=== PATIENT | female | born 1990 | race African-American/Black ===

== ENCOUNTER 2023-02-28 15:03 | Outpatient (OUT) | payer OTHER, SELFPAY ==
--- NOTE | 2023-02-28 15:19 | US_ITS ---
[address] [address] Patient Name: LISHA FONSECA MRN: [id number] date: 1990 Sex: F Assigned Patient Location: [place] Current Patient Location: [place] Accession/Order Number: [id number] Exam Date: 02/28/2023 15:30 Report Date: 02/28/2023 16:47 At the request of: MARIA HARTLEY Procedure: US pelvis w/ transvaginal EXAMINATION: US pelvis w/ transvaginal HISTORY: Menorrhagia w/cycle N92.0, Endometriosis N80.9, D21.9 ; follow-up right ovarian cyst COMPARISON: Ultrasound pelvis 11/29/2022 TECHNIQUE: Transabdominal and/or transvaginal sonographic examination was performed as indicated by examination type. FINDINGS: UTERUS: Normal size and appearance. Uterus size: 9.6 x 4.1 x 5.0 cm ENDOMETRIUM: Normal homogeneous appearance. IUD within endometrial cavity. Endometrial thickness: 2 mm RIGHT OVARY: Contains a 6.5 x 5.7 x 3.9 cm simple appearing cyst. Duplex Doppler demonstrates normal waveform and flow; resistive index 0.5. Ovary size: 7.1 x 4.3 x 6.0 cm LEFT OVARY: Contains a 2.5 x 1.4 x 1.9 cm simple appearing cyst. Duplex Doppler demonstrates normal waveform and flow; resistive index 0.5. Ovary size: 4.4 x 2.3 x 3.0 cm CUL-DE-SAC: Unremarkable. No significant free fluid. BLADDER: Unremarkable. OTHER: None. IMPRESSION: 1. Stable, large, but benign-appearing simple cyst within right ovary. 2. New, 2.5 cm benign-appearing cyst within left ovary. Electronically authenticated by: KALPESH FOWLER Date: 02/28/2023 16:47
== END 2023-02-28 15:04 ==
LOC: US 15:07
PROVIDERS: Visit Provider Obstetrics & Gynecology
DX: N92.0 Excessive and frequent menstruation with regular cycle (principal); N80.9 Endometriosis, unspecified; D21.9 Benign neoplasm of connective and other soft tissue, unspecified; N83.202 Unspecified ovarian cyst, left side
CPT/HCPCS: 76830; 76856

== ENCOUNTER 2023-07-09 20:23 | Outpatient (REF) | payer OTHER, SELFPAY ==
[2023-07-16 11:08] LABS: Age Gdln ACOG Testing Note (.); HPV Aptima Negative (Negative); IGP, Aptima HPV, rfx 16/18,45 Note (.)
== END 2023-07-09 20:24 | disposition home or self-care (01) ==
LOC: LAB 20:23
PROVIDERS: Visit Provider Obstetrics & Gynecology
DX: Z01.419 Encounter for gynecological examination (general) (routine) without abnormal findings (principal)
CPT/HCPCS: 87624; G0145

== ENCOUNTER 2024-02-19 11:12 | Outpatient (OUT) | payer OTHER, SELFPAY ==
--- NOTE | 2024-02-19 11:18 | US_ITS ---
The [address] [address] Patient Name: LISHA FONSECA MRN: [id number] date: 1990 Sex: F Assigned Patient Location: [facility] Current Patient Location: [facility] Accession/Order Number: [id number] Exam Date: 02/19/2024 11:18 Report Date: 02/19/2024 12:27 At the request of: MARIA HARTLEY Procedure: US pelvis transvaginal Ultrasound pelvis, non-obstetric CLINICAL: UNABLE TO LOCATE IUD STRINGS FOR REMOVAL TECHNIQUE: Transvaginal pelvic ultrasound was performed. FINDINGS: Comparison: None. The uterus is anteverted and anteflexed in position. It measures 9.2 x 4.2 x 6.7 cm. There is no discrete myometrial mass. The endometrial complex measures 5 mm in thickness. There is a linear echogenic structure with shadowing seen within the endometrium compatible with intrauterine device. The stem is oriented longitudinally into the lower uterine segment, and the arms of the IUD are seen at the fundus. The right ovary measures 4.4 x 4.1 x 3.1 cm, with a dominant unilocular cyst measuring 3.7 x 3.6 x 2.2 cm. The left ovary measures 3.4 x 2.5 x 2.1 cm. There is normal vascular flow to both ovaries, with resistive index of 0.6 on right and 0.6 on the left. There is no free pelvic fluid or mass seen on either side. US/US pelvis transvaginal IMPRESSION: 1. Intrauterine device located in expected position within the uterus. The stem is oriented longitudinally into the lower uterine segment and the arms of the IUD are at the fundus. Otherwise, normal appearance of the uterus. 2. Dominant 3.4 cm unilocular cyst in right ovary. Otherwise, normal appearance of both ovaries were normal vascular flow. 3. No free pelvic fluid. Electronically authenticated by: JC BOWEN Date: 02/19/2024 12:27
== END 2024-02-19 11:13 | disposition home or self-care (01) ==
LOC: NOMS 11:16
PROVIDERS: Visit Provider Obstetrics & Gynecology
DX: N83.291 Other ovarian cyst, right side (principal); Z30.432 Encounter for removal of intrauterine contraceptive device
CPT/HCPCS: 76830

== ENCOUNTER 2024-02-19 11:59 | Outpatient (OUT) | payer OTHER, SELFPAY | END 2024-02-19 12:00 | disposition home or self-care (01) | LOC: PST 12:00 | PROVIDERS: Visit Provider Obstetrics & Gynecology | DX: Z01.818 Encounter for other preprocedural examination (principal); T83.39XA Other mechanical complication of intrauterine contraceptive device, initial encounter ==

== ENCOUNTER 2024-02-22 07:55 | Day surgery (SDC) | payer OTHER, SELFPAY ==
[2024-02-19 12:34] VITALS: BP 129/72; PULSE 60; TEMP 36.2; O2SAT 100; BMI 28.9
[2024-02-22 08:04] LABS: Basophils Percent Auto 0.3 % (0.2-2.0); Eosinophils Absolute Auto 0.1 10^3/uL (0.0-0.7); Eosinophils Percent Auto 0.7 % (0.9-7.0); Hematocrit 33.5 % (36.0-48.0); Hemoglobin 10.4 g/dL (12.0-16.0); Immature Granulocytes Abs Auto 0.03 10^3/uL (0.00-0.03); Immature Granulocytes Pct Auto 0.3 % (0.0-0.5); Lymphocytes Percent Auto 20.7 % (20.5-60.0); Mean Corpuscular Hemoglobin 23.6 pg (26.7-34.0); Mean Platelet Volume 10.2 fL (9.5-13.5); Monocytes Absolute Auto 0.5 10^3/uL (0.3-0.8); Monocytes Percent Auto 4.8 % (1.7-12.0); Neutrophils Percent Auto 73.2 % (43.0-75.0); Platelet Count 198 10^3/uL (150-450); Red Blood Count 4.41 10^6/uL (4.20-5.40); Red Cell Distribution Width 13.9 % (11.0-15.0); White Blood Count 9.6 10^3/uL (4.0-11.0)
--- OUTSIDE RECORDS SUMMARY | 2024-02-22 08:06 | XMS_ITS | CCD ---
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 Anemia, unspecified; Translations: [Anemia, unspecified] Onset: 12-25-2022 Episodic Immunizations and screening for infectious disease (1 source) Encounter for screening for human papillomavirus (HPV); Translations: [ENC SCREENING HUMAN PAPILLOMAVIRUS] Onset: 07-05-2022 Episodic Other female genital disorders (4 sources) Other specified noninflammatory disorders of vagina; Translations: [OTH SPEC NONINFLAMMATORY D/O VAGINA] Onset: 07-03-2022 Episodic Other gastrointestinal disorders (6 sources) Constipation, unspecified; Translations: [CONSTIPATION UNSPECIFIED] Onset: 04-11-2022 Episodic Other gastrointestinal disorders (4 sources) Intra-abdominal and pelvic swelling, mass and lump, unspecified site; Translations: [INTRA-ABD PELV SWELL MASS LUMP] Onset: 02-20-2022 Episodic Other gastrointestinal disorders (2 sources) Personal history of other diseases of the digestive system; Translations: [Personal history of other diseases of the digestive system] Onset: 12-25-2022 Episodic Other gastrointestinal disorders (3 sources) Abdominal distension (gaseous); Translations: [Abdominal distension (gaseous)] Onset: 01-29-2023 Episodic Other nervous system disorders (4 sources) Other acute postprocedural pain; Translations: [OTHER ACUTE POSTPROCEDURAL PAIN] Onset: 04-18-2022 Episodic Other screening for suspected conditions (not mental disorders or infectious disease) (1 source) Encounter for screening for malignant neoplasm of cervix; Translations: [ENC SCREENING MALIG NEOPLASM CERV] Onset: 07-05-2022 Episodic Spondylosis; intervertebral disc disorders; other back problems (1 source) Cervicalgia; Translations: [Cervicalgia] Onset: 03-14-2023 Episodic Unclassified (4 sources) Onset: 06-03-2015 Resolved: 08-17-2020 08-27-2020 Results Test Name Value Interpretation Reference Range Facility B-Type Natriuretic Peptideon 11-24-2023 Natriuretic peptide B (Bld) [Mass/Vol] 13.0 pg/mL Normal 5-100 [facility] Comment on above: Result Comment: PERF ORMED BY: [place] [address] PATHOLOGIST [employer] CLAU ZAVALA M.D. Performed By: #### E SR, TSH3, CRP #### [place] [address] [place] #### CALPROTECT, CELIAC #### [facility] , Basic Metabolic Panelon 03-0 Anion gap [Moles/Vol] 8.4 mmol/L Normal 6.0-15.0 [facility] Comment on above: Performed By: #### E SR, TSH3, CRP #### [facility] [address] [place] [address] #### CALPROTECT, CELIAC #### [facility] , Calcium [Mass/Vol] 8.8 mg/dL Normal 8.6-10.3 [facility] Comment on above: Performed By: #### E SR, TSH3, CRP #### [facility] [address] [place] [address] [place] #### CALPROTECT, CELIAC #### [facility] , Chloride [Moles/Vol] 104 mmol/L Normal 98-107 [facility] Comment on above: Performed By: #### E SR, TSH3, CRP #### [facility] [address] [place] [address] #### CALPROTECT, CELIAC #### [facility] , CO2 [Moles/Vol] 27.5 mmol/L Normal 21.0-31.0 [facility] Comment on above: Performed By: #### E SR, TSH3, CRP #### [facility] [address] [place] [address] #### CALPROTECT, CELIAC #### [facility] , Creatinine [Mass/Vol] 0.77 mg/dL Normal 0.60-1.20 [facility] Comment on above: Performed By: #### E SR, TSH3, CRP #### [facility] [address] [place] [address] [place] #### CALPROTECT, CELIAC #### [facility] , Creatinine Clr Calc Pharmacy 103.65 Normal [facility] Comment on above: Result Comment: PERF ORMED BY: [place] [address] PATHOLOGIST [employer] CLAU ZAVALA M.D. Performed By: #### E SR, TSH3, CRP #### [place] [address] [place] #### CALPROTECT, CELIAC #### [facility] , GFR/1.73 sq M.predicted MDRD (S/P/Bld) [Vol rate/Area] mL/min/{1.73_m2} Normal [facility] Comment on above: Performed By: #### E SR, TSH3, CRP #### [facility] [address] [place] [address] [place] #### CALPROTECT, CELIAC #### [facility] , Glucose [Mass/Vol] 103 mg/dL High 70-100 [facility] Comment on above: Result Comment: [facility] Glucose Reference Range is dependent on time and content of last meal. Glucose of more than 200 mg/dL in a nonstressed, ambulatory subject supports the diagnosis of Diabetes Mellitus. ADA recommended reference range Performed By: #### E SR, TSH3, CRP #### [place] [address] [place] #### CALPROTECT, CELIAC #### [facility] , Potassium [Moles/Vol] 3.9 mmol/L Normal 3.5-5.1 [facility] Comment on above: Performed By: #### E SR, TSH3, CRP #### [place] [address] [place] #### CALPROTECT, CELIAC #### [facility] , Sodium [Moles/Vol] 136 mmol/L Normal 136-145 [facility] Comment on above: Performed By: #### E SR, TSH3, CRP #### [facility] [address] [place] [address] [place] #### CALPROTECT, CELIAC #### [facility] , Urea nitrogen [Mass/Vol] 16 mg/dL Normal 7-25 [facility] Comment on above: Performed By: #### E SR, TSH3, CRP #### [facility] [address] [place] [address] [place] #### CALPROTECT, CELIAC #### [facility] , Complete Blood Count Auto Di ffon 11-24-2023 Basophils (Bld) [#/Vol] 0.0 10*3/uL Normal 0.0-0.2 [facility] Comment on above: Result Comment: PERF ORMED BY: [place] [address] PATHOLOGIST [employer] CLAU ZAVALA M.D. Performed By: #### E SR, TSH3, CRP #### [address] #### CALPROTECT, CELIAC #### [facility] , Basophils/100 WBC (Bld) 0.6 % Normal . [facility] Comment on above: Performed By: #### E SR, TSH3, CRP #### [address] #### CALPROTECT, CELIAC #### [facility] , Eosinophils (Bld) [#/Vol] 0.1 10*3/uL Normal 0.0-0.45 [facility] Comment on above: Performed By: #### E SR, TSH3, CRP #### [facility] [address] [place] [address] #### CALPROTECT, CELIAC #### [facility] , Eosinophils/100 WBC (Bld) 1.8 % Normal . [facility] Comment on above: Performed By: #### E SR, TSH3, CRP #### [place] [address] [place] #### CALPROTECT, CELIAC #### [facility] , Erythrocyte distribution width (RBC) [Ratio] 14.3 % Normal 11.9-15.3 [facility] Comment on above: Performed By: #### E SR, TSH3, CRP #### [place] [address] [place] #### CALPROTECT, CELIAC #### [facility] , Hematocrit (Bld) [Volume fraction] 34.8 % Normal 34.0-46.4 [facility] Comment on above: Performed By: #### E SR, TSH3, CRP #### [facility] [address] [place] [address] #### CALPROTECT, CELIAC #### [facility] , Hemoglobin (Bld) [Mass/Vol] 10.9 g/dL Low 11.8-15.4 [facility] Comment on above: Performed By: #### E SR, TSH3, CRP #### [place] [address] [place] #### CALPROTECT, CELIAC #### [facility] , Lymphocytes (Bld) [#/Vol] 1.9 10*3/uL Normal 1.00-4.8 [facility] Comment on above: Performed By: #### E SR, TSH3, CRP #### [facility] [address] [place] [address] #### CALPROTECT, CELIAC #### [facility] , Lymphocytes/100 WBC (Bld) 22.7 % Normal . [facility] Comment on above: Performed By: #### E SR, TSH3, CRP #### [address] #### CALPROTECT, CELIAC #### [facility] , MCH (RBC) [Entitic mass] 23.1 pg Low 24.7-34.3 [facility] Comment on above: Performed By: #### E SR, TSH3, CRP #### [facility] [address] [place] [address] [place] #### CALPROTECT, CELIAC #### [facility] , MCV (RBC) [Entitic vol] 74.1 fL Low 80-100 [facility] Comment on above: Performed By: #### E SR, TSH3, CRP #### [address] [place] [address] [place] #### CALPROTECT, CELIAC #### [facility] , Mean Corpuscular HGB Conc 31.3 g/dL Low 32.0-35.0 [facility] Comment on above: Performed By: #### E SR, TSH3, CRP #### [facility] [address] [place] [address] [place] #### CALPROTECT, CELIAC #### [facility] , Monocytes (Bld) [#/Vol] 0.5 10*3/uL Normal 0.0-0.8 [facility] Comment on above: Performed By: #### E SR, TSH3, CRP #### [address] #### CALPROTECT, CELIAC #### [facility] , Monocytes/100 WBC (Bld) 18.34 % Normal 0.00-20.00 [facility] Comment on above: Performed By: #### E SR, TSH3, CRP #### [facility] [address] [place] [address] [place] #### CALPROTECT, CELIAC #### [facility] , Monocytes/100 WBC (Bld) 6.4 % Normal . [facility] Comment on above: Performed By: #### E SR, TSH3, CRP #### [facility] [address] [place] [address] [place] #### CALPROTECT, CELIAC #### [facility] , Neutrophils (Bld) [#/Vol] 5.7 10*3/uL Normal 1.8-7.7 [facility] Comment on above: Performed By: #### E SR, TSH3, CRP #### [facility] [address] [place] [address] [place] #### CALPROTECT, CELIAC #### [facility] , Neutrophils/100 WBC (Bld) 68.5 % Normal . [facility] Comment on above: Performed By: #### E SR, TSH3, CRP #### [facility] [address] [place] [address] [place] #### CALPROTECT, CELIAC #### [facility] , NRBC% 0.1 /100{WBC} Normal 0-0.5 [facility] Comment on above: Performed By: #### E SR, TSH3, CRP #### [facility] [address] [place] [address] [place] #### CALPROTECT, CELIAC #### [facility] , Platelet mean volume (Bld) [Entitic vol] 9.1 fL Normal 6.3-10.7 [facility] Comment on above: Performed By: #### E SR, TSH3, CRP #### [facility] [address] [place] [address] #### CALPROTECT, CELIAC #### [facility] , Platelets (Bld) [#/Vol] 191 10*3/uL Normal 150-450 [facility] Comment on above: Performed By: #### E SR, TSH3, CRP #### [facility] [address] [place] [address] [place] #### CALPROTECT, CELIAC #### [facility] , RBC (Bld) [#/Vol] 4.70 10*6/uL Normal 3.60-5.00 [facility] Comment on above: Performed By: #### E SR, TSH3, CRP #### [facility] [address] [place] [address] [place] #### CALPROTECT, CELIAC #### [facility] , WBC (Bld) [#/Vol] 8.3 10*3/uL Normal 3.8-11.6 [facility] Comment on above: Performed By: #### E SR, TSH3, CRP #### [facility] [address] [place] [address] [place] #### CALPROTECT, CELIAC #### [facility] , Creatine Kinaseon 11-24-2023 CK [Catalytic activity/Vol] 97 U/L Normal 30-223 [facility] Comment on above: Performed By: #### E SR, TSH3, CRP #### [facility] [address] [place] [address] [place] #### CALPROTECT, CELIAC #### [facility] , Dipstick and Microscopicon 0 11-24-2023 Appearance (U) Clear Normal Clear [facility] Comment on above: Order Comment: Reaso n for Exam History of IBS;Constipation PT IS NON FASTING Performed By: #### E SR, TSH3, CRP #### [facility] [address] [place] [address] [place] #### CALPROTECT, CELIAC #### [facility] , Bacteria,Urine None Seen Normal None Seen [facility] Comment on above: Order Comment: Reaso n for Exam History of IBS;Constipation PT IS NON FASTING Performed By: #### E SR, TSH3, CRP #### [facility] [address] [place] [address] [place] #### CALPROTECT, CELIAC #### [facility] , Bilirubin,Urine Negative Normal Negative [facility] Comment on above: Order Comment: Reaso n for Exam History of IBS;Constipation PT IS NON FASTING Performed By: #### E SR, TSH3, CRP #### [facility] [address] [place] [address] [place] #### CALPROTECT, CELIAC #### [facility] , Color (U) Yellow Normal Yellow [facility] Comment on above: Order Comment: Reaso n for Exam History of IBS;Constipation PT IS NON FASTING Performed By: #### E SR, TSH3, CRP #### [facility] [address] [place] [address] [place] #### CALPROTECT, CELIAC #### [facility] , Glucose Ql (U) Normal Normal Normal [facility] Comment on above: Order Comment: Reaso n for Exam History of IBS;Constipation PT IS NON FASTING Performed By: #### E SR, TSH3, CRP #### [facility] [address] [place] [address] [place] #### CALPROTECT, CELIAC #### [facility] , Hyaline Casts,Urine 0-8 Normal 0-8 [facility] Comment on above: Order Comment: Reaso n for Exam History of IBS;Constipation PT IS NON FASTING Performed By: #### E SR, TSH3, CRP #### [facility] [address] [place] [address] [place] #### CALPROTECT, CELIAC #### [facility] , Ketones Ql (U) Negative Normal Negative [facility] Comment on above: Order Comment: Reaso n for Exam History of IBS;Constipation PT IS NON FASTING Performed By: #### E SR, TSH3, CRP #### [facility] [address] [place] [address] [place] #### CALPROTECT, CELIAC #### [facility] , Leukocyte esterase Test strip Ql (U) Negative Normal Negative [facility] Comment on above: Order Comment: Reaso n for Exam History of IBS;Constipation PT IS NON FASTING Performed By: #### E SR, TSH3, CRP #### [facility] [address] [place] [address] [place] #### CALPROTECT, CELIAC #### [facility] , Nitrite,Urine Negative Normal Negative [facility] Comment on above: Order Comment: Reaso n for Exam History of IBS;Constipation PT IS NON FASTING Performed By: #### E SR, TSH3, CRP #### [facility] [address] [place] [address] [place] #### CALPROTECT, CELIAC #### [facility] , Occult Blood,Urine 1+ High Negative [facility] Comment on above: Order Comment: Reaso n for Exam History of IBS;Constipation PT IS NON FASTING Performed By: #### E SR, TSH3, CRP #### [facility] [address] [place] [address] [place] #### CALPROTECT, CELIAC #### [facility] , pH (U) 7.0 [pH] Normal 5.0-9.0 [facility] Comment on above: Order Comment: Reaso n for Exam History of IBS;Constipation PT IS NON FASTING Performed By: #### E SR, TSH3, CRP #### [facility] [address] [place] [address] [place] #### CALPROTECT, CELIAC #### [facility] , Protein,Urine Negative Normal Negative [facility] Comment on above: Order Comment: Reaso n for Exam History of IBS;Constipation PT IS NON FASTING Performed By: #### E SR, TSH3, CRP #### [facility] [address] [place] [address] #### CALPROTECT, CELIAC #### [facility] , RBC,Urine 10-19 High 0-4 [facility] Comment on above: Order Comment: Reaso n for Exam History of IBS;Constipation PT IS NON FASTING Performed By: #### E SR, TSH3, CRP #### [facility] [address] [place] [address] [place] #### CALPROTECT, CELIAC #### [facility] , Specificy [place],Urine 1.022 Normal 1.001-1.03 0 [facility] Comment on above: Order Comment: Reaso n for Exam History of IBS;Constipation PT IS NON FASTING Performed By: #### E SR, TSH3, CRP #### [facility] [address] [place] [address] [place] #### CALPROTECT, CELIAC #### [facility] , Squamous Epithelial Cell,Urine 3-4 High 0-2 [facility] Comment on above: Order Comment: Reaso n for Exam History of IBS;Constipation PT IS NON FASTING Performed By: #### E SR, TSH3, CRP #### [facility] [address] [place] [address] [place] #### CALPROTECT, CELIAC #### [facility] , Urobilinogen,Urine Normal Normal Normal [facility] Comment on above: Order Comment: Reaso n for Exam History of IBS;Constipation PT IS NON FASTING Performed By: #### E SR, TSH3, CRP #### [facility] [address] [place] [address] [place] #### CALPROTECT, CELIAC #### [facility] , WBC,Urine 1-2 Normal 0-4 [facility] Comment on above: Order Comment: Reaso n for Exam History of IBS;Constipation PT IS NON FASTING Performed By: #### E SR, TSH3, CRP #### [facility] [address] [place] [address] [place] #### CALPROTECT, CELIAC #### [facility] , ECG 12 lead ECGon 11-24-2023 ECG 12 lead ECG [facility] [place] [address] [place] [address] Electrocardiograph Report Signed Patient: Leandra Fonseca MR#: [id number] : 1990 Acct:[id number] Age/Sex: 33 / F ADM Date: 11/24/23 Loc: ER Room: Type: [facility] ER Attending Dr: Ordering Provider: Jim Vega DO Date of Service: 11/24/2306/10/731 ECG/ECG 12 lead ECG: Chest Pain Copies to: Test Reason : Blood Pressure : 116/071 mmHG Vent. Rate : 074 BPM Atrial Rate : 074 BPM P-R Int : 158 ms QRS Dur : 082 ms QT Int : 372 ms P-R-T Axes : 068 077 033 degrees QTc Int : 412 ms Normal sinus rhythm Normal ECG When compared with ECG of 21-SEP-2022 12:07, No significant change was found Confirmed by Jim Vega DO ([id number]) on 11/24/2023 9:23:04 AM Referred By: Electronically Signed By:Jim Vega DO Transcribed By: MUS Signed By Jim Vega DO 0923 [facility] HCG,Urineon 11-24-2023 Beta HCG ( test) Ql (U) Negative [facility] Comment on above: Order Comment: Reaso n for Exam History of IBS;Constipation PT IS NON FASTING Result Comment: PERF ORMED BY: [place] [address] PATHOLOGIST [employer] CLAU ZAVALA M.D. Performed By: #### E SR, TSH3, CRP #### [facility] [address] [place] [address] #### CALPROTECT, CELIAC #### [facility] , Hepatic Panelon 11-24-2023 Albumin [Mass/Vol] 4.0 g/dL Normal 3.5-5.7 [facility] Comment on above: Performed By: #### E SR, TSH3, CRP #### [facility] [address] [place] [address] [place] #### CALPROTECT, CELIAC #### [facility] , Albumin/Globulin [Mass ratio] 1.4 {ratio} [facility] Comment on above: Performed By: #### E SR, TSH3, CRP #### [facility] [address] [place] [address] [place] #### CALPROTECT, CELIAC #### [facility] , ALP [Catalytic activity/Vol] 42 U/L Normal 34-104 [facility] Comment on above: Performed By: #### E SR, TSH3, CRP #### [facility] [address] [place] [address] [place] #### CALPROTECT, CELIAC #### [facility] , ALT [Catalytic activity/Vol] 11 U/L Normal 7-52 [facility] Comment on above: Performed By: #### E SR, TSH3, CRP #### [facility] [address] [place] [address] [place] #### CALPROTECT, CELIAC #### [facility] , AST [Catalytic activity/Vol] 12 U/L Low 13-39 [facility] Comment on above: Performed By: #### E SR, TSH3, CRP #### [facility] [address] [place] [address] [place] #### CALPROTECT, CELIAC #### [facility] , Bilirubin [Mass/Vol] 0.4 mg/dL Normal 0.3-1.0 [facility] Comment on above: Performed By: #### E SR, TSH3, CRP #### [facility] [address] [place] [address] [place] #### CALPROTECT, CELIAC #### [facility] , Bilirubin,Indirect 0.3 mg/dL Normal [facility] Comment on above: Performed By: #### E SR, TSH3, CRP #### [facility] [address] [place] [address] [place] #### CALPROTECT, CELIAC #### [facility] , Bilirubin.indirect [Mass/Vol] 0.10 mg/dL Normal 0.03-0.18 [facility] Comment on above: Performed By: #### E SR, TSH3, CRP #### [facility] [address] [place] [address] [place] #### CALPROTECT, CELIAC #### [facility] , Globulin (S) [Mass/Vol] 2.9 g/dL Normal [facility] Comment on above: Performed By: #### E SR, TSH3, CRP #### [facility] [address] [place] [address] [place] #### CALPROTECT, CELIAC #### [facility] , Protein [Mass/Vol] 6.9 g/dL Normal 6.4-8.9 [facility] Comment on above: Performed By: #### E SR, TSH3, CRP #### [facility] [address] [place] [address] [place] #### CALPROTECT, CELIAC #### [facility] , Partial Thromboplastin Timeo n 11-24-2023 aPTT Coag (Bld) [Time] 30.8 s Normal 25.1-36.5 [facility] Comment on above: Result Comment: A he matocrit value greater than 55% may lead to inaccurate results in coagulation testing. Patients having hematocrit values >55% require a special collection tube for coagulation studies. Please contact the laboratory at [phone] for redraw instructions. PERFORMED BY: [place] [address] PATHOLOGIST [employer]NA[employer] CLAU ZAVALA M.D. Performed By: #### E SR, TSH3, CRP #### [address] #### CALPROTECT, CELIAC #### [facility] , Prothrombin Time INRon 11-23 INR Coag (PPP) [Relative time] 1.1 {INR} Normal [facility] Comment on above: Result Comment: INR Therapeutic Range A) Pre- and Peroperative OAT started two weeks before surgery. NOT HIP SURGERY: 1.5 - 2.5 HIP SURGERY: 2 - 3 B) Primary and secondary prevention of venous THROMBOSIS: 2 - 3 C) Active venous thrombosis, pulmonary embolism and prevention of recurrent venous thrombosis: 2 - 3 D) Prevention of arterial thromboembolism including patients with mechanical heart valves: 3 - 4.5 Performed By: #### E SR, TSH3, CRP #### [facility] [address] [place] [address] [place] #### CALPROTECT, CELIAC #### [facility] , PT Coag (PPP) [Time] 12.9 s Normal 9.0-12.9 [facility] Comment on above: Result Comment: A he matocrit value greater than 55% may lead to inaccurate results in coagulation testing. Patients having hematocrit values >55% require a special collection tube for coagulation studies. Please contact the laboratory at [phone] for redraw instructions. Performed By: #### E SR, TSH3, CRP #### [place] [address] [place] #### CALPROTECT, CELIAC #### [facility] , Troponin I High Sensitivityo n 11-24-2023 Troponin I High Sensitivity < 2.3 Normal 0.0-15.0 [facility] Comment on above: Result Comment: PERF ORMED BY: [place] [address] PATHOLOGIST [employer]NAGER CLAU ZAVALA M.D. Performed By: #### E SR, TSH3, CRP #### [facility] [address] [place] [address] #### CALPROTECT, CELIAC #### [facility] , XR chest 1V portableon 11-23 XR chest 1V portable [facility] [place] [address] [place] [address] XRay Report Signed Patient: Leandra Fonseca MR#: [id number] : 1990 Acct:[id number] Age/Sex: 33 / F ADM Date: 11/24/23 Loc: ER Room: Type: [facility] ER Attending Dr: Copies to: Jim Vega DO Ordering Provider: Jim Vega DO Date of Service: 11/24/23 XR/XR chest 1V portable: Chest Pain PORTABLE AP ERECT CHEST 0844 hours CLINICAL HISTORY: Left-sided chest pressure radiating to the arm. Blurred vision. COMPARISON: 09/21/2022 The heart is within normal limits. There is no vascular congestion. The lungs, as visualized, are clear. There is no effusion or pneumothorax. The osseous structures are intact. XR/XR chest 1V portable IMPRESSION: NO ACUTE FINDINGS Impression dictated by: Michell Miller M.D.11/24/2023 11:32 AM Dictation Location: [place] [address] Transcribed By: [facility] 11/24/23 1132 Dictated By: Michell Miller MD 11/24/23 1131 Signed By: 11/24/23 1132 Normal [facility] Basic Metabolic Panelon 10-19 Anion gap [Moles/Vol] 11.0 mmol/L Normal 6.0-15.0 [facility] Comment on above: Performed By: #### L IPASE, HEPATIC, CBC, PT, BMP, PTT #### [facility] [address] Calcium [Mass/Vol] 8.6 mg/dL Normal 8.6-10.3 [facility] Comment on above: Performed By: #### L IPASE, HEPATIC, CBC, PT, BMP, PTT #### [facility] [address] Chloride [Moles/Vol] 107 mmol/L Normal 98-107 [facility] Comment on above: Performed By: #### L IPASE, HEPATIC, CBC, PT, BMP, PTT #### [facility] [address] CO2 [Moles/Vol] 22.9 mmol/L Normal 21.0-31.0 [facility] Comment on above: Performed By: #### L IPASE, HEPATIC, CBC, PT, BMP, PTT #### [facility] [address] Creatinine [Mass/Vol] 0.64 mg/dL Normal 0.60-1.20 [facility] Comment on above: Performed By: #### L IPASE, HEPATIC, CBC, PT, BMP, PTT #### [facility] [address] [place] [address] [place] [facility] 124.50 [facility] Comment on above: Performed By: #### L IPASE, HEPATIC, CBC, PT, BMP, PTT #### [facility] [address] [place] [address] [place] GFR/1.73 sq M.predicted MDRD (S/P/Bld) [Vol rate/Area] mL/min/{1.73_m2} [facility] Comment on above: Performed By: #### L IPASE, HEPATIC, CBC, PT, BMP, PTT #### [facility] [address] [place] [address] [place] Glucose [Mass/Vol] 94 mg/dL Normal 70-100 [facility] Comment on above: Result Comment: [place] Glucose Reference Range is dependent on time and content of last meal. Glucose of more than 200 mg/dL in a nonstressed, ambulatory subject supports the diagnosis of Diabetes Mellitus. ADA recommended reference range Performed By: #### L IPASE, HEPATIC, CBC, PT, BMP, PTT #### [facility] [address] Potassium [Moles/Vol] 3.9 mmol/L Normal 3.5-5.1 [facility] Comment on above: Performed By: #### L IPASE, HEPATIC, CBC, PT, BMP, PTT #### [facility] [address] Sodium [Moles/Vol] 137 mmol/L Normal 136-145 [facility] Comment on above: Performed By: #### L IPASE, HEPATIC, CBC, PT, BMP, PTT #### [facility] [address] Urea nitrogen [Mass/Vol] 12 mg/dL Normal 7-25 [facility] Comment on above: Performed By: #### L IPASE, HEPATIC, CBC, PT, BMP, PTT #### [facility] [address] abdomen pelvis w conon CT abdomen pelvis w con [facility] [place] [address] [place] [address] CT Scan Report Signed Patient: Leandra Fonseca MR#: [id number] : 1990 Acct:[id number] Age/Sex: 33 / F ADM Date: 11/13/23 Loc: ER Room: Type: [facility] ER Attending Dr: Copies to: Frank Silva DO Ordering Provider: Frank Silva DO Date of Service: 11/13/23 CT/CT abdomen pelvis w con: Abdominal Pain CT abdomen pelvis w con 11/13/2023 10:28 AM SIGNS AND SYMPTOMS: Abdominal pain, nausea, burning with urination TECHNIQUE: Multidetector ct axial images of the abdomen and pelvis were obtained with IV contrast. Multiplanar reformats were performed and reviewed to further define anatomy and possible pathology. CT was performed with one or more of the following dose reduction techniques: Automated exposure control, adjustment of the mA and/or kV according to patient size, or use of iterative reconstruction technique. COMPARISON: 07/04/2022 FINDINGS: Lower Chest: Within normal limits. ABDOMEN: Liver: Within normal limits. Bile Ducts: Normal caliber. Gallbladder: No calcified gallstones. Normal caliber wall. Pancreas: Within normal limits. Spleen: Within normal limits. Adrenals: Within normal limits. Kidneys: Within normal limits. Pelvis: Reproductive Organs: There is an intrauterine device which is in satisfactory position. The adnexa are heterogeneous bilaterally with multiple septations, right greater than left. Ureters: Within normal limits. Bladder: There is dependent gas within the bladder which may represent sequelae of cystitis secondary to a gas-forming organism. Bowel: Normal caliber. Mesenteric Lymph Nodes: No enlarged mesenteric lymph nodes. Peritoneum: There is intra-abdominal ascites. Vessels: within normal limits Retroperitoneum: Within normal limits. Abdominal Wall: There is a soft tissue attenuating structure along the right lower anterior abdominal wall measuring 2.1 cm in greatest dimension. An ectopic focus of endometriosis is not exc luded. Correlation with history of laparoscopic surgical intervention in this site is recommended. Bones: Within normal limits. CT/CT abdomen pelvis w con IMPRESSION: There is dependent gas within the bladder which may represent sequelae of cystitis secondary to a gas-forming organism. There is intra-abdominal ascites. The adnexa are heterogeneous bilaterally with multiple septations, right greater than left. There is a soft tissue attenuating structure along the right lower anterior abdominal wall measuring 2.1 cm in greatest dimension. An ectopic focus of endometriosis is not excluded. Correlation with history of laparoscopic surgical intervention in this site is recommended. Impression dictated by: Rebecca Ybarra M.D.11/13/2023 10:47 AM Dictation Location: [place] [address] Transcribed By: [facility] 11/13/23 1047 Dictated By: Rebecca Ybarra II, MD 11/13/23 1036 Signed By: 11/13/23 1047 [facility] Complete Blood Count Auto Di ffon 11-13-2023 Basophils (Bld) [#/Vol] 0.1 10*3/uL Normal 0.0-0.2 [facility] Comment on above: Result Comment: PERF ORMED BY: [place] [address] PATHOLOGIST [employer] CLAU ZAVALA M.D. Performed By: #### L IPASE, HEPATIC, CBC, PT, BMP, PTT #### [address] Basophils/100 WBC (Bld) 0.7 % Normal . [facility] Comment on above: Performed By: #### L IPASE, HEPATIC, CBC, PT, BMP, PTT #### [address] Eosinophils (Bld) [#/Vol] 0.1 10*3/uL Normal 0.0-0.45 [facility] Comment on above: Performed By: #### L IPASE, HEPATIC, CBC, PT, BMP, PTT #### [address] Eosinophils/100 WBC (Bld) 1.5 % Normal . [facility] Comment on above: Performed By: #### L IPASE, HEPATIC, CBC, PT, BMP, PTT #### [address] Erythrocyte distribution width (RBC) [Ratio] 14.6 % Normal 11.9-15.3 [facility] Comment on above: Performed By: #### L IPASE, HEPATIC, CBC, PT, BMP, PTT #### [address] Hematocrit (Bld) [Volume fraction] 34.1 % Normal 34.0-46.4 [facility] Comment on above: Performed By: #### L IPASE, HEPATIC, CBC, PT, BMP, PTT #### [address] Hemoglobin (Bld) [Mass/Vol] 10.9 g/dL Low 11.8-15.4 [facility] Comment on above: Performed By: #### L IPASE, HEPATIC, CBC, PT, BMP, PTT #### [address] Lymphocytes (Bld) [#/Vol] 1.9 10*3/uL Normal 1.00-4.8 [facility] Comment on above: Performed By: #### L IPASE, HEPATIC, CBC, PT, BMP, PTT #### [address] Lymphocytes/100 WBC (Bld) 23.7 % Normal . [facility] Comment on above: Performed By: #### L IPASE, HEPATIC, CBC, PT, BMP, PTT #### [address] MCH (RBC) [Entitic mass] 23.7 pg Low 24.7-34.3 [facility] Comment on above: Performed By: #### L IPASE, HEPATIC, CBC, PT, BMP, PTT #### [address] MCV (RBC) [Entitic vol] 74.1 fL Low 80-100 [facility] Comment on above: Performed By: #### L IPASE, HEPATIC, CBC, PT, BMP, PTT #### [address] Mean Corpuscular HGB Conc 31.9 g/dL Low 32.0-35.0 [facility] Comment on above: Performed By: #### L IPASE, HEPATIC, CBC, PT, BMP, PTT #### [address] Monocytes (Bld) [#/Vol] 0.5 10*3/uL Normal 0.0-0.8 [facility] Comment on above: Performed By: #### L IPASE, HEPATIC, CBC, PT, BMP, PTT #### [address] Monocytes/100 WBC (Bld) 18.59 % Normal 0.00-20.00 [facility] Comment on above: Performed By: #### L IPASE, HEPATIC, CBC, PT, BMP, PTT #### [address] Monocytes/100 WBC (Bld) 6.9 % Normal . [facility] Comment on above: Performed By: #### L IPASE, HEPATIC, CBC, PT, BMP, PTT #### [address] Neutrophils (Bld) [#/Vol] 5.3 10*3/uL Normal 1.8-7.7 [facility] Comment on above: Performed By: #### L IPASE, HEPATIC, CBC, PT, BMP, PTT #### [address] Neutrophils/100 WBC (Bld) 67.2 % Normal . [facility] Comment on above: Performed By: #### L IPASE, HEPATIC, CBC, PT, BMP, PTT #### [address] NRBC% 0.1 /100{WBC} Normal 0-0.5 [facility] Comment on above: Performed By: #### L IPASE, HEPATIC, CBC, PT, BMP, PTT #### [address] Platelet mean volume (Bld) [Entitic vol] 9.2 fL Normal 6.3-10.7 [facility] Comment on above: Performed By: #### L IPASE, HEPATIC, CBC, PT, BMP, PTT #### [place] [address] [place] Platelets (Bld) [#/Vol] 199 10*3/uL Normal 150-450 [facility] Comment on above: Performed By: #### L IPASE, HEPATIC, CBC, PT, BMP, PTT #### [place] [address] [place] RBC (Bld) [#/Vol] 4.60 10*6/uL Normal 3.60-5.00 [facility] Comment on above: Performed By: #### L IPASE, HEPATIC, CBC, PT, BMP, PTT #### [address] [place] [address] [place] WBC (Bld) [#/Vol] 7.9 10*3/uL Normal 3.8-11.6 [facility] Comment on above: Performed By: #### L IPASE, HEPATIC, CBC, PT, BMP, PTT #### [address] Dipstick and Microscopicon 0 11-13-2023 Appearance (U) Clear Normal Clear [facility] Comment on above: Order Comment: Reaso n for Exam History of IBS;Constipation Performed By: #### E SR, TSH3, CRP #### [address] #### CALPROTECT, CELIAC #### [facility] , Bacteria,Urine None Seen Normal None Seen [facility] Comment on above: Order Comment: Reaso n for Exam History of IBS;Constipation Performed By: #### E SR, TSH3, CRP #### [address] #### CALPROTECT, CELIAC #### [facility] , Bilirubin,Urine Negative Normal Negative [facility] Comment on above: Order Comment: Reaso n for Exam History of IBS;Constipation Performed By: #### E SR, TSH3, CRP #### [address] #### CALPROTECT, CELIAC #### [facility] , Color (U) Yellow Normal Yellow [facility] Comment on above: Order Comment: Reaso n for Exam History of IBS;Constipation Performed By: #### E SR, TSH3, CRP #### [facility] [address] [place] [address] [place] #### CALPROTECT, CELIAC #### [facility] , Glucose Ql (U) Normal Normal Normal [facility] Comment on above: Order Comment: Reaso n for Exam History of IBS;Constipation Performed By: #### E SR, TSH3, CRP #### [facility] [address] [place] [address] [place] #### CALPROTECT, CELIAC #### [facility] , Hyaline Casts,Urine None Seen Normal 0-8 [facility] Comment on above: Order Comment: Reaso n for Exam History of IBS;Constipation Performed By: #### E SR, TSH3, CRP #### [facility] [address] [place] [address] [place] #### CALPROTECT, CELIAC #### [facility] , Ketones Ql (U) Negative Normal Negative [facility] Comment on above: Order Comment: Reaso n for Exam History of IBS;Constipation Performed By: #### E SR, TSH3, CRP #### [facility] [address] [place] [address] #### CALPROTECT, CELIAC #### [facility] , Leukocyte esterase Test strip Ql (U) Negative Normal Negative [facility] Comment on above: Order Comment: Reaso n for Exam History of IBS;Constipation Performed By: #### E SR, TSH3, CRP #### [facility] [address] [place] [address] #### CALPROTECT, CELIAC #### [facility] , Nitrite,Urine Negative Normal Negative [facility] Comment on above: Order Comment: Reaso n for Exam History of IBS;Constipation Performed By: #### E SR, TSH3, CRP #### [facility] [address] [place] [address] [place] #### CALPROTECT, CELIAC #### [facility] , Occult Blood,Urine 1+ High Negative [facility] Comment on above: Order Comment: Reaso n for Exam History of IBS;Constipation Performed By: #### E SR, TSH3, CRP #### [facility] [address] [place] [address] [place] #### CALPROTECT, CELIAC #### [facility] , pH (U) 6.5 [pH] Normal 5.0-9.0 [facility] Comment on above: Order Comment: Reaso n for Exam History of IBS;Constipation Performed By: #### E SR, TSH3, CRP #### [facility] [address] [place] [address] [place] #### CALPROTECT, CELIAC #### [facility] , Protein,Urine Negative Normal Negative [facility] Comment on above: Order Comment: Reaso n for Exam History of IBS;Constipation Performed By: #### E SR, TSH3, CRP #### [facility] [address] [place] [address] #### CALPROTECT, CELIAC #### [facility] , RBC,Urine 5-9 High 0-4 [facility] Comment on above: Order Comment: Reaso n for Exam History of IBS;Constipation Performed By: #### E SR, TSH3, CRP #### [facility] [address] [place] [address] [place] #### CALPROTECT, CELIAC #### [facility] , Specificy [place],Urine 1.011 Normal 1.001-1.03 0 [facility] Comment on above: Order Comment: Reaso n for Exam History of IBS;Constipation Performed By: #### E SR, TSH3, CRP #### [facility] [address] [place] [address] [place] #### CALPROTECT, CELIAC #### [facility] , Squamous Epithelial Cell,Urine None Seen Normal 0-2 [facility] Comment on above: Order Comment: Reaso n for Exam History of IBS;Constipation Performed By: #### E SR, TSH3, CRP #### [facility] [address] [place] [address] [place] #### CALPROTECT, CELIAC #### [facility] , Urobilinogen,Urine Normal Normal Normal [facility] Comment on above: Order Comment: Reaso n for Exam History of IBS;Constipation Performed By: #### E SR, TSH3, CRP #### [facility] [address] [place] [address] #### CALPROTECT, CELIAC #### [facility] , WBC LM.HPF (Urine sed) [#/Area] 0 /[HPF] Normal 0-4 [facility] Comment on above: Order Comment: Reaso n for Exam History of IBS;Constipation Performed By: #### E SR, TSH3, CRP #### [facility] [address] [place] [address] #### CALPROTECT, CELIAC #### [facility] , HCG,Urineon 11-13-2023 Beta HCG ( test) Ql (U) Negative Normal [facility] Comment on above: Order Comment: Reaso n for Exam History of IBS;Constipation Result Comment: PERF ORMED BY: [place] [address] PATHOLOGIST [employer] CLAU ZAVALA M.D. Performed By: #### E SR, TSH3, CRP #### [address] #### CALPROTECT, CELIAC #### [facility] , Hepatic Panelon 11-13-2023 Albumin [Mass/Vol] 4.1 g/dL Normal 3.5-5.7 [facility] Comment on above: Performed By: #### L IPASE, HEPATIC, CBC, PT, BMP, PTT #### [address] Albumin/Globulin [Mass ratio] 1.5 {ratio} Normal [facility] Comment on above: Performed By: #### L IPASE, HEPATIC, CBC, PT, BMP, PTT #### [facility] [address] [place] [address] ALP [Catalytic activity/Vol] 39 U/L Normal 34-104 [facility] Comment on above: Performed By: #### L IPASE, HEPATIC, CBC, PT, BMP, PTT #### [address] ALT [Catalytic activity/Vol] 10 U/L Normal 7-52 [facility] Comment on above: Performed By: #### L IPASE, HEPATIC, CBC, PT, BMP, PTT #### [address] AST [Catalytic activity/Vol] 12 U/L Low 13-39 [facility] Comment on above: Performed By: #### L IPASE, HEPATIC, CBC, PT, BMP, PTT #### [address] Bilirubin [Mass/Vol] 0.4 mg/dL Normal 0.3-1.0 [facility] Comment on above: Performed By: #### L IPASE, HEPATIC, CBC, PT, BMP, PTT #### [address] Bilirubin,Indirect 0.3 mg/dL Normal [facility] Comment on above: Performed By: #### L IPASE, HEPATIC, CBC, PT, BMP, PTT #### [address] Bilirubin.indirect [Mass/Vol] 0.10 mg/dL Normal 0.03-0.18 [facility] Comment on above: Performed By: #### L IPASE, HEPATIC, CBC, PT, BMP, PTT #### [address] Globulin (S) [Mass/Vol] 2.8 g/dL Normal [facility] Comment on above: Performed By: #### L IPASE, HEPATIC, CBC, PT, BMP, PTT #### [address] Protein [Mass/Vol] 6.9 g/dL Normal 6.4-8.9 [facility] Comment on above: Performed By: #### L IPASE, HEPATIC, CBC, PT, BMP, PTT #### [address] Lipaseon 11-13-2023 Lipase [Catalytic activity/Vol] 39.0 U/L Normal 11.0-82.0 [facility] Comment on above: Result Comment: PERF ORMED BY: [place] [address] PATHOLOGIST [employer] CLAU ZAVALA M.D. Performed By: #### L IPASE, HEPATIC, CBC, PT, BMP, PTT #### [address] Partial Thromboplastin Timeo n 11-13-2023 aPTT Coag (Bld) [Time] 29.8 s Normal 25.1-36.5 [facility] Comment on above: Result Comment: A he matocrit value greater than 55% may lead to inaccurate results in coagulation testing. Patients having hematocrit values >55% require a special collection tube for coagulation studies. Please contact the laboratory at [phone] for redraw instructions. PERFORMED BY: [place] [address] PATHOLOGIST [employer] CLAU ZAVALA M.D. Performed By: #### E SR, TSH3, CRP #### [place] [address] [place] #### CALPROTECT, CELIAC #### [facility] , Prothrombin Time INRon 11-13 INR Coag (PPP) [Relative time] 1.0 {INR} Normal [facility] Comment on above: Result Comment: INR Therapeutic Range A) Pre- and Peroperative OAT started two weeks before surgery. NOT HIP SURGERY: 1.5 - 2.5 HIP SURGERY: 2 - 3 B) Primary and secondary prevention of venous THROMBOSIS: 2 - 3 C) Active venous thrombosis, pulmonary embolism and prevention of recurrent venous thrombosis: 2 - 3 D) Prevention of arterial thromboembolism including patients with mechanical heart valves: 3 - 4.5 Performed By: #### L IPASE, HEPATIC, CBC, PT, BMP, PTT #### [address] PT Coag (PPP) [Time] 12.0 s Normal 9.0-12.9 [facility] Comment on above: Result Comment: A he matocrit value greater than 55% may lead to inaccurate results in coagulation testing. Patients having hematocrit values >55% require a special collection tube for coagulation studies. Please contact the laboratory at [phone] for redraw instructions. Performed By: #### L IPASE, HEPATIC, CBC, PT, BMP, PTT #### [facility] [address] [place] [id number] [facility] Physician Referralon 024 Physician Referral [id number] Normal [facility] Alanine aminotransferase [En zymatic activity/volume] in Serum or PlasmaOrdered By: Kelly Hough on 09-27-2023 ALT [Catalytic activity/Vol] 9 U/L 7-52 [facility] Albumin [Mass/volume] in Ser um or Plasma by Bromocresol green (BCG) dye binding methoOrdered By: Kelly Hough on 09-27-2023 Albumin BCG dye [Mass/Vol] 4.3 g/dL 3.5-5.7 [facility] Alkaline phosphatase [Enzyma tic activity/volume] in Serum or PlasmaOrdered By: Kelly Hough on 09-27-2023 ALP [Catalytic activity/Vol] 41 U/L 34-104 [facility] Aspartate aminotransferase [ Enzymatic activity/volume] in Serum or PlasmaOrdered By: Kelly Hough on 09-27-2023 AST [Catalytic activity/Vol] 10 U/L 13-39 [facility] Basophils Auto (Bld) [#/Vol] Ordered By: Kelly Hough on 09-27-2023 Basophils (Bld) [#/Vol] 0.0 10*3/uL 0.0-0.2 [facility] Basophils/100 WBC Auto (Bld) [facility] Basophils/100 WBC (Bld) 0.3 % . [facility] Bilirubin.total [Mass/volume ] in Serum or PlasmaOrdered By: Kelly Hough on 09-27-2023 Bilirubin [Mass/Vol] 0.7 mg/dL 0.3-1.0 [facility] Calcium [Mass/volume] in Ser um or PlasmaOrdered By: Kelly Hough on 09-27-2023 Calcium [Mass/Vol] 9.0 mg/dL 8.6-10.3 [facility] Carbon dioxide, total [Moles /volume] in Serum or PlasmaOrdered By: Kelly Hough on 09-27-2023 CO2 [Moles/Vol] 29.3 mmol/L 21.0-31.0 [facility] Chloride [Moles/volume] in S salas or PlasmaOrdered By: Kelly Hough on 09-27-2023 Chloride [Moles/Vol] 107 mmol/L 98-107 [facility] Complete Blood Count Auto Di ffon 09-27-2023 Basophils (Bld) [#/Vol] 0.0 10*3/uL Normal 0.0-0.2 [facility] Comment on above: Result Comment: PERF ORMED BY: [place] [address] PATHOLOGIST [employer] CLAU ZAVALA M.D. Performed By: #### E SR, TSH3, CRP #### [address] #### CALPROTECT, CELIAC #### [facility] , Basophils/100 WBC (Bld) 0.3 % Normal . [facility] Comment on above: Performed By: #### E SR, TSH3, CRP #### [address] #### CALPROTECT, CELIAC #### [facility] , Eosinophils (Bld) [#/Vol] 0.1 10*3/uL Normal 0.0-0.45 [facility] Comment on above: Performed By: #### E SR, TSH3, CRP #### [facility] [address] [place] [address] [place] #### CALPROTECT, CELIAC #### [facility] , Eosinophils/100 WBC (Bld) 0.8 % Normal . [facility] Comment on above: Performed By: #### E SR, TSH3, CRP #### [facility] [address] [place] [address] #### CALPROTECT, CELIAC #### [facility] , Erythrocyte distribution width (RBC) [Ratio] 13.7 % Normal 11.9-15.3 [facility] Comment on above: Performed By: #### E SR, TSH3, CRP #### [facility] [address] [place] [address] [place] #### CALPROTECT, CELIAC #### [facility] , Hematocrit (Bld) [Volume fraction] 34.8 % Normal 34.0-46.4 [facility] Comment on above: Performed By: #### E SR, TSH3, CRP #### [facility] [address] [place] [address] [place] #### CALPROTECT, CELIAC #### [facility] , Hemoglobin (Bld) [Mass/Vol] 11.0 g/dL Low 11.8-15.4 [facility] Comment on above: Performed By: #### E SR, TSH3, CRP #### [facility] [address] [place] [address] #### CALPROTECT, CELIAC #### [facility] , Lymphocytes (Bld) [#/Vol] 2.1 10*3/uL Normal 1.00-4.8 [facility] Comment on above: Performed By: #### E SR, TSH3, CRP #### [facility] [address] [place] [address] [place] #### CALPROTECT, CELIAC #### [facility] , Lymphocytes/100 WBC (Bld) 24.7 % Normal . [facility] Comment on above: Performed By: #### E SR, TSH3, CRP #### [facility] [address] [place] [address] [place] #### CALPROTECT, CELIAC #### [facility] , MCH (RBC) [Entitic mass] 23.5 pg Low 24.7-34.3 [facility] Comment on above: Performed By: #### E SR, TSH3, CRP #### [facility] [address] [place] [address] [place] #### CALPROTECT, CELIAC #### [facility] , MCV (RBC) [Entitic vol] 74.4 fL Low 80-100 [facility] Comment on above: Performed By: #### E SR, TSH3, CRP #### [facility] [address] [place] [address] [place] #### CALPROTECT, CELIAC #### [facility] , Mean Corpuscular HGB Conc 31.6 g/dL Low 32.0-35.0 [facility] Comment on above: Performed By: #### E SR, TSH3, CRP #### [facility] [address] [place] [address] #### CALPROTECT, CELIAC #### [facility] , Monocytes (Bld) [#/Vol] 0.4 10*3/uL Normal 0.0-0.8 [facility] Comment on above: Performed By: #### E SR, TSH3, CRP #### [facility] [address] [place] [address] #### CALPROTECT, CELIAC #### [facility] , Monocytes/100 WBC (Bld) 5.3 % Normal . [facility] Comment on above: Performed By: #### E SR, TSH3, CRP #### [facility] [address] [place] [address] [place] #### CALPROTECT, CELIAC #### [facility] , Neutrophils (Bld) [#/Vol] 5.8 10*3/uL Normal 1.8-7.7 [facility] Comment on above: Performed By: #### E SR, TSH3, CRP #### [facility] [address] [place] [address] [place] #### CALPROTECT, CELIAC #### [facility] , Neutrophils/100 WBC (Bld) 68.9 % Normal . [facility] Comment on above: Performed By: #### E SR, TSH3, CRP #### [facility] [address] [place] [address] #### CALPROTECT, CELIAC #### [facility] , NRBC% 0.1 /100{WBC} Normal 0-0.5 [facility] Comment on above: Performed By: #### E SR, TSH3, CRP #### [facility] [address] [place] [address] #### CALPROTECT, CELIAC #### [facility] , Platelet mean volume (Bld) [Entitic vol] 9.3 fL Normal 6.3-10.7 [facility] Comment on above: Performed By: #### E SR, TSH3, CRP #### [facility] [address] [place] [address] #### CALPROTECT, CELIAC #### [facility] , Platelets (Bld) [#/Vol] 197 10*3/uL Normal 150-450 [facility] Comment on above: Performed By: #### E SR, TSH3, CRP #### [facility] [address] [place] [address] #### CALPROTECT, CELIAC #### [facility] , RBC (Bld) [#/Vol] 4.68 10*6/uL Normal 3.60-5.00 [facility] Comment on above: Performed By: #### E SR, TSH3, CRP #### [facility] [address] [place] [address] [place] #### CALPROTECT, CELIAC #### [facility] , WBC (Bld) [#/Vol] 8.3 10*3/uL Normal 3.8-11.6 [facility] Comment on above: Performed By: #### E SR, TSH3, CRP #### [facility] [address] [place] [address] [place] #### CALPROTECT, CELIAC #### [facility] , Comprehensive Metabolic Pane tnoe 09-27-2023 Albumin [Mass/Vol] 4.3 g/dL Normal 3.5-5.7 [facility] Comment on above: Performed By: #### E SR, TSH3, CRP #### [facility] [address] [place] [address] [place] #### CALPROTECT, CELIAC #### [facility] , Albumin/Globulin [Mass ratio] 1.7 {ratio} Normal [facility] Comment on above: Performed By: #### E SR, TSH3, CRP #### [facility] [address] [place] [address] #### CALPROTECT, CELIAC #### [facility] , ALP [Catalytic activity/Vol] 41 U/L Normal 34-104 [facility] Comment on above: Performed By: #### E SR, TSH3, CRP #### [facility] [address] [place] [address] [place] #### CALPROTECT, CELIAC #### [facility] , ALT [Catalytic activity/Vol] 9 U/L Normal 7-52 [facility] Comment on above: Performed By: #### E SR, TSH3, CRP #### [facility] [address] [place] [address] [place] #### CALPROTECT, CELIAC #### [facility] , Anion gap [Moles/Vol] 7.1 mmol/L Normal 6.0-15.0 [facility] Comment on above: Performed By: #### E SR, TSH3, CRP #### [facility] [address] [place] [address] [place] #### CALPROTECT, CELIAC #### [facility] , AST [Catalytic activity/Vol] 10 U/L Low 13-39 [facility] Comment on above: Performed By: #### E SR, TSH3, CRP #### [facility] [address] [place] [address] #### CALPROTECT, CELIAC #### [facility] , Bilirubin [Mass/Vol] 0.7 mg/dL Normal 0.3-1.0 [facility] Comment on above: Performed By: #### E SR, TSH3, CRP #### [facility] [address] [place] [address] [place] #### CALPROTECT, CELIAC #### [facility] , Calcium [Mass/Vol] 9.0 mg/dL Normal 8.6-10.3 [facility] Comment on above: Performed By: #### E SR, TSH3, CRP #### [facility] [address] [place] [address] #### CALPROTECT, CELIAC #### [facility] , Chloride [Moles/Vol] 107 mmol/L Normal 98-107 [facility] Comment on above: Performed By: #### E SR, TSH3, CRP #### [facility] [address] [place] [address] [place] #### CALPROTECT, CELIAC #### [facility] , CO2 [Moles/Vol] 29.3 mmol/L Normal 21.0-31.0 [facility] Comment on above: Performed By: #### E SR, TSH3, CRP #### [facility] [address] [place] [address] [place] #### CALPROTECT, CELIAC #### [facility] , Creatinine [Mass/Vol] 0.72 mg/dL Normal 0.60-1.20 [facility] Comment on above: Performed By: #### E SR, TSH3, CRP #### [facility] [address] [place] [address] [place] #### CALPROTECT, CELIAC #### [facility] , Creatinine Clr Calc Pharmacy 105.57 [facility] Comment on above: Performed By: #### E SR, TSH3, CRP #### [facility] [address] [place] [address] [place] #### CALPROTECT, CELIAC #### [facility] , GFR/1.73 sq M.predicted MDRD (S/P/Bld) [Vol rate/Area] mL/min/{1.73_m2} [facility] Comment on above: Performed By: #### E SR, TSH3, CRP #### [place] [address] [place] #### CALPROTECT, CELIAC #### [facility] , Globulin (S) [Mass/Vol] 2.5 g/dL [facility] Comment on above: Performed By: #### E SR, TSH3, CRP #### [facility] [address] [place] [address] [place] #### CALPROTECT, CELIAC #### [facility] , Glucose [Mass/Vol] 113 mg/dL High 70-100 [facility] Comment on above: Result Comment: [place] Glucose Reference Range is dependent on time and content of last meal. Glucose of more than 200 mg/dL in a nonstressed, ambulatory subject supports the diagnosis of Diabetes Mellitus. ADA recommended reference range Performed By: #### E SR, TSH3, CRP #### [facility] [address] [place] [address] [place] #### CALPROTECT, CELIAC #### [facility] , Potassium [Moles/Vol] 3.4 mmol/L Low 3.5-5.1 [facility] Comment on above: Performed By: #### E SR, TSH3, CRP #### [facility] [address] [place] [address] [place] #### CALPROTECT, CELIAC #### [facility] , Protein [Mass/Vol] 6.8 g/dL Normal 6.4-8.9 [facility] Comment on above: Performed By: #### E SR, TSH3, CRP #### [facility] [address] [place] [address] [place] #### CALPROTECT, CELIAC #### [facility] , Sodium [Moles/Vol] 140 mmol/L Normal 136-145 [facility] Comment on above: Performed By: #### E SR, TSH3, CRP #### [facility] [address] [place] [address] [place] #### CALPROTECT, CELIAC #### [facility] , Urea nitrogen [Mass/Vol] 10 mg/dL Normal 7-25 [facility] Comment on above: Performed By: #### E SR, TSH3, CRP #### [facility] [address] [place] [address] [place] #### CALPROTECT, CELIAC #### [facility] , Creatinine [Mass/volume] in Serum or PlasmaOrdered By: Kelly Hough on 09-27-2023 Creatinine [Mass/Vol] 0.72 mg/dL 0.60-1.20 [facility] Eosinophils Auto (Bld) [#/Vo l]Ordered By: Kelly Hough on 09-27-2023 Eosinophils (Bld) [#/Vol] 0.1 10*3/uL 0.0-0.45 [facility] Eosinophils/100 WBC Auto (Bl d)Ordered By: Kelly Hough on 09-27-2023 Eosinophils/100 WBC (Bld) 0.8 % . [facility] Erythrocyte distribution wid th Auto (RBC) [Ratio]Ordered By: Kelly Hough on 09-27-2023 Erythrocyte distribution width (RBC) [Ratio] 13.7 % 11.9-15.3 [facility] Ferritinon 09-27-2023 Ferritin [Mass/Vol] 171.3 ng/mL Normal 11.0-306.8 [facility] Comment on above: Performed By: #### E SR, TSH3, CRP #### [facility] [address] [place] [address] [place] #### CALPROTECT, CELIAC #### [facility] , Ferritin [Mass/volume] in Se rum or PlasmaOrdered By: Kelly France on 09-27-2023 Ferritin [Mass/Vol] 171.3 ng/mL 11.0-306.8 [facility] Folate [Mass/volume] in Seru m or PlasmaOrdered By: Kelly Hough on 09-27-2023 Folate [Mass/Vol] 5.5 ng/mL >5.9 [facility] Comment on above: Folate reference ran ge: >5.9 ng/mlThe WHO technical consultation on folate and vitamin [id number] has determined that folate concentrations lessthan 4 ng/ml are considered deficient. Globulin Calc (S) [Mass/Vol] Ordered By: Kelly Hough on 09-27-2023 Globulin (S) [Mass/Vol] 2.5 g/dL [facility] Glucose [Mass/volume] in Ser um or PlasmaOrdered By: Kelly Hough on 09-27-2023 Glucose [Mass/Vol] 113 mg/dL 70-100 [facility] Comment on above: ADA recommended refe rence rangeRandom Glucose Reference Range is dependent on time and content of last meal. Glucose of more than 200 mg/dL in a nonstressed, ambulatory subject supports the diagnosis of Diabetes Mellitus. HIV 1/O/2 Antigen/Antibodyon 09-27-2023 HIV Screen 4th Generation Non-Reactive Normal Non Reactive [facility] Comment on above: Order Comment: Reaso n for Exam History of IBS;Constipation Result Comment: HIV Negative HIV-1/HIV-2 antibodies and HIV-1 p24 antigen were NOT detected. There is no laboratory evidence of HIV infection. Performed at: - [facility] [id number] Information Security Officer: Alan Macias PhD, Phone: [phone] Performed By: #### E SR, TSH3, CRP #### [facility] [address] [place] [address] [place] #### CALPROTECT, CELIAC #### [facility] , HIV 1 and HIV-2 antibody ass ay with HIV-1 p24 antigen detectionOrdered By: uYdelka Lopez on 09-27-2023 HIV 1+2 Ab+HIV1 p24 Ag IA Ql Non-Reactive Non Reactive [facility] Comment on above: HIV NegativeHIV-1/HI V-2 antibodies and HIV-1 p24 antigen were NOTdetected. There is no laboratory evidence of HIV infection.Performed at: [address] [id number] Director: Alan Macias PhD, Phone: [phone] Hematocrit Auto (Bld) [Volum e fraction]Ordered By: Kelly Hough on 09-27-2023 Hematocrit (Bld) [Volume fraction] 34.8 % 34.0-46.4 [facility] Hemoglobin [Mass/volume] in BloodOrdered By: Kelly Hough on 09-27-2023 Hemoglobin (Bld) [Mass/Vol] 11.0 g/dL 11.8-15.4 [facility] Iron [Mass/volume] in Serum or PlasmaOrdered By: Kelly Hough on 09-27-2023 Iron [Mass/Vol] 59 ug/dL 50-212 [facility] Iron and TIBC Profileon 09-17 % Iron Saturation 25.5 % Normal 20-50 [facility] Comment on above: Performed By: #### E SR, TSH3, CRP #### [facility] [address] [place] [address] [place] #### CALPROTECT, CELIAC #### [facility] , Iron [Mass/Vol] 59 ug/dL Normal 50-212 [facility] Comment on above: Performed By: #### E SR, TSH3, CRP #### [facility] [address] [place] [address] [place] #### CALPROTECT, CELIAC #### [facility] , Total Iron Binding Capacity 231 ug/dL Low 255-450 [facility] Comment on above: Performed By: #### E SR, TSH3, CRP #### [facility] [address] [place] [address] [place] #### CALPROTECT, CELIAC #### [facility] , Transferrin [Mass/Vol] 165 mg/dL Low 203-362 [facility] Comment on above: Performed By: #### E SR, TSH3, CRP #### [facility] [address] #### CALPROTECT, CELIAC #### [facility] , Iron binding capacity [Mass/ volume] in Serum or PlasmaOrdered By: Kelly Hough on 09-27-2023 Iron binding capacity [Mass/Vol] 231 ug/dL 255-450 [facility] Iron saturation [Mass Fracti on] in Serum or PlasmaOrdered By: Kelly Hough on 09-27-2023 Iron saturation [Mass fraction] 25.5 % 20-50 [facility] Leukocytes [#/volume] correc delmer for nucleated erythrocytes in Blood by Automated counOrdered By: Kelly Hough on 09-27-2023 WBC corrected for nucl RBC Auto (Bld) [#/Vol] 8.3 10*3/uL 3.8-11.6 [facility] Lymphocytes Auto (Bld) [#/Vo l]Ordered By: Kelly Hough on 09-27-2023 Lymphocytes (Bld) [#/Vol] 2.1 10*3/uL 1.00-4.8 [facility] Lymphocytes/100 WBC Auto (Bl d)Ordered By: Kelly Hough on 09-27-2023 Lymphocytes/100 WBC (Bld) 24.7 % . [facility] MCH Auto (RBC) [Entitic mass ]Ordered By: Kelly Hough on 09-27-2023 MCH (RBC) [Entitic mass] 23.5 pg 24.7-34.3 [facility] MCHC Auto (RBC) [Mass/Vol]Or dered By: Kelly Hough on 09-27-2023 MCHC (RBC) [Mass/Vol] 31.6 g/dL 32.0-35.0 [facility] MCV Auto (RBC) [Entitic vol] Ordered By: Kelly Hough on 09-27-2023 MCV (RBC) [Entitic vol] 74.4 fL 80-100 [facility] Monocytes Auto (Bld) [#/Vol] Ordered By: Kelly Hough on 09-27-2023 Monocytes (Bld) [#/Vol] 0.4 10*3/uL 0.0-0.8 [facility] Monocytes/100 WBC Auto (Bld) Ordered By: Kelly Hough on 09-27-2023 Monocytes/100 WBC (Bld) 5.3 % . [facility] Neutrophils Auto (Bld) [#/Vo l]Ordered By: Kelly Hough on 09-27-2023 Neutrophils (Bld) [#/Vol] 5.8 10*3/uL 1.8-7.7 [facility] Neutrophils/100 WBC Auto (Bl d)Ordered By: Kelly Hough on 09-27-2023 Neutrophils/100 WBC (Bld) 68.9 % . [facility] No Panel InformationOrdered By: Kelly Hough on 09-27-2023 Estimated GFR (CKD-EPI) > 60.0 mL/Min [facility] Creatinine Clearance (Chem 105.57 [facility] Nucleated erythrocytes [Pres ence] in Blood by Automated countOrdered By: Kelly Hough on 09-27-2023 Nucleated RBC Auto Ql (Bld) 0.1 /100{WBC} 0-0.5 [facility] Platelet mean volume Auto (B ld) [Entitic vol]Ordered By: Kelly Hough on 09-27-2023 Platelet mean volume (Bld) [Entitic vol] 9.3 fL 6.3-10.7 [facility] Platelets Auto (Bld) [#/Vol] Ordered By: Kelly Hough on 09-27-2023 Platelets (Bld) [#/Vol] 197 10*3/uL 150-450 [facility] Potassium [Moles/volume] in Serum or PlasmaOrdered By: Kelly Hough on 09-27-2023 Potassium [Moles/Vol] 3.4 mmol/L 3.5-5.1 [facility] Protein [Mass/volume] in Ser um or PlasmaOrdered By: Kelly Hough on 09-27-2023 Protein [Mass/Vol] 6.8 g/dL 6.4-8.9 [facility] RBC Auto (Bld) [#/Vol]Ordere d By: Kelly Hough on 09-27-2023 RBC (Bld) [#/Vol] 4.68 10*6/uL 3.60-5.00 [facility] RPR w/rfx to Quant TP Abson 09-27-2023 RPR, Rfx Quant RPR Non-Reactive Normal Non Reactive [facility] Comment on above: Order Comment: Reaso n for Exam History of IBS;Constipation Result Comment: Perf ormed at: CB - [facility] [place] [id number] [place] [id number] Information Security Officer: Alan Macias PhD, Phone: [phone] PERFORMED BY: [place] [address] PATHOLOGIST [employer] PROJECT MANAGER CLAU ZAVALA M.D. Performed By: #### E SR, TSH3, CRP #### [address] #### CALPROTECT, CELIAC #### [facility] , Reagin Ab [Presence] in Seru m by RPROrdered By: Yudelka Lopez on 09-27-2023 Reagin Ab RPR Ql (S) Non-Reactive Non Reactive [facility] Comment on above: Performed at: - [facility] [place] [id number] Director: Alan Macias PhD, Phone: [phone] Serum or plasma albumin/glob ulin mass ratioOrdered By: Kelly Hough on 09-27-2023 Albumin/Globulin [Mass ratio] 1.7 {ratio} [facility] Serum or plasma anion gap de terminationOrdered By: Kelly Hough on 09-27-2023 Anion gap [Moles/Vol] 7.1 mmol/L 6.0-15.0 [facility] Sodium [Moles/volume] in Ser um or PlasmaOrdered By: Kelly Hough on 09-27-2023 Sodium [Moles/Vol] 140 mmol/L 136-145 [facility] Transferrin [Mass/volume] in Serum or PlasmaOrdered By: Kelly Hough on 09-27-2023 Transferrin [Mass/Vol] 165 mg/dL 203-362 [facility] Urea nitrogen [Mass/volume] in Serum or PlasmaOrdered By: Kelly France on 09-27-2023 Urea nitrogen [Mass/Vol] 10 mg/dL 7-25 [facility] Vit. B12/Folate Profileon Cobalamin (Vitamin B12) [Mass/Vol] 446 pg/mL Normal 180-914 [facility] Comment on above: Performed By: #### E SR, TSH3, CRP #### [facility] [address] [place] [address] #### CALPROTECT, CELIAC #### [facility] , Folate 5.5 ng/mL Low >5.9 [facility] Comment on above: Result Comment: Breana te reference range: >5.9 ng/ml The WHO technical consultation on folate and vitamin b12 deficiencies has determined that folate concentrations less than 4 ng/ml are considered deficient. PERFORMED BY: [place] [address] PATHOLOGIST [employer] PROJECT MANAGER CLAU ZAVALA M.D. Performed By: #### E SR, TSH3, CRP #### [facility] [address] [place] [address] #### CALPROTECT, CELIAC #### [facility] , Vitamin B12 ser/plasOrdered By: Kelly Hough on 09-27-2023 Cobalamin (Vitamin B12) [Mass/Vol] 446 pg/mL 180-914 [facility] WBC Auto (Bld) [#/Vol]Ordere d By: Kelly Hough on 09-27-2023 WBC (Bld) [#/Vol] 8.3 10*3/uL 3.8-11.6 [facility] Absolute reticulocyte countO rdered By: Kelly Hough on 06-27-2023 Reticulocytes (Bld) [#/Vol] 0.066 10*6/uL 0.024-0.08 4 [facility] Copperon 06-27-2023 Copper 145 ug/dL Normal 80-158 [facility] Comment on above: Result Comment: This test was developed and its performance characteristics determined by [facility]. It has not been cleared or approved by the Food and Drug Administration. Detection Limit = 5 Performed at: [facility] [address] [id number] Information Security Officer: Artemio Guillen MD, Phone: [phone] PERFORMED BY: [place] [address] PATHOLOGIST [employer] PROJECT MANAGER CLAU ZAVALA M.D. Performed By: #### L IPASE, HEPATIC, CBC, PT, BMP, PTT #### [facility] [address] [place] [id number] [facility] Direct [place] 06-27-2023 Polyspecific AHG Negative Normal [facility] Comment on above: Result Comment: PERF ORMED BY: [address] [id number] PATHOLOGIST [employer] PROJECT MANAGER CLAU ZAVALA M.D. Haptoglobinon 06-27-2023 Haptoglobin 184 mg/dL Normal 44-215 [facility] Comment on above: Result Comment: PERF ORMED BY: [place] [address] PATHOLOGIST [employer] PROJECT MANAGER CLAU ZAVALA M.D. Performed By: #### L IPASE, HEPATIC, CBC, PT, BMP, PTT #### [facility] [address] [place] [address] [place] Haptoglobin [Mass/volume] in Serum or PlasmaOrdered By: Kelly Hough on 06-27-2023 Haptoglobin [Mass/Vol] 184 mg/dL 44-215 [facility] LDH Lactate Dehydrogenaseon 06-27-2023 LDH Lactate Dehydrogenase 137 U/L Low 140-271 [facility] Comment on above: Performed By: #### L IPASE, HEPATIC, CBC, PT, BMP, PTT #### [facility] [address] [place] [address] [place] Lactate dehydrogenase [Enzym atic activity/volume] in Serum or Plasma by Lactate to pyOrdered By: Kelly Hough on 06-27-2023 LDH Lactate to pyruvate reaction [Catalytic activity/Vol] 137 U/L 140-271 [facility] Monocyte %Ordered By: Kelly amaya on 06-27-2023 Monocyte % 145 ug/dL 80-158 [facility] Comment on above: This test was develo ped and its performance characteristicsdetermined by [facility]. It has not been cleared orapproved by the Food and Drug Administration. Detection Limit = 5Performed at: [address] [id number] Director: Artemio Guillen MD, Phone: [phone] Reticulocyte Counton 023 Reticulocyte Number 0.066 10*6/uL Normal 0.024-0 .08 4 [facility] Comment on above: Result Comment: PERF ORMED BY: [address] [address] PATHOLOGIST [employer] PROJECT MANAGER CLAU ZAVALA M.D. Performed By: #### L IPASE, HEPATIC, CBC, PT, BMP, PTT #### [facility] [address] [place], [place] [id number] [place] Reticulocyte Percent 1.4 % Normal 0.5-1.5 [facility] Comment on above: Performed By: #### L IPASE, HEPATIC, CBC, PT, BMP, PTT #### [facility] [address] [place], [place] [address] [place] Reticulocytes/100 RBC Auto ( Bld)Ordered By: Kelly Hough on 06-27-2023 Reticulocytes/100 RBC (Bld) 1.4 % 0.5-1.5 [facility] Vitamin B12on 06-27-2023 Cobalamin (Vitamin B12) [Mass/Vol] 197 pg/mL Normal 180-914 [facility] Comment on above: Result Comment: PERF ORMED BY: [facility] [address] [place] [id number] PATHOLOGIST [employer] PROJECT MANAGER CLAU ZAVALA M.D. Performed By: #### L IPASE, HEPATIC, CBC, PT, BMP, PTT #### [facility] [address] [place] [id number] [facility] Alanine aminotransferase [En zymatic activity/volume] in Serum or PlasmaOrdered By: Kelly Hough on 06-14-2023 ALT [Catalytic activity/Vol] 13 U/L 7-52 [facility] Albumin [Mass/volume] in Ser um or Plasma by Bromocresol green (BCG) dye binding methoOrdered By: Kelly Hough on 06-14-2023 Albumin BCG dye [Mass/Vol] 3.8 g/dL 3.5-5.7 [facility] Alkaline phosphatase [Enzyma tic activity/volume] in Serum or PlasmaOrdered By: Kelly Hough on 06-14-2023 ALP [Catalytic activity/Vol] 33 U/L 34-104 [facility] Aspartate aminotransferase [ Enzymatic activity/volume] in Serum or PlasmaOrdered By: Kelly Hough on 06-14-2023 AST [Catalytic activity/Vol] 10 U/L 13-39 [facility] Basophils Auto (Bld) [#/Vol] Ordered By: Kelly Hough on 06-14-2023 Basophils (Bld) [#/Vol] 0.0 10*3/uL 0.0-0.2 [facility] Basophils/100 WBC Auto (Bld) Ordered By: Kelly Hough on 06-14-2023 Basophils/100 WBC (Bld) 0.4 % . [facility] Bilirubin.total [Mass/volume ] in Serum or PlasmaOrdered By: Kelly Hough on 06-14-2023 Bilirubin [Mass/Vol] 0.4 mg/dL 0.3-1.0 [facility] Calcium [Mass/volume] in Ser um or PlasmaOrdered By: Kelly Hough on 06-14-2023 Calcium [Mass/Vol] 8.8 mg/dL 8.6-10.3 [facility] Carbon dioxide, total [Moles /volume] in Serum or PlasmaOrdered By: Kelly Hough on 06-14-2023 CO2 [Moles/Vol] 28.5 mmol/L 21.0-31.0 [facility] Chloride [Moles/volume] in S salas or PlasmaOrdered By: Kelly Hough on 09-28-2023 Chloride [Moles/Vol] 104 mmol/L 98-107 [facility] Complete Blood Count Auto Di ffon 06-14-2023 Basophils (Bld) [#/Vol] 0.0 10*3/uL Normal 0.0-0.2 [facility] Comment on above: Result Comment: PERF ORMED BY: [place] [address] PATHOLOGIST [employer] PROJECT MANAGER CLAU ZAVALA M.D. Performed By: #### L IPASE, HEPATIC, CBC, PT, BMP, PTT #### [facility] [address] Basophils/100 WBC (Bld) 0.4 % Normal . [facility] Comment on above: Performed By: #### L IPASE, HEPATIC, CBC, PT, BMP, PTT #### [address] Eosinophils (Bld) [#/Vol] 0.2 10*3/uL Normal 0.0-0.45 [facility] Comment on above: Performed By: #### L IPASE, HEPATIC, CBC, PT, BMP, PTT #### [address] Eosinophils/100 WBC (Bld) 1.9 % Normal . [facility] Comment on above: Performed By: #### L IPASE, HEPATIC, CBC, PT, BMP, PTT #### [facility] [address] [place] [address] Erythrocyte distribution width (RBC) [Ratio] 13.9 % Normal 11.9-15.3 [facility] Comment on above: Performed By: #### L IPASE, HEPATIC, CBC, PT, BMP, PTT #### [facility] [address] [place] [address] Hematocrit (Bld) [Volume fraction] 32.4 % Low 34.0-46.4 [facility] Comment on above: Performed By: #### L IPASE, HEPATIC, CBC, PT, BMP, PTT #### [facility] [address] [place] [address] [place] Hemoglobin (Bld) [Mass/Vol] 10.3 g/dL Low 11.8-15.4 [facility] Comment on above: Performed By: #### L IPASE, HEPATIC, CBC, PT, BMP, PTT #### [address] Lymphocytes (Bld) [#/Vol] 2.6 10*3/uL Normal 1.00-4.8 [facility] Comment on above: Performed By: #### L IPASE, HEPATIC, CBC, PT, BMP, PTT #### [address] Lymphocytes/100 WBC (Bld) 31.3 % Normal . [facility] Comment on above: Performed By: #### L IPASE, HEPATIC, CBC, PT, BMP, PTT #### [address] MCH (RBC) [Entitic mass] 23.8 pg Low 24.7-34.3 [facility] Comment on above: Performed By: #### L IPASE, HEPATIC, CBC, PT, BMP, PTT #### [address] MCV (RBC) [Entitic vol] 75.2 fL Low 80-100 [facility] Comment on above: Performed By: #### L IPASE, HEPATIC, CBC, PT, BMP, PTT #### [address] Mean Corpuscular HGB Conc 31.7 g/dL Low 32.0-35.0 [facility] Comment on above: Performed By: #### L IPASE, HEPATIC, CBC, PT, BMP, PTT #### [place] [address] [place] Monocytes (Bld) [#/Vol] 0.5 10*3/uL Normal 0.0-0.8 [facility] Comment on above: Performed By: #### L IPASE, HEPATIC, CBC, PT, BMP, PTT #### [place] [address] [place] Monocytes/100 WBC (Bld) 5.9 % Normal . [facility] Comment on above: Performed By: #### L IPASE, HEPATIC, CBC, PT, BMP, PTT #### [address] Neutrophils (Bld) [#/Vol] 5.1 10*3/uL Normal 1.8-7.7 [facility] Comment on above: Performed By: #### L IPASE, HEPATIC, CBC, PT, BMP, PTT #### [address] Neutrophils/100 WBC (Bld) 60.5 % Normal . [facility] Comment on above: Performed By: #### L IPASE, HEPATIC, CBC, PT, BMP, PTT #### [address] NRBC% 0.1 /100{WBC} Normal 0-0.5 [facility] Comment on above: Performed By: #### L IPASE, HEPATIC, CBC, PT, BMP, PTT #### [address] Platelet mean volume (Bld) [Entitic vol] 9.6 fL Normal 6.3-10.7 [facility] Comment on above: Performed By: #### L IPASE, HEPATIC, CBC, PT, BMP, PTT #### [place] [address] [place] Platelets (Bld) [#/Vol] 189 10*3/uL Normal 150-450 [facility] Comment on above: Performed By: #### L IPASE, HEPATIC, CBC, PT, BMP, PTT #### [place] [address] [place] RBC (Bld) [#/Vol] 4.31 10*6/uL Normal 3.60-5.00 [facility] Comment on above: Performed By: #### L IPASE, HEPATIC, CBC, PT, BMP, PTT #### [place] [address] [place] WBC (Bld) [#/Vol] 8.4 10*3/uL Normal 3.8-11.6 [facility] Comment on above: Performed By: #### L IPASE, HEPATIC, CBC, PT, BMP, PTT #### [facility] [address] [place] [address] Comprehensive Metabolic Pane tone 06-14-2023 Albumin [Mass/Vol] 3.8 g/dL Normal 3.5-5.7 [facility] Comment on above: Performed By: #### L IPASE, HEPATIC, CBC, PT, BMP, PTT #### [address] Albumin/Globulin [Mass ratio] 1.9 {ratio} Normal [facility] Comment on above: Performed By: #### L IPASE, HEPATIC, CBC, PT, BMP, PTT #### [address] ALP [Catalytic activity/Vol] 33 U/L Low 34-104 [facility] Comment on above: Performed By: #### L IPASE, HEPATIC, CBC, PT, BMP, PTT #### [address] ALT [Catalytic activity/Vol] 13 U/L Normal 7-52 [facility] Comment on above: Performed By: #### L IPASE, HEPATIC, CBC, PT, BMP, PTT #### [address] Anion gap [Moles/Vol] 10.6 mmol/L Normal 6.0-15.0 [facility] Comment on above: Performed By: #### L IPASE, HEPATIC, CBC, PT, BMP, PTT #### [address] AST [Catalytic activity/Vol] 10 U/L Low 13-39 [facility] Comment on above: Performed By: #### L IPASE, HEPATIC, CBC, PT, BMP, PTT #### [address] Bilirubin [Mass/Vol] 0.4 mg/dL Normal 0.3-1.0 [facility] Comment on above: Performed By: #### L IPASE, HEPATIC, CBC, PT, BMP, PTT #### [facility] [address] Calcium [Mass/Vol] 8.8 mg/dL Normal 8.6-10.3 [facility] Comment on above: Performed By: #### L IPASE, HEPATIC, CBC, PT, BMP, PTT #### [facility] [address] Chloride [Moles/Vol] 104 mmol/L Normal 98-107 [facility] Comment on above: Performed By: #### L IPASE, HEPATIC, CBC, PT, BMP, PTT #### [facility] [address] CO2 [Moles/Vol] 28.5 mmol/L Normal 21.0-31.0 [facility] Comment on above: Performed By: #### L IPASE, HEPATIC, CBC, PT, BMP, PTT #### [address] Creatinine [Mass/Vol] 0.82 mg/dL Normal 0.60-1.20 [facility] Comment on above: Performed By: #### L IPASE, HEPATIC, CBC, PT, BMP, PTT #### [address] Creatinine Clr Calc Pharmacy 93.10 [facility] Comment on above: Performed By: #### L IPASE, HEPATIC, CBC, PT, BMP, PTT #### [place] [address] [place] GFR/1.73 sq M.predicted MDRD (S/P/Bld) [Vol rate/Area] mL/min/{1.73_m2} [facility] Comment on above: Performed By: #### L IPASE, HEPATIC, CBC, PT, BMP, PTT #### [address] Globulin (S) [Mass/Vol] 2.0 g/dL [facility] Comment on above: Performed By: #### L IPASE, HEPATIC, CBC, PT, BMP, PTT #### [facility] [address] Glucose [Mass/Vol] 86 mg/dL Normal 70-100 [facility] Comment on above: Result Comment: [facility] Glucose Reference Range is dependent on time and content of last meal. Glucose of more than 200 mg/dL in a nonstressed, ambulatory subject supports the diagnosis of Diabetes Mellitus. ADA recommended reference range Performed By: #### L IPASE, HEPATIC, CBC, PT, BMP, PTT #### [facility] [address] Potassium [Moles/Vol] 4.1 mmol/L Normal 3.5-5.1 [facility] Comment on above: Performed By: #### L IPASE, HEPATIC, CBC, PT, BMP, PTT #### [facility] [address] Protein [Mass/Vol] 5.8 g/dL Low 6.4-8.9 [facility] Comment on above: Performed By: #### L IPASE, HEPATIC, CBC, PT, BMP, PTT #### [facility] [address] Sodium [Moles/Vol] 139 mmol/L Normal 136-145 [facility] Comment on above: Performed By: #### L IPASE, HEPATIC, CBC, PT, BMP, PTT #### [place] [address] [place] Urea nitrogen [Mass/Vol] 11 mg/dL Normal 7-25 [facility] Comment on above: Performed By: #### L IPASE, HEPATIC, CBC, PT, BMP, PTT #### [place] [address] [place] Creatinine [Mass/volume] in Serum or PlasmaOrdered By: Kelly Hough on 06-14-2023 Creatinine [Mass/Vol] 0.82 mg/dL 0.60-1.20 [facility] Eosinophils Auto (Bld) [#/Vo l]Ordered By: Kelly Hough on 06-14-2023 Eosinophils (Bld) [#/Vol] 0.2 10*3/uL 0.0-0.45 [facility] Eosinophils/100 WBC Auto (Bl d)Ordered By: Kelly Hough on 06-14-2023 Eosinophils/100 WBC (Bld) 1.9 % . [facility] Erythrocyte distribution wid th Auto (RBC) [Ratio]Ordered By: Kelly Hough on 06-14-2023 Erythrocyte distribution width (RBC) [Ratio] 13.9 % 11.9-15.3 [facility] Ferritinon 06-14-2023 Ferritin [Mass/Vol] 146.0 ng/mL Normal 11.0-306.8 [facility] Comment on above: Result Comment: PERF ORMED BY: [place] [address] PATHOLOGIST [employer] CLAU ZAVALA M.D. Performed By: #### L IPASE, HEPATIC, CBC, PT, BMP, PTT #### [facility] [address] [place] [address] Ferritin [Mass/volume] in Se rum or PlasmaOrdered By: Kelly Hough on 06-14-2023 Ferritin [Mass/Vol] 146.0 ng/mL 11.0-306.8 [facility] Free T4 (Free Thyroxine)on 0 06-14-2023 Free T4 [Mass/Vol] 1.22 ng/dL High 0.61-1.12 [facility] Comment on above: Performed By: #### E SR, TSH3, CRP #### [facility] [address] [place] [address] #### CALPROTECT, CELIAC #### [facility] , Globulin Calc (S) [Mass/Vol] Ordered By: Kelly Hough on 06-14-2023 Globulin (S) [Mass/Vol] 2.0 g/dL [facility] Glucose [Mass/volume] in Ser um or PlasmaOrdered By: Kelly Ricocristel on 06-14-2023 Glucose [Mass/Vol] 86 mg/dL 70-100 [facility] Comment on above: ADA recommended refe rence rangeRandom Glucose Reference Range is dependent on time and content of last meal. Glucose of more than 200 mg/dL in a nonstressed, ambulatory subject supports the diagnosis of Diabetes Mellitus. Hematocrit Auto (Bld) [Volum e fraction]Ordered By: Kelly Hough on 06-14-2023 Hematocrit (Bld) [Volume fraction] 32.4 % 34.0-46.4 [facility] Hemoglobin [Mass/volume] in BloodOrdered By: Kelly Hough on 06-14-2023 Hemoglobin (Bld) [Mass/Vol] 10.3 g/dL 11.8-15.4 [facility] Iron [Mass/volume] in Serum or PlasmaOrdered By: Kelly Hough on 06-14-2023 Iron [Mass/Vol] 62 ug/dL 50-212 [facility] Iron and TIBC Profileon 05-19 % Iron Saturation 32.6 % Normal 20-50 [facility] Comment on above: Performed By: #### L IPASE, HEPATIC, CBC, PT, BMP, PTT #### [facility] [address] [place] [id number] [place] Iron [Mass/Vol] 62 ug/dL Normal 50-212 [facility] Comment on above: Performed By: #### L IPASE, HEPATIC, CBC, PT, BMP, PTT #### [facility] [address] [place] [address] [place] Total Iron Binding Capacity 190 ug/dL Low 255-450 [facility] Comment on above: Performed By: #### L IPASE, HEPATIC, CBC, PT, BMP, PTT #### [facility] [address] [place] [address] [place] Transferrin [Mass/Vol] 136 mg/dL Low 203-362 [facility] Comment on above: Performed By: #### L IPASE, HEPATIC, CBC, PT, BMP, PTT #### [facility] [address] [place] [address] [place] Iron binding capacity [Mass/ volume] in Serum or PlasmaOrdered By: Kelly Hough on 06-14-2023 Iron binding capacity [Mass/Vol] 190 ug/dL 255-450 [facility] Iron saturation [Mass Fracti on] in Serum or PlasmaOrdered By: Kelly Hough on 06-14-2023 Iron saturation [Mass fraction] 32.6 % 20-50 [facility] Leukocytes [#/volume] correc delmer for nucleated erythrocytes in Blood by Automated counOrdered By: Kelly Hough on 06-14-2023 WBC corrected for nucl RBC Auto (Bld) [#/Vol] 8.4 10*3/uL 3.8-11.6 [facility] Lymphocytes Auto (Bld) [#/Vo l]Ordered By: Kelly Hough on 06-14-2023 Lymphocytes (Bld) [#/Vol] 2.6 10*3/uL 1.00-4.8 [facility] Lymphocytes/100 WBC Auto (Bl d)Ordered By: Kelly Hough on 06-14-2023 Lymphocytes/100 WBC (Bld) 31.3 % . [facility] MCH Auto (RBC) [Entitic mass ]Ordered By: Kelly Hough on 06-14-2023 MCH (RBC) [Entitic mass] 23.8 pg 24.7-34.3 [facility] MCHC Auto (RBC) [Mass/Vol]Or dered By: Kelly Hough on 06-14-2023 MCHC (RBC) [Mass/Vol] 31.7 g/dL 32.0-35.0 [facility] MCV Auto (RBC) [Entitic vol] Ordered By: Kelly Hough on 06-14-2023 MCV (RBC) [Entitic vol] 75.2 fL 80-100 [facility] Monocytes Auto (Bld) [#/Vol] Ordered By: Kelly Hough on 06-14-2023 Monocytes (Bld) [#/Vol] 0.5 10*3/uL 0.0-0.8 [facility] Monocytes/100 WBC Auto (Bld) Ordered By: Kelly Hough on 06-14-2023 Monocytes/100 WBC (Bld) 5.9 % . [facility] Neutrophils Auto (Bld) [#/Vo l]Ordered By: Kelly Hough on 06-14-2023 Neutrophils (Bld) [#/Vol] 5.1 10*3/uL 1.8-7.7 [facility] Neutrophils/100 WBC Auto (Bl d)Ordered By: Kelly Hough on 06-14-2023 Neutrophils/100 WBC (Bld) 60.5 % . [facility] No Panel InformationOrdered By: Kelly Hough on 06-14-2023 Estimated GFR (CKD-EPI) > 60.0 mL/Min [facility] Creatinine Clearance (Chem 93.10 [facility] Nucleated erythrocytes [Pres ence] in Blood by Automated countOrdered By: Kelly Hough on 06-14-2023 Nucleated RBC Auto Ql (Bld) 0.1 /100{WBC} 0-0.5 [facility] Platelet mean volume Auto (B ld) [Entitic vol]Ordered By: Kelly Hough on 06-14-2023 Platelet mean volume (Bld) [Entitic vol] 9.6 fL 6.3-10.7 [facility] Platelets Auto (Bld) [#/Vol] Ordered By: Kelly Hough on 06-14-2023 Platelets (Bld) [#/Vol] 189 10*3/uL 150-450 [facility] Potassium [Moles/volume] in Serum or PlasmaOrdered By: Kelly Hough on 06-14-2023 Potassium [Moles/Vol] 4.1 mmol/L 3.5-5.1 [facility] Protein [Mass/volume] in Ser um or PlasmaOrdered By: Kelly Hough on 06-14-2023 Protein [Mass/Vol] 5.8 g/dL 6.4-8.9 [facility] RBC Auto (Bld) [#/Vol]Ordere d By: Kelly Hough on 06-14-2023 RBC (Bld) [#/Vol] 4.31 10*6/uL 3.60-5.00 [facility] Serum or plasma albumin/glob ulin mass ratioOrdered By: Kelly Hough on 06-14-2023 Albumin/Globulin [Mass ratio] 1.9 {ratio} [facility] Serum or plasma anion gap de terminationOrdered By: Kelly Hough on 06-14-2023 Anion gap [Moles/Vol] 10.6 mmol/L 6.0-15.0 [facility] Sodium [Moles/volume] in Ser um or PlasmaOrdered By: Kelly Ryannemesio on 06-14-2023 Sodium [Moles/Vol] 139 mmol/L 136-145 [facility] Thyroid Stimulating Hormoneo n 06-14-2023 TSH Qn 1.43 m[IU]/L Normal 0.45-5.33 [facility] Comment on above: Result Comment: PERF ORMED BY: [place] [address] PATHOLOGIST [employer]NAGER CLAU ZAVALA M.D. Performed By: #### E SR, TSH3, CRP #### [facility] [address] [place] [address] #### CALPROTECT, CELIAC #### [facility] , Thyrotropin [Units/volume] i n Serum or PlasmaOrdered By: Dayne Horton on 06-14-2023 TSH Qn 1.43 m[IU]/L 0.45-5.33 [facility] Thyroxine (T4) free [Mass/vo lume] in Serum or PlasmaOrdered By: Dayne Horton on 06-14-2023 Free T4 [Mass/Vol] 1.22 ng/dL 0.61-1.12 [facility] Transferrin [Mass/volume] in Serum or PlasmaOrdered By: Kelly France on 06-14-2023 Transferrin [Mass/Vol] 136 mg/dL 203-362 [facility] Triiodothyronine (T3) Freeon 06-14-2023 Triiodothyronine (T3) Free 3.99 pg/mL High 2.50-3.90 [facility] Comment on above: Result Comment: PERF ORMED BY: [place] [address] PATHOLOGIST [employer] MANAGER CLAU ZAVALA M.D. Performed By: #### E SR, TSH3, CRP #### [facility] [address] [place] [address] [place] #### CALPROTECT, CELIAC #### [facility] , Triiodothyronine (T3) Free [ Mass/volume] in Serum or PlasmaOrdered By: Dayne Hotron on 06-14-2023 Free T3 [Mass/Vol] 3.99 pg/mL 2.50-3.90 [facility] Urea nitrogen [Mass/volume] in Serum or PlasmaOrdered By: Kelly Hough on 06-14-2023 Urea nitrogen [Mass/Vol] 11 mg/dL 7 [facility] WBC Auto (Bld) [#/Vol]Ordere d By: Kelly Hough on 06-14-2023 WBC (Bld) [#/Vol] 8.4 10*3/uL 3.8-11.6 [facility] Provider Letteron 04-09-2023 Provider Letter (Inserted Image. Radha ble to display) April 09, 2023 LEANDRA FONSECA [address] [place] [phone] : 1990 Dear Leandra , We have been trying to reach you with no success. It is important that you return our call regarding your referral from Kelvin Hough_ upon receiving this letter. Also, at the time of your call, please provide us with your current information. Thank you for your prompt attention to this matter. Sincerely, General [facility] [phone] Normal [facility] Lab Reportson 04-04-2023 Lab Reports [id number]#[id number]:127 Normal [facility] Physician Referralon 023 Physician Referral [id number]:127 Normal [facility] Albumin [Mass/volume] in Ser um or PlasmaOrdered By: Kelly Hough on 03-21-2023 Albumin [Mass/Vol] 3.6 g/dL 2.9-4.4 [facility] Complete Blood Count Auto Di ffon 03-21-2023 Basophils (Bld) [#/Vol] 0.0 10*3/uL Normal 0.0-0.2 [facility] Comment on above: Result Comment: PERF ORMED BY: [place] [address] PATHOLOGIST [employer] MANAGER CLAU ZAVALA M.D. Performed By: #### L IPASE, HEPATIC, CBC, PT, BMP, PTT #### [address] Basophils/100 WBC (Bld) 0.5 % Normal . [facility] Comment on above: Performed By: #### L IPASE, HEPATIC, CBC, PT, BMP, PTT #### [address] Eosinophils (Bld) [#/Vol] 0.1 10*3/uL Normal 0.0-0.45 [facility] Comment on above: Performed By: #### L IPASE, HEPATIC, CBC, PT, BMP, PTT #### [address] Eosinophils/100 WBC (Bld) 0.9 % Normal . [facility] Comment on above: Performed By: #### L IPASE, HEPATIC, CBC, PT, BMP, PTT #### [address] Erythrocyte distribution width (RBC) [Ratio] 14.5 % Normal 11.9-15.3 [facility] Comment on above: Performed By: #### L IPASE, HEPATIC, CBC, PT, BMP, PTT #### [address] Hematocrit (Bld) [Volume fraction] 34.6 % Normal 34.0-46.4 [facility] Comment on above: Performed By: #### L IPASE, HEPATIC, CBC, PT, BMP, PTT #### [address] Hemoglobin (Bld) [Mass/Vol] 10.8 g/dL Low 11.8-15.4 [facility] Comment on above: Performed By: #### L IPASE, HEPATIC, CBC, PT, BMP, PTT #### [address] Lymphocytes (Bld) [#/Vol] 1.9 10*3/uL Normal 1.00-4.8 [facility] Comment on above: Performed By: #### L IPASE, HEPATIC, CBC, PT, BMP, PTT #### [address] Lymphocytes/100 WBC (Bld) 25.5 % Normal . [facility] Comment on above: Performed By: #### L IPASE, HEPATIC, CBC, PT, BMP, PTT #### [address] MCH (RBC) [Entitic mass] 22.9 pg Low 24.7-34.3 [facility] Comment on above: Performed By: #### L IPASE, HEPATIC, CBC, PT, BMP, PTT #### [address] MCV (RBC) [Entitic vol] 73.1 fL Low 80-100 [facility] Comment on above: Performed By: #### L IPASE, HEPATIC, CBC, PT, BMP, PTT #### [address] Mean Corpuscular HGB Conc 31.3 g/dL Low 32.0-35.0 [facility] Comment on above: Performed By: #### L IPASE, HEPATIC, CBC, PT, BMP, PTT #### [address] Monocytes (Bld) [#/Vol] 0.4 10*3/uL Normal 0.0-0.8 [facility] Comment on above: Performed By: #### L IPASE, HEPATIC, CBC, PT, BMP, PTT #### [address] Monocytes/100 WBC (Bld) 5.2 % Normal . [facility] Comment on above: Performed By: #### L IPASE, HEPATIC, CBC, PT, BMP, PTT #### [place] [address] [place] Neutrophils (Bld) [#/Vol] 5.1 10*3/uL Normal 1.8-7.7 [facility] Comment on above: Performed By: #### L IPASE, HEPATIC, CBC, PT, BMP, PTT #### [facility] [address] Neutrophils/100 WBC (Bld) 67.9 % Normal . [facility] Comment on above: Performed By: #### L IPASE, HEPATIC, CBC, PT, BMP, PTT #### [address] NRBC% 0.1 /100{WBC} Normal 0-0.5 [facility] Comment on above: Performed By: #### L IPASE, HEPATIC, CBC, PT, BMP, PTT #### [address] Platelet mean volume (Bld) [Entitic vol] 8.8 fL Normal 6.3-10.7 [facility] Comment on above: Performed By: #### L IPASE, HEPATIC, CBC, PT, BMP, PTT #### [address] Platelets (Bld) [#/Vol] 283 10*3/uL Normal 150-450 [facility] Comment on above: Performed By: #### L IPASE, HEPATIC, CBC, PT, BMP, PTT #### [address] RBC (Bld) [#/Vol] 4.73 10*6/uL Normal 3.60-5.00 [facility] Comment on above: Performed By: #### L IPASE, HEPATIC, CBC, PT, BMP, PTT #### [address] WBC (Bld) [#/Vol] 7.5 10*3/uL Normal 3.8-11.6 [facility] Comment on above: Performed By: #### L IPASE, HEPATIC, CBC, PT, BMP, PTT #### [address] [place] [address] [place] Comprehensive Metabolic Pane tone 03-21-2023 Albumin [Mass/Vol] 4.2 g/dL Normal 3.5-5.7 [facility] Comment on above: Performed By: #### L IPASE, HEPATIC, CBC, PT, BMP, PTT #### [facility] [address] Albumin/Globulin [Mass ratio] 1.7 {ratio} Normal [facility] Comment on above: Performed By: #### L IPASE, HEPATIC, CBC, PT, BMP, PTT #### [address] ALP [Catalytic activity/Vol] 38 U/L Normal 34-104 [facility] Comment on above: Performed By: #### L IPASE, HEPATIC, CBC, PT, BMP, PTT #### [address] ALT [Catalytic activity/Vol] 9 U/L Normal 7-52 [facility] Comment on above: Performed By: #### L IPASE, HEPATIC, CBC, PT, BMP, PTT #### [address] Anion gap [Moles/Vol] 10.0 mmol/L Normal 6.0-15.0 [facility] Comment on above: Performed By: #### L IPASE, HEPATIC, CBC, PT, BMP, PTT #### [address] AST [Catalytic activity/Vol] 11 U/L Low 13-39 [facility] Comment on above: Performed By: #### L IPASE, HEPATIC, CBC, PT, BMP, PTT #### [place] [address] [place] Bilirubin [Mass/Vol] 0.4 mg/dL Normal 0.3-1.0 [facility] Comment on above: Performed By: #### L IPASE, HEPATIC, CBC, PT, BMP, PTT #### [place] [address] [place] Calcium [Mass/Vol] 9.1 mg/dL Normal 8.6-10.3 [facility] Comment on above: Performed By: #### L IPASE, HEPATIC, CBC, PT, BMP, PTT #### [facility] [address] Chloride [Moles/Vol] 104 mmol/L Normal 98-107 [facility] Comment on above: Performed By: #### L IPASE, HEPATIC, CBC, PT, BMP, PTT #### [facility] [address] CO2 [Moles/Vol] 26.6 mmol/L Normal 21.0-31.0 [facility] Comment on above: Performed By: #### L IPASE, HEPATIC, CBC, PT, BMP, PTT #### [facility] [address] Creatinine [Mass/Vol] 0.74 mg/dL Normal 0.60-1.20 [facility] Comment on above: Performed By: #### L IPASE, HEPATIC, CBC, PT, BMP, PTT #### [facility] [address] [place] [address] [place] Creatinine Clr Calc Pharmacy 104.11 [facility] Comment on above: Performed By: #### L IPASE, HEPATIC, CBC, PT, BMP, PTT #### [place] [address] [place] GFR/1.73 sq M.predicted MDRD (S/P/Bld) [Vol rate/Area] mL/min/{1.73_m2} [facility] Comment on above: Performed By: #### L IPASE, HEPATIC, CBC, PT, BMP, PTT #### [facility] [address] [place] [address] [place] Globulin (S) [Mass/Vol] 2.5 g/dL [facility] Comment on above: Performed By: #### L IPASE, HEPATIC, CBC, PT, BMP, PTT #### [facility] [address] [place] [address] [place] Glucose [Mass/Vol] 84 mg/dL Normal 70-100 [facility] Comment on above: Result Comment: [place] Glucose Reference Range is dependent on time and content of last meal. Glucose of more than 200 mg/dL in a nonstressed, ambulatory subject supports the diagnosis of Diabetes Mellitus. ADA recommended reference range Performed By: #### L IPASE, HEPATIC, CBC, PT, BMP, PTT #### [address] Potassium [Moles/Vol] 3.6 mmol/L Normal 3.5-5.1 [facility] Comment on above: Performed By: #### L IPASE, HEPATIC, CBC, PT, BMP, PTT #### [address] Protein [Mass/Vol] 6.7 g/dL Normal 6.4-8.9 [facility] Comment on above: Performed By: #### L IPASE, HEPATIC, CBC, PT, BMP, PTT #### [address] Sodium [Moles/Vol] 137 mmol/L Normal 136-145 [facility] Comment on above: Performed By: #### L IPASE, HEPATIC, CBC, PT, BMP, PTT #### [address] Urea nitrogen [Mass/Vol] 8 mg/dL Normal 7-25 [facility] Comment on above: Performed By: #### L IPASE, HEPATIC, CBC, PT, BMP, PTT #### [address] Ferritinon 03-21-2023 Ferritin [Mass/Vol] 316.0 ng/mL High 11.0-306.8 [facility] Comment on above: Result Comment: PERF ORMED BY: [place] [address] PATHOLOGIST [employer] MANAGER CLAU ZAVALA M.D. Performed By: #### L IPASE, HEPATIC, CBC, PT, BMP, PTT #### [address] Free K+L LT Chains, Qn, Son 03-21-2023 Free [place] Light Chains, S 19.2 mg/L Normal 3.3-19.4 [facility] Comment on above: Performed By: #### L IPASE, HEPATIC, CBC, PT, BMP, PTT #### [facility] [address] Free Lambda Light Chains, S 14.7 mg/L Normal 5.7-26.3 [facility] Comment on above: Performed By: #### L IPASE, HEPATIC, CBC, PT, BMP, PTT #### [facility] [address] [place] [address] [place]/Lambda Ratio, S 1.31 Normal 0.26-1.65 [facility] Comment on above: Result Comment: Perf ormed at: - [facility] [address] [place], [place] [id number] Information Security Officer: Alan Macias PhD, Phone: [phone] PERFORMED BY: [place] [address] PATHOLOGIST [employer] MANAGER CLAU ZAVALA M.D. Performed By: #### L IPASE, HEPATIC, CBC, PT, BMP, PTT #### [facility] [address] IgA [Mass/volume] in Serum o r PlasmaOrdered By: Kelly Hough on 03-21-2023 IgA [Mass/Vol] 158 mg/dL 87-352 [facility] IgG [Mass/volume] in Serum o r PlasmaOrdered By: Kelly Hough on 03-21-2023 IgG [Mass/Vol] 1046 mg/dL [phone] [facility] IgM [Mass/volume] in Serum o r PlasmaOrdered By: Kelly Hough on 03-21-2023 IgM [Mass/Vol] 302 mg/dL 26-217 [facility] Comment on above: Performed at: [facility] - [facility] [id number] [place], [place] [id number] Director: Alan Macias PhD, Phone: [phone] Immunofixation,Serumon 03-21 Immunofixation, Serum Normal . [facility] Comment on above: Result Comment: No m onoclonality detected. Performed By: #### L IPASE, HEPATIC, CBC, PT, BMP, PTT #### [facility] [address] [place] [id number] [facility] Immunoglobulin A, Serum 158 mg/dL Normal 87-352 [facility] Comment on above: Performed By: #### L IPASE, HEPATIC, CBC, PT, BMP, PTT #### [facility] [address] [place] [id number] [facility] Immunoglobulin G 1046 mg/dL Normal 586-1602 [facility] Comment on above: Performed By: #### L IPASE, HEPATIC, CBC, PT, BMP, PTT #### [facility] [address] [place] [id number] [facility] Immunoglobulin M, Serum 302 mg/dL High 26-217 [facility] Comment on above: Result Comment: Perf ormed at: [facility] [address] [id number] Information Security Officer: Alan Macias PhD, Phone: [phone] Performed By: #### L IPASE, HEPATIC, CBC, PT, BMP, PTT #### [facility] [address] [place] [id number] [facility] Immunoglobulin light chains. kappa.free [Mass/volume] in SerumOrdered By: Kelly Hough on 03-21-2023 Immunoglobulin light chains.kappa.free (S) [Mass/Vol] 19.2 mg/L 3.3-19.4 [facility] Immunoglobulin light chains. kappa.free/Immunoglobulin light chains.lambda.free [MassOrdered By: Kelly Hough on 03-21-2023 Immunoglobulin light chains.kappa.free/Immu noglobulin light chains.lambda.free (S) [Mass ratio] 1.31 0.26-1.65 [facility] Comment on above: Performed at: [facility] [id number] [place] [address] [id number] Director: Alan Macias PhD, Phone: [phone] Immunoglobulin light chains. lambda.free [Mass/volume] in Serum or PlasmaOrdered By: Kelly Hough on 03-21-2023 Immunoglobulin light chains.lambda.free [Mass/Vol] 14.7 mg/L 5.7-26.3 [facility] Iron and TIBC Profileon % Iron Saturation 38.9 % Normal 20-50 [facility] Comment on above: Performed By: #### L IPASE, HEPATIC, CBC, PT, BMP, PTT #### [facility] [address] Iron [Mass/Vol] 82 ug/dL Normal 50-212 [facility] Comment on above: Performed By: #### L IPASE, HEPATIC, CBC, PT, BMP, PTT #### [facility] [address] Total Iron Binding Capacity 211 ug/dL Low 255-450 [facility] Comment on above: Performed By: #### L IPASE, HEPATIC, CBC, PT, BMP, PTT #### [facility] [address] Transferrin [Mass/Vol] 151 mg/dL Low 203-362 [facility] Comment on above: Performed By: #### L IPASE, HEPATIC, CBC, PT, BMP, PTT #### [facility] [address] Tone 03-21-2023 L ------- Specimen: [id number] Received: 03/21/23 Status: RONAK Nath Num: [id number] Spec Type: Impression Subm Dr: Kelly Hough APRN Tissues: Procedures: PATHREVIEW Comments: Provider's order Age/ Patient Sex Location Account Attending Physician Leandra Fonseca 32/F XT [id number] Kelly Hough APRN SPEC NUM: [id number] RECD: 03/21/23 STATUS: RONAK JAN NUM: [id number] JERROD: 03/21/[address] [facility] [address]: Kelly Hough APRN ENTERED: 03/21/[address] [facility] [address]: Yudelka Lopez APRN, COFFEE SOMMELIER-C SPEC TYPE: Impression DEPT: ME ENTERED BY: [id number] RECV BY: [id number] ORDERED: PATHREVIEW COMMENTS: Provider's order ORDERED: PATHREVIEW COMMENTS: Provider's order Pathologist Review Hypochromic microcytic anemia with anisocytosis. The neutrophils exhibit no significant morphologic abnormality. The lymphocytes consist of heterogeneous population, occasional smudge cells. Platelets are adequate in numbers (283K) and morphology. Note: Anemia can be seen in a variety of reactive processes, including nutritional deficiency, iron deficiency, hemoglobinopathy, anemia associated with chronic disease, blood loss, infections, medications, and inflammatory or neoplastic process. Persistent, unexplained or worsening cytopenias should be followed-up to rule out a primary bone marrow disorder. [address] CBC Date Time Test Result Flag (u) Normal Range 03/21/23 1556 WBC 7.5 3.8-11.6 X10E3/uL RBC 4.73 3.60-5.00 X10E6/uL HGB 10.8 L 11.8-15.4 g/dL HCT 34.6 34.0-46.4 % MCV 73.1 L 80-100 fl MCH 22.9 L 24.7-34.3 pg Specimen: [id number] Received: 03/21/23 Status: RONAK Nath Num: [id number] Spec Type: Impression Subm Dr: Kelly Hough APRN Tissues: Procedures: PATHREVIEW Comments: Provider's order Patient: Leandra Fonseca [id number] (Continued) Specimen: [id number] Received: 03/21/23 (Continued) CBC (Continued) Signed (signature on file) Nabila Smith MD 03/22/23 1221 Specimen: [id number] Received: 03/21/23 Status: RONAK Nath Num: [id number] Spec Type: Impression Subm Dr: Kelly Hough APRN Tissues: Procedures: PATHREVIEW Comments: Provider's order Patient: Leandra Fonseca [id number] (Continued) Specimen: [id number] Received: 03/21/23 (Continued) CBC (Continued) MCHC 31.3 L 32.0-35.0 g/dL RDW 14.5 11.9-15.3 % Plt 283 150-450 x10E3/uL MPV 8.8 6.3-10.7 fl Neut % (Auto) 67.9 . % Lymp % (Auto) 25.5 . % Carolina % (Auto) 5.2 . % Eos % (Auto) 0.9 . % Baso % (Auto) 0.5 . % NRBC% 0.1 0-0.5 /100 WBC Neut # (Auto) 5.1 1.8-7.7 x10E3/uL Lymph # (Auto) 1.9 1.00-4.8 x10E3/uL Carolina # (Auto) 0.4 0.0-0.8 x10E3/uL Eos # (Auto) 0.1 0.0-0.45 x10E3/uL Baso# (Auto) 0.0 0.0-0.2 x10E3/uL Specimen: [id number] Received: 03/21/23 Status: RONAK Nath Num: [id number] Spec Type: Impression Subm Dr: Kelly Hough APRN Tissues: Procedures: PATHREVIEW Comments: Provider's order Patient: Leandra Fonseca [id number] (Continued) Signed (signature on file) Nabila Smith MD 03/22/23 1221 [facility] No Panel InformationOrdered By: Kelly Hough on 03-21-2023 Protein Electrophoresis M-Emanuel Not observed g/dL Not Observed [facility] Protein Electrophoresis Note See comment . [facility] Comment on above: Protein electrophore sis scan will follow via computer,mail, or senior information security engineer delivery. Serum Immunofixation See comment . [facility] Comment on above: No monoclonality det ected. Slides for Pathologist Review Ordered path review [facility] Pathologist Slide Reviewon 0 03-21-2023 Pathologist Slide Review Ordered Path Review [facility] Comment on above: Result Comment: PERF ORMED BY: [place] [address] PATHOLOGIST [employer] PROJECT MANAGER CLAU ZAVALA M.D. Performed By: #### L IPASE, HEPATIC, CBC, PT, BMP, PTT #### [facility] [address] [place] [address] Protein Electrophoresis, Ser umon 03-21-2023 Albumin [Mass/Vol] 3.6 g/dL Normal 2.9-4.4 [facility] Comment on above: Performed By: #### L IPASE, HEPATIC, CBC, PT, BMP, PTT #### [facility] [address] Albumin/Globulin [Mass ratio] 1.2 {ratio} Normal 0.7-1.7 [facility] Comment on above: Performed By: #### L IPASE, HEPATIC, CBC, PT, BMP, PTT #### [facility] [address] Fxfws-4-[id number] 0.3 g/dL Normal 0.0-0.4 [facility] Comment on above: Performed By: #### L IPASE, HEPATIC, CBC, PT, BMP, PTT #### [address] Bdyfp-5-Bmimgqqr 0.8 g/dL Normal 0.4-1.0 [facility] Comment on above: Performed By: #### L IPASE, HEPATIC, CBC, PT, BMP, PTT #### [address] Beta Globulin 0.7 g/dL Normal 0.7-1.3 [facility] Comment on above: Performed By: #### L IPASE, HEPATIC, CBC, PT, BMP, PTT #### [address] Gamma Globulin 1.1 g/dL Normal 0.4-1.8 [facility] Comment on above: Performed By: #### L IPASE, HEPATIC, CBC, PT, BMP, PTT #### [address] Globulin (S) [Mass/Vol] 2.9 g/dL Normal 2.2-3.9 [facility] Comment on above: Performed By: #### L IPASE, HEPATIC, CBC, PT, BMP, PTT #### [address] M-Emanuel Not Observed Normal Not Observed [facility] Comment on above: Performed By: #### L IPASE, HEPATIC, CBC, PT, BMP, PTT #### [address] Protein [Mass/Vol] 6.5 g/dL Normal 6.0-8.5 [facility] Comment on above: Performed By: #### L IPASE, HEPATIC, CBC, PT, BMP, PTT #### [address] SPE-Note Normal . [facility] Comment on above: Result Comment: Prot ein electrophoresis scan will follow via computer, mail, or senior information security engineer delivery. Performed By: #### L IPASE, HEPATIC, CBC, PT, BMP, PTT #### [facility] [address] Protein [Mass/volume] in Ser um or PlasmaOrdered By: Kelly France on 03-21-2023 Protein [Mass/Vol] 6.5 g/dL 6.0-8.5 [facility] Serum globulin measurement ( mass/volume)Ordered By: Kelly France on 03-21-2023 Globulin (S) [Mass/Vol] 2.9 g/dL 2.2-3.9 [facility] Serum or plasma albumin/glob ulin mass ratioOrdered By: Kelly France on 03-21-2023 Albumin/Globulin [Mass ratio] 1.2 {ratio} 0.7-1.7 [facility] Serum or plasma alpha 1 glob ulin measurement by electrophoresis (mass/volume)Ordered By: Kelly France on 03-21-2023 Alpha 1 globulin Elph [Mass/Vol] 0.3 g/dL 0.0-0.4 [facility] Serum or plasma alpha 2 glob ulin measurement by electrophoresis (mass/volume)Ordered By: Kelly France on 03-21-2023 Alpha 2 globulin Elph [Mass/Vol] 0.8 g/dL 0.4-1.0 [facility] Serum or plasma beta globuli n measurement by electrophoresis (mass/volume)Ordered By: Kelly France on 03-21-2023 Beta globulin Elph [Mass/Vol] 0.7 g/dL 0.7-1.3 [facility] Serum or plasma gamma globul in measurement by electrophoresis (mass/volume)Ordered By: Kelly France on 03-21-2023 Gamma globulin Elph [Mass/Vol] 1.1 g/dL 0.4-1.8 [facility] MR cervical spine wo conon 0 03-14-2023 MR cervical spine wo con [facility] [place] [address] MRI Report Signed Patient: Leandra Fonseca MR#: [id number] : 1990 Acct:[id number] Age/Sex: 32 / F ADM Date: 03/14/23 Loc: MR [facility]: [facility]: Yudelka Lopez APRN, COFFEE SOMMELIER-C Copies to: Yudelka Lopez APRN, KLEBERC Ordering Provider: Yudelka Lopez APRN, NADYA Date of Service: 03/14/23 MR/MR cervical spine wo con: Neck pain MR cervical spine wo con 03/14/2023 3:50 PM SIGNS AND SYMPTOMS: Neck pain and left shoulder pain with numbness and tingling extending into left arm PROTOCOL: Multiplanar multisequence MR images of the cervical spine were obtained without IV contrast COMPARISON: 10/02/2022 FINDINGS: The bones of the cervical spine are in anatomic alignment. There is preservation of vertebral body heights and intervertebral disc spaces. Bone marrow is hypointense on T1 in respect to intervertebral disc throughout the cervical and upper thoracic spine. This may represent red marrow conversion which may be physiologic or secondary to anemia. However, a marrow replacing process is not excluded. The cord is normal in signal. No epidural or paraspinous fluid collection is appreciated. The visualized paraspinous soft tissues are within normal limits. The prevertebral soft tissues are within normal limits. At C2-C3: There is a normal disc, central canal, and neural foramen. At C3-C4: There is a normal disc, central canal, and neural foramen. At C4-C5: There is a normal disc, central canal, and neural foramen. At C5-C6: There is a broad-based disc bulge with minimal spinal canal stenosis. No neural foraminal narrowing. At C6-C7: There is a normal disc, central canal, and neural foramen. At C7-T1: There is a normal disc, central canal, and neural foramen. MR/MR cervical spine wo con IMPRESSION: No significant spinal canal or neural foraminal narrowing. No cord compression or cord signal abnormality. Bone marrow is hypointense on T1 in respect to intervertebral disc throughout the cervical and upper thoracic spine. This may represent red marrow conversion which may be physiologic or secondary to anemia. However, a marrow replacing process is not excluded. Impression dictated by: Rebecca Ybarra M.D.03/14/2023 5:26 PM Dictation Location: [place] [address] Transcribed By: [facility] 03/14/23 1726 Dictated By: Rebecca Ybarra II, MD 03/14/23 1721 Signed By: 03/14/23 1726 Normal [facility] Alanine aminotransferase [En zymatic activity/volume] in Serum or PlasmaOrdered By: Jim Vega on 02-06-2023 ALT [Catalytic activity/Vol] 10 U/L 7-52 [facility] Albumin [Mass/volume] in Ser um or Plasma by Bromocresol green (BCG) dye binding methoOrdered By: Jim Vega on 02-06-2023 Albumin BCG dye [Mass/Vol] 4.2 g/dL 3.5-5.7 [facility] Alkaline phosphatase [Enzyma tic activity/volume] in Serum or PlasmaOrdered By: Jim Vega on 02-06-2023 ALP [Catalytic activity/Vol] 45 U/L 34-104 [facility] Aspartate aminotransferase [ Enzymatic activity/volume] in Serum or PlasmaOrdered By: Jim Vega on 02-06-2023 AST [Catalytic activity/Vol] 12 U/L 13-39 [facility] Automated erythrocytes count in urine sediment (number/area)Ordered By: Jim Vega on 02-06-2023 RBC Auto (Urine sed) [#/Area] 5-9 [HPF] 0-4 [facility] Automated leukocytes count i n urine sediment (number/area)Ordered By: Jim Vega on 02-06-2023 WBC Auto (Urine sed) [#/Area] 3-4 [HPF] 0-4 [facility] Basophils Auto (Bld) [#/Vol] Ordered By: Jim Vega on 02-06-2023 Basophils (Bld) [#/Vol] 0.0 10*3/uL 0.0-0.2 [facility] Basophils/100 WBC Auto (Bld) Ordered By: Jim Vega on 02-06-2023 Basophils/100 WBC (Bld) 0.7 % . [facility] Bilirubin Test strip Ql (U)O rdered By: Jim Vega on 02-06-2023 Bilirubin Ql (U) Negative Negative [facility] Bilirubin.total [Mass/volume ] in Serum or PlasmaOrdered By: Jim Vega on 02-06-2023 Bilirubin [Mass/Vol] 0.5 mg/dL 0.3-1.0 [facility] Calcium [Mass/volume] in Ser um or PlasmaOrdered By: Jim Vega on 02-06-2023 Calcium [Mass/Vol] 8.5 mg/dL 8.6-10.3 [facility] Carbon dioxide, total [Moles /volume] in Serum or PlasmaOrdered By: Jim Vega on 02-06-2023 CO2 [Moles/Vol] 26.0 mmol/L 21.0-31.0 [facility] Chloride [Moles/volume] in S salas or PlasmaOrdered By: Jim Vega on 02-06-2023 Chloride [Moles/Vol] 105 mmol/L 98-107 [facility] Color Auto (U)Ordered By: Narinder red Silvia on 02-06-2023 Color (U) Yellow Yellow [facility] Complete Blood Count Auto Di ffon 02-06-2023 Basophils (Bld) [#/Vol] 0.0 10*3/uL Normal 0.0-0.2 [facility] Comment on above: Result Comment: PERF ORMED BY: [place] [address] PATHOLOGIST [employer] PROJECT MANAGER CLAU ZAVALA M.D. Performed By: #### E SR, TSH3, CRP #### [facility] [address] [place] [address] #### CALPROTECT, CELIAC #### [facility] , Basophils/100 WBC (Bld) 0.7 % Normal . [facility] Comment on above: Performed By: #### E SR, TSH3, CRP #### [facility] [address] [place] [address] [place] #### CALPROTECT, CELIAC #### [facility] , Eosinophils (Bld) [#/Vol] 0.1 10*3/uL Normal 0.0-0.45 [facility] Comment on above: Performed By: #### E SR, TSH3, CRP #### [facility] [address] [place] [address] [place] #### CALPROTECT, CELIAC #### [facility] , Eosinophils/100 WBC (Bld) 2.2 % Normal . [facility] Comment on above: Performed By: #### E SR, TSH3, CRP #### [facility] [address] [place] [address] #### CALPROTECT, CELIAC #### [facility] , Erythrocyte distribution width (RBC) [Ratio] 14.3 % Normal 11.9-15.3 [facility] Comment on above: Performed By: #### E SR, TSH3, CRP #### [facility] [address] [place] [address] [place] #### CALPROTECT, CELIAC #### [facility] , Hematocrit (Bld) [Volume fraction] 35.2 % Normal 34.0-46.4 [facility] Comment on above: Performed By: #### E SR, TSH3, CRP #### [facility] [address] [place] [address] [place] #### CALPROTECT, CELIAC #### [facility] , Hemoglobin (Bld) [Mass/Vol] 11.0 g/dL Low 11.8-15.4 [facility] Comment on above: Performed By: #### E SR, TSH3, CRP #### [address] #### CALPROTECT, CELIAC #### [facility] , Lymphocytes (Bld) [#/Vol] 1.4 10*3/uL Normal 1.00-4.8 [facility] Comment on above: Performed By: #### E SR, TSH3, CRP #### [facility] [address] [place] [address] [place] #### CALPROTECT, CELIAC #### [facility] , Lymphocytes/100 WBC (Bld) 25.8 % Normal . [facility] Comment on above: Performed By: #### E SR, TSH3, CRP #### [facility] [address] [place] [address] #### CALPROTECT, CELIAC #### [facility] , MCH (RBC) [Entitic mass] 22.8 pg Low 24.7-34.3 [facility] Comment on above: Performed By: #### E SR, TSH3, CRP #### [facility] [address] [place] [address] [place] #### CALPROTECT, CELIAC #### [facility] , MCV (RBC) [Entitic vol] 73.2 fL Low 80-100 [facility] Comment on above: Performed By: #### E SR, TSH3, CRP #### [facility] [address] [place] [address] #### CALPROTECT, CELIAC #### [facility] , Mean Corpuscular HGB Conc 31.1 g/dL Low 32.0-35.0 [facility] Comment on above: Performed By: #### E SR, TSH3, CRP #### [facility] [address] [place] [address] #### CALPROTECT, CELIAC #### [facility] , Monocytes (Bld) [#/Vol] 0.4 10*3/uL Normal 0.0-0.8 [facility] Comment on above: Performed By: #### E SR, TSH3, CRP #### [facility] [address] [place] [address] [place] #### CALPROTECT, CELIAC #### [facility] , Monocytes/100 WBC (Bld) 18.18 % Normal 0.00-20.00 [facility] Comment on above: Performed By: #### E SR, TSH3, CRP #### [facility] [address] [place] [address] [place] #### CALPROTECT, CELIAC #### [facility] , Monocytes/100 WBC (Bld) 7.1 % Normal . [facility] Comment on above: Performed By: #### E SR, TSH3, CRP #### [facility] [address] [place] [address] [place] #### CALPROTECT, CELIAC #### [facility] , Neutrophils (Bld) [#/Vol] 3.4 10*3/uL Normal 1.8-7.7 [facility] Comment on above: Performed By: #### E SR, TSH3, CRP #### [facility] [address] [place] [address] [place] #### CALPROTECT, CELIAC #### [facility] , Neutrophils/100 WBC (Bld) 64.2 % Normal . [facility] Comment on above: Performed By: #### E SR, TSH3, CRP #### [facility] [address] [place] [address] #### CALPROTECT, CELIAC #### [facility] , NRBC% 0.1 /100{WBC} Normal 0-0.5 [facility] Comment on above: Performed By: #### E SR, TSH3, CRP #### [facility] [address] [place] [address] [place] #### CALPROTECT, CELIAC #### [facility] , Platelet mean volume (Bld) [Entitic vol] 9.4 fL Normal 6.3-10.7 [facility] Comment on above: Performed By: #### E SR, TSH3, CRP #### [facility] [address] [place] [address] [place] #### CALPROTECT, CELIAC #### [facility] , Platelets (Bld) [#/Vol] 175 10*3/uL Normal 150-450 [facility] Comment on above: Performed By: #### E SR, TSH3, CRP #### [facility] [address] [place] [address] [place] #### CALPROTECT, CELIAC #### [facility] , RBC (Bld) [#/Vol] 4.81 10*6/uL Normal 3.60-5.00 [facility] Comment on above: Performed By: #### E SR, TSH3, CRP #### [facility] [address] [place] [address] [place] #### CALPROTECT, CELIAC #### [facility] , WBC (Bld) [#/Vol] 5.3 10*3/uL Normal 3.8-11.6 [facility] Comment on above: Performed By: #### E SR, TSH3, CRP #### [facility] [address] [place] [address] [place] #### CALPROTECT, CELIAC #### [facility] , Comprehensive Metabolic Pane tone 02-06-2023 Albumin [Mass/Vol] 4.2 g/dL Normal 3.5-5.7 [facility] Comment on above: Performed By: #### E SR, TSH3, CRP #### [facility] [address] [place] [address] [place] #### CALPROTECT, CELIAC #### [facility] , Albumin/Globulin [Mass ratio] 1.4 {ratio} Normal [facility] Comment on above: Performed By: #### E SR, TSH3, CRP #### [facility] [address] [place] [address] [place] #### CALPROTECT, CELIAC #### [facility] , ALP [Catalytic activity/Vol] 45 U/L Normal 34-104 [facility] Comment on above: Performed By: #### E SR, TSH3, CRP #### [facility] [address] [place] [address] [place] #### CALPROTECT, CELIAC #### [facility] , ALT [Catalytic activity/Vol] 10 U/L Normal 7-52 [facility] Comment on above: Performed By: #### E SR, TSH3, CRP #### [facility] [address] [place] [address] #### CALPROTECT, CELIAC #### [facility] , Anion gap [Moles/Vol] 9.5 mmol/L Normal 6.0-15.0 [facility] Comment on above: Performed By: #### E SR, TSH3, CRP #### [facility] [address] [place] [address] #### CALPROTECT, CELIAC #### [facility] , AST [Catalytic activity/Vol] 12 U/L Low 13-39 [facility] Comment on above: Performed By: #### E SR, TSH3, CRP #### [facility] [address] [place] [address] #### CALPROTECT, CELIAC #### [facility] , Bilirubin [Mass/Vol] 0.5 mg/dL Normal 0.3-1.0 [facility] Comment on above: Performed By: #### E SR, TSH3, CRP #### [facility] [address] [place] [address] #### CALPROTECT, CELIAC #### [facility] , Calcium [Mass/Vol] 8.5 mg/dL Low 8.6-10.3 [facility] Comment on above: Performed By: #### E SR, TSH3, CRP #### [facility] [address] [place] [address] [place] #### CALPROTECT, CELIAC #### [facility] , Chloride [Moles/Vol] 105 mmol/L Normal 98-107 [facility] Comment on above: Performed By: #### E SR, TSH3, CRP #### [facility] [address] [place] [address] [place] #### CALPROTECT, CELIAC #### [facility] , CO2 [Moles/Vol] 26.0 mmol/L Normal 21.0-31.0 [facility] Comment on above: Performed By: #### E SR, TSH3, CRP #### [facility] [address] [place] [address] #### CALPROTECT, CELIAC #### [facility] , Creatinine [Mass/Vol] 0.78 mg/dL Normal 0.60-1.20 [facility] Comment on above: Performed By: #### E SR, TSH3, CRP #### [facility] [address] [place] [address] #### CALPROTECT, CELIAC #### [facility] , Creatinine Clr Calc Pharmacy 100.96 [facility] Comment on above: Result Comment: PERF ORMED BY: [place] [address] PATHOLOGIST [employer] PROJECT MANAGER CLAU ZAVALA M.D. Performed By: #### E SR, TSH3, CRP #### [address] #### CALPROTECT, CELIAC #### [facility] , GFR/1.73 sq M.predicted MDRD (S/P/Bld) [Vol rate/Area] mL/min/{1.73_m2} [facility] Comment on above: Performed By: #### E SR, TSH3, CRP #### [address] #### CALPROTECT, CELIAC #### [facility] , Globulin (S) [Mass/Vol] 3.0 g/dL [facility] Comment on above: Performed By: #### E SR, TSH3, CRP #### [facility] [address] [place] [address] [place] #### CALPROTECT, CELIAC #### [facility] , Glucose [Mass/Vol] 92 mg/dL Normal 70-100 [facility] Comment on above: Result Comment: [place] Glucose Reference Range is dependent on time and content of last meal. Glucose of more than 200 mg/dL in a nonstressed, ambulatory subject supports the diagnosis of Diabetes Mellitus. ADA recommended reference range Performed By: #### E SR, TSH3, CRP #### [facility] [address] [place] [address] [place] #### CALPROTECT, CELIAC #### [facility] , Potassium [Moles/Vol] 3.5 mmol/L Normal 3.5-5.1 [facility] Comment on above: Performed By: #### E SR, TSH3, CRP #### [facility] [address] [place] [address] [place] #### CALPROTECT, CELIAC #### [facility] , Protein [Mass/Vol] 7.2 g/dL Normal 6.4-8.9 [facility] Comment on above: Performed By: #### E SR, TSH3, CRP #### [facility] [address] [place] [address] [place] #### CALPROTECT, CELIAC #### [facility] , Sodium [Moles/Vol] 137 mmol/L Normal 136-145 [facility] Comment on above: Performed By: #### E SR, TSH3, CRP #### [facility] [address] [place] [address] [place] #### CALPROTECT, CELIAC #### [facility] , Urea nitrogen [Mass/Vol] 11 mg/dL Normal 7-25 [facility] Comment on above: Performed By: #### E SR, TSH3, CRP #### [facility] [address] [place] [address] [place] #### CALPROTECT, CELIAC #### [facility] , Creatinine [Mass/volume] in Serum or PlasmaOrdered By: Jim Vega on 02-06-2023 Creatinine [Mass/Vol] 0.78 mg/dL 0.60-1.20 [facility] Dipstick and Microscopicon 0 02-06-2023 Appearance (U) Clear Normal Clear [facility] Comment on above: Order Comment: Reaso n for Exam History of IBS;Constipation PT IS NON FASTING Performed By: #### E SR, TSH3, CRP #### [facility] [address] [place] [address] [place] #### CALPROTECT, CELIAC #### [facility] , Bacteria,Urine None Seen Normal None Seen [facility] Comment on above: Order Comment: Reaso n for Exam History of IBS;Constipation PT IS NON FASTING Performed By: #### E SR, TSH3, CRP #### [facility] [address] [place] [address] [place] #### CALPROTECT, CELIAC #### [facility] , Bilirubin,Urine Negative Normal Negative [facility] [facility] Comment on above: Order Comment: Reaso n for Exam History of IBS;Constipation PT IS NON FASTING Performed By: #### E SR, TSH3, CRP #### [facility] [address] [place] [address] [place] #### CALPROTECT, CELIAC #### [facility] , Color (U) Yellow Normal Yellow [facility] Comment on above: Order Comment: Reaso n for Exam History of IBS;Constipation PT IS NON FASTING Performed By: #### E SR, TSH3, CRP #### [facility] [address] [place] [address] [place] #### CALPROTECT, CELIAC #### [facility] , Glucose Ql (U) Normal Normal Normal [facility] Comment on above: Order Comment: Reaso n for Exam History of IBS;Constipation PT IS NON FASTING Performed By: #### E SR, TSH3, CRP #### [facility] [address] [place] [address] [place] #### CALPROTECT, CELIAC #### [facility] , Hyaline Casts,Urine 0-8 Normal 0-8 [facility] Comment on above: Order Comment: Reaso n for Exam History of IBS;Constipation PT IS NON FASTING Performed By: #### E SR, TSH3, CRP #### [facility] [address] [place] [address] [place] #### CALPROTECT, CELIAC #### [facility] , Ketones Ql (U) Negative Normal Negative [facility] Comment on above: Order Comment: Reaso n for Exam History of IBS;Constipation PT IS NON FASTING Performed By: #### E SR, TSH3, CRP #### [facility] [address] [place] [address] [place] #### CALPROTECT, CELIAC #### [facility] , Leukocyte esterase Test strip Ql (U) Negative Normal Negative [facility] Comment on above: Order Comment: Reaso n for Exam History of IBS;Constipation PT IS NON FASTING Performed By: #### E SR, TSH3, CRP #### [address] #### CALPROTECT, CELIAC #### [facility] , Nitrite,Urine Negative Normal Negative [facility] Comment on above: Order Comment: Reaso n for Exam History of IBS;Constipation PT IS NON FASTING Performed By: #### E SR, TSH3, CRP #### [facility] [address] [place] [address] [place] #### CALPROTECT, CELIAC #### [facility] , Occult Blood,Urine Trace High Negative [facility] Comment on above: Order Comment: Reaso n for Exam History of IBS;Constipation PT IS NON FASTING Performed By: #### E SR, TSH3, CRP #### [facility] [address] [place] [address] [place] #### CALPROTECT, CELIAC #### [facility] , pH (U) 8.0 [pH] Normal 5.0-9.0 [facility] Comment on above: Order Comment: Reaso n for Exam History of IBS;Constipation PT IS NON FASTING Performed By: #### E SR, TSH3, CRP #### [facility] [address] [place] [address] [place] #### CALPROTECT, CELIAC #### [facility] , Protein,Urine Negative Normal Negative [facility] Comment on above: Order Comment: Reaso n for Exam History of IBS;Constipation PT IS NON FASTING Performed By: #### E SR, TSH3, CRP #### [facility] [address] [place] [address] #### CALPROTECT, CELIAC #### [facility] , RBC,Urine 5-9 High 0-4 [facility] Comment on above: Order Comment: Reaso n for Exam History of IBS;Constipation PT IS NON FASTING Performed By: #### E SR, TSH3, CRP #### [facility] [address] [place] [address] [place] #### CALPROTECT, CELIAC #### [facility] , Specificy [place],Urine 1.010 Normal 1.001-1.03 0 [facility] Comment on above: Order Comment: Reaso n for Exam History of IBS;Constipation PT IS NON FASTING Performed By: #### E SR, TSH3, CRP #### [facility] [address] [place] [address] #### CALPROTECT, CELIAC #### [facility] , Squamous Epithelial Cell,Urine 5-9 High 0-2 [facility] Comment on above: Order Comment: Reaso n for Exam History of IBS;Constipation PT IS NON FASTING Performed By: #### E SR, TSH3, CRP #### [facility] [address] [place] [address] [place] #### CALPROTECT, CELIAC #### [facility] , Urobilinogen,Urine Normal Normal Normal [facility] Comment on above: Order Comment: Reaso n for Exam History of IBS;Constipation PT IS NON FASTING Performed By: #### E SR, TSH3, CRP #### [facility] [address] [place] [address] [place] #### CALPROTECT, CELIAC #### [facility] , WBC,Urine 3-4 Normal 0-4 [facility] Comment on above: Order Comment: Reaso n for Exam History of IBS;Constipation PT IS NON FASTING Performed By: #### E SR, TSH3, CRP #### [facility] [address] #### CALPROTECT, CELIAC #### [facility] , Eosinophils Auto (Bld) [#/Vo l]Ordered By: Jim Vega on 02-06-2023 Eosinophils (Bld) [#/Vol] 0.1 10*3/uL 0.0-0.45 [facility] Eosinophils/100 WBC Auto (Bl d)Ordered By: Jim Vega on 02-06-2023 Eosinophils/100 WBC (Bld) 2.2 % . [facility] Erythrocyte distribution wid th Auto (RBC) [Ratio]Ordered By: Jim Vega on 02-06-2023 Erythrocyte distribution width (RBC) [Ratio] 14.3 % 11.9-15.3 [facility] Globulin Calc (S) [Mass/Vol] Ordered By: Jim Vega on 02-06-2023 Globulin (S) [Mass/Vol] 3.0 g/dL [facility] Glucose [Mass/volume] in Ser um or PlasmaOrdered By: Jim Vega on 02-06-2023 Glucose [Mass/Vol] 92 mg/dL 70-100 [facility] Comment on above: ADA recommended refe rence rangeRandom Glucose Reference Range is dependent on time and content of last meal. Glucose of more than 200 mg/dL in a nonstressed, ambulatory subject supports the diagnosis of Diabetes Mellitus. HCG ( test) IA.rapi d Ql (U)Ordered By: Jim Vega on 02-06-2023 HCG ( test) Ql (U) Negative [facility] HCG,Urineon 02-06-2023 Beta HCG ( test) Ql (U) Negative Normal [facility] Comment on above: Order Comment: Reaso n for Exam History of IBS;Constipation PT IS NON FASTING Result Comment: PERF ORMED BY: [facility] [address] [place] [address] PATHOLOGIST [employer] CLAU ZAVALA M.D. Performed By: #### E SR, TSH3, CRP #### [facility] [address] #### CALPROTECT, CELIAC #### [facility] , Hematocrit Auto (Bld) [Volum e fraction]Ordered By: Jim Vega on 02-06-2023 Hematocrit (Bld) [Volume fraction] 35.2 % 34.0-46.4 [facility] Hemoglobin [Mass/volume] in BloodOrdered By: Jim Vega on 02-06-2023 Hemoglobin (Bld) [Mass/Vol] 11.0 g/dL 11.8-15.4 [facility] Ketones Auto test strip (U) [Mass/Vol]Ordered By: Jim Vega on 02-06-2023 Ketones (U) [Mass/Vol] Negative Negative Fi [facility] Laboratory - UrinalysisOrder ed By: Jim Vega on 02-06-2023 Hyaline casts LM Ql (Urine sed) 0-8 [LPF] 0-8 [facility] Leukocytes [#/volume] correc delmer for nucleated erythrocytes in Blood by Automated counOrdered By: Jim Vega on 02-06-2023 WBC corrected for nucl RBC Auto (Bld) [#/Vol] 5.3 10*3/uL 3.8-11.6 [facility] Lymphocytes Auto (Bld) [#/Vo l]Ordered By: Jim Vega on 02-06-2023 Lymphocytes (Bld) [#/Vol] 1.4 10*3/uL 1.00-4.8 [facility] Lymphocytes/100 WBC Auto (Bl d)Ordered By: Jim Vega on 02-06-2023 Lymphocytes/100 WBC (Bld) 25.8 % . [facility] MCH Auto (RBC) [Entitic mass ]Ordered By: Jim Vega on 02-06-2023 MCH (RBC) [Entitic mass] 22.8 pg 24.7-34.3 [facility] MCHC Auto (RBC) [Mass/Vol]Or dered By: Jim Vega on 02-06-2023 MCHC (RBC) [Mass/Vol] 31.1 g/dL 32.0-35.0 [facility] MCV Auto (RBC) [Entitic vol] Ordered By: Jim Vega on 02-06-2023 MCV (RBC) [Entitic vol] 73.2 fL 80-100 [facility] Monocyte distribution width [Entitic volume] in Blood by AutomatedOrdered By: Jim Vega on 02-06-2023 Monocyte distribution width Auto (Bld) [Entitic vol] 18.18 % 0.00-20.00 [facility] Monocytes Auto (Bld) [#/Vol] Ordered By: Jim Vega on 02-06-2023 Monocytes (Bld) [#/Vol] 0.4 10*3/uL 0.0-0.8 [facility] Monocytes/100 WBC Auto (Bld) Ordered By: Jim Vega on 02-06-2023 Monocytes/100 WBC (Bld) 7.1 % . [facility] Neutrophils Auto (Bld) [#/Vo l]Ordered By: Jim Vega on 02-06-2023 Neutrophils (Bld) [#/Vol] 3.4 10*3/uL 1.8-7.7 [facility] Neutrophils/100 WBC Auto (Bl d)Ordered By: Jim Vega on 02-06-2023 Neutrophils/100 WBC (Bld) 64.2 % . [facility] Nitrite Test strip Ql (U)Ord ered By: Jim Vega on 02-06-2023 Nitrite Ql (U) Negative Negative [facility] No Panel InformationOrdered By: Jim Vega on 02-06-2023 Estimated GFR (CKD-EPI) > 60.0 mL/Min [facility] Creatinine Clearance (Chem 100.96 [facility] Nucleated erythrocytes [Pres ence] in Blood by Automated countOrdered By: Jim Vega on 02-06-2023 Nucleated RBC Auto Ql (Bld) 0.1 /100{WBC} 0-0.5 [facility] Platelet mean volume Auto (B ld) [Entitic vol]Ordered By: Jim Vega on 02-06-2023 Platelet mean volume (Bld) [Entitic vol] 9.4 fL 6.3-10.7 [facility] Platelets Auto (Bld) [#/Vol] Ordered By: Jim Vega on 02-06-2023 Platelets (Bld) [#/Vol] 175 10*3/uL 150-450 [facility] Potassium [Moles/volume] in Serum or PlasmaOrdered By: Jim Vega on 02-06-2023 Potassium [Moles/Vol] 3.5 mmol/L 3.5-5.1 [facility] Protein Auto test strip (U) [Mass/Vol]Ordered By: Jim Vega on 02-06-2023 Protein (U) [Mass/Vol] Negative Negative Fi [facility] Protein [Mass/volume] in Ser um or PlasmaOrdered By: Jim Vega on 02-06-2023 Protein [Mass/Vol] 7.2 g/dL 6.4-8.9 [facility] RBC Auto (Bld) [#/Vol]Ordere d By: Jim Vega on 02-06-2023 RBC (Bld) [#/Vol] 4.81 10*6/uL 3.60-5.00 [facility] Serum or plasma albumin/glob ulin mass ratioOrdered By: Jim Vega on 02-06-2023 Albumin/Globulin [Mass ratio] 1.4 {ratio} [facility] Serum or plasma anion gap de terminationOrdered By: Jim Vega on 02-06-2023 Anion gap [Moles/Vol] 9.5 mmol/L 6.0-15.0 [facility] Sodium [Moles/volume] in Ser um or PlasmaOrdered By: Jim Vega on 02-06-2023 Sodium [Moles/Vol] 137 mmol/L 136-145 [facility] Specific gravity Auto test s trip (U) [Rel density]Ordered By: Jim Vega on 02-06-2023 Specific gravity (U) [Rel density] 1.010 1.001-1.03 0 [facility] Squamous epithelial cells de tection in urine sediment by light microscopyOrdered By: Jim Vega on 02-06-2023 Epithelial cells.squamous LM Ql (Urine sed) 5-9 [HPF] 0-2 [facility] Urea nitrogen [Mass/volume] in Serum or PlasmaOrdered By: Jim Vega on 02-06-2023 Urea nitrogen [Mass/Vol] 11 mg/dL 7-25 [facility] Urine bacteria detection by automated methodOrdered By: Jim Vega on 02-06-2023 Bacteria Auto Ql (U) None seen None Seen [facility] Urine clarity by refractomet ry automatedOrdered By: Jim Vega on 02-06-2023 Clarity Refractometry automated (U) Clear Clear [facility] Urine glucose measurement by automated test strip (mass/volume)Ordered By: Jim Vega on 02-06-2023 Glucose Auto test strip (U) [Mass/Vol] Normal mg/dL Normal [facility] Urine hemoglobin detection b y automated test stripOrdered By: Jim Vega on 02-06-2023 Hemoglobin Auto test strip Ql (U) Trace Negative [facility] Urine leukocyte esterase det ection by automated test stripOrdered By: Jim Vega on 02-06-2023 Leukocyte esterase Auto test strip Ql (U) Negative Negative [facility] Urobilinogen Auto test strip (U) [Mass/Vol]Ordered By: Jim Vega on 02-06-2023 Urobilinogen (U) [Mass/Vol] Normal mg/dL Normal [facility] WBC Auto (Bld) [#/Vol]Ordere d By: Jim Vega on 02-06-2023 WBC (Bld) [#/Vol] 5.3 10*3/uL 3.8-11.6 [facility] pH Auto test strip (U)Ordere d By: Jim Vega on 02-06-2023 pH (U) 8.0 [pH] 5.0-9.0 [facility] NM gastric emptying studyon 01-29-2023 NM gastric emptying study [place] [id number] Nuclear Medicine Report Signed Patient: Leandra Fonseca MR#: [id number] : 1990 Acct:[id number] Age/Sex: 32 / F ADM Date: 01/29/23 Loc: [place] Room: Type: REG CLI Attending Dr: Jose Shanks MD Copies to: MD Leroy Jones Jr, DO Ordering Provider: Jose Shanks MD Date of Service: 01/29/23 NM/NM gastric emptying study: Abdominal pain;Bloating GASTRIC EMPTYING STUDY: CLINICAL HISTORY: Abdominal pain, bloating for 5 years FINDINGS: Following the oral ingestion of 1 mCi Tc 99m labeled sulfur colloid mixed with oatmeal, anterior imaging of the abdomen was performed out to 90 minutes. There is appropriate emptying of the stomach on the static and dynamic images. A time/activity curve was generated. The T 1/2 for gastric emptying is 54 minutes. Normal for semisolids is between 45 and 60 minutes. NM/NM gastric emptying study IMPRESSION: NO SCINTIGRAPHIC EVIDENCE OF GASTROPARESIS Impression dictated by: Leroy Mancera Jr., D.O.01/29/2023 9:29 AM Dictation Location: [place] [address] Transcribed By: [facility] 01/29/23 09 Dictated By: Leroy Mancera Jr, DO 01/29/23 0928 Signed By: 01/29/2329 Normal [facility] Ferritinon 01-24-2023 Ferritin [Mass/Vol] 64.3 ng/mL Normal 11.0-306.8 [facility] Comment on above: Result Comment: PERF ORMED BY: [place] [address] PATHOLOGIST [employer] CLAU ZAVALA M.D. Performed By: #### E SR, TSH3, CRP #### [facility] [address] [place] [address] #### CALPROTECT, CELIAC #### [facility] , Ferritin [Mass/volume] in Se rum or PlasmaOrdered By: Kelly Hough on 01-24-2023 Ferritin [Mass/Vol] 64.3 ng/mL 11.0-306.8 [facility] Iron [Mass/volume] in Serum or PlasmaOrdered By: Kelly Hough on 01-24-2023 Iron [Mass/Vol] 85 ug/dL 50-212 [facility] Iron and TIBC Profileon 01-15 0 % Iron Saturation 37.4 % Normal 20-50 [facility] Comment on above: Performed By: #### E SR, TSH3, CRP #### [facility] [address] [place] [address] [place] #### CALPROTECT, CELIAC #### [facility] , Iron [Mass/Vol] 85 ug/dL Normal 50-212 [facility] Comment on above: Performed By: #### E SR, TSH3, CRP #### [facility] [address] [place] [address] [place] #### CALPROTECT, CELIAC #### [facility] , Total Iron Binding Capacity 227 ug/dL Low 255-450 [facility] Comment on above: Performed By: #### E SR, TSH3, CRP #### [facility] [address] [place] [address] [place] #### CALPROTECT, CELIAC #### [facility] , Transferrin [Mass/Vol] 162 mg/dL Low 203-362 [facility] Comment on above: Performed By: #### E SR, TSH3, CRP #### [facility] [address] [place] [address] [place] #### CALPROTECT, CELIAC #### [facility] , Iron binding capacity [Mass/ volume] in Serum or PlasmaOrdered By: Kelly Hough on 01-24-2023 Iron binding capacity [Mass/Vol] 227 ug/dL 255-450 [facility] Iron saturation [Mass Fracti on] in Serum or PlasmaOrdered By: Kelly Hough on 01-24-2023 Iron saturation [Mass fraction] 37.4 % 20-50 [facility] Transferrin [Mass/volume] in Serum or PlasmaOrdered By: Kelly Hough on 01-24-2023 Transferrin [Mass/Vol] 162 mg/dL 203-362 [facility] Basophils Auto (Bld) [#/Vol] Ordered By: Kelly Hough on 12-25-2022 Basophils (Bld) [#/Vol] 0.0 10*3/uL 0.0-0.2 [facility] Basophils/100 WBC Auto (Bld) Ordered By: Kelly Hough on 12-25-2022 Basophils/100 WBC (Bld) 0.3 % . [facility] C reactive protein [Mass/vol ume] in Serum or PlasmaOrdered By: Jose Shanks on 12-25-2022 CRP [Mass/Vol] < 0.5 mg/dL 0.0-0.5 [facility] C-Reactive Proteinon 023 CRP [Mass/Vol] mg/L Normal 0.0-0.5 [facility] Comment on above: Order Comment: Reaso n for Exam History of IBS;Constipation PT IS NON FASTING Result Comment: PERF ORMED BY: [place] [address] PATHOLOGIST [employer] CLAU ZAVALA M.D. Performed By: #### E SR, TSH3, CRP #### [address] #### CALPROTECT, CELIAC #### [facility] , Calprotectin [Mass/mass] in StoolOrdered By: Jose Shanks on 12-25-2022 Calprotectin (Stl) [Mass/Mass] 32 ug/g 0-120 [facility] Comment on above: Concentration Interp retation Follow-Up<16 - 50 ug/g Normal None>50 -120 ug/g Borderline Re-evaluate in 4-6 weeks >120 ug/g Abnormal Repeat as clinically indicatedPerformed at: BN - [facility] [address] [id number] Director: Artemio Guillen MD, Phone: [phone] Calprotectin, Fecalon 2022 Calprotectin, Fecal 32 Normal 0-120 [facility] Comment on above: Order Comment: Reaso n for Exam History of IBS;Constipation Result Comment: Conc entration Interpretation Follow-Up <16 - 50 ug/g Normal None >50 -120 ug/g Borderline Re-evaluate in 4-6 weeks >120 ug/g Abnormal Repeat as clinically indicated Performed at: - [facility] [address] [id number] Information Security Officer: Artemio Guillen MD, Phone: [phone] PERFORMED BY: [place] [address] PATHOLOGIST [employer] CLAU ZAVALA M.D. Performed By: #### E SR, TSH3, CRP #### [place] [address] [place] #### CALPROTECT, CELIAC #### [facility] , Celiacon 12-25-2022 Deamidated Gliadin Abs, IgA 7 Normal 0-19 [facility] Comment on above: Order Comment: Reaso n for Exam History of IBS;Constipation Result Comment: Nega tive 0 - 19 Weak Positive 20 - 30 Moderate to Strong Positive >30 Performed By: #### E SR, TSH3, CRP #### [place] [address] [place] #### CALPROTECT, CELIAC #### [facility] , Deamidated Gliadin Abs, IgG 3 Normal 0-19 [facility] Comment on above: Order Comment: Reaso n for Exam History of IBS;Constipation Result Comment: Nega tive 0 - 19 Weak Positive 20 - 30 Moderate to Strong Positive >30 Performed By: #### E SR, TSH3, CRP #### [facility] [address] [place] [address] [place] #### CALPROTECT, CELIAC #### [facility] , Endomysial Antibody IgA Negative Normal Negative [facility] Comment on above: Order Comment: Reaso n for Exam History of IBS;Constipation Performed By: #### E SR, TSH3, CRP #### [facility] [address] [place] [address] [place] #### CALPROTECT, CELIAC #### [facility] , Immunoglobulin A, Qn, Serum 164 mg/dL Normal 87-352 [facility] Comment on above: Order Comment: Reaso n for Exam History of IBS;Constipation Result Comment: Perf ormed at: - [facility] [address] [id number] Information Security Officer: Alan Macias PhD, Phone: [phone] PERFORMED BY: [place] [address] PATHOLOGIST [employer]NA[employer] CLAU ZAVALA M.D. Performed By: #### E SR, TSH3, CRP #### [place] [address] [place] #### CALPROTECT, CELIAC #### [facility] , T-Transglutaminase (tTG) IgA <2 Normal 0-3 [facility] Comment on above: Order Comment: Reaso n for Exam History of IBS;Constipation Result Comment: Nega tive 0 - 3 Weak Positive 4 - 10 Positive >10 Tissue Transglutaminase (tTG) has been identified as the endomysial antigen. Studies have demonstr- ated that endomysial IgA antibodies have over 99% specificity for gluten sensitive enteropathy. Performed By: #### E SR, TSH3, CRP #### [facility] [address] [place] [address] [place] #### CALPROTECT, CELIAC #### [facility] , T-Transglutaminase (tTG) IgG <2 Normal 0-5 [facility] Comment on above: Order Comment: Reaso n for Exam History of IBS;Constipation Result Comment: Nega tive 0 - 5 Weak Positive 6 - 9 Positive >9 Performed By: #### E SR, TSH3, CRP #### [facility] [address] [place] [address] [place] #### CALPROTECT, CELIAC #### [facility] , Complete Blood Count Auto Di ffon 12-25-2022 Basophils (Bld) [#/Vol] 0.0 10*3/uL Normal 0.0-0.2 [facility] Comment on above: Result Comment: PERF ORMED BY: [place] [address] PATHOLOGIST [employer] CLAU ZAVALA M.D. Performed By: #### L IPASE, HEPATIC, CBC, PT, BMP, PTT #### [address] Basophils/100 WBC (Bld) 0.3 % Normal . [facility] Comment on above: Performed By: #### L IPASE, HEPATIC, CBC, PT, BMP, PTT #### [address] Eosinophils (Bld) [#/Vol] 0.1 10*3/uL Normal 0.0-0.45 [facility] Comment on above: Performed By: #### L IPASE, HEPATIC, CBC, PT, BMP, PTT #### [address] Eosinophils/100 WBC (Bld) 1.1 % Normal . [facility] Comment on above: Performed By: #### L IPASE, HEPATIC, CBC, PT, BMP, PTT #### [address] Erythrocyte distribution width (RBC) [Ratio] 15.5 % High 11.9-15.3 [facility] Comment on above: Performed By: #### L IPASE, HEPATIC, CBC, PT, BMP, PTT #### [address] Hematocrit (Bld) [Volume fraction] 35.3 % Normal 34.0-46.4 [facility] Comment on above: Performed By: #### L IPASE, HEPATIC, CBC, PT, BMP, PTT #### [address] Hemoglobin (Bld) [Mass/Vol] 11.0 g/dL Low 11.8-15.4 [facility] Comment on above: Performed By: #### L IPASE, HEPATIC, CBC, PT, BMP, PTT #### [address] Lymphocytes (Bld) [#/Vol] 1.7 10*3/uL Normal 1.00-4.8 [facility] Comment on above: Performed By: #### L IPASE, HEPATIC, CBC, PT, BMP, PTT #### [address] Lymphocytes/100 WBC (Bld) 25.5 % Normal . [facility] Comment on above: Performed By: #### L IPASE, HEPATIC, CBC, PT, BMP, PTT #### [address] MCH (RBC) [Entitic mass] 22.3 pg Low 24.7-34.3 [facility] Comment on above: Performed By: #### L IPASE, HEPATIC, CBC, PT, BMP, PTT #### [address] MCV (RBC) [Entitic vol] 71.8 fL Low 80-100 [facility] Comment on above: Performed By: #### L IPASE, HEPATIC, CBC, PT, BMP, PTT #### [address] Mean Corpuscular HGB Conc 31.1 g/dL Low 32.0-35.0 [facility] Comment on above: Performed By: #### L IPASE, HEPATIC, CBC, PT, BMP, PTT #### [address] Monocytes (Bld) [#/Vol] 0.4 10*3/uL Normal 0.0-0.8 [facility] Comment on above: Performed By: #### L IPASE, HEPATIC, CBC, PT, BMP, PTT #### [address] Monocytes/100 WBC (Bld) 6.3 % Normal . [facility] Comment on above: Performed By: #### L IPASE, HEPATIC, CBC, PT, BMP, PTT #### [address] Neutrophils (Bld) [#/Vol] 4.5 10*3/uL Normal 1.8-7.7 [facility] Comment on above: Performed By: #### L IPASE, HEPATIC, CBC, PT, BMP, PTT #### [facility] [address] Neutrophils/100 WBC (Bld) 66.8 % Normal . [facility] Comment on above: Performed By: #### L IPASE, HEPATIC, CBC, PT, BMP, PTT #### [facility] [address] NRBC% 0.2 /100{WBC} Normal 0-0.5 [facility] Comment on above: Performed By: #### L IPASE, HEPATIC, CBC, PT, BMP, PTT #### [address] Platelet mean volume (Bld) [Entitic vol] 9.5 fL Normal 6.3-10.7 [facility] Comment on above: Performed By: #### L IPASE, HEPATIC, CBC, PT, BMP, PTT #### [address] Platelets (Bld) [#/Vol] 191 10*3/uL Normal 150-450 [facility] Comment on above: Performed By: #### L IPASE, HEPATIC, CBC, PT, BMP, PTT #### [address] RBC (Bld) [#/Vol] 4.92 10*6/uL Normal 3.60-5.00 [facility] Comment on above: Performed By: #### L IPASE, HEPATIC, CBC, PT, BMP, PTT #### [address] WBC (Bld) [#/Vol] 6.8 10*3/uL Normal 3.8-11.6 [facility] Comment on above: Performed By: #### L IPASE, HEPATIC, CBC, PT, BMP, PTT #### [address] Eosinophils Auto (Bld) [#/Vo l]Ordered By: Kelly Hough on 12-25-2022 Eosinophils (Bld) [#/Vol] 0.1 10*3/uL 0.0-0.45 [facility] Eosinophils/100 WBC Auto (Bl d)Ordered By: Kelly France on 12-25-2022 Eosinophils/100 WBC (Bld) 1.1 % . [facility] Erythrocyte Sedimentation Ra rosendo 12-25-2022 ESR (Bld) [Velocity] 32 mm/h High 0-19 [facility] Comment on above: Order Comment: Reaso n for Exam History of IBS;Constipation Result Comment: PERF ORMED BY: [place] [address] PATHOLOGIST [employer] CLAU ZAVALA M.D. Performed By: #### E SR, TSH3, CRP #### [facility] [address] [place] [address] #### CALPROTECT, CELIAC #### [facility] , Erythrocyte distribution wid th Auto (RBC) [Ratio]Ordered By: Kelly France on 12-25-2022 Erythrocyte distribution width (RBC) [Ratio] 15.5 % 11.9-15.3 [facility] Erythrocyte sedimentation ra te by Photometric methodOrdered By: Imad Asaad on 12-25-2022 ESR Photometric method (Bld) [Velocity] 32 mm/hr 0- [facility] Ferritinon 12-25-2022 Ferritin [Mass/Vol] 58.3 ng/mL Normal 11.0-306.8 [facility] Comment on above: Result Comment: PERF ORMED BY: [place] [address] PATHOLOGIST [employer] CLAU ZAVALA M.D. Performed By: #### L IPASE, HEPATIC, CBC, PT, BMP, PTT #### [facility] [address] [place] [address] Ferritin [Mass/volume] in Se rum or PlasmaOrdered By: Kelly Hough on 12-25-2022 Ferritin [Mass/Vol] 58.3 ng/mL 11.0-306.8 [facility] Free T4 (Free Thyroxine)on 0 12-25-2022 Free T4 [Mass/Vol] 0.93 ng/dL Normal 0.61-1.12 [facility] Comment on above: Performed By: #### E SR, TSH3, CRP #### [facility] [address] #### CALPROTECT, CELIAC #### [facility] , Hematocrit Auto (Bld) [Volum e fraction]Ordered By: Kelly Hough on 12-25-2022 Hematocrit (Bld) [Volume fraction] 35.3 % 34.0-46.4 [facility] Hemoglobin [Mass/volume] in BloodOrdered By: Kelly Hough on 12-25-2022 Hemoglobin (Bld) [Mass/Vol] 11.0 g/dL 11.8-15.4 [facility] IgA [Mass/volume] in Serum o r PlasmaOrdered By: Jose Shanks on 12-25-2022 IgA [Mass/Vol] 164 mg/dL 87-352 [facility] Comment on above: Performed at: - [place] [id number] Director: Alan Macias PhD, Phone: [phone] Iron [Mass/volume] in Serum or PlasmaOrdered By: Kelly Hough on 12-25-2022 Iron [Mass/Vol] 112 ug/dL 50-212 [facility] Iron and TIBC Profileon 12-16 0 % Iron Saturation 46.5 % Normal 20-50 [facility] Comment on above: Performed By: #### L IPASE, HEPATIC, CBC, PT, BMP, PTT #### [facility] [address] [place] [address] Iron [Mass/Vol] 112 ug/dL Normal 50-212 [facility] Comment on above: Performed By: #### L IPASE, HEPATIC, CBC, PT, BMP, PTT #### [facility] [address] Total Iron Binding Capacity 241 ug/dL Low 255-450 [facility] Comment on above: Performed By: #### L IPASE, HEPATIC, CBC, PT, BMP, PTT #### [facility] [address] [place] [id number] [place] Transferrin [Mass/Vol] 172 mg/dL Low 203-362 [facility] Comment on above: Performed By: #### L IPASE, HEPATIC, CBC, PT, BMP, PTT #### [facility] [address] [place] [id number] [place] Iron binding capacity [Mass/ volume] in Serum or PlasmaOrdered By: Kelly Hough on 12-25-2022 Iron binding capacity [Mass/Vol] 241 ug/dL 255-450 [facility] Iron saturation [Mass Fracti on] in Serum or PlasmaOrdered By: Kelly Hough on 12-25-2022 Iron saturation [Mass fraction] 46.5 % 20-50 [facility] Leukocytes [#/volume] correc delmer for nucleated erythrocytes in Blood by Automated counOrdered By: Kelly Hough on 12-25-2022 WBC corrected for nucl RBC Auto (Bld) [#/Vol] 6.8 10*3/uL 3.8-11.6 [facility] Lymphocytes Auto (Bld) [#/Vo l]Ordered By: Kelly Hough on 12-25-2022 Lymphocytes (Bld) [#/Vol] 1.7 10*3/uL 1.00-4.8 [facility] Lymphocytes/100 WBC Auto (Bl d)Ordered By: Kelly Hough on 12-25-2022 Lymphocytes/100 WBC (Bld) 25.5 % . [facility] MCH Auto (RBC) [Entitic mass ]Ordered By: Kelly Hough on 12-25-2022 MCH (RBC) [Entitic mass] 22.3 pg 24.7-34.3 [facility] MCHC Auto (RBC) [Mass/Vol]Or dered By: Kelly Hough on 12-25-2022 MCHC (RBC) [Mass/Vol] 31.1 g/dL 32.0-35.0 [facility] MCV Auto (RBC) [Entitic vol] Ordered By: Kelly Hough on 12-25-2022 MCV (RBC) [Entitic vol] 71.8 fL 80-100 [facility] Monocytes Auto (Bld) [#/Vol] Ordered By: Kelly Hough on 12-25-2022 Monocytes (Bld) [#/Vol] 0.4 10*3/uL 0.0-0.8 [facility] Monocytes/100 WBC Auto (Bld) Ordered By: Kelly Hough on 12-25-2022 Monocytes/100 WBC (Bld) 6.3 % . [facility] Neutrophils Auto (Bld) [#/Vo l]Ordered By: Kelly Hough on 12-25-2022 Neutrophils (Bld) [#/Vol] 4.5 10*3/uL 1.8-7.7 [facility] Neutrophils/100 WBC Auto (Bl d)Ordered By: Kelly Hough on 12-25-2022 Neutrophils/100 WBC (Bld) 66.8 % . [facility] No Panel InformationOrdered By: Jose Shanks on 12-25-2022 Endomysial IgA Antibody Negative Negative [facility] Nucleated erythrocytes [Pres ence] in Blood by Automated countOrdered By: Kelly Hough on 12-25-2022 Nucleated RBC Auto Ql (Bld) 0.2 /100{WBC} 0-0.5 [facility] Platelet mean volume Auto (B ld) [Entitic vol]Ordered By: Kelly Hough on 12-25-2022 Platelet mean volume (Bld) [Entitic vol] 9.5 fL 6.3-10.7 [facility] Platelets Auto (Bld) [#/Vol] Ordered By: Kelly Hough on 12-25-2022 Platelets (Bld) [#/Vol] 191 10*3/uL 150-450 [facility] RBC Auto (Bld) [#/Vol]Ordere d By: Kelly Hough on 12-25-2022 RBC (Bld) [#/Vol] 4.92 10*6/uL 3.60-5.00 [facility] Serum gliadin peptide IgA an tibody assay (units/volume)Ordered By: Jose Shanks on 12-25-2022 Gliadin peptide IgA Qn (S) 7 units 0-19 [facility] Comment on above: Negative 0 - 19 Weak Positive 20 - 30 Moderate to Strong Positive >30 Serum gliadin peptide IgG an tibody assay (units/volume)Ordered By: Jose Shanks on 12-25-2022 Gliadin peptide IgG Qn (S) 3 units 0-19 [facility] Comment on above: Negative 0 - 19 Weak Positive 20 - 30 Moderate to Strong Positive >30 Serum tissue transglutaminas e (tTG) IgA antibody assay (units/volume)Ordered By: Jose Shanks on 12-25-2022 tTG IgA Qn (S) <2 U/mL 0-3 [facility] Comment on above: Negative 0 - 3 Weak Positive 4 - 10 Positive >10 Tissue Transglutaminase (tTG) has been identified as the endomysial antigen. Studies have demonstr- ated that endomysial IgA antibodies have over 99% specificity for gluten sensitive enteropathy. Serum tissue transglutaminas e (tTG) IgG antibody assay (units/volume)Ordered By: Jose Shanks on 12-25-2022 tTG IgG Qn (S) <2 U/mL 0-5 [facility] Comment on above: Negative 0 - 5 Weak Positive 6 - 9 Positive >9 Thyroid Stimulating Hormoneo n 12-25-2022 TSH Qn 0.78 m[IU]/L Normal 0.45-5.33 [facility] Comment on above: Order Comment: Reaso n for Exam History of IBS;Constipation Result Comment: PERF ORMED BY: [place] [address] PATHOLOGIST [employer] CLAU ZAVALA M.D. Performed By: #### E SR, TSH3, CRP #### [address] #### CALPROTECT, CELIAC #### [facility] , Thyrotropin [Units/volume] i n Serum or PlasmaOrdered By: Jose Shanks on 12-25-2022 TSH Qn 0.78 m[IU]/L 0.45-5.33 [facility] Thyroxine (T4) free [Mass/vo lume] in Serum or PlasmaOrdered By: Dayne Horton on 12-25-2022 Free T4 [Mass/Vol] 0.93 ng/dL 0.61-1.12 [facility] Transferrin [Mass/volume] in Serum or PlasmaOrdered By: Kelly Jackycristel on 12-25-2022 Transferrin [Mass/Vol] 172 mg/dL 203-362 [facility] Triiodothyronine (T3) Freeon 12-25-2022 Triiodothyronine (T3) Free 3.54 pg/mL Normal 2.50-3.90 [facility] Comment on above: Order Comment: Reaso n for Exam History of IBS;Constipation Result Comment: PERF ORMED BY: [place] [address] PATHOLOGIST [employer] CLAU ZAVALA M.D. Performed By: #### E SR, TSH3, CRP #### [facility] [address] [place] [address] #### CALPROTECT, CELIAC #### [facility] , Triiodothyronine (T3) Free [ Mass/volume] in Serum or PlasmaOrdered By: Dayne Horton on 12-25-2022 Free T3 [Mass/Vol] 3.54 pg/mL 2.50-3.90 [facility] Vitamin D 25 Hydroxy Totalon 12-25-2022 Vitamin D 25 Hydroxy Total 27.0 ng/mL Low 30-100 [facility] Comment on above: Result Comment: ALEXIA MIN D STATUS 25(OH)VITAMIN D RANGE (ng/mL) Deficient <20 Insufficient 20 to <30 Sufficient 30 to 100 Reference: Pam MF,Abelardo NC, Cj GARZA, et al. Evaluation,treatment, and prevention of vitamin D deficiency; an Endocrine Society clinical practice guideline. JCEM. 2010; 96(7):1911-30. PERFORMED BY: [place] [address] PATHOLOGIST [employer] CLAU ZAVALA M.D. Performed By: #### E SR, TSH3, CRP #### [facility] [address] [place] [address] [place] #### CALPROTECT, CELIAC #### [facility] , Vitamin D+Metabolites [Mass/ volume] in Serum or PlasmaOrdered By: Dayne Horton on 12-25-2022 Vitamin D+Metabolites [Mass/Vol] 27.0 ng/mL 30-100 [facility] Comment on above: VITAMIN D STATUS 25( OH)VITAMIN D RANGE (ng/mL) Deficient <20 Insufficient 20 to <30Sufficient 30 to 100Reference: Pam MF,Abelardo MUÑOZ, Cj GARZA, et al. Evaluation,treatment, and prevention of vitamin D deficiency; an Endocrine Society clinical practice guideline. JCEM. 2010; 96(7):1911-30. WBC Auto (Bld) [#/Vol]Ordere d By: Kelly Hough on 12-25-2022 WBC (Bld) [#/Vol] 6.8 10*3/uL 3.8-11.6 [facility] AMYLASEon 12-07-2022 Amylase [Catalytic activity/Vol] 82 U/L Normal 25-115 [facility] Comment on above: Performed By: #### U MICRO, PREGU, ERUR #### [facility] [address] [place] [address] [address] Adam Mejía CARDIAC REBECCA 3-6on 3 CK [Catalytic activity/Vol] 50 U/L Normal 26-192 [facility] Comment on above: Performed By: #### U MICRO, PREGU, ERUR #### [facility] [address] [place] [address] [address] Adam Mejía CK.MB [Mass/Vol] ng/mL Normal <=3.60 [facility] Comment on above: Performed By: #### U MICRO, PREGU, ERUR #### [facility] [address] [place] [address] [address] Adam Mejía HSTROP <4.0 Normal 4.0-51.3 [facility] Comment on above: Result Comment: CUT- OFF POINTS HAVE BEEN ESTABLISHED BASED ON THE FOURTH UNIVERSAL DEFINITIONS OF MYOCARDIAL INFARCTION. THE UPPER REFERENCE LIMIT (URL) OF TROPONIN, DEFINED THE 99TH PERCENTILE OF cTnI DISTRIBUTION IN A REFERENCE POPULATION, HAS BEEN CONFIRMED THE DECISION THRESHOLD FOR HI DIAGNOSIS. Performed By: #### U MICRO, PREGU, ERUR #### [facility] [address] [place] [address] [address] Adam Mejía CARDIAC REBECCA ADMITon 023 CK [Catalytic activity/Vol] 60 U/L Normal 26-192 [facility] Comment on above: Performed By: #### U MICRO, PREGU, ERUR #### [facility] [address] [place] [address] [address] Adam Mejía CK.MB [Mass/Vol] ng/mL Normal <=3.60 [facility] Comment on above: Performed By: #### U MICRO, PREGU, ERUR #### [facility] [address] [place] [address] Dr. Adam Mejía HSTROP <4.0 Normal 4.0-51.3 [facility] Comment on above: Result Comment: CUT- OFF POINTS HAVE BEEN ESTABLISHED BASED ON THE FOURTH UNIVERSAL DEFINITIONS OF MYOCARDIAL INFARCTION. THE UPPER REFERENCE LIMIT (URL) OF TROPONIN, DEFINED THE 99TH PERCENTILE OF cTnI DISTRIBUTION IN A REFERENCE POPULATION, HAS BEEN CONFIRMED THE DECISION THRESHOLD FOR HI DIAGNOSIS. Performed By: #### U MICRO, PREGU, ERUR #### [facility] [address] [place] [address] Dr. Adam Mejía OSMIN 17 ng/mL Normal 9-82 [facility] Comment on above: Performed By: #### U MICRO, PREGU, ERUR #### [facility] [address] [place] [address] [address] Adam Mejía CBC AUTO DIFFon 12-07-2022 BASO # 0.0 103/ul Normal 0.0-0.1 [facility] Comment on above: Performed By: #### U MICRO, PREGU, ERUR #### [facility] [address] [place] [address] Dr. Adam Mejía Basophils/100 WBC (Bld) 0.3 % Normal 0.2-2.0 [facility] Comment on above: Performed By: #### U MICRO, PREGU, ERUR #### [facility] [address] [place] [address] Dr. Adam Mejía EO # 0.2 103/ul Normal 0.0-0.7 [facility] Comment on above: Performed By: #### U MICRO, PREGU, ERUR #### [facility] [address] [place] [address] [address] Adam Mejía Eosinophils/100 WBC (Bld) 2.5 % Normal 0.9-7.0 [facility] Comment on above: Performed By: #### U MICRO, PREGU, ERUR #### [facility] [address] [place] [address] [address] Adam Mejía Erythrocyte distribution width (RBC) [Ratio] 15.2 % Critically high 11.0-15.0 [facility] Comment on above: Performed By: #### U MICRO, PREGU, ERUR #### [facility] [address] [place] [address] Dr. Adam Mejía Hematocrit (Bld) [Volume fraction] 34.8 % Critically low 36.0-48.0 [facility] Comment on above: Performed By: #### U MICRO, PREGU, ERUR #### [facility] [address] [place] [address] [address] Adam Mejía Hemoglobin (Bld) [Mass/Vol] 10.6 g/dL Critically low 12.0-16.0 [facility] Comment on above: Performed By: #### U MICRO, PREGU, ERUR #### [facility] [address] [place] [address] [address] Adam Mejía IG # 0.02 10e3/ul Normal 0.00-0.03 [facility] Comment on above: Performed By: #### U MICRO, PREGU, ERUR #### [facility] [address] [place] [address] [address] Adam Mejía IG % 0.2 % Normal 0.0-0.5 [facility] Comment on above: Performed By: #### U MICRO, PREGU, ERUR #### [facility] [address] [place] [address] [address] Adam Mejía LYMPH # 2.1 103/ul Normal 1.2-3.8 [facility] Comment on above: Performed By: #### U MICRO, PREGU, ERUR #### [facility] [address] [place] [address] Dr. Adam Mejía Lymphocytes/100 WBC (Bld) 23.0 % Normal 20.5-60.0 [facility] Comment on above: Performed By: #### U MICRO, PREGU, ERUR #### [facility] [address] [place] [address] Dr. Adam Mejía MANUAL DIFF REQ NO Normal [facility] Comment on above: Performed By: #### U MICRO, PREGU, ERUR #### [facility] [address] [place] [address] Dr. Adam Mejía MCH (RBC) [Entitic mass] 22.5 pg Critically low 26.7-34.0 [facility] Comment on above: Performed By: #### U MICRO, PREGU, ERUR #### [facility] [address] [place] [address] Dr. Adam Mejía MCHC (RBC) [Mass/Vol] 30.5 g/dL Normal 29.9-35.2 [facility] Comment on above: Performed By: #### U MICRO, PREGU, ERUR #### [facility] [address] [place] [address] Dr. Adam Mejía MCV (RBC) [Entitic vol] 73.9 fL Critically low 81.0-99.0 [facility] Comment on above: Performed By: #### U MICRO, PREGU, ERUR #### [facility] [address] [place] [address] Dr. Adam Mejía MONO # 0.5 103/ul Normal 0.3-0.8 [facility] Comment on above: Performed By: #### U MICRO, PREGU, ERUR #### [facility] [address] [place] [address] Dr. Adam Mejía Monocytes/100 WBC (Bld) 5.8 % Normal 1.7-12.0 [facility] Comment on above: Performed By: #### U MICRO, PREGU, ERUR #### [facility] [address] [place] [address] [address] Adma Mejía NEUT # 6.3 103/ul Normal 1.4-6.5 [facility] Comment on above: Performed By: #### U MICRO, PREGU, ERUR #### [facility] [address] [place] [address] [address] Adam Mejía Neutrophils/100 WBC (Bld) 68.2 % Normal 43.0-75.0 [facility] Comment on above: Performed By: #### U MICRO, PREGU, ERUR #### [facility] [address] [place] [address] [address] Adam Mejía Platelet mean volume (Bld) [Entitic vol] 11.8 fL Normal 9.5-13.5 [facility] Comment on above: Performed By: #### U MICRO, PREGU, ERUR #### [facility] [address] [place] [address] [address] Adam Mejía PLT 250 103/ul Normal 150-450 [facility] Comment on above: Performed By: #### U MICRO, PREGU, ERUR #### [facility] [address] [place] [address] [address] Adam Mejía RBC 4.71 106/ul Normal 4.20-5.40 [facility] Comment on above: Performed By: #### U MICRO, PREGU, ERUR #### [facility] [address] [place] [address] [address] Adam Mejía WBC 9.2 103/ul Normal 4.0-11.0 [facility] Comment on above: Performed By: #### U MICRO, PREGU, ERUR #### [facility] [address] [place] [address] [address] Adam Mejía ER URINE PROFILEon 3 Bilirubin Ql (U) Negative Normal NEGATIVE [facility] Comment on above: Performed By: #### U MICRO, PREGU, ERUR #### [facility] [address] [place] [address] [address] Adam Mejía Clarity (U) CLEAR Normal CLEAR [facility] Comment on above: Performed By: #### U MICRO, PREGU, ERUR #### [facility] [address] [address] [address] Adam Mejía Color (U) LT. YELLOW Normal YELLOW [facility] Comment on above: Performed By: #### U MICRO, PREGU, ERUR #### [facility] [address] [address] [address] Adam Mejía ERUAHD A micrscopic examina tion will be performed if indicated. Normal [facility] Comment on above: Performed By: #### U MICRO, PREGU, ERUR #### [facility] [address] [address] [address] Adam Mejía Glucose Ql (U) Negative Normal NEGATIVE [facility] Comment on above: Performed By: #### U MICRO, PREGU, ERUR #### [facility] [address] [place] [address] [address] Adam Mejía Hemoglobin Ql (U) SMALL Abnormal NEGATIVE [facility] Comment on above: Performed By: #### U MICRO, PREGU, ERUR #### [facility] [address] [place] [address] [address] Adam Mejía Ketones Ql (U) Negative Normal NEGATIVE [facility] Comment on above: Performed By: #### U MICRO, PREGU, ERUR #### [facility] [address] [address] [address] Adam Mejía LEUKOCYTES Negative Normal NEGATIVE [facility] Comment on above: Performed By: #### U MICRO, PREGU, ERUR #### [facility] [address] [address] [address] Adam Mejía Nitrite Ql (U) Negative Normal NEGATIVE [facility] Comment on above: Performed By: #### U MICRO, PREGU, ERUR #### [facility] [address] [address] [address] Adam Mejía pH (U) 8.0 [pH] Normal 5-9 [facility] Comment on above: Performed By: #### U MICRO, PREGU, ERUR #### [facility] [address] [address] [address] Adam Mejía SPEC GRAVITY 1.010 Normal 1.005-<=1. 025 [facility] Comment on above: Performed By: #### U MICRO, PREGU, ERUR #### [facility] [address] [place] [address] Dr. Adam Mejía UA PROTEIN Negative Normal NEGATIVE/ TRACE [facility] Comment on above: Performed By: #### U MICRO, PREGU, ERUR #### [facility] [address] [place] [address] Dr. Adam Mejía UR MICRO IND INDICATED Normal [facility] Comment on above: Performed By: #### U MICRO, PREGU, ERUR #### [facility] [address] [place] [address] Dr. Adam Mejía Urobilinogen Qn (U) 1.0 {Brinda'U}/dL Normal 0.2 - 1. 0 [facility] Comment on above: Performed By: #### U MICRO, PREGU, ERUR #### [facility] [address] [place] [address] Dr. Adam Mejía LACTATE/LACTIC ACIDon 2022 Lactate [Moles/Vol] 0.5 mmol/L Normal 0.4-2.0 [facility] Comment on above: Performed By: #### U MICRO, PREGU, ERUR #### [facility] [address] [place] [address] Dr. Adam Mejía LIPASEon 12-07-2022 Lipase [Catalytic activity/Vol] 219.0 U/L Normal 73.0-393.0 [facility] Comment on above: Performed By: #### U MICRO, PREGU, ERUR #### [facility] [address] [place] [address] Dr. Adam Mejía LIVER PROFILEon 12-07-2022 Albumin [Mass/Vol] 3.7 g/dL Normal 3.4-5.0 [facility] Comment on above: Performed By: #### U MICRO, PREGU, ERUR #### [facility] [address] [place] [address] Dr. Adam Mejía Albumin/Globulin [Mass ratio] 1.1 {ratio} Normal [facility] Comment on above: Performed By: #### U MICRO, PREGU, ERUR #### [facility] [address] [place] [address] Dr. Adam Mejía ALP [Catalytic activity/Vol] 57 U/L Normal 46-116 [facility] Comment on above: Performed By: #### U MICRO, PREGU, ERUR #### [facility] [address] [place] [address] Dr. Adam Mejía ALT [Catalytic activity/Vol] 15 U/L Normal 14-59 [facility] Comment on above: Performed By: #### U MICRO, PREGU, ERUR #### [facility] [address] [place] [address] Dr. Adam Mejía AST [Catalytic activity/Vol] 13 U/L Critically low 15-37 [facility] Comment on above: Performed By: #### U MICRO, PREGU, ERUR #### [facility] [address] [place] [address] Dr. Adam Mejía BILI, CONJUGATED 0.2 mg/dL Normal 0.0-0.2 [facility] Comment on above: Performed By: #### U MICRO, PREGU, ERUR #### [facility] [address] [place] [address] Dr. Adam Mejía Bilirubin [Mass/Vol] 0.2 mg/dL Normal 0.2-1.0 [facility] Comment on above: Performed By: #### U MICRO, PREGU, ERUR #### [facility] [address] [place] [address] Dr. Adam Mejía Globulin (S) [Mass/Vol] 3.4 g/dL Normal [facility] Comment on above: Performed By: #### U MICRO, PREGU, ERUR #### [facility] [address] [place] [address] Dr. Adam Mejía Protein [Mass/Vol] 7.1 g/dL Normal 6.4-8.2 [facility] Comment on above: Performed By: #### U MICRO, PREGU, ERUR #### [facility] [address] [address] [address] Adam Mejía PROF CHEM 8 (BAS METB)on Anion gap [Moles/Vol] 12.0 mmol/L Normal [facility] Comment on above: Performed By: #### U MICRO, PREGU, ERUR #### [facility] [address] [address] [address] Adam Mejía Calcium [Mass/Vol] 8.8 mg/dL Normal 8.5-10.1 [facility] Comment on above: Performed By: #### U MICRO, PREGU, ERUR #### [facility] [address] [address] [address] Adam Mejía Chloride [Moles/Vol] 102 mmol/L Normal 98-107 [facility] Comment on above: Performed By: #### U MICRO, PREGU, ERUR #### [facility] [address] [address] [address] Adam Mejía CO2 [Moles/Vol] 26.9 mmol/L Normal 21.0-32.0 [facility] Comment on above: Performed By: #### U MICRO, PREGU, ERUR #### [facility] [address] [address] [address] Adam Mejía Creatinine [Mass/Vol] 0.75 mg/dL Normal 0.55-1.02 [facility] Comment on above: Performed By: #### U MICRO, PREGU, ERUR #### [facility] [address] [address] [address] Adam Mejía EGFR-AF LEBANESE >60 Normal >=60 [facility] Comment on above: Performed By: #### U MICRO, PREGU, ERUR #### [facility] [address] [place] [address] Dr. Adam Mejía EGFR-NON AF LEBANESE >60 Normal >=60 [facility] Comment on above: Performed By: #### U MICRO, PREGU, ERUR #### [facility] [address] [address] [address] Adam Mejía Glucose [Mass/Vol] 97 mg/dL Normal 74-106 [facility] Comment on above: Performed By: #### U MICRO, PREGU, ERUR #### [facility] [address] [address] [address] Adam Mejía Potassium [Moles/Vol] 3.9 mmol/L Normal 3.5-5.1 [facility] Comment on above: Performed By: #### U MICRO, PREGU, ERUR #### [facility] [address] [address] [address] Adam Mejía Sodium [Moles/Vol] 137 mmol/L Normal 136-145 [facility] Comment on above: Performed By: #### U MICRO, PREGU, ERUR #### [facility] [address] [place] [address] Dr. Adam Mejía Urea nitrogen [Mass/Vol] 13.0 mg/dL Normal 7.0-18.0 [facility] Comment on above: Performed By: #### U MICRO, PREGU, ERUR #### [facility] [address] [place] [address] Dr. Adam Mejía Urea nitrogen/Creatinine [Mass ratio] 17.3 mg/mg Normal [facility] Comment on above: Performed By: #### U MICRO, PREGU, ERUR #### [facility] [address] [place] [address] Dr. Adam Mejía URINE MICROSCOPIC ONLYon BACTERIA NONE SEEN Normal NONE SEEN [facility] Comment on above: Performed By: #### U MICRO, PREGU, ERUR #### [facility] [address] [place] [address] Dr. Adam Meíja Bacteria identified Cx Nom (U) NOT INDICATED Normal [facility] Comment on above: Performed By: #### U MICRO, PREGU, ERUR #### [facility] [address] [place] [address] Dr. Adam Mejía CAST NONE SEEN Normal NONE SEEN [facility] Comment on above: Performed By: #### U MICRO, PREGU, ERUR #### [facility] [address] [place] [address] Dr. Adam Mejía Crystals LM Nom (Urine sed) NONE SEEN Normal NONE SEEN [facility] Comment on above: Performed By: #### U MICRO, PREGU, ERUR #### [facility] [address] [address] [address] Adam Mejía Epithelial cells LM Ql (Urine sed) RARE Normal NONE SEEN /RARE [facility] Comment on above: Performed By: #### U MICRO, PREGU, ERUR #### [facility] [address] [address] [address] Adam Mejía MUCOUS NONE SEEN Normal NONE SEEN [facility] Comment on above: Performed By: #### U MICRO, PREGU, ERUR #### [facility] [address] [place] [address] Dr. Adam Mejía RBC 2-5 Abnormal 0-2 [facility] Comment on above: Performed By: #### U MICRO, PREGU, ERUR #### [facility] [address] [place] [address] Dr. Adam Mejía WBC NONE SEEN Normal NONE SEEN [facility] Comment on above: Performed By: #### U MICRO, PREGU, ERUR #### [facility] [address] [place] [address] Dr. Adam Mejía XR ABD FLAT UP_PA Baudilio 12-07 XR ABD FLAT UP_PA CH ACUTE ABDOMINAL SER IES HISTORY: Abdominal pain TECHNIQUE: A single view of the chest and 2 views of the abdomen and pelvis are submitted for review. COMPARISON: None. FINDINGS: Chest x-ray: The lungs are adequately expanded. There is no acute infiltrate. There is no evidence for effusion. The cardiomediastinal silhouette measures within normal limits. Pulmonary vascularity is unremarkable. Osseous structures are within normal limits for age.. Abdomen: There is no evidence of free air.. The bowel gas pattern is nonobstructive. There are no abnormal calcifications. Osseous structures are within normal limits. IUD is present overlying the pelvis. IMPRESSION: Chest x-ray: No plain film evidence for acute cardiopulmonary disease. Abdomen: 1. Nonobstructive bowel gas pattern. 2. Moderate retention of stool. Electronically authenticated by: LENI ANGEL Date: 2022-12-07 00:23 Normal [facility] US PELVIS TRANSVAGon 023 US PELVIS TRANSVAG EXAMINATION: US PELV IS TRANSVAG HISTORY: Cyst of right ovary , follow-up COMPARISON: Ultrasound pelvis 07/28/2022 TECHNIQUE: Transabdominal and transvaginal sonographic examination. FINDINGS: UTERUS: 2.4 cm mass within anterior fundal myometrium favoring a leiomyoma. This appears to contact the endometrial margin. Uterus size: 9.2 x 5.7 x 4.6 cm ENDOMETRIUM: IUD within endometrial cavity. Normal thickness and echogenicity. Endometrial thickness: 8 mm RIGHT OVARY: Large 5.4 cm anechoic benign-appearing cyst arising from right ovary. Duplex Doppler demonstrates normal waveform and flow; resistive index 0.5. Ovary size: 6.0 x 5.3 x 4.1 cm LEFT OVARY: Normal size and appearance. Duplex Doppler demonstrates normal waveform and flow; resistive index 0.5. Ovary size: 2.7 x 1.9 x 1.9 cm CUL-DE-SAC: Unremarkable. No significant free fluid. BLADDER: Unremarkable. OTHER: None. IMPRESSION: 1. Stable uterine fundus leiomyoma. 2. Large 5.4 cm benign-appearing cyst arising from right ovary. Consider follow-up imaging in 6 weeks to document resolution. Electronically authenticated by: KALPESH FOWLER Date: 2022-11-29 11:27 Normal [facility] XR foot LT min 3V*on 023 XR foot LT min 3V* [facility] [place] [address] XRay Report Signed Patient: Leandra Fonseca MR#: [id number] : 1990 Acct:[id number] Age/Sex: 32 / F ADM Date: 11/28/22 Loc: ER Room: Type: [facility] ER Attending Dr: Copies to: Allegra Vega PA-C Ordering Provider: Allegra Vega PA-C Date of Service: 11/28/22 XR/XR foot LT min 3V*: Extremity Injury, Lower 3 views of the LEFT foot COMPARISON:None HISTORY:Plantar LEFT foot pain Acute findings:None Degenerative change:Unremarkable Soft tissue findings:Unremarkable Joint effusion:None Postop changes:None XR/XR foot LT min 3V* IMPRESSION:No acute findings Impression dictated by: Pablo Valero M.D.11/29/2022 7:55 AM Dictation Location: [place] [address] Transcribed By: [facility] 11/29/22 0755 Dictated By: Pablo Valero DO 11/29/22 0754 Signed By: 11/29/22 0755 Normal [facility] No Panel InformationOrdered By: Dayne Horton on 10-12-2022 25-Hydroxy Vitamin D Total 10.4 ng/mL 30-100 [facility] Comment on above: VITAMIN D STATUS 25( OH)VITAMIN D RANGE (ng/mL) Deficient <20 Insufficient 20 to <30Sufficient 30 to 100Reference: Pam MF,Abelardo MUÑOZ, Cj GARZA, et al. Evaluation,treatment, and prevention of vitamin D deficiency; an Endocrine Society clinical practice guideline. JCEM. 2010; 96(7):1911-30. Serum or plasma thyroglobuli n antibody assay (units/volume)Ordered By: Dayne Horton on 10-12-2022 Thyroglobulin Ab Qn [IU]/mL 0.0-0.9 [facility] Comment on above: Thyroglobulin Antibo dy measured by [employer] Key[employer] Communications HoldingsMethodologyPerformed at: CB - [facility] [address] [id number] Director: Alan Macias PhD, Phone: [phone] Serum or plasma thyroperoxid ase antibody assay (units/volume)Ordered By: Dayne Horton on 10-12-2022 TPO Ab Qn 11 [IU]/mL 0-34 [facility] Serum thyrotropin receptor a ntibody assay (units/volume)Ordered By: Dayne Horton on 10-12-2022 TSH receptor Ab Qn (S) <1.10 IU/L 0.00-1.75 [facility] Comment on above: Performed at: - [facility] [id number] Director: Artemio Guillen MD, Phone: [phone] TSH DL <= 0.005 mIU/L QnOrde red By: Dayne Horton on 10-12-2022 TSH Qn 0.06 m[IU]/L 0.45-5.33 [facility] Thyroxine (T4) free [Mass/vo lume] in Serum or PlasmaOrdered By: Dayne Horton on 10-12-2022 Free T4 [Mass/Vol] 1.02 ng/dL 0.61-1.12 [facility] Triiodothyronine (T3) Free [ Mass/volume] in Serum or PlasmaOrdered By: Dayne Horton on 10-12-2022 Free T3 [Mass/Vol] 3.90 pg/mL 2.50-3.90 [facility] Basophils Auto (Bld) [#/Vol] Ordered By: Kelly Hough on 10-03-2022 Basophils (Bld) [#/Vol] 0.0 10*3/uL 0.0-0.2 [facility] Basophils/100 WBC Auto (Bld) Ordered By: Kelly Hough on 10-03-2022 Basophils/100 WBC (Bld) 0.7 % . [facility] CT biopsyOrdered By: Kelly Ramos on 10-03-2022 Transferrin [Mass/Vol] 230 mg/dL 180-380 [facility] Eosinophils Auto (Bld) [#/Vo l]Ordered By: Kelly Hough on 10-03-2022 Eosinophils (Bld) [#/Vol] 0.1 10*3/uL 0.0-0.45 [facility] Eosinophils/100 WBC Auto (Bl d)Ordered By: Kelly Hough on 10-03-2022 Eosinophils/100 WBC (Bld) 2.4 % . [facility] Erythrocyte distribution wid th Auto (RBC) [Ratio]Ordered By: Kelly Hough on 10-03-2022 Erythrocyte distribution width (RBC) [Ratio] 15.2 % 11.9-15.3 [facility] Ferritin [Mass/volume] in Se rum or PlasmaOrdered By: Kelly Hough on 10-03-2022 Ferritin [Mass/Vol] 7.7 ng/mL 11-306.8 [facility] Hematocrit Auto (Bld) [Volum e fraction]Ordered By: Kelly Hough on 10-03-2022 Hematocrit (Bld) [Volume fraction] 31.2 % 34.0-46.4 [facility] Hemoglobin [Mass/volume] in BloodOrdered By: Kelly Hough on 10-03-2022 Hemoglobin (Bld) [Mass/Vol] 9.7 g/dL 11.8-15.4 [facility] Iron [Mass/volume] in Serum or PlasmaOrdered By: Kelly Hough on 10-03-2022 Iron [Mass/Vol] 96 ug/dL 40-150 [facility] Iron binding capacity [Mass/ volume] in Serum or PlasmaOrdered By: Kelly Hough on 10-03-2022 Iron binding capacity [Mass/Vol] 322 ug/dL 255-450 [facility] Iron saturation [Mass Fracti on] in Serum or PlasmaOrdered By: Kelly Hough on 10-03-2022 Iron saturation [Mass fraction] 29.8 % 20-50 [facility] Leukocytes [#/volume] correc delmer for nucleated erythrocytes in Blood by Automated counOrdered By: Kelly Hough on 10-03-2022 WBC corrected for nucl RBC Auto (Bld) [#/Vol] 5.6 10*3/uL 3.8-11.6 [facility] Lymphocytes Auto (Bld) [#/Vo l]Ordered By: Kelly Hough on 10-03-2022 Lymphocytes (Bld) [#/Vol] 1.7 10*3/uL 1.00-4.8 [facility] Lymphocytes/100 WBC Auto (Bl d)Ordered By: Kelly Hough on 10-03-2022 Lymphocytes/100 WBC (Bld) 30.9 % . [facility] MCH Auto (RBC) [Entitic mass ]Ordered By: Kelly Hough on 10-03-2022 MCH (RBC) [Entitic mass] 21.8 pg 24.7-34.3 [facility] MCHC Auto (RBC) [Mass/Vol]Or dered By: Kelly Hough on 10-03-2022 MCHC (RBC) [Mass/Vol] 31.2 g/dL 32.0-35.0 [facility] MCV Auto (RBC) [Entitic vol] Ordered By: Kelly Hough on 10-03-2022 MCV (RBC) [Entitic vol] 70.0 fL 80-100 [facility] Monocytes Auto (Bld) [#/Vol] Ordered By: Kelly Hough on 10-03-2022 Monocytes (Bld) [#/Vol] 0.4 10*3/uL 0.0-0.8 [facility] Monocytes/100 WBC Auto (Bld) Ordered By: Kelly Hough on 10-03-2022 Monocytes/100 WBC (Bld) 6.3 % . [facility] Neutrophils Auto (Bld) [#/Vo l]Ordered By: Kelly Hough on 10-03-2022 Neutrophils (Bld) [#/Vol] 3.4 10*3/uL 1.8-7.7 [facility] Neutrophils/100 WBC Auto (Bl d)Ordered By: Kelly Hough on 10-03-2022 Neutrophils/100 WBC (Bld) 59.7 % . [facility] Nucleated erythrocytes [Pres ence] in Blood by Automated countOrdered By: Kelly Hough on 10-03-2022 Nucleated RBC Auto Ql (Bld) 0.1 /100{WBC} 0-0.5 [facility] Platelet mean volume Auto (B ld) [Entitic vol]Ordered By: Kelly Hough on 10-03-2022 Platelet mean volume (Bld) [Entitic vol] 9.4 fL 6.3-10.7 [facility] Platelets Auto (Bld) [#/Vol] Ordered By: Kelly Hough on 10-03-2022 Platelets (Bld) [#/Vol] 226 10*3/uL 150-450 [facility] RBC Auto (Bld) [#/Vol]Ordere d By: Kelly Hough on 10-03-2022 RBC (Bld) [#/Vol] 4.46 10*6/uL 3.60-5.00 [facility] WBC Auto (Bld) [#/Vol]Ordere d By: Kelly Hough on 10-03-2022 WBC (Bld) [#/Vol] 5.6 10*3/uL 3.8-11.6 [facility] Free thyroxine indexOrdered By: Yudelka Lopez on 10-02-2022 Free T4 index Calc [Mass/Vol] 2.8 1.2-4.9 [facility] No Panel InformationOrdered By: Yudelka Lopez on 10-02-2022 Free Thyroxine (T4) Direct 8.6 ug/dL 4.5-12.0 [facility] TSH DL <= 0.005 mIU/L QnOrde red By: Yudelka Lopez on 10-02-2022 TSH Qn 0.037 m[IU]/L 0.450-4.50 0 [facility] Triiodothyronine (T3) [Mass/ volume] in Serum or PlasmaOrdered By: Yudelka Lopez on 10-02-2022 T3 [Mass/Vol] 135 ng/dL 71-180 [facility] Comment on above: Performed at: [address] [place] [id number] Director: Alan Macias PhD, Phone: [phone] Triiodothyronine (T3) resin uptake testOrdered By: Yudelka Lopez on 10-02-2022 T3RU 33 % 24-39 [facility] Activated partial thrombopla stin time (aPTT) in platelet poor plasma by coagulation aOrdered By: Jim Vega on 09-21-2022 aPTT Coag (PPP) [Time] 30.8 s 25.1-36.5 [facility] Albumin [Mass/volume] in Ser um or PlasmaOrdered By: Jim Vega on 09-21-2022 Albumin [Mass/Vol] 3.7 g/dL 3.2-5.5 [facility] Automated erythrocytes count in urine sediment (number/area)Ordered By: Jim Vega on 09-21-2022 RBC Auto (Urine sed) [#/Area] 1-2 [HPF] 0-4 [facility] Automated leukocytes count i n urine sediment (number/area)Ordered By: Jim Vega on 09-21-2022 WBC Auto (Urine sed) [#/Area] 0-1 [HPF] 0-4 [facility] Basophils Auto (Bld) [#/Vol] Ordered By: Jim Vega on 09-21-2022 Basophils (Bld) [#/Vol] 0.0 10*3/uL 0.0-0.2 [facility] Basophils/100 WBC Auto (Bld) Ordered By: Jim Vega on 09-21-2022 Basophils/100 WBC (Bld) 0.5 % . [facility] Bilirubin Test strip Ql (U)O rdered By: Jim Vega on 09-21-2022 Bilirubin Ql (U) Negative Negative [facility] COVID CepheidOrdered By: Rahat Vega on 09-21-2022 SARS-CoV-2 (COVID-19) Ab IA Ql Negative Negative [facility] Comment on above: This is a duplicate [employer] Xpert Xpress CoV-2/Flu/RSV Plus RNA by RT-PCR result to be used for statistical tracking purpose only. SARS-CoV-2 (COVID-19) RNA HIRAM+probe Ql (Unsp spec) [facility] SARS-CoV-2 (COVID-19) RNA HIRAM+probe Ql (Unsp spec) [facility] Color Auto (U)Ordered By: Narinder Vega on 09-21-2022 Color (U) Yellow Yellow [facility] Creatinine and Glomerular fi ltration rate.predicted panel (S/P/Bld)Ordered By: Jim Vega on 09-21-2022 Creatinine [Mass/Vol] 0.79 mg/dL 0.44-1.03 [facility] Eosinophils Auto (Bld) [#/Vo l]Ordered By: Jim Vega on 09-21-2022 Eosinophils (Bld) [#/Vol] 0.1 10*3/uL 0.0-0.45 [facility] Eosinophils/100 WBC Auto (Bl d)Ordered By: Jim Vega on 09-21-2022 Eosinophils/100 WBC (Bld) 2.7 % . [facility] Erythrocyte distribution wid th Auto (RBC) [Ratio]Ordered By: Jim Vega on 09-21-2022 Erythrocyte distribution width (RBC) [Ratio] 15.6 % 11.9-15.3 [facility] Estimated glomerular filtrat ion rate (GFR) non- AmericanOrdered By: Jim Vega on 09-21-2022 GFR/1.73 sq M.predicted among non-blacks MDRD (S/P/Bld) [Vol rate/Area] > 60 mL/Min [facility] Globulin Calc (S) [Mass/Vol] Ordered By: Jim Vega on 09-21-2022 Globulin (S) [Mass/Vol] 3.3 g/dL [facility] HCG ( test) IA.rapi d Ql (U)Ordered By: Jim Vega on 09-21-2022 HCG ( test) Ql (U) Negative [facility] Hematocrit Auto (Bld) [Volum e fraction]Ordered By: Jim Vega on 09-21-2022 Hematocrit (Bld) [Volume fraction] 31.9 % 34.0-46.4 [facility] Hemoglobin [Mass/volume] in BloodOrdered By: Jim Vega on 09-21-2022 Hemoglobin (Bld) [Mass/Vol] 9.9 g/dL 11.8-15.4 [facility] Ketones Auto test strip (U) [Mass/Vol]Ordered By: Jim Vgea on 09-21-2022 Ketones (U) [Mass/Vol] Negative Negative [facility] - CoagulationOrde red By: Jim Vega on 09-21-2022 PT Coag (PPP) [Time] 13.3 s 9.0-12.9 [facility] - UrinalysisOrder ed By: Jim Vega on 09-21-2022 Hyaline casts LM Ql (Urine sed) None seen [LPF] 0-8 [facility] Leukocytes [#/volume] correc delmer for nucleated erythrocytes in Blood by Automated counOrdered By: Jim Vega on 09-21-2022 WBC corrected for nucl RBC Auto (Bld) [#/Vol] 5.4 10*3/uL 3.8-11.6 [facility] Lymphocytes Auto (Bld) [#/Vo l]Ordered By: Jim Vega on 09-21-2022 Lymphocytes (Bld) [#/Vol] 1.4 10*3/uL 1.00-4.8 [facility] Lymphocytes/100 WBC Auto (Bl d)Ordered By: Jim Vega on 09-21-2022 Lymphocytes/100 WBC (Bld) 26.1 % . [facility] MCH Auto (RBC) [Entitic mass ]Ordered By: Jim Vega on 09-21-2022 MCH (RBC) [Entitic mass] 21.7 pg 24.7-34.3 [facility] MCHC Auto (RBC) [Mass/Vol]Or dered By: Jim Vega on 09-21-2022 MCHC (RBC) [Mass/Vol] 31.0 g/dL 32.0-35.0 [facility] MCV Auto (RBC) [Entitic vol] Ordered By: Jim Vega on 09-21-2022 MCV (RBC) [Entitic vol] 70.1 fL 80-100 [facility] Monocyte distribution width [Entitic volume] in Blood by AutomatedOrdered By: Jim Vega on 09-21-2022 Monocyte distribution width Auto (Bld) [Entitic vol] 15.00 % 0.00-20.00 [facility] Monocytes Auto (Bld) [#/Vol] Ordered By: Jim Vega on 09-21-2022 Monocytes (Bld) [#/Vol] 0.4 10*3/uL 0.0-0.8 [facility] Monocytes/100 WBC Auto (Bld) Ordered By: Jim Vega on 09-21-2022 Monocytes/100 WBC (Bld) 6.9 % . [facility] Neutrophils Auto (Bld) [#/Vo l]Ordered By: Jim Vega on 09-21-2022 Neutrophils (Bld) [#/Vol] 3.4 10*3/uL 1.8-7.7 [facility] Neutrophils/100 WBC Auto (Bl d)Ordered By: Jim Vega on 09-21-2022 Neutrophils/100 WBC (Bld) 63.8 % . [facility] Nitrite Test strip Ql (U)Ord ered By: Jim Vega on 09-21-2022 Nitrite Ql (U) Negative Negative [facility] No Panel InformationOrdered By: Jim Vega on 09-21-2022 D-Dimer Quantitative (PE/DVT) 205 ng/mL 0-243 [facility] Comment on above: The reference range for D-dimer is <243 ng/mL D-dimer units.D-dimer results must be used in conjunction with a clinicalpretest probability (PTP) assessment model for deep veinthrombosis (DVT) and pulmonary embolism (PE). Results <230ng/mL d-dimer units can be used as a negative predictor inpatients with low or moderate probability for DVT/PE.Results above the exclusion threshold of 230 ng/ml D-dimerunits for DVT/PE may indicate the need for furtherdiagnostic testing.D-Dimer can be increased in hospitalized patients due toco-morbid conditions. Estimated GFR () > 60 mL/Min [facility] Comment on above: GFR estimated refere nce range: According to KDOQI guidelines, <60 ml/min/1.73m2 is sufficient to diagnose a patient with chronic kidney disease. Pharmacy Creatinine Clearance (Chem 96.49 [facility] Nucleated erythrocytes [Pres ence] in Blood by Automated countOrdered By: Jim Vega on 09-21-2022 Nucleated RBC Auto Ql (Bld) 0.4 /100{WBC} 0-0.5 [facility] Platelet mean volume Auto (B ld) [Entitic vol]Ordered By: Jim Vega on 09-21-2022 Platelet mean volume (Bld) [Entitic vol] 10.0 fL 6.3-10.7 [facility] Platelet poor plasma interna tional normalized ratio (INR) by coagulation assay (relatOrdered By: Jim Vega on 09-21-2022 INR Coag (PPP) [Relative time] 1.2 {INR} [facility] Comment on above: INR Therapeutic Rang e A) Pre- and Peroperative OAT started two weeks before surgery. NOT HIP SURGERY: 1.5 - 2.5 HIP SURGERY: 2 - 3B) Primary and secondary prevention of venous THROMBOSIS: 2 - 3C) Active venous thrombosis, pulmonary embolismand prevention of recurrent venous thrombosis: 2 - 3D) Prevention of arterial thromboembolismincluding patients with mechanical heart valves: 3 - 4.5 Platelets Auto (Bld) [#/Vol] Ordered By: Jim Vega on 01-05-2023 Platelets (Bld) [#/Vol] 215 10*3/uL 150-450 [facility] Protein Auto test strip (U) [Mass/Vol]Ordered By: Jim Vega on 09-21-2022 Protein (U) [Mass/Vol] Negative Negative [facility] Protein [Mass/volume] in Ser um or PlasmaOrdered By: Jim Vega on 09-21-2022 Protein [Mass/Vol] 7.0 g/dL 6.1-7.9 [facility] RBC Auto (Bld) [#/Vol]Ordere d By: Jim Vega on 09-21-2022 RBC (Bld) [#/Vol] 4.54 10*6/uL 3.60-5.00 [facility] Serum or plasma alanine keene otransferase measurement without P-5'-P (enzymatic activiOrdered By: Jim Vega on 09-21-2022 ALT No additional P-5'-P [Catalytic activity/Vol] 11 U/L 10-60 [facility] Serum or plasma albumin/glob ulin mass ratioOrdered By: Jim Vega on 09-21-2022 Albumin/Globulin [Mass ratio] 1.1 {ratio} [facility] Serum or plasma alkaline jared sphatase measurement (enzymatic activity/volume)Ordered By: Jim Vega on 09-21-2022 ALP [Catalytic activity/Vol] 47 U/L 32-92 [facility] Serum or plasma anion gap de terminationOrdered By: Jim Vega on 09-21-2022 Anion gap [Moles/Vol] 10.0 mmol/L 6.0-15.0 [facility] Serum or plasma aspartate am inotransferase measurement (enzymatic activity/volume)Ordered By: Jim Vega on 09-21-2022 AST [Catalytic activity/Vol] 13 U/L 10-42 [facility] Serum or plasma calcium marychuy urement (mass/volume)Ordered By: Jim Vega on 09-21-2022 Calcium [Mass/Vol] 8.9 mg/dL 8.2-10.2 [facility] Serum or plasma chloride nemo surement (moles/volume)Ordered By: Jim Vega on 09-21-2022 Chloride [Moles/Vol] 105 mmol/L 95-114 [facility] Serum or plasma glucose marychuy urement (mass/volume)Ordered By: Jim Vega on 09-21-2022 Glucose [Mass/Vol] 114 mg/dL 70-100 [facility] Comment on above: ADA recommended refe rence rangeRandom Glucose Reference Range is dependent on time and content of last meal. Glucose of more than 200 mg/dL in a nonstressed, ambulatory subject supports the diagnosis of Diabetes Mellitus. Serum or plasma potassium me asurement (moles/volume)Ordered By: Jim Vega on 09-21-2022 Potassium [Moles/Vol] 3.5 mmol/L 3.5-5.1 [facility] Serum or plasma sodium measu rement (moles/volume)Ordered By: Jim Vega on 09-21-2022 Sodium [Moles/Vol] 134 mmol/L 136-146 [facility] Serum or plasma total biliru bin measurement (mass/volume)Ordered By: Jim Vega on 09-21-2022 Bilirubin [Mass/Vol] 0.5 mg/dL 0.3-1.2 [facility] Serum or plasma total carbon dioxide measurement (moles/volume)Ordered By: Jim Vega on 09-21-2022 CO2 [Moles/Vol] 22.5 mmol/L 22.0-30.0 [facility] Serum or plasma urea nitroge n measurement (mass/volume)Ordered By: Jim Vega on 09-21-2022 Urea nitrogen [Mass/Vol] 5 mg/dL 9-23 [facility] Specific gravity Auto test s trip (U) [Rel density]Ordered By: Jim Vega on 09-21-2022 Specific gravity (U) [Rel density] 1.004 1.001-1.03 0 [facility] Squamous epithelial cells de tection in urine sediment by light microscopyOrdered By: Jim Vega on 09-21-2022 Epithelial cells.squamous LM Ql (Urine sed) 0-1 [HPF] 0-2 [facility] TSH DL <= 0.005 mIU/L QnOrde red By: Jim Vega on 09-21-2022 TSH Qn 0.14 m[IU]/L 0.45-5.33 [facility] Thyroxine (T4) free [Mass/vo lume] in Serum or PlasmaOrdered By: Jmi Vega on 09-21-2022 Free T4 [Mass/Vol] 1.30 ng/dL 0.61-1.12 [facility] Troponin I.cardiac [Mass/vol ume] in Serum or Plasma by High sensitivity methodOrdered By: Jim Vega on 09-21-2022 Troponin I.cardiac High sensitivity method [Mass/Vol] < 3 pg/mL 0-15 [facility] Urine bacteria detection by automated methodOrdered By: Jim Vega on 09-21-2022 Bacteria Auto Ql (U) None seen None Seen [facility] Urine clarity by refractomet ry automatedOrdered By: Jim Vega on 09-21-2022 Clarity Refractometry automated (U) Clear Clear [facility] Urine glucose measurement by automated test strip (mass/volume)Ordered By: Jim Vega on 09-21-2022 Glucose Auto test strip (U) [Mass/Vol] Normal mg/dL Normal [facility] Urine hemoglobin detection b y automated test stripOrdered By: Jim Vega on 09-21-2022 Hemoglobin Auto test strip Ql (U) Trace Negative [facility] Urine leukocyte esterase det ection by automated test stripOrdered By: Jim Vega on 09-21-2022 Leukocyte esterase Auto test strip Ql (U) Negative Negative [facility] Urobilinogen Auto test strip (U) [Mass/Vol]Ordered By: Jim Vega on 09-21-2022 Urobilinogen (U) [Mass/Vol] Normal mg/dL Normal [facility] WBC Auto (Bld) [#/Vol]Ordere d By: Jim Vega on 09-21-2022 WBC (Bld) [#/Vol] 5.4 10*3/uL 3.8-11.6 [facility] pH Auto test strip (U)Ordere d By: Jim Vega on 09-21-2022 pH (U) 7.0 [pH] 5.0-9.0 [facility] Anisocytosis LM Ql (Bld)Orde red By: Tejinder Peraza on 09-15-2022 Anisocytosis Ql (Bld) Slight [facility] Basophils Auto (Bld) [#/Vol] Ordered By: Tejinder Peraza on 09-15-2022 Basophils (Bld) [#/Vol] 0.0 10*3/uL 0.0-0.2 [facility] Basophils/100 WBC Auto (Bld) Ordered By: Tejinder Peraza on 09-15-2022 Basophils/100 WBC (Bld) 0.3 % . [facility] Eosinophils Auto (Bld) [#/Vo l]Ordered By: Tejinder Peraza on 09-15-2022 Eosinophils (Bld) [#/Vol] 0.1 10*3/uL 0.0-0.45 [facility] Eosinophils/100 WBC Auto (Bl d)Ordered By: Tejinder Peraza on 09-15-2022 Eosinophils/100 WBC (Bld) 1.2 % . [facility] Erythrocyte distribution wid th Auto (RBC) [Ratio]Ordered By: Tejinder Peraza on 09-15-2022 Erythrocyte distribution width (RBC) [Ratio] 15.2 % 11.9-15.3 [facility] Hematocrit Auto (Bld) [Volum e fraction]Ordered By: Tejinder Peraza on 09-15-2022 Hematocrit (Bld) [Volume fraction] 30.9 % 34.0-46.4 [facility] Hemoglobin [Mass/volume] in BloodOrdered By: Tejinder Peraza on 09-15-2022 Hemoglobin (Bld) [Mass/Vol] 9.6 g/dL 11.8-15.4 [facility] Hypochromia LM Ql (Bld)Order ed By: Tejinder Peraza on 09-15-2022 Hypochromia Ql (Bld) Slight [facility] Leukocytes [#/volume] correc delmer for nucleated erythrocytes in Blood by Automated counOrdered By: Tejinder Peraza on 09-15-2022 WBC corrected for nucl RBC Auto (Bld) [#/Vol] 7.5 10*3/uL 3.8-11.6 [facility] Lymphocytes Auto (Bld) [#/Vo l]Ordered By: Tejinder Peraza on 09-15-2022 Lymphocytes (Bld) [#/Vol] 1.7 10*3/uL 1.00-4.8 [facility] Lymphocytes/100 WBC Auto (Bl d)Ordered By: Tejinder Peraza on 09-15-2022 Lymphocytes/100 WBC (Bld) 22.2 % . [facility] MCH Auto (RBC) [Entitic mass ]Ordered By: Tejinder Peraza on 09-15-2022 MCH (RBC) [Entitic mass] 21.8 pg 24.7-34.3 [facility] MCHC Auto (RBC) [Mass/Vol]Or dered By: Tejinder Sovigeri on 09-15-2022 MCHC (RBC) [Mass/Vol] 31.1 g/dL 32.0-35.0 [facility] MCV Auto (RBC) [Entitic vol] Ordered By: Tejinder Peraza on 09-15-2022 MCV (RBC) [Entitic vol] 70.0 fL 80-100 [facility] Microcytes LM Ql (Bld)Ordere d By: Tejinder Peraza on 09-15-2022 Microcytes Ql (Bld) Slight [facility] Monocytes Auto (Bld) [#/Vol] Ordered By: Tejinder Peraza on 09-15-2022 Monocytes (Bld) [#/Vol] 0.4 10*3/uL 0.0-0.8 [facility] Monocytes/100 WBC Auto (Bld) Ordered By: Tejinder Peraza on 09-15-2022 Monocytes/100 WBC (Bld) 5.3 % . [facility] Neutrophils Auto (Bld) [#/Vo l]Ordered By: Tejinder Somarii on 09-15-2022 Neutrophils (Bld) [#/Vol] 5.3 10*3/uL 1.8-7.7 [facility] Neutrophils/100 WBC Auto (Bl d)Ordered By: Tejinder Peraza on 09-15-2022 Neutrophils/100 WBC (Bld) 71.0 % . [facility] No Panel InformationOrdered By: Tejinder Peraza on 09-15-2022 D-Dimer Quantitative (PE/DVT) 245 ng/mL 0-243 [facility] Comment on above: The reference range for D-dimer is <243 ng/mL D-dimer units.D-dimer results must be used in conjunction with a clinicalpretest probability (PTP) assessment model for deep veinthrombosis (DVT) and pulmonary embolism (PE). Results <230ng/mL d-dimer units can be used as a negative predictor inpatients with low or moderate probability for DVT/PE.Results above the exclusion threshold of 230 ng/ml D-dimerunits for DVT/PE may indicate the need for furtherdiagnostic testing.D-Dimer can be increased in hospitalized patients due toco-morbid conditions. Nucleated erythrocytes [Pres ence] in Blood by Automated countOrdered By: Tejidner Peraza on 09-15-2022 Nucleated RBC Auto Ql (Bld) 0.1 /100{WBC} 0-0.5 [facility] Ovalocyte detectionOrdered B y: Tejinder Peraza on 09-15-2022 Ovalocytes LM Ql (Bld) Slight Fi [facility] Platelet adequacy [Presence] in Blood by Light microscopyOrdered By: Tejinder Peraza on 09-15-2022 Platelets LM Ql (Bld) Normal Normal Fir [facility] Platelet mean volume Auto (B ld) [Entitic vol]Ordered By: Tejinder Peraza on 09-15-2022 Platelet mean volume (Bld) [Entitic vol] 9.8 fL 6.3-10.7 [facility] Platelet morphology finding [Identifier] in BloodOrdered By: Tejinder Peraza on 09-15-2022 Platelet morphology finding Nom (Bld) Normal Normal [facility] Platelets Auto (Bld) [#/Vol] Ordered By: Tejinder Peraza on 09-15-2022 Platelets (Bld) [#/Vol] 212 10*3/uL 150-450 [facility] Poikilocytosis [Presence] in Blood by Light microscopyOrdered By: Tejinder Peraza on 09-15-2022 Poikilocytosis LM Ql (Bld) Slight [facility] Polychromasia [Presence] in Blood by Light microscopyOrdered By: Tejinder Peraza on 09-15-2022 Polychromasia LM Ql (Bld) Slight [facility] RBC Auto (Bld) [#/Vol]Ordere d By: Tejinder Peraza on 09-15-2022 RBC (Bld) [#/Vol] 4.42 10*6/uL 3.60-5.00 [facility] RBC morphologyOrdered By: Dhaval Peraza on 09-15-2022 RBC morphology finding Nom (Bld) N/A [facility] WBC Auto (Bld) [#/Vol]Ordere d By: Tejinder Peraza on 09-15-2022 WBC (Bld) [#/Vol] 7.5 10*3/uL 3.8-11.6 [facility] AFP (TUMOR MARKER)on 022 AFP, Serum, Tumor Marker <1.8 Normal 0.0-4.7 [facility] Comment on above: Result Comment: Soma Electrochemiluminescence Immunoassay (ECLIA) . Values obtained with different assay methods or kits cannot be used interchangeably. Results cannot be interpreted as absolute evidence of the presence or absence of malignant disease. . This test is not interpretable in females. Performed By: #### U MICRO, PREGU, ERUR #### [facility] [address] [place] [address] Dr. Adam Mejía CA 125on 08-06-2022 Cancer Antigen (CA) 125 29.7 U/mL Normal 0.0-38.1 [facility] Comment on above: Result Comment: Soma Electrochemiluminescence Immunoassay (ECLIA) . Values obtained with different assay methods or kits cannot be used interchangeably. Results cannot be interpreted as absolute evidence of the presence or absence of malignant disease. Performed By: #### U MICRO, PREGU, ERUR #### [facility] [address] [address] [address] Adam Mejía CEAon 08-06-2022 CEA 0.9 ng/mL Normal 0.0-4.7 [facility] Comment on above: Result Comment: Nons mokers <3.9 Smokers <5.6 . [employer] [employer] Electrochemiluminescence Immunoassay (ECLIA) . Values obtained with different assay methods or kits cannot be used interchangeably. Results cannot be interpreted as absolute evidence of the presence or absence of malignant disease. Performed By: #### U MICRO PREGU, ERUR #### [facility] [address] [place] [address] Dr. Adam Mejía HCG QUANT TUMOR MARKERon HCG QNT TUMOR MARKER <1 Normal [facility] Comment on above: Result Comment: Fema le (Non-) 0 - 5 (Postmenopausal) 0 - 8 . [employer] Electrochemiluminescence Immunoassay (ECLIA) . The [employer] HCG + beta assay recognizes the holo-hormone, human chorionic gonadotropin (hCG), nicked forms of hCG, the beta-core fragment and the free beta-subunit in human serum and plasma. . Results obtained with different test methods or kits cannot used interchangeably. This assay is intended for the early detection of . The result should not be used for treatment or for diagnostic purposes without confirmation of the diagnosis by another medically established diagnostic product or procedure. . This test was developed and its performance characteristics determined by [employer] It has not been cleared or approved by the Food and Drug Administration for use as a tumor marker. . This test is not interpretable as a tumor marker in females. Performed By: #### H CGTMOR #### [facility] [address] [place] [address] Dr. Adam Mejía LDHon 08-05-2022 LDH 164 U/L Normal 81-234 [facility] Comment on above: Performed By: #### U VERA PREGU, ERUR #### [facility] [address] [id number] Adam Mejía US PELVIS TRANSVAGon 022 US PELVIS TRANSVAG EXAMINATION: US PELV IS TRANSVAG HISTORY: Pelvic and perineal pain COMPARISON: CT abdomen pelvis 04/18/2022, ultrasound pelvis 06/30/2021 TECHNIQUE: Transabdominal and transvaginal sonographic examination. FINDINGS: UTERUS: Slightly heterogeneous and lobular anterior uterine wall suspected secondary to leiomyomas, largest is 2.6 cm. Uterus size: 9.9 x 5.3 x 4.6 cm. ENDOMETRIUM: Normal homogeneous appearance. Endometrial thickness: 11 mm RIGHT OVARY: Normal size and appearance. Duplex Doppler demonstrates normal waveform and flow; resistive index 0.5. Ovary size: 2.9 x 2.2 x 1.5 cm LEFT OVARY: Contains a thick-walled complex 2.0 cm cyst. Duplex Doppler demonstrates normal waveform and flow; resistive index 0.5. Ovary size: 3.9 x 3.3 x 2.4 cm CUL-DE-SAC: Unremarkable. No significant free fluid. BLADDER: Unremarkable. OTHER: None. IMPRESSION: 1. Stable appearance of uterus with several small leiomyomas suspected within anterior uterine wall. 2. Right ovary contains a complex 2.0 cm cyst. Consider follow-up ultrasound in 6 weeks to document regression. Electronically authenticated by: KALPESH FOWLER Date: 2022-07-29 06:26 Normal [facility] PAP ACOG PANEL 2: 30 to 65on 07-10-2022 . . Normal [facility] Comment on above: Result Comment: Perf ormed at: WB Performed By: #### [id number] #### [facility] [address] [address] [address] Adam Mejía Age Gdln ACOG Testing 30-65 Normal [facility] Comment on above: Performed By: #### [id number] #### [facility] [address] [address] [address] Adam Mejía DIAGNOSIS: Comment Normal [facility] Comment on above: Result Comment: NEGA TIVE FOR INTRAEPITHELIAL LESION OR MALIGNANCY. Performed at: WB Performed By: #### [id number] #### [facility] [address] [address] [address] Adam Mejía HPV Aptima Negative Normal Negative [facility] Comment on above: Result Comment: This nucleic acid amplification test detects fourteen high-risk HPV types (16,18,31,33,35,39,45,51,52,56,58,59,66,68) without differentiation. Performed at: =G Performed By: #### [id number] #### [facility] [address] [address] [address] Adam Mejía Methodology: Comment Normal [facility] Comment on above: Result Comment: This liquid based ThinPrep(R) pap test was screened with the use of an image guided system. Performed at: WB Performed By: #### [id number] #### [facility] [address] [place] [address] Dr. Adam Mejía Note: Comment Normal [facility] Comment on above: Result Comment: The Pap smear is a screening test designed to aid in the detection of premalignant and malignant conditions of the uterine cervix. It is not a diagnostic procedure and should not be used as the sole means of detecting cervical cancer. Both false-positive and false-negative reports do occur. . Performed at: WB Performed By: #### [id number] #### [facility] [address] [place] [address] Dr. Adam Mejía Performed by: Comment Normal [facility] Comment on above: Result Comment: Dat [employer] (ASCP) Performed at: WB Performed By: #### [id number] #### [facility] [address] [place] [address] Dr. Adam Mejía Specimen adequacy: Comment Normal [facility] Comment on above: Result Comment: Sati sfactory for evaluation. No endocervical component is identified. Performed at: WB Performed By: #### [id number] #### [facility] [address] [place] [address] Dr. Adam Mejía CHLAMYDIA/GONOCOCCUS HIRAM (SW AB/URINE/PAPon 07-05-2022 Chlamydia trachomatis, HIRAM Negative Normal Negative [facility] Comment on above: Performed By: #### C T/NGNA #### [facility] [address] [place] [address] Dr. Adam Mejía Neisseria gonorrhoeae, HIRAM Negative Normal Negative [facility] Comment on above: Performed By: #### C T/NGNA #### [facility] [address] [place] [address] Dr. Adam Mejía VAGINITIS/VAGINOSIS DNA PROB [place] 07-05-2022 Arti species Positive Abnormal Negative [facility] Comment on above: Performed By: #### V AGINT #### [facility] [address] [place] [address] Dr. Adam Mejía Gardnerella vaginalis Positive Abnormal Negative [facility] Comment on above: Performed By: #### V AGINT #### [facility] [address] [address] [address] Adam Mejía Trichomonas vaginalis Negative Normal Negative [facility] Comment on above: Performed By: #### V AGINT #### [facility] [address] [address] [address] Adam Mejía Activated partial thrombopla stin time (aPTT) in platelet poor plasma by coagulation aOrdered By: Frank Silva on 07-04-2022 aPTT Coag (PPP) [Time] 30.9 s 25.1-36.5 [facility] Albumin [Mass/volume] in Ser um or PlasmaOrdered By: Frank Silva on 07-04-2022 Albumin [Mass/Vol] 3.6 g/dL 3.2-5.5 [facility] Automated erythrocytes count in urine sediment (number/area)Ordered By: Frank Silva on 07-04-2022 RBC Auto (Urine sed) [#/Area] 3-4 [HPF] 0-4 [facility] Automated leukocytes count i n urine sediment (number/area)Ordered By: Frank Silva on 07-04-2022 WBC Auto (Urine sed) [#/Area] 0-1 [HPF] 0-4 [facility] Basophils Auto (Bld) [#/Vol] Ordered By: Frank Silva on 07-04-2022 Basophils (Bld) [#/Vol] 0.0 10*3/uL 0.0-0.2 [facility] Basophils/100 WBC Auto (Bld) Ordered By: Frank Silva on 07-04-2022 Basophils/100 WBC (Bld) 0.4 % . [facility] Bilirubin Test strip Ql (U)O rdered By: Frank Silva on 07-04-2022 Bilirubin Ql (U) Negative Negative [facility] Color Auto (U)Ordered By: Godfrey Silva on 07-04-2022 Color (U) Yellow Yellow [facility] Creatinine and Glomerular fi ltration rate.predicted panel (S/P/Bld)Ordered By: Frank Silva on 07-04-2022 Creatinine [Mass/Vol] 0.80 mg/dL 0.44-1.03 [facility] Direct bilirubin measurement Ordered By: Frank Silva on 07-04-2022 Bilirubin.direct [Mass/Vol] mg/dL 0.0-0.4 [facility] Eosinophils Auto (Bld) [#/Vo l]Ordered By: Frank Silva on 07-04-2022 Eosinophils (Bld) [#/Vol] 0.1 10*3/uL 0.0-0.45 [facility] Eosinophils/100 WBC Auto (Bl d)Ordered By: Frank Silva on 07-04-2022 Eosinophils/100 WBC (Bld) 1.2 % . [facility] Erythrocyte distribution wid th Auto (RBC) [Ratio]Ordered By: Frank Silva on 07-04-2022 Erythrocyte distribution width (RBC) [Ratio] 14.9 % 11.9-15.3 [facility] Estimated glomerular filtrat ion rate (GFR) non- AmericanOrdered By: Frank Silva on 07-04-2022 GFR/1.73 sq M.predicted among non-blacks MDRD (S/P/Bld) [Vol rate/Area] > 60 mL/Min [facility] Globulin Calc (S) [Mass/Vol] Ordered By: Frank Silva on 07-04-2022 Globulin (S) [Mass/Vol] 3.3 g/dL [facility] HCG ( test) IA.rapi d Ql (U)Ordered By: Frank Silva on 07-04-2022 HCG ( test) Ql (U) Negative [facility] Hematocrit Auto (Bld) [Volum e fraction]Ordered By: Frank Silva on 07-04-2022 Hematocrit (Bld) [Volume fraction] 32.0 % 34.0-46.4 [facility] Hemoglobin [Mass/volume] in BloodOrdered By: Frank Silva on 07-04-2022 Hemoglobin (Bld) [Mass/Vol] 9.7 g/dL 11.8-15.4 [facility] Ketones Auto test strip (U) [Mass/Vol]Ordered By: Frank Silva on 07-04-2022 Ketones (U) [Mass/Vol] Trace Negative [facility] - Chemistry and C hemistry - challengeOrdered By: Frank Silva on 07-04-2022 Lipase [Catalytic activity/Vol] 43.0 U/L 22-51 [facility] - CoagulationOrde red By: Frank Silva on 07-04-2022 PT Coag (PPP) [Time] 13.3 s 9.0-12.9 [facility] - Hematology and Cell countsOrdered By: Frank Silva on 07-04-2022 Nucleated RBC/100 WBC (Bld) [Ratio] 0.1 % 0-0.5 [facility] - UrinalysisOrder ed By: Frank Silva on 07-04-2022 Hyaline casts LM Ql (Urine sed) 0-8 [LPF] 0-8 [facility] Leukocytes [#/volume] in Blo od by Automated countOrdered By: Frank Silva on 07-04-2022 WBC (Bld) [#/Vol] 8.7 10*3/uL 4.5-11.0 [facility] Lymphocytes Auto (Bld) [#/Vo l]Ordered By: Frank Silva on 07-04-2022 Lymphocytes (Bld) [#/Vol] 1.2 10*3/uL 1.00-4.8 [facility] Lymphocytes/100 WBC Auto (Bl d)Ordered By: Frank Silva on 07-04-2022 Lymphocytes/100 WBC (Bld) 14.2 % . [facility] MCH Auto (RBC) [Entitic mass ]Ordered By: Frank Silva on 07-04-2022 MCH (RBC) [Entitic mass] 21.4 pg 24.7-34.3 [facility] MCHC Auto (RBC) [Mass/Vol]Or dered By: Frank Silva on 07-04-2022 MCHC (RBC) [Mass/Vol] 30.4 g/dL 32.0-35.0 [facility] MCV Auto (RBC) [Entitic vol] Ordered By: Frank Silva on 07-04-2022 MCV (RBC) [Entitic vol] 70.4 fL 80-100 [facility] Monocytes Auto (Bld) [#/Vol] Ordered By: Frank Silva on 07-04-2022 Monocytes (Bld) [#/Vol] 0.4 10*3/uL 0.0-0.8 [facility] Monocytes/100 WBC Auto (Bld) Ordered By: Frank Silva on 07-04-2022 Monocytes/100 WBC (Bld) 5.0 % . [facility] Neutrophils Auto (Bld) [#/Vo l]Ordered By: Frank Silva on 07-04-2022 Neutrophils (Bld) [#/Vol] 6.9 10*3/uL 1.8-7.7 [facility] Neutrophils/100 WBC Auto (Bl d)Ordered By: Frank Silva on 07-04-2022 Neutrophils/100 WBC (Bld) 79.2 % . [facility] Nitrite Test strip Ql (U)Ord ered By: Frank Silva on 07-04-2022 Nitrite Ql (U) Negative Negative [facility] No Panel InformationOrdered By: Frank Silva on 07-04-2022 Estimated GFR () > 60 mL/Min [facility] Comment on above: GFR estimated refere nce range: According to KDOQI guidelines, <60 ml/min/1.73m2 is sufficient to diagnose a patient with chronic kidney disease. Pharmacy Creatinine Clearance (Chem 98.82 [facility] Platelet mean volume Auto (B ld) [Entitic vol]Ordered By: Frank Silva on 07-04-2022 Platelet mean volume (Bld) [Entitic vol] 9.5 fL 6.3-10.7 [facility] Platelet poor plasma interna tional normalized ratio (INR) by coagulation assay (relatOrdered By: Frank Silva on 07-04-2022 INR Coag (PPP) [Relative time] 1.2 {INR} [facility] Comment on above: INR Therapeutic Rang e A) Pre- and Peroperative OAT started two weeks before surgery. NOT HIP SURGERY: 1.5 - 2.5 HIP SURGERY: 2 - 3B) Primary and secondary prevention of venous THROMBOSIS: 2 - 3C) Active venous thrombosis, pulmonary embolismand prevention of recurrent venous thrombosis: 2 - 3D) Prevention of arterial thromboembolismincluding patients with mechanical heart valves: 3 - 4.5 Platelets Auto (Bld) [#/Vol] Ordered By: Frank Silva on 07-04-2022 Platelets (Bld) [#/Vol] 258 10*3/uL 150-450 [facility] Protein Auto test strip (U) [Mass/Vol]Ordered By: Frank Silva on 07-04-2022 Protein (U) [Mass/Vol] Negative Negative [facility] Protein [Mass/volume] in Ser um or PlasmaOrdered By: Frank Sivla on 07-04-2022 Protein [Mass/Vol] 6.9 g/dL 6.1-7.9 [facility] RBC Auto (Bld) [#/Vol]Ordere d By: Frank Silva on 07-04-2022 RBC (Bld) [#/Vol] 4.54 10*6/uL 3.60-5.00 [facility] Serum or plasma alanine keene otransferase measurement without P-5'-P (enzymatic activiOrdered By: Frank Silva on 07-04-2022 ALT No additional P-5'-P [Catalytic activity/Vol] 15 U/L [facility] Serum or plasma albumin/glob ulin mass ratioOrdered By: Frank Silva on 07-04-2022 Albumin/Globulin [Mass ratio] 1.1 {ratio} [facility] Serum or plasma alkaline jared sphatase measurement (enzymatic activity/volume)Ordered By: Frank Silva on 07-04-2022 ALP [Catalytic activity/Vol] 50 U/L 32-92 [facility] Serum or plasma anion gap de terminationOrdered By: Frank Silva on 07-04-2022 Anion gap [Moles/Vol] 11.7 mmol/L 6.0-15.0 [facility] Serum or plasma aspartate am inotransferase measurement (enzymatic activity/volume)Ordered By: Frank Silva on 07-04-2022 AST [Catalytic activity/Vol] 14 U/L [facility] Serum or plasma calcium marychuy urement (mass/volume)Ordered By: Frank Silva on 07-04-2022 Calcium [Mass/Vol] 8.9 mg/dL 8.2-10.2 [facility] Serum or plasma chloride nemo surement (moles/volume)Ordered By: Frank Silva on 07-04-2022 Chloride [Moles/Vol] 105 mmol/L 95-114 [facility] Serum or plasma glucose marychuy urement (mass/volume)Ordered By: Frank Silva on 07-04-2022 Glucose [Mass/Vol] 97 mg/dL 70-100 [facility] Comment on above: ADA recommended refe rence rangeRandom Glucose Reference Range is dependent on time and content of last meal. Glucose of more than 200 mg/dL in a nonstressed, ambulatory subject supports the diagnosis of Diabetes Mellitus. Serum or plasma non-glucuron idated bilirubin measurement (mass/volume)Ordered By: Frank Silva on 07-04-2022 Bilirubin.indirect [Mass/Vol] TNP [facility] Comment on above: Test not performed Serum or plasma potassium me asurement (moles/volume)Ordered By: Frank Silva on 07-04-2022 Potassium [Moles/Vol] 3.7 mmol/L 3.5-5.1 [facility] Serum or plasma sodium measu rement (moles/volume)Ordered By: Frank Silva on 07-04-2022 Sodium [Moles/Vol] 136 mmol/L 136-146 [facility] Serum or plasma total biliru bin measurement (mass/volume)Ordered By: Frank Silva on 07-04-2022 Bilirubin [Mass/Vol] 0.5 mg/dL 0.3-1.2 [facility] Serum or plasma total carbon dioxide measurement (moles/volume)Ordered By: Frank Silva on 07-04-2022 CO2 [Moles/Vol] 23.0 mmol/L 22.0-30.0 [facility] Serum or plasma urea nitroge n measurement (mass/volume)Ordered By: Frank Silva on 07-04-2022 Urea nitrogen [Mass/Vol] 6 mg/dL 9-23 [facility] Specific gravity Auto test s trip (U) [Rel density]Ordered By: Frank Silva on 07-04-2022 Specific gravity (U) [Rel density] 1.010 1.001-1.03 0 [facility] Squamous epithelial cells de tection in urine sediment by light microscopyOrdered By: Frank Silva on 07-04-2022 Epithelial cells.squamous LM Ql (Urine sed) 0-1 [HPF] 0-2 [facility] Urine bacteria detection by automated methodOrdered By: Frank Silva on 07-04-2022 Bacteria Auto Ql (U) None seen None Seen [facility] Urine clarity by refractomet ry automatedOrdered By: Frank Silva on 07-04-2022 Clarity Refractometry automated (U) Clear Clear [facility] Urine glucose measurement by automated test strip (mass/volume)Ordered By: Frank Silva on 07-04-2022 Glucose Auto test strip (U) [Mass/Vol] Normal mg/dL Normal [facility] Urine hemoglobin detection b y automated test stripOrdered By: Frank Silva on 07-04-2022 Hemoglobin Auto test strip Ql (U) Trace Negative [facility] Urine leukocyte esterase det ection by automated test stripOrdered By: Frank Silva on 07-04-2022 Leukocyte esterase Auto test strip Ql (U) 1+ Negative [facility] Urobilinogen Auto test strip (U) [Mass/Vol]Ordered By: Frank Silva on 07-04-2022 Urobilinogen (U) [Mass/Vol] Normal mg/dL Normal [facility] pH Auto test strip (U)Ordere d By: Frank Silva on 07-04-2022 pH (U) 6.5 [pH] 5.0-9.0 [facility] Activated partial thrombopla stin time (aPTT) in platelet poor plasma by coagulation aOrdered By: Marvin Serrano on 06-01-2022 aPTT Coag (PPP) [Time] 30.4 s 25.1-36.5 [facility] Basophils Auto (Bld) [#/Vol] Ordered By: Marvin Serrano on 06-01-2022 Basophils (Bld) [#/Vol] 0.1 10*3/uL 0.0-0.2 [facility] Basophils/100 WBC Auto (Bld) Ordered By: Marvin Serrano on 06-01-2022 Basophils/100 WBC (Bld) 1.1 % . [facility] Bilirubin Test strip Ql (U)O rdered By: Marvin Serrano on 06-01-2022 Bilirubin Ql (U) Negative Negative [facility] Blood hemoglobin measurement (mass/volume)Ordered By: Marvin Serrano on 06-01-2022 Hemoglobin (Bld) [Mass/Vol] 10.1 g/dL 11.8-15.4 [facility] Blood leukocytes automated c ount (number/volume)Ordered By: Marvin Serrano on 06-01-2022 WBC (Bld) [#/Vol] 7.6 10*3/uL 4.5-11.0 [facility] Body fluid albumin measureme nt (mass/volume)Ordered By: Marvin Serrano on 06-01-2022 Albumin (Body fld) [Mass/Vol] 3.7 g/dL 3.2-5.5 [facility] Color Auto (U)Ordered By: Dane Serrano on 06-01-2022 Color (U) Yellow Yellow [facility] Creatinine and Glomerular fi ltration rate.predicted panel (S/P/Bld)Ordered By: Marvin Serrano on 06-01-2022 Creatinine [Mass/Vol] 0.82 mg/dL 0.44-1.03 [facility] Eosinophils Auto (Bld) [#/Vo l]Ordered By: Marvin Serrano on 06-01-2022 Eosinophils (Bld) [#/Vol] 0.2 10*3/uL 0.0-0.45 [facility] Eosinophils/100 WBC Auto (Bl d)Ordered By: Marvin Serrano on 06-01-2022 Eosinophils/100 WBC (Bld) 2.4 % . [facility] Erythrocyte distribution wid th Auto (RBC) [Ratio]Ordered By: Marvin Serrano on 06-01-2022 Erythrocyte distribution width (RBC) [Ratio] 14.3 % 11.9-15.3 [facility] Estimated glomerular filtrat ion rate (GFR) non- AmericanOrdered By: Marvin Serrano on 06-01-2022 GFR/1.73 sq M.predicted among non-blacks MDRD (S/P/Bld) [Vol rate/Area] > 60 mL/Min [facility] Globulin Calc (S) [Mass/Vol] Ordered By: Marvin Serrano on 06-01-2022 Globulin (S) [Mass/Vol] 3.4 g/dL [facility] HCG ( test) IA.rapi d Ql (U)Ordered By: Marvin Serrano on 06-01-2022 HCG ( test) Ql (U) Negative [facility] Hematocrit Auto (Bld) [Volum e fraction]Ordered By: Marvin Serrano on 06-01-2022 Hematocrit (Bld) [Volume fraction] 32.2 % 34.0-46.4 [facility] Ketones Auto test strip (U) [Mass/Vol]Ordered By: Marvin Serrano on 06-01-2022 Ketones (U) [Mass/Vol] Negative Negative Fi [facility] - CoagulationOrde red By: Marvin Serrano on 06-01-2022 PT Coag (PPP) [Time] 12.4 s 9.0-12.9 [facility] Laboratory - Hematology and Cell countsOrdered By: Marvin Serrano on 06-01-2022 Nucleated RBC/100 WBC (Bld) [Ratio] 0.1 % 0-0.5 [facility] Lymphocytes Auto (Bld) [#/Vo l]Ordered By: Marvin Serrano on 06-01-2022 Lymphocytes (Bld) [#/Vol] 2.7 10*3/uL 1.00-4.8 [facility] Lymphocytes/100 WBC Auto (Bl d)Ordered By: Marvin Serrano on 06-01-2022 Lymphocytes/100 WBC (Bld) 35.8 % . [facility] MCH Auto (RBC) [Entitic mass ]Ordered By: Marvin Serrano on 06-01-2022 MCH (RBC) [Entitic mass] 22.0 pg 24.7-34.3 [facility] MCHC Auto (RBC) [Mass/Vol]Or dered By: Marvin Serrano on 06-01-2022 MCHC (RBC) [Mass/Vol] 31.3 g/dL 32.0-35.0 [facility] MCV Auto (RBC) [Entitic vol] Ordered By: Marvin Serrano on 06-01-2022 MCV (RBC) [Entitic vol] 70.4 fL 80-100 [facility] Monocytes Auto (Bld) [#/Vol] Ordered By: Marvin Serrano on 06-01-2022 Monocytes (Bld) [#/Vol] 0.5 10*3/uL 0.0-0.8 [facility] Monocytes/100 WBC Auto (Bld) Ordered By: Marvin Serrano on 06-01-2022 Monocytes/100 WBC (Bld) 7.1 % . [facility] Neutrophils Auto (Bld) [#/Vo l]Ordered By: Marvin Serrano on 06-01-2022 Neutrophils (Bld) [#/Vol] 4.1 10*3/uL 1.8-7.7 [facility] Neutrophils/100 WBC Auto (Bl d)Ordered By: Marvin Serrano on 06-01-2022 Neutrophils/100 WBC (Bld) 53.6 % . [facility] Nitrite Test strip Ql (U)Ord ered By: Marvin Serrano on 06-01-2022 Nitrite Ql (U) Negative Negative [facility] No Panel InformationOrdered By: Marvin Serrano on 06-01-2022 Estimated GFR () > 60 mL/Min [facility] Comment on above: GFR estimated refere nce range: According to KDOQI guidelines, <60 ml/min/1.73m2 is sufficient to diagnose a patient with chronic kidney disease. Pharmacy Creatinine Clearance (Chem 97.22 [facility] Platelet mean volume Auto (B ld) [Entitic vol]Ordered By: Marvin Serrano on 06-01-2022 Platelet mean volume (Bld) [Entitic vol] 9.9 fL 6.3-10.7 [facility] Platelet poor plasma interna tional normalized ratio (INR) by coagulation assay (relatOrdered By: Marvin Serrano on 06-01-2022 INR Coag (PPP) [Relative time] 1.1 {INR} [facility] Comment on above: INR Therapeutic Rang e A) Pre- and Peroperative OAT started two weeks before surgery. NOT HIP SURGERY: 1.5 - 2.5 HIP SURGERY: 2 - 3 B) Primary and secondary prevention of venous THROMBOSIS: 2 - 3 C) Active venous thrombosis, pulmonary embolism and prevention of recurrent venous thrombosis: 2 - 3 D) Prevention of arterial thromboembolism including patients with mechanical heart valves: 3 - 4.5 INR Therapeutic Rang e A) Pre- and Peroperative OAT started two weeks before surgery. NOT HIP SURGERY: 1.5 - 2.5 HIP SURGERY: 2 - 3B) Primary and secondary prevention of venous THROMBOSIS: 2 - 3C) Active venous thrombosis, pulmonary embolismand prevention of recurrent venous thrombosis: 2 - 3D) Prevention of arterial thromboembolismincluding patients with mechanical heart valves: 3 - 4.5 Platelets Auto (Bld) [#/Vol] Ordered By: Marvin Serrano on 06-01-2022 Platelets (Bld) [#/Vol] 218 10*3/uL 150-450 [facility] Protein Auto test strip (U) [Mass/Vol]Ordered By: Marvin Serrano on 06-01-2022 Protein (U) [Mass/Vol] Negative Negative Fi [facility] Protein [Mass/volume] in Ser um or PlasmaOrdered By: Marvin Serrano on 06-01-2022 Protein [Mass/Vol] 7.1 g/dL 6.1-7.9 [facility] RBC Auto (Bld) [#/Vol]Ordere d By: Marvin Serrano on 06-01-2022 RBC (Bld) [#/Vol] 4.57 10*6/uL 3.60-5.00 [facility] Serum or plasma alanine keene otransferase measurement without P-5'-P (enzymatic activiOrdered By: Marvin Serrano on 06-01-2022 ALT No additional P-5'-P [Catalytic activity/Vol] 12 U/L 10-60 [facility] Serum or plasma albumin/glob ulin mass ratioOrdered By: Marvin Serrano on 06-01-2022 Albumin/Globulin [Mass ratio] 1.1 {ratio} [facility] Serum or plasma alkaline jared sphatase measurement (enzymatic activity/volume)Ordered By: Marvin Serrano on 06-01-2022 ALP [Catalytic activity/Vol] 46 U/L 32-92 [facility] Serum or plasma anion gap de terminationOrdered By: Marvin Serrano on 06-01-2022 Anion gap [Moles/Vol] 15.3 mmol/L 6.0-15.[address] [facility] Serum or plasma aspartate am inotransferase measurement (enzymatic activity/volume)Ordered By: Marvin Serrano on 06-01-2022 AST [Catalytic activity/Vol] 13 U/L 10-42 [facility] Serum or plasma calcium marychuy urement (mass/volume)Ordered By: Marvin Serrano on 06-01-2022 Calcium [Mass/Vol] 9.1 mg/dL 8.2-10.2 [facility] Serum or plasma chloride nemo surement (moles/volume)Ordered By: Marvin Serrano on 06-01-2022 Chloride [Moles/Vol] 103 mmol/L 95-114 [facility] Serum or plasma glucose marychuy urement (mass/volume)Ordered By: Marvin Serrano on 06-01-2022 Glucose [Mass/Vol] 113 mg/dL 70-100 [facility] Comment on above: ADA recommended refe rence range Random Glucose Reference Range is dependent on time and content of last meal. Glucose of more than 200 mg/dL in a nonstressed, ambulatory subject supports the diagnosis of Diabetes Mellitus. ADA recommended refe rence rangeRandom Glucose Reference Range is dependent on time and content of last meal. Glucose of more than 200 mg/dL in a nonstressed, ambulatory subject supports the diagnosis of Diabetes Mellitus. Serum or plasma potassium me asurement (moles/volume)Ordered By: Marvin Serrano on 06-01-2022 Potassium [Moles/Vol] 3.0 mmol/L 3.5-5.1 [facility] Serum or plasma sodium measu rement (moles/volume)Ordered By: Marvin Serrano on 06-01-2022 Sodium [Moles/Vol] 137 mmol/L 136-146 [facility] Serum or plasma total biliru bin measurement (mass/volume)Ordered By: Marvin Serrano on 06-01-2022 Bilirubin [Mass/Vol] 0.4 mg/dL 0.3-1.2 [facility] Serum or plasma total carbon dioxide measurement (moles/volume)Ordered By: Marvin Serrano on 06-01-2022 CO2 [Moles/Vol] 21.7 mmol/L 22.0-30.0 [facility] Serum or plasma urea nitroge n measurement (mass/volume)Ordered By: Marvin Serrano on 06-01-2022 Urea nitrogen [Mass/Vol] 11 mg/dL 9-23 [facility] Specific gravity Auto test s trip (U) [Rel density]Ordered By: Marvin Serrano on 06-01-2022 Specific gravity (U) [Rel density] 1.003 1.001-1.03 0 [facility] Urine clarity by refractomet ry automatedOrdered By: Marvin Serrano on 06-01-2022 Clarity Refractometry automated (U) Clear Clear [facility] Urine glucose measurement by automated test strip (mass/volume)Ordered By: Marvin Serrano on 06-01-2022 Glucose Auto test strip (U) [Mass/Vol] Normal mg/dL Normal [facility] Urine hemoglobin detection b y automated test stripOrdered By: Marvin Serrano on 06-01-2022 Hemoglobin Auto test strip Ql (U) Negative Negative [facility] Urine leukocyte esterase det ection by automated test stripOrdered By: Marvin Serrano on 06-01-2022 Leukocyte esterase Auto test strip Ql (U) Negative Negative [facility] Urobilinogen Auto test strip (U) [Mass/Vol]Ordered By: Marvin Serrano on 06-01-2022 Urobilinogen (U) [Mass/Vol] Normal mg/dL Normal [facility] pH Auto test strip (U)Ordere d By: Marvin Serrano on 06-01-2022 pH (U) 7.0 [pH] 5.0-9.0 [facility] Office Visit (Oncology Surge ry)on 04-21-2022 Follow-up visit Diagnoses/Problems Assessed Endometrioma (617.9) (N80.9) Abdominal wall mass (789.30) (R22.2) Patient Discussion/Summary Mrs. Fonseca is a 31-year-old female presenting with an endometrioma of the left lower abdominal wall. This is about 3 and half centimeters in greatest dimension at this time and tender. She is limited in her activities as a result of this and is desiring to have this treated. The patient understands that this tumor may be 1 deposit of many that could be intra-abdominal although we do not see any other intra-abdominal tumors on imaging. Nonetheless, resection of this mass may not resolve her abdominal discomfort and dyspareunia. Additionally, due to extension of this mass into the rectus muscle there may be a abdominal wall reconstruction that would be needed. Mesh would often be required for this although this would be determined at the time of the operation. Surgery 04/03/2022 - Radical resection left abdominal wall mass and associated rectus fascia Pathology -endometrioma [ ] I discussed the pathology result with the patient. She understands the there is no need for further surgical management. I did not have the imaging available at the time of our visit however it has since been reviewed and there are no surgical concerns. I also counseled her that any abdominal discomfort issues should be relayed to me by phone prior to any emergency department visits. [ ] I reiterated the need for her to return to her [facility] [employer] [facility] Dr. Pendleton for discussion of ongoing treatment. She brought up the option for Hysterectomy and Oophorectomy to prevent endometriosis related pains. Mrs. Fonseac was told clearly to call Dr. Pendleton's office for an appointment The patient asked very appropriate questions that were answered to the best of my ability with the current information at hand. She knows to call with any questions or concerns that arise in the interim A total of 25 minutes was spent reviewing the patient's outside imaging and talking with the patient. About 12 minutes of time was spent in direct communication on the phone. Chief Complaint Endometrioma of prior scar History of Present IllnessMs. Fonseca is a 31-year-old female presenting with a painful and growing left lower abdominal wall mass. She was referred by Dr. Malcolm Pendleton for evaluation and management of this tumor. The patient reports that the mass has been noted for some time however it seems to have grown in size. It is now significantly painful and seems to become more painful during menstruation. She also feels like she has a decreased energy level. She takes ibuprofen for the pain but only gets some relief with this. She reports abdominal discomfort since 2017. Her last was about 2 years ago at which time she had her second . She also reports dyspareunia. She does report that she may consider having more kids although due to the difficulty of her prior pregnancies this has not been determined. She has had imaging including a CT scan and ultrasounds that have demonstrated a 3.5 x 1.7 x 3.3 cm soft tissue density in the left paracentral ventral abdominal fat abutting the underlying fascia and abdominal rectus muscle. Notably the patient also has a 2 cm umbilical hernia. Biopsy of this mass demonstrating findings consistent with an endometrioma. Surgery 04/03/2022 - Radical resection left abdominal wall mass and associated rectus fascia Pathology -endometrioma 04/21/2022?virtual postoperative visit. The patient reports that she is doing better however she has presented to the emergency room twice since her last visit with me. I was unaware of these presentations. She has received Imaging at both events. Review of her imaging occurred after the appointment once the images were made available. This did not show any evidence of hernia or fluid collection in the surgical site. Patient does have some indurated tissues in the site of scar formation. Nonetheless there was no clear evidence for acute intra-abdominal concern either. ROS: The patient has good performance status and is active daily. Cardiac: No chest pain, palpitations or heart attacks Pulmonary: No asthma, bronchitis, or COPD HEENT: No sinus or dental issues. GI: Abdominal discomfort seems to be cyclical. Pain after surgery : Dysmenorrhea. Dyspareunia. no urinary complaints Musculoskeletal: No limitations to ROM or strength Skin: No prior skin lesions or concerns Heme: No bleeding or thrombosis issues Lymph: No swollen lymph glands Psych: No reported anxiety or depression All other systems reviewed and negative Physical exam: Unable to perform a physical exam due to the telephone nature of this visit. Active Problems Problems Abdominal wall mass (679.30) (R22.2) Allergies Medication albuterol Recorded By: Kim Isaac; 03/24/2022 11:45:28 AM Current Meds Medication NameInstructionReason Ondansetron 8 MG Oral Tablet DisintegratingTAKE 1 TABLET Every 8 hoursAbdominal wall (more content not included)... Normal [facility] CT ABD/PELV W CONon 04-19-20 CT ABD/PELV W CON EXAMINATION: CT ABD/ PELV W CON HISTORY: Pain. COMPARISON: CT abdomen and pelvis examination dated 04/11/2022. TECHNIQUE: Axial CT images through the abdomen and pelvis were obtained after the intravenous administration of 100 mL Omnipaque 300 contrast. Coronal and sagittal reformats were obtained. Dose reduction techniques were achieved by using automated exposure control and/or adjustment of mA and/or kV according to patient size and/or use of iterative reconstruction technique. FINDINGS: The visualized portions of the lung bases are clear. Abdomen: There are a few subcentimeter hypodensities in the liver which are too small to characterize by CT size criteria. Otherwise, the liver and spleen enhance homogeneously without focal lesion. There is no intra or extrahepatic biliary duct dilatation. The gallbladder is unremarkable. The pancreas, adrenal glands, kidneys, and bowel loops, including the appendix, are unremarkable. There is no mesenteric or retroperitoneal lymphadenopathy. There is a small fat-containing umbilical hernia. There is skin thickening with underlying edema involving the lower ventral abdominal/pelvic subcutaneous tissues, not significantly changed compared to prior examination. Pelvis: The bladder and rectum are unremarkable. There is no iliac or inguinal lymphadenopathy. The uterus is present. There is a collapsing right ovarian hemorrhagic cyst with a small amount of free fluid in the pelvis. The left ovary appears within normal limits by CT. Bone windows show no aggressive osseous lesions. IMPRESSION: 1. Mild skin thickening with underlying subcutaneous edema involving the ventral lower abdominal/pelvic soft tissues which appears similar compared to prior examination. No evidence of an abscess or soft tissue air is seen. 2. Collapsing right ovarian hemorrhagic cyst with a small amount of free fluid in pelvis. 3. Normal appendix. Electronically authenticated by: Lenny TANNER Date: 2022-04-18 23:01 Normal [facility] ER URINE PROFILEon 2 Bilirubin Ql (U) Negative Normal NEGATIVE [facility] Comment on above: Performed By: #### U MICRO, PREGU, ERUR #### [facility] [address] [place] [address] Dr. Adam Mejía Clarity (U) CLEAR Normal CLEAR [facility] Comment on above: Performed By: #### U MICRO, PREGU, ERUR #### [facility] [address] [address] [address] Adam Mejía Color (U) YELLOW Normal YELLOW [facility] Comment on above: Performed By: #### U MICRO, PREGU, ERUR #### [facility] [address] [place] [address] Dr. Adam Mejía ERUAHD A micrscopic examina tion will be performed if indicated. Normal [facility] Comment on above: Performed By: #### U MICRO, PREGU, ERUR #### [facility] [address] [address] [address] Adam Mejía Glucose Ql (U) Negative Normal NEGATIVE [facility] Comment on above: Performed By: #### U MICRO, PREGU, ERUR #### [facility] [address] [place] [address] Dr. Adam Mejía Hemoglobin Ql (U) SMALL Abnormal NEGATIVE [facility] Comment on above: Performed By: #### U MICRO, PREGU, ERUR #### [facility] [address] [address] [address] Adam Mejía Ketones Ql (U) >=80 Abnormal NEGATIVE [facility] Comment on above: Performed By: #### U MICRO, PREGU, ERUR #### [facility] [address] [place] [address] Dr. Adam Mejía LEUKOCYTES Negative Normal NEGATIVE [facility] Comment on above: Performed By: #### U MICRO, PREGU, ERUR #### [facility] [address] [address] [address] Adam Mejía Nitrite Ql (U) Negative Normal NEGATIVE [facility] Comment on above: Performed By: #### U MICRO, PREGU, ERUR #### [facility] [address] [place] [address] Dr. Adam Mejía pH (U) 6.5 [pH] Normal 5-9 [facility] Comment on above: Performed By: #### U MICRO, PREGU, ERUR #### [facility] [address] [address] [address] Adam Mejía SPEC GRAVITY 1.015 Normal 1.005-<=1. 025 [facility] Comment on above: Performed By: #### U MICRO, PREGU, ERUR #### [facility] [address] [address] [address] Adam Mejía UA PROTEIN Negative Normal NEGATIVE/ TRACE [facility] Comment on above: Performed By: #### U MICRO, PREGU, ERUR #### [facility] [address] [address] [address] Adam Mejía UR MICRO IND INDICATED Normal [facility] Comment on above: Performed By: #### U MICRO, PREGU, ERUR #### [facility] [address] [address] [address] Adam Mejía Urobilinogen Qn (U) 0.2 {Brinda'U}/dL Normal 0.2 - 1. 0 [facility] Comment on above: Performed By: #### U MICRO, PREGU, ERUR #### [facility] [address] [place] [address] Dr. Adam Mjeía URon 04-18-2022 , QUAL Negative Normal NEGATIVE [facility] Comment on above: Performed By: #### U MICRO, PREGU, ERUR #### [facility] [address] [address] [address] Adam Mejía URINE MICROSCOPIC ONLYon BACTERIA TRACE Abnormal NONE SEEN [facility] Comment on above: Performed By: #### U MICRO, PREGU, ERUR #### [facility] [address] [address] [address] Adam Mejía Bacteria identified Cx Nom (U) NOT INDICATED Normal [facility] Comment on above: Performed By: #### U MICRO, PREGU, ERUR #### [facility] [address] [place] [address] Dr. Adam eMjía CAST NONE SEEN Normal NONE SEEN [facility] Comment on above: Performed By: #### U MICRO, PREGU, ERUR #### [facility] [address] [place] [address] Dr. Adam Mejía Crystals LM Nom (Urine sed) NONE SEEN Normal NONE SEEN [facility] Comment on above: Performed By: #### U MICRO, PREGU, ERUR #### [facility] [address] [place] [address] Dr. Adam Mejía Epithelial cells LM Ql (Urine sed) FEW Abnormal NONE SEEN /RARE [facility] Comment on above: Performed By: #### U MICRO, PREGU, ERUR #### [facility] [address] [place] [address] Dr. Adam Mejía MUCOUS NONE SEEN Normal NONE SEEN [facility] Comment on above: Performed By: #### U MICRO, PREGU, ERUR #### [facility] [address] [address] [address] Adam Mejía RBC 0-2 Normal 0-2 [facility] Comment on above: Performed By: #### U MICRO, PREGU, ERUR #### [facility] [address] [place] [address] Dr. Adam Mejía WBC 0-2 Abnormal NONE SEEN [facility] Comment on above: Performed By: #### U MICRO, PREGU, ERUR #### [facility] [address] [address] [address] Adam Mejía Body fluid albumin measureme nt (mass/volume)Ordered By: Yudelka Lopez on 04-14-2022 Albumin (Body fld) [Mass/Vol] 3.9 g/dL 3.2-5.5 [facility] Creatinine and Glomerular fi ltration rate.predicted panel (S/P/Bld)Ordered By: Yudelka Lopez on 04-14-2022 Creatinine [Mass/Vol] 0.77 mg/dL 0.44-1.03 [facility] Estimated glomerular filtrat ion rate (GFR) non- AmericanOrdered By: Yudelka Lopze on 04-14-2022 GFR/1.73 sq M.predicted among non-blacks MDRD (S/P/Bld) [Vol rate/Area] > 60 mL/Min [facility] Globulin Calc (S) [Mass/Vol] Ordered By: Yudelka Lopez on 04-14-2022 Globulin (S) [Mass/Vol] 3.0 g/dL [facility] No Panel InformationOrdered By: Yudelka Lopez on 04-14-2022 Estimated GFR () > 60 mL/Min [facility] Comment on above: GFR estimated refere nce range: According to KDOQI guidelines, <60 ml/min/1.73m2 is sufficient to diagnose a patient with chronic kidney disease. Pharmacy Creatinine Clearance (Chem N/A [facility] Protein [Mass/volume] in Ser um or PlasmaOrdered By: Yudelka Lopez on 04-14-2022 Protein [Mass/Vol] 6.9 g/dL 6.1-7.9 [facility] Serum or plasma alanine keene otransferase measurement without P-5'-P (enzymatic activiOrdered By: Yudelka Lopez on 04-14-2022 ALT No additional P-5'-P [Catalytic activity/Vol] 13 U/L 10-60 [facility] Serum or plasma albumin/glob ulin mass ratioOrdered By: Yudelka Lopez on 04-14-2022 Albumin/Globulin [Mass ratio] 1.3 {ratio} [facility] Serum or plasma alkaline jared sphatase measurement (enzymatic activity/volume)Ordered By: Yudelka Lopez on 04-14-2022 ALP [Catalytic activity/Vol] 44 U/L 32-92 [facility] Serum or plasma aspartate am inotransferase measurement (enzymatic activity/volume)Ordered By: Yudelka Lopez on 04-14-2022 AST [Catalytic activity/Vol] 14 U/L 10-42 [facility] Serum or plasma calcium marychuy urement (mass/volume)Ordered By: Yudelka Lopez on 04-14-2022 Calcium [Mass/Vol] 9.5 mg/dL 8.2-10.2 [facility] Serum or plasma chloride nemo surement (moles/volume)Ordered By: uYdelka Lopez on 04-14-2022 Chloride [Moles/Vol] 104 mmol/L 95-114 [facility] Serum or plasma glucose marychuy urement (mass/volume)Ordered By: Yudelka Lopez on 04-14-2022 Glucose [Mass/Vol] 85 mg/dL 70-100 [facility] Comment on above: ADA recommended refe rence range Random Glucose Reference Range is dependent on time and content of last meal. Glucose of more than 200 mg/dL in a nonstressed, ambulatory subject supports the diagnosis of Diabetes Mellitus. ADA recommended refe rence rangeRandom Glucose Reference Range is dependent on time and content of last meal. Glucose of more than 200 mg/dL in a nonstressed, ambulatory subject supports the diagnosis of Diabetes Mellitus. Serum or plasma potassium me asurement (moles/volume)Ordered By: Yudelka Lopez on 04-14-2022 Potassium [Moles/Vol] 4.2 mmol/L 3.5-5.1 [facility] Serum or plasma sodium measu rement (moles/volume)Ordered By: Yudelka Loepz on 04-14-2022 Sodium [Moles/Vol] 136 mmol/L 136-146 [facility] Serum or plasma total biliru bin measurement (mass/volume)Ordered By: Yudelka Lopez on 04-14-2022 Bilirubin [Mass/Vol] 0.2 mg/dL 0.3-1.2 [facility] Serum or plasma total carbon dioxide measurement (moles/volume)Ordered By: Yudelka Lopez on 04-14-2022 CO2 [Moles/Vol] 24.5 mmol/L 22.0-30.0 [facility] Serum or plasma urea nitroge n measurement (mass/volume)Ordered By: Yudelka Lopez on 04-14-2022 Urea nitrogen [Mass/Vol] 6 mg/dL 9-23 [facility] AMYLASEon 04-11-2022 Amylase [Catalytic activity/Vol] 54 U/L Normal 25-115 [facility] Comment on above: Performed By: #### A MY, CMP, LIPA #### [facility] [address] [address] [address] Aadm Mejía CBC AUTO DIFFon 04-11-2022 BASO # 0.0 103/ul Normal 0.0-0.1 [facility] Comment on above: Performed By: #### C BC #### [facility] [address] [place] [address] Dr. Adam Mejía Basophils/100 WBC (Bld) 0.2 % Normal 0.2-2.0 [facility] Comment on above: Performed By: #### C BC #### [facility] [address] [place] [address] Dr. Adam Mejía EO # 0.1 103/ul Normal 0.0-0.7 [facility] Comment on above: Performed By: #### C BC #### [facility] [address] [address] [address] Adam Mejía Eosinophils/100 WBC (Bld) 0.6 % Critically low 0.9-7.0 [facility] Comment on above: Performed By: #### C BC #### [facility] [address] [place] [address] Dr. Adam Mejía Erythrocyte distribution width (RBC) [Ratio] 13.9 % Normal 11.0-15.0 [facility] Comment on above: Performed By: #### C BC #### [facility] [address] [place] [address] Dr. Adam Mejía Hematocrit (Bld) [Volume fraction] 31.4 % Critically low 36.0-48.0 [facility] Comment on above: Performed By: #### C BC #### [facility] [address] [place] [address] Dr. Adam Mejía Hemoglobin (Bld) [Mass/Vol] 9.8 g/dL Critically low 12.0-16.0 [facility] Comment on above: Performed By: #### C BC #### [facility] [address] [place] [address] Dr. Adam Mejía IG # 0.03 10e3/ul Normal 0.00-0.03 [facility] Comment on above: Performed By: #### C BC #### [facility] [address] [place] [address] Dr. Adam Mejía IG % 0.3 % Normal 0.0-0.5 [facility] Comment on above: Performed By: #### C BC #### [facility] [address] [place] [address] Dr. Adam Mejía LYMPH # 1.1 103/ul Critically low 1.2-3.8 [facility] Comment on above: Performed By: #### C BC #### [facility] [address] [place] [address] Dr. Adam Mejía Lymphocytes/100 WBC (Bld) 9.3 % Critically low 20.5-60.0 [facility] Comment on above: Performed By: #### C BC #### [facility] [address] [place] [address] Dr. Adam Mejía MANUAL DIFF REQ NO Normal [facility] Comment on above: Performed By: #### C BC #### [facility] [address] [place] [address] Dr. Adam Mejía MCH (RBC) [Entitic mass] 22.5 pg Critically low 26.7-34.0 [facility] Comment on above: Performed By: #### C BC #### [facility] [address] [place] [address] Dr. Adam Mejía MCHC (RBC) [Mass/Vol] 31.2 g/dL Normal 29.9-35.2 [facility] Comment on above: Performed By: #### C BC #### [facility] [address] [place] [address] Dr. Adam Mejía MCV (RBC) [Entitic vol] 72.0 fL Critically low 81.0-99.0 [facility] Comment on above: Performed By: #### C BC #### [facility] [address] [place] [address] Dr. Adam Mejía MONO # 0.6 103/ul Normal 0.3-0.8 [facility] Comment on above: Performed By: #### C BC #### [facility] [address] [place] [address] Dr. Adam Mejía Monocytes/100 WBC (Bld) 4.6 % Normal 1.7-12.0 [facility] Comment on above: Performed By: #### C BC #### [facility] [address] [place] [address] Dr. Adam Mejía NEUT # 10.2 103/ul Critically high 1.4-6.5 [facility] Comment on above: Performed By: #### C BC #### [facility] [address] [place] [address] Dr. Adam Mejía Neutrophils/100 WBC (Bld) 85.0 % Critically high 43.0-75.0 [facility] Comment on above: Performed By: #### C BC #### [facility] [address] [place] [address] Dr. Adam Mejía Platelet mean volume (Bld) [Entitic vol] 12.1 fL Normal 9.5-13.5 [facility] Comment on above: Performed By: #### C BC #### [facility] [address] [place] [address] Dr. Adam Mejía PLT 270 103/ul Normal 150-450 [facility] Comment on above: Performed By: #### C BC #### [facility] [address] [place] [address] Dr. Adam Mejía RBC 4.36 106/ul Normal 4.20-5.40 [facility] Comment on above: Performed By: #### C BC #### [facility] [address] [place] [address] Dr. Adam Mejía WBC 12.0 103/ul Critically high 4.0-11.0 [facility] Comment on above: Performed By: #### C BC #### [facility] [address] [place], [place] [address] ABD/PELV W CONon 04-11-20 CT ABD/PELV W CON EXAMINATION: CT ABD/ PELV W CON HISTORY: CONSTIPATION, UNSPECIFIED COMPARISON: CT abdomen and pelvis 01/11/2022. TECHNIQUE: Dose reduction techniques were achieved by using automated exposure control and/or adjustment of mA and/or kV according to patient size and/or use of iterative reconstruction technique. FINDINGS: Lung bases are clear. No adrenal mass or adenopathy. No obstructive uropathy. Patent portal vein. No biliary obstruction. Aorta is normal caliber. There is no evidence of bowel obstruction. No pneumatosis or pneumoperitoneum. Moderate formed stool throughout the colon. Normal appendix. No pelvic adenopathy. There is skin thickening of the lower anterior abdominal wall as well as infiltration of the subcutaneous fat. No organized fluid collection. There is trace pelvic ascites in the cul-de-sac, rectal vault is distended with stool measuring up to 7.6 cm. Bladder is normal. No acute bony abnormality. IMPRESSION: 1. Patient appears to be constipated with rectal fecal impaction. No evidence of bowel obstruction. 2. Skin thickening and subcutaneous edema over the lower abdominal wall. The mass documented in this region on prior imaging in December appears to have been resected. The edema in the abdominal wall may be related to previous interval surgery, active inflammatory process such as cellulitis is not ruled out. There is no organized fluid collection. 3. Trace pelvic ascites likely physiologic in a patient of this age. Electronically authenticated by: NADIA MORROW Date: 2022-04-11 07:25 Normal [facility] LIPASEon 04-11-2022 Lipase [Catalytic activity/Vol] 152.0 U/L Normal 73.0-393.0 [facility] Comment on above: Performed By: #### A MY, CMP, LIPA #### [facility] [address] [place], [place] [address] Dr. Adam Mejía PREG HCG QUALon 04-11-2022 , QUAL Negative Normal NEGATIVE [facility] Comment on above: Performed By: #### U MICRO, PREGU, ERUR #### [facility] [address] [place] [address] Dr. Adam Mejía PROF 14(COMP METB)on 022 Albumin [Mass/Vol] 3.8 g/dL Normal 3.4-5.0 [facility] Comment on above: Performed By: #### U MICRO, PREGU, ERUR #### [facility] [address] [address] [address] Adam Mejía Albumin/Globulin [Mass ratio] 0.9 {ratio} Normal [facility] Comment on above: Performed By: #### U MICRO, PREGU, ERUR #### [facility] [address] [place] [address] Dr. Adam Mejía ALP [Catalytic activity/Vol] 51 U/L Normal 46-116 [facility] Comment on above: Performed By: #### U MICRO, PREGU, ERUR #### [facility] [address] [place] [address] Dr. Adam Mjeía ALT [Catalytic activity/Vol] 11 U/L Critically low 14-59 [facility] Comment on above: Performed By: #### U MICRO, PREGU, ERUR #### [facility] [address] [place] [address] Dr. Adam Mejía Anion gap [Moles/Vol] 11.9 mmol/L Normal [facility] Comment on above: Performed By: #### U MICRO, PREGU, ERUR #### [facility] [address] [place] [address] Dr. Adam Mejía AST [Catalytic activity/Vol] 14 U/L Critically low 15-37 [facility] Comment on above: Performed By: #### U MICRO, PREGU, ERUR #### [facility] [address] [place] [address] Dr. Adam Mejía Bilirubin [Mass/Vol] 0.4 mg/dL Normal 0.2-1.0 [facility] Comment on above: Performed By: #### U MICRO, PREGU, ERUR #### [facility] [address] [place] [address] Dr. Adam Mejía Calcium [Mass/Vol] 9.4 mg/dL Normal 8.5-10.1 [facility] Comment on above: Performed By: #### U MICRO, PREGU, ERUR #### [facility] [address] [address] [address] Adam Mejía Chloride [Moles/Vol] 104 mmol/L Normal 98-107 [facility] Comment on above: Performed By: #### U MICRO, PREGU, ERUR #### [facility] [address] [address] [address] Adam Mejía CO2 [Moles/Vol] 26.1 mmol/L Normal 21.0-32.0 [facility] Comment on above: Performed By: #### U MICRO, PREGU, ERUR #### [facility] [address] [address] [address] Adam Mejía Creatinine [Mass/Vol] 0.78 mg/dL Normal 0.55-1.02 [facility] Comment on above: Performed By: #### U MICRO, PREGU, ERUR #### [facility] [address] [address] [address] Adam Mejía EGFR-AF LEBANESE >60 Normal >=60 [facility] Comment on above: Performed By: #### U MICRO, PREGU, ERUR #### [facility] [address] [place] [address] Dr. Adam Mejía EGFR-NON AF LEBANESE >60 Normal >=60 [facility] Comment on above: Performed By: #### U MICRO, PREGU, ERUR #### [facility] [address] [address] [address] Adam Mejía Globulin (S) [Mass/Vol] 4.1 g/dL Normal [facility] Comment on above: Performed By: #### U MICRO, PREGU, ERUR #### [facility] [address] [place] [address] Dr. Adam Mejía Glucose [Mass/Vol] 111 mg/dL Critically high 74-106 [facility] Comment on above: Performed By: #### U MICRO, PREGU, ERUR #### [facility] [address] [address] [address] Adam Mejía Potassium [Moles/Vol] 4.0 mmol/L Normal 3.5-5.1 [facility] Comment on above: Performed By: #### U MICRO, PREGU, ERUR #### [facility] [address] [address] [address] Adam Mejía Protein [Mass/Vol] 7.9 g/dL Normal 6.4-8.2 [facility] Comment on above: Performed By: #### U MICRO, PREGU, ERUR #### [facility] [address] [address] [address] Adam Mejía Sodium [Moles/Vol] 138 mmol/L Normal 136-145 [facility] Comment on above: Performed By: #### U MICRO, PREGU, ERUR #### [facility] [address] [address] [address] Adam Mejía Urea nitrogen [Mass/Vol] 10.0 mg/dL Normal 7.0-18.0 [facility] Comment on above: Performed By: #### U MICRO, PREGU, ERUR #### [facility] [address] [address] [address] Adam Mejía Urea nitrogen/Creatinine [Mass ratio] 12.8 mg/mg Normal [facility] Comment on above: Performed By: #### U MICRO, PREGU, ERUR #### [facility] [address] [address] [address] Adam Mejía XR ABD FLAT UP_PA Baudilio 04-11 XR ABD FLAT UP_PA COMPARISON: Abdomin al CT, today at 5:44 AM. CLINICAL HISTORY: Constipation. FINDINGS: Single frontal view of the chest demonstrates a normal cardiac silhouette. Lungs are clear. No infiltrate. No pleural fluid. No free air under the hemidiaphragms. Upright and supine abdominal films demonstrate a nonobstructive bowel gas pattern. Moderate to large form stool in the ascending colon and rectal vault. No pathologic calcifications. No evidence of free air. No acute bony abnormality. IMPRESSION: Constipation suspected. No evidence of bowel obstruction. Electronically authenticated by: NADIA Busby: 2022-04-11 06:26 Normal [facility] Blood Pressure Cuff Sizeon 0 04-07-2022 Tobacco use status CPHS b) No [facility] Work Phone: Blood Pressure Cuff Size Adult [facility] Work Phone: Office Visit (Oncology Surge ry)on 04-07-2022 Follow-up visit Diagnoses/Problems Assessed Abdominal wall mass (429.30) (R22.2) Orders Abdominal wall mass Continue: Ondansetron 8 MG Oral Tablet Disintegrating; TAKE 1 TABLET Every 8 hours Unlinked Continue: FeroSul 325 (65 Fe) MG Oral Tablet Patient Discussion/Summary Mrs. Fonseca is a 31-year-old female presenting with an endometrioma of the left lower abdominal wall. This is about 3 and half centimeters in greatest dimension at this time and tender. She is limited in her activities as a result of this and is desiring to have this treated. The patient understands that this tumor may be 1 deposit of many that could be intra-abdominal although we do not see any other intra-abdominal tumors on imaging. Nonetheless, resection of this mass may not resolve her abdominal discomfort and dyspareunia. Additionally, due to extension of this mass into the rectus muscle there may be a abdominal wall reconstruction that would be needed. Mesh would often be required for this although this would be determined at the time of the operation. Surgery 04/03/2022 - Radical resection left abdominal wall mass and associated rectus fascia Pathology - PENDING Drain removed today. Pathology is pending. I will call her with the results when they return. The patient will return to her [employer] Dr. Pendleton for discussion of ongoing treatment. She brought up the option for Hysterectomy and Oophorectomy to prevent endometriosis related pains. She understands that he will be the person to talk to regarding this possibility. The patient asked very appropriate questions that were answered to the best of my ability with the current information at hand. She knows to call with any questions or concerns that arise in the interim Chief Complaint Endometrioma of prior scar History of Present IllnessMs. Fonseca is a 31-year-old female presenting with a painful and growing left lower abdominal wall mass. She was referred by Dr. Malcolm Pendleton for evaluation and management of this tumor. The patient reports that the mass has been noted for some time however it seems to have grown in size. It is now significantly painful and seems to become more painful during menstruation. She also feels like she has a decreased energy level. She takes ibuprofen for the pain but only gets some relief with this. She reports abdominal discomfort since 2017. Her last was about 2 years ago at which time she had her second . She also reports dyspareunia. She does report that she may consider having more kids although due to the difficulty of her prior pregnancies this has not been determined. She has had imaging including a CT scan and ultrasounds that have demonstrated a 3.5 x 1.7 x 3.3 cm soft tissue density in the left paracentral ventral abdominal fat abutting the underlying fascia and abdominal rectus muscle. Notably the patient also has a 2 cm umbilical hernia. Biopsy of this mass demonstrating findings consistent with an endometrioma. Surgery 04/03/2022 - Radical resection left abdominal wall mass and associated rectus fascia Pathology - PENDING 04/07/2022 - POV - Drain output is <10ml/day for 3 days. Presenting for removal. The patient had a ace few days after surgery where an she remained nauseous postoperatively and required prescription of Zofran which she continues to take occasionally. She also had shortness of breath and this was concerning enough to have her evaluated in the emergency department near home where an a pulmonary embolism was ruled out. She is doing better overall. She still reports significant pain in this area. She is doing well to not exert excessively ROS: The patient has very good performance status and is active daily. Cardiac: No chest pain, palpitations or heart attacks Pulmonary: No asthma, bronchitis, or COPD HEENT: No sinus or dental issues. GI: Abdominal discomfort seems to be cyclical. Pain after surgery : Dysmenorrhea. Dyspareunia. no urinary complaints Musculoskeletal: No limitations to ROM or strength Skin: No prior skin lesions or concerns Heme: No bleeding or thrombosis issues Lymph: No swollen lymph glands Psych: No reported anxiety or depression All other systems reviewed and negative Physical exam: General: No acute distress. Healthy appearing HEENT: Moist oral mucosa, normocephalic CV: RRR, Vitals reviewed Pulmonary: No respiratory distress. No use of accessory muscles. No audible wheeze GI: Soft, non-distended. Incision intact. Drain output minimal. Serosanguinous. No additional ouptut upon stripping the drain. Tender Skin: Incision intact Neuro: No gross sensorimotor deficits Extremities: No leg swelling Active Problems Problems Abdominal wall mass (789.30) (R22.2) Allergies Medication albuterol Recorded By: Kim Isaac; 03/24/2022 11:45:28 AM Current Meds Medication NameInstructionReason Ondansetron 8 MG Oral Tablet DisintegratingTAKE 1 TABLET Every 8 hoursAbdominal wall mass FeroSul 325 (65 (more content not included)... Normal [facility] Activated partial thrombopla stin time (aPTT) in platelet poor plasma by coagulation aOrdered By: Frank Silva on 04-04-2022 aPTT Coag (PPP) [Time] 29.4 s 25.1-36.5 [facility] Albumin [Mass/volume] in Ser um or PlasmaOrdered By: Frank Silva on 04-04-2022 Albumin [Mass/Vol] 3.6 g/dL 3.2-5.5 [facility] Automated erythrocytes count in urine sediment (number/area)Ordered By: Judsno Dior on 04-04-2022 RBC Auto (Urine sed) [#/Area] 20-49 [HPF] 0-4 [facility] Automated leukocytes count i n urine sediment (number/area)Ordered By: Judson Dior on 04-04-2022 WBC Auto (Urine sed) [#/Area] 10-19 [HPF] 0-4 [facility] Basophils Auto (Bld) [#/Vol] Ordered By: Frank Silva on 04-04-2022 Basophils (Bld) [#/Vol] 0.0 10*3/uL 0.0-0.2 [facility] Basophils/100 WBC Auto (Bld) Ordered By: Farnk Silva on 04-04-2022 Basophils/100 WBC (Bld) 0.4 % . [facility] Bilirubin Test strip Ql (U)O rdered By: Judson Dior on 04-04-2022 Bilirubin Ql (U) Negative Negative [facility] Blood hemoglobin measurement (mass/volume)Ordered By: Frank Silva on 04-04-2022 Hemoglobin (Bld) [Mass/Vol] 10.0 g/dL 11.8-15.4 [facility] Blood leukocytes automated c ount (number/volume)Ordered By: Frank Silva on 04-04-2022 WBC (Bld) [#/Vol] 9.8 10*3/uL 4.5-11.0 [facility] Color Auto (U)Ordered By: Anatoliy Dior on 04-04-2022 Color (U) Yellow Yellow [facility] Creatinine and Glomerular fi ltration rate.predicted panel (S/P/Bld)Ordered By: Frank Silva on 04-04-2022 Creatinine [Mass/Vol] 0.93 mg/dL 0.44-1.03 [facility] Eosinophils Auto (Bld) [#/Vo l]Ordered By: Frank Silva on 04-04-2022 Eosinophils (Bld) [#/Vol] 0.0 10*3/uL 0.0-0.45 [facility] Eosinophils/100 WBC Auto (Bl d)Ordered By: rFank Silva on 04-04-2022 Eosinophils/100 WBC (Bld) 0.3 % . [facility] Erythrocyte distribution wid th Auto (RBC) [Ratio]Ordered By: Frank Silva on 04-04-2022 Erythrocyte distribution width (RBC) [Ratio] 14.1 % 11.9-15.3 [facility] Estimated glomerular filtrat ion rate (GFR) non- AmericanOrdered By: Frank Silva on 04-04-2022 GFR/1.73 sq M.predicted among non-blacks MDRD (S/P/Bld) [Vol rate/Area] > 60 mL/Min [facility] Globulin Calc (S) [Mass/Vol] Ordered By: Frank Silva on 04-04-2022 Globulin (S) [Mass/Vol] 3.1 g/dL [facility] HCG ( test) IA.rapi d Ql (U)Ordered By: Judson Dior on 04-04-2022 HCG ( test) Ql (U) Negative [facility] HCG ( test) IA.rapi d Ql (U)Ordered By: Frank Silva on 04-04-2022 HCG ( test) Ql (U) Negative [facility] Hematocrit Auto (Bld) [Volum e fraction]Ordered By: Frank Silva on 04-04-2022 Hematocrit (Bld) [Volume fraction] 31.9 % 34.0-46.4 [facility] Ketones Auto test strip (U) [Mass/Vol]Ordered By: Judson Dior on 04-04-2022 Ketones (U) [Mass/Vol] 4+ Negative Fi [facility] - Chemistry and C hemistry - challengeOrdered By: Frank Silva on 04-04-2022 Natriuretic peptide B (Bld) [Mass/Vol] 44.0 pg/mL 5-100 [facility] - CoagulationOrde red By: Frank Silva on 04-04-2022 PT Coag (PPP) [Time] 14.0 s 9.0-12.9 [facility] - Hematology and Cell countsOrdered By: Frank Silva on 04-04-2022 Nucleated RBC/100 WBC (Bld) [Ratio] 0.0 % 0-0.5 [facility] - UrinalysisOrder ed By: Judson Dior on 04-04-2022 Hyaline casts LM Ql (Urine sed) 0-8 [LPF] 0-8 [facility] Lymphocytes Auto (Bld) [#/Vo l]Ordered By: Frank Silva on 04-04-2022 Lymphocytes (Bld) [#/Vol] 2.1 10*3/uL 1.00-4.8 [facility] Lymphocytes/100 WBC Auto (Bl d)Ordered By: Frank Silva on 04-04-2022 Lymphocytes/100 WBC (Bld) 21.5 % . [facility] MCH Auto (RBC) [Entitic mass ]Ordered By: Frank Silva on 04-04-2022 MCH (RBC) [Entitic mass] 22.2 pg 24.7-34.3 [facility] MCHC Auto (RBC) [Mass/Vol]Or dered By: Frank Silva on 04-04-2022 MCHC (RBC) [Mass/Vol] 31.2 g/dL 32.0-35.0 [facility] MCV Auto (RBC) [Entitic vol] Ordered By: Frank Silva on 04-04-2022 MCV (RBC) [Entitic vol] 71.2 fL 80-100 [facility] Monocytes Auto (Bld) [#/Vol] Ordered By: Frank Silva on 04-04-2022 Monocytes (Bld) [#/Vol] 0.7 10*3/uL 0.0-0.8 [facility] Monocytes/100 WBC Auto (Bld) Ordered By: Frank Silva on 04-04-2022 Monocytes/100 WBC (Bld) 6.9 % . [facility] Neutrophils Auto (Bld) [#/Vo l]Ordered By: Frank Silva on 04-04-2022 Neutrophils (Bld) [#/Vol] 7.0 10*3/uL 1.8-7.7 [facility] Neutrophils/100 WBC Auto (Bl d)Ordered By: Frank Silva on 04-04-2022 Neutrophils/100 WBC (Bld) 70.9 % . [facility] Nitrite Test strip Ql (U)Ord ered By: Judson Dior on 04-04-2022 Nitrite Ql (U) Negative Negative [facility] No Panel InformationOrdered By: Frank Silva on 04-04-2022 Estimated GFR () > 60 mL/Min [facility] Comment on above: GFR estimated refere nce range: According to KDOQI guidelines, <60 ml/min/1.73m2 is sufficient to diagnose a patient with chronic kidney disease. Pharmacy Creatinine Clearance (Chem 84.97 [facility] Platelet mean volume Auto (B ld) [Entitic vol]Ordered By: Frank Silva on 04-04-2022 Platelet mean volume (Bld) [Entitic vol] 9.6 fL 6.3-10.7 [facility] Platelet poor plasma interna tional normalized ratio (INR) by coagulation assay (relatOrdered By: Frank Silva on 04-04-2022 INR Coag (PPP) [Relative time] 1.2 {INR} [facility] Comment on above: INR Therapeutic Rang e A) Pre- and Peroperative OAT started two weeks before surgery. NOT HIP SURGERY: 1.5 - 2.5 HIP SURGERY: 2 - 3 B) Primary and secondary prevention of venous THROMBOSIS: 2 - 3 C) Active venous thrombosis, pulmonary embolism and prevention of recurrent venous thrombosis: 2 - 3 D) Prevention of arterial thromboembolism including patients with mechanical heart valves: 3 - 4.5 Platelets Auto (Bld) [#/Vol] Ordered By: Frank Silva on 04-04-2022 Platelets (Bld) [#/Vol] 224 10*3/uL 150-450 [facility] Protein Auto test strip (U) [Mass/Vol]Ordered By: Judson Dior on 04-04-2022 Protein (U) [Mass/Vol] Trace mg/dL Negative [facility] Protein [Mass/volume] in Ser um or PlasmaOrdered By: Frank Silva on 04-04-2022 Protein [Mass/Vol] 6.7 g/dL 6.1-7.9 [facility] RBC Auto (Bld) [#/Vol]Ordere d By: Frank Silva on 04-04-2022 RBC (Bld) [#/Vol] 4.49 10*6/uL 3.60-5.00 [facility] Serum or plasma alanine keene otransferase measurement without P-5'-P (enzymatic activiOrdered By: Frank Silva on 04-04-2022 ALT No additional P-5'-P [Catalytic activity/Vol] 15 U/L 10-60 [facility] Serum or plasma albumin/glob ulin mass ratioOrdered By: Frank Silva on 04-04-2022 Albumin/Globulin [Mass ratio] 1.2 {ratio} [facility] Serum or plasma alkaline jared sphatase measurement (enzymatic activity/volume)Ordered By: Frank Silva on 04-04-2022 ALP [Catalytic activity/Vol] 48 U/L 32-92 [facility] Serum or plasma aspartate am inotransferase measurement (enzymatic activity/volume)Ordered By: Frank Silva on 04-04-2022 AST [Catalytic activity/Vol] 15 U/L 10-42 [facility] Serum or plasma calcium marychuy urement (mass/volume)Ordered By: Frank Silva on 04-04-2022 Calcium [Mass/Vol] 9.0 mg/dL 8.2-10.2 [facility] Serum or plasma chloride nemo surement (moles/volume)Ordered By: Frank Silva on 04-04-2022 Chloride [Moles/Vol] 102 mmol/L 95-114 [facility] Serum or plasma glucose marychuy urement (mass/volume)Ordered By: Frank Silva on 04-04-2022 Glucose [Mass/Vol] 92 mg/dL 70-100 [facility] Comment on above: ADA recommended refe rence range Random Glucose Reference Range is dependent on time and content of last meal. Glucose of more than 200 mg/dL in a nonstressed, ambulatory subject supports the diagnosis of Diabetes Mellitus. Serum or plasma potassium me asurement (moles/volume)Ordered By: Frank Silva on 04-04-2022 Potassium [Moles/Vol] 3.1 mmol/L 3.5-5.1 [facility] Serum or plasma sodium measu rement (moles/volume)Ordered By: Frank Silva on 04-04-2022 Sodium [Moles/Vol] 137 mmol/L 136-146 [facility] Serum or plasma total biliru bin measurement (mass/volume)Ordered By: Frank Silva on 04-04-2022 Bilirubin [Mass/Vol] 0.7 mg/dL 0.3-1.2 [facility] Serum or plasma total carbon dioxide measurement (moles/volume)Ordered By: Frank Silva on 04-04-2022 CO2 [Moles/Vol] 23.6 mmol/L 22.0-30.0 [facility] Serum or plasma urea nitroge n measurement (mass/volume)Ordered By: Frank Silva on 04-04-2022 Urea nitrogen [Mass/Vol] 8 mg/dL 9-23 [facility] Specific gravity Auto test s trip (U) [Rel density]Ordered By: Judson Dior on 04-04-2022 Specific gravity (U) [Rel density] 1.027 1.001-1.03 0 [facility] Squamous epithelial cells de tection in urine sediment by light microscopyOrdered By: Judson Dior on 04-04-2022 Epithelial cells.squamous LM Ql (Urine sed) 10-19 [HPF] 0-2 [facility] Troponin I.cardiac [Mass/vol ume] in Serum or Plasma by High sensitivity methodOrdered By: Frank Silva on 04-04-2022 Troponin I.cardiac High sensitivity method [Mass/Vol] 3 pg/mL 0-15 [facility] Urine bacteria detection by automated methodOrdered By: Judson Dior on 04-04-2022 Bacteria Auto Ql (U) None seen None Seen [facility] Urine clarity by refractomet ry automatedOrdered By: Judson Dior on 04-04-2022 Clarity Refractometry automated (U) Cloudy Clear [facility] Urine glucose measurement by automated test strip (mass/volume)Ordered By: Judson Dior on 04-04-2022 Glucose Auto test strip (U) [Mass/Vol] Normal mg/dL Normal [facility] Urine hemoglobin detection b y automated test stripOrdered By: Judson Dior on 04-04-2022 Hemoglobin Auto test strip Ql (U) 2+ Negative [facility] Urine leukocyte esterase det ection by automated test stripOrdered By: Judson Dior on 04-04-2022 Leukocyte esterase Auto test strip Ql (U) Negative Negative [facility] Urine sediment renal epithel ial cell count by microscopy (number/high power field)Ordered By: Judson Dior on 04-04-2022 Epithelial cells.renal LM.HPF (Urine sed) [#/Area] None seen [HPF] 0-1 [facility] Urobilinogen Auto test strip (U) [Mass/Vol]Ordered By: Judson Dior on 04-04-2022 Urobilinogen (U) [Mass/Vol] Normal mg/dL Normal [facility] pH Auto test strip (U)Ordere d By: Judson Dior on 04-04-2022 pH (U) 6.0 [pH] 5.0-9.0 [facility] HCG,URINEon 04-03-2022 Beta HCG ( test) Ql (U) Negative Normal Negative [facility] Comment on above: Order Comment: poct Performed By: #### H CGU #### [facility] [address] [place] [address] No Panel Informationon 04-03 [facility] Work Phone: Order Reconciliationon 04-03 Order Reconciliation Page 1 Discharge Reconciliation Document Reconciliation Type: Discharge requested on behalf of Miguel Crawford (Resident) done by Miguel Crawford ( (Resident)) Discharge - Reconciliation: 03-Apr-2022 17:02 by: Miguel Crawford ( (Resident)) Home Medications EnteredHOME MEDICATIONS AT DISCHARGE DateReconciliation Comment/ Additional Information celecoxib 100 mg oral capsule 1 cap(s) orally 2 times a day 31-Mar-2022 13:07 celecoxib 100 mg oral capsule 1 cap(s) orally 2 times a day 31-Mar-2022 13:07 celecoxib 100 mg oral capsule is continued as celecoxib 100 mg oral capsule FeroSul 325 mg (65 mg elemental iron) oral tablet orally once a day 31-Mar-2022 13:06 FeroSul 325 mg (65 mg elemental iron) oral tablet orally once a day 31-Mar-2022 13:06 FeroSul 325 mg (65 mg elemental iron) oral tablet is continued as FeroSul 325 mg (65 mg elemental iron) oral tablet ibuprofen 800 mg oral tablet 31-Mar-2022 13:04 ibuprofen 800 mg oral tablet 31-Mar-2022 13:04 ibuprofen 800 mg oral tablet is continued as ibuprofen 800 mg oral tablet Current OrdersDateHOME MEDICATIONS AT DISCHARGE DateReconciliation Comment/ Additional Information ceFAZolin 1 gram IVPB/ Premixed Soln 50 mL (ANCEF)OnceRecommended Infusion Time: 30 minute(s)Clinician Notes: preop 04/03/2231-Mar-2022 11:24 ceFAZolin 1 gram IVPB/ Premixed Soln 50 mL is not required HYDROmorphone Injectable (DILAUDID)DOSE = 0.25 mg IntraVenous Push Every 5 Minutes, PRN Pain - Mod (4-6) (PACU)Clinician Notes: Lucía-operative order ONLYMax total of 4 mg regardless of dose. 03-Apr-2022 12:27 HYDROmorphone Injectable is not required HYDROmorphone Injectable (DILAUDID)DOSE = 0.5 mg IntraVenous Push Every 5 Minutes, PRN Pain - Severe (7-10) (PACU)Clinician Notes: Lucía-operative order ONLYMax total of 4 mg regardless of dose. 03-Apr-2022 12:27 HYDROmorphone Injectable is not required Lactated Ringers Infusion IV Bag Volume = 1,000 mL Run at: 100 mL/hr IntraVenous Clinician Notes: Lucía-operative order ONLY 03-Apr-2022 12:27 Lactated Ringers Infusion is not required Lactated Ringers Infusion IV Bag Volume = 1,000 mL Run at: 100 mL/hr IntraVenous 31-Mar-2022 09:01 Lactated Ringers Infusion is not required Ondansetron Injectable (ZOFRAN)DOSE = 4 mg IntraVenous Push Once, PRN PONV, first lineClinician Notes: Lucía-operative order ONLY 03-Apr-2022 12:27 Ondansetron Injectable is not required Promethazine IV Piggy Back in Sodium Chloride 0.9% 50 mL (PHENERGAN)DOSE = 6.25 mg Once, PRN persistent PONV if first line ineffectiveRecommended Infusion Time: 15 minute(s)Clinician Notes: Lucía-operative order ONLY 03-Apr-2022 12:27 Promethazine IV Piggy Back is not required Home Medications Added During Discharge Reconciliation Activity as Tolerated 03-Apr-2022, Routine, Assistance Level: None, Restrictions: None, Limit your activities and rest today. Additional Patient Instructions Apply Ice pack to surgical area. Additional Patient Instructions Do not make important decisions or sign any important documents for the next 24 hours. Additional Patient Instructions Keep Surgical incision dry and clean. Additional Patient Instructions Remove Dressing by drain 4 days or if it becomes saturated. Additional Patient Instructions Strip drain, empty bulb (record volume). Then squeeze to empty air and replace cap to hold suction. Call Physician For: excessive bleeding (slow general oozing that completely soaks dressing or fresh bright red bleeding) or bleeding that will not stop. Apply pressure to the area and elevate. Call Physician For: persistant nausea and/or vomiting Over 24 hours Call Physician For: signs and sypmtoms of infection Increased redness or swelling at incision site, increased pain/tenderness at surgical site, increased temperature greater than 100 degress, increasing and/or progressive drainage from surgical site, and/or unusual odor from surgical site. Diet Regular Discharge Discharge Diagnosis< N80.9 Endometrioma Discharge Provider, Sly Crocker Discharge Disposition : .Home Condition at Discharge: Satisfactory Discharge Communication Instructions for Nursing Only: Remove IV prior to discharge from hospital. Do not remove any midline, if present, without an order from the provider. Discharge Instructions - PHR After your discharge from the hospital, two Summary of Care Documents will be available online in your Personal Health Record (PHR). 1.Consolidated-Clinical Document Architecture (C-CDA) Patient Discharge Summary This document is a summary of your hospital stay to be kept for your reference.2.C-CDA Visit Summary This document is a summary of your hospital stay to be shared with your follow-up providers (doctor, community mental health social worker, physical therapist, etc.). Follow Up with Dr. Crocker in [address] or operate motor vehicles for 24 hours and while taking narcotic pain me (more content not included)... [facility] Surgical Pathology Depar tmenton 04-03-2022 [facility] Surgical Pathology Department Name LEANDRA FONSECA Pathologist: REBECCA LAN MD Date of Procedure: 04/03/2022 Date Received: 04/04/2022 Date Reported 04/17/2022 Submitting Physician: SLY CROCKER MD Location: [facility] Surg Other External # FINAL DIAGNOSIS A. LEFT ABDOMINAL WALL ENDOMETRIOMA: --ENDOMETRIOSIS INVOLVING SUBCUTANEOUS FIBROVASCULAR AND ADIPOSE TISSUES. Electronically Signed Out By REBECCA LAN MD/MRG1 By the signature on this report, the individual or group listed as making the Final Interpretation/Diagnosis certifies that they have reviewed this case. Diagnostic [place] [address] Clinical History: Physician Contact Number: [phone] Fixative (A): Formalin Clinical Diagnosis History LEFT ABDOMINAL WALL TUMOR Specimens Submitted As: A: LEFT ABDOMINAL WALL ENDOMETRIOMA Gross Description: Received in formalin, labeled with the patient's name and hospital number and A , is an oriented, yellow lobulated segment of adipose tissue measuring 7.0 x 5.0 and excised to a depth of 5.2 cm. The specimen is surfaced by an elliptical segment of skin 6.2 x 0.9 cm. A short stitch is present as designated as the superior margin and is inked blue. A long stitch is present as designated as the lateral tip. The inferior margin is inked yellow. The deep margin is inked black. The skin surface is darkly pigmented, wrinkled and grossly unremarkable. The specimen is serially sectioned from medial to lateral to reveal firm purple-villavicencio, fibrous cut surfaces admixed with yellow adipose. Butter Grader sections are submitted in 10 cassettes. Summary of Cassettes: Specimen Label Site A 1-2 medial tip, full-thickness, bisected 3-4 lateral, full-thickness, bisected 5-7 underwriting sales representative sections of fibrous tissue to closest superior margin 8-10 underwriting sales representative sections of fibrous tissue to closest inferior margin mjr/04/06/2022 [facility] Department of Pathology [address] [place] [address] Normal [facility] Comment on above: Performed By: #### U HCS #### [facility] Surgical Pathology Department [address] [facility] [address] Urine Teston 04-03 HCG ( test) Ql (U) Negative Negative [facility] [address] Work Phone: COVID-19 Positive/NegativeOr dered By: Sly Crocker on 03-31-2022 SARS-CoV-2 (COVID-19) N gene HIRAM+probe Ql (Resp) Negative Negative [facility] Comment on above: Testing for SARS-CoV -2 by RT-PCR This test was developed and its performance characteristics determined by [employer] ([employer]) and validated at the [facility]. This test has not been FDA cleared or approved. This test has been authorized by FDA under an Emergency Use Authorization (EUA). This test has been validated in accordance with the FDA's Guidance Document (Policy for Diagnostics Testing in Laboratories Certified to Perform High Complexity Testing under CLIA prior to Emergency Use Authorization for Coronavirus Disease-2019 during the Public Health Emergency) issued on December 18, 2019. This test is only authorized for the duration of time the declaration that circumstances exist justifying the authorization of the emergency use of in vitro diagnostic tests for detection of SARS-CoV-2 virus and/or diagnosis of COVID-19 infection under section 564(b)(1) of the Act, 21 U.S.C. 360bbb-3(b)(1), unless the authorization is terminated or revoked sooner. 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 truck driver), insurance information, remove jewerly/piercings How to be AddressedAshley Spoken Language PreferredEnglish Source of Informationpatient Stated Reason for AdmissionLeft abdominal wall tumor resection Primary Contact Name and NumberBoyfriend- Deantrae [phone] Medications Brought to Hospitalno General Health: Weight in kg75.4 kilogram(s) Weight in fot032.2 pound(s) Weight Methodactual (measured) Scale Typestanding Height in feet5 feet Height in inches2.95 inch(es) Height in cm159.8 centimeter(s) Height Methodstated BMI (kg/m2)29.526 square meter Patient or Family Member Reaction to Anesthesiano previous reaction Blood Avoidance/Restrictionsnone Previous Transfusion Reactionnot applicable Health Mgmt: Symptoms/Conditions Managed at HomeHEENT (head, eyes, ears, nose, throat) Are You no Are You Currently Breastfeedingno Barriers to Managing Healthnone Relationship/Environ: Lives Withsignificant other; dependent child(uriah) Living Arrangementshouse Resource/Environmental Concernsnone Anticipated Transition Tobirds landing Services Anticipated at Transitionnone Tobacco Use: Tobacco Useno Pre-op Checklist: Arrival [id number] Arrival Time11:16 Procedure Typeabdominal wall tumor resection NPOyes Last Food [id number] 21:00 Last Clear Fluid [id number] 21:00 ID Band On Patientpatient ID (name), allergy, falls risk Consent Signedyes H&P Completepending Anesthesia Assessment Completedyes EKG Performednot ordered Chest X-Ray Performednot ordered Preop Antibioticssent to OR COVID 19 Results in Last 7 daysnegative Type and Screen Resultedn/a HCG Urine TestComplete Chlorhexadine Bath Givennot applicable Nasal Antiseptic Appliednot applicable Soap and Water Bath the Night Before Surgeryyes Hair Washed with Shampooyes Bowel Prepno Surgical Site Infection Preventionyes Pain Scales and Managementyes Additional Information: Information Review: Allergies, Home Meds and Significant Events have been Reviewed and Verified with Patient/Familyyes Allergy, Intolerance, Adverse Event: Allergies: albuterol: Drug, Unknown, Active Significant Events: 03-Apr-2022 colonoscopy and endoscopy: Past Surgical History, Active 31-Mar-2022 c section x 2: Past Surgical History, Active 31-Mar-2022 anemia: Past Medical History, Active 31-Mar-2022 anxiety: Past Medical History, Active 31-Mar-2022 Abdominal wall mass: Past Medical History, Active Electronic Signatures: Anna Worthington (ROMEO) (Signed 31-Mar-2022 13:12) Authored: Initial Info, General Health, Health Mgmt, Relationship/Environ, Tobacco Use, Additional Information Aviva Galvez) (Signed 03-Apr-2022 11:57) Authored: General Health, Pre-op Checklist, Additional Information Last Updated: 03-Apr-2022 11:57 by Aviva Galvez) [facility] Office Visit (Oncology Surge ry)on 03-24-2022 Follow-up visit Diagnoses/Problems Assessed Abdominal wall mass (789.30) (R22.2) *Orders Abdominal wall mass CORONAVIRUS 2019 RNA BY PCR, SCREEN ASYMPTOMATIC AMBULATORY; Status:Hold For - Specimen/Data Collection,Retrospective By Protocol Authorization; Requested for:[id number]; Abdominal wall mass (789.30) (R22.2) Patient Discussion/Summary Mrs. Fonseca is a 31-year-old female presenting with an endometrioma of the left lower abdominal wall. This is about 3 and half centimeters in greatest dimension at this time and tender. She is limited in her activities as a result of this and is desiring to have this treated. The patient understands that this tumor may be 1 deposit of many that could be intra-abdominal although we do not see any other intra-abdominal tumors on imaging. Nonetheless, resection of this mass may not resolve her abdominal discomfort and dyspareunia. Additionally, due to extension of this mass into the rectus muscle there may be a abdominal wall reconstruction that would be needed. Mesh would often be required for this although this would be determined at the time of the operation. The patient understands the risks, benefits, and alternatives to abdominal wall mass resection and possible abdominal wall reconstruction with mesh. At this time, to ensure the diagnosis I will have a pathology review performed and reviewed the imaging and tumor board. The patient will be ordered for celecoxib for symptomatic relief. We will plan for surgery at the earliest appropriate time. The patient and her boyfriend asked very appropriate questions that were answered to the best of my ability with the current information at hand. She knows to call with any questions or concerns that arise in the interim A total of 45 minutes was spent evaluating the patient's case including review of her outside imaging and pathology results. About 50% of this time was spent in direct counseling of the patient and her boyfriend. Chief Complaint Mass of prior scar History of Present IllnessMsJorge Fonseca is a 31-year-old female presenting with a painful and growing left lower abdominal wall mass. She was referred by Dr. Malcolm Pendleton for evaluation and management of this tumor. The patient reports that the mass has been noted for some time however it seems to have grown in size. It is now significantly painful and seems to become more painful during menstruation. She also feels like she has a decreased energy level. She takes ibuprofen for the pain but only gets some relief with this. She reports abdominal discomfort since 2017. Her last was about 2 years ago at which time she had her second . She also reports dyspareunia. She does report that she may consider having more kids although due to the difficulty of her prior pregnancies this has not been determined. She has had imaging including a CT scan and ultrasounds that have demonstrated a 3.5 x 1.7 x 3.3 cm soft tissue density in the left paracentral ventral abdominal fat abutting the underlying fascia and abdominal rectus muscle. Notably the patient also has a 2 cm umbilical hernia. Biopsy of this mass demonstrating findings consistent with an endometrioma. Past medical history: Anxiety Hypertension Anemia iron supplementation Past surgical history: x2, 2016, 2019 Family History: Family history of diabetes, end-stage renal disease, coronary artery disease, and stroke in her father Sister with thyroid problems Social history: Lives in [place] with her boyfriend. She has 2 children the youngest of whom is 2 years old. Denies tobacco use. Rare alcohol and marijuana use Allergies: Albuterol ROS: The patient has very good performance status and is active daily. Cardiac: No chest pain, palpitations or heart attacks Pulmonary: No asthma, bronchitis, or COPD HEENT: No sinus or dental issues. GI: Abdominal discomfort seems to be cyclical. Abdominal wall mass : Dysmenorrhea. Dyspareunia. no urinary complaints Musculoskeletal: No limitations to ROM or strength Skin: No prior skin lesions or concerns Heme: No bleeding or thrombosis issues Lymph: No swollen lymph glands Psych: No reported anxiety or depression All other systems reviewed and negative Physical exam: General: No acute distress. Healthy appearing HEENT: Moist oral mucosa, normocephalic CV: RRR, Vitals reviewed Pulmonary: No respiratory distress. No use of accessory muscles. No audible wheeze GI: Soft, non-distended. 3 to 4 cm abdominal wall mass palpable. This is mild to moderately tender to palpation. This appears to be at the superior aspect of her prior left-sided Pfannenstiel incision. This is subcutaneous and fixed to the underlying fascia. Lymphatics: No palpable lymph nodes in bilateral inguinal basins Skin: scar without evidence of skin erosion Neuro: No gross sensorimotor deficits Extremities: No leg swelling Allergies Medication albuterol Recorded By: Kim Isaac; (more content not included)... Normal [facility] Tobacco Screening.on 022 Fall risk assessment a) No falls within the last year [facility] Work Phone: Tobacco use status [facility] b) No [facility] Work Phone: Automated erythrocytes count in urine sediment (number/area)Ordered By: Jim Vega on 03-15-2022 RBC Auto (Urine sed) [#/Area] 5-9 [HPF] 0-4 [facility] Automated leukocytes count i n urine sediment (number/area)Ordered By: Jim Vega on 03-15-2022 WBC Auto (Urine sed) [#/Area] None seen [HPF] 0-4 [facility] Basophils Auto (Bld) [#/Vol] Ordered By: Jim Vega on 03-15-2022 Basophils (Bld) [#/Vol] 0.1 10*3/uL 0.0-0.2 [facility] Basophils/100 WBC Auto (Bld) Ordered By: Jim Vega on 03-15-2022 Basophils/100 WBC (Bld) 0.7 % . [facility] Bilirubin Test strip Ql (U)O rdered By: Jim Vega on 03-15-2022 Bilirubin Ql (U) Negative Negative [facility] Blood hemoglobin measurement (mass/volume)Ordered By: Jim Vega on 03-15-2022 Hemoglobin (Bld) [Mass/Vol] 9.9 g/dL 11.8-15.4 [facility] Blood leukocytes automated c ount (number/volume)Ordered By: Jim Vega on 03-15-2022 WBC (Bld) [#/Vol] 8.3 10*3/uL 4.5-11.0 [facility] Body fluid albumin measureme nt (mass/volume)Ordered By: Jim Vega on 03-15-2022 Albumin (Body fld) [Mass/Vol] 3.7 g/dL 3.2-5.5 [facility] Color Auto (U)Ordered By: Narinder Vega on 03-15-2022 Color (U) Yellow Yellow [facility] Creatinine and Glomerular fi ltration rate.predicted panel (S/P/Bld)Ordered By: Jim Vega on 03-15-2022 Creatinine [Mass/Vol] 0.85 mg/dL 0.44-1.03 [facility] Eosinophils Auto (Bld) [#/Vo l]Ordered By: Jim Vega on 03-15-2022 Eosinophils (Bld) [#/Vol] 0.2 10*3/uL 0.0-0.45 [facility] Eosinophils/100 WBC Auto (Bl d)Ordered By: Jim Vega on 03-15-2022 Eosinophils/100 WBC (Bld) 2.0 % . [facility] Erythrocyte distribution wid th Auto (RBC) [Ratio]Ordered By: Jim Vega on 03-15-2022 Erythrocyte distribution width (RBC) [Ratio] 14.4 % 11.9-15.3 [facility] Estimated glomerular filtrat ion rate (GFR) non- AmericanOrdered By: Jim Vega on 03-15-2022 GFR/1.73 sq M.predicted among non-blacks MDRD (S/P/Bld) [Vol rate/Area] > 60 mL/Min [facility] Globulin Calc (S) [Mass/Vol] Ordered By: Jim Vega on 03-15-2022 Globulin (S) [Mass/Vol] 3.6 g/dL [facility] HCG ( test) IA.rapi d Ql (U)Ordered By: Jim Vega on 03-15-2022 HCG ( test) Ql (U) Negative [facility] Hematocrit Auto (Bld) [Volum e fraction]Ordered By: Jim Vega on 03-15-2022 Hematocrit (Bld) [Volume fraction] 31.8 % 34.0-46.4 [facility] Ketones Auto test strip (U) [Mass/Vol]Ordered By: Jim Vega on 03-15-2022 Ketones (U) [Mass/Vol] Negative Negative [facility] - Chemistry and C hemistry - challengeOrdered By: Jim Vega on 03-15-2022 Lipase [Catalytic activity/Vol] 53.0 U/L 22-51 [facility] Natriuretic peptide B (Bld) [Mass/Vol] 13.0 pg/mL 5-100 [facility] [facility] - Hematology and Cell countsOrdered By: Jim Vega on 03-15-2022 Nucleated RBC/100 WBC (Bld) [Ratio] 0.0 % 0-0.5 [facility] - UrinalysisOrder ed By: Jim Vega on 03-15-2022 Hyaline casts LM Ql (Urine sed) None seen [LPF] 0-8 [facility] Lymphocytes Auto (Bld) [#/Vo l]Ordered By: Jim Vega on 03-15-2022 Lymphocytes (Bld) [#/Vol] 1.9 10*3/uL 1.00-4.8 [facility] Lymphocytes/100 WBC Auto (Bl d)Ordered By: Jim Vega on 03-15-2022 Lymphocytes/100 WBC (Bld) 22.9 % . [facility] MCH Auto (RBC) [Entitic mass ]Ordered By: Jim Vega on 03-15-2022 MCH (RBC) [Entitic mass] 22.2 pg 24.7-34.3 [facility] MCHC Auto (RBC) [Mass/Vol]Or dered By: Jim Vega on 03-15-2022 MCHC (RBC) [Mass/Vol] 31.2 g/dL 32.0-35.0 [facility] MCV Auto (RBC) [Entitic vol] Ordered By: Jim Vega on 03-15-2022 MCV (RBC) [Entitic vol] 71.1 fL 80-100 [facility] Monocytes Auto (Bld) [#/Vol] Ordered By: Jim Vega on 03-15-2022 Monocytes (Bld) [#/Vol] 0.6 10*3/uL 0.0-0.8 [facility] Monocytes/100 WBC Auto (Bld) Ordered By: Jim Vega on 03-15-2022 Monocytes/100 WBC (Bld) 6.9 % . [facility] Neutrophils Auto (Bld) [#/Vo l]Ordered By: Jim Vega on 03-15-2022 Neutrophils (Bld) [#/Vol] 5.6 10*3/uL 1.8-7.7 [facility] Neutrophils/100 WBC Auto (Bl d)Ordered By: Jim Vega on 03-15-2022 Neutrophils/100 WBC (Bld) 67.5 % . [facility] Nitrite Test strip Ql (U)Ord ered By: Jim Vega on 03-15-2022 Nitrite Ql (U) Negative Negative [facility] No Panel InformationOrdered By: Jim Vega on 03-15-2022 Estimated GFR () > 60 mL/Min [facility] Comment on above: GFR estimated refere nce range: According to KDOQI guidelines, <60 ml/min/1.73m2 is sufficient to diagnose a patient with chronic kidney disease. Pharmacy Creatinine Clearance (Chem 93.64 [facility] Platelet mean volume Auto (B ld) [Entitic vol]Ordered By: Jim Vega on 03-15-2022 Platelet mean volume (Bld) [Entitic vol] 9.4 fL 6.3-10.7 [facility] Platelets Auto (Bld) [#/Vol] Ordered By: Jim Vega on 03-15-2022 Platelets (Bld) [#/Vol] 254 10*3/uL 150-450 [facility] Protein Auto test strip (U) [Mass/Vol]Ordered By: Jim Vega on 03-15-2022 Protein (U) [Mass/Vol] Negative Negative Fi [facility] Protein [Mass/volume] in Ser um or PlasmaOrdered By: Jim Vega on 03-15-2022 Protein [Mass/Vol] 7.3 g/dL 6.1-7.9 [facility] RBC Auto (Bld) [#/Vol]Ordere d By: Jim Vega on 03-15-2022 RBC (Bld) [#/Vol] 4.47 10*6/uL 3.60-5.00 [facility] Serum or plasma alanine keene otransferase measurement without P-5'-P (enzymatic activiOrdered By: Jim Vega on 03-15-2022 ALT No additional P-5'-P [Catalytic activity/Vol] 14 U/L 10-60 [facility] Serum or plasma albumin/glob ulin mass ratioOrdered By: Jim Vega on 03-15-2022 Albumin/Globulin [Mass ratio] 1.0 {ratio} [facility] Serum or plasma alkaline jared sphatase measurement (enzymatic activity/volume)Ordered By: Jim Vega on 03-15-2022 ALP [Catalytic activity/Vol] 45 U/L 32-92 [facility] Serum or plasma aspartate am inotransferase measurement (enzymatic activity/volume)Ordered By: Jim Vega on 03-15-2022 AST [Catalytic activity/Vol] 17 U/L 10-42 [facility] Serum or plasma calcium marychuy urement (mass/volume)Ordered By: Jim Vega on 03-15-2022 Calcium [Mass/Vol] 9.4 mg/dL 8.2-10.2 [facility] Serum or plasma chloride nemo surement (moles/volume)Ordered By: Jim Vega on 03-15-2022 Chloride [Moles/Vol] 102 mmol/L 95-114 [facility] Serum or plasma glucose marychuy urement (mass/volume)Ordered By: Jim Vega on 03-15-2022 Glucose [Mass/Vol] 85 mg/dL 70-100 [facility] Comment on above: ADA recommended refe rence range Random Glucose Reference Range is dependent on time and content of last meal. Glucose of more than 200 mg/dL in a nonstressed, ambulatory subject supports the diagnosis of Diabetes Mellitus. Serum or plasma potassium me asurement (moles/volume)Ordered By: Jim Vega on 03-15-2022 Potassium [Moles/Vol] 4.2 mmol/L 3.5-5.1 [facility] Serum or plasma sodium measu rement (moles/volume)Ordered By: Jim Vega on 03-15-2022 Sodium [Moles/Vol] 136 mmol/L 136-146 [facility] Serum or plasma total biliru bin measurement (mass/volume)Ordered By: Jim Vega on 03-15-2022 Bilirubin [Mass/Vol] 0.1 mg/dL 0.3-1.2 [facility] Serum or plasma total carbon dioxide measurement (moles/volume)Ordered By: Jim Vega on 03-15-2022 CO2 [Moles/Vol] 26.3 mmol/L 22.0-30.0 [facility] Serum or plasma urea nitroge n measurement (mass/volume)Ordered By: Jim Vega on 03-15-2022 Urea nitrogen [Mass/Vol] 9 mg/dL 9-23 [facility] Specific gravity Auto test s trip (U) [Rel density]Ordered By: Jim Vega on 03-15-2022 Specific gravity (U) [Rel density] 1.010 1.001-1.03 0 [facility] Squamous epithelial cells de tection in urine sediment by light microscopyOrdered By: Jim Vega on 03-15-2022 Epithelial cells.squamous LM Ql (Urine sed) 0-1 [HPF] 0-2 [facility] Troponin I.cardiac [Mass/vol ume] in Serum or Plasma by High sensitivity methodOrdered By: iJm Vega on 03-15-2022 Troponin I.cardiac High sensitivity method [Mass/Vol] 3 pg/mL 0-15 [facility] Urine bacteria detection by automated methodOrdered By: Jim Vega on 03-15-2022 Bacteria Auto Ql (U) None seen None Seen [facility] Urine clarity by refractomet ry automatedOrdered By: Jim Vega on 03-15-2022 Clarity Refractometry automated (U) Clear Clear [facility] Urine glucose measurement by automated test strip (mass/volume)Ordered By: Jim Vega on 03-15-2022 Glucose Auto test strip (U) [Mass/Vol] Normal mg/dL Normal [facility] Urine hemoglobin detection b y automated test stripOrdered By: Jim Vega on 03-15-2022 Hemoglobin Auto test strip Ql (U) Trace Negative [facility] Urine leukocyte esterase det ection by automated test stripOrdered By: Jim Vega on 03-15-2022 Leukocyte esterase Auto test strip Ql (U) Negative Negative [facility] Urobilinogen Auto test strip (U) [Mass/Vol]Ordered By: Jim Vega on 03-15-2022 Urobilinogen (U) [Mass/Vol] Normal mg/dL Normal [facility] pH Auto test strip (U)Ordere d By: Jim Vega on 03-15-2022 pH (U) 7.5 [pH] 5.0-9.0 [facility] US FINE NEEDLE ASP EXPon US FINE NEEDLE ASP EXP Begin Addendu m #1 COLLECTED DATE/TIME: 02/20/2022 13:18 EST Final Diagnosis Report for [place], [place] (A/B) MASS NEAR SCAR; FINE NEEDLE ASPIRATION: -BLAND APPEARING SHEETS OF EPITHELIAL CELLS AND BLAND APPEARING SPINDLE CELLS, SEE NOTE. NOTE: The findings are nonspecific. The differential diagnosis includes endometriosis among others. Clinical correlation is suggested. 02/27/[address] Pendleton. Verified with Maggy that report was present in office. Original Report EXAMINATION: US FINE NEEDLE ASP EXP HISTORY: Intra-abdominal and pelvic swelling, mass and lump COMPARISON: No relevant comparison available. TECHNIQUE: After obtaining informed consent, ultrasound-guided fine needle aspiration was performed in the usual sterile manner. FINDINGS: IMAGING: Ultrasound. BIOPSY NEEDLE: 25-gauge and 19-gauge 1.5 inch LOCATION: 4.1 x 3.6 x 1.8 cm complex vascular palpable mass deep to the scar SPECIMEN TYPE: 4 fine-needle aspirates, one with a 25-gauge, 3 with a 19-gauge needle. LOCAL ANESTHETIC: 3 mL 1% buffered lidocaine. COMPLICATIONS: None. LABORATORY: Prepared slide smears and washings for cell block evaluation. OTHER: The patient did have pain and the procedure was prematurely terminated. PATHOLOGY: Pending. An addendum will be added when results are available. IMPRESSION: 1. Uneventful ultrasound guided fine needle aspiration (FNA). 2. Pathology results are pending. Normal [facility] US SINGLE QUAD LT LOWERon US SINGLE QUAD LT LOWER EXAMINATION: US SINGLE QUAD LT LOWER HISTORY: Abdominal mass ; palpable lump in area of scar with occasional tenderness COMPARISON: CT abdomen pelvis 01/11/2022 TECHNIQUE: Transabdominal evaluation. FINDINGS: Poorly defined heterogeneous mass within the subcutaneous fat of the lower midline anterior abdominal wall corresponds to patient's palpable lump, 4.1 x 3.4 x 1.7 cm. Color Doppler demonstrates a small amount of internal blood flow. IMPRESSION: 1. Nonspecific vascular mass within subcutaneous fat corresponding to patient's lump. Ultrasound-guided tissue sampling is recommended. Electronically authenticated by: KALPESH FOWLER Date: 2022-02-02 09:33 Normal [facility] CT ABD/PELVIS WO CONon 01-11 CT ABD/PELVIS WO CON EXAMINATION: CT ABD /PELVIS WO CON, 01/11/2022 10:06 AM EDT HISTORY: Pelvic and perineal pain , chronic pain on the left lower quadrant pain COMPARISON: None. TECHNIQUE: CT scan of the abdomen and pelvis was performed without IV contrast. CT dose reduction technique was used, including Automated Exposure Control. The patient drank 8 ounces of oral contrast and refused additional contrast FINDINGS: LUNG BASES: No visible pulmonary or pleural disease. LIVER: No enlargement, atrophy, abnormal density, or significant focal lesion. BILIARY: No dilatation or calcification. PANCREAS: No lesion, fluid collection, ductal dilatation, or atrophy. SPLEEN: No enlargement or focal lesion. ADRENALS: No mass or enlargement. KIDNEYS: No mass, obstruction, or calcification. BOWEL/MESENTERY: No visible mass, obstruction, or bowel wall thickening. AORTA/VASCULAR: No aneurysm or dissection. RETROPERITONEUM: No mass or adenopathy. LYMPH NODES: No adenopathy. URINARY BLADDER: No visible focal wall thickening, lesion, or calculus. PELVIC ORGANS: The uterus and cervix are prominent in size. Pelvic calcifications likely vascular phleboliths ABDOMINAL WALL: 2 cm umbilical hernia containing fat without strangulation. 3.5 x 1.7 x 3.3 cm soft tissue density mass, measuring 64 Hounsfield units, in the left paracentral ventral abdominal fat inseparable from the underlying fascia and abdominal rectus muscle. This lesion is 6 mm below the skin surface. BONES: No bony lesion or fracture. OTHER: Negative. IMPRESSION: 3.5 x 1.7 x 3.3 cm soft tissue density mass ventral abdominal fat inseparable from the left rectus muscle. This is of unknown etiology. Consider ultrasound follow-up for further evaluation 2 cm umbilical hernia without strangulation Electronically authenticated by: JENN GREWAL Date: 2022-01-11 11:40 Normal [facility] Vital Signs Date Time Vital Sign Value Performing Clinician Facility 09-28-2023 14:34-0500 Body weight 73.93 kg BETTY Lopez Work Phone: [facility] 09-28-2023 14:34-0500 Diastolic blood pressure 79 mm[Hg] BETTY Lopez Work Phone: [facility] 09-28-2023 14:34-0500 Heart rate 66 /min CLERICAL ADJUSTER Yudelka Lopez Work Phone: [facility] 09-28-2023 14:34-0500 Respiratory rate 20 /min BETTY Lopez Work Phone: [facility] 09-28-2023 14:34-0500 SaO2% (BldA) [Mass fraction] 100 % BETTY Lopez Work Phone: [facility] 09-28-2023 14:34-0500 Systolic blood pressure 119 mm[Hg] BETTY Lopez Work Phone: [facility] 06-27-2023 10:33-0400 Body height 157.48 cm BETTY Lopez Work Phone: [facility] 06-27-2023 10:33-0400 Body temperature 97.7 [degF] BETTY Lopez Work Phone: [facility] 06-27-2023 10:33-0400 Body weight 72.52 kg BETTY Lopez Work Phone: [facility] 06-27-2023 10:33-0400 Diastolic blood pressure 80 mm[Hg] CLERICAL ADJUSTERFamilia Lopez Work Phone: [facility] 06-27-2023 10:33-0400 Heart rate 80 /min BETTY Lopez Work Phone: [facility] 06-27-2023 10:33-0400 Respiratory rate 20 /min BETTY Lopez Work Phone: [facility] 06-27-2023 10:33-0400 SaO2% (BldA) [Mass fraction] 100 % BETTY Lopez Work Phone: [facility] 06-27-2023 10:33-0400 Systolic blood pressure 120 mm[Hg] BETTY Lopez Work Phone: [facility] 06-04-2023 18:15-0400 Body height 157.48 cm Marvin Fontenot Other [employer] Other 06-04-2023 18:15-0400 Body mass index (BMI) [Ratio] 30.36 kg/m2 Marvin Fontenot Other [employer] Other 06-04-2023 18:15-0400 Body temperature 98.5 [degF] Marvin Fontenot Other [employer] Other 06-04-2023 18:15-0400 Body weight 75.3 kg Marvin Fontenot Other [employer] Other 06-04-2023 18:15-0400 Respiratory rate 20 /min Marvin Fontenot Other [employer] Other 06-04-2023 18:15-0400 SaO2% (BldA) [Mass fraction] 98 % Marvin Fontenot Other [employer] Other 03-21-2023 15:04-0400 Body weight 73.16 kg CLERICAL ADJUSTER Yudelka Lopez Work Phone: [facility] 03-21-2023 15:04-0400 Diastolic blood pressure 74 mm[Hg] CLERICAL ADJUSTER Yudelka Lopez Work Phone: [facility] 03-21-2023 15:04-0400 Heart rate 109 /min CLERICAL ADJUSTER Yudelka Lopez Work Phone: [facility] 03-21-2023 15:04-0400 Respiratory rate 20 /min CLERICAL ADJUSTER Yudelka Lopez Work Phone: [facility] 03-21-2023 15:04-0400 SaO2% (BldA) [Mass fraction] 99 % CLERICAL ADJUSTER Yudelka Lopez Work Phone: [facility] 03-21-2023 15:04-0400 Systolic blood pressure 134 mm[Hg] CLERICAL ADJUSTER Yudelka Lopez Work Phone: [facility] 02-07-2023 10:42-0400 Diastolic blood pressure 70 mm[Hg] CLERICAL ADJUSTER Yudelka Lopez Work Phone: [facility] 02-07-2023 10:42-0400 Heart rate 82 /min CLERICAL ADJUSTER Yudelka Lopez Work Phone: [facility] 02-07-2023 10:42-0400 Respiratory rate 18 /min CLERICAL ADJUSTER Yudelka oLpez Work Phone: [facility] 02-07-2023 10:42-0400 SaO2% (BldA) [Mass fraction] 97 % CLERICAL ADJUSTER Yudelka Lopez Work Phone: [facility] 02-07-2023 10:42-0400 Systolic blood pressure 118 mm[Hg] CLERICAL ADJUSTER Yudelka Lopez Work Phone: [facility] 02-07-2023 08:15-0400 Body temperature 98 [degF] CLERICAL ADJUSTER Yudelka Lopez Work Phone: [facility] 02-06-2023 10:57-0400 Diastolic blood pressure 54 mm[Hg] CLERICAL ADJUSTER Yudelka Lopez Work Phone: [facility] 02-06-2023 10:57-0400 Heart rate 66 /min CLERICAL ADJUSTER Yudelka Lopez Work Phone: [facility] 02-06-2023 10:57-0400 Respiratory rate 18 /min CLERICAL ADJUSTER Yudelka Lopez Work Phone: [facility] 02-06-2023 10:57-0400 SaO2% (BldA) [Mass fraction] 99 % CLERICAL ADJUSTER Yudelka Lopez Work Phone: [facility] 02-06-2023 10:57-0400 Systolic blood pressure 113 mm[Hg] CLERICAL ADJUSTER Yudelka Lopez Work Phone: [facility] 02-06-2023 09:14-0400 Body height 160.02 cm CLERICAL ADJUSTER Yudelka Lopez Work Phone: [facility] 02-06-2023 09:14-0400 Body temperature 98.1 [degF] CLERICAL ADJUSTER Yudelka Lopez Work Phone: [facility] 02-06-2023 09:14-0400 Body weight 73 kg CLERICAL ADJUSTER Yudelka Lopez Work Phone: [facility] 01-25-2023 12:38-0400 Diastolic blood pressure 74 mm[Hg] CLERICAL ADJUSTER Yudelka Lopez Work Phone: [facility] 01-25-2023 12:38-0400 Heart rate 72 /min CLERICAL ADJUSTER Yudelka Lopez Work Phone: [facility] 01-25-2023 12:38-0400 Respiratory rate 18 /min CLERICAL ADJUSTER Yudelka Lopez Work Phone: [facility] 01-25-2023 12:38-0400 SaO2% (BldA) [Mass fraction] 100 % BETTY Lopez Work Phone: [facility] 01-25-2023 12:38-0400 Systolic blood pressure 101 mm[Hg] BETTY Lopez Work Phone: [facility] 01-25-2023 08:19-0400 Body temperature 98.3 [degF] BETTY Lopez Work Phone: [facility] 01-02-2023 10:31-0400 Body weight 75.2 kg BETTY Lopez Work Phone: [facility] 12-21-2022 10:00-0400 Body height 157.48 cm Imad Asaad Other [employer] [facility] [employer] Other 12-21-2022 10:00-0400 Body mass index (BMI) [Ratio] 30.36 kg/m2 Imad Asaad Other [employer] Other 12-21-2022 10:00-0400 Body weight 75.3 kg Imad Asaad Other [employer] Other 12-21-2022 10:00-0400 Diastolic blood pressure 68 mm[Hg] Imad Asaad Other [employer] Other 12-21-2022 10:00-0400 Systolic blood pressure 115 mm[Hg] Imad Asaad Other [employer] Other 11-28-2022 20:38-0400 Body height 157.48 cm BETTY Lopez Work Phone: [facility] 11-28-2022 20:38-0400 Body temperature 97.9 [degF] BETTY Lopez Work Phone: [facility] 11-28-2022 20:38-0400 Body weight 75.2 kg CLERICAL ADJUSTER Yudelka Lopez Work Phone: [facility] 11-28-2022 20:38-0400 Diastolic blood pressure 72 mm[Hg] CLERICAL ADJUSTER Yudelka Lopez Work Phone: [facility] 11-28-2022 20:38-0400 Heart rate 78 /min CLERICAL ADJUSTER Yudelka Lopez Work Phone: [facility] 11-28-2022 20:38-0400 Respiratory rate 18 /min CLERICAL ADJUSTER Yudelka John Work Phone: [facility] 11-28-2022 20:38-0400 SaO2% (BldA) [Mass fraction] 100 % CLERICAL ADJUSTER Yudelka John Work Phone: [facility] 11-28-2022 20:38-0400 Systolic blood pressure 140 mm[Hg] CLERICAL ADJUSTER Yudelka John Work Phone: [facility] 11-01-2022 12:30-0500 Diastolic blood pressure 66 mm[Hg] CLERICAL ADJUSTER Yudelka John Work Phone: [facility] 11-01-2022 12:30-0500 Heart rate 60 /min CLERICAL ADJUSTER Yudelka John Work Phone: [facility] 11-01-2022 12:30-0500 Respiratory rate 18 /min CLERICAL ADJUSTER Yudelka John Work Phone: [facility] 11-01-2022 12:30-0500 SaO2% (BldA) [Mass fraction] 100 % CLERICAL ADJUSTER Yudelka John Work Phone: [facility] 11-01-2022 12:30-0500 Systolic blood pressure 108 mm[Hg] CLERICAL ADJUSTER Yudelka Lopez Work Phone: [facility] 11-01-2022 10:17-0500 Body temperature 98.9 [degF] CLERICAL ADJUSTER Yudelka Lopez Work Phone: [facility] 10-10-2022 15:05-0500 Diastolic blood pressure 62 mm[Hg] CLERICAL ADJUSTER Yudelka Lopez Work Phone: [facility] 10-10-2022 15:05-0500 Heart rate 68 /min CLERICAL ADJUSTER Yudelka Lopez Work Phone: [facility] 10-10-2022 15:05-0500 Respiratory rate 16 /min CLERICAL ADJUSTER Yudelka Lopez Work Phone: [facility] 10-10-2022 15:05-0500 Systolic blood pressure 111 mm[Hg] CLERICAL ADJUSTER Yudelka Lopez Work Phone: [facility] 10-10-2022 13:05-0500 Body temperature 98.3 [degF] CLERICAL ADJUSTER Yudelka Lopez Work Phone: [facility] 10-10-2022 13:05-0500 SaO2% (BldA) [Mass fraction] 100 % CLERICAL ADJUSTER Yudelka Lopez Work Phone: [facility] 10-03-2022 10:46-0500 Body weight 72.41 kg CLERICAL ADJUSTER Yudelka Lopez Work Phone: [facility] 10-03-2022 10:33-0500 Body height 157.48 cm CLERICAL ADJUSTER Yudelka Lopez Work Phone: [facility] 09-21-2022 14:02-0500 Diastolic blood pressure 54 mm[Hg] CLERICAL ADJUSTER Yudelka Lopez Work Phone: [facility] 09-21-2022 14:02-0500 Heart rate 72 /min CLERICAL ADJUSTER Yudelka Lopez Work Phone: [facility] 09-21-2022 14:02-0500 Respiratory rate 18 /min CLERICAL ADJUSTER Yudelka Lopez Work Phone: [facility] 09-21-2022 14:02-0500 SaO2% (BldA) [Mass fraction] 100 % CLERICAL ADJUSTER Yudelka Lopez Work Phone: [facility] 09-21-2022 14:02-0500 Systolic blood pressure 105 mm[Hg] CLERICAL ADJUSTER Yudelka Lopez Work Phone: [facility] 09-21-2022 12:05-0500 Body height 157.48 cm CLERICAL ADJUSTER Yudelka Lopez Work Phone: [facility] 09-21-2022 12:05-0500 Body temperature 98.2 [degF] CLERICAL ADJUSTER Yudelka Lopez Work Phone: [facility] 09-21-2022 12:05-0500 Body weight 71.6 kg CLERICAL ADJUSTER Yudelka Lopez Work Phone: [facility] 07-04-2022 20:47-0400 Body temperature 98.2 [degF] CLERICAL ADJUSTER Yudelka Lopez Work Phone: [facility] 07-04-2022 20:47-0400 Diastolic blood pressure 72 mm[Hg] CLERICAL ADJUSTER Yudelka Lopez Work Phone: [facility] 07-04-2022 20:47-0400 Heart rate 83 /min CLERICAL ADJUSTER Yudelka Lopez Work Phone: [facility] 07-04-2022 20:47-0400 Respiratory rate 18 /min CLERICAL ADJUSTER Yudelka Lopez Work Phone: [facility] 07-04-2022 20:47-0400 SaO2% (BldA) [Mass fraction] 99 % CLERICAL ADJUSTER Yudelka Lopez Work Phone: [facility] 07-04-2022 20:47-0400 Systolic blood pressure 119 mm[Hg] CLERICAL ADJUSTER Yudelka Lopez Work Phone: [facility] 07-04-2022 18:45-0400 Body height 160.02 cm CLERICAL ADJUSTER Yudelka Lopez Work Phone: [facility] 07-04-2022 18:45-0400 Body weight 73.6 kg CLERICAL ADJUSTER Yudelka Lopez Work Phone: [facility] 06-01-2022 02:30-0400 Diastolic blood pressure 85 mm[Hg] CLERICAL ADJUSTER Yudelka Lopez Work Phone: [facility] 06-01-2022 02:30-0400 Heart rate 71 /min CLERICAL ADJUSTER Yudelka Lopez Work Phone: [facility] 06-01-2022 02:30-0400 Respiratory rate 16 /min CLERICAL ADJUSTERFamilia Lopez Work Phone: [facility] 06-01-2022 02:30-0400 SaO2% (BldA) [Mass fraction] 100 % CLERICAL ADJUSTERFamilia Lopez Work Phone: [facility] 06-01-2022 02:30-0400 Systolic blood pressure 111 mm[Hg] CLERICAL ADJUSTERFamilia Lopez Work Phone: [facility] 06-01-2022 01:29-0400 Body height 160.02 cm BETTY Lopez Work Phone: [facility] 06-01-2022 01:29-0400 Body temperature 98 [degF] BETTY Lopez Work Phone: [facility] 06-01-2022 01:29-0400 Body weight 73.48 kg BETTY Lopez Work Phone: [facility] 04-07-2022 12:02-0400 Body height 157.81 cm Yudelka Scott Lopez Work Phone: [facility] Work Phone: 04-07-2022 12:02-0400 Body mass index (BMI) [Ratio] 30.42 kg/m2 Yudelka Lopez Work Phone: [facility] Work Phone: 04-07-2022 12:02-0400 Body surface area Derived from formula 1.77 m2 Yudelka Scott Lopez Work Phone: [facility] Work Phone: 04-07-2022 12:02-0400 Body temperature 97.7 [degF] Yudelka Scott Lopez Work Phone: [facility] Work Phone: 04-07-2022 12:02-0400 Body weight 75.75 kg Yudelka Lopez Work Phone: [facility] Work Phone: 04-07-2022 12:02-0400 Diastolic blood pressure 66 mm[Hg] Yudelka Lopez Work Phone: [facility] Work Phone: 04-07-2022 12:02-0400 Heart rate 73 /min Yudelka Sonia Lopez Work Phone: [facility] Work Phone: 04-07-2022 12:02-0400 Respiratory rate 16 /min Yudelka Sonia Lopez Work Phone: [facility] Work Phone: 04-07-2022 12:02-0400 SaO2% (BldA) [Mass fraction] 100 % Yudelka Sonia Lopez Work Phone: [facility] Work Phone: 04-07-2022 12:02-0400 Systolic blood pressure 137 mm[Hg] Yudelka Lopez Work Phone: [facility] Work Phone: 04-07-2022 12:02-0400 0 1 Yudelka Lopez Work Phone: [facility] Work Phone: Comment on above: [employer] 04-05-2022 00:01-0400 Diastolic blood pressure 63 mm[Hg] CLERICAL ADJUSTERFamilia Jha Lopez Work Phone: [facility] 04-05-2022 00:01-0400 Heart rate 59 /min CLERICAL ADJUSTER Yudelka Lopez Work Phone: [facility] 04-05-2022 00:01-0400 Respiratory rate 20 /min CLERICAL ADJUSTER Yudelka Lopez Work Phone: [facility] 04-05-2022 00:01-0400 SaO2% (BldA) [Mass fraction] 100 % CLERICAL ADJUSTER Yudelka Lopez Work Phone: [facility] 04-05-2022 00:01-0400 Systolic blood pressure 117 mm[Hg] BETTY Lopez Work Phone: [facility] 04-04-2022 17:01-0400 Body height 157.48 cm BETTY Lopez Work Phone: [facility] [facility] 04-04-2022 17:01-0400 Body mass index (BMI) [Ratio] 30.4 kg/m2 BETTY Lopez Work Phone: [facility] 04-04-2022 17:01-0400 Body temperature 98.7 [degF] BETTY Lopez Work Phone: [facility] 04-04-2022 17:01-0400 Body weight 75.6 kg BETTY Lopez Work Phone: [facility] 03-24-2022 11:38-0400 Body height 157.81 cm Unknown Unknown KY-Vcjyvhvji-Clu dman Work Phone: 03-24-2022 11:38-0400 Body mass index (BMI) [Ratio] 30.08 kg/m2 Unknown Unknown YP-Qadvikmzq-Gpvxwjt Work Phone: 03-24-2022 11:38-0400 Body surface area Derived from formula 1.76 m2 Unknown Unknown OV-Wpljqngjw-Ttfxbxe Work Phone: 03-24-2022 11:38-0400 Body temperature 98.24 [degF] Unknown Unknown PY-Kzochburf-Mh idman Work Phone: 03-24-2022 11:38-0400 Body weight 74.9 kg Unknown Unknown XA-Dlhixynrk-Rvq dman Work Phone: 03-24-2022 11:38-0400 Diastolic blood pressure 78 mm[Hg] Unknown Unknown BI-Xucjhqxru-Dfgdzms Work Phone: 03-24-2022 11:38-0400 Heart rate 82 /min Unknown Unknown SY-Omlkvjotk-Zhi dman Work Phone: 03-24-2022 11:38-0400 Respiratory rate 16 /min Unknown Unknown RV-Otknvdogq-Do idman Work Phone: 03-24-2022 11:38-0400 SaO2% (BldA) [Mass fraction] 100 % Unknown Unknown DM-Nhryrlamq-Nmbosul Work Phone: 03-24-2022 11:38-0400 Systolic blood pressure 130 mm[Hg] Unknown Unknown VX-Jfibydbhd-Nniglxz Work Phone: 03-24-2022 11:38-0400 6 1 Unknown Unknown WY-Jbiloyqen-Ori dman Work Phone: Comment on above: [employer] 03-15-2022 21:05-0400 Diastolic blood pressure 67 mm[Hg] CLERICAL ADJUSTER Yudelka Lopez Work Phone: [facility] 03-15-2022 21:05-0400 Heart rate 72 /min CLERICAL ADJUSTER Yudelka Lopez Work Phone: [facility] 03-15-2022 21:05-0400 Respiratory rate 18 /min CLERICAL ADJUSTER Yudelka Lopez Work Phone: [facility] 03-15-2022 21:05-0400 SaO2% (BldA) [Mass fraction] 100 % CLERICAL ADJUSTER Yudelka Lopez Work Phone: [facility] 03-15-2022 21:05-0400 Systolic blood pressure 127 mm[Hg] CLERICAL ADJUSTERFamilia Jha Lopez Work Phone: [facility] 03-15-2022 19:22-0400 Body height 157.48 cm CLERICAL ADJUSTER Yudelka Lopez Work Phone: [facility] 03-15-2022 19:22-0400 Body mass index (BMI) [Ratio] 30.9 kg/m2 CLERICAL ADJUSTER Yudelka Lopez Work Phone: [facility] 03-15-2022 19:22-0400 Body temperature 98.6 [degF] BETTY Yudelka Lopez Work Phone: [facility] 03-15-2022 19:22-0400 Body weight 76.7 kg CLERICAL ADJUSTERFamilia Lopez Work Phone: [facility] 03-04-2022 01:04-0400 Body height 157.48 cm CLERICAL ADJUSTERFamilia Lopez Work Phone: [facility] 03-04-2022 01:04-0400 Body mass index (BMI) [Ratio] 30.4 kg/m2 CLERICAL ADJUSTERFamilia Lopez Work Phone: [facility] 03-04-2022 01:04-0400 Body weight 75.55 kg CLERICAL ADJUSTERFamilia Lopez Work Phone: [facility] 03-04-2022 01:01-0400 Body temperature 98.1 [degF] BETTY Lopez Work Phone: [facility] 03-04-2022 01:01-0400 Diastolic blood pressure 80 mm[Hg] CLERICAL ADJUSTER Yudelka Lopez Work Phone: [facility] 03-04-2022 01:01-0400 Heart rate 81 /min CLERICAL ADJUSTERFamilia Lopez Work Phone: [facility] 03-04-2022 01:01-0400 Respiratory rate 18 /min BETTY Lopez Work Phone: [facility] 03-04-2022 01:01-0400 SaO2% (BldA) [Mass fraction] 97 % BETTY Lopez Work Phone: [facility] 03-04-2022 01:01-0400 Systolic blood pressure 129 mm[Hg] BETTY Lopez Work Phone: [facility] Encounters Encounter Date Encounter Type Care Provider Facility Start: 02-19-2024 End: 02-19-2024 ambulatory MALCOLM ODILIA Not Available Start: 01-10-2024 End: 01-10-2024 ambulatory MALCOLM ODILIA Not Available Start: 12-10-2023 End: 12-11-2023 ambulatory Malagon July Simental Facility:[facility] Start: 12-10-2023 End: 12-10-2023 Patient encounter procedure Manas Simental [facility] Start: 11-27-2023 End: 11-27-2023 ambulatory MALCOLM PENDLETON Not Available Start: 11-24-2023 End: 11-24-2023 Emergency department patient visit Jim Rincon Silvia Facility:[facility] Start: 11-13-2023 End: 11-13-2023 Emergency department patient visit Frank Silva Facility:[facility] Start: 09-28-2023 End: 09-28-2023 ambulatory CLERICAL ADJUSTERFamilia Lopez Work Phone: [facility] Work Phone: Start: 09-28-2023 End: 09-28-2023 Registered Recurring BETTY Lopez Work Phone: [facility]Cancer Center Work Phone: Start: 09-27-2023 End: 09-27-2023 ambulatory Yudelka Lopez Facility:[facility] Start: 09-27-2023 End: 09-27-2023 ambulatory CLERICAL ADJUSTER Yudelka Lopez Work Phone: [facility] Work Phone: Start: 09-27-2023 End: 09-27-2023 Departed Referred [facility] Start: 09-27-2023 Registered Recurring BETTY Lopez Work Phone: [facility] Work Phone: Start: 06-27-2023 End: 06-27-2023 ambulatory CLERICAL ADJUSTER Yudelka Lopez Work Phone: [facility] Work Phone: Start: 06-27-2023 End: 06-27-2023 Registered Recurring BETTY Lopez Work Phone: [facility] Work Phone: Start: 06-14-2023 End: 06-14-2023 ambulatory Dayne Horton Facility:[facility] Start: 06-14-2023 Registered Recurring CLERICAL ADJUSTER Howard Lopez [facility] [place] Work Phone: Start: 06-14-2023 End: 06-14-2023 ambulatory CLERICAL ADJUSTER Yudelka Lopez Work Phone: [facility] Work Phone: Start: 06-14-2023 End: 06-14-2023 Patient encounter procedure BETTY Lopez Work Phone: [facility] [place] Work Phone: Start: 06-04-2023 End: 06-04-2023 ambulatory Marvin Po Other [employer] Other Start: 06-04-2023 Office outpatient visit 15 minutes Marvin Captree [facility] Start: 04-24-2023 End: 04-25-2023 ambulatory Kelly Ryanmagnoliacristel Facility:[facility] Start: 04-24-2023 End: 04-24-2023 Patient encounter procedure Lex Elizabeth [facility] General [facility] [place] Start: 04-03-2023 ambulatory Lex Elizabeth Facilit y:[facility] Start: 03-21-2023 End: 03-21-2023 ambulatory BETTY Lopez Work Phone: [facility] Work Phone: Start: 03-21-2023 End: 03-21-2023 Registered Recurring BETTY Lopez Work Phone: [facility] Work Phone: Start: 03-14-2023 End: 03-14-2023 ambulatory Yudelka Lopez Facility:[facility] Start: 03-14-2023 End: 03-14-2023 ambulatory CLERICAL ADJUSTER Yudelka Paulino Lopez Work Phone: [facility] Work Phone: Start: 03-14-2023 End: 03-14-2023 Patient encounter procedure CLERICAL ADJUSTER Yudelka Lopez Work Phone: [facility] [place] Work Phone: Start: 02-07-2023 Registered Recurring CLERICAL ADJUSTER Howard kita John Work Phone: [facility] Work Phone: Start: 02-06-2023 End: 02-06-2023 Emergency department patient visit Jim Rincon Silvia Facility:[facility] Start: 02-06-2023 End: 02-06-2023 Emergency department patient visit CLERICAL ADJUSTERFamilia Lopez Work Phone: [facility]-Emergency Room Work Phone: Start: 01-29-2023 End: 01-29-2023 ambulatory Imad Asaad Facility:[facility] Start: 01-29-2023 End: 01-29-2023 ambulatory CLERICAL ADJUSTER Yudelka Paulino Lopez Work Phone: [facility] Work Phone: Start: 01-29-2023 End: 01-29-2023 Patient encounter procedure CLERICAL ADJUSTERFamilia Jha Lopez Work Phone: [facility]Nuc [facility] [place] Work Phone: Start: 01-25-2023 Registered Recurring CLERICAL ADJUSTER Howard kita John Work Phone: [facility] Work Phone: Start: 01-24-2023 End: 01-25-2023 ambulatory Yudelka Lorakavita Lopez Facility:[facility] Start: 01-24-2023 End: 01-24-2023 ambulatory CLERICAL ADJUSTER Yudelka Lopez Work Phone: [facility] Work Phone: Start: 01-24-2023 End: 01-24-2023 Discharged Recurring CLERICAL ADJUSTERFamilia Jha Lopez Work Phone: [facility]-Physical Therapy [address] Start: 12-25-2022 End: 12-25-2022 ambulatory Imad Asaad Facility:[facility] Start: 12-25-2022 End: 12-25-2022 ambulatory BETTY Lopez Work Phone: [facility] Work Phone: Start: 12-25-2022 End: 12-25-2022 Patient encounter procedure BETTY Yudelka Lopez Work Phone: [facility] [place] Work Phone: Start: 12-25-2022 Registered Recurring BETTY Lopez Work Phone: [facility]-Physical Therapy [address] Start: 12-22-2022 End: 12-22-2022 ambulatory Imad Asaad Other [employer] Other Start: 12-22-2022 Telephone encounter Imad Asaad [facility] Start: 12-21-2022 End: 12-21-2022 ambulatory Imad Asaad Other [employer] Other Start: 12-21-2022 [facility] visit new patient Imad Asaad [facility] Start: 12-07-2022 End: 12-07-[address] DOCTOR MARI Facility:[facility] Start: 11-29-2022 End: 11-30-[address] MALCOLM PENDLETON . Facility:[facility] Start: 11-28-2022 End: 11-28-2022 Emergency department patient visit Allegra Vega Facility:[facility] Start: 11-28-2022 End: 11-28-2022 Emergency department patient visit BETTY Lopez Work Phone: [facility]-Emergency Room Work Phone: Start: 11-01-2022 Registered Recurring BETTY Lopez Work Phone: [facility] Work Phone: Start: 10-12-2022 End: 10-12-2022 ambulatory CLERICAL ADJUSTERFamilia Lopez Work Phone: [facility] Work Phone: Start: 10-12-2022 End: 10-12-2022 Patient encounter procedure BETTY Lopez Work Phone: [facility] [place] Work Phone: Start: 10-10-2022 Registered Recurring BETTY Lopez Work Phone: [facility] Work Phone: Start: 10-02-2022 End: 10-02-2022 ambulatory CLERICAL ADJUSTERFamilia Lopez Work Phone: [facility] Work Phone: Start: 10-02-2022 End: 10-02-2022 Patient encounter procedure BETTY Lopez Work Phone: [facility] [place] Work Phone: Start: 09-21-2022 End: 09-21-2022 Emergency department patient visit BETTY Lopez Work Phone: [facility]Emergency [facility] Work Phone: Start: 09-15-2022 End: 09-15-2022 ambulatory BETTY Lopez Work Phone: [facility] Work Phone: Start: 09-15-2022 End: 09-15-2022 Patient encounter procedure BETTY Lopez Work Phone: [facility] [place] Work Phone: Start: 08-05-2022 End: 08-06-[address] MALCOLM PENDLETON . Facility: Start: 07-28-2022 End: 07-29-[address] MALCOLM PENDLEOTN . Facility:[facility] Start: 07-04-2022 End: 07-04-2022 Emergency department patient visit CLERICAL ADJUSTER Yudelka Lopez Work Phone: [facility]Emergency [facility] Start: 07-03-2022 End: 07-03-[address] MALCOLM PENDLETON . Facility:[facility] Start: 06-01-2022 End: 06-01-2022 Emergency department patient visit CLERICAL ADJUSTER Yudelka Lopez Work Phone: [facility]Emergency Room Start: 04-21-2022 Patient encounter procedure Yudelka Scott John Work Phone: [facility] Work Phone: Start: 04-21-2022 Postop follow up visit related to original px Yudelka Sonia Lopez Work Phone: [facility] Work Phone: Start: 04-18-2022 End: 04-19-[address] DOCTOR MARI Facility:[facility] Start: 04-17-2022 Chart Update Yudelka Scott Lopez Work Phone: [facility] Work Phone: Start: 04-14-2022 End: 04-14-2022 Departed Referred BETTY Lopez Work Phone: [facility] Start: 04-11-2022 End: 04-11-[address] REBECCA GALVEZ Facility:[facility] Start: 04-07-2022 Postop follow up visit related to original px Yudelka Scott John Work Phone: [facility] Work Phone: Start: 04-04-2022 End: 04-05-2022 Emergency department patient visit CLERICAL ADJUSTER Yudelka Lopez Work Phone: [facility]-Emergency Room Start: 04-04-2022 AUDIT Yudelka Lopez Work Phone: [facility] Work Phone: Start: 03-31-2022 End: 03-31-2022 Patient encounter procedure BETTY Lopez Work Phone: [facility] [facility] Start: 03-24-2022 Patient encounter procedure Unknown Unknown XV-Liqrwjsvz-Naqhmsl Work Phone: Start: 03-15-2022 End: 03-15-2022 Emergency department patient visit BETTY Lopez Work Phone: [facility]Emergency [facility] Start: 03-04-2022 End: 03-04-2022 Emergency department patient visit BETTY Lopez Work Phone: [facility]Emergency [facility] Start: 02-20-2022 End: 02-20-[address] ALFIE MATTHEWS Facility:[facility] Start: 02-02-2022 End: 02-03-[address] ALFIE MATTHEWS Facility:[facility] Start: 01-11-2022 End: 01-12-[address] ALFIE MATTHEWS Facility:[facility] Procedures Date Procedure Procedure Detail Performing Clinician Start: 03-14-2023 MRI of cervical spine without contrast BETTY Lopez Work Phone: Start: 01-29-2023 Radionuclide gastric emptying study BETTY Lopez Work Phone: Start: 11-28-2022 X-ray of left foot BETTY Lopez Work Phone: Start: 10-02-2022 US scan of thyroid BETTY Lopez Work Phone: Start: 10-02-2022 X-ray of cervical spine BETTY christina Work Phone: Start: 09-21-2022 SARS-CoV-2, Influenza & RSV (PCR) BETTY Lopez Work Phone: Start: 09-21-2022 Plain chest X-ray BETTY Lopez Work Phone: Start: 09-15-2022 Plain chest X-ray BETTY Lopez Work Phone: Start: 07-04-2022 Computed tomography of abdomen and pelvis with contrast BETTY Lopez Work Phone: Start: 04-04-2022 CT angiography of thorax BETTY begum Work Phone: Start: 04-04-2022 Plain chest X-ray BETTY Lopez Work Phone: Start: 03-15-2022 Plain chest X-ray BETTY Lopez Work Phone: Start: 02-12-2020 Colonoscopy Lex Glenn Comment on above: Poor prep Start: 02-12-2020 Esophagogastroduodenoscopy Lex Glenn Start: 09-03-2019 section Lex Elizabeth section Lex christina None (qualifier value) Lex Elizabeth Plan of Treatment Date Care Activity Detail Author Start: 08-07-2023 [facility] Start: 07-24-2023 [facility] Start: 02-07-2023 [facility] Start: 01-31-2023 [facility] Start: 01-26-2023 End: 01-26-2023 [facility] Start: 01-24-2023 End: 01-25-2023 [facility] Start: 11-28-2022 X-ray of left foot XR foot LT min 3V * [facility] Start: 11-28-2022 XR Foot - left GE 3 Views [facility] Start: 11-01-2022 [facility] Start: 10-24-2022 End: 10-25-2022 [facility] Start: 10-17-2022 [facility] Start: 10-13-2022 [facility] Start: 10-12-2022 End: 10-13-2022 [facility] Start: 10-10-2022 [facility] Start: 04-21-2022 POV, Provider: Sly Crocker, Status: Pen, Time: 10:30 AM POV, Provider: Sly Crocker, Status: Pen, Time: 10:30 AM [facility] Work Phone: Albumin [Mass/volume ] in Serum or Plasma [facility] Albumin/Globulin ratio [facility] Calprotectin [Mass/m ass] in Stool [facility] Comprehensive metabo lic 1999 panel - Serum or Plasma [facility] Comprehensive metabo lic 1999 panel - Serum or Plasma [facility] Comprehensive metabo lic 1999 panel - Serum or Plasma [facility] Comprehensive metabo lic 1999 panel - Serum or Plasma [facility] Copper measurement [facility] Electrophoresis: [id number] [facility] Electrophoresis: [id number] [facility] Electrophoresis: beta-globulin [facility] Electrophoresis: manohar ma globulin [facility] Endomysial antibody IgA level [facility] Erythrocyte sediment ation rate by Photometric method [facility] Erythropoietin (EPO) [Units/volume] in Serum or Plasma [facility] Ferritin [Mass/volum e] in Serum or Plasma [facility] Gliadin peptide IgA Ab [Units/volume] in Serum [facility] Gliadin peptide IgG Ab [Units/volume] in Serum [facility] Globulin [Mass/volum e] in Serum [facility] HIV 1+2 Ab+HIV1 p24 Ag [Presence] in Serum or Plasma by Immunoassay [facility] IgA [Mass/volume] in Serum or Plasma [facility] IgA [Mass/volume] in Serum or Plasma [facility] IgG [Mass/volume] in Serum or Plasma [facility] IgM [Mass/volume] in Serum or Plasma [facility] [place] light chains.f ree [Mass/volume] in Serum [facility] [place] light chains.free/Lambda light chains.free [Mass Ratio] in Serum [facility] Lactate dehydrogenas e [Enzymatic activity/volume] in Unspecified specimen [facility] Lambda light chains. free [Mass/volume] in Serum or Plasma [facility] Patient Education [facility] Work Phone: Patient referral [facility] Work Phone: Protein [Mass/volume ] in Serum or Plasma [facility] Reagin Ab [Presence] in Serum by RPR [facility] Serum immunofixation [facility] Thyroglobulin Ab [Units/volume] in Serum or Plasma [facility] Thyroperoxidase Ab [Units/volume] in Serum or Plasma [facility] Thyrotropin receptor Ab [Units/volume] in Serum [facility] Tissue transglutamin ase IgA Ab [Units/volume] in Serum [facility] Tissue transglutamin ase IgG Ab [Units/volume] in Serum [facility] Immunizations Immunization Date Immunization Notes Care Provider [facility] 09-01-2021 influenza virus vaccine, unspecified formulation Malagon Sarmini [facility] 01-10-2016 tetanus toxoid, reduced diphtheria toxoid, and acellular pertussis vaccine, adsorbed Malagon Sarmini [facility] 09-30-2009 hepatitis A vaccine, unspecified formulation Malagon Sarmini [facility] 09-30-2009 hepatitis B vaccine, pediatric or pediatric/adolescent dosage Malagon Sarmini [facility] 05-27-2009 hepatitis B vaccine, pediatric or pediatric/adolescent dosage Malagon Sarmini [facility] 03-22-2009 hepatitis A vaccine, unspecified formulation Malagon Sarmini [facility] 03-22-2009 hepatitis B vaccine, pediatric or pediatric/adolescent dosage Malagon Sarmini [facility] 03-22-2009 measles, mumps and rubella virus vaccine Malagon Sarmini [facility] 03-22-2009 meningococcal ACWY vaccine, unspecified formulation Malagon Chuchomini [facility] 03-22-2009 tetanus toxoid, reduced diphtheria toxoid, and acellular pertussis vaccine, adsorbed Malagon Sarmini [facility] NEGATED: Highlighted row has not occurred!12-07-2023 influenza virus vaccine, unspecified formulation Malagon Chuchomini [facility] Payers Date Payer Category Payer Self-pay [id number] 1990 Unknown [id number] 2.16.84 [id number] 1990 Unknown [id number] 2.16.84 [id number] 1992 Unknown [id number] 2.16.84 [id number] 1992 Unknown [id number] 2.16.84 0.1.926888.3.579.2.593 1992 Unknown [id number] 2.16.84 0.1.498267.3.579.2.593 1992 Unknown [id number] 2.16.84 0.1.938800.3.579.2.593 1992 Unknown [id number] 2.16.84 0.1.916873.3.579.2.593 1992 Unknown [id number] 2.16.84 0.1.443794.3.579.2.593 1992 Unknown [id number] 2.16.84 0.1.635680.3.579.2.593 1992 Unknown [id number] 2.16.84 0.1.283647.3.579.2.593 1992 Unknown [id number] 2.16.8 40.1.911297.3.579.2.727 1992 Unknown [id number] 2.16.8 40.1.376120.3.579.2.727 1992 Unknown [id number] 2.16.84 0.1.252518.3.579.2.1259 1992 Unknown [id number] 2.16.84 0.1.525023.3.579.2.1259 1992 Unknown [id number] 2.16.84 0.1.555803.3.579.2.1259 1959 Private Health Insurance [id number] Private Health Insurance [id number] Private Health Insurance [id number] Worker's Compensation [id number] Social History Date Type Detail Facility Start: 11-19-2020 End: 04-04-2022 Tobacco smoking status NHIS Never smoked tobacco (finding) [facility] Start: 1990 Sex Assigned At Female F [facility] Sex Assigned At [facility] Tobacco smoking status Never [facility] Goals Date Patient Goal Desired Activity /State Clinical Notes 04-03-2022 to 07-04-2023 Note Date & Type Note Facility 07-04-2023 Progress note Note Date/Time June 27, 2023 10:[address] [place] [address] [facility] at [address] [address] Hem/Onc Follow Up Note - OP Signed Patient: Leandra Fonseca MR#: [id number] : 1990 Acct:[id number] Age/Sex: 33 / F Type: REG RCR Copies to: Yudelka Lopez APRN, COFFEE SOMMELIER-C~ Date of Service: 06/27/2023 Time of Service: 10:36 - Assessment & Plan (1) Iron deficiency anemia due to chronic blood loss Plan: Iron deficiency anemia d/t chronic blood loss from heavy menses She has irregular periods that can occur 1-2 times per month, and last 7-10 dayseach time. She follows with gynecology for endometriosis and is considering an IUD to help control her bleeding She has been on oral iron supplementation for a few months without improvement in symptoms. We will repeat iron studies at consult Sep 2022 and if she remains low, will plan to replete with IV Venofer IV iron given September repeat labs with improved counts, but not yet normal. She remains symptomatic as well, so will replete with additional IV iron March 2023 labs with normal iron saturation and elevated ferritin. Asymptomatic. Additional labs checked for MRI abnormality and essentially negative. Peripheralsmear and MRI images reviewed with Dr. Cobos, who confirms this does not need further work-up at this time Jun 2023 iron studies ok but remains anemic. Paraproteins ok. We discussed previous testing for anemia, thalassemia. She believes she had this done at [facility] in [place] in 2019. We will request these records, and if they are not available, will plan repeat testing including [facility] folate, copper, epo, reticulocytes, haptoglobin, LDH, and christiano testing. B12 deficiency Will initiate weekly B12 injections x 4, then switch to monthly Follow Up Instructions: b12 weekly x 4 then monthly get [facility] records from 2019- hgb electrophoresis, thalassemia testing cbc, cmp, b12, folate, copper, epo, retic, haptoglobin, cooms, ldh cbc, cmp, iron studies, b12, folate, epo in 3mo follow-up in 3mo - History of Present Illness Chief Complaint: Patient is here for a 3 month follow up with labs for review. No concerns voiced at this time. HPI: Leandra is a 32 year old female with a history of costochondritis, anemia, lymphedema, atypical chest pain, nausea, asthma, endometriosis and cervical adenopathy. Surgical history includes . She has no personal history of cancer. Family history of cancer includes her paternal grandfather, she is unclear which type of cancer he had. Medications include albuterol sulfate, amitriptyline, ferrous sulfate, fluticasone propionate, and ondansetron. She is referred by Yudelka Lopez NP for her iron deficiency anemia. Most recent cbc with hgb 9.9 and low MCV, MCH. Wbc count and platelets WNL. Chemistries reveal normal creatinine, calcium, protein, albumin, LFTs. Iron studies have notbeen repeated since January 2022, will repeat these. In review of her menstrual history, she notes her first cycle was at age 14. They are irregular and can occur 1-2 times per month, lasting 7-10 days each time. Of those days, about 3 of them are heavy. She goes thru on average 3 pads/day. She has known endometriosis and is following with gynecology to try an IUD for better control of her bleeding. On exam she is having fatigue, shortness of breath, ice cravings and dizziness. She also notes some nausea with her iron supplement as well as chronic constipation. She denies vomiting, constipation, chest pain, new bone pain, fevers, chills, sweats, weight loss. Recently she has noted some tingling in herneck and left arm as well as the left side of her face. She denies any drooping,slurred speech, vision changes, weakness or other related complaints. We discussed following up with Yudelka regarding these symptoms and going to the ER with worsening symptoms. She notes feeling better since she received her initial iron infusions, but energy is still not great She continues with some dyspnea and mild ice cravings denies new complaints. Her periods are [employer] now on control. Her heavy days she will only go thru maybe 2 pads/day. labs with hgb 11, iron sat 46.5% and ferritin 58.3 03/21/23 she is doing well overall, energy is good she denies new complaints she had an MRI done by pcp that noted Bone marrow is hypointense on T1 in respect to intervertebral disc throughout the cervical and upper thoracic spine.This may represent red marrow conversion which may be physiologic or secondary to anemia. However, a marrow replacing process is not excluded. will get labs today after visit and call with concerning results 06/27/23 she is doing well overall she denies any new complaints iron studies good- saturation 32.6%, ferritin 146. Hgb remains low at 10.6 - Physical Exam Constitutional: No acute distress, well-nourished, alert/oriented x3, cooperative HEENT: Head: Normocephalic Eyes: EOMI, PERRL, clear conjunctiva ENT: Moist mucous membrane, oropharynx clear, nares patent Neck: Supple, full range of motion, no lymphadenopathy, no tenderness Respiratory: No accessory muscle use, anterior and posterior chest clear, no rales, no respiratory distress no rhonchi, no wheeze, room air Cardiovascular: S1-S2 no murmur, no rubs, no gallop, no peripheral edema Gastrointestinal: Normal active bowel sounds, mild abdominal tenderness, no distention, no mass, no organomegaly noted Skin: Intact, dry, warm, normal turgor Neurologic: Alert, oriented x3, cranial nerves II-XII intact, reflexes, moving all extremities, vision grossly intact, hearing grossly intact, normal speech, normal gait, no tremors Psychiatric: Normal affect, normal thought process, cooperative - Time with Patient Coordination of Care & Counseling Time: Greater than 50% of time spent with patient was for coordination of care (as documented) and [id number] counseling of patient and/or family. [facility] - Medical History Medical History: Medical History (Last Reviewed 02/06/23 @ 09:40 by Marguerite Peraza RN) Anemia Asthma Endometriosis Hypertension affecting Pre-eclampsia - Surgical History Surgical History: Surgical History (Last Reviewed 02/06/23 @ 09:40 by Marguerite Peraza RN) History of section - Family History Family History: Family History (Last Updated 10/03/22 @ 10:41 by Mya Mckeon) Father Myocardial infarction Mother Hypertension Mother Diabetes Grandparent Cancer bone - Social History Smoking Status: Never smoker Substance Use Type: None Substance Abuse Comment: occ. alcohol Additional Data - Additional Objective Data Height/Weight: Height 5 ft 2 in Weight 72.529 kg Vital Signs: 06/27/23 10:33 Temperature 97.7 F Pulse Rate [Left Brachial] 80 Pulse Rate [Right Brachial] 80 Respiratory Rate 20 Blood Pressure [Right Arm] 120/80 02 Sat by Pulse Oximetry 100 Oxygen Delivery Method Room Air - Lab Results Diagram of Most Recent CBC and CMP 06/14/23 08:36 06/14/23 08:36 - Home Medications and Allergies Allergies/Adverse Reactions: Allergies labetalol Allergy (Verified 02/07/23 08:23) Difficulty Breathing THYROID MEDICATION Allergy (Uncoded 01/02/23 10:30) Rash Home Medications: Home Medications No known home meds 06/27/23 [History Confirmed 06/27/23] Dictated By: Kelly Hough APRN DD/ 1036 Signed By: <Electronically signed by BETTY Hough> 07/03/23 6651 [facility] Work Phone: 1([phone]) 157-793909-18-2023 Evaluation note* Encounter Date Diagnosis Assessment Notes Treatment Notes Treatment Clinical Notes May, Rash and nonspecific skin eruption (ICD-10 - R21) 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 Given return precautions. [employer] Other 07-18-2023 Progress note Author Kelly Hough [facility] April 03, 2023 9:16am Note Date/Time March 21, 2023 3:35p [facility] [place] [address] Hem/Onc Follow Up Note - OP Signed Patient: Leandra Fonseca MR#: [id number] : 1990 Acct:[id number] Age/Sex: 32 / F Type: REG RCR Copies to: Yudelka Lopez APRN, NP-C~ Subjective Date/Time of Service: Date of Service: 03/21/2023 Time of Service: 15:35 Chief Complaint: Patient is here for a 2 month follow up with labs for review. NO concerns voiced at this time. HPI: Leandra is a 32 year old female with a history of costochondritis, anemia, lymphedema, atypical chest pain, nausea, asthma, endometriosis and cervical adenopathy. Surgical history includes . She has no personal history of cancer. Family history of cancer includes her paternal grandfather, she is unclear which type of cancer he had. Medications include albuterol sulfate, amitriptyline, ferrous sulfate, fluticasone propionate, and ondansetron. She is referred by Yudelka Lopez NP for her iron deficiency anemia. Most recent cbc with hgb 9.9 and low MCV, MCH. Wbc count and platelets WNL. Chemistries reveal normal creatinine, calcium, protein, albumin, LFTs. Iron studies have notbeen repeated since January 2022, will repeat these. In review of her menstrual history, she notes her first cycle was at age 14. They are irregular and can occur 1-2 times per month, lasting 7-10 days each time. Of those days, about 3 of them are heavy. She goes thru on average 3 pads/day. She has known endometriosis and is following with gynecology to try an IUD for better control of her bleeding. On exam she is having fatigue, shortness of breath, ice cravings and dizziness. She also notes some nausea with her iron supplement as well as chronic constipation. She denies vomiting, constipation, chest pain, new bone pain, fevers, chills, sweats, weight loss. Recently she has noted some tingling in herneck and left arm as well as the left side of her face. She denies any drooping,slurred speech, vision changes, weakness or other related complaints. We discussed following up with Yudelka regarding these symptoms and going to the ER with worsening symptoms. She notes feeling better since she received her initial iron infusions, but energy is still not great She continues with some dyspnea and mild ice cravings denies new complaints. Her periods are [employer] now on control. Her heavy days she will only go thru maybe 2 pads/day. labs with hgb 11, iron sat 46.5% and ferritin 58.3 03/21/23 she is doing well overall, energy is good she denies new complaints she had an MRI done by pcp that noted Bone marrow is hypointense on T1 in respect to intervertebral disc throughout the cervical and upper thoracic spine.This may represent red marrow conversion which may be physiologic or secondary to anemia. However, a marrow replacing process is not excluded. will get labs today after visit and call with concerning results [facility] - Medical History Medical History: Medical History (Last Reviewed 02/06/23 @ 09:40 by Marguerite Peraza RN) Anemia Asthma Endometriosis Hypertension affecting Pre-eclampsia - Surgical History Surgical History: Surgical History (Last Reviewed 02/06/23 @ 09:40 by Marguerite Peraza RN) History of section - Family History Family History: Family History (Last Updated 10/03/22 @ 10:41 by Mya Mckeon) Father Myocardial infarction Mother Hypertension Mother Diabetes Grandparent Cancer bone - Social History Smoking Status: Never smoker Substance Use Type: None Substance Abuse Comment: occ. alcohol Home Medications & Allergies Allergies labetalol Allergy (Verified 02/07/23 08:23) Difficulty Breathing THYROID MEDICATION Allergy (Uncoded 01/02/23 10:30) Rash Home Medications hydrocortisone acetate 25 mg rectal suppository (Anusol-HC) 25 mg ME DAILY 2 weeks #12 ea 02/06/23 [Rx Confirmed 03/21/23] propylthiouracil 50 mg tablet 50 mg PO DAILY 02/06/23 [History Confirmed 03/21/23] Objective - Height/Weight Height/Weight: Height 5 ft 2 in Weight 73.164 kg - Vital Signs Vital Signs: 03/21/23 15:04 Pulse Rate [Right Brachial] 109 H Respiratory Rate 20 Blood Pressure [Right Arm] 134/74 02 Sat by Pulse Oximetry 99 Oxygen Delivery Method Room Air Physical Exam Narrative: Constitutional: No acute distress, well-nourished, alert/oriented x3, cooperative HEENT: Head: Normocephalic Eyes: EOMI, PERRL, clear conjunctiva ENT: Moist mucous membrane, oropharynx clear, nares patent Neck: Supple, full range of motion, no lymphadenopathy, no tenderness Respiratory: No accessory muscle use, anterior and posterior chest clear, no rales, no respiratory distress no rhonchi, no wheeze, room air Cardiovascular: S1-S2 no murmur, no rubs, no gallop, no peripheral edema Gastrointestinal: Normal active bowel sounds, mild abdominal tenderness, no distention, no mass, no organomegaly noted Skin: Intact, dry, warm, normal turgor Neurologic: Alert, oriented x3, cranial nerves II-XII intact, reflexes, moving all extremities, vision grossly intact, hearing grossly intact, normal speech, normal gait, no tremors Psychiatric: Normal affect, normal thought process, cooperative Results - Labs Labs: Diagram of Most Recent CBC and CMP 10/03/22 11:38 Assessment and Plan (1) Iron deficiency anemia due to chronic blood loss Iron deficiency anemia d/t chronic blood loss from heavy menses She has irregular periods that can occur 1-2 times per month, and last 7-10 dayseach time. She follows with gynecology for endometriosis and is considering an IUD to help control her bleeding She has been on oral iron supplementation for a few months without improvement in symptoms. We will repeat iron studies at consult Sep 2022 and if she remains low, will plan to replete with IV Venofer IV iron given September repeat labs with improved counts, but not yet normal. She remains symptomatic as well, so will replete with additional IV iron March 2023 labs with normal iron saturation and elevated ferritin. Asymptomatic. Additional labs checked for MRI abnormality and essentially negative. Peripheralsmear and MRI images reviewed with Dr. Cobos, who confirms this does not need further work-up at this time - Time with Patient Coordination of Care & Counseling Time: Greater than 50% of time spent with patient was for coordination of care (as documented) and [id number] counseling of patient and/or family. Dictated By: Kelly Hough APRN DD/ 1535 Signed By: <Electronically signed by BETTY Hough> 04/03/23 0916 [facility] Work Phone: 1(762) 340-420504-19-2023 Progress note Author Kelly Hough [facility] January 03, 2023 2:03pm Note Date/Time January 02, 2023 10: 47am [facility] [place] [address] Hem/Onc Follow Up Note - OP Signed Patient: Leandra Fonseca MR#: [id number] : 1990 Acct:[id number] Age/Sex: 32 / F Type: REG RCR Copies to: Yudelka Lopez APRN, COFFEE SOMMELIER-C~ Subjective Date/Time of Service: Date of Service: 01/02/2023 Time of Service: 10:46 Chief Complaint: Patient is here today for a a 3 month follow up visit for iron deficiency anemia and go over labs HPI: Leandra is a 32 year old female with a history of costochondritis, anemia, lymphedema, atypical chest pain, nausea, asthma, endometriosis and cervical adenopathy. Surgical history includes . She has no personal history of cancer. Family history of cancer includes her paternal grandfather, she is unclear which type of cancer he had. Medications include albuterol sulfate, amitriptyline, ferrous sulfate, fluticasone propionate, and ondansetron. She is referred by Yudelka Lopez NP for her iron deficiency anemia. Most recent cbc with hgb 9.9 and low MCV, MCH. Wbc count and platelets WNL. Chemistries reveal normal creatinine, calcium, protein, albumin, LFTs. Iron studies have notbeen repeated since January 2022, will repeat these. In review of her menstrual history, she notes her first cycle was at age 14. They are irregular and can occur 1-2 times per month, lasting 7-10 days each time. Of those days, about 3 of them are heavy. She goes thru on average 3 pads/day. She has known endometriosis and is following with gynecology to try an IUD for better control of her bleeding. On exam she is having fatigue, shortness of breath, ice cravings and dizziness. She also notes some nausea with her iron supplement as well as chronic constipation. She denies vomiting, constipation, chest pain, new bone pain, fevers, chills, sweats, weight loss. Recently she has noted some tingling in herneck and left arm as well as the left side of her face. She denies any drooping,slurred speech, vision changes, weakness or other related complaints. We discussed following up with Yudelka regarding these symptoms and going to the ER with worsening symptoms. She notes feeling better since she received her initial iron infusions, but energy is still not great She continues with some dyspnea and mild ice cravings denies new complaints. Her periods are [employer] now on control. Her heavy days she will only go thru maybe 2 pads/day. labs with hgb 11, iron sat 46.5% and ferritin 58.3 [facility] - Medical History Medical History: Medical History (Last Reviewed 11/28/22 @ 20:41 by Elizabeth Jones RN) Anemia Asthma Endometriosis Hypertension affecting Pre-eclampsia - Surgical History Surgical History: Surgical History (Last Reviewed 11/28/22 @ 20:41 by Elizabeth Jones RN) History of section - Family History Family History: Family History (Last Updated 10/03/22 @ 10:41 by Mya Mckeon) Father Heart attack Mother HTN (hypertension) Mother Diabetes Grandparent Cancer bone - Social History Smoking Status: Never smoker Substance Use Type: None Substance Abuse Comment: occ. alcohol Home Medications & Allergies Allergies labetalol Allergy (Verified 01/02/23 10:30) Difficulty Breathing THYROID MEDICATION Allergy (Uncoded 01/02/23 10:30) Rash Home Medications ferrous sulfate 325 mg (65 mg iron) tablet (FeroSul) 325 mg PO DAILY 06/01/22 [History Confirmed 01/02/23] albuterol sulfate 90 mcg/actuation aerosol inhaler 2 puff inhalation Q4-6H PRN Shortness Of Breath 10/02/22 [History Confirmed 01/02/23] fluticasone propionate 50 mcg/actuation blister powder for inhalation 2 inh inhalation BID 10/02/22 [History Confirmed 01/02/23] Objective - Height/Weight Height/Weight: Height 5 ft 2 in Weight 75.206 kg - Vital Signs Vital Signs: 01/02/23 10:31 Temperature 97.0 F L Pulse Rate [Right Brachial] 75 Respiratory Rate 16 Blood Pressure [Right Arm] 126/79 02 Sat by Pulse Oximetry 100 Oxygen Delivery Method Room Air Physical Exam Narrative: Constitutional: No acute distress, well-nourished, alert/oriented x3, cooperative HEENT: Head: Normocephalic Eyes: EOMI, PERRL, clear conjunctiva ENT: Moist mucous membrane, oropharynx clear, nares patent Neck: Supple, full range of motion, no lymphadenopathy, no tenderness Respiratory: No accessory muscle use, anterior and posterior chest clear, no rales, no respiratory distress no rhonchi, no wheeze, room air Cardiovascular: S1-S2 no murmur, no rubs, no gallop, no peripheral edema Gastrointestinal: Normal active bowel sounds, mild abdominal tenderness, no distention, no mass, no organomegaly noted Skin: Intact, dry, warm, normal turgor Neurologic: Alert, oriented x3, cranial nerves II-XII intact, reflexes, moving all extremities, vision grossly intact, hearing grossly intact, normal speech, normal gait, no tremors Psychiatric: Normal affect, normal thought process, cooperative Results - Labs Labs: Diagram of Most Recent CBC and CMP 10/03/22 11:38 Assessment and Plan (1) Iron deficiency anemia due to chronic blood loss Iron deficiency anemia d/t chronic blood loss from heavy menses She has irregular periods that can occur 1-2 times per month, and last 7-10 dayseach time. She follows with gynecology for endometriosis and is considering an IUD to help control her bleeding She has been on oral iron supplementation for a few months without improvement in symptoms. We will repeat iron studies at consult Sep 2022 and if she remains low, will plan to replete with IV Venofer IV iron given September repeat labs with improved counts, but not yet normal. She remains symptomatic as well, so will replete with additional IV iron - Time with Patient Coordination of Care & Counseling Time: Greater than 50% of time spent with patient was for coordination of care (as documented) and [id number] counseling of patient and/or family. Dictated By: Kelly Hough APRN DD/ 1046 Signed By: <Electronically signed by BETTY Hough> 01/03/23 1403 [facility] Work Phone: 1(243) 481-509104-07-2023 Evaluation note* Encounter Date Diagnosis Assessment Notes Treatment Notes Treatment Clinical Notes Dec, Abdominal pain (ICD-10 - R10.9) Dec, Bloating (ICD-10 - R14.0) Dec, Nausea (ICD-10 - R11.0) [employer] Other 04-06-2023 Evaluation note* Encounter Date Diagnosis Assessment Notes Treatment Notes Treatment Clinical Notes Dec, Abdominal pain (ICD-10 - R10.9) Dec, Nausea (ICD-10 - R11.0) Dec, History of IBS (ICD-10 - Z87.19) Patient to start Low-Fod Map diet. Handout given to patient. Dec, Constipation (ICD-10 - K59.00) Patient having around 2 bowel movements a week. Patient to use Miralax for constipation, titrate the dosage. Dec, Bloating (ICD-10 - R14.0) Dec, Blood in stool (ICD-10 - K92.1) Dec, Other Obtain records from [facility] in 2019 for EGD/Colonoscopy [employer] Other 01-17-2023 Consult note Author Kelly Hough [facility] October 03, 2022 1:04pm Note Date/Time October 03, 2022 1 1:23[facility] [place] [address] Hem/Onc Consult Note - OP Signed with Gena Patient: Leandra Fonseca MR#: [id number] : 1990 Acct:[id number] Age/Sex: 32 / F Type: REG RCR Copies to: Yudelka Lopez APRN, NP-C~ ADDENDUM1 Patient had labs after her visit that show persistent iron deficiency with ferritin low at 7.7 and hgb 9.7. Iron saturation ok, will still plan to replete with IV Venofer and follow-up as scheduled. Addendum Dictated By: BETTY Kelly Galvez Shelbymagnoliacristel Addendum Signed By: 10/03/221303 Addendum Cosigned By: DD/ TD/TT: 10/03/22 HPI Date/Time of Service: Date of Service: 10/03/2022 Time of Service: 11:23 Referring Provider/PCP: Referring Provider: Yudelka Lopez APRN, NP-C PCP: Yudelka Lopez APRN, NP-C - History of Present Illness Reason for Consultation: iron deficiency anemia Chief Complaint: Patient is here today for a referral for iron deficiency anemia HPI: Leandra is a 32 year old female with a history of costochondritis, anemia, lymphedema, atypical chest pain, nausea, asthma, endometriosis and cervical adenopathy. Surgical history includes . She has no personal history of cancer. Family history of cancer includes her paternal grandfather, she is unclear which type of cancer he had. Medications include albuterol sulfate, amitriptyline, ferrous sulfate, fluticasone propionate, and ondansetron. She is referred by Yudelka Lopez NP for her iron deficiency anemia. Most recent cbc with hgb 9.9 and low MCV, MCH. Wbc count and platelets WNL. Chemistries reveal normal creatinine, calcium, protein, albumin, LFTs. Iron studies have notbeen repeated since January 2022, will repeat these. In review of her menstrual history, she notes her first cycle was at age 14. They are irregular and can occur 1-2 times per month, lasting 7-10 days each time. Of those days, about 3 of them are heavy. She goes thru on average 3 pads/day. She has known endometriosis and is following with gynecology to try an IUD for better control of her bleeding. On exam she is having fatigue, shortness of breath, ice cravings and dizziness. She also notes some nausea with her iron supplement as well as chronic constipation. She denies vomiting, constipation, chest pain, new bone pain, fevers, chills, sweats, weight loss. Recently she has noted some tingling in herneck and left arm as well as the left side of her face. She denies any drooping,slurred speech, vision changes, weakness or other related complaints. We discussed following up with Yudelka regarding these symptoms and going to the ER with worsening symptoms. [facility] - Medical History Medical History: Medical History (Last Updated 10/03/22 @ 10:48 by Mya Mckeon) Anemia Asthma Endometriosis Hypertension affecting Pre-eclampsia - Surgical History Surgical History: Surgical History (Last Reviewed 10/03/22 @ 10:42 by Mya Mckeon) History of section - Family History Family History: Family History (Last Updated 10/03/22 @ 10:41 by Mya Mckeon) Father Heart attack Mother HTN (hypertension) Mother Diabetes Grandparent Cancer bone - Social History Smoking Status: Never smoker Substance Use Type: Alcohol Substance Abuse Comment: occ. alcohol Home Medications & Allergies Allergies labetalol Allergy (Verified 10/03/22 10:39) Difficulty Breathing Home Medications ferrous sulfate 325 mg (65 mg iron) tablet (FeroSul) 325 mg PO DAILY 06/01/22 [History Confirmed 10/03/22] albuterol sulfate 90 mcg/actuation aerosol inhaler 2 puff inhalation Q4-6H PRN Shortness Of Breath 10/02/22 [History Confirmed 10/03/22] amitriptyline 25 mg tablet 25 mg PO QHS 10/02/22 [History Confirmed 10/03/22] fluticasone propionate 50 mcg/actuation blister powder for inhalation 2 inh inhalation BID 10/02/22 [History Confirmed 10/03/22] ondansetron HCl 4 mg tablet 4 mg PO DAILY 10/02/22 [History Confirmed 10/03/22] Objective - Height/Weight Height/Weight: Height 5 ft 2 in Weight 72.41 kg - Vital Signs Vital Signs: 10/03/22 10:46 Temperature 97.8 F Pulse Rate [Left Brachial] 73 Respiratory Rate 16 Blood Pressure [Left Arm] 113/67 02 Sat by Pulse Oximetry 99 Oxygen Delivery Method Room Air Physical Exam Narrative: Constitutional: No acute distress, well-nourished, alert/oriented x3, cooperative HEENT: Head: Normocephalic Eyes: EOMI, PERRL, clear conjunctiva ENT: Moist mucous membrane, oropharynx clear, nares patent Neck: Supple, full range of motion, no lymphadenopathy, no tenderness Respiratory: No accessory muscle use, anterior and posterior chest clear, no rales, no respiratory distress no rhonchi, no wheeze, room air Cardiovascular: S1-S2 no murmur, no rubs, no gallop, no peripheral edema Gastrointestinal: Normal active bowel sounds, mild abdominal tenderness, no distention, no mass, no organomegaly noted Skin: Intact, dry, warm, normal turgor Neurologic: Alert, oriented x3, cranial nerves II-XII intact, reflexes, moving all extremities, vision grossly intact, hearing grossly intact, normal speech, normal gait, no tremors Psychiatric: Normal affect, normal thought process, cooperative Assessment and Plan (1) Iron deficiency anemia due to chronic blood loss Iron deficiency anemia d/t chronic blood loss from heavy menses She has irregular periods that can occur 1-2 times per month, and last 7-10 dayseach time. She follows with gynecology for endometriosis and is considering an IUD to help control her bleeding She has been on oral iron supplementation for a few months without improvement in symptoms. We will repeat iron studies at consult Sep 2022 and if she remains low, will plan to replete with IV Venofer If her counts return normal, we will follow-up with additional anemia labs for further evaluation. - Time with Patient Coordination of Care & Counseling Time: Greater than 50% of time spent with patient was for coordination of care (as documented) and [id number] counseling of patient and/or family. Dictated By: Kelly Hough APRN DD/ 1123 Signed By: <Electronically signed by BETTY Hough> 10/03/22 1259 [facility] Work Phone: 1(944) 787-303107-18-2022 NotePROCEDURE DETAILS Preoperative Diagnosis: Left abdominal wall endometrioma Postoperative Diagnosis: Same Surgeon: Sly Crocker Resident/Fellow/Other Deputy General Counsel: Ariel Thompson Procedure: 1. LEFT ABDOMINAL WALL TUMOR RESECTION 8X5.5X4CM 2. MESH RECONSTRUCTION ANTERIOR RECTUS FASCIA 7X5CM DEFECT (Bard Soft Mesh) 3. COMPLEX CLOSURE OF A 8CM WOUND Anesthesia: Alan Pardo Estimated Blood Loss: 10ml Findings: 8X5.5X4CM SOFT TISSUE MASS WITH EN BLOC FASCIA AND OVERLYING SKIN PADDLE Specimens(s) Collected: yes, Left anterior wall soft tissue mass -short ycychnnh31:00, long lateral 300 Complications: None Drains and/or Catheters: 10Fr round drain - Patient Returned To/Condition: PACU Operative Report: Indications: Ms. Fonseca is a 31 year old female with a left anterior lower abdominal wall mass along the prior pfannensteil incision. The mass was cyclically painful causing significant discomfort. Biopsy suggested endometrioma. Due to the size of the mass and the symptoms, resection was offered. Other options including hormonal therapies or ablations were discussed. Risks, benefits, and alternatives reviewed in detail. The patient understands that resection of the mass would likely require drain placement and possible mesh reconstruction of the rectus fascia. Informed consent was obtained. Description of the procedure: The patient was brought to the operating room and placed supine on the table. Sequential compression devices were applied. General anesthesia was smoothly induced. The operative sites were prepped and draped in the usual fashion. Timeout was performed and preoperative antibiotics given. A skin ellipse was marked to resect the prior left sided surgical pfannensteil scar. Lidocaine was injected for anesthesia. The skin was incised sharply and dissection entered the subcutaneous tissues. Flaps were raised superiorly and inferiorly to ensure resection of the mass without gross violation. At the level of the rectus fascia the mass was intimately adhered to the fascia. As such, a 7x5cm defect was created in the fascia allowing extirpation of the mass off the underlying muscle. The mass was then marked and sent off the field. The defect was copiously irrigated and hemostasis was obtained. At this point, the midline rectus muscles were reapproximated at the midline below the fascial defect using a 2-0 PDS suture to minimize the defect. The Bard Soft Mesh was then cut to size and sutured to the edges of the fascial defect using 2-0 prolene in running fashion as an interposition mesh. The mesh was secured without tension or wrinkles. A 10 Fr ESTEBAN drain was then placed over this mesh. The subcutaneous flaps were then raised superiorly and inferiorly to allow for closure of the potential space using a running 2-0 PDS suture. Additional scarpas closure was performed with 3-0 vicyl sutures. This was also used for the deep dermal layer and then 4-0 monocryl for the skin. Skin glue was applied as a dressing. The patient tolerated the procedure well without any apparent intraoperative complications. All sponge, needle, and instrument counts were correct. As the attending surgeon I was scrubbed for all saravia portions of the procedure. Note Recipients: Yudelka Lopez APRN-CATALINA BOSWELLZIOMALCOLM R - [id number] [] Attestation: Note Completion: Attending AttestationI was present for the entire procedure Electronic Signatures: Sly Crocker) (Signed 03-Apr-2022 17:55) Authored: Post-Operative Note, Chart Review, Note Completion Last Updated: 03-Apr-2022 17:55 by Sly Crocker)[facility]07-18-2022 NoteHistory & Physical Reviewed: /Lactating: Are You no Are You Currently Breastfeedingno I have reviewed the History and Physical dated: 24-Mar-2022 History and Physical reviewed and relevant findings noted. Patient examined to review pertinent physical findings.: No significant changes Home Medications Reviewed: no changes noted Allergies Reviewed: no changes noted ERAS (Enhanced Recovery After Surgery): ERAS Patient: no Consent: COVID-19 Consent: COVID-19 Risk ConsentSurgeon has reviewed saravia risks related to the risk of kriss COVID-19 and if they contract COVID-19 what the risks are. Attestation: Note Completion: I am a: Resident/Fellow Attending AttestationI saw and evaluated the patient. I personally obtained the saravia and critical portions of the history and physical exam or was physically present for saravia and critical portions performed by the resident/fellow. I reviewed the resident/fellows documentation and discussed the patient with the resident/fellow. I agree with the resident/fellows medical decision making as documented in the note. I personally evaluated the patient [id number] Electronic Signatures: Miguel Crawford (Resident)) (Signed 03-Apr-2022 12:08) Authored: History & Physical Reviewed, ERAS, Consent, Note Completion Sly Crocker) (Signed 03-Apr-2022 14:42) Authored: Note Completion Co-Signer: History & Physical Reviewed, ERAS, Consent, Note Completion Last Updated: 03-Apr-2022 14:42 by Sly Crocker)[facility] No data available for this section [facility] [place] Evaluation noteNo assessment information available [facility] Work Phone: Evaluation note* Diagnosis Onset Date Resolution Status Iron deficiency anemia due to chronic blood loss acute [facility] Work Phone: History general Narrative - Reported* Type Description Date Medical History concussion Medical History IBS-C Surgical History C SECTION Hospitalization History see above [employer] Other History of Present illness Narrative* Ms. Fonseca is a 31-year-old female presenting with a painful and growing left lower abdominal wallmass. She was referred by Dr. Malcolm Pendleton for evaluation and management of this tumor. The patient reports that the mass has been noted for some time however it seems to have grown in size. It is nowsignificantly painful and seems to become more painful during menstruation. She also feels like shehas a decreased energy level. She takes ibuprofen for the pain but only gets some relief with this.She reports abdominal discomfort since 2017. Her last was about 2 years ago at which timeshe had her second . She also reports dyspareunia. She does report that she may consider having more kids although due to the difficulty of her prior pregnancies this has not been determined. * She has had imaging including a CT scan and ultrasounds that have demonstrated a 3.5 x 1.7 x 3.3 cmsoft tissue density in the left paracentral ventral abdominal fat abutting the underlying fascia and abdominal rectus muscle. Notably the patient also has a 2 cm umbilical hernia. Biopsy of this mass demonstrating findings consistent with an endometrioma. * Surgery 04/03/2022 - Radical resection left abdominal wall mass and associated rectus fascia * Pathology - PENDING * 04/07/2022 - POV - Drain output is <10ml/day for 3 days. Presenting for removal. The patient had a ace few days after surgery where an she remained nauseous postoperatively and required prescription of Zofran which she continues to take occasionally. She also had shortness of breath and this was concerning enough to have her evaluated in the emergency department near home where an a pulmonaryembolism was ruled out. She is doing better overall. She still reports significant pain in this area. She is doing well to not exert excessively * ROS: * The patient has very good performance status and is active daily. * Cardiac: No chest pain, palpitations or heart attacks * Pulmonary: No asthma, bronchitis, or COPD * HEENT: No sinus or dental issues. * GI: Abdominal discomfort seems to be cyclical. Pain after surgery * : Dysmenorrhea. Dyspareunia. no urinary complaints * Musculoskeletal: No limitations to ROM or strength * Skin: No prior skin lesions or concerns * Heme: No bleeding or thrombosis issues * Lymph: No swollen lymph glands * Psych: No reported anxiety or depression * All other systems reviewed and negative * Physical exam: * General: No acute distress. Healthy appearing * HEENT: Moist oral mucosa, normocephalic * CV: RRR, Vitals reviewed * Pulmonary: No respiratory distress. No use of accessory muscles. No audible wheeze * GI: Soft, non-distended. Incision intact. Drain output minimal. Serosanguinous. No additional ouptut upon stripping the drain. Tender * Skin: Incision intact * Neuro: No gross sensorimotor deficits * Extremities: No leg swelling [facility] Work Phone: History of Present illness Narrative* Ms. Fonseca is a 31-year-old female presenting with a painful and growing left lower abdominal wallmass. She was referred by Dr. Malcolm Pendleton for evaluation and management of this tumor. The patient reports that the mass has been noted for some time however it seems to have grown in size. It is nowsignificantly painful and seems to become more painful during menstruation. She also feels like shehas a decreased energy level. She takes ibuprofen for the pain but only gets some relief with this.She reports abdominal discomfort since 2017. Her last was about 2 years ago at which timeshe had her second . She also reports dyspareunia. She does report that she may consider having more kids although due to the difficulty of her prior pregnancies this has not been determined. * She has had imaging including a CT scan and ultrasounds that have demonstrated a 3.5 x 1.7 x 3.3 cmsoft tissue density in the left paracentral ventral abdominal fat abutting the underlying fascia and abdominal rectus muscle. Notably the patient also has a 2 cm umbilical hernia. Biopsy of this mass demonstrating findings consistent with an endometrioma. * Surgery 04/03/2022 - Radical resection left abdominal wall mass and associated rectus fascia * Pathology -endometrioma * 04/21/2022 virtual postoperative visit. The patient reports that she is doing better however she has presented to the emergency room twice since her last visit with me. I was unaware of these presentations. She has received Imaging at both events. Review of her imaging occurred after the appointment once the images were made available. This did not show any evidence of hernia or fluid collection inthe surgical site. Patient does have some indurated tissues in the site of scar formation. Nonetheless there was no clear evidence for acute intra-abdominal concern either. * ROS: * The patient has good performance status and is active daily. * Cardiac: No chest pain, palpitations or heart attacks * Pulmonary: No asthma, bronchitis, or COPD * HEENT: No sinus or dental issues. * GI: Abdominal discomfort seems to be cyclical. Pain after surgery * : Dysmenorrhea. Dyspareunia. no urinary complaints * Musculoskeletal: No limitations to ROM or strength * Skin: No prior skin lesions or concerns * Heme: No bleeding or thrombosis issues * Lymph: No swollen lymph glands * Psych: No reported anxiety or depression * All other systems reviewed and negative * Physical exam: * Unable to perform a physical exam due to the telephone nature of this visit. [facility] Work Phone: Hospital Discharge instructions Additional Instructions If your symptoms return/worsen or you develop any further concerns or symptoms please see your doctor or return to the emergency department immediately.[facility] Work Phone: Hospital Discharge instructions Additional Instructions Follow-up with your primary care doctor Return to ED if you develop worsening symptoms [facility] Work Phone: Hospital Discharge instructions Additional Instructions Return for worsening symptoms [facility] Work Phone: Hospital Discharge instructions No data available for this section [facility] [place] Progress note No data available for this section [facility] [place] Summary Purpose Family History No Family History Records Found Relationship Condition Age at Onset Recorded Date/T charis father Myocardial infarction Unknown Not Specified Hypertension Unknown Not Specified Diabetes mellitus Unknown grandparent Malignant neoplasm Unknown Advance Directives No Advanced Directives Records Found Advance Directive Response Recorded Date/ Time Advance Directives No October 1:17pm Advance Directive Response Recorded Date/ Time Advance Directives No October 12:17pm Chief Complaint Endometrioma of prior scarEndometrioma of prior scar Chief Complaint and Reason for Visit Chief Complaint left side numb, abdo lucie pain chest and abdominal pain r22.2 SOB,Surgery yesterday,site not draining E87.6 Chief Complaint left side numb, abdo lucie pain chest and abdominal pain r22.2 SOB,Surgery yesterday,site not draining E87.6 blood in stool Chief Complaint E87.6 blood in stool Abd Pain/Chills Chief Complaint Abd Pain/Chills R06.02 Chief Complaint Abd Pain/Chills R06.02 SOB, Palpitations Chief Complaint R06.02 SOB, Palpitations E05.90 Chief Complaint R06.02 SOB, Palpitations E05.90 Iron Deficiency Anemia E04.1 R94.6 E55.9 Reason for Visit Iron deficiency anem ia due to chronic blood loss Chief Complaint R06.02 SOB, Palpitations E05.90 E04.1 R94.6 E55.9 Iron Deficiency Anemia left foot injury Reason for Visit Iron deficiency anem ia due to chronic blood loss Chief Complaint E05.90 E04.1 R94.6 E55.9 Iron Deficiency Anemia left foot injury V neck pain labs Reason for Visit Iron deficiency anem ia due to chronic blood loss Chief Complaint left foot injury labs V neck pain Iron Deficiency Anemia Reason for Visit Iron deficiency anem ia due to chronic blood loss Chief Complaint left foot injury labs V neck pain Iron Deficiency Anemia R10.9 R14.0 Reason for Visit Iron deficiency anem ia due to chronic blood loss Chief Complaint labs V neck pain R10.9 R14.0 vaginal bleeding Iron Deficiency Anemia M54.2 Reason for Visit Iron deficiency anem ia due to chronic blood loss Chief Complaint labs V neck pain R10.9 R14.0 vaginal bleeding M54.2 Iron Deficiency Anemia Reason for Visit Iron deficiency anem ia due to chronic blood loss Chief Complaint r94.6 e04.1 Iron Deficiency Anemia Reason for Visit Iron deficiency anem ia due to chronic blood loss Chief Complaint r94.6 e04.1 . Iron Deficiency Anemia Reason for Visit Iron deficiency anem ia due to chronic blood loss Chief Complaint Iron Deficiency Anem ia Screening for STD (sexually transmitted disease) Reason for Visit Iron deficiency anem ia due to chronic blood loss Chief Complaint Screening for STD (s exually transmitted disease) Iron Deficiency Anemia Reason for Visit Iron deficiency anem ia due to chronic blood loss Additional Source Comments INFORMATION SOURCE (unrecogn ized section and content) DATE CREATED AUTHOR 04/07/2022 [facility] DATE CREATED AUTHOR AUTHOR'S ORGANIZ ATION 04/23/2022 [employer] DATE CREATED AUTHOR AUTHOR'S ORGANIZ ATION 04/28/2022 [facility] DATE CREATED AUTHOR AUTHOR'S ORGANIZ ATION 05/16/2022 [facility] DATE CREATED AUTHOR AUTHOR'S ORGANIZ ATION 12/21/2022 [facility] DATE CREATED AUTHOR AUTHOR'S ORGANIZ ATION 11/25/2023 [facility] DATE CREATED AUTHOR AUTHOR'S ORGANIZ ATION 12/11/2023 [facility] DATE CREATED AUTHOR AUTHOR'S ORGANIZ ATION 02/20/2024 [facility] EPIC Care Teams (unrecognized sec tion and content) Team Status: Active Member Role Status Dates Yudelka Lopez APRN COFFEE SOMMELIER-C Primary Care Provider Act klever Team Status: Active Member Role Status Dates Yudelka Lopez APRN [employer] SOMM[employer]-C Primary Care Provider, Re edita Provider Active Ariana Demboske , CLERICAL ADJUSTER Attending Provider Acti ve Team Status: Inactive Member Role Status Dates Yudelka Lopez , CLERICAL ADJUSTER [employer] SOMMELIER-C Primary Care Provider Act kleverkavita Horton MD Attending Provider Active Team Status: Inactive Member Role Status Dates Yudelka Lopez , CLERICAL ADJUSTER [employer]OMM[employer]IER-C Primary Care Provider Act klever Allegra Vega , PA-C Emergency Provider Active Team Status: Active Member Role Status Dates Yudelka Lopez , CLERICAL ADJUSTER [employer] SOMM[employer]-C Primary Care Provider, At tending Provider Active Team Status: Inactive Member Role Status Dates Yudelka Lopez , CLERICAL ADJUSTER [employer]-C Primary Care Provider Act klever Jose Shanks MD Attending Provider Active Dayne Horton MD Referring Provider Active Team Status: Inactive Member Role Status Dates Yudelka Lopez , CLERICAL ADJUSTER [employer] SOMM[employer]-C Primary Care Provider, At tending Provider Active Team Status: Inactive Member Role Status Dates Yudelka Lopez , CLERICAL ADJUSTER [employer]OM[employer]-C Primary Care Provider Act klever Frank Silva , DO Emergency Provider Active Team Status: Inactive Member Role Status Dates Yudelka Lopez , CLERICAL ADJUSTER [employer]OMM[employer]-C Primary Care Provider Act klever Sly Crocker MD Attending Provider Active Team Status: Inactive Member Role Status Dates Yudelka Lopez , CLERICAL ADJUSTER [employer]OMM[employer]-C Primary Care Provider Act klever Jim Vega , DO Emergency Provider Active Team Status: Inactive Member Role Status Dates Yudelka Lopez , CLERICAL ADJUSTER [employer] SOMMELIER-C Primary Care Provider Act klever Chris Greenwood , DO Emergency Provider Active Team Status: Inactive Member Role Status Dates Yudelka Lopez , CLERICAL ADJUSTER [employer]EE SOMMELIER-C Primary Care Provider Act kleverkavita Serrano Jr, MD Emergency Provider Active Team Status: Inactive Member Role Status Dates Yudelka Lopez , CLERICAL ADJUSTER [employer]OMM[employer]-C Primary Care Provider Act klever Frank Silva , DO Emergency Provider Active Vicky Fuentes DO RES Active Team Status: Inactive Member Role Status Dates Yudelka Lopez , CLERICAL ADJUSTER [employer] SOMM[employer]-C Primary Care Provider Act klever Tejinder Peraza [employer]EE SOMMELIER-C Attending Provider Active Team Status: Inactive Member Role Status Dates Jim Vega , DO Emergency Provider Active Yudelka Lopez , CLERICAL ADJUSTER [employer] SOMMELIER-C Primary Care Provider Act klever Team Status: Inactive Member Role Status Dates Yudelka Lopez , CLERICAL ADJUSTER [employer] SOMMELIER-C Primary Care Provider Act kleverkavita Shanks MD Attending Provider Active Team Status: Inactive Member Role Status Dates Yudelka Lopez , CLERICAL ADJUSTER [employer] SOMMELIER-C Attending Provider Active Goals (unrecognized section and content) Goals may be documented in a n alternate sectionGoals may be documented in an alternate sectionGoals may be documented in an alternate sectionGoals may be documented in an alternate sectionGoals may be documented in an alternate sectionGoals may be documented in an alternate sectionGoals may be documented in an alternate sectionGoals may be documented in an alternate sectionNo InformationNo InformationGoals may be documented in an alternate section No data available for this sectionNo Information No data available for this section REASON FOR VISIT (unrecogniz ed section and content) PT IS HERE AT THE REQUEST OF DR. LOPEZ/HX OF IBS/FM HX OF CROHN'S/SEEN IN [place] ER-RECORDS REQUESTEDGastric emptying studyRASH ON BACK FOR RECORDS PERTAINING TO PATIENTS WHO ARE OR HAVE BEEN ENROLLED IN A CHEMICAL DEPENDENCY/SUBSTANCEABUSE PROGRAM, SOME INFORMATION MAY BE OMITTED. This clinical summary was aggregated from multiple sources. Caution should be exercised in using it in the provision of clinical care. This summary normalizes information from multiple sources, and as a consequence, information in this document may materially change the coding, format and clinical context of patient data. In addition, data may be omitted in some cases. CLINICAL DECISIONS SHOULD BE BASED ON THE PRIMARY CLINICAL RECORDS. [employer] provides no warranty or guarantee of the accuracy or completeness of information in this document.
[2024-02-22 08:17] VITALS: BP 129/71; PULSE 70; TEMP 35.6; O2SAT 100; BMI 28.9
[2024-02-22] MEDS: LACTATED RINGER'S SOLUTION 1,000 ML 50 ML IV (08:25)
[2024-02-22 08:26] LABS: HCG Quantitative <1 mIU/mL
--- NOTE | 2024-02-22 09:49 | PM.ONB ---
Brief Operative Note Date of procedure: 02/22/24 Pre-op diagnosis general: retained iud Post-op diagnosis: same as pre-op Procedure: NAME OF PROCEDURE: [ removal of retained iud ] PROCEDURE: The patient was taken back to the Operating Room where she was prepped and draped in normal sterile fashion after being placed under general anesthesia without difficulty. She was also placed in the dorsal lithotomy position. A weighted speculum was placed in the patient?s vagina. The anterior lip of the cervix was identified and grasped with a single tooth tenaculum. The patient?s uterus was then sounded roughly to [? 8] cm. The patient was then gently dilated using Hegar dilators. the polyp forceps was used remove the iud without difficulty. The single tooth tenaculum was then removed from the patient's anterior lip of the cervix where excellent hemostasis was noted. All instruments were removed from the patient?s vagina. The patient tolerated the procedure well. Sponge, lap and needle counts were correct times two. The patient was taken to the Recovery Room in stable condition.Room in stable condition. Anesthesia: MELISAA Surgeon: Malcolm Pendleton Estimated blood loss (mL): 5 Pathology: other (retained iud) Condition: stable Disposition: PACU Urinary Catheter Management Urinary Catheter Management Straight: Cath placed during this visit: no
[2024-02-22 09:51] VITALS: BP 122/65; PULSE 74; O2SAT 99
[2024-02-22 10:06] VITALS: BP 121/64; PULSE 60; O2SAT 100
[2024-02-22] MEDS: KETOROLAC TROMETHAMINE 30 MG/ML VIAL IVP (10:37)
[2024-02-22 10:38] VITALS: BP 118/69; PULSE 62; O2SAT 100
--- NOTE | 2024-02-22 10:50 | PC.NURSE ---
Medicated with Toradol IV as ordered for cramping; peripad dry; denies urge to void
[2024-02-22 11:07] VITALS: BP 123/61; PULSE 57; O2SAT 100
--- NOTE | 2024-02-22 11:15 | PC.NURSE ---
Up to bathroom and voids clear yellow without difficulty
== END 2024-02-22 11:16 | disposition home or self-care (01) ==
PROVIDERS: Visit Provider Obstetrics & Gynecology
PROC: (CPT 940; principal; 2024-02-22 09:10)
DX: T83.39XA Other mechanical complication of intrauterine contraceptive device, initial encounter (principal)
CPT/HCPCS: 58301; 36415; 84702; 85025; J2704

== ENCOUNTER 2024-08-02 06:50 | Outpatient (OUT) | payer OTHER, SELFPAY ==
--- OUTSIDE RECORDS SUMMARY | 2024-08-02 06:56 | XMS_ITS | CCD ---
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 activity/Vol] 14 U/L Normal 13-39 [facility] Comment on above: Performed By: #### U HCG, ADDONUAPLUS #### [address] Automated basophil %Ordered By: Sarah Dodd on 07-14-2024 Basophils/100 WBC (Bld) 0.4 % Normal . [facility] Comment on above: Performed By: #### U HCG, ADDONUAPLUS #### [address] Automated basophil countOrde red By: Sarah Dodd on 07-14-2024 Basophils (Bld) [#/Vol] 0.0 10*3/uL Normal 0.0-0.2 [facility] Comment on above: Result Comment: PERF ORMED BY: [place] [address] PATHOLOGIST API DEVELOPER CLAU ZAVALA M.D. Performed By: #### U HCG, ADDONUAPLUS #### [address] Automated blood monocyte cou ntOrdered By: Sarah Dodd on 07-14-2024 Monocytes (Bld) [#/Vol] 0.5 10*3/uL Normal 0.0-0.8 [facility] Comment on above: Performed By: #### U HCG, ADDONUAPLUS #### [facility] [address] [place] [address] Automated eosinophil %Ordere d By: Sarah Dodd on 07-14-2024 Eosinophils/100 WBC (Bld) 0.6 % Normal . [facility] Comment on above: Performed By: #### U HCG, ADDONUAPLUS #### [address] Automated eosinophil countOr dered By: Sarah Dodd on 07-14-2024 Eosinophils (Bld) [#/Vol] 0.0 10*3/uL Normal 0.0-0.45 [facility] Comment on above: Performed By: #### U HCG, ADDONUAPLUS #### [address] Automated monocyte %Ordered By: Sarah Dodd on 07-14-2024 Monocytes/100 WBC (Bld) 12.3 % Normal . [facility] Comment on above: Performed By: #### U HCG, ADDONUAPLUS #### [address] Automated neutrophil %Ordere d By: Sarah Dodd on 07-14-2024 Neutrophils/100 WBC (Bld) 63.5 % Normal . [facility] Comment on above: Performed By: #### U HCG, ADDONUAPLUS #### [facility] [address] [place] [address] Bacteria [Presence] in Urine by AutomatedOrdered By: Sarah Dodd on 07-14-2024 Bacteria Auto Ql (U) Rare [HPF] None Seen [facility] Basic Metabolic Panelon 06-18 Creatinine Clr Calc Pharmacy 107.14 Normal [facility] Comment on above: Performed By: #### U HCG, ADDONUAPLUS #### [address] [place] [address] [place] GFR/1.73 sq M.predicted MDRD (S/P/Bld) [Vol rate/Area] mL/min/{1.73_m2} Normal [facility] Comment on above: Performed By: #### U HCG, ADDONUAPLUS #### [facility] [address] Bilirubin Test strip Ql (U)O rdered By: Sarah Dodd on 07-14-2024 Bilirubin Ql (U) Negative Negative [facility] Bilirubin.direct [Mass/volum e] in Serum or PlasmaOrdered By: Sarah Dodd on 07-14-2024 Bilirubin.direct [Mass/Vol] 0.10 mg/dL 0.03-0.18 [facility] Bilirubin.total [Mass/volume ] in Serum or PlasmaOrdered By: Sarah Dodd on 07-14-2024 Bilirubin [Mass/Vol] 0.4 mg/dL Normal 0.3-1.0 [facility] Comment on above: Performed By: #### U HCG, ADDONUAPLUS #### [facility] [address] [place] [address] COVID CepheidOrdered By: Macarena Dodd on 07-14-2024 SARS-CoV-2 (COVID-19) Ab IA Ql Negative Negative [facility] Comment on above: This is a duplicate Cepheid Xpert Xpress CoV-2/Flu/RSV Plus RNA by RT-PCR result to be used for statistical tracking purpose only. SARS-CoV-2 (COVID-19) RNA HIRAM+probe Ql (Unsp spec) [facility] COVID-19 / Flu A/B / RSV PCR on 07-14-2024 SARS-CoV-2 (COVID-19) RNA HIRAM+probe Ql (Unsp spec) COVID-19 Cepheid Result Negative for SARS-CoV-2 RNA by RT-PCR Flu A Cepheid Result Negative for Flu A RNA by RT-PCR Flu B Cepheid Result Negative for Flu B RNA by RT-PCR RSV Cepheid Result Negative for RSV RNA by RT-PCR COVID19 Blank Space Reference: Negative COVID19 Blank Space Cepheid Disclaimer The Cepheid Xpert Xpress CoV-2/Flu/RSV Plus has Cepheid Disclaimer not been FDA cleared or approved; this test has Cepheid Disclaimer been authorized by FDA under an EUA for use by Cepheid Disclaimer authorized laboratories; this test has been Cepheid Disclaimer authorized only for the simultaneous qualitative Cepheid Disclaimer detection and differentiation of nucleic acids from Cepheid Disclaimer SARS-CoV-2, influenza A, influenza B, and Cepheid Disclaimer respiratory syncytial virus (RSV), and not for any Cepheid Disclaimer other viruses or pathogens; and this test is only Cepheid Disclaimer authorized for the duration of the declaration that Cepheid Disclaimer circumstances exist justifying the authorization of Cepheid Disclaimer emergency use of in vitro diagnostic tests for Cepheid Disclaimer detection and/or diagnosis of COVID-19 under Cepheid Disclaimer Section 564(b)(1) of the Act, 21 U.S.C. 360bbb- Cepheid Disclaimer 3(b)(1), unless the authorization is terminated or Cepheid Disclaimer revoked sooner. PERFORMED BY: [place] [address] PATHOLOGIST API DEVELOPER CLAU ZAVALA M.D. Normal [facility] Comment on above: Performed By: #### C OVID19 FLU RSV, CEPHEID NEG ####[facility] [address] [place] [id number] [facility] CT abdomen pelvis w compa CT abdomen pelvis w [facility] [place] [address] [place] [address] CT Scan Report Signed Patient: Leandra Fonseca MR#: [id number] : 1990 Acct:[id number] Age/Sex: 34 / F ADM Date: 07/14/24 Loc: ER Room: Type: [facility] ER Attending Dr: Copies to: DO Lety Fuller DO, JOSE Ordering Provider: Lety Dougherty DO, RES Date of Service: 07/14/24 CT/CT abdomen pelvis w con: Abdominal pain CT ABDOMEN AND PELVIS WITH INTRAVENOUS CONTRAST: CLINICAL HISTORY: Right lower quadrant pain fever shortness of breath since Sunday COMPARISON: CT abdomen and pelvis 11/13/2023 TECHNIQUE: Spiral images were obtained through the abdomen and pelvis following the administration of intravenous contrast. This CT exam was performed using one or more following dose reduction techniques: Automated exposure control, adjustment of the mA and/or kV according to patient size, or use of iterative reconstruction technique. FINDINGS: Lung Bases: [No acute findings.] Organs:Subcentimeter low attenuating lesions are seen within the liver, too small for accurate characterization. Gallbladder portal vein spleen pancreas adrenal glands aorta and kidneys all appear unremarkable.[ GI: Stomach is grossly unremarkable. Small bowel appears nondilated. Visualized portions of the appendix appear normal. No acute colonic abnormality is seen.[ Pelvis:[Urinary bladder is grossly normal. Uterus is grossly unremarkable. No adnexal mass.] Peritoneum/Retroperitoneum: Small amount of free fluid seen within the pelvis. No free air or lymphadenopathy.[ Abd wall/Bones:Presumed scar endometrioma is seen along the right aspect of the lower anterior abdominal wall similar to the prior study. No fluid collection is seen. 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 No acute intra-abdominal process is seen. Impression dictated by: Leroy Mancera Jr., D.OJorge07/14/2024 2:43 PM Dictation Location: [place] [address] Transcribed By: [facility] 07/14/24 1443 Dictated By: Leroy Mancera Jr, DO 07/14/24 1438 Signed By: 07/14/24 1443 Normal [facility] Calcium [Mass/volume] in Ser um or PlasmaOrdered By: Sarah Dodd on 07-14-2024 Calcium [Mass/Vol] 8.9 mg/dL Normal 8.6-10.3 [facility] Comment on above: Performed By: #### U HCG, ADDONUAPLUS #### [address] Carbon dioxide, total [Moles /volume] in Serum or PlasmaOrdered By: Sarah Dodd on 07-14-2024 CO2 [Moles/Vol] 25.2 mmol/L Normal 21.0-31.0 [facility] Comment on above: Performed By: #### U HCG, ADDONUAPLUS #### [address] Cepheid COVID PCR Negativeon 07-14-2024 SARS-CoV-2 (COVID-19) RNA HIRAM+probe Ql (Unsp spec) Negative Normal Negative [facility] Comment on above: Result Comment: This is a duplicate Cepheid Xpert Xpress CoV-2/Flu/RSV Plus RNA by RT-PCR result to be used for statistical tracking purpose only. PERFORMED BY: [place] [address] PATHOLOGIST API DEVELOPER CLAU ZAVALA M.D. Performed By: #### C OVID19 FLU RSV, CEPHEID NEG ####[facility] [place] [address] [place] Chloride [Moles/volume] in S salas or PlasmaOrdered By: Sarah Dodd on 07-14-2024 Chloride [Moles/Vol] 105 mmol/L Normal 98-107 [facility] Comment on above: Performed By: #### U HCG, ADDONUAPLUS #### [place] [address] [place] Color of Urine by AutoOrdere d By: Sarah Dodd on 07-14-2024 Color (U) Yellow Normal Yellow [facility] Comment on above: Order Comment: Name Collection Type:: Clean-Voided Midstream Performed By: #### U HCG, ADDONUAPLUS #### [address] [address] [place] Complete Blood Count Auto Di ffon 07-14-2024 Mean Corpuscular HGB Conc 32.2 g/dL Normal 32.0-35.0 [facility] Comment on above: Performed By: #### U HCG, ADDONUAPLUS #### [facility] [address] [place] [address] Monocytes/100 WBC (Bld) 20.43 % High 0.00-20.00 [facility] Comment on above: Result Comment: For adults in ED, MDW > 20.0 may be associated with a higher risk of sepsis during the first 12 hrs of hospital admission Performed By: #### U HCG, ADDONUAPLUS #### [facility] [address] [place] [address] NRBC% 0.1 /100{WBC} Normal 0-0.5 [facility] Comment on above: Performed By: #### U HCG, ADDONUAPLUS #### [facility] [address] [place] [address] Creatinine [Mass/volume] in Serum or PlasmaOrdered By: Sarah Dodd on 07-14-2024 Creatinine [Mass/Vol] 0.71 mg/dL Normal 0.60-1.20 [facility] Comment on above: Performed By: #### U HCG, ADDONUAPLUS #### [facility] [address] [place] [address] [place] Dipstick and Microscopicon 1 Bacteria,Urine Rare Normal None Seen [facility] Comment on above: Order Comment: Name Collection Type:: Clean-Voided Midstream Performed By: #### U HCG, ADDONUAPLUS #### [facility] [address] [place] [address] [place] Bilirubin,Urine Negative Normal Negative [facility] Comment on above: Order Comment: Name Collection Type:: Clean-Voided Midstream Performed By: #### U HCG, ADDONUAPLUS #### [facility] [address] [place] [address] Glucose Ql (U) Normal Normal Normal [facility] Comment on above: Order Comment: Name Collection Type:: Clean-Voided Midstream Performed By: #### U HCG, ADDONUAPLUS #### [facility] [address] [place] [address] Hyaline Casts,Urine None Normal 0-8 [facility] Comment on above: Order Comment: Name Collection Type:: Clean-Voided Midstream Performed By: #### U HCG, ADDONUAPLUS #### [facility] [address] [place] [address] Mucus,Urine 2+ Critically abnormal [facility] Comment on above: Order Comment: Name Collection Type:: Clean-Voided Midstream Performed By: #### U HCG, ADDONUAPLUS #### [address] Nitrite,Urine Negative Normal Negative [facility] Comment on above: Order Comment: Name Collection Type:: Clean-Voided Midstream Performed By: #### U HCG, ADDONUAPLUS #### [address] Occult Blood,Urine 1+ High Negative [facility] Comment on above: Order Comment: Name Collection Type:: Clean-Voided Midstream Performed By: #### U HCG, ADDONUAPLUS #### [address] RBC,Urine 20-49 High 0-4 [facility] Comment on above: Order Comment: Name Collection Type:: Clean-Voided Midstream Performed By: #### U HCG, ADDONUAPLUS #### [facility] [address] [place] [address] Specificy [place],Urine 1.030 Normal 1.001-1.03 0 [facility] Comment on above: Order Comment: Name Collection Type:: Clean-Voided Midstream Performed By: #### U HCG, ADDONUAPLUS #### [address] Squamous Epithelial Cell,Urine 5-9 High 0-2 [facility] Comment on above: Order Comment: Name Collection Type:: Clean-Voided Midstream Performed By: #### U HCG, ADDONUAPLUS #### [facility] [address] Urobilinogen,Urine 3 mg/dL High Normal [facility] Comment on above: Order Comment: Name Collection Type:: Clean-Voided Midstream Performed By: #### U HCG, ADDONUAPLUS #### [facility] [address] WBC,Urine 5-9 High 0-4 [facility] Comment on above: Order Comment: Name Collection Type:: Clean-Voided Midstream Performed By: #### U HCG, ADDONUAPLUS #### [facility] [address] ECG 12 lead ECGon 07-14-2024 ECG 12 lead ECG [facility] [place] [address] [place] [address] Electrocardiograph Report Signed Patient: Leandra Fonseca MR#: [id number] : 1990 Acct:[id number] Age/Sex: 34 / F ADM Date: 07/14/24 Loc: ER Room: Type: [facility] ER Attending Dr: Ordering Provider: Sarah Dodd DO Date of Service: 07/14/24 ECG/ECG 12 lead ECG: Abdominal Pain Copies to: Test Reason : Blood Pressure : 124/63 mmHG Vent. Rate : 91 BPM Atrial Rate : 91 BPM P-R Int : 156 ms QRS Dur : 76 ms QT Int : 344 ms P-R-T Axes : 66 70 37 degrees QTcB Int : 423 ms Normal sinus rhythm Confirmed by Glenroy Weldon DO ([id number]) on 07/14/2024 8:07:49 PM Referred By: Electronically Signed By: Glenroy Weldon DO Transcribed By: MUS Signed By Glenroy Weldon DO 2006 Normal [facility] Epithelial cells.squamous [# /area] in Urine sediment by Automated countOrdered By: Sarah Dodd on 07-14-2024 Epithelial cells.squamous Auto (Urine sed) [#/Area] 5-9 [HPF] High 0-2 [facility] Erythrocyte distribution wid th [Ratio] by Automated countOrdered By: Sarah Dodd on 07-14-2024 Erythrocyte distribution width (RBC) [Ratio] 13.7 % Normal 11.9-15.3 [facility] Comment on above: Performed By: #### U HCG, ADDONUAPLUS #### [facility] [address] [place] [address] [place] Erythrocytes [#/area] in Uri ne sediment by Automated countOrdered By: Sarah Dodd on 07-14-2024 RBC Auto (Urine sed) [#/Area] 20-49 [HPF] High 0-4 [facility] Erythrocytes [#/volume] in B lood by Automated countOrdered By: Sarah Dodd on 07-14-2024 RBC (Bld) [#/Vol] 4.57 10*6/uL Normal 3.60-5.[address] [facility] Comment on above: Performed By: #### U HCG, ADDONUAPLUS #### [facility] [address] [place] [address] [place] Glucose [Mass/volume] in Ser um or PlasmaOrdered By: Sarah Dodd on 07-14-2024 Glucose [Mass/Vol] 88 mg/dL Normal 70-100 [facility] Comment on above: ADA recommended refe rence rangeRandom Glucose Reference Range is dependent on time and content of last meal. Glucose of more than 200 mg/dL in a nonstressed, ambulatory subject supports the diagnosis of Diabetes Mellitus. Result Comment: [place] om Glucose Reference Range is dependent on time and content of last meal. Glucose of more than 200 mg/dL in a nonstressed, ambulatory subject supports the diagnosis of Diabetes Mellitus. ADA recommended reference range Performed By: #### U HCG, ADDONUAPLUS #### [facility] [address] [place] [address] [place] Glucose [Mass/volume] in Uri ne by Test stripOrdered By: Sarah Dodd on 07-14-2024 Glucose Test strip (U) [Mass/Vol] Normal mg/dL Normal [facility] HCG ( test) IA.rapi d Ql (U)Ordered By: PROVIDER TEMP on 07-14-2024 HCG ( test) Ql (U) Negative [facility] HCG,Urineon 07-14-2024 Beta HCG ( test) Ql (U) Negative Normal [facility] Comment on above: Order Comment: Name Collection Type:: Clean-Voided Midstream Result Comment: PERF ORMED BY: [place] [address] PATHOLOGIST API DEVELOPER CLAU ZAVALA M.D. Performed By: #### U HCG, ADDONUAPLUS #### [address] Hematocrit [Volume Fraction] of Blood by Automated countOrdered By: Sarah Dodd on 07-14-2024 Hematocrit (Bld) [Volume fraction] 33.4 % Low 34.0-46.4 [facility] Comment on above: Performed By: #### U HCG, ADDONUAPLUS #### [address] Hemoglobin Test strip Ql (U) Ordered By: Sarah Dodd on 07-14-2024 Hemoglobin Ql (U) 1+ High Negative [facility] Hemoglobin [Mass/volume] in BloodOrdered By: Sarah Dodd on 07-14-2024 Hemoglobin (Bld) [Mass/Vol] 10.8 g/dL Low 11.8-15.4 [facility] Comment on above: Performed By: #### U HCG, ADDONUAPLUS #### [address] Hepatic Panelon 07-14-2024 Albumin [Mass/Vol] 4.1 g/dL Normal 3.5-5.7 [facility] Comment on above: Performed By: #### U HCG, ADDONUAPLUS #### [address] Bilirubin,Indirect 0.3 mg/dL Normal [facility] Comment on above: Performed By: #### U HCG, ADDONUAPLUS #### [address] Bilirubin.indirect [Mass/Vol] 0.10 mg/dL Normal 0.03-0.18 [facility] Comment on above: Performed By: #### U HCG, ADDONUAPLUS #### [facility] [address] [place] [address] [place] Hyaline casts [#/area] in Ur ine sediment by Automated countOrdered By: Sarah Dodd on 07-14-2024 Hyaline casts Auto (Urine sed) [#/Area] None [LPF] 0-8 [facility] Ketones [Presence] in Urine by Test stripOrdered By: Sarah Dodd on 07-14-2024 Ketones Ql (U) 2+ High Negative [facility] Comment on above: Order Comment: Name Collection Type:: Clean-Voided Midstream Performed By: #### U HCG, ADDONUAPLUS #### [facility] [address] [place] [address] [place] Leukocyte esterase [Presence ] in Urine by Test stripOrdered By: Sarah Dodd on 07-14-2024 Leukocyte esterase Test strip Ql (U) Negative Normal Negative [facility] Comment on above: Order Comment: Name Collection Type:: Clean-Voided Midstream Performed By: #### U HCG, ADDONUAPLUS #### [facility] [address] [place] [address] [place] Leukocytes [#/area] in Urine sediment by Automated countOrdered By: Sarah Dodd on 07-14-2024 WBC Auto (Urine sed) [#/Area] 5-9 [HPF] High 0-4 [facility] Leukocytes [#/volume] correc delmer for nucleated erythrocytes in Blood by Automated counOrdered By: Sarah Dodd on 07-14-2024 WBC corrected for nucl RBC Auto (Bld) [#/Vol] 4.3 10*3/uL 3.8-11.6 [facility] Leukocytes [#/volume] in Blo od by Automated countOrdered By: Sarah Dodd on 07-14-2024 WBC (Bld) [#/Vol] 4.3 10*3/uL Normal 3.8-11.6 [facility] Comment on above: Performed By: #### U HCG, ADDONUAPLUS #### [facility] [address] [place] [address] [place] Lipase [Enzymatic activity/v olume] in Serum or PlasmaOrdered By: Sarah Dodd on 07-14-2024 Lipase [Catalytic activity/Vol] 45.0 U/L Normal 11.0-82.0 [facility] Comment on above: Result Comment: PERF ORMED BY: [place] [address] PATHOLOGIST API DEVELOPER CLAU ZAVALA M.D. Performed By: #### U HCG, ADDONUAPLUS #### [facility] [address] [place] [address] Lymphocytes [#/volume] in Bl ood by Automated countOrdered By: Sarah Dodd on 07-14-2024 Lymphocytes (Bld) [#/Vol] 1.0 10*3/uL Normal 1.00-4.8 [facility] Comment on above: Performed By: #### U HCG, ADDONUAPLUS #### [facility] [address] [place] [address] Lymphocytes/100 leukocytes i n Blood by Automated countOrdered By: Sarah Dodd on 07-14-2024 Lymphocytes/100 WBC (Bld) 23.2 % Normal . [facility] Comment on above: Performed By: #### U HCG, ADDONUAPLUS #### [facility] [address] [place] [address] MCH [Entitic mass] by Automa delmer countOrdered By: Sarah Dodd on 07-14-2024 MCH (RBC) [Entitic mass] 23.5 pg Low 24.7-34.3 [facility] Comment on above: Performed By: #### U HCG, ADDONUAPLUS #### [facility] [address] [place] [address] MCHC Auto (RBC) [Mass/Vol]Or dered By: Sarah Dodd on 07-14-2024 MCHC (RBC) [Mass/Vol] 32.2 g/dL 32.0-35.0 [facility] MCV [Entitic volume] by Auto mated countOrdered By: Sarah Dodd on 07-14-2024 MCV (RBC) [Entitic vol] 73.1 fL Low 80-100 [facility] Comment on above: Performed By: #### U HCG, ADDONUAPLUS #### [facility] [address] [place] [address] Monocyte distribution width [Entitic volume] in Blood by AutomatedOrdered By: Sarah Dodd on 07-14-2024 Monocyte distribution width Auto (Bld) [Entitic vol] 20.43 % High 0.00-20.00 [facility] Comment on above: For adults in ED, MD W > 20.0 may be associated with a higher risk of sepsis during the first 12 hrs of hospital admission Mucus [Presence] in Urine by AutomatedOrdered By: Sarah Dodd on 07-14-2024 Mucus Auto Ql (U) 2+ [LPF] Abnormal [facility] Neutrophils [#/volume] in Bl ood by Automated countOrdered By: Sarah Dodd on 07-14-2024 Neutrophils (Bld) [#/Vol] 2.7 10*3/uL Normal 1.8-7.7 [facility] Comment on above: Performed By: #### U HCG, ADDONUAPLUS #### [facility] [address] [place] [address] Nitrite Test strip Ql (U)Ord ered By: Sarah Dodd on 07-14-2024 Nitrite Ql (U) Negative Negative [facility] No Panel InformationOrdered By: Sarah Dodd on 07-14-2024 Estimated GFR (CKD-EPI) > 60.0 mL/Min [facility] Creatinine Clearance (Chem 107.14 [facility] Nucleated erythrocytes [Pres ence] in Blood by Automated countOrdered By: Sarah Dodd on 07-14-2024 Nucleated RBC Auto Ql (Bld) 0.1 /100{WBC} 0-0.5 [facility] Platelet mean volume [Entiti c volume] in Blood by Automated countOrdered By: Sarah Dodd on 07-14-2024 Platelet mean volume (Bld) [Entitic vol] 9.1 fL Normal 6.3-10.7 [facility] Comment on above: Performed By: #### U HCG, ADDONUAPLUS #### [facility] [address] [place], [place] [id number] [place] Platelets [#/volume] in Bloo d by Automated countOrdered By: Sarah Dodd on 07-14-2024 Platelets (Bld) [#/Vol] 168 10*3/uL Normal 150-450 [facility] Comment on above: Performed By: #### U HCG, ADDONUAPLUS #### [facility] [address] [place] [address] [place] Potassium [Moles/volume] in Serum or PlasmaOrdered By: Sarah Dodd on 07-14-2024 Potassium [Moles/Vol] 3.3 mmol/L Low 3.5-5.1 [facility] Comment on above: Performed By: #### U HCG, ADDONUAPLUS #### [address] Protein [Mass/volume] in Ser um or PlasmaOrdered By: Sarah Dodd on 07-14-2024 Protein [Mass/Vol] 7.2 g/dL Normal 6.4-8.9 [facility] Comment on above: Performed By: #### U HCG, ADDONUAPLUS #### [place] [address] [place] Protein [Mass/volume] in Uri ne by Test stripOrdered By: Sarah Dodd on 07-14-2024 Protein (U) [Mass/Vol] 20 mg/dL High Negative [facility] [place] [facility] Comment on above: Order Comment: Name Collection Type:: Clean-Voided Midstream Performed By: #### U HCG, ADDONUAPLUS #### [place] [address] [place] Serum globulin measurement b y calculation (mass/volume)Ordered By: Sarah Dodd on 07-14-2024 Globulin (S) [Mass/Vol] 3.1 g/dL Normal [facility] Comment on above: Performed By: #### U HCG, ADDONUAPLUS #### [place] [address] [place] Serum or plasma albumin/glob ulin mass ratioOrdered By: Sarah Dodd on 07-14-2024 Albumin/Globulin [Mass ratio] 1.3 {ratio} Normal [facility] Comment on above: Performed By: #### U HCG, ADDONUAPLUS #### [address] Serum or plasma anion gap de terminationOrdered By: Sarah Dodd on 07-14-2024 Anion gap [Moles/Vol] 11.1 mmol/L Normal 6.0-15.0 [facility] Comment on above: Performed By: #### U HCG, ADDONUAPLUS #### [address] Serum or plasma non-glucuron idated bilirubin measurement (mass/volume)Ordered By: Sarah Dodd on 07-14-2024 Bilirubin.indirect [Mass/Vol] 0.3 mg/dL [facility] Sodium [Moles/volume] in Ser um or PlasmaOrdered By: Sarah Dodd on 07-14-2024 Sodium [Moles/Vol] 138 mmol/L Normal 136-145 [facility] Comment on above: Performed By: #### U HCG, ADDONUAPLUS #### [address] Specific gravity Test strip (U) [Rel density]Ordered By: Sarah Dodd on 07-14-2024 Specific gravity (U) [Rel density] 1.030 1.001-1.[address] [facility] Urea nitrogen [Mass/volume] in Serum or PlasmaOrdered By: Sarah Dodd on 07-14-2024 Urea nitrogen [Mass/Vol] 9 mg/dL Normal 7-25 [facility] Comment on above: Performed By: #### U HCG, ADDONUAPLUS #### [address] Urine appearanceOrdered By: Sarah Dodd on 07-14-2024 Appearance (U) Clear Normal Clear [facility] Comment on above: Order Comment: Name Collection Type:: Clean-Voided Midstream Performed By: #### U HCG, ADDONUAPLUS #### [address] Urobilinogen Test strip (U) [Mass/Vol]Ordered By: Sarah Dodd on 07-14-2024 Urobilinogen (U) [Mass/Vol] 3 mg/dL High Normal [facility] pH of Urine by Test stripOrd ered By: Sarah Dodd on 07-14-2024 pH (U) 6.0 [pH] Normal 5.0-9.0 [facility] Comment on above: Order Comment: Name Collection Type:: Clean-Voided Midstream Performed By: #### U HCG, ADDONUAPLUS #### [facility] [address] [place] [id number] [facility] CHLAMYDIA/GC BY PCRon 2023 CHLAMYDIA/GC BY PCR SPECIMEN SOURCE VAGINAL Corrected on 02/20 AT 1315: Previously reported as VAGINAL CHLAMYDIA DNA(PCR) Negative (qualifier value) Chlamydia trachomatis not detected by nucleic acid amplification. This does not exclude the possibility of infection because results are dependent on adequate specimen collection. GONORRHOEAE DNA(PCR) Negative (qualifier value) Neisseria gonorrhoeae not detected by nucleic acid amplification. This does not exclude the possibility of infection because results are dependent on adequate specimen collection. Normal [facility] Comment on above: Performed By: #### C GS #### [facility] ([id number]) [address] [place] [address], [address] [place] [address] VAGINITIS PANEL PCRon 2023 VAGINITIS PANEL PCR BACT. VAGINOSIS DNA Not detected (qualifier value) Qualitative results are reported based on detection and quantitation of targeted organism markers which include: Lactobacillus spp. (L. crispatus and L. jensenii), Gardnerella vaginalis, Atopobium vaginae, Bacterial Vaginosis Associated Bacteria-2 (BVAB-2) and Megasphaera-1 MARION SPECIES DNA Not detected (qualifier value) Marion species not detected include: C. albicans, C. tropicalis, C. parapsilosis or C. dubliniensis MARION KRUSEI DNA Not detected (qualifier value) No Marion krusei detected MARION GLABRATA DNA Not detected (qualifier value) No Marion glabrata detected TRICHOMONAS VAG DNA Not detected (qualifier value) No Trichomonas vaginalis detected NOTE BD MAX Vaginal Panel has not been evaluated for patients under 18 years old. Results for these patients should be reviewed and assessed in accordance with clinical presentation to determine patient diagnosis. Normal [facility] Comment on above: Performed By: #### V PPCR #### [facility] ([id number]) [address], [address] [place] [address] B-Type Natriuretic Peptideon 11-24-2023 Natriuretic peptide B (Bld) [Mass/Vol] 13.0 pg/mL Normal 5-100 [facility] Comment on above: Result Comment: PERF ORMED BY: [place] [address] PATHOLOGIST API DEVELOPER CLAU ZAVALA M.D. Performed By: #### U HCG, ADDONUAPLUS #### [address] Basic Metabolic Panelon Anion gap [Moles/Vol] 8.4 mmol/L Normal 6.0-15.0 [facility] Comment on above: Performed By: #### U HCG, ADDONUAPLUS #### [address] Calcium [Mass/Vol] 8.8 mg/dL Normal 8.6-10.3 [facility] Comment on above: Performed By: #### U HCG, ADDONUAPLUS #### [place] [address] [place] Chloride [Moles/Vol] 104 mmol/L Normal 98-107 [facility] Comment on above: Performed By: #### U HCG, ADDONUAPLUS #### [place] [address] [place] CO2 [Moles/Vol] 27.5 mmol/L Normal 21.0-31.0 [facility] Comment on above: Performed By: #### U HCG, ADDONUAPLUS #### [address] Creatinine [Mass/Vol] 0.77 mg/dL Normal 0.60-1.20 [facility] Comment on above: Performed By: #### U HCG, ADDONUAPLUS #### [place] [address] [place] Creatinine Clr Calc Pharmacy 103.65 Normal [facility] Comment on above: Result Comment: PERF ORMED BY: [place] [address] PATHOLOGIST API DEVELOPER CLAU ZAVALA M.D. Performed By: #### U HCG, ADDONUAPLUS #### [place] [address] [place] GFR/1.73 sq M.predicted MDRD (S/P/Bld) [Vol rate/Area] mL/min/{1.73_m2} Normal [facility] Comment on above: Performed By: #### U HCG, ADDONUAPLUS #### [address] Glucose [Mass/Vol] 103 mg/dL High 70-100 [facility] Comment on above: Result Comment: [facility] Glucose Reference Range is dependent on time and content of last meal. Glucose of more than 200 mg/dL in a nonstressed, ambulatory subject supports the diagnosis of Diabetes Mellitus. ADA recommended reference range Performed By: #### U HCG, ADDONUAPLUS #### [address] Potassium [Moles/Vol] 3.9 mmol/L Normal 3.5-5.1 [facility] Comment on above: Performed By: #### U HCG, ADDONUAPLUS #### [place] [address] [place] Sodium [Moles/Vol] 136 mmol/L Normal 136-145 [facility] Comment on above: Performed By: #### U HCG, ADDONUAPLUS #### [address] Urea nitrogen [Mass/Vol] 16 mg/dL Normal 7-25 [facility] Comment on above: Performed By: #### U HCG, ADDONUAPLUS #### [place] [address] [place] Complete Blood Count Auto Di ffon 11-24-2023 Basophils (Bld) [#/Vol] 0.0 10*3/uL Normal 0.0-0.2 [facility] Comment on above: Result Comment: PERF ORMED BY: [place] [address] PATHOLOGIST API DEVELOPER CLAU ZAVALA M.D. Performed By: #### U HCG, ADDONUAPLUS #### [address] Basophils/100 WBC (Bld) 0.6 % Normal . [facility] Comment on above: Performed By: #### U HCG, ADDONUAPLUS #### [address] Eosinophils (Bld) [#/Vol] 0.1 10*3/uL Normal 0.0-0.45 [facility] Comment on above: Performed By: #### U HCG, ADDONUAPLUS #### [address] Eosinophils/100 WBC (Bld) 1.8 % Normal . [facility] Comment on above: Performed By: #### U HCG, ADDONUAPLUS #### [address] Erythrocyte distribution width (RBC) [Ratio] 14.3 % Normal 11.9-15.3 [facility] Comment on above: Performed By: #### U HCG, ADDONUAPLUS #### [address] Hematocrit (Bld) [Volume fraction] 34.8 % Normal 34.0-46.4 [facility] Comment on above: Performed By: #### U HCG, ADDONUAPLUS #### [address] Hemoglobin (Bld) [Mass/Vol] 10.9 g/dL Low 11.8-15.4 [facility] Comment on above: Performed By: #### U HCG, ADDONUAPLUS #### [address] Lymphocytes (Bld) [#/Vol] 1.9 10*3/uL Normal 1.00-4.8 [facility] Comment on above: Performed By: #### U HCG, ADDONUAPLUS #### [address] Lymphocytes/100 WBC (Bld) 22.7 % Normal . [facility] Comment on above: Performed By: #### U HCG, ADDONUAPLUS #### [address] MCH (RBC) [Entitic mass] 23.1 pg Low 24.7-34.3 [facility] Comment on above: Performed By: #### U HCG, ADDONUAPLUS #### [address] MCV (RBC) [Entitic vol] 74.1 fL Low 80-100 [facility] Comment on above: Performed By: #### U HCG, ADDONUAPLUS #### [address] Mean Corpuscular HGB Conc 31.3 g/dL Low 32.0-35.0 [facility] Comment on above: Performed By: #### U HCG, ADDONUAPLUS #### [address] Monocytes (Bld) [#/Vol] 0.5 10*3/uL Normal 0.0-0.8 [facility] Comment on above: Performed By: #### U HCG, ADDONUAPLUS #### [place] [address] [place] Monocytes/100 WBC (Bld) 18.34 % Normal 0.00-20.00 [facility] Comment on above: Performed By: #### U HCG, ADDONUAPLUS #### [address] Monocytes/100 WBC (Bld) 6.4 % Normal . [facility] Comment on above: Performed By: #### U HCG, ADDONUAPLUS #### [place] [address] [place] Neutrophils (Bld) [#/Vol] 5.7 10*3/uL Normal 1.8-7.7 [facility] Comment on above: Performed By: #### U HCG, ADDONUAPLUS #### [place] [address] [place] Neutrophils/100 WBC (Bld) 68.5 % Normal . [facility] Comment on above: Performed By: #### U HCG, ADDONUAPLUS #### [address] NRBC% 0.1 /100{WBC} Normal 0-0.5 [facility] Comment on above: Performed By: #### U HCG, ADDONUAPLUS #### [address] Platelet mean volume (Bld) [Entitic vol] 9.1 fL Normal 6.3-10.7 [facility] Comment on above: Performed By: #### U HCG, ADDONUAPLUS #### [place] [address] [place] Platelets (Bld) [#/Vol] 191 10*3/uL Normal 150-450 [facility] Comment on above: Performed By: #### U HCG, ADDONUAPLUS #### [place] [address] [place] RBC (Bld) [#/Vol] 4.70 10*6/uL Normal 3.60-5.00 [facility] Comment on above: Performed By: #### U HCG, ADDONUAPLUS #### [place] [address] [place] WBC (Bld) [#/Vol] 8.3 10*3/uL Normal 3.8-11.6 [facility] Comment on above: Performed By: #### U HCG, ADDONUAPLUS #### [place] [address] [place] Creatine Kinaseon 11-24-2023 CK [Catalytic activity/Vol] 97 U/L Normal 30-223 [facility] Comment on above: Performed By: #### U HCG, ADDONUAPLUS #### [facility] [address] [place] [address] [place] Dipstick and Microscopicon 0 11-24-2023 Appearance (U) Clear Normal Clear [facility] Comment on above: Order Comment: Name Collection Type:: Clean-Voided Midstream Performed By: #### U HCG, ADDONUAPLUS #### [facility] [address] [place] [address] [place] Bacteria,Urine None Seen Normal None Seen [facility] Comment on above: Order Comment: Name Collection Type:: Clean-Voided Midstream Performed By: #### U HCG, ADDONUAPLUS #### [place] [address] [place] Bilirubin,Urine Negative Normal Negative [facility] Comment on above: Order Comment: Name Collection Type:: Clean-Voided Midstream Performed By: #### U HCG, ADDONUAPLUS #### [place] [address] [place] Color (U) Yellow Normal Yellow [facility] Comment on above: Order Comment: Name Collection Type:: Clean-Voided Midstream Performed By: #### U HCG, ADDONUAPLUS #### [place] [address] [place] Glucose Ql (U) Normal Normal Normal [facility] Comment on above: Order Comment: Name Collection Type:: Clean-Voided Midstream Performed By: #### U HCG, ADDONUAPLUS #### [place] [address] [place] Hyaline Casts,Urine 0-8 Normal 0-8 [facility] Comment on above: Order Comment: Name Collection Type:: Clean-Voided Midstream Performed By: #### U HCG, ADDONUAPLUS #### [place] [address] [place] Ketones Ql (U) Negative Normal Negative [facility] Comment on above: Order Comment: Name Collection Type:: Clean-Voided Midstream Performed By: #### U HCG, ADDONUAPLUS #### [address] Leukocyte esterase Test strip Ql (U) Negative Normal Negative [facility] Comment on above: Order Comment: Name Collection Type:: Clean-Voided Midstream Performed By: #### U HCG, ADDONUAPLUS #### [address] Nitrite,Urine Negative Normal Negative [facility] Comment on above: Order Comment: Name Collection Type:: Clean-Voided Midstream Performed By: #### U HCG, ADDONUAPLUS #### [address] Occult Blood,Urine 1+ High Negative [facility] Comment on above: Order Comment: Name Collection Type:: Clean-Voided Midstream Performed By: #### U HCG, ADDONUAPLUS #### [address] pH (U) 7.0 [pH] Normal 5.0-9.0 [facility] Comment on above: Order Comment: Name Collection Type:: Clean-Voided Midstream Performed By: #### U HCG, ADDONUAPLUS #### [address] Protein,Urine Negative Normal Negative [facility] Comment on above: Order Comment: Name Collection Type:: Clean-Voided Midstream Performed By: #### U HCG, ADDONUAPLUS #### [place] [address] [place] RBC,Urine 10-19 High 0-4 [facility] Comment on above: Order Comment: Name Collection Type:: Clean-Voided Midstream Performed By: #### U HCG, ADDONUAPLUS #### [place] [address] [place] Specificy [place],Urine 1.022 Normal 1.001-1.03 0 [facility] Comment on above: Order Comment: Name Collection Type:: Clean-Voided Midstream Performed By: #### U HCG, ADDONUAPLUS #### [address] Squamous Epithelial Cell,Urine 3-4 High 0-2 [facility] Comment on above: Order Comment: Name Collection Type:: Clean-Voided Midstream Performed By: #### U HCG, ADDONUAPLUS #### [address] Urobilinogen,Urine Normal Normal Normal [facility] Comment on above: Order Comment: Name Collection Type:: Clean-Voided Midstream Performed By: #### U HCG, ADDONUAPLUS #### [address] WBC,Urine 1-2 Normal 0-4 [facility] Comment on above: Order Comment: Name Collection Type:: Clean-Voided Midstream Performed By: #### U HCG, ADDONUAPLUS #### [address] ECG 12 lead ECGon 11-24-2023 ECG 12 lead ECG [facility] [place] [address] Electrocardiograph Report Signed Patient: Leandra Fonseca MR#: [id number] 1238 : 1990 Acct:[id number] Age/Sex: 33 / F ADM Date: 11/24/23 Loc: ER Room: Type: [facility] ER Attending Dr: Ordering Provider: Jim Vega [...] was found Confirmed by Jim Vega DO ([id number]) on 11/24/2023 9:23:04 AM Referred By: Electronically Signed By:Jim Vega DO Transcribed By: MUS Signed By Jim Vega DO 03/09/2 4 0923 Normal [facility] HCG,Urineon 11-24-2023 Beta HCG ( test) Ql (U) Negative Normal [facility] Comment on above: Order Comment: Name Collection Type:: Clean-Voided Midstream Result Comment: PERF ORMED BY: [place] [address] PATHOLOGIST API DEVELOPER CLAU ZAVALA M.D. Performed By: #### U HCG, ADDONUAPLUS #### [address] Hepatic Panelon 11-24-2023 Albumin [Mass/Vol] 4.0 g/dL Normal 3.5-5.7 [facility] Comment on above: Performed By: #### U HCG, ADDONUAPLUS #### [address] Albumin/Globulin [Mass ratio] 1.4 {ratio} Normal [facility] Comment on above: Performed By: #### U HCG, ADDONUAPLUS #### [address] ALP [Catalytic activity/Vol] 42 U/L Normal 34-104 [facility] Comment on above: Performed By: #### U HCG, ADDONUAPLUS #### [address] ALT [Catalytic activity/Vol] 11 U/L Normal 7-52 [facility] Comment on above: Performed By: #### U HCG, ADDONUAPLUS #### [address] AST [Catalytic activity/Vol] 12 U/L Low 13-39 [facility] Comment on above: Performed By: #### U HCG, ADDONUAPLUS #### [address] Bilirubin [Mass/Vol] 0.4 mg/dL Normal 0.3-1.0 [facility] Comment on above: Performed By: #### U HCG, ADDONUAPLUS #### [address] Bilirubin,Indirect 0.3 mg/dL Normal [facility] Comment on above: Performed By: #### U HCG, ADDONUAPLUS #### [address] Bilirubin.indirect [Mass/Vol] 0.10 mg/dL Normal 0.03-0.18 [facility] Comment on above: Performed By: #### U HCG, ADDONUAPLUS #### [address] Globulin (S) [Mass/Vol] 2.9 g/dL Normal [facility] Comment on above: Performed By: #### U HCG, ADDONUAPLUS #### [address] Protein [Mass/Vol] 6.9 g/dL Normal 6.4-8.9 [facility] Comment on above: Performed By: #### U HCG, ADDONUAPLUS #### [address] Partial Thromboplastin Timeo n 11-24-2023 aPTT Coag (Bld) [Time] 30.8 s Normal 25.1-36.5 Th e [facility] Comment on above: Result Comment: A he matocrit value greater than 55% may lead to inaccurate results in coagulation testing. Patients having hematocrit values >55% require a special collection tube for coagulation studies. Please contact the laboratory at [phone] for redraw instructions. PERFORMED BY: [place] [address] PATHOLOGIST API DEVELOPER CLAU ZAVALA M.D. Performed By: #### U HCG, ADDONUAPLUS #### [address] Prothrombin Time INRon 11-23 INR Coag (PPP) [Relative time] 1.1 {INR} Normal [facility] Comment on above: Result Comment: INR Therapeutic [...] valves: 3 - 4.5 Performed By: #### U HCG, ADDONUAPLUS #### [address] PT Coag (PPP) [Time] 12.9 s Normal 9.0-12.9 [facility] Comment on above: Result Comment: A he matocrit value greater than 55% may lead to inaccurate results in coagulation testing. Patients having hematocrit values >55% require a special collection tube for coagulation studies. Please contact the laboratory at [phone] for redraw instructions. Performed By: #### U HCG, ADDONUAPLUS #### [address] Troponin I High Sensitivityo n 11-24-2023 Troponin I High Sensitivity < 2.3 Normal 0.0-15.0 [facility] Comment on above: Result Comment: PERF ORMED BY: [place] [address] PATHOLOGIST API DEVELOPER CLAU ZAVALA M.D. Performed By: #### U HCG, ADDONUAPLUS #### [place] [id number] [facility] XR chest 1V portableon 11-23 XR chest 1V portable [facility] [place] [address] [place] [address] XRay Report Signed Patient: Leandra Fonseca MR#: [id number] 1238 : 1990 Acct:[id number] Age/Sex: 33 / F ADM Date: 11/24/23 Loc: ER Room: Type: [facility] ER Attending Dr: Copies to: Jim Vega [...] Michell Miller M.D.11/24/2023 11:32 AM Dictation Location: [place] [address] Transcribed By: [facility] 11/24/23 1132 Dictated By: Michell Miller MD 11/24/23 1131 Signed By: 11/24/23 1132 Normal [facility] Basic Metabolic Panelon 10-19 Anion gap [Moles/Vol] 11.0 mmol/L Normal 6.0-15.0 Th e [facility] Comment on above: Performed By: #### H EPATIC, PTT, BMP, LIPASE, PT, CBC #### [address] Calcium [Mass/Vol] 8.6 mg/dL Normal 8.6-10.3 [facility] Comment on above: Performed By: #### H EPATIC, PTT, BMP, LIPASE, PT, CBC #### [facility] [address] [place] [address] [place] Chloride [Moles/Vol] 107 mmol/L Normal 98-107 [facility] Comment on above: Performed By: #### H EPATIC, PTT, BMP, LIPASE, PT, CBC #### [facility] [address] CO2 [Moles/Vol] 22.9 mmol/L Normal 21.0-31.0 [facility] Comment on above: Performed By: #### H EPATIC, PTT, BMP, LIPASE, PT, CBC #### [facility] [address] [id number] [place] Creatinine [Mass/Vol] 0.64 mg/dL Normal 0.60-1.20 [facility] Comment on above: Performed By: #### H EPATIC, PTT, BMP, LIPASE, PT, CBC #### [facility] [address] [id number] [place] Creatinine Clr Calc Pharmacy 124.50 Normal [facility] Comment on above: Performed By: #### H EPATIC, PTT, BMP, LIPASE, PT, CBC #### [address] GFR/1.73 sq M.predicted MDRD (S/P/Bld) [Vol rate/Area] mL/min/{1.73_m2} Normal [facility] Comment on above: Performed By: #### H EPATIC, PTT, BMP, LIPASE, PT, CBC #### [address] Glucose [Mass/Vol] 94 mg/dL Normal 70-100 [facility] Comment on above: Result Comment: [facility] Glucose Reference Range is dependent on time and content of last meal. Glucose of more than 200 mg/dL in a nonstressed, ambulatory subject supports the diagnosis of Diabetes Mellitus. ADA recommended reference range Performed By: #### H EPATIC, PTT, BMP, LIPASE, PT, CBC #### [address] Potassium [Moles/Vol] 3.9 mmol/L Normal 3.5-5.1 [facility] Comment on above: Performed By: #### H EPATIC, PTT, BMP, LIPASE, PT, CBC #### [address] Sodium [Moles/Vol] 137 mmol/L Normal 136-145 [facility] Comment on above: Performed By: #### H EPATIC, PTT, BMP, LIPASE, PT, CBC #### [address] Urea nitrogen [Mass/Vol] 12 mg/dL Normal 7-25 [facility] Comment on above: Performed By: #### H EPATIC, PTT, BMP, LIPASE, PT, CBC #### [address] abdomen pelvis w compa CT abdomen pelvis w [facility] [place] [address] [place] [address] CT Scan Report Signed Patient: Leandra Fonseca MR#: [id number] 1238 : 1990 Acct:[id number] Age/Sex: 33 / F ADM Date: 11/13/23 Loc: ER Room: Type: [facility] ER Attending Dr: Copies to: Frank Silva [...] Rebecca Ybarra M.D.11/13/2023 10:47 AM Dictation Location: [place] [address] Transcribed By: [facility] 11/13/23 1047 Dictated By: Rebecca Ybarra II, MD 11/13/23 1036 Signed By: 11/13/23 1047 Normal [facility] [facility] Complete Blood Count Auto Di ffon 11-13-2023 Basophils (Bld) [#/Vol] 0.1 10*3/uL Normal 0.0-0.2 [facility] Comment on above: Result Comment: PERF ORMED BY: [place] [address] PATHOLOGIST API DEVELOPER CLAU ZAVALA M.D. Performed By: #### H EPATIC, PTT, BMP, LIPASE, PT, CBC #### [address] Basophils/100 WBC (Bld) 0.7 % Normal . [facility] Comment on above: Performed By: #### H EPATIC, PTT, BMP, LIPASE, PT, CBC #### [address] Eosinophils (Bld) [#/Vol] 0.1 10*3/uL Normal 0.0-0.45 [facility] Comment on above: Performed By: #### H EPATIC, PTT, BMP, LIPASE, PT, CBC #### [address] Eosinophils/100 WBC (Bld) 1.5 % Normal . [facility] Comment on above: Performed By: #### H EPATIC, PTT, BMP, LIPASE, PT, CBC #### [address] Erythrocyte distribution width (RBC) [Ratio] 14.6 % Normal 11.9-15.3 [facility] Comment on above: Performed By: #### H EPATIC, PTT, BMP, LIPASE, PT, CBC #### [address] Hematocrit (Bld) [Volume fraction] 34.1 % Normal 34.0-46.4 [facility] Comment on above: Performed By: #### H EPATIC, PTT, BMP, LIPASE, PT, CBC #### [address] Hemoglobin (Bld) [Mass/Vol] 10.9 g/dL Low 11.8-15.4 [facility] Comment on above: Performed By: #### H EPATIC, PTT, BMP, LIPASE, PT, CBC #### [address] Lymphocytes (Bld) [#/Vol] 1.9 10*3/uL Normal 1.00-4.8 [facility] Comment on above: Performed By: #### H EPATIC, PTT, BMP, LIPASE, PT, CBC #### [address] Lymphocytes/100 WBC (Bld) 23.7 % Normal . [facility] Comment on above: Performed By: #### H EPATIC, PTT, BMP, LIPASE, PT, CBC #### [address] MCH (RBC) [Entitic mass] 23.7 pg Low 24.7-34.3 [facility] Comment on above: Performed By: #### H EPATIC, PTT, BMP, LIPASE, PT, CBC #### [address] MCV (RBC) [Entitic vol] 74.1 fL Low 80-100 [facility] Comment on above: Performed By: #### H EPATIC, PTT, BMP, LIPASE, PT, CBC #### [address] Mean Corpuscular HGB Conc 31.9 g/dL Low 32.0-35.0 [facility] Comment on above: Performed By: #### H EPATIC, PTT, BMP, LIPASE, PT, CBC #### [address] Monocytes (Bld) [#/Vol] 0.5 10*3/uL Normal 0.0-0.8 [facility] Comment on above: Performed By: #### H EPATIC, PTT, BMP, LIPASE, PT, CBC #### [address] Monocytes/100 WBC (Bld) 18.59 % Normal 0.00-20.00 [facility] Comment on above: Performed By: #### H EPATIC, PTT, BMP, LIPASE, PT, CBC #### [address] Monocytes/100 WBC (Bld) 6.9 % Normal . [facility] Comment on above: Performed By: #### H EPATIC, PTT, BMP, LIPASE, PT, CBC #### [address] Neutrophils (Bld) [#/Vol] 5.3 10*3/uL Normal 1.8-7.7 [facility] Comment on above: Performed By: #### H EPATIC, PTT, BMP, LIPASE, PT, CBC #### [address] Neutrophils/100 WBC (Bld) 67.2 % Normal . [facility] Comment on above: Performed By: #### H EPATIC, PTT, BMP, LIPASE, PT, CBC #### [address] NRBC% 0.1 /100{WBC} Normal 0-0.5 [facility] Comment on above: Performed By: #### H EPATIC, PTT, BMP, LIPASE, PT, CBC #### [address] Platelet mean volume (Bld) [Entitic vol] 9.2 fL Normal 6.3-10.7 [facility] Comment on above: Performed By: #### H EPATIC, PTT, BMP, LIPASE, PT, CBC #### [place] [address] [place] Platelets (Bld) [#/Vol] 199 10*3/uL Normal 150-450 [facility] Comment on above: Performed By: #### H EPATIC, PTT, BMP, LIPASE, PT, CBC #### [facility] [address] RBC (Bld) [#/Vol] 4.60 10*6/uL Normal 3.60-5.00 [facility] Comment on above: Performed By: #### H EPATIC, PTT, BMP, LIPASE, PT, CBC #### [facility] [address] WBC (Bld) [#/Vol] 7.9 10*3/uL Normal 3.8-11.6 [facility] Comment on above: Performed By: #### H EPATIC, PTT, BMP, LIPASE, PT, CBC #### [address] Dipstick and Microscopicon 0 11-13-2023 Appearance (U) Clear Normal Clear [facility] Comment on above: Order Comment: Name Collection Type:: Clean-Voided Midstream Performed By: #### A DDONUAPLUS UHCG ####[address] Bacteria,Urine None Seen Normal None Seen [facility] Comment on above: Order Comment: Name Collection Type:: Clean-Voided Midstream Performed By: #### A DDONUAPLUS UHCG ####[address] Bilirubin,Urine Negative Normal Negative [facility] Comment on above: Order Comment: Name Collection Type:: Clean-Voided Midstream Performed By: #### A DDONUAPLUS UHCG ####[address] Color (U) Yellow Normal Yellow [facility] Comment on above: Order Comment: Name Collection Type:: Clean-Voided Midstream Performed By: #### A DDONUAPLUS UHCG ####[address] [place] [address] [facility] Glucose Ql (U) Normal Normal Normal [facility] Comment on above: Order Comment: Name Collection Type:: Clean-Voided Midstream Performed By: #### A DDONUAPLUS, UHCG ####[address] [address] [facility] Hyaline Casts,Urine None Seen Normal 0-8 [facility] Comment on above: Order Comment: Name Collection Type:: Clean-Voided Midstream Performed By: #### A DDONUAPLUS, UHCG ####[address] [address] [facility] Ketones Ql (U) Negative Normal Negative [facility] Comment on above: Order Comment: Name Collection Type:: Clean-Voided Midstream Performed By: #### A DDONUAPLUS, UHCG ####[address] [address] [facility] Leukocyte esterase Test strip Ql (U) Negative Normal Negative [facility] Comment on above: Order Comment: Name Collection Type:: Clean-Voided Midstream Performed By: #### A DDONUAPLUS, UHCG ####[place] [id number] [facility] Nitrite,Urine Negative Normal Negative [facility] Comment on above: Order Comment: Name Collection Type:: Clean-Voided Midstream Performed By: #### A DDONUAPLUS, UHCG ####[address] [address] [facility] Occult Blood,Urine 1+ High Negative [facility] Comment on above: Order Comment: Name Collection Type:: Clean-Voided Midstream Performed By: #### A DDONUAPLUS, UHCG ####[address] [address] [facility] pH (U) 6.5 [pH] Normal 5.0-9.0 [facility] Comment on above: Order Comment: Name Collection Type:: Clean-Voided Midstream Performed By: #### A DDONUAPLUS, UHCG ####[place] [id number] [place] Protein,Urine Negative Normal Negative [facility] Comment on above: Order Comment: Name Collection Type:: Clean-Voided Midstream Performed By: #### A DDONUAPLUS, UHCG ####[address] RBC,Urine 5-9 High 0-4 [facility] Comment on above: Order Comment: Name Collection Type:: Clean-Voided Midstream Performed By: #### A DDONUAPLUS, CG ####[address] Specificy [place],Urine 1.011 Normal 1.001-1.03 0 [facility] Comment on above: Order Comment: Name Collection Type:: Clean-Voided Midstream Performed By: #### A DDONUAPLUS, UHCG ####[address] Squamous Epithelial Cell,Urine None Seen Normal 0-2 [facility] Comment on above: Order Comment: Name Collection Type:: Clean-Voided Midstream Performed By: #### A DDONUAPLUS, CG ####[address] Urobilinogen,Urine Normal Normal Normal [facility] Comment on above: Order Comment: Name Collection Type:: Clean-Voided Midstream Performed By: #### A DDONUAPLUS, CG ####[address] WBC LM.HPF (Urine sed) [#/Area] 0 /[HPF] Normal 0-4 [facility] Comment on above: Order Comment: Name Collection Type:: Clean-Voided Midstream Performed By: #### A DDONUAPLUS, UHCG ####[address] HCG,Urineon 11-13-2023 Beta HCG ( test) Ql (U) Negative Normal [facility] Comment on above: Order Comment: Name Collection Type:: Clean-Voided Midstream Result Comment: PERF ORMED BY: [place] [address] PATHOLOGIST API DEVELOPER CLAU ZAVALA M.D. Performed By: #### U HCG, ADDONUAPLUS #### [address] Hepatic Panelon 11-13-2023 Albumin [Mass/Vol] 4.1 g/dL Normal 3.5-5.7 [facility] Comment on above: Performed By: #### H EPATIC, PTT, BMP, LIPASE, PT, CBC #### [address] Albumin/Globulin [Mass ratio] 1.5 {ratio} Normal [facility] Comment on above: Performed By: #### H EPATIC, PTT, BMP, LIPASE, PT, CBC #### [address] ALP [Catalytic activity/Vol] 39 U/L Normal 34-104 [facility] Comment on above: Performed By: #### H EPATIC, PTT, BMP, LIPASE, PT, CBC #### [address] ALT [Catalytic activity/Vol] 10 U/L Normal 7-52 [facility] Comment on above: Performed By: #### H EPATIC, PTT, BMP, LIPASE, PT, CBC #### [address] AST [Catalytic activity/Vol] 12 U/L Low 13-39 [facility] Comment on above: Performed By: #### H EPATIC, PTT, BMP, LIPASE, PT, CBC #### [address] Bilirubin [Mass/Vol] 0.4 mg/dL Normal 0.3-1.0 [facility] Comment on above: Performed By: #### H EPATIC, PTT, BMP, LIPASE, PT, CBC #### [address] Bilirubin,Indirect 0.3 mg/dL Normal [facility] Comment on above: Performed By: #### H EPATIC, PTT, BMP, LIPASE, PT, CBC #### [address] Bilirubin.indirect [Mass/Vol] 0.10 mg/dL Normal 0.03-0.18 [facility] Comment on above: Performed By: #### H EPATIC, PTT, BMP, LIPASE, PT, CBC #### [address] Globulin (S) [Mass/Vol] 2.8 g/dL Normal [facility] Comment on above: Performed By: #### H EPATIC, PTT, BMP, LIPASE, PT, CBC #### [address] Protein [Mass/Vol] 6.9 g/dL Normal 6.4-8.9 [facility] Comment on above: Performed By: #### H EPATIC, PTT, BMP, LIPASE, PT, CBC #### [address] Lipaseon 11-13-2023 Lipase [Catalytic activity/Vol] 39.0 U/L Normal 11.0-82.0 [facility] Comment on above: Result Comment: PERF ORMED BY: [place] [address] PATHOLOGIST API DEVELOPER CLAU ZAVALA M.D. Performed By: #### H EPATIC, PTT, BMP, LIPASE, PT, CBC #### [address] Partial Thromboplastin Timeo n 11-13-2023 aPTT Coag (Bld) [Time] 29.8 s Normal 25.1-36.5 Th e [facility] Comment on above: Result Comment: A he matocrit value greater than 55% may lead to inaccurate results in coagulation testing. Patients having hematocrit values >55% require a special collection tube for coagulation studies. Please contact the laboratory at [phone] for redraw instructions. PERFORMED BY: [place] [address] PATHOLOGIST API DEVELOPER CLAU ZAVALA M.D. Performed By: #### H EPATIC, PTT, BMP, LIPASE, PT, CBC #### [facility] [address] [place] [id number] [facility] Prothrombin Time INRon 11-13 INR Coag (PPP) [Relative time] 1.0 {INR} Normal [facility] Comment on above: Result Comment: INR Therapeutic [...] valves: 3 - 4.5 Performed By: #### H EPATIC, PTT, BMP, LIPASE, PT, CBC #### [facility] [address] [place] [id number] [facility] PT Coag (PPP) [Time] 12.0 s Normal 9.0-12.9 [facility] Comment on above: Result Comment: A he matocrit value greater than 55% may lead to inaccurate results in coagulation testing. Patients having hematocrit values >55% require a special collection tube for coagulation studies. Please contact the laboratory at [phone] for redraw instructions. Performed By: #### H EPATIC, PTT, BMP, LIPASE, PT, CBC #### [facility] [address] [place] [id number] [facility] Physician Referralon [facility] Physician Referral [phone] [id number] Normal [facility] Alanine aminotransferase [En zymatic activity/volume] in Serum or PlasmaOrdered By: Kelly Hough on 09-27-2023 ALT [Catalytic activity/Vol] 9 U/L Normal - [facility] Comment on above: Performed By: #### C MP, FE and TIBC, CONSTANTINO, CBC, [id number] ####[facility] [place] [id number] [facility] Albumin [Mass/volume] in Ser um or Plasma by Bromocresol green (BCG) dye binding methoOrdered By: Kelly Ryannemesio on 09-27-2023 Albumin BCG dye [Mass/Vol] 4.3 g/dL 3.5-5.7 [facility] Alkaline phosphatase [Enzyma tic activity/volume] in Serum or PlasmaOrdered By: Kelly Ryannemesio on 09-27-2023 ALP [Catalytic activity/Vol] 41 U/L Normal 34-104 [facility] Comment on above: Performed By: #### C MP, FE and TIBC, CONSTANTINO, CBC, [id number] ####[address] Aspartate aminotransferase [ Enzymatic activity/volume] in Serum or PlasmaOrdered By: Kelly Ryannemesio on 09-27-2023 AST [Catalytic activity/Vol] 10 U/L Low 13-39 [facility] Comment on above: Performed By: #### C MP, FE and TIBC, CONSTANTINO, CBC, [id number] ####[address] Automated basophil %Ordered By: Kelly Ryannemesio on 09-27-2023 Basophils/100 WBC (Bld) 0.3 % Normal . [facility] Comment on above: Performed By: #### C MP, FE and TIBC, CONSTANTINO, CBC, [id number] ####[address] Automated basophil countOrde red By: Kelly Ryannemesio on 09-27-2023 Basophils (Bld) [#/Vol] 0.0 10*3/uL Normal 0.0-0.2 [facility] Comment on above: Result Comment: PERF ORMED BY: [facility] [address] [place] [address] PATHOLOGIST API DEVELOPER CLAU ZAVALA M.D. Performed By: #### C MP, FE and TIBC, CONSTANTINO, CBC, [id number] ####[address] Automated blood monocyte cou ntOrdered By: Kelly Ryannemesio on 09-27-2023 Monocytes (Bld) [#/Vol] 0.4 10*3/uL Normal 0.0-0.8 [facility] Comment on above: Performed By: #### C MP, FE and TIBC, CONSTANTINO, CBC, [id number] ####[address] Automated eosinophil %Ordere d By: Kelly France on 09-27-2023 Eosinophils/100 WBC (Bld) 0.8 % Normal . [facility] Comment on above: Performed By: #### C MP, FE and TIBC, CONSTANTINO, CBC, [id number] ####[address] Automated eosinophil countOr dered By: Kelly Ryannemesio on 09-27-2023 Eosinophils (Bld) [#/Vol] 0.1 10*3/uL Normal 0.0-0.45 [facility] Comment on above: Performed By: #### C MP, FE and TIBC, CONSTANTINO, CBC, [id number] ####[address] Automated monocyte %Ordered By: Kelly France on 09-27-2023 Monocytes/100 WBC (Bld) 5.3 % Normal . [facility] Comment on above: Performed By: #### C MP, FE and TIBC, CONSTANTINO, CBC, [id number] ####[address] Automated neutrophil %Ordere d By: Kelly France on 09-27-2023 Neutrophils/100 WBC (Bld) 68.9 % Normal . [facility] Comment on above: Performed By: #### C MP, FE and TIBC, CONSTANTINO, CBC, [id number] ####[address] Bilirubin.total [Mass/volume ] in Serum or PlasmaOrdered By: Kelly France on 09-27-2023 Bilirubin [Mass/Vol] 0.7 mg/dL Normal 0.3-1.0 [facility] Comment on above: Performed By: #### C MP, FE and TIBC, CONSTANTINO, CBC, [id number] ####[address] Calcium [Mass/volume] in Ser um or PlasmaOrdered By: Kelly Hough on 09-27-2023 Calcium [Mass/Vol] 9.0 mg/dL Normal 8.6-10.3 [facility] Comment on above: Performed By: #### C MP, FE and TIBC, CONSTANTINO, CBC, [id number] ####[address] Carbon dioxide, total [Moles /volume] in Serum or PlasmaOrdered By: Kelly Ryanmagnoliacristel on 09-27-2023 CO2 [Moles/Vol] 29.3 mmol/L Normal 21.0-31.0 [facility] Comment on above: Performed By: #### C MP, FE and TIBC, CONSTANTINO, CBC, [id number] ####[address] Chloride [Moles/volume] in S salas or PlasmaOrdered By: Kelly Ryannemesio on 09-27-2023 Chloride [Moles/Vol] 107 mmol/L Normal 98-107 [facility] Comment on above: Performed By: #### C MP, FE and TIBC, CONSTANTINO, CBC, [id number] ####[address] Complete Blood Count Auto Di ffon 09-27-2023 Mean Corpuscular HGB Conc 31.6 g/dL Low 32.0-35.0 [facility] Comment on above: Performed By: #### C MP, FE and TIBC, CONSTANTINO, CBC, [id number] ####[address] NRBC% 0.1 /100{WBC} Normal 0-0.5 [facility] Comment on above: Performed By: #### C MP, FE and TIBC, CONSTANTINO, CBC, [id number] ####[address] [address] [place] Comprehensive Metabolic Pane tommie 09-27-2023 Albumin [Mass/Vol] 4.3 g/dL Normal 3.5-5.7 [facility] Comment on above: Performed By: #### C MP, FE and TIBC, CONSTANTINO, CBC, [id number] ####[address] Creatinine Clr Calc Pharmacy 105.57 Normal [facility] Comment on above: Performed By: #### C MP, FE and TIBC, CONSTANTINO, CBC, [id number] ####[address] GFR/1.73 sq M.predicted MDRD (S/P/Bld) [Vol rate/Area] mL/min/{1.73_m2} Normal [facility] Comment on above: Performed By: #### C MP, FE and TIBC, CONSTANTINO, CBC, [id number] ####[address] Creatinine [Mass/volume] in Serum or PlasmaOrdered By: Kelly Hough on 09-27-2023 Creatinine [Mass/Vol] 0.72 mg/dL Normal 0.60-1.20 [facility] Comment on above: Performed By: #### C MP, FE and TIBC, CONSTANTINO, CBC, [id number] ####[address] Erythrocyte distribution wid th [Ratio] by Automated countOrdered By: Kelly Hough on 09-27-2023 Erythrocyte distribution width (RBC) [Ratio] 13.7 % Normal 11.9-15.3 [facility] Comment on above: Performed By: #### C MP, FE and TIBC, CONSTANTINO, CBC, [id number] ####[address] Erythrocytes [#/volume] in B lood by Automated countOrdered By: Kelly Hough on 09-27-2023 RBC (Bld) [#/Vol] 4.68 10*6/uL Normal 3.60-5.[address] [facility] Comment on above: Performed By: #### C MP, FE and TIBC, CONSTANTINO, CBC, [id number] ####[facility] [id number] [place] [address] [facility] Ferritin [Mass/volume] in Se rum or PlasmaOrdered By: Kelly Hough on 09-27-2023 Ferritin [Mass/Vol] 171.3 ng/mL Normal 11.0-306.8 [facility] Comment on above: Performed By: #### C MP, FE and TIBC, CONSTANTINO, CBC, [id number] ####[facility] [id number] [place] [address] [facility] Folate [Mass/volume] in Seru m or PlasmaOrdered By: Kelly Hough on 09-27-2023 Folate [Mass/Vol] 5.5 ng/mL >5.9 [facility] Comment on above: Folate reference ran ge: >5.9 ng/mlThe WHO technical consultation on folate and vitamin [id number] has determined that folate concentrations lessthan 4 ng/ml are considered deficient. Glucose [Mass/volume] in Ser um or PlasmaOrdered By: Kelly Hough on 09-27-2023 Glucose [Mass/Vol] 113 mg/dL High 70-100 [facility] Comment on above: ADA recommended refe rence rangeRandom Glucose Reference Range is dependent on time and content of last meal. Glucose of more than 200 mg/dL in a nonstressed, ambulatory subject supports the diagnosis of Diabetes Mellitus. Result Comment: [place] Glucose Reference Range is dependent on time and content of last meal. Glucose of more than 200 mg/dL in a nonstressed, ambulatory subject supports the diagnosis of Diabetes Mellitus. ADA recommended reference range Performed By: #### C MP, FE and TIBC, CONSTANTINO, CBC, [id number] ####[facility] [id number] [place] [id number] [facility] HIV 1/O/2 Antigen/Antibodyon 09-27-2023 HIV Screen 4th Generation Non-Reactive Normal Non Reactive [facility] Comment on above: Order Comment: Reaso n for Exam Screening for STD (sexually transmitted disease) Result Comment: HIV Negative HIV-1/HIV-2 antibodies and HIV-1 p24 antigen were NOT detected. There is no laboratory evidence of HIV infection. Performed at: [facility] [employer] [id number] Flat Cutter: Alan Macias PhD, Phone: [phone] Performed By: #### H IV SCREEN, RPR W RFX ####[facility] , HIV 1 and HIV-2 antibody ass ay with HIV-1 p24 antigen detectionOrdered By: Yudelka Lopez on 09-27-2023 HIV 1+2 Ab+HIV1 p24 Ag IA Ql Non-Reactive Non Reactive [facility] Comment on above: HIV NegativeHIV-1/HI V-2 antibodies and HIV-1 p24 antigen were NOTdetected. There is no laboratory evidence of HIV infection.Performed at: [facility] [id number] Director: Alan Macias PhD, Phone: [phone] Hematocrit [Volume Fraction] of Blood by Automated countOrdered By: Kelly Hough on 09-27-2023 Hematocrit (Bld) [Volume fraction] 34.8 % Normal 34.0-46.4 [facility] Comment on above: Performed By: #### C MP, FE and TIBC, CONSTANTINO, CBC, [id number] ####[place] [address] [address] Hemoglobin [Mass/volume] in BloodOrdered By: Kelly Hough on 09-27-2023 Hemoglobin (Bld) [Mass/Vol] 11.0 g/dL Low 11.8-15.4 [facility] Comment on above: Performed By: #### C MP, FE and TIBC, CONSTANTINO, CBC, [id number] ####[place] [id number] [facility] Iron [Mass/volume] in Serum or PlasmaOrdered By: Kelly Hough on 09-27-2023 Iron [Mass/Vol] 59 ug/dL Normal 50-212 [facility] Comment on above: Performed By: #### C MP, FE and TIBC, CONSTANTINO, CBC, [id number] ####[facility] [address] Iron and TIBC Profileon 09-17 % Iron Saturation 25.5 % Normal 20-50 [facility] Comment on above: Performed By: #### C MP, FE and TIBC, CONSTANTINO, CBC, [id number] ####[place] [address] [address] Total Iron Binding Capacity 231 ug/dL Low 255-450 [facility] Comment on above: Performed By: #### C MP, FE and TIBC, CONSTANTINO, CBC, [id number] ####[place] [address] [address] Iron binding capacity [Mass/ volume] in Serum or PlasmaOrdered By: Kelly Hough on 09-27-2023 Iron binding capacity [Mass/Vol] 231 ug/dL 255-450 [facility] Iron saturation [Mass Fracti on] in Serum or PlasmaOrdered By: Kelly Hough on 09-27-2023 Iron saturation [Mass fraction] 25.5 % 20-50 [facility] Leukocytes [#/volume] correc delmer for nucleated erythrocytes in Blood by Automated counOrdered By: Kelly Hough on 09-27-2023 WBC corrected for nucl RBC Auto (Bld) [#/Vol] 8.3 10*3/uL 3.8-11.6 [facility] Leukocytes [#/volume] in Blo od by Automated countOrdered By: Kelly Hough on 09-27-2023 WBC (Bld) [#/Vol] 8.3 10*3/uL Normal 3.8-11.6 [facility] Comment on above: Performed By: #### C MP, FE and TIBC, CONSTANTINO, CBC, [id number] ####[place] [address] [address] Lymphocytes [#/volume] in Bl ood by Automated countOrdered By: Kelly Hough on 09-27-2023 Lymphocytes (Bld) [#/Vol] 2.1 10*3/uL Normal 1.00-4.8 [facility] Comment on above: Performed By: #### C MP, FE and TIBC, CONSTANTINO, CBC, [id number] ####[address] Lymphocytes/100 leukocytes i n Blood by Automated countOrdered By: Kelly France on 09-27-2023 Lymphocytes/100 WBC (Bld) 24.7 % Normal . [facility] Comment on above: Performed By: #### C MP, FE and TIBC, CONSTANTINO, CBC, [id number] ####[address] MCH [Entitic mass] by Automa delmer countOrdered By: Kelly France on 09-27-2023 MCH (RBC) [Entitic mass] 23.5 pg Low 24.7-34.3 [facility] Comment on above: Performed By: #### C MP, FE and TIBC, CONSTANTINO, CBC, [id number] ####[address] MCHC Auto (RBC) [Mass/Vol]Or dered By: Kelly France on 09-27-2023 MCHC (RBC) [Mass/Vol] 31.6 g/dL 32.0-35.0 [facility] MCV [Entitic volume] by Auto mated countOrdered By: Kelly France on 09-27-2023 MCV (RBC) [Entitic vol] 74.4 fL Low 80-100 [facility] Comment on above: Performed By: #### C MP, FE and TIBC, CONSTANTINO, CBC, [id number] ####[address] Neutrophils [#/volume] in Bl ood by Automated countOrdered By: Kelly France on 09-27-2023 Neutrophils (Bld) [#/Vol] 5.8 10*3/uL Normal 1.8-7.7 [facility] Comment on above: Performed By: #### C MP, FE and TIBC, CONSTANTINO, CBC, [id number] ####[address] [place] [address] [place] No Panel InformationOrdered By: Kelly Ryanmagnoliacristel on 09-27-2023 Estimated GFR (CKD-EPI) > 60.0 mL/Min [facility] Creatinine Clearance (Chem 105.57 [facility] Nucleated erythrocytes [Pres ence] in Blood by Automated countOrdered By: Kelly Ryannemesio on 09-27-2023 Nucleated RBC Auto Ql (Bld) 0.1 /100{WBC} 0-0.5 [facility] Platelet mean volume [Entiti c volume] in Blood by Automated countOrdered By: Kelly Ryannemesio on 09-27-2023 Platelet mean volume (Bld) [Entitic vol] 9.3 fL Normal 6.3-10.7 [facility] Comment on above: Performed By: #### C MP, FE and TIBC, CONSTANTINO, CBC, [id number] ####[address] Platelets [#/volume] in Bloo d by Automated countOrdered By: Kelly Ryannemesio on 09-27-2023 Platelets (Bld) [#/Vol] 197 10*3/uL Normal 150-450 [facility] Comment on above: Performed By: #### C MP, FE and TIBC, CONSTANTINO, CBC, [id number] ####[place] [id number] [facility] Potassium [Moles/volume] in Serum or PlasmaOrdered By: Kelly France on 09-27-2023 Potassium [Moles/Vol] 3.4 mmol/L Low 3.5-5.1 [facility] Comment on above: Performed By: #### C MP, FE and TIBC, CONSTANTINO, CBC, [id number] ####[address] Protein [Mass/volume] in Ser um or PlasmaOrdered By: Kelly Ryannemesio on 09-27-2023 Protein [Mass/Vol] 6.8 g/dL Normal 6.4-8.9 [facility] Comment on above: Performed By: #### C MP, FE and TIBC, CONSTANTINO, CBC, [id number] ####[facility] [id number] RPR w/rfx to Quant TP Abson 09-27-2023 RPR, Rfx Quant RPR Non-Reactive Normal Non Reactive [facility] Comment on above: Order Comment: Reaso n for Exam Screening for STD (sexually transmitted disease) Result Comment: Perf ormed at: CB - [facility] [address] [id number] Flat Cutter: Alan Macias PhD, Phone: [phone] PERFORMED BY: [facility] [address] [place] [address] PATHOLOGIST API DEVELOPER CLAU ZAVALA M.D. Performed By: #### H IV SCREEN, RPR W RFX ####[facility] , [facility] [Presence] in Seru m by RPROrdered By: Yudelka Lopez on 09-27-2023 [facility] RPR Ql (S) Non-Reactive Non Reactive [facility] Comment on above: Performed at: CB - [facility] [address] [id number] Director: Alan Macias PhD, Phone: [phone] Serum globulin measurement b y calculation (mass/volume)Ordered By: Kelly Hough on 09-27-2023 Globulin (S) [Mass/Vol] 2.5 g/dL [facility] Comment on above: Performed By: #### C MP, FE and TIBC, CONSTANTINO, CBC, [id number] ####[place] [address] [address] Serum or plasma albumin/glob ulin mass ratioOrdered By: Kelly Hough on 09-27-2023 Albumin/Globulin [Mass ratio] 1.7 {ratio} [facility] Comment on above: Performed By: #### C MP, FE and TIBC, CONSTANTINO, CBC, [id number] ####[address] Serum or plasma anion gap de terminationOrdered By: Kelly Hough on 09-27-2023 Anion gap [Moles/Vol] 7.1 mmol/L Normal 6.0-15.0 [facility] Comment on above: Performed By: #### C MP, FE and TIBC, CONSTANTINO, CBC, [id number] ####[place] [address] [place] [address] [facility] Sodium [Moles/volume] in Ser um or PlasmaOrdered By: Kelly Hough on 09-27-2023 Sodium [Moles/Vol] 140 mmol/L Normal 136-145 [facility] Comment on above: Performed By: #### C MP, FE and TIBC, CONSTANTINO, CBC, [id number] ####[place] [address] [place] [address] [facility] Transferrin [Mass/volume] in Serum or PlasmaOrdered By: Kelly Hough on 09-27-2023 Transferrin [Mass/Vol] 165 mg/dL Low 203-362 [facility] Comment on above: Performed By: #### C MP, FE and TIBC, CONSTANTINO, CBC, [id number] ####[address] [address] [facility] Urea nitrogen [Mass/volume] in Serum or PlasmaOrdered By: Kelly Hough on 09-27-2023 Urea nitrogen [Mass/Vol] 10 mg/dL Normal 7-25 [facility] Comment on above: Performed By: #### C MP, FE and TIBC, CONSTANTINO, CBC, [id number] ####[address] [address] [facility] Vit. B12/Folate Profileon Folate 5.5 ng/mL Low >5.9 [facility] Comment on above: Result Comment: Breana te reference range: >5.9 ng/ml The WHO technical consultation on folate and vitamin b12 deficiencies has determined that folate concentrations less than 4 ng/ml are considered deficient. PERFORMED BY: [facility] [address] [place] [id number] PATHOLOGIST API DEVELOPER CLAU ZAVALA M.D. Performed By: #### C MP, FE and TIBC, CONSTANTINO, CBC, [id number] ####[facility] [id number] Vitamin B12 ser/plasOrdered By: Kelly France on 09-27-2023 Cobalamin (Vitamin B12) [Mass/Vol] 446 pg/mL Normal 180-914 [facility] Comment on above: Performed By: #### C MP, FE and TIBC, CONSTANTINO, CBC, [id number] ####[facility] [id number] [address] Absolute reticulocyte countO rdered By: Kelly Hough on 06-27-2023 Reticulocytes (Bld) [#/Vol] 0.066 10*6/uL 0.024-0.[address] [facility] Haptoglobin [Mass/volume] in Serum or PlasmaOrdered By: Kelly Houhg on 06-27-2023 Haptoglobin [Mass/Vol] 184 mg/dL 44-215 [facility] Lactate dehydrogenase [Enzym atic activity/volume] in Serum or Plasma by Lactate to pyOrdered By: Kelly Hough on 06-27-2023 LDH Lactate to pyruvate reaction [Catalytic activity/Vol] 137 U/L 140-271 [facility] Monocyte %Ordered By: Kelly amaya on 06-27-2023 Monocyte % 145 ug/dL 80-158 [facility] Comment on above: This test was develo ped and its performance characteristicsdetermined by [facility]. It has not been cleared orapproved by the Food and Drug Administration. Detection Limit = 5Performed at: [facility] [address] [id number] Director: Artemio Guillen MD, Phone: [phone] Reticulocytes/100 RBC Auto ( Bld)Ordered By: Kelly Hough on 06-27-2023 Reticulocytes/100 RBC (Bld) 1.4 % 0.5-1.5 [facility] Alanine aminotransferase [En zymatic activity/volume] in Serum or PlasmaOrdered By: Kelly Hough on 06-14-2023 ALT [Catalytic activity/Vol] 13 U/L 7-52 [facility] Albumin [Mass/volume] in Ser um or Plasma by Bromocresol green (BCG) dye binding methoOrdered By: Kelly Hough on 06-14-2023 Albumin BCG dye [Mass/Vol] 3.8 g/dL 3.5-5.7 [facility] Alkaline phosphatase [Enzyma tic activity/volume] in Serum or PlasmaOrdered By: Kelly Hough on 06-14-2023 ALP [Catalytic activity/Vol] 33 U/L 34-104 [facility] Aspartate aminotransferase [ Enzymatic activity/volume] in Serum or PlasmaOrdered By: Kelly Hough on 06-14-2023 AST [Catalytic activity/Vol] 10 U/L 13-39 [facility] Basophils Auto (Bld) [#/Vol] Ordered By: Kelly Hough on 06-14-2023 Basophils (Bld) [#/Vol] 0.0 10*3/uL 0.0-0.2 [facility] Basophils/100 WBC Auto (Bld) Ordered By: Kelly Hough on 06-14-2023 Basophils/100 WBC (Bld) 0.4 % . [facility] Bilirubin.total [Mass/volume ] in Serum or PlasmaOrdered By: Kelly Hough on 06-14-2023 Bilirubin [Mass/Vol] 0.4 mg/dL 0.3-1.0 [facility] Calcium [Mass/volume] in Ser um or PlasmaOrdered By: Kelly Hough on 06-14-2023 Calcium [Mass/Vol] 8.8 mg/dL 8.6-10.3 [facility] Carbon dioxide, total [Moles /volume] in Serum or PlasmaOrdered By: Kelly Hough on 06-14-2023 CO2 [Moles/Vol] 28.5 mmol/L 21.0-31.0 [facility] Chloride [Moles/volume] in S salas or PlasmaOrdered By: Kelly Hough on 06-14-2023 Chloride [Moles/Vol] 104 mmol/L 98-107 [facility] Creatinine [Mass/volume] in Serum or PlasmaOrdered By: Kelly Hough on 06-14-2023 Creatinine [Mass/Vol] 0.82 mg/dL 0.60-1.20 [facility] Eosinophils Auto (Bld) [#/Vo l]Ordered By: Kelly Hough on 06-14-2023 Eosinophils (Bld) [#/Vol] 0.2 10*3/uL 0.0-0.45 [facility] Eosinophils/100 WBC Auto (Bl d)Ordered By: Kelly Hough on 06-14-2023 Eosinophils/100 WBC (Bld) 1.9 % . [facility] Erythrocyte distribution wid th Auto (RBC) [Ratio]Ordered By: Kelly Hough on 06-14-2023 Erythrocyte distribution width (RBC) [Ratio] 13.9 % 11.9-15.3 [facility] Ferritin [Mass/volume] in Se rum or PlasmaOrdered By: Kelly Hough on 06-14-2023 Ferritin [Mass/Vol] 146.0 ng/mL 11.0-306.8 [facility] Globulin Calc (S) [Mass/Vol] Ordered By: Kelly Hough on 06-14-2023 Globulin (S) [Mass/Vol] 2.0 g/dL [facility] Glucose [Mass/volume] in Ser um or PlasmaOrdered By: Kelly Hough on 06-14-2023 Glucose [Mass/Vol] 86 mg/dL 70-100 [facility] Comment on above: ADA recommended refe rence rangeRandom Glucose Reference Range is dependent on time and content of last meal. Glucose of more than 200 mg/dL in a nonstressed, ambulatory subject supports the diagnosis of Diabetes Mellitus. Hematocrit Auto (Bld) [Volum e fraction]Ordered By: Kelly Hough on 06-14-2023 Hematocrit (Bld) [Volume fraction] 32.4 % 34.0-46.4 [facility] Hemoglobin [Mass/volume] in BloodOrdered By: Kelly Hough on 06-14-2023 Hemoglobin (Bld) [Mass/Vol] 10.3 g/dL 11.8-15.4 [facility] Iron [Mass/volume] in Serum or PlasmaOrdered By: Kelly Hough on 06-14-2023 Iron [Mass/Vol] 62 ug/dL 50-212 [facility] Iron binding capacity [Mass/ volume] in Serum or PlasmaOrdered By: Kelly Hough on 06-14-2023 Iron binding capacity [Mass/Vol] 190 ug/dL 255-450 [facility] Iron saturation [Mass Fracti on] in Serum or PlasmaOrdered By: Kelly Hough on 06-14-2023 Iron saturation [Mass fraction] 32.6 % 20-50 [facility] Leukocytes [#/volume] correc delmer for nucleated erythrocytes in Blood by Automated counOrdered By: Kelly Hough on 06-14-2023 WBC corrected for nucl RBC Auto (Bld) [#/Vol] 8.4 10*3/uL 3.8-11.6 [facility] Lymphocytes Auto (Bld) [#/Vo l]Ordered By: Kelly Hough on 06-14-2023 Lymphocytes (Bld) [#/Vol] 2.6 10*3/uL 1.00-4.8 [facility] Lymphocytes/100 WBC Auto (Bl d)Ordered By: Kelly Hough on 06-14-2023 Lymphocytes/100 WBC (Bld) 31.3 % . [facility] MCH Auto (RBC) [Entitic mass ]Ordered By: Kelly Hough on 06-14-2023 MCH (RBC) [Entitic mass] 23.8 pg 24.7-34.3 [facility] MCHC Auto (RBC) [Mass/Vol]Or dered By: Kelly Hough on 06-14-2023 MCHC (RBC) [Mass/Vol] 31.7 g/dL 32.0-35.0 [facility] MCV Auto (RBC) [Entitic vol] Ordered By: Kelly Hough on 06-14-2023 MCV (RBC) [Entitic vol] 75.2 fL 80-100 [facility] Monocytes Auto (Bld) [#/Vol] Ordered By: Kelly Hough on 06-14-2023 Monocytes (Bld) [#/Vol] 0.5 10*3/uL 0.0-0.8 [facility] Monocytes/100 WBC Auto (Bld) Ordered By: Kelly Hough on 06-14-2023 Monocytes/100 WBC (Bld) 5.9 % . [facility] Neutrophils Auto (Bld) [#/Vo l]Ordered By: Kelly Hough on 06-14-2023 Neutrophils (Bld) [#/Vol] 5.1 10*3/uL 1.8-7.7 [facility] Neutrophils/100 WBC Auto (Bl d)Ordered By: Kelly Hough on 06-14-2023 Neutrophils/100 WBC (Bld) 60.5 % . [facility] No Panel InformationOrdered By: Kelly Hough on 06-14-2023 Estimated GFR (CKD-EPI) > 60.0 mL/Min [facility] Creatinine Clearance (Chem 93.10 [facility] Nucleated erythrocytes [Pres ence] in Blood by Automated countOrdered By: Kelly Hough on 06-14-2023 Nucleated RBC Auto Ql (Bld) 0.1 /100{WBC} 0-0.5 [facility] Platelet mean volume Auto (B ld) [Entitic vol]Ordered By: Kelly Hough on 06-14-2023 Platelet mean volume (Bld) [Entitic vol] 9.6 fL 6.3-10.7 [facility] Platelets Auto (Bld) [#/Vol] Ordered By: Kelly Hough on 06-14-2023 Platelets (Bld) [#/Vol] 189 10*3/uL 150-450 [facility] Potassium [Moles/volume] in Serum or PlasmaOrdered By: Kelly Hough on 06-14-2023 Potassium [Moles/Vol] 4.1 mmol/L 3.5-5.1 [facility] Protein [Mass/volume] in Ser um or PlasmaOrdered By: Kelly Hough on 06-14-2023 Protein [Mass/Vol] 5.8 g/dL 6.4-8.9 [facility] RBC Auto (Bld) [#/Vol]Ordere d By: Kelly Hough on 06-14-2023 RBC (Bld) [#/Vol] 4.31 10*6/uL 3.60-5.[address] [facility] Serum or plasma albumin/glob ulin mass ratioOrdered By: Kelly Hough on 06-14-2023 Albumin/Globulin [Mass ratio] 1.9 {ratio} [facility] Serum or plasma anion gap de terminationOrdered By: Kelly Hough on 06-14-2023 Anion gap [Moles/Vol] 10.6 mmol/L 6.0-15.0 [facility] Sodium [Moles/volume] in Ser um or PlasmaOrdered By: Kelly Hough on 06-14-2023 Sodium [Moles/Vol] 139 mmol/L 136-145 [facility] Thyrotropin [Units/volume] i n Serum or PlasmaOrdered By: Dayne Horton on 06-14-2023 TSH Qn 1.43 m[IU]/L 0.45-5.33 [facility] Thyroxine (T4) free [Mass/vo lume] in Serum or PlasmaOrdered By: Dayne Horton on 06-14-2023 Free T4 [Mass/Vol] 1.22 ng/dL 0.61-1.12 [facility] Transferrin [Mass/volume] in Serum or PlasmaOrdered By: Kelly Hough on 06-14-2023 Transferrin [Mass/Vol] 136 mg/dL 203-362 [facility] Triiodothyronine (T3) Free [ Mass/volume] in Serum or PlasmaOrdered By: Dayne Horton on 06-14-2023 Free T3 [Mass/Vol] 3.99 pg/mL 2.50-3.90 [facility] Urea nitrogen [Mass/volume] in Serum or PlasmaOrdered By: Kelly Hough on 06-14-2023 Urea nitrogen [Mass/Vol] 11 mg/dL 7-25 [facility] WBC Auto (Bld) [#/Vol]Ordere d By: Kelly Hough on 06-14-2023 WBC (Bld) [#/Vol] 8.4 10*3/uL 3.8-11.6 [facility] Provider Letteron 04-09-2023 Provider Letter (Inserted Image. Radha ble to display) April 09, 2023 LEANDRA FONSECA [address] [place] [address] : 1990 Dear Leandra , We have been trying to reach you with no success. It is important that you return our call regarding your referral from Kelvin Draper upon receiving this letter. Also, at the time of your call, please provide us with your current information. Thank you for your prompt attention to this matter. Sincerely, General Surgery [facility] [phone] Normal [facility] Lab Reportson 04-04-2023 Lab Reports [id number]:127 Normal [facility] Physician Referralon 023 Physician Referral [id number]:127 Normal [facility] Albumin [Mass/volume] in Ser um or PlasmaOrdered By: Kelly Hough on 03-21-2023 Albumin [Mass/Vol] 3.6 g/dL 2.9-4.4 [facility] IgA [Mass/volume] in Serum o r PlasmaOrdered By: Kelly Hough on 03-21-2023 IgA [Mass/Vol] 158 mg/dL 87-352 [facility] IgG [Mass/volume] in Serum o r PlasmaOrdered By: Kelly Hough on 03-21-2023 IgG [Mass/Vol] 1046 mg/dL 586-1602 [facility] IgM [Mass/volume] in Serum o r PlasmaOrdered By: Kelly Hough on 03-21-2023 IgM [Mass/Vol] 302 mg/dL 26-217 [facility] Comment on above: Performed at: [place] [id number] Director: Alan Macias PhD, Phone: [phone] Immunoglobulin light chains. kappa.free [Mass/volume] in SerumOrdered By: Kelly Hough on 03-21-2023 Immunoglobulin light chains.kappa.free (S) [Mass/Vol] 19.2 mg/L 3.3-19.4 [facility] Immunoglobulin light chains. kappa.free/Immunoglobulin light chains.lambda.free [MassOrdered By: Kelly Hough on 03-21-2023 Immunoglobulin light chains.kappa.free/Immu noglobulin light chains.lambda.free (S) [Mass ratio] 1.31 0.26-1.65 [facility] Comment on above: Performed at: - [employer] [address] [id number] Director: Alan Macias PhD, Phone: [phone] Immunoglobulin light chains. lambda.free [Mass/volume] in Serum or PlasmaOrdered By: Kelly Hough on 03-21-2023 Immunoglobulin light chains.lambda.free [Mass/Vol] 14.7 mg/L 5.7-26.3 [facility] No Panel InformationOrdered By: Kelly Hough on 03-21-2023 Protein Electrophoresis M-Emanuel Not observed g/dL Not Observed [facility] Protein Electrophoresis Note See comment . [facility] Comment on above: Protein electrophore sis scan will follow via computer,mail, or event sales manager delivery. Serum Immunofixation See comment . [facility] Comment on above: No monoclonality det ected. Slides for Pathologist Review Ordered path review [facility] Protein [Mass/volume] in Ser um or PlasmaOrdered By: Kelly Hough on 03-21-2023 Protein [Mass/Vol] 6.5 g/dL 6.0-8.5 [facility] Serum globulin measurement ( mass/volume)Ordered By: Kelly Hough on 03-21-2023 Globulin (S) [Mass/Vol] 2.9 g/dL 2.2-3.9 [facility] Serum or plasma albumin/glob ulin mass ratioOrdered By: Kelly Hough on 03-21-2023 Albumin/Globulin [Mass ratio] 1.2 {ratio} 0.7-1.7 [facility] Serum or plasma alpha 1 glob ulin measurement by electrophoresis (mass/volume)Ordered By: Kelly Hough on 03-21-2023 Alpha 1 globulin Elph [Mass/Vol] 0.3 g/dL 0.0-0.4 [facility] Serum or plasma alpha 2 glob ulin measurement by electrophoresis (mass/volume)Ordered By: Kelly Hough on 03-21-2023 Alpha 2 globulin Elph [Mass/Vol] 0.8 g/dL 0.4-1.0 [facility] Serum or plasma beta globuli n measurement by electrophoresis (mass/volume)Ordered By: Kelly France on 03-21-2023 Beta globulin Elph [Mass/Vol] 0.7 g/dL 0.7-1.3 [facility] Serum or plasma gamma globul in measurement by electrophoresis (mass/volume)Ordered By: Kelly Hough on 03-21-2023 Gamma globulin Elph [Mass/Vol] 1.1 g/dL 0.4-1.8 [facility] Alanine aminotransferase [En zymatic activity/volume] in Serum or PlasmaOrdered By: Jim Vega on 02-06-2023 ALT [Catalytic activity/Vol] 10 U/L 7-52 [facility] Albumin [Mass/volume] in Ser um or Plasma by Bromocresol green (BCG) dye binding methoOrdered By: Jim Vega on 02-06-2023 Albumin BCG dye [Mass/Vol] 4.2 g/dL 3.5-5.7 [facility] Alkaline phosphatase [Enzyma tic activity/volume] in Serum or PlasmaOrdered By: Jim Vega on 02-06-2023 ALP [Catalytic activity/Vol] 45 U/L 34-104 [facility] Aspartate aminotransferase [ Enzymatic activity/volume] in Serum or PlasmaOrdered By: Jim Vega on 02-06-2023 AST [Catalytic activity/Vol] 12 U/L 13-39 [facility] Automated erythrocytes count in urine sediment (number/area)Ordered By: Jim Vega on 02-06-2023 RBC Auto (Urine sed) [#/Area] 5-9 [HPF] 0-4 [facility] Automated leukocytes count i n urine sediment (number/area)Ordered By: Jim Vega on 02-06-2023 WBC Auto (Urine sed) [#/Area] 3-4 [HPF] 0-4 [facility] Basophils Auto (Bld) [#/Vol] Ordered By: Jim Vega on 02-06-2023 Basophils (Bld) [#/Vol] 0.0 10*3/uL 0.0-0.2 [facility] Basophils/100 WBC Auto (Bld) Ordered By: Jim Vega on 02-06-2023 Basophils/100 WBC (Bld) 0.7 % . [facility] Bilirubin Test strip Ql (U)O rdered By: Jim Vega on 02-06-2023 Bilirubin Ql (U) Negative Negative [facility] Bilirubin.total [Mass/volume ] in Serum or PlasmaOrdered By: Jim Vega on 02-06-2023 Bilirubin [Mass/Vol] 0.5 mg/dL 0.3-1.0 [facility] Calcium [Mass/volume] in Ser um or PlasmaOrdered By: Jim Vega on 02-06-2023 Calcium [Mass/Vol] 8.5 mg/dL 8.6-10.3 [facility] Carbon dioxide, total [Moles /volume] in Serum or PlasmaOrdered By: Jim Vega on 02-06-2023 CO2 [Moles/Vol] 26.0 mmol/L 21.0-31.0 [facility] Chloride [Moles/volume] in S salas or PlasmaOrdered By: Jim Vega on 02-06-2023 Chloride [Moles/Vol] 105 mmol/L 98-107 [facility] Color Auto (U)Ordered By: Narinder red Silvia on 02-06-2023 Color (U) Yellow Yellow [facility] Creatinine [Mass/volume] in Serum or PlasmaOrdered By: Jim Vega on 02-06-2023 Creatinine [Mass/Vol] 0.78 mg/dL 0.60-1.20 [facility] Eosinophils Auto (Bld) [#/Vo l]Ordered By: Jim Vega on 02-06-2023 Eosinophils (Bld) [#/Vol] 0.1 10*3/uL 0.0-0.45 [facility] Eosinophils/100 WBC Auto (Bl d)Ordered By: iJm Vega on 02-06-2023 Eosinophils/100 WBC (Bld) 2.2 % . [facility] Erythrocyte distribution wid th Auto (RBC) [Ratio]Ordered By: Jim Vega on 02-06-2023 Erythrocyte distribution width (RBC) [Ratio] 14.3 % 11.9-15.3 [facility] Globulin Calc (S) [Mass/Vol] Ordered By: Jim Vega on 02-06-2023 Globulin (S) [Mass/Vol] 3.0 g/dL [facility] Glucose [Mass/volume] in Ser um or PlasmaOrdered By: Jim Vega on 02-06-2023 Glucose [Mass/Vol] 92 mg/dL 70-100 [facility] Comment on above: ADA recommended refe rence rangeRandom Glucose Reference Range is dependent on time and content of last meal. Glucose of more than 200 mg/dL in a nonstressed, ambulatory subject supports the diagnosis of Diabetes Mellitus. HCG ( test) IA.rapi d Ql (U)Ordered By: Jim Vega on 02-06-2023 HCG ( test) Ql (U) Negative [facility] Hematocrit Auto (Bld) [Volum e fraction]Ordered By: Jim Vega on 02-06-2023 Hematocrit (Bld) [Volume fraction] 35.2 % 34.0-46.4 [facility] Hemoglobin [Mass/volume] in BloodOrdered By: Jim Vega on 02-06-2023 Hemoglobin (Bld) [Mass/Vol] 11.0 g/dL 11.8-15.4 [facility] Ketones Auto test strip (U) [Mass/Vol]Ordered By: Jim Vega on 02-06-2023 Ketones (U) [Mass/Vol] Negative Negative [facility] - UrinalysisOrder ed By: Jim Vega on 02-06-2023 Hyaline casts LM Ql (Urine sed) 0-8 [LPF] 0-8 [facility] Leukocytes [#/volume] correc delmer for nucleated erythrocytes in Blood by Automated counOrdered By: Jim Vega on 02-06-2023 WBC corrected for nucl RBC Auto (Bld) [#/Vol] 5.3 10*3/uL 3.8-11.6 [facility] Lymphocytes Auto (Bld) [#/Vo l]Ordered By: Jim Vega on 02-06-2023 Lymphocytes (Bld) [#/Vol] 1.4 10*3/uL 1.00-4.8 [facility] Lymphocytes/100 WBC Auto (Bl d)Ordered By: Jim Vega on 02-06-2023 Lymphocytes/100 WBC (Bld) 25.8 % . [facility] MCH Auto (RBC) [Entitic mass ]Ordered By: Jim Vega on 02-06-2023 MCH (RBC) [Entitic mass] 22.8 pg 24.7-34.3 [facility] MCHC Auto (RBC) [Mass/Vol]Or dered By: Jim Vega on 02-06-2023 MCHC (RBC) [Mass/Vol] 31.1 g/dL 32.0-35.0 [facility] MCV Auto (RBC) [Entitic vol] Ordered By: Jim Vega on 02-06-2023 MCV (RBC) [Entitic vol] 73.2 fL 80-100 [facility] Monocyte distribution width [Entitic volume] in Blood by AutomatedOrdered By: Jim Vega on 02-06-2023 Monocyte distribution width Auto (Bld) [Entitic vol] 18.18 % 0.00-20.00 [facility] Monocytes Auto (Bld) [#/Vol] Ordered By: Jim Vega on 02-06-2023 Monocytes (Bld) [#/Vol] 0.4 10*3/uL 0.0-0.8 [facility] Monocytes/100 WBC Auto (Bld) Ordered By: Jim Vega on 02-06-2023 Monocytes/100 WBC (Bld) 7.1 % . [facility] Neutrophils Auto (Bld) [#/Vo l]Ordered By: Jim Vega on 02-06-2023 Neutrophils (Bld) [#/Vol] 3.4 10*3/uL 1.8-7.7 [facility] Neutrophils/100 WBC Auto (Bl d)Ordered By: Jim Vega on 02-06-2023 Neutrophils/100 WBC (Bld) 64.2 % . [facility] Nitrite Test strip Ql (U)Ord ered By: Jim Vega on 02-06-2023 Nitrite Ql (U) Negative Negative [facility] No Panel InformationOrdered By: Jim Vega on 02-06-2023 Estimated GFR (CKD-EPI) > 60.0 mL/Min [facility] Creatinine Clearance (Chem 100.96 [facility] Nucleated erythrocytes [Pres ence] in Blood by Automated countOrdered By: Jim Vega on 02-06-2023 Nucleated RBC Auto Ql (Bld) 0.1 /100{WBC} 0-0.5 [facility] Platelet mean volume Auto (B ld) [Entitic vol]Ordered By: Jim Vega on 02-06-2023 Platelet mean volume (Bld) [Entitic vol] 9.4 fL 6.3-10.7 [facility] Platelets Auto (Bld) [#/Vol] Ordered By: Jim Vega on 02-06-2023 Platelets (Bld) [#/Vol] 175 10*3/uL 150-450 [facility] Potassium [Moles/volume] in Serum or PlasmaOrdered By: Jim Vega on 02-06-2023 Potassium [Moles/Vol] 3.5 mmol/L 3.5-5.1 [facility] Protein Auto test strip (U) [Mass/Vol]Ordered By: Jim Vega on 02-06-2023 Protein (U) [Mass/Vol] Negative Negative [facility] Protein [Mass/volume] in Ser um or PlasmaOrdered By: Jim Vega on 02-06-2023 Protein [Mass/Vol] 7.2 g/dL 6.4-8.9 [facility] RBC Auto (Bld) [#/Vol]Ordere d By: Jim Vega on 02-06-2023 RBC (Bld) [#/Vol] 4.81 10*6/uL 3.60-5.[address] [facility] Serum or plasma albumin/glob ulin mass ratioOrdered By: Jim Vega on 02-06-2023 Albumin/Globulin [Mass ratio] 1.4 {ratio} [facility] Serum or plasma anion gap de terminationOrdered By: Jim Vega on 02-06-2023 Anion gap [Moles/Vol] 9.5 mmol/L 6.0-15.0 [facility] Sodium [Moles/volume] in Ser um or PlasmaOrdered By: Jim Vega on 02-06-2023 Sodium [Moles/Vol] 137 mmol/L 136-145 [facility] Specific gravity Auto test s trip (U) [Rel density]Ordered By: Jim Vega on 02-06-2023 Specific gravity (U) [Rel density] 1.010 1.001-1.[address] [facility] Squamous epithelial cells de tection in urine sediment by light microscopyOrdered By: Jim Vega on 02-06-2023 Epithelial cells.squamous LM Ql (Urine sed) 5-9 [HPF] 0-2 [facility] Urea nitrogen [Mass/volume] in Serum or PlasmaOrdered By: Jim Vega on 02-06-2023 Urea nitrogen [Mass/Vol] 11 mg/dL 7-25 [facility] Urine bacteria detection by automated methodOrdered By: Jim Vega on 02-06-2023 Bacteria Auto Ql (U) None seen None Seen [facility] Urine clarity by refractomet ry automatedOrdered By: Jim Vega on 02-06-2023 Clarity Refractometry automated (U) Clear Clear [facility] Urine glucose measurement by automated test strip (mass/volume)Ordered By: Jim Vega on 02-06-2023 Glucose Auto test strip (U) [Mass/Vol] Normal mg/dL Normal [facility] Urine hemoglobin detection b y automated test stripOrdered By: Jim Vega on 02-06-2023 Hemoglobin Auto test strip Ql (U) Trace Negative [facility] Urine leukocyte esterase det ection by automated test stripOrdered By: Jim Vega on 02-06-2023 Leukocyte esterase Auto test strip Ql (U) Negative Negative [facility] Urobilinogen Auto test strip (U) [Mass/Vol]Ordered By: Jim Vega on 02-06-2023 Urobilinogen (U) [Mass/Vol] Normal mg/dL Normal [facility] WBC Auto (Bld) [#/Vol]Ordere d By: Jim Vega on 02-06-2023 WBC (Bld) [#/Vol] 5.3 10*3/uL 3.8-11.6 [facility] pH Auto test strip (U)Ordere d By: Jim Vega on 02-06-2023 pH (U) 8.0 [pH] 5.0-9.0 [facility] Ferritin [Mass/volume] in Se rum or PlasmaOrdered By: Kelly Hough on 01-24-2023 Ferritin [Mass/Vol] 64.3 ng/mL 11.0-306.[address] [facility] Iron [Mass/volume] in Serum or PlasmaOrdered By: Kelly Hough on 01-24-2023 Iron [Mass/Vol] 85 ug/dL 50-212 [facility] Iron binding capacity [Mass/ volume] in Serum or PlasmaOrdered By: Kelly Hough on 01-24-2023 Iron binding capacity [Mass/Vol] 227 ug/dL 255-450 [facility] Iron saturation [Mass Fracti on] in Serum or PlasmaOrdered By: Kelly Hough on 01-24-2023 Iron saturation [Mass fraction] 37.4 % 20-50 [facility] Transferrin [Mass/volume] in Serum or PlasmaOrdered By: Kelly Hough on 01-24-2023 Transferrin [Mass/Vol] 162 mg/dL 203-362 [facility] Basophils Auto (Bld) [#/Vol] Ordered By: Kelly Hough on 12-25-2022 Basophils (Bld) [#/Vol] 0.0 10*3/uL 0.0-0.2 [facility] Basophils/100 WBC Auto (Bld) Ordered By: Kelly Hough on 12-25-2022 Basophils/100 WBC (Bld) 0.3 % . [facility] C reactive protein [Mass/vol ume] in Serum or PlasmaOrdered By: Imcatina Shanks on 12-25-2022 CRP [Mass/Vol] < 0.5 mg/dL 0.0-0.5 [facility] Calprotectin [Mass/mass] in StoolOrdered By: Imad Asaad on 12-25-2022 Calprotectin (Stl) [Mass/Mass] 32 ug/g 0-120 [facility] Comment on above: Concentration Interp retation Follow-Up<16 - 50 ug/g Normal None>50 -120 ug/g Borderline Re-evaluate in 4-6 weeks >120 ug/g Abnormal Repeat as clinically indicatedPerformed at: - [facility] [address], [place] [id number] Director: Artemio Guillen MD, Phone: [phone] Eosinophils Auto (Bld) [#/Vo l]Ordered By: Kelly Hough on 12-25-2022 Eosinophils (Bld) [#/Vol] 0.1 10*3/uL 0.0-0.45 [facility] Eosinophils/100 WBC Auto (Bl d)Ordered By: Kelly Houhg on 12-25-2022 Eosinophils/100 WBC (Bld) 1.1 % . [facility] Erythrocyte distribution wid th Auto (RBC) [Ratio]Ordered By: Kelly Hough on 12-25-2022 Erythrocyte distribution width (RBC) [Ratio] 15.5 % 11.9-15.3 [facility] Erythrocyte sedimentation ra te by Photometric methodOrdered By: Jose Shanks on 12-25-2022 ESR Photometric method (Bld) [Velocity] 32 mm/hr 0-19 [facility] Ferritin [Mass/volume] in Se rum or PlasmaOrdered By: Kelly Hough on 12-25-2022 Ferritin [Mass/Vol] 58.3 ng/mL 11.0-306.[address] [facility] Hematocrit Auto (Bld) [Volum e fraction]Ordered By: Kelly Hough on 12-25-2022 Hematocrit (Bld) [Volume fraction] 35.3 % 34.0-46.4 [facility] Hemoglobin [Mass/volume] in BloodOrdered By: Kelly Hough on 12-25-2022 Hemoglobin (Bld) [Mass/Vol] 11.0 g/dL 11.8-15.4 [facility] IgA [Mass/volume] in Serum o r PlasmaOrdered By: Jose Shanks on 12-25-2022 IgA [Mass/Vol] 164 mg/dL 87-352 [facility] Comment on above: Performed at: [address] [id number] Director: Alan Macias PhD, Phone: [phone] Iron [Mass/volume] in Serum or PlasmaOrdered By: Kelly Hough on 12-25-2022 Iron [Mass/Vol] 112 ug/dL 50-212 [facility] Iron binding capacity [Mass/ volume] in Serum or PlasmaOrdered By: Kelly Hough on 12-25-2022 Iron binding capacity [Mass/Vol] 241 ug/dL 255-450 [facility] Iron saturation [Mass Fracti on] in Serum or PlasmaOrdered By: Kelly Hough on 12-25-2022 Iron saturation [Mass fraction] 46.5 % 20-50 [facility] Leukocytes [#/volume] correc delmer for nucleated erythrocytes in Blood by Automated counOrdered By: Kelly Hough on 12-25-2022 WBC corrected for nucl RBC Auto (Bld) [#/Vol] 6.8 10*3/uL 3.8-11.6 [facility] Lymphocytes Auto (Bld) [#/Vo l]Ordered By: Kelly Hough on 12-25-2022 Lymphocytes (Bld) [#/Vol] 1.7 10*3/uL 1.00-4.8 [facility] Lymphocytes/100 WBC Auto (Bl d)Ordered By: Kelly Hough on 12-25-2022 Lymphocytes/100 WBC (Bld) 25.5 % . [facility] MCH Auto (RBC) [Entitic mass ]Ordered By: Kelly Hough on 12-25-2022 MCH (RBC) [Entitic mass] 22.3 pg 24.7-34.3 [facility] MCHC Auto (RBC) [Mass/Vol]Or dered By: Kelly Hough on 12-25-2022 MCHC (RBC) [Mass/Vol] 31.1 g/dL 32.0-35.0 [facility] MCV Auto (RBC) [Entitic vol] Ordered By: Kelly Hough on 12-25-2022 MCV (RBC) [Entitic vol] 71.8 fL 80-100 [facility] Monocytes Auto (Bld) [#/Vol] Ordered By: Kelly Hough on 12-25-2022 Monocytes (Bld) [#/Vol] 0.4 10*3/uL 0.0-0.8 [facility] Monocytes/100 WBC Auto (Bld) Ordered By: Kelly Hough on 12-25-2022 Monocytes/100 WBC (Bld) 6.3 % . [facility] Neutrophils Auto (Bld) [#/Vo l]Ordered By: Kelly Hough on 12-25-2022 Neutrophils (Bld) [#/Vol] 4.5 10*3/uL 1.8-7.7 [facility] Neutrophils/100 WBC Auto (Bl d)Ordered By: Kelly Hough on 12-25-2022 Neutrophils/100 WBC (Bld) 66.8 % . [facility] No Panel InformationOrdered By: Jose Shanks on 12-25-2022 Endomysial IgA Antibody Negative Negative [facility] Nucleated erythrocytes [Pres ence] in Blood by Automated countOrdered By: Kelly Hough on 12-25-2022 Nucleated RBC Auto Ql (Bld) 0.2 /100{WBC} 0-0.5 [facility] Platelet mean volume Auto (B ld) [Entitic vol]Ordered By: Kelly Hough on 12-25-2022 Platelet mean volume (Bld) [Entitic vol] 9.5 fL 6.3-10.7 [facility] Platelets Auto (Bld) [#/Vol] Ordered By: Kelly Hough on 12-25-2022 Platelets (Bld) [#/Vol] 191 10*3/uL 150-450 [facility] RBC Auto (Bld) [#/Vol]Ordere d By: Kelly Hough on 12-25-2022 RBC (Bld) [#/Vol] 4.92 10*6/uL 3.60-5.[address] [facility] Serum gliadin peptide IgA an tibody assay (units/volume)Ordered By: Jose Shanks on 12-25-2022 Gliadin peptide IgA Qn (S) 7 units 0-19 [facility] Comment on above: Negative 0 - 19 Weak Positive 20 - 30 Moderate to Strong Positive >30 Serum gliadin peptide IgG an tibody assay (units/volume)Ordered By: Jose Shanks on 12-25-2022 Gliadin peptide IgG Qn (S) 3 units 0-19 [facility] Comment on above: Negative 0 - 19 Weak Positive 20 - 30 Moderate to Strong Positive >30 Serum tissue transglutaminas e (tTG) IgA antibody assay (units/volume)Ordered By: Jose Shanks on 12-25-2022 tTG IgA Qn (S) <2 U/mL 0-3 [facility] Comment on above: Negative 0 - 3 Weak Positive 4 - 10 Positive >10 Tissue Transglutaminase (tTG) has been identified as the endomysial antigen. Studies have demonstr- ated that endomysial IgA antibodies have over 99% specificity for gluten sensitive enteropathy. Serum tissue transglutaminas e (tTG) IgG antibody assay (units/volume)Ordered By: Jose Shanks on 12-25-2022 tTG IgG Qn (S) <2 U/mL 0-5 [facility] Comment on above: Negative 0 - 5 Weak Positive 6 - 9 Positive >9 Thyrotropin [Units/volume] i n Serum or PlasmaOrdered By: Jose Shanks on 12-25-2022 TSH Qn 0.78 m[IU]/L 0.45-5.33 [facility] Thyroxine (T4) free [Mass/vo lume] in Serum or PlasmaOrdered By: Dayne Horton on 12-25-2022 Free T4 [Mass/Vol] 0.93 ng/dL 0.61-1.12 [facility] Transferrin [Mass/volume] in Serum or PlasmaOrdered By: Kelly Hough on 12-25-2022 Transferrin [Mass/Vol] 172 mg/dL 203-362 [facility] Triiodothyronine (T3) Free [ Mass/volume] in Serum or PlasmaOrdered By: Dayne Horton on 12-25-2022 Free T3 [Mass/Vol] 3.54 pg/mL 2.50-3.90 [facility] Vitamin D+Metabolites [Mass/ volume] in Serum or PlasmaOrdered By: Dayne Horton on 12-25-2022 Vitamin D+Metabolites [Mass/Vol] 27.0 ng/mL 30-100 [facility] Comment on above: VITAMIN D STATUS 25( OH)VITAMIN D RANGE (ng/mL) Deficient <20 Insufficient 20 to <30Sufficient 30 to 100Reference: Pam MF,Abelardo NC, Cj GARZA, et al. Evaluation,treatment, and prevention of vitamin D deficiency; an Endocrine Society clinical practice guideline. JCEM. 2010; 96(7):1911-30. WBC Auto (Bld) [#/Vol]Ordere d By: Kelly Hough on 12-25-2022 WBC (Bld) [#/Vol] 6.8 10*3/uL 3.8-11.6 [facility] AMYLASEon 12-07-2022 Amylase [Catalytic activity/Vol] 82 U/L Normal 25-115 Comment on above: Performed By: #### U MICRO, PREGU, ERUR #### [facility] [address] [address] [address] Adam Mejía CARDIAC REBECCA 3-6on 3 CK [Catalytic activity/Vol] 50 U/L Normal 26-192 Comment on above: Performed By: #### U MICRO, PREGU, ERUR #### [facility] [address] [address] [address] Adam Mejía CK.MB [Mass/Vol] ng/mL Normal <=3.60 Comment on above: Performed By: #### U MICRO, PREGU, ERUR #### [facility] [address] [address] [address] Adam Mejía HSTROP <4.0 Normal 4.0-51.3 Comment on above: Result Comment: CUT- OFF POINTS HAVE BEEN ESTABLISHED BASED ON THE FOURTH UNIVERSAL DEFINITIONS OF MYOCARDIAL INFARCTION. THE UPPER REFERENCE LIMIT (URL) OF TROPONIN, DEFINED THE 99TH PERCENTILE OF cTnI DISTRIBUTION IN A REFERENCE POPULATION, HAS BEEN CONFIRMED THE DECISION THRESHOLD FOR MA DIAGNOSIS. Performed By: #### U MICRO, PREGU, ERUR #### [facility] [address] [address] [address] Adam Mejía CARDIAC REBECCA ADMITon 023 CK [Catalytic activity/Vol] 60 U/L Normal 26-192 Comment on above: Performed By: #### U MICRO, PREGU, ERUR #### [facility] [address] [address] [address] Adam Mejía CK.MB [Mass/Vol] ng/mL Normal <=3.60 [facility] Comment on above: Performed By: #### U MICRO, PREGU, ERUR #### [facility] [address] [place] [address] Dr. Adam Mejía HSTROP <4.0 Normal 4.0-51.3 [facility] Comment on above: Result Comment: CUT- OFF POINTS HAVE BEEN ESTABLISHED BASED ON THE FOURTH UNIVERSAL DEFINITIONS OF MYOCARDIAL INFARCTION. THE UPPER REFERENCE LIMIT (URL) OF TROPONIN, DEFINED THE 99TH PERCENTILE OF cTnI DISTRIBUTION IN A REFERENCE POPULATION, HAS BEEN CONFIRMED THE DECISION THRESHOLD FOR MA DIAGNOSIS. Performed By: #### U MICRO, PREGU, ERUR #### [facility] [address] [place] [address] Dr. Adam Mejía OSMIN 17 ng/mL Normal 9-82 Comment on above: Performed By: #### U MICRO, PREGU, ERUR #### [facility] [address] [place] [address] Dr. Adam Mejía CBC AUTO DIFFon 12-07-2022 BASO # 0.0 103/ul Normal 0.0-0.1 Comment on above: Performed By: #### U MICRO PREGU, ERUR #### [facility] [address] [place] [address] Dr. Adam Mejía Basophils/100 WBC (Bld) 0.3 % Normal 0.2-2.0 Comment on above: Performed By: #### U MICRO, PREGU, ERUR #### [facility] [address] [place] [address] Dr. Adam Mejía EO # 0.2 103/ul Normal 0.0-0.7 [facility] Comment on above: Performed By: #### U MICRO, PREGU, ERUR #### [facility] [address] [place] [address] Dr. Adam Mejía Eosinophils/100 WBC (Bld) 2.5 % Normal 0.9-7.0 [facility] Comment on above: Performed By: #### U MICRO, PREGU, ERUR #### [facility] [address] [place] [address] Dr. Adam Mejía Erythrocyte distribution width (RBC) [Ratio] 15.2 % Critically high 11.0-15.0 Comment on above: Performed By: #### U MICRO, PREGU, ERUR #### [facility] [address] [place] [address] Dr. Adam Mejía Hematocrit (Bld) [Volume fraction] 34.8 % Critically low 36.0-48.0 Comment on above: Performed By: #### U MICRO, PREGU, ERUR #### [facility] [address] [place] [address] Dr. Adam Mejía Hemoglobin (Bld) [Mass/Vol] 10.6 g/dL Critically low 12.0-16.0 Comment on above: Performed By: #### U MICRO, PREGU, ERUR #### [facility] [address] [place] [address] Dr. Adam Mejía IG # 0.02 10e3/ul Normal 0.00-0.03 Comment on above: Performed By: #### U MICRO, PREGU, ERUR #### [facility] [address] [place] [address] Dr. Adam Mejía IG % 0.2 % Normal 0.0-0.5 Comment on above: Performed By: #### U MICRO, PREGU, ERUR #### [facility] [address] [place] [address] Dr. Adam Mejía LYMPH # 2.1 103/ul Normal 1.2-3.8 [facility] Comment on above: Performed By: #### U MICRO, PREGU, ERUR #### [facility] [address] [place] [address] Dr. Adam Mejía Lymphocytes/100 WBC (Bld) 23.0 % Normal 20.5-60.0 Comment on above: Performed By: #### U MICRO, PREGU, ERUR #### [facility] [address] [place] [address] Dr. Adam Mejía MANUAL DIFF REQ NO Normal [facility] Comment on above: Performed By: #### U MICRO, PREGU, ERUR #### [facility] [address] [place] [address] Dr. Adam Mejía MCH (RBC) [Entitic mass] 22.5 pg Critically low 26.7-34.0 Comment on above: Performed By: #### U MICRO, PREGU, ERUR #### [facility] [address] [place] [address] Dr. Adam Mejía MCHC (RBC) [Mass/Vol] 30.5 g/dL Normal 29.9-35.2 [facility] Comment on above: Performed By: #### U MICRO, PREGU, ERUR #### [facility] [address] [place] [address] Dr. Adam Mejía MCV (RBC) [Entitic vol] 73.9 fL Critically low 81.0-99.0 [facility] Comment on above: Performed By: #### U MICRO, PREGU, ERUR #### [facility] [address] [place] [address] Dr. Aadm Mejía MONO # 0.5 103/ul Normal 0.3-0.8 [facility] Comment on above: Performed By: #### U MICRO, PREGU, ERUR #### [facility] [address] [place] [address] Dr. Adam Mejía Monocytes/100 WBC (Bld) 5.8 % Normal 1.7-12.0 [facility] Comment on above: Performed By: #### U MICRO, PREGU, ERUR #### [facility] [address] [place] [address] Dr. Adam Mejía NEUT # 6.3 103/ul Normal 1.4-6.5 [facility] Comment on above: Performed By: #### U MICRO, PREGU, ERUR #### [facility] [address] [place] [address] Dr. Adam Mejía Neutrophils/100 WBC (Bld) 68.2 % Normal 43.0-75.0 [facility] Comment on above: Performed By: #### U MICRO, PREGU, ERUR #### [facility] [address] [address] [address] Adam Mejía Platelet mean volume (Bld) [Entitic vol] 11.8 fL Normal 9.5-13.5 Comment on above: Performed By: #### U MICRO, PREGU, ERUR #### [facility] [address] [address] [address] Adam Mejía PLT 250 103/ul Normal 150-450 [facility] Comment on above: Performed By: #### U MICRO, PREGU, ERUR #### [facility] [address] [place] [address] Dr. Adam Mejía RBC 4.71 106/ul Normal 4.20-5.40 Comment on above: Performed By: #### U MICRO, PREGU, ERUR #### [facility] [address] [place] [address] Dr. Adam Mejía WBC 9.2 103/ul Normal 4.0-11.0 Comment on above: Performed By: #### U MICRO, PREGU, ERUR #### [facility] [address] [place] [address] Dr. Adam Mejía ER URINE PROFILEon 3 Bilirubin Ql (U) Negative Normal NEGATIVE Comment on above: Performed By: #### U MICRO, PREGU, ERUR #### [facility] [address] [place] [address] Dr. Adam Mejía Clarity (U) CLEAR Normal CLEAR [facility] Comment on above: Performed By: #### U MICRO, PREGU, ERUR #### [facility] [address] [place] [address] Dr. Adam Mejía Color (U) LT. YELLOW Normal YELLOW [facility] Comment on above: Performed By: #### U MICRO, PREGU, ERUR #### [facility] [address] [place] [address] Dr. Adam Mejía ERUAHD A micrscopic examina tion will be performed if indicated. Normal [facility] Comment on above: Performed By: #### U MICRO, PREGU, ERUR #### [facility] [address] [address] [address] Adam Mejía Glucose Ql (U) Negative Normal NEGATIVE [facility] Comment on above: Performed By: #### U MICRO, PREGU, ERUR #### [facility] [address] [address] [address] Adam Mejía Hemoglobin Ql (U) SMALL Abnormal NEGATIVE [facility] Comment on above: Performed By: #### U MICRO, PREGU, ERUR #### [facility] [address] [address] [address] Adam Mejía Ketones Ql (U) Negative Normal NEGATIVE [facility] Comment on above: Performed By: #### U MICRO, PREGU, ERUR #### [facility] [address] [place] [address] Dr. Adam Mejía LEUKOCYTES Negative Normal NEGATIVE Comment on above: Performed By: #### U MICRO, PREGU, ERUR #### [facility] [address] [place] [address] Dr. Adam Mejía Nitrite Ql (U) Negative Normal NEGATIVE Comment on above: Performed By: #### U MICRO, PREGU, ERUR #### [facility] [address] [place] [address] Dr. Adam Mejía pH (U) 8.0 [pH] Normal 5-9 [facility] Comment on above: Performed By: #### U MICRO, PREGU, ERUR #### [facility] [address] [address] [address] Adam Mejía SPEC GRAVITY 1.010 Normal 1.005-<=1. 025 [facility] Comment on above: Performed By: #### U MICRO, PREGU, ERUR #### [facility] [address] [place] [address] Dr. Adam Mejía UA PROTEIN Negative Normal NEGATIVE/ TRACE [facility] Comment on above: Performed By: #### U MICRO, PREGU, ERUR #### [facility] [address] [place] [address] Dr. Adam Mejía UR MICRO IND INDICATED Normal [facility] Comment on above: Performed By: #### U MICRO, PREGU, ERUR #### [facility] [address] [place] [address] Dr. Adam Mejía Urobilinogen Qn (U) 1.0 {Brinda'U}/dL Normal 0.2 - 1. 0 [facility] Comment on above: Performed By: #### U MICRO, PREGU, ERUR #### [facility] [address] [place] [address] Dr. Adam Mejía LACTATE/LACTIC ACIDon 2022 Lactate [Moles/Vol] 0.5 mmol/L Normal 0.4-2.0 [facility] Comment on above: Performed By: #### U MICRO, PREGU, ERUR #### [facility] [address] [place] [address] Dr. Adam Mejía LIPASEon 12-07-2022 Lipase [Catalytic activity/Vol] 219.0 U/L Normal 73.0-393.0 Comment on above: Performed By: #### U MICRO, PREGU, ERUR #### [facility] [address] [place] [address] Dr. Adam Mejía LIVER PROFILEon 12-07-2022 Albumin [Mass/Vol] 3.7 g/dL Normal 3.4-5.0 Comment on above: Performed By: #### U MICRO, PREGU, ERUR #### [facility] [address] [place] [address] Dr. Adam Mejía Albumin/Globulin [Mass ratio] 1.1 {ratio} Normal [facility] Comment on above: Performed By: #### U MICRO, PREGU, ERUR #### [facility] [address] [place] [address] Dr. Adam Mejía ALP [Catalytic activity/Vol] 57 U/L Normal 46-116 [facility] Comment on above: Performed By: #### U MICRO, PREGU, ERUR #### [facility] [address] [place] [address] Dr. Adam Mejía ALT [Catalytic activity/Vol] 15 U/L Normal 14-59 Comment on above: Performed By: #### U MICRO, PREGU, ERUR #### [facility] [address] [address] [address] Adam Mejía AST [Catalytic activity/Vol] 13 U/L Critically low 15-37 Comment on above: Performed By: #### U MICRO, PREGU, ERUR #### [facility] [address] [address] [address] Adam Mejía BILI, CONJUGATED 0.2 mg/dL Normal 0.0-0.2 Comment on above: Performed By: #### U MICRO, PREGU, ERUR #### [facility] [address] [place] [address] Dr. Adam Mejía Bilirubin [Mass/Vol] 0.2 mg/dL Normal 0.2-1.0 Comment on above: Performed By: #### U MICRO, PREGU, ERUR #### [facility] [address] [place] [address] Dr. Adam Mejía Globulin (S) [Mass/Vol] 3.4 g/dL Normal Comment on above: Performed By: #### U MICRO, PREGU, ERUR #### [facility] [address] [place] [address] Dr. Adam Mejía Protein [Mass/Vol] 7.1 g/dL Normal 6.4-8.2 Comment on above: Performed By: #### U MICRO, PREGU, ERUR #### [facility] [address] [place] [address] Dr. Adam Mejía PROF CHEM 8 (BAS METB)on Anion gap [Moles/Vol] 12.0 mmol/L Normal [facility] Comment on above: Performed By: #### U MICRO, PREGU, ERUR #### [facility] [address] [place] [address] Dr. Adam Mejía Calcium [Mass/Vol] 8.8 mg/dL Normal 8.5-10.1 [facility] Comment on above: Performed By: #### U MICRO, PREGU, ERUR #### [facility] [address] [address] [address] Adam Mejía Chloride [Moles/Vol] 102 mmol/L Normal 98-107 [facility] Comment on above: Performed By: #### U MICRO, PREGU, ERUR #### [facility] [address] [address] [address] Adam Mejía CO2 [Moles/Vol] 26.9 mmol/L Normal 21.0-32.0 [facility] Comment on above: Performed By: #### U MICRO, PREGU, ERUR #### [facility] [address] [address] [address] Adam Mejía Creatinine [Mass/Vol] 0.75 mg/dL Normal 0.55-1.02 [facility] Comment on above: Performed By: #### U MICRO, PREGU, ERUR #### [facility] [address] [address] [address] Adam Mejía EGFR-AF SAMMARINESE >60 Normal >=60 [facility] Comment on above: Performed By: #### U MICRO, PREGU, ERUR #### [facility] [address] [address] [address] Adam Mejía EGFR-NON AF SAMMARINESE >60 Normal >=60 [facility] Comment on above: Performed By: #### U MICRO, PREGU, ERUR #### [facility] [address] [address] [address] Adam Mejía Glucose [Mass/Vol] 97 mg/dL Normal 74-106 [facility] Comment on above: Performed By: #### U MICRO, PREGU, ERUR #### [facility] [address] [place] [address] Dr. Adam Mejía Potassium [Moles/Vol] 3.9 mmol/L Normal 3.5-5.1 [facility] Comment on above: Performed By: #### U MICRO, PREGU, ERUR #### [facility] [address] [address] [address] Adam Mejía Sodium [Moles/Vol] 137 mmol/L Normal 136-145 [facility] Comment on above: Performed By: #### U MICRO, PREGU, ERUR #### [facility] [address] [place] [address] Dr. Adam Mejía Urea nitrogen [Mass/Vol] 13.0 mg/dL Normal 7.0-18.0 Comment on above: Performed By: #### U MICRO, PREGU, ERUR #### [facility] [address] [place] [address] Dr. Adam Mejía Urea nitrogen/Creatinine [Mass ratio] 17.3 mg/mg Normal [facility] Comment on above: Performed By: #### U MICRO, PREGU, ERUR #### [facility] [address] [place] [address] Dr. Adam Mejía URINE MICROSCOPIC ONLYon BACTERIA NONE SEEN Normal NONE SEEN Comment on above: Performed By: #### U MICRO, PREGU, ERUR #### [facility] [address] [place] [address] Dr. Adam Mejía Bacteria identified Cx Nom (U) NOT INDICATED Normal [facility] Comment on above: Performed By: #### U MICRO, PREGU, ERUR #### [facility] [address] [place] [address] Dr. Adam Mejía CAST NONE SEEN Normal NONE SEEN [facility] Comment on above: Performed By: #### U MICRO, PREGU, ERUR #### [facility] [address] [place] [address] Dr. Adam Mejía Crystals LM Nom (Urine sed) NONE SEEN Normal NONE SEEN [facility] Comment on above: Performed By: #### U MICRO, PREGU, ERUR #### [facility] [address] [place] [address] Dr. Adam Mejía Epithelial cells LM Ql (Urine sed) RARE Normal NONE SEEN /RARE [facility] Comment on above: Performed By: #### U MICRO, PREGU, ERUR #### [facility] [address] [place] [address] Dr. Adam Mejía MUCOUS NONE SEEN Normal NONE SEEN Comment on above: Performed By: #### U MICRO, PREGU, ERUR #### [facility] [address] [address] [address] Adam Mejía RBC 2-5 Abnormal 0-2 Comment on above: Performed By: #### U MICRO, PREGU, ERUR #### [facility] [address] [address] [address] Adam Mejía WBC NONE SEEN Normal NONE SEEN Comment on above: Performed By: #### U MICRO, PREGU, ERUR #### [facility] [address] [address] [address] Adam Mejía XR ABD FLAT UP_PA [...] by: LENI ANGEL Date: 2022-12-07 00:23 Normal [facility] US PELVIS TRANSVAGon 023 US PELVIS TRANSVAG [...] by: KALPESH FOWLER Date: 2022-11-29 11:27 Normal No Panel InformationOrdered By: Dayne Horton on 10-12-2022 25-Hydroxy Vitamin D Total 10.4 ng/mL 30-100 [facility] Comment on above: VITAMIN D STATUS 25( OH)VITAMIN D RANGE (ng/mL) Deficient <20 Insufficient 20 to <30Sufficient 30 to 100Reference: Pam MF,Abelardo NC, Cj GARZA, et al. Evaluation,treatment, and prevention of vitamin D deficiency; an Endocrine Society clinical practice guideline. JCEM. 2010; 96(7):1911-30. Serum or plasma thyroglobuli n antibody assay (units/volume)Ordered By: Dayne Horton on 10-12-2022 Thyroglobulin Ab Qn [IU]/mL 0.0-0.[address] [facility] Comment on above: Thyroglobulin Antibo dy measured by LightTableMethodologyPerformed at: CB - [facility] [address] [id number] Director: Alan Macias PhD, Phone: [phone] Serum or plasma thyroperoxid ase antibody assay (units/volume)Ordered By: Dayne Horton on 10-12-2022 TPO Ab Qn 11 [IU]/mL 0-34 [facility] Serum thyrotropin receptor a ntibody assay (units/volume)Ordered By: Dayne Horton on 10-12-2022 TSH receptor Ab Qn (S) <1.10 IU/L 0.00-1.75 [facility] Comment on above: Performed at: [address] [id number] Director: Artemio Guillen MD, Phone: [phone] TSH DL <= 0.005 mIU/L QnOrde red By: Dayne Horton on 10-12-2022 TSH Qn 0.06 m[IU]/L 0.45-5.33 [facility] Thyroxine (T4) free [Mass/vo lume] in Serum or PlasmaOrdered By: Dayne Horton on 10-12-2022 Free T4 [Mass/Vol] 1.02 ng/dL 0.61-1.12 [facility] Triiodothyronine (T3) Free [ Mass/volume] in Serum or PlasmaOrdered By: Dayne Horton on 10-12-2022 Free T3 [Mass/Vol] 3.90 pg/mL 2.50-3.90 [facility] Basophils Auto (Bld) [#/Vol] Ordered By: Kelly Hough on 10-03-2022 Basophils (Bld) [#/Vol] 0.0 10*3/uL 0.0-0.2 [facility] Basophils/100 WBC Auto (Bld) Ordered By: Kelly Hough on 10-03-2022 Basophils/100 WBC (Bld) 0.7 % . [facility] CT biopsyOrdered By: Kelly Ramos on 10-03-2022 Transferrin [Mass/Vol] 230 mg/dL 180-380 [facility] Eosinophils Auto (Bld) [#/Vo l]Ordered By: Kelly Hough on 10-03-2022 Eosinophils (Bld) [#/Vol] 0.1 10*3/uL 0.0-0.45 [facility] Eosinophils/100 WBC Auto (Bl d)Ordered By: Kelly Hough on 10-03-2022 Eosinophils/100 WBC (Bld) 2.4 % . [facility] Erythrocyte distribution wid th Auto (RBC) [Ratio]Ordered By: Kelly Hough on 10-03-2022 Erythrocyte distribution width (RBC) [Ratio] 15.2 % 11.9-15.3 [facility] Ferritin [Mass/volume] in Se rum or PlasmaOrdered By: Kelly Hough on 10-03-2022 Ferritin [Mass/Vol] 7.7 ng/mL 11-306.[address] [facility] Hematocrit Auto (Bld) [Volum e fraction]Ordered By: Kelly Hough on 10-03-2022 Hematocrit (Bld) [Volume fraction] 31.2 % 34.0-46.4 [facility] Hemoglobin [Mass/volume] in BloodOrdered By: Kelly Hough on 10-03-2022 Hemoglobin (Bld) [Mass/Vol] 9.7 g/dL 11.8-15.4 [facility] Iron [Mass/volume] in Serum or PlasmaOrdered By: Kelly Hough on 10-03-2022 Iron [Mass/Vol] 96 ug/dL 40-150 [facility] Iron binding capacity [Mass/ volume] in Serum or PlasmaOrdered By: Kelly Hough on 10-03-2022 Iron binding capacity [Mass/Vol] 322 ug/dL 255-450 [facility] Iron saturation [Mass Fracti on] in Serum or PlasmaOrdered By: Kelly Hough on 10-03-2022 Iron saturation [Mass fraction] 29.8 % 20-50 [facility] Leukocytes [#/volume] correc delmer for nucleated erythrocytes in Blood by Automated counOrdered By: Kelly Hough on 10-03-2022 WBC corrected for nucl RBC Auto (Bld) [#/Vol] 5.6 10*3/uL 3.8-11.6 [facility] Lymphocytes Auto (Bld) [#/Vo l]Ordered By: Kelly Hough on 10-03-2022 Lymphocytes (Bld) [#/Vol] 1.7 10*3/uL 1.00-4.8 [facility] Lymphocytes/100 WBC Auto (Bl d)Ordered By: Kelly Hough on 10-03-2022 Lymphocytes/100 WBC (Bld) 30.9 % . [facility] MCH Auto (RBC) [Entitic mass ]Ordered By: Kelly Hough on 10-03-2022 MCH (RBC) [Entitic mass] 21.8 pg 24.7-34.3 [facility] MCHC Auto (RBC) [Mass/Vol]Or dered By: Kelly Hough on 10-03-2022 MCHC (RBC) [Mass/Vol] 31.2 g/dL 32.0-35.0 [facility] MCV Auto (RBC) [Entitic vol] Ordered By: Kelly Hough on 10-03-2022 MCV (RBC) [Entitic vol] 70.0 fL 80-100 [facility] Monocytes Auto (Bld) [#/Vol] Ordered By: Kelly Hough on 10-03-2022 Monocytes (Bld) [#/Vol] 0.4 10*3/uL 0.0-0.8 [facility] Monocytes/100 WBC Auto (Bld) Ordered By: Kelly Hough on 10-03-2022 Monocytes/100 WBC (Bld) 6.3 % . [facility] Neutrophils Auto (Bld) [#/Vo l]Ordered By: Kelly Hough on 10-03-2022 Neutrophils (Bld) [#/Vol] 3.4 10*3/uL 1.8-7.7 [facility] Neutrophils/100 WBC Auto (Bl d)Ordered By: Kelly Hough on 10-03-2022 Neutrophils/100 WBC (Bld) 59.7 % . [facility] Nucleated erythrocytes [Pres ence] in Blood by Automated countOrdered By: Kelly Hough on 10-03-2022 Nucleated RBC Auto Ql (Bld) 0.1 /100{WBC} 0-0.5 [facility] Platelet mean volume Auto (B ld) [Entitic vol]Ordered By: Kelly Hough on 10-03-2022 Platelet mean volume (Bld) [Entitic vol] 9.4 fL 6.3-10.7 [facility] Platelets Auto (Bld) [#/Vol] Ordered By: Kelly Hough on 10-03-2022 Platelets (Bld) [#/Vol] 226 10*3/uL 150-450 [facility] RBC Auto (Bld) [#/Vol]Ordere d By: Kelly Ryanboske on 10-03-2022 RBC (Bld) [#/Vol] 4.46 10*6/uL 3.60-5.[address] [facility] WBC Auto (Bld) [#/Vol]Ordere d By: Kelly France on 10-03-2022 WBC (Bld) [#/Vol] 5.6 10*3/uL 3.8-11.6 [facility] Free thyroxine indexOrdered By: Yudelka Lopez on 10-02-2022 Free T4 index Calc [Mass/Vol] 2.8 1.2-4.9 [facility] No Panel InformationOrdered By: Yudelka Lopez on 10-02-2022 Free Thyroxine (T4) Direct 8.6 ug/dL 4.5-12.0 [facility] TSH DL <= 0.005 mIU/L QnOrde red By: Yudelka Lopez on 10-02-2022 TSH Qn 0.037 m[IU]/L 0.450-4.[address] [facility] Triiodothyronine (T3) [Mass/ volume] in Serum or PlasmaOrdered By: Yudelka Lopez on 10-02-2022 T3 [Mass/Vol] 135 ng/dL 71-180 [facility] Comment on above: Performed at: [place] [id number] Director: Alan Macias PhD, Phone: [phone] Triiodothyronine (T3) resin uptake testOrdered By: Yudelka Lopez on 10-02-2022 T3RU 33 % 24-39 [facility] Activated partial thrombopla stin time (aPTT) in platelet poor plasma by coagulation aOrdered By: Jim Vega on 09-21-2022 aPTT Coag (PPP) [Time] 30.8 s 25.1-36.5 [facility] Albumin [Mass/volume] in Ser um or PlasmaOrdered By: Jim Vega on 09-21-2022 Albumin [Mass/Vol] 3.7 g/dL 3.2-5.5 [facility] Automated erythrocytes count in urine sediment (number/area)Ordered By: Jim Vega on 09-21-2022 RBC Auto (Urine sed) [#/Area] 1-2 [HPF] 0-4 [facility] Automated leukocytes count i n urine sediment (number/area)Ordered By: Jim Vega on 09-21-2022 WBC Auto (Urine sed) [#/Area] 0-1 [HPF] 0-4 [facility] Basophils Auto (Bld) [#/Vol] Ordered By: Jim Vega on 09-21-2022 Basophils (Bld) [#/Vol] 0.0 10*3/uL 0.0-0.2 [facility] Basophils/100 WBC Auto (Bld) Ordered By: Jim Vega on 09-21-2022 Basophils/100 WBC (Bld) 0.5 % . [facility] Bilirubin Test strip Ql (U)O rdered By: Jim Vega on 09-21-2022 Bilirubin Ql (U) Negative Negative [facility] COVID CepheidOrdered By: Rahat Vega on 09-21-2022 SARS-CoV-2 (COVID-19) Ab IA Ql Negative Negative [facility] Comment on above: This is a duplicate [employer] Xpert Xpress CoV-2/Flu/RSV Plus RNA by RT-PCR result to be used for statistical tracking purpose only. SARS-CoV-2 (COVID-19) RNA HIRAM+probe Ql (Unsp spec) [facility] SARS-CoV-2 (COVID-19) RNA HIRAM+probe Ql (Unsp spec) [facility] Color Auto (U)Ordered By: Narinder Vega on 09-21-2022 Color (U) Yellow Yellow [facility] Creatinine and Glomerular fi ltration rate.predicted panel (S/P/Bld)Ordered By: Jim Vega on 09-21-2022 Creatinine [Mass/Vol] 0.79 mg/dL 0.44-1.03 [facility] Eosinophils Auto (Bld) [#/Vo l]Ordered By: Jim Vega on 09-21-2022 Eosinophils (Bld) [#/Vol] 0.1 10*3/uL 0.0-0.45 [facility] Eosinophils/100 WBC Auto (Bl d)Ordered By: Jim Vega on 09-21-2022 Eosinophils/100 WBC (Bld) 2.7 % . [facility] Erythrocyte distribution wid th Auto (RBC) [Ratio]Ordered By: Jim Vega on 09-21-2022 Erythrocyte distribution width (RBC) [Ratio] 15.6 % 11.9-15.3 [facility] Estimated glomerular filtrat ion rate (GFR) non- AmericanOrdered By: Jim Vega on 09-21-2022 GFR/1.73 sq M.predicted among non-blacks MDRD (S/P/Bld) [Vol rate/Area] > 60 mL/Min [facility] Globulin Calc (S) [Mass/Vol] Ordered By: Jim Vega on 09-21-2022 Globulin (S) [Mass/Vol] 3.3 g/dL [facility] HCG ( test) IA.rapi d Ql (U)Ordered By: Jim Vega on 09-21-2022 HCG ( test) Ql (U) Negative [facility] Hematocrit Auto (Bld) [Volum e fraction]Ordered By: Jim Vega on 09-21-2022 Hematocrit (Bld) [Volume fraction] 31.9 % 34.0-46.4 [facility] Hemoglobin [Mass/volume] in BloodOrdered By: Jim Vega on 09-21-2022 Hemoglobin (Bld) [Mass/Vol] 9.9 g/dL 11.8-15.4 [facility] Ketones Auto test strip (U) [Mass/Vol]Ordered By: Jim Vega on 09-21-2022 Ketones (U) [Mass/Vol] Negative [facility] - CoagulationOrde red By: Jim Vega on 09-21-2022 PT Coag (PPP) [Time] 13.3 s 9.0-12.9 [facility] - UrinalysisOrder ed By: Jim Vega on 09-21-2022 Hyaline casts LM Ql (Urine sed) None seen [LPF] 0-8 [facility] Leukocytes [#/volume] correc delmer for nucleated erythrocytes in Blood by Automated counOrdered By: Jim Vega on 09-21-2022 WBC corrected for nucl RBC Auto (Bld) [#/Vol] 5.4 10*3/uL 3.8-11.6 [facility] Lymphocytes Auto (Bld) [#/Vo l]Ordered By: Jim Vega on 09-21-2022 Lymphocytes (Bld) [#/Vol] 1.4 10*3/uL 1.00-4.8 [facility] Lymphocytes/100 WBC Auto (Bl d)Ordered By: Jim Vega on 09-21-2022 Lymphocytes/100 WBC (Bld) 26.1 % . [facility] MCH Auto (RBC) [Entitic mass ]Ordered By: Jim Vega on 09-21-2022 MCH (RBC) [Entitic mass] 21.7 pg 24.7-34.3 [facility] MCHC Auto (RBC) [Mass/Vol]Or dered By: Jim Vega on 09-21-2022 MCHC (RBC) [Mass/Vol] 31.0 g/dL 32.0-35.0 [facility] MCV Auto (RBC) [Entitic vol] Ordered By: Jim Vega on 09-21-2022 MCV (RBC) [Entitic vol] 70.1 fL 80-100 [facility] Monocyte distribution width [Entitic volume] in Blood by AutomatedOrdered By: Jim Vega on 09-21-2022 Monocyte distribution width Auto (Bld) [Entitic vol] 15.00 % 0.00-20.00 [facility] Monocytes Auto (Bld) [#/Vol] Ordered By: Jim Vega on 09-21-2022 Monocytes (Bld) [#/Vol] 0.4 10*3/uL 0.0-0.8 [facility] Monocytes/100 WBC Auto (Bld) Ordered By: Jim Vega on 09-21-2022 Monocytes/100 WBC (Bld) 6.9 % . [facility] Neutrophils Auto (Bld) [#/Vo l]Ordered By: Jim Vega on 09-21-2022 Neutrophils (Bld) [#/Vol] 3.4 10*3/uL 1.8-7.7 [facility] Neutrophils/100 WBC Auto (Bl d)Ordered By: Jim Vega on 09-21-2022 Neutrophils/100 WBC (Bld) 63.8 % . [facility] Nitrite Test strip Ql (U)Ord ered By: Jim Vega on 09-21-2022 Nitrite Ql (U) Negative Negative [facility] No Panel InformationOrdered By: Jim Vega on 09-21-2022 D-Dimer Quantitative (PE/DVT) 205 ng/mL 0-243 [facility] Comment on above: The reference range [...] conditions. Estimated GFR () > 60 mL/Min [facility] Comment on above: GFR estimated refere nce range: According to KDOQI guidelines, <60 ml/min/1.73m2 is sufficient to diagnose a patient with chronic kidney disease. Pharmacy Creatinine Clearance (Chem 96.49 [facility] Nucleated erythrocytes [Pres ence] in Blood by Automated countOrdered By: Jim Vega on 09-21-2022 Nucleated RBC Auto Ql (Bld) 0.4 /100{WBC} 0-0.5 [facility] Platelet mean volume Auto (B ld) [Entitic vol]Ordered By: Jim Vega on 09-21-2022 Platelet mean volume (Bld) [Entitic vol] 10.0 fL 6.3-10.7 [facility] Platelet poor plasma interna tional normalized ratio (INR) by coagulation assay (relatOrdered By: Jim Vega on 09-21-2022 INR Coag (PPP) [Relative time] 1.2 {INR} [facility] Comment on above: INR Therapeutic Rang [...] [#/Vol] Ordered By: Jim Vega on 09-21-2022 Platelets (Bld) [#/Vol] 215 10*3/uL 150-450 [facility] Protein Auto test strip (U) [Mass/Vol]Ordered By: Jim Vega on 09-21-2022 Protein (U) [Mass/Vol] Negative Negative [facility] Protein [Mass/volume] in Ser um or PlasmaOrdered By: Jim Vega on 09-21-2022 Protein [Mass/Vol] 7.0 g/dL 6.1-7.9 [facility] RBC Auto (Bld) [#/Vol]Ordere d By: Jim Vega on 09-21-2022 RBC (Bld) [#/Vol] 4.54 10*6/uL 3.60-5.[address] [facility] Serum or plasma alanine keene otransferase measurement without P-5'-P (enzymatic activiOrdered By: Jim Vega on 09-21-2022 ALT No additional P-5'-P [Catalytic activity/Vol] 11 U/L 10-60 [facility] Serum or plasma albumin/glob ulin mass ratioOrdered By: Jim Vega on 09-21-2022 Albumin/Globulin [Mass ratio] 1.1 {ratio} [facility] Serum or plasma alkaline jared sphatase measurement (enzymatic activity/volume)Ordered By: Jim Vega on 09-21-2022 ALP [Catalytic activity/Vol] 47 U/L 32-92 [facility] Serum or plasma anion gap de terminationOrdered By: Jim Vega on 09-21-2022 Anion gap [Moles/Vol] 10.0 mmol/L 6.0-15.0 [facility] Serum or plasma aspartate am inotransferase measurement (enzymatic activity/volume)Ordered By: Jim Vega on 09-21-2022 AST [Catalytic activity/Vol] 13 U/L 10-42 [facility] Serum or plasma calcium marychuy urement (mass/volume)Ordered By: Jim Vega on 09-21-2022 Calcium [Mass/Vol] 8.9 mg/dL 8.2-10.2 [facility] Serum or plasma chloride nemo surement (moles/volume)Ordered By: Jim Vega on 09-21-2022 Chloride [Moles/Vol] 105 mmol/L 95-114 [facility] Serum or plasma glucose marychuy urement (mass/volume)Ordered By: Jim Vega on 09-21-2022 Glucose [Mass/Vol] 114 mg/dL 70-100 [facility] Comment on above: ADA recommended refe rence rangeRandom Glucose Reference Range is dependent on time and content of last meal. Glucose of more than 200 mg/dL in a nonstressed, ambulatory subject supports the diagnosis of Diabetes Mellitus. Serum or plasma potassium me asurement (moles/volume)Ordered By: Jim Vega on 09-21-2022 Potassium [Moles/Vol] 3.5 mmol/L 3.5-5.1 [facility] Serum or plasma sodium measu rement (moles/volume)Ordered By: Jim Vega on 09-21-2022 Sodium [Moles/Vol] 134 mmol/L 136-146 [facility] Serum or plasma total biliru bin measurement (mass/volume)Ordered By: Jim Vega on 09-21-2022 Bilirubin [Mass/Vol] 0.5 mg/dL 0.3-1.2 [facility] Serum or plasma total carbon dioxide measurement (moles/volume)Ordered By: Jim Vega on 09-21-2022 CO2 [Moles/Vol] 22.5 mmol/L 22.0-30.0 [facility] Serum or plasma urea nitroge n measurement (mass/volume)Ordered By: Jim Vega on 09-21-2022 Urea nitrogen [Mass/Vol] 5 mg/dL - [facility] Specific gravity Auto test s trip (U) [Rel density]Ordered By: Jim Vega on 09-21-2022 Specific gravity (U) [Rel density] 1.004 1.001-1.[address] [facility] Squamous epithelial cells de tection in urine sediment by light microscopyOrdered By: Jim Vega on 09-21-2022 Epithelial cells.squamous LM Ql (Urine sed) 0-1 [HPF] 0-2 [facility] TSH DL <= 0.005 mIU/L QnOrde red By: Jim Vega on 09-21-2022 TSH Qn 0.14 m[IU]/L 0.45-5.33 [facility] Thyroxine (T4) free [Mass/vo lume] in Serum or PlasmaOrdered By: Jim Vega on 09-21-2022 Free T4 [Mass/Vol] 1.30 ng/dL 0.61-1.12 [facility] Troponin I.cardiac [Mass/vol ume] in Serum or Plasma by High sensitivity methodOrdered By: Jim Vega on 09-21-2022 Troponin I.cardiac High sensitivity method [Mass/Vol] < 3 pg/mL 0-15 [facility] Urine bacteria detection by automated methodOrdered By: Jim Vega on 09-21-2022 Bacteria Auto Ql (U) None seen None Seen [facility] Urine clarity by refractomet ry automatedOrdered By: Jim Vega on 09-21-2022 Clarity Refractometry automated (U) Clear Clear [facility] Urine glucose measurement by automated test strip (mass/volume)Ordered By: Jim Vega on 09-21-2022 Glucose Auto test strip (U) [Mass/Vol] Normal mg/dL Normal [facility] Urine hemoglobin detection b y automated test stripOrdered By: Jim Vega on 09-21-2022 Hemoglobin Auto test strip Ql (U) Trace Negative [facility] Urine leukocyte esterase det ection by automated test stripOrdered By: Jim Vega on 09-21-2022 Leukocyte esterase Auto test strip Ql (U) Negative Negative [facility] Urobilinogen Auto test strip (U) [Mass/Vol]Ordered By: Jim Vega on 09-21-2022 Urobilinogen (U) [Mass/Vol] Normal mg/dL Normal [facility] WBC Auto (Bld) [#/Vol]Ordere d By: Jim Vega on 09-21-2022 WBC (Bld) [#/Vol] 5.4 10*3/uL 3.8-11.6 [facility] pH Auto test strip (U)Ordere d By: Jim Silvia on 09-21-2022 pH (U) 7.0 [pH] 5.0-9.0 [facility] Anisocytosis LM Ql (Bld)Orde red By: Tejinder Pearza on 09-15-2022 Anisocytosis Ql (Bld) Slight [facility] Basophils Auto (Bld) [#/Vol] Ordered By: Tejinder Peraza on 09-15-2022 Basophils (Bld) [#/Vol] 0.0 10*3/uL 0.0-0.2 [facility] Basophils/100 WBC Auto (Bld) Ordered By: Tejinder Peraza on 09-15-2022 Basophils/100 WBC (Bld) 0.3 % . [facility] Eosinophils Auto (Bld) [#/Vo l]Ordered By: Tejinder Peraza on 09-15-2022 Eosinophils (Bld) [#/Vol] 0.1 10*3/uL 0.0-0.45 [facility] Eosinophils/100 WBC Auto (Bl d)Ordered By: Tejinder Peraza on 09-15-2022 Eosinophils/100 WBC (Bld) 1.2 % . [facility] Erythrocyte distribution wid th Auto (RBC) [Ratio]Ordered By: Tejinder Peraza on 09-15-2022 Erythrocyte distribution width (RBC) [Ratio] 15.2 % 11.9-15.3 [facility] Hematocrit Auto (Bld) [Volum e fraction]Ordered By: Tejinder Peraza on 09-15-2022 Hematocrit (Bld) [Volume fraction] 30.9 % 34.0-46.4 [facility] Hemoglobin [Mass/volume] in BloodOrdered By: Tejinder Peraza on 09-15-2022 Hemoglobin (Bld) [Mass/Vol] 9.6 g/dL 11.8-15.4 [facility] Hypochromia LM Ql (Bld)Order ed By: Tejinder Peraza on 09-15-2022 Hypochromia Ql (Bld) Slight [facility] Leukocytes [#/volume] correc delmer for nucleated erythrocytes in Blood by Automated counOrdered By: Tejinder Peraza on 09-15-2022 WBC corrected for nucl RBC Auto (Bld) [#/Vol] 7.5 10*3/uL 3.8-11.6 [facility] Lymphocytes Auto (Bld) [#/Vo l]Ordered By: Tejinder Peraza on 09-15-2022 Lymphocytes (Bld) [#/Vol] 1.7 10*3/uL 1.00-4.8 [facility] Lymphocytes/100 WBC Auto (Bl d)Ordered By: Tejinder Peraza on 09-15-2022 Lymphocytes/100 WBC (Bld) 22.2 % . [facility] MCH Auto (RBC) [Entitic mass ]Ordered By: Tejinder Peraza on 09-15-2022 MCH (RBC) [Entitic mass] 21.8 pg 24.7-34.3 [facility] MCHC Auto (RBC) [Mass/Vol]Or dered By: Tejinder Peraza on 09-15-2022 MCHC (RBC) [Mass/Vol] 31.1 g/dL 32.0-35.0 [facility] MCV Auto (RBC) [Entitic vol] Ordered By: Tejinder Peraza on 09-15-2022 MCV (RBC) [Entitic vol] 70.0 fL 80-100 [facility] Microcytes LM Ql (Bld)Ordere d By: Tejinder Peraza on 09-15-2022 Microcytes Ql (Bld) Slight [facility] Monocytes Auto (Bld) [#/Vol] Ordered By: Tejinder Peraza on 09-15-2022 Monocytes (Bld) [#/Vol] 0.4 10*3/uL 0.0-0.8 [facility] Monocytes/100 WBC Auto (Bld) Ordered By: Tejinder Peraza on 09-15-2022 Monocytes/100 WBC (Bld) 5.3 % . [facility] Neutrophils Auto (Bld) [#/Vo l]Ordered By: Tejinder Peraza on 09-15-2022 Neutrophils (Bld) [#/Vol] 5.3 10*3/uL 1.8-7.7 [facility] Neutrophils/100 WBC Auto (Bl d)Ordered By: Tejinder Peraza on 09-15-2022 Neutrophils/100 WBC (Bld) 71.0 % . [facility] No Panel InformationOrdered By: Tejinder Peraza on 09-15-2022 D-Dimer Quantitative (PE/DVT) 245 ng/mL 0-243 [facility] Comment on above: The reference range [...] ence] in Blood by Automated countOrdered By: Tejinder Peraza on 09-15-2022 Nucleated RBC Auto Ql (Bld) 0.1 /100{WBC} 0-0.5 [facility] Ovalocyte detectionOrdered B y: Tejinder Peraza on 09-15-2022 Ovalocytes LM Ql (Bld) [facility] Platelet adequacy [Presence] in Blood by Light microscopyOrdered By: Tejinder Peraza on 09-15-2022 Platelets LM Ql (Bld) Normal Normal Fir [facility] Platelet mean volume Auto (B ld) [Entitic vol]Ordered By: Tejinder Peraza on 09-15-2022 Platelet mean volume (Bld) [Entitic vol] 9.8 fL 6.3-10.7 [facility] Platelet morphology finding [Identifier] in BloodOrdered By: Tejinder Peraza on 09-15-2022 Platelet morphology finding Nom (Bld) Normal Normal [facility] Platelets Auto (Bld) [#/Vol] Ordered By: Tejinder Peraza on 09-15-2022 Platelets (Bld) [#/Vol] 212 10*3/uL 150-450 [facility] Poikilocytosis [Presence] in Blood by Light microscopyOrdered By: Kip Soviak on 09-15-2022 Poikilocytosis LM Ql (Bld) Slight [facility] Polychromasia [Presence] in Blood by Light microscopyOrdered By: Kip Soviak on 09-15-2022 Polychromasia LM Ql (Bld) Slight [facility] RBC Auto (Bld) [#/Vol]Ordere d By: Kip Soviak on 09-15-2022 RBC (Bld) [#/Vol] 4.42 10*6/uL 3.60-5.[address] [facility] RBC morphologyOrdered By: Ki p Soviak on 09-15-2022 RBC morphology finding Nom (Bld) N/A [facility] WBC Auto (Bld) [#/Vol]Ordere d By: Kip Soviak on 09-15-2022 WBC (Bld) [#/Vol] 7.5 10*3/uL 3.8-11.6 [facility] AFP (TUMOR MARKER)on 022 AFP, Serum, Tumor Marker <1.8 Normal 0.0-4.7 Comment on above: Result Comment: [employer] Electrochemiluminescence Immunoassay (ECLIA) . Values obtained with different assay methods or kits cannot be used interchangeably. Results cannot be interpreted as absolute evidence of the presence or absence of malignant disease. . This test is not interpretable in females. Performed By: #### U MICRO, PREGU, ERUR #### [facility] [address] [place], [place] [address] Dr. Adam Mejía CA 125on 08-06-2022 Cancer Antigen (CA) 125 29.7 U/mL Normal 0.0-38.1 Comment on above: Result Comment: [employer] Electrochemiluminescence Immunoassay (ECLIA) . Values obtained with different assay methods or kits cannot be used interchangeably. Results cannot be interpreted as absolute evidence of the presence or absence of malignant disease. Performed By: #### U MICRO, PREGU, ERUR #### [facility] [address] [address] [address] Adam Mejía CEAon 08-06-2022 CEA 0.9 ng/mL Normal 0.0-4.7 Comment on above: Result Comment: Nons mokers <3.9 Smokers <5.6 . [employer] Electrochemiluminescence Immunoassay (ECLIA) . Values obtained with different assay methods or kits cannot be used interchangeably. Results cannot be interpreted as absolute evidence of the presence or absence of malignant disease. Performed By: #### U VEAR PREGU, ERUR #### [facility] [address] [place] [address] Dr. Adam Mejía HCG QUANT TUMOR MARKERon HCG QNT TUMOR MARKER <1 Normal Comment on above: Result Comment: Fema le [...] developed and its performance characteristics determined by [employer] [facility]. It has not been cleared or approved by the Food and Drug Administration for use as a tumor marker. . This test is not interpretable as a tumor marker in females. Performed By: #### H CGTMOR #### [facility] [address] [place] [address] Dr. Adam Mejía LDHon 08-05-2022 LDH 164 U/L Normal 81-234 [facility] Comment on above: Performed By: #### U PARI GAMEZU, ERUR #### [facility] [address] [place] [address] Dr. Adam Mejía US PELVIS TRANSVAGon 022 [...] by: KALPESH FOWLER Date: 2022-07-29 06:26 Normal PAP ACOG PANEL 2: 30 to 65on 07-10-2022 . . Normal Comment on above: Result Comment: Perf ormed at: WB Performed By: #### [id number] #### [facility] [address] [place] [address] Dr. Adam Mejía Age Gdln ACOG Testing 30-65 Normal Comment on above: Performed By: #### [id number] #### [facility] [address] [address] [address] Adam Mejía DIAGNOSIS: Comment Normal Comment on above: Result Comment: NEGA TIVE FOR INTRAEPITHELIAL LESION OR MALIGNANCY. Performed at: WB Performed By: #### [id number] #### [facility] [address] [address] [address] Adma Mejía HPV Aptima Negative Normal Negative Comment on above: Result Comment: This nucleic acid amplification test detects fourteen high-risk HPV types (16,18,31,33,35,39,45,51,52,56,58,59,66,68) without differentiation. Performed at: =G Performed By: #### [id number] #### [facility] [address] [place] [address] Dr. Adam Mejía Methodology: Comment Normal Comment on above: Result Comment: This liquid based ThinPrep(R) pap test was screened with the use of an image guided system. Performed at: WB Performed By: #### [id number] #### [facility] [address] [place] [address] Dr. Adam Mejía Note: Comment Normal Comment on above: Result Comment: The Pap smear is a screening test designed to aid in the detection of premalignant and malignant conditions of the uterine cervix. It is not a diagnostic procedure and should not be used as the sole means of detecting cervical cancer. Both false-positive and false-negative reports do occur. . Performed at: WB Performed By: #### [id number] #### [facility] [address] [place] [address] Dr. Adam Mejía Performed by: Comment Normal Comment on above: Result Comment: [employer] (ASCP) Performed at: WB Performed By: #### [id number] #### [facility] [address] [place] [address] Dr. Adam Mejía Specimen adequacy: Comment Normal Comment on above: Result Comment: Sati sfactory for evaluation. No endocervical component is identified. Performed at: WB Performed By: #### [id number] #### [facility] [address] [place] [address] Dr. Adam Mejía CHLAMYDIA/GONOCOCCUS HIRAM (SW AB/URINE/PAPon 07-05-2022 Chlamydia trachomatis, HIRAM Negative Normal Negative Comment on above: Performed By: #### C T/NGNA #### [facility] [address] [place] [address] Dr. Adam Mejía Neisseria gonorrhoeae, HIRAM Negative Normal Negative Comment on above: Performed By: #### C T/NGNA #### [facility] [address] [place] [address] Dr. Adam Mejía VAGINITIS/VAGINOSIS DNA PROB [place] 07-05-2022 Marion species Positive Abnormal Negative [facility] Comment on above: Performed By: #### V AGINT #### [facility] [address] [address] [address] Adam Mejía Gardnerella vaginalis Positive Abnormal Negative [facility] Comment on above: Performed By: #### V AGINT #### [facility] [address] [address] [address] Adam Mejía Trichomonas vaginalis Negative Normal Negative [facility] Comment on above: Performed By: #### V AGINT #### [facility] [address] [address] [address] Adam Mejía Activated partial thrombopla stin time (aPTT) in platelet poor plasma by coagulation aOrdered By: Frank Silva on 07-04-2022 aPTT Coag (PPP) [Time] 30.9 s 25.1-36.5 [facility] Albumin [Mass/volume] in Ser um or PlasmaOrdered By: Frank Silva on 07-04-2022 Albumin [Mass/Vol] 3.6 g/dL 3.2-5.5 [facility] Automated erythrocytes count in urine sediment (number/area)Ordered By: Frank Silva on 07-04-2022 RBC Auto (Urine sed) [#/Area] 3-4 [HPF] 0-4 [facility] Automated leukocytes count i n urine sediment (number/area)Ordered By: Frank Silva on 07-04-2022 WBC Auto (Urine sed) [#/Area] 0-1 [HPF] 0-4 [facility] Basophils Auto (Bld) [#/Vol] Ordered By: Frank Silva on 07-04-2022 Basophils (Bld) [#/Vol] 0.0 10*3/uL 0.0-0.2 [facility] Basophils/100 WBC Auto (Bld) Ordered By: Frank Silva on 07-04-2022 Basophils/100 WBC (Bld) 0.4 % . [facility] Bilirubin Test strip Ql (U)O rdered By: Frank Silva on 07-04-2022 Bilirubin Ql (U) Negative Negative [facility] Color Auto (U)Ordered By: Godfrey Silva on 07-04-2022 Color (U) Yellow Yellow [facility] Creatinine and Glomerular fi ltration rate.predicted panel (S/P/Bld)Ordered By: Frank Silva on 07-04-2022 Creatinine [Mass/Vol] 0.80 mg/dL 0.44-1.03 [facility] Direct bilirubin measurement Ordered By: Frank Silva on 07-04-2022 Bilirubin.direct [Mass/Vol] mg/dL 0.0-0.4 [facility] Eosinophils Auto (Bld) [#/Vo l]Ordered By: Frank Silva on 07-04-2022 Eosinophils (Bld) [#/Vol] 0.1 10*3/uL 0.0-0.45 [facility] Eosinophils/100 WBC Auto (Bl d)Ordered By: Frank Silva on 07-04-2022 Eosinophils/100 WBC (Bld) 1.2 % . [facility] Erythrocyte distribution wid th Auto (RBC) [Ratio]Ordered By: Frank Silva on 07-04-2022 Erythrocyte distribution width (RBC) [Ratio] 14.9 % 11.9-15.3 [facility] Estimated glomerular filtrat ion rate (GFR) non- AmericanOrdered By: Frank Silva on 07-04-2022 GFR/1.73 sq M.predicted among non-blacks MDRD (S/P/Bld) [Vol rate/Area] > 60 mL/Min [facility] Globulin Calc (S) [Mass/Vol] Ordered By: Frank Silva on 07-04-2022 Globulin (S) [Mass/Vol] 3.3 g/dL [facility] HCG ( test) IA.rapi d Ql (U)Ordered By: Frank Silva on 07-04-2022 HCG ( test) Ql (U) Negative [facility] Hematocrit Auto (Bld) [Volum e fraction]Ordered By: Frank Silva on 07-04-2022 Hematocrit (Bld) [Volume fraction] 32.0 % 34.0-46.4 [facility] Hemoglobin [Mass/volume] in BloodOrdered By: Frank Silva on 07-04-2022 Hemoglobin (Bld) [Mass/Vol] 9.7 g/dL 11.8-15.4 [facility] Ketones Auto test strip (U) [Mass/Vol]Ordered By: Frank Silva on 07-04-2022 Ketones (U) [Mass/Vol] Trace Negative [facility] - Chemistry and C hemistry - challengeOrdered By: Frank Silva on 07-04-2022 Lipase [Catalytic activity/Vol] 43.0 U/L 22-51 [facility] - CoagulationOrde red By: Frank Silva on 07-04-2022 PT Coag (PPP) [Time] 13.3 s 9.0-12.9 [facility] - Hematology and Cell countsOrdered By: Frank Silva on 07-04-2022 Nucleated RBC/100 WBC (Bld) [Ratio] 0.1 % 0-0.5 [facility] - UrinalysisOrder ed By: Frank Silva on 07-04-2022 Hyaline casts LM Ql (Urine sed) 0-8 [LPF] 0-8 [facility] Leukocytes [#/volume] in Blo od by Automated countOrdered By: Frank Silva on 07-04-2022 WBC (Bld) [#/Vol] 8.7 10*3/uL 4.5-11.0 [facility] Lymphocytes Auto (Bld) [#/Vo l]Ordered By: Frank Silva on 07-04-2022 Lymphocytes (Bld) [#/Vol] 1.2 10*3/uL 1.00-4.8 [facility] Lymphocytes/100 WBC Auto (Bl d)Ordered By: Frank Silva on 07-04-2022 Lymphocytes/100 WBC (Bld) 14.2 % . [facility] MCH Auto (RBC) [Entitic mass ]Ordered By: Frank Silva on 07-04-2022 MCH (RBC) [Entitic mass] 21.4 pg 24.7-34.3 [facility] MCHC Auto (RBC) [Mass/Vol]Or dered By: Frank Silva on 07-04-2022 MCHC (RBC) [Mass/Vol] 30.4 g/dL 32.0-35.0 [facility] MCV Auto (RBC) [Entitic vol] Ordered By: Frank Silva on 07-04-2022 MCV (RBC) [Entitic vol] 70.4 fL 80-100 [facility] Monocytes Auto (Bld) [#/Vol] Ordered By: Frank Silva on 07-04-2022 Monocytes (Bld) [#/Vol] 0.4 10*3/uL 0.0-0.8 [facility] Monocytes/100 WBC Auto (Bld) Ordered By: Frank Silva on 07-04-2022 Monocytes/100 WBC (Bld) 5.0 % . [facility] Neutrophils Auto (Bld) [#/Vo l]Ordered By: Frank Silva on 07-04-2022 Neutrophils (Bld) [#/Vol] 6.9 10*3/uL 1.8-7.7 [facility] Neutrophils/100 WBC Auto (Bl d)Ordered By: Frank Silva on 07-04-2022 Neutrophils/100 WBC (Bld) 79.2 % . [facility] Nitrite Test strip Ql (U)Ord ered By: Frank Silva on 07-04-2022 Nitrite Ql (U) Negative Negative [facility] No Panel InformationOrdered By: Frank Silva on 07-04-2022 Estimated GFR () > 60 mL/Min [facility] Comment on above: GFR estimated refere nce range: According to KDOQI guidelines, <60 ml/min/1.73m2 is sufficient to diagnose a patient with chronic kidney disease. Pharmacy Creatinine Clearance (Chem 98.82 [facility] Platelet mean volume Auto (B ld) [Entitic vol]Ordered By: Frank Silva on 07-04-2022 Platelet mean volume (Bld) [Entitic vol] 9.5 fL 6.3-10.7 [facility] Platelet poor plasma interna tional normalized ratio (INR) by coagulation assay (relatOrdered By: Frank Silva on 07-04-2022 INR Coag (PPP) [Relative time] 1.2 {INR} [facility] Comment on above: INR Therapeutic Rang [...] 07-04-2022 Platelets (Bld) [#/Vol] 258 10*3/uL 150-450 [facility] Protein Auto test strip (U) [Mass/Vol]Ordered By: Frank Silva on 07-04-2022 Protein (U) [Mass/Vol] Negative Negative [facility] Protein [Mass/volume] in Ser um or PlasmaOrdered By: Frank Silva on 07-04-2022 Protein [Mass/Vol] 6.9 g/dL 6.1-7.9 [facility] RBC Auto (Bld) [#/Vol]Ordere d By: Frank Silva on 07-04-2022 RBC (Bld) [#/Vol] 4.54 10*6/uL 3.60-5.[address] [facility] Serum or plasma alanine keene otransferase measurement without P-5'-P (enzymatic activiOrdered By: Frank Silva on 07-04-2022 ALT No additional P-5'-P [Catalytic activity/Vol] 15 U/L 10-60 [facility] Serum or plasma albumin/glob ulin mass ratioOrdered By: Frank Silva on 07-04-2022 Albumin/Globulin [Mass ratio] 1.1 {ratio} [facility] Serum or plasma alkaline jared sphatase measurement (enzymatic activity/volume)Ordered By: Frank Silva on 07-04-2022 ALP [Catalytic activity/Vol] 50 U/L 32-92 [facility] Serum or plasma anion gap de terminationOrdered By: Frank Silva on 07-04-2022 Anion gap [Moles/Vol] 11.7 mmol/L 6.0-15.0 [facility] Serum or plasma aspartate am inotransferase measurement (enzymatic activity/volume)Ordered By: Frank Silva on 07-04-2022 AST [Catalytic activity/Vol] 14 U/L [facility] Serum or plasma calcium marychuy urement (mass/volume)Ordered By: Frank Silva on 07-04-2022 Calcium [Mass/Vol] 8.9 mg/dL 8.2-10.2 [facility] Serum or plasma chloride nemo surement (moles/volume)Ordered By: Frank Silva on 07-04-2022 Chloride [Moles/Vol] 105 mmol/L 95-114 [facility] Serum or plasma glucose marychuy urement (mass/volume)Ordered By: Frank Silva on 07-04-2022 Glucose [Mass/Vol] 97 mg/dL 70-100 [facility] Comment on above: ADA recommended refe rence rangeRandom Glucose Reference Range is dependent on time and content of last meal. Glucose of more than 200 mg/dL in a nonstressed, ambulatory subject supports the diagnosis of Diabetes Mellitus. Serum or plasma non-glucuron idated bilirubin measurement (mass/volume)Ordered By: Frank Silva on 07-04-2022 Bilirubin.indirect [Mass/Vol] TNP [facility] Comment on above: Test not performed Serum or plasma potassium me asurement (moles/volume)Ordered By: Frank Silva on 07-04-2022 Potassium [Moles/Vol] 3.7 mmol/L 3.5-5.1 [facility] Serum or plasma sodium measu rement (moles/volume)Ordered By: Frank Silva on 07-04-2022 Sodium [Moles/Vol] 136 mmol/L 136-146 [facility] Serum or plasma total biliru bin measurement (mass/volume)Ordered By: Frank Silva on 07-04-2022 Bilirubin [Mass/Vol] 0.5 mg/dL 0.3-1.2 [facility] Serum or plasma total carbon dioxide measurement (moles/volume)Ordered By: Frank Silva on 07-04-2022 CO2 [Moles/Vol] 23.0 mmol/L 22.0-30.0 [facility] Serum or plasma urea nitroge n measurement (mass/volume)Ordered By: Frank Silva on 07-04-2022 Urea nitrogen [Mass/Vol] 6 mg/dL 06-09 [facility] Specific gravity Auto test s trip (U) [Rel density]Ordered By: Frank Silva on 07-04-2022 Specific gravity (U) [Rel density] 1.010 1.001-1.[address] [facility] Squamous epithelial cells de tection in urine sediment by light microscopyOrdered By: Frank Silva on 07-04-2022 Epithelial cells.squamous LM Ql (Urine sed) 0-1 [HPF] 0-2 [facility] Urine bacteria detection by automated methodOrdered By: Frank Silva on 07-04-2022 Bacteria Auto Ql (U) None seen None Seen [facility] Urine clarity by refractomet ry automatedOrdered By: Frank Silva on 07-04-2022 Clarity Refractometry automated (U) Clear Clear [facility] Urine glucose measurement by automated test strip (mass/volume)Ordered By: Frank Silva on 07-04-2022 Glucose Auto test strip (U) [Mass/Vol] Normal mg/dL Normal [facility] Urine hemoglobin detection b y automated test stripOrdered By: Frank Silva on 07-04-2022 Hemoglobin Auto test strip Ql (U) Trace Negative [facility] Urine leukocyte esterase det ection by automated test stripOrdered By: Frank Silva on 07-04-2022 Leukocyte esterase Auto test strip Ql (U) 1+ Negative [facility] Urobilinogen Auto test strip (U) [Mass/Vol]Ordered By: Frank Silva on 07-04-2022 Urobilinogen (U) [Mass/Vol] Normal mg/dL Normal [facility] pH Auto test strip (U)Ordere d By: Frank Silva on 07-04-2022 pH (U) 6.5 [pH] 5.0-9.0 [facility] Activated partial thrombopla stin time (aPTT) in platelet poor plasma by coagulation aOrdered By: Marvin Serrano on 06-01-2022 aPTT Coag (PPP) [Time] 30.4 s 25.1-36.5 [facility] Basophils Auto (Bld) [#/Vol] Ordered By: Marvin Serrano on 06-01-2022 Basophils (Bld) [#/Vol] 0.1 10*3/uL 0.0-0.2 [facility] Basophils/100 WBC Auto (Bld) Ordered By: Marvin Serrano on 06-01-2022 Basophils/100 WBC (Bld) 1.1 % . [facility] Bilirubin Test strip Ql (U)O rdered By: Marvin Serrano on 06-01-2022 Bilirubin Ql (U) Negative Negative [facility] Blood hemoglobin measurement (mass/volume)Ordered By: Marvin Serrano on 06-01-2022 Hemoglobin (Bld) [Mass/Vol] 10.1 g/dL 11.8-15.4 [facility] Blood leukocytes automated c ount (number/volume)Ordered By: Marvin eSrrano on 06-01-2022 WBC (Bld) [#/Vol] 7.6 10*3/uL 4.5-11.0 [facility] Body fluid albumin measureme nt (mass/volume)Ordered By: Marvin Serrano on 06-01-2022 Albumin (Body fld) [Mass/Vol] 3.7 g/dL 3.2-5.5 [facility] Color Auto (U)Ordered By: Dane Serrano on 06-01-2022 Color (U) Yellow Yellow [facility] Creatinine and Glomerular fi ltration rate.predicted panel (S/P/Bld)Ordered By: Marvin Serrano on 06-01-2022 Creatinine [Mass/Vol] 0.82 mg/dL 0.44-1.03 [facility] Eosinophils Auto (Bld) [#/Vo l]Ordered By: Marvin Serrano on 06-01-2022 Eosinophils (Bld) [#/Vol] 0.2 10*3/uL 0.0-0.45 [facility] Eosinophils/100 WBC Auto (Bl d)Ordered By: Marvin Serrano on 06-01-2022 Eosinophils/100 WBC (Bld) 2.4 % . [facility] Erythrocyte distribution wid th Auto (RBC) [Ratio]Ordered By: Marvin Serrano on 06-01-2022 Erythrocyte distribution width (RBC) [Ratio] 14.3 % 11.9-15.3 [facility] Estimated glomerular filtrat ion rate (GFR) non- AmericanOrdered By: Marvin Serrano on 06-01-2022 GFR/1.73 sq M.predicted among non-blacks MDRD (S/P/Bld) [Vol rate/Area] > 60 mL/Min [facility] Globulin Calc (S) [Mass/Vol] Ordered By: Marvin Serrano on 06-01-2022 Globulin (S) [Mass/Vol] 3.4 g/dL [facility] HCG ( test) IA.rapi d Ql (U)Ordered By: Marvin Serrano on 06-01-2022 HCG ( test) Ql (U) Negative [facility] Hematocrit Auto (Bld) [Volum e fraction]Ordered By: Marvin Serrano on 06-01-2022 Hematocrit (Bld) [Volume fraction] 32.2 % 34.0-46.4 [facility] Ketones Auto test strip (U) [Mass/Vol]Ordered By: Marvin Serrano on 06-01-2022 Ketones (U) [Mass/Vol] Negative Negative [facility] - CoagulationOrde red By: Marvin Serrano on 06-01-2022 PT Coag (PPP) [Time] 12.4 s 9.0-12.9 [facility] Laboratory - Hematology and Cell countsOrdered By: Marvin Serrano on 06-01-2022 Nucleated RBC/100 WBC (Bld) [Ratio] 0.1 % 0-0.5 [facility] Lymphocytes Auto (Bld) [#/Vo l]Ordered By: Marvin Serrano on 06-01-2022 Lymphocytes (Bld) [#/Vol] 2.7 10*3/uL 1.00-4.8 [facility] Lymphocytes/100 WBC Auto (Bl d)Ordered By: Marvin Serrano on 06-01-2022 Lymphocytes/100 WBC (Bld) 35.8 % . [facility] MCH Auto (RBC) [Entitic mass ]Ordered By: Marvin Serrano on 06-01-2022 MCH (RBC) [Entitic mass] 22.0 pg 24.7-34.3 [facility] MCHC Auto (RBC) [Mass/Vol]Or dered By: Marvin Serrano on 06-01-2022 MCHC (RBC) [Mass/Vol] 31.3 g/dL 32.0-35.0 [facility] MCV Auto (RBC) [Entitic vol] Ordered By: Marvin Serrano on 06-01-2022 MCV (RBC) [Entitic vol] 70.4 fL 80-100 [facility] Monocytes Auto (Bld) [#/Vol] Ordered By: Marvin Serrano on 06-01-2022 Monocytes (Bld) [#/Vol] 0.5 10*3/uL 0.0-0.8 [facility] Monocytes/100 WBC Auto (Bld) Ordered By: Marvin Serrano on 06-01-2022 Monocytes/100 WBC (Bld) 7.1 % . [facility] Neutrophils Auto (Bld) [#/Vo l]Ordered By: Marvin Serrano on 06-01-2022 Neutrophils (Bld) [#/Vol] 4.1 10*3/uL 1.8-7.7 [facility] Neutrophils/100 WBC Auto (Bl d)Ordered By: Marvin Serrano on 06-01-2022 Neutrophils/100 WBC (Bld) 53.6 % . [facility] Nitrite Test strip Ql (U)Ord ered By: Marvin Serrano on 06-01-2022 Nitrite Ql (U) Negative Negative [facility] No Panel InformationOrdered By: Marvin Serrano on 06-01-2022 Estimated GFR () > 60 mL/Min [facility] Comment on above: GFR estimated refere nce range: According to KDOQI guidelines, <60 ml/min/1.73m2 is sufficient to diagnose a patient with chronic kidney disease. Pharmacy Creatinine Clearance (Chem 97.22 [facility] Platelet mean volume Auto (B ld) [Entitic vol]Ordered By: Marvin Serrano on 06-01-2022 Platelet mean volume (Bld) [Entitic vol] 9.9 fL 6.3-10.7 [facility] Platelet poor plasma interna tional normalized ratio (INR) by coagulation assay (relatOrdered By: Marvin Serrano on 06-01-2022 INR Coag (PPP) [Relative time] 1.1 {INR} [facility] Comment on above: INR Therapeutic Rang [...] 06-01-2022 Platelets (Bld) [#/Vol] 218 10*3/uL 150-450 [facility] Protein Auto test strip (U) [Mass/Vol]Ordered By: Marvin Serrano on 06-01-2022 Protein (U) [Mass/Vol] Negative Negative [facility] Protein [Mass/volume] in Ser um or PlasmaOrdered By: Marvin Serrano on 06-01-2022 Protein [Mass/Vol] 7.1 g/dL 6.1-7.9 [facility] RBC Auto (Bld) [#/Vol]Ordere d By: Marvin Serrano on 06-01-2022 RBC (Bld) [#/Vol] 4.57 10*6/uL 3.60-5.[address] [facility] Serum or plasma alanine keene otransferase measurement without P-5'-P (enzymatic activiOrdered By: Marvin Serrano on 06-01-2022 ALT No additional P-5'-P [Catalytic activity/Vol] 12 U/L 10-60 [facility] Serum or plasma albumin/glob ulin mass ratioOrdered By: Marvin Serrano on 06-01-2022 Albumin/Globulin [Mass ratio] 1.1 {ratio} [facility] Serum or plasma alkaline jared sphatase measurement (enzymatic activity/volume)Ordered By: Marvin Serrano on 06-01-2022 ALP [Catalytic activity/Vol] 46 U/L 32-92 [facility] Serum or plasma anion gap de terminationOrdered By: Marvin Serrano on 06-01-2022 Anion gap [Moles/Vol] 15.3 mmol/L 6.0-15.0 [facility] Serum or plasma aspartate am inotransferase measurement (enzymatic activity/volume)Ordered By: Marvin Serrano on 06-01-2022 AST [Catalytic activity/Vol] 13 U/L 10-42 [facility] Serum or plasma calcium marychuy urement (mass/volume)Ordered By: Marvin Serrano on 06-01-2022 Calcium [Mass/Vol] 9.1 mg/dL 8.2-10.2 [facility] Serum or plasma chloride nemo surement (moles/volume)Ordered By: Marvin Serrano on 06-01-2022 Chloride [Moles/Vol] 103 mmol/L 95-114 [facility] Serum or plasma glucose marychuy urement (mass/volume)Ordered By: Marvin Serrano on 06-01-2022 Glucose [Mass/Vol] 113 mg/dL 70-100 [facility] Comment on above: ADA recommended refe rence [...] on 06-01-2022 Potassium [Moles/Vol] 3.0 mmol/L 3.5-5.1 [facility] Serum or plasma sodium measu rement (moles/volume)Ordered By: Marvin Serrano on 06-01-2022 Sodium [Moles/Vol] 137 mmol/L 136-146 [facility] Serum or plasma total biliru bin measurement (mass/volume)Ordered By: Marvin Serrano on 06-01-2022 Bilirubin [Mass/Vol] 0.4 mg/dL 0.3-1.2 [facility] Serum or plasma total carbon dioxide measurement (moles/volume)Ordered By: Marvin Serrano on 06-01-2022 CO2 [Moles/Vol] 21.7 mmol/L 22.0-30.0 [facility] Serum or plasma urea nitroge n measurement (mass/volume)Ordered By: Marvin Serrano on 06-01-2022 Urea nitrogen [Mass/Vol] 11 mg/dL 9-23 [facility] Specific gravity Auto test s trip (U) [Rel density]Ordered By: Marvin Serrano on 06-01-2022 Specific gravity (U) [Rel density] 1.003 1.001-1.[address] [facility] Urine clarity by refractomet ry automatedOrdered By: Marvin Serrano on 06-01-2022 Clarity Refractometry automated (U) Clear Clear [facility] Urine glucose measurement by automated test strip (mass/volume)Ordered By: Marvin Serrano on 06-01-2022 Glucose Auto test strip (U) [Mass/Vol] Normal mg/dL Normal [facility] Urine hemoglobin detection b y automated test stripOrdered By: Marvin Serrano on 06-01-2022 Hemoglobin Auto test strip Ql (U) Negative Negative [facility] Urine leukocyte esterase det ection by automated test stripOrdered By: Marvin Serrano on 06-01-2022 Leukocyte esterase Auto test strip Ql (U) Negative Negative [facility] Urobilinogen Auto test strip (U) [Mass/Vol]Ordered By: Marvin Serrano on 06-01-2022 Urobilinogen (U) [Mass/Vol] Normal mg/dL Normal [facility] pH Auto test strip (U)Ordere d By: Marvin Serrano on 06-01-2022 pH (U) 7.0 [pH] 5.0-9.0 [facility] Office Visit (Oncology Surge ry)on 04-21-2022 [...] need for her to return to her INSTRUMENT[employer] [facility] Dr. Pendleton for discussion of ongoing treatment. She brought up the option for Hysterectomy and Oophorectomy to prevent endometriosis related pains. Mrs. Fonseca was told clearly to call Dr. Pendleton's [...] visit. Active Problems Problems Abdominal wall mass (789.30) (R22.2) Allergies Medication albuterol Recorded By: Kim Isaac; 03/24/2022 11:45:28 AM Current Meds Medication NameInstructionReason Ondansetron 8 MG Oral Tablet DisintegratingTAKE 1 TABLET Every 8 hoursAbdominal wall (more content not included)... Normal [facility] ABD/PELV W CONon 04-19-20 CT ABD/PELV [...] by: Lenny TANNER Date: 2022-04-18 23:01 Normal ER URINE PROFILEon 2 Bilirubin Ql (U) Negative Normal NEGATIVE Comment on above: Performed By: #### U MICRO, PREGU, ERUR #### [facility] [address] [place] [address] Dr. Adam Mejía Clarity (U) CLEAR Normal CLEAR Comment on above: Performed By: #### U MICRO, PREGU, ERUR #### [facility] [address] [address] [address] Adam Mejía Color (U) YELLOW Normal YELLOW [facility] Comment on above: Performed By: #### U MICRO, PREGU, ERUR #### [facility] [address] [address] [address] Adam Mejía ERUSAGRARIO A micrscopic examina tion will be performed if indicated. Normal [facility] Comment on above: Performed By: #### U MICRO, PREGU, ERUR #### [facility] [address] [address] [address] Adam Mejía Glucose Ql (U) Negative Normal NEGATIVE Comment on above: Performed By: #### U MICRO, PREGU, ERUR #### [facility] [address] [address] [address] Adam Mejía Hemoglobin Ql (U) SMALL Abnormal NEGATIVE Comment on above: Performed By: #### U MICRO, PREGU, ERUR #### [facility] [address] [place] [address] Dr. Adam Mejía Ketones Ql (U) >=80 Abnormal NEGATIVE [facility] Comment on above: Performed By: #### U MICRO, PREGU, ERUR #### [facility] [address] [place] [address] Dr. Adam Mejía LEUKOCYTES Negative Normal NEGATIVE Comment on above: Performed By: #### U MICRO, PREGU, ERUR #### [facility] [address] [place] [address] Dr. Adam Mejía Nitrite Ql (U) Negative Normal NEGATIVE Comment on above: Performed By: #### U MICRO, PREGU, ERUR #### [facility] [address] [place] [address] Dr. Adam Mejía pH (U) 6.5 [pH] Normal 5-9 [facility] Comment on above: Performed By: #### U MICRO, PREGU, ERUR #### [facility] [address] [place] [address] Dr. Adam Mejía SPEC GRAVITY 1.015 Normal 1.005-<=1. 025 [facility] Comment on above: Performed By: #### U MICRO, PREGU, ERUR #### [facility] [address] [place] [address] Dr. Adam Mejía UA PROTEIN Negative Normal NEGATIVE/ TRACE [facility] Comment on above: Performed By: #### U MICRO, PREGU, ERUR #### [facility] [address] [place] [address] Dr. Adam Mejía UR MICRO IND INDICATED Normal [facility] Comment on above: Performed By: #### U MICRO, PREGU, ERUR #### [facility] [address] [place] [address] Dr. Adam Mejía Urobilinogen Qn (U) 0.2 {Brinda'U}/dL Normal 0.2 - 1. 0 [facility] Comment on above: Performed By: #### U MICRO, PREGU, ERUR #### [facility] [address] [address] [address] Adam Mejía URon 04-18-2022 , QUAL Negative Normal NEGATIVE [facility] Comment on above: Performed By: #### U MICRO, PREGU, ERUR #### [facility] [address] [address] [address] Adam Mejía URINE MICROSCOPIC ONLYon BACTERIA TRACE Abnormal NONE SEEN [facility] Comment on above: Performed By: #### U MICRO, PREGU, ERUR #### [facility] [address] [place] [address] Dr. Adam Mejía Bacteria identified Cx Nom (U) NOT INDICATED Normal [facility] Comment on above: Performed By: #### U MICRO, PREGU, ERUR #### [facility] [address] [place] [address] Dr. Adam Mejía CAST NONE SEEN Normal NONE SEEN [facility] Comment on above: Performed By: #### U MICRO, PREGU, ERUR #### [facility] [address] [place] [address] Dr. Adam Mejía Crystals LM Nom (Urine sed) NONE SEEN Normal NONE SEEN [facility] Comment on above: Performed By: #### U MICRO, PREGU, ERUR #### [facility] [address] [place] [address] Dr. Adam Mejía Epithelial cells LM Ql (Urine sed) FEW Abnormal NONE SEEN /RARE [facility] Comment on above: Performed By: #### U MICRO, PREGU, ERUR #### [facility] [address] [place] [address] Dr. Adam Mejía MUCOUS NONE SEEN Normal NONE SEEN [facility] Comment on above: Performed By: #### U MICRO, PREGU, ERUR #### [facility] [address] [place] [address] Dr. Adam Mejía RBC 0-2 Normal 0-2 [facility] Comment on above: Performed By: #### U MICRO, PREGU, ERUR #### [facility] [address] [address] [address] Adam Mejía WBC 0-2 Abnormal NONE SEEN [facility] Comment on above: Performed By: #### U MICRO, PREGU, ERUR #### [facility] [address] [address] [address] Adam Mejía Body fluid albumin measureme nt (mass/volume)Ordered By: Yudelka Lopez on 04-14-2022 Albumin (Body fld) [Mass/Vol] 3.9 g/dL 3.2-5.5 [facility] Creatinine and Glomerular fi ltration rate.predicted panel (S/P/Bld)Ordered By: Yudelka Lopez on 04-14-2022 Creatinine [Mass/Vol] 0.77 mg/dL 0.44-1.03 [facility] Estimated glomerular filtrat ion rate (GFR) non- AmericanOrdered By: Yudelka Lopez on 04-14-2022 GFR/1.73 sq M.predicted among non-blacks MDRD (S/P/Bld) [Vol rate/Area] > 60 mL/Min [facility] Globulin Calc (S) [Mass/Vol] Ordered By: Yudelka Lopez on 04-14-2022 Globulin (S) [Mass/Vol] 3.0 g/dL [facility] No Panel InformationOrdered By: Yudelka Lopez on 04-14-2022 Estimated GFR () > 60 mL/Min [facility] Comment on above: GFR estimated refere nce range: According to KDOQI guidelines, <60 ml/min/1.73m2 is sufficient to diagnose a patient with chronic kidney disease. Pharmacy Creatinine Clearance (Chem N/A [facility] Protein [Mass/volume] in Ser um or PlasmaOrdered By: Yudelka Lopez on 04-14-2022 Protein [Mass/Vol] 6.9 g/dL 6.1-7.9 [facility] Serum or plasma alanine keene otransferase measurement without P-5'-P (enzymatic activiOrdered By: Yudelka Lopez on 04-14-2022 ALT No additional P-5'-P [Catalytic activity/Vol] 13 U/L 10-60 [facility] Serum or plasma albumin/glob ulin mass ratioOrdered By: Yudelka Lopez on 04-14-2022 Albumin/Globulin [Mass ratio] 1.3 {ratio} [facility] Serum or plasma alkaline jared sphatase measurement (enzymatic activity/volume)Ordered By: Yudelka Lopez on 04-14-2022 ALP [Catalytic activity/Vol] 44 U/L 32-92 [facility] Serum or plasma aspartate am inotransferase measurement (enzymatic activity/volume)Ordered By: Yudelka Lopez on 04-14-2022 AST [Catalytic activity/Vol] 14 U/L 10-42 [facility] Serum or plasma calcium marychuy urement (mass/volume)Ordered By: Yudelka Lopez on 04-14-2022 Calcium [Mass/Vol] 9.5 mg/dL 8.2-10.2 [facility] Serum or plasma chloride nemo surement (moles/volume)Ordered By: Yudelka Lopez on 04-14-2022 Chloride [Moles/Vol] 104 mmol/L 95-114 [facility] Serum or plasma glucose marychuy urement (mass/volume)Ordered By: Yudelka Lopez on 04-14-2022 Glucose [Mass/Vol] 85 mg/dL 70-100 [facility] Comment on above: ADA recommended refe rence [...] on 04-14-2022 Potassium [Moles/Vol] 4.2 mmol/L 3.5-5.1 [facility] Serum or plasma sodium measu rement (moles/volume)Ordered By: Yudelka Lopez on 04-14-2022 Sodium [Moles/Vol] 136 mmol/L 136-146 [facility] Serum or plasma total biliru bin measurement (mass/volume)Ordered By: Yudelka Lopez on 04-14-2022 Bilirubin [Mass/Vol] 0.2 mg/dL 0.3-1.2 [facility] Serum or plasma total carbon dioxide measurement (moles/volume)Ordered By: Yudelka Lopez on 04-14-2022 CO2 [Moles/Vol] 24.5 mmol/L 22.0-30.0 [facility] Serum or plasma urea nitroge n measurement (mass/volume)Ordered By: Yudelka Lopez on 04-14-2022 Urea nitrogen [Mass/Vol] 6 mg/dL 9- [facility] AMYLASEon 04-11-2022 Amylase [Catalytic activity/Vol] 54 U/L Normal 25-115 [facility] Comment on above: Performed By: #### A MY, CMP, LIPA #### [facility] [address] [place] [address] Dr. Adam Mejía CBC AUTO DIFFon 04-11-2022 BASO # 0.0 103/ul Normal 0.0-0.1 Comment on above: Performed By: #### C BC #### [facility] [address] [address] [address] Adam Mejía Basophils/100 WBC (Bld) 0.2 % Normal 0.2-2.0 Comment on above: Performed By: #### C BC #### [facility] [address] [place] [address] Dr. Adam Mejía EO # 0.1 103/ul Normal 0.0-0.7 [facility] Comment on above: Performed By: #### C BC #### [facility] [address] [address] [address] Adam Mejía Eosinophils/100 WBC (Bld) 0.6 % Critically low 0.9-7.0 [facility] Comment on above: Performed By: #### C BC #### [facility] [address] [place] [address] Dr. Adam Mejía Erythrocyte distribution width (RBC) [Ratio] 13.9 % Normal 11.0-15.0 Comment on above: Performed By: #### C BC #### [facility] [address] [place] [address] Dr. Adam Mejía Hematocrit (Bld) [Volume fraction] 31.4 % Critically low 36.0-48.0 Comment on above: Performed By: #### C BC #### [facility] [address] [place] [address] Dr. Adam Mejía Hemoglobin (Bld) [Mass/Vol] 9.8 g/dL Critically low 12.0-16.0 [facility] Comment on above: Performed By: #### C BC #### [facility] [address] [place] [address] Dr. Adam Mejía IG # 0.03 10e3/ul Normal 0.00-0.03 Comment on above: Performed By: #### C BC #### [facility] [address] [place] [address] Dr. Adam Mejía IG % 0.3 % Normal 0.0-0.5 Comment on above: Performed By: #### C BC #### [facility] [address] [place] [address] Dr. Adam Mejía LYMPH # 1.1 103/ul Critically low 1.2-3.8 Comment on above: Performed By: #### C BC #### [facility] [address] [place] [address] Dr. Adam Mejía Lymphocytes/100 WBC (Bld) 9.3 % Critically low 20.5-60.0 Comment on above: Performed By: #### C BC #### [facility] [address] [place] [address] Dr. Adam Mejía MANUAL DIFF REQ NO Normal [facility] Comment on above: Performed By: #### C BC #### [facility] [address] [place] [address] Dr. Adam Mejía MCH (RBC) [Entitic mass] 22.5 pg Critically low 26.7-34.0 Comment on above: Performed By: #### C BC #### [facility] [address] [address] [address] Adam Mejía MCHC (RBC) [Mass/Vol] 31.2 g/dL Normal 29.9-35.2 Comment on above: Performed By: #### C BC #### [facility] [address] [address] [address] Adam Mejía MCV (RBC) [Entitic vol] 72.0 fL Critically low 81.0-99.0 Comment on above: Performed By: #### C BC #### [facility] [address] [address] [address] Adam Mejía MONO # 0.6 103/ul Normal 0.3-0.8 Comment on above: Performed By: #### C BC #### [facility] [address] [place] [address] Dr. Adam Mejía Monocytes/100 WBC (Bld) 4.6 % Normal 1.7-12.0 Comment on above: Performed By: #### C BC #### [facility] [address] [place] [address] Dr. Adam Mejía NEUT # 10.2 103/ul Critically high 1.4-6.5 Comment on above: Performed By: #### C BC #### [facility] [address] [place] [address] Dr. Adam Mejía Neutrophils/100 WBC (Bld) 85.0 % Critically high 43.0-75.0 [facility] Comment on above: Performed By: #### C BC #### [facility] [address] [place] [address] Dr. Adam Mejía Platelet mean volume (Bld) [Entitic vol] 12.1 fL Normal 9.5-13.5 [facility] Comment on above: Performed By: #### C BC #### [facility] [address] [place] [address] Dr. Adam Mejía PLT 270 103/ul Normal 150-450 [facility] Comment on above: Performed By: #### C BC #### [facility] [address] [address] [address] Adam Mejía RBC 4.36 106/ul Normal 4.20-5.40 [facility] Comment on above: Performed By: #### C BC #### [facility] [address] [address] [address] Adam Mejía WBC 12.0 103/ul Critically high 4.0-11.0 [facility] Comment on above: Performed By: #### C BC #### [facility] [address] [id number] Adam Mejía CT ABD/PELV W CONon [...] NADIA MORROW Date: 2022-04-11 07:25 Normal [facility] LIPASEon 04-11-2022 Lipase [Catalytic activity/Vol] 152.0 U/L Normal 73.0-393.0 [facility] Comment on above: Performed By: #### A MY, CMP, LIPA #### [facility] [address] [address] [address] Adam Mejía PREG HCG QUALon 04-11-2022 , QUAL Negative Normal NEGATIVE Comment on above: Performed By: #### U MICRO, PREGU, ERUR #### [facility] [address] [address] [address] Adam Mejía PROF 14(COMP METB)on 022 Albumin [Mass/Vol] 3.8 g/dL Normal 3.4-5.0 Comment on above: Performed By: #### U MICRO, PREGU, ERUR #### [facility] [address] [address] [address] Adam Mejía Albumin/Globulin [Mass ratio] 0.9 {ratio} Normal Comment on above: Performed By: #### U MICRO, PREGU, ERUR #### [facility] [address] [address] [address] Adam Mejía ALP [Catalytic activity/Vol] 51 U/L Normal 46-116 Comment on above: Performed By: #### U MICRO, PREGU, ERUR #### [facility] [address] [address] [address] Adam Mejía ALT [Catalytic activity/Vol] 11 U/L Critically low 14-59 Comment on above: Performed By: #### U MICRO, PREGU, ERUR #### [facility] [address] [address] [address] Adam Mejía Anion gap [Moles/Vol] 11.9 mmol/L Normal [facility] Comment on above: Performed By: #### U MICRO, PREGU, ERUR #### [facility] [facility] [address] [address] [address] Adam Mejía AST [Catalytic activity/Vol] 14 U/L Critically low 15-37 Comment on above: Performed By: #### U MICRO, PREGU, ERUR #### [facility] [address] [address] [address] Adam Mejía Bilirubin [Mass/Vol] 0.4 mg/dL Normal 0.2-1.0 Comment on above: Performed By: #### U MICRO, PREGU, ERUR #### [facility] [address] [address] [address] Adam Mejía Calcium [Mass/Vol] 9.4 mg/dL Normal 8.5-10.1 [facility] Comment on above: Performed By: #### U MICRO, PREGU, ERUR #### [facility] [address] [address] [address] Adam Mejía Chloride [Moles/Vol] 104 mmol/L Normal 98-107 [facility] Comment on above: Performed By: #### U MICRO, PREGU, ERUR #### [facility] [address] [place] [address] Dr. Adam Mejía CO2 [Moles/Vol] 26.1 mmol/L Normal 21.0-32.0 Comment on above: Performed By: #### U MICRO, PREGU, ERUR #### [facility] [address] [address] [address] Adam Mejía Creatinine [Mass/Vol] 0.78 mg/dL Normal 0.55-1.02 Comment on above: Performed By: #### U MICRO, PREGU, ERUR #### [facility] [address] [address] [address] Adam Mejía EGFR-AF SAMMARINESE >60 Normal >=60 [facility] Comment on above: Performed By: #### U MICRO, PREGU, ERUR #### [facility] [address] [address] [address] Adam Mejía EGFR-NON AF SAMMARINESE >60 Normal >=60 [facility] Comment on above: Performed By: #### U MICRO, PREGU, ERUR #### [facility] [address] [place] [address] Dr. Adam Mejía Globulin (S) [Mass/Vol] 4.1 g/dL Normal [facility] Comment on above: Performed By: #### U MICRO, PREGU, ERUR #### [facility] [address] [address] [address] Adam Mejía Glucose [Mass/Vol] 111 mg/dL Critically high 74-106 T [facility] Comment on above: Performed By: #### U MICRO, PREGU, ERUR #### [facility] [address] [address] [address] Adam Mejía Potassium [Moles/Vol] 4.0 mmol/L Normal 3.5-5.1 Comment on above: Performed By: #### U MICRO, PREGU, ERUR #### [facility] [address] [address] [address] Adam Mejía Protein [Mass/Vol] 7.9 g/dL Normal 6.4-8.2 Comment on above: Performed By: #### U MICRO, PREGU, ERUR #### [facility] [address] [address] [address] Adam Mejía Sodium [Moles/Vol] 138 mmol/L Normal 136-145 Comment on above: Performed By: #### U MICRO, PREGU, ERUR #### [facility] [address] [address] [address] Adam Mejía Urea nitrogen [Mass/Vol] 10.0 mg/dL Normal 7.0-18.0 Comment on above: Performed By: #### U MICRO, PREGU, ERUR #### [facility] [address] [address] [address] Adam Mejía Urea nitrogen/Creatinine [Mass ratio] 12.8 mg/mg Normal Comment on above: Performed By: #### U MICRO, PREGU, ERUR #### [facility] [address] [address] [address] Adam Mejía XR ABD FLAT UP_PA Baudilio 04-11 XR ABD FLAT UP_PA CH COMPARISON: Abdomin al CT, today at 5:44 [...] of bowel obstruction. Electronically authenticated by: NADIA MORROW Date: 2022-04-11 06:26 Normal [facility] Blood Pressure Cuff Sizeon 0 04-07-2022 Tobacco use status CPHS b) [facility]: Blood Pressure Cuff Size [facility] Work Phone: Office Visit (Oncology Surge ry)on 04-07-2022 Follow-up visit Diagnoses/Problems Assessed Abdominal wall mass (482.30) (R22.2) Orders Abdominal wall mass Continue: Ondansetron [...] return. 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 Pendleton for discussion of ongoing treatment. [...] Endometrioma of prior scar History of Present IllnessMsJorge [...] 325 (65 (more content not included)... Normal [employer] Act[employer] partial thrombopla stin time (aPTT) in platelet poor plasma by coagulation aOrdered By: Frank Silva on 04-04-2022 aPTT Coag (PPP) [Time] 29.4 s 25.1-36.5 [facility] Albumin [Mass/volume] in Ser um or PlasmaOrdered By: Frank Silva on 04-04-2022 Albumin [Mass/Vol] 3.6 g/dL 3.2-5.5 [facility] Automated erythrocytes count in urine sediment (number/area)Ordered By: Janette Dior on 04-04-2022 RBC Auto (Urine sed) [#/Area] 20-49 [HPF] 0-4 [facility] Automated leukocytes count i n urine sediment (number/area)Ordered By: Janette Dior on 04-04-2022 WBC Auto (Urine sed) [#/Area] 10-19 [HPF] 0-4 [facility] Basophils Auto (Bld) [#/Vol] Ordered By: Frank Silva on 04-04-2022 Basophils (Bld) [#/Vol] 0.0 10*3/uL 0.0-0.2 [facility] Basophils/100 WBC Auto (Bld) Ordered By: Frank Silva on 04-04-2022 Basophils/100 WBC (Bld) 0.4 % . [facility] Bilirubin Test strip Ql (U)O rdered By: Janette Dior on 04-04-2022 Bilirubin Ql (U) Negative Negative [facility] Blood hemoglobin measurement (mass/volume)Ordered By: Frank Silva on 04-04-2022 Hemoglobin (Bld) [Mass/Vol] 10.0 g/dL 11.8-15.4 [facility] Blood leukocytes automated c ount (number/volume)Ordered By: Frank Silva on 04-04-2022 WBC (Bld) [#/Vol] 9.8 10*3/uL 4.5-11.0 [facility] Color Auto (U)Ordered By: Anatoliy Dior on 04-04-2022 Color (U) Yellow Yellow [facility] Creatinine and Glomerular fi ltration rate.predicted panel (S/P/Bld)Ordered By: Frank Silva on 04-04-2022 Creatinine [Mass/Vol] 0.93 mg/dL 0.44-1.03 [facility] Eosinophils Auto (Bld) [#/Vo l]Ordered By: Frank Silva on 04-04-2022 Eosinophils (Bld) [#/Vol] 0.0 10*3/uL 0.0-0.45 [facility] Eosinophils/100 WBC Auto (Bl d)Ordered By: Frank Silva on 04-04-2022 Eosinophils/100 WBC (Bld) 0.3 % . [facility] Erythrocyte distribution wid th Auto (RBC) [Ratio]Ordered By: Frank Silva on 04-04-2022 Erythrocyte distribution width (RBC) [Ratio] 14.1 % 11.9-15.3 [facility] Estimated glomerular filtrat ion rate (GFR) non- AmericanOrdered By: Frank Silva on 04-04-2022 GFR/1.73 sq M.predicted among non-blacks MDRD (S/P/Bld) [Vol rate/Area] > 60 mL/Min [facility] Globulin Calc (S) [Mass/Vol] Ordered By: Frank Silva on 04-04-2022 Globulin (S) [Mass/Vol] 3.1 g/dL [facility] HCG ( test) IA.rapi d Ql (U)Ordered By: Janette Dior on 04-04-2022 HCG ( test) Ql (U) Negative [facility] HCG ( test) IA.rapi d Ql (U)Ordered By: Frank Silva on 04-04-2022 HCG ( test) Ql (U) Negative [facility] Hematocrit Auto (Bld) [Volum e fraction]Ordered By: Frank Silva on 04-04-2022 Hematocrit (Bld) [Volume fraction] 31.9 % 34.0-46.4 [facility] Ketones Auto test strip (U) [Mass/Vol]Ordered By: Janette Dior on 04-04-2022 Ketones (U) [Mass/Vol] 4+ Negative [facility] - Chemistry and C hemistry - challengeOrdered By: Frank Silva on 04-04-2022 Natriuretic peptide B (Bld) [Mass/Vol] 44.0 pg/mL 5-100 [facility] - CoagulationOrde red By: Frank Silva on 04-04-2022 PT Coag (PPP) [Time] 14.0 s 9.0-12.9 [facility] - Hematology and Cell countsOrdered By: Frank Silva on 04-04-2022 Nucleated RBC/100 WBC (Bld) [Ratio] 0.0 % 0-0.5 [facility] - UrinalysisOrder ed By: Janette Dior on 04-04-2022 Hyaline casts LM Ql (Urine sed) 0-8 [LPF] 0-8 [facility] Lymphocytes Auto (Bld) [#/Vo l]Ordered By: Frank Silva on 04-04-2022 Lymphocytes (Bld) [#/Vol] 2.1 10*3/uL 1.00-4.8 [facility] Lymphocytes/100 WBC Auto (Bl d)Ordered By: Frank Silva on 04-04-2022 Lymphocytes/100 WBC (Bld) 21.5 % . [facility] MCH Auto (RBC) [Entitic mass ]Ordered By: Frank Silva on 04-04-2022 MCH (RBC) [Entitic mass] 22.2 pg 24.7-34.3 [facility] MCHC Auto (RBC) [Mass/Vol]Or dered By: Frank Silva on 04-04-2022 MCHC (RBC) [Mass/Vol] 31.2 g/dL 32.0-35.0 [facility] MCV Auto (RBC) [Entitic vol] Ordered By: Frank Silva on 04-04-2022 MCV (RBC) [Entitic vol] 71.2 fL 80-100 [facility] Monocytes Auto (Bld) [#/Vol] Ordered By: Frank Silva on 04-04-2022 Monocytes (Bld) [#/Vol] 0.7 10*3/uL 0.0-0.8 [facility] Monocytes/100 WBC Auto (Bld) Ordered By: Frank Silva on 04-04-2022 Monocytes/100 WBC (Bld) 6.9 % . [facility] Neutrophils Auto (Bld) [#/Vo l]Ordered By: Frank Silva on 04-04-2022 Neutrophils (Bld) [#/Vol] 7.0 10*3/uL 1.8-7.7 [facility] Neutrophils/100 WBC Auto (Bl d)Ordered By: Frank Silva on 04-04-2022 Neutrophils/100 WBC (Bld) 70.9 % . [facility] Nitrite Test strip Ql (U)Ord ered By: Janette Dior on 04-04-2022 Nitrite Ql (U) Negative Negative [facility] No Panel InformationOrdered By: Frank Silva on 04-04-2022 Estimated GFR () > 60 mL/Min [facility] Comment on above: GFR estimated refere nce range: According to KDOQI guidelines, <60 ml/min/1.73m2 is sufficient to diagnose a patient with chronic kidney disease. Pharmacy Creatinine Clearance (Chem 84.97 [facility] Platelet mean volume Auto (B ld) [Entitic vol]Ordered By: Frank Silva on 04-04-2022 Platelet mean volume (Bld) [Entitic vol] 9.6 fL 6.3-10.7 [facility] Platelet poor plasma interna tional normalized ratio (INR) by coagulation assay (relatOrdered By: Frank Silva on 04-04-2022 INR Coag (PPP) [Relative time] 1.2 {INR} [facility] Comment on above: INR Therapeutic Rang [...] 04-04-2022 Platelets (Bld) [#/Vol] 224 10*3/uL 150-450 [facility] Protein Auto test strip (U) [Mass/Vol]Ordered By: Janette Dior on 04-04-2022 Protein (U) [Mass/Vol] Trace mg/dL Negative [facility] Protein [Mass/volume] in Ser um or PlasmaOrdered By: Frank Silva on 04-04-2022 Protein [Mass/Vol] 6.7 g/dL 6.1-7.9 [facility] RBC Auto (Bld) [#/Vol]Ordere d By: Frank Silva on 04-04-2022 RBC (Bld) [#/Vol] 4.49 10*6/uL 3.60-5.[address] [facility] Serum or plasma alanine keene otransferase measurement without P-5'-P (enzymatic activiOrdered By: Frank Silva on 04-04-2022 ALT No additional P-5'-P [Catalytic activity/Vol] 15 U/L 10-60 [facility] Serum or plasma albumin/glob ulin mass ratioOrdered By: Frank Silva on 04-04-2022 Albumin/Globulin [Mass ratio] 1.2 {ratio} [facility] Serum or plasma alkaline jared sphatase measurement (enzymatic activity/volume)Ordered By: Frank Silva on 04-04-2022 ALP [Catalytic activity/Vol] 48 U/L 32-92 [facility] Serum or plasma aspartate am inotransferase measurement (enzymatic activity/volume)Ordered By: Frank Silva on 04-04-2022 AST [Catalytic activity/Vol] 15 U/L 10-42 [facility] Serum or plasma calcium marychuy urement (mass/volume)Ordered By: Frank Silva on 04-04-2022 Calcium [Mass/Vol] 9.0 mg/dL 8.2-10.2 [facility] Serum or plasma chloride nemo surement (moles/volume)Ordered By: Frank Silva on 04-04-2022 Chloride [Moles/Vol] 102 mmol/L 95-114 [facility] Serum or plasma glucose marychuy urement (mass/volume)Ordered By: Frank Silva on 04-04-2022 Glucose [Mass/Vol] 92 mg/dL 70-100 [facility] Comment on above: ADA recommended refe rence range Random Glucose Reference Range is dependent on time and content of last meal. Glucose of more than 200 mg/dL in a nonstressed, ambulatory subject supports the diagnosis of Diabetes Mellitus. Serum or plasma potassium me asurement (moles/volume)Ordered By: Frank Silva on 04-04-2022 Potassium [Moles/Vol] 3.1 mmol/L 3.5-5.1 [facility] Serum or plasma sodium measu rement (moles/volume)Ordered By: Frank Silva on 04-04-2022 Sodium [Moles/Vol] 137 mmol/L 136-146 [facility] Serum or plasma total biliru bin measurement (mass/volume)Ordered By: Frank Silva on 04-04-2022 Bilirubin [Mass/Vol] 0.7 mg/dL 0.3-1.2 [facility] Serum or plasma total carbon dioxide measurement (moles/volume)Ordered By: Frank Silva on 04-04-2022 CO2 [Moles/Vol] 23.6 mmol/L 22.0-30.0 [facility] Serum or plasma urea nitroge n measurement (mass/volume)Ordered By: Frank Silva on 04-04-2022 Urea nitrogen [Mass/Vol] 8 mg/dL 06-09 [facility] Specific gravity Auto test s trip (U) [Rel density]Ordered By: Janette Dior on 04-04-2022 Specific gravity (U) [Rel density] 1.027 1.001-1.[address] [facility] Squamous epithelial cells de tection in urine sediment by light microscopyOrdered By: Janette Dior on 04-04-2022 Epithelial cells.squamous LM Ql (Urine sed) 10-19 [HPF] 0-2 [facility] Troponin I.cardiac [Mass/vol ume] in Serum or Plasma by High sensitivity methodOrdered By: Frank Silva on 04-04-2022 Troponin I.cardiac High sensitivity method [Mass/Vol] 3 pg/mL 0-15 [facility] Urine bacteria detection by automated methodOrdered By: Janette Dior on 04-04-2022 Bacteria Auto Ql (U) None seen None Seen [facility] Urine clarity by refractomet ry automatedOrdered By: Janette Dior on 04-04-2022 Clarity Refractometry automated (U) Cloudy Clear [facility] Urine glucose measurement by automated test strip (mass/volume)Ordered By: Janette Dior on 04-04-2022 Glucose Auto test strip (U) [Mass/Vol] Normal mg/dL Normal [facility] Urine hemoglobin detection b y automated test stripOrdered By: Janette Dior on 04-04-2022 Hemoglobin Auto test strip Ql (U) 2+ Negative [facility] Urine leukocyte esterase det ection by automated test stripOrdered By: Janette Dior on 04-04-2022 Leukocyte esterase Auto test strip Ql (U) Negative Negative [facility] Urine sediment renal epithel ial cell count by microscopy (number/high power field)Ordered By: Janette Dior on 04-04-2022 Epithelial cells.renal LM.HPF (Urine sed) [#/Area] None seen [HPF] 0-1 [facility] Urobilinogen Auto test strip (U) [Mass/Vol]Ordered By: Janette Dior on 04-04-2022 Urobilinogen (U) [Mass/Vol] Normal mg/dL Normal [facility] pH Auto test strip (U)Ordere d By: Janetet Dior on 04-04-2022 pH (U) 6.0 [pH] 5.0-9.0 [facility] HCG,URINEon 04-03-2022 Beta HCG ( test) Ql (U) Negative Normal Negative [facility] Comment on above: Order Comment: poct Performed By: #### H CGU #### [facility] [address] [address] [address] No Panel Informationon 04-03 -[facility] Work Phone: Order Reconciliationon 04-03 Order Reconciliation [...] be shared with your follow-up providers (doctor, fashion journalist, physical therapist, etc.). Follow Up with Dr. Crocker in [address] or operate motor vehicles for 24 hours and while taking narcotic pain me (more content not included)... Normal [facility] Surgical Pathology Depar tmenton 04-03-2022 [facility] Surgical Pathology Department Name LEANDRA FONSECA Pathologist: REBECCA LAN MD Date of Procedure: 04/03/2022 Date Received: 04/04/2022 Date Reported 04/17/2022 Submitting Physician: SLY CROCKER MD Location: [facility] Other External # FINAL DIAGNOSIS A. LEFT ABDOMINAL WALL ENDOMETRIOMA: --ENDOMETRIOSIS INVOLVING SUBCUTANEOUS FIBROVASCULAR AND ADIPOSE TISSUES. Electronically Signed Out By REBECCA LAN MD/MRG1 By the signature on this report, the individual or group listed as making the Final Interpretation/Diagnosis certifies that they have reviewed this case. Diagnostic interpretation performed at [address] [address] Clinical History: Physician Contact Number: [phone] Fixative (A): Formalin Clinical Diagnosis History LEFT [...] fibrous cut surfaces admixed with yellow adipose. House Rn sections are submitted in 10 cassettes. Summary of Cassettes: Specimen Label Site A 1-2 medial tip, full-thickness, bisected 3-4 lateral, full-thickness, bisected 5-7 admissions representative sections of fibrous tissue to closest superior margin 8-10 admissions representative sections of fibrous tissue to closest inferior margin mjr/04/06/2022 [facility] Department of Pathology [id number] [place] [address] Normal [facility] Comment on above: Performed By: #### U [facility] #### [facility] Surgical Pathology Department [address] [place] [address] Urine Teston 04-03 HCG ( test) Ql (U) Negative Negative [facility] Work Phone: COVID-19 Positive/NegativeOr dered By: Sly Crocker on 03-31-2022 SARS-CoV-2 (COVID-19) N gene HIRAM+probe Ql (Resp) Negative Negative [facility] Comment on above: Testing for SARS-CoV -2 by RT-PCR This test was developed and its performance characteristics determined by [employer] (BD) and validated at the [facility]. This test has not been FDA [...] (COVID-19) RNA HIRAM+probe Ql (Unsp spec) N/A [facility] Patient Profile - Preop v3on 03-31-2022 Patient Profile - Preop v3 Patient Profile - Preop: Initial Info: Patient DemographicsName: LEANDRA FONSECA Date: 1990 Address: [address] [place] [address] Primary Phone [phone] Instructions Givenappropriate clothing, bring list of medications, bring responsible adult as the line driver (procedure may be cancelled if no line driver), insurance information, remove jewerly/piercings How to be AddressedAshley Spoken Language PreferredEnglish Source of Informationpatient Stated Reason for AdmissionLeft abdominal wall tumor resection Primary Contact Name and NumberBoyfriend- Deantrae [phone] Medications Brought to Hospitalno General Health: Weight in kg75.4 kilogram(s) Weight in ovh080.2 pound(s) Weight Methodactual (measured) Scale Typestanding Height [...] child(uriah) Living Arrangementshouse Resource/Environmental Concernsnone [facility]ated [facility] Anticipated at Transitionnone Tobacco Use: Tobacco Useno Pre-op Checklist: Arrival [id number] Arrival Time11:16 Procedure Typeabdominal wall tumor resection NPOyes Last Food [id number] 21:00 Last Clear Fluid [id number] 21:00 ID Band On Patientpatient ID (name), [...] Past Medical History, Active Electronic Signatures: Anna Worthington) (Signed 31-Mar-2022 13:12) Authored: Initial Info, General Health, Health Mgmt, Relationship/Environ, Tobacco Use, Additional Information Aviva Galvez) (Signed 03-Apr-2022 11:57) Authored: General Health, Pre-op Checklist, Additional Information Last Updated: 03-Apr-2022 11:57 by Aviva Galvez) Normal [facility] Office Visit (Oncology Surge ry)on 03-24-2022 Follow-up visit Diagnoses/Problems Assessed Abdominal wall mass (589.30) (R22.2) *Orders Abdominal wall mass CORONAVIRUS 2019 RNA BY PCR, SCREEN ASYMPTOMATIC AMBULATORY; Status:Hold For - Specimen/Data Collection,Retrospective By Protocol Authorization; Requested for:[id number]; Abdominal wall mass (619.30) (R22.2) Patient Discussion/Summary Mrs. Fonseca is a [...] with thyroid problems Social history: Lives in [place] with her boyfriend. She has 2 children [...] Kim Isaac; (more content not included)... Normal [employer] Tobacco Screening.on 022 Fall risk assessment a) No falls within the last year [facility] Work Phone: Tobacco use status CPHS b) No [facility] Work Phone: Automated erythrocytes count in urine sediment (number/area)Ordered By: Jim Vega on 03-15-2022 RBC Auto (Urine sed) [#/Area] 5-9 [HPF] 0-4 [facility] Automated leukocytes count i n urine sediment (number/area)Ordered By: Jim Vega on 03-15-2022 WBC Auto (Urine sed) [#/Area] None seen [HPF] 0-4 [facility] Basophils Auto (Bld) [#/Vol] Ordered By: Jim Vega on 03-15-2022 Basophils (Bld) [#/Vol] 0.1 10*3/uL 0.0-0.2 [facility] Basophils/100 WBC Auto (Bld) Ordered By: Jim Vega on 03-15-2022 Basophils/100 WBC (Bld) 0.7 % . [facility] Bilirubin Test strip Ql (U)O rdered By: Jim Vega on 03-15-2022 Bilirubin Ql (U) Negative Negative [facility] Blood hemoglobin measurement (mass/volume)Ordered By: Jim Vega on 03-15-2022 Hemoglobin (Bld) [Mass/Vol] 9.9 g/dL 11.8-15.4 [facility] Blood leukocytes automated c ount (number/volume)Ordered By: Jim eVga on 03-15-2022 WBC (Bld) [#/Vol] 8.3 10*3/uL 4.5-11.0 [facility] Body fluid albumin measureme nt (mass/volume)Ordered By: Jim Vega on 03-15-2022 Albumin (Body fld) [Mass/Vol] 3.7 g/dL 3.2-5.5 [facility] Color Auto (U)Ordered By: Narinder Vega on 03-15-2022 Color (U) Yellow Yellow [facility] Creatinine and Glomerular fi ltration rate.predicted panel (S/P/Bld)Ordered By: Jim Vega on 03-15-2022 Creatinine [Mass/Vol] 0.85 mg/dL 0.44-1.03 [facility] Eosinophils Auto (Bld) [#/Vo l]Ordered By: Jim Vega on 03-15-2022 Eosinophils (Bld) [#/Vol] 0.2 10*3/uL 0.0-0.45 [facility] Eosinophils/100 WBC Auto (Bl d)Ordered By: Jim Vega on 03-15-2022 Eosinophils/100 WBC (Bld) 2.0 % . [facility] Erythrocyte distribution wid th Auto (RBC) [Ratio]Ordered By: Jim Vega on 03-15-2022 Erythrocyte distribution width (RBC) [Ratio] 14.4 % 11.9-15.3 [facility] Estimated glomerular filtrat ion rate (GFR) non- AmericanOrdered By: Jim Vega on 03-15-2022 GFR/1.73 sq M.predicted among non-blacks MDRD (S/P/Bld) [Vol rate/Area] > 60 mL/Min [facility] Globulin Calc (S) [Mass/Vol] Ordered By: Jim Vega on 03-15-2022 Globulin (S) [Mass/Vol] 3.6 g/dL [facility] HCG ( test) IA.rapi d Ql (U)Ordered By: Jim Vega on 03-15-2022 HCG ( test) Ql (U) Negative [facility] Hematocrit Auto (Bld) [Volum e fraction]Ordered By: Jim Vega on 03-15-2022 Hematocrit (Bld) [Volume fraction] 31.8 % 34.0-46.4 [facility] Ketones Auto test strip (U) [Mass/Vol]Ordered By: Jim Vega on 03-15-2022 Ketones (U) [Mass/Vol] Negative Negative [facility] Laboratory - Chemistry and C hemistry - challengeOrdered By: Jim Vega on 03-15-2022 Lipase [Catalytic activity/Vol] 53.0 U/L 22-51 [facility] Natriuretic peptide B (Bld) [Mass/Vol] 13.0 pg/mL 5-100 [facility] Laboratory - Hematology and Cell countsOrdered By: Jim Vega on 03-15-2022 Nucleated RBC/100 WBC (Bld) [Ratio] 0.0 % 0-0.5 [facility] Laboratory - UrinalysisOrder ed By: Jim Vega on 03-15-2022 Hyaline casts LM Ql (Urine sed) None seen [LPF] 0-8 [facility] Lymphocytes Auto (Bld) [#/Vo l]Ordered By: Jim Vega on 03-15-2022 Lymphocytes (Bld) [#/Vol] 1.9 10*3/uL 1.00-4.8 [facility] Lymphocytes/100 WBC Auto (Bl d)Ordered By: Jim Vega on 03-15-2022 Lymphocytes/100 WBC (Bld) 22.9 % . [facility] MCH Auto (RBC) [Entitic mass ]Ordered By: Jim Vega on 03-15-2022 MCH (RBC) [Entitic mass] 22.2 pg 24.7-34.3 [facility] MCHC Auto (RBC) [Mass/Vol]Or dered By: Jim Vega on 03-15-2022 MCHC (RBC) [Mass/Vol] 31.2 g/dL 32.0-35.0 [facility] MCV Auto (RBC) [Entitic vol] Ordered By: Jim Vega on 03-15-2022 MCV (RBC) [Entitic vol] 71.1 fL 80-100 [facility] Monocytes Auto (Bld) [#/Vol] Ordered By: Jim Vega on 03-15-2022 Monocytes (Bld) [#/Vol] 0.6 10*3/uL 0.0-0.8 [facility] Monocytes/100 WBC Auto (Bld) Ordered By: Jim Vega on 03-15-2022 Monocytes/100 WBC (Bld) 6.9 % . [facility] Neutrophils Auto (Bld) [#/Vo l]Ordered By: Jim Vega on 03-15-2022 Neutrophils (Bld) [#/Vol] 5.6 10*3/uL 1.8-7.7 [facility] Neutrophils/100 WBC Auto (Bl d)Ordered By: Jim Vega on 03-15-2022 Neutrophils/100 WBC (Bld) 67.5 % . [facility] Nitrite Test strip Ql (U)Ord ered By: Jim Vega on 03-15-2022 Nitrite Ql (U) Negative Negative [facility] No Panel InformationOrdered By: Jim Vega on 03-15-2022 Estimated GFR () > 60 mL/Min [facility] Comment on above: GFR estimated refere nce range: According to KDOQI guidelines, <60 ml/min/1.73m2 is sufficient to diagnose a patient with chronic kidney disease. Pharmacy Creatinine Clearance (Chem 93.64 [facility] Platelet mean volume Auto (B ld) [Entitic vol]Ordered By: Jim Vega on 03-15-2022 Platelet mean volume (Bld) [Entitic vol] 9.4 fL 6.3-10.7 [facility] Platelets Auto (Bld) [#/Vol] Ordered By: Jim Vega on 03-15-2022 Platelets (Bld) [#/Vol] 254 10*3/uL 150-450 [facility] Protein Auto test strip (U) [Mass/Vol]Ordered By: Jim Vega on 03-15-2022 Protein (U) [Mass/Vol] Negative Negative [facility] Protein [Mass/volume] in Ser um or PlasmaOrdered By: Jim Vega on 03-15-2022 Protein [Mass/Vol] 7.3 g/dL 6.1-7.9 [facility] RBC Auto (Bld) [#/Vol]Ordere d By: Jim Vega on 03-15-2022 RBC (Bld) [#/Vol] 4.47 10*6/uL 3.60-5.[address] [facility] Serum or plasma alanine ekene otransferase measurement without P-5'-P (enzymatic activiOrdered By: Jim Vega on 03-15-2022 ALT No additional P-5'-P [Catalytic activity/Vol] 14 U/L 10-60 [facility] Serum or plasma albumin/glob ulin mass ratioOrdered By: Jim Vega on 03-15-2022 Albumin/Globulin [Mass ratio] 1.0 {ratio} [facility] Serum or plasma alkaline jared sphatase measurement (enzymatic activity/volume)Ordered By: Jim Vega on 03-15-2022 ALP [Catalytic activity/Vol] 45 U/L 32-92 [facility] Serum or plasma aspartate am inotransferase measurement (enzymatic activity/volume)Ordered By: Jim Vega on 03-15-2022 AST [Catalytic activity/Vol] 17 U/L 10-42 [facility] Serum or plasma calcium marychuy urement (mass/volume)Ordered By: Jim Vega on 03-15-2022 Calcium [Mass/Vol] 9.4 mg/dL 8.2-10.2 [facility] Serum or plasma chloride nemo surement (moles/volume)Ordered By: Jim Vega on 03-15-2022 Chloride [Moles/Vol] 102 mmol/L 95-114 [facility] Serum or plasma glucose marychuy urement (mass/volume)Ordered By: Jim Vega on 03-15-2022 Glucose [Mass/Vol] 85 mg/dL 70-100 [facility] Comment on above: ADA recommended refe rence range Random Glucose Reference Range is dependent on time and content of last meal. Glucose of more than 200 mg/dL in a nonstressed, ambulatory subject supports the diagnosis of Diabetes Mellitus. Serum or plasma potassium me asurement (moles/volume)Ordered By: Jim Vega on 03-15-2022 Potassium [Moles/Vol] 4.2 mmol/L 3.5-5.1 [facility] Serum or plasma sodium measu rement (moles/volume)Ordered By: Jim Vega on 03-15-2022 Sodium [Moles/Vol] 136 mmol/L 136-146 [facility] Serum or plasma total biliru bin measurement (mass/volume)Ordered By: Jim Vega on 03-15-2022 Bilirubin [Mass/Vol] 0.1 mg/dL 0.3-1.2 [facility] Serum or plasma total carbon dioxide measurement (moles/volume)Ordered By: Jim Vega on 03-15-2022 CO2 [Moles/Vol] 26.3 mmol/L 22.0-30.0 [facility] Serum or plasma urea nitroge n measurement (mass/volume)Ordered By: Jim Vega on 03-15-2022 Urea nitrogen [Mass/Vol] 9 mg/dL - [facility] Specific gravity Auto test s trip (U) [Rel density]Ordered By: Jim Vega on 03-15-2022 Specific gravity (U) [Rel density] 1.010 1.001-1.[address] [facility] Squamous epithelial cells de tection in urine sediment by light microscopyOrdered By: Jim Vega on 03-15-2022 Epithelial cells.squamous LM Ql (Urine sed) 0-1 [HPF] 0-2 [facility] Troponin I.cardiac [Mass/vol ume] in Serum or Plasma by High sensitivity methodOrdered By: Jim Vega on 03-15-2022 Troponin I.cardiac High sensitivity method [Mass/Vol] 3 pg/mL 0-15 [facility] Urine bacteria detection by automated methodOrdered By: Jim Vega on 03-15-2022 Bacteria Auto Ql (U) None seen None Seen [facility] Urine clarity by refractomet ry automatedOrdered By: Jim Vega on 03-15-2022 Clarity Refractometry automated (U) Clear Clear [facility] Urine glucose measurement by automated test strip (mass/volume)Ordered By: Jim Vega on 03-15-2022 Glucose Auto test strip (U) [Mass/Vol] Normal mg/dL Normal [facility] Urine hemoglobin detection b y automated test stripOrdered By: Jim Vega on 03-15-2022 Hemoglobin Auto test strip Ql (U) Trace Negative [facility] Urine leukocyte esterase det ection by automated test stripOrdered By: Jim Vega on 03-15-2022 Leukocyte esterase Auto test strip Ql (U) Negative Negative [facility] Urobilinogen Auto test strip (U) [Mass/Vol]Ordered By: Jim Vega on 03-15-2022 Urobilinogen (U) [Mass/Vol] Normal mg/dL Normal [facility] pH Auto test strip (U)Ordere d By: Jim Vega on 03-15-2022 pH (U) 7.5 [pH] 5.0-9.0 [facility] US FINE NEEDLE ASP EXPon US FINE NEEDLE ASP EXP Begin Addendu m #1 COLLECTED DATE/TIME: 02/20/2022 13:18 EST Final Diagnosis Report for THE LINGLE, [place] (A/B) MASS NEAR SCAR; FINE NEEDLE [...] (FNA). 2. Pathology results are pending. Normal US SINGLE QUAD LT LOWERon US SINGLE [...] by: KALPESH FOWLER Date: 2022-02-02 09:[address] ABD/PELVIS WO CONon 01-11 CT ABD/PELVIS [...] by: JENN GREWAL Date: 2022-01-11 11:40 Normal [facility] Vital Signs Date Time Vital Sign Value Performing Clinician Facility 07-14-2024 15:03-0400 Diastolic blood pressure 75 mm[Hg] BETTY Lopez Work Phone: [facility] 07-14-2024 15:03-0400 Heart rate 71 /min BETTY Lopez Work Phone: [facility] 07-14-2024 15:03-0400 Respiratory rate 18 /min BETTY Lopez Work Phone: [facility] 07-14-2024 15:03-0400 SaO2% (BldA) [Mass fraction] 99 % BETTY Lopez Work Phone: [facility] 07-14-2024 15:03-0400 Systolic blood pressure 114 mm[Hg] INSTRUMENT ROOM TECHNICIAN Yudelka Lopez Work Phone: [facility] 07-14-2024 12:23-0400 Body height 157.48 cm BETTY Lopez Work Phone: [facility] 07-14-2024 12:17-0400 Body height 157.48 cm INSTRUMENT ROOM TECHNICIAN Yudelka Lopez Work Phone: [facility] 07-14-2024 12:17-0400 Body temperature 98.4 [degF] INSTRUMENT ROOM TECHNICIAN Yudelka Lopez Work Phone: [facility] 07-14-2024 12:17-0400 Body weight 74 kg BETTY Lopez Work Phone: [facility] 07-14-2024 11:43-0400 Body height 157.48 cm [facility] 07-14-2024 11:43-0400 Body mass index (BMI) [Ratio] 29 kg/m2 [facility] 07-14-2024 11:43-0400 Body temperature 98.2 [degF] [facility] 07-14-2024 11:43-0400 Body weight 72.12 kg [facility] 07-14-2024 11:43-0400 Diastolic blood pressure 76 mm[Hg] [facility] 07-14-2024 11:43-0400 Heart rate 97 /min [facility] 07-14-2024 11:43-0400 SaO2% (BldA) [Mass fraction] 99 % [facility] 07-14-2024 11:43-0400 Systolic blood pressure 114 mm[Hg] [facility] 09-28-2023 14:34-0500 Body weight 73.93 kg INSTRUMENT ROOM TECHNICIAN Yudelka Lopez Work Phone: [facility] 09-28-2023 14:34-0500 Diastolic blood pressure 79 mm[Hg] INSTRUMENT ROOM TECHNICIAN Yudelka Lopez Work Phone: [facility] 09-28-2023 14:34-0500 Heart rate 66 /min BETTY Lopez Work Phone: [facility] 09-28-2023 14:34-0500 Respiratory rate 20 /min BETTY Lopez Work Phone: [facility] 09-28-2023 14:34-0500 SaO2% (BldA) [Mass fraction] 100 % BETTY Lopez Work Phone: [facility] 09-28-2023 14:34-0500 Systolic blood pressure 119 mm[Hg] BETTY Lopez Work Phone: [facility] 06-27-2023 10:33-0400 Body height 157.48 cm BETTY Lopez Work Phone: [facility] 06-27-2023 10:33-0400 Body temperature 97.7 [degF] BETTY Lopez Work Phone: [facility] 06-27-2023 10:33-0400 Body weight 72.52 kg BETTY Lopez Work Phone: [facility] 06-27-2023 10:33-0400 Diastolic blood pressure 80 mm[Hg] BETTY Lopez Work Phone: [facility] 06-27-2023 10:33-0400 Heart rate 80 /min BETTY Lopez Work Phone: [facility] 06-27-2023 10:33-0400 Respiratory rate 20 /min BETTY Lopez Work Phone: [facility] 06-27-2023 10:33-0400 SaO2% (BldA) [Mass fraction] 100 % BETTY Lopez Work Phone: [facility] 06-27-2023 10:33-0400 Systolic blood pressure 120 mm[Hg] BETTY Lopez Work Phone: [facility] 06-04-2023 18:15-0400 Body height 157.48 cm Marvin Fontenot Other [employer] Other 06-04-2023 18:15-0400 Body mass index (BMI) [Ratio] 30.36 kg/m2 Marvin Fontenot Other [employer] Other 06-04-2023 18:15-0400 Body temperature 98.5 [degF] Marvin Fontenot Other [employer] Other 06-04-2023 18:15-0400 Body weight 75.3 kg Marvin Fontenot Other [employer] Other 06-04-2023 18:15-0400 Respiratory rate 20 /min Marvin Fontenot Other [employer] Other 06-04-2023 18:15-0400 SaO2% (BldA) [Mass fraction] 98 % Marvin Fontenot Other [employer] Other 03-21-2023 15:04-0400 Body weight 73.16 kg INSTRUMENT ROOM TECHNICIAN Yudelka Lopez Work Phone: [facility] 03-21-2023 15:04-0400 Diastolic blood pressure 74 mm[Hg] INSTRUMENT ROOM TECHNICIAN Yudelka Lopez Work Phone: [facility] 03-21-2023 15:04-0400 Heart rate 109 /min INSTRUMENT ROOM TECHNICIANFamilia Lopez Work Phone: [facility] 03-21-2023 15:04-0400 Respiratory rate 20 /min INSTRUMENT ROOM TECHNICIAN Yudelka Lopez Work Phone: [facility] 03-21-2023 15:04-0400 SaO2% (BldA) [Mass fraction] 99 % INSTRUMENT ROOM TECHNICIAN Yudelka Lopez Work Phone: [facility] 03-21-2023 15:04-0400 Systolic blood pressure 134 mm[Hg] BETTY Lopez Work Phone: [facility] 02-07-2023 10:42-0400 Diastolic blood pressure 70 mm[Hg] INSTRUMENT ROOM TECHNICIAN Yudelka Lopez Work Phone: [facility] 02-07-2023 10:42-0400 Heart rate 82 /min INSTRUMENT ROOM TECHNICIAN Yudelka Lopez Work Phone: [facility] 02-07-2023 10:42-0400 Respiratory rate 18 /min INSTRUMENT ROOM TECHNICIAN Yudelka Lopez Work Phone: [facility] 02-07-2023 10:42-0400 SaO2% (BldA) [Mass fraction] 97 % INSTRUMENT ROOM TECHNICIAN Yudelka Lopez Work Phone: [facility] 02-07-2023 10:42-0400 Systolic blood pressure 118 mm[Hg] INSTRUMENT ROOM TECHNICIAN Yudelka Lopez Work Phone: [facility] 02-07-2023 08:15-0400 Body temperature 98 [degF] INSTRUMENT ROOM TECHNICIAN Yudelka Lopez Work Phone: [facility] 02-06-2023 10:57-0400 Diastolic blood pressure 54 mm[Hg] INSTRUMENT ROOM TECHNICIAN Yudelka Lopez Work Phone: [facility] 02-06-2023 10:57-0400 Heart rate 66 /min INSTRUMENT ROOM TECHNICIAN Yudelka John Work Phone: [facility] 02-06-2023 10:57-0400 Respiratory rate 18 /min INSTRUMENT ROOM TECHNICIAN Yudelka Lopez Work Phone: [facility] 02-06-2023 10:57-0400 SaO2% (BldA) [Mass fraction] 99 % INSTRUMENT ROOM TECHNICIAN Yudelka Lopez Work Phone: [facility] 02-06-2023 10:57-0400 Systolic blood pressure 113 mm[Hg] INSTRUMENT ROOM TECHNICIAN Yudelka Lopez Work Phone: [facility] 02-06-2023 09:14-0400 Body height 160.02 cm INSTRUMENT ROOM TECHNICIAN Yudelka Lopez Work Phone: [facility] 02-06-2023 09:14-0400 Body temperature 98.1 [degF] INSTRUMENT ROOM TECHNICIAN Yudelka John Work Phone: [facility] 02-06-2023 09:14-0400 Body weight 73 kg BETTY Lopez Work Phone: [facility] 01-25-2023 12:38-0400 Diastolic blood pressure 74 mm[Hg] BETTY Lopez Work Phone: [facility] 01-25-2023 12:38-0400 Heart rate 72 /min BETTY Lopez Work Phone: [facility] 01-25-2023 12:38-0400 Respiratory rate 18 /min BETTY Lopez Work Phone: [facility] 01-25-2023 12:38-0400 SaO2% (BldA) [Mass fraction] 100 % BETTY Lopez Work Phone: [facility] 01-25-2023 12:38-0400 Systolic blood pressure 101 mm[Hg] BETTY Lopez Work Phone: [facility] 01-25-2023 08:19-0400 Body temperature 98.3 [degF] BETTY Lopez Work Phone: [facility] 01-02-2023 10:31-0400 Body weight 75.2 kg BETTY Lopez Work Phone: [facility] 12-21-2022 10:00-0400 Body height 157.48 cm Imad Asaad Other [facility] [employer] Other 12-21-2022 10:00-0400 Body mass index (BMI) [Ratio] 30.36 kg/m2 Imad Asaad Other [employer] Other 12-21-2022 10:00-0400 Body weight 75.3 kg Imad Asaad Other [place] [employer] Other 12-21-2022 10:00-0400 Diastolic blood pressure 68 mm[Hg] Imad Asaad Other [facility] [employer] Other 12-21-2022 10:00-0400 Systolic blood pressure 115 mm[Hg] Imad Asaad Other [facility] [employer] Other 11-28-2022 20:38-0400 Body height 157.48 cm INSTRUMENT ROOM TECHNICIAN Yudelka Lopez Work Phone: [facility] 11-28-2022 20:38-0400 Body temperature 97.9 [degF] INSTRUMENT ROOM TECHNICIAN Yudelka Lopez Work Phone: [facility] 11-28-2022 20:38-0400 Body weight 75.2 kg INSTRUMENT ROOM TECHNICIAN Yudelka Lopez Work Phone: [facility] 11-28-2022 20:38-0400 Diastolic blood pressure 72 mm[Hg] INSTRUMENT ROOM TECHNICIAN Yudelka Lopez Work Phone: [facility] 11-28-2022 20:38-0400 Heart rate 78 /min INSTRUMENT ROOM TECHNICIAN Yudelka Lopez Work Phone: [facility] 11-28-2022 20:38-0400 Respiratory rate 18 /min INSTRUMENT ROOM TECHNICIAN Yudelka Lopez Work Phone: [facility] 11-28-2022 20:38-0400 SaO2% (BldA) [Mass fraction] 100 % INSTRUMENT ROOM TECHNICIAN Yudelka Lopez Work Phone: [facility] 11-28-2022 20:38-0400 Systolic blood pressure 140 mm[Hg] INSTRUMENT ROOM TECHNICIAN Yudelka Lopez Work Phone: [facility] 11-01-2022 12:30-0500 Diastolic blood pressure 66 mm[Hg] INSTRUMENT ROOM TECHNICIAN Yudelka Lopez Work Phone: [facility] 11-01-2022 12:30-0500 Heart rate 60 /min INSTRUMENT ROOM TECHNICIAN uYdelka Lopez Work Phone: [facility] 11-01-2022 12:30-0500 Respiratory rate 18 /min INSTRUMENT ROOM TECHNICIAN Yudelka Lopez Work Phone: [facility] 11-01-2022 12:30-0500 SaO2% (BldA) [Mass fraction] 100 % INSTRUMENT ROOM TECHNICIAN Yudelka Lopez Work Phone: [facility] 11-01-2022 12:30-0500 Systolic blood pressure 108 mm[Hg] INSTRUMENT ROOM TECHNICIAN Yudelka Lopez Work Phone: [facility] 11-01-2022 10:17-0500 Body temperature 98.9 [degF] INSTRUMENT ROOM TECHNICIAN Yudelka Lopez Work Phone: [facility] 10-10-2022 15:05-0500 Diastolic blood pressure 62 mm[Hg] INSTRUMENT ROOM TECHNICIAN Yudelka Lopez Work Phone: [facility] 10-10-2022 15:05-0500 Heart rate 68 /min INSTRUMENT ROOM TECHNICIAN Yudelka Lopez Work Phone: [facility] 10-10-2022 15:05-0500 Respiratory rate 16 /min INSTRUMENT ROOM TECHNICIAN Yudelka Lopez Work Phone: [facility] 10-10-2022 15:05-0500 Systolic blood pressure 111 mm[Hg] INSTRUMENT ROOM TECHNICIAN Yudelka Lopez Work Phone: [facility] 10-10-2022 13:05-0500 Body temperature 98.3 [degF] INSTRUMENT ROOM TECHNICIAN Yudelka Lopez Work Phone: [facility] 10-10-2022 13:05-0500 SaO2% (BldA) [Mass fraction] 100 % INSTRUMENT ROOM TECHNICIAN Yudelka Lopez Work Phone: [facility] 10-03-2022 10:46-0500 Body weight 72.41 kg INSTRUMENT ROOM TECHNICIAN Yudelka Lopez Work Phone: [facility] 10-03-2022 10:33-0500 Body height 157.48 cm INSTRUMENT ROOM TECHNICIAN Yudelka Lopez Work Phone: [facility] 09-21-2022 14:02-0500 Diastolic blood pressure 54 mm[Hg] INSTRUMENT ROOM TECHNICIAN Yudelka Lopez Work Phone: [facility] 01-05-2023 14:02-0500 Heart rate 72 /min INSTRUMENT ROOM TECHNICIAN Yudelka Lopez Work Phone: [facility] 09-21-2022 14:02-0500 Respiratory rate 18 /min INSTRUMENT ROOM TECHNICIAN Yudelka Lopez Work Phone: [facility] 09-21-2022 14:02-0500 SaO2% (BldA) [Mass fraction] 100 % INSTRUMENT ROOM TECHNICIAN Yudelka Lopez Work Phone: [facility] 09-21-2022 14:02-0500 Systolic blood pressure 105 mm[Hg] INSTRUMENT ROOM TECHNICIAN Yudelka Lopez Work Phone: [facility] 09-21-2022 12:05-0500 Body height 157.48 cm INSTRUMENT ROOM TECHNICIAN Yudelka Lopez Work Phone: [facility] 09-21-2022 12:05-0500 Body temperature 98.2 [degF] INSTRUMENT ROOM TECHNICIAN Yudelka Lopez Work Phone: [facility] 09-21-2022 12:05-0500 Body weight 71.6 kg INSTRUMENT ROOM TECHNICIAN Yudelka Lopez Work Phone: [facility] 07-04-2022 20:47-0400 Body temperature 98.2 [degF] INSTRUMENT ROOM TECHNICIAN Yudelka Lopez Work Phone: [facility] 07-04-2022 20:47-0400 Diastolic blood pressure 72 mm[Hg] INSTRUMENT ROOM TECHNICIAN Yudelka Lopez Work Phone: [facility] 07-04-2022 20:47-0400 Heart rate 83 /min INSTRUMENT ROOM TECHNICIAN Yudelka Lopez Work Phone: [facility] 07-04-2022 20:47-0400 Respiratory rate 18 /min INSTRUMENT ROOM TECHNICIAN Yudelka Lopez Work Phone: [facility] 07-04-2022 20:47-0400 SaO2% (BldA) [Mass fraction] 99 % INSTRUMENT ROOM TECHNICIAN Yudelka Lopez Work Phone: [facility] 07-04-2022 20:47-0400 Systolic blood pressure 119 mm[Hg] INSTRUMENT ROOM TECHNICIAN Yudelka Lopez Work Phone: [facility] 07-04-2022 18:45-0400 Body height 160.02 cm INSTRUMENT ROOM TECHNICIANFamilia Lopez Work Phone: [facility] 07-04-2022 18:45-0400 Body weight 73.6 kg INSTRUMENT ROOM TECHNICIANFamilia Lopez Work Phone: [facility] 06-01-2022 02:30-0400 Diastolic blood pressure 85 mm[Hg] INSTRUMENT ROOM TECHNICIANFamilia Jha John Work Phone: [facility] 06-01-2022 02:30-0400 Heart rate 71 /min INSTRUMENT ROOM TECHNICIAN Yudelka Lopez Work Phone: [facility] 06-01-2022 02:30-0400 Respiratory rate 16 /min INSTRUMENT ROOM TECHNICIAN Yudelka Lopez Work Phone: [facility] 06-01-2022 02:30-0400 SaO2% (BldA) [Mass fraction] 100 % INSTRUMENT ROOM TECHNICIAN Yudelka Lopez Work Phone: [facility] 06-01-2022 02:30-0400 Systolic blood pressure 111 mm[Hg] INSTRUMENT ROOM TECHNICIANFamilia Lopez Work Phone: [facility] 06-01-2022 01:29-0400 Body height 160.02 cm INSTRUMENT ROOM TECHNICIAN Yudelka Lopez Work Phone: [facility] 06-01-2022 01:29-0400 Body temperature 98 [degF] INSTRUMENT ROOM TECHNICIANFamilia Jha John Work Phone: [facility] 06-01-2022 01:29-0400 Body weight 73.48 kg INSTRUMENT ROOM TECHNICIAN Yudelka Lopez Work Phone: [facility] 04-07-2022 12:02-0400 Body height 157.81 cm Yudelka Lopez Work Phone: [facility] Work Phone: 04-07-2022 12:02-0400 Body mass index (BMI) [Ratio] 30.42 kg/m2 Yudekla Lopez Work Phone: [facility] Work Phone: 04-07-2022 12:02-0400 Body surface area Derived from formula 1.77 m2 Yudelka Lopez Work Phone: [facility] Work Phone: 04-07-2022 12:02-0400 Body temperature 97.7 [degF] Yudelka Sonia Lopez Work Phone: [facility] Work Phone: 04-07-2022 12:02-0400 Body weight 75.75 kg Yudelka Sonia Lopez Work Phone: [facility] Work Phone: 04-07-2022 12:02-0400 Diastolic blood pressure 66 mm[Hg] Yudelka Sonia Lopez Work Phone: [facility] Work Phone: 04-07-2022 12:02-0400 Heart rate 73 /min Yudelka Sonia Lopez Work Phone: [facility] Work Phone: 04-07-2022 12:02-0400 Respiratory rate 16 /min Yudelka Lopez Work Phone: [facility] Work Phone: 04-07-2022 12:02-0400 SaO2% (BldA) [Mass fraction] 100 % Yudelka Sonia Lopez Work Phone: [facility] Work Phone: 04-07-2022 12:02-0400 Systolic blood pressure 137 mm[Hg] Yudelka Scott John Work Phone: [facility] Work Phone: 04-07-2022 12:02-0400 0 1 Yudelka Scott John Work Phone: [facility] Work Phone: Comment on above: [employer] 04-05-2022 00:01-0400 Diastolic blood pressure 63 mm[Hg] BETTY Lopez Work Phone: [facility] 04-05-2022 00:01-0400 Heart rate 59 /min BETTY Lopez Work Phone: [facility] 04-05-2022 00:01-0400 Respiratory rate 20 /min BETTY Lopez Work Phone: [facility] 04-05-2022 00:01-0400 SaO2% (BldA) [Mass fraction] 100 % INSTRUMENT ROOM TECHNICIANFamilia Lopez Work Phone: [facility] 04-05-2022 00:01-0400 Systolic blood pressure 117 mm[Hg] BETTY Lopez Work Phone: [facility] 04-04-2022 17:01-0400 Body height 157.48 cm BETTY Lopez Work Phone: [facility] 04-04-2022 17:01-0400 Body mass index (BMI) [Ratio] 30.4 kg/m2 BETTY Lopez Work Phone: [facility] 04-04-2022 17:01-0400 Body temperature 98.7 [degF] BETTY Lopez Work Phone: [facility] 04-04-2022 17:01-0400 Body weight 75.6 kg BETTY Lopez Work Phone: [facility] 03-24-2022 11:38-0400 Body height 157.81 cm Unknown Unknown MS-Wqcvzfnoy-Vuy dman Work Phone: 03-24-2022 11:38-0400 Body mass index (BMI) [Ratio] 30.08 kg/m2 Unknown Unknown XJ-Dwmzfotoa-Zotvmrm Work Phone: 03-24-2022 11:38-0400 Body surface area Derived from formula 1.76 m2 Unknown Unknown AA-Ijsljafnm-Vvpddla Work Phone: 03-24-2022 11:38-0400 Body temperature 98.24 [degF] Unknown Unknown JS-Iyjgbpsfc-Ch idman Work Phone: 03-24-2022 11:38-0400 Body weight 74.9 kg Unknown Unknown MR-Tzdudamgy-Grd dman Work Phone: 03-24-2022 11:38-0400 Diastolic blood pressure 78 mm[Hg] Unknown Unknown WA-Kxqrqqzkr-Begjnpz Work Phone: 03-24-2022 11:38-0400 Heart rate 82 /min Unknown Unknown NZ-Juykmbwps-Vlw dman Work Phone: 03-24-2022 11:38-0400 Respiratory rate 16 /min Unknown Unknown EJ-Rhcbpgbhs-Hq idman Work Phone: 03-24-2022 11:38-0400 SaO2% (BldA) [Mass fraction] 100 % Unknown Unknown LK-Spgabdnam-Dpcahej Work Phone: 03-24-2022 11:38-0400 Systolic blood pressure 130 mm[Hg] Unknown Unknown EQ-Txgwqvjhb-Zorsobb Work Phone: 03-24-2022 11:38-0400 6 1 Unknown Unknown EJ-Bptdzutmd-Sor dman Work Phone: Comment on above: [employer] 03-15-2022 21:05-0400 Diastolic blood pressure 67 mm[Hg] BETTY Lopez Work Phone: [facility] 03-15-2022 21:05-0400 Heart rate 72 /min BETTY Lopez Work Phone: [facility] 03-15-2022 21:05-0400 Respiratory rate 18 /min BETTY Lopez Work Phone: [facility] 03-15-2022 21:05-0400 SaO2% (BldA) [Mass fraction] 100 % BETTY Lopez Work Phone: [facility] 03-15-2022 21:05-0400 Systolic blood pressure 127 mm[Hg] BETTY Lopez Work Phone: [facility] 03-15-2022 19:22-0400 Body height 157.48 cm INSTRUMENT ROOM TECHNICIANFamilia Lopez Work Phone: [facility] 03-15-2022 19:22-0400 Body mass index (BMI) [Ratio] 30.9 kg/m2 INSTRUMENT ROOM TECHNICIANFamilia Lopez Work Phone: [facility] 03-15-2022 19:22-0400 Body temperature 98.6 [degF] INSTRUMENT ROOM TECHNICIANFamilia Lopez Work Phone: [facility] 03-15-2022 19:22-0400 Body weight 76.7 kg INSTRUMENT ROOM TECHNICIANFamilia Lopez Work Phone: [facility] 03-04-2022 01:04-0400 Body height 157.48 cm BETTY Lopez Work Phone: [facility] 03-04-2022 01:04-0400 Body mass index (BMI) [Ratio] 30.4 kg/m2 INSTRUMENT ROOM TECHNICIANFamilia Lopez Work Phone: [facility] 03-04-2022 01:04-0400 Body weight 75.55 kg BETTY Lopez Work Phone: [facility] 03-04-2022 01:01-0400 Body temperature 98.1 [degF] BETTY Lopez Work Phone: [facility] 03-04-2022 01:01-0400 Diastolic blood pressure 80 mm[Hg] INSTRUMENT ROOM TECHNICIAN Yudelka Lopez Work Phone: [facility] 03-04-2022 01:01-0400 Heart rate 81 /min INSTRUMENT ROOM TECHNICIAN Yudelka Lopez Work Phone: [facility] 03-04-2022 01:01-0400 Respiratory rate 18 /min BETTY Lopez Work Phone: [facility] 03-04-2022 01:01-0400 SaO2% (BldA) [Mass fraction] 97 % INSTRUMENT ROOM TECHNICIAN Yudelka Lopez Work Phone: [facility] 03-04-2022 01: Systolic blood pressure 129 mm[Hg] BETTY Lopez Work Phone: [facility] Encounters Encounter Date Encounter Type Care Provider Facility Start: 07-14-2024 End: 07-14-2024 Emergency department patient visit BETTY Lopez Work Phone: [facility] Work Phone: Start: 07-14-2024 End: 07-14-2024 ambulatory [facility] Work Phone: Start: 07-14-2024 End: 07-14-2024 Patient encounter procedure [facility] [place] Work Phone: Start: 02-21-2024 End: 02-21-2024 Emergency department patient visit [facility] Start: 02-21-2024 Encounter for gynecological examination (general) (routine) without abnormal findings [facility] Start: 02-19-2024 End: 02-19-2024 ambulatory MALCOLM ODILIA Not Available Start: 01-10-2024 End: 01-10-2024 ambulatory MALCOLM ODILIA Not Available Start: 12-10-2023 End: 12-11-2023 ambulatory Malagon Talal Sarmini Facility:[facility] Start: 12-10-2023 End: 12-10-2023 Patient encounter procedure Malagon Talal Sarmini [facility] Start: 11-27-2023 End: 11-27-2023 ambulatory MALCOLM ODILIA Not Available Start: 11-24-2023 End: 11-24-2023 Emergency department patient visit Yudelka Lopez Facility:[facility] Start: 11-13-2023 End: 11-13-2023 Emergency department patient visit Yudelka Lopez Facility:[facility] Start: 09-28-2023 End: 09-28-2023 ambulatory INSTRUMENT ROOM TECHNICIAN Yudelka Lopez Work Phone: [facility] Work Phone: Start: 09-28-2023 End: 09-28-2023 Registered Recurring BETTY Lopez Work Phone: [facility] Work Phone: Start: 09-27-2023 End: 09-27-2023 ambulatory BETTY Lopez Work Phone: [facility] Work Phone: Start: 09-27-2023 End: 09-27-2023 Departed Referred BETTY Lopez [facility] Start: 09-27-2023 Registered Recurring BETTY east Lopez Work Phone: [facility] Work Phone: Start: 06-27-2023 End: 06-27-2023 ambulatory BETTY Lopez Work Phone: [facility] Work Phone: Start: 06-27-2023 End: 06-27-2023 Registered Recurring BETTY Lopez Work Phone: [facility] Work Phone: Start: 06-14-2023 Registered Recurring BETTY Lopez Work Phone: [facility] Work Phone: Start: 06-14-2023 End: 06-14-2023 ambulatory BETTY Lopez Work Phone: [facility] Work Phone: Start: 06-14-2023 End: 06-14-2023 Patient encounter procedure BETTY Lopez Work Phone: [facility] [place] Work Phone: Start: 06-04-2023 End: 06-04-2023 ambulatory Marvin Po Other [place] [employer] Other Start: 06-04-2023 Office outpatient vi sit 15 minutes Marvin Fontenot [facility] [address] Start: 04-24-2023 End: 04-25-2023 ambulatory Kelly Hough Facility:[facility] Start: 04-24-2023 End: 04-24-2023 Patient encounter procedure Lex Elizabeth [facility] [place] Start: 04-03-2023 ambulatory Lex Elizabeth Facilit y:[facility] Start: 03-21-2023 End: 03-21-2023 ambulatory INSTRUMENT ROOM TECHNICIANFamilia Lopez Work Phone: [facility] Work Phone: Start: 03-21-2023 End: 03-21-2023 Registered Recurring BETTY Lopez Work Phone: [facility] Work Phone: Start: 03-14-2023 End: 03-14-2023 ambulatory INSTRUMENT ROOM TECHNICIANFamilia Lopez Work Phone: [facility] Work Phone: Start: 03-14-2023 End: 03-14-2023 Patient encounter procedure BETTY Lopez Work Phone: [facility] [place] Work Phone: Start: 02-07-2023 Registered Recurring BETTY Lopez Work Phone: [facility] Work Phone: Start: 02-06-2023 End: 02-06-2023 Emergency department patient visit BETTY Lopez Work Phone: [facility] Work Phone: Start: 01-29-2023 End: 01-29-2023 ambulatory INSTRUMENT ROOM TECHNICIANFamilia Lopez Work Phone: [facility] Work Phone: Start: 01-29-2023 End: 01-29-2023 Patient encounter procedure BETTY Lopez Work Phone: [facility] [place] Work Phone: Start: 01-25-2023 Registered Recurring BETTY east John Work Phone: [facility] Work Phone: Start: 01-24-2023 End: 01-24-2023 ambulatory INSTRUMENT ROOM TECHNICIAN Yudelka aPulino Lopez Work Phone: [facility] Work Phone: Start: 01-24-2023 End: 01-24-2023 Discharged Recurring BETTY Lopez Work Phone: [facility] [address] Start: 12-25-2022 End: 12-25-2022 ambulatory BETTY Lopez Work Phone: [facility] Work Phone: Start: 12-25-2022 End: 12-25-2022 Patient encounter procedure BETTY Lopez Work Phone: [facility] [place] Work Phone: Start: 12-25-2022 Registered Recurring BETTY east Lopez Work Phone: [facility] [address] Start: 12-22-2022 End: 12-22-2022 ambulatory Imad Asaad Other [employer] Other Start: 12-22-2022 Telephone encounter Imad Asaad [facility] Start: 12-21-2022 End: 12-21-2022 ambulatory Imad Asaad Other [employer] Other Start: 12-21-2022 [facility] visit new patient Imad Asaad [facility] Start: 12-07-2022 End: 12-07-[address] DOCTOR MARI Facility:[facility] Start: 11-29-2022 End: 11-30-[address] MALCOLM PENDLETON . Facility:[facility] Start: 11-28-2022 End: 11-28-2022 Emergency department patient visit INSTRUMENT ROOM TECHNICIANFamilia Lopez Work Phone: [facility] Work Phone: Start: 11-01-2022 Registered Recurring INSTRUMENT ROOM TECHNICIAN Howard Lopez Work Phone: [facility] Work Phone: Start: 10-12-2022 End: 10-12-2022 ambulatory INSTRUMENT ROOM TECHNICIAN Yudelka Lopez Work Phone: [facility] Work Phone: Start: 10-12-2022 End: 10-12-2022 Patient encounter procedure BETTY Lopez Work Phone: [facility] [place] Work Phone: Start: 10-10-2022 Registered Recurring BETTY Lopez Work Phone: [facility] Work Phone: Start: 10-02-2022 End: 10-02-2022 ambulatory BETTY Lopez Work Phone: [facility] Work Phone: Start: 10-02-2022 End: 10-02-2022 Patient encounter procedure BETTY Lopez Work Phone: [facility] [place] Work Phone: Start: 09-21-2022 End: 09-21-2022 Emergency department patient visit BETTY Lopez Work Phone: [facility] Work Phone: Start: 09-15-2022 End: 09-15-2022 ambulatory INSTRUMENT ROOM TECHNICIAN Yudelka Lopez Work Phone: [facility] Work Phone: Start: 09-15-2022 End: 09-15-2022 Patient encounter procedure BETTY Yudelka Lopez Work Phone: [facility] [place] Work Phone: Start: 08-05-2022 End: 08-06-[address] MALCOLM PENDLETON . Facility:[facility] Start: 07-28-2022 End: 07-29-[address] MALCOLM PENDLETON . Facility:[facility] Start: 07-04-2022 End: 07-04-2022 Emergency department patient visit BETTY Yudelka Lopez Work Phone: [facility] Start: 07-03-2022 End: 07-03-[address] MALCOLM PENDLETON . Facility:[facility] Start: 06-01-2022 End: 06-01-2022 Emergency department patient visit BETTY Yudelka Lopez Work Phone: [facility] Start: 04-21-2022 Patient encounter procedure Yudelka Lopez Work Phone: [facility] Work Phone: Start: 04-21-2022 Postop follow up vis it related to original px Yudelka Lopez Work Phone: [facility] Work Phone: Start: 04-18-2022 End: 04-19-[address] DOCTOR MARI Facility:[facility] Start: 04-17-2022 Chart Update Yudelka Lopez Work Phone: [facility] Work Phone: Start: 04-14-2022 End: 04-14-2022 Departed Referred BETTY Yudelka Lopez Work Phone: [facility] Start: 04-11-2022 End: 04-11-[address] REBECCA GALVEZ Facility:[facility] Start: 04-07-2022 Postop follow up vis it related to original px Yudelka Lopez Work Phone: [facility] Work Phone: Start: 04-04-2022 End: 04-05-2022 Emergency department patient visit BETTY Lopez Work Phone: [facility] Start: 04-04-2022 AUDIT Yudelka Lopez Work Phone: [facility] Work Phone: Start: 03-31-2022 End: 03-31-2022 Patient encounter procedure BETTY Lopez Work Phone: [facility] Start: 03-24-2022 Patient encounter procedure Unknown Unknown [facility] Work Phone: Start: 03-15-2022 End: 03-15-2022 Emergency department patient visit BETTY Lopez Work Phone: [facility] Start: 03-04-2022 End: 03-04-2022 Emergency department patient visit BETTY Lopez Work Phone: [facility] Start: 02-20-2022 End: 02-20-[address] ALFIE MATTHEWS Facility:[facility] Start: 02-02-2022 End: 02-03-[address] ALFIE MATTHEWS Facility:[facility] Start: 01-11-2022 End: 01-12-[address] ALFIE MATTHEWS Facility:[facility] Procedures Date Procedure Procedure Detail Performing Clinician Start: 07-14-2024 SARS-CoV-2, Influenza & RSV (PCR) BETTY Lopez Work Phone: Start: 07-14-2024 Computed tomography of abdomen and pelvis with contrast BETTY Yudelka Lopez Work Phone: Start: 03-14-2023 MRI of cervical spine without contrast BETTY Yudelka John Work Phone: Start: 01-29-2023 Radionuclide gastric emptying study BETTY Lopez Work Phone: Start: 11-28-2022 X-ray of left foot BETTY Lopez Work Phone: Start: 10-02-2022 US scan of thyroid INSTRUMENT ROOM TECHNICIANFamilia Lopez Work Phone: Start: 10-02-2022 X-ray of cervical spine INSTRUMENT ROOM TECHNICIANFamilia christina Work Phone: Start: 09-21-2022 SARS-CoV-2, Influenza & RSV (PCR) INSTRUMENT ROOM TECHNICIANFamilia Lopez Work Phone: Start: 09-21-2022 Plain chest [...] Lopez Work Phone: Start: 02-12-2020 Colonoscopy Lex Elizabeth Comment on above: Poor prep Start: 02-12-2020 Esophagogastroduodenoscopy Lex Elizabeth Start: 09-03-2019 section Lex Elizabeth section Lex christina None (qualifier value) Lex Elizabeth Plan of Treatment Date Care Activity Detail Author Start: 08-07-2023 [facility] Start: 07-24-2023 [facility] Start: 02-07-2023 [facility] Start: 01-31-2023 [facility] Start: 01-26-2023 End: 01-26-2023 [facility] Start: 01-24-2023 End: 01-25-2023 [facility] Start: 11-28-2022 X-ray of left foot XR foot LT min 3V * [facility] Start: 11-28-2022 XR Foot - left GE [address] [facility] Start: 11-01-2022 [facility] Start: 10-24-2022 End: 10-25-2022 [facility] Start: 10-17-2022 [facility] Start: 10-13-2022 [facility] Start: 10-12-2022 End: 10-13-2022 [facility] Start: 10-10-2022 [facility] Start: 04-21-2022 POV, Provider: Sly Crocker, Status: Pen, Time: 10:30 AM POV, Provider: Sly Crocker, Status: Pen, Time: 10:30 AM [facility] Work Phone: Albumin [Mass/volume ] in Serum or Plasma [facility] Albumin/Globulin ratio [facility] Calprotectin [Mass/m ass] in Stool [facility] Comprehensive metabo lic 1999 panel - Serum or Plasma [facility] Comprehensive metabo lic 1999 panel - Serum or Plasma [facility] Comprehensive metabo lic 1999 panel - Serum or Plasma [facility] Comprehensive metabo lic 1999 panel - Serum or Plasma [facility] Copper measurement [facility] Electrophoresis: jlble-0-sbsilyac [facility] Electrophoresis: cnerc-0-wxlzuoce [facility] Electrophoresis: beta-globulin [facility] Electrophoresis: manohar ma globulin [facility] Endomysial antibody IgA level [facility] Erythrocyte sediment ation rate by Photometric method [facility] Erythropoietin (EPO) [Units/volume] in Serum or Plasma [facility] Ferritin [Mass/volum e] in Serum or Plasma [facility] Gliadin peptide IgA Ab [Units/volume] in Serum [facility] Gliadin peptide IgG Ab [Units/volume] in Serum [facility] Globulin [Mass/volum e] in Serum [facility] HIV 1+2 Ab+HIV1 p24 Ag [Presence] in Serum or Plasma by Immunoassay [facility] IgA [Mass/volume] in Serum or Plasma [facility] IgA [Mass/volume] in Serum or Plasma [facility] IgG [Mass/volume] in Serum or Plasma [facility] IgM [Mass/volume] in Serum or Plasma [facility] Fowler light chains.f ree [Mass/volume] in Serum [facility] Fowler light chains.free/Lambda light chains.free [Mass Ratio] in Serum [facility] Lactate dehydrogenas e [Enzymatic activity/volume] in Unspecified specimen [facility] Lambda light chains. free [Mass/volume] in Serum or Plasma [facility] Patient Education [facility] Work Phone: Patient referral [facility] Work Phone: Protein [Mass/volume ] in Serum or Plasma [facility] Reagin Ab [Presence] in Serum by RPR [facility] Serum immunofixation [facility] Thyroglobulin Ab [Units/volume] in Serum or Plasma [facility] Thyroperoxidase Ab [Units/volume] in Serum or Plasma [facility] Thyrotropin receptor Ab [Units/volume] in Serum [facility] Tissue transglutamin ase IgA Ab [Units/volume] in Serum [facility] Tissue transglutamin ase IgG Ab [Units/volume] in Serum [facility] Immunizations Immunization Date Immunization Notes Care Provider Iker castro 09-01-2021 influenza virus vaccine, unspecified formulation Malagon Sarmini [facility] 01-10-2016 tetanus toxoid, reduced diphtheria toxoid, and acellular pertussis vaccine, adsorbed Malagon Sarmini [facility] 09-30-2009 hepatitis A vaccine, unspecified formulation Malagon Sarmini [facility] 09-30-2009 hepatitis B vaccine, pediatric or pediatric/adolescent dosage Malagon Sarmini [facility] 05-27-2009 hepatitis B vaccine, pediatric or pediatric/adolescent dosage Malagon Sarmini [facility] 03-22-2009 hepatitis A vaccine, unspecified formulation Malagon Sarmini [facility] 03-22-2009 hepatitis B vaccine, pediatric or pediatric/adolescent dosage Malagon Sarmini [facility] 03-22-2009 measles, mumps and rubella virus vaccine Malagon Sarmini [facility] 03-22-2009 meningococcal ACWY vaccine, unspecified formulation Malagon Sarmini [facility] 03-22-2009 tetanus toxoid, reduced diphtheria toxoid, and acellular pertussis vaccine, adsorbed Malagon Chuchomini [facility] NEGATED: Highlighted row has not occurred!12-07-2023 influenza virus vaccine, unspecified formulation Malagon Sarmini [facility] Payers Date Payer Category Payer Self-pay [id number] 1990 Unknown [id number] 2.16.84 0.1.766847.3.579.2.593 1992 Unknown [id number] .16.84 0.1.448976.3.579.2.59 1992 Unknown [id number] .16.84 0.1.376563.3.579.2.593 1992 Unknown [id number] .16.84 0.1.698111.3.579.2.593 1992 Unknown [id number] 2.16.84 0.1.668456.3.579.2.593 1992 Unknown [id number] 2.16.84 0.1.611769.3.579.2.593 1992 Unknown [id number] 2.16.84 0.1.070611.3.579.2.593 1992 Unknown [id number] 2.16.84 0.1.751605.3.579.2.593 1992 Unknown [id number] 2.16.84 0.1.843461.3.579.2.593 1992 Unknown [id number] 2.16.84 0.1.025768.3.579.2.593 1992 Unknown [id number] 2.16.8 40.1.099843.3.579.2.727 1992 Unknown [id number] 2.16.8 40.1.992901.3.579.2.727 1992 Unknown [id number] 2.16.84 0.1.891897.3.579.2.1259 1992 Unknown [id number] 2.16.84 0.1.139804.3.579.2.1259 1992 Unknown [id number] 2.16.84 0.1.110632.3.579.2.1259 1992 Unknown [id number] 2.16.8 40.1.361424.3.579.2.1286 1959 Private Health Insurance [id number] Private Health Insurance [id number] Private Health Insurance [id number] Unknown Unknown [id number] 2.16.8 40.1.982358.3.579.2.531 Worker's Compensation [id number] Social History Date Type Detail Facility Start: 04-04-2022 End: 07-14-2024 Tobacco smoking status NHIS Never smoked tobacco (finding) [facility] Start: 1990 Sex Assigned At Female [facility] Assigned At [facility] Tobacco smoking status Never [facility] NEGATED: Highlighted row Fir [facility] Goals Date Patient Goal Desired Activity /State Clinical Notes 04-03-2022 to 07-04-2023 Note Date & Type Note Facility 07-04-2023 Progress note Note Date/Time June 27, 2023 10:36[facility] [place] [id number] Hem/Onc Follow Up Note - OP Signed Patient: Leandra Fonseca MR#: [id number] : 1990 Acct:[id number] Age/Sex: 33 / F Type: REG RCR Copies to: Yudelka Lopez APRN, [employer] SALES ASSOCIATE-C~ Date of Service: 06/27/2023 Time of Service: [...] She believes she had this done at [facility] in [place] in 2019. We will request these records, and if they are not available, will plan repeat testing including hemoglobin electrophoresis. In themeantime check b12, folate, copper, epo, reticulocytes, haptoglobin, LDH, and christiano testing. B12 deficiency Will initiate weekly B12 injections x 4, then switch to monthly Follow Up Instructions: b12 weekly x 4 then monthly get [facility] records from 2019- hgb electrophoresis, thalassemia [...] cravings denies new complaints. 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 Her heavy days she [...] for coordination of care (as documented) and qvxb-il-szvl counseling of patient and/or family. [facility] - Medical History Medical History: Medical History [...] 1036 Signed By: <Electronically signed by BETTY Huogh> 07/03/23 [facility] Work Phone: 1([phone]) 849-183809-18-2023 Evaluation note* Encounter Date Diagnosis Assessment Notes Treatment Notes Treatment Clinical Notes May, Rash and nonspecific skin eruption (ICD-10 - R21) 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 Given return precautions. [employer] Other 07-18-2023 Progress note Author Kelly Hough [facility] April 03, 2023 9:16am Note Date/Time March 21, 2023 3:35p [facility] at [address] [address] Hem/Onc Follow Up Note - OP Signed Patient: Leandra Fonseca MR#: [id number] : 1990 Acct:[id number] Age/Sex: 32 / F Type: REG RCR [...] cravings denies new complaints. 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 Her heavy days she [...] after visit and call with concerning results PMF - Medical History Medical History: Medical History [...] 25 mg rectal suppository (Anusol-HC) 25 mg OH DAILY 2 weeks #12 ea 02/06/23 [Rx [...] for coordination of care (as documented) and vvoh-bf-ipmx counseling of patient and/or family. Dictated By: Kelly Hough APRN DD/ 1535 Signed By: <Electronically signed by BETTY Hough> 04/03/23 [facility] Work Phone: 1(385) 910-670604-19-2023 Progress note Author Kelly Hough [facility] January 03, 2023 2:03pm Note Date/Time January 02, 2023 10: 47am [facility] [place] [id number] Hem/Onc Follow Up Note - OP Signed Patient: Leandra Fonseca MR#: [id number] : 1990 Acct:[id number] Age/Sex: 32 / F Type: REG RCR [...] cravings denies new complaints. 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 Her heavy days she will only go thru maybe 2 pads/day. labs with hgb 11, iron sat 46.5% and ferritin 58.3 PMFSH - Medical History Medical History: Medical History (Last Reviewed 11/28/22 @ 20:41 by Elizabeth Jones, RN) Anemia Asthma Endometriosis Hypertension affecting Pre-eclampsia - Surgical History Surgical History: Surgical History (Last Reviewed 11/28/22 @ 20:41 by Elizabeth Jones, RN) History of section - Family History [...] for coordination of care (as documented) and mwrn-dc-yqxn counseling of patient and/or family. Dictated By: Kelly Hough APRN DD/ 1046 Signed By: <Electronically signed by BETTY Hough> 01/03/23 [facility] Work Phone: [phone]) 841-360904-07-2023 Evaluation note* Encounter Date Diagnosis Assessment Notes Treatment Notes Treatment Clinical Notes Dec, Abdominal pain (ICD-10 - R10.9) Dec, Bloating (ICD-10 - R14.0) Dec, Nausea (ICD-10 - R11.0) [employer] Other 04-06-2023 Evaluation note* Encounter Date Diagnosis [...] - K92.1) Dec, Other Obtain records from [facility] in 2019 for EGD/Colonoscopy [facility] [employer] Other 01-17-2023 Consult note Author Kelly Hough [facility] October 03, 2022 1:04pm Note Date/Time October 03, 2022 1 1:23[facility] [place] [address] Hem/Onc Consult Note - OP Signed with Gena Patient: Leandra Fonseca MR#: [id number] : 1990 Acct:[id number] Age/Sex: 32 / F Type: REG RCR Copies to: Yudelka Lopez APRN, [employer] SAL[employer] ASSOCIATE-C~ ADDENDUM1 Patient had labs after her visit that show persistent iron deficiency with ferritin low at 7.7 and hgb 9.7. Iron saturation ok, will still plan to replete with IV Venofer and follow-up as scheduled. Addendum Dictated By: BETTY Hough Addendum Signed By: 10/03/221303 Addendum Cosigned By: [...] going to the ER with worsening symptoms. [facility] - Medical History Medical History: Medical History [...] for coordination of care (as documented) and sqop-ej-hvzq counseling of patient and/or family. Dictated By: Kelly Hough APRN DD/ 1123 Signed By: <Electronically signed by BETTY Hough> 10/03/22 1252 [facility] Work Phone: 1(406) 329-626607-18-2022 NotePROCEDURE DETAILS Preoperative Diagnosis: Left abdominal wall endometrioma Postoperative Diagnosis: Same Surgeon: Sly Crocker Resident/Fellow/Other Life Coach: Ariel Thompson Procedure: 1. LEFT ABDOMINAL WALL TUMOR RESECTION 8X5.5X4CM 2. MESH RECONSTRUCTION ANTERIOR RECTUS FASCIA 7X5CM DEFECT (Bard Soft Mesh) 3. COMPLEX CLOSURE OF A 8CM WOUND Anesthesia: Alan Pardo Estimated Blood Loss: 10ml Findings: 8X5.5X4CM SOFT TISSUE MASS WITH EN BLOC FASCIA AND OVERLYING SKIN PADDLE Specimens(s) Collected: yes, Left anterior wall soft tissue mass -short uzzjzoew02:00, long lateral 300 Complications: None Drains and/or [...] portions of the procedure. Note Recipients: Yudelka Lopez, INSTRUMENT ROOM TECHNICIAN-CATALINA BOSWELLRAFAELA MALCOLM R - [phone] [] Attestation: Note Completion: Attending AttestationI was present for the entire procedure Electronic Signatures: Sly Crocker) (Signed 03-Apr-2022 17:55) Authored: Post-Operative Note, Chart Review, Note Completion Last Updated: 03-Apr-2022 17:55 by Sly Crocker)[facility]07-18-2022 NoteHistory & Physical Reviewed: /Lactating: Are You [...] the note. I personally evaluated the patient [id number] Electronic Signatures: Miguel Crawford (Resident)) (Signed 03-Apr-2022 12:08) Authored: History & Physical Reviewed, ERAS, Consent, Note Completion Sly Crocker) (Signed 03-Apr-2022 14:42) Authored: Note Completion Co-Signer: History & Physical Reviewed, ERAS, Consent, Note Completion Last Updated: 03-Apr-2022 14:42 by Sly Crocker)[facility] No data available for this section [facility] [place] Evaluation noteNo assessment information available [facility] Work Phone: Evaluation note* Diagnosis Onset Date Resolution Status Iron deficiency anemia due to chronic blood loss acute [facility] Work Phone: Evaluation note* Diagnosis Onset Date Resolution Status Abdominal pain acute [facility] Work Phone: History general Narrative - Reported* Type Description Date Medical History concussion Medical History IBS-C Surgical History C SECTION Hospitalization History see above [employer] Other History of Present illness Narrative* Ms. [...] sensorimotor deficits * Extremities: No leg swelling [id number]: [facility] of Present illness [...] to the telephone nature of this visit. [facility] Work Phone: Hospital Discharge instructions Additional Instructions If your symptoms return/worsen or you develop any further concerns or symptoms please see your doctor or return to the emergency department immediately.[facility] Work Phone: Hospital Discharge instructions Additional Instructions Follow-up with your primary care doctor Return to ED if you develop worsening symptoms or concerns[facility] Work Phone: Hospital Discharge instructions Additional Instructions Return for worsening symptoms [facility] Hospital Discharge instructions No data available for this section [facility] Hospital Discharge instructions Additional Instructions We evaluated you for your symptoms. Your workup here was unremarkable. Please use the nausea medicine as prescribed. Please follow closely with your primary doctor. Please return to the emergency department if you develop any worsening or concerning symptoms. [facility] Work Phone: Progress note No data available for this section [facility] Summary Purpose Family History No Family History Records Found Relationship Condition Age at Onset Recorded Date/T charis father Myocardial infarction Unknown Not Specified Hypertension Unknown Not Specified Diabetes mellitus Unknown grandparent Malignant neoplasm Unknown Relationship Condition Age at Onset Recorded Date/T charis father Myocardial infarction Unknown mother Hypertension Unknown mother Diabetes mellitus Unknown grandparent Malignant neoplasm Unknown [...] due to chronic blood loss Chief Complaint cough, vomiting Chief Complaint cough, vomiting fever, abd pain Reason for Visit Abdominal pain Additional Source Comments INFORMATION SOURCE (unrecogn ized section and content) DATE CREATED AUTHOR 04/07/2022 [facility] DATE CREATED AUTHOR AUTHOR'S ORGANIZ ATION 04/23/2022 [employer] DATE CREATED AUTHOR AUTHOR'S ORGANIZ ATION 04/28/2022 [facility] DATE CREATED AUTHOR AUTHOR'S ORGANIZ ATION 05/16/2022 [facility] DATE CREATED AUTHOR AUTHOR'S ORGANIZ ATION 12/21/2022 [facility] DATE CREATED AUTHOR AUTHOR'S ORGANIZ ATION 12/11/2023 [facility] DATE CREATED AUTHOR AUTHOR'S ORGANIZ ATION 02/20/2024 [facility] DATE CREATED AUTHOR AUTHOR'S ORGANIZ ATION 02/22/2024 [facility] DATE CREATED AUTHOR AUTHOR'S ORGANIZ ATION 07/25/2024 [facility] Care Teams (unrecognized sec tion and content) Team Status: Active Member Role Status Dates Yudelka Lopez APRN [employer]C Primary Care Provider Act klever Team Status: Inactive Member Role Status Dates Yudelka Lopez APRN [employer]-C Primary Care Provider Act klever Start: July 14, 2024 End: July 14, 2024 Larry Underwood PA-C Attending Provider Active St art: July 14, 2024 End: July 14, 2024 Team Status: Active Member Role Status Dates Yudelka Lopez APRN [employer]-C Primary Care Provider, Re edita Provider Active Kelly Hough APRN Attending Provider Acti ve Team Status: Inactive Member Role Status Dates Yudelka Lora Lopez , INSTRUMENT ROOM TECHNICIAN [employer]C Primary Care Provider Act klever Dayne Horton MD Attending Provider Active Team Status: Inactive Member Role Status Dates Yudelka Lopez , INSTRUMENT ROOM TECHNICIAN [employer]-C Primary Care Provider Act kleveralbino Vega PA-C Emergency Provider Active Team Status: Active Member Role Status Dates Yudelka Lopez , INSTRUMENT ROOM TECHNICIAN [employer]-C Primary Care Provider, At tending Provider Active Team Status: Inactive Member Role Status Dates Yudelka Lopez , INSTRUMENT ROOM TECHNICIAN [employer]ATE-C Primary Care Provider Act kleveralbino Shanks MD Attending Provider Active Dayne Horton MD Referring Provider Active Team Status: Inactive Member Role Status Dates Yudelka Lopez , INSTRUMENT ROOM TECHNICIAN [employer]-C Primary Care Provider, At tending Provider Active Team Status: Inactive Member Role Status Dates Yudelka Lopez , INSTRUMENT ROOM TECHNICIAN [employer]-C Primary Care Provider Act klever Frank Silva , DO Emergency Provider Active Team Status: Inactive Member Role Status Dates Yudelka Lopez , INSTRUMENT ROOM TECHNICIAN [employer]-C Primary Care Provider Act klever Sly Crocker MD Attending Provider Active Team Status: Inactive Member Role Status Dates Yudelka Lopez , INSTRUMENT ROOM TECHNICIAN [employer]-C Primary Care Provider Act klever Jim Vega , DO Emergency Provider Active Team Status: Inactive Member Role Status Dates Yudelka Lopez , INSTRUMENT ROOM TECHNICIAN [employer]-C Primary Care Provider Act klever Chris Greenwood , DO Emergency Provider Active Team Status: Inactive Member Role Status Dates Yudelka Lopez , INSTRUMENT ROOM TECHNICIAN [employer]-C Primary Care Provider Act klever Marvin Serrano Jr, MD Emergency Provider Active Team Status: Inactive Member Role Status Dates Yudelka Lopez , INSTRUMENT ROOM TECHNICIAN [employer]-C Primary Care Provider Act klever Frank Silva , DO Emergency Provider Active Vicky Fuentes DO RES Active Team Status: Inactive Member Role Status Dates Yudelka Lopez , INSTRUMENT ROOM TECHNICIAN [employer]ATE-C Primary Care Provider Act klever Tejinder Peraza [employer]OC[employer]ATE-C Attending Provider Active Team Status: Inactive Member Role Status Dates Jim Vega , DO Emergency Provider Active Yudelka Lopez , INSTRUMENT ROOM TECHNICIAN [employer]ATE-C Primary Care Provider Act klever Team Status: Inactive Member Role Status Dates Yudelka Lopez , INSTRUMENT ROOM TECHNICIAN [employer]OC[employer]ATE-C Primary Care Provider Act kleveralbino Shanks MD Attending Provider Active Team Status: Inactive Member Role Status Dates Yudelka Lopez , INSTRUMENT ROOM TECHNICIAN [employer]ATE-C Attending Provider Active Team Status: Inactive Member Role Status Dates Yudelka Lopez APRN [employer]-C Primary Care Provider Act klever Start: July 14, 2024 End: July 14, 2024 Sarah Dodd DO Emergency Provider Active Start: July 14, 2024 End: July 14, 2024 Lety Dougherty DO RES Active Sta rt: July 14, 2024 End: July 14, 2024 Goals (unrecognized section and content) Goals may [...] sectionNo Information No data available for this sectionGoals may be documented in an alternate sectionGoals may be documented in an alternate section REASON FOR VISIT (unrecogniz ed section and content) PT IS HERE AT THE REQUEST OF DR. LOPEZ/HX OF IBS/FM HX OF CROHN'S/[place] ER-RECORDS REQUESTEDGastric emptying studyRASH ON BACK FOR [...] BE BASED ON THE PRIMARY CLINICAL RECORDS. [employer] provides no warranty or guarantee of the accuracy or completeness of information in this document.
[2024-08-02 07:58] LABS: HCG Quantitative 2355 mIU/mL
== END 2024-08-02 06:51 | disposition home or self-care (01) ==
LOC: LAB 06:52
PROVIDERS: Visit Provider Obstetrics & Gynecology
DX: O02.81 Inappropriate change in quantitative human chorionic gonadotropin (hCG) in early pregnancy (principal)
CPT/HCPCS: 36415; 84702

== ENCOUNTER 2024-08-04 06:32 | Outpatient (OUT) | payer OTHER, SELFPAY ==
--- OUTSIDE RECORDS SUMMARY | 2024-08-04 06:36 | XMS_ITS | CCD ---
Author Organization [facility] Care Team Providers Care Sales Professional Bilingual Name Role Phone Unknown, Unknown Unavailable Unavailable Yudelka Lopez Unavailable Unavailable Unavailable BETTY Lopez Primary Care Provider DO Chris Greenwood Emergency Provider DO Jim Vega Emergency Provider MD Sly Crocker Attending Provider DO Frank Silva Emergency Provider BETTY Lopez Attending Provider MD Marvin Serrano Jr Emergency Provider BETTY Lopez Primary Care Provider [phone] DO Frank Silva Emergency Provider [phone] BETTY Lopez Primary Care Provider DO Frank Silva A Emergency Provider NADYA Peraza W Attending Provider [phone] DO Jim Vega Emergency Provider BETTY Lopez Primary Care Provider BETTY Lopez Attending Provider BETTY Lopez Referring Provider BETTY Hough Attending Provider MD Dayne Horton Attending Provider BETTY Lopez Primary Care Provider [phone] NADYA Peraza W Attending Provider [phone] DO Jim Vega Emergency Provider [phone] Lopez, CHARGE ACCOUNT CLERK Yudelka Lora Attending Provider MD Dayne Horton Attending Provider John, BETTY Paulino Referring Provider BETTY Hough [...] Primary Care Unavailable Jose Shanks Unavailable John CHARGE ACCOUNT CLERK Yudelka Lora Primary Care Provider [phone] MD Jose Shanks Attending Provider [phone] MD Dayne Horton Referring Provider John CHARGE ACCOUNT CLERK Yudelka Lora Primary Care Provider WALDO LopezN Yudelka Lora Attending Provider John CHARGE ACCOUNT CLERK Yudelka Lora Referring Provider BETTY Hough Attending Provider John CHARGE ACCOUNT CLERK Yudelka Lora Primary Care Provider [phone] DO Jim Vega Emergency Provider John CHARGE ACCOUNT CLERK Yudelka Lora Referring Provider BETTY Hough Attending Provider John CHARGE ACCOUNT CLERK Yudelka Lora Referring Provider BETTY Hough Attending Provider Alfie Matthews Primary Care Physician WALDO LopezN Yudelka Lora Primary Care Provider MD Dayne Horton Attending Provider WALDO LopezN Yudelka Lora Referring Provider BETTY Hough Attending Provider Marvin Fontenot Unavailable John CHARGE ACCOUNT CLERK Yudelka Lora Referring Provider BETTY Hough Attending Provider John CHARGE ACCOUNT CLERK Yudelka Lora Primary Care Provider [phone] WALDO LopezN Yudelka Lora Referring Provider BETTY Hough Attending Provider BETTY Lopez Attending Provider BETTY Lopez Primary Care Provider BETTY Lopez Referring Provider BETTY Hough [...] (6 sources) Albuterol; Translations: [albuterol] Drug Allergy RY-Eskhupzej-Pn idman Work Phone: (20 sources) Labetalol; Translations: [Labetalol] Drug Allergy 2 Difficulty Breathing [facility] (10 sources) THYROID MEDICATION Allergy to substance 3 Rash [facility] (3 sources) methIMAzole Drug Allergy 4 anaphylaxis [facility] (3 sources) methIMAzole Drug Allergy anaphylaxis [employer] Other (3 sources) cefdinir Drug Allergy 4 Unknown, Unknown Reaction [facility] (1 source) cefdinir Drug Allergy 4 [facility] (1 source) methIMAzole Drug Allergy 4 [facility] Medications Current Medications Medication Drug Class(es) Dates Sig (Normalized) Sig (Original) All Day Allergy 10 mg oral tablet (2 sources) Start: 11-19-2020 take 1 tablet by mouth once daily All Day Allergy 10 mg oral tablet 10 mg = 1 tab(s), Oral, Daily, # 30 tab(s), Refills(s) 0, Pharmacy: [email or web address], 158, cm, 11/19/20 19:36:00 EST, Height/Length Dosing, 77, kg, 11/19/20 19:36:00 EST, Weight Dosing Start Date: 11/19/20 Status: Ordered ergocalciferol 1.25 mg oral capsule (2 sources) Provitamin D2 Compound Vitamin D (Ergocalciferol) 1.25 MG (47360 UT) Oral for 28 Days Active fluticasone 0.05 mg/inh Nasal [place] (2 sources) Start: 11-19-2020 take 2 spray(s) nasal route once daily fluticasone 0.05 mg/inh Nasal [place] 2 spray(s), Nasal, Daily, 16 gram, Refill(s) 0, each nostril, [id number], 158, cm, 11/19/20 19:36:00 EST, Height/Length Dosing, 77, kg, 11/19/20 19:36:00 EST, Weight Dosing Start Date: 11/19/20 Status: Ordered metoclopramide 5 mg oral tablet (2 sources) Dopamine-2 Receptor Antagonist Metoclopramide HCl 5 MG Oral for 5 Days Active [place] (No Known Home Meds) (2 sources) Start: 11-24-2023 [place] (No Known Home Meds) Active November 24, 2023 1:00am Start: 06-27-2023 [place] (No Kn own Home Meds) Active June [...] Drug Class(es) Dates Sig (Normalized) Sig (Original) [id number] 200 actuat albuterol 0.09 mg/actuat metered dose [...] (Anusol-Hc) 25 mg suppository Discontinued 25 MG [place] Daily 08 30February 06, 2023 12:00am June 27, 2023 10:32am hydrocortisone acetate 10 mg/ml / pramoxine hydrochloride 10 mg/ml rectal foam (18 sources) Corticosteroid Start: 06-01-2022 End: 09-21-2022 Hydrocortisone-Pram oxine (Proctofoam Hc) 1-1 % foam Discontinued 1 APPLIC [place] Three times daily 06 23June 01, 2022 [...] Start: 03-02-2020 take 1 capsule by mo [facility] once daily linaclotide 145 mcg oral capsule 145 microgram = 1 cap(s), Oral, Daily, # 30 cap(s), Refills(s) 0, Pharmacy: [facility] [address], [address], cm, 03/02/20 [...] 2018 12:00am November 26, 2018 10:27pm Pnv,Calcium 17-Ywfm-Lboqe Acid ( Vitamin Plus Low Iron) 27 mg iron- 1 mg tablet (19 sources) Start: 03-01-2019 End: 12-11-2019 Pnv,Calcium 96-Spjg-Ygowi Acid ( Vitamin Plus Low Iron) 27 mg iron- 1 mg tablet Discontinued 27 MG PO Daily February 28, 2019 11:00pm December 11, 2019 8:47pm Start: 03-01-2019 End: 12-11-2019 Pnv,Calcium 90-Mikt-Mzwqh Ac id ( Vitamin Plus Low Iron) [...] ALT [Catalytic activity/Vol] 9 U/L Normal 7-52 [facility] Comment on above: Performed By: #### U HCG, ADDONUAPLUS #### [address] Albumin [Mass/volume] in Ser um or Plasma by Bromocresol green (BCG) dye binding methoOrdered By: Sarah Dodd on 07-14-2024 Albumin BCG dye [Mass/Vol] 4.1 g/dL 3.5-5.7 [facility] Alkaline phosphatase [Enzyma tic activity/volume] in Serum or PlasmaOrdered By: Sarah Dodd on 07-14-2024 ALP [Catalytic activity/Vol] 48 U/L Normal 34-104 [facility] Comment on above: Performed By: #### U HCG, ADDONUAPLUS #### [address] Aspartate aminotransferase [ Enzymatic activity/volume] in Serum or PlasmaOrdered By: Sarah Dodd on 07-14-2024 AST [Catalytic activity/Vol] 14 U/L Normal 13-39 [facility] Comment on above: Performed By: #### U HCG, ADDONUAPLUS #### [address] Automated basophil %Ordered By: Sarah Dodd on 07-14-2024 Basophils/100 WBC (Bld) 0.4 % Normal . [facility] Comment on above: Performed By: #### U HCG, ADDONUAPLUS #### [address] Automated basophil countOrde red By: Sarah Dodd on 07-14-2024 Basophils (Bld) [#/Vol] 0.0 10*3/uL Normal 0.0-0.2 [facility] Comment on above: Result Comment: PERF ORMED BY: [place] [address] PATHOLOGIST AGRICULTURAL LOAN OFFICER CLAU ZAVALA M.D. Performed By: #### U HCG, ADDONUAPLUS #### [address] Automated blood monocyte cou ntOrdered By: Sarah Dodd on 07-14-2024 Monocytes (Bld) [#/Vol] 0.5 10*3/uL Normal 0.0-0.8 [facility] Comment on above: Performed By: #### U HCG, ADDONUAPLUS #### [facility] [address] [place] [address] Automated eosinophil %Ordere d By: Sarah Dodd on 07-14-2024 Eosinophils/100 WBC (Bld) 0.6 % Normal . [facility] Comment on above: Performed By: #### U HCG, ADDONUAPLUS #### [address] Automated eosinophil countOr dered By: Sarah Dodd on 07-14-2024 Eosinophils (Bld) [#/Vol] 0.0 10*3/uL Normal 0.0-0.45 [facility] Comment on above: Performed By: #### U HCG, ADDONUAPLUS #### [address] Automated monocyte %Ordered By: Sarah Dodd on 07-14-2024 Monocytes/100 WBC (Bld) 12.3 % Normal . [facility] Comment on above: Performed By: #### U HCG, ADDONUAPLUS #### [address] Automated neutrophil %Ordere d By: Sarah Dodd on 07-14-2024 Neutrophils/100 WBC (Bld) 63.5 % Normal . [facility] Comment on above: Performed By: #### U HCG, ADDONUAPLUS #### [facility] [address] [place] [address] Bacteria [Presence] in Urine by AutomatedOrdered By: Sarah Dodd on 07-14-2024 Bacteria Auto Ql (U) Rare [HPF] None Seen [facility] Basic Metabolic Panelon 06-18 Creatinine Clr Calc Pharmacy 107.14 Normal [facility] Comment on above: Performed By: #### U HCG, ADDONUAPLUS #### [address] [place] [address] [place] GFR/1.73 sq M.predicted MDRD (S/P/Bld) [Vol rate/Area] mL/min/{1.73_m2} Normal [facility] Comment on above: Performed By: #### U HCG, ADDONUAPLUS #### [facility] [address] Bilirubin Test strip Ql (U)O rdered By: Sarah Dodd on 07-14-2024 Bilirubin Ql (U) Negative Negative [facility] Bilirubin.direct [Mass/volum e] in Serum or PlasmaOrdered By: Sarah Dodd on 07-14-2024 Bilirubin.direct [Mass/Vol] 0.10 mg/dL 0.03-0.18 [facility] Bilirubin.total [Mass/volume ] in Serum or PlasmaOrdered By: Sarah Dodd on 07-14-2024 Bilirubin [Mass/Vol] 0.4 mg/dL Normal 0.3-1.0 [facility] Comment on above: Performed By: #### U HCG, ADDONUAPLUS #### [facility] [address] [place] [address] COVID CepheidOrdered By: Macarena Dodd on 07-14-2024 SARS-CoV-2 (COVID-19) Ab IA Ql Negative Negative [facility] Comment on above: This is a duplicate Cepheid Xpert Xpress CoV-2/Flu/RSV Plus RNA by RT-PCR result to be used for statistical tracking purpose only. SARS-CoV-2 (COVID-19) RNA HIRAM+probe Ql (Unsp spec) [facility] COVID-19 / Flu A/B / RSV [...] or Cepheid Disclaimer revoked sooner. PERFORMED BY: [place] [address] PATHOLOGIST AGRICULTURAL LOAN OFFICER CLAU ZAVALA M.D. Normal [facility] Comment on above: Performed By: #### C OVID19 FLU RSV, CEPHEID NEG ####[facility] [id number] [place] [id number] [facility] CT abdomen pelvis w compa CT abdomen pelvis w [facility] [address] [place] [address] CT Scan Report Signed Patient: Leandra Fonseca MR#: [id number] : 1990 Acct:[id number] Age/Sex: 34 / F ADM Date: 07/14/24 Loc: ER Room: Type: [facility] ER Attending Dr: Copies to: DO Lety [...] Mancera Jr., D.OJorge07/14/2024 2:43 PM Dictation Location: [place] [address] Transcribed By: [facility] 07/14/24 1443 Dictated By: Leroy Mancera Jr, DO 07/14/24 1438 Signed By: 07/14/24 1443 Normal [facility] Calcium [Mass/volume] in Ser um or PlasmaOrdered By: Sarah Dodd on 07-14-2024 Calcium [Mass/Vol] 8.9 mg/dL Normal 8.6-10.3 [facility] Comment on above: Performed By: #### U HCG, ADDONUAPLUS #### [address] Carbon dioxide, total [Moles /volume] in Serum or PlasmaOrdered By: Sarah Dodd on 07-14-2024 CO2 [Moles/Vol] 25.2 mmol/L Normal 21.0-31.0 [facility] Comment on above: Performed By: #### U HCG, ADDONUAPLUS #### [address] Cepheid COVID PCR Negativeon 07-14-2024 SARS-CoV-2 (COVID-19) RNA HIRAM+probe Ql (Unsp spec) Negative Normal Negative [facility] Comment on above: Result Comment: This is a duplicate Cepheid Xpert Xpress CoV-2/Flu/RSV Plus RNA by RT-PCR result to be used for statistical tracking purpose only. PERFORMED BY: [place] [address] PATHOLOGIST AGRICULTURAL LOAN OFFICER CLAU ZAVALA M.D. Performed By: #### C OVID19 FLU RSV, CEPHEID NEG ####[facility] [place] [address] [place] Chloride [Moles/volume] in S salas or PlasmaOrdered By: Sarah Dodd on 07-14-2024 Chloride [Moles/Vol] 105 mmol/L Normal 98-107 [facility] Comment on above: Performed By: #### U HCG, ADDONUAPLUS #### [place] [address] [place] Color of Urine by AutoOrdere d By: Sarah Dodd on 07-14-2024 Color (U) Yellow Normal Yellow [facility] Comment on above: Order Comment: Name Collection Type:: Clean-Voided Midstream Performed By: #### U HCG, ADDONUAPLUS #### [address] [address] [place] Complete Blood Count Auto Di ffon 07-14-2024 Mean Corpuscular HGB Conc 32.2 g/dL Normal 32.0-35.0 [facility] Comment on above: Performed By: #### U HCG, ADDONUAPLUS #### [facility] [address] [place] [address] Monocytes/100 WBC (Bld) 20.43 % High 0.00-20.00 [facility] Comment on above: Result Comment: For adults in ED, MDW > 20.0 may be associated with a higher risk of sepsis during the first 12 hrs of hospital admission Performed By: #### U HCG, ADDONUAPLUS #### [facility] [address] [place] [address] NRBC% 0.1 /100{WBC} Normal 0-0.5 [facility] Comment on above: Performed By: #### U HCG, ADDONUAPLUS #### [facility] [address] [place] [address] Creatinine [Mass/volume] in Serum or PlasmaOrdered By: Sarah Dodd on 07-14-2024 Creatinine [Mass/Vol] 0.71 mg/dL Normal 0.60-1.20 [facility] Comment on above: Performed By: #### U HCG, ADDONUAPLUS #### [facility] [address] [place] [address] [place] Dipstick and Microscopicon 1 Bacteria,Urine Rare Normal None Seen [facility] Comment on above: Order Comment: Name Collection Type:: Clean-Voided Midstream Performed By: #### U HCG, ADDONUAPLUS #### [facility] [address] [place] [address] [place] Bilirubin,Urine Negative Normal Negative [facility] Comment on above: Order Comment: Name Collection Type:: Clean-Voided Midstream Performed By: #### U HCG, ADDONUAPLUS #### [facility] [address] [place] [address] Glucose Ql (U) Normal Normal Normal [facility] Comment on above: Order Comment: Name Collection Type:: Clean-Voided Midstream Performed By: #### U HCG, ADDONUAPLUS #### [facility] [address] [place] [address] Hyaline Casts,Urine None Normal 0-8 [facility] Comment on above: Order Comment: Name Collection Type:: Clean-Voided Midstream Performed By: #### U HCG, ADDONUAPLUS #### [facility] [address] [place] [address] Mucus,Urine 2+ Critically abnormal [facility] Comment on above: Order Comment: Name Collection Type:: Clean-Voided Midstream Performed By: #### U HCG, ADDONUAPLUS #### [address] Nitrite,Urine Negative Normal Negative [facility] Comment on above: Order Comment: Name Collection Type:: Clean-Voided Midstream Performed By: #### U HCG, ADDONUAPLUS #### [address] Occult Blood,Urine 1+ High Negative [facility] Comment on above: Order Comment: Name Collection Type:: Clean-Voided Midstream Performed By: #### U HCG, ADDONUAPLUS #### [address] RBC,Urine 20-49 High 0-4 [facility] Comment on above: Order Comment: Name Collection Type:: Clean-Voided Midstream Performed By: #### U HCG, ADDONUAPLUS #### [facility] [address] [place] [address] Specificy [place],Urine 1.030 Normal 1.001-1.03 0 [facility] Comment on above: Order Comment: Name Collection Type:: Clean-Voided Midstream Performed By: #### U HCG, ADDONUAPLUS #### [address] Squamous Epithelial Cell,Urine 5-9 High 0-2 [facility] Comment on above: Order Comment: Name Collection Type:: Clean-Voided Midstream Performed By: #### U HCG, ADDONUAPLUS #### [facility] [address] Urobilinogen,Urine 3 mg/dL High Normal [facility] Comment on above: Order Comment: Name Collection Type:: Clean-Voided Midstream Performed By: #### U HCG, ADDONUAPLUS #### [facility] [address] WBC,Urine 5-9 High 0-4 [facility] Comment on above: Order Comment: Name Collection Type:: Clean-Voided Midstream Performed By: #### U HCG, ADDONUAPLUS #### [facility] [address] ECG 12 lead ECGon 07-14-2024 ECG 12 lead ECG [facility] [address] [place] [address] Electrocardiograph Report Signed Patient: Leandra Fonseca MR#: [id number] : 1990 Acct:[id number] Age/Sex: 34 / F ADM Date: 07/14/24 Loc: ER Room: Type: [facility] ER Attending Dr: Ordering Provider: Sarah [...] sinus rhythm Confirmed by Glenroy Weldon DO ([id number]) on 07/14/2024 8:07:49 PM Referred By: Electronically Signed By: Glenroy Weldon DO Transcribed By: MUS Signed By Glenroy Weldon DO 2006 Normal [facility] Epithelial cells.squamous [# /area] in Urine sediment by Automated countOrdered By: Sarah Dodd on 07-14-2024 Epithelial cells.squamous Auto (Urine sed) [#/Area] 5-9 [HPF] High 0-2 [facility] Erythrocyte distribution wid th [Ratio] by Automated countOrdered By: Sarah Dodd on 07-14-2024 Erythrocyte distribution width (RBC) [Ratio] 13.7 % Normal 11.9-15.3 [facility] Comment on above: Performed By: #### U HCG, ADDONUAPLUS #### [facility] [address] [place] [address] [place] Erythrocytes [#/area] in Uri ne sediment by Automated countOrdered By: Sarah Dodd on 07-14-2024 RBC Auto (Urine sed) [#/Area] 20-49 [HPF] High 0-4 [facility] Erythrocytes [#/volume] in B lood by Automated countOrdered By: Sarah Dodd on 07-14-2024 RBC (Bld) [#/Vol] 4.57 10*6/uL Normal 3.60-5.00 [facility] Comment on above: Performed By: #### U HCG, ADDONUAPLUS #### [facility] [address] [place] [address] [place] Glucose [Mass/volume] in Ser um or PlasmaOrdered By: Sarah Dodd on 07-14-2024 Glucose [Mass/Vol] 88 mg/dL Normal 70-100 [facility] Comment on above: ADA recommended refe rence rangeRandom Glucose Reference Range is dependent on time and content of last meal. Glucose of more than 200 mg/dL in a nonstressed, ambulatory subject supports the diagnosis of Diabetes Mellitus. Result Comment: [place] om Glucose Reference Range is dependent on time and content of last meal. Glucose of more than 200 mg/dL in a nonstressed, ambulatory subject supports the diagnosis of Diabetes Mellitus. ADA recommended reference range Performed By: #### U HCG, ADDONUAPLUS #### [facility] [address] [place] [address] [place] Glucose [Mass/volume] in Uri ne by Test stripOrdered By: Sarah Dodd on 07-14-2024 Glucose Test strip (U) [Mass/Vol] Normal mg/dL Normal [facility] HCG ( test) IA.rapi d Ql (U)Ordered By: PROVIDER TEMP on 07-14-2024 HCG ( test) Ql (U) Negative [facility] HCG,Urineon 07-14-2024 Beta HCG ( test) Ql (U) Negative Normal [facility] Comment on above: Order Comment: Name Collection Type:: Clean-Voided Midstream Result Comment: PERF ORMED BY: [place] [address] PATHOLOGIST AGRICULTURAL LOAN OFFICER CLAU ZAVALA M.D. Performed By: #### U HCG, ADDONUAPLUS #### [address] Hematocrit [Volume Fraction] of Blood by Automated countOrdered By: Sarah Dodd on 07-14-2024 Hematocrit (Bld) [Volume fraction] 33.4 % Low 34.0-46.4 [facility] Comment on above: Performed By: #### U HCG, ADDONUAPLUS #### [address] Hemoglobin Test strip Ql (U) Ordered By: Sarah Dodd on 07-14-2024 Hemoglobin Ql (U) 1+ High Negative [facility] Hemoglobin [Mass/volume] in BloodOrdered By: Sarah Dodd on 07-14-2024 Hemoglobin (Bld) [Mass/Vol] 10.8 g/dL Low 11.8-15.4 [facility] Comment on above: Performed By: #### U HCG, ADDONUAPLUS #### [address] Hepatic Panelon 07-14-2024 Albumin [Mass/Vol] 4.1 g/dL Normal 3.5-5.7 [facility] Comment on above: Performed By: #### U HCG, ADDONUAPLUS #### [address] Bilirubin,Indirect 0.3 mg/dL Normal [facility] Comment on above: Performed By: #### U HCG, ADDONUAPLUS #### [address] Bilirubin.indirect [Mass/Vol] 0.10 mg/dL Normal 0.03-0.18 [facility] Comment on above: Performed By: #### U HCG, ADDONUAPLUS #### [facility] [address] [place] [address] [place] Hyaline casts [#/area] in Ur ine sediment by Automated countOrdered By: Sarah Dodd on 07-14-2024 Hyaline casts Auto (Urine sed) [#/Area] None [LPF] 0-8 [facility] Ketones [Presence] in Urine by Test stripOrdered By: Sarah Dodd on 07-14-2024 Ketones Ql (U) 2+ High Negative [facility] Comment on above: Order Comment: Name Collection Type:: Clean-Voided Midstream Performed By: #### U HCG, ADDONUAPLUS #### [facility] [address] [place] [address] [place] Leukocyte esterase [Presence ] in Urine by Test stripOrdered By: Sarah Dodd on 07-14-2024 Leukocyte esterase Test strip Ql (U) Negative Normal Negative [facility] Comment on above: Order Comment: Name Collection Type:: Clean-Voided Midstream Performed By: #### U HCG, ADDONUAPLUS #### [facility] [address] [place] [address] [place] Leukocytes [#/area] in Urine sediment by Automated countOrdered By: Sarah Dodd on 07-14-2024 WBC Auto (Urine sed) [#/Area] 5-9 [HPF] High 0-4 [facility] Leukocytes [#/volume] correc delmer for nucleated erythrocytes in Blood by Automated counOrdered By: Sarah Dodd on 07-14-2024 WBC corrected for nucl RBC Auto (Bld) [#/Vol] 4.3 10*3/uL 3.8-11.6 [facility] Leukocytes [#/volume] in Blo od by Automated countOrdered By: Sarah Dodd on 07-14-2024 WBC (Bld) [#/Vol] 4.3 10*3/uL Normal 3.8-11.6 [facility] Comment on above: Performed By: #### U HCG, ADDONUAPLUS #### [facility] [address] [place] [address] [place] Lipase [Enzymatic activity/v olume] in Serum or PlasmaOrdered By: Sarah Dodd on 07-14-2024 Lipase [Catalytic activity/Vol] 45.0 U/L Normal 11.0-82.0 [facility] Comment on above: Result Comment: PERF ORMED BY: [place] [address] PATHOLOGIST AGRICULTURAL LOAN OFFICER CLAU ZAVALA M.D. Performed By: #### U HCG, ADDONUAPLUS #### [facility] [address] [place] [address] Lymphocytes [#/volume] in Bl ood by Automated countOrdered By: Sarah Dodd on 07-14-2024 Lymphocytes (Bld) [#/Vol] 1.0 10*3/uL Normal 1.00-4.8 [facility] Comment on above: Performed By: #### U HCG, ADDONUAPLUS #### [facility] [address] [place] [address] Lymphocytes/100 leukocytes i n Blood by Automated countOrdered By: Sarah Dodd on 07-14-2024 Lymphocytes/100 WBC (Bld) 23.2 % Normal . [facility] Comment on above: Performed By: #### U HCG, ADDONUAPLUS #### [facility] [address] [place] [address] MCH [Entitic mass] by Automa delmer countOrdered By: Sarah Dodd on 07-14-2024 MCH (RBC) [Entitic mass] 23.5 pg Low 24.7-34.3 [facility] Comment on above: Performed By: #### U HCG, ADDONUAPLUS #### [facility] [address] [place] [address] MCHC Auto (RBC) [Mass/Vol]Or dered By: Sarah Dodd on 07-14-2024 MCHC (RBC) [Mass/Vol] 32.2 g/dL 32.0-35.0 [facility] MCV [Entitic volume] by Auto mated countOrdered By: Sarah Dodd on 07-14-2024 MCV (RBC) [Entitic vol] 73.1 fL Low 80-100 [facility] Comment on above: Performed By: #### U HCG, ADDONUAPLUS #### [facility] [address] [place] [address] Monocyte distribution width [Entitic volume] in Blood by AutomatedOrdered By: Sarah Dodd on 07-14-2024 Monocyte distribution width Auto (Bld) [Entitic vol] 20.43 % High 0.00-20.00 [facility] Comment on above: For adults in ED, MD W > 20.0 may be associated with a higher risk of sepsis during the first 12 hrs of hospital admission Mucus [Presence] in Urine by AutomatedOrdered By: Sarah Dodd on 07-14-2024 Mucus Auto Ql (U) 2+ [LPF] Abnormal [facility] Neutrophils [#/volume] in Bl ood by Automated countOrdered By: Sarah Dodd on 07-14-2024 Neutrophils (Bld) [#/Vol] 2.7 10*3/uL Normal 1.8-7.7 [facility] Comment on above: Performed By: #### U HCG, ADDONUAPLUS #### [facility] [address] [place] [address] Nitrite Test strip Ql (U)Ord ered By: Sarah Dodd on 07-14-2024 Nitrite Ql (U) Negative Negative [facility] No Panel InformationOrdered By: Sarah Dodd on 07-14-2024 Estimated GFR (CKD-EPI) > 60.0 mL/Min [facility] Creatinine Clearance (Chem 107.14 [facility] Nucleated erythrocytes [Pres ence] in Blood by Automated countOrdered By: Sarah Dodd on 07-14-2024 Nucleated RBC Auto Ql (Bld) 0.1 /100{WBC} 0-0.5 [facility] Platelet mean volume [Entiti c volume] in Blood by Automated countOrdered By: Sarah Dodd on 07-14-2024 Platelet mean volume (Bld) [Entitic vol] 9.1 fL Normal 6.3-10.7 [facility] Comment on above: Performed By: #### U HCG, ADDONUAPLUS #### [facility] [address] [place], [place] [id number] [place] Platelets [#/volume] in Bloo d by Automated countOrdered By: Sarah Dodd on 07-14-2024 Platelets (Bld) [#/Vol] 168 10*3/uL Normal 150-450 [facility] Comment on above: Performed By: #### U HCG, ADDONUAPLUS #### [facility] [address] [place] [address] [place] Potassium [Moles/volume] in Serum or PlasmaOrdered By: Sarah Dodd on 07-14-2024 Potassium [Moles/Vol] 3.3 mmol/L Low 3.5-5.1 [facility] Comment on above: Performed By: #### U HCG, ADDONUAPLUS #### [address] Protein [Mass/volume] in Ser um or PlasmaOrdered By: Sarah Dodd on 07-14-2024 Protein [Mass/Vol] 7.2 g/dL Normal 6.4-8.9 [facility] Comment on above: Performed By: #### U HCG, ADDONUAPLUS #### [place] [address] [place] Protein [Mass/volume] in Uri ne by Test stripOrdered By: Sarah Dodd on 07-14-2024 Protein (U) [Mass/Vol] 20 mg/dL High Negative [facility] Comment on above: Order Comment: Name Collection Type:: Clean-Voided Midstream Performed By: #### U HCG, ADDONUAPLUS #### [place] [address] [place] Serum globulin measurement b y calculation (mass/volume)Ordered By: Sarah Dodd on 07-14-2024 Globulin (S) [Mass/Vol] 3.1 g/dL Normal [facility] Comment on above: Performed By: #### U HCG, ADDONUAPLUS #### [place] [address] [place] Serum or plasma albumin/glob ulin mass ratioOrdered By: Sarah Dodd on 07-14-2024 Albumin/Globulin [Mass ratio] 1.3 {ratio} Normal [facility] Comment on above: Performed By: #### U HCG, ADDONUAPLUS #### [address] Serum or plasma anion gap de terminationOrdered By: Sarah Dodd on 07-14-2024 Anion gap [Moles/Vol] 11.1 mmol/L Normal 6.0-15.0 [facility] Comment on above: Performed By: #### U HCG, ADDONUAPLUS #### [address] Serum or plasma non-glucuron idated bilirubin measurement (mass/volume)Ordered By: Sarah Dodd on 07-14-2024 Bilirubin.indirect [Mass/Vol] 0.3 mg/dL [facility] Sodium [Moles/volume] in Ser um or PlasmaOrdered By: Sarah Dodd on 07-14-2024 Sodium [Moles/Vol] 138 mmol/L Normal 136-145 [facility] Comment on above: Performed By: #### U HCG, ADDONUAPLUS #### [address] Specific gravity Test strip (U) [Rel density]Ordered By: Sarah Dodd on 07-14-2024 Specific gravity (U) [Rel density] 1.030 1.001-1.03 0 [facility] Urea nitrogen [Mass/volume] in Serum or PlasmaOrdered By: Sarah Dodd on 07-14-2024 Urea nitrogen [Mass/Vol] 9 mg/dL Normal 7-25 [facility] Comment on above: Performed By: #### U HCG, ADDONUAPLUS #### [address] Urine appearanceOrdered By: Sarah Dodd on 07-14-2024 Appearance (U) Clear Normal Clear [facility] Comment on above: Order Comment: Name Collection Type:: Clean-Voided Midstream Performed By: #### U HCG, ADDONUAPLUS #### [address] Urobilinogen Test strip (U) [Mass/Vol]Ordered By: Sarah Dodd on 07-14-2024 Urobilinogen (U) [Mass/Vol] 3 mg/dL High Normal [facility] pH of Urine by Test stripOrd ered By: Sarah Dodd on 07-14-2024 pH (U) 6.0 [pH] Normal 5.0-9.0 [facility] Comment on above: Order Comment: Name Collection Type:: Clean-Voided Midstream Performed By: #### U HCG, ADDONUAPLUS #### [facility] [address] [place] [id number] [facility] CHLAMYDIA/GC BY PCRon 2023 CHLAMYDIA/GC BY PCR [...] are dependent on adequate specimen collection. Normal [facility] Comment on above: Performed By: #### C GS #### [facility] ([id number]) [address] [place] [address], [address] [place] [address] VAGINITIS PANEL PCRon 2023 VAGINITIS PANEL PCR [...] clinical presentation to determine patient diagnosis. Normal [facility] Comment on above: Performed By: #### V PPCR #### [facility] ([id number]) [address] [facility], [address] [place] [address] B-Type Natriuretic Peptideon 11-24-2023 Natriuretic peptide B (Bld) [Mass/Vol] 13.0 pg/mL Normal 5-100 [facility] Comment on above: Result Comment: PERF ORMED BY: [place] [address] PATHOLOGIST AGRICULTURAL LOAN OFFICER CLAU ZAVALA M.D. Performed By: #### U HCG, ADDONUAPLUS #### [address] Basic Metabolic Panelon Anion gap [Moles/Vol] 8.4 mmol/L Normal 6.0-15.0 [facility] Comment on above: Performed By: #### U HCG, ADDONUAPLUS #### [address] Calcium [Mass/Vol] 8.8 mg/dL Normal 8.6-10.3 [facility] Comment on above: Performed By: #### U HCG, ADDONUAPLUS #### [place] [address] [place] Chloride [Moles/Vol] 104 mmol/L Normal 98-107 [facility] Comment on above: Performed By: #### U HCG, ADDONUAPLUS #### [place] [address] [place] CO2 [Moles/Vol] 27.5 mmol/L Normal 21.0-31.0 [facility] Comment on above: Performed By: #### U HCG, ADDONUAPLUS #### [address] Creatinine [Mass/Vol] 0.77 mg/dL Normal 0.60-1.20 [facility] Comment on above: Performed By: #### U HCG, ADDONUAPLUS #### [place] [address] [place] Creatinine Clr Calc Pharmacy 103.65 Normal [facility] Comment on above: Result Comment: PERF ORMED BY: [place] [address] PATHOLOGIST AGRICULTURAL LOAN OFFICER CLAU ZAVALA M.D. Performed By: #### U HCG, ADDONUAPLUS #### [place] [address] [place] GFR/1.73 sq M.predicted MDRD (S/P/Bld) [Vol rate/Area] mL/min/{1.73_m2} Normal [facility] Comment on above: Performed By: #### U HCG, ADDONUAPLUS #### [address] Glucose [Mass/Vol] 103 mg/dL High 70-100 [facility] Comment on above: Result Comment: [facility] Glucose Reference Range is dependent on time and content of last meal. Glucose of more than 200 mg/dL in a nonstressed, ambulatory subject supports the diagnosis of Diabetes Mellitus. ADA recommended reference range Performed By: #### U HCG, ADDONUAPLUS #### [address] Potassium [Moles/Vol] 3.9 mmol/L Normal 3.5-5.1 [facility] Comment on above: Performed By: #### U HCG, ADDONUAPLUS #### [place] [address] [place] Sodium [Moles/Vol] 136 mmol/L Normal 136-145 [facility] Comment on above: Performed By: #### U HCG, ADDONUAPLUS #### [address] Urea nitrogen [Mass/Vol] 16 mg/dL Normal 7-25 [facility] Comment on above: Performed By: #### U HCG, ADDONUAPLUS #### [place] [address] [place] Complete Blood Count Auto Di ffon 11-24-2023 Basophils (Bld) [#/Vol] 0.0 10*3/uL Normal 0.0-0.2 [facility] Comment on above: Result Comment: PERF ORMED BY: [place] [address] PATHOLOGIST AGRICULTURAL LOAN OFFICER CLAU ZAVALA M.D. Performed By: #### U HCG, ADDONUAPLUS #### [address] Basophils/100 WBC (Bld) 0.6 % Normal . [facility] Comment on above: Performed By: #### U HCG, ADDONUAPLUS #### [address] Eosinophils (Bld) [#/Vol] 0.1 10*3/uL Normal 0.0-0.45 [facility] Comment on above: Performed By: #### U HCG, ADDONUAPLUS #### [address] Eosinophils/100 WBC (Bld) 1.8 % Normal . [facility] Comment on above: Performed By: #### U HCG, ADDONUAPLUS #### [address] Erythrocyte distribution width (RBC) [Ratio] 14.3 % Normal 11.9-15.3 [facility] Comment on above: Performed By: #### U HCG, ADDONUAPLUS #### [address] Hematocrit (Bld) [Volume fraction] 34.8 % Normal 34.0-46.4 [facility] Comment on above: Performed By: #### U HCG, ADDONUAPLUS #### [address] Hemoglobin (Bld) [Mass/Vol] 10.9 g/dL Low 11.8-15.4 [facility] Comment on above: Performed By: #### U HCG, ADDONUAPLUS #### [address] Lymphocytes (Bld) [#/Vol] 1.9 10*3/uL Normal 1.00-4.8 [facility] Comment on above: Performed By: #### U HCG, ADDONUAPLUS #### [address] Lymphocytes/100 WBC (Bld) 22.7 % Normal . [facility] Comment on above: Performed By: #### U HCG, ADDONUAPLUS #### [address] MCH (RBC) [Entitic mass] 23.1 pg Low 24.7-34.3 [facility] Comment on above: Performed By: #### U HCG, ADDONUAPLUS #### [address] MCV (RBC) [Entitic vol] 74.1 fL Low 80-100 [facility] Comment on above: Performed By: #### U HCG, ADDONUAPLUS #### [address] Mean Corpuscular HGB Conc 31.3 g/dL Low 32.0-35.0 [facility] Comment on above: Performed By: #### U HCG, ADDONUAPLUS #### [address] Monocytes (Bld) [#/Vol] 0.5 10*3/uL Normal 0.0-0.8 [facility] Comment on above: Performed By: #### U HCG, ADDONUAPLUS #### [place] [address] [place] Monocytes/100 WBC (Bld) 18.34 % Normal 0.00-20.00 [facility] Comment on above: Performed By: #### U HCG, ADDONUAPLUS #### [address] Monocytes/100 WBC (Bld) 6.4 % Normal . [facility] Comment on above: Performed By: #### U HCG, ADDONUAPLUS #### [place] [address] [place] Neutrophils (Bld) [#/Vol] 5.7 10*3/uL Normal 1.8-7.7 [facility] Comment on above: Performed By: #### U HCG, ADDONUAPLUS #### [place] [address] [place] Neutrophils/100 WBC (Bld) 68.5 % Normal . [facility] Comment on above: Performed By: #### U HCG, ADDONUAPLUS #### [address] NRBC% 0.1 /100{WBC} Normal 0-0.5 [facility] Comment on above: Performed By: #### U HCG, ADDONUAPLUS #### [address] Platelet mean volume (Bld) [Entitic vol] 9.1 fL Normal 6.3-10.7 [facility] Comment on above: Performed By: #### U HCG, ADDONUAPLUS #### [place] [address] [place] Platelets (Bld) [#/Vol] 191 10*3/uL Normal 150-450 [facility] Comment on above: Performed By: #### U HCG, ADDONUAPLUS #### [place] [address] [place] RBC (Bld) [#/Vol] 4.70 10*6/uL Normal 3.60-5.00 [facility] Comment on above: Performed By: #### U HCG, ADDONUAPLUS #### [place] [address] [place] WBC (Bld) [#/Vol] 8.3 10*3/uL Normal 3.8-11.6 [facility] Comment on above: Performed By: #### U HCG, ADDONUAPLUS #### [place] [address] [place] Creatine Kinaseon 11-24-2023 CK [Catalytic activity/Vol] 97 U/L Normal 30-223 [facility] Comment on above: Performed By: #### U HCG, ADDONUAPLUS #### [facility] [address] [place] [address] [place] Dipstick and Microscopicon 0 11-24-2023 Appearance (U) Clear Normal Clear [facility] Comment on above: Order Comment: Name Collection Type:: Clean-Voided Midstream Performed By: #### U HCG, ADDONUAPLUS #### [facility] [address] [place] [address] [place] Bacteria,Urine None Seen Normal None Seen [facility] Comment on above: Order Comment: Name Collection Type:: Clean-Voided Midstream Performed By: #### U HCG, ADDONUAPLUS #### [place] [address] [place] Bilirubin,Urine Negative Normal Negative [facility] Comment on above: Order Comment: Name Collection Type:: Clean-Voided Midstream Performed By: #### U HCG, ADDONUAPLUS #### [place] [address] [place] Color (U) Yellow Normal Yellow [facility] Comment on above: Order Comment: Name Collection Type:: Clean-Voided Midstream Performed By: #### U HCG, ADDONUAPLUS #### [place] [address] [place] Glucose Ql (U) Normal Normal Normal [facility] Comment on above: Order Comment: Name Collection Type:: Clean-Voided Midstream Performed By: #### U HCG, ADDONUAPLUS #### [place] [address] [place] Hyaline Casts,Urine 0-8 Normal 0-8 [facility] Comment on above: Order Comment: Name Collection Type:: Clean-Voided Midstream Performed By: #### U HCG, ADDONUAPLUS #### [place] [address] [place] Ketones Ql (U) Negative Normal Negative [facility] Comment on above: Order Comment: Name Collection Type:: Clean-Voided Midstream Performed By: #### U HCG, ADDONUAPLUS #### [address] Leukocyte esterase Test strip Ql (U) Negative Normal Negative [facility] Comment on above: Order Comment: Name Collection Type:: Clean-Voided Midstream Performed By: #### U HCG, ADDONUAPLUS #### [address] Nitrite,Urine Negative Normal Negative [facility] Comment on above: Order Comment: Name Collection Type:: Clean-Voided Midstream Performed By: #### U HCG, ADDONUAPLUS #### [address] Occult Blood,Urine 1+ High Negative [facility] Comment on above: Order Comment: Name Collection Type:: Clean-Voided Midstream Performed By: #### U HCG, ADDONUAPLUS #### [address] pH (U) 7.0 [pH] Normal 5.0-9.0 [facility] Comment on above: Order Comment: Name Collection Type:: Clean-Voided Midstream Performed By: #### U HCG, ADDONUAPLUS #### [address] Protein,Urine Negative Normal Negative [facility] Comment on above: Order Comment: Name Collection Type:: Clean-Voided Midstream Performed By: #### U HCG, ADDONUAPLUS #### [place] [address] [place] RBC,Urine 10-19 High 0-4 [facility] Comment on above: Order Comment: Name Collection Type:: Clean-Voided Midstream Performed By: #### U HCG, ADDONUAPLUS #### [place] [address] [place] Specificy [place],Urine 1.022 Normal 1.001-1.03 0 [facility] Comment on above: Order Comment: Name Collection Type:: Clean-Voided Midstream Performed By: #### U HCG, ADDONUAPLUS #### [address] Squamous Epithelial Cell,Urine 3-4 High 0-2 [facility] Comment on above: Order Comment: Name Collection Type:: Clean-Voided Midstream Performed By: #### U HCG, ADDONUAPLUS #### [address] Urobilinogen,Urine Normal Normal Normal [facility] Comment on above: Order Comment: Name Collection Type:: Clean-Voided Midstream Performed By: #### U HCG, ADDONUAPLUS #### [address] WBC,Urine 1-2 Normal 0-4 [facility] Comment on above: Order Comment: Name Collection Type:: Clean-Voided Midstream Performed By: #### U HCG, ADDONUAPLUS #### [address] ECG 12 lead ECGon 11-24-2023 ECG 12 lead ECG [facility] [place] [address] Electrocardiograph Report Signed Patient: Leandra Fonseca MR#: [id number] : 1990 Acct:[id number] Age/Sex: 33 / F ADM Date: 11/24/23 Loc: ER Room: Type: [facility] ER Attending Dr: Ordering Provider: Jim [...] was found Confirmed by Jim Vega DO ([id number]) on 11/24/2023 9:23:04 AM Referred By: Electronically Signed By:Jim Vega DO Transcribed By: MUS Signed By Jim Vega DO 03/09/2 4 0923 Normal [facility] HCG,Urineon 11-24-2023 Beta HCG ( test) Ql (U) Negative Normal [facility] Comment on above: Order Comment: Name Collection Type:: Clean-Voided Midstream Result Comment: PERF ORMED BY: [place] [address] PATHOLOGIST AGRICULTURAL LOAN OFFICER CLAU ZAVALA M.D. Performed By: #### U HCG, ADDONUAPLUS #### [address] Hepatic Panelon 11-24-2023 Albumin [Mass/Vol] 4.0 g/dL Normal 3.5-5.7 [facility] Comment on above: Performed By: #### U HCG, ADDONUAPLUS #### [address] Albumin/Globulin [Mass ratio] 1.4 {ratio} Normal [facility] Comment on above: Performed By: #### U HCG, ADDONUAPLUS #### [address] ALP [Catalytic activity/Vol] 42 U/L Normal 34-104 [facility] Comment on above: Performed By: #### U HCG, ADDONUAPLUS #### [address] ALT [Catalytic activity/Vol] 11 U/L Normal 7-52 [facility] Comment on above: Performed By: #### U HCG, ADDONUAPLUS #### [address] AST [Catalytic activity/Vol] 12 U/L Low 13-39 [facility] Comment on above: Performed By: #### U HCG, ADDONUAPLUS #### [address] Bilirubin [Mass/Vol] 0.4 mg/dL Normal 0.3-1.0 [facility] Comment on above: Performed By: #### U HCG, ADDONUAPLUS #### [address] Bilirubin,Indirect 0.3 mg/dL Normal [facility] Comment on above: Performed By: #### U HCG, ADDONUAPLUS #### [address] Bilirubin.indirect [Mass/Vol] 0.10 mg/dL Normal 0.03-0.18 [facility] Comment on above: Performed By: #### U HCG, ADDONUAPLUS #### [address] Globulin (S) [Mass/Vol] 2.9 g/dL Normal [facility] Comment on above: Performed By: #### U HCG, ADDONUAPLUS #### [address] Protein [Mass/Vol] 6.9 g/dL Normal 6.4-8.9 [facility] Comment on above: Performed By: #### U HCG, ADDONUAPLUS #### [address] Partial Thromboplastin Timeo n 11-24-2023 aPTT Coag (Bld) [Time] 30.8 s Normal 25.1-36.5 [facility] Comment on above: Result Comment: A he matocrit value greater than 55% may lead to inaccurate results in coagulation testing. Patients having hematocrit values >55% require a special collection tube for coagulation studies. Please contact the laboratory at [phone] for redraw instructions. PERFORMED BY: [place] [address] PATHOLOGIST AGRICULTURAL LOAN OFFICER CLAU ZAVALA M.D. Performed By: #### U HCG, ADDONUAPLUS #### [address] Prothrombin Time INRon 11-23 INR Coag (PPP) [Relative time] 1.1 {INR} Normal [facility] Comment on above: Result Comment: [...] Performed By: #### U HCG, ADDONUAPLUS #### [address] PT Coag (PPP) [Time] 12.9 s Normal 9.0-12.9 [facility] Comment on above: Result Comment: A he matocrit value greater than 55% may lead to inaccurate results in coagulation testing. Patients having hematocrit values >55% require a special collection tube for coagulation studies. Please contact the laboratory at [phone] for redraw instructions. Performed By: #### U HCG, ADDONUAPLUS #### [address] Troponin I High Sensitivityo n 11-24-2023 Troponin I High Sensitivity < 2.3 Normal 0.0-15.0 [facility] Comment on above: Result Comment: PERF ORMED BY: [place] [address] PATHOLOGIST AGRICULTURAL LOAN OFFICER CLAU ZAVALA M.D. Performed By: #### U HCG, ADDONUAPLUS #### [place] [id number] [facility] XR chest 1V portableon 11-23 XR chest 1V portable [facility] [place] [address] [place] [address] XRay Report Signed Patient: Leandra Fonseca MR#: [id number] [id number] : 1990 Acct:[id number] Age/Sex: 33 / F ADM Date: 11/24/23 Loc: ER Room: Type: [facility] ER Attending Dr: Copies to: Jim [...] Michell Miller M.D.11/24/2023 11:32 AM Dictation Location: [place] [address] Transcribed By: [facility] 11/24/23 1132 Dictated By: Michell Miller MD 11/24/23 1131 Signed By: 11/24/23 1132 Normal [facility] Basic Metabolic Panelon 10-19 Anion gap [Moles/Vol] 11.0 mmol/L Normal 6.0-15.0 [facility] Comment on above: Performed By: #### H EPATIC, PTT, BMP, LIPASE, PT, CBC #### [address] Calcium [Mass/Vol] 8.6 mg/dL Normal 8.6-10.3 [facility] Comment on above: Performed By: #### H EPATIC, PTT, BMP, LIPASE, PT, CBC #### [facility] [address] [place] [address] [place] Chloride [Moles/Vol] 107 mmol/L Normal 98-107 [facility] Comment on above: Performed By: #### H EPATIC, PTT, BMP, LIPASE, PT, CBC #### [facility] [address] CO2 [Moles/Vol] 22.9 mmol/L Normal 21.0-31.0 [facility] Comment on above: Performed By: #### H EPATIC, PTT, BMP, LIPASE, PT, CBC #### [facility] [address] [id number] [place] Creatinine [Mass/Vol] 0.64 mg/dL Normal 0.60-1.20 [facility] [facility] Comment on above: Performed By: #### H EPATIC, PTT, BMP, LIPASE, PT, CBC #### [facility] [address] [id number] [place] [facility]inine [facility] 124.50 Normal [facility] Comment on above: Performed By: #### H EPATIC, PTT, BMP, LIPASE, PT, CBC #### [address] GFR/1.73 sq M.predicted MDRD (S/P/Bld) [Vol rate/Area] mL/min/{1.73_m2} Normal [facility] Comment on above: Performed By: #### H EPATIC, PTT, BMP, LIPASE, PT, CBC #### [address] Glucose [Mass/Vol] 94 mg/dL Normal 70-100 [facility] Comment on above: Result Comment: [facility] Glucose Reference Range is dependent on time and content of last meal. Glucose of more than 200 mg/dL in a nonstressed, ambulatory subject supports the diagnosis of Diabetes Mellitus. ADA recommended reference range Performed By: #### H EPATIC, PTT, BMP, LIPASE, PT, CBC #### [address] Potassium [Moles/Vol] 3.9 mmol/L Normal 3.5-5.1 [facility] Comment on above: Performed By: #### H EPATIC, PTT, BMP, LIPASE, PT, CBC #### [address] Sodium [Moles/Vol] 137 mmol/L Normal 136-145 [facility] Comment on above: Performed By: #### H EPATIC, PTT, BMP, LIPASE, PT, CBC #### [address] Urea nitrogen [Mass/Vol] 12 mg/dL Normal 7-25 [facility] Comment on above: Performed By: #### H EPATIC, PTT, BMP, LIPASE, PT, CBC #### [address] abdomen pelvis w compa CT abdomen pelvis w [facility] [address] [place] [address] CT Scan Report Signed Patient: Leandra Fonseca MR#: [id number] : 1990 Acct:[id number] Age/Sex: 33 / F ADM Date: 11/13/23 Loc: ER Room: Type: [facility] ER Attending Dr: Copies to: Frank Silva [...] Rebecca Ybarra M.D.11/13/2023 10:47 AM Dictation Location: [place] [address] Transcribed By: [facility] 11/13/23 1047 Dictated By: Rebecca Ybarra II, MD 11/13/23 1036 Signed By: 11/13/23 1047 Normal [facility] Complete Blood Count Auto Di ffon 11-13-2023 Basophils (Bld) [#/Vol] 0.1 10*3/uL Normal 0.0-0.2 [facility] Comment on above: Result Comment: PERF ORMED BY: [place] [address] PATHOLOGIST AGRICULTURAL LOAN OFFICER CLAU ZAVALA M.D. Performed By: #### H EPATIC, PTT, BMP, LIPASE, PT, CBC #### [address] Basophils/100 WBC (Bld) 0.7 % Normal . [facility] Comment on above: Performed By: #### H EPATIC, PTT, BMP, LIPASE, PT, CBC #### [address] Eosinophils (Bld) [#/Vol] 0.1 10*3/uL Normal 0.0-0.45 [facility] Comment on above: Performed By: #### H EPATIC, PTT, BMP, LIPASE, PT, CBC #### [address] Eosinophils/100 WBC (Bld) 1.5 % Normal . [facility] Comment on above: Performed By: #### H EPATIC, PTT, BMP, LIPASE, PT, CBC #### [address] Erythrocyte distribution width (RBC) [Ratio] 14.6 % Normal 11.9-15.3 [facility] Comment on above: Performed By: #### H EPATIC, PTT, BMP, LIPASE, PT, CBC #### [address] Hematocrit (Bld) [Volume fraction] 34.1 % Normal 34.0-46.4 [facility] Comment on above: Performed By: #### H EPATIC, PTT, BMP, LIPASE, PT, CBC #### [address] Hemoglobin (Bld) [Mass/Vol] 10.9 g/dL Low 11.8-15.4 [facility] Comment on above: Performed By: #### H EPATIC, PTT, BMP, LIPASE, PT, CBC #### [address] Lymphocytes (Bld) [#/Vol] 1.9 10*3/uL Normal 1.00-4.8 [facility] Comment on above: Performed By: #### H EPATIC, PTT, BMP, LIPASE, PT, CBC #### [address] Lymphocytes/100 WBC (Bld) 23.7 % Normal . [facility] Comment on above: Performed By: #### H EPATIC, PTT, BMP, LIPASE, PT, CBC #### [address] MCH (RBC) [Entitic mass] 23.7 pg Low 24.7-34.3 [facility] Comment on above: Performed By: #### H EPATIC, PTT, BMP, LIPASE, PT, CBC #### [address] MCV (RBC) [Entitic vol] 74.1 fL Low 80-100 [facility] Comment on above: Performed By: #### H EPATIC, PTT, BMP, LIPASE, PT, CBC #### [address] Mean Corpuscular HGB Conc 31.9 g/dL Low 32.0-35.0 [facility] Comment on above: Performed By: #### H EPATIC, PTT, BMP, LIPASE, PT, CBC #### [address] Monocytes (Bld) [#/Vol] 0.5 10*3/uL Normal 0.0-0.8 [facility] Comment on above: Performed By: #### H EPATIC, PTT, BMP, LIPASE, PT, CBC #### [address] Monocytes/100 WBC (Bld) 18.59 % Normal 0.00-20.00 [facility] Comment on above: Performed By: #### H EPATIC, PTT, BMP, LIPASE, PT, CBC #### [address] Monocytes/100 WBC (Bld) 6.9 % Normal . [facility] Comment on above: Performed By: #### H EPATIC, PTT, BMP, LIPASE, PT, CBC #### [address] Neutrophils (Bld) [#/Vol] 5.3 10*3/uL Normal 1.8-7.7 [facility] Comment on above: Performed By: #### H EPATIC, PTT, BMP, LIPASE, PT, CBC #### [address] Neutrophils/100 WBC (Bld) 67.2 % Normal . [facility] Comment on above: Performed By: #### H EPATIC, PTT, BMP, LIPASE, PT, CBC #### [address] NRBC% 0.1 /100{WBC} Normal 0-0.5 [facility] Comment on above: Performed By: #### H EPATIC, PTT, BMP, LIPASE, PT, CBC #### [address] Platelet mean volume (Bld) [Entitic vol] 9.2 fL Normal 6.3-10.7 [facility] Comment on above: Performed By: #### H EPATIC, PTT, BMP, LIPASE, PT, CBC #### [place] [address] [place] Platelets (Bld) [#/Vol] 199 10*3/uL Normal 150-450 [facility] Comment on above: Performed By: #### H EPATIC, PTT, BMP, LIPASE, PT, CBC #### [facility] [address] RBC (Bld) [#/Vol] 4.60 10*6/uL Normal 3.60-5.00 [facility] Comment on above: Performed By: #### H EPATIC, PTT, BMP, LIPASE, PT, CBC #### [facility] [address] WBC (Bld) [#/Vol] 7.9 10*3/uL Normal 3.8-11.6 [facility] Comment on above: Performed By: #### H EPATIC, PTT, BMP, LIPASE, PT, CBC #### [address] Dipstick and Microscopicon 0 11-13-2023 Appearance (U) Clear Normal Clear [facility] Comment on above: Order Comment: Name Collection Type:: Clean-Voided Midstream Performed By: #### A DDONUAPLUS UHCG ####[address] Bacteria,Urine None Seen Normal None Seen [facility] Comment on above: Order Comment: Name Collection Type:: Clean-Voided Midstream Performed By: #### A DDONUAPLUS UHCG ####[address] Bilirubin,Urine Negative Normal Negative [facility] Comment on above: Order Comment: Name Collection Type:: Clean-Voided Midstream Performed By: #### A DDONUAPLUS UHCG ####[address] Color (U) Yellow Normal Yellow [facility] Comment on above: Order Comment: Name Collection Type:: Clean-Voided Midstream Performed By: #### A DDONUAPLUS UHCG ####[address] [place] [address] [facility] Glucose Ql (U) Normal Normal Normal [facility] Comment on above: Order Comment: Name Collection Type:: Clean-Voided Midstream Performed By: #### A DDONUAPLUS, UHCG ####[address] [facility] Hyaline Casts,Urine None Seen Normal 0-8 [facility] Comment on above: Order Comment: Name Collection Type:: Clean-Voided Midstream Performed By: #### A DDONUAPLUS, UHCG ####[address] [facility] Ketones Ql (U) Negative Normal Negative [facility] Comment on above: Order Comment: Name Collection Type:: Clean-Voided Midstream Performed By: #### A DDONUAPLUS, UHCG ####[address] [facility] Leukocyte esterase Test strip Ql (U) Negative Normal Negative [facility] Comment on above: Order Comment: Name Collection Type:: Clean-Voided Midstream Performed By: #### A DDONUAPLUS, UHCG ####[place] [id number] [facility] Nitrite,Urine Negative Normal Negative [facility] Comment on above: Order Comment: Name Collection Type:: Clean-Voided Midstream Performed By: #### A DDONUAPLUS, UHCG ####[address] [facility] Occult Blood,Urine 1+ High Negative [facility] Comment on above: Order Comment: Name Collection Type:: Clean-Voided Midstream Performed By: #### A DDONUAPLUS, UHCG ####[address] [facility] pH (U) 6.5 [pH] Normal 5.0-9.0 [facility] Comment on above: Order Comment: Name Collection Type:: Clean-Voided Midstream Performed By: #### A DDONUAPLUS, UHCG ####[place] [id number] [place] Protein,Urine Negative Normal Negative [facility] Comment on above: Order Comment: Name Collection Type:: Clean-Voided Midstream Performed By: #### A DDONUAPLUS, UHCG ####[address] RBC,Urine 5-9 High 0-4 [facility] Comment on above: Order Comment: Name Collection Type:: Clean-Voided Midstream Performed By: #### A DDONUAPLUS, CG ####[address] Specificy [place],Urine 1.011 Normal 1.001-1.03 0 [facility] Comment on above: Order Comment: Name Collection Type:: Clean-Voided Midstream Performed By: #### A DDONUAPLUS, UHCG ####[address] Squamous Epithelial Cell,Urine None Seen Normal 0-2 [facility] Comment on above: Order Comment: Name Collection Type:: Clean-Voided Midstream Performed By: #### A DDONUAPLUS, CG ####[address] Urobilinogen,Urine Normal Normal Normal [facility] Comment on above: Order Comment: Name Collection Type:: Clean-Voided Midstream Performed By: #### A DDONUAPLUS, CG ####[address] WBC LM.HPF (Urine sed) [#/Area] 0 /[HPF] Normal 0-4 [facility] Comment on above: Order Comment: Name Collection Type:: Clean-Voided Midstream Performed By: #### A DDONUAPLUS, UHCG ####[address] HCG,Urineon 11-13-2023 Beta HCG ( test) Ql (U) Negative Normal [facility] Comment on above: Order Comment: Name Collection Type:: Clean-Voided Midstream Result Comment: PERF ORMED BY: [place] [address] PATHOLOGIST AGRICULTURAL LOAN OFFICER CLAU ZAVALA M.D. Performed By: #### U HCG, ADDONUAPLUS #### [address] Hepatic Panelon 11-13-2023 Albumin [Mass/Vol] 4.1 g/dL Normal 3.5-5.7 [facility] Comment on above: Performed By: #### H EPATIC, PTT, BMP, LIPASE, PT, CBC #### [address] Albumin/Globulin [Mass ratio] 1.5 {ratio} Normal [facility] Comment on above: Performed By: #### H EPATIC, PTT, BMP, LIPASE, PT, CBC #### [address] ALP [Catalytic activity/Vol] 39 U/L Normal 34-104 [facility] Comment on above: Performed By: #### H EPATIC, PTT, BMP, LIPASE, PT, CBC #### [address] ALT [Catalytic activity/Vol] 10 U/L Normal 7-52 [facility] Comment on above: Performed By: #### H EPATIC, PTT, BMP, LIPASE, PT, CBC #### [address] AST [Catalytic activity/Vol] 12 U/L Low 13-39 [facility] Comment on above: Performed By: #### H EPATIC, PTT, BMP, LIPASE, PT, CBC #### [address] Bilirubin [Mass/Vol] 0.4 mg/dL Normal 0.3-1.0 [facility] Comment on above: Performed By: #### H EPATIC, PTT, BMP, LIPASE, PT, CBC #### [address] Bilirubin,Indirect 0.3 mg/dL Normal [facility] Comment on above: Performed By: #### H EPATIC, PTT, BMP, LIPASE, PT, CBC #### [address] Bilirubin.indirect [Mass/Vol] 0.10 mg/dL Normal 0.03-0.18 [facility] Comment on above: Performed By: #### H EPATIC, PTT, BMP, LIPASE, PT, CBC #### [address] Globulin (S) [Mass/Vol] 2.8 g/dL Normal [facility] Comment on above: Performed By: #### H EPATIC, PTT, BMP, LIPASE, PT, CBC #### [address] Protein [Mass/Vol] 6.9 g/dL Normal 6.4-8.9 [facility] Comment on above: Performed By: #### H EPATIC, PTT, BMP, LIPASE, PT, CBC #### [address] Lipaseon 11-13-2023 Lipase [Catalytic activity/Vol] 39.0 U/L Normal 11.0-82.0 [facility] Comment on above: Result Comment: PERF ORMED BY: [place] [address] PATHOLOGIST AGRICULTURAL LOAN OFFICER CLAU ZAVALA M.D. Performed By: #### H EPATIC, PTT, BMP, LIPASE, PT, CBC #### [address] Partial Thromboplastin Timeo n 11-13-2023 aPTT Coag (Bld) [Time] 29.8 s Normal 25.1-36.5 [facility] Comment on above: Result Comment: A he matocrit value greater than 55% may lead to inaccurate results in coagulation testing. Patients having hematocrit values >55% require a special collection tube for coagulation studies. Please contact the laboratory at [phone] for redraw instructions. PERFORMED BY: [place] [address] PATHOLOGIST AGRICULTURAL LOAN OFFICER CLAU ZAVALA M.D. Performed By: #### H EPATIC, PTT, BMP, LIPASE, PT, CBC #### [facility] [id number] [facility] Prothrombin Time INRon 11-13 INR Coag (PPP) [Relative time] 1.0 {INR} Normal [facility] Comment on above: Result Comment: [...] EPATIC, PTT, BMP, LIPASE, PT, CBC #### [facility] [id number] [facility] PT Coag (PPP) [Time] 12.0 s Normal 9.0-12.9 [facility] Comment on above: Result Comment: A he matocrit value greater than 55% may lead to inaccurate results in coagulation testing. Patients having hematocrit values >55% require a special collection tube for coagulation studies. Please contact the laboratory at [phone] for redraw instructions. Performed By: #### H EPATIC, PTT, BMP, LIPASE, PT, CBC #### [facility] [id number] [facility] Physician Referralon [facility] Physician Referral [id number] Normal [facility] Alanine aminotransferase [En zymatic activity/volume] in Serum or PlasmaOrdered By: Kelly Hough on 09-27-2023 ALT [Catalytic activity/Vol] 9 U/L Normal - [facility] Comment on above: Performed By: #### C MP, FE and TIBC, CONSTANTINO, CBC, [id number] ####[facility] [place] [id number] [facility] Albumin [Mass/volume] in Ser um or Plasma by Bromocresol green (BCG) dye binding methoOrdered By: Kelly Ryannemesio on 09-27-2023 Albumin BCG dye [Mass/Vol] 4.3 g/dL 3.5-5.7 [facility] Alkaline phosphatase [Enzyma tic activity/volume] in Serum or PlasmaOrdered By: Kelly Ryannemesio on 09-27-2023 ALP [Catalytic activity/Vol] 41 U/L Normal 34-104 [facility] Comment on above: Performed By: #### C MP, FE and TIBC, CONSTANTINO, CBC, [id number] ####[address] Aspartate aminotransferase [ Enzymatic activity/volume] in Serum or PlasmaOrdered By: Kelly Ryannemesio on 09-27-2023 AST [Catalytic activity/Vol] 10 U/L Low 13-39 [facility] Comment on above: Performed By: #### C MP, FE and TIBC, CONSTANTINO, CBC, [id number] ####[address] Automated basophil %Ordered By: Kelly Ryannemesio on 09-27-2023 Basophils/100 WBC (Bld) 0.3 % Normal . [facility] Comment on above: Performed By: #### C MP, FE and TIBC, CONSTANTINO, CBC, [id number] ####[address] Automated basophil countOrde red By: Kelly Ryannemesio on 09-27-2023 Basophils (Bld) [#/Vol] 0.0 10*3/uL Normal 0.0-0.2 [facility] Comment on above: Result Comment: PERF ORMED BY: [facility] [address] [place] [address] PATHOLOGIST AGRICULTURAL LOAN OFFICER CLAU ZAVALA M.D. Performed By: #### C MP, FE and TIBC, CONSTANTINO, CBC, [id number] ####[address] Automated blood monocyte cou ntOrdered By: Kelly Ryannemesio on 09-27-2023 Monocytes (Bld) [#/Vol] 0.4 10*3/uL Normal 0.0-0.8 [facility] Comment on above: Performed By: #### C MP, FE and TIBC, CONSTANTINO, CBC, [id number] ####[address] Automated eosinophil %Ordere d By: Kelly France on 09-27-2023 Eosinophils/100 WBC (Bld) 0.8 % Normal . [facility] Comment on above: Performed By: #### C MP, FE and TIBC, CONSTANTINO, CBC, [id number] ####[address] Automated eosinophil countOr dered By: Kelly Ryannemesio on 09-27-2023 Eosinophils (Bld) [#/Vol] 0.1 10*3/uL Normal 0.0-0.45 [facility] Comment on above: Performed By: #### C MP, FE and TIBC, CONSTANTINO, CBC, [id number] ####[address] Automated monocyte %Ordered By: Kelly France on 09-27-2023 Monocytes/100 WBC (Bld) 5.3 % Normal . [facility] Comment on above: Performed By: #### C MP, FE and TIBC, CONSTANTINO, CBC, [id number] ####[address] Automated neutrophil %Ordere d By: Kelly France on 09-27-2023 Neutrophils/100 WBC (Bld) 68.9 % Normal . [facility] Comment on above: Performed By: #### C MP, FE and TIBC, CONSTANTINO, CBC, [id number] ####[address] Bilirubin.total [Mass/volume ] in Serum or PlasmaOrdered By: Kelly France on 09-27-2023 Bilirubin [Mass/Vol] 0.7 mg/dL Normal 0.3-1.0 [facility] Comment on above: Performed By: #### C MP, FE and TIBC, CONSTANTINO, CBC, [id number] ####[address] Calcium [Mass/volume] in Ser um or PlasmaOrdered By: Kelly Hough on 09-27-2023 Calcium [Mass/Vol] 9.0 mg/dL Normal 8.6-10.3 [facility] Comment on above: Performed By: #### C MP, FE and TIBC, CONSTANTINO, CBC, [id number] ####[address] Carbon dioxide, total [Moles /volume] in Serum or PlasmaOrdered By: Kelly Ryanmagnoliacristel on 09-27-2023 CO2 [Moles/Vol] 29.3 mmol/L Normal 21.0-31.0 [facility] Comment on above: Performed By: #### C MP, FE and TIBC, CONSTANTINO, CBC, [id number] ####[address] Chloride [Moles/volume] in S salas or PlasmaOrdered By: Kelly Ryannemesio on 09-27-2023 Chloride [Moles/Vol] 107 mmol/L Normal 98-107 [facility] Comment on above: Performed By: #### C MP, FE and TIBC, CONSTANTINO, CBC, [id number] ####[address] Complete Blood Count Auto Di ffon 09-27-2023 Mean Corpuscular HGB Conc 31.6 g/dL Low 32.0-35.0 [facility] Comment on above: Performed By: #### C MP, FE and TIBC, CONSTANTINO, CBC, [id number] ####[address] NRBC% 0.1 /100{WBC} Normal 0-0.5 [facility] Comment on above: Performed By: #### C MP, FE and TIBC, CONSTANTINO, CBC, [id number] ####[address] [address] [place] Comprehensive Metabolic Pane tommie 09-27-2023 Albumin [Mass/Vol] 4.3 g/dL Normal 3.5-5.7 [facility] Comment on above: Performed By: #### C MP, FE and TIBC, CONSTANTINO, CBC, [id number] ####[address] Creatinine Clr Calc Pharmacy 105.57 Normal [facility] Comment on above: Performed By: #### C MP, FE and TIBC, CONSTANTINO, CBC, [id number] ####[address] GFR/1.73 sq M.predicted MDRD (S/P/Bld) [Vol rate/Area] mL/min/{1.73_m2} Normal [facility] Comment on above: Performed By: #### C MP, FE and TIBC, CONSTANTINO, CBC, [id number] ####[address] Creatinine [Mass/volume] in Serum or PlasmaOrdered By: Kelly Hough on 09-27-2023 Creatinine [Mass/Vol] 0.72 mg/dL Normal 0.60-1.20 [facility] Comment on above: Performed By: #### C MP, FE and TIBC, CONSTANTINO, CBC, [id number] ####[address] Erythrocyte distribution wid th [Ratio] by Automated countOrdered By: Kelly Hough on 09-27-2023 Erythrocyte distribution width (RBC) [Ratio] 13.7 % Normal 11.9-15.3 [facility] Comment on above: Performed By: #### C MP, FE and TIBC, CONSTANTINO, CBC, [id number] ####[address] Erythrocytes [#/volume] in B lood by Automated countOrdered By: Kelly Hough on 09-27-2023 RBC (Bld) [#/Vol] 4.68 10*6/uL Normal 3.60-5.00 [facility] Comment on above: Performed By: #### C MP, FE and TIBC, CONSTANTINO, CBC, [id number] ####[facility] [id number] [place] [address] [facility] Ferritin [Mass/volume] in Se rum or PlasmaOrdered By: Kelly Hough on 09-27-2023 Ferritin [Mass/Vol] 171.3 ng/mL Normal 11.0-306.8 [facility] Comment on above: Performed By: #### C MP, FE and TIBC, CONSTANTINO, CBC, [id number] ####[facility] [id number] [place] [address] [facility] Folate [Mass/volume] in Seru m or PlasmaOrdered By: Kelly Hough on 09-27-2023 Folate [Mass/Vol] 5.5 ng/mL >5.9 [facility] Comment on above: Folate reference ran ge: >5.9 ng/mlThe WHO technical consultation on folate and vitamin [id number] has determined that folate concentrations lessthan 4 ng/ml are considered deficient. Glucose [Mass/volume] in Ser um or PlasmaOrdered By: Kelly Hough on 09-27-2023 Glucose [Mass/Vol] 113 mg/dL High 70-100 [facility] Comment on above: ADA recommended refe rence rangeRandom Glucose Reference Range is dependent on time and content of last meal. Glucose of more than 200 mg/dL in a nonstressed, ambulatory subject supports the diagnosis of Diabetes Mellitus. Result Comment: [place] Glucose Reference Range is dependent on time and content of last meal. Glucose of more than 200 mg/dL in a nonstressed, ambulatory subject supports the diagnosis of Diabetes Mellitus. ADA recommended reference range Performed By: #### C MP, FE and TIBC, CONSTANTINO, CBC, [id number] ####[facility] [id number] [place] [id number] [facility] HIV 1/O/2 Antigen/Antibodyon 09-27-2023 HIV Screen 4th Generation Non-Reactive Normal Non Reactive [facility] Comment on above: Order Comment: Reaso n for Exam Screening for STD (sexually transmitted disease) Result Comment: HIV Negative HIV-1/HIV-2 antibodies and HIV-1 p24 antigen were NOT detected. There is no laboratory evidence of HIV infection. Performed at: [facility] [id number] [employer] Cr[employer] Tester: Alan Macias PhD, Phone: [phone] Performed By: #### H IV SCREEN, RPR W RFX ####[facility] , HIV 1 and HIV-2 antibody ass ay with HIV-1 p24 antigen detectionOrdered By: Yudelka Lopez on 09-27-2023 HIV 1+2 Ab+HIV1 p24 Ag IA Ql Non-Reactive Non Reactive [facility] Comment on above: HIV NegativeHIV-1/HI V-2 antibodies and HIV-1 p24 antigen were NOTdetected. There is no laboratory evidence of HIV infection.Performed at: [facility] [id number] Director: Alan Macias PhD, Phone: [phone] Hematocrit [Volume Fraction] of Blood by Automated countOrdered By: Kelly Hough on 09-27-2023 Hematocrit (Bld) [Volume fraction] 34.8 % Normal 34.0-46.4 [facility] Comment on above: Performed By: #### C MP, FE and TIBC, CONSTANTINO, CBC, [id number] ####[place] [id number] [address] Hemoglobin [Mass/volume] in BloodOrdered By: Kelly Hough on 09-27-2023 Hemoglobin (Bld) [Mass/Vol] 11.0 g/dL Low 11.8-15.4 [facility] Comment on above: Performed By: #### C MP, FE and TIBC, CONSTANTINO, CBC, [id number] ####[place] [id number] [facility] Iron [Mass/volume] in Serum or PlasmaOrdered By: Kelly Hough on 09-27-2023 Iron [Mass/Vol] 59 ug/dL Normal 50-212 [facility] Comment on above: Performed By: #### C MP, FE and TIBC, CONSTANTINO, CBC, [id number] ####[facility] Iron and TIBC Profileon 09-17 % Iron Saturation 25.5 % Normal 20-50 [facility] Comment on above: Performed By: #### C MP, FE and TIBC, CONSTANTINO, CBC, [id number] ####[place] [id number] [address] Total Iron Binding Capacity 231 ug/dL Low 255-450 [facility] Comment on above: Performed By: #### C MP, FE and TIBC, CONSTANTINO, CBC, [id number] ####[place] [id number] [address] Iron binding capacity [Mass/ volume] in Serum or PlasmaOrdered By: Kelly Hough on 09-27-2023 Iron binding capacity [Mass/Vol] 231 ug/dL 255-450 [facility] Iron saturation [Mass Fracti on] in Serum or PlasmaOrdered By: Kelly Hough on 09-27-2023 Iron saturation [Mass fraction] 25.5 % 20-50 [facility] Leukocytes [#/volume] correc delmer for nucleated erythrocytes in Blood by Automated counOrdered By: Kelly Hough on 09-27-2023 WBC corrected for nucl RBC Auto (Bld) [#/Vol] 8.3 10*3/uL 3.8-11.6 [facility] Leukocytes [#/volume] in Blo od by Automated countOrdered By: Kelly Hough on 09-27-2023 WBC (Bld) [#/Vol] 8.3 10*3/uL Normal 3.8-11.6 [facility] Comment on above: Performed By: #### C MP, FE and TIBC, CONSTANTINO, CBC, [id number] ####[place] [address] [address] Lymphocytes [#/volume] in Bl ood by Automated countOrdered By: Kelly Hough on 09-27-2023 Lymphocytes (Bld) [#/Vol] 2.1 10*3/uL Normal 1.00-4.8 [facility] Comment on above: Performed By: #### C MP, FE and TIBC, CONSTANTINO, CBC, [id number] ####[address] Lymphocytes/100 leukocytes i n Blood by Automated countOrdered By: Kelly France on 09-27-2023 Lymphocytes/100 WBC (Bld) 24.7 % Normal . [facility] Comment on above: Performed By: #### C MP, FE and TIBC, CONSTANTINO, CBC, [id number] ####[address] MCH [Entitic mass] by Automa delmer countOrdered By: Kelly France on 09-27-2023 MCH (RBC) [Entitic mass] 23.5 pg Low 24.7-34.3 [facility] Comment on above: Performed By: #### C MP, FE and TIBC, CONSTANTINO, CBC, [id number] ####[address] MCHC Auto (RBC) [Mass/Vol]Or dered By: Kelly France on 09-27-2023 MCHC (RBC) [Mass/Vol] 31.6 g/dL 32.0-35.0 [facility] MCV [Entitic volume] by Auto mated countOrdered By: Kelly France on 09-27-2023 MCV (RBC) [Entitic vol] 74.4 fL Low 80-100 [facility] Comment on above: Performed By: #### C MP, FE and TIBC, CONSTANTINO, CBC, [id number] ####[address] Neutrophils [#/volume] in Bl ood by Automated countOrdered By: Kelly France on 09-27-2023 Neutrophils (Bld) [#/Vol] 5.8 10*3/uL Normal 1.8-7.7 [facility] Comment on above: Performed By: #### C MP, FE and TIBC, CONSTANTINO, CBC, [id number] ####[address] [place] [address] [place] No Panel InformationOrdered By: Kelly Ryanmagnoliacristel on 09-27-2023 Estimated GFR (CKD-EPI) > 60.0 mL/Min [facility] Creatinine Clearance (Chem 105.57 [facility] Nucleated erythrocytes [Pres ence] in Blood by Automated countOrdered By: Kelly Ryannemesio on 09-27-2023 Nucleated RBC Auto Ql (Bld) 0.1 /100{WBC} 0-0.5 [facility] Platelet mean volume [Entiti c volume] in Blood by Automated countOrdered By: Kelly Ryannemesio on 09-27-2023 Platelet mean volume (Bld) [Entitic vol] 9.3 fL Normal 6.3-10.7 [facility] Comment on above: Performed By: #### C MP, FE and TIBC, CONSTANTINO, CBC, [id number] ####[address] Platelets [#/volume] in Bloo d by Automated countOrdered By: Kelly Ryannemesio on 09-27-2023 Platelets (Bld) [#/Vol] 197 10*3/uL Normal 150-450 [facility] Comment on above: Performed By: #### C MP, FE and TIBC, CONSTANTINO, CBC, [id number] ####[place] [id number] [facility] Potassium [Moles/volume] in Serum or PlasmaOrdered By: Kelly France on 09-27-2023 Potassium [Moles/Vol] 3.4 mmol/L Low 3.5-5.1 [facility] Comment on above: Performed By: #### C MP, FE and TIBC, CONSTANTINO, CBC, [id number] ####[address] Protein [Mass/volume] in Ser um or PlasmaOrdered By: Kelly Ryannemesio on 09-27-2023 Protein [Mass/Vol] 6.8 g/dL Normal 6.4-8.9 [facility] Comment on above: Performed By: #### C MP, FE and TIBC, CONSTANTINO, CBC, [id number] ####[facility] [id number] RPR w/rfx to Quant TP Abson 09-27-2023 RPR, Rfx Quant RPR Non-Reactive Normal Non Reactive [facility] Comment on above: Order Comment: Reaso n for Exam Screening for STD (sexually transmitted disease) Result Comment: Perf ormed at: CB - [facility] [address] [id number] [employer] Tester: Alan Macias PhD, Phone: [phone] PERFORMED BY: [facility] [address] [place] [address] PATHOLOGIST AGRICULTURAL LOAN OFFICER CLAU ZAVALA M.D. Performed By: #### H IV SCREEN, RPR W RFX ####[facility] , Reagin Ab [Presence] in Seru m by RPROrdered By: Yudelka Lopez on 09-27-2023 Reagin Ab RPR Ql (S) Non-Reactive Non Reactive [facility] Comment on above: Performed at: CB - [facility] [address] [id number] Director: Alan Macias PhD, Phone: [phone] Serum globulin measurement b y calculation (mass/volume)Ordered By: Kelly Hough on 09-27-2023 Globulin (S) [Mass/Vol] 2.5 g/dL [facility] Comment on above: Performed By: #### C MP, FE and TIBC, CONSTANTINO, CBC, [id number] ####[place] [address] [address] Serum or plasma albumin/glob ulin mass ratioOrdered By: Kelly Hough on 09-27-2023 Albumin/Globulin [Mass ratio] 1.7 {ratio} [facility] Comment on above: Performed By: #### C MP, FE and TIBC, CONSTANTINO, CBC, [id number] ####[address] Serum or plasma anion gap de terminationOrdered By: Kelly Hough on 09-27-2023 Anion gap [Moles/Vol] 7.1 mmol/L Normal 6.0-15.0 [facility] Comment on above: Performed By: #### C MP, FE and TIBC, CONSTANTINO, CBC, [id number] ####[place] [address] [place] [address] [facility] Sodium [Moles/volume] in Ser um or PlasmaOrdered By: Kelly Hough on 09-27-2023 Sodium [Moles/Vol] 140 mmol/L Normal 136-145 [facility] Comment on above: Performed By: #### C MP, FE and TIBC, CONSTANTINO, CBC, [id number] ####[place] [address] [place] [address] [facility] Transferrin [Mass/volume] in Serum or PlasmaOrdered By: Kelly Hough on 09-27-2023 Transferrin [Mass/Vol] 165 mg/dL Low 203-362 [facility] Comment on above: Performed By: #### C MP, FE and TIBC, CONSTANTINO, CBC, [id number] ####[address] [facility] Urea nitrogen [Mass/volume] in Serum or PlasmaOrdered By: Kelly Hough on 09-27-2023 Urea nitrogen [Mass/Vol] 10 mg/dL Normal 7-25 [facility] Comment on above: Performed By: #### C MP, FE and TIBC, CONSTANTINO, CBC, [id number] ####[address] [facility] Vit. B12/Folate Profileon Folate 5.5 ng/mL Low >5.9 [facility] Comment on above: Result Comment: Breana te reference range: >5.9 ng/ml The WHO technical consultation on folate and vitamin b12 deficiencies has determined that folate concentrations less than 4 ng/ml are considered deficient. PERFORMED BY: [facility] [address] [place] [id number] PATHOLOGIST AGRICULTURAL LOAN OFFICER CLAU ZAVALA M.D. Performed By: #### C MP, FE and TIBC, CONSTANTINO, CBC, [id number] ####[facility] [id number] Vitamin B12 ser/plasOrdered By: Kelly France on 09-27-2023 Cobalamin (Vitamin B12) [Mass/Vol] 446 pg/mL Normal 180-914 [facility] Comment on above: Performed By: #### C MP, FE and TIBC, CONSTANTINO, CBC, [id number] ####[facility] [id number] Absolute reticulocyte countO rdered By: Kelly Hough on 06-27-2023 Reticulocytes (Bld) [#/Vol] 0.066 10*6/uL 0.024-0.08 4 [facility] Haptoglobin [Mass/volume] in Serum or PlasmaOrdered By: Kelly Hough on 06-27-2023 Haptoglobin [Mass/Vol] 184 mg/dL 44-215 [facility] Lactate dehydrogenase [Enzym atic activity/volume] in Serum or Plasma by Lactate to pyOrdered By: Kelly Hough on 06-27-2023 LDH Lactate to pyruvate reaction [Catalytic activity/Vol] 137 U/L 140-271 [facility] Monocyte %Ordered By: Kelly amaya on 06-27-2023 Monocyte % 145 ug/dL 80-158 [facility] Comment on above: This test was develo ped and its performance characteristicsdetermined by [facility]. It has not been cleared orapproved by the Food and Drug Administration. Detection Limit = 5Performed at: [facility] [id number] Director: Artemio Guillen MD, Phone: [phone] Reticulocytes/100 RBC Auto ( Bld)Ordered By: Kelly Hough on 06-27-2023 Reticulocytes/100 RBC (Bld) 1.4 % 0.5-1.5 [facility] Alanine aminotransferase [En zymatic activity/volume] in Serum or PlasmaOrdered By: Kelly Hough on 06-14-2023 ALT [Catalytic activity/Vol] 13 U/L 7-52 [facility] Albumin [Mass/volume] in Ser um or Plasma by Bromocresol green (BCG) dye binding methoOrdered By: Kelly Hough on 06-14-2023 Albumin BCG dye [Mass/Vol] 3.8 g/dL 3.5-5.7 [facility] Alkaline phosphatase [Enzyma tic activity/volume] in Serum or PlasmaOrdered By: Kelly Hough on 06-14-2023 ALP [Catalytic activity/Vol] 33 U/L 34-104 [facility] Aspartate aminotransferase [ Enzymatic activity/volume] in Serum or PlasmaOrdered By: Kelly Hough on 06-14-2023 AST [Catalytic activity/Vol] 10 U/L 13-39 [facility] Basophils Auto (Bld) [#/Vol] Ordered By: Kelly Hough on 06-14-2023 Basophils (Bld) [#/Vol] 0.0 10*3/uL 0.0-0.2 [facility] Basophils/100 WBC Auto (Bld) Ordered By: Kelly Hough on 06-14-2023 Basophils/100 WBC (Bld) 0.4 % . [facility] Bilirubin.total [Mass/volume ] in Serum or PlasmaOrdered By: Kelly Hough on 06-14-2023 Bilirubin [Mass/Vol] 0.4 mg/dL 0.3-1.0 [facility] Calcium [Mass/volume] in Ser um or PlasmaOrdered By: Kelly Huogh on 06-14-2023 Calcium [Mass/Vol] 8.8 mg/dL 8.6-10.3 [facility] Carbon dioxide, total [Moles /volume] in Serum or PlasmaOrdered By: Kelly Hough on 06-14-2023 CO2 [Moles/Vol] 28.5 mmol/L 21.0-31.0 [facility] Chloride [Moles/volume] in S salas or PlasmaOrdered By: Kelly Hough on 06-14-2023 Chloride [Moles/Vol] 104 mmol/L 98-107 [facility] Creatinine [Mass/volume] in Serum or PlasmaOrdered By: Kelly Hough on 06-14-2023 Creatinine [Mass/Vol] 0.82 mg/dL 0.60-1.20 [facility] Eosinophils Auto (Bld) [#/Vo l]Ordered By: Kelly Hough on 06-14-2023 Eosinophils (Bld) [#/Vol] 0.2 10*3/uL 0.0-0.45 [facility] Eosinophils/100 WBC Auto (Bl d)Ordered By: Kelly Hough on 06-14-2023 Eosinophils/100 WBC (Bld) 1.9 % . [facility] Erythrocyte distribution wid th Auto (RBC) [Ratio]Ordered By: Kelly Hough on 06-14-2023 Erythrocyte distribution width (RBC) [Ratio] 13.9 % 11.9-15.3 [facility] Ferritin [Mass/volume] in Se rum or PlasmaOrdered By: Kelly Hough on 06-14-2023 Ferritin [Mass/Vol] 146.0 ng/mL 11.0-306.8 [facility] Globulin Calc (S) [Mass/Vol] Ordered By: Kelly Hough on 06-14-2023 Globulin (S) [Mass/Vol] 2.0 g/dL [facility] Glucose [Mass/volume] in Ser um or PlasmaOrdered By: Kelly Hough on 06-14-2023 Glucose [Mass/Vol] 86 mg/dL 70-100 [facility] Comment on above: ADA recommended refe rence rangeRandom Glucose Reference Range is dependent on time and content of last meal. Glucose of more than 200 mg/dL in a nonstressed, ambulatory subject supports the diagnosis of Diabetes Mellitus. Hematocrit Auto (Bld) [Volum e fraction]Ordered By: Kelly Hough on 06-14-2023 Hematocrit (Bld) [Volume fraction] 32.4 % 34.0-46.4 [facility] Hemoglobin [Mass/volume] in BloodOrdered By: Klely Hough on 06-14-2023 Hemoglobin (Bld) [Mass/Vol] 10.3 g/dL 11.8-15.4 [facility] Iron [Mass/volume] in Serum or PlasmaOrdered By: Kelly Hough on 06-14-2023 Iron [Mass/Vol] 62 ug/dL 50-212 [facility] Iron binding capacity [Mass/ volume] in Serum or PlasmaOrdered By: Kelly Hough on 06-14-2023 Iron binding capacity [Mass/Vol] 190 ug/dL 255-450 [facility] Iron saturation [Mass Fracti on] in Serum or PlasmaOrdered By: Kelly Hough on 06-14-2023 Iron saturation [Mass fraction] 32.6 % 20-50 [facility] Leukocytes [#/volume] correc delmer for nucleated erythrocytes in Blood by Automated counOrdered By: Kelly Hough on 06-14-2023 WBC corrected for nucl RBC Auto (Bld) [#/Vol] 8.4 10*3/uL 3.8-11.6 [facility] Lymphocytes Auto (Bld) [#/Vo l]Ordered By: Kelly Hough on 06-14-2023 Lymphocytes (Bld) [#/Vol] 2.6 10*3/uL 1.00-4.8 [facility] Lymphocytes/100 WBC Auto (Bl d)Ordered By: Kelly Hough on 06-14-2023 Lymphocytes/100 WBC (Bld) 31.3 % . [facility] MCH Auto (RBC) [Entitic mass ]Ordered By: Kelly Hough on 06-14-2023 MCH (RBC) [Entitic mass] 23.8 pg 24.7-34.3 [facility] MCHC Auto (RBC) [Mass/Vol]Or dered By: Kelly Hough on 06-14-2023 MCHC (RBC) [Mass/Vol] 31.7 g/dL 32.0-35.0 [facility] MCV Auto (RBC) [Entitic vol] Ordered By: Kelly Hough on 06-14-2023 MCV (RBC) [Entitic vol] 75.2 fL 80-100 [facility] Monocytes Auto (Bld) [#/Vol] Ordered By: Kelly Hough on 06-14-2023 Monocytes (Bld) [#/Vol] 0.5 10*3/uL 0.0-0.8 [facility] Monocytes/100 WBC Auto (Bld) Ordered By: Kelly Hough on 06-14-2023 Monocytes/100 WBC (Bld) 5.9 % . [facility] Neutrophils Auto (Bld) [#/Vo l]Ordered By: Kelly Hough on 06-14-2023 Neutrophils (Bld) [#/Vol] 5.1 10*3/uL 1.8-7.7 [facility] Neutrophils/100 WBC Auto (Bl d)Ordered By: Kelly Hough on 06-14-2023 Neutrophils/100 WBC (Bld) 60.5 % . [facility] No Panel InformationOrdered By: Kelly Hough on 06-14-2023 Estimated GFR (CKD-EPI) > 60.0 mL/Min [facility] Creatinine Clearance (Chem 93.10 [facility] Nucleated erythrocytes [Pres ence] in Blood by Automated countOrdered By: Kelly Hough on 06-14-2023 Nucleated RBC Auto Ql (Bld) 0.1 /100{WBC} 0-0.5 [facility] Platelet mean volume Auto (B ld) [Entitic vol]Ordered By: Kelly Hough on 06-14-2023 Platelet mean volume (Bld) [Entitic vol] 9.6 fL 6.3-10.7 [facility] Platelets Auto (Bld) [#/Vol] Ordered By: Kelly Hough on 06-14-2023 Platelets (Bld) [#/Vol] 189 10*3/uL 150-450 [facility] Potassium [Moles/volume] in Serum or PlasmaOrdered By: Kelly Hough on 06-14-2023 Potassium [Moles/Vol] 4.1 mmol/L 3.5-5.1 [facility] Protein [Mass/volume] in Ser um or PlasmaOrdered By: Kelly Hough on 06-14-2023 Protein [Mass/Vol] 5.8 g/dL 6.4-8.9 [facility] RBC Auto (Bld) [#/Vol]Ordere d By: Kelly Hough on 06-14-2023 RBC (Bld) [#/Vol] 4.31 10*6/uL 3.60-5.00 [facility] Serum or plasma albumin/glob ulin mass ratioOrdered By: Kelly Hough on 06-14-2023 Albumin/Globulin [Mass ratio] 1.9 {ratio} [facility] Serum or plasma anion gap de terminationOrdered By: Kelly Hough on 06-14-2023 Anion gap [Moles/Vol] 10.6 mmol/L 6.0-15.0 [facility] Sodium [Moles/volume] in Ser um or PlasmaOrdered By: Kelly Hough on 06-14-2023 Sodium [Moles/Vol] 139 mmol/L 136-145 [facility] Thyrotropin [Units/volume] i n Serum or PlasmaOrdered By: Dayne Horton on 06-14-2023 TSH Qn 1.43 m[IU]/L 0.45-5.33 [facility] Thyroxine (T4) free [Mass/vo lume] in Serum or PlasmaOrdered By: Dayne Horton on 06-14-2023 Free T4 [Mass/Vol] 1.22 ng/dL 0.61-1.12 [facility] Transferrin [Mass/volume] in Serum or PlasmaOrdered By: Kelly Hough on 06-14-2023 Transferrin [Mass/Vol] 136 mg/dL 203-362 [facility] Triiodothyronine (T3) Free [ Mass/volume] in Serum or PlasmaOrdered By: Dayne Horton on 06-14-2023 Free T3 [Mass/Vol] 3.99 pg/mL 2.50-3.90 [facility] Urea nitrogen [Mass/volume] in Serum or PlasmaOrdered By: Kelly Hough on 06-14-2023 Urea nitrogen [Mass/Vol] 11 mg/dL 7-25 [facility] WBC Auto (Bld) [#/Vol]Ordere d By: Kelly Hough on 06-14-2023 WBC (Bld) [#/Vol] 8.4 10*3/uL 3.8-11.6 [facility] Provider Letteron 04-09-2023 Provider Letter (Inserted Image. Radha ble to display) April 09, 2023 LEANDRA FONSECA [address] [place] [address] : 1990 Dear Leandra , We have been trying to reach you with no success. It is important that you return our call regarding your referral from Kelvin Draper upon receiving this letter. Also, at the time of your call, please provide us with your current information. Thank you for your prompt attention to this matter. Sincerely, General Surgery [facility] [phone] Normal [facility] Lab Reportson 04-04-2023 Lab Reports [id number]:127 Normal [facility] Physician Referralon 023 Physician Referral [id number]:127 Normal [facility] Albumin [Mass/volume] in Ser um or PlasmaOrdered By: Kelly Hough on 03-21-2023 Albumin [Mass/Vol] 3.6 g/dL 2.9-4.4 [facility] IgA [Mass/volume] in Serum o r PlasmaOrdered By: Kelly Hough on 03-21-2023 IgA [Mass/Vol] 158 mg/dL 87-352 [facility] IgG [Mass/volume] in Serum o r PlasmaOrdered By: Kelly Hough on 03-21-2023 IgG [Mass/Vol] 1046 mg/dL 586-1602 [facility] IgM [Mass/volume] in Serum o r PlasmaOrdered By: Kelly Hough on 03-21-2023 IgM [Mass/Vol] 302 mg/dL 26-217 [facility] Comment on above: Performed at: [place] [id number] Director: Alan Macias PhD, Phone: [phone] Immunoglobulin light chains. kappa.free [Mass/volume] in SerumOrdered By: Kelly Hough on 03-21-2023 Immunoglobulin light chains.kappa.free (S) [Mass/Vol] 19.2 mg/L 3.3-19.4 [facility] Immunoglobulin light chains. kappa.free/Immunoglobulin light chains.lambda.free [MassOrdered By: Kelly Hough on 03-21-2023 Immunoglobulin light chains.kappa.free/Immu noglobulin light chains.lambda.free (S) [Mass ratio] 1.31 0.26-1.65 [facility] Comment on above: Performed at: - [facility] [address] [id number] Director: Alan Macias PhD, Phone: [phone] Immunoglobulin light chains. lambda.free [Mass/volume] in Serum or PlasmaOrdered By: Kelly Hough on 03-21-2023 Immunoglobulin light chains.lambda.free [Mass/Vol] 14.7 mg/L 5.7-26.3 [facility] No Panel InformationOrdered By: Kelly Hough on 03-21-2023 Protein Electrophoresis M-Emanuel Not observed g/dL Not Observed [facility] Protein Electrophoresis Note See comment . [facility] Comment on above: Protein electrophore sis scan will follow via computer,mail, or work station support specialist delivery. Serum Immunofixation See comment . [facility] Comment on above: No monoclonality det ected. Slides for Pathologist Review Ordered path review [facility] Protein [Mass/volume] in Ser um or PlasmaOrdered By: Kelly Hough on 03-21-2023 Protein [Mass/Vol] 6.5 g/dL 6.0-8.5 [facility] Serum globulin measurement ( mass/volume)Ordered By: Kelly Hough on 03-21-2023 Globulin (S) [Mass/Vol] 2.9 g/dL 2.2-3.9 [facility] Serum or plasma albumin/glob ulin mass ratioOrdered By: Kelly Hough on 03-21-2023 Albumin/Globulin [Mass ratio] 1.2 {ratio} 0.7-1.7 [facility] Serum or plasma alpha 1 glob ulin measurement by electrophoresis (mass/volume)Ordered By: Kelly Hough on 03-21-2023 Alpha 1 globulin Elph [Mass/Vol] 0.3 g/dL 0.0-0.4 [facility] Serum or plasma alpha 2 glob ulin measurement by electrophoresis (mass/volume)Ordered By: Kelly Hough on 03-21-2023 Alpha 2 globulin Elph [Mass/Vol] 0.8 g/dL 0.4-1.0 [facility] Serum or plasma beta globuli n measurement by electrophoresis (mass/volume)Ordered By: Kelly France on 03-21-2023 Beta globulin Elph [Mass/Vol] 0.7 g/dL 0.7-1.3 [facility] Serum or plasma gamma globul in measurement by electrophoresis (mass/volume)Ordered By: Kelly Hough on 03-21-2023 Gamma globulin Elph [Mass/Vol] 1.1 g/dL 0.4-1.8 [facility] Alanine aminotransferase [En zymatic activity/volume] in Serum or PlasmaOrdered By: Jim Vega on 02-06-2023 ALT [Catalytic activity/Vol] 10 U/L 7-52 [facility] Albumin [Mass/volume] in Ser um or Plasma by Bromocresol green (BCG) dye binding methoOrdered By: Jim Vega on 02-06-2023 Albumin BCG dye [Mass/Vol] 4.2 g/dL 3.5-5.7 [facility] Alkaline phosphatase [Enzyma tic activity/volume] in Serum or PlasmaOrdered By: Jim Vega on 02-06-2023 ALP [Catalytic activity/Vol] 45 U/L 34-104 [facility] Aspartate aminotransferase [ Enzymatic activity/volume] in Serum or PlasmaOrdered By: Jim Vega on 02-06-2023 AST [Catalytic activity/Vol] 12 U/L 13-39 [facility] Automated erythrocytes count in urine sediment (number/area)Ordered By: Jim Vega on 02-06-2023 RBC Auto (Urine sed) [#/Area] 5-9 [HPF] 0-4 [facility] Automated leukocytes count i n urine sediment (number/area)Ordered By: Jim Vega on 02-06-2023 WBC Auto (Urine sed) [#/Area] 3-4 [HPF] 0-4 [facility] Basophils Auto (Bld) [#/Vol] Ordered By: Jim Vega on 02-06-2023 Basophils (Bld) [#/Vol] 0.0 10*3/uL 0.0-0.2 [facility] Basophils/100 WBC Auto (Bld) Ordered By: Jim Vega on 02-06-2023 Basophils/100 WBC (Bld) 0.7 % . [facility] Bilirubin Test strip Ql (U)O rdered By: Jim Vega on 02-06-2023 Bilirubin Ql (U) Negative Negative [facility] Bilirubin.total [Mass/volume ] in Serum or PlasmaOrdered By: Jim Vega on 02-06-2023 Bilirubin [Mass/Vol] 0.5 mg/dL 0.3-1.0 [facility] Calcium [Mass/volume] in Ser um or PlasmaOrdered By: Jim Vega on 02-06-2023 Calcium [Mass/Vol] 8.5 mg/dL 8.6-10.3 [facility] Carbon dioxide, total [Moles /volume] in Serum or PlasmaOrdered By: Jim Vega on 02-06-2023 CO2 [Moles/Vol] 26.0 mmol/L 21.0-31.0 [facility] System Chloride [Moles/volume] in S salas or PlasmaOrdered By: Jim Vega on 02-06-2023 Chloride [Moles/Vol] 105 mmol/L 98-107 [facility] Color Auto (U)Ordered By: Narinder red Silvia on 02-06-2023 Color (U) Yellow Yellow [facility] Creatinine [Mass/volume] in Serum or PlasmaOrdered By: Jim Vega on 02-06-2023 Creatinine [Mass/Vol] 0.78 mg/dL 0.60-1.20 [facility] Eosinophils Auto (Bld) [#/Vo l]Ordered By: Jim Vega on 02-06-2023 Eosinophils (Bld) [#/Vol] 0.1 10*3/uL 0.0-0.45 [facility] Eosinophils/100 WBC Auto (Bl d)Ordered By: Jim Vega on 02-06-2023 Eosinophils/100 WBC (Bld) 2.2 % . [facility] Erythrocyte distribution wid th Auto (RBC) [Ratio]Ordered By: Jim Vega on 02-06-2023 Erythrocyte distribution width (RBC) [Ratio] 14.3 % 11.9-15.3 [facility] Globulin Calc (S) [Mass/Vol] Ordered By: Jim Vega on 02-06-2023 Globulin (S) [Mass/Vol] 3.0 g/dL [facility] Glucose [Mass/volume] in Ser um or PlasmaOrdered By: Jim Vega on 02-06-2023 Glucose [Mass/Vol] 92 mg/dL 70-100 [facility] Comment on above: ADA recommended refe rence rangeRandom Glucose Reference Range is dependent on time and content of last meal. Glucose of more than 200 mg/dL in a nonstressed, ambulatory subject supports the diagnosis of Diabetes Mellitus. HCG ( test) IA.rapi d Ql (U)Ordered By: Jim Vega on 02-06-2023 HCG ( test) Ql (U) Negative [facility] Hematocrit Auto (Bld) [Volum e fraction]Ordered By: Jim Vega on 02-06-2023 Hematocrit (Bld) [Volume fraction] 35.2 % 34.0-46.4 [facility] Hemoglobin [Mass/volume] in BloodOrdered By: Jim Vega on 02-06-2023 Hemoglobin (Bld) [Mass/Vol] 11.0 g/dL 11.8-15.4 [facility] Ketones Auto test strip (U) [Mass/Vol]Ordered By: Jim Vega on 02-06-2023 Ketones (U) [Mass/Vol] Negative Negative [facility] - UrinalysisOrder ed By: Jim Vega on 02-06-2023 Hyaline casts LM Ql (Urine sed) 0-8 [LPF] 0-8 [facility] Leukocytes [#/volume] correc delmer for nucleated erythrocytes in Blood by Automated counOrdered By: Jim Vega on 02-06-2023 WBC corrected for nucl RBC Auto (Bld) [#/Vol] 5.3 10*3/uL 3.8-11.6 [facility] Lymphocytes Auto (Bld) [#/Vo l]Ordered By: Jim Vega on 02-06-2023 Lymphocytes (Bld) [#/Vol] 1.4 10*3/uL 1.00-4.8 [facility] Lymphocytes/100 WBC Auto (Bl d)Ordered By: Jim Vega on 02-06-2023 Lymphocytes/100 WBC (Bld) 25.8 % . [facility] MCH Auto (RBC) [Entitic mass ]Ordered By: Jim Vega on 02-06-2023 MCH (RBC) [Entitic mass] 22.8 pg 24.7-34.3 [facility] MCHC Auto (RBC) [Mass/Vol]Or dered By: Jim Vega on 02-06-2023 MCHC (RBC) [Mass/Vol] 31.1 g/dL 32.0-35.0 [facility] MCV Auto (RBC) [Entitic vol] Ordered By: Jim Vega on 02-06-2023 MCV (RBC) [Entitic vol] 73.2 fL 80-100 [facility] Monocyte distribution width [Entitic volume] in Blood by AutomatedOrdered By: Jim Vega on 02-06-2023 Monocyte distribution width Auto (Bld) [Entitic vol] 18.18 % 0.00-20.00 [facility] Monocytes Auto (Bld) [#/Vol] Ordered By: Jim Vega on 02-06-2023 Monocytes (Bld) [#/Vol] 0.4 10*3/uL 0.0-0.8 [facility] Monocytes/100 WBC Auto (Bld) Ordered By: Jim Vega on 02-06-2023 Monocytes/100 WBC (Bld) 7.1 % . [facility] Neutrophils Auto (Bld) [#/Vo l]Ordered By: Jim Vega on 02-06-2023 Neutrophils (Bld) [#/Vol] 3.4 10*3/uL 1.8-7.7 [facility] Neutrophils/100 WBC Auto (Bl d)Ordered By: Jim Vega on 02-06-2023 Neutrophils/100 WBC (Bld) 64.2 % . [facility] Nitrite Test strip Ql (U)Ord ered By: Jim Vega on 02-06-2023 Nitrite Ql (U) Negative Negative [facility] No Panel InformationOrdered By: Jim Vega on 02-06-2023 Estimated GFR (CKD-EPI) > 60.0 mL/Min [facility] Creatinine Clearance (Chem 100.96 [facility] Nucleated erythrocytes [Pres ence] in Blood by Automated countOrdered By: Jim Vega on 02-06-2023 Nucleated RBC Auto Ql (Bld) 0.1 /100{WBC} 0-0.5 [facility] Platelet mean volume Auto (B ld) [Entitic vol]Ordered By: Jim Vega on 02-06-2023 Platelet mean volume (Bld) [Entitic vol] 9.4 fL 6.3-10.7 [facility] Platelets Auto (Bld) [#/Vol] Ordered By: Jim Vega on 02-06-2023 Platelets (Bld) [#/Vol] 175 10*3/uL 150-450 [facility] Potassium [Moles/volume] in Serum or PlasmaOrdered By: Jim Vega on 02-06-2023 Potassium [Moles/Vol] 3.5 mmol/L 3.5-5.1 [facility] Protein Auto test strip (U) [Mass/Vol]Ordered By: Jim Vega on 02-06-2023 Protein (U) [Mass/Vol] Negative Negative [facility] Protein [Mass/volume] in Ser um or PlasmaOrdered By: Jim Vega on 02-06-2023 Protein [Mass/Vol] 7.2 g/dL 6.4-8.9 [facility] RBC Auto (Bld) [#/Vol]Ordere d By: Jim Vega on 02-06-2023 RBC (Bld) [#/Vol] 4.81 10*6/uL 3.60-5.00 [facility] Serum or plasma albumin/glob ulin mass ratioOrdered By: Jim Vega on 02-06-2023 Albumin/Globulin [Mass ratio] 1.4 {ratio} [facility] Serum or plasma anion gap de terminationOrdered By: Jim Vega on 02-06-2023 Anion gap [Moles/Vol] 9.5 mmol/L 6.0-15.0 [facility] Sodium [Moles/volume] in Ser um or PlasmaOrdered By: Jim Vega on 02-06-2023 Sodium [Moles/Vol] 137 mmol/L 136-145 [facility] Specific gravity Auto test s trip (U) [Rel density]Ordered By: Jim Vega on 02-06-2023 Specific gravity (U) [Rel density] 1.010 1.001-1.03 0 [facility] Squamous epithelial cells de tection in urine sediment by light microscopyOrdered By: Jim Vega on 02-06-2023 Epithelial cells.squamous LM Ql (Urine sed) 5-9 [HPF] 0-2 [facility] Urea nitrogen [Mass/volume] in Serum or PlasmaOrdered By: Jim Vega on 02-06-2023 Urea nitrogen [Mass/Vol] 11 mg/dL 7-25 [facility] Urine bacteria detection by automated methodOrdered By: Jim Vega on 02-06-2023 Bacteria Auto Ql (U) None seen None Seen [facility] Urine clarity by refractomet ry automatedOrdered By: Jim Vega on 02-06-2023 Clarity Refractometry automated (U) Clear Clear [facility] Urine glucose measurement by automated test strip (mass/volume)Ordered By: Jim Vega on 02-06-2023 Glucose Auto test strip (U) [Mass/Vol] Normal mg/dL Normal [facility] Urine hemoglobin detection b y automated test stripOrdered By: Jim Vega on 02-06-2023 Hemoglobin Auto test strip Ql (U) Trace Negative [facility] Urine leukocyte esterase det ection by automated test stripOrdered By: Jim Vega on 02-06-2023 Leukocyte esterase Auto test strip Ql (U) Negative Negative [facility] Urobilinogen Auto test strip (U) [Mass/Vol]Ordered By: Jim Vega on 02-06-2023 Urobilinogen (U) [Mass/Vol] Normal mg/dL Normal [facility] WBC Auto (Bld) [#/Vol]Ordere d By: Jim Vega on 02-06-2023 WBC (Bld) [#/Vol] 5.3 10*3/uL 3.8-11.6 [facility] pH Auto test strip (U)Ordere d By: Jim Vega on 02-06-2023 pH (U) 8.0 [pH] 5.0-9.0 [facility] Ferritin [Mass/volume] in Se rum or PlasmaOrdered By: Kelly Hough on 01-24-2023 Ferritin [Mass/Vol] 64.3 ng/mL 11.0-306.8 [facility] Iron [Mass/volume] in Serum or PlasmaOrdered By: Kelly Hough on 01-24-2023 Iron [Mass/Vol] 85 ug/dL 50-212 [facility] Iron binding capacity [Mass/ volume] in Serum or PlasmaOrdered By: Kelly Hough on 01-24-2023 Iron binding capacity [Mass/Vol] 227 ug/dL 255-450 [facility] Iron saturation [Mass Fracti on] in Serum or PlasmaOrdered By: Kelly Hough on 01-24-2023 Iron saturation [Mass fraction] 37.4 % 20-50 [facility] Transferrin [Mass/volume] in Serum or PlasmaOrdered By: Kelly Hough on 01-24-2023 Transferrin [Mass/Vol] 162 mg/dL 203-362 [facility] Basophils Auto (Bld) [#/Vol] Ordered By: Kelly Hough on 12-25-2022 Basophils (Bld) [#/Vol] 0.0 10*3/uL 0.0-0.2 [facility] Basophils/100 WBC Auto (Bld) Ordered By: Kelly Hough on 12-25-2022 Basophils/100 WBC (Bld) 0.3 % . [facility] C reactive protein [Mass/vol ume] in Serum or PlasmaOrdered By: Imcatina Shanks on 12-25-2022 CRP [Mass/Vol] < 0.5 mg/dL 0.0-0.5 [facility] Calprotectin [Mass/mass] in StoolOrdered By: Imad Asaad on 12-25-2022 Calprotectin (Stl) [Mass/Mass] 32 ug/g 0-120 [facility] Comment on above: Concentration Interp retation Follow-Up<16 - 50 ug/g Normal None>50 -120 ug/g Borderline Re-evaluate in 4-6 weeks >120 ug/g Abnormal Repeat as clinically indicatedPerformed at: - [facility] [address], [place] [id number] Director: Artemio Guillen MD, Phone: [phone] Eosinophils Auto (Bld) [#/Vo l]Ordered By: Kelly Hough on 12-25-2022 Eosinophils (Bld) [#/Vol] 0.1 10*3/uL 0.0-0.45 [facility] Eosinophils/100 WBC Auto (Bl d)Ordered By: Kelly Hough on 12-25-2022 Eosinophils/100 WBC (Bld) 1.1 % . [facility] Erythrocyte distribution wid th Auto (RBC) [Ratio]Ordered By: Kelly Hough on 12-25-2022 Erythrocyte distribution width (RBC) [Ratio] 15.5 % 11.9-15.3 [facility] Erythrocyte sedimentation ra te by Photometric methodOrdered By: Jose Shanks on 12-25-2022 ESR Photometric method (Bld) [Velocity] 32 mm/hr 0-19 [facility] Ferritin [Mass/volume] in Se rum or PlasmaOrdered By: Kelly Hough on 12-25-2022 Ferritin [Mass/Vol] 58.3 ng/mL 11.0-306.8 [facility] Hematocrit Auto (Bld) [Volum e fraction]Ordered By: Kelly Hough on 12-25-2022 Hematocrit (Bld) [Volume fraction] 35.3 % 34.0-46.4 [facility] Hemoglobin [Mass/volume] in BloodOrdered By: Kelly Hough on 12-25-2022 Hemoglobin (Bld) [Mass/Vol] 11.0 g/dL 11.8-15.4 [facility] IgA [Mass/volume] in Serum o r PlasmaOrdered By: Jose Shanks on 12-25-2022 IgA [Mass/Vol] 164 mg/dL 87-352 [facility] Comment on above: Performed at: [address] [id number] Director: Alan Macias PhD, Phone: [phone] Iron [Mass/volume] in Serum or PlasmaOrdered By: Kelly Hough on 12-25-2022 Iron [Mass/Vol] 112 ug/dL 50-212 [facility] Iron binding capacity [Mass/ volume] in Serum or PlasmaOrdered By: Kelly Hough on 12-25-2022 Iron binding capacity [Mass/Vol] 241 ug/dL 255-450 [facility] Iron saturation [Mass Fracti on] in Serum or PlasmaOrdered By: Kelly Hough on 12-25-2022 Iron saturation [Mass fraction] 46.5 % 20-50 [facility] Leukocytes [#/volume] correc delmer for nucleated erythrocytes in Blood by Automated counOrdered By: Kelly Hough on 12-25-2022 WBC corrected for nucl RBC Auto (Bld) [#/Vol] 6.8 10*3/uL 3.8-11.6 [facility] Lymphocytes Auto (Bld) [#/Vo l]Ordered By: Kelly Hough on 12-25-2022 Lymphocytes (Bld) [#/Vol] 1.7 10*3/uL 1.00-4.8 [facility] Lymphocytes/100 WBC Auto (Bl d)Ordered By: Kelly Hough on 12-25-2022 Lymphocytes/100 WBC (Bld) 25.5 % . [facility] MCH Auto (RBC) [Entitic mass ]Ordered By: Kelly Hough on 12-25-2022 MCH (RBC) [Entitic mass] 22.3 pg 24.7-34.3 [facility] MCHC Auto (RBC) [Mass/Vol]Or dered By: Kelly Hough on 12-25-2022 MCHC (RBC) [Mass/Vol] 31.1 g/dL 32.0-35.0 [facility] MCV Auto (RBC) [Entitic vol] Ordered By: Kelly Hough on 12-25-2022 MCV (RBC) [Entitic vol] 71.8 fL 80-100 [facility] Monocytes Auto (Bld) [#/Vol] Ordered By: Kelly Hough on 12-25-2022 Monocytes (Bld) [#/Vol] 0.4 10*3/uL 0.0-0.8 [facility] Monocytes/100 WBC Auto (Bld) Ordered By: Kelly Hough on 12-25-2022 Monocytes/100 WBC (Bld) 6.3 % . [facility] Neutrophils Auto (Bld) [#/Vo l]Ordered By: Kelly Hough on 12-25-2022 Neutrophils (Bld) [#/Vol] 4.5 10*3/uL 1.8-7.7 [facility] Neutrophils/100 WBC Auto (Bl d)Ordered By: Kelly Hough on 12-25-2022 Neutrophils/100 WBC (Bld) 66.8 % . [facility] No Panel InformationOrdered By: Jose Shanks on 12-25-2022 Endomysial IgA Antibody Negative Negative [facility] Nucleated erythrocytes [Pres ence] in Blood by Automated countOrdered By: Kelly Hough on 12-25-2022 Nucleated RBC Auto Ql (Bld) 0.2 /100{WBC} 0-0.5 [facility] Platelet mean volume Auto (B ld) [Entitic vol]Ordered By: Kelly Hough on 12-25-2022 Platelet mean volume (Bld) [Entitic vol] 9.5 fL 6.3-10.7 [facility] Platelets Auto (Bld) [#/Vol] Ordered By: Kelly Hough on 12-25-2022 Platelets (Bld) [#/Vol] 191 10*3/uL 150-450 [facility] RBC Auto (Bld) [#/Vol]Ordere d By: Kelly Hough on 12-25-2022 RBC (Bld) [#/Vol] 4.92 10*6/uL 3.60-5.00 [facility] Serum gliadin peptide IgA an tibody assay (units/volume)Ordered By: Jose Shanks on 12-25-2022 Gliadin peptide IgA Qn (S) 7 units 0-19 [facility] Comment on above: Negative 0 - 19 Weak Positive 20 - 30 Moderate to Strong Positive >30 Serum gliadin peptide IgG an tibody assay (units/volume)Ordered By: Jose Shanks on 12-25-2022 Gliadin peptide IgG Qn (S) 3 units 0-19 [facility] Comment on above: Negative 0 - 19 Weak Positive 20 - 30 Moderate to Strong Positive >30 Serum tissue transglutaminas e (tTG) IgA antibody assay (units/volume)Ordered By: Jose Shanks on 12-25-2022 tTG IgA Qn (S) <2 U/mL 0-3 [facility] Comment on above: Negative 0 - 3 Weak Positive 4 - 10 Positive >10 Tissue Transglutaminase (tTG) has been identified as the endomysial antigen. Studies have demonstr- ated that endomysial IgA antibodies have over 99% specificity for gluten sensitive enteropathy. Serum tissue transglutaminas e (tTG) IgG antibody assay (units/volume)Ordered By: Jose Shanks on 12-25-2022 tTG IgG Qn (S) <2 U/mL 0-5 [facility] Comment on above: Negative 0 - 5 Weak Positive 6 - 9 Positive >9 Thyrotropin [Units/volume] i n Serum or PlasmaOrdered By: Jose Shanks on 12-25-2022 TSH Qn 0.78 m[IU]/L 0.45-5.33 [facility] Thyroxine (T4) free [Mass/vo lume] in Serum or PlasmaOrdered By: Dayne Horton on 12-25-2022 Free T4 [Mass/Vol] 0.93 ng/dL 0.61-1.12 [facility] Transferrin [Mass/volume] in Serum or PlasmaOrdered By: Kelly Hough on 12-25-2022 Transferrin [Mass/Vol] 172 mg/dL 203-362 [facility] Triiodothyronine (T3) Free [ Mass/volume] in Serum or PlasmaOrdered By: Dayne Horton on 12-25-2022 Free T3 [Mass/Vol] 3.54 pg/mL 2.50-3.90 [facility] Vitamin D+Metabolites [Mass/ volume] in Serum or PlasmaOrdered By: Dayne Horton on 12-25-2022 Vitamin D+Metabolites [Mass/Vol] 27.0 ng/mL 30-100 [facility] Comment on above: VITAMIN D STATUS 25( [place])VITAMIN D RANGE (ng/mL) Deficient <20 Insufficient 20 to <30Sufficient 30 to 100Reference: Pam MF,Abelardo NC, Cj GARZA, et al. Evaluation,treatment, and prevention of vitamin D deficiency; an Endocrine Society clinical practice guideline. JCEM. 2010; 96(7):1911-30. WBC Auto (Bld) [#/Vol]Ordere d By: Kelly Hough on 12-25-2022 WBC (Bld) [#/Vol] 6.8 10*3/uL 3.8-11.6 [facility] AMYLASEon 12-07-2022 Amylase [Catalytic activity/Vol] 82 U/L Normal 25-115 [facility] Comment on above: Performed By: #### U MICRO, PREGU, ERUR #### [facility] [address] [address] [address] Adam Mejía CARDIAC REBECCA 3-6on 3 CK [Catalytic activity/Vol] 50 U/L Normal 26-192 [facility] Comment on above: Performed By: #### U MICRO, PREGU, ERUR #### [facility] [address] [address] [address] Adam Mejía CK.MB [Mass/Vol] ng/mL Normal <=3.60 [facility] Comment on above: Performed By: #### U MICRO, PREGU, ERUR #### [facility] [address] [address] [address] Adam Mejía HSTROP <4.0 Normal 4.0-51.3 [facility] Comment on above: Result Comment: CUT- OFF POINTS HAVE BEEN ESTABLISHED BASED ON THE FOURTH UNIVERSAL DEFINITIONS OF MYOCARDIAL INFARCTION. THE UPPER REFERENCE LIMIT (URL) OF TROPONIN, DEFINED THE 99TH PERCENTILE OF cTnI DISTRIBUTION IN A REFERENCE POPULATION, HAS BEEN CONFIRMED THE DECISION THRESHOLD FOR [place] DIAGNOSIS. Performed By: #### U MICRO, PREGU, ERUR #### [facility] [address] [address] [address] Adam Mejía CARDIAC REBECCA ADMITon 023 CK [Catalytic activity/Vol] 60 U/L Normal 26-192 [facility] Comment on above: Performed By: #### U MICRO, PREGU, ERUR #### [facility] [address] [address] [address] Adam Mejía CK.MB [Mass/Vol] ng/mL Normal <=3.60 [facility] Comment on above: Performed By: #### U MICRO, PREGU, ERUR #### [facility] [address] [place] [address] Dr. Adam Mejía HSTROP <4.0 Normal 4.0-51.3 [facility] Comment on above: Result Comment: CUT- OFF POINTS HAVE BEEN ESTABLISHED BASED ON THE FOURTH UNIVERSAL DEFINITIONS OF MYOCARDIAL INFARCTION. THE UPPER REFERENCE LIMIT (URL) OF TROPONIN, DEFINED THE 99TH PERCENTILE OF cTnI DISTRIBUTION IN A REFERENCE POPULATION, HAS BEEN CONFIRMED THE DECISION THRESHOLD FOR [place] DIAGNOSIS. Performed By: #### U MICRO, PREGU, ERUR #### [facility] [address] [place] [address] Dr. Adam Mejía OSMIN 17 ng/mL Normal 9-82 [facility] Comment on above: Performed By: #### U MICRO, PREGU, ERUR #### [facility] [address] [place] [address] Dr. Adam Mejía CBC AUTO DIFFon 12-07-2022 BASO # 0.0 103/ul Normal 0.0-0.1 [facility] Comment on above: Performed By: #### U MICRO PREGU, ERUR #### [facility] [address] [place] [address] Dr. Adam Mejía Basophils/100 WBC (Bld) 0.3 % Normal 0.2-2.0 [facility] Comment on above: Performed By: #### U MICRO, PREGU, ERUR #### [facility] [address] [place] [address] Dr. Adam Mejía EO # 0.2 103/ul Normal 0.0-0.7 [facility] Comment on above: Performed By: #### U MICRO, PREGU, ERUR #### [facility] [address] [place] [address] Dr. Adam Mejía Eosinophils/100 WBC (Bld) 2.5 % Normal 0.9-7.0 [facility] Comment on above: Performed By: #### U MICRO, PREGU, ERUR #### [facility] [address] [place] [address] Dr. Adam Mejía Erythrocyte distribution width (RBC) [Ratio] 15.2 % Critically high 11.0-15.0 [facility] Comment on above: Performed By: #### U MICRO, PREGU, ERUR #### [facility] [address] [place] [address] Dr. Adam Mejía Hematocrit (Bld) [Volume fraction] 34.8 % Critically low 36.0-48.0 [facility] Comment on above: Performed By: #### U MICRO, PREGU, ERUR #### [facility] [address] [place] [address] Dr. Adam Mejía Hemoglobin (Bld) [Mass/Vol] 10.6 g/dL Critically low 12.0-16.0 [facility] Comment on above: Performed By: #### U MICRO, PREGU, ERUR #### [facility] [address] [place] [address] Dr. Adam Mejía IG # 0.02 10e3/ul Normal 0.00-0.03 [facility] Comment on above: Performed By: #### U MICRO, PREGU, ERUR #### [facility] [address] [place] [address] Dr. Adam Mejía IG % 0.2 % Normal 0.0-0.5 [facility] Comment on above: Performed By: #### U MICRO, PREGU, ERUR #### [facility] [address] [place] [address] Dr. Adam Mejía LYMPH # 2.1 103/ul Normal 1.2-3.8 [facility] Comment on above: Performed By: #### U MICRO, PREGU, ERUR #### [facility] [address] [place] [address] Dr. Adam Mejía Lymphocytes/100 WBC (Bld) 23.0 % Normal 20.5-60.0 [facility] Comment on above: Performed By: #### U MICRO, PREGU, ERUR #### [facility] [address] [place] [address] Dr. Adam Mejía MANUAL DIFF REQ NO Normal [facility] Comment on above: Performed By: #### U MICRO, PREGU, ERUR #### [facility] [address] [place] [address] Dr. Adam Mejía MCH (RBC) [Entitic mass] 22.5 pg Critically low 26.7-34.0 [facility] Comment on above: Performed By: #### U MICRO, PREGU, ERUR #### [facility] [address] [place] [address] Dr. Adam Mejía MCHC (RBC) [Mass/Vol] 30.5 g/dL Normal 29.9-35.2 [facility] Comment on above: Performed By: #### U MICRO, PREGU, ERUR #### [facility] [address] [place] [address] Dr. Adam Mejía MCV (RBC) [Entitic vol] 73.9 fL Critically low 81.0-99.0 [facility] Comment on above: Performed By: #### U MICRO, PREGU, ERUR #### [facility] [address] [place] [address] Dr. Adam Mejía MONO # 0.5 103/ul Normal 0.3-0.8 [facility] Comment on above: Performed By: #### U MICRO, PREGU, ERUR #### [facility] [address] [place] [address] Dr. Adam Mejía Monocytes/100 WBC (Bld) 5.8 % Normal 1.7-12.0 [facility] Comment on above: Performed By: #### U MICRO, PREGU, ERUR #### [facility] [address] [place] [address] Dr. Adam Mejía NEUT # 6.3 103/ul Normal 1.4-6.5 [facility] Comment on above: Performed By: #### U MICRO, PREGU, ERUR #### [facility] [address] [place] [address] Dr. Adam Mejía Neutrophils/100 WBC (Bld) 68.2 % Normal 43.0-75.0 [facility] Comment on above: Performed By: #### U MICRO, PREGU, ERUR #### [facility] [address] [address] [address] Adam Mejía Platelet mean volume (Bld) [Entitic vol] 11.8 fL Normal 9.5-13.5 [facility] Comment on above: Performed By: #### U MICRO, PREGU, ERUR #### [facility] [address] [address] [address] Adam Mejía PLT 250 103/ul Normal 150-450 [facility] Comment on above: Performed By: #### U MICRO, PREGU, ERUR #### [facility] [address] [place] [address] Dr. Adam Mejía RBC 4.71 106/ul Normal 4.20-5.40 [facility] Comment on above: Performed By: #### U MICRO, PREGU, ERUR #### [facility] [address] [place] [address] Dr. Adam Mejía WBC 9.2 103/ul Normal 4.0-11.0 [facility] Comment on above: Performed By: #### U MICRO, PREGU, ERUR #### [facility] [address] [place] [address] Dr. Adam Mejía ER URINE PROFILEon 3 Bilirubin Ql (U) Negative Normal NEGATIVE [facility] Comment on above: Performed By: #### U MICRO, PREGU, ERUR #### [facility] [address] [place] [address] Dr. Adam Mejía Clarity (U) CLEAR Normal CLEAR [facility] Comment on above: Performed By: #### U MICRO, PREGU, ERUR #### [facility] [address] [place] [address] Dr. Adam Mejía Color (U) LT. YELLOW Normal YELLOW [facility] Comment on above: Performed By: #### U MICRO, PREGU, ERUR #### [facility] [address] [place] [address] Dr. Adam Mejía ERUAHD A micrscopic examina tion will be performed if indicated. Normal [facility] Comment on above: Performed By: #### U MICRO, PREGU, ERUR #### [facility] [address] [address] [address] Adam Mejía Glucose Ql (U) Negative Normal NEGATIVE [facility] Comment on above: Performed By: #### U MICRO, PREGU, ERUR #### [facility] [address] [address] [address] Adam Mejía Hemoglobin Ql (U) SMALL Abnormal NEGATIVE [facility] Comment on above: Performed By: #### U MICRO, PREGU, ERUR #### [facility] [address] [address] [address] Adam Mejía Ketones Ql (U) Negative Normal NEGATIVE [facility] Comment on above: Performed By: #### U MICRO, PREGU, ERUR #### [facility] [address] [place] [address] Dr. Adam Mejía LEUKOCYTES Negative Normal NEGATIVE [facility] Comment on above: Performed By: #### U MICRO, PREGU, ERUR #### [facility] [address] [place] [address] Dr. Adam Mejía Nitrite Ql (U) Negative Normal NEGATIVE [facility] Comment on above: Performed By: #### U MICRO, PREGU, ERUR #### [facility] [address] [place] [address] Dr. Adam Mejía pH (U) 8.0 [pH] Normal 5-9 [facility] Comment on above: Performed By: #### U MICRO, PREGU, ERUR #### [facility] [address] [address] [address] Adam Mejía SPEC GRAVITY 1.010 Normal 1.005-<=1. 025 [facility] Comment on above: Performed By: #### U MICRO, PREGU, ERUR #### [facility] [address] [place] [address] Dr. Adam Mejía UA PROTEIN Negative Normal NEGATIVE/ TRACE [facility] Comment on above: Performed By: #### U MICRO, PREGU, ERUR #### [facility] [address] [place] [address] Dr. Adam Mejía UR MICRO IND INDICATED Normal [facility] Comment on above: Performed By: #### U MICRO, PREGU, ERUR #### [facility] [address] [place] [address] Dr. Adam Mejía Urobilinogen Qn (U) 1.0 {Brinda'U}/dL Normal 0.2 - 1. 0 [facility] Comment on above: Performed By: #### U MICRO, PREGU, ERUR #### [facility] [address] [place] [address] Dr. Adam Mejía LACTATE/LACTIC ACIDon 2022 Lactate [Moles/Vol] 0.5 mmol/L Normal 0.4-2.0 [facility] Comment on above: Performed By: #### U MICRO, PREGU, ERUR #### [facility] [address] [place] [address] Dr. Adam Mejía LIPASEon 12-07-2022 Lipase [Catalytic activity/Vol] 219.0 U/L Normal 73.0-393.0 [facility] Comment on above: Performed By: #### U MICRO, PREGU, ERUR #### [facility] [address] [place] [address] Dr. Adam Mejía LIVER PROFILEon 12-07-2022 Albumin [Mass/Vol] 3.7 g/dL Normal 3.4-5.0 [facility] Comment on above: Performed By: #### U MICRO, PREGU, ERUR #### [facility] [address] [place] [address] Dr. Adam Mejía Albumin/Globulin [Mass ratio] 1.1 {ratio} Normal [facility] Comment on above: Performed By: #### U MICRO, PREGU, ERUR #### [facility] [address] [place] [address] Dr. Adam Mejía ALP [Catalytic activity/Vol] 57 U/L Normal 46-116 [facility] Comment on above: Performed By: #### U MICRO, PREGU, ERUR #### [facility] [address] [place] [address] Dr. Adam Mejía ALT [Catalytic activity/Vol] 15 U/L Normal 14-59 [facility] Comment on above: Performed By: #### U MICRO, PREGU, ERUR #### [facility] [address] [address] [address] Adam Mejía AST [Catalytic activity/Vol] 13 U/L Critically low 15-37 [facility] Comment on above: Performed By: #### U MICRO, PREGU, ERUR #### [facility] [address] [address] [address] Adam Mejía BILI, CONJUGATED 0.2 mg/dL Normal 0.0-0.2 [facility] Comment on above: Performed By: #### U MICRO, PREGU, ERUR #### [facility] [address] [place] [address] Dr. Adam Mejía Bilirubin [Mass/Vol] 0.2 mg/dL Normal 0.2-1.0 [facility] Comment on above: Performed By: #### U MICRO, PREGU, ERUR #### [facility] [address] [place] [address] Dr. Adam Mejía Globulin (S) [Mass/Vol] 3.4 g/dL Normal [facility] Comment on above: Performed By: #### U MICRO, PREGU, ERUR #### [facility] [address] [place] [address] Dr. Adam Mejía Protein [Mass/Vol] 7.1 g/dL Normal 6.4-8.2 [facility] Comment on above: Performed By: #### U MICRO, PREGU, ERUR #### [facility] [address] [place] [address] Dr. Adam Mejía PROF CHEM 8 (BAS METB)on Anion gap [Moles/Vol] 12.0 mmol/L Normal [facility] Comment on above: Performed By: #### U MICRO, PREGU, ERUR #### [facility] [address] [place] [address] Dr. Adam Mejía Calcium [Mass/Vol] 8.8 mg/dL Normal 8.5-10.1 [facility] Comment on above: Performed By: #### U MICRO, PREGU, ERUR #### [facility] [address] [address] [address] Adam Mejía Chloride [Moles/Vol] 102 mmol/L Normal 98-107 [facility] Comment on above: Performed By: #### U MICRO, PREGU, ERUR #### [facility] [address] [address] [address] Adam Mejía CO2 [Moles/Vol] 26.9 mmol/L Normal 21.0-32.0 [facility] Comment on above: Performed By: #### U MICRO, PREGU, ERUR #### [facility] [address] [address] [address] Adam Mejía Creatinine [Mass/Vol] 0.75 mg/dL Normal 0.55-1.02 [facility] Comment on above: Performed By: #### U MICRO, PREGU, ERUR #### [facility] [address] [address] [address] Adam Mejía EGFR-AF NIUEAN >60 Normal >=60 [facility] Comment on above: Performed By: #### U MICRO, PREGU, ERUR #### [facility] [address] [address] [address] Adam Mejía EGFR-NON AF NIUEAN >60 Normal >=60 [facility] Comment on above: Performed By: #### U MICRO, PREGU, ERUR #### [facility] [address] [address] [address] Adam Mejía Glucose [Mass/Vol] 97 mg/dL Normal 74-106 [facility] Comment on above: Performed By: #### U MICRO, PREGU, ERUR #### [facility] [address] [place] [address] Dr. Adam Mejía Potassium [Moles/Vol] 3.9 mmol/L Normal 3.5-5.1 [facility] Comment on above: Performed By: #### U MICRO, PREGU, ERUR #### [facility] [address] [address] [address] Adam Mejía Sodium [Moles/Vol] 137 mmol/L Normal 136-145 [facility] Comment on above: Performed By: #### U MICRO, PREGU, ERUR #### [facility] [address] [place] [address] Dr. Adam Mejía Urea nitrogen [Mass/Vol] 13.0 mg/dL Normal 7.0-18.0 [facility] Comment on above: Performed By: #### U MICRO, PREGU, ERUR #### [facility] [address] [place] [address] Dr. Adam Mejía Urea nitrogen/Creatinine [Mass ratio] 17.3 mg/mg Normal [facility] Comment on above: Performed By: #### U MICRO, PREGU, ERUR #### [facility] [address] [place] [address] Dr. Adam Mejía URINE MICROSCOPIC ONLYon BACTERIA NONE SEEN Normal NONE SEEN [facility] Comment on above: Performed By: #### U MICRO, PREGU, ERUR #### [facility] [address] [place] [address] Dr. Adam Mejía Bacteria identified Cx Nom (U) NOT INDICATED Normal [facility] Comment on above: Performed By: #### U MICRO, PREGU, ERUR #### [facility] [address] [place] [address] Dr. Adam Mejía CAST NONE SEEN Normal NONE SEEN [facility] Comment on above: Performed By: #### U MICRO, PREGU, ERUR #### [facility] [address] [place] [address] Dr. Adam Mejía Crystals LM Nom (Urine sed) NONE SEEN Normal NONE SEEN [facility] Comment on above: Performed By: #### U MICRO, PREGU, ERUR #### [facility] [address] [place] [address] Dr. Adam Mejía Epithelial cells LM Ql (Urine sed) RARE Normal NONE SEEN /RARE [facility] Comment on above: Performed By: #### U MICRO, PREGU, ERUR #### [facility] [address] [place] [address] Dr. Adam Mejía MUCOUS NONE SEEN Normal NONE SEEN [facility] Comment on above: Performed By: #### U MICRO, PREGU, ERUR #### [facility] [address] [address] [address] Adam Mejía RBC 2-5 Abnormal 0-2 [facility] Comment on above: Performed By: #### U MICRO, PREGU, ERUR #### [facility] [address] [address] [address] Adam Mejía WBC NONE SEEN Normal NONE SEEN [facility] Comment on above: Performed By: #### U MICRO, PREGU, ERUR #### [facility] [address] [address] [address] Adam Mejía XR ABD FLAT UP_PA [...] LENI ANGEL Date: 2022-12-07 00:23 Normal [facility] US PELVIS TRANSVAGon 023 US PELVIS [...] by: KALPESH FOWLER Date: 2022-11-29 11:27 Normal [facility] No Panel InformationOrdered By: Dayne Horton on 10-12-2022 25-Hydroxy Vitamin D Total 10.4 ng/mL 30-100 [facility] Comment on above: VITAMIN D STATUS 25( OH)VITAMIN D RANGE (ng/mL) Deficient <20 Insufficient 20 to <30Sufficient 30 to 100Reference: Pam MF,Abelardo NC, Cj GARZA, et al. Evaluation,treatment, and prevention of vitamin D deficiency; an Endocrine Society clinical practice guideline. JCEM. 2010; 96(7):1911-30. Serum or plasma thyroglobuli n antibody assay (units/volume)Ordered By: Dayne Horton on 10-12-2022 Thyroglobulin Ab Qn [IU]/mL 0.0-0.9 [facility] Comment on above: Thyroglobulin Antibo dy measured by [employer]GR BioSciencesMethodologyPerformed at: CB - [facility] [address] [id number] Director: Alan Macias PhD, Phone: [phone] Serum or plasma thyroperoxid ase antibody assay (units/volume)Ordered By: Dayne Horton on 10-12-2022 TPO Ab Qn 11 [IU]/mL 0-34 [facility] Serum thyrotropin receptor a ntibody assay (units/volume)Ordered By: Dayne Horton on 10-12-2022 TSH receptor Ab Qn (S) <1.10 IU/L 0.00-1.75 [facility] Comment on above: Performed at: [address] [id number] Director: Artemio Guillen MD, Phone: [phone] TSH DL <= 0.005 mIU/L QnOrde red By: Dayne Horton on 10-12-2022 TSH Qn 0.06 m[IU]/L 0.45-5.33 [facility] Thyroxine (T4) free [Mass/vo lume] in Serum or PlasmaOrdered By: Dayne Horton on 10-12-2022 Free T4 [Mass/Vol] 1.02 ng/dL 0.61-1.12 [facility] Triiodothyronine (T3) Free [ Mass/volume] in Serum or PlasmaOrdered By: Dayne Horton on 10-12-2022 Free T3 [Mass/Vol] 3.90 pg/mL 2.50-3.90 [facility] Basophils Auto (Bld) [#/Vol] Ordered By: Kelly Hough on 10-03-2022 Basophils (Bld) [#/Vol] 0.0 10*3/uL 0.0-0.2 [facility] Basophils/100 WBC Auto (Bld) Ordered By: Kelly Hough on 10-03-2022 Basophils/100 WBC (Bld) 0.7 % . [facility] CT biopsyOrdered By: Kelly Ramos on 10-03-2022 Transferrin [Mass/Vol] 230 mg/dL 180-380 [facility] Eosinophils Auto (Bld) [#/Vo l]Ordered By: Kelly Hough on 10-03-2022 Eosinophils (Bld) [#/Vol] 0.1 10*3/uL 0.0-0.45 [facility] Eosinophils/100 WBC Auto (Bl d)Ordered By: Kelly Hough on 10-03-2022 Eosinophils/100 WBC (Bld) 2.4 % . [facility] Erythrocyte distribution wid th Auto (RBC) [Ratio]Ordered By: Kelly Hough on 10-03-2022 Erythrocyte distribution width (RBC) [Ratio] 15.2 % 11.9-15.3 [facility] Ferritin [Mass/volume] in Se rum or PlasmaOrdered By: Kelly Hough on 10-03-2022 Ferritin [Mass/Vol] 7.7 ng/mL 11-306.8 [facility] Hematocrit Auto (Bld) [Volum e fraction]Ordered By: Kelly Hough on 10-03-2022 Hematocrit (Bld) [Volume fraction] 31.2 % 34.0-46.4 [facility] Hemoglobin [Mass/volume] in BloodOrdered By: Kelly Hough on 10-03-2022 Hemoglobin (Bld) [Mass/Vol] 9.7 g/dL 11.8-15.4 [facility] Iron [Mass/volume] in Serum or PlasmaOrdered By: Kelly Hough on 10-03-2022 Iron [Mass/Vol] 96 ug/dL 40-150 [facility] Iron binding capacity [Mass/ volume] in Serum or PlasmaOrdered By: Kelly Hough on 10-03-2022 Iron binding capacity [Mass/Vol] 322 ug/dL 255-450 [facility] Iron saturation [Mass Fracti on] in Serum or PlasmaOrdered By: Kelly Hough on 10-03-2022 Iron saturation [Mass fraction] 29.8 % 20-50 [facility] Leukocytes [#/volume] correc delmer for nucleated erythrocytes in Blood by Automated counOrdered By: Kelly Hough on 10-03-2022 WBC corrected for nucl RBC Auto (Bld) [#/Vol] 5.6 10*3/uL 3.8-11.6 [facility] Lymphocytes Auto (Bld) [#/Vo l]Ordered By: Kelly Hough on 10-03-2022 Lymphocytes (Bld) [#/Vol] 1.7 10*3/uL 1.00-4.8 [facility] Lymphocytes/100 WBC Auto (Bl d)Ordered By: Kelly Hough on 10-03-2022 Lymphocytes/100 WBC (Bld) 30.9 % . [facility] MCH Auto (RBC) [Entitic mass ]Ordered By: Kelly Hough on 10-03-2022 MCH (RBC) [Entitic mass] 21.8 pg 24.7-34.3 [facility] MCHC Auto (RBC) [Mass/Vol]Or dered By: Kelly Hough on 10-03-2022 MCHC (RBC) [Mass/Vol] 31.2 g/dL 32.0-35.0 [facility] MCV Auto (RBC) [Entitic vol] Ordered By: Kelly Hough on 10-03-2022 MCV (RBC) [Entitic vol] 70.0 fL 80-100 [facility] Monocytes Auto (Bld) [#/Vol] Ordered By: Kelly Hough on 10-03-2022 Monocytes (Bld) [#/Vol] 0.4 10*3/uL 0.0-0.8 [facility] Monocytes/100 WBC Auto (Bld) Ordered By: Kelly Hough on 10-03-2022 Monocytes/100 WBC (Bld) 6.3 % . [facility] Neutrophils Auto (Bld) [#/Vo l]Ordered By: Kelly Hough on 10-03-2022 Neutrophils (Bld) [#/Vol] 3.4 10*3/uL 1.8-7.7 [facility] Neutrophils/100 WBC Auto (Bl d)Ordered By: Kelly Hough on 10-03-2022 Neutrophils/100 WBC (Bld) 59.7 % . [facility] Nucleated erythrocytes [Pres ence] in Blood by Automated countOrdered By: Kelly Hough on 10-03-2022 Nucleated RBC Auto Ql (Bld) 0.1 /100{WBC} 0-0.5 [facility] Platelet mean volume Auto (B ld) [Entitic vol]Ordered By: Kelly Hough on 10-03-2022 Platelet mean volume (Bld) [Entitic vol] 9.4 fL 6.3-10.7 [facility] Platelets Auto (Bld) [#/Vol] Ordered By: Kelly Hough on 10-03-2022 Platelets (Bld) [#/Vol] 226 10*3/uL 150-450 [facility] RBC Auto (Bld) [#/Vol]Ordere d By: Kelly Ryanboske on 10-03-2022 RBC (Bld) [#/Vol] 4.46 10*6/uL 3.60-5.00 [facility] WBC Auto (Bld) [#/Vol]Ordere d By: Kelly France on 10-03-2022 WBC (Bld) [#/Vol] 5.6 10*3/uL 3.8-11.6 [facility] Free thyroxine indexOrdered By: Yudelka Lopez on 10-02-2022 Free T4 index Calc [Mass/Vol] 2.8 1.2-4.9 [facility] No Panel InformationOrdered By: Yudelka Lopez on 10-02-2022 Free Thyroxine (T4) Direct 8.6 ug/dL 4.5-12.0 [facility] TSH DL <= 0.005 mIU/L QnOrde red By: Yudelka Lopez on 10-02-2022 TSH Qn 0.037 m[IU]/L 0.450-4.50 0 [facility] Triiodothyronine (T3) [Mass/ volume] in Serum or PlasmaOrdered By: Yudelka Lopez on 10-02-2022 T3 [Mass/Vol] 135 ng/dL 71-180 [facility] Comment on above: Performed at: [address] [id number] Director: Alan Macias PhD, Phone: [phone] Triiodothyronine (T3) resin uptake testOrdered By: Yudelka Lopez on 10-02-2022 T3RU 33 % 24-39 [facility] Activated partial thrombopla stin time (aPTT) in platelet poor plasma by coagulation aOrdered By: Jim Vega on 09-21-2022 aPTT Coag (PPP) [Time] 30.8 s 25.1-36.5 [facility] Albumin [Mass/volume] in Ser um or PlasmaOrdered By: Jim Vega on 09-21-2022 Albumin [Mass/Vol] 3.7 g/dL 3.2-5.5 [facility] Automated erythrocytes count in urine sediment (number/area)Ordered By: Jim Vega on 09-21-2022 RBC Auto (Urine sed) [#/Area] 1-2 [HPF] 0-4 [facility] Automated leukocytes count i n urine sediment (number/area)Ordered By: Jim Vega on 09-21-2022 WBC Auto (Urine sed) [#/Area] 0-1 [HPF] 0-4 [facility] Basophils Auto (Bld) [#/Vol] Ordered By: Jim Vega on 09-21-2022 Basophils (Bld) [#/Vol] 0.0 10*3/uL 0.0-0.2 [facility] Basophils/100 WBC Auto (Bld) Ordered By: Jim Vega on 09-21-2022 Basophils/100 WBC (Bld) 0.5 % . [facility] Bilirubin Test strip Ql (U)O rdered By: Jim Vega on 09-21-2022 Bilirubin Ql (U) Negative Negative [facility] COVID CepheidOrdered By: Rahat Vega on 09-21-2022 SARS-CoV-2 (COVID-19) Ab IA Ql Negative Negative [facility] Comment on above: This is a duplicate [employer] Xpert Xpress CoV-2/Flu/RSV Plus RNA by RT-PCR result to be used for statistical tracking purpose only. SARS-CoV-2 (COVID-19) RNA HIRAM+probe Ql (Unsp spec) [facility] SARS-CoV-2 (COVID-19) RNA HIRAM+probe Ql (Unsp spec) [facility] Color Auto (U)Ordered By: Narinder Vega on 09-21-2022 Color (U) Yellow Yellow [facility] Creatinine and Glomerular fi ltration rate.predicted panel (S/P/Bld)Ordered By: Jim Vega on 09-21-2022 Creatinine [Mass/Vol] 0.79 mg/dL 0.44-1.03 [facility] Eosinophils Auto (Bld) [#/Vo l]Ordered By: Jim Vega on 09-21-2022 Eosinophils (Bld) [#/Vol] 0.1 10*3/uL 0.0-0.45 [facility] Eosinophils/100 WBC Auto (Bl d)Ordered By: Jim Vega on 09-21-2022 Eosinophils/100 WBC (Bld) 2.7 % . [facility] Erythrocyte distribution wid th Auto (RBC) [Ratio]Ordered By: Jim Vega on 09-21-2022 Erythrocyte distribution width (RBC) [Ratio] 15.6 % 11.9-15.3 [facility] Estimated glomerular filtrat ion rate (GFR) non- AmericanOrdered By: Jim Vega on 09-21-2022 GFR/1.73 sq M.predicted among non-blacks MDRD (S/P/Bld) [Vol rate/Area] > 60 mL/Min [facility] Globulin Calc (S) [Mass/Vol] Ordered By: Jim Vega on 09-21-2022 Globulin (S) [Mass/Vol] 3.3 g/dL [facility] HCG ( test) IA.rapi d Ql (U)Ordered By: Jim Vega on 09-21-2022 HCG ( test) Ql (U) Negative [facility] Hematocrit Auto (Bld) [Volum e fraction]Ordered By: Jim Vega on 09-21-2022 Hematocrit (Bld) [Volume fraction] 31.9 % 34.0-46.4 [facility] Hemoglobin [Mass/volume] in BloodOrdered By: Jim Vega on 09-21-2022 Hemoglobin (Bld) [Mass/Vol] 9.9 g/dL 11.8-15.4 [facility] Ketones Auto test strip (U) [Mass/Vol]Ordered By: Jim Vega on 09-21-2022 Ketones (U) [Mass/Vol] Negative [facility] - CoagulationOrde red By: Jim Vega on 09-21-2022 PT Coag (PPP) [Time] 13.3 s 9.0-12.9 [facility] - UrinalysisOrder ed By: Jim Vega on 09-21-2022 Hyaline casts LM Ql (Urine sed) None seen [LPF] 0-8 [facility] Leukocytes [#/volume] correc delmer for nucleated erythrocytes in Blood by Automated counOrdered By: Jim Vega on 09-21-2022 WBC corrected for nucl RBC Auto (Bld) [#/Vol] 5.4 10*3/uL 3.8-11.6 [facility] Lymphocytes Auto (Bld) [#/Vo l]Ordered By: Jim Vega on 09-21-2022 Lymphocytes (Bld) [#/Vol] 1.4 10*3/uL 1.00-4.8 [facility] Lymphocytes/100 WBC Auto (Bl d)Ordered By: Jim Vega on 09-21-2022 Lymphocytes/100 WBC (Bld) 26.1 % . [facility] MCH Auto (RBC) [Entitic mass ]Ordered By: Jim Vega on 09-21-2022 MCH (RBC) [Entitic mass] 21.7 pg 24.7-34.3 [facility] MCHC Auto (RBC) [Mass/Vol]Or dered By: Jim Vega on 09-21-2022 MCHC (RBC) [Mass/Vol] 31.0 g/dL 32.0-35.0 [facility] MCV Auto (RBC) [Entitic vol] Ordered By: Jim Vega on 09-21-2022 MCV (RBC) [Entitic vol] 70.1 fL 80-100 [facility] Monocyte distribution width [Entitic volume] in Blood by AutomatedOrdered By: Jim Vega on 09-21-2022 Monocyte distribution width Auto (Bld) [Entitic vol] 15.00 % 0.00-20.00 [facility] Monocytes Auto (Bld) [#/Vol] Ordered By: Jim Vega on 09-21-2022 Monocytes (Bld) [#/Vol] 0.4 10*3/uL 0.0-0.8 [facility] Monocytes/100 WBC Auto (Bld) Ordered By: Jim Vega on 09-21-2022 Monocytes/100 WBC (Bld) 6.9 % . [facility] Neutrophils Auto (Bld) [#/Vo l]Ordered By: Jim Vega on 09-21-2022 Neutrophils (Bld) [#/Vol] 3.4 10*3/uL 1.8-7.7 [facility] Neutrophils/100 WBC Auto (Bl d)Ordered By: Jim Vega on 09-21-2022 Neutrophils/100 WBC (Bld) 63.8 % . [facility] Nitrite Test strip Ql (U)Ord ered By: Jim Vega on 09-21-2022 Nitrite Ql (U) Negative Negative [facility] No Panel InformationOrdered By: Jim Vega on 09-21-2022 D-Dimer Quantitative (PE/DVT) 205 ng/mL 0-243 [facility] Comment on above: The reference range [...] conditions. Estimated GFR () > 60 mL/Min [facility] Comment on above: GFR estimated refere nce range: According to KDOQI guidelines, <60 ml/min/1.73m2 is sufficient to diagnose a patient with chronic kidney disease. Pharmacy Creatinine Clearance (Chem 96.49 [facility] Nucleated erythrocytes [Pres ence] in Blood by Automated countOrdered By: Jim Vega on 09-21-2022 Nucleated RBC Auto Ql (Bld) 0.4 /100{WBC} 0-0.5 [facility] Platelet mean volume Auto (B ld) [Entitic vol]Ordered By: Jim Vega on 09-21-2022 Platelet mean volume (Bld) [Entitic vol] 10.0 fL 6.3-10.7 [facility] Platelet poor plasma interna tional normalized ratio (INR) by coagulation assay (relatOrdered By: Jim Vega on 09-21-2022 INR Coag (PPP) [Relative time] 1.2 {INR} [facility] Comment on above: INR Therapeutic Rang [...] 09-21-2022 Platelets (Bld) [#/Vol] 215 10*3/uL 150-450 [facility] Protein Auto test strip (U) [Mass/Vol]Ordered By: Jim Vega on 09-21-2022 Protein (U) [Mass/Vol] Negative Negative [facility] Protein [Mass/volume] in Ser um or PlasmaOrdered By: Jim Vega on 09-21-2022 Protein [Mass/Vol] 7.0 g/dL 6.1-7.9 [facility] RBC Auto (Bld) [#/Vol]Ordere d By: Jim Vega on 09-21-2022 RBC (Bld) [#/Vol] 4.54 10*6/uL 3.60-5.00 [facility] Serum or plasma alanine keene otransferase measurement without P-5'-P (enzymatic activiOrdered By: Jim Vega on 09-21-2022 ALT No additional P-5'-P [Catalytic activity/Vol] 11 U/L 10-60 [facility] Serum or plasma albumin/glob ulin mass ratioOrdered By: Jim Vega on 09-21-2022 Albumin/Globulin [Mass ratio] 1.1 {ratio} [facility] Serum or plasma alkaline jared sphatase measurement (enzymatic activity/volume)Ordered By: Jim Vega on 09-21-2022 ALP [Catalytic activity/Vol] 47 U/L 32-92 [facility] Serum or plasma anion gap de terminationOrdered By: Jim Vega on 09-21-2022 Anion gap [Moles/Vol] 10.0 mmol/L 6.0-15.0 [facility] Serum or plasma aspartate am inotransferase measurement (enzymatic activity/volume)Ordered By: Jim Vega on 09-21-2022 AST [Catalytic activity/Vol] 13 U/L 10-42 [facility] Serum or plasma calcium marychuy urement (mass/volume)Ordered By: Jim Vega on 09-21-2022 Calcium [Mass/Vol] 8.9 mg/dL 8.2-10.2 [facility] Serum or plasma chloride nemo surement (moles/volume)Ordered By: Jim Vega on 09-21-2022 Chloride [Moles/Vol] 105 mmol/L 95-114 [facility] Serum or plasma glucose marychuy urement (mass/volume)Ordered By: Jim Vega on 09-21-2022 Glucose [Mass/Vol] 114 mg/dL 70-100 [facility] Comment on above: ADA recommended refe rence rangeRandom Glucose Reference Range is dependent on time and content of last meal. Glucose of more than 200 mg/dL in a nonstressed, ambulatory subject supports the diagnosis of Diabetes Mellitus. Serum or plasma potassium me asurement (moles/volume)Ordered By: Jim Vega on 09-21-2022 Potassium [Moles/Vol] 3.5 mmol/L 3.5-5.1 [facility] Serum or plasma sodium measu rement (moles/volume)Ordered By: Jim Vega on 09-21-2022 Sodium [Moles/Vol] 134 mmol/L 136-146 [facility] Serum or plasma total biliru bin measurement (mass/volume)Ordered By: Jim Vega on 09-21-2022 Bilirubin [Mass/Vol] 0.5 mg/dL 0.3-1.2 [facility] Serum or plasma total carbon dioxide measurement (moles/volume)Ordered By: Jim Vega on 09-21-2022 CO2 [Moles/Vol] 22.5 mmol/L 22.0-30.0 [facility] Serum or plasma urea nitroge n measurement (mass/volume)Ordered By: Jim Vega on 09-21-2022 Urea nitrogen [Mass/Vol] 5 mg/dL - [facility] Specific gravity Auto test s trip (U) [Rel density]Ordered By: Jim Vega on 09-21-2022 Specific gravity (U) [Rel density] 1.004 1.001-1.03 0 [facility] Squamous epithelial cells de tection in urine sediment by light microscopyOrdered By: Jim Vega on 09-21-2022 Epithelial cells.squamous LM Ql (Urine sed) 0-1 [HPF] 0-2 [facility] TSH DL <= 0.005 mIU/L QnOrde red By: Jim Vega on 09-21-2022 TSH Qn 0.14 m[IU]/L 0.45-5.33 [facility] Thyroxine (T4) free [Mass/vo lume] in Serum or PlasmaOrdered By: Jim Vega on 09-21-2022 Free T4 [Mass/Vol] 1.30 ng/dL 0.61-1.12 [facility] Troponin I.cardiac [Mass/vol ume] in Serum or Plasma by High sensitivity methodOrdered By: Jim Vega on 09-21-2022 Troponin I.cardiac High sensitivity method [Mass/Vol] < 3 pg/mL 0-15 [facility] Urine bacteria detection by automated methodOrdered By: Jim Vega on 09-21-2022 Bacteria Auto Ql (U) None seen None Seen [facility] Urine clarity by refractomet ry automatedOrdered By: Jim Vega on 09-21-2022 Clarity Refractometry automated (U) Clear Clear [facility] Urine glucose measurement by automated test strip (mass/volume)Ordered By: Jim Vega on 09-21-2022 Glucose Auto test strip (U) [Mass/Vol] Normal mg/dL Normal [facility] Urine hemoglobin detection b y automated test stripOrdered By: Jim Vega on 09-21-2022 Hemoglobin Auto test strip Ql (U) Trace Negative [facility] Urine leukocyte esterase det ection by automated test stripOrdered By: Jim Vega on 09-21-2022 Leukocyte esterase Auto test strip Ql (U) Negative Negative [facility] Urobilinogen Auto test strip (U) [Mass/Vol]Ordered By: Jim Vega on 09-21-2022 Urobilinogen (U) [Mass/Vol] Normal mg/dL Normal [facility] WBC Auto (Bld) [#/Vol]Ordere d By: Jim Vega on 09-21-2022 WBC (Bld) [#/Vol] 5.4 10*3/uL 3.8-11.6 [facility] pH Auto test strip (U)Ordere d By: Jim Silvia on 09-21-2022 pH (U) 7.0 [pH] 5.0-9.0 [facility] Anisocytosis LM Ql (Bld)Orde red By: Tejinder Peraza on 09-15-2022 Anisocytosis Ql (Bld) Slight [facility] Basophils Auto (Bld) [#/Vol] Ordered By: Tejinder Peraza on 09-15-2022 Basophils (Bld) [#/Vol] 0.0 10*3/uL 0.0-0.2 [facility] Basophils/100 WBC Auto (Bld) Ordered By: Tejinder Peraza on 09-15-2022 Basophils/100 WBC (Bld) 0.3 % . [facility] Eosinophils Auto (Bld) [#/Vo l]Ordered By: Tejinder Peraza on 09-15-2022 Eosinophils (Bld) [#/Vol] 0.1 10*3/uL 0.0-0.45 [facility] Eosinophils/100 WBC Auto (Bl d)Ordered By: Tejinder Peraza on 09-15-2022 Eosinophils/100 WBC (Bld) 1.2 % . [facility] Erythrocyte distribution wid th Auto (RBC) [Ratio]Ordered By: Tejinder Peraza on 09-15-2022 Erythrocyte distribution width (RBC) [Ratio] 15.2 % 11.9-15.3 [facility] Hematocrit Auto (Bld) [Volum e fraction]Ordered By: Tejinder Peraza on 09-15-2022 Hematocrit (Bld) [Volume fraction] 30.9 % 34.0-46.4 [facility] Hemoglobin [Mass/volume] in BloodOrdered By: Tejinder Peraza on 09-15-2022 Hemoglobin (Bld) [Mass/Vol] 9.6 g/dL 11.8-15.4 [facility] Hypochromia LM Ql (Bld)Order ed By: Tejinder Peraza on 09-15-2022 Hypochromia Ql (Bld) Slight [facility] Leukocytes [#/volume] correc delmer for nucleated erythrocytes in Blood by Automated counOrdered By: Tejinder Peraza on 09-15-2022 WBC corrected for nucl RBC Auto (Bld) [#/Vol] 7.5 10*3/uL 3.8-11.6 [facility] Lymphocytes Auto (Bld) [#/Vo l]Ordered By: Tejinder Peraza on 09-15-2022 Lymphocytes (Bld) [#/Vol] 1.7 10*3/uL 1.00-4.8 [facility] Lymphocytes/100 WBC Auto (Bl d)Ordered By: Tejinder Peraza on 09-15-2022 Lymphocytes/100 WBC (Bld) 22.2 % . [facility] MCH Auto (RBC) [Entitic mass ]Ordered By: Tejinder Peraza on 09-15-2022 MCH (RBC) [Entitic mass] 21.8 pg 24.7-34.3 [facility] MCHC Auto (RBC) [Mass/Vol]Or dered By: Tejinder Peraza on 09-15-2022 MCHC (RBC) [Mass/Vol] 31.1 g/dL 32.0-35.0 [facility] MCV Auto (RBC) [Entitic vol] Ordered By: Tejinder Peraza on 09-15-2022 MCV (RBC) [Entitic vol] 70.0 fL 80-100 [facility] Microcytes LM Ql (Bld)Ordere d By: Tejinder Peraza on 09-15-2022 Microcytes Ql (Bld) Slight [facility] Monocytes Auto (Bld) [#/Vol] Ordered By: Tejinder Peraza on 09-15-2022 Monocytes (Bld) [#/Vol] 0.4 10*3/uL 0.0-0.8 [facility] Monocytes/100 WBC Auto (Bld) Ordered By: Tejinder Peraza on 09-15-2022 Monocytes/100 WBC (Bld) 5.3 % . [facility] Neutrophils Auto (Bld) [#/Vo l]Ordered By: Tejinder Peraza on 09-15-2022 Neutrophils (Bld) [#/Vol] 5.3 10*3/uL 1.8-7.7 [facility] Neutrophils/100 WBC Auto (Bl d)Ordered By: Tejinder Peraza on 09-15-2022 Neutrophils/100 WBC (Bld) 71.0 % . [facility] No Panel InformationOrdered By: Tejinder Peraza on 09-15-2022 D-Dimer Quantitative (PE/DVT) 245 ng/mL 0-243 [facility] Comment on above: The reference range [...] RBC Auto Ql (Bld) 0.1 /100{WBC} 0-0.5 [facility] Ovalocyte detectionOrdered B y: Tejinder Peraza on 09-15-2022 Ovalocytes LM Ql (Bld) [facility] Platelet adequacy [Presence] in Blood by Light microscopyOrdered By: Tejinder Peraza on 09-15-2022 Platelets LM Ql (Bld) Normal Normal Fir [facility] Platelet mean volume Auto (B ld) [Entitic vol]Ordered By: Tejinder Peraza on 09-15-2022 Platelet mean volume (Bld) [Entitic vol] 9.8 fL 6.3-10.7 [facility] Platelet morphology finding [Identifier] in BloodOrdered By: Tejinder Peraza on 09-15-2022 Platelet morphology finding Nom (Bld) Normal Normal [facility] Platelets Auto (Bld) [#/Vol] Ordered By: Tejinder Peraza on 09-15-2022 Platelets (Bld) [#/Vol] 212 10*3/uL 150-450 [facility] Poikilocytosis [Presence] in Blood by Light microscopyOrdered By: Kip Soviak on 09-15-2022 Poikilocytosis LM Ql (Bld) Slight [facility] Polychromasia [Presence] in Blood by Light microscopyOrdered By: Kip Soviak on 09-15-2022 Polychromasia LM Ql (Bld) Slight [facility] RBC Auto (Bld) [#/Vol]Ordere d By: Kip Soviak on 09-15-2022 RBC (Bld) [#/Vol] 4.42 10*6/uL 3.60-5.00 [facility] RBC morphologyOrdered By: Ki p Soviak on 09-15-2022 RBC morphology finding Nom (Bld) N/A [facility] WBC Auto (Bld) [#/Vol]Ordere d By: Kip Soviak on 09-15-2022 WBC (Bld) [#/Vol] 7.5 10*3/uL 3.8-11.6 [facility] AFP (TUMOR MARKER)on 022 AFP, Serum, Tumor Marker <1.8 Normal 0.0-4.7 [facility] Comment on above: Result Comment: [employer] Electrochemiluminescence Immunoassay (ECLIA) . Values obtained with different assay methods or kits cannot be used interchangeably. Results cannot be interpreted as absolute evidence of the presence or absence of malignant disease. . This test is not interpretable in females. Performed By: #### U MICRO, PREGU, ERUR #### [facility] [address], [place] [address] Dr. Adam Mejía CA 125on 08-06-2022 Cancer Antigen (CA) 125 29.7 U/mL Normal 0.0-38.1 [facility] Comment on above: Result Comment: [employer] Electrochemiluminescence Immunoassay (ECLIA) . Values obtained with different assay methods or kits cannot be used interchangeably. Results cannot be interpreted as absolute evidence of the presence or absence of malignant disease. Performed By: #### U MICRO, PREGU, ERUR #### [facility] [address] [address] [address] Adam Mejía CEAon 08-06-2022 CEA 0.9 ng/mL Normal 0.0-4.7 [facility] Comment on above: Result Comment: Nons mokers <3.9 Smokers <5.6 . [employer] Electrochemiluminescence Immunoassay (ECLIA) . Values obtained with different assay methods or kits cannot be used interchangeably. Results cannot be interpreted as absolute evidence of the presence or absence of malignant disease. Performed By: #### U VERA PREGU, ERUR #### [facility] [address] [place] [address] Dr. Adam Mejía HCG QUANT TUMOR MARKERon HCG QNT TUMOR MARKER <1 Normal [facility] Comment on above: Result Comment: Fema [...] developed and its performance characteristics determined by [employer]. It has not been cleared or approved by the Food and Drug Administration for use as a tumor marker. . This test is not interpretable as a tumor marker in females. Performed By: #### H CGTMOR #### [facility] [address] [place] [address] Dr. Adam Mejía LDHon 08-05-2022 LDH 164 U/L Normal 81-234 [facility] Comment on above: Performed By: #### U PARI GAMEZU, ERUR #### [facility] [address] [place] [address] Dr. Adam Mejía US PELVIS TRANSVAGon 022 [...] by: KALPESH FOWLER Date: 2022-07-29 06:26 Normal [facility] PAP ACOG PANEL 2: 30 to 65on 07-10-2022 . . Normal [facility] Comment on above: Result Comment: Perf ormed at: WB Performed By: #### [id number] #### [facility] [address] [place] [address] Dr. Adam Mejía Age Gdln ACOG Testing 30-65 Normal [facility] Comment on above: Performed By: #### [id number] #### [facility] [address] [address] [address] Adam Mejía DIAGNOSIS: Comment Normal [facility] Comment on above: Result Comment: NEGA TIVE FOR INTRAEPITHELIAL LESION OR MALIGNANCY. Performed at: WB Performed By: #### [id number] #### [facility] [address] [address] [address] Adam Mejía HPV Aptima Negative Normal Negative [facility] Comment on above: Result Comment: This nucleic acid amplification test detects fourteen high-risk HPV types (16,18,31,33,35,39,45,51,52,56,58,59,66,68) without differentiation. Performed at: =G Performed By: #### [id number] #### [facility] [address] [place] [address] Dr. Adam Mejía Methodology: Comment Normal [facility] Comment on above: Result Comment: This liquid based ThinPrep(R) pap test was screened with the use of an image guided system. Performed at: WB Performed By: #### [id number] #### [facility] [address] [place] [address] Dr. Adam Mejía Note: Comment Normal [facility] Comment on above: Result Comment: The Pap smear is a screening test designed to aid in the detection of premalignant and malignant conditions of the uterine cervix. It is not a diagnostic procedure and should not be used as the sole means of detecting cervical cancer. Both false-positive and false-negative reports do occur. . Performed at: WB Performed By: #### [id number] #### [facility] [address] [place] [address] Dr. Adam Mejía Performed by: Comment Normal [facility] Comment on above: Result Comment: [employer] Manager (ASCP) Performed at: WB Performed By: #### [id number] #### [facility] [address] [place] [address] Dr. Adam Mejía Specimen adequacy: Comment Normal [facility] Comment on above: Result Comment: Sati sfactory for evaluation. No endocervical component is identified. Performed at: WB Performed By: #### [id number] #### [facility] [address] [place] [address] Dr. Adam Mejía CHLAMYDIA/GONOCOCCUS HIRAM (SW AB/URINE/PAPon 07-05-2022 Chlamydia trachomatis, HIRAM Negative Normal Negative [facility] Comment on above: Performed By: #### C T/NGNA #### [facility] [address] [place] [address] Dr. Adam Mejía Neisseria gonorrhoeae, HIRAM Negative Normal Negative [facility] Comment on above: Performed By: #### C T/NGNA #### [facility] [address] [place] [address] Dr. Adam Mejía VAGINITIS/VAGINOSIS DNA PROB [place] 07-05-2022 Marion species Positive Abnormal Negative [facility] Comment on above: Performed By: #### V AGINT #### [facility] [address] [address] [address] Adam Mejía Gardnerella vaginalis Positive Abnormal Negative [facility] Comment on above: Performed By: #### V AGINT #### [facility] [address] [address] [address] Adam Mejía Trichomonas vaginalis Negative Normal Negative [facility] Comment on above: Performed By: #### V AGINT #### [facility] [address] [address] [address] Adam Mejía Activated partial thrombopla stin time (aPTT) in platelet poor plasma by coagulation aOrdered By: Frank Silva on 07-04-2022 aPTT Coag (PPP) [Time] 30.9 s 25.1-36.5 [facility] Albumin [Mass/volume] in Ser um or PlasmaOrdered By: Frank Silva on 07-04-2022 Albumin [Mass/Vol] 3.6 g/dL 3.2-5.5 [facility] Automated erythrocytes count in urine sediment (number/area)Ordered By: Frank Silva on 07-04-2022 RBC Auto (Urine sed) [#/Area] 3-4 [HPF] 0-4 [facility] Automated leukocytes count i n urine sediment (number/area)Ordered By: Frank Silva on 07-04-2022 WBC Auto (Urine sed) [#/Area] 0-1 [HPF] 0-4 [facility] Basophils Auto (Bld) [#/Vol] Ordered By: Frank Silva on 07-04-2022 Basophils (Bld) [#/Vol] 0.0 10*3/uL 0.0-0.2 [facility] Basophils/100 WBC Auto (Bld) Ordered By: Frank Silva on 07-04-2022 Basophils/100 WBC (Bld) 0.4 % . [facility] Bilirubin Test strip Ql (U)O rdered By: Frank Silva on 07-04-2022 Bilirubin Ql (U) Negative Negative [facility] Color Auto (U)Ordered By: Godfrey Silva on 07-04-2022 Color (U) Yellow Yellow [facility] Creatinine and Glomerular fi ltration rate.predicted panel (S/P/Bld)Ordered By: Frank Silva on 07-04-2022 Creatinine [Mass/Vol] 0.80 mg/dL 0.44-1.03 [facility] Direct bilirubin measurement Ordered By: Frank Silva on 07-04-2022 Bilirubin.direct [Mass/Vol] mg/dL 0.0-0.4 [facility] Eosinophils Auto (Bld) [#/Vo l]Ordered By: Frank Silva on 07-04-2022 Eosinophils (Bld) [#/Vol] 0.1 10*3/uL 0.0-0.45 [facility] Eosinophils/100 WBC Auto (Bl d)Ordered By: Frank Silva on 07-04-2022 Eosinophils/100 WBC (Bld) 1.2 % . [facility] Erythrocyte distribution wid th Auto (RBC) [Ratio]Ordered By: Frank Silva on 07-04-2022 Erythrocyte distribution width (RBC) [Ratio] 14.9 % 11.9-15.3 [facility] Estimated glomerular filtrat ion rate (GFR) non- AmericanOrdered By: Frank Silva on 07-04-2022 GFR/1.73 sq M.predicted among non-blacks MDRD (S/P/Bld) [Vol rate/Area] > 60 mL/Min [facility] Globulin Calc (S) [Mass/Vol] Ordered By: Frank Silva on 07-04-2022 Globulin (S) [Mass/Vol] 3.3 g/dL [facility] HCG ( test) IA.rapi d Ql (U)Ordered By: Frank Silva on 07-04-2022 HCG ( test) Ql (U) Negative [facility] Hematocrit Auto (Bld) [Volum e fraction]Ordered By: Frank Silva on 07-04-2022 Hematocrit (Bld) [Volume fraction] 32.0 % 34.0-46.4 [facility] Hemoglobin [Mass/volume] in BloodOrdered By: Frank Silva on 07-04-2022 Hemoglobin (Bld) [Mass/Vol] 9.7 g/dL 11.8-15.4 [facility] Ketones Auto test strip (U) [Mass/Vol]Ordered By: Frank Silva on 07-04-2022 Ketones (U) [Mass/Vol] Trace Negative [facility] - Chemistry and C hemistry - challengeOrdered By: Frank Silva on 07-04-2022 Lipase [Catalytic activity/Vol] 43.0 U/L 22-51 [facility] - CoagulationOrde red By: Frank Silva on 07-04-2022 PT Coag (PPP) [Time] 13.3 s 9.0-12.9 [facility] - Hematology and Cell countsOrdered By: Frank Silva on 07-04-2022 Nucleated RBC/100 WBC (Bld) [Ratio] 0.1 % 0-0.5 [facility] - UrinalysisOrder ed By: Frnak Silva on 07-04-2022 Hyaline casts LM Ql (Urine sed) 0-8 [LPF] 0-8 [facility] Leukocytes [#/volume] in Blo od by Automated countOrdered By: Frank Silva on 07-04-2022 WBC (Bld) [#/Vol] 8.7 10*3/uL 4.5-11.0 [facility] Lymphocytes Auto (Bld) [#/Vo l]Ordered By: Frank Silva on 07-04-2022 Lymphocytes (Bld) [#/Vol] 1.2 10*3/uL 1.00-4.8 [facility] Lymphocytes/100 WBC Auto (Bl d)Ordered By: Frank Silva on 07-04-2022 Lymphocytes/100 WBC (Bld) 14.2 % . [facility] MCH Auto (RBC) [Entitic mass ]Ordered By: Frank Silva on 07-04-2022 MCH (RBC) [Entitic mass] 21.4 pg 24.7-34.3 [facility] MCHC Auto (RBC) [Mass/Vol]Or dered By: Frank Silva on 07-04-2022 MCHC (RBC) [Mass/Vol] 30.4 g/dL 32.0-35.0 [facility] MCV Auto (RBC) [Entitic vol] Ordered By: Frank Silva on 07-04-2022 MCV (RBC) [Entitic vol] 70.4 fL 80-100 [facility] Monocytes Auto (Bld) [#/Vol] Ordered By: Frank Silva on 07-04-2022 Monocytes (Bld) [#/Vol] 0.4 10*3/uL 0.0-0.8 [facility] Monocytes/100 WBC Auto (Bld) Ordered By: Frank Silva on 07-04-2022 Monocytes/100 WBC (Bld) 5.0 % . [facility] Neutrophils Auto (Bld) [#/Vo l]Ordered By: Frank Silva on 07-04-2022 Neutrophils (Bld) [#/Vol] 6.9 10*3/uL 1.8-7.7 [facility] Neutrophils/100 WBC Auto (Bl d)Ordered By: Frank Silva on 07-04-2022 Neutrophils/100 WBC (Bld) 79.2 % . [facility] Nitrite Test strip Ql (U)Ord ered By: Frank Silva on 07-04-2022 Nitrite Ql (U) Negative Negative [facility] No Panel InformationOrdered By: Frank Silva on 07-04-2022 Estimated GFR () > 60 mL/Min [facility] Comment on above: GFR estimated refere nce range: According to KDOQI guidelines, <60 ml/min/1.73m2 is sufficient to diagnose a patient with chronic kidney disease. Pharmacy Creatinine Clearance (Chem 98.82 [facility] Platelet mean volume Auto (B ld) [Entitic vol]Ordered By: Frank Silva on 07-04-2022 Platelet mean volume (Bld) [Entitic vol] 9.5 fL 6.3-10.7 [facility] Platelet poor plasma interna tional normalized ratio (INR) by coagulation assay (relatOrdered By: Frank Silva on 07-04-2022 INR Coag (PPP) [Relative time] 1.2 {INR} [facility] Comment on above: INR Therapeutic Rang [...] 07-04-2022 Platelets (Bld) [#/Vol] 258 10*3/uL 150-450 [facility] Protein Auto test strip (U) [Mass/Vol]Ordered By: Frank Silva on 07-04-2022 Protein (U) [Mass/Vol] Negative Negative [facility] Protein [Mass/volume] in Ser um or PlasmaOrdered By: Frank Silva on 07-04-2022 Protein [Mass/Vol] 6.9 g/dL 6.1-7.9 [facility] RBC Auto (Bld) [#/Vol]Ordere d By: Frank Silva on 07-04-2022 RBC (Bld) [#/Vol] 4.54 10*6/uL 3.60-5.00 [facility] Serum or plasma alanine keene otransferase measurement without P-5'-P (enzymatic activiOrdered By: Frank Silva on 07-04-2022 ALT No additional P-5'-P [Catalytic activity/Vol] 15 U/L 10-60 [facility] Serum or plasma albumin/glob ulin mass ratioOrdered By: Frank Silva on 07-04-2022 Albumin/Globulin [Mass ratio] 1.1 {ratio} [facility] Serum or plasma alkaline jared sphatase measurement (enzymatic activity/volume)Ordered By: Frank Silva on 07-04-2022 ALP [Catalytic activity/Vol] 50 U/L 32-92 [facility] Serum or plasma anion gap de terminationOrdered By: Frank Silva on 07-04-2022 Anion gap [Moles/Vol] 11.7 mmol/L 6.0-15.0 [facility] Serum or plasma aspartate am inotransferase measurement (enzymatic activity/volume)Ordered By: Frank Silva on 07-04-2022 AST [Catalytic activity/Vol] 14 U/L [facility] Serum or plasma calcium marychuy urement (mass/volume)Ordered By: Frank Silva on 07-04-2022 Calcium [Mass/Vol] 8.9 mg/dL 8.2-10.2 [facility] Serum or plasma chloride nemo surement (moles/volume)Ordered By: Frank Silva on 07-04-2022 Chloride [Moles/Vol] 105 mmol/L 95-114 [facility] Serum or plasma glucose marychuy urement (mass/volume)Ordered By: Frank Silva on 07-04-2022 Glucose [Mass/Vol] 97 mg/dL 70-100 [facility] Comment on above: ADA recommended refe rence rangeRandom Glucose Reference Range is dependent on time and content of last meal. Glucose of more than 200 mg/dL in a nonstressed, ambulatory subject supports the diagnosis of Diabetes Mellitus. Serum or plasma non-glucuron idated bilirubin measurement (mass/volume)Ordered By: Frank Silva on 07-04-2022 Bilirubin.indirect [Mass/Vol] TNP [facility] Comment on above: Test not performed Serum or plasma potassium me asurement (moles/volume)Ordered By: Frank iSlva on 07-04-2022 Potassium [Moles/Vol] 3.7 mmol/L 3.5-5.1 [facility] Serum or plasma sodium measu rement (moles/volume)Ordered By: Frank Silva on 07-04-2022 Sodium [Moles/Vol] 136 mmol/L 136-146 [facility] Serum or plasma total biliru bin measurement (mass/volume)Ordered By: Frank Silva on 07-04-2022 Bilirubin [Mass/Vol] 0.5 mg/dL 0.3-1.2 [facility] Serum or plasma total carbon dioxide measurement (moles/volume)Ordered By: Frank Silva on 07-04-2022 CO2 [Moles/Vol] 23.0 mmol/L 22.0-30.0 [facility] Serum or plasma urea nitroge n measurement (mass/volume)Ordered By: Frank Silva on 07-04-2022 Urea nitrogen [Mass/Vol] 6 mg/dL 06-09 [facility] Specific gravity Auto test s trip (U) [Rel density]Ordered By: Frank Silva on 07-04-2022 Specific gravity (U) [Rel density] 1.010 1.001-1.03 0 [facility] Squamous epithelial cells de tection in urine sediment by light microscopyOrdered By: Frank Silva on 07-04-2022 Epithelial cells.squamous LM Ql (Urine sed) 0-1 [HPF] 0-2 [facility] Urine bacteria detection by automated methodOrdered By: Frank Silva on 07-04-2022 Bacteria Auto Ql (U) None seen None Seen [facility] Urine clarity by refractomet ry automatedOrdered By: Frank Silva on 07-04-2022 Clarity Refractometry automated (U) Clear Clear [facility] Urine glucose measurement by automated test strip (mass/volume)Ordered By: Frank Silva on 07-04-2022 Glucose Auto test strip (U) [Mass/Vol] Normal mg/dL Normal [facility] Urine hemoglobin detection b y automated test stripOrdered By: Frank Silva on 07-04-2022 Hemoglobin Auto test strip Ql (U) Trace Negative [facility] Urine leukocyte esterase det ection by automated test stripOrdered By: Frank Silva on 07-04-2022 Leukocyte esterase Auto test strip Ql (U) 1+ Negative [facility] Urobilinogen Auto test strip (U) [Mass/Vol]Ordered By: Frank Silva on 07-04-2022 Urobilinogen (U) [Mass/Vol] Normal mg/dL Normal [facility] pH Auto test strip (U)Ordere d By: Frank Silva on 07-04-2022 pH (U) 6.5 [pH] 5.0-9.0 [facility] Activated partial thrombopla stin time (aPTT) in platelet poor plasma by coagulation aOrdered By: Marvin Serrano on 06-01-2022 aPTT Coag (PPP) [Time] 30.4 s 25.1-36.5 [facility] Basophils Auto (Bld) [#/Vol] Ordered By: Marvin Serrano on 06-01-2022 Basophils (Bld) [#/Vol] 0.1 10*3/uL 0.0-0.2 [facility] Basophils/100 WBC Auto (Bld) Ordered By: Marvin Serrano on 06-01-2022 Basophils/100 WBC (Bld) 1.1 % . [facility] Bilirubin Test strip Ql (U)O rdered By: Marvin Serrano on 06-01-2022 Bilirubin Ql (U) Negative Negative [facility] Blood hemoglobin measurement (mass/volume)Ordered By: Marvin Serrano on 06-01-2022 Hemoglobin (Bld) [Mass/Vol] 10.1 g/dL 11.8-15.4 [facility] Blood leukocytes automated c ount (number/volume)Ordered By: Marvin Serrano on 06-01-2022 WBC (Bld) [#/Vol] 7.6 10*3/uL 4.5-11.0 [facility] Body fluid albumin measureme nt (mass/volume)Ordered By: Marvin Serrano on 06-01-2022 Albumin (Body fld) [Mass/Vol] 3.7 g/dL 3.2-5.5 [facility] Color Auto (U)Ordered By: Dane Serrano on 06-01-2022 Color (U) Yellow Yellow [facility] Creatinine and Glomerular fi ltration rate.predicted panel (S/P/Bld)Ordered By: Marvin Serrano on 06-01-2022 Creatinine [Mass/Vol] 0.82 mg/dL 0.44-1.03 [facility] Eosinophils Auto (Bld) [#/Vo l]Ordered By: Marvin Serrano on 06-01-2022 Eosinophils (Bld) [#/Vol] 0.2 10*3/uL 0.0-0.45 [facility] Eosinophils/100 WBC Auto (Bl d)Ordered By: Marvin Serrano on 06-01-2022 Eosinophils/100 WBC (Bld) 2.4 % . [facility] Erythrocyte distribution wid th Auto (RBC) [Ratio]Ordered By: Marvin Serrano on 06-01-2022 Erythrocyte distribution width (RBC) [Ratio] 14.3 % 11.9-15.3 [facility] Estimated glomerular filtrat ion rate (GFR) non- AmericanOrdered By: Marvin Serrano on 06-01-2022 GFR/1.73 sq M.predicted among non-blacks MDRD (S/P/Bld) [Vol rate/Area] > 60 mL/Min [facility] Globulin Calc (S) [Mass/Vol] Ordered By: Marvin Serrano on 06-01-2022 Globulin (S) [Mass/Vol] 3.4 g/dL [facility] HCG ( test) IA.rapi d Ql (U)Ordered By: Marvin Serrano on 06-01-2022 HCG ( test) Ql (U) Negative [facility] Hematocrit Auto (Bld) [Volum e fraction]Ordered By: Marvin Serrano on 06-01-2022 Hematocrit (Bld) [Volume fraction] 32.2 % 34.0-46.4 [facility] Ketones Auto test strip (U) [Mass/Vol]Ordered By: Marvin Serrano on 06-01-2022 Ketones (U) [Mass/Vol] Negative Negative Fi [facility] Laboratory - CoagulationOrde red By: Marvin Serrano on 06-01-2022 PT Coag (PPP) [Time] 12.4 s 9.0-12.9 [facility] Laboratory - Hematology and Cell countsOrdered By: Marvin Serrano on 06-01-2022 Nucleated RBC/100 WBC (Bld) [Ratio] 0.1 % 0-0.5 [facility] Lymphocytes Auto (Bld) [#/Vo l]Ordered By: Marvin Serrano on 06-01-2022 Lymphocytes (Bld) [#/Vol] 2.7 10*3/uL 1.00-4.8 [facility] Lymphocytes/100 WBC Auto (Bl d)Ordered By: Marvin Serrano on 06-01-2022 Lymphocytes/100 WBC (Bld) 35.8 % . [facility] MCH Auto (RBC) [Entitic mass ]Ordered By: Marvin Serrano on 06-01-2022 MCH (RBC) [Entitic mass] 22.0 pg 24.7-34.3 [facility] MCHC Auto (RBC) [Mass/Vol]Or dered By: Marvin Serrano on 06-01-2022 MCHC (RBC) [Mass/Vol] 31.3 g/dL 32.0-35.0 [facility] MCV Auto (RBC) [Entitic vol] Ordered By: Marvin Serrano on 06-01-2022 MCV (RBC) [Entitic vol] 70.4 fL 80-100 [facility] Monocytes Auto (Bld) [#/Vol] Ordered By: Marvin Serrano on 06-01-2022 Monocytes (Bld) [#/Vol] 0.5 10*3/uL 0.0-0.8 [facility] Monocytes/100 WBC Auto (Bld) Ordered By: Marvin Serrano on 06-01-2022 Monocytes/100 WBC (Bld) 7.1 % . [facility] Neutrophils Auto (Bld) [#/Vo l]Ordered By: Marvin Serrano on 06-01-2022 Neutrophils (Bld) [#/Vol] 4.1 10*3/uL 1.8-7.7 [facility] Neutrophils/100 WBC Auto (Bl d)Ordered By: Marvin Serrano on 06-01-2022 Neutrophils/100 WBC (Bld) 53.6 % . [facility] Nitrite Test strip Ql (U)Ord ered By: Marvin Serrano on 06-01-2022 Nitrite Ql (U) Negative Negative [facility] No Panel InformationOrdered By: Marvin Serrano on 06-01-2022 Estimated GFR () > 60 mL/Min [facility] Comment on above: GFR estimated refere nce range: According to KDOQI guidelines, <60 ml/min/1.73m2 is sufficient to diagnose a patient with chronic kidney disease. Pharmacy Creatinine Clearance (Chem 97.22 [facility] Platelet mean volume Auto (B ld) [Entitic vol]Ordered By: Marvin Serrano on 06-01-2022 Platelet mean volume (Bld) [Entitic vol] 9.9 fL 6.3-10.7 [facility] Platelet poor plasma interna tional normalized ratio (INR) by coagulation assay (relatOrdered By: Marvin Serrano on 06-01-2022 INR Coag (PPP) [Relative time] 1.1 {INR} [facility] Comment on above: INR Therapeutic Rang [...] 06-01-2022 Platelets (Bld) [#/Vol] 218 10*3/uL 150-450 [facility] Protein Auto test strip (U) [Mass/Vol]Ordered By: Marvin Serrano on 06-01-2022 Protein (U) [Mass/Vol] Negative Negative [facility] Protein [Mass/volume] in Ser um or PlasmaOrdered By: Marvin Serrano on 06-01-2022 Protein [Mass/Vol] 7.1 g/dL 6.1-7.9 [facility] RBC Auto (Bld) [#/Vol]Ordere d By: Marvin Serrano on 06-01-2022 RBC (Bld) [#/Vol] 4.57 10*6/uL 3.60-5.00 [facility] Serum or plasma alanine keene otransferase measurement without P-5'-P (enzymatic activiOrdered By: Marvin Serrano on 06-01-2022 ALT No additional P-5'-P [Catalytic activity/Vol] 12 U/L 10-60 [facility] Serum or plasma albumin/glob ulin mass ratioOrdered By: Marvin Serrano on 06-01-2022 Albumin/Globulin [Mass ratio] 1.1 {ratio} [facility] Serum or plasma alkaline jared sphatase measurement (enzymatic activity/volume)Ordered By: Marvin Serrano on 06-01-2022 ALP [Catalytic activity/Vol] 46 U/L 32-92 [facility] Serum or plasma anion gap de terminationOrdered By: Marvin Serrano on 06-01-2022 Anion gap [Moles/Vol] 15.3 mmol/L 6.0-15.0 [facility] Serum or plasma aspartate am inotransferase measurement (enzymatic activity/volume)Ordered By: Marvin Serrano on 06-01-2022 AST [Catalytic activity/Vol] 13 U/L 10-42 [facility] Serum or plasma calcium marychuy urement (mass/volume)Ordered By: Marvin Serrano on 06-01-2022 Calcium [Mass/Vol] 9.1 mg/dL 8.2-10.2 [facility] Serum or plasma chloride nemo surement (moles/volume)Ordered By: Marvin Serrano on 06-01-2022 Chloride [Moles/Vol] 103 mmol/L 95-114 [facility] Serum or plasma glucose marychuy urement (mass/volume)Ordered By: Marvin Serrano on 06-01-2022 Glucose [Mass/Vol] 113 mg/dL 70-100 [facility] Comment on above: ADA recommended refe rence [...] on 06-01-2022 Potassium [Moles/Vol] 3.0 mmol/L 3.5-5.1 [facility] Serum or plasma sodium measu rement (moles/volume)Ordered By: Marvin Serrano on 06-01-2022 Sodium [Moles/Vol] 137 mmol/L 136-146 [facility] Serum or plasma total biliru bin measurement (mass/volume)Ordered By: Marvin Serrano on 06-01-2022 Bilirubin [Mass/Vol] 0.4 mg/dL 0.3-1.2 [facility] Serum or plasma total carbon dioxide measurement (moles/volume)Ordered By: Marvin Serrano on 06-01-2022 CO2 [Moles/Vol] 21.7 mmol/L 22.0-30.0 [facility] Serum or plasma urea nitroge n measurement (mass/volume)Ordered By: Marvin Serrano on 06-01-2022 Urea nitrogen [Mass/Vol] 11 mg/dL 9-23 [facility] Specific gravity Auto test s trip (U) [Rel density]Ordered By: Marvin Serrano on 06-01-2022 Specific gravity (U) [Rel density] 1.003 1.001-1.03 0 [facility] Urine clarity by refractomet ry automatedOrdered By: Marvin Serrano on 06-01-2022 Clarity Refractometry automated (U) Clear Clear [facility] Urine glucose measurement by automated test strip (mass/volume)Ordered By: Marvin Serrano on 06-01-2022 Glucose Auto test strip (U) [Mass/Vol] Normal mg/dL Normal [facility] Urine hemoglobin detection b y automated test stripOrdered By: Marvin Serrano on 06-01-2022 Hemoglobin Auto test strip Ql (U) Negative Negative [facility] Urine leukocyte esterase det ection by automated test stripOrdered By: Marvin Serrano on 06-01-2022 Leukocyte esterase Auto test strip Ql (U) Negative Negative [facility] Urobilinogen Auto test strip (U) [Mass/Vol]Ordered By: Marvin Serrano on 06-01-2022 Urobilinogen (U) [Mass/Vol] Normal mg/dL Normal [facility] pH Auto test strip (U)Ordere d By: Marvin Serrano on 06-01-2022 pH (U) 7.0 [pH] 5.0-9.0 [facility] Office Visit (Oncology Surge ry)on 04-21-2022 [...] need for her to return to her [employer] Dr. Pendleton for discussion of ongoing treatment. [...] hoursAbdominal wall (more content not included)... Normal [facility] ABD/PELV W CONon 04-19-20 CT [...] by: Lenny TANNER Date: 2022-04-18 23:01 Normal [facility] ER URINE PROFILEon 2 Bilirubin Ql (U) Negative Normal NEGATIVE [facility] Comment on above: Performed By: #### U MICRO, PREGU, ERUR #### [facility] [address] [place] [address] Dr. Adam Mejía Clarity (U) CLEAR Normal CLEAR [facility] Comment on above: Performed By: #### U MICRO, PREGU, ERUR #### [facility] [address] [address] [address] Adam Mejía Color (U) YELLOW Normal YELLOW [facility] Comment on above: Performed By: #### U MICRO, PREGU, ERUR #### [facility] [address] [address] [address] Adam Mejía ERUSAGRARIO A micrscopic examina tion will be performed if indicated. Normal [facility] Comment on above: Performed By: #### U MICRO, PREGU, ERUR #### [facility] [address] [address] [address] Adam Mejía Glucose Ql (U) Negative Normal NEGATIVE [facility] Comment on above: Performed By: #### U MICRO, PREGU, ERUR #### [facility] [address] [address] [address] Adam Mejía Hemoglobin Ql (U) SMALL Abnormal NEGATIVE [facility] Comment on above: Performed By: #### U MICRO, PREGU, ERUR #### [facility] [address] [place] [address] Dr. Adam Mejía Ketones Ql (U) >=80 Abnormal NEGATIVE [facility] Comment on above: Performed By: #### U MICRO, PREGU, ERUR #### [facility] [address] [place] [address] Dr. Adam Mejía LEUKOCYTES Negative Normal NEGATIVE [facility] Comment on above: Performed By: #### U MICRO, PREGU, ERUR #### [facility] [address] [place] [address] Dr. Adam Mejía Nitrite Ql (U) Negative Normal NEGATIVE [facility] Comment on above: Performed By: #### U MICRO, PREGU, ERUR #### [facility] [address] [place] [address] Dr. Adam Mejía pH (U) 6.5 [pH] Normal 5-9 [facility] Comment on above: Performed By: #### U MICRO, PREGU, ERUR #### [facility] [address] [place] [address] Dr. Adam Mejía SPEC GRAVITY 1.015 Normal 1.005-<=1. 025 [facility] Comment on above: Performed By: #### U MICRO, PREGU, ERUR #### [facility] [address] [place] [address] Dr. Adam Mejía UA PROTEIN Negative Normal NEGATIVE/ TRACE [facility] Comment on above: Performed By: #### U MICRO, PREGU, ERUR #### [facility] [address] [place] [address] Dr. Adam Mejía UR MICRO IND INDICATED Normal [facility] Comment on above: Performed By: #### U MICRO, PREGU, ERUR #### [facility] [address] [place] [address] Dr. Adam Mejía Urobilinogen Qn (U) 0.2 {Brinda'U}/dL Normal 0.2 - 1. 0 [facility] Comment on above: Performed By: #### U MICRO, PREGU, ERUR #### [facility] [address] [address] [address] Adam Mejía URon 04-18-2022 , QUAL Negative Normal NEGATIVE [facility] Comment on above: Performed By: #### U MICRO, PREGU, ERUR #### [facility] [address] [address] [address] Adam Mejía URINE MICROSCOPIC ONLYon BACTERIA TRACE Abnormal NONE SEEN [facility] Comment on above: Performed By: #### U MICRO, PREGU, ERUR #### [facility] [address] [place] [address] Dr. Adam Mejía Bacteria identified Cx Nom (U) NOT INDICATED Normal [facility] Comment on above: Performed By: #### U MICRO, PREGU, ERUR #### [facility] [address] [place] [address] Dr. Adam Mejía CAST NONE SEEN Normal NONE SEEN [facility] Comment on above: Performed By: #### U MICRO, PREGU, ERUR #### [facility] [address] [place] [address] Dr. Adam Mejía Crystals LM Nom (Urine sed) NONE SEEN Normal NONE SEEN [facility] Comment on above: Performed By: #### U MICRO, PREGU, ERUR #### [facility] [address] [place] [address] Dr. Adam Mejía Epithelial cells LM Ql (Urine sed) FEW Abnormal NONE SEEN /RARE [facility] Comment on above: Performed By: #### U MICRO, PREGU, ERUR #### [facility] [address] [place] [address] Dr. Adam Mejía MUCOUS NONE SEEN Normal NONE SEEN [facility] Comment on above: Performed By: #### U MICRO, PREGU, ERUR #### [facility] [address] [place] [address] Dr. Adam Mejía RBC 0-2 Normal 0-2 [facility] Comment on above: Performed By: #### U MICRO, PREGU, ERUR #### [facility] [address] [address] [address] Adam Mejía WBC 0-2 Abnormal NONE SEEN [facility] Comment on above: Performed By: #### U MICRO, PREGU, ERUR #### [facility] [address] [address] [address] Adam Mejía Body fluid albumin measureme nt (mass/volume)Ordered By: Yudelka Lopez on 04-14-2022 Albumin (Body fld) [Mass/Vol] 3.9 g/dL 3.2-5.5 [facility] Creatinine and Glomerular fi ltration rate.predicted panel (S/P/Bld)Ordered By: Yudelka Lopez on 04-14-2022 Creatinine [Mass/Vol] 0.77 mg/dL 0.44-1.03 [facility] Estimated glomerular filtrat ion rate (GFR) non- AmericanOrdered By: Yudelka Lopez on 04-14-2022 GFR/1.73 sq M.predicted among non-blacks MDRD (S/P/Bld) [Vol rate/Area] > 60 mL/Min [facility] Globulin Calc (S) [Mass/Vol] Ordered By: Yudelka Lopez on 04-14-2022 Globulin (S) [Mass/Vol] 3.0 g/dL [facility] No Panel InformationOrdered By: Yudelka Lopez on 04-14-2022 Estimated GFR () > 60 mL/Min [facility] Comment on above: GFR estimated refere nce range: According to KDOQI guidelines, <60 ml/min/1.73m2 is sufficient to diagnose a patient with chronic kidney disease. Pharmacy Creatinine Clearance (Chem N/A [facility] Protein [Mass/volume] in Ser um or PlasmaOrdered By: Yudelka Lopez on 04-14-2022 Protein [Mass/Vol] 6.9 g/dL 6.1-7.9 [facility] Serum or plasma alanine keene otransferase measurement without P-5'-P (enzymatic activiOrdered By: Yudelka Lopez on 04-14-2022 ALT No additional P-5'-P [Catalytic activity/Vol] 13 U/L 10-60 [facility] Serum or plasma albumin/glob ulin mass ratioOrdered By: Yudelka Lopez on 04-14-2022 Albumin/Globulin [Mass ratio] 1.3 {ratio} [facility] Serum or plasma alkaline jared sphatase measurement (enzymatic activity/volume)Ordered By: Yudelka Lopez on 04-14-2022 ALP [Catalytic activity/Vol] 44 U/L 32-92 [facility] Serum or plasma aspartate am inotransferase measurement (enzymatic activity/volume)Ordered By: Yudelka Lopez on 04-14-2022 AST [Catalytic activity/Vol] 14 U/L 10-42 [facility] Serum or plasma calcium marychuy urement (mass/volume)Ordered By: Yudelka Lopez on 04-14-2022 Calcium [Mass/Vol] 9.5 mg/dL 8.2-10.2 [facility] Serum or plasma chloride nemo surement (moles/volume)Ordered By: Yudelka Lopez on 04-14-2022 Chloride [Moles/Vol] 104 mmol/L 95-114 [facility] Serum or plasma glucose marychuy urement (mass/volume)Ordered By: Yudelka Lopez on 04-14-2022 Glucose [Mass/Vol] 85 mg/dL 70-100 [facility] Comment on above: ADA recommended refe rence [...] on 04-14-2022 Potassium [Moles/Vol] 4.2 mmol/L 3.5-5.1 [facility] Serum or plasma sodium measu rement (moles/volume)Ordered By: Yudelka Lopez on 04-14-2022 Sodium [Moles/Vol] 136 mmol/L 136-146 [facility] Serum or plasma total biliru bin measurement (mass/volume)Ordered By: Yudelka Lopez on 04-14-2022 Bilirubin [Mass/Vol] 0.2 mg/dL 0.3-1.2 [facility] Serum or plasma total carbon dioxide measurement (moles/volume)Ordered By: Yudelka Lopez on 04-14-2022 CO2 [Moles/Vol] 24.5 mmol/L 22.0-30.0 [facility] Serum or plasma urea nitroge n measurement (mass/volume)Ordered By: Yudelka Lopez on 04-14-2022 Urea nitrogen [Mass/Vol] 6 mg/dL 9- [facility] AMYLASEon 04-11-2022 Amylase [Catalytic activity/Vol] 54 U/L Normal 25-115 [facility] Comment on above: Performed By: #### A MY, CMP, LIPA #### [facility] [address] [place] [address] Dr. Adam Mejía CBC AUTO DIFFon 04-11-2022 BASO # 0.0 103/ul Normal 0.0-0.1 [facility] Comment on above: Performed By: #### C BC #### [facility] [address] [address] [address] Adam Mejía Basophils/100 WBC (Bld) 0.2 % Normal 0.2-2.0 [facility] Comment on above: Performed By: #### C BC #### [facility] [address] [place] [address] Dr. Adam Mejía EO # 0.1 103/ul Normal 0.0-0.7 [facility] Comment on above: Performed By: #### C BC #### [facility] [address] [address] [address] Adam Mejía Eosinophils/100 WBC (Bld) 0.6 % Critically low 0.9-7.0 [facility] Comment on above: Performed By: #### C BC #### [facility] [address] [place] [address] Dr. Adam Mejía Erythrocyte distribution width (RBC) [Ratio] 13.9 % Normal 11.0-15.0 [facility] Comment on above: Performed By: #### C BC #### [facility] [address] [place] [address] Dr. Adam Mejía Hematocrit (Bld) [Volume fraction] 31.4 % Critically low 36.0-48.0 [facility] Comment on above: Performed By: #### C BC #### [facility] [address] [place] [address] Dr. Adam Mejía Hemoglobin (Bld) [Mass/Vol] 9.8 g/dL Critically low 12.0-16.0 [facility] Comment on above: Performed By: #### C BC #### [facility] [address] [place] [address] Dr. Adam Mejía IG # 0.03 10e3/ul Normal 0.00-0.03 [facility] Comment on above: Performed By: #### C BC #### [facility] [address] [place] [address] Dr. Adam Mejía IG % 0.3 % Normal 0.0-0.5 [facility] Comment on above: Performed By: #### C BC #### [facility] [address] [place] [address] Dr. Adam Mejía LYMPH # 1.1 103/ul Critically low 1.2-3.8 [facility] Comment on above: Performed By: #### C BC #### [facility] [address] [place] [address] Dr. Adam Mejía Lymphocytes/100 WBC (Bld) 9.3 % Critically low 20.5-60.0 [facility] Comment on above: Performed By: #### C BC #### [facility] [address] [place] [address] Dr. Adam Mejía MANUAL DIFF REQ NO Normal [facility] Comment on above: Performed By: #### C BC #### [facility] [address] [place] [address] Dr. Adam Mejía MCH (RBC) [Entitic mass] 22.5 pg Critically low 26.7-34.0 [facility] Comment on above: Performed By: #### C BC #### [facility] [address] [address] [address] Adam Mejía MCHC (RBC) [Mass/Vol] 31.2 g/dL Normal 29.9-35.2 [facility] Comment on above: Performed By: #### C BC #### [facility] [address] [address] [address] Adam Mejía MCV (RBC) [Entitic vol] 72.0 fL Critically low 81.0-99.0 [facility] Comment on above: Performed By: #### C BC #### [facility] [address] [address] [address] Adam Mejía MONO # 0.6 103/ul Normal 0.3-0.8 [facility] Comment on above: Performed By: #### C BC #### [facility] [address] [place] [address] Dr. Adam Mejía Monocytes/100 WBC (Bld) 4.6 % Normal 1.7-12.0 [facility] Comment on above: Performed By: #### C BC #### [facility] [address] [place] [address] Dr. Adam Mejía NEUT # 10.2 103/ul Critically high 1.4-6.5 [facility] Comment on above: Performed By: #### C BC #### [facility] [address] [place] [address] Dr. Adam Mejía Neutrophils/100 WBC (Bld) 85.0 % Critically high 43.0-75.0 [facility] Comment on above: Performed By: #### C BC #### [facility] [address] [place] [address] Dr. Adam Mejía Platelet mean volume (Bld) [Entitic vol] 12.1 fL Normal 9.5-13.5 [facility] Comment on above: Performed By: #### C BC #### [facility] [address] [place] [address] Dr. Adam Mejía PLT 270 103/ul Normal 150-450 [facility] Comment on above: Performed By: #### C BC #### [facility] [address] [address] [address] Adam Mejía RBC 4.36 106/ul Normal 4.20-5.40 [facility] Comment on above: Performed By: #### C BC #### [facility] [address] [address] [address] Adam Mejía WBC 12.0 103/ul Critically high 4.0-11.0 [facility] Comment on above: Performed By: #### C BC #### [facility] [id number] Adam Mejía CT ABD/PELV W CONon [...] NADIA MORROW Date: 2022-04-11 07:25 Normal [facility] LIPASEon 04-11-2022 Lipase [Catalytic activity/Vol] 152.0 U/L Normal 73.0-393.0 [facility] Comment on above: Performed By: #### A MY, CMP, LIPA #### [facility] [address] [address] [address] Adam Mejía PREG HCG QUALon 04-11-2022 , QUAL Negative Normal NEGATIVE [facility] Comment on above: Performed By: #### U MICRO, PREGU, ERUR #### [facility] [address] [address] [address] Adam Mejía PROF 14(COMP METB)on 022 Albumin [Mass/Vol] 3.8 g/dL Normal 3.4-5.0 [facility] Comment on above: Performed By: #### U MICRO, PREGU, ERUR #### [facility] [address] [address] [address] Adam Mejía Albumin/Globulin [Mass ratio] 0.9 {ratio} Normal [facility] Comment on above: Performed By: #### U MICRO, PREGU, ERUR #### [facility] [address] [address] [address] Adam Mejía ALP [Catalytic activity/Vol] 51 U/L Normal 46-116 [facility] Comment on above: Performed By: #### U MICRO, PREGU, ERUR #### [facility] [address] [address] [address] Adam Mejía ALT [Catalytic activity/Vol] 11 U/L Critically low 14-59 [facility] Comment on above: Performed By: #### U MICRO, PREGU, ERUR #### [facility] [address] [address] [address] Adam Mejía Anion gap [Moles/Vol] 11.9 mmol/L Normal [facility] Comment on above: Performed By: #### U MICRO, PREGU, ERUR #### [facility] [address] [address] [address] Adam Mejía AST [Catalytic activity/Vol] 14 U/L Critically low 15-37 [facility] Comment on above: Performed By: #### U MICRO, PREGU, ERUR #### [facility] [address] [address] [address] Adam Mejía Bilirubin [Mass/Vol] 0.4 mg/dL Normal 0.2-1.0 [facility] Comment on above: Performed By: #### U MICRO, PREGU, ERUR #### [facility] [address] [address] [address] Adam Mejía Calcium [Mass/Vol] 9.4 mg/dL Normal 8.5-10.1 [facility] Comment on above: Performed By: #### U MICRO, PREGU, ERUR #### [facility] [address] [address] [address] Adam Mejía Chloride [Moles/Vol] 104 mmol/L Normal 98-107 [facility] Comment on above: Performed By: #### U MICRO, PREGU, ERUR #### [facility] [address] [place] [address] Dr. Adam Mejía CO2 [Moles/Vol] 26.1 mmol/L Normal 21.0-32.0 [facility] Comment on above: Performed By: #### U MICRO, PREGU, ERUR #### [facility] [address] [address] [address] Adam Mejía Creatinine [Mass/Vol] 0.78 mg/dL Normal 0.55-1.02 [facility] Comment on above: Performed By: #### U MICRO, PREGU, ERUR #### [facility] [address] [address] [address] Adam Mejía EGFR-AF NIUEAN >60 Normal >=60 [facility] Comment on above: Performed By: #### U MICRO, PREGU, ERUR #### [facility] [address] [address] [address] Adam Mejía EGFR-NON AF NIUEAN >60 Normal >=60 [facility] Comment on above: Performed By: #### U MICRO, PREGU, ERUR #### [facility] [address] [place] [address] Dr. Adam Mejía Globulin (S) [Mass/Vol] 4.1 g/dL Normal [facility] Comment on above: Performed By: #### U MICRO, PREGU, ERUR #### [facility] [address] [address] [address] Adam Mejía Glucose [Mass/Vol] 111 mg/dL Critically high 74-106 [facility] Comment on above: Performed By: #### U MICRO, PREGU, ERUR #### [facility] [address] [address] [address] Adam Mejía Potassium [Moles/Vol] 4.0 mmol/L Normal 3.5-5.1 [facility] Comment on above: Performed By: #### U MICRO, PREGU, ERUR #### [facility] [address] [address] [address] Adam Mejía Protein [Mass/Vol] 7.9 g/dL Normal 6.4-8.2 [facility] Comment on above: Performed By: #### U MICRO, PREGU, ERUR #### [facility] [address] [address] [address] Adam Mejía Sodium [Moles/Vol] 138 mmol/L Normal 136-145 [facility] Comment on above: Performed By: #### U MICRO, PREGU, ERUR #### [facility] [address] [address] [address] Adam Mejía Urea nitrogen [Mass/Vol] 10.0 mg/dL Normal 7.0-18.0 [facility] Comment on above: Performed By: #### U MICRO, PREGU, ERUR #### [facility] [address] [address] [address] Adam Mejía Urea nitrogen/Creatinine [Mass ratio] 12.8 mg/mg Normal [facility] Comment on above: Performed By: #### U MICRO, PREGU, ERUR #### [facility] [address] [address] [address] Adam Mejía XR ABD FLAT UP_PA [...] NADIA MORROW Date: 2022-04-11 06:26 Normal [facility] Blood Pressure Cuff Sizeon 0 04-07-2022 Tobacco use status CPHS b[facility] Cuff [facility] Work Phone: Office Visit (Oncology Surge ry)on 04-07-2022 Follow-up visit Diagnoses/Problems Assessed Abdominal wall mass (716.30) (R22.2) Orders Abdominal wall mass Continue: Ondansetron [...] return. The patient will return to her [employer] Dr. Pendleton for discussion of ongoing treatment. [...] aPTT Coag (PPP) [Time] 29.4 s 25.1-36.5 [facility] Albumin [Mass/volume] in Ser um or PlasmaOrdered By: Frank Silva on 04-04-2022 Albumin [Mass/Vol] 3.6 g/dL 3.2-5.5 [facility] Automated erythrocytes count in urine sediment (number/area)Ordered By: Janette Dior on 04-04-2022 RBC Auto (Urine sed) [#/Area] 20-49 [HPF] 0-4 [facility] Automated leukocytes count i n urine sediment (number/area)Ordered By: Janette Dior on 04-04-2022 WBC Auto (Urine sed) [#/Area] 10-19 [HPF] 0-4 [facility] Basophils Auto (Bld) [#/Vol] Ordered By: Frank Silva on 04-04-2022 Basophils (Bld) [#/Vol] 0.0 10*3/uL 0.0-0.2 [facility] Basophils/100 WBC Auto (Bld) Ordered By: Frank Silva on 04-04-2022 Basophils/100 WBC (Bld) 0.4 % . [facility] Bilirubin Test strip Ql (U)O rdered By: Janette Dior on 04-04-2022 Bilirubin Ql (U) Negative Negative [facility] Blood hemoglobin measurement (mass/volume)Ordered By: Frank Silva on 04-04-2022 Hemoglobin (Bld) [Mass/Vol] 10.0 g/dL 11.8-15.4 [facility] Blood leukocytes automated c ount (number/volume)Ordered By: Frank Silva on 04-04-2022 WBC (Bld) [#/Vol] 9.8 10*3/uL 4.5-11.0 [facility] Color Auto (U)Ordered By: Anatoliy Dior on 04-04-2022 Color (U) Yellow Yellow [facility] Creatinine and Glomerular fi ltration rate.predicted panel (S/P/Bld)Ordered By: Frank Silva on 04-04-2022 Creatinine [Mass/Vol] 0.93 mg/dL 0.44-1.03 [facility] Eosinophils Auto (Bld) [#/Vo l]Ordered By: Frank Silva on 04-04-2022 Eosinophils (Bld) [#/Vol] 0.0 10*3/uL 0.0-0.45 [facility] Eosinophils/100 WBC Auto (Bl d)Ordered By: Frank Silva on 04-04-2022 Eosinophils/100 WBC (Bld) 0.3 % . [facility] Erythrocyte distribution wid th Auto (RBC) [Ratio]Ordered By: Frank Silva on 04-04-2022 Erythrocyte distribution width (RBC) [Ratio] 14.1 % 11.9-15.3 [facility] Estimated glomerular filtrat ion rate (GFR) non- AmericanOrdered By: Frank Silva on 04-04-2022 GFR/1.73 sq M.predicted among non-blacks MDRD (S/P/Bld) [Vol rate/Area] > 60 mL/Min [facility] Globulin Calc (S) [Mass/Vol] Ordered By: Frank Silva on 04-04-2022 Globulin (S) [Mass/Vol] 3.1 g/dL [facility] HCG ( test) IA.rapi d Ql (U)Ordered By: Janette Dior on 04-04-2022 HCG ( test) Ql (U) Negative [facility] HCG ( test) IA.rapi d Ql (U)Ordered By: Frank Silva on 04-04-2022 HCG ( test) Ql (U) Negative [facility] Hematocrit Auto (Bld) [Volum e fraction]Ordered By: Frank Silva on 04-04-2022 Hematocrit (Bld) [Volume fraction] 31.9 % 34.0-46.4 [facility] Ketones Auto test strip (U) [Mass/Vol]Ordered By: Janette Dior on 04-04-2022 Ketones (U) [Mass/Vol] 4+ Negative [facility] - Chemistry and C hemistry - challengeOrdered By: Frank Silva on 04-04-2022 Natriuretic peptide B (Bld) [Mass/Vol] 44.0 pg/mL 5-100 [facility] - CoagulationOrde red By: Frank Silva on 04-04-2022 PT Coag (PPP) [Time] 14.0 s 9.0-12.9 [facility] - Hematology and Cell countsOrdered By: Frank Silva on 04-04-2022 Nucleated RBC/100 WBC (Bld) [Ratio] 0.0 % 0-0.5 [facility] - UrinalysisOrder ed By: Janette Dior on 04-04-2022 Hyaline casts LM Ql (Urine sed) 0-8 [LPF] 0-8 [facility] Lymphocytes Auto (Bld) [#/Vo l]Ordered By: Frank Silva on 04-04-2022 Lymphocytes (Bld) [#/Vol] 2.1 10*3/uL 1.00-4.8 [facility] Lymphocytes/100 WBC Auto (Bl d)Ordered By: Frank Silva on 04-04-2022 Lymphocytes/100 WBC (Bld) 21.5 % . [facility] MCH Auto (RBC) [Entitic mass ]Ordered By: Frank Silva on 04-04-2022 MCH (RBC) [Entitic mass] 22.2 pg 24.7-34.3 [facility] MCHC Auto (RBC) [Mass/Vol]Or dered By: Frank Silva on 04-04-2022 MCHC (RBC) [Mass/Vol] 31.2 g/dL 32.0-35.0 [facility] MCV Auto (RBC) [Entitic vol] Ordered By: Frank Silva on 04-04-2022 MCV (RBC) [Entitic vol] 71.2 fL 80-100 [facility] Monocytes Auto (Bld) [#/Vol] Ordered By: Frank Silva on 04-04-2022 Monocytes (Bld) [#/Vol] 0.7 10*3/uL 0.0-0.8 [facility] Monocytes/100 WBC Auto (Bld) Ordered By: Frank Silva on 04-04-2022 Monocytes/100 WBC (Bld) 6.9 % . [facility] Neutrophils Auto (Bld) [#/Vo l]Ordered By: Frank Silva on 04-04-2022 Neutrophils (Bld) [#/Vol] 7.0 10*3/uL 1.8-7.7 [facility] Neutrophils/100 WBC Auto (Bl d)Ordered By: Frank Silva on 04-04-2022 Neutrophils/100 WBC (Bld) 70.9 % . [facility] Nitrite Test strip Ql (U)Ord ered By: Janette Dior on 04-04-2022 Nitrite Ql (U) Negative Negative [facility] No Panel InformationOrdered By: Frank Silva on 04-04-2022 Estimated GFR () > 60 mL/Min [facility] Comment on above: GFR estimated refere nce range: According to KDOQI guidelines, <60 ml/min/1.73m2 is sufficient to diagnose a patient with chronic kidney disease. Pharmacy Creatinine Clearance (Chem 84.97 [facility] Platelet mean volume Auto (B ld) [Entitic vol]Ordered By: Frank Silva on 04-04-2022 Platelet mean volume (Bld) [Entitic vol] 9.6 fL 6.3-10.7 [facility] Platelet poor plasma interna tional normalized ratio (INR) by coagulation assay (relatOrdered By: Frank Silva on 04-04-2022 INR Coag (PPP) [Relative time] 1.2 {INR} [facility] Comment on above: INR Therapeutic Rang [...] 04-04-2022 Platelets (Bld) [#/Vol] 224 10*3/uL 150-450 [facility] Protein Auto test strip (U) [Mass/Vol]Ordered By: Janette Dior on 04-04-2022 Protein (U) [Mass/Vol] Trace mg/dL Negative [facility] Protein [Mass/volume] in Ser um or PlasmaOrdered By: Frank Silva on 04-04-2022 Protein [Mass/Vol] 6.7 g/dL 6.1-7.9 [facility] RBC Auto (Bld) [#/Vol]Ordere d By: Frank Silva on 04-04-2022 RBC (Bld) [#/Vol] 4.49 10*6/uL 3.60-5.00 [facility] Serum or plasma alanine keene otransferase measurement without P-5'-P (enzymatic activiOrdered By: Frank Silva on 04-04-2022 ALT No additional P-5'-P [Catalytic activity/Vol] 15 U/L 10-60 [facility] Serum or plasma albumin/glob ulin mass ratioOrdered By: Frank Silva on 04-04-2022 Albumin/Globulin [Mass ratio] 1.2 {ratio} [facility] Serum or plasma alkaline jared sphatase measurement (enzymatic activity/volume)Ordered By: Frank Silva on 04-04-2022 ALP [Catalytic activity/Vol] 48 U/L 32-92 [facility] Serum or plasma aspartate am inotransferase measurement (enzymatic activity/volume)Ordered By: Frank Silva on 04-04-2022 AST [Catalytic activity/Vol] 15 U/L 10-42 [facility] Serum or plasma calcium marychuy urement (mass/volume)Ordered By: Frank Silva on 04-04-2022 Calcium [Mass/Vol] 9.0 mg/dL 8.2-10.2 [facility] Serum or plasma chloride nemo surement (moles/volume)Ordered By: Frank Silva on 04-04-2022 Chloride [Moles/Vol] 102 mmol/L 95-114 [facility] Serum or plasma glucose marychuy urement (mass/volume)Ordered By: Frank Silva on 04-04-2022 Glucose [Mass/Vol] 92 mg/dL 70-100 [facility] Comment on above: ADA recommended refe rence range Random Glucose Reference Range is dependent on time and content of last meal. Glucose of more than 200 mg/dL in a nonstressed, ambulatory subject supports the diagnosis of Diabetes Mellitus. Serum or plasma potassium me asurement (moles/volume)Ordered By: Frank Silva on 04-04-2022 Potassium [Moles/Vol] 3.1 mmol/L 3.5-5.1 [facility] Serum or plasma sodium measu rement (moles/volume)Ordered By: Frank Silva on 04-04-2022 Sodium [Moles/Vol] 137 mmol/L 136-146 [facility] Serum or plasma total biliru bin measurement (mass/volume)Ordered By: Frank Silva on 04-04-2022 Bilirubin [Mass/Vol] 0.7 mg/dL 0.3-1.2 [facility] Serum or plasma total carbon dioxide measurement (moles/volume)Ordered By: Frank Silva on 04-04-2022 CO2 [Moles/Vol] 23.6 mmol/L 22.0-30.0 [facility] Serum or plasma urea nitroge n measurement (mass/volume)Ordered By: Frank Silva on 04-04-2022 Urea nitrogen [Mass/Vol] 8 mg/dL 06-09 [facility] Specific gravity Auto test s trip (U) [Rel density]Ordered By: Janette Dior on 04-04-2022 Specific gravity (U) [Rel density] 1.027 1.001-1.03 0 [facility] Squamous epithelial cells de tection in urine sediment by light microscopyOrdered By: Janette Dior on 04-04-2022 Epithelial cells.squamous LM Ql (Urine sed) 10-19 [HPF] 0-2 [facility] Troponin I.cardiac [Mass/vol ume] in Serum or Plasma by High sensitivity methodOrdered By: Frank Silva on 04-04-2022 Troponin I.cardiac High sensitivity method [Mass/Vol] 3 pg/mL 0-15 [facility] Urine bacteria detection by automated methodOrdered By: Janette Dior on 04-04-2022 Bacteria Auto Ql (U) None seen None Seen [facility] Urine clarity by refractomet ry automatedOrdered By: Janette Dior on 04-04-2022 Clarity Refractometry automated (U) Cloudy Clear [facility] Urine glucose measurement by automated test strip (mass/volume)Ordered By: Janette Dior on 04-04-2022 Glucose Auto test strip (U) [Mass/Vol] Normal mg/dL Normal [facility] Urine hemoglobin detection b y automated test stripOrdered By: Janette Dior on 04-04-2022 Hemoglobin Auto test strip Ql (U) 2+ Negative [facility] Urine leukocyte esterase det ection by automated test stripOrdered By: Janette Dior on 04-04-2022 Leukocyte esterase Auto test strip Ql (U) Negative Negative [facility] Urine sediment renal epithel ial cell count by microscopy (number/high power field)Ordered By: Janette Dior on 04-04-2022 Epithelial cells.renal LM.HPF (Urine sed) [#/Area] None seen [HPF] 0-1 [facility] Urobilinogen Auto test strip (U) [Mass/Vol]Ordered By: Janette Dior on 04-04-2022 Urobilinogen (U) [Mass/Vol] Normal mg/dL Normal [facility] pH Auto test strip (U)Ordere d By: Janette Dior on 04-04-2022 pH (U) 6.0 [pH] 5.0-9.0 [facility] HCG,URINEon 04-03-2022 Beta HCG ( test) Ql (U) Negative Normal Negative [facility] Comment on above: Order Comment: poct Performed By: #### H CGU #### [facility] [address] [place] [address] No Panel Informationon 04-03 -[facility] Work Phone: Order Reconciliationon 04-03 Order Reconciliation [...] be shared with your follow-up providers (doctor, certified medication aide, physical therapist, etc.). Follow Up with Dr. Crockre in [address] or operate motor vehicles for 24 hours and while taking narcotic pain me (more content not included)... Normal [facility] Surgical Pathology Depar tmenton 04-03-2022 [facility] Surgical Pathology Department Name LEANDRA FONSECA Pathologist: REBECCA LAN MD Date of Procedure: 04/03/2022 Date Received: 04/04/2022 Date Reported 04/17/2022 Submitting Physician: SLY CROCKER MD Location: [facility] Other External # FINAL DIAGNOSIS A. LEFT ABDOMINAL WALL ENDOMETRIOMA: --ENDOMETRIOSIS INVOLVING SUBCUTANEOUS FIBROVASCULAR AND ADIPOSE TISSUES. Electronically Signed Out By REBECCA LAN MD/MRG1 By the signature on this report, the individual or group listed as making the Final Interpretation/Diagnosis certifies that they have reviewed this case. Diagnostic interpretation performed at [address] [address] Clinical History: Physician Contact Number: [phone] Fixative (A): Formalin Clinical Diagnosis History LEFT [...] fibrous cut surfaces admixed with yellow adipose. Supervisor Furnace Room sections are submitted in 10 cassettes. Summary of Cassettes: Specimen Label Site A 1-2 medial tip, full-thickness, bisected 3-4 lateral, full-thickness, bisected 5-7 technical services representative sections of fibrous tissue to closest superior margin 8-10 technical services representative sections of fibrous tissue to closest inferior margin mjr/04/06/2022 [facility] Department of Pathology [id number] [place] [address] Normal [facility] Comment on above: Performed By: #### U [facility] #### [facility] Surgical Pathology Department [address] [place] [address] Urine Teston 04-03 HCG ( test) Ql (U) Negative [facility] Work Phone: COVID-19 Positive/NegativeOr dered By: Sly Crocker on 03-31-2022 SARS-CoV-2 (COVID-19) N gene HIRAM+probe Ql (Resp) Negative Negative [facility] Comment on above: Testing for SARS-CoV -2 by RT-PCR This test was developed and its performance characteristics determined by [employer] ([employer]) and validated at the [facility]. 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 (procedure may be cancelled if no regional company truck driver), insurance information, remove jewerly/piercings How to be AddressedAshley Spoken Language PreferredEnglish Source of Informationpatient Stated Reason for AdmissionLeft abdominal wall tumor resection Primary Contact Name and NumberBoyfriend- Deantrae [phone] Medications Brought to [facility]: Weight in kg75.4 kilogram(s) Weight in tya101.2 pound(s) Weight Methodactual (measured) Scale Typestanding Height [...] child(uriah) Living Arrangementshouse Resource/Environmental Concernsnone [facility]tic[facility]ated at Transition[facility] Tobacco Use: Tobacco Useno Pre-op Checklist: Arrival [id number] Arrival Time11:16 Procedure Typeabdominal wall tumor resection NPOyes Last Food [id number] 21:00 Last Clear Fluid [id number] 21:00 ID Band On Patientpatient ID (name), [...] Updated: 03-Apr-2022 11:57 by Aviva Galvez) Normal [facility] Office Visit (Oncology Surge ry)on 03-24-2022 Follow-up visit Diagnoses/Problems Assessed Abdominal wall mass (379.30) (R22.2) *Orders Abdominal wall mass CORONAVIRUS 2019 RNA BY PCR, SCREEN ASYMPTOMATIC AMBULATORY; Status:Hold For - Specimen/Data Collection,Retrospective By Protocol Authorization; Requested for:[id number]; Abdominal wall mass (9.30) (R22.2) Patient Discussion/Summary Mrs. Fonseca is a [...] with thyroid problems Social history: Lives in [place] with her boyfriend. She has 2 children [...] Kim Isaac; (more content not included)... Normal [facility] Tobacco Screening.on 022 Fall risk assessment a) No falls within the last year [facility] Work Phone: Tobacco use status CPHS b) No [facility] Work Phone: Automated erythrocytes count in urine sediment (number/area)Ordered By: Jim Vega on 03-15-2022 RBC Auto (Urine sed) [#/Area] 5-9 [HPF] 0-4 [facility] Automated leukocytes count i n urine sediment (number/area)Ordered By: Jim Vega on 03-15-2022 WBC Auto (Urine sed) [#/Area] None seen [HPF] 0-4 [facility] Basophils Auto (Bld) [#/Vol] Ordered By: Jim Vega on 03-15-2022 Basophils (Bld) [#/Vol] 0.1 10*3/uL 0.0-0.2 [facility] Basophils/100 WBC Auto (Bld) Ordered By: Jim Vega on 03-15-2022 Basophils/100 WBC (Bld) 0.7 % . [facility] Bilirubin Test strip Ql (U)O rdered By: Jim Vega on 03-15-2022 Bilirubin Ql (U) Negative Negative [facility] Blood hemoglobin measurement (mass/volume)Ordered By: Jim Vega on 03-15-2022 Hemoglobin (Bld) [Mass/Vol] 9.9 g/dL 11.8-15.4 [facility] Blood leukocytes automated c ount (number/volume)Ordered By: Jim Vega on 03-15-2022 WBC (Bld) [#/Vol] 8.3 10*3/uL 4.5-11.0 [facility] Body fluid albumin measureme nt (mass/volume)Ordered By: Jim Vega on 03-15-2022 Albumin (Body fld) [Mass/Vol] 3.7 g/dL 3.2-5.5 [facility] Color Auto (U)Ordered By: Narinder Vega on 03-15-2022 Color (U) Yellow Yellow [facility] Creatinine and Glomerular fi ltration rate.predicted panel (S/P/Bld)Ordered By: Jim Vega on 03-15-2022 Creatinine [Mass/Vol] 0.85 mg/dL 0.44-1.03 [facility] Eosinophils Auto (Bld) [#/Vo l]Ordered By: Jim Vega on 03-15-2022 Eosinophils (Bld) [#/Vol] 0.2 10*3/uL 0.0-0.45 [facility] Eosinophils/100 WBC Auto (Bl d)Ordered By: Jim Vega on 03-15-2022 Eosinophils/100 WBC (Bld) 2.0 % . [facility] Erythrocyte distribution wid th Auto (RBC) [Ratio]Ordered By: Jim Vega on 03-15-2022 Erythrocyte distribution width (RBC) [Ratio] 14.4 % 11.9-15.3 [facility] Estimated glomerular filtrat ion rate (GFR) non- AmericanOrdered By: Jim Vega on 03-15-2022 GFR/1.73 sq M.predicted among non-blacks MDRD (S/P/Bld) [Vol rate/Area] > 60 mL/Min [facility] Globulin Calc (S) [Mass/Vol] Ordered By: Jim Veag on 03-15-2022 Globulin (S) [Mass/Vol] 3.6 g/dL [facility] HCG ( test) IA.rapi d Ql (U)Ordered By: Jim Vega on 03-15-2022 HCG ( test) Ql (U) Negative [facility] Hematocrit Auto (Bld) [Volum e fraction]Ordered By: Jim Vega on 03-15-2022 Hematocrit (Bld) [Volume fraction] 31.8 % 34.0-46.4 [facility] Ketones Auto test strip (U) [Mass/Vol]Ordered By: Jim Vega on 03-15-2022 Ketones (U) [Mass/Vol] Negative Negative [facility] - Chemistry and C hemistry - challengeOrdered By: Jim Vega on 03-15-2022 Lipase [Catalytic activity/Vol] 53.0 U/L 22-51 [facility] Natriuretic peptide B (Bld) [Mass/Vol] 13.0 pg/mL 5-100 [facility] - Hematology and Cell countsOrdered By: Jim Vega on 03-15-2022 Nucleated RBC/100 WBC (Bld) [Ratio] 0.0 % 0-0.5 [facility] - UrinalysisOrder ed By: Jim Vega on 03-15-2022 Hyaline casts LM Ql (Urine sed) None seen [LPF] 0-8 [facility] Lymphocytes Auto (Bld) [#/Vo l]Ordered By: Jim Vega on 03-15-2022 Lymphocytes (Bld) [#/Vol] 1.9 10*3/uL 1.00-4.8 [facility] Lymphocytes/100 WBC Auto (Bl d)Ordered By: Jim Vega on 03-15-2022 Lymphocytes/100 WBC (Bld) 22.9 % . [facility] MCH Auto (RBC) [Entitic mass ]Ordered By: Jim Vega on 03-15-2022 MCH (RBC) [Entitic mass] 22.2 pg 24.7-34.3 [facility] MCHC Auto (RBC) [Mass/Vol]Or dered By: Jim Vega on 03-15-2022 MCHC (RBC) [Mass/Vol] 31.2 g/dL 32.0-35.0 [facility] MCV Auto (RBC) [Entitic vol] Ordered By: Jim Vega on 03-15-2022 MCV (RBC) [Entitic vol] 71.1 fL 80-100 [facility] Monocytes Auto (Bld) [#/Vol] Ordered By: Jim Vega on 03-15-2022 Monocytes (Bld) [#/Vol] 0.6 10*3/uL 0.0-0.8 [facility] Monocytes/100 WBC Auto (Bld) Ordered By: Jim Vega on 03-15-2022 Monocytes/100 WBC (Bld) 6.9 % . [facility] Neutrophils Auto (Bld) [#/Vo l]Ordered By: Jim Vega on 03-15-2022 Neutrophils (Bld) [#/Vol] 5.6 10*3/uL 1.8-7.7 [facility] Neutrophils/100 WBC Auto (Bl d)Ordered By: Jim Vega on 03-15-2022 Neutrophils/100 WBC (Bld) 67.5 % . [facility] Nitrite Test strip Ql (U)Ord ered By: Jim Vega on 03-15-2022 Nitrite Ql (U) Negative Negative [facility] No Panel InformationOrdered By: Jim Vega on 03-15-2022 Estimated GFR () > 60 mL/Min [facility] Comment on above: GFR estimated refere nce range: According to KDOQI guidelines, <60 ml/min/1.73m2 is sufficient to diagnose a patient with chronic kidney disease. Pharmacy Creatinine Clearance (Chem 93.64 [facility] Platelet mean volume Auto (B ld) [Entitic vol]Ordered By: Jim Vega on 03-15-2022 Platelet mean volume (Bld) [Entitic vol] 9.4 fL 6.3-10.7 [facility] Platelets Auto (Bld) [#/Vol] Ordered By: Jim Vega on 03-15-2022 Platelets (Bld) [#/Vol] 254 10*3/uL 150-450 [facility] Protein Auto test strip (U) [Mass/Vol]Ordered By: Jim Vega on 03-15-2022 Protein (U) [Mass/Vol] Negative Negative Fi [facility] Protein [Mass/volume] in Ser um or PlasmaOrdered By: Jim Vega on 03-15-2022 Protein [Mass/Vol] 7.3 g/dL 6.1-7.9 [facility] RBC Auto (Bld) [#/Vol]Ordere d By: Jim Vega on 03-15-2022 RBC (Bld) [#/Vol] 4.47 10*6/uL 3.60-5.00 [facility] Serum or plasma alanine keene otransferase measurement without P-5'-P (enzymatic activiOrdered By: Jim Vega on 03-15-2022 ALT No additional P-5'-P [Catalytic activity/Vol] 14 U/L 10-60 [facility] Serum or plasma albumin/glob ulin mass ratioOrdered By: Jim Vega on 03-15-2022 Albumin/Globulin [Mass ratio] 1.0 {ratio} [facility] Serum or plasma alkaline jared sphatase measurement (enzymatic activity/volume)Ordered By: Jim Vega on 03-15-2022 ALP [Catalytic activity/Vol] 45 U/L 32-92 [facility] Serum or plasma aspartate am inotransferase measurement (enzymatic activity/volume)Ordered By: Jim Vega on 03-15-2022 AST [Catalytic activity/Vol] 17 U/L 10-42 [facility] Serum or plasma calcium marychuy urement (mass/volume)Ordered By: Jim Vega on 03-15-2022 Calcium [Mass/Vol] 9.4 mg/dL 8.2-10.2 [facility] Serum or plasma chloride nemo surement (moles/volume)Ordered By: Jim Vega on 03-15-2022 Chloride [Moles/Vol] 102 mmol/L 95-114 [facility] Serum or plasma glucose marychuy urement (mass/volume)Ordered By: Jim Vega on 03-15-2022 Glucose [Mass/Vol] 85 mg/dL 70-100 [facility] Comment on above: ADA recommended refe rence range Random Glucose Reference Range is dependent on time and content of last meal. Glucose of more than 200 mg/dL in a nonstressed, ambulatory subject supports the diagnosis of Diabetes Mellitus. Serum or plasma potassium me asurement (moles/volume)Ordered By: Jim Vega on 03-15-2022 Potassium [Moles/Vol] 4.2 mmol/L 3.5-5.1 [facility] Serum or plasma sodium measu rement (moles/volume)Ordered By: Jim Vega on 03-15-2022 Sodium [Moles/Vol] 136 mmol/L 136-146 [facility] Serum or plasma total biliru bin measurement (mass/volume)Ordered By: Jim Vega on 03-15-2022 Bilirubin [Mass/Vol] 0.1 mg/dL 0.3-1.2 [facility] Serum or plasma total carbon dioxide measurement (moles/volume)Ordered By: Jim Vega on 03-15-2022 CO2 [Moles/Vol] 26.3 mmol/L 22.0-30.0 [facility] Serum or plasma urea nitroge n measurement (mass/volume)Ordered By: Jim Vega on 03-15-2022 Urea nitrogen [Mass/Vol] 9 mg/dL - [facility] Specific gravity Auto test s trip (U) [Rel density]Ordered By: Jim Vega on 03-15-2022 Specific gravity (U) [Rel density] 1.010 1.001-1.03 0 [facility] Squamous epithelial cells de tection in urine sediment by light microscopyOrdered By: Jim Vega on 03-15-2022 Epithelial cells.squamous LM Ql (Urine sed) 0-1 [HPF] 0-2 [facility] Troponin I.cardiac [Mass/vol ume] in Serum or Plasma by High sensitivity methodOrdered By: Jim Vega on 03-15-2022 Troponin I.cardiac High sensitivity method [Mass/Vol] 3 pg/mL 0-15 [facility] Urine bacteria detection by automated methodOrdered By: Jim Vega on 03-15-2022 Bacteria Auto Ql (U) None seen None Seen [facility] Urine clarity by refractomet ry automatedOrdered By: Jim Vega on 03-15-2022 Clarity Refractometry automated (U) Clear Clear [facility] Urine glucose measurement by automated test strip (mass/volume)Ordered By: Jim Vega on 03-15-2022 Glucose Auto test strip (U) [Mass/Vol] Normal mg/dL Normal [facility] Urine hemoglobin detection b y automated test stripOrdered By: Jim Vega on 03-15-2022 Hemoglobin Auto test strip Ql (U) Trace Negative [facility] Urine leukocyte esterase det ection by automated test stripOrdered By: Jim Vega on 03-15-2022 Leukocyte esterase Auto test strip Ql (U) Negative Negative [facility] Urobilinogen Auto test strip (U) [Mass/Vol]Ordered By: Jim Vega on 03-15-2022 Urobilinogen (U) [Mass/Vol] Normal mg/dL Normal [facility] pH Auto test strip (U)Ordere d By: Jim Vega on 03-15-2022 pH (U) 7.5 [pH] 5.0-9.0 [facility] US FINE NEEDLE ASP EXPon US FINE NEEDLE ASP EXP Begin Addendu m #1 COLLECTED DATE/TIME: 02/20/2022 13:18 EST Final Diagnosis Report for [place], [place] (A/B) MASS NEAR SCAR; FINE NEEDLE [...] (FNA). 2. Pathology results are pending. Normal [facility] US SINGLE QUAD LT LOWERon US [...] sampling is recommended. Electronically authenticated by: KALPESH FWOLER Date: 2022-02-02 09:33 Normal [facility] CT ABD/PELVIS WO CONon 01-11 CT [...] JENN GREWAL Date: 2022-01-11 11:40 Normal [facility] Vital Signs Date Time Vital Sign Value Performing Clinician Facility 07-14-2024 15:03-0400 Diastolic blood pressure 75 mm[Hg] BETTY Lopez Work Phone: [facility] 07-14-2024 15:03-0400 Heart rate 71 /min BETTY Lopez Work Phone: [facility] 07-14-2024 15:03-0400 Respiratory rate 18 /min BETTY Lopez Work Phone: [facility] 07-14-2024 15:03-0400 SaO2% (BldA) [Mass fraction] 99 % BETTY Lopez Work Phone: [facility] 07-14-2024 15:03-0400 Systolic blood pressure 114 mm[Hg] CHARGE ACCOUNT CLERK Yudelka Lopez Work Phone: [facility] 07-14-2024 12:23-0400 Body height 157.48 cm BETTY Lopez Work Phone: [facility] 07-14-2024 12:17-0400 Body height 157.48 cm CHARGE ACCOUNT CLERK Yudelka Lopez Work Phone: [facility] 07-14-2024 12:17-0400 Body temperature 98.4 [degF] CHARGE ACCOUNT CLERK Yudelka Lopez Work Phone: [facility] 07-14-2024 12:17-0400 Body weight 74 kg BETTY Lopez Work Phone: [facility] 07-14-2024 11:43-0400 Body height 157.[address] [facility] 07-14-2024 11:43-0400 Body mass index (BMI) [Ratio] 29 kg/m2 [facility] 07-14-2024 11:43-0400 Body temperature 98.2 [degF] [facility] 07-14-2024 11:43-0400 Body weight 72.[address] [facility] 07-14-2024 11:43-0400 Diastolic blood pressure 76 mm[Hg] [facility] 07-14-2024 11:43-0400 Heart rate 97 /min [facility] 07-14-2024 11:43-0400 SaO2% (BldA) [Mass fraction] 99 % [facility] 07-14-2024 11:43-0400 Systolic blood pressure 114 mm[Hg] [facility] 09-28-2023 14:34-0500 Body weight 73.93 kg CHARGE ACCOUNT CLERK Yudelka Lopez Work Phone: [facility] 09-28-2023 14:34-0500 Diastolic blood pressure 79 mm[Hg] CHARGE ACCOUNT CLERK Yudelka Lopez Work Phone: [facility] 09-28-2023 14:34-0500 Heart rate 66 /min BETTY Lopez Work Phone: [facility] 09-28-2023 14:34-0500 Respiratory rate 20 /min BETTY Lopez Work Phone: [facility] 09-28-2023 14:34-0500 SaO2% (BldA) [Mass fraction] 100 % BETTY Lopez Work Phone: [facility] 09-28-2023 14:34-0500 Systolic blood pressure 119 mm[Hg] BETTY Lopez Work Phone: [facility] 06-27-2023 10:33-0400 Body height 157.48 cm BETTY Lopez Work Phone: [facility] 06-27-2023 10:33-0400 Body temperature 97.7 [degF] BETTY Lopez Work Phone: [facility] 06-27-2023 10:33-0400 Body weight 72.52 kg BETTY Lopez Work Phone: [facility] 06-27-2023 10:33-0400 Diastolic blood pressure 80 mm[Hg] BETTY Lopez Work Phone: [facility] 06-27-2023 10:33-0400 Heart rate 80 /min BETTY Lopez Work Phone: [facility] 06-27-2023 10:33-0400 Respiratory rate 20 /min BETTY Lopez Work Phone: [facility] 06-27-2023 10:33-0400 SaO2% (BldA) [Mass fraction] 100 % BETTY Lopez Work Phone: [facility] 06-27-2023 10:33-0400 Systolic blood pressure 120 mm[Hg] BETTY Lopez Work Phone: [facility] 06-04-2023 18:15-0400 Body height 157.48 cm Marvin Fontenot Other [employer] Other 06-04-2023 18:15-0400 Body mass index (BMI) [Ratio] 30.36 kg/m2 Marvin Fontenot Other [employer] Other 06-04-2023 18:15-0400 Body temperature 98.5 [degF] Marvin Fontenot Other [employer] Other 06-04-2023 18:15-0400 Body weight 75.3 kg Marvin Fontenot Other [employer] Other 06-04-2023 18:15-0400 Respiratory rate 20 /min Marvin Fontenot Other [employer] Other 06-04-2023 18:15-0400 SaO2% (BldA) [Mass fraction] 98 % Marvin Fontenot Other [employer] Other 03-21-2023 15:04-0400 Body weight 73.16 kg CHARGE ACCOUNT CLERK Yudelka Lopez Work Phone: [facility] 03-21-2023 15:04-0400 Diastolic blood pressure 74 mm[Hg] CHARGE ACCOUNT CLERK Yudelka Lopez Work Phone: [facility] 03-21-2023 15:04-0400 Heart rate 109 /min CHARGE ACCOUNT CLERKFamilia Lopez Work Phone: [facility] 03-21-2023 15:04-0400 Respiratory rate 20 /min CHARGE ACCOUNT CLERK Yudelka Lopez Work Phone: [facility] 03-21-2023 15:04-0400 SaO2% (BldA) [Mass fraction] 99 % CHARGE ACCOUNT CLERK Yudelka Lopez Work Phone: [facility] 03-21-2023 15:04-0400 Systolic blood pressure 134 mm[Hg] BETTY Lopez Work Phone: [facility] 02-07-2023 10:42-0400 Diastolic blood pressure 70 mm[Hg] CHARGE ACCOUNT CLERK Yudelka Lopez Work Phone: [facility] 02-07-2023 10:42-0400 Heart rate 82 /min CHARGE ACCOUNT CLERK Yudelka Lopez Work Phone: [facility] 02-07-2023 10:42-0400 Respiratory rate 18 /min CHARGE ACCOUNT CLERK Yudelka Lopez Work Phone: [facility] 02-07-2023 10:42-0400 SaO2% (BldA) [Mass fraction] 97 % CHARGE ACCOUNT CLERK Yudelka Lopez Work Phone: [facility] 02-07-2023 10:42-0400 Systolic blood pressure 118 mm[Hg] CHARGE ACCOUNT CLERK Yudelka Lopez Work Phone: [facility] 02-07-2023 08:15-0400 Body temperature 98 [degF] CHARGE ACCOUNT CLERK Yudelka Lopez Work Phone: [facility] 02-06-2023 10:57-0400 Diastolic blood pressure 54 mm[Hg] CHARGE ACCOUNT CLERK Yudelka Lopez Work Phone: [facility] 02-06-2023 10:57-0400 Heart rate 66 /min CHARGE ACCOUNT CLERK Yudelka John Work Phone: [facility] 02-06-2023 10:57-0400 Respiratory rate 18 /min CHARGE ACCOUNT CLERK Yudelka Lopez Work Phone: [facility] 02-06-2023 10:57-0400 SaO2% (BldA) [Mass fraction] 99 % CHARGE ACCOUNT CLERK Yudelka Lopez Work Phone: [facility] 02-06-2023 10:57-0400 Systolic blood pressure 113 mm[Hg] CHARGE ACCOUNT CLERK Yudelka Lopez Work Phone: [facility] 02-06-2023 09:14-0400 Body height 160.02 cm CHARGE ACCOUNT CLERK Yudelka Lopez Work Phone: [facility] 02-06-2023 09:14-0400 Body temperature 98.1 [degF] CHARGE ACCOUNT CLERK Yudelka John Work Phone: [facility] 02-06-2023 09:14-0400 Body weight 73 kg BETTY Lopez Work Phone: [facility] 01-25-2023 12:38-0400 Diastolic blood pressure 74 mm[Hg] BETTY Lopez Work Phone: [facility] 01-25-2023 12:38-0400 Heart rate 72 /min BETTY Lopez Work Phone: [facility] 01-25-2023 12:38-0400 Respiratory rate 18 /min BETTY Lopez Work Phone: [facility] 01-25-2023 12:38-0400 SaO2% (BldA) [Mass fraction] 100 % BETTY Lopez Work Phone: [facility] 01-25-2023 12:38-0400 Systolic blood pressure 101 mm[Hg] BETTY Lopez Work Phone: [facility] 01-25-2023 08:19-0400 Body temperature 98.3 [degF] BETTY Lopez Work Phone: [facility] 01-02-2023 10:31-0400 Body weight 75.2 kg BETTY Lopez Work Phone: [facility] 12-21-2022 10:00-0400 Body height 157.48 cm Imad Asaad Other [facility] [employer] Other 12-21-2022 10:00-0400 Body mass index (BMI) [Ratio] 30.36 kg/m2 Imad Asaad Other [employer] Other 12-21-2022 10:00-0400 Body weight 75.3 kg Imad Asaad Other [place] [employer] Other 12-21-2022 10:00-0400 Diastolic blood pressure 68 mm[Hg] Imad Asaad Other [facility] [employer] Other 12-21-2022 10:00-0400 Systolic blood pressure 115 mm[Hg] Imad Asaad Other [facility] [employer] Other 11-28-2022 20:38-0400 Body height 157.48 cm CHARGE ACCOUNT CLERK Yudelka Lopez Work Phone: [facility] 11-28-2022 20:38-0400 Body temperature 97.9 [degF] CHARGE ACCOUNT CLERK Yudelka Lopez Work Phone: [facility] 11-28-2022 20:38-0400 Body weight 75.2 kg CHARGE ACCOUNT CLERK Yudelka Lopez Work Phone: [facility] 11-28-2022 20:38-0400 Diastolic blood pressure 72 mm[Hg] CHARGE ACCOUNT CLERK Yudelka Lopez Work Phone: [facility] 11-28-2022 20:38-0400 Heart rate 78 /min CHARGE ACCOUNT CLERK Yudelka Lopez Work Phone: [facility] 11-28-2022 20:38-0400 Respiratory rate 18 /min CHARGE ACCOUNT CLERK Yudelka Lopez Work Phone: [facility] 11-28-2022 20:38-0400 SaO2% (BldA) [Mass fraction] 100 % CHARGE ACCOUNT CLERK Yudelka Lopez Work Phone: [facility] 11-28-2022 20:38-0400 Systolic blood pressure 140 mm[Hg] CHARGE ACCOUNT CLERK Yudelka Lopez Work Phone: [facility] 11-01-2022 12:30-0500 Diastolic blood pressure 66 mm[Hg] CHARGE ACCOUNT CLERK Yudelka Lopez Work Phone: [facility] 11-01-2022 12:30-0500 Heart rate 60 /min CHARGE ACCOUNT CLERK Yudelka Lopez Work Phone: [facility] 11-01-2022 12:30-0500 Respiratory rate 18 /min CHARGE ACCOUNT CLERK Yudelka Lopez Work Phone: [facility] 11-01-2022 12:30-0500 SaO2% (BldA) [Mass fraction] 100 % CHARGE ACCOUNT CLERK Yudelka Lopez Work Phone: [facility] 11-01-2022 12:30-0500 Systolic blood pressure 108 mm[Hg] CHARGE ACCOUNT CLERK Yudelka Lopez Work Phone: [facility] 11-01-2022 10:17-0500 Body temperature 98.9 [degF] CHARGE ACCOUNT CLERK Yudelka Lopez Work Phone: [facility] 10-10-2022 15:05-0500 Diastolic blood pressure 62 mm[Hg] CHARGE ACCOUNT CLERK Yudelka Lopez Work Phone: [facility] 10-10-2022 15:05-0500 Heart rate 68 /min CHARGE ACCOUNT CLERK Yudelka Lopez Work Phone: [facility] 10-10-2022 15:05-0500 Respiratory rate 16 /min CHARGE ACCOUNT CLERK Yudelka Lopez Work Phone: [facility] 10-10-2022 15:05-0500 Systolic blood pressure 111 mm[Hg] CHARGE ACCOUNT CLERK Yudelka Lopez Work Phone: [facility] 10-10-2022 13:05-0500 Body temperature 98.3 [degF] CHARGE ACCOUNT CLERK Yudelka Lopez Work Phone: [facility] 10-10-2022 13:05-0500 SaO2% (BldA) [Mass fraction] 100 % CHARGE ACCOUNT CLERK Yudelka Lopez Work Phone: [facility] 10-03-2022 10:46-0500 Body weight 72.41 kg CHARGE ACCOUNT CLERK Yudelka Lopez Work Phone: [facility] 10-03-2022 10:33-0500 Body height 157.48 cm CHARGE ACCOUNT CLERK Yudelka Lopez Work Phone: [facility] 09-21-2022 14:02-0500 Diastolic blood pressure 54 mm[Hg] CHARGE ACCOUNT CLERK Yudelka Lopez Work Phone: [facility] 01-05-2023 14:02-0500 Heart rate 72 /min CHARGE ACCOUNT CLERK Yudelka Lopez Work Phone: [facility] 09-21-2022 14:02-0500 Respiratory rate 18 /min CHARGE ACCOUNT CLERK Yudelka Lopez Work Phone: [facility] 09-21-2022 14:02-0500 SaO2% (BldA) [Mass fraction] 100 % CHARGE ACCOUNT CLERK Yudelka Lopez Work Phone: [facility] 09-21-2022 14:02-0500 Systolic blood pressure 105 mm[Hg] CHARGE ACCOUNT CLERK Yudelka oLpez Work Phone: [facility] 09-21-2022 12:05-0500 Body height 157.48 cm CHARGE ACCOUNT CLERK Yudelka Lopez Work Phone: [facility] 09-21-2022 12:05-0500 Body temperature 98.2 [degF] CHARGE ACCOUNT CLERK Yudelka Lopez Work Phone: [facility] 09-21-2022 12:05-0500 Body weight 71.6 kg CHARGE ACCOUNT CLERK Yudelka Lopez Work Phone: [facility] 07-04-2022 20:47-0400 Body temperature 98.2 [degF] CHARGE ACCOUNT CLERK Yudelka Lopez Work Phone: [facility] 07-04-2022 20:47-0400 Diastolic blood pressure 72 mm[Hg] CHARGE ACCOUNT CLERK Yudelka Lopez Work Phone: [facility] 07-04-2022 20:47-0400 Heart rate 83 /min CHARGE ACCOUNT CLERK Yudelka Lopez Work Phone: [facility] 07-04-2022 20:47-0400 Respiratory rate 18 /min CHARGE ACCOUNT CLERK Yudelka Lopez Work Phone: [facility] 07-04-2022 20:47-0400 SaO2% (BldA) [Mass fraction] 99 % CHARGE ACCOUNT CLERK Yudelka Lopez Work Phone: [facility] 07-04-2022 20:47-0400 Systolic blood pressure 119 mm[Hg] CHARGE ACCOUNT CLERK Yudelka Lopez Work Phone: [facility] 07-04-2022 18:45-0400 Body height 160.02 cm CHARGE ACCOUNT CLERKFamilia Lopez Work Phone: [facility] 07-04-2022 18:45-0400 Body weight 73.6 kg CHARGE ACCOUNT CLERKFamilia Lopez Work Phone: [facility] 06-01-2022 02:30-0400 Diastolic blood pressure 85 mm[Hg] CHARGE ACCOUNT CLERKFamilia Jha John Work Phone: [facility] 06-01-2022 02:30-0400 Heart rate 71 /min CHARGE ACCOUNT CLERK Yudelka Lopez Work Phone: [facility] 06-01-2022 02:30-0400 Respiratory rate 16 /min CHARGE ACCOUNT CLERK Yudelka Lopez Work Phone: [facility] 06-01-2022 02:30-0400 SaO2% (BldA) [Mass fraction] 100 % CHARGE ACCOUNT CLERK Yudelka Lopez Work Phone: [facility] 06-01-2022 02:30-0400 Systolic blood pressure 111 mm[Hg] CHARGE ACCOUNT CLERKFamilia Lopez Work Phone: [facility] 06-01-2022 01:29-0400 Body height 160.02 cm CHARGE ACCOUNT CLERK Yudelka Lopez Work Phone: [facility] 06-01-2022 01:29-0400 Body temperature 98 [degF] CHARGE ACCOUNT CLERKFamilia Jha John Work Phone: [facility] 06-01-2022 01:29-0400 Body weight 73.48 kg CHARGE ACCOUNT CLERK Yudelka Lopez Work Phone: [facility] 04-07-2022 12:02-0400 Body height 157.81 cm Yudelka Lopez Work Phone: [facility] Work Phone: 04-07-2022 12:02-0400 Body mass index (BMI) [Ratio] 30.42 kg/m2 Yudelka Lopez Work Phone: [facility] Work Phone: 04-07-2022 12:02-0400 Body surface area Derived from formula 1.77 m2 Yudelka Lopez Work Phone: [facility] Work Phone: 04-07-2022 12:02-0400 Body temperature 97.7 [degF] Yudelka Sonia Lopez Work Phone: [facility] Work Phone: 04-07-2022 12:02-0400 Body weight 75.75 kg Yudelka Sonia Lopez Work Phone: [facility] Work Phone: 04-07-2022 12:02-0400 Diastolic blood pressure 66 mm[Hg] Yudelka Sonia Lopez Work Phone: [facility] Work Phone: 04-07-2022 12:02-0400 Heart rate 73 /min Yudelka Sonia Lopez Work Phone: [facility] Work Phone: 04-07-2022 12:02-0400 Respiratory rate 16 /min Yudelka Lopez Work Phone: [facility] Work Phone: 04-07-2022 12:02-0400 SaO2% (BldA) [Mass fraction] 100 % Yudelka Sonia Lopez Work Phone: [facility] Work Phone: 04-07-2022 12:02-0400 Systolic blood pressure 137 mm[Hg] Yudelka Scott John Work Phone: [facility] Work Phone: 04-07-2022 12:02-0400 0 1 Yudelka Scott John Work Phone: [facility] Work Phone: Comment on above: [employer] 04-05-2022 00:01-0400 Diastolic blood pressure 63 mm[Hg] BETTY Lopez Work Phone: [facility] 04-05-2022 00:01-0400 Heart rate 59 /min BETTY Lopez Work Phone: [facility] 04-05-2022 00:01-0400 Respiratory rate 20 /min BETTY Lopez Work Phone: [facility] 04-05-2022 00:01-0400 SaO2% (BldA) [Mass fraction] 100 % CHARGE ACCOUNT CLERKFamilia Lopez Work Phone: [facility] 04-05-2022 00:01-0400 Systolic blood pressure 117 mm[Hg] BETTY Lopez Work Phone: [facility] 04-04-2022 17:01-0400 Body height 157.48 cm BETTY Lopez Work Phone: [facility] 04-04-2022 17:01-0400 Body mass index (BMI) [Ratio] 30.4 kg/m2 BETTY Lopez Work Phone: [facility] 04-04-2022 17:01-0400 Body temperature 98.7 [degF] BETTY Lopez Work Phone: [facility] 04-04-2022 17:01-0400 Body weight 75.6 kg BETTY Lopez Work Phone: [facility] 03-24-2022 11:38-0400 Body height 157.81 cm Unknown Unknown BD-Fiysotkqs-Lpp dman Work Phone: 03-24-2022 11:38-0400 Body mass index (BMI) [Ratio] 30.08 kg/m2 Unknown Unknown WB-Zbcceypwp-Fkyqidk Work Phone: 03-24-2022 11:38-0400 Body surface area Derived from formula 1.76 m2 Unknown Unknown PX-Jkdyqfkrm-Igsfoyu Work Phone: 03-24-2022 11:38-0400 Body temperature 98.24 [degF] Unknown Unknown GM-Pkhpbzrkd-Hg idman Work Phone: 03-24-2022 11:38-0400 Body weight 74.9 kg Unknown Unknown IE-Uvrgrqzcq-Met dman Work Phone: 03-24-2022 11:38-0400 Diastolic blood pressure 78 mm[Hg] Unknown Unknown QG-Axwgfmxac-Jtaunmx Work Phone: 03-24-2022 11:38-0400 Heart rate 82 /min Unknown Unknown LS-Sbmzungqi-Kwv dman Work Phone: 03-24-2022 11:38-0400 Respiratory rate 16 /min Unknown Unknown TM-Etwmkpijt-Ak idman Work Phone: 03-24-2022 11:38-0400 SaO2% (BldA) [Mass fraction] 100 % Unknown Unknown LB-Otbwirmct-Akzfhst Work Phone: 03-24-2022 11:38-0400 Systolic blood pressure 130 mm[Hg] Unknown Unknown FJ-Fvxxpztwf-Yytmvrk Work Phone: 03-24-2022 11:38-0400 6 1 Unknown Unknown KZ-Ahxqnylzd-Oww dman Work Phone: Comment on above: [employer] 03-15-2022 21:05-0400 Diastolic blood pressure 67 mm[Hg] BETTY Lopez Work Phone: [facility] 03-15-2022 21:05-0400 Heart rate 72 /min BETTY Lopez Work Phone: [facility] 03-15-2022 21:05-0400 Respiratory rate 18 /min BETTY Lopez Work Phone: [facility] 03-15-2022 21:05-0400 SaO2% (BldA) [Mass fraction] 100 % BETTY Lopez Work Phone: [facility] 03-15-2022 21:05-0400 Systolic blood pressure 127 mm[Hg] BETTY Lopez Work Phone: [facility] 03-15-2022 19:22-0400 Body height 157.48 cm CHARGE ACCOUNT CLERKFamilia Lopez Work Phone: [facility] 03-15-2022 19:22-0400 Body mass index (BMI) [Ratio] 30.9 kg/m2 CHARGE ACCOUNT CLERKFamilia Lopez Work Phone: [facility] 03-15-2022 19:22-0400 Body temperature 98.6 [degF] CHARGE ACCOUNT CLERKFamilia Lopez Work Phone: [facility] 03-15-2022 19:22-0400 Body weight 76.7 kg CHARGE ACCOUNT CLERKFamilia Lopez Work Phone: [facility] 03-04-2022 01:04-0400 Body height 157.48 cm BETTY Lopez Work Phone: [facility] 03-04-2022 01:04-0400 Body mass index (BMI) [Ratio] 30.4 kg/m2 CHARGE ACCOUNT CLERKFamilia Lopez Work Phone: [facility] 03-04-2022 01:04-0400 Body weight 75.55 kg BETTY Lopez Work Phone: [facility] 03-04-2022 01:01-0400 Body temperature 98.1 [degF] BETTY Lopez Work Phone: [facility] 03-04-2022 01:01-0400 Diastolic blood pressure 80 mm[Hg] CHARGE ACCOUNT CLERK Yudelka Lopez Work Phone: [facility] 03-04-2022 01:01-0400 Heart rate 81 /min CHARGE ACCOUNT CLERK Yudelka Lopez Work Phone: [facility] 03-04-2022 01:01-0400 Respiratory rate 18 /min BETTY Lopez Work Phone: [facility] 03-04-2022 01:01-0400 SaO2% (BldA) [Mass fraction] 97 % CHARGE ACCOUNT CLERK Yudelka Lopez Work Phone: [facility] 03-04-2022 01: Systolic blood pressure 129 mm[Hg] BETTY Lopez Work Phone: [facility] Encounters Encounter Date Encounter Type Care Provider Facility Start: 07-14-2024 End: 07-14-2024 Emergency department patient visit BETTY Lopez Work Phone: [facility] Work Phone: Start: 07-14-2024 End: 07-14-2024 ambulatory [facility] Work Phone: Start: 07-14-2024 End: 07-14-2024 Patient encounter procedure [facility] [place] Work Phone: Start: 02-21-2024 End: 02-21-2024 Emergency department patient visit [facility] Start: 02-21-2024 Encounter for gynecological examination (general) (routine) without abnormal findings [facility] Start: 02-19-2024 End: 02-19-2024 ambulatory MALCOLM ODILIA Not Available Start: 01-10-2024 End: 01-10-2024 ambulatory MALCOLM ODILIA Not Available Start: 12-10-2023 End: 12-11-2023 ambulatory Malagon Talal Sarmini Facility:[facility] Start: 12-10-2023 End: 12-10-2023 Patient encounter procedure Malagon Talal Sarmini [facility] Start: 11-27-2023 End: 11-27-2023 ambulatory MALCOLM ODILIA Not Available Start: 11-24-2023 End: 11-24-2023 Emergency department patient visit Yudelka Lopez Facility:[facility] Start: 11-13-2023 End: 11-13-2023 Emergency department patient visit Yudelka Lopez Facility:[facility] Start: 09-28-2023 End: 09-28-2023 ambulatory CHARGE ACCOUNT CLERK Yudelka Lopez Work Phone: [facility] Work Phone: Start: 09-28-2023 End: 09-28-2023 Registered Recurring BETTY Lopez Work Phone: [facility] Work Phone: Start: 09-27-2023 End: 09-27-2023 ambulatory BETTY Lopez Work Phone: [facility] Work Phone: Start: 09-27-2023 End: 09-27-2023 Departed Referred BETTY Lopez [facility] Start: 09-27-2023 Registered Recurring BETTY east Lopez Work Phone: [facility] Work Phone: Start: 06-27-2023 End: 06-27-2023 ambulatory BETTY Lopez Work Phone: [facility] Work Phone: Start: 06-27-2023 End: 06-27-2023 Registered Recurring BETTY Lopez Work Phone: [facility] Work Phone: Start: 06-14-2023 Registered Recurring BETTY Lopez Work Phone: [facility] Work Phone: Start: 06-14-2023 End: 06-14-2023 ambulatory BETTY Lopez Work Phone: [facility] Work Phone: Start: 06-14-2023 End: 06-14-2023 Patient encounter procedure BETTY Lopez Work Phone: [facility] [place] Work Phone: Start: 06-04-2023 End: 06-04-2023 ambulatory Marvin Po Other [place] [employer] Other Start: 06-04-2023 Office outpatient vi sit 15 minutes Marvin Fontenot [facility] [address] Start: 04-24-2023 End: 04-25-2023 ambulatory Kelly Hough Facility:[facility] Start: 04-24-2023 End: 04-24-2023 Patient encounter procedure Lex Elizabeth [facility] [place] Start: 04-03-2023 ambulatory Lex Elizabeth Facilit y:[facility] Start: 03-21-2023 End: 03-21-2023 ambulatory CHARGE ACCOUNT CLERKFamilia Lopez Work Phone: [facility] Work Phone: Start: 03-21-2023 End: 03-21-2023 Registered Recurring BETTY Lopez Work Phone: [facility] Work Phone: Start: 03-14-2023 End: 03-14-2023 ambulatory CHARGE ACCOUNT CLERKFamilia Lopez Work Phone: [facility] Work Phone: Start: 03-14-2023 End: 03-14-2023 Patient encounter procedure BETTY Lopez Work Phone: [facility] [place] Work Phone: Start: 02-07-2023 Registered Recurring BETTY Lopez Work Phone: [facility] Work Phone: Start: 02-06-2023 End: 02-06-2023 Emergency department patient visit BETTY Lopez Work Phone: [facility] Work Phone: Start: 01-29-2023 End: 01-29-2023 ambulatory CHARGE ACCOUNT CLERKFamilia Lopez Work Phone: [facility] Work Phone: Start: 01-29-2023 End: 01-29-2023 Patient encounter procedure BETTY Lopez Work Phone: [facility]Nuc Med [place] Work Phone: Start: 01-25-2023 Registered Recurring BETTY east John Work Phone: [facility] Work Phone: Start: 01-24-2023 End: 01-24-2023 ambulatory CHARGE ACCOUNT CLERK Yudelka Paulino Lopez Work Phone: [facility] Work Phone: Start: 01-24-2023 End: 01-24-2023 Discharged Recurring BETTY Lopez Work Phone: [facility]-Physical Therapy [address] Start: 12-25-2022 End: 12-25-2022 ambulatory BETTY Lopez Work Phone: [facility] Work Phone: Start: 12-25-2022 End: 12-25-2022 Patient encounter procedure BETTY Lopez Work Phone: [facility] [place] Work Phone: Start: 12-25-2022 Registered Recurring BETTY east Lopez Work Phone: [facility]Physical Therapy [address] Start: 12-22-2022 End: 12-22-2022 ambulatory Imad Asaad Other [employer] Other Start: 12-22-2022 Telephone encounter Imad Asaad [facility] Start: 12-21-2022 End: 12-21-2022 ambulatory Imad Asaad Other [employer] Other Start: 12-21-2022 [facility] visit new patient Imad Asaad [facility] Start: 12-07-2022 End: 12-07-[address] DOCTOR MARI Facility:[facility] Start: 11-29-2022 End: 11-30-[address] MALCOLM PENDLETON . Facility:[facility] Start: 11-28-2022 End: 11-28-2022 Emergency department patient visit CHARGE ACCOUNT CLERKFamilia Lopez Work Phone: [facility] Work Phone: Start: 11-01-2022 Registered Recurring CHARGE ACCOUNT CLERK Howard Lopez Work Phone: [facility] Work Phone: Start: 10-12-2022 End: 10-12-2022 ambulatory CHARGE ACCOUNT CLERK Yudelka Lopez Work Phone: [facility] Work Phone: Start: 10-12-2022 End: 10-12-2022 Patient encounter procedure BETTY Lopez Work Phone: [facility] [place] Work Phone: Start: 10-10-2022 Registered Recurring BETTY Lopez Work Phone: [facility] Work Phone: Start: 10-02-2022 End: 10-02-2022 ambulatory BETTY Lopez Work Phone: [facility] Work Phone: Start: 10-02-2022 End: 10-02-2022 Patient encounter procedure BETTY Lopez Work Phone: [facility]Ultrasound [place] Work Phone: Start: 09-21-2022 End: 09-21-2022 Emergency department patient visit BETTY Lopez Work Phone: [facility] Work Phone: Start: 09-15-2022 End: 09-15-2022 ambulatory CHARGE ACCOUNT CLERK Yudelka Lopez Work Phone: [facility] Work Phone: Start: 09-15-2022 End: 09-15-2022 Patient encounter procedure BETTY Yudelka Lopez Work Phone: [facility] [place] Work Phone: Start: 08-05-2022 End: 08-06-[address] MALCOLM PENDLETON . Facility:[facility] Start: 07-28-2022 End: 07-29-[address] MALCOLM PENDLETON . Facility:[facility] Start: 07-04-2022 End: 07-04-2022 Emergency department patient visit BETTY Yudelka Lopez Work Phone: [facility] Start: 07-03-2022 End: 07-03-[address] MALCOLM PENDLETON . Facility:[facility] Start: 06-01-2022 End: 06-01-2022 Emergency department patient visit BETTY Yudelka Lopez Work Phone: [facility] Start: 04-21-2022 Patient encounter procedure Yudelka Lopez Work Phone: [facility] Work Phone: Start: 04-21-2022 Postop follow up vis it related to original px Yudelka Lopez Work Phone: [facility] Work Phone: Start: 04-18-2022 End: 04-19-[address] DOCTOR MARI Facility:[facility] Start: 04-17-2022 Chart Update Yudelka Lopez Work Phone: [facility] Work Phone: Start: 04-14-2022 End: 04-14-2022 Departed Referred BETTY Yudelka Lopez Work Phone: [facility] Start: 04-11-2022 End: 04-11-[address] REBECCA GALVEZ Facility:[facility] Start: 04-07-2022 Postop follow up vis it related to original px Yudelka Lopez Work Phone: [facility] Work Phone: Start: 04-04-2022 End: 04-05-2022 Emergency department patient visit BETTY Lopez Work Phone: [facility] Start: 04-04-2022 AUDIT Yudelka Lopez Work Phone: [facility] Work Phone: Start: 03-31-2022 End: 03-31-2022 Patient encounter procedure BETTY Lopez Work Phone: [facility] Start: 03-24-2022 Patient encounter procedure Unknown Unknown [facility] Work Phone: Start: 03-15-2022 End: 03-15-2022 Emergency department patient visit BETTY Lopez Work Phone: [facility] Start: 03-04-2022 End: 03-04-2022 Emergency department patient visit BETTY Lopez Work Phone: [facility] Start: 02-20-2022 End: 02-20-2022 ambulatory [...] Phone: Start: 10-02-2022 US scan of thyroid CHARGE ACCOUNT CLERKFamilia Lopez Work Phone: Start: 10-02-2022 X-ray of cervical spine CHARGE ACCOUNT CLERKFamilia christina Work Phone: Start: 09-21-2022 SARS-CoV-2, Influenza & RSV (PCR) CHARGE ACCOUNT CLERKFamilia Lopez Work Phone: Start: 09-21-2022 Plain chest [...] 02-12-2020 Esophagogastroduodenoscopy Lex Elizabeth Start: 09-03-2019 section eLx Elizabeth section Lex christina None (qualifier value) Lex Elizabeth Plan of Treatment Date Care Activity Detail Author Start: 08-07-2023 [facility] Start: 07-24-2023 [facility] Start: 02-07-2023 [facility] Start: 01-31-2023 [facility] Start: 01-26-2023 End: 01-26-2023 [facility] Start: 01-24-2023 End: 01-25-2023 [facility] Start: 11-28-2022 X-ray of left foot XR foot LT min 3V * [facility] Start: 11-28-2022 XR Foot - left GE 3 Views [facility] Start: 11-01-2022 [facility] Start: 10-24-2022 End: 10-25-2022 [facility] Start: 10-17-2022 [facility] Start: 10-13-2022 [facility] Start: 10-12-2022 End: 10-13-2022 [facility] Start: 10-10-2022 [facility] Start: 04-21-2022 POV, Provider: Sly Crocker, Status: Pen, Time: 10:30 AM POV, Provider: Sly Crocker, Status: Pen, Time: 10:30 AM [facility] Work Phone: Albumin [Mass/volume ] in Serum or Plasma [facility] Albumin/Globulin ratio [facility] Calprotectin [Mass/m ass] in Stool [facility] Comprehensive metabo lic 1999 panel - Serum or Plasma [facility] Comprehensive metabo lic 1999 panel - Serum or Plasma [facility] Comprehensive metabo lic 1999 panel - Serum or Plasma [facility] Comprehensive metabo lic 1999 panel - Serum or Plasma [facility] Copper measurement [facility] Electrophoresis: [id number] [facility] Electrophoresis: [id number] [facility] Electrophoresis: beta-globulin [facility] Electrophoresis: manohar ma globulin [facility] Endomysial antibody IgA level [facility] Erythrocyte sediment ation rate by Photometric method [facility] Erythropoietin (EPO) [Units/volume] in Serum or Plasma [facility] Ferritin [Mass/volum e] in Serum or Plasma [facility] Gliadin peptide IgA Ab [Units/volume] in Serum [facility] Gliadin peptide IgG Ab [Units/volume] in Serum [facility] Globulin [Mass/volum e] in Serum [facility] HIV 1+2 Ab+HIV1 p24 Ag [Presence] in Serum or Plasma by Immunoassay [facility] IgA [Mass/volume] in Serum or Plasma [facility] IgA [Mass/volume] in Serum or Plasma [facility] IgG [Mass/volume] in Serum or Plasma [facility] IgM [Mass/volume] in Serum or Plasma [facility] [place] light chains.f ree [Mass/volume] in Serum [facility] [place] light chains.free/Lambda light chains.free [Mass Ratio] in Serum [facility] Lactate dehydrogenas e [Enzymatic activity/volume] in Unspecified specimen [facility] Lambda light chains. free [Mass/volume] in Serum or Plasma [facility] Patient Education [facility] Work Phone: Patient referral [facility] Work Phone: Protein [Mass/volume ] in Serum or Plasma [facility] Reagin Ab [Presence] in Serum by RPR [facility] Serum immunofixation [facility] Thyroglobulin Ab [Units/volume] in Serum or Plasma [facility] Thyroperoxidase Ab [Units/volume] in Serum or Plasma [facility] Thyrotropin receptor Ab [Units/volume] in Serum [facility] Tissue transglutamin ase IgA Ab [Units/volume] in Serum [facility] Tissue transglutamin ase IgG Ab [Units/volume] in Serum [facility] Immunizations Immunization Date Immunization Notes Care Provider Iker castro 09-01-2021 influenza virus vaccine, unspecified formulation Malagon Sarmini [facility] 01-10-2016 tetanus toxoid, reduced diphtheria toxoid, and acellular pertussis vaccine, adsorbed Malagon Sarmini [facility] 09-30-2009 hepatitis A vaccine, unspecified formulation Malagon Sarmini [facility] 09-30-2009 hepatitis B vaccine, pediatric or pediatric/adolescent dosage Malagon Sarmini [facility] 05-27-2009 hepatitis B vaccine, pediatric or pediatric/adolescent dosage Malagon Sarmini [facility] 03-22-2009 hepatitis A vaccine, unspecified formulation Malagon Sarmini [facility] 03-22-2009 hepatitis B vaccine, pediatric or pediatric/adolescent dosage Malagon Sarmini [facility] 03-22-2009 measles, mumps and rubella virus vaccine Malagon Sarmini [facility] 03-22-2009 meningococcal ACWY vaccine, unspecified formulation Malagon Sarmini [facility] 03-22-2009 tetanus toxoid, reduced diphtheria toxoid, and acellular pertussis vaccine, adsorbed Malagon Chuchomini [facility] NEGATED: Highlighted row has not occurred!12-07-2023 influenza virus vaccine, unspecified formulation Malagon Sarmini [facility] Payers Date Payer Category Payer Self-pay [id number] 1990 Unknown [id number] 2.16.84 [id number] 1992 Unknown [id number] .16.84 0.1.003420.3.579.2.59 1992 Unknown [id number] .16.84 0.1.305876.3.579.2.593 1992 Unknown [id number] .16.84 0.1.409284.3.579.2.593 1992 Unknown [id number] 2.16.84 0.1.823607.3.579.2.593 1992 Unknown [id number] 2.16.84 0.1.046067.3.579.2.593 1992 Unknown [id number] 2.16.84 0.1.938607.3.579.2.593 1992 Unknown [id number] 2.16.84 0.1.886029.3.579.2.593 1992 Unknown [id number] 2.16.84 0.1.743048.3.579.2.593 1992 Unknown [id number] 2.16.84 0.1.413446.3.579.2.593 1992 Unknown [id number] 2.16.8 40.1.962331.3.579.2.727 1992 Unknown [id number] 2.16.8 40.1.375995.3.579.2.727 1992 Unknown [id number] 2.16.84 0.1.487871.3.579.2.1259 1992 Unknown [id number] 2.16.84 0.1.559325.3.579.2.1259 1992 Unknown [id number] 2.16.84 0.1.569801.3.579.2.1259 1992 Unknown [id number] 2.16.8 40.1.395618.3.579.2.1286 1959 Private Health Insurance [id number] Private Health Insurance [id number] Private Health Insurance [id number] Unknown Unknown [id number] 2.16.8 40.1.693340.3.579.2.531 Worker's Compensation [id number] Social History Date Type Detail Facility Start: 04-04-2022 End: 07-14-2024 Tobacco smoking status NHIS Never smoked tobacco (finding) [facility] Start: 1990 Sex Assigned At Female [facility] Sex Assigned At [facility] Tobacco smoking status Never [facility] NEGATED: Highlighted row Fir [facility] Goals Date Patient Goal Desired Activity /State Clinical Notes 04-03-2022 to 07-04-2023 Note Date & Type Note Facility 07-04-2023 Progress note Note Date/Time June 27, 2023 10:36[facility] [place] [id number] Hem/Onc Follow Up Note - OP Signed Patient: Leandra Fonseca MR#: [id number] : 1990 Acct:[id number] Age/Sex: 33 / F Type: REG RCR Copies to: Yudelka Lopez APRN, TOP EDGE BEVELER-C~ Date of Service: 06/27/2023 Time of Service: [...] She believes she had this done at [facility] in [place] in 2019. We will request these records, and if they are not available, will plan repeat testing including hemoglobin electrophoresis. In themeantime check b12, folate, copper, epo, reticulocytes, haptoglobin, LDH, and christiano testing. B12 deficiency Will initiate weekly B12 injections x 4, then switch to monthly Follow Up Instructions: b12 weekly x 4 then monthly get [facility] records from 2019- hgb electrophoresis, thalassemia testing [...] cravings denies new complaints. 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 Her heavy days she [...] for coordination of care (as documented) and gckr-xs-qwdy counseling of patient and/or family. [facility] - Medical History Medical History: Medical History [...] By: <Electronically signed by BETTY Hough> 07/03/23 4950 [facility] Work Phone: 1(209) 591-375909-18-2023 Evaluation note* Encounter Date Diagnosis Assessment Notes Treatment Notes Treatment Clinical Notes May, Rash and nonspecific skin eruption (ICD-10 - R21) 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 Given return precautions. [employer] Other 07-18-2023 Progress note Author Kelly Hough [facility] April 03, 2023 9:16am Note Date/Time March 21, 2023 3:35p [facility] at [address] [address] Hem/Onc Follow Up Note - OP Signed Patient: Leandra Fonseca MR#: [id number] : 1990 Acct:[id number] Age/Sex: 32 / F Type: REG RCR [...] cravings denies new complaints. 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 Her heavy days she [...] 25 mg rectal suppository (Anusol-HC) 25 mg W[place] DAILY 2 weeks #12 ea 02/06/23 [Rx [...] for coordination of care (as documented) and eknv-xj-grop counseling of patient and/or family. Dictated By: Kelly Hough APRN DD/ [id number] Signed By: <Electronically signed by BETTY Hough> 04/03/23 4801 [facility] Work Phone: 1(430) 214-161604-19-2023 Progress note Author Kelly Hough [facility] January 03, 2023 2:03pm Note Date/Time January 02, 2023 10: 47am [facility] [place] [id number] Hem/Onc Follow Up Note - OP Signed Patient: Leandra Fonseca MR#: [id number] : 1990 Acct:[id number] Age/Sex: 32 / F Type: REG RCR [...] cravings denies new complaints. 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 Her heavy days she [...] for coordination of care (as documented) and gtmh-ry-shzo counseling of patient and/or family. Dictated By: Kelly Hough APRN DD/ [id number] Signed By: <Electronically signed by BETTY Hough> 01/03/23 1404 [facility] Work Phone: 1(281) 307-243304-07-2023 Evaluation note* Encounter Date Diagnosis Assessment Notes Treatment Notes Treatment Clinical Notes Dec, Abdominal pain (ICD-10 - R10.9) Dec, Bloating (ICD-10 - R14.0) Dec, Nausea (ICD-10 - R11.0) [employer] Other 04-06-2023 Evaluation note* Encounter Date Diagnosis [...] - K92.1) Dec, Other Obtain records from [employer] in 2019 for EGD/Colonoscopy [employer] [facility] [employer] Other 01-17-2023 Consult note Author Kelly Hough [facility] October 03, 2022 1:04pm Note Date/Time October 03, 2022 1 1:23[facility] [place] [address] Hem/Onc Consult Note - OP Signed with Gena Patient: Leandra Fonseca MR#: [id number] : 1990 Acct:[id number] Age/Sex: 32 / F Type: REG RCR Copies to: Yudelka Lopez APRN, TOP EDGE BEVELER-C~ ADDENDUM1 Patient had labs after her visit [...] going to the ER with worsening symptoms. [facility] - Medical History Medical History: Medical History [...] for coordination of care (as documented) and beaz-qy-cdzw counseling of patient and/or family. Dictated By: Kelly Hough APRN DD/ [id number] Signed By: <Electronically signed by BETTY Hough> 10/03/22 1252 [facility] Work Phone: 1(437) 364-315107-18-2022 NotePROCEDURE DETAILS Preoperative Diagnosis: Left abdominal wall endometrioma Postoperative Diagnosis: Same Surgeon: Sly Crocker Resident/Fellow/Other Flight Attendant Ramp: Ariel Thompson Procedure: 1. LEFT ABDOMINAL WALL TUMOR RESECTION 8X5.5X4CM 2. MESH RECONSTRUCTION ANTERIOR RECTUS FASCIA 7X5CM DEFECT (Bard Soft Mesh) 3. COMPLEX CLOSURE OF A 8CM WOUND Anesthesia: Alan Pardo Estimated Blood Loss: 10ml Findings: 8X5.5X4CM SOFT TISSUE MASS WITH EN BLOC FASCIA AND OVERLYING SKIN PADDLE Specimens(s) Collected: yes, Left anterior wall soft tissue mass -short [id number]:00, long lateral 300 Complications: None Drains and/or [...] of the procedure. Note Recipients: Yudelka Lopez, CHARGE ACCOUNT CLERK-CATALINA BOSWELLRAFAELA MALCOLM R - [id number] [] Attestation: Note Completion: Attending AttestationI was present for the entire procedure Electronic Signatures: Sly Crocker) (Signed 03-Apr-2022 17:55) Authored: Post-Operative Note, Chart Review, Note Completion Last Updated: 03-Apr-2022 17:55 by Sly Crocker)[facility]07-18-2022 NoteHistory & Physical Reviewed: /Lactating: Are You [...] the note. I personally evaluated the patient [id number] Electronic Signatures: Miguel Crawford (Resident)) (Signed 03-Apr-2022 12:08) Authored: History & Physical Reviewed, ERAS, Consent, Note Completion Sly Crocker) (Signed 03-Apr-2022 14:42) Authored: Note Completion Co-Signer: History & Physical Reviewed, ERAS, Consent, Note Completion Last Updated: 03-Apr-2022 14:42 by Sly Crocker)[facility] No data available for this section [facility] [place] Evaluation noteNo assessment information available [facility] Work Phone: Evaluation note* Diagnosis Onset Date Resolution Status Iron deficiency anemia due to chronic blood loss acute [facility] Work Phone: Evaluation note* Diagnosis Onset Date Resolution Status Abdominal pain acute [facility] Work Phone: History general Narrative - Reported* Type Description Date Medical History concussion Medical History IBS-C Surgical History C SECTION Hospitalization History see above [employer] Other History of Present illness Narrative* Ms. [...] sensorimotor deficits * Extremities: No leg swelling [facility] Work Phone: History of Present illness Narrative* [...] to the telephone nature of this visit. [facility] Work Phone: Hospital Discharge instructions Additional Instructions If your symptoms return/worsen or you develop any further concerns or symptoms please see your doctor or return to the emergency department immediately.[facility] Work Phone: Hospital Discharge instructions Additional Instructions Follow-up with your primary care doctor Return to ED if you develop worsening symptoms or [facility] Work Phone: Hospital Discharge instructions Additional Instructions Return for worsening symptoms [facility] Work Phone: Hospital Discharge instructions No data available for this section [facility] Hospital Discharge instructions Additional Instructions We evaluated you for your symptoms. Your workup here was unremarkable. Please use the nausea medicine as prescribed. Please follow closely with your primary doctor. Please return to the emergency department if you develop any worsening or concerning symptoms. [facility] Work Phone: Progress note No data available for this section [facility] Summary Purpose Family History No Family [...] section and content) DATE CREATED AUTHOR 04/07/2022 [facility] DATE CREATED AUTHOR AUTHOR'S ORGANIZ ATION 04/23/2022 [employer] DATE CREATED AUTHOR AUTHOR'S ORGANIZ ATION 04/28/2022 [facility] DATE CREATED AUTHOR AUTHOR'S ORGANIZ ATION 05/16/2022 [facility] DATE CREATED AUTHOR AUTHOR'S ORGANIZ ATION 12/21/2022 [facility] DATE CREATED AUTHOR AUTHOR'S ORGANIZ ATION 12/11/2023 [facility] DATE CREATED AUTHOR AUTHOR'S ORGANIZ ATION 02/20/2024 [facility] DATE CREATED AUTHOR AUTHOR'S ORGANIZ ATION 02/22/2024 [facility] DATE CREATED AUTHOR AUTHOR'S ORGANIZ ATION 07/25/2024 [facility] Care Teams (unrecognized sec tion and content) Team Status: Active Member Role Status Dates Yudelka Lopez APRN [employer] BEVELER-C Primary Care Provider Act klever Team Status: Inactive Member Role Status Dates Yudelka Lopez APRN [employer] BEVELER-C Primary Care Provider Act klever Start: July 14, 2024 End: July 14, 2024 Larry Underwood PA-C Attending Provider Active St art: July 14, 2024 End: July 14, 2024 Team Status: Active Member Role Status Dates Yudelka Lopez APRN [employer]EVELER-C Primary Care Provider, Re edita Provider Active Kelly Hough APRN Attending Provider Acti ve Team Status: Inactive Member Role Status Dates Yudelka Lora Lopez , CHARGE ACCOUNT CLERK [employer]EVELER-C Primary Care Provider Act klever Dayne Horton MD Attending Provider Active Team Status: Inactive Member Role Status Dates Yudelka Lopez , CHARGE ACCOUNT CLERK [employer] BEVELER-C Primary Care Provider Act kleveralbino Vega PA-C Emergency Provider Active Team Status: Active Member Role Status Dates Yudelka Lopez , CHARGE ACCOUNT CLERK [employer] BEVELER-C Primary Care Provider, At tending Provider Active Team Status: Inactive Member Role Status Dates Yudelka Lopez , CHARGE ACCOUNT CLERK [employer] BEVELER-C Primary Care Provider Act kleveralbino Shanks MD Attending Provider Active Dayne Horton MD Referring Provider Active Team Status: Inactive Member Role Status Dates Yudelka Lopez , CHARGE ACCOUNT CLERK [employer]GE BEVELER-C Primary Care Provider, At tending Provider Active Team Status: Inactive Member Role Status Dates Yudelka Lopez , CHARGE ACCOUNT CLERK [employer]GE BEVELER-C Primary Care Provider Act klever Frank Silva , DO Emergency Provider Active Team Status: Inactive Member Role Status Dates Yudelka Lopez , CHARGE ACCOUNT CLERK [employer]GE BEVELER-C Primary Care Provider Act klever Sly Crocker MD Attending Provider Active Team Status: Inactive Member Role Status Dates Yudelka Lopez , CHARGE ACCOUNT CLERK [employer]GE BEVELER-C Primary Care Provider Act klever Jim Vega , DO Emergency Provider Active Team Status: Inactive Member Role Status Dates Yudelka Lopez , CHARGE ACCOUNT CLERK [employer]GE BEVELER-C Primary Care Provider Act klever Chris Greenwood , DO Emergency Provider Active Team Status: Inactive Member Role Status Dates Yudelka Lopez , CHARGE ACCOUNT CLERK [employer] BEVELER-C Primary Care Provider Act klever Marvin Serrano Jr, MD Emergency Provider Active Team Status: Inactive Member Role Status Dates Yudelka Lopez , CHARGE ACCOUNT CLERK [employer] BEVELER-C Primary Care Provider Act klever Frank Silva , DO Emergency Provider Active Vicky Fuentes DO RES Active Team Status: Inactive Member Role Status Dates Yudelka Lopez , CHARGE ACCOUNT CLERK [employer]GE BEVELER-C Primary Care Provider Act klever Tejinder Peraza TOP EDGE BEVELER-C Attending Provider Active Team Status: Inactive Member Role Status Dates Jim Vega , DO Emergency Provider Active Yudelka Lopez , CHARGE ACCOUNT CLERK [employer]GE BEVELER-C Primary Care Provider Act klever Team Status: Inactive Member Role Status Dates Yudelka Lopez , CHARGE ACCOUNT CLERK [employer]GE BEVELER-C Primary Care Provider Act kleveralbino Shanks MD Attending Provider Active Team Status: Inactive Member Role Status Dates Yudelka Lopez , CHARGE ACCOUNT CLERK [employer]GE BEVELER-C Attending Provider Active Team Status: Inactive Member Role Status Dates Yudelka Lopez APRN [employer]GE BEVELER-C Primary Care Provider Act klever Start: July [...] LOPEZ/HX OF IBS/FM HX OF CROHN'S/SEEN IN [place] ER-RECORDS REQUESTEDGastric emptying studyRASH ON BACK FOR [...] BE BASED ON THE PRIMARY CLINICAL RECORDS. [employer] provides no warranty or guarantee of the accuracy or completeness of information in this document.
[2024-08-04 08:14] LABS: HCG Quantitative 4763 mIU/mL
== END 2024-08-04 06:33 | disposition home or self-care (01) ==
LOC: LAB 06:32
PROVIDERS: Visit Provider Obstetrics & Gynecology
DX: O02.81 Inappropriate change in quantitative human chorionic gonadotropin (hCG) in early pregnancy (principal)
CPT/HCPCS: 36415; 84702

== ENCOUNTER 2024-08-26 08:56 | Outpatient (OUT) | payer OTHER, SELFPAY ==
--- NOTE | 2024-08-26 08:59 | US_ITS ---
The [address] [address] Patient Name: LISHA FONSECA MRN: [id number] date: 1990 Sex: F Assigned Patient Location: [facility] Current Patient Location: Accession/Order Number: [id number] Exam Date: 08/26/2024 08:59 Report Date: 08/27/2024 04:27 At the request of: MARIA HARTLEY Procedure: US OB transvaginal EXAMINATION: US OB transvaginal HISTORY: MISSED MENSES COMPARISON: No relevant comparison available. FINDINGS: GESTATIONAL SAC: Present and normal appearing. YOLK SAC: Present and normal appearing. POLE: Present and normal appearing. CARDIAC: Present. UTERUS: Normal size and appearance. OVARIES: Right: Normal. Left: Corpus lutein cyst. CERVIX: 4.4 cm in length and closed. CUL-DE-SAC: Normal. OTHER: None. AGE BY LMP: 9 weeks 1 day MORALES BY LMP: 03/30/2025 AGE BY US CRL: 8 weeks 2 days MORALES BY US CRL: 04/05/2025 US/US OB transvaginal IMPRESSION: 1. Single live intrauterine . Electronically authenticated by: KALPEHS FOWLER Date: 08/27/2024 04:27
== END 2024-08-26 08:57 | disposition home or self-care (01) ==
LOC: NOMS 08:56
PROVIDERS: Visit Provider Obstetrics & Gynecology
DX: Z34.91 Encounter for supervision of normal pregnancy, unspecified, first trimester (principal); Z3A.09 9 weeks gestation of pregnancy
CPT/HCPCS: 76817

== ENCOUNTER 2024-09-11 11:26 | Outpatient (OUT) | payer OTHER, SELFPAY ==
--- OUTSIDE RECORDS SUMMARY | 2024-09-11 11:36 | XMS_ITS | CCD ---
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 [Acute upper respiratory infection, unspecified] 12-11-2019 Episodic Ovarian cyst (9 sources) Other ovarian cyst, right side; Translations: [Other ovarian cyst, unspecified side] Onset: 08-01-2022 Episodic Superficial injury; contusion (20 sources) Contusion of lower limb; Translations: [Contusion of left lower leg, initial encounter] 08-17-2020 Episodic Syncope (20 sources) Syncope; Translations: [Syncope and collapse] 03-08-2021 Episodic Unclassified (1 source) Object in vaginal Onset: 02-21-2024 Unclassified (1 source) Encounter for screening for infections with a predominantly sexual mode of transmission; Translations: [Encounter for screening for infections with a predominantly sexual mode of transmission] Onset: 09-27-2023 Urinary tract infections (20 sources) Urinary tract infectious disease; Translations: [Urinary [...] (4 sources) Onset: 06-03-2015 Resolved: 08-17-2020 08-27-2020 NEGATED: Highlighted row has been ruled out!Unclassified (2 sources) No known active problems 05-15-2023 Results Test Name Value Interpretation Reference Range Facility HCG ( test) Ql (U)o n 08-26-2024 Interpretation and review of laboratory results Abnormal [facility] Preg Test, Ur Positive Negative [facility] Urinalysis macro (dipstick) panel (U)on 08-26-2024 Bilirubin, UA Negative Negative - 4(70) +++ mg/dL [facility] Blood, UA Negative Negative - 50 Hong/mcL [facility] Clarity, UA Clear [facility] Color, UA Yellow [facility] Glucose, UA Negative Negative - 1999(110) ++++ mg/dL [facility] Interpretation and review of laboratory results Abnormal [facility] Ketones, UA Positive Negative - 160(16) ++++ mg/dL [facility] Leukocytes, UA Negative Negative - 500+++ Iqra/mcL [facility] Nitrite, UA Negative Negative - Positive [facility] pH, UA 7 5 - 9 [facility] Protein, UA Negative Negative - 1999(20) ++++ mg/dL [facility] Spec Grav, UA 1.015 1 - 1.03 [facility] Urobilinogen, UA 1.0 0.2 - 12 mg/dL [facility] ECG 12 lead ECGon 08-07-2024 ECG 12 lead ECG [facility] [place] [address] Electrocardiograph Report Signed Patient: Leandra Fonseca MR#: [id number] : 1990 Acct:[id number] Age/Sex: 34 / F ADM Date: 08/06/24 Loc: Room: [address] [place] [address] Type: ADM IN Attending Dr: Julián Naqvi MD Ordering Provider: Julián Naqvi MD Date of Service: 08/07/24 ECG/ECG 12 lead ECG: baseline for psych meds Copies to: Test Reason : Blood Pressure : */* mmHG Vent. Rate : 61 BPM Atrial Rate : 61 BPM P-R Int : 162 ms QRS Dur : 76 ms QT Int : 414 ms P-R-T Axes : 73 66 46 degrees QTcB Int : 416 ms Normal sinus rhythm Normal ECG When compared with ECG of 14-Jul-2024 12:20, Vent. rate has decreased by 30 bpm Confirmed by Brock Rowe ([id number]) on 08/07/2024 5:03:20 PM Referred By: Electronically Signed By: Brock Rowe Transcribed By: MUS Signed By Brock Rowe MD 08/07/24 1703 Normal [facility] US OB transvaginalon 024 US OB transvaginal [facility] [place] [address] Ultrasound Report Signed Patient: Leandra Fonseca MR#: [id number] : 1990 Acct:[id number] Age/Sex: 34 / F ADM Date: 08/06/24 Loc: Room: [address] [place] [address] Type: ADM IN Attending Dr: Julián Naqvi MD Ordering Provider: Julián Naqvi MD; TAM TRACY MD Date of Service: 08/07/24 US/US OB <= 14 weeks fetus: dating and anatomy ([id number]) US/US OB transvaginal: . Copies to: MD TAM Palomo MD FIRST TRIMESTER OB ULTRASOUND (transabdominal and transvaginal) CLINICAL DATA: Size and dates. Abdominal cramping. Beta hCG 11,991 COMPARISON: None Real-time ultrasound evaluation of the pelvis was performed utilizing both a transabdominal and transvaginal approach. TRANSABDOMINAL: The urinary bladder is poorly distended and the uterus is anteverted. There is suggestion of an eccentric gestational sac toward the right. There are some intraluminal low level echoes however no convincing yolk sac or pole are demonstrated. A heterogeneous area is present along the left aspect of the suspected gestational sac with could be an implantation hemorrhage. The ovaries were not identified. TRANSVAGINAL: Transvaginal imaging was performed to better evaluate the . By this approach, the myometrium is heterogeneous. There is a more nodular hypoechoic area anteriorly measuring 2.9 x 2.0 x 3.2 cm. A fibroid is not excluded. A suspected gestational sac is again seen. A yolk sac is identified. No definite pole is seen. Based on the mean gestational sac size of 9.3 mm, this would correlate with an ultrasound age of 5 weeks 4 days. The estimated date of delivery would be April 05, 2025. Once again there is potential implantation hemorrhage. The right ovary was not identified. The left ovary measures 4.5 x 2.3 x 2.7 cm. There is a irregular cystic area with thickened wall measuring 2.2 x 2.1 x 2.0 cm. This may be a corpus luteum. There is a trace amount of free fluid near the left ovary. US/US OB <= 14 weeks fetus IMPRESSION: PROBABLE EARLY INTRAUTERINE AT 5 WEEKS 4 DAYS. FOLLOW-UP SERIAL BETA-HCG AND ULTRASOUND ARE SUGGESTED. POSSIBLE CORPUS LUTEUM AT THE LEFT OVARY. TRACE AMOUNT OF LEFT FREE PELVIC FLUID. POTENTIAL UTERINE FIBROID. Impression dictated by: Michell Miller M.D.08/07/2024 6:32 PM Dictation Location: [place] [address] Tech: Tena Romero Transcribed By: CHRISTINE 08/07/241831 Dictated By: Michell Miller MD 08/07/241824 Signed By: 08/07/241831 Normal [facility] Alanine aminotransferase [En zymatic activity/volume] in Serum or PlasmaOrdered By: Marvin Serrano on 08-06-2024 ALT [Catalytic activity/Vol] Alanine aminotransferase [Enzymatic activity/volume] in Serum or Plasma 7-52 [facility] Albumin [Mass/volume] in Ser um or Plasma by Bromocresol green (BCG) dye binding methoOrdered By: Marvin Serrano on 08-06-2024 Albumin BCG dye [Mass/Vol] Albumin [Mass/volume] in Serum or Plasma by Bromocresol green (BCG) dye binding metho 3.5-5.7 [facility] Alkaline phosphatase [Enzyma tic activity/volume] in Serum or PlasmaOrdered By: Marvin Serrano on 08-06-2024 ALP [Catalytic activity/Vol] Alkaline phosphatase [Enzymatic activity/volume] in Serum or Plasma 34-104 [facility] Amphetamine Screen Ql (U)Ord ered By: Marvin Serrano on 08-06-2024 Amphetamines Ql (U) Amphetamines screen Negativ e [facility] Appearance of UrineOrdered B y: Marvin Serrano on 08-06-2024 Appearance (U) Urine appearance Clear [facility] Aspartate aminotransferase [ Enzymatic activity/volume] in Serum or PlasmaOrdered By: Marvin Serrano on 08-06-2024 AST [Catalytic activity/Vol] Aspartate aminotransferase [Enzymatic activity/volume] in Serum or Plasma Low 13-39 [facility] Bacteria [Presence] in Urine by AutomatedOrdered By: Marvin Serrano on 08-06-2024 Bacteria Auto Ql (U) Bacteria [Presence] in Urine by Automated None Seen [facility] Barbiturates [Presence] in U rine by Screen methodOrdered By: Marvin Serrano on 08-06-2024 Barbiturates Screen Ql (U) Barbiturates [Presence] in Urine by Screen method Negative [facility] Basophils Auto (Bld) [#/Vol] Ordered By: Marvin Serrano on 08-06-2024 Basophils (Bld) [#/Vol] Automated basophil count 0.0-0.2 [facility] Basophils/100 WBC Auto (Bld) Ordered By: Marvin Serrano on 08-06-2024 Basophils/100 WBC (Bld) Automated basophil % . [facility] Benzodiazepines Screen Ql (U )Ordered By: Marvin Serrano on 08-06-2024 Benzodiazepines Ql (U) Benzodiazepines [ Presence] in Urine by Screen method Negative [facility] Benzoylecgonine [Presence] i n Urine by Screen methodOrdered By: Marvin Serrano on 08-06-2024 Benzoylecgonine Screen Ql (U) Benzoylecgonine [Presence] in Urine by Screen method Negative [facility] Bilirubin Test strip Ql (U)O rdered By: Marvin Serrano on 08-06-2024 Bilirubin Ql (U) Bilirubin.total [Pre sence] in Urine by Test strip Negative [facility] Bilirubin.total [Mass/volume ] in Serum or PlasmaOrdered By: Marvin Serrano on 08-06-2024 Bilirubin [Mass/Vol] Bilirubin.total [Mass/volume] in Serum or Plasma 0.3-1.0 [facility] Calcium [Mass/volume] in Ser um or PlasmaOrdered By: Marvin Serrano on 08-06-2024 Calcium [Mass/Vol] Calcium [Mass/volume ] in Serum or Plasma 8.6-10.3 [facility] Cannabinoids [Presence] in U rine by Screen methodOrdered By: Marvin Serrano on 08-06-2024 Cannabinoids Screen Ql (U) Cannabinoids [Presence] in Urine by Screen method Negative [facility] Comment on above: These are unconfirme d results and should not be used for legal purposes. Drug Cut-Off Concentration: AMPH 1000 ng/mL BEKA 200 ng/mL CALDERON 200 ng/mL COCM 300 ng/mL OP 300 ng/mL PCP 25 ng/mL THC 20 ng/mL Carbon dioxide, total [Moles /volume] in Serum or PlasmaOrdered By: Marvin Serrano on 08-06-2024 CO2 [Moles/Vol] Carbon dioxide, tota l [Moles/volume] in Serum or Plasma 21.0-31.0 [facility] Chloride [Moles/volume] in S salas or PlasmaOrdered By: Marvin Serrano on 08-06-2024 Chloride [Moles/Vol] Chloride [Moles/vol ume] in Serum or Plasma 98-107 [facility] Choriogonadotropin.beta subu nit [Units/volume] in Serum or PlasmaOrdered By: Marvin Serrano on 08-06-2024 HCG.beta subunit Qn Choriogonadotropin.b eta subunit [Units/volume] in Serum or Plasma [facility] Comment on above: Approximate Approxim ate hCG Gestational Age Range (mIU/ml) (weeks)0.2-1 5-50 1-2 50-500 2-3 100-5,000 3-4 500-10,000 4-5 1,000-50,000 5-6 10,000-100,000 6-8 15,000-200,000 8-12 10,000-100,000 Color Auto (U)Ordered By: Dane Serrano on 08-06-2024 Color (U) Color of Urine by Auto Yellow Fi [facility] Complete Blood Count Auto Di ffon 08-06-2024 Basophils (Bld) [#/Vol] 0.1 10*3/uL Normal 0.0-0.2 [facility] Comment on above: Result Comment: PERF ORMED BY: [facility] [address] [place] [address] PATHOLOGIST BOTTLE FILLER TRISTEN MOSELEY M.D. Performed By: #### E NATALIE, CBC, CMP #### [address] Basophils/100 WBC (Bld) 0.7 % Normal . [facility] Comment on above: Performed By: #### E NATALIE, CBC, CMP #### [address] Eosinophils (Bld) [#/Vol] 0.1 10*3/uL Normal 0.0-0.45 [facility] Comment on above: Performed By: #### E NATALIE, CBC, CMP #### [address] Eosinophils/100 WBC (Bld) 0.8 % Normal . [facility] Comment on above: Performed By: #### E NATALIE, CBC, CMP #### [address] Erythrocyte distribution width (RBC) [Ratio] 14.0 % Normal 11.9-15.3 [facility] Comment on above: Performed By: #### E NATALIE, CBC, CMP #### [address] Hematocrit (Bld) [Volume fraction] 33.2 % Low 34.0-46.4 [facility] Comment on above: Performed By: #### E NATALIE, CBC, CMP #### [address] Hemoglobin (Bld) [Mass/Vol] 10.5 g/dL Low 11.8-15.4 [facility] Comment on above: Performed By: #### E NATALIE, CBC, CMP #### [address] Lymphocytes (Bld) [#/Vol] 1.0 10*3/uL Normal 1.00-4.8 [facility] Comment on above: Performed By: #### E NATALIE, CBC, CMP #### [address] Lymphocytes/100 WBC (Bld) 12.7 % Normal . [facility] Comment on above: Performed By: #### E NATALIE, CBC, CMP #### [address] MCH (RBC) [Entitic mass] 23.0 pg Low 24.7-34.3 [facility] Comment on above: Performed By: #### E NATALIE, CBC, CMP #### [address] MCV (RBC) [Entitic vol] 73.0 fL Low 80-100 [facility] Comment on above: Performed By: #### E NATALIE, CBC, CMP #### [address] Mean Corpuscular HGB Conc 31.5 g/dL Low 32.0-35.0 [facility] Comment on above: Performed By: #### E NATALIE, CBC, CMP #### [address] Monocytes (Bld) [#/Vol] 0.5 10*3/uL Normal 0.0-0.8 [facility] Comment on above: Performed By: #### E NATALIE, CBC, CMP #### [address] Monocytes/100 WBC (Bld) 17.93 % Normal 0.00-20.00 [facility] Comment on above: Performed By: #### E NATALIE, CBC, CMP #### [address] Monocytes/100 WBC (Bld) 6.8 % Normal . [facility] Comment on above: Performed By: #### E NATALIE, CBC, CMP #### [address] Neutrophils (Bld) [#/Vol] 6.2 10*3/uL Normal 1.8-7.7 [facility] Comment on above: Performed By: #### E NATALIE, CBC, CMP #### [address] Neutrophils/100 WBC (Bld) 79.0 % Normal . [facility] Comment on above: Performed By: #### E NATALIE, CBC, CMP #### [address] NRBC% 0.0 /100{WBC} Normal 0-0.5 [facility] Comment on above: Performed By: #### E NATALIE, CBC, CMP #### [address] Platelet mean volume (Bld) [Entitic vol] 9.3 fL Normal 6.3-10.7 [facility] Comment on above: Performed By: #### E NATALIE, CBC, CMP #### [address] Platelets (Bld) [#/Vol] 220 10*3/uL Normal 150-450 [facility] Comment on above: Performed By: #### E NATALIE, CBC, CMP #### [address] RBC (Bld) [#/Vol] 4.55 10*6/uL Normal 3.60-5.00 [facility] Comment on above: Performed By: #### E NATALIE, CBC, CMP #### [address] WBC (Bld) [#/Vol] 7.9 10*3/uL Normal 3.8-11.6 [facility] Comment on above: Performed By: #### E NATALIE, CBC, CMP #### [address] Comprehensive Metabolic Pane tommie 08-06-2024 Albumin [Mass/Vol] 4.0 g/dL Normal 3.5-5.7 [facility] Comment on above: Performed By: #### E NATALIE, CBC, CMP #### [address] Albumin/Globulin [Mass ratio] 1.3 {ratio} Normal [facility] Comment on above: Performed By: #### E NATALIE, CBC, CMP #### [facility] [address] ALP [Catalytic activity/Vol] 44 U/L Normal 34-104 [facility] Comment on above: Performed By: #### E NATALIE, CBC, CMP #### [facility] [address] ALT [Catalytic activity/Vol] 7 U/L Normal 7-52 [facility] Comment on above: Performed By: #### E NATALIE, CBC, CMP #### [facility] [address] Anion gap [Moles/Vol] 11.0 mmol/L Normal 6.0-15.[address] [facility] Comment on above: Performed By: #### E NATALIE, CBC, CMP #### [address] AST [Catalytic activity/Vol] 11 U/L Low 13-39 [facility] Comment on above: Performed By: #### E NATALIE, CBC, CMP #### [place] [address] [place] Bilirubin [Mass/Vol] 0.6 mg/dL Normal 0.3-1.0 [facility] Comment on above: Performed By: #### E NATALIE, CBC, CMP #### [facility] [address] [place] [address] [place] Calcium [Mass/Vol] 9.0 mg/dL Normal 8.6-10.3 [facility] Comment on above: Performed By: #### E NATALIE, CBC, CMP #### [facility] [address] [place] [address] [place] Chloride [Moles/Vol] 107 mmol/L Normal 98-107 [facility] Comment on above: Performed By: #### E NATALIE, CBC, CMP #### [place] [address] [place] CO2 [Moles/Vol] 22.7 mmol/L Normal 21.0-31.0 [facility] Comment on above: Performed By: #### E NATALIE, CBC, CMP #### [facility] [address] Creatinine [Mass/Vol] 0.64 mg/dL Normal 0.60-1.20 [facility] Comment on above: Performed By: #### E NATALIE, CBC, CMP #### [facility] [address] [place] [address] [place] Creatinine Clr Calc Pharmacy 119.09 Normal [facility] Comment on above: Result Comment: PERF ORMED BY: [place] [address] PATHOLOGIST BOTTLE FILLER TRISTEN MOSELEY M.D. Performed By: #### E NATALIE CBC, CMP #### [facility] [address] GFR/1.73 sq M.predicted MDRD (S/P/Bld) [Vol rate/Area] mL/min/{1.73_m2} Normal [facility] Comment on above: Performed By: #### E NATALIE CBC, CMP #### [facility] [address] Globulin (S) [Mass/Vol] 3.0 g/dL Normal [facility] Comment on above: Performed By: #### E NATALIE, CBC, CMP #### [facility] [address] Glucose [Mass/Vol] 98 mg/dL Normal 70-100 [facility] Comment on above: Result Comment: [place] Glucose Reference Range is dependent on time and content of last meal. Glucose of more than 200 mg/dL in a nonstressed, ambulatory subject supports the diagnosis of Diabetes Mellitus. ADA recommended reference range Performed By: #### E NATALIE, CBC, CMP #### [facility] [address] Potassium [Moles/Vol] 3.7 mmol/L Normal 3.5-5.1 [facility] Comment on above: Performed By: #### E NATALIE, CBC, CMP #### [facility] [address] [place] [id number] [place] Protein [Mass/Vol] 7.0 g/dL Normal 6.4-8.9 [facility] Comment on above: Performed By: #### E NATALIE, CBC, CMP #### [facility] [address] Sodium [Moles/Vol] 137 mmol/L Normal 136-145 [facility] Comment on above: Performed By: #### E NATALIE, CBC, CMP #### [facility] [address] [place] [address] [place] Urea nitrogen [Mass/Vol] 7 mg/dL Normal 7-25 [facility] Comment on above: Performed By: #### E NATALIE CBC, CMP #### [place] [address] [place] Creatinine [Mass/volume] in Serum or PlasmaOrdered By: Marvin Serrano on 08-06-2024 Creatinine [Mass/Vol] Creatinine [Mass/v olume] in Serum or Plasma 0.60-1.20 [facility] Dipstick and Microscopicon 1 10-06-2023 Appearance (U) Clear Normal Clear [facility] Comment on above: Order Comment: Name Collection Type:: Clean-Voided Midstream Performed By: #### A DDONUAPLUS, UHCG, URDS #### [place] [address] [place] Bacteria,Urine Rare Normal None Seen [facility] Comment on above: Order Comment: Name Collection Type:: Clean-Voided Midstream Performed By: #### A DDONUAPLUS, UHCG, URDS #### [facility] [address] [place] [phone] [place] Bilirubin,Urine Negative Normal Negative [facility] Comment on above: Order Comment: Name Collection Type:: Clean-Voided Midstream Performed By: #### A DDONUAPLUS, UHCG, URDS #### [facility] [address] [place] [phone] [place] Color (U) Light-Yellow Normal Yellow [facility] Comment on above: Order Comment: Name Collection Type:: Clean-Voided Midstream Performed By: #### A DDONUAPLUS, UHCG, URDS #### [address] Glucose Ql (U) Normal Normal Normal [facility] Comment on above: Order Comment: Name Collection Type:: Clean-Voided Midstream Performed By: #### A DDONUAPLUS, UHCG, URDS #### [place] [address] [place] Hyaline Casts,Urine None Normal 0-8 [facility] Comment on above: Order Comment: Name Collection Type:: Clean-Voided Midstream Performed By: #### A DDONUAPLUS, UHCG, URDS #### [address] Ketones Ql (U) 3+ High Negative [facility] Comment on above: Order Comment: Name Collection Type:: Clean-Voided Midstream Performed By: #### A DDONUAPLUS, UHCG, URDS #### [address] Leukocyte esterase Test strip Ql (U) Negative Normal Negative [facility] Comment on above: Order Comment: Name Collection Type:: Clean-Voided Midstream Performed By: #### A DDONUAPLUS, UHCG, URDS #### [address] Mucus,Urine Rare Normal [facility] Comment on above: Order Comment: Name Collection Type:: Clean-Voided Midstream Performed By: #### A DDONUAPLUS, UHCG, URDS #### [place] [address] [place] Nitrite,Urine Negative Normal Negative [facility] Comment on above: Order Comment: Name Collection Type:: Clean-Voided Midstream Performed By: #### A DDONUAPLUS, UHCG, URDS #### [address] Occult Blood,Urine Trace High Negative [facility] Comment on above: Order Comment: Name Collection Type:: Clean-Voided Midstream Performed By: #### A DDONUAPLUS, UHCG, URDS #### [address] pH (U) 7.0 [pH] Normal 5.0-9.0 [facility] Comment on above: Order Comment: Name Collection Type:: Clean-Voided Midstream Performed By: #### A DDONUAPLUS, UHCG, URDS #### [address] Protein,Urine Negative Normal Negative [facility] Comment on above: Order Comment: Name Collection Type:: Clean-Voided Midstream Performed By: #### A DDONUAPLUS, UHCG, URDS #### [address] RBC,Urine 1 [HPF] Normal 0-4 [facility] Comment on above: Order Comment: Name Collection Type:: Clean-Voided Midstream Performed By: #### A DDONUAPLUS, UHCG, URDS #### [address] Specificy [place],Urine 1.016 Normal 1.001-1.03 0 [facility] Comment on above: Order Comment: Name Collection Type:: Clean-Voided Midstream Performed By: #### A DDONUAPLUS, UHCG, URDS #### [address] Squamous Epithelial Cell,Urine 5 [HPF] High 0-2 [facility] Comment on above: Order Comment: Name Collection Type:: Clean-Voided Midstream Performed By: #### A DDONUAPLUS, UHCG, URDS #### [address] Urobilinogen,Urine Normal Normal Normal [facility] Comment on above: Order Comment: Name Collection Type:: Clean-Voided Midstream Performed By: #### A DDONUAPLUS, UHCG, URDS #### [address] WBC,Urine 1 [HPF] Normal 0-4 [facility] Comment on above: Order Comment: Name Collection Type:: Clean-Voided Midstream Performed By: #### A DDONUAPLUS, UHCG, URDS #### [place] [address] [place] Drug Screen,Urineon 08-06-20 24 Amphetamine Screen,Urine Negative Normal Negative [facility] Comment on above: Performed By: #### A DDONUAPLUS, UHCG, URDS #### [address] Barbiturate Screen,Urine Negative Normal Negative [facility] Comment on above: Performed By: #### A DDONUAPLUS, UHCG, URDS #### [address] Benzodiazepines Screen,Urine Negative Normal Negative [facility] Comment on above: Performed By: #### A DDONUAPLUS, UHCG, URDS #### [address] Cannabinoid Screen,Urine Negative Normal Negative [facility] Comment on above: Result Comment: Thes e are unconfirmed results and should not be used for legal purposes. Drug Cut-Off Concentration: AMPH 1000 ng/mL BEKA 200 ng/mL CALDERON 200 ng/mL COCM 300 ng/mL OP 300 ng/mL PCP 25 ng/mL THC 20 ng/mL PERFORMED BY: [place] [address] PATHOLOGIST BOTTLE FILLER TRISTEN MOSELEY M.D. Performed By: #### A DDONUAPLUS, UHCG, URDS #### [place] [address] [place] Cocaine Screen,Urine Negative Normal Negative [facility] Comment on above: Performed By: #### A DDONUAPLUS, UHCG, URDS #### [address] Opiate Screen,Urine Negative Normal Negative [facility] Comment on above: Performed By: #### A DDONUAPLUS, UHCG, URDS #### [facility] [address] Phencyclidine Screen,Urine Negative Normal Negative [facility] Comment on above: Performed By: #### A DDONUAPLUS, UHCG, URDS #### [facility] [address] Eosinophils Auto (Bld) [#/Vo l]Ordered By: Marvin Serrano on 08-06-2024 Eosinophils (Bld) [#/Vol] Automated eosinophil count 0.0-0.45 [facility] Eosinophils/100 WBC Auto (Bl d)Ordered By: Marvin Serrano on 08-06-2024 Eosinophils/100 WBC (Bld) Automated eosinophil % . [facility] Epithelial cells.squamous [# /area] in Urine sediment by Automated countOrdered By: Marvin Serrano on 08-06-2024 Epithelial cells.squamous Auto (Urine sed) [#/Area] Epithelial cells.squamous [#/area] in Urine sediment by Automated count High 0-2 [facility] Erythrocyte distribution wid th Auto (RBC) [Ratio]Ordered By: Marvin Serrano on 08-06-2024 Erythrocyte distribution width (RBC) [Ratio] Erythrocyte distribution width [Ratio] by Automated count 11.9-15.3 [facility] Erythrocytes [#/area] in Uri ne sediment by Automated countOrdered By: Marvin Serrano on 08-06-2024 RBC Auto (Urine sed) [#/Area] Erythrocytes [#/area] in Urine sediment by Automated count 0-4 [facility] Ethanol [Mass/volume] in Ser um or PlasmaOrdered By: Marvin Serrano on 08-06-2024 Ethanol [Mass/Vol] Ethanol [Mass/volume ] in Serum or Plasma [facility] Comment on above: Test not performed Ethyl Alcohol Profileon 07-19 Ethanol [Mass/Vol] mg/dL Normal [facility] Comment on above: Performed By: #### E NATALIE, CBC, CMP #### [facility] [address] Percent Ethanol Not performed Normal [facility] Comment on above: Result Comment: PERF ORMED BY: [facility] [address] [place] [address] PATHOLOGIST BOTTLE FILLER TRISTEN MOSELEY M.D. Performed By: #### E NATALIE, CBC, CMP #### [facility] [address] [place] [id number] [facility] Globulin Calc (S) [Mass/Vol] Ordered By: Marvni Serrano on 08-06-2024 Globulin (S) [Mass/Vol] Serum globulin measurement by calculation (mass/volume) [facility] Glucose [Mass/volume] in Ser um or PlasmaOrdered By: Marvin Serrano on 08-06-2024 Glucose [Mass/Vol] Glucose [Mass/volume ] in Serum or Plasma 70-100 [facility] Comment on above: ADA recommended refe rence rangeRandom Glucose Reference Range is dependent on time and content of last meal. Glucose of more than 200 mg/dL in a nonstressed, ambulatory subject supports the diagnosis of Diabetes Mellitus. Glucose [Mass/volume] in Uri ne by Test stripOrdered By: Marvin Serrano on 08-06-2024 Glucose Test strip (U) [Mass/Vol] Glucose [Mass/volume] in Urine by Test strip Normal [facility] HCG ( test) IA.rapi d Ql (U)Ordered By: Marvin Serrano on 08-06-2024 HCG ( test) Ql (U) Urine human chorionic gonadotropin (hCG) detection by immunoassay High [facility] HCG,Quantitativeon HCG,Quantitative 91474.00 m[iU]/mL Normal [facility] Comment on above: Result Comment: Appr oximate Approximate hCG Gestational Age Range (mIU/ml) (weeks) 0.2-1 5-50 1-2 50-500 2-3 100-5,000 3-4 500-10,000 4-5 1,000-50,000 5-6 10,000-100,000 6-8 15,000-200,000 8-12 10,000-100,000 PERFORMED BY: [place] [id number] PATHOLOGIST BOTTLE FILLER TRISTEN MOSELEY M.D. Performed By: #### E NATALIE, CBC, CMP #### [facility] [address] [place] [address] [place] HCG,Urineon 08-06-2024 Beta HCG ( test) Ql (U) Positive High [facility] Comment on above: Order Comment: Name Collection Type:: Clean-Voided Midstream Result Comment: PERF ORMED BY: [address] [place] [address] PATHOLOGIST BOTTLE FILLER TRISTEN MOSELEY M.D. Performed By: #### A DDONUAPLUS, UHCG, URDS #### [facility] [address] Hematocrit Auto (Bld) [Volum e fraction]Ordered By: Marvin Serrano on 08-06-2024 Hematocrit (Bld) [Volume fraction] Hematocrit [Volume Fraction] of Blood by Automated count Low 34.0-46.4 [facility] Hemoglobin Test strip Ql (U) Ordered By: Marvin Serrano on 08-06-2024 Hemoglobin Ql (U) Hemoglobin [Presence ] in Urine by Test strip High Negative [facility] Hemoglobin [Mass/volume] in BloodOrdered By: Marvin Serrano on 08-06-2024 Hemoglobin (Bld) [Mass/Vol] Hemoglobin [Mass/volume] in Blood Low 11.8-15.4 [facility] Hyaline casts [#/area] in Ur ine sediment by Automated countOrdered By: Marvin Serrano on 08-06-2024 Hyaline casts Auto (Urine sed) [#/Area] Hyaline casts [#/area] in Urine sediment by Automated count 0-8 [facility] Ketones Test strip Ql (U)Ord ered By: Marvin Serrano on 08-06-2024 Ketones Ql (U) Ketones [Presence] i n Urine by Test strip High Negative [facility] Leukocyte esterase [Presence ] in Urine by Test stripOrdered By: Marvin Serrano on 08-06-2024 Leukocyte esterase Test strip Ql (U) Leukocyte esterase [Presence] in Urine by Test strip Negative [facility] Leukocytes [#/area] in Urine sediment by Automated countOrdered By: Marvin Serrano on 08-06-2024 WBC Auto (Urine sed) [#/Area] Leukocytes [#/area] in Urine sediment by Automated count 0-4 [facility] Leukocytes [#/volume] correc delmer for nucleated erythrocytes in Blood by Automated counOrdered By: Marvin Serrano on 08-06-2024 WBC corrected for nucl RBC Auto (Bld) [#/Vol] Leukocytes [#/volume] corrected for nucleated erythrocytes in Blood by Automated coun 3.8-11.6 [facility] Lipid Panelon 08-06-2024 Cholesterol [Mass/Vol] 128 mg/dL Low 140-200 [facility] Comment on above: Order Comment: Comme nt use ER blood Result Comment: Chol less than 200 mg/dl low risk Chol 201-239 mg/dl borderline risk Chol 240 mg/dl and greater high risk Performed By: #### E NATALIE, CBC, CMP #### [facility] [address] [place] [id number] [facility] Cholesterol in HDL [Mass/Vol] 59 mg/dL Normal 23-92 [facility] Comment on above: Order Comment: Comme nt use ER blood Result Comment: HDL CHOL ATP-III CLASSIFICATION Cardiovascular Risk HDL > or equal to 60 mg/dL LOW HDL < 40 mg/dL HIGH Performed By: #### E NATALIE, CBC, CMP #### [facility] [address] [place] [address] [place] Cholesterol.total/Chol esterol in HDL [Mass ratio] 2.2 {ratio} Normal <5.0 [facility] Comment on above: Order Comment: Comme nt use ER blood Performed By: #### E NATALIE, CBC, CMP #### [facility] [address] [place] [address] [place] LDL Cholesterol,Calculated 63 mg/dL Normal 0-100 [facility] Comment on above: Order Comment: Comme nt use ER blood Result Comment: LDL ATP III CLASSIFICATION LDL less than 100 mg/dL Optimal LDL 100-129 mg/dL Near or above optimal LDL 130-159 mg/dL Borderline high LDL 160-189 mg/dL High LDL greater than 189 mg/dL Very high Performed By: #### E NATALIE, CBC, CMP #### [facility] [address] [place] [address] [place] Triglyceride w/Reflex 29 mg/dL Normal 0-149 [facility] Comment on above: Order Comment: Comme nt use ER blood Result Comment: TRIG ATP III CLASSIFICATION TRIG less than 150 mg/dL Normal TRIG 150-199 mg/dL Borderline high TRIG 200-500 mg/dL High TRIG greater than 500 mg/dL Very high Standard traceable to the Center for Disease Conrtrol and Prevention (CDC) test method. Performed By: #### E NATALIE, CBC, CMP #### [facility] [address] VLDL CHOLESTEROL 5 mg/dL Normal [facility] Comment on above: Order Comment: Comme nt use ER blood Performed By: #### E NATALEI, CBC, CMP #### [facility] [address] [place] [address] [place] Lymphocytes Auto (Bld) [#/Vo l]Ordered By: Marvin Serrano on 08-06-2024 Lymphocytes (Bld) [#/Vol] Lymphocytes [#/volume] in Blood by Automated count 1.00-4.8 [facility] Lymphocytes/100 WBC Auto (Bl d)Ordered By: Marvin Serrano on 08-06-2024 Lymphocytes/100 WBC (Bld) Lymphocytes/100 leukocytes in Blood by Automated count . [facility] MCH Auto (RBC) [Entitic mass ]Ordered By: Marvin Serrano on 08-06-2024 MCH (RBC) [Entitic mass] MCH [Entitic mass] by Automated count Low 24.7-34.3 [facility] MCHC Auto (RBC) [Mass/Vol]Or dered By: Marvin Serrano on 08-06-2024 MCHC (RBC) [Mass/Vol] MCHC [Mass/volume] by Automated count Low 32.0-35.0 [facility] MCV Auto (RBC) [Entitic vol] Ordered By: Marvin Serrano on 08-06-2024 MCV (RBC) [Entitic vol] MCV [Entitic volume] by Automated count Low 80-100 [facility] Monocyte distribution width [Entitic volume] in Blood by AutomatedOrdered By: Marvin Serrano on 08-06-2024 Monocyte distribution width Auto (Bld) [Entitic vol] Monocyte distribution width [Entitic volume] in Blood by Automated 0.00-20.00 [facility] Monocytes Auto (Bld) [#/Vol] Ordered By: Marvin Serrano on 08-06-2024 Monocytes (Bld) [#/Vol] Automated blood monocyte count 0.0-0.8 [facility] Monocytes/100 WBC Auto (Bld) Ordered By: Marvin Serrano on 08-06-2024 Monocytes/100 WBC (Bld) Automated monocyte % . [facility] Mucus [Presence] in Urine by AutomatedOrdered By: Marvin Serrano on 08-06-2024 Mucus Auto Ql (U) Mucus [Presence] in Urine by Automated [facility] Neutrophils Auto (Bld) [#/Vo l]Ordered By: Marvin Serrano on 08-06-2024 Neutrophils (Bld) [#/Vol] Neutrophils [#/volume] in Blood by Automated count 1.8-7.7 [facility] Neutrophils/100 WBC Auto (Bl d)Ordered By: Marvin Serrano on 08-06-2024 Neutrophils/100 WBC (Bld) Automated neutrophil % . [facility] Nitrite Test strip Ql (U)Ord ered By: Marvin Serrano on 08-06-2024 Nitrite Ql (U) Nitrite [Presence] i n Urine by Test strip Negative [facility] No Panel InformationOrdered By: Marvin Serrano on 08-06-2024 Estimated GFR (CKD-EPI) > 60.0 mL/Min [facility] Creatinine Clearance (Chem 119.09 [facility] Nucleated erythrocytes [Pres ence] in Blood by Automated countOrdered By: Marvin Serrano on 08-06-2024 Nucleated RBC Auto Ql (Bld) Nucleated erythrocytes [Presence] in Blood by Automated count 0-0.5 [facility] Opiates [Presence] in Urine by Screen methodOrdered By: Marvin Serrano on 08-06-2024 Opiates Screen Ql (U) Opiates [Presence] in Urine by Screen method Negative [facility] Phencyclidine Screen Ql (U)O rdered By: Marvin Serrano on 08-06-2024 Phencyclidine Ql (U) Phencyclidine [Pres ence] in Urine by Screen method Negative [facility] Platelet mean volume Auto (B ld) [Entitic vol]Ordered By: Marvin Serrano on 08-06-2024 Platelet mean volume (Bld) [Entitic vol] Platelet mean volume [Entitic volume] in Blood by Automated count 6.3-10.7 [facility] Platelets Auto (Bld) [#/Vol] Ordered By: Marvin Serrano on 08-06-2024 Platelets (Bld) [#/Vol] Platelets [#/volume] in Blood by Automated count 150-450 [facility] Potassium [Moles/volume] in Serum or PlasmaOrdered By: Marvin Serrano on 08-06-2024 Potassium [Moles/Vol] Potassium [Moles/v olume] in Serum or Plasma 3.5-5.1 [facility] Protein Test strip (U) [Mass /Vol]Ordered By: Marvin Serrano on 08-06-2024 Protein (U) [Mass/Vol] Protein [Mass/vol ume] in Urine by Test strip Negative [facility] Protein [Mass/volume] in Ser um or PlasmaOrdered By: Marvin Serrano on 08-06-2024 Protein [Mass/Vol] Protein [Mass/volume ] in Serum or Plasma 6.4-8.9 [facility] RBC Auto (Bld) [#/Vol]Ordere d By: Marvin Serrano on 08-06-2024 RBC (Bld) [#/Vol] Erythrocytes [#/volu me] in Blood by Automated count 3.60-5.00 [facility] Serum or plasma albumin/glob ulin mass ratioOrdered By: Marvin Serrano on 08-06-2024 Albumin/Globulin [Mass ratio] Serum or plasma albumin/globulin mass ratio [facility] Serum or plasma anion gap de terminationOrdered By: Marvin Serrano on 08-06-2024 Anion gap [Moles/Vol] Serum or plasma an ion gap determination 6.0-15.0 [facility] Sodium [Moles/volume] in Ser um or PlasmaOrdered By: Marvin Serrano on 08-06-2024 Sodium [Moles/Vol] Sodium [Moles/volume ] in Serum or Plasma 136-145 [facility] Specific gravity Test strip (U) [Rel density]Ordered By: Marvin Serrano on 08-06-2024 Specific gravity (U) [Rel density] Specific gravity of Urine by Test strip 1.001-1.03 0 [facility] Thyroid Stim Hormone w/Rflxo n 08-06-2024 Thyroid Stim Hormone w/Rflx 1.33 u[iU]/mL Normal 0.45-5.33 [facility] Comment on above: Order Comment: Comme nt use ER blood Performed By: #### E NATALIE, CBC, CMP #### [facility] [address] [place] [id number] [facility] Urea nitrogen [Mass/volume] in Serum or PlasmaOrdered By: Marvin Serrano on 08-06-2024 Urea nitrogen [Mass/Vol] Urea nitrogen [Mass/volume] in Serum or Plasma 7- [facility] Urobilinogen Test strip (U) [Mass/Vol]Ordered By: Marvin Serrnao on 08-06-2024 Urobilinogen (U) [Mass/Vol] Urobilinogen [Mass/volume] in Urine by Test strip Normal [facility] Vitamin D 25 Hydroxy Totalon 08-06-2024 Vitamin D 25 Hydroxy Total 9.7 ng/mL Low 30-100 [facility] Comment on above: Order Comment: Comme nt use ER blood Result Comment: ALEXIA MIN D STATUS 25(OH)VITAMIN D RANGE (ng/mL) Deficient <20 Insufficient 20 to <30 Sufficient 30 to 100 Reference: Pam MF,Abelardo NC, Cj GARZA, et al. Evaluation,treatment, and prevention of vitamin D deficiency; an Endocrine Society clinical practice guideline. JCEM. 2010; 96(7):1911-30. PERFORMED BY: [place] [address] PATHOLOGIST BOTTLE FILLER TRISTEN MOSELEY M.D. Performed By: #### E NATALIE, CBC, CMP #### [facility] [address] [place] [id number] [facility] WBC Auto (Bld) [#/Vol]Ordere d By: Marvin Serrano on 08-06-2024 WBC (Bld) [#/Vol] Leukocytes [#/volume ] in Blood by Automated count 3.8-11.6 [facility] pH Test strip (U)Ordered By: Marvin Serrano on 08-06-2024 pH (U) pH of Urine by Test strip 5.0-9.0 [facility] PREG QUANT HCGon 024 HCG QUANTITATIVE 4763 mIU/mL [facility] Comment on above: 5-50 0.2-1 WEEK 50-500 1-2 WEEKS 100-5,000 2-3 WEEKS 500-10,000 3-4 WEEKS 1,000-50,000 4-5 WEEKS 10,000-100,000 5-6 WEEKS 15,000-200,000 6-8 WEEKS 10,000-100,000 [facility] HCGon 11-16-2 024 HCG QUANTITATIVE 2355 mIU/mL [facility] Comment on above: 5-50 0.2-1 WEEK 50-500 1-2 WEEKS 100-5,000 2-3 WEEKS 500-10,000 3-4 WEEKS 1,000-50,000 4-5 WEEKS 10,000-100,000 5-6 WEEKS 15,000-200,000 6-8 WEEKS 10,000-100,000 2-[facility] Alanine aminotransferase [En zymatic activity/volume] in Serum or PlasmaOrdered By: Sarah Dodd on 07-14-2024 ALT [Catalytic activity/Vol] 9 U/L Normal [facility] Comment on above: Performed By: #### A JAROCHO, [facility], URDS #### [address] ALT [Catalytic activity/Vol] Alanine aminotransferase [Enzymatic activity/volume] in Serum or Plasma [facility] Albumin [Mass/volume] in Ser um or Plasma by Bromocresol green (BCG) dye binding methoOrdered By: Sarah Dodd on 07-14-2024 Albumin BCG dye [Mass/Vol] 4.1 g/dL 3.5-5.7 [facility] Albumin BCG dye [Mass/Vol] Albumin [Mass/volume] in Serum or Plasma by Bromocresol green (BCG) dye binding metho 3.5-5.7 [facility] Alkaline phosphatase [Enzyma tic activity/volume] in Serum or PlasmaOrdered By: Sarah Dodd on 07-14-2024 ALP [Catalytic activity/Vol] 48 U/L Normal 34-104 [facility] Comment on above: Performed By: #### A JAROCHO [facility], URDS #### [facility] [address] [place] [address] ALP [Catalytic activity/Vol] Alkaline phosphatase [Enzymatic activity/volume] in Serum or Plasma 34-104 [facility] Appearance of UrineOrdered B y: Sarah Brown on 07-14-2024 Appearance (U) Urine appearance Clear [facility] Aspartate aminotransferase [ Enzymatic activity/volume] in Serum or PlasmaOrdered By: Sarah Dodd on 07-14-2024 AST [Catalytic activity/Vol] 14 U/L Normal 13-39 [facility] Comment on above: Performed By: #### A JAROCHO KATHERYN, URDS #### [address] AST [Catalytic activity/Vol] Aspartate aminotransferase [Enzymatic activity/volume] in Serum or Plasma 1339 [facility] Automated basophil %Ordered By: Sarah Dodd on 07-14-2024 Basophils/100 WBC (Bld) 0.4 % Normal . [facility] Comment on above: Performed By: #### A MYLES AVENDAÑO, URDS #### [address] Automated basophil countOrde red By: Sarah Dodd on 07-14-2024 Basophils (Bld) [#/Vol] 0.0 10*3/uL Normal 0.0-0.2 [facility] Comment on above: Result Comment: PERF ORMED BY: [place] [address] PATHOLOGIST BOTTLE FILLER CLAU ZAVALA M.D. Performed By: #### A MYLES AVENDAÑO, URDS #### [address] Automated blood monocyte cou ntOrdered By: Sarha Dodd on 07-14-2024 Monocytes (Bld) [#/Vol] 0.5 10*3/uL Normal 0.0-0.8 [facility] Comment on above: Performed By: #### A JAROCHO KATHERYN, URDS #### [address] [place] [address] [place] Automated eosinophil %Ordere d By: Sarah Dodd on 07-14-2024 Eosinophils/100 WBC (Bld) 0.6 % Normal . [facility] Comment on above: Performed By: #### A DDONUAJORGE LOAIZACG, URDS #### [address] Automated eosinophil countOr dered By: Sarah Dodd on 07-14-2024 Eosinophils (Bld) [#/Vol] 0.0 10*3/uL Normal 0.0-0.45 [facility] Comment on above: Performed By: #### A MYLES AVENDAÑO, URDS #### [address] Automated monocyte %Ordered By: Sarah Dodd on 07-14-2024 Monocytes/100 WBC (Bld) 12.3 % Normal . [facility] Comment on above: Performed By: #### A DDONMYLES JIMÉNEZ, URDS #### [address] Automated neutrophil %Ordere d By: Sarah Dodd on 07-14-2024 Neutrophils/100 WBC (Bld) 63.5 % Normal . [facility] Comment on above: Performed By: #### A DDONJORGE JIMÉNEZCG, URDS #### [address] Bacteria [Presence] in Urine by AutomatedOrdered By: Sarah Dodd on 07-14-2024 Bacteria Auto Ql (U) Rare [HPF] None Seen [facility] Bacteria Auto Ql (U) Bacteria [Presence] in Urine by Automated None Seen [facility] Basic Metabolic Panelon 06-18 Creatinine Clr Calc Pharmacy 107.14 Normal [facility] Comment on above: Performed By: #### A DDONUAPLUS, UHCG, URDS #### [address] GFR/1.73 sq M.predicted MDRD (S/P/Bld) [Vol rate/Area] mL/min/{1.73_m2} Normal [facility] Comment on above: Performed By: #### A JAROCHO [facility], URDS #### [facility] [address] Basophils Auto (Bld) [#/Vol] Ordered By: Sarah Dodd on 07-14-2024 Basophils (Bld) [#/Vol] Automated basophil count 0.0-0.2 [facility] Basophils/100 WBC Auto (Bld) Ordered By: Sarah Dodd on 07-14-2024 Basophils/100 WBC (Bld) Automated basophil % . [facility] Bilirubin Test strip Ql (U)O rdered By: Sarah Dodd on 07-14-2024 Bilirubin Ql (U) Negative Negative [facility] Bilirubin Ql (U) Bilirubin.total [Pre sence] in Urine by Test strip Negative [facility] Bilirubin.direct [Mass/volum e] in Serum or PlasmaOrdered By: Sarah Dodd on 07-14-2024 Bilirubin.direct [Mass/Vol] 0.10 mg/dL 0.03-0.18 [facility] Bilirubin.direct [Mass/Vol] Bilirubin.direct [Mass/volume] in Serum or Plasma 0.03-0.18 [facility] Bilirubin.total [Mass/volume ] in Serum or PlasmaOrdered By: Sarah Dodd on 07-14-2024 Bilirubin [Mass/Vol] 0.4 mg/dL Normal 0.3-1.0 [facility] Comment on above: Performed By: #### A JAROCHO [facility], URDS #### [facility] [address] Bilirubin [Mass/Vol] Bilirubin.total [Mass/volume] in Serum or Plasma 0.3-1.0 [facility] COVID CepheidOrdered By: Macarena Dodd on 07-14-2024 SARS-CoV-2 (COVID-19) Ab IA Ql Negative Negative [facility] Comment on above: This is a duplicate [employer] Xpert Xpress CoV-2/Flu/RSV Plus RNA by RT-PCR result to be used for statistical tracking purpose only. SARS-CoV-2 (COVID-19) RNA HIRAM+probe Ql (Unsp spec) [facility] COVID Cepheid NegativeOrdere d By: Sarah Yousif on 07-14-2024 SARS-CoV-2 (COVID-19) Ab IA Ql COVID Cepheid Negative [facility] Comment on above: This is a duplicate Cep[employer] Xpert Xpress CoV-2/Flu/RSV Plus RNA by RT-PCR result to be used for statistical tracking purpose only. COVID-19 / Flu A/B / RSV PCR [...] or Cepheid Disclaimer revoked sooner. PERFORMED BY: [place] [address] PATHOLOGIST BOTTLE FILLER CLAU ZAVALA M.D. Normal [facility] Comment on above: Performed By: #### C EPHEID NEG, COVID19 FLU RSV #### [address] abdomen pelvis w conon CT abdomen pelvis w con [facility] [place] [address] [place] [address] CT Scan Report Signed Patient: Leandra Fonseca MR#: [id number] : 1990 Acct:[id number] Age/Sex: 34 / F ADM Date: 07/14/24 Loc: ER Room: Type: [facility] ER Attending Dr: Copies to: DO Lety [...] seen. Impression dictated by: Leroy Mancera Jr., D.O.07/14/2024 2:43 PM Dictation Location: [place] [address] Transcribed By: [facility] 07/14/24 1443 Dictated By: Leroy Mancera Jr, DO 07/14/24 1438 Signed By: 07/14/24 1443 Normal [facility] Calcium [Mass/volume] in Ser um or PlasmaOrdered By: Sarah Dodd on 07-14-2024 Calcium [Mass/Vol] 8.9 mg/dL Normal 8.6-10.3 [facility] Comment on above: Performed By: #### A JAROCHO KATHERYN, URJOHN #### [facility] [address] [place] [address] Calcium [Mass/Vol] Calcium [Mass/volume ] in Serum or Plasma 8.6-10.3 [facility] Carbon dioxide, total [Moles /volume] in Serum or PlasmaOrdered By: Sarah Dodd on 07-14-2024 CO2 [Moles/Vol] 25.2 mmol/L Normal 21.0-31.0 [facility] Comment on above: Performed By: #### A MYLES AVENDAÑO, URDS #### [facility] [address] [place] [address] CO2 [Moles/Vol] Carbon dioxide, tota l [Moles/volume] in Serum or Plasma 21.0-31.0 [facility] Cepheid COVID PCR Negativeon 07-14-2024 SARS-CoV-2 (COVID-19) RNA HIRAM+probe Ql (Unsp spec) Negative Normal Negative [facility] Comment on above: Result Comment: This is a duplicate [employer] Xpert Xpress CoV-2/Flu/RSV Plus RNA by RT-PCR result to be used for statistical tracking purpose only. PERFORMED BY: [place] [address] PATHOLOGIST BOTTLE FILLER CLAU ZAVALA M.D. Performed By: #### C EPHEID NEG, COVID19 FLU RSV #### [place] [address] [place] Chloride [Moles/volume] in S salas or PlasmaOrdered By: Sarah Dodd on 07-14-2024 Chloride [Moles/Vol] 105 mmol/L Normal 98-107 [facility] Comment on above: Performed By: #### A DDONUAPLUS, ESDRASG, URDS #### [place] [address] [place] Chloride [Moles/Vol] Chloride [Moles/vol ume] in Serum or Plasma 98-107 [facility] Color Auto (U)Ordered By: Gopal Dodd on 07-14-2024 Color (U) Color of Urine by Auto Yellow Fi [facility] Color of Urine by AutoOrdere d By: Sarah Dodd on 07-14-2024 Color (U) Yellow Normal Yellow [facility] Comment on above: Order Comment: Name Collection Type:: Clean-Voided Midstream Performed By: #### A DDONUAPLUS, JORGECG, URDS #### [address] Complete Blood Count Auto Di ffon 07-14-2024 Mean Corpuscular HGB Conc 32.2 g/dL Normal 32.0-35.0 [facility] Comment on above: Performed By: #### A DDONUAPLUS, UHCG, URDS #### [place] [id number] [place] Monocytes/100 WBC (Bld) 20.43 % High 0.00-20.00 [facility] Comment on above: Result Comment: For adults in ED, MDW > 20.0 may be associated with a higher risk of sepsis during the first 12 hrs of hospital admission Performed By: #### A DDONUAPLUS, UHCG, URDS #### [facility] [address] NRBC% 0.1 /100{WBC} Normal 0-0.5 [facility] Comment on above: Performed By: #### A DDONUAPLUS, UHCG, URDS #### [address] Creatinine [Mass/volume] in Serum or PlasmaOrdered By: Sarah Dodd on 07-14-2024 Creatinine [Mass/Vol] 0.71 mg/dL Normal 0.60-1.20 [facility] Comment on above: Performed By: #### A DDONUAPLUS, UHCG, URDS #### [address] Creatinine [Mass/Vol] Creatinine [Mass/v olume] in Serum or Plasma 0.60-1.20 [facility] Dipstick and Microscopicon 1 Bacteria,Urine Rare Normal None Seen [facility] Comment on above: Order Comment: Name Collection Type:: Clean-Voided Midstream Performed By: #### A DDONUAPLUS, UHCG, URDS #### [address] Bilirubin,Urine Negative Normal Negative [facility] Comment on above: Order Comment: Name Collection Type:: Clean-Voided Midstream Performed By: #### A DDONUAPLUS, UHCG, URDS #### [place] [address] [place] Glucose Ql (U) Normal Normal Normal [facility] Comment on above: Order Comment: Name Collection Type:: Clean-Voided Midstream Performed By: #### A DDONUAPLUS, UHCG, URDS #### [place] [address] [place] Hyaline Casts,Urine None Normal 0-8 [facility] Comment on above: Order Comment: Name Collection Type:: Clean-Voided Midstream Performed By: #### A DDONUAPLUS, UHCG, URDS #### [address] Mucus,Urine 2+ Critically abnormal [facility] Comment on above: Order Comment: Name Collection Type:: Clean-Voided Midstream Performed By: #### A DDONUAPLUS, UHCG, URDS #### [address] Nitrite,Urine Negative Normal Negative [facility] Comment on above: Order Comment: Name Collection Type:: Clean-Voided Midstream Performed By: #### A DDONUAPLUS, UHCG, URDS #### [address] Occult Blood,Urine 1+ High Negative [facility] Comment on above: Order Comment: Name Collection Type:: Clean-Voided Midstream Performed By: #### A DDONUAPLUS, UHCG, URDS #### [address] RBC,Urine 20-49 High 0-4 [facility] Comment on above: Order Comment: Name Collection Type:: Clean-Voided Midstream Performed By: #### A DDONUAPLUS, UHCG, URDS #### [address] Specificy [place],Urine 1.030 Normal 1.001-1.03 0 [facility] Comment on above: Order Comment: Name Collection Type:: Clean-Voided Midstream Performed By: #### A DDONUAPLUS, UHCG, URDS #### [place] [address] [place] Squamous Epithelial Cell,Urine 5-9 High 0-2 [facility] Comment on above: Order Comment: Name Collection Type:: Clean-Voided Midstream Performed By: #### A DDONUAPLUS, UHCG, URDS #### [address] Urobilinogen,Urine 3 mg/dL High Normal [facility] Comment on above: Order Comment: Name Collection Type:: Clean-Voided Midstream Performed By: #### A DDONUAPLUS, UHCG, URDS #### [facility] [address] [place] [address] [place] WBC,Urine 5-9 High 0-4 [facility] Comment on above: Order Comment: Name Collection Type:: Clean-Voided Midstream Performed By: #### A DDONUAPLUS, UHCG, URDS #### [facility] [address] ECG 12 lead ECGon 07-14-2024 ECG 12 lead ECG [facility] [address] [place] [address] [place] [address] Electrocardiograph Report Signed Patient: Leandra Fonseca MR#: [id number] : [id number] Acct:[id number] Age/Sex: 34 / F ADM Date: 07/14/24 Loc: ER Room: Type: [facility] ER Attending Dr: Ordering Provider: Sarah Dodd [...] sinus rhythm Confirmed by Glenroy Weldon DO ([id number]) on 07/14/2024 8:07:49 PM Referred By: Electronically Signed By: Glenroy Weldon DO Transcribed By: MUS Signed By Glenroy Weldon DO 2006 Normal [facility] Eosinophils Auto (Bld) [#/Vo l]Ordered By: Sarah Dodd on 07-14-2024 Eosinophils (Bld) [#/Vol] Automated eosinophil count 0.0-0.45 [facility] Eosinophils/100 WBC Auto (Bl d)Ordered By: Sarah Dodd on 07-14-2024 Eosinophils/100 WBC (Bld) Automated eosinophil % . [facility] Epithelial cells.squamous [# /area] in Urine sediment by Automated countOrdered By: Sarah Dodd on 07-14-2024 Epithelial cells.squamous Auto (Urine sed) [#/Area] 5-9 [HPF] High 0-2 [facility] Epithelial cells.squamous Auto (Urine sed) [#/Area] Epithelial cells.squamous [#/area] in Urine sediment by Automated count High 0-2 [facility] Erythrocyte distribution wid th Auto (RBC) [Ratio]Ordered By: Sarah Dodd on 07-14-2024 Erythrocyte distribution width (RBC) [Ratio] Erythrocyte distribution width [Ratio] by Automated count 11.9-15.3 [facility] Erythrocyte distribution wid th [Ratio] by Automated countOrdered By: Sarah Dodd on 07-14-2024 Erythrocyte distribution width (RBC) [Ratio] 13.7 % Normal 11.9-15.3 [facility] Comment on above: Performed By: #### A JAROCHO, [facility], URDS #### [facility] [address] Erythrocytes [#/area] in Uri ne sediment by Automated countOrdered By: Sarah Dodd on 07-14-2024 RBC Auto (Urine sed) [#/Area] 20-49 [HPF] High 0-4 [facility] RBC Auto (Urine sed) [#/Area] Erythrocytes [#/area] in Urine sediment by Automated count High 0-4 [facility] Erythrocytes [#/volume] in B lood by Automated countOrdered By: Sarah Dodd on 07-14-2024 RBC (Bld) [#/Vol] 4.57 10*6/uL Normal 3.60-5.00 [facility] Comment on above: Performed By: #### A JAROCHO, [facility], URDS #### [facility] [address] [place] [address] Globulin Calc (S) [Mass/Vol] Ordered By: Sarah Dodd on 07-14-2024 Globulin (S) [Mass/Vol] Serum globulin measurement by calculation (mass/volume) [facility] Glucose [Mass/volume] in Ser um or PlasmaOrdered By: Sarah Dodd on 07-14-2024 Glucose [Mass/Vol] 88 mg/dL Normal 70-100 [facility] Comment on above: ADA recommended refe rence rangeRandom Glucose Reference Range is dependent on time and content of last meal. Glucose of more than 200 mg/dL in a nonstressed, ambulatory subject supports the diagnosis of Diabetes Mellitus. Result Comment: [place] Glucose Reference Range is dependent on time and content of last meal. Glucose of more than 200 mg/dL in a nonstressed, ambulatory subject supports the diagnosis of Diabetes Mellitus. ADA recommended reference range Performed By: #### A DDDOMINGOUAJOSSE, MYLES, URDS #### [address] Glucose [Mass/Vol] Glucose [Mass/volume ] in Serum or Plasma 70-100 [facility] Comment on above: ADA recommended refe rence rangeRandom Glucose Reference Range is dependent on time and content of last meal. Glucose of more than 200 mg/dL in a nonstressed, ambulatory subject supports the diagnosis of Diabetes Mellitus. Glucose [Mass/volume] in Uri ne by Test stripOrdered By: Sarah Dodd on 07-14-2024 Glucose Test strip (U) [Mass/Vol] Normal mg/dL Normal [facility] Glucose Test strip (U) [Mass/Vol] Glucose [Mass/volume] in Urine by Test strip Normal [facility] HCG ( test) IA.rapi d Ql (U)Ordered By: ROMMEL BRIGGS on 07-14-2024 HCG ( test) Ql (U) Negative [facility] HCG ( test) Ql (U) Urine human chorionic gonadotropin (hCG) detection by immunoassay [facility] HCG,Urineon 07-14-2024 Beta HCG ( test) Ql (U) Negative Normal [facility] Comment on above: Order Comment: Name Collection Type:: Clean-Voided Midstream Result Comment: PERF ORMED BY: [facility] [address] [place] [address] PATHOLOGIST BOTTLE FILLER CLAU ZAVALA M.D. Performed By: #### A DDONUAPLUS, UHCG, URDS #### [address] Hematocrit Auto (Bld) [Volum e fraction]Ordered By: Sarah Dodd on 07-14-2024 Hematocrit (Bld) [Volume fraction] Hematocrit [Volume Fraction] of Blood by Automated count Low 34.0-46.4 [facility] Hematocrit [Volume Fraction] of Blood by Automated countOrdered By: Sraah Dodd on 07-14-2024 Hematocrit (Bld) [Volume fraction] 33.4 % Low 34.0-46.4 [facility] Comment on above: Performed By: #### A MYLES AVENDAÑO, URDS #### [address] Hemoglobin Test strip Ql (U) Ordered By: Sarah Dodd on 07-14-2024 Hemoglobin Ql (U) 1+ High Negative [facility] Hemoglobin Ql (U) Hemoglobin [Presence ] in Urine by Test strip High Negative [facility] Hemoglobin [Mass/volume] in BloodOrdered By: Sarah Dodd on 07-14-2024 Hemoglobin (Bld) [Mass/Vol] 10.8 g/dL Low 11.8-15.4 [facility] Comment on above: Performed By: #### A MYLES AVENDAÑO, URDS #### [address] Hemoglobin (Bld) [Mass/Vol] Hemoglobin [Mass/volume] in Blood Low 11.8-15.4 [facility] Hepatic Panelon 07-14-2024 Albumin [Mass/Vol] 4.1 g/dL Normal 3.5-5.7 [facility] Comment on above: Performed By: #### A MYLES AVENDAÑO, URDS #### [address] Bilirubin,Indirect 0.3 mg/dL Normal [facility] Comment on above: Performed By: #### A MYLES AVENDAÑO, URDS #### [address] Bilirubin.indirect [Mass/Vol] 0.10 mg/dL Normal 0.03-0.18 [facility] Comment on above: Performed By: #### A MYLES AVENDAÑO, URDS #### [facility] [address] [place] [address] Hyaline casts [#/area] in Ur ine sediment by Automated countOrdered By: Sarah Dodd on 07-14-2024 Hyaline casts Auto (Urine sed) [#/Area] None [LPF] 0-8 [facility] Hyaline casts Auto (Urine sed) [#/Area] Hyaline casts [#/area] in Urine sediment by Automated count 0-8 [facility] Ketones Test strip Ql (U)Ord ered By: Sarah Dodd on 07-14-2024 Ketones Ql (U) Ketones [Presence] i n Urine by Test strip High Negative [facility] Ketones [Presence] in Urine by Test stripOrdered By: Sarah Dodd on 07-14-2024 Ketones Ql (U) 2+ High Negative [facility] Comment on above: Order Comment: Name Collection Type:: Clean-Voided Midstream Performed By: #### A MYLES AVENDAÑO, URDS #### [facility] [address] [place] [address] Leukocyte esterase [Presence ] in Urine by Test stripOrdered By: Sarah Dodd on 07-14-2024 Leukocyte esterase Test strip Ql (U) Negative Normal Negative [facility] Comment on above: Order Comment: Name Collection Type:: Clean-Voided Midstream Performed By: #### A MYLES AVENDAÑO, URDS #### [facility] [address] [place] [address] Leukocyte esterase Test strip Ql (U) Leukocyte esterase [Presence] in Urine by Test strip Negative [facility] Leukocytes [#/area] in Urine sediment by Automated countOrdered By: Sarah Dodd on 07-14-2024 WBC Auto (Urine sed) [#/Area] 5-9 [HPF] High 0-4 [facility] WBC Auto (Urine sed) [#/Area] Leukocytes [#/area] in Urine sediment by Automated count High 0-4 [facility] Leukocytes [#/volume] correc delmer for nucleated erythrocytes in Blood by Automated counOrdered By: Sarah Dodd on 07-14-2024 WBC corrected for nucl RBC Auto (Bld) [#/Vol] 4.3 10*3/uL 3.8-11.6 [facility] WBC corrected for nucl RBC Auto (Bld) [#/Vol] Leukocytes [#/volume] corrected for nucleated erythrocytes in Blood by Automated coun 3.8-11.6 [facility] Leukocytes [#/volume] in Blo od by Automated countOrdered By: Sarah Dodd on 07-14-2024 WBC (Bld) [#/Vol] 4.3 10*3/uL Normal 3.8-11.6 [facility] Comment on above: Performed By: #### A JAROCHO, [facility], URDS #### [facility] [address] [place] [address] [place] Lipase [Enzymatic activity/v olume] in Serum or PlasmaOrdered By: Sarah Dodd on 07-14-2024 Lipase [Catalytic activity/Vol] 45.0 U/L Normal 11.0-82.0 [facility] Comment on above: Result Comment: PERF ORMED BY: [place] [address] PATHOLOGIST BOTTLE FILLER CLAU ZAVALA M.D. Performed By: #### A JAROCHO, [facility], URDS #### [facility] [address] Lipase [Catalytic activity/Vol] Lipase [Enzymatic activity/volume] in Serum or Plasma 11.0-82.0 [facility] Lymphocytes Auto (Bld) [#/Vo l]Ordered By: Sarah Dodd on 07-14-2024 Lymphocytes (Bld) [#/Vol] Lymphocytes [#/volume] in Blood by Automated count 1.00-4.8 [facility] Lymphocytes [#/volume] in Bl ood by Automated countOrdered By: Sarah Dodd on 07-14-2024 Lymphocytes (Bld) [#/Vol] 1.0 10*3/uL Normal 1.00-4.8 [facility] Comment on above: Performed By: #### A JAROCHO KATHERYN, URDS #### [facility] [address] [place] [address] Lymphocytes/100 WBC Auto (Bl d)Ordered By: Sarah Dodd on 07-14-2024 Lymphocytes/100 WBC (Bld) Lymphocytes/100 leukocytes in Blood by Automated count . [facility] Lymphocytes/100 leukocytes i n Blood by Automated countOrdered By: Sarah Dodd on 07-14-2024 Lymphocytes/100 WBC (Bld) 23.2 % Normal . [facility] Comment on above: Performed By: #### A JAROCHO KATHERYN, URDS #### [address] MCH Auto (RBC) [Entitic mass ]Ordered By: Sarah Dodd on 07-14-2024 MCH (RBC) [Entitic mass] MCH [Entitic mass] by Automated count Low 24.7-34.3 [facility] MCH [Entitic mass] by Automa delmer countOrdered By: Sarah Dodd on 07-14-2024 MCH (RBC) [Entitic mass] 23.5 pg Low 24.7-34.3 [facility] Comment on above: Performed By: #### A JAROCHO KATHERYN, URDS #### [facility] [address] [place] [address] MCHC Auto (RBC) [Mass/Vol]Or dered By: Sarah Dodd on 07-14-2024 MCHC (RBC) [Mass/Vol] 32.2 g/dL 32.0-35.0 [facility] MCHC (RBC) [Mass/Vol] MCHC [Mass/volume] by Automated count 32.0-35.0 [facility] MCV Auto (RBC) [Entitic vol] Ordered By: Sarah Dodd on 07-14-2024 MCV (RBC) [Entitic vol] MCV [Entitic volume] by Automated count Low 80-100 [facility] MCV [Entitic volume] by Auto mated countOrdered By: Sarah Dodd on 07-14-2024 MCV (RBC) [Entitic vol] 73.1 fL Low 80-100 [facility] Comment on above: Performed By: #### A DDONUAJOSSE, UHCG, URDS #### [facility] [address] Monocyte distribution width [Entitic volume] in Blood by AutomatedOrdered By: Sarah Dodd on 07-14-2024 Monocyte distribution width Auto (Bld) [Entitic vol] 20.43 % High 0.00-20.00 [facility] Comment on above: For adults in ED, MD W > 20.0 may be associated with a higher risk of sepsis during the first 12 hrs of hospital admission Monocyte distribution width Auto (Bld) [Entitic vol] Monocyte distribution width [Entitic volume] in Blood by Automated High 0.00-20.00 [facility] Comment on above: For adults in ED, MD W > 20.0 may be associated with a higher risk of sepsis during the first 12 hrs of hospital admission Monocytes Auto (Bld) [#/Vol] Ordered By: Sarah Dodd on 07-14-2024 Monocytes (Bld) [#/Vol] Automated blood monocyte count 0.0-0.8 [facility] Monocytes/100 WBC Auto (Bld) Ordered By: Sarah Dodd on 07-14-2024 Monocytes/100 WBC (Bld) Automated monocyte % . [facility] Mucus [Presence] in Urine by AutomatedOrdered By: Sarah Dodd on 07-14-2024 Mucus Auto Ql (U) 2+ [LPF] Abnormal [facility] Mucus Auto Ql (U) Mucus [Presence] in Urine by Automated Abnormal [facility] Neutrophils Auto (Bld) [#/Vo l]Ordered By: Sarah Dodd on 07-14-2024 Neutrophils (Bld) [#/Vol] Neutrophils [#/volume] in Blood by Automated count 1.8-7.7 [facility] Neutrophils [#/volume] in Bl ood by Automated countOrdered By: Sarah Dodd on 07-14-2024 Neutrophils (Bld) [#/Vol] 2.7 10*3/uL Normal 1.8-7.7 [facility] Comment on above: Performed By: #### A JAROCHO [facility], URDS #### [facility] [address] [place] [address] [place] Neutrophils/100 WBC Auto (Bl d)Ordered By: Sarah Dodd on 07-14-2024 Neutrophils/100 WBC (Bld) Automated neutrophil % . [facility] Nitrite Test strip Ql (U)Ord ered By: Sarah Dodd on 07-14-2024 Nitrite Ql (U) Negative Negative [facility] Nitrite Ql (U) Nitrite [Presence] i n Urine by Test strip Negative [facility] No Panel InformationOrdered By: Sarah Dodd on 07-14-2024 Estimated GFR (CKD-EPI) > 60.0 mL/Min [facility] Creatinine Clearance (Chem 107.14 [facility] Nucleated erythrocytes [Pres ence] in Blood by Automated countOrdered By: Sarah Dodd on 07-14-2024 Nucleated RBC Auto Ql (Bld) 0.1 /100{WBC} 0-0.5 [facility] Nucleated RBC Auto Ql (Bld) Nucleated erythrocytes [Presence] in Blood by Automated count 0-0.5 [facility] Platelet mean volume Auto (B ld) [Entitic vol]Ordered By: Sarah Dodd on 07-14-2024 Platelet mean volume (Bld) [Entitic vol] Platelet mean volume [Entitic volume] in Blood by Automated count 6.3-10.7 [facility] Platelet mean volume [Entiti c volume] in Blood by Automated countOrdered By: Sarah Dodd on 07-14-2024 Platelet mean volume (Bld) [Entitic vol] 9.1 fL Normal 6.3-10.7 [facility] Comment on above: Performed By: #### [facility] #### [facility] [address] Platelets Auto (Bld) [#/Vol] Ordered By: Sarah Dodd on 07-14-2024 Platelets (Bld) [#/Vol] Platelets [#/volume] in Blood by Automated count 150-450 [facility] Platelets [#/volume] in Bloo d by Automated countOrdered By: Sarah Dodd on 07-14-2024 Platelets (Bld) [#/Vol] 168 10*3/uL Normal 150-450 [facility] Comment on above: Performed By: #### A MYLES AVENDAÑO, URDS #### [facility] [address] [place] [address] [place] Potassium [Moles/volume] in Serum or PlasmaOrdered By: Sarah Dodd on 07-14-2024 Potassium [Moles/Vol] 3.3 mmol/L Low 3.5-5.1 [facility] Comment on above: Performed By: #### A MYLES AVENDAÑO, URDS #### [facility] [address] [place] [address] [place] Potassium [Moles/Vol] Potassium [Moles/v olume] in Serum or Plasma Low 3.5-5.1 [facility] Protein Test strip (U) [Mass /Vol]Ordered By: Sarah Dodd on 07-14-2024 Protein (U) [Mass/Vol] Protein [Mass/vol ume] in Urine by Test strip High Negative [facility] Protein [Mass/volume] in Ser um or PlasmaOrdered By: Sarah Dodd on 07-14-2024 Protein [Mass/Vol] 7.2 g/dL Normal 6.4-8.9 [facility] Comment on above: Performed By: #### A MYLES AVENDAÑO, URDS #### [facility] [address] [place] [address] [place] Protein [Mass/Vol] Protein [Mass/volume ] in Serum or Plasma 6.4-8.9 [facility] Protein [Mass/volume] in Uri ne by Test stripOrdered By: Sarah Dodd on 07-14-2024 Protein (U) [Mass/Vol] 20 mg/dL High Negative [facility] Comment on above: Order Comment: Name Collection Type:: Clean-Voided Midstream Performed By: #### A MYLES AVENDAÑO, URDS #### [facility] [address] [place] [address] RBC Auto (Bld) [#/Vol]Ordere d By: Sarah Dodd on 07-14-2024 RBC (Bld) [#/Vol] Erythrocytes [#/volu me] in Blood by Automated count 3.60-5.00 [facility] Respiratory specimen influen za A virus, influenza B virus, respiratory syncytical virOrdered By: Sarah Dodd on 07-14-2024 SARS-CoV-2 (COVID-19) RNA HIRAM+probe Ql (Unsp spec) Respiratory specimen influenza A virus, influenza B virus, respiratory syncytical vir [facility] Serum globulin measurement b y calculation (mass/volume)Ordered By: Sarah Dodd on 07-14-2024 Globulin (S) [Mass/Vol] 3.1 g/dL Normal [facility] Comment on above: Performed By: #### A JAROCHO KATHERYN, URDS #### [facility] [address] [place] [address] Serum or plasma albumin/glob ulin mass ratioOrdered By: Sarah Dodd on 07-14-2024 Albumin/Globulin [Mass ratio] 1.3 {ratio} [facility] Comment on above: Performed By: #### A J[facility]OCHO [facility] URDS #### [address] Albumin/Globulin [Mass ratio] Serum or plasma albumin/globulin mass ratio [facility] Serum or plasma anion gap de terminationOrdered By: Sarah Dodd on 07-14-2024 Anion gap [Moles/Vol] 11.1 mmol/L Normal 6.0-15.0 [facility] Comment on above: Performed By: #### A JAROCHO KATHERYN, URDS #### [address] Anion gap [Moles/Vol] Serum or plasma an ion gap determination 6.0-15.0 [facility] Serum or plasma non-glucuron idated bilirubin measurement (mass/volume)Ordered By: Sarah Dodd on 07-14-2024 Bilirubin.indirect [Mass/Vol] 0.3 mg/dL [facility] Bilirubin.indirect [Mass/Vol] Serum or plasma non-glucuronidated bilirubin measurement (mass/volume) [facility] Sodium [Moles/volume] in Ser um or PlasmaOrdered By: Sarah Dodd on 07-14-2024 Sodium [Moles/Vol] 138 mmol/L Normal 136-145 [facility] Comment on above: Performed By: #### A MYLES AVENDAÑO, URJOHN #### [address] Sodium [Moles/Vol] Sodium [Moles/volume ] in Serum or Plasma 136-145 [facility] Specific gravity Test strip (U) [Rel density]Ordered By: Sarah Dodd on 07-14-2024 Specific gravity (U) [Rel density] 1.030 1.001-1.03 0 [facility] Specific gravity (U) [Rel density] Specific gravity of Urine by Test strip 1.001-1.03 0 [facility] Urea nitrogen [Mass/volume] in Serum or PlasmaOrdered By: Sarah Dodd on 07-14-2024 Urea nitrogen [Mass/Vol] 9 mg/dL Normal 04-10 [facility] Comment on above: Performed By: #### A MYLES AVENDAÑO, URJOHN #### [address] Urea nitrogen [Mass/Vol] Urea nitrogen [Mass/volume] in Serum or Plasma 04-10 [facility] Urine appearanceOrdered By: Sarah Dodd on 07-14-2024 Appearance (U) Clear Normal Clear [facility] Comment on above: Order Comment: Name Collection Type:: Clean-Voided Midstream Performed By: #### A MYLSE AVENDAÑO, URJOHN #### [address] Urobilinogen Test strip (U) [Mass/Vol]Ordered By: Sarah Dodd on 07-14-2024 Urobilinogen (U) [Mass/Vol] 3 mg/dL High Normal [facility] Urobilinogen (U) [Mass/Vol] Urobilinogen [Mass/volume] in Urine by Test strip High Normal [facility] WBC Auto (Bld) [#/Vol]Ordere d By: Sarah Dodd on 07-14-2024 WBC (Bld) [#/Vol] Leukocytes [#/volume ] in Blood by Automated count 3.8-11.6 [facility] [facility] pH Test strip (U)Ordered By: Sarah Dodd on 07-14-2024 pH (U) pH of Urine by Test strip 5.0-9.0 [facility] pH of Urine by Test stripOrd ered By: Sarah Dodd on 07-14-2024 pH (U) 6.0 [pH] Normal 5.0-9.0 [facility] Comment on above: Order Comment: Name Collection Type:: Clean-Voided Midstream Performed By: #### A DDONUAPLUS, UHCG, URDS #### [address] CHLAMYDIA/GC BY PCRon 2023 CHLAMYDIA/GC BY PCR [...] are dependent on adequate specimen collection. Normal [facility] Comment on above: Performed By: #### C #### [facility] ([id number]) [address] [place] [address], [address] [place] [address] VAGINITIS PANEL PCRon 2023 VAGINITIS PANEL PCR [...] clinical presentation to determine patient diagnosis. Normal [facility] Comment on above: Performed By: #### V PPCR #### [facility] ([id number]) [address] [place] [address], [address] [place] [address] B-Type Natriuretic Peptideon 11-24-2023 Natriuretic peptide B (Bld) [Mass/Vol] 13.0 pg/mL Normal 5-100 [facility] Comment on above: Result Comment: PERF ORMED BY: [place] [address] PATHOLOGIST BOTTLE FILLER CLAU ZAVALA M.D. Performed By: #### A JAROCHO KATHERYN, URDS #### [address] Basic Metabolic Panelon Anion gap [Moles/Vol] 8.4 mmol/L Normal 6.0-15.0 [facility] Comment on above: Performed By: #### A JAROCHO KATHERYN, URDS #### [address] Calcium [Mass/Vol] 8.8 mg/dL Normal 8.6-10.3 [facility] Comment on above: Performed By: #### A JAROCHO KATHERYN, URDS #### [address] Chloride [Moles/Vol] 104 mmol/L Normal 98-107 [facility] Comment on above: Performed By: #### A JAROCHO KATHERYN, URDS #### [address] CO2 [Moles/Vol] 27.5 mmol/L Normal 21.0-31.0 [facility] Comment on above: Performed By: #### A ÓSCARUAESDRAS LOAIZAG, URDS #### [address] Creatinine [Mass/Vol] 0.77 mg/dL Normal 0.60-1.20 [facility] Comment on above: Performed By: #### A DDONUAPLUS UHCG, URDS #### [place] [address] [place] Creatinine Clr Calc Pharmacy 103.65 Normal [facility] Comment on above: Result Comment: PERF ORMED BY: [place] [address] PATHOLOGIST BOTTLE FILLER CLAU ZAVALA M.D. Performed By: #### A ÓSCARUAJORGE LOAIZACG, URDS #### [address] GFR/1.73 sq M.predicted MDRD (S/P/Bld) [Vol rate/Area] mL/min/{1.73_m2} Normal [facility] Comment on above: Performed By: #### A DDDOMINGOUAESDRAS LOAIZAG, URDS #### [address] Glucose [Mass/Vol] 103 mg/dL High 70-100 [facility] Comment on above: Result Comment: [place] Glucose Reference Range is dependent on time and content of last meal. Glucose of more than 200 mg/dL in a nonstressed, ambulatory subject supports the diagnosis of Diabetes Mellitus. ADA recommended reference range Performed By: #### A DDONUAPLUS UHCG, URDS #### [address] Potassium [Moles/Vol] 3.9 mmol/L Normal 3.5-5.1 [facility] Comment on above: Performed By: #### A DDONUAJORGE LOAIZACG, URDS #### [address] Sodium [Moles/Vol] 136 mmol/L Normal 136-145 [facility] Comment on above: Performed By: #### A JORGE AVENDAÑOCG, URDS #### [address] Urea nitrogen [Mass/Vol] 16 mg/dL Normal 7-25 [facility] Comment on above: Performed By: #### A JORGE AVENDAÑOCG, URDS #### [address] Complete Blood Count Auto Di ffon 11-24-2023 Basophils (Bld) [#/Vol] 0.0 10*3/uL Normal 0.0-0.2 [facility] Comment on above: Result Comment: PERF ORMED BY: [place] [address] PATHOLOGIST BOTTLE FILLER CLAU ZAVALA M.D. Performed By: #### A DDDOMINGOUAJORGE LOAIZACG, URDS #### [address] Basophils/100 WBC (Bld) 0.6 % Normal . [facility] Comment on above: Performed By: #### A DDDOMINGOUAJORGE LOAIZACG, URDS #### [address] Eosinophils (Bld) [#/Vol] 0.1 10*3/uL Normal 0.0-0.45 [facility] Comment on above: Performed By: #### A DDONUAPLUSJORGECG, URDS #### [address] Eosinophils/100 WBC (Bld) 1.8 % Normal . [facility] Comment on above: Performed By: #### A DDONUAPLUS, UHCG, URDS #### [address] Erythrocyte distribution width (RBC) [Ratio] 14.3 % Normal 11.9-15.3 [facility] Comment on above: Performed By: #### A ESDRAS AVENDAÑOG, URDS #### [address] Hematocrit (Bld) [Volume fraction] 34.8 % Normal 34.0-46.4 [facility] Comment on above: Performed By: #### A MYLES AVENDAÑO, URDS #### [address] Hemoglobin (Bld) [Mass/Vol] 10.9 g/dL Low 11.8-15.4 [facility] Comment on above: Performed By: #### A ESDRAS AVENDAÑOG, URDS #### [address] Lymphocytes (Bld) [#/Vol] 1.9 10*3/uL Normal 1.00-4.8 [facility] Comment on above: Performed By: #### A MYLES AVENDAÑO, URDS #### [address] Lymphocytes/100 WBC (Bld) 22.7 % Normal . [facility] Comment on above: Performed By: #### A ESDRAS AVENDAÑOG, URDS #### [address] MCH (RBC) [Entitic mass] 23.1 pg Low 24.7-34.3 [facility] Comment on above: Performed By: #### A JORGE AVENDAÑOCG, URDS #### [address] MCV (RBC) [Entitic vol] 74.1 fL Low 80-100 [facility] Comment on above: Performed By: #### A JORGE AVENDAÑOCG, URDS #### [address] Mean Corpuscular HGB Conc 31.3 g/dL Low 32.0-35.0 [facility] Comment on above: Performed By: #### A DDMYLES DE ANDA, URDS #### [address] Monocytes (Bld) [#/Vol] 0.5 10*3/uL Normal 0.0-0.8 [facility] Comment on above: Performed By: #### A JORGE AVENDAÑOCG, URDS #### [address] Monocytes/100 WBC (Bld) 18.34 % Normal 0.00-20.00 [facility] Comment on above: Performed By: #### A DDDOMINGOUAMYLES LOAIZA, URDS #### [address] Monocytes/100 WBC (Bld) 6.4 % Normal . [facility] Comment on above: Performed By: #### A MYLES AVENDAÑO, URDS #### [address] Neutrophils (Bld) [#/Vol] 5.7 10*3/uL Normal 1.8-7.7 [facility] Comment on above: Performed By: #### A MYLES AVENDAÑO, URDS #### [address] Neutrophils/100 WBC (Bld) 68.5 % Normal . [facility] Comment on above: Performed By: #### A MYLES AVENDAÑO, URDS #### [address] NRBC% 0.1 /100{WBC} Normal 0-0.5 [facility] Comment on above: Performed By: #### A ESDRAS AVENDAÑOG, URDS #### [address] Platelet mean volume (Bld) [Entitic vol] 9.1 fL Normal 6.3-10.7 [facility] Comment on above: Performed By: #### A DDONUAPLUS, UHCG, URDS #### [facility] [address] [place] [address] [place] Platelets (Bld) [#/Vol] 191 10*3/uL Normal 150-450 [facility] Comment on above: Performed By: #### A DDONUAPLUS, UHCG, URDS #### [address] RBC (Bld) [#/Vol] 4.70 10*6/uL Normal 3.60-5.00 [facility] Comment on above: Performed By: #### A DDONUAPLUS, UHCG, URDS #### [place] [address] [place] WBC (Bld) [#/Vol] 8.3 10*3/uL Normal 3.8-11.6 [facility] Comment on above: Performed By: #### A DDONUAPLUS, JORGECG, URDS #### [place] [address] [place] Creatine Kinaseon 11-24-2023 CK [Catalytic activity/Vol] 97 U/L Normal 30-223 [facility] Comment on above: Performed By: #### A DDONUAPLUS, UHCG, URDS #### [place] [address] [place] Dipstick and Microscopicon 0 11-24-2023 Appearance (U) Clear Normal Clear [facility] Comment on above: Order Comment: Name Collection Type:: Clean-Voided Midstream Performed By: #### A DDONUAPLUS, UHCG, URDS #### [place] [address] [place] Bacteria,Urine None Seen Normal None Seen [facility] Comment on above: Order Comment: Name Collection Type:: Clean-Voided Midstream Performed By: #### A DDONUAPLUS, UHCG, URDS #### [address] Bilirubin,Urine Negative Normal Negative [facility] Comment on above: Order Comment: Name Collection Type:: Clean-Voided Midstream Performed By: #### A DDONUAPLUS, UHCG, URDS #### [place] [address] [place] Color (U) Yellow Normal Yellow [facility] Comment on above: Order Comment: Name Collection Type:: Clean-Voided Midstream Performed By: #### A DDONUAPLUS, UHCG, URDS #### [place] [address] [place] Glucose Ql (U) Normal Normal Normal [facility] Comment on above: Order Comment: Name Collection Type:: Clean-Voided Midstream Performed By: #### A DDONUAPLUS, UHCG, URDS #### [place] [address] [place] Hyaline Casts,Urine 0-8 Normal 0-8 [facility] Comment on above: Order Comment: Name Collection Type:: Clean-Voided Midstream Performed By: #### A DDONUAPLUS, UHCG, URDS #### [address] Ketones Ql (U) Negative Normal Negative [facility] Comment on above: Order Comment: Name Collection Type:: Clean-Voided Midstream Performed By: #### A DDONUAPLUS, UHCG, URDS #### [place] [address] [place] Leukocyte esterase Test strip Ql (U) Negative Normal Negative [facility] Comment on above: Order Comment: Name Collection Type:: Clean-Voided Midstream Performed By: #### A DDONUAPLUS, UHCG, URDS #### [place] [address] [place] Nitrite,Urine Negative Normal Negative [facility] Comment on above: Order Comment: Name Collection Type:: Clean-Voided Midstream Performed By: #### A DDONUAPLUS, UHCG, URDS #### [place] [address] [place] Occult Blood,Urine 1+ High Negative [facility] Comment on above: Order Comment: Name Collection Type:: Clean-Voided Midstream Performed By: #### A DDONUAPLUS, UHCG, URDS #### [address] pH (U) 7.0 [pH] Normal 5.0-9.0 [facility] Comment on above: Order Comment: Name Collection Type:: Clean-Voided Midstream Performed By: #### A DDONUAPLUS, UHCG, URDS #### [address] Protein,Urine Negative Normal Negative [facility] Comment on above: Order Comment: Name Collection Type:: Clean-Voided Midstream Performed By: #### A DDONUAPLUS, UHCG, URDS #### [address] RBC,Urine 10-19 High 0-4 [facility] Comment on above: Order Comment: Name Collection Type:: Clean-Voided Midstream Performed By: #### A DDONUAPLUS, UHCG, URDS #### [address] Specificy [place],Urine 1.022 Normal 1.001-1.03 0 [facility] Comment on above: Order Comment: Name Collection Type:: Clean-Voided Midstream Performed By: #### A DDONUAPLUS, UHCG, URDS #### [address] Squamous Epithelial Cell,Urine 3-4 High 0-2 [facility] Comment on above: Order Comment: Name Collection Type:: Clean-Voided Midstream Performed By: #### A DDONUAPLUS, UHCG, URDS #### [address] Urobilinogen,Urine Normal Normal Normal [facility] Comment on above: Order Comment: Name Collection Type:: Clean-Voided Midstream Performed By: #### A DDONUAPLUS, UHCG, URDS #### [address] WBC,Urine 1-2 Normal 0-4 [facility] Comment on above: Order Comment: Name Collection Type:: Clean-Voided Midstream Performed By: #### A MYLES AVENDAÑO, URDS #### [facility] [address] [place] [address] ECG 12 lead ECGon 11-24-2023 ECG 12 lead ECG [facility] [place] [address] Electrocardiograph Report Signed Patient: Leandra Fonseca MR#: [id number] : 1990 Acct:[id number] Age/Sex: 33 / F ADM Date: 11/24/23 Loc: ER Room: Type: [facility] ER Attending Dr: Ordering Provider: [...] was found Confirmed by Jim Vega DO ([id number]) on 11/24/2023 9:23:04 AM Referred By: Electronically Signed By:Jim Vega DO Transcribed By: MUS Signed By Jim Vega DO 4 0923 Normal [facility] HCG,Urineon 11-24-2023 Beta HCG ( test) Ql (U) Negative Normal [facility] Comment on above: Order Comment: Name Collection Type:: Clean-Voided Midstream Result Comment: PERF ORMED BY: [place] [address] PATHOLOGIST BOTTLE FILLER CLAU ZAVALA M.D. Performed By: #### A MYLES AVENDAÑO, URDS #### [address] Hepatic Panelon 11-24-2023 Albumin [Mass/Vol] 4.0 g/dL Normal 3.5-5.7 [facility] Comment on above: Performed By: #### A MYLES AVENDAÑO, URJOHN #### [address] Albumin/Globulin [Mass ratio] 1.4 {ratio} Normal [facility] Comment on above: Performed By: #### A MYLES AVENDAÑO, URJOHN #### [address] ALP [Catalytic activity/Vol] 42 U/L Normal 34-104 [facility] Comment on above: Performed By: #### A MYLES AVENDAÑO, URJOHN #### [address] ALT [Catalytic activity/Vol] 11 U/L Normal 7-52 [facility] Comment on above: Performed By: #### A MYLES AVENDAÑO, URJOHN #### [address] AST [Catalytic activity/Vol] 12 U/L Low 13-39 [facility] Comment on above: Performed By: #### A MYLES AVENDAÑO, URJOHN #### [address] Bilirubin [Mass/Vol] 0.4 mg/dL Normal 0.3-1.0 [facility] Comment on above: Performed By: #### A MYLES AVENDAÑO, URJOHN #### [address] Bilirubin,Indirect 0.3 mg/dL Normal [facility] Comment on above: Performed By: #### A MYLES AVENDAÑO, URJOHN #### [address] Bilirubin.indirect [Mass/Vol] 0.10 mg/dL Normal 0.03-0.18 [facility] Comment on above: Performed By: #### A MYLES AVENDAÑO, URDS #### [address] Globulin (S) [Mass/Vol] 2.9 g/dL Normal [facility] Comment on above: Performed By: #### A JAROCHO IvelisseG, URDS #### [address] Protein [Mass/Vol] 6.9 g/dL Normal 6.4-8.9 [facility] Comment on above: Performed By: #### A DDONUAPLUS, CG, URDS #### [address] Partial Thromboplastin Timeo n 11-24-2023 aPTT Coag (Bld) [Time] 30.8 s Normal 25.1-36.5 [facility] Comment on above: Result Comment: A he matocrit value greater than 55% may lead to inaccurate results in coagulation testing. Patients having hematocrit values >55% require a special collection tube for coagulation studies. Please contact the laboratory at [phone] for redraw instructions. PERFORMED BY: [place] [address] PATHOLOGIST BOTTLE FILLER CLAU ZAVALA M.D. Performed By: #### A JAROCHO [facility], URDS #### [address] Prothrombin Time INRon 11-23 INR Coag (PPP) [Relative time] 1.1 {INR} Normal [facility] Comment on above: Result Comment: [...] valves: 3 - 4.5 Performed By: #### A DDONUAPLUS, CG, URDS #### [address] PT Coag (PPP) [Time] 12.9 s Normal 9.0-12.9 [facility] Comment on above: Result Comment: A he matocrit value greater than 55% may lead to inaccurate results in coagulation testing. Patients having hematocrit values >55% require a special collection tube for coagulation studies. Please contact the laboratory at [phone] for redraw instructions. Performed By: #### A JAROCHO, IvelisseG, URDS #### [address] Troponin I High Sensitivityo n 11-24-2023 Troponin I High Sensitivity < 2.3 Normal 0.0-15.0 [facility] Comment on above: Result Comment: PERF ORMED BY: [place] [address] PATHOLOGIST BOTTLE FILLER CLAU ZAVALA M.D. Performed By: #### A JAROCHO, [facility], URDS #### [address] XR chest 1V portableon 11-23 XR chest 1V portable [facility] [place] [address] [place] [address] XRay Report Signed Patient: Leandra Fonseca MR#: [id number] : 1990 Acct:[id number] Age/Sex: 33 / F ADM Date: 11/24/23 Loc: ER Room: Type: [facility] ER Attending Dr: Copies to: [...] M.D.11/24/2023 11:32 AM Dictation Location: [place] [address] Transcribed By: [facility] 11/24/23 1132 Dictated By: Michell Miller MD 11/24/23 1131 Signed By: 11/24/23 1132 Normal [facility] Basic Metabolic Panelon 10-19 Anion gap [Moles/Vol] 11.0 mmol/L Normal 6.0-15.0 [facility] Comment on above: Performed By: #### A JORGE AVENDAÑOCG, URDS #### [facility] [address] Calcium [Mass/Vol] 8.6 mg/dL Normal 8.6-10.3 [facility] Comment on above: Performed By: #### A DDJORGE DE ANDACG, URDS #### [facility] [address] Chloride [Moles/Vol] 107 mmol/L Normal 98-107 [facility] Comment on above: Performed By: #### A DDDOMINGOUAJORGE LOAIZACG, URDS #### [facility] [address] CO2 [Moles/Vol] 22.9 mmol/L Normal 21.0-31.0 [facility] Comment on above: Performed By: #### A DDDOMINGOUAJOSSE UHCG, URDS #### [facility] [address] [place] [id number] [place] Creatinine [Mass/Vol] 0.64 mg/dL Normal 0.60-1.20 [facility] Comment on above: Performed By: #### A DDONUAPLUSJORGECG, URDS #### [facility] [address] [place] [address] [place] Creatinine Clr Calc Pharmacy 124.50 Normal [facility] Comment on above: Performed By: #### A DDDOMINGOUAJOSSE UHCG, URDS #### [facility] [address] [place] [phone] [place] GFR/1.73 sq M.predicted MDRD (S/P/Bld) [Vol rate/Area] mL/min/{1.73_m2} Normal [facility] Comment on above: Performed By: #### A DDONUAPLUS, UHCG, URDS #### [facility] [address] Glucose [Mass/Vol] 94 mg/dL Normal 70-100 [facility] Comment on above: Result Comment: [place] Glucose Reference Range is dependent on time and content of last meal. Glucose of more than 200 mg/dL in a nonstressed, ambulatory subject supports the diagnosis of Diabetes Mellitus. ADA recommended reference range Performed By: #### A DDONUAPLUS, UHCG, URDS #### [facility] [address] Potassium [Moles/Vol] 3.9 mmol/L Normal 3.5-5.1 [facility] Comment on above: Performed By: #### A DDONUAPLUS, UHCG, URDS #### [address] Sodium [Moles/Vol] 137 mmol/L Normal 136-145 [facility] Comment on above: Performed By: #### A DDONUAPLUS, UHCG, URDS #### [facility] [address] Urea nitrogen [Mass/Vol] 12 mg/dL Normal 7-25 [facility] Comment on above: Performed By: #### A DDONUAPLUS, UHCG, URDS #### [address] abdomen pelvis w conon CT abdomen pelvis w con [facility] [place] [address] CT Scan Report Signed Patient: Leandra Fonseca MR#: [id number] : 1990 Acct:[id number] Age/Sex: 33 / F ADM Date: 11/13/23 Loc: ER Room: Type: [facility] ER Attending Dr: Copies to: Frank Silva [...] Rebecca Ybarra M.D.11/13/2023 10:47 AM Dictation Location: [place] [address] Transcribed By: CHRISTINE 11/13/23 1047 Dictated By: Rebecca Ybarra II, MD 11/13/23 1036 Signed By: 11/13/23 1047 Normal [facility] Complete Blood Count Auto Di ffon 11-13-2023 Basophils (Bld) [#/Vol] 0.1 10*3/uL Normal 0.0-0.2 [facility] Comment on above: Result Comment: PERF ORMED BY: [place] [address] PATHOLOGIST BOTTLE FILLER CLAU ZAVALA M.D. Performed By: #### C BC, HEPATIC, PTT, BMP, LIPASE, PT #### [address] Basophils/100 WBC (Bld) 0.7 % Normal . [facility] Comment on above: Performed By: #### C BC, HEPATIC, PTT, BMP, LIPASE, PT #### [address] Eosinophils (Bld) [#/Vol] 0.1 10*3/uL Normal 0.0-0.45 [facility] Comment on above: Performed By: #### C BC, HEPATIC, PTT, BMP, LIPASE, PT #### [address] Eosinophils/100 WBC (Bld) 1.5 % Normal . [facility] Comment on above: Performed By: #### C BC, HEPATIC, PTT, BMP, LIPASE, PT #### [address] Erythrocyte distribution width (RBC) [Ratio] 14.6 % Normal 11.9-15.3 [facility] Comment on above: Performed By: #### C BC, HEPATIC, PTT, BMP, LIPASE, PT #### [address] Hematocrit (Bld) [Volume fraction] 34.1 % Normal 34.0-46.4 [facility] Comment on above: Performed By: #### C BC, HEPATIC, PTT, BMP, LIPASE, PT #### [address] Hemoglobin (Bld) [Mass/Vol] 10.9 g/dL Low 11.8-15.4 [facility] Comment on above: Performed By: #### C BC, HEPATIC, PTT, BMP, LIPASE, PT #### [address] Lymphocytes (Bld) [#/Vol] 1.9 10*3/uL Normal 1.00-4.8 [facility] Comment on above: Performed By: #### C BC, HEPATIC, PTT, BMP, LIPASE, PT #### [address] Lymphocytes/100 WBC (Bld) 23.7 % Normal . [facility] Comment on above: Performed By: #### C BC, HEPATIC, PTT, BMP, LIPASE, PT #### [address] MCH (RBC) [Entitic mass] 23.7 pg Low 24.7-34.3 [facility] Comment on above: Performed By: #### C BC, HEPATIC, PTT, BMP, LIPASE, PT #### [address] MCV (RBC) [Entitic vol] 74.1 fL Low 80-100 [facility] Comment on above: Performed By: #### C BC, HEPATIC, PTT, BMP, LIPASE, PT #### [address] Mean Corpuscular HGB Conc 31.9 g/dL Low 32.0-35.0 [facility] Comment on above: Performed By: #### C BC, HEPATIC, PTT, BMP, LIPASE, PT #### [address] Monocytes (Bld) [#/Vol] 0.5 10*3/uL Normal 0.0-0.8 [facility] Comment on above: Performed By: #### C BC, HEPATIC, PTT, BMP, LIPASE, PT #### [address] Monocytes/100 WBC (Bld) 18.59 % Normal 0.00-20.00 [facility] Comment on above: Performed By: #### C BC, HEPATIC, PTT, BMP, LIPASE, PT #### [address] Monocytes/100 WBC (Bld) 6.9 % Normal . [facility] Comment on above: Performed By: #### C BC, HEPATIC, PTT, BMP, LIPASE, PT #### [address] Neutrophils (Bld) [#/Vol] 5.3 10*3/uL Normal 1.8-7.7 [facility] Comment on above: Performed By: #### C BC, HEPATIC, PTT, BMP, LIPASE, PT #### [address] Neutrophils/100 WBC (Bld) 67.2 % Normal . [facility] Comment on above: Performed By: #### C BC, HEPATIC, PTT, BMP, LIPASE, PT #### [address] NRBC% 0.1 /100{WBC} Normal 0-0.5 [facility] Comment on above: Performed By: #### C BC, HEPATIC, PTT, BMP, LIPASE, PT #### [address] Platelet mean volume (Bld) [Entitic vol] 9.2 fL Normal 6.3-10.7 [facility] Comment on above: Performed By: #### C BC, HEPATIC, PTT, BMP, LIPASE, PT #### [address] Platelets (Bld) [#/Vol] 199 10*3/uL Normal 150-450 [facility] Comment on above: Performed By: #### C BC, HEPATIC, PTT, BMP, LIPASE, PT #### [address] RBC (Bld) [#/Vol] 4.60 10*6/uL Normal 3.60-5.00 [facility] Comment on above: Performed By: #### C BC, HEPATIC, PTT, BMP, LIPASE, PT #### [address] WBC (Bld) [#/Vol] 7.9 10*3/uL Normal 3.8-11.6 [facility] Comment on above: Performed By: #### C BC, HEPATIC, PTT, BMP, LIPASE, PT #### [place] [address] [place] Dipstick and Microscopicon 0 11-13-2023 Appearance (U) Clear Normal Clear [facility] Comment on above: Order Comment: Name Collection Type:: Clean-Voided Midstream Performed By: #### E NATALIE, CBC, CMP #### [address] Bacteria,Urine None Seen Normal None Seen [facility] Comment on above: Order Comment: Name Collection Type:: Clean-Voided Midstream Performed By: #### E NATALIE, CBC, CMP #### [address] Bilirubin,Urine Negative Normal Negative [facility] Comment on above: Order Comment: Name Collection Type:: Clean-Voided Midstream Performed By: #### E NATALIE, CBC, CMP #### [address] Color (U) Yellow Normal Yellow [facility] Comment on above: Order Comment: Name Collection Type:: Clean-Voided Midstream Performed By: #### E NATALIE, CBC, CMP #### [address] Glucose Ql (U) Normal Normal Normal [facility] Comment on above: Order Comment: Name Collection Type:: Clean-Voided Midstream Performed By: #### E NATALIE, CBC, CMP #### [address] Hyaline Casts,Urine None Seen Normal 0-8 [facility] Comment on above: Order Comment: Name Collection Type:: Clean-Voided Midstream Performed By: #### E NATALIE, CBC, CMP #### [address] Ketones Ql (U) Negative Normal Negative [facility] Comment on above: Order Comment: Name Collection Type:: Clean-Voided Midstream Performed By: #### E NATALIE, CBC, CMP #### [address] Leukocyte esterase Test strip Ql (U) Negative Normal Negative [facility] Comment on above: Order Comment: Name Collection Type:: Clean-Voided Midstream Performed By: #### E NATALIE, CBC, CMP #### [place] [address] [place] Nitrite,Urine Negative Normal Negative [facility] Comment on above: Order Comment: Name Collection Type:: Clean-Voided Midstream Performed By: #### E NATALIE, CBC, CMP #### [address] Occult Blood,Urine 1+ High Negative [facility] Comment on above: Order Comment: Name Collection Type:: Clean-Voided Midstream Performed By: #### E NATALIE, CBC, CMP #### [address] pH (U) 6.5 [pH] Normal 5.0-9.0 [facility] Comment on above: Order Comment: Name Collection Type:: Clean-Voided Midstream Performed By: #### E NATALIE, CBC, CMP #### [place] [address] [place] Protein,Urine Negative Normal Negative [facility] Comment on above: Order Comment: Name Collection Type:: Clean-Voided Midstream Performed By: #### E NATALIE, CBC, CMP #### [place] [address] [place] RBC,Urine 5-9 High 0-4 [facility] Comment on above: Order Comment: Name Collection Type:: Clean-Voided Midstream Performed By: #### E NATALIE, CBC, CMP #### [place] [address] [place] Specificy [place],Urine 1.011 Normal 1.001-1.03 0 [facility] Comment on above: Order Comment: Name Collection Type:: Clean-Voided Midstream Performed By: #### E NATALIE, CBC, CMP #### [address] Squamous Epithelial Cell,Urine None Seen Normal 0-2 [facility] Comment on above: Order Comment: Name Collection Type:: Clean-Voided Midstream Performed By: #### E NATALIE, CBC, CMP #### [address] Urobilinogen,Urine Normal Normal Normal [facility] Comment on above: Order Comment: Name Collection Type:: Clean-Voided Midstream Performed By: #### E NATALIE, CBC, CMP #### [address] WBC LM.HPF (Urine sed) [#/Area] 0 /[HPF] Normal 0-4 [facility] Comment on above: Order Comment: Name Collection Type:: Clean-Voided Midstream Performed By: #### E NATALIE, CBC, CMP #### [address] HCG,Urineon 11-13-2023 Beta HCG ( test) Ql (U) Negative Normal [facility] Comment on above: Order Comment: Name Collection Type:: Clean-Voided Midstream Result Comment: PERF ORMED BY: [place] [address] PATHOLOGIST BOTTLE FILLER CLAU ZAVALA M.D. Performed By: #### E NATALIE, CBC, CMP #### [address] Hepatic Panelon 11-13-2023 Albumin [Mass/Vol] 4.1 g/dL Normal 3.5-5.7 [facility] Comment on above: Performed By: #### C BC, HEPATIC, PTT, BMP, LIPASE, PT #### [address] Albumin/Globulin [Mass ratio] 1.5 {ratio} Normal [facility] Comment on above: Performed By: #### C BC, HEPATIC, PTT, BMP, LIPASE, PT #### [address] ALP [Catalytic activity/Vol] 39 U/L Normal 34-104 [facility] Comment on above: Performed By: #### C BC, HEPATIC, PTT, BMP, LIPASE, PT #### [address] ALT [Catalytic activity/Vol] 10 U/L Normal 7-52 [facility] Comment on above: Performed By: #### C BC, HEPATIC, PTT, BMP, LIPASE, PT #### [address] AST [Catalytic activity/Vol] 12 U/L Low 13-39 [facility] Comment on above: Performed By: #### C BC, HEPATIC, PTT, BMP, LIPASE, PT #### [address] Bilirubin [Mass/Vol] 0.4 mg/dL Normal 0.3-1.0 [facility] Comment on above: Performed By: #### C BC, HEPATIC, PTT, BMP, LIPASE, PT #### [address] Bilirubin,Indirect 0.3 mg/dL Normal [facility] Comment on above: Performed By: #### C BC, HEPATIC, PTT, BMP, LIPASE, PT #### [address] Bilirubin.indirect [Mass/Vol] 0.10 mg/dL Normal 0.03-0.18 [facility] Comment on above: Performed By: #### C BC, HEPATIC, PTT, BMP, LIPASE, PT #### [address] Globulin (S) [Mass/Vol] 2.8 g/dL Normal [facility] Comment on above: Performed By: #### C BC, HEPATIC, PTT, BMP, LIPASE, PT #### [address] [place] [address] [facility] Protein [Mass/Vol] 6.9 g/dL Normal 6.4-8.9 [facility] Comment on above: Performed By: #### C BC, HEPATIC, PTT, BMP, LIPASE, PT #### [place] [id number] [facility] Lipaseon 11-13-2023 Lipase [Catalytic activity/Vol] 39.0 U/L Normal 11.0-82.0 [facility] Comment on above: Result Comment: PERF ORMED BY: [place] [address] PATHOLOGIST BOTTLE FILLER CLAU ZAVALA M.D. Performed By: #### [facility], URDS #### [place] [id number] [facility] Partial Thromboplastin Timeo n 11-13-2023 aPTT Coag (Bld) [Time] 29.8 s Normal 25.1-36.5 [facility] Comment on above: Result Comment: A he matocrit value greater than 55% may lead to inaccurate results in coagulation testing. Patients having hematocrit values >55% require a special collection tube for coagulation studies. Please contact the laboratory at [phone] for redraw instructions. PERFORMED BY: [place] [address] PATHOLOGIST BOTTLE FILLER CLAU ZAVALA M.D. Performed By: #### [facility], URDS #### [place] [id number] [facility] Prothrombin Time INRon 11-13 INR Coag (PPP) [Relative time] 1.0 {INR} Normal [facility] Comment on above: Result Comment: [...] valves: 3 - 4.5 Performed By: #### A DDONUAPLUS, UHCG, URDS #### [facility] [address] PT Coag (PPP) [Time] 12.0 s Normal 9.0-12.9 [facility] Comment on above: Result Comment: A he matocrit value greater than 55% may lead to inaccurate results in coagulation testing. Patients having hematocrit values >55% require a special collection tube for coagulation studies. Please contact the laboratory at [phone] for redraw instructions. Performed By: #### A DDONUAPLUS, UHCG, URDS #### [facility] [address] Physician Referralon [facility] Physician Referral [phone] [id number] Normal [facility] Alanine aminotransferase [En zymatic activity/volume] in Serum or PlasmaOrdered By: Kelly Hough on 09-27-2023 ALT [Catalytic activity/Vol] 9 U/L Normal 7-52 [facility] Comment on above: Performed By: #### E NATALIE, CBC, CMP #### [facility] [address] Albumin [Mass/volume] in Ser um or Plasma by Bromocresol green (BCG) dye binding methoOrdered By: Kelly Hough on 09-27-2023 Albumin BCG dye [Mass/Vol] 4.3 g/dL 3.5-5.7 [facility] Alkaline phosphatase [Enzyma tic activity/volume] in Serum or PlasmaOrdered By: Kelly Hough on 09-27-2023 ALP [Catalytic activity/Vol] 41 U/L Normal 34-104 [facility] Comment on above: Performed By: #### E NATALIE, CBC, CMP #### [facility] [address] [place] [address] Aspartate aminotransferase [ Enzymatic activity/volume] in Serum or PlasmaOrdered By: Kelly Hough on 09-27-2023 AST [Catalytic activity/Vol] 10 U/L Low 13-39 [facility] Comment on above: Performed By: #### E NATALIE, CBC, CMP #### [address] Automated basophil %Ordered By: Kelly Ryannemesio on 09-27-2023 Basophils/100 WBC (Bld) 0.3 % Normal . [facility] Comment on above: Performed By: #### E NATALIE, CBC, CMP #### [address] Automated basophil countOrde red By: Kelly Ryannemesio on 09-27-2023 Basophils (Bld) [#/Vol] 0.0 10*3/uL Normal 0.0-0.2 [facility] Comment on above: Result Comment: PERF ORMED BY: [place] [address] PATHOLOGIST BOTTLE FILLER CLAU ZAVALA M.D. Performed By: #### E NATALIE, CBC, CMP #### [address] Automated blood monocyte cou ntOrdered By: Kelly France on 09-27-2023 Monocytes (Bld) [#/Vol] 0.4 10*3/uL Normal 0.0-0.8 [facility] Comment on above: Performed By: #### E NATALIE, CBC, CMP #### [address] Automated eosinophil %Ordere d By: Kelly France on 09-27-2023 Eosinophils/100 WBC (Bld) 0.8 % Normal . [facility] Comment on above: Performed By: #### E NATALIE, CBC, CMP #### [address] Automated eosinophil countOr dered By: Kelly Ryannemesio on 09-27-2023 Eosinophils (Bld) [#/Vol] 0.1 10*3/uL Normal 0.0-0.45 [facility] Comment on above: Performed By: #### E NATALIE, CBC, CMP #### [address] Automated monocyte %Ordered By: Kelly Ryannemesio on 09-27-2023 Monocytes/100 WBC (Bld) 5.3 % Normal . [facility] Comment on above: Performed By: #### E NATALIE, CBC, CMP #### [facility] [address] Automated neutrophil %Ordere d By: Kelly Ryannemesio on 09-27-2023 Neutrophils/100 WBC (Bld) 68.9 % Normal . [facility] Comment on above: Performed By: #### E NATALIE, CBC, CMP #### [address] Bilirubin.total [Mass/volume ] in Serum or PlasmaOrdered By: Kelly France on 09-27-2023 Bilirubin [Mass/Vol] 0.7 mg/dL Normal 0.3-1.0 [facility] Comment on above: Performed By: #### E NATALIE CBC, CMP #### [address] Calcium [Mass/volume] in Ser um or PlasmaOrdered By: Kelly France on 09-27-2023 Calcium [Mass/Vol] 9.0 mg/dL Normal 8.6-10.3 [facility] Comment on above: Performed By: #### E NATALIE, CBC, CMP #### [address] Carbon dioxide, total [Moles /volume] in Serum or PlasmaOrdered By: Kelly France on 09-27-2023 CO2 [Moles/Vol] 29.3 mmol/L Normal 21.0-31.0 [facility] Comment on above: Performed By: #### E NATALIE, CBC, CMP #### [facility] [address] [place] [address] [place] Chloride [Moles/volume] in S salas or PlasmaOrdered By: Kelly France on 09-27-2023 Chloride [Moles/Vol] 107 mmol/L Normal 98-107 [facility] Comment on above: Performed By: #### E NATALIE, CBC, CMP #### [address] Complete Blood Count Auto Di ffon 09-27-2023 Mean Corpuscular HGB Conc 31.6 g/dL Low 32.0-35.0 [facility] Comment on above: Performed By: #### E NATALIE CBC, CMP #### [address] NRBC% 0.1 /100{WBC} Normal 0-0.5 [facility] Comment on above: Performed By: #### E NATALIE CBC, CMP #### [address] Comprehensive Metabolic Pane tommie 09-27-2023 Albumin [Mass/Vol] 4.3 g/dL Normal 3.5-5.7 [facility] Comment on above: Performed By: #### E NATALIE CBC, CMP #### [address] Creatinine Clr Calc Pharmacy 105.57 Normal [facility] Comment on above: Performed By: #### E NATALIE CBC, CMP #### [address] GFR/1.73 sq M.predicted MDRD (S/P/Bld) [Vol rate/Area] mL/min/{1.73_m2} Normal [facility] Comment on above: Performed By: #### E NATALIE CBC, CMP #### [address] Creatinine [Mass/volume] in Serum or PlasmaOrdered By: Kelly Hough on 09-27-2023 Creatinine [Mass/Vol] 0.72 mg/dL Normal 0.60-1.20 [facility] Comment on above: Performed By: #### E NATALIE CBC, CMP #### [address] Erythrocyte distribution wid th [Ratio] by Automated countOrdered By: Kelly Hough on 09-27-2023 Erythrocyte distribution width (RBC) [Ratio] 13.7 % Normal 11.9-15.3 [facility] Comment on above: Performed By: #### E NATALIE, CBC, CMP #### [facility] [address] [place] [address] [place] Erythrocytes [#/volume] in B lood by Automated countOrdered By: Kelly Ryannemesio on 09-27-2023 RBC (Bld) [#/Vol] 4.68 10*6/uL Normal 3.60-5.00 [facility] Comment on above: Performed By: #### E NATALIE, CBC, CMP #### [facility] [address] Ferritin [Mass/volume] in Se rum or PlasmaOrdered By: Kelly France on 09-27-2023 Ferritin [Mass/Vol] 171.3 ng/mL Normal 11.0-306.8 [facility] Comment on above: Performed By: #### E NATALIE, CBC, CMP #### [facility] [address] Folate [Mass/volume] in Seru m or PlasmaOrdered By: Kelly France on 09-27-2023 Folate [Mass/Vol] 5.5 ng/mL >5.9 [facility] Comment on above: Folate reference ran ge: >5.9 ng/mlThe WHO technical consultation on folate and vitamin [id number] has determined that folate concentrations lessthan 4 ng/ml are considered deficient. Glucose [Mass/volume] in Ser um or PlasmaOrdered By: Kelly Ryannemesio on 09-27-2023 Glucose [Mass/Vol] 113 mg/dL High 70-100 [facility] Comment on above: ADA recommended refe rence rangeRandom Glucose Reference Range is dependent on time and content of last meal. Glucose of more than 200 mg/dL in a nonstressed, ambulatory subject supports the diagnosis of Diabetes Mellitus. Result Comment: [place] om Glucose Reference Range is dependent on time and content of last meal. Glucose of more than 200 mg/dL in a nonstressed, ambulatory subject supports the diagnosis of Diabetes Mellitus. ADA recommended reference range Performed By: #### E NATALIE, CBC, CMP #### [facility] [address] [place] [address] HIV 1/O/2 Antigen/Antibodyon 09-27-2023 HIV Screen 4th Generation Non-Reactive Normal Non Reactive [facility] Comment on above: Order Comment: Adelina n for Exam Screening for STD (sexually transmitted disease) Result Comment: HIV Negative HIV-1/HIV-2 antibodies and HIV-1 p24 antigen were NOT detected. There is no laboratory evidence of HIV infection. Performed at: [email or web address] [employer] [id number] Academic Adviser: Alan Macias PhD, Phone: [phone] Performed By: #### E NATALIE, CBC, CMP #### [facility] [address] [place] [address] HIV 1 and HIV-2 antibody ass ay with HIV-1 p24 antigen detectionOrdered By: Yudelka Lopez on 09-27-2023 HIV 1+2 Ab+HIV1 p24 Ag IA Ql Non-Reactive Non Reactive [facility] Comment on above: HIV NegativeHIV-1/HI V-2 antibodies and HIV-1 p24 antigen were NOTdetected. There is no laboratory evidence of HIV infection.Performed at: [email or web address] [employer] [id number] Director: Alan Macias PhD, Phone: [phone] Hematocrit [Volume Fraction] of Blood by Automated countOrdered By: Kelly Hough on 09-27-2023 Hematocrit (Bld) [Volume fraction] 34.8 % Normal 34.0-46.4 [facility] Comment on above: Performed By: #### E NATALIE, CBC, CMP #### [facility] [address] [place] [address] Hemoglobin [Mass/volume] in BloodOrdered By: Kelly Hough on 09-27-2023 Hemoglobin (Bld) [Mass/Vol] 11.0 g/dL Low 11.8-15.4 [facility] Comment on above: Performed By: #### E NATALIE, CBC, CMP #### [facility] [address] [place] [address] Iron [Mass/volume] in Serum or PlasmaOrdered By: Kelly Hough on 09-27-2023 Iron [Mass/Vol] 59 ug/dL Normal 50-212 [facility] Comment on above: Performed By: #### E NATALIE, CBC, CMP #### [facility] [address] Iron and TIBC Profileon 09-17 % Iron Saturation 25.5 % Normal 20-50 [facility] Comment on above: Performed By: #### E NATALIE, CBC, CMP #### [facility] [address] Total Iron Binding Capacity 231 ug/dL Low 255-450 [facility] Comment on above: Performed By: #### E NATALIE, CBC, CMP #### [facility] [address] Iron binding capacity [Mass/ volume] in Serum or PlasmaOrdered By: Kelly Hough on 09-27-2023 Iron binding capacity [Mass/Vol] 231 ug/dL 255-450 [facility] Iron saturation [Mass Fracti on] in Serum or PlasmaOrdered By: Kelly Hough on 09-27-2023 Iron saturation [Mass fraction] 25.5 % 20-50 [facility] Leukocytes [#/volume] correc delmer for nucleated erythrocytes in Blood by Automated counOrdered By: Kelly Hough on 09-27-2023 WBC corrected for nucl RBC Auto (Bld) [#/Vol] 8.3 10*3/uL 3.8-11.6 [facility] Leukocytes [#/volume] in Blo od by Automated countOrdered By: Kelly Hough on 09-27-2023 WBC (Bld) [#/Vol] 8.3 10*3/uL Normal 3.8-11.6 [facility] Comment on above: Performed By: #### E NATALIE, CBC, CMP #### [facility] [address] Lymphocytes [#/volume] in Bl ood by Automated countOrdered By: Kelly Hough on 09-27-2023 Lymphocytes (Bld) [#/Vol] 2.1 10*3/uL Normal 1.00-4.8 [facility] Comment on above: Performed By: #### E NATALIE, CBC, CMP #### [address] Lymphocytes/100 leukocytes i n Blood by Automated countOrdered By: Kelly France on 09-27-2023 Lymphocytes/100 WBC (Bld) 24.7 % Normal . [facility] Comment on above: Performed By: #### E NATALIE, CBC, CMP #### [address] MCH [Entitic mass] by Automa delmer countOrdered By: Kelly France on 09-27-2023 MCH (RBC) [Entitic mass] 23.5 pg Low 24.7-34.3 [facility] Comment on above: Performed By: #### E NATALIE, CBC, CMP #### [address] MCHC Auto (RBC) [Mass/Vol]Or dered By: Kelly France on 09-27-2023 MCHC (RBC) [Mass/Vol] 31.6 g/dL 32.0-35.0 [facility] MCV [Entitic volume] by Auto mated countOrdered By: Kelly France on 09-27-2023 MCV (RBC) [Entitic vol] 74.4 fL Low 80-100 [facility] Comment on above: Performed By: #### E NATALIE, CBC, CMP #### [address] Neutrophils [#/volume] in Bl ood by Automated countOrdered By: Kelly France on 09-27-2023 Neutrophils (Bld) [#/Vol] 5.8 10*3/uL Normal 1.8-7.7 [facility] Comment on above: Performed By: #### E NATALIE, CBC, CMP #### [address] No Panel InformationOrdered By: Kelly Hough on 09-27-2023 Estimated GFR (CKD-EPI) > 60.0 mL/Min [facility] Creatinine Clearance (Chem 105.57 [facility] Nucleated erythrocytes [Pres ence] in Blood by Automated countOrdered By: Kelly Ryannemesio on 09-27-2023 Nucleated RBC Auto Ql (Bld) 0.1 /100{WBC} 0-0.5 [facility] Platelet mean volume [Entiti c volume] in Blood by Automated countOrdered By: Kelly Ryannemesio on 09-27-2023 Platelet mean volume (Bld) [Entitic vol] 9.3 fL Normal 6.3-10.7 [facility] Comment on above: Performed By: #### E NATALIE, CBC, CMP #### [facility] [address] [place] [address] [place] Platelets [#/volume] in Bloo d by Automated countOrdered By: Kelly France on 09-27-2023 Platelets (Bld) [#/Vol] 197 10*3/uL Normal 150-450 [facility] Comment on above: Performed By: #### E NATALIE, CBC, CMP #### [facility] [address] [place] [address] [place] Potassium [Moles/volume] in Serum or PlasmaOrdered By: Kelly France on 09-27-2023 Potassium [Moles/Vol] 3.4 mmol/L Low 3.5-5.1 [facility] Comment on above: Performed By: #### E NATALIE, CBC, CMP #### [facility] [address] [place] [address] [place] Protein [Mass/volume] in Ser um or PlasmaOrdered By: Kelly France on 09-27-2023 Protein [Mass/Vol] 6.8 g/dL Normal 6.4-8.9 [facility] Comment on above: Performed By: #### E NATALIE, CBC, CMP #### [facility] [address] [place] [address] [place] RPR w/rfx to Quant TP Abson 09-27-2023 RPR, Rfx Quant RPR Non-Reactive Normal Non Reactive [facility] Comment on above: Order Comment: Reaso n for Exam Screening for STD (sexually transmitted disease) Result Comment: Perf ormed at: CB - [facility] [address] [place], [place] [id number] Academic Adviser: Alan Macias PhD, Phone: [phone] PERFORMED BY: [place] [address] PATHOLOGIST BOTTLE FILLER CLAU ZAVALA M.D. Performed By: #### E NATALIE CBC, CMP #### [place] [address] [place] Reagin Ab [Presence] in Seru m by RPROrdered By: Yudelka Lopez on 09-27-2023 Reagin Ab RPR Ql (S) Non-Reactive Non Reactive [facility] Comment on above: Performed at: [facility] - [facility] [address] [id number] Director: Alan Macias PhD, Phone: [phone] Serum globulin measurement b y calculation (mass/volume)Ordered By: Kelly Hough on 09-27-2023 Globulin (S) [Mass/Vol] 2.5 g/dL [facility] Comment on above: Performed By: #### E WANDA ESTRADA, CMP #### [address] Serum or plasma albumin/glob ulin mass ratioOrdered By: eKlly Hough on 09-27-2023 Albumin/Globulin [Mass ratio] 1.7 {ratio} [facility] Comment on above: Performed By: #### E WANDA ESTRADA, CMP #### [facility] [address] [place] [address] Serum or plasma anion gap de terminationOrdered By: Kelly Hough on 09-27-2023 Anion gap [Moles/Vol] 7.1 mmol/L Normal 6.0-15.0 [facility] Comment on above: Performed By: #### E WANDA ESTRADA, CMP #### [address] Sodium [Moles/volume] in Ser um or PlasmaOrdered By: Kelly Hough on 09-27-2023 Sodium [Moles/Vol] 140 mmol/L Normal 136-145 [facility] Comment on above: Performed By: #### E NATALIE, CBC, CMP #### [address] Transferrin [Mass/volume] in Serum or PlasmaOrdered By: Kelly Hough on 09-27-2023 Transferrin [Mass/Vol] 165 mg/dL Low 203-362 [facility] Comment on above: Performed By: #### E NATALIE, CBC, CMP #### [address] Urea nitrogen [Mass/volume] in Serum or PlasmaOrdered By: Kelly Hough on 09-27-2023 Urea nitrogen [Mass/Vol] 10 mg/dL Normal 7-25 [facility] Comment on above: Performed By: #### E NATALIE, CBC, CMP #### [address] Vit. B12/Folate Profileon Folate 5.5 ng/mL Low >5.9 [facility] Comment on above: Result Comment: Breana te reference range: >5.9 ng/ml The WHO technical consultation on folate and vitamin b12 deficiencies has determined that folate concentrations less than 4 ng/ml are considered deficient. PERFORMED BY: [place] [address] PATHOLOGIST BOTTLE FILLER CLAU ZAVALA M.D. Performed By: #### E NATALIE, CBC, CMP #### [address] Vitamin B12 ser/plasOrdered By: Kelly Hough on 09-27-2023 Cobalamin (Vitamin B12) [Mass/Vol] 446 pg/mL Normal 180-914 [facility] Comment on above: Performed By: #### E NATALIE, CBC, CMP #### [address] Absolute reticulocyte countO rdered By: Kelly Hough on 06-27-2023 Reticulocytes (Bld) [#/Vol] 0.066 10*6/uL 0.024-0.08 4 [facility] Haptoglobin [Mass/volume] in Serum or PlasmaOrdered By: Kelly Hough on 06-27-2023 Haptoglobin [Mass/Vol] 184 mg/dL 44-215 [facility] Lactate dehydrogenase [Enzym atic activity/volume] in Serum or Plasma by Lactate to pyOrdered By: Kelly Hough on 06-27-2023 LDH Lactate to pyruvate reaction [Catalytic activity/Vol] 137 U/L 140-271 [facility] Monocyte %Ordered By: Kelly amaya on 06-27-2023 Monocyte % 145 ug/dL 80-158 [facility] Comment on above: This test was develo ped and its performance characteristicsdetermined by [employer]. It has not been cleared orapproved by the Food and Drug Administration. Detection Limit = 5Performed at: [facility] [employer] [id number] Director: Artemio Guillen MD, Phone: [phone] Reticulocytes/100 RBC Auto ( Bld)Ordered By: Kelly Hough on 06-27-2023 Reticulocytes/100 RBC (Bld) 1.4 % 0.5-1.5 [facility] Alanine aminotransferase [En zymatic activity/volume] in Serum or PlasmaOrdered By: Kelly Hough on 06-14-2023 ALT [Catalytic activity/Vol] 13 U/L 7-52 [facility] Albumin [Mass/volume] in Ser um or Plasma by Bromocresol green (BCG) dye binding methoOrdered By: Kelly Hough on 06-14-2023 Albumin BCG dye [Mass/Vol] 3.8 g/dL 3.5-5.7 [facility] Alkaline phosphatase [Enzyma tic activity/volume] in Serum or PlasmaOrdered By: Kelly Hough on 06-14-2023 ALP [Catalytic activity/Vol] 33 U/L 34-104 [facility] Aspartate aminotransferase [ Enzymatic activity/volume] in Serum or PlasmaOrdered By: Kelly Hough on 06-14-2023 AST [Catalytic activity/Vol] 10 U/L 13-39 [facility] Basophils Auto (Bld) [#/Vol] Ordered By: Kelly Hough on 06-14-2023 Basophils (Bld) [#/Vol] 0.0 10*3/uL 0.0-0.2 [facility] Basophils/100 WBC Auto (Bld) Ordered By: Kelly Hough on 06-14-2023 Basophils/100 WBC (Bld) 0.4 % . [facility] Bilirubin.total [Mass/volume ] in Serum or PlasmaOrdered By: Kelly Hough on 06-14-2023 Bilirubin [Mass/Vol] 0.4 mg/dL 0.3-1.0 [facility] Calcium [Mass/volume] in Ser um or PlasmaOrdered By: Kelly Hough on 06-14-2023 Calcium [Mass/Vol] 8.8 mg/dL 8.6-10.3 [facility] Carbon dioxide, total [Moles /volume] in Serum or PlasmaOrdered By: Kelly Hough on 06-14-2023 CO2 [Moles/Vol] 28.5 mmol/L 21.0-31.0 [facility] Chloride [Moles/volume] in S salas or PlasmaOrdered By: Kelly Hough on 06-14-2023 Chloride [Moles/Vol] 104 mmol/L 98-107 [facility] Creatinine [Mass/volume] in Serum or PlasmaOrdered By: Kelly Hough on 06-14-2023 Creatinine [Mass/Vol] 0.82 mg/dL 0.60-1.20 [facility] Eosinophils Auto (Bld) [#/Vo l]Ordered By: Kelly Hough on 06-14-2023 Eosinophils (Bld) [#/Vol] 0.2 10*3/uL 0.0-0.45 [facility] Eosinophils/100 WBC Auto (Bl d)Ordered By: Kelly Hough on 06-14-2023 Eosinophils/100 WBC (Bld) 1.9 % . [facility] Erythrocyte distribution wid th Auto (RBC) [Ratio]Ordered By: Kelly Hough on 06-14-2023 Erythrocyte distribution width (RBC) [Ratio] 13.9 % 11.9-15.3 [facility] Ferritin [Mass/volume] in Se rum or PlasmaOrdered By: Kelly Hough on 06-14-2023 Ferritin [Mass/Vol] 146.0 ng/mL 11.0-306.8 [facility] Globulin Calc (S) [Mass/Vol] Ordered By: Kelly Hough on 06-14-2023 Globulin (S) [Mass/Vol] 2.0 g/dL [facility] Glucose [Mass/volume] in Ser um or PlasmaOrdered By: Kelly Hough on 06-14-2023 Glucose [Mass/Vol] 86 mg/dL 70-100 [facility] Comment on above: ADA recommended refe rence rangeRandom Glucose Reference Range is dependent on time and content of last meal. Glucose of more than 200 mg/dL in a nonstressed, ambulatory subject supports the diagnosis of Diabetes Mellitus. Hematocrit Auto (Bld) [Volum e fraction]Ordered By: Kelly Hough on 06-14-2023 Hematocrit (Bld) [Volume fraction] 32.4 % 34.0-46.4 [facility] Hemoglobin [Mass/volume] in BloodOrdered By: Kelly Hough on 06-14-2023 Hemoglobin (Bld) [Mass/Vol] 10.3 g/dL 11.8-15.4 [facility] Iron [Mass/volume] in Serum or PlasmaOrdered By: Kelly Hough on 06-14-2023 Iron [Mass/Vol] 62 ug/dL 50-212 [facility] Iron binding capacity [Mass/ volume] in Serum or PlasmaOrdered By: Kelly Hough on 06-14-2023 Iron binding capacity [Mass/Vol] 190 ug/dL 255-450 [facility] Iron saturation [Mass Fracti on] in Serum or PlasmaOrdered By: Kelly Hough on 06-14-2023 Iron saturation [Mass fraction] 32.6 % 20-50 [facility] Leukocytes [#/volume] correc delmer for nucleated erythrocytes in Blood by Automated counOrdered By: Kelly Hough on 06-14-2023 WBC corrected for nucl RBC Auto (Bld) [#/Vol] 8.4 10*3/uL 3.8-11.6 [facility] Lymphocytes Auto (Bld) [#/Vo l]Ordered By: Kelly Hough on 06-14-2023 Lymphocytes (Bld) [#/Vol] 2.6 10*3/uL 1.00-4.8 [facility] Lymphocytes/100 WBC Auto (Bl d)Ordered By: Kelly Hough on 06-14-2023 Lymphocytes/100 WBC (Bld) 31.3 % . [facility] MCH Auto (RBC) [Entitic mass ]Ordered By: Kelly Hough on 06-14-2023 MCH (RBC) [Entitic mass] 23.8 pg 24.7-34.3 [facility] MCHC Auto (RBC) [Mass/Vol]Or dered By: Kelly Hough on 06-14-2023 MCHC (RBC) [Mass/Vol] 31.7 g/dL 32.0-35.0 [facility] MCV Auto (RBC) [Entitic vol] Ordered By: Kelly Hough on 06-14-2023 MCV (RBC) [Entitic vol] 75.2 fL 80-100 [facility] Monocytes Auto (Bld) [#/Vol] Ordered By: Kelly Hough on 06-14-2023 Monocytes (Bld) [#/Vol] 0.5 10*3/uL 0.0-0.8 [facility] Monocytes/100 WBC Auto (Bld) Ordered By: Kelly Hough on 06-14-2023 Monocytes/100 WBC (Bld) 5.9 % . [facility] Neutrophils Auto (Bld) [#/Vo l]Ordered By: Kelly Hough on 06-14-2023 Neutrophils (Bld) [#/Vol] 5.1 10*3/uL 1.8-7.7 [facility] Neutrophils/100 WBC Auto (Bl d)Ordered By: Kelly Hough on 06-14-2023 Neutrophils/100 WBC (Bld) 60.5 % . [facility] No Panel InformationOrdered By: Kelly Hough on 06-14-2023 Estimated GFR (CKD-EPI) > 60.0 mL/Min [facility] Creatinine Clearance (Chem 93.10 [facility] Nucleated erythrocytes [Pres ence] in Blood by Automated countOrdered By: Kelly Hough on 06-14-2023 Nucleated RBC Auto Ql (Bld) 0.1 /100{WBC} 0-0.5 [facility] Platelet mean volume Auto (B ld) [Entitic vol]Ordered By: Kelly Hough on 06-14-2023 Platelet mean volume (Bld) [Entitic vol] 9.6 fL 6.3-10.7 [facility] Platelets Auto (Bld) [#/Vol] Ordered By: Kelly Hough on 06-14-2023 Platelets (Bld) [#/Vol] 189 10*3/uL 150-450 [facility] Potassium [Moles/volume] in Serum or PlasmaOrdered By: Kelly Hough on 06-14-2023 Potassium [Moles/Vol] 4.1 mmol/L 3.5-5.1 [facility] Protein [Mass/volume] in Ser um or PlasmaOrdered By: Kelly Hough on 06-14-2023 Protein [Mass/Vol] 5.8 g/dL 6.4-8.9 [facility] RBC Auto (Bld) [#/Vol]Ordere d By: Kelly Hough on 06-14-2023 RBC (Bld) [#/Vol] 4.31 10*6/uL 3.60-5.00 [facility] Serum or plasma albumin/glob ulin mass ratioOrdered By: Kelly Hough on 06-14-2023 Albumin/Globulin [Mass ratio] 1.9 {ratio} [facility] Serum or plasma anion gap de terminationOrdered By: Kelly Hough on 06-14-2023 Anion gap [Moles/Vol] 10.6 mmol/L 6.0-15.0 [facility] Sodium [Moles/volume] in Ser um or PlasmaOrdered By: Kelly Hough on 06-14-2023 Sodium [Moles/Vol] 139 mmol/L 136-145 [facility] Thyrotropin [Units/volume] i n Serum or PlasmaOrdered By: Dayne Horton on 06-14-2023 TSH Qn 1.43 m[IU]/L 0.45-5.33 [facility] Thyroxine (T4) free [Mass/vo lume] in Serum or PlasmaOrdered By: Dayne Horton on 06-14-2023 Free T4 [Mass/Vol] 1.22 ng/dL 0.61-1.12 [facility] Transferrin [Mass/volume] in Serum or PlasmaOrdered By: Kelly Hough on 06-14-2023 Transferrin [Mass/Vol] 136 mg/dL 203-362 [facility] Triiodothyronine (T3) Free [ Mass/volume] in Serum or PlasmaOrdered By: Dayne Horton on 06-14-2023 Free T3 [Mass/Vol] 3.99 pg/mL 2.50-3.90 [facility] Urea nitrogen [Mass/volume] in Serum or PlasmaOrdered By: Kelly Hough on 06-14-2023 Urea nitrogen [Mass/Vol] 11 mg/dL 7- [facility] WBC Auto (Bld) [#/Vol]Ordere d By: Kelly Hough on 06-14-2023 WBC (Bld) [#/Vol] 8.4 10*3/uL 3.8-11.6 [facility] Provider Letteron 04-09-2023 Provider Letter (Inserted Image. Radha ble to display) April 09, 2023 LEANDRA FONSECA [address] [place] [id number] : 1990 Dear Leandra , We have been trying to reach you with no success. It is important that you return our call regarding your referral from Kelvin Hough_ upon receiving this letter. Also, at the time of your call, please provide us with your current information. Thank you for your prompt attention to this matter. Sincerely, General Surgery [facility] [phone] [facility] Lab Reportson 04-04-2023 Lab Reports [id number]:127 [facility] Physician Referralon 023 Physician Referral [id number]:127 [facility] Albumin [Mass/volume] in Ser um or PlasmaOrdered By: Kelly Hough on 03-21-2023 Albumin [Mass/Vol] 3.6 g/dL 2.9-4.4 [facility] IgA [Mass/volume] in Serum o r PlasmaOrdered By: Kelly France on 03-21-2023 IgA [Mass/Vol] 158 mg/dL 87-352 [facility] IgG [Mass/volume] in Serum o r PlasmaOrdered By: Kelly Hough on 03-21-2023 IgG [Mass/Vol] 1046 mg/dL [phone] [facility] IgM [Mass/volume] in Serum o r PlasmaOrdered By: Kelly Hough on 03-21-2023 IgM [Mass/Vol] 302 mg/dL 26-217 [facility] Comment on above: Performed at: [facility] [address] [id number] Director: Alan Macias PhD, Phone: [phone] Immunoglobulin light chains. kappa.free [Mass/volume] in SerumOrdered By: Kelly Hough on 03-21-2023 Immunoglobulin light chains.kappa.free (S) [Mass/Vol] 19.2 mg/L 3.3-19.4 [facility] Immunoglobulin light chains. kappa.free/Immunoglobulin light chains.lambda.free [MassOrdered By: Kelly Hough on 03-21-2023 Immunoglobulin light chains.kappa.free/Immu noglobulin light chains.lambda.free (S) [Mass ratio] 1.31 0.26-1.65 [facility] Comment on above: Performed at: [facility] [place] [id number] Director: Alan Macias PhD, Phone: [phone] Immunoglobulin light chains. lambda.free [Mass/volume] in Serum or PlasmaOrdered By: Kelly Hough on 03-21-2023 Immunoglobulin light chains.lambda.free [Mass/Vol] 14.7 mg/L 5.7-26.3 [facility] No Panel InformationOrdered By: Kelly Hough on 03-21-2023 Protein Electrophoresis M-Emanuel Not observed g/dL Not Observed [facility] Protein Electrophoresis Note See comment . [facility] Comment on above: Protein electrophore sis scan will follow via computer,mail, or materials mgmt tech delivery. Serum Immunofixation See comment . [facility] Comment on above: No monoclonality det ected. Slides for Pathologist Review Ordered path review [facility] Protein [Mass/volume] in Ser um or PlasmaOrdered By: Kelly Hough on 03-21-2023 Protein [Mass/Vol] 6.5 g/dL 6.0-8.5 [facility] Serum globulin measurement ( mass/volume)Ordered By: Kelly Hough on 03-21-2023 Globulin (S) [Mass/Vol] 2.9 g/dL 2.2-3.9 [facility] Serum or plasma albumin/glob ulin mass ratioOrdered By: Kelly Hough on 03-21-2023 Albumin/Globulin [Mass ratio] 1.2 {ratio} 0.7-1.7 [facility] Serum or plasma alpha 1 glob ulin measurement by electrophoresis (mass/volume)Ordered By: Klely Hough on 03-21-2023 Alpha 1 globulin Elph [Mass/Vol] 0.3 g/dL 0.0-0.4 [facility] Serum or plasma alpha 2 glob ulin measurement by electrophoresis (mass/volume)Ordered By: Kelly Hough on 03-21-2023 Alpha 2 globulin Elph [Mass/Vol] 0.8 g/dL 0.4-1.0 [facility] Serum or plasma beta globuli n measurement by electrophoresis (mass/volume)Ordered By: Kelly Hough on 03-21-2023 Beta globulin Elph [Mass/Vol] 0.7 g/dL 0.7-1.3 [facility] Serum or plasma gamma globul in measurement by electrophoresis (mass/volume)Ordered By: Kelly Hough on 03-21-2023 Gamma globulin Elph [Mass/Vol] 1.1 g/dL 0.4-1.8 [facility] Alanine aminotransferase [En zymatic activity/volume] in Serum or PlasmaOrdered By: Jim Vega on 02-06-2023 ALT [Catalytic activity/Vol] 10 U/L 7-52 [facility] Albumin [Mass/volume] in Ser um or Plasma by Bromocresol green (BCG) dye binding methoOrdered By: Jim Vega on 02-06-2023 Albumin BCG dye [Mass/Vol] 4.2 g/dL 3.5-5.7 [facility] Alkaline phosphatase [Enzyma tic activity/volume] in Serum or PlasmaOrdered By: Jim Vega on 02-06-2023 ALP [Catalytic activity/Vol] 45 U/L 34-104 [facility] Aspartate aminotransferase [ Enzymatic activity/volume] in Serum or PlasmaOrdered By: Jim Vega on 02-06-2023 AST [Catalytic activity/Vol] 12 U/L 13-39 [facility] Automated erythrocytes count in urine sediment (number/area)Ordered By: Jim Vega on 02-06-2023 RBC Auto (Urine sed) [#/Area] 5-9 [HPF] 0-4 [facility] Automated leukocytes count i n urine sediment (number/area)Ordered By: Jim Vega on 02-06-2023 WBC Auto (Urine sed) [#/Area] 3-4 [HPF] 0-4 [facility] Basophils Auto (Bld) [#/Vol] Ordered By: Jim Vega on 02-06-2023 Basophils (Bld) [#/Vol] 0.0 10*3/uL 0.0-0.2 [facility] Basophils/100 WBC Auto (Bld) Ordered By: Jim Vega on 02-06-2023 Basophils/100 WBC (Bld) 0.7 % . [facility] Bilirubin Test strip Ql (U)O rdered By: Jim Vega on 02-06-2023 Bilirubin Ql (U) Negative Negative [facility] Bilirubin.total [Mass/volume ] in Serum or PlasmaOrdered By: Jim Vega on 02-06-2023 Bilirubin [Mass/Vol] 0.5 mg/dL 0.3-1.0 [facility] Calcium [Mass/volume] in Ser um or PlasmaOrdered By: Jim Vega on 02-06-2023 Calcium [Mass/Vol] 8.5 mg/dL 8.6-10.3 [facility] Carbon dioxide, total [Moles /volume] in Serum or PlasmaOrdered By: Jim Vega on 02-06-2023 CO2 [Moles/Vol] 26.0 mmol/L 21.0-31.0 [facility] Chloride [Moles/volume] in S salas or PlasmaOrdered By: Jim Vega on 02-06-2023 Chloride [Moles/Vol] 105 mmol/L 98-107 [facility] Color Auto (U)Ordered By: Narinder red Silvia on 02-06-2023 Color (U) Yellow Yellow [facility] Creatinine [Mass/volume] in Serum or PlasmaOrdered By: Jim Vega on 02-06-2023 Creatinine [Mass/Vol] 0.78 mg/dL 0.60-1.20 [facility] Eosinophils Auto (Bld) [#/Vo l]Ordered By: Jim Vega on 02-06-2023 Eosinophils (Bld) [#/Vol] 0.1 10*3/uL 0.0-0.45 [facility] Eosinophils/100 WBC Auto (Bl d)Ordered By: Jim Vega on 02-06-2023 Eosinophils/100 WBC (Bld) 2.2 % . [facility] Erythrocyte distribution wid th Auto (RBC) [Ratio]Ordered By: Jim Vega on 02-06-2023 Erythrocyte distribution width (RBC) [Ratio] 14.3 % 11.9-15.3 [facility] Globulin Calc (S) [Mass/Vol] Ordered By: Jim Vega on 02-06-2023 Globulin (S) [Mass/Vol] 3.0 g/dL [facility] Glucose [Mass/volume] in Ser um or PlasmaOrdered By: Jim Vega on 02-06-2023 Glucose [Mass/Vol] 92 mg/dL 70-100 [facility] Comment on above: ADA recommended refe rence rangeRandom Glucose Reference Range is dependent on time and content of last meal. Glucose of more than 200 mg/dL in a nonstressed, ambulatory subject supports the diagnosis of Diabetes Mellitus. HCG ( test) IAJorgerapi d Ql (U)Ordered By: Jim Vega on 02-06-2023 HCG ( test) Ql (U) Negative [facility] Hematocrit Auto (Bld) [Volum e fraction]Ordered By: Jim Vega on 02-06-2023 Hematocrit (Bld) [Volume fraction] 35.2 % 34.0-46.4 [facility] Hemoglobin [Mass/volume] in BloodOrdered By: Jim Vega on 02-06-2023 Hemoglobin (Bld) [Mass/Vol] 11.0 g/dL 11.8-15.4 [facility] Ketones Auto test strip (U) [Mass/Vol]Ordered By: Jim Vega on 02-06-2023 Ketones (U) [Mass/Vol] Negative Negative Fi [facility] - UrinalysisOrder ed By: Jim Vega on 02-06-2023 Hyaline casts LM Ql (Urine sed) 0-8 [LPF] 0-8 [facility] Leukocytes [#/volume] correc delmer for nucleated erythrocytes in Blood by Automated counOrdered By: Jim Vega on 02-06-2023 WBC corrected for nucl RBC Auto (Bld) [#/Vol] 5.3 10*3/uL 3.8-11.6 [facility] Lymphocytes Auto (Bld) [#/Vo l]Ordered By: Jim Vega on 02-06-2023 Lymphocytes (Bld) [#/Vol] 1.4 10*3/uL 1.00-4.8 [facility] Lymphocytes/100 WBC Auto (Bl d)Ordered By: Jim Vega on 02-06-2023 Lymphocytes/100 WBC (Bld) 25.8 % . [facility] MCH Auto (RBC) [Entitic mass ]Ordered By: Jim Vega on 02-06-2023 MCH (RBC) [Entitic mass] 22.8 pg 24.7-34.3 [facility] MCHC Auto (RBC) [Mass/Vol]Or dered By: Jim Vega on 02-06-2023 MCHC (RBC) [Mass/Vol] 31.1 g/dL 32.0-35.0 [facility] MCV Auto (RBC) [Entitic vol] Ordered By: Jim Vega on 02-06-2023 MCV (RBC) [Entitic vol] 73.2 fL 80-100 [facility] Monocyte distribution width [Entitic volume] in Blood by AutomatedOrdered By: Jim Vega on 02-06-2023 Monocyte distribution width Auto (Bld) [Entitic vol] 18.18 % 0.00-20.00 [facility] Monocytes Auto (Bld) [#/Vol] Ordered By: Jim Vega on 02-06-2023 Monocytes (Bld) [#/Vol] 0.4 10*3/uL 0.0-0.8 [facility] Monocytes/100 WBC Auto (Bld) Ordered By: Jim Vega on 02-06-2023 Monocytes/100 WBC (Bld) 7.1 % . [facility] Neutrophils Auto (Bld) [#/Vo l]Ordered By: Jmi Vega on 02-06-2023 Neutrophils (Bld) [#/Vol] 3.4 10*3/uL 1.8-7.7 [facility] Neutrophils/100 WBC Auto (Bl d)Ordered By: Jim Vega on 02-06-2023 Neutrophils/100 WBC (Bld) 64.2 % . [facility] Nitrite Test strip Ql (U)Ord ered By: Jim Vega on 02-06-2023 Nitrite Ql (U) Negative Negative [facility] No Panel InformationOrdered By: Jim Vega on 02-06-2023 Estimated GFR (CKD-EPI) > 60.0 mL/Min [facility] Creatinine Clearance (Chem 100.96 [facility] Nucleated erythrocytes [Pres ence] in Blood by Automated countOrdered By: Jim Vega on 02-06-2023 Nucleated RBC Auto Ql (Bld) 0.1 /100{WBC} 0-0.5 [facility] Platelet mean volume Auto (B ld) [Entitic vol]Ordered By: Jim Vega on 02-06-2023 Platelet mean volume (Bld) [Entitic vol] 9.4 fL 6.3-10.7 [facility] Platelets Auto (Bld) [#/Vol] Ordered By: Jim Vega on 02-06-2023 Platelets (Bld) [#/Vol] 175 10*3/uL 150-450 [facility] Potassium [Moles/volume] in Serum or PlasmaOrdered By: Jim Vega on 02-06-2023 Potassium [Moles/Vol] 3.5 mmol/L 3.5-5.1 [facility] Protein Auto test strip (U) [Mass/Vol]Ordered By: Jim Vega on 02-06-2023 Protein (U) [Mass/Vol] Negative Negative [facility] Protein [Mass/volume] in Ser um or PlasmaOrdered By: Jim Vega on 02-06-2023 Protein [Mass/Vol] 7.2 g/dL 6.4-8.9 [facility] RBC Auto (Bld) [#/Vol]Ordere d By: Jim Vega on 02-06-2023 RBC (Bld) [#/Vol] 4.81 10*6/uL 3.60-5.00 [facility] Serum or plasma albumin/glob ulin mass ratioOrdered By: Jim Vega on 02-06-2023 Albumin/Globulin [Mass ratio] 1.4 {ratio} [facility] Serum or plasma anion gap de terminationOrdered By: Jim Vega on 02-06-2023 Anion gap [Moles/Vol] 9.5 mmol/L 6.0-15.0 [facility] Sodium [Moles/volume] in Ser um or PlasmaOrdered By: Jim Vega on 02-06-2023 Sodium [Moles/Vol] 137 mmol/L 136-145 [facility] Specific gravity Auto test s trip (U) [Rel density]Ordered By: Jim Vega on 02-06-2023 Specific gravity (U) [Rel density] 1.010 1.001-1.03 0 [facility] Squamous epithelial cells de tection in urine sediment by light microscopyOrdered By: Jim Vega on 02-06-2023 Epithelial cells.squamous LM Ql (Urine sed) 5-9 [HPF] 0-2 [facility] Urea nitrogen [Mass/volume] in Serum or PlasmaOrdered By: Jim Vega on 02-06-2023 Urea nitrogen [Mass/Vol] 11 mg/dL 7-25 [facility] Urine bacteria detection by automated methodOrdered By: Jim Vega on 02-06-2023 Bacteria Auto Ql (U) None seen None Seen [facility] Urine clarity by refractomet ry automatedOrdered By: Jim Vega on 02-06-2023 Clarity Refractometry automated (U) Clear Clear [facility] Urine glucose measurement by automated test strip (mass/volume)Ordered By: Jim Vega on 02-06-2023 Glucose Auto test strip (U) [Mass/Vol] Normal mg/dL Normal [facility] Urine hemoglobin detection b y automated test stripOrdered By: Jim Vega on 02-06-2023 Hemoglobin Auto test strip Ql (U) Trace Negative [facility] Urine leukocyte esterase det ection by automated test stripOrdered By: Jim Vega on 02-06-2023 Leukocyte esterase Auto test strip Ql (U) Negative Negative [facility] Urobilinogen Auto test strip (U) [Mass/Vol]Ordered By: Jim Vega on 02-06-2023 Urobilinogen (U) [Mass/Vol] Normal mg/dL Normal [facility] WBC Auto (Bld) [#/Vol]Ordere d By: Jim Vega on 02-06-2023 WBC (Bld) [#/Vol] 5.3 10*3/uL 3.8-11.6 [facility] pH Auto test strip (U)Ordere d By: Jim Vega on 02-06-2023 pH (U) 8.0 [pH] 5.0-9.0 [facility] Ferritin [Mass/volume] in Se rum or PlasmaOrdered By: Kelly Hough on 01-24-2023 Ferritin [Mass/Vol] 64.3 ng/mL 11.0-306.8 [facility] Iron [Mass/volume] in Serum or PlasmaOrdered By: Kelly Hough on 01-24-2023 Iron [Mass/Vol] 85 ug/dL 50-212 [facility] Iron binding capacity [Mass/ volume] in Serum or PlasmaOrdered By: Kelly Hough on 01-24-2023 Iron binding capacity [Mass/Vol] 227 ug/dL 255-450 [facility] Iron saturation [Mass Fracti on] in Serum or PlasmaOrdered By: Kelly Hough on 01-24-2023 Iron saturation [Mass fraction] 37.4 % 20-50 [facility] Transferrin [Mass/volume] in Serum or PlasmaOrdered By: Kelly Hough on 01-24-2023 Transferrin [Mass/Vol] 162 mg/dL 203-362 [facility] Basophils Auto (Bld) [#/Vol] Ordered By: Kelly Hough on 12-25-2022 Basophils (Bld) [#/Vol] 0.0 10*3/uL 0.0-0.2 [facility] Basophils/100 WBC Auto (Bld) Ordered By: Kelly Hough on 12-25-2022 Basophils/100 WBC (Bld) 0.3 % . [facility] C reactive protein [Mass/vol ume] in Serum or PlasmaOrdered By: Jose Shanks on 12-25-2022 CRP [Mass/Vol] < 0.5 mg/dL 0.0-0.5 [facility] Calprotectin [Mass/mass] in StoolOrdered By: Jose Shanks on 12-25-2022 Calprotectin (Stl) [Mass/Mass] 32 ug/g 0-120 [facility] Comment on above: Concentration Interp retation Follow-Up<16 - 50 ug/g Normal None>50 -120 ug/g Borderline Re-evaluate in 4-6 weeks >120 ug/g Abnormal Repeat as clinically indicatedPerformed at: - [facility] [address] [id number] Director: Artemio Guillen MD, Phone: [phone] Eosinophils Auto (Bld) [#/Vo l]Ordered By: Kelly Hough on 12-25-2022 Eosinophils (Bld) [#/Vol] 0.1 10*3/uL 0.0-0.45 [facility] Eosinophils/100 WBC Auto (Bl d)Ordered By: Kelly Hough on 12-25-2022 Eosinophils/100 WBC (Bld) 1.1 % . [facility] Erythrocyte distribution wid th Auto (RBC) [Ratio]Ordered By: Kelly Hough on 12-25-2022 Erythrocyte distribution width (RBC) [Ratio] 15.5 % 11.9-15.3 [facility] Erythrocyte sedimentation ra te by Photometric methodOrdered By: Jose Shanks on 12-25-2022 ESR Photometric method (Bld) [Velocity] 32 mm/hr 0-19 [facility] Ferritin [Mass/volume] in Se rum or PlasmaOrdered By: Kelly Hough on 12-25-2022 Ferritin [Mass/Vol] 58.3 ng/mL 11.0-306.8 [facility] Hematocrit Auto (Bld) [Volum e fraction]Ordered By: Kelly Hough on 12-25-2022 Hematocrit (Bld) [Volume fraction] 35.3 % 34.0-46.4 [facility] Hemoglobin [Mass/volume] in BloodOrdered By: Kelly Hough on 12-25-2022 Hemoglobin (Bld) [Mass/Vol] 11.0 g/dL 11.8-15.4 [facility] IgA [Mass/volume] in Serum o r PlasmaOrdered By: Jose Shanks on 12-25-2022 IgA [Mass/Vol] 164 mg/dL 87-352 [facility] Comment on above: Performed at: [address] [id number] Director: Alan Macias PhD, Phone: [phone] Iron [Mass/volume] in Serum or PlasmaOrdered By: Kelly Hough on 12-25-2022 Iron [Mass/Vol] 112 ug/dL 50-212 [facility] Iron binding capacity [Mass/ volume] in Serum or PlasmaOrdered By: Kelly Hough on 12-25-2022 Iron binding capacity [Mass/Vol] 241 ug/dL 255-450 [facility] Iron saturation [Mass Fracti on] in Serum or PlasmaOrdered By: Kelly Hough on 12-25-2022 Iron saturation [Mass fraction] 46.5 % 20-50 [facility] Leukocytes [#/volume] correc delmer for nucleated erythrocytes in Blood by Automated counOrdered By: Kelly Hough on 12-25-2022 WBC corrected for nucl RBC Auto (Bld) [#/Vol] 6.8 10*3/uL 3.8-11.6 [facility] Lymphocytes Auto (Bld) [#/Vo l]Ordered By: Kelly Hough on 12-25-2022 Lymphocytes (Bld) [#/Vol] 1.7 10*3/uL 1.00-4.8 [facility] Lymphocytes/100 WBC Auto (Bl d)Ordered By: Kelly Hough on 12-25-2022 Lymphocytes/100 WBC (Bld) 25.5 % . [facility] MCH Auto (RBC) [Entitic mass ]Ordered By: Kelly Hough on 12-25-2022 MCH (RBC) [Entitic mass] 22.3 pg 24.7-34.3 [facility] MCHC Auto (RBC) [Mass/Vol]Or dered By: Kelly Hough on 12-25-2022 MCHC (RBC) [Mass/Vol] 31.1 g/dL 32.0-35.0 [facility] MCV Auto (RBC) [Entitic vol] Ordered By: Kelly Hough on 12-25-2022 MCV (RBC) [Entitic vol] 71.8 fL 80-100 [facility] Monocytes Auto (Bld) [#/Vol] Ordered By: Kelly Hough on 12-25-2022 Monocytes (Bld) [#/Vol] 0.4 10*3/uL 0.0-0.8 [facility] Monocytes/100 WBC Auto (Bld) Ordered By: Kelly Hough on 12-25-2022 Monocytes/100 WBC (Bld) 6.3 % . [facility] Neutrophils Auto (Bld) [#/Vo l]Ordered By: Kelly Hough on 12-25-2022 Neutrophils (Bld) [#/Vol] 4.5 10*3/uL 1.8-7.7 [facility] Neutrophils/100 WBC Auto (Bl d)Ordered By: Kelly Hough on 12-25-2022 Neutrophils/100 WBC (Bld) 66.8 % . [facility] No Panel InformationOrdered By: Jose Shanks on 12-25-2022 Endomysial IgA Antibody Negative Negative [facility] Nucleated erythrocytes [Pres ence] in Blood by Automated countOrdered By: Kelly Hough on 12-25-2022 Nucleated RBC Auto Ql (Bld) 0.2 /100{WBC} 0-0.5 [facility] Platelet mean volume Auto (B ld) [Entitic vol]Ordered By: Kelly France on 12-25-2022 Platelet mean volume (Bld) [Entitic vol] 9.5 fL 6.3-10.7 [facility] Platelets Auto (Bld) [#/Vol] Ordered By: Kelly France on 12-25-2022 Platelets (Bld) [#/Vol] 191 10*3/uL 150-450 [facility] RBC Auto (Bld) [#/Vol]Ordere d By: Kelly France on 12-25-2022 RBC (Bld) [#/Vol] 4.92 10*6/uL 3.60-5.00 [facility] Serum gliadin peptide IgA an tibody assay (units/volume)Ordered By: Jose Shanks on 12-25-2022 Gliadin peptide IgA Qn (S) 7 units 0-19 [facility] Comment on above: Negative 0 - 19 Weak Positive 20 - 30 Moderate to Strong Positive >30 Serum gliadin peptide IgG an tibody assay (units/volume)Ordered By: Jose Shanks on 12-25-2022 Gliadin peptide IgG Qn (S) 3 units 0-19 [facility] Comment on above: Negative 0 - 19 Weak Positive 20 - 30 Moderate to Strong Positive >30 Serum tissue transglutaminas e (tTG) IgA antibody assay (units/volume)Ordered By: Jose Shanks on 12-25-2022 tTG IgA Qn (S) <2 U/mL 0-3 [facility] Comment on above: Negative 0 - 3 Weak Positive 4 - 10 Positive >10 Tissue Transglutaminase (tTG) has been identified as the endomysial antigen. Studies have demonstr- ated that endomysial IgA antibodies have over 99% specificity for gluten sensitive enteropathy. Serum tissue transglutaminas e (tTG) IgG antibody assay (units/volume)Ordered By: Jose Shanks on 12-25-2022 tTG IgG Qn (S) <2 U/mL 0-5 [facility] Comment on above: Negative 0 - 5 Weak Positive 6 - 9 Positive >9 Thyrotropin [Units/volume] i n Serum or PlasmaOrdered By: Jose Shanks on 12-25-2022 TSH Qn 0.78 m[IU]/L 0.45-5.33 [facility] Thyroxine (T4) free [Mass/vo lume] in Serum or PlasmaOrdered By: Dayne Horton on 12-25-2022 Free T4 [Mass/Vol] 0.93 ng/dL 0.61-1.12 [facility] Transferrin [Mass/volume] in Serum or PlasmaOrdered By: Kelly Hough on 12-25-2022 Transferrin [Mass/Vol] 172 mg/dL 203-362 [facility] Triiodothyronine (T3) Free [ Mass/volume] in Serum or PlasmaOrdered By: Dayne Horton on 12-25-2022 Free T3 [Mass/Vol] 3.54 pg/mL 2.50-3.90 [facility] Vitamin D+Metabolites [Mass/ volume] in Serum or PlasmaOrdered By: Dayne Horton on 12-25-2022 Vitamin D+Metabolites [Mass/Vol] 27.0 ng/mL 30-100 [facility] Comment on above: VITAMIN D STATUS 25( [place])VITAMIN D RANGE (ng/mL) Deficient <20 Insufficient 20 to <30Sufficient 30 to 100Reference: Pam MF,Abelardo NC, Cj GARZA, et al. Evaluation,treatment, and prevention of vitamin D deficiency; an Endocrine Society clinical practice guideline. JCEM. 2010; 96(7):1911-30. WBC Auto (Bld) [#/Vol]Ordere d By: Kelyl Hough on 12-25-2022 WBC (Bld) [#/Vol] 6.8 10*3/uL 3.8-11.6 [facility] AMYLASEon 12-07-2022 Amylase [Catalytic activity/Vol] 82 U/L Normal 25-115 [facility] Comment on above: Performed By: #### U MICRO, PREGU, ERUR #### [facility] [address] [address] [address] Adam Mejía CARDIAC REBECCA 3-6on 3 CK [Catalytic activity/Vol] 50 U/L Normal 26-192 [facility] Comment on above: Performed By: #### U MICRO, PREGU, ERUR #### [facility] [address] [place] [address] Dr. Adam Mejía CK.MB [Mass/Vol] ng/mL Normal <=3.60 [facility] Comment on above: Performed By: #### U MICRO, PREGU, ERUR #### [facility] [address] [place] [address] Dr. Adam Mejía HSTROP <4.0 Normal 4.0-51.3 [facility] Comment on above: Result Comment: CUT- OFF POINTS HAVE BEEN ESTABLISHED BASED ON THE FOURTH UNIVERSAL DEFINITIONS OF MYOCARDIAL INFARCTION. THE UPPER REFERENCE LIMIT (URL) OF TROPONIN, DEFINED THE 99TH PERCENTILE OF cTnI DISTRIBUTION IN A REFERENCE POPULATION, HAS BEEN CONFIRMED THE DECISION THRESHOLD FOR MN DIAGNOSIS. Performed By: #### U MICRO, PREGU, ERUR #### [facility] [address] [place] [address] Dr. Adam Mejía CARDIAC REBECCA ADMITon 023 CK [Catalytic activity/Vol] 60 U/L Normal 26-192 [facility] Comment on above: Performed By: #### U MICRO, PREGU, ERUR #### [facility] [address] [place] [address] Dr. Adam Mejía CK.MB [Mass/Vol] ng/mL Normal <=3.60 [facility] Comment on above: Performed By: #### U MICRO, PREGU, ERUR #### [facility] [address] [place] [address] Dr. Adam Mejía HSTROP <4.0 Normal 4.0-51.3 [facility] Comment on above: Result Comment: CUT- OFF POINTS HAVE BEEN ESTABLISHED BASED ON THE FOURTH UNIVERSAL DEFINITIONS OF MYOCARDIAL INFARCTION. THE UPPER REFERENCE LIMIT (URL) OF TROPONIN, DEFINED THE 99TH PERCENTILE OF cTnI DISTRIBUTION IN A REFERENCE POPULATION, HAS BEEN CONFIRMED THE DECISION THRESHOLD FOR MN DIAGNOSIS. Performed By: #### U MICRO, PREGU, ERUR #### [facility] [address] [place] [address] Dr. Adam Mejía OSMIN 17 ng/mL Normal 9-82 [facility] Comment on above: Performed By: #### U MICRO, PREGU, ERUR #### [facility] [address] [place] [address] Dr. Adam Mejía CBC AUTO DIFFon 12-07-2022 BASO # 0.0 103/ul Normal 0.0-0.1 [facility] Comment on above: Performed By: #### U MICRO, PREGU, ERUR #### [facility] [address] [address] [address] Adam Mejía Basophils/100 WBC (Bld) 0.3 % Normal 0.2-2.0 [facility] Comment on above: Performed By: #### U MICRO, PREGU, ERUR #### [facility] [address] [place] [address] Dr. Adam Mejía EO # 0.2 103/ul Normal 0.0-0.7 [facility] Comment on above: Performed By: #### U MICRO, PREGU, ERUR #### [facility] [address] [place] [address] Dr. Adam Mjeía Eosinophils/100 WBC (Bld) 2.5 % Normal 0.9-7.0 [facility] Comment on above: Performed By: #### U MICRO, PREGU, ERUR #### [facility] [address] [place] [address] Dr. Adam Mejía Erythrocyte distribution width (RBC) [Ratio] 15.2 % Critically high 11.0-15.0 [facility] Comment on above: Performed By: #### U MICRO, PREGU, ERUR #### [facility] [address] [place] [address] Dr. Adam Mejía Hematocrit (Bld) [Volume fraction] 34.8 % Critically low 36.0-48.0 [facility] Comment on above: Performed By: #### U MICRO, PREGU, ERUR #### [facility] [address] [place] [address] Dr. Adam Mejía Hemoglobin (Bld) [Mass/Vol] 10.6 g/dL Critically low 12.0-16.0 [facility] Comment on above: Performed By: #### U MICRO, PREGU, ERUR #### [facility] [address] [place] [address] Dr. Adam Mejía IG # 0.02 10e3/ul Normal 0.00-0.03 [facility] Comment on above: Performed By: #### U MICRO, PREGU, ERUR #### [facility] [address] [place] [address] Dr. Adam Mejía IG % 0.2 % Normal 0.0-0.5 [facility] Comment on above: Performed By: #### U MICRO, PREGU, ERUR #### [facility] [address] [place] [address] Dr. Adam Mejía LYMPH # 2.1 103/ul Normal 1.2-3.8 [facility] Comment on above: Performed By: #### U MICRO, PREGU, ERUR #### [facility] [address] [place] [address] Dr. Adam Mejía Lymphocytes/100 WBC (Bld) 23.0 % Normal 20.5-60.0 [facility] Comment on above: Performed By: #### U MICRO, PREGU, ERUR #### [facility] [address] [place] [address] Dr. Adam Mejía MANUAL DIFF REQ NO Normal [facility] Comment on above: Performed By: #### U MICRO, PREGU, ERUR #### [facility] [address] [place] [address] Dr. Adam Mejía MCH (RBC) [Entitic mass] 22.5 pg Critically low 26.7-34.0 [facility] Comment on above: Performed By: #### U MICRO, PREGU, ERUR #### [facility] [address] [place] [address] Dr. Adam Mejía MCHC (RBC) [Mass/Vol] 30.5 g/dL Normal 29.9-35.2 [facility] Comment on above: Performed By: #### U MICRO, PREGU, ERUR #### [facility] [address] [address] [address] Adam Mejía MCV (RBC) [Entitic vol] 73.9 fL Critically low 81.0-99.0 [facility] Comment on above: Performed By: #### U MICRO, PREGU, ERUR #### [facility] [address] [address] [address] Adam Mejía MONO # 0.5 103/ul Normal 0.3-0.8 [facility] Comment on above: Performed By: #### U MICRO, PREGU, ERUR #### [facility] [address] [place] [address] Dr. Adam Mejía Monocytes/100 WBC (Bld) 5.8 % Normal 1.7-12.0 [facility] Comment on above: Performed By: #### U MICRO, PREGU, ERUR #### [facility] [address] [place] [address] Dr. Adam Mejía NEUT # 6.3 103/ul Normal 1.4-6.5 [facility] Comment on above: Performed By: #### U MICRO, PREGU, ERUR #### [facility] [address] [place] [address] Dr. Adam Mejía Neutrophils/100 WBC (Bld) 68.2 % Normal 43.0-75.0 [facility] Comment on above: Performed By: #### U MICRO, PREGU, ERUR #### [facility] [address] [place] [address] Dr. Adam Mejía Platelet mean volume (Bld) [Entitic vol] 11.8 fL Normal 9.5-13.5 [facility] Comment on above: Performed By: #### U MICRO, PREGU, ERUR #### [facility] [address] [place] [address] Dr. Adam Mejía PLT 250 103/ul Normal 150-450 [facility] Comment on above: Performed By: #### U MICRO, PREGU, ERUR #### [facility] [address] [place] [address] Dr. Adam Mejía RBC 4.71 106/ul Normal 4.20-5.40 [facility] Comment on above: Performed By: #### U MICRO, PREGU, ERUR #### [facility] [address] [address] [address] Adam Mejía WBC 9.2 103/ul Normal 4.0-11.0 [facility] Comment on above: Performed By: #### U MICRO, PREGU, ERUR #### [facility] [address] [address] [address] Adam Mejía ER URINE PROFILEon 3 Bilirubin Ql (U) Negative Normal NEGATIVE [facility] Comment on above: Performed By: #### U MICRO, PREGU, ERUR #### [facility] [address] [address] [address] Adam Mejía Clarity (U) CLEAR Normal CLEAR [facility] Comment on above: Performed By: #### U MICRO, PREGU, ERUR #### [facility] [address] [address] [address] Adam Mejía Color (U) LT. YELLOW Normal YELLOW [facility] Comment on above: Performed By: #### U MICRO, PREGU, ERUR #### [facility] [address] [address] [address] Adam CLEMENTS A micrscopic examina tion will be performed if indicated. Normal [facility] Comment on above: Performed By: #### U MICRO, PREGU, ERUR #### [facility] [address] [address] [address] Adam Mejía Glucose Ql (U) Negative Normal NEGATIVE [facility] Comment on above: Performed By: #### U MICRO, PREGU, ERUR #### [facility] [address] [address] [address] Adam Mejía Hemoglobin Ql (U) SMALL Abnormal NEGATIVE [facility] Comment on above: Performed By: #### U MICRO, PREGU, ERUR #### [facility] [address] [address] [address] Adam Mejía Ketones Ql (U) Negative Normal NEGATIVE [facility] Comment on above: Performed By: #### U MICRO, PREGU, ERUR #### [facility] [address] [address] [address] Adam Mejía LEUKOCYTES Negative Normal NEGATIVE [facility] Comment on above: Performed By: #### U MICRO, PREGU, ERUR #### [facility] [address] [address] [address] Adam Mjeía Nitrite Ql (U) Negative Normal NEGATIVE [facility] Comment on above: Performed By: #### U MICRO, PREGU, ERUR #### [facility] [address] [address] [address] Adam Mejía pH (U) 8.0 [pH] Normal 5-9 [facility] Comment on above: Performed By: #### U MICRO, PREGU, ERUR #### [facility] [address] [place] [address] Dr. Adam Mejía SPEC GRAVITY 1.010 Normal 1.005-<=1. 025 [facility] Comment on above: Performed By: #### U MICRO, PREGU, ERUR #### [facility] [address] [address] [address] Adam Mejía UA PROTEIN Negative Normal NEGATIVE/ TRACE [facility] Comment on above: Performed By: #### U MICRO, PREGU, ERUR #### [facility] [address] [place] [address] Dr. Adam Mejía UR MICRO IND INDICATED Normal [facility] Comment on above: Performed By: #### U MICRO, PREGU, ERUR #### [facility] [address] [address] [address] Adam Mejía Urobilinogen Qn (U) 1.0 {Brinda'U}/dL Normal 0.2 - 1. 0 [facility] Comment on above: Performed By: #### U MICRO, PREGU, ERUR #### [facility] [address] [place] [address] Dr. Adam Mejía LACTATE/LACTIC ACIDon 2022 Lactate [Moles/Vol] 0.5 mmol/L Normal 0.4-2.0 [facility] Comment on above: Performed By: #### U MICRO, PREGU, ERUR #### [facility] [address] [place] [address] Dr. Adam Mejía LIPASEon 12-07-2022 Lipase [Catalytic activity/Vol] 219.0 U/L Normal 73.0-393.0 [facility] Comment on above: Performed By: #### U MICRO, PREGU, ERUR #### [facility] [address] [place] [address] Dr. Adma Mejía LIVER PROFILEon 12-07-2022 Albumin [Mass/Vol] 3.7 g/dL Normal 3.4-5.0 [facility] Comment on above: Performed By: #### U MICRO, PREGU, ERUR #### [facility] [address] [place] [address] Dr. Adam Mejía Albumin/Globulin [Mass ratio] 1.1 {ratio} Normal [facility] Comment on above: Performed By: #### U MICRO, PREGU, ERUR #### [facility] [address] [place] [address] Dr. Adam Mejía ALP [Catalytic activity/Vol] 57 U/L Normal 46-116 [facility] Comment on above: Performed By: #### U MICRO, PREGU, ERUR #### [facility] [address] [place] [address] Dr. Adam Mejía ALT [Catalytic activity/Vol] 15 U/L Normal 14-59 [facility] Comment on above: Performed By: #### U MICRO, PREGU, ERUR #### [facility] [address] [place] [address] Dr. Adam Mejía AST [Catalytic activity/Vol] 13 U/L Critically low 15-37 [facility] Comment on above: Performed By: #### U MICRO, PREGU, ERUR #### [facility] [address] [place] [address] Dr. Adam Mejía BILI, CONJUGATED 0.2 mg/dL Normal 0.0-0.2 [facility] Comment on above: Performed By: #### U MICRO, PREGU, ERUR #### [facility] [address] [place] [address] Dr. Adam Mejía Bilirubin [Mass/Vol] 0.2 mg/dL Normal 0.2-1.0 [facility] Comment on above: Performed By: #### U MICRO, PREGU, ERUR #### [facility] [address] [place] [address] Dr. Adam Mejía Globulin (S) [Mass/Vol] 3.4 g/dL Normal [facility] Comment on above: Performed By: #### U MICRO, PREGU, ERUR #### [facility] [address] [place] [address] Dr. Adam Mejía Protein [Mass/Vol] 7.1 g/dL Normal 6.4-8.2 [facility] Comment on above: Performed By: #### U MICRO, PREGU, ERUR #### [facility] [address] [place] [address] Dr. Adam Mejía PROF CHEM 8 (BAS METB)on Anion gap [Moles/Vol] 12.0 mmol/L Normal [facility] Comment on above: Performed By: #### U MICRO, PREGU, ERUR #### [facility] [address] [place] [address] Dr. Adam Mejía Calcium [Mass/Vol] 8.8 mg/dL Normal 8.5-10.1 [facility] Comment on above: Performed By: #### U MICRO, PREGU, ERUR #### [facility] [address] [place] [address] Dr. Adam Mejía Chloride [Moles/Vol] 102 mmol/L Normal 98-107 [facility] Comment on above: Performed By: #### U MICRO, PREGU, ERUR #### [facility] [address] [place] [address] Dr. Adam Mejía CO2 [Moles/Vol] 26.9 mmol/L Normal 21.0-32.0 [facility] Comment on above: Performed By: #### U MICRO, PREGU, ERUR #### [facility] [address] [place] [address] Dr. Adam Mejía Creatinine [Mass/Vol] 0.75 mg/dL Normal 0.55-1.02 [facility] Comment on above: Performed By: #### U MICRO, PREGU, ERUR #### [facility] [address] [address] [address] Adam Mejía EGFR-AF TONGAN >60 Normal >=60 [facility] Comment on above: Performed By: #### U MICRO, PREGU, ERUR #### [facility] [address] [address] [address] Adam Mejía EGFR-NON AF TONGAN >60 Normal >=60 [facility] Comment on above: Performed By: #### U MICRO, PREGU, ERUR #### [facility] [address] [address] [address] Adam Mejía Glucose [Mass/Vol] 97 mg/dL Normal 74-106 [facility] Comment on above: Performed By: #### U MICRO, PREGU, ERUR #### [facility] [address] [address] [address] Adam Mejía Potassium [Moles/Vol] 3.9 mmol/L Normal 3.5-5.1 [facility] Comment on above: Performed By: #### U MICRO, PREGU, ERUR #### [facility] [address] [place] [address] Dr. Adam Mejía Sodium [Moles/Vol] 137 mmol/L Normal 136-145 [facility] Comment on above: Performed By: #### U MICRO, PREGU, ERUR #### [facility] [address] [address] [address] Adam Mejía Urea nitrogen [Mass/Vol] 13.0 mg/dL Normal 7.0-18.0 [facility] Comment on above: Performed By: #### U MICRO, PREGU, ERUR #### [facility] [address] [address] [address] Adam Mejía Urea nitrogen/Creatinine [Mass ratio] 17.3 mg/mg Normal [facility] Comment on above: Performed By: #### U MICRO, PREGU, ERUR #### [facility] [address] [address] [address] Adam Mejía URINE MICROSCOPIC ONLYon BACTERIA NONE SEEN Normal NONE SEEN [facility] Comment on above: Performed By: #### U MICRO, PREGU, ERUR #### [facility] [address] [place] [address] Dr. Adam Mejía Bacteria identified Cx Nom (U) NOT INDICATED Normal [facility] Comment on above: Performed By: #### U MICRO, PREGU, ERUR #### [facility] [address] [place] [address] Dr. Adam Mejía CAST NONE SEEN Normal NONE SEEN [facility] Comment on above: Performed By: #### U MICRO, PREGU, ERUR #### [facility] [address] [place] [address] Dr. Adam Mejía Crystals LM Nom (Urine sed) NONE SEEN Normal NONE SEEN [facility] Comment on above: Performed By: #### U MICRO, PREGU, ERUR #### [facility] [address] [place] [address] Dr. Adam Mejía Epithelial cells LM Ql (Urine sed) RARE Normal NONE SEEN /RARE [facility] Comment on above: Performed By: #### U MICRO, PREGU, ERUR #### [facility] [address] [place] [address] Dr. Adam Mejía MUCOUS NONE SEEN Normal NONE SEEN [facility] Comment on above: Performed By: #### U MICRO, PREGU, ERUR #### [facility] [address] [address] [address] Adam Mejía RBC 2-5 Abnormal 0-2 [facility] Comment on above: Performed By: #### U MICRO, PREGU, ERUR #### [facility] [address] [place] [address] Dr. Adam Mejía WBC NONE SEEN Normal NONE SEEN [facility] Comment on above: Performed By: #### U MICRO, PREGU, ERUR #### [facility] [address] [place] [address] Dr. Adam Mejía XR ABD FLAT UP_PA [...] by: LENI ANGEL Date: 2022-12-07 00:23 Normal [facility] US PELVIS TRANSVAGon 023 US [...] by: KALPESH FOWLER Date: 2022-11-29 11:27 Normal [facility] No Panel InformationOrdered By: Dayne Horton on 10-12-2022 25-Hydroxy Vitamin D Total 10.4 ng/mL 30-100 [facility] Comment on above: VITAMIN D STATUS 25( [place])VITAMIN D RANGE (ng/mL) Deficient <20 Insufficient 20 to <30Sufficient 30 to 100Reference: Pam MF,Abelardo NC, Cj GARZA, et al. Evaluation,treatment, and prevention of vitamin D deficiency; an Endocrine Society clinical practice guideline. JCEM. 2010; 96(7):1911-30. Serum or plasma thyroglobuli n antibody assay (units/volume)Ordered By: Dayne Horton on 10-12-2022 Thyroglobulin Ab Qn [IU]/mL 0.0-0.9 [facility] Comment on above: Thyroglobulin Antibo dy measured by O2 MedtechMethodologyPerformed at: CB - [facility] [address] [id number] Director: Alan Macias PhD, Phone: [phone] Serum or plasma thyroperoxid ase antibody assay (units/volume)Ordered By: Dayne Horton on 10-12-2022 TPO Ab Qn 11 [IU]/mL 0-34 [facility] Serum thyrotropin receptor a ntibody assay (units/volume)Ordered By: Dayne Horton on 10-12-2022 TSH receptor Ab Qn (S) <1.10 IU/L 0.00-1.75 [facility] Comment on above: Performed at: [facility] [address] [id number] Director: Artemio Guillen MD, Phone: [phone] TSH DL <= 0.005 mIU/L QnOrde red By: Dayne Horton on 10-12-2022 TSH Qn 0.06 m[IU]/L 0.45-5.33 [facility] Thyroxine (T4) free [Mass/vo lume] in Serum or PlasmaOrdered By: Dayne Horton on 10-12-2022 Free T4 [Mass/Vol] 1.02 ng/dL 0.61-1.12 [facility] Triiodothyronine (T3) Free [ Mass/volume] in Serum or PlasmaOrdered By: Dayne Horton on 10-12-2022 Free T3 [Mass/Vol] 3.90 pg/mL 2.50-3.90 [facility] Basophils Auto (Bld) [#/Vol] Ordered By: Kelly Hough on 10-03-2022 Basophils (Bld) [#/Vol] 0.0 10*3/uL 0.0-0.2 [facility] Basophils/100 WBC Auto (Bld) Ordered By: Kelly Hough on 10-03-2022 Basophils/100 WBC (Bld) 0.7 % . [facility] CT biopsyOrdered By: Kelly Ramos on 10-03-2022 Transferrin [Mass/Vol] 230 mg/dL 180-380 [facility] Eosinophils Auto (Bld) [#/Vo l]Ordered By: Kelly Hough on 10-03-2022 Eosinophils (Bld) [#/Vol] 0.1 10*3/uL 0.0-0.45 [facility] Eosinophils/100 WBC Auto (Bl d)Ordered By: Kelly Hough on 10-03-2022 Eosinophils/100 WBC (Bld) 2.4 % . [facility] Erythrocyte distribution wid th Auto (RBC) [Ratio]Ordered By: Kelly Hough on 10-03-2022 Erythrocyte distribution width (RBC) [Ratio] 15.2 % 11.9-15.3 [facility] Ferritin [Mass/volume] in Se rum or PlasmaOrdered By: Kelly Hough on 10-03-2022 Ferritin [Mass/Vol] 7.7 ng/mL 11-306.8 [facility] Hematocrit Auto (Bld) [Volum e fraction]Ordered By: Kelly Hough on 10-03-2022 Hematocrit (Bld) [Volume fraction] 31.2 % 34.0-46.4 [facility] Hemoglobin [Mass/volume] in BloodOrdered By: Kelly Hough on 10-03-2022 Hemoglobin (Bld) [Mass/Vol] 9.7 g/dL 11.8-15.4 [facility] Iron [Mass/volume] in Serum or PlasmaOrdered By: Kelly Hough on 10-03-2022 Iron [Mass/Vol] 96 ug/dL 40-150 [facility] Iron binding capacity [Mass/ volume] in Serum or PlasmaOrdered By: Kelly Hough on 10-03-2022 Iron binding capacity [Mass/Vol] 322 ug/dL 255-450 [facility] Iron saturation [Mass Fracti on] in Serum or PlasmaOrdered By: Kelly Hough on 10-03-2022 Iron saturation [Mass fraction] 29.8 % 20-50 [facility] Leukocytes [#/volume] correc delmer for nucleated erythrocytes in Blood by Automated counOrdered By: Kelly Hough on 10-03-2022 WBC corrected for nucl RBC Auto (Bld) [#/Vol] 5.6 10*3/uL 3.8-11.6 [facility] Lymphocytes Auto (Bld) [#/Vo l]Ordered By: Kelly Hough on 10-03-2022 Lymphocytes (Bld) [#/Vol] 1.7 10*3/uL 1.00-4.8 [facility] Lymphocytes/100 WBC Auto (Bl d)Ordered By: Kelly Hough on 10-03-2022 Lymphocytes/100 WBC (Bld) 30.9 % . [facility] MCH Auto (RBC) [Entitic mass ]Ordered By: Kelly Hough on 10-03-2022 MCH (RBC) [Entitic mass] 21.8 pg 24.7-34.3 [facility] MCHC Auto (RBC) [Mass/Vol]Or dered By: Kelly Hough on 10-03-2022 MCHC (RBC) [Mass/Vol] 31.2 g/dL 32.0-35.0 [facility] MCV Auto (RBC) [Entitic vol] Ordered By: Kelly Hough on 10-03-2022 MCV (RBC) [Entitic vol] 70.0 fL 80-100 [facility] Monocytes Auto (Bld) [#/Vol] Ordered By: Kelly Hough on 10-03-2022 Monocytes (Bld) [#/Vol] 0.4 10*3/uL 0.0-0.8 [facility] Monocytes/100 WBC Auto (Bld) Ordered By: Kelly Hough on 10-03-2022 Monocytes/100 WBC (Bld) 6.3 % . [facility] Neutrophils Auto (Bld) [#/Vo l]Ordered By: Kelly Hough on 10-03-2022 Neutrophils (Bld) [#/Vol] 3.4 10*3/uL 1.8-7.7 [facility] Neutrophils/100 WBC Auto (Bl d)Ordered By: Kelly Hough on 10-03-2022 Neutrophils/100 WBC (Bld) 59.7 % . [facility] Nucleated erythrocytes [Pres ence] in Blood by Automated countOrdered By: Kelly Hough on 10-03-2022 Nucleated RBC Auto Ql (Bld) 0.1 /100{WBC} 0-0.5 [facility] Platelet mean volume Auto (B ld) [Entitic vol]Ordered By: Kelly Hough on 10-03-2022 Platelet mean volume (Bld) [Entitic vol] 9.4 fL 6.3-10.7 [facility] Platelets Auto (Bld) [#/Vol] Ordered By: Kelly Hough on 10-03-2022 Platelets (Bld) [#/Vol] 226 10*3/uL 150-450 [facility] RBC Auto (Bld) [#/Vol]Ordere d By: Kelly Hough on 10-03-2022 RBC (Bld) [#/Vol] 4.46 10*6/uL 3.60-5.00 [facility] WBC Auto (Bld) [#/Vol]Ordere d By: Kelly Hough on 10-03-2022 WBC (Bld) [#/Vol] 5.6 10*3/uL 3.8-11.6 [facility] Free thyroxine indexOrdered By: Yudelka Lopez on 10-02-2022 Free T4 index Calc [Mass/Vol] 2.8 1.2-4.9 [facility] No Panel InformationOrdered By: Yudelka Lopez on 10-02-2022 Free Thyroxine (T4) Direct 8.6 ug/dL 4.5-12.0 [facility] TSH DL <= 0.005 mIU/L QnOrde red By: Yudelka Lopez on 10-02-2022 TSH Qn 0.037 m[IU]/L 0.450-4.50 0 [facility] Triiodothyronine (T3) [Mass/ volume] in Serum or PlasmaOrdered By: Yudelka Lopez on 10-02-2022 T3 [Mass/Vol] 135 ng/dL 71-180 [facility] Comment on above: Performed at: [address] [id number] Director: Alan Macias PhD, Phone: [phone] Triiodothyronine (T3) resin uptake testOrdered By: Yudelka Lopez on 10-02-2022 T3RU 33 % 24-39 [facility] Activated partial thrombopla stin time (aPTT) in platelet poor plasma by coagulation aOrdered By: Jim Vega on 09-21-2022 aPTT Coag (PPP) [Time] 30.8 s 25.1-36.5 [facility] Albumin [Mass/volume] in Ser um or PlasmaOrdered By: Jim Vega on 09-21-2022 Albumin [Mass/Vol] 3.7 g/dL 3.2-5.5 [facility] Automated erythrocytes count in urine sediment (number/area)Ordered By: Jim Vega on 09-21-2022 RBC Auto (Urine sed) [#/Area] 1-2 [HPF] 0-4 [facility] Automated leukocytes count i n urine sediment (number/area)Ordered By: Jim eVga on 09-21-2022 WBC Auto (Urine sed) [#/Area] 0-1 [HPF] 0-4 [facility] Basophils Auto (Bld) [#/Vol] Ordered By: Jim Vega on 09-21-2022 Basophils (Bld) [#/Vol] 0.0 10*3/uL 0.0-0.2 [facility] Basophils/100 WBC Auto (Bld) Ordered By: Jim Vega on 09-21-2022 Basophils/100 WBC (Bld) 0.5 % . [facility] Bilirubin Test strip Ql (U)O rdered By: Jim Vega on 09-21-2022 Bilirubin Ql (U) Negative Negative [facility] COVID CepheidOrdered By: Rahat Vega on 09-21-2022 SARS-CoV-2 (COVID-19) Ab IA Ql Negative Negative [facility] Comment on above: This is a duplicate [employer] Xpert Xpress CoV-2/Flu/RSV Plus RNA by RT-PCR result to be used for statistical tracking purpose only. SARS-CoV-2 (COVID-19) RNA HIRAM+probe Ql (Unsp spec) [facility] SARS-CoV-2 (COVID-19) RNA HIRAM+probe Ql (Unsp spec) [facility] Color Auto (U)Ordered By: Narinder Vega on 09-21-2022 Color (U) Yellow Yellow [facility] Creatinine and Glomerular fi ltration rate.predicted panel (S/P/Bld)Ordered By: Jim Vega on 09-21-2022 Creatinine [Mass/Vol] 0.79 mg/dL 0.44-1.03 [facility] Eosinophils Auto (Bld) [#/Vo l]Ordered By: Jim Vega on 09-21-2022 Eosinophils (Bld) [#/Vol] 0.1 10*3/uL 0.0-0.45 [facility] Eosinophils/100 WBC Auto (Bl d)Ordered By: Jim Vega on 09-21-2022 Eosinophils/100 WBC (Bld) 2.7 % . [facility] Erythrocyte distribution wid th Auto (RBC) [Ratio]Ordered By: Jim Vega on 09-21-2022 Erythrocyte distribution width (RBC) [Ratio] 15.6 % 11.9-15.3 [facility] Estimated glomerular filtrat ion rate (GFR) non- AmericanOrdered By: Jim Vega on 09-21-2022 GFR/1.73 sq M.predicted among non-blacks MDRD (S/P/Bld) [Vol rate/Area] > 60 mL/Min [facility] Globulin Calc (S) [Mass/Vol] Ordered By: Jim Vega on 09-21-2022 Globulin (S) [Mass/Vol] 3.3 g/dL [facility] HCG ( test) IA.rapi d Ql (U)Ordered By: Jim Vega on 09-21-2022 HCG ( test) Ql (U) Negative [facility] Hematocrit Auto (Bld) [Volum e fraction]Ordered By: Jim Vega on 09-21-2022 Hematocrit (Bld) [Volume fraction] 31.9 % 34.0-46.4 [facility] Hemoglobin [Mass/volume] in BloodOrdered By: Jim Vega on 09-21-2022 Hemoglobin (Bld) [Mass/Vol] 9.9 g/dL 11.8-15.4 [facility] Ketones Auto test strip (U) [Mass/Vol]Ordered By: Jim Vega on 09-21-2022 Ketones (U) [Mass/Vol] Negative [facility] - CoagulationOrde red By: Jim Vega on 09-21-2022 PT Coag (PPP) [Time] 13.3 s 9.0-12.9 [facility] - UrinalysisOrder ed By: Jim Vega on 09-21-2022 Hyaline casts LM Ql (Urine sed) None seen [LPF] 0-8 [facility] Leukocytes [#/volume] correc delmer for nucleated erythrocytes in Blood by Automated counOrdered By: Jim Vega on 09-21-2022 WBC corrected for nucl RBC Auto (Bld) [#/Vol] 5.4 10*3/uL 3.8-11.6 [facility] Lymphocytes Auto (Bld) [#/Vo l]Ordered By: Jim Vega on 09-21-2022 Lymphocytes (Bld) [#/Vol] 1.4 10*3/uL 1.00-4.8 [facility] Lymphocytes/100 WBC Auto (Bl d)Ordered By: Jim Vega on 09-21-2022 Lymphocytes/100 WBC (Bld) 26.1 % . [facility] MCH Auto (RBC) [Entitic mass ]Ordered By: Jim Vega on 09-21-2022 MCH (RBC) [Entitic mass] 21.7 pg 24.7-34.3 [facility] MCHC Auto (RBC) [Mass/Vol]Or dered By: Jim Vega on 09-21-2022 MCHC (RBC) [Mass/Vol] 31.0 g/dL 32.0-35.0 [facility] MCV Auto (RBC) [Entitic vol] Ordered By: Jim Vega on 09-21-2022 MCV (RBC) [Entitic vol] 70.1 fL 80-100 [facility] Monocyte distribution width [Entitic volume] in Blood by AutomatedOrdered By: Jim Vega on 09-21-2022 Monocyte distribution width Auto (Bld) [Entitic vol] 15.00 % 0.00-20.00 [facility] Monocytes Auto (Bld) [#/Vol] Ordered By: Jim Vega on 09-21-2022 Monocytes (Bld) [#/Vol] 0.4 10*3/uL 0.0-0.8 [facility] Monocytes/100 WBC Auto (Bld) Ordered By: Jim Vega on 09-21-2022 Monocytes/100 WBC (Bld) 6.9 % . [facility] Neutrophils Auto (Bld) [#/Vo l]Ordered By: Jim Vega on 09-21-2022 Neutrophils (Bld) [#/Vol] 3.4 10*3/uL 1.8-7.7 [facility] Neutrophils/100 WBC Auto (Bl d)Ordered By: Jim Vega on 09-21-2022 Neutrophils/100 WBC (Bld) 63.8 % . [facility] Nitrite Test strip Ql (U)Ord ered By: Jim Vega on 09-21-2022 Nitrite Ql (U) Negative Negative [facility] No Panel InformationOrdered By: Jim Vega on 09-21-2022 D-Dimer Quantitative (PE/DVT) 205 ng/mL 0-243 [facility] Comment on above: The reference range [...] conditions. Estimated GFR () > 60 mL/Min [facility] Comment on above: GFR estimated refere nce range: According to KDOQI guidelines, <60 ml/min/1.73m2 is sufficient to diagnose a patient with chronic kidney disease. Pharmacy Creatinine Clearance (Chem 96.49 [facility] Nucleated erythrocytes [Pres ence] in Blood by Automated countOrdered By: Jim Vega on 09-21-2022 Nucleated RBC Auto Ql (Bld) 0.4 /100{WBC} 0-0.5 [facility] Platelet mean volume Auto (B ld) [Entitic vol]Ordered By: Jim Vega on 09-21-2022 Platelet mean volume (Bld) [Entitic vol] 10.0 fL 6.3-10.7 [facility] Platelet poor plasma interna tional normalized ratio (INR) by coagulation assay (relatOrdered By: Jim Vega on 09-21-2022 INR Coag (PPP) [Relative time] 1.2 {INR} [facility] Comment on above: INR Therapeutic Rang [...] 09-21-2022 Platelets (Bld) [#/Vol] 215 10*3/uL 150-450 [facility] Protein Auto test strip (U) [Mass/Vol]Ordered By: Jim Vega on 09-21-2022 Protein (U) [Mass/Vol] Negative [facility] [Mass/volume] in Ser um or PlasmaOrdered By: Jim Vega on 09-21-2022 Protein [Mass/Vol] 7.0 g/dL 6.1-7.9 [facility] RBC Auto (Bld) [#/Vol]Ordere d By: Jim Vega on 09-21-2022 RBC (Bld) [#/Vol] 4.54 10*6/uL 3.60-5.00 [facility] Serum or plasma alanine keene otransferase measurement without P-5'-P (enzymatic activiOrdered By: Jim Vega on 09-21-2022 ALT No additional P-5'-P [Catalytic activity/Vol] 11 U/L 10-60 [facility] Serum or plasma albumin/glob ulin mass ratioOrdered By: Jim Vega on 09-21-2022 Albumin/Globulin [Mass ratio] 1.1 {ratio} [facility] Serum or plasma alkaline jared sphatase measurement (enzymatic activity/volume)Ordered By: Jim Vega on 09-21-2022 ALP [Catalytic activity/Vol] 47 U/L 32-92 [facility] Serum or plasma anion gap de terminationOrdered By: Jim Vega on 09-21-2022 Anion gap [Moles/Vol] 10.0 mmol/L 6.0-15.0 [facility] Serum or plasma aspartate am inotransferase measurement (enzymatic activity/volume)Ordered By: Jim Vega on 09-21-2022 AST [Catalytic activity/Vol] 13 U/L 10-42 [facility] Serum or plasma calcium marychuy urement (mass/volume)Ordered By: Jim Vega on 09-21-2022 Calcium [Mass/Vol] 8.9 mg/dL 8.2-10.2 [facility] Serum or plasma chloride nemo surement (moles/volume)Ordered By: Jim Vega on 09-21-2022 Chloride [Moles/Vol] 105 mmol/L 95-114 [facility] Serum or plasma glucose marychuy urement (mass/volume)Ordered By: Jim Vega on 09-21-2022 Glucose [Mass/Vol] 114 mg/dL 70-100 [facility] Comment on above: ADA recommended refe rence rangeRandom Glucose Reference Range is dependent on time and content of last meal. Glucose of more than 200 mg/dL in a nonstressed, ambulatory subject supports the diagnosis of Diabetes Mellitus. Serum or plasma potassium me asurement (moles/volume)Ordered By: Jim Vega on 09-21-2022 Potassium [Moles/Vol] 3.5 mmol/L 3.5-5.1 [facility] Serum or plasma sodium measu rement (moles/volume)Ordered By: Jim Vega on 09-21-2022 Sodium [Moles/Vol] 134 mmol/L 136-146 [facility] Serum or plasma total biliru bin measurement (mass/volume)Ordered By: Jim Vega on 09-21-2022 Bilirubin [Mass/Vol] 0.5 mg/dL 0.3-1.2 [facility] Serum or plasma total carbon dioxide measurement (moles/volume)Ordered By: Jim Vega on 09-21-2022 CO2 [Moles/Vol] 22.5 mmol/L 22.0-30.0 [facility] Serum or plasma urea nitroge n measurement (mass/volume)Ordered By: Jim Vega on 09-21-2022 Urea nitrogen [Mass/Vol] 5 mg/dL 9-23 [facility] Specific gravity Auto test s trip (U) [Rel density]Ordered By: Jim Vega on 09-21-2022 Specific gravity (U) [Rel density] 1.004 1.001-1.03 0 [facility] Squamous epithelial cells de tection in urine sediment by light microscopyOrdered By: Jim Vega on 09-21-2022 Epithelial cells.squamous LM Ql (Urine sed) 0-1 [HPF] 0-2 [facility] TSH DL <= 0.005 mIU/L QnOrde red By: Jim Vega on 09-21-2022 TSH Qn 0.14 m[IU]/L 0.45-5.33 [facility] Thyroxine (T4) free [Mass/vo lume] in Serum or PlasmaOrdered By: Jim Vega on 09-21-2022 Free T4 [Mass/Vol] 1.30 ng/dL 0.61-1.12 [facility] Troponin I.cardiac [Mass/vol ume] in Serum or Plasma by High sensitivity methodOrdered By: Jim Vega on 09-21-2022 Troponin I.cardiac High sensitivity method [Mass/Vol] < 3 pg/mL 0-15 [facility] Urine bacteria detection by automated methodOrdered By: Jim Vega on 09-21-2022 Bacteria Auto Ql (U) None seen None Seen [facility] Urine clarity by refractomet ry automatedOrdered By: Jim Vega on 09-21-2022 Clarity Refractometry automated (U) Clear Clear [facility] Urine glucose measurement by automated test strip (mass/volume)Ordered By: Jim Vega on 09-21-2022 Glucose Auto test strip (U) [Mass/Vol] Normal mg/dL Normal [facility] Urine hemoglobin detection b y automated test stripOrdered By: Jim Vega on 09-21-2022 Hemoglobin Auto test strip Ql (U) Trace Negative [facility] Urine leukocyte esterase det ection by automated test stripOrdered By: Jim Vega on 09-21-2022 Leukocyte esterase Auto test strip Ql (U) Negative Negative [facility] Urobilinogen Auto test strip (U) [Mass/Vol]Ordered By: Jim Vega on 09-21-2022 Urobilinogen (U) [Mass/Vol] Normal mg/dL Normal [facility] WBC Auto (Bld) [#/Vol]Ordere d By: Jim Vega on 09-21-2022 WBC (Bld) [#/Vol] 5.4 10*3/uL 3.8-11.6 [facility] pH Auto test strip (U)Ordere d By: Jim Vega on 09-21-2022 pH (U) 7.0 [pH] 5.0-9.0 [facility] Anisocytosis LM Ql (Bld)Orde red By: Tejinder Peraza on 09-15-2022 Anisocytosis Ql (Bld) Slight [facility] Basophils Auto (Bld) [#/Vol] Ordered By: Tejinder Peraza on 09-15-2022 Basophils (Bld) [#/Vol] 0.0 10*3/uL 0.0-0.2 [facility] Basophils/100 WBC Auto (Bld) Ordered By: Tejinder Peraza on 09-15-2022 Basophils/100 WBC (Bld) 0.3 % . [facility] Eosinophils Auto (Bld) [#/Vo l]Ordered By: Tejinder Peraza on 09-15-2022 Eosinophils (Bld) [#/Vol] 0.1 10*3/uL 0.0-0.45 [facility] Eosinophils/100 WBC Auto (Bl d)Ordered By: Tejinder Peraza on 09-15-2022 Eosinophils/100 WBC (Bld) 1.2 % . [facility] Erythrocyte distribution wid th Auto (RBC) [Ratio]Ordered By: joellen Peraza on 09-15-2022 Erythrocyte distribution width (RBC) [Ratio] 15.2 % 11.9-15.3 [facility] Hematocrit Auto (Bld) [Volum e fraction]Ordered By: Tejinder Peraza on 09-15-2022 Hematocrit (Bld) [Volume fraction] 30.9 % 34.0-46.4 [facility] Hemoglobin [Mass/volume] in BloodOrdered By: Tejinder Peraza on 09-15-2022 Hemoglobin (Bld) [Mass/Vol] 9.6 g/dL 11.8-15.4 [facility] Hypochromia LM Ql (Bld)Order ed By: Tejinder Peraza on 09-15-2022 Hypochromia Ql (Bld) Slight [facility] Leukocytes [#/volume] correc delmer for nucleated erythrocytes in Blood by Automated counOrdered By: Tejinder Peraza on 09-15-2022 WBC corrected for nucl RBC Auto (Bld) [#/Vol] 7.5 10*3/uL 3.8-11.6 [facility] Lymphocytes Auto (Bld) [#/Vo l]Ordered By: Tejinder Peraza on 09-15-2022 Lymphocytes (Bld) [#/Vol] 1.7 10*3/uL 1.00-4.8 [facility] Lymphocytes/100 WBC Auto (Bl d)Ordered By: Tejinder Peraza on 09-15-2022 Lymphocytes/100 WBC (Bld) 22.2 % . [facility] MCH Auto (RBC) [Entitic mass ]Ordered By: Tejinder Peraza on 09-15-2022 MCH (RBC) [Entitic mass] 21.8 pg 24.7-34.3 [facility] MCHC Auto (RBC) [Mass/Vol]Or dered By: Tejinder Peraza on 09-15-2022 MCHC (RBC) [Mass/Vol] 31.1 g/dL 32.0-35.0 [facility] MCV Auto (RBC) [Entitic vol] Ordered By: Tejinder Peraza on 09-15-2022 MCV (RBC) [Entitic vol] 70.0 fL 80-100 [facility] Microcytes LM Ql (Bld)Ordere d By: Tejinder Peraza on 09-15-2022 Microcytes Ql (Bld) Slight [facility] Monocytes Auto (Bld) [#/Vol] Ordered By: Tejinder Peraza on 09-15-2022 Monocytes (Bld) [#/Vol] 0.4 10*3/uL 0.0-0.8 [facility] Monocytes/100 WBC Auto (Bld) Ordered By: Tejinder Peraza on 09-15-2022 Monocytes/100 WBC (Bld) 5.3 % . [facility] Neutrophils Auto (Bld) [#/Vo l]Ordered By: Tejinder Peraza on 09-15-2022 Neutrophils (Bld) [#/Vol] 5.3 10*3/uL 1.8-7.7 [facility] Neutrophils/100 WBC Auto (Bl d)Ordered By: Tejinder Peraza on 09-15-2022 Neutrophils/100 WBC (Bld) 71.0 % . [facility] No Panel InformationOrdered By: joellen Peraza on 09-15-2022 D-Dimer Quantitative (PE/DVT) 245 ng/mL 0-243 [facility] Comment on above: The reference range [...] RBC Auto Ql (Bld) 0.1 /100{WBC} 0-0.5 [facility] Ovalocyte detectionOrdered B y: Tejinder Somarii on 09-15-2022 Ovalocytes LM Ql (Bld) Slight Fi [facility] Platelet adequacy [Presence] in Blood by Light microscopyOrdered By: Tejinder Sovigeri on 09-15-2022 Platelets LM Ql (Bld) Normal Normal [facility] Platelet mean volume Auto (B ld) [Entitic vol]Ordered By: Tejinder Somarii on 09-15-2022 Platelet mean volume (Bld) [Entitic vol] 9.8 fL 6.3-10.7 [facility] Platelet morphology finding [Identifier] in BloodOrdered By: Tejinder Somarii on 09-15-2022 Platelet morphology finding Nom (Bld) Normal Normal [facility] Platelets Auto (Bld) [#/Vol] Ordered By: Tejinder Sovigeri on 09-15-2022 Platelets (Bld) [#/Vol] 212 10*3/uL 150-450 [facility] Poikilocytosis [Presence] in Blood by Light microscopyOrdered By: Tejinder Somarii on 09-15-2022 Poikilocytosis LM Ql (Bld) Slight [facility] Polychromasia [Presence] in Blood by Light microscopyOrdered By: Tejinder Soviak on 09-15-2022 Polychromasia LM Ql (Bld) [facility] RBC Auto (Bld) [#/Vol]Ordere d By: Dhavalp Soviak on 09-15-2022 RBC (Bld) [#/Vol] 4.42 10*6/uL 3.60-5.00 [facility] RBC morphologyOrdered By: Dhaval Peraza on 09-15-2022 RBC morphology finding Nom (Bld) N/A [facility] WBC Auto (Bld) [#/Vol]Ordere d By: Tejinder Peraza on 09-15-2022 WBC (Bld) [#/Vol] 7.5 10*3/uL 3.8-11.6 [facility] AFP (TUMOR MARKER)on 022 AFP, Serum, Tumor Marker <1.8 Normal 0.0-4.7 [facility] Comment on above: Result Comment: [employer] Electrochemiluminescence Immunoassay (ECLIA) . Values obtained with different assay methods or kits cannot be used interchangeably. Results cannot be interpreted as absolute evidence of the presence or absence of malignant disease. . This test is not interpretable in females. Performed By: #### U MICRO, PREGU, ERUR #### [facility] [address] [address] [address] Adam Mejía CA 125on 08-06-2022 Cancer Antigen (CA) 125 29.7 U/mL Normal 0.0-38.1 [facility] Comment on above: Result Comment: [employer] Electrochemiluminescence Immunoassay (ECLIA) . Values obtained with different assay methods or kits cannot be used interchangeably. Results cannot be interpreted as absolute evidence of the presence or absence of malignant disease. Performed By: #### U MICRO, PREGU, ERUR #### [facility] [address] [address] [address] Adam Mejía CEAon 08-06-2022 CEA 0.9 ng/mL Normal 0.0-4.7 [facility] Comment on above: Result Comment: Nons mokers <3.9 Smokers <5.6 . [employer] Electrochemiluminescence Immunoassay (ECLIA) . Values obtained with different assay methods or kits cannot be used interchangeably. Results cannot be interpreted as absolute evidence of the presence or absence of malignant disease. Performed By: #### U MICRO, PREGU, ERUR #### [facility] [address] [address] [address] Adam Mejía HCG QUANT TUMOR MARKERon HCG QNT TUMOR MARKER <1 Normal [facility] Comment on above: Result Comment: Fema le [...] developed and its performance characteristics determined by [employer]. It has not been cleared or approved by the Food and Drug Administration for use as a tumor marker. . This test is not interpretable as a tumor marker in females. Performed By: #### H CGTMOR #### [facility] [address] [place], [place] [address] Dr. Adam Mejía LDHon 08-05-2022 LDH 164 U/L Normal 81-234 [facility] Comment on above: Performed By: #### U MICRO, PREGU, ERUR #### [facility] [address] [place], [place] [address] Dr. Adam Mejía US PELVIS TRANSVAGon 022 [...] by: KALPESH FOWLER Date: 2022-07-29 06:26 Normal [facility] PAP ACOG PANEL 2: 30 to 65on 07-10-2022 . . Normal [facility] Comment on above: Result Comment: Perf ormed at: WB Performed By: #### [id number] #### [facility] [address] [address] [address] Adam Mejía Age Gdln ACOG Testing 30-65 Normal [facility] Comment on above: Performed By: #### [id number] #### [facility] [address] [place] [address] Dr. Adam Mejía DIAGNOSIS: Comment Normal [facility] Comment on above: Result Comment: NEGA TIVE FOR INTRAEPITHELIAL LESION OR MALIGNANCY. Performed at: WB Performed By: #### [id number] #### [facility] [address] [address] [address] Adam Mejía HPV Aptima Negative Normal Negative [facility] Comment on above: Result Comment: This nucleic acid amplification test detects fourteen high-risk HPV types (16,18,31,33,35,39,45,51,52,56,58,59,66,68) without differentiation. Performed at: =G Performed By: #### [id number] #### [facility] [address] [address] [address] Adam Mejía Methodology: Comment Normal [facility] Comment on above: Result Comment: This liquid based ThinPrep(R) pap test was screened with the use of an image guided system. Performed at: WB Performed By: #### [id number] #### [facility] [address] [place] [address] Dr. Adam Mejía Note: Comment Normal [facility] Comment on above: Result Comment: The Pap smear is a screening test designed to aid in the detection of premalignant and malignant conditions of the uterine cervix. It is not a diagnostic procedure and should not be used as the sole means of detecting cervical cancer. Both false-positive and false-negative reports do occur. . Performed at: WB Performed By: #### [id number] #### [facility] [address] [place] [address] Dr. Adam Mejía Performed by: Comment Normal [facility] Comment on above: Result Comment: Dat Choi, Catering Sales Manager (ASCP) Performed at: WB Performed By: #### [id number] #### [facility] [address] [place] [address] Dr. Adam Mejía Specimen adequacy: Comment Normal [facility] Comment on above: Result Comment: Sati sfactory for evaluation. No endocervical component is identified. Performed at: WB Performed By: #### [id number] #### [facility] [address] [place] [address] Dr. Adam Mejía CHLAMYDIA/GONOCOCCUS HIRAM (SW AB/URINE/PAPon 07-05-2022 Chlamydia trachomatis, HIRAM Negative Normal Negative [facility] Comment on above: Performed By: #### C T/NGNA #### [facility] [address] [place] [address] Dr. Adam Mejía Neisseria gonorrhoeae, HIRAM Negative Normal Negative [facility] Comment on above: Performed By: #### C T/NGNA #### [facility] [address] [place] [address] Dr. Adam Mejía VAGINITIS/VAGINOSIS DNA PROB [place] 07-05-2022 Marion species Positive Abnormal Negative [facility] Comment on above: Performed By: #### V AGINT #### [facility] [address] [place] [address] Dr. Adam Mejía Gardnerella vaginalis Positive Abnormal Negative [facility] Comment on above: Performed By: #### V AGINT #### [facility] [address] [place] [address] Dr. Adam Mejía Trichomonas vaginalis Negative Normal Negative [facility] Comment on above: Performed By: #### V AGINT #### [facility] [address] [place] [address] Dr. Adam Mejía Activated partial thrombopla stin time (aPTT) in platelet poor plasma by coagulation aOrdered By: Frank Silva on 07-04-2022 aPTT Coag (PPP) [Time] 30.9 s 25.1-36.5 [facility] Albumin [Mass/volume] in Ser um or PlasmaOrdered By: Frank Silva on 07-04-2022 Albumin [Mass/Vol] 3.6 g/dL 3.2-5.5 [facility] Automated erythrocytes count in urine sediment (number/area)Ordered By: Frank Silva on 07-04-2022 RBC Auto (Urine sed) [#/Area] 3-4 [HPF] 0-4 [facility] Automated leukocytes count i n urine sediment (number/area)Ordered By: Frank Silva on 07-04-2022 WBC Auto (Urine sed) [#/Area] 0-1 [HPF] 0-4 [facility] Basophils Auto (Bld) [#/Vol] Ordered By: Frank Silva on 07-04-2022 Basophils (Bld) [#/Vol] 0.0 10*3/uL 0.0-0.2 [facility] Basophils/100 WBC Auto (Bld) Ordered By: Frank Silva on 07-04-2022 Basophils/100 WBC (Bld) 0.4 % . [facility] Bilirubin Test strip Ql (U)O rdered By: Frank Silva on 07-04-2022 Bilirubin Ql (U) Negative Negative [facility] Color Auto (U)Ordered By: Gopal Silva on 07-04-2022 Color (U) Yellow Yellow [facility] Creatinine and Glomerular fi ltration rate.predicted panel (S/P/Bld)Ordered By: Frank Silva on 07-04-2022 Creatinine [Mass/Vol] 0.80 mg/dL 0.44-1.03 [facility] Direct bilirubin measurement Ordered By: Frank Silva on 07-04-2022 Bilirubin.direct [Mass/Vol] mg/dL 0.0-0.4 [facility] Eosinophils Auto (Bld) [#/Vo l]Ordered By: Frank Silva on 07-04-2022 Eosinophils (Bld) [#/Vol] 0.1 10*3/uL 0.0-0.45 [facility] Eosinophils/100 WBC Auto (Bl d)Ordered By: Frank Silva on 07-04-2022 Eosinophils/100 WBC (Bld) 1.2 % . [facility] Erythrocyte distribution wid th Auto (RBC) [Ratio]Ordered By: Frank Silva on 07-04-2022 Erythrocyte distribution width (RBC) [Ratio] 14.9 % 11.9-15.3 [facility] Estimated glomerular filtrat ion rate (GFR) non- AmericanOrdered By: Frank Silva on 07-04-2022 GFR/1.73 sq M.predicted among non-blacks MDRD (S/P/Bld) [Vol rate/Area] > 60 mL/Min [facility] Globulin Calc (S) [Mass/Vol] Ordered By: Frank Silva on 07-04-2022 Globulin (S) [Mass/Vol] 3.3 g/dL [facility] HCG ( test) IA.rapi d Ql (U)Ordered By: Frank Silva on 07-04-2022 HCG ( test) Ql (U) Negative [facility] Hematocrit Auto (Bld) [Volum e fraction]Ordered By: Frank Silva on 07-04-2022 Hematocrit (Bld) [Volume fraction] 32.0 % 34.0-46.4 [facility] Hemoglobin [Mass/volume] in BloodOrdered By: Frank Silva on 07-04-2022 Hemoglobin (Bld) [Mass/Vol] 9.7 g/dL 11.8-15.4 [facility] Ketones Auto test strip (U) [Mass/Vol]Ordered By: Frank Silva on 07-04-2022 Ketones (U) [Mass/Vol] Trace Negative [facility] and C hemistry - challengeOrdered By: Frank Silva on 07-04-2022 Lipase [Catalytic activity/Vol] 43.0 U/L 22-51 [facility] - CoagulationOrde red By: Frank Silva on 07-04-2022 PT Coag (PPP) [Time] 13.3 s 9.0-12.9 [facility] - Hematology and Cell countsOrdered By: Frank Silva on 07-04-2022 Nucleated RBC/100 WBC (Bld) [Ratio] 0.1 % 0-0.5 [facility] - UrinalysisOrder ed By: Frank Silva on 07-04-2022 Hyaline casts LM Ql (Urine sed) 0-8 [LPF] 0-8 [facility] Leukocytes [#/volume] in Blo od by Automated countOrdered By: Frank Silva on 07-04-2022 WBC (Bld) [#/Vol] 8.7 10*3/uL 4.5-11.0 [facility] Lymphocytes Auto (Bld) [#/Vo l]Ordered By: Frank Silva on 07-04-2022 Lymphocytes (Bld) [#/Vol] 1.2 10*3/uL 1.00-4.8 [facility] Lymphocytes/100 WBC Auto (Bl d)Ordered By: Frank Silva on 07-04-2022 Lymphocytes/100 WBC (Bld) 14.2 % . [facility] MCH Auto (RBC) [Entitic mass ]Ordered By: Frank Silva on 07-04-2022 MCH (RBC) [Entitic mass] 21.4 pg 24.7-34.3 [facility] MCHC Auto (RBC) [Mass/Vol]Or dered By: Frank Silva on 07-04-2022 MCHC (RBC) [Mass/Vol] 30.4 g/dL 32.0-35.0 [facility] MCV Auto (RBC) [Entitic vol] Ordered By: Frank Silva on 07-04-2022 MCV (RBC) [Entitic vol] 70.4 fL 80-100 [facility] Monocytes Auto (Bld) [#/Vol] Ordered By: Frank Silva on 07-04-2022 Monocytes (Bld) [#/Vol] 0.4 10*3/uL 0.0-0.8 [facility] Monocytes/100 WBC Auto (Bld) Ordered By: Frank Silva on 07-04-2022 Monocytes/100 WBC (Bld) 5.0 % . [facility] Neutrophils Auto (Bld) [#/Vo l]Ordered By: Frank Silva on 07-04-2022 Neutrophils (Bld) [#/Vol] 6.9 10*3/uL 1.8-7.7 [facility] Neutrophils/100 WBC Auto (Bl d)Ordered By: Frnak Silva on 07-04-2022 Neutrophils/100 WBC (Bld) 79.2 % . [facility] Nitrite Test strip Ql (U)Ord ered By: Frank Silva on 07-04-2022 Nitrite Ql (U) Negative Negative [facility] No Panel InformationOrdered By: Frank Silva on 07-04-2022 Estimated GFR () > 60 mL/Min [facility] Comment on above: GFR estimated refere nce range: According to KDOQI guidelines, <60 ml/min/1.73m2 is sufficient to diagnose a patient with chronic kidney disease. Pharmacy Creatinine Clearance (Chem 98.82 [facility] Platelet mean volume Auto (B ld) [Entitic vol]Ordered By: Frank Silva on 07-04-2022 Platelet mean volume (Bld) [Entitic vol] 9.5 fL 6.3-10.7 [facility] Platelet poor plasma interna tional normalized ratio (INR) by coagulation assay (relatOrdered By: Frank Silva on 07-04-2022 INR Coag (PPP) [Relative time] 1.2 {INR} [facility] Comment on above: INR Therapeutic Rang [...] 07-04-2022 Platelets (Bld) [#/Vol] 258 10*3/uL 150-450 [facility] Protein Auto test strip (U) [Mass/Vol]Ordered By: Frank Silva on 07-04-2022 Protein (U) [Mass/Vol] Negative Negative Fi [facility] Protein [Mass/volume] in Ser um or PlasmaOrdered By: Frank Silva on 07-04-2022 Protein [Mass/Vol] 6.9 g/dL 6.1-7.9 [facility] RBC Auto (Bld) [#/Vol]Ordere d By: Frank Silva on 07-04-2022 RBC (Bld) [#/Vol] 4.54 10*6/uL 3.60-5.00 [facility] Serum or plasma alanine keene otransferase measurement without P-5'-P (enzymatic activiOrdered By: Frank Silva on 07-04-2022 ALT No additional P-5'-P [Catalytic activity/Vol] 15 U/L 1060 [facility] Serum or plasma albumin/glob ulin mass ratioOrdered By: Frank Silva on 07-04-2022 Albumin/Globulin [Mass ratio] 1.1 {ratio} [facility] Serum or plasma alkaline jared sphatase measurement (enzymatic activity/volume)Ordered By: Frank Silva on 07-04-2022 ALP [Catalytic activity/Vol] 50 U/L 32-92 [facility] Serum or plasma anion gap de terminationOrdered By: Frank Silva on 07-04-2022 Anion gap [Moles/Vol] 11.7 mmol/L 6.0-15.0 [facility] Serum or plasma aspartate am inotransferase measurement (enzymatic activity/volume)Ordered By: Frank Silva on 07-04-2022 AST [Catalytic activity/Vol] 14 U/L 10-42 [facility] Serum or plasma calcium maryhcuy urement (mass/volume)Ordered By: Frank Silva on 07-04-2022 Calcium [Mass/Vol] 8.9 mg/dL 8.2-10.2 [facility] Serum or plasma chloride nemo surement (moles/volume)Ordered By: Frank Silva on 07-04-2022 Chloride [Moles/Vol] 105 mmol/L 95-114 [facility] Serum or plasma glucose marychuy urement (mass/volume)Ordered By: Frank Silva on 07-04-2022 Glucose [Mass/Vol] 97 mg/dL 70-100 [facility] Comment on above: ADA recommended refe rence rangeRandom Glucose Reference Range is dependent on time and content of last meal. Glucose of more than 200 mg/dL in a nonstressed, ambulatory subject supports the diagnosis of Diabetes Mellitus. Serum or plasma non-glucuron idated bilirubin measurement (mass/volume)Ordered By: Frank Silva on 07-04-2022 Bilirubin.indirect [Mass/Vol] TNP [facility] Comment on above: Test not performed Serum or plasma potassium me asurement (moles/volume)Ordered By: Frank Silva on 07-04-2022 Potassium [Moles/Vol] 3.7 mmol/L 3.5-5.1 [facility] Serum or plasma sodium measu rement (moles/volume)Ordered By: Frank Silva on 07-04-2022 Sodium [Moles/Vol] 136 mmol/L 136-146 [facility] Serum or plasma total biliru bin measurement (mass/volume)Ordered By: Frank Silva on 07-04-2022 Bilirubin [Mass/Vol] 0.5 mg/dL 0.3-1.2 [facility] Serum or plasma total carbon dioxide measurement (moles/volume)Ordered By: Frank Silva on 07-04-2022 CO2 [Moles/Vol] 23.0 mmol/L 22.0-30.0 [facility] Serum or plasma urea nitroge n measurement (mass/volume)Ordered By: Frank Silva on 07-04-2022 Urea nitrogen [Mass/Vol] 6 mg/dL 9-23 [facility] Specific gravity Auto test s trip (U) [Rel density]Ordered By: Frank Silva on 07-04-2022 Specific gravity (U) [Rel density] 1.010 1.001-1.03 0 [facility] Squamous epithelial cells de tection in urine sediment by light microscopyOrdered By: Frank Silva on 07-04-2022 Epithelial cells.squamous LM Ql (Urine sed) 0-1 [HPF] 0-2 [facility] Urine bacteria detection by automated methodOrdered By: Frank Silva on 07-04-2022 Bacteria Auto Ql (U) None seen None Seen [facility] Urine clarity by refractomet ry automatedOrdered By: Frank Silva on 07-04-2022 Clarity Refractometry automated (U) Clear Clear [facility] Urine glucose measurement by automated test strip (mass/volume)Ordered By: Frank Silva on 07-04-2022 Glucose Auto test strip (U) [Mass/Vol] Normal mg/dL Normal [facility] Urine hemoglobin detection b y automated test stripOrdered By: Frank Silva on 07-04-2022 Hemoglobin Auto test strip Ql (U) Trace Negative [facility] Urine leukocyte esterase det ection by automated test stripOrdered By: Frank Silva on 07-04-2022 Leukocyte esterase Auto test strip Ql (U) 1+ Negative [facility] Urobilinogen Auto test strip (U) [Mass/Vol]Ordered By: Frank Silva on 07-04-2022 Urobilinogen (U) [Mass/Vol] Normal mg/dL Normal [facility] pH Auto test strip (U)Ordere d By: Frank Silva on 07-04-2022 pH (U) 6.5 [pH] 5.0-9.0 [facility] Activated partial thrombopla stin time (aPTT) in platelet poor plasma by coagulation aOrdered By: Marvin Serrano on 06-01-2022 aPTT Coag (PPP) [Time] 30.4 s 25.1-36.5 [facility] Basophils Auto (Bld) [#/Vol] Ordered By: Marvin Serrano on 06-01-2022 Basophils (Bld) [#/Vol] 0.1 10*3/uL 0.0-0.2 [facility] Basophils/100 WBC Auto (Bld) Ordered By: Marvin Serrano on 06-01-2022 Basophils/100 WBC (Bld) 1.1 % . [facility] Bilirubin Test strip Ql (U)O rdered By: Marvin Serrano on 06-01-2022 Bilirubin Ql (U) Negative Negative [facility] Blood hemoglobin measurement (mass/volume)Ordered By: Marvin Serrano on 06-01-2022 Hemoglobin (Bld) [Mass/Vol] 10.1 g/dL 11.8-15.4 [facility] Blood leukocytes automated c ount (number/volume)Ordered By: Marvin Serrano on 06-01-2022 WBC (Bld) [#/Vol] 7.6 10*3/uL 4.5-11.0 [facility] Body fluid albumin measureme nt (mass/volume)Ordered By: Marvin Serrano on 06-01-2022 Albumin (Body fld) [Mass/Vol] 3.7 g/dL 3.2-5.5 [facility] Color Auto (U)Ordered By: Dane Serrano on 06-01-2022 Color (U) Yellow Yellow [facility] Creatinine and Glomerular fi ltration rate.predicted panel (S/P/Bld)Ordered By: Marvin Serrano on 06-01-2022 Creatinine [Mass/Vol] 0.82 mg/dL 0.44-1.03 [facility] Eosinophils Auto (Bld) [#/Vo l]Ordered By: Marvin Serrano on 06-01-2022 Eosinophils (Bld) [#/Vol] 0.2 10*3/uL 0.0-0.45 [facility] Eosinophils/100 WBC Auto (Bl d)Ordered By: Marvin Serrano on 06-01-2022 Eosinophils/100 WBC (Bld) 2.4 % . [facility] Erythrocyte distribution wid th Auto (RBC) [Ratio]Ordered By: Marvin Serrano on 06-01-2022 Erythrocyte distribution width (RBC) [Ratio] 14.3 % 11.9-15.3 [facility] Estimated glomerular filtrat ion rate (GFR) non- AmericanOrdered By: Marvin Serrano on 06-01-2022 GFR/1.73 sq M.predicted among non-blacks MDRD (S/P/Bld) [Vol rate/Area] > 60 mL/Min [facility] Globulin Calc (S) [Mass/Vol] Ordered By: Marvin Serrano on 06-01-2022 Globulin (S) [Mass/Vol] 3.4 g/dL [facility] HCG ( test) IA.rapi d Ql (U)Ordered By: Marvin Serrano on 06-01-2022 HCG ( test) Ql (U) Negative [facility] Hematocrit Auto (Bld) [Volum e fraction]Ordered By: Marvin Serrano on 06-01-2022 Hematocrit (Bld) [Volume fraction] 32.2 % 34.0-46.4 [facility] Ketones Auto test strip (U) [Mass/Vol]Ordered By: Marvin Serrano on 06-01-2022 Ketones (U) [Mass/Vol] Negative Negative Fi [facility] - CoagulationOrde red By: Marvin Serrano on 06-01-2022 PT Coag (PPP) [Time] 12.4 s 9.0-12.9 [facility] - Hematology and Cell countsOrdered By: Marvin Serrano on 06-01-2022 Nucleated RBC/100 WBC (Bld) [Ratio] 0.1 % 0-0.5 [facility] Lymphocytes Auto (Bld) [#/Vo l]Ordered By: Marvin Serrano on 06-01-2022 Lymphocytes (Bld) [#/Vol] 2.7 10*3/uL 1.00-4.8 [facility] Lymphocytes/100 WBC Auto (Bl d)Ordered By: Marvin Serrano on 06-01-2022 Lymphocytes/100 WBC (Bld) 35.8 % . [facility] MCH Auto (RBC) [Entitic mass ]Ordered By: Marvin Serrano on 06-01-2022 MCH (RBC) [Entitic mass] 22.0 pg 24.7-34.3 [facility] MCHC Auto (RBC) [Mass/Vol]Or dered By: Marvin Serrano on 06-01-2022 MCHC (RBC) [Mass/Vol] 31.3 g/dL 32.0-35.0 [facility] MCV Auto (RBC) [Entitic vol] Ordered By: Marvin Serrano on 06-01-2022 MCV (RBC) [Entitic vol] 70.4 fL 80-100 [facility] Monocytes Auto (Bld) [#/Vol] Ordered By: Marvin Serrano on 06-01-2022 Monocytes (Bld) [#/Vol] 0.5 10*3/uL 0.0-0.8 [facility] Monocytes/100 WBC Auto (Bld) Ordered By: Marvin Serrano on 06-01-2022 Monocytes/100 WBC (Bld) 7.1 % . [facility] Neutrophils Auto (Bld) [#/Vo l]Ordered By: Marvin Serrano on 06-01-2022 Neutrophils (Bld) [#/Vol] 4.1 10*3/uL 1.8-7.7 [facility] Neutrophils/100 WBC Auto (Bl d)Ordered By: Marvin Serrano on 06-01-2022 Neutrophils/100 WBC (Bld) 53.6 % . [facility] Nitrite Test strip Ql (U)Ord ered By: Marvin Serrano on 06-01-2022 Nitrite Ql (U) Negative Negative [facility] No Panel InformationOrdered By: Marvin Serrano on 06-01-2022 Estimated GFR () > 60 mL/Min [facility] Comment on above: GFR estimated refere nce range: According to KDOQI guidelines, <60 ml/min/1.73m2 is sufficient to diagnose a patient with chronic kidney disease. Pharmacy Creatinine Clearance (Chem 97.22 [facility] Platelet mean volume Auto (B ld) [Entitic vol]Ordered By: Marvin Serrano on 06-01-2022 Platelet mean volume (Bld) [Entitic vol] 9.9 fL 6.3-10.7 [facility] Platelet poor plasma interna tional normalized ratio (INR) by coagulation assay (relatOrdered By: Marvin Serrano on 06-01-2022 INR Coag (PPP) [Relative time] 1.1 {INR} [facility] Comment on above: INR Therapeutic Rang [...] 06-01-2022 Platelets (Bld) [#/Vol] 218 10*3/uL 150-450 [facility] Protein Auto test strip (U) [Mass/Vol]Ordered By: Marvin Serrano on 06-01-2022 Protein (U) [Mass/Vol] Negative [facility] Protein [Mass/volume] in Ser um or PlasmaOrdered By: Marvin Serrano on 06-01-2022 Protein [Mass/Vol] 7.1 g/dL 6.1-7.9 [facility] RBC Auto (Bld) [#/Vol]Ordere d By: Marivn Serrano on 06-01-2022 RBC (Bld) [#/Vol] 4.57 10*6/uL 3.60-5.00 [facility] Serum or plasma alanine keene otransferase measurement without P-5'-P (enzymatic activiOrdered By: Marvin Serrano on 06-01-2022 ALT No additional P-5'-P [Catalytic activity/Vol] 12 U/L 10-60 [facility] Serum or plasma albumin/glob ulin mass ratioOrdered By: Marvin Serrano on 06-01-2022 Albumin/Globulin [Mass ratio] 1.1 {ratio} [facility] Serum or plasma alkaline jared sphatase measurement (enzymatic activity/volume)Ordered By: Marvin Serrano on 06-01-2022 ALP [Catalytic activity/Vol] 46 U/L 32-92 [facility] Serum or plasma anion gap de terminationOrdered By: Marvin Serrano on 06-01-2022 Anion gap [Moles/Vol] 15.3 mmol/L 6.0-15.0 [facility] Serum or plasma aspartate am inotransferase measurement (enzymatic activity/volume)Ordered By: Marvin Serrano on 06-01-2022 AST [Catalytic activity/Vol] 13 U/L 10-42 [facility] Serum or plasma calcium marychuy urement (mass/volume)Ordered By: Marvin Serrano on 06-01-2022 Calcium [Mass/Vol] 9.1 mg/dL 8.2-10.2 [facility] Serum or plasma chloride nemo surement (moles/volume)Ordered By: Marvin Serrano on 06-01-2022 Chloride [Moles/Vol] 103 mmol/L 95-114 [facility] Serum or plasma glucose marychuy urement (mass/volume)Ordered By: Marvin Serrano on 06-01-2022 Glucose [Mass/Vol] 113 mg/dL 70-100 [facility] Comment on above: ADA recommended refe [...] on 06-01-2022 Potassium [Moles/Vol] 3.0 mmol/L 3.5-5.1 [facility] Serum or plasma sodium measu rement (moles/volume)Ordered By: Marvin Serrano on 06-01-2022 Sodium [Moles/Vol] 137 mmol/L 136-146 [facility] Serum or plasma total biliru bin measurement (mass/volume)Ordered By: Marvin Serrano on 06-01-2022 Bilirubin [Mass/Vol] 0.4 mg/dL 0.3-1.2 [facility] Serum or plasma total carbon dioxide measurement (moles/volume)Ordered By: Marvin Serrano on 06-01-2022 CO2 [Moles/Vol] 21.7 mmol/L 22.0-30.0 [facility] Serum or plasma urea nitroge n measurement (mass/volume)Ordered By: Marvin Serrano on 06-01-2022 Urea nitrogen [Mass/Vol] 11 mg/dL 9-23 [facility] Specific gravity Auto test s trip (U) [Rel density]Ordered By: Marvin Serrano on 06-01-2022 Specific gravity (U) [Rel density] 1.003 1.001-1.03 0 [facility] Urine clarity by refractomet ry automatedOrdered By: Marvin Serrano on 06-01-2022 Clarity Refractometry automated (U) Clear Clear [facility] Urine glucose measurement by automated test strip (mass/volume)Ordered By: Marvin Serrano on 06-01-2022 Glucose Auto test strip (U) [Mass/Vol] Normal mg/dL Normal [facility] Urine hemoglobin detection b y automated test stripOrdered By: Marvin Serrano on 06-01-2022 Hemoglobin Auto test strip Ql (U) Negative Negative [facility] Urine leukocyte esterase det ection by automated test stripOrdered By: Marvin Zach on 06-01-2022 Leukocyte esterase Auto test strip Ql (U) Negative Negative [facility] Urobilinogen Auto test strip (U) [Mass/Vol]Ordered By: Marvin Zach on 06-01-2022 Urobilinogen (U) [Mass/Vol] Normal mg/dL Normal [facility] pH Auto test strip (U)Ordere d By: Marvin Serrano on 06-01-2022 pH (U) 7.0 [pH] 5.0-9.0 [facility] Office Visit (Oncology Surge ry)on 04-21-2022 [...] need for her to return to her BACTERIOLOGY RESEARCH ASSISTANT Dr. Pendleton for discussion of ongoing treatment. [...] hoursAbdominal wall (more content not included)... Normal [facility] CT ABD/PELV W CONon 04-19-20 CT ABD/PELV [...] Lenny TANNER Date: 2022-04-18 23:01 Normal [facility] ER URINE PROFILEon 2 Bilirubin Ql (U) Negative Normal NEGATIVE [facility] Comment on above: Performed By: #### U MICRO, PREGU, ERUR #### [facility] [address] [address] [address] Adam Mejía Clarity (U) CLEAR Normal CLEAR [facility] Comment on above: Performed By: #### U MICRO, PREGU, ERUR #### [facility] [address] [address] [address] Adam Mejía Color (U) YELLOW Normal YELLOW [facility] Comment on above: Performed By: #### U MICRO, PREGU, ERUR #### [facility] [address] [place] [address] Dr. Adam Mejía ERUAHD A micrscopic examina tion will be performed if indicated. Normal [facility] Comment on above: Performed By: #### U MICRO, PREGU, ERUR #### [facility] [address] [address] [address] Adam Mejía Glucose Ql (U) Negative Normal NEGATIVE [facility] Comment on above: Performed By: #### U MICRO, PREGU, ERUR #### [facility] [address] [address] [address] Adam Mejía Hemoglobin Ql (U) SMALL Abnormal NEGATIVE [facility] Comment on above: Performed By: #### U MICRO, PREGU, ERUR #### [facility] [address] [address] [address] Adam Mejía Ketones Ql (U) >=80 Abnormal NEGATIVE [facility] Comment on above: Performed By: #### U MICRO, PREGU, ERUR #### [facility] [address] [address] [address] Adam Mejía LEUKOCYTES Negative Normal NEGATIVE [facility] Comment on above: Performed By: #### U MICRO, PREGU, ERUR #### [facility] [address] [place] [address] Dr. Adam Mejía Nitrite Ql (U) Negative Normal NEGATIVE [facility] Comment on above: Performed By: #### U MICRO, PREGU, ERUR #### [facility] [address] [address] [address] Adam Mejía pH (U) 6.5 [pH] Normal 5-9 [facility] Comment on above: Performed By: #### U MICRO, PREGU, ERUR #### [facility] [address] [address] [address] Adam Mejía SPEC GRAVITY 1.015 Normal 1.005-<=1. 025 [facility] Comment on above: Performed By: #### U MICRO, PREGU, ERUR #### [facility] [address] [place] [address] Dr. Adam Mejía UA PROTEIN Negative Normal NEGATIVE/ TRACE [facility] Comment on above: Performed By: #### U MICRO, PREGU, ERUR #### [facility] [address] [place] [address] Dr. Adam Mejía UR MICRO IND INDICATED Normal [facility] Comment on above: Performed By: #### U MICRO, PREGU, ERUR #### [facility] [address] [place] [address] Dr. Adam Mejía Urobilinogen Qn (U) 0.2 {Brinda'U}/dL Normal 0.2 - 1. 0 [facility] Comment on above: Performed By: #### U MICRO, PREGU, ERUR #### [facility] [address] [place] [address] Dr. Adam Mejía URon 04-18-2022 , QUAL Negative Normal NEGATIVE [facility] Comment on above: Performed By: #### U MICRO, PREGU, ERUR #### [facility] [address] [place] [address] Dr. Adam Mejía URINE MICROSCOPIC ONLYon BACTERIA TRACE Abnormal NONE SEEN [facility] Comment on above: Performed By: #### U MICRO, PREGU, ERUR #### [facility] [address] [address] [address] Adam Mejía Bacteria identified Cx Nom (U) NOT INDICATED Normal [facility] Comment on above: Performed By: #### U MICRO, PREGU, ERUR #### [facility] [address] [address] [address] Adam Mejía CAST NONE SEEN Normal NONE SEEN [facility] Comment on above: Performed By: #### U MICRO, PREGU, ERUR #### [facility] [address] [address] [address] Adam Mejía Crystals LM Nom (Urine sed) NONE SEEN Normal NONE SEEN [facility] Comment on above: Performed By: #### U MICRO, PREGU, ERUR #### [facility] [address] [place] [address] Dr. Adam Mejía Epithelial cells LM Ql (Urine sed) FEW Abnormal NONE SEEN /RARE [facility] Comment on above: Performed By: #### U MICRO, PREGU, ERUR #### [facility] [address] [address] [address] Adam Mejía MUCOUS NONE SEEN Normal NONE SEEN [facility] Comment on above: Performed By: #### U MICRO, PREGU, ERUR #### [facility] [address] [place] [address] Dr. Adam Mejía RBC 0-2 Normal 0-2 [facility] Comment on above: Performed By: #### U MICRO, PREGU, ERUR #### [facility] [address] [address] [address] Adam Mejía WBC 0-2 Abnormal NONE SEEN [facility] Comment on above: Performed By: #### U MICRO, PREGU, ERUR #### [facility] [address] [place] [address] Dr. Adam Mejía Body fluid albumin measureme nt (mass/volume)Ordered By: Yudelka Lopez on 04-14-2022 Albumin (Body fld) [Mass/Vol] 3.9 g/dL 3.2-5.5 [facility] Creatinine and Glomerular fi ltration rate.predicted panel (S/P/Bld)Ordered By: Yudelka Lopez on 04-14-2022 Creatinine [Mass/Vol] 0.77 mg/dL 0.44-1.03 [facility] Estimated glomerular filtrat ion rate (GFR) non- AmericanOrdered By: Yudelka Lopez on 04-14-2022 GFR/1.73 sq M.predicted among non-blacks MDRD (S/P/Bld) [Vol rate/Area] > 60 mL/Min [facility] Globulin Calc (S) [Mass/Vol] Ordered By: Yudelka Lopez on 04-14-2022 Globulin (S) [Mass/Vol] 3.0 g/dL [facility] No Panel InformationOrdered By: Yudelka Lopez on 04-14-2022 Estimated GFR () > 60 mL/Min [facility] Comment on above: GFR estimated refere nce range: According to KDOQI guidelines, <60 ml/min/1.73m2 is sufficient to diagnose a patient with chronic kidney disease. Pharmacy Creatinine Clearance (Chem N/A [facility] Protein [Mass/volume] in Ser um or PlasmaOrdered By: Yudelka Lopez on 04-14-2022 Protein [Mass/Vol] 6.9 g/dL 6.1-7.9 [facility] Serum or plasma alanine keene otransferase measurement without P-5'-P (enzymatic activiOrdered By: Yudelka Lopze on 04-14-2022 ALT No additional P-5'-P [Catalytic activity/Vol] 13 U/L 10-60 [facility] Serum or plasma albumin/glob ulin mass ratioOrdered By: Yudelka Lopez on 04-14-2022 Albumin/Globulin [Mass ratio] 1.3 {ratio} [facility] Serum or plasma alkaline jared sphatase measurement (enzymatic activity/volume)Ordered By: Yudelka Lopez on 04-14-2022 ALP [Catalytic activity/Vol] 44 U/L 32-92 [facility] Serum or plasma aspartate am inotransferase measurement (enzymatic activity/volume)Ordered By: Yudelka Lopez on 04-14-2022 AST [Catalytic activity/Vol] 14 U/L 10-42 [facility] Serum or plasma calcium marychuy urement (mass/volume)Ordered By: Yudelka Lopez on 04-14-2022 Calcium [Mass/Vol] 9.5 mg/dL 8.2-10.2 [facility] Serum or plasma chloride nemo surement (moles/volume)Ordered By: Yudelka Lopez on 04-14-2022 Chloride [Moles/Vol] 104 mmol/L 95-114 [facility] Serum or plasma glucose marychuy urement (mass/volume)Ordered By: Yudelka Lopez on 04-14-2022 Glucose [Mass/Vol] 85 mg/dL 70-100 [facility] Comment on above: ADA recommended refe [...] on 04-14-2022 Potassium [Moles/Vol] 4.2 mmol/L 3.5-5.1 [facility] Serum or plasma sodium measu rement (moles/volume)Ordered By: Yudelka Lopez on 04-14-2022 Sodium [Moles/Vol] 136 mmol/L 136-146 [facility] Serum or plasma total biliru bin measurement (mass/volume)Ordered By: Yudelka Lopez on 04-14-2022 Bilirubin [Mass/Vol] 0.2 mg/dL 0.3-1.2 [facility] Serum or plasma total carbon dioxide measurement (moles/volume)Ordered By: Yudelka Lopez on 04-14-2022 CO2 [Moles/Vol] 24.5 mmol/L 22.0-30.0 [facility] Serum or plasma urea nitroge n measurement (mass/volume)Ordered By: Yudelka Lopez on 04-14-2022 Urea nitrogen [Mass/Vol] 6 mg/dL 9-23 [facility] AMYLASEon 04-11-2022 Amylase [Catalytic activity/Vol] 54 U/L Normal 25-115 [facility] Comment on above: Performed By: #### A MY, CMP, LIPA #### [facility] [address] [address] [address] Adam Mejía CBC AUTO DIFFon 04-11-2022 BASO # 0.0 103/ul Normal 0.0-0.1 [facility] Comment on above: Performed By: #### C BC #### [facility] [address] [place] [address] Dr. Adam Mejía Basophils/100 WBC (Bld) 0.2 % Normal 0.2-2.0 [facility] Comment on above: Performed By: #### C BC #### [facility] [address] [place] [address] Dr. Aadm Mejía EO # 0.1 103/ul Normal 0.0-0.7 [facility] Comment on above: Performed By: #### C BC #### [facility] [address] [place] [address] Dr. Adam Mejía Eosinophils/100 WBC (Bld) 0.6 % Critically low 0.9-7.0 [facility] Comment on above: Performed By: #### C BC #### [facility] [address] [place] [address] Dr. Adam Mejía Erythrocyte distribution width (RBC) [Ratio] 13.9 % Normal 11.0-15.0 [facility] Comment on above: Performed By: #### C BC #### [facility] [address] [place] [address] Dr. Adam Mejía Hematocrit (Bld) [Volume fraction] 31.4 % Critically low 36.0-48.0 [facility] Comment on above: Performed By: #### C BC #### [facility] [address] [place] [address] Dr. Adam Mejía Hemoglobin (Bld) [Mass/Vol] 9.8 g/dL Critically low 12.0-16.0 [facility] Comment on above: Performed By: #### C BC #### [facility] [address] [place] [address] Dr. Adam Mejía IG # 0.03 10e3/ul Normal 0.00-0.03 [facility] Comment on above: Performed By: #### C BC #### [facility] [address] [place] [address] Dr. Adam Mejía IG % 0.3 % Normal 0.0-0.5 [facility] Comment on above: Performed By: #### C BC #### [facility] [address] [place] [address] Dr. Adam Mejía LYMPH # 1.1 103/ul Critically low 1.2-3.8 [facility] Comment on above: Performed By: #### C BC #### [facility] [address] [place] [address] Dr. Adam Mejía Lymphocytes/100 WBC (Bld) 9.3 % Critically low 20.5-60.0 [facility] Comment on above: Performed By: #### C BC #### [facility] [address] [place] [address] Dr. Adam Mejía MANUAL DIFF REQ NO Normal [facility] Comment on above: Performed By: #### C BC #### [facility] [address] [place] [address] Dr. Adam Mejía MCH (RBC) [Entitic mass] 22.5 pg Critically low 26.7-34.0 [facility] Comment on above: Performed By: #### C BC #### [facility] [address] [place] [address] Dr. Adam Mejía MCHC (RBC) [Mass/Vol] 31.2 g/dL Normal 29.9-35.2 [facility] Comment on above: Performed By: #### C BC #### [facility] [address] [place] [address] Dr. Adam Mejía MCV (RBC) [Entitic vol] 72.0 fL Critically low 81.0-99.0 [facility] Comment on above: Performed By: #### C BC #### [facility] [address] [place] [address] Dr. Adam Mejía MONO # 0.6 103/ul Normal 0.3-0.8 [facility] Comment on above: Performed By: #### C BC #### [facility] [address] [place] [address] Dr. Adam Mejía Monocytes/100 WBC (Bld) 4.6 % Normal 1.7-12.0 [facility] Comment on above: Performed By: #### C BC #### [facility] [address] [place] [address] Dr. Adam Mejía NEUT # 10.2 103/ul Critically high 1.4-6.5 [facility] Comment on above: Performed By: #### C BC #### [facility] [address] [place] [address] Dr. Adam Mejía Neutrophils/100 WBC (Bld) 85.0 % Critically high 43.0-75.0 [facility] Comment on above: Performed By: #### C BC #### [facility] [address] [place] [address] Dr. Adam Mejía Platelet mean volume (Bld) [Entitic vol] 12.1 fL Normal 9.5-13.5 [facility] Comment on above: Performed By: #### C BC #### [facility] [address] [place] [address] Dr. Adam Mejía PLT 270 103/ul Normal 150-450 [facility] Comment on above: Performed By: #### C BC #### [facility] [address] [place] [address] Dr. Adam Mejía RBC 4.36 106/ul Normal 4.20-5.40 [facility] Comment on above: Performed By: #### C BC #### [facility] [address] [place] [address] Dr. Adam Mejía WBC 12.0 103/ul Critically high 4.0-11.0 [facility] Comment on above: Performed By: #### C BC #### [facility] [address] [place] [address] Dr[address] Me[address]ía [address] ABD/PELV W CONon [...] NADIA MORROW Date: 2022-04-11 07:25 Normal [facility] LIPASEon 04-11-2022 Lipase [Catalytic activity/Vol] 152.0 U/L Normal 73.0-393.0 [facility] Comment on above: Performed By: #### A MY, CMP, LIPA #### [facility] [address] [place] [address] Dr. Adam Mejía PREG HCG QUALon 04-11-2022 , QUAL Negative Normal NEGATIVE [facility] Comment on above: Performed By: #### U MICRO, PREGU, ERUR #### [facility] [address] [address] [address] Adam Mejía PROF 14(COMP METB)on 022 Albumin [Mass/Vol] 3.8 g/dL Normal 3.4-5.0 [facility] Comment on above: Performed By: #### U MICRO, PREGU, ERUR #### [facility] [address] [address] [address] Adam Mejía Albumin/Globulin [Mass ratio] 0.9 {ratio} Normal [facility] Comment on above: Performed By: #### U MICRO, PREGU, ERUR #### [facility] [address] [place] [address] Dr. Adam Mejía ALP [Catalytic activity/Vol] 51 U/L Normal 46-116 [facility] Comment on above: Performed By: #### U MICRO, PREGU, ERUR #### [facility] [address] [place] [address] Dr. Adam Mejía ALT [Catalytic activity/Vol] 11 U/L Critically low 14-59 [facility] Comment on above: Performed By: #### U MICRO, PREGU, ERUR #### [facility] [address] [place] [address] Dr. Adam Mejía Anion gap [Moles/Vol] 11.9 mmol/L Normal [facility] Comment on above: Performed By: #### U MICRO, PREGU, ERUR #### [facility] [address] [place] [address] Dr. Adam Mejía AST [Catalytic activity/Vol] 14 U/L Critically low 15-37 [facility] Comment on above: Performed By: #### U MICRO, PREGU, ERUR #### [facility] [address] [place] [address] Dr. Adam Mejía Bilirubin [Mass/Vol] 0.4 mg/dL Normal 0.2-1.0 [facility] Comment on above: Performed By: #### U MICRO, PREGU, ERUR #### [facility] [address] [place] [address] Dr. Adam Mejía Calcium [Mass/Vol] 9.4 mg/dL Normal 8.5-10.1 [facility] Comment on above: Performed By: #### U MICRO, PREGU, ERUR #### [facility] [address] [place] [address] Dr. Adam Mejía Chloride [Moles/Vol] 104 mmol/L Normal 98-107 [facility] Comment on above: Performed By: #### U MICRO, PREGU, ERUR #### [facility] [address] [address] [address] Adam Mejía CO2 [Moles/Vol] 26.1 mmol/L Normal 21.0-32.0 [facility] Comment on above: Performed By: #### U MICRO, PREGU, ERUR #### [facility] [address] [address] [address] Adam Mejía Creatinine [Mass/Vol] 0.78 mg/dL Normal 0.55-1.02 [facility] Comment on above: Performed By: #### U MICRO, PREGU, ERUR #### [facility] [address] [address] [address] Adam Mejía EGFR-AF TONGAN >60 Normal >=60 [facility] Comment on above: Performed By: #### U MICRO, PREGU, ERUR #### [facility] [address] [address] [address] Adam Mejía EGFR-NON AF TONGAN >60 Normal >=60 [facility] Comment on above: Performed By: #### U MICRO, PREGU, ERUR #### [facility] [address] [address] [address] Adam Mejía Globulin (S) [Mass/Vol] 4.1 g/dL Normal [facility] Comment on above: Performed By: #### U MICRO, PREGU, ERUR #### [facility] [address] [address] [address] Adam Mejía Glucose [Mass/Vol] 111 mg/dL Critically high 74-106 [facility] Comment on above: Performed By: #### U MICRO, PREGU, ERUR #### [facility] [address] [address] [address] Adam Mejía Potassium [Moles/Vol] 4.0 mmol/L Normal 3.5-5.1 [facility] Comment on above: Performed By: #### U MICRO, PREGU, ERUR #### [facility] [address] [address] [address] Adam Mejía Protein [Mass/Vol] 7.9 g/dL Normal 6.4-8.2 [facility] Comment on above: Performed By: #### U MICRO PREGU, ERUR #### [facility] [address] [address] [address] Adam Mejía Sodium [Moles/Vol] 138 mmol/L Normal 136-145 [facility] Comment on above: Performed By: #### U MICRO PREGU, ERUR #### [facility] [address] [address] [address] Adam Mejía Urea nitrogen [Mass/Vol] 10.0 mg/dL Normal 7.0-18.0 [facility] Comment on above: Performed By: #### U VERA PREGU, ERUR #### [facility] [address] [address] [address] Adam Mejía Urea nitrogen/Creatinine [Mass ratio] 12.8 mg/mg Normal [facility] Comment on above: Performed By: #### U VERA PREGU, ERUR #### [facility] [address] [address] [address] Adam Mejía XR ABD FLAT UP_PA [...] by: NADIA MORROW Date: 2022-04-11 06:26 Normal [facility] Blood Pressure Cuff Sizeon 0 04-07-2022 Tobacco use status CPHS b) No [facility] Work Phone: Blood Pressure Cuff Size Adult [facility] Work Phone: Office Visit (Oncology Surge ry)on 04-07-2022 Follow-up visit Diagnoses/Problems Assessed Abdominal wall mass (519.30) (R22.2) Orders Abdominal wall mass Continue: Ondansetron [...] return. The patient will return to her BACTERIOLOGY RESEARCH ASSISTANT Dr. Pendleton for discussion of ongoing treatment. [...] aPTT Coag (PPP) [Time] 29.4 s 25.1-36.5 [facility] Albumin [Mass/volume] in Ser um or PlasmaOrdered By: Frank Silva on 04-04-2022 Albumin [Mass/Vol] 3.6 g/dL 3.2-5.5 [facility] Automated erythrocytes count in urine sediment (number/area)Ordered By: Janette Dior on 04-04-2022 RBC Auto (Urine sed) [#/Area] 20-49 [HPF] 0-4 [facility] Automated leukocytes count i n urine sediment (number/area)Ordered By: Janette Dior on 04-04-2022 WBC Auto (Urine sed) [#/Area] 10-19 [HPF] 0-4 [facility] Basophils Auto (Bld) [#/Vol] Ordered By: Frank Silva on 04-04-2022 Basophils (Bld) [#/Vol] 0.0 10*3/uL 0.0-0.2 [facility] Basophils/100 WBC Auto (Bld) Ordered By: Frank Silva on 04-04-2022 Basophils/100 WBC (Bld) 0.4 % . [facility] Bilirubin Test strip Ql (U)O rdered By: Janette Dior on 04-04-2022 Bilirubin Ql (U) Negative Negative [facility] Blood hemoglobin measurement (mass/volume)Ordered By: Frank Silva on 04-04-2022 Hemoglobin (Bld) [Mass/Vol] 10.0 g/dL 11.8-15.4 [facility] Blood leukocytes automated c ount (number/volume)Ordered By: Frank Silva on 04-04-2022 WBC (Bld) [#/Vol] 9.8 10*3/uL 4.5-11.0 [facility] Color Auto (U)Ordered By: Anatoliy Dior on 04-04-2022 Color (U) Yellow Yellow [facility] Creatinine and Glomerular fi ltration rate.predicted panel (S/P/Bld)Ordered By: Frank Silva on 04-04-2022 Creatinine [Mass/Vol] 0.93 mg/dL 0.44-1.03 [facility] Eosinophils Auto (Bld) [#/Vo l]Ordered By: Frank Silva on 04-04-2022 Eosinophils (Bld) [#/Vol] 0.0 10*3/uL 0.0-0.45 [facility] Eosinophils/100 WBC Auto (Bl d)Ordered By: Frank Silva on 04-04-2022 Eosinophils/100 WBC (Bld) 0.3 % . [facility] Erythrocyte distribution wid th Auto (RBC) [Ratio]Ordered By: Frank Silva on 04-04-2022 Erythrocyte distribution width (RBC) [Ratio] 14.1 % 11.9-15.3 [facility] Estimated glomerular filtrat ion rate (GFR) non- AmericanOrdered By: Frank Silva on 04-04-2022 GFR/1.73 sq M.predicted among non-blacks MDRD (S/P/Bld) [Vol rate/Area] > 60 mL/Min [facility] Globulin Calc (S) [Mass/Vol] Ordered By: Frank Silva on 04-04-2022 Globulin (S) [Mass/Vol] 3.1 g/dL [facility] HCG ( test) IA.rapi d Ql (U)Ordered By: Janette Dior on 04-04-2022 HCG ( test) Ql (U) Negative [facility] HCG ( test) IA.rapi d Ql (U)Ordered By: Frank Silva on 04-04-2022 HCG ( test) Ql (U) Negative [facility] Hematocrit Auto (Bld) [Volum e fraction]Ordered By: Frank Silva on 04-04-2022 Hematocrit (Bld) [Volume fraction] 31.9 % 34.0-46.4 [facility] Ketones Auto test strip (U) [Mass/Vol]Ordered By: Janette Dior on 04-04-2022 Ketones (U) [Mass/Vol] 4+ Negative [facility] Laboratory - Chemistry and C hemistry - challengeOrdered By: Frank Silva on 04-04-2022 Natriuretic peptide B (Bld) [Mass/Vol] 44.0 pg/mL 5-100 [facility] Laboratory - CoagulationOrde red By: Frank Silva on 04-04-2022 PT Coag (PPP) [Time] 14.0 s 9.0-12.9 [facility] Laboratory - Hematology and Cell countsOrdered By: Frank Silva on 04-04-2022 Nucleated RBC/100 WBC (Bld) [Ratio] 0.0 % 0-0.5 [facility] Laboratory - UrinalysisOrder ed By: Janette Dior on 04-04-2022 Hyaline casts LM Ql (Urine sed) 0-8 [LPF] 0-8 [facility] Lymphocytes Auto (Bld) [#/Vo l]Ordered By: Frank Silva on 04-04-2022 Lymphocytes (Bld) [#/Vol] 2.1 10*3/uL 1.00-4.8 [facility] Lymphocytes/100 WBC Auto (Bl d)Ordered By: Frank Silva on 04-04-2022 Lymphocytes/100 WBC (Bld) 21.5 % . [facility] MCH Auto (RBC) [Entitic mass ]Ordered By: Frank Silva on 04-04-2022 MCH (RBC) [Entitic mass] 22.2 pg 24.7-34.3 [facility] MCHC Auto (RBC) [Mass/Vol]Or dered By: Frank Silva on 04-04-2022 MCHC (RBC) [Mass/Vol] 31.2 g/dL 32.0-35.0 [facility] MCV Auto (RBC) [Entitic vol] Ordered By: Frank Silva on 04-04-2022 MCV (RBC) [Entitic vol] 71.2 fL 80-100 [facility] Monocytes Auto (Bld) [#/Vol] Ordered By: Frank Silva on 04-04-2022 Monocytes (Bld) [#/Vol] 0.7 10*3/uL 0.0-0.8 [facility] Monocytes/100 WBC Auto (Bld) Ordered By: Frank Silva on 04-04-2022 Monocytes/100 WBC (Bld) 6.9 % . [facility] Neutrophils Auto (Bld) [#/Vo l]Ordered By: Frank Silva on 04-04-2022 Neutrophils (Bld) [#/Vol] 7.0 10*3/uL 1.8-7.7 [facility] Neutrophils/100 WBC Auto (Bl d)Ordered By: Frank Silva on 04-04-2022 Neutrophils/100 WBC (Bld) 70.9 % . [facility] Nitrite Test strip Ql (U)Ord ered By: Janette Dior on 04-04-2022 Nitrite Ql (U) Negative Negative [facility] No Panel InformationOrdered By: Frank Silva on 04-04-2022 Estimated GFR () > 60 mL/Min [facility] Comment on above: GFR estimated refere nce range: According to KDOQI guidelines, <60 ml/min/1.73m2 is sufficient to diagnose a patient with chronic kidney disease. Pharmacy Creatinine Clearance (Chem 84.97 [facility] Platelet mean volume Auto (B ld) [Entitic vol]Ordered By: Frank Silva on 04-04-2022 Platelet mean volume (Bld) [Entitic vol] 9.6 fL 6.3-10.7 [facility] Platelet poor plasma interna tional normalized ratio (INR) by coagulation assay (relatOrdered By: Frank Silva on 04-04-2022 INR Coag (PPP) [Relative time] 1.2 {INR} [facility] Comment on above: INR Therapeutic Rang [...] 04-04-2022 Platelets (Bld) [#/Vol] 224 10*3/uL 150-450 [facility] Protein Auto test strip (U) [Mass/Vol]Ordered By: Janette Dior on 04-04-2022 Protein (U) [Mass/Vol] Trace mg/dL Negative [facility] Protein [Mass/volume] in Ser um or PlasmaOrdered By: Frank Silva on 04-04-2022 Protein [Mass/Vol] 6.7 g/dL 6.1-7.9 [facility] RBC Auto (Bld) [#/Vol]Ordere d By: Frank Silva on 04-04-2022 RBC (Bld) [#/Vol] 4.49 10*6/uL 3.60-5.00 [facility] Serum or plasma alanine keene otransferase measurement without P-5'-P (enzymatic activiOrdered By: Frank Silva on 04-04-2022 ALT No additional P-5'-P [Catalytic activity/Vol] 15 U/L 10-60 [facility] Serum or plasma albumin/glob ulin mass ratioOrdered By: Frank Silva on 04-04-2022 Albumin/Globulin [Mass ratio] 1.2 {ratio} [facility] Serum or plasma alkaline jared sphatase measurement (enzymatic activity/volume)Ordered By: Frank Silva on 04-04-2022 ALP [Catalytic activity/Vol] 48 U/L 32-92 [facility] Serum or plasma aspartate am inotransferase measurement (enzymatic activity/volume)Ordered By: Frank Silva on 04-04-2022 AST [Catalytic activity/Vol] 15 U/L 10-42 [facility] Serum or plasma calcium marychuy urement (mass/volume)Ordered By: Frank Silva on 04-04-2022 Calcium [Mass/Vol] 9.0 mg/dL 8.2-10.2 [facility] Serum or plasma chloride nemo surement (moles/volume)Ordered By: Frank Silva on 04-04-2022 Chloride [Moles/Vol] 102 mmol/L 95-114 [facility] Serum or plasma glucose marychuy urement (mass/volume)Ordered By: Frank Silva on 04-04-2022 Glucose [Mass/Vol] 92 mg/dL 70-100 [facility] Comment on above: ADA recommended refe rence range Random Glucose Reference Range is dependent on time and content of last meal. Glucose of more than 200 mg/dL in a nonstressed, ambulatory subject supports the diagnosis of Diabetes Mellitus. Serum or plasma potassium me asurement (moles/volume)Ordered By: Frank Silva on 04-04-2022 Potassium [Moles/Vol] 3.1 mmol/L 3.5-5.1 [facility] Serum or plasma sodium measu rement (moles/volume)Ordered By: Frank Silva on 04-04-2022 Sodium [Moles/Vol] 137 mmol/L 136-146 [facility] Serum or plasma total biliru bin measurement (mass/volume)Ordered By: Frank Silva on 04-04-2022 Bilirubin [Mass/Vol] 0.7 mg/dL 0.3-1.2 [facility] Serum or plasma total carbon dioxide measurement (moles/volume)Ordered By: Frank Silva on 04-04-2022 CO2 [Moles/Vol] 23.6 mmol/L 22.0-30.0 [facility] Serum or plasma urea nitroge n measurement (mass/volume)Ordered By: Frank Silva on 04-04-2022 Urea nitrogen [Mass/Vol] 8 mg/dL 9- [facility] Specific gravity Auto test s trip (U) [Rel density]Ordered By: Janette Dior on 04-04-2022 Specific gravity (U) [Rel density] 1.027 1.001-1.03 0 [facility] Squamous epithelial cells de tection in urine sediment by light microscopyOrdered By: Janette Dior on 04-04-2022 Epithelial cells.squamous LM Ql (Urine sed) 10-19 [HPF] 0-2 [facility] Troponin I.cardiac [Mass/vol ume] in Serum or Plasma by High sensitivity methodOrdered By: Frank Silva on 04-04-2022 Troponin I.cardiac High sensitivity method [Mass/Vol] 3 pg/mL 0-15 [facility] Urine bacteria detection by automated methodOrdered By: Janette Dior on 04-04-2022 Bacteria Auto Ql (U) None seen None Seen [facility] Urine clarity by refractomet ry automatedOrdered By: Janette Dior on 04-04-2022 Clarity Refractometry automated (U) Cloudy Clear [facility] Urine glucose measurement by automated test strip (mass/volume)Ordered By: Janette Dior on 04-04-2022 Glucose Auto test strip (U) [Mass/Vol] Normal mg/dL Normal [facility] Urine hemoglobin detection b y automated test stripOrdered By: Janette Dior on 04-04-2022 Hemoglobin Auto test strip Ql (U) 2+ Negative [facility] Urine leukocyte esterase det ection by automated test stripOrdered By: Janette Dior on 04-04-2022 Leukocyte esterase Auto test strip Ql (U) Negative Negative [facility] Urine sediment renal epithel ial cell count by microscopy (number/high power field)Ordered By: Janette Dior on 04-04-2022 Epithelial cells.renal LM.HPF (Urine sed) [#/Area] None seen [HPF] 0-1 [facility] Urobilinogen Auto test strip (U) [Mass/Vol]Ordered By: Janette Dior on 04-04-2022 Urobilinogen (U) [Mass/Vol] Normal mg/dL Normal [facility] pH Auto test strip (U)Ordere d By: Janette Dior on 04-04-2022 pH (U) 6.0 [pH] 5.0-9.0 [facility] HCG,URINEon 04-03-2022 Beta HCG ( test) Ql (U) Negative Normal Negative [facility] Comment on above: Order Comment: poct Performed By: #### H CGU #### [facility] [address] [place] [address] No Panel Informationon 04-03 [facility] Work Phone: Order Reconciliationon 04-03 Order [...] be shared with your follow-up providers (doctor, public health assistant, physical therapist, etc.). Follow Up with Dr. Crocker in [address] or operate motor vehicles for 24 hours and while taking narcotic pain me (more content not included)... Normal [facility] Surgical Pathology Depar tmenton 04-03-2022 [facility] Surgical Pathology Department Name LEANDRA FONSECA Pathologist: REBECCA LAN MD Date of Procedure: 04/03/2022 Date Received: 04/04/2022 Date Reported 04/17/2022 Submitting Physician: SLY CROCKER MD Location: [facility] Surg Other External # FINAL DIAGNOSIS A. LEFT ABDOMINAL WALL ENDOMETRIOMA: --ENDOMETRIOSIS INVOLVING SUBCUTANEOUS FIBROVASCULAR AND ADIPOSE TISSUES. Electronically Signed Out By REBECCA LAN MD/MRG1 By the signature on this report, the individual or group listed as making the Final Interpretation/Diagnosis certifies that they have reviewed this case. [place] [address] Clinical History: Physician Contact Number: [phone] Fixative (A): Formalin Clinical Diagnosis History LEFT [...] fibrous cut surfaces admixed with yellow adipose. Machine Striper sections are submitted in 10 cassettes. Summary of Cassettes: Specimen Label Site A 1-2 medial tip, full-thickness, bisected 3-4 lateral, full-thickness, bisected 5-7 construction sales representative sections of fibrous tissue to closest superior margin 8-10 construction sales representative sections of fibrous tissue to closest inferior margin mjr/04/06/2022 [facility] Department of Pathology [address] [place] [address] Normal [facility] Comment on above: Performed By: #### [facility] #### [facility] Surgical Pathology Department [id number] [facility] [address] Urine Teston 04-03 HCG ( test) Ql (U) Negative Negative [facility] [address] Work Phone: COVID-19 Positive/NegativeOr dered By: Sly Crocker on 03-31-2022 SARS-CoV-2 (COVID-19) N gene HIRAM+probe Ql (Resp) Negative Negative [facility] Comment on above: Testing for SARS-CoV -2 by RT-PCR This test was developed and its performance characteristics determined by [employer] & [employer] and validated at the [facility]. This test has not been FDA [...] (COVID-19) RNA HIRAM+probe Ql (Unsp spec) N/A [facility] Patient Profile - Preop v3on 03-31-2022 Patient Profile - Preop v3 Patient Profile - Preop: Initial Info: Patient DemographicsName: LEANDRA FONSECA Date: 1990 Address: [address] [place] [address] Primary Phone [phone] Instructions Givenappropriate clothing, bring list of medications, bring responsible adult as the local flatbed driver (procedure may be cancelled if no local flatbed driver), insurance information, remove jewerly/piercings How to be AddressedAshley Spoken Language PreferredEnglish Source of Informationpatient Stated Reason for AdmissionLeft abdominal wall tumor resection Primary Contact Name and NumberRena Escalante [phone] Medications Brought to Hospitalno General Health: Weight in kg75.4 kilogram(s) Weight in bhd238.2 pound(s) Weight Methodactual (measured) Scale Typestanding Height [...] child(uriah) Living Arrangementshouse Resource/Environmental Concernsnone [place]ated [facility] [place] [facility] Anticipated at Transitionnone Tobacco Use: Tobacco Useno Pre-op Checklist: Arrival [id number] Arrival Time11:16 Procedure Typeabdominal wall tumor resection NPOyes Last Food [id number] 21:00 Last Clear Fluid [id number] 21:00 ID Band On Patientpatient ID (name), [...] mass: Past Medical History, Active Electronic Signatures: Anan Worthington) (Signed 31-Mar-2022 13:12) Authored: Initial Info, General Health, Health Mgmt, Relationship/Environ, Tobacco Use, Additional Information Aviva Galvez) (Signed 03-Apr-2022 11:57) Authored: General Health, Pre-op Checklist, Additional Information Last Updated: 03-Apr-2022 11:57 by Aviva Galvez) [facility] Office Visit (Oncology Surge ry)on 03-24-2022 Follow-up visit Diagnoses/Problems Assessed Abdominal wall mass (479.30) (R22.2) *Orders Abdominal wall mass CORONAVIRUS 2019 RNA BY PCR, SCREEN ASYMPTOMATIC AMBULATORY; Status:Hold For - Specimen/Data Collection,Retrospective By Protocol Authorization; Requested for:[id number]; Abdominal wall mass (259.30) (R22.2) Patient Discussion/Summary Mrs. Fonseca is a [...] with thyroid problems Social history: Lives in [place] with her boyfriend. She has 2 children [...] Kim Isaac; (more content not included)... Normal [employer] Tobacco Screening.on 022 Fall risk assessment a) No falls within the last year [facility] Work Phone: Tobacco use status CPHS b) No [facility] Work Phone: Automated erythrocytes count in urine sediment (number/area)Ordered By: Jim Vega on 03-15-2022 RBC Auto (Urine sed) [#/Area] 5-9 [HPF] 0-4 [facility] Automated leukocytes count i n urine sediment (number/area)Ordered By: Jim Vega on 03-15-2022 WBC Auto (Urine sed) [#/Area] None seen [HPF] 0-4 [facility] Basophils Auto (Bld) [#/Vol] Ordered By: Jim Vega on 03-15-2022 Basophils (Bld) [#/Vol] 0.1 10*3/uL 0.0-0.2 [facility] Basophils/100 WBC Auto (Bld) Ordered By: Jim Vega on 03-15-2022 Basophils/100 WBC (Bld) 0.7 % . [facility] Bilirubin Test strip Ql (U)O rdered By: Jim Vega on 03-15-2022 Bilirubin Ql (U) Negative Negative [facility] Blood hemoglobin measurement (mass/volume)Ordered By: Jim Vega on 03-15-2022 Hemoglobin (Bld) [Mass/Vol] 9.9 g/dL 11.8-15.4 [facility] Blood leukocytes automated c ount (number/volume)Ordered By: Jim Vega on 03-15-2022 WBC (Bld) [#/Vol] 8.3 10*3/uL 4.5-11.0 [facility] Body fluid albumin measureme nt (mass/volume)Ordered By: Jim Vega on 03-15-2022 Albumin (Body fld) [Mass/Vol] 3.7 g/dL 3.2-5.5 [facility] Color Auto (U)Ordered By: Narinder red Silvia on 03-15-2022 Color (U) Yellow Yellow [facility] Creatinine and Glomerular fi ltration rate.predicted panel (S/P/Bld)Ordered By: Jim Vega on 03-15-2022 Creatinine [Mass/Vol] 0.85 mg/dL 0.44-1.03 [facility] Eosinophils Auto (Bld) [#/Vo l]Ordered By: Jim Vega on 03-15-2022 Eosinophils (Bld) [#/Vol] 0.2 10*3/uL 0.0-0.45 [facility] Eosinophils/100 WBC Auto (Bl d)Ordered By: Jim Vega on 03-15-2022 Eosinophils/100 WBC (Bld) 2.0 % . [facility] Erythrocyte distribution wid th Auto (RBC) [Ratio]Ordered By: Jim Vega on 03-15-2022 Erythrocyte distribution width (RBC) [Ratio] 14.4 % 11.9-15.3 [facility] Estimated glomerular filtrat ion rate (GFR) non- AmericanOrdered By: Jim Vega on 03-15-2022 GFR/1.73 sq M.predicted among non-blacks MDRD (S/P/Bld) [Vol rate/Area] > 60 mL/Min [facility] Globulin Calc (S) [Mass/Vol] Ordered By: Jim Vega on 03-15-2022 Globulin (S) [Mass/Vol] 3.6 g/dL [facility] HCG ( test) IA.rapi d Ql (U)Ordered By: Jim Vega on 03-15-2022 HCG ( test) Ql (U) Negative [facility] Hematocrit Auto (Bld) [Volum e fraction]Ordered By: Jim Vega on 03-15-2022 Hematocrit (Bld) [Volume fraction] 31.8 % 34.0-46.4 [facility] Ketones Auto test strip (U) [Mass/Vol]Ordered By: Jim Vega on 03-15-2022 Ketones (U) [Mass/Vol] Negative Negative [facility] Laboratory - Chemistry and C hemistry - challengeOrdered By: Jim Vega on 03-15-2022 Lipase [Catalytic activity/Vol] 53.0 U/L 22-51 [facility] Natriuretic peptide B (Bld) [Mass/Vol] 13.0 pg/mL 5-100 [facility] Laboratory - Hematology and Cell countsOrdered By: Jim Vega on 03-15-2022 Nucleated RBC/100 WBC (Bld) [Ratio] 0.0 % 0-0.5 [facility] Laboratory - UrinalysisOrder ed By: Jim Vega on 03-15-2022 Hyaline casts LM Ql (Urine sed) None seen [LPF] 0-8 [facility] Lymphocytes Auto (Bld) [#/Vo l]Ordered By: Jim Vega on 03-15-2022 Lymphocytes (Bld) [#/Vol] 1.9 10*3/uL 1.00-4.8 [facility] Lymphocytes/100 WBC Auto (Bl d)Ordered By: Jim Vega on 03-15-2022 Lymphocytes/100 WBC (Bld) 22.9 % . [facility] MCH Auto (RBC) [Entitic mass ]Ordered By: Jim Vega on 03-15-2022 MCH (RBC) [Entitic mass] 22.2 pg 24.7-34.3 [facility] MCHC Auto (RBC) [Mass/Vol]Or dered By: Jim Vega on 03-15-2022 MCHC (RBC) [Mass/Vol] 31.2 g/dL 32.0-35.0 [facility] MCV Auto (RBC) [Entitic vol] Ordered By: Jim Vega on 03-15-2022 MCV (RBC) [Entitic vol] 71.1 fL 80-100 [facility] Monocytes Auto (Bld) [#/Vol] Ordered By: Jim Vega on 03-15-2022 Monocytes (Bld) [#/Vol] 0.6 10*3/uL 0.0-0.8 [facility] Monocytes/100 WBC Auto (Bld) Ordered By: Jim Vega on 03-15-2022 Monocytes/100 WBC (Bld) 6.9 % . [facility] Neutrophils Auto (Bld) [#/Vo l]Ordered By: Jim Vega on 03-15-2022 Neutrophils (Bld) [#/Vol] 5.6 10*3/uL 1.8-7.7 [facility] Neutrophils/100 WBC Auto (Bl d)Ordered By: Jim Vega on 03-15-2022 Neutrophils/100 WBC (Bld) 67.5 % . [facility] Nitrite Test strip Ql (U)Ord ered By: Jim Vega on 03-15-2022 Nitrite Ql (U) Negative Negative [facility] No Panel InformationOrdered By: Jim Vega on 03-15-2022 Estimated GFR () > 60 mL/Min [facility] Comment on above: GFR estimated refere nce range: According to KDOQI guidelines, <60 ml/min/1.73m2 is sufficient to diagnose a patient with chronic kidney disease. Pharmacy Creatinine Clearance (Chem 93.64 [facility] Platelet mean volume Auto (B ld) [Entitic vol]Ordered By: Jim Vega on 03-15-2022 Platelet mean volume (Bld) [Entitic vol] 9.4 fL 6.3-10.7 [facility] Platelets Auto (Bld) [#/Vol] Ordered By: Jim Vega on 03-15-2022 Platelets (Bld) [#/Vol] 254 10*3/uL 150-450 [facility] Protein Auto test strip (U) [Mass/Vol]Ordered By: Jim Vega on 03-15-2022 Protein (U) [Mass/Vol] Negative Negative [facility] Protein [Mass/volume] in Ser um or PlasmaOrdered By: Jim Vega on 03-15-2022 Protein [Mass/Vol] 7.3 g/dL 6.1-7.9 [facility] RBC Auto (Bld) [#/Vol]Ordere d By: Jim Vega on 03-15-2022 RBC (Bld) [#/Vol] 4.47 10*6/uL 3.60-5.00 [facility] Serum or plasma alanine keene otransferase measurement without P-5'-P (enzymatic activiOrdered By: Jim Vega on 03-15-2022 ALT No additional P-5'-P [Catalytic activity/Vol] 14 U/L 10-60 [facility] Serum or plasma albumin/glob ulin mass ratioOrdered By: Jim Vega on 03-15-2022 Albumin/Globulin [Mass ratio] 1.0 {ratio} [facility] Serum or plasma alkaline jared sphatase measurement (enzymatic activity/volume)Ordered By: Jim Vega on 03-15-2022 ALP [Catalytic activity/Vol] 45 U/L 32-92 [facility] Serum or plasma aspartate am inotransferase measurement (enzymatic activity/volume)Ordered By: Jim Vega on 03-15-2022 AST [Catalytic activity/Vol] 17 U/L 10-42 [facility] Serum or plasma calcium marychuy urement (mass/volume)Ordered By: Jim Vega on 03-15-2022 Calcium [Mass/Vol] 9.4 mg/dL 8.2-10.2 [facility] Serum or plasma chloride nemo surement (moles/volume)Ordered By: Jim Vega on 03-15-2022 Chloride [Moles/Vol] 102 mmol/L 95-114 [facility] Serum or plasma glucose marychuy urement (mass/volume)Ordered By: Jim Vega on 03-15-2022 Glucose [Mass/Vol] 85 mg/dL 70-100 [facility] Comment on above: ADA recommended refe rence range Random Glucose Reference Range is dependent on time and content of last meal. Glucose of more than 200 mg/dL in a nonstressed, ambulatory subject supports the diagnosis of Diabetes Mellitus. Serum or plasma potassium me asurement (moles/volume)Ordered By: Jim Vega on 03-15-2022 Potassium [Moles/Vol] 4.2 mmol/L 3.5-5.1 [facility] Serum or plasma sodium measu rement (moles/volume)Ordered By: Jim Vega on 03-15-2022 Sodium [Moles/Vol] 136 mmol/L 136-146 [facility] Serum or plasma total biliru bin measurement (mass/volume)Ordered By: Jim Vega on 03-15-2022 Bilirubin [Mass/Vol] 0.1 mg/dL 0.3-1.2 [facility] Serum or plasma total carbon dioxide measurement (moles/volume)Ordered By: Jim Vega on 03-15-2022 CO2 [Moles/Vol] 26.3 mmol/L 22.0-30.0 [facility] Serum or plasma urea nitroge n measurement (mass/volume)Ordered By: Jim Vega on 03-15-2022 Urea nitrogen [Mass/Vol] 9 mg/dL 9-23 [facility] Specific gravity Auto test s trip (U) [Rel density]Ordered By: Jim Vega on 03-15-2022 Specific gravity (U) [Rel density] 1.010 1.001-1.03 0 [facility] Squamous epithelial cells de tection in urine sediment by light microscopyOrdered By: Jim Vega on 03-15-2022 Epithelial cells.squamous LM Ql (Urine sed) 0-1 [HPF] 0-2 [facility] Troponin I.cardiac [Mass/vol ume] in Serum or Plasma by High sensitivity methodOrdered By: Jim Vega on 03-15-2022 Troponin I.cardiac High sensitivity method [Mass/Vol] 3 pg/mL 0-15 [facility] Urine bacteria detection by automated methodOrdered By: Jim Vega on 03-15-2022 Bacteria Auto Ql (U) None seen None Seen [facility] Urine clarity by refractomet ry automatedOrdered By: Jim Vega on 03-15-2022 Clarity Refractometry automated (U) Clear Clear [facility] Urine glucose measurement by automated test strip (mass/volume)Ordered By: Jim Vega on 03-15-2022 Glucose Auto test strip (U) [Mass/Vol] Normal mg/dL Normal [facility] Urine hemoglobin detection b y automated test stripOrdered By: Jim Vega on 03-15-2022 Hemoglobin Auto test strip Ql (U) Trace Negative [facility] Urine leukocyte esterase det ection by automated test stripOrdered By: Jim Vega on 03-15-2022 Leukocyte esterase Auto test strip Ql (U) Negative Negative [facility] Urobilinogen Auto test strip (U) [Mass/Vol]Ordered By: Jim Vega on 03-15-2022 Urobilinogen (U) [Mass/Vol] Normal mg/dL Normal [facility] pH Auto test strip (U)Ordere d By: Jim Vega on 03-15-2022 pH (U) 7.5 [pH] 5.0-9.0 [facility] US FINE NEEDLE ASP EXPon US FINE NEEDLE ASP EXP Begin Addendu m #1 COLLECTED DATE/TIME: 02/20/2022 13:18 EST Final Diagnosis Report for [facility] [place], [place] (A/B) MASS NEAR SCAR; FINE NEEDLE [...] 2. Pathology results are pending. Normal [facility] US SINGLE QUAD LT LOWERon US [...] KALPESH FOWLER Date: 2022-02-02 09:33 Normal [facility] CT ABD/PELVIS WO CONon 01-11 CT [...] by: JENN GREWAL Date: 2022-01-11 11:40 Normal [facility] [facility] Vital Signs Date Time Vital Sign Value Performing Clinician Facility 08-06-2024 23:53-0500 Diastolic blood pressure 68 mm[Hg] Yudelka Lopez APRN Work Phone: [facility] 08-06-2024 23:53-0500 Heart rate 75 /min Yudelka Lopez APRN Work Phone: [facility] 08-06-2024 23:53-0500 Respiratory rate 22 /min Yudelka Lopez APRN Work Phone: [facility] 08-06-2024 23:53-0500 SaO2% (BldA) [Mass fraction] 100 % Yudelka Lopez APRN Work Phone: [facility] 08-06-2024 23:53-0500 Systolic blood pressure 128 mm[Hg] Yudelka Lopez APRN Work Phone: [facility] 08-06-2024 21:25-0500 Body height 157.48 cm Yudelka Lopez APRN Work Phone: [facility] 08-06-2024 21:25-0500 Body weight 74.3 kg Yudelka Lopez APRN Work Phone: [facility] 07-14-2024 15:03-0400 Diastolic blood pressure 75 mm[Hg] BETTY Lopez Work Phone: [facility] 07-14-2024 15:03-0400 Heart rate 71 /min BETTY Lopez Work Phone: [facility] 07-14-2024 15:03-0400 Respiratory rate 18 /min BETTY Lopez Work Phone: [facility] 07-14-2024 15:03-0400 SaO2% (BldA) [Mass fraction] 99 % BETTY Lopez Work Phone: [facility] 07-14-2024 15:03-0400 Systolic blood pressure 114 mm[Hg] BETTY Lopez Work Phone: [facility] 07-14-2024 12:23-0400 Body height 157.48 cm BETTY Lopez Work Phone: [facility] 07-14-2024 12:17-0400 Body height 157.48 cm BETTY Lopez Work Phone: [facility] 07-14-2024 12:17-0400 Body temperature 98.4 [degF] BETTY Lopez Work Phone: [facility] 07-14-2024 12:17-0400 Body weight 74 kg BETTY Lopez Work Phone: [facility] 07-14-2024 11:43-0400 Body height 157.48 cm [facility] 07-14-2024 11:43-0400 Body mass index (BMI) [Ratio] 29 kg/m2 [facility] 07-14-2024 11:43-0400 Body temperature 98.2 [degF] [facility] 07-14-2024 11:43-0400 Body weight 72.12 kg [facility] 07-14-2024 11:43-0400 Diastolic blood pressure 76 mm[Hg] [facility] 07-14-2024 11:43-0400 Heart rate 97 /min [facility] 07-14-2024 11:43-0400 SaO2% (BldA) [Mass fraction] 99 % [facility] 07-14-2024 11:43-0400 Systolic blood pressure 114 mm[Hg] [facility] 09-28-2023 14:34-0500 Body weight 73.93 kg BELT WORKER Yudelka Lopez Work Phone: [facility] 09-28-2023 14:34-0500 Diastolic blood pressure 79 mm[Hg] BELT WORKER Yudelka Lopez Work Phone: [facility] 09-28-2023 14:34-0500 Heart rate 66 /min BELT WORKER Yudelka Lopez Work Phone: [facility] 09-28-2023 14:34-0500 Respiratory rate 20 /min BELT WORKER Yudelka Lopez Work Phone: [facility] 09-28-2023 14:34-0500 SaO2% (BldA) [Mass fraction] 100 % BELT WORKER Yudelka John Work Phone: [facility] 09-28-2023 14:34-0500 Systolic blood pressure 119 mm[Hg] BELT WORKER Yudelka John Work Phone: [facility] 06-27-2023 10:33-0400 Body height 157.48 cm BELT WORKER Yudelka Lopez Work Phone: [facility] 06-27-2023 10:33-0400 Body temperature 97.7 [degF] BELT WORKER Yudelka John Work Phone: [facility] 06-27-2023 10:33-0400 Body weight 72.52 kg BELT WORKER Yudelka Lopez Work Phone: [facility] 06-27-2023 10:33-0400 Diastolic blood pressure 80 mm[Hg] BELT WORKER Yudelka John Work Phone: [facility] 06-27-2023 10:33-0400 Heart rate 80 /min BELT WORKER Yudelka Lopez Work Phone: [facility] 06-27-2023 10:33-0400 Respiratory rate 20 /min BELT WORKER Yudelka Lopez Work Phone: [facility] 06-27-2023 10:33-0400 SaO2% (BldA) [Mass fraction] 100 % BELT WORKER Yudelka Lopez Work Phone: [facility] 06-27-2023 10:33-0400 Systolic blood pressure 120 mm[Hg] BETTY Lopez Work Phone: [facility] 06-04-2023 18:15-0400 Body height 157.48 cm Marvin Fontenot Other [employer] Other 06-04-2023 18:15-0400 Body mass index (BMI) [Ratio] 30.36 kg/m2 Marvin Fontenot Other [employer] Other 06-04-2023 18:15-0400 Body temperature 98.5 [degF] Marvin Fontenot Other [employer] Other 06-04-2023 18:15-0400 Body weight 75.3 kg Marvin Fontenot Other [employer] Other 06-04-2023 18:15-0400 Respiratory rate 20 /min Marvin Fontenot Other [employer] Other 06-04-2023 18:15-0400 SaO2% (BldA) [Mass fraction] 98 % Marvin Fontenot Other [employer] Other 03-21-2023 15:04-0400 Body weight 73.16 kg BETTY Lopez Work Phone: [facility] 03-21-2023 15:04-0400 Diastolic blood pressure 74 mm[Hg] BELT WORKERFamilia Lopez Work Phone: [facility] 03-21-2023 15:04-0400 Heart rate 109 /min BELT WORKERFamilia Lopez Work Phone: [facility] 03-21-2023 15:04-0400 Respiratory rate 20 /min BETTY Lopez Work Phone: [facility] 03-21-2023 15:04-0400 SaO2% (BldA) [Mass fraction] 99 % BELT WORKER Yudelka Lopez Work Phone: [facility] 03-21-2023 15:04-0400 Systolic blood pressure 134 mm[Hg] BELT WORKER Yudelka Lopez Work Phone: [facility] 02-07-2023 10:42-0400 Diastolic blood pressure 70 mm[Hg] BELT WORKER Yudelka Lopez Work Phone: [facility] 02-07-2023 10:42-0400 Heart rate 82 /min BELT WORKER Yudelka John Work Phone: [facility] 02-07-2023 10:42-0400 Respiratory rate 18 /min BELT WORKER Yudelka John Work Phone: [facility] 02-07-2023 10:42-0400 SaO2% (BldA) [Mass fraction] 97 % BELT WORKER Yudelka Lopez Work Phone: [facility] 02-07-2023 10:42-0400 Systolic blood pressure 118 mm[Hg] BELT WORKER Yudelka Lopez Work Phone: [facility] 02-07-2023 08:15-0400 Body temperature 98 [degF] BELT WORKER Yudelka Lopez Work Phone: [facility] 02-06-2023 10:57-0400 Diastolic blood pressure 54 mm[Hg] BELT WORKER Yudelka Lopez Work Phone: [facility] 02-06-2023 10:57-0400 Heart rate 66 /min BELT WORKER Yudelka John Work Phone: [facility] 02-06-2023 10:57-0400 Respiratory rate 18 /min BELT WORKER Yudelka John Work Phone: [facility] 02-06-2023 10:57-0400 SaO2% (BldA) [Mass fraction] 99 % BELT WORKER Yudelka Lopez Work Phone: [facility] 02-06-2023 10:57-0400 Systolic blood pressure 113 mm[Hg] BETTY Lopez Work Phone: [facility] 02-06-2023 09:14-0400 Body height 160.02 cm BETTY Lopez Work Phone: [facility] 02-06-2023 09:14-0400 Body temperature 98.1 [degF] BETTY Lopez Work Phone: [facility] 02-06-2023 09:14-0400 Body weight 73 kg BETTY Lopez Work Phone: [facility] 01-25-2023 12:38-0400 Diastolic blood pressure 74 mm[Hg] BETTY Lopez Work Phone: [facility] 01-25-2023 12:38-0400 Heart rate 72 /min BETTY Lopez Work Phone: [facility] 01-25-2023 12:38-0400 Respiratory rate 18 /min BETTY Lopez Work Phone: [facility] 01-25-2023 12:38-0400 SaO2% (BldA) [Mass fraction] 100 % BETTY Lopez Work Phone: [facility] 01-25-2023 12:38-0400 Systolic blood pressure 101 mm[Hg] BETTY Lopez Work Phone: [facility] 01-25-2023 08:19-0400 Body temperature 98.3 [degF] BETTY Lopez Work Phone: [facility] 01-02-2023 10:31-0400 Body weight 75.2 kg BETTY Lopez Work Phone: [facility] 12-21-2022 10:00-0400 Body height 157.48 cm Imad Asacatina Other [facility] [employer] Other 12-21-2022 10:00-0400 Body mass index (BMI) [Ratio] 30.36 kg/m2 Imad Asaad Other [facility] [employer] Other 12-21-2022 10:00-0400 Body weight 75.3 kg Imad Asaad Other [facility] [employer] Other 12-21-2022 10:00-0400 Diastolic blood pressure 68 mm[Hg] Imad Asaad Other [facility] [employer] Other 12-21-2022 10:00-0400 Systolic blood pressure 115 mm[Hg] Imad Asaad Other [facility] [employer] Other 11-28-2022 20:38-0400 Body height 157.48 cm BELT WORKERFamilia Lopez Work Phone: [facility] 11-28-2022 20:38-0400 Body temperature 97.9 [degF] BELT WORKER Yudelka Lopez Work Phone: [facility] 11-28-2022 20:38-0400 Body weight 75.2 kg BELT WORKER Yudelka Lopez Work Phone: [facility] 11-28-2022 20:38-0400 Diastolic blood pressure 72 mm[Hg] BELT WORKER Yudelka Lopez Work Phone: [facility] 11-28-2022 20:38-0400 Heart rate 78 /min BELT WORKER Yudelka Lopez Work Phone: [facility] 11-28-2022 20:38-0400 Respiratory rate 18 /min BELT WORKER Yudelka Lopez Work Phone: [facility] 11-28-2022 20:38-0400 SaO2% (BldA) [Mass fraction] 100 % BELT WORKER Yudelka Lopez Work Phone: [facility] 11-28-2022 20:38-0400 Systolic blood pressure 140 mm[Hg] BELT WORKER Yudelka Lopez Work Phone: [facility] 11-01-2022 12:30-0500 Diastolic blood pressure 66 mm[Hg] BELT WORKER Yudelka Lopez Work Phone: [facility] 11-01-2022 12:30-0500 Heart rate 60 /min BELT WORKER Yudelka Lopez Work Phone: [facility] 11-01-2022 12:30-0500 Respiratory rate 18 /min BELT WORKER Yudelka Lopez Work Phone: [facility] 11-01-2022 12:30-0500 SaO2% (BldA) [Mass fraction] 100 % BELT WORKER Yudelka Lopez Work Phone: [facility] 11-01-2022 12:30-0500 Systolic blood pressure 108 mm[Hg] BELT WORKER Yudelka Lopez Work Phone: [facility] 11-01-2022 10:17-0500 Body temperature 98.9 [degF] BELT WORKER Yudelka Lopez Work Phone: [facility] 10-10-2022 15:05-0500 Diastolic blood pressure 62 mm[Hg] BELT WORKER Yudelka Lopez Work Phone: [facility] 10-10-2022 15:05-0500 Heart rate 68 /min BELT WORKER Yudelka Lopez Work Phone: [facility] 10-10-2022 15:05-0500 Respiratory rate 16 /min BELT WORKER Yudelka Lopez Work Phone: [facility] 10-10-2022 15:05-0500 Systolic blood pressure 111 mm[Hg] BELT WORKER Yudelka Lopez Work Phone: [facility] 10-10-2022 13:05-0500 Body temperature 98.3 [degF] BELT WORKER Yudelka Lopez Work Phone: [facility] 10-10-2022 13:05-0500 SaO2% (BldA) [Mass fraction] 100 % BELT WORKER Yudelka Lopez Work Phone: [facility] 10-03-2022 10:46-0500 Body weight 72.41 kg BELT WORKER Yudelka Lopez Work Phone: [facility] 10-03-2022 10:33-0500 Body height 157.48 cm BELT WORKER Yudelka Lopez Work Phone: [facility] 09-21-2022 14:02-0500 Diastolic blood pressure 54 mm[Hg] BELT WORKER Yudelka Lopez Work Phone: [facility] 09-21-2022 14:02-0500 Heart rate 72 /min BELT WORKER Yudelka Lopez Work Phone: [facility] 09-21-2022 14:02-0500 Respiratory rate 18 /min BELT WORKER Yudelka Lopez Work Phone: [facility] 09-21-2022 14:02-0500 SaO2% (BldA) [Mass fraction] 100 % BELT WORKER Yudelka Lopez Work Phone: [facility] 09-21-2022 14:02-0500 Systolic blood pressure 105 mm[Hg] BELT WORKER Yudelka Lopez Work Phone: [facility] 09-21-2022 12:05-0500 Body height 157.48 cm BELT WORKER Yudelka Lopez Work Phone: [facility] 09-21-2022 12:05-0500 Body temperature 98.2 [degF] BELT WORKER Yudelka Lopez Work Phone: [facility] 09-21-2022 12:05-0500 Body weight 71.6 kg BELT WORKER Yudelka Lopez Work Phone: [facility] 07-04-2022 20:47-0400 Body temperature 98.2 [degF] BELT WORKER Yudelka Lopez Work Phone: [facility] 07-04-2022 20:47-0400 Diastolic blood pressure 72 mm[Hg] BELT WORKER Yudelka Lopez Work Phone: [facility] 07-04-2022 20:47-0400 Heart rate 83 /min BELT WORKER Yudelka Lopez Work Phone: [facility] 07-04-2022 20:47-0400 Respiratory rate 18 /min BELT WORKER Yudelka Lopez Work Phone: [facility] 07-04-2022 20:47-0400 SaO2% (BldA) [Mass fraction] 99 % BELT WORKER Yudelka Lopez Work Phone: [facility] 07-04-2022 20:47-0400 Systolic blood pressure 119 mm[Hg] BELT WORKER Yudelka Lopez Work Phone: [facility] 07-04-2022 18:45-0400 Body height 160.02 cm BELT WORKER Yudelka Lopez Work Phone: [facility] 07-04-2022 18:45-0400 Body weight 73.6 kg BELT WORKER Yudelka Lopez Work Phone: [facility] 06-01-2022 02:30-0400 Diastolic blood pressure 85 mm[Hg] BELT WORKER Yudelka Lopez Work Phone: [facility] 06-01-2022 02:30-0400 Heart rate 71 /min BELT WORKER Yudelka Lopez Work Phone: [facility] 06-01-2022 02:30-0400 Respiratory rate 16 /min BELT WORKER Yudelka Lopez Work Phone: [facility] 06-01-2022 02:30-0400 SaO2% (BldA) [Mass fraction] 100 % BELT WORKER Yudelka Lopez Work Phone: [facility] 06-01-2022 02:30-0400 Systolic blood pressure 111 mm[Hg] BELT WORKER Yudelka Lopez Work Phone: [facility] 06-01-2022 01:29-0400 Body height 160.02 cm BELT WORKER Yudelka Lopez Work Phone: [facility] 06-01-2022 01:29-0400 Body temperature 98 [degF] BELT WORKER Yudelka Lopez Work Phone: [facility] 06-01-2022 01:29-0400 Body weight 73.48 kg BELT WORKER Yudelka Lopez Work Phone: [facility] 04-07-2022 12:02-0400 Body height 157.81 cm Yudelka Lopez Work Phone: [facility] Work Phone: 04-07-2022 12:02-0400 Body mass index (BMI) [Ratio] 30.42 kg/m2 Yudelka Sonia Lopez Work Phone: [facility] Work Phone: 04-07-2022 12:02-0400 Body surface area Derived from formula 1.77 m2 Yudelka Sonia Lopez Work Phone: [facility] Work Phone: 04-07-2022 12:02-0400 Body temperature 97.7 [degF] Yudelka Sonia Lopez Work Phone: [facility] Work Phone: 04-07-2022 12:02-0400 Body weight 75.75 kg Yudelka Scott John Work Phone: [facility] Work Phone: 04-07-2022 12:02-0400 Diastolic blood pressure 66 mm[Hg] Yudelka Scott Lopez Work Phone: [facility] Work Phone: 04-07-2022 12:02-0400 Heart rate 73 /min Yudelka cSott Lopez Work Phone: [facility] Work Phone: 04-07-2022 12:02-0400 Respiratory rate 16 /min Yudelka Scott Lopez Work Phone: [facility] Work Phone: 04-07-2022 12:02-0400 SaO2% (BldA) [Mass fraction] 100 % Yudelka Scott Lopez Work Phone: [facility] Work Phone: 04-07-2022 12:02-0400 Systolic blood pressure 137 mm[Hg] Yudelka Lopez Work Phone: [facility] Work Phone: 04-07-2022 12:02-0400 0 1 Yudelka Lopez Work Phone: [facility] Work Phone: Comment on above: [employer] 04-05-2022 00:01-0400 Diastolic blood pressure 63 mm[Hg] BELT WORKERFamilia Lopez Work Phone: [facility] 04-05-2022 00:01-0400 Heart rate 59 /min BELT WORKERFamilai Lopez Work Phone: [facility] 04-05-2022 00:01-0400 Respiratory rate 20 /min BELT WORKERFamilia Lopez Work Phone: [facility] 04-05-2022 00:01-0400 SaO2% (BldA) [Mass fraction] 100 % BELT WORKERFamilia Lopez Work Phone: [facility] 04-05-2022 00:01-0400 Systolic blood pressure 117 mm[Hg] BETTY Lopez Work Phone: [facility] 04-04-2022 17:01-0400 Body height 157.48 cm BETTY Lopez Work Phone: [facility] 04-04-2022 17:01-0400 Body mass index (BMI) [Ratio] 30.4 kg/m2 BELT WORKERFamilia Lopez Work Phone: [facility] 04-04-2022 17:01-0400 Body temperature 98.7 [degF] BELT WORKERFamilia Lopez Work Phone: [facility] 04-04-2022 17:01-0400 Body weight 75.6 kg BETTY Lopez Work Phone: [facility] 03-24-2022 11:38-0400 Body height 157.81 cm Unknown Unknown VD-Nmthublsw-Eto dman Work Phone: 03-24-2022 11:38-0400 Body mass index (BMI) [Ratio] 30.08 kg/m2 Unknown Unknown KQ-Ibxzcynvz-Pkeqsix Work Phone: 03-24-2022 11:38-0400 Body surface area Derived from formula 1.76 m2 Unknown Unknown TF-Lnlhdotsw-Wldppxt Work Phone: 03-24-2022 11:38-0400 Body temperature 98.24 [degF] Unknown Unknown FD-Rtenmpcbj-Up idman Work Phone: 03-24-2022 11:38-0400 Body weight 74.9 kg Unknown Unknown WF-Olztadxxr-Fba dman Work Phone: 03-24-2022 11:38-0400 Diastolic blood pressure 78 mm[Hg] Unknown Unknown YX-Kusovasmf-Bmwlvjw Work Phone: 03-24-2022 11:38-0400 Heart rate 82 /min Unknown Unknown HO-Mpyfbzpwb-Kgh dman Work Phone: 03-24-2022 11:38-0400 Respiratory rate 16 /min Unknown Unknown XB-Hnzcdxexl-Kj idman Work Phone: 03-24-2022 11:38-0400 SaO2% (BldA) [Mass fraction] 100 % Unknown Unknown DD-Yxwemzwgh-Fhizbiw Work Phone: 03-24-2022 11:38-0400 Systolic blood pressure 130 mm[Hg] Unknown Unknown RG-Nphqmsqkr-Kapyrik Work Phone: 03-24-2022 11:38-0400 6 1 Unknown Unknown QY-Jxaehouhk-Xov dman Work Phone: Comment on above: [employer] 03-15-2022 21:05-0400 Diastolic blood pressure 67 mm[Hg] BETTY Lopez Work Phone: [facility] 03-15-2022 21:05-0400 Heart rate 72 /min BETTY Lopez Work Phone: [facility] 03-15-2022 21:05-0400 Respiratory rate 18 /min BELT WORKERFamilia Lopez Work Phone: [facility] 03-15-2022 21:05-0400 SaO2% (BldA) [Mass fraction] 100 % BELT WORKERFamilia Lopez Work Phone: [facility] 03-15-2022 21:05-0400 Systolic blood pressure 127 mm[Hg] BELT WORKER Yudelka Lopez Work Phone: [facility] 03-15-2022 19:22-0400 Body height 157.48 cm BELT WORKERFamilia Lopez Work Phone: [facility] 03-15-2022 19:22-0400 Body mass index (BMI) [Ratio] 30.9 kg/m2 BELT WORKERFamilia Lopez Work Phone: [facility] 03-15-2022 19:22-0400 Body temperature 98.6 [degF] BELT WORKERFamilia Lopez Work Phone: [facility] 03-15-2022 19:22-0400 Body weight 76.7 kg BELT WORKERFamilia Lopez Work Phone: [facility] 03-04-2022 01:04-0400 Body height 157.48 cm BETTY Lopez Work Phone: [facility] 03-04-2022 01:04-0400 Body mass index (BMI) [Ratio] 30.4 kg/m2 BELT WORKERFamilia Lopez Work Phone: [facility] 03-04-2022 01:04-0400 Body weight 75.55 kg BETTY Lopez Work Phone: [facility] 03-04-2022 01:01-0400 Body temperature 98.1 [degF] BELT WORKER Yudelka Lopez Work Phone: [facility] 03-04-2022 01:01-0400 Diastolic blood pressure 80 mm[Hg] BELT WORKER Yudelka Lopez Work Phone: [facility] 03-04-2022 01:01-0400 Heart rate 81 /min BELT WORKER Yudelka Lopez Work Phone: [facility] 03-04-2022 01:01-0400 Respiratory rate 18 /min BETTY Lopez Work Phone: [facility] 03-04-2022 01:01-0400 SaO2% (BldA) [Mass fraction] 97 % BETTY Lopez Work Phone: [facility] 03-04-2022 01:01-0400 Systolic blood pressure 129 mm[Hg] BETTY Lopez Work Phone: [facility] Encounters Encounter Date Encounter Type Care Provider Facility Start: 09-11-2024 End: 09-11-2024 Bamboo flowsheet Malcolm Helder DO Work Phone: [facility] Start: 09-11-2024 End: 09-11-2024 Bamboo flowsheet Malcolm Helder DO Work Phone: [facility] Start: 08-26-2024 End: 08-26-2024 Office outpatient visit 5 minutes [facility] Helder Nurse [facility] Comment on above: GA: 8w2d Start: 08-26-2024 End: 08-26-2024 ambulatory MALCOLM HELDER Not Available Start: 08-06-2024 End: 08-08-2024 Evaluation and management of inpatient Yudelka Lopez APRN Work Phone: [address] Work Phone: Start: 08-06-2024 ambulatory Julián Driss Facility:[facility] Start: 08-04-2024 End: 08-04-2024 Clinisync Result Encounter Malcolm Helder DO Work Phone: [facility] Unsolicited Start: 08-04-2024 End: 08-04-2024 Clinisync Result Encounter Malcolm Helder DO Work Phone: [facility] Unsolicited Start: 08-02-2024 End: 08-02-2024 Clinisync Result Encounter Malcolm Helder DO Work Phone: [facility] Unsolicited Start: 08-02-2024 End: 08-02-2024 Clinisync Result Encounter Malcolm Koenigo DO Work Phone: [facility] Unsolicited Start: 07-14-2024 End: 07-14-2024 Emergency department patient visit BETTY Lopez Work Phone: [facility] Work Phone: Start: 07-14-2024 End: 07-14-2024 ambulatory [facility] Work Phone: Start: 07-14-2024 End: 07-14-2024 Patient encounter procedure [facility] Work Phone: Start: 02-21-2024 End: 02-21-2024 Emergency department patient visit [facility] Start: 02-21-2024 Encounter for gynecological examination (general) (routine) without abnormal findings [facility] Start: 02-19-2024 End: 02-19-2024 ambulatory MALCOLM HELDER Not Available Start: 01-10-2024 End: 01-10-2024 ambulatory MALCOLM HELDER Not Available Start: 12-10-2023 End: 12-11-2023 ambulatory Malagon Talgopal Natarajani Facility:[facility] Start: 12-10-2023 End: 12-10-2023 Patient encounter procedure Manas Rankinminruchi [facility] Start: 11-27-2023 End: 11-27-2023 ambulatory MALCOLM HELDER Not Available Start: 11-24-2023 End: 11-24-2023 Emergency department patient visit Jim Vega Facility:[facility] Start: 11-13-2023 End: 11-13-2023 Emergency department patient visit Frank Silva Facility:[facility] Start: 09-28-2023 End: 09-28-2023 ambulatory BETTY Lopez Work Phone: [facility] Work Phone: Start: 09-28-2023 End: 09-28-2023 Registered Recurring BETTY Lopez Work Phone: [facility] Work Phone: Start: 09-27-2023 End: 09-27-2023 ambulatory BETTY Lopez Work Phone: [facility] Work Phone: Start: 09-27-2023 End: 09-27-2023 Departed Referred BETTY Lopez [facility] Start: 09-27-2023 Registered Recurring BETTY east John Work Phone: [facility] Work Phone: Start: 06-27-2023 End: 06-27-2023 ambulatory BETTY Lopez Work Phone: [facility] Work Phone: Start: 06-27-2023 End: 06-27-2023 Registered Recurring BETTY Lopez Work Phone: [facility] Work Phone: Start: 06-14-2023 Registered Recurring BETTY east Lopez Work Phone: [facility] Work Phone: Start: 06-14-2023 End: 06-14-2023 ambulatory BETTY Lopez Work Phone: [facility] Work Phone: Start: 06-14-2023 End: 06-14-2023 Patient encounter procedure BETTY Lopez Work Phone: [facility] [place] Work Phone: Start: 06-04-2023 End: 06-04-2023 ambulatory Marvin Fontenot Other [facility] [employer] Other Start: 06-04-2023 Office outpatient visit 15 minutes Marvin Fontenot [facility] [address] Start: 04-24-2023 End: 04-25-2023 ambulatory Kelly Hough Facility:[facility] Start: 04-24-2023 End: 04-24-2023 Patient encounter procedure Lex Elizabeth [facility] [place] Start: 04-03-2023 ambulatory Lex Elizabeth Facilit y:[facility] Start: 03-21-2023 End: 03-21-2023 ambulatory BELT WORKERFamilia Lopez Work Phone: [facility] Work Phone: Start: 03-21-2023 End: 03-21-2023 Registered Recurring BETTY Lopez Work Phone: [facility] Work Phone: Start: 03-14-2023 End: 03-14-2023 ambulatory BETTY Lopez Work Phone: [facility] Work Phone: Start: 03-14-2023 End: 03-14-2023 Patient encounter procedure BETTY Lopez Work Phone: [facility] [place] Work Phone: Start: 02-07-2023 Registered Recurring BETTY Lopez Work Phone: [facility] Work Phone: Start: 02-06-2023 End: 02-06-2023 Emergency department patient visit BETTY Lopez Work Phone: [facility] Work Phone: Start: 01-29-2023 End: 01-29-2023 ambulatory BELT WORKER Yudelka Lopez Work Phone: [facility] Work Phone: Start: 01-29-2023 End: 01-29-2023 Patient encounter procedure BELT WORKER Yudelka Lopez Work Phone: [facility]-Nuc Med [address] [place] Work Phone: Start: 01-25-2023 Registered Recurring BELT WORKER Howard rowan John Work Phone: [facility]-Cancer Center Work Phone: Start: 01-24-2023 End: 01-24-2023 ambulatory BELT WORKER Yudelka Paulino John Work Phone: [facility] Work Phone: Start: 01-24-2023 End: 01-24-2023 Discharged Recurring BETTY Lopez Work Phone: [facility]-Physical Therapy [address] Start: 12-25-2022 End: 12-25-2022 ambulatory BELT WORKER Yudelka Lopez Work Phone: [facility] Work Phone: Start: 12-25-2022 End: 12-25-2022 Patient encounter procedure BETTY Lopez Work Phone: [facility]-Lab [address] [place] Work Phone: Start: 12-25-2022 Registered Recurring BELT WORKERFamilia Lawrence rowan John Work Phone: [facility]-Physical Therapy [address] Start: 12-22-2022 End: 12-22-2022 ambulatory Imad Asaad Other [employer] Other Start: 12-22-2022 Telephone encounter Imad Asaad [facility] Start: 12-21-2022 End: 12-21-2022 ambulatory Imad Asaad Other [employer] Other Start: 12-21-2022 FQHC visit new patient Imad Asaad [facility] Start: 12-07-2022 End: 12-07-[address] DOCTOR MARI Facility:[facility]1 Start: 11-29-2022 End: 11-30-[address] MALCOLM PENDLETON . Facility:[facility]1 Start: 11-28-2022 End: 11-28-2022 Emergency department patient visit BELT WORKERFamilia Lopez Work Phone: [facility]-Emergency Room Work Phone: Start: 11-01-2022 Registered Recurring BELT WORKER Howard east Lopez Work Phone: [facility] Work Phone: Start: 10-12-2022 End: 10-12-2022 ambulatory BELT WORKER Yudelka Lopez Work Phone: [facility] Work Phone: Start: 10-12-2022 End: 10-12-2022 Patient encounter procedure BELT WORKERFamilia Lopez Work Phone: [facility] [address] [place] Work Phone: Start: 10-10-2022 Registered Recurring BELT WORKER Howard Lopez Work Phone: [facility]Cancer Center Work Phone: Start: 10-02-2022 End: 10-02-2022 ambulatory BELT WORKERFamilia Lopez Work Phone: [facility] Work Phone: Start: 10-02-2022 End: 10-02-2022 Patient encounter procedure BETTY Lopez Work Phone: [facility]-Ultrasound [address] [place] Work Phone: Start: 09-21-2022 End: 09-21-2022 Emergency department patient visit BELT WORKERFamilia Lopez Work Phone: [facility]-Emergency Room Work Phone: Start: 09-15-2022 End: 09-15-2022 ambulatory BELT WORKER Yudelka Lopez Work Phone: [facility] Work Phone: Start: 09-15-2022 End: 09-15-2022 Patient encounter procedure BELT WORKER Yudelka Lopez Work Phone: [facility] [address] [place] Work Phone: Start: 08-05-2022 End: 08-06-[address] MALCOLM PENDLETON . Facility:[facility]1 Start: 07-28-2022 End: 07-29-[address] MALCOLM PENDLETON . Facility:[facility]1 Start: 07-04-2022 End: 07-04-2022 Emergency department patient visit BELT WORKER Yudelka Lopez Work Phone: [facility]-Emergency Room Start: 07-03-2022 End: 07-03-[address] MALCOLM PENDLETON . Facility:[facility]1 Start: 06-01-2022 End: 06-01-2022 Emergency department patient visit BELT WORKER Yudelka Lopez Work Phone: [facility]-Emergency Room Start: 04-21-2022 Patient encounter procedure Yudelka Scott Lopez Work Phone: [facility] Work Phone: Start: 04-21-2022 Postop follow up vis it related to original px Yudelka Lopez Work Phone: [facility] Work Phone: Start: 04-18-2022 End: 04-19-[address] DOCTOR MARI Facility:[facility]1 Start: 04-17-2022 Chart Update Yudelka Lopez Work Phone: [facility] Work Phone: Start: 04-14-2022 End: 04-14-2022 Departed Referred BETTY Yudelka Lopez Work Phone: [facility] Start: 04-11-2022 End: 04-11-[address] REBECCA GALVEZ Facility:[facility]1 Start: 04-07-2022 Postop follow up vis it related to original px Yudelka Lopez Work Phone: [facility] Work Phone: Start: 04-04-2022 End: 04-05-2022 Emergency department patient visit BETTY Lopez Work Phone: [facility]-Emergency Room Start: 04-04-2022 AUDIT Yudelka Lopez Work Phone: [facility] Work Phone: Start: 03-31-2022 End: 03-31-2022 Patient encounter procedure BETTY Lopez Work Phone: [facility] COVID Testing Start: 03-24-2022 Patient encounter procedure Unknown Unknown [facility]-Qyuisvsrl-Jurkz[facility] Work Phone: Start: 03-15-2022 End: 03-15-2022 Emergency department patient visit BETTY Lopez Work Phone: [facility]-Emergency Room Start: 03-04-2022 End: 03-04-2022 Emergency department patient visit BETTY Lopez Work Phone: [facility]-Emergency Room Start: 02-20-2022 End: 02-20-[address] ALFIE MATTHEWS Facility:[facility]1 Start: 02-02-2022 End: 02-03-[address] ALFIE MATTHEWS Facility:[facility]1 Start: 01-11-2022 End: 01-12-[address] ALFIE MATTHEWS Facility:[facility]1 Procedures Date Procedure Procedure Detail Performing Clinician Start: 08-26-2024 End: 08-26-2024 Urnls dip stick/tablet rgnt non-auto w/o micrscp Malcolm Helder DO Work Phone: Start: 08-04-2024 [facility] PREG QUANT HCG Malcolm Helder DO Work Phone: Start: 08-02-2024 [facility] PREG QUANT HCG Malcolm Helder DO Work Phone: Start: 07-14-2024 SARS-CoV-2, Influenza & RSV (PCR) BETTY Lopez Work Phone: Start: 07-14-2024 Viral nucleic acid assay Yudelka Lopez AP RN Work Phone: Start: 07-14-2024 Computed tomography of abdomen and pelvis with contrast BELT WORKERFamilia Lopez Work Phone: Start: 03-14-2023 MRI of cervical spine without contrast BETTY Lopez Work Phone: Start: 01-29-2023 Radionuclide gastric emptying study BELT WORKERFamilia Lopez Work Phone: Start: 11-28-2022 X-ray of left foot BELT WORKERFamilia Lopez Work Phone: Start: 10-02-2022 US scan of thyroid BELT WORKERFamilia Lopez Work Phone: Start: 10-02-2022 X-ray of cervical spine BETTY christina Work Phone: Start: 09-21-2022 SARS-CoV-2, Influenza & RSV (PCR) BELT WORKER Rowan Lopez Work Phone: Start: 09-21-2022 Plain chest X-ray BETTY Lopez Work Phone: Start: 09-15-2022 Plain chest X-ray BETTY Lopez Work Phone: Start: 07-04-2022 Computed tomography of abdomen and pelvis with contrast BETTY Lopez Work Phone: Start: 04-04-2022 CT angiography of thorax BETTY begum Work Phone: Start: 04-04-2022 Plain chest X-ray BETTY Lopez Work Phone: Start: 03-15-2022 Plain chest X-ray BELT WORKERFamilia Lopez Work Phone: Start: 02-12-2020 Colonoscopy Lex Elizabeth Comment on above: Poor prep Start: 02-12-2020 Esophagogastroduodenoscopy Lex Elizabeth Start: 09-03-2019 section Lex Elizabeth section Lex christina None (qualifier value) Lex Elizabeth Plan of Treatment Date Care Activity Detail Author Start: 09-11-2024 End: 09-11-2024 Patient encounter procedure [facility] Comment on above: Arrived Start: 08-26-2024 End: 08-26-2025 ABO/Rh ABO/Rh Lab Routine Missed menses , unspecified gestational age Expected: 08/26/2024 (Approximate), Expires: 08/26/2025 [facility] Comment on above: Expected: 08/26/2024 (Approximate), Expires: 08/26/2025 Start: 08-26-2024 End: 08-26-2025 Blood type and Indirect antibody screen panel - Blood Type and screen Lab Routine Missed menses , unspecified gestational age Expected: 08/26/2024 (Approximate), Expires: 08/26/2025 [facility] Work Phone: Comment on above: Expected: 08/26/2024 (Approximate), Expires: 08/26/2025 Start: 08-26-2024 End: 08-26-2025 Drugs of abuse panel - Urine by Screen method Rapid drug screen, urine Lab Routine , unspecified gestational age Encounter for supervision of normal first in first trimester Expected: 08/26/2024 (Approximate), Expires: 08/26/2025 [facility] Comment on above: Expected: 08/26/2024 (Approximate), Expires: 08/26/2025 Start: 08-26-2024 End: 08-26-2025 US Pelvis transvaginal US OB transvaginal Imaging Routine Missed menses Expected: 08/26/2024 (Approximate), Expires: 08/26/2025 [facility] Comment on above: Expected: 08/26/2024 (Approximate), Expires: 08/26/2025 Start: 08-26-2024 End: 08-26-2024 ambulatory 08/26/2024 9:30 AM EST Initial [facility] [address] [place] [address] [facility] Start: 08-26-2024 End: 08-26-2024 Professional / ancillary services management 08/26/2024 9:00 AM EST Ancillary Procedure [facility] [address] [place] [address] [facility] Start: 08-07-2024 Hospital admission [facility] Start: 08-07-2024 [facility] Start: 08-07-2023 [facility] Start: 07-24-2023 [facility] Start: 02-07-2023 [facility] Start: 01-31-2023 [facility] Start: 01-26-2023 End: 01-26-2023 [facility] Start: 01-24-2023 End: 01-25-2023 [facility] Start: 11-28-2022 X-ray of left foot XR foot LT min 3V * [facility] Start: 11-28-2022 XR Foot - left GE 3 Views [facility] Start: 11-01-2022 [facility] Start: 10-24-2022 End: 10-25-2022 [facility] Start: 10-17-2022 [facility] Start: 10-13-2022 [facility] Start: 10-12-2022 End: 10-13-2022 [facility] Start: 10-10-2022 [facility] Start: 04-21-2022 POV, Provider: Sly Crocker, Status: Pen, Time: 10:30 AM POV, Provider: Sly Crocker, Status: Pen, Time: 10:30 AM [facility] Work Phone: Albumin [Mass/volume ] in Serum or Plasma [facility] Albumin/Globulin ratio [facility] Bacteria identified in Urine by Culture Urine culture Microbiology Routine Missed menses Ordered: 08/26/2024 [facility] Comment on above: Ordered: 08/26/2024 Calprotectin [Mass/m ass] in Stool [facility] CBC W Auto Different ial panel - Blood CBC and differential Lab Routine Missed menses , unspecified gestational age Ordered: 08/26/2024 [facility] Comment on above: Ordered: 08/26/2024 Comprehensive metabo lic 1999 panel - Serum or Plasma [facility] Comprehensive metabo lic 1999 panel - Serum or Plasma [facility] Comprehensive metabo lic 1999 panel - Serum or Plasma [facility] Comprehensive metabo lic 1999 panel - Serum or Plasma [facility] Copper measurement [facility] Electrophoresis: [id number] [facility] Electrophoresis: [id number] [facility] Electrophoresis: beta-globulin [facility] Electrophoresis: manohar ma globulin [facility] Endomysial antibody IgA level [facility] Erythrocyte sediment ation rate by Photometric method [facility] Erythropoietin (EPO) [Units/volume] in Serum or Plasma [facility] Ferritin [Mass/volum e] in Serum or Plasma [facility] Gliadin peptide IgA Ab [Units/volume] in Serum [facility] Gliadin peptide IgG Ab [Units/volume] in Serum [facility] Globulin [Mass/volum e] in Serum [facility] Hemoglobin A1c/Hemoglobin.total in Blood Hemoglobin A1c Lab Routine Missed menses , unspecified gestational age Ordered: 08/26/2024 [facility] Comment on above: Ordered: 08/26/2024 Hepatitis B virus gallagher rface Ag [Presence] in Serum or Plasma by Immunoassay Hepatitis B surface antigen Lab Routine Missed menses , unspecified gestational age Ordered: 08/26/2024 [facility] Comment on above: Ordered: 08/26/2024 Hepatitis C virus Ab [Presence] in Serum or Plasma by Immunoassay Hepatitis C antibody Lab Routine Missed menses , unspecified gestational age Ordered: 08/26/2024 [facility] Comment on above: Ordered: 08/26/2024 HIV 1+2 Ab+HIV1 p24 Ag [Presence] in Serum or Plasma by Immunoassay [facility] HIV-1/HIV-2 antigen/antibody combination immunoassay HIV-1 and HIV-2 antibodies Lab Routine Missed menses , unspecified gestational age Ordered: 08/26/2024 [facility] Comment on above: Ordered: 08/26/2024 IgA [Mass/volume] in Serum or Plasma [facility] IgA [Mass/volume] in Serum or Plasma [facility] IgG [Mass/volume] in Serum or Plasma [facility] IgM [Mass/volume] in Serum or Plasma [facility] Rocheport light chains.f ree [Mass/volume] in Serum [facility] Rocheport light chains.free/Lambda light chains.free [Mass Ratio] in Serum [facility] Lactate dehydrogenas e [Enzymatic activity/volume] in Unspecified specimen [facility] Lambda light chains. free [Mass/volume] in Serum or Plasma [facility] Patient Education [facility] Work Phone: Patient referral [facility] Work Phone: Protein [Mass/volume ] in Serum or Plasma [facility] Reagin Ab [Presence] in Serum by RPR [facility] Reagin Ab [Presence] in Serum by RPR RPR Lab Routine Missed menses , unspecified gestational age Ordered: 08/26/2024 [facility] Comment on above: Ordered: 08/26/2024 Rubella antibody, IgG Rubella an tibody, IgG Lab Routine Missed menses , unspecified gestational age Ordered: 08/26/2024 [facility] Comment on above: Ordered: 08/26/2024 Serum immunofixation [facility] Thyroglobulin Ab [Units/volume] in Serum or Plasma [facility] Thyroperoxidase Ab [Units/volume] in Serum or Plasma [facility] Thyrotropin receptor Ab [Units/volume] in Serum [facility] Tissue transglutamin ase IgA Ab [Units/volume] in Serum [facility] Tissue transglutamin ase IgG Ab [Units/volume] in Serum [facility] Immunizations Immunization Date Immunization Notes Care Provider Iker castro 09-01-2021 influenza virus vaccine, unspecified formulation Malagon Sarmini [facility] 01-10-2016 tetanus toxoid, reduced diphtheria toxoid, and acellular pertussis vaccine, adsorbed Malagon Sarmini [facility] 09-30-2009 hepatitis A vaccine, unspecified formulation Malagon Sarmini [facility] 09-30-2009 hepatitis B vaccine, pediatric or pediatric/adolescent dosage Malagon Sarmini [facility] 05-27-2009 hepatitis B vaccine, pediatric or pediatric/adolescent dosage Malagon Sarmini [facility] 03-22-2009 hepatitis A vaccine, unspecified formulation Malagon Sarmini [facility] 03-22-2009 hepatitis B vaccine, pediatric or pediatric/adolescent dosage Malagon Sarmini [facility] 03-22-2009 measles, mumps and rubella virus vaccine Malagon Sarmini [facility] 03-22-2009 meningococcal ACWY vaccine, unspecified formulation Malagon Sarmini [facility] 03-22-2009 tetanus toxoid, reduced diphtheria toxoid, and acellular pertussis vaccine, adsorbed Malagon Sarmini [facility] NEGATED: Highlighted row has not occurred!12-07-2023 influenza virus vaccine, unspecified formulation Malagon Sarmini [facility] Payers Date Payer Category Payer Self-pay [id number] 2022 Private Health Insurance [facility] [id number] 1992 Unknown [id number] 2.16.840.1.000534.3.579.2 .593 1992 Unknown [id number] 2.16.840.1.394724.3.579.2 .593 1992 Unknown [id number] 2.16.840.1.486420.3.579.2 .593 1992 Unknown [id number] 2.16.840.1.995250.3.579.2 .593 1992 Unknown [id number] 2.16.840.1.682719.3.579.2 .593 1992 Unknown [id number] 2.16.840.1.688681.3.579.2 .593 1992 Unknown [id number] 2.16.840.1.469418.3.579.2 .593 1992 Unknown [id number] 2.16.840.1.326557.3.579.2 .593 1992 Unknown [id number] 2.16.840.1.242147.3.579.2 .593 1992 Unknown [id number] 2.16.840.1.012421.3.579.2 .593 1992 Unknown [id number] 2.16.840.1.362902.3.579.2 .727 1992 Unknown [id number] 2.16.840.1.448505.3.579.2 .727 1992 Unknown [id number] 2.16.840.1.964078.3.579.2 .1286 1992 Unknown [id number] 2.16.840.1.146878.3.579.2 .1259 1992 Unknown [id number] 2.16.840.1.800081.3.579.2 .1259 1992 Unknown [id number] 2.16.840.1.640164.3.579.2 .9 1992 Unknown [id number] 2.16.840.1.170010.3.579.2 .1259 1959 Private Health Insurance [id number] 1959 Private Health Insurance [id number] 1959 Private Health Insurance [id number] Unknown Unknown [id number] 2.16.840.1.556759.3.579.2 .531 Unknown [id number] 2.16.840.1.967891.3.579.2 .531 Unknown [id number] 2.16.840.1.556932.3.579.2 .531 Worker's Compensation [id number] Social History Date Type Detail Facility Start: 04-04-2022 End: 02-18-2023 Tobacco smoking status NHIS Never smoked tobacco (finding) [facility] Start: 1990 Sex Assigned At Female F [facility] Start: 07-09-2023 End: 01-10-2024 Sex Assigned At [facility] Tobacco smoking status Never [facility] Start: 07-13-2024 [facility] Start: 08-07-2024 Sex Female (finding) [facility] Start: 02-18-2023 Tobacco use and exposure Smokeless tobacco non-user [facility] Start: 02-19-2024 End: 08-26-2024 Alcoholic beverage intake Current drinker of alcohol (finding) [facility] Start: 01-10-2024 End: 02-19-2024 Alcoholic beverage intake [facility] How many standard drinks containing alcohol do you have on a typical day? 1 or 2 [facility] How often do you hav e 6 or more drinks on 1 occasion? Monthly [facility] Start: 1990 Sex assigned at Not on file [facility] NEGATED: Highlighted row [facility] Goals Date Patient Goal Desired Activity /State Clinical Notes 04-03-2022 to 08-26-2024 Suze Lopez, MANAGER CARE - 08/26/2024 9:30 AM EST Note Date & Type Note Facility 08-26-2024 History of Presen t illness Narrative Reason for Appointment: Patient ID: Leandra Fonseca is a 34 y.o. female who presents for Amenorrhea Patient presents today for a Nurse OB Intake appointment. Patient is 8w2d with a Estimated Date of Delivery: 04/05/25 OB History Para Term AB Living 3 2 1 1 1 SAB IAB Ectopic Multiple Live Births 1 # Outcome Date GA Lbr Heriberto/2nd Weight Sex Type Anes PTL Lv 3 Current 2 Term 09/03/19 39w0d 6 lb 1 oz M CS-LTranv 1 01/06/16 31w3d 2 lb 15.6 oz M CS-LTranv WYATT Comments: Born at 31 weeks, delivered early due to preeclampsia. Complications: Mild pre-eclampsia, Severe pre-eclampsia Current Medications: has a current medication list which includes the following prescription(s): ondansetron odt and metoclopramide. Medical History: Active Ambulatory Problems Diagnosis Date Noted No Active Ambulatory Problems Resolved Ambulatory Problems Diagnosis Date Noted No Resolved Ambulatory Problems Past Medical History: Diagnosis Date Acid reflux 02/2017 Alpha thalassemia silent carrier Anemia Endometriosis Fibroid, uterine History of anemia History of hyperthyroidism Hypothyroidism (CMS/HCC) Irregular menses Menometrorrhagia Overweight (BMI 25.0-29.9) Syncope 06/2016 Varicella zoster Family History Problem Relation Name Age of Onset Diabetes Mother Makenna Hypertension Mother Makenna Deep vein thrombosis Father Tucker Diabetes Father Tucker Heart disease Father Tucker Arthritis Father Tucker Crohn's disease Sister Thyroid disease Sister Jailyn Leukemia Paternal Grandfather Melanoma Neg Hx Social History Tobacco Use Smoking status: Never Smokeless tobacco: Never Vaping Use Vaping status: Never Used Substance Use Topics Alcohol use: Yes Alcohol/week: 1.0 standard drink of alcohol Types: 1 Glasses of wine per week Drug use: Never Past Surgical History: Procedure Laterality Date SECTION, LOW TRANSVERSE 2015 31 weeks/PIH [facility] SECTION, LOW TRANSVERSE 09/03/[address] ANGIOGRAM CHEST 06/28/2018 CT ANGIOGRAM CHEST [facility] ANGIOGRAM CHEST 06/28/2018 CT ANGIOGRAM CHEST [facility] PAP SMEAR 07/03/2022 negative Allergies Allergen Reactions Labetalol Other, Shortness of breath and Unknown Other Reaction(s): Dizziness, loopiness, burning sensation in chest Other Reaction(s): Difficulty Breathing Cefdinir Other Reaction(s): Unknown Reaction Methimazole Other Reaction(s): throat closing Other Reaction(s): anaphylaxis Labetalol Hcl Hives Vitals: Estimated body mass index is 28.87 kg/m as calculated from the following: Height as of 02/19/24: 5' 3 . Weight as of 02/19/24: 163 lb. BP: Patient's last menstrual period was 06/23/2024. Assessment/Plan Diagnoses and all orders for this visit: Missed menses - Type and screen; Future - ABO/Rh; Future - CBC and differential - Hemoglobin A1c - RPR - Rubella antibody, IgG - Hepatitis B surface antigen - Hepatitis C antibody - HIV-1 and HIV-2 antibodies - Urine culture - US OB transvaginal; Future - POCT , urine manually resulted - POCT urinalysis dipstick manually resulted , unspecified gestational age - Type and screen; Future - ABO/Rh; Future - CBC and differential - Hemoglobin A1c - RPR - Rubella antibody, IgG - Hepatitis B surface antigen - Hepatitis C antibody - HIV-1 and HIV-2 antibodies - Rapid drug screen, urine; Future Encounter for supervision of normal first in first trimester - Rapid drug screen, urine; Future Nausea and vomiting in - metoclopramide (Reglan) 10 MG tablet; Take 1 tablet (10 mg) by mouth in the morning and 1 tablet (10 mg) at noon and 1 tablet (10 mg) in the evening. Take before meals. Take 1 tablet by mouth 30 minutes prior to meals 3 times daily as needed for nausea.. Nurse Note: OB Intake: Patient presents today for first OB visit. Patients history has been reviewed in great detail including any potential risks. Patient signed consent forms and patient desires testing in both trimesters. Patient currently has no complaints and has been advised to drink 6-8 glasses of water a day, eat no raw or undercooked meat, and stay away from [facility]. Patient has also been advised to not change litter boxes and eat 6 small meals a day. Patient has been consulted regarding the do's and don'ts of . Patient was given labs and all questions and concerns were answered. Follow Up: Patient is to return in 4 weeks for routine OB appointment. Follow Up: Patient is to have labs drawn at directed and return to office for initial OB appointment with provider. Patient may call office as needed with any concerns or questions. Nurse Visit Completed by: Suze Lopez LPN documented in this encounter [facility] 07-14-2024 Evaluation note Diagnosis Onset Date Resolution Abdominal pain acute July 142023 11:39am [facility] Work Phone: 1(433) 305-256910-18-2023 Progress note Author Kelly [facility] July 03, 2023 10:09pm Note Date/Time June 27, 2023 1 0:36am [facility] [place] [address] Hem/Onc Follow Up Note - OP Signed Patient: Leandra Fonseca MR#: [id number] : 1990 Acct:[id number] Age/Sex: 33 / F Type: REG RCR Copies to: Yudelka Lopez APRN, TOBACCO SHAKER-C~ Date of Service: 06/27/2023 Time of Service: [...] She believes she had this done at [facility] in [place] in 2019. We will request these records, and if they are not available, will plan repeat testing including hemoglobin electrophoresis. In themeantime check b12, folate, copper, epo, reticulocytes, haptoglobin, LDH, and christiano testing. B12 deficiency Will initiate weekly B12 injections x 4, then switch to monthly Follow Up Instructions: b12 weekly x 4 then monthly get [facility] records from 2019- hgb electrophoresis, thalassemia testing [...] cravings denies new complaints. Her periods are lap polisher now on control. Her heavy days she [...] for coordination of care (as documented) and hwfh-js-swsy counseling of patient and/or family. 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 Given return precautions. [employer] Other 07-18-2023 Progress note Author [facility] April 03, 2023 9:16am Note Date/Time March 21, 2023 3:35p m [facility] [place] [address] Hem/Onc Follow Up Note - OP Signed Patient: Leandra Fonseca MR#: [id number] : 1990 Acct:[id number] Age/Sex: 32 / F Type: REG RCR [...] cravings denies new complaints. Her periods are lap polisher now on control. Her heavy days she [...] after visit and call with concerning results [facility] - Medical History Medical History: Medical History [...] 25 mg rectal suppository (Anusol-HC) 25 mg RI DAILY 2 weeks #12 ea 05/23/23 [Rx Confirmed 03/21/23] propylthiouracil 50 mg tablet [...] for coordination of care (as documented) and ynqi-kl-gelz counseling of patient and/or family. Dictated By: Kelly Hough APRN DD/ 1535 Signed By: <Electronically signed by BETTY Hough> 04/03/23 0916 [facility] Work Phone: 1(880) 904-882304-19-2023 Progress note Author [facility] January 03, 2023 2:03pm Note Date/Time January 02, 2023 10: 47am [facility] [place] [id number] Hem/Onc Follow Up Note - OP Signed Patient: Leandra Fonseca MR#: [id number] : 1990 Acct:[id number] Age/Sex: 32 / F Type: REG RCR Copies to: Yudelka Lopez APRN, TOBACCO SHAKER-C~ Subjective Date/Time of Service: Date of Service: [...] cravings denies new complaints. Her periods are lap polisher now on control. Her heavy days she [...] for coordination of care (as documented) and gbda-mu-lfjf counseling of patient and/or family. Dictated By: Kelly Hough APRN DD/ 1046 Signed By: <Electronically signed by BETTY Hough> 01/03/23 1403 [facility] Work Phone: [phone]) 330-492904-07-2023 Evaluation note* Encounter Date Diagnosis Assessment Notes Treatment Notes Treatment Clinical Notes Dec, Abdominal pain (ICD-10 - R10.9) Dec, Bloating (ICD-10 - R14.0) Dec, Nausea (ICD-10 - R11.0) [employer] Other 04-06-2023 Evaluation note* Encounter Date Diagnosis [...] from [facility] in 2019 for EGD/Colonoscopy [facility] [employer] Other 01-17-2023 Consult note Author [facility] October 03, 2022 1:04pm Note Date/Time October 03, 2022 1 1:23am [facility] [place] [id number] Hem/Onc Consult Note - OP Signed with Gena Patient: Leandra Fonseca MR#: [id number] : 1990 Acct:[id number] Age/Sex: 32 / F Type: REG RCR Copies to: Yudelka Lopez APRN, TOBACCO SHAKER-C~ ADDENDUM1 Patient had labs after her visit that show persistent iron deficiency with ferritin low at 7.7 and hgb 9.7. Iron saturation ok, will still plan to replete with IV Venofer and follow-up as scheduled. Addendum Dictated By: BETTY Kelly Hough Addendum Signed By: 10/03/221303 Addendum Cosigned By: DD/ TD/TT: 10/03/22 HPI Date/Time of Service: Date of Service: 10/03/2022 Time of Service: : Referring Provider/PCP: Referring Provider: Yudelka Lopez APRN, [...] going to the ER with worsening symptoms. PMF - Medical History Medical History: Medical [...] for coordination of care (as documented) and fadg-ea-gjxd counseling of patient and/or family. Dictated By: Kelly Hough APRN DD/ 1123 Signed By: <Electronically signed by BETTY Hough> 10/03/22 1252 [facility] Work Phone: 1(331) 698-198607-18-2022 NotePROCEDURE DETAILS Preoperative Diagnosis: Left abdominal wall endometrioma Postoperative Diagnosis: Same Surgeon: Sly Crocker Resident/Fellow/Other Seasonal Tax Preparer: Ariel Thompson Procedure: 1. LEFT ABDOMINAL WALL TUMOR RESECTION 8X5.5X4CM 2. MESH RECONSTRUCTION ANTERIOR RECTUS FASCIA 7X5CM DEFECT (Bard Soft Mesh) 3. COMPLEX CLOSURE OF A 8CM WOUND Anesthesia: Alan Pardo Estimated Blood Loss: 10ml Findings: 8X5.5X4CM SOFT TISSUE MASS WITH EN BLOC FASCIA AND OVERLYING SKIN PADDLE Specimens(s) Collected: yes, Left anterior wall soft tissue mass -short tobdlkki81:00, long lateral 300 Complications: None Drains and/or [...] of the procedure. Note Recipients: Yudelka Lopez, BELT WORKER-CREDIT ADVISOR MALCOLM PENDLETON R - [id number] [] Attestation: Note Completion: Attending AttestationI was present for the entire procedure Electronic Signatures: Sly Crocker) (Signed 03-Apr-2022 17:55) Authored: Post-Operative Note, Chart Review, Note Completion Last Updated: 03-Apr-2022 17:55 by Sly Crocker)[facility]07-18-2022 NoteHistory & Physical Reviewed: /Lactating: Are [...] the note. I personally evaluated the patient [id number] Electronic Signatures: Miguel Crawford (Resident)) (Signed 03-Apr-2022 12:08) Authored: History & Physical Reviewed, ERAS, Consent, Note Completion Sly Crocker) (Signed 03-Apr-2022 14:42) Authored: Note Completion Co-Signer: History & Physical Reviewed, ERAS, Consent, Note Completion Last Updated: 03-Apr-2022 14:42 by Sly Crocker)[facility] No data available for this section [facility] Evaluation noteNo assessment information available [facility] Work Phone: Evaluation note* Diagnosis Onset Date Resolution Status Iron deficiency anemia due to chronic blood loss acute [facility] Work Phone: Evaluation note* Diagnosis Onset Date Resolution Status Abdominal pain acute [facility] Work Phone: Evaluation note* Diagnosis Missed menses , unspecified gestational age Encounter for supervision of normal first in first trimester Nausea and vomiting in Unspecified vomiting of , unspecified as to episode of care documented in this encounter [facility] - Reported* Type Description Date Medical History concussion Medical History IBS-C Surgical History C SECTION Hospitalization History see above [employer] Other History of Present illness Narrative* Ms. [...] sensorimotor deficits * Extremities: No leg swelling [facility] Work Phone: History of Present illness [...] to the telephone nature of this visit. [facility] Work Phone: Hospital Discharge instructions Additional Instructions If your symptoms return/worsen or you develop any further concerns or symptoms please see your doctor or return to the emergency department immediately.[facility] Work Phone: Hospital Discharge instructions Additional Instructions Follow-up with your primary care doctor Return to ED if you develop worsening symptoms or [facility] Work Phone: Hospital Discharge instructions Additional Instructions Return for worsening symptoms [facility] Work Phone: Hospital Discharge instructions No data available for this section [facility] Discharge instructions Additional Instructions We evaluated you for your symptoms. Your workup here was unremarkable. Please use the nausea medicine as prescribed. Please follow closely with your primary doctor. Please return to the emergency department if you develop any worsening or concerning symptoms. [facility] Work Phone: Progress note No data available for this section [facility] Summary Purpose Family History Relationship Condition Age at Onset Recorded Date/T charis father Myocardial infarction Unknown Not Specified Hypertension Unknown Not Specified Diabetes mellitus Unknown grandparent Malignant neoplasm Unknown Relationship Condition Age at Onset Recorded Date/T charis father Myocardial infarction Unknown mother Hypertension Unknown mother Diabetes mellitus Unknown grandparent Malignant neoplasm Unknown Advance Directives Advance Directive Response Recorded Date/ Time Advance [...] abd pain Reason for Visit Abdominal pain Chief Complaint Admit Date cough, vomiting July 14, 2024 1 1:39am fever, abd pain July 14, 2024 1 2:13pm SI August 06, 2024 11:39pm Reason for Visit Admit Date Abdominal pain July 14, 2024 1 1:39am Additional Source Comments INFORMATION SOURCE (unrecogn ized section and content) DATE CREATED AUTHOR 04/07/2022 [facility] DATE CREATED AUTHOR AUTHOR'S ORGANIZ ATION 04/23/2022 [employer] DATE CREATED AUTHOR AUTHOR'S ORGANIZ ATION 04/28/2022 [facility] DATE CREATED AUTHOR AUTHOR'S ORGANIZ ATION [facility]/16/2022 [facility] DATE CREATED AUTHOR AUTHOR'S ORGANIZ ATION 12/21/2022 [facility] DATE CREATED AUTHOR AUTHOR'S ORGANIZ ATION 12/11/2023 [facility] DATE CREATED AUTHOR AUTHOR'S ORGANIZ ATION 02/22/2024 [facility] DATE CREATED AUTHOR AUTHOR'S ORGANIZ ATION 08/29/2024 [facility] EPIC DATE CREATED AUTHOR AUTHOR'S ORGANIZ ATION 08/31/2024 [facility] Care Teams (unrecognized sec tion and content) Team Status: Active Member Role Status Dates Yudelka Lopez APRN TOBACCO SHAKER-C Primary Care Provider Act klever Team Status: Inactive Member Role Status Dates Yudelka Lopez APRN TOBACCO SHAKER-C Primary Care Provider Act klever Start: July 14, 2024 End: July 14, 2024 Larry Underwood PA-C Attending Provider Active St art: July 14, 2024 End: July 14, 2024 Team Status: Active Member Role Status Dates Yudelka Lopez APRN TOBACCO SHAKER-C Primary Care Provider, Re ferring Provider Active Kelly Hough APRN Attending Provider Acti ve Team Status: Inactive Member Role Status Dates Yudelka Lopez APRN TOBACCO SHAKER-C Primary Care Provider Act klever Horton MD Attending Provider Active Team Status: Inactive Member Role Status Dates Yudelka Lopez APRN TOBACCO SHAKER-C Primary Care Provider Act klever Vega PA-C Emergency Provider Active Team Status: Active Member Role Status Dates Yudelka Lopez APRN TOBACCO SHAKER-C Primary Care Provider, At tending Provider Active Team Status: Inactive Member Role Status Dates Yudelka Lopez APRN TOBACCO SHAKER-C Primary Care Provider Act klever Shanks MD Attending Provider Active Dayne Horton MD Referring Provider Active Team Status: Inactive Member Role Status Dates Yudelka Lopez APRN TOBACCO SHAKER-C Primary Care Provider, At tending Provider Active Team Status: Inactive Member Role Status Dates Yudelka Lopez APRN TOBACCO SHAKER-C Primary Care Provider Act klever Silva DO Emergency Provider Active Team Status: Inactive Member Role Status Dates Yudelka Lopez APRN TOBACCO SHAKER-C Primary Care Provider Act kleverCruz Crocker MD Attending Provider Active Team Status: Inactive Member Role Status Dates Yudelka Lopez APRN TOBACCO SHAKER-C Primary Care Provider Act klever Jim M Silvia , DO Emergency Provider Active Team Status: Inactive Member Role Status Dates Yudelka Lopez , BELT WORKER TOBACCO SHAKER-C Primary Care Provider Act klever Chris Greenwood , DO Emergency Provider Active Team Status: Inactive Member Role Status Dates Yudelka Lopez , BELT WORKER TOBACCO SHAKER-C Primary Care Provider Act klever Marvin Serrano Jr, MD Emergency Provider Active Team Status: Inactive Member Role Status Dates Yudelka Lopez , BELT WORKER TOBACCO SHAKER-C Primary Care Provider Act klever Frank Silva , DO Emergency Provider Active Vicky Fuentes DO RES Active Team Status: Inactive Member Role Status Dates Yudelka Lopez , BELT WORKER TOBACCO SHAKER-C Primary Care Provider Act klever Dhavalp Susan Peraaz , TOBACCO SHAKER-C Attending Provider Active Team Status: Inactive Member Role Status Dates Jim Vgea , DO Emergency Provider Active Yudelka Lopez , BELT WORKER TOBACCO SHAKER-C Primary Care Provider Act klever Team Status: Inactive Member Role Status Dates Yudelka Lopez , BELT WORKER TOBACCO SHAKER-C Primary Care Provider Act klever Jose Shanks MD Attending Provider Active Team Status: Inactive Member Role Status Dates Yudelka Lopez , BELT WORKER TOBACCO SHAKER-C Attending Provider Active Team Status: Inactive Member Role Status Dates uYdelka Lopez , BELT WORKER TOBACCO SHAKER-C Primary Care Provider Act klever Start: July 14, 2024 End: July 14, 2024 Sarah Dodd DO Emergency Provider Active Start: July 14, 2024 End: July 14, 2024 Lety Dougherty DO RES Active Sta rt: July 14, 2024 End: July 14, 2024 Team Status: Active Member Role Status Dates Yudelka Lopez , BELT WORKER TOBACCO SHAKER-C Primary Care Provider Act klever Start: August 06, 2024 Marvin Serrano Jr, MD Emergency Provider Active Start: August 06, 2024 Julián Naqvi MD Admit Provide r, Attending Provider Active Start: August 06, 2024 Fourth Officer Relationship Specialty Start Date End Date Sarah Lopez DO [facility] [place] [address] Referring Physician Emergency Medicine 02/18/23 Fourth Officer Relationship Specialty Start Date End Date Sarah Lopez DO [address] [place] [address] Referring Physician Emergency Medicine 02/18/23 Fourth Officer Relationship Specialty Start Date End Date Sarah Lopez DO [address] [place] [address] Referring Physician Emergency Medicine 02/18/23 Goals (unrecognized section and content) Goals may [...] FOR VISIT (unrecogniz ed section and content) Reason Comments Amenorrhea FOR RECORDS PERTAINING TO PATIENTS WHO ARE [...] BE BASED ON THE PRIMARY CLINICAL RECORDS. [employer] provides no warranty or guarantee of the accuracy or completeness of information in this document.
[2024-09-11 11:55] LABS: Basophils Percent Auto 0.1 % (0.2-2.0); Eosinophils Absolute Auto 0.1 10^3/uL (0.0-0.7); Eosinophils Percent Auto 1.4 % (0.9-7.0); Hematocrit 34.1 % (36.0-48.0); Hemoglobin 10.5 g/dL (12.0-16.0); Immature Granulocytes Abs Auto 0.03 10^3/uL (0.00-0.03); Immature Granulocytes Pct Auto 0.4 % (0.0-0.5); Lymphocytes Absolute Auto 1.3 10^3/uL (1.2-3.8); Lymphocytes Percent Auto 18.3 % (20.5-60.0); Mean Corpuscular HGB Conc 30.8 g/dL (29.9-35.2); Mean Corpuscular Volume 74.8 fL (81.0-99.0); Mean Platelet Volume 11.1 fL (9.5-13.5); Monocytes Absolute Auto 0.5 10^3/uL (0.3-0.8); Monocytes Percent Auto 6.3 % (1.7-12.0); Neutrophils Absolute Auto 5.3 10^3/uL (1.4-6.5); Neutrophils Percent Auto 73.5 % (43.0-75.0); Platelet Count 230 10^3/uL (150-450); Red Blood Count 4.56 10^6/uL (4.20-5.40); Red Cell Distribution Width 13.6 % (11.0-15.0); White Blood Count 7.2 10^3/uL (4.0-11.0)
[2024-09-11 11:59] LABS: Estimated Average Glucose 111 mg/dL; Glycohemoglobin A1C 5.5 % (4.5-6.2)
[2024-09-11 12:14] LABS: Thyroid Stimulating Hormone 0.138 uIU/mL (0.358-3.740)
[2024-09-11 12:25] LABS: Free T4 1.26 ng/dL (0.76-1.46)
[2024-09-11 12:54] LABS: Amphetamine Screen Urine NEGATIVE (NEGATIVE); Barbiturates Screen Urine NEGATIVE (NEGATIVE); Benzodiazepines Screen Urine NEGATIVE (NEGATIVE); Buprenorphine Screen Urine NEGATIVE (NEGATIVE); Cannabinoid Screen Urine NEGATIVE (NEGATIVE); Cocaine Screen Urine NEGATIVE (NEGATIVE); Methadone Screen Urine NEGATIVE (NEGATIVE); Methamphetamines Screen Urine NEGATIVE (NEGATIVE); Opiate Screen Urine NEGATIVE (NEGATIVE); Oxycodone Screen Urine NEGATIVE (NEGATIVE); Phencyclidine Screen Urine NEGATIVE (NEGATIVE); Tricyclic Antidepressant Urine NEGATIVE (NEGATIVE)
[2024-09-12 06:07] LABS: HBsAg Screen Negative (Negative); HCV Ab Non Reactive (Non Reactive); HIV Ab/p24 Ag Screen Non Reactive (Non Reactive)
[2024-09-12 09:07] LABS: Rapid Plasma Reagin, Quant Non Reactive titer (NonRea<1:1)
[2024-09-12 10:07] LABS: Rubella Antibodies, IgG 0.96 index (Immune >0.99)
[2024-09-12 14:45] LABS: BOX Test Reference Lab FIRELANDS; BOX Test Sent Out URINE
== END 2024-09-11 11:27 | disposition home or self-care (01) ==
LOC: LAB 11:27
PROVIDERS: Visit Provider Obstetrics & Gynecology
DX: O99.281 Endocrine, nutritional and metabolic diseases complicating pregnancy, first trimester (principal); E07.9 Disorder of thyroid, unspecified; N92.6 Irregular menstruation, unspecified
CPT/HCPCS: 36415; 80307; 83036; 84439; 84443; 85025; 86592; 86762; 86803; 86850; 86900; 86901; 87086; 87340; 87389

== ENCOUNTER 2024-10-14 20:19 | Outpatient (REF) | payer OTHER, SELFPAY ==
--- OUTSIDE RECORDS SUMMARY | 2024-10-14 20:23 | XMS_ITS | CCD ---
Author Organization [facility] Inform ion Partnership [employer] [facility] [facility] Care Team Providers Care Silk Examiner Name Role Phone Unknown, Unknown Unavailable Unavailable Yudelka Lopez Unavailable Unavailable Unavailable BETTY Lopez Primary Care Provider [phone] DO Chris Greenwood Emergency Provider DO Jim Vega Emergency Provider MD Sly Crocker Attending Provider [phone] DO Frank Silva Emergency Provider BETTY Lopez Attending Provider MD Marvin Serrano Jr Emergency Provider BETTY Lopez Primary Care Provider [phone] DO Frank Silva Emergency Provider BETTY Lopez Primary Care Provider DO Frank Silva Emergency Provider NADYA Peraza Attending Provider DO Jim Vega Emergency Provider BETTY Lopez Primary Care Provider BETTY Lopez Attending Provider BETTY Lopez Referring Provider BETTY Hough Attending Provider MD Dayne Horton Attending Provider BETTY Lopez Primary Care Provider NADYA Peraza Attending Provider DO Jim Vega Emergency Provider [phone] BETTY Lopez Attending Provider MD Dayne Horton [...] Primary Care Unavailable Dimitris, Jose Unavailable John SERVICE ORDER DISPATCHER Yudelka Lora Primary Care Provider MD Jose Shanks Attending Provider [phone] MD Dayne Horton Referring Provider John SERVICE ORDER DISPATCHER Yudelka Lora Primary Care Provider John SERVICE ORDER DISPATCHER Yudelka Lora Attending Provider John SERVICE ORDER DISPATCHER Yudelka Lora Referring Provider BETTY Hough Attending Provider John SERVICE ORDER DISPATCHER Yudelka Lora Primary Care Provider DO Jim Vega Emergency Provider John SERVICE ORDER DISPATCHER Yudelka Lora Referring Provider BETTY Hough Attending Provider John SERVICE ORDER DISPATCHER Yudelka Lora Referring Provider BETTY Hough Attending Provider Alfie Matthews Primary Care Physician John SERVICE ORDER DISPATCHER Yudelka Lora Primary Care Provider [phone] MD Dayne Horton Attending Provider [phone] John SERVICE ORDER DISPATCHER Yudelka Lora Referring Provider BETTY Hough Attending Provider Marvin Fontenot Unavailable John SERVICE ORDER DISPATCHER Yudelka Lora Referring Provider BETTY Hough Attending Provider John SERVICE ORDER DISPATCHER Yudelka Lora Primary Care Provider [phone] John SERVICE ORDER DISPATCHER Yudelka Lora Referring Provider BETTY Hough Attending Provider BETTY Lopez Attending Provider BETTY Lopez Rae Primary Care Provider Lopez, BETTY Paulino Referring Provider [place], SERVICE ORDER DISPATCHER Kelly Lugo Attending Provider Lex Elizabeth Attending Unavailable Kelly Hough Referring Unavailable Kelly Hough Referring Unavailable Lex Elizabeth Attending Unavailable Manas Simental Attending Unavaila JANETTE Martinez Attending Unavailable NO PCP, NO PCP Primary Care Unavailable BETTY Lopez Primary Care Provider DO Sarah Dodd Emergency Provider [phone] John SERVICE ORDER DISPATCHER, Yudelka Paulino Primary Care Provider Sarah Dodd DO Emergency Provider [phone] Marvin Serrano MD Emergency Provider Driss ANTOINE, Julián Admit Provider Driss ANTOINE, Julián Attending Provider [phone] Lopez Sarah Unavailable LOU PENDLETONY Attending Unavailable HELDER, MALCOLM Attending Unavailable HELDERLOUY Attending Unavailable HELDER, MALCOLM Attending Unavailable Julián Naqvi Attending Unavailab le Lopez, Yudelka Lora Primary Care Unavailable Driss, Julián Admitting Unavailab le Lopez, Yudelka Lora Primary Care Unavailable Keister, Frank A Attending Unavailable Keister Frank A Admitting Unavailable Helder, Malcolm Attending Unavailable Helder, Malcolm Admitting Unavailable Loepz, Yudelka Lora Admitting Unavailable Lopez, Yudelka Lora Attending Unavailable Driss, Julián Admitting Unavailab le Lopez, Yudelka Lora Primary Care Unavailable Tam Tracy Unavailable Nirmala Naqvirahman Attending Unavailab le Lopez, Yudelka Lora Primary Care Unavailable Sarah Dodd Attending Unavailable BrownSarah Admitting Unavailable Lopez, Yudelka Lora Primary Care Unavailable Jim Vega Attending Unavailable Jim Vega Admitting Unavailable Allergies Allergy Classification Reported Allergen(s) Allergy Type Date of Onset Reaction(s) Facility (6 sources) Albuterol; Translations: [albuterol] Drug Allergy [facility] Work Phone: (20 sources) Labetalol; Translations: [Labetalol] Drug Allergy 2 Shortness of breath, Unknown, Other [facility] (10 sources) THYROID MEDICATION Allergy to substance 3 Rash [facility] (4 sources) methIMAzole Drug Allergy 4 anaphylaxis [facility] (3 sources) methIMAzole Drug Allergy anaphylaxis [facility] Other (4 sources) cefdinir Drug Allergy 4 Unknown, Unknown Reaction [facility] (7 sources) Labetalol Drug Allergy 3 Hives [facility] (7 sources) methIMAzole Drug Allergy 3 [facility] (5 sources) cefdinir Drug Allergy 4 [facility] (1 source) cefdinir Drug Allergy 4 [facility] (1 source) methIMAzole Drug Allergy 4 [facility] Medications Current Medications Medication Drug Class(es) Dates Sig (Normalized) Sig (Original) All Day Allergy 10 mg oral tablet (2 sources) Start: 11-19-2020 take 1 tablet by mouth once daily All Day Allergy 10 mg oral tablet 10 mg = 1 tab(s), Oral, Daily, # 30 tab(s), Refills(s) 0, [facility] [address], [address], cm, 11/19/20 19:36:00 EST, Height/Length Dosing, 77, kg, 11/19/20 19:36:00 EST, Weight Dosing Start Date: 11/19/20 Status: Ordered ergocalciferol 1.25 mg oral capsule (2 sources) Provitamin D2 Compound Vitamin D (Ergocalciferol) 1.25 MG (67635 UT) Oral for 28 Days Active fluticasone 0.05 mg/inh Nasal [place] (2 sources) Start: 11-19-2020 take 2 spray(s) nasal route once daily fluticasone 0.05 mg/inh Nasal [place] 2 spray(s), Nasal, Daily, 16 gram, Refill(s) 0, each nostril, [facility], 158, cm, 11/19/20 19:36:00 EST, Height/Length Dosing, 77, kg, 11/19/20 19:36:00 EST, Weight Dosing Start Date: 11/19/20 Status: Ordered levonorgestrel 0.935362 mg/hr intrauterine system (3 sources) Progestin, Progestin-containi ng Intrauterine Device End: 08-26-2024 Levonorgestrel (Mirena, 52 MG,) 20 MCG/DAY intrauterine device by Intrauterine route 08/26/2024 Discontinued (Other) magnesium oxide 400 mg oral tablet (3 sources) Start: 09-11-2024 End: 04-09-2025 take 1 tablet by mouth once daily magnesium oxide (Mag-Ox) 400 MG tablet Indications: Other headache syndrome Take 1 tablet (400 mg) by mouth Daily 30 tablet 6 09/11/2024 04/09/2025 Active metoclopramide 10 mg oral tablet (7 sources) Dopamine-2 Receptor Antagonist Start: 08-26-2024 End: [...] 5 MG Oral for 5 Days Active [place] (No Known Home Meds) (2 sources) Start: 11-24-2023 [place] (No Kn own Home Meds) Active November 24, 2023 1:00am Start: 06-27-2023 [place] (No Kn own Home Meds) Active June 27, 2023 12:00am ondansetron 4 mg disintegrating oral tablet (20 sources) Serotonin-3 Receptor Antagonist Start: 08-08-2024 take 1 tablet by mouth every eight hours as needed ondansetron ODT (Zofran-ODT) 4 MG disintegrating tablet Take 4 mg by mouth every 8 (eight) hours if needed 08/08/2024 Active Start: 07-14-2024 take 1 tablet by shantel th every eight hours Ondansetron Hcl 4 mg tablet Active 4 MG PO Q8H 29 01July 13, 2024 11:00pm Start: 09-24-2023 End: 11-24-2023 [...] Start: 04-04-2022 take 1 tablet by shantel every eight hours Ondansetron 8 MG Oral [...] oral tablet (2 sources) Proton Pump Inhibitor Pantoprazo le Sodium 40 MG Oral for 30 Days Active permethrin 50 mg/ml topical cream (1 source) Pyrethroid Start: 06-04-20 Permethrin 5 % 1 application from head to toe Externally apply tonight, then apply again in 14 days for 2 days May, Active predniSONE 20 mg oral tablet (1 source) Start: 06-04-20 take 1 tablet by mouth every eight hours predniSONE 20 MG 1 tablet Orally 3 times a day for 5 days May, Active Multivitamins with Folic Acid 1 mg and Docusate oral kit (2 sources) Start: 05-28-20 Multivitamins with Folic Acid 1 mg and Docusate oral kit Oral, Daily, Refill(s) 0, Prophylaxis Start Date: 05/28/19 Status: Ordered promethazine hydrochloride 12.5 mg oral tablet (20 sources) Phenothiazine Start: 09-11-20 take 1 tablet by mouth every six hours as needed for nausea and nausea, then take 1 tablet by mouth every six hours as needed for nausea and nausea promethazine (Phenergan) 12.5 MG tablet Indications: Nausea and vomiting during Take 1 tablet (12.5 mg) by mouth every 6 (six) hours if needed for nausea or vomiting for up to 30 doses Take 1 tablet by mouth every 6 hours as needed for nausea. 30 tablet 2 09/11/2024 Active Start: 09-11-2024 take 1 tablet by shantel th every six hours as needed for nausea and nausea, then take 1 tablet by mouth every six hours as needed for nausea and nausea promethazine (Phenergan) 12.5 MG tablet Indications: Nausea and vomiting during Take 1 tablet (12.5 mg) by mouth every 6 (six) hours if needed for nausea or vomiting for up to 30 doses Take 1 tablet by mouth every 6 hours as needed for nausea. 30 tablet 2 09/11/2024 Active Start: 09-11-2024 take 1 tablet by shantel th every six hours as needed for nausea and nausea, then take 1 tablet by mouth every six hours as needed for nausea and nausea promethazine (Phenergan) 12.5 MG tablet Indications: Nausea and vomiting during Take 1 tablet (12.5 mg) by mouth every 6 (six) hours if needed for nausea or vomiting for up to 30 doses Take 1 tablet by mouth every 6 hours as needed for nausea. 30 tablet 2 09/11/2024 Active Start: 01-26-2019 End: 03-01-2019 take 1 tablet [...] meal or within 4 hours of bedtime Completed/Discontinued Medications Medication Drug Class(es) Dates Sig (Normalized) Sig (Original) [id number] 200 actuat albuterol 0.09 mg/actuat metered dose [...] times daily as needed for muscle spasm 06 04November 16, 2023 12:00am November 24, 2023 7:54am [...] (Anusol-Hc) 25 mg suppository Discontinued 25 MG OK Daily 08 30February 05, 2023 11:00pm June 27, 2023 9:32am hydrocortisone acetate 10 mg/ml / pramoxine hydrochloride 10 mg/ml rectal foam (19 sources) Corticosteroid Start: 06-01-2022 End: 09-21-2022 Hydrocortisone-Pram oxine (Proctofoam Hc) 1-1 % foam Discontinued 1 APPLIC OK Three times daily 10 May 31, 2022 11:00pm September 21, 2022 [...] Start: 03-02-2020 take 1 capsule by mo [facility] once daily linaclotide 145 mcg oral capsule 145 microgram = 1 cap(s), Oral, Daily, # 30 cap(s), Refills(s) 0, Pharmacy: [facility], 158, cm, 03/02/20 13:33:00 EDT, Height/Length Measured, [...] 2018 12:00am November 26, 2018 10:27pm Pnv,Calcium 49-Noez-Slbdf Ac id ( Vitamin Plus Low Iron) 27 mg iron- 1 mg tablet (20 sources) Start: 03-01-2019 End: 12-11-2019 Pnv,Calcium 86-Stgh-Bcqik Ac id ( Vitamin Plus Low Iron) 27 mg iron- 1 mg tablet Discontinued 27 MG PO Daily February 28, 2019 11:00pm December 11, 2019 8:47pm Start: 03-01-2019 End: 12-11-2019 Pnv,Calcium 62-Kekg-Rzwub Ac id ( Vitamin Plus Low Iron) 27 mg iron- 1 mg tablet Discontinued 27 MG PO Daily March 01, 2019 12:00am December 11, 2019 9:47pm propylthiouracil 50 mg oral tablet (11 sources) [...] administering Start: 06-01-2022 take 8 [oz_av] by [facility] twice daily Psyllium Seed (Sugar) (Metamucil (Sugar) Oral Powder) powder Active 1 TBSP PO Twice daily May 31, 2022 11:00pm mix into at least 8 oz of water or juice before administering Start: 06-01-2022 take 8 [oz_av] by [facility] twice daily Psyllium Seed (Sugar) (Metamucil (Sugar) [...] [Hemorrhage of anus and rectum] 06-01-2022 Episodic Headache; including migraine (2 sources) Headache disorder; Translations: [Other headache syndrome] 09-11-2024 Episodic Heart valve disorders (2 sources) Heart [...] Costal chondritis 01-08-2018 Episodic Other complications of (3 sources) Vomiting of , unspecified; Translations: [Unspecified vomiting of , unspecified as to episode of care or not applicable] 08-26-2024 Episodic Other complications of (2 sources) Thyroid disease in mother complicating , childbirth AND/OR puerperium; Translations: [Endocrine, nutritional and metabolic diseases complicating , unspecified trimester] 09-11-2024 Episodic Other connective tissue disease (13 sources) [...] supervision of normal , unspecified, unspecified trimester] Onset: 09-11-2024 01-26-2019 Episodic Other skin disorders (6 sources) [...] ovarian cyst, unspecified side] Onset: 08-01-2022 Episodic Residual codes; unclassified (5 sources) Gestation period, 10 weeks; Translations: [10 weeks gestation of ] Onset: 09-11-2024 09-11-2024 Episodic Superficial injury; contusion (20 sources) Contusion [...] Test Name Value Interpretation Reference Range Facility ALL CBC WITH AUTO DIFFon BASOPHILS ABSOLUTE AUTO 0 [facility] Basophils/100 WBC (Bld) 0.1 % Low 0.2 - 2.0 % [facility] Eosinophils/100 WBC (Bld) 1.4 % 0.9 - 7.0 % [facility] Erythrocyte distribution width (RBC) [Ratio] 13.6 % 11.0 - 15.0 % [facility] Hematocrit (Bld) [Volume fraction] 34.1 % Low 36.0 - 48.0 % [facility] Hemoglobin (Bld) [Mass/Vol] 10.5 g/dL Low 12.0 - 16.0 g/dL [facility] IMMATURE GRANULOCYTES ABS AUTO 0.03 [facility] Immature granulocytes/100 WBC (Bld) 0.4 % 0.0 - 0.5 % [facility] Interpretation and review of laboratory results Abnormal [facility] LYMPHOCYTES ABSOLUTE AUTO 1.3 [facility] Lymphocytes/100 WBC (Bld) 18.3 % Low 20.5 - 60.0 % [facility] MCH (RBC) [Entitic mass] 23 pg Low 26.7 - 34.0 pg [facility] MCHC (RBC) [Mass/Vol] 30.8 g/dL 29.9 - 35.2 g/dL [facility] MCV (RBC) [Entitic vol] 74.8 fL Low 81.0 - 99.0 fL [facility] MONOCYTES ABSOLUTE AUTO 0.5 [facility] Monocytes/100 WBC (Bld) 6.3 % 1.7 - 12.0 % [facility] NEUTROPHILS ABSOLUTE AUTO 5.3 [facility] Neutrophils/100 WBC (Bld) 73.5 % 43.0 - 75.0 % [facility] Platelet mean volume (Bld) [Entitic vol] 11.1 fL 9.5 - 13.5 fL [facility] TBH EO # 0.1 [facility] PLT 230 [facility] RBC 4.56 [facility] WBC 7.2 [facility] Urinalysis macro (dipstick) panel (U)on 09-11-2024 Bilirubin, UA Negative Negative - 4(70) +++ mg/dL [facility] Blood, UA Positive Negative - 50 Hong/mcL [facility] Comment on above: trace Clarity, UA Clear [facility] Color, UA Yellow [facility] Glucose, UA Negative Negative - 1999(110) ++++ mg/dL [facility] Interpretation and review of laboratory results Abnormal [facility] Ketones, UA Negative Negative - 160(16) ++++ mg/dL [facility] Leukocytes, UA Trace Negative - 500+++ Iqra/mcL [facility] Nitrite, UA Negative Negative - Positive [facility] pH, UA 7 5 - 9 [facility] Protein, UA Negative Negative - 1999(20) ++++ mg/dL [facility] Spec Grav, UA 1.01 1 - 1.03 [facility] Urobilinogen, UA 0.2 0.2 - 12 mg/dL [facility] Urine Cultureon 09-11-2024 Bacteria identified Cx Nom (U) >100,000 colonies/ml mixed bacterial skin contaminants 2 Days PERFORMED BY: [place] [address] PATHOLOGIST [employer] SUPER[employer] TRISTEN MOSELEY M.D. Normal [facility] Comment on above: Performed By: #### C BC, CMP, FE and TIBC, CONSTANTINO, [id number] #### [facility] [address] HCG ( test) Ql (U)o n 08-26-2024 Interpretation and review of laboratory results Abnormal [facility] Preg Test, Ur Positive Negative [facility] Urinalysis macro (dipstick) panel (U)on 08-26-2024 Bilirubin, UA Negative Negative - 4(70) +++ mg/dL [facility] Blood, UA Negative Negative - 50 Hong/mcL [facility] Clarity, UA Clear [facility] Color, UA Yellow [facility] Glucose, UA Negative Negative - 1999(110) ++++ mg/dL [facility] Interpretation and review of laboratory results Abnormal [facility] Ketones, UA Positive Negative - 160(16) ++++ mg/dL [facility] Leukocytes, UA Negative Negative - 500+++ Iqra/mcL [facility] Nitrite, UA Negative Negative - Positive [facility] pH, UA 7 5 - 9 [facility] Protein, UA Negative Negative - 2000(20) ++++ mg/dL [facility] Spec Grav, UA 1.015 1 - 1.03 [facility] Urobilinogen, UA 1.0 0.2 - 12 mg/dL [facility] ECG 12 lead ECGon 08-07-2024 ECG 12 lead ECG [facility] Main [place] [id number] Electrocardiograph Report Signed Patient: Leandra Fonseca MR#: [id number] : 1990 Acct:[id number] Age/Sex: 34 / F ADM Date: 08/06/24 Loc: Room: [address] [place] [address] Type: ADM IN Attending Dr: Julián Naqvi MD Ordering Provider: Julián Naqvi MD Date of Service: 08/07/24 ECG/ECG 12 lead ECG: baseline for psych [employer] Copies to: Test Reason : Blood Pressure [...] by 30 bpm Confirmed by Brock Rowe ([id number]) on 08/07/2024 5:03:20 PM Referred By: Electronically Signed By: Brock Rowe Transcribed By: MUS Signed By Brock Rowe MD 08/07/24 1703 Normal [facility] US OB transvaginalon 024 US OB transvaginal [facility] Main [address] [address] Ultrasound Report Signed Patient: Leandra Fonseca MR#: [id number] : 1990 Acct:[id number] Age/Sex: 34 / F ADM Date: 08/06/24 Loc: Room: 9U2397-8 Type: ADM IN Attending Dr: Julián Naqvi MD Ordering Provider: Julián Naqvi MD; TAM TRACY MD Date of Service: 08/07/24 US/US OB <= 14 weeks fetus: dating and anatomy ([id number]) US/US OB transvaginal: . Copies to: MD [...] Michell Miller M.D.08/07/2024 6:32 PM Dictation Location: [place] [address] Tech: Tena Romero Transcribed By: CHRISTINE 08/07/241831 Dictated By: Michell Miller MD 08/07/241824 Signed By: 08/07/241831 Normal [facility] Alanine aminotransferase [En zymatic activity/volume] in Serum or PlasmaOrdered By: Marvin Serrano on 08-06-2024 ALT [Catalytic activity/Vol] Alanine aminotransferase [Enzymatic activity/volume] in Serum or Plasma 7-52 [facility] Albumin [Mass/volume] in Ser um or Plasma by Bromocresol green (BCG) dye binding methoOrdered By: Marvin Serrano on 08-06-2024 Albumin BCG dye [Mass/Vol] Albumin [Mass/volume] in Serum or Plasma by Bromocresol green (BCG) dye binding metho 3.5-5.7 [facility] Alkaline phosphatase [Enzyma tic activity/volume] in Serum or PlasmaOrdered By: Marvin Serrano on 08-06-2024 ALP [Catalytic activity/Vol] Alkaline phosphatase [Enzymatic activity/volume] in Serum or Plasma 34-104 [facility] Amphetamine Screen Ql (U)Ord ered By: Marvin Serrano on 08-06-2024 Amphetamines Ql (U) Amphetamines screen Negativ e [facility] Appearance of UrineOrdered B y: Marvin Serrano on 08-06-2024 Appearance (U) Urine appearance [facility] Aspartate aminotransferase [ Enzymatic activity/volume] in Serum or PlasmaOrdered By: Marvin Serrano on 08-06-2024 AST [Catalytic activity/Vol] Aspartate aminotransferase [Enzymatic activity/volume] in Serum or Plasma Low 13-39 [facility] Bacteria [Presence] in Urine by AutomatedOrdered By: Marvin Serrano on 08-06-2024 Bacteria Auto Ql (U) Bacteria [Presence] in Urine by Automated None Seen [facility] Barbiturates [Presence] in U rine by Screen methodOrdered By: Mavrin Serrano on 08-06-2024 Barbiturates Screen Ql (U) Barbiturates [Presence] in Urine by Screen method Negative [facility] Basophils Auto (Bld) [#/Vol] Ordered By: Marvin Serrano on 08-06-2024 Basophils (Bld) [#/Vol] Automated basophil count 0.0-0.2 [facility] Basophils/100 WBC Auto (Bld) Ordered By: Marvin Serrano on 08-06-2024 Basophils/100 WBC (Bld) Automated basophil % . [facility] Benzodiazepines Screen Ql (U )Ordered By: Marvin Serrano on 08-06-2024 Benzodiazepines Ql (U) Benzodiazepines [ Presence] in Urine by Screen method Negative [facility] Benzoylecgonine [Presence] i n Urine by Screen methodOrdered By: Marvin Serrano on 08-06-2024 Benzoylecgonine Screen Ql (U) Benzoylecgonine [Presence] in Urine by Screen method Negative [facility] Bilirubin Test strip Ql (U)O rdered By: Marvin Serrano on 08-06-2024 Bilirubin Ql (U) Bilirubin.total [Pre sence] in Urine by Test strip Negative [facility] Bilirubin.total [Mass/volume ] in Serum or PlasmaOrdered By: Marvin Serrano on 08-06-2024 Bilirubin [Mass/Vol] Bilirubin.total [Mass/volume] in Serum or Plasma 0.3-1.0 [facility] Calcium [Mass/volume] in Ser um or PlasmaOrdered By: Marvin Serrano on 08-06-2024 Calcium [Mass/Vol] Calcium [Mass/volume ] in Serum or Plasma 8.6-10.3 [facility] Cannabinoids [Presence] in U rine by Screen methodOrdered By: Marvin Serrano on 08-06-2024 Cannabinoids Screen Ql (U) Cannabinoids [Presence] in Urine by Screen method Negative [facility] Comment on above: These are [...] l [Moles/volume] in Serum or Plasma 21.0-31.0 [facility] Chloride [Moles/volume] in S salas or PlasmaOrdered By: Marvin Serrano on 08-06-2024 Chloride [Moles/Vol] Chloride [Moles/vol ume] in Serum or Plasma 98-107 [facility] Choriogonadotropin.beta subu nit [Units/volume] in Serum or PlasmaOrdered By: Marvin Serrano on 08-06-2024 HCG.beta subunit Qn Choriogonadotropin.b eta subunit [Units/volume] in Serum or Plasma [facility] Comment on above: Approximate Approxim ate hCG Gestational Age Range (mIU/ml) (weeks)0.2-1 5-50 1-2 50-500 2-3 100-5,000 3-4 500-10,000 4-5 1,000-50,000 5-6 10,000-100,000 6-8 15,000-200,000 8-12 10,000-100,000 Color Auto (U)Ordered By: Dane Serrano on 08-06-2024 Color (U) Color of Urine by Auto Yellow Fi [facility] Complete Blood Count Auto Di ffon 08-06-2024 Basophils (Bld) [#/Vol] 0.1 10*3/uL Normal 0.0-0.2 [facility] Comment on above: Result Comment: PERF ORMED BY: [place] [address] PATHOLOGIST [employer] SU[employer] TRISTEN MOSELEY M.D. Performed By: #### E NATALIE, CBC, CMP #### [facility] [address] [place] [address] Basophils/100 WBC (Bld) 0.7 % Normal . [facility] Comment on above: Performed By: #### E NATALIE, CBC, CMP #### [facility] [address] [place] [address] Eosinophils (Bld) [#/Vol] 0.1 10*3/uL Normal 0.0-0.45 [facility] Comment on above: Performed By: #### E NATALIE, CBC, CMP #### [address] Eosinophils/100 WBC (Bld) 0.8 % Normal . [facility] Comment on above: Performed By: #### E NATALIE, CBC, CMP #### [address] Erythrocyte distribution width (RBC) [Ratio] 14.0 % Normal 11.9-15.3 [facility] Comment on above: Performed By: #### E NATALIE, CBC, CMP #### [address] Hematocrit (Bld) [Volume fraction] 33.2 % Low 34.0-46.4 [facility] Comment on above: Performed By: #### E NATALIE CBC, CMP #### [address] Hemoglobin (Bld) [Mass/Vol] 10.5 g/dL Low 11.8-15.4 [facility] Comment on above: Performed By: #### E NATALIE CBC, CMP #### [address] Lymphocytes (Bld) [#/Vol] 1.0 10*3/uL Normal 1.00-4.8 [facility] Comment on above: Performed By: #### E NATALIE CBC, CMP #### [address] Lymphocytes/100 WBC (Bld) 12.7 % Normal . [facility] Comment on above: Performed By: #### E NATALIE, CBC, CMP #### [address] MCH (RBC) [Entitic mass] 23.0 pg Low 24.7-34.3 [facility] Comment on above: Performed By: #### E NATALIE, CBC, CMP #### [address] MCV (RBC) [Entitic vol] 73.0 fL Low 80-100 [facility] Comment on above: Performed By: #### E NATALIE, CBC, CMP #### [address] Mean Corpuscular HGB Conc 31.5 g/dL Low 32.0-35.0 [facility] Comment on above: Performed By: #### E NATALIE, CBC, CMP #### [address] Monocytes (Bld) [#/Vol] 0.5 10*3/uL Normal 0.0-0.8 [facility] Comment on above: Performed By: #### E NATALIE, CBC, CMP #### [place] [address] [place] Monocytes/100 WBC (Bld) 17.93 % Normal 0.00-20.00 [facility] Comment on above: Performed By: #### E NATALIE, CBC, CMP #### [address] Monocytes/100 WBC (Bld) 6.8 % Normal . [facility] Comment on above: Performed By: #### E NATALIE, CBC, CMP #### [address] Neutrophils (Bld) [#/Vol] 6.2 10*3/uL Normal 1.8-7.7 [facility] Comment on above: Performed By: #### E NATALIE, CBC, CMP #### [place] [address] [place] Neutrophils/100 WBC (Bld) 79.0 % Normal . [facility] Comment on above: Performed By: #### E NATALIE, CBC, CMP #### [place] [address] [place] NRBC% 0.0 /100{WBC} Normal 0-0.5 [facility] Comment on above: Performed By: #### E NATALIE, CBC, CMP #### [address] Platelet mean volume (Bld) [Entitic vol] 9.3 fL Normal 6.3-10.7 [facility] Comment on above: Performed By: #### E NATALIE CBC, CMP #### [address] Platelets (Bld) [#/Vol] 220 10*3/uL Normal 150-450 [facility] Comment on above: Performed By: #### E NATALIE CBC, CMP #### [address] RBC (Bld) [#/Vol] 4.55 10*6/uL Normal 3.60-5.00 [facility] Comment on above: Performed By: #### E NATALIE CBC, CMP #### [address] WBC (Bld) [#/Vol] 7.9 10*3/uL Normal 3.8-11.6 [facility] Comment on above: Performed By: #### E NATALIE CBC, CMP #### [address] Comprehensive Metabolic Pane tommie 08-06-2024 Albumin [Mass/Vol] 4.0 g/dL Normal 3.5-5.7 [facility] Comment on above: Performed By: #### E WANDA ESTRADA, CMP #### [address] Albumin/Globulin [Mass ratio] 1.3 {ratio} Normal [facility] Comment on above: Performed By: #### E NATALIE CBC, CMP #### [address] ALP [Catalytic activity/Vol] 44 U/L Normal 34-104 [facility] Comment on above: Performed By: #### E NATALIE CBC, CMP #### [address] ALT [Catalytic activity/Vol] 7 U/L Normal 7-52 [facility] Comment on above: Performed By: #### E NATALIE CBC, CMP #### [address] Anion gap [Moles/Vol] 11.0 mmol/L Normal 6.0-15.0 [facility] Comment on above: Performed By: #### E NATALIE CBC, CMP #### [address] AST [Catalytic activity/Vol] 11 U/L Low 13-39 [facility] Comment on above: Performed By: #### E NATALIE CBC, CMP #### [address] Bilirubin [Mass/Vol] 0.6 mg/dL Normal 0.3-1.0 [facility] Comment on above: Performed By: #### E WANDA ESTRADA, CMP #### [address] Calcium [Mass/Vol] 9.0 mg/dL Normal 8.6-10.3 [facility] Comment on above: Performed By: #### Albino ESTRADA CBC, CMP #### [address] Chloride [Moles/Vol] 107 mmol/L Normal 98-107 [facility] Comment on above: Performed By: #### WANDA RIVERA, CMP #### [address] CO2 [Moles/Vol] 22.7 mmol/L Normal 21.0-31.0 [facility] Comment on above: Performed By: #### E NATALIE CBC, CMP #### [address] Creatinine [Mass/Vol] 0.64 mg/dL Normal 0.60-1.20 [facility] Comment on above: Performed By: #### E NATALIE CBC, CMP #### [address] Creatinine Clr Calc Pharmacy 119.09 Normal [facility] Comment on above: Result Comment: PERF ORMED BY: [place] [address] PATHOLOGIST [employer] TRISTEN MOSELEY M.D. Performed By: #### E NATALIE CBC, CMP #### [address] GFR/1.73 sq M.predicted MDRD (S/P/Bld) [Vol rate/Area] mL/min/{1.73_m2} Normal [facility] Comment on above: Performed By: #### E NATALIE CBC, CMP #### [facility] [address] Globulin (S) [Mass/Vol] 3.0 g/dL Normal [facility] Comment on above: Performed By: #### E NATALIE CBC, CMP #### [address] Glucose [Mass/Vol] 98 mg/dL Normal 70-100 [facility] Comment on above: Result Comment: [place] Glucose Reference Range is dependent on time and content of last meal. Glucose of more than 200 mg/dL in a nonstressed, ambulatory subject supports the diagnosis of Diabetes Mellitus. ADA recommended reference range Performed By: #### E NATALIE CBC, CMP #### [address] Potassium [Moles/Vol] 3.7 mmol/L Normal 3.5-5.1 [facility] Comment on above: Performed By: #### E NATALIE CBC, CMP #### [place] [address] [place] Protein [Mass/Vol] 7.0 g/dL Normal 6.4-8.9 [facility] Comment on above: Performed By: #### E NATALIE CBC, CMP #### [place] [address] [place] Sodium [Moles/Vol] 137 mmol/L Normal 136-145 [facility] Comment on above: Performed By: #### E NATALIE, CBC, CMP #### [address] Urea nitrogen [Mass/Vol] 7 mg/dL Normal 7-25 [facility] Comment on above: Performed By: #### E NATALIE, CBC, CMP #### [facility] [address] [place] [address] Creatinine [Mass/volume] in Serum or PlasmaOrdered By: Marvin Serrano on 08-06-2024 Creatinine [Mass/Vol] Creatinine [Mass/v olume] in Serum or Plasma 0.60-1.20 [facility] Dipstick and Microscopicon 1 10-06-2023 Appearance (U) Clear Normal Clear [facility] Comment on above: Order Comment: Name Collection Type:: Clean-Voided Midstream Performed By: #### A DDONUAPLUS, UHCG, URDS #### [address] Bacteria,Urine Rare Normal None Seen [facility] Comment on above: Order Comment: Name Collection Type:: Clean-Voided Midstream Performed By: #### A DDONUAPLUS, UHCG, URDS #### [address] Bilirubin,Urine Negative Normal Negative [facility] Comment on above: Order Comment: Name Collection Type:: Clean-Voided Midstream Performed By: #### A DDONUAPLUS, UHCG, URDS #### [address] Color (U) Light-Yellow Normal Yellow [facility] Comment on above: Order Comment: Name Collection Type:: Clean-Voided Midstream Performed By: #### A DDONUAPLUS, UHCG, URDS #### [address] Glucose Ql (U) Normal Normal Normal [facility] Comment on above: Order Comment: Name Collection Type:: Clean-Voided Midstream Performed By: #### A DDONUAPLUS, UHCG, URDS #### [address] Hyaline Casts,Urine None Normal 0-8 [facility] Comment on above: Order Comment: Name Collection Type:: Clean-Voided Midstream Performed By: #### A DDONUAPLUS, UHCG, URDS #### [address] Ketones Ql (U) 3+ High Negative [facility] Comment on above: Order Comment: Name Collection Type:: Clean-Voided Midstream Performed By: #### A DDONUAPLUS, UHCG, URDS #### [address] Leukocyte esterase Test strip Ql (U) Negative Normal Negative [facility] Comment on above: Order Comment: Name Collection Type:: Clean-Voided Midstream Performed By: #### A DDONUAPLUS, UHCG, URDS #### [address] Mucus,Urine Rare Normal [facility] Comment on above: Order Comment: Name Collection Type:: Clean-Voided Midstream Performed By: #### A DDONUAPLUS, UHCG, URDS #### [place] [address] [place] Nitrite,Urine Negative Normal Negative [facility] Comment on above: Order Comment: Name Collection Type:: Clean-Voided Midstream Performed By: #### A DDONUAPLUS, UHCG, URDS #### [address] Occult Blood,Urine Trace High Negative [facility] Comment on above: Order Comment: Name Collection Type:: Clean-Voided Midstream Performed By: #### A DDONUAPLUS, UHCG, URDS #### [address] pH (U) 7.0 [pH] Normal 5.0-9.0 [facility] Comment on above: Order Comment: Name Collection Type:: Clean-Voided Midstream Performed By: #### A DDONUAPLUS, UHCG, URDS #### [address] Protein,Urine Negative Normal Negative [facility] Comment on above: Order Comment: Name Collection Type:: Clean-Voided Midstream Performed By: #### A DDONUAPLUS, UHCG, URDS #### [address] RBC,Urine 1 [HPF] Normal 0-4 [facility] Comment on above: Order Comment: Name Collection Type:: Clean-Voided Midstream Performed By: #### A DDONUAPLUS, UHCG, URDS #### [address] Specificy [place],Urine 1.016 Normal 1.001-1.03 0 [facility] Comment on above: Order Comment: Name Collection Type:: Clean-Voided Midstream Performed By: #### A DDONUAPLUS, UHCG, URDS #### [address] Squamous Epithelial Cell,Urine 5 [HPF] High 0-2 [facility] Comment on above: Order Comment: Name Collection Type:: Clean-Voided Midstream Performed By: #### A DDONUAPLUS, UHCG, URDS #### [address] Urobilinogen,Urine Normal Normal Normal [facility] Comment on above: Order Comment: Name Collection Type:: Clean-Voided Midstream Performed By: #### A DDONUAPLUS, UHCG, URDS #### [address] WBC,Urine 1 [HPF] Normal 0-4 [facility] Comment on above: Order Comment: Name Collection Type:: Clean-Voided Midstream Performed By: #### A DDONUAPLUS, UHCG, URDS #### [address] Drug Screen,Urineon 08-06-20 24 Amphetamine Screen,Urine Negative Normal Negative [facility] Comment on above: Performed By: #### A DDONUAPLUS, UHCG, URDS #### [address] Barbiturate Screen,Urine Negative Normal Negative [facility] Comment on above: Performed By: #### A DDONUAPLUS, UHCG, URDS #### [address] Benzodiazepines Screen,Urine Negative Normal Negative [facility] Comment on above: Performed By: #### A DDONUAPLUS, UHCG, URDS #### [address] Cannabinoid Screen,Urine Negative Normal Negative [facility] Comment on above: Result Comment: Thes e are unconfirmed results and should not be used for legal purposes. Drug Cut-Off Concentration: AMPH 1000 ng/mL BEKA 200 ng/mL CALDERON 200 ng/mL COCM 300 ng/mL OP 300 ng/mL PCP 25 ng/mL THC 20 ng/mL PERFORMED BY: [place] [address] PATHOLOGIST [employer] TRISTEN MOSELEY M.D. Performed By: #### A DDONUAPLUS, UHCG, URDS #### [address] Cocaine Screen,Urine Negative Normal Negative [facility] Comment on above: Performed By: #### A DDONUAPLUS, UHCG, URDS #### [address] Opiate Screen,Urine Negative Normal Negative [facility] Comment on above: Performed By: #### A DDONUAPLUS, UHCG, URDS #### [address] Phencyclidine Screen,Urine Negative Normal Negative [facility] Comment on above: Performed By: #### A DDONUAPLUS, UHCG, URDS #### [place] [address] [place] Eosinophils Auto (Bld) [#/Vo l]Ordered By: Marvin Serrano on 08-06-2024 Eosinophils (Bld) [#/Vol] Automated eosinophil count 0.0-0.45 [facility] Eosinophils/100 WBC Auto (Bl d)Ordered By: Marvin Serrano on 08-06-2024 Eosinophils/100 WBC (Bld) Automated eosinophil % . [facility] Epithelial cells.squamous [# /area] in Urine sediment by Automated countOrdered By: Marvin Serrano on 08-06-2024 Epithelial cells.squamous Auto (Urine sed) [#/Area] Epithelial cells.squamous [#/area] in Urine sediment by Automated count High 0-2 [facility] Erythrocyte distribution wid th Auto (RBC) [Ratio]Ordered By: Marvin Serrano on 08-06-2024 Erythrocyte distribution width (RBC) [Ratio] Erythrocyte distribution width [Ratio] by Automated count 11.9-15.3 [facility] Erythrocytes [#/area] in Uri ne sediment by Automated countOrdered By: Marvin Serrano on 08-06-2024 RBC Auto (Urine sed) [#/Area] Erythrocytes [#/area] in Urine sediment by Automated count 0-4 [facility] Ethanol [Mass/volume] in Ser um or PlasmaOrdered By: Marvin Serrano on 08-06-2024 Ethanol [Mass/Vol] Ethanol [Mass/volume ] in Serum or Plasma [facility] Comment on above: Test not performed Ethyl Alcohol Profileon 07-19 Ethanol [Mass/Vol] mg/dL Normal [facility] Comment on above: Performed By: #### C BC, CMP, FE and TIBC, CONSTANTINO, [id number] #### [facility] [address] [place] [address] Percent Ethanol Not performed Normal [facility] Comment on above: Result Comment: PERF ORMED BY: [place] [address] PATHOLOGIST [employer] TRISTEN MOSELEY M.D. Performed By: #### C BC, CMP, FE and TIBC, CONSTANTINO, [id number] #### [facility] [address] [place] [address] Globulin Calc (S) [Mass/Vol] Ordered By: Marvin Serrano on 08-06-2024 Globulin (S) [Mass/Vol] Serum globulin measurement by calculation (mass/volume) [facility] Glucose [Mass/volume] in Ser um or PlasmaOrdered By: Marvin Serrano on 08-06-2024 Glucose [Mass/Vol] Glucose [Mass/volume ] in Serum or Plasma 70-100 [facility] Comment on above: ADA recommended [...] [Mass/volume] in Urine by Test strip Normal [facility] HCG ( test) IA.rapi d Ql (U)Ordered By: Marvin Serrano on 08-06-2024 HCG ( test) Ql (U) Urine human chorionic gonadotropin (hCG) detection by immunoassay [facility] HCG,Quantitativeon HCG,Quantitative 64745.00 m[iU]/mL Normal T [facility] Comment on above: Result Comment: Appr oximate Approximate hCG Gestational Age Range (mIU/ml) (weeks) 0.2-1 5-50 1-2 50-500 2-3 100-5,000 3-4 500-10,000 4-5 1,000-50,000 5-6 10,000-100,000 6-8 15,000-200,000 8-12 10,000-100,000 PERFORMED BY: [place] [address] PATHOLOGIST [employer] TRISTEN MOSELEY M.D. Performed By: #### C BC, CMP, FE and TIBC, CONSTANTINO, [id number] #### [facility] [address] [place] [address] HCG,Urineon 08-06-2024 Beta HCG ( test) Ql (U) Positive [facility] Comment on above: Order Comment: Name Collection Type:: Clean-Voided Midstream Result Comment: PERF ORMED BY: [place] [address] PATHOLOGIST [employer] TRISTEN MOSELEY M.D. Performed By: #### A DDONUAPLUS, UHCG, URDS #### [facility] [address] [id number] [facility] Hematocrit Auto (Bld) [Volum e fraction]Ordered By: Marvin Serrano on 08-06-2024 Hematocrit (Bld) [Volume fraction] Hematocrit [Volume Fraction] of Blood by Automated count Low 34.0-46.4 [facility] Hemoglobin Test strip Ql (U) Ordered By: Marvin Serrano on 08-06-2024 Hemoglobin Ql (U) Hemoglobin [Presence ] in Urine by Test strip High Negative [facility] Hemoglobin [Mass/volume] in BloodOrdered By: Marvin Serrano on 08-06-2024 Hemoglobin (Bld) [Mass/Vol] Hemoglobin [Mass/volume] in Blood Low 11.8-15.4 [facility] Hyaline casts [#/area] in Ur ine sediment by Automated countOrdered By: Marvin Serrano on 08-06-2024 Hyaline casts Auto (Urine sed) [#/Area] Hyaline casts [#/area] in Urine sediment by Automated count 0-8 [facility] Ketones Test strip Ql (U)Ord ered By: Marvin Serrano on 08-06-2024 Ketones Ql (U) Ketones [Presence] i n Urine by Test strip High Negative [facility] Leukocyte esterase [Presence ] in Urine by Test stripOrdered By: Marvin Serrano on 08-06-2024 Leukocyte esterase Test strip Ql (U) Leukocyte esterase [Presence] in Urine by Test strip Negative [facility] Leukocytes [#/area] in Urine sediment by Automated countOrdered By: Marvin Serrano on 08-06-2024 WBC Auto (Urine sed) [#/Area] Leukocytes [#/area] in Urine sediment by Automated count 0-4 [facility] Leukocytes [#/volume] correc delmer for nucleated erythrocytes in Blood by Automated counOrdered By: Marvin Serrano on 08-06-2024 WBC corrected for nucl RBC Auto (Bld) [#/Vol] Leukocytes [#/volume] corrected for nucleated erythrocytes in Blood by Automated coun 3.8-11.6 [facility] Lipid Panelon 08-06-2024 Cholesterol [Mass/Vol] 128 mg/dL Low 140-200 [facility] Comment on above: Order Comment: Comme nt use ER blood Result Comment: Chol less than 200 mg/dl low risk Chol 201-239 mg/dl borderline risk Chol 240 mg/dl and greater high risk Performed By: #### C BC, CMP, FE and TIBC, CONSTANTINO, [id number] #### [facility] [address] Cholesterol in HDL [Mass/Vol] 59 mg/dL Normal 23-92 [facility] Comment on above: Order Comment: Comme nt use ER blood Result Comment: HDL CHOL ATP-III CLASSIFICATION Cardiovascular Risk HDL > or equal to 60 mg/dL LOW HDL < 40 mg/dL HIGH Performed By: #### C BC, CMP, FE and TIBC, CONSTANTINO, [id number] #### [facility] [address] Cholesterol.total/Chol esterol in HDL [Mass ratio] 2.2 {ratio} Normal <5.0 [facility] Comment on above: Order Comment: Comme nt use ER blood Performed By: #### C BC, CMP, FE and TIBC, CONSTANTINO, [id number] #### [facility] [address] LDL Cholesterol,Calculated 63 mg/dL Normal 0-100 [facility] Comment on above: Order Comment: Comme nt use ER blood Result Comment: LDL ATP III CLASSIFICATION LDL less than 100 mg/dL Optimal LDL 100-129 mg/dL Near or above optimal LDL 130-159 mg/dL Borderline high LDL 160-189 mg/dL High LDL greater than 189 mg/dL Very high Performed By: #### C BC, CMP, FE and TIBC, CONSTANTINO, [id number] #### [facility] [address] Triglyceride w/Reflex 29 mg/dL Normal 0-149 [facility] Comment on above: Order Comment: Comme nt use ER blood Result Comment: TRIG ATP III CLASSIFICATION TRIG less than 150 mg/dL Normal TRIG 150-199 mg/dL Borderline high TRIG 200-500 mg/dL High TRIG greater than 500 mg/dL Very high Standard traceable to the Center for Disease Conrtrol and Prevention (CDC) test method. Performed By: #### C BC, CMP, FE and TIBC, CONSTANTINO, [id number] #### [facility] [address] VLDL CHOLESTEROL 5 mg/dL Normal [facility] Comment on above: Order Comment: Comme nt use ER blood Performed By: #### C BC, CMP, FE and TIBC, CONSTANTINO, [id number] #### [facility] [address] Lymphocytes Auto (Bld) [#/Vo l]Ordered By: Marvin Serrano on 08-06-2024 Lymphocytes (Bld) [#/Vol] Lymphocytes [#/volume] in Blood by Automated count 1.00-4.8 [facility] Lymphocytes/100 WBC Auto (Bl d)Ordered By: Marvin Serrano on 08-06-2024 Lymphocytes/100 WBC (Bld) Lymphocytes/100 leukocytes in Blood by Automated count . [facility] MCH Auto (RBC) [Entitic mass ]Ordered By: Marvin Serrano on 08-06-2024 MCH (RBC) [Entitic mass] MCH [Entitic mass] by Automated count Low 24.7-34.3 [facility] MCHC Auto (RBC) [Mass/Vol]Or dered By: Marvin Serrano on 08-06-2024 MCHC (RBC) [Mass/Vol] MCHC [Mass/volume] by Automated count Low 32.0-35.0 [facility] MCV Auto (RBC) [Entitic vol] Ordered By: Marvin Serrano on 08-06-2024 MCV (RBC) [Entitic vol] MCV [Entitic volume] by Automated count Low 80-100 [facility] Monocyte distribution width [Entitic volume] in Blood by AutomatedOrdered By: Marvin Serrano on 08-06-2024 Monocyte distribution width Auto (Bld) [Entitic vol] Monocyte distribution width [Entitic volume] in Blood by Automated 0.00-20.00 [facility] Monocytes Auto (Bld) [#/Vol] Ordered By: Marvin Serrano on 08-06-2024 Monocytes (Bld) [#/Vol] Automated blood monocyte count 0.0-0.8 [facility] Monocytes/100 WBC Auto (Bld) Ordered By: Marvin Serrano on 08-06-2024 Monocytes/100 WBC (Bld) Automated monocyte % . [facility] Mucus [Presence] in Urine by AutomatedOrdered By: Marvin Serrano on 08-06-2024 Mucus Auto Ql (U) Mucus [Presence] in Urine by Automated [facility] Neutrophils Auto (Bld) [#/Vo l]Ordered By: Marvin Serrano on 08-06-2024 Neutrophils (Bld) [#/Vol] Neutrophils [#/volume] in Blood by Automated count 1.8-7.7 [facility] Neutrophils/100 WBC Auto (Bl d)Ordered By: Marvin Serrano on 08-06-2024 Neutrophils/100 WBC (Bld) Automated neutrophil % . [facility] Nitrite Test strip Ql (U)Ord ered By: Marvin Serrano on 08-06-2024 Nitrite Ql (U) Nitrite [Presence] i n Urine by Test strip Negative [facility] No Panel InformationOrdered By: Marvin Serrano on 08-06-2024 Estimated GFR (CKD-EPI) > 60.0 mL/Min [facility] Creatinine Clearance (Chem 119.09 [facility] Nucleated erythrocytes [Pres ence] in Blood by Automated countOrdered By: Marvin Serrano on 08-06-2024 Nucleated RBC Auto Ql (Bld) Nucleated erythrocytes [Presence] in Blood by Automated count 0-0.5 [facility] Opiates [Presence] in Urine by Screen methodOrdered By: Marvin Serrano on 08-06-2024 Opiates Screen Ql (U) Opiates [Presence] in Urine by Screen method Negative [facility] Phencyclidine Screen Ql (U)O rdered By: Marvin Serrano on 08-06-2024 Phencyclidine Ql (U) Phencyclidine [Pres ence] in Urine by Screen method Negative [facility] Platelet mean volume Auto (B ld) [Entitic vol]Ordered By: Marvin Serrano on 08-06-2024 Platelet mean volume (Bld) [Entitic vol] Platelet mean volume [Entitic volume] in Blood by Automated count 6.3-10.7 [facility] Platelets Auto (Bld) [#/Vol] Ordered By: Marvin Serrano on 08-06-2024 Platelets (Bld) [#/Vol] Platelets [#/volume] in Blood by Automated count 150-450 [facility] Potassium [Moles/volume] in Serum or PlasmaOrdered By: Marvin Serrano on 08-06-2024 Potassium [Moles/Vol] Potassium [Moles/v olume] in Serum or Plasma 3.5-5.1 [facility] Protein Test strip (U) [Mass /Vol]Ordered By: Marvin Serrano on 08-06-2024 Protein (U) [Mass/Vol] Protein [Mass/vol ume] in Urine by Test strip Negative [facility] Protein [Mass/volume] in Ser um or PlasmaOrdered By: Marvin Serrano on 08-06-2024 Protein [Mass/Vol] Protein [Mass/volume ] in Serum or Plasma 6.4-8.9 [facility] RBC Auto (Bld) [#/Vol]Ordere d By: Marvin Serrano on 08-06-2024 RBC (Bld) [#/Vol] Erythrocytes [#/volu me] in Blood by Automated count 3.60-5.00 [facility] Serum or plasma albumin/glob ulin mass ratioOrdered By: Marvin Serrano on 08-06-2024 Albumin/Globulin [Mass ratio] Serum or plasma albumin/globulin mass ratio [facility] Serum or plasma anion gap de terminationOrdered By: Marvin Serrano on 08-06-2024 Anion gap [Moles/Vol] Serum or plasma an ion gap determination 6.0-15.0 [facility] Sodium [Moles/volume] in Ser um or PlasmaOrdered By: Marvin Serrano on 08-06-2024 Sodium [Moles/Vol] Sodium [Moles/volume ] in Serum or Plasma 136-145 [facility] Specific gravity Test strip (U) [Rel density]Ordered By: Marvin Serrano on 08-06-2024 Specific gravity (U) [Rel density] Specific gravity of Urine by Test strip 1.001-1.03 0 [facility] Thyroid Stim Hormone w/Rflxo n 08-06-2024 Thyroid Stim Hormone w/Rflx 1.33 u[iU]/mL Normal 0.45-5.33 [facility] Comment on above: Order Comment: Comme nt use ER blood Performed By: #### C BC, CMP, FE and TIBC, CONSTANTINO, [id number] #### [address] Urea nitrogen [Mass/volume] in Serum or PlasmaOrdered By: Marvin Serrano on 08-06-2024 Urea nitrogen [Mass/Vol] Urea nitrogen [Mass/volume] in Serum or Plasma 7-25 [facility] Urobilinogen Test strip (U) [Mass/Vol]Ordered By: Marvin Serrano on 08-06-2024 Urobilinogen (U) [Mass/Vol] Urobilinogen [Mass/volume] in Urine by Test strip Normal [facility] Vitamin D 25 Hydroxy Totalon 08-06-2024 Vitamin D 25 Hydroxy Total 9.7 ng/mL Low 30-100 [facility] Comment on above: Order Comment: Comme nt use ER blood Result Comment: ALEXIA MIN D STATUS 25(OH)VITAMIN D RANGE (ng/mL) Deficient <20 Insufficient 20 to <30 Sufficient 30 to 100 Reference: Pam MF,Abelardo NC, Cj GARZA, et al. Evaluation,treatment, and prevention of vitamin D deficiency; an Endocrine Society clinical practice guideline. JCEM. 2010; 96(7):1911-30. PERFORMED BY: [place] [address] PATHOLOGIST [employer] TRISTEN MOSELEY M.D. Performed By: #### C BC, CMP, FE and TIBC, CONSTANTINO, [id number] #### [place] [id number] [facility] WBC Auto (Bld) [#/Vol]Ordere d By: Marvin Serrano on 08-06-2024 WBC (Bld) [#/Vol] Leukocytes [#/volume ] in Blood by Automated count 3.8-11.6 [facility] pH Test strip (U)Ordered By: Marvin Serrano on 08-06-2024 pH (U) pH of Urine by Test strip 5.0-9.0 [facility] TBH PREG QUANT HCGon 024 HCG QUANTITATIVE 4763 mIU/mL [facility] Comment on above: 5-50 0.2-1 WEEK 50-500 1-2 WEEKS 100-5,000 2-3 WEEKS 500-10,000 3-4 WEEKS 1,000-50,000 4-5 WEEKS 10,000-100,000 5-6 WEEKS 15,000-200,000 6-8 WEEKS 10,000-100,000 [facility]CGon 16-2 024 HCG QUANTITATIVE 2355 mIU/mL [facility] Comment on above: 5-50 0.2-1 WEEK 50-500 1-2 WEEKS 100-5,000 2-3 WEEKS 500-10,000 3-4 WEEKS 1,000-50,000 4-5 WEEKS 10,000-100,000 5-6 WEEKS 15,000-200,000 6-8 WEEKS 10,000-100,000 2[facility] Alanine aminotransferase [En zymatic activity/volume] in Serum or PlasmaOrdered By: Sarah Dodd on 07-14-2024 ALT [Catalytic activity/Vol] 9 U/L Normal [facility] Comment on above: Performed By: #### C BC, CMP, FE and TIBC, CONSTANTINO, [id number] #### [facility] [address] [place] [address] ALT [Catalytic activity/Vol] Alanine aminotransferase [Enzymatic activity/volume] in Serum or Plasma [facility] Albumin [Mass/volume] in Ser um or Plasma by Bromocresol green (BCG) dye binding methoOrdered By: Sarah Dodd on 07-14-2024 Albumin BCG dye [Mass/Vol] 4.1 g/dL 3.5-5.7 [facility] Albumin BCG dye [Mass/Vol] Albumin [Mass/volume] in Serum or Plasma by Bromocresol green (BCG) dye binding metho 3.5-5.7 [facility] Alkaline phosphatase [Enzyma tic activity/volume] in Serum or PlasmaOrdered By: Sarah Dodd on 07-14-2024 ALP [Catalytic activity/Vol] 48 U/L Normal [facility] Comment on above: Performed By: #### C BC, CMP, FE and TIBC, CONSTANTINO, [id number] #### [facility] [address] ALP [Catalytic activity/Vol] Alkaline phosphatase [Enzymatic activity/volume] in Serum or Plasma [facility] Appearance of UrineOrdered B y: Sarah Yousif on 07-14-2024 Appearance (U) Urine appearance [facility] Aspartate aminotransferase [ Enzymatic activity/volume] in Serum or PlasmaOrdered By: Sarah Yousif on 07-14-2024 AST [Catalytic activity/Vol] 14 U/L Normal 13-39 [facility] Comment on above: Performed By: #### C BC, CMP, FE and TIBC, CONSTANTINO, [id number] #### [address] AST [Catalytic activity/Vol] Aspartate aminotransferase [Enzymatic activity/volume] in Serum or Plasma 13- [facility] Automated basophil %Ordered By: Sarah Dodd on 07-14-2024 Basophils/100 WBC (Bld) 0.4 % Normal . [facility] Comment on above: Performed By: #### C BC, CMP, FE and TIBC, CONSTANTINO, [id number] #### [address] Automated basophil countOrde red By: Sarah Dodd on 07-14-2024 Basophils (Bld) [#/Vol] 0.0 10*3/uL Normal 0.0-0.2 [facility] Comment on above: Result Comment: PERF ORMED BY: [place] [address] PATHOLOGIST [employer] CLAU ZAVALA M.D. Performed By: #### C BC, CMP, FE and TIBC, CONSTANTINO, [id number] #### [address] Automated blood monocyte cou ntOrdered By: Sarah Dodd on 07-14-2024 Monocytes (Bld) [#/Vol] 0.5 10*3/uL Normal 0.0-0.8 [facility] Comment on above: Performed By: #### C BC, CMP, FE and TIBC, CONSTANTINO, [id number] #### [address] Automated eosinophil %Ordere d By: Sarah Dodd on 07-14-2024 Eosinophils/100 WBC (Bld) 0.6 % Normal . [facility] Comment on above: Performed By: #### C BC, CMP, FE and TIBC, CONSTANTINO, [id number] #### [facility] [address] Automated eosinophil countOr dered By: Sarah Dodd on 07-14-2024 Eosinophils (Bld) [#/Vol] 0.0 10*3/uL Normal 0.0-0.45 [facility] Comment on above: Performed By: #### C BC, CMP, FE and TIBC, CONSTANTINO, [id number] #### [address] Automated monocyte %Ordered By: Sarah Dodd on 07-14-2024 Monocytes/100 WBC (Bld) 12.3 % Normal . [facility] Comment on above: Performed By: #### C BC, CMP, FE and TIBC, CONSTANTINO, [id number] #### [address] Automated neutrophil %Ordere d By: Sarah Dodd on 07-14-2024 Neutrophils/100 WBC (Bld) 63.5 % Normal . [facility] Comment on above: Performed By: #### C BC, CMP, FE and TIBC, CONSTANTINO, [id number] #### [address] Bacteria [Presence] in Urine by AutomatedOrdered By: Sarah Dodd on 07-14-2024 Bacteria Auto Ql (U) Rare [HPF] None Seen [facility] Bacteria Auto Ql (U) Bacteria [Presence] in Urine by Automated None Seen [facility] Basic Metabolic Panelon 06-18 Creatinine Clr Calc Pharmacy 107.14 Normal [facility] Comment on above: Performed By: #### C BC, CMP, FE and TIBC, CONSTANTINO, [id number] #### [address] GFR/1.73 sq M.predicted MDRD (S/P/Bld) [Vol rate/Area] mL/min/{1.73_m2} Normal [facility] Comment on above: Performed By: #### C BC, CMP, FE and TIBC, CONSTANTINO, [id number] #### [facility] [address] [place] [address] [place] Basophils Auto (Bld) [#/Vol] Ordered By: Sarah Dodd on 07-14-2024 Basophils (Bld) [#/Vol] Automated basophil count 0.0-0.2 [facility] Basophils/100 WBC Auto (Bld) Ordered By: Sarah Dodd on 07-14-2024 Basophils/100 WBC (Bld) Automated basophil % . [facility] Bilirubin Test strip Ql (U)O rdered By: Sarah Dodd on 07-14-2024 Bilirubin Ql (U) Negative Negative [facility] Bilirubin Ql (U) Bilirubin.total [Pre sence] in Urine by Test strip Negative [facility] Bilirubin.direct [Mass/volum e] in Serum or PlasmaOrdered By: Sarah Dodd on 07-14-2024 Bilirubin.direct [Mass/Vol] 0.10 mg/dL 0.03-0.18 [facility] Bilirubin.direct [Mass/Vol] Bilirubin.direct [Mass/volume] in Serum or Plasma 0.03-0.18 [facility] Bilirubin.total [Mass/volume ] in Serum or PlasmaOrdered By: Sarah Dodd on 07-14-2024 Bilirubin [Mass/Vol] 0.4 mg/dL Normal 0.3-1.0 [facility] Comment on above: Performed By: #### C BC, CMP, FE and TIBC, CONSTANTINO, [id number] #### [facility] [address] Bilirubin [Mass/Vol] Bilirubin.total [Mass/volume] in Serum or Plasma 0.3-1.0 [facility] COVID CepheidOrdered By: Macarena Dodd on 07-14-2024 SARS-CoV-2 (COVID-19) Ab IA Ql Negative Negative [facility] Comment on above: This is a duplicate Cepheid Xpert Xpress CoV-2/Flu/RSV Plus RNA by RT-PCR result to be used for statistical tracking purpose only. SARS-CoV-2 (COVID-19) RNA HIRAM+probe Ql (Unsp spec) [facility] COVID Cepheid NegativeOrdere d By: Sarah Dodd on 07-14-2024 SARS-CoV-2 (COVID-19) Ab IA Ql COVID Cepheid Negative [facility] Comment on above: This is [...] or Cepheid Disclaimer revoked sooner. PERFORMED BY: [place] [address] PATHOLOGIST [employer] CLAU ZAVALA M.D. Normal [facility] Comment on above: Performed By: #### C BC, CMP, FE and TIBC, CONSTANTINO, [id number] #### [address] abdomen pelvis w conon CT abdomen pelvis w con [facility] Main [place] [address] [place] [address] CT Scan Report Signed Patient: Leandra Fonseca MR#: [id number] 1238 : 1990 Acct:[id number] Age/Sex: 34 / F ADM Date: 07/14/24 Loc: ER Room: Type: [facility] ER Attending Dr: Copies to: DO Lety Fuller DO, RES Ordering Provider: Lety Dougherty DO, RES Date [...] Mancera Jr., D.OJorge07/14/2024 2:43 PM Dictation Location: [place] [address] Transcribed By: [facility] 07/14/24 1443 Dictated By: Leroy Mancera Jr, DO 07/14/24 1438 Signed By: 07/14/24 1443 Normal [facility] Calcium [Mass/volume] in Ser um or PlasmaOrdered By: Sarah Dodd on 07-14-2024 Calcium [Mass/Vol] 8.9 mg/dL Normal 8.6-10.3 [facility] Comment on above: Performed By: #### C BC, CMP, FE and TIBC, CONSTANTINO, [id number] #### [address] Calcium [Mass/Vol] Calcium [Mass/volume ] in Serum or Plasma 8.6-10.3 [facility] Carbon dioxide, total [Moles /volume] in Serum or PlasmaOrdered By: Sarah Dodd on 07-14-2024 CO2 [Moles/Vol] 25.2 mmol/L Normal 21.0-31.0 [facility] Comment on above: Performed By: #### C BC, CMP, FE and TIBC, CONSTANTINO, [id number] #### [facility] [address] [place] [id number] [facility] CO2 [Moles/Vol] Carbon dioxide, tota l [Moles/volume] in Serum or Plasma 21.0-31.0 [facility] Cepheid COVID PCR Negativeon 07-14-2024 SARS-CoV-2 (COVID-19) RNA HIRAM+probe Ql (Unsp spec) Negative Normal Negative [facility] Comment on above: Result Comment: This is a duplicate Cepheid Xpert Xpress CoV-2/Flu/RSV Plus RNA by RT-PCR result to be used for statistical tracking purpose only. PERFORMED BY: [place] [address] PATHOLOGIST [employer] CLAU ZAVALA M.D. Performed By: #### C BC, CMP, FE and TIBC, CONSTANTINO, [id number] #### [place] [address] [place] Chloride [Moles/volume] in S salas or PlasmaOrdered By: Sarah Dodd on 07-14-2024 Chloride [Moles/Vol] 105 mmol/L Normal -[address] [place] [address] Comment on above: Performed By: #### C BC, CMP, FE and TIBC, CONSTANTINO, [id number] #### [place] [address] [place] Chloride [Moles/Vol] Chloride [Moles/vol ume] in Serum or Plasma -[address] [place] [address] Color Auto (U)Ordered By: Godfrey Dodd on 07-14-2024 Color (U) Color of Urine by Auto Yellow Fi [facility] Color of Urine by AutoOrdere d By: Sarah Dodd on 07-14-2024 Color (U) Yellow Normal Yellow [facility] Comment on above: Order Comment: Name Collection Type:: Clean-Voided Midstream Performed By: #### C BC, CMP, FE and TIBC, CONSTANTINO, [id number] #### [address] Complete Blood Count Auto Di ffon 07-14-2024 Mean Corpuscular HGB Conc 32.2 g/dL Normal 32.0-35.0 [facility] Comment on above: Performed By: #### C BC, CMP, FE and TIBC, CONSTANTINO, [id number] #### [facility] [address] Monocytes/100 WBC (Bld) 20.43 % High 0.00-20.00 [facility] Comment on above: Result Comment: For adults in ED, MDW > 20.0 may be associated with a higher risk of sepsis during the first 12 hrs of hospital admission Performed By: #### C BC, CMP, FE and TIBC, CONSTANTINO, [id number] #### [address] NRBC% 0.1 /100{WBC} Normal 0-0.5 [facility] Comment on above: Performed By: #### C BC, CMP, FE and TIBC, CONSTANTINO, [id number] #### [address] Creatinine [Mass/volume] in Serum or PlasmaOrdered By: Sarah Dodd on 07-14-2024 Creatinine [Mass/Vol] 0.71 mg/dL Normal 0.60-1.20 [facility] Comment on above: Performed By: #### C BC, CMP, FE and TIBC, CONSTANTINO, [id number] #### [address] Creatinine [Mass/Vol] Creatinine [Mass/v olume] in Serum or Plasma 0.60-1.20 [facility] Dipstick and Microscopicon 1 Bacteria,Urine Rare Normal None Seen [facility] Comment on above: Order Comment: Name Collection Type:: Clean-Voided Midstream Performed By: #### C BC, CMP, FE and TIBC, CONSTANTINO, [id number] #### [address] Bilirubin,Urine Negative Normal Negative [facility] Comment on above: Order Comment: Name Collection Type:: Clean-Voided Midstream Performed By: #### C BC, CMP, FE and TIBC, CONSTANTINO, [id number] #### [place] [address] [place] Glucose Ql (U) Normal Normal Normal [facility] Comment on above: Order Comment: Name Collection Type:: Clean-Voided Midstream Performed By: #### C BC, CMP, FE and TIBC, CONSTANTINO, [id number] #### [address] Hyaline Casts,Urine None Normal 0-8 [facility] Comment on above: Order Comment: Name Collection Type:: Clean-Voided Midstream Performed By: #### C BC, CMP, FE and TIBC, CONSTANTINO, [id number] #### [address] Mucus,Urine 2+ Critically abnormal [facility] Comment on above: Order Comment: Name Collection Type:: Clean-Voided Midstream Performed By: #### C BC, CMP, FE and TIBC, CONSTANTINO, [id number] #### [address] Nitrite,Urine Negative Normal Negative [facility] Comment on above: Order Comment: Name Collection Type:: Clean-Voided Midstream Performed By: #### C BC, CMP, FE and TIBC, CONSTANTINO, [id number] #### [address] Occult Blood,Urine 1+ High Negative [facility] Comment on above: Order Comment: Name Collection Type:: Clean-Voided Midstream Performed By: #### C BC, CMP, FE and TIBC, CONSTANTINO, [id number] #### [facility] [address] [place] [address] RBC,Urine 20-49 High 0-4 [facility] Comment on above: Order Comment: Name Collection Type:: Clean-Voided Midstream Performed By: #### C BC, CMP, FE and TIBC, CONSTANTINO, [id number] #### [address] Specificy [place],Urine 1.030 Normal 1.001-1.03 0 [facility] Comment on above: Order Comment: Name Collection Type:: Clean-Voided Midstream Performed By: #### C BC, CMP, FE and TIBC, CONSTANTINO, [id number] #### [address] Squamous Epithelial Cell,Urine 5-9 High 0-2 [facility] Comment on above: Order Comment: Name Collection Type:: Clean-Voided Midstream Performed By: #### C BC, CMP, FE and TIBC, CONSTANTINO, [id number] #### [facility] [address] [place] [address] Urobilinogen,Urine 3 mg/dL High Normal [facility] Comment on above: Order Comment: Name Collection Type:: Clean-Voided Midstream Performed By: #### C BC, CMP, FE and TIBC, CONSTANTINO, [id number] #### [address] WBC,Urine 5-9 High 0-4 [facility] Comment on above: Order Comment: Name Collection Type:: Clean-Voided Midstream Performed By: #### C BC, CMP, FE and TIBC, CONSTANTINO, [id number] #### [address] ECG 12 lead ECGon 07-14-2024 ECG 12 lead ECG [facility] [place] [address] Electrocardiograph Report Signed Patient: Leandra Fonseca MR#: [id number] : 1990 Acct:[id number] Age/Sex: 34 / F ADM Date: 07/14/24 Loc: ER Room: Type: [facility] ER Attending Dr: Ordering Provider: Sarah [...] sinus rhythm Confirmed by Glenroy Weldon DO ([id number]) on 07/14/2024 8:07:49 PM Referred By: Electronically Signed By: Glenroy Weldon DO Transcribed By: MUS Signed By Glenroy Weldon DO 2006 Normal [facility] Eosinophils Auto (Bld) [#/Vo l]Ordered By: Sarah Dodd on 07-14-2024 Eosinophils (Bld) [#/Vol] Automated eosinophil count 0.0-0.45 [facility] Eosinophils/100 WBC Auto (Bl d)Ordered By: Sarah Dodd on 07-14-2024 Eosinophils/100 WBC (Bld) Automated eosinophil % . [facility] Epithelial cells.squamous [# /area] in Urine sediment by Automated countOrdered By: Sarah Dodd on 07-14-2024 Epithelial cells.squamous Auto (Urine sed) [#/Area] 5-9 [HPF] High 0-2 [facility] Epithelial cells.squamous Auto (Urine sed) [#/Area] Epithelial cells.squamous [#/area] in Urine sediment by Automated count High 0-2 [facility] Erythrocyte distribution wid th Auto (RBC) [Ratio]Ordered By: Sarah Dodd on 07-14-2024 Erythrocyte distribution width (RBC) [Ratio] Erythrocyte distribution width [Ratio] by Automated count 11.9-15.3 [facility] Erythrocyte distribution wid th [Ratio] by Automated countOrdered By: Sarah Dodd on 07-14-2024 Erythrocyte distribution width (RBC) [Ratio] 13.7 % Normal 11.9-15.3 [facility] Comment on above: Performed By: #### C BC, CMP, FE and TIBC, CONSTANTINO, [id number] #### [facility] [address] Erythrocytes [#/area] in Uri ne sediment by Automated countOrdered By: Sarah Dodd on 07-14-2024 RBC Auto (Urine sed) [#/Area] 20-49 [HPF] High 0-4 [facility] RBC Auto (Urine sed) [#/Area] Erythrocytes [#/area] in Urine sediment by Automated count High 0-4 [facility] Erythrocytes [#/volume] in B lood by Automated countOrdered By: Sarah Dodd on 07-14-2024 RBC (Bld) [#/Vol] 4.57 10*6/uL Normal 3.60-5.00 [facility] Comment on above: Performed By: #### C BC, CMP, FE and TIBC, CONSTANTINO, [id number] #### [facility] [address] Globulin Calc (S) [Mass/Vol] Ordered By: Sarah Dodd on 07-14-2024 Globulin (S) [Mass/Vol] Serum globulin measurement by calculation (mass/volume) [facility] Glucose [Mass/volume] in Ser um or PlasmaOrdered By: Sarah Dodd on 07-14-2024 Glucose [Mass/Vol] 88 mg/dL Normal 70-100 [facility] Comment on above: ADA recommended refe rence rangeRandom Glucose Reference Range is dependent on time and content of last meal. Glucose of more than 200 mg/dL in a nonstressed, ambulatory subject supports the diagnosis of Diabetes Mellitus. Result Comment: [place] Glucose Reference Range is dependent on time and content of last meal. Glucose of more than 200 mg/dL in a nonstressed, ambulatory subject supports the diagnosis of Diabetes Mellitus. ADA recommended reference range Performed By: #### C BC, CMP, FE and TIBC, CONSTANTINO, [id number] #### [facility] [address] [place] [id number] [facility] Glucose [Mass/Vol] Glucose [Mass/volume ] in Serum or Plasma 70-100 [facility] Comment on above: ADA recommended refe rence rangeRandom Glucose Reference Range is dependent on time and content of last meal. Glucose of more than 200 mg/dL in a nonstressed, ambulatory subject supports the diagnosis of Diabetes Mellitus. Glucose [Mass/volume] in Uri ne by Test stripOrdered By: Sarah Dodd on 07-14-2024 Glucose Test strip (U) [Mass/Vol] Normal mg/dL Normal [facility] Glucose Test strip (U) [Mass/Vol] Glucose [Mass/volume] in Urine by Test strip [facility] HCG ( test) IA.rapi d Ql (U)Ordered By: ROMMEL BRIGGS on 10-28-2024 HCG ( test) Ql (U) Negative [facility] HCG ( test) Ql (U) Urine human chorionic gonadotropin (hCG) detection by immunoassay [facility] HCG,Urineon 07-14-2024 Beta HCG ( test) Ql (U) Negative Normal [facility] Comment on above: Order Comment: Name Collection Type:: Clean-Voided Midstream Result Comment: PERF ORMED BY: [place] [address] PATHOLOGIST [employer] CLAU ZAVALA M.D. Performed By: #### C BC, CMP, FE and TIBC, CONSTANTINO, [id number] #### [address] Hematocrit Auto (Bld) [Volum e fraction]Ordered By: Sarah Dodd on 07-14-2024 Hematocrit (Bld) [Volume fraction] Hematocrit [Volume Fraction] of Blood by Automated count Low 34.0-46.4 [facility] Hematocrit [Volume Fraction] of Blood by Automated countOrdered By: Sarah Dodd on 07-14-2024 Hematocrit (Bld) [Volume fraction] 33.4 % Low 34.0-46.4 [facility] Comment on above: Performed By: #### C BC, CMP, FE and TIBC, CONSTANTINO, [id number] #### [address] Hemoglobin Test strip Ql (U) Ordered By: Sarah Dodd on 07-14-2024 Hemoglobin Ql (U) 1+ High Negative [facility] Hemoglobin Ql (U) Hemoglobin [Presence ] in Urine by Test strip High Negative [facility] Hemoglobin [Mass/volume] in BloodOrdered By: Sarah Dodd on 07-14-2024 Hemoglobin (Bld) [Mass/Vol] 10.8 g/dL Low 11.8-15.4 [facility] Comment on above: Performed By: #### C BC, CMP, FE and TIBC, CONSTANTINO, [id number] #### [address] Hemoglobin (Bld) [Mass/Vol] Hemoglobin [Mass/volume] in Blood Low 11.8-15.4 [facility] Hepatic Panelon 07-14-2024 Albumin [Mass/Vol] 4.1 g/dL Normal 3.5-5.7 [facility] Comment on above: Performed By: #### C BC, CMP, FE and TIBC, CONSTANTINO, [id number] #### [facility] [address] Bilirubin,Indirect 0.3 mg/dL Normal [facility] Comment on above: Performed By: #### C BC, CMP, FE and TIBC, CONSTANTINO, [id number] #### [facility] [address] Bilirubin.indirect [Mass/Vol] 0.10 mg/dL Normal 0.03-0.18 [facility] Comment on above: Performed By: #### C BC, CMP, FE and TIBC, CONSTANTINO, [id number] #### [facility] [address] [place] [address] [place] Hyaline casts [#/area] in Ur ine sediment by Automated countOrdered By: Sarah Dodd on 07-14-2024 Hyaline casts Auto (Urine sed) [#/Area] None [LPF] 0-8 [facility] Hyaline casts Auto (Urine sed) [#/Area] Hyaline casts [#/area] in Urine sediment by Automated count 0-8 [facility] [facility] Ketones Test strip Ql (U)Ord ered By: Sarah Dodd on 07-14-2024 Ketones Ql (U) Ketones [Presence] i n Urine by Test strip High Negative [facility] Ketones [Presence] in Urine by Test stripOrdered By: Sarah Dodd on 07-14-2024 Ketones Ql (U) 2+ High Negative [facility] Comment on above: Order Comment: Name Collection Type:: Clean-Voided Midstream Performed By: #### C BC, CMP, FE and TIBC, CONSTANTINO, [id number] #### [facility] [address] Leukocyte esterase [Presence ] in Urine by Test stripOrdered By: Sarah Dodd on 07-14-2024 Leukocyte esterase Test strip Ql (U) Negative Normal Negative [facility] Comment on above: Order Comment: Name Collection Type:: Clean-Voided Midstream Performed By: #### C BC, CMP, FE and TIBC, CONSTANTINO, [id number] #### [facility] [address] [place] [address] [place] Leukocyte esterase Test strip Ql (U) Leukocyte esterase [Presence] in Urine by Test strip Negative [facility] Leukocytes [#/area] in Urine sediment by Automated countOrdered By: Sarah Dodd on 07-14-2024 WBC Auto (Urine sed) [#/Area] 5-9 [HPF] High 0-4 [facility] WBC Auto (Urine sed) [#/Area] Leukocytes [#/area] in Urine sediment by Automated count High 0-4 [facility] Leukocytes [#/volume] correc delmer for nucleated erythrocytes in Blood by Automated counOrdered By: Sarah Dodd on 07-14-2024 WBC corrected for nucl RBC Auto (Bld) [#/Vol] 4.3 10*3/uL 3.8-11.6 [facility] WBC corrected for nucl RBC Auto (Bld) [#/Vol] Leukocytes [#/volume] corrected for nucleated erythrocytes in Blood by Automated coun 3.8-11.6 [facility] Leukocytes [#/volume] in Blo od by Automated countOrdered By: Sarah Dodd on 07-14-2024 WBC (Bld) [#/Vol] 4.3 10*3/uL Normal 3.8-11.6 [facility] Comment on above: Performed By: #### C BC, CMP, FE and TIBC, CONSTANTINO, [id number] #### [facility] [address] [place] [address] [place] Lipase [Enzymatic activity/v olume] in Serum or PlasmaOrdered By: Sarah Dodd on 07-14-2024 Lipase [Catalytic activity/Vol] 45.0 U/L Normal 11.0-82.0 [facility] Comment on above: Result Comment: PERF ORMED BY: [place] [address] PATHOLOGIST [employer] CLAU ZAVALA M.D. Performed By: #### C BC, CMP, FE and TIBC, CONSTANTINO, [id number] #### [address] Lipase [Catalytic activity/Vol] Lipase [Enzymatic activity/volume] in Serum or Plasma 11.0-82.0 [facility] Lymphocytes Auto (Bld) [#/Vo l]Ordered By: Sarah Dodd on 07-14-2024 Lymphocytes (Bld) [#/Vol] Lymphocytes [#/volume] in Blood by Automated count 1.00-4.8 [facility] Lymphocytes [#/volume] in Bl ood by Automated countOrdered By: Sarah Dodd on 07-14-2024 Lymphocytes (Bld) [#/Vol] 1.0 10*3/uL Normal 1.00-4.8 [facility] Comment on above: Performed By: #### C BC, CMP, FE and TIBC, CONSTANTINO, [id number] #### [address] Lymphocytes/100 WBC Auto (Bl d)Ordered By: Sarah Dodd on 07-14-2024 Lymphocytes/100 WBC (Bld) Lymphocytes/100 leukocytes in Blood by Automated count . [facility] Lymphocytes/100 leukocytes i n Blood by Automated countOrdered By: Sarah Dodd on 07-14-2024 Lymphocytes/100 WBC (Bld) 23.2 % Normal . [facility] Comment on above: Performed By: #### C BC, CMP, FE and TIBC, CONSTANTINO, [id number] #### [address] MCH Auto (RBC) [Entitic mass ]Ordered By: Sarah Dodd on 07-14-2024 MCH (RBC) [Entitic mass] MCH [Entitic mass] by Automated count Low 24.7-34.3 [facility] MCH [Entitic mass] by Automa delmer countOrdered By: Sarah Dodd on 07-14-2024 MCH (RBC) [Entitic mass] 23.5 pg Low 24.7-34.3 [facility] Comment on above: Performed By: #### C BC, CMP, FE and TIBC, CONSTANTINO, [id number] #### [facility] [address] MCHC Auto (RBC) [Mass/Vol]Or dered By: Sarah Dodd on 07-14-2024 MCHC (RBC) [Mass/Vol] 32.2 g/dL 32.0-35.0 [facility] MCHC (RBC) [Mass/Vol] MCHC [Mass/volume] by Automated count 32.0-35.0 [facility] MCV Auto (RBC) [Entitic vol] Ordered By: Sarah Dodd on 07-14-2024 MCV (RBC) [Entitic vol] MCV [Entitic volume] by Automated count Low 80-100 [facility] MCV [Entitic volume] by Auto mated countOrdered By: Sarah Dodd on 07-14-2024 MCV (RBC) [Entitic vol] 73.1 fL Low 80-100 [facility] Comment on above: Performed By: #### C BC, CMP, FE and TIBC, CONSTANTINO, [id number] #### [facility] [address] Monocyte distribution width [Entitic volume] in Blood by AutomatedOrdered By: Sarah Dodd on 07-14-2024 Monocyte distribution width Auto (Bld) [Entitic vol] 20.43 % High 0.00-20.00 [facility] Comment on above: For adults in ED, MD W > 20.0 may be associated with a higher risk of sepsis during the first 12 hrs of hospital admission Monocyte distribution width Auto (Bld) [Entitic vol] Monocyte distribution width [Entitic volume] in Blood by Automated High 0.00-20.00 [facility] Comment on above: For adults in ED, MD W > 20.0 may be associated with a higher risk of sepsis during the first 12 hrs of hospital admission Monocytes Auto (Bld) [#/Vol] Ordered By: Sarah Dodd on 07-14-2024 Monocytes (Bld) [#/Vol] Automated blood monocyte count 0.0-0.8 [facility] Monocytes/100 WBC Auto (Bld) Ordered By: Sarah Dodd on 07-14-2024 Monocytes/100 WBC (Bld) Automated monocyte % . [facility] Mucus [Presence] in Urine by AutomatedOrdered By: Sarah Dodd on 07-14-2024 Mucus Auto Ql (U) 2+ [LPF] Abnormal [facility] Mucus Auto Ql (U) Mucus [Presence] in Urine by Automated Abnormal [facility] Neutrophils Auto (Bld) [#/Vo l]Ordered By: Sarah Dodd on 07-14-2024 Neutrophils (Bld) [#/Vol] Neutrophils [#/volume] in Blood by Automated count 1.8-7.7 [facility] Neutrophils [#/volume] in Bl ood by Automated countOrdered By: Sarah Dodd on 07-14-2024 Neutrophils (Bld) [#/Vol] 2.7 10*3/uL Normal 1.8-7.7 [facility] Comment on above: Performed By: #### C BC, CMP, FE and TIBC, CONSTANTINO, [id number] #### [facility] [address] Neutrophils/100 WBC Auto (Bl d)Ordered By: Sarah Dodd on 07-14-2024 Neutrophils/100 WBC (Bld) Automated neutrophil % . [facility] Nitrite Test strip Ql (U)Ord ered By: Sarah Dodd on 07-14-2024 Nitrite Ql (U) Negative Negative [facility] Nitrite Ql (U) Nitrite [Presence] i n Urine by Test strip Negative [facility] No Panel InformationOrdered By: Sarah Dodd on 07-14-2024 Estimated GFR (CKD-EPI) > 60.0 mL/Min [facility] Creatinine Clearance (Chem 107.14 [facility] Nucleated erythrocytes [Pres ence] in Blood by Automated countOrdered By: Sarah Dodd on 07-14-2024 Nucleated RBC Auto Ql (Bld) 0.1 /100{WBC} 0-0.5 [facility] Nucleated RBC Auto Ql (Bld) Nucleated erythrocytes [Presence] in Blood by Automated count 0-0.5 [facility] Platelet mean volume Auto (B ld) [Entitic vol]Ordered By: Sarah Dodd on 07-14-2024 Platelet mean volume (Bld) [Entitic vol] Platelet mean volume [Entitic volume] in Blood by Automated count 6.3-10.7 [facility] Platelet mean volume [Entiti c volume] in Blood by Automated countOrdered By: Sarah Dodd on 07-14-2024 Platelet mean volume (Bld) [Entitic vol] 9.1 fL Normal 6.3-10.7 [facility] Comment on above: Performed By: #### C BC, CMP, FE and TIBC, CONSTANTINO, [id number] #### [facility] [address] [place] [address] [place] Platelets Auto (Bld) [#/Vol] Ordered By: Sarah Dodd on 07-14-2024 Platelets (Bld) [#/Vol] Platelets [#/volume] in Blood by Automated count 150-450 [facility] Platelets [#/volume] in Bloo d by Automated countOrdered By: Sarah Dodd on 07-14-2024 Platelets (Bld) [#/Vol] 168 10*3/uL Normal 150-450 [facility] Comment on above: Performed By: #### C BC, CMP, FE and TIBC, CONSTANTINO, [id number] #### [facility] [address] [place] [address] [place] Potassium [Moles/volume] in Serum or PlasmaOrdered By: Sarah Dodd on 07-14-2024 Potassium [Moles/Vol] 3.3 mmol/L Low 3.5-5.1 [facility] Comment on above: Performed By: #### C BC, CMP, FE and TIBC, CONSTANTINO, [id number] #### [facility] [address] [place] [address] [place] Potassium [Moles/Vol] Potassium [Moles/v olume] in Serum or Plasma Low 3.5-5.1 [facility] Protein Test strip (U) [Mass /Vol]Ordered By: Sarah Dodd on 07-14-2024 Protein (U) [Mass/Vol] Protein [Mass/vol ume] in Urine by Test strip High Negative [facility] Protein [Mass/volume] in Ser um or PlasmaOrdered By: aSrah Dodd on 07-14-2024 Protein [Mass/Vol] 7.2 g/dL Normal 6.4-8.9 [facility] Comment on above: Performed By: #### C BC, CMP, FE and TIBC, CONSTANTINO, [id number] #### [facility] [address] [place] [address] Protein [Mass/Vol] Protein [Mass/volume ] in Serum or Plasma 6.4-8.9 [facility] Protein [Mass/volume] in Uri ne by Test stripOrdered By: Sarah Dodd on 07-14-2024 Protein (U) [Mass/Vol] 20 mg/dL High Negative [facility] Comment on above: Order Comment: Name Collection Type:: Clean-Voided Midstream Performed By: #### C BC, CMP, FE and TIBC, CONSTANTINO, [id number] #### [facility] [address] [place] [address] RBC Auto (Bld) [#/Vol]Ordere d By: Sarah Dodd on 07-14-2024 RBC (Bld) [#/Vol] Erythrocytes [#/volu me] in Blood by Automated count 3.60-5.00 [facility] Respiratory specimen influen za A virus, influenza B virus, respiratory syncytical virOrdered By: Sarah Dodd on 07-14-2024 SARS-CoV-2 (COVID-19) RNA HIRAM+probe Ql (Unsp spec) Respiratory specimen influenza A virus, influenza B virus, respiratory syncytical vir [facility] Serum globulin measurement b y calculation (mass/volume)Ordered By: Sarah Dodd on 07-14-2024 Globulin (S) [Mass/Vol] 3.1 g/dL Normal [facility] Comment on above: Performed By: #### C BC, CMP, FE and TIBC, CONSTANTINO, [id number] #### [facility] [address] [place] [address] Serum or plasma albumin/glob ulin mass ratioOrdered By: Sarah Dodd on 07-14-2024 Albumin/Globulin [Mass ratio] 1.3 {ratio} Normal [facility] Comment on above: Performed By: #### C FREDO RACHEL FE and TIBC, CONSTANTINO, [id number] #### [facility] [address] [place] [address] Albumin/Globulin [Mass ratio] Serum or plasma albumin/globulin mass ratio [facility] Serum or plasma anion gap de terminationOrdered By: Sarah Dodd on 07-14-2024 Anion gap [Moles/Vol] 11.1 mmol/L Normal 6.0-15.0 [facility] Comment on above: Performed By: #### C FREDO RACHEL FE and TIBC, CONSTANTINO, [id number] #### [address] Anion gap [Moles/Vol] Serum or plasma an ion gap determination 6.0-15.0 [facility] Serum or plasma non-glucuron idated bilirubin measurement (mass/volume)Ordered By: Sarah Dodd on 07-14-2024 Bilirubin.indirect [Mass/Vol] 0.3 mg/dL [facility] Bilirubin.indirect [Mass/Vol] Serum or plasma non-glucuronidated bilirubin measurement (mass/volume) [facility] Sodium [Moles/volume] in Ser um or PlasmaOrdered By: Sarah Dodd on 07-14-2024 Sodium [Moles/Vol] 138 mmol/L Normal 136-145 [facility] Comment on above: Performed By: #### C FREDO RACHEL FE and TIBC, CONSTANTINO, [id number] #### [facility] [address] [place] [address] Sodium [Moles/Vol] Sodium [Moles/volume ] in Serum or Plasma 136-145 [facility] Specific gravity Test strip (U) [Rel density]Ordered By: Sarah Dodd on 07-14-2024 Specific gravity (U) [Rel density] 1.030 1.001-1.03 0 [facility] Specific gravity (U) [Rel density] Specific gravity of Urine by Test strip 1.001-1.03 0 [facility] Urea nitrogen [Mass/volume] in Serum or PlasmaOrdered By: Sarah Dodd on 07-14-2024 Urea nitrogen [Mass/Vol] 9 mg/dL Normal 04-10 [facility] Comment on above: Performed By: #### C BC, CMP, FE and TIBC, CONSTANTINO, [id number] #### [facility] [address] [place] [address] Urea nitrogen [Mass/Vol] Urea nitrogen [Mass/volume] in Serum or Plasma 04-10 [facility] Urine appearanceOrdered By: Sarah Dodd on 07-14-2024 Appearance (U) Clear Normal Clear [facility] Comment on above: Order Comment: Name Collection Type:: Clean-Voided Midstream Performed By: #### C BC, CMP, FE and TIBC, CONSTANTINO, [id number] #### [facility] [address] [place] [address] Urobilinogen Test strip (U) [Mass/Vol]Ordered By: Sarah Dodd on 07-14-2024 Urobilinogen (U) [Mass/Vol] 3 mg/dL High Normal [facility] Urobilinogen (U) [Mass/Vol] Urobilinogen [Mass/volume] in Urine by Test strip [facility] Normal [facility] WBC Auto (Bld) [#/Vol]Ordere d By: Sarah Dodd on 07-14-2024 WBC (Bld) [#/Vol] Leukocytes [#/volume ] in Blood by Automated count 3.8-11.6 [facility] pH Test strip (U)Ordered By: Sarah Dodd on 07-14-2024 pH (U) pH of Urine by Test strip 5.0-9.0 [facility] pH of Urine by Test stripOrd ered By: Sarah Dodd on 07-14-2024 pH (U) 6.0 [pH] Normal 5.0-9.0 [facility] Comment on above: Order Comment: Name Collection Type:: Clean-Voided Midstream Performed By: #### C BC, CMP, FE and TIBC, CONSTANTINO, [id number] #### [facility] [address] [place] [address] [facility] CHLAMYDIA/GC BY PCRon 2023 CHLAMYDIA/GC [...] collection. Normal [facility] Comment on above: Performed By: #### C GS #### [facility] ([id number]) [address] [place] [address], [address] [place] [address] VAGINITIS PANEL PCRon 2023 VAGINITIS PANEL PCR [...] diagnosis. Normal [facility] Comment on above: Performed By: #### V PPCR #### [facility] ([id number]) [address] [place] [address], [address] [place] [address] B-Type Natriuretic Peptideon 11-24-2023 Natriuretic peptide B (Bld) [Mass/Vol] 13.0 pg/mL Normal 5-100 [facility] Comment on above: Result Comment: PERF ORMED BY: [place] [address] PATHOLOGIST [employer] CLAU ZAVALA M.D. Performed By: #### C BC, CMP, FE and TIBC, CONSTANTINO, [id number] #### [address] Basic Metabolic Panelon 03-0 Anion gap [Moles/Vol] 8.4 mmol/L Normal 6.0-15.0 [facility] Comment on above: Performed By: #### C BC, CMP, FE and TIBC, CONSTANTINO, [id number] #### [address] Calcium [Mass/Vol] 8.8 mg/dL Normal 8.6-10.3 [facility] Comment on above: Performed By: #### C BC, CMP, FE and TIBC, CONSTANTINO, [id number] #### [address] Chloride [Moles/Vol] 104 mmol/L Normal 98-107 [facility] Comment on above: Performed By: #### C BC, CMP, FE and TIBC, CONSTANTINO, [id number] #### [address] CO2 [Moles/Vol] 27.5 mmol/L Normal 21.0-31.0 [facility] Comment on above: Performed By: #### C BC, CMP, FE and TIBC, CONSTANTINO, [id number] #### [address] Creatinine [Mass/Vol] 0.77 mg/dL Normal 0.60-1.20 [facility] Comment on above: Performed By: #### C BC, CMP, FE and TIBC, CONSTANTINO, [id number] #### [address] Creatinine Clr Calc Pharmacy 103.65 Normal [facility] Comment on above: Result Comment: PERF ORMED BY: [place] [address] PATHOLOGIST [employer] CLAU ZAVALA M.D. Performed By: #### C BC, CMP, FE and TIBC, CONSTANTINO, [id number] #### [facility] [address] GFR/1.73 sq M.predicted MDRD (S/P/Bld) [Vol rate/Area] mL/min/{1.73_m2} Normal [facility] Comment on above: Performed By: #### C BC, CMP, FE and TIBC, CONSTANTINO, [id number] #### [address] Glucose [Mass/Vol] 103 mg/dL High 70-100 [facility] Comment on above: Result Comment: [place] Glucose Reference Range is dependent on time and content of last meal. Glucose of more than 200 mg/dL in a nonstressed, ambulatory subject supports the diagnosis of Diabetes Mellitus. ADA recommended reference range Performed By: #### C BC, CMP, FE and TIBC, CONSTANTINO, [id number] #### [address] Potassium [Moles/Vol] 3.9 mmol/L Normal 3.5-5.1 [facility] Comment on above: Performed By: #### C BC, CMP, FE and TIBC, CONSTANTINO, [id number] #### [address] Sodium [Moles/Vol] 136 mmol/L Normal 136-145 [facility] Comment on above: Performed By: #### C BC, CMP, FE and TIBC, CONSTANTINO, [id number] #### [facility] [address] [place] [address] [place] Urea nitrogen [Mass/Vol] 16 mg/dL Normal 7-25 [facility] Comment on above: Performed By: #### C BC, CMP, FE and TIBC, CONSTANTINO, [id number] #### [address] Complete Blood Count Auto Di ffon 11-24-2023 Basophils (Bld) [#/Vol] 0.0 10*3/uL Normal 0.0-0.2 [facility] Comment on above: Result Comment: PERF ORMED BY: [place] [address] PATHOLOGIST [employer] CLAU ZAVALA M.D. Performed By: #### C BC, CMP, FE and TIBC, CONSTANTINO, [id number] #### [address] Basophils/100 WBC (Bld) 0.6 % Normal . [facility] Comment on above: Performed By: #### C BC, CMP, FE and TIBC, CONSTANTINO, [id number] #### [address] Eosinophils (Bld) [#/Vol] 0.1 10*3/uL Normal 0.0-0.45 [facility] Comment on above: Performed By: #### C BC, CMP, FE and TIBC, CONSTANTINO, [id number] #### [address] Eosinophils/100 WBC (Bld) 1.8 % Normal . [facility] Comment on above: Performed By: #### C BC, CMP, FE and TIBC, CONSTANTINO, [id number] #### [address] Erythrocyte distribution width (RBC) [Ratio] 14.3 % Normal 11.9-15.3 [facility] Comment on above: Performed By: #### C BC, CMP, FE and TIBC, CONSTANTINO, [id number] #### [address] Hematocrit (Bld) [Volume fraction] 34.8 % Normal 34.0-46.4 [facility] Comment on above: Performed By: #### C BC, CMP, FE and TIBC, CONSTANTINO, [id number] #### [address] Hemoglobin (Bld) [Mass/Vol] 10.9 g/dL Low 11.8-15.4 [facility] Comment on above: Performed By: #### C BC, CMP, FE and TIBC, CONSTANTINO, [id number] #### [address] Lymphocytes (Bld) [#/Vol] 1.9 10*3/uL Normal 1.00-4.8 [facility] Comment on above: Performed By: #### C BC, CMP, FE and TIBC, CONSTANTINO, [id number] #### [address] Lymphocytes/100 WBC (Bld) 22.7 % Normal . [facility] Comment on above: Performed By: #### C BC, CMP, FE and TIBC, CONSTANTINO, [id number] #### [address] MCH (RBC) [Entitic mass] 23.1 pg Low 24.7-34.3 [facility] Comment on above: Performed By: #### C BC, CMP, FE and TIBC, CONSTANTINO, [id number] #### [address] MCV (RBC) [Entitic vol] 74.1 fL Low 80-100 [facility] Comment on above: Performed By: #### C BC, CMP, FE and TIBC, CONSTANTINO, [id number] #### [address] Mean Corpuscular HGB Conc 31.3 g/dL Low 32.0-35.0 [facility] Comment on above: Performed By: #### C BC, CMP, FE and TIBC, CONSTANTINO, [id number] #### [address] Monocytes (Bld) [#/Vol] 0.5 10*3/uL Normal 0.0-0.8 [facility] Comment on above: Performed By: #### C BC, CMP, FE and TIBC, CONSTANTINO, [id number] #### [address] Monocytes/100 WBC (Bld) 18.34 % Normal 0.00-20.00 [facility] Comment on above: Performed By: #### C BC, CMP, FE and TIBC, CONSTANTINO, [id number] #### [address] Monocytes/100 WBC (Bld) 6.4 % Normal . [facility] Comment on above: Performed By: #### C BC, CMP, FE and TIBC, CONSTANTINO, [id number] #### [address] Neutrophils (Bld) [#/Vol] 5.7 10*3/uL Normal 1.8-7.7 [facility] Comment on above: Performed By: #### C BC, CMP, FE and TIBC, CONSTANTINO, [id number] #### [address] Neutrophils/100 WBC (Bld) 68.5 % Normal . [facility] Comment on above: Performed By: #### C BC, CMP, FE and TIBC, CONSTANTINO, [id number] #### [address] NRBC% 0.1 /100{WBC} Normal 0-0.5 [facility] Comment on above: Performed By: #### C BC, CMP, FE and TIBC, CONSTANTINO, [id number] #### [address] Platelet mean volume (Bld) [Entitic vol] 9.1 fL Normal 6.3-10.7 [facility] Comment on above: Performed By: #### C BC, CMP, FE and TIBC, CONSTANTINO, [id number] #### [address] Platelets (Bld) [#/Vol] 191 10*3/uL Normal 150-450 [facility] Comment on above: Performed By: #### C BC, CMP, FE and TIBC, CONSTANTINO, [id number] #### [address] RBC (Bld) [#/Vol] 4.70 10*6/uL Normal 3.60-5.00 [facility] Comment on above: Performed By: #### C BC, CMP, FE and TIBC, CONSTANTINO, [id number] #### [address] WBC (Bld) [#/Vol] 8.3 10*3/uL Normal 3.8-11.6 [facility] Comment on above: Performed By: #### C BC, CMP, FE and TIBC, CONSTANTINO, [id number] #### [address] Creatine Kinaseon 11-24-2023 CK [Catalytic activity/Vol] 97 U/L Normal 30-223 [facility] Comment on above: Performed By: #### C BC, CMP, FE and TIBC, CONSTANTINO, [id number] #### [address] Dipstick and Microscopicon 0 11-24-2023 Appearance (U) Clear Normal Clear [facility] Comment on above: Order Comment: Name Collection Type:: Clean-Voided Midstream Performed By: #### C BC, CMP, FE and TIBC, CONSTANTINO, [id number] #### [address] Bacteria,Urine None Seen Normal None Seen [facility] Comment on above: Order Comment: Name Collection Type:: Clean-Voided Midstream Performed By: #### C BC, CMP, FE and TIBC, CONSTANTINO, [id number] #### [address] Bilirubin,Urine Negative Normal Negative [facility] Comment on above: Order Comment: Name Collection Type:: Clean-Voided Midstream Performed By: #### C BC, CMP, FE and TIBC, CONSTANTINO, [id number] #### [address] Color (U) Yellow Normal Yellow [facility] Comment on above: Order Comment: Name Collection Type:: Clean-Voided Midstream Performed By: #### C BC, CMP, FE and TIBC, CONSTANTINO, [id number] #### [address] Glucose Ql (U) Normal Normal Normal [facility] Comment on above: Order Comment: Name Collection Type:: Clean-Voided Midstream Performed By: #### C BC, CMP, FE and TIBC, CONSTANTINO, [id number] #### [place] [address] [place] Hyaline Casts,Urine 0-8 Normal 0-8 [facility] Comment on above: Order Comment: Name Collection Type:: Clean-Voided Midstream Performed By: #### C BC, CMP, FE and TIBC, CONSTANTINO, [id number] #### [address] Ketones Ql (U) Negative Normal Negative [facility] Comment on above: Order Comment: Name Collection Type:: Clean-Voided Midstream Performed By: #### C BC, CMP, FE and TIBC, CONSTANTINO, [id number] #### [address] Leukocyte esterase Test strip Ql (U) Negative Normal Negative [facility] Comment on above: Order Comment: Name Collection Type:: Clean-Voided Midstream Performed By: #### C BC, CMP, FE and TIBC, CONSTANTINO, [id number] #### [place] [address] [place] Nitrite,Urine Negative Normal Negative [facility] Comment on above: Order Comment: Name Collection Type:: Clean-Voided Midstream Performed By: #### C BC, CMP, FE and TIBC, CONSTANTINO, [id number] #### [place] [address] [place] Occult Blood,Urine 1+ High Negative [facility] Comment on above: Order Comment: Name Collection Type:: Clean-Voided Midstream Performed By: #### C BC, CMP, FE and TIBC, CONSTANTINO, [id number] #### [address] pH (U) 7.0 [pH] Normal 5.0-9.0 [facility] Comment on above: Order Comment: Name Collection Type:: Clean-Voided Midstream Performed By: #### C BC, CMP, FE and TIBC, CONSTANTINO, [id number] #### [address] Protein,Urine Negative Normal Negative [facility] Comment on above: Order Comment: Name Collection Type:: Clean-Voided Midstream Performed By: #### C BC, CMP, FE and TIBC, CONSTANTINO, [id number] #### [address] RBC,Urine 10-19 High 0-4 [facility] Comment on above: Order Comment: Name Collection Type:: Clean-Voided Midstream Performed By: #### C BC, CMP, FE and TIBC, CONSTANTINO, [id number] #### [address] Specificy [place],Urine 1.022 Normal 1.001-1.03 0 [facility] Comment on above: Order Comment: Name Collection Type:: Clean-Voided Midstream Performed By: #### C BC, CMP, FE and TIBC, CONSTANTINO, [id number] #### [address] Squamous Epithelial Cell,Urine 3-4 High 0-2 [facility] Comment on above: Order Comment: Name Collection Type:: Clean-Voided Midstream Performed By: #### C BC, CMP, FE and TIBC, CONSTANTINO, [id number] #### [address] Urobilinogen,Urine Normal Normal Normal [facility] Comment on above: Order Comment: Name Collection Type:: Clean-Voided Midstream Performed By: #### C BC, CMP, FE and TIBC, CONSTANTINO, [id number] #### [address] WBC,Urine 1-2 Normal 0-4 [facility] Comment on above: Order Comment: Name Collection Type:: Clean-Voided Midstream Performed By: #### C BC, CMP, FE and TIBC, CONSTANTINO, [id number] #### [address] ECG 12 lead ECGon 11-24-2023 ECG 12 lead ECG [facility] Main [place] [address] [place] [address] Electrocardiograph Report Signed Patient: Leandra Fonseca MR#: [id number] 1238 : 1990 Acct:[id number] Age/Sex: 33 / F ADM Date: 11/24/23 Loc: ER Room: Type: [facility] ER Attending Dr: Ordering Provider: Jim [...] was found Confirmed by Jim Vega DO ([id number]) on 11/24/2023 9:23:04 AM Referred By: Electronically Signed By:Jim Vega DO Transcribed By: MUS Signed By Jim Vega DO 4 0923 Normal [facility] HCG,Urineon 11-24-2023 Beta HCG ( test) Ql (U) Negative Normal [facility] Comment on above: Order Comment: Name Collection Type:: Clean-Voided Midstream Result Comment: PERF ORMED BY: [place] [address] PATHOLOGIST [employer] CLAU ZAVALA M.D. Performed By: #### C BC, CMP, FE and TIBC, CONSTANTINO, [id number] #### [address] Hepatic Panelon 11-24-2023 Albumin [Mass/Vol] 4.0 g/dL Normal 3.5-5.7 [facility] Comment on above: Performed By: #### C BC, CMP, FE and TIBC, CONSTANTINO, [id number] #### [address] Albumin/Globulin [Mass ratio] 1.4 {ratio} Normal [facility] Comment on above: Performed By: #### C BC, CMP, FE and TIBC, CONSTANTINO, [id number] #### [address] ALP [Catalytic activity/Vol] 42 U/L Normal 34-104 [facility] Comment on above: Performed By: #### C BC, CMP, FE and TIBC, CONSTANTINO, [id number] #### [address] ALT [Catalytic activity/Vol] 11 U/L Normal 7-52 [facility] Comment on above: Performed By: #### C BC, CMP, FE and TIBC, CONSTANTINO, [id number] #### [address] AST [Catalytic activity/Vol] 12 U/L Low 13-39 [facility] Comment on above: Performed By: #### C BC, CMP, FE and TIBC, CONSTANTINO, [id number] #### [address] Bilirubin [Mass/Vol] 0.4 mg/dL Normal 0.3-1.0 [facility] Comment on above: Performed By: #### C BC, CMP, FE and TIBC, CONSTANTINO, [id number] #### [address] Bilirubin,Indirect 0.3 mg/dL Normal [facility] Comment on above: Performed By: #### C BC, CMP, FE and TIBC, CONSTANTINO, [id number] #### [address] Bilirubin.indirect [Mass/Vol] 0.10 mg/dL Normal 0.03-0.18 [facility] Comment on above: Performed By: #### C BC, CMP, FE and TIBC, CONSTANTINO, [id number] #### [address] Globulin (S) [Mass/Vol] 2.9 g/dL Normal [facility] Comment on above: Performed By: #### C BC, CMP, FE and TIBC, CONSTANTINO, [id number] #### [address] Protein [Mass/Vol] 6.9 g/dL Normal 6.4-8.9 [facility] Comment on above: Performed By: #### C BC, CMP, FE and TIBC, CONSTANTINO, [id number] #### [address] Partial Thromboplastin Timeo n 11-24-2023 aPTT Coag (Bld) [Time] 30.8 s Normal 25.1-36.5 [facility] Comment on above: Result Comment: A he matocrit value greater than 55% may lead to inaccurate results in coagulation testing. Patients having hematocrit values >55% require a special collection tube for coagulation studies. Please contact the laboratory at [phone] for redraw instructions. PERFORMED BY: [place] [address] PATHOLOGIST [employer] CLAU ZAVALA M.D. Performed By: #### C BC, CMP, FE and TIBC, CONSTANTINO, [id number] #### [address] Prothrombin Time INRon 11-23 INR Coag (PPP) [Relative time] 1.1 {INR} Normal [facility] Comment on above: [...] valves: 3 - 4.5 Performed By: #### C BC, CMP, FE and TIBC, CONSTANTINO, [id number] #### [address] PT Coag (PPP) [Time] 12.9 s Normal 9.0-12.9 [facility] Comment on above: Result Comment: A he matocrit value greater than 55% may lead to inaccurate results in coagulation testing. Patients having hematocrit values >55% require a special collection tube for coagulation studies. Please contact the laboratory at [phone] for redraw instructions. Performed By: #### C BC, CMP, FE and TIBC, CONSTANTINO, [id number] #### [address] Troponin I High Sensitivityo n 11-24-2023 Troponin I High Sensitivity < 2.3 Normal 0.0-15.0 [facility] Comment on above: Result Comment: PERF ORMED BY: [place] [address] PATHOLOGIST [employer] CLAU ZAVALA M.D. Performed By: #### C BC, CMP, FE and TIBC, CONSTANTINO, [id number] #### [address] XR chest 1V portableon 11-23 XR chest 1V portable [facility] [address] XRay Report Signed Patient: Leandra Fonseca MR#: [id number] 1238 : 1990 Acct:[id number] Age/Sex: 33 / F ADM Date: 11/24/23 Loc: ER Room: Type: [facility] ER Attending Dr: Copies to: Jim [...] Michell Miller M.D.11/24/2023 11:32 AM Dictation Location: [place] [address] Transcribed By: CHRISTINE 11/24/23 1132 Dictated By: Michell Miller MD 11/24/23 1131 Signed By: 11/24/23 1132 Normal [facility] Basic Metabolic Panel 10-19 Anion gap [Moles/Vol] 11.0 mmol/L Normal 6.0-15.0 [facility] Comment on above: Performed By: #### C BC, CMP, FE and TIBC, CONSTANTINO, [id number] #### [address] Calcium [Mass/Vol] 8.6 mg/dL Normal 8.6-10.3 [facility] Comment on above: Performed By: #### C BC, CMP, FE and TIBC, CONSTANTINO, [id number] #### [place] [address] [place] Chloride [Moles/Vol] 107 mmol/L Normal 98-107 [facility] Comment on above: Performed By: #### C BC, CMP, FE and TIBC, CONSTANTINO, [id number] #### [place] [address] [place] CO2 [Moles/Vol] 22.9 mmol/L Normal 21.0-31.0 [facility] Comment on above: Performed By: #### C BC, CMP, FE and TIBC, CONSTANTINO, [id number] #### [address] Creatinine [Mass/Vol] 0.64 mg/dL Normal 0.60-1.20 [facility] Comment on above: Performed By: #### C BC, CMP, FE and TIBC, CONSTANTINO, [id number] #### [address] Creatinine Clr Calc Pharmacy 124.50 Normal [facility] Comment on above: Performed By: #### C BC, CMP, FE and TIBC, CONSTANTINO, [id number] #### [address] GFR/1.73 sq M.predicted MDRD (S/P/Bld) [Vol rate/Area] mL/min/{1.73_m2} Normal [facility] Comment on above: Performed By: #### C BC, CMP, FE and TIBC, CONSTANTINO, [id number] #### [address] Glucose [Mass/Vol] 94 mg/dL Normal 70-100 [facility] Comment on above: Result Comment: [facility] Glucose Reference Range is dependent on time and content of last meal. Glucose of more than 200 mg/dL in a nonstressed, ambulatory subject supports the diagnosis of Diabetes Mellitus. ADA recommended reference range Performed By: #### C BC, CMP, FE and TIBC, CONSTANTINO, [id number] #### [address] Potassium [Moles/Vol] 3.9 mmol/L Normal 3.5-5.1 [facility] Comment on above: Performed By: #### C BC, CMP, FE and TIBC, CONSTANTINO, [id number] #### [address] Sodium [Moles/Vol] 137 mmol/L Normal 136-145 [facility] Comment on above: Performed By: #### C BC, CMP, FE and TIBC, CONSTANTINO, [id number] #### [address] Urea nitrogen [Mass/Vol] 12 mg/dL Normal 7-25 [facility] Comment on above: Performed By: #### C BC, CMP, FE and TIBC, CONSTANTINO, [id number] #### [facility] [address] [place] [address] [facility] CT abdomen pelvis w conon CT abdomen pelvis w con [facility] Main [place] [address] [place] [id number] Scan Report Signed Patient: Leandra Fonseca MR#: [id number] 1238 : 1990 Acct:[id number] Age/Sex: 33 / F ADM Date: 11/13/23 Loc: ER Room: Type: [facility] ER Attending Dr: Copies to: Frank [...] Rebecca Ybarra M.D.11/13/2023 10:47 AM Dictation Location: [place] [address] Transcribed By: [facility] 11/13/23 1047 Dictated By: Rebecca Ybarra II, MD 11/13/23 1036 Signed By: 11/13/23 1047 Normal [facility] Complete Blood Count Auto Di ffon 11-13-2023 Basophils (Bld) [#/Vol] 0.1 10*3/uL Normal 0.0-0.2 [facility] Comment on above: Result Comment: PERF ORMED BY: [place] [address] PATHOLOGIST [employer] CLAU ZAVALA M.D. Performed By: #### C BC, CMP, FE and TIBC, CONSTANTINO, [id number] #### [address] Basophils/100 WBC (Bld) 0.7 % Normal . [facility] Comment on above: Performed By: #### C BC, CMP, FE and TIBC, CONSTANTINO, [id number] #### [address] Eosinophils (Bld) [#/Vol] 0.1 10*3/uL Normal 0.0-0.45 [facility] Comment on above: Performed By: #### C BC, CMP, FE and TIBC, CONSTANTINO, [id number] #### [address] Eosinophils/100 WBC (Bld) 1.5 % Normal . [facility] Comment on above: Performed By: #### C BC, CMP, FE and TIBC, CONSTANTINO, [id number] #### [address] Erythrocyte distribution width (RBC) [Ratio] 14.6 % Normal 11.9-15.3 [facility] Comment on above: Performed By: #### C BC, CMP, FE and TIBC, CONSTANTINO, [id number] #### [address] Hematocrit (Bld) [Volume fraction] 34.1 % Normal 34.0-46.4 [facility] Comment on above: Performed By: #### C BC, CMP, FE and TIBC, CONSTANTINO, [id number] #### [address] Hemoglobin (Bld) [Mass/Vol] 10.9 g/dL Low 11.8-15.4 [facility] Comment on above: Performed By: #### C BC, CMP, FE and TIBC, CONSTANTINO, [id number] #### [address] Lymphocytes (Bld) [#/Vol] 1.9 10*3/uL Normal 1.00-4.8 [facility] Comment on above: Performed By: #### C BC, CMP, FE and TIBC, CONSTANTINO, [id number] #### [address] Lymphocytes/100 WBC (Bld) 23.7 % Normal . [facility] Comment on above: Performed By: #### C BC, CMP, FE and TIBC, CONSTANTINO, [id number] #### [address] MCH (RBC) [Entitic mass] 23.7 pg Low 24.7-34.3 [facility] Comment on above: Performed By: #### C BC, CMP, FE and TIBC, CONSTANTINO, [id number] #### [address] MCV (RBC) [Entitic vol] 74.1 fL Low 80-100 [facility] Comment on above: Performed By: #### C BC, CMP, FE and TIBC, CONSTANTINO, [id number] #### [address] Mean Corpuscular HGB Conc 31.9 g/dL Low 32.0-35.0 [facility] Comment on above: Performed By: #### C BC, CMP, FE and TIBC, CONSTANTINO, [id number] #### [address] Monocytes (Bld) [#/Vol] 0.5 10*3/uL Normal 0.0-0.8 [facility] Comment on above: Performed By: #### C BC, CMP, FE and TIBC, CONSTANTINO, [id number] #### [address] Monocytes/100 WBC (Bld) 18.59 % Normal 0.00-20.00 [facility] Comment on above: Performed By: #### C BC, CMP, FE and TIBC, CONSTANTINO, [id number] #### [address] Monocytes/100 WBC (Bld) 6.9 % Normal . [facility] Comment on above: Performed By: #### C BC, CMP, FE and TIBC, CONSTANTINO, [id number] #### [address] Neutrophils (Bld) [#/Vol] 5.3 10*3/uL Normal 1.8-7.7 [facility] Comment on above: Performed By: #### C BC, CMP, FE and TIBC, CONSTANTINO, [id number] #### [address] Neutrophils/100 WBC (Bld) 67.2 % Normal . [facility] Comment on above: Performed By: #### C BC, CMP, FE and TIBC, CONSTANTINO, [id number] #### [address] NRBC% 0.1 /100{WBC} Normal 0-0.5 [facility] Comment on above: Performed By: #### C BC, CMP, FE and TIBC, CONSTANTINO, [id number] #### [address] Platelet mean volume (Bld) [Entitic vol] 9.2 fL Normal 6.3-10.7 [facility] Comment on above: Performed By: #### C BC, CMP, FE and TIBC, CONSTANTINO, [id number] #### [address] Platelets (Bld) [#/Vol] 199 10*3/uL Normal 150-450 [facility] Comment on above: Performed By: #### C BC, CMP, FE and TIBC, CONSTANTINO, [id number] #### [address] RBC (Bld) [#/Vol] 4.60 10*6/uL Normal 3.60-5.00 [facility] Comment on above: Performed By: #### C BC, CMP, FE and TIBC, CONSTANTINO, [id number] #### [address] WBC (Bld) [#/Vol] 7.9 10*3/uL Normal 3.8-11.6 [facility] Comment on above: Performed By: #### C BC, CMP, FE and TIBC, CONSTANTINO, [id number] #### [address] Dipstick and Microscopicon 0 11-13-2023 Appearance (U) Clear Normal Clear [facility] Comment on above: Order Comment: Name Collection Type:: Clean-Voided Midstream Performed By: #### C BC, CMP, FE and TIBC, CONSTANTINO, [id number] #### [address] Bacteria,Urine None Seen Normal None Seen [facility] Comment on above: Order Comment: Name Collection Type:: Clean-Voided Midstream Performed By: #### C BC, CMP, FE and TIBC, CONSTANTINO, [id number] #### [address] Bilirubin,Urine Negative Normal Negative [facility] Comment on above: Order Comment: Name Collection Type:: Clean-Voided Midstream Performed By: #### C BC, CMP, FE and TIBC, CONSTANTINO, [id number] #### [address] Color (U) Yellow Normal Yellow [facility] Comment on above: Order Comment: Name Collection Type:: Clean-Voided Midstream Performed By: #### C BC, CMP, FE and TIBC, CONSTANTINO, [id number] #### [address] Glucose Ql (U) Normal Normal Normal [facility] Comment on above: Order Comment: Name Collection Type:: Clean-Voided Midstream Performed By: #### C BC, CMP, FE and TIBC, CONSTANTINO, [id number] #### [address] Hyaline Casts,Urine None Seen Normal 0-8 [facility] Comment on above: Order Comment: Name Collection Type:: Clean-Voided Midstream Performed By: #### C BC, CMP, FE and TIBC, CONSTANTINO, [id number] #### [address] Ketones Ql (U) Negative Normal Negative [facility] Comment on above: Order Comment: Name Collection Type:: Clean-Voided Midstream Performed By: #### C BC, CMP, FE and TIBC, CONSTANTINO, [id number] #### [place] [address] [place] Leukocyte esterase Test strip Ql (U) Negative Normal Negative [facility] Comment on above: Order Comment: Name Collection Type:: Clean-Voided Midstream Performed By: #### C BC, CMP, FE and TIBC, CONSTANTINO, [id number] #### [place] [address] Nitrite,Urine Negative Normal Negative [facility] Comment on above: Order Comment: Name Collection Type:: Clean-Voided Midstream Performed By: #### C BC, CMP, FE and TIBC, CONSTANTINO, [id number] #### [address] Occult Blood,Urine 1+ High Negative [facility] Comment on above: Order Comment: Name Collection Type:: Clean-Voided Midstream Performed By: #### C BC, CMP, FE and TIBC, CONSTANTINO, [id number] #### [address] pH (U) 6.5 [pH] Normal 5.0-9.0 [facility] Comment on above: Order Comment: Name Collection Type:: Clean-Voided Midstream Performed By: #### C BC, CMP, FE and TIBC, CONSTANTINO, [id number] #### [address] Protein,Urine Negative Normal Negative [facility] Comment on above: Order Comment: Name Collection Type:: Clean-Voided Midstream Performed By: #### C BC, CMP, FE and TIBC, CONSTANTINO, [id number] #### [address] RBC,Urine 5-9 High 0-4 [facility] Comment on above: Order Comment: Name Collection Type:: Clean-Voided Midstream Performed By: #### C BC, CMP, FE and TIBC, CONSTANTINO, [id number] #### [address] Specificy [place],Urine 1.011 Normal 1.001-1.03 0 [facility] Comment on above: Order Comment: Name Collection Type:: Clean-Voided Midstream Performed By: #### C BC, CMP, FE and TIBC, CONSTANTINO, [id number] #### [address] Squamous Epithelial Cell,Urine None Seen Normal 0-2 [facility] Comment on above: Order Comment: Name Collection Type:: Clean-Voided Midstream Performed By: #### C BC, CMP, FE and TIBC, CONSTANTINO, [id number] #### [address] Urobilinogen,Urine Normal Normal Normal [facility] Comment on above: Order Comment: Name Collection Type:: Clean-Voided Midstream Performed By: #### C BC, CMP, FE and TIBC, CONSTANTINO, [id number] #### [address] WBC LM.HPF (Urine sed) [#/Area] 0 /[HPF] Normal 0-4 [facility] Comment on above: Order Comment: Name Collection Type:: Clean-Voided Midstream Performed By: #### C BC, CMP, FE and TIBC, CONSTANTINO, [id number] #### [address] HCG,Urineon 11-13-2023 Beta HCG ( test) Ql (U) Negative Normal [facility] Comment on above: Order Comment: Name Collection Type:: Clean-Voided Midstream Result Comment: PERF ORMED BY: [place] [address] PATHOLOGIST [employer] CLAU ZAVALA M.D. Performed By: #### C BC, CMP, FE and TIBC, CONSTANTINO, [id number] #### [address] Hepatic Panelon 11-13-2023 Albumin [Mass/Vol] 4.1 g/dL Normal 3.5-5.7 [facility] Comment on above: Performed By: #### C BC, CMP, FE and TIBC, CONSTANTINO, [id number] #### [address] Albumin/Globulin [Mass ratio] 1.5 {ratio} Normal [facility] Comment on above: Performed By: #### C BC, CMP, FE and TIBC, CONSTANTINO, [id number] #### [address] ALP [Catalytic activity/Vol] 39 U/L Normal 34-104 [facility] Comment on above: Performed By: #### C BC, CMP, FE and TIBC, CONSTANTINO, [id number] #### [address] ALT [Catalytic activity/Vol] 10 U/L Normal 7-52 [facility] Comment on above: Performed By: #### C BC, CMP, FE and TIBC, CONSTANTINO, [id number] #### [address] AST [Catalytic activity/Vol] 12 U/L Low 13-39 [facility] Comment on above: Performed By: #### C BC, CMP, FE and TIBC, CONSTANTINO, [id number] #### [address] Bilirubin [Mass/Vol] 0.4 mg/dL Normal 0.3-1.0 [facility] Comment on above: Performed By: #### C BC, CMP, FE and TIBC, CONSTANTINO, [id number] #### [address] Bilirubin,Indirect 0.3 mg/dL Normal [facility] Comment on above: Performed By: #### C BC, CMP, FE and TIBC, CONSTANTINO, [id number] #### [address] Bilirubin.indirect [Mass/Vol] 0.10 mg/dL Normal 0.03-0.18 [facility] Comment on above: Performed By: #### C BC, CMP, FE and TIBC, CONSTANTINO, [id number] #### [address] Globulin (S) [Mass/Vol] 2.8 g/dL Normal [facility] Comment on above: Performed By: #### C BC, CMP, FE and TIBC, CONSTANTINO, [id number] #### [address] Protein [Mass/Vol] 6.9 g/dL Normal 6.4-8.9 [facility] Comment on above: Performed By: #### C BC, CMP, FE and TIBC, CONSTANTINO, [id number] #### [place] [id number] [facility] Lipaseon 11-13-2023 Lipase [Catalytic activity/Vol] 39.0 U/L Normal 11.0-82.0 [facility] Comment on above: Result Comment: PERF ORMED BY: [place] [address] PATHOLOGIST [employer] SUPERVISOR CLAU ZAVALA M.D. Performed By: #### C BC, CMP, FE and TIBC, CONSTANTINO, [id number] #### [place] [id number] [facility] Partial Thromboplastin Timeo n 11-13-2023 aPTT Coag (Bld) [Time] 29.8 s Normal 25.1-36.5 Th e [facility] Comment on above: Result Comment: A he matocrit value greater than 55% may lead to inaccurate results in coagulation testing. Patients having hematocrit values >55% require a special collection tube for coagulation studies. Please contact the laboratory at [phone] for redraw instructions. PERFORMED BY: [place] [address] PATHOLOGIST [employer] SUPER[employer]OR CLAU ZAVALA M.D. Performed By: #### C BC, CMP, FE and TIBC, CONSTANTINO, [id number] #### [place] [id number] [facility] Prothrombin Time INRon 11-13 INR Coag (PPP) [Relative time] 1.0 {INR} Normal [facility] Comment on above: [...] valves: 3 - 4.5 Performed By: #### C BC, CMP, FE and TIBC, OCNSTANTINO, [id number] #### [address] PT Coag (PPP) [Time] 12.0 s Normal 9.0-12.9 [facility] Comment on above: Result Comment: A he matocrit value greater than 55% may lead to inaccurate results in coagulation testing. Patients having hematocrit values >55% require a special collection tube for coagulation studies. Please contact the laboratory at [phone] for redraw instructions. Performed By: #### C BC, CMP, FE and TIBC, CONSTANTINO, [id number] #### [address] Physician Referral[facility] Physician Referral [phone] [id number] Normal [facility] Alanine aminotransferase [En zymatic activity/volume] in Serum or PlasmaOrdered By: Kelly Hough on 09-27-2023 ALT [Catalytic activity/Vol] 9 U/L Normal 7-52 [facility] Comment on above: Performed By: #### C BC, CMP, FE and TIBC, CONSTANTINO, [id number] #### [address] Albumin [Mass/volume] in Ser um or Plasma by Bromocresol green (BCG) dye binding methoOrdered By: Kelly Hough on 09-27-2023 Albumin BCG dye [Mass/Vol] 4.3 g/dL 3.5-5.7 [facility] Alkaline phosphatase [Enzyma tic activity/volume] in Serum or PlasmaOrdered By: Kelly Hough on 09-27-2023 ALP [Catalytic activity/Vol] 41 U/L Normal 34-104 [facility] Comment on above: Performed By: #### C BC, CMP, FE and TIBC, CONSTANTINO, [id number] #### [address] Aspartate aminotransferase [ Enzymatic activity/volume] in Serum or PlasmaOrdered By: Kelly Hough on 09-27-2023 AST [Catalytic activity/Vol] 10 U/L Low 13-39 [facility] Comment on above: Performed By: #### C BC, CMP, FE and TIBC, CONSTANTINO, [id number] #### [address] Automated basophil %Ordered By: Kelly Ryannemesio on 09-27-2023 Basophils/100 WBC (Bld) 0.3 % Normal . [facility] Comment on above: Performed By: #### C BC, CMP, FE and TIBC, CONSTANTINO, [id number] #### [address] Automated basophil countOrde red By: Kelly Ryannemesio on 09-27-2023 Basophils (Bld) [#/Vol] 0.0 10*3/uL Normal 0.0-0.2 [facility] Comment on above: Result Comment: PERF ORMED BY: [place] [address] PATHOLOGIST [employer]PER[employer] CLAU ZAVLAA M.D. Performed By: #### C BC, CMP, FE and TIBC, CONSTANTINO, [id number] #### [address] Automated blood monocyte cou ntOrdered By: Kelly Ryannemesio on 09-27-2023 Monocytes (Bld) [#/Vol] 0.4 10*3/uL Normal 0.0-0.8 [facility] Comment on above: Performed By: #### C BC, CMP, FE and TIBC, CONSTANTINO, [id number] #### [address] Automated eosinophil %Ordere d By: Kelly Ryannemesio on 09-27-2023 Eosinophils/100 WBC (Bld) 0.8 % Normal . [facility] Comment on above: Performed By: #### C BC, CMP, FE and TIBC, CONSTANTINO, [id number] #### [address] Automated eosinophil countOr dered By: Kelly Hough on 09-27-2023 Eosinophils (Bld) [#/Vol] 0.1 10*3/uL Normal 0.0-0.45 [facility] Comment on above: Performed By: #### C BC, CMP, FE and TIBC, CONSTANTINO, [id number] #### [facility] [address] Automated monocyte %Ordered By: Kelly Ryanmagnoliacristel on 09-27-2023 Monocytes/100 WBC (Bld) 5.3 % Normal . [facility] Comment on above: Performed By: #### C BC, CMP, FE and TIBC, CONSTANTINO, [id number] #### [facility] [address] Automated neutrophil %Ordere d By: Kelly Ryannemesio on 09-27-2023 Neutrophils/100 WBC (Bld) 68.9 % Normal . [facility] Comment on above: Performed By: #### C BC, CMP, FE and TIBC, CONSTANTINO, [id number] #### [address] Bilirubin.total [Mass/volume ] in Serum or PlasmaOrdered By: Kelly Ryannemesio on 09-27-2023 Bilirubin [Mass/Vol] 0.7 mg/dL Normal 0.3-1.0 [facility] Comment on above: Performed By: #### C BC, CMP, FE and TIBC, CONSTANTINO, [id number] #### [address] Calcium [Mass/volume] in Ser um or PlasmaOrdered By: Kelly Ryannemesio on 09-27-2023 Calcium [Mass/Vol] 9.0 mg/dL Normal 8.6-10.3 [facility] Comment on above: Performed By: #### C BC, CMP, FE and TIBC, CONSTANTINO, [id number] #### [address] Carbon dioxide, total [Moles /volume] in Serum or PlasmaOrdered By: Kelly Hough on 09-27-2023 CO2 [Moles/Vol] 29.3 mmol/L Normal 21.0-31.0 [facility] Comment on above: Performed By: #### C BC, CMP, FE and TIBC, CONSTANTINO, [id number] #### [address] Chloride [Moles/volume] in S salas or PlasmaOrdered By: Kelly Hough on 09-27-2023 Chloride [Moles/Vol] 107 mmol/L Normal 98-107 [facility] Comment on above: Performed By: #### C BC, CMP, FE and TIBC, CONSTANTINO, [id number] #### [address] Complete Blood Count Auto Di ffon 09-27-2023 Mean Corpuscular HGB Conc 31.6 g/dL Low 32.0-35.0 [facility] Comment on above: Performed By: #### C BC, CMP, FE and TIBC, CONSTANTINO, [id number] #### [address] NRBC% 0.1 /100{WBC} Normal 0-0.5 [facility] Comment on above: Performed By: #### C BC, CMP, FE and TIBC, CONSTANTINO, [id number] #### [address] Comprehensive Metabolic Pane tommie 09-27-2023 Albumin [Mass/Vol] 4.3 g/dL Normal 3.5-5.7 [facility] Comment on above: Performed By: #### C BC, CMP, FE and TIBC, CONSTANTINO, [id number] #### [address] Creatinine Clr Calc Pharmacy 105.57 Normal [facility] Comment on above: Performed By: #### C BC, CMP, FE and TIBC, CONSTANTINO, [id number] #### [address] GFR/1.73 sq M.predicted MDRD (S/P/Bld) [Vol rate/Area] mL/min/{1.73_m2} Normal [facility] Comment on above: Performed By: #### C BC, CMP, FE and TIBC, CONSTANTINO, [id number] #### [facility] [address] Creatinine [Mass/volume] in Serum or PlasmaOrdered By: Kelly France on 09-27-2023 Creatinine [Mass/Vol] 0.72 mg/dL Normal 0.60-1.20 [facility] Comment on above: Performed By: #### C BC, CMP, FE and TIBC, CONSTANTINO, [id number] #### [address] Erythrocyte distribution wid th [Ratio] by Automated countOrdered By: Kelly France on 09-27-2023 Erythrocyte distribution width (RBC) [Ratio] 13.7 % Normal 11.9-15.3 [facility] Comment on above: Performed By: #### C BC, CMP, FE and TIBC, CONSTANTINO, [id number] #### [place] [address] [place] Erythrocytes [#/volume] in B lood by Automated countOrdered By: Kelly France on 09-27-2023 RBC (Bld) [#/Vol] 4.68 10*6/uL Normal 3.60-5.00 [facility] Comment on above: Performed By: #### C BC, CMP, FE and TIBC, CONSTANTINO, [id number] #### [place] [address] [place] Ferritin [Mass/volume] in Se rum or PlasmaOrdered By: Kelly France on 09-27-2023 Ferritin [Mass/Vol] 171.3 ng/mL Normal 11.0-306.8 [facility] Comment on above: Performed By: #### C BC, CMP, FE and TIBC, CONSTANTINO, [id number] #### [address] Folate [Mass/volume] in Seru m or PlasmaOrdered By: Kelly Ryannemesio on 09-27-2023 Folate [Mass/Vol] 5.5 ng/mL >5.9 [facility] Comment on above: Folate reference ran ge: >5.9 ng/mlThe WHO technical consultation on folate and vitamin [id number] has determined that folate concentrations lessthan 4 ng/ml are considered deficient. Glucose [Mass/volume] in Ser um or PlasmaOrdered By: Kelly France on 09-27-2023 Glucose [Mass/Vol] 113 mg/dL High 70-100 [facility] Comment on above: ADA recommended refe rence rangeRandom Glucose Reference Range is dependent on time and content of last meal. Glucose of more than 200 mg/dL in a nonstressed, ambulatory subject supports the diagnosis of Diabetes Mellitus. Result Comment: [place] om Glucose Reference Range is dependent on time and content of last meal. Glucose of more than 200 mg/dL in a nonstressed, ambulatory subject supports the diagnosis of Diabetes Mellitus. ADA recommended reference range Performed By: #### C BC, CMP, FE and TIBC, CONSTANTINO, [id number] #### [facility] [address] HIV 1/O/2 Antigen/Antibodyon 09-27-2023 HIV Screen 4th Generation Non-Reactive Normal Non Reactive [facility] Comment on above: Order Comment: Reaso n for Exam Screening for STD (sexually transmitted disease) Result Comment: HIV Negative HIV-1/HIV-2 antibodies and HIV-1 p24 antigen were NOT detected. There is no laboratory evidence of HIV infection. Performed at: - [address] [id number] Analysis Or Research Safety Inspector: Alan Macias PhD, Phone: [phone] Performed By: #### C BC, CMP, FE and TIBC, CONSTANTINO, [id number] #### [facility] [address] HIV 1 and HIV-2 antibody ass ay with HIV-1 p24 antigen detectionOrdered By: Yudelka Lopez on 09-27-2023 HIV 1+2 Ab+HIV1 p24 Ag IA Ql Non-Reactive Non Reactive [facility] Comment on above: HIV NegativeHIV-1/HI V-2 antibodies and HIV-1 p24 antigen were NOTdetected. There is no laboratory evidence of HIV infection.Performed at: - [address] [id number] Director: Alan Macias PhD, Phone: [phone] Hematocrit [Volume Fraction] of Blood by Automated countOrdered By: Kelly Hough on 09-27-2023 Hematocrit (Bld) [Volume fraction] 34.8 % Normal 34.0-46.4 [facility] Comment on above: Performed By: #### C BC, CMP, FE and TIBC, CONSTANTINO, [id number] #### [address] Hemoglobin [Mass/volume] in BloodOrdered By: Kelly Ryannemesio on 09-27-2023 Hemoglobin (Bld) [Mass/Vol] 11.0 g/dL Low 11.8-15.4 [facility] Comment on above: Performed By: #### C BC, CMP, FE and TIBC, CONSTANTINO, [id number] #### [facility] [address] [place] [address] Iron [Mass/volume] in Serum or PlasmaOrdered By: Kelly Ryannemesio on 09-27-2023 Iron [Mass/Vol] 59 ug/dL Normal 50-212 [facility] Comment on above: Performed By: #### C BC, CMP, FE and TIBC, CONSTANTINO, [id number] #### [facility] [address] [place] [address] Iron and TIBC Profileon 09-17 % Iron Saturation 25.5 % Normal 20-50 [facility] Comment on above: Performed By: #### C BC, CMP, FE and TIBC, CONSTANTINO, [id number] #### [address] Total Iron Binding Capacity 231 ug/dL Low 255-450 [facility] Comment on above: Performed By: #### C BC, CMP, FE and TIBC, CONSTANTINO, [id number] #### [address] Iron binding capacity [Mass/ volume] in Serum or PlasmaOrdered By: Kelly France on 09-27-2023 Iron binding capacity [Mass/Vol] 231 ug/dL 255-450 [facility] Iron saturation [Mass Fracti on] in Serum or PlasmaOrdered By: Kelly France on 09-27-2023 Iron saturation [Mass fraction] 25.5 % 20-50 [facility] Leukocytes [#/volume] correc delmer for nucleated erythrocytes in Blood by Automated counOrdered By: Kelly France on 09-27-2023 WBC corrected for nucl RBC Auto (Bld) [#/Vol] 8.3 10*3/uL 3.8-11.6 [facility] Leukocytes [#/volume] in Blo od by Automated countOrdered By: Kelly France on 09-27-2023 WBC (Bld) [#/Vol] 8.3 10*3/uL Normal 3.8-11.6 [facility] Comment on above: Performed By: #### C BC, CMP, FE and TIBC, CONSTANTINO, [id number] #### [facility] [address] [place] [address] [place] Lymphocytes [#/volume] in Bl ood by Automated countOrdered By: Kelly France on 09-27-2023 Lymphocytes (Bld) [#/Vol] 2.1 10*3/uL Normal 1.00-4.8 [facility] Comment on above: Performed By: #### C BC, CMP, FE and TIBC, CONSTANTINO, [id number] #### [facility] [address] [place] [address] [place] Lymphocytes/100 leukocytes i n Blood by Automated countOrdered By: Kelly France on 09-27-2023 Lymphocytes/100 WBC (Bld) 24.7 % Normal . [facility] Comment on above: Performed By: #### C BC, CMP, FE and TIBC, CONSTANTINO, [id number] #### [facility] [address] [place] [address] [place] MCH [Entitic mass] by Automa delmer countOrdered By: Kelly France on 09-27-2023 MCH (RBC) [Entitic mass] 23.5 pg Low 24.7-34.3 [facility] Comment on above: Performed By: #### C BC, CMP, FE and TIBC, CONSTANTINO, [id number] #### [address] MCHC Auto (RBC) [Mass/Vol]Or dered By: Kelly Hough on 09-27-2023 MCHC (RBC) [Mass/Vol] 31.6 g/dL 32.0-35.0 [facility] MCV [Entitic volume] by Auto mated countOrdered By: Kelly Hough on 09-27-2023 MCV (RBC) [Entitic vol] 74.4 fL Low 80-100 [facility] Comment on above: Performed By: #### C BC, CMP, FE and TIBC, CONSTANTINO, [id number] #### [facility] [address] [place] [address] Neutrophils [#/volume] in Bl ood by Automated countOrdered By: Kelly Hough on 09-27-2023 Neutrophils (Bld) [#/Vol] 5.8 10*3/uL Normal 1.8-7.7 [facility] Comment on above: Performed By: #### C BC, CMP, FE and TIBC, CONSTANTINO, [id number] #### [address] No Panel InformationOrdered By: Kelly Hough on 09-27-2023 Estimated GFR (CKD-EPI) > 60.0 mL/Min [facility] Creatinine Clearance (Chem 105.57 [facility] Nucleated erythrocytes [Pres ence] in Blood by Automated countOrdered By: Kelly Hough on 09-27-2023 Nucleated RBC Auto Ql (Bld) 0.1 /100{WBC} 0-0.5 [facility] Platelet mean volume [Entiti c volume] in Blood by Automated countOrdered By: Kelly Hough on 09-27-2023 Platelet mean volume (Bld) [Entitic vol] 9.3 fL Normal 6.3-10.7 [facility] Comment on above: Performed By: #### C BC, CMP, FE and TIBC, CONSTANTINO, [id number] #### [facility] [address] [place] [address] [place] Platelets [#/volume] in Bloo d by Automated countOrdered By: Kelly Hough on 09-27-2023 Platelets (Bld) [#/Vol] 197 10*3/uL Normal 150-450 [facility] Comment on above: Performed By: #### C BC, CMP, FE and TIBC, CONSTANTINO, [id number] #### [address] Potassium [Moles/volume] in Serum or PlasmaOrdered By: Kelly Ryannemesio on 09-27-2023 Potassium [Moles/Vol] 3.4 mmol/L Low 3.5-5.1 [facility] Comment on above: Performed By: #### C BC, CMP, FE and TIBC, CONSTANTINO, [id number] #### [place] [address] [place] Protein [Mass/volume] in Ser um or PlasmaOrdered By: Kelly Ryannemesio on 09-27-2023 Protein [Mass/Vol] 6.8 g/dL Normal 6.4-8.9 [facility] Comment on above: Performed By: #### C BC, CMP, FE and TIBC, CONSTANTINO, [id number] #### [facility] [address] [place] [address] [place] RPR w/rfx to Quant TP Abson 09-27-2023 RPR, Rfx Quant RPR Non-Reactive Normal Non Reactive [facility] Comment on above: Order Comment: Name Collection Type:: Clean-Voided Midstream Result Comment: Perf ormed at: CB - [facility] [address] [id number] Analysis Or Research Safety Inspector: Alan Macias PhD, Phone: [phone] PERFORMED BY: [place] [address] PATHOLOGIST [employer] SUPER[employer]OR CLAU ZAVALA M.D. Performed By: #### A JORGE AVENDAÑOCG, URDS #### [facility] [address] [place] [address] [place] Reagin Ab [Presence] in Seru m by RPROrdered By: Yudelka Lopez on 09-27-2023 Reagin Ab RPR Ql (S) Non-Reactive Non Reactive [facility] Comment on above: Performed at: [address] [id number] Director: Aaln Macias PhD, Phone: [phone] Serum globulin measurement b y calculation (mass/volume)Ordered By: Kelly Hough on 09-27-2023 Globulin (S) [Mass/Vol] 2.5 g/dL [facility] Comment on above: Performed By: #### C BC, CMP, FE and TIBC, CONSTANTINO, [id number] #### [address] Serum or plasma albumin/glob ulin mass ratioOrdered By: Kelly Houhg on 09-27-2023 Albumin/Globulin [Mass ratio] 1.7 {ratio} [facility] Comment on above: Performed By: #### C BC, CMP, FE and TIBC, CONSTANTINO, [id number] #### [address] Serum or plasma anion gap de terminationOrdered By: Kelly Hough on 09-27-2023 Anion gap [Moles/Vol] 7.1 mmol/L Normal 6.0-15.0 [facility] Comment on above: Performed By: #### C BC, CMP, FE and TIBC, CONSTANTINO, [id number] #### [facility] [address] [place] [address] [place] Sodium [Moles/volume] in Ser um or PlasmaOrdered By: Kelly Hough on 09-27-2023 Sodium [Moles/Vol] 140 mmol/L Normal 136-145 [facility] Comment on above: Performed By: #### C BC, CMP, FE and TIBC, CONSTANTINO, [id number] #### [place] [address] [place] Transferrin [Mass/volume] in Serum or PlasmaOrdered By: Kelly France on 09-27-2023 Transferrin [Mass/Vol] 165 mg/dL Low 203-362 [facility] Comment on above: Performed By: #### C BC, CMP, FE and TIBC, CONSTANTINO, [id number] #### [address] Urea nitrogen [Mass/volume] in Serum or PlasmaOrdered By: Kelly France on 09-27-2023 Urea nitrogen [Mass/Vol] 10 mg/dL Normal 7-25 [facility] Comment on above: Performed By: #### C BC, CMP, FE and TIBC, CONSTANTINO, [id number] #### [address] Vit. B12/Folate Profileon Folate 5.5 ng/mL Low >5.9 [facility] Comment on above: Result Comment: [place] te reference range: >5.9 ng/ml The WHO technical consultation on folate and vitamin b12 deficiencies has determined that folate concentrations less than 4 ng/ml are considered deficient. PERFORMED BY: [place] [address] PATHOLOGIST [employer] SUPER[employer] CLAU ZAVALA M.D. Performed By: #### C BC, CMP, FE and TIBC, CONSTANTINO, [id number] #### [address] Vitamin B12 ser/plasOrdered By: Kelly France on 09-27-2023 Cobalamin (Vitamin B12) [Mass/Vol] 446 pg/mL Normal 180-914 [facility] Comment on above: Performed By: #### C BC, CMP, FE and TIBC, CONSTANTINO, [id number] #### [address] Absolute reticulocyte countO rdered By: Kelly France on 06-27-2023 Reticulocytes (Bld) [#/Vol] 0.066 10*6/uL 0.024-0.08 4 [facility] Haptoglobin [Mass/volume] in Serum or PlasmaOrdered By: Kelly Hough on 06-27-2023 Haptoglobin [Mass/Vol] 184 mg/dL 44-215 [facility] Lactate dehydrogenase [Enzym atic activity/volume] in Serum or Plasma by Lactate to pyOrdered By: Kelly Hough on 06-27-2023 LDH Lactate to pyruvate reaction [Catalytic activity/Vol] 137 U/L 140-271 [facility] Monocyte %Ordered By: Kelly amaya on 06-27-2023 Monocyte % 145 ug/dL 80-158 [facility] Comment on above: This test was develo ped and its performance characteristicsdetermined by [employer]. It has not been cleared orapproved by the Food and Drug Administration. Detection Limit = 5Performed at: [facility] [address] [id number] Director: Artemio Guillen MD, Phone: [phone] Reticulocytes/100 RBC Auto ( Bld)Ordered By: Kelly Hough on 06-27-2023 Reticulocytes/100 RBC (Bld) 1.4 % 0.5-1.5 [facility] Alanine aminotransferase [En zymatic activity/volume] in Serum or PlasmaOrdered By: Kelly Hough on 06-14-2023 ALT [Catalytic activity/Vol] 13 U/L 7-52 [facility] Albumin [Mass/volume] in Ser um or Plasma by Bromocresol green (BCG) dye binding methoOrdered By: Kelly Hough on 06-14-2023 Albumin BCG dye [Mass/Vol] 3.8 g/dL 3.5-5.7 [facility] Alkaline phosphatase [Enzyma tic activity/volume] in Serum or PlasmaOrdered By: Kelly Hough on 06-14-2023 ALP [Catalytic activity/Vol] 33 U/L 34-104 [facility] Aspartate aminotransferase [ Enzymatic activity/volume] in Serum or PlasmaOrdered By: Kelly Hough on 06-14-2023 AST [Catalytic activity/Vol] 10 U/L 13-39 [facility] Basophils Auto (Bld) [#/Vol] Ordered By: Kelly Hough on 06-14-2023 Basophils (Bld) [#/Vol] 0.0 10*3/uL 0.0-0.2 [facility] Basophils/100 WBC Auto (Bld) Ordered By: Kelly Hough on 06-14-2023 Basophils/100 WBC (Bld) 0.4 % . [facility] Bilirubin.total [Mass/volume ] in Serum or PlasmaOrdered By: Kelly Hough on 06-14-2023 Bilirubin [Mass/Vol] 0.4 mg/dL 0.3-1.0 [facility] Calcium [Mass/volume] in Ser um or PlasmaOrdered By: Kelly Hough on 06-14-2023 Calcium [Mass/Vol] 8.8 mg/dL 8.6-10.3 [facility] Carbon dioxide, total [Moles /volume] in Serum or PlasmaOrdered By: Kelly Hough on 06-14-2023 CO2 [Moles/Vol] 28.5 mmol/L 21.0-31.0 [facility] Chloride [Moles/volume] in S salas or PlasmaOrdered By: Kelly Hough on 06-14-2023 Chloride [Moles/Vol] 104 mmol/L 98-107 [facility] Creatinine [Mass/volume] in Serum or PlasmaOrdered By: Kelly Hough on 06-14-2023 Creatinine [Mass/Vol] 0.82 mg/dL 0.60-1.20 [facility] Eosinophils Auto (Bld) [#/Vo l]Ordered By: Kelly Hough on 06-14-2023 Eosinophils (Bld) [#/Vol] 0.2 10*3/uL 0.0-0.45 [facility] Eosinophils/100 WBC Auto (Bl d)Ordered By: Kelly Hough on 06-14-2023 Eosinophils/100 WBC (Bld) 1.9 % . [facility] Erythrocyte distribution wid th Auto (RBC) [Ratio]Ordered By: Kelly Hough on 06-14-2023 Erythrocyte distribution width (RBC) [Ratio] 13.9 % 11.9-15.3 [facility] Ferritin [Mass/volume] in Se rum or PlasmaOrdered By: Kelly Hough on 06-14-2023 Ferritin [Mass/Vol] 146.0 ng/mL 11.0-306.8 [facility] Globulin Calc (S) [Mass/Vol] Ordered By: Kelly Hough on 06-14-2023 Globulin (S) [Mass/Vol] 2.0 g/dL [facility] Glucose [Mass/volume] in Ser um or PlasmaOrdered By: Kelly Hough on 06-14-2023 Glucose [Mass/Vol] 86 mg/dL 70-100 [facility] Comment on above: ADA recommended refe rence rangeRandom Glucose Reference Range is dependent on time and content of last meal. Glucose of more than 200 mg/dL in a nonstressed, ambulatory subject supports the diagnosis of Diabetes Mellitus. Hematocrit Auto (Bld) [Volum e fraction]Ordered By: Kelly Hough on 06-14-2023 Hematocrit (Bld) [Volume fraction] 32.4 % 34.0-46.4 [facility] Hemoglobin [Mass/volume] in BloodOrdered By: Kelly Hough on 06-14-2023 Hemoglobin (Bld) [Mass/Vol] 10.3 g/dL 11.8-15.4 [facility] Iron [Mass/volume] in Serum or PlasmaOrdered By: Kelly Hough on 06-14-2023 Iron [Mass/Vol] 62 ug/dL 50-212 [facility] Iron binding capacity [Mass/ volume] in Serum or PlasmaOrdered By: Kelly Hough on 06-14-2023 Iron binding capacity [Mass/Vol] 190 ug/dL 255-450 [facility] Iron saturation [Mass Fracti on] in Serum or PlasmaOrdered By: Kelly Hough on 06-14-2023 Iron saturation [Mass fraction] 32.6 % 20-50 [facility] Leukocytes [#/volume] correc delmer for nucleated erythrocytes in Blood by Automated counOrdered By: Kelly Hough on 06-14-2023 WBC corrected for nucl RBC Auto (Bld) [#/Vol] 8.4 10*3/uL 3.8-11.6 [facility] Lymphocytes Auto (Bld) [#/Vo l]Ordered By: Kelly Hough on 06-14-2023 Lymphocytes (Bld) [#/Vol] 2.6 10*3/uL 1.00-4.8 [facility] Lymphocytes/100 WBC Auto (Bl d)Ordered By: Kelly Hough on 06-14-2023 Lymphocytes/100 WBC (Bld) 31.3 % . [facility] MCH Auto (RBC) [Entitic mass ]Ordered By: Kelly Hough on 06-14-2023 MCH (RBC) [Entitic mass] 23.8 pg 24.7-34.3 [facility] MCHC Auto (RBC) [Mass/Vol]Or dered By: Kelly Hough on 06-14-2023 MCHC (RBC) [Mass/Vol] 31.7 g/dL 32.0-35.0 [facility] MCV Auto (RBC) [Entitic vol] Ordered By: Kelly Hough on 06-14-2023 MCV (RBC) [Entitic vol] 75.2 fL 80-100 [facility] Monocytes Auto (Bld) [#/Vol] Ordered By: Kelly Hough on 06-14-2023 Monocytes (Bld) [#/Vol] 0.5 10*3/uL 0.0-0.8 [facility] Monocytes/100 WBC Auto (Bld) Ordered By: Kelly Hough on 06-14-2023 Monocytes/100 WBC (Bld) 5.9 % . [facility] Neutrophils Auto (Bld) [#/Vo l]Ordered By: Kelly Hough on 06-14-2023 Neutrophils (Bld) [#/Vol] 5.1 10*3/uL 1.8-7.7 [facility] Neutrophils/100 WBC Auto (Bl d)Ordered By: Kelly Hough on 06-14-2023 Neutrophils/100 WBC (Bld) 60.5 % . [facility] No Panel InformationOrdered By: Kelly Hough on 06-14-2023 Estimated GFR (CKD-EPI) > 60.0 mL/Min [facility] Creatinine Clearance (Chem 93.10 [facility] Nucleated erythrocytes [Pres ence] in Blood by Automated countOrdered By: Kelly Hough on 06-14-2023 Nucleated RBC Auto Ql (Bld) 0.1 /100{WBC} 0-0.5 [facility] Platelet mean volume Auto (B ld) [Entitic vol]Ordered By: Kelly Hough on 06-14-2023 Platelet mean volume (Bld) [Entitic vol] 9.6 fL 6.3-10.7 [facility] Platelets Auto (Bld) [#/Vol] Ordered By: Kelly Hough on 06-14-2023 Platelets (Bld) [#/Vol] 189 10*3/uL 150-450 [facility] Potassium [Moles/volume] in Serum or PlasmaOrdered By: Kelly Hough on 06-14-2023 Potassium [Moles/Vol] 4.1 mmol/L 3.5-5.1 [facility] Protein [Mass/volume] in Ser um or PlasmaOrdered By: Kelly Hough on 06-14-2023 Protein [Mass/Vol] 5.8 g/dL 6.4-8.9 [facility] RBC Auto (Bld) [#/Vol]Ordere d By: Kelly Hough on 06-14-2023 RBC (Bld) [#/Vol] 4.31 10*6/uL 3.60-5.00 [facility] Serum or plasma albumin/glob ulin mass ratioOrdered By: Kelly Hough on 06-14-2023 Albumin/Globulin [Mass ratio] 1.9 {ratio} [facility] Serum or plasma anion gap de terminationOrdered By: Kelly Hough on 06-14-2023 Anion gap [Moles/Vol] 10.6 mmol/L 6.0-15.0 [facility] Sodium [Moles/volume] in Ser um or PlasmaOrdered By: Kelly Hough on 06-14-2023 Sodium [Moles/Vol] 139 mmol/L 136-145 [facility] Thyrotropin [Units/volume] i n Serum or PlasmaOrdered By: Dayne Horton on 06-14-2023 TSH Qn 1.43 m[IU]/L 0.45-5.33 [facility] Thyroxine (T4) free [Mass/vo lume] in Serum or PlasmaOrdered By: Dayne Horton on 06-14-2023 Free T4 [Mass/Vol] 1.22 ng/dL 0.61-1.12 [facility] Transferrin [Mass/volume] in Serum or PlasmaOrdered By: Kelly Hough on 06-14-2023 Transferrin [Mass/Vol] 136 mg/dL 203-362 [facility] Triiodothyronine (T3) Free [ Mass/volume] in Serum or PlasmaOrdered By: Dayne Horton on 06-14-2023 Free T3 [Mass/Vol] 3.99 pg/mL 2.50-3.90 [facility] Urea nitrogen [Mass/volume] in Serum or PlasmaOrdered By: Kelly Hough on 06-14-2023 Urea nitrogen [Mass/Vol] 11 mg/dL 7- [facility] WBC Auto (Bld) [#/Vol]Ordere d By: Kelly Hough on 06-14-2023 WBC (Bld) [#/Vol] 8.4 10*3/uL 3.8-11.6 [facility] Provider Letteron 04-09-2023 Provider Letter (Inserted Image. Radha ble to display) April 09, 2023 LEANDRA FONSCEA [address] [place] [id number] : 1990 Dear Leandra , We have been trying to reach you with no success. It is important that you return our call regarding your referral from Kelvin Hough_ upon receiving this letter. Also, at the time of your call, please provide us with your current information. Thank you for your prompt attention to this matter. Sincerely, General Surgery [facility] [phone] [facility] Lab Reportson 04-04-2023 Lab Reports [id number]:127 Normal [facility] Physician Referralon 023 Physician Referral [id number]:127 [facility] Albumin [Mass/volume] in Ser um or PlasmaOrdered By: Kelly Hough on 03-21-2023 Albumin [Mass/Vol] 3.6 g/dL 2.9-4.4 [facility] IgA [Mass/volume] in Serum o r PlasmaOrdered By: Kelly France on 03-21-2023 IgA [Mass/Vol] 158 mg/dL 87-352 [facility] IgG [Mass/volume] in Serum o r PlasmaOrdered By: Kelly France on 03-21-2023 IgG [Mass/Vol] 1046 mg/dL [phone] [facility] IgM [Mass/volume] in Serum o r PlasmaOrdered By: Kelly Hough on 03-21-2023 IgM [Mass/Vol] 302 mg/dL 26-217 [facility] Comment on above: Performed at: [facility] [address] [id number] Director: Alan Macias PhD, Phone: [phone] Immunoglobulin light chains. kappa.free [Mass/volume] in SerumOrdered By: Kelly Hough on 03-21-2023 Immunoglobulin light chains.kappa.free (S) [Mass/Vol] 19.2 mg/L 3.3-19.4 [facility] Immunoglobulin light chains. kappa.free/Immunoglobulin light chains.lambda.free [MassOrdered By: Kelly Hough on 03-21-2023 Immunoglobulin light chains.kappa.free/Immu noglobulin light chains.lambda.free (S) [Mass ratio] 1.31 0.26-1.65 [facility] Comment on above: Performed at: [facility] [place] [id number] Director: Alan Macias PhD, Phone: [phone] Immunoglobulin light chains. lambda.free [Mass/volume] in Serum or PlasmaOrdered By: Kelly Hough on 03-21-2023 Immunoglobulin light chains.lambda.free [Mass/Vol] 14.7 mg/L 5.7-26.3 [facility] No Panel InformationOrdered By: Kelly Hough on 03-21-2023 Protein Electrophoresis M-Emanuel Not observed g/dL Not Observed [facility] Protein Electrophoresis Note See comment . [facility] Comment on above: Protein electrophore sis scan will follow via computer,mail, or kiln mechanic delivery. Serum Immunofixation See comment . [facility] Comment on above: No monoclonality det ected. Slides for Pathologist Review Ordered path review [facility] Protein [Mass/volume] in Ser um or PlasmaOrdered By: Kelly Hough on 03-21-2023 Protein [Mass/Vol] 6.5 g/dL 6.0-8.5 [facility] Serum globulin measurement ( mass/volume)Ordered By: Kelly Hough on 03-21-2023 Globulin (S) [Mass/Vol] 2.9 g/dL 2.2-3.9 [facility] Serum or plasma albumin/glob ulin mass ratioOrdered By: Kelly Hough on 03-21-2023 Albumin/Globulin [Mass ratio] 1.2 {ratio} 0.7-1.7 [facility] Serum or plasma alpha 1 glob ulin measurement by electrophoresis (mass/volume)Ordered By: Kelly Hough on 03-21-2023 Alpha 1 globulin Elph [Mass/Vol] 0.3 g/dL 0.0-0.4 [facility] Serum or plasma alpha 2 glob ulin measurement by electrophoresis (mass/volume)Ordered By: Kelly Hough on 03-21-2023 Alpha 2 globulin Elph [Mass/Vol] 0.8 g/dL 0.4-1.0 [facility] Serum or plasma beta globuli n measurement by electrophoresis (mass/volume)Ordered By: Kelly Hough on 03-21-2023 Beta globulin Elph [Mass/Vol] 0.7 g/dL 0.7-1.3 [facility] Serum or plasma gamma globul in measurement by electrophoresis (mass/volume)Ordered By: Kelly Hough on 03-21-2023 Gamma globulin Elph [Mass/Vol] 1.1 g/dL 0.4-1.8 [facility] Alanine aminotransferase [En zymatic activity/volume] in Serum or PlasmaOrdered By: Jim Vega on 02-06-2023 ALT [Catalytic activity/Vol] 10 U/L 7-52 [facility] Albumin [Mass/volume] in Ser um or Plasma by Bromocresol green (BCG) dye binding methoOrdered By: Jim Vega on 02-06-2023 Albumin BCG dye [Mass/Vol] 4.2 g/dL 3.5-5.7 [facility] Alkaline phosphatase [Enzyma tic activity/volume] in Serum or PlasmaOrdered By: Jim Vega on 02-06-2023 ALP [Catalytic activity/Vol] 45 U/L 34-104 [facility] Aspartate aminotransferase [ Enzymatic activity/volume] in Serum or PlasmaOrdered By: Jim Vega on 02-06-2023 AST [Catalytic activity/Vol] 12 U/L 13-39 [facility] Automated erythrocytes count in urine sediment (number/area)Ordered By: Jim Vega on 02-06-2023 RBC Auto (Urine sed) [#/Area] 5-9 [HPF] 0-4 [facility] Automated leukocytes count i n urine sediment (number/area)Ordered By: Jim Vega on 02-06-2023 WBC Auto (Urine sed) [#/Area] 3-4 [HPF] 0-4 [facility] Basophils Auto (Bld) [#/Vol] Ordered By: Jim Vega on 02-06-2023 Basophils (Bld) [#/Vol] 0.0 10*3/uL 0.0-0.2 [facility] Basophils/100 WBC Auto (Bld) Ordered By: Jim Vega on 02-06-2023 Basophils/100 WBC (Bld) 0.7 % . [facility] Bilirubin Test strip Ql (U)O rdered By: Jim Vega on 02-06-2023 Bilirubin Ql (U) Negative Negative [facility] Bilirubin.total [Mass/volume ] in Serum or PlasmaOrdered By: Jim Vega on 02-06-2023 Bilirubin [Mass/Vol] 0.5 mg/dL 0.3-1.0 [facility] Calcium [Mass/volume] in Ser um or PlasmaOrdered By: Jim Vega on 02-06-2023 Calcium [Mass/Vol] 8.5 mg/dL 8.6-10.3 [facility] Carbon dioxide, total [Moles /volume] in Serum or PlasmaOrdered By: Jim Vega on 02-06-2023 CO2 [Moles/Vol] 26.0 mmol/L 21.0-31.0 [facility] Chloride [Moles/volume] in S salas or PlasmaOrdered By: Jim Vega on 02-06-2023 Chloride [Moles/Vol] 105 mmol/L 98-107 [facility] Color Auto (U)Ordered By: Narinder red Silvia on 02-06-2023 Color (U) Yellow Yellow [facility] Creatinine [Mass/volume] in Serum or PlasmaOrdered By: Jim Vega on 02-06-2023 Creatinine [Mass/Vol] 0.78 mg/dL 0.60-1.20 [facility] Eosinophils Auto (Bld) [#/Vo l]Ordered By: Jim Vega on 02-06-2023 Eosinophils (Bld) [#/Vol] 0.1 10*3/uL 0.0-0.45 [facility] Eosinophils/100 WBC Auto (Bl d)Ordered By: Jim Vega on 02-06-2023 Eosinophils/100 WBC (Bld) 2.2 % . [facility] Erythrocyte distribution wid th Auto (RBC) [Ratio]Ordered By: Jim Vega on 02-06-2023 Erythrocyte distribution width (RBC) [Ratio] 14.3 % 11.9-15.3 [facility] Globulin Calc (S) [Mass/Vol] Ordered By: Jim Vega on 02-06-2023 Globulin (S) [Mass/Vol] 3.0 g/dL [facility] Glucose [Mass/volume] in Ser um or PlasmaOrdered By: Jim Vega on 02-06-2023 Glucose [Mass/Vol] 92 mg/dL 70-100 [facility] Comment on above: ADA recommended refe rence rangeRandom Glucose Reference Range is dependent on time and content of last meal. Glucose of more than 200 mg/dL in a nonstressed, ambulatory subject supports the diagnosis of Diabetes Mellitus. HCG ( test) IA.rapi d Ql (U)Ordered By: Jim Vega on 02-06-2023 HCG ( test) Ql (U) Negative [facility] Hematocrit Auto (Bld) [Volum e fraction]Ordered By: Jim Vega on 02-06-2023 Hematocrit (Bld) [Volume fraction] 35.2 % 34.0-46.4 [facility] Hemoglobin [Mass/volume] in BloodOrdered By: Jim Vega on 02-06-2023 Hemoglobin (Bld) [Mass/Vol] 11.0 g/dL 11.8-15.4 [facility] Ketones Auto test strip (U) [Mass/Vol]Ordered By: Jim Vega on 02-06-2023 Ketones (U) [Mass/Vol] Negative Negative Fi [facility] - UrinalysisOrder ed By: Jim Vega on 02-06-2023 Hyaline casts LM Ql (Urine sed) 0-8 [LPF] 0-8 [facility] Leukocytes [#/volume] correc delmer for nucleated erythrocytes in Blood by Automated counOrdered By: Jim Vega on 02-06-2023 WBC corrected for nucl RBC Auto (Bld) [#/Vol] 5.3 10*3/uL 3.8-11.6 [facility] Lymphocytes Auto (Bld) [#/Vo l]Ordered By: Jim Vega on 02-06-2023 Lymphocytes (Bld) [#/Vol] 1.4 10*3/uL 1.00-4.8 [facility] Lymphocytes/100 WBC Auto (Bl d)Ordered By: Jim Vega on 02-06-2023 Lymphocytes/100 WBC (Bld) 25.8 % . [facility] MCH Auto (RBC) [Entitic mass ]Ordered By: Jim Vega on 02-06-2023 MCH (RBC) [Entitic mass] 22.8 pg 24.7-34.3 [facility] MCHC Auto (RBC) [Mass/Vol]Or dered By: Jim Vega on 02-06-2023 MCHC (RBC) [Mass/Vol] 31.1 g/dL 32.0-35.0 [facility] MCV Auto (RBC) [Entitic vol] Ordered By: Jim Vega on 02-06-2023 MCV (RBC) [Entitic vol] 73.2 fL 80-100 [facility] Monocyte distribution width [Entitic volume] in Blood by AutomatedOrdered By: Jim Vega on 02-06-2023 Monocyte distribution width Auto (Bld) [Entitic vol] 18.18 % 0.00-20.00 [facility] Monocytes Auto (Bld) [#/Vol] Ordered By: Jim Vega on 02-06-2023 Monocytes (Bld) [#/Vol] 0.4 10*3/uL 0.0-0.8 [facility] Monocytes/100 WBC Auto (Bld) Ordered By: Jim Vega on 02-06-2023 Monocytes/100 WBC (Bld) 7.1 % . [facility] Neutrophils Auto (Bld) [#/Vo l]Ordered By: Jim Vega on 02-06-2023 Neutrophils (Bld) [#/Vol] 3.4 10*3/uL 1.8-7.7 [facility] Neutrophils/100 WBC Auto (Bl d)Ordered By: Jim Vega on 02-06-2023 Neutrophils/100 WBC (Bld) 64.2 % . [facility] Nitrite Test strip Ql (U)Ord ered By: Jim Vega on 02-06-2023 Nitrite Ql (U) Negative Negative [facility] No Panel InformationOrdered By: Jim Vega on 02-06-2023 Estimated GFR (CKD-EPI) > 60.0 mL/Min [facility] Creatinine Clearance (Chem 100.96 [facility] Nucleated erythrocytes [Pres ence] in Blood by Automated countOrdered By: Jim Vega on 02-06-2023 Nucleated RBC Auto Ql (Bld) 0.1 /100{WBC} 0-0.5 [facility] Platelet mean volume Auto (B ld) [Entitic vol]Ordered By: Jim Vega on 02-06-2023 Platelet mean volume (Bld) [Entitic vol] 9.4 fL 6.3-10.7 [facility] Platelets Auto (Bld) [#/Vol] Ordered By: Jim Vega on 02-06-2023 Platelets (Bld) [#/Vol] 175 10*3/uL 150-450 [facility] Potassium [Moles/volume] in Serum or PlasmaOrdered By: Jim Vega on 02-06-2023 Potassium [Moles/Vol] 3.5 mmol/L 3.5-5.1 [facility] Protein Auto test strip (U) [Mass/Vol]Ordered By: Jim Vega on 02-06-2023 Protein (U) [Mass/Vol] Negative Negative [facility] Protein [Mass/volume] in Ser um or PlasmaOrdered By: Jim Vega on 02-06-2023 Protein [Mass/Vol] 7.2 g/dL 6.4-8.9 [facility] RBC Auto (Bld) [#/Vol]Ordere d By: Jim Vega on 02-06-2023 RBC (Bld) [#/Vol] 4.81 10*6/uL 3.60-5.00 [facility] Serum or plasma albumin/glob ulin mass ratioOrdered By: Jim Vega on 02-06-2023 Albumin/Globulin [Mass ratio] 1.4 {ratio} [facility] Serum or plasma anion gap de terminationOrdered By: Jim Vega on 02-06-2023 Anion gap [Moles/Vol] 9.5 mmol/L 6.0-15.0 [facility] Sodium [Moles/volume] in Ser um or PlasmaOrdered By: Jim Vega on 02-06-2023 Sodium [Moles/Vol] 137 mmol/L 136-145 [facility] Specific gravity Auto test s trip (U) [Rel density]Ordered By: Jim Vega on 02-06-2023 Specific gravity (U) [Rel density] 1.010 1.001-1.03 0 [facility] Squamous epithelial cells de tection in urine sediment by light microscopyOrdered By: Jim Vega on 02-06-2023 Epithelial cells.squamous LM Ql (Urine sed) 5-9 [HPF] 0-2 [facility] Urea nitrogen [Mass/volume] in Serum or PlasmaOrdered By: Jim Vega on 02-06-2023 Urea nitrogen [Mass/Vol] 11 mg/dL 7-25 [facility] Urine bacteria detection by automated methodOrdered By: Jim Vega on 02-06-2023 Bacteria Auto Ql (U) None seen None Seen [facility] Urine clarity by refractomet ry automatedOrdered By: Jim Vega on 02-06-2023 Clarity Refractometry automated (U) Clear Clear [facility] Urine glucose measurement by automated test strip (mass/volume)Ordered By: Jim Vega on 02-06-2023 Glucose Auto test strip (U) [Mass/Vol] Normal mg/dL Normal [facility] Urine hemoglobin detection b y automated test stripOrdered By: Jim Vega on 02-06-2023 Hemoglobin Auto test strip Ql (U) Trace Negative [facility] Urine leukocyte esterase det ection by automated test stripOrdered By: Jim Vega on 02-06-2023 Leukocyte esterase Auto test strip Ql (U) Negative Negative [facility] Urobilinogen Auto test strip (U) [Mass/Vol]Ordered By: Jim Vega on 02-06-2023 Urobilinogen (U) [Mass/Vol] Normal mg/dL Normal [facility] WBC Auto (Bld) [#/Vol]Ordere d By: Jim Vega on 02-06-2023 WBC (Bld) [#/Vol] 5.3 10*3/uL 3.8-11.6 [facility] pH Auto test strip (U)Ordere d By: Jim Vega on 02-06-2023 pH (U) 8.0 [pH] 5.0-9.0 [facility] Ferritin [Mass/volume] in Se rum or PlasmaOrdered By: Kelly Hough on 01-24-2023 Ferritin [Mass/Vol] 64.3 ng/mL 11.0-306.8 [facility] Iron [Mass/volume] in Serum or PlasmaOrdered By: Kelly Hough on 01-24-2023 Iron [Mass/Vol] 85 ug/dL 50-212 [facility] Iron binding capacity [Mass/ volume] in Serum or PlasmaOrdered By: Kelly Hough on 01-24-2023 Iron binding capacity [Mass/Vol] 227 ug/dL 255-450 [facility] Iron saturation [Mass Fracti on] in Serum or PlasmaOrdered By: Kelly Hough on 01-24-2023 Iron saturation [Mass fraction] 37.4 % 20-50 [facility] Transferrin [Mass/volume] in Serum or PlasmaOrdered By: Kelly Hough on 01-24-2023 Transferrin [Mass/Vol] 162 mg/dL 203-362 [facility] Basophils Auto (Bld) [#/Vol] Ordered By: Kelly Hough on 12-25-2022 Basophils (Bld) [#/Vol] 0.0 10*3/uL 0.0-0.2 [facility] Basophils/100 WBC Auto (Bld) Ordered By: Kelly Hough on 12-25-2022 Basophils/100 WBC (Bld) 0.3 % . [facility] C reactive protein [Mass/vol ume] in Serum or PlasmaOrdered By: Jose Shanks on 12-25-2022 CRP [Mass/Vol] < 0.5 mg/dL 0.0-0.5 [facility] Calprotectin [Mass/mass] in StoolOrdered By: Jose Shanks on 12-25-2022 Calprotectin (Stl) [Mass/Mass] 32 ug/g 0-120 [facility] Comment on above: Concentration Interp retation Follow-Up<16 - 50 ug/g Normal None>50 -120 ug/g Borderline Re-evaluate in 4-6 weeks >120 ug/g Abnormal Repeat as clinically indicatedPerformed at: [facility] [address] [id number] Director: Artemio Guillen MD, Phone: [phone] Eosinophils Auto (Bld) [#/Vo l]Ordered By: Kelly Hough on 12-25-2022 Eosinophils (Bld) [#/Vol] 0.1 10*3/uL 0.0-0.45 [facility] Eosinophils/100 WBC Auto (Bl d)Ordered By: Kelly Hough on 12-25-2022 Eosinophils/100 WBC (Bld) 1.1 % . [facility] Erythrocyte distribution wid th Auto (RBC) [Ratio]Ordered By: Kelly Hough on 12-25-2022 Erythrocyte distribution width (RBC) [Ratio] 15.5 % 11.9-15.3 [facility] Erythrocyte sedimentation ra te by Photometric methodOrdered By: Jose Shanks on 12-25-2022 ESR Photometric method (Bld) [Velocity] 32 mm/hr 0-19 [facility] Ferritin [Mass/volume] in Se rum or PlasmaOrdered By: Kelly Hough on 12-25-2022 Ferritin [Mass/Vol] 58.3 ng/mL 11.0-306.8 [facility] Hematocrit Auto (Bld) [Volum e fraction]Ordered By: Kelly Hough on 12-25-2022 Hematocrit (Bld) [Volume fraction] 35.3 % 34.0-46.4 [facility] Hemoglobin [Mass/volume] in BloodOrdered By: Kelly Hough on 12-25-2022 Hemoglobin (Bld) [Mass/Vol] 11.0 g/dL 11.8-15.4 [facility] IgA [Mass/volume] in Serum o r PlasmaOrdered By: Jose Shanks on 12-25-2022 IgA [Mass/Vol] 164 mg/dL 87-352 [facility] Comment on above: Performed at: [address] [id number] Director: Alan Macias PhD, Phone: [phone] Iron [Mass/volume] in Serum or PlasmaOrdered By: Kelly Hough on 12-25-2022 Iron [Mass/Vol] 112 ug/dL 50-212 [facility] Iron binding capacity [Mass/ volume] in Serum or PlasmaOrdered By: Kelly Hough on 12-25-2022 Iron binding capacity [Mass/Vol] 241 ug/dL 255-450 [facility] Iron saturation [Mass Fracti on] in Serum or PlasmaOrdered By: Kelly Hough on 12-25-2022 Iron saturation [Mass fraction] 46.5 % 20-50 [facility] Leukocytes [#/volume] correc delmer for nucleated erythrocytes in Blood by Automated counOrdered By: Kelly Hough on 12-25-2022 WBC corrected for nucl RBC Auto (Bld) [#/Vol] 6.8 10*3/uL 3.8-11.6 [facility] Lymphocytes Auto (Bld) [#/Vo l]Ordered By: Kelly Hough on 12-25-2022 Lymphocytes (Bld) [#/Vol] 1.7 10*3/uL 1.00-4.8 [facility] Lymphocytes/100 WBC Auto (Bl d)Ordered By: Kelly Hough on 12-25-2022 Lymphocytes/100 WBC (Bld) 25.5 % . [facility] MCH Auto (RBC) [Entitic mass ]Ordered By: Kelly Hough on 12-25-2022 MCH (RBC) [Entitic mass] 22.3 pg 24.7-34.3 [facility] MCHC Auto (RBC) [Mass/Vol]Or dered By: Kelly Hough on 12-25-2022 MCHC (RBC) [Mass/Vol] 31.1 g/dL 32.0-35.0 [facility] MCV Auto (RBC) [Entitic vol] Ordered By: Kelly Hough on 12-25-2022 MCV (RBC) [Entitic vol] 71.8 fL 80-100 [facility] Monocytes Auto (Bld) [#/Vol] Ordered By: Kelly Hough on 12-25-2022 Monocytes (Bld) [#/Vol] 0.4 10*3/uL 0.0-0.8 [facility] Monocytes/100 WBC Auto (Bld) Ordered By: Kelly Hough on 12-25-2022 Monocytes/100 WBC (Bld) 6.3 % . [facility] Neutrophils Auto (Bld) [#/Vo l]Ordered By: Kelly Hough on 12-25-2022 Neutrophils (Bld) [#/Vol] 4.5 10*3/uL 1.8-7.7 [facility] Neutrophils/100 WBC Auto (Bl d)Ordered By: Kelly Hough on 12-25-2022 Neutrophils/100 WBC (Bld) 66.8 % . [facility] No Panel InformationOrdered By: Jose Shanks on 12-25-2022 Endomysial IgA Antibody Negative Negative [facility] Nucleated erythrocytes [Pres ence] in Blood by Automated countOrdered By: Kelly Hough on 12-25-2022 Nucleated RBC Auto Ql (Bld) 0.2 /100{WBC} 0-0.5 [facility] Platelet mean volume Auto (B ld) [Entitic vol]Ordered By: Kelly France on 12-25-2022 Platelet mean volume (Bld) [Entitic vol] 9.5 fL 6.3-10.7 [facility] Platelets Auto (Bld) [#/Vol] Ordered By: Kelly France on 12-25-2022 Platelets (Bld) [#/Vol] 191 10*3/uL 150-450 [facility] RBC Auto (Bld) [#/Vol]Ordere d By: Kelly France on 12-25-2022 RBC (Bld) [#/Vol] 4.92 10*6/uL 3.60-5.00 [facility] Serum gliadin peptide IgA an tibody assay (units/volume)Ordered By: Jose Shanks on 12-25-2022 Gliadin peptide IgA Qn (S) 7 units 0-19 [facility] Comment on above: Negative 0 - 19 Weak Positive 20 - 30 Moderate to Strong Positive >30 Serum gliadin peptide IgG an tibody assay (units/volume)Ordered By: Jose Shanks on 12-25-2022 Gliadin peptide IgG Qn (S) 3 units 0-19 [facility] Comment on above: Negative 0 - 19 Weak Positive 20 - 30 Moderate to Strong Positive >30 Serum tissue transglutaminas e (tTG) IgA antibody assay (units/volume)Ordered By: Jose Shanks on 12-25-2022 tTG IgA Qn (S) <2 U/mL 0-3 [facility] Comment on above: Negative 0 - 3 Weak Positive 4 - 10 Positive >10 Tissue Transglutaminase (tTG) has been identified as the endomysial antigen. Studies have demonstr- ated that endomysial IgA antibodies have over 99% specificity for gluten sensitive enteropathy. Serum tissue transglutaminas e (tTG) IgG antibody assay (units/volume)Ordered By: Jose Shanks on 12-25-2022 tTG IgG Qn (S) <2 U/mL 0-5 [facility] Comment on above: Negative 0 - 5 Weak Positive 6 - 9 Positive >9 Thyrotropin [Units/volume] i n Serum or PlasmaOrdered By: Jose Shanks on 12-25-2022 TSH Qn 0.78 m[IU]/L 0.45-5.33 [facility] Thyroxine (T4) free [Mass/vo lume] in Serum or PlasmaOrdered By: Dayne Horton on 12-25-2022 Free T4 [Mass/Vol] 0.93 ng/dL 0.61-1.12 [facility] Transferrin [Mass/volume] in Serum or PlasmaOrdered By: Kelly Hough on 12-25-2022 Transferrin [Mass/Vol] 172 mg/dL 203-362 [facility] Triiodothyronine (T3) Free [ Mass/volume] in Serum or PlasmaOrdered By: Dayne Horton on 12-25-2022 Free T3 [Mass/Vol] 3.54 pg/mL 2.50-3.90 [facility] Vitamin D+Metabolites [Mass/ volume] in Serum or PlasmaOrdered By: Dayne Horton on 12-25-2022 Vitamin D+Metabolites [Mass/Vol] 27.0 ng/mL 30-100 [facility] Comment on above: VITAMIN D STATUS 25( [place])VITAMIN D RANGE (ng/mL) Deficient <20 Insufficient 20 to <30Sufficient 30 to 100Reference: Pam MF,Abelardo NC, Cj GARZA, et al. Evaluation,treatment, and prevention of vitamin D deficiency; an Endocrine Society clinical practice guideline. JCEM. 2010; 96(7):1911-30. WBC Auto (Bld) [#/Vol]Ordere d By: Kelly Hough on 12-25-2022 WBC (Bld) [#/Vol] 6.8 10*3/uL 3.8-11.6 [facility] AMYLASEon 12-07-2022 Amylase [Catalytic activity/Vol] 82 U/L Normal 25-115 [facility] Comment on above: Performed By: #### U MICRO, PREGU, ERUR #### [facility] [address] [address] [address] Adam Mejía CARDIAC REBECCA 3-6on 3 CK [Catalytic activity/Vol] 50 U/L Normal 26-192 [facility] Comment on above: Performed By: #### U MICRO, PREGU, ERUR #### [facility] [address] [place] [address] Dr. Adam Mejía CK.MB [Mass/Vol] ng/mL Normal <=3.60 [facility] Comment on above: Performed By: #### U MICRO, PREGU, ERUR #### [facility] [address] [place] [address] Dr. Adam Mejía HSTROP <4.0 Normal 4.0-51.3 [facility] Comment on above: Result Comment: CUT- OFF POINTS HAVE BEEN ESTABLISHED BASED ON THE FOURTH UNIVERSAL DEFINITIONS OF MYOCARDIAL INFARCTION. THE UPPER REFERENCE LIMIT (URL) OF TROPONIN, DEFINED THE 99TH PERCENTILE OF cTnI DISTRIBUTION IN A REFERENCE POPULATION, HAS BEEN CONFIRMED THE DECISION THRESHOLD FOR VA DIAGNOSIS. Performed By: #### U MICRO, PREGU, ERUR #### [facility] [address] [place] [address] Dr. Adam Mejía CARDIAC REBECCA ADMITon 023 CK [Catalytic activity/Vol] 60 U/L Normal 26-192 [facility] Comment on above: Performed By: #### U MICRO, PREGU, ERUR #### [facility] [address] [place] [address] Dr. Adam Mejía CK.MB [Mass/Vol] ng/mL Normal <=3.60 [facility] Comment on above: Performed By: #### U MICRO, PREGU, ERUR #### [facility] [address] [place] [address] Dr. Adam Mejía HSTROP <4.0 Normal 4.0-51.3 [facility] Comment on above: Result Comment: CUT- OFF POINTS HAVE BEEN ESTABLISHED BASED ON THE FOURTH UNIVERSAL DEFINITIONS OF MYOCARDIAL INFARCTION. THE UPPER REFERENCE LIMIT (URL) OF TROPONIN, DEFINED THE 99TH PERCENTILE OF cTnI DISTRIBUTION IN A REFERENCE POPULATION, HAS BEEN CONFIRMED THE DECISION THRESHOLD FOR VA DIAGNOSIS. Performed By: #### U MICRO, PREGU, ERUR #### [facility] [address] [place] [address] Dr. Adam Mejía OSMIN 17 ng/mL Normal 9-82 [facility] Comment on above: Performed By: #### U MICRO, PREGU, ERUR #### [facility] [address] [place] [address] Dr. Adam Mejía CBC AUTO DIFFon 12-07-2022 BASO # 0.0 103/ul Normal 0.0-0.1 [facility] Comment on above: Performed By: #### U MICRO, PREGU, ERUR #### [facility] [address] [place] [address] Dr. Adam Mejía Basophils/100 WBC (Bld) 0.3 % Normal 0.2-2.0 [facility] Comment on above: Performed By: #### U MICRO, PREGU, ERUR #### [facility] [address] [place] [address] Dr. Adam Mejía EO # 0.2 103/ul Normal 0.0-0.7 [facility] Comment on above: Performed By: #### U MICRO, PREGU, ERUR #### [facility] [address] [place] [address] Dr. Adam Mejía Eosinophils/100 WBC (Bld) 2.5 % Normal 0.9-7.0 [facility] Comment on above: Performed By: #### U MICRO, PREGU, ERUR #### [facility] [address] [place] [address] Dr. Adam Mejía Erythrocyte distribution width (RBC) [Ratio] 15.2 % Critically high 11.0-15.0 [facility] Comment on above: Performed By: #### U MICRO, PREGU, ERUR #### [facility] [address] [place] [address] Dr. Adam Mejía Hematocrit (Bld) [Volume fraction] 34.8 % Critically low 36.0-48.0 [facility] Comment on above: Performed By: #### U MICRO, PREGU, ERUR #### [facility] [address] [place] [address] Dr. Adam Mejía Hemoglobin (Bld) [Mass/Vol] 10.6 g/dL Critically low 12.0-16.0 [facility] Comment on above: Performed By: #### U MICRO, PREGU, ERUR #### [facility] [address] [place] [address] Dr. Adam Mejía IG # 0.02 10e3/ul Normal 0.00-0.03 [facility] Comment on above: Performed By: #### U MICRO, PREGU, ERUR #### [facility] [address] [place] [address] Dr. Adam Mejía IG % 0.2 % Normal 0.0-0.5 [facility] Comment on above: Performed By: #### U MICRO, PREGU, ERUR #### [facility] [address] [place] [address] Dr. Adam Mejía LYMPH # 2.1 103/ul Normal 1.2-3.8 [facility] Comment on above: Performed By: #### U MICRO, PREGU, ERUR #### [facility] [address] [place] [address] Dr. Adam Mejía Lymphocytes/100 WBC (Bld) 23.0 % Normal 20.5-60.0 [facility] Comment on above: Performed By: #### U MICRO, PREGU, ERUR #### [facility] [address] [place] [address] Dr. Adam Mejía MANUAL DIFF REQ NO Normal [facility] Comment on above: Performed By: #### U MICRO, PREGU, ERUR #### [facility] [address] [place] [address] Dr. Adam Mejía MCH (RBC) [Entitic mass] 22.5 pg Critically low 26.7-34.0 [facility] Comment on above: Performed By: #### U MICRO, PREGU, ERUR #### [facility] [address] [place] [address] Dr. Adam Mejía MCHC (RBC) [Mass/Vol] 30.5 g/dL Normal 29.9-35.2 [facility] Comment on above: Performed By: #### U MICRO, PREGU, ERUR #### [facility] [address] [address] [address] Adam Mejía MCV (RBC) [Entitic vol] 73.9 fL Critically low 81.0-99.0 [facility] Comment on above: Performed By: #### U MICRO, PREGU, ERUR #### [facility] [address] [address] [address] Adam Mejía MONO # 0.5 103/ul Normal 0.3-0.8 [facility] Comment on above: Performed By: #### U MICRO, PREGU, ERUR #### [facility] [address] [place] [address] Dr. Adam Mejía Monocytes/100 WBC (Bld) 5.8 % Normal 1.7-12.0 [facility] Comment on above: Performed By: #### U MICRO, PREGU, ERUR #### [facility] [address] [place] [address] Dr. Adam Mejía NEUT # 6.3 103/ul Normal 1.4-6.5 [facility] Comment on above: Performed By: #### U MICRO, PREGU, ERUR #### [facility] [address] [place] [address] Dr. Adam Mejía Neutrophils/100 WBC (Bld) 68.2 % Normal 43.0-75.0 [facility] Comment on above: Performed By: #### U MICRO, PREGU, ERUR #### [facility] [address] [place] [address] Dr. Adam Mejaí Platelet mean volume (Bld) [Entitic vol] 11.8 fL Normal 9.5-13.5 [facility] Comment on above: Performed By: #### U MICRO, PREGU, ERUR #### [facility] [address] [place] [address] Dr. Adam Mejía PLT 250 103/ul Normal 150-450 [facility] Comment on above: Performed By: #### U MICRO, PREGU, ERUR #### [facility] [address] [place] [address] Dr. Adam Mejía RBC 4.71 106/ul Normal 4.20-5.40 [facility] Comment on above: Performed By: #### U MICRO, PREGU, ERUR #### [facility] [address] [address] [address] Adam Mejía WBC 9.2 103/ul Normal 4.0-11.0 [facility] Comment on above: Performed By: #### U MICRO, PREGU, ERUR #### [facility] [address] [address] [address] Adam Mejía ER URINE PROFILEon 3 Bilirubin Ql (U) Negative Normal NEGATIVE [facility] Comment on above: Performed By: #### U MICRO, PREGU, ERUR #### [facility] [address] [place] [address] Dr. Adam Meíja Clarity (U) CLEAR Normal CLEAR [facility] Comment on above: Performed By: #### U MICRO, PREGU, ERUR #### [facility] [address] [place] [address] Dr. Adam Mejía Color (U) LT. YELLOW Normal YELLOW [facility] Comment on above: Performed By: #### U MICRO, PREGU, ERUR #### [facility] [address] [place] [address] Dr. Adam CLEMENTS A micrscopic examina tion will be performed if indicated. Normal [facility] Comment on above: Performed By: #### U MICRO, PREGU, ERUR #### [facility] [address] [address] [address] Adam Mejía Glucose Ql (U) Negative Normal NEGATIVE [facility] Comment on above: Performed By: #### U MICRO, PREGU, ERUR #### [facility] [address] [address] [address] Adam Mejía Hemoglobin Ql (U) SMALL Abnormal NEGATIVE [facility] Comment on above: Performed By: #### U MICRO, PREGU, ERUR #### [facility] [address] [place] [address] Dr. Adam Mejía Ketones Ql (U) Negative Normal NEGATIVE [facility] Comment on above: Performed By: #### U MICRO, PREGU, ERUR #### [facility] [address] [address] [address] Adam Mejía LEUKOCYTES Negative Normal NEGATIVE [facility] Comment on above: Performed By: #### U MICRO, PREGU, ERUR #### [facility] [address] [address] [address] Adam Mejía Nitrite Ql (U) Negative Normal NEGATIVE [facility] Comment on above: Performed By: #### U MICRO, PREGU, ERUR #### [facility] [address] [address] [address] Adam Mejía pH (U) 8.0 [pH] Normal 5-9 [facility] Comment on above: Performed By: #### U MICRO, PREGU, ERUR #### [facility] [address] [place] [address] Dr. Adam Mejía SPEC GRAVITY 1.010 Normal 1.005-<=1. 025 [facility] Comment on above: Performed By: #### U MICRO, PREGU, ERUR #### [facility] [address] [place] [address] Dr. Adam Mejía UA PROTEIN Negative Normal NEGATIVE/ TRACE [facility] Comment on above: Performed By: #### U MICRO, PREGU, ERUR #### [facility] [address] [place] [address] Dr. Adam Mejía UR MICRO IND INDICATED Normal [facility] Comment on above: Performed By: #### U MICRO, PREGU, ERUR #### [facility] [address] [place] [address] Dr. Adam eMjía Urobilinogen Qn (U) 1.0 {Brinda'U}/dL Normal 0.2 - 1. 0 [facility] Comment on above: Performed By: #### U MICRO, PREGU, ERUR #### [facility] [address] [place] [address] Dr. Adam Mejía LACTATE/LACTIC ACIDon 2022 Lactate [Moles/Vol] 0.5 mmol/L Normal 0.4-2.0 [facility] Comment on above: Performed By: #### U MICRO, PREGU, ERUR #### [facility] [address] [address] [address] Adam Mejía LIPASEon 12-07-2022 Lipase [Catalytic activity/Vol] 219.0 U/L Normal 73.0-393.0 [facility] Comment on above: Performed By: #### U MICRO, PREGU, ERUR #### [facility] [address] [address] [address] Adam Mejía LIVER PROFILEon 12-07-2022 Albumin [Mass/Vol] 3.7 g/dL Normal 3.4-5.0 [facility] Comment on above: Performed By: #### U MICRO, PREGU, ERUR #### [facility] [address] [place] [address] Dr. Adam Mejía Albumin/Globulin [Mass ratio] 1.1 {ratio} Normal [facility] Comment on above: Performed By: #### U MICRO, PREGU, ERUR #### [facility] [address] [address] [address] Adam Mejía ALP [Catalytic activity/Vol] 57 U/L Normal 46-116 [facility] Comment on above: Performed By: #### U MICRO, PREGU, ERUR #### [facility] [address] [address] [address] Adam Mejía ALT [Catalytic activity/Vol] 15 U/L Normal 14-59 [facility] Comment on above: Performed By: #### U MICRO, PREGU, ERUR #### [facility] [address] [address] [address] Adam Mejía AST [Catalytic activity/Vol] 13 U/L Critically low 15-37 [facility] Comment on above: Performed By: #### U MICRO, PREGU, ERUR #### [facility] [address] [place] [address] Dr. Adam Mejía BILI, CONJUGATED 0.2 mg/dL Normal 0.0-0.2 [facility] Comment on above: Performed By: #### U MICRO, PREGU, ERUR #### [facility] [address] [place] [address] Dr. Adam Mejía Bilirubin [Mass/Vol] 0.2 mg/dL Normal 0.2-1.0 [facility] Comment on above: Performed By: #### U MICRO, PREGU, ERUR #### [facility] [address] [place] [address] Dr. Adam Mejía Globulin (S) [Mass/Vol] 3.4 g/dL Normal [facility] Comment on above: Performed By: #### U MICRO, PREGU, ERUR #### [facility] [address] [place] [address] Dr. Adam Mejía Protein [Mass/Vol] 7.1 g/dL Normal 6.4-8.2 [facility] Comment on above: Performed By: #### U MICRO, PREGU, ERUR #### [facility] [address] [place] [address] Dr. Adam Mejía PROF CHEM 8 (BAS METB)on Anion gap [Moles/Vol] 12.0 mmol/L Normal [facility] Comment on above: Performed By: #### U MICRO, PREGU, ERUR #### [facility] [address] [place] [address] Dr. Adam Mejía Calcium [Mass/Vol] 8.8 mg/dL Normal 8.5-10.1 [facility] Comment on above: Performed By: #### U MICRO, PREGU, ERUR #### [facility] [address] [place] [address] Dr. Adam Mejía Chloride [Moles/Vol] 102 mmol/L Normal 98-107 [facility] Comment on above: Performed By: #### U MICRO, PREGU, ERUR #### [facility] [address] [place] [address] Dr. Adam Mejía CO2 [Moles/Vol] 26.9 mmol/L Normal 21.0-32.0 [facility] Comment on above: Performed By: #### U MICRO, PREGU, ERUR #### [facility] [address] [place] [address] Dr. Adam Mejía Creatinine [Mass/Vol] 0.75 mg/dL Normal 0.55-1.02 [facility] Comment on above: Performed By: #### U MICRO, PREGU, ERUR #### [facility] [address] [address] [address] Adam Mejía EGFR-AF LEBANESE >60 Normal >=60 [facility] Comment on above: Performed By: #### U MICRO, PREGU, ERUR #### [facility] [address] [address] [address] Adam Mejía EGFR-NON AF LEBANESE >60 Normal >=60 [facility] Comment on above: Performed By: #### U MICRO, PREGU, ERUR #### [facility] [address] [address] [address] Adam Mejía Glucose [Mass/Vol] 97 mg/dL Normal 74-106 [facility] Comment on above: Performed By: #### U MICRO, PREGU, ERUR #### [facility] [address] [address] [address] Adam Mejía Potassium [Moles/Vol] 3.9 mmol/L Normal 3.5-5.1 [facility] Comment on above: Performed By: #### U MICRO, PREGU, ERUR #### [facility] [address] [address] [address] Adam Mejía Sodium [Moles/Vol] 137 mmol/L Normal 136-145 [facility] Comment on above: Performed By: #### U MICRO, PREGU, ERUR #### [facility] [address] [address] [address] Adam Mejía Urea nitrogen [Mass/Vol] 13.0 mg/dL Normal 7.0-18.0 [facility] Comment on above: Performed By: #### U MICRO, PREGU, ERUR #### [facility] [address] [address] [address] Adam Mejía Urea nitrogen/Creatinine [Mass ratio] 17.3 mg/mg Normal [facility] Comment on above: Performed By: #### U MICRO, PREGU, ERUR #### [facility] [address] [address] [address] Adam Mejía URINE MICROSCOPIC ONLYon BACTERIA NONE SEEN Normal NONE SEEN [facility] Comment on above: Performed By: #### U MICRO, PREGU, ERUR #### [facility] [address] [address] [address] Adam Mejía Bacteria identified Cx Nom (U) NOT INDICATED Normal [facility] Comment on above: Performed By: #### U MICRO, PREGU, ERUR #### [facility] [address] [address] [address] Adam Mejía CAST NONE SEEN Normal NONE SEEN [facility] Comment on above: Performed By: #### U MICRO, PREGU, ERUR #### [facility] [address] [place] [address] Dr. Adam Mejía Crystals LM Nom (Urine sed) NONE SEEN Normal NONE SEEN [facility] Comment on above: Performed By: #### U MICRO, PREGU, ERUR #### [facility] [address] [place] [address] Dr. Adam Mejía Epithelial cells LM Ql (Urine sed) RARE Normal NONE SEEN /RARE [facility] Comment on above: Performed By: #### U MICRO, PREGU, ERUR #### [facility] [address] [place] [address] Dr. Adam Mejía MUCOUS NONE SEEN Normal NONE SEEN [facility] Comment on above: Performed By: #### U MICRO, PREGU, ERUR #### [facility] [address] [place] [address] Dr. Adam Mejía RBC 2-5 Abnormal 0-2 [facility] Comment on above: Performed By: #### U MICRO, PREGU, ERUR #### [facility] [address] [place] [address] Dr. Adam Mejía WBC NONE SEEN Normal NONE SEEN [facility] Comment on above: Performed By: #### U MICRO, PREGU, ERUR #### [facility] [address] [place] [address] Dr. Adam Mejía XR ABD FLAT UP_PA [...] by: LENI ANGEL Date: 2022-12-07 00:23 Normal [facility] US PELVIS TRANSVAGon 2 023 US PELVIS TRANSVAG EXAMINATION: US PELV [...] by: KALPESH FOWLER Date: 2022-11-29 11:27 Normal [facility] No Panel InformationOrdered By: Dayne Horton on 10-12-2022 25-Hydroxy Vitamin D Total 10.4 ng/mL 30-100 [facility] Comment on above: VITAMIN D STATUS 25( [place])VITAMIN D RANGE (ng/mL) Deficient <20 Insufficient 20 to <30Sufficient 30 to 100Reference: Pam MF,Abelardo NC, Cj GARZA, et al. Evaluation,treatment, and prevention of vitamin D deficiency; an Endocrine Society clinical practice guideline. JCEM. 2010; 96(7):1911-30. Serum or plasma thyroglobuli n antibody assay (units/volume)Ordered By: Dayne Horton on 10-12-2022 Thyroglobulin Ab Qn [IU]/mL 0.0-0.9 [facility] Comment on above: Thyroglobulin Antibo dy measured by SureGeneMethodologyPerformed at: CB - [facility] [address] [id number] Director: Alan Macias PhD, Phone: [phone] Serum or plasma thyroperoxid ase antibody assay (units/volume)Ordered By: Dayne Horton on 10-12-2022 TPO Ab Qn 11 [IU]/mL 0-34 [facility] Serum thyrotropin receptor a ntibody assay (units/volume)Ordered By: Dayne Horton on 10-12-2022 TSH receptor Ab Qn (S) <1.10 IU/L 0.00-1.75 [facility] Comment on above: Performed at: - [facility] [id number] Director: Artemio Guillen MD, Phone: [phone] TSH DL <= 0.005 mIU/L QnOrde red By: Dayne Horton on 10-12-2022 TSH Qn 0.06 m[IU]/L 0.45-5.33 [facility] Thyroxine (T4) free [Mass/vo lume] in Serum or PlasmaOrdered By: Dayne Horton on 10-12-2022 Free T4 [Mass/Vol] 1.02 ng/dL 0.61-1.12 [facility] Triiodothyronine (T3) Free [ Mass/volume] in Serum or PlasmaOrdered By: Dayne Horton on 10-12-2022 Free T3 [Mass/Vol] 3.90 pg/mL 2.50-3.90 [facility] Basophils Auto (Bld) [#/Vol] Ordered By: Kelly Hough on 10-03-2022 Basophils (Bld) [#/Vol] 0.0 10*3/uL 0.0-0.2 [facility] Basophils/100 WBC Auto (Bld) Ordered By: Kelly Hough on 10-03-2022 Basophils/100 WBC (Bld) 0.7 % . [facility] CT biopsyOrdered By: Kelly Ramos on 10-03-2022 Transferrin [Mass/Vol] 230 mg/dL 180-380 [facility] Eosinophils Auto (Bld) [#/Vo l]Ordered By: Kelly Hough on 10-03-2022 Eosinophils (Bld) [#/Vol] 0.1 10*3/uL 0.0-0.45 [facility] Eosinophils/100 WBC Auto (Bl d)Ordered By: Kelly Hough on 10-03-2022 Eosinophils/100 WBC (Bld) 2.4 % . [facility] Erythrocyte distribution wid th Auto (RBC) [Ratio]Ordered By: Kelly Hough on 10-03-2022 Erythrocyte distribution width (RBC) [Ratio] 15.2 % 11.9-15.3 [facility] Ferritin [Mass/volume] in Se rum or PlasmaOrdered By: Kelly Hough on 10-03-2022 Ferritin [Mass/Vol] 7.7 ng/mL 11-306.8 [facility] Hematocrit Auto (Bld) [Volum e fraction]Ordered By: Kelly Hough on 10-03-2022 Hematocrit (Bld) [Volume fraction] 31.2 % 34.0-46.4 [facility] Hemoglobin [Mass/volume] in BloodOrdered By: Kelly Hough on 10-03-2022 Hemoglobin (Bld) [Mass/Vol] 9.7 g/dL 11.8-15.4 [facility] Iron [Mass/volume] in Serum or PlasmaOrdered By: Kelly Hough on 10-03-2022 Iron [Mass/Vol] 96 ug/dL 40-150 [facility] Iron binding capacity [Mass/ volume] in Serum or PlasmaOrdered By: Kelly Hough on 10-03-2022 Iron binding capacity [Mass/Vol] 322 ug/dL 255-450 [facility] Iron saturation [Mass Fracti on] in Serum or PlasmaOrdered By: Kelly Hough on 10-03-2022 Iron saturation [Mass fraction] 29.8 % 20-50 [facility] Leukocytes [#/volume] correc delmer for nucleated erythrocytes in Blood by Automated counOrdered By: Kelly Hough on 10-03-2022 WBC corrected for nucl RBC Auto (Bld) [#/Vol] 5.6 10*3/uL 3.8-11.6 [facility] Lymphocytes Auto (Bld) [#/Vo l]Ordered By: Kelly Hough on 10-03-2022 Lymphocytes (Bld) [#/Vol] 1.7 10*3/uL 1.00-4.8 [facility] Lymphocytes/100 WBC Auto (Bl d)Ordered By: Kelly Hough on 10-03-2022 Lymphocytes/100 WBC (Bld) 30.9 % . [facility] MCH Auto (RBC) [Entitic mass ]Ordered By: Kelly Hough on 10-03-2022 MCH (RBC) [Entitic mass] 21.8 pg 24.7-34.3 [facility] MCHC Auto (RBC) [Mass/Vol]Or dered By: Kelly Hough on 10-03-2022 MCHC (RBC) [Mass/Vol] 31.2 g/dL 32.0-35.0 [facility] MCV Auto (RBC) [Entitic vol] Ordered By: Kelly Hough on 10-03-2022 MCV (RBC) [Entitic vol] 70.0 fL 80-100 [facility] Monocytes Auto (Bld) [#/Vol] Ordered By: Kelly Hough on 10-03-2022 Monocytes (Bld) [#/Vol] 0.4 10*3/uL 0.0-0.8 [facility] Monocytes/100 WBC Auto (Bld) Ordered By: Kelly Hough on 10-03-2022 Monocytes/100 WBC (Bld) 6.3 % . [facility] Neutrophils Auto (Bld) [#/Vo l]Ordered By: Kelly Hough on 10-03-2022 Neutrophils (Bld) [#/Vol] 3.4 10*3/uL 1.8-7.7 [facility] Neutrophils/100 WBC Auto (Bl d)Ordered By: Kelly Hough on 10-03-2022 Neutrophils/100 WBC (Bld) 59.7 % . [facility] Nucleated erythrocytes [Pres ence] in Blood by Automated countOrdered By: Kelly Hough on 10-03-2022 Nucleated RBC Auto Ql (Bld) 0.1 /100{WBC} 0-0.5 [facility] Platelet mean volume Auto (B ld) [Entitic vol]Ordered By: Kelly Hough on 10-03-2022 Platelet mean volume (Bld) [Entitic vol] 9.4 fL 6.3-10.7 [facility] Platelets Auto (Bld) [#/Vol] Ordered By: Kelly Hough on 10-03-2022 Platelets (Bld) [#/Vol] 226 10*3/uL 150-450 [facility] RBC Auto (Bld) [#/Vol]Ordere d By: Kelly Hough on 10-03-2022 RBC (Bld) [#/Vol] 4.46 10*6/uL 3.60-5.00 [facility] WBC Auto (Bld) [#/Vol]Ordere d By: Kelly Hough on 10-03-2022 WBC (Bld) [#/Vol] 5.6 10*3/uL 3.8-11.6 [facility] Free thyroxine indexOrdered By: Yudelka Lopez on 10-02-2022 Free T4 index Calc [Mass/Vol] 2.8 1.2-4.9 [facility] No Panel InformationOrdered By: Yudelka Lopez on 10-02-2022 Free Thyroxine (T4) Direct 8.6 ug/dL 4.5-12.0 [facility] TSH DL <= 0.005 mIU/L QnOrde red By: Yudelka Lopez on 10-02-2022 TSH Qn 0.037 m[IU]/L 0.450-4.50 0 [facility] Triiodothyronine (T3) [Mass/ volume] in Serum or PlasmaOrdered By: Yudelka Lopez on 10-02-2022 T3 [Mass/Vol] 135 ng/dL 71-180 [facility] Comment on above: Performed at: [address] [id number] Director: Alan Macias PhD, Phone: [phone] Triiodothyronine (T3) resin uptake testOrdered By: Yudelka Lopez on 10-02-2022 T3RU 33 % 24-39 [facility] Activated partial thrombopla stin time (aPTT) in platelet poor plasma by coagulation aOrdered By: Jim Vega on 09-21-2022 aPTT Coag (PPP) [Time] 30.8 s 25.1-36.5 [facility] Albumin [Mass/volume] in Ser um or PlasmaOrdered By: Jim Vega on 09-21-2022 Albumin [Mass/Vol] 3.7 g/dL 3.2-5.5 [facility] Automated erythrocytes count in urine sediment (number/area)Ordered By: Jim Vega on 09-21-2022 RBC Auto (Urine sed) [#/Area] 1-2 [HPF] 0-4 [facility] Automated leukocytes count i n urine sediment (number/area)Ordered By: Jim Vega on 09-21-2022 WBC Auto (Urine sed) [#/Area] 0-1 [HPF] 0-4 [facility] Basophils Auto (Bld) [#/Vol] Ordered By: Jim Vega on 09-21-2022 Basophils (Bld) [#/Vol] 0.0 10*3/uL 0.0-0.2 [facility] Basophils/100 WBC Auto (Bld) Ordered By: Jim Vega on 09-21-2022 Basophils/100 WBC (Bld) 0.5 % . [facility] Bilirubin Test strip Ql (U)O rdered By: Jim Vega on 09-21-2022 Bilirubin Ql (U) Negative Negative [facility] COVID CepheidOrdered By: Rahat Vega on 09-21-2022 SARS-CoV-2 (COVID-19) Ab IA Ql Negative Negative [facility] Comment on above: This is a duplicate ASSURED INFORMATION SECURITY Xpert Xpress CoV-2/Flu/RSV Plus RNA by RT-PCR result to be used for statistical tracking purpose only. SARS-CoV-2 (COVID-19) RNA HIRAM+probe Ql (Unsp spec) [facility] SARS-CoV-2 (COVID-19) RNA HIRAM+probe Ql (Unsp spec) [facility] Color Auto (U)Ordered By: Narinder Vega on 09-21-2022 Color (U) Yellow Yellow [facility] Creatinine and Glomerular fi ltration rate.predicted panel (S/P/Bld)Ordered By: Jim Vega on 09-21-2022 Creatinine [Mass/Vol] 0.79 mg/dL 0.44-1.03 [facility] Eosinophils Auto (Bld) [#/Vo l]Ordered By: Jim Vega on 09-21-2022 Eosinophils (Bld) [#/Vol] 0.1 10*3/uL 0.0-0.45 [facility] Eosinophils/100 WBC Auto (Bl d)Ordered By: Jim Vega on 09-21-2022 Eosinophils/100 WBC (Bld) 2.7 % . [facility] Erythrocyte distribution wid th Auto (RBC) [Ratio]Ordered By: Jim Vega on 09-21-2022 Erythrocyte distribution width (RBC) [Ratio] 15.6 % 11.9-15.3 [facility] Estimated glomerular filtrat ion rate (GFR) non- AmericanOrdered By: Jim Vega on 09-21-2022 GFR/1.73 sq M.predicted among non-blacks MDRD (S/P/Bld) [Vol rate/Area] > 60 mL/Min [facility] Globulin Calc (S) [Mass/Vol] Ordered By: Jim Vega on 09-21-2022 Globulin (S) [Mass/Vol] 3.3 g/dL [facility] HCG ( test) IA.rapi d Ql (U)Ordered By: Jim Vega on 09-21-2022 HCG ( test) Ql (U) Negative [facility] Hematocrit Auto (Bld) [Volum e fraction]Ordered By: Jim Vega on 09-21-2022 Hematocrit (Bld) [Volume fraction] 31.9 % 34.0-46.4 [facility] Hemoglobin [Mass/volume] in BloodOrdered By: Jmi Vega on 09-21-2022 Hemoglobin (Bld) [Mass/Vol] 9.9 g/dL 11.8-15.4 [facility] Ketones Auto test strip (U) [Mass/Vol]Ordered By: Jim Vega on 09-21-2022 Ketones (U) [Mass/Vol] Negative Negative [facility] - CoagulationOrde red By: Jim Vega on 09-21-2022 PT Coag (PPP) [Time] 13.3 s 9.0-12.9 [facility] - UrinalysisOrder ed By: Jim Vega on 09-21-2022 Hyaline casts LM Ql (Urine sed) None seen [LPF] 0-8 [facility] Leukocytes [#/volume] correc delmer for nucleated erythrocytes in Blood by Automated counOrdered By: Jim Vega on 09-21-2022 WBC corrected for nucl RBC Auto (Bld) [#/Vol] 5.4 10*3/uL 3.8-11.6 [facility] Lymphocytes Auto (Bld) [#/Vo l]Ordered By: Jim Vega on 09-21-2022 Lymphocytes (Bld) [#/Vol] 1.4 10*3/uL 1.00-4.8 [facility] Lymphocytes/100 WBC Auto (Bl d)Ordered By: Jim Vega on 09-21-2022 Lymphocytes/100 WBC (Bld) 26.1 % . [facility] MCH Auto (RBC) [Entitic mass ]Ordered By: Jim Vega on 09-21-2022 MCH (RBC) [Entitic mass] 21.7 pg 24.7-34.3 [facility] MCHC Auto (RBC) [Mass/Vol]Or dered By: Jim Vega on 09-21-2022 MCHC (RBC) [Mass/Vol] 31.0 g/dL 32.0-35.0 [facility] MCV Auto (RBC) [Entitic vol] Ordered By: Jim Vega on 09-21-2022 MCV (RBC) [Entitic vol] 70.1 fL 80-100 [facility] Monocyte distribution width [Entitic volume] in Blood by AutomatedOrdered By: Jim Vega on 09-21-2022 Monocyte distribution width Auto (Bld) [Entitic vol] 15.00 % 0.00-20.00 [facility] Monocytes Auto (Bld) [#/Vol] Ordered By: Jim Vega on 09-21-2022 Monocytes (Bld) [#/Vol] 0.4 10*3/uL 0.0-0.8 [facility] Monocytes/100 WBC Auto (Bld) Ordered By: Jim Vega on 09-21-2022 Monocytes/100 WBC (Bld) 6.9 % . [facility] Neutrophils Auto (Bld) [#/Vo l]Ordered By: Jim Vega on 09-21-2022 Neutrophils (Bld) [#/Vol] 3.4 10*3/uL 1.8-7.7 [facility] Neutrophils/100 WBC Auto (Bl d)Ordered By: Jim Vega on 09-21-2022 Neutrophils/100 WBC (Bld) 63.8 % . [facility] Nitrite Test strip Ql (U)Ord ered By: Jim Vega on 09-21-2022 Nitrite Ql (U) Negative Negative [facility] No Panel InformationOrdered By: Jim Vega on 09-21-2022 D-Dimer Quantitative (PE/DVT) 205 ng/mL 0-243 [facility] Comment on above: The reference [...] conditions. Estimated GFR () > 60 mL/Min [facility] Comment on above: GFR estimated refere nce range: According to KDOQI guidelines, <60 ml/min/1.73m2 is sufficient to diagnose a patient with chronic kidney disease. Pharmacy Creatinine Clearance (Chem 96.49 [facility] Nucleated erythrocytes [Pres ence] in Blood by Automated countOrdered By: Jim Vega on 09-21-2022 Nucleated RBC Auto Ql (Bld) 0.4 /100{WBC} 0-0.5 [facility] Platelet mean volume Auto (B ld) [Entitic vol]Ordered By: Jim Vega on 09-21-2022 Platelet mean volume (Bld) [Entitic vol] 10.0 fL 6.3-10.7 [facility] Platelet poor plasma interna tional normalized ratio (INR) by coagulation assay (relatOrdered By: Jim Vega on 09-21-2022 INR Coag (PPP) [Relative time] 1.2 {INR} [facility] Comment on above: INR Therapeutic [...] 09-21-2022 Platelets (Bld) [#/Vol] 215 10*3/uL 150-450 [facility] Protein Auto test strip (U) [Mass/Vol]Ordered By: Jim Vega on 09-21-2022 Protein (U) [Mass/Vol] Negative Negative [facility] Protein [Mass/volume] in Ser um or PlasmaOrdered By: Jim Vega on 09-21-2022 Protein [Mass/Vol] 7.0 g/dL 6.1-7.9 [facility] RBC Auto (Bld) [#/Vol]Ordere d By: Jim Vega on 09-21-2022 RBC (Bld) [#/Vol] 4.54 10*6/uL 3.60-5.00 [facility] Serum or plasma alanine keene otransferase measurement without P-5'-P (enzymatic activiOrdered By: Jim Vega on 09-21-2022 ALT No additional P-5'-P [Catalytic activity/Vol] 11 U/L 10-60 [facility] Serum or plasma albumin/glob ulin mass ratioOrdered By: Jim Vega on 09-21-2022 Albumin/Globulin [Mass ratio] 1.1 {ratio} [facility] Serum or plasma alkaline jared sphatase measurement (enzymatic activity/volume)Ordered By: Jim Vega on 09-21-2022 ALP [Catalytic activity/Vol] 47 U/L 32-92 [facility] Serum or plasma anion gap de terminationOrdered By: Jim Vega on 09-21-2022 Anion gap [Moles/Vol] 10.0 mmol/L 6.0-15.0 [facility] Serum or plasma aspartate am inotransferase measurement (enzymatic activity/volume)Ordered By: Jim Vega on 09-21-2022 AST [Catalytic activity/Vol] 13 U/L 10-42 [facility] Serum or plasma calcium marychuy urement (mass/volume)Ordered By: Jim Vega on 09-21-2022 Calcium [Mass/Vol] 8.9 mg/dL 8.2-10.2 [facility] Serum or plasma chloride nemo surement (moles/volume)Ordered By: Jim Vega on 09-21-2022 Chloride [Moles/Vol] 105 mmol/L 95-114 [facility] Serum or plasma glucose marychuy urement (mass/volume)Ordered By: Jim Vega on 09-21-2022 Glucose [Mass/Vol] 114 mg/dL 70-100 [facility] Comment on above: ADA recommended refe rence rangeRandom Glucose Reference Range is dependent on time and content of last meal. Glucose of more than 200 mg/dL in a nonstressed, ambulatory subject supports the diagnosis of Diabetes Mellitus. Serum or plasma potassium me asurement (moles/volume)Ordered By: Jim Vega on 09-21-2022 Potassium [Moles/Vol] 3.5 mmol/L 3.5-5.1 [facility] Serum or plasma sodium measu rement (moles/volume)Ordered By: Jim Vega on 09-21-2022 Sodium [Moles/Vol] 134 mmol/L 136-146 [facility] Serum or plasma total biliru bin measurement (mass/volume)Ordered By: Jim Vega on 09-21-2022 Bilirubin [Mass/Vol] 0.5 mg/dL 0.3-1.2 [facility] Serum or plasma total carbon dioxide measurement (moles/volume)Ordered By: Jim Vega on 09-21-2022 CO2 [Moles/Vol] 22.5 mmol/L 22.0-30.0 [facility] Serum or plasma urea nitroge n measurement (mass/volume)Ordered By: Jim Vega on 09-21-2022 Urea nitrogen [Mass/Vol] 5 mg/dL 9-23 [facility] Specific gravity Auto test s trip (U) [Rel density]Ordered By: Jim Vega on 09-21-2022 Specific gravity (U) [Rel density] 1.004 1.001-1.03 0 [facility] Squamous epithelial cells de tection in urine sediment by light microscopyOrdered By: Jim Vega on 09-21-2022 Epithelial cells.squamous LM Ql (Urine sed) 0-1 [HPF] 0-2 [facility] TSH DL <= 0.005 mIU/L QnOrde red By: Jim Vega on 09-21-2022 TSH Qn 0.14 m[IU]/L 0.45-5.33 [facility] Thyroxine (T4) free [Mass/vo lume] in Serum or PlasmaOrdered By: Jim Vega on 09-21-2022 Free T4 [Mass/Vol] 1.30 ng/dL 0.61-1.12 [facility] Troponin I.cardiac [Mass/vol ume] in Serum or Plasma by High sensitivity methodOrdered By: Jim Vega on 09-21-2022 Troponin I.cardiac High sensitivity method [Mass/Vol] < 3 pg/mL 0-15 [facility] Urine bacteria detection by automated methodOrdered By: Jim Vega on 09-21-2022 Bacteria Auto Ql (U) None seen None Seen [facility] Urine clarity by refractomet ry automatedOrdered By: Jim Vega on 09-21-2022 Clarity Refractometry automated (U) Clear Clear [facility] Urine glucose measurement by automated test strip (mass/volume)Ordered By: Jim Vega on 09-21-2022 Glucose Auto test strip (U) [Mass/Vol] Normal mg/dL Normal [facility] Urine hemoglobin detection b y automated test stripOrdered By: iJm Vega on 09-21-2022 Hemoglobin Auto test strip Ql (U) Trace Negative [facility] Urine leukocyte esterase det ection by automated test stripOrdered By: Jim Vega on 09-21-2022 Leukocyte esterase Auto test strip Ql (U) Negative Negative [facility] Urobilinogen Auto test strip (U) [Mass/Vol]Ordered By: Jim Vega on 09-21-2022 Urobilinogen (U) [Mass/Vol] Normal mg/dL Normal [facility] WBC Auto (Bld) [#/Vol]Ordere d By: Jim Vega on 09-21-2022 WBC (Bld) [#/Vol] 5.4 10*3/uL 3.8-11.6 [facility] pH Auto test strip (U)Ordere d By: Jim Vega on 09-21-2022 pH (U) 7.0 [pH] 5.0-9.0 [facility] Anisocytosis LM Ql (Bld)Orde red By: Tejinder Peraza on 09-15-2022 Anisocytosis Ql (Bld) Slight [facility] Basophils Auto (Bld) [#/Vol] Ordered By: Tejinder Peraza on 09-15-2022 Basophils (Bld) [#/Vol] 0.0 10*3/uL 0.0-0.2 [facility] Basophils/100 WBC Auto (Bld) Ordered By: Tejinder Peraza on 09-15-2022 Basophils/100 WBC (Bld) 0.3 % . [facility] Eosinophils Auto (Bld) [#/Vo l]Ordered By: Tejinder Peraza on 09-15-2022 Eosinophils (Bld) [#/Vol] 0.1 10*3/uL 0.0-0.45 [facility] Eosinophils/100 WBC Auto (Bl d)Ordered By: Tejinder Peraza on 09-15-2022 Eosinophils/100 WBC (Bld) 1.2 % . [facility] Erythrocyte distribution wid th Auto (RBC) [Ratio]Ordered By: joellen Peraza on 09-15-2022 Erythrocyte distribution width (RBC) [Ratio] 15.2 % 11.9-15.3 [facility] Hematocrit Auto (Bld) [Volum e fraction]Ordered By: joellen Peraza on 09-15-2022 Hematocrit (Bld) [Volume fraction] 30.9 % 34.0-46.4 [facility] Hemoglobin [Mass/volume] in BloodOrdered By: Tejinder Peraza on 09-15-2022 Hemoglobin (Bld) [Mass/Vol] 9.6 g/dL 11.8-15.4 [facility] Hypochromia LM Ql (Bld)Order ed By: Tejinder Peraza on 09-15-2022 Hypochromia Ql (Bld) Slight [facility] Leukocytes [#/volume] correc delmer for nucleated erythrocytes in Blood by Automated counOrdered By: Tejinder Peraza on 09-15-2022 WBC corrected for nucl RBC Auto (Bld) [#/Vol] 7.5 10*3/uL 3.8-11.6 [facility] Lymphocytes Auto (Bld) [#/Vo l]Ordered By: Tejinder Peraza on 09-15-2022 Lymphocytes (Bld) [#/Vol] 1.7 10*3/uL 1.00-4.8 [facility] Lymphocytes/100 WBC Auto (Bl d)Ordered By: Tejinder Peraza on 09-15-2022 Lymphocytes/100 WBC (Bld) 22.2 % . [facility] MCH Auto (RBC) [Entitic mass ]Ordered By: Tejinder Peraza on 09-15-2022 MCH (RBC) [Entitic mass] 21.8 pg 24.7-34.3 [facility] MCHC Auto (RBC) [Mass/Vol]Or dered By: Tejinder Peraza on 09-15-2022 MCHC (RBC) [Mass/Vol] 31.1 g/dL 32.0-35.0 [facility] MCV Auto (RBC) [Entitic vol] Ordered By: Tejinder Peraza on 09-15-2022 MCV (RBC) [Entitic vol] 70.0 fL 80-100 [facility] Microcytes LM Ql (Bld)Ordere d By: Tejinder Peraza on 09-15-2022 Microcytes Ql (Bld) Slight [facility] Monocytes Auto (Bld) [#/Vol] Ordered By: Tejinder Peraza on 09-15-2022 Monocytes (Bld) [#/Vol] 0.4 10*3/uL 0.0-0.8 [facility] Monocytes/100 WBC Auto (Bld) Ordered By: Tejinder Peraza on 09-15-2022 Monocytes/100 WBC (Bld) 5.3 % . [facility] Neutrophils Auto (Bld) [#/Vo l]Ordered By: Tejinder Peraza on 09-15-2022 Neutrophils (Bld) [#/Vol] 5.3 10*3/uL 1.8-7.7 [facility] Neutrophils/100 WBC Auto (Bl d)Ordered By: Tejinder Peraza on 09-15-2022 Neutrophils/100 WBC (Bld) 71.0 % . [facility] No Panel InformationOrdered By: Tejinder Peraza on 09-15-2022 D-Dimer Quantitative (PE/DVT) 245 ng/mL 0-243 [facility] Comment on above: The reference [...] in Blood by Automated countOrdered By: Tejinder Somarii on 09-15-2022 Nucleated RBC Auto Ql (Bld) 0.1 /100{WBC} 0-0.5 [facility] Ovalocyte detectionOrdered B y: Tejinder Soviak on 09-15-2022 Ovalocytes LM Ql (Bld) Slight [facility] Platelet adequacy [Presence] in Blood by Light microscopyOrdered By: Tejinder Soviak on 09-15-2022 Platelets LM Ql (Bld) Normal Normal [facility] Platelet mean volume Auto (B ld) [Entitic vol]Ordered By: Tejinder Soviak on 09-15-2022 Platelet mean volume (Bld) [Entitic vol] 9.8 fL 6.3-10.7 [facility] Platelet morphology finding [Identifier] in BloodOrdered By: Tejinder Soviak on 09-15-2022 Platelet morphology finding Nom (Bld) Normal Normal [facility] Platelets Auto (Bld) [#/Vol] Ordered By: Tejinder Soviak on 09-15-2022 Platelets (Bld) [#/Vol] 212 10*3/uL 150-450 [facility] Poikilocytosis [Presence] in Blood by Light microscopyOrdered By: Tejinder Sovigeri on 09-15-2022 Poikilocytosis LM Ql (Bld) Slight [facility] Polychromasia [Presence] in Blood by Light microscopyOrdered By: Tejinder Soviak on 09-15-2022 Polychromasia LM Ql (Bld) [facility] RBC Auto (Bld) [#/Vol]Ordere d By: Kip Soviak on 09-15-2022 RBC (Bld) [#/Vol] 4.42 10*6/uL 3.60-5.00 [facility] RBC morphologyOrdered By: Dhaval p Stu on 09-15-2022 RBC morphology finding Nom (Bld) N/A [facility] WBC Auto (Bld) [#/Vol]Ordere d By: Tejinder Peraza on 09-15-2022 WBC (Bld) [#/Vol] 7.5 10*3/uL 3.8-11.6 [facility] AFP (TUMOR MARKER)on 022 AFP, Serum, Tumor Marker <1.8 Normal 0.0-4.7 [facility] Comment on above: Result Comment: [employer] Electrochemiluminescence Immunoassay (ECLIA) . Values obtained with different assay methods or kits cannot be used interchangeably. Results cannot be interpreted as absolute evidence of the presence or absence of malignant disease. . This test is not interpretable in females. Performed By: #### U MICRO, PREGU, ERUR #### [facility] [address] [address] [address] Adam Mejía CA 125on 08-06-2022 Cancer Antigen (CA) 125 29.7 U/mL Normal 0.0-38.1 [facility] Comment on above: Result Comment: [employer] Electrochemiluminescence Immunoassay (ECLIA) . Values obtained with different assay methods or kits cannot be used interchangeably. Results cannot be interpreted as absolute evidence of the presence or absence of malignant disease. Performed By: #### U MICRO, PREGU, ERUR #### [facility] [address] [address] [address] Adam Mejía CEAon 08-06-2022 CEA 0.9 ng/mL Normal 0.0-4.7 [facility] Comment on above: Result Comment: Nons mokers <3.9 Smokers <5.6 . [employer] Electrochemiluminescence Immunoassay (ECLIA) . Values obtained with different assay methods or kits cannot be used interchangeably. Results cannot be interpreted as absolute evidence of the presence or absence of malignant disease. Performed By: #### U MICRO, PREGU, ERUR #### [facility] [address] [address] [address] Adam Mejía HCG QUANT TUMOR MARKERon HCG QNT TUMOR MARKER <1 Normal [facility] Comment on above: Result Comment: Fema le [...] developed and its performance characteristics determined by [facility]. It has not been cleared or approved by the Food and Drug Administration for use as a tumor marker. . This test is not interpretable as a tumor marker in females. Performed By: #### H CGTMOR #### [facility] [address] [place], [place] [address] Dr. Adam Mejía LDHon 08-05-2022 LDH 164 U/L Normal 81-234 [facility] Comment on above: Performed By: #### U MICRO, PREGU, ERUR #### [facility] [address] [place], [place] [address] Dr. Adam Mejía US PELVIS TRANSVAGon 022 [...] by: KALPESH FOWLER Date: 2022-07-29 06:26 Normal [facility] PAP ACOG PANEL 2: 30 to 65on 07-10-2022 . . Normal [facility] Comment on above: Result Comment: Perf ormed at: WB Performed By: #### [id number] #### [facility] [address] [address] [address] Adam Mejía Age Gdln ACOG Testing 30-65 Normal [facility] Comment on above: Performed By: #### [id number] #### [facility] [address] [address] [address] Adam Mejía DIAGNOSIS: Comment Normal [facility] Comment on above: Result Comment: NEGA TIVE FOR INTRAEPITHELIAL LESION OR MALIGNANCY. Performed at: WB Performed By: #### [id number] #### [facility] [address] [address] [address] Adam Mejía HPV Aptima Negative Normal Negative [facility] Comment on above: Result Comment: This nucleic acid amplification test detects fourteen high-risk HPV types (16,18,31,33,35,39,45,51,52,56,58,59,66,68) without differentiation. Performed at: =G Performed By: #### [id number] #### [facility] [address] [address] [address] Adam Mejía Methodology: Comment Normal [facility] Comment on above: Result Comment: This liquid based ThinPrep(R) pap test was screened with the use of an image guided system. Performed at: WB Performed By: #### [id number] #### [facility] [address] [address] [address] Adam Mejía Note: Comment Normal [facility] Comment on above: Result Comment: The Pap smear is a screening test designed to aid in the detection of premalignant and malignant conditions of the uterine cervix. It is not a diagnostic procedure and should not be used as the sole means of detecting cervical cancer. Both false-positive and false-negative reports do occur. . Performed at: WB Performed By: #### [id number] #### [facility] [address] [place] [address] Dr. Adam Mejía Performed by: Comment Normal [facility] Comment on above: Result Comment: Dat Choi, Junior Marketing Associate (ASCP) Performed at: WB Performed By: #### [id number] #### [facility] [address] [place] [address] Dr. Adam Mejía Specimen adequacy: Comment Normal [facility] Comment on above: Result Comment: Sati sfactory for evaluation. No endocervical component is identified. Performed at: WB Performed By: #### [id number] #### [facility] [address] [place] [address] Dr. Adam Mejía CHLAMYDIA/GONOCOCCUS HIRAM (SW AB/URINE/PAPon 07-05-2022 Chlamydia trachomatis, HIRAM Negative Normal Negative [facility] Comment on above: Performed By: #### C T/NGNA #### [facility] [address] [place] [address] Dr. Adam Mejía Neisseria gonorrhoeae, HIRAM Negative Normal Negative [facility] Comment on above: Performed By: #### C T/NGNA #### [facility] [address] [place] [address] Dr. Adam Mejía VAGINITIS/VAGINOSIS DNA PROB [place] 07-05-2022 Marion species Positive Abnormal Negative [facility] Comment on above: Performed By: #### V AGINT #### [facility] [address] [place] [address] Dr. Adam Mejía Gardnerella vaginalis Positive Abnormal Negative [facility] Comment on above: Performed By: #### V AGINT #### [facility] [address] [place] [address] Dr. Adam Mejía Trichomonas vaginalis Negative Normal Negative [facility] Comment on above: Performed By: #### V AGINT #### [facility] [address] [place] [address] Dr. Adam Mejía Activated partial thrombopla stin time (aPTT) in platelet poor plasma by coagulation aOrdered By: Frank Silva on 07-04-2022 aPTT Coag (PPP) [Time] 30.9 s 25.1-36.5 [facility] Albumin [Mass/volume] in Ser um or PlasmaOrdered By: Frank Silva on 07-04-2022 Albumin [Mass/Vol] 3.6 g/dL 3.2-5.5 [facility] Automated erythrocytes count in urine sediment (number/area)Ordered By: Frank Silva on 07-04-2022 RBC Auto (Urine sed) [#/Area] 3-4 [HPF] 0-4 [facility] Automated leukocytes count i n urine sediment (number/area)Ordered By: Frank Silva on 07-04-2022 WBC Auto (Urine sed) [#/Area] 0-1 [HPF] 0-4 [facility] Basophils Auto (Bld) [#/Vol] Ordered By: Frank Silva on 07-04-2022 Basophils (Bld) [#/Vol] 0.0 10*3/uL 0.0-0.2 [facility] Basophils/100 WBC Auto (Bld) Ordered By: Frank Silva on 07-04-2022 Basophils/100 WBC (Bld) 0.4 % . [facility] Bilirubin Test strip Ql (U)O rdered By: Frank Silva on 07-04-2022 Bilirubin Ql (U) Negative Negative [facility] Color Auto (U)Ordered By: Godfrey Silva on 07-04-2022 Color (U) Yellow Yellow [facility] Creatinine and Glomerular fi ltration rate.predicted panel (S/P/Bld)Ordered By: Frank Silva on 07-04-2022 Creatinine [Mass/Vol] 0.80 mg/dL 0.44-1.03 [facility] Direct bilirubin measurement Ordered By: Frank Silva on 07-04-2022 Bilirubin.direct [Mass/Vol] mg/dL 0.0-0.4 [facility] Eosinophils Auto (Bld) [#/Vo l]Ordered By: Frank Silva on 07-04-2022 Eosinophils (Bld) [#/Vol] 0.1 10*3/uL 0.0-0.45 [facility] Eosinophils/100 WBC Auto (Bl d)Ordered By: Frank Silva on 07-04-2022 Eosinophils/100 WBC (Bld) 1.2 % . [facility] Erythrocyte distribution wid th Auto (RBC) [Ratio]Ordered By: Frank Silva on 07-04-2022 Erythrocyte distribution width (RBC) [Ratio] 14.9 % 11.9-15.3 [facility] Estimated glomerular filtrat ion rate (GFR) non- AmericanOrdered By: Frank Silva on 07-04-2022 GFR/1.73 sq M.predicted among non-blacks MDRD (S/P/Bld) [Vol rate/Area] > 60 mL/Min [facility] Globulin Calc (S) [Mass/Vol] Ordered By: Frank Silva on 07-04-2022 Globulin (S) [Mass/Vol] 3.3 g/dL [facility] HCG ( test) IA.rapi d Ql (U)Ordered By: Frank Silva on 07-04-2022 HCG ( test) Ql (U) Negative [facility] Hematocrit Auto (Bld) [Volum e fraction]Ordered By: Frank Silva on 07-04-2022 Hematocrit (Bld) [Volume fraction] 32.0 % 34.0-46.4 [facility] Hemoglobin [Mass/volume] in BloodOrdered By: Frank Silva on 07-04-2022 Hemoglobin (Bld) [Mass/Vol] 9.7 g/dL 11.8-15.4 [facility] Ketones Auto test strip (U) [Mass/Vol]Ordered By: Frank Silva on 07-04-2022 Ketones (U) [Mass/Vol] Trace Negative [facility] - Chemistry and C hemistry - challengeOrdered By: Frank Silva on 07-04-2022 Lipase [Catalytic activity/Vol] 43.0 U/L 22-51 [facility] - CoagulationOrde red By: rFank Silva on 07-04-2022 PT Coag (PPP) [Time] 13.3 s 9.0-12.9 [facility] - Hematology and Cell countsOrdered By: Frank Silva on 07-04-2022 Nucleated RBC/100 WBC (Bld) [Ratio] 0.1 % 0-0.5 [facility] - UrinalysisOrder ed By: Frank Silva on 07-04-2022 Hyaline casts LM Ql (Urine sed) 0-8 [LPF] 0-8 [facility] Leukocytes [#/volume] in Blo od by Automated countOrdered By: Frank Silva on 07-04-2022 WBC (Bld) [#/Vol] 8.7 10*3/uL 4.5-11.0 [facility] Lymphocytes Auto (Bld) [#/Vo l]Ordered By: Frank Silva on 07-04-2022 Lymphocytes (Bld) [#/Vol] 1.2 10*3/uL 1.00-4.8 [facility] Lymphocytes/100 WBC Auto (Bl d)Ordered By: Frank Silva on 07-04-2022 Lymphocytes/100 WBC (Bld) 14.2 % . [facility] MCH Auto (RBC) [Entitic mass ]Ordered By: Frank Silva on 07-04-2022 MCH (RBC) [Entitic mass] 21.4 pg 24.7-34.3 [facility] MCHC Auto (RBC) [Mass/Vol]Or dered By: Frank Silva on 07-04-2022 MCHC (RBC) [Mass/Vol] 30.4 g/dL 32.0-35.0 [facility] MCV Auto (RBC) [Entitic vol] Ordered By: Frank Silva on 07-04-2022 MCV (RBC) [Entitic vol] 70.4 fL 80-100 [facility] Monocytes Auto (Bld) [#/Vol] Ordered By: Frank Silva on 07-04-2022 Monocytes (Bld) [#/Vol] 0.4 10*3/uL 0.0-0.8 [facility] Monocytes/100 WBC Auto (Bld) Ordered By: Frank Silva on 07-04-2022 Monocytes/100 WBC (Bld) 5.0 % . [facility] Neutrophils Auto (Bld) [#/Vo l]Ordered By: Frank Silva on 07-04-2022 Neutrophils (Bld) [#/Vol] 6.9 10*3/uL 1.8-7.7 [facility] Neutrophils/100 WBC Auto (Bl d)Ordered By: Frank Silva on 07-04-2022 Neutrophils/100 WBC (Bld) 79.2 % . [facility] Nitrite Test strip Ql (U)Ord ered By: Frank Silva on 07-04-2022 Nitrite Ql (U) Negative Negative [facility] No Panel InformationOrdered By: Frank Silva on 07-04-2022 Estimated GFR () > 60 mL/Min [facility] Comment on above: GFR estimated refere nce range: According to KDOQI guidelines, <60 ml/min/1.73m2 is sufficient to diagnose a patient with chronic kidney disease. Pharmacy Creatinine Clearance (Chem 98.82 [facility] Platelet mean volume Auto (B ld) [Entitic vol]Ordered By: Frank Silva on 07-04-2022 Platelet mean volume (Bld) [Entitic vol] 9.5 fL 6.3-10.7 [facility] Platelet poor plasma interna tional normalized ratio (INR) by coagulation assay (relatOrdered By: Frank Silva on 07-04-2022 INR Coag (PPP) [Relative time] 1.2 {INR} [facility] Comment on above: INR Therapeutic [...] 07-04-2022 Platelets (Bld) [#/Vol] 258 10*3/uL 150-450 [facility] Protein Auto test strip (U) [Mass/Vol]Ordered By: Frank Silva on 07-04-2022 Protein (U) [Mass/Vol] Negative [facility] Protein [Mass/volume] in Ser um or PlasmaOrdered By: Frank Silva on 07-04-2022 Protein [Mass/Vol] 6.9 g/dL 6.1-7.9 [facility] RBC Auto (Bld) [#/Vol]Ordere d By: Frank Silva on 07-04-2022 RBC (Bld) [#/Vol] 4.54 10*6/uL 3.60-5.00 [facility] Serum or plasma alanine keene otransferase measurement without P-5'-P (enzymatic activiOrdered By: Frank Silva on 07-04-2022 ALT No additional P-5'-P [Catalytic activity/Vol] 15 U/L 10-60 [facility] Serum or plasma albumin/glob ulin mass ratioOrdered By: Frank Silva on 07-04-2022 Albumin/Globulin [Mass ratio] 1.1 {ratio} [facility] Serum or plasma alkaline jared sphatase measurement (enzymatic activity/volume)Ordered By: Frank Silva on 07-04-2022 ALP [Catalytic activity/Vol] 50 U/L 32-92 [facility] Serum or plasma anion gap de terminationOrdered By: Frank Silva on 07-04-2022 Anion gap [Moles/Vol] 11.7 mmol/L 6.0-15.0 [facility] Serum or plasma aspartate am inotransferase measurement (enzymatic activity/volume)Ordered By: Frank Silva on 07-04-2022 AST [Catalytic activity/Vol] 14 U/L 10-42 [facility] Serum or plasma calcium marychuy urement (mass/volume)Ordered By: Frank Silva on 07-04-2022 Calcium [Mass/Vol] 8.9 mg/dL 8.2-10.2 [facility] Serum or plasma chloride nemo surement (moles/volume)Ordered By: Frank Silva on 07-04-2022 Chloride [Moles/Vol] 105 mmol/L 95-114 [facility] Serum or plasma glucose marychuy urement (mass/volume)Ordered By: Frank Silva on 07-04-2022 Glucose [Mass/Vol] 97 mg/dL 70-100 [facility] Comment on above: ADA recommended refe rence rangeRandom Glucose Reference Range is dependent on time and content of last meal. Glucose of more than 200 mg/dL in a nonstressed, ambulatory subject supports the diagnosis of Diabetes Mellitus. Serum or plasma non-glucuron idated bilirubin measurement (mass/volume)Ordered By: Frank Silva on 07-04-2022 Bilirubin.indirect [Mass/Vol] TNP [facility] Comment on above: Test not performed Serum or plasma potassium me asurement (moles/volume)Ordered By: Frank Silva on 07-04-2022 Potassium [Moles/Vol] 3.7 mmol/L 3.5-5.1 [facility] Serum or plasma sodium measu rement (moles/volume)Ordered By: Frank Silva on 07-04-2022 Sodium [Moles/Vol] 136 mmol/L 136-146 [facility] Serum or plasma total biliru bin measurement (mass/volume)Ordered By: Frank Silva on 07-04-2022 Bilirubin [Mass/Vol] 0.5 mg/dL 0.3-1.2 [facility] Serum or plasma total carbon dioxide measurement (moles/volume)Ordered By: Frank Silva on 07-04-2022 CO2 [Moles/Vol] 23.0 mmol/L 22.0-30.0 [facility] Serum or plasma urea nitroge n measurement (mass/volume)Ordered By: Frank Silva on 07-04-2022 Urea nitrogen [Mass/Vol] 6 mg/dL 9-23 [facility] Specific gravity Auto test s trip (U) [Rel density]Ordered By: Frank Silva on 07-04-2022 Specific gravity (U) [Rel density] 1.010 1.001-1.03 0 [facility] Squamous epithelial cells de tection in urine sediment by light microscopyOrdered By: Frank Silva on 07-04-2022 Epithelial cells.squamous LM Ql (Urine sed) 0-1 [HPF] 0-2 [facility] Urine bacteria detection by automated methodOrdered By: Frank Silva on 07-04-2022 Bacteria Auto Ql (U) None seen None Seen [facility] Urine clarity by refractomet ry automatedOrdered By: Frank Silva on 07-04-2022 Clarity Refractometry automated (U) Clear Clear [facility] Urine glucose measurement by automated test strip (mass/volume)Ordered By: Frank Silva on 07-04-2022 Glucose Auto test strip (U) [Mass/Vol] Normal mg/dL Normal [facility] Urine hemoglobin detection b y automated test stripOrdered By: Frank Silva on 07-04-2022 Hemoglobin Auto test strip Ql (U) Trace Negative [facility] Urine leukocyte esterase det ection by automated test stripOrdered By: Frank Silva on 07-04-2022 Leukocyte esterase Auto test strip Ql (U) 1+ Negative [facility] Urobilinogen Auto test strip (U) [Mass/Vol]Ordered By: Frank Silva on 07-04-2022 Urobilinogen (U) [Mass/Vol] Normal mg/dL Normal [facility] pH Auto test strip (U)Ordere d By: Frank Silva on 07-04-2022 pH (U) 6.5 [pH] 5.0-9.0 [facility] Activated partial thrombopla stin time (aPTT) in platelet poor plasma by coagulation aOrdered By: Marvin Serrano on 06-01-2022 aPTT Coag (PPP) [Time] 30.4 s 25.1-36.5 [facility] Basophils Auto (Bld) [#/Vol] Ordered By: Marvin Serrano on 06-01-2022 Basophils (Bld) [#/Vol] 0.1 10*3/uL 0.0-0.2 [facility] Basophils/100 WBC Auto (Bld) Ordered By: Marvin Serrano on 06-01-2022 Basophils/100 WBC (Bld) 1.1 % . [facility] Bilirubin Test strip Ql (U)O rdered By: Marvin Serrano on 06-01-2022 Bilirubin Ql (U) Negative Negative [facility] Blood hemoglobin measurement (mass/volume)Ordered By: Marvin Serrano on 06-01-2022 Hemoglobin (Bld) [Mass/Vol] 10.1 g/dL 11.8-15.4 [facility] Blood leukocytes automated c ount (number/volume)Ordered By: Marvin Serrano on 06-01-2022 WBC (Bld) [#/Vol] 7.6 10*3/uL 4.5-11.0 [facility] Body fluid albumin measureme nt (mass/volume)Ordered By: Marvin Serrano on 06-01-2022 Albumin (Body fld) [Mass/Vol] 3.7 g/dL 3.2-5.5 [facility] Color Auto (U)Ordered By: Dane Serrano on 06-01-2022 Color (U) Yellow Yellow [facility] Creatinine and Glomerular fi ltration rate.predicted panel (S/P/Bld)Ordered By: Marvin Serrano on 06-01-2022 Creatinine [Mass/Vol] 0.82 mg/dL 0.44-1.03 [facility] Eosinophils Auto (Bld) [#/Vo l]Ordered By: Marvin Serrano on 06-01-2022 Eosinophils (Bld) [#/Vol] 0.2 10*3/uL 0.0-0.45 [facility] Eosinophils/100 WBC Auto (Bl d)Ordered By: Marvin Serrano on 06-01-2022 Eosinophils/100 WBC (Bld) 2.4 % . [facility] Erythrocyte distribution wid th Auto (RBC) [Ratio]Ordered By: Marvin Serrano on 06-01-2022 Erythrocyte distribution width (RBC) [Ratio] 14.3 % 11.9-15.3 [facility] Estimated glomerular filtrat ion rate (GFR) non- AmericanOrdered By: Marvin Serrano on 06-01-2022 GFR/1.73 sq M.predicted among non-blacks MDRD (S/P/Bld) [Vol rate/Area] > 60 mL/Min [facility] Globulin Calc (S) [Mass/Vol] Ordered By: Marvin Serrano on 06-01-2022 Globulin (S) [Mass/Vol] 3.4 g/dL [facility] HCG ( test) IA.rapi d Ql (U)Ordered By: Marvin Serrano on 06-01-2022 HCG ( test) Ql (U) Negative [facility] Hematocrit Auto (Bld) [Volum e fraction]Ordered By: Marvin Serrano on 06-01-2022 Hematocrit (Bld) [Volume fraction] 32.2 % 34.0-46.4 [facility] Ketones Auto test strip (U) [Mass/Vol]Ordered By: Marvin Serrano on 06-01-2022 Ketones (U) [Mass/Vol] Negative Negative [facility] - CoagulationOrde red By: Marvin Serrano on 06-01-2022 PT Coag (PPP) [Time] 12.4 s 9.0-12.9 [facility] - Hematology and Cell countsOrdered By: Marvin Serrano on 06-01-2022 Nucleated RBC/100 WBC (Bld) [Ratio] 0.1 % 0-0.5 [facility] Lymphocytes Auto (Bld) [#/Vo l]Ordered By: Marvin Serrano on 06-01-2022 Lymphocytes (Bld) [#/Vol] 2.7 10*3/uL 1.00-4.8 [facility] Lymphocytes/100 WBC Auto (Bl d)Ordered By: Marvin Serrano on 06-01-2022 Lymphocytes/100 WBC (Bld) 35.8 % . [facility] MCH Auto (RBC) [Entitic mass ]Ordered By: Marvin Serrnao on 06-01-2022 MCH (RBC) [Entitic mass] 22.0 pg 24.7-34.3 [facility] MCHC Auto (RBC) [Mass/Vol]Or dered By: Marvin Serrano on 06-01-2022 MCHC (RBC) [Mass/Vol] 31.3 g/dL 32.0-35.0 [facility] MCV Auto (RBC) [Entitic vol] Ordered By: Marvin Serrano on 06-01-2022 MCV (RBC) [Entitic vol] 70.4 fL 80-100 [facility] Monocytes Auto (Bld) [#/Vol] Ordered By: Marvin Serrano on 06-01-2022 Monocytes (Bld) [#/Vol] 0.5 10*3/uL 0.0-0.8 [facility] Monocytes/100 WBC Auto (Bld) Ordered By: Marvin Serrano on 06-01-2022 Monocytes/100 WBC (Bld) 7.1 % . [facility] Neutrophils Auto (Bld) [#/Vo l]Ordered By: Marvin Serrano on 06-01-2022 Neutrophils (Bld) [#/Vol] 4.1 10*3/uL 1.8-7.7 [facility] Neutrophils/100 WBC Auto (Bl d)Ordered By: Marvin Serrano on 06-01-2022 Neutrophils/100 WBC (Bld) 53.6 % . [facility] Nitrite Test strip Ql (U)Ord ered By: Marvin Serrano on 06-01-2022 Nitrite Ql (U) Negative Negative [facility] No Panel InformationOrdered By: Marvin Serrano on 06-01-2022 Estimated GFR () > 60 mL/Min [facility] Comment on above: GFR estimated refere nce range: According to KDOQI guidelines, <60 ml/min/1.73m2 is sufficient to diagnose a patient with chronic kidney disease. Pharmacy Creatinine Clearance (Chem 97.22 [facility] Platelet mean volume Auto (B ld) [Entitic vol]Ordered By: Marvin Serrano on 06-01-2022 Platelet mean volume (Bld) [Entitic vol] 9.9 fL 6.3-10.7 [facility] Platelet poor plasma interna tional normalized ratio (INR) by coagulation assay (relatOrdered By: Marvin Serrano on 06-01-2022 INR Coag (PPP) [Relative time] 1.1 {INR} [facility] Comment on above: INR Therapeutic [...] 06-01-2022 Platelets (Bld) [#/Vol] 218 10*3/uL 150-450 [facility] Protein Auto test strip (U) [Mass/Vol]Ordered By: Marvin Serrano on 06-01-2022 Protein (U) [Mass/Vol] Negative Negative [facility] Protein [Mass/volume] in Ser um or PlasmaOrdered By: Marvin Serrano on 06-01-2022 Protein [Mass/Vol] 7.1 g/dL 6.1-7.9 [facility] RBC Auto (Bld) [#/Vol]Ordere d By: Marvin Serrano on 06-01-2022 RBC (Bld) [#/Vol] 4.57 10*6/uL 3.60-5.00 [facility] Serum or plasma alanine keene otransferase measurement without P-5'-P (enzymatic activiOrdered By: Marvin Serrano on 06-01-2022 ALT No additional P-5'-P [Catalytic activity/Vol] 12 U/L 10-60 [facility] Serum or plasma albumin/glob ulin mass ratioOrdered By: Marvin Serrano on 06-01-2022 Albumin/Globulin [Mass ratio] 1.1 {ratio} [facility] Serum or plasma alkaline jared sphatase measurement (enzymatic activity/volume)Ordered By: Marvin Serrano on 06-01-2022 ALP [Catalytic activity/Vol] 46 U/L 32-92 [facility] Serum or plasma anion gap de terminationOrdered By: Marvin Serrano on 06-01-2022 Anion gap [Moles/Vol] 15.3 mmol/L 6.0-15.0 [facility] Serum or plasma aspartate am inotransferase measurement (enzymatic activity/volume)Ordered By: Marvin Serrano on 06-01-2022 AST [Catalytic activity/Vol] 13 U/L 10-42 [facility] Serum or plasma calcium marychuy urement (mass/volume)Ordered By: Marvin Serrano on 06-01-2022 Calcium [Mass/Vol] 9.1 mg/dL 8.2-10.2 [facility] Serum or plasma chloride nemo surement (moles/volume)Ordered By: Marvin Serrano on 06-01-2022 Chloride [Moles/Vol] 103 mmol/L 95-114 [facility] Serum or plasma glucose marychuy urement (mass/volume)Ordered By: Marvin Serrano on 06-01-2022 Glucose [Mass/Vol] 113 mg/dL 70-100 [facility] Comment on above: ADA recommended [...] on 06-01-2022 Potassium [Moles/Vol] 3.0 mmol/L 3.5-5.1 [facility] Serum or plasma sodium measu rement (moles/volume)Ordered By: Marvin Serrano on 06-01-2022 Sodium [Moles/Vol] 137 mmol/L 136-146 [facility] Serum or plasma total biliru bin measurement (mass/volume)Ordered By: Marvin Serrano on 06-01-2022 Bilirubin [Mass/Vol] 0.4 mg/dL 0.3-1.2 [facility] Serum or plasma total carbon dioxide measurement (moles/volume)Ordered By: Marvin Serrano on 06-01-2022 CO2 [Moles/Vol] 21.7 mmol/L 22.0-30.0 [facility] Serum or plasma urea nitroge n measurement (mass/volume)Ordered By: Marvin Serrano on 06-01-2022 Urea nitrogen [Mass/Vol] 11 mg/dL 9-23 [facility] Specific gravity Auto test s trip (U) [Rel density]Ordered By: Marvin Serrano on 06-01-2022 Specific gravity (U) [Rel density] 1.003 1.001-1.03 0 [facility] Urine clarity by refractomet ry automatedOrdered By: Marvin Serrano on 06-01-2022 Clarity Refractometry automated (U) Clear Clear [facility] Urine glucose measurement by automated test strip (mass/volume)Ordered By: Marvin Serrano on 06-01-2022 Glucose Auto test strip (U) [Mass/Vol] Normal mg/dL Normal [facility] Urine hemoglobin detection b y automated test stripOrdered By: Marvin Serrano on 06-01-2022 Hemoglobin Auto test strip Ql (U) Negative Negative [facility] Urine leukocyte esterase det ection by automated test stripOrdered By: Marvin Serrano on 06-01-2022 Leukocyte esterase Auto test strip Ql (U) Negative Negative [facility] Urobilinogen Auto test strip (U) [Mass/Vol]Ordered By: Marvin Zach on 06-01-2022 Urobilinogen (U) [Mass/Vol] Normal mg/dL Normal [facility] pH Auto test strip (U)Ordere d By: Marvin Serrano on 06-01-2022 pH (U) 7.0 [pH] 5.0-9.0 [facility] Office Visit (Oncology Surge ry)on [...] need for her to return to her [employer] Dr. Pendleton for discussion of ongoing treatment. [...] hoursAbdominal wall (more content not included)... Normal [facility] CT ABD/PELV W [...] Lenny TANNER Date: 2022-04-18 23:01 Normal [facility] ER URINE PROFILEon 2 Bilirubin Ql (U) Negative Normal NEGATIVE [facility] Comment on above: Performed By: #### U MICRO, PREGU, ERUR #### [facility] [address] [address] [address] Adam Mejía Clarity (U) CLEAR Normal CLEAR [facility] Comment on above: Performed By: #### U MICRO, PREGU, ERUR #### [facility] [address] [address] [address] Adam Mejía Color (U) YELLOW Normal YELLOW [facility] Comment on above: Performed By: #### U MICRO, PREGU, ERUR #### [facility] [address] [place] [address] Dr. Adam Mejía ERUAHD A micrscopic examina tion will be performed if indicated. Normal [facility] Comment on above: Performed By: #### U MICRO, PREGU, ERUR #### [facility] [address] [address] [address] Adam Mejía Glucose Ql (U) Negative Normal NEGATIVE [facility] Comment on above: Performed By: #### U MICRO, PREGU, ERUR #### [facility] [address] [address] [address] Adam Mejía Hemoglobin Ql (U) SMALL Abnormal NEGATIVE [facility] Comment on above: Performed By: #### U MICRO, PREGU, ERUR #### [facility] [address] [address] [address] Adam Mejía Ketones Ql (U) >=80 Abnormal NEGATIVE [facility] Comment on above: Performed By: #### U MICRO, PREGU, ERUR #### [facility] [address] [address] [address] Adam Mejía LEUKOCYTES Negative Normal NEGATIVE [facility] Comment on above: Performed By: #### U MICRO, PREGU, ERUR #### [facility] [address] [place] [address] Dr. Adam Mejía Nitrite Ql (U) Negative Normal NEGATIVE [facility] Comment on above: Performed By: #### U MICRO, PREGU, ERUR #### [facility] [address] [place] [address] Dr. Adam Mejía pH (U) 6.5 [pH] Normal 5-9 [facility] Comment on above: Performed By: #### U MICRO, PREGU, ERUR #### [facility] [address] [place] [address] Dr. Adam Mejía SPEC GRAVITY 1.015 Normal 1.005-<=1. 025 [facility] Comment on above: Performed By: #### U MICRO, PREGU, ERUR #### [facility] [address] [place] [address] Dr. Adam Mejía UA PROTEIN Negative Normal NEGATIVE/ TRACE [facility] Comment on above: Performed By: #### U MICRO, PREGU, ERUR #### [facility] [address] [place] [address] Dr. Adam Mejía UR MICRO IND INDICATED Normal [facility] Comment on above: Performed By: #### U MICRO, PREGU, ERUR #### [facility] [address] [place] [address] Dr. Adam Mejía Urobilinogen Qn (U) 0.2 {Brinda'U}/dL Normal 0.2 - 1. 0 [facility] Comment on above: Performed By: #### U MICRO, PREGU, ERUR #### [facility] [address] [place] [address] Dr. Adam Mejía URon 04-18-2022 , QUAL Negative Normal NEGATIVE [facility] Comment on above: Performed By: #### U MICRO, PREGU, ERUR #### [facility] [address] [place] [address] Dr. Adam Mejía URINE MICROSCOPIC ONLYon BACTERIA TRACE Abnormal NONE SEEN [facility] Comment on above: Performed By: #### U MICRO, PREGU, ERUR #### [facility] [address] [place] [address] Dr. Adam Mejía Bacteria identified Cx Nom (U) NOT INDICATED Normal [facility] Comment on above: Performed By: #### U MICRO, PREGU, ERUR #### [facility] [address] [place] [address] Dr. Adam Mejía CAST NONE SEEN Normal NONE SEEN [facility] Comment on above: Performed By: #### U MICRO, PREGU, ERUR #### [facility] [address] [address] [address] Adam Mejía Crystals LM Nom (Urine sed) NONE SEEN Normal NONE SEEN [facility] Comment on above: Performed By: #### U MICRO, PREGU, ERUR #### [facility] [address] [place] [address] Dr. Adam Mejía Epithelial cells LM Ql (Urine sed) FEW Abnormal NONE SEEN /RARE [facility] Comment on above: Performed By: #### U MICRO, PREGU, ERUR #### [facility] [address] [place] [address] Dr. Adam Mejía MUCOUS NONE SEEN Normal NONE SEEN [facility] Comment on above: Performed By: #### U MICRO, PREGU, ERUR #### [facility] [address] [place] [address] Dr. Adam Mejía RBC 0-2 Normal 0-2 [facility] Comment on above: Performed By: #### U MICRO, PREGU, ERUR #### [facility] [address] [place] [address] Dr. Adam Mejía WBC 0-2 Abnormal NONE SEEN [facility] Comment on above: Performed By: #### U MICRO, PREGU, ERUR #### [facility] [address] [place] [address] Dr. Adam Mejía Body fluid albumin measureme nt (mass/volume)Ordered By: Yudelka Lopez on 04-14-2022 Albumin (Body fld) [Mass/Vol] 3.9 g/dL 3.2-5.5 [facility] Creatinine and Glomerular fi ltration rate.predicted panel (S/P/Bld)Ordered By: Yudelka Lopez on 04-14-2022 Creatinine [Mass/Vol] 0.77 mg/dL 0.44-1.03 [facility] Estimated glomerular filtrat ion rate (GFR) non- AmericanOrdered By: Yudelka Lopez on 04-14-2022 GFR/1.73 sq M.predicted among non-blacks MDRD (S/P/Bld) [Vol rate/Area] > 60 mL/Min [facility] Globulin Calc (S) [Mass/Vol] Ordered By: Yudelka Lopez on 04-14-2022 Globulin (S) [Mass/Vol] 3.0 g/dL [facility] No Panel InformationOrdered By: Yudelka Lopez on 04-14-2022 Estimated GFR () > 60 mL/Min [facility] Comment on above: GFR estimated refere nce range: According to KDOQI guidelines, <60 ml/min/1.73m2 is sufficient to diagnose a patient with chronic kidney disease. Pharmacy Creatinine Clearance (Chem N/A [facility] Protein [Mass/volume] in Ser um or PlasmaOrdered By: Yudelka Lopez on 04-14-2022 Protein [Mass/Vol] 6.9 g/dL 6.1-7.9 [facility] Serum or plasma alanine keene otransferase measurement without P-5'-P (enzymatic activiOrdered By: Yudelka Lopez on 04-14-2022 ALT No additional P-5'-P [Catalytic activity/Vol] 13 U/L 10-60 [facility] Serum or plasma albumin/glob ulin mass ratioOrdered By: Yudelka Lopez on 04-14-2022 Albumin/Globulin [Mass ratio] 1.3 {ratio} [facility] Serum or plasma alkaline jared sphatase measurement (enzymatic activity/volume)Ordered By: Yudelka Lopez on 04-14-2022 ALP [Catalytic activity/Vol] 44 U/L 32-92 [facility] Serum or plasma aspartate am inotransferase measurement (enzymatic activity/volume)Ordered By: Yudelka Lopez on 04-14-2022 AST [Catalytic activity/Vol] 14 U/L 10-42 [facility] Serum or plasma calcium marychuy urement (mass/volume)Ordered By: Yudelka Lopez on 04-14-2022 Calcium [Mass/Vol] 9.5 mg/dL 8.2-10.2 [facility] Serum or plasma chloride nemo surement (moles/volume)Ordered By: Yudelka Lopez on 04-14-2022 Chloride [Moles/Vol] 104 mmol/L 95-114 [facility] Serum or plasma glucose marychuy urement (mass/volume)Ordered By: Yudelka Lopez on 04-14-2022 Glucose [Mass/Vol] 85 mg/dL 70-100 [facility] Comment on above: ADA recommended [...] on 04-14-2022 Potassium [Moles/Vol] 4.2 mmol/L 3.5-5.1 [facility] Serum or plasma sodium measu rement (moles/volume)Ordered By: Yudelka Lopez on 04-14-2022 Sodium [Moles/Vol] 136 mmol/L 136-146 [facility] Serum or plasma total biliru bin measurement (mass/volume)Ordered By: Yudelka Lopez on 04-14-2022 Bilirubin [Mass/Vol] 0.2 mg/dL 0.3-1.2 [facility] Serum or plasma total carbon dioxide measurement (moles/volume)Ordered By: Yudelka Lopez on 04-14-2022 CO2 [Moles/Vol] 24.5 mmol/L 22.0-30.0 [facility] Serum or plasma urea nitroge n measurement (mass/volume)Ordered By: Yuedlka Lopez on 04-14-2022 Urea nitrogen [Mass/Vol] 6 mg/dL 9-23 [facility] AMYLASEon 04-11-2022 Amylase [Catalytic activity/Vol] 54 U/L Normal 25-115 [facility] Comment on above: Performed By: #### A MY, CMP, LIPA #### [facility] [address] [address] [address] Adam Mejía CBC AUTO DIFFon 04-11-2022 BASO # 0.0 103/ul Normal 0.0-0.1 [facility] Comment on above: Performed By: #### C BC #### [facility] [address] [address] [address] Adam Mejía Basophils/100 WBC (Bld) 0.2 % Normal 0.2-2.0 [facility] Comment on above: Performed By: #### C BC #### [facility] [address] [address] [address] Adam Mejía EO # 0.1 103/ul Normal 0.0-0.7 [facility] Comment on above: Performed By: #### C BC #### [facility] [address] [address] [address] Adam Mejía Eosinophils/100 WBC (Bld) 0.6 % Critically low 0.9-7.0 [facility] Comment on above: Performed By: #### C BC #### [facility] [address] [address] [address] Adam Mejía Erythrocyte distribution width (RBC) [Ratio] 13.9 % Normal 11.0-15.0 [facility] Comment on above: Performed By: #### C BC #### [facility] [address] [address] [address] Adam Mejía Hematocrit (Bld) [Volume fraction] 31.4 % Critically low 36.0-48.0 [facility] Comment on above: Performed By: #### C BC #### [facility] [address] [address] [address] Adam Mejía Hemoglobin (Bld) [Mass/Vol] 9.8 g/dL Critically low 12.0-16.0 [facility] Comment on above: Performed By: #### C BC #### [facility] [address] [address] [address] Adam Mejía IG # 0.03 10e3/ul Normal 0.00-0.03 [facility] Comment on above: Performed By: #### C BC #### [facility] [address] [place] [address] Dr. Adam Mejía IG % 0.3 % Normal 0.0-0.5 [facility] Comment on above: Performed By: #### C BC #### [facility] [address] [place] [address] Dr. Adam Mejía LYMPH # 1.1 103/ul Critically low 1.2-3.8 [facility] Comment on above: Performed By: #### C BC #### [facility] [address] [place] [address] Dr. Adam Mejía Lymphocytes/100 WBC (Bld) 9.3 % Critically low 20.5-60.0 [facility] Comment on above: Performed By: #### C BC #### [facility] [address] [place] [address] Dr. Adam Mejía MANUAL DIFF REQ NO Normal [facility] Comment on above: Performed By: #### C BC #### [facility] [address] [place] [address] Dr. Adam Mejía MCH (RBC) [Entitic mass] 22.5 pg Critically low 26.7-34.0 [facility] Comment on above: Performed By: #### C BC #### [facility] [address] [place] [address] Dr. Adam Mejía MCHC (RBC) [Mass/Vol] 31.2 g/dL Normal 29.9-35.2 [facility] Comment on above: Performed By: #### C BC #### [facility] [address] [place] [address] Dr. Adam Mejía MCV (RBC) [Entitic vol] 72.0 fL Critically low 81.0-99.0 [facility] Comment on above: Performed By: #### C BC #### [facility] [address] [place] [address] Dr. Adam Mejía MONO # 0.6 103/ul Normal 0.3-0.8 [facility] Comment on above: Performed By: #### C BC #### [facility] [address] [place] [address] Dr. Adam Mejía Monocytes/100 WBC (Bld) 4.6 % Normal 1.7-12.0 [facility] Comment on above: Performed By: #### C BC #### [facility] [address] [place] [address] Dr. Adam Mejía NEUT # 10.2 103/ul Critically high 1.4-6.5 [facility] Comment on above: Performed By: #### C BC #### [facility] [address] [place] [address] Dr. Adam Mejía Neutrophils/100 WBC (Bld) 85.0 % Critically high 43.0-75.0 [facility] Comment on above: Performed By: #### C BC #### [facility] [address] [place] [address] Dr. Adam Mejía Platelet mean volume (Bld) [Entitic vol] 12.1 fL Normal 9.5-13.5 [facility] Comment on above: Performed By: #### C BC #### [facility] [address] [place] [address] Dr. Adam Mejía PLT 270 103/ul Normal 150-450 [facility] Comment on above: Performed By: #### C BC #### [facility] [address] [place] [address] Dr. Adam Mejía RBC 4.36 106/ul Normal 4.20-5.40 [facility] Comment on above: Performed By: #### C BC #### [facility] [address] [place] [address] Dr. Adam Mejía WBC 12.0 103/ul Critically high 4.0-11.0 [facility] Comment on above: Performed By: #### C BC #### [facility] [address] [place] [address] ABD/PELV W CONon [...] NADIA MORROW Date: 2022-04-11 07:25 Normal [facility] LIPASEon 04-11-2022 Lipase [Catalytic activity/Vol] 152.0 U/L Normal 73.0-393.0 [facility] Comment on above: Performed By: #### A MY, CMP, LIPA #### [facility] [address] [place] [address] Dr. Adam Mejía PREG HCG QUALon 04-11-2022 , QUAL Negative Normal NEGATIVE [facility] Comment on above: Performed By: #### U MICRO, PREGU, ERUR #### [facility] [address] [place] [address] Dr. Adam Mejía PROF 14(COMP METB)on 022 Albumin [Mass/Vol] 3.8 g/dL Normal 3.4-5.0 [facility] Comment on above: Performed By: #### U MICRO, PREGU, ERUR #### [facility] [address] [address] [address] Adam Mejía Albumin/Globulin [Mass ratio] 0.9 {ratio} Normal [facility] Comment on above: Performed By: #### U MICRO, PREGU, ERUR #### [facility] [address] [address] [address] Adam Mejía ALP [Catalytic activity/Vol] 51 U/L Normal 46-116 [facility] Comment on above: Performed By: #### U MICRO, PREGU, ERUR #### [facility] [address] [place] [address] Dr. Adam Mejía ALT [Catalytic activity/Vol] 11 U/L Critically low 14-59 [facility] Comment on above: Performed By: #### U MICRO, PREGU, ERUR #### [facility] [address] [place] [address] Dr. Adam Mejía Anion gap [Moles/Vol] 11.9 mmol/L Normal [facility] Comment on above: Performed By: #### U MICRO, PREGU, ERUR #### [facility] [address] [address] [address] Adam Mejía AST [Catalytic activity/Vol] 14 U/L Critically low 15-37 [facility] Comment on above: Performed By: #### U MICRO, PREGU, ERUR #### [facility] [address] [address] [address] Adam Mejía Bilirubin [Mass/Vol] 0.4 mg/dL Normal 0.2-1.0 [facility] Comment on above: Performed By: #### U MICRO, PREGU, ERUR #### [facility] [address] [place] [address] Dr. Adam Mejía Calcium [Mass/Vol] 9.4 mg/dL Normal 8.5-10.1 [facility] Comment on above: Performed By: #### U MICRO, PREGU, ERUR #### [facility] [address] [place] [address] Dr. Adam Mejía Chloride [Moles/Vol] 104 mmol/L Normal 98-107 [facility] Comment on above: Performed By: #### U MICRO, PREGU, ERUR #### [facility] [address] [address] [address] Adam Mejía CO2 [Moles/Vol] 26.1 mmol/L Normal 21.0-32.0 [facility] Comment on above: Performed By: #### U MICRO, PREGU, ERUR #### [facility] [address] [address] [address] Adam Mejía Creatinine [Mass/Vol] 0.78 mg/dL Normal 0.55-1.02 [facility] Comment on above: Performed By: #### U MICRO, PREGU, ERUR #### [facility] [address] [place] [address] Dr. Adam Mejía EGFR-AF LEBANESE >60 Normal >=60 [facility] Comment on above: Performed By: #### U MICRO, PREGU, ERUR #### [facility] [address] [place] [address] Dr. Adam Mejía EGFR-NON AF LEBANESE >60 Normal >=60 [facility] Comment on above: Performed By: #### U MICRO, PREGU, ERUR #### [facility] [address] [place] [address] Dr. Adam Mejía Globulin (S) [Mass/Vol] 4.1 g/dL Normal [facility] Comment on above: Performed By: #### U MICRO, PREGU, ERUR #### [facility] [address] [address] [address] Adam Mejía Glucose [Mass/Vol] 111 mg/dL Critically high 74-106 T [facility] Comment on above: Performed By: #### U MICRO, PREGU, ERUR #### [facility] [address] [place] [address] Dr. Adam Mejía Potassium [Moles/Vol] 4.0 mmol/L Normal 3.5-5.1 [facility] Comment on above: Performed By: #### U MICRO, PREGU, ERUR #### [facility] [address] [place] [address] Dr. Adam Mejía Protein [Mass/Vol] 7.9 g/dL Normal 6.4-8.2 [facility] Comment on above: Performed By: #### U SETH GAMEZ, ERUR #### [facility] [address] [address] [address] Adam Mejía Sodium [Moles/Vol] 138 mmol/L Normal 136-145 [facility] Comment on above: Performed By: #### U PARI GAMEZU, ERUR #### [facility] [address] [address] [address] Adam Mejía Urea nitrogen [Mass/Vol] 10.0 mg/dL Normal 7.0-18.0 [facility] Comment on above: Performed By: #### SETH ELLINGTON, ERUR #### [facility] [address] [address] [address] Adam Mejía Urea nitrogen/Creatinine [Mass ratio] 12.8 mg/mg Normal [facility] Comment on above: Performed By: #### PARI ELLINGTONU, ERUR #### [facility] [address] [address] [address] Adam Mejía XR ABD FLAT UP_PA [...] by: NADIA MORROW Date: 2022-04-11 06:26 Normal [facility] Blood Pressure Cuff Sizeon 0 04-07-2022 Tobacco use status [facility] b[facility] Office Visit (Oncology Surge ry)on 04-07-2022 Follow-up visit Diagnoses/Problems Assessed Abdominal wall mass (788.30) (R22.2) Orders Abdominal wall mass Continue: Ondansetron [...] return. The patient will return to her [employer] Dr. Pendleton for discussion of ongoing treatment. [...] aPTT Coag (PPP) [Time] 29.4 s 25.1-36.5 [facility] Albumin [Mass/volume] in Ser um or PlasmaOrdered By: Frank Silva on 04-04-2022 Albumin [Mass/Vol] 3.6 g/dL 3.2-5.5 [facility] Automated erythrocytes count in urine sediment (number/area)Ordered By: Janette Dior on 04-04-2022 RBC Auto (Urine sed) [#/Area] 20-49 [HPF] 0-4 [facility] Automated leukocytes count i n urine sediment (number/area)Ordered By: Janette Dior on 04-04-2022 WBC Auto (Urine sed) [#/Area] 10-19 [HPF] 0-4 [facility] Basophils Auto (Bld) [#/Vol] Ordered By: Frank Silva on 04-04-2022 Basophils (Bld) [#/Vol] 0.0 10*3/uL 0.0-0.2 [facility] Basophils/100 WBC Auto (Bld) Ordered By: Frank Silva on 04-04-2022 Basophils/100 WBC (Bld) 0.4 % . [facility] Bilirubin Test strip Ql (U)O rdered By: Janette Dior on 04-04-2022 Bilirubin Ql (U) Negative Negative [facility] Blood hemoglobin measurement (mass/volume)Ordered By: Frank Silva on 04-04-2022 Hemoglobin (Bld) [Mass/Vol] 10.0 g/dL 11.8-15.4 [facility] Blood leukocytes automated c ount (number/volume)Ordered By: Frank Silva on 04-04-2022 WBC (Bld) [#/Vol] 9.8 10*3/uL 4.5-11.0 [facility] Color Auto (U)Ordered By: Anatoliy Dior on 04-04-2022 Color (U) Yellow Yellow [facility] Creatinine and Glomerular fi ltration rate.predicted panel (S/P/Bld)Ordered By: Frank Silva on 04-04-2022 Creatinine [Mass/Vol] 0.93 mg/dL 0.44-1.03 [facility] Eosinophils Auto (Bld) [#/Vo l]Ordered By: Frank Silva on 04-04-2022 Eosinophils (Bld) [#/Vol] 0.0 10*3/uL 0.0-0.45 [facility] Eosinophils/100 WBC Auto (Bl d)Ordered By: Frank Silva on 04-04-2022 Eosinophils/100 WBC (Bld) 0.3 % . [facility] Erythrocyte distribution wid th Auto (RBC) [Ratio]Ordered By: Frank Silva on 04-04-2022 Erythrocyte distribution width (RBC) [Ratio] 14.1 % 11.9-15.3 [facility] Estimated glomerular filtrat ion rate (GFR) non- AmericanOrdered By: Frank Silva on 04-04-2022 GFR/1.73 sq M.predicted among non-blacks MDRD (S/P/Bld) [Vol rate/Area] > 60 mL/Min [facility] Globulin Calc (S) [Mass/Vol] Ordered By: Frank Silva on 04-04-2022 Globulin (S) [Mass/Vol] 3.1 g/dL [facility] HCG ( test) IA.rapi d Ql (U)Ordered By: Janette Dior on 04-04-2022 HCG ( test) Ql (U) Negative [facility] HCG ( test) IA.rapi d Ql (U)Ordered By: Frank Silva on 04-04-2022 HCG ( test) Ql (U) Negative [facility] Hematocrit Auto (Bld) [Volum e fraction]Ordered By: Frank Silva on 04-04-2022 Hematocrit (Bld) [Volume fraction] 31.9 % 34.0-46.4 [facility] Ketones Auto test strip (U) [Mass/Vol]Ordered By: Janette Dior on 04-04-2022 Ketones (U) [Mass/Vol] 4+ Negative Fi [facility] - Chemistry and C hemistry - challengeOrdered By: Frank Silva on 04-04-2022 Natriuretic peptide B (Bld) [Mass/Vol] 44.0 pg/mL 5-100 [facility] - CoagulationOrde red By: Frank Silva on 04-04-2022 PT Coag (PPP) [Time] 14.0 s 9.0-12.9 [facility] - Hematology and Cell countsOrdered By: Frank Silva on 04-04-2022 Nucleated RBC/100 WBC (Bld) [Ratio] 0.0 % 0-0.5 [facility] - UrinalysisOrder ed By: Janette Dior on 04-04-2022 Hyaline casts LM Ql (Urine sed) 0-8 [LPF] 0-8 [facility] Lymphocytes Auto (Bld) [#/Vo l]Ordered By: Frank Silva on 04-04-2022 Lymphocytes (Bld) [#/Vol] 2.1 10*3/uL 1.00-4.8 [facility] Lymphocytes/100 WBC Auto (Bl d)Ordered By: Frank Silva on 04-04-2022 Lymphocytes/100 WBC (Bld) 21.5 % . [facility] MCH Auto (RBC) [Entitic mass ]Ordered By: Frank Silva on 04-04-2022 MCH (RBC) [Entitic mass] 22.2 pg 24.7-34.3 [facility] MCHC Auto (RBC) [Mass/Vol]Or dered By: Frank Silva on 04-04-2022 MCHC (RBC) [Mass/Vol] 31.2 g/dL 32.0-35.0 [facility] MCV Auto (RBC) [Entitic vol] Ordered By: Frank Silva on 04-04-2022 MCV (RBC) [Entitic vol] 71.2 fL 80-100 [facility] Monocytes Auto (Bld) [#/Vol] Ordered By: Frank Silva on 04-04-2022 Monocytes (Bld) [#/Vol] 0.7 10*3/uL 0.0-0.8 [facility] Monocytes/100 WBC Auto (Bld) Ordered By: Frank Silva on 04-04-2022 Monocytes/100 WBC (Bld) 6.9 % . [facility] Neutrophils Auto (Bld) [#/Vo l]Ordered By: Frank Silva on 04-04-2022 Neutrophils (Bld) [#/Vol] 7.0 10*3/uL 1.8-7.7 [facility] Neutrophils/100 WBC Auto (Bl d)Ordered By: Frank Silva on 04-04-2022 Neutrophils/100 WBC (Bld) 70.9 % . [facility] Nitrite Test strip Ql (U)Ord ered By: Janette Dior on 04-04-2022 Nitrite Ql (U) Negative Negative [facility] No Panel InformationOrdered By: Frank Silva on 04-04-2022 Estimated GFR () > 60 mL/Min [facility] Comment on above: GFR estimated refere nce range: According to KDOQI guidelines, <60 ml/min/1.73m2 is sufficient to diagnose a patient with chronic kidney disease. Pharmacy Creatinine Clearance (Chem 84.97 [facility] Platelet mean volume Auto (B ld) [Entitic vol]Ordered By: Frank Silva on 04-04-2022 Platelet mean volume (Bld) [Entitic vol] 9.6 fL 6.3-10.7 [facility] Platelet poor plasma interna tional normalized ratio (INR) by coagulation assay (relatOrdered By: Frank Silva on 04-04-2022 INR Coag (PPP) [Relative time] 1.2 {INR} [facility] Comment on above: INR Therapeutic [...] 04-04-2022 Platelets (Bld) [#/Vol] 224 10*3/uL 150-450 [facility] Protein Auto test strip (U) [Mass/Vol]Ordered By: Janette Dior on 04-04-2022 Protein (U) [Mass/Vol] Trace mg/dL Negative F [facility] Protein [Mass/volume] in Ser um or PlasmaOrdered By: Frank Silva on 04-04-2022 Protein [Mass/Vol] 6.7 g/dL 6.1-7.9 [facility] RBC Auto (Bld) [#/Vol]Ordere d By: Frank Silva on 04-04-2022 RBC (Bld) [#/Vol] 4.49 10*6/uL 3.60-5.00 [facility] Serum or plasma alanine keene otransferase measurement without P-5'-P (enzymatic activiOrdered By: Frank Silva on 04-04-2022 ALT No additional P-5'-P [Catalytic activity/Vol] 15 U/L 10-60 [facility] Serum or plasma albumin/glob ulin mass ratioOrdered By: Frank Silva on 04-04-2022 Albumin/Globulin [Mass ratio] 1.2 {ratio} [facility] Serum or plasma alkaline jared sphatase measurement (enzymatic activity/volume)Ordered By: Frank Silva on 04-04-2022 ALP [Catalytic activity/Vol] 48 U/L 32-92 [facility] Serum or plasma aspartate am inotransferase measurement (enzymatic activity/volume)Ordered By: Frank Silva on 04-04-2022 AST [Catalytic activity/Vol] 15 U/L 10-42 [facility] Serum or plasma calcium marychuy urement (mass/volume)Ordered By: Frank Silva on 04-04-2022 Calcium [Mass/Vol] 9.0 mg/dL 8.2-10.2 [facility] Serum or plasma chloride nemo surement (moles/volume)Ordered By: Frank Silva on 04-04-2022 Chloride [Moles/Vol] 102 mmol/L 95-114 [facility] Serum or plasma glucose marychuy urement (mass/volume)Ordered By: Frank Silva on 04-04-2022 Glucose [Mass/Vol] 92 mg/dL 70-100 [facility] Comment on above: ADA recommended refe rence range Random Glucose Reference Range is dependent on time and content of last meal. Glucose of more than 200 mg/dL in a nonstressed, ambulatory subject supports the diagnosis of Diabetes Mellitus. Serum or plasma potassium me asurement (moles/volume)Ordered By: Frank Silva on 04-04-2022 Potassium [Moles/Vol] 3.1 mmol/L 3.5-5.1 [facility] Serum or plasma sodium measu rement (moles/volume)Ordered By: Frank Silva on 04-04-2022 Sodium [Moles/Vol] 137 mmol/L 136-146 [facility] Serum or plasma total biliru bin measurement (mass/volume)Ordered By: Frank Silva on 04-04-2022 Bilirubin [Mass/Vol] 0.7 mg/dL 0.3-1.2 [facility] Serum or plasma total carbon dioxide measurement (moles/volume)Ordered By: Frank Silva on 04-04-2022 CO2 [Moles/Vol] 23.6 mmol/L 22.0-30.0 [facility] Serum or plasma urea nitroge n measurement (mass/volume)Ordered By: Frank Silva on 04-04-2022 Urea nitrogen [Mass/Vol] 8 mg/dL 9-23 [facility] Specific gravity Auto test s trip (U) [Rel density]Ordered By: Janette Dior on 04-04-2022 Specific gravity (U) [Rel density] 1.027 1.001-1.03 0 [facility] Squamous epithelial cells de tection in urine sediment by light microscopyOrdered By: Janette Dior on 04-04-2022 Epithelial cells.squamous LM Ql (Urine sed) 10-19 [HPF] 0-2 [facility] Troponin I.cardiac [Mass/vol ume] in Serum or Plasma by High sensitivity methodOrdered By: Frank Silva on 04-04-2022 Troponin I.cardiac High sensitivity method [Mass/Vol] 3 pg/mL 0-15 [facility] Urine bacteria detection by automated methodOrdered By: Janette Dior on 04-04-2022 Bacteria Auto Ql (U) None seen None Seen [facility] Urine clarity by refractomet ry automatedOrdered By: Janette Dior on 04-04-2022 Clarity Refractometry automated (U) Cloudy Clear [facility] Urine glucose measurement by automated test strip (mass/volume)Ordered By: Janette Dior on 04-04-2022 Glucose Auto test strip (U) [Mass/Vol] Normal mg/dL Normal [facility] Urine hemoglobin detection b y automated test stripOrdered By: Janette Dior on 04-04-2022 Hemoglobin Auto test strip Ql (U) 2+ Negative [facility] Urine leukocyte esterase det ection by automated test stripOrdered By: Janette Dior on 04-04-2022 Leukocyte esterase Auto test strip Ql (U) Negative Negative [facility] Urine sediment renal epithel ial cell count by microscopy (number/high power field)Ordered By: Janette Dior on 04-04-2022 Epithelial cells.renal LM.HPF (Urine sed) [#/Area] None seen [HPF] 0-1 [facility] Urobilinogen Auto test strip (U) [Mass/Vol]Ordered By: Janette Dior on 04-04-2022 Urobilinogen (U) [Mass/Vol] Normal mg/dL Normal [facility] pH Auto test strip (U)Ordere d By: Janette Dior on 04-04-2022 pH (U) 6.0 [pH] 5.0-9.0 [facility] HCG,URINEon 04-03-2022 Beta HCG ( test) Ql (U) Negative Normal Negative [facility] Comment on above: Order Comment: poct Performed By: #### H CGU #### [facility] [address] [place] [address] No Panel Informationon 04-03 [facility] Work Phone: Order Reconciliationon 04-03 [...] be shared with your follow-up providers (doctor, stapler hand, physical therapist, etc.). Follow Up with Dr. Crocker in [address] or operate motor vehicles for 24 hours and while taking narcotic pain me (more content not included)... Normal [facility] Surgical Pathology Depar tmenton 04-03-2022 [facility] Surgical Pathology Department Name LEANDRA FONSECA Pathologist: REBECCA LAN MD Date of Procedure: 04/03/2022 Date Received: 04/04/2022 Date Reported 04/17/2022 Submitting Physician: SLY CROCKER MD Location: [facility] Surg Other External # FINAL DIAGNOSIS A. LEFT ABDOMINAL WALL ENDOMETRIOMA: --ENDOMETRIOSIS INVOLVING SUBCUTANEOUS FIBROVASCULAR AND ADIPOSE TISSUES. Electronically Signed Out By REBECCA LAN MD/MRG1 By the signature on this report, the individual or group listed as making the Final Interpretation/Diagnosis certifies that they have reviewed this case. [place] [address] Clinical History: Physician Contact Number: [id number] Fixative (A): Formalin Clinical Diagnosis History LEFT [...] fibrous cut surfaces admixed with yellow adipose. Tower Equipment Installer sections are submitted in 10 cassettes. Summary of Cassettes: Specimen Label Site A 1-2 medial tip, full-thickness, bisected 3-4 lateral, full-thickness, bisected 5-7 sales representative livestock sections of fibrous tissue to closest superior margin 8-10 sales representative livestock sections of fibrous tissue to closest inferior margin mjr/04/06/2022 [facility] Department of Pathology [address] [place] [address] Normal [facility] Comment on above: Performed By: #### U [facility] #### [facility] Surgical Pathology Department [id number] [facility] [address] Urine Teston 04-03 HCG ( test) Ql (U) Negative Negative [facility] 7239 Work Phone: COVID-19 Positive/NegativeOr dered By: Sly Crocker on 03-31-2022 SARS-CoV-2 (COVID-19) N gene HIRAM+probe Ql (Resp) Negative Negative [facility] Comment on above: Testing for SARS-CoV -2 by RT-PCR This test was developed and its performance characteristics determined by [employer] ([employer]) and validated at the [facility]. This test has not been [...] (COVID-19) RNA HIRAM+probe Ql (Unsp spec) N/A [facility] Patient Profile - Preop v3on 03-31-2022 Patient Profile - Preop v3 Patient Profile - Preop: Initial Info: Patient DemographicsName: LEANDRA FONSECA Date: 1990 Address: [address] [place] [address] Primary Phone [phone] Instructions Givenappropriate clothing, bring list of medications, bring responsible adult as the driver guard (procedure may be cancelled if no driver guard), insurance information, remove jewerly/piercings How to be AddressedAshley Spoken Language PreferredEnglish Source of Informationpatient Stated Reason for AdmissionLeft abdominal wall tumor resection Primary Contact Name and NumberRena Escalante [phone] Medications Brought to Hospitalno General Health: Weight in kg75.4 kilogram(s) Weight in cyy017.2 pound(s) Weight Methodactual (measured) Scale Typestanding Height [...] child(uriah) Living Arrangementshouse Resource/Environmental Concernsnone Anticipated Transition Totaylor Services Anticipated at Transitionnone Tobacco Use: Tobacco Useno Pre-op Checklist: Arrival [id number] Arrival Time11:16 Procedure Typeabdominal wall tumor resection NPOyes Last Food [id number] 21:00 Last Clear Fluid [id number] 21:00 ID Band On Patientpatient ID (name), [...] Past Medical History, Active Electronic Signatures: Anna WorthingtonRN) (Signed 31-Mar-2022 13:12) Authored: Initial Info, General Health, Health Mgmt, Relationship/Environ, Tobacco Use, Additional Information Aviva Galvez) (Signed 03-Apr-2022 11:57) Authored: General Health, Pre-op Checklist, Additional Information Last Updated: 03-Apr-2022 11:57 by Aviva Galvez) [facility] Office Visit (Oncology Surge ry)on 03-24-2022 Follow-up visit Diagnoses/Problems Assessed Abdominal wall mass (789.30) (R22.2) *Orders Abdominal wall mass CORONAVIRUS 2019 RNA BY PCR, SCREEN ASYMPTOMATIC AMBULATORY; Status:Hold For - Specimen/Data Collection,Retrospective By Protocol Authorization; Requested for:[id number]; Abdominal wall mass (089.30) (R22.2) Patient Discussion/Summary Mrs. Fonseca is a [...] with thyroid problems Social history: Lives in [place] with her boyfriend. She has 2 children [...] Kim Isaac; (more content not included)... Normal [facility] Tobacco Screening.on 022 Fall risk assessment a) No falls within the last year [facility] Work Phone: Tobacco use status [facility]PH[facility] b) No [facility] Work Phone: Automated erythrocytes count in urine sediment (number/area)Ordered By: Jim Vega on 03-15-2022 RBC Auto (Urine sed) [#/Area] 5-9 [HPF] 0-4 [facility] Automated leukocytes count i n urine sediment (number/area)Ordered By: Jim Vega on 03-15-2022 WBC Auto (Urine sed) [#/Area] None seen [HPF] 0-4 [facility] Basophils Auto (Bld) [#/Vol] Ordered By: Jim Vega on 03-15-2022 Basophils (Bld) [#/Vol] 0.1 10*3/uL 0.0-0.2 [facility] Basophils/100 WBC Auto (Bld) Ordered By: Jim Vega on 03-15-2022 Basophils/100 WBC (Bld) 0.7 % . [facility] Bilirubin Test strip Ql (U)O rdered By: Jim Vega on 03-15-2022 Bilirubin Ql (U) Negative Negative [facility] Blood hemoglobin measurement (mass/volume)Ordered By: Jim Vega on 03-15-2022 Hemoglobin (Bld) [Mass/Vol] 9.9 g/dL 11.8-15.4 [facility] Blood leukocytes automated c ount (number/volume)Ordered By: Jim Vega on 03-15-2022 WBC (Bld) [#/Vol] 8.3 10*3/uL 4.5-11.0 [facility] Body fluid albumin measureme nt (mass/volume)Ordered By: Jim Vega on 03-15-2022 Albumin (Body fld) [Mass/Vol] 3.7 g/dL 3.2-5.5 [facility] Color Auto (U)Ordered By: Narinder red Silvia on 03-15-2022 Color (U) Yellow Yellow [facility] Creatinine and Glomerular fi ltration rate.predicted panel (S/P/Bld)Ordered By: Jim Vega on 03-15-2022 Creatinine [Mass/Vol] 0.85 mg/dL 0.44-1.03 [facility] Eosinophils Auto (Bld) [#/Vo l]Ordered By: Jim Vega on 03-15-2022 Eosinophils (Bld) [#/Vol] 0.2 10*3/uL 0.0-0.45 [facility] Eosinophils/100 WBC Auto (Bl d)Ordered By: Jim Vega on 03-15-2022 Eosinophils/100 WBC (Bld) 2.0 % . [facility] Erythrocyte distribution wid th Auto (RBC) [Ratio]Ordered By: Jim Vega on 03-15-2022 Erythrocyte distribution width (RBC) [Ratio] 14.4 % 11.9-15.3 [facility] Estimated glomerular filtrat ion rate (GFR) non- AmericanOrdered By: Jim Vega on 03-15-2022 GFR/1.73 sq M.predicted among non-blacks MDRD (S/P/Bld) [Vol rate/Area] > 60 mL/Min [facility] Globulin Calc (S) [Mass/Vol] Ordered By: Jim Vega on 03-15-2022 Globulin (S) [Mass/Vol] 3.6 g/dL [facility] HCG ( test) IA.rapi d Ql (U)Ordered By: Jim Vega on 03-15-2022 HCG ( test) Ql (U) Negative [facility] Hematocrit Auto (Bld) [Volum e fraction]Ordered By: Jim Vega on 03-15-2022 Hematocrit (Bld) [Volume fraction] 31.8 % 34.0-46.4 [facility] Ketones Auto test strip (U) [Mass/Vol]Ordered By: Jim Vega on 03-15-2022 Ketones (U) [Mass/Vol] Negative Negative [facility] - Chemistry and C hemistry - challengeOrdered By: Jim Vega on 03-15-2022 Lipase [Catalytic activity/Vol] 53.0 U/L 22-51 [facility] Natriuretic peptide B (Bld) [Mass/Vol] 13.0 pg/mL 5-100 [facility] - Hematology and Cell countsOrdered By: Jim Vega on 03-15-2022 Nucleated RBC/100 WBC (Bld) [Ratio] 0.0 % 0-0.5 [facility] - UrinalysisOrder ed By: Jim Vega on 03-15-2022 Hyaline casts LM Ql (Urine sed) None seen [LPF] 0-8 [facility] Lymphocytes Auto (Bld) [#/Vo l]Ordered By: Jim Vega on 03-15-2022 Lymphocytes (Bld) [#/Vol] 1.9 10*3/uL 1.00-4.8 [facility] Lymphocytes/100 WBC Auto (Bl d)Ordered By: Jim Vega on 03-15-2022 Lymphocytes/100 WBC (Bld) 22.9 % . [facility] MCH Auto (RBC) [Entitic mass ]Ordered By: Jim Vega on 03-15-2022 MCH (RBC) [Entitic mass] 22.2 pg 24.7-34.3 [facility] MCHC Auto (RBC) [Mass/Vol]Or dered By: Jim Vega on 03-15-2022 MCHC (RBC) [Mass/Vol] 31.2 g/dL 32.0-35.0 [facility] MCV Auto (RBC) [Entitic vol] Ordered By: Jim Vega on 03-15-2022 MCV (RBC) [Entitic vol] 71.1 fL 80-100 [facility] Monocytes Auto (Bld) [#/Vol] Ordered By: Jim Vega on 03-15-2022 Monocytes (Bld) [#/Vol] 0.6 10*3/uL 0.0-0.8 [facility] Monocytes/100 WBC Auto (Bld) Ordered By: Jim Vega on 03-15-2022 Monocytes/100 WBC (Bld) 6.9 % . [facility] Neutrophils Auto (Bld) [#/Vo l]Ordered By: Jim Vega on 03-15-2022 Neutrophils (Bld) [#/Vol] 5.6 10*3/uL 1.8-7.7 [facility] Neutrophils/100 WBC Auto (Bl d)Ordered By: Jim Vega on 03-15-2022 Neutrophils/100 WBC (Bld) 67.5 % . [facility] Nitrite Test strip Ql (U)Ord ered By: Jim Vega on 03-15-2022 Nitrite Ql (U) Negative Negative [facility] No Panel InformationOrdered By: Jim Vega on 03-15-2022 Estimated GFR () > 60 mL/Min [facility] Comment on above: GFR estimated refere nce range: According to KDOQI guidelines, <60 ml/min/1.73m2 is sufficient to diagnose a patient with chronic kidney disease. Pharmacy Creatinine Clearance (Chem 93.64 [facility] Platelet mean volume Auto (B ld) [Entitic vol]Ordered By: Jim Vega on 03-15-2022 Platelet mean volume (Bld) [Entitic vol] 9.4 fL 6.3-10.7 [facility] Platelets Auto (Bld) [#/Vol] Ordered By: Jim Vega on 03-15-2022 Platelets (Bld) [#/Vol] 254 10*3/uL 150-450 [facility] Protein Auto test strip (U) [Mass/Vol]Ordered By: Jim Vega on 03-15-2022 Protein (U) [Mass/Vol] Negative Negative [facility] Protein [Mass/volume] in Ser um or PlasmaOrdered By: Jim Vega on 03-15-2022 Protein [Mass/Vol] 7.3 g/dL 6.1-7.9 [facility] RBC Auto (Bld) [#/Vol]Ordere d By: Jmi Vega on 03-15-2022 RBC (Bld) [#/Vol] 4.47 10*6/uL 3.60-5.00 [facility] Serum or plasma alanine keene otransferase measurement without P-5'-P (enzymatic activiOrdered By: Jim Vega on 03-15-2022 ALT No additional P-5'-P [Catalytic activity/Vol] 14 U/L 10-60 [facility] Serum or plasma albumin/glob ulin mass ratioOrdered By: Jim Vega on 03-15-2022 Albumin/Globulin [Mass ratio] 1.0 {ratio} [facility] Serum or plasma alkaline jared sphatase measurement (enzymatic activity/volume)Ordered By: Jim Vega on 03-15-2022 ALP [Catalytic activity/Vol] 45 U/L 32-92 [facility] Serum or plasma aspartate am inotransferase measurement (enzymatic activity/volume)Ordered By: Jim Vega on 03-15-2022 AST [Catalytic activity/Vol] 17 U/L 10-42 [facility] Serum or plasma calcium marychuy urement (mass/volume)Ordered By: Jim Vega on 03-15-2022 Calcium [Mass/Vol] 9.4 mg/dL 8.2-10.2 [facility] Serum or plasma chloride nemo surement (moles/volume)Ordered By: Jim Vega on 03-15-2022 Chloride [Moles/Vol] 102 mmol/L 95-114 [facility] Serum or plasma glucose marychuy urement (mass/volume)Ordered By: Jim Vega on 03-15-2022 Glucose [Mass/Vol] 85 mg/dL 70-100 [facility] Comment on above: ADA recommended refe rence range Random Glucose Reference Range is dependent on time and content of last meal. Glucose of more than 200 mg/dL in a nonstressed, ambulatory subject supports the diagnosis of Diabetes Mellitus. Serum or plasma potassium me asurement (moles/volume)Ordered By: Jim Vega on 03-15-2022 Potassium [Moles/Vol] 4.2 mmol/L 3.5-5.1 [facility] Serum or plasma sodium measu rement (moles/volume)Ordered By: Jim Vega on 03-15-2022 Sodium [Moles/Vol] 136 mmol/L 136-146 [facility] Serum or plasma total biliru bin measurement (mass/volume)Ordered By: Jim Vega on 03-15-2022 Bilirubin [Mass/Vol] 0.1 mg/dL 0.3-1.2 [facility] Serum or plasma total carbon dioxide measurement (moles/volume)Ordered By: iJm Vega on 03-15-2022 CO2 [Moles/Vol] 26.3 mmol/L 22.0-30.0 [facility] Serum or plasma urea nitroge n measurement (mass/volume)Ordered By: Jim Vega on 03-15-2022 Urea nitrogen [Mass/Vol] 9 mg/dL 9-23 [facility] Specific gravity Auto test s trip (U) [Rel density]Ordered By: Jim Vega on 03-15-2022 Specific gravity (U) [Rel density] 1.010 1.001-1.03 0 [facility] Squamous epithelial cells de tection in urine sediment by light microscopyOrdered By: Jim Vega on 03-15-2022 Epithelial cells.squamous LM Ql (Urine sed) 0-1 [HPF] 0-2 [facility] Troponin I.cardiac [Mass/vol ume] in Serum or Plasma by High sensitivity methodOrdered By: Jim Vega on 03-15-2022 Troponin I.cardiac High sensitivity method [Mass/Vol] 3 pg/mL 0-15 [facility] Urine bacteria detection by automated methodOrdered By: Jim Vega on 03-15-2022 Bacteria Auto Ql (U) None seen None Seen [facility] Urine clarity by refractomet ry automatedOrdered By: Jim Vega on 03-15-2022 Clarity Refractometry automated (U) Clear Clear [facility] Urine glucose measurement by automated test strip (mass/volume)Ordered By: Jim Vega on 03-15-2022 Glucose Auto test strip (U) [Mass/Vol] Normal mg/dL Normal [facility] Urine hemoglobin detection b y automated test stripOrdered By: Jim Vega on 03-15-2022 Hemoglobin Auto test strip Ql (U) Trace Negative [facility] Urine leukocyte esterase det ection by automated test stripOrdered By: Jim Vega on 03-15-2022 Leukocyte esterase Auto test strip Ql (U) Negative Negative [facility] Urobilinogen Auto test strip (U) [Mass/Vol]Ordered By: Jim Vega on 03-15-2022 Urobilinogen (U) [Mass/Vol] Normal mg/dL Normal [facility] pH Auto test strip (U)Ordere d By: Jim Vega on 03-15-2022 pH (U) 7.5 [pH] 5.0-9.0 [facility] US FINE NEEDLE ASP EXPon US FINE NEEDLE ASP EXP Begin Addendu m #1 COLLECTED DATE/TIME: 02/20/2022 13:18 EST Final Diagnosis Report for [facility] [place], [place] (A/B) MASS NEAR SCAR; FINE NEEDLE [...] 2. Pathology results are pending. Normal [facility] US SINGLE QUAD LT LOWERon US SINGLE [...] KALPESH FOWLER Date: 2022-02-02 09:33 Normal [facility] CT ABD/PELVIS WO CONon 01-11 CT ABD/PELVIS [...] by: JENN GREWAL Date: 2022-01-11 11:40 Normal [facility] Vital Signs Date Time Vital Sign Value Performing Clinician Facility 09-11-2024 10:52-0500 Body mass index (BMI) [Ratio] 28.77 kg/m2 Yappe Work Phone: [facility] 09-11-2024 10:52-0500 Body weight 73.66 kg Yappe Work Phone: [facility] 09-11-2024 10:52-0500 Diastolic blood pressure 62 mm[Hg] [employer]appe Work Phone: [facility] 09-11-2024 10:52-0500 Systolic blood pressure 128 mm[Hg] Cardiosonico [employer] Work Phone: [facility] 08-06-2024 23:53-0500 Diastolic blood pressure 68 mm[Hg] Yudelka Lopez SERVICE ORDER DISPATCHER Work Phone: [facility] 08-06-2024 23:53-0500 Heart rate 75 /min Yudelka Lopez APRN Work Phone: [facility] 08-06-2024 23:53-0500 Respiratory rate 22 /min Yudelka Lopez APRN Work Phone: [facility] 08-06-2024 23:53-0500 SaO2% (BldA) [Mass fraction] 100 % Yudelka Lopez APRN Work Phone: [facility] 08-06-2024 23:53-0500 Systolic blood pressure 128 mm[Hg] Yudelka Lopez SERVICE ORDER DISPATCHER Work Phone: [facility] 08-06-2024 21:25-0500 Body height 157.48 cm Yudelka Lopez SERVICE ORDER DISPATCHER Work Phone: [facility] 08-06-2024 21:25-0500 Body weight 74.3 kg Yudelka Lopez SERVICE ORDER DISPATCHER Work Phone: [facility] 07-14-2024 15:03-0400 Diastolic blood pressure 75 mm[Hg] SERVICE ORDER DISPATCHER Yudelka Lopez Work Phone: [facility] 07-14-2024 15:03-0400 Heart rate 71 /min SERVICE ORDER DISPATCHER Yudelka Lopez Work Phone: [facility] 07-14-2024 15:03-0400 Respiratory rate 18 /min SERVICE ORDER DISPATCHERFamilia Lopez Work Phone: [facility] 07-14-2024 15:03-0400 SaO2% (BldA) [Mass fraction] 99 % SERVICE ORDER DISPATCHER Yudelka Lopez Work Phone: [facility] 07-14-2024 15:03-0400 Systolic blood pressure 114 mm[Hg] SERVICE ORDER DISPATCHER Yudelka Lopez Work Phone: [facility] 07-14-2024 12:23-0400 Body height 157.48 cm SERVICE ORDER DISPATCHER Yudelka Lopez Work Phone: [facility] 07-14-2024 12:17-0400 Body height 157.48 cm SERVICE ORDER DISPATCHER Yudelka Lopez Work Phone: [facility] 07-14-2024 12:17-0400 Body temperature 98.4 [degF] SERVICE ORDER DISPATCHER Yudelka Lopez Work Phone: [facility] 07-14-2024 12:17-0400 Body weight 74 kg SERVICE ORDER DISPATCHERFamilia Lopez Work Phone: [facility] 07-14-2024 11:43-0400 Body height 157.48 cm [facility] 07-14-2024 11:43-0400 Body mass index (BMI) [Ratio] 29 kg/m2 [facility] 07-14-2024 11:43-0400 Body temperature 98.2 [degF] [facility] 07-14-2024 11:43-0400 Body weight 72.12 kg [facility] 07-14-2024 11:43-0400 Diastolic blood pressure 76 mm[Hg] [facility] 07-14-2024 11:43-0400 Heart rate 97 /min [facility] 07-14-2024 11:43-0400 SaO2% (BldA) [Mass fraction] 99 % [facility] 07-14-2024 11:43-0400 Systolic blood pressure 114 mm[Hg] [facility] 09-28-2023 14:34-0500 Body weight 73.93 kg BETTY Lopez Work Phone: [facility] 09-28-2023 14:34-0500 Diastolic blood pressure 79 mm[Hg] BETTY Lopez Work Phone: [facility] 09-28-2023 14:34-0500 Heart rate 66 /min BETTY Lopez Work Phone: [facility] 09-28-2023 14:34-0500 Respiratory rate 20 /min BETTY Lopez Work Phone: [facility] 09-28-2023 14:34-0500 SaO2% (BldA) [Mass fraction] 100 % BETTY Lopez Work Phone: [facility] 09-28-2023 14:34-0500 Systolic blood pressure 119 mm[Hg] BETTY Lopez Work Phone: [facility] 06-27-2023 10:33-0400 Body height 157.48 cm BETTY Lopez Work Phone: [facility] 06-27-2023 10:33-0400 Body temperature 97.7 [degF] BETTY Lopez Work Phone: [facility] 06-27-2023 10:33-0400 Body weight 72.52 kg BETTY Lopez Work Phone: [facility] 06-27-2023 10:33-0400 Diastolic blood pressure 80 mm[Hg] BETTY Lopez Work Phone: [facility] 06-27-2023 10:33-0400 Heart rate 80 /min BETTY Lopez Work Phone: [facility] 06-27-2023 10:33-0400 Respiratory rate 20 /min BETTY Lopez Work Phone: [facility] 06-27-2023 10:33-0400 SaO2% (BldA) [Mass fraction] 100 % BETTY Lopez Work Phone: [facility] 06-27-2023 10:33-0400 Systolic blood pressure 120 mm[Hg] BETTY Lopez Work Phone: [facility] 06-04-2023 18:15-0400 Body height 157.48 cm Marvin Fontenot Other [facility] Other 06-04-2023 18:15-0400 Body mass index (BMI) [Ratio] 30.36 kg/m2 Marvin Fontenot Other [facility] Other 06-04-2023 18:15-0400 Body temperature 98.5 [degF] Marvin Fontenot Other [facility] Other 06-04-2023 18:15-0400 Body weight 75.3 kg Marvin Fontenot Other [facility] Other 06-04-2023 18:15-0400 Respiratory rate 20 /min Marvin Fontenot Other [facility] Other 06-04-2023 18:15-0400 SaO2% (BldA) [Mass fraction] 98 % Marvni Fontenot Other [facility] Other 03-21-2023 15:04-0400 Body weight 73.16 kg SERVICE ORDER DISPATCHER Yudelka Lopez Work Phone: [facility] 03-21-2023 15:04-0400 Diastolic blood pressure 74 mm[Hg] SERVICE ORDER DISPATCHER Yudelka Lopez Work Phone: [facility] 03-21-2023 15:04-0400 Heart rate 109 /min SERVICE ORDER DISPATCHER Yudelka Lopez Work Phone: [facility] 03-21-2023 15:04-0400 Respiratory rate 20 /min SERVICE ORDER DISPATCHER Yudelka John Work Phone: [facility] 03-21-2023 15:04-0400 SaO2% (BldA) [Mass fraction] 99 % SERVICE ORDER DISPATCHER Yudelka Lopez Work Phone: [facility] 03-21-2023 15:04-0400 Systolic blood pressure 134 mm[Hg] SERVICE ORDER DISPATCHER Yudelka Lopez Work Phone: [facility] 02-07-2023 10:42-0400 Diastolic blood pressure 70 mm[Hg] SERVICE ORDER DISPATCHER Yudelka John Work Phone: [facility] 02-07-2023 10:42-0400 Heart rate 82 /min SERVICE ORDER DISPATCHER Yudelka Lopez Work Phone: [facility] 02-07-2023 10:42-0400 Respiratory rate 18 /min SERVICE ORDER DISPATCHER Yudelka Lopez Work Phone: [facility] 02-07-2023 10:42-0400 SaO2% (BldA) [Mass fraction] 97 % SERVICE ORDER DISPATCHER Yudelka Lopez Work Phone: [facility] 02-07-2023 10:42-0400 Systolic blood pressure 118 mm[Hg] SERVICE ORDER DISPATCHER Yudelka Lopez Work Phone: [facility] 02-07-2023 08:15-0400 Body temperature 98 [degF] SERVICE ORDER DISPATCHER Yudelka Lopez Work Phone: [facility] 02-06-2023 10:57-0400 Diastolic blood pressure 54 mm[Hg] SERVICE ORDER DISPATCHER Yudelka Lopez Work Phone: [facility] 02-06-2023 10:57-0400 Heart rate 66 /min SERVICE ORDER DISPATCHER Yudelka Lopez Work Phone: [facility] 02-06-2023 10:57-0400 Respiratory rate 18 /min SERVICE ORDER DISPATCHER Yudelka Lopez Work Phone: [facility] 02-06-2023 10:57-0400 SaO2% (BldA) [Mass fraction] 99 % SERVICE ORDER DISPATCHER Yudelka Lopez Work Phone: [facility] 02-06-2023 10:57-0400 Systolic blood pressure 113 mm[Hg] SERVICE ORDER DISPATCHER Yudelka Lopez Work Phone: [facility] 02-06-2023 09:14-0400 Body height 160.02 cm SERVICE ORDER DISPATCHER Yudelka Lopez Work Phone: [facility] 02-06-2023 09:14-0400 Body temperature 98.1 [degF] SERVICE ORDER DISPATCHER Yudelka Lopez Work Phone: [facility] 02-06-2023 09:14-0400 Body weight 73 kg SERVICE ORDER DISPATCHER Yudelka Lopez Work Phone: [facility] 01-25-2023 12:38-0400 Diastolic blood pressure 74 mm[Hg] SERVICE ORDER DISPATCHER Yudelka Lopez Work Phone: [facility] 01-25-2023 12:38-0400 Heart rate 72 /min SERVICE ORDER DISPATCHER Yudelka Lopez Work Phone: [facility] 01-25-2023 12:38-0400 Respiratory rate 18 /min SERVICE ORDER DISPATCHER Yudelka Lopez Work Phone: [facility] 01-25-2023 12:38-0400 SaO2% (BldA) [Mass fraction] 100 % SERVICE ORDER DISPATCHER Yudelka Lopez Work Phone: [facility] 01-25-2023 12:38-0400 Systolic blood pressure 101 mm[Hg] SERVICE ORDER DISPATCHER Yudelka Lopez Work Phone: [facility] 01-25-2023 08:19-0400 Body temperature 98.3 [degF] SERVICE ORDER DISPATCHER Yudelka Lopez Work Phone: [facility] 01-02-2023 10:31-0400 Body weight 75.2 kg SERVICE ORDER DISPATCHER Yudelka Lopez Work Phone: [facility] 12-21-2022 10:00-0400 Body height 157.48 cm Imad Asaad Other [facility] Other 12-21-2022 10:00-0400 Body mass index (BMI) [Ratio] 30.36 kg/m2 Imad Asaad Other [facility] Other 12-21-2022 10:00-0400 Body weight 75.3 kg Imad Asaad Other [facility] Other 12-21-2022 10:00-0400 Diastolic blood pressure 68 mm[Hg] Imad Asaad Other [facility] Other 12-21-2022 10:00-0400 Systolic blood pressure 115 mm[Hg] Imad Asaad Other [facility] Other 11-28-2022 20:38-0400 Body height 157.48 cm SERVICE ORDER DISPATCHERFamilia Lopez Work Phone: [facility] 11-28-2022 20:38-0400 Body temperature 97.9 [degF] SERVICE ORDER DISPATCHERFamilia Lopez Work Phone: [facility] 11-28-2022 20:38-0400 Body weight 75.2 kg SERVICE ORDER DISPATCHERFamilia Lopez Work Phone: [facility] 11-28-2022 20:38-0400 Diastolic blood pressure 72 mm[Hg] BETTY Lopez Work Phone: [facility] 11-28-2022 20:38-0400 Heart rate 78 /min SERVICE ORDER DISPATCHER Yudelka Lopez Work Phone: [facility] 11-28-2022 20:38-0400 Respiratory rate 18 /min SERVICE ORDER DISPATCHER Yudelka Lopez Work Phone: [facility] 11-28-2022 20:38-0400 SaO2% (BldA) [Mass fraction] 100 % SERVICE ORDER DISPATCHER Yudelka Lopez Work Phone: [facility] 11-28-2022 20:38-0400 Systolic blood pressure 140 mm[Hg] SERVICE ORDER DISPATCHER Yudelka Lopez Work Phone: [facility] 11-01-2022 12:30-0500 Diastolic blood pressure 66 mm[Hg] SERVICE ORDER DISPATCHER Yudelka Lopez Work Phone: [facility] 11-01-2022 12:30-0500 Heart rate 60 /min SERVICE ORDER DISPATCHER Yudelka Lopez Work Phone: [facility] 11-01-2022 12:30-0500 Respiratory rate 18 /min SERVICE ORDER DISPATCHER Yudelka Lopez Work Phone: [facility] 11-01-2022 12:30-0500 SaO2% (BldA) [Mass fraction] 100 % SERVICE ORDER DISPATCHER Yudelka Lopez Work Phone: [facility] 11-01-2022 12:30-0500 Systolic blood pressure 108 mm[Hg] SERVICE ORDER DISPATCHER Yudelka Lopez Work Phone: [facility] 11-01-2022 10:17-0500 Body temperature 98.9 [degF] SERVICE ORDER DISPATCHER Yudelka Lopez Work Phone: [facility] 10-10-2022 15:05-0500 Diastolic blood pressure 62 mm[Hg] SERVICE ORDER DISPATCHER Yudelka Lopez Work Phone: [facility] 10-10-2022 15:05-0500 Heart rate 68 /min SERVICE ORDER DISPATCHER Yudelka Lopez Work Phone: [facility] 10-10-2022 15:05-0500 Respiratory rate 16 /min SERVICE ORDER DISPATCHER Yudelka Lopez Work Phone: [facility] 10-10-2022 15:05-0500 Systolic blood pressure 111 mm[Hg] SERVICE ORDER DISPATCHER Yudelka Lopez Work Phone: [facility] 10-10-2022 13:05-0500 Body temperature 98.3 [degF] SERVICE ORDER DISPATCHER Yudelka Lopez Work Phone: [facility] 10-10-2022 13:05-0500 SaO2% (BldA) [Mass fraction] 100 % SERVICE ORDER DISPATCHER Yudelka Lopez Work Phone: [facility] 10-03-2022 10:46-0500 Body weight 72.41 kg SERVICE ORDER DISPATCHER Yudelka Lopez Work Phone: [facility] 10-03-2022 10:33-0500 Body height 157.48 cm SERVICE ORDER DISPATCHER Yudelka Lopez Work Phone: [facility] 09-21-2022 14:02-0500 Diastolic blood pressure 54 mm[Hg] SERVICE ORDER DISPATCHER Yudelka Lopez Work Phone: [facility] 09-21-2022 14:02-0500 Heart rate 72 /min SERVICE ORDER DISPATCHER Yudelka Lopez Work Phone: [facility] 09-21-2022 14:02-0500 Respiratory rate 18 /min SERVICE ORDER DISPATCHER Yudelka Lopez Work Phone: [facility] 09-21-2022 14:02-0500 SaO2% (BldA) [Mass fraction] 100 % SERVICE ORDER DISPATCHER Yudelka Lopez Work Phone: [facility] 09-21-2022 14:02-0500 Systolic blood pressure 105 mm[Hg] SERVICE ORDER DISPATCHER Yudelka Lopez Work Phone: [facility] 09-21-2022 12:05-0500 Body height 157.48 cm SERVICE ORDER DISPATCHER Yudelka Lopez Work Phone: [facility] 09-21-2022 12:05-0500 Body temperature 98.2 [degF] SERVICE ORDER DISPATCHER Yudelka Lopez Work Phone: [facility] 09-21-2022 12:05-0500 Body weight 71.6 kg SERVICE ORDER DISPATCHER Yudelka Lopez Work Phone: [facility] 07-04-2022 20:47-0400 Body temperature 98.2 [degF] SERVICE ORDER DISPATCHER Yudelka Lopez Work Phone: [facility] 07-04-2022 20:47-0400 Diastolic blood pressure 72 mm[Hg] SERVICE ORDER DISPATCHER Yudelka Lopez Work Phone: [facility] 07-04-2022 20:47-0400 Heart rate 83 /min SERVICE ORDER DISPATCHER Yudelka Lopez Work Phone: [facility] 07-04-2022 20:47-0400 Respiratory rate 18 /min SERVICE ORDER DISPATCHER Yudelka Lopez Work Phone: [facility] 07-04-2022 20:47-0400 SaO2% (BldA) [Mass fraction] 99 % SERVICE ORDER DISPATCHER Yudelka Lopez Work Phone: [facility] 07-04-2022 20:47-0400 Systolic blood pressure 119 mm[Hg] SERVICE ORDER DISPATCHER Yudelka Lopez Work Phone: [facility] 07-04-2022 18:45-0400 Body height 160.02 cm SERVICE ORDER DISPATCHER Yudelka Lopez Work Phone: [facility] 07-04-2022 18:45-0400 Body weight 73.6 kg BETTY Lopez Work Phone: [facility] 06-01-2022 02:30-0400 Diastolic blood pressure 85 mm[Hg] SERVICE ORDER DISPATCHER Yudelka Lopez Work Phone: [facility] 06-01-2022 02:30-0400 Heart rate 71 /min SERVICE ORDER DISPATCHER Yudelka Lopez Work Phone: [facility] 06-01-2022 02:30-0400 Respiratory rate 16 /min SERVICE ORDER DISPATCHER Yudelka Lopez Work Phone: [facility] 06-01-2022 02:30-0400 SaO2% (BldA) [Mass fraction] 100 % SERVICE ORDER DISPATCHER Yudelka Lopez Work Phone: [facility] 06-01-2022 02:30-0400 Systolic blood pressure 111 mm[Hg] SERVICE ORDER DISPATCHER Yudelka John Work Phone: [facility] 06-01-2022 01:29-0400 Body height 160.02 cm SERVICE ORDER DISPATCHER Yudelka John Work Phone: [facility] 06-01-2022 01:29-0400 Body temperature 98 [degF] SERVICE ORDER DISPATCHER Yudelka John Work Phone: [facility] 06-01-2022 01:29-0400 Body weight 73.48 kg SERVICE ORDER DISPATCHER Yudelka John Work Phone: [facility] 04-07-2022 12:02-0400 Body height 157.81 cm Yudelka Scott Lopez Work Phone: [facility] Work Phone: 04-07-2022 12:02-0400 Body mass index (BMI) [Ratio] 30.42 kg/m2 Yudelka Lopez Work Phone: [facility] Work Phone: 04-07-2022 12:02-0400 Body surface area Derived from formula 1.77 m2 Yudelka Lopez Work Phone: [facility] Work Phone: 04-07-2022 12:02-0400 Body temperature 97.7 [degF] Yudelka Lopez Work Phone: [facility] Work Phone: 04-07-2022 12:02-0400 Body weight 75.75 kg Yudelka Lopez Work Phone: [facility] Work Phone: 04-07-2022 12:02-0400 Diastolic blood pressure 66 mm[Hg] Yudelka Lopez Work Phone: [facility] Work Phone: 04-07-2022 12:02-0400 Heart rate 73 /min Yudelka Lopez Work Phone: [facility] Work Phone: 04-07-2022 12:02-0400 Respiratory rate 16 /min Yudelka Lopez Work Phone: [facility] Work Phone: 04-07-2022 12:02-0400 SaO2% (BldA) [Mass fraction] 100 % Yudelka Lopez Work Phone: [facility] Work Phone: 04-07-2022 12:02-0400 Systolic blood pressure 137 mm[Hg] Yudelka Lopez Work Phone: [facility] Work Phone: 04-07-2022 12:02-0400 0 1 Yudelka Lopez Work Phone: [facility] Work Phone: Comment on above: [employer] 04-05-2022 00:01-0400 Diastolic blood pressure 63 mm[Hg] SERVICE ORDER DISPATCHERFamilia Jha John Work Phone: [facility] 04-05-2022 00:01-0400 Heart rate 59 /min SERVICE ORDER DISPATCHERFamilia Jha Lopez Work Phone: [facility] 04-05-2022 00:01-0400 Respiratory rate 20 /min SERVICE ORDER DISPATCHERFamilia Jha John Work Phone: [facility] 04-05-2022 00:01-0400 SaO2% (BldA) [Mass fraction] 100 % SERVICE ORDER DISPATCHERFamilia Jha Lopez Work Phone: [facility] 04-05-2022 00:01-0400 Systolic blood pressure 117 mm[Hg] BETTY Jha Lopez Work Phone: [facility] 04-04-2022 17:01-0400 Body height 157.48 cm SERVICE ORDER DISPATCHERFamilia Jha Lopez Work Phone: [facility] 04-04-2022 17:01-0400 Body mass index (BMI) [Ratio] 30.4 kg/m2 BETTY Lopez Work Phone: [facility] 04-04-2022 17:01-0400 Body temperature 98.7 [degF] BETTY Lopez Work Phone: [facility] 04-04-2022 17:01-0400 Body weight 75.6 kg BETTY Lopez Work Phone: [facility] 03-24-2022 11:38-0400 Body height 157.81 cm Unknown Unknown NH-Wgznodhrm-Wxl dman Work Phone: 03-24-2022 11:38-0400 Body mass index (BMI) [Ratio] 30.08 kg/m2 Unknown Unknown WU-Gnnqtnuvr-Jyccuyp Work Phone: 03-24-2022 11:38-0400 Body surface area Derived from formula 1.76 m2 Unknown Unknown KP-Bjjduyytr-Mudqcqq Work Phone: 03-24-2022 11:38-0400 Body temperature 98.24 [degF] Unknown Unknown US-Sryssybgh-Iz idman Work Phone: 03-24-2022 11:38-0400 Body weight 74.9 kg Unknown Unknown KH-Uvreanqch-Cob dman Work Phone: 03-24-2022 11:38-0400 Diastolic blood pressure 78 mm[Hg] Unknown Unknown LU-Lzsojobha-Hpoefil Work Phone: 03-24-2022 11:38-0400 Heart rate 82 /min Unknown Unknown AA-Wilbwbdyl-Hih dman Work Phone: 03-24-2022 11:38-0400 Respiratory rate 16 /min Unknown Unknown FV-Ptgbgavwm-Zq idman Work Phone: 03-24-2022 11:38-0400 SaO2% (BldA) [Mass fraction] 100 % Unknown Unknown PQ-Ptjilxysv-Bdzpysy Work Phone: 03-24-2022 11:38-0400 Systolic blood pressure 130 mm[Hg] Unknown Unknown PG-Owlzujywq-Rxfvowa Work Phone: 03-24-2022 11:38-0400 6 1 Unknown Unknown EP-Wnlsjzpqq-Izg dman Work Phone: Comment on above: [employer] 03-15-2022 21:05-0400 Diastolic blood pressure 67 mm[Hg] SERVICE ORDER DISPATCHER Yudelka Lopez Work Phone: [facility] 03-15-2022 21:05-0400 Heart rate 72 /min SERVICE ORDER DISPATCHERFamilia Lopez Work Phone: [facility] 03-15-2022 21:05-0400 Respiratory rate 18 /min SERVICE ORDER DISPATCHERFamilia Lopez Work Phone: [facility] 03-15-2022 21:05-0400 SaO2% (BldA) [Mass fraction] 100 % SERVICE ORDER DISPATCHERFamilia Lopez Work Phone: [facility] 03-15-2022 21:05-0400 Systolic blood pressure 127 mm[Hg] SERVICE ORDER DISPATCHERFamilia Lopez Work Phone: [facility] 03-15-2022 19:22-0400 Body height 157.48 cm BETTY Lopez Work Phone: [facility] 03-15-2022 19:22-0400 Body mass index (BMI) [Ratio] 30.9 kg/m2 SERVICE ORDER DISPATCHER Yudelka Lopez Work Phone: [facility] 03-15-2022 19:22-0400 Body temperature 98.6 [degF] BETTY Lopez Work Phone: [facility] 03-15-2022 19:22-0400 Body weight 76.7 kg BETTY Lopez Work Phone: [facility] 03-04-2022 01:04-0400 Body height 157.48 cm SERVICE ORDER DISPATCHER Yudelka Lopez Work Phone: [facility] 03-04-2022 01:04-0400 Body mass index (BMI) [Ratio] 30.4 kg/m2 BETTY Lopez Work Phone: [facility] 03-04-2022 01:04-0400 Body weight 75.55 kg BETTY Lopez Work Phone: [facility] 03-04-2022 01:01-0400 Body temperature 98.1 [degF] BETTY Lopez Work Phone: [facility] 03-04-2022 01:01-0400 Diastolic blood pressure 80 mm[Hg] BETTY Lopez Work Phone: [facility] 03-04-2022 01:01-0400 Heart rate 81 /min BETTY Lopez Work Phone: [facility] 03-04-2022 01:01-0400 Respiratory rate 18 /min BETTY Lopez Work Phone: [facility] 03-04-2022 01:01-0400 SaO2% (BldA) [Mass fraction] 97 % BETTY Lopez Work Phone: [facility] 03-04-2022 01:01-0400 Systolic blood pressure 129 mm[Hg] BETTY Lopez Work Phone: [facility] Encounters Encounter Date Encounter Type Care Provider Facility Start: 09-11-2024 End: 09-11-2024 Bamboo flowsheet Malcolm Helder DO Work Phone: [facility] Start: 09-11-2024 End: 09-11-2024 Bamboo flowsheet Malcolm Helder DO Work Phone: [facility] Start: 09-11-2024 End: 09-11-2024 Clinisync Result Encounter Malcolm Helder DO Work Phone: [facility] Unsolicited Start: 09-11-2024 End: 09-11-2024 ambulatory Malcolm Helder Facility:[facility] Start: 09-11-2024 End: 09-11-2024 flow sheet Malcolm Helder DO Work Phone: [facility] Comment on above: 10 weeks gestation o f ; First trimester ; Other headache syndrome; Nausea and vomiting during ; Thyroid disease affecting ([facility] Start: 09-11-2024 End: 09-11-2024 ambulatory MALCOLM HELDER Not Available Start: 08-26-2024 End: 08-26-2024 Office outpatient visit 5 minutes [facility] Helder Nurse [facility] Comment on above: GA: 8w2d Start: 08-26-2024 End: 08-26-2024 ambulatory MALCOLM HELDER Not Available Start: 08-06-2024 End: 08-08-2024 Evaluation and management of inpatient Yudelka Lopez APRN Work Phone: [facility]-[address] [place] [address] Work Phone: Start: 08-06-2024 ambulatory Julián Naqvi Facility:[facility] Start: 08-04-2024 End: 08-04-2024 Clinisync [...] department patient visit BETTY Lopez Work Phone: [facility]-Emergency Room Work Phone: Start: 07-14-2024 End: 07-14-2024 ambulatory [facility] Work Phone: Start: 07-14-2024 End: 07-14-2024 Patient encounter procedure [facility] Work Phone: Start: 02-21-2024 End: 02-21-2024 Emergency department patient visit [facility] Start: 02-21-2024 Encounter for gynecological examination (general) (routine) without abnormal findings [facility] Start: 02-19-2024 End: 02-19-2024 ambulatory MALCOLM HELDER Not Available Start: 01-10-2024 End: 01-10-2024 ambulatory MALCOLM HELDER Not Available Start: 12-10-2023 End: 12-11-2023 [facility]ulatory [facility] Start: 12-10-2023 End: 12-10-2023 Patient encounter procedure Malagon [facility] Start: 11-27-2023 End: 11-27-2023 ambulatory MALCOLM HELDER Not Available Start: 11-24-2023 End: 11-24-2023 Emergency department patient visit Yudleka Lopez Facility:[facility] Start: 11-13-2023 End: 11-13-2023 Emergency department patient visit Yudelka Lopez Facility:[facility] Start: 09-28-2023 End: 09-28-2023 ambulatory SERVICE ORDER DISPATCHER Yudelka Lopez Work Phone: [facility] Work Phone: Start: 09-28-2023 End: 09-28-2023 Registered Recurring BETTY Lopez Work Phone: [facility]Cancer Center Work Phone: Start: 09-27-2023 End: 09-27-2023 ambulatory BETTY Lopez Work Phone: [facility] Work Phone: Start: 09-27-2023 End: 09-27-2023 Departed Referred BETTY Lopez Work Phone: [facility] Start: 09-27-2023 Registered Recurring BETTY Lopez Work Phone: [facility] Work Phone: Start: 06-27-2023 End: 06-27-2023 ambulatory BETTY Lopez Work Phone: [facility] Work Phone: Start: 06-27-2023 End: 06-27-2023 Registered Recurring BETTY Lopez Work Phone: [facility] Work Phone: Start: 06-14-2023 Registered Recurring BETTY Lopez Work Phone: [facility] Work Phone: Start: 06-14-2023 End: 06-14-2023 ambulatory BETTY Lopez Work Phone: [facility] Work Phone: Start: 06-14-2023 End: 06-14-2023 Patient encounter procedure BETTY Lopez Work Phone: [facility] [place] Work Phone: Start: 06-04-2023 End: 06-04-2023 ambulatory Marvin Fontenot Other [employer] Other Start: 06-04-2023 Office outpatient visit 15 minutes Marvin Fontenot [facility] [address] Start: 04-24-2023 End: 04-25-2023 ambulatory Kelly Hough Facility:[facility] Start: 04-24-2023 End: 04-24-2023 Patient encounter procedure Lex Elizabeth [facility] General Surgery [place] Start: 04-03-2023 ambulatory Lex Elizabeth Facilit y:[facility] Start: 03-21-2023 End: 03-21-2023 ambulatory SERVICE ORDER DISPATCHER Yudelka Lopez Work Phone: [facility] Work Phone: Start: 03-21-2023 End: 03-21-2023 Registered Recurring BETTY Lopez Work Phone: [facility] Work Phone: Start: 03-14-2023 End: 03-14-2023 ambulatory SERVICE ORDER DISPATCHER Yudelka Lopez Work Phone: [facility] Work Phone: Start: 03-14-2023 End: 03-14-2023 Patient encounter procedure SERVICE ORDER DISPATCHERFamilia Lopez Work Phone: [facility]MRI [facility] [place] Work Phone: Start: 02-07-2023 Registered Recurring SERVICE ORDER DISPATCHERFamilia Lawrence kita John Work Phone: [facility] Work Phone: Start: 02-06-2023 End: 02-06-2023 Emergency department patient visit BETTY Lopez Work Phone: [facility]-Emergency Room Work Phone: Start: 01-29-2023 End: 01-29-2023 ambulatory SERVICE ORDER DISPATCHER Yudelka Lopez Work Phone: [facility] Work Phone: Start: 01-29-2023 End: 01-29-2023 Patient encounter procedure SERVICE ORDER DISPATCHERFamilia Lopez Work Phone: [facility]-Nuc Med [facility] [place] Work Phone: Start: 01-25-2023 Registered Recurring SERVICE ORDER DISPATCHERFamilia Lopez Work Phone: [facility] Work Phone: Start: 01-24-2023 End: 01-24-2023 ambulatory SERVICE ORDER DISPATCHER Yudelka Lopez Work Phone: [facility] Work Phone: Start: 01-24-2023 End: 01-24-2023 Discharged Recurring BETTY Yudelka Lopez Work Phone: [facility]-Physical Therapy [address] Start: 12-25-2022 End: 12-25-2022 ambulatory BETTY Paulino John Work Phone: [facility] Work Phone: Start: 12-25-2022 End: 12-25-2022 Patient encounter procedure BETTY Jha Lopez Work Phone: [facility] [place] Work Phone: Start: 12-25-2022 Registered Recurring SERVICE ORDER DISPATCHERFamilia Lopez Work Phone: [facility]-Physical Therapy [facility] Start: 12-22-2022 End: 12-22-2022 ambulatory Imad Asaad Other [employer] Other Start: 12-22-2022 Telephone encounter Imad Asaad [facility] Start: 12-21-2022 End: 12-21-2022 ambulatory Imad Asaad Other [employer] Other Start: 12-21-2022 [facility] visit new patient Imad Asaad [facility] Start: 12-07-2022 End: 12-07-[address] DOCTOR MARI Facility:[facility] Start: 11-29-2022 End: 11-30-[address] MALCOLM PENDLETON . Facility:[facility] Start: 11-28-2022 End: 11-28-2022 Emergency department patient visit BETTY Yudelka Lopez Work Phone: [facility]-Emergency Room Work Phone: Start: 11-01-2022 Registered Recurring SERVICE ORDER DISPATCHERFamilia Lopez Work Phone: [facility] Work Phone: Start: 10-12-2022 End: 10-12-2022 ambulatory SERVICE ORDER DISPATCHER Yudelka Lopez Work Phone: [facility] Work Phone: Start: 10-12-2022 End: 10-12-2022 Patient encounter procedure BETTY Lopez Work Phone: [facility] [place] Work Phone: Start: 10-10-2022 Registered Recurring BETTY Lopez Work Phone: [facility] Work Phone: Start: 10-02-2022 End: 10-02-2022 ambulatory BETTY Lopez Work Phone: [facility] Work Phone: Start: 10-02-2022 End: 10-02-2022 Patient encounter procedure BETTY Lopez Work Phone: [facility]Ultrasound [facility] [place] Work Phone: Start: 09-21-2022 End: 09-21-2022 Emergency department patient visit BETTY Lopez Work Phone: [facility]Emergency [facility] Work Phone: Start: 09-15-2022 End: 09-15-2022 ambulatory BETTY Lopez Work Phone: [facility] Work Phone: Start: 09-15-2022 End: 09-15-2022 Patient encounter procedure BETTY Lopez Work Phone: [facility] [place] Work Phone: Start: 08-05-2022 End: 08-06-[address] MALCOLM PENDLETON . Facility:[facility] Start: 07-28-2022 End: 07-29-[address] MALCOLM PENDLETON . Facility:[facility] Start: 07-04-2022 End: 07-04-2022 Emergency department patient visit BETTY Lopez Work Phone: [facility]Emergency [facility] Start: 07-03-2022 End: 07-03-[address] MALCOLM PNEDLETON . Facility:[facility] Start: 06-01-2022 End: 06-01-2022 Emergency department patient visit SERVICE ORDER DISPATCHER Yudelka Lopez Work Phone: [facility]Emergency [facility] Start: 04-21-2022 Patient encounter procedure Yudelka Lopez Work Phone[facility] Work [facility]: Start: 04-21-2022 Postop follow up vis it related to original px Yudelka Lopez Work Phone: [facility] Work Phone: Start: 04-18-2022 End: 04-19-[address] DOCTOR MARI Facility:[facility] Start: 04-17-2022 Chart Update Yudelka Scott John Work Phone: [facility] Work Phone: Start: 04-14-2022 End: 04-14-2022 Departed Referred SERVICE ORDER DISPATCHERFamilia Lopez Work Phone: [facility] Start: 04-11-2022 End: 04-11-[address] REBECCA GALVEZ Facility:[facility] Start: 04-07-2022 Postop follow up vis it related to original px Yudelka Lopez Work Phone: [facility] Work Phone: Start: 04-04-2022 End: 04-05-2022 Emergency department patient visit SERVICE ORDER DISPATCHER Yudelka Lopez Work Phone: [facility]Emergency Room Start: 04-04-2022 AUDIT Yudelka Scott Lopez Work Phone: [facility] Work Phone: Start: 03-31-2022 End: 03-31-2022 Patient encounter procedure BETTY Yudelka John Work Phone: [facility] Start: 03-24-2022 Patient encounter procedure Unknown Unknown SN-Emqbbfsue-Yxaxkzk Work Phone: Start: 03-15-2022 End: 03-15-2022 Emergency department patient visit SERVICE ORDER DISPATCHERFamilia Lopez Work Phone: [facility] Start: 03-04-2022 End: 03-04-2022 Emergency department patient visit SERVICE ORDER DISPATCHERFamilia Lopez Work Phone: [facility]Emergency [facility] Start: 02-20-2022 End: 02-20-[address] ALFIE MATTHEWS Facility:[facility] Start: 02-02-2022 End: 02-03-[address] ALFIE MATTHEWS Facility:[facility] Start: 01-11-2022 End: 01-12-[address] ALFIE MATTHEWS Facility:[facility] Procedures Date Procedure Procedure Detail Performing Clinician Start: 09-11-2024 ALL CBC WITH AUTO DIFF Malcolm Helder DO Work Phone: Start: 09-11-2024 Urnls dip stick/tablet rgnt non-auto w/o micrscp Malcolm Helder DO Work Phone: Start: 08-26-2024 End: 08-26-2024 Urnls dip stick/tablet rgnt non-auto w/o micrscp Malcolm Helder DO Work Phone: Start: 08-04-2024 [facility] PREG QUANT HCG Malcolm Helder DO Work Phone: Start: 08-02-2024 [facility] PREG QUANT HCG Malcolm Helder DO Work Phone: Start: 07-14-2024 SARS-CoV-2, Influenza & RSV (PCR) BETTY Lopez Work Phone: Start: 07-14-2024 Viral nucleic acid assay Yudelka AMARAL RN Work Phone: Start: 07-14-2024 Computed tomography of abdomen and pelvis with contrast BETTY Lopez Work Phone: Start: 03-14-2023 MRI of [...] Treatment Date Care Activity Detail Author Start: 10-14-2024 End: 10-14-2024 Patient encounter procedure 10/14/2024 11:20 AM EST Routine [facility] [address] [place] [address] [place] [id number] Priscilla Warren PA [address] [place] [address] [facility] Start: 09-11-2024 End: 09-11-2024 Patient encounter procedure [facility] Comment on above: Arrived Start: 08-26-2024 End: 08-26-2025 ABO/Rh ABO/Rh Lab Routine Missed menses , unspecified gestational age Expected: 08/26/2024 (Approximate), Expires: 08/26/2025 [facility] Comment on above: Expected: 08/26/2024 (Approximate), Expires: 08/26/2025 Start: 08-26-2024 End: 08-26-2025 Blood type and Indirect antibody screen panel - Blood Type and screen Lab Routine Missed menses , unspecified gestational age Expected: 08/26/2024 (Approximate), Expires: 08/26/2025 [facility] Work Phone: Comment on above: Expected: 08/26/2024 (Approximate), Expires: 08/26/2025 Start: 08-26-2024 End: 08-26-2025 Drugs of abuse panel - Urine by Screen method Rapid drug screen, urine Lab Routine , unspecified gestational age Encounter for supervision of normal first in first trimester Expected: 08/26/2024 (Approximate), Expires: 08/26/2025 [facility] Comment on above: Expected: 08/26/2024 (Approximate), Expires: 08/26/2025 Start: 08-26-2024 End: 08-26-2025 US Pelvis transvaginal US OB transvaginal Imaging Routine Missed menses Expected: 08/26/2024 (Approximate), Expires: 08/26/2025 [facility] Comment on above: Expected: 08/26/2024 (Approximate), Expires: 08/26/2025 Start: 08-26-2024 End: 08-26-2024 ambulatory 08/26/2024 9:30 AM EST Initial [facility] [address] [facility] [place] [id number] [facility] Start: 08-26-2024 End: 08-26-2024 Professional / ancillary services management 08/26/2024 9:00 AM EST Ancillary Procedure [facility] [address] [place] [address] [facility] Start: 08-07-2024 Hospital admission [facility] Start: 08-07-2024 [facility] Start: 08-07-2023 [facility] Start: 07-24-2023 [facility] Start: 02-07-2023 [facility] Start: 01-31-2023 [facility] Start: 01-26-2023 End: 01-26-2023 [facility] Start: 01-24-2023 End: 01-25-2023 [facility] Start: 11-28-2022 X-ray of left foot XR foot LT min 3V * [facility] Start: 11-28-2022 XR Foot - left GE 3 Views [facility] Start: 11-01-2022 [facility] Start: 10-24-2022 End: 10-25-2022 [facility] Start: 10-17-2022 [facility] Start: 10-13-2022 [facility] Start: 10-12-2022 End: 10-13-2022 [facility] Start: 10-10-2022 [facility] Start: 04-21-2022 POV, Provider: Sly Crocker, Status: Pen, Time: 10:30 AM POV, Provider: Sly Crocker, Status: Pen, Time: 10:30 AM [id number] Work Phone: Albumin [Mass/volume ] in Serum or Plasma [facility] Albumin/Globulin ratio [facility] Bacteria identified in Urine by Culture Urine culture Microbiology Routine Missed menses Ordered: 08/26/2024 [facility] Comment on above: Ordered: 08/26/2024 Calprotectin [Mass/m ass] in Stool [facility] CBC W Auto Different ial panel - Blood CBC and differential Lab Routine Missed menses , unspecified gestational age Ordered: 08/26/2024 [facility] Comment on above: Ordered: 08/26/2024 Comprehensive metabo lic 1999 panel - Serum or Plasma [facility] Comprehensive metabo lic 1999 panel - Serum or Plasma [facility] Comprehensive metabo lic 1999 panel - Serum or Plasma [facility] Comprehensive metabo lic 1999 panel - Serum or Plasma [facility] Copper measurement [facility] Electrophoresis: [id number] [facility] Electrophoresis: ewpew-2-tnezjcis [facility] Electrophoresis: beta-globulin [facility] Electrophoresis: manohar ma globulin [facility] Endomysial antibody IgA level [facility] Erythrocyte sediment ation rate by Photometric method [facility] Erythropoietin (EPO) [Units/volume] in Serum or Plasma [facility] Ferritin [Mass/volum e] in Serum or Plasma [facility] Gliadin peptide IgA Ab [Units/volume] in Serum [facility] Gliadin peptide IgG Ab [Units/volume] in Serum [facility] Globulin [Mass/volum e] in Serum [facility] Hemoglobin A1c/Hemoglobin.total in Blood Hemoglobin A1c Lab Routine Missed menses , unspecified gestational age Ordered: 08/26/2024 [facility] Comment on above: Ordered: 08/26/2024 Hepatitis B virus gallagher rface Ag [Presence] in Serum or Plasma by Immunoassay Hepatitis B surface antigen Lab Routine Missed menses , unspecified gestational age Ordered: 08/26/2024 [facility] Comment on above: Ordered: 08/26/2024 Hepatitis C virus Ab [Presence] in Serum or Plasma by Immunoassay Hepatitis C antibody Lab Routine Missed menses , unspecified gestational age Ordered: 08/26/2024 [facility] Comment on above: Ordered: 08/26/2024 HIV 1+2 Ab+HIV1 p24 Ag [Presence] in Serum or Plasma by Immunoassay [facility] HIV-1/HIV-2 antigen/antibody combination immunoassay HIV-1 and HIV-2 antibodies Lab Routine Missed menses , unspecified gestational age Ordered: 08/26/2024 [facility] Comment on above: Ordered: 08/26/2024 IgA [Mass/volume] in Serum or Plasma [facility] IgA [Mass/volume] in Serum or Plasma [facility] IgG [Mass/volume] in Serum or Plasma [facility] IgM [Mass/volume] in Serum or Plasma [facility] [place]kworth light chains.f ree [Mass/volume] in Serum [facility] [place] light chains.free/Lambda light chains.free [Mass Ratio] in Serum [facility] Lactate dehydrogenas e [Enzymatic activity/volume] in Unspecified specimen [facility] Lambda light chains. free [Mass/volume] in Serum or Plasma [facility] Patient Education [facility] Work Phone: Patient referral [facility] Work Phone: Protein [Mass/volume ] in Serum or Plasma [facility] Reagin Ab [Presence] in Serum by RPR [facility] Reagin Ab [Presence] in Serum by RPR RPR Lab Routine Missed menses , unspecified gestational age Ordered: 08/26/2024 [facility] Comment on above: Ordered: 08/26/2024 Rubella antibody, IgG Rubella an tibody, IgG Lab Routine Missed menses , unspecified gestational age Ordered: 08/26/2024 [facility] Comment on above: Ordered: 08/26/2024 Serum immunofixation [facility] Thyroglobulin Ab [Units/volume] in Serum or Plasma [facility] Thyroperoxidase Ab [Units/volume] in Serum or Plasma [facility] Thyrotropin [Units/v olume] in Serum or Plasma TSH Lab Routine Thyroid disease affecting ([facility]/HCC) Ordered: 09/11/2024 [facility] Comment on above: Ordered: 09/11/2024 Thyrotropin receptor Ab [Units/volume] in Serum [facility] Thyroxine (T4) free [Mass/volume] in Serum or Plasma T4, free Lab Routine Thyroid disease affecting (CMS/HCC) Ordered: 09/11/2024 [facility] Work Phone: Comment on above: Ordered: 09/11/2024 Tissue transglutamin ase IgA Ab [Units/volume] in Serum [facility] Tissue transglutamin ase IgG Ab [Units/volume] in Serum [facility] Immunizations Immunization Date Immunization Notes Care Provider Iker castro 09-01-2021 influenza virus vaccine, unspecified formulation Malagon [facility] 01-10-2016 tetanus toxoid, reduced diphtheria toxoid, and acellular pertussis vaccine, adsorbed Malagon Sar[facility] 09-30-2009 hepatitis A vaccine, unspecified formulation Malagon [facility] 09-30-2009 hepatitis B vaccine, pediatric or pediatric/adolescent dosage Malagon Sar[facility] 05-27-2009 hepatitis B vaccine, pediatric or pediatric/adolescent dosage Malagon [facility] 03-22-2009 hepatitis A vaccine, unspecified formulation Malagon [facility] 03-22-2009 hepatitis B vaccine, pediatric or pediatric/adolescent dosage Malgaon Sar[facility] 03-22-2009 measles, mumps and rubella virus vaccine Malagon Sar[facility] 03-22-2009 meningococcal ACWY vaccine, unspecified formulation Malagon Sar[facility] 03-22-2009 tetanus toxoid, reduced diphtheria toxoid, and acellular pertussis vaccine, adsorbed Malagon Sar[facility] NEGATED: Highlighted row has not occurred!12-07-2023 influenza virus vaccine, unspecified formulation Malagon Sarmini [facility] Payers Date Payer Category Payer Self-pay [id number] 2022 Private Health Insurance [facility] [id number] 1992 Unknown [id number] 2.16.840.1.377645.3.579.2 .593 1992 Unknown [id number] 2.16.840.1.514458.3.579.2 .593 1992 Unknown [id number] 2.16.840.1.554892.3.579.2 .593 1992 Unknown [id number] 2.16.840.1.512973.3.579.2 .593 1992 Unknown [id number] 2.16.840.1.719981.3.579.2 .593 1992 Unknown [id number] 2.16.840.1.048811.3.579.2 .593 1992 Unknown [id number] 2.16.840.1.849368.3.579.2 .593 1992 Unknown [id number] 2.16.840.1.830640.3.579.2 .593 1992 Unknown [id number] 2.16.840.1.191974.3.579.2 .593 1992 Unknown [id number] 2.16.840.1.098727.3.579.2 .593 1992 Unknown [id number] 2.16.840.1.975870.3.579.2 .727 1992 Unknown [id number] 2.16.840.1.677875.3.579.2 .727 1992 Unknown [id number] 2.16.840.1.148994.3.579.2 .1286 1992 Unknown [id number] 2.16.840.1.511250.3.579.2 .1259 1992 Unknown [id number] 2.16.840.1.060608.3.579.2 .9 1992 Unknown [id number] 2.16.840.1.080706.3.579.2 .9 1992 Unknown [id number] 2.16.840.1.666486.3.579.2 .1259 1992 Unknown [id number] 2.16.840.1.211439.3.579.2 .1259 1959 Private Health Insurance [id number] 1959 Private Health Insurance [id number] 1959 Private Health Insurance [id number] Unknown Unknown [id number] 2.16.840.1.528682.3.579.2 .531 Unknown [id number] 2.16.840.1.541144.3.579.2 .531 Unknown [id number] 2.16.840.1.689010.3.579.2 .531 Unknown [id number] 2.16.840.1.002673.3.579.2 .531 Worker's Compensation [id number] Social History Date Type Detail Facility Start: 04-04-2022 End: 02-18-2023 Tobacco smoking status NHIS Never smoked tobacco (finding) [facility] Start: 1990 Sex Assigned At Female F [facility] Start: 07-09-2023 End: 01-10-2024 Sex Assigned At [facility] Tobacco smoking status Never [facility] Start: 07-13-2024 [facility] Start: 08-07-2024 [facility] ([facility] Start: 02-18-2023 Tobacco use and exposure Smokeless tobacco non-user [facility] Start: 02-19-2024 End: 08-26-2024 Alcoholic beverage [...] file [facility] NEGATED: Highlighted row [facility] Goals Date Patient Goal Desired Activity /State Clinical Notes 04-03-2022 to 09-11-2024 Michell Patten, [employer] - 09/11/2024 10:20 AM Michael Lopez, [facility] - 08/26/2024 9:30 AM EST Note Date & Type Note Facility 09-11-2024 History of Presen t illness Narrative Reason for Appointment: Patient ID: Leandra Fonseca is a 34 y.o. female who presents for Routine Visit Patient presents today for Return OB appointment. MEDICATIONS Current Outpatient Medications Medication Instructions metoclopramide (REGLAN) 10 mg, Oral, 3 times daily before meals, Take 1 tablet by mouth 30 minutes prior to meals 3 times daily as needed for nausea. ondansetron ODT (ZOFRAN-ODT) 4 mg, Every 8 hours PRN ALLERGIES Allergies Allergen Reactions Labetalol Other, Shortness of breath and Unknown Other Reaction(s): Dizziness, loopiness, burning sensation in chest Other Reaction(s): Difficulty Breathing Cefdinir Other Reaction(s): Unknown Reaction Methimazole Other Reaction(s): throat closing Other Reaction(s): anaphylaxis Labetalol Hcl Hives PROBLEMS Active Ambulatory Problems Diagnosis Date Noted 10 weeks gestation of 09/11/2024 First trimester 09/11/2024 Resolved Ambulatory Problems Diagnosis Date Noted No Resolved Ambulatory Problems Past Medical History: Diagnosis Date Acid reflux 02/2017 Alpha thalassemia silent carrier Anemia Endometriosis Fibroid, uterine History of anemia History of hyperthyroidism Hypothyroidism (CMS/HCC) Irregular menses Menometrorrhagia Overweight (BMI 25.0-29.9) Syncope 06/2016 Varicella zoster HISTORY PAST MEDICAL HISTORY SOCIAL HISTORY Past Medical History: Diagnosis Date Acid reflux 02/2017 [facility] Alpha thalassemia silent carrier Anemia Endometriosis Fibroid, uterine History of anemia History of hyperthyroidism Hypothyroidism (CMS/HCC) Irregular menses Menometrorrhagia Overweight (BMI 25.0-29.9) Syncope 06/2016 [facility] Varicella zoster Social History Tobacco Use Smoking status: Never Smokeless tobacco: Never Vaping Use Vaping status: Never Used Substance Use Topics Alcohol use: Yes Alcohol/week: 1.0 standard drink of alcohol Types: 1 Glasses of wine per week Drug use: Never FAMILY HISTORY Family History Problem Relation Name Age of Onset Diabetes Mother Makenna Hypertension Mother Makenna Deep vein thrombosis Father Tucker Diabetes Father Tucker Heart disease Father Tucker Arthritis Father Tucker Crohn's disease Sister Thyroid disease Sister Jailyn Leukemia Paternal Grandfather Melanoma Neg Hx SURGICAL HISTORY Past Surgical History: Procedure Laterality Date SECTION, LOW TRANSVERSE 2015 31 weeks/PIH Mccormick SECTION, LOW TRANSVERSE 09/03/[address] ANGIOGRAM CHEST 06/28/2018 CT ANGIOGRAM CHEST [facility] ANGIOGRAM CHEST 06/28/2018 CT ANGIOGRAM CHEST [facility] PAP SMEAR 07/03/2022 negative REVIEW OF SYSTEMS Review of Systems: Review of Systems Constitutional: Negative. HENT: Negative. Eyes: Negative. Respiratory: Negative. Cardiovascular: Negative. Gastrointestinal: Negative. Genitourinary: Negative. Musculoskeletal: Negative. Skin: Negative. Neurological: Negative. All other systems reviewed and are negative. Hematological: Negative. Endocrine: Negative. Allergic/Immunologic: Negative. OBJECTIVE Objective: Physical Exam Constitutional: Appearance: Normal appearance. She is well-developed. Cardiovascular: Rate and Rhythm: Normal rate and regular rhythm. Pulmonary: Effort: Pulmonary effort is normal. Breath sounds: Normal breath sounds. Abdominal: General: Bowel sounds are normal. There is no distension. Palpations: Abdomen is soft. Tenderness: There is no abdominal tenderness. There is no guarding or rebound. Musculoskeletal: General: No swelling. Normal range of motion. Right lower leg: No edema. Left lower leg: No edema. Neurological: Mental Status: She is alert and oriented to person, place, and time. Skin: General: Skin is warm and dry. Psychiatric: Mood and Affect: Mood normal. Behavior: Behavior normal. Vitals and nursing note reviewed. Exam conducted with a coyote hunter present. Vitals: Estimated body mass index is 28.77 kg/m as calculated from the following: Height as of 02/19/24: 5' 3 . Weight as of this encounter: 162 lb 6.4 oz. BP: 128/62 Patient's last menstrual period was 06/23/2024. ASSESSMENT & PLAN ICD-10-CM 1. 10 weeks gestation of Z3A.10 POCT urinalysis dipstick manually resulted 2. First trimester Z34.91 POCT urinalysis dipstick manually resulted New OB: Patient presents today for 1st time obstetrics appointment with provider. Patient is currently 10w4d . Patients history has been reviewed in great detail including any potential risks. Patient stated she currently has no complaints. Expectations throughout regarding labs, ultrasounds, and appointments have been discussed with the patient in detail. It was reiterated that the patient is to drink 6-8 glasses of water a day, eat 6 small meals a day, do not consume raw or undercooked meat, and stay away from [facility]. Patient has been consulted regarding any further do's and don'ts of . Patient voiced understanding and all questions and concerns were answered. Pt still extremely sick, rx for phenergan faxed to pharmacy. Pt given work note with ability to leave line if needs to get sick. Pt given tsh free t4 orders to have obtained. Pt having headaches- rx or mag oxide faxed to pharmacy. Orders Placed This Encounter Procedures POCT urinalysis dipstick manually resulted Follow Up: Patient is to return in 4 weeks for routine OB appointment. Documented by Michell Patten LPN on behalf of: Malcolm Pendleton DO documented in this encounter [facility] 08-26-2024 History of Presen t illness Narrative [...] or undercooked meat, and stay away from [facility]. Patient has also been advised to [...] Suze Lopez LPN documented in this encounter [facility] 07-14-2024 Evaluation note Diagnosis Onset Date Resolution Abdominal pain acute July 142023 11:39am [facility] Work Phone: 1(726) 329-770010-18-2023 Progress note Author Kelly Hough [facility] July 03, 2023 10:09pm Note Date/Time June 27, 2023 1 0:36am [facility] [place] [address] Hem/Onc Follow Up Note - OP Signed Patient: Leandra Fonseca MR#: [id number] : 1990 Acct:[id number] Age/Sex: 33 / F Type: REG RCR Copies to: Yudelka Lopez APRN, C SOFTWARE ENGINEER-C~ Date of Service: 06/27/2023 Time of Service: [...] She believes she had this done at [facility] in [place] in 2019. We will request these records, and if they are not available, will plan repeat testing including hemoglobin electrophoresis. In themeantime check b12, folate, copper, epo, reticulocytes, haptoglobin, LDH, and christiano testing. B12 deficiency Will initiate weekly B12 injections x 4, then switch to monthly Follow Up Instructions: b12 weekly x 4 then monthly get [facility] records from 2019- hgb electrophoresis, thalassemia [...] cravings denies new complaints. 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 Her heavy days she [...] for coordination of care (as documented) and [id number]-vv-[id number] counseling of patient and/or family. [facility] - Medical History Medical History: Medical History [...] By: <Electronically signed by BETTY Hough> 07/03/23 2[address] [facility] Work Phone: 1(698) 131-478009-18-2023 Evaluation note* Encounter Date Diagnosis Assessment Notes Treatment Notes Treatment Clinical Notes May, Rash and nonspecific skin eruption (ICD-10 - R21) 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 Given return precautions. [facility] Other 07-18-2023 Progress note Author Kelly Hough [facility] April 03, 2023 9:16am Note Date/Time March 21, 2023 3:35p m [facility] [place] [id number] Hem/Onc Follow Up Note - OP Signed Patient: Leandra Fonseca MR#: [id number] : 1990 Acct:[id number] Age/Sex: 32 / F Type: REG RCR [...] cravings denies new complaints. 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 Her heavy days she [...] after visit and call with concerning results [facility] - Medical History Medical History: Medical [...] 25 mg rectal suppository (Anusol-HC) 25 mg OK DAILY 2 weeks #12 ea 02/06/23 [Rx [...] for coordination of care (as documented) and oqhl-zc-reev counseling of patient and/or family. Dictated By: Kelly Hough APRN DD/ 1535 Signed By: <Electronically signed by BETTY Hough> 04/03/23 1364 [facility] Work Phone: 1([phone]) 446-273104-19-2023 Progress note Author Kelly Hough [facility] January 03, 2023 2:03pm Note Date/Time January 02, 2023 10: 47am [facility] [address] [address] Hem/Onc Follow Up Note - OP Signed Patient: Leandra Fonseca MR#: [id number] : 1990 Acct:[id number] Age/Sex: 32 / F Type: REG RCR [...] cravings denies new complaints. 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 Dictated By: Kelly Hough APRN DD/ 1046 Signed By: <Electronically signed by BETTY Hough> 01/03/23 1403 [facility] Work Phone: [phone]) 327-351804-07-2023 Evaluation note* Encounter Date Diagnosis Assessment Notes Treatment Notes Treatment Clinical Notes Dec, Abdominal pain (ICD-10 - R10.9) Dec, Bloating (ICD-10 - R14.0) Dec, Nausea (ICD-10 - R11.0) [facility] Other 04-06-2023 Evaluation note* Encounter Date Diagnosis [...] - K92.1) Dec, Other Obtain records from [facility] in 2019 for EGD/Colonoscopy [facility] [employer] Other 01-17-2023 Consult note Author Kelly Hough [facility] October 03, 2022 1:04pm Note Date/Time October 03, 2022 1 1:23am [facility] [place] [address] Hem/Onc Consult Note - OP Signed with Addenda Patient: Leandra Fonseca MR#: [id number] : 1990 Acct:[id number] Age/Sex: 32 / F Type: REG RCR Copies to: Yudelka Lopez APRN, C SOFTWARE ENGINEER-C~ ADDENDUM1 Patient had labs after her visit that show persistent iron deficiency with ferritin low at 7.7 and hgb 9.7. Iron saturation ok, will still plan to replete with IV Venofer and follow-up as scheduled. Addendum Dictated By: BETTY oHugh Addendum Signed By: 10/03/221303 Addendum Cosigned By: DD/ TD/TT: 10/03/22 HPI Date/Time of Service: Date of Service: 10/03/2022 Time of Service: 11:23 Referring Provider/PCP: Referring Provider: Yudelka Lopez APRN, NP-C PCP: Yudelka Lopze APRN, NP-C - History of Present Illness [...] going to the ER with worsening symptoms. [facility] - Medical History Medical History: Medical History [...] for coordination of care (as documented) and foqu-iq-kwnj counseling of patient and/or family. Dictated By: Kelly Hough APRN DD/ 1123 Signed By: <Electronically signed by BETTY Hough> 10/03/22 125[address] [facility] Work Phone: 1(509) 330-845407-18-2022 NotePROCEDURE DETAILS Preoperative Diagnosis: Left abdominal wall endometrioma Postoperative Diagnosis: Same Surgeon: Sly Crocker Resident/Fellow/Other Insurance Underwriter: Ariel Thompson Procedure: 1. LEFT ABDOMINAL WALL TUMOR RESECTION 8X5.5X4CM 2. MESH RECONSTRUCTION ANTERIOR RECTUS FASCIA 7X5CM DEFECT (Bard Soft Mesh) 3. COMPLEX CLOSURE OF A 8CM WOUND Anesthesia: Alan Pardo Estimated Blood Loss: 10ml Findings: 8X5.5X4CM SOFT TISSUE MASS WITH EN BLOC FASCIA AND OVERLYING SKIN PADDLE Specimens(s) Collected: yes, Left anterior wall soft tissue mass -short shxefcuw61:00, long lateral 300 Complications: None Drains and/or [...] of the procedure. Note Recipients: Yudelka Lopez, SERVICE ORDER DISPATCHER-SCREEN PRINTING SUPERVISOR MALCOLM PENDLETON R - [phone] [] Attestation: Note Completion: Attending AttestationI was present for the entire procedure Electronic Signatures: Sly Crocker) (Signed 03-Apr-2022 17:55) Authored: Post-Operative Note, Chart Review, Note Completion Last Updated: 03-Apr-2022 17:55 by Sly Crocker)[facility]07-18-2022 NoteHistory & Physical Reviewed: /Lactating: [...] the note. I personally evaluated the patient [id number] Electronic Signatures: Miguel Crawford (Resident)) (Signed 03-Apr-2022 12:08) Authored: History & Physical Reviewed, ERAS, Consent, Note Completion Sly Crocker) (Signed 03-Apr-2022 14:42) Authored: Note Completion Co-Signer: History & Physical Reviewed, ERAS, Consent, Note Completion Last Updated: 03-Apr-2022 14:42 by Sly Crocker)[facility] No data available for this section [facility] [place] Evaluation noteNo assessment information available [facility] Work Phone: Evaluation note* Diagnosis Onset Date Resolution Status Iron deficiency anemia due to chronic blood loss acute [facility] Work Phone: Evaluation note* Diagnosis Onset Date Resolution Status Abdominal pain acute [facility] Work Phone: Evaluation note* Diagnosis Missed menses , unspecified gestational age Encounter for supervision of normal first in first trimester Nausea and vomiting in Unspecified vomiting of , unspecified as to episode of care documented in this encounter [facility] HealthcareEvaluation note* Diagnosis 10 weeks gestation of First trimester state, incidental Other headache syndrome Nausea and vomiting during Thyroid disease affecting (CMS/HCC) documented in this encounter [facility] N[facility]ative - Reported* Type Description Date Medical History concussion Medical History IBS-C Surgical History C SECTION Hospitalization History see above [facility] Other History of Present illness Narrative* Ms. Fonseca is a 31-year-old female presenting with a painful and growing left lower abdominal wallmass. She was referred by Dr. aMlcolm Pendleton for evaluation and management of this [...] sensorimotor deficits * Extremities: No leg swelling [facility]: History of Present illness Narrative* [...] to the telephone nature of this visit. [facility] Work Phone: Hospital Discharge instructions Additional Instructions If your symptoms return/worsen or you develop any further concerns or symptoms please see your doctor or return to the emergency department immediately.[facility] Work Phone: Hospital Discharge instructions Additional Instructions Follow-up with your primary care doctor Return to ED if you develop worsening symptoms or concerns[facility] Work Phone: Hospital Discharge instructions Additional Instructions Return for worsening symptoms [facility] Work Phone: Hospital Discharge instructions No data available for this section [facility] Discharge instructions Additional Instructions We evaluated you for your symptoms. Your workup here was unremarkable. Please use the nausea medicine as prescribed. Please follow closely with your primary doctor. Please return to the emergency department if you develop any worsening or concerning symptoms. [facility] Work Phone: Progress note No data available for this section [facility] Summary Purpose Family History No Family History [...] section and content) DATE CREATED AUTHOR 04/07/2022 [facility] DATE CREATED AUTHOR AUTHOR'S ORGANIZ ATION 04/23/2022 [employer] DATE CREATED AUTHOR AUTHOR'S ORGANIZ ATION 04/28/2022 [facility] DATE CREATED AUTHOR AUTHOR'S ORGANIZ ATION 05/16/2022 [facility] DATE CREATED AUTHOR AUTHOR'S ORGANIZ ATION 12/21/2022 [facility] DATE CREATED AUTHOR AUTHOR'S ORGANIZ ATION 12/11/2023 [facility] DATE CREATED AUTHOR AUTHOR'S ORGANIZ ATION 02/22/2024 [facility] DATE CREATED AUTHOR AUTHOR'S ORGANIZ ATION 09/12/2024 [facility] EPIC DATE CREATED AUTHOR AUTHOR'S ORGANIZ ATION 09/14/2024 [facility] Care Teams (unrecognized sec tion and content) Team Status: Active Member Role Status Dates Yudelka Lopez APRN C SOFTWARE ENGINEER-C Primary Care Provider Act klever Team Status: Inactive Member Role Status Dates Yudelka Lopez APRN C SOFTWARE ENGINEER-C Primary Care Provider Act klever Start: July 14, 2024 End: July 14, 2024 Larry Underwood PA-C Attending Provider Active St art: July 14, 2024 End: July 14, 2024 Team Status: Active Member Role Status Dates Yudelka Lopez APRN C SOFTWARE ENGINEER-C Primary Care Provider, Re ferring Provider Active Kelly Hough APRN Attending Provider Acti pete Team Status: Inactive Member Role Status Dates Yudelka Lopez APRN C SOFTWARE ENGINEER-C Primary Care Provider Act kleveralbino Horton MD Attending Provider Active Team Status: Inactive Member Role Status Dates Yudelka Lopez APRN C SOFTWARE ENGINEER-C Primary Care Provider Act kleveralbino Vega PA-C Emergency Provider Active Team Status: Active Member Role Status Dates Yudelka Lopez APRN C SOFTWARE ENGINEER-C Primary Care Provider, At tending Provider Active Team Status: Inactive Member Role Status Dates Yudelka Lopez APRN C SOFTWARE ENGINEER-C Primary Care Provider Act klever Shanks MD Attending Provider Active Dayne Horton MD Referring Provider Active Team Status: Inactive Member Role Status Dates Yudelka Lopez APRN C SOFTWARE ENGINEER-C Primary Care Provider, At tending Provider Active Team Status: Inactive Member Role Status Dates Yudelka Lopez APRN C SOFTWARE ENGINEER-C Primary Care Provider Act kleveralbino Silva DO Emergency Provider Active Team Status: Inactive Member Role Status Dates Yudelka Lopez APRN C SOFTWARE ENGINEER-C Primary Care Provider Act klever Sly Crocker MD Attending Provider Active Team Status: Inactive Member Role Status Dates Yudelka Lopez APRN C SOFTWARE ENGINEER-C Primary Care Provider Act kleveralbino Vega DO Emergency Provider Active Team Status: Inactive Member Role Status Dates Yudelka Lopez APRN C SOFTWARE ENGINEER-C Primary Care Provider Act kleveralbino Greenwood DO Emergency Provider Active Team Status: Inactive Member Role Status Dates Yudelka Lopez APRN C SOFTWARE ENGINEER-C Primary Care Provider Act kleveralbino Serrano Jr, MD Emergency Provider Active Team Status: Inactive Member Role Status Dates Yudelka Lopez , SERVICE ORDER DISPATCHER C SOFTWARE ENGINEER-C Primary Care Provider Act klever Frank Silva , DO Emergency Provider Active Vicky Fuentes DO RES Active Team Status: Inactive Member Role Status Dates Yudelka Lopez , SERVICE ORDER DISPATCHER C SOFTWARE ENGINEER-C Primary Care Provider Act klever Tejinder Peraza , C SOFTWARE ENGINEER-C Attending Provider Active Team Status: Inactive Member Role Status Dates Jim Vega , DO Emergency Provider Active Yudelka Lopez , SERVICE ORDER DISPATCHER C SOFTWARE ENGINEER-C Primary Care Provider Act klever Team Status: Inactive Member Role Status Dates Yudelka Lopez , SERVICE ORDER DISPATCHER C SOFTWARE ENGINEER-C Primary Care Provider Act klever Jose Shanks MD Attending Provider Active Team Status: Inactive Member Role Status Dates Yudelka Lopez , SERVICE ORDER DISPATCHER C SOFTWARE ENGINEER-C Attending Provider Active Team Status: Inactive Member Role Status Dates Yudelka Lopez , SERVICE ORDER DISPATCHER C SOFTWARE ENGINEER-C Primary Care Provider Act klever Start: July 14, 2024 End: July 14, 2024 Sarah Dodd DO Emergency Provider Active Start: July 14, 2024 End: July 14, 2024 Lety Dougherty DO RES Active Sta rt: July 14, 2024 End: July 14, 2024 Team Status: Active Member Role Status Dates Yudelka Lopez , SERVICE ORDER DISPATCHER C SOFTWARE ENGINEER-C Primary Care Provider Act klever Start: August 06, 2024 Marvin Serrano Jr, MD Emergency Provider Active Start: August 06, 2024 Julián Naqvi MD Admit Provide r, Attending Provider Active Start: August 06, 2024 Silk Examiner Relationship Specialty Start Date End Date Sarah Lopez DO [address] [place] [address] Referring Physician Emergency Medicine 02/18/23 Silk Examiner Relationship Specialty Start Date End Date Sarah Lopez DO [address] [place] [address] Referring Physician Emergency Medicine 02/18/23 Silk Examiner Relationship Specialty Start Date End Date Sarah Lopez DO [address] [place] [address] Referring Physician Emergency Medicine 02/18/23 Silk Examiner Relationship Specialty Start Date End Date Sarah Lopez DO [address] [place] [address] Referring Physician Emergency Medicine 02/18/23 Silk Examiner Relationship Specialty Start Date End Date Sarah Lopez DO [address] [place] [address] Referring Physician Emergency Medicine 02/18/23 Goals (unrecognized [...] ed section and content) Reason Comments Amenorrhea Reason Comments Routine Visit FOR RECORDS PERTAINING TO PATIENTS WHO ARE [...] BE BASED ON THE PRIMARY CLINICAL RECORDS. [employer] provides no warranty or guarantee of the accuracy or completeness of information in this document.
[2024-10-20 18:08] LABS: Age Gdln ACOG Testing Note (.); HPV Aptima Positive (Negative); IGP, Aptima HPV, rfx 16/18,45 Note (.)
== END 2024-10-14 20:20 | disposition home or self-care (01) ==
LOC: LAB 20:19
PROVIDERS: Visit Provider Physician Assistant
DX: Z01.419 Encounter for gynecological examination (general) (routine) without abnormal findings (principal)
CPT/HCPCS: 87624; 88175

== ENCOUNTER 2024-12-29 03:21 | Emergency (ER) | payer MEDICAID, SELFPAY ==
[2024-12-29 03:27] VITALS: BP 124/88; PULSE 98; TEMP 37.1; O2SAT 99; BMI 32.9
--- OUTSIDE RECORDS SUMMARY | 2024-12-29 03:29 | XMS_ITS | CCD ---
Author Organization [facility] Care Team Providers Care Assistant Technician Name Role Phone Unknown, Unknown Unavailable Unavailable Yudelka Lopez Unavailable Unavailable Unavailable BETTY Lopez Primary Care Provider DO Chris Greenwood Emergency Provider [phone] DO Jim Vega Emergency Provider MD Sly Crocker Attending Provider DO Frank Silva Emergency Provider BETTY Lopez Attending Provider MD Marvin Serrano Jr Emergency Provider BETTY Lopez Primary Care Provider DO Frank Silva Emergency Provider BETTY Lopez Primary Care Provider DO Frank Silva Emergency Provider [phone] NADYA Peraza Attending Provider [phone] DO Jim Vega Emergency Provider [phone] BETTY Lopez Primary Care Provider BETTY Lopez Attending Provider BETTY Lopez Referring Provider BETTY Hough Attending Provider MD Dayne Horton Attending Provider [phone] BETTY Lopez Lora Primary Care Provider NADYA Peraza Attending Provider DO Jim Vega Emergency Provider BETTY Lopez Attending Provider MD Dayne Horton Attending Provider [phone] John, BETTY Jha Lora Referring Provider BETTY [...] Unavailable MICHEAL TANNER Consulting Unavailable MISC, DR CAMPUZANO Primary Care Unavailable STEFFEN, MELL Attending Unavailable STEFFEN, MELL Admitting Unavailable STEFFEN, MELL Consulting Unavailable LENI ANGEL Consulting Unavailable ALAN, DR JUDGE Primary Care Unavailable HELDER ., DR SIFUENTES Attending Unavailable URI, DR JENN Wang Consulting Unavailable HELDER ., DR SIFUENTES Admitting Unavailable HELDER ., DR SIFUENTES Consulting Unavailable HELDER ., DR SIFUENTES Attending Unavailable UDAYC, DR CAMPUZANO Primary Care Unavailable HELDER ., [...] Care Provider MD Jose Shanks Attending Provider MD Dayne Horton Referring Provider BETTY Lopez Primary Care Provider [phone] BETTY Lopez Attending Provider BETTY Lopez Lora Referring Provider BETTY Hough Attending Provider WALDO LopezN Yudelka Lora Primary Care Provider DO Jim Vega Emergency Provider [phone] WALDO LopezN Yudelka Lora Referring Provider BETTY Hough Attending Provider BETTY Lopez Lora Referring Provider BETTY Hough Attending Provider Alfie Matthews Primary Care Physician BETTY Lopez Primary Care Provider MD Dayne Horton Attending Provider BETTY Lopez Referring Provider BETTY Hough Attending Provider Marvin Fontenot Unavailable BETTY Lopez Lora Referring Provider BETTY Hough Attending Provider BETTY Lopez Lora Primary Care Provider WALDO LopezN Yudelka Lora Referring Provider [place], POTATO LOADERFamilia Lugo Attending Provider Lopez, POTATO LOADER Yudelka Lora Attending Provider Lopez, POTATO LOADER Yudelka Lora Primary Care Provider Lopez, POTATO LOADER Yudelka Lora Referring Provider [place], POTATO LOADER Kelly Lugo Attending Provider Lex Elizabeth Attending Unavailable Kelly Hough Referring Unavailable Kelly Hough Referring Unavailable Lex Elizabeth Attending Unavailable Manas Simental Attending Unavaila ble BETTY Lopez Yudelka Lora Primary Care Provider DO Sarah Dodd Emergency Provider John POTATO LOADER, Yudelka Lora Primary Care Provider Sarah Dodd DO Emergency Provider [phone] Marvin Serrano MD Emergency Provider [phone] Julián Naqvi MD Admit Provider Julián Naqvi MD Attending Provider John GOLDBERG Sarah Unavailable Malcolm Pendleton DO Attending Provider John POTATO LOADER, Yudelka Lora Referring Provider [place] POTATO LOADERKlely Barbosa Attending Provider Alfie Matthews MD Primary Care Provider Alfie Matthews Primary Care Unavailable Kelly Hough Admitting Unavail able Kelly Hough Attending Unavail able Lopez, Yudelka Lora Referring Unavailable Jim Vega Admitting Unavailable Jim Vega Attending Unavailable Lopez, Yudelka Lora Primary Care Unavailable Malcolm Pendleton Attending Unavailable Malcolm Pendleton Admitting Unavailable Julián Naqvi Attending Unavailab le John, Yudelka Lora Primary Care Unavailable Julián Naqvi Admitting Unavailab le Julián Naqvi Attending Unavailab Tam Carrera Unavailable Yudelka Lopez Primary Care Unavailable Julián Navqi Admitting Unavailab le KeFrank lerner A Admitting Unavailable Keister, Frank A Attending Unavailable Yudelka Lopez Primary Care Unavailable Yudelka Lopez Primary Care Unavailable Yousif, Sarah M Admitting Unavailable Yousif Sarah M Attending Unavailable No Pcp, No Pcp Primary Care Provider UnavailPRISCILLA Velasquez Attending Unavailable HELDER, MALCOLM Attending Unavailable NARESH CHUNG Attending Unavailable PRISCILLA WARREN Attending Unavailable HELDER, MALCOLM Attending Unavailable HELDER, MALCOLM Attending Unavailable HELDER, MALCOLM Attending Unavailable No Pcp, No Pcp Primary Care Provider Unavailabl e HELDER, MALCOLM R Referring Unavailable NO PCP, NO PCP Primary Care Unavailable HENNY MONTGOMERY Attending Unavailable HELDER, MALCOLM R Referring Unavailable NO PCP, NO PCP Primary Care Unavailable HELDER, MALCOLM R Referring Unavailable NO PCP, NO PCP Primary Care Unavailable JANETTE ACKERMAN Attending Unavailable NO PCP, NO PCP Primary Care Unavailable HELDER, MALCOLM R Referring Unavailable NO PCP, NO PCP Primary Care Unavailable Allergies Allergy Classification Reported Allergen(s) Allergy Type Date of Onset Reaction(s) Facility (6 sources) Albuterol; Translations: [albuterol] Drug Allergy [id number] Work Phone: (20 sources) Labetalol; Translations: [Labetalol] Drug Allergy 2 Shortness of breath, Unknown, Other [facility] (10 sources) THYROID MEDICATION Allergy to substance 3 Rash [facility] (7 sources) methIMAzole; Translations: [METHIMAZOLE] Drug Allergy 4 anaphylaxis [facility] (10 sources) methIMAzole Drug Allergy 5 anaphylaxis [employer] Other (14 sources) cefdinir; Translations: [CEFDINIR] Drug Allergy 4 Unknown, Unknown Reaction [facility] (20 sources) Labetalol; Translations: [LABETALOL HCL] Drug Allergy 3 Hives [facility] (17 sources) methIMAzole Drug Allergy 3 [facility] (15 sources) cefdinir Drug Allergy 4 [facility] (1 source) cefdinir Drug Allergy 4 [facility] (1 source) methIMAzole Drug Allergy 4 [facility] Medications Current Medications Medication Drug Class(es) Dates Sig (Normalized) Sig (Original) All Day Allergy 10 mg oral tablet (2 sources) Start: 11-19-2020 take 1 tablet by mouth once daily All Day Allergy 10 mg oral tablet 10 mg = 1 tab(s), Oral, Daily, # 30 tab(s), Refills(s) 0, [facility]acy: [facility] [address], [address], cm, 11/19/20 19:36:00 EST, Height/Length Dosing, 77, kg, 11/19/20 19:36:00 EST, Weight Dosing Start Date: 11/19/20 Status: Ordered benzoyl peroxide 0.05 mg/mg topical gel (2 sources) Start: 11-18-2024 benzoyl peroxide 5 % gel Indications: Acne vulgaris Apply to face once a day, in the morning, 30 day supply 60 g 11/18/2024 Active Start: 11-18-2024 benzoyl peroxi de 5 % gel Indications: Acne vulgaris Apply to face once a day, in the morning, 30 day supply 60 g 11/18/2024 Active clindamycin 0.01 mg/mg topical gel (2 sources) Lincosamide Antibacterial Start: 11-18-2024 clindamycin (Clindagel) 1 % gel Indications: Acne vulgaris Apply thin layer to face, once daily in the morning, 30 day supply 60 g 11 11/18/2024 Active Start: 11-18-2024 clindamycin (C lindagel) 1 % gel Indications: Acne vulgaris Apply thin layer to face, once daily in the morning, 30 day supply 60 g 11/18/2024 Active ergocalciferol 1.25 mg oral capsule (2 sources) Provitamin D2 Compound Vitamin D (Ergocalciferol) 1.25 MG (89044 UT) Oral for 28 Days Active fluticasone 0.05 mg/inh Nasal [place] (2 sources) Start: take 2 spray(s) nasal route once daily fluticasone 0.05 mg/inh Nasal [place] 2 spray(s), Nasal, Daily, 16 gram, Refill(s) 0, each nostril, [facility], 158, cm, 11/19/20 19:36:00 EST, Height/Length Dosing, 77, kg, 11/19/20 19:36:00 EST, Weight Dosing Start Date: 11/19/20 Status: Ordered labetalol hydrochloride 100 mg oral tablet (7 sources) beta-Adrenergic Marbin take 1 tablet by mouth twice daily labetalol (NORMODYNE) 100 mg tablet Take 100 mg by mouth 2 (two) times a day. Active levonorgestrel 0.955536 mg/hr intrauterine system (3 sources) Progestin, Progestin-containing Intrauterine Device End: Levonorgestrel (Mirena, 52 MG,) 20 MCG/DAY intrauterine device by Intrauterine route 08/26/2024 Discontinued (Other) magnesium oxide 400 mg oral tablet (20 sources) Start: End: 025 take 1 tablet by mouth once daily magnesium oxide (Mag-Ox) 400 MG tablet Indications: Other headache syndrome Take 1 tablet (400 mg) by mouth Daily 30 tablet 6 11/04/2024 12/04/2024 Active [place] (No Known Home Meds) (2 sources) Start: [place] (No Known Home Meds) Active November 24, 2023 1:00am Start: 06-27-2023 [place] (No Kn own Home Meds) Active June 27, 2023 12:00am pantoprazole 40 mg delayed release oral tablet (2 sources) Proton Pump Inhibitor Pantoprazo le Sodium 40 MG Oral for 30 Days Active permethrin 50 mg/ml topical cream (1 source) Pyrethroid Start: Permethrin 5 % 1 application from head to toe Externally apply tonight, then apply again in 14 days for 2 days May, Active polysaccharide iron complex 391 mg oral capsule (3 sources) Start: End: 025 take 1 capsule by mouth once daily iron polysaccharides (ProFe) 391.3 (180 Fe) MG capsule Indications: Low hemoglobin Take 1 capsule (391.3 mg) by mouth Daily 30 capsule 6 09/15/2024 10/15/2024 Active predniSONE 20 mg oral tablet (1 source) Start: 023 take 1 tablet by mouth every eight hours predniSONE 20 MG 1 tablet Orally 3 times a day for 5 days May, Active 25/iron fum/folic/dha (-1 ORAL) (7 sources) take 1 tablet by mouth once daily 25/iron fum/folic/dha (-1 ORAL) Take 1 tablet by mouth daily. Active Multivitamins with Folic Acid 1 mg and Docusate oral kit (2 sources) Start: 019 Multivitamins with Folic Acid 1 mg and Docusate oral kit Oral, Daily, Refill(s) 0, Prophylaxis Start Date: 05/28/19 Status: Ordered Vit No.[id number] ( Vitamin) 27 mg iron- 800 mcg Tablet (1 source) Start: 024 take 1 tablet by mouth once daily Vit No.[id number] ( Vitamin) 27 mg iron- 800 mcg Tablet Active 1 TAB PO Daily August 08, 2024 12:00am triamcinolone acetonide 1 mg/ml topical cream (2 sources) Corticosteroid Start: triamcinolone (Kenalog) 0.1 % cream Indications: Other atopic dermatitis Apply to affected areas, up to twice a day when flared, do not use one the face, groin, or underarms, 30 day supply 454 g 11/18/2024 Active Start: 11-18-2024 triamcinolone (Kenalog) 0.1 % cream Indications: Other atopic dermatitis Apply to affected areas, up to twice a day when flared, do not use one the face, groin, or underarms, 30 day supply 454 g 11/18/2024 Active 24 hr venlafaxine 37.5 mg extended release oral capsule (6 sources) Serotonin and Norepinephrine Reuptake Inhibitor Start: 11-04-2024 End: 11-04-2025 take 1 capsule by mouth once daily venlafaxine XR (Effexor XR) 37.5 MG 24 hr capsule Indications: Mood disorder (CMS/HCC) Take 1 capsule (37.5 mg) by mouth Daily Do not crush or chew. 30 capsule 11/04/2024 11/04/2025 Active Completed/Discontinued Medications Medication Drug Class(es) Dates Sig (Normalized) Sig (Original) [id number] 200 actuat albuterol 0.09 mg/actuat metered dose [...] 12:54pm docusate sodium 100 mg oral capsule (20 sources) Start: 06-01-2022 End: 09-21-2022 take 1 [...] 2018 11:00pm March 01, 2019 10:45am fluticasone (20 sources) Corticosteroid Start: 09-24-2023 End: 11-16-2023 Fluticasone [...] Fluticasone Propionate 50 mcg/actuation Blister With Device (2 sources) Start: 09-24-2023 End: 11-16-2023 Fluticasone Propionate 50 mcg/actuation Blister With Device Discontinued 1 INH INHALATION Daily September 24, 2023 12:00am November 16, 2023 5:40pm folic acid 1 mg oral tablet (10 sources) Start: 09-28-2023 End: 11-24-2023 take 1 tablet by mouth once daily Folic Acid 1 mg Tablet Discontinued 1 MG PO Daily September 28, 2023 2:52pm November 24, 2023 7:54am hydrocortisone acetate 25 mg rectal suppository (10 sources) Corticosteroid Start: 02-06-2023 End: 06-27-2023 Hydrocortisone Acetate (Anusol-Hc) 25 mg suppository Discontinued 25 MG MO Daily 08 30February 05, 2023 11:00pm June 27, 2023 9:32am hydrocortisone acetate 10 mg/ml / pramoxine hydrochloride 10 mg/ml rectal foam (20 sources) Corticosteroid Start: 06-01-2022 End: 09-21-2022 Hydrocortisone-Pram oxine (Proctofoam Hc) 1-1 % foam Discontinued 1 APPLIC MO Three times daily 06 23May 31, 2022 [...] Start: 03-02-2020 take 1 capsule by mo [facility] once daily linaclotide 145 mcg oral capsule 145 microgram = 1 cap(s), Oral, Daily, # 30 cap(s), Refills(s) 0, [facility]acy: [facility], [address], cm, 03/02/20 13:33:00 EDT, Height/Length Measured, 79.9, kg, 03/02/20 13:33:00 EDT, Weight Measured Start Date: 03/02/20 Status: Ordered methylPREDNISolone 4 mg oral tablet (4 sources) Corticosteroid Start: 11-16-2023 End: 11-24-2023 take 1 tablet by mouth once Methylprednisolone (Medrol (Sundar)) 4 mg tablets,dose pack Discontinued 0 PO per package directions November 16, 2023 12:00am November 24, 2023 7:54am orally per package directions; PO PER PKG DIR for 6 days metoclopramide 10 mg oral tablet (19 sources) Dopamine-2 Receptor Antagonist Start: 08-26-2024 End: [...] needed for nausea.. 90 tablet 2 08/26/2024 11/04/2024 Discontinued Metoclopramide H Cl 5 MG Oral for 5 Days Active ondansetron 4 mg disintegrating oral tablet (20 sources) Serotonin-3 Receptor Antagonist Start: 08-08-2024 End: 11-04-2024 take 1 tablet by mouth every eight hours as needed ondansetron ODT (Zofran-ODT) 4 MG disintegrating tablet Take 4 mg by mouth every 8 (eight) hours if needed 08/08/2024 11/04/2024 Discontinued Start: 08-08-2024 take 1 tablet by shantel th every six hours as needed for nausea and vomiting Ondansetron 4 mg Tablet,Disintegrating Active 4 MG PO Every 6 hours as needed for Nausea And Vomiting August 08, 2024 12:00am Start: 07-14-2024 End: 08-08-2024 take 1 tablet by mouth every eight hours as needed for nausea and vomiting Ondansetron Hcl 4 mg tablet Discontinued 4 MG PO Q8H as needed for nausea and vomiting August 07, 2024 12:00am August 08, 2024 2:14pm Start: 09-24-2023 End: 11-24-2023 take 1 tablet [...] 03, 2022 11:00pm June 01, 2022 12:31am ondansetron (ZOF RAN) 8 mg tablet Take by mouth every 8 (eight) hours as needed for nausea or vomiting. Active oxyCODONE hydrochloride 5 mg oral tablet (20 [...] 2018 12:00am November 26, 2018 10:27pm Pnv,Calcium 54-Caym-Unhly Ac id ( Vitamin Plus Low Iron) 27 mg iron- 1 mg tablet (20 sources) Start: 03-01-2019 End: 12-11-2019 Pnv,Calcium 77-Ysnt-Lxchr Ac id ( Vitamin Plus Low Iron) 27 mg iron- 1 mg tablet Discontinued 27 MG PO Daily February 28, 2019 11:00pm December 11, 2019 8:47pm Start: 03-01-2019 End: 12-11-2019 Pnv,Calcium 35-Afpz-Tjqcm Ac id ( Vitamin Plus Low Iron) 27 mg iron- 1 mg tablet Discontinued 27 MG PO Daily March 01, 2019 12:00am December 11, 2019 9:47pm promethazine hydrochloride 12.5 mg oral tablet (20 sources) Phenothiazine Start: 09-11-2024 End: 11-04-2024 take 1 tablet by mouth every six [...] needed for nausea. 30 tablet 2 09/11/2024 11/04/2024 Discontinued Start: 01-26-2019 End: 03-01-2019 take 1 tablet [...] of bedtime propylthiouracil 50 mg oral tablet (12 sources) Thyroid Hormone Synthesis Inhibitor Start: 02-06-2023 End: 06-27-2023 take 1 tablet by mouth once daily Propylthiouracil 50 mg tablet Discontinued 50 MG PO Daily February 05, 2023 11:00pm June 27, 2023 9:32am Propylthiouracil 50 MG Oral for 30 Days Active Psyllium Seed (Sugar) (Metamucil (Sugar) Oral Powder) powder (20 sources) Start: 06-01-2022 End: 09-21-2022 take 8 [...] Classification Problem Date Documented Da te Episodic/Chronic Adjustment disorders (2 sources) Grief finding; Translations: [Adjustment disorder with depressed mood] Onset: 08-06-2024 08-07-2024 Chronic Allergic reactions (2 sources) Atopic dermatitis; Translations: [Other atopic dermatitis] 11-18-2024 Chronic Cancer of cervix (1 source) Cervical intraepithelial neoplasia grade 1; Translations: [Low grade squamous intraepithelial lesion on cytologic smear of cervix (LGSIL)] 11-04-2024 Episodic Deficiency and other anemia (15 sources) Iron deficiency anemia due to blood loss; Translations: [Iron deficiency anemia secondary to blood loss (chronic)] 10-03-2022 Chronic Deficiency and other anemia (13 sources) Iron deficiency anemia secondary to blood loss (chronic); Translations: [Iron deficiency anemia secondary to blood loss (chronic)] Onset: 11-10-2024 10-10-2022 Chronic Deficiency and other anemia (3 sources) Alpha trait thalassemia; 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] 12-09-2024 Chronic Deficiency and other anemia (2 sources) Thalassemia minor; 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] Onset: 12-12-2024 Chronic Deficiency and other anemia (20 sources) Chronic anemia; Translations: [Anemia, unspecified] 03-15-2022 Episodic Deficiency and other anemia (17 sources) Anemia; Translations: [Anemia, unspecified] 09-21-2022 Episodic Deficiency and other anemia (6 sources) Nutritional anemia; Translations: [Vitamin B12 deficiency [...] and rectum] 06-01-2022 Episodic Headache; including migraine (3 sources) Headache disorder; Translations: [Other headache syndrome] 09-11-2024 Episodic Heart valve disorders (2 sources) Heart murmur 11-28-2013 Episodic Hemorrhage during ; abruptio placenta; placenta previa (20 sources) Threatened miscarriage; Translations: [Threatened ] 03-01-2019 Episodic Immunizations and screening for infectious disease (3 sources) Encounter for screening for human papillomavirus (HPV); Translations: [Exposure to sexually transmissible disorder] Onset: 07-05-2022 10-14-2024 Episodic Intestinal infection (1 source) Viral intestinal infection, unspecified; Translations: [VIRAL INTESTINAL INFECTION UNSPEC] Onset: 12-08-2022 Episodic Lymphadenitis (20 sources) Cervical lymphadenopathy; Translations: [Localized enlarged lymph nodes] 12-11-2019 Episodic Menstrual disorders (1 source) Missed period; Translations: [Irregular menstruation, unspecified] 08-26-2024 Chronic Mood disorders (4 sources) Mood disorder; Translations: [Unspecified mood [affective] disorder] Onset: 08-06-2024 11-04-2024 Chronic Nausea and vomiting (20 sources) Nausea and vomiting; Translations: [Nausea with vomiting, unspecified] Onset: 12-07-2022 01-26-2019 Episodic Nonspecific chest pain (20 sources) Atypical chest pain; Translations: [Other chest pain] Onset: 12-08-2022 03-15-2022 Episodic Other bone disease and musculoskeletal deformities (20 sources) Costal chondritis 01-08-2018 Episodic Other complications of ; puerperium affecting management of mother (8 sources) 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 affecting obstetrical care; Translations: [Choroid plexus cyst of fetus affecting care of mother, antepartum, fetus 1] Onset: 11-21-2024 11-21-2024 Episodic Other complications of (3 sources) Vomiting of , unspecified; Translations: [Unspecified vomiting of , unspecified as to episode of care or not applicable] 08-26-2024 Episodic Other complications of (2 sources) Thyroid disease in mother complicating , childbirth AND/OR puerperium; Translations: [Endocrine, nutritional and metabolic diseases complicating , unspecified trimester] 09-11-2024 Episodic Other complications of (1 source) Abnormal findings on screening of mother; Translations: [Abnormal chromosomal and genetic finding on screening of mother] 12-12-2024 Episodic Other connective tissue disease (14 sources) Foot pain; Translations: [Pain in left foot] 11-28-2022 Episodic Other diseases of veins and lymphatics (20 sources) Lymphedema; Translations: [Lymphedema, not elsewhere classified] 09-09-2019 Chronic Other ear and sense organ disorders (20 sources) Otitis externa; Translations: [Unspecified otitis externa, unspecified ear] 06-14-2020 Chronic Other female genital disorders (2 sources) Vaginal discharge; Translations: [Other specified noninflammatory disorders of vagina] 10-14-2024 Episodic Other gastrointestinal disorders (3 sources) Irritable bowel [...] (2 sources) Abdominal distension (gaseous) Episodic Other lower respiratory disease (20 sources) Dyspnea; Translations: [Dyspnea, unspecified] 04-05-2019 Episodic Other nutritional; endocrine; and metabolic disorders (3 sources) Body mass index 25-29 - overweight; Translations: [Body mass index (BMI) 29.0-29.9, adult] Episodic Other and delivery including normal (20 sources) ; Translations: [Encounter for supervision of normal , unspecified, unspecified trimester] Onset: 09-11-2024 01-26-2019 Episodic Other screening for suspected conditions (not mental disorders or infectious disease) (4 sources) Encounter for screening for malignant neoplasm of cervix; Translations: [Patient encounter status] Onset: 07-05-2022 10-14-2024 Episodic Other skin disorders (6 sources) Abdominal mass; Translations: [Abdominal or pelvic swelling, mass, or lump, unspecified site] Episodic Other skin disorders (1 source) Rash and other nonspecific skin eruption Episodic Other skin disorders (2 sources) Acne vulgaris; Translations: [Acne vulgaris] 11-18-2024 Episodic Other upper respiratory infections (20 sources) Upper respiratory infection; Translations: [Acute upper respiratory infection, unspecified] 12-11-2019 Episodic Ovarian cyst (9 sources) Other ovarian cyst, right side; Translations: [Other ovarian cyst, unspecified side] Onset: 08-01-2022 Episodic Residual codes; unclassified (15 sources) Gestation period, 10 weeks; Translations: [10 weeks gestation of ] Onset: 09-11-2024 09-11-2024 Episodic Residual codes; unclassified (2 sources) Gestation period, 15 weeks; Translations: [15 weeks gestation of ] 10-14-2024 Episodic Residual codes; unclassified (1 source) Gestation period, 18 weeks; Translations: [18 weeks gestation of ] 11-04-2024 Episodic Residual codes; unclassified (1 source) FH: Sickle cell trait; Translations: [Family history of diseases of the blood and blood-forming organs and certain disorders involving the immune mechanism] 12-12-2024 Episodic Residual codes; unclassified (1 source) FH: Thrombosis; Translations: [Family history of ischemic heart disease and other diseases of the circulatory system] 12-12-2024 Episodic Suicide and intentional self-inflicted injury (1 source) Suicidal thoughts; Translations: [Suicidal ideations] 08-16-2024 Episodic Superficial injury; contusion (20 sources) Contusion of lower limb; Translations: [Contusion of left lower leg, initial encounter] 08-17-2020 Episodic Syncope (20 sources) Syncope; Translations: [Syncope and collapse] 03-08-2021 Episodic Unclassified (1 source) Alpha Thal Carrier Onset: 12-12-2024 Unclassified (1 source) Maternal care for (suspected) central nervous system malformation or damage in fetus, choroid plexus cysts, fetus 1; Translations: [Maternal care for (suspected) central nervous system malformation or damage in fetus, choroid plexus cysts, fetus 1] Onset: 11-21-2024 Unclassified (1 source) Object in vaginal Onset: 02-21-2024 Urinary tract infections (20 sources) Urinary tract infectious disease; Translations: [Urinary tract infection, site not specified] 04-05-2019 Episodic Past or Other Problems Problem Classification Problem Date Documented Da te Episodic/Chronic Abdominal pain (20 sources) Abdominal pain; Translations: [Unspecified abdominal pain] Onset: 04-20-2022 12-06-2020 Episodic Other complications of (8 sources) History of pre-eclampsia; Translations: [Supervision of with other poor reproductive or obstetric history, first trimester] Onset: 03-17-2019 11-21-2024 Episodic Other complications of (1 source) Supervision of with other poor reproductive or obstetric history, first trimester; Translations: [Supervision of with other poor reproductive or obstetric history, first trimester] Onset: 03-17-2019 Episodic Other female genital disorders (4 sources) Other specified noninflammatory disorders of vagina; Translations: [OTH SPEC NONINFLAMMATORY D/O VAGINA] Onset: 07-03-2022 Episodic Other gastrointestinal disorders (4 sources) Intra-abdominal and pelvic swelling, mass and lump, unspecified site; Translations: [INTRA-ABD PELV SWELL MASS LUMP] Onset: 02-20-2022 Episodic Other hematologic conditions (11 sources) History of anemia; Translations: [Personal history of diseases of the blood and blood-forming organs and certain disorders involving the immune mechanism] Onset: 03-17-2019 11-21-2024 Episodic Other hematologic conditions (1 source) Personal history of diseases of the blood and blood-forming organs and certain disorders involving the immune mechanism; Translations: [Personal history of diseases of the blood and blood-forming organs and certain disorders involving the immune mechanism] Onset: 03-17-2019 Episodic Other injuries and conditions due to external causes (1 source) Foreign body in vagina Onset: 02-21-2024 Episodic Other nervous system disorders (4 sources) Other acute postprocedural pain; Translations: [OTHER ACUTE POSTPROCEDURAL PAIN] Onset: 04-18-2022 Episodic Previous (1 source) Maternal care for unspecified type scar from previous delivery; Translations: [Maternal care for unspecified type scar from previous delivery] Onset: 03-17-2019 Episodic Unclassified (4 sources) Onset: 06-03-2015 Resolved: 08-17-2020 08-27-2020 NEGATED: Highlighted row has been ruled out!Unclassified (2 sources) No known active problems 05-15-2023 Results Test Name Value Interpretation Reference Range Facility Alanine aminotransferase [En zymatic activity/volume] in Serum or PlasmaOrdered By: Kelly Hough on 11-07-2024 ALT [Catalytic activity/Vol] Alanine aminotransferase [Enzymatic activity/volume] in Serum or Plasma 7-52 [facility] Albumin [Mass/volume] in Ser um or Plasma by Bromocresol green (BCG) dye binding methoOrdered By: Kelly Hough on 11-07-2024 Albumin BCG dye [Mass/Vol] Albumin [Mass/volume] in Serum or Plasma by Bromocresol green (BCG) dye binding metho 3.5-5.7 [facility] Alkaline phosphatase [Enzyma tic activity/volume] in Serum or PlasmaOrdered By: Kelly Hough on 11-07-2024 ALP [Catalytic activity/Vol] Alkaline phosphatase [Enzymatic activity/volume] in Serum or Plasma 34-104 [facility] Aspartate aminotransferase [ Enzymatic activity/volume] in Serum or PlasmaOrdered By: Kelly Hough on 11-07-2024 AST [Catalytic activity/Vol] Aspartate aminotransferase [Enzymatic activity/volume] in Serum or Plasma Low 13-39 [facility] Basophils Auto (Bld) [#/Vol] Ordered By: Kelly France on 11-07-2024 Basophils (Bld) [#/Vol] Automated basophil count 0.0-0.2 [facility] Basophils/100 WBC Auto (Bld) Ordered By: Kelly Hough on 11-07-2024 Basophils/100 WBC (Bld) Automated basophil % . [facility] Bilirubin.total [Mass/volume ] in Serum or PlasmaOrdered By: Kelly Hough on 11-07-2024 Bilirubin [Mass/Vol] Bilirubin.total [Mass/volume] in Serum or Plasma 0.3-1.0 [facility] CBC W Auto Differential pane l (Bld)on 11-07-2024 Basophils (Bld) [#/Vol] 0 10*3/uL 0.0 - 0.2 10*3/uL [facility] Basophils/100 WBC Manual cnt (Syn fld) 0.3 % . [facility] Eosinophils (Bld) [#/Vol] 0.1 10*3/uL 0.0 - 0.45 10*3/uL [facility] Eosinophils/100 WBC Manual cnt (Syn fld) 1.1 % . [facility] Erythrocyte distribution width (RBC) [Ratio] 14.4 % 11.9 - 15.3 % [facility] Hematocrit (Bld) [Volume fraction] 30.7 % Low 34.0 - 46.4 % [facility] Hemoglobin (Bld) [Mass/Vol] 9.7 g/dL Low 11.8 - 15.4 g/dL [facility] Interpretation and review of laboratory results Abnormal [facility] Lymphocytes (Bld) [#/Vol] 1.7 10*3/uL 1.00 - 4.8 10*3/uL [facility] Lymphocytes/100 WBC Manual cnt (Syn fld) 16.9 % . [facility] MCH (RBC) [Entitic mass] 23.3 pg Low 24.7 - 34.3 pg [facility] MCHC (RBC) [Mass/Vol] 31.7 g/dL Low 32.0 - 35.0 g/dL [facility] MCV (RBC) [Entitic vol] 73.4 fL Low 80 - 100 fL [facility] Monocytes (Bld) [#/Vol] 0.7 10*3/uL 0.0 - 0.8 10*3/uL [facility] Monocytes+Macrophages/ 100 WBC Manual cnt (Syn fld) 6.7 % . [facility] Neutrophils (Bld) [#/Vol] 7.4 10*3/uL 1.8 - 7.7 10*3/uL [facility] Neutrophils/100 WBC Manual cnt (Syn fld) 75 % . [facility] 0.1 /100{WBC} 0 - 0.5 /100{WBC} [facility] Platelet mean volume (Bld) [Entitic vol] 9.5 fL 6.3 - 10.7 fL [facility] Platelets (Bld) [#/Vol] 182 10*3/uL 150 - 450 10*3/uL [facility] RBC LM.HPF (Urine sed) [#/Area] 4.18 10*6/uL 3.60 - 5.00 10*6/uL [facility] WBC (Bld) [#/Vol] 9.9 10*3/uL 3.8 - 11.6 10*3/uL [facility] WBC LM.HPF (Urine sed) [#/Area] 9.9 10*3/uL 3.8 - 11.6 10*3/uL [facility] Calcium [Mass/volume] in Ser um or PlasmaOrdered By: Kelly Hough on 11-07-2024 Calcium [Mass/Vol] Calcium [Mass/volume ] in Serum or Plasma Low 8.6-10.3 [facility] Carbon dioxide, total [Moles /volume] in Serum or PlasmaOrdered By: Kelly Hough on 11-07-2024 CO2 [Moles/Vol] Carbon dioxide, tota l [Moles/volume] in Serum or Plasma 21.0-31.0 [facility] Chloride [Moles/volume] in S salas or PlasmaOrdered By: Kelly Hough on 11-07-2024 Chloride [Moles/Vol] Chloride [Moles/vol ume] in Serum or Plasma 98-107 [facility] Complete Blood Count Auto Di ffon 11-07-2024 Basophils (Bld) [#/Vol] 0.0 10*3/uL Normal 0.0-0.2 [facility] Comment on above: Result Comment: PERF ORMED BY: [place] [address] PATHOLOGIST [employer] TRISTEN MOSELEY M.D. Performed By: #### E NATALIE, CBC, CMP #### [address] Basophils/100 WBC (Bld) 0.3 % Normal . [facility] Comment on above: Performed By: #### E NATALIE, CBC, CMP #### [address] Eosinophils (Bld) [#/Vol] 0.1 10*3/uL Normal 0.0-0.45 [facility] Comment on above: Performed By: #### E NATALIE, CBC, CMP #### [address] Eosinophils/100 WBC (Bld) 1.1 % Normal . [facility] Comment on above: Performed By: #### E NATALIE, CBC, CMP #### [address] Erythrocyte distribution width (RBC) [Ratio] 14.4 % Normal 11.9-15.3 [facility] Comment on above: Performed By: #### E NATALIE, CBC, CMP #### [address] Hematocrit (Bld) [Volume fraction] 30.7 % Low 34.0-46.4 [facility] Comment on above: Performed By: #### E NATALIE, CBC, CMP #### [address] Hemoglobin (Bld) [Mass/Vol] 9.7 g/dL Low 11.8-15.4 [facility] Comment on above: Performed By: #### E NATALIE, CBC, CMP #### [place] [address] [place] Lymphocytes (Bld) [#/Vol] 1.7 10*3/uL Normal 1.00-4.8 [facility] Comment on above: Performed By: #### E NATALIE, CBC, CMP #### [address] Lymphocytes/100 WBC (Bld) 16.9 % Normal . [facility] Comment on above: Performed By: #### E NATALIE, CBC, CMP #### [address] MCH (RBC) [Entitic mass] 23.3 pg Low 24.7-34.3 [facility] Comment on above: Performed By: #### E NATALIE, CBC, CMP #### [address] MCV (RBC) [Entitic vol] 73.4 fL Low 80-100 [facility] Comment on above: Performed By: #### E NATALIE, CBC, CMP #### [address] Mean Corpuscular HGB Conc 31.7 g/dL Low 32.0-35.0 [facility] Comment on above: Performed By: #### E NATALIE, CBC, CMP #### [address] Monocytes (Bld) [#/Vol] 0.7 10*3/uL Normal 0.0-0.8 [facility] Comment on above: Performed By: #### E NATALIE, CBC, CMP #### [address] Monocytes/100 WBC (Bld) 6.7 % Normal . [facility] Comment on above: Performed By: #### E NATALIE, CBC, CMP #### [address] Neutrophils (Bld) [#/Vol] 7.4 10*3/uL Normal 1.8-7.7 [facility] Comment on above: Performed By: #### E NATALIE, CBC, CMP #### [place] [address] Neutrophils/100 WBC (Bld) 75.0 % Normal . [facility] Comment on above: Performed By: #### E NATALIE CBC, CMP #### [address] NRBC% 0.1 /100{WBC} Normal 0-0.5 [facility] Comment on above: Performed By: #### E NATALIE, CBC, CMP #### [address] Platelet mean volume (Bld) [Entitic vol] 9.5 fL Normal 6.3-10.7 [facility] Comment on above: Performed By: #### E NATALIE CBC, CMP #### [address] Platelets (Bld) [#/Vol] 182 10*3/uL Normal 150-450 [facility] Comment on above: Performed By: #### E NATALEI CBC, CMP #### [address] RBC (Bld) [#/Vol] 4.18 10*6/uL Normal 3.60-5.00 [facility] Comment on above: Performed By: #### E NATALIE, CBC, CMP #### [address] WBC (Bld) [#/Vol] 9.9 10*3/uL Normal 3.8-11.6 [facility] Comment on above: Performed By: #### E NATALIE, CBC, CMP #### [address] Comprehensive Metabolic Pane tommie 11-07-2024 Albumin [Mass/Vol] 3.5 g/dL Normal 3.5-5.7 [facility] Comment on above: Performed By: #### E NATALIE, CBC, CMP #### [address] Albumin/Globulin [Mass ratio] 1.3 {ratio} Normal [facility] Comment on above: Performed By: #### E NATALIE CBC, CMP #### [address] ALP [Catalytic activity/Vol] 42 U/L Normal 34-104 [facility] Comment on above: Performed By: #### E NATALIE CBC, CMP #### [facility] [address] [place] [id number] [place] ALT [Catalytic activity/Vol] 12 U/L Normal 7-52 [facility] Comment on above: Performed By: #### E NATALIE CBC, CMP #### [address] Anion gap [Moles/Vol] 11.4 mmol/L Normal 6.0-15.0 [facility] Comment on above: Performed By: #### E NATALIE CBC, CMP #### [address] AST [Catalytic activity/Vol] 12 U/L Low 13-39 [facility] Comment on above: Performed By: #### E NATALIE CBC, CMP #### [place] [address] [place] Bilirubin [Mass/Vol] 0.3 mg/dL Normal 0.3-1.0 [facility] Comment on above: Performed By: #### E NATALIE CBC, CMP #### [place] [address] [place] Calcium [Mass/Vol] 8.5 mg/dL Low 8.6-10.3 [facility] Comment on above: Performed By: #### E NATALIE CBC, CMP #### [place] [address] [place] Chloride [Moles/Vol] 106 mmol/L Normal 98-107 [facility] Comment on above: Performed By: #### E NATALIE CBC, CMP #### [place] [address] [place] CO2 [Moles/Vol] 23.4 mmol/L Normal 21.0-31.0 [facility] Comment on above: Performed By: #### E WANDA ESTRADA, CMP #### [address] Creatinine [Mass/Vol] 0.53 mg/dL Low 0.60-1.20 [facility] Comment on above: Performed By: #### E WANDA ESTRADA, CMP #### [place] [address] [place] Creatinine Clr Calc Pharmacy 143.46 Normal [facility] Comment on above: Performed By: #### E WANDA ESTRADA, CMP #### [place] [address] [place] GFR/1.73 sq M.predicted MDRD (S/P/Bld) [Vol rate/Area] mL/min/{1.73_m2} Normal [facility] Comment on above: Performed By: #### E WANDA ESTRADA, CMP #### [address] Globulin (S) [Mass/Vol] 2.6 g/dL Normal [facility] Comment on above: Performed By: #### E WANDA ESTRADA, CMP #### [address] Glucose [Mass/Vol] 75 mg/dL Normal 70-100 [facility] Comment on above: Result Comment: [facility] Glucose Reference Range is dependent on time and content of last meal. Glucose of more than 200 mg/dL in a nonstressed, ambulatory subject supports the diagnosis of Diabetes Mellitus. ADA recommended reference range Performed By: #### E WANDA ESTRADA, CMP #### [address] Potassium [Moles/Vol] 3.8 mmol/L Normal 3.5-5.1 [facility] Comment on above: Performed By: #### E WANDA ESTRADA, CMP #### [address] Protein [Mass/Vol] 6.1 g/dL Low 6.4-8.9 [facility] Comment on above: Performed By: #### E NATALIE, CBC, CMP #### [facility] [address] [place] [address] [place] Sodium [Moles/Vol] 137 mmol/L Normal 136-145 [facility] Comment on above: Performed By: #### E NATALIE, CBC, CMP #### [facility] [address] [place] [address] [place] Urea nitrogen [Mass/Vol] 11 mg/dL Normal 7-25 [facility] Comment on above: Performed By: #### E NATALIE, CBC, CMP #### [facility] [address] [place] [id number] [place] Creatinine [Mass/volume] in Serum or PlasmaOrdered By: Kelly Hough on 11-07-2024 Creatinine [Mass/Vol] Creatinine [Mass/v olume] in Serum or Plasma Low 0.60-1.20 [facility] Eosinophils Auto (Bld) [#/Vo l]Ordered By: Kelly Hough on 11-07-2024 Eosinophils (Bld) [#/Vol] Automated eosinophil count 0.0-0.45 [facility] Eosinophils/100 WBC Auto (Bl d)Ordered By: Kelly Hough on 11-07-2024 Eosinophils/100 WBC (Bld) Automated eosinophil % . [facility] Erythrocyte distribution wid th Auto (RBC) [Ratio]Ordered By: Kelly Hough on 11-07-2024 Erythrocyte distribution width (RBC) [Ratio] Erythrocyte distribution width [Ratio] by Automated count 11.9-15.3 [facility] Ferritinon 11-07-2024 Ferritin [Mass/Vol] 93.7 ng/mL Normal 11.0-306.8 [facility] Comment on above: Performed By: #### E NATALIE, CBC, CMP #### [facility] [address] [place] [id number] [place] Ferritin [Mass/volume] in Se rum or PlasmaOrdered By: Kelly Hough on 11-07-2024 Ferritin [Mass/Vol] Ferritin [Mass/volum e] in Serum or Plasma 11.0-306.8 [facility] Folateon 11-07-2024 Folate 8.1 ng/mL Normal >5.9 [facility] Comment on above: Result Comment: Breana te reference range: >5.9 ng/ml The WHO technical consultation on folate and vitamin b12 deficiencies has determined that folate concentrations less than 4 ng/ml are considered deficient. PERFORMED BY: [facility] [address] [place] [address] PATHOLOGIST [employer] TRISTEN MOSELEY M.D. Performed By: #### E NATALIE, CBC, CMP #### [facility] [address] Folate [Mass/volume] in Seru m or PlasmaOrdered By: Kelly Hough on 11-07-2024 Folate [Mass/Vol] Folate [Mass/volume] in Serum or Plasma >5.9 [facility] Comment on above: Folate reference ran ge: >5.9 ng/mlThe WHO technical consultation on folate and vitamin [id number] has determined that folate concentrations lessthan 4 ng/ml are considered deficient. Globulin Calc (S) [Mass/Vol] Ordered By: Kelly Hough on 11-07-2024 Globulin (S) [Mass/Vol] Serum globulin measurement by calculation (mass/volume) [facility] Glucose [Mass/volume] in Ser um or PlasmaOrdered By: Kelly Hough on 11-07-2024 Glucose [Mass/Vol] Glucose [Mass/volume ] in Serum or Plasma 70-100 [facility] Comment on above: ADA recommended refe rence rangeRandom Glucose Reference Range is dependent on time and content of last meal. Glucose of more than 200 mg/dL in a nonstressed, ambulatory subject supports the diagnosis of Diabetes Mellitus. Hematocrit Auto (Bld) [Volum e fraction]Ordered By: Kelly Hough on 11-07-2024 Hematocrit (Bld) [Volume fraction] Hematocrit [Volume Fraction] of Blood by Automated count Low 34.0-46.4 [facility] Hemoglobin [Mass/volume] in BloodOrdered By: Kelly Hough on 11-07-2024 Hemoglobin (Bld) [Mass/Vol] Hemoglobin [Mass/volume] in Blood Low 11.8-15.4 [facility] Iron [Mass/volume] in Serum or PlasmaOrdered By: Kelly Hough on 11-07-2024 Iron [Mass/Vol] Iron [Mass/volume] i n Serum or Plasma 50-212 [facility] Iron and TIBC Profileon 10-19 % Iron Saturation 21.4 % Normal 20-50 [facility] Comment on above: Performed By: #### E NATALIE, CBC, CMP #### [facility] [address] [place] [address] [facility] Iron [Mass/Vol] 62 ug/dL Normal 50-212 [facility] Comment on above: Performed By: #### E NATALIE, CBC, CMP #### [facility] [address] Total Iron Binding Capacity 290 ug/dL Normal 255-450 [facility] Comment on above: Performed By: #### E NATALIE, CBC, CMP #### [facility] [address] Transferrin [Mass/Vol] 207 mg/dL Normal 203-362 [facility] Comment on above: Performed By: #### E NATALIE, CBC, CMP #### [facility] [address] Leukocytes [#/volume] correc delmer for nucleated erythrocytes in Blood by Automated counOrdered By: Kelly Hough on 11-07-2024 WBC corrected for nucl RBC Auto (Bld) [#/Vol] Leukocytes [#/volume] corrected for nucleated erythrocytes in Blood by Automated coun 3.8-11.6 [facility] Lymphocytes Auto (Bld) [#/Vo l]Ordered By: Kelly Hough on 11-07-2024 Lymphocytes (Bld) [#/Vol] Lymphocytes [#/volume] in Blood by Automated count 1.00-4.8 [facility] Lymphocytes/100 WBC Auto (Bl d)Ordered By: Kelly Hough on 11-07-2024 Lymphocytes/100 WBC (Bld) Lymphocytes/100 leukocytes in Blood by Automated count . [facility] MCH Auto (RBC) [Entitic mass ]Ordered By: Kelly Hough on 11-07-2024 MCH (RBC) [Entitic mass] MCH [Entitic mass] by Automated count Low 24.7-34.3 [facility] MCHC Auto (RBC) [Mass/Vol]Or dered By: Kelly Hough on 11-07-2024 MCHC (RBC) [Mass/Vol] MCHC [Mass/volume] by Automated count Low 32.0-35.0 [facility] MCV Auto (RBC) [Entitic vol] Ordered By: Kelyl Hough on 11-07-2024 MCV (RBC) [Entitic vol] MCV [Entitic volume] by Automated count Low 80-100 [facility] Monocytes Auto (Bld) [#/Vol] Ordered By: Kelly Hough on 11-07-2024 Monocytes (Bld) [#/Vol] Automated blood monocyte count 0.0-0.8 [facility] Monocytes/100 WBC Auto (Bld) Ordered By: Kelly Hough on 11-07-2024 Monocytes/100 WBC (Bld) Automated monocyte % . [facility] Neutrophils Auto (Bld) [#/Vo l]Ordered By: Kelly Hough on 11-07-2024 Neutrophils (Bld) [#/Vol] Neutrophils [#/volume] in Blood by Automated count 1.8-7.7 [facility] Neutrophils/100 WBC Auto (Bl d)Ordered By: Kelly Hough on 11-07-2024 Neutrophils/100 WBC (Bld) Automated neutrophil % . [facility] No Panel InformationOrdered By: Kelly Hough on 11-07-2024 Estimated GFR (CKD-EPI) > 60.0 mL/Min [facility] Creatinine Clearance (Chem 143.46 [facility] Nucleated erythrocytes [Pres ence] in Blood by Automated countOrdered By: Kelly Hough on 11-07-2024 Nucleated RBC Auto Ql (Bld) Nucleated erythrocytes [Presence] in Blood by Automated count 0-0.5 [facility] Platelet mean volume Auto (B ld) [Entitic vol]Ordered By: Kelly Hough on 11-07-2024 Platelet mean volume (Bld) [Entitic vol] Platelet mean volume [Entitic volume] in Blood by Automated count 6.3-10.7 [facility] Platelets Auto (Bld) [#/Vol] Ordered By: Kelly Hough on 11-07-2024 Platelets (Bld) [#/Vol] Platelets [#/volume] in Blood by Automated count 150-450 [facility] Potassium [Moles/volume] in Serum or PlasmaOrdered By: Kelly Hough on 11-07-2024 Potassium [Moles/Vol] Potassium [Moles/v olume] in Serum or Plasma 3.5-5.1 [facility] Protein [Mass/volume] in Ser um or PlasmaOrdered By: Kelly Hough on 11-07-2024 Protein [Mass/Vol] Protein [Mass/volume ] in Serum or Plasma Low 6.4-8.9 [facility] RBC Auto (Bld) [#/Vol]Ordere d By: Kelly Hough on 11-07-2024 RBC (Bld) [#/Vol] Erythrocytes [#/volu me] in Blood by Automated count 3.60-5.00 [facility] Serum or plasma albumin/glob ulin mass ratioOrdered By: Kelly Hough on 11-07-2024 Albumin/Globulin [Mass ratio] Serum or plasma albumin/globulin mass ratio [facility] Serum or plasma anion gap de terminationOrdered By: Kelly Hough on 11-07-2024 Anion gap [Moles/Vol] Serum or plasma an ion gap determination 6.0-15.0 [facility] Serum or plasma iron binding capacity measurement (mass/volume)Ordered By: Kelly Hough on 11-07-2024 Iron binding capacity [Mass/Vol] Iron binding capacity [Mass/volume] in Serum or Plasma 255-450 [facility] Serum or plasma iron saturat ion measurement (mass fraction)Ordered By: Kelly Hough on 11-07-2024 Iron saturation [Mass fraction] Iron saturation [Mass Fraction] in Serum or Plasma 20-50 [facility] Sodium [Moles/volume] in Ser um or PlasmaOrdered By: Kelly Hough on 11-07-2024 Sodium [Moles/Vol] Sodium [Moles/volume ] in Serum or Plasma 136-145 [facility] Transferrin [Mass/volume] in Serum or PlasmaOrdered By: Kelly Hough on 11-07-2024 Transferrin [Mass/Vol] Transferrin [Mass /volume] in Serum or Plasma 203-362 [facility] Urea nitrogen [Mass/volume] in Serum or PlasmaOrdered By: Kelly France on 11-07-2024 Urea nitrogen [Mass/Vol] Urea nitrogen [Mass/volume] in Serum or Plasma 04-10 [facility] WBC Auto (Bld) [#/Vol]Ordere d By: Kelly France on 11-07-2024 WBC (Bld) [#/Vol] Leukocytes [#/volume ] in Blood by Automated count 3.8-11.6 [facility] Urinalysis macro (dipstick) panel (U)on 11-04-2024 Bilirubin, UA Negative Negative - 4(70) +++ mg/dL [facility] Blood, UA Positive Negative - 50 Hong/mcL [facility] Comment on above: moderate Clarity, UA Clear [facility] Color, UA Marylu [facility] Glucose, UA Negative Negative - 1999(110) ++++ mg/dL [facility] Interpretation and review of laboratory results Abnormal [facility] Ketones, UA Negative Negative - 160(16) ++++ mg/dL [facility] Leukocytes, UA Negative Negative - 500+++ Iqra/mcL [facility] Nitrite, UA Negative Negative - Positive [facility] pH, UA 6 5 - 9 [facility] Protein, UA Negative Negative - 1999(20) ++++ mg/dL [facility] Spec Grav, UA 1.025 1 - 1.03 [facility] Urobilinogen, UA 1.0 0.2 - 12 mg/dL [facility] IGP,APTIMA HPV,AGE GDLNon AGE GDLN ACOG TESTING Note . [facility] Comment on above: TESTS RESULT FLAG UN ITS REF RANGE LAB Clinician Provided Cytology Information Source.............Cervix Other.............. No. of containers..01 ThinPrep Vial Age Algo ACOG Diana... 30-65 FLAG LEGEND: L-Low Normal,H-High Normal,LL-Alert Low,HH-Alert High <-Panic Low,>-Panic High,A-Abnormal,AA-Critical Abnormal Performed at: 01 = [facility] [address] [id number] Doreen Payne MD, HPV APTIMA Positive Abnormal Negative [facility] Comment on above: This nucleic acid am plification test detects fourteen high- risk HPV types (16,18,31,33,35,39,45,51,52,56,58,59,66,68) without differentiation. Performed at: =[employer] [id number] Preparation Room Manager: Doreen Payne MD, Phone: [phone] Performed at: [facility] [id number] [place] [id number] Preparation Room Manager: Marcin Alarcon MD, Phone: [phone] IGP, APTIMA HPV, RFX 16/18,45 Note Abnormal . [facility] Comment on above: TESTS RESULT FLAG UN ITS REF RANGE LAB DIAGNOSIS: [A] 02 EPITHELIAL CELL ABNORMALITY. LOW GRADE SQUAMOUS INTRAEPITHELIAL LESION (LSIL). Recommendation: [A] 02 Suggest follow up as clinically appropriate. Specimen adequacy: 02 Satisfactory for evaluation. No endocervical component is identified. Performed by: 02 Michael Streeter, [employer] [place] [employer] Worker (ASCP) Electronically si... 02 Winter Santo MD, Pathologist . 02 Pathologist ICD10: 02 R87.612 Note: Note 03 The Pap smear is a screening test designed to aid in the detection of premalignant and malignant conditions of the uterine cervix. It is not a diagnostic procedure and should not be used as the sole means of detecting cervical cancer. Both false-positive and false-negative reports do occur. Test Methodology: Note 03 This liquid based ThinPrep(R) pap test was screened with the use of an image guided system. HPV Genotype Reflex Note 02 Criteria not met, HPV Genotype not performed. FLAG LEGEND: L-Low Normal,H-High Normal,LL-Alert Low,HH-Alert High <-Panic Low,>-Panic High,A-Abnormal,AA-Critical Abnormal Performed at: 02 [facility] [id number] [place] [phone] Marcin Alarcon MD, 03 WB [facility] [address] [id number] Doreen Payne MD, Interpretation and review of laboratory results Abnormal [facility] Urinalysis macro (dipstick) panel (U)on 10-14-2024 Bilirubin, UA Negative Negative - 4(70) +++ mg/dL [facility] Blood, UA Positive Negative - 50 Hong/mcL [facility] Clarity, UA Clear [facility] Color, UA Yellow [facility] Glucose, UA Negative Negative - 2000(110) ++++ mg/dL [facility] Interpretation and review of laboratory results Abnormal [facility] Ketones, UA Negative Negative - 160(16) ++++ mg/dL [facility] Leukocytes, UA Negative Negative - 500+++ Iqra/mcL [facility] Nitrite, UA Negative Negative - Positive [facility] pH, UA 7 5 - 9 [facility] Protein, UA Negative Negative - 2000(20) ++++ mg/dL [facility] Spec Grav, UA 1.025 1 - 1.03 [facility] Urobilinogen, UA 1.0 0.2 - 12 mg/dL [facility] ALL CBC WITH AUTO DIFFon BASOPHILS ABSOLUTE AUTO 0 [facility] Basophils/100 WBC (Bld) 0.1 % Low 0.2 - 2.0 % [facility] Eosinophils/100 WBC (Bld) 1.4 % 0.9 - 7.0 % [facility] Erythrocyte distribution width (RBC) [Ratio] 13.6 % 11.0 - 15.0 % [facility] Hematocrit (Bld) [Volume fraction] 34.1 % Low 36.0 - 48.0 % [facility] Hemoglobin (Bld) [Mass/Vol] 10.5 g/dL Low 12.0 - 16.0 g/dL [facility] IMMATURE GRANULOCYTES ABS AUTO 0.03 [facility] Immature granulocytes/100 WBC (Bld) 0.4 % 0.0 - 0.5 % [facility] Interpretation and review of laboratory results Abnormal [facility] LYMPHOCYTES ABSOLUTE AUTO 1.3 [facility] Lymphocytes/100 WBC (Bld) 18.3 % Low 20.5 - 60.0 % [facility] MCH (RBC) [Entitic mass] 23 pg Low 26.7 - 34.0 pg [facility] MCHC (RBC) [Mass/Vol] 30.8 g/dL 29.9 - 35.2 g/dL [facility] MCV (RBC) [Entitic vol] 74.8 fL Low 81.0 - 99.0 fL [facility] MONOCYTES ABSOLUTE AUTO 0.5 [facility] Monocytes/100 WBC (Bld) 6.3 % 1.7 - 12.0 % [facility] NEUTROPHILS ABSOLUTE AUTO 5.3 [facility] Neutrophils/100 WBC (Bld) 73.5 % 43.0 - 75.0 % [facility] Platelet mean volume (Bld) [Entitic vol] 11.1 fL 9.5 - 13.5 fL [facility] TBH EO # 0.1 [facility] PLT 230 [facility] RBC 4.56 [facility] TB WBC 7.2 [facility] Urinalysis macro (dipstick) panel (U)on 09-11-2024 Bilirubin, UA Negative Negative - 4(70) +++ mg/dL [facility] Blood, UA Positive Negative - 50 Hong/mcL [facility] Comment on above: trace Clarity, UA Clear [facility] Color, UA Yellow [facility] Glucose, UA Negative Negative - 1999(110) ++++ mg/dL [facility] Interpretation and review of laboratory results Abnormal [facility] Ketones, UA Negative Negative - 160(16) ++++ mg/dL [facility] Leukocytes, UA Trace Negative - 500+++ Iqra/mcL [facility] Nitrite, UA Negative Negative - Positive [facility] pH, UA 7 5 - 9 [facility] Protein, UA Negative Negative - 1999(20) ++++ mg/dL [facility] Spec Grav, UA 1.01 1 - 1.03 [facility] Urobilinogen, UA 0.2 0.2 - 12 mg/dL [facility] Urine Cultureon 09-11-2024 Bacteria identified Cx Nom (U) >100,000 colonies/ml mixed bacterial skin contaminants 2 Days PERFORMED BY: [place] [address] PATHOLOGIST [employer] MANAGER TRISTEN MOSELEY M.D. Normal [facility] Comment on above: Performed By: #### E NATALIE, CBC, CMP #### [facility] [address] [place] [address] Urine cultureOrdered By: David Pendleton on 09-11-2024 Bacteria identified Cx Nom (U) Urine culture [facility] HCG ( test) Ql (U)o n 08-26-2024 Interpretation and review of laboratory results Abnormal [facility] Preg Test, Ur Positive Negative [facility] Urinalysis macro (dipstick) panel (U)on 08-26-2024 Bilirubin, UA Negative Negative - 4(70) +++ mg/dL [facility] Blood, UA Negative Negative - 50 Hong/mcL [facility] Clarity, UA Clear [facility] Color, UA Yellow [facility] Glucose, UA Negative Negative - 1999(110) ++++ mg/dL [facility] Interpretation and review of laboratory results Abnormal [facility] Ketones, UA Positive Negative - 160(16) ++++ mg/dL [facility] Leukocytes, UA Negative Negative - 500+++ Iqra/mcL [facility] Nitrite, UA Negative Negative - Positive [facility] pH, UA 7 5 - 9 [facility] Protein, UA Negative Negative - 1999(20) ++++ mg/dL [facility] Spec Grav, UA 1.015 1 - 1.03 [facility] Urobilinogen, UA 1.0 0.2 - 12 mg/dL [facility] ECG 12 lead ECGon 08-07-2024 ECG 12 lead ECG [place] [id number] Electrocardiograph Report Signed Patient: Leandra Fonseca MR#: [id number] : 1990 Acct:[id number] Age/Sex: 34 / F ADM Date: 08/06/24 Loc: Room: [address] [place] [address] Type: ADM IN Attending Dr: Julián Naqvi [...] by 30 bpm Confirmed by Brock Rowe ([id number]) on 08/07/2024 5:03:20 PM Referred By: Electronically Signed By: Brock Rowe Transcribed By: MUS Signed By Brock Rowe MD 08/07/24 1703 Normal [facility] US OB transvaginalon 024 US OB transvaginal [address] [address] Ultrasound Report Signed Patient: Leandra Fonseca MR#: [id number] : 1990 Acct:[id number] Age/Sex: 34 / F ADM Date: 08/06/24 Loc: Room: 3V9162-8 Type: ADM IN Attending Dr: Julián Naqvi MD Ordering Provider: Julián Naqvi MD; TAM TRACY MD Date of Service: 08/07/24 US/US OB <= 14 weeks fetus: dating and anatomy ([id number]) US/US OB transvaginal: . Copies to: MD [...] Michell Miller M.D.08/07/2024 6:32 PM Dictation Location: [place] [address] Tech: Tena Heather Transcribed By: CHRISTINE 08/07/241831 Dictated By: Michell Miller MD 08/07/241824 Signed By: 08/07/241831 Normal [facility] Alanine aminotransferase [En zymatic activity/volume] in Serum or PlasmaOrdered By: Marvin Serrano on 08-06-2024 ALT [Catalytic activity/Vol] Alanine aminotransferase [Enzymatic activity/volume] in Serum or Plasma 7-52 [facility] Albumin [Mass/volume] in Ser um or Plasma by Bromocresol green (BCG) dye binding methoOrdered By: Marvin Serrano on 08-06-2024 Albumin BCG dye [Mass/Vol] Albumin [Mass/volume] in Serum or Plasma by Bromocresol green (BCG) dye binding metho 3.5-5.7 [facility] Alkaline phosphatase [Enzyma tic activity/volume] in Serum or PlasmaOrdered By: Marvin Serrano on 08-06-2024 ALP [Catalytic activity/Vol] Alkaline phosphatase [Enzymatic activity/volume] in Serum or Plasma 34-104 [facility] Amphetamine Screen Ql (U)Ord ered By: Marvin Serrano on 08-06-2024 Amphetamines Ql (U) Amphetamines screen Negativ e [facility] Appearance of UrineOrdered B y: Marvin Serrano on 08-06-2024 Appearance (U) Urine appearance Clear [facility] Aspartate aminotransferase [ Enzymatic activity/volume] in Serum or PlasmaOrdered By: Marvin Serrano on 08-06-2024 AST [Catalytic activity/Vol] Aspartate aminotransferase [Enzymatic activity/volume] in Serum or Plasma Low 13-39 [facility] Bacteria [Presence] in Urine by AutomatedOrdered By: Marvin Serrano on 08-06-2024 Bacteria Auto Ql (U) Bacteria [Presence] in Urine by Automated None Seen [facility] Barbiturates [Presence] in U rine by Screen methodOrdered By: Marvin Serrano on 08-06-2024 Barbiturates Screen Ql (U) Barbiturates [Presence] in Urine by Screen method Negative [facility] Basophils Auto (Bld) [#/Vol] Ordered By: Marvin Serrano on 08-06-2024 Basophils (Bld) [#/Vol] Automated basophil count 0.0-0.2 [facility] Basophils/100 WBC Auto (Bld) Ordered By: Marvin Serrano on 08-06-2024 Basophils/100 WBC (Bld) Automated basophil % . [facility] Benzodiazepines Screen Ql (U )Ordered By: Marvin Serrano on 08-06-2024 Benzodiazepines Ql (U) Benzodiazepines [ Presence] in Urine by Screen method Negative [facility] Benzoylecgonine [Presence] i n Urine by Screen methodOrdered By: Marvin Serrano on 08-06-2024 Benzoylecgonine Screen Ql (U) Benzoylecgonine [Presence] in Urine by Screen method Negative [facility] Bilirubin Test strip Ql (U)O rdered By: Marvin Serrano on 08-06-2024 Bilirubin Ql (U) Bilirubin.total [Pre sence] in Urine by Test strip Negative [facility] Bilirubin.total [Mass/volume ] in Serum or PlasmaOrdered By: Marvin Serrano on 08-06-2024 Bilirubin [Mass/Vol] Bilirubin.total [Mass/volume] in Serum or Plasma 0.3-1.0 [facility] Calcium [Mass/volume] in Ser um or PlasmaOrdered By: Marvin Serrano on 08-06-2024 Calcium [Mass/Vol] Calcium [Mass/volume ] in Serum or Plasma 8.6-10.3 [facility] Cannabinoids [Presence] in U rine by Screen methodOrdered By: Marvin Serrano on 08-06-2024 Cannabinoids Screen Ql (U) Cannabinoids [Presence] in Urine by Screen method Negative [facility] Comment on above: These are unconfirme [...] l [Moles/volume] in Serum or Plasma 21.0-31.0 [facility] Chloride [Moles/volume] in S salas or PlasmaOrdered By: Marvin Serrano on 08-06-2024 Chloride [Moles/Vol] Chloride [Moles/vol ume] in Serum or Plasma 98-107 [facility] Choriogonadotropin.beta subu nit [Units/volume] in Serum or PlasmaOrdered By: Marvin Serrano on 08-06-2024 HCG.beta subunit Qn Choriogonadotropin.b eta subunit [Units/volume] in Serum or Plasma [facility] Comment on above: Approximate Approxim ate hCG Gestational Age Range (mIU/ml) (weeks)0.2-1 5-50 1-2 50-500 2-3 100-5,000 3-4 500-10,000 4-5 1,000-50,000 5-6 10,000-100,000 6-8 15,000-200,000 8-12 10,000-100,000 Color Auto (U)Ordered By: Dane Serrano on 08-06-2024 Color (U) Color of Urine by Auto Yellow Fi [facility] Complete Blood Count Auto Di ffon 08-06-2024 Basophils (Bld) [#/Vol] 0.1 10*3/uL Normal 0.0-0.2 [facility] Comment on above: Result Comment: PERF ORMED BY: [place] [address] PATHOLOGIST [employer] MANAGER TRISTEN MOSELEY M.D. Performed By: #### E NATALIE, CBC, CMP #### [facility] [address] [place] [address] [place] Basophils/100 WBC (Bld) 0.7 % Normal . [facility] Comment on above: Performed By: #### E NATALIE, CBC, CMP #### [facility] [address] [place] [id number] [place] Eosinophils (Bld) [#/Vol] 0.1 10*3/uL Normal 0.0-0.45 [facility] Comment on above: Performed By: #### E NATALIE, CBC, CMP #### [address] Eosinophils/100 WBC (Bld) 0.8 % Normal . [facility] Comment on above: Performed By: #### E NATALIE, CBC, CMP #### [address] Erythrocyte distribution width (RBC) [Ratio] 14.0 % Normal 11.9-15.3 [facility] Comment on above: Performed By: #### E NATALIE, CBC, CMP #### [address] Hematocrit (Bld) [Volume fraction] 33.2 % Low 34.0-46.4 [facility] Comment on above: Performed By: #### E NATALIE, CBC, CMP #### [address] Hemoglobin (Bld) [Mass/Vol] 10.5 g/dL Low 11.8-15.4 [facility] Comment on above: Performed By: #### E NATALIE, CBC, CMP #### [address] Lymphocytes (Bld) [#/Vol] 1.0 10*3/uL Normal 1.00-4.8 [facility] Comment on above: Performed By: #### E NATALIE, CBC, CMP #### [address] Lymphocytes/100 WBC (Bld) 12.7 % Normal . [facility] Comment on above: Performed By: #### E NATALIE, CBC, CMP #### [address] MCH (RBC) [Entitic mass] 23.0 pg Low 24.7-34.3 [facility] Comment on above: Performed By: #### E NATALIE, CBC, CMP #### [address] MCV (RBC) [Entitic vol] 73.0 fL Low 80-100 [facility] Comment on above: Performed By: #### E NATALIE, CBC, CMP #### [address] Mean Corpuscular HGB Conc 31.5 g/dL Low 32.0-35.0 [facility] Comment on above: Performed By: #### E NATALIE, CBC, CMP #### [address] Monocytes (Bld) [#/Vol] 0.5 10*3/uL Normal 0.0-0.8 [facility] Comment on above: Performed By: #### E NATALIE, CBC, CMP #### [address] Monocytes/100 WBC (Bld) 17.93 % Normal 0.00-20.00 [facility] Comment on above: Performed By: #### E NATALIE, CBC, CMP #### [address] Monocytes/100 WBC (Bld) 6.8 % Normal . [facility] Comment on above: Performed By: #### E NATALIE, CBC, CMP #### [address] Neutrophils (Bld) [#/Vol] 6.2 10*3/uL Normal 1.8-7.7 [facility] Comment on above: Performed By: #### E NATALIE, CBC, CMP #### [address] Neutrophils/100 WBC (Bld) 79.0 % Normal . [facility] Comment on above: Performed By: #### E NATALIE, CBC, CMP #### [address] NRBC% 0.0 /100{WBC} Normal 0-0.5 [facility] Comment on above: Performed By: #### E NATALIE, CBC, CMP #### [address] Platelet mean volume (Bld) [Entitic vol] 9.3 fL Normal 6.3-10.7 [facility] Comment on above: Performed By: #### E NATALIE CBC, CMP #### [address] Platelets (Bld) [#/Vol] 220 10*3/uL Normal 150-450 [facility] Comment on above: Performed By: #### E NATALIE CBC, CMP #### [address] RBC (Bld) [#/Vol] 4.55 10*6/uL Normal 3.60-5.00 [facility] Comment on above: Performed By: #### E NATALIE CBC, CMP #### [address] WBC (Bld) [#/Vol] 7.9 10*3/uL Normal 3.8-11.6 [facility] Comment on above: Performed By: #### E NATALIE CBC, CMP #### [address] Comprehensive Metabolic Pane tommie 08-06-2024 Albumin [Mass/Vol] 4.0 g/dL Normal 3.5-5.7 [facility] Comment on above: Performed By: #### E NATALIE CBC, CMP #### [address] Albumin/Globulin [Mass ratio] 1.3 {ratio} Normal [facility] Comment on above: Performed By: #### E NATALIE CBC, CMP #### [address] ALP [Catalytic activity/Vol] 44 U/L Normal 34-104 [facility] Comment on above: Performed By: #### E NATALIE, CBC, CMP #### [address] ALT [Catalytic activity/Vol] 7 U/L Normal 7-52 [facility] Comment on above: Performed By: #### E NATALIE, CBC, CMP #### [facility] [address] Anion gap [Moles/Vol] 11.0 mmol/L Normal 6.0-15.0 [facility] Comment on above: Performed By: #### E NATALIE, CBC, CMP #### [address] AST [Catalytic activity/Vol] 11 U/L Low 13-39 [facility] Comment on above: Performed By: #### E NATALIE, CBC, CMP #### [address] Bilirubin [Mass/Vol] 0.6 mg/dL Normal 0.3-1.0 [facility] Comment on above: Performed By: #### E NATALIE, CBC, CMP #### [address] Calcium [Mass/Vol] 9.0 mg/dL Normal 8.6-10.3 [facility] Comment on above: Performed By: #### E NATALIE CBC, CMP #### [place] [address] [place] Chloride [Moles/Vol] 107 mmol/L Normal 98-107 [facility] Comment on above: Performed By: #### E NATALIE, CBC, CMP #### [address] CO2 [Moles/Vol] 22.7 mmol/L Normal 21.0-31.0 [facility] Comment on above: Performed By: #### E NATALIE, CBC, CMP #### [place] [address] [place] Creatinine [Mass/Vol] 0.64 mg/dL Normal 0.60-1.20 [facility] Comment on above: Performed By: #### E NATALIE, CBC, CMP #### [place] [address] [place] Creatinine Clr Calc Pharmacy 119.09 Normal [facility] Comment on above: Result Comment: PERF ORMED BY: [place] [address] PATHOLOGIST [employer] MANAGER TRISTEN MOSELEY M.D. Performed By: #### E WANDA ESTRADA, CMP #### [address] GFR/1.73 sq M.predicted MDRD (S/P/Bld) [Vol rate/Area] mL/min/{1.73_m2} Normal [facility] Comment on above: Performed By: #### E WANDA ESTRADA, CMP #### [address] Globulin (S) [Mass/Vol] 3.0 g/dL Normal [facility] Comment on above: Performed By: #### E WANDA ESTRADA, CMP #### [address] Glucose [Mass/Vol] 98 mg/dL Normal 70-100 [facility] Comment on above: Result Comment: [facility] Glucose Reference Range is dependent on time and content of last meal. Glucose of more than 200 mg/dL in a nonstressed, ambulatory subject supports the diagnosis of Diabetes Mellitus. ADA recommended reference range Performed By: #### E WANDA ESTRADA, CMP #### [address] Potassium [Moles/Vol] 3.7 mmol/L Normal 3.5-5.1 [facility] Comment on above: Performed By: #### E WANDA ESTRADA, CMP #### [address] Protein [Mass/Vol] 7.0 g/dL Normal 6.4-8.9 [facility] Comment on above: Performed By: #### E WANDA ESTRADA, CMP #### [address] Sodium [Moles/Vol] 137 mmol/L Normal 136-145 [facility] Comment on above: Performed By: #### E WANDA ESTRADA, CMP #### [place] [address] [place] Urea nitrogen [Mass/Vol] 7 mg/dL Normal 7-25 [facility] Comment on above: Performed By: #### E NATALIE, CBC, CMP #### [facility] [address] Creatinine [Mass/volume] in Serum or PlasmaOrdered By: Marvin Serrano on 08-06-2024 Creatinine [Mass/Vol] Creatinine [Mass/v olume] in Serum or Plasma 0.60-1.20 [facility] Dipstick and Microscopicon 1 10-06-2023 Appearance (U) Clear Normal Clear [facility] Comment on above: Order Comment: Name Collection Type:: Clean-Voided Midstream Performed By: #### A DDONUAPLUS, UHCG, URDS #### [address] Bacteria,Urine Rare Normal None Seen [facility] Comment on above: Order Comment: Name Collection Type:: Clean-Voided Midstream Performed By: #### A DDONUAPLUS, UHCG, URDS #### [place] [address] [place] Bilirubin,Urine Negative Normal Negative [facility] Comment on above: Order Comment: Name Collection Type:: Clean-Voided Midstream Performed By: #### A DDONUAPLUS, UHCG, URDS #### [place] [id number] [facility] Color (U) Light-Yellow Normal Yellow [facility] Comment on above: Order Comment: Name Collection Type:: Clean-Voided Midstream Performed By: #### A DDONUAPLUS, UHCG, URDS #### [place] [address] [place] Glucose Ql (U) Normal Normal Normal [facility] Comment on above: Order Comment: Name Collection Type:: Clean-Voided Midstream Performed By: #### A DDONUAPLUS, UHCG, URDS #### [place] [id number] [place] Hyaline Casts,Urine None Normal 0-8 [facility] Comment on above: Order Comment: Name Collection Type:: Clean-Voided Midstream Performed By: #### A DDONUAPLUS, UHCG, URDS #### [address] Ketones Ql (U) 3+ High Negative [facility] Comment on above: Order Comment: Name Collection Type:: Clean-Voided Midstream Performed By: #### A DDONUAPLUS, UHCG, URDS #### [address] Leukocyte esterase Test strip Ql (U) Negative Normal Negative [facility] Comment on above: Order Comment: Name Collection Type:: Clean-Voided Midstream Performed By: #### A DDONUAPLUS, UHCG, URDS #### [address] Mucus,Urine Rare Normal [facility] Comment on above: Order Comment: Name Collection Type:: Clean-Voided Midstream Performed By: #### A DDONUAPLUS, UHCG, URDS #### [place] [address] [place] Nitrite,Urine Negative Normal Negative [facility] Comment on above: Order Comment: Name Collection Type:: Clean-Voided Midstream Performed By: #### A DDONUAPLUS, UHCG, URDS #### [place] [address] [place] Occult Blood,Urine Trace High Negative [facility] Comment on above: Order Comment: Name Collection Type:: Clean-Voided Midstream Performed By: #### A DDONUAPLUS, UHCG, URDS #### [place] [address] [place] pH (U) 7.0 [pH] Normal 5.0-9.0 [facility] Comment on above: Order Comment: Name Collection Type:: Clean-Voided Midstream Performed By: #### A DDONUAPLUS, UHCG, URDS #### [place], [place] [address] [place] Protein,Urine Negative Normal Negative [facility] Comment on above: Order Comment: Name Collection Type:: Clean-Voided Midstream Performed By: #### A DDONUAPLUS, UHCG, URDS #### [address] RBC,Urine 1 [HPF] Normal 0-4 [facility] Comment on above: Order Comment: Name Collection Type:: Clean-Voided Midstream Performed By: #### A DDONUAPLUS, UHCG, URDS #### [address] Specificy [place],Urine 1.016 Normal 1.001-1.03 0 [facility] Comment on above: Order Comment: Name Collection Type:: Clean-Voided Midstream Performed By: #### A DDONUAPLUS, UHCG, URDS #### [address] Squamous Epithelial Cell,Urine 5 [HPF] High 0-2 [facility] Comment on above: Order Comment: Name Collection Type:: Clean-Voided Midstream Performed By: #### A DDONUAPLUS, UHCG, URDS #### [address] Urobilinogen,Urine Normal Normal Normal [facility] Comment on above: Order Comment: Name Collection Type:: Clean-Voided Midstream Performed By: #### A DDONUAPLUS, UHCG, URDS #### [address] WBC,Urine 1 [HPF] Normal 0-4 [facility] Comment on above: Order Comment: Name Collection Type:: Clean-Voided Midstream Performed By: #### A DDONUAPLUS, UHCG, URDS #### [place] [address] [place] Drug Screen,Urineon 08-06-20 24 Amphetamine Screen,Urine Negative Normal Negative [facility] Comment on above: Performed By: #### A DDONUAPLUS, UHCG, URDS #### [address] Barbiturate Screen,Urine Negative Normal Negative [facility] Comment on above: Performed By: #### A DDONUAPLUS, UHCG, URDS #### [address] Benzodiazepines Screen,Urine Negative Normal Negative [facility] Comment on above: Performed By: #### A DDONUAPLUS, UHCG, URDS #### [address] Cannabinoid Screen,Urine Negative Normal Negative [facility] Comment on above: Result Comment: Thes e are unconfirmed results and should not be used for legal purposes. Drug Cut-Off Concentration: AMPH 1000 ng/mL BEKA 200 ng/mL CALDERON 200 ng/mL COCM 300 ng/mL OP 300 ng/mL PCP 25 ng/mL THC 20 ng/mL PERFORMED BY: [place] [address] PATHOLOGIST [employer] TRISTEN MOSELEY M.D. Performed By: #### A DDONUAPLUS, UHCG, URDS #### [address] Cocaine Screen,Urine Negative Normal Negative [facility] Comment on above: Performed By: #### A DDONUAPLUS, UHCG, URDS #### [address] Opiate Screen,Urine Negative Normal Negative [facility] Comment on above: Performed By: #### A DDONUAPLUS, UHCG, URDS #### [place] [address] [place] Phencyclidine Screen,Urine Negative Normal Negative [facility] Comment on above: Performed By: #### A DDONUAPLUS, UHCG, URDS #### [place] [address] [place] Eosinophils Auto (Bld) [#/Vo l]Ordered By: Marvin Serrano on 08-06-2024 Eosinophils (Bld) [#/Vol] Automated eosinophil count 0.0-0.45 [facility] Eosinophils/100 WBC Auto (Bl d)Ordered By: Marvin Serrano on 08-06-2024 Eosinophils/100 WBC (Bld) Automated eosinophil % . [facility] Epithelial cells.squamous [# /area] in Urine sediment by Automated countOrdered By: Marvin Serrano on 08-06-2024 Epithelial cells.squamous Auto (Urine sed) [#/Area] Epithelial cells.squamous [#/area] in Urine sediment by Automated count High 0-2 [facility] Erythrocyte distribution wid th Auto (RBC) [Ratio]Ordered By: Marvin Serrano on 08-06-2024 Erythrocyte distribution width (RBC) [Ratio] Erythrocyte distribution width [Ratio] by Automated count 11.9-15.3 [facility] Erythrocytes [#/area] in Uri ne sediment by Automated countOrdered By: Marvin Serrano on 08-06-2024 RBC Auto (Urine sed) [#/Area] Erythrocytes [#/area] in Urine sediment by Automated count 0-4 [facility] Ethanol [Mass/volume] in Ser um or PlasmaOrdered By: Marvin Serrano on 08-06-2024 Ethanol [Mass/Vol] Ethanol [Mass/volume ] in Serum or Plasma [facility] Comment on above: Test not performed Ethyl Alcohol Profileon 07-19 Ethanol [Mass/Vol] mg/dL Normal [facility] Comment on above: Performed By: #### E NATALIE, CBC, CMP #### [facility] [address] [place] [address] Percent Ethanol Not performed Normal [facility] Comment on above: Result Comment: PERF ORMED BY: [place] [address] PATHOLOGIST [employer] TRISTEN MOSELEY M.D. Performed By: #### E NATALIE, CBC, CMP #### [facility] [address] [place] [address] Globulin Calc (S) [Mass/Vol] Ordered By: Marvin Serrano on 08-06-2024 Globulin (S) [Mass/Vol] Serum globulin measurement by calculation (mass/volume) [facility] Glucose [Mass/volume] in Ser um or PlasmaOrdered By: Marvin Serrano on 08-06-2024 Glucose [Mass/Vol] Glucose [Mass/volume ] in Serum or Plasma 70-100 [facility] Comment on above: ADA recommended refe [...] [Mass/volume] in Urine by Test strip Normal [facility] HCG ( test) IA.rapi d Ql (U)Ordered By: Marvin Serrano on 08-06-2024 HCG ( test) Ql (U) Urine human chorionic gonadotropin (hCG) detection by immunoassay [facility] HCG,Quantitativeon HCG,Quantitative 25983.00 m[iU]/mL Normal [facility] Comment on above: Result Comment: Appr oximate Approximate hCG Gestational Age Range (mIU/ml) (weeks) 0.2-1 5-50 1-2 50-500 2-3 100-5,000 3-4 500-10,000 4-5 1,000-50,000 5-6 10,000-100,000 6-8 15,000-200,000 8-12 10,000-100,000 PERFORMED BY: [place] [address] PATHOLOGIST [employer] TRISTEN MOSELEY M.D. Performed By: #### E NATALIE, CBC, CMP #### [facility] [address] [place] [address] HCG,Urineon 08-06-2024 Beta HCG ( test) Ql (U) Positive [facility] Comment on above: Order Comment: Name Collection Type:: Clean-Voided Midstream Result Comment: PERF ORMED BY: [place] [address] PATHOLOGIST [employer] TRISTEN MOSELEY M.D. Performed By: #### A DDONUAPLUS, UHCG, URDS #### [facility] [address] [id number] [facility] Hematocrit Auto (Bld) [Volum e fraction]Ordered By: Marvin Serrano on 08-06-2024 Hematocrit (Bld) [Volume fraction] Hematocrit [Volume Fraction] of Blood by Automated count Low 34.0-46.4 [facility] Hemoglobin Test strip Ql (U) Ordered By: Marvin Serrano on 08-06-2024 Hemoglobin Ql (U) Hemoglobin [Presence ] in Urine by Test strip High Negative [facility] Hemoglobin [Mass/volume] in BloodOrdered By: Marvin Serrano on 08-06-2024 Hemoglobin (Bld) [Mass/Vol] Hemoglobin [Mass/volume] in Blood Low 11.8-15.4 [facility] Hyaline casts [#/area] in Ur ine sediment by Automated countOrdered By: Marvin Serrano on 08-06-2024 Hyaline casts Auto (Urine sed) [#/Area] Hyaline casts [#/area] in Urine sediment by Automated count 0-8 [facility] Ketones Test strip Ql (U)Ord ered By: Marvin Serrano on 08-06-2024 Ketones Ql (U) Ketones [Presence] i n Urine by Test strip High Negative [facility] Leukocyte esterase [Presence ] in Urine by Test stripOrdered By: Marvin Serrano on 08-06-2024 Leukocyte esterase Test strip Ql (U) Leukocyte esterase [Presence] in Urine by Test strip Negative [facility] Leukocytes [#/area] in Urine sediment by Automated countOrdered By: Marvin Serrano on 08-06-2024 WBC Auto (Urine sed) [#/Area] Leukocytes [#/area] in Urine sediment by Automated count 0-4 [facility] Leukocytes [#/volume] correc delmer for nucleated erythrocytes in Blood by Automated counOrdered By: Marvin Serrano on 08-06-2024 WBC corrected for nucl RBC Auto (Bld) [#/Vol] Leukocytes [#/volume] corrected for nucleated erythrocytes in Blood by Automated coun 3.8-11.6 [facility] Lipid Panelon 08-06-2024 Cholesterol [Mass/Vol] 128 mg/dL Low 140-200 [facility] Comment on above: Order Comment: Comme nt use ER blood Result Comment: Chol less than 200 mg/dl low risk Chol 201-239 mg/dl borderline risk Chol 240 mg/dl and greater high risk Performed By: #### E NATALIE CBC, CMP #### [facility] [address] [place] [address] [place] Cholesterol in HDL [Mass/Vol] 59 mg/dL Normal 23-92 [facility] Comment on above: Order Comment: Comme nt use ER blood Result Comment: HDL CHOL ATP-III CLASSIFICATION Cardiovascular Risk HDL > or equal to 60 mg/dL LOW HDL < 40 mg/dL HIGH Performed By: #### E NATALIE CBC, CMP #### [facility] [address] [place] [address] [place] Cholesterol.total/Chol esterol in HDL [Mass ratio] 2.2 {ratio} Normal <5.0 [facility] Comment on above: Order Comment: Comme nt use ER blood Performed By: #### E NATALIE CBC, CMP #### [facility] [address] LDL Cholesterol,Calculated 63 mg/dL Normal 0-100 [facility] Comment on above: Order Comment: Comme nt use ER blood Result Comment: LDL ATP III CLASSIFICATION LDL less than 100 mg/dL Optimal LDL 100-129 mg/dL Near or above optimal LDL 130-159 mg/dL Borderline high LDL 160-189 mg/dL High LDL greater than 189 mg/dL Very high Performed By: #### E NATALIE CBC, CMP #### [facility] [address] [id number] [place] Triglyceride w/Reflex 29 mg/dL Normal 0-149 [facility] Comment on above: Order Comment: Comme nt use ER blood Result Comment: TRIG ATP III CLASSIFICATION TRIG less than 150 mg/dL Normal TRIG 150-199 mg/dL Borderline high TRIG 200-500 mg/dL High TRIG greater than 500 mg/dL Very high Standard traceable to the Center for Disease Conrtrol and Prevention (CDC) test method. Performed By: #### E NATALIE, CBC, CMP #### [facility] [address] [id number] [facility] VLDL CHOLESTEROL 5 mg/dL Normal [facility] Comment on above: Order Comment: Comme nt use ER blood Performed By: #### E NATALIE CBC, CMP #### [facility] [address] Lymphocytes Auto (Bld) [#/Vo l]Ordered By: Marvin Serrano on 08-06-2024 Lymphocytes (Bld) [#/Vol] Lymphocytes [#/volume] in Blood by Automated count 1.00-4.8 [facility] Lymphocytes/100 WBC Auto (Bl d)Ordered By: Marvin Serrano on 08-06-2024 Lymphocytes/100 WBC (Bld) Lymphocytes/100 leukocytes in Blood by Automated count . [facility] MCH Auto (RBC) [Entitic mass ]Ordered By: Marvin Serrano on 08-06-2024 MCH (RBC) [Entitic mass] MCH [Entitic mass] by Automated count Low 24.7-34.3 [facility] MCHC Auto (RBC) [Mass/Vol]Or dered By: Marvin Serrano on 08-06-2024 MCHC (RBC) [Mass/Vol] MCHC [Mass/volume] by Automated count Low 32.0-35.0 [facility] MCV Auto (RBC) [Entitic vol] Ordered By: Marvin Serrano on 08-06-2024 MCV (RBC) [Entitic vol] MCV [Entitic volume] by Automated count Low 80-100 [facility] Monocyte distribution width [Entitic volume] in Blood by AutomatedOrdered By: Marvin Serrano on 08-06-2024 Monocyte distribution width Auto (Bld) [Entitic vol] Monocyte distribution width [Entitic volume] in Blood by Automated 0.00-20.00 [facility] Monocytes Auto (Bld) [#/Vol] Ordered By: Marvin Serrano on 08-06-2024 Monocytes (Bld) [#/Vol] Automated blood monocyte count 0.0-0.8 [facility] Monocytes/100 WBC Auto (Bld) Ordered By: Marvin Serrano on 08-06-2024 Monocytes/100 WBC (Bld) Automated monocyte % . [facility] Mucus [Presence] in Urine by AutomatedOrdered By: Marvin Serrano on 08-06-2024 Mucus Auto Ql (U) Mucus [Presence] in Urine by Automated [facility] Neutrophils Auto (Bld) [#/Vo l]Ordered By: Marvin Serrano on 08-06-2024 Neutrophils (Bld) [#/Vol] Neutrophils [#/volume] in Blood by Automated count 1.8-7.7 [facility] Neutrophils/100 WBC Auto (Bl d)Ordered By: Marvin Serrano on 08-06-2024 Neutrophils/100 WBC (Bld) Automated neutrophil % . [facility] Nitrite Test strip Ql (U)Ord ered By: Marvin Serrano on 08-06-2024 Nitrite Ql (U) Nitrite [Presence] i n Urine by Test strip Negative [facility] No Panel InformationOrdered By: Marvin Serrano on 08-06-2024 Estimated GFR (CKD-EPI) > 60.0 mL/Min [facility] Creatinine Clearance (Chem 119.09 [facility] Nucleated erythrocytes [Pres ence] in Blood by Automated countOrdered By: Marvin Serrano on 08-06-2024 Nucleated RBC Auto Ql (Bld) Nucleated erythrocytes [Presence] in Blood by Automated count 0-0.5 [facility] Opiates [Presence] in Urine by Screen methodOrdered By: Marvin Serrano on 08-06-2024 Opiates Screen Ql (U) Opiates [Presence] in Urine by Screen method Negative [facility] Phencyclidine Screen Ql (U)O rdered By: Marvin Serrano on 08-06-2024 Phencyclidine Ql (U) Phencyclidine [Pres ence] in Urine by Screen method Negative [facility] Platelet mean volume Auto (B ld) [Entitic vol]Ordered By: Marvin Serrano on 08-06-2024 Platelet mean volume (Bld) [Entitic vol] Platelet mean volume [Entitic volume] in Blood by Automated count 6.3-10.7 [facility] Platelets Auto (Bld) [#/Vol] Ordered By: Marvin Serrano on 08-06-2024 Platelets (Bld) [#/Vol] Platelets [#/volume] in Blood by Automated count 150-450 [facility] Potassium [Moles/volume] in Serum or PlasmaOrdered By: Marvin Serrano on 08-06-2024 Potassium [Moles/Vol] Potassium [Moles/v olume] in Serum or Plasma 3.5-5.1 [facility] Protein Test strip (U) [Mass /Vol]Ordered By: Marvin Serrano on 08-06-2024 Protein (U) [Mass/Vol] Protein [Mass/vol ume] in Urine by Test strip Negative [facility] Protein [Mass/volume] in Ser um or PlasmaOrdered By: Marvin Serrano on 08-06-2024 Protein [Mass/Vol] Protein [Mass/volume ] in Serum or Plasma 6.4-8.9 [facility] RBC Auto (Bld) [#/Vol]Ordere d By: Marvin Serrano on 08-06-2024 RBC (Bld) [#/Vol] Erythrocytes [#/volu me] in Blood by Automated count 3.60-5.00 [facility] Serum or plasma albumin/glob ulin mass ratioOrdered By: Marvin Serrano on 08-06-2024 Albumin/Globulin [Mass ratio] Serum or plasma albumin/globulin mass ratio [facility] Serum or plasma anion gap de terminationOrdered By: Marvin Serrano on 08-06-2024 Anion gap [Moles/Vol] Serum or plasma an ion gap determination 6.0-15.0 [facility] Sodium [Moles/volume] in Ser um or PlasmaOrdered By: Marvin Serrano on 08-06-2024 Sodium [Moles/Vol] Sodium [Moles/volume ] in Serum or Plasma 136-145 [facility] Specific gravity Test strip (U) [Rel density]Ordered By: Marvin Serrano on 08-06-2024 Specific gravity (U) [Rel density] Specific gravity of Urine by Test strip 1.001-1.03 0 [facility] Thyroid Stim Hormone w/Rflxo n 08-06-2024 Thyroid Stim Hormone w/Rflx 1.33 u[iU]/mL Normal 0.45-5.33 [facility] Comment on above: Order Comment: Comme nt use ER blood Performed By: #### E NATALIE, CBC, CMP #### [address] Urea nitrogen [Mass/volume] in Serum or PlasmaOrdered By: Marvin Serrano on 08-06-2024 Urea nitrogen [Mass/Vol] Urea nitrogen [Mass/volume] in Serum or Plasma 7-25 [facility] Urobilinogen Test strip (U) [Mass/Vol]Ordered By: Marvin Serrano on 08-06-2024 Urobilinogen (U) [Mass/Vol] Urobilinogen [Mass/volume] in Urine by Test strip Normal [facility] Vitamin D 25 Hydroxy Totalon 08-06-2024 Vitamin D 25 Hydroxy Total 9.7 ng/mL Low 30-100 [facility] Comment on above: Order Comment: Comme nt use ER blood Result Comment: ALEXIA MIN D STATUS 25(OH)VITAMIN D RANGE (ng/mL) Deficient <20 Insufficient 20 to <30 Sufficient 30 to 100 Reference: Pam MF,Abelardo MUÑOZ, Cj GARZA, et al. Evaluation,treatment, and prevention of vitamin D deficiency; an Endocrine Society clinical practice guideline. JCEM. 2010; 96(7):1911-30. PERFORMED BY: [place] [address] PATHOLOGIST [employer] TRISTEN MOSELEY M.D. Performed By: #### E NATALIE, CBC, CMP #### [address] WBC Auto (Bld) [#/Vol]Ordere d By: Marvin Serrano on 08-06-2024 WBC (Bld) [#/Vol] Leukocytes [#/volume ] in Blood by Automated count 3.8-11.6 [facility] pH Test strip (U)Ordered By: Marvin Serrano on 08-06-2024 pH (U) pH of Urine by Test strip 5.0-9.0 [facility] PREG QUANT HCGon 08-04- 024 HCG QUANTITATIVE 4763 mIU/mL [facility] Comment on above: 5-50 0.2-1 WEEK 50-500 1-2 WEEKS 100-5,000 2-3 WEEKS 500-10,000 3-4 WEEKS 1,000-50,000 4-5 WEEKS 10,000-100,000 5-6 WEEKS 15,000-200,000 6-8 WEEKS 10,000-100,000 2-[facility] PREG QUANT HCGon 16- 024 HCG QUANTITATIVE 2355 mIU/mL [facility] Comment on above: 5-50 0.2-1 WEEK 50-500 1-2 WEEKS 100-5,000 2-3 WEEKS 500-10,000 3-4 WEEKS 1,000-50,000 4-5 WEEKS 10,000-100,000 5-6 WEEKS 15,000-200,000 6-8 WEEKS 10,000-100,000 2[facility] Alanine aminotransferase [En zymatic activity/volume] in Serum or PlasmaOrdered By: Sarah Dodd on 07-14-2024 ALT [Catalytic activity/Vol] 9 U/L Normal [facility] Comment on above: Performed By: #### A JAROCHO [facility], URDS #### [facility] [address] [id number] [facility] ALT [Catalytic activity/Vol] Alanine aminotransferase [Enzymatic activity/volume] in Serum or Plasma [facility] Albumin [Mass/volume] in Ser um or Plasma by Bromocresol green (BCG) dye binding methoOrdered By: Sarah Dodd on 07-14-2024 Albumin BCG dye [Mass/Vol] 4.1 g/dL 3.5-5.7 [facility] Albumin BCG dye [Mass/Vol] Albumin [Mass/volume] in Serum or Plasma by Bromocresol green (BCG) dye binding metho 3.5-5.7 [facility] Alkaline phosphatase [Enzyma tic activity/volume] in Serum or PlasmaOrdered By: Sarah Dodd on 07-14-2024 ALP [Catalytic activity/Vol] 48 U/L Normal 34-104 [facility] Comment on above: Performed By: #### A JAROCHO [facility], URDS #### [facility] [address] [id number] [facility] ALP [Catalytic activity/Vol] Alkaline phosphatase [Enzymatic activity/volume] in Serum or Plasma 34-104 [facility] Appearance of UrineOrdered B y: Sarah Dodd on 07-14-2024 Appearance (U) Urine appearance Clear [facility] Aspartate aminotransferase [ Enzymatic activity/volume] in Serum or PlasmaOrdered By: Sarah Dodd on 07-14-2024 AST [Catalytic activity/Vol] 14 U/L Normal 13-39 [facility] Comment on above: Performed By: #### A JAROCHO [facility], URDS #### [address] AST [Catalytic activity/Vol] Aspartate aminotransferase [Enzymatic activity/volume] in Serum or Plasma 13-39 [facility] Automated basophil %Ordered By: Sarah Dodd on 07-14-2024 Basophils/100 WBC (Bld) 0.4 % Normal . [facility] Comment on above: Performed By: #### [facility] #### [address] Automated basophil countOrde red By: Sarah Dodd on 07-14-2024 Basophils (Bld) [#/Vol] 0.0 10*3/uL Normal 0.0-0.2 [facility] Comment on above: Result Comment: PERF ORMED BY: [place] [address] PATHOLOGIST [employer] CLAU ZAVALA M.D. Performed By: #### A JAROCHO [facility], URDS #### [address] Automated blood monocyte cou ntOrdered By: Sarah Dodd on 07-14-2024 Monocytes (Bld) [#/Vol] 0.5 10*3/uL Normal 0.0-0.8 [facility] Comment on above: Performed By: #### [facility], URDS #### [address] Automated eosinophil %Ordere d By: Sarah Dodd on 07-14-2024 Eosinophils/100 WBC (Bld) 0.6 % Normal . [facility] Comment on above: Performed By: #### A JAROCHO [facility], URDS #### [address] Automated eosinophil countOr dered By: Sarah Dodd on 07-14-2024 Eosinophils (Bld) [#/Vol] 0.0 10*3/uL Normal 0.0-0.45 [facility] Comment on above: Performed By: #### A MYLES AVENDAÑO, URDS #### [address] Automated monocyte %Ordered By: Sarah Dodd on 07-14-2024 Monocytes/100 WBC (Bld) 12.3 % Normal . [facility] Comment on above: Performed By: #### A MYLES AVENDAÑO, URDS #### [address] Automated neutrophil %Ordere d By: Sarah Dodd on 07-14-2024 Neutrophils/100 WBC (Bld) 63.5 % Normal . [facility] Comment on above: Performed By: #### A JAROCHO KATHERYN, URDS #### [address] Bacteria [Presence] in Urine by AutomatedOrdered By: Sarah Dodd on 07-14-2024 Bacteria Auto Ql (U) Rare [HPF] None Seen [facility] Bacteria Auto Ql (U) Bacteria [Presence] in Urine by Automated None Seen [facility] Basic Metabolic Panelon 06-18 Creatinine Clr Calc Pharmacy 107.14 Normal [facility] Comment on above: Performed By: #### A MYLES AVENDAÑO, URDS #### [address] GFR/1.73 sq M.predicted MDRD (S/P/Bld) [Vol rate/Area] mL/min/{1.73_m2} Normal [facility] Comment on above: Performed By: #### A MYLES AVENDAÑO, URDS #### [address] Basophils Auto (Bld) [#/Vol] Ordered By: Sarah Dodd on 07-14-2024 Basophils (Bld) [#/Vol] Automated basophil count 0.0-0.2 [facility] Basophils/100 WBC Auto (Bld) Ordered By: Sarah Dodd on 07-14-2024 Basophils/100 WBC (Bld) Automated basophil % . [facility] Bilirubin Test strip Ql (U)O rdered By: Sarah Dodd on 07-14-2024 Bilirubin Ql (U) Negative Negative [facility] Bilirubin Ql (U) Bilirubin.total [Pre sence] in Urine by Test strip Negative [facility] Bilirubin.direct [Mass/volum e] in Serum or PlasmaOrdered By: Sarah Dodd on 07-14-2024 Bilirubin.direct [Mass/Vol] 0.10 mg/dL 0.03-0.18 [facility] Bilirubin.direct [Mass/Vol] Bilirubin.direct [Mass/volume] in Serum or Plasma 0.03-0.18 [facility] Bilirubin.total [Mass/volume ] in Serum or PlasmaOrdered By: Sarah Dodd on 07-14-2024 Bilirubin [Mass/Vol] 0.4 mg/dL Normal 0.3-1.0 [facility] Comment on above: Performed By: #### A DDONUAPLUS, [facility], URDS #### [facility] [address] [place] [address] Bilirubin [Mass/Vol] Bilirubin.total [Mass/volume] in Serum or Plasma 0.3-1.0 [facility] COVID CepheidOrdered By: Macarena Dodd on 07-14-2024 SARS-CoV-2 (COVID-19) Ab IA Ql Negative Negative [facility] Comment on above: This is a duplicate Cepheid Xpert Xpress CoV-2/Flu/RSV Plus RNA by RT-PCR result to be used for statistical tracking purpose only. SARS-CoV-2 (COVID-19) RNA HIRAM+probe Ql (Unsp spec) [facility] COVID Cepheid NegativeOrdere d By: Sarah Dodd on 07-14-2024 SARS-CoV-2 (COVID-19) Ab IA Ql COVID Cepheid Negative [facility] Comment on above: This is a [...] or Cepheid Disclaimer revoked sooner. PERFORMED BY: [facility] Jcarlos [place] [address] PATHOLOGIST [employer]AT MARKET MANAGER CLAU ZAVALA M.D. Normal [facility] Comment on above: Performed By: #### C OVID19 FLU RSV, CEPHEID NEG #### [facility] [address] abdomen pelvis w conon CT abdomen pelvis w con [facility] Main [place] [address] [place] [id number] Scan Report Signed Patient: Leandra Fonseca MR#: [id number] 1238 : 1990 Acct:[id number] Age/Sex: 34 / F ADM Date: 07/14/24 Loc: ER Room: Type: [facility] ER Attending Dr: Copies to: DO Lety [...] seen. Impression dictated by: Leroy Mancera Jr., IzabelaOJorge07/14/2024 2:43 PM Dictation Location: [place] [address] Transcribed By: [facility] 07/14/24 1443 Dictated By: Leroy Mancera Jr, DO 07/14/24 1438 Signed By: 07/14/24 1443 Normal [facility] Calcium [Mass/volume] in Ser um or PlasmaOrdered By: Sarah Dodd on 07-14-2024 Calcium [Mass/Vol] 8.9 mg/dL Normal 8.6-10.3 [facility] Comment on above: Performed By: #### A JAROCHO Ivelisse, URDS #### [address] Calcium [Mass/Vol] Calcium [Mass/volume ] in Serum or Plasma 8.6-10.3 [facility] Carbon dioxide, total [Moles /volume] in Serum or PlasmaOrdered By: Sarah Dodd on 07-14-2024 CO2 [Moles/Vol] 25.2 mmol/L Normal 21.0-31.0 [facility] Comment on above: Performed By: #### A MYLES AVENDAÑO, URDS #### [address] CO2 [Moles/Vol] Carbon dioxide, tota l [Moles/volume] in Serum or Plasma 21.0-31.0 [facility] Cepheid COVID PCR Negativeon 07-14-2024 SARS-CoV-2 (COVID-19) RNA HIRAM+probe Ql (Unsp spec) Negative Normal Negative [facility] Comment on above: Result Comment: This is a duplicate Cepheid Xpert Xpress CoV-2/Flu/RSV Plus RNA by RT-PCR result to be used for statistical tracking purpose only. PERFORMED BY: [place] [address] PATHOLOGIST [employer] MARKET MANAGER CLAU ZAVALA M.D. Performed By: #### C OVID19 FLU RSV, CEPHEID NEG #### [address] Chloride [Moles/volume] in S salas or PlasmaOrdered By: Sarah Dodd on 07-14-2024 Chloride [Moles/Vol] 105 mmol/L Normal 98-107 [facility] Comment on above: Performed By: #### A DDONUAPLUS, UHCG, URDS #### [address] Chloride [Moles/Vol] Chloride [Moles/vol ume] in Serum or Plasma 98-107 [facility] Color Auto (U)Ordered By: Godfrey Dodd on 07-14-2024 Color (U) Color of Urine by Auto Yellow Fi [facility] Color of Urine by AutoOrdere d By: Sarah Dodd on 07-14-2024 Color (U) Yellow Normal Yellow [facility] Comment on above: Order Comment: Name Collection Type:: Clean-Voided Midstream Performed By: #### A DDONUAPLUS, UHCG, URDS #### [address] Complete Blood Count Auto Di ffon 07-14-2024 Mean Corpuscular HGB Conc 32.2 g/dL Normal 32.0-35.0 [facility] Comment on above: Performed By: #### A DDONUAPLUS, UHCG, URDS #### [address] Monocytes/100 WBC (Bld) 20.43 % High 0.00-20.00 [facility] Comment on above: Result Comment: For adults in ED, MDW > 20.0 may be associated with a higher risk of sepsis during the first 12 hrs of hospital admission Performed By: #### A DDONUAPLUS, UHCG, URDS #### [facility] [address] [place] [address] NRBC% 0.1 /100{WBC} Normal 0-0.5 [facility] Comment on above: Performed By: #### A DDONUAPLUS, UHCG, URDS #### [address] Creatinine [Mass/volume] in Serum or PlasmaOrdered By: Sarah Dodd on 07-14-2024 Creatinine [Mass/Vol] 0.71 mg/dL Normal 0.60-1.20 [facility] Comment on above: Performed By: #### A DDONUAPLUS, UHCG, URDS #### [facility] [address] Creatinine [Mass/Vol] Creatinine [Mass/v olume] in Serum or Plasma 0.60-1.20 [facility] Dipstick and Microscopicon 1 Bacteria,Urine Rare Normal None Seen [facility] Comment on above: Order Comment: Name Collection Type:: Clean-Voided Midstream Performed By: #### A DDONUAPLUS, UHCG, URDS #### [facility] [address] [place] [address] Bilirubin,Urine Negative Normal Negative [facility] Comment on above: Order Comment: Name Collection Type:: Clean-Voided Midstream Performed By: #### A DDONUAPLUS, UHCG, URDS #### [address] Glucose Ql (U) Normal Normal Normal [facility] Comment on above: Order Comment: Name Collection Type:: Clean-Voided Midstream Performed By: #### A DDONUAPLUS, UHCG, URDS #### [facility] [address] [place] [address] [place] Hyaline Casts,Urine None Normal 0-8 [facility] Comment on above: Order Comment: Name Collection Type:: Clean-Voided Midstream Performed By: #### A DDONUAPLUS, UHCG, URDS #### [facility] [address] [place] [address] [place] Mucus,Urine 2+ Critically abnormal [facility] Comment on above: Order Comment: Name Collection Type:: Clean-Voided Midstream Performed By: #### A DDONUAPLUS, UHCG, URDS #### [place] [address] [place] Nitrite,Urine Negative Normal Negative [facility] Comment on above: Order Comment: Name Collection Type:: Clean-Voided Midstream Performed By: #### A DDONUAPLUS, UHCG, URDS #### [address] Occult Blood,Urine 1+ High Negative [facility] Comment on above: Order Comment: Name Collection Type:: Clean-Voided Midstream Performed By: #### A DDONUAPLUS, UHCG, URDS #### [address] RBC,Urine 20-49 High 0-4 [facility] Comment on above: Order Comment: Name Collection Type:: Clean-Voided Midstream Performed By: #### A DDONUAPLUS, UHCG, URDS #### [address] Specificy [place],Urine 1.030 Normal 1.001-1.03 0 [facility] Comment on above: Order Comment: Name Collection Type:: Clean-Voided Midstream Performed By: #### A DDONUAPLUS, UHCG, URDS #### [address] Squamous Epithelial Cell,Urine 5-9 High 0-2 [facility] Comment on above: Order Comment: Name Collection Type:: Clean-Voided Midstream Performed By: #### A DDONUAPLUS, UHCG, URDS #### [address] Urobilinogen,Urine 3 mg/dL High Normal [facility] Comment on above: Order Comment: Name Collection Type:: Clean-Voided Midstream Performed By: #### A DDONUAPLUS, UHCG, URDS #### [place] [address] [place] WBC,Urine 5-9 High 0-4 [facility] Comment on above: Order Comment: Name Collection Type:: Clean-Voided Midstream Performed By: #### A DDONUAPLUS, UHCG, URDS #### [address] [place] [address] [facility] ECG 12 lead ECGon 07-14-2024 ECG 12 lead ECG [facility] Main [place] [address] [place], [place] [id number] Electrocardiograph Report Signed Patient: Leandra Fonseca MR#: [id number] 1238 : 1990 Acct:[id number] Age/Sex: 34 / F ADM Date: 07/14/24 Loc: ER Room: Type: [facility] ER Attending Dr: Ordering Provider: Sarah [...] sinus rhythm Confirmed by Glenroy Weldon DO ([id number]) on 07/14/2024 8:07:49 PM Referred By: Electronically Signed By: Glenroy Weldno DO Transcribed By: MUS Signed By Glenroy Weldon DO 2006 Normal [facility] Eosinophils Auto (Bld) [#/Vo l]Ordered By: Sarah Dodd on 07-14-2024 Eosinophils (Bld) [#/Vol] Automated eosinophil count 0.0-0.45 [facility] Eosinophils/100 WBC Auto (Bl d)Ordered By: Sarah Dodd on 07-14-2024 Eosinophils/100 WBC (Bld) Automated eosinophil % . [facility] Epithelial cells.squamous [# /area] in Urine sediment by Automated countOrdered By: Sarah Dodd on 07-14-2024 Epithelial cells.squamous Auto (Urine sed) [#/Area] 5-9 [HPF] High 0-2 [facility] Epithelial cells.squamous Auto (Urine sed) [#/Area] Epithelial cells.squamous [#/area] in Urine sediment by Automated count High 0-2 [facility] Erythrocyte distribution wid th Auto (RBC) [Ratio]Ordered By: Sarah Dodd on 07-14-2024 Erythrocyte distribution width (RBC) [Ratio] Erythrocyte distribution width [Ratio] by Automated count 11.9-15.3 [facility] Erythrocyte distribution wid th [Ratio] by Automated countOrdered By: Sarah Dodd on 07-14-2024 Erythrocyte distribution width (RBC) [Ratio] 13.7 % Normal 11.9-15.3 [facility] Comment on above: Performed By: #### A JAROCHO, ESDRASG, URDS #### [facility] [address] Erythrocytes [#/area] in Uri ne sediment by Automated countOrdered By: Sarah Dodd on 07-14-2024 RBC Auto (Urine sed) [#/Area] 20-49 [HPF] High 0-4 [facility] RBC Auto (Urine sed) [#/Area] Erythrocytes [#/area] in Urine sediment by Automated count High 0-4 [facility] Erythrocytes [#/volume] in B lood by Automated countOrdered By: Sarah Dodd on 07-14-2024 RBC (Bld) [#/Vol] 4.57 10*6/uL Normal 3.60-5.00 [facility] Comment on above: Performed By: #### A JAROCHO, [facility], URDS #### [address] Globulin Calc (S) [Mass/Vol] Ordered By: Sarah Dodd on 07-14-2024 Globulin (S) [Mass/Vol] Serum globulin measurement by calculation (mass/volume) [facility] Glucose [Mass/volume] in Ser um or PlasmaOrdered By: Sarah Dodd on 07-14-2024 Glucose [Mass/Vol] 88 mg/dL Normal 70-100 [facility] Comment on above: ADA recommended refe rence rangeRandom Glucose Reference Range is dependent on time and content of last meal. Glucose of more than 200 mg/dL in a nonstressed, ambulatory subject supports the diagnosis of Diabetes Mellitus. Result Comment: [place] Glucose Reference Range is dependent on time and content of last meal. Glucose of more than 200 mg/dL in a nonstressed, ambulatory subject supports the diagnosis of Diabetes Mellitus. ADA recommended reference range Performed By: #### A DDONUAPLUS, UHCG, URDS #### [facility] [address] Glucose [Mass/Vol] Glucose [Mass/volume ] in Serum or Plasma 70-100 [facility] Comment on above: ADA recommended refe rence rangeRandom Glucose Reference Range is dependent on time and content of last meal. Glucose of more than 200 mg/dL in a nonstressed, ambulatory subject supports the diagnosis of Diabetes Mellitus. Glucose [Mass/volume] in Uri ne by Test stripOrdered By: Sarah Dodd on 07-14-2024 Glucose Test strip (U) [Mass/Vol] Normal mg/dL Normal [facility] Glucose Test strip (U) [Mass/Vol] Glucose [Mass/volume] in Urine by Test strip Normal [facility] HCG ( test) IA.rapi d Ql (U)Ordered By: ROMMEL BRIGGS on 07-14-2024 HCG ( test) Ql (U) Negative [facility] HCG ( test) Ql (U) Urine human chorionic gonadotropin (hCG) detection by immunoassay [facility] HCG,Urineon 07-14-2024 Beta HCG ( test) Ql (U) Negative Normal [facility] Comment on above: Order Comment: Name Collection Type:: Clean-Voided Midstream Result Comment: PERF ORMED BY: [place] [address] PATHOLOGIST [employer] MANAGER CLAU ZAVALA M.D. Performed By: #### A DDONUAPLUS, [facility], URDS #### [facility] [address] [place] [address] Hematocrit Auto (Bld) [Volum e fraction]Ordered By: Sarah Dodd on 07-14-2024 Hematocrit (Bld) [Volume fraction] Hematocrit [Volume Fraction] of Blood by Automated count Low 34.0-46.4 [facility] Hematocrit [Volume Fraction] of Blood by Automated countOrdered By: Sarah Dodd on 07-14-2024 Hematocrit (Bld) [Volume fraction] 33.4 % Low 34.0-46.4 [facility] Comment on above: Performed By: #### A ESDRAS AVENDAÑOG, URDS #### [address] Hemoglobin Test strip Ql (U) Ordered By: Sarah Dodd on 07-14-2024 Hemoglobin Ql (U) 1+ High Negative [facility] Hemoglobin Ql (U) Hemoglobin [Presence ] in Urine by Test strip High Negative [facility] Hemoglobin [Mass/volume] in BloodOrdered By: Sarah Dodd on 07-14-2024 Hemoglobin (Bld) [Mass/Vol] 10.8 g/dL Low 11.8-15.4 [facility] Comment on above: Performed By: #### A MYLES AVENDAÑO, URDS #### [address] Hemoglobin (Bld) [Mass/Vol] Hemoglobin [Mass/volume] in Blood Low 11.8-15.4 [facility] Hepatic Panelon 07-14-2024 Albumin [Mass/Vol] 4.1 g/dL Normal 3.5-5.7 [facility] Comment on above: Performed By: #### A MYLES AVENDAÑO, URDS #### [address] Bilirubin,Indirect 0.3 mg/dL Normal [facility] Comment on above: Performed By: #### A MYLES AVENDAÑO, URDS #### [address] Bilirubin.indirect [Mass/Vol] 0.10 mg/dL Normal 0.03-0.18 [facility] Comment on above: Performed By: #### A MARIAJOSEONUAPLUSJORGECG, URDS #### [address] Hyaline casts [#/area] in Ur ine sediment by Automated countOrdered By: Sarah Dodd on 07-14-2024 Hyaline casts Auto (Urine sed) [#/Area] None [LPF] 0-8 [facility] Hyaline casts Auto (Urine sed) [#/Area] Hyaline casts [#/area] in Urine sediment by Automated count 0-8 [facility] Ketones Test strip Ql (U)Ord ered By: aSrah Dodd on 07-14-2024 Ketones Ql (U) Ketones [Presence] i n Urine by Test strip High Negative [facility] Ketones [Presence] in Urine by Test stripOrdered By: Sarah Dodd on 07-14-2024 Ketones Ql (U) 2+ High Negative [facility] Comment on above: Order Comment: Name Collection Type:: Clean-Voided Midstream Performed By: #### A DDONUAPLUS, UHCG, URDS #### [facility] [address] [place] [address] [place] Leukocyte esterase [Presence ] in Urine by Test stripOrdered By: Sarah Dodd on 07-14-2024 Leukocyte esterase Test strip Ql (U) Negative Normal Negative [facility] Comment on above: Order Comment: Name Collection Type:: Clean-Voided Midstream Performed By: #### A DDONUAPLUS, UHCG, URDS #### [facility] [address] [place] [address] [place] Leukocyte esterase Test strip Ql (U) Leukocyte esterase [Presence] in Urine by Test strip Negative [facility] Leukocytes [#/area] in Urine sediment by Automated countOrdered By: Sarah Dodd on 07-14-2024 WBC Auto (Urine sed) [#/Area] 5-9 [HPF] High 0-4 [facility] WBC Auto (Urine sed) [#/Area] Leukocytes [#/area] in Urine sediment by Automated count High 0-4 [facility] Leukocytes [#/volume] correc delmer for nucleated erythrocytes in Blood by Automated counOrdered By: Sarah Dodd on 07-14-2024 WBC corrected for nucl RBC Auto (Bld) [#/Vol] 4.3 10*3/uL 3.8-11.6 [facility] WBC corrected for nucl RBC Auto (Bld) [#/Vol] Leukocytes [#/volume] corrected for nucleated erythrocytes in Blood by Automated coun 3.8-11.6 [facility] Leukocytes [#/volume] in Blo od by Automated countOrdered By: Sarah Dodd on 07-14-2024 WBC (Bld) [#/Vol] 4.3 10*3/uL Normal 3.8-11.6 [facility] Comment on above: Performed By: #### A JAROCHO [facility], URDS #### [facility] [address] [place] [address] [place] Lipase [Enzymatic activity/v olume] in Serum or PlasmaOrdered By: Sarah Dodd on 07-14-2024 Lipase [Catalytic activity/Vol] 45.0 U/L Normal 11.0-82.0 [facility] Comment on above: Result Comment: PERF ORMED BY: [place] [address] PATHOLOGIST [employer] MANAGER CLAU ZAVALA M.D. Performed By: #### A JAROCHO [facility], URDS #### [facility] [address] [place] [id number] [place] Lipase [Catalytic activity/Vol] Lipase [Enzymatic activity/volume] in Serum or Plasma 11.0-82.0 [facility] Lymphocytes Auto (Bld) [#/Vo l]Ordered By: Sarah Dodd on 07-14-2024 Lymphocytes (Bld) [#/Vol] Lymphocytes [#/volume] in Blood by Automated count 1.00-4.8 [facility] Lymphocytes [#/volume] in Bl ood by Automated countOrdered By: Sarah Dodd on 07-14-2024 Lymphocytes (Bld) [#/Vol] 1.0 10*3/uL Normal 1.00-4.8 [facility] Comment on above: Performed By: #### A JAROCHO [facility], URDS #### [facility] [address] [place] [id number] [place] Lymphocytes/100 WBC Auto (Bl d)Ordered By: Sarah Dodd on 07-14-2024 Lymphocytes/100 WBC (Bld) Lymphocytes/100 leukocytes in Blood by Automated count . [facility] Lymphocytes/100 leukocytes i n Blood by Automated countOrdered By: Sarah Dodd on 07-14-2024 Lymphocytes/100 WBC (Bld) 23.2 % Normal . [facility] Comment on above: Performed By: #### A MYLES AVENDAÑO, URDS #### [facility] [address] MCH Auto (RBC) [Entitic mass ]Ordered By: Sarah Dodd on 07-14-2024 MCH (RBC) [Entitic mass] MCH [Entitic mass] by Automated count Low 24.7-34.3 [facility] MCH [Entitic mass] by Automa delmer countOrdered By: Sarah Dodd on 07-14-2024 MCH (RBC) [Entitic mass] 23.5 pg Low 24.7-34.3 [facility] Comment on above: Performed By: #### A MYLES AVENDAÑO, URDS #### [facility] [address] MCHC Auto (RBC) [Mass/Vol]Or dered By: Sarah Dodd on 07-14-2024 MCHC (RBC) [Mass/Vol] 32.2 g/dL 32.0-35.0 [facility] MCHC (RBC) [Mass/Vol] MCHC [Mass/volume] by Automated count 32.0-35.0 [facility] MCV Auto (RBC) [Entitic vol] Ordered By: Sarah Dodd on 07-14-2024 MCV (RBC) [Entitic vol] MCV [Entitic volume] by Automated count Low 80-100 [facility] MCV [Entitic volume] by Auto mated countOrdered By: Sarah Dodd on 07-14-2024 MCV (RBC) [Entitic vol] 73.1 fL Low 80-100 [facility] Comment on above: Performed By: #### A MYLES AVENDAÑO, URDS #### [facility] [address] Monocyte distribution width [Entitic volume] in Blood by AutomatedOrdered By: Sarah Dodd on 07-14-2024 Monocyte distribution width Auto (Bld) [Entitic vol] 20.43 % High 0.00-20.00 [facility] Comment on above: For adults in ED, MD W > 20.0 may be associated with a higher risk of sepsis during the first 12 hrs of hospital admission Monocyte distribution width Auto (Bld) [Entitic vol] Monocyte distribution width [Entitic volume] in Blood by Automated High 0.00-20.00 [facility] Comment on above: For adults in ED, MD W > 20.0 may be associated with a higher risk of sepsis during the first 12 hrs of hospital admission Monocytes Auto (Bld) [#/Vol] Ordered By: Sarah Dodd on 07-14-2024 Monocytes (Bld) [#/Vol] Automated blood monocyte count 0.0-0.8 [facility] Monocytes/100 WBC Auto (Bld) Ordered By: Sarah Dodd on 07-14-2024 Monocytes/100 WBC (Bld) Automated monocyte % . [facility] Mucus [Presence] in Urine by AutomatedOrdered By: Sarah Dodd on 07-14-2024 Mucus Auto Ql (U) 2+ [LPF] Abnormal [facility] Mucus Auto Ql (U) Mucus [Presence] in Urine by Automated Abnormal [facility] Neutrophils Auto (Bld) [#/Vo l]Ordered By: Sarah Dodd on 07-14-2024 Neutrophils (Bld) [#/Vol] Neutrophils [#/volume] in Blood by Automated count 1.8-7.7 [facility] Neutrophils [#/volume] in Bl ood by Automated countOrdered By: Sarah Dodd on 07-14-2024 Neutrophils (Bld) [#/Vol] 2.7 10*3/uL Normal 1.8-7.7 [facility] Comment on above: Performed By: #### A DDONUAPLUS, CG, URDS #### [facility] [address] Neutrophils/100 WBC Auto (Bl d)Ordered By: Sarah Dodd on 07-14-2024 Neutrophils/100 WBC (Bld) Automated neutrophil % . [facility] Nitrite Test strip Ql (U)Ord ered By: Sarah Dodd on 07-14-2024 Nitrite Ql (U) Negative Negative [facility] Nitrite Ql (U) Nitrite [Presence] i n Urine by Test strip Negative [facility] No Panel InformationOrdered By: Sarah Dodd on 07-14-2024 Estimated GFR (CKD-EPI) > 60.0 mL/Min [facility] Creatinine Clearance (Chem 107.14 [facility] Nucleated erythrocytes [Pres ence] in Blood by Automated countOrdered By: Sarah Dodd on 07-14-2024 Nucleated RBC Auto Ql (Bld) 0.1 /100{WBC} 0-0.5 [facility] Nucleated RBC Auto Ql (Bld) Nucleated erythrocytes [Presence] in Blood by Automated count 0-0.5 [facility] Platelet mean volume Auto (B ld) [Entitic vol]Ordered By: Sarah Dodd on 07-14-2024 Platelet mean volume (Bld) [Entitic vol] Platelet mean volume [Entitic volume] in Blood by Automated count 6.3-10.7 [facility] Platelet mean volume [Entiti c volume] in Blood by Automated countOrdered By: Sarah Dodd on 07-14-2024 Platelet mean volume (Bld) [Entitic vol] 9.1 fL Normal 6.3-10.7 [facility] Comment on above: Performed By: #### A JAROCHO [facility], URDS #### [facility] [address] [place] [address] [place] Platelets Auto (Bld) [#/Vol] Ordered By: Sarah Dodd on 07-14-2024 Platelets (Bld) [#/Vol] Platelets [#/volume] in Blood by Automated count 150-450 [facility] Platelets [#/volume] in Bloo d by Automated countOrdered By: Sarah Dodd on 07-14-2024 Platelets (Bld) [#/Vol] 168 10*3/uL Normal 150-450 [facility] Comment on above: Performed By: #### A JAROCHO, [facility], URDS #### [facility] [address] [place] [address] [place] Potassium [Moles/volume] in Serum or PlasmaOrdered By: Sarah Dodd on 07-14-2024 Potassium [Moles/Vol] 3.3 mmol/L Low 3.5-5.1 [facility] Comment on above: Performed By: #### A JAROCHO [facility], URDS #### [facility] [address] Potassium [Moles/Vol] Potassium [Moles/v olume] in Serum or Plasma Low 3.5-5.1 [facility] Protein Test strip (U) [Mass /Vol]Ordered By: Sarah Dodd on 07-14-2024 Protein (U) [Mass/Vol] Protein [Mass/vol ume] in Urine by Test strip High Negative [facility] Protein [Mass/volume] in Ser um or PlasmaOrdered By: Sarah Dodd on 07-14-2024 Protein [Mass/Vol] 7.2 g/dL Normal 6.4-8.9 [facility] Comment on above: Performed By: #### A JAROCHO KATHERYN, URDS #### [facility] [address] [place] [address] Protein [Mass/Vol] Protein [Mass/volume ] in Serum or Plasma 6.4-8.9 [facility] Protein [Mass/volume] in Uri ne by Test stripOrdered By: Sarah Dodd on 07-14-2024 Protein (U) [Mass/Vol] 20 mg/dL High Negative [facility] Comment on above: Order Comment: Name Collection Type:: Clean-Voided Midstream Performed By: #### A JAROCHO Ivelisse, URDS #### [address] RBC Auto (Bld) [#/Vol]Ordere d By: Sarah Dodd on 07-14-2024 RBC (Bld) [#/Vol] Erythrocytes [#/volu me] in Blood by Automated count 3.60-5.00 [facility] Respiratory specimen influen za A virus, influenza B virus, respiratory syncytical virOrdered By: Sarah Dodd on 07-14-2024 SARS-CoV-2 (COVID-19) RNA HIRAM+probe Ql (Unsp spec) Respiratory specimen influenza A virus, influenza B virus, respiratory syncytical vir [facility] Serum globulin measurement b y calculation (mass/volume)Ordered By: Sarah Dodd on 07-14-2024 Globulin (S) [Mass/Vol] 3.1 g/dL Normal [facility] Comment on above: Performed By: #### A MYLES AVENDAÑO, URDS #### [facility] [address] [place] [address] Serum or plasma albumin/glob ulin mass ratioOrdered By: Sarah Dodd on 07-14-2024 Albumin/Globulin [Mass ratio] 1.3 {ratio} Normal [facility] Comment on above: Performed By: #### A JAROCHO KATHERYN, URDS #### [address] Albumin/Globulin [Mass ratio] Serum or plasma albumin/globulin mass ratio [facility] Serum or plasma anion gap de terminationOrdered By: Sarah Dodd on 07-14-2024 Anion gap [Moles/Vol] 11.1 mmol/L Normal 6.0-15.0 [facility] Comment on above: Performed By: #### A JAROCHO KATHERYN, URDS #### [address] Anion gap [Moles/Vol] Serum or plasma an ion gap determination 6.0-15.0 [facility] Serum or plasma non-glucuron idated bilirubin measurement (mass/volume)Ordered By: Sarah Dodd on 07-14-2024 Bilirubin.indirect [Mass/Vol] 0.3 mg/dL [facility] Bilirubin.indirect [Mass/Vol] Serum or plasma non-glucuronidated bilirubin measurement (mass/volume) [facility] Sodium [Moles/volume] in Ser um or PlasmaOrdered By: Sarah Dodd on 07-14-2024 Sodium [Moles/Vol] 138 mmol/L Normal 136-145 [facility] Comment on above: Performed By: #### A MYLES AVENDAÑO, URDS #### [facility] [address] [place] [address] [place] Sodium [Moles/Vol] Sodium [Moles/volume ] in Serum or Plasma 136-145 [facility] Specific gravity Test strip (U) [Rel density]Ordered By: Sarah Dodd on 07-14-2024 Specific gravity (U) [Rel density] 1.030 1.001-1.03 0 [facility] Specific gravity (U) [Rel density] Specific gravity of Urine by Test strip 1.001-1.03 0 [facility] Urea nitrogen [Mass/volume] in Serum or PlasmaOrdered By: Sarah Dodd on 07-14-2024 Urea nitrogen [Mass/Vol] 9 mg/dL Normal 04-10 [facility] Comment on above: Performed By: #### A MYLES AVENDAÑO, URDS #### [facility] [address] Urea nitrogen [Mass/Vol] Urea nitrogen [Mass/volume] in Serum or Plasma 04-10 [facility] Urine appearanceOrdered By: Sarah Dodd on 07-14-2024 Appearance (U) Clear Normal Clear [facility] Comment on above: Order Comment: Name Collection Type:: Clean-Voided Midstream Performed By: #### A JAROCHO, ESDRASG, URDS #### [facility] [address] Urobilinogen Test strip (U) [Mass/Vol]Ordered By: Sarah Dodd on 07-14-2024 Urobilinogen (U) [Mass/Vol] 3 mg/dL [facility] Normal [facility] Urobilinogen (U) [Mass/Vol] Urobilinogen [Mass/volume] in Urine by Test strip [facility] WBC Auto (Bld) [#/Vol]Ordere d By: Sarah Dodd on 07-14-2024 WBC (Bld) [#/Vol] Leukocytes [#/volume ] in Blood by Automated count 3.8-11.6 [facility] pH Test strip (U)Ordered By: Sarah Dodd on 07-14-2024 pH (U) pH of Urine by Test strip 5.0-9.0 [facility] pH of Urine by Test stripOrd ered By: Sarah Dodd on 07-14-2024 pH (U) 6.0 [pH] Normal 5.0-9.0 [facility] Comment on above: Order Comment: Name Collection Type:: Clean-Voided Midstream Performed By: #### A DDONUAPLUS, UHCG, URDS #### [facility] [address] [place] [id number] [facility] CHLAMYDIA/GC BY PCRon 2023 CHLAMYDIA/GC BY PCR [...] are dependent on adequate specimen collection. Normal [facility] Comment on above: Performed By: #### C GS #### [facility] ([id number]) [address] [place] [address], [address] [place] [address] VAGINITIS PANEL PCRon 2023 VAGINITIS PANEL PCR [...] with clinical presentation to determine patient diagnosis. [facility] Comment on above: Performed By: #### V PPCR #### [facility] ([id number]) [address] [facility] [place] [address] B-Type Natriuretic Peptideon 11-24-2023 Natriuretic peptide B (Bld) [Mass/Vol] 13.0 pg/mL Normal 5-100 [facility] Comment on above: Result Comment: PERF ORMED BY: [place] [address] PATHOLOGIST [employer] CLAU ZAVALA M.D. Performed By: #### A DDDOMINGOUAPLUSJORGECG, URDS #### [address] Basic Metabolic Panelon Anion gap [Moles/Vol] 8.4 mmol/L Normal 6.0-15.0 [facility] Comment on above: Performed By: #### A DDDOMINGOUAJORGE LOAIZACG, URDS #### [address] Calcium [Mass/Vol] 8.8 mg/dL Normal 8.6-10.3 [facility] Comment on above: Performed By: #### A DDONUAPLUSJORGECG, URDS #### [address] Chloride [Moles/Vol] 104 mmol/L Normal 98-107 [facility] Comment on above: Performed By: #### A DDONUAPLUS UHCG, URDS #### [address] CO2 [Moles/Vol] 27.5 mmol/L Normal 21.0-31.0 [facility] Comment on above: Performed By: #### A DDONUAPLUS UHCG, URDS #### [address] Creatinine [Mass/Vol] 0.77 mg/dL Normal 0.60-1.20 [facility] Comment on above: Performed By: #### A DDONUAPLUS UHCG, URDS #### [place] [address] [place] Creatinine Clr Calc Pharmacy 103.65 Normal [facility] Comment on above: Result Comment: PERF ORMED BY: [place] [address] PATHOLOGIST [employer] MA[employer] CLAU ZAVALA M.D. Performed By: #### A DDONUAPLUS UHCG, URDS #### [place] [address] [place] GFR/1.73 sq M.predicted MDRD (S/P/Bld) [Vol rate/Area] mL/min/{1.73_m2} Normal [facility] Comment on above: Performed By: #### A DDONUAPLUSJORGECG, URDS #### [address] Glucose [Mass/Vol] 103 mg/dL High 70-100 [facility] Comment on above: Result Comment: [place] Glucose Reference Range is dependent on time and content of last meal. Glucose of more than 200 mg/dL in a nonstressed, ambulatory subject supports the diagnosis of Diabetes Mellitus. ADA recommended reference range Performed By: #### A DDONUAPLUSJORGECG, URDS #### [place] [address] [place] Potassium [Moles/Vol] 3.9 mmol/L Normal 3.5-5.1 [facility] Comment on above: Performed By: #### A DDONUAPLUS UHCG, URDS #### [place] [address] [place] Sodium [Moles/Vol] 136 mmol/L Normal 136-145 [facility] Comment on above: Performed By: #### A DDONUAPLUS UHCG, URDS #### [address] Urea nitrogen [Mass/Vol] 16 mg/dL Normal 7-25 [facility] Comment on above: Performed By: #### A DDONUAPLUS UHCG, URDS #### [address] [address] [place] Complete Blood Count Auto Di ffon 11-24-2023 Basophils (Bld) [#/Vol] 0.0 10*3/uL Normal 0.0-0.2 [facility] Comment on above: Result Comment: PERF ORMED BY: [place] [address] PATHOLOGIST [employer]NA[employer] CLAU ZAVALA M.D. Performed By: #### A DDONUAPLUSJORGECG, URDS #### [address] Basophils/100 WBC (Bld) 0.6 % Normal . [facility] Comment on above: Performed By: #### A DDDOMINGOUAJORGE LOAIZACG, URDS #### [address] Eosinophils (Bld) [#/Vol] 0.1 10*3/uL Normal 0.0-0.45 [facility] Comment on above: Performed By: #### A DDONUAPLUS, UHCG, URDS #### [address] Eosinophils/100 WBC (Bld) 1.8 % Normal . [facility] Comment on above: Performed By: #### A DDONUAPLUS, UHCG, URDS #### [address] Erythrocyte distribution width (RBC) [Ratio] 14.3 % Normal 11.9-15.3 [facility] Comment on above: Performed By: #### A DDONUAPLUS, UHCG, URDS #### [address] Hematocrit (Bld) [Volume fraction] 34.8 % Normal 34.0-46.4 [facility] Comment on above: Performed By: #### A DDONUAPLUS, UHCG, URDS #### [address] Hemoglobin (Bld) [Mass/Vol] 10.9 g/dL Low 11.8-15.4 [facility] Comment on above: Performed By: #### A MYLES AVENDAÑO, URDS #### [address] Lymphocytes (Bld) [#/Vol] 1.9 10*3/uL Normal 1.00-4.8 [facility] Comment on above: Performed By: #### A MYLES AVENDAÑO, URDS #### [address] Lymphocytes/100 WBC (Bld) 22.7 % Normal . [facility] Comment on above: Performed By: #### A MYLES AVENDAÑO, URDS #### [address] MCH (RBC) [Entitic mass] 23.1 pg Low 24.7-34.3 [facility] Comment on above: Performed By: #### A MYLES AVENDAÑO, URDS #### [address] MCV (RBC) [Entitic vol] 74.1 fL Low 80-100 [facility] Comment on above: Performed By: #### A MYLES AVENDAÑO, URDS #### [address] Mean Corpuscular HGB Conc 31.3 g/dL Low 32.0-35.0 [facility] Comment on above: Performed By: #### A MYLES AVENDAÑO, URDS #### [address] Monocytes (Bld) [#/Vol] 0.5 10*3/uL Normal 0.0-0.8 [facility] Comment on above: Performed By: #### A MYLES AVENDAÑO, URDS #### [address] Monocytes/100 WBC (Bld) 18.34 % Normal 0.00-20.00 [facility] Comment on above: Performed By: #### A DDONUAPLUS UHCG, URDS #### [address] Monocytes/100 WBC (Bld) 6.4 % Normal . [facility] Comment on above: Performed By: #### A DDONUAPLUS UHCG, URDS #### [address] Neutrophils (Bld) [#/Vol] 5.7 10*3/uL Normal 1.8-7.7 [facility] Comment on above: Performed By: #### A DDONUAPLUS UHCG, URDS #### [address] Neutrophils/100 WBC (Bld) 68.5 % Normal . [facility] Comment on above: Performed By: #### A DDONUAJORGE LOAIZACG, URDS #### [address] NRBC% 0.1 /100{WBC} Normal 0-0.5 [facility] Comment on above: Performed By: #### A DDONUAPLUSJORGECG, URDS #### [address] Platelet mean volume (Bld) [Entitic vol] 9.1 fL Normal 6.3-10.7 [facility] Comment on above: Performed By: #### A DDONUAPLUS UHCG, URDS #### [address] Platelets (Bld) [#/Vol] 191 10*3/uL Normal 150-450 [facility] Comment on above: Performed By: #### A DDONUAPLUS, UHCG, URDS #### [address] RBC (Bld) [#/Vol] 4.70 10*6/uL Normal 3.60-5.00 [facility] Comment on above: Performed By: #### A DDONUAPLUS UHCG, URDS #### [facility] [address] [place] [address] [place] WBC (Bld) [#/Vol] 8.3 10*3/uL Normal 3.8-11.6 [facility] Comment on above: Performed By: #### A DDONUAPLUS, UHCG, URDS #### [place] [address] [place] Creatine Kinaseon 11-24-2023 CK [Catalytic activity/Vol] 97 U/L Normal 30-223 [facility] Comment on above: Performed By: #### A DDONUAPLUS, UHCG, URDS #### [place] [address] [place] Dipstick and Microscopicon 0 11-24-2023 Appearance (U) Clear Normal Clear [facility] Comment on above: Order Comment: Name Collection Type:: Clean-Voided Midstream Performed By: #### A DDONUAPLUS, UHCG, URDS #### [place] [address] [place] Bacteria,Urine None Seen Normal None Seen [facility] Comment on above: Order Comment: Name Collection Type:: Clean-Voided Midstream Performed By: #### A DDONUAPLUS, UHCG, URDS #### [place] [address] [place] Bilirubin,Urine Negative Normal Negative [facility] Comment on above: Order Comment: Name Collection Type:: Clean-Voided Midstream Performed By: #### A DDONUAPLUS, UHCG, URDS #### [place] [address] [place] Color (U) Yellow Normal Yellow [facility] Comment on above: Order Comment: Name Collection Type:: Clean-Voided Midstream Performed By: #### A DDONUAPLUS, UHCG, URDS #### [place] [address] [place] Glucose Ql (U) Normal Normal Normal [facility] Comment on above: Order Comment: Name Collection Type:: Clean-Voided Midstream Performed By: #### A DDONUAPLUS, UHCG, URDS #### [place] [address] [place] Hyaline Casts,Urine 0-8 Normal 0-8 [facility] Comment on above: Order Comment: Name Collection Type:: Clean-Voided Midstream Performed By: #### A DDONUAPLUS, UHCG, URDS #### [address] Ketones Ql (U) Negative Normal Negative [facility] Comment on above: Order Comment: Name Collection Type:: Clean-Voided Midstream Performed By: #### A DDONUAPLUS, UHCG, URDS #### [address] Leukocyte esterase Test strip Ql (U) Negative Normal Negative [facility] Comment on above: Order Comment: Name Collection Type:: Clean-Voided Midstream Performed By: #### A DDONUAPLUS, UHCG, URDS #### [address] Nitrite,Urine Negative Normal Negative [facility] Comment on above: Order Comment: Name Collection Type:: Clean-Voided Midstream Performed By: #### A DDONUAPLUS, UHCG, URDS #### [address] Occult Blood,Urine 1+ High Negative [facility] Comment on above: Order Comment: Name Collection Type:: Clean-Voided Midstream Performed By: #### A DDONUAPLUS, UHCG, URDS #### [address] pH (U) 7.0 [pH] Normal 5.0-9.0 [facility] Comment on above: Order Comment: Name Collection Type:: Clean-Voided Midstream Performed By: #### A DDONUAPLUS, UHCG, URDS #### [address] Protein,Urine Negative Normal Negative [facility] Comment on above: Order Comment: Name Collection Type:: Clean-Voided Midstream Performed By: #### A DDONUAPLUS, UHCG, URDS #### [address] RBC,Urine 10-19 High 0-4 [facility] Comment on above: Order Comment: Name Collection Type:: Clean-Voided Midstream Performed By: #### A DDONUAPLUS, UHCG, URDS #### [address] Specificy [place],Urine 1.022 Normal 1.001-1.03 0 [facility] Comment on above: Order Comment: Name Collection Type:: Clean-Voided Midstream Performed By: #### A DDONUAPLUS, UHCG, URDS #### [address] Squamous Epithelial Cell,Urine 3-4 High 0-2 [facility] Comment on above: Order Comment: Name Collection Type:: Clean-Voided Midstream Performed By: #### A DDONUAPLUS, UHCG, URDS #### [address] Urobilinogen,Urine Normal Normal Normal [facility] Comment on above: Order Comment: Name Collection Type:: Clean-Voided Midstream Performed By: #### A DDONUAPLUS, UHCG, URDS #### [address] WBC,Urine 1-2 Normal 0-4 [facility] Comment on above: Order Comment: Name Collection Type:: Clean-Voided Midstream Performed By: #### A DDONUAPLUS, UHCG, URDS #### [address] ECG 12 lead ECGon 11-24-2023 ECG 12 lead ECG [facility] [address] Electrocardiograph Report Signed Patient: Leandra Fonseca MR#: [id number] 1238 : 1990 Acct:[id number] Age/Sex: 33 / F ADM Date: 11/24/23 Loc: ER Room: Type: [facility] ER Attending Dr: Ordering Provider: Jim [...] was found Confirmed by Jim Vega DO ([id number]) on 11/24/2023 9:23:04 AM Referred By: Electronically Signed By:Jim Vega DO Transcribed By: MUS Signed By Jim Vega DO 0923 Normal [facility] HCG,Urineon 11-24-2023 Beta HCG ( test) Ql (U) Negative Normal [facility] Comment on above: Order Comment: Name Collection Type:: Clean-Voided Midstream Result Comment: PERF ORMED BY: [place] [address] PATHOLOGIST [employer] MANAGER CLAU ZAVALA M.D. Performed By: #### A DDONUAPLUS, CG, URDS #### [facility] [address] [place], [place] [id number] [facility] Hepatic Panelon 11-24-2023 Albumin [Mass/Vol] 4.0 g/dL Normal 3.5-5.7 [facility] Comment on above: Performed By: #### A DDONUAPLUS, CG, URDS #### [facility] [address] [id number] [facility] Albumin/Globulin [Mass ratio] 1.4 {ratio} Normal [facility] Comment on above: Performed By: #### A DDONUAPLUS, CG, URDS #### [facility] [address] [id number] [facility] ALP [Catalytic activity/Vol] 42 U/L Normal 34-104 [facility] Comment on above: Performed By: #### A DDONUAPLUS, UHCG, URDS #### [address] ALT [Catalytic activity/Vol] 11 U/L Normal 7-52 [facility] Comment on above: Performed By: #### A DDONUAPLUS, UHCG, URDS #### [address] AST [Catalytic activity/Vol] 12 U/L Low 13-39 [facility] Comment on above: Performed By: #### A DDONUAPLUS, UHCG, URDS #### [address] Bilirubin [Mass/Vol] 0.4 mg/dL Normal 0.3-1.0 [facility] Comment on above: Performed By: #### A DDONUAPLUS, UHCG, URDS #### [address] Bilirubin,Indirect 0.3 mg/dL Normal [facility] Comment on above: Performed By: #### A DDONUAPLUS, UHCG, URDS #### [address] Bilirubin.indirect [Mass/Vol] 0.10 mg/dL Normal 0.03-0.18 [facility] Comment on above: Performed By: #### A DDONUAPLUS, UHCG, URDS #### [address] Globulin (S) [Mass/Vol] 2.9 g/dL Normal [facility] Comment on above: Performed By: #### A DDONUAPLUS, UHCG, URDS #### [address] Protein [Mass/Vol] 6.9 g/dL Normal 6.4-8.9 [facility] Comment on above: Performed By: #### A DDONUAPLUS, UHCG, URDS #### [address] [place] [address] [facility] Partial Thromboplastin Timeo n 11-24-2023 aPTT Coag (Bld) [Time] 30.8 s Normal 25.1-36.5 [facility] Comment on above: Result Comment: A he matocrit value greater than 55% may lead to inaccurate results in coagulation testing. Patients having hematocrit values >55% require a special collection tube for coagulation studies. Please contact the laboratory at [phone] for redraw instructions. PERFORMED BY: [place] [address] PATHOLOGIST [employer] MANAGER CLAU ZAVALA M.D. Performed By: #### A MYLES AVENDAÑO, URJOHN #### [address] Prothrombin Time INRon 11-23 INR Coag (PPP) [Relative time] 1.1 {INR} Normal [facility] Comment on above: [...] 3 - 4.5 Performed By: #### A DDONTINO, MYLES, URDS #### [address] PT Coag (PPP) [Time] 12.9 s Normal 9.0-12.9 [facility] Comment on above: Result Comment: A he matocrit value greater than 55% may lead to inaccurate results in coagulation testing. Patients having hematocrit values >55% require a special collection tube for coagulation studies. Please contact the laboratory at [phone] for redraw instructions. Performed By: #### A DDONUAJOSSE, JORGECG, URDS #### [place] [id number] [place] Troponin I High Sensitivityo n 11-24-2023 Troponin I High Sensitivity < 2.3 Normal 0.0-15.0 [facility] Comment on above: Result Comment: PERF ORMED BY: [place] [address] PATHOLOGIST [employer] MANAGER CLAU ZAVALA M.D. Performed By: #### A JAROCHO KATHERYN, URDS #### [place] [id number] [facility] XR chest 1V portableon 11-23 XR chest 1V portable [facility] Main [place] [address] [place] [address] XRay Report Signed Patient: Leandra Fonseca MR#: [id number] 1238 : 1990 Acct:[id number] Age/Sex: 33 / F ADM Date: 11/24/23 Loc: ER Room: Type: [facility] ER Attending Dr: Copies to: Jim [...] Michell Miller M.D.11/24/2023 11:32 AM Dictation Location: [place] [address] Transcribed By: [facility] 11/24/23 1132 Dictated By: Michell Miller MD 11/24/23 1131 Signed By: 11/24/23 1132 Normal [facility] Basic Metabolic Panelon 10-19 Anion gap [Moles/Vol] 11.0 mmol/L Normal 6.0-15.0 [facility] Comment on above: Performed By: #### A MYLES AVENDAÑO, URDS #### [address] Calcium [Mass/Vol] 8.6 mg/dL Normal 8.6-10.3 [facility] Comment on above: Performed By: #### A MYLES AVENDAÑO, URDS #### [facility] [address] Chloride [Moles/Vol] 107 mmol/L Normal 98-107 [facility] Comment on above: Performed By: #### A MYLES AVENDAÑO, URDS #### [address] CO2 [Moles/Vol] 22.9 mmol/L Normal 21.0-31.0 [facility] Comment on above: Performed By: #### A MYLES AVENDAÑO, URDS #### [address] Creatinine [Mass/Vol] 0.64 mg/dL Normal 0.60-1.20 [facility] Comment on above: Performed By: #### A MYLES AVENDAÑO, URDS #### [place] [address] [place] Creatinine Clr Calc Pharmacy 124.50 Normal [facility] Comment on above: Performed By: #### A MYLES AVENDAÑO, URDS #### [place] [address] [place] GFR/1.73 sq M.predicted MDRD (S/P/Bld) [Vol rate/Area] mL/min/{1.73_m2} Normal [facility] Comment on above: Performed By: #### A ÓSCARUAESDRAS LOAIZAG, URDS #### [address] Glucose [Mass/Vol] 94 mg/dL Normal 70-100 [facility] Comment on above: Result Comment: [place] Glucose Reference Range is dependent on time and content of last meal. Glucose of more than 200 mg/dL in a nonstressed, ambulatory subject supports the diagnosis of Diabetes Mellitus. ADA recommended reference range Performed By: #### A DDONUAJORGE LOAIZACG, URDS #### [facility] [address] [place] [address] Potassium [Moles/Vol] 3.9 mmol/L Normal 3.5-5.1 [facility] Comment on above: Performed By: #### A ÓSCARUAJOSSE, ESDRASG, URDS #### [address] Sodium [Moles/Vol] 137 mmol/L Normal 136-145 [facility] Comment on above: Performed By: #### A DDONUAPLUS, UHCG, URDS #### [address] Urea nitrogen [Mass/Vol] 12 mg/dL Normal 7-25 [facility] Comment on above: Performed By: #### A DDONUAPLUS, UHCG, URDS #### [address] abdomen pelvis w conon CT abdomen pelvis w [facility] Main [place] [address] [place] [address] CT Scan Report Signed Patient: Leandra Fonseca MR#: [id number] 1238 : 1990 Acct:[id number] Age/Sex: 33 / F ADM Date: 11/13/23 Loc: ER Room: Type: [facility] ER Attending Dr: Copies to: Frank Silva [...] Rebecca Ybarra M.D.11/13/2023 10:47 AM Dictation Location: [place] [address] Transcribed By: [facility] 11/13/23 1047 Dictated By: Rebecca Ybarra II, MD 11/13/23 1036 Signed By: 11/13/23 1047 Normal [facility] Complete Blood Count Auto Di ffon 11-13-2023 Basophils (Bld) [#/Vol] 0.1 10*3/uL Normal 0.0-0.2 The [facility] Comment on above: Result Comment: PERF ORMED BY: [address] [address] PATHOLOGIST [employer] MANA[employer] CLAU ZAVALA M.D. Performed By: #### P T, CBC, HEPATIC, PTT, BMP, LIPASE #### [address] Basophils/100 WBC (Bld) 0.7 % Normal . [facility] Comment on above: Performed By: #### P T, CBC, HEPATIC, PTT, BMP, LIPASE #### [address] Eosinophils (Bld) [#/Vol] 0.1 10*3/uL Normal 0.0-0.45 [facility] Comment on above: Performed By: #### P T, CBC, HEPATIC, PTT, BMP, LIPASE #### [address] Eosinophils/100 WBC (Bld) 1.5 % Normal . [facility] Comment on above: Performed By: #### P T, CBC, HEPATIC, PTT, BMP, LIPASE #### [address] Erythrocyte distribution width (RBC) [Ratio] 14.6 % Normal 11.9-15.3 [facility] Comment on above: Performed By: #### P T, CBC, HEPATIC, PTT, BMP, LIPASE #### [address] Hematocrit (Bld) [Volume fraction] 34.1 % Normal 34.0-46.4 [facility] Comment on above: Performed By: #### P T, CBC, HEPATIC, PTT, BMP, LIPASE #### [address] Hemoglobin (Bld) [Mass/Vol] 10.9 g/dL Low 11.8-15.4 [facility] Comment on above: Performed By: #### P T, CBC, HEPATIC, PTT, BMP, LIPASE #### [address] Lymphocytes (Bld) [#/Vol] 1.9 10*3/uL Normal 1.00-4.8 [facility] Comment on above: Performed By: #### P T, CBC, HEPATIC, PTT, BMP, LIPASE #### [address] Lymphocytes/100 WBC (Bld) 23.7 % Normal . [facility] Comment on above: Performed By: #### P T, CBC, HEPATIC, PTT, BMP, LIPASE #### [address] MCH (RBC) [Entitic mass] 23.7 pg Low 24.7-34.3 [facility] Comment on above: Performed By: #### P T, CBC, HEPATIC, PTT, BMP, LIPASE #### [address] MCV (RBC) [Entitic vol] 74.1 fL Low 80-100 [facility] Comment on above: Performed By: #### P T, CBC, HEPATIC, PTT, BMP, LIPASE #### [address] Mean Corpuscular HGB Conc 31.9 g/dL Low 32.0-35.0 [facility] Comment on above: Performed By: #### P T, CBC, HEPATIC, PTT, BMP, LIPASE #### [address] Monocytes (Bld) [#/Vol] 0.5 10*3/uL Normal 0.0-0.8 [facility] Comment on above: Performed By: #### P T, CBC, HEPATIC, PTT, BMP, LIPASE #### [address] Monocytes/100 WBC (Bld) 18.59 % Normal 0.00-20.00 [facility] Comment on above: Performed By: #### P T, CBC, HEPATIC, PTT, BMP, LIPASE #### [address] Monocytes/100 WBC (Bld) 6.9 % Normal . [facility] Comment on above: Performed By: #### P T, CBC, HEPATIC, PTT, BMP, LIPASE #### [address] Neutrophils (Bld) [#/Vol] 5.3 10*3/uL Normal 1.8-7.7 [facility] Comment on above: Performed By: #### P T, CBC, HEPATIC, PTT, BMP, LIPASE #### [address] Neutrophils/100 WBC (Bld) 67.2 % Normal . [facility] Comment on above: Performed By: #### P T, CBC, HEPATIC, PTT, BMP, LIPASE #### [address] NRBC% 0.1 /100{WBC} Normal 0-0.5 [facility] Comment on above: Performed By: #### P T, CBC, HEPATIC, PTT, BMP, LIPASE #### [address] Platelet mean volume (Bld) [Entitic vol] 9.2 fL Normal 6.3-10.7 [facility] Comment on above: Performed By: #### P T, CBC, HEPATIC, PTT, BMP, LIPASE #### [address] Platelets (Bld) [#/Vol] 199 10*3/uL Normal 150-450 [facility] Comment on above: Performed By: #### P T, CBC, HEPATIC, PTT, BMP, LIPASE #### [address] RBC (Bld) [#/Vol] 4.60 10*6/uL Normal 3.60-5.00 [facility] Comment on above: Performed By: #### P T, CBC, HEPATIC, PTT, BMP, LIPASE #### [address] WBC (Bld) [#/Vol] 7.9 10*3/uL Normal 3.8-11.6 [facility] Comment on above: Performed By: #### P T, CBC, HEPATIC, PTT, BMP, LIPASE #### [address] Dipstick and Microscopicon 0 11-13-2023 Appearance (U) Clear Normal Clear [facility] Comment on above: Order Comment: Name Collection Type:: Clean-Voided Midstream Performed By: #### E NATALIE, CBC, CMP #### [address] Bacteria,Urine None Seen Normal None Seen [facility] Comment on above: Order Comment: Name Collection Type:: Clean-Voided Midstream Performed By: #### E NATALIE, CBC, CMP #### [address] Bilirubin,Urine Negative Normal Negative [facility] Comment on above: Order Comment: Name Collection Type:: Clean-Voided Midstream Performed By: #### E NATALIE, CBC, CMP #### [address] Color (U) Yellow Normal Yellow [facility] Comment on above: Order Comment: Name Collection Type:: Clean-Voided Midstream Performed By: #### E NATALIE, CBC, CMP #### [address] Glucose Ql (U) Normal Normal Normal [facility] Comment on above: Order Comment: Name Collection Type:: Clean-Voided Midstream Performed By: #### E NATALIE, CBC, CMP #### [address] Hyaline Casts,Urine None Seen Normal 0-8 [facility] Comment on above: Order Comment: Name Collection Type:: Clean-Voided Midstream Performed By: #### E NATALIE, CBC, CMP #### [address] Ketones Ql (U) Negative Normal Negative [facility] Comment on above: Order Comment: Name Collection Type:: Clean-Voided Midstream Performed By: #### E NATALIE, CBC, CMP #### [address] Leukocyte esterase Test strip Ql (U) Negative Normal Negative [facility] Comment on above: Order Comment: Name Collection Type:: Clean-Voided Midstream Performed By: #### E NATALIE, CBC, CMP #### [place] [address] [place] Nitrite,Urine Negative Normal Negative [facility] Comment on above: Order Comment: Name Collection Type:: Clean-Voided Midstream Performed By: #### E NATALIE, CBC, CMP #### [address] Occult Blood,Urine 1+ High Negative [facility] Comment on above: Order Comment: Name Collection Type:: Clean-Voided Midstream Performed By: #### E NATALIE, CBC, CMP #### [address] pH (U) 6.5 [pH] Normal 5.0-9.0 [facility] Comment on above: Order Comment: Name Collection Type:: Clean-Voided Midstream Performed By: #### E NATALIE, CBC, CMP #### [address] Protein,Urine Negative Normal Negative [facility] Comment on above: Order Comment: Name Collection Type:: Clean-Voided Midstream Performed By: #### E NATALIE, CBC, CMP #### [address] RBC,Urine 5-9 High 0-4 [facility] Comment on above: Order Comment: Name Collection Type:: Clean-Voided Midstream Performed By: #### E NATALIE, CBC, CMP #### [address] Specificy [place],Urine 1.011 Normal 1.001-1.03 0 [facility] Comment on above: Order Comment: Name Collection Type:: Clean-Voided Midstream Performed By: #### E NATALIE, CBC, CMP #### [place] [address] [place] Squamous Epithelial Cell,Urine None Seen Normal 0-2 [facility] Comment on above: Order Comment: Name Collection Type:: Clean-Voided Midstream Performed By: #### E NATALIE, CBC, CMP #### [address] Urobilinogen,Urine Normal Normal Normal [facility] Comment on above: Order Comment: Name Collection Type:: Clean-Voided Midstream Performed By: #### E NATALIE, CBC, CMP #### [address] WBC LM.HPF (Urine sed) [#/Area] 0 /[HPF] Normal 0-4 [facility] Comment on above: Order Comment: Name Collection Type:: Clean-Voided Midstream Performed By: #### E NATALIE, CBC, CMP #### [address] HCG,Urineon 11-13-2023 Beta HCG ( test) Ql (U) Negative Normal [facility] Comment on above: Order Comment: Name Collection Type:: Clean-Voided Midstream Result Comment: PERF ORMED BY: [place] [address] PATHOLOGIST [employer] MANAGER CLAU ZAVALA M.D. Performed By: #### E NATALIE, CBC, CMP #### [address] Hepatic Panelon 11-13-2023 Albumin [Mass/Vol] 4.1 g/dL Normal 3.5-5.7 [facility] Comment on above: Performed By: #### P T, CBC, HEPATIC, PTT, BMP, LIPASE #### [address] Albumin/Globulin [Mass ratio] 1.5 {ratio} Normal [facility] Comment on above: Performed By: #### P T, CBC, HEPATIC, PTT, BMP, LIPASE #### [address] ALP [Catalytic activity/Vol] 39 U/L Normal 34-104 [facility] Comment on above: Performed By: #### P T, CBC, HEPATIC, PTT, BMP, LIPASE #### [address] ALT [Catalytic activity/Vol] 10 U/L Normal 7-52 [facility] Comment on above: Performed By: #### P T, CBC, HEPATIC, PTT, BMP, LIPASE #### [address] AST [Catalytic activity/Vol] 12 U/L Low 13-39 [facility] Comment on above: Performed By: #### P T, CBC, HEPATIC, PTT, BMP, LIPASE #### [address] Bilirubin [Mass/Vol] 0.4 mg/dL Normal 0.3-1.0 [facility] Comment on above: Performed By: #### P T, CBC, HEPATIC, PTT, BMP, LIPASE #### [address] Bilirubin,Indirect 0.3 mg/dL Normal [facility] Comment on above: Performed By: #### P T, CBC, HEPATIC, PTT, BMP, LIPASE #### [address] Bilirubin.indirect [Mass/Vol] 0.10 mg/dL Normal 0.03-0.18 [facility] Comment on above: Performed By: #### P T, CBC, HEPATIC, PTT, BMP, LIPASE #### [address] Globulin (S) [Mass/Vol] 2.8 g/dL Normal [facility] Comment on above: Performed By: #### P T, CBC, HEPATIC, PTT, BMP, LIPASE #### [address] Protein [Mass/Vol] 6.9 g/dL Normal 6.4-8.9 [facility] Comment on above: Performed By: #### P T, CBC, HEPATIC, PTT, BMP, LIPASE #### [address] Lipaseon 11-13-2023 Lipase [Catalytic activity/Vol] 39.0 U/L Normal 11.0-82.0 [facility] Comment on above: Result Comment: PERF ORMED BY: [place] [address] PATHOLOGIST [employer] MANAGER CLAU ZAVALA M.D. Performed By: #### A MYLES AVEDNAÑO, URDS #### [place] [id number] [facility] Partial Thromboplastin Timeo n 11-13-2023 aPTT Coag (Bld) [Time] 29.8 s Normal 25.1-36.5 Th e [facility] Comment on above: Result Comment: A he matocrit value greater than 55% may lead to inaccurate results in coagulation testing. Patients having hematocrit values >55% require a special collection tube for coagulation studies. Please contact the laboratory at [phone] for redraw instructions. PERFORMED BY: [address] [address] PATHOLOGIST [employer] MARKET MANAGER CLAU ZAVALA M.D. Performed By: #### A MYLES AVENDAÑO, URDS #### [place] [id number] [place] Prothrombin Time INRon 11-13 INR Coag (PPP) [Relative time] 1.0 {INR} Normal [facility] Comment on above: [...] 3 - 4.5 Performed By: #### A MYLES AVENDAÑO, URDS #### [place] [id number] [facility] PT Coag (PPP) [Time] 12.0 s Normal 9.0-12.9 [facility] Comment on above: Result Comment: A he matocrit value greater than 55% may lead to inaccurate results in coagulation testing. Patients having hematocrit values >55% require a special collection tube for coagulation studies. Please contact the laboratory at [phone] for redraw instructions. Performed By: #### A DDONUAMYLES LOAIZA, URDS #### [facility] [address] [place] [id number] [facility] Physician Referralon 024 Physician Referral [id number] Normal [facility] Alanine aminotransferase [En zymatic activity/volume] in Serum or PlasmaOrdered By: Kelly Hough on 09-27-2023 ALT [Catalytic activity/Vol] 9 U/L 7-52 [facility] Albumin [Mass/volume] in Ser um or Plasma by Bromocresol green (BCG) dye binding methoOrdered By: Kelly Hough on 09-27-2023 Albumin BCG dye [Mass/Vol] 4.3 g/dL 3.5-5.7 [facility] Alkaline phosphatase [Enzyma tic activity/volume] in Serum or PlasmaOrdered By: Kelly Hough on 09-27-2023 ALP [Catalytic activity/Vol] 41 U/L 34-104 [facility] Aspartate aminotransferase [ Enzymatic activity/volume] in Serum or PlasmaOrdered By: Kelly Hough on 09-27-2023 AST [Catalytic activity/Vol] 10 U/L 13-39 [facility] Basophils Auto (Bld) [#/Vol] Ordered By: Kelly Hough on 09-27-2023 Basophils (Bld) [#/Vol] 0.0 10*3/uL 0.0-0.2 [facility] Basophils/100 WBC Auto (Bld) Ordered By: Kelly Hough on 09-27-2023 Basophils/100 WBC (Bld) 0.3 % . [facility] Bilirubin.total [Mass/volume ] in Serum or PlasmaOrdered By: Kelly Hough on 09-27-2023 Bilirubin [Mass/Vol] 0.7 mg/dL 0.3-1.0 [facility] Calcium [Mass/volume] in Ser um or PlasmaOrdered By: Kelly Hough on 09-27-2023 Calcium [Mass/Vol] 9.0 mg/dL 8.6-10.3 [facility] Carbon dioxide, total [Moles /volume] in Serum or PlasmaOrdered By: Kelly Hough on 09-27-2023 CO2 [Moles/Vol] 29.3 mmol/L 21.0-31.0 [facility] Chloride [Moles/volume] in S salas or PlasmaOrdered By: Kelly Hough on 09-27-2023 Chloride [Moles/Vol] 107 mmol/L 98-107 [facility] Creatinine [Mass/volume] in Serum or PlasmaOrdered By: Kelly Hough on 09-27-2023 Creatinine [Mass/Vol] 0.72 mg/dL 0.60-1.20 [facility] Eosinophils Auto (Bld) [#/Vo l]Ordered By: Kelly Hough on 09-27-2023 Eosinophils (Bld) [#/Vol] 0.1 10*3/uL 0.0-0.45 [facility] Eosinophils/100 WBC Auto (Bl d)Ordered By: Kelly Hough on 09-27-2023 Eosinophils/100 WBC (Bld) 0.8 % . [facility] Erythrocyte distribution wid th Auto (RBC) [Ratio]Ordered By: Kelly Hough on 09-27-2023 Erythrocyte distribution width (RBC) [Ratio] 13.7 % 11.9-15.3 [facility] Ferritin [Mass/volume] in Se rum or PlasmaOrdered By: Kelly Hough on 09-27-2023 Ferritin [Mass/Vol] 171.3 ng/mL 11.0-306.8 [facility] Folate [Mass/volume] in Seru m or PlasmaOrdered By: Kelly Hough on 09-27-2023 Folate [Mass/Vol] 5.5 ng/mL >5.9 [facility] Comment on above: Folate reference ran ge: >5.9 ng/mlThe WHO technical consultation on folate and vitamin [id number] has determined that folate concentrations lessthan 4 ng/ml are considered deficient. Globulin Calc (S) [Mass/Vol] Ordered By: Kelly Hough on 09-27-2023 Globulin (S) [Mass/Vol] 2.5 g/dL [facility] Glucose [Mass/volume] in Ser um or PlasmaOrdered By: Kelly Hough on 09-27-2023 Glucose [Mass/Vol] 113 mg/dL 70-100 [facility] Comment on above: ADA recommended refe rence rangeRandom Glucose Reference Range is dependent on time and content of last meal. Glucose of more than 200 mg/dL in a nonstressed, ambulatory subject supports the diagnosis of Diabetes Mellitus. HIV 1 and HIV-2 antibody ass ay with HIV-1 p24 antigen detectionOrdered By: Yudelka Lopez on 09-27-2023 HIV 1+2 Ab+HIV1 p24 Ag IA Ql Non-Reactive Non Reactive [facility] Comment on above: HIV NegativeHIV-1/HI V-2 antibodies and HIV-1 p24 antigen were NOTdetected. There is no laboratory evidence of HIV infection.Performed at: [facility] [id number] Director: Alan Macias PhD, Phone: [phone] Hematocrit Auto (Bld) [Volum e fraction]Ordered By: Kelly Hough on 09-27-2023 Hematocrit (Bld) [Volume fraction] 34.8 % 34.0-46.4 [facility] Hemoglobin [Mass/volume] in BloodOrdered By: Kelly Hough on 09-27-2023 Hemoglobin (Bld) [Mass/Vol] 11.0 g/dL 11.8-15.4 [facility] Iron [Mass/volume] in Serum or PlasmaOrdered By: Kelly Hough on 09-27-2023 Iron [Mass/Vol] 59 ug/dL 50-212 [facility] Iron binding capacity [Mass/ volume] in Serum or PlasmaOrdered By: Kelly Hough on 09-27-2023 Iron binding capacity [Mass/Vol] 231 ug/dL 255-450 [facility] Iron saturation [Mass Fracti on] in Serum or PlasmaOrdered By: Kelly Hough on 09-27-2023 Iron saturation [Mass fraction] 25.5 % 20-50 [facility] Leukocytes [#/volume] correc delmer for nucleated erythrocytes in Blood by Automated counOrdered By: Kelly Hough on 09-27-2023 WBC corrected for nucl RBC Auto (Bld) [#/Vol] 8.3 10*3/uL 3.8-11.6 [facility] Lymphocytes Auto (Bld) [#/Vo l]Ordered By: Kelly Hough on 09-27-2023 Lymphocytes (Bld) [#/Vol] 2.1 10*3/uL 1.00-4.8 [facility] Lymphocytes/100 WBC Auto (Bl d)Ordered By: Kelly Hough on 09-27-2023 Lymphocytes/100 WBC (Bld) 24.7 % . [facility] MCH Auto (RBC) [Entitic mass ]Ordered By: Kelly Hough on 09-27-2023 MCH (RBC) [Entitic mass] 23.5 pg 24.7-34.3 [facility] MCHC Auto (RBC) [Mass/Vol]Or dered By: Kelly Hough on 09-27-2023 MCHC (RBC) [Mass/Vol] 31.6 g/dL 32.0-35.0 [facility] MCV Auto (RBC) [Entitic vol] Ordered By: Kelly Hough on 09-27-2023 MCV (RBC) [Entitic vol] 74.4 fL 80-100 [facility] Monocytes Auto (Bld) [#/Vol] Ordered By: Kelly Hough on 09-27-2023 Monocytes (Bld) [#/Vol] 0.4 10*3/uL 0.0-0.8 [facility] Monocytes/100 WBC Auto (Bld) Ordered By: Kelly Hough on 09-27-2023 Monocytes/100 WBC (Bld) 5.3 % . [facility] Neutrophils Auto (Bld) [#/Vo l]Ordered By: Kelly Hough on 09-27-2023 Neutrophils (Bld) [#/Vol] 5.8 10*3/uL 1.8-7.7 [facility] Neutrophils/100 WBC Auto (Bl d)Ordered By: Kelly Hough on 09-27-2023 Neutrophils/100 WBC (Bld) 68.9 % . [facility] No Panel InformationOrdered By: Kelly Hough on 09-27-2023 Estimated GFR (CKD-EPI) > 60.0 mL/Min [facility] Creatinine Clearance (Chem 105.57 [facility] Nucleated erythrocytes [Pres ence] in Blood by Automated countOrdered By: Kelly Hough on 09-27-2023 Nucleated RBC Auto Ql (Bld) 0.1 /100{WBC} 0-0.5 [facility] Platelet mean volume Auto (B ld) [Entitic vol]Ordered By: Kelly Hough on 09-27-2023 Platelet mean volume (Bld) [Entitic vol] 9.3 fL 6.3-10.7 [facility] Platelets Auto (Bld) [#/Vol] Ordered By: Kelly Hough on 09-27-2023 Platelets (Bld) [#/Vol] 197 10*3/uL 150-450 [facility] Potassium [Moles/volume] in Serum or PlasmaOrdered By: Kelly Hough on 09-27-2023 Potassium [Moles/Vol] 3.4 mmol/L 3.5-5.1 [facility] Protein [Mass/volume] in Ser um or PlasmaOrdered By: Klely Hough on 09-27-2023 Protein [Mass/Vol] 6.8 g/dL 6.4-8.9 [facility] RBC Auto (Bld) [#/Vol]Ordere d By: Kelly Hough on 09-27-2023 RBC (Bld) [#/Vol] 4.68 10*6/uL 3.60-5.00 [facility] Reagin Ab [Presence] in Seru m by RPROrdered By: Yudelka Lopez on 09-27-2023 Reagin Ab RPR Ql (S) Non-Reactive Non Reactive [facility] Comment on above: Performed at: [address] [id number] Director: Alan Macias PhD, Phone: [phone] Serum or plasma albumin/glob ulin mass ratioOrdered By: Kelly Hough on 09-27-2023 Albumin/Globulin [Mass ratio] 1.7 {ratio} [facility] Serum or plasma anion gap de terminationOrdered By: Kelly Hough on 09-27-2023 Anion gap [Moles/Vol] 7.1 mmol/L 6.0-15.0 [facility] Sodium [Moles/volume] in Ser um or PlasmaOrdered By: Kelly Hough on 09-27-2023 Sodium [Moles/Vol] 140 mmol/L 136-145 [facility] Transferrin [Mass/volume] in Serum or PlasmaOrdered By: Kelly Hough on 09-27-2023 Transferrin [Mass/Vol] 165 mg/dL 203-362 [facility] Urea nitrogen [Mass/volume] in Serum or PlasmaOrdered By: Kelly Hough on 09-27-2023 Urea nitrogen [Mass/Vol] 10 mg/dL 7-25 [facility] Vitamin B12 ser/plasOrdered By: Kelly Hough on 09-27-2023 Cobalamin (Vitamin B12) [Mass/Vol] 446 pg/mL 180-4 [facility] Cobalamin (Vitamin B12) [Mass/Vol] Vitamin B12 ser/plas 180-914 [facility] WBC Auto (Bld) [#/Vol]Ordere d By: Kelly Hough on 09-27-2023 WBC (Bld) [#/Vol] 8.3 10*3/uL 3.8-11.6 [facility] Absolute reticulocyte countO rdered By: Kelly Hough on 06-27-2023 Reticulocytes (Bld) [#/Vol] 0.066 10*6/uL 0.024-0.08 4 [facility] Reticulocytes (Bld) [#/Vol] Absolute reticulocyte count 0.024-0.08 4 [facility] Basophil percentageOrdered B y: Kelly Hough on 06-27-2023 Basophil percentage Basophil percentage 80-158 [facility] Comment on above: This test was develo ped and its performance characteristicsdetermined by [employer]. It has not been cleared orapproved by the Food and Drug Administration. Detection Limit = 5Performed at: [address] [id number] Director: Artemio Guillen MD, Phone: [phone] Haptoglobin [Mass/volume] in Serum or PlasmaOrdered By: Kelly Ryannemesio on 06-27-2023 Haptoglobin [Mass/Vol] 184 mg/dL 44-215 [facility] Haptoglobin [Mass/Vol] Haptoglobin [Mass /volume] in Serum or Plasma 44-215 [facility] Lactate dehydrogenase [Enzym atic activity/volume] in Serum or Plasma by Lactate to pyOrdered By: Kelly Hough on 06-27-2023 LDH Lactate to pyruvate reaction [Catalytic activity/Vol] 137 U/L 140-271 [facility] LDH Lactate to pyruvate reaction [Catalytic activity/Vol] Lactate dehydrogenase [Enzymatic activity/volume] in Serum or Plasma by Lactate to py Low 140-271 [facility] Monocyte %Ordered By: Kelly amaya on 06-27-2023 Monocyte % 145 ug/dL 80-158 [facility] Comment on above: This test was develo ped and its performance characteristicsdetermined by [employer]. It has not been cleared orapproved by the Food and Drug Administration. Detection Limit = 5Performed at: [facility] [employer] [id number] Director: Artemio Guillen MD, Phone: [phone] Reticulocytes/100 RBC Auto ( Bld)Ordered By: Kelly Hough on 06-27-2023 Reticulocytes/100 RBC (Bld) 1.4 % 0.5-1.5 [facility] Reticulocytes/100 RBC (Bld) Reticulocyte % auto 0.5-1.5 [facility] Alanine aminotransferase [En zymatic activity/volume] in Serum or PlasmaOrdered By: Kelly Hough on 06-14-2023 ALT [Catalytic activity/Vol] 13 U/L 7-52 [facility] Albumin [Mass/volume] in Ser um or Plasma by Bromocresol green (BCG) dye binding methoOrdered By: Kelly Hough on 06-14-2023 Albumin BCG dye [Mass/Vol] 3.8 g/dL 3.5-5.7 [facility] Alkaline phosphatase [Enzyma tic activity/volume] in Serum or PlasmaOrdered By: Kelly Hough on 06-14-2023 ALP [Catalytic activity/Vol] 33 U/L 34-104 [facility] Aspartate aminotransferase [ Enzymatic activity/volume] in Serum or PlasmaOrdered By: Kelly Hough on 06-14-2023 AST [Catalytic activity/Vol] 10 U/L 13-39 [facility] Basophils Auto (Bld) [#/Vol] Ordered By: Kelly Hough on 06-14-2023 Basophils (Bld) [#/Vol] 0.0 10*3/uL 0.0-0.2 [facility] Basophils/100 WBC Auto (Bld) Ordered By: Kelly Hough on 06-14-2023 Basophils/100 WBC (Bld) 0.4 % . [facility] Bilirubin.total [Mass/volume ] in Serum or PlasmaOrdered By: Kelly Hough on 06-14-2023 Bilirubin [Mass/Vol] 0.4 mg/dL 0.3-1.0 [facility] Calcium [Mass/volume] in Ser um or PlasmaOrdered By: Kelly Hough on 06-14-2023 Calcium [Mass/Vol] 8.8 mg/dL 8.6-10.3 [facility] Carbon dioxide, total [Moles /volume] in Serum or PlasmaOrdered By: Kelly Hough on 06-14-2023 CO2 [Moles/Vol] 28.5 mmol/L 21.0-31.0 [facility] Chloride [Moles/volume] in S salas or PlasmaOrdered By: Kelly Hough on 06-14-2023 Chloride [Moles/Vol] 104 mmol/L 98-107 [facility] Creatinine [Mass/volume] in Serum or PlasmaOrdered By: Kelly Hough on 06-14-2023 Creatinine [Mass/Vol] 0.82 mg/dL 0.60-1.20 [facility] Eosinophils Auto (Bld) [#/Vo l]Ordered By: Kelly Hough on 06-14-2023 Eosinophils (Bld) [#/Vol] 0.2 10*3/uL 0.0-0.45 [facility] Eosinophils/100 WBC Auto (Bl d)Ordered By: Kelly Hough on 06-14-2023 Eosinophils/100 WBC (Bld) 1.9 % . [facility] Erythrocyte distribution wid th Auto (RBC) [Ratio]Ordered By: Kelly Hough on 06-14-2023 Erythrocyte distribution width (RBC) [Ratio] 13.9 % 11.9-15.3 [facility] Ferritin [Mass/volume] in Se rum or PlasmaOrdered By: Kelly Hough on 06-14-2023 Ferritin [Mass/Vol] 146.0 ng/mL 11.0-306.8 [facility] Globulin Calc (S) [Mass/Vol] Ordered By: Kelly Hough on 06-14-2023 Globulin (S) [Mass/Vol] 2.0 g/dL [facility] Glucose [Mass/volume] in Ser um or PlasmaOrdered By: Kelly Hough on 06-14-2023 Glucose [Mass/Vol] 86 mg/dL 70-100 [facility] Comment on above: ADA recommended refe rence rangeRandom Glucose Reference Range is dependent on time and content of last meal. Glucose of more than 200 mg/dL in a nonstressed, ambulatory subject supports the diagnosis of Diabetes Mellitus. Hematocrit Auto (Bld) [Volum e fraction]Ordered By: Kelly Hough on 06-14-2023 Hematocrit (Bld) [Volume fraction] 32.4 % 34.0-46.4 [facility] Hemoglobin [Mass/volume] in BloodOrdered By: Kelly Hough on 06-14-2023 Hemoglobin (Bld) [Mass/Vol] 10.3 g/dL 11.8-15.4 [facility] Iron [Mass/volume] in Serum or PlasmaOrdered By: Kelly Hough on 06-14-2023 Iron [Mass/Vol] 62 ug/dL 50-212 [facility] Iron binding capacity [Mass/ volume] in Serum or PlasmaOrdered By: Kelly Hough on 06-14-2023 Iron binding capacity [Mass/Vol] 190 ug/dL 255-450 [facility] Iron saturation [Mass Fracti on] in Serum or PlasmaOrdered By: Kelly Hough on 06-14-2023 Iron saturation [Mass fraction] 32.6 % 20-50 [facility] Leukocytes [#/volume] correc delmer for nucleated erythrocytes in Blood by Automated counOrdered By: Kelly Hough on 06-14-2023 WBC corrected for nucl RBC Auto (Bld) [#/Vol] 8.4 10*3/uL 3.8-11.6 [facility] Lymphocytes Auto (Bld) [#/Vo l]Ordered By: Kelly Hough on 06-14-2023 Lymphocytes (Bld) [#/Vol] 2.6 10*3/uL 1.00-4.8 [facility] Lymphocytes/100 WBC Auto (Bl d)Ordered By: Kelly Hough on 06-14-2023 Lymphocytes/100 WBC (Bld) 31.3 % . [facility] MCH Auto (RBC) [Entitic mass ]Ordered By: Kelly Hough on 06-14-2023 MCH (RBC) [Entitic mass] 23.8 pg 24.7-34.3 [facility] MCHC Auto (RBC) [Mass/Vol]Or dered By: Kelly Hough on 06-14-2023 MCHC (RBC) [Mass/Vol] 31.7 g/dL 32.0-35.0 [facility] MCV Auto (RBC) [Entitic vol] Ordered By: Kelly Hough on 06-14-2023 MCV (RBC) [Entitic vol] 75.2 fL 80-100 [facility] Monocytes Auto (Bld) [#/Vol] Ordered By: Kelly Hough on 06-14-2023 Monocytes (Bld) [#/Vol] 0.5 10*3/uL 0.0-0.8 [facility] Monocytes/100 WBC Auto (Bld) Ordered By: Kelly Hough on 06-14-2023 Monocytes/100 WBC (Bld) 5.9 % . [facility] Neutrophils Auto (Bld) [#/Vo l]Ordered By: Kelly Hough on 06-14-2023 Neutrophils (Bld) [#/Vol] 5.1 10*3/uL 1.8-7.7 [facility] Neutrophils/100 WBC Auto (Bl d)Ordered By: Kelly Hough on 06-14-2023 Neutrophils/100 WBC (Bld) 60.5 % . [facility] No Panel InformationOrdered By: Kelly Hough on 06-14-2023 Estimated GFR (CKD-EPI) > 60.0 mL/Min [facility] Creatinine Clearance (Chem 93.10 [facility] Nucleated erythrocytes [Pres ence] in Blood by Automated countOrdered By: Kelly Hough on 06-14-2023 Nucleated RBC Auto Ql (Bld) 0.1 /100{WBC} 0-0.5 [facility] Platelet mean volume Auto (B ld) [Entitic vol]Ordered By: Kelly Hough on 06-14-2023 Platelet mean volume (Bld) [Entitic vol] 9.6 fL 6.3-10.7 [facility] Platelets Auto (Bld) [#/Vol] Ordered By: Kelly Hough on 06-14-2023 Platelets (Bld) [#/Vol] 189 10*3/uL 150-450 [facility] Potassium [Moles/volume] in Serum or PlasmaOrdered By: Kelly Hough on 06-14-2023 Potassium [Moles/Vol] 4.1 mmol/L 3.5-5.1 [facility] Protein [Mass/volume] in Ser um or PlasmaOrdered By: Kelly Hough on 06-14-2023 Protein [Mass/Vol] 5.8 g/dL 6.4-8.9 [facility] RBC Auto (Bld) [#/Vol]Ordere d By: Kelly Hough on 06-14-2023 RBC (Bld) [#/Vol] 4.31 10*6/uL 3.60-5.00 [facility] Serum or plasma albumin/glob ulin mass ratioOrdered By: Kelly Hough on 06-14-2023 Albumin/Globulin [Mass ratio] 1.9 {ratio} [facility] Serum or plasma anion gap de terminationOrdered By: Kelly Hough on 06-14-2023 Anion gap [Moles/Vol] 10.6 mmol/L 6.0-15.0 [facility] Sodium [Moles/volume] in Ser um or PlasmaOrdered By: Kelly Hough on 06-14-2023 Sodium [Moles/Vol] 139 mmol/L 136-145 [facility] Thyrotropin [Units/volume] i n Serum or PlasmaOrdered By: Dayne Horton on 06-14-2023 TSH Qn 1.43 m[IU]/L 0.45-5.33 [facility] Thyroxine (T4) free [Mass/vo lume] in Serum or PlasmaOrdered By: Dayne Horton on 06-14-2023 Free T4 [Mass/Vol] 1.22 ng/dL 0.61-1.12 [facility] Transferrin [Mass/volume] in Serum or PlasmaOrdered By: Kelly Hough on 06-14-2023 Transferrin [Mass/Vol] 136 mg/dL 203-362 [facility] Triiodothyronine (T3) Free [ Mass/volume] in Serum or PlasmaOrdered By: Dayne Horton on 06-14-2023 Free T3 [Mass/Vol] 3.99 pg/mL 2.50-3.90 [facility] Urea nitrogen [Mass/volume] in Serum or PlasmaOrdered By: Kelly Hough on 06-14-2023 Urea nitrogen [Mass/Vol] 11 mg/dL 7-25 [facility] WBC Auto (Bld) [#/Vol]Ordere d By: Kelly Hough on 06-14-2023 WBC (Bld) [#/Vol] 8.4 10*3/uL 3.8-11.6 [facility] Provider Letteron 04-09-2023 Provider Letter (Inserted Image. Radha ble to display) April 09, 2023 LEANDRA FONSECA [address] [place] [id number] : 1990 Dear Leandra , We have been trying to reach you with no success. It is important that you return our call regarding your referral from Kelvin Draper upon receiving this letter. Also, at the time of your call, please provide us with your current information. Thank you for your prompt attention to this matter. Sincerely, General Surgery [facility] [phone] [facility] Lab Reportson 04-04-2023 Lab Reports [id number]:127 [facility] Physician Referralon 023 Physician Referral [id number]:127 [facility] Albumin [Mass/volume] in Ser um or PlasmaOrdered By: Kelly Hough on 03-21-2023 Albumin [Mass/Vol] 3.6 g/dL 2.9-4.4 [facility] Albumin [Mass/Vol] Albumin [Mass/volume ] in Serum or Plasma 2.9-4.4 [facility] IgA [Mass/volume] in Serum o r PlasmaOrdered By: Kelly Hough on 03-21-2023 IgA [Mass/Vol] 158 mg/dL 87-352 [facility] IgA [Mass/Vol] IgA [Mass/volume] in Serum or Plasma 87-352 [facility] IgG [Mass/volume] in Serum o r PlasmaOrdered By: Kelly Hough on 03-21-2023 IgG [Mass/Vol] 1046 mg/dL [phone] [facility] IgG [Mass/Vol] IgG [Mass/volume] in Serum or Plasma [phone] [facility] IgM [Mass/volume] in Serum o r PlasmaOrdered By: Kelly Hough on 03-21-2023 IgM [Mass/Vol] 302 mg/dL [address] [place] [address] Comment on above: Performed at: [facility] [place] [id number] Director: Alan Macias PhD, Phone: [phone] IgM [Mass/Vol] IgM [Mass/volume] in Serum or Plasma [facility] [address] [place] [address] Comment on above: Performed at: [facility] [place] [id number] Director: Alan Macias PhD, Phone: [phone] Immunoglobulin light chains. kappa.free [Mass/volume] in SerumOrdered By: Kelly Hough on 03-21-2023 Immunoglobulin light chains.kappa.free (S) [Mass/Vol] 19.2 mg/L 3.3-19.4 [facility] Immunoglobulin light chains.kappa.free (S) [Mass/Vol] Immunoglobulin light chains.kappa.free [Mass/volume] in Serum 3.3-19.4 [facility] Immunoglobulin light chains. kappa.free/Immunoglobulin light chains.lambda.free [MassOrdered By: Kelly Hough on 03-21-2023 Immunoglobulin light chains.kappa.free/Immu noglobulin light chains.lambda.free (S) [Mass ratio] 1.31 0.26-1.65 [facility] Comment on above: Performed at: [facility] [address] [id number] Director: Alan Macias PhD, Phone: [phone] Immunoglobulin light chains.kappa.free/Immu noglobulin light chains.lambda.free (S) [Mass ratio] Immunoglobulin light chains.kappa.free/Immunoglo bulin light chains.lambda.free [Mass 0.26-1.65 [facility] Comment on above: Performed at: [facility] [address] [id number] Director: Alan Macias PhD, Phone: [phone] Immunoglobulin light chains. lambda.free [Mass/volume] in Serum or PlasmaOrdered By: Kelly Hough on 03-21-2023 Immunoglobulin light chains.lambda.free [Mass/Vol] 14.7 mg/L 5.7-26.3 [facility] Immunoglobulin light chains.lambda.free [Mass/Vol] Immunoglobulin light chains.lambda.free [Mass/volume] in Serum or Plasma 5.7-26.3 [facility] No Panel InformationOrdered By: Kelly Hough on 03-21-2023 Protein Electrophoresis M-Emanuel Not observed g/dL Not Observed [facility] Protein Electrophoresis Note See comment . [facility] Comment on above: Protein electrophore sis scan will follow via computer,mail, or weight shifter delivery. Serum Immunofixation See comment . [facility] Comment on above: No monoclonality det ected. Slides for Pathologist Review Ordered path review [facility] Protein [Mass/volume] in Ser um or PlasmaOrdered By: Kelly Hough on 03-21-2023 Protein [Mass/Vol] 6.5 g/dL 6.0-8.5 [facility] Protein [Mass/Vol] Protein [Mass/volume ] in Serum or Plasma 6.0-8.5 [facility] Serum globulin measurement ( mass/volume)Ordered By: Kelly Hough on 03-21-2023 Globulin (S) [Mass/Vol] 2.9 g/dL 2.2-3.9 [facility] Globulin (S) [Mass/Vol] Serum globulin measurement (mass/volume) 2.2-3.9 [facility] Serum or plasma albumin/glob ulin mass ratioOrdered By: Kelly Hough on 03-21-2023 Albumin/Globulin [Mass ratio] 1.2 {ratio} 0.7-1.7 [facility] Albumin/Globulin [Mass ratio] Serum or plasma albumin/globulin mass ratio 0.7-1.7 [facility] Serum or plasma alpha 1 glob ulin measurement by electrophoresis (mass/volume)Ordered By: Kelly Hough on 03-21-2023 Alpha 1 globulin Elph [Mass/Vol] 0.3 g/dL 0.0-0.4 [facility] Alpha 1 globulin Elph [Mass/Vol] Serum or plasma alpha 1 globulin measurement by electrophoresis (mass/volume) 0.0-0.4 [facility] Serum or plasma alpha 2 glob ulin measurement by electrophoresis (mass/volume)Ordered By: Kelly Hough on 03-21-2023 Alpha 2 globulin Elph [Mass/Vol] 0.8 g/dL 0.4-1.0 [facility] Alpha 2 globulin Elph [Mass/Vol] Serum or plasma alpha 2 globulin measurement by electrophoresis (mass/volume) 0.4-1.0 [facility] Serum or plasma beta globuli n measurement by electrophoresis (mass/volume)Ordered By: Kelly Hough on 03-21-2023 Beta globulin Elph [Mass/Vol] 0.7 g/dL 0.7-1.3 [facility] Beta globulin Elph [Mass/Vol] Serum or plasma beta globulin measurement by electrophoresis (mass/volume) 0.7-1.3 [facility] Serum or plasma gamma globul in measurement by electrophoresis (mass/volume)Ordered By: Kelly Hough on 03-21-2023 Gamma globulin Elph [Mass/Vol] 1.1 g/dL 0.4-1.8 [facility] Gamma globulin Elph [Mass/Vol] Serum or plasma gamma globulin measurement by electrophoresis (mass/volume) 0.4-1.8 [facility] Alanine aminotransferase [En zymatic activity/volume] in Serum or PlasmaOrdered By: Jim Vgea on 02-06-2023 ALT [Catalytic activity/Vol] 10 U/L 7-52 [facility] Albumin [Mass/volume] in Ser um or Plasma by Bromocresol green (BCG) dye binding methoOrdered By: Jim Vega on 02-06-2023 Albumin BCG dye [Mass/Vol] 4.2 g/dL 3.5-5.7 [facility] Alkaline phosphatase [Enzyma tic activity/volume] in Serum or PlasmaOrdered By: Jim Vega on 02-06-2023 ALP [Catalytic activity/Vol] 45 U/L 34-104 [facility] Aspartate aminotransferase [ Enzymatic activity/volume] in Serum or PlasmaOrdered By: Jim Vega on 02-06-2023 AST [Catalytic activity/Vol] 12 U/L 13-39 [facility] Automated erythrocytes count in urine sediment (number/area)Ordered By: Jim Vega on 02-06-2023 RBC Auto (Urine sed) [#/Area] 5-9 [HPF] 0-4 [facility] Automated leukocytes count i n urine sediment (number/area)Ordered By: Jim Vega on 02-06-2023 WBC Auto (Urine sed) [#/Area] 3-4 [HPF] 0-4 [facility] Basophils Auto (Bld) [#/Vol] Ordered By: Jim Vega on 02-06-2023 Basophils (Bld) [#/Vol] 0.0 10*3/uL 0.0-0.2 [facility] Basophils/100 WBC Auto (Bld) Ordered By: Jim Vega on 02-06-2023 Basophils/100 WBC (Bld) 0.7 % . [facility] Bilirubin Test strip Ql (U)O rdered By: Jim Vgea on 02-06-2023 Bilirubin Ql (U) Negative Negative [facility] Bilirubin.total [Mass/volume ] in Serum or PlasmaOrdered By: Jim Vega on 02-06-2023 Bilirubin [Mass/Vol] 0.5 mg/dL 0.3-1.0 [facility] Calcium [Mass/volume] in Ser um or PlasmaOrdered By: Jim Vega on 02-06-2023 Calcium [Mass/Vol] 8.5 mg/dL 8.6-10.3 [facility] Carbon dioxide, total [Moles /volume] in Serum or PlasmaOrdered By: Jim Vega on 02-06-2023 CO2 [Moles/Vol] 26.0 mmol/L 21.0-31.0 [facility] Chloride [Moles/volume] in S salas or PlasmaOrdered By: Jim Vega on 02-06-2023 Chloride [Moles/Vol] 105 mmol/L 98-107 [facility] Color Auto (U)Ordered By: Narinder red Silvia on 02-06-2023 Color (U) Yellow Yellow [facility] Creatinine [Mass/volume] in Serum or PlasmaOrdered By: Jim Vega on 02-06-2023 Creatinine [Mass/Vol] 0.78 mg/dL 0.60-1.20 [facility] Eosinophils Auto (Bld) [#/Vo l]Ordered By: Jim Vega on 02-06-2023 Eosinophils (Bld) [#/Vol] 0.1 10*3/uL 0.0-0.45 [facility] Eosinophils/100 WBC Auto (Bl d)Ordered By: Jim Vega on 02-06-2023 Eosinophils/100 WBC (Bld) 2.2 % . [facility] Erythrocyte distribution wid th Auto (RBC) [Ratio]Ordered By: Jim Vega on 02-06-2023 Erythrocyte distribution width (RBC) [Ratio] 14.3 % 11.9-15.3 [facility] Globulin Calc (S) [Mass/Vol] Ordered By: Jim Vega on 02-06-2023 Globulin (S) [Mass/Vol] 3.0 g/dL [facility] Glucose [Mass/volume] in Ser um or PlasmaOrdered By: Jim Vega on 02-06-2023 Glucose [Mass/Vol] 92 mg/dL 70-100 [facility] Comment on above: ADA recommended refe rence rangeRandom Glucose Reference Range is dependent on time and content of last meal. Glucose of more than 200 mg/dL in a nonstressed, ambulatory subject supports the diagnosis of Diabetes Mellitus. HCG ( test) IA.rapi d Ql (U)Ordered By: Jim Vega on 02-06-2023 HCG ( test) Ql (U) Negative [facility] Hematocrit Auto (Bld) [Volum e fraction]Ordered By: Jim Vgea on 02-06-2023 Hematocrit (Bld) [Volume fraction] 35.2 % 34.0-46.4 [facility] Hemoglobin [Mass/volume] in BloodOrdered By: Jim Vega on 02-06-2023 Hemoglobin (Bld) [Mass/Vol] 11.0 g/dL 11.8-15.4 [facility] Ketones Auto test strip (U) [Mass/Vol]Ordered By: Jim Vega on 02-06-2023 Ketones (U) [Mass/Vol] Negative Negative [facility] - UrinalysisOrder ed By: Jim Vega on 02-06-2023 Hyaline casts LM Ql (Urine sed) 0-8 [LPF] 0-8 [facility] Leukocytes [#/volume] correc delmer for nucleated erythrocytes in Blood by Automated counOrdered By: Jim Vega on 02-06-2023 WBC corrected for nucl RBC Auto (Bld) [#/Vol] 5.3 10*3/uL 3.8-11.6 [facility] Lymphocytes Auto (Bld) [#/Vo l]Ordered By: Jim Vega on 02-06-2023 Lymphocytes (Bld) [#/Vol] 1.4 10*3/uL 1.00-4.8 [facility] Lymphocytes/100 WBC Auto (Bl d)Ordered By: Jim Vega on 02-06-2023 Lymphocytes/100 WBC (Bld) 25.8 % . [facility] MCH Auto (RBC) [Entitic mass ]Ordered By: Jim Vega on 02-06-2023 MCH (RBC) [Entitic mass] 22.8 pg 24.7-34.3 [facility] MCHC Auto (RBC) [Mass/Vol]Or dered By: Jim Vega on 02-06-2023 MCHC (RBC) [Mass/Vol] 31.1 g/dL 32.0-35.0 [facility] MCV Auto (RBC) [Entitic vol] Ordered By: Jim Vega on 02-06-2023 MCV (RBC) [Entitic vol] 73.2 fL 80-100 [facility] Monocyte distribution width [Entitic volume] in Blood by AutomatedOrdered By: Jim Vega on 02-06-2023 Monocyte distribution width Auto (Bld) [Entitic vol] 18.18 % 0.00-20.00 [facility] Monocytes Auto (Bld) [#/Vol] Ordered By: Jim Vega on 02-06-2023 Monocytes (Bld) [#/Vol] 0.4 10*3/uL 0.0-0.8 [facility] Monocytes/100 WBC Auto (Bld) Ordered By: Jim Vega on 02-06-2023 Monocytes/100 WBC (Bld) 7.1 % . [facility] Neutrophils Auto (Bld) [#/Vo l]Ordered By: Jim Vega on 02-06-2023 Neutrophils (Bld) [#/Vol] 3.4 10*3/uL 1.8-7.7 [facility] Neutrophils/100 WBC Auto (Bl d)Ordered By: Jim Vega on 02-06-2023 Neutrophils/100 WBC (Bld) 64.2 % . [facility] Nitrite Test strip Ql (U)Ord ered By: Jim Vega on 02-06-2023 Nitrite Ql (U) Negative Negative [facility] No Panel InformationOrdered By: Jim Vega on 02-06-2023 Estimated GFR (CKD-EPI) > 60.0 mL/Min [facility] Creatinine Clearance (Chem 100.96 [facility] Nucleated erythrocytes [Pres ence] in Blood by Automated countOrdered By: Jim Vega on 02-06-2023 Nucleated RBC Auto Ql (Bld) 0.1 /100{WBC} 0-0.5 [facility] Platelet mean volume Auto (B ld) [Entitic vol]Ordered By: Jim Vega on 02-06-2023 Platelet mean volume (Bld) [Entitic vol] 9.4 fL 6.3-10.7 [facility] Platelets Auto (Bld) [#/Vol] Ordered By: Jim Vega on 02-06-2023 Platelets (Bld) [#/Vol] 175 10*3/uL 150-450 [facility] Potassium [Moles/volume] in Serum or PlasmaOrdered By: Jim Vega on 02-06-2023 Potassium [Moles/Vol] 3.5 mmol/L 3.5-5.1 [facility] Protein Auto test strip (U) [Mass/Vol]Ordered By: Jim Vega on 02-06-2023 Protein (U) [Mass/Vol] Negative Negative [facility] Protein [Mass/volume] in Ser um or PlasmaOrdered By: Jim Vega on 02-06-2023 Protein [Mass/Vol] 7.2 g/dL 6.4-8.9 [facility] RBC Auto (Bld) [#/Vol]Ordere d By: Jim Vega on 02-06-2023 RBC (Bld) [#/Vol] 4.81 10*6/uL 3.60-5.00 [facility] Serum or plasma albumin/glob ulin mass ratioOrdered By: Jim Vega on 02-06-2023 Albumin/Globulin [Mass ratio] 1.4 {ratio} [facility] Serum or plasma anion gap de terminationOrdered By: Jim Vega on 02-06-2023 Anion gap [Moles/Vol] 9.5 mmol/L 6.0-15.0 [facility] Sodium [Moles/volume] in Ser um or PlasmaOrdered By: Jim Vega on 02-06-2023 Sodium [Moles/Vol] 137 mmol/L 136-145 [facility] Specific gravity Auto test s trip (U) [Rel density]Ordered By: Jim Vega on 02-06-2023 Specific gravity (U) [Rel density] 1.010 1.001-1.03 0 [facility] Squamous epithelial cells de tection in urine sediment by light microscopyOrdered By: Jim Vega on 02-06-2023 Epithelial cells.squamous LM Ql (Urine sed) 5-9 [HPF] 0-2 [facility] Urea nitrogen [Mass/volume] in Serum or PlasmaOrdered By: Jim Vega on 02-06-2023 Urea nitrogen [Mass/Vol] 11 mg/dL 7-25 [facility] Urine bacteria detection by automated methodOrdered By: Jim Vega on 02-06-2023 Bacteria Auto Ql (U) None seen None Seen [facility] Urine clarity by refractomet ry automatedOrdered By: Jim Vega on 02-06-2023 Clarity Refractometry automated (U) Clear Clear [facility] Urine glucose measurement by automated test strip (mass/volume)Ordered By: Jim Vega on 02-06-2023 Glucose Auto test strip (U) [Mass/Vol] Normal mg/dL Normal [facility] Urine hemoglobin detection b y automated test stripOrdered By: Jim Vega on 02-06-2023 Hemoglobin Auto test strip Ql (U) Trace Negative [facility] Urine leukocyte esterase det ection by automated test stripOrdered By: Jim Vega on 02-06-2023 Leukocyte esterase Auto test strip Ql (U) Negative Negative [facility] Urobilinogen Auto test strip (U) [Mass/Vol]Ordered By: Jim Vega on 02-06-2023 Urobilinogen (U) [Mass/Vol] Normal mg/dL Normal [facility] WBC Auto (Bld) [#/Vol]Ordere d By: Jim Vega on 02-06-2023 WBC (Bld) [#/Vol] 5.3 10*3/uL 3.8-11.6 [facility] pH Auto test strip (U)Ordere d By: Jim Vega on 02-06-2023 pH (U) 8.0 [pH] 5.0-9.0 [facility] Ferritin [Mass/volume] in Se rum or PlasmaOrdered By: Kelly Hough on 01-24-2023 Ferritin [Mass/Vol] 64.3 ng/mL 11.0-306.8 [facility] Iron [Mass/volume] in Serum or PlasmaOrdered By: Kelly Hough on 01-24-2023 Iron [Mass/Vol] 85 ug/dL 50-212 [facility] Iron binding capacity [Mass/ volume] in Serum or PlasmaOrdered By: Kelly Hough on 01-24-2023 Iron binding capacity [Mass/Vol] 227 ug/dL 255-450 [facility] Iron saturation [Mass Fracti on] in Serum or PlasmaOrdered By: Kelly Hough on 01-24-2023 Iron saturation [Mass fraction] 37.4 % 20-50 [facility] Transferrin [Mass/volume] in Serum or PlasmaOrdered By: Kelly Hough on 01-24-2023 Transferrin [Mass/Vol] 162 mg/dL 203-362 [facility] Basophils Auto (Bld) [#/Vol] Ordered By: Kelly Hough on 12-25-2022 Basophils (Bld) [#/Vol] 0.0 10*3/uL 0.0-0.2 [facility] Basophils/100 WBC Auto (Bld) Ordered By: Kelly Hough on 12-25-2022 Basophils/100 WBC (Bld) 0.3 % . [facility] C reactive protein [Mass/vol ume] in Serum or PlasmaOrdered By: Jose Shanks on 12-25-2022 CRP [Mass/Vol] < 0.5 mg/dL 0.0-0.5 [facility] Calprotectin [Mass/mass] in StoolOrdered By: Jose Shanks on 12-25-2022 Calprotectin (Stl) [Mass/Mass] 32 ug/g 0-120 [facility] Comment on above: Concentration Interp retation Follow-Up<16 - 50 ug/g Normal None>50 -120 ug/g Borderline Re-evaluate in 4-6 weeks >120 ug/g Abnormal Repeat as clinically indicatedPerformed at: - [facility] [address] [id number] Director: Artemio Guillen MD, Phone: [phone] Eosinophils Auto (Bld) [#/Vo l]Ordered By: Kelly Hough on 12-25-2022 Eosinophils (Bld) [#/Vol] 0.1 10*3/uL 0.0-0.45 [facility] Eosinophils/100 WBC Auto (Bl d)Ordered By: Kelly Hough on 12-25-2022 Eosinophils/100 WBC (Bld) 1.1 % . [facility] Erythrocyte distribution wid th Auto (RBC) [Ratio]Ordered By: Kelly Hough on 12-25-2022 Erythrocyte distribution width (RBC) [Ratio] 15.5 % 11.9-15.3 [facility] Erythrocyte sedimentation ra te by Photometric methodOrdered By: Jose Shanks on 12-25-2022 ESR Photometric method (Bld) [Velocity] 32 mm/hr 0-19 [facility] Ferritin [Mass/volume] in Se rum or PlasmaOrdered By: Kelly Hough on 12-25-2022 Ferritin [Mass/Vol] 58.3 ng/mL 11.0-306.8 [facility] Hematocrit Auto (Bld) [Volum e fraction]Ordered By: Kelly Hough on 12-25-2022 Hematocrit (Bld) [Volume fraction] 35.3 % 34.0-46.4 [facility] Hemoglobin [Mass/volume] in BloodOrdered By: Kelly Hough on 12-25-2022 Hemoglobin (Bld) [Mass/Vol] 11.0 g/dL 11.8-15.4 [facility] IgA [Mass/volume] in Serum o r PlasmaOrdered By: Jose Shanks on 12-25-2022 IgA [Mass/Vol] 164 mg/dL 87-352 [facility] Comment on above: Performed at: [address] [id number] Director: Alan Macias PhD, Phone: [phone] Iron [Mass/volume] in Serum or PlasmaOrdered By: Kelly Hough on 12-25-2022 Iron [Mass/Vol] 112 ug/dL 50-212 [facility] Iron binding capacity [Mass/ volume] in Serum or PlasmaOrdered By: Kelly Hough on 12-25-2022 Iron binding capacity [Mass/Vol] 241 ug/dL 255-450 [facility] Iron saturation [Mass Fracti on] in Serum or PlasmaOrdered By: Kelly Hough on 12-25-2022 Iron saturation [Mass fraction] 46.5 % 20-50 [facility] Leukocytes [#/volume] correc delmer for nucleated erythrocytes in Blood by Automated counOrdered By: Kelly Hough on 12-25-2022 WBC corrected for nucl RBC Auto (Bld) [#/Vol] 6.8 10*3/uL 3.8-11.6 [facility] Lymphocytes Auto (Bld) [#/Vo l]Ordered By: Kelly Hough on 12-25-2022 Lymphocytes (Bld) [#/Vol] 1.7 10*3/uL 1.00-4.8 [facility] Lymphocytes/100 WBC Auto (Bl d)Ordered By: Kelly Hough on 12-25-2022 Lymphocytes/100 WBC (Bld) 25.5 % . [facility] MCH Auto (RBC) [Entitic mass ]Ordered By: Kelly oHugh on 12-25-2022 MCH (RBC) [Entitic mass] 22.3 pg 24.7-34.3 [facility] MCHC Auto (RBC) [Mass/Vol]Or dered By: Kelly Hough on 12-25-2022 MCHC (RBC) [Mass/Vol] 31.1 g/dL 32.0-35.0 [facility] MCV Auto (RBC) [Entitic vol] Ordered By: Kelly Hough on 12-25-2022 MCV (RBC) [Entitic vol] 71.8 fL 80-100 [facility] Monocytes Auto (Bld) [#/Vol] Ordered By: Kelly Hough on 12-25-2022 Monocytes (Bld) [#/Vol] 0.4 10*3/uL 0.0-0.8 [facility] Monocytes/100 WBC Auto (Bld) Ordered By: Kelly Hough on 12-25-2022 Monocytes/100 WBC (Bld) 6.3 % . [facility] Neutrophils Auto (Bld) [#/Vo l]Ordered By: Kelly Hough on 12-25-2022 Neutrophils (Bld) [#/Vol] 4.5 10*3/uL 1.8-7.7 [facility] Neutrophils/100 WBC Auto (Bl d)Ordered By: Kelly Hough on 12-25-2022 Neutrophils/100 WBC (Bld) 66.8 % . [facility] No Panel InformationOrdered By: Jose Shanks on 12-25-2022 Endomysial IgA Antibody Negative Negative [facility] Nucleated erythrocytes [Pres ence] in Blood by Automated countOrdered By: Kelly Hough on 12-25-2022 Nucleated RBC Auto Ql (Bld) 0.2 /100{WBC} 0-0.5 [facility] Platelet mean volume Auto (B ld) [Entitic vol]Ordered By: Kelly Hough on 12-25-2022 Platelet mean volume (Bld) [Entitic vol] 9.5 fL 6.3-10.7 [facility] Platelets Auto (Bld) [#/Vol] Ordered By: Kelly Hough on 12-25-2022 Platelets (Bld) [#/Vol] 191 10*3/uL 150-450 [facility] RBC Auto (Bld) [#/Vol]Ordere d By: Kelly Hough on 12-25-2022 RBC (Bld) [#/Vol] 4.92 10*6/uL 3.60-5.00 [facility] Serum gliadin peptide IgA an tibody assay (units/volume)Ordered By: Jose Shanks on 12-25-2022 Gliadin peptide IgA Qn (S) 7 units 0-19 [facility] Comment on above: Negative 0 - 19 Weak Positive 20 - 30 Moderate to Strong Positive >30 Serum gliadin peptide IgG an tibody assay (units/volume)Ordered By: Jose Shanks on 12-25-2022 Gliadin peptide IgG Qn (S) 3 units 0-19 [facility] Comment on above: Negative 0 - 19 Weak Positive 20 - 30 Moderate to Strong Positive >30 Serum tissue transglutaminas e (tTG) IgA antibody assay (units/volume)Ordered By: Jose Shanks on 12-25-2022 tTG IgA Qn (S) <2 U/mL 0-3 [facility] Comment on above: Negative 0 - 3 Weak Positive 4 - 10 Positive >10 Tissue Transglutaminase (tTG) has been identified as the endomysial antigen. Studies have demonstr- ated that endomysial IgA antibodies have over 99% specificity for gluten sensitive enteropathy. Serum tissue transglutaminas e (tTG) IgG antibody assay (units/volume)Ordered By: Jose Shanks on 12-25-2022 tTG IgG Qn (S) <2 U/mL 0-5 [facility] Comment on above: Negative 0 - 5 Weak Positive 6 - 9 Positive >9 Thyrotropin [Units/volume] i n Serum or PlasmaOrdered By: Jose Shanks on 12-25-2022 TSH Qn 0.78 m[IU]/L 0.45-5.33 [facility] Thyroxine (T4) free [Mass/vo lume] in Serum or PlasmaOrdered By: Dayne Horton on 12-25-2022 Free T4 [Mass/Vol] 0.93 ng/dL 0.61-1.12 [facility] Transferrin [Mass/volume] in Serum or PlasmaOrdered By: Kelly Hough on 12-25-2022 Transferrin [Mass/Vol] 172 mg/dL 203-362 [facility] Triiodothyronine (T3) Free [ Mass/volume] in Serum or PlasmaOrdered By: Dayne Horton on 12-25-2022 Free T3 [Mass/Vol] 3.54 pg/mL 2.50-3.90 [facility] Vitamin D+Metabolites [Mass/ volume] in Serum or PlasmaOrdered By: Dayne Horton on 12-25-2022 Vitamin D+Metabolites [Mass/Vol] 27.0 ng/mL 30-100 [facility] Comment on above: VITAMIN D STATUS 25( [place])VITAMIN D RANGE (ng/mL) Deficient <20 Insufficient 20 to <30Sufficient 30 to 100Reference: Pam MF,Abelardo NC, Cj GARZA, et al. Evaluation,treatment, and prevention of vitamin D deficiency; an Endocrine Society clinical practice guideline. JCEM. 2010; 96(7):1911-30. WBC Auto (Bld) [#/Vol]Ordere d By: Kelly Hough on 12-25-2022 WBC (Bld) [#/Vol] 6.8 10*3/uL 3.8-11.6 [facility] AMYLASEon 03-23-2023 Amylase [Catalytic activity/Vol] 82 U/L Normal 25-115 [facility] Comment on above: Performed By: #### U MICRO PREGU, ERUR #### [facility] [address] [address] [address] Adam Mejía CARDIAC REBECCA 3-6on 3 CK [Catalytic activity/Vol] 50 U/L Normal 26-192 [facility] Comment on above: Performed By: #### U MICRO PREGU, ERUR #### [facility] [address] [address] [address] Adam Mejía CK.MB [Mass/Vol] ng/mL Normal <=3.60 [facility] Comment on above: Performed By: #### U VERA PREGU, ERUR #### [facility] [address] [place] [address] Dr. Adam Mejía HSTROP <4.0 Normal 4.0-51.3 [facility] Comment on above: Result Comment: CUT- OFF POINTS HAVE BEEN ESTABLISHED BASED ON THE FOURTH UNIVERSAL DEFINITIONS OF MYOCARDIAL INFARCTION. THE UPPER REFERENCE LIMIT (URL) OF TROPONIN, DEFINED THE 99TH PERCENTILE OF cTnI DISTRIBUTION IN A REFERENCE POPULATION, HAS BEEN CONFIRMED THE DECISION THRESHOLD FOR RI DIAGNOSIS. Performed By: #### U VERA PREGU, ERUR #### [facility] [address] [place] [address] Dr. Adam Mejía CARDIAC REBECCA ADMITon 023 CK [Catalytic activity/Vol] 60 U/L Normal 26-192 [facility] Comment on above: Performed By: #### U MICRO, PREGU, ERUR #### [facility] [address] [address] [address] Adam Mejía CK.MB [Mass/Vol] ng/mL Normal <=3.60 [facility] Comment on above: Performed By: #### U MICRO, PREGU, ERUR #### [facility] [address] [place] [address] Dr. Adam Mejía HSTROP <4.0 Normal 4.0-51.3 [facility] Comment on above: Result Comment: CUT- OFF POINTS HAVE BEEN ESTABLISHED BASED ON THE FOURTH UNIVERSAL DEFINITIONS OF MYOCARDIAL INFARCTION. THE UPPER REFERENCE LIMIT (URL) OF TROPONIN, DEFINED THE 99TH PERCENTILE OF cTnI DISTRIBUTION IN A REFERENCE POPULATION, HAS BEEN CONFIRMED THE DECISION THRESHOLD FOR RI DIAGNOSIS. Performed By: #### U MICRO, PREGU, ERUR #### [facility] [address] [address] [address] Adam Mejía OSMIN 17 ng/mL Normal 9-82 [facility] Comment on above: Performed By: #### U MICRO, PREGU, ERUR #### [facility] [address] [address] [address] Adam Mejía CBC AUTO DIFFon 12-07-2022 BASO # 0.0 103/ul Normal 0.0-0.1 [facility] Comment on above: Performed By: #### U MICRO, PREGU, ERUR #### [facility] [address] [place] [address] Dr. Adam Mejía Basophils/100 WBC (Bld) 0.3 % Normal 0.2-2.0 [facility] Comment on above: Performed By: #### U MICRO, PREGU, ERUR #### [facility] [address] [place] [address] Dr. Adam Mejía EO # 0.2 103/ul Normal 0.0-0.7 [facility] Comment on above: Performed By: #### U MICRO, PREGU, ERUR #### [facility] [address] [place] [address] Dr. Adam Mejía Eosinophils/100 WBC (Bld) 2.5 % Normal 0.9-7.0 [facility] Comment on above: Performed By: #### U MICRO, PREGU, ERUR #### [facility] [address] [address] [address] Adam Mejía Erythrocyte distribution width (RBC) [Ratio] 15.2 % Critically high 11.0-15.0 [facility] Comment on above: Performed By: #### U MICRO, PREGU, ERUR #### [facility] [address] [place] [address] Dr. Adam Mejía Hematocrit (Bld) [Volume fraction] 34.8 % Critically low 36.0-48.0 [facility] Comment on above: Performed By: #### U MICRO, PREGU, ERUR #### [facility] [address] [place] [address] Dr. Adam Mejía Hemoglobin (Bld) [Mass/Vol] 10.6 g/dL Critically low 12.0-16.0 [facility] Comment on above: Performed By: #### U MICRO, PREGU, ERUR #### [facility] [address] [place] [address] Dr. Adam Mejía IG # 0.02 10e3/ul Normal 0.00-0.03 [facility] Comment on above: Performed By: #### U MICRO, PREGU, ERUR #### [facility] [address] [place] [address] Dr. Adam Mejía IG % 0.2 % Normal 0.0-0.5 [facility] Comment on above: Performed By: #### U MICRO, PREGU, ERUR #### [facility] [address] [place] [address] Dr. Adam Mejía LYMPH # 2.1 103/ul Normal 1.2-3.8 [facility] Comment on above: Performed By: #### U MICRO, PREGU, ERUR #### [facility] [address] [place] [address] Dr. Adam Mejía Lymphocytes/100 WBC (Bld) 23.0 % Normal 20.5-60.0 [facility] Comment on above: Performed By: #### U MICRO, PREGU, ERUR #### [facility] [address] [place] [address] Dr. Adam Mejía MANUAL DIFF REQ NO Normal [facility] Comment on above: Performed By: #### U MICRO, PREGU, ERUR #### [facility] [address] [place] [address] Dr. Adam Mejía MCH (RBC) [Entitic mass] 22.5 pg Critically low 26.7-34.0 [facility] Comment on above: Performed By: #### U MICRO, PREGU, ERUR #### [facility] [address] [place] [address] Dr. Adam Mejía MCHC (RBC) [Mass/Vol] 30.5 g/dL Normal 29.9-35.2 [facility] Comment on above: Performed By: #### U MICRO, PREGU, ERUR #### [facility] [address] [place] [address] Dr. Adam Mjeía MCV (RBC) [Entitic vol] 73.9 fL Critically low 81.0-99.0 [facility] Comment on above: Performed By: #### U MICRO, PREGU, ERUR #### [facility] [address] [place] [address] Dr. Adam Mejía MONO # 0.5 103/ul Normal 0.3-0.8 [facility] Comment on above: Performed By: #### U MICRO, PREGU, ERUR #### [facility] [address] [place] [address] Dr. Adam Mejía Monocytes/100 WBC (Bld) 5.8 % Normal 1.7-12.0 [facility] Comment on above: Performed By: #### U MICRO, PREGU, ERUR #### [facility] [address] [place] [address] Dr. Adam Mejía NEUT # 6.3 103/ul Normal 1.4-6.5 [facility] Comment on above: Performed By: #### U MICRO, PREGU, ERUR #### [facility] [address] [place] [address] Dr. Adam Mejía Neutrophils/100 WBC (Bld) 68.2 % Normal 43.0-75.0 [facility] Comment on above: Performed By: #### U MICRO, PREGU, ERUR #### [facility] [address] [place] [address] Dr. Adam Mejía Platelet mean volume (Bld) [Entitic vol] 11.8 fL Normal 9.5-13.5 [facility] Comment on above: Performed By: #### U MICRO, PREGU, ERUR #### [facility] [address] [address] [address] Adam Mejía PLT 250 103/ul Normal 150-450 [facility] Comment on above: Performed By: #### U MICRO, PREGU, ERUR #### [facility] [address] [address] [address] Adam Mejía RBC 4.71 106/ul Normal 4.20-5.40 [facility] Comment on above: Performed By: #### U MICRO, PREGU, ERUR #### [facility] [address] [place] [address] Dr. Adam Mejía WBC 9.2 103/ul Normal 4.0-11.0 [facility] Comment on above: Performed By: #### U MICRO, PREGU, ERUR #### [facility] [address] [place] [address] Dr. Adam Mejía ER URINE PROFILEon 3 Bilirubin Ql (U) Negative Normal NEGATIVE [facility] Comment on above: Performed By: #### U MICRO, PREGU, ERUR #### [facility] [address] [place] [address] Dr. Adam Mejía Clarity (U) CLEAR Normal CLEAR [facility] Comment on above: Performed By: #### U MICRO, PREGU, ERUR #### [facility] [address] [place] [address] Dr. Adam Mejía Color (U) LT. YELLOW Normal YELLOW [facility] Comment on above: Performed By: #### U MICRO, PREGU, ERUR #### [facility] [address] [place] [address] Dr. Adam Mejía ERUAHD A micrscopic examina tion will be performed if indicated. Normal [facility] Comment on above: Performed By: #### U MICRO, PREGU, ERUR #### [facility] [address] [place] [address] Dr. Adam Mejía Glucose Ql (U) Negative Normal NEGATIVE [facility] Comment on above: Performed By: #### U MICRO, PREGU, ERUR #### [facility] [address] [place] [address] Dr. Adam Mejía Hemoglobin Ql (U) SMALL Abnormal NEGATIVE [facility] Comment on above: Performed By: #### U MICRO, PREGU, ERUR #### [facility] [address] [place] [address] Dr. Adam Mejía Ketones Ql (U) Negative Normal NEGATIVE [facility] Comment on above: Performed By: #### U MICRO, PREGU, ERUR #### [facility] [address] [address] [address] Adam Mejía LEUKOCYTES Negative Normal NEGATIVE [facility] Comment on above: Performed By: #### U MICRO, PREGU, ERUR #### [facility] [address] [address] [address] Adam Mejía Nitrite Ql (U) Negative Normal NEGATIVE [facility] Comment on above: Performed By: #### U MICRO, PREGU, ERUR #### [facility] [address] [place] [address] Dr. Adam Mejía pH (U) 8.0 [pH] Normal 5-9 [facility] Comment on above: Performed By: #### U MICRO, PREGU, ERUR #### [facility] [address] [address] [address] Adam Mejía SPEC GRAVITY 1.010 Normal 1.005-<=1. 025 [facility] Comment on above: Performed By: #### U MICRO, PREGU, ERUR #### [facility] [address] [address] [address] Adam Mejía UA PROTEIN Negative Normal NEGATIVE/ TRACE [facility] Comment on above: Performed By: #### U MICRO, PREGU, ERUR #### [facility] [address] [address] [address] Adam Mejía UR MICRO IND INDICATED Normal [facility] Comment on above: Performed By: #### U MICRO, PREGU, ERUR #### [facility] [address] [place] [address] Dr. Adam Mejía Urobilinogen Qn (U) 1.0 {Brinda'U}/dL Normal 0.2 - 1. 0 [facility] Comment on above: Performed By: #### U MICRO, PREGU, ERUR #### [facility] [address] [place] [address] Dr. Adam Mejía LACTATE/LACTIC ACIDon 2022 Lactate [Moles/Vol] 0.5 mmol/L Normal 0.4-2.0 [facility] Comment on above: Performed By: #### U MICRO, PREGU, ERUR #### [facility] [address] [place] [address] Dr. Adam Mejía LIPASEon 12-07-2022 Lipase [Catalytic activity/Vol] 219.0 U/L Normal 73.0-393.0 [facility] Comment on above: Performed By: #### U MICRO, PREGU, ERUR #### [facility] [address] [place] [address] Dr. Adam Mejía LIVER PROFILEon 12-07-2022 Albumin [Mass/Vol] 3.7 g/dL Normal 3.4-5.0 [facility] Comment on above: Performed By: #### U MICRO, PREGU, ERUR #### [facility] [address] [place] [address] Dr. Adam Mejía Albumin/Globulin [Mass ratio] 1.1 {ratio} Normal [facility] Comment on above: Performed By: #### U MICRO, PREGU, ERUR #### [facility] [address] [place] [address] Dr. Adam Mejía ALP [Catalytic activity/Vol] 57 U/L Normal 46-116 [facility] Comment on above: Performed By: #### U MICRO, PREGU, ERUR #### [facility] [address] [place] [address] Dr. Adam Mejía ALT [Catalytic activity/Vol] 15 U/L Normal 14-59 [facility] Comment on above: Performed By: #### U MICRO, PREGU, ERUR #### [facility] [address] [place] [address] Dr. Adam Mejía AST [Catalytic activity/Vol] 13 U/L Critically low 15-37 [facility] Comment on above: Performed By: #### U MICRO, PREGU, ERUR #### [facility] [address] [place] [address] Dr. Adam Mejía BILI, CONJUGATED 0.2 mg/dL Normal 0.0-0.2 [facility] Comment on above: Performed By: #### U MICRO, PREGU, ERUR #### [facility] [address] [place] [address] Dr. Adam Mejía Bilirubin [Mass/Vol] 0.2 mg/dL Normal 0.2-1.0 [facility] Comment on above: Performed By: #### U MICRO, PREGU, ERUR #### [facility] [address] [place] [address] Dr. Adam Mejía Globulin (S) [Mass/Vol] 3.4 g/dL Normal [facility] Comment on above: Performed By: #### U MICRO, PREGU, ERUR #### [facility] [address] [place] [address] Dr. Adam Mejía Protein [Mass/Vol] 7.1 g/dL Normal 6.4-8.2 [facility] Comment on above: Performed By: #### U MICRO, PREGU, ERUR #### [facility] [address] [place] [address] Dr. Adam Mejía PROF CHEM 8 (BAS METB)on Anion gap [Moles/Vol] 12.0 mmol/L Normal [facility] Comment on above: Performed By: #### U MICRO, PREGU, ERUR #### [facility] [address] [place] [address] Dr. Adam Mejía Calcium [Mass/Vol] 8.8 mg/dL Normal 8.5-10.1 [facility] Comment on above: Performed By: #### U MICRO, PREGU, ERUR #### [facility] [address] [place] [address] Dr. Adam Mejía Chloride [Moles/Vol] 102 mmol/L Normal 98-107 [facility] Comment on above: Performed By: #### U MICRO, PREGU, ERUR #### [facility] [address] [address] [address] Adam Mejía CO2 [Moles/Vol] 26.9 mmol/L Normal 21.0-32.0 [facility] Comment on above: Performed By: #### U MICRO, PREGU, ERUR #### [facility] [address] [address] [address] Adam Mejía Creatinine [Mass/Vol] 0.75 mg/dL Normal 0.55-1.02 [facility] Comment on above: Performed By: #### U MICRO, PREGU, ERUR #### [facility] [address] [address] [address] Adam Mejía EGFR-AF MEXICAN >60 Normal >=60 [facility] Comment on above: Performed By: #### U MICRO, PREGU, ERUR #### [facility] [address] [place] [address] Dr. Adam Mejía EGFR-NON AF MEXICAN >60 Normal >=60 [facility] Comment on above: Performed By: #### U MICRO, PREGU, ERUR #### [facility] [address] [address] [address] Adam Mejía Glucose [Mass/Vol] 97 mg/dL Normal 74-106 [facility] Comment on above: Performed By: #### U MICRO, PREGU, ERUR #### [facility] [address] [address] [address] Adam Mejía Potassium [Moles/Vol] 3.9 mmol/L Normal 3.5-5.1 [facility] Comment on above: Performed By: #### U MICRO, PREGU, ERUR #### [facility] [address] [address] [address] Adam Mejía Sodium [Moles/Vol] 137 mmol/L Normal 136-145 [facility] Comment on above: Performed By: #### U MICRO, PREGU, ERUR #### [facility] [address] [address] [address] Adam Mejía Urea nitrogen [Mass/Vol] 13.0 mg/dL Normal 7.0-18.0 [facility] Comment on above: Performed By: #### U MICRO, PREGU, ERUR #### [facility] [address] [address] [address] Adam Mejía Urea nitrogen/Creatinine [Mass ratio] 17.3 mg/mg Normal [facility] Comment on above: Performed By: #### U MICRO, PREGU, ERUR #### [facility] [address] [address] [address] Adam Mejía URINE MICROSCOPIC ONLYon BACTERIA NONE SEEN Normal NONE SEEN [facility] Comment on above: Performed By: #### U MICRO, PREGU, ERUR #### [facility] [address] [address] [address] Adam Mejía Bacteria identified Cx Nom (U) NOT INDICATED Normal [facility] Comment on above: Performed By: #### U MICRO, PREGU, ERUR #### [facility] [address] [address] [address] Adam Mejía CAST NONE SEEN Normal NONE SEEN [facility] Comment on above: Performed By: #### U MICRO, PREGU, ERUR #### [facility] [address] [address] [address] Adam Mejía Crystals LM Nom (Urine sed) NONE SEEN Normal NONE SEEN [facility] Comment on above: Performed By: #### U MICRO, PREGU, ERUR #### [facility] [address] [address] [address] Adam Mejía Epithelial cells LM Ql (Urine sed) RARE Normal NONE SEEN /RARE [facility] Comment on above: Performed By: #### U MICRO, PREGU, ERUR #### [facility] [address] [address] [address] Adam Mejía MUCOUS NONE SEEN Normal NONE SEEN [facility] Comment on above: Performed By: #### U MICRO, PREGU, ERUR #### [facility] [address] [address] [address] Adam Mejía RBC 2-5 Abnormal 0-2 [facility] Comment on above: Performed By: #### U MICRO, PREGU, ERUR #### [facility] [address] [place], [place] [address] Dr. Adam Mejía WBC NONE SEEN Normal NONE SEEN [facility] Comment on above: Performed By: #### U SETH GAMEZ ERUR #### [facility] [address] [place], [place] [address] Dr. Adam Mejía XR ABD FLAT UP_PA [...] LENI ANGEL Date: 2022-12-07 00:23 Normal [facility] US PELVIS TRANSVAGon 023 US PELVIS [...] by: KALPESH FOWLER Date: 2022-11-29 11:27 Normal [facility] No Panel InformationOrdered By: Dayne Horton on 10-12-2022 25-Hydroxy Vitamin D Total 10.4 ng/mL 30-100 [facility] Comment on above: VITAMIN D STATUS 25( [place])VITAMIN D RANGE (ng/mL) Deficient <20 Insufficient 20 to <30Sufficient 30 to 100Reference: Pam MF,Abelardo MUÑOZ, Cj GARZA, et al. Evaluation,treatment, and prevention of vitamin D deficiency; an Endocrine Society clinical practice guideline. JCEM. 2010; 96(7):1911-30. Serum or plasma thyroglobuli n antibody assay (units/volume)Ordered By: Dayne Horton on 10-12-2022 Thyroglobulin Ab Qn [IU]/mL 0.0-0.9 [facility] Comment on above: Thyroglobulin Antibo dy measured by [facility] GirlMethodologyPerformed at: CB - [facility] [address] [id number] Director: Alan Macias PhD, Phone: [phone] Serum or plasma thyroperoxid ase antibody assay (units/volume)Ordered By: Dayne Horton on 10-12-2022 TPO Ab Qn 11 [IU]/mL 0-34 [facility] Serum thyrotropin receptor a ntibody assay (units/volume)Ordered By: Dayne Horton on 10-12-2022 TSH receptor Ab Qn (S) <1.10 IU/L 0.00-1.75 [facility] Comment on above: Performed at: - [facility] [address] [id number] Director: Artemio Guillen MD, Phone: [phone] TSH DL <= 0.005 mIU/L QnOrde red By: Dayne Horton on 10-12-2022 TSH Qn 0.06 m[IU]/L 0.45-5.33 [facility] Thyroxine (T4) free [Mass/vo lume] in Serum or PlasmaOrdered By: Dayne Horton on 10-12-2022 Free T4 [Mass/Vol] 1.02 ng/dL 0.61-1.12 [facility] Triiodothyronine (T3) Free [ Mass/volume] in Serum or PlasmaOrdered By: Dayne Horton on 10-12-2022 Free T3 [Mass/Vol] 3.90 pg/mL 2.50-3.90 [facility] Basophils Auto (Bld) [#/Vol] Ordered By: Kelly Hough on 10-03-2022 Basophils (Bld) [#/Vol] 0.0 10*3/uL 0.0-0.2 [facility] Basophils/100 WBC Auto (Bld) Ordered By: Kelly Hough on 10-03-2022 Basophils/100 WBC (Bld) 0.7 % . [facility] CT biopsyOrdered By: Kelly Ramos on 10-03-2022 Transferrin [Mass/Vol] 230 mg/dL 180-380 [facility] Eosinophils Auto (Bld) [#/Vo l]Ordered By: Kelly Hough on 10-03-2022 Eosinophils (Bld) [#/Vol] 0.1 10*3/uL 0.0-0.45 [facility] Eosinophils/100 WBC Auto (Bl d)Ordered By: Kelly Hough on 10-03-2022 Eosinophils/100 WBC (Bld) 2.4 % . [facility] Erythrocyte distribution wid th Auto (RBC) [Ratio]Ordered By: Kelly Hough on 10-03-2022 Erythrocyte distribution width (RBC) [Ratio] 15.2 % 11.9-15.3 [facility] Ferritin [Mass/volume] in Se rum or PlasmaOrdered By: Kelly Hough on 10-03-2022 Ferritin [Mass/Vol] 7.7 ng/mL 11-306.8 [facility] Hematocrit Auto (Bld) [Volum e fraction]Ordered By: Kelly Hough on 10-03-2022 Hematocrit (Bld) [Volume fraction] 31.2 % 34.0-46.4 [facility] Hemoglobin [Mass/volume] in BloodOrdered By: Kelly Hough on 10-03-2022 Hemoglobin (Bld) [Mass/Vol] 9.7 g/dL 11.8-15.4 [facility] Iron [Mass/volume] in Serum or PlasmaOrdered By: Kelly Hough on 10-03-2022 Iron [Mass/Vol] 96 ug/dL 40-150 [facility] Iron binding capacity [Mass/ volume] in Serum or PlasmaOrdered By: Kelly Hough on 10-03-2022 Iron binding capacity [Mass/Vol] 322 ug/dL 255-450 [facility] Iron saturation [Mass Fracti on] in Serum or PlasmaOrdered By: Kelly Hough on 10-03-2022 Iron saturation [Mass fraction] 29.8 % 20-50 [facility] Leukocytes [#/volume] correc delmer for nucleated erythrocytes in Blood by Automated counOrdered By: Kelly Hough on 10-03-2022 WBC corrected for nucl RBC Auto (Bld) [#/Vol] 5.6 10*3/uL 3.8-11.6 [facility] Lymphocytes Auto (Bld) [#/Vo l]Ordered By: Kelly Hough on 10-03-2022 Lymphocytes (Bld) [#/Vol] 1.7 10*3/uL 1.00-4.8 [facility] Lymphocytes/100 WBC Auto (Bl d)Ordered By: Kelly Hough on 10-03-2022 Lymphocytes/100 WBC (Bld) 30.9 % . [facility] MCH Auto (RBC) [Entitic mass ]Ordered By: Kelly Hough on 10-03-2022 MCH (RBC) [Entitic mass] 21.8 pg 24.7-34.3 [facility] MCHC Auto (RBC) [Mass/Vol]Or dered By: Kelly Hough on 10-03-2022 MCHC (RBC) [Mass/Vol] 31.2 g/dL 32.0-35.0 [facility] MCV Auto (RBC) [Entitic vol] Ordered By: Kelly Hough on 10-03-2022 MCV (RBC) [Entitic vol] 70.0 fL 80-100 [facility] Monocytes Auto (Bld) [#/Vol] Ordered By: Kelly Hough on 10-03-2022 Monocytes (Bld) [#/Vol] 0.4 10*3/uL 0.0-0.8 [facility] Monocytes/100 WBC Auto (Bld) Ordered By: Kelly Hough on 10-03-2022 Monocytes/100 WBC (Bld) 6.3 % . [facility] Neutrophils Auto (Bld) [#/Vo l]Ordered By: Kelly Hough on 10-03-2022 Neutrophils (Bld) [#/Vol] 3.4 10*3/uL 1.8-7.7 [facility] Neutrophils/100 WBC Auto (Bl d)Ordered By: Kelly Hough on 10-03-2022 Neutrophils/100 WBC (Bld) 59.7 % . [facility] Nucleated erythrocytes [Pres ence] in Blood by Automated countOrdered By: Kelly Hough on 10-03-2022 Nucleated RBC Auto Ql (Bld) 0.1 /100{WBC} 0-0.5 [facility] Platelet mean volume Auto (B ld) [Entitic vol]Ordered By: Kelly Hough on 10-03-2022 Platelet mean volume (Bld) [Entitic vol] 9.4 fL 6.3-10.7 [facility] Platelets Auto (Bld) [#/Vol] Ordered By: Kelly Hough on 10-03-2022 Platelets (Bld) [#/Vol] 226 10*3/uL 150-450 [facility] RBC Auto (Bld) [#/Vol]Ordere d By: Kelly Hough on 10-03-2022 RBC (Bld) [#/Vol] 4.46 10*6/uL 3.60-5.00 [facility] WBC Auto (Bld) [#/Vol]Ordere d By: Kelly Hough on 10-03-2022 WBC (Bld) [#/Vol] 5.6 10*3/uL 3.8-11.6 [facility] Free thyroxine indexOrdered By: Yudelka Lopez on 10-02-2022 Free T4 index Calc [Mass/Vol] 2.8 1.2-4.9 [facility] No Panel InformationOrdered By: Yudelka Lopez on 10-02-2022 Free Thyroxine (T4) Direct 8.6 ug/dL 4.5-12.0 [facility] TSH DL <= 0.005 mIU/L QnOrde red By: Yudelka Lopez on 10-02-2022 TSH Qn 0.037 m[IU]/L 0.450-4.50 0 [facility] Triiodothyronine (T3) [Mass/ volume] in Serum or PlasmaOrdered By: Yudelka Lopez on 10-02-2022 T3 [Mass/Vol] 135 ng/dL 71-180 [facility] Comment on above: Performed at: [address] Director: Alan Macias PhD, Phone: [phone] Triiodothyronine (T3) resin uptake testOrdered By: Yudelka Lopez on 10-02-2022 T3RU 33 % 24-39 [facility] Activated partial thrombopla stin time (aPTT) in platelet poor plasma by coagulation aOrdered By: Jim Vega on 09-21-2022 aPTT Coag (PPP) [Time] 30.8 s 25.1-36.5 [facility] Albumin [Mass/volume] in Ser um or PlasmaOrdered By: Jim Vega on 09-21-2022 Albumin [Mass/Vol] 3.7 g/dL 3.2-5.5 [facility] Automated erythrocytes count in urine sediment (number/area)Ordered By: Jim Vega on 09-21-2022 RBC Auto (Urine sed) [#/Area] 1-2 [HPF] 0-4 [facility] Automated leukocytes count i n urine sediment (number/area)Ordered By: Jim Vega on 09-21-2022 WBC Auto (Urine sed) [#/Area] 0-1 [HPF] 0-4 [facility] Basophils Auto (Bld) [#/Vol] Ordered By: Jim Vega on 09-21-2022 Basophils (Bld) [#/Vol] 0.0 10*3/uL 0.0-0.2 [facility] Basophils/100 WBC Auto (Bld) Ordered By: Jim Vega on 09-21-2022 Basophils/100 WBC (Bld) 0.5 % . [facility] Bilirubin Test strip Ql (U)O rdered By: Jim Vega on 09-21-2022 Bilirubin Ql (U) Negative Negative [facility] COVID CepheidOrdered By: Rahat Vega on 09-21-2022 SARS-CoV-2 (COVID-19) Ab IA Ql Negative Negative [facility] Comment on above: This is a duplicate [employer] Xpert Xpress CoV-2/Flu/RSV Plus RNA by RT-PCR result to be used for statistical tracking purpose only. SARS-CoV-2 (COVID-19) RNA HIRAM+probe Ql (Unsp spec) [facility] SARS-CoV-2 (COVID-19) RNA HIRAM+probe Ql (Unsp spec) [facility] Color Auto (U)Ordered By: Narinder Vega on 09-21-2022 Color (U) Yellow Yellow [facility] Creatinine and Glomerular fi ltration rate.predicted panel (S/P/Bld)Ordered By: Jim Vega on 09-21-2022 Creatinine [Mass/Vol] 0.79 mg/dL 0.44-1.03 [facility] Eosinophils Auto (Bld) [#/Vo l]Ordered By: Jim Vega on 09-21-2022 Eosinophils (Bld) [#/Vol] 0.1 10*3/uL 0.0-0.45 [facility] Eosinophils/100 WBC Auto (Bl d)Ordered By: Jim Vega on 09-21-2022 Eosinophils/100 WBC (Bld) 2.7 % . [facility] Erythrocyte distribution wid th Auto (RBC) [Ratio]Ordered By: Jim Vega on 09-21-2022 Erythrocyte distribution width (RBC) [Ratio] 15.6 % 11.9-15.3 [facility] Estimated glomerular filtrat ion rate (GFR) non- AmericanOrdered By: Jim Vega on 09-21-2022 GFR/1.73 sq M.predicted among non-blacks MDRD (S/P/Bld) [Vol rate/Area] > 60 mL/Min [facility] Globulin Calc (S) [Mass/Vol] Ordered By: Jim Vega on 09-21-2022 Globulin (S) [Mass/Vol] 3.3 g/dL [facility] HCG ( test) IA.rapi d Ql (U)Ordered By: Jim Vega on 09-21-2022 HCG ( test) Ql (U) Negative [facility] Hematocrit Auto (Bld) [Volum e fraction]Ordered By: Jim Vega on 09-21-2022 Hematocrit (Bld) [Volume fraction] 31.9 % 34.0-46.4 [facility] Hemoglobin [Mass/volume] in BloodOrdered By: Jim Vega on 09-21-2022 Hemoglobin (Bld) [Mass/Vol] 9.9 g/dL 11.8-15.4 [facility] Ketones Auto test strip (U) [Mass/Vol]Ordered By: Jim Vega on 09-21-2022 Ketones (U) [Mass/Vol] Negative [facility] Coagulation[facility] red By: Jim Vega on 09-21-2022 PT Coag (PPP) [Time] 13.3 s 9.0-12.9 [facility] - UrinalysisOrder ed By: Jim Vega on 09-21-2022 Hyaline casts LM Ql (Urine sed) None seen [LPF] 0-8 [facility] Leukocytes [#/volume] correc delmer for nucleated erythrocytes in Blood by Automated counOrdered By: Jim Vega on 09-21-2022 WBC corrected for nucl RBC Auto (Bld) [#/Vol] 5.4 10*3/uL 3.8-11.6 [facility] Lymphocytes Auto (Bld) [#/Vo l]Ordered By: Jim Vega on 09-21-2022 Lymphocytes (Bld) [#/Vol] 1.4 10*3/uL 1.00-4.8 [facility] Lymphocytes/100 WBC Auto (Bl d)Ordered By: Jim Vega on 09-21-2022 Lymphocytes/100 WBC (Bld) 26.1 % . [facility] MCH Auto (RBC) [Entitic mass ]Ordered By: Jim Vega on 09-21-2022 MCH (RBC) [Entitic mass] 21.7 pg 24.7-34.3 [facility] MCHC Auto (RBC) [Mass/Vol]Or dered By: Jim Vega on 09-21-2022 MCHC (RBC) [Mass/Vol] 31.0 g/dL 32.0-35.0 [facility] MCV Auto (RBC) [Entitic vol] Ordered By: Jim Vega on 09-21-2022 MCV (RBC) [Entitic vol] 70.1 fL 80-100 [facility] Monocyte distribution width [Entitic volume] in Blood by AutomatedOrdered By: Jim Vega on 09-21-2022 Monocyte distribution width Auto (Bld) [Entitic vol] 15.00 % 0.00-20.00 [facility] Monocytes Auto (Bld) [#/Vol] Ordered By: Jim Vega on 09-21-2022 Monocytes (Bld) [#/Vol] 0.4 10*3/uL 0.0-0.8 [facility] Monocytes/100 WBC Auto (Bld) Ordered By: Jim Vega on 09-21-2022 Monocytes/100 WBC (Bld) 6.9 % . [facility] Neutrophils Auto (Bld) [#/Vo l]Ordered By: Jim Vega on 09-21-2022 Neutrophils (Bld) [#/Vol] 3.4 10*3/uL 1.8-7.7 [facility] Neutrophils/100 WBC Auto (Bl d)Ordered By: Jim Vega on 09-21-2022 Neutrophils/100 WBC (Bld) 63.8 % . [facility] Nitrite Test strip Ql (U)Ord ered By: Jim Vega on 09-21-2022 Nitrite Ql (U) Negative Negative [facility] No Panel InformationOrdered By: Jim Vega on 09-21-2022 D-Dimer Quantitative (PE/DVT) 205 ng/mL 0-243 [facility] Comment on above: The reference range [...] conditions. Estimated GFR () > 60 mL/Min [facility] Comment on above: GFR estimated refere nce range: According to KDOQI guidelines, <60 ml/min/1.73m2 is sufficient to diagnose a patient with chronic kidney disease. Pharmacy Creatinine Clearance (Chem 96.49 [facility] Nucleated erythrocytes [Pres ence] in Blood by Automated countOrdered By: Jim Vega on 09-21-2022 Nucleated RBC Auto Ql (Bld) 0.4 /100{WBC} 0-0.5 [facility] Platelet mean volume Auto (B ld) [Entitic vol]Ordered By: Jim Vega on 09-21-2022 Platelet mean volume (Bld) [Entitic vol] 10.0 fL 6.3-10.7 [facility] Platelet poor plasma interna tional normalized ratio (INR) by coagulation assay (relatOrdered By: Jim Vega on 09-21-2022 INR Coag (PPP) [Relative time] 1.2 {INR} [facility] Comment on above: INR Therapeutic Rang [...] 09-21-2022 Platelets (Bld) [#/Vol] 215 10*3/uL 150-450 [facility] Protein Auto test strip (U) [Mass/Vol]Ordered By: Jim Vega on 09-21-2022 Protein (U) [Mass/Vol] Negative Negative [facility] Protein [Mass/volume] in Ser um or PlasmaOrdered By: Jim Vega on 09-21-2022 Protein [Mass/Vol] 7.0 g/dL 6.1-7.9 [facility] RBC Auto (Bld) [#/Vol]Ordere d By: Jim Vega on 09-21-2022 RBC (Bld) [#/Vol] 4.54 10*6/uL 3.60-5.00 [facility] Serum or plasma alanine keene otransferase measurement without P-5'-P (enzymatic activiOrdered By: Jim Vega on 09-21-2022 ALT No additional P-5'-P [Catalytic activity/Vol] 11 U/L 10-60 [facility] Serum or plasma albumin/glob ulin mass ratioOrdered By: Jim Vega on 09-21-2022 Albumin/Globulin [Mass ratio] 1.1 {ratio} [facility] Serum or plasma alkaline jared sphatase measurement (enzymatic activity/volume)Ordered By: Jim Vega on 09-21-2022 ALP [Catalytic activity/Vol] 47 U/L 32-92 [facility] Serum or plasma anion gap de terminationOrdered By: Jim Vega on 09-21-2022 Anion gap [Moles/Vol] 10.0 mmol/L 6.0-15.0 [facility] Serum or plasma aspartate am inotransferase measurement (enzymatic activity/volume)Ordered By: Jim Vega on 09-21-2022 AST [Catalytic activity/Vol] 13 U/L 10-42 [facility] Serum or plasma calcium marychuy urement (mass/volume)Ordered By: Jim Vega on 09-21-2022 Calcium [Mass/Vol] 8.9 mg/dL 8.2-10.2 [facility] Serum or plasma chloride nemo surement (moles/volume)Ordered By: Jim Vega on 09-21-2022 Chloride [Moles/Vol] 105 mmol/L 95-114 [facility] Serum or plasma glucose marychuy urement (mass/volume)Ordered By: Jim Vega on 09-21-2022 Glucose [Mass/Vol] 114 mg/dL 70-100 [facility] Comment on above: ADA recommended refe rence rangeRandom Glucose Reference Range is dependent on time and content of last meal. Glucose of more than 200 mg/dL in a nonstressed, ambulatory subject supports the diagnosis of Diabetes Mellitus. Serum or plasma potassium me asurement (moles/volume)Ordered By: Jim Vega on 09-21-2022 Potassium [Moles/Vol] 3.5 mmol/L 3.5-5.1 [facility] Serum or plasma sodium measu rement (moles/volume)Ordered By: Jim Vega on 09-21-2022 Sodium [Moles/Vol] 134 mmol/L 136-146 [facility] Serum or plasma total biliru bin measurement (mass/volume)Ordered By: Jim Vega on 09-21-2022 Bilirubin [Mass/Vol] 0.5 mg/dL 0.3-1.2 [facility] Serum or plasma total carbon dioxide measurement (moles/volume)Ordered By: Jim Vega on 09-21-2022 CO2 [Moles/Vol] 22.5 mmol/L 22.0-30.0 [facility] Serum or plasma urea nitroge n measurement (mass/volume)Ordered By: Jim Vega on 09-21-2022 Urea nitrogen [Mass/Vol] 5 mg/dL 9-23 [facility] Specific gravity Auto test s trip (U) [Rel density]Ordered By: Jim Vega on 09-21-2022 Specific gravity (U) [Rel density] 1.004 1.001-1.03 0 [facility] Squamous epithelial cells de tection in urine sediment by light microscopyOrdered By: Jim Vega on 09-21-2022 Epithelial cells.squamous LM Ql (Urine sed) 0-1 [HPF] 0-2 [facility] TSH DL <= 0.005 mIU/L QnOrde red By: Jim Vega on 09-21-2022 TSH Qn 0.14 m[IU]/L 0.45-5.33 [facility] Thyroxine (T4) free [Mass/vo lume] in Serum or PlasmaOrdered By: Jim Vega on 09-21-2022 Free T4 [Mass/Vol] 1.30 ng/dL 0.61-1.12 [facility] Troponin I.cardiac [Mass/vol ume] in Serum or Plasma by High sensitivity methodOrdered By: Jim Vega on 09-21-2022 Troponin I.cardiac High sensitivity method [Mass/Vol] < 3 pg/mL 0-15 [facility] Urine bacteria detection by automated methodOrdered By: Jim Vega on 09-21-2022 Bacteria Auto Ql (U) None seen None Seen [facility] Urine clarity by refractomet ry automatedOrdered By: Jim Vega on 09-21-2022 Clarity Refractometry automated (U) Clear Clear [facility] Urine glucose measurement by automated test strip (mass/volume)Ordered By: Jim Vega on 09-21-2022 Glucose Auto test strip (U) [Mass/Vol] Normal mg/dL Normal [facility] Urine hemoglobin detection b y automated test stripOrdered By: Jim Vega on 09-21-2022 Hemoglobin Auto test strip Ql (U) Trace Negative [facility] Urine leukocyte esterase det ection by automated test stripOrdered By: Jim Vega on 09-21-2022 Leukocyte esterase Auto test strip Ql (U) Negative Negative [facility] Urobilinogen Auto test strip (U) [Mass/Vol]Ordered By: Jim Vega on 09-21-2022 Urobilinogen (U) [Mass/Vol] Normal mg/dL Normal [facility] WBC Auto (Bld) [#/Vol]Ordere d By: Jim Vega on 09-21-2022 WBC (Bld) [#/Vol] 5.4 10*3/uL 3.8-11.6 [facility] pH Auto test strip (U)Ordere d By: Jim Vega on 09-21-2022 pH (U) 7.0 [pH] 5.0-9.0 [facility] Anisocytosis LM Ql (Bld)Orde red By: Tejinder Peraza on 09-15-2022 Anisocytosis Ql (Bld) Slight [facility] Basophils Auto (Bld) [#/Vol] Ordered By: Tejinder Peraza on 09-15-2022 Basophils (Bld) [#/Vol] 0.0 10*3/uL 0.0-0.2 [facility] Basophils/100 WBC Auto (Bld) Ordered By: Tejinder Peraza on 09-15-2022 Basophils/100 WBC (Bld) 0.3 % . [facility] Eosinophils Auto (Bld) [#/Vo l]Ordered By: Tejinder Peraza on 09-15-2022 Eosinophils (Bld) [#/Vol] 0.1 10*3/uL 0.0-0.45 [facility] Eosinophils/100 WBC Auto (Bl d)Ordered By: Tejinder Peraza on 09-15-2022 Eosinophils/100 WBC (Bld) 1.2 % . [facility] Erythrocyte distribution wid th Auto (RBC) [Ratio]Ordered By: Tejinder Peraza on 09-15-2022 Erythrocyte distribution width (RBC) [Ratio] 15.2 % 11.9-15.3 [facility] Hematocrit Auto (Bld) [Volum e fraction]Ordered By: Tejinder Peraza on 09-15-2022 Hematocrit (Bld) [Volume fraction] 30.9 % 34.0-46.4 [facility] Hemoglobin [Mass/volume] in BloodOrdered By: Tejinder Peraza on 09-15-2022 Hemoglobin (Bld) [Mass/Vol] 9.6 g/dL 11.8-15.4 [facility] Hypochromia LM Ql (Bld)Order ed By: Tejinder Peraza on 09-15-2022 Hypochromia Ql (Bld) Slight [facility] Leukocytes [#/volume] correc delmer for nucleated erythrocytes in Blood by Automated counOrdered By: Tejinder Peraza on 09-15-2022 WBC corrected for nucl RBC Auto (Bld) [#/Vol] 7.5 10*3/uL 3.8-11.6 [facility] Lymphocytes Auto (Bld) [#/Vo l]Ordered By: Tejinder Peraza on 09-15-2022 Lymphocytes (Bld) [#/Vol] 1.7 10*3/uL 1.00-4.8 [facility] Lymphocytes/100 WBC Auto (Bl d)Ordered By: Tejinder Peraza on 09-15-2022 Lymphocytes/100 WBC (Bld) 22.2 % . [facility] MCH Auto (RBC) [Entitic mass ]Ordered By: Tejinder Peraza on 09-15-2022 MCH (RBC) [Entitic mass] 21.8 pg 24.7-34.3 [facility] MCHC Auto (RBC) [Mass/Vol]Or dered By: Tejinder Peraza on 09-15-2022 MCHC (RBC) [Mass/Vol] 31.1 g/dL 32.0-35.0 [facility] MCV Auto (RBC) [Entitic vol] Ordered By: Tejinder Peraza on 09-15-2022 MCV (RBC) [Entitic vol] 70.0 fL 80-100 [facility] Microcytes LM Ql (Bld)Ordere d By: Tejinder Peraza on 09-15-2022 Microcytes Ql (Bld) Slight [facility] Monocytes Auto (Bld) [#/Vol] Ordered By: Tejinder Peraza on 09-15-2022 Monocytes (Bld) [#/Vol] 0.4 10*3/uL 0.0-0.8 [facility] Monocytes/100 WBC Auto (Bld) Ordered By: Tejinder Peraza on 09-15-2022 Monocytes/100 WBC (Bld) 5.3 % . [facility] Neutrophils Auto (Bld) [#/Vo l]Ordered By: Tejinder Peraza on 09-15-2022 Neutrophils (Bld) [#/Vol] 5.3 10*3/uL 1.8-7.7 [facility] Neutrophils/100 WBC Auto (Bl d)Ordered By: Tejinder Peraza on 09-15-2022 Neutrophils/100 WBC (Bld) 71.0 % . [facility] No Panel InformationOrdered By: Tejinder Peraza on 09-15-2022 D-Dimer Quantitative (PE/DVT) 245 ng/mL 0-243 [facility] Comment on above: The reference range [...] RBC Auto Ql (Bld) 0.1 /100{WBC} 0-0.5 [facility] Ovalocyte detectionOrdered B y: Tejinder Pearza on 09-15-2022 Ovalocytes LM Ql (Bld) Slight [facility] Platelet adequacy [Presence] in Blood by Light microscopyOrdered By: Tejinder Peraza on 09-15-2022 Platelets LM Ql (Bld) Normal Normal [facility] Platelet mean volume Auto (B ld) [Entitic vol]Ordered By: Tejinder Peraza on 09-15-2022 Platelet mean volume (Bld) [Entitic vol] 9.8 fL 6.3-10.7 [facility] Platelet morphology finding [Identifier] in BloodOrdered By: Tejinder Peraza on 09-15-2022 Platelet morphology finding Nom (Bld) Normal Normal [facility] Platelets Auto (Bld) [#/Vol] Ordered By: Tejinder Peraza on 09-15-2022 Platelets (Bld) [#/Vol] 212 10*3/uL 150-450 [facility] Poikilocytosis [Presence] in Blood by Light microscopyOrdered By: Tejinder Peraza on 09-15-2022 Poikilocytosis LM Ql (Bld) Slight [facility] Polychromasia [Presence] in Blood by Light microscopyOrdered By: Tejinder Peraza on 09-15-2022 Polychromasia LM Ql (Bld) Slight [facility] RBC Auto (Bld) [#/Vol]Ordere d By: Tejinder Guadalupemarii on 09-15-2022 RBC (Bld) [#/Vol] 4.42 10*6/uL 3.60-5.00 [facility] RBC morphologyOrdered By: Dhaval Guadalupemarii on 09-15-2022 RBC morphology finding Nom (Bld) N/A [facility] WBC Auto (Bld) [#/Vol]Ordere d By: Tejinder Guadalupemarii on 09-15-2022 WBC (Bld) [#/Vol] 7.5 10*3/uL 3.8-11.6 [facility] AFP (TUMOR MARKER)on 022 AFP, Serum, Tumor Marker <1.8 Normal 0.0-4.7 [facility] Comment on above: Result Comment: [employer] Electrochemiluminescence Immunoassay (ECLIA) . Values obtained with different assay methods or kits cannot be used interchangeably. Results cannot be interpreted as absolute evidence of the presence or absence of malignant disease. . This test is not interpretable in females. Performed By: #### U MICRO, PREGU, ERUR #### [facility] [address] [address] [address] Adam Mejía CA 125on 08-06-2022 Cancer Antigen (CA) 125 29.7 U/mL Normal 0.0-38.1 [facility] Comment on above: Result Comment: [employer] Electrochemiluminescence Immunoassay (ECLIA) . Values obtained with different assay methods or kits cannot be used interchangeably. Results cannot be interpreted as absolute evidence of the presence or absence of malignant disease. Performed By: #### U MICRO, PREGU, ERUR #### [facility] [address] [address] [address] Adam Mejía CEAon 08-06-2022 CEA 0.9 ng/mL Normal 0.0-4.7 [facility] Comment on above: Result Comment: Nons mokers <3.9 Smokers <5.6 . [employer] Electrochemiluminescence Immunoassay (ECLIA) . Values obtained with different assay methods or kits cannot be used interchangeably. Results cannot be interpreted as absolute evidence of the presence or absence of malignant disease. Performed By: #### U MICRO, PREGU, ERUR #### [facility] [id number] Adam Mejía HCG QUANT TUMOR MARKERon HCG QNT TUMOR MARKER <1 Normal [facility] Comment on above: Result Comment: [employer] [...] and its performance characteristics determined by [employer]. It has not been cleared or approved by the Food and Drug Administration for use as a tumor marker. . This test is not interpretable as a tumor marker in females. Performed By: #### H CGTMOR #### [facility] [facility] [address] [address] [address] Adam Mejía LDHon 08-05-2022 LDH 164 U/L Normal 81-234 [facility] Comment on above: Performed By: #### U MICRO, PREGU, ERUR #### [facility] [id number] Adam Mejía US PELVIS TRANSVAGon 022 [...] by: KALPESH FOWLER Date: 2022-07-29 06:26 Normal [facility] PAP ACOG PANEL 2: 30 to 67on 07-10-2022 . . Normal [facility] Comment on above: Result Comment: Perf ormed at: WB Performed By: #### [id number] #### [facility] [address] [address] [address] Adam Mejía Age Gdln ACOG Testing - Normal [facility] Comment on above: Performed By: #### [id number] #### [facility] [address] [address] [address] Adam Mejía DIAGNOSIS: Comment Normal [facility] Comment on above: Result Comment: NEGA TIVE FOR INTRAEPITHELIAL LESION OR MALIGNANCY. Performed at: WB Performed By: #### [id number] #### [facility] [address] [address] [address] Adam Mejía HPV Aptima Negative Normal Negative [facility] Comment on above: Result Comment: This nucleic acid amplification test detects fourteen high-risk HPV types (16,18,31,33,35,39,45,51,52,56,58,59,66,68) without differentiation. Performed at: =G Performed By: #### [id number] #### [facility] [address] [address] [address] Adam Mejía Methodology: Comment Normal [facility] Comment on above: Result Comment: This liquid based ThinPrep(R) pap test was screened with the use of an image guided system. Performed at: WB Performed By: #### [id number] #### [facility] [address] [place] [address] Dr. Adam Mejía Note: Comment Normal [facility] Comment on above: Result Comment: The Pap smear is a screening test designed to aid in the detection of premalignant and malignant conditions of the uterine cervix. It is not a diagnostic procedure and should not be used as the sole means of detecting cervical cancer. Both false-positive and false-negative reports do occur. . Performed at: WB Performed By: #### [id number] #### [facility] [address] [place] [address] Dr. Adam Mejía Performed by: Comment Normal [facility] Comment on above: Result Comment: [employer] (ASCP) Performed at: WB Performed By: #### [id number] #### [facility] [address] [place] [address] Dr. Adam Mejía Specimen adequacy: Comment Normal [facility] Comment on above: Result Comment: Sati sfactory for evaluation. No endocervical component is identified. Performed at: WB Performed By: #### [id number] #### [facility] [address] [place] [address] Dr. Adam Mejía CHLAMYDIA/GONOCOCCUS HIRAM (SW AB/URINE/PAPon 07-05-2022 Chlamydia trachomatis, HIRAM Negative Normal Negative [facility] Comment on above: Performed By: #### C T/NGNA #### [facility] [address] [place] [address] Dr. Adam Mejía Neisseria gonorrhoeae, HIRAM Negative Normal Negative [facility] Comment on above: Performed By: #### C T/NGNA #### [facility] [address] [place] [address] Dr. Adam Mejía VAGINITIS/VAGINOSIS DNA PROB [place] 07-05-2022 [place] species Positive Abnormal Negative [facility] Comment on above: Performed By: #### V AGINT #### [facility] [address] [place] [address] Dr. Adam Mejía Gardnerella vaginalis Positive Abnormal Negative [facility] Comment on above: Performed By: #### V AGINT #### [facility] [address] [place], [place] [address] Dr. Adam Mejía Trichomonas vaginalis Negative Normal Negative [facility] Comment on above: Performed By: #### V AGINT #### [facility] [address] [place], [place] [address] Dr. Adam Mejía Activated partial thrombopla stin time (aPTT) in platelet poor plasma by coagulation aOrdered By: Frank Silva on 07-04-2022 aPTT Coag (PPP) [Time] 30.9 s 25.1-36.5 [facility] Albumin [Mass/volume] in Ser um or PlasmaOrdered By: Frank Silva on 07-04-2022 Albumin [Mass/Vol] 3.6 g/dL 3.2-5.5 [facility] Automated erythrocytes count in urine sediment (number/area)Ordered By: Frank Silva on 07-04-2022 RBC Auto (Urine sed) [#/Area] 3-4 [HPF] 0-4 [facility] Automated leukocytes count i n urine sediment (number/area)Ordered By: Frank Silva on 07-04-2022 WBC Auto (Urine sed) [#/Area] 0-1 [HPF] 0-4 [facility] Basophils Auto (Bld) [#/Vol] Ordered By: Frank Silva on 07-04-2022 Basophils (Bld) [#/Vol] 0.0 10*3/uL 0.0-0.2 [facility] Basophils/100 WBC Auto (Bld) Ordered By: Frank Silva on 07-04-2022 Basophils/100 WBC (Bld) 0.4 % . [facility] Bilirubin Test strip Ql (U)O rdered By: Frank Silva on 07-04-2022 Bilirubin Ql (U) Negative Negative [facility] Color Auto (U)Ordered By: Godfrey Silva on 07-04-2022 Color (U) Yellow Yellow [facility] Creatinine and Glomerular fi ltration rate.predicted panel (S/P/Bld)Ordered By: Frank Silva on 07-04-2022 Creatinine [Mass/Vol] 0.80 mg/dL 0.44-1.03 [facility] Direct bilirubin measurement Ordered By: Frank Silva on 07-04-2022 Bilirubin.direct [Mass/Vol] mg/dL 0.0-0.4 [facility] Eosinophils Auto (Bld) [#/Vo l]Ordered By: Frank Silva on 07-04-2022 Eosinophils (Bld) [#/Vol] 0.1 10*3/uL 0.0-0.45 [facility] Eosinophils/100 WBC Auto (Bl d)Ordered By: Frank Silva on 07-04-2022 Eosinophils/100 WBC (Bld) 1.2 % . [facility] Erythrocyte distribution wid th Auto (RBC) [Ratio]Ordered By: Frank Silva on 07-04-2022 Erythrocyte distribution width (RBC) [Ratio] 14.9 % 11.9-15.3 [facility] Estimated glomerular filtrat ion rate (GFR) non- AmericanOrdered By: Frank Silva on 07-04-2022 GFR/1.73 sq M.predicted among non-blacks MDRD (S/P/Bld) [Vol rate/Area] > 60 mL/Min [facility] Globulin Calc (S) [Mass/Vol] Ordered By: Frank Silva on 07-04-2022 Globulin (S) [Mass/Vol] 3.3 g/dL [facility] HCG ( test) IA.rapi d Ql (U)Ordered By: Frank Silva on 07-04-2022 HCG ( test) Ql (U) Negative [facility] Hematocrit Auto (Bld) [Volum e fraction]Ordered By: Frank Silva on 07-04-2022 Hematocrit (Bld) [Volume fraction] 32.0 % 34.0-46.4 [facility] Hemoglobin [Mass/volume] in BloodOrdered By: Frank Silva on 07-04-2022 Hemoglobin (Bld) [Mass/Vol] 9.7 g/dL 11.8-15.4 [facility] Ketones Auto test strip (U) [Mass/Vol]Ordered By: Frank Silva on 07-04-2022 Ketones (U) [Mass/Vol] Trace Negative [facility] - Chemistry and C hemistry - challengeOrdered By: Frank Silva on 07-04-2022 Lipase [Catalytic activity/Vol] 43.0 U/L 22-51 [facility] - CoagulationOrde red By: Frank Silva on 07-04-2022 PT Coag (PPP) [Time] 13.3 s 9.0-12.9 [facility] - Hematology and Cell countsOrdered By: Frank Silva on 07-04-2022 Nucleated RBC/100 WBC (Bld) [Ratio] 0.1 % 0-0.5 [facility] - UrinalysisOrder ed By: Frank Silva on 07-04-2022 Hyaline casts LM Ql (Urine sed) 0-8 [LPF] 0-8 [facility] Leukocytes [#/volume] in Blo od by Automated countOrdered By: Frank Silva on 07-04-2022 WBC (Bld) [#/Vol] 8.7 10*3/uL 4.5-11.0 [facility] Lymphocytes Auto (Bld) [#/Vo l]Ordered By: Frank Silva on 07-04-2022 Lymphocytes (Bld) [#/Vol] 1.2 10*3/uL 1.00-4.8 [facility] Lymphocytes/100 WBC Auto (Bl d)Ordered By: Frank Silva on 07-04-2022 Lymphocytes/100 WBC (Bld) 14.2 % . [facility] MCH Auto (RBC) [Entitic mass ]Ordered By: Frank Silva on 07-04-2022 MCH (RBC) [Entitic mass] 21.4 pg 24.7-34.3 [facility] MCHC Auto (RBC) [Mass/Vol]Or dered By: Frank Silva on 07-04-2022 MCHC (RBC) [Mass/Vol] 30.4 g/dL 32.0-35.0 [facility] MCV Auto (RBC) [Entitic vol] Ordered By: Frank Silva on 07-04-2022 MCV (RBC) [Entitic vol] 70.4 fL 80-100 [facility] Monocytes Auto (Bld) [#/Vol] Ordered By: Frank Silva on 07-04-2022 Monocytes (Bld) [#/Vol] 0.4 10*3/uL 0.0-0.8 [facility] Monocytes/100 WBC Auto (Bld) Ordered By: Frank Silva on 07-04-2022 Monocytes/100 WBC (Bld) 5.0 % . [facility] Neutrophils Auto (Bld) [#/Vo l]Ordered By: Frank Silva on 07-04-2022 Neutrophils (Bld) [#/Vol] 6.9 10*3/uL 1.8-7.7 [facility] Neutrophils/100 WBC Auto (Bl d)Ordered By: Frank Silva on 07-04-2022 Neutrophils/100 WBC (Bld) 79.2 % . [facility] Nitrite Test strip Ql (U)Ord ered By: Frank Silva on 07-04-2022 Nitrite Ql (U) Negative Negative [facility] No Panel InformationOrdered By: Frank Silva on 07-04-2022 Estimated GFR () > 60 mL/Min [facility] Comment on above: GFR estimated refere nce range: According to KDOQI guidelines, <60 ml/min/1.73m2 is sufficient to diagnose a patient with chronic kidney disease. Pharmacy Creatinine Clearance (Chem 98.82 [facility] Platelet mean volume Auto (B ld) [Entitic vol]Ordered By: Frank Silva on 07-04-2022 Platelet mean volume (Bld) [Entitic vol] 9.5 fL 6.3-10.7 [facility] Platelet poor plasma interna tional normalized ratio (INR) by coagulation assay (relatOrdered By: Frank Silva on 07-04-2022 INR Coag (PPP) [Relative time] 1.2 {INR} [facility] Comment on above: INR Therapeutic Rang [...] 07-04-2022 Platelets (Bld) [#/Vol] 258 10*3/uL 150-450 [facility] Protein Auto test strip (U) [Mass/Vol]Ordered By: Frank Silva on 07-04-2022 Protein (U) [Mass/Vol] Negative Negative [facility] Protein [Mass/volume] in Ser um or PlasmaOrdered By: Frank Silva on 07-04-2022 Protein [Mass/Vol] 6.9 g/dL 6.1-7.9 [facility] RBC Auto (Bld) [#/Vol]Ordere d By: Frank Silva on 07-04-2022 RBC (Bld) [#/Vol] 4.54 10*6/uL 3.60-5.00 [facility] Serum or plasma alanine keene otransferase measurement without P-5'-P (enzymatic activiOrdered By: Frank Silva on 07-04-2022 ALT No additional P-5'-P [Catalytic activity/Vol] 15 U/L [facility] Serum or plasma albumin/glob ulin mass ratioOrdered By: Frank Silva on 07-04-2022 Albumin/Globulin [Mass ratio] 1.1 {ratio} [facility] Serum or plasma alkaline jared sphatase measurement (enzymatic activity/volume)Ordered By: Frank Silva on 07-04-2022 ALP [Catalytic activity/Vol] 50 U/L 32-92 [facility] Serum or plasma anion gap de terminationOrdered By: Frank Silva on 07-04-2022 Anion gap [Moles/Vol] 11.7 mmol/L 6.0-15.0 [facility] Serum or plasma aspartate am inotransferase measurement (enzymatic activity/volume)Ordered By: Frank Silva on 07-04-2022 AST [Catalytic activity/Vol] 14 U/L [facility] Serum or plasma calcium marychuy urement (mass/volume)Ordered By: Frank Silva on 07-04-2022 Calcium [Mass/Vol] 8.9 mg/dL 8.2-10.2 [facility] Serum or plasma chloride nemo surement (moles/volume)Ordered By: Frank Silva on 07-04-2022 Chloride [Moles/Vol] 105 mmol/L 95-114 [facility] Serum or plasma glucose marychuy urement (mass/volume)Ordered By: Frank Silva on 07-04-2022 Glucose [Mass/Vol] 97 mg/dL 70-100 [facility] Comment on above: ADA recommended refe rence rangeRandom Glucose Reference Range is dependent on time and content of last meal. Glucose of more than 200 mg/dL in a nonstressed, ambulatory subject supports the diagnosis of Diabetes Mellitus. Serum or plasma non-glucuron idated bilirubin measurement (mass/volume)Ordered By: Frank Silva on 07-04-2022 Bilirubin.indirect [Mass/Vol] TNP [facility] Comment on above: Test not performed Serum or plasma potassium me asurement (moles/volume)Ordered By: Frank Silva on 07-04-2022 Potassium [Moles/Vol] 3.7 mmol/L 3.5-5.1 [facility] Serum or plasma sodium measu rement (moles/volume)Ordered By: Frank Silva on 07-04-2022 Sodium [Moles/Vol] 136 mmol/L 136-146 [facility] Serum or plasma total biliru bin measurement (mass/volume)Ordered By: Frank Silva on 07-04-2022 Bilirubin [Mass/Vol] 0.5 mg/dL 0.3-1.2 [facility] Serum or plasma total carbon dioxide measurement (moles/volume)Ordered By: Frank Silva on 07-04-2022 CO2 [Moles/Vol] 23.0 mmol/L 22.0-30.0 [facility] Serum or plasma urea nitroge n measurement (mass/volume)Ordered By: Frank Silva on 07-04-2022 Urea nitrogen [Mass/Vol] 6 mg/dL 9-23 [facility] Specific gravity Auto test s trip (U) [Rel density]Ordered By: Frank Silva on 07-04-2022 Specific gravity (U) [Rel density] 1.010 1.001-1.03 0 [facility] Squamous epithelial cells de tection in urine sediment by light microscopyOrdered By: Frank Silva on 07-04-2022 Epithelial cells.squamous LM Ql (Urine sed) 0-1 [HPF] 0-2 [facility] Urine bacteria detection by automated methodOrdered By: Frank Silva on 07-04-2022 Bacteria Auto Ql (U) None seen None Seen [facility] Urine clarity by refractomet ry automatedOrdered By: Frank Silva on 07-04-2022 Clarity Refractometry automated (U) Clear Clear [facility] Urine glucose measurement by automated test strip (mass/volume)Ordered By: Frank Silva on 07-04-2022 Glucose Auto test strip (U) [Mass/Vol] Normal mg/dL Normal [facility] Urine hemoglobin detection b y automated test stripOrdered By: Frank Silva on 07-04-2022 Hemoglobin Auto test strip Ql (U) Trace Negative [facility] Urine leukocyte esterase det ection by automated test stripOrdered By: Frank Silva on 07-04-2022 Leukocyte esterase Auto test strip Ql (U) 1+ Negative [facility] Urobilinogen Auto test strip (U) [Mass/Vol]Ordered By: Frank Silva on 07-04-2022 Urobilinogen (U) [Mass/Vol] Normal mg/dL Normal [facility] pH Auto test strip (U)Ordere d By: Frank Silva on 07-04-2022 pH (U) 6.5 [pH] 5.0-9.0 [facility] Activated partial thrombopla stin time (aPTT) in platelet poor plasma by coagulation aOrdered By: Marvin Serrano on 06-01-2022 aPTT Coag (PPP) [Time] 30.4 s 25.1-36.5 [facility] Basophils Auto (Bld) [#/Vol] Ordered By: Marvin Serrano on 06-01-2022 Basophils (Bld) [#/Vol] 0.1 10*3/uL 0.0-0.2 [facility] Basophils/100 WBC Auto (Bld) Ordered By: Marvin Serrano on 06-01-2022 Basophils/100 WBC (Bld) 1.1 % . [facility] Bilirubin Test strip Ql (U)O rdered By: Marvin Serrano on 06-01-2022 Bilirubin Ql (U) Negative Negative [facility] Blood hemoglobin measurement (mass/volume)Ordered By: Marvin Serrano on 06-01-2022 Hemoglobin (Bld) [Mass/Vol] 10.1 g/dL 11.8-15.4 [facility] Blood leukocytes automated c ount (number/volume)Ordered By: Marvin Serrano on 06-01-2022 WBC (Bld) [#/Vol] 7.6 10*3/uL 4.5-11.0 [facility] Body fluid albumin measureme nt (mass/volume)Ordered By: Marvin Serrano on 06-01-2022 Albumin (Body fld) [Mass/Vol] 3.7 g/dL 3.2-5.5 [facility] Color Auto (U)Ordered By: Dane Serrano on 06-01-2022 Color (U) Yellow Yellow [facility] Creatinine and Glomerular fi ltration rate.predicted panel (S/P/Bld)Ordered By: Marvin Serrano on 06-01-2022 Creatinine [Mass/Vol] 0.82 mg/dL 0.44-1.03 [facility] Eosinophils Auto (Bld) [#/Vo l]Ordered By: Marvin Serrano on 06-01-2022 Eosinophils (Bld) [#/Vol] 0.2 10*3/uL 0.0-0.45 [facility] Eosinophils/100 WBC Auto (Bl d)Ordered By: Marvin Serrano on 06-01-2022 Eosinophils/100 WBC (Bld) 2.4 % . [facility] Erythrocyte distribution wid th Auto (RBC) [Ratio]Ordered By: Marvin Serrano on 06-01-2022 Erythrocyte distribution width (RBC) [Ratio] 14.3 % 11.9-15.3 [facility] Estimated glomerular filtrat ion rate (GFR) non- AmericanOrdered By: Marvin Serrano on 06-01-2022 GFR/1.73 sq M.predicted among non-blacks MDRD (S/P/Bld) [Vol rate/Area] > 60 mL/Min [facility] Globulin Calc (S) [Mass/Vol] Ordered By: Marvin Serrano on 06-01-2022 Globulin (S) [Mass/Vol] 3.4 g/dL [facility] HCG ( test) IA.rapi d Ql (U)Ordered By: Marvin Serrano on 06-01-2022 HCG ( test) Ql (U) Negative [facility] Hematocrit Auto (Bld) [Volum e fraction]Ordered By: Marvin Serrano on 06-01-2022 Hematocrit (Bld) [Volume fraction] 32.2 % 34.0-46.4 [facility] Ketones Auto test strip (U) [Mass/Vol]Ordered By: Marvin Serrano on 06-01-2022 Ketones (U) [Mass/Vol] Negative Negative [facility] - CoagulationOrde red By: Marvin Serrano on 06-01-2022 PT Coag (PPP) [Time] 12.4 s 9.0-12.9 [facility] - Hematology and Cell countsOrdered By: Marvin Serrano on 06-01-2022 Nucleated RBC/100 WBC (Bld) [Ratio] 0.1 % 0-0.5 [facility] Lymphocytes Auto (Bld) [#/Vo l]Ordered By: Marvin Serrano on 06-01-2022 Lymphocytes (Bld) [#/Vol] 2.7 10*3/uL 1.00-4.8 [facility] Lymphocytes/100 WBC Auto (Bl d)Ordered By: Marvin Serrano on 06-01-2022 Lymphocytes/100 WBC (Bld) 35.8 % . [facility] MCH Auto (RBC) [Entitic mass ]Ordered By: Marvin Serrano on 06-01-2022 MCH (RBC) [Entitic mass] 22.0 pg 24.7-34.3 [facility] MCHC Auto (RBC) [Mass/Vol]Or dered By: Marvin Serrano on 06-01-2022 MCHC (RBC) [Mass/Vol] 31.3 g/dL 32.0-35.0 [facility] MCV Auto (RBC) [Entitic vol] Ordered By: Marvin Serrano on 06-01-2022 MCV (RBC) [Entitic vol] 70.4 fL 80-100 [facility] Monocytes Auto (Bld) [#/Vol] Ordered By: Marvin Serrano on 06-01-2022 Monocytes (Bld) [#/Vol] 0.5 10*3/uL 0.0-0.8 [facility] Monocytes/100 WBC Auto (Bld) Ordered By: Marvin Serrano on 06-01-2022 Monocytes/100 WBC (Bld) 7.1 % . [facility] Neutrophils Auto (Bld) [#/Vo l]Ordered By: Marvin Serrano on 06-01-2022 Neutrophils (Bld) [#/Vol] 4.1 10*3/uL 1.8-7.7 [facility] Neutrophils/100 WBC Auto (Bl d)Ordered By: Marvin Serrano on 06-01-2022 Neutrophils/100 WBC (Bld) 53.6 % . [facility] Nitrite Test strip Ql (U)Ord ered By: Marvin Serrano on 06-01-2022 Nitrite Ql (U) Negative Negative [facility] No Panel InformationOrdered By: Marvin Serrano on 06-01-2022 Estimated GFR () > 60 mL/Min [facility] Comment on above: GFR estimated refere nce range: According to KDOQI guidelines, <60 ml/min/1.73m2 is sufficient to diagnose a patient with chronic kidney disease. Pharmacy Creatinine Clearance (Chem 97.22 [facility] Platelet mean volume Auto (B ld) [Entitic vol]Ordered By: Marvin Serrano on 06-01-2022 Platelet mean volume (Bld) [Entitic vol] 9.9 fL 6.3-10.7 [facility] Platelet poor plasma interna tional normalized ratio (INR) by coagulation assay (relatOrdered By: Marvin Serrano on 06-01-2022 INR Coag (PPP) [Relative time] 1.1 {INR} [facility] Comment on above: INR Therapeutic Rang [...] 06-01-2022 Platelets (Bld) [#/Vol] 218 10*3/uL 150-450 [facility] Protein Auto test strip (U) [Mass/Vol]Ordered By: Marvin Serrano on 06-01-2022 Protein (U) [Mass/Vol] Negative Negative [facility] Protein [Mass/volume] in Ser um or PlasmaOrdered By: Marvin Serrano on 06-01-2022 Protein [Mass/Vol] 7.1 g/dL 6.1-7.9 [facility] RBC Auto (Bld) [#/Vol]Ordere d By: Marvin Serrano on 06-01-2022 RBC (Bld) [#/Vol] 4.57 10*6/uL 3.60-5.00 [facility] Serum or plasma alanine keene otransferase measurement without P-5'-P (enzymatic activiOrdered By: Marvin Serrano on 06-01-2022 ALT No additional P-5'-P [Catalytic activity/Vol] 12 U/L 10-60 [facility] Serum or plasma albumin/glob ulin mass ratioOrdered By: Marvin Serrano on 06-01-2022 Albumin/Globulin [Mass ratio] 1.1 {ratio} [facility] Serum or plasma alkaline jared sphatase measurement (enzymatic activity/volume)Ordered By: Marvin Serrano on 06-01-2022 ALP [Catalytic activity/Vol] 46 U/L 32-92 [facility] Serum or plasma anion gap de terminationOrdered By: Marvin Serrano on 06-01-2022 Anion gap [Moles/Vol] 15.3 mmol/L 6.0-15.0 [facility] Serum or plasma aspartate am inotransferase measurement (enzymatic activity/volume)Ordered By: Marvin Serrano on 06-01-2022 AST [Catalytic activity/Vol] 13 U/L 10-42 [facility] Serum or plasma calcium marychuy urement (mass/volume)Ordered By: Marvin Serrano on 06-01-2022 Calcium [Mass/Vol] 9.1 mg/dL 8.2-10.2 [facility] Serum or plasma chloride nemo surement (moles/volume)Ordered By: Marvin Serrano on 06-01-2022 Chloride [Moles/Vol] 103 mmol/L 95-114 [facility] Serum or plasma glucose marychuy urement (mass/volume)Ordered By: Marvin Serrano on 06-01-2022 Glucose [Mass/Vol] 113 mg/dL 70-100 [facility] Comment on above: ADA recommended [...] on 06-01-2022 Potassium [Moles/Vol] 3.0 mmol/L 3.5-5.1 [facility] Serum or plasma sodium measu rement (moles/volume)Ordered By: Marvin Serrano on 06-01-2022 Sodium [Moles/Vol] 137 mmol/L 136-146 [facility] Serum or plasma total biliru bin measurement (mass/volume)Ordered By: Marvin Serrano on 06-01-2022 Bilirubin [Mass/Vol] 0.4 mg/dL 0.3-1.2 [facility] Serum or plasma total carbon dioxide measurement (moles/volume)Ordered By: Marvin Serrano on 06-01-2022 CO2 [Moles/Vol] 21.7 mmol/L 22.0-30.0 [facility] Serum or plasma urea nitroge n measurement (mass/volume)Ordered By: Marvin Serrano on 06-01-2022 Urea nitrogen [Mass/Vol] 11 mg/dL 9-23 [facility] Specific gravity Auto test s trip (U) [Rel density]Ordered By: Marvin Serrano on 06-01-2022 Specific gravity (U) [Rel density] 1.003 1.001-1.03 0 [facility] Urine clarity by refractomet ry automatedOrdered By: Marvin Serrano on 06-01-2022 Clarity Refractometry automated (U) Clear Clear [facility] Urine glucose measurement by automated test strip (mass/volume)Ordered By: Marvin Serrano on 06-01-2022 Glucose Auto test strip (U) [Mass/Vol] Normal mg/dL Normal [facility] Urine hemoglobin detection b y automated test stripOrdered By: Marvin Serrano on 06-01-2022 Hemoglobin Auto test strip Ql (U) Negative Negative [facility] Urine leukocyte esterase det ection by automated test stripOrdered By: Marvin Serrano on 06-01-2022 Leukocyte esterase Auto test strip Ql (U) Negative Negative [facility] Urobilinogen Auto test strip (U) [Mass/Vol]Ordered By: Marvin Serrano on 06-01-2022 Urobilinogen (U) [Mass/Vol] Normal mg/dL Normal [facility] pH Auto test strip (U)Ordere d By: Marvin Serrano on 06-01-2022 pH (U) 7.0 [pH] 5.0-9.0 [facility] Office Visit (Oncology Surge ry)on 04-21-2022 [...] need for her to return to her 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 Pendleton for discussion of ongoing treatment. [...] hoursAbdominal wall (more content not included)... Normal [employer] CT ABD/PELV W CONon 04-19-20 CT ABD/PELV [...] Lenny TANNER Date: 2022-04-18 23:01 Normal [facility] ER URINE PROFILEon 2 Bilirubin Ql (U) Negative Normal NEGATIVE [facility] Comment on above: Performed By: #### U MICRO, PREGU, ERUR #### [facility] [address] [place] [address] Dr. Adam Mejía Clarity (U) CLEAR Normal CLEAR [facility] [facility] Comment on above: Performed By: #### U MICRO, PREGU, ERUR #### [facility] [address] [place] [address] Dr. Adam Mejía Color (U) YELLOW Normal YELLOW [facility] Comment on above: Performed By: #### U MICRO, PREGU, ERUR #### [facility] [address] [place] [address] Dr. Adam Mejía ERUDYLLAND A micrscopic examina tion will be performed if indicated. Normal [facility] Comment on above: Performed By: #### U MICRO, PREGU, ERUR #### [facility] [address] [place] [address] Dr. Adam Mejía Glucose Ql (U) Negative Normal NEGATIVE [facility] Comment on above: Performed By: #### U MICRO, PREGU, ERUR #### [facility] [address] [place] [address] Dr. Adam Mejía Hemoglobin Ql (U) SMALL Abnormal NEGATIVE [facility] Comment on above: Performed By: #### U MICRO, PREGU, ERUR #### [facility] [address] [place] [address] Dr. Adam Mejía Ketones Ql (U) >=80 Abnormal NEGATIVE [facility] Comment on above: Performed By: #### U MICRO, PREGU, ERUR #### [facility] [address] [place] [address] Dr. Adam Mejía LEUKOCYTES Negative Normal NEGATIVE [facility] Comment on above: Performed By: #### U MICRO, PREGU, ERUR #### [facility] [address] [place] [address] Dr. Adam Mejía Nitrite Ql (U) Negative Normal NEGATIVE [facility] Comment on above: Performed By: #### U MICRO, PREGU, ERUR #### [facility] [address] [place] [address] Dr. Adam Mejía pH (U) 6.5 [pH] Normal 5-9 [facility] Comment on above: Performed By: #### U MICRO, PREGU, ERUR #### [facility] [address] [place] [address] Dr. Adam Mejía SPEC GRAVITY 1.015 Normal 1.005-<=1. 025 [facility] Comment on above: Performed By: #### U MICRO, PREGU, ERUR #### [facility] [address] [place] [address] Dr. Adam Mejía UA PROTEIN Negative Normal NEGATIVE/ TRACE [facility] Comment on above: Performed By: #### U MICRO, PREGU, ERUR #### [facility] [address] [place] [address] Dr. Adam Mejía UR MICRO IND INDICATED Normal [facility] Comment on above: Performed By: #### U MICRO, PREGU, ERUR #### [facility] [address] [place] [address] Dr. Adam Mejía Urobilinogen Qn (U) 0.2 {Brinda'U}/dL Normal 0.2 - 1. 0 [facility] Comment on above: Performed By: #### U MICRO, PREGU, ERUR #### [facility] [address] [place] [address] Dr. Adam Mejía URon 04-18-2022 , QUAL Negative Normal NEGATIVE [facility] Comment on above: Performed By: #### U MICRO, PREGU, ERUR #### [facility] [address] [place] [address] Dr. Adam Mejía URINE MICROSCOPIC ONLYon BACTERIA TRACE Abnormal NONE SEEN [facility] Comment on above: Performed By: #### U MICRO, PREGU, ERUR #### [facility] [address] [address] [address] Adam Mejía Bacteria identified Cx Nom (U) NOT INDICATED Normal [facility] Comment on above: Performed By: #### U MICRO, PREGU, ERUR #### [facility] [address] [place] [address] Dr. Adam Mejía CAST NONE SEEN Normal NONE SEEN [facility] Comment on above: Performed By: #### U MICRO, PREGU, ERUR #### [facility] [address] [place] [address] Dr. Adam Mejía Crystals LM Nom (Urine sed) NONE SEEN Normal NONE SEEN [facility] Comment on above: Performed By: #### U MICRO, PREGU, ERUR #### [facility] [address] [place] [address] Dr. Adam Mejía Epithelial cells LM Ql (Urine sed) FEW Abnormal NONE SEEN /RARE [facility] Comment on above: Performed By: #### U MICRO, PREGU, ERUR #### [facility] [address] [place] [address] Dr. Adam Mejía MUCOUS NONE SEEN Normal NONE SEEN [facility] Comment on above: Performed By: #### U MICRO, PREGU, ERUR #### [facility] [address] [address] [address] Adam Mejía RBC 0-2 Normal 0-2 [facility] Comment on above: Performed By: #### U MICRO, PREGU, ERUR #### [facility] [address] [address] [address] Adam Mejía WBC 0-2 Abnormal NONE SEEN [facility] Comment on above: Performed By: #### U MICRO, PREGU, ERUR #### [facility] [address] [address] [address] Adam Mejía Body fluid albumin measureme nt (mass/volume)Ordered By: Yudelka Lopez on 04-14-2022 Albumin (Body fld) [Mass/Vol] 3.9 g/dL 3.2-5.5 [facility] Creatinine and Glomerular fi ltration rate.predicted panel (S/P/Bld)Ordered By: Yudelka Lopez on 04-14-2022 Creatinine [Mass/Vol] 0.77 mg/dL 0.44-1.03 [facility] Estimated glomerular filtrat ion rate (GFR) non- AmericanOrdered By: Yudelka Lopez on 04-14-2022 GFR/1.73 sq M.predicted among non-blacks MDRD (S/P/Bld) [Vol rate/Area] > 60 mL/Min [facility] Globulin Calc (S) [Mass/Vol] Ordered By: Yudelka Lopez on 04-14-2022 Globulin (S) [Mass/Vol] 3.0 g/dL [facility] No Panel InformationOrdered By: Yudelka Lopez on 04-14-2022 Estimated GFR () > 60 mL/Min [facility] Comment on above: GFR estimated refere nce range: According to KDOQI guidelines, <60 ml/min/1.73m2 is sufficient to diagnose a patient with chronic kidney disease. Pharmacy Creatinine Clearance (Chem N/A [facility] Protein [Mass/volume] in Ser um or PlasmaOrdered By: Yudelka Lopez on 04-14-2022 Protein [Mass/Vol] 6.9 g/dL 6.1-7.9 [facility] Serum or plasma alanine keene otransferase measurement without P-5'-P (enzymatic activiOrdered By: Yudelka Lopez on 04-14-2022 ALT No additional P-5'-P [Catalytic activity/Vol] 13 U/L 10-60 [facility] Serum or plasma albumin/glob ulin mass ratioOrdered By: Yudelka Lopez on 04-14-2022 Albumin/Globulin [Mass ratio] 1.3 {ratio} [facility] Serum or plasma alkaline jared sphatase measurement (enzymatic activity/volume)Ordered By: Yudelka Lopez on 04-14-2022 ALP [Catalytic activity/Vol] 44 U/L 32-92 [facility] Serum or plasma aspartate am inotransferase measurement (enzymatic activity/volume)Ordered By: Yudelka Lopez on 04-14-2022 AST [Catalytic activity/Vol] 14 U/L 10-42 [facility] Serum or plasma calcium marychuy urement (mass/volume)Ordered By: Yudelka Lopez on 04-14-2022 Calcium [Mass/Vol] 9.5 mg/dL 8.2-10.2 [facility] Serum or plasma chloride nemo surement (moles/volume)Ordered By: Yudelka Lopez on 04-14-2022 Chloride [Moles/Vol] 104 mmol/L 95-114 [facility] Serum or plasma glucose marychuy urement (mass/volume)Ordered By: Yudelka Lopez on 04-14-2022 Glucose [Mass/Vol] 85 mg/dL 70-100 [facility] Comment on above: ADA recommended [...] on 04-14-2022 Potassium [Moles/Vol] 4.2 mmol/L 3.5-5.1 [facility] Serum or plasma sodium measu rement (moles/volume)Ordered By: Yudelka Lopez on 04-14-2022 Sodium [Moles/Vol] 136 mmol/L 136-146 [facility] Serum or plasma total biliru bin measurement (mass/volume)Ordered By: Yudelka Lopez on 04-14-2022 Bilirubin [Mass/Vol] 0.2 mg/dL 0.3-1.2 [facility] Serum or plasma total carbon dioxide measurement (moles/volume)Ordered By: Yudelka Lopez on 04-14-2022 CO2 [Moles/Vol] 24.5 mmol/L 22.0-30.0 [facility] Serum or plasma urea nitroge n measurement (mass/volume)Ordered By: Yudelka Lopez on 04-14-2022 Urea nitrogen [Mass/Vol] 6 mg/dL 9- [facility] AMYLASEon 04-11-2022 Amylase [Catalytic activity/Vol] 54 U/L Normal 25-115 [facility] Comment on above: Performed By: #### A MY, CMP, LIPA #### [facility] [address] [place] [address] Dr. Adam Mejía CBC AUTO DIFFon 04-11-2022 BASO # 0.0 103/ul Normal 0.0-0.1 [facility] Comment on above: Performed By: #### C BC #### [facility] [address] [place] [address] Dr. Adam Mejía Basophils/100 WBC (Bld) 0.2 % Normal 0.2-2.0 [facility] Comment on above: Performed By: #### C BC #### [facility] [address] [place] [address] Dr. Adam Mejía EO # 0.1 103/ul Normal 0.0-0.7 [facility] Comment on above: Performed By: #### C BC #### [facility] [address] [place] [address] Dr. Adam Mejía Eosinophils/100 WBC (Bld) 0.6 % Critically low 0.9-7.0 [facility] Comment on above: Performed By: #### C BC #### [facility] [address] [place] [address] Dr. Adam Mejía Erythrocyte distribution width (RBC) [Ratio] 13.9 % Normal 11.0-15.0 [facility] Comment on above: Performed By: #### C BC #### [facility] [address] [place] [address] Dr. Adam Mejía Hematocrit (Bld) [Volume fraction] 31.4 % Critically low 36.0-48.0 [facility] Comment on above: Performed By: #### C BC #### [facility] [address] [place] [address] Dr. Adam Mejía Hemoglobin (Bld) [Mass/Vol] 9.8 g/dL Critically low 12.0-16.0 [facility] Comment on above: Performed By: #### C BC #### [facility] [address] [place] [address] Dr. Adam Mejía IG # 0.03 10e3/ul Normal 0.00-0.03 [facility] Comment on above: Performed By: #### C BC #### [facility] [address] [place] [address] Dr. Adam Mejía IG % 0.3 % Normal 0.0-0.5 [facility] Comment on above: Performed By: #### C BC #### [facility] [address] [place] [address] Dr. Adam Mejía LYMPH # 1.1 103/ul Critically low 1.2-3.8 [facility] Comment on above: Performed By: #### C BC #### [facility] [address] [place] [address] Dr. Adam Mejía Lymphocytes/100 WBC (Bld) 9.3 % Critically low 20.5-60.0 [facility] Comment on above: Performed By: #### C BC #### [facility] [address] [place] [address] Dr. Adam Mejía MANUAL DIFF REQ NO Normal [facility] Comment on above: Performed By: #### C BC #### [facility] [address] [place] [address] Dr. Adam Mejía MCH (RBC) [Entitic mass] 22.5 pg Critically low 26.7-34.0 [facility] Comment on above: Performed By: #### C BC #### [facility] [address] [place] [address] Dr. Adam Mejía MCHC (RBC) [Mass/Vol] 31.2 g/dL Normal 29.9-35.2 [facility] Comment on above: Performed By: #### C BC #### [facility] [address] [place] [address] Dr. Adam Mejía MCV (RBC) [Entitic vol] 72.0 fL Critically low 81.0-99.0 [facility] Comment on above: Performed By: #### C BC #### [facility] [address] [place] [address] Dr. Adam Mejía MONO # 0.6 103/ul Normal 0.3-0.8 [facility] Comment on above: Performed By: #### C BC #### [facility] [address] [place] [address] Dr. Adam Mejía Monocytes/100 WBC (Bld) 4.6 % Normal 1.7-12.0 [facility] Comment on above: Performed By: #### C BC #### [facility] [address] [place] [address] Dr. Adam Mejía NEUT # 10.2 103/ul Critically high 1.4-6.5 [facility] Comment on above: Performed By: #### C BC #### [facility] [address] [place] [address] Dr. Adam Mejía Neutrophils/100 WBC (Bld) 85.0 % Critically high 43.0-75.0 [facility] Comment on above: Performed By: #### C BC #### [facility] [address] [place] [address] Dr. Adam Mejía Platelet mean volume (Bld) [Entitic vol] 12.1 fL Normal 9.5-13.5 [facility] Comment on above: Performed By: #### C BC #### [facility] [address] [place] [address] Dr. Adam Mejía PLT 270 103/ul Normal 150-450 [facility] Comment on above: Performed By: #### C BC #### [facility] [address] [place] [address] Dr. Adam Mejía RBC 4.36 106/ul Normal 4.20-5.40 [facility] Comment on above: Performed By: #### C BC #### [facility] [address] [place] [address] Dr. Adam Mejía WBC 12.0 103/ul Critically high 4.0-11.0 [facility] Comment on above: Performed By: #### C BC #### [facility] [address] [address] [address] Adam Mej[address] ABD/PELV W CONon [...] NADIA MORROW Date: 2022-04-11 07:25 Normal [facility] LIPASEon 04-11-2022 Lipase [Catalytic activity/Vol] 152.0 U/L Normal 73.0-393.0 [facility] Comment on above: Performed By: #### A MY, CMP, LIPA #### [facility] [address] [place], [place] [address] Dr. Adam Mejía PREG HCG QUALon 04-11-2022 , QUAL Negative Normal NEGATIVE [facility] Comment on above: Performed By: #### U MICRO, PREGU, ERUR #### [facility] [address] [address] [address] Adam Mejía PROF 14(COMP METB)on 022 Albumin [Mass/Vol] 3.8 g/dL Normal 3.4-5.0 [facility] Comment on above: Performed By: #### U MICRO, PREGU, ERUR #### [facility] [address] [address] [address] Adam Mejía Albumin/Globulin [Mass ratio] 0.9 {ratio} Normal [facility] Comment on above: Performed By: #### U MICRO, PREGU, ERUR #### [facility] [address] [address] [address] Adam Mejía ALP [Catalytic activity/Vol] 51 U/L Normal 46-116 [facility] Comment on above: Performed By: #### U MICRO, PREGU, ERUR #### [facility] [address] [address] [address] Adam Mejía ALT [Catalytic activity/Vol] 11 U/L Critically low 14-59 [facility] Comment on above: Performed By: #### U MICRO, PREGU, ERUR #### [facility] [address] [address] [address] Adam Mejía Anion gap [Moles/Vol] 11.9 mmol/L Normal [facility] Comment on above: Performed By: #### U MICRO, PREGU, ERUR #### [facility] [address] [address] [address] Adam Mejía AST [Catalytic activity/Vol] 14 U/L Critically low 15-37 [facility] Comment on above: Performed By: #### U MICRO, PREGU, ERUR #### [facility] [address] [address] [address] Adam Mejía Bilirubin [Mass/Vol] 0.4 mg/dL Normal 0.2-1.0 [facility] Comment on above: Performed By: #### U MICRO, PREGU, ERUR #### [facility] [address] [address] [address] Adam Mejía Calcium [Mass/Vol] 9.4 mg/dL Normal 8.5-10.1 [facility] Comment on above: Performed By: #### U MICRO, PREGU, ERUR #### [facility] [address] [address] [address] Adam Mejía Chloride [Moles/Vol] 104 mmol/L Normal 98-107 [facility] Comment on above: Performed By: #### U MICRO, PREGU, ERUR #### [facility] [address] [address] [address] Adam Mejía CO2 [Moles/Vol] 26.1 mmol/L Normal 21.0-32.0 [facility] Comment on above: Performed By: #### U MICRO, PREGU, ERUR #### [facility] [address] [place] [address] Dr. Adam Mejía Creatinine [Mass/Vol] 0.78 mg/dL Normal 0.55-1.02 [facility] Comment on above: Performed By: #### U MICRO, PREGU, ERUR #### [facility] [address] [place] [address] Dr. Adam Mejía EGFR-AF MEXICAN >60 Normal >=60 [facility] Comment on above: Performed By: #### U MICRO, PREGU, ERUR #### [facility] [address] [place] [address] Dr. Adam Mejía EGFR-NON AF MEXICAN >60 Normal >=60 [facility] Comment on above: Performed By: #### U MICRO, PREGU, ERUR #### [facility] [address] [place] [address] Dr. Adam Mejía Globulin (S) [Mass/Vol] 4.1 g/dL Normal [facility] Comment on above: Performed By: #### U MICRO, PREGU, ERUR #### [facility] [address] [place] [address] Dr. Adam Mejía Glucose [Mass/Vol] 111 mg/dL Critically high 74-106 [facility] Comment on above: Performed By: #### U MICRO, PREGU, ERUR #### [facility] [address] [address] [address] Adam Mejía Potassium [Moles/Vol] 4.0 mmol/L Normal 3.5-5.1 [facility] Comment on above: Performed By: #### U MICRO, PREGU, ERUR #### [facility] [address] [address] [address] Adam Mejía Protein [Mass/Vol] 7.9 g/dL Normal 6.4-8.2 [facility] Comment on above: Performed By: #### U MICRO, PREGU, ERUR #### [facility] [address] [address] [address] Adam Mejía Sodium [Moles/Vol] 138 mmol/L Normal 136-145 [facility] Comment on above: Performed By: #### U MICRO, PREGU, ERUR #### [facility] [address] [place] [address] Dr. Adam Mejía Urea nitrogen [Mass/Vol] 10.0 mg/dL Normal 7.0-18.0 [facility] Comment on above: Performed By: #### U MICRO, PREGU, ERUR #### [facility] [address] [address] [address] Adam Mejía Urea nitrogen/Creatinine [Mass ratio] 12.8 mg/mg Normal [facility] Comment on above: Performed By: #### U MICRO, PREGU, ERUR #### [facility] [address] [address] [address] Adam Mejía XR ABD FLAT UP_PA [...] by: NADIA MORROW Date: 2022-04-11 06:26 Normal [facility] Blood Pressure Cuff Sizeon 0 04-07-2022 Tobacco use status CPHS b) No [facility] Work Phone: Blood Pressure Cuff Size Adult [facility]- [facility] Work Phone: Office Visit (Oncology Surge ry)on 04-07-2022 Follow-up visit Diagnoses/Problems Assessed Abdominal wall mass (969.30) (R22.2) Orders Abdominal wall mass Continue: Ondansetron [...] return. The patient will return to her 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 Pendleton for discussion of ongoing treatment. [...] aPTT Coag (PPP) [Time] 29.4 s 25.1-36.5 [facility] Albumin [Mass/volume] in Ser um or PlasmaOrdered By: Frank Silva on 04-04-2022 Albumin [Mass/Vol] 3.6 g/dL 3.2-5.5 [facility] Automated erythrocytes count in urine sediment (number/area)Ordered By: Janette Dior on 04-04-2022 RBC Auto (Urine sed) [#/Area] 20-49 [HPF] 0-4 [facility] Automated leukocytes count i n urine sediment (number/area)Ordered By: Janette Dior on 04-04-2022 WBC Auto (Urine sed) [#/Area] 10-19 [HPF] 0-4 [facility] Basophils Auto (Bld) [#/Vol] Ordered By: Frank Silva on 04-04-2022 Basophils (Bld) [#/Vol] 0.0 10*3/uL 0.0-0.2 [facility] Basophils/100 WBC Auto (Bld) Ordered By: Frank Silva on 04-04-2022 Basophils/100 WBC (Bld) 0.4 % . [facility] Bilirubin Test strip Ql (U)O rdered By: Janette Dior on 04-04-2022 Bilirubin Ql (U) Negative Negative [facility] Blood hemoglobin measurement (mass/volume)Ordered By: Frank Silva on 04-04-2022 Hemoglobin (Bld) [Mass/Vol] 10.0 g/dL 11.8-15.4 [facility] Blood leukocytes automated c ount (number/volume)Ordered By: Frank Silva on 04-04-2022 WBC (Bld) [#/Vol] 9.8 10*3/uL 4.5-11.0 [facility] Color Auto (U)Ordered By: Anatoliy Dior on 04-04-2022 Color (U) Yellow Yellow [facility] Creatinine and Glomerular fi ltration rate.predicted panel (S/P/Bld)Ordered By: Frank Silva on 04-04-2022 Creatinine [Mass/Vol] 0.93 mg/dL 0.44-1.03 [facility] Eosinophils Auto (Bld) [#/Vo l]Ordered By: Frank Silva on 04-04-2022 Eosinophils (Bld) [#/Vol] 0.0 10*3/uL 0.0-0.45 [facility] Eosinophils/100 WBC Auto (Bl d)Ordered By: Frank Silva on 04-04-2022 Eosinophils/100 WBC (Bld) 0.3 % . [facility] Erythrocyte distribution wid th Auto (RBC) [Ratio]Ordered By: Frank Silva on 04-04-2022 Erythrocyte distribution width (RBC) [Ratio] 14.1 % 11.9-15.3 [facility] Estimated glomerular filtrat ion rate (GFR) non- AmericanOrdered By: Frank Silva on 04-04-2022 GFR/1.73 sq M.predicted among non-blacks MDRD (S/P/Bld) [Vol rate/Area] > 60 mL/Min [facility] Globulin Calc (S) [Mass/Vol] Ordered By: Frank Silva on 04-04-2022 Globulin (S) [Mass/Vol] 3.1 g/dL [facility] HCG ( test) IA.rapi d Ql (U)Ordered By: Janette Dior on 04-04-2022 HCG ( test) Ql (U) Negative [facility] HCG ( test) IA.rapi d Ql (U)Ordered By: Frank Silva on 04-04-2022 HCG ( test) Ql (U) Negative [facility] Hematocrit Auto (Bld) [Volum e fraction]Ordered By: Frank Silva on 04-04-2022 Hematocrit (Bld) [Volume fraction] 31.9 % 34.0-46.4 [facility] Ketones Auto test strip (U) [Mass/Vol]Ordered By: Janette Dior on 04-04-2022 Ketones (U) [Mass/Vol] 4+ Negative Fi [facility] - Chemistry and C hemistry - challengeOrdered By: Frank Silva on 04-04-2022 Natriuretic peptide B (Bld) [Mass/Vol] 44.0 pg/mL 5-100 [facility] - CoagulationOrde red By: Frank Silva on 04-04-2022 PT Coag (PPP) [Time] 14.0 s 9.0-12.9 [facility] - Hematology and Cell countsOrdered By: Frank Silva on 04-04-2022 Nucleated RBC/100 WBC (Bld) [Ratio] 0.0 % 0-0.5 [facility] - UrinalysisOrder ed By: Janette Dior on 04-04-2022 Hyaline casts LM Ql (Urine sed) 0-8 [LPF] 0-8 [facility] Lymphocytes Auto (Bld) [#/Vo l]Ordered By: Frank Silva on 04-04-2022 Lymphocytes (Bld) [#/Vol] 2.1 10*3/uL 1.00-4.8 [facility] Lymphocytes/100 WBC Auto (Bl d)Ordered By: Frank Silva on 04-04-2022 Lymphocytes/100 WBC (Bld) 21.5 % . [facility] MCH Auto (RBC) [Entitic mass ]Ordered By: Frank Silva on 04-04-2022 MCH (RBC) [Entitic mass] 22.2 pg 24.7-34.3 [facility] MCHC Auto (RBC) [Mass/Vol]Or dered By: Frank Silva on 04-04-2022 MCHC (RBC) [Mass/Vol] 31.2 g/dL 32.0-35.0 [facility] MCV Auto (RBC) [Entitic vol] Ordered By: Frank Silva on 04-04-2022 MCV (RBC) [Entitic vol] 71.2 fL 80-100 [facility] Monocytes Auto (Bld) [#/Vol] Ordered By: Frank Silva on 04-04-2022 Monocytes (Bld) [#/Vol] 0.7 10*3/uL 0.0-0.8 [facility] Monocytes/100 WBC Auto (Bld) Ordered By: Frank Silva on 04-04-2022 Monocytes/100 WBC (Bld) 6.9 % . [facility] Neutrophils Auto (Bld) [#/Vo l]Ordered By: Frank Silva on 04-04-2022 Neutrophils (Bld) [#/Vol] 7.0 10*3/uL 1.8-7.7 [facility] Neutrophils/100 WBC Auto (Bl d)Ordered By: Frank Silva on 04-04-2022 Neutrophils/100 WBC (Bld) 70.9 % . [facility] Nitrite Test strip Ql (U)Ord ered By: Janette Dior on 04-04-2022 Nitrite Ql (U) Negative Negative [facility] No Panel InformationOrdered By: Frank Silva on 04-04-2022 Estimated GFR () > 60 mL/Min [facility] Comment on above: GFR estimated refere nce range: According to KDOQI guidelines, <60 ml/min/1.73m2 is sufficient to diagnose a patient with chronic kidney disease. Pharmacy Creatinine Clearance (Chem 84.97 [facility] Platelet mean volume Auto (B ld) [Entitic vol]Ordered By: Frank Silva on 04-04-2022 Platelet mean volume (Bld) [Entitic vol] 9.6 fL 6.3-10.7 [facility] Platelet poor plasma interna tional normalized ratio (INR) by coagulation assay (relatOrdered By: Frank Silva on 04-04-2022 INR Coag (PPP) [Relative time] 1.2 {INR} [facility] Comment on above: INR Therapeutic Rang [...] 04-04-2022 Platelets (Bld) [#/Vol] 224 10*3/uL 150-450 [facility] Protein Auto test strip (U) [Mass/Vol]Ordered By: Janette Dior on 04-04-2022 Protein (U) [Mass/Vol] Trace mg/dL Negative [facility] Protein [Mass/volume] in Ser um or PlasmaOrdered By: Frank Silva on 04-04-2022 Protein [Mass/Vol] 6.7 g/dL 6.1-7.9 [facility] RBC Auto (Bld) [#/Vol]Ordere d By: Frank Silva on 04-04-2022 RBC (Bld) [#/Vol] 4.49 10*6/uL 3.60-5.00 [facility] Serum or plasma alanine keene otransferase measurement without P-5'-P (enzymatic activiOrdered By: Frank Silva on 04-04-2022 ALT No additional P-5'-P [Catalytic activity/Vol] 15 U/L 10-60 [facility] Serum or plasma albumin/glob ulin mass ratioOrdered By: Frank Silva on 04-04-2022 Albumin/Globulin [Mass ratio] 1.2 {ratio} [facility] Serum or plasma alkaline jared sphatase measurement (enzymatic activity/volume)Ordered By: Frank Silva on 04-04-2022 ALP [Catalytic activity/Vol] 48 U/L 32-92 [facility] Serum or plasma aspartate am inotransferase measurement (enzymatic activity/volume)Ordered By: Frank Silva on 04-04-2022 AST [Catalytic activity/Vol] 15 U/L 10-42 [facility] Serum or plasma calcium marychuy urement (mass/volume)Ordered By: Frank Silva on 04-04-2022 Calcium [Mass/Vol] 9.0 mg/dL 8.2-10.2 [facility] Serum or plasma chloride nemo surement (moles/volume)Ordered By: Frank Silva on 04-04-2022 Chloride [Moles/Vol] 102 mmol/L 95-114 [facility] Serum or plasma glucose marychuy urement (mass/volume)Ordered By: Frank Silva on 04-04-2022 Glucose [Mass/Vol] 92 mg/dL 70-100 [facility] Comment on above: ADA recommended refe rence range Random Glucose Reference Range is dependent on time and content of last meal. Glucose of more than 200 mg/dL in a nonstressed, ambulatory subject supports the diagnosis of Diabetes Mellitus. Serum or plasma potassium me asurement (moles/volume)Ordered By: Frank Silva on 04-04-2022 Potassium [Moles/Vol] 3.1 mmol/L 3.5-5.1 [facility] Serum or plasma sodium measu rement (moles/volume)Ordered By: Frank Silva on 04-04-2022 Sodium [Moles/Vol] 137 mmol/L 136-146 [facility] Serum or plasma total biliru bin measurement (mass/volume)Ordered By: Frank Silva on 04-04-2022 Bilirubin [Mass/Vol] 0.7 mg/dL 0.3-1.2 [facility] Serum or plasma total carbon dioxide measurement (moles/volume)Ordered By: Frank Silva on 04-04-2022 CO2 [Moles/Vol] 23.6 mmol/L 22.0-30.0 [facility] Serum or plasma urea nitroge n measurement (mass/volume)Ordered By: Frank Silva on 04-04-2022 Urea nitrogen [Mass/Vol] 8 mg/dL 9- [facility] Specific gravity Auto test s trip (U) [Rel density]Ordered By: Janette Dior on 04-04-2022 Specific gravity (U) [Rel density] 1.027 1.001-1.03 0 [facility] Squamous epithelial cells de tection in urine sediment by light microscopyOrdered By: Janette Dior on 04-04-2022 Epithelial cells.squamous LM Ql (Urine sed) 07-05 [HPF] 0-2 [facility] Troponin I.cardiac [Mass/vol ume] in Serum or Plasma by High sensitivity methodOrdered By: Frank Silva on 04-04-2022 Troponin I.cardiac High sensitivity method [Mass/Vol] 3 pg/mL 0-15 [facility] Urine bacteria detection by automated methodOrdered By: Janette Dior on 04-04-2022 Bacteria Auto Ql (U) None seen None Seen [facility] Urine clarity by refractomet ry automatedOrdered By: Janette Dior on 04-04-2022 Clarity Refractometry automated (U) Cloudy Clear [facility] Urine glucose measurement by automated test strip (mass/volume)Ordered By: Janette Dior on 04-04-2022 Glucose Auto test strip (U) [Mass/Vol] Normal mg/dL Normal [facility] Urine hemoglobin detection b y automated test stripOrdered By: Janette Dior on 04-04-2022 Hemoglobin Auto test strip Ql (U) 2+ Negative [facility] Urine leukocyte esterase det ection by automated test stripOrdered By: Janette Dior on 04-04-2022 Leukocyte esterase Auto test strip Ql (U) Negative Negative [facility] Urine sediment renal epithel ial cell count by microscopy (number/high power field)Ordered By: Janette Dior on 04-04-2022 Epithelial cells.renal LM.HPF (Urine sed) [#/Area] None seen [HPF] 0-1 [facility] Urobilinogen Auto test strip (U) [Mass/Vol]Ordered By: Janette Dior on 04-04-2022 Urobilinogen (U) [Mass/Vol] Normal mg/dL Normal [facility] pH Auto test strip (U)Ordere d By: Janette Dior on 04-04-2022 pH (U) 6.0 [pH] 5.0-9.0 [facility] HCG,URINEon 04-03-2022 Beta HCG ( test) Ql (U) Negative Normal Negative [facility] Comment on above: Order Comment: poct Performed By: #### H CGU #### [facility] [address] [place] [address] No Panel Informationon 04-03 -[facility] Work Phone: Order Reconciliationon 04-03 Order Reconciliation [...] be shared with your follow-up providers (doctor, research geneticist, physical therapist, etc.). Follow Up with Dr. Crocker in [address] or operate motor vehicles for 24 hours and while taking narcotic pain me (more content not included)... Normal [facility] Surgical Pathology Depar tmenton 04-03-2022 [facility] Surgical Pathology Department Name LEANDRA FONSECA Pathologist: REBECCA LAN MD Date of Procedure: 04/03/2022 Date Received: 04/04/2022 Date Reported 04/17/2022 Submitting Physician: SLY CROCKER MD Location: [facility] Other External # FINAL DIAGNOSIS A. LEFT ABDOMINAL WALL ENDOMETRIOMA: --ENDOMETRIOSIS INVOLVING SUBCUTANEOUS FIBROVASCULAR AND ADIPOSE TISSUES. Electronically Signed Out By REBECCA LAN MD/MRG1 By the signature on this report, the individual or group listed as making the Final Interpretation/Diagnosis certifies that they have reviewed this case. Diagnostic interpretation performed at [facility] [address] [place] [address] Clinical History: Physician Contact Number: [phone] Fixative (A): Formalin Clinical Diagnosis History LEFT [...] fibrous cut surfaces admixed with yellow adipose. 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 Summary of Cassettes: Specimen Label Site A 1-2 medial tip, full-thickness, bisected 3-4 lateral, full-thickness, bisected 5-7 public service representative sections of fibrous tissue to closest superior margin 8-10 public service representative sections of fibrous tissue to closest inferior margin mjr/04/06/2022 [facility] Department of Pathology [address] [place] [address] Normal [facility] Comment on above: Performed By: #### U HCS #### [facility] Surgical Pathology Department [address] [facility] [address] Urine Teston 04-03 HCG ( test) Ql (U) Negative Negative [facility] [address] Work Phone: COVID-19 Positive/NegativeOr dered By: Sly Crocker on 03-31-2022 SARS-CoV-2 (COVID-19) N gene HIRAM+probe Ql (Resp) Negative Negative [facility] Comment on above: Testing for SARS-CoV -2 by RT-PCR This test was developed and its performance characteristics determined by [employer] ([employer] and validated at the [facility]. This test has not been FDA [...] (COVID-19) RNA HIRAM+probe Ql (Unsp spec) N/A [facility] Patient Profile - Preop v3on 03-31-2022 Patient Profile - Preop v3 Patient Profile - Preop: Initial Info: Patient DemographicsName: LEANDRA FONSECA Date: 1990 Address: [address] [place] [address] Primary Phone [phone] Instructions Givenappropriate clothing, bring list of medications, bring responsible adult as the scoop driver (procedure may be cancelled if no scoop driver), insurance information, remove jewerly/piercings How to be AddressedAshley Spoken Language PreferredEnglish Source of Informationpatient Stated Reason for AdmissionLeft abdominal wall tumor resection Primary Contact Name and NumberBoyfriend- Deantrae [phone] Medications Brought to [facility] General Health: Weight in kg75.4 kilogram(s) Weight in tjy849.2 pound(s) Weight Methodactual (measured) Scale Typestanding Height [...] child(uriah) Living Arrangementshouse Resource/Environmental Concernsnone Anticipated Transition [facility] Anticipated at Transitionnone Tobacco Use: Tobacco Useno Pre-op Checklist: Arrival [id number] Arrival Time11:16 Procedure Typeabdominal wall tumor resection NPOyes Last Food [id number] 21:00 Last Clear Fluid [id number] 21:00 ID Band On Patientpatient ID (name), [...] Medical History, Active Electronic Signatures: Anna Worthington (RN) (Signed 31-Mar-2022 13:12) Authored: Initial Info, General Health, Health Mgmt, Relationship/Environ, Tobacco Use, Additional Information Aviva Galvez) (Signed 03-Apr-2022 11:57) Authored: General Health, Pre-op Checklist, Additional Information Last Updated: 03-Apr-2022 11:57 by Aviva Galvez (ROMEO) [facility] Office Visit (Oncology Surge ry)on 03-24-2022 Follow-up visit Diagnoses/Problems Assessed Abdominal wall mass (789.30) (R22.2) *Orders Abdominal wall mass CORONAVIRUS 2019 RNA BY PCR, SCREEN ASYMPTOMATIC AMBULATORY; Status:Hold For - Specimen/Data Collection,Retrospective By Protocol Authorization; Requested for:[id number]; Abdominal wall mass (789.30) (R22.2) Patient Discussion/Summary [...] with thyroid problems Social history: Lives in [place] with her boyfriend. She has 2 children [...] Kim Isaac; (more content not included)... Normal [employer] Tobacco Screening.on 022 Fall risk assessment a) No falls within the last year [facility] Work Phone: Tobacco use status CPHS b) No [facility] Work Phone: Automated erythrocytes count in urine sediment (number/area)Ordered By: Jim Vega on 03-15-2022 RBC Auto (Urine sed) [#/Area] 5-9 [HPF] 0-4 [facility] Automated leukocytes count i n urine sediment (number/area)Ordered By: Jim Vega on 03-15-2022 WBC Auto (Urine sed) [#/Area] None seen [HPF] 0-4 [facility] Basophils Auto (Bld) [#/Vol] Ordered By: Jim Vega on 03-15-2022 Basophils (Bld) [#/Vol] 0.1 10*3/uL 0.0-0.2 [facility] Basophils/100 WBC Auto (Bld) Ordered By: Jim Vega on 03-15-2022 Basophils/100 WBC (Bld) 0.7 % . [facility] Bilirubin Test strip Ql (U)O rdered By: Jim Vega on 03-15-2022 Bilirubin Ql (U) Negative Negative [facility] Blood hemoglobin measurement (mass/volume)Ordered By: Jim Vega on 03-15-2022 Hemoglobin (Bld) [Mass/Vol] 9.9 g/dL 11.8-15.4 [facility] Blood leukocytes automated c ount (number/volume)Ordered By: Jim Vega on 03-15-2022 WBC (Bld) [#/Vol] 8.3 10*3/uL 4.5-11.0 [facility] Body fluid albumin measureme nt (mass/volume)Ordered By: Jim Vega on 03-15-2022 Albumin (Body fld) [Mass/Vol] 3.7 g/dL 3.2-5.5 [facility] Color Auto (U)Ordered By: Narinder Vega on 03-15-2022 Color (U) Yellow Yellow [facility] Creatinine and Glomerular fi ltration rate.predicted panel (S/P/Bld)Ordered By: Jim Vega on 03-15-2022 Creatinine [Mass/Vol] 0.85 mg/dL 0.44-1.03 [facility] Eosinophils Auto (Bld) [#/Vo l]Ordered By: Jim Vega on 03-15-2022 Eosinophils (Bld) [#/Vol] 0.2 10*3/uL 0.0-0.45 [facility] Eosinophils/100 WBC Auto (Bl d)Ordered By: Jim Vega on 03-15-2022 Eosinophils/100 WBC (Bld) 2.0 % . [facility] Erythrocyte distribution wid th Auto (RBC) [Ratio]Ordered By: Jim Vega on 03-15-2022 Erythrocyte distribution width (RBC) [Ratio] 14.4 % 11.9-15.3 [facility] Estimated glomerular filtrat ion rate (GFR) non- AmericanOrdered By: Jim Vega on 03-15-2022 GFR/1.73 sq M.predicted among non-blacks MDRD (S/P/Bld) [Vol rate/Area] > 60 mL/Min [facility] Globulin Calc (S) [Mass/Vol] Ordered By: Jim Vega on 03-15-2022 Globulin (S) [Mass/Vol] 3.6 g/dL [facility] HCG ( test) IA.rapi d Ql (U)Ordered By: Jim Vega on 03-15-2022 HCG ( test) Ql (U) Negative [facility] Hematocrit Auto (Bld) [Volum e fraction]Ordered By: Jim Vega on 03-15-2022 Hematocrit (Bld) [Volume fraction] 31.8 % 34.0-46.4 [facility] Ketones Auto test strip (U) [Mass/Vol]Ordered By: Jim Vega on 03-15-2022 Ketones (U) [Mass/Vol] Negative Negative [facility] - Chemistry and C hemistry - challengeOrdered By: Jim Vega on 03-15-2022 Lipase [Catalytic activity/Vol] 53.0 U/L 22-51 [facility] Natriuretic peptide B (Bld) [Mass/Vol] 13.0 pg/mL 5-100 [facility] - Hematology and Cell countsOrdered By: Jim Vega on 03-15-2022 Nucleated RBC/100 WBC (Bld) [Ratio] 0.0 % 0-0.5 [facility] - UrinalysisOrder ed By: Jim Vega on 03-15-2022 Hyaline casts LM Ql (Urine sed) None seen [LPF] 0-8 [facility] Lymphocytes Auto (Bld) [#/Vo l]Ordered By: Jim Vega on 03-15-2022 Lymphocytes (Bld) [#/Vol] 1.9 10*3/uL 1.00-4.8 [facility] Lymphocytes/100 WBC Auto (Bl d)Ordered By: Jim Vega on 03-15-2022 Lymphocytes/100 WBC (Bld) 22.9 % . [facility] MCH Auto (RBC) [Entitic mass ]Ordered By: Jim Vega on 03-15-2022 MCH (RBC) [Entitic mass] 22.2 pg 24.7-34.3 [facility] MCHC Auto (RBC) [Mass/Vol]Or dered By: Jim Vega on 03-15-2022 MCHC (RBC) [Mass/Vol] 31.2 g/dL 32.0-35.0 [facility] MCV Auto (RBC) [Entitic vol] Ordered By: Jim Vega on 03-15-2022 MCV (RBC) [Entitic vol] 71.1 fL 80-100 [facility] Monocytes Auto (Bld) [#/Vol] Ordered By: Jim Vega on 03-15-2022 Monocytes (Bld) [#/Vol] 0.6 10*3/uL 0.0-0.8 [facility] Monocytes/100 WBC Auto (Bld) Ordered By: Jim Vega on 03-15-2022 Monocytes/100 WBC (Bld) 6.9 % . [facility] Neutrophils Auto (Bld) [#/Vo l]Ordered By: Jim Vega on 03-15-2022 Neutrophils (Bld) [#/Vol] 5.6 10*3/uL 1.8-7.7 [facility] Neutrophils/100 WBC Auto (Bl d)Ordered By: Jim Vega on 03-15-2022 Neutrophils/100 WBC (Bld) 67.5 % . [facility] Nitrite Test strip Ql (U)Ord ered By: Jim Vega on 03-15-2022 Nitrite Ql (U) Negative Negative [facility] No Panel InformationOrdered By: Jim Vega on 03-15-2022 Estimated GFR () > 60 mL/Min [facility] Comment on above: GFR estimated refere nce range: According to KDOQI guidelines, <60 ml/min/1.73m2 is sufficient to diagnose a patient with chronic kidney disease. Pharmacy Creatinine Clearance (Chem 93.64 [facility] Platelet mean volume Auto (B ld) [Entitic vol]Ordered By: Jim Vega on 03-15-2022 Platelet mean volume (Bld) [Entitic vol] 9.4 fL 6.3-10.7 [facility] Platelets Auto (Bld) [#/Vol] Ordered By: Jim Vega on 03-15-2022 Platelets (Bld) [#/Vol] 254 10*3/uL 150-450 [facility] Protein Auto test strip (U) [Mass/Vol]Ordered By: Jim Vega on 03-15-2022 Protein (U) [Mass/Vol] Negative Negative [facility] Protein [Mass/volume] in Ser um or PlasmaOrdered By: Jim Vega on 03-15-2022 Protein [Mass/Vol] 7.3 g/dL 6.1-7.9 [facility] RBC Auto (Bld) [#/Vol]Ordere d By: Jim Vega on 03-15-2022 RBC (Bld) [#/Vol] 4.47 10*6/uL 3.60-5.00 [facility] Serum or plasma alanine keene otransferase measurement without P-5'-P (enzymatic activiOrdered By: Jim Vega on 03-15-2022 ALT No additional P-5'-P [Catalytic activity/Vol] 14 U/L 10-60 [facility] Serum or plasma albumin/glob ulin mass ratioOrdered By: Jim Vega on 03-15-2022 Albumin/Globulin [Mass ratio] 1.0 {ratio} [facility] Serum or plasma alkaline jared sphatase measurement (enzymatic activity/volume)Ordered By: Jim Vega on 03-15-2022 ALP [Catalytic activity/Vol] 45 U/L 32-92 [facility] Serum or plasma aspartate am inotransferase measurement (enzymatic activity/volume)Ordered By: Jim Vega on 03-15-2022 AST [Catalytic activity/Vol] 17 U/L 10-42 [facility] Serum or plasma calcium marychuy urement (mass/volume)Ordered By: Jim Vega on 03-15-2022 Calcium [Mass/Vol] 9.4 mg/dL 8.2-10.2 [facility] Serum or plasma chloride nemo surement (moles/volume)Ordered By: Jim Vega on 03-15-2022 Chloride [Moles/Vol] 102 mmol/L 95-114 [facility] Serum or plasma glucose marychuy urement (mass/volume)Ordered By: Jim Vega on 03-15-2022 Glucose [Mass/Vol] 85 mg/dL 70-100 [facility] Comment on above: ADA recommended refe rence range Random Glucose Reference Range is dependent on time and content of last meal. Glucose of more than 200 mg/dL in a nonstressed, ambulatory subject supports the diagnosis of Diabetes Mellitus. Serum or plasma potassium me asurement (moles/volume)Ordered By: Jim Vega on 03-15-2022 Potassium [Moles/Vol] 4.2 mmol/L 3.5-5.1 [facility] Serum or plasma sodium measu rement (moles/volume)Ordered By: Jim Vega on 03-15-2022 Sodium [Moles/Vol] 136 mmol/L 136-146 [facility] Serum or plasma total biliru bin measurement (mass/volume)Ordered By: Jim Vega on 03-15-2022 Bilirubin [Mass/Vol] 0.1 mg/dL 0.3-1.2 [facility] Serum or plasma total carbon dioxide measurement (moles/volume)Ordered By: Jim Vega on 03-15-2022 CO2 [Moles/Vol] 26.3 mmol/L 22.0-30.0 [facility] Serum or plasma urea nitroge n measurement (mass/volume)Ordered By: Jim Vega on 03-15-2022 Urea nitrogen [Mass/Vol] 9 mg/dL 9-23 [facility] Specific gravity Auto test s trip (U) [Rel density]Ordered By: Jim Vega on 03-15-2022 Specific gravity (U) [Rel density] 1.010 1.001-1.03 0 [facility] Squamous epithelial cells de tection in urine sediment by light microscopyOrdered By: Jim Vega on 03-15-2022 Epithelial cells.squamous LM Ql (Urine sed) 0-1 [HPF] 0-2 [facility] Troponin I.cardiac [Mass/vol ume] in Serum or Plasma by High sensitivity methodOrdered By: Jim Vega on 06-29-2022 Troponin I.cardiac High sensitivity method [Mass/Vol] 3 pg/mL 0-15 [facility] Urine bacteria detection by automated methodOrdered By: Jim Vega on 03-15-2022 Bacteria Auto Ql (U) None seen None Seen [facility] Urine clarity by refractomet ry automatedOrdered By: Jim Vega on 03-15-2022 Clarity Refractometry automated (U) Clear Clear [facility] Urine glucose measurement by automated test strip (mass/volume)Ordered By: Jim Vega on 03-15-2022 Glucose Auto test strip (U) [Mass/Vol] Normal mg/dL Normal [facility] Urine hemoglobin detection b y automated test stripOrdered By: Jim Vega on 03-15-2022 Hemoglobin Auto test strip Ql (U) Trace Negative [facility] Urine leukocyte esterase det ection by automated test stripOrdered By: Jim Vega on 03-15-2022 Leukocyte esterase Auto test strip Ql (U) Negative Negative [facility] Urobilinogen Auto test strip (U) [Mass/Vol]Ordered By: Jim Vega on 03-15-2022 Urobilinogen (U) [Mass/Vol] Normal mg/dL Normal [facility] pH Auto test strip (U)Ordere d By: Jim Vega on 03-15-2022 pH (U) 7.5 [pH] 5.0-9.0 [facility] US FINE NEEDLE ASP EXPon US FINE NEEDLE ASP EXP Begin Addendu m #1 COLLECTED DATE/TIME: 02/20/2022 13:18 EST Final Diagnosis Report for [place] (A/B) MASS NEAR SCAR; FINE NEEDLE [...] 2. Pathology results are pending. Normal [facility] US SINGLE QUAD LT LOWERon US [...] KALPESH FOWLER Date: 2022-02-02 09:33 Normal [facility] CT ABD/PELVIS WO CONon 01-11 CT [...] by: JENN GREWAL Date: 2022-01-11 11:40 Normal [facility] Vital Signs Date Time Vital Sign Value Performing Clinician Facility 11-21-2024 09:53-0500 Body height 160 cm Henny Montgomery MD Work Phone: [facility] 11-21-2024 09:53-0500 Body mass index (BMI) [Ratio] 32.64 kg/m2 Henny Montgomery MD Work Phone: [facility] 11-21-2024 09:53-0500 Body weight 83.55 kg Henny Montgomery MD Work Phone: [facility] 11-21-2024 09:53-0500 Diastolic blood pressure 69 mm[Hg] Henny Montgomery MD Work Phone: [facility] 11-21-2024 09:53-0500 Heart rate 87 /min Henny Montgomery MD Work Phone: [facility] 11-21-2024 09:53-0500 Systolic blood pressure 113 mm[Hg] Henny Montgomery MD Work Phone: [facility] 11-10-2024 14:55-0500 Body height 157.48 cm Yudelka Lopez APRN Work Phone: [facility] 11-10-2024 14:55-0500 Body mass index (BMI) [Ratio] 33.6 kg/m2 Yudelka Lopez APRN Work Phone: [facility] 11-10-2024 14:55-0500 Body temperature 97.8 [degF] Yudelka Lopez APRN Work Phone: [facility] 11-10-2024 14:55-0500 Body weight 83.46 kg Yudelka Lopez APRN Work Phone: [facility] 11-10-2024 14:55-0500 Diastolic blood pressure 80 mm[Hg] Yudelka Lopez APRN Work Phone: [facility] 11-10-2024 14:55-0500 Heart rate 9 /min Yudelka Lopez APRN Work Phone: [facility] 11-10-2024 14:55-0500 Respiratory rate 16 /min Yudelka Lopez APRN Work Phone: [facility] 11-10-2024 14:55-0500 SaO2% (BldA) [Mass fraction] 99 % Yudelka Lopez APRN Work Phone: [facility] 11-10-2024 14:55-0500 Systolic blood pressure 121 mm[Hg] Yudelka Lopez APRN Work Phone: [facility] 11-04-2024 09:28-0500 Body mass index (BMI) [Ratio] 31.71 kg/m2 Malcolm Helder DO Work Phone: [facility] 11-04-2024 09:28-0500 Body weight 81.19 kg Malcolm Helder DO Work Phone: [facility] 11-04-2024 09:28-0500 Diastolic blood pressure 70 mm[Hg] Malcolm Helder DO Work Phone: [facility] 11-04-2024 09:28-0500 Systolic blood pressure 120 mm[Hg] Malcolm Helder DO Work Phone: [facility] 10-14-2024 11:37-0500 Body mass index (BMI) [Ratio] 30.08 kg/m2 Priscilla Kelvin PA Work Phone: [facility] 10-14-2024 11:37-0500 Body weight 77.02 kg Priscilla Kelvin PA Work Phone: [facility] 10-14-2024 11:37-0500 Diastolic blood pressure 66 mm[Hg] Priscilla Warren PA Work Phone: [facility] 10-14-2024 11:37-0500 Systolic blood pressure 124 mm[Hg] Priscilla Warren PA Work Phone: [facility] 09-11-2024 10:52-0500 Body mass index (BMI) [Ratio] 28.77 kg/m2 Malcolm Helder DO Work Phone: [facility] 09-11-2024 10:52-0500 Body weight 73.66 kg Malcolm Helder DO Work Phone: [facility] 09-11-2024 10:52-0500 Diastolic blood pressure 62 mm[Hg] Malcolm Helder DO Work Phone: [facility] 09-11-2024 10:52-0500 Systolic blood pressure 128 mm[Hg] Malcolm Helder DO Work Phone: [facility] 08-06-2024 23:53-0500 Diastolic blood pressure 68 mm[Hg] Yudelka Lopez APRN Work Phone: [facility] 08-06-2024 23:53-0500 Heart rate 75 /min Yudelka Lopez APRN Work Phone: [facility] 08-06-2024 23:53-0500 Respiratory rate 22 /min Yudelka Lopez APRN Work Phone: [facility] 08-06-2024 23:53-0500 SaO2% (BldA) [Mass fraction] 100 % Yudelka Lopez POTATO LOADER Work Phone: [facility] 08-06-2024 23:53-0500 Systolic blood pressure 128 mm[Hg] Yudelka Lopez POTATO LOADER Work Phone: [facility] 08-06-2024 21:25-0500 Body height 157.48 cm Yudelka Lopez POTATO LOADER Work Phone: [facility] 08-06-2024 21:25-0500 Body weight 74.3 kg Yudelka Lopez POTATO LOADER Work Phone: [facility] 07-14-2024 15:03-0400 Diastolic blood pressure 75 mm[Hg] POTATO LOADER Yudelka Lopez Work Phone: [facility] 07-14-2024 15:03-0400 Heart rate 71 /min POTATO LOADER Yudelka Lopez Work Phone: [facility] 07-14-2024 15:03-0400 Respiratory rate 18 /min POTATO LOADER Yudelka John Work Phone: [facility] 07-14-2024 15:03-0400 SaO2% (BldA) [Mass fraction] 99 % POTATO LOADER Yudelka Lopez Work Phone: [facility] 07-14-2024 15:03-0400 Systolic blood pressure 114 mm[Hg] POTATO LOADER Yudelka Lopez Work Phone: [facility] 07-14-2024 12:23-0400 Body height 157.48 cm POTATO LOADERFamilia Jha Lopez Work Phone: [facility] 07-14-2024 12:17-0400 Body height 157.48 cm POTATO LOADER Yudelka John Work Phone: [facility] 07-14-2024 12:17-0400 Body temperature 98.4 [degF] POTATO LOADERFamilia Jha Lopez Work Phone: [facility] 07-14-2024 12:17-0400 Body weight 74 kg POTATO LOADERFamilia Jha Lopez Work Phone: [facility] 07-14-2024 11:43-0400 Body height 157.48 cm [facility] 07-14-2024 11:43-0400 Body mass index (BMI) [Ratio] 29 kg/m2 [facility] 07-14-2024 11:43-0400 Body temperature 98.2 [degF] [facility] 07-14-2024 11:43-0400 Body weight 72.12 kg [facility] 07-14-2024 11:43-0400 Diastolic blood pressure 76 mm[Hg] [facility] 07-14-2024 11:43-0400 Heart rate 97 /min [facility] 07-14-2024 11:43-0400 SaO2% (BldA) [Mass fraction] 99 % [facility] 07-14-2024 11:43-0400 Systolic blood pressure 114 mm[Hg] [facility] 09-28-2023 14:34-0500 Body weight 73.93 kg BETTY Lopez Work Phone: [facility] 09-28-2023 14:34-0500 Diastolic blood pressure 79 mm[Hg] BETTY Lopez Work Phone: [facility] 09-28-2023 14:34-0500 Heart rate 66 /min BETTY Lopez Work Phone: [facility] 09-28-2023 14:34-0500 Respiratory rate 20 /min BETTY Lopez Work Phone: [facility] 09-28-2023 14:34-0500 SaO2% (BldA) [Mass fraction] 100 % BETTY Lopez Work Phone: [facility] 09-28-2023 14:34-0500 Systolic blood pressure 119 mm[Hg] BETTY Lopez Work Phone: [facility] 06-27-2023 10:33-0400 Body height 157.48 cm BETTY Lopez Work Phone: [facility] 06-27-2023 10:33-0400 Body temperature 97.7 [degF] BETTY Lopez Work Phone: [facility] 06-27-2023 10:33-0400 Body weight 72.52 kg BETTY Lopez Work Phone: [facility] 06-27-2023 10:33-0400 Diastolic blood pressure 80 mm[Hg] BETTY Lopez Work Phone: [facility] 06-27-2023 10:33-0400 Heart rate 80 /min BETTY Lopez Work Phone: [facility] 06-27-2023 10:33-0400 Respiratory rate 20 /min BETTY Lopez Work Phone: [facility] 06-27-2023 10:33-0400 SaO2% (BldA) [Mass fraction] 100 % BETTY Lopez Work Phone: [facility] 06-27-2023 10:33-0400 Systolic blood pressure 120 mm[Hg] BETTY Lopez Work Phone: [facility] 06-04-2023 18:15-0400 Body height 157.48 cm Marvin Fontenot Other [employer] Other 06-04-2023 18:15-0400 Body mass index (BMI) [Ratio] 30.36 kg/m2 Marvin Fontenot Other [employer] Other 06-04-2023 18:15-0400 Body temperature 98.5 [degF] Marvin Fontenot Other [employer] Other 06-04-2023 18:15-0400 Body weight 75.3 kg Marvin Fontenot Other [employer] Other 06-04-2023 18:15-0400 Respiratory rate 20 /min Marvin Fontenot Other [employer] Other 06-04-2023 18:15-0400 SaO2% (BldA) [Mass fraction] 98 % Marvin Fontenot Other [facility] [employer] Other 03-21-2023 15:04-0400 Body weight 73.16 kg POTATO LOADERFamilia Lopez Work Phone: [facility] 03-21-2023 15:04-0400 Diastolic blood pressure 74 mm[Hg] POTATO LOADER Yudelka Lopez Work Phone: [facility] 03-21-2023 15:04-0400 Heart rate 109 /min POTATO LOADER Yudelka Lopez Work Phone: [facility] 03-21-2023 15:04-0400 Respiratory rate 20 /min POTATO LOADER Yudelka Lopez Work Phone: [facility] 03-21-2023 15:04-0400 SaO2% (BldA) [Mass fraction] 99 % POTATO LOADERFamilia Lopez Work Phone: [facility] 03-21-2023 15:04-0400 Systolic blood pressure 134 mm[Hg] POTATO LOADER Yudelka Lopez Work Phone: [facility] 02-07-2023 10:42-0400 Diastolic blood pressure 70 mm[Hg] POTATO LOADER Yudelka Lopez Work Phone: [facility] 02-07-2023 10:42-0400 Heart rate 82 /min POTATO LOADER Yudelka Lopez Work Phone: [facility] 02-07-2023 10:42-0400 Respiratory rate 18 /min POTATO LOADER Yudelka Lopez Work Phone: [facility] 02-07-2023 10:42-0400 SaO2% (BldA) [Mass fraction] 97 % POTATO LOADER Yudelka Lopez Work Phone: [facility] 02-07-2023 10:42-0400 Systolic blood pressure 118 mm[Hg] POTATO LOADER Yudelka Lopez Work Phone: [facility] 02-07-2023 08:15-0400 Body temperature 98 [degF] POTATO LOADER Yudelka Lopez Work Phone: [facility] 02-06-2023 10:57-0400 Diastolic blood pressure 54 mm[Hg] POTATO LOADER Yudelka Lopez Work Phone: [facility] 02-06-2023 10:57-0400 Heart rate 66 /min POTATO LOADER Yudelka Lopez Work Phone: [facility] 02-06-2023 10:57-0400 Respiratory rate 18 /min POTATO LOADER Yudelka Lopez Work Phone: [facility] 02-06-2023 10:57-0400 SaO2% (BldA) [Mass fraction] 99 % POTATO LOADER Yudelka Lopez Work Phone: [facility] 02-06-2023 10:57-0400 Systolic blood pressure 113 mm[Hg] POTATO LOADER Yudelka Lopez Work Phone: [facility] 02-06-2023 09:14-0400 Body height 160.02 cm POTATO LOADER Yudelka Lopez Work Phone: [facility] 02-06-2023 09:14-0400 Body temperature 98.1 [degF] POTATO LOADER Yudelka Lopez Work Phone: [facility] 02-06-2023 09:14-0400 Body weight 73 kg BETTY Lopez Work Phone: [facility] 01-25-2023 12:38-0400 Diastolic blood pressure 74 mm[Hg] POTATO LOADER Yudelka Lopez Work Phone: [facility] 01-25-2023 12:38-0400 Heart rate 72 /min POTATO LOADER Yudelka Lopez Work Phone: [facility] 01-25-2023 12:38-0400 Respiratory rate 18 /min POTATO LOADER Yudelka Lopez Work Phone: [facility] 01-25-2023 12:38-0400 SaO2% (BldA) [Mass fraction] 100 % POTATO LOADER Yudelka Lopez Work Phone: [facility] 01-25-2023 12:38-0400 Systolic blood pressure 101 mm[Hg] POTATO LOADER Yudelka Lopez Work Phone: [facility] 01-25-2023 08:19-0400 Body temperature 98.3 [degF] POTATO LOADER Yudelka Lopez Work Phone: [facility] 01-02-2023 10:31-0400 Body weight 75.2 kg POTATO LOADER Yudelka Lopez Work Phone: [facility] 12-21-2022 10:00-0400 Body height 157.48 cm Imad Asaad Other [employer] [facility] [employer] Other 12-21-2022 10:00-0400 Body mass index (BMI) [Ratio] 30.36 kg/m2 Imad Asaad Other [employer] Other 12-21-2022 10:00-0400 Body weight 75.3 kg Imad Asaad Other [employer] Other 12-21-2022 10:00-0400 Diastolic blood pressure 68 mm[Hg] Imad Asaad Other [employer] Other 12-21-2022 10:00-0400 Systolic blood pressure 115 mm[Hg] Imad Asaad Other [employer] Other 11-28-2022 20:38-0400 Body height 157.48 cm POTATO LOADER Yudelka Lopez Work Phone: [facility] 11-28-2022 20:38-0400 Body temperature 97.9 [degF] POTATO LOADER Yudelka Lopez Work Phone: [facility] 11-28-2022 20:38-0400 Body weight 75.2 kg POTATO LOADER Yudelka Lopez Work Phone: [facility] 11-28-2022 20:38-0400 Diastolic blood pressure 72 mm[Hg] POTATO LOADER Yudelka Lopez Work Phone: [facility] 11-28-2022 20:38-0400 Heart rate 78 /min POTATO LOADER Yudelka Lopez Work Phone: [facility] 11-28-2022 20:38-0400 Respiratory rate 18 /min POTATO LOADER Yudelka Lopez Work Phone: [facility] 11-28-2022 20:38-0400 SaO2% (BldA) [Mass fraction] 100 % POTATO LOADER Yudelka Lopez Work Phone: [facility] 11-28-2022 20:38-0400 Systolic blood pressure 140 mm[Hg] POTATO LOADER Yudelka Lopez Work Phone: [facility] 11-01-2022 12:30-0500 Diastolic blood pressure 66 mm[Hg] POTATO LOADER Yudelka Lopez Work Phone: [facility] 11-01-2022 12:30-0500 Heart rate 60 /min POTATO LOADER Yudelka John Work Phone: [facility] 11-01-2022 12:30-0500 Respiratory rate 18 /min POTATO LOADER Yudelka John Work Phone: [facility] 11-01-2022 12:30-0500 SaO2% (BldA) [Mass fraction] 100 % POTATO LOADER Yudelka Lopez Work Phone: [facility] 11-01-2022 12:30-0500 Systolic blood pressure 108 mm[Hg] POTATO LOADER Yudelka Lopez Work Phone: [facility] 11-01-2022 10:17-0500 Body temperature 98.9 [degF] POTATO LOADER Yudelka Lopez Work Phone: [facility] 10-10-2022 15:05-0500 Diastolic blood pressure 62 mm[Hg] POTATO LOADER Yudelka Lopez Work Phone: [facility] 10-10-2022 15:05-0500 Heart rate 68 /min POTATO LOADER Yudelka Lopez Work Phone: [facility] 10-10-2022 15:05-0500 Respiratory rate 16 /min POTATO LOADER Yudelka Lopez Work Phone: [facility] 10-10-2022 15:05-0500 Systolic blood pressure 111 mm[Hg] POTATO LOADER Yudelka Lopez Work Phone: [facility] 10-10-2022 13:05-0500 Body temperature 98.3 [degF] POTATO LOADER Yudelka Lopez Work Phone: [facility] 10-10-2022 13:05-0500 SaO2% (BldA) [Mass fraction] 100 % POTATO LOADER Yudelka Lopez Work Phone: [facility] 10-03-2022 10:46-0500 Body weight 72.41 kg POTATO LOADER Yudelka Lopez Work Phone: [facility] 10-03-2022 10:33-0500 Body height 157.48 cm POTATO LOADER Yudelka Lopez Work Phone: [facility] 09-21-2022 14:02-0500 Diastolic blood pressure 54 mm[Hg] POTATO LOADER Yudelka Lopez Work Phone: [facility] 09-21-2022 14:02-0500 Heart rate 72 /min POTATO LOADER Yudelka Lopez Work Phone: [facility] 09-21-2022 14:02-0500 Respiratory rate 18 /min POTATO LOADER Yudelka Lopez Work Phone: [facility] 09-21-2022 14:02-0500 SaO2% (BldA) [Mass fraction] 100 % POTATO LOADER Yudelka Lopez Work Phone: [facility] 09-21-2022 14:02-0500 Systolic blood pressure 105 mm[Hg] POTATO LOADER Yudelka Lopez Work Phone: [facility] 09-21-2022 12:05-0500 Body height 157.48 cm POTATO LOADER Yudelka Lopez Work Phone: [facility] 09-21-2022 12:05-0500 Body temperature 98.2 [degF] POTATO LOADER Yudelka Lopez Work Phone: [facility] 09-21-2022 12:05-0500 Body weight 71.6 kg BETTY Lopez Work Phone: [facility] 07-04-2022 20:47-0400 Body temperature 98.2 [degF] BETTY Lopez Work Phone: [facility] 07-04-2022 20:47-0400 Diastolic blood pressure 72 mm[Hg] POTATO LOADER Yudelka Lopez Work Phone: [facility] 07-04-2022 20:47-0400 Heart rate 83 /min POTATO LOADER Yudelka Lopez Work Phone: [facility] 07-04-2022 20:47-0400 Respiratory rate 18 /min BETTY Lopez Work Phone: [facility] 07-04-2022 20:47-0400 SaO2% (BldA) [Mass fraction] 99 % BETTY Lopez Work Phone: [facility] 07-04-2022 20:47-0400 Systolic blood pressure 119 mm[Hg] BETTY Lopez Work Phone: [facility] 07-04-2022 18:45-0400 Body height 160.02 cm BETTY Lopez Work Phone: [facility] 07-04-2022 18:45-0400 Body weight 73.6 kg BETTY Lopez Work Phone: [facility] 06-01-2022 02:30-0400 Diastolic blood pressure 85 mm[Hg] BETTY Lopez Work Phone: [facility] 06-01-2022 02:30-0400 Heart rate 71 /min POTATO LOADER Yudelka Lopez Work Phone: [facility] 06-01-2022 02:30-0400 Respiratory rate 16 /min BETTY Lopez Work Phone: [facility] 06-01-2022 02:30-0400 SaO2% (BldA) [Mass fraction] 100 % POTATO LOADER Yudelka John Work Phone: [facility] 06-01-2022 02:30-0400 Systolic blood pressure 111 mm[Hg] POTATO LOADER Yudelka John Work Phone: [facility] 06-01-2022 01:29-0400 Body height 160.02 cm POTATO LOADERFamilia Jha John Work Phone: [facility] 06-01-2022 01:29-0400 Body temperature 98 [degF] POTATO LOADER Yudelka John Work Phone: [facility] 06-01-2022 01:29-0400 Body weight 73.48 kg POTATO LOADER Yudelka John Work Phone: [facility] 04-07-2022 12:02-0400 Body height 157.81 cm Yudelka Scott Lopez Work Phone: [facility] Work Phone: 04-07-2022 12:02-0400 Body mass index (BMI) [Ratio] 30.42 kg/m2 Yudelka Scott Lopez Work Phone: [facility] Work Phone: 04-07-2022 12:02-0400 Body surface area Derived from formula 1.77 m2 Yudelka Scott Lopez Work Phone: [facility] Work Phone: 04-07-2022 12:02-0400 Body temperature 97.7 [degF] Yudelka Scott John Work Phone: [facility] Work Phone: 04-07-2022 12:02-0400 Body weight 75.75 kg Yudelka Scott Olpez Work Phone: [facility] Work Phone: 04-07-2022 12:02-0400 Diastolic blood pressure 66 mm[Hg] Yudelka Lopez Work Phone: [facility] Work Phone: 04-07-2022 12:02-0400 Heart rate 73 /min Yudelka Scott John Work Phone: [facility] Work Phone: 04-07-2022 12:02-0400 Respiratory rate 16 /min Yudelka Scott John Work Phone: [facility] Work Phone: 04-07-2022 12:02-0400 SaO2% (BldA) [Mass fraction] 100 % Yudelka Scott Lopez Work Phone: [facility] Work Phone: 04-07-2022 12:02-0400 Systolic blood pressure 137 mm[Hg] Yudelka Scott John Work Phone: [facility] Work Phone: 04-07-2022 12:02-0400 0 1 Yudelka Sonia John Work Phone: [facility] Work Phone: Comment on above: [employer] 04-05-2022 00:01-0400 Diastolic blood pressure 63 mm[Hg] BETTY Lopez Work Phone: [facility] 04-05-2022 00:01-0400 Heart rate 59 /min POTATO LOADERFamilia Lopez Work Phone: [facility] 04-05-2022 00:01-0400 Respiratory rate 20 /min POTATO LOADER Yudelka Lopez Work Phone: [facility] 04-05-2022 00:01-0400 SaO2% (BldA) [Mass fraction] 100 % BETTY Jha Lopez Work Phone: [facility] 04-05-2022 00:01-0400 Systolic blood pressure 117 mm[Hg] POTATO LOADERFamilia Lopez Work Phone: [facility] 04-04-2022 17:01-0400 Body height 157.48 cm BETTY Lopez Work Phone: [facility] 04-04-2022 17:01-0400 Body mass index (BMI) [Ratio] 30.4 kg/m2 BETTY Lopez Work Phone: [facility] 04-04-2022 17:01-0400 Body temperature 98.7 [degF] BETTY Lopez Work Phone: [facility] 04-04-2022 17:01-0400 Body weight 75.6 kg BETTY Lopez Work Phone: [facility] 03-24-2022 11:38-0400 Body height 157.81 cm Unknown Unknown QU-Okhzudhod-Evw dman Work Phone: 03-24-2022 11:38-0400 Body mass index (BMI) [Ratio] 30.08 kg/m2 Unknown Unknown XU-Zdvgszakx-Mkuoemz Work Phone: 03-24-2022 11:38-0400 Body surface area Derived from formula 1.76 m2 Unknown Unknown UD-Oklersfjb-Dfgsxuc Work Phone: 03-24-2022 11:38-0400 Body temperature 98.24 [degF] Unknown Unknown KE-Degppqcno-Ln idman Work Phone: 03-24-2022 11:38-0400 Body weight 74.9 kg Unknown Unknown FM-Mibehfuvk-Blt dman Work Phone: 03-24-2022 11:38-0400 Diastolic blood pressure 78 mm[Hg] Unknown Unknown ZD-Qqzayqgeq-Jaiowyh Work Phone: 03-24-2022 11:38-0400 Heart rate 82 /min Unknown Unknown UE-Lzseomhve-Vjh dman Work Phone: 03-24-2022 11:38-0400 Respiratory rate 16 /min Unknown Unknown LQ-Lsppgrgzb-Ft idman Work Phone: 03-24-2022 11:38-0400 SaO2% (BldA) [Mass fraction] 100 % Unknown Unknown BN-Hyhirxjow-Icoimce Work Phone: 03-24-2022 11:38-0400 Systolic blood pressure 130 mm[Hg] Unknown Unknown FN-Vdqejuwqb-Zcrmywb Work Phone: 03-24-2022 11:38-0400 6 1 Unknown Unknown IM-Xnpnykxdj-Seg dman Work Phone: Comment on above: [employer] 03-15-2022 21:05-0400 Diastolic blood pressure 67 mm[Hg] POTATO LOADER Yudelka Lopez Work Phone: [facility] 03-15-2022 21:05-0400 Heart rate 72 /min POTATO LOADER Yudelka Lopez Work Phone: [facility] 03-15-2022 21:05-0400 Respiratory rate 18 /min POTATO LOADER Yudelka Lopez Work Phone: [facility] 03-15-2022 21:05-0400 SaO2% (BldA) [Mass fraction] 100 % POTATO LOADER Yudelka Lopez Work Phone: [facility] 03-15-2022 21:05-0400 Systolic blood pressure 127 mm[Hg] POTATO LOADER Yudelka Lopez Work Phone: [facility] 03-15-2022 19:22-0400 Body height 157.48 cm POTATO LOADER Yudelka Lopez Work Phone: [facility] 03-15-2022 19:22-0400 Body mass index (BMI) [Ratio] 30.9 kg/m2 POTATO LOADER Yudelka Lopez Work Phone: [facility] 03-15-2022 19:22-0400 Body temperature 98.6 [degF] POTATO LOADER Yudelka Lopez Work Phone: [facility] 03-15-2022 19:22-0400 Body weight 76.7 kg POTATO LOADER Yudelka Lopez Work Phone: [facility] 03-04-2022 01:04-0400 Body height 157.48 cm BETTY Yudelka Lopez Work Phone: [facility] 03-04-2022 01:04-0400 Body mass index (BMI) [Ratio] 30.4 kg/m2 BETTY Lopez Work Phone: [facility] 03-04-2022 01:04-0400 Body weight 75.55 kg BETTY Lopez Work Phone: [facility] 03-04-2022 01:01-0400 Body temperature 98.1 [degF] BETTY Lopez Work Phone: [facility] 03-04-2022 01:01-0400 Diastolic blood pressure 80 mm[Hg] BETTY Lopez Work Phone: [facility] 03-04-2022 01:01-0400 Heart rate 81 /min BETTY Lopez Work Phone: [facility] 03-04-2022 01:01-0400 Respiratory rate 18 /min BETTY Lopez Work Phone: [facility] 03-04-2022 01:01-0400 SaO2% (BldA) [Mass fraction] 97 % BETTY Lopez Work Phone: [facility] 03-04-2022 01:01-0400 Systolic blood pressure 129 mm[Hg] BETTY Lopez Work Phone: [facility] Encounters Encounter Date Encounter Type Care Provider Facility Start: 12-16-2024 End: 12-16-2024 ambulatory [facility] Start: 12-12-2024 End: 12-12-2024 Telemedicine consultation with patient Henny Montgomery MD Work Phone: [facility] Comment on above: Thalassemia alpha ca rrier (Primary Dx); Abnormal genetic test during ; Family history of sickle cell trait; Family history of DVT Start: 12-12-2024 End: 12-12-2024 ambulatory [facility] Start: 12-09-2024 End: 12-09-2024 Orders Only Natalie J Arjun RN [facility] Comment on above: Thalassemia alpha ca rrier (Primary Dx) Start: 12-08-2024 End: 12-08-2024 Documentation procedure Henny Montgomery MD Work Phone: [facility] Start: 12-08-2024 End: 12-08-2024 Telephone encounter Josey Barakatalbino [facility] Start: 12-02-2024 End: 12-02-2024 ambulatory PRISCILLA JORGENSENEY Not Available Start: 11-21-2024 End: 11-21-2024 Office consultation new/estab patient 60 min Henny Montgomery MD Work Phone: [facility] Comment on above: Previous de livery affecting , antepartum (Primary Dx); History of pre-eclampsia in prior , currently in first trimester; History of anemia; Choroid plexus cyst of fetus affecting care of mother, antepartum, fetus 1 Start: 11-21-2024 End: 11-21-2024 Orders Only Priscilla Haider CHIEF H[employer]AN RESOURCES OFFICER [facility] Comment on above: History of anemia (P rimary Dx) Start: 11-18-2024 End: 11-18-2024 Bamboo flowsheet Naresh A Felter POTATO LOADER-[employer] ADMINISTRATOR Work Phone: [facility] Start: 11-18-2024 End: 11-18-2024 Bamboo flowsheet Naresh A Felter POTATO LOADER-[employer] ADMINISTRATOR Work Phone: [facility] Start: 11-18-2024 End: 11-18-2024 Office outpatient visit 15 minutes Naresh A Felter POTATO LOADER-[employer] ADMINISTRATOR Work Phone: [facility] Comment on above: Acne vulgaris (Prima ry Dx); Other atopic dermatitis Start: 11-18-2024 End: 11-18-2024 ambulatory NARESH A FELTER Not Available Start: 11-10-2024 Registered Recurring Yudelka ware APRN [facility] Work Phone: Start: 11-10-2024 End: 11-10-2024 ambulatory Yudelka Lopez POTATO LOADER Work Phone: [facility] Work Phone: Start: 11-10-2024 End: 11-10-2024 Patient encounter procedure [facility]udelka Lopez APRN [facility] Work Phone: Start: 11-07-2024 End: 11-07-2024 External Result Encounter Kelly Hough TELEVISION SCRIPT WRITER Other Phone: [facility] Unsolicited Start: 11-07-2024 End: 11-07-2024 External Result Encounter Kelly Hough TELEVISION SCRIPT WRITER Other Phone: [facility] Unsolicited Start: 11-04-2024 End: 11-04-2024 Patient encounter procedure Malcolm Pendleton DO Work Phone: [facility] Comment on above: 18 weeks gestation o f ; LGSIL of cervix of undetermined significance; Other headache syndrome; Mood disorder (CMS/HCC) Start: 11-04-2024 End: 11-04-2024 ambulatory MALCOLM HELDER Not Available Start: 10-14-2024 End: 10-14-2024 Bamboo flowsheet Priscilla SRIVASTAVA Work Phone: [facility] Start: 10-14-2024 End: 10-20-2024 Bamboo flowsheet Priscilla SRIVASTAVA Work Phone: [facility] Start: 10-14-2024 End: 10-20-2024 Clinisync Result Encounter Priscilla SRIVASTAVA Work Phone: [facility] Unsolicited Start: 10-14-2024 End: 10-14-2024 Patient encounter procedure Priscilla SRIVASTAVA Work Phone: [facility] Start: 10-14-2024 End: 10-14-2024 Periodic preventive med est patient 18-39 yrs Priscilla SRIVASTAVA Work Phone: [facility] Comment on above: 15 weeks gestation o f ; Second trimester ; Well woman exam with routine gynecological exam; Screening, , for anatomic survey; STD exposure; Vaginal discharge Start: 10-14-2024 End: 10-14-2024 ambulatory PRISCILLA WARREN Not Available Start: 09-11-2024 End: 09-11-2024 Bamboo flowsheet Malcolm Helder DO Work Phone: [facility] Start: 09-11-2024 End: 09-11-2024 Bamboo flowsheet Malcolm Helder DO Work Phone: [facility] Start: 09-11-2024 End: 09-11-2024 Clinisync Result Encounter Malcolm Helder DO Work Phone: [facility] Unsolicited Start: 09-11-2024 End: 09-11-2024 ambulatory Malcolm Helder Facility:[facility] Start: 09-11-2024 End: 09-11-2024 Departed Referred Yudelka Lopez APRN Work Phone: [facility] Start: 09-11-2024 End: 09-11-2024 flow sheet Malcolm Helder DO Work Phone: [facility] Comment on above: 10 weeks gestation o f ; First trimester ; Other headache syndrome; Nausea and vomiting during ; Thyroid disease affecting ([facility] Start: 09-11-2024 End: 09-11-2024 ambulatory MALCOLM HELDER Not Available Start: 08-26-2024 End: 08-26-2024 Office outpatient visit 5 minutes [facility] Nurse [facility] Comment on above: GA: 8w2d Start: 08-26-2024 End: 08-26-2024 ambulatory PRISCILLA WARREN Not Available Start: 08-06-2024 End: 08-08-2024 Evaluation and management of inpatient Yudelka Lopez APRN Work Phone: [facility] Work Phone: Start: 08-06-2024 ambulatory Julián Naqvi Facility:[facility] Start: 08-04-2024 End: 08-04-2024 Clinisync Result [...] End: 07-14-2024 Emergency department patient visit BETTY Jha Lopez Work Phone: [facility]-Emergency Room Work Phone: Start: 07-14-2024 End: 07-14-2024 ambulatory [facility] Work Phone: Start: 07-14-2024 End: 07-14-2024 Patient encounter procedure [facility] [place] Work Phone: Start: 02-21-2024 End: 02-21-2024 [facility] Start: 02-21-2024 Encounter for gynecological examination (general) (routine) without abnormal findings [facility] Start: 02-19-2024 End: 02-19-2024 ambulatory MALCOLM HELDER Not Available Start: 01-10-2024 End: 01-10-2024 ambulatory MALCOLM HELDER Not Available Start: 12-10-2023 End: 12-11-2023 ambulatory [facility] Facility:[facility] Start: 12-10-2023 End: 12-10-2023 Patient encounter procedure Manas Simental [facility] Start: 11-24-2023 End: 11-24-2023 Emergency department patient visit Jim Vega Facility:[facility] Start: 11-13-2023 End: 11-13-2023 Emergency department patient visit Frank Silva Facility:[facility] Start: 09-28-2023 End: 09-28-2023 ambulatory POTATO LOADER Yudelka Lopez Work Phone: [facility] Work Phone: Start: 09-28-2023 End: 09-28-2023 Registered Recurring BETTY Lopez Work Phone: [facility]-Cancer Center Work Phone: Start: 09-27-2023 End: 09-27-2023 ambulatory BETTY Lopez Work Phone: [facility] Work Phone: Start: 09-27-2023 End: 09-27-2023 Departed Referred POTATO LOADERFamilia Lopez Work Phone: [facility] Start: 09-27-2023 Registered Recurring BETTY Lopez [facility] Work [facility]: Start: 06-27-2023 End: 06-27-2023 ambulatory POTATO LOADER Yudelka Lopez Work Phone: [facility] Work Phone: Start: 06-27-2023 End: 06-27-2023 Registered Recurring BETTY Lopez Work Phone: [facility] Work Phone: Start: 06-14-2023 Registered Recurring BETTY Lopez [facility]: Start: 06-14-2023 End: 06-14-2023 ambulatory POTATO LOADER Yudelka Lora Lopez Work Phone: [facility] Work Phone: Start: 06-14-2023 End: 06-14-2023 Patient encounter procedure POTATO LOADER Yudelka Lopez Work Phone: [facility]-Lab Main [place] Work Phone: Start: 06-04-2023 End: 06-04-2023 ambulatory Marvin Fontenot Other [place] [employer] Other Start: 06-04-2023 Office outpatient visit 15 minutes Marvin Fontenot [facility] Urgent [facility] Start: 04-24-2023 End: 04-25-2023 ambulatory Kelly Hough Facility:[facility] Start: 04-24-2023 End: 04-24-2023 Patient encounter procedure Lex Elizabeth [facility] General [facility] [place] Start: 04-03-2023 ambulatory Lex Elizabeth Facilit y:[facility] Start: 03-21-2023 End: 03-21-2023 ambulatory BETTY Lopez Work Phone: [facility] Work Phone: Start: 03-21-2023 End: 03-21-2023 Registered Recurring BETTY Lopez Work Phone: [facility]-Cancer Center Work Phone: Start: 03-14-2023 End: 03-14-2023 ambulatory BETTY Lopez Work Phone: [facility] Work Phone: Start: 03-14-2023 End: 03-14-2023 Patient encounter procedure BETTY Lopez Work Phone: [facility]-MRI [facility] [place] Work Phone: Start: 02-07-2023 Registered Recurring BETTY Lopez Work Phone: [facility]-Cancer Center Work Phone: Start: 02-06-2023 End: 02-06-2023 Emergency department patient visit BETTY Lopez Work Phone: [facility]-Emergency Room Work Phone: Start: 01-29-2023 End: 01-29-2023 ambulatory POTATO LOADER Yudelka Lopez Work Phone: [facility] Work Phone: Start: 01-29-2023 End: 01-29-2023 Patient encounter procedure BETTY Lopez Work Phone: [facility]-Nuc Med [facility] [place] Work Phone: Start: 01-25-2023 Registered Recurring POTATO LOADERFamilia Lopez Work Phone: [facility]Cancer [facility] Work Phone: Start: 01-24-2023 End: 01-24-2023 ambulatory POTATO LOADER Yudelka Lopez Work Phone: [facility] Work Phone: Start: 01-24-2023 End: 01-24-2023 Discharged Recurring BETTY Lopez Work Phone: [facility]-Physical Therapy [address] Start: 12-25-2022 End: 12-25-2022 ambulatory POTATO LOADER Yudelka Lopez Work Phone: [facility] Work Phone: Start: 12-25-2022 End: 12-25-2022 Patient encounter procedure BETTY Lopez Work Phone: [facility]-Lab Main [place] Work Phone: Start: 12-25-2022 Registered Recurring BETTY Lopez Work Phone: [facility]-Physical Therapy [address] Start: 12-22-2022 End: 12-22-2022 ambulatory Imad Asaad Other [employer] Other Start: 12-22-2022 Telephone encounter Imad Dimitris [facility] Start: 12-21-2022 End: 12-21-2022 ambulatory Imad Asaad Other [facility] [employer] Other Start: 12-21-2022 [facility] visit new patient Imad Dimitris [facility] Start: 12-07-2022 End: 12-07-[address] DOCTOR MARI Facility:[facility] Start: 11-29-2022 End: 11-30-[address] MALCOLM PENDLETON . Facility:[facility] Start: 11-28-2022 End: 11-28-2022 Emergency department patient visit BETTY Lopez Work Phone: [facility]-Emergency Room Work Phone: Start: 11-01-2022 Registered Recurring BETTY Lopez Work Phone: [facility] Work Phone: Start: 10-12-2022 End: 10-12-2022 ambulatory BETTY Lopez Work Phone: [facility] Work Phone: Start: 10-12-2022 End: 10-12-2022 Patient encounter procedure BETTY Lopez Work Phone: [facility]-Lab Main [place] Work Phone: Start: 10-10-2022 Registered Recurring BETTY Lopez Work Phone: [facility] Work Phone: Start: 10-02-2022 End: 10-02-2022 ambulatory BETTY Lopez Work Phone: [facility] Work Phone: Start: 10-02-2022 End: 10-02-2022 Patient encounter procedure BETTY Lopez Work Phone: [facility]-Ultrasound Main [place] Work Phone: Start: 09-21-2022 End: 09-21-2022 Emergency department patient visit POTATO LOADERFamilia Lopez Work Phone: [facility]-Emergency Room Work Phone: Start: 09-15-2022 End: 09-15-2022 ambulatory POTATO LOADER Yudelka Lopez Work Phone: [facility] Work Phone: Start: 09-15-2022 End: 09-15-2022 Patient encounter procedure BETTY Lopez Work Phone: [facility]-Lab [facility] Work Phone: Start: 08-05-2022 End: 08-06-[address] MALCOLM PENDLETON . Facility:[facility] Start: 07-28-2022 End: 07-29-[address] MALCOLM PENDLETON . Facility:[facility] Start: 07-04-2022 End: 07-04-2022 Emergency department patient visit POTATO LOADERFamilia Lopez Work Phone: [facility]-Emergency Room Start: 07-03-2022 End: 07-03-[address] MALCOLM PENDLETON . Facility:[facility] Start: 06-01-2022 End: 06-01-2022 Emergency department patient visit BETTY Lopez Work Phone: [facility]-Emergency Room Start: 04-21-2022 Patient encounter procedure Yudelka Lopez Work Phone: [facility] Work Phone: Start: 04-21-2022 Postop follow up vis it related to original px Yudelka Sonia Lopez Work Phone: [facility] Work Phone: Start: 04-18-2022 End: 04-19-[address] DOCTOR MARI Facility:[facility] Start: 04-17-2022 Chart Update Yudelka Sonia Lopez Work Phone: [facility] Work Phone: Start: 04-14-2022 End: 04-14-2022 Departed Referred BETTY Lopez Work Phone: [facility] Start: 04-11-2022 End: 04-11-[address] REBECCA GALVEZ Facility:[facility] Start: 04-07-2022 Postop follow up vis it related to original px Yudelka Lopez Work Phone: [facility] Work Phone: Start: 04-04-2022 End: 04-05-2022 Emergency department patient visit BETTY Lopez Work Phone: [facility]-Emergency Room Start: 04-04-2022 AUDIT Yudelka Lopez Work Phone: [facility] Work Phone: Start: 03-31-2022 End: 03-31-2022 Patient encounter procedure BETTY Lopez Work Phone: [facility] Testing Start: 03-24-2022 Patient encounter procedure Unknown Unknown [facility] Work Phone: Start: 03-15-2022 End: 03-15-2022 Emergency department patient visit BETTY Lopez Work Phone: [facility]-Emergency Room Start: 03-04-2022 End: 03-04-2022 Emergency department patient visit BETTY Lopez Work Phone: [facility]-Emergency Room Start: 02-20-2022 End: 02-20-[address] ALFIE MATTHEWS Facility:[facility] Start: 02-02-2022 End: 02-03-[address] ALFIE MATTHEWS Facility:[facility] Start: 01-11-2022 End: 01-12-[address] ALFIE MATTHEWS Facility:[facility] Procedures Date Procedure Procedure Detail Performing Clinician Start: 11-07-2024 Complete blood count with white cell differential, automated Kelly Hough NP Other Phone: Start: 11-04-2024 Urnls dip stick/tablet rgnt non-auto w/o micrscp Malcolm Helder DO Work Phone: Start: 10-14-2024 Urnls dip stick/tablet rgnt non-auto w/o micrscp Priscilla SRIVASTAVA Work Phone: Start: 10-14-2024 IGP,APTIMA HPV,AGE GDLN Priscilla SRIVASTAVA Work Phone: Start: 10-14-2024 Microscopic observation [Identifier] in Cervix by Cyto stain Henny Montgomery MD Work Phone: Start: 09-11-2024 Urine culture Yudelka Lopez APRN Work Phone: Start: 09-11-2024 ALL CBC WITH AUTO DIFF [...] Start: 07-14-2024 SARS-CoV-2, Influenza & RSV (PCR) POTATO LOADER Rowan Lopez Work Phone: Start: 07-14-2024 Viral nucleic [...] Lex Elizabeth Start: 09-03-2019 section Lex Elizabeth Start: 03-17-2019 H/O: section Previous delivery affecting , antepartum Henny Montgomery MD Work Phone: section Lex christina H/O: section Previous c esarean delivery affecting , antepartum Henny Montgomery MD Work Phone: None (qualifier value) Lex Elizabeth Plan of Treatment Date Care Activity Detail Author Start: 10-14-2027 Screening for malign ant neoplasm of cervix Pap Smear [facility] Start: 01-09-2026 DTaP,Tdap and Td Vac cines (3 - Td or Tdap) DTaP,Tdap and Td Vaccines (3 - Td or Tdap) [facility] Start: 11-21-2025 Adult BMI Screening Adult BMI Screen ing [facility] Start: 11-21-2025 Tobacco Screening Tobacco Screening [facility] Start: 11-19-2025 End: 11-19-2025 Patient encounter procedure 11/19/2025 10:50 AM EST Office Visit [facility] [address] [place] [id number] Naresh Chung APRN-[employer] [address] [place] [address] [facility] Start: 02-03-2025 End: 02-03-2025 Patient encounter procedure 02/03/2025 9:15 AM EDT Appointment [facility] - Ultrasound [address] [place] [id number] [facility] - Ultrasound Start: 01-27-2025 End: 01-27-2025 Patient encounter procedure 01/27/2025 2:15 PM EDT Appointment [facility] - Ultrasound [address] [place] [address] [facility] - Ultrasound Start: 01-13-2025 End: 01-13-2025 Patient encounter procedure 01/13/2025 9:15 AM EDT Appointment [facility] - Ultrasound [address] [place] [address] [facility] - Ultrasound Start: 12-30-2024 End: 12-30-2024 Patient encounter procedure 12/30/2024 10:00 AM EDT Appointment [facility] - Ultrasound [address] [place] [address] [facility] - Ultrasound Start: 12-16-2024 End: 12-16-2024 Patient encounter procedure 12/16/2024 9:15 AM EDT Appointment [facility] - Ultrasound [address] [place] [address] [facility] - Ultrasound Start: 12-12-2024 End: 12-12-2024 Telemedicine consultation with patient 12/12/2024 9:00 AM EDT Telemedicine Maternal- Medicine at [facility] [address] [facility] [facility] [place] [address] Henny Montgomery MD [address] [facility], [address] [place] [address] Jo Sue, [facility] [address] [place] [address] Maternal- Medicine at [facility] Start: 12-02-2024 End: 12-02-2024 Patient encounter procedure 12/02/2024 9:30 AM EDT Routine [facility] [address] [place] [phone] Priscilla Warren PA [address] [place] [address] [facility] Start: 11-21-2024 End: 11-21-2025 US MFM with or without consult US MFM with or without consult Imaging Routine History of anemia Expected: 11/21/2024, Expires: 11/21/2025 [facility] Work Phone: Comment on above: Expected: 11/21/2024 , Expires: 11/21/2025 Start: 11-18-2024 End: 11-18-2024 Patient encounter procedure [facility] Comment on above: Arrived Start: 11-11-2024 End: 11-11-2024 Patient encounter procedure 11/11/2024 11:20 AM EST Routine [facility] [address] [place] [phone] Malcolm Pendleton DO [address] [place] [address] [facility] Start: 11-06-2024 End: 11-06-2024 Patient encounter procedure 11/06/2024 10:55 AM EST Office Visit [facility] [address] [place] [address] Naresh Chung APRN-[employer] [address] [place] [address] [facility] Start: 10-14-2024 End: 12-12-2024 Alpha fetoprotein, maternal Alpha fetoprotein, maternal Lab Routine Screening, , for anatomic survey Expected: 10/14/2024 (Approximate), Expires: 12/12/2024 [facility] Comment on above: Expected: 10/14/2024 (Approximate), Expires: 12/12/2024 Start: 10-14-2024 End: 10-14-2025 US for US OB 14+ weeks anatomy scan Imaging Routine Screening, , for anatomic survey Expected: 10/14/2024, Expires: 10/14/2025 [facility] Comment on above: Expected: 10/14/2024 , Expires: 10/14/2025 Start: 10-14-2024 End: 10-14-2024 Patient encounter procedure [facility] Comment on above: Arrived Start: 09-11-2024 End: 09-11-2024 Patient encounter procedure [facility] Comment on above: Arrived Start: 08-26-2024 End: 08-26-2025 ABO/Rh ABO/Rh Lab Routine Missed menses , unspecified gestational age Expected: 08/26/2024 (Approximate), Expires: 08/26/2025 [facility] Comment on above: Expected: 08/26/2024 (Approximate), Expires: 08/26/2025 Start: 08-26-2024 End: 08-26-2025 Blood type and Indirect antibody screen panel - Blood Type and screen Lab Routine Missed menses , unspecified gestational age Expected: 08/26/2024 (Approximate), Expires: 08/26/2025 [facility] Work Phone: Comment on above: Expected: 08/26/2024 (Approximate), Expires: 08/26/2025 Start: 08-26-2024 End: 08-26-2025 Drugs of abuse panel - Urine by Screen method Rapid drug screen, urine Lab Routine , unspecified gestational age Encounter for supervision of normal first in first trimester Expected: 08/26/2024 (Approximate), Expires: 08/26/2025 [facility] Comment on above: Expected: 08/26/2024 (Approximate), Expires: 08/26/2025 Start: 08-26-2024 End: 08-26-2025 US Pelvis transvaginal US OB transvaginal Imaging Routine Missed menses Expected: 08/26/2024 (Approximate), Expires: 08/26/2025 [facility] Comment on above: Expected: 08/26/2024 (Approximate), Expires: 08/26/2025 Start: 08-26-2024 End: 08-26-2024 ambulatory 08/26/2024 9:30 AM EST Initial [facility] [address] [place] [phone] [facility] Start: 08-26-2024 End: 08-26-2024 Professional / ancillary services management 08/26/2024 9:00 AM EST Ancillary Procedure [facility] [address] [place] [address] [facility] Start: 08-07-2024 Hospital admission [facility] Start: 08-07-2024 [facility] Start: 05-18-2024 Influenza vaccination Influenza Vacc ine [facility] Start: 04-23-2024 [facility] Start: 04-04-2024 [facility] Start: 03-31-2024 [facility] Start: 02-22-2024 [facility] Start: 01-30-2024 [facility] Start: 11-05-2023 [facility] Start: 10-10-2023 [facility] Start: 08-07-2023 [facility] Start: 07-24-2023 [facility] Start: 02-07-2023 [facility] Start: 01-31-2023 [facility] Start: 01-26-2023 End: 01-26-2023 [facility] Start: 01-24-2023 End: 01-25-2023 [facility] Start: 11-28-2022 X-ray of left foot XR foot LT min 3V * [facility] Start: 11-28-2022 XR Foot - left GE 3 Views [facility] Start: 11-01-2022 [facility] Start: 10-24-2022 End: 10-25-2022 [facility] Start: 10-17-2022 [facility] Start: 10-13-2022 [facility] Start: 10-12-2022 End: 10-13-2022 [facility] Start: 10-10-2022 [facility] Start: 04-21-2022 POV, Provider: Sly Crocker, Status: Pen, Time: 10:30 AM POV, Provider: Sly Crocker, Status: Pen, Time: 10:30 AM [facility] Work Phone: Start: 2010 Adult BMI Follow Up Plan [facility] Start: 2004 Depression Screening Depression Scre [facility] Albumin [Mass/volume ] in Serum or Plasma [facility] Albumin/Globulin ratio [facility] Bacteria identified in Urine by Culture Urine culture Microbiology Routine Missed menses Ordered: 08/26/2024 [facility] Comment on above: Ordered: 08/26/2024 Calprotectin [Mass/m ass] in Stool [facility] CBC W Auto Different ial panel - Blood CBC and differential Lab Routine Missed menses , unspecified gestational age Ordered: 08/26/2024 [facility] Comment on above: Ordered: 08/26/2024 CHLAMYDIA TRACHOMATI S (GENITO/STI) CHLAMYDIA TRACHOMATIS (GENITO/STI) Lab Routine STD exposure Vaginal discharge Ordered: 10/14/2024 [facility] Comment on above: Ordered: 10/14/2024 Comprehensive metabo lic 1999 panel - Serum or Plasma [facility] Comprehensive metabo lic 1999 panel - Serum or Plasma [facility] Comprehensive metabo lic 1999 panel - Serum or Plasma [facility] Comprehensive metabo lic 1999 panel - Serum or Plasma [facility] Comprehensive metabo lic 1999 panel - Serum or Plasma Comprehensive metabolic panel Lab Routine 11/07/2024 9:38 AM EST [facility] Work Phone: Copper measurement [facility] Cytology Cervical or vaginal smear or scraping study Pap Smear Pathology and Cytology Routine Well woman exam with routine gynecological exam Ordered: 10/14/2024 [facility] Comment on above: Ordered: 10/14/2024 Electrophoresis: [id number] [facility] Electrophoresis: [id number] [facility] Electrophoresis: beta-globulin [facility] Electrophoresis: manohar ma globulin [facility] Endomysial antibody IgA level [facility] Erythrocyte sediment ation rate by Photometric method [facility] Erythropoietin (EPO) [Units/volume] in Serum or Plasma [facility] Ferritin [Mass/volum e] in Serum or Plasma [facility] Gliadin peptide IgA Ab [Units/volume] in Serum [facility] Gliadin peptide IgG Ab [Units/volume] in Serum [facility] Globulin [Mass/volum e] in Serum [facility] Hemoglobin A1c/Hemoglobin.total in Blood Hemoglobin A1c Lab Routine Missed menses , unspecified gestational age Ordered: 08/26/2024 [facility] Comment on above: Ordered: 08/26/2024 Hepatitis B virus gallagher rface Ag [Presence] in Serum or Plasma by Immunoassay Hepatitis B surface antigen Lab Routine Missed menses , unspecified gestational age Ordered: 08/26/2024 [facility] Comment on above: Ordered: 08/26/2024 Hepatitis C virus Ab [Presence] in Serum or Plasma by Immunoassay Hepatitis C antibody Lab Routine Missed menses , unspecified gestational age Ordered: 08/26/2024 [facility] Comment on above: Ordered: 08/26/2024 HIV 1+2 Ab+HIV1 p24 Ag [Presence] in Serum or Plasma by Immunoassay [facility] HIV-1/HIV-2 antigen/antibody combination immunoassay HIV-1 and HIV-2 antibodies Lab Routine Missed menses , unspecified gestational age Ordered: 08/26/2024 [facility] Comment on above: Ordered: 08/26/2024 Human papilloma viru s DNA [Presence] in Unspecified specimen by Probe with amplification HPV DNA probe, amplified Microbiology Routine Well woman exam with routine gynecological exam Ordered: 10/14/2024 [facility] Comment on above: Ordered: 10/14/2024 IgA [Mass/volume] in Serum or Plasma [facility] IgA [Mass/volume] in Serum or Plasma [facility] IgG [Mass/volume] in Serum or Plasma [facility] IgM [Mass/volume] in Serum or Plasma [facility] Iron and Iron bindin g capacity panel - Serum or Plasma Iron and TIBC Lab Routine 11/07/2024 9:38 AM EST [facility] [place] light chains.f ree [Mass/volume] in Serum [facility] [place] light chains.free/Lambda light chains.free [Mass Ratio] in Serum [facility] Lactate dehydrogenas e [Enzymatic activity/volume] in Unspecified specimen [facility] Lambda light chains. free [Mass/volume] in Serum or Plasma [facility] Neisseria gonorrhoea e DNA [Presence] in Unspecified specimen by HIRAM with probe detection Neisseria gonorrhea DNA probe, direct Lab Routine STD exposure Vaginal discharge Ordered: 10/14/2024 [facility] Comment on above: Ordered: 10/14/2024 Patient Education [facility] Work Phone: Patient referral [facility] Work Phone: Protein [Mass/volume ] in Serum or Plasma [facility] Reagin Ab [Presence] in Serum by RPR [facility] Reagin Ab [Presence] in Serum by RPR RPR Lab Routine Missed menses , unspecified gestational age Ordered: 08/26/2024 [facility] Comment on above: Ordered: 08/26/2024 Rubella antibody, IgG Rubella an tibody, IgG Lab Routine Missed menses , unspecified gestational age Ordered: 08/26/2024 [facility] Comment on above: Ordered: 08/26/2024 Serum immunofixation [facility] SURESWAB(R) ADVANCED VAGINITIS PLUS, TMA SURESWAB(R) ADVANCED VAGINITIS PLUS, TMA Pathology and Cytology Routine STD exposure Vaginal discharge Ordered: 10/14/2024 [facility] Work Phone: Comment on above: Ordered: 10/14/2024 Thyroglobulin Ab [Units/volume] in Serum or Plasma [facility] Thyroperoxidase Ab [Units/volume] in Serum or Plasma [facility] Thyrotropin [Units/v olume] in Serum or Plasma TSH Lab Routine Thyroid disease affecting ([facility]/HCC) Ordered: 09/11/2024 [facility] Comment on above: Ordered: 09/11/2024 Thyrotropin receptor Ab [Units/volume] in Serum [facility] Thyroxine (T4) free [Mass/volume] in Serum or Plasma T4, free Lab Routine Thyroid disease affecting ([facility]/HCC) Ordered: 09/11/2024 [facility] [employer] Work Phone: Comment on above: Ordered: 09/11/2024 Tissue transglutamin ase IgA Ab [Units/volume] in Serum [facility] Tissue transglutamin ase IgG Ab [Units/volume] in Serum [facility] Immunizations Immunization Date Immunization Notes Care Provider [facility] 09-01-2021 influenza virus vaccine, unspecified formulation Malagon Sarmini [facility] 01-10-2016 tetanus toxoid, reduced diphtheria toxoid, and acellular pertussis vaccine, adsorbed Malagon Sarmini [facility] 09-30-2009 hepatitis A vaccine, unspecified formulation Malagon Sarmini [facility] 09-30-2009 hepatitis B vaccine, pediatric or pediatric/adolescent dosage Malagon Sarmini [facility] 05-27-2009 hepatitis B vaccine, pediatric or pediatric/adolescent dosage Malagon Sarmini [facility] 03-22-2009 hepatitis A vaccine, unspecified formulation Malagon Sarmini [facility] 03-22-2009 hepatitis B vaccine, pediatric or pediatric/adolescent dosage Malagon Sarmini [facility] 03-22-2009 measles, mumps and rubella virus vaccine Malagon Sarmini [facility] 03-22-2009 meningococcal ACWY vaccine, unspecified formulation Malagon Sarmini [facility] 03-22-2009 tetanus toxoid, reduced diphtheria toxoid, and acellular pertussis vaccine, adsorbed Malagon Sarmini [facility] NEGATED: Highlighted row has not occurred!12-07-2023 influenza virus vaccine, unspecified formulation Malagon Sarmini [facility] Payers Date Payer Category Payer Medicaid [id number] 2024 Medicaid [id number] 2023 Self-pay [id number] 2022 Managed Care Other (unspecified) [employer] [id number] 2022 Private Health Insurance [id number] 2022 Unknown [id number] 1992 Unknown [id number] 2.16.840.1.560752.3.579.2 .593 1992 Unknown [id number] 2.16.840.1.367774.3.579.2 .593 1992 Unknown [id number] 2.16.840.1.826141.3.579.2 .593 1992 Unknown [id number] 2.16.840.1.440321.3.579.2 .593 1992 Unknown [id number] 2.16.840.1.692569.3.579.2 .593 1992 Unknown [id number] 2.16.840.1.127167.3.579.2 .593 1992 Unknown [id number] 2.16.840.1.481711.3.579.2 .593 1992 Unknown [id number] 2.16.840.1.313921.3.579.2 .593 1992 Unknown [id number] 2.16.840.1.105664.3.579.2 .593 1992 Unknown [id number] 2.16.840.1.595422.3.579.2 .593 1992 Unknown [id number] 2.16.840.1.857254.3.579.2 .727 1992 Unknown [id number] 2.16.840.1.313886.3.579.2 .727 1992 Unknown [id number] 2.16.840.1.517937.3.579.2 .9 1992 Unknown [id number] 2.16.840.1.955652.3.579.2 .1258 1992 Unknown [id number] 2.16.840.1.477921.3.579.2 .1258 1992 Unknown [id number] 2.16.840.1.557133.3.579.2 .1258 1992 Unknown [id number] 2.16.840.1.345467.3.579.2 .1258 1992 Unknown [id number] 2.16.840.1.783497.3.579.2 .1258 1992 Unknown [id number] 2.16.840.1.366384.3.579.2 .1258 1992 Unknown [id number] 2.16.840.1.307085.3.579.2 .1258 1992 Unknown [id number] 2.16.840.1.787957.3.579.2 .1285 1992 Unknown [id number] 2.16.840.1.385165.3.579.2 .1285 1992 Unknown [id number] 2.16.840.1.877101.3.579.2 .1285 1992 Unknown [id number] 2.16.840.1.442241.3.579.2 .1285 1992 Unknown [id number] 2.16.840.1.960406.3.579.2 .1285 1959 Private Health Insurance [id number] 1959 Private Health Insurance [id number] 1959 Private Health Insurance [id number] Unknown Unknown [id number] 2.16.840.1.394494.3.579.2 .531 Unknown [id number] 2.16.840.1.644390.3.579.2 .531 Unknown [id number] 2.16.840.1.597286.3.579.2 .531 Unknown [id number] 2.16.840.1.153148.3.579.2 .531 Unknown [id number] 2.16.840.1.962854.3.579.2 .531 Worker's Compensation [id number] Social History Date Type Detail Facility Start: 03-17-2019 End: 04-04-2022 Tobacco smoking status NHIS Never smoked tobacco (finding) [facility] Start: 1990 Sex Assigned At Female F [facility] Start: 10-28-2020 End: 07-09-2023 Sex Assigned At [facility] Tobacco smoking status Never [facility] Start: 07-13-2024 [facility] Start: 02-25-2019 End: 08-07-2024 Sex Female (finding) [facility] Start: 03-17-2019 End: 02-18-2023 Tobacco use and exposure Smokeless tobacco non-user [facility] Start: 02-19-2024 End: 11-18-2024 Alcoholic beverage intake Current drinker of alcohol (finding) [facility] Start: 10-28-2020 End: 02-19-2024 Alcoholic beverage intake [facility] How many standard drinks containing alcohol do you have on a typical day? 1 or 2 [facility] How often do you hav e 6 or more drinks on 1 occasion? Monthly [facility] Start: 1990 Sex assigned at Not on file [facility] Start: 08-07-2024 Tobacco smoking status NDIS Unknown if ever smoked [facility] Start: 11-21-2024 Alcoholic beverage intake Ex-drinker (finding) [facility] NEGATED: Highlighted row [facility] Goals Date Patient Goal Desired Activity /State Clinical Notes 04-03-2022 to 12-12-2024 Jo Sue, [facility] - 12/12/2024 9:00 AM EDTTelephone Encounter - Natalie Díaz RN - 12/09/2024 12:43 PM EDTTelephone Encounter - Natalie Díaz RN - 12/09/2024 12:43 PM EDT Note Date & Type Note Facility 12-12-2024 History of Presen t illness Narrative Summary: [facility] Genetic Counseling Note Images from the original note were not included. Provider at different site/location than patient. I confirmed the patient is located in the [facility]. Leandra Fonseca is currently at home and provider at remote site. The patient consented to be treated electronically via this form of telemedicine. This visit was not related to an office visit or procedure in the past 7 days, and in-office follow up is not recommended in the next 24 hours. Video Visit via Real-time Synchronous Audiovisual Provider Location: [facility] AT [address] [address] Patient Location: Patient's home Patient Location Director Federal: None Video Visit Consent Statement: I discussed risks, benefits, and alternatives of a real-time synchronous audiovisual consultation with the patient (and any accompanying persons) including the risks that the patient's personal health details and medical records will be discussed over real-time, synchronous, interactive video/audio/telecommunication technology, the visit will not be recorded without the express consent of both the provider and the patient, and that there are some limitations compared to [id number] evaluations. We elected to proceed. Name: Leandra Fonseca : 1990 Date of Visit: 12/12/2024 Email: [email or web address] Preferred contact method: mychart, mail, phone Requesting Physician: Malcolm Pendleton DO [address] [place] [address] [place] [address] Reason for Referral: Leandra Fonseca is a 34 y.o. female who presented to [facility] for a genetic counseling visit. Leandra is here at the request of Malcolm Pendleton DO due to abnormal carrier screening results (alpha thalassemia carrier (a-/a-) with increased risk) in . Obstetric and history: Estimated Date of Delivery: 04/05/25 based on 08/26/2024 ultrasound at 8w2d gestation. Gestational age: 23w5d OB History Para Term AB Living 3 2 1 1 0 1 SAB IAB Ectopic Multiple Live Births 0 0 0 0 1 # Outcome Date GA Lbr Heriberto/2nd Weight Sex Type Anes PTL Lv 3 Current 2 Term 09/03/19 39w0d 2.75 kg M 1 01/06/16 31w3d 1.349 kg M Complications: Pre-eclampsia, Severe pre-eclampsia Current history is significant for: right choroid plexus cyst, double renal artery Past /delivery complications: G1 severe preeclampsia Medical History: Past Medical History: Diagnosis Date Acid reflux Alpha thalassemia silent carrier Anemia Endometriosis Fibroid, uterine H/O pre-eclampsia in prior , currently , unspecified trimester H/O delivery, currently History of hyperthyroidism Hypertension Hypothyroidism Irregular menses Menometrorrhagia Overweight (BMI 25.0-29.9) Syncope 06/2016 Varicella Ms. Fonseca denied a personal history of diabetes, infertility and other chronic medical conditions. Medications: No current outpatient medications or facility-administered medications were updated during this visit. Please review referring office's note for the most up to date patient medication list. Exposures/Complications: Alcohol: NO Drugs: NO Cigarettes: NO X-Rays/CT/radiation: NO Illnesses: NO Infections: NO Rashes: NO Spotting/bleeding: NO Other exposures: NO Testing already completed during current : First Trimester Screen: NO Maternal Serum Screen: NO Non Invasive Screen: YES - low risk Performing lab: [facility] Conditions screened: Trisomy 13, Trisomy 18, Trisomy 21, sex chromosome aneuploidies sex predicted: male fraction: 11.8% Carrier Screening: YES - alpha thalassemia carrier (a-/a-), increased risk Performing lab: [facility] Test type: UNITY Screen Carrier Screen with Reflex sgNIPT NOTE: 05/2019 [facility] Comprehensive Carrier Screen (288 genes) - positive carrier for alpha thalassemia (a-/a-) and otherwise negative CVS: NO Amniocentesis: NO TORCH Screening: YES Rubella immune IgG: negative - considered not immune Syphilis Total: non-reactive Other screening/testing: YES Relevant CBC values: Hemoglobin 9.7 g/dL, Hematocrit 30.7%, MCV 73.4%, MCH 23.3 pg, MCHC 31.7 g/dL - low Ultrasounds: Dating ultrasound on 08/26/2024 at 8w2d gestation showed: 1) Single live intrauterine . Anatomy scan on 11/21/2024 at 20w5d gestation showed: 1) Single viable intrauterine consistent with 20w 5d with an MORALES of 04/05/2025. 2) Transvaginal cervical length measures 4.35 cm. 3) Right choroid plexus cyst is identified. 4) Per [facility] guidelines, isolated chorioid plexus cysts (CPCs) are a normal variant of no clinical importance with no indication for follow-up ultrasound imaging or evaluation in the setting of low risk cell free DNA screening. 5) Double right renal artery identified. Psychosocial History: Psychosocial assessment: Father of the baby (CHERYL) is . Patient is considering adoption. Family History / Pedigree: A three-generation family history was obtained for the patient, however, not for the father of the baby. History was provided by the patient report unless otherwise noted. Of significance, this is Leandra and CHERYL's first together. Leandra has a healthy 8 year old son and a 5 year old son with sickle cell trait with a different partner. We reviewed that both of her sons are obligate silent carriers for alpha thalassemia (aa/a-). Leandra reports a full sister that carries alpha thalassemia in trans (a-/a-), and has 2 sons, one of which had a speech delay. Her sons are both obligate silent carriers for alpha thalassemia (aa/a-) as well. Her father a history of deep vein thrombosis (DVT). Both of Leandra's parents are also obligate silent carriers for alpha thalassemia (aa/a-). Other maternal family history was noncontributory to the genetics evaluation. CHERYL due to suicide. The patient reports limited knowledge regarding his family structure and their health history. Other paternal family history was noncontributory to the genetics evaluation. Maternal ancestry: Black Paternal ancestry: Black Consanguinity: denied The history was otherwise unremarkable for alpha thalassemia carriers/affected individuals, sickle cell trait/disease, DVT or blood clots, developmental delays or intellectual disability, other defects, neural tube defects, multiple miscarriages, stillborns or deaths, and other known genetic conditions. Pedigree to be scanned and viewable under the media tab. Information Discussed: Genetic Assessment: We discussed that whenever a woman is there is a 3-5% chance of having a child with some type of defect and/or developmental delay. Maternal age, maternal health history and family history can increase this risk. Certain ultrasound markers or anomalies can also increase the risk of an underlying chromosome anomaly or genetic syndrome. There are different modalities to screen and diagnose these problems antenatally. Some parents may choose to know this information to make a decision regarding termination of , prepare themselves for a baby with special needs, or they may opt not to have this information available antenatally. We reviewed Leandra's carrier screening results in detail. Carrier screening is a type of genetic testing often utilized by those that are or desire that identifies individuals who are heterozygous (carry 1 mutation) in an autosomal recessive or X-linked condition. Carriers are typically asymptomatic and family history is not a good indicator of carrier status. UNITY carrier screen in particular is a screening test that uses cell-free DNA (cfDNA, maternal and placental DNA in circulation) and single gene non-invasive screening (sgNIPT) to screen for common autosomal recessive conditions. If the mother of the baby is a carrier for any of the genetic conditions, testing will reflex to provide risk assessment related to the condition. This testing is nondiagnostic and should be interpreted with caution. Sufficient placental DNA is needed to provide risk assessment. Leandra's results indicate she is a carrier for alpha thalassemia (a-/a-) with increased risk to the fetus and screened negative for the remaining conditions. The natural history of alpha thalassemia was reviewed. Alpha thalassemia is an autosomal recessive inherited blood disorder that affects hemoglobin. Hemoglobin is made up of alpha and beta globin chains. Alpha thalassemia is due to mutations involving the alpha globin genes HBA1 and HBA2. Individuals who are not carriers for alpha thalassemia have four functional alpha globin genes. Individuals who are silent alpha thalassemia carriers have three functional alpha globin genes, and one alpha globin gene that does not function properly. They typically do not have any symptoms or abnormalities on a complete blood count. Individuals can also be carriers for alpha thalassemia if they have two functional copies of the alpha globin gene and two non-functional copies. These carriers can have mild anemia and microcytic red blood cells on a complete blood count and also typically do not have symptoms (rare exceptions). These carriers can have two non-functional alpha globin genes on the same chromosome (in cis) or on opposite chromosomes (in trans), such as this patient. Alpha thalassemia disease is caused by only one functional copy of alpha globin (hemoglobin H disease - ranges from asymptomatic to symptoms of anemia, jaundice, splenomegaly, bone deformities, fatigue and other complications) to zero functional alpha globin genes (hemoglobin Pal disease - fatal and associated with hydrops fetalis prenatally, defects, and hepatosplenomegaly). If FOB is a carrier of alpha thalassemia in cis, the risk for the to be affected with Hemoglobin H disease is 1 in 2 (50%). Based on Leandra's carrier screening results alone, the risk for the to be affected with Hemoglobin H disease is 1 in 220 (per risk assessment). We reviewed all of her children will at least be obligate silent carries for alpha thalassemia (aa/a-). diagnosis via amniocentesis is available in due to the increased risk of Hemoglobin H disease in the if desired. The patient reports her son with a different partner has sickle cell trait. People with this disorder have atypical hemoglobin molecules called hemoglobin S, which can distort red blood cells into a sickle, or crescent, shape. Characteristic features of this disorder include anemia, repeated infections, and periodic episodes of pain. Carriers typically do not have symptoms, but occasionally have symptoms such as mild anemia. This condition is inherited in an autosomal recessive manner due to mutation in the HBB gene, therefore, each of a couple who have had a child with sickle cell anemia or are both carriers of sickle trait has approximately a 25% chance of producing an affected child. Based on Leandra's negative carrier screening result for sickle cell disease/HBB-related hemoglobinopathies, the risk for the to be affected is low. We reviewed all children born in [place] are screened for alpha thalassemia and sickle cell disease via screening (NBS) after . The process and limitations of screening were reviewed. We additionally reviewed Leandra's non-invasive screening (NIPT) results. This is a screening test that uses cell-free DNA (cfDNA, maternal and placental DNA in circulation) to screen for common aneuploidies. The fraction is calculated based on the cfDNA present in the sample, and sufficient placental DNA is needed to analyze the sample. This testing is nondiagnostic and should be interpreted with caution. Leandra's results indicate the is low risk for all chromosome conditions screened for. The patient reports her father has a personal history of DVT. Deep vein thrombosis (DVT) is usually sporadic and unrelated to an underlying genetic condition. However, there are numerous factors which may predispose a patient to a DVT including hereditary factors, environmental influences, inactivity, blood vessel abnormalities and medications. In addition, there are numerous metabolic and coagulation pathways involved in the complex mechanism of coagulation. Defects in these pathways can lead to increased coagulability (thrombophilia). A thrombophilia panel may be indicated in certain situations. Review of medical records and/or evaluation of the affected family member by a medical assistant or president educational institution may be helpful in defining the condition responsible for a DVT and determining which testing, if any, is indicated. Of note, Leandra had negative thrombophilia workup for factor V leiden, prothrombin, and antithrombin iii. Testing offered today included: Amniocentesis: This diagnostic testing is usually offered as an option for pregnancies after 16 weeks gestation after screening or ultrasound findings indicate an increased risk of aneuploidy, ONTDs, sex chromosome differences, or inheriting a genetic condition. This is invasive testing, meaning a needle guided by ultrasound is inserted into the maternal abdomen and amniotic fluid (the fluid surrounding the fetus), which includes DNA is collected and used for genetic testing. Amniocentesis can also measure the amount of AFP and other substances specific to open neural tube defects in the amniotic fluid.The risk of miscarriage, delivery, and infection is about 1 in 900. When a known variant or variants for a single gene disorder are identified in the family or there is high suspicion for a single gene disorder, diagnostic testing for those variants on the gene level is possible. Plan of Care: 1. Amniocentesis discussed and declined. 2. Continue to monitor the via ultrasound. 3. Patient diagnoses: alpha thalassemia carrier (a-/a-), abnormal genetic test in , family history of sickle cell trait and DVT 4. Online resources: [email or web address] ([email or web address]) TIF ([email or web address]) Total time spent was 78 minutes on date of encounter. I provided genetic counseling services, including obtaining a structured family history, analysis of genetic and other risks, counseling of the patient, review of medical information, review of previous test results and discussion of genetic testing options. I discussed the benefits and limitations of genetic testing. I discussed the limitations of insurance coverage. If prior authorization is needed this may extend the turnaround time. The family was provided the opportunity to ask questions and all questions were answered. The family was encouraged to call or email their genetic counselor at [phone] or [email or web address] if any additional questions or concerns should arise. HARPAL Kunz Licensed, Certified Genetic Counselor documented in this encounter [facility] 12-09-2024 Miscellaneous Notes Formattin g of this note might be different from the original. Attempted to contact patient to schedule Genetic counseling appointment. No answer. LVM requesting patient return call to schedule. documented in this encounter [facility] 12-09-2024 Telephone encount er Note Attempted to contact patient to schedule Genetic counseling appointment. No answer. LVM requesting patient return call to schedule. [facility] 12-08-2024 Miscellaneous Notes Formattin g of this note might be different from the original. I talked to pt and gave her the times and dates of the new apts Priscilla F made for her. She said they where all fine, thank you documented in this encounter [facility] 12-08-2024 Telephone encount er Note I talked to pt and gave her the times and dates of the new apts Priscilla F made for her. She said they where all fine, thank you [facility] 12-08-2024 History of Presen t illness Narrative [facility] staff note 1. Alpha-thalassemia carrier (a-/a-) with mild anemia. Father of the baby testing unavailable. Unfortunately the father of the baby has . carrier screening high risk for alpha-thalassemia anemia and therefore patient will require every 14 days MCA Doppler studies until 37 weeks gestation. HENNY MONTGOMERY MD documented in this encounter [facility] 11-21-2024 History of Presen t illness Narrative Headache/epigastric pain/blurry vision/swelling? Blurry vision, primary OB is aware Cramping/contractions? No Abnormal vaginal discharge? No Spotting/vaginal bleeding? No Loss or gush of fluid like your water may have broken? No Do you have cats at home? No Do you change the litter box (reason: risk of toxoplasmosis)? N/A Genetic testing done this here or other office? No Have you been seen here at [facility] in a previous ? Yes, with G2 Recent ER visits or hospitalizations? No Bring blood sugar log or meter with you today? (Please bring them with you for every visit at [facility]) N/A Flu vaccine (Jul-November)? No Any concerns that you would like me to mention to the provider today? No REASON FOR CONSULTATION: Thalassemia carrier (a-/a-) HISTORY OF PRESENT ILLNESS: Leandra Fonseca is a pleasant 34 y.o. G 3p1 101. at 20w5d due on Estimated Date of Delivery: 04/05/25 . Patient was seen today due to the following 1. Alpha-thalassemia carrier (a-/a-) with mild anemia. Father of the baby testing unavailable. Unfortunately the father of the baby has 2. Choroid plexus cyst. Patient has opted out of genetic screening. 3. History of 2 prior . Patient is scheduled for repeat . 4. History of severe preeclampsia leading to medically indicated delivery. Patient is on low-dose aspirin therapy. Currently the patient has no complaints. The patient denies nausea, vomiting, abdominal pain, vaginal bleeding, SOB or chest pain. Patient's PMH/PSH,SH,PSYCH Hx, MEDs, ALLERGIES, and ROS were all reviewed and updated in the appropriate sections. Patient Active Problem List Diagnosis History of pre-eclampsia in prior , currently in first trimester Previous delivery affecting , antepartum History of anemia Choroid plexus cyst of fetus affecting care of mother, antepartum, fetus 1 Past Medical History: Diagnosis Date Acid reflux Alpha thalassemia silent carrier Anemia Endometriosis Fibroid, uterine H/O pre-eclampsia in prior , currently , unspecified trimester H/O delivery, currently History of hyperthyroidism Hypertension Hypothyroidism Irregular menses Menometrorrhagia Overweight (BMI 25.0-29.9) Syncope 06/2016 Varicella PAST OBSTETRICAL HISTORY: OB History 3 Para 2 Term 1 1 AB 0 Living 1 SAB 0 IAB 0 Ectopic 0 Multiple 0 Live Births 1 SURGICAL HISTORY: Past Surgical History: Procedure Laterality Date SECTION 2015 TUMOR REMOVAL per patient, emdometrial tumor removed ALLERGIES: Allergies Allergen Reactions Cefdinir Labetalol Labetalol Hcl Methimazole CURRENT MEDICATIONS: Current Outpatient Medications: magnesium oxide (MAGOX) 400 mg tablet, Take 1 tablet (400 mg total) by mouth in the morning., Disp: , Rfl: metoclopramide (REGLAN) 10 mg tablet, Take 1 tablet (10 mg total) by mouth in the morning and 1 tablet (10 mg total) at noon and 1 tablet (10 mg total) in the evening and 1 tablet (10 mg total) before bedtime., Disp: , Rfl: ondansetron (ZOFRAN) 8 mg tablet, Take by mouth every 8 (eight) hours as needed for nausea or vomiting., Disp: , Rfl: 25/iron fum/folic/dha (-1 ORAL), Take 1 tablet by mouth daily., Disp: , Rfl: aspirin 81 mg, Take 81 mg by mouth daily. (Patient not taking: Reported on 11/21/2024), Disp: , Rfl: ferrous sulfate 325 (65 FE) mg tablet, Take 325 mg by mouth daily with breakfast. (Patient not taking: Reported on 11/21/2024), Disp: , Rfl: labetalol (NORMODYNE) 100 mg tablet, Take 100 mg by mouth 2 (two) times a day. (Patient not taking: Reported on 11/21/2024), Disp: , Rfl: FAMILY/GENETIC HISTORY: No family history of VTE, cardiac defects and mental retardation . SOCIAL HISTORY:Patient denies tobacco use, alcohol use, or drug use. RECENT HOSPITALIZATION: none I did review all the labs results available in addition to labs which were ordered by the primary care physician, and the other consultants, we search on [employer] and all the available care everywhere epic I did review all the imaging studies of the patient available on EMR, ordered by the primary care physician and the other architecture consultant HABITS: Patient activity no restrictions, diet no restrictions REVIEW OF SYSTEM: Head and Neck: Negative for any dizziness and headaches. Cardiovascular and Respiratory System: Denies any chest pain, shortness of breath, and coughing. Abdominal and System: Denies any abdominal pain, nausea, vomiting, vaginal bleeding, and vaginal discharge Social Determinants of Health Financial Resource Strain: n Food Insecurity: n Transportation Needs: n Physical Activity: y Social Connections: y Intimate Partner Violence: n Housing Stability: y PHYSICAL EXAMINATION: BP 113/69 (BP Site: Left Arm, BP Postition: Lying) Pulse 87 Ht 160 cm (5' 2.99 ) Wt 83.6 kg (184 lb 3.2 oz) LMP 06/23/2024 BMI 32.64 kg/m . Gravid abdomen, Respirations not labored. Well oriented time place person, normal gait MEDICAL DECISION MAKING DISCUSSION: We started our discussion that choroid plexus cysts are well demarcated and echoic fluid filled structures within the choroid plexus of the lateral ventricle of the brain. CPCs are often called soft markers for aneuploidy most commonly for Trisomy 18 because some studies have found an association between them. However, in the presence of normal quadruple screen or cell-free DNA and normal anatomy, CPCs are considered a normal variant. The incidence of choroid plexus cysts ranges from 0.18 to 3% on a scan in the second trimester. I informed the patient that these cysts are usually resolve by 32 weeks regardless of the chromosomal status. Genetic screenign testts such as cell free DNA are excellent screenign tool with amniocentesis reserved as a diagnostic test. Patient opted for cell free DNA testing. In the absence of any other anatomical marker for trisomy 18 such as clenched hands, rocker bottom foot, severe cardiac, or brain anomalies, the patient should be labeled as low risk and should be continued without any further surveillance. Should the patient show increased level of anxiety despite having normal target ultrasound and genetic test s such as cell-free DNA , amniocentesis can also be offered to the patient. In case the cell free DNA testing does come back as high risk for trisomy the patient needs to be sent to our unit for reconsultation along with genetic counseling. At that point, we may offer the patient amniocentesis. RECOMMENDATION: 1. Patient underwent cell free DNA testing today. 2. Carrier screening for alpha-thalassemia on the fetus done through [facility] cell free DNA testing 3. Patient is increased risk For anemia which most likely is not iron deficiency anemia. 4. Patient was started on folic acid today. 5. InCase of anemia with normal iron studies, patient will only benefit from blood transfusions as the patient has alpha-thalassemia carrier 6. Patient increased risk for blood loss anemia after surgery from . 7. Follow-up in 4 weeks for completion of targeted anatomy and again repeat growth ultrasound and MCA Dopplers at 30 weeks gestation at [facility] office at our [facility] site. DISPOSITION: At this point the patient is in complete care of her full time paramedic. Patient does have ultrasound scheduled with us. Thank you for allowing me to participate in Leandra Fonseca . If there any questions please do not hesitate to contact us. Sincerely, HENNY MONTGOMERY MD documented in this encounter [facility] [employer] 11-18-2024 History of Presen t illness Narrative Images from the original note were not included. Follow up Diagnosis: Acne Location: face Last visit: 04/2023 Symptoms: flared on the face today since being out of medications Status: stable with medication Treatments tried and failed: Differin gel Current treatment: Clindamycin gel mixed with BPO gel; Tretinoin 0.025% cream (need refills) Follow up Diagnosis: Atopic Dermatitis Location: right lower leg Last visit: 02/2023 Symptoms: flares from time to time Status: stable with treatment Current treatment: TAC 0.1% cream (needs refills) All pertinent medical history, medications, and allergies were reviewed. General Exam: alert, oriented to person, place, and time, normal affect, well appearing A focused exam completed based on patient reported problems, see below: 1. Acne vulgaris Head - Anterior (Face) Improved acneiform eruption on the face. Continue use of Clindamycin/BPO in the morning and discontinue Tretinoin before bed due to current . Appropriate use of medication discussed, she voiced understanding. Plan to follow up in one year. clindamycin (Clindagel) 1 % gel - Head - Anterior (Face) Apply thin layer to face, once daily in the morning, 30 day supply benzoyl peroxide 5 % gel - Head - Anterior (Face) Apply to face once a day, in the morning, 30 day supply 2. Other atopic dermatitis Right Lower Leg - Posterior Mild PIH present, otherwise clear today Continue gentle cleanser and TAC 0.1% cream bid when flared, hold when clear. triamcinolone (Kenalog) 0.1 % cream - Right Lower Leg - Posterior Apply to affected areas, up to twice a day when flared, do not use one the face, groin, or underarms, 30 day supply Next Visit: 1 year documented in this encounter [facility] 11-04-2024 History of Presen t illness Narrative Reason for Appointment: Patient ID: Leandra Fonseca is a 34 y.o. female who presents for Routine Visit Patient presents today for colposcopy and Return OB appointment. MEDICATIONS No current outpatient medications ALLERGIES Allergies Allergen Reactions Labetalol Other, Shortness [...] Medical History: Diagnosis Date Acid reflux 02/2017 [facility] Alpha thalassemia silent carrier Anemia Endometriosis Fibroid, uterine History of anemia History of hyperthyroidism Hypothyroidism (CMS/HCC) Irregular menses Menometrorrhagia Overweight (BMI 25.0-29.9) Syncope 06/2016 [facility] Varicella zoster Social History Tobacco Use [...] Constitutional: Appearance: Normal appearance. She is well-developed. Genitourinary: Vulva normal. Cardiovascular: Rate and Rhythm: Normal rate and [...] nursing note reviewed. Exam conducted with a department chairperson present. Vitals: Estimated body mass index is 31.71 kg/m as calculated from the following: Height as of 02/19/24: 5' 3 . Weight as of this encounter: 179 lb. BP: 120/70 Patient's last menstrual period was 06/23/2024. ASSESSMENT & PLAN ICD-10-CM 1. 18 weeks gestation of Z3A.18 POCT urinalysis dipstick manually resulted 2. LGSIL of cervix of undetermined significance R87.612 Colposcopy: Patient is doing well and has no complaints. Pap results have been reviewed with the patient in great detail and patient voiced understanding. Patient presents today for a Colposcopy. Patient was placed in dorsal lithotomy position with feet in stirrups, a sterile speculum was placed into the vagina and the cervix was visualized. Cervix was cleansed with vinegar. Postprocedural instructions given. All if patients questions answered and she expressed understanding. Advised to call in interim with questions or concerns. Pt to have repeat pap after at 12 weeks. Pt going through some things- rx for effexor faxed to pharmacy. Pt having headaches rx for effexor faxed to pharmacy. Pt to start baby aspirin. Pt to return in 4 weeks for scheduled OB appt. Follow Up: Patient is to return in 6 months for Repeat Pap. Documented by Michell Patten LPN on behalf of: Malcolm Pendleton DO documented in this encounter [facility] 10-14-2024 History of Presen t illness Narrative Reason for Appointment: Patient ID: Leandra Fonseca is a 34 y.o. female who presents for Routine Visit Patient presents today for Return OB appointment. MEDICATIONS Current Outpatient Medications Medication Instructions iron polysaccharides (PROFE) 391.3 mg, Oral, Daily magnesium oxide (MAG-OX) 400 mg, Oral, Daily metoclopramide (REGLAN) 10 mg, Oral, 3 times daily before meals, Take 1 tablet by mouth 30 minutes prior to meals 3 times daily as needed for nausea. ondansetron ODT (ZOFRAN-ODT) 4 mg, Every 8 hours PRN promethazine (PHENERGAN) 12.5 mg, Oral, Every 6 hours PRN, Take 1 tablet by mouth every 6 hours as needed for nausea. ALLERGIES Allergies Allergen Reactions Labetalol Other, Shortness [...] Medical History: Diagnosis Date Acid reflux 02/2017 [facility] Alpha thalassemia silent carrier Anemia Endometriosis Fibroid, uterine History of anemia History of hyperthyroidism Hypothyroidism (CMS/HCC) Irregular menses Menometrorrhagia Overweight (BMI 25.0-29.9) Syncope 06/2016 [facility] Varicella zoster Social History Tobacco Use [...] Exam Constitutional: Appearance: Normal appearance. She is normal weight. HENT: Head: Normocephalic. Cardiovascular: Rate and Rhythm: Normal rate. Pulses: Normal pulses. Pulmonary: Effort: Pulmonary effort is normal. Breath sounds: Normal breath sounds. Abdominal: Palpations: Abdomen is soft. Musculoskeletal: General: Normal range of motion. Neurological: General: No focal deficit present. Mental Status: She is alert and oriented to person, place, and time. Psychiatric: Mood and Affect: Mood normal. Behavior: Behavior normal. Thought Content: Thought content normal. Judgment: Judgment normal. Vitals and nursing note reviewed. Vitals: Estimated body mass index is 30.08 kg/m as calculated from the following: Height as of 02/19/24: 5' 3 . Weight as of this encounter: 169 lb 12.8 oz. BP: 124/66 Patient's last menstrual period was 06/23/2024. ASSESSMENT & PLAN ICD-10-CM 1. 15 weeks gestation of Z3A.15 POCT urinalysis dipstick manually resulted 2. Second trimester Z34.92 3. Well woman exam with routine gynecological exam Z01.419 Pap Smear HPV DNA probe, amplified 4. Screening, , for anatomic survey Z36.89 US OB 14+ weeks anatomy scan Alpha fetoprotein, maternal Alpha fetoprotein, maternal 5. STD exposure Z20.2 SURESWAB(R) ADVANCED VAGINITIS PLUS, TMA CHLAMYDIA TRACHOMATIS (GENITO/STI) Neisseria gonorrhea DNA probe, direct 6. Vaginal discharge N89.8 SURESWAB(R) ADVANCED VAGINITIS PLUS, TMA CHLAMYDIA TRACHOMATIS (GENITO/STI) Neisseria gonorrhea DNA probe, direct Return OB/Annual Exam: Patient presents today for a annual exam/routine obstetrics appointment. Patient is currently 15w2d . Patient states she is doing well but has complaints of nausea in the morning. Pap and cultures was obtained without difficulty and patient was given orders for anatomy scan and msAFP to be obtained. Orders Placed This Encounter Procedures HPV DNA probe, amplified US OB 14+ weeks anatomy scan CHLAMYDIA TRACHOMATIS (GENITO/STI) Neisseria gonorrhea DNA probe, direct Alpha fetoprotein, maternal POCT urinalysis dipstick manually resulted Follow Up: Patient is to schedule annual exam for next year and return to office in 4 weeks for OB appointment. Documented by CAROLA Patton on behalf of: CAROLA Patton documented in this encounter [facility] 09-11-2024 History of Presen t illness Narrative [...] Medical History: Diagnosis Date Acid reflux 02/2017 [facility] Alpha thalassemia silent carrier Anemia Endometriosis Fibroid, uterine History of anemia History of hyperthyroidism Hypothyroidism (CMS/HCC) Irregular menses Menometrorrhagia Overweight (BMI 25.0-29.9) Syncope 06/2016 [facility] Varicella zoster Social History Tobacco Use [...] nursing note reviewed. Exam conducted with a department chairperson present. Vitals: Estimated body mass index is 28.77 kg/m as calculated from the following: Height as of 24: 5' 3 . Weight as of this [...] or undercooked meat, and stay away from [facility]. Patient has been consulted regarding any [...] Malcolm Pendleton DO documented in this encounter [facility] 08-26-2024 History of Presen t illness Narrative [...] or undercooked meat, and stay away from [facility]. Patient has also been advised to [...] Suze Lopez LPN documented in this encounter [facility] 07-14-2024 Evaluation note Diagnosis Onset Date Resolution Abdominal pain acute July 142023 11:39am [facility] Work Phone: 1(687) 869-919710-18-2023 Progress note Author Kelly Hough [facility] July 03, 2023 10:09pm Note Date/Time June 27, 2023 1 0:36am [facility] at [address] [address] Hem/Onc Follow Up Note - OP Signed Patient: Leandra Fonseca MR#: [id number] : 1990 Acct:[id number] Age/Sex: 33 / F Type: REG RCR Copies to: Yudelka Paulino BETTY Lopez, TELEVISION SCRIPT WRITER-C~ Date of Service: 06/27/2023 Time of Service: [...] She believes she had this done at [facility] in [place] in 2019. We will request these records, and if they are not available, will plan repeat testing including hemoglobin electrophoresis. In themeantime check b12, folate, copper, epo, reticulocytes, haptoglobin, LDH, and christiano testing. B12 deficiency Will initiate weekly B12 injections x 4, then switch to monthly Follow Up Instructions: b12 weekly x 4 then monthly get [facility] records from 2019- hgb electrophoresis, thalassemia [...] cravings denies new complaints. Her periods are lead former now on control. Her heavy days she [...] for coordination of care (as documented) and [id number] counseling of patient and/or family. [facility] - Medical History Medical History: Medical History (Last Reviewed 02/06/23 @ 09:40 by Marguerite Peraza RN) Anemia Asthma Endometriosis Hypertension affecting Pre-eclampsia - Surgical History Surgical History: Surgical History (Last Reviewed 02/06/23 @ 09:40 by Marguertie Peraza RN) History of section - Family [...] By: <Electronically signed by BETTY Hough> 07/03/23 4519 [facility] Work Phone: 1(670) 169-643609-18-2023 Evaluation note* Encounter Date Diagnosis Assessment Notes Treatment Notes Treatment Clinical Notes May, Rash and nonspecific skin eruption (ICD-10 - R21) 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 Given return precautions. [employer] Other 07-18-2023 Progress note Author Kelly Hough [facility] April 03, 2023 9:16am Note Date/Time March 21, 2023 3:35p [facility] [place] [address] Hem/Onc Follow Up Note - OP Signed Patient: Leandra Fonseca MR#: [id number] : 1990 Acct:[id number] Age/Sex: 32 / F Type: REG RCR Copies to: Yudelka Lopez APRN, JEFFERSON-C~ Subjective Date/Time of Service: Date of Service: [...] cravings denies new complaints. Her periods are lead former now on control. Her heavy days she [...] after visit and call with concerning results [facility] - Medical History Medical History: Medical [...] 25 mg rectal suppository (Anusol-HC) 25 mg MO DAILY 2 weeks #12 ea 02/06/23 [Rx [...] for coordination of care (as documented) and [id number] counseling of patient and/or family. Dictated By: Kelly Hough APRN DD/ 1535 Signed By: <Electronically signed by BETTY Hough> 04/03/23 0916 [facility] Work Phone: 1(253) 649-456404-19-2023 Progress note Author Kelly Hough [facility] January 03, 2023 2:03pm Note Date/Time January 02, 2023 10: 47am [facility] [place] [address] Hem/Onc Follow Up Note - OP Signed Patient: Leandra Fonseca MR#: [id number] : 1990 Acct:[id number] Age/Sex: 32 / F Type: REG RCR Copies to: Yudelka Lopez APRN, TELEVISION SCRIPT WRITER-C~ Subjective Date/Time of Service: Date of Service: [...] cravings denies new complaints. Her periods are lead former now on control. Her heavy days she will only go thru maybe 2 pads/day. labs with hgb 11, iron sat 46.5% and ferritin 58.3 [facility] - Medical History Medical History: Medical [...] for coordination of care (as documented) and [id number] counseling of patient and/or family. Dictated By: Kelly Hough APRN DD/ 1046 Signed By: <Electronically signed by BETTY Hough> 01/03/23 1403 [facility] Work Phone: [phone]) [phone] Evaluation note* Encounter Date Diagnosis Assessment Notes Treatment Notes Treatment Clinical Notes Dec, Abdominal pain (ICD-10 - R10.9) Dec, Bloating (ICD-10 - R14.0) Dec, Nausea (ICD-10 - R11.0) [employer] Other 04-06-2023 Evaluation note* Encounter Date Diagnosis [...] from [facility] in 2019 for EGD/Colonoscopy [employer] Other 01-17-2023 Consult note Author Kelly Hough [facility] October 03, 2022 1:04pm Note Date/Time October 03, 2022 1 1:23am [facility] [place] [address] Hem/Onc Consult Note - OP Signed with Gena Patient: Leandra Fonseca MR#: [id number] : 1990 Acct:[id number] Age/Sex: 32 / F Type: REG RCR [...] going to the ER with worsening symptoms. [facility] - Medical History Medical History: Medical [...] for coordination of care (as documented) and [id number] counseling of patient and/or family. Dictated By: Kelly Hough APRN DD/ 1123 Signed By: <Electronically signed by BETTY Hough> 10/03/22 125 [facility] Work Phone: 1([phone]) 467-511907-18-2022 NotePROCEDURE DETAILS Preoperative Diagnosis: Left abdominal wall endometrioma Postoperative Diagnosis: Same Surgeon: Sly Crocker Resident/Fellow/Other Insulation Hoseman: Ariel Thompson Procedure: 1. LEFT ABDOMINAL WALL TUMOR RESECTION 8X5.5X4CM 2. MESH RECONSTRUCTION ANTERIOR RECTUS FASCIA 7X5CM DEFECT (Bard Soft Mesh) 3. COMPLEX CLOSURE OF A 8CM WOUND Anesthesia: Alan Pardo Estimated Blood Loss: 10ml Findings: 8X5.5X4CM SOFT TISSUE MASS WITH EN BLOC FASCIA AND OVERLYING SKIN PADDLE Specimens(s) Collected: yes, Left anterior wall soft tissue mass -short [id number], long lateral 300 Complications: None Drains and/or [...] of the procedure. Note Recipients: Yudelka Lopez APRN-[employer] ADMINISTRATOR MALCOLM PENDLETON R - [id number] [] Attestation: Note Completion: Attending AttestationI was present for the entire procedure Electronic Signatures: Sly Crocker) (Signed 03-Apr-2022 17:55) Authored: Post-Operative Note, Chart Review, Note Completion Last Updated: 03-Apr-2022 17:55 by Sly Crocker)[facility]07-18-2022 NoteHistory & Physical Reviewed: /Lactating: Are You [...] saravia risks related to the risk of rkiss COVID-19 and if they contract COVID-19 what [...] the note. I personally evaluated the patient [id number] Electronic Signatures: Miguel Crawford (Resident)) (Signed 03-Apr-2022 12:08) Authored: History & Physical Reviewed, ERAS, Consent, Note Completion Sly Crocker) (Signed 03-Apr-2022 14:42) Authored: Note Completion Co-Signer: History & Physical Reviewed, ERAS, Consent, Note Completion Last Updated: 03-Apr-2022 14:42 by Sly Crocker)[facility] No data available for this section [facility] [place] Evaluation noteNo assessment information available [facility] Work Phone: Evaluation note* Diagnosis Onset Date Resolution Status Iron deficiency anemia due to chronic blood loss acute [facility] Work Phone: Evaluation note* Diagnosis Onset Date Resolution Status Abdominal pain acute [facility] Work Phone: Evaluation note* Diagnosis Missed menses , unspecified gestational age Encounter for supervision of normal first in first trimester Nausea and vomiting in Unspecified vomiting of , unspecified as to episode of care documented in this encounter [facility] Healthcare[facility]* Diagnosis 10 weeks gestation of First trimester state, incidental Other headache syndrome Nausea and vomiting during Thyroid disease affecting (CMS/HCC) documented in this encounter [facility]* Diagnosis 15 weeks gestation of Second trimester state, incidental Well woman exam with routine gynecological exam Routine gynecological examination Screening, , for anatomic survey Encounter for anatomic survey STD exposure Vaginal discharge Leukorrhea, not specified as infective documented [facility] this encounter [facility]* Diagnosis 18 weeks gestation of LGSIL of cervix of undetermined significance Other headache syndrome Mood disorder (CMS/HCC) Unspecified episodic mood disorder documented [facility] this encounter [facility]* Diagnosis Onset Date Resolution Status Admit Date Iron deficiency anemia due t o chronic blood loss acute October 3:16pm [facility] Work Phone: Evaluation note* Diagnosis Acne vulgaris- Primary Other acne Other atopic dermatitis documented in this encounter [facility] HealthcareEvaluation note* Diagnosis Previous delivery affecting , antepartum- Primary Previous delivery, antepartum condition or complication History of pre-eclampsia in prior , currently in first trimester History of anemia Personal history of diseases of blood and blood-forming organs Choroid plexus cyst of fetus affecting care of mother, antepartum, fetus 1 documented in this encounter [facility]* Diagnosis History of anemia- Primary Personal history of diseases of blood and blood-forming organs documented in this [facility] Diagnosis Thalassemia alpha carrier- Primary documented in this encounter [facility]* Diagnosis Thalassemia alpha carrier- Primary Abnormal genetic test during Family history of sickle cell trait Family history of DVT documented in this encounter [facility] SystemHistory general Narrative - Reported* Type Description Date Medical History concussion Medical History IBS-C Surgical History C SECTION Hospitalization History see above [employer] Other History of Present illness Narrative* Ms. [...] sensorimotor deficits * Extremities: No leg swelling [facility]: History of Present illness Narrative* [...] to the telephone nature of this visit. [facility] Phone: Hospital Discharge instructions Additional Instructions If your symptoms return/worsen or you develop any further concerns or symptoms please see your doctor or return to the emergency department immediately.[facility] Work Phone: Hospital Discharge instructions Additional Instructions Follow-up with your primary care doctor Return to ED if you develop worsening symptoms or concerns[facility] Work Phone: Hospital Discharge instructions Additional Instructions Return for worsening symptoms [facility] Hospital Discharge instructions No data available for this section [facility] Discharge instructions Additional Instructions We evaluated you for your symptoms. Your workup here was unremarkable. Please use the nausea medicine as prescribed. Please follow closely with your primary doctor. Please return to the emergency department if you develop any worsening or concerning symptoms. [facility] Work Phone: InstructionsNot on filedocumented in this encounter [facility] filedocumented in this encounter [facility]Not on filedocumented in this encounter [facility]Not on filedocumented in this encounter [facility]ructionsNot on filedocumented in this encounter [facility] No data available for this section [facility] Summary Purpose Family History No Family History [...] Abdominal pain July 14, 2024 1 1:39am Chief Complaint Admit Date Unknown September 11, 2024 11:32am f/u, labs November 10, 2024 2:45pm Iron Deficiency Anemia November 10 3:16pm Reason for Visit Admit Date Iron deficiency anemia due to chronic bl ood loss November 10, 2024 3:16pm Additional Source Comments INFORMATION SOURCE (unrecogn ized section and content) DATE CREATED AUTHOR 04/07/2022 [facility] DATE CREATED AUTHOR AUTHOR'S ORGANIZ ATION 04/23/2022 [employer] DATE CREATED AUTHOR AUTHOR'S ORGANIZ ATION 04/28/2022 [facility] DATE CREATED AUTHOR AUTHOR'S ORGANIZ ATION 05/16/2022 [facility] DATE CREATED AUTHOR AUTHOR'S ORGANIZ ATION 12/21/2022 [facility] DATE CREATED AUTHOR AUTHOR'S ORGANIZ ATION 12/11/2023 Alva Micha [facility] DATE CREATED AUTHOR AUTHOR'S ORGANIZ ATION 11/12/2024 [facility] DATE CREATED AUTHOR AUTHOR'S ORGANIZ ATION 12/04/2024 [facility] DATE CREATED AUTHOR AUTHOR'S ORGANIZ ATION 12/13/2024 [facility] DATE CREATED AUTHOR AUTHOR'S ORGANIZ ATION 12/17/[address] [facility] Care Teams (unrecognized sec tion and content) Team Status: Active Member Role Status Dates Yudelka Lopez APRN TELEVISION SCRIPT WRITER-C Primary Care Provider Act klever Team Status: Inactive Member Role Status Dates Yudelka Lopez APRN TELEVISION SCRIPT WRITER-C Primary Care Provider Act klever Start: July 14, 2024 End: July 14, 2024 Larry Underwood PA-C Attending Provider Active St art: July 14, 2024 End: July 14, 2024 Team Status: Active Member Role Status Dates Yudelka Lopez APRN TELEVISION SCRIPT WRITER-C Primary Care Provider, Re bharating Provider Active Kelly Hough APRN Attending Provider Acti pete Team Status: Inactive Member Role Status Dates Yudelka Lopez APRN TELEVISION SCRIPT WRITER-C Primary Care Provider Act klever Dayne Horton MD Attending Provider Active Team Status: Inactive Member Role Status Dates Yudelka Lopez APRN TELEVISION SCRIPT WRITER-C Primary Care Provider Act klever Allegra Vega PA-C Emergency Provider Active Team Status: Active Member Role Status Dates Yudelka Lora Lopez , POTATO LOADER TELEVISION SCRIPT WRITER-C Primary Care Provider, At tending Provider Active Team Status: Inactive Member Role Status Dates Yudelka Lora Lopez , POTATO LOADER TELEVISION SCRIPT WRITER-C Primary Care Provider Act kleveralbino Shanks MD Attending Provider Active Dayne Horton MD Referring Provider Active Team Status: Inactive Member Role Status Dates Yudelka Lopez , POTATO LOADER TELEVISION SCRIPT WRITER-C Primary Care Provider, At tending Provider Active Team Status: Inactive Member Role Status Dates Yudelka Lopez , POTATO LOADER TELEVISION SCRIPT WRITER-C Primary Care Provider Act klever Frank Silva , DO Emergency Provider Active Team Status: Inactive Member Role Status Dates Yudelka Griffine John , POTATO LOADER TELEVISION SCRIPT WRITER-C Primary Care Provider Act klever Sly Crocker MD Attending Provider Active Team Status: Inactive Member Role Status Dates Yudelka Griffine John , POTATO LOADER TELEVISION SCRIPT WRITER-C Primary Care Provider Act klever Jim Vega , DO Emergency Provider Active Team Status: Inactive Member Role Status Dates Yudelka Griffine John , POTATO LOADER TELEVISION SCRIPT WRITER-C Primary Care Provider Act klever Chris Greenwood , DO Emergency Provider Active Team Status: Inactive Member Role Status Dates Yudelka Griffine Lopez , POTATO LOADER TELEVISION SCRIPT WRITER-C Primary Care Provider Act klever Marvin Serrano Jr, MD Emergency Provider Active Team Status: Inactive Member Role Status Dates Yudelka Griffine John , POTATO LOADER TELEVISION SCRIPT WRITER-C Primary Care Provider Act klever Frank Silva , DO Emergency Provider Active Vicky Fuentes DO RES Active Team Status: Inactive Member Role Status Dates Yudelka Lopez , POTATO LOADER TELEVISION SCRIPT WRITER-C Primary Care Provider Act klever Tejinder Peraza , TELEVISION SCRIPT WRITER-C Attending Provider Active Team Status: Inactive Member Role Status Dates Jim Vega , DO Emergency Provider Active Yudelka Lopez , POTATO LOADER TELEVISION SCRIPT WRITER-C Primary Care Provider Act klever Team Status: Inactive Member Role Status Dates Yudelka Griffine Lopez , POTATO LOADER TELEVISION SCRIPT WRITER-C Primary Care Provider Act kleveralbino Shanks MD Attending Provider Active Team Status: Inactive Member Role Status Dates Yudelka Griffinalbino Lopez , POTATO LOADER TELEVISION SCRIPT WRITER-C Attending Provider Active Team Status: Inactive Member Role Status Dates Yudelka Lopez , POTATO LOADER TELEVISION SCRIPT WRITER-C Primary Care Provider Act klever Start: July 14, 2024 End: July 14, 2024 Sarah Dodd , Emergency Provider Active Start: July 14, 2024 End: July 14, 2024 Lety Dougherty DO RES Active Sta rt: July 14, 2024 End: July 14, 2024 Team Status: Active Member Role Status Dates Yudelka Paulino BETTY Lopez TELEVISION SCRIPT WRITER-C Primary Care Provider Act klever Start: August 06, 2024 Marvin Serrano Jr, MD Emergency Provider Active Start: August 06, 2024 Julián Naqvi MD Admit Provide r, Attending Provider Active Start: August 06, 2024 Assistant Technician Relationship Specialty Start Date End Date Yudelka LopezndraDO [address] [place] [id number] Referring Physician Emergency Medicine 02/18/23 Assistant Technician Relationship Specialty Start Date End Date Sarah Lopez DO [address] [place] [address] [phone] Referring Physician Emergency Medicine 02/18/23 Assistant Technician Relationship Specialty Start Date End Date Sarah Lopez DO [address] [place] [address] [phone] Referring Physician Emergency Medicine 02/18/23 Assistant Technician Relationship Specialty Start Date End Date Sarah Lopez DO [address] [place] [address] [phone] Referring Physician Emergency Medicine 02/18/23 Assistant Technician Relationship Specialty Start Date End Date Sarah Lopez DO [address] [place] [address] [phone] Referring Physician Emergency Medicine 02/18/23 Assistant Technician Relationship Specialty Start Date End Date Sarah Lopez DO [address] [place] [address] [phone] Referring Physician Emergency Medicine 02/18/23 Assistant Technician Relationship Specialty Start Date End Date Sarah Lopez DO [address] [place] [address] [phone] Referring Physician Emergency Medicine 02/18/23 Assistant Technician Relationship Specialty Start Date End Date Sarah Lopez DO [facility] [place], [place] [phone] Referring Physician Emergency Medicine 02/18/23 Assistant Technician Relationship Specialty Start Date End Date Sarah Lopez DO [address] [place] [address] [phone] Referring Physician Emergency Medicine 02/18/23 Assistant Technician Relationship Specialty Start Date End Date Sarah Lopez DO [address] [place] [address] [phone] Referring Physician Emergency Medicine 02/18/23 Team Status: Inactive Member Role Status Dates Malcolm Pendleton DO Attending Provider Active Start : September 11, 2024 End: September 11, 2024 Team Status: Inactive Member Role Status Dates Ingrid Esquivel APRN Attending Provider Active Start: November 10, 2024 End: November 10, 2024 Yudelka Lopez APRN TELEVISION SCRIPT WRITER-C Primary Care Provider Act klever Start: November 10, 2024 End: November 10, 2024 Team Status: Active Member Role Status Dates Yudelka Lopez APRN TELEVISION SCRIPT WRITER-C Referring Provider Active Start: November 10, 2024 Kelly Hough APRN Attending Provider Active Start: October Alfie Matthews MD Primary Care Provider Active S tart: November 10, 2024 Assistant Technician Relationship Specialty Start Date End Date Sarah Lopez DO [address] [place] [address] [phone] Referring Physician Emergency Medicine 02/18/23 Assistant Technician Relationship Specialty Start Date End Date No Pcp, [place] [address] PCP - General Family Medicine 02/21/24 Assistant Technician Relationship Specialty Start Date End Date No Pcp, [place] [address] PCP - General Family Medicine 02/21/24 Assistant Technician Relationship Specialty Start Date End Date No Pcp, [place] [address] PCP - General Family Medicine 02/21/24 Assistant Technician Relationship Specialty Start Date End Date No Pcp, [place] [address] PCP - General Family Medicine 02/21/24 Assistant Technician Relationship Specialty Start Date End Date No Pcp, [place] [address] PCP - General Family Medicine 02/21/24 Goals (unrecognized section and content) Goals may [...] sectionGoals may be documented in an alternate sectionNot on filedocumented as of this encounterNot on filedocumented as of this encounterNot on filedocumented as of this encounterNot on filedocumented as of this encounterNot on filedocumented as of this encounterNot on filedocumented as of this encounterNot on filedocumented as of this encounter REASON FOR VISIT (unrecogniz ed section and content) Reason Comments Amenorrhea Reason Comments Routine Visit Reason Comments Follow-up Reason Comments Alpha Thal Carrier Specialty Diagnoses / Procedures Referred By Contchloe t Referred To Contact Maternal and Medicine Diagnoses Thalassemia alpha carrier Henny Montgomery MD [address], [address] [place] [address] Phone: tel: fax: [facility] at [facility] [address] [place] [address] Phone: tel: fax: Referral ID Status Reason Start Date Expiration Date Visits Requested Visits Authorized [id number] Pending Review Specialty Services Required 12/09/2024 12/09/2025 1 1 FOR RECORDS PERTAINING TO PATIENTS WHO ARE [...] BE BASED ON THE PRIMARY CLINICAL RECORDS. [facility]. provides no warranty or guarantee of the accuracy or completeness of information in this document.
--- NOTE | 2024-12-29 03:45 | ED.GENADUL1 ---
HPI HPI - General Adult General Stated complaint: SKIN IRRITATION, 27 WEEKS Time Seen by Provider: 12/29/24 03:37 Source: patient Mode of arrival: ambulance Limitations: no limitations History of Present Illness HPI narrative: 34-year-old female presented to the emergency department for painful genital rash. She has had it for a few days and it is continuously burning. She has had a recent new sexual partner. No vaginal discharge. She states she is 27 weeks , no vaginal discharge and no vaginal bleeding. She has no history of genital herpes but is afraid that it is genital herpes. The rash is continuous. Related Data Home Medications ?Medication ?Instructions ?Recorded ?Confirmed adapalene 0.1 % topical cream 1 applic topical DAILY 02/19/24 02/19/24 Previous Rx's ?Medication ?Instructions ?Recorded valacyclovir 1 gram tablet 1,000 mg PO BID 10 days #20 tabs 12/29/24 (Valtrex) Allergies Allergy/AdvReac Type Severity Reaction Status Date / Time labetalol Allergy Severe Hives Verified 12/29/24 03:32 methimazole Allergy Severe tongue Verified 12/29/24 03:32 swelling Opioid HPI Opioid Management Most Recent Opioid Data: Last Pain Scale 6 02/22/24 10:38 02/22/24 Ur Phencyclidine Scrn Negative (NEGATIVE) 09/11/24 11:30 09/11/24 Review of Systems ROS Narrative A ten point review of systems is negative except as noted above. PFSH [facility] Medical History (Updated 12/29/24 @ 03:43 by Corey Wall MD) Endometrial tumor ?D49.59 - Neoplasm of unspecified behavior of other genitourinary organ (ICD-10) Endometriosis ?N80.9 - Endometriosis, unspecified (ICD-10) Hyperthyroidism ?E05.90 - Thyrotoxicosis, unspecified without thyrotoxic crisis or storm (ICD-10) Depression ?F32.A - Depression, unspecified (ICD-10) Anxiety ?F41.9 - Anxiety disorder, unspecified (ICD-10) Constipation ?K59.00 - Constipation, unspecified (ICD-10) Anemia ?D64.9 - Anemia, unspecified (ICD-10) Surgical History (Updated 02/19/24 @ 12:30 by Kayleigh Orourke RN) H/O section ?Z98.891 - History of uterine scar from previous surgery (ICD-10) Family History (Updated 02/19/24 @ 12:13 by Kayleigh Orourke RN) Other Family history of COPD (chronic obstructive pulmonary disease) Family history of diabetes mellitus Family history of hypertension Family history of myocardial infarction Family history of stroke Hyperthyroidism Social History (Updated 02/19/24 @ 12:12 by Kayleigh Orourke RN) Within the past year, how often did you have a drink containing alcohol: 2-4 times a month Smoking status: Never smoker Second hand tobacco smoke exposure: No Non-prescribed substance use: cannabis (any form) Non-prescribed substance use details: on rare occasion Previous occupational history: [employer] Highest level of school completed/degree received: high school graduate Exam Narrative Exam Narrative: Nurses note and vital signs reviewed and patient is not hypoxic. General: The patient appears well and in no apparent distress. Patient is resting comfortably on cart. Skin: Warm, dry, no pallor noted. There is no rash noted. Head: Normocephalic, atraumatic Eye: Normal conjunctiva, no drainage Ears, Nose, Mouth, and Throat: oral mucosa is moist. Nares patent. Cardiovascular: Regular Rate and Rhythm Respiratory: Patient is in no distress, no accessory muscle use, lungs are clear to auscultation, no wheezing, rales or rhonchi Back: non-tender GI: Soft and nontender : She has multiple blisters on each labia majora. No purulent drainage. Musculoskeletal: The patient has no evidence of calf tenderness, no pitting edema, symmetrical pulses noted bilaterally Neurological: A&O, normal speech Psychiatric: Cooperative Constitutional Vital Signs, click to edit/add: Last Vital Signs Temp 98.7 F 12/29/24 03:27 Pulse 98 H 12/29/24 03:27 Resp 16 12/29/24 03:27 BP 124/88 12/29/24 03:27 Pulse Ox 99 12/29/24 03:27 O2 Del Method Room Air 12/29/24 03:27 Course Vital Signs Vital signs: Vital Signs Temperature 98.7 F 12/29/24 03:27 Pulse Rate 98 H 12/29/24 03:27 Respiratory Rate 16 12/29/24 03:27 Blood Pressure 124/88 12/29/24 03:27 Pulse Oximetry 99 12/29/24 03:27 Oxygen Delivery Method Room Air 12/29/24 03:27 Temperature 98.7 F 12/29/24 03:27 Pulse Rate 98 H 12/29/24 03:27 Respiratory Rate 16 12/29/24 03:27 Blood Pressure 124/88 12/29/24 03:27 Pulse Oximetry 99 12/29/24 03:27 Oxygen Delivery Method Room Air 12/29/24 03:27 Medical Decision Making MDM Narrative Medical decision making narrative: I have high clinical suspicion for genital herpes and she is prescribed Valtrex. Follow-up promptly with her agency director. Treatment diagnosis and follow-up were discussed with the patient. Differential Diagnosis Differential Diagnosis: Genital herpes, folliculitis Discharge Plan Discharge Clinical Impression: Genital herpes affecting Patient Disposition: Home, Self-Care Time of Disposition Decision: 03:43 Condition: Good Mode of Transportation: Private Vehicle Prescriptions / Home Meds: New valacyclovir [Valtrex] 1 gram tablet 1,000 mg PO BID 10 Days Qty: 20 0RF No Action adapalene 0.1 % cream 1 applic topical DAILY Print Language: Turkmen Instructions: Genital Herpes Infection (ED) Referrals: Physician,Non-Staff, MD [Primary Care Provider] - 1 week
[2024-12-29] MEDS: VALACYCLOVIR HCL 500 MG TABLET 1000 MG PO (04:06)
--- NOTE | 2024-12-29 05:11 | PC.NURSE ---
patient c/o vaginal blisters starting 3 days ago. states that she has had new sexual partners 2 weeks ago. symptoms started 1 week ago
[2024-12-31 15:09] LABS: HSV-1 DNA Negative (Negative); HSV-2 DNA Positive (Negative)
== END 2024-12-29 04:30 | disposition home or self-care (01) ==
PROVIDERS: Emergency Provider Emergency Medicine
DX: O98.312 Other infections with a predominantly sexual mode of transmission complicating pregnancy, second trimester (principal); A60.09 Herpesviral infection of other urogenital tract; Z3A.27 27 weeks gestation of pregnancy
CPT/HCPCS: 87491; 87529; 87591; 99283

== ENCOUNTER 2025-01-06 09:22 | Outpatient (OUT) | payer OTHER, MEDICAID, SELFPAY ==
[2025-01-06 10:55] LABS: Basophils Percent Auto 0.2 % (0.2-2.0); Eosinophils Absolute Auto 0.1 10^3/uL (0.0-0.7); Eosinophils Percent Auto 1.2 % (0.9-7.0); Hematocrit 29.8 % (36.0-48.0); Hemoglobin 9.3 g/dL (12.0-16.0); Immature Granulocytes Abs Auto 0.03 10^3/uL (0.00-0.03); Immature Granulocytes Pct Auto 0.4 % (0.0-0.5); Lymphocytes Absolute Auto 1.3 10^3/uL (1.2-3.8); Lymphocytes Percent Auto 15.8 % (20.5-60.0); Mean Corpuscular HGB Conc 31.2 g/dL (29.9-35.2); Mean Corpuscular Hemoglobin 24.2 pg (26.7-34.0); Mean Corpuscular Volume 77.4 fL (81.0-99.0); Mean Platelet Volume 11.7 fL (9.5-13.5); Monocytes Absolute Auto 0.5 10^3/uL (0.3-0.8); Monocytes Percent Auto 6.2 % (1.7-12.0); Neutrophils Absolute Auto 6.3 10^3/uL (1.4-6.5); Neutrophils Percent Auto 76.2 % (43.0-75.0); Platelet Count 184 10^3/uL (150-450); Red Blood Count 3.85 10^6/uL (4.20-5.40); Red Cell Distribution Width 13.5 % (11.0-15.0); White Blood Count 8.3 10^3/uL (4.0-11.0)
[2025-01-06 11:06] LABS: Glucose 1 Hour 124 mg/dL (<130)
== END 2025-01-06 09:23 | disposition home or self-care (01) ==
PROVIDERS: Visit Provider Physician Assistant
DX: Z13.1 Encounter for screening for diabetes mellitus (principal)
CPT/HCPCS: 36415; 82950; 85025

== ENCOUNTER 2025-01-08 07:56 | Observation (INO) | payer OTHER, MEDICAID, SELFPAY ==
[2025-01-08 08:14] VITALS: BP 121/64; PULSE 86
[2025-01-08 08:40] LABS: Basophils Percent Auto 0.2 % (0.2-2.0); Eosinophils Absolute Auto 0.1 10^3/uL (0.0-0.7); Hematocrit 30.3 % (36.0-48.0); Hemoglobin 9.4 g/dL (12.0-16.0); Immature Granulocytes Abs Auto 0.05 10^3/uL (0.00-0.03); Immature Granulocytes Pct Auto 0.6 % (0.0-0.5); Lymphocytes Absolute Auto 1.2 10^3/uL (1.2-3.8); Lymphocytes Percent Auto 13.6 % (20.5-60.0); Mean Corpuscular Hemoglobin 23.9 pg (26.7-34.0); Mean Corpuscular Volume 77.1 fL (81.0-99.0); Mean Platelet Volume 11.3 fL (9.5-13.5); Monocytes Absolute Auto 0.6 10^3/uL (0.3-0.8); Monocytes Percent Auto 6.7 % (1.7-12.0); Neutrophils Absolute Auto 6.9 10^3/uL (1.4-6.5); Neutrophils Percent Auto 77.9 % (43.0-75.0); Platelet Count 187 10^3/uL (150-450); Red Blood Count 3.93 10^6/uL (4.20-5.40); Red Cell Distribution Width 13.4 % (11.0-15.0); White Blood Count 8.9 10^3/uL (4.0-11.0)
[2025-01-08 08:49] LABS: Estimated GFR (African America >60 (>=60 mL/min/1.73m^2); Estimated GFR (Non-African Ame >60 (>=60 mL/min/1.73m^2)
[2025-01-08 08:52] LABS: Bilirubin Urine NEGATIVE (NEGATIVE); Blood Urine TRACE-I (NEGATIVE); Clarity Urine CLEAR (CLEAR); Color Urine LT. YELLOW (YELLOW); Glucose Urine UA NEGATIVE (NEGATIVE); Ketones Urine NEGATIVE (NEGATIVE); Leukocyte Esterase Urine TRACE (NEGATIVE); Nitrite Urine NEGATIVE (NEGATIVE); Protein Urine NEGATIVE (NEG/TRACE); Urobilinogen Urine 0.2 EU/dL (0.2-1.0); pH Urine 6.5 (5.0-9.0)
[2025-01-08 08:54] LABS: Urine Microscopic Indicated YES
[2025-01-08 09:04] LABS: Bacteria Urine MODERATE #/HPF (NONE SEEN); Mucus Urine NONE SEEN (NONE SEEN)
[2025-01-08 09:05] LABS: Cast Seen? NONE SEEN #/LPF (NONE SEEN); Crystals Seen? None Seen #/HPF (None Seen); Squamous Epithelial Cell Urine MODERATE #/LPF (NONE/RARE); Urine Culture Indicated YES-LC
== END 2025-01-08 09:20 | disposition home or self-care (01) ==
LOC: FBC 07:58
PROVIDERS: Admitting Provider Obstetrics & Gynecology; Visit Provider Obstetrics & Gynecology
DX: O99.891 Other specified diseases and conditions complicating pregnancy (principal); R33.9 Retention of urine, unspecified; Z3A.27 27 weeks gestation of pregnancy
CPT/HCPCS: 36415; 59025; 81001; 82565; 84520; 85025; 87086; G0378; G0379

== ENCOUNTER 2025-02-09 07:53 | Outpatient (OUT) | payer OTHER, MEDICAID, SELFPAY ==
--- OUTSIDE RECORDS SUMMARY | 2022-11-20 08:27 | XMS_ITS | Continuity of Care Document ---
Author Organization [facility] Address [address] [place] [address] Phone Care Team Providers Care Ct Scan Technologist Name Role Phone Dawson Hernandez Unavailable Unavailable [...] Diagnoses Date Provider Providers Copied on Encounter [facility], [address] [place], [place], [address], [place] tel:[phone] [facility] No Information Nov-0 3 Vida Conrad. [address] [place], [place], [address] , [place]. tel:[phone] [facility], [address] [place], [place], [address], [place] tel:[phone] [facility] No Information Elinaruchi Dawson. [address] [place], [place], [address] , [place]. tel: [phone] PREV VISIT, NEW, AGE 18-39 [facility], [address] [place], [place], [address], [place] tel:[phone] [facility] establish care (chief complaint)b irth control (chief complaint) Gynecological ExaminationOther specified contraceptive management 4 Prashanth [facility] Maggy. [address] [place], [place], [address] , [place]. tel: [phone] Family History Family Member Type Diagnosis Age [...] Insurance type Covered libertarian ID Authoriza tion(s) [facility] CI [id number] Medicaid Wrap - [facility] [place] [id number] [facility] [id number] Medicaid Wrap - [facility] [place] [id number] Social History Type Description Quantity Date Captured [...]
--- OUTSIDE RECORDS SUMMARY | 2024-07-23 09:30 | XMS_ITS ---
Author Organization [facility] Address [address] [place] [address] Care Team Providers Care Supervisor Dry Paste Name Role Phone Yudelka Lopez Primary Care Provider Dr. Leroy Salazar Unavailable [phone] REASON FOR VISIT cough, congestion Encounters Encounter Location Date Provider Diagnosis [facility] [address] [place] [address] 07/23/2024 Yudelka Lopez Plan Of Treatment No Information Progress Notes * LISHA FONSECA GDOB: [birth year] (34 yo F)Acc No.[id number]:07/23/2024 PROGRESS NOTES Patient: Deb SANCHEZ LISHA Moe Provider: Rowan Lopez :1990 A ge:34 Y S ex:Female Date:07/23/2024 Address:[address], [id number] Subjective: * Chief Complaints: * 1 . Cough, congestion. * Medical History: Objective: * Vitals: Assessment: Plan: * Treatment: * Images: * Electronic signature of Howard Lopez CNP on 02/09/2025 at 07:55 AM EDT Sign off status: Pending * Provider: Rowan Lopez Date: 09/22/2023 Generated for Damon dailey/Timothy/eTransmitting on: 0 02/09/2025 07:55 AM EDT
--- OUTSIDE RECORDS SUMMARY | 2024-11-28 05:20 | XMS_ITS ---
Author Organization [facility] Servic es Address [address] [facility] [place] [address] Care Team Providers Care Sample Clerk Name Role Phone Yudelka Lopez Primary Care Provider [phone] Leroy Salazar Unavailable [phone] REASON FOR VISIT new pt Encounters Encounter Location Date Provider Diagnosis [facility] Services [address] [place] [address] 11/28/2024 Leroy Salazar Plan Of Treatment No Information Progress Notes * LISHA FONSECA GDOB: [birth year] (34 yo F)Acc No.[id number]:11/28/2024 Patient: ISAAK MALCOLMLEY Moe Provider: Deb Salazar DDS :1990 A ge:34 Y S ex:Female Date:11/28/2024 Address:[address] [place] [address], [address], [id number] Pcp:Yudelka Lopez Subjective: * Chief Complaints: * 1 . New pt. * Medical History: Objective: * Vitals: Assessment: Plan: * Treatment: * Images: * Electronic signature of Dr. Leroy Salazar , DMD on 02/09/2025 at 07:56 AM EDT Sign off status: Pending * Provider: Deb Salazar DDS Date: 11/28/2024 Generated for Printi ng/Faxing/eTransmitting on: 02/09/2025 07:56 AM EDT
--- OUTSIDE RECORDS SUMMARY | 2025-01-27 08:30 | XMS_ITS | Encounter Summary ---
Author Organization [facility] Address [address] [place] [address] Care Team Providers Care Gas Plant Repairer Name Role Phone Sarah Lopez DO Unavailable [phone] Reason for Visit * Reason Comments Routine Visit Encounter Details Date Type Department Care Team (Latest Contact Info) Description 01/27/2025 8:30 AM EDT Routine [facility] [address] [place] [id number] Malcolm Pendleton [address] [facility] [address] [facility] [address] Mary Garcia, [facility] [address] Third trimester ; 30 weeks gestation of ; H/O pre-eclampsia in prior , currently ; H/O delivery, currently ; Request for sterilization Social History Tobacco Use Types Packs/Day Years Used Date Smoking Tobacco: Never Smokeless Tobacco: Never Alcohol Use Standard Drinks/Week Comments Yes 1 (1 standard drink = 0.6 oz pur e alcohol) AUDIT-C Answer Date Recorded Frequency of Alcohol Consumption Not on file 07/09/2023 Q2: How many drinks containi ng alcohol do you have on a typical day when you are drinking? 1 or 2 07/09/2023 Q3: How often do you have si x or more drinks on one occasion? Monthly 07/09/2023 Estimated Date of Delivery Comme nts Yes 04/05/2025 Based on Ultraso und Sex and Gender Information Value Date Recorded Sex Assigned at Not on file Legal Sex Female 7:06 PM EDT Gender Identity Not on file Sexual Orientation Not on file documented as of this encounter Last Filed Vital Signs Vital Sign Reading Time Taken Comments Blood Pressure 128/78 01/27/2025 8:57 AM EDT Pulse - - Temperature - - Respiratory Rate - - Oxygen Saturation - - Inhaled Oxygen Concentration - - Weight 90.3 kg (199 lb) 01/27/2025 8:57 AM EDT Height - - Body Mass Index 35.25 02/19/2024 10:46 AM EDT documented in this encounter Progress Notes * Michell Patten, BELT PRESS OPERATOR - 01/27/2025 8:30 AM EDT Reason for Appointment: Patient ID: Leandra Valentin is a 34 y.o. female who presents for Routine Visit Patient presents today for Return OB appointment. MEDICATIONS Current Outpatient Medications Medication Instructions triamcinolone (Kenalog) 0.1 % cream Apply to affected areas, up to twice a day when flared, do not use one the face, groin, or underarms, 30 day supply valACYclovir (VALTREX) 500 mg, Oral, Daily ALLERGIES Allergies Allergen Reactions Labetalol Other, Shortness [...] Ambulatory Problems Past Medical History: Diagnosis Date Abnormal results of thyroid function studies Acid reflux 02/2017 Alpha thalassemia silent carrier Anemia Endometriosis Fibroid, uterine History of anemia History of hyperthyroidism Hypothyroidism (CMS/HCC) Irregular menses Menometrorrhagia Nontoxic multinodular goiter (CMS/HCC) Overweight (BMI 25.0-29.9) Syncope 06/2016 Varicella zoster Vitamin D deficiency HISTORY PAST MEDICAL HISTORY SOCIAL HISTORY Past Medical History: Diagnosis Date Abnormal results of thyroid function studies Acid reflux 02/2017 [facility] Alpha thalassemia silent carrier Anemia Endometriosis Fibroid, uterine History of anemia History of hyperthyroidism Hypothyroidism (CMS/HCC) Irregular menses Menometrorrhagia Nontoxic multinodular goiter (CMS/HCC) Overweight (BMI 25.0-29.9) Syncope 06/2016 [facility] Er Varicella zoster Vitamin D deficiency Social History Tobacco Use Smoking status: Never Smokeless tobacco: Never Vaping Use Vaping status: Never Used Substance Use Topics Alcohol use: Yes Alcohol/week: 1.0 standard drink of alcohol Types: 1 Glasses of wine per week Drug use: Never FAMILY HISTORY Family History Problem Relation Name Age of Onset Diabetes Mother Makenna Hypertension Mother Makenna Hypertension Father Tucker Deep vein thrombosis Father Tucker Diabetes Father Tucker Heart disease Father Tucker Arthritis Father Tucker Heart attack Father Tucker Crohn's disease Sister Thyroid disease Sister Jailyn Leukemia Paternal Grandfather Melanoma Neg Hx SURGICAL HISTORY Past Surgical History: Procedure Laterality Date SECTION, LOW TRANSVERSE 2015 31 weeks/PIH Mccormick SECTION, LOW TRANSVERSE 09/03/[address] ANGIOGRAM CHEST 06/28/2018 CT ANGIOGRAM CHEST [facility] ANGIOGRAM CHEST 06/28/2018 CT ANGIOGRAM CHEST [facility] PAP SMEAR 07/03/2022 negative TUMOR REMOVAL REVIEW OF SYSTEMS Review of Systems: Review [...] nursing note reviewed. Exam conducted with a explosive operator bomb present. Vitals: Estimated body mass index is 35.25 kg/m?? as calculated from the following: Height as of 02/19/24: 5' 3 . Weight as of this encounter: 199 lb. BP: 128/78 Patient's last menstrual period was 06/23/2024. ASSESSMENT & PLAN ICD-10-CM 1. Third trimester Z34.93 CANCELED: POCT urinalysis dipstick manually resulted 2. 30 weeks gestation of Z3A.30 3. H/O pre-eclampsia in prior , currently O09.299 US biophysical profile w non stress test 4. H/O delivery, currently O09.899 US biophysical profile w non stress test 5. Request for sterilization Z30.2 Return OB: Patient presents today for a routine obstetrics appointment. Patient is currently 30w2d . Patient states she is doing well but has complaints of being tired due to current . Patient has verbalizes frequent movement. labor precautions was discussed/given and patient was instructed to perform kick counts three times a day. Pt to start NST/BPP at 32 weeks. Pt desires sterilization. Pt to come off work at this time d/t h/o delivery d/t preeclampsia. Pt has bilateral LE Orders Placed This Encounter Procedures US biophysical profile w non stress test Follow Up: Patient is to return to office in 2 week for routine OB appointment. Documented by Michell Patten LPN on behalf of: Malcolm Pendleton DO documented in this encounter Plan of Treatment Upcoming Encounters Date Type Department Care Team (Late st Contact Info) Description 02/11/2025 10:50 AM EDT Routine [facility] [address] [place] [phone] Priscilla Warren PA [address] [place] [address] 11/19/2025 10:50 AM EST Office Visit [facility] [address] [place] [address] Kayleigh Chung APRN-ACTIVITIES DIRECTOR [address] [place] [address] Scheduled Orders Name Type Priority Associated Diagnoses Orde r Schedule US biophysical profile w non stress test Imaging Routine H/O pre-eclampsia in prior , currently H/O delivery, currently Expected: 01/27/2025 (Approximate), Expires: 07/30/2025 documented as of this encounter Visit Diagnoses Diagnosis Third trimester state, incidental 30 weeks gestation of H/O pre-eclampsia in prior , currently H/O delivery, currently Request for sterilization documented in this encounter Care Teams Gas Plant Repairer Relationship Specialty Start Date End Date Sarah Lopez DO [address] [place] [address] Referring Physician Emergency Medicine 02/18/23 documented as of this encounter
--- OUTSIDE RECORDS SUMMARY | 2025-01-27 09:56 | XMS_ITS | Encounter Summary ---
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 Name Role Phone No Pcp, No Pcp Primary Care Provider Unavailabl e Reason for Referral * Diagnostic Imaging (Routine) - Pending Review Specialty Diagnoses / Procedures Referred By Contac t Referred To Contact Maternal and Medicine Diagnoses History of anemia Procedures US MF with or without consult Torey Montgomery MD [address], [address] [place] [address] Phone: tel: fax: Maternal- Medicine at [place] [id number] [place] [address] Phone: tel: fax: Referral ID Status Reason Start Date Expiration Date V isits Requested Visits Authorized [id number] Pending Review 11/21/2024 11/21/2025 1 1 Reason for Visit * Diagnostic Imaging (Routine) - Pending Review Specialty Diagnoses / Procedures Referred By Contac t Referred To Contact Maternal and Medicine Diagnoses History of anemia Procedures US MFM with or without consult Torey Montgomery MD [address], [address] [place] [address] Phone: tel: fax: Maternal- Medicine at [facility] [address] [place] [address] Phone: tel: fax: Referral ID Status Reason Start Date Expiration Date V isits Requested Visits Authorized [id number] Pending Review 11/21/2024 11/21/2025 1 1 Encounter Details Date Type Department Care Team (Latest Contact Info) Description 01/27/2025 9:56 AM EDT - 01/27/2025 11:59 PM EDT Hospital Encounter [facility] - Ultrasound [address] [place] [id number] History of anemia Discharge Disposition: Home Social History Tobacco Use Types Packs/Day Years Used Date Smoking Tobacco: Never Smokeless Tobacco: Never Alcohol Use Standard Drinks/Week Comments Not Currently 1 (1 standard drink = 0.6 oz pur e alcohol) Childcare Answer Date Recorded Childcare Unknown 02/25/2019 Employment Answer Date Recorded Employment Unknown 02/25/2019 Hunger Screening Answer Date Recorded Within the past 12 months we worried whether our food would run out before we got money to buy more. Never True 11/21/2024 Within the past 12 months th e food we bought just didn't last and we didn't have money to get more. Never True 11/21/2024 Purpose - Life Answer Date Recorded Purpose and direction in life Unknown Estimated Date of Delivery Comme nts Yes 04/05/2025 Based on Ultraso und Sex and Gender Information Value Date Recorded Sex Assigned at Not on file Legal Sex Female 4:03 PM EDT Gender Identity Not on file Sexual Orientation Not on file documented as of this encounter Medications at Time of Discharge aspirin 81 mg Take 81 mg by mouth daily. ferrous sulfate 325 (65 FE) mg tablet Take 325 mg by mouth daily with breakfast. labetalol (NORMODYNE) 100 mg tablet Take 100 mg by mouth 2 (two) times a day. magnesium oxide (MAGOX) 400 mg tablet Take 1 tablet (400 mg total) by mouth in the morning. metoclopramide (REGLAN) 10 mg tablet Take 1 tablet (10 mg total) by mouth in the morning and 1 tablet (10 mg total) at noon and 1 tablet (10 mg total) in the evening and 1 tablet (10 mg total) before bedtime. ondansetron (ZOFRAN) 8 mg tablet Take by mouth every 8 (eight) hours as needed for nausea or vomiting. 25/iron fum/folic/dha (-1 ORAL) Take 1 tablet by mouth daily. 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 Para 2 T1P1L1 Current ----- --------- Cell free DNA low risk analysis Maternal Assessment ----- --------- Physical Exam Height 160 cm, 5 ft 3 in. Initial weight 83 kg, 184 lb. Initial BMI 32.59 kg/m Method ----- --------- Transabdominal ultrasound examination. View: Suboptimal view: limited by position ----- --------- Krueger . Number of fetuses: 1 Dating ----- --------- LMP on: 06/23/2024 GA by LMP 31 w + 1 d MORALES by LMP: 03/30/2025 GA by prior assessment 30 w + 2 d MORALES by prior assessment: 04/05/2025 Ultrasound examination on: 01/27/2025 GA by U/S based upon: AC, BPD, Femur, HC GA by U/S 30 w + 3 d MORALES by U/S: 04/04/2025 Assigned: based on stated MORALES, selected on 11/21/2024 Assigned GA 30 w + 2 d Assigned MORALES: 04/05/2025 General Evaluation ----- --------- Cardiac activity Present. FHR 141 bpm. Presentation: cephalic Placenta: Placental site: posterior, away from cervical os Umbilical cord: Cord vessels: 3 vessel cord. Insertion site: normal insertion Amniotic fluid: Amount of AF: normal amount. MVP 5.9 cm Biometry ----- --------- Standard BPD 79.3 mm 31w 6d 83% Hadlock OFD 97.0 mm 31w 2d 77% Osiel HC 279.9 mm 30w 5d 24% Hadlock Cerebellum tr 36.6 mm 30w 1d 31% Hill AC 250.6 mm 29w 2d 18% Hadlock Femur 56.7 mm 29w 5d 22% Hadlock Humerus 50.1 mm 29w 2d 27% Osiel HC / AC 1.12 EFW 1,447 g 22% Hadlock EFW (lb) 3 lb EFW (oz) 3 oz EFW by: Hadlock ([id number]) Extended Tibia 48.0 mm 29w 0d 16% Osiel Enterprise Project Manager 3.6 mm CM 5.9 mm 19% Nicolaides Head / Face / Neck Cephalic index 0.82 76% Nicolaides Nasal bone: present Extremities / Bony Struc FL / BPD 0.72 FL / HC 0.20 FL / AC 0.23 Other Structures FHR 141 bpm Anatomy ----- --------- The following structures appear normal: Head/Neck: Cranium. Lateral ventricles. Choroid plexus. Cavum septi pellucidi. Cerebellum. Cisterna magna. Parenchyma. Face: Lips. Profile. Nose. Nasal bone. Heart/Thorax: 4-chamber view. RVOT view. LVOT view. 4-rrjqil-newynlb view. Situs. Aortic arch view. Bicaval view. Ductal arch view. Interventricular septum. Great vessels. Cardiac position. Cardiac axis. Cardiac size. Cardiac rhythm. Diaphragm. Abdomen: Stomach. Kidneys. Bladder. Small bowel. Large bowel. Spine: Cervical spine. Thoracic spine. Lumbar spine. Sacral spine. Extremities/Skeleton: Left hand. Skeleton The following structures were documented previously: Head / Neck Midline falx. Vermis. Neck. Face Maxilla. Mandible. Orbits. Heart / Thorax 3-vessel view. Right lung. Left lung. Abdomen Abdom. wall. Cord insertion. Right renal artery. Left renal artery. Genitals. Extremities / Right upper arm. Right forearm. Right hand. Left upper arm. Left forearm. Right upper leg. Right lower leg. Right foot. Left upper leg. Left lower leg. Left foot. Doppler ----- --------- Mid Cerebral Artery: normal PI 1.99 30% Ebbing RI 0.84 71% [facility] PS 50.72 cm/s PS 1.24 MoM ED 8.29 cm/s TAmax 22.44 cm/s 87% Ebbing Maternal Structures ----- --------- Uterus Visualized Cervix Visualized Right Ovary Not visualized Left Ovary Visualized Size 34 mm x 21 mm x 15 mm. Vol 5.3 cm Cul de Sac Suboptimal Impression ----- --------- Single viable intrauterine with appropriate interval growth. EFW measures at the 22%, AC measures at the 18%. anatomic survey did not reveal sonographic evidence of any gross structural abnormalities. Right choroid plexus cyst no longer appreciated. Double right renal artery not evaluated. MCA PSV is in the unremarkable range for the evaluation of anemia. Amniotic fluid MVP measures 5.9 cm. Recommendations ----- --------- The patient is scheduled in four weeks for follow up growth ultrasound and MCA every 2 weeks. Subsequent follow up or other follow up as clinically determined by primary OB provider unless otherwise specified by M. Results forwarded to ordering provider so they can follow up with the patient as necessary. Procedure Note Terence Escobedo MD - 01/27/2025 NAME: MARIAN HUSAIN : 1990 SEX: F Accession Number: [id number] ORDERING PHYSICIAN: TOREY MONTGOMERY REFERRING PHYSICIAN: MARIA HARTLEY Coding ----- --------- Procedures [id number]: Follow-up Ultrasound, per fetus [address]: Doppler velocimetry, ; middle cerebral artery Indication ----- --------- Previous x2 , History of prior with pre-eclampsia ,History of prior with delivery @ 31weeks , Supervision of high risk - Alpha thalassemia silentcarrier, Obesity in , Screening for follow-up survey History ----- --------- OB History 3. Para 2 T1P1L1 Current ----- --------- Cell free DNA low risk analysis Maternal Assessment ----- --------- Physical Exam Height 160 cm, 5 ft 3 in. Initial weight 83 kg, 184 lb.Initial BMI 32.59 kg/m Method ----- --------- Transabdominal ultrasound examination. View: Suboptimal view: limited byfetal position ----- --------- Krueger . Number of fetuses: 1 Dating ----- --------- LMP on: 06/23/2024 GA by LMP 31 w + 1 d MORALES by LMP: 03/30/2025 GA by prior assessment 30 w + 2 d MORALES by prior assessment: 04/05/2025 Ultrasound examination on: 01/27/2025 GA by U/S based upon: AC, BPD, Femur, HC GA by U/S 30 w + 3 d MORALES by U/S: 04/04/2025 Assigned: based on stated MORALES, selected on 11/21/2024 Assigned GA 30 w + 2 d Assigned MORALES: 04/05/2025 General Evaluation ----- --------- Cardiac activity Present. FHR 141 bpm. Presentation: cephalic Placenta: Placental site: posterior, away from cervical os Umbilical cord: Cord vessels: 3 vessel cord. Insertion site: normalinsertion Amniotic fluid: Amount of AF: normal amount. MVP 5.9 cm Biometry ----- --------- Standard BPD 79.3 mm 31w 6d 83% Hadlock OFD 97.0 mm 31w 2d 77% Osiel HC 279.9 mm 30w 5d 24% Hadlock Cerebellum tr 36.6 mm 30w 1d 31% Hill AC 250.6 mm 29w 2d 18% Hadlock Femur 56.7 mm 29w 5d 22% Hadlock Humerus 50.1 mm 29w 2d 27% Osiel HC / AC 1.12 EFW 1,447 g 22% Hadlock EFW (lb) 3 lb EFW (oz) 3 oz EFW by: Hadlock ([id number]) Extended Tibia 48.0 mm 29w 0d 16% Osiel Enterprise Project Manager 3.6 mm CM 5.9 mm 19% Nicolaides Head / Face / Neck Cephalic index 0.82 76% Nicolaides Nasal bone: present Extremities / Bony Struc FL / BPD 0.72 FL / HC 0.20 FL / AC 0.23 Other Structures FHR 141 bpm Anatomy ----- --------- The following structures appear normal: Head/Neck: Cranium. Lateral ventricles. Choroid plexus. Cavum septipellucidi. Cerebellum. Cisterna magna. Parenchyma. Face: Lips. Profile. Nose. Nasal bone. Heart/Thorax: 4-chamber view. RVOT view. LVOT view. 2-sgqwzl-dweptce view.Situs. Aortic arch view. Bicaval view. Ductal arch view. Interventricular septum. Great vessels. Cardiacposition. Cardiac axis. Cardiac size. Cardiac rhythm. Diaphragm. Abdomen: Stomach. Kidneys. Bladder. Small bowel. Large bowel. Spine: Cervical spine. Thoracic spine. Lumbar spine. Sacral spine. Extremities/Skeleton: Left hand. Skeleton The following structures were documented previously: Head / Neck Midline falx. Vermis. Neck. Face Maxilla. Mandible. Orbits. Heart / Thorax 3-vessel view. Right lung. Left lung. Abdomen Abdom. wall. Cord insertion. Right renal artery. Left renalartery. Genitals. Extremities / Right upper arm. Right forearm. Right hand. Left upper arm.Left forearm. Right upper leg. Right lower leg. Right foot. Left upper leg. Left lower leg. Left foot. Doppler ----- --------- Mid Cerebral Artery: normal PI 1.99 30% Ebbing RI 0.84 71% [facility] PS 50.72 cm/s PS 1.24 MoM ED 8.29 cm/s TAmax 22.44 cm/s 87% Ebbing Maternal Structures ----- --------- Uterus Visualized Cervix Visualized Right Ovary Not visualized Left Ovary Visualized Size 34 mm x 21 mm x 15 mm. Vol 5.3 cm Cul de Sac Suboptimal Impression ----- --------- Single viable intrauterine with appropriate interval growth. EFWmeasures at the 22%, AC measures at the 18%. anatomic survey did not reveal sonographic evidence of any grossstructural abnormalities. Right choroid plexus cyst no longer appreciated. Double right renal artery not evaluated. MCA PSV is in the unremarkable range for the evaluation of anemia. Amniotic fluid MVP measures 5.9 cm. Recommendations ----- --------- The patient is scheduled in four weeks for follow up growth ultrasound andMCA every 2 weeks. Subsequent follow up or other follow up as clinically determined byprimary OB provider unless otherwise specified by [facility]. Results forwarded to ordering provider so they can follow up with thepatient as necessary. us Torey Montgomery MD [facility] ORDERABLES Final Resul t documented in this encounter Visit Diagnoses Diagnosis History of anemia Personal history of diseases of blood and blood-forming organs documented in this encounter Care Teams Mastic Floor Layer Relationship Specialty Start Date End Date No Pcp, [place] [address] PCP - General Family Medicine 02/21/24 documented as of this encounter
--- OUTSIDE RECORDS SUMMARY | 2025-02-01 13:22 | XMS_ITS ---
Author Name Auto Generated Organization OHIP Care Team Providers Care Mechanist Name Role Phone PRISCILLA ALBARRAN Attending Unavailable HELDER, MARIA Attending Unavailable NARESH KLINE Attending Unavailable PRISCILLA ALBARRAN Attending Unavailable HELDER, MARIA Attending Unavailable REYNOLD AGUDELO Attending Unavailable HELDER, MARIA Attending Unavailable HELDER, MARIA Attending Unavailable HELDER, MARIA Attending Unavailable JANETTE ACKERMAN Attending Unavailable NO PCP, NO PCP Primary Care Unavailable HELDER, MARIA R Referring Unavailable NO PCP, NO PCP Primary Care Unavailable HENNY MONTGOMERY Attending Unavailable HELDER, MARIA R Referring Unavailable NO PCP, NO PCP Primary Care Unavailable HELDER, MARIA R Referring Unavailable NO PCP, NO PCP Primary Care Unavailable HELDER, MARIA R Referring Unavailable NO PCP, NO PCP Primary Care Unavailable HELDER, MARIA R Referring Unavailable NO PCP, NO PCP Primary Care Unavailable HELDER, MARIA R Referring Unavailable NO PCP, NO PCP Primary Care Unavailable Facundo Matthews Primary Care Unavailable Kelly Hough Admitting Unavail able Kelly Hough Attending Unavail able Yudelka Lopez Referring Unavailable Helder, Maria Attending Unavailable Helder, Maria Admitting Unavailable NO FAMILY, PHYSICIAN Primary Care Unavailable Priscilla Albarran Admitting Unavailable Priscilla Albarran Attending Unavailable Driss, Julián Admitting Unavailab le Julián Naqvi Attending Unavailab le John, Yudelka Lora Primary Care Unavailable Driss, Julián Admitting Unavailab le Driss, Julián Attending Unavailab Amisha Carrera Consulting Unavailable Lopez, Yudelka Lora Primary Care Unavailable Jim Vega Admitting Unavailable Jim Vega Attending Unavailable Lopez, Yudelka Lora Primary Care Unavailable Lopez, Yudelka Lora Primary Care Unavailable Sarah Dodd Admitting Unavailable Sarah Dodd Attending Unavailable PROBLEMS DATE TYPE CONDITION / CODE ATTENDING STATUS [facility] 01/28/2025 Unknown Iron deficiency / E61.1(ICD-10) Priscilla Albarran Active [facility] 12/12/2024 Unknown 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(ICD-10) NA Active [facility] 11/21/2024 Unknown Maternal care fo r (suspected) central nervous system malformation or damage in fetus, choroid plexus cysts, fetus 1 / O35.03X1(ICD-10) [facility] 03/17/2019 Unknown Personal history of diseases of the blood and blood-forming organs and certain disorders involving the immune mechanism / Z86.2(ICD-10) [facility] 03/17/2019 Unknown Maternal care fo r unspecified type scar from previous delivery / O34.219(ICD-10) [facility] 03/17/2019 Unknown Supervision of with other poor reproductive or obstetric history, first trimester / O09.291(ICD-10) [facility] 11/21/2024 Unknown Encounter for ot her specified screening / Z36.89(ICD-10) [facility] 11/10/2024 Unknown 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) Kelly Hough [facility] 08/06/2024 Unknown Major depressive disorder, recurrent, unspecified / F33.9(ICD-10) [facility] Adjustment disor jung with depressed mood / F43.21(ICD-10) Driss [facility] 08/06/2024 Unknown Major depressive disorder, recurrent, moderate / F33.1(ICD-10) [facility] Unknown Left lower quadr ant pain / R10.32(ICD-10) Sarah Dodd [facility] 02/21/2024 Unknown Encounter for gynecological examination (general) (routine) without abnormal findings / Z01.419(ICD-10) JANETTE ACKERMAN [facility] 02/21/2024 Unknown Foreign Body in Vagina / FREETEXT(AOF) MEKA JANETTE N [facility] 02/21/2024 Unknown Object in vagina l / UNK(Unknown) ACKERMANJANETTE Familia Active [facility] PROCEDURES No Procedure Records Found RESULTS COMPLETE BLOOD COUNT AUTO DIFF Collected: 02/01/2025 3:44 PM Status: F Source: [facility] TYPE CODE TESTS RESULT OUT OF RANGE REFERENCE UNITS LAB WBC White Blood Count 6.5 Normal 3.8-11.6 10*3/uL LAB UNWBC Uncorrected WBC 6.5 Normal 3.8-11.6 10*3/uL LAB RBC Red Blood Count 3.94 Normal 3.60-5.00 10*6/u L LAB HGB Hemoglobin 9.5 Low 11.8-15.4 g/dL LAB HCT Hematocrit 29.7 Low 34.0-46.4 % LAB MCV Mean Corpuscular Volume 75.3 Low 80-100 fL LAB MCH Mean Corpuscular Hemoglobin 24.1 Low 24.7-34.3 pg LAB MCHC Mean Corpuscular HGB Conc 32.1 Normal 32.0-35.0 g/dL LAB RDW Red Cell Distribution Width 14.2 Normal 11.9-15.3 % LAB PLT Platelet Count 143 Low 150-450 10*3/uL LAB MPV Mean Platelet Volume 9.3 Normal 6.3-10.7 fL LAB MDW Monocyte Distribution Width 20.57 High 0.00-20.00 % Result Comment: For adults i n ED, MDW > 20.0 may be associated with a higher risk of sepsis during the first 12 hrs of hospital admission LAB NE% Neutrophils % (Auto) 73.9 . % LAB LY% Lymphocytes % (Auto) 14.8 . % LAB MO% Monocytes % (Auto) 9.9 . % LAB EO% Eosinophils % (Auto) 1.1 . % LAB BA% Basophils % (Auto) 0.3 . % LAB NRBC% NRBC% 0.1 Normal 0-0.5 /100{WBC } LAB NE# Neutrophils # (Auto) 4.8 Normal 1.8-7.7 10*3/uL LAB LY# Lymphocytes # (Auto) 1.0 Normal 1.00-4.8 10*3/uL LAB MO# Monocytes # (Auto) 0.7 Normal 0.0-0.8 10*3/uL LAB EO# Eosinophils # (Auto) 0.1 Normal 0.0-0.45 10*3/uL LAB BA# Basophils # (Auto) 0.0 Normal 0.0-0.2 10*3/uL Result Comment: PERFORMED BY : [place] [address] PATHOLOGIST SUPERINTENDENT SERVICE TRISTEN MOSELEY M.D. Performed By: #### BMP, CBC #### [address] [address] [facility] BASIC METABOLIC PANEL Collected: 02/01/2025 3:44 PM Status: F Source: [facility] TYPE CODE TESTS RESULT OUT OF RANGE REFERENCE UNITS LAB GLU Glucose 73 Normal 70-100 mg/dL Result Comment: Random Gluco se Reference Range is dependent on time and content of last meal. Glucose of more than 200 mg/dL in a nonstressed, ambulatory subject supports the diagnosis of Diabetes Mellitus. ADA recommended reference range LAB BUN Blood Urea Nitrogen 4 Low 7-25 mg/dL LAB CREATT Creatinine 0.51 Low 0.60-1.20 mg/dL LAB GFReNR Estimated GFR >60.0 mL/Min LAB NA Sodium 136 Normal 136-145 mmol/L LAB K Potassium 3.2 Low 3.5-5.1 mmol/L LAB CL Chloride 107 Normal 98-107 mmol/L LAB CO2 Carbon Dioxide 21.3 Normal 21.0-31.0 mmol/L LAB GAP Anion Gap 10.9 Normal 6.0-15.0 meq/L LAB CA Calcium 7.9 Low 8.6-10.3 mg/dL LAB CRCLPHA Creatinine Clr Calc Pharmacy 164.96 Result Comment: PERFORMED BY : [place] [address] PATHOLOGIST SUPERINTENDENT SERVICE TRISTEN MOSELEY M.D. Performed By: #### BMP, CBC #### [address] [address] [facility] DIPSTICK AND MICROSCOPIC Collected: 3:05 PM Status: F Source: [facility] Order Comment: Name Collecti on Type:: Clean-Voided Midstream TYPE CODE TESTS RESULT OUT OF RANGE REFERENCE UNITS LAB UCOL Color,Urine Light-Yellow Yellow LAB UAPP Appearance,Uri ne Clear Clear LAB USG Specificy Springer,Urine 1.011 Normal 1.001-1.030 LAB UPH pH,Urine 6.5 Normal 5.0-9.0 LAB ULE Leukocyte Esterase,Urine 2+ High Negative LAB UNIT Nitrite,Urine Negative Negative LAB UPRO Protein,Urine Negative Negative LAB UGL Glucose,Urine (UA) Normal Normal LAB UKET Ketones,Urine 3+ High Negative LAB UURO Urobilinogen,U rine Normal Normal LAB UBIL Bilirubin,Urin e Negative Negative LAB UBLD Occult Blood,Urine Negative Negative Result Comment: PERFORMED BY : [place] [address] PATHOLOGIST SUPERINTENDENT SERVICE TRISTEN MOSELEY M.D. LAB URBC RBC,Urine 1-2 0-4 [HPF] LAB UWBC WBC,Urine 1-2 0-4 [HPF] LAB USQEPI Squamous Epithelial Cell,Urine 5-9 High 0-2 [HPF] LAB UBACT Bacteria,Urine 1+ High None Seen LAB UHYALC Hyaline Casts,Urine None 0-8 LAB MUCUS Mucus,Urine Rare Result Comment: PERFORMED BY : [place] [address] PATHOLOGIST SUPERINTENDENT SERVICE TRISTEN MOSELEY M.D. Performed By: #### ADDONUAPL #### [address] QUICK STREP Observed: 02/01/2025 1:47 PM Status: F Source: [facility] Streptococcus pyogenes Ag [P resence] in Throat by Rapid immunoassay Negative for Group A Strep Antigen Note 1 NOTE 2 Results are those of a screening test. NOTE 3 If clinically indicated please order a culture. NOTE 4 NOTE 5 Reference range = Negative PERFORMED BY: [place] [address] PATHOLOGIST SUPERINTENDENT SERVICE TRISTEN MOSELEY M.D. Performed By: #### QS #### [facility] [address] RESPIRATORY (UPPER) PANEL, PCR Observed: 02/01/2025 1:39 PM Status: F Source: [facility] Adenovirus Not detected Bordetella parapertussis Not detected Chlamydia pneumoniae Not detected Coronavirus 229E Not detected Coronavirus HKU1 Not detected Coronavirus NL63 Not detected Coronavirus OC43 Not detected Influenza A Not detected Influenza B Not detected Human Metapneumovirus Not detected Mycoplasma pneumoniae Not detected Parainfluenza Virus 1 Not detected Parainfluenza Virus 2 Not detected Parainfluenza Virus 3 Not detected Parainfluenza Virus 4 Not detected Bordetella pertussis-ptxP Not detected Human Rhino/Enterovirus Not detected Resp. Syncytial Virus Not detected COVID19 Blank Space COVID19 Det Results Detected results will only be called to COVID19 Det Results Providers for Inpatients. COVID19 Blank Space COVID-19 Detected/Not Detected Detected Blank Space FLUA TEST INCLUDES Influenza A tests for the following clinically FLUA TEST INCLUDES significant subtypes: FLUA TEST INCLUDES - Influenza A FLUA TEST INCLUDES - Influenza A H1 FLUA TEST INCLUDES - Influenza A H1 2009 FLUA TEST INCLUDES - Influenza A H3 Blank Space PERFORMED BY: [place] [address] PATHOLOGIST SUPERINTENDENT SERVICE TRISTEN MOSELEY M.D. Performed By: #### RESP PANE L UPP., BIOFIRECOVDET #### [address] BIOFIRE DETECTED Collected: 5 1:39 PM Status: F Source: [facility] TYPE CODE TESTS RESULT OUT OF RANGE REFERENCE UNITS LAB BIOFIRECOVDET BioFire Detected Detected Abnormal Alert Not Detecte Result Comment: This is a du plicate RP2.1 COVID (PCR) result to be used for statistical tracking purpose only. PERFORMED BY: [place] [address] PATHOLOGIST SUPERINTENDENT SERVICE TRISTEN MOSELEY M.D. Performed By: #### RESP PANE L UPP., BIOFIRECOVDET #### [address] TRANSFERRIN Collected: 5 8:32 AM Status: F Source: [facility] TYPE CODE TESTS RESULT OUT OF RANGE REFERENCE UNITS LAB TRANS Transferrin 226 Normal 203-362 mg/dL Performed By: #### TRANS, FE R #### [address] FERRITIN Collected: 5 8:32 AM Status: F Source: [facility] TYPE CODE TESTS RESULT OUT OF RANGE REFERENCE UNITS LAB CONSTANTINO Ferritin 43.0 Normal 11.0-306.8 ng/mL Result Comment: PERFORMED BY : [place] [address] PATHOLOGIST SUPERINTENDENT SERVICE TRISTEN MOSELEY M.D. Performed By: #### TRANS, FE R #### [place] [id number] [facility] COMPLETE BLOOD COUNT AUTO DIFF Collected: 11/07/2024 9:38 AM Status: F Source: F [facility] TYPE CODE TESTS RESULT OUT OF RANGE REFERENCE UNITS LAB WBC White Blood Count 9.9 Normal 3.8-11.6 10*3/uL LAB UNWBC Uncorrected WBC 9.9 Normal 3.8-11.6 10*3/uL LAB RBC Red Blood Count 4.18 Normal 3.60-5.00 10*6/u L LAB HGB Hemoglobin 9.7 Low 11.8-15.4 g/dL LAB HCT Hematocrit 30.7 Low 34.0-46.4 % LAB MCV Mean Corpuscular Volume 73.4 Low 80-100 fL LAB MCH Mean Corpuscular Hemoglobin 23.3 Low 24.7-34.3 pg LAB MCHC Mean Corpuscular HGB Conc 31.7 Low 32.0-35.0 g/dL LAB RDW Red Cell Distribution Width 14.4 Normal 11.9-15.3 % LAB PLT Platelet Count 182 Normal 150-450 10*3/uL LAB MPV Mean Platelet Volume 9.5 Normal 6.3-10.7 fL LAB NE% Neutrophils % (Auto) 75.0 . % LAB LY% Lymphocytes % (Auto) 16.9 . % LAB MO% Monocytes % (Auto) 6.7 . % LAB EO% Eosinophils % (Auto) 1.1 . % LAB BA% Basophils % (Auto) 0.3 . % LAB NRBC% NRBC% 0.1 Normal 0-0.5 /100{WBC} LAB NE# Neutrophils # (Auto) 7.4 Normal 1.8-7.7 10*3/uL LAB LY# Lymphocytes # (Auto) 1.7 Normal 1.00-4.8 10*3/uL LAB MO# Monocytes # (Auto) 0.7 Normal 0.0-0.8 10*3/uL LAB EO# Eosinophils # (Auto) 0.1 Normal 0.0-0.45 10*3/uL LAB BA# Basophils # (Auto) 0.0 Normal 0.0-0.2 10*3/uL Result Comment: PERFORMED BY : [facility] [address] [place] [address] PATHOLOGIST SUPERINTENDENT SERVICE TRISTEN MOSELEY M.D. Performed By: #### CMP, FE a nd TIBC, CBC, CONSTANTINO, FOL #### [facility] [address] [place] [id number] [facility] COMPREHENSIVE METABOLIC PANEL Collected: 11/07/2024 9 :38 AM Status: F Source: [facility] TYPE CODE TESTS RESULT OUT OF RANGE REFERENCE UNITS LAB GLU Glucose 75 Normal 70-100 mg/dL Result Comment: Random Gluco se Reference Range is dependent on time and content of last meal. Glucose of more than 200 mg/dL in a nonstressed, ambulatory subject supports the diagnosis of Diabetes Mellitus. ADA recommended reference range LAB BUN Blood Urea Nitrogen 11 Normal 7-25 mg/d L LAB CREATT Creatinine 0.53 Low 0.60-1.20 mg/dL LAB GFReNR Estimated GFR >60.0 mL/Min LAB NA Sodium 137 Normal 136-145 mmol/L LAB K Potassium 3.8 Normal 3.5-5.1 mmol/L LAB CL Chloride 106 Normal 98-107 mmol/L LAB CO2 Carbon Dioxide 23.4 Normal 21.0-31.0 mmol/L LAB GAP Anion Gap 11.4 Normal 6.0-15.0 meq/L LAB CA Calcium 8.5 Low 8.6-10.3 mg/dL LAB TP Total Protein 6.1 Low 6.4-8.9 g/dL LAB ALB Albumin Level 3.5 Normal 3.5-5.7 g/dL LAB GLOB Globulin 2.6 g/dL LAB AGRATIO Albumin/Globulin Ratio 1.3 LAB BILIT Bilirubin,Total 0.3 Normal 0.3-1.0 mg/dL LAB AST Aspartate Amino Transferase 12 Low 13-39 U/L LAB ALT Alanine Aminotransferase 12 Normal 7-52 U/L LAB ALP Alkaline Phosphatase 42 Normal 34-104 U/L LAB CRCLPHA Creatinine Clr C alc Pharmacy 143.46 Performed By: #### CMP, FE a nd TIBC, CBC, CONSTANTINO, FOL #### [facility] [address] [place] [id number] [facility] IRON AND TIBC PROFILE Collected: 11/07/2024 9:38 AM Status: F Source: [facility] TYPE CODE TESTS RESULT OUT OF RANGE REFERENCE UNITS LAB FE Iron 62 Normal 50-212 ug/dL LAB TIBCT Total Iron Binding Capacity 290 Normal 255-450 ug/dL LAB FESAT% % Iron Saturation 21.4 Normal 20-50 % LAB TRANS Transferrin 207 Normal 203-362 mg/dL Performed By: #### CMP, FE a nd TIBC, CBC, CONSTANTINO, FOL #### [place] [id number] [facility] FERRITIN Collected: 5 9:38 AM Status: F Source: [facility] TYPE CODE TESTS RESULT OUT OF RANGE REFERENCE UNITS LAB CONSTANTINO Ferritin 93.7 Normal 11.0-306.8 ng/mL Performed By: #### CMP, FE a nd TIBC, CBC, CONSTANTINO, FOL #### [facility] [address] [place], [place] [id number] [facility] FOLATE Collected: 5 9:38 AM Status: F Source: [facility] TYPE CODE TESTS RESULT OUT OF RANGE REFERENCE UNITS LAB FOL Folate 8.1 >5.9 ng/mL Result Comment: Folate refer ence range: >5.9 ng/ml The WHO technical consultation on folate and vitamin b12 deficiencies has determined that folate concentrations less than 4 ng/ml are considered deficient. PERFORMED BY: [place] [address] PATHOLOGIST SUPERINTENDENT SERVICE TRISTEN MOSELEY M.D. Performed By: #### CMP, FE a nd TIBC, CBC, CONSTANTINO, FOL #### [place] [id number] [facility] URINE CULTURE Observed: 09/11/2024 11:32 AM Status: F Source: [facility] >100,000 colonies/ml mixed bacterial skin contaminants 2 Days PERFORMED BY: [place] [address] PATHOLOGIST SUPERINTENDENT SERVICE TRISTEN MOSELEY M.D. Performed By: #### CUU #### [place] [id number] [facility] US OB TRANSVAGINAL Observed: 08/07/2024 6:25 PM Status: COMPLETED Source: [facility] [place] [address] Ultrasound Report Signed Patient: Lisha Valentin MR#: [id number] 1238 : 1990 Acct:[id number] Age/Sex: 34 / F ADM Date: 08/06/24 Loc: Room: 5W3024-3 Type: ADM IN Attending Dr: Julián Naqvi MD Ordering Provider: Julián Naqvi MD; AMISHA TRACY MD Date of Service: 08/07/24 US/US OB <= 14 weeks fetus: dating and anatomy ([id number]) US/US OB transvaginal: . Copies to: MD AMISHA Palomo MD FIRST TRIMESTER OB ULTRASOUND (transabdominal [...] AT 5 WEEKS 4 DAYS. FOLLOW-UP SERIAL BETA- HCG AND ULTRASOUND ARE SUGGESTED. POSSIBLE CORPUS LUTEUM AT THE LEFT OVARY. TRACE AMOUNT OF LEFT FREE PELVIC FLUID. POTENTIAL UTERINE FIBROID. Impression dictated by: Michell Miller M.D.08/07/2024 6:32 PM Dictation Location: [place] [address] Tech: Tena Romero Transcribed By: [facility] 08/07/241831 Dictated By: Michell Miller MD 08/07/241824 Signed By: <Electronically signed by MD Michell Miller in OV> 08/07/241831 ECG 12 LEAD ECG Observed: 08/07/2024 8:58 AM Status: COMPLETED Source: [facility] [place] [address] Electrocardiograph Report Signed Patient: Lisha Valentin MR#: [id number] : 1990 Acct:[id number] Age/Sex: 34 / F ADM Date: 08/06/24 Loc: Room: [address] [place] [address] Type: ADM IN Attending Dr: Julián Naqvi [...] by 30 bpm Confirmed by Brock Rowe ([id number]) on 08/07/2024 5:03:20 PM Referred By: Electronically Signed By: Brock Rowe Transcribed By: MUS Signed By Brock Rowe MD 08/07/24 170 DIPSTICK AND MICROSCOPIC Collected: 11:39 PM Status: F Source: [facility] Order Comment: Name Collecti on Type:: Clean-Voided Midstream TYPE CODE TESTS RESULT OUT OF RANGE REFERENCE UNITS LAB UCOL Color,Urine Light-Yellow Yellow LAB UAPP Appearance,Uri ne Clear Clear LAB USG Specificy Springer,Urine 1.016 Normal 1.001-1.030 LAB UPH pH,Urine 7.0 Normal 5.0-9.0 LAB ULE Leukocyte Esterase,Urine Negative Negative LAB UNIT Nitrite,Urine Negative Negative LAB UPRO Protein,Urine Negative Negative LAB UGL Glucose,Urine (UA) Normal Normal LAB UKET Ketones,Urine 3+ High Negative LAB UURO Urobilinogen,U rine Normal Normal LAB UBIL Bilirubin,Urin e Negative Negative LAB UBLD Occult Blood,Urine Trace High Negative LAB URBC RBC,Urine 1 0-4 [HPF] LAB UWBC WBC,Urine 1 0-4 [HPF] LAB USQEPI Squamous Epithelial Cell,Urine 5 High 0-2 [HPF] LAB UBACT Bacteria,Urine Rare None Seen LAB UHYALC Hyaline Casts,Urine None 0-8 LAB MUCUS Mucus,Urine Rare Performed By: #### JESUSONDEANNEPL US, CG, URDS #### [facility] [address] [place] [id number] [facility] HCG,URINE Collected: 11:39 PM Status: F Source: [facility] Order Comment: Name Collecti on Type:: Clean-Voided Midstream TYPE CODE TESTS RESULT OUT OF RANGE REFERENCE UNITS LAB UHCGQ HCG Qualitative,U rine Positive High Result Comment: PERFORMED BY : [place] [address] PATHOLOGIST SUPERINTENDENT SERVICE TRISTEN MOSELEY M.D. Performed By: #### JESUSONUAPL US, [facility] #### [place] [id number] [facility] DRUG SCREEN,URINE Collected: 08/06/2024 11:39 PM Sta tus: F Source: [facility] TYPE CODE TESTS RESULT OUT OF RANGE REFERENCE UNITS LAB URAMPS Amphetamine Screen,Urine Negative Negative LAB URBARBS Barbiturate Screen,Urine Negative Negative LAB URBENZS Benzodiazepines Screen,Urine Negative Negative LAB URCOCS Cocaine Screen,Urine Negative Negative LAB UROPIS Opiate Screen,Urine Negative Negative LAB URPCPS Phencyclidine Screen,Urine Negative Negative LAB URTHCS Cannabinoid Screen,Urine Negative Negative Result Comment: These are un confirmed results and should not be used for legal purposes. Drug Cut-Off Concentration: AMPH 1000 ng/mL BEKA 200 ng/mL CALDERON 200 ng/mL COCM 300 ng/mL OP 300 ng/mL PCP 25 ng/mL THC 20 ng/mL PERFORMED BY: [facility] [address] [place] [address] PATHOLOGIST SUPERINTENDENT SERVICE TRISTEN MOSELEY M.D. Performed By: #### ADDONUAPL US, [facility], URDS #### [facility] [address] [place] [id number] [facility] COMPLETE BLOOD COUNT AUTO DIFF Collected: 08/06/2024 9:53 PM Status: F Source: [facility] TYPE CODE TESTS RESULT OUT OF RANGE REFERENCE UNITS LAB WBC White Blood Count 7.9 Normal 3.8-11.6 10*3/uL LAB UNWBC Uncorrected WBC 7.9 Normal 3.8-11.6 10*3/uL LAB RBC Red Blood Count 4.55 Normal 3.60-5.00 10*6/u L LAB HGB Hemoglobin 10.5 Low 11.8-15.4 g/dL LAB HCT Hematocrit 33.2 Low 34.0-46.4 % LAB MCV Mean Corpuscular Volume 73.0 Low 80-100 fL LAB MCH Mean Corpuscular Hemoglobin 23.0 Low 24.7-34.3 pg LAB MCHC Mean Corpuscular HGB Conc 31.5 Low 32.0-35.0 g/dL LAB RDW Red Cell Distribution Width 14.0 Normal 11.9-15.3 % LAB PLT Platelet Count 220 Normal 150-450 10*3/uL LAB MPV Mean Platelet Volume 9.3 Normal 6.3-10.7 fL LAB MDW Monocyte Distribution Width 17.93 Normal 0.00-20.00 % LAB NE% Neutrophils % (Auto) 79.0 . % LAB LY% Lymphocytes % (Auto) 12.7 . % LAB MO% Monocytes % (Auto) 6.8 . % LAB EO% Eosinophils % (Auto) 0.8 . % LAB BA% Basophils % (Auto) 0.7 . % LAB NRBC% NRBC% 0.0 Normal 0-0.5 /100{WBC } LAB NE# Neutrophils # (Auto) 6.2 Normal 1.8-7.7 10*3/uL LAB LY# Lymphocytes # (Auto) 1.0 Normal 1.00-4.8 10*3/uL LAB MO# Monocytes # (Auto) 0.5 Normal 0.0-0.8 10*3/uL LAB EO# Eosinophils # (Auto) 0.1 Normal 0.0-0.45 10*3/uL LAB BA# Basophils # (Auto) 0.1 Normal 0.0-0.2 10*3/uL Result Comment: PERFORMED BY : [facility] [address] [place] [address] PATHOLOGIST SUPERINTENDENT SERVICE TRISTEN MOSELEY M.D. Performed By: #### ETOH, CBC , CMP #### [facility] [address] COMPREHENSIVE METABOLIC PANEL Collected: 08/06/2024 9 :53 PM Status: F Source: [facility] TYPE CODE TESTS RESULT OUT OF RANGE REFERENCE UNITS LAB GLU Glucose 98 Normal 70-100 mg/dL Result Comment: Random Gluco se Reference Range is dependent on time and content of last meal. Glucose of more than 200 mg/dL in a nonstressed, ambulatory subject supports the diagnosis of Diabetes Mellitus. ADA recommended reference range LAB BUN Blood Urea Nitrogen 7 Normal 7-25 mg/d L LAB CREATT Creatinine 0.64 Normal 0.60-1.20 mg/dL LAB GFReNR Estimated GFR >60.0 mL/Min LAB NA Sodium 137 Normal 136-145 mmol/L LAB K Potassium 3.7 Normal 3.5-5.1 mmol/L LAB CL Chloride 107 Normal 98-107 mmol/L LAB CO2 Carbon Dioxide 22.7 Normal 21.0-31.0 mmol/L LAB GAP Anion Gap 11.0 Normal 6.0-15.0 meq/L LAB CA Calcium 9.0 Normal 8.6-10.3 mg/dL LAB TP Total Protein 7.0 Normal 6.4-8.9 g/dL LAB ALB Albumin Level 4.0 Normal 3.5-5.7 g/dL LAB GLOB Globulin 3.0 g/dL LAB AGRATIO Albumin/Globulin Ratio 1.3 LAB BILIT Bilirubin,Total 0.6 Normal 0.3-1.0 mg/dL LAB AST Aspartate Amino Transferase 11 Low 13-39 U/L LAB ALT Alanine Aminotransferase 7 Normal 7-52 U/L LAB ALP Alkaline Phosphatase 44 Normal 34-104 U/L LAB CRCLPHA Creatinine Clr C alc Pharmacy 119.09 Result Comment: PERFORMED BY : [place] [address] PATHOLOGIST SUPERINTENDENT SERVICE TRISTEN MOSELEY M.D. Performed By: #### ETOH, CBC , CMP #### [place] [id number] [facility] ETHYL ALCOHOL PROFILE Collected: 08/06/2024 9:53 PM Status: F Source: [facility] TYPE CODE TESTS RESULT OUT OF RANGE REFERENCE UNITS LAB ETHYALC Ethanol <10 mg/dL LAB ETHYLALC% Percent Ethanol Test not performed Result Comment: PERFORMED BY : [place] [address] PATHOLOGIST SUPERINTENDENT SERVICE TRISTEN MOSELEY M.D. Performed By: #### ETOH, CBC , CMP #### [address] HCG,QUANTITATIVE Collected: 9:53 PM Status: F Source: [facility] TYPE CODE TESTS RESULT OUT OF RANGE REFERENCE UNITS LAB HCGQNT HCG,Quantit ative 46367.00 m[iU]/mL Result Comment: Approximate Approximate hCG Gestational Age Range (mIU/ml) (weeks) 0.2-1 5-50 1-2 50-500 2-3 100-5,000 3-4 500-10,000 4-5 1,000-50,000 5-6 10,000-100,000 6-8 15,000-200,000 8-12 10,000-100,000 PERFORMED BY: [place] [address] PATHOLOGIST SUPERINTENDENT SERVICE TRISTEN MOSELEY M.D. Performed By: #### HCGQNT ## ## [place] [id number] [facility] LIPID PANEL Collected: 08/06/2024 9:53 PM Status: F Source: [facility] Order Comment: Comment use E R blood TYPE CODE TESTS RESULT OUT OF RANGE REFERENCE UNITS LAB CHOL Cholesterol 128 Low 140-200 mg/dL Result Comment: Chol less th an 200 mg/dl low risk Chol 201-239 mg/dl borderline risk Chol 240 mg/dl and greater high risk LAB HDL HDL Cholesterol 59 Normal 23-92 mg/dL Result Comment: HDL CHOL ATP -III CLASSIFICATION Cardiovascular Risk HDL > or equal to 60 mg/dL LOW HDL < 40 mg/dL HIGH LAB TRIG W REF Triglyceride w/Reflex 29 Normal 0-149 mg/dL Result Comment: TRIG ATP II I CLASSIFICATION TRIG less than 150 mg/dL Normal TRIG 150-199 mg/dL Borderline high TRIG 200-500 mg/dL High TRIG greater than 500 mg/dL Very high Standard traceable to the Center for Disease Conrtrol and Prevention (CDC) test method. LAB LDLC LDL Cholesterol,Calc ulated 63 Normal 0-100 mg/dL Result Comment: LDL ATP III CLASSIFICATION LDL less than 100 mg/dL Optimal LDL 100-129 mg/dL Near or above optimal LDL 130-159 mg/dL Borderline high LDL 160-189 mg/dL High LDL greater than 189 mg/dL Very high LAB VLDL VLDL CHOLESTEROL 5 mg/dL LAB CHLHDL Chol/HDL Ratio 2.2 <5.0 Performed By: #### TSH3 wRFL X, LIPID, [id number] #### [facility] [address] [place] [id number] [facility] THYROID STIM HORMONE W/RFLX Collected: 08/06/2024 9:53 PM Status: F Source: [facility] Order Comment: Comment use E R blood TYPE CODE TESTS RESULT OUT OF RANGE REFERENCE UNITS LAB TSH3 wRFLX Thyroid Stim Hormone w/Rflx 1.33 Normal 0.45-5.33 u[iU]/mL Performed By: #### TSH3 wRFL X, LIPID, [id number] #### [facility] [address] [place] [address] [facility] VITAMIN D 25 HYDROXY TOTAL Collected: 08/06/2024 9:53 PM Status: F Source: [facility] Order Comment: Comment use E R blood TYPE CODE TESTS RESULT OUT OF RANGE REFERENCE UNITS LAB [id number] Vitamin D 25 Hydroxy Total 9.7 Low 30-100 ng/mL Result Comment: VITAMIN D ST ATUS 25(OH)VITAMIN D RANGE (ng/mL) Deficient <20 Insufficient 20 to <30 Sufficient 30 to 100 Reference: Pam MF,Abelardo MUÑOZ, Cj GARZA, et al. Evaluation,treatment, and prevention of vitamin D deficiency; an Endocrine Society clinical practice guideline. JCEM. 2010; 96(7):1911-30. PERFORMED BY: [place] [address] PATHOLOGIST SUPERINTENDENT SERVICE TRISTEN MOSELEY M.D. Performed By: #### TSH3 wRFL X, LIPID, [id number] #### [address] ABDOMEN PELVIS W CON Observed: 2023 2:38 PM Status: COMPLETED Source: [facility] Main [place] [address] [place] [address] CT Scan Report Signed Patient: Lisha Valentin MR#: [id number] 1238 : 1990 Acct:[id number] Age/Sex: 34 / F ADM Date: 07/14/24 Loc: ER Room: Type: [facility] ER Attending Dr: Copies to: DO [...] Uterus is grossly unremarkable. No adnexal mass.] Peritoneum/Retroperitoneum:Small amount of free fluid seen within the [...] seen. Impression dictated by: Leroy Mancera Jr., DJorgeOJorge07/14/2024 2:43 PM Dictation Location: [place] [address] Transcribed By: PWS 07/14/24 1443 Dictated By: Leroy Mancera Jr, DO 07/14/24 1438 Signed By: <Electronically signed by Leroy Mancera Jr, DO in OV> 07/14/24 1443 COVID-19 / FLU A/B / RSV PCR Observed: 1 1:25 PM Status: F Source: [facility] COVID-19 Cepheid Result Negative for SARS-CoV-2 RNA [...] or Cepheid Disclaimer revoked sooner. PERFORMED BY: [place] [address] PATHOLOGIST SUPERINTENDENT SERVICE CLAU ZAVALA M.D. Performed By: #### COVID19 F JESS RSV, CEPHEID NEG #### [place] [id number] [facility] CEPHEID COVID PCR NEGATIVE Collected: 1 1:25 PM Status: F Source: [facility] TYPE CODE TESTS RESULT OUT OF RANGE REFERENCE UNITS LAB CEPHEID NEG Cepheid COVID PCR Negative Negative Negative Result Comment: This is a du plicate Cepheid Xpert Xpress CoV-2/Flu/RSV Plus RNA by RT-PCR result to be used for statistical tracking purpose only. PERFORMED BY: [place] [id number] PATHOLOGIST SUPERINTENDENT SERVICE CLAU ZAVALA M.D. Performed By: #### COVID19 F JESS RSV, CEPHEID NEG #### [place] [id number] [facility] COMPLETE BLOOD COUNT AUTO DIFF Collected: 07/14/2024 1:21 PM Status: F Source: [facility] TYPE CODE TESTS RESULT OUT OF RANGE REFERENCE UNITS LAB WBC White Blood Count 4.3 Normal 3.8-11.6 10*3/uL LAB UNWBC Uncorrected WBC 4.3 Normal 3.8-11.6 10*3/uL LAB RBC Red Blood Count 4.57 Normal 3.60-5.00 LAB HGB Hemoglobin 10.8 Low 11.8-15.4 g/dL LAB HCT Hematocrit 33.4 Low 34.0-46.4 % LAB MCV Mean Corpuscular Volume 73.1 Low 80-100 fL LAB MCH Mean Corpuscular Hemoglobin 23.5 Low 24.7-34.3 pg LAB MCHC Mean Corpuscular HGB Conc 32.2 Normal 32.0-35.0 g/dL LAB RDW Red Cell Distribution Width 13.7 Normal 11.9-15.3 % LAB PLT Platelet Count 168 Normal 150-450 10*3/uL LAB MPV Mean Platelet Volume 9.1 Normal 6.3-10.7 fL LAB MDW Monocyte Distribution Width 20.43 High 0.00-20.00 % Result Comment: For adults i n ED, MDW > 20.0 may be associated with a higher risk of sepsis during the first 12 hrs of hospital admission LAB NE% Neutrophils % (Auto) 63.5 . % LAB LY% Lymphocytes % (Auto) 23.2 . % LAB MO% Monocytes % (Auto) 12.3 . % LAB EO% Eosinophils % (Auto) 0.6 . % LAB BA% Basophils % (Auto) 0.4 . % LAB NRBC% NRBC% 0.1 Normal 0-0.5 /100{WBC } LAB NE# Neutrophils # (Auto) 2.7 Normal 1.8-7.7 10*3/uL LAB LY# Lymphocytes # (Auto) 1.0 Normal 1.00-4.8 10*3/uL LAB MO# Monocytes # (Auto) 0.5 Normal 0.0-0.8 10*3/uL LAB EO# Eosinophils # (Auto) 0.0 Normal 0.0-0.45 10*3/uL LAB BA# Basophils # (Auto) 0.0 Normal 0.0-0.2 10*3/uL Result Comment: PERFORMED BY : [place] [address] PATHOLOGIST SUPERINTENDENT SERVICE CLAU ZAVALA M.D. Performed By: #### CBC, BMP, HEPATIC, LIPASE #### [address] HEPATIC PANEL Collected: 07/14/2024 1:21 PM Status: F Source: [facility] TYPE CODE TESTS RESULT OUT OF RANGE REFERENCE UNITS LAB TP Total Protein 7.2 Normal 6.4-8.9 g/dL LAB ALB Albumin Level 4.1 Normal 3.5-5.7 g/dL LAB GLOB Globulin 3.1 g/dL LAB AGRATIO Albumin/Globulin Ratio 1.3 LAB BILIT Bilirubin,Total 0.4 Normal 0.3-1.0 mg/dL LAB BILID Bilirubin,Direct 0.10 Normal 0.03-0.18 mg/dL LAB BILII Bilirubin,Indirect 0.3 mg/dL LAB AST Aspartate Amino Transferase 14 Normal 13-39 U/L LAB ALT Alanine Aminotransferase 9 Normal 7-52 U/L LAB ALP Alkaline Phosphatase 48 Normal 34-104 U/L Performed By: #### CBC, BMP, HEPATIC, LIPASE #### [facility] [address] [place] [id number] [facility] BASIC METABOLIC PANEL Collected: 07/14/2024 1:21 PM Status: F Source: [facility] TYPE CODE TESTS RESULT OUT OF RANGE REFERENCE UNITS LAB GLU Glucose 88 Normal 70-100 mg/dL Result Comment: Random Gluco se Reference Range is dependent on time and content of last meal. Glucose of more than 200 mg/dL in a nonstressed, ambulatory subject supports the diagnosis of Diabetes Mellitus. ADA recommended reference range LAB BUN Blood Urea Nitrogen 9 Normal 7-25 mg/dL LAB CREATT Creatinine 0.71 Normal 0.60-1.20 mg/dL LAB GFReNR Estimated GFR > 60.0 LAB NA Sodium 138 Normal 136-145 mmol/L LAB K Potassium 3.3 Low 3.5-5.1 mmol/L LAB CL Chloride 105 Normal 98-107 mmol/L LAB CO2 Carbon Dioxide 25.2 Normal 21.0-31.0 mmol/L LAB GAP Anion Gap 11.1 Normal 6.0-15.0 LAB CA Calcium 8.9 Normal 8.6-10.3 mg/dL LAB CRCLPHA Creatinine Clr Calc Pharmacy 107.14 Performed By: #### CBC, BMP, HEPATIC, LIPASE #### [facility] [address] [place] [id number] [facility] LIPASE Collected: 1:21 PM Status: F Source: [facility] TYPE CODE TESTS RESULT OUT OF RANGE REFERENCE UNITS LAB LIPASE Lipase 45.0 Normal 11.0-82.0 U/L Result Comment: PERFORMED BY : [place] [address] PATHOLOGIST SUPERINTENDENT SERVICE CLAU ZAVALA M.D. Performed By: #### CBC, BMP, HEPATIC, LIPASE #### [facility] [address] [place] [address] [facility] DIPSTICK AND MICROSCOPIC Collected: 12:22 PM Status: F Source: [facility] Order Comment: Name Collecti on Type:: Clean-Voided Midstream TYPE CODE TESTS RESULT OUT OF RANGE REFERENCE UNITS LAB UCOL Color,Urine Yellow Yellow LAB UAPP Appearance,Uri ne Clear Clear LAB USG Specificy Springer,Urine 1.030 Normal 1.001-1.030 LAB UPH pH,Urine 6.0 Normal 5.0-9.0 LAB ULE Leukocyte Esterase,Urine Negative Negative LAB UNIT Nitrite,Urine Negative Negative LAB UPRO Protein,Urine 20 High Negative mg/dL LAB UGL Glucose,Urine (UA) Normal Normal LAB UKET Ketones,Urine 2+ High Negative LAB UURO Urobilinogen,U rine 3 High Normal mg/dL LAB UBIL Bilirubin,Urin e Negative Negative LAB UBLD Occult Blood,Urine 1+ High Negative LAB URBC RBC,Urine 20-49 High 0-4 LAB UWBC WBC,Urine 5-9 High 0-4 LAB USQEPI Squamous Epithelial Cell,Urine 5-9 High 0-2 LAB UBACT Bacteria,Urine Rare None Seen LAB UHYALC Hyaline Casts,Urine None 0-8 LAB MUCUS Mucus,Urine 2+ Abnormal Alert Performed By: #### ADDONUAPL US, UHCG #### [facility] [address] [place] [address] [place] HCG,URINE Collected: 12:22 PM Status: F Source: [facility] Order Comment: Name Collecti on Type:: Clean-Voided Midstream TYPE CODE TESTS RESULT OUT OF RANGE REFERENCE UNITS LAB UHCGQ HCG Qualitative,U rine Negative Result Comment: PERFORMED BY : [address] [place] [address] PATHOLOGIST SUPERINTENDENT SERVICE CLAU ZAVALA M.D. Performed By: #### ADDONUAPL , [facility] #### [facility] [address] ECG 12 LEAD ECG Observed: 07/14/2024 12:20 PM Status: COMPLETED Source: [facility] Main [place] [address] [place] [address] Electrocardiograph Report Signed Patient: Lisha Valentin MR#: [id number] 1238 : 1990 Acct:[id number] Age/Sex: 34 / F ADM Date: 07/14/24 Loc: ER Room: Type: [facility] ER Attending Dr: Ordering Provider: [...] ms Normal sinus rhythm Confirmed by Glenroy Hyatt DO ([id number]) on 07/14/2024 8:07:49 PM Referred By: Electronically Signed By: Glenroy Hyatt DO Transcribed By: MUS Signed By Glenroy Hyatt DO 2007 VAGINITIS PANEL PCR Observed: 02/21/2024 10:30 AM Status: COMPLETED Source: [facility] BACT. VAGINOSIS DNA Not detected (qualifier value) Qualitative results are reported based on detection and quantitation of targeted organism markers which include: Lactobacillus spp. (L. crispatus and L. jensenii), Gardnerella vaginalis, Atopobium vaginae, Bacterial Vaginosis Associated Bacteria-2 (BVAB-2) and Megasphaera-1 ARTI SPECIES DNA Not detected (qualifier value) Arti species not detected include: C. albicans, C. tropicalis, C. parapsilosis or C. dubliniensis ARTI KRUSEI DNA Not detected (qualifier value) No Arti krusei detected ARTI GLABRATA DNA Not detected (qualifier value) No Arti glabrata detected TRICHOMONAS VAG DNA Not detected (qualifier value) No Trichomonas vaginalis detected NOTE BD MAX Vaginal Panel has not been evaluated for patients under 18 years old. Results for these patients should be reviewed and assessed in accordance with clinical presentation to determine patient diagnosis. Performed By: #### VPPCR ### # [facility] ([id number]) [address] [place] [address], [address] [place] [address] CHLAMYDIA/GC BY PCR Observed: 02/21/2024 10:30 AM Status: C Source: [facility] SPECIMEN SOURCE VAGINAL Corrected on 02/20 AT [...] results are dependent on adequate specimen collection. Performed By: #### CGS #### [facility] ([id number]) [address] [place] [address], [address] [place] [address] ALLERGIES DATE TYPE / CODE NAME / CODE REACTION SEVERITY SOURCE 02/01/2025 Drug Allergy/4160 69523(SNOMED CT) labetalol/[id number] 9(RXNORM) Difficulty Breathing Unknown [facility] 02/01/2025 Drug Allergy/4160 32785(SNOMED CT) methimazole/N526386 139(RXNORM) Anaphylaxis Unknown [facility] 02/01/2025 Drug Allergy/4160 70784(SNOMED CT) cefdinir/[id number] (RXNORM) Unknown Reaction Unknown [facility] 10/10/2024 DRUG INGREDI/4195 78654(SNOMED CT) CEFDINIR [facility] 10/10/2024 DRUG INGREDI/4195 65229(SNOMED CT) LABETALOL HCL [facility] 10/10/2024 DRUG INGREDI/4195 63682(SNOMED CT) METHIMAZOLE [facility] 02/21/2024 DRUG INGREDI/4195 63728(SNOMED CT) LABETALOL [facility] ENCOUNTERS ADMIT/DISCHARGE ACCOUNT NUMBER ADMITTING ENCOUNTER CLASS LOCATION SOURCE 02/01/2025/ 025 [id number] [facility] 01/28/2025/ 025 [id number] Priscilla Albarran [facility] 01/27/2025/ 025 [id number] Ambulatory Building:[facility] 01/27/2025/ 025 [id number] Ambulatory Building:NOM S [facility] 01/14/2025/ 025 [id number] Ambulatory Building:NOM S [facility] 01/13/2025/ 025 [id number] Ambulatory Building:[facility] 12/30/2024/ 025 [id number] Ambulatory Building:NOM S [facility] 12/16/2024/ 025 [id number] Ambulatory Building:[facility] 12/12/2024/ 025 [id number] Ambulatory Buildin 4 [facility] 12/02/2024/ 025 [id number] Ambulatory Building:NOM S [facility] 11/21/2024/ 025 [id number] Ambulatory Buildin 4 [facility] 11/21/2024/ 025 [id number] Ambulatory Building:PTH _MFMUS [facility] 11/18/2024/ 025 [id number] Ambulatory Building:NOM S [facility] 11/10/2024 [id number] Kelly Hough [facility] 11/04/2024/ 025 [id number] Ambulatory Building:NOM S [facility] 10/14/2024/ 025 [id number] Ambulatory Building:NOM S [facility] EP[facility] 09/11/2024/ 024 [id number] Maria Pendleton [facility] 09/11/2024/ 024 [id number] Ambulatory Building:NOM S [facility] EPIC 08/26/2024/ 024 [id number] Ambulatory Building:NOM S [facility] EPIC 08/06/2024/ 024 [id number] Julián Naqvi Inpatient Encounter [facility] nSRoom: [id number]: 1 [facility] 08/06/2024 [id number] Julián Naqvi Ambulatory [facility] ng:BHCREDIBL E [facility] 07/14/2024/ 024 [id number] Sarah Dodd Emergency [facility] ng:ER [facility] 02/21/2024/ 024 [id number] Emergency Building:PFM _EDRoom: 13Bed: 13 [facility] 02/19/2024/ 024 [id number] Ambulatory Building:NOM S [facility] OB [facility] EPIC PAYERS ENCOUNTER GUARANTOR PAYER SUBSCRIBER SOURCE 02/01/2025 Lisha Valent[address] [place] [address]Fql: (HP) Primary Insurance:UMRPolicy Number: [id number] Date:3197-73-32[address] [address]SP: Lisha GutierrezB: [id number] [place] [address]Cfn: (HP) [facility] 02/01/2025 Secondary Insurance:[facility] MedicaidPolicy Number: [id number] Date:5283-68-91CQ [address] [place] [address]OZ: Lisha Rosa BrendaB: [id number] [place] [address]Wpi: (HP) [facility] 02/01/2025 Tertiary Insuran ce:Self PayPolicy Number: Effective Date:2025-02-01 [facility]/28/2025 Lisha Rosa [id number], [place] [address]Suc: (HP) Primary Insurance:UMRPolicy Number: [id number] Date:1125-24-45IO [address] [address]iv[place] [address]PQ: Lisha Rosa BrendaB: [id number], [place] [address]Mjs: (HP) [facility] 01/28/2025 Secondary Insurance:[facility] MedicaidPolicy Number: [id number] Date:0814-05-48YV [address] [place] [address]BC: Lisha Rosa BrendaB: [id number] [address]Sut: (HP) [facility] 01/28/2025 Tertiary Insuran ce:Self PayPolicy Number: Effective Date:2025-01-09 [facility] 01/27/2025 LISHA Rosa BRENDAB: [address], [place] [address]Kdh: (HP) Primary Insurance:[employer] BENEFITS/WHIRLPOOLPolic y Number: [id number] Date:2022-09-17 LISHA Moe BRENDAB: [id number], [place] [address]Tpz: (HP) () [facility] 01/27/2025 Secondary Insurance:[employer] [place] MEDICAIDPolicy Number: [id number] Date:2024-09-17 LISHA Rosa BRENDAB: [id number] [place] [address]Rmu: (HP) () [facility] 01/27/2025 LISHA Moe BRENDAB: [address] [place] [address]Lse: (HP) Primary Insurance:[employer] MEDICAID [place] Number: [id number] Date:2024-09-17 LISHA Moe BRENDAB: [id number] [address] [place] [address] [facility] 01/27/2025 Secondary Insurance:HEALTHSCOPEPo licy Number: [id number] Date:2024-09-17 LISHA GUTIERREZB: [id number] [address] [place] [address] [facility] EPIC 01/14/2025 LISHA GUTIERREZB: [id number] [address], [place] [address]Gsi: (HP) Primary Insurance:[employer] MEDICAID [place] Number: [id number] Date:2024-09-17 LISHA GUTIERREZB: [id number] [address], [place] [address] [facility] EPIC 01/14/2025 Secondary Insurance:HEALTHSCOPEPo licy Number: [id number] Date:2024-09-17 LISHA GUTIERREZB: [id number] [address] [address] [facility] EPIC 01/13/2025 LISHA GUTIERREZB: [id number] [address], [place] [address]Cmy: (HP) Primary Insurance:[employer]ALTH[employer]OPE BENEFITS/WHIRLPOOLPolic y Number: [id number] Date:2022-09-17 LISHA Moe BRENDAB: [id number] [address] [address]Vmy: (HP) (WP) [facility] 01/13/2025 Secondary Insurance:[employer] [place] MEDICAIDPolicy Number: [id number] Date:2024-09-17 LISHA Moe BRENDAB: [id number] [place] [address]Cxj: (HP) () [facility] 12/30/2024 LISHA GUTIERREZB: [address] [place] [address]Ssc: (HP) Primary Insurance:[employer] MEDICAID [place] Number: [id number] Date:2024-09-17 LISHA Moe BRENDAB: [id number] [place] [address] [facility] 12/30/2024 Secondary Insurance:HEALTHSCOPEPo licy Number: [id number] Date:2024-09-17 LISHA Moe BRENDAB: [id number] [place] [address] [facility] EPIC 12/16/2024 LISHA Moe BRENDAB: [id number] [address] [address]Stp: (HP) Primary Insurance:HEALTH[employer]OPE BENEFITS/WHIRLPOOLPolic y Number: [id number] Date:2022-09-17 LISHA Moe BRENDAB: [id number] [address] [place] [address]Gul: (HP) (WP) [facility] 12/16/2024 [facility] MEDICAIDPolicy Number: [id number] Date:2024-09-17 LISHA GUTIERREZB: [id number] [address] [address]Sgd: (HP) (WP) [facility] 12/12/2024 LISHA GUTIERREZB: [address], [place] [address]Nth: (HP) Primary Insurance:HEALTH[employer]OPE BENEFITS/WHIRLPOOLPolic y Number: [id number] Date:2022-09-17 LISHA GUTIERREZB: [id number] [address], [place] [address]Nno: (HP) (WP) [facility] 12/12/2024 Secondary Insurance:[employer] [place] MEDICAIDPolicy Number: [id number] Date:2024-09-17 LISHA MEADOWS: [id number] [address], [place] [address]Byx: (HP) (WP) [facility] 12/02/2024 LISHA GUTIERREZB: [address], [place] [address]Wgx: (HP) Primary Insurance:[employer] MEDICAID [place] Number: [id number] Date:2024-10-29 LISHA GUTIERREZB: [id number] [address] [place] [address] [facility] 12/02/2024 Secondary Insurance:HEALTHSCOPEPo licy Number: [id number] Date:2024-09-17 LISHA MEADOWS: [id number] [address] [address] [facility] 11/21/2024 LISHA Rosa BRENDAB: [id number] [address] [address]Yjc: (HP) Primary Insurance:HEALTH[employer]OPE BENEFITS/WHIRLPOOLPolic y Number: [id number] Date:2022-09-17 LISHA Rosa BRENDAB: [id number] [address], [place] [address]Qae: (HP) (WP) [facility] 11/21/2024 Secondary Insurance:[employer] [place] MEDICAIDPolicy Number: [id number] Date:2024-09-17 LISHA Rosa BRENDAB: [id number] [place] [address]Tru: (HP) (WP) [facility] 11/21/2024 LISHA Rosa BRENDAB: [address], [place] [address]Sbl: (HP) Primary Insurance:HEALTH[employer]OPE BENEFITS/WHIRLPOOLPolic y Number: [id number] Date:2022-09-17 LISHA Rosa BRENDAB: [id number] [address], [place] [address]Tee: (HP) (WP) [facility] 11/21/2024 Secondary Insurance:[employer] [place] MEDICAIDPolicy Number: [id number] Date:2024-09-17 LISHA Rosa BRENDAB: [id number] [place] [place] [place] [address]Iwl: (HP) (WP) [facility] 11/18/2024 LISHA GUTIERREZB: [id number] [address] [address]Kva: (HP) Primary Insurance:[employer] MEDICAID [place] Number: [id number] Date:2024-10-29 LISHA GUTIERREZB: [id number] [address] [place] [address] [facility] EPIC 11/18/2024 Secondary Insurance:HEALTHSCOPEPo licy Number: [id number] Date:2024-09-17 LISHA GUTIERREZB: [id number] [address] [facility] [address] [facility] EPIC 11/10/2024 Lisha Valentin[address], [place] [address]Zen: (HP) [facility]: [id number] Date:2022-09-27 Tisha DunbarB: [id number] [place] [address]Tlk: (HP) [facility] 11/10/2024 Secondary Insurance:Self PayPolicy Number: Effective Date:2023-10-09 [facility] LISHA GUTIERREZB: [id number] [address], [place] [address]Vhm: (HP) Primary Insurance:[employer] [place] Number: [id number] Date:2024-10-29 LISHA GUTIERREZB: [id number] [address], [place] [address] [facility] EPIC 11/04/2024 Secondary Insurance:HEALTHSCOPEPo licy Number: [id number] Date:2024-09-17 LISHA GUTIERREZB: [id number] [address] [address] [facility] EPIC 10/14/2024 LISHA VALENTINB: [id number] [address], [place] [address]Nyt: (HP) Primary Insurance:UNITED HEALTHCAREPolicy Number: [id number] Date:2022-09-17 DEABEATRICE CHILDSDOB: [id number] [place] [address] [facility] EPIC 09/11/2024 Lisha Moe [id number], [place] [address]Wtu: (HP) Primary Insurance:Self PayPolicy Number: Effective Date:2024-09-11 [facility]2024 LISHA VALENTINDOB: [id number] [address] [address]Rfl: (HP) Primary Insurance:UNITED HEALTHCAREPolicy Number: [id number] Date:2022-09-17 DEABEATRICE CHILDSDOB: [id number] [place] [address] [facility] EPIC 08/26/2024 LIHSA Moe BRENDAB: [id number] [address], [place] [address]Axw: (HP) Primary Insurance:UNITED HEALTHCAREPolicy Number: [id number] Date:2022-09-17 TISHA DUNBARB: [id number] [place] [address] [facility] EPIC 08/06/2024 Lisha Moe [id number], [place] [address]Qvl: (HP) Primary Insurance:United HealthcarePolicy Number: [id number] Date:2024-08-06 Tisha ChildsDOB: [id number], [place] [address]Ynz: (HP) [facility] 08/06/2024 Secondary Insurance:Self PayPolicy Number: Effective Date:2024-08-06 NOT GIVENUNK [facility] 08/06/2024 Lisha Moe [id number], [place] [address]Grs: (HP) Primary Insurance:Self PayPolicy Number: Effective Date:2024-08-06 [facility] 07/14/2024 Lisha Moe [id number], [place] [address]Pfe: (HP) Primary Insurance:United HealthcarePolicy Number: [id number] Date:2024-07-14 Deabeatrice DunbarB: [id number], [place] [address]Xwz: (HP) [facility] 07/14/2024 Secondary Insurance:Self PayPolicy Number: Effective Date:2024-07-14 [facility] 02/21/2024 LISHA GUTIERREZB: [id number] [address], [place] [address]Pju: (HP) Primary Insurance:UNITED HEALTHCARE CHOICE PLUSPolicy Number: [id number] Date:2023-09-17 TISHA DUNBARB: [id number] [address], [place] [address]Qyd: (HP) [facility] 02/19/2024 LISHA GUTIERREZB: [id number] [address], [place] [address]Dbx: (HP) Primary Insurance:UNITED HEALTHCAREPolicy Number: [id number] Date:2022-09-17 TISHA DUNBARB: [id number] [place] [address] [facility] EPIC
--- OUTSIDE RECORDS SUMMARY | 2025-02-09 07:56 | XMS_ITS ---
Author Organization [facility] Source Produ ction (ClinicalSummary Clone) Address Unknown Care Team Providers Care Dumper Bailer Operator Name Role Phone Unavailable Primary Care Physician Unavailab le Results * [UNITY] ANEUPLOIDY NIPT Performed by: [employer] Component Value Range Date Fraction 11.8% 11/27/2024 09 :00 pm UTC Sex Chromosome Aneuploidy NOT DETECTED 09:00 pm UTC Monosomy X LOW RISK <1 in 10,000 2024 09:00 pm UTC Trisomy 13 LOW RISK <1 in 10,000 2024 09:00 pm UTC Trisomy 18 LOW RISK <1 in 10,000 2024 09:00 pm UTC Trisomy 21 LOW RISK <1 in 10,000 2024 09:00 pm UTC Sex MALE 11/27/2024 09:0 0 pm UTC Gestation CANADA 11/28/19 25 09:00 pm UTC For detailed report, see PDF See PDF 11/27/2024 09:00 pm UTC 11/27/2024 09:0 0 pm UTC Social History Observation Value Start Date End Date
--- OUTSIDE RECORDS SUMMARY | 2025-02-09 07:56 | XMS_ITS | Encounter Summary ---
Author Organization [facility] Address [id number] [address] [place] [address] Care Team Providers Care Carpet Installer Name Role Phone No Pcp, No Pcp Primary Care Provider Unavailabl e Encounter Details Date Type Department Care Team (Late Contact Info) Description 12/09/2024 Orders Only Maternal- Medicine at [facility] [address] [place] [phone] Natalie Díaz, RN Choroid plexus cyst of fetus affecting care of mother, antepartum, fetus 1 Social History Tobacco Use Types Packs/Day Years [...] on file documented as of this encounter Plan of Treatment Upcoming Encounters Date Type Department Care Team (Late Contact Info) Description 02/26/2025 2:15 PM EDT Appointment Maternal Medicine [place] [address] [place] [address] documented as of this encounter Procedures Procedure Name Priority Date/Time Associated Diagnosis Comments UNLISTED LAB TEST Routine 11/21/2024 Choroid plexus cyst of fetus affecting care of mother, antepartum, fetus 1 documented in this encounter Results * Unlisted Lab Test (11/21/2024) 11/21/2024 Torey Barnett MD LAB BLOOD ORDERABLES Final Re sult SUNQUEST documented in this encounter Visit Diagnoses Diagnosis Choroid plexus cyst of fetus affecting care of mother, antepartum, fetus 1 documented in this encounter Care Teams Carpet Installer Relationship Specialty Start Date End Date No Pcp, [place] [address] PCP - General Family Medicine 02/21/24 documented as of this encounter
--- OUTSIDE RECORDS SUMMARY | 2025-02-09 07:56 | XMS_ITS | Encounter Summary ---
Author Organization [facility] Address [id number] [address] [place] [address] Care Team Providers Care Rasper Machine Operator Name Role Phone No Pcp, No Pcp Primary Care Provider Unavailabl e Encounter Details Date Type Department Care Team (Late Contact Info) Description 10/10/2024 Abstract Maternal- Medicine at [facility] [address] [place] [address] Torey Barnett MD [address] [place] [address] Social History Tobacco Use Types Packs/Day Years [...] got money to buy more. Never True 02/21/2024 Within the past 12 months th e food we bought just didn't last and we didn't have money to get more. Never True 02/21/2024 Purpose - Life Answer Date Recorded Purpose [...] 02/26/2025 2:15 PM EDT Appointment Maternal Medicine [place] [address] [place] [address] documented as of this encounter Procedures Procedure Name Priority Date/Time Associated Diagnosis Comments RUBELLA IGG IMMUNE STATUS Routine 09/11/2024 SYPHILIS TOTAL(UNKNOWN SYPHILIS STATUS) Routine 09/11/2024 documented in this encounter Results * Rubella IGG immune status (09/11/2024) Rubella immune IgG 0.96 (immune) MANUALLY TRANSCRIBED RESULTS us Not In System Ref Prov LAB BLOOD ORDERABLES Larissa l Result Performing Organization Address City/[facility] Co de Phone Number MANUALLY TRANSCRIBED RESULTS * Syphilis Total(Unknown Syphilis Status) (09/11/2024) Syphilis Total non- reactive MANUALLY TRANSCRIBED RESULTS us Not In System Ref Prov LAB BLOOD ORDERABLES Larissa l Result Performing Organization Address City/[facility]/ZIP Co de Phone Number MANUALLY TRANSCRIBED RESULTS documented in this encounter Visit Diagnoses Not on filedocumented in this encounter Care Teams Rasper Machine Operator Relationship Specialty Start Date End Date No Pcp[place] [address] PCP - General Family Medicine 02/21/24 documented as of this encounter
--- OUTSIDE RECORDS SUMMARY | 2025-02-09 07:56 | XMS_ITS | Encounter Summary ---
Author Organization [facility] Address [id number] [address] [place] [address] Care Team Providers Care Dinner Cook Name Role Phone No Pcp, No Pcp Primary Care Provider Unavailabl e Encounter Details Date Type Department Care Team (Late Contact Info) Description 12/01/2024 Orders Only Maternal- Medicine at [facility] [address] [place] [phone] Natalie Díaz, RN Choroid plexus cyst of [...] Maternal Medicine [place] [address] [place] [address] documented as of this encounter Procedures Procedure Name Priority Date/Time Associated Diagnosis Comments UNLISTED LAB TEST Routine 11/21/2024 Choroid plexus cyst of fetus affecting care of mother, antepartum, fetus 1 documented in this encounter Results * Unlisted Lab Test (11/21/2024) 11/21/2024 Torey Barnett MD LAB BLOOD ORDERABLES Final Re sult MANUALLY TRANSCRIBED RESULTS documented in this encounter Visit Diagnoses Diagnosis Choroid plexus cyst of fetus affecting care of mother, antepartum, fetus 1 documented in this encounter Care Teams Dinner Cook Relationship Specialty Start Date End Date No Pcp, [place] [address] PCP - General Family Medicine 02/21/24 documented as of this encounter
--- OUTSIDE RECORDS SUMMARY | 2025-02-09 07:56 | XMS_ITS | Patient Health Record ---
Author Organization [facility] es Address [address] [place] [address] Care Team Providers Care Engine Cowling Installer Name Role Phone Yudelka Lopez Primary Care Provider Dr. Leroy Salazar Unavailable [phone] Allergies Allergen (clinical drug ingredient) Drug/Non Drug Allergy documented on EMR Reaction Allergy Type Onset Date Status labetalol Labetalol HCl shortness of breath Drug Allergy Active Results Component Value Reference Range Notes BioFire Detected (Not yet re viewed by provider) Interpretation: Performing Lab:, [facility], [address] [facility] Notes/Report: BioFire Detected Detected Not Detecte This is a duplicate RP2.1 COVID (PCR) result to be used for statistical tracking purpose only. Dipstick and Microscopic (No t yet reviewed by provider) Interpretation: Performing Lab:, [facility], [address] [facility] Notes/Report: Name Collection Type:: Clean-Voided Midstream Color,Urine Light-Yellow Yellow Appearance,Urine Clear Clear Specificy [place],Urine 1.011 1.001-1.030 pH,Urine 6.5 5.0-9.0 Leukocyte Esterase,Urine 2+ Negative Nitrite,Urine Negative Negative Protein,Urine Negative Negative Glucose,Urine (UA) Normal Normal Ketones,Urine 3+ Negative Urobilinogen,Urine Normal Normal Bilirubin,Urine Negative Negative Occult Blood,Urine Negative Negative RBC,Urine 1-2 0-4 [HPF] WBC,Urine 1-2 0-4 [HPF] Squamous Epithelial Cell,Urine 5-9 0-2 [HPF] Bacteria,Urine 1+ None Seen Hyaline Casts,Urine None 0-8 Mucus,Urine Rare Respiratory (Upper) Panel, P CR (Not yet reviewed by provider) Interpretation: Performing Lab:, [facility], [address] Notes/Report: Adenovirus Not detected Bordetella parapertussis Not detected [...] Not detected Resp. Syncytial Virus Not detected COVID-19 Detected/Not Detected Detected COVID19 Blank Space ---- ------ COVID19 Det Results Detected results josue l only be called to COVID19 Det Results Providers for Inpatients. COVID19 Blank Space ---- ------ Blank Space ---- ------ FLUA TEST INCLUDES Influenza A tests fo r the following clinically FLUA TEST INCLUDES significant subtypes: FLUA TEST INCLUDES - Influenza A FLUA TEST INCLUDES - Influenza A H1 FLUA TEST INCLUDES - Influenza A H1 2008 FLUA TEST INCLUDES - Influenza A H3 Blank Space ---- ------ Quick Strep (Not yet reviewe d by provider) Interpretation: Performing Lab:, [facility], [address] [place] Notes/Report: Streptococcus pyogenes Ag [Presence] in Throat by Rapid immunoassay Negative for Group A Strep Antigen Note 1 ---- NOTE 2 Results are those of a screening test. NOTE 3 If clinically indica delmer please order a culture. NOTE 4 ---- NOTE 5 Reference range = Negative Complete Blood Count Auto Di ff (Not yet reviewed by provider) Interpretation: Performing Lab:, [facility], [address] [place] Notes/Report: For adults in ED, MDW > 20.0 may be associated with a higher risk of sepsis during the first 12 hrs of hospital admission White Blood Count 6.5 3.8-11.6 10*3/uL Uncorrected WBC 6.5 3.8-11.6 10*3/uL Red Blood Count 3.94 3.60-5.00 10*6/uL Hemoglobin 9.5 11.8-15.4 g/dL Hematocrit 29.7 34.0-46.4 % Mean Corpuscular Volume 75.3 80-100 fL Mean Corpuscular Hemoglobin 24.1 24.7-34.3 pg Mean Corpuscular HGB Conc 32.1 32.0-35.0 g/dL Red Cell Distribution Width 14.2 11.9-15.3 % Platelet Count 143 150-450 10*3/uL Mean Platelet Volume 9.3 6.3-10.7 fL Neutrophils % (Auto) 73.9 . % Lymphocytes % (Auto) 14.8 . % Monocytes % (Auto) 9.9 . % Eosinophils % (Auto) 1.1 . % Basophils % (Auto) 0.3 . % NRBC% 0.1 0-0.5 /100{WBC} Neutrophils # (Auto) 4.8 1.8-7.7 10*3/uL Lymphocytes # (Auto) 1.0 1.00-4.8 10*3/uL Monocytes # (Auto) 0.7 0.0-0.8 10*3/uL Eosinophils # (Auto) 0.1 0.0-0.45 10*3/uL Basophils # (Auto) 0.0 0.0-0.2 10*3/uL Monocyte Distribution Width 20.57 0.00-20.00 % Basic Metabolic Panel (Not y et reviewed by provider) Interpretation: Performing Lab:, [facility], [address] Notes/Report: Glucose 73 70-100 mg/dL Random Glucose Reference Range is dependent on time and content of last meal. Glucose of more than 200 mg/dL in a nonstressed, ambulatory subject supports the diagnosis of Diabetes Mellitus. ADA recommended reference range Blood Urea Nitrogen 4 7-25 mg/dL Sodium 136 136-145 mmol/L Potassium 3.2 3.5-5.1 mmol/L Chloride 107 98-107 mmol/L Carbon Dioxide 21.3 21.0-31.0 mmol/L Calcium 7.9 8.6-10.3 mg/dL Creatinine 0.51 0.60-1.20 mg/dL Estimated GFR >60.0 Anion Gap 10.9 6.0-15.0 meq/L Creatinine Clr Calc Pharmacy 164.96 Ethyl Alcohol Profile Reviewed date:08/07/2024 07:53:16 AM Interpretation: Performing Lab:, [facility], [address] Notes/Report: Ethanol <10 Percent Ethanol TNP Complete Blood Count Auto Di ff Reviewed date:08/07/2024 07:53:16 AM Interpretation: Performing Lab:, [facility], [address] Notes/Report: White Blood Count 7.9 3.8-11.6 10*3/uL Uncorrected WBC 7.9 3.8-11.6 10*3/uL Red Blood Count 4.55 3.60-5.00 10*6/uL Hemoglobin 10.5 11.8-15.4 g/dL Hematocrit 33.2 34.0-46.4 % Mean Corpuscular Volume 73.0 80-100 fL Mean Corpuscular Hemoglobin 23.0 24.7-34.3 pg Mean Corpuscular HGB Conc 31.5 32.0-35.0 g/dL Red Cell Distribution Width 14.0 11.9-15.3 % Platelet Count 220 150-450 10*3/uL Mean Platelet Volume 9.3 6.3-10.7 fL Neutrophils % (Auto) 79.0 . % Lymphocytes % (Auto) 12.7 . % Monocytes % (Auto) 6.8 . % Eosinophils % (Auto) 0.8 . % Basophils % (Auto) 0.7 . % NRBC% 0.0 0-0.5 /100{WBC} Neutrophils # (Auto) 6.2 1.8-7.7 10*3/uL Lymphocytes # (Auto) 1.0 1.00-4.8 10*3/uL Monocytes # (Auto) 0.5 0.0-0.8 10*3/uL Eosinophils # (Auto) 0.1 0.0-0.45 10*3/uL Basophils # (Auto) 0.1 0.0-0.2 10*3/uL Monocyte Distribution Width 17.93 0.00-20.00 % HCG,Quantitative Reviewed date:08/07/2024 07:53:16 AM Interpretation: Performing Lab:, [facility], [address] [facility] Notes/Report: Approximate Approximate hCG Gestational Age Range (mIU/ml) (weeks) 0.2-1 5-50 1-2 50-500 2-3 100-5,000 3-4 500-10,000 4-5 1,000-50,000 5-6 10,000-100,000 6-8 15,000-200,000 8-12 10,000-100,000 HCG,Quantitative 75031.00 Comprehensive Metabolic Pane l Reviewed date:08/07/2024 07:53:16 AM Interpretation: Performing Lab:, [facility], [address] [place] Notes/Report: Glucose 98 70-100 mg/dL Random Glucose Reference Range is dependent on time and content of last meal. Glucose of more than 200 mg/dL in a nonstressed, ambulatory subject supports the diagnosis of Diabetes Mellitus. ADA recommended reference range Blood Urea Nitrogen 7 7-25 mg/dL Creatinine 0.64 0.60-1.20 mg/dL Sodium 137 136-145 mmol/L Potassium 3.7 3.5-5.1 mmol/L Chloride 107 98-107 mmol/L Carbon Dioxide 22.7 21.0-31.0 mmol/L Calcium 9.0 8.6-10.3 mg/dL Total Protein 7.0 6.4-8.9 g/dL Albumin Level 4.0 3.5-5.7 g/dL Globulin 3.0 Albumin/Globulin Ratio 1.3 Bilirubin,Total 0.6 0.3-1.0 mg/dL Aspartate Amino Transferase 11 13-39 U/L Alanine Aminotransferase 7 7-52 U/L Alkaline Phosphatase 44 34-104 U/L Estimated GFR >60.0 Anion Gap 11.0 6.0-15.0 meq/L Creatinine Clr Calc Pharmacy 119.09 CT abdomen pelvis w con Reviewed date:07/14/2024 04:15:57 PM Interpretation: Performing Lab: Notes/Report: [facility] Main [place] [address] [place] [address] CT Scan Report Signed Patient: Lisha Fonseca MR#: [id number] : 1990 Acct:[id number] Age/Sex: 34 / F ADM Date: 07/14/24 [...] Mancera Jr., D.OJorge07/14/2024 2:43 PM Dictation Location: [facility]--23 Transcribed By: PWS 07/14/24 1443 Dictated By: Leroy Mancera Jr, DO 07/14/24 1438 Signed By: <Electronically signed by Leroy Mancera Jr, DO in OV> 07/14/24 1443 COVID-19 / Flu A/B / RSV PCR Reviewed date:07/14/2024 05:15:14 PM Interpretation: Performing Lab:, [facility], [address], [place] Notes/Report: COVID-19 Cepheid Result Negative for KELLY S-CoV-2 RNA by RT-PCR Flu A Cepheid Result Negative for Flu A RNA by RT-PCR Flu B Cepheid Result Negative for Flu B RNA by RT-PCR RSV Cepheid Result Negative for RSV RNA by RT-PCR COVID19 Blank Space ---- ------ Reference: Negative COVID19 Blank Space ---- ------ Cepheid Disclaimer The CepAgilvaxid Xpert Xp ress CoV-2/Flu/RSV Plus has [employer] Disclaimer not been FDA cleared or approved; this test has [employer] Disclaimer been authorized by Bryce BRANCH under an EUA for use by Cepheid Disclaimer authorized laborator ies; this test has been Cepheid Disclaimer authorized only for the simultaneous qualitative Cepheid Disclaimer detection and differentiation of nucleic acids from Cepheid Disclaimer SARS-CoV-2, influenz a A, influenza B, and Cepheid Disclaimer respiratory syncytia l virus (RSV), and not for any Cepheid [...] is terminated or Cepheid Disclaimer revoked sooner. Dipstick and Microscopic Reviewed date:07/14/2024 05:15:14 PM Interpretation: Performing Lab:, [facility], [address], [place] Notes/Report: Name Collection Type:: Clean-Voided Midstream Color,Urine Yellow Yellow Appearance,Urine Clear Clear Specificy [place],Urine 1.030 1.001-1.030 pH,Urine 6.0 5.0-9.0 Leukocyte Esterase,Urine Negative Negative Nitrite,Urine Negative Negative Protein,Urine 20 Negative mg/dL Glucose,Urine (UA) Normal Normal Ketones,Urine 2+ Negative Urobilinogen,Urine 3 Normal mg/dL Bilirubin,Urine Negative Negative Occult Blood,Urine 1+ Negative RBC,Urine 20-49 0-4 WBC,Urine 5-9 0-4 Squamous Epithelial Cell,Urine 5-9 0-2 Bacteria,Urine Rare None Seen Hyaline Casts,Urine None 0-8 Mucus,Urine 2+ COVID-19 PCR Reviewed date:07/14/2024 05:15:14 PM Interpretation: Performing Lab:, [facility], [address], [place] Notes/Report: This is a duplicate Cepheid Xpert Xpress CoV-2/Flu/RSV Plus RNA by RT-PCR result to be used for statistical tracking purpose only. Cepheid COVID PCR Negative Negative Negative HCG,Urine Reviewed date:07/14/2024 05:15:14 PM Interpretation: Performing Lab: Notes/Report: Name Collection Type:: Clean-Voided Midstream HCG Qualitative,Urine Negative Complete Blood Count Auto Di ff Reviewed date:07/14/2024 05:15:14 PM Interpretation: Performing Lab:, [facility], [address] [place] Notes/Report: For adults in ED, MDW > 20.0 may be associated with a higher risk of sepsis during the first 12 hrs of hospital admission White Blood Count 4.3 3.8-11.6 10*3/uL Uncorrected WBC 4.3 3.8-11.6 10*3/uL Red Blood Count 4.57 3.60-5.00 Hemoglobin 10.8 11.8-15.4 g/dL Hematocrit 33.4 34.0-46.4 % Mean Corpuscular Volume 73.1 80-100 fL Mean Corpuscular Hemoglobin 23.5 24.7-34.3 pg Mean Corpuscular HGB Conc 32.2 32.0-35.0 g/dL Red Cell Distribution Width 13.7 11.9-15.3 % Platelet Count 168 150-450 10*3/uL Mean Platelet Volume 9.1 6.3-10.7 fL Neutrophils % (Auto) 63.5 . % Lymphocytes % (Auto) 23.2 . % Monocytes % (Auto) 12.3 . % Eosinophils % (Auto) 0.6 . % Basophils % (Auto) 0.4 . % NRBC% 0.1 0-0.5 /100{WBC} Neutrophils # (Auto) 2.7 1.8-7.7 10*3/uL Lymphocytes # (Auto) 1.0 1.00-4.8 10*3/uL Monocytes # (Auto) 0.5 0.0-0.8 10*3/uL Eosinophils # (Auto) 0.0 0.0-0.45 10*3/uL Basophils # (Auto) 0.0 0.0-0.2 10*3/uL Monocyte Distribution Width 20.43 0.00-20.00 % Lipase Reviewed date:07/14/2024 05:15:14 PM Interpretation: Performing Lab: Notes/Report: Lipase 45.0 11.0-82.0 U/L Hepatic Panel Reviewed date:07/14/2024 05:15:14 PM Interpretation: Performing Lab:, [facility], [address] Notes/Report: Total Protein 7.2 6.4-8.9 g/dL Albumin Level 4.1 3.5-5.7 g/dL Globulin 3.1 Albumin/Globulin Ratio 1.3 Bilirubin,Total 0.4 0.3-1.0 mg/dL Bilirubin,Direct 0.10 0.03-0.18 mg/dL Bilirubin,Indirect 0.3 Aspartate Amino Transferase 14 13-39 U/L Alanine Aminotransferase 9 7-52 U/L Alkaline Phosphatase 48 34-104 U/L Basic Metabolic Panel Reviewed date:07/14/2024 05:15:14 PM Interpretation: Performing Lab: Notes/Report: Glucose 88 70-100 mg/dL Random Glucose Reference Range is dependent on time and content of last meal. Glucose of more than 200 mg/dL in a nonstressed, ambulatory subject supports the diagnosis of Diabetes Mellitus. ADA recommended reference range Blood Urea Nitrogen 9 7-25 mg/dL Sodium 138 136-145 mmol/L Potassium 3.3 3.5-5.1 mmol/L Chloride 105 98-107 mmol/L Carbon Dioxide 25.2 21.0-31.0 mmol/L Calcium 8.9 8.6-10.3 mg/dL Creatinine 0.71 0.60-1.20 mg/dL Estimated GFR > 60.0 Anion Gap 11.1 6.0-15.0 Creatinine Clr Calc Pharmacy 107.14 Reason For Referral No Information Social History Tobacco Use: Social History Observation Description Date Details (start date - stop date) Never Smoker NA - NA Tobacco Screen: Question Answer Notes Are you a: never smoker Sexual Hx: Question Answer Notes Had sex in the last 12 months (vaginal, oral, or anal)? Yes with Men only Alcohol Screening: Question Answer Notes Did you have a drink contain ing alcohol in the past year? Yes How often did you have a dri nk containing alcohol in the past year? Monthly or less (1 point) How many drinks did you have on a typical day when you were drinking in the past year? 1 or 2 (0 points) Points 1 Interpretation Negative Depression Screening (PHQ-9): Question Answer Notes Little interest or pleasure in doing things Several days Feeling down, depressed, or hopeless More than h residential the days Trouble falling or staying a sleep, or sleeping too much Several days Feeling tired or having little energy Several da ys Poor appetite or overeating Several days Feeling bad about yourself-o r that you are a failure or have let yourself or your family down Several days Trouble concentrating on thi ngs, such as reading the newspaper or watching television Several days Moving or speaking so slowly that other people could have noticed. Or the opposite being so fidgety or restless that you have been moving around a lot more than usual Not at all Thoughts that you would be b gerardo off , or of hurting yourself in some way Several days(Consider Suicide Assessment Risk) Total Score 9 Intepretation Mild Depression PRAPARE Question Answer Notes Date Completed/Updated: 10/24/2021 What is your current housing situation? I have h ousing Are you worried about losing your housing? No What is the highest level of school that you have finished? 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 Check all that apply I do not have problems meeting my needs Has lack of transportation k ept you from medical appointments, meetings, work or from getting things needed for daily living? No How often do you see or talk to people that you care about and feel close to? (For example: talking to friends on the phone, visiting friends or family, going to worship or club meetings) 3 to 5 times a week How stressed are you? Stress is when someone feels tense, nervous, anxious, or cant sleep at night because their mind is troubled Not at all In the past year have you sp ent more than 2 nights in a row in a fci, intermediate, mcc center, or juvenile correctional facility? No Are you a refugee? No What country are you from? [place] Do you feel physically and e motionally safe where you currently live? Yes In the past year, have you b een afraid of your partner or ex-partner? No PRAPARE Score: 3 Problems Problem Type SNOMED Code ICD Code Onset Dates Problem Status W/U Status Risk Notes Problem 90271498 Hyperthyroidism (E05.90) Active confirmed Problem 602310144 Thyroid nodule (E04.1) Active confirmed Problem 74921863 Iron deficiency anemia, unspecified iron deficiency anemia type (D50.9) Active confirmed Problem 7780498 Migraine with au ra and without status migrainosus, not intractable (G43.109) Active confirmed Problem 854786549 Endometriosis (N80.9) Active confirmed Problem 632379356 Anxiety disorder , unspecified (F41.9) Active confirmed Encounters Encounter Location Date Provider Diagnosis [facility] [address] [facility] [place] [address] 12/19/2024 Leroy Salazar Encounter for dental examination and cleaning with abnormal findings Z01.21 ; Other dental procedure status Z98.818 ; Cracked tooth K03.81 ; Necrosis of pulp K04.1 and Dental caries on pit and fissure surface penetrating into dentin K02.52 [facility] [address] [place] [address] 07/18/2024 Yudelka [facility] [address] [place] [address] 08/13/2024 Yudelka Lopez Assessments Encounter Date Diagnosis (ICD Code) Assessment Notes Treatment Notes Treatment Clinical Notes Section Notes 12/19/2024 Encounter for dental examination and cleaning with abnormal findings (ICD-10 - Z01.21) 12/19/2024 Other dental procedure status (ICD-10 - Z98.818) 12/19/2024 Cracked tooth (ICD-10 - K03.81) 12/19/2024 Necrosis of pulp (ICD-10 - K04.1) 12/19/2024 Dental caries on pit and fissure surface penetrating into dentin (ICD-10 - K02.52) Plan Of Treatment Pending Test Test Name Order Date Basic Metabolic Panel 02/01/2025 Complete Blood Count Auto Diff 5 Quick Strep 02/01/2025 Respiratory (Upper) Panel, PCR 5 Dipstick and Microscopic 02/01/2025 BioFire Detected 02/01/2025 Insurance Providers Payer Name Payer Address Payer Phone Subscriber Number Group Number Insured Name Patient Relationship to Insured Coverage Start Date Coverage End Date [facility] [address] [place] [address] [id number] LISHA FONSECA Other 1 [employer] [place] [employer] [address] [place] [address] [id number] LISHA FONSECA Self - patient is the insured 3 3 Wrap [employer] [facility] [address] [place] [address] [id number] LISHA FONSECA Self - patient is the insured 3 3 Wrap [employer] [place] [address] [place] [address] [id number] LISHA FONSECA Self - patient is the insured 3 zDENTAL DQ [facility] [place]-ter[place] 22 [address] [place] [address] [id number] LISHA FONSECA Self - patient is the insured 2 zDental MEDICAID [facility] after [facility] CHP-terme d [address] [place] [phone] [id number] LISHA FONSECA Self - patient is the insured 2 DENTAL HUMANA [address] [address] [place] [address] [id number] LISHA FONSECA 5 Dental Wrap [facility] [employer] [address] [place] [address] [id number] LISHA FONSECA Self - patient is the insured 5 Dental [employer] DQ [address] [address] [place] [address] [id number] LISHA FONSECA Self - patient is the insured 5 Medical (General) History Medical History History ICD Code hypertension anemia Covid 19 Surgical History Surgery Date(Month/Year) section-x2 Endometrial Tumor Resection 04/03/22 Hospitalization History Reason Date(Month/Year) see surgical Child x2
--- OUTSIDE RECORDS SUMMARY | 2025-02-09 07:56 | XMS_ITS | Encounter Summary ---
Author Organization [facility] Address [address] [place] [address] Phone Care Team Providers Care Pipe Line Inspector Name Role Phone Yudelka Lopez Primary Care Provider + Encounter Details Date Type Department Care Team (Late st Contact Info) Description 03/31/2022 Orders Only [facility] [address] [place] [address] Conversion, Onbase Social History Tobacco Use Types Packs/Day Years Used Date Smoking Tobacco: Never Assessed Comments Unknown Sex and Gender Information Value Date Recorded Sex Assigned at Not on file Legal Sex Female 6:30 PM EST Gender Identity Not on file Sexual Orientation Not on file documented as of this encounter Plan of Treatment Scheduled Orders Name Type Priority Associated Diagnoses Orde r Schedule OUTSIDE LAB SCAN Lab Ordered: 03/31/2022 documented as of this encounter Visit Diagnoses Not on filedocumented in this encounter Care Teams Pipe Line Inspector Relationship Specialty Start Date End Date Yudelka Lopez APRN-CNP [address] [place] [address] PCP - General 01/20/23 documented as of this encounter
--- OUTSIDE RECORDS SUMMARY | 2025-02-09 07:56 | XMS_ITS | Encounter Summary ---
Author Organization [facility] Address [address] [place] [address] Care Team Providers Care Annealing Torch Operator Name Role Phone Sarah Lopez DO Unavailable [phone] Encounter Details Date Type Department Care Team (Late st Contact Info) Description 02/04/2025 Telephone [facility] [address] [place] [address] Suze Lopez LPN [address] [place] [phone] Social History Tobacco Use Types Packs/Day Years [...] on file documented as of this encounter Miscellaneous Notes * Telephone Encounter - Suez Lopez LPN - 02/04/2025 9:15 AM EDT Hi, this is Terri from [facility]. My number is [phone]. We have a mutual patient named Leandra Valentin. Her date of is 89. We had her scheduled for the 02/11 for a MCA Doppler for 30 min. And we have her scheduled in on february 26 for 45 min for a forDoppler in a growth anyways. Long story short, she called and says that she can't come on the ,I gave her 3 other options and she declined. She said she is not going to come to [place] for 30 minappointment and so that someone had to get her kids. So I wanted to document this. So you know thatshe has canceled and refused to make another appointment are declined again. My phone number is [phone], thank you. FYI for you documented in this encounter Plan of Treatment Upcoming Encounters Date Type Department Care Team (Late st Contact Info) Description 02/11/2025 10:50 AM EDT Routine [facility] [address] [facility] [place] [address] Priscilla Warren PA [address] [facility] [address] [place], [facility] 11/19/2025 10:50 AM EST Office Visit [facility] [address] [facility] [address] [place] [address] Kayleigh Chung, FREIGHT CAR BUILDER-SPACE OPERATIONS OFFICER [address] [place] [address] documented as of this encounter Visit Diagnoses Not on filedocumented in this encounter Care Teams Annealing Torch Operator Relationship Specialty Start Date End Date Sarah Lopez DO [address] [place] [address] Referring Physician Emergency Medicine 02/18/23 documented as of this encounter
--- OUTSIDE RECORDS SUMMARY | 2025-02-09 07:56 | XMS_ITS | Clinical Summary ---
Author Organization [facility] Address [address] [place] [address] Care Team Providers Care Freight Flagman Name Role Phone Unavailable Primary Care Provider Unavailabl e Allergies No known active allergies Medications NIFEdipine (ADALAT CC) 60 MG CR tablet Take 1 tablet by mouth daily 30 tablet 0 6 Active ferrous sulfate 325 (65 FE) MG tablet Take 1 tablet by mouth daily (with breakfast) 30 tablet 0 6 Active docusate sodium (COLACE, DULCOLAX) 100 MG CAPS Take 100 mg by mouth 2 times daily as needed for Constipation 60 capsule 0 6 Active sertraline (ZOLOFT) 25 MG tablet Take 1 tablet by mouth daily 30 tablet 3 6 Active Active Problems Patient Care Coordination No te Formatting of this note migh t be different from the original. Enrolled in pain medication research study - please remind patient to return surveys if seen for visits. Problem Noted Date Diagnosed Date Post depression 01/19/2016 Overview (01/19/2016): 01/19/16: EPDS 16, start 25mg ZolofRuchi teixeira to meet with patient and SW/Spiritual care to meet with patient while she is in NICU PLTCS 01/06/16, M apg 4/9, Wt 2#15 01/06/2016 High-risk in third trimester 6 PreE w/ severe features (BPs) 01/05/2016 Anemia 01/05/2016 Overview (01/05/2016): Iron supplementation s/p celestone 01/0401/05/2016 Abnml 1hr GTT, 3hr wnl 01/05/2016 CHERYL sickle cell trait (maternal neg) 01/05/2016 Fam h/o polydactyly 01/05/2016 Overview (01/05/2016): FOB and FOB's grandmother BMI 35.0 - 39.9 01/05/2016 31 weeks gestation of Anemia affecting in third trimester Obesity in , antepartum Immunizations Immunization Administration Dates Next Due TDaP, ADACEL (age 10y-64y), BOOSTRIX (age 10y+), IM, 0.5mL 01/10/2016 Social History Tobacco Use Types Packs/Day Years Used Date Smoking Tobacco: Never Alcohol Use Standard Drinks/Week Comments No 0 (1 standard drink = 0.6 oz pur e alcohol) Comments No Sex and Gender Information Value Date Recorded Sex Assigned at Not on file Legal Sex Female 7:19 PM EDT Gender Identity Not on file Sexual Orientation Not on file Last Filed Vital Signs Vital Sign Reading Time Taken Comments Blood Pressure 130/81 01/19/2016 3:46 PM EDT Pulse 87 01/19/2016 3:46 PM EDT Temperature 36.6 C (97.9 F) 01/19/2016 3:46 PM EDT Respiratory Rate 16 01/19/2016 3:46 PM EDT Oxygen Saturation 100% 01/10/2016 8:00 AM EDT Inhaled Oxygen Concentration - - Weight 79.1 kg (174 lb 4.8 oz) 01/19/2016 3:46 P M EDT Height 157 cm (5' 1.81 ) 01/19/2016 3:46 PM EDT Body Mass Index 32.08 01/19/2016 3:46 PM EDT Plan of Treatment Not on file Insurance [facility] [place] Advance Directives * Full Code (Latest Code Status on File) Date Activated Date Inactivated Comments 01/06/2016 3:26 PM 01/10/2016 9:07 PM * Full Code Date Activated Date Inactivated Comments 01/06/2016 12:49 PM 01/06/2016 3:26 PM * Full Code Date Activated Date Inactivated Comments 01/05/2016 8:33 PM 01/06/2016 12:49 PM
--- OUTSIDE RECORDS SUMMARY | 2025-02-09 07:56 | XMS_ITS | Clinical Summary ---
Author Organization [facility] Address [address] [place] [id number] Care Team Providers Care Agronomy Supervisor Name Role Phone Unavailable Primary Care Provider Unavailabl e Allergies No known active allergies Medications VIT/IRON FUMARATE/FA ( FORMULA ORAL) Take 1 tablet by mouth once daily. Active acetaminophen (TYLENOL) 325 mg tablet Take 650 mg by mouth every 6 hours as needed. Active Social History Tobacco Use Types Packs/Day Years Used Date Smoking Tobacco: Passive Smo ke Exposure - Never Smoker Alcohol Use Standard Drinks/Week Comments Not Asked 0 (1 standard drink = 0.6 oz pur e alcohol) Comments Unknown Sex and Gender Information Value Date Recorded Sex Assigned at Not on file Legal Sex Female 3:17 PM EST Gender Identity Not on file Sexual Orientation Not on file Last Filed Vital Signs Vital Sign Reading Time Taken Comments Blood Pressure 171/68 10/15/2015 8:33 AM EST Pulse 104 10/15/2015 8:33 AM EST Temperature - - Respiratory Rate - - Oxygen Saturation - - Inhaled Oxygen Concentration - - Weight 75 kg (165 lb 6.4 oz) 10/15/2015 8:33 AM EST Height 156.2 cm (5' 1.5 ) 10/15/2015 8:33 AM EST Body Mass Index 30.75 10/15/2015 8:33 AM EST Plan of Treatment Health Maintenance Due Date Last Done Comments Anxiety Screening 2010 Depression Screening 2010 HIV Screening 2010 Hepatitis C Screening 2010 Hepatitis B Vaccine (1 of 3 - 19+ 3-dose series) 06/13 Cervical Cancer Screening 2013 Covid-19 Vaccine () 05/18/2024 Influenza Vaccine (Season Ended) 2025 DTaP,Tdap,Td Vaccine (2 - Td or Tdap) 01/09/2026 Insurance [facility] [employer] [place]
--- OUTSIDE RECORDS SUMMARY | 2025-02-09 07:56 | XMS_ITS | Encounter Summary ---
Author Organization [facility] Address [address] [facility] [place] [address] Care Team Providers Care Bearingizer Name Role Phone Sarah Lopez DO Unavailable [phone] Encounter Details Date Type Department Care Team (Late st Contact Info) Description 01/06/2025 Results Follow-Up [facility] [address] [place] [address] Suze Lopez LPN [address] [place] [id number] Social History Tobacco Use Types Packs/Day Years [...] as of this encounter Miscellaneous Notes * Result Encounter Note - Suze Lopez LPN - 01/06/2025 11:56 AM EDT Pt notified and is going to wait until next OB appointment documented in this encounter Plan of Treatment Upcoming Encounters Date Type Department Care Team (Late st Contact Info) Description 02/11/2025 10:50 AM EDT Routine [facility] [address] [facility] [place] [phone] Priscilla Warren PA [address] [facility] [address] [place], [place] [id number] 11/19/2025 10:50 AM EST Office Visit [facility] [address] [place] [address] Kayleigh Chung, STONE CIRCULAR SAWYER-PRODUCT GRADER [address] [place] [address] documented as of this encounter Visit Diagnoses Not on filedocumented in this encounter Care Teams Bearingizer Relationship Specialty Start Date End Date Sarah Lopez DO [address] [place] [address] Referring Physician Emergency Medicine 02/18/23 documented as of this encounter
--- OUTSIDE RECORDS SUMMARY | 2025-02-09 07:56 | XMS_ITS | Clinical Summary ---
Author Organization [facility] Address [address] [place] [address] Phone Care Team Providers Care Silk Screen Printer Machine Name Role Phone Yudelka Lopez APRN-CAR SEALER Primary Care Provider + Social History Tobacco Use Types Packs/Day Years Used Date Smoking Tobacco: Never Assessed Comments Unknown Sex and Gender Information Value Date Recorded Sex Assigned at Not on file Legal Sex Female 6:30 PM EST Gender Identity Not on file Sexual Orientation Not on file Last Filed Vital Signs Vital Sign Reading Time Taken Comments Blood Pressure 137/66 04/07/2022 12:02 PM EDT Pulse 73 04/07/2022 12:02 PM EDT Temperature 36.5 C (97.7 F) 04/07/2022 12:02 PM EDT Respiratory Rate 16 04/07/2022 12:02 PM EDT Oxygen Saturation 100% 04/07/2022 12:02 PM EDT Inhaled Oxygen Concentration - - Weight 75.8 kg (167 lb) 04/07/2022 12:02 PM EDT Height 157.8 cm (5' 2.13 ) 04/07/2022 12:02 PM E DT Body Mass Index 30.42 04/07/2022 12:02 PM EDT Plan of Treatment Health Maintenance Due Date Last Done Comments HIV Screening 1992 Lipid Panel 1992 Yearly Adult Physical 1992 MMR Vaccines (1 of 1 - Stand kassi series) 1993 Varicella Vaccines (1 of 2 - 13+ 2-dose series) 2005 Hepatitis C Screening 2010 Hepatitis B Vaccines (1 of 3 - 19+ 3-dose series) 2011 Cervical Cancer Screening 2013 HPV/Cotest 2013 Pap Smear 2013 DTaP/Tdap/Td Vaccines (1 - Tdap) 2014 COVID-19 Vaccine (1 - 2023-2 5 season) 2024 Influenza Vaccine (Season Ended) 2025 Zoster Vaccines (1 of 2) 2042 HIB Vaccines Aged Out No longer eligi ble based on patient's age to complete this topic HPV Vaccines Aged Out No longer eligi ble based on patient's age to complete this topic Hepatitis A Vaccines Aged Out No long er eligible based on patient's age to complete this topic IPV Vaccines Aged Out No longer eligi ble based on patient's age to complete this topic Meningococcal Vaccine Aged Out No tommie fredo eligible based on patient's age to complete this topic Pneumococcal Vaccine: Pediat rics and At-Risk Adult Patients Aged Out No longer anamaria gible based on patient's age to complete this topic Rotavirus Vaccines Aged Out No longer eligible based on patient's age to complete this topic Medical Devices Implanted Type Area Charge Aide Device Identifier Shelf Expiration Date Model / Serial / Lot Mesh, Softmesh 3 X 6, Flat Case [id number] Implanted:Qty: 1 on 04/03/2022 by Sly Crocker MD MPH Mesh Abdomen DAVOL 05/14/2024 [id number] / / [id number] Description:Converted from [facility] Care Acute. Please see archived information for full log information. Care Teams Silk Screen Printer Machine Relationship Specialty Start Date End Date Yudelka Lopez, MACHINE OPERATOR ASSISTANT-CAR SEALER [address] [place] [address] PCP - General 01/20/23
--- OUTSIDE RECORDS SUMMARY | 2025-02-09 07:56 | XMS_ITS | Encounter Summary ---
Author Organization [facility] Address [id number] [address] [place] [address] Care Team Providers Care Road Maker Name Role Phone No Pcp, No Pcp Primary Care Provider Unavailabl e Encounter Details Date Type Department Care Team (Late st Contact Info) Description 01/28/2025 Telephone Maternal Medicine [place] [phone] [facility] [address] [place] [address] Josye Valentine Social History Tobacco Use Types Packs/Day Years [...] encounter Miscellaneous Notes * Telephone Encounter - Josey Valentine - 01/28/2025 9:43 AM EDT I called pt to talked about the apts I scheduled due to us already being booked in [place] I scheduled her in [place] instead documented in this encounter Plan of Treatment Upcoming Encounters Date Type Department Care Team (Late st Contact Info) Description 02/26/2025 2:15 PM EDT Appointment Maternal Medicine [place] [address] [facility] [facility] [address] [place] [address] documented as of this encounter Visit Diagnoses Not on filedocumented in this encounter Care Teams Road Maker Relationship Specialty Start Date End Date No Pcp, [place] [address] PCP - General Family Medicine 02/21/24 documented as of this encounter
--- OUTSIDE RECORDS SUMMARY | 2025-02-09 07:56 | XMS_ITS | Encounter Summary ---
Author Organization [facility] Address [address] [place] [address] Care Team Providers Care Door Clamper Name Role Phone Sarah Lopez DO Unavailable [phone] Encounter Details Date Type Department Care Team (Late st Contact Info) Description 01/30/2025 Abstract [facility] [address] [address] Mary Cruz MA Social History Tobacco Use Types Packs/Day Years [...] AM EDT Routine [facility] [address] [place] [address] Priscilla Warren PA [address] [place], [place] [id number] 11/19/2025 10:50 AM EST Office Visit [facility] [address] [place] [address] Kayleigh Chung, HEART SURGEON-EXPLOSIVES DETONATOR [address] [place] [address] documented as of this encounter Visit Diagnoses Not on filedocumented in this encounter Care Teams Door Clamper Relationship Specialty Start Date End Date Sarah Lopez DO [address] [place] [address] Referring Physician Emergency Medicine 02/18/23 documented as of this encounter
--- OUTSIDE RECORDS SUMMARY | 2025-02-09 07:56 | XMS_ITS | Encounter Summary ---
Author Organization [facility] Address [id number] [address] [place] [address] Care Team Providers Care Payment Processor Name Role Phone No Pcp, No Pcp Primary Care Provider Unavailabl e Encounter Details Date Type Department Care Team (Latest Contact Info) Description 01/27/2025 Travel Social History Tobacco Use Types Packs/Day Years [...] 2:15 PM EDT Appointment Maternal Medicine [place] [address] [place] [address] [place] [address] documented as of this encounter Visit Diagnoses Not on filedocumented in this encounter Care Teams Payment Processor Relationship Specialty Start Date End Date No Pcp, [place] [address] PCP - General Family Medicine 02/21/24 documented as of this encounter
--- OUTSIDE RECORDS SUMMARY | 2025-02-09 07:56 | XMS_ITS | Encounter Summary ---
Author Organization [facility] Address [address] [place] [address] Care Team Providers Care Veterinary Surgeon Name Role Phone Sarah Lopez DO Unavailable [phone] Encounter Details Date Type Department Care Team (Late st Contact Info) Description 01/09/2025 Results Follow-Up [facility] [address] [place] [address] Suze Lopez LPN [address] [employer] [place] [id number] Social History Tobacco Use Types Packs/Day Years [...] Encounter Note - Suze Lopez LPN - 01/09/2025 10:04 AM EDT Labs were sent over to the hospital to be done so we can do prior auth documented in this encounter Plan of Treatment Upcoming Encounters Date Type Department Care Team (Late st Contact Info) Description 02/11/2025 10:50 AM EDT Routine [facility] [address] [place] [address] Priscilla Warren PA [address] [place], [place] [id number] 11/19/2025 10:50 AM EST Office Visit [facility] [address] [place] [address] Kayleigh Chung APRN-ELECTRICAL INSTRUMENT MAKER [address] [place] [address] documented as of this encounter Visit Diagnoses Not on filedocumented in this encounter Care Teams Veterinary Surgeon Relationship Specialty Start Date End Date Sarah Lopez DO [address] [place] [address] Referring Physician Emergency Medicine 02/18/23 documented as of this encounter
--- OUTSIDE RECORDS SUMMARY | 2025-02-09 07:56 | XMS_ITS | Encounter Summary ---
Author Organization [facility] Address [address] [place] [address] [place] [address] Care Team Providers Care Electronic Scanner Operator Name Role Phone Sarah Lopez DO Unavailable [phone] Encounter Details Date Type Department Care Team (Late st Contact Info) Description 01/08/2025 Results Follow-Up [facility] [address] [place] [address] Suze Lopez LPN [address] [employer] [place] [phone] Social History Tobacco Use Types Packs/Day Years [...] Encounter Note - Suze Lopez LPN - 01/08/2025 4:45 PM EDT Pt notified and labs were ordered. documented in this encounter Plan of Treatment Upcoming Encounters Date Type Department Care Team (Late st Contact Info) Description 02/11/2025 10:50 AM EDT Routine [facility] [address] [place] [address] Priscilla Warren PA [address] [facility] [place] [address] 11/19/2025 10:50 AM EST Office Visit [facility] [address] [place] [address] Kayleigh Chung, HEEL PACKER-WAREHOUSE DISTRIBUTION ASSOCIATE [address] [place] [address] documented as of this encounter Visit Diagnoses Not on filedocumented in this encounter Care Teams Electronic Scanner Operator Relationship Specialty Start Date End Date Sarah Lopez DO [address] [place] [address] Referring Physician Emergency Medicine 02/18/23 documented as of this encounter
--- OUTSIDE RECORDS SUMMARY | 2025-02-09 07:57 | XMS_ITS | Clinical Summary ---
Author Organization [facility] Address [id number] [address] [place] [address] Care Team Providers Care Merchandise Marker Name Role Phone No Pcp, No Pcp Primary Care Provider Unavailabl e Allergies Active Allergy Reactions Criticality Noted Date Comments Cefdinir 10/10/2024 Labetalol 02/21/2024 Labetalol Hcl 10/10/2024 Methimazole 10/10/2024 Medications ondansetron (ZOFRAN) 8 mg tablet Take by mouth every 8 (eight) hours as needed for nausea or vomiting. Active 25/iron fum/folic/dha (-1 ORAL) Take 1 tablet by mouth daily. Active aspirin 81 mg Take 81 mg by mouth daily. Active ferrous sulfate 325 (65 FE) mg tablet Take 325 mg by mouth daily with breakfast. Active labetalol (NORMODYNE) 100 mg tablet Take 100 mg by mouth 2 (two) times a day. Active magnesium oxide (MAGOX) 400 mg tablet Take 1 tablet (400 mg total) by mouth in the morning. Active metoclopramide (REGLAN) 10 mg tablet Take 1 tablet (10 mg total) by mouth in the morning and 1 tablet (10 mg total) at noon and 1 tablet (10 mg total) in the evening and 1 tablet (10 mg total) before bedtime. Active Active Problems Problem Noted Date Diagnosed Date Choroid plexus cyst of fetus affecting care of mother, antepartum, fetus 1 11/21/2024 History of pre-eclampsia in prior , currently in first trimester 03/17/2019 Previous delivery affecting , antepartum 03/17/2019 History of anemia 03/17/2019 Estimated Date of Delivery Comme nts Yes 04/05/2025 Based on Ultraso und Encounters Date Type Department Care Team Description 02/04/2025 Telephone [facility] [address] [place] [address] Josey Valentine 01/28/2025 Orders Only [facility] at [facility] [address] [facility] [address] [place] [address] Marci Coppola, FER Thalassemia alpha carrier (Primary Dx); Family history of sickle cell trait; Family history of DVT; History of anemia; Choroid plexus cyst of fetus affecting care of mother, antepartum, fetus 1; Abnormal genetic test during ; Previous delivery affecting , antepartum; History of pre-eclampsia in prior , currently in first trimester 01/28/2025 Telephone [facility] [address] [place] [address] Josey Valentine 01/27/2025 9:56 AM EDT - 01/27/2025 11:59 PM EDT Hospital Encounter [facility] - Ultrasound [address] [place] [address] History of anemia Discharge Disposition: Home 01/27/2025 Travel 01/13/2025 9:00 AM EDT - 01/13/2025 11:59 PM EDT Hospital Encounter [facility] - Ultrasound [address] [place] [address] Alpha thalassemia silent carrier Discharge Disposition: Home 01/13/2025 Travel 12/16/2024 8:46 AM EDT - 12/16/2024 11:59 PM EDT Hospital Encounter [facility] - Ultrasound [address] [place] [address] Alpha thalassemia silent carrier Discharge Disposition: Home 12/16/2024 Travel 12/12/2024 9:00 AM EDT Telemedicine Maternal- Medicine at [facility] [address] [place] [phone] Torey Montgomery MD Allen, Madeline P, LG Thalassemia alpha carrier (Primary Dx); Abnormal genetic test during ; Family history of sickle cell trait; Family history of DVT 12/12/2024 Travel 12/09/2024 Telephone [facility]- [facility] at [facility] [address] [place] [address] Natalie Díaz RN 12/09/2024 Orders Only [facility]- [facility] at [facility] [address] [place] [address] Natalie Díaz RN Choroid plexus cyst of fetus affecting care of mother, antepartum, fetus 1 12/09/2024 Orders Only [facility]aternal- Medicine at [facility] [address] [place] [address] Natalie Díaz RN Thalassemia alpha carrier (Primary Dx) 12/08/2024 Telephone [facility]aternal- Medicine at [facility] [address] [place] [address] Josey Valentine 12/08/2024 Documentation [facility]- [facility] at [facility] [address] [place] [address] Torey Montgomery MD 12/01/2024 Orders Only [facility]- [facility] at [facility] [address] [place] [address] Natalie Díaz RN Choroid plexus cyst of fetus affecting care of mother, antepartum, fetus 1 11/21/2024 11:00 AM EST Office Visit [facility] at [facility] [address] [facility] [place] [address] Torey Montgomery MD Previous delivery affecting , antepartum (Primary Dx); History of pre-eclampsia in prior , currently in first trimester; History of anemia; Choroid plexus cyst of fetus affecting care of mother, antepartum, fetus 1 11/21/2024 9:35 AM EST - 11/21/2024 11:59 PM EST Hospital Encounter [facility] [address] [facility] [place] [address] Screening, , for anatomic survey Discharge Disposition: Home 11/21/2024 Orders Only [facility]- Medicine at [facility] [address] [place] [address] Priscilla Haider LPN History of anemia (Primary Dx) 11/21/2024 Travel from Last 3 Months Family History Medical History Relation Name Comments Arthritis Father Deep vein thrombosis Father Diabetes Father Heart disease Father Hypertension Father Stroke Maternal Grandfather Ovarian cancer Maternal Grandmother Diabetes Mother Hypertension Mother Cancer Paternal Grandfather Leukemia Paternal Grandfather Diabetes Paternal Grandmother Crohn's disease Sister Thyroid disease Sister Relation Name Status Comments Father Maternal Grandfather Maternal Grandmother Mother Paternal Grandfather Paternal Grandmother Sister Social History Tobacco Use Types Packs/Day Years [...] Sign Reading Time Taken Comments Blood Pressure 113/69 11/21/2024 9:53 AM EST Pulse 87 11/21/2024 9:53 AM EST Temperature 36.9 C (98.5 F) 02/21/2024 9:52 AM EDT Respiratory Rate 18 02/21/2024 9:52 AM EDT Oxygen Saturation 98% 02/21/2024 9:52 AM EDT Inhaled Oxygen Concentration - - Weight 83.6 kg (184 lb 3.2 oz) 11/21/2024 9:53 A M EST Height 160 cm (5' 2.99 ) 11/21/2024 9:53 AM EST Body Mass Index 32.64 11/21/2024 9:53 AM EST Plan of Treatment Upcoming Encounters Date Type Department Care Team (Late st Contact Info) Description 02/26/2025 2:15 PM EDT Appointment [facility] [address] [place] [address] [address] [place] [id number] Health Maintenance Due Date Last Done Comments Depression Screening 2004 Adult BMI Follow Up Plan 2010 Influenza Vaccine 05/18/2025 09/01/2021 Adult BMI Screening 11/21/2025 11/21/2024 Tobacco Screening 11/21/2025 11/21/2024 DTaP,Tdap and Td Vaccines (3 - Td or Tdap) 01/09/2026 01/10/2016, 03/22/2009 Pap Smear 10/14/2027 10/14/2024 Medical Devices Not on file Procedures Procedure Name Priority Date/Time Associated Diagnosis Comments [facility] OB FOLLOW-UP, 1 FETUS Routine 01/27/2025 10:46 AM EDT History of anemia [facility] LMTD OB, 1 OR MORE FETUS Routine 01/13/2025 9:29 AM EDT Alpha thalassemia silent carrier [facility] LMTD OB, 1 OR MORE FETUS Routine 12/16/2024 9:44 AM EDT Alpha thalassemia silent carrier [facility] COMPREHENSIVE ANATOMIC SURVEY Routine 11/21/2024 11:17 AM EST Screening, , for anatomic survey UNLISTED LAB TEST Routine 11/21/2024 Choroid plexus cyst of fetus affecting care of mother, antepartum, fetus 1 UNLISTED LAB TEST Routine 11/21/2024 Choroid plexus cyst of fetus affecting care of mother, antepartum, fetus 1 from Last 3 Months Results * [facility] OB FOLLOW-UP, 1 FETUS (01/27/2025 10:46 AM EDT) Only the most recent of4 resultswithin the time period is included. Anatomical Region Laterality Modality OB-EXTRUSION DIE CORRECTOR Ultrasound 01/27/2025 10:0 9 AM EDT Narrative 01/27/2025 11:10 AM EDT NAME: MARIAN HUSAIN : 1990 SEX: F Accession Number: [id number] ORDERING PHYSICIAN: TOREY MONTGOMERY REFERRING PHYSICIAN: MARIA HARTLEY Coding ----- --------- Procedures 08496: Follow-up Ultrasound, per fetus 533[address]: Doppler velocimetry, ; middle cerebral artery Indication [...] Cerebellum tr 36.6 mm 30w 1d 31% Ryde AC 250.6 mm 29w 2d 18% Hadlock Femur 56.7 mm 29w 5d 22% Hadlock Humerus 50.1 mm 29w 2d 27% Osiel HC / AC 1.12 EFW 1,447 g 22% Hadlock EFW (lb) 3 lb EFW (oz) 3 oz EFW by: Hadlock ([id number]) Extended Tibia 48.0 mm 29w 0d 16% Osiel Button Tufting Machine Operator 3.6 mm CM 5.9 mm 19% Nicolaides [...] Heart/Thorax: 4-chamber view. RVOT view. LVOT view. 6-niexpm-nenesuw view. Situs. Aortic arch view. Bicaval view. [...] PI 1.99 30% Ebbing RI 0.84 71% [facility] PS 50.72 cm/s PS 1.24 [...] primary OB provider unless otherwise specified by MFM. Results forwarded to ordering provider so they can follow up with the patient as necessary. Procedure Note Terence Escobedo MD - 01/27/2025 NAME: MARIAN HUSAIN : 1990 SEX: F Accession Number: [id number] ORDERING PHYSICIAN: TOREY MONTGOMERY REFERRING PHYSICIAN: MARIA HARTLEY Coding ----- --------- Procedures [id number]: Follow-up Ultrasound, per fetus 72164: Doppler velocimetry, ; middle cerebral artery Indication [...] EFW (oz) 3 oz EFW by: Hadlock ([id number]) Extended Tibia 48.0 mm 29w 0d 16% Osiel Button Tufting Machine Operator 3.6 mm CM 5.9 mm 19% Nicolaides [...] Heart/Thorax: 4-chamber view. RVOT view. LVOT view. 8-esjzoe-ngiwyrz view.Situs. Aortic arch view. Bicaval view. Ductal [...] PI 1.99 30% Ebbing RI 0.84 71% [facility] PS 50.72 cm/s PS 1.24 [...] byprimary OB provider unless otherwise specified by MFM. Results forwarded to ordering provider so they can follow up with thepatient as necessary. Torey Montgomery MD [facility] ORDERABLES Final Resul t * Unlisted Lab Test (11/21/2024) Only the most recent of2 resultswithin the time period is included. 11/21/2024 Torey Montgomery MD LAB BLOOD ORDERABLES Final Re sult [facility] from Last 3 Months Insurance [facility] MED[place] Care Teams Merchandise Marker Relationship Specialty Start Date End Date No Pcp, [place] [address] PCP - General Family Medicine 02/21/24
--- OUTSIDE RECORDS SUMMARY | 2025-02-09 07:57 | XMS_ITS | Encounter Summary ---
Author Organization [facility] Address [address] [place] [address] Care Team Providers Care Director Product Safety Name Role Phone Sarah Lopez DO Unavailable [phone] Encounter Details Date Type Department Care Team (Late st Contact Info) Description 01/14/2025 Abstract [facility] OB [address] [place] [address] Malcolm Pendleton [address] Mary [place], [place] [address] Social History Tobacco Use Types Packs/Day Years [...] AM EDT Routine [facility] [address] [place] [address] Priscilla Warren PA [address] [place], [facility] 11/19/2025 10:50 AM EST Office Visit [facility] [address] [facility] [address] [place] [address] Kayleigh Chung APRN-CONTACT LENS ASSISTANT [address] [address] documented as of this encounter Visit Diagnoses Not on filedocumented in this encounter Care Teams Director Product Safety Relationship Specialty Start Date End Date Sarah Lopez DO [address] [place] [address] Referring Physician Emergency Medicine 02/18/23 documented as of this encounter
--- OUTSIDE RECORDS SUMMARY | 2025-02-09 07:57 | XMS_ITS ---
Author Organization [facility] Source Produ ction (ClinicalSummary Clone) Address Unknown Care Team Providers Care Child Adolescent Care Name Role Phone Unavailable Primary Care Physician Unavailab le Results * [UNITY] CARRIER SCREEN Performed by: [employer] Component Value Range Date Fraction 8.4% 12/03/2024 09 :58 pm UT Alpha-Thalassemia NIPT result INCREASED RISK 1 in 36 ( paternal ethnicity); 1 in 220 (General population) for hemoglobin H disease. See PDF for details. 12/03/2024 09:58 pm UT Sickle Cell Disease/Beta-Thalassemia/Hem oglobinopathies carrier screen NEGATIVE 12/03/2024 09:58 pm UTC Alpha-Thalassemia carrier screen POSITIVE Carrier; a-/a- 12/03/2024 09:58 pm UTC Cystic Fibrosis carrier screen NEGATIVE 12/03/2024 09:58 pm UTC Spinal Muscular Atrophy carrier screen NEGATIVE 3 SMN1 copies, SNP not present 12/03/2024 09:58 pm UTC For detailed report, see PDF See PDF 12/03/2024 09:58 pm UTC 12/03/2024 09:5 8 pm UT Social History Observation Value Start Date End Date
--- OUTSIDE RECORDS SUMMARY | 2025-02-09 07:57 | XMS_ITS | Encounter Summary ---
Author Organization [facility] Address [address] [place] [address] Care Team Providers Care Forms Designer Name Role Phone Sarah Lopez DO Unavailable [phone] Encounter Details Date Type Department Care Team (Late st Contact Info) Description 11/24/2024 Abstract [facility] OB [address] [place] [address] Malcolm Pendleton [address] Mary Garcia, [place] [address] Social History Tobacco Use Types Packs/Day Years [...] Routine [facility] OB [address] [place] [address] Priscilla Warren PA [address] [place], [facility] 11/19/2025 10:50 AM EST Office Visit [facility] [address] [facility] [address] [place] [address] Kayleigh Chung APRN-APRN [address] [address] documented as of this encounter Visit Diagnoses Not on filedocumented in this encounter Care Teams Forms Designer Relationship Specialty Start Date End Date Sarah Lopez DO [address] [place] [address] Referring Physician Emergency Medicine 02/18/23 documented as of this encounter
--- OUTSIDE RECORDS SUMMARY | 2025-02-09 07:57 | XMS_ITS | Encounter Summary ---
Author Organization [facility] Address [address] [place] [address] Care Team Providers Care Hobbing Machine Operator Name Role Phone Sarah Lopez DO Unavailable [phone] Encounter Details Date Type Department Care Team (Late st Contact Info) Description 09/15/2024 Abstract [facility] OB [address] [place] [address] Malcolm Pendleton [address] Mary Garcia, [place] [address] Social History Tobacco Use Types Packs/Day Years [...] Routine [facility] B[facility] OB [address] [place] [address] Priscilla Warren PA [address] [place], [facility] 11/19/2025 10:50 AM EST Office Visit [facility] [address] [facility] [address] [place] [address] Kayleigh Chung APRN-CORE FEEDER [address] [address] documented as of this encounter Visit Diagnoses Not on filedocumented in this encounter Care Teams Hobbing Machine Operator Relationship Specialty Start Date End Date Sarah Lopez DO [address] [place] [address] Referring Physician Emergency Medicine 02/18/23 documented as of this encounter
--- OUTSIDE RECORDS SUMMARY | 2025-02-09 07:57 | XMS_ITS | Encounter Summary ---
Author Organization [facility] Address [address] [place] [address] Care Team Providers Care Ruling Technician Name Role Phone Sarah Lopez DO Unavailable [phone] Encounter Details Date Type Department Care Team (Late st Contact Info) Description 11/21/2024 External Result Encounter [facility] [address] [place] [address] Maria Pendleton DO [address], [facility] Social History Tobacco Use Types Packs/Day Years [...] EDT Routine [facility] [place] [address] [place] [address] Priscilla Warren PA [address] [place] [address] 11/19/2025 10:50 AM EST Office Visit [facility] [address] [place] [address] Kayleigh Chung, ASSAULT AMPHIBIOUS VEHICLE CREWMAN-INSURANCE HEALTHCARE REPRESENTATIVE [address] [place] [address] documented as of this encounter Procedures Procedure Name Priority Date/Time Associated Diagnosis Comments US OB 14+ WEEKS ANATOMY SCAN 11/21/2024 3:40 PM EST documented in this encounter Results * US OB 14+ weeks anatomy scan (11/21/2024 3:40 PM EST) Anatomical Region Laterality Modality Body Ultrasound 11/21/2024 3:40 PM EST Narrative 11/21/2024 3:40 PM EST THIS EXAM WAS PERFORMED AT [facility] NAME: MARIAN HUSAIN : 1990 SEX: F Accession Number: [id number] ORDERING PHYSICIAN: HENNY MONTGOMERY REFERRING PHYSICIAN: MARIA PENDLETON Coding ----- --------- Procedures 88213: Ultrasound, uterus, real time with image documentation, and maternal evaluation plus detailed anatomic examination, transabdominal approach;single or first gestation 31558: Transvaginal Ultrasound (OB) Indication ----- --------- Screening for Anatomic Survey , Screening for cervical length , Previous C- Section x2 , History of prior with pre-eclampsia , History of prior with delivery @ 31weeks , Supervision of high risk - Alpha thalassemia silent carrier, Obesity in History ----- --------- OB History 3. Para 2 T1P1L1 Maternal Assessment ----- --------- Physical Exam Height 160 cm, 5 ft 3 in. Weight 83 kg, 184 lb. BMI 32.59 kg/m??? Method ----- --------- Transabdominal and transvaginal ultrasound examination. View: Suboptimal view: limited by position ----- --------- Krueger . Number of fetuses: 1 Dating ----- --------- LMP on: 06/23/2024 GA by LMP 21 w + 4 d MORALES by LMP: 03/30/2025 GA by prior assessment 20 w + 5 d MORALES by prior assessment: 04/05/2025 Ultrasound examination on: 11/21/2024 GA by U/S based upon: AC, BPD, Femur, HC GA by U/S 20 w + 4 d MORALES by U/S: 04/06/2025 Assigned: based on stated MORALES, selected on 11/21/2024 Assigned GA 20 w + 5 d Assigned MORALES: 04/05/2025 General Evaluation ----- --------- Cardiac activity Present. FHR 150 bpm. Presentation: cephalic Placenta: Placental site: posterior, fundal Umbilical cord: Cord vessels: 3 vessel cord. Insertion site: normal insertion Amniotic fluid: Amount of AF: normal amount Biometry ----- --------- BPD 46.6 mm 20w 1d 24% Hadlock OFD 63.7 mm 21w 5d 82% Osiel HC 177.6 mm 20w 2d 21% Hadlock Cerebellum tr 22.3 mm 20w 6d 72% Hill Nuchal fold 4.7 mm AC 158.7 mm 21w 0d 53% Hadlock Femur 34.1 mm 20w 5d 41% Hadlock Humerus 31.9 mm 20w 5d 46% Osiel HC / AC 1.12 26% Hadlock Weight Calculation: EFW 376 g 47% Hadlock EFW (lb,oz) 0 lb 13 oz EFW by Hadlock ([id number]) Head / Face / Neck Biometry: Cephalic index 0.73 5% Nicolaides Cardroom Worker 4.4 mm CM 4.2 mm 20% Nicolaides Inner IOD 13.2 mm Outer IOD 32.9 mm Extremities / Bony Struc Biometry: FL / BPD 0.73 65% Hadlock FL / HC 0.19 48% Hadlock FL / AC 0.21 31% Hadlock Tibia 25.8 mm 19w 1d 8% Osiel Anatomy ----- --------- The following structures appear abnormal: Head/Neck: Right choroid plexus: cyst. Abdomen: Right renal artery: Double renal artery. The following structures appear normal: Head / Neck Cranium. Lateral ventricles. Left choroid plexus. Midline falx. Cavum septi pellucidi. Cerebellum. Cisterna magna. Parenchyma. Vermis. Neck. Nuchal fold. Face: Maxilla. Mandible. Orbits. Heart/Thorax: 4-chamber view. 3-vessel view. Situs. Cardiac position. Cardiac axis. Cardiac size. Cardiac rhythm. Right lung. Left lung. Abdomen Abdom. wall. Cord insertion. Stomach. Kidneys. Bladder. Small bowel. Large bowel. Left renal artery. Genitals. Extremities/Skeleton: Right upper arm. Right forearm. Right hand. Left upper arm. Left forearm. Right upper leg. Right lower leg. Right foot. Left upper leg. Left lower leg. Left foot. The following structures could not be adequately visualized: Face Profile. Nose. Heart / Thorax Aortic arch view. Ductal arch view. Interventricular septum. Great vessels. Diaphragm. Spine: Cervical spine. Thoracic spine. Lumbar spine. Sacral spine. The following structures could not be examined: Face Lips. Heart / Thorax RVOT view. LVOT view. 7-rckiyy-qvgzkyu view. Bicaval view. Extremities / Left hand. Skeleton Maternal Structures ----- --------- Uterus Visualized Cervix Visualized Approach - Transvaginal: Cervical length 4.35 cm Right Ovary Not visualized Left Ovary Not visualized Cul de Sac Visualized. No free fluid visualized Impression ----- --------- Single viable intrauterine consistent with 20w 5d with an MORALES of 04/05/2025. Transvaginal cervical length measures 4.35 cm. Right choroid plexus cyst is identified. Per [facility] guidelines, isolated chorioid plexus cysts (CPCs) are a normal variant of no clinical importance with no indication for follow-up ultrasound imaging or evaluation in the setting of low risk cell free DNA screening. Double right renal artery identified. Recommendations ----- --------- Please see [facility] documentation from today. The patient is scheduled in four to six week(s) to complete anatomic survey. Subsequent follow up or other follow up as clinically determined by primary OB provider unless otherwise specified by [facility]. Results forwarded to ordering provider so they can follow up with the patient as necessary. The copy-to physician of this order is MARIA Brito The ordering physician of this order is HENNY Pineda Procedure Note Radiology, Radiologist, MD - 11/21/2024 THIS EXAM WAS PERFORMED AT [facility] NAME: MARIAN HUSAIN : 1990 SEX: F Accession Number: [id number] ORDERING PHYSICIAN: HENNY MONTGOMERY REFERRING PHYSICIAN: MARIA PENDLETON Coding ----- --------- Procedures [id number]: Ultrasound, uterus, real time with imagedocumentation, and maternal evaluation plus detailed anatomic examination, transabdominalapproach;single or first gestation 38530: Transvaginal Ultrasound (OB) Indication ----- --------- Screening for Anatomic Survey , Screening for cervical length , PreviousC- Section x2 , History of prior with pre-eclampsia , History of prior with delivery @ 31weeks, Supervision of high risk - Alpha thalassemia silent carrier, Obesity in History ----- --------- OB History 3. Para 2 T1P1L1 Maternal Assessment ----- --------- Physical Exam Height 160 cm, 5 ft 3 in. Weight 83 kg, 184 lb. BMI 32.59kg/m??? Method ----- --------- Transabdominal and transvaginal ultrasound examination. View: Suboptimalview: limited by position ----- --------- Krueger . Number of fetuses: 1 Dating ----- --------- LMP on: 06/23/2024 GA by LMP 21 w + 4 d MORALES by LMP: 03/30/2025 GA by prior assessment 20 w + 5 d MORALES by prior assessment: 04/05/2025 Ultrasound examination on: 11/21/2024 GA by U/S based upon: AC, BPD, Femur, HC GA by U/S 20 w + 4 d MORALES by U/S: 04/06/2025 Assigned: based on stated MORALES, selected on 11/21/2024 Assigned GA 20 w + 5 d Assigned MORALES: 04/05/2025 General Evaluation ----- --------- Cardiac activity Present. FHR 150 bpm. Presentation: cephalic Placenta: Placental site: posterior, fundal Umbilical cord: Cord vessels: 3 vessel cord. Insertion site: normalinsertion Amniotic fluid: Amount of AF: normal amount Biometry ----- --------- BPD 46.6 mm 20w 1d 24% Hadlock OFD 63.7 mm 21w 5d 82% Osiel HC 177.6 mm 20w 2d 21% Hadlock Cerebellum tr 22.3 mm 20w 6d 72% Hill Nuchal fold 4.7 mm AC 158.7 mm 21w 0d 53% Hadlock Femur 34.1 mm 20w 5d 41% Hadlock Humerus 31.9 mm 20w 5d 46% Osiel HC / AC 1.12 26% Hadlock Weight Calculation: EFW 376 g 47% Hadlock EFW (lb,oz) 0 lb 13 oz EFW by Hadlock ([id number]) Head / Face / Neck Biometry: Cephalic index 0.73 5% Nicolaides Cardroom Worker 4.4 mm CM 4.2 mm 20% Nicolaides Inner IOD 13.2 mm Outer IOD 32.9 mm Extremities / Bony Struc Biometry: FL / BPD 0.73 65% Hadlock FL / HC 0.19 48% Hadlock FL / AC 0.21 31% Hadlock Tibia 25.8 mm 19w 1d 8% Osiel Anatomy ----- --------- The following structures appear abnormal: Head/Neck: Right choroid plexus: cyst. Abdomen: Right renal artery: Double renal artery. The following structures appear normal: Head / Neck Cranium. Lateral ventricles. Left choroid plexus. Midlinefalx. Cavum septi pellucidi. Cerebellum. Cisterna magna. Parenchyma. Vermis. Neck. Nuchal fold. Face: Maxilla. Mandible. Orbits. Heart/Thorax: 4-chamber view. 3-vessel view. Situs. Cardiac position.Cardiac axis. Cardiac size. Cardiac rhythm. Right lung. Left lung. Abdomen Abdom. wall. Cord insertion. Stomach. Kidneys. Bladder.Small bowel. Large bowel. Left renal artery. Genitals. Extremities/Skeleton: Right upper arm. Right forearm. Right hand. Leftupper arm. Left forearm. Right upper leg. Right lower leg. Right foot. Left upper leg. Left lower leg. Left foot. The following structures could not be adequately visualized: Face Profile. Nose. Heart / Thorax Aortic arch view. Ductal arch view. Interventricularseptum. Great vessels. Diaphragm. Spine: Cervical spine. Thoracic spine. Lumbar spine. Sacral spine. The following structures could not be examined: Face Lips. Heart / Thorax RVOT view. LVOT view. 5-lnxavt-axaegsj view. Bicavalview. Extremities / Left hand. Skeleton Maternal Structures ----- --------- Uterus Visualized Cervix Visualized Approach - Transvaginal: Cervical length 4.35 cm Right Ovary Not visualized Left Ovary Not visualized Cul de Sac Visualized. No free fluid visualized Impression ----- --------- Single viable intrauterine consistent with 20w 5d with an MORALES of04/05/2025. Transvaginal cervical length measures 4.35 cm. Right choroid plexus cyst is identified. Per [facility] guidelines, isolated chorioid plexus cysts (CPCs) are a normalvariant of no clinical importance with no indication for follow-up ultrasound imaging or evaluation in the setting of lowrisk cell free DNA screening. Double right renal artery identified. Recommendations ----- --------- Please see [facility] documentation from today. The patient is scheduled in four to six week(s) to complete anatomicsurvey. Subsequent follow up or other follow up as clinically determined byprimary OB provider unless otherwise specified by [facility]. Results forwarded to ordering provider so they can follow up with thepatient as necessary. The copy-to physician of this order is MARIA Brito The ordering physician of this order is HENNY Pineda us Maria Pendleton DO IMG OB US PROCEDURES Final Resul t documented in this encounter Visit Diagnoses Not on filedocumented in this encounter Care Teams Ruling Technician Relationship Specialty Start Date End Date Sarah Lopez DO [address] [place] [address] Referring Physician Emergency Medicine 02/18/23 documented as of this encounter
--- OUTSIDE RECORDS SUMMARY | 2025-02-09 07:57 | XMS_ITS | Encounter Summary ---
Author Organization [employer] s tem Address [id number] [address] [place] [address] Care Team Providers Care Rn Bone Marrow Transplant Name Role Phone No Pcp, No Pcp Primary Care Provider Unavailabl e Encounter Details Date Type Department Care Team (Late st Contact Info) Description 02/04/2025 Telephone Maternal Medicine [place] [id number] [facility] [address] [place] [address] Josey Valentine Social History Tobacco Use Types Packs/Day [...] * Telephone Encounter - Josey Valentine - 02/04/2025 9:11 AM EDT This pt called this morning to cancel her 02-11 [facility] doppler appt. I gave her three alt, apt dates and time, she also declined these as well,I called her dr, dr matos I left a message for the nurse. Thank you documented in this encounter Plan of Treatment Upcoming Encounters Date Type Department Care Team (Late st Contact Info) Description 02/26/2025 2:15 PM EDT Appointment Maternal Medicine [place] [id number] [facility] [address] [place] [address] documented as of this encounter Visit Diagnoses Not on filedocumented in this encounter Care Teams Rn Bone Marrow Transplant Relationship Specialty Start Date End Date No Pcp, [place] [address] PCP - General Family Medicine 02/21/24 documented as of this encounter
--- OUTSIDE RECORDS SUMMARY | 2025-02-09 07:57 | XMS_ITS | Encounter Summary ---
Author Organization [facility] Address [address] [place] [address] Care Team Providers Care Marketing Operations Assistant Name Role Phone Sarah Lopez DO Unavailable [phone] Encounter Details Date Type Department Care Team (Late st Contact Info) Description 12/17/2024 Abstract [facility] [address] [place] [address] Malcolm Pendleton [address] [place], [place] [address] Social History Tobacco Use Types Packs/Day Years [...] Routine [facility] [address] [place] [address] Priscilla Warren PA [address] [place], [facility] 11/19/2025 10:50 AM EST Office Visit [facility] [address] [facility] [address] [place] [address] Kayleigh Chung APRN-HEAD LIBRARIAN [address] [address] documented as of this encounter Visit Diagnoses Not on filedocumented in this encounter Care Teams Marketing Operations Assistant Relationship Specialty Start Date End Date Sarah Lopez DO [address] [place] [address] Referring Physician Emergency Medicine 02/18/23 documented as of this encounter
--- OUTSIDE RECORDS SUMMARY | 2025-02-09 07:57 | XMS_ITS | Encounter Summary ---
Author Organization [facility] Address [address] [place] [address] Care Team Providers Care Engineer Steam Name Role Phone Sarah Lopez DO Unavailable [phone] Encounter Details Date Type Department Care Team (Late st Contact Info) Description 01/20/2025 Abstract [facility] OB [address] [place] [address] Malcolm Pendleton [address] Mary [place], [place] [address] Social History Tobacco Use Types Packs/Day Years [...] Routine [facility] [address] [place] [address] Priscilla Warren PA [address] [place], [facility] 11/19/2025 10:50 AM EST Office Visit [facility] [address] [facility] [address] [place] [address] Kayleigh Chung APRN-SECURITY COMPLIANCE ENGINEER [address] [address] documented as of this encounter Visit Diagnoses Not on filedocumented in this encounter Care Teams Engineer Steam Relationship Specialty Start Date End Date Sarah Lopez DO [address] [place] [address] Referring Physician Emergency Medicine 02/18/23 documented as of this encounter
--- OUTSIDE RECORDS SUMMARY | 2025-02-09 07:57 | XMS_ITS | Encounter Summary ---
Author Organization [facility] [employer] [facility] [facility] Address [id number] [address] [place] [address] Care Team Providers Care Meeting Facilitator Name Role Phone No Pcp, No Pcp Primary Care Provider Unavailabl e Reason for Referral * Diagnostic Imaging (Routine) - Pending Review Specialty Diagnoses / Procedures Referred By Rustam teixeira Referred To Contact Maternal and Medicine Diagnoses Thalassemia alpha carrier Family history of sickle cell trait Family history of DVT History of anemia Choroid plexus cyst of fetus affecting care of mother, antepartum, fetus 1 Abnormal genetic test during Previous delivery affecting , antepartum History of pre-eclampsia in prior , currently in first trimester Procedures US MFM with or without consult Terence Escobedo MD [address] [facility], [address] [place] [id number] Phone: tel: fax: Maternal- Medicine at [facility] [address] [place] [address] Phone: tel: fax: Referral ID Status Reason Start Date Expiration Date V isits Requested Visits Authorized [id number] Pending Review 01/28/2025 01/28/2026 1 1 Encounter Details Date Type Department Care Team (Late st Contact Info) Description 01/28/2025 Orders Only Maternal- Medicine at [facility] [address] [place] [address] Marci Coppola CMA Thalassemia alpha carrier (Primary Dx); Family history of sickle cell trait; Family history of DVT; History of anemia; Choroid plexus cyst of fetus affecting care of mother, antepartum, fetus 1; Abnormal genetic test during ; Previous delivery affecting , antepartum; History of pre-eclampsia in prior , currently in first trimester Social History Tobacco Use Types Packs/Day Years [...] 02/26/2025 2:15 PM EDT Appointment Maternal Medicine [place] [address] [facility] [address] [facility] [address] [place] [address] Scheduled Orders Name Type Priority Associated Diagnoses Orde r Schedule US MFM with or without consult Imaging Routine Thalassemia alpha carrier Family history of sickle cell trait Family history of DVT History of anemia Choroid plexus cyst of fetus affecting care of mother, antepartum, fetus 1 Abnormal genetic test during Previous delivery affecting , antepartum History of pre-eclampsia in prior , currently in first trimester Expected: 01/28/2026 (Approximate), Expires: 01/28/2026 documented as of this encounter Visit Diagnoses Diagnosis Thalassemia alpha carrier- Primary Family history of sickle cell trait Family history of DVT History of anemia Personal history of diseases of blood and blood-forming organs Choroid plexus cyst of fetus affecting care of mother, antepartum, fetus 1 Abnormal genetic test during Previous delivery affecting , antepartum Previous delivery, antepartum condition or complication History of pre-eclampsia in prior , currently in first trimester documented in this encounter Care Teams Meeting Facilitator Relationship Specialty Start Date End Date No Pcp, No Pcp KRISTOPHER Mccormick [address] PCP - General Family Medicine 02/21/24 documented as of this encounter
--- OUTSIDE RECORDS SUMMARY | 2025-02-09 07:57 | XMS_ITS | Encounter Summary ---
Author Organization [facility] Address [address] [place] [address] Care Team Providers Care Electromedical Equipment Repairer Name Role Phone Sarah Lopez DO Unavailable [phone] Encounter Details Date Type Department Care Team (Late Contact Info) Description 11/10/2024 Abstract [facility] [address] [place] [address] Ingrid Esquivel NP Social History Tobacco Use Types Packs/Day Years [...] Routine [facility] OB [address] [place] [id number] Priscilla Warren PA [address] [place], [place] [address] 11/19/2025 10:50 AM EST Office Visit [facility] [address] [place] [address] Kayleigh Chung, INSIDE SALES PERSON-STATISTICAL CLERK ADVERTISING [address] [place] [address] documented as of this encounter Visit Diagnoses Not on filedocumented in this encounter Care Teams Electromedical Equipment Repairer Relationship Specialty Start Date End Date Sarah Lopez DO [address] [place] [address] Referring Physician Emergency Medicine 02/18/23 documented as of this encounter
--- OUTSIDE RECORDS SUMMARY | 2025-02-09 07:57 | XMS_ITS | Encounter Summary ---
Author Organization [facility] Address [address] [place] [address] Care Team Providers Care Contact Center Assistant Name Role Phone Sarah Lopez DO Unavailable [phone] Encounter Details Date Type Department Care Team (Late st Contact Info) Description 01/27/2025 Bamboo flowsheet [facility] [address] [facility] [place] [address] Malcolm Pendleton [address] Mary [place], [place] [address] Social History Tobacco Use Types Packs/Day Years [...] AM EDT Routine [facility] [address] [facility] [place] [place] [address] Priscilla Warren PA [address] [facility] [address] [place] [address] 11/19/2025 10:50 AM EST Office Visit [facility] [address] [facility] [address] [place] [address] Kayleigh Chung, LIME SLUDGE KILN OPERATOR-MASTER TECHNICIAN [address] [facility] [address] [place] [address] documented as of this encounter Visit Diagnoses Not on filedocumented in this encounter Care Teams Contact Center Assistant Relationship Specialty Start Date End Date Sarah Lopez DO [address] [place] [address] Referring Physician Emergency Medicine 02/18/23 documented as of this encounter
--- OUTSIDE RECORDS SUMMARY | 2025-02-09 07:57 | XMS_ITS | Encounter Summary ---
Author Organization [facility] Address [address] [facility] [address] Care Team Providers Care Apiculturist Name Role Phone Sarah Lopez DO Unavailable [phone] Encounter Details Date Type Department Care Team (Late st Contact Info) Description 02/19/2024 Clinisync Result Encounter [facility] External Department Unsolicited Maria Pendleton DO [address] [place] [address] Social History Tobacco Use Types Packs/Day Years [...] more drinks on one occasion? Monthly 07/09/2023 Comments No Sex and Gender Information Value Date Recorded Sex Assigned at Not on file Legal Sex Female 7:06 PM EDT Gender Identity Not on file Sexual Orientation Not on file documented as of this encounter Plan of Treatment Upcoming Encounters Date Type Department Care Team (Late st Contact Info) Description 02/11/2025 10:50 AM EDT Routine [facility] [address] [facility] [address] Priscilla Warren PA [address] [place] [address] 11/19/2025 10:50 AM EST Office Visit [facility] [address] [place] [address] Kayleigh Chung, SHEET METAL LAYOUT MECHANIC-CLINICAL RESEARCH MANAGEMENT ASSOCIATE [address] [place] [address] documented as of this encounter Procedures Procedure Name Priority Date/Time Associated Diagnosis Comments US PELVIS TRANSVAGINAL 02/19/2024 12:27 PM EDT documented in this encounter Results * US PELVIS TRANSVAGINAL (02/19/2024 12:27 PM EDT) Anatomical Region Laterality Modality Other 02/19/2024 12:2 7 PM EDT Narrative 02/19/2024 12:29 PM EDT [address] [address] Ultrasound Report Signed Patient: LEANDRA VALENTIN MR#: [id number] : 1990 Acct:[id number] Age/Sex: 33 / F ADM Date: 02/19/24 Loc: [facility] Attending Dr: Maria Pendleton D.O. Ordering Physician: Maria Pendleton D.O. Date of Service: 02/19/24 Procedure(s): US pelvis transvaginal Accession Number(s): [id number] cc: Maria Pendleton D.O.; Physician,Non-Staff M.D. [address] [address] Patient Name: LEANDRA VALENTIN MRN: [id number] date: 1990 Sex: F Assigned Patient Location: [facility] Current Patient Location: [facility] Accession/Order Number: [id number] Exam Date: 02/19/2024 11:18 Report Date: 02/19/2024 12:27 At the request of: MARIA PENDLETON Procedure: US pelvis transvaginal Ultrasound pelvis, non-obstetric CLINICAL: UNABLE TO LOCATE IUD STRINGS FOR REMOVAL TECHNIQUE: Transvaginal pelvic ultrasound was performed. FINDINGS: Comparison: None. The uterus is anteverted and anteflexed in position. It measures 9.2 x 4.2 x 6.7 cm. There is no discrete myometrial mass. The endometrial complex measures 5 mm in thickness. There is a linear echogenic structure with shadowing seen within the endometrium compatible with intrauterine device. The stem is oriented longitudinally into the lower uterine segment, and the arms of the IUD are seen at the fundus. The right ovary measures 4.4 x 4.1 x 3.1 cm, with a dominant unilocular cyst measuring 3.7 x 3.6 x 2.2 cm. The left ovary measures 3.4 x 2.5 x 2.1 cm. There is normal vascular flow to both ovaries, with resistive index of 0.6 on right and 0.6 on the left. There is no free pelvic fluid or mass seen on either side. US/US pelvis transvaginal IMPRESSION: 1. Intrauterine device located in expected position within the uterus. The stem is oriented longitudinally into the lower uterine segment and the arms of the IUD are at the fundus. Otherwise, normal appearance of the uterus. 2. Dominant 3.4 cm unilocular cyst in right ovary. Otherwise, normal appearance of both ovaries were normal vascular flow. 3. No free pelvic fluid. Electronically authenticated by: JC WOOD Date: 02/19/2024 12:27 Dictated By: Jc Wood M.D. Signed By: 02/19/24 1229 DD/ 1227 TD/TT: Putty Mixer And Applier: Procedure Note Radiology, Radiologist, MD - 02/19/2024 [place] [address] Ultrasound Report Signed Patient: LEANDRA VALENTIN GMR#: [id number] : 1990Acct:[id number] Age/Sex: Date: 02/19/24 Loc: [facility] Attending Dr: Maria Pendleton D.O. Ordering Physician: Maria Pendleton D.O. Date of Service: 02/19/24 Procedure(s): US pelvis transvaginal Accession Number(s): [id number] cc: Maria Pendleton D.O.; Physician,Non-Staff Kacey The [place] [id number] Patient Name: LEANDRA VALENTIN MRN: [id number] date: 1990 Sex: F Assigned Patient Location: [facility] Current Patient Location: [facility] Accession/Order Number: [id number] Exam Date: 02/19/2024 11:18 Report Date: 02/19/2024 12:27 At the request of: MARIA PENDLETON Procedure: US pelvis transvaginal Ultrasound pelvis, non-obstetric CLINICAL: UNABLE TO LOCATE IUD STRINGS FOR REMOVAL TECHNIQUE: Transvaginal pelvic ultrasound was performed. FINDINGS: Comparison: None. The uterus is anteverted and anteflexed in position. It measures 9.2 x 4.2x 6.7 cm. There is no discrete myometrial mass. The endometrial complexmeasures 5 mm in thickness. There is a linear echogenic structure with shadowingseen within the endometrium compatible with intrauterine device. The stem is oriented longitudinally into the lower uterine segment, and the arms ofthe IUD are seen at the fundus. The right ovary measures 4.4 x 4.1 x 3.1 cm, with a dominant unilocularcyst measuring 3.7 x 3.6 x 2.2 cm. The left ovary measures 3.4 x 2.5 x 2.1 cm. There is normal vascular flow to both ovaries, with resistive index of 0.6 onright and 0.6 on the left. There is no free pelvic fluid or mass seen on either side. US/US pelvis transvaginal IMPRESSION: 1. Intrauterine device located in expected position within the uterus. The stem is oriented longitudinally into the lower uterine segment and the arms ofthe IUD are at the fundus. Otherwise, normal appearance of the uterus. 2. Dominant 3.4 cm unilocular cyst in right ovary. Otherwise, normal appearance of both ovaries were normal vascular flow. 3. No free pelvic fluid. Electronically authenticated by: JC WOOD Date: 02/19/2024 12:27 Dictated By: Jc Wood M.D. Signed By:02/19/24 1229 DD/ 1227 TD/TT: Putty Mixer And Applier: us Maria Helder DO [facility] Final Result documented in this encounter Visit Diagnoses Not on filedocumented in this encounter Care Teams Apiculturist Relationship Specialty Start Date End Date Sarah Lopez DO [address] [place] [address] Referring Physician Emergency Medicine 02/18/23 documented as of this encounter
--- OUTSIDE RECORDS SUMMARY | 2025-02-09 07:57 | XMS_ITS | Encounter Summary ---
Author Organization [facility] Address [address] [place] [address] Care Team Providers Care Top Bottom Attaching Machine Operator Name Role Phone Sarah Lopez DO Unavailable [phone] Encounter Details Date Type Department Care Team (Late st Contact Info) Description 08/27/2024 Clinisync Result Encounter [facility] External Department Unsolicited Maria Pendleton DO [address], [facility] Social History Tobacco Use Types Packs/Day [...] AM EDT Routine [facility] BCP OB [address] [facility] [place] [phone] Priscilla Warren PA [address] [facility] [place] [address] 11/19/2025 10:50 AM EST Office Visit [facility] [address] [place] [address] SariahKayleigh mares, ASSISTANT CONSTRUCTION SUPERINTENDENT-GUIDE VISITOR [address] [place] [address] documented as of this encounter Procedures Procedure Name Priority Date/Time Associated Diagnosis Comments US OB TRANSVAGINAL 08/27/2024 4: 27 AM EST documented in this encounter Results * US OB TRANSVAGINAL (08/27/2024 4:27 AM EST) Anatomical Region Laterality Modality Other 08/27/2024 4:27 AM EST Narrative 08/27/2024 4:30 [place] [address] Ultrasound Report Signed Patient: LEANDRA VALENTIN MR#: [id number] : 1990 Acct:[id number] Age/Sex: 34 / F ADM Date: 08/26/24 Loc: [facility] Attending Dr: Maria Pendleton D.O. Ordering Physician: Maria Pendleton D.O. Date of Service: 08/26/24 Procedure(s): US OB transvaginal Accession Number(s): [id number] cc: Maria Pendleton D.O.; Physician,Non-Staff M.DJorge The [address] [address] Patient Name: LEANDRA VALENTIN MRN: [id number] date: 1990 Sex: F Assigned Patient Location: [facility] Current Patient Location: Accession/Order Number: [id number] Exam Date: 08/26/2024 08:59 Report Date: 08/27/2024 04:27 At the request of: MARIA PENDLETON Procedure: US OB transvaginal EXAMINATION: US OB transvaginal HISTORY: MISSED MENSES COMPARISON: No relevant comparison available. FINDINGS: GESTATIONAL SAC: Present and normal appearing. YOLK SAC: Present and normal appearing. POLE: Present and normal appearing. CARDIAC: Present. UTERUS: Normal size and appearance. OVARIES: Right: Normal. Left: Corpus lutein cyst. CERVIX: 4.4 cm in length and closed. CUL-DE-SAC: Normal. OTHER: None. AGE BY LMP: 9 weeks 1 day MORALES BY LMP: 03/30/2025 AGE BY US CRL: 8 weeks 2 days MORALES BY US CRL: 04/05/2025 US/US OB transvaginal IMPRESSION: 1. Single live intrauterine . Electronically authenticated by: PRANEETH MIGUEL Date: 08/27/2024 04:27 Dictated By: Praneeth Miguel M.D. Signed By: 08/27/24429 DD/ 6 TD/TT: Adult Day Care Worker: Procedure Note Radiology, Radiologist, MD - 08/27/2024 [place] [address] Ultrasound Report Signed Patient: LEANDRA VALENTIN GMR#: [id number] : 1990Acct:[id number] Age/Sex: 34 / FADM Date: 08/26/24 Loc: [facility] Attending Dr: Maria Pendleton D.O. Ordering Physician: Maria Pendleton D.O. Date of Service: 08/26/24 Procedure(s): US OB transvaginal Accession Number(s): [id number] cc: Maria Pendleton D.O.; Physician,Non-Staff M.DJorge The [place] [id number] Patient Name: LEANDRA VALENTIN MRN: [id number] date: 1990 Sex: F Assigned Patient Location: [facility] Current Patient Location: Accession/Order Number: [id number] Exam Date: 08/26/2024 08:59 Report Date: 08/27/2024 04:27 At the request of: MARIA PENDLETON Procedure: US OB transvaginal EXAMINATION: US OB transvaginal HISTORY: MISSED MENSES COMPARISON: No relevant comparison available. FINDINGS: GESTATIONAL SAC: Present and normal appearing. YOLK SAC: Present and normal appearing. POLE: Present and normal appearing. CARDIAC: Present. UTERUS: Normal size and appearance. OVARIES: Right: Normal. Left: Corpus lutein cyst. CERVIX: 4.4 cm in length and closed. CUL-DE-SAC: Normal. OTHER: None. AGE BY LMP: 9 weeks 1 day MORALES BY LMP: 03/30/2025 AGE BY US CRL: 8 weeks 2 days MORALES BY US CRL: 04/05/2025 US/US OB transvaginal IMPRESSION: 1. Single live intrauterine . Electronically authenticated by: PRANEETH MIGUEL Date: 08/27/2024 04:27 Dictated By: Praneeth Miguel M.D. Signed By:08/27/24429 DD/ 6 TD/TT: Adult Day Care Worker: us Maria Pendleton DO [facility] Final Result documented in this encounter Visit Diagnoses Not on filedocumented in this encounter Care Teams Top Bottom Attaching Machine Operator Relationship Specialty Start Date End Date Sarah Lopez DO [address] [place] [address] Referring Physician Emergency Medicine 02/18/23 documented as of this encounter
--- OUTSIDE RECORDS SUMMARY | 2025-02-09 07:57 | XMS_ITS | Encounter Summary ---
Author Organization [facility] Address [address] [place] [address] Care Team Providers Care Councilman Name Role Phone Sarah Lopez DO Unavailable [phone] Encounter Details Date Type Department Care Team (Late Contact Info) Description 01/28/2025 External Result Encounter [facility] External Department Unsolicited Priscilla Warren, [place] [address] [facility] [address] [place], [facility]11 Social History Tobacco Use Types Packs/Day [...] Department Care Team (Late Contact Info) Description 02/11/2025 10:50 AM EDT Routine [facility] BCP OB [address] [facility] [place] [phone] Priscilla Warren PA [address] [facility] [place] [address] 11/19/2025 10:50 AM EST Office Visit [facility] [address] [place] [address] Kayleigh Chung, FISH HATCHERY WORKER-SQL APPLICATION DEVELOPER [address] [place] [address] documented as of this encounter Procedures Procedure Name Priority Date/Time Associated Diagnosis Comments TRANSFERRIN Routine 01/28/2025 8:32 AM EDT FERRITIN Routine 01/28/2025 8:32 AM EDT documented in this encounter Results * Ferritin (01/28/2025 8:32 AM EDT) FERRITIN 43.0 11.0 - 306.8 ng/mL 01/28/2025 11:09 AM EDT [facility] Other Topography unknown / Unknown 01/28/2025 8:32 AM EDT 01/28/2025 8:32 AM EDT us Priscilla [facility] BLOOD ORDERABLES Final Resul t [address] [address], [facility] [address] [place] [address] * Transferrin (01/28/2025 8:32 AM EDT) TRANSFERRIN 226 203 - 362 mg/dL 01/28/2025 11:02 AM EDT [facility] Other Topography unknown / Unknown 01/28/2025 8:32 AM EDT 01/28/2025 8:32 AM EDT us Priscilla [facility] LAB BLOOD ORDERABLES Final Resul t Performing Organization Address City/[facility]/ZIP Co de Phone Number [address] [address], [facility] [address] [place] [address] documented in this encounter Visit Diagnoses Not on filedocumented in this encounter Care Teams Councilman Relationship Specialty Start Date End Date Sarah Lopez DO [address] [place] [address] Referring Physician Emergency Medicine 02/18/23 documented as of this encounter
--- OUTSIDE RECORDS SUMMARY | 2025-02-09 07:57 | XMS_ITS | Encounter Summary ---
Author Organization [facility] Address [address] [place] [address] Care Team Providers Care Rail Track Layer Name Role Phone Sarah Lopez DO Unavailable [phone] Encounter Details Date Type Department Care Team (Late st Contact Info) Description 08/26/2024 Abstract [facility] OB [address] [facility] [place] [address] Malcolm Pendleton [address] [place], [place] [address] Social History Tobacco Use Types Packs/Day Years [...] Routine [facility] BCP OB [address] [place] [address] Priscilla Warren PA [address] [place], [facility]11 11/19/2025 10:50 AM EST Office Visit [facility] [address] [facility] [address] [place] [address] Kayleigh Chung APRN-MILLER SUPERVISOR [address] [address] documented as of this encounter Visit Diagnoses Not on filedocumented in this encounter Care Teams Rail Track Layer Relationship Specialty Start Date End Date Sarah Lopez DO [address] [place] [address] Referring Physician Emergency Medicine 02/18/23 documented as of this encounter
--- OUTSIDE RECORDS SUMMARY | 2025-02-09 07:57 | XMS_ITS | Encounter Summary ---
Author Organization [facility] Address [address] [place] [address] [place] [address] Care Team Providers Care Business Management Specialist Name Role Phone Sarah Lopez DO Unavailable [phone] Encounter Details Date Type Department Care Team (Late st Contact Info) Description 12/29/2024 Abstract [facility] OB [address] [facility] [place] [address] Malcolm Pendleton [address] [facility] [address] [place], [place] [address] Social History Tobacco Use Types Packs/Day Years [...] Routine [facility] BCP OB [address] [place] [address] Priscilla Warren PA [address] [place], [facility] 11/19/2025 10:50 AM EST Office Visit [facility] [address] [facility] [address] [place] [address] Kayleigh Chung APRN-NATURAL DEVELOPER [address] [address] documented as of this encounter Visit Diagnoses Not on filedocumented in this encounter Care Teams Business Management Specialist Relationship Specialty Start Date End Date Sarah Lopez DO [address] [place] [address] Referring Physician Emergency Medicine 02/18/23 documented as of this encounter
--- OUTSIDE RECORDS SUMMARY | 2025-02-09 07:57 | XMS_ITS | Clinical Summary ---
Author Organization [facility] Address [address] [place] [address] Care Team Providers Care Ambulette Driver Name Role Phone Sarah Lopez DO Unavailable [phone] Allergies Active Allergy Reactions Criticality Noted Date Comments Cefdinir 08/06/2024 Other Reaction(s): Unknown Reaction Labetalol Other,Shortness of breath,Unknown High 02/07/2023 Other Reaction(s): Dizziness, loopiness, burning sensation in chest Other Reaction(s): Difficulty Breathing Labetalol Hcl Hives Low 02/18/2023 Methimazole 03/11/2023 Other Reaction(s): throat closing Other Reaction(s): anaphylaxis Medications triamcinolone (Kenalog) 0.1 % creamIndication s:Other atopic dermatitis Apply to affected areas, up to twice a day when flared, do not use one the face, groin, or underarms, 30 day supply 180 g 11 5 Active valACYclovir (Valtrex) 500 MG tabletIndicatio ns:HSV (herpes simplex virus) infection Take 1 tablet (500 mg) by mouth Daily 30 tablet 11 5 12/26/19 26 Active metroNIDAZOLE (Flagyl) 500 MG tabletIndicatio ns:BV (bacterial vaginosis) Take 1 tablet (500 mg) by mouth in the morning and 1 tablet (500 mg) before bedtime. Do all this for 7 days. Do not drink alcohol while taking this medication. 14 tablet 5 01/23/20 25 Active Problems Problem Noted Date Diagnosed Date 10 weeks gestation of 09/11/2024 First trimester 09/11/2024 Estimated Date of Delivery Comme nts Yes 04/05/2025 Based on Ultraso und Encounters Date Type Department Care Team Description 02/04/[address] [facility] [address] [place] [address] Suze Lopez LPN 01/30/2025 Abstract [facility] [address] [address] Mary Cruz MA 01/28/2025 External Result Encounter [facility] External Department Unsolicited Priscilla Warren PA 01/27/2025 8:30 AM EDT Routine [facility] [address] [address] Maria Pendleton, Third trimester ; 30 weeks gestation of ; H/O pre-eclampsia in prior , currently ; H/O delivery, currently ; Request for sterilization 01/27/2025 Bamboo flowsheet [facility] [address] [place] [address] [place] [address] Maria Pendleton, 01/20/2025 Abstract [facility] [address] [place] [address] Maria Pendleton, 01/15/[address] [facility] [address] [place] [address] Christy Cui MA 01/14/2025 11:20 AM EDT Routine [facility] [address] [place] [address] Reema Leslie NP Third trimester ; 28 weeks gestation of 01/14/2025 External Result Encounter [facility] External Department Unsolicited Maria Pendleton, 01/14/2025 Abstract [facility] [address] [place] [address] Maria Pendleton, 01/14/2025 Bamboo flowsheet [facility] [address] [place] [address] Reema Leslie NP 01/09/2025 Results Follow-Up [facility] [address] [place] [address] [place] [address] Suze Lopez, PAYROLL ASSISTANT 01/08/2025 Results Follow-Up [facility] [address] [place] [address] [place] [address] Suze Lopez, PAYROLL ASSISTANT 01/08/[address] [facility] OB [address] [place] [address] [place] [address] Suze Lopez, PAYROLL ASSISTANT 01/08/2025 Clinisync Result Encounter [facility]S External Department Unsolicited Maria Pendleton, DO 01/06/2025 Results Follow-Up [facility] [address] [place] [address] [place] [address] Suze Lopez, PAYROLL ASSISTANT 01/06/2025 Clinisync Result Encounter [facility] External Department Unsolicited Priscilla Warren PA 12/30/2024 11:10 AM EDT [facility]ine [facility] [address] [place] [address] [place] [address] Maria Pendleton, Second trimester ; 26 weeks gestation of ; Seen in emergency room; Exposure to STD; HSV (herpes simplex virus) infection 12/30/2024 External Result Encounter [facility] External Department Unsolicited Maria Pendleton, 12/30/[address] [facility] [address] [place] [address] [place] [address] Maria Pendleton, 12/29/[address] [facility] [address] [place] [address] [place] [address] Maria Pendleton, 12/23/[address] [facility] [address] [place] [address] [place] [address] Christy Cui MA 12/17/[address] [facility] OB [address] [place] [address] [place] [address] Maria Pendleton, 12/02/2024 9:30 AM EDT [facility] [address] [address] Priscilla Warren PA 22 weeks gestation of ; Second trimester ; Diabetes mellitus screening; Tooth pain; Nausea 12/02/[address] [facility] [address] [address] [phone] Priscilal Warren PA 11/24/[address] [facility] [facility] [address] [address] Maria Pendleton, 11/21/2024 External Result Encounter [facility] [address] [place] [address] Maria Pendleton, 11/20/2024 Telephone [facility] [address] [place] [address] Cristin Perry LPN Prior Authorization 11/19/[address] [facility] [address] [place] [phone] Maria Pendleton, 11/18/2024 10:55 AM EST Office Visit [facility] [address] [place] [address] Kayleigh Chung, REHABILITATION ATTENDANT-SENIOR FRONT END WEB DEVELOPER Acne vulgaris (Primary Dx); Other atopic dermatitis 11/18/2024 Bamboo flowsheet [facility] [address] [place] [address] Kayleigh Chung, REHABILITATION ATTENDANT-SENIOR FRONT END WEB DEVELOPER 11/18/2024 Travel from Last 3 Months Family History Medical History Relation Name Comments Arthritis Father Tucker Deep vein thrombosis Father Tucker Diabetes Father Tucker Heart attack Father Tucker Heart disease Father Tucker Hypertension Father Tucker Diabetes Mother Makenna Hypertension Mother Makenna Leukemia Paternal Grandfather Crohn's disease Sister 1 Thyroid disease Sister 2 Jailyn Melanoma Neg Hx Relation Name Status Comments Brother (3) Alive Father Tucker Alive Maternal Grandfather Maternal Grandmother Mother Makenna Alive Paternal Grandfather Paternal Grandmother Sister 1 Alive Sister 2 Jailyn Alive Sister 3 Alive Sister 4 Alive Son 1 Alive Son 2 Alive Social History Tobacco Use Types Packs/Day Years Used Date Smoking Tobacco: Never Smokeless Tobacco: Never Tobacco Cessation:Counseling Given: Not Answered Alcohol Use Standard Drinks/Week Comments Yes 1 [...] Pressure 128/78 01/27/2025 8:57 AM EDT Pulse 83 03/11/2023 9:58 AM EDT Temperature 36.6 C (97.8 F) 03/11/2023 9:58 AM EDT Respiratory Rate - - Oxygen Saturation 99% 03/11/2023 9:58 AM EDT Inhaled Oxygen Concentration - - Weight 90.3 kg (199 lb) 01/27/2025 8:57 AM EDT Height 160 cm (5' 3 ) 02/19/2024 10:46 AM EDT Body Mass Index 35.25 02/19/2024 10:46 AM EDT Plan of Treatment Upcoming Encounters Date Type Department Care Team (Late st Contact Info) Description 02/11/2025 10:50 AM EDT Routine [facility] [address] [place] [address] Priscilla Warren PA [address] [place], [place] [id number] 11/19/2025 10:50 AM EST Office Visit [facility] [address] [place] [address] Kayleigh Chung, REHABILITATION ATTENDANT-SENIOR FRONT END WEB DEVELOPER [address] [place] [id number] Procedures Procedure Name Priority Date/Time Associated Diagnosis Comments FERRITIN Routine 01/28/2025 8:32 AM EDT TRANSFERRIN Routine 01/28/2025 8:32 AM EDT RECURRENT VAGINITIS (HTRX) Routine 01/14/2025 11:52 AM EDT POCT URINALYSIS DIPSTICK Routine 01/14/2025 11:31 AM EDT Third trimester TBH CREATININE Routine 01/08/2025 8:35 AM EDT ALL BUN Routine 01/08/2025 8:35 AM EDT ALL CBC WITH AUTO DIFF Routine 01/08/2025 8:35 AM EDT TBH URINE MICROSCOPIC ONLY Routine 01/08/2025 8:05 AM EDT TBH UA (CLEAN/CATCH) EXTENSION AGENT/MICRO IF IND. Routine 01/08/2025 8:05 AM EDT GLUCOSE 1 HOUR Routine 01/06/2025 10:42 AM EDT ALL CBC WITH AUTO DIFF Routine 01/06/2025 10:42 AM EDT RECURRENT VAGINITIS (HTRX) Routine 12/30/2024 3:26 PM EDT POCT URINALYSIS DIPSTICK Routine 12/02/2024 9:32 AM EDT 22 weeks gestation of Second trimester US OB 14+ WEEKS ANATOMY SCAN 11/21/2024 3:40 PM EST from Last 3 Months Results * Transferrin (01/28/2025 8:32 AM EDT) TRANSFERRIN 226 203 - 362 mg/dL 01/28/2025 11:02 AM EDT [facility] Other Topography unknown / Unknown 01/28/2025 8:32 AM EDT 01/28/2025 8:32 AM EDT Priscilla SRIVASTAVA LAB BLOOD ORDERABLES Final Resul t Performing Organization Address City/[facility] [place] [address], [place] [phone] * Ferritin (01/28/2025 8:32 AM EDT) FERRITIN 43.0 11.0 - 306.8 ng/mL 01/28/2025 11:09 AM EDT [facility] Other Topography unknown / Unknown 01/28/2025 8:32 AM EDT 01/28/2025 8:32 AM EDT us Priscilla SRIVASTAVA LAB BLOOD ORDERABLES Final Resul t Performing Organization Address [facility] de Phone Number [place] [phone], [place] [phone] * (ABNORMAL) RECURRENT VAGINITIS (HTRX) (01/14/2025 11:52 AM EDT) Only the most recent of2 resultswithin the time period is included. ATOPOBIUM VAGINAE 25.517(A) 19.961 - 24.689 ppm 01/15/2025 7:26 AM EDT [facility] ATOPOBIUM VAGINAE Detected(A) 19.961 - 24.689 ppm 01/15/2025 7:26 AM EDT [facility] BVAB 2,3 (BACTERIAL VAGINOSIS ASSOCIATED BACTERIA 2, 3); MOBILUNCUS SPP 23.796(A) 19.961 - 24.689 ppm 01/15/2025 7:26 AM EDT [facility] BVAB 2,3 (BACTERIAL VAGINOSIS ASSOCIATED BACTERIA 2, 3); MOBILUNCUS SPP Detected(A) 19.961 - 24.689 ppm 01/15/2025 7:26 AM EDT [facility] MARION ALBICANS, PARAPSILOSIS, TROPICALIS 0.000 19.961 - 30.770 ppm 01/15/2025 7:26 AM EDT [facility] MARION ALBICANS, PARAPSILOSIS, TROPICALIS Not Detected 19.961 - 30.770 ppm 01/15/2025 7:26 AM EDT [facility] MARION GLABRATA 0.000 23.000 - 32.138 ppm 01/15/2025 7:26 AM EDT [facility] MARION GLABRATA Not Detected 23.000 - 32.138 ppm 01/15/2025 7:26 AM EDT [facility] MARION KRUSEI 0.000 23.000 - 32.271 ppm 01/15/2025 7:26 AM EDT [facility] MARION KRUSEI Not Detected 23.000 - 32.271 ppm 01/15/2025 7:26 AM EDT [facility] CHLAMYDIA TRACHOMATIS 0.000 23.000 - 31.467 ppm 01/15/2025 7:26 AM EDT [facility] CHLAMYDIA TRACHOMATIS Not Detected 23.000 - 31.467 ppm 01/15/2025 7:26 AM EDT [facility] GARDNERELLA VAGINALIS 0.000 19.961 - 24.689 ppm 01/15/2025 7:26 AM EDT [facility] GARDNERELLA VAGINALIS Not Detected 19.961 - 24.689 ppm 01/15/2025 7:26 AM EDT [facility] MEGASPHAERA (TYPES 1, 2) 0.000 19.961 - 24.689 ppm 01/15/2025 7:26 AM EDT [facility] MEGASPHAERA (TYPES 1, 2) Not Detected 19.961 - 24.689 ppm 01/15/2025 7:26 AM EDT [facility] NEISSERIA GONORRHOEAE 0.000 23.000 - 32.117 ppm 01/15/2025 7:26 AM EDT [facility] NEISSERIA GONORRHOEAE Not Detected 23.000 - 32.117 ppm 01/15/2025 7:26 AM EDT [facility] TRICHOMONAS VAGINALIS 0.000 23.000 - 32.119 ppm 01/15/2025 7:26 AM EDT [facility] TRICHOMONAS VAGINALIS Not Detected 23.000 - 32.119 ppm 01/15/2025 7:26 AM EDT [facility] MYCOPLASMA GENITALIUM 0.000 19.961 - 24.689 ppm 01/15/2025 7:26 AM EDT [facility] MYCOPLASMA GENITALIUM Not Detected 19.961 - 24.689 ppm 01/15/2025 7:26 AM EDT [facility] Tissue 01/14/2025 11:5 2 AM EDT 01/15/2025 2:13 AM EDT us Maria Pendleton DO LAB BLOOD ORDERABLES Final Resul t [facility] [address] [place] [address] * (ABNORMAL) POCT urinalysis dipstick manually resulted (01/14/2025 11:31 AM EDT) Only the most recent of2 resultswithin the time period is included. Color, UA Yellow Clarity, UA Clear Glucose, UA Negative Negative - 2000(110) ++++ mg/dL Bilirubin, UA Negative Negative - 4(70) +++ mg/dL Ketones, UA Positive Negative - 160(16) ++++ mg/dL Comment:Trace Spec Grav, UA 1.025 1 - 1.03 Blood, UA Positive Negative - 50 Hong/mcL Comment:Trace-lysed pH, UA 7.0 5 - 9 Protein, UA Trace Negative - 1999(20) ++++ mg/dL Urobilinogen, UA 1.0 0.2 - 12 mg/dL Leukocytes, UA Negative Negative - 500+++ Iqra/mcL Nitrite, UA Negative Negative - Positive Urine 01/14/2025 11:3 1 AM EDT Reema Leslie STRAIGHTEDGE WORKER POINT OF CARE TEST ENTER/EDIT ORDERABLES Final Result * TB CREATININE (01/08/2025 8:35 AM EDT) Pathologist [facility] CREATININE 0.63 0.55 - 1.02 mg/dL TBH TB EGFR-AF BRUNEIAN >60 >=60 mL/min/1.7 3m 2 TBH TB EGFR-NON AF BRUNEIAN >60 >=60 mL/min/1.7 3m 2 TBH 01/08/2025 8:35 AM EDT 01/08/2025 8:39 AM EDT Narrative CLINIS[facility]NC - 01/08/2025 8:49 AM EDT Maria Pendleton DO CLINISYNC Final Result [facility] * (ABNORMAL) ALL CBC WITH AUTO DIFF (01/08/2025 8:35 AM EDT) Only the most recent of2 resultswithin the time period is included. Pathologist [facility] TB WBC 8.9 4.0 - 11.0 10 3/uL TBH TB RBC 3.93(L) 4.20 - 5.40 10 6/uL TBH TBH HGB 9.4(L) 12.0 - 16.0 g/dL TB TB HCT 30.3(L) 36.0 - 48.0 % TBH TBH MCV 77.1(L) 81.0 - 99.0 fL TBH TBH MCH 23.9(L) 26.7 - 34.0 pg TBH TBH MCHC 31.0 29.9 - 35.2 g/dL TB TB RDW 13.4 11.0 - 15.0 % TBH TBH PLT 187 150 - 450 10 3/uL TBH TBH MPV 11.3 9.5 - 13.5 fL TBH NEUTROPHILS PERCENT AUTO 77.9(H) 43.0 - 75.0 % TBH LYMPHOCYTES PERCENT AUTO 13.6(L) 20.5 - 60.0 % TBH MONOCYTES PERCENT AUTO 6.7 1.7 - 12.0 % TBH TBH EO % 1.0 0.9 - 7.0 % TBH BASOPHILS PERCENT AUTO 0.2 0.2 - 2.0 % TBH IMMATURE GRANULOCYTES PCT AUTO 0.6(H) 0.0 - 0.5 % TBH NEUTROPHILS ABSOLUTE AUTO 6.9(H) 1.4 - 6.5 10 3/uL TBH LYMPHOCYTES ABSOLUTE AUTO 1.2 1.2 - 3.8 10 3/uL TBH MONOCYTES ABSOLUTE AUTO 0.6 0.3 - 0.8 10 3/uL TBH TBH EO # 0.1 0.0 - 0.7 10 3/uL TBH BASOPHILS ABSOLUTE AUTO 0.0 0.0 - 0.1 10 3/uL TBH IMMATURE GRANULOCYTES ABS AUTO 0.05(H) 0.00 - 0.03 10 3/uL TBH 01/08/2025 8:35 AM EDT 01/08/2025 8:39 AM EDT Narrative CLINISYNC - 01/08/2025 8:42 AM EDT us Maria Helder DO CLINISYNC Final Result CLINISYNC TB * ALL BUN (01/08/2025 8:35 AM EDT) [facility] BLOOD UREA NITROGEN 8.0 7.0 - 18.0 mg/dL TBH 01/08/2025 8:35 AM EDT 01/08/2025 8:39 AM EDT Narrative CLINISYNC - 01/08/2025 8:49 AM EDT us Maria Helder DO CLINISYNC Final Result CLINISYNC TBH * (ABNORMAL) TBH URINE MICROSCOPIC ONLY (01/08/2025 8:05 AM EDT) TBH WBC 5-10(A) NONE SEEN #/HPF TBH TBH RBC 2-5(A) 0 - 2 #/HPF TBH BACTERIA URINE MODERATE(A ) NONE SEEN #/HPF TBH MUCUS URINE NONE SEEN NONE SEEN TBH SQUAMOUS EPITHELIAL CELL URINE MODERATE(A ) NONE/RARE #/LPF TBH CRYSTALS SEEN? None Seen None Seen #/HPF TBH CAST SEEN? NONE SEEN NONE SEEN #/LPF TBH URINE CULTURE INDICATED YES-LC TBH 01/08/2025 8:05 AM EDT 01/08/2025 8:47 AM EDT Narrative CLINISYNC - 01/08/2025 9:05 AM EDT us Maria Helder DO CLINISYNC Final Result Performing Organization Address [facility] Co de Phone Number CLINISYNC TBH * (ABNORMAL) TBH UA (CLEAN/CATCH) EXTENSION AGENT/MICRO IF IND. (01/08/2025 8:05 AM EDT) COLOR URINE LT. YELLOW YELLOW TBH CLARITY URINE CLEAR CLEAR TBH SPECIFIC GRAVITY URINE 1.010 1.005 - 1.025 TBH PH URINE 6.5 5.0 - 9.0 TBH PROTEIN URINE NEGATIVE NEG/TRACE mg/dL TBH GLUCOSE URINE UA NEGATIVE NEGATIVE mg/dL TBH BILIRUBIN URINE NEGATIVE NEGATIVE TBH KETONES URINE NEGATIVE NEGATIVE mg/dL TBH BLOOD URINE TRACE-I NEGATIVE TBH NITRITE URINE NEGATIVE NEGATIVE TBH UROBILINOGEN URINE 0.2 0.2 - 1.0 EU/dL TBH LEUKOCYTE ESTERASE URINE TRACE(A) NEGATIVE TBH URINE MICROSCOPIC INDICATED YES TBH 01/08/2025 8:05 AM EDT 01/08/2025 8:47 AM EDT Narrative CLINISYNC - 01/08/2025 9:05 AM EDT us Maria Helder DO CLINISYNC Final Result Performing Organization Address City/[facility]/ZIP Co de Phone Number CLINISYNC TBH * GLUCOSE 1 HOUR (01/06/2025 10:42 AM EDT) GLUCOSE 1 HOUR 124 <130 mg/dL TBH 01/06/2025 10:4 2 AM EDT 01/06/2025 10:43 AM EDT Narrative [facility] - 01/06/2025 11:08 AM EDT us Priscilla SRIVASTAVA LAB BLOOD ORDERABLES Final Resul t [facility] * US OB 14+ weeks anatomy scan (11/21/2024 3:40 PM EST) Anatomical Region Laterality Modality Body Ultrasound 11/21/2024 3:40 PM EST Narrative 11/21/2024 3:40 PM EST THIS EXAM WAS PERFORMED AT [facility] NAME: MARIAN HUSAIN : 1990 SEX: F Accession Number: [id number] ORDERING PHYSICIAN: TOREY MONTGOMERY REFERRING PHYSICIAN: MARIA PENDLETON Coding ----- --------- Procedures [id number]: Ultrasound, uterus, real time with image documentation, and maternal evaluation plus detailed anatomic examination, transabdominal approach;single or first gestation [id number]: Transvaginal Ultrasound (OB) Indication ----- --------- Screening [...] 0 lb 13 oz EFW by Hadlock ([id number]) Head / Face / Neck Biometry: Cephalic index 0.73 5% Nicolaides Scraper Loader Operator 4.4 mm CM 4.2 mm 20% Nicolaides [...] Heart / Thorax RVOT view. LVOT view. [id number]-phprwds view. Bicaval view. Extremities / Left hand. [...] Right choroid plexus cyst is identified. Per [facility] guidelines, isolated chorioid plexus cysts (CPCs) are a normal variant of no clinical importance with no indication for follow-up ultrasound imaging or evaluation in the setting of low risk cell free DNA screening. Double right renal artery identified. Recommendations ----- --------- Please see [facility] documentation from today. The patient is scheduled in four to six week(s) to complete anatomic survey. Subsequent follow up or other follow up as clinically determined by primary OB provider unless otherwise specified by [facility]. Results forwarded to ordering provider so they can follow up with the patient as necessary. The copy-to physician of this order is MARIA Brito The ordering physician of this order is TOREY Pineda Procedure Note Radiology, Radiologist, MD - 11/21/2024 THIS EXAM WAS PERFORMED AT [facility] NAME: MARIAN HUSAIN : 1990 SEX: F Accession Number: [id number] ORDERING PHYSICIAN: TOREY MONTGOMERY REFERRING PHYSICIAN: MARIA PENDLETON Coding ----- --------- Procedures [id number]: Ultrasound, uterus, real time with imagedocumentation, and maternal evaluation plus detailed anatomic examination, transabdominalapproach;single or first gestation [id number]: Transvaginal Ultrasound (OB) Indication ----- --------- Screening [...] 0 lb 13 oz EFW by Hadlock ([id number]) Head / Face / Neck Biometry: Cephalic index 0.73 5% Nicolaides Scraper Loader Operator 4.4 mm CM 4.2 mm 20% Nicolaides [...] Heart / Thorax RVOT view. LVOT view. 8-qtsdlu-lransni view. Bicavalview. Extremities / Left hand. Skeleton [...] Right choroid plexus cyst is identified. Per [facility] guidelines, isolated chorioid plexus cysts (CPCs) are a normalvariant of no clinical importance with no indication for follow-up ultrasound imaging or evaluation in the setting of lowrisk cell free DNA screening. Double right renal artery identified. Recommendations ----- --------- Please see [facility] documentation from today. The patient is scheduled in four to six week(s) to complete anatomicsurvey. Subsequent follow up or other follow up as clinically determined byprimary OB provider unless otherwise specified by MFM. Results forwarded to ordering provider so they can follow up with thepatient as necessary. The copy-to physician of this order is MARIA Brito The ordering physician of this order is TOREY Pineda us Maria Pendleton DO IMG OB US PROCEDURES Final Resul t from Last 3 Months Insurance [employer] [facility] Care Teams Ambulette Driver Relationship Specialty Start Date End Date Sarah Lopez DO [address] [place] [address] Referring Physician Emergency Medicine 02/18/23
[2025-02-09 08:02] VITALS: TEMP 36.3
[2025-02-09 08:03] VITALS: BP 119/66; PULSE 83
== END 2025-02-09 08:55 | disposition home or self-care (01) ==
LOC: FBCO 07:54 → FBC 07:55
PROVIDERS: Visit Provider Obstetrics & Gynecology
DX: O26.893 Other specified pregnancy related conditions, third trimester (principal); Z3A.32 32 weeks gestation of pregnancy
CPT/HCPCS: 59025

== ENCOUNTER 2025-02-12 08:05 | Outpatient (OUT) | payer OTHER, MEDICAID, SELFPAY ==
--- OUTSIDE RECORDS SUMMARY | 2022-11-20 08:27 | XMS_ITS | Continuity of Care Document ---
Author Organization [facility] Address [address] [place] [address] Phone Care Team Providers Care Gas Maker Name Role Phone Dawson Hernandez Unavailable Unavailable Allergies, Adverse Reactions, Alerts Substance Reaction Status Criticality No Known allergies Medications Medication Instructions Dosage Effective Dates (start - stop) Status Comments 10/06 (28) 1 mg-20 mcg tablet take 1 tablet by oral route every day 1.00 tablet - Active Procedures Procedure Date IMMUNIZATION ADMIN FLU VAC NO PRSV 4 LUIS 3 YRS+ PREV VISIT, NEW, AGE 18-39 PREVENTIVE NEW AGE 40-64 [facility] SPECIMEN HANDLING (GC/CHLAMYDIA) 10/06 URINE TEST THIN PREP TIS LIQUID-BASED Thin Prep(R) Imaging System Pap W/Reflex To HR HPV DNA Advance Directives Directive Yes / No Effective Date File Name No Information Encounters Encounter Description Practice Location Reason(s) For Visit Diagnoses Date Provider Providers Copied on Encounter [facility], [address] [place], [place], [id number], [place] tel:[phone] [facility] No Information Nov-0 3 Vida Conrad. [address] [place] [place], [place], [id number] , [place]. tel:[phone] [facility], [address] [place], [place], [address], [place] tel:[phone] [facility] No Information Elinaruchi Dawson. [address] [place], [place], [address] , [place]. tel: [phone] PREV VISIT, NEW, AGE 18-39 [facility], [address] [place], [place], [address], [place] tel:[phone] [facility] establish care (chief complaint)b irth control (chief complaint) Gynecological ExaminationOther specified contraceptive management 4 Prashanth [facility] Maggy. [address] [place], [place], [address] , [place]. tel: [phone] Family History Family Member Type Diagnosis Age At Onset Father Problem (finding) History of Ulcers Father Problem (finding) Heart disease Sister Problem (finding) Alive and well Father Problem (finding) hypertension Father Problem (finding) Alive and well Sister Problem (finding) Alive and well Brother Problem (finding) Alive and well Father Problem (finding) diabetes melli tus in first degree relative Paternal grandfather Problem (finding) stroke Sister Problem (finding) Alive and well Brother Problem (finding) Alive and well Paternal grandfather Problem (finding) Leukemia Maternal grandfather Problem (finding) stroke Brother Problem (finding) Alive and well Mother Problem (finding) Alive and well Sister Problem (finding) Alive and well Immunizations Vaccine Date Status Comments Flulaval/ Fluarix administered Source: Ava nichols Immunization Record Tdap administered Source: Other R egistry Hep B, adolescent or pediatric administer ed Source: Other Registry Hep A, ped/adol, 2 dose administered Sour ce: Other Registry HPV, unspecified formulation administered Source: Other Registry Hep B, adolescent or pediatric administer ed Source: Other Registry HPV, bivalent administered Source: Other Registry meningococcal MCV4P administered Source: Other Registry Tdap administered Source: Other R egistry MMR administered Source: Other R egistry Hep B, adolescent or pediatric administer ed Source: Other Registry Hep A, ped/adol, 2 dose administered Sour ce: Other Registry HPV, bivalent administered Source: Other Registry Payers Payer name Insurance type Covered libertarian ID Authoriza tion(s) [facility] CI [id number] Medicaid Wrap - [facility] [place] [id number] [facility] [id number] Medicaid [place] - [facility] [place] [id number] Social History Type Description Quantity Date Captured Comments Sex Female Smoking Status No Information Sexual Orientation Straight or heterosexual Gender Identity Female Chief Complaint And Reason For Visit No Information Reason For Referral Reason For Referral No Information Plan Of Treatment Date Type Action Status Goal Tdap. Due on due Goal Influenza vaccine. Due on due Goal RLP. Due on due Goal Depression screening. Due on due Goal PAP. Due on due History Of Present Illness Encounter Date Complaint History Of Prese nt Illness No Information Functional Status Date Functional Assessmen t No Information Instructions Date Instruction Additional Infor mation No Information Assessments Type Assessment Date No Information Patient Care Teams Name Effective Dates (start - stop) Status Members No Information
--- OUTSIDE RECORDS SUMMARY | 2025-02-06 00:37 | XMS_ITS | Continuity of Care Document ---
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 Ferritin January 28, 2025 8:32am 43.0 ng/mL 11.0-306.[address] [facility] [id number] [address] [facility] [address] Vitamin B12 Level September 27, 2023 8:34am 446 pg/mL 180-[address] [facility] [id number] [address] [place] [address] Folate November 07, 2024 10:38am 8.1 ng/mL >5.9 Folate reference range: >5.9 ng/mlThe WHO technical consultation on folate and vitamin [id number] has determined that folate concentrations lessthan 4 ng/ml are considered deficient. [facility] [id number] [address] [place] [address] Haptoglobin June 27, 2023 11:32am 184 mg/dL 44-[address] [facility] [id number] [address] [place] [address] Pharmacy Creatinine Clearance (Chem November 07, 2024 10:38am 143.[address] [facility] [id number] [address] [place] [address]990 Pharmacy Creatinine Clearance (Chem February 01, 2025 3:44pm 164.[address] [facility] [id number] [address] [place] [address] 287[address] Serum Immunofixation March 21, 2023 3:56pm See comment . No monoclonality detected. [facility] 00 Copper Level June 27, 2023 11:32am 145 ug/dL 80-158 This test was developed and its performance characteristicsd etermined by [employer]. It has not been cleared orapproved by the Food and Drug Administration. Detection Limit = 5Performed at: [facility] [employer] [id number] Director: Artemio Guillen MD, Phone: [phone] [facility] 00 Immunoglobulin G March 21, 2023 3:56pm 1046 mg/dL [phone] [facility] 00 Immunoglobulin A March 21, 2023 3:56pm 158 mg/dL 87-352 [facility] 00 Immunoglobulin M March 21, 2023 3:56pm 302 mg/dL Above high normal 26-217 Performed at: [facility] [employer] [id number] Director: Alan Macias PhD, Phone: [phone] [facility] 00 Serum Total Protein March 21, 2023 3:56pm 6.5 g/dL 6.0-8.5 [facility] 00 Albumin (Send Out) March 21, 2023 3:56pm 3.6 g/dL 2.9-4.4 [facility] 00 Qxmev-7-Iubwor ins March 21, 2023 3:56pm 0.3 g/dL 0.0-0.4 [facility] 00 Mdlfg-4-Dubpmg ins March 21, 2023 3:56pm 0.8 g/dL 0.4-1.0 [facility] 00 Beta Globulins March 21, 2023 3:56pm 0.7 g/dL 0.7-1.3 [facility] 00 Gamma Globulins March 21, 2023 3:56pm 1.1 g/dL 0.4-1.8 [facility] 00 Protein Electrophoresi s M-Emanuel March 21, 2023 3:56pm Not observed g/dL Not Observed [facility] 00 Globulin (PEP) March 21, 2023 3:56pm 2.9 g/dL 2.2-3.9 [facility] 00 Albumin/Globul in (PEP) March 21, 2023 3:56pm 1.2 0.7-1.7 [facility] 00 Protein Electrophoresi s Note March 21, 2023 3:56pm See comment . Protein electrophoresis scan will follow via computer,mail, or mailing specialist delivery. [facility] 00 Free Normal Light Chains, Quant March 21, 2023 3:56pm 19.2 mg/L 3.3-19.4 [facility] 00 Free Lambda Light Chains, Quant March 21, 2023 3:56pm 14.7 mg/L 5.7-26.3 [facility] 00 Free Normal/Lambda Light Chain Ratio March 21, 2023 3:56pm 1.31 0.26-1.65 Performed at: [address] [id number] Director: Alan Macias PhD, Phone: [phone] [facility] 00 Coronavirus 2019 Clinical Comment 2 February 01, 2025 1:39pm Detected Abnormal (applies to non-numeric results) Not Detecte This is a duplicate RP2.1 COVID (PCR) result to be used for statistical tracking purpose only. [facility] [id number] [address] [place] [address] Microbiology Results Procedure Source Result Collection Date/Time Result Date/Time Result Comment Performing Site Quick Strep (POC) Throat February 01, 2025 11:51am February 01, 2025 11:59am Respiratory Panel (PCR) Nasopharyngeal February 01, 2025 1:39pm February 01, 2025 3:12pm [facility] [id number] [address] [place] [address]156 Group A Streptococcus Screen (CARROLL) Throat February 01, 2025 1:47pm February 01, 2025 2:24pm [facility] [id number] [address] [facility] [address] Vital Signs Vital Reading Result Reference Range Collection Date/Time Height 62 [in_i] November 10, 2024 3:55pm Weight 83.46 kg November 10, 2024 3:55pm Body Temperature 97.8 [degF] 97.6-99.0 November 102024 3:55pm Heart Rate 9 /min 60-100 November 10, 2024 3:55pm Respiratory rate 16 /min -November 102024 3:55pm Oxygen saturation by Pulse oximetry 99 % 95-100 November 10, 2024 3:55pm BP Systolic 121 mm[Hg] 100-140 November 10, 2024 3:55pm BP Diastolic 80 mm[Hg] 60-100 November 10, 2024 3:55pm BMI (Body Mass Index) 33.6 kg/m2 2024 3:55pm Height 62 [in_i] November 10, 2024 3:55pm Weight 83.46 kg November 10, 2024 3:55pm Body Temperature 97.7 [degF] 97.6-99.0 June 10:33am Heart Rate 66 /min 60-90 September 28, 3:34pm Respiratory rate 20 /min 12-September 3:34pm Oxygen saturation by Pulse oximetry 100 % 95-100 September 28, 2023 3 :34pm BP Systolic 119 mm[Hg] 100-140 September 28, 2 024 3:34pm BP Diastolic 79 mm[Hg] 60-100 September 28, 2 024 3:34pm Height 62 [in_i] February 01, 2025 11:47am Weight 89.81 kg February 01, 2025 11:47am Body Temperature 98.2 [degF] 97.6-99.0 February 01, 2 025 11:47am Heart Rate 92 /min 60-100 February 01, 2025 11:47am Respiratory rate 16 /min -February 01, 2 025 11:47am Oxygen saturation by Pulse oximetry 99 % 95-100 February 01, 2025 11:47 am BP Systolic 130 mm[Hg] 100-140 February 01, 2025 11:47am BP Diastolic 80 mm[Hg] 60-100 February 01, 2025 11:47am BMI (Body Mass Index) 36.2 kg/m2 February 012024 11:47am Height 62.5 [in_i] February 01, 2025 1:26pm Weight 89.81 kg February 01, 2025 1:26pm Body Temperature 98.3 [degF] 97.6-99.0 February 01, 2 025 1:26pm Heart Rate 97 /min 60-100 February 01, 2025 4:30pm Respiratory rate 20 /min -February 01, 2 025 4:30pm Oxygen saturation by Pulse oximetry 99 % 95-100 February 01, 2025 4:30p m BP Systolic 132 mm[Hg] 100-140 February 01, 2025 4:30pm BP Diastolic 82 mm[Hg] 60-100 February 01, 2025 4:30pm Advance Directives Advance Directive Response Recorded Date/ Time Advance Directives No October 1:17pm Insurance Providers Guarantor Leandra Valentin Address [address] [place] [id number] Contact Info. Home Phone: Payer Policy Id Coverage Id Subscriber's Name Subscriber Id Effective Date Expiration Date Medicaid [id number] Leandra G Homero [id number] [facility] Medicaid [id number] Leandra G Homero [id number] [facility] Medicaid [id number] Leandra Valentin [id number] Encounters Encounter Location(s) Arrival/Admit Date Discharge/Depart Date Provider(s) Departed Physician/Provi jung Office Visit [facility] Physician [facility] Ambulatory November 10, 2024 3:45pm November 10, 2024 4:39pm Ingrid Esquivel APRN Registered Recurring [facility] Acute November 10, 2024 4:16pm Kelly Hough APRN Departed Clinical [facility] January 28, 2025 8:26am January 28, 2025 8:27am NADYA Connors Departed Physician/Provi jung Office Visit [facility] Physician [facility] [place] February 01, 2025 11:21am February 01, 2025 12:43pm Sergey Sorto APRN Departed Emergency [facility] February 01, 2025 1:22pm February 01, 2025 5:09pm null Recent Diagnosis Onset Date Admit Date Anemia November 10, 2 025 2:45pm Folate deficiency November 10, 2024 2:45pm Iron deficiency anemia due t o chronic blood loss November 10, 2024 2:45pm Vitamin B12 deficiency anemia Fe bruary 2024 2:45pm Iron deficiency anemia due t o chronic blood loss November 10, 2024 3:16pm Headache in February 01, 2025 11:21am Assessments Diagnosis Onset Date Resolution Status Admit Date Anemia acute November 10, 2024 2:45pm Folate deficiency acute Februar 2024 2:45pm Iron deficiency anemia due to chronic blood loss acute October 192024 2:45pm Vitamin B12 deficiency anemia acute November 10, 2 025 2:45pm Iron deficiency anemia due to chronic blood loss acute October 192024 3:16pm Headache in noneactive February 01, 2025 11:21am Plan of Treatment Author Luisa Wick [facility] Authored February 01, 2025 3:04p m ER/OB referral for preeclamp aria work up due to intractable headache with hx of preeclampsia at 31 weeks Author Ingrid Esquivel [facility] Authored November 10, 2024 5:50pm 11/10/2024: Obtain records to assess if she has thalassemia, repeat hemoglobin electrophoresis if records cannot be obtained. Iron deficiency anemia d/t chronic blood loss from heavy menses She has irregular periods that can occur 1-2 times per month, and last 7-10 days each time. She follows with gynecology for endometriosis [...] checked for MRI abnormality and essentially negative. Peripheral smear and MRI images reviewed with Dr. Cobos, who confirms this does not need further work-up at this time Jun 2023 iron studies ok but remains anemic. Paraproteins ok. We discussed previous testing for anemia, thalassemia. She believes she had this done at [facility] in [place] in 2019. We will request these records, and if they are not available, will plan repeat testing including hemoglobin electrophoresis. In the meantime check b12, folate, copper, epo, reticulocytes, haptoglobin, LDH, and christiano testing. Sep 2023 iron studies remain stable/ok. 11/10/2024: Iron studies stable, remains anemic, currently has no menstrual cycles r/t pregancy. Informed to improve nutritional content in her diet. No current rectal bleeding. Obtain results of previous hemoglobin electrophoresis results from [facility] about 5 years ago . If records cant be obtained, repeat hemoglobin electrophoresis before her next visit. B12 deficiency Will initiate weekly B12 injections x 4, then switch to monthly Sep 2023 continue monthly 11/10/2024: She has not received B12 injections since December 2023. We will get a vit B12 level before her next visit Sep 2023 will initiate oral folic acid 1mg daily 11/10/2024: Folate level currently 8.1 currently on vitamin with folate. 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 Phone: 4 [facility] [address] Future Procedures Procedure Name Ordered Date Scheduled Date Oncology Outpatient Referral To: March 21, 2023 3:21pm Oncology Outpatient Referral To: September 28 3:49pm 1 Days Apply O2 via Nasal Cannula 4 L to Maintain SpO2 of >=90% January 03, 2023 2:03pm January 25, 2023 12:00am Apply O2 via Nasal Cannula 4 L to Maintain SpO2 of >=90% January 03, 2023 2:03pm January 31, 2023 12:00am Apply O2 via Nasal Cannula 4 L to Maintain SpO2 of >=90% October 04, 2022 12:23pm October 10, 2022 1:00am Apply O2 via Nasal Cannula 4 L to Maintain SpO2 of >=90% October 04, 2022 12:23pm October 25, 2022 1:00am Apply O2 via Nasal Cannula 4 L to Maintain SpO2 of >=90% October 04, 2022 12:23pm November 01, 2022 1:00am Apply O2 via Nasal Cannula 4 L to Maintain SpO2 of >=90% January 03, 2023 2:03pm February 07, 2023 12:00am Orders Panel Function Communication Order October 13, 2022 11:53am October 13, 2022 11:53am Orders Panel Function Communication Order October 24, 2022 10:20am October 24, 2022 10:20am Orders Panel Function Communication Order January 24, 2023 9:20am January 24, 2023 9:20am Orders Panel Function Communication Order January 26, 2023 2:10pm January 26, 2023 2:10pm Orders Panel Function Communication Order July 24, 2023 3:19pm July 24, 2023 3:19pm Orders Panel Function Communication Order November 05, 2023 10:33am November 05, 2023 10:33am Orders Panel Function Communication Order January 30, 2024 8:42am January 30, 2024 8:42am Orders Panel Function Communication Order April 04, 2024 9:17am April 04, 2024 9:17am Orders Panel Function Communication Order April 23, 2024 4:45pm April 23, 2024 4:45pm Orders Panel Function Communication Order October 17, 2022 12:22pm October 17, 2022 12:22pm Orders Panel Function Communication Order January 26, 2023 2:10pm January 26, 2023 2:10pm Orders Panel Function Communication Order August 07, 2023 5:22pm August 07, 2023 5:22pm Orders Panel Function Communication Order October 10, 2023 9:30am October 10, 2023 9:30am Orders Panel Function Communication Order February 22, 2024 11:48am February 22, 2024 11:48am Orders Panel Function Communication Order March 31, 2024 4:05pm March 31, 2024 4:05pm Complete Blood Count Auto Diff November 10 4:29pm 4 Months Iron and TIBC Profile November 10, 2024 4:29pm 4 Months Ferritin November 10, 2024 4:29pm 4 Mon ths HGB Frac Profile November 11, 2024 3:34pm 4 Mo nths Vit. B12/Folate Profile November 10, 2024 4:33 pm 4 Months Future Medications Future medication information is unavailable Patient Instructions Instruction Admit Date Sore throat in adults COVID-19 - ED discharge instructions February 01, 2025 1:22pm Goals Acute Goals Author Authored Date Maintain/increase activity l evels * Understands factors that may lead to activity intolerance * Helps perform self care activities * Maintains maximum range of motion * Increase/regain muscle mass and strength * Maintains VS WNL during activity * Maintain intact skin integrity Updated: 10/30/2022 [facility] January 25, 2023 8:21am Hospital Discharge Instructions Additional Instructions Follow-up with your primary care doctor or INFANT ROOM TEACHER Return to the ED if develop worsening symptoms or concerns
--- OUTSIDE RECORDS SUMMARY | 2025-02-11 10:50 | XMS_ITS | Encounter Summary ---
Author Organization [facility] Address [address] [place] [address] Care Team Providers Care Community Health Specialist Name Role Phone Sarah Lopez DO Unavailable [phone] Reason for Visit * Reason Comments Routine Visit Encounter Details Date Type Department Care Team (Late st Contact Info) Description 02/11/2025 10:50 AM EDT Routine [facility] OB [address] [facility] [place] [address] Priscilla Warren PA [address] [facility] [address] [place], [facility]11 Third trimester ; 32 weeks gestation of ; Nausea Social History Tobacco Use Types Packs/Day Years [...] Sign Reading Time Taken Comments Blood Pressure 122/78 02/11/2025 10:50 AM EDT Pulse - - Temperature - - Respiratory Rate - - Oxygen Saturation - - Inhaled Oxygen Concentration - - Weight 90.4 kg (199 lb 6.4 oz) 02/11/2025 10:50 AM EDT Height - - Body Mass Index 35.32 02/19/2024 10:46 AM EDT documented in this encounter Progress Notes * Reema Leslie NP - 02/11/2025 10:50 AM EDT Reason for Appointment: Patient ID: Leandra Valentin is a 34 y.o. female who presents for Routine Visit Patient presents today for Return OB appointment. MEDICATIONS Current Outpatient Medications Medication Instructions ondansetron ODT (ZOFRAN-ODT) 4 mg, Oral, Every 6 hours PRN triamcinolone (Kenalog) 0.1 % cream Apply to [...] of thyroid function studies Acid reflux 02/2017 [facility] Alpha thalassemia silent carrier Anemia Endometriosis Fibroid, uterine History of anemia History of hyperthyroidism Hypothyroidism (CMS/HCC) Irregular menses Menometrorrhagia Nontoxic multinodular goiter (CMS/HCC) Overweight (BMI 25.0-29.9) Syncope 06/2016 [facility] Varicella zoster Vitamin [...] Eyes: Negative. Respiratory: Negative. Cardiovascular: Negative. Gastrointestinal: Positive for nausea. Genitourinary: Negative. Musculoskeletal: Negative. Skin: Negative. Neurological: [...] nursing note reviewed. Exam conducted with a presentation specialist present. Vitals: Estimated body mass index is 35.32 kg/m?? as calculated from the following: Height as of 02/19/24: 5' 3 . Weight as of this encounter: 199 lb 6.4 oz. BP: 122/78 Patient's last menstrual period was 06/23/2024. ASSESSMENT & PLAN ICD-10-CM 1. Third trimester Z34.93 POCT urinalysis dipstick manually resulted 2. 32 weeks gestation of Z3A.32 POCT urinalysis dipstick manually resulted 3. Nausea R11.0 ondansetron ODT (Zofran-ODT) 4 MG disintegrating tablet Return OB: Patient presents today for a routine obstetrics appointment. Patient is currently 32w3d . Patient states she is doing well but has complaints of being tired due to current . Patient has verbalizes frequent movement. labor precautions was discussed/given and patient was instructed to perform kick counts three times a day. Orders Placed This Encounter Procedures POCT urinalysis dipstick manually resulted Follow Up: Patient is to return to office in 2 week for routine OB appointment. Patient to begin NST and BPP. Continues to follow up with MFM and has an appointment scheduled today. Reports COVID + last week and continued nausea and is currently out of Zofran. A new prescription for Zofran will be sent to pharmacy. She continues off of work the remainder of and reported noncompliance with MFM. Reviewed Hgb and Hematocrit / PLT results with noted anemia Ferritin and Transferrin results were normal and reviewed with patient today. Will obtain most recent notes from Internal Grinder with diagnosis ofAlpha Thalassemia silent carrier. Documented by Reema Leslie NP on behalf of: Reema Leslie NP documented in this encounter Miscellaneous Notes * Addendum Note - Reema Leslie NP - 02/11/2025 10:50 AM EDTAddended by: REEMA LESLIE on: 02/11/2025 11:14 AM Modules accepted: Orders documented in this encounter Plan of Treatment Upcoming Encounters Date Type Department Care Team (Late st Contact Info) Description 02/24/2025 11:40 AM EDT Routine [facility] OB [address] [facility] [place] [address] Malcolm Pendleton, DO [address] [facility] [place] [address] 11/19/2025 10:50 AM EST Office Visit [facility] [address] [place] [address] SariahKayleigh mares, EMERGENCY MEDICAL DISPATCHER-PLEXIGLAS FORMER [address] [place] [address] documented as of this encounter Procedures Procedure Name Priority Date/Time Associated Diagnosis Comments POCT URINALYSIS DIPSTICK Routine 02/11/2025 11:00 AM EDT Third trimester 32 weeks gestation of documented in this encounter Results * POCT urinalysis dipstick manually resulted (02/11/2025 11:00 AM EDT) Color, UA Yellow Clarity, UA Clear Glucose, UA Negative Negative - 2000(110) ++++ mg/dL Bilirubin, UA Negative Negative - 4(70) +++ mg/dL Ketones, UA Negative Negative - 160(16) ++++ mg/dL Spec Grav, UA 1.025 1 - 1.03 Blood, UA Negative Negative - 50 Hong/mcL pH, UA 7.0 5 - 9 Protein, UA Negative Negative - 2000(20) ++++ mg/dL Urobilinogen, UA 1.0 0.2 - 12 mg/dL Leukocytes, UA Negative Negative - 500+++ Iqra/mcL Nitrite, UA Negative Negative - Positive Urine 02/11/2025 11:0 0 AM EDT Priscilla SRIVASTAVA POINT OF CARE TEST ENTER/EDIT OR DERABLES Final Result documented in this encounter Visit Diagnoses Diagnosis Third trimester state, incidental 32 weeks gestation of Nausea Nausea alone documented in this encounter Care Teams Community Health Specialist Relationship Specialty [place] [address] [place] [address] Referring Physician Emergency Medicine 02/18/23 documented as of this encounter
--- NOTE | 2025-02-12 | US_ITS ---
[facility] [place] [address] Patient Name: LISHA FONSECA MRN: [id number] date: 1990 Sex: F Assigned Patient Location: [facility] Current Patient Location: [facility] Accession/Order Number: [id number] Exam Date: 02/12/2025 09:04 Report Date: 02/12/2025 09:06 At the request of: MARIA HARTLEY DO Procedure: US OB BPP w non-stress BIOPHYSICAL PROFILE: CLINICAL INFORMATION: HISTORY OF LABOR COMPARISON: None There is a single live intrauterine gestation in cephalic presentation. The reported gestational age is 32 weeks 4 days. The heart rate [id number] beats per minute. FINDINGS: TONE: 1 or more episodes of activity extension and flexion of extremity or opening and closing of the hand [Y] 2/2 GROSS BODY MOVEMENTS: 3 or more discrete body or limb movements [Y] 2/2 BREATHING MOVEMENTS: 1 or more episodes of breathing lasting at least 30 seconds [Y] 2/2 VIDA: A single deepest vertical pocket of amniotic fluid greater than 2 cm [Y] 2/2 VIDA: 14.7 cm. This is in normal range. Total score: 8/8 US/US OB BPP w non-stress IMPRESSION: NORMAL BIOPHYSICAL PROFILE. Impression dictated by: Michell Miller M.D. 02/12/2025 9:06 AM Dictation Location: [place] [address] Electronically authenticated by: [id number] Y Date: 02/12/2025 09:06
--- OUTSIDE RECORDS SUMMARY | 2025-02-12 08:07 | XMS_ITS | Encounter Summary ---
Author Organization [facility] Address [id number] [address] [place] [address] Care Team Providers Care Card Placer Name Role Phone No Pcp, No Pcp Primary Care Provider Unavailabl e Encounter Details Date Type Department Care Team (Late Contact Info) Description 12/09/2024 Orders Only Maternal- Medicine at [facility] [address] [place] [address] Natalie Díaz, RN Choroid plexus cyst of [...] Maternal Medicine [place] [address] [place] [address] documented as of this encounter [...] 1 documented in this encounter Care Teams Card Placer Relationship Specialty Start Date End Date No Pcp, [place] [address] PCP - General Family Medicine 02/21/24 documented as of this encounter
--- OUTSIDE RECORDS SUMMARY | 2025-02-12 08:07 | XMS_ITS | Encounter Summary ---
Author Organization [facility] Address [id number] [address] [place] [address] Care Team Providers Care Status Controller Name Role Phone No Pcp, No Pcp Primary Care Provider Unavailabl e Encounter Details Date Type Department Care Team (Late Contact Info) Description 10/10/2024 Abstract Maternal- Medicine at [facility] [address] [place] [address] Torey Barnett MD [address] [place] [address] Social History Tobacco Use Types Packs/Day Years [...] 02/26/2025 2:15 PM EDT Appointment Maternal Medicine [place] [address] [place] [address] documented as of this encounter Procedures Procedure Name Priority Date/Time Associated Diagnosis Comments RUBELLA IGG IMMUNE STATUS Routine 09/11/2024 SYPHILIS TOTAL(UNKNOWN SYPHILIS STATUS) Routine 09/11/2024 documented in this encounter Results * Rubella IGG immune status (09/11/2024) Rubella immune IgG 0.96 (immune) MANUALLY TRANSCRIBED RESULTS us Not In System Ref Prov LAB BLOOD ORDERABLES Larissa l Result Performing Organization Address City/[facility] Co de Phone Number MANUALLY TRANSCRIBED RESULTS * Syphilis Total(Unknown Syphilis Status) (09/11/2024) Syphilis Total non- reactive MANUALLY TRANSCRIBED RESULTS us Not In System Ref Prov LAB BLOOD ORDERABLES Larissa l Result Performing Organization Address City/[facility]/ZIP Co de Phone Number MANUALLY TRANSCRIBED RESULTS documented in this encounter Visit Diagnoses Not on filedocumented in this encounter Care Teams Status Controller Relationship Specialty Start Date End Date No Pcp, [place] [address] PCP - General Family Medicine 02/21/24 documented as of this encounter
--- OUTSIDE RECORDS SUMMARY | 2025-02-12 08:07 | XMS_ITS | Encounter Summary ---
Author Organization [facility] Address [address] [place] [address] Care Team Providers Care Junior Programmer Analyst Name Role Phone Sarah Lopez DO Unavailable [phone] Encounter Details Date Type Department Care Team (Late st Contact Info) Description 01/09/2025 Results Follow-Up [facility] OB [address] [place] [address] Suze Lopez LPN [address] [employer] [address] [place] [id number] Social History Tobacco Use Types Packs/Day Years [...] AM EDT Routine [facility] OB [address] [place] [address] Malcolm Pendleton, DO [address] [facility] [place] [address] 11/19/2025 10:50 AM EST Office Visit [facility] [address] [place] [address] Kayleigh Chung, WET COTTON FEEDER-SYNCHRONIZER [address] [place] [address] documented as of this encounter Visit Diagnoses Not on filedocumented in this encounter Care Teams Junior Programmer Analyst Relationship Specialty Start Date End Date Sarah Lopez DO [address] [place] [address] Referring Physician Emergency Medicine 02/18/23 documented as of this encounter
--- OUTSIDE RECORDS SUMMARY | 2025-02-12 08:07 | XMS_ITS | Clinical Summary ---
Author Organization [facility] Address [address] [place] [address] Care Team Providers Care Operator Name Role Phone Unavailable Primary Care Provider [...] Plan of Treatment Not on file Insurance [facility] [place] Advance Directives * Full Code (Latest Code Status on File) Date Activated Date Inactivated Comments 01/06/2016 3:26 PM 01/10/2016 9:07 PM * Full Code Date Activated Date Inactivated Comments 01/06/2016 12:49 PM 01/06/2016 3:26 PM * Full Code Date Activated Date Inactivated Comments 01/05/2016 8:33 PM 01/06/2016 12:49 PM
--- OUTSIDE RECORDS SUMMARY | 2025-02-12 08:07 | XMS_ITS | Clinical Summary ---
Author Organization [facility] Address [address] [place] [address] Phone Care Team Providers Care Television News Reporter Name Role Phone Yudelka Lopez APRN-CAR AUDIO INSTALLER Primary Care Provider + Social History Tobacco [...] this topic Medical Devices Implanted Type Area Clinical Application Consultant Device Identifier Shelf Expiration Date Model / Serial / Lot Mesh, Softmesh 3 X 6, Flat Case [id number] Implanted:Qty: 1 on 04/03/2022 by Sly Crocker MD MPH Mesh Abdomen DAVOL 05/14/2024 [id number] / / [id number] Description:Converted from [facility] Care Acute. Please see archived information for full log information. Care Teams Television News Reporter Relationship Specialty Start Date End Date Yudelka Lopez, ROOM SERVER-CAR AUDIO INSTALLER [address] [place] [address] PCP - General 01/20/23
--- OUTSIDE RECORDS SUMMARY | 2025-02-12 08:07 | XMS_ITS | Encounter Summary ---
Author Organization [facility] Address [address] [place] [address] Care Team Providers Care Digital Strategist Senior Manager Name Role Phone Sarah Lopez DO Unavailable [phone] Encounter Details Date Type Department Care Team (Late st Contact Info) Description 02/11/2025 Bamboo flowsheet [facility] OB [address] [place] [address] Priscilla Warren PA [address] [place] [address] Dr [place], [place] [address] Social History Tobacco Use Types Packs/Day Years [...] Description 02/24/2025 11:40 AM EDT Routine [facility] OB [address] [place] [address] Malcolm Pendleton [address] [place] [address] 11/19/2025 10:50 AM EST Office Visit [facility] [address] [place] [address] Kayleigh Chung, CABINETMAKER APPRENTICE-MANTEL CRAFTSMAN [address] [place] [address] documented as of this encounter Visit Diagnoses Not on filedocumented in this encounter Care Teams Digital Strategist Senior Manager Relationship Specialty Start Date End Date Sarah Lopez DO [address] [place] [address] Referring Physician Emergency Medicine 02/18/23 documented as of this encounter
--- OUTSIDE RECORDS SUMMARY | 2025-02-12 08:07 | XMS_ITS | Encounter Summary ---
Author Organization [facility] Address [address] [place] [address] Care Team Providers Care Yeast Fermentation Attendant Name Role Phone Sarah Lopez DO Unavailable [phone] Encounter Details Date Type Department Care Team (Late st Contact Info) Description 01/06/2025 Results Follow-Up [facility] OB [address] [place] [address] Suze Lopez LPN [address] [employer] [place] [id number] Social History Tobacco Use Types Packs/Day Years [...] AM EDT Routine [facility] B[facility] OB [address] [place] [address] Malcolm Pendleton DO [address] [facility] [place] [address] 11/19/2025 10:50 AM EST Office Visit [facility] [address] [place] [address] Kayleigh Chung, STRATEGIC PARTNERSHIP MANAGER-ICE CRUSHER [address] [place] [address] documented as of this encounter Visit Diagnoses Not on filedocumented in this encounter Care Teams Yeast Fermentation Attendant Relationship Specialty Start Date End Date Sarah Lopez DO [address] [place] [address] Referring Physician Emergency Medicine 02/18/23 documented as of this encounter
--- OUTSIDE RECORDS SUMMARY | 2025-02-12 08:07 | XMS_ITS | Encounter Summary ---
Author Organization [facility] Address [facility] [id number] [address] [place] [address] Care Team Providers Care Fashion Consultant Selling Name Role Phone No Pcp, No Pcp Primary Care Provider Unavailabl e Encounter Details Date Type Department Care Team (Late Contact Info) Description 12/01/2024 Orders Only Maternal- Medicine at [facility] [address] [place] [address] Natalie Díaz, RN Choroid plexus cyst of [...] Maternal Medicine [place] [address] [place] [address] documented as of this encounter [...] 1 documented in this encounter Care Teams Fashion Consultant Selling Relationship Specialty Start Date End Date No [place]cp[place] [address] PCP - General Family Medicine 02/21/24 documented as of this encounter
--- OUTSIDE RECORDS SUMMARY | 2025-02-12 08:07 | XMS_ITS | Clinical Summary ---
Author Organization [facility] Address [address] [place] [address] Care Team Providers Care Farmer Tree Fruit And Nut Crops Name Role Phone Unavailable Primary Care Provider [...] (2 - Td or Tdap) 01/09/2026 Insurance [facility] [place]
--- OUTSIDE RECORDS SUMMARY | 2025-02-12 08:07 | XMS_ITS | Encounter Summary ---
Author Organization [facility] Address [address] [place] [address] Phone Care Team Providers Care Director Of Photography Name Role Phone Yudelka Lopez Primary Care Provider + Encounter Details Date Type Department Care Team (Late st Contact Info) Description 03/31/2022 Orders Only [facility] [address] [place] [address] Conversion, Onbase Social History Tobacco Use Types [...] filedocumented in this encounter Care Teams Director Of Photography Relationship Specialty Start Date End Date Yudelka Lopez APRN-CNP [address] [place] [address] PCP - General 01/20/23 documented as of this encounter
--- OUTSIDE RECORDS SUMMARY | 2025-02-12 08:07 | XMS_ITS | Encounter Summary ---
Author Organization [facility] Address [address] [place] [address] Care Team Providers Care Slat Grader Name Role Phone Sarah Lopez DO Unavailable [phone] Encounter Details Date Type Department Care Team (Late st Contact Info) Description 01/08/2025 Results Follow-Up [facility] OB [address] [address] Suze Lopez LPN [address] [place] [id number] Social History Tobacco Use Types Packs/Day Years [...] AM EDT Routine [facility] B[facility] OB [address] [facility] [place] [address] Malcolm Pendleton DO [address] [facility] [place] [address] 11/19/2025 10:50 AM EST Office Visit [facility] [address] [place] [address] Kayleigh Chung, DIE FITTER-CONSTRUCTION GRIP [address] [facility] [address] [place] [address] documented as of this encounter Visit Diagnoses Not on filedocumented in this encounter Care Teams Slat Grader Relationship Specialty Start Date End Date Sarah Lopez DO [address] [place] [address] Referring Physician Emergency Medicine 02/18/23 documented as of this encounter
--- OUTSIDE RECORDS SUMMARY | 2025-02-12 08:08 | XMS_ITS | Encounter Summary ---
Author Organization [facility] Address [address] [place] [address] Care Team Providers Care Clip Baker Name Role Phone Sarah Lopez DO Unavailable [phone] Encounter Details Date Type Department Care Team (Late Contact Info) Description 11/10/2024 Abstract [facility] ONC [address] [place] [address] Ingrid Esquivel NP Social History Tobacco Use [...] Routine [facility] BCP OB [address] [place] [phone] Malcolm Pendleton DO [address] [place] [address] 11/19/2025 10:50 AM EST Office Visit [facility] [address] [place] [address] Kayleigh Chung, SALES REPRESENTATIVE DOOR TO DOOR-DRUG INSPECTOR [address] [place] [address] documented as of this encounter Visit Diagnoses Not on filedocumented in this encounter Care Teams Clip Baker Relationship Specialty Start Date End Date Sarah Lopez DO [address] [place] [address] Referring Physician Emergency Medicine 02/18/23 documented as of this encounter
--- OUTSIDE RECORDS SUMMARY | 2025-02-12 08:08 | XMS_ITS | Encounter Summary ---
Author Organization [facility] Address [address] [place] [address] Care Team Providers Care Xerox Machine Assembler Name Role Phone Sarah Lopez DO Unavailable [phone] Encounter Details Date Type Department Care Team (Late st Contact Info) Description 09/15/2024 Abstract [facility] B[facility] OB [address] [place] [address] Malcolm Pendleton DO [facility] [address] [place], [facility]11 Social History Tobacco Use Types Packs/Day Years [...] Routine [facility] BCP OB [address] [place] [address] Malcolm Pendleton DO [facility] [place] [address] 11/19/2025 10:50 AM EST Office Visit [facility] [address] [place] [address] Kayleigh Chung APRN-JEWEL INSPECTOR [address] [place] [address] documented as of this encounter Visit Diagnoses Not on filedocumented in this encounter Care Teams Xerox Machine Assembler Relationship Specialty Start Date End Date Sarah Lopez DO [address] [place] [address] Referring Physician Emergency Medicine 02/18/23 documented as of this encounter
--- OUTSIDE RECORDS SUMMARY | 2025-02-12 08:08 | XMS_ITS | Encounter Summary ---
Author Organization [facility] Address [id number] [address] [place] [address] Care Team Providers Care Pulpwood Contractor Name Role Phone No Pcp, No Pcp Primary Care Provider Unavailabl e Encounter Details Date Type Department Care Team (Late st Contact Info) Description 02/04/2025 Telephone Maternal Medicine [place] [phone] [facility] [address] [place] [address] Josey Valentine Social History Tobacco [...] Miscellaneous Notes * Telephone Encounter - Josey Valentnie - 02/04/2025 9:11 AM EDT This pt [...] 02/26/2025 2:15 PM EDT Appointment Maternal Medicine [place] [phone] [facility] [address] [place] [address] documented as of this encounter Visit Diagnoses Not on filedocumented in this encounter Care Teams Pulpwood Contractor Relationship Specialty Start Date End Date No Pcp, [place] [address] PCP - General Family Medicine 02/21/24 documented as of this encounter
--- OUTSIDE RECORDS SUMMARY | 2025-02-12 08:08 | XMS_ITS | Clinical Summary ---
Author Organization [facility] Healthcare Address [address] [place] [address] Care Team Providers Care Machine Operator Replanter Name Role Phone Sarah Lopez DO Unavailable [phone] Allergies Active Allergy Reactions Criticality Noted Date Comments Cefdinir 08/06/2024 Other Reaction(s): Unknown Reaction Labetalol Other,Shortness of breath,Unknown High 02/07/2023 Other Reaction(s): Dizziness, loopiness, burning sensation in chest Other Reaction(s): Difficulty Breathing Labetalol Hcl Hives Low 02/18/2023 Methimazole 03/11/2023 Other Reaction(s): throat closing Other Reaction(s): anaphylaxis Medications triamcinolone (Kenalog) 0.1 % creamIndications:O ther atopic dermatitis Apply to affected areas, up to twice a day when flared, do not use one the face, groin, or underarms, 30 day supply 180 g 11 11/21/19 25 Active valACYclovir (Valtrex) 500 MG tabletIndications: HSV (herpes simplex virus) infection Take 1 tablet (500 mg) by mouth Daily 30 tablet 12/31/19 25 026 Active ondansetron ODT (Zofran-ODT) 4 MG disintegrating tabletIndications: Nausea Take 1 tablet (4 mg) by mouth every 6 (six) hours if needed for nausea or vomiting 30 tablet 2 02/12/20 25 025 Active metroNIDAZOLE (Flagyl) 500 MG tabletIndications: BV (bacterial vaginosis) Take 1 tablet (500 mg) by mouth in the morning and 1 tablet (500 mg) before bedtime. Do all this for 7 days. Do not drink alcohol while taking this medication. 14 tablet 01/16/20 25 025 ondansetron ODT (Zofran-ODT) 4 MG disintegrating tabletIndications: Nausea Take 1 tablet (4 mg) by mouth every 6 (six) hours if needed for nausea or vomiting 30 tablet 2 02/12/20 25 025 Discontinu ed(Reorder ) Active Problems Problem Noted Date Diagnosed Date 10 weeks gestation of 09/11/2024 First trimester 09/11/2024 Estimated Date of Delivery Comme nts Yes 04/05/2025 Based on Ultraso und Encounters Date Type Department Care Team Description 02/11/2025 10:50 AM EDT Routine [facility] [address] [place] [address] Priscilla Warren PA Third trimester ; 32 weeks gestation of ; Nausea 02/11/2025 Bamboo flowsheet [facility] [address] [place] [address] Priscilla Warren PA 02/04/2025 Telephone [facility] [address] [place] [address] Suze Lopez LPN 01/30/2025 Abstract [facility] [address] [place] [address] Mary Cruz MA 01/28/2025 External Result Encounter [facility] External Department Unsolicited Priscilla Warren PA 01/27/2025 8:30 AM EDT Routine [facility] [address] [place] [address] Maria Pendleton DO Third trimester ; 30 weeks gestation of ; H/O pre-eclampsia in prior , currently ; H/O delivery, currently ; Request for sterilization 01/27/2025 Bamboo flowsheet [facility] [address] [place] [address] Maria Pendleton DO 01/20/2025 Abstract [facility] [address] [place] [address] Maria Pendleton, DO 01/15/2025 Telephone [facility] [address] [place] [address] Christy Cui MA 01/14/2025 11:20 AM EDT Routine [facility] [address] [place] [address] Reema Leslie, JEFFERSON Third trimester ; 28 weeks gestation of 01/14/2025 External Result Encounter [facility] External Department Unsolicited Maria Pendleton, DO 01/14/2025 Abstract [facility] [address] [facility] [place] [address] Maria Pendleton, DO 01/14/2025 Bamboo flowsheet [facility] [address] [place] [address] Reema Leslie, JEFFERSON 01/09/2025 Results Follow-Up [facility] [address] [facility] [place] [address] Suze Lopez, MARKETING TECHNOLOGIST 01/08/2025 Results Follow-Up [facility] [address] [facility] [place] [place] [address] Suze Lopez, MARKETING TECHNOLOGIST 01/08/2025 Telephone [facility] [address] [facility] [place] [place] [address] Suze Lopez, MARKETING TECHNOLOGIST 01/08/2025 Clinisync Result Encounter [facility] External Department Unsolicited Maria Pendleton, DO 01/06/2025 Results Follow-Up [facility] OB [address] [place] [address] Suze Lopez, MARKETING TECHNOLOGIST 01/06/2025 Clinisync Result Encounter [facility] External Department Unsolicited Priscilla Warren PA 12/30/2024 11:10 AM EDT Routine [facility] OB [address] [place] [address] Maria Pendleton, DO Second trimester ; 26 weeks gestation of ; Seen in emergency room; Exposure to STD; HSV (herpes simplex virus) infection 12/30/2024 External Result Encounter [facility] External Department Unsolicited Maria Pendleton, DO 12/30/2024 Bamboo flowsheet [facility] [address] [place] [address] Maria Pendleton, DO 12/29/2024 Abstract [facility] [address] [place] [address] Maria Pendleton, DO 12/23/2024 Telephone [facility] [address] [place] [address] Christy Cui MA 12/17/2024 Abstract [facility] [address] [place] [address] Maria Pendleton, DO 12/02/2024 9:30 AM EDT Routine [facility] [address] [place] [address] Priscilla Warren PA 22 weeks gestation of ; Second trimester ; Diabetes mellitus screening; Tooth pain; Nausea 12/02/2024 Bamboo flowsheet [facility] [address] [place] [address] Priscilla Warren PA 11/24/2024 Abstract [facility] [address] [place] [address] Maria Pendleton, DO 11/21/2024 External Result Encounter [facility] [address] [place] [address] Maria Pendleton, DO 11/20/2024 Telephone [facility] [address] [place] [address] Cristin Perry LPN Prior Authorization 11/19/2024 Telephone [facility] [address] [place] [address] Helder MariaDO 11/18/2024 10:55 AM EST Office Visit [facility] [address] [place] [address] Kayleigh Chung, TRAFFIC CONTROL SPECIALIST-SIGNAL INTEGRITY ENGINEER Acne vulgaris (Primary Dx); Other atopic dermatitis 11/18/2024 Bamboo flowsheet [facility] [address] [place] [address] Kayleigh Chung, TRAFFIC CONTROL SPECIALIST-SIGNAL INTEGRITY ENGINEER 11/18/2024 Travel from Last 3 Months Family [...] Pressure 122/78 02/11/2025 10:50 AM EDT Pulse 83 03/11/2023 9:58 AM EDT Temperature 36.6 C (97.8 F) 03/11/2023 9:58 AM EDT Respiratory Rate - - Oxygen Saturation 99% 03/11/2023 9:58 AM EDT Inhaled Oxygen Concentration - - Weight 90.4 kg (199 lb 6.4 oz) 02/11/2025 10:50 AM EDT Height 160 cm (5' 3 ) 02/19/2024 10:46 AM EDT Body Mass Index 35.32 02/19/2024 10:46 AM EDT Plan of Treatment Upcoming Encounters Date Type Department Care Team (Late st Contact Info) Description 02/24/2025 11:40 AM EDT Routine [facility] [address] [place] [address] Maria Pendleton, DO [address] [facility] [place] [address] 11/19/2025 10:50 AM EST Office Visit [facility] [address] [place] [address] Kayleigh Chung APRN-SIGNAL INTEGRITY ENGINEER [address] [place] [address] Procedures Procedure Name Priority Date/Time Associated Diagnosis Comments POCT URINALYSIS DIPSTICK Routine 02/11/2025 11:00 AM EDT Third trimester 32 weeks gestation of FERRITIN Routine 01/28/2025 8:32 AM EDT TRANSFERRIN [...] 01/08/2025 8:05 AM EDT TBH UA (CLEAN/CATCH) PBX WIRE CHIEF/MICRO IF IND. Routine 01/08/2025 8:05 AM EDT GLUCOSE 1 HOUR Routine 01/06/2025 10:42 AM EDT ALL CBC WITH AUTO DIFF Routine 01/06/2025 10:42 AM EDT RECURRENT VAGINITIS (HTRX) Routine 12/30/2024 3:26 PM EDT POCT URINALYSIS DIPSTICK Routine 12/02/2024 9:32 AM EDT 22 weeks gestation of Second trimester US OB 14+ WEEKS ANATOMY SCAN 11/21/2024 3:40 PM EST from Last 3 Months Results * POCT urinalysis dipstick manually resulted (02/11/2025 11:00 AM EDT) Only the most recent of3 resultswithin the time period is included. Color, UA Yellow Clarity, UA Clear Glucose, UA Negative Negative - 1999(110) ++++ mg/dL Bilirubin, UA Negative Negative - 4(70) +++ mg/dL Ketones, UA Negative Negative - 160(16) ++++ mg/dL Spec Grav, UA 1.025 1 - 1.03 Blood, UA Negative Negative - 50 Hong/mcL pH, UA 7.0 5 - 9 Protein, UA Negative Negative - 1999(20) ++++ mg/dL Urobilinogen, UA 1.0 0.2 - 12 mg/dL Leukocytes, UA Negative Negative - 500+++ Iqra/mcL Nitrite, UA Negative Negative - Positive Urine 02/11/2025 11:0 0 AM EDT us Priscilla SRIVASTAVA POINT OF CARE TEST ENTER/EDIT OR DERABLES Final Result * Transferrin (01/28/2025 8:32 AM EDT) TRANSFERRIN 226 203 - 362 mg/dL 01/28/2025 11:02 AM EDT [facility] Other Topography unknown / Unknown 01/28/2025 8:32 AM EDT 01/28/2025 8:32 AM EDT Priscilla SRIVASTAVA LAB BLOOD ORDERABLES Final Resul t Performing Organization Address [facility] Co de Phone Number [address] [address], [place] [phone] * Ferritin (01/28/2025 8:32 AM EDT) FERRITIN 43.0 11.0 - 306.8 ng/mL 01/28/2025 11:09 AM EDT [facility] Other Topography unknown / Unknown 01/28/2025 8:32 AM EDT 01/28/2025 8:32 AM EDT Priscilla SRIVASTAVA LAB BLOOD ORDERABLES Final Resul t Performing Organization Address [facility] Co de Phone Number [address] [address], [address] [address] * (ABNORMAL) RECURRENT VAGINITIS (HTRX) (01/14/2025 11:52 AM EDT) Only the most recent of2 resultswithin the time period is included. ATOPOBIUM VAGINAE 25.517(A) 19.961 - 24.689 ppm 01/15/2025 7:26 AM EDT [facility] ATOPOBIUM VAGINAE Detected(A) 19.961 - 24.689 ppm 01/15/2025 7:26 AM EDT [facility] BVAB 2,3 (BACTERIAL VAGINOSIS ASSOCIATED BACTERIA 2, 3); MOBILUNCUS SPP 23.796(A) 19.961 - 24.689 ppm 01/15/2025 7:26 AM EDT [facility] BVAB 2,3 (BACTERIAL VAGINOSIS ASSOCIATED BACTERIA 2, 3); MOBILUNCUS SPP Detected(A) 19.961 - 24.689 ppm 01/15/2025 7:26 AM EDT [facility] MARION ALBICANS, PARAPSILOSIS, TROPICALIS 0.000 19.961 - 30.770 ppm 01/15/2025 7:26 AM EDT [facility] MARION ALBICANS, PARAPSILOSIS, TROPICALIS Not Detected 19.961 - 30.770 ppm 01/15/2025 7:26 AM EDT [facility] MARION GLABRATA 0.000 23.000 - 32.138 ppm 01/15/2025 7:26 AM EDT [facility] MARION GLABRATA Not Detected 23.000 - 32.138 ppm 01/15/2025 7:26 AM EDT [facility] MARION KRUSEI 0.000 23.000 - 32.271 ppm 01/15/2025 7:26 AM EDT [facility] MARION KRUSEI Not Detected 23.000 - 32.271 ppm 01/15/2025 7:26 AM EDT [facility] CHLAMYDIA TRACHOMATIS 0.000 23.000 - 31.467 ppm 01/15/2025 7:26 AM EDT [facility] CHLAMYDIA TRACHOMATIS Not Detected 23.000 - 31.467 ppm 01/15/2025 7:26 AM EDT [facility] GARDNERELLA VAGINALIS 0.000 19.961 - 24.689 ppm 01/15/2025 7:26 AM EDT [facility] GARDNERELLA VAGINALIS Not Detected 19.961 - 24.689 ppm 01/15/2025 7:26 AM EDT [facility] MEGASPHAERA (TYPES 1, 2) 0.000 19.961 - 24.689 ppm 01/15/2025 7:26 AM EDT [facility] MEGASPHAERA (TYPES 1, 2) Not Detected 19.961 - 24.689 ppm 01/15/2025 7:26 AM EDT [facility] NEISSERIA GONORRHOEAE 0.000 23.000 - 32.117 ppm 01/15/2025 7:26 AM EDT [facility] NEISSERIA GONORRHOEAE Not Detected 23.000 - 32.117 ppm 01/15/2025 7:26 AM EDT [facility] TRICHOMONAS VAGINALIS 0.000 23.000 - 32.119 ppm 01/15/2025 7:26 AM EDT [facility] TRICHOMONAS VAGINALIS Not Detected 23.000 - 32.119 ppm 01/15/2025 7:26 AM EDT [facility] MYCOPLASMA GENITALIUM 0.000 19.961 - 24.689 ppm 01/15/2025 7:26 AM EDT [facility] MYCOPLASMA GENITALIUM Not Detected 19.961 - 24.689 ppm 01/15/2025 7:26 AM EDT [facility] Tissue 01/14/2025 11:5 2 AM EDT 01/15/2025 2:13 AM EDT us Maria Pendleton DO LAB BLOOD ORDERABLES Final Resul t [facility] [address] [place] [address] * TBH CREATININE (01/08/2025 8:35 AM EDT) Pathologist [facility] CREATININE 0.63 0.55 - 1.02 mg/dL TBH TBH EGFR-AF AFGHAN >60 >=60 mL/min/1.7 3m 2 TBH TBH EGFR-NON AF AFGHAN >60 >=60 mL/min/1.7 3m 2 TBH 01/08/2025 8:35 AM EDT 01/08/2025 8:39 AM EDT Narrative [facility]INIS[facility] - 01/08/2025 8:49 AM EDT us Maria Pendleton DO CL[facility]IS[facility]NC Final Result [facility] * (ABNORMAL) ALL CBC WITH AUTO DIFF (01/08/2025 8:35 AM EDT) Only the most recent of2 resultswithin the time period is included. TB WBC 8.9 4.0 - 11.0 10 3/uL TBH TBH RBC 3.93(L) 4.20 - 5.40 10 6/uL TBH TBH HGB 9.4(L) 12.0 - 16.0 g/dL TBH TBH HCT 30.3(L) 36.0 - 48.0 % TBH TBH MCV 77.1(L) 81.0 - 99.0 fL TBH TBH MCH 23.9(L) 26.7 - 34.0 pg TBH TBH MCHC 31.0 29.9 - 35.2 g/dL TBH TBH RDW 13.4 11.0 - 15.0 % TBH [...] Narrative CLINISYNC - 01/08/2025 8:42 AM EDT Maria Helder DO CLINISYNC Final Result Performing Organization Address [facility]/ZIP Co de Phone Number CL[facility]IS[facility]NC [facility] * ALL BUN (01/08/2025 8:35 AM EDT) BLOOD UREA NITROGEN 8.0 7.0 - 18.0 mg/dL TBH 01/08/2025 8:35 AM EDT 01/08/2025 8:39 AM EDT Narrative CLINISYNC - 01/08/2025 8:49 AM EDT Maria Helder DO CLINISYNC Final Result Performing Organization Address [facility] Co de Phone Number [facility] * (ABNORMAL) TBH URINE MICROSCOPIC [...] Narrative CLINISYNC - 01/08/2025 9:05 AM EDT Maria Helder DO CLINISYNC Final Result Performing Organization Address [facility]/ZIP Co de Phone Number [facility]NC [facility] * (ABNORMAL) TBH UA (CLEAN/CATCH) PBX WIRE CHIEF/MICRO IF IND. (01/08/2025 8:05 AM EDT) COLOR [...] AM EDT 01/08/2025 8:47 AM EDT Narrative CLINISYND - 01/08/2025 9:05 AM EDT us Maria Pendleton DO CLINISYNC Final Result Performing Organization Address [facility] Co de Phone Number CLINISYND TB * GLUCOSE 1 HOUR (01/06/2025 10:42 AM EDT) GLUCOSE 1 HOUR 124 <130 mg/dL TB 01/06/2025 10:4 2 AM EDT 01/06/2025 10:43 AM EDT Narrative CLINISYND - 01/06/2025 11:08 AM EDT Priscilla SRIVASTAVA LAB BLOOD ORDERABLES Final Resul t Performing Organization Address [facility] Co de Phone Number CLINISYND TB * US OB 14+ weeks anatomy scan (11/21/2024 3:40 PM EST) Anatomical Region Laterality Modality Body Ultrasound 11/21/2024 3:40 PM EST Narrative 11/21/2024 3:40 PM EST THIS EXAM WAS PERFORMED AT [facility] NAME: MARIAN HUSAIN : 1990 SEX: F Accession Number: [id number] ORDERING PHYSICIAN: TOREY MONTGOMERY REFERRING PHYSICIAN: MARIA PENDLETON Coding ----- --------- Procedures [id number]: Ultrasound, uterus, real time with image documentation, and maternal evaluation plus detailed anatomic examination, transabdominal approach;single or first gestation [id number]: Transvaginal Ultrasound (OB) Indication ----- --------- Screening [...] 0 lb 13 oz EFW by Hadlock ([id number]) Head / Face / Neck Biometry: Cephalic index 0.73 5% Nicolaides Community Development Coordinator 4.4 mm CM 4.2 mm 20% Nicolaides [...] Heart / Thorax RVOT view. LVOT view. 7-htyaew-fgrwjks view. Bicaval view. Extremities / Left hand. [...] Right choroid plexus cyst is identified. Per [facility] guidelines, isolated chorioid plexus cysts (CPCs) are a normal variant of no clinical importance with no indication for follow-up ultrasound imaging or evaluation in the setting of low risk cell free DNA screening. Double right renal artery identified. Recommendations ----- --------- Please see [facility] documentation from today. The patient is scheduled in four to six week(s) to complete anatomic survey. Subsequent follow up or other follow up as clinically determined by primary OB provider unless otherwise specified by [facility]. Results forwarded to ordering provider so they can follow up with the patient as necessary. The copy-to physician of this order is MARIA Brito The ordering physician of this order is TOREY Pineda Procedure Note Radiology, Radiologist, - 11/21/2024 THIS EXAM WAS PERFORMED AT [facility] NAME: MARIAN HUSAIN : 1990 SEX: F Accession Number: [id number] ORDERING PHYSICIAN: TOREY MONTGOMERY REFERRING PHYSICIAN: MARIA PENDLETON Coding ----- --------- Procedures [id number]: Ultrasound, uterus, real time with imagedocumentation, and maternal evaluation plus detailed anatomic examination, transabdominalapproach;single or first gestation [id number]: Transvaginal Ultrasound (OB) Indication ----- --------- Screening [...] 0 lb 13 oz EFW by Hadlock ([id number]) Head / Face / Neck Biometry: Cephalic index 0.73 5% Nicolaides Community Development Coordinator 4.4 mm CM 4.2 mm 20% Nicolaides [...] Heart / Thorax RVOT view. LVOT view. 5-izghzw-nmoqink view. Bicavalview. Extremities / Left hand. Skeleton [...] Right choroid plexus cyst is identified. Per [facility] guidelines, isolated chorioid plexus cysts (CPCs) [...] Months Insurance [employer] [facility] Care Teams Machine Operator Replanter Relationship Specialty Start Date End Date Sarah Lopez DO [address] [place] [address] Referring Physician Emergency Medicine 02/18/23
--- OUTSIDE RECORDS SUMMARY | 2025-02-12 08:08 | XMS_ITS | Encounter Summary ---
Author Organization [facility] Address [address] [place] [address] Care Team Providers Care Assistant Professor Of Religion Name Role Phone Sarah Lopez DO Unavailable [phone] Encounter Details Date Type Department Care Team (Late st Contact Info) Description 02/04/2025 Telephone [facility] OB [address] [place] [address] Suze Lopez LPN [address] [place] [id number] Social History Tobacco Use Types Packs/Day Years [...] encounter Miscellaneous Notes * Telephone Encounter - Suze Lopez LPN - 02/04/2025 9:15 AM EDT Hi, this is Terri from Maternal Medicine at [facility]. My number is [phone]. We have a mutual patient named Leandra [...] she is not going to come to [place] for 30 minappointment and so that someone had to get her kids. So I wanted to document this. So you know thatshe has canceled and refused to make another appointment are declined again. My phone number is [phone], thank you. FYI for you documented in this encounter Plan of Treatment Upcoming Encounters Date Type Department Care Team (Late st Contact Info) Description 02/24/2025 11:40 AM EDT Routine [facility] [address] [place] [address] Malcolm Pendleton, DO [address] [facility] [place] [address] 11/19/2025 10:50 AM EST Office Visit [facility] [address] [facility] [address] [place] [address] Kayleigh Chung, SHOT BLASTER-RETENTION SPECIALIST [address] [place] [address] documented as of this encounter Visit Diagnoses Not on filedocumented in this encounter Care Teams Assistant Professor Of Religion Relationship Specialty Start Date End Date Sarah Lopez DO [address] [place] [address] Referring Physician Emergency Medicine 02/18/23 documented as of this encounter
--- OUTSIDE RECORDS SUMMARY | 2025-02-12 08:08 | XMS_ITS | Encounter Summary ---
Author Organization [facility] Address [address] [place] [address] [place] [address] Care Team Providers Care Web Page Designer Name Role Phone Sarah Lopez DO Unavailable [phone] Encounter Details Date Type Department Care Team (Late st Contact Info) Description 12/17/2024 Abstract [facility] OB [address] [place] [address] Malcolm Pendleton DO [facility] [address] [place], [facility] Social History Tobacco Use Types Packs/Day Years [...] Routine [facility] OB [address] [place] [address] Malcolm Pendleton DO [facility] [place] [address] 11/19/2025 10:50 AM EST Office Visit [facility] [address] [place] [address] Kayleigh Chung APRN-METAL FILER [address] [place] [address] documented as of this encounter Visit Diagnoses Not on filedocumented in this encounter Care Teams Web Page Designer Relationship Specialty Start Date End Date Sarah Lopez DO [address] [place] [address] Referring Physician Emergency Medicine 02/18/23 documented as of this encounter
--- OUTSIDE RECORDS SUMMARY | 2025-02-12 08:08 | XMS_ITS | Encounter Summary ---
Author Organization [facility] Address [address] [place] [address] [place] [address] Care Team Providers Care Security Consultant Name Role Phone Sarah Lopez DO Unavailable [phone] Encounter Details Date Type Department Care Team (Late st Contact Info) Description 01/30/2025 Abstract [facility] OB [address] [place] [address] Mary Cruz MA Social History Tobacco [...] Routine [facility] B[facility] OB [address] [place] [address] Malcolm Pendleton DO [address] [place], [place] [id number] 11/19/2025 10:50 AM EST Office Visit [facility] [address] [place] [address] Kayleigh Chung APRN-WAREHOUSE RECEIVING SUPERVISOR [address] [place] [address] documented as of this encounter Visit Diagnoses Not on filedocumented in this encounter Care Teams Security Consultant Relationship Specialty Start Date End Date Sarah Lopez DO [address] [place] [address] Referring Physician Emergency Medicine 02/18/23 documented as of this encounter
--- OUTSIDE RECORDS SUMMARY | 2025-02-12 08:08 | XMS_ITS | Encounter Summary ---
Author Organization [facility] Address [address] [place] [address] Care Team Providers Care Geriatrician Name Role Phone Sarah Lopez DO Unavailable [phone] Encounter Details Date Type Department Care Team (Late st Contact Info) Description 11/21/2024 External Result Encounter [facility] OB [address] [place] [address] Maria Pendleton DO [facility] [address], [place] [address] Social History Tobacco Use Types Packs/Day Years [...] AM EDT Routine [facility] B[facility] OB [address] [place] [address] Maria Pendleton DO [facility] [place] [address] 11/19/2025 10:50 AM EST Office Visit [facility] [address] [place] [address] Kayleigh Chung, INDUSTRIAL TWISTING MACHINE OPERATOR-DOFFER [address] [place] [address] documented as of this encounter Procedures Procedure Name Priority Date/Time Associated Diagnosis Comments US OB 14+ WEEKS ANATOMY SCAN 11/21/2024 3:40 PM EST documented in this encounter Results * US OB 14+ weeks anatomy scan (11/21/2024 3:40 PM EST) Anatomical Region Laterality Modality Body Ultrasound 11/21/2024 3:40 PM EST Narrative 11/21/2024 3:40 PM EST THIS EXAM WAS PERFORMED AT [facility] NAME: MARIAN HUSAIN : 1990 SEX: F Accession Number: [id number] ORDERING PHYSICIAN: HENNY MONTGOMERY REFERRING PHYSICIAN: MARIA PENDLETON Coding ----- --------- Procedures 28154: Ultrasound, uterus, real time with image documentation, and maternal evaluation plus detailed anatomic examination, transabdominal approach;single or first gestation 97311: Transvaginal Ultrasound (OB) Indication ----- --------- Screening [...] 0 lb 13 oz EFW by Hadlock ([id number]) Head / Face / Neck Biometry: Cephalic index 0.73 5% Nicolaides Mortgage Broker 4.4 mm CM 4.2 mm 20% Nicolaides [...] Heart / Thorax RVOT view. LVOT view. 3-erwlay-sqethko view. Bicaval view. Extremities / Left hand. Skeleton Maternal Structures ----- --------- Uterus Visualized Cervix Visualized Approach - Transvaginal: Cervical length 4.35 cm Right Ovary Not visualized Left Ovary Not visualized Cul de Sac Visualized. No free fluid visualized Impression ----- --------- Single viable intrauterine consistent with 20w 5d with an MORALSE of 04/05/2025. Transvaginal cervical length measures 4.35 cm. Right choroid plexus cyst is identified. Per [facility] guidelines, isolated chorioid plexus cysts (CPCs) are a normal variant of no clinical importance with no indication for follow-up ultrasound imaging or evaluation in the setting of low risk cell free DNA screening. Double right renal artery identified. Recommendations ----- --------- Please see [facility] documentation from today. The patient is scheduled in four to six week(s) to complete anatomic survey. Subsequent follow up or other follow up as clinically determined by primary OB provider unless otherwise specified by [facility]. Results forwarded to ordering provider so they can follow up with the patient as necessary. The copy-to physician of this order is MARIA Brito The ordering physician of this order is HENNY Pineda Procedure Note Radiology, Radiologist, MD - 11/21/2024 THIS EXAM WAS PERFORMED AT [facility] NAME: MARIAN HUSAIN : 1990 SEX: F Accession Number: [id number] ORDERING PHYSICIAN: HENNY MONTGOMERY REFERRING PHYSICIAN: MARIA PENDLETON Coding ----- --------- Procedures 67878: Ultrasound, uterus, real time with imagedocumentation, and maternal evaluation plus detailed anatomic examination, transabdominalapproach;single or first gestation 61607: Transvaginal Ultrasound (OB) Indication ----- --------- Screening [...] 0 lb 13 oz EFW by Hadlock ([id number]) Head / Face / Neck Biometry: Cephalic index 0.73 5% Nicolaides Mortgage Broker 4.4 mm CM 4.2 mm 20% Nicolaides [...] Heart / Thorax RVOT view. LVOT view. 3-ndadwl-xwicvqm view. Bicavalview. Extremities / Left hand. Skeleton [...] Right choroid plexus cyst is identified. Per [facility] guidelines, isolated chorioid plexus cysts (CPCs) are a normalvariant of no clinical importance with no indication for follow-up ultrasound imaging or evaluation in the setting of lowrisk cell free DNA screening. Double right renal artery identified. Recommendations ----- --------- Please see [facility] documentation from today. The patient is scheduled in four to six week(s) to complete anatomicsurvey. Subsequent follow up or other follow up as clinically determined byprimary OB provider unless otherwise specified by [facility]. Results forwarded to ordering provider so they can follow up with thepatient as necessary. The copy-to physician of this order is MARIA Brito The ordering physician of this order is HENNY Pineda us Maria Pendleton DO IMG OB US PROCEDURES Final Resul t documented in this encounter Visit Diagnoses Not on filedocumented in this encounter Care Teams Geriatrician Relationship Specialty Start Date End Date Sarah Lopez DO [address] [place] [address] Referring Physician Emergency Medicine 02/18/23 documented as of this encounter
--- OUTSIDE RECORDS SUMMARY | 2025-02-12 08:08 | XMS_ITS | Encounter Summary ---
Author Organization [facility] Address [address] [address] Care Team Providers Care Driver License Agent Name Role Phone Sarah Lopez DO Unavailable [phone] Encounter Details Date Type Department Care Team (Late st Contact Info) Description 02/19/2024 Clinisync Result Encounter [facility] External Department Unsolicited Maria Pendleton, DO [address] [place] [address] Social History Tobacco Use Types Packs/Day Years [...] Routine [facility] BCP [place] [address] [place] [address] Maria Pendleton, DO [address] [place] [address] 11/19/2025 10:50 AM EST Office Visit [facility] [address] [place] [address] Kayleigh Chung, ACADEMIC PHYSICIAN-NEWSPAPER MANAGER [address] [place] [address] documented as of this encounter Procedures Procedure Name Priority Date/Time Associated Diagnosis Comments US PELVIS TRANSVAGINAL 02/19/2024 12:27 PM EDT documented in this encounter Results * US PELVIS TRANSVAGINAL (02/19/2024 12:27 PM EDT) Anatomical Region Laterality Modality Other 02/19/2024 12:2 7 PM EDT Narrative 02/19/2024 12:29 PM EDT [address] [address] Ultrasound Report Signed Patient: LISHA VALENTIN MR#: [id number] : 1990 Acct:[id number] Age/Sex: 33 / F ADM Date: 02/19/24 Loc: [facility] Attending Dr: Maria Pendleton D.O. Ordering Physician: Maria Pendleton D.O. Date of Service: 02/19/24 Procedure(s): US pelvis transvaginal Accession Number(s): [id number] cc: Maria Pendleton D.O.; Physician,Non-Staff M.D. The [address] [address] Patient Name: LISHA VALENTIN MRN: [id number] date: 1990 Sex: F Assigned Patient Location: [facility] Current Patient Location: [facility] Accession/Order Number: [id number] Exam Date: 02/19/2024 11:18 Report Date: 02/19/2024 [...] Signed By: 02/19/24 1229 DD/ 1227 TD/TT: Camouflage Specialist: Procedure Note Radiology, Radiologist, MD - 02/19/2024 [place] [address] Ultrasound Report Signed Patient: LISHA VALENTIN GMR#: [id number] : 1990Acct:[id number] Age/Sex: Date: 02/19/24 Loc: [facility] Attending Dr: Maria Pendleton D.O. Ordering Physician: Maria Pendleton D.O. Date of Service: 02/19/24 Procedure(s): US pelvis transvaginal Accession Number(s): [id number] cc: Maria Pendleton D.O.; Physician,Non-Staff MKarlee [address] [address] Patient Name: LISHA VALENTIN MRN: [id number] date: 1990 Sex: F Assigned Patient Location: [facility] Current Patient Location: [facility] Accession/Order Number: [id number] Exam Date: 02/19/2024 11:18 Report Date: 02/19/2024 [...] M.D. Signed By:02/19/24 1229 DD/ 1227 TD/TT: Camouflage Specialist: us Maria Pendleton DO [facility] Final Result documented in this encounter Visit Diagnoses Not on filedocumented in this encounter Care Teams Driver License Agent Relationship Specialty Start Date End Date Sarah Lopez DO [address] [place] [address] Referring Physician Emergency Medicine 02/18/23 documented as of this encounter
--- OUTSIDE RECORDS SUMMARY | 2025-02-12 08:08 | XMS_ITS | Encounter Summary ---
Author Organization [facility] Address [address] [place] [address] Care Team Providers Care Gas Mask Inspector Name Role Phone Sarah Lopez DO Unavailable [phone] Encounter Details Date Type Department Care Team (Late st Contact Info) Description 12/29/2024 Abstract [facility] B[facility] OB [address] [place] [address] Malcolm Pendleton DO [facility] [address], [facility]11 Social History Tobacco Use Types Packs/Day [...] [place] [address] Malcolm Pendleton DO [facility] [place] [address] 11/19/2025 10:50 AM EST Office Visit [facility] [address] [place] [address] Kayleigh Chung APRN-SCHEDULING SPECIALIST [address] [place] [address] documented as of this encounter Visit Diagnoses Not on filedocumented in this encounter Care Teams Gas Mask Inspector Relationship Specialty Start Date End Date Sarah Lopez DO [address] [place] [address] Referring Physician Emergency Medicine 02/18/23 documented as of this encounter
--- OUTSIDE RECORDS SUMMARY | 2025-02-12 08:08 | XMS_ITS | Encounter Summary ---
Author Organization [facility] Address [address] [place] [address] Care Team Providers Care Administrative Support Assoc Name Role Phone Sarah Lopez DO Unavailable [phone] Encounter Details Date Type Department Care Team (Late st Contact Info) Description 11/24/2024 Abstract [facility] BCP OB [address] [place] [address] Malcolm Pendleton DO [facility] [address], [facility]11 Social History Tobacco Use Types Packs/Day [...] Routine [facility] BCP OB [address] [place] [address] Malcolm Pendleton DO [facility] [place] [address] 11/19/2025 10:50 AM EST Office Visit [facility] [address] [place] [address] Kayleigh Chung APRN-CHOPPING MACHINE OPERATOR [address] [place] [address] documented as of this encounter Visit Diagnoses Not on filedocumented in this encounter Care Teams Administrative Support Assoc Relationship Specialty Start Date End Date Sarah Lopez DO [address] [place] [address] Referring Physician Emergency Medicine 02/18/23 documented as of this encounter
--- OUTSIDE RECORDS SUMMARY | 2025-02-12 08:08 | XMS_ITS | Encounter Summary ---
Author Organization [facility] Address [address] [place] [address] Care Team Providers Care Information Technology Program Manager Name Role Phone Sarah Lpoez DO Unavailable [phone] Encounter Details Date Type Department Care Team (Late st Contact Info) Description 01/20/2025 Abstract [facility] BCP OB [address] [place] [address] Malcolm Pendleton DO [facility] [address], [facility]11 Social History Tobacco Use Types Packs/Day Years [...] Routine [facility] BCP OB [address] [place] [address] Malcolm Pendleton DO [facility] [place] [address] 11/19/2025 10:50 AM EST Office Visit [facility] [address] [place] [address] Kayleigh Chung APRN-RECORDIST CHIEF [address] [place] [address] documented as of this encounter Visit Diagnoses Not on filedocumented in this encounter Care Teams Information Technology Program Manager Relationship Specialty Start Date End Date Sarah Lopez DO [address] [place] [address] Referring Physician Emergency Medicine 02/18/23 documented as of this encounter
--- OUTSIDE RECORDS SUMMARY | 2025-02-12 08:08 | XMS_ITS | Clinical Summary ---
Author Organization [facility] Address [id number] [address] [place] [address] Care Team Providers Care Strategic Marketing Manager Name Role Phone No Pcp, No Pcp [...] Care Team Description 02/04/2025 Telephone Maternal Medicine [facility] [address] [place] [address] Josey Valentine 01/28/2025 Orders Only Maternal- Medicine at [facility] [address] [facility] [address] [facility] [place] [address] Marci Coppola, FER Thalassemia alpha carrier (Primary Dx); Family history of sickle cell trait; Family history of DVT; History of anemia; Choroid plexus cyst of fetus affecting care of mother, antepartum, fetus 1; Abnormal genetic test during ; Previous delivery affecting , antepartum; History of pre-eclampsia in prior , currently in first trimester 01/28/2025 Telephone Maternal Medicine [place] [address] [place] [address] Josey Valentine 01/27/2025 9:56 AM EDT - 01/27/2025 11:59 PM EDT Hospital Encounter [facility] - Ultrasound [address] [place] [address] History of anemia Discharge Disposition: Home 01/27/2025 Travel 01/13/2025 9:00 AM EDT - 01/13/2025 11:59 PM EDT Hospital Encounter [facility] - Ultrasound [address] [place] [address] Alpha thalassemia silent carrier Discharge Disposition: Home 01/13/2025 Travel 12/16/2024 8:46 AM EDT - 12/16/2024 11:59 PM EDT Hospital Encounter [facility] - Ultrasound [address] [place] [address] Alpha thalassemia silent carrier Discharge Disposition: Home 12/16/2024 Travel 12/12/2024 9:00 AM EDT Telemedicine Maternal- Medicine at [facility] [address] [place] [address] Torey Montgomery MD Allen, Madeline P, LG Thalassemia alpha carrier (Primary Dx); Abnormal genetic test during ; Family history of sickle cell trait; Family history of DVT 12/12/2024 Travel 12/09/2024 Telephone Maternal- Medicine at [facility] [address] [place] [address] Natalie Daíz RN 12/09/2024 Orders Only Maternal- Medicine at [facility] [address] [place] [address] Natalie Díaz RN Choroid plexus cyst of fetus affecting care of mother, antepartum, fetus 1 12/09/2024 Orders Only Maternal- Medicine at [facility] [address] [place] [address] Natalie Díaz RN Thalassemia alpha carrier (Primary Dx) 12/08/2024 Telephone Maternal- Medicine at [facility] [address] [place] [address] Josey Valentine 12/08/2024 Documentation Maternal- Medicine at [facility] [address] [place] [address] Torey Montgomery MD 12/01/2024 Orders Only Maternal- Medicine at [facility] [address] [place] [address] Natalie Díaz RN Choroid plexus cyst of fetus affecting care of mother, antepartum, fetus 1 11/21/2024 11:00 AM EST Office Visit Maternal- Medicine at [facility] [address] [facility] [place] [address] Torey Montgomery MD Previous delivery affecting , antepartum (Primary Dx); History of pre-eclampsia in prior , currently in first trimester; History of anemia; Choroid plexus cyst of fetus affecting care of mother, antepartum, fetus 1 11/21/2024 9:35 AM EST - 11/21/2024 11:59 PM EST Hospital Encounter [facility] - [facility] [address] [facility] [place] [address] Screening, , for anatomic survey Discharge Disposition: Home 11/21/2024 Orders Only Maternal- Medicine at [facility] [address] [place] [address] Priscilla Haider LPN History of anemia (Primary [...] 02/26/2025 2:15 PM EDT Appointment Maternal Medicine [place] [address] [place] [address] [address] [place] [address] Health Maintenance Due Date Last Done Comments Depression Screening 2004 Adult BMI Follow Up Plan 2010 Influenza Vaccine 05/18/2025 09/01/2021 Adult BMI Screening 11/21/2025 11/21/2024 Tobacco Screening 11/21/2025 11/21/2024 DTaP,Tdap and Td Vaccines (3 - Td or Tdap) 01/09/2026 01/10/2016, 03/22/2009 Pap Smear 10/14/2027 10/14/2024 Medical Devices Not on file Procedures Procedure Name Priority Date/Time Associated Diagnosis Comments [facility] OB FOLLOW-UP, 1 FETUS Routine 01/27/2025 10:46 AM EDT History of anemia US [facility] LMTD OB, 1 OR MORE FETUS Routine 01/13/2025 9:29 AM EDT Alpha thalassemia silent carrier US [facility] LMTD OB, 1 OR MORE FETUS Routine 12/16/2024 9:44 AM EDT Alpha thalassemia silent carrier [facility] COMPREHENSIVE ANATOMIC SURVEY Routine 11/21/2024 11:17 AM EST Screening, , for anatomic survey UNLISTED LAB TEST Routine 11/21/2024 Choroid plexus cyst of fetus affecting care of mother, antepartum, fetus 1 UNLISTED LAB TEST Routine 11/21/2024 Choroid plexus cyst of fetus affecting care of mother, antepartum, fetus 1 from Last 3 Months Results * US [facility] OB FOLLOW-UP, 1 FETUS (01/27/2025 10:46 AM EDT) Only the most recent of4 resultswithin the time period is included. Anatomical Region Laterality Modality OB-TRANSPORTATION SECURITY OFFICER Ultrasound 01/27/2025 10:0 9 AM EDT Narrative 01/27/2025 11:10 AM EDT NAME: MARIAN HUSAIN : 1990 SEX: F Accession Number: [id number] ORDERING PHYSICIAN: TOREY MONTGOMERY REFERRING PHYSICIAN: MARIA HARTLEY Coding ----- --------- Procedures 18095: Follow-up Ultrasound, per fetus [address]: Doppler velocimetry, ; middle cerebral artery Indication [...] Cerebellum tr 36.6 mm 30w 1d 31% Sumner AC 250.6 mm 29w 2d 18% Hadlock Femur 56.7 mm 29w 5d 22% Hadlock Humerus 50.1 mm 29w 2d 27% Osiel HC / AC 1.12 EFW 1,447 g 22% Hadlock EFW (lb) 3 lb EFW (oz) 3 oz EFW by: Hadlock ([id number]) Extended Tibia 48.0 mm 29w 0d 16% Osiel Pig Lead Melter Helper 3.6 mm CM 5.9 mm 19% Nicolaides [...] Heart/Thorax: 4-chamber view. RVOT view. LVOT view. 9-toasib-czesndx view. Situs. Aortic arch view. Bicaval view. [...] PI 1.99 30% [place] RI 0.84 71% [facility] PS 50.72 cm/s PS 1.24 MoM ED [...] HUSAIN : 1990 SEX: F Accession Number: [id number] ORDERING PHYSICIAN: TOREY MONTGOMERY REFERRING PHYSICIAN: MARIA HARTLEY Coding ----- --------- Procedures 16841: Follow-up Ultrasound, per fetus 10159: Doppler velocimetry, ; middle cerebral artery Indication [...] EFW (oz) 3 oz EFW by: Hadlock ([id number]) Extended Tibia 48.0 mm 29w 0d 16% Osiel Pig Lead Melter Helper 3.6 mm CM 5.9 mm 19% Nicolaides [...] Heart/Thorax: 4-chamber view. RVOT view. LVOT view. 4-jqewdd-msxtkin view.Situs. Aortic arch view. Bicaval view. Ductal [...] PI 1.99 30% Ebbing RI 0.84 71% [facility] PS 50.72 cm/s PS 1.24 MoM ED [...] with thepatient as necessary. Torey Montgomery MD [facility] ORDERABLES Final Resul t * Unlisted Lab Test (11/21/2024) Only the most recent of2 resultswithin the time period is included. 11/21/2024 Torey Montgomery MD LAB BLOOD ORDERABLES Final Re sult [employer] from Last 3 Months Insurance [facility] MEDICAID [employer] Care Teams Strategic Marketing Manager Relationship Specialty Start Date End Date No Pcp, [place] [address] PCP - General Family Medicine 02/21/24
--- OUTSIDE RECORDS SUMMARY | 2025-02-12 08:08 | XMS_ITS | Encounter Summary ---
Author Organization [facility] Address [address] [place] [address] Care Team Providers Care Fleet Operations Manager Name Role Phone Sarah Lopez DO Unavailable [phone] Encounter Details Date Type Department Care Team (Late st Contact Info) Description 01/14/2025 Abstract [facility] BCP OB [address] [place] [address] Malcolm Pendleton DO [facility] [address], [facility]11 Social History Tobacco Use Types [...] Routine [facility] BCP OB [address] [place] [address] Malcolm Pendleton DO [facility] [place] [address] 11/19/2025 10:50 AM EST Office Visit [facility] [address] [place] [address] Kayleigh Chung APRN-POWER DRIVEN BRUSH MAKER [address] [place] [address] documented as of this encounter Visit Diagnoses Not on filedocumented in this encounter Care Teams Fleet Operations Manager Relationship Specialty Start Date End Date Sarah Lopez DO [address] [place] [address] Referring Physician Emergency Medicine 02/18/23 documented as of this encounter
--- OUTSIDE RECORDS SUMMARY | 2025-02-12 08:09 | XMS_ITS | Encounter Summary ---
Author Organization [facility] Address [address] [place] [address] Care Team Providers Care Photo Colorer Name Role Phone Sarah Lopez DO Unavailable [phone] Encounter Details Date Type Department Care Team (Late st Contact Info) Description 08/27/2024 Clinisync Result Encounter [facility] External Department Unsolicited Maria Pendleton, DO [address], [facility]11 Social History Tobacco Use Types Packs/Day [...] Routine [facility] BCP OB [address] [place] [address] Maria Pendleton, DO [address], [place] [address] 11/19/2025 10:50 AM EST Office Visit [facility] [address] [place] [address] Sariahvishnu Kayleigh Rowan, TRAFFIC COURT REFEREE-COMMITTEE MEMBER [address] [place] [address] documented as of this encounter Procedures Procedure Name Priority Date/Time Associated Diagnosis Comments US OB TRANSVAGINAL 08/27/2024 4: 27 AM EST documented in this encounter Results * US OB TRANSVAGINAL (08/27/2024 4:27 AM EST) Anatomical Region Laterality Modality Other 08/27/2024 4:27 AM EST Narrative 08/27/2024 4:30 [place] [address] Ultrasound Report Signed Patient: LISHA VALENTIN MR#: [id number] : 1990 Acct:[id number] Age/Sex: 34 / F ADM Date: 08/26/24 Loc: [facility] Attending Dr: Maria Pendleton D.O. Ordering Physician: Maria Pendleton D.O. Date of Service: 08/26/24 Procedure(s): US OB transvaginal Accession Number(s): [id number] cc: Maria Pendleton D.O.; Physician,Non-Staff M.DJorge The [address] [address] Patient Name: LISHA VALENTIN MRN: [id number] date: 1990 Sex: F Assigned Patient Location: [facility] Current Patient Location: Accession/Order Number: [id number] Exam Date: 08/26/2024 08:59 Report Date: 08/27/2024 [...] M.D. Signed By: 08/27/24429 DD/ 6 TD/TT: Geophysical Manager: Procedure Note Radiology, Radiologist, MD - 08/27/2024 [place] [address] Ultrasound Report Signed Patient: LISHA VALENTIN GMR#: [id number] : 1990Acct:[id number] Age/Sex: 34 / FADM Date: 08/26/24 Loc: [facility] Attending Dr: Maria Pendleton D.O. Ordering Physician: Maria Pendleton D.O. Date of Service: 08/26/24 Procedure(s): US OB transvaginal Accession Number(s): [id number] cc: Maria Pendleton D.O.; Physician,Non-Staff M.DJorge The [place] [address] Patient Name: LISHA VALENTIN MRN: [id number] date: 1990 Sex: F Assigned Patient Location: [facility] Current Patient Location: Accession/Order Number: [id number] Exam Date: 08/26/2024 08:59 Report Date: 08/27/2024 [...] Miguel M.D. Signed By:08/27/24429 DD/ 6 TD/TT: Geophysical Manager: us Maria Helder DO [facility] Final Result documented in this encounter Visit Diagnoses Not on filedocumented in this encounter Care Teams Photo Colorer Relationship Specialty Start Date End Date Sarah Lopez DO [address] [place] [address] Referring Physician Emergency Medicine 02/18/23 documented as of this encounter
--- OUTSIDE RECORDS SUMMARY | 2025-02-12 08:09 | XMS_ITS | Encounter Summary ---
Author Organization [facility] Address [address] [place] [address] Care Team Providers Care Bistro Attendant Name Role Phone Sarah Lopez DO Unavailable Encounter Details Date Type Department Care Team (Late st Contact Info) Description 08/26/2024 Abstract [facility] [address] [place] [address] Malcolm Pendleton DO [facility] [address], [facility] Social History Tobacco Use Types [...] Routine [facility] [address] [place] [address] Malcolm Pendleton DO [facility] [place] [address] 11/19/2025 10:50 AM EST Office Visit [facility] [address] [place] [address] Kayleigh Chung APRN-[employer] [address] [place] [address] documented as of this encounter Visit Diagnoses Not on filedocumented in this encounter Care Teams Bistro Attendant Relationship Specialty Start Date End Date Sarah Lopez DO [address] [place] [address] Referring Physician Emergency Medicine 02/18/23 documented as of this encounter
--- OUTSIDE RECORDS SUMMARY | 2025-02-12 08:24 | XMS_ITS | CCD ---
Author Organization [facility] Inform ion Partnership [facility] Care Team Providers Care Wind Development Director Name Role Phone Unknown, Unknown Unavailable Unavailable Yudelka Lopez Unavailable Unavailable Unavailable BETTY Lopez Primary Care Provider [phone] DO Chris Greenwood Emergency Provider [phone] DO Jim Vega Emergency Provider [phone] MD Sly Crocker Attending Provider [phone] DO Frank Silva Emergency Provider BETTY Lopez Attending Provider MD Marvin Serrano Jr Emergency Provider BETTY Lopez Primary Care Provider DO Frank Silva Emergency Provider BETTY Lopez Primary Care Provider [phone] DO Frank Silva Emergency Provider [phone] NADYA Peraza Attending Provider [phone] DO Jim Vega Emergency Provider [phone] BETTY Lopez Primary Care Provider BETTY Lopez Attending Provider BETTY Lopez Referring Provider BETTY Hough Attending Provider MD Dayne Horton Attending Provider BETTY Lopez Primary Care Provider [phone] NADYA Peraza Attending Provider [phone] DO Jim Vega Emergency Provider BETTY Lopez Attending Provider MD Dayne Horton Attending Provider [phone] John, BETTY Paulino Referring Provider BETTY [...] Unavailable ALAN, DR JUDGE Primary Care Unavailable HELEDR ., DR SIFUENTES Attending Unavailable HELDER ., DR SIFUENTES Admitting Unavailable HELDER ., DR SIFUENTES Consulting Unavailable ZIEBER, DR KALPESH Scott Consulting Unavailable HELDER ., DR SIFUENTES Consulting Unavailable HELDER ., DR SIFUENTES Attending Unavailable HELDER ., DR SIFUENTES Admitting Unavailable MISC, DR CAMPUZANO Primary Care Unavailable Dimitris, Jose Unavailable John COLLECTOR OF INTERNAL REVENUE Yudelka Lora Primary Care Provider MD Jose Shanks Attending Provider [phone] MD Dayne Horton Referring Provider John COL[employer]OR [employer] INTERNAL REVENUE Yudelka Lora Primary Care Provider John COL[employer]OR OF INTERNAL REVENUE Yudelka Lora Attending Provider John COL[employer]OR [employer] INTERNAL REVENUE Yudelka Lora Referring Provider BETTY Hough Attending Provider John COL[employer] INTERNAL REVENUE Yudelka Lora Primary Care Provider DO Jim Vega Emergency Provider John COL[employer] INTERNAL REVEN[employer] Yudelka Lora Referring Provider BETTY Hough Attending Provider John [employer]OR [employer] INTERNAL [employer]VEN[employer] Yudelka Lora Referring Provider BETTY Hough Attending Provider Alfie Matthews Primary Care Physician John [employer] Yudelka Lora Primary Care Provider [phone] MD Dayne Horton Attending Provider John [employer] Yudelka Lora Referring Provider BETTY Hough Attending Provider Marvin Fontenot Unavailable John COL[employer]OR [employer]NAL REVENUE Yudelka Lora Referring Provider BETTY Hough Attending Provider John [employer] Yudelka Lora Primary Care Provider [phone] John [employer]NAL REVENUE Yudelka Lora Referring Provider BETTY Hough Attending Provider BETTY Lopez Attending Provider BETTY Lopez Primary Care Provider LopezBETTY Referring Provider [place] COLLECTOR OF INTERNAL REVENUEFamilia Lugo Attending Provider Lex Elizabeth Attending Unavailable Kelly Hough Referring Unavailable Kelly Hough Referring Unavailable Lex Elizabeth Attending Unavailable Manas Simental Attending Unavaila ble BETTY Lopez Primary Care Provider DO Yudelka Doddndra Emergency Provider John HAASN, Yudelka Paulino Primary Care Provider Yousif GOLDBERG Sarah Emergency Provider Marvin Serrano MD Emergency Provider Julián Naqvi MD Admit Provider Julián Naqvi MD Attending Provider [phone] John GOLDBERG, Sarah Unavailable [phone] Malcolm Pendleton DO Attending Provider [phone] Yudelka Lopez APRN Referring Provider Kelly Hough APRN Attending Provider Alfie Matthews MD Primary Care Provider [phone] No Pcp, No Pcp Primary Care Provider Unavailabl e No Pcp, No Pcp Primary Care Provider Unavailabl e HELDER, MALCOLM R Referring Unavailable NO PCP, NO PCP Primary Care Unavailable HENNY MONTGOMERY Attending Unavailable HELDER, MALCOLM R Referring Unavailable NO PCP, NO PCP Primary Care Unavailable HELDER, MALCOLM R Referring Unavailable NO PCP, NO PCP Primary Care Unavailable PRISCILLA WARREN Attending Unavailable HELDER, MALCOLM Attending Unavailable NARESH CHUNG Attending Unavailable PRISCILLA WARREN Attending Unavailable HELDER, MALCOLM Attending Unavailable REYNOLD LESLIE Attending Unavailable HELDER, MALCOLM Attending Unavailable HELDER, MALCOLM Attending Unavailable HELDER, MALCOLM Attending Unavailable JANETTE ACKEMRAN Attending Unavailable NO PCP, NO PCP Primary Care Unavailable HELDER, MALCOLM R Referring Unavailable NO PCP, NO PCP Primary Care Unavailable HELDER, MALCOLM R Referring Unavailable NO PCP, NO PCP Primary Care Unavailable HELDER, MALCOLM R Referring Unavailable NO PCP, NO PCP Primary Care Unavailable John [employer]OR [employer], Yudelka Paulino Referring Provider Kelly Hough APRN Attending Provider Alfie Matthews MD Primary Care Provider Priscilla Warren PA-C Attending Provider NO FAMILY, PHYSICIAN Primary Care Provider Unava ilable Alfie Matthews Primary Care Unavailable Kelly Hough Admitting Unavail able Kelly Hough Attending Unavail able Yudelka Lopez Referring Unavailable Helder, Malcolm Attending Unavailable Helder, Malcolm Admitting Unavailable NO FAMILY, PHYSICIAN Primary Care Unavailable Priscilla Warren Admitting Unavailable Priscilla Warren Attending Unavailable Driss, Julián Admitting Unavailab le Julián Naqvi Attending Unavailab Yudelka Ledesma Primary Care Unavailable Driss, Julián Admitting Unavailab Julián Champagne Attending Unavailab Tam Carrera Unavailable John, Yudelka Lora Primary Care Unavailable Jim Vega Admitting Unavailable Jim Vega Attending Unavailable Yudelka Lopez Lora Primary Care Unavailable Yudelka Lopez Primary Care Unavailable Sarah Dodd Admitting Unavailable Sarah Dodd Attending Unavailable Allergies Allergy Classification Reported Allergen(s) Allergy Type Date of Onset Reaction(s) Facility (6 sources) Albuterol; Translations: [albuterol] Drug Allergy [facility] Work Phone: (20 sources) Labetalol; Translations: [Labetalol] Drug Allergy 2 Shortness of breath, Unknown, Other [facility] (10 sources) THYROID MEDICATION Allergy to substance 3 Rash [facility] (8 sources) methIMAzole; Translations: [METHIMAZOLE] Drug Allergy 4 anaphylaxis [facility] Repository (13 sources) methIMAzole Drug Allergy 5 anaphylaxis [employer] Other (18 sources) cefdinir; Translations: [CEFDINIR] Drug Allergy 4 Unknown, Unknown Reaction [facility] (20 sources) Labetalol; Translations: [LABETALOL HCL] Drug Allergy 3 Hives [facility] (20 sources) methIMAzole Drug Allergy 3 [facility] (20 sources) cefdinir Drug Allergy 4 [facility] (1 source) cefdinir Drug Allergy 5 [facility] Repository (1 source) methIMAzole Drug Allergy 5 [facility] Repository Medications Current Medications Medication Drug Class(es) Dates Sig (Normalized) Sig (Original) acetaminophen 325 mg / HYDROcodone bitartrate 5 mg oral tablet (3 sources) Opioid Agonist Start: 12-30-2024 End: 01-04-2025 take 1 tablet by mouth every six hours for pain HYDROcodone-acetam inophen ([place]) 5-325 MG tablet Indications: HSV (herpes simplex virus) infection Take 1 tablet by mouth every 6 (six) hours if needed for moderate pain or severe pain for up to 5 days 20 tablet 12/30/2024 01/04/2025 Active All Day Allergy 10 mg oral tablet (2 sources) Start: 11-19-2020 take 1 tablet by mouth once daily All Day Allergy 10 mg oral tablet 10 mg = 1 tab(s), Oral, Daily, # 30 tab(s), Refills(s) 0, [facility]acy: [facility] [address], [address], cm, 11/19/20 19:36:00 EST, Height/Length Dosing, 77, kg, 11/19/20 19:36:00 EST, Weight Dosing Start Date: 11/19/20 Status: Ordered azithromycin 500 mg oral tablet (2 sources) Macrolide Antimicrobial Start: 12-30-2024 End: 12-30-2024 take 2 tablets by mouth once azithromycin (Zithromax) 500 MG tablet Indications: Exposure to STD Take 2 tablets (1,000 mg) by mouth 1 time for 1 dose 2 tablet 12/30/2024 12/30/2024 Active benzoyl peroxide 0.05 mg/mg topical gel (2 [...] supply 60 g 11/18/2024 Active Start: 11-18-2024 clindamycin (C lindagel) 1 % gel Indications: Acne vulgaris Apply thin layer to face, once daily in the morning, 30 day supply 60 g 11/18/2024 Active ergocalciferol 1.25 mg oral capsule (2 sources) Provitamin D2 Compound Vitamin D (Ergocalciferol) 1.25 MG (14473 UT) Oral for 28 Days Active fluticasone 0.05 mg/inh Nasal [place] (2 sources) Start: 021 take 2 spray(s) nasal route once daily fluticasone 0.05 mg/inh Nasal [place] 2 spray(s), Nasal, Daily, 16 gram, Refill(s) 0, each nostril, [facility], 158, cm, 11/19/20 19:36:00 EST, Height/Length Dosing, 77, kg, 11/19/20 19:36:00 EST, Weight Dosing Start Date: 11/19/20 Status: Ordered labetalol hydrochloride 100 mg oral tablet (10 sources) beta-Adrenergic Marbin take 1 tablet by mouth twice daily labetalol (NORMODYNE) 100 mg tablet Take 100 mg by mouth 2 (two) times a day. Active levonorgestrel 0.984692 mg/hr intrauterine system (3 sources) Progestin, Progestin-containing Intrauterine Device End: 024 Levonorgestrel (Mirena, 52 MG,) 20 MCG/DAY intrauterine device by Intrauterine route 08/26/2024 Discontinued (Other) magnesium oxide 400 mg oral tablet (20 sources) Start: End: take 1 tablet by mouth once daily magnesium oxide (Mag-Ox) 400 MG tablet Indications: Other headache syndrome Take 1 tablet (400 mg) by mouth Daily 30 tablet 6 11/04/2024 12/04/2024 Active [place] (No Known Home Meds) (2 sources) Start: [place] (No Known Home Meds) Active November 24, 2023 1:00am Start: 06-27-2023 [place] (No Kn own Home Meds) Active June 27, 2023 12:00am ondansetron 4 mg disintegrating oral tablet (20 sources) Serotonin-3 Receptor Antagonist Start: 02-11-2025 End: 03-13-2025 take 1 tablet by mouth every six hours as needed for nausea and vomiting and nausea and nausea ondansetron ODT (Zofran-ODT) 4 MG disintegrating tablet Indications: Nausea Take 1 tablet (4 mg) by mouth every 6 (six) hours if needed for nausea or vomiting 30 tablet 2 02/11/2025 03/13/2025 Active Start: 08-08-2024 End: 11-04-2024 take 1 tablet by mouth every eight hours as needed ondansetron ODT (Zofran-ODT) 4 MG disintegrating tablet Take 4 mg by mouth every 8 (eight) hours if needed 08/08/2024 11/04/2024 Discontinued Start: 08-08-2024 End: 01-01-2025 take 1 tablet by mouth every six hours as needed for nausea and vomiting and nausea and nausea ondansetron ODT (Zofran-ODT) 4 MG disintegrating tablet Indications: Nausea Take 1 tablet (4 mg) by mouth every 6 (six) hours if needed for nausea or vomiting 30 tablet 2 12/02/2024 01/01/2025 Active Start: 07-14-2024 End: 08-08-2024 take 1 tablet by mouth every eight hours as needed for nausea and vomiting Ondansetron Hcl 4 mg tablet Discontinued 4 MG PO Q8H as needed for nausea and vomiting August 07, 2024 1:00am August 08, 2024 3:14pm Start: 09-24-2023 End: 11-24-2023 take 1 tablet by mouth once daily Ondansetron 4 mg Tablet,Disintegrating Discontinued 4 MG PO Daily September 28, 2023 3:54pm November 24, 2023 8:54am Start: 10-02-2022 End: 01-02-2023 take 1 tablet by mouth once daily Ondansetron Hcl 4 mg Tablet Discontinued 4 MG PO Daily October 02, 2022 1:00am January 02, 2023 10:30am Start: 07-04-2022 End: 09-21-2022 take 1 tablet by mouth every six hours as needed for nausea and vomiting Ondansetron 4 mg tablet,disintegrating Discontinued 4 MG PO Q6H as needed for nausea and vomiting July 04, 2022 12:00am September 21, 2022 [...] tablet,disintegrating Discontinued 8 MG PO Daily April 04, 2022 12:00am June 01, 2022 1:31am ondansetron (ZOF RAN) 8 mg tablet Take by mouth every 8 (eight) hours as needed for nausea or vomiting. Active pantoprazole 40 mg delayed release oral tablet (2 sources) Proton Pump Inhibitor Pantoprazole Sodium 40 MG Oral for 30 Days Active permethrin 50 mg/ml topical cream (1 source) Pyrethroid Start: 06-04-20 23 Permethrin 5 % 1 application from head to toe Externally apply tonight, then apply again in 14 days for 2 days May, Active polysaccharide iron complex 391 mg oral capsule (3 sources) Start: 09-15-20 24 End: 10-15-19 25 take 1 capsule by mouth once daily [...] days May, Active 25/iron fum/folic/dha (-1 ORAL) (10 sources) take 1 tablet by mouth once daily 25/iron fum/folic/dha (-1 ORAL) Take 1 tablet by mouth daily. Active Multivitamins with Folic Acid 1 mg and Docusate oral kit (2 sources) Start: 05-28-20 Multivitamins with Folic Acid 1 mg and Docusate oral kit Oral, Daily, Refill(s) 0, Prophylaxis Start Date: 05/28/19 Status: Ordered Vit No.108-Xgrl-Ovpax ( Vitamin) 27 mg iron- 800 mcg Tablet (2 sources) Start: 08-08-20 24 take 1 tablet by mouth once daily Vit No.673-Abgf-Kvkem ( Vitamin) 27 mg iron- 800 mcg Tablet Active 1 TAB PO Daily August 08, 2024 1:00am Start: 08-08-2024 take 1 tablet by shantel th once daily Vit No.305-Hwmh-Bdljd ( Vitamin) 27 mg iron- 800 mcg Tablet Active 1 TAB PO Daily August 08, 2024 12:00am terconazole 4 mg/ml vaginal cream (3 sources) Azole Antifungal Start: 12-23-2024 End: 12-30-2024 terconazole (Terazol 7) 0.4 % vaginal cream Indications: Yeast infection Insert 1 applicator into the vagina at bedtime for 7 days 45 g 12/23/2024 12/30/2024 Active triamcinolone acetonide 1 mg/ml topical cream (19 sources) Corticosteroid Start: 11-20-2024 triamcinolone (Kenalog) 0.1 % cream Indications: Other atopic dermatitis Apply to affected areas, up to twice a day when flared, do not use one the face, groin, or underarms, 30 day supply 180 g 11 11/20/2024 Active Start: 11-18-2024 triamcinolone (Kenalog) 0.1 % cream Indications: Other atopic dermatitis Apply to affected areas, up to twice a day when flared, do not use one the face, groin, or underarms, 30 day supply 454 g 11 11/18/2024 Active Start: 11-18-2024 triamcinolone (Kenalog) 0.1 % cream Indications: Other atopic dermatitis Apply to affected areas, up to twice a day when flared, do not use one the face, groin, or underarms, 30 day supply 454 g 11 11/18/2024 Active valACYclovir 500 mg oral tablet (16 sources) Herpesvirus Nucleoside Analog DNA Polymerase Inhibitor, Herpes Simplex Virus Nucleoside Analog DNA Polymerase Inhibitor, Herpes Zoster Virus Nucleoside Analog DNA Polymerase Inhibitor Start: 12-30-2024 End: 12-25-2025 take 1 tablet by mouth once daily valACYclovir (Valtrex) 500 MG tablet Indications: HSV (herpes simplex virus) infection Take 1 tablet (500 mg) by mouth Daily 30 tablet 11 12/30/2024 12/25/2025 Active 24 hr venlafaxine 37.5 mg extended [...] Drug Class(es) Dates Sig (Normalized) Sig (Original) [id number] 200 actuat albuterol 0.09 mg/actuat metered dose [...] for Shortness Of Breath October 02, 2022 1:00am February 06, 2023 9:17am amitriptyline hydrochloride 25 mg oral tablet (20 sources) Tricyclic Antidepressant Start: 09-24-2023 End: 11-16-2023 take 1 tablet by mouth once daily at bedtime Amitriptyline 25 mg Tablet Discontinued 25 MG PO Daily at bedtime September 24, 2023 1:00am November 16, 2023 6:40pm Start: 10-02-2022 End: 01-02-2023 take 1 tablet [...] 2020 10:36am Start: 12-15-2018 End: 01-26-2019 take 1 capsule [...] release (DR/EC) Discontinued 81 MG PO Daily March 01, 2019 12:00am December 11, 2019 9:47pm celecoxib 100 mg oral capsule (1 source) Nonsteroidal Anti-inflammatory Drug Start: 03-27-2022 take 1 capsule by mouth twice daily as needed Celecoxib 100 MG Oral Capsule TAKE 1 CAPSULE TWICE DAILY NEEDED. Quantity: 30 Refills: 0 Ordered: 27-Mar-2022 Obi LAWLER, Sly Start : 27-Mar-2022 Active cephalexin 500 mg oral capsule (20 sources) Cephalosporin Antibacterial Start: 04-05-2019 End: 06-08-2019 take 1 capsule by mouth every twelve hours Cephalexin (Keflex) 500 mg capsule Discontinued 500 MG PO Q12H April 05, 2019 12:00am June 08, 2019 9:05am ciprofloxacin 3 mg/ml ophthalmic solution (20 sources) Quinolone Antimicrobial Start: 06-14-2020 End: 08-17-2020 take 4 drop(s) into the eye(s) twice daily Ciprofloxacin Hcl 0.3 % drops Discontinued 0 EYE-BOTH .COMPLEX June 14, 2020 [...] for muscle spasm 21 November 16, 2023 1:00am November 24, 2023 8:54am Start: 12-15-2018 End: 01-26-2019 take 1 tablet by mouth three times daily as needed for muscle spasms Cyclobenzaprine 10 mg tablet Discontinued 10 MG PO Three times daily as needed for muscle spasm December 15, 2018 12:00am January 26, 2019 1:54pm docusate sodium 100 mg oral capsule (20 sources) Start: 06-01-2022 End: 09-21-2022 take 1 capsule by mouth twice daily Docusate Sodium (Colace) 100 mg capsule Discontinued 100 MG PO Twice daily June 01, 2022 12:00am September 21, 2022 1:06pm doxycycline hyclate 100 mg oral capsule (20 sources) Tetracycline-cla ss Drug Start: 01-26-2019 End: 03-01-2019 take 1 capsule by mouth twice daily Doxycycline Hyclate 100 mg capsule Discontinued 100 MG PO Twice daily January 26, 2019 12:00am March 01, 2019 11:43am Norgestimate-Ethiny l Estradiol (20 sources) Progestin, Estrogen [...] Tablet Discontinued 325 MG PO Daily December 15, 2018 12:00am March 01, 2019 11:45am fluticasone (20 sources) Corticosteroid Start: 09-24-2023 End: [...] 02, 2022 1:00am February 06, 2023 9:17am Fluticasone Propionate 50 mcg/actuation Blister With Device (3 sources) Start: 09-24-2023 End: 11-16-2023 Fluticasone Propionate 50 mcg/actuation Blister With Device Discontinued 1 INH INHALATION Daily September 24, 2023 1:00am November 16, 2023 6:40pm Start: 09-24-2023 End: 11-16-2023 Fluticasone Propionate 50 mc g/actuation Blister With Device Discontinued 1 INH INHALATION Daily September 24, 2023 12:00am November 16, 2023 5:40pm folic acid 1 mg oral tablet (12 sources) Start: 09-28-2023 End: 11-24-2023 take 1 tablet by mouth once daily Folic Acid 1 mg Tablet Discontinued 1 MG PO Daily September 28, 2023 3:52pm November 24, 2023 8:54am hydrocortisone acetate 25 mg rectal suppository (11 sources) Corticosteroid Start: 02-06-2023 End: 06-27-2023 Hydrocortisone Acetate (Anusol-Hc) 25 mg suppository Discontinued 25 MG KS Daily 08 30February 06, 2023 12:00am June 27, 2023 10:32am hydrocortisone acetate 10 mg/ml / pramoxine hydrochloride 10 mg/ml rectal foam (20 sources) Corticosteroid Start: 06-01-2022 End: 09-21-2022 Hydrocortisone-Pram oxine (Proctofoam Hc) 1-1 % foam Discontinued 1 APPLIC KS Three times daily 06 23June 01, 2022 12:00am September 21, 2022 1:06pm ibuprofen 600 mg oral tablet (20 sources) Nonsteroidal Anti-inflammatory Drug Start: 12-15-2018 End: 03-01-2019 take 1 tablet by mouth every six hours as needed for headache Ibuprofen 600 mg tablet Discontinued 600 MG PO Q6H as needed for Headache December 15, 2018 12:00am March 01, 2019 11:44am Start: 01-08-2018 End: 11-26-2018 take 1 tablet by mouth every eight hours Ibuprofen 600 mg tablet Discontinued 600 MG PO Q8H January 08, [...] Not-Taking Start: 03-02-2020 take 1 capsule by [facility] once daily linaclotide 145 mcg oral capsule 145 microgram = 1 cap(s), Oral, Daily, # 30 cap(s), Refills(s) 0, Pharmacy: [facility], 158, cm, 03/02/20 13:33:00 EDT, Height/Length Measured, 79.9, kg, 03/02/20 13:33:00 EDT, Weight Measured Start Date: 03/02/20 Status: Ordered methylPREDNISolone 4 mg oral tablet (5 sources) Corticosteroid Start: 11-16-2023 End: 11-24-2023 take 1 tablet by mouth once Methylprednisolone (Medrol (Sundar)) 4 mg tablets,dose pack Discontinued 0 PO per package directions November 16, 2023 1:00am November 24, 2023 8:54am orally per package directions; PO PER PKG DIR for 6 days metoclopramide 10 mg oral tablet (20 sources) Dopamine-2 Receptor Antagonist Start: 08-26-2024 End: [...] 5 MG Oral for 5 Days Active oxyCODONE hydrochloride 5 mg oral tablet (20 sources) Opioid Agonist Start: 04-04-2022 End: 06-01-2022 take 1 tablet by mouth every six hours Oxycodone 5 mg tablet Discontinued 5 MG PO Q6H April 04, 2022 12:00am June 01, 2022 1:31am PARoxetine hydrochloride 20 mg oral tablet (20 sources) Serotonin Reuptake Inhibitor Start: 01-08-2018 End: 11-26-2018 Paroxetine Hcl 20 mg tablet Discontinued TABLET January 08, 2018 12:00am November 26, 2018 10:27pm Start: 01-08-2018 End: 11-26-2018 Paroxetine Hcl Discontinued TABLET January 08, 2018 12:00am November 26, 2018 10:27pm Pnv,Calcium 94-Fplv-Dblxd Ac id ( Vitamin Plus Low Iron) 27 mg iron- 1 mg tablet (20 sources) Start: 03-01-2019 End: 12-11-2019 Pnv,Calcium 40-Iyju-Musfj Ac id ( Vitamin Plus Low Iron) 27 mg iron- 1 mg tablet Discontinued 27 MG PO Daily February 28, 2019 11:00pm December 11, 2019 8:47pm Start: 03-01-2019 End: 12-11-2019 Pnv,Calcium 81-Edup-Folya Ac id ( Vitamin Plus Low Iron) [...] as needed for Nausea January 26, 2019 12:00am March 01, 2019 11:43am Start: 11-02-2017 End: 01-08-2018 take 3 tablets by mouth once daily as needed for nausea and vomiting, then take 1 tablet by mouth every four hours at dinner as needed for nausea and vomiting Promethazine 12.5 mg tablet Discontinued 12.5 MG PO Q6H as needed for nausea and vomiting November 02, 2017 1:00am January 08, 2018 12:49am for 3 doses per day; do not administer 3 rd daily dose after evening meal or within 4 hours of bedtime propylthiouracil 50 mg oral tablet (13 sources) Thyroid Hormone Synthesis Inhibitor Start: 02-06-2023 End: 06-27-2023 take 1 tablet by mouth once daily Propylthiouracil 50 mg tablet Discontinued 50 MG PO Daily February 06, [...] Start: 06-01-2022 take 8 [oz_av] by [facility] twice daily Psyllium Seed (Sugar) (Metamucil (Sugar) Oral Powder) powder Active 1 TBSP PO Twice daily May 31, 2022 11:00pm mix into at least 8 oz of water or juice before administering Start: 06-01-2022 take 8 [oz_av] by [facility] twice daily Psyllium Seed (Sugar) (Metamucil (Sugar) Oral Powder) powder Active 1 TBSP PO Twice daily June 01, 2022 12:00am mix into at least 8 oz of water or juice before administering Problems Active Problems Problem Classification Problem Date Documented Da te Episodic/Chronic Adjustment disorders (3 sources) Grief finding; Translations: [Adjustment disorder with depressed mood] Onset: 08-06-2024 08-07-2024 Chronic Administrative/social admission (2 sources) Seen in department; Translations: [Persons encountering health services in other specified circumstances] 12-30-2024 Episodic Allergic reactions (2 sources) Atopic dermatitis; Translations: [Other atopic dermatitis] 11-18-2024 Chronic Cancer of cervix (1 source) Cervical intraepithelial neoplasia grade 1; Translations: [Low grade squamous intraepithelial lesion on cytologic smear of cervix (LGSIL)] 11-04-2024 Episodic Contraceptive and procreative management (2 sources) Sterilization requested; Translations: [Encounter for sterilization] 01-27-2025 Episodic Deficiency and other anemia (16 sources) Iron deficiency anemia due to blood loss; Translations: [Iron deficiency anemia secondary to blood loss (chronic)] 10-03-2022 Chronic Deficiency and other anemia (15 sources) Iron deficiency anemia secondary to blood loss (chronic); Translations: [Iron deficiency anemia secondary to blood loss (chronic)] Onset: 11-10-2024 10-10-2022 Chronic Deficiency and other anemia (5 sources) Alpha trait thalassemia; 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] 12-09-2024 Chronic Deficiency and other anemia (2 sources) Thalassemia minor; 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] Onset: 12-12-2024 Chronic Deficiency and other anemia (20 sources) Chronic anemia; Translations: [Anemia, unspecified] 03-15-2022 Episodic Deficiency and other anemia (18 sources) Anemia; Translations: [Anemia, unspecified] 09-21-2022 Episodic Deficiency and other anemia (7 sources) Nutritional anemia; Translations: [Vitamin B12 deficiency anemia, unspecified] 06-27-2023 Episodic Deficiency and other anemia (2 sources) Iron deficiency anemia; Translations: [Iron deficiency anemia, unspecified] Onset: 12-07-2023 Episodic Deficiency and other anemia (1 source) Anemia, unspecified; Translations: [Anemia, unspecified] 11-10-2024 Episodic Deficiency and other anemia (1 source) Vitamin B12 deficiency anemia, unspecified; Translations: [Other vitamin B12 deficiency anemia] 11-10-2024 Episodic Delirium, dementia, and amnestic and other [...] Episodic Immunizations and screening for infectious disease (5 sources) Encounter for screening for human papillomavirus (HPV); Translations: [Exposure to sexually transmissible disorder] Onset: 07-05-2022 10-14-2024 Episodic Intestinal infection (1 source) Viral intestinal infection, unspecified; Translations: [VIRAL INTESTINAL INFECTION UNSPEC] Onset: 12-08-2022 Episodic Lymphadenitis (20 sources) Cervical lymphadenopathy; Translations: [Localized enlarged lymph nodes] 12-11-2019 Episodic Menstrual disorders (1 source) Missed period; Translations: [Irregular menstruation, unspecified] 08-26-2024 Chronic Mood disorders (5 sources) Mood disorder; Translations: [Unspecified mood [affective] disorder] Onset: 08-06-2024 11-04-2024 Chronic Nausea and vomiting (20 sources) Nausea and vomiting; Translations: [Nausea with vomiting, unspecified] Onset: 12-07-2022 01-26-2019 Episodic Nonspecific chest pain (20 sources) Atypical chest pain; Translations: [Other chest pain] Onset: 12-08-2022 03-15-2022 Episodic Nutritional deficiencies (3 sources) Folic acid deficiency; Translations: [Deficiency of other specified B group vitamins] Onset: 01-28-2025 11-10-2024 Episodic Other bone disease and musculoskeletal deformities (20 sources) Costal chondritis 01-08-2018 Episodic Other complications of ; puerperium affecting management of mother (13 sources) 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 [...] unspecified trimester] 09-11-2024 Episodic Other complications of (3 sources) Abnormal findings on screening of mother; Translations: [Abnormal chromosomal and genetic finding on screening of mother] 12-12-2024 Episodic Other complications of (2 sources) H/O: premature delivery; Translations: [Supervision of other high risk pregnancies, unspecified trimester] 01-27-2025 Episodic Other connective tissue disease (15 sources) Foot pain; Translations: [Pain in left [...] side] Onset: 08-01-2022 Episodic Residual codes; unclassified (2 sources) Gestation period, 15 weeks; Translations: [15 weeks gestation of ] 10-14-2024 Episodic Residual codes; unclassified (1 source) Gestation period, 18 weeks; Translations: [18 weeks gestation of ] 11-04-2024 Episodic Residual codes; unclassified (3 sources) FH: Sickle cell trait; Translations: [Family history of diseases of the blood and blood-forming organs and certain disorders involving the immune mechanism] 12-12-2024 Episodic Residual codes; unclassified (3 sources) FH: Thrombosis; Translations: [Family history of ischemic heart disease and other diseases of the circulatory system] 12-12-2024 Episodic Residual codes; unclassified (2 sources) Gestation period, 26 weeks; Translations: [26 weeks gestation of ] 12-30-2024 Episodic Residual codes; unclassified (2 sources) Gestation period, 28 weeks; Translations: [28 weeks gestation of ] 01-14-2025 Episodic Residual codes; unclassified (2 sources) Gestation period, 30 weeks; Translations: [30 weeks gestation of ] 01-27-2025 Episodic Residual codes; unclassified (2 sources) Gestation period, 32 weeks; Translations: [32 weeks gestation of ] 02-11-2025 Episodic Suicide and intentional self-inflicted injury (2 sources) Suicidal thoughts; Translations: [Suicidal ideations] 08-16-2024 Episodic [...] tract infection, site not specified] 04-05-2019 Episodic Viral infection (2 sources) Herpes simplex; 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, unspecified] 12-30-2024 Episodic Past or Other Problems Problem Classification Problem Date Documented Da te Episodic/Chronic Abdominal pain (20 sources) Abdominal pain; Translations: [Unspecified abdominal pain] Onset: 04-20-2022 12-06-2020 Episodic Other complications of (15 sources) History of pre-eclampsia; Translations: [Supervision of [...] LUMP] Onset: 02-20-2022 Episodic Other hematologic conditions (16 sources) History of anemia; Translations: [Personal history of diseases of the blood and blood-forming organs and certain disorders involving the immune mechanism] Onset: 03-17-2019 11-21-2024 Episodic Other hematologic conditions (2 sources) Personal history of diseases of the blood [...] scar from previous delivery] Onset: 03-17-2019 Episodic Residual codes; unclassified (20 sources) Gestation period, 10 weeks; Translations: [10 weeks gestation of ] Onset: 09-11-2024 09-11-2024 Episodic Unclassified (4 sources) Onset: 06-03-2015 Resolved: 08-17-2020 08-27-2020 NEGATED: Highlighted row has been ruled out!Unclassified (2 sources) No known active problems 05-15-2023 Results Test Name Value Interpretation Reference Range Facility Urinalysis macro (dipstick) panel (U)on 02-11-2025 Bilirubin, UA Negative Negative - 4(70) +++ mg/dL [facility] Blood, UA Negative Negative - 50 Hong/mcL [facility] Clarity, UA Clear [facility] Color, UA Yellow [facility] Glucose, UA Negative Negative - 2000(110) ++++ mg/dL [facility] Interpretation and review of laboratory results Normal [facility] Ketones, UA Negative Negative - 160(16) ++++ mg/dL [facility] Leukocytes, UA Negative Negative - 500+++ Iqra/mcL [facility] Nitrite, UA Negative Negative - Positive [facility] pH, UA 7 5 - 9 [facility] Protein, UA Negative Negative - 2000(20) ++++ mg/dL [facility] Spec Grav, UA 1.025 1 - 1.03 [facility] Urobilinogen, UA 1.0 0.2 - 12 mg/dL [facility] Basic Metabolic Panelon 05- Anion gap [Moles/Vol] 10.9 mmol/L Normal 6.0-15.0 [facility] Comment on above: Performed By: #### E NATALIE CBC, CMP #### [address] Calcium [Mass/Vol] 7.9 mg/dL Low 8.6-10.3 [facility] Comment on above: Performed By: #### Albino ESTRADA CBC, CMP #### [address] Chloride [Moles/Vol] 107 mmol/L Normal 98-107 [facility] Comment on above: Performed By: #### Albino ESTRADA CBC, CMP #### [address] CO2 [Moles/Vol] 21.3 mmol/L Normal 21.0-31.0 [facility] Comment on above: Performed By: #### E NATALIE CBC, CMP #### [address] Creatinine [Mass/Vol] 0.51 mg/dL Low 0.60-1.20 [facility] Comment on above: Performed By: #### E NATALIE CBC, CMP #### [place] [address] [place] Creatinine Clr Calc Pharmacy 164.96 Normal [facility] Comment on above: Result Comment: PERF ORMED BY: [place] [address] PATHOLOGIST CAMPUS RECRUITING COORDINATOR TRISTEN MOSELEY M.D. Performed By: #### E WANDA ESTRADA, CMP #### [facility] [address] [place] [address] [place] GFR/1.73 sq M.predicted MDRD (S/P/Bld) [Vol rate/Area] mL/min/{1.73_m2} Normal [facility] Comment on above: Performed By: #### E WANDA ESTRADA, CMP #### [address] Glucose [Mass/Vol] 73 mg/dL Normal 70-100 [facility] Comment on above: Result Comment: [place] Glucose Reference Range is dependent on time and content of last meal. Glucose of more than 200 mg/dL in a nonstressed, ambulatory subject supports the diagnosis of Diabetes Mellitus. ADA recommended reference range Performed By: #### E WANDA ESTRADA, CMP #### [facility] [address] Potassium [Moles/Vol] 3.2 mmol/L Low 3.5-5.1 [facility] Comment on above: Performed By: #### E WANDA ESTRADA, CMP #### [address] Sodium [Moles/Vol] 136 mmol/L Normal 136-145 [facility] Comment on above: Performed By: #### E WANDA ESTRADA, CMP #### [facility] [address] Urea nitrogen [Mass/Vol] 4 mg/dL Low 7-25 [facility] Comment on above: Performed By: #### E WANDA ESTRADA, CMP #### [address] BioFire Detectedon 5 BioFire Detected Detected Critically abnormal Not Detecte [facility] Comment on above: Result Comment: This is a duplicate RP2.1 COVID (PCR) result to be used for statistical tracking purpose only. PERFORMED BY: [place] [address] PATHOLOGIST CAMPUS RECRUITING COORDINATOR TRISTEN MOSELEY M.D. Performed By: #### R ANGEL PANEL UPP., BIOFIRECOVDET #### [address] Complete Blood Count Auto Di ffon 02-01-2025 Basophils (Bld) [#/Vol] 0.0 10*3/uL Normal 0.0-0.2 [facility] Comment on above: Result Comment: PERF ORMED BY: [place] [address] PATHOLOGIST CAMPUS RECRUITING COORDINATOR TRISTEN MOSELEY M.D. Performed By: #### E NATALIE, CBC, CMP #### [address] Basophils/100 WBC (Bld) 0.3 % Normal . [facility] Comment on above: Performed By: #### E NATALIE, CBC, CMP #### [address] Eosinophils (Bld) [#/Vol] 0.1 10*3/uL Normal 0.0-0.45 [facility] Comment on above: Performed By: #### E NATALIE, CBC, CMP #### [address] Eosinophils/100 WBC (Bld) 1.1 % Normal . [facility] Comment on above: Performed By: #### E NATALIE, CBC, CMP #### [address] Erythrocyte distribution width (RBC) [Ratio] 14.2 % Normal 11.9-15.3 [facility] Comment on above: Performed By: #### E NATALIE, CBC, CMP #### [address] Hematocrit (Bld) [Volume fraction] 29.7 % Low 34.0-46.4 [facility] Comment on above: Performed By: #### E NATALIE, CBC, CMP #### [address] Hemoglobin (Bld) [Mass/Vol] 9.5 g/dL Low 11.8-15.4 [facility] Comment on above: Performed By: #### E NATALIE CBC, CMP #### [address] Lymphocytes (Bld) [#/Vol] 1.0 10*3/uL Normal 1.00-4.8 [facility] Comment on above: Performed By: #### E NATALIE CBC, CMP #### [address] Lymphocytes/100 WBC (Bld) 14.8 % Normal . [facility] Comment on above: Performed By: #### E NATALIE CBC, CMP #### [address] MCH (RBC) [Entitic mass] 24.1 pg Low 24.7-34.3 [facility] Comment on above: Performed By: #### E NATALIE CBC, CMP #### [address] MCV (RBC) [Entitic vol] 75.3 fL Low 80-100 [facility] Comment on above: Performed By: #### E NATALIE CBC, CMP #### [address] Mean Corpuscular HGB Conc 32.1 g/dL Normal 32.0-35.0 [facility] Comment on above: Performed By: #### E NATALIE CBC, CMP #### [address] Monocytes (Bld) [#/Vol] 0.7 10*3/uL Normal 0.0-0.8 [facility] Comment on above: Performed By: #### E NATALIE CBC, CMP #### [address] Monocytes/100 WBC (Bld) 20.57 % High 0.00-20.00 [facility] Comment on above: Result Comment: For adults in ED, MDW > 20.0 may be associated with a higher risk of sepsis during the first 12 hrs of hospital admission Performed By: #### E NATALIE, CBC, CMP #### [facility] [address] [place] [address] [place] Monocytes/100 WBC (Bld) 9.9 % Normal . [facility] Comment on above: Performed By: #### E NATALIE, CBC, CMP #### [address] Neutrophils (Bld) [#/Vol] 4.8 10*3/uL Normal 1.8-7.7 [facility] Comment on above: Performed By: #### E NATALIE, CBC, CMP #### [address] Neutrophils/100 WBC (Bld) 73.9 % Normal . [facility] Comment on above: Performed By: #### E NATALIE, CBC, CMP #### [address] NRBC% 0.1 /100{WBC} Normal 0-0.5 [facility] Comment on above: Performed By: #### E NATALIE, CBC, CMP #### [place] [address] [place] Platelet mean volume (Bld) [Entitic vol] 9.3 fL Normal 6.3-10.7 [facility] Comment on above: Performed By: #### E NATALIE, CBC, CMP #### [place] [address] [place] Platelets (Bld) [#/Vol] 143 10*3/uL Low 150-450 [facility] Comment on above: Performed By: #### E NATALIE, CBC, CMP #### [place] [address] [place] RBC (Bld) [#/Vol] 3.94 10*6/uL Normal 3.60-5.00 [facility] Comment on above: Performed By: #### E NATALIE, CBC, CMP #### [place] [address] [place] WBC (Bld) [#/Vol] 6.5 10*3/uL Normal 3.8-11.6 [facility] Comment on above: Performed By: #### E NATALIE, CBC, CMP #### [facility] [address] [place] [address] [place] Dipstick and Microscopicon 0 02-01-2025 Appearance (U) Clear Normal Clear [facility] Comment on above: Order Comment: Name Collection Type:: Clean-Voided Midstream Performed By: #### E NATALIE, CBC, CMP #### [place] [address] [place] Bacteria,Urine 1+ High None Seen [facility] Comment on above: Order Comment: Name Collection Type:: Clean-Voided Midstream Performed By: #### E NATALIE, CBC, CMP #### [place] [address] [place] Bilirubin,Urine Negative Normal Negative [facility] Comment on above: Order Comment: Name Collection Type:: Clean-Voided Midstream Performed By: #### E NATALIE, CBC, CMP #### [place] [address] [place] Color (U) Light-Yellow Normal Yellow [facility] Comment on above: Order Comment: Name Collection Type:: Clean-Voided Midstream Performed By: #### E NATALIE, CBC, CMP #### [facility] [address] [place] [address] [place] Glucose Ql (U) Normal Normal Normal [facility] Comment on above: Order Comment: Name Collection Type:: Clean-Voided Midstream Performed By: #### E NATALIE, CBC, CMP #### [place] [address] [place] Hyaline Casts,Urine None Normal 0-8 [facility] Comment on above: Order Comment: Name Collection Type:: Clean-Voided Midstream Performed By: #### E NATALIE, CBC, CMP #### [facility] [address] [place] [address] [place] Ketones Ql (U) 3+ High Negative [facility] Comment on above: Order Comment: Name Collection Type:: Clean-Voided Midstream Performed By: #### E NATALIE, CBC, CMP #### [address] Leukocyte esterase Test strip Ql (U) 2+ High Negative [facility] Comment on above: Order Comment: Name Collection Type:: Clean-Voided Midstream Performed By: #### E NATALIE, CBC, CMP #### [address] Mucus,Urine Rare Normal [facility] Comment on above: Order Comment: Name Collection Type:: Clean-Voided Midstream Result Comment: PERF ORMED BY: [place] [address] PATHOLOGIST CAMPUS RECRUITING COORDINATOR TRISTEN MOSELEY M.D. Performed By: #### E NATALIE, CBC, CMP #### [address] Nitrite,Urine Negative Normal Negative [facility] Comment on above: Order Comment: Name Collection Type:: Clean-Voided Midstream Performed By: #### E NATALIE, CBC, CMP #### [place] [address] [place] Occult Blood,Urine Negative Normal Negative [facility] Comment on above: Order Comment: Name Collection Type:: Clean-Voided Midstream Result Comment: PERF ORMED BY: [place] [address] PATHOLOGIST CAMPUS RECRUITING COORDINATOR TRISTEN MOSELEY M.D. Performed By: #### E NATALIE, CBC, CMP #### [place] [address] [place] pH (U) 6.5 [pH] Normal 5.0-9.0 [facility] Comment on above: Order Comment: Name Collection Type:: Clean-Voided Midstream Performed By: #### E NATALIE, CBC, CMP #### [address] Protein,Urine Negative Normal Negative [facility] Comment on above: Order Comment: Name Collection Type:: Clean-Voided Midstream Performed By: #### E NATALIE, CBC, CMP #### [address] RBC,Urine 1-2 Normal 0-4 [facility] Comment on above: Order Comment: Name Collection Type:: Clean-Voided Midstream Performed By: #### E NATALIE, CBC, CMP #### [address] Specificy [place],Urine 1.011 Normal 1.001-1.03 0 [facility] Comment on above: Order Comment: Name Collection Type:: Clean-Voided Midstream Performed By: #### E NATALIE, CBC, CMP #### [address] Squamous Epithelial Cell,Urine 5-9 High 0-2 [facility] Comment on above: Order Comment: Name Collection Type:: Clean-Voided Midstream Performed By: #### E NATALIE, CBC, CMP #### [address] Urobilinogen,Urine Normal Normal Normal [facility] Comment on above: Order Comment: Name Collection Type:: Clean-Voided Midstream Performed By: #### E NATALIE, CBC, CMP #### [address] WBC,Urine 1-2 Normal 0-4 [facility] Comment on above: Order Comment: Name Collection Type:: Clean-Voided Midstream Performed By: #### E NATALIE, CBC, CMP #### [address] Quick Strepon 02-01-2025 Quick Strep Streptococcus pyogen es Ag [Presence] in Throat by Rapid immunoassay Negative for Group A Strep Antigen Note 1 NOTE 2 Results are those of a screening test. NOTE 3 If clinically indicated please order a culture. NOTE 4 NOTE 5 Reference range = Negative PERFORMED BY: [facility] [address] [place] [id number] PATHOLOGIST CAMPUS RECRUITING COORDINATOR TRISTEN Galvez [facility] Comment on above: Performed By: #### E NATALIE, CBC, CMP #### [facility] [address] Respiratory (Upper) Panel, P CRon 02-01-2025 Respiratory (Upper) Panel, PCR Adenovirus Not detected Bordetella parapertussis Not detected [...] Influenza A H3 Blank Space PERFORMED BY: [place] [address] PATHOLOGIST CAMPUS RECRUITING COORDINATOR TRISTEN MOSELEY M.D. Normal [facility] Comment on above: Performed By: #### R ANGEL PANEL UPP., BIOFIRECOVDET #### [facility] [address] [place] [id number] Ferritinon 01-28-2025 Ferritin [Mass/Vol] 43.0 ng/mL Normal 11.0-306.8 [facility] Comment on above: Result Comment: PERF ORMED BY: [place] [address] PATHOLOGIST CAMPUS RECRUITING COORDINATOR TRISTEN MOSELEY M.D. Performed By: #### E NATALIE, CBC, CMP #### [facility] [address] [place] [address] Ferritin [Mass/volume] in Se rum or PlasmaOrdered By: Priscilla Warren on 01-28-2025 Ferritin [Mass/Vol] Ferritin [Mass/volum e] in Serum or Plasma 11.0-306.8 [facility] Transferrinon 01-28-2025 Transferrin [Mass/Vol] 226 mg/dL Normal 203-362 [facility] Comment on above: Performed By: #### E NATALIE, CBC, CMP #### [facility] [address] [place], [place] [id number] [facility] Transferrin [Mass/volume] in Serum or PlasmaOrdered By: Priscilla Warren on 01-28-2025 Transferrin [Mass/Vol] Transferrin [Mass /volume] in Serum or Plasma 203-362 [facility] RECURRENT VAGINITIS (HTRX)on 01-15-2025 ATOPOBIUM VAGINAE 25.517 Abnormal [facility] ATOPOBIUM VAGINAE Detected Abnormal [facility] BVAB 2,3 (BACTERIAL VAGINOSIS ASSOCIATED BACTERIA 2, 3); MOBILUNCUS SPP 23.796 Abnormal [facility] BVAB 2,3 (BACTERIAL VAGINOSIS ASSOCIATED BACTERIA 2, 3); MOBILUNCUS SPP Detected Abnormal [facility] MARION ALBICANS, PARAPSILOSIS, TROPICALIS 0 [facility] MARION ALBICANS, PARAPSILOSIS, TROPICALIS Not detected [facility] MARION GLABRATA 0 [facility] MARION GLABRATA Not detected [facility] MARION KRUSEI 0 [facility] MARION KRUSEI Not detected [facility] CHLAMYDIA TRACHOMATIS 0 [facility] CHLAMYDIA TRACHOMATIS Not detected [facility] GARDNERELLA VAGINALIS 0 [facility] GARDNERELLA VAGINALIS Not detected N [facility] Interpretation and review of laboratory results Abnormal [facility] MEGASPHAERA (TYPES 1, 2) 0 [facility] MEGASPHAERA (TYPES 1, 2) Not detected [facility] MYCOPLASMA GENITALIUM 0 [facility] MYCOPLASMA GENITALIUM Not detected N [facility] NEISSERIA GONORRHOEAE 0 [facility] NEISSERIA GONORRHOEAE Not detected N [facility] TRICHOMONAS VAGINALIS 0 [facility] TRICHOMONAS VAGINALIS Not detected N [facility] Urinalysis macro (dipstick) panel (U)on 01-14-2025 Bilirubin, UA Negative Negative - 4(70) +++ mg/dL [facility] Blood, UA Positive Negative - 50 Hong/mcL [facility] Comment on above: Trace-lysed Clarity, UA Clear [facility] Color, UA Yellow [facility] Glucose, UA Negative Negative - 2000(110) ++++ mg/dL [facility] Interpretation and review of laboratory results Abnormal [facility] Ketones, UA Positive Negative - 160(16) ++++ mg/dL [facility] Comment on above: Trace Leukocytes, UA Negative Negative - 500+++ Iqra/mcL [facility] Nitrite, UA Negative Negative - Positive [facility] pH, UA 7 5 - 9 [facility] Protein, UA Trace Negative - 1999(20) ++++ mg/dL [facility] Spec Grav, UA 1.025 1 - 1.03 [facility] Urobilinogen, UA 1.0 0.2 - 12 mg/dL [facility] ALL CBC WITH AUTO DIFFon BASOPHILS ABSOLUTE AUTO 0 [facility] Basophils/100 WBC (Bld) 0.2 % 0.2 - 2.0 % [facility] Eosinophils/100 WBC (Bld) 1 % 0.9 - 7.0 % [facility] Erythrocyte distribution width (RBC) [Ratio] 13.4 % 11.0 - 15.0 % [facility] Hematocrit (Bld) [Volume fraction] 30.3 % Low 36.0 - 48.0 % [facility] Hemoglobin (Bld) [Mass/Vol] 9.4 g/dL Low 12.0 - 16.0 g/dL [facility] IMMATURE GRANULOCYTES ABS AUTO 0.05 High [facility] Immature granulocytes/100 WBC (Bld) 0.6 % High 0.0 - 0.5 % [facility] Interpretation and review of laboratory results Abnormal [facility] LYMPHOCYTES ABSOLUTE AUTO 1.2 [facility] Lymphocytes/100 WBC (Bld) 13.6 % Low 20.5 - 60.0 % [facility] MCH (RBC) [Entitic mass] 23.9 pg Low 26.7 - 34.0 pg [facility] MCHC (RBC) [Mass/Vol] 31 g/dL 29.9 - 35.2 g/dL [facility] MCV (RBC) [Entitic vol] 77.1 fL Low 81.0 - 99.0 fL [facility] MONOCYTES ABSOLUTE AUTO 0.6 [facility] Monocytes/100 WBC (Bld) 6.7 % 1.7 - 12.0 % [facility] NEUTROPHILS ABSOLUTE AUTO 6.9 High [facility] Neutrophils/100 WBC (Bld) 77.9 % High 43.0 - 75.0 % [facility] Platelet mean volume (Bld) [Entitic vol] 11.3 fL 9.5 - 13.5 fL [facility] EO # 0.1 [facility] PLT 187 [facility] RBC 3.93 Low [facility] WBC 8.9 [facility] ALL CBC WITH AUTO DIFFon BASOPHILS ABSOLUTE AUTO 0 [facility] Basophils/100 WBC (Bld) 0.2 % 0.2 - 2.0 % [facility] Eosinophils/100 WBC (Bld) 1.2 % 0.9 - 7.0 % [facility] Erythrocyte distribution width (RBC) [Ratio] 13.5 % 11.0 - 15.0 % [facility] Hematocrit (Bld) [Volume fraction] 29.8 % Low 36.0 - 48.0 % [facility] [facility] Hemoglobin (Bld) [Mass/Vol] 9.3 g/dL Low 12.0 - 16.0 g/dL [facility] IMMATURE GRANULOCYTES ABS AUTO 0.03 [facility] Immature granulocytes/100 WBC (Bld) 0.4 % 0.0 - 0.5 % [facility] Interpretation and review of laboratory results Abnormal [facility] LYMPHOCYTES ABSOLUTE AUTO 1.3 [facility] Lymphocytes/100 WBC (Bld) 15.8 % Low 20.5 - 60.0 % [facility] MCH (RBC) [Entitic mass] 24.2 pg Low 26.7 - 34.0 pg [facility] MCHC (RBC) [Mass/Vol] 31.2 g/dL 29.9 - 35.2 g/dL [facility] MCV (RBC) [Entitic vol] 77.4 fL Low 81.0 - 99.0 fL [facility] MONOCYTES ABSOLUTE AUTO 0.5 [facility] Monocytes/100 WBC (Bld) 6.2 % 1.7 - 12.0 % [facility] NEUTROPHILS ABSOLUTE AUTO 6.3 [facility] Neutrophils/100 WBC (Bld) 76.2 % High 43.0 - 75.0 % [facility] Platelet mean volume (Bld) [Entitic vol] 11.7 fL 9.5 - 13.5 fL [facility] TBH EO # 0.1 [facility]H PLT 184 [facility] RBC 3.85 Low [facility] WBC 8.3 [facility]IS[facility] RECURRENT VAGINITIS (HTRX)on 12-31-2024 ATOPOBIUM VAGINAE 0 Abnormal [facility] ATOPOBIUM VAGINAE Inconclusive Abnormal [facility] BVAB 2,3 (BACTERIAL VAGINOSIS ASSOCIATED BACTERIA 2, 3); MOBILUNCUS SPP 0 Abnormal [facility] BVAB 2,3 (BACTERIAL VAGINOSIS ASSOCIATED BACTERIA 2, 3); MOBILUNCUS SPP Inconclusive Abnormal [facility] MARION ALBICANS, PARAPSILOSIS, TROPICALIS 0 Abnormal [facility] MARION ALBICANS, PARAPSILOSIS, TROPICALIS Inconclusive Abnormal [facility] MARION GLABRATA 0 Abnormal [facility] MARION GLABRATA Inconclusive Abnormal [facility] MARION KRUSEI 0 Abnormal [facility] MARION KRUSEI Inconclusive Abnormal [facility] CHLAMYDIA TRACHOMATIS 0 Abnormal [facility] CHLAMYDIA TRACHOMATIS Inconclusive Abnormal [facility] GARDNERELLA VAGINALIS 0 Abnormal [facility] GARDNERELLA VAGINALIS Inconclusive Abnormal [facility] Interpretation and review of laboratory results Abnormal [facility] MEGASPHAERA (TYPES 1, 2) 0 Abnormal [facility] MEGASPHAERA (TYPES 1, 2) Inconclusive Abnormal [facility] MYCOPLASMA GENITALIUM 0 Abnormal [facility] MYCOPLASMA GENITALIUM Inconclusive Abnormal [facility] NEISSERIA GONORRHOEAE 0 Abnormal [facility] NEISSERIA GONORRHOEAE Inconclusive Abnormal [facility] TRICHOMONAS VAGINALIS 0 Abnormal [facility] TRICHOMONAS VAGINALIS Inconclusive Abnormal [facility] Alanine aminotransferase [En zymatic activity/volume] in Serum or PlasmaOrdered By: Kelly Hough on 11-07-2024 ALT [Catalytic activity/Vol] Alanine aminotransferase [Enzymatic activity/volume] in Serum or Plasma 7-52 [facility] Albumin [Mass/volume] in Ser um or Plasma by Bromocresol green (BCG) dye binding methoOrdered By: Kelly Hough on 11-07-2024 Albumin BCG dye [Mass/Vol] Albumin [Mass/volume] in Serum or Plasma by Bromocresol green (BCG) dye binding metho 3.5-5.7 [facility] Alkaline phosphatase [Enzyma tic activity/volume] in Serum or PlasmaOrdered By: Kelly Hough on 11-07-2024 ALP [Catalytic activity/Vol] Alkaline phosphatase [Enzymatic activity/volume] in Serum or Plasma 34-104 [facility] Aspartate aminotransferase [ Enzymatic activity/volume] in Serum or PlasmaOrdered By: Kelly Hough on 11-07-2024 AST [Catalytic activity/Vol] Aspartate aminotransferase [Enzymatic activity/volume] in Serum or Plasma Low 13-39 [facility] Basophils Auto (Bld) [#/Vol] Ordered By: Kelly Hough on 11-07-2024 Basophils (Bld) [#/Vol] Automated basophil count 0.0-0.2 [facility] Basophils/100 WBC Auto (Bld) Ordered By: Kelly Hough on 11-07-2024 Basophils/100 WBC (Bld) Automated basophil % . [facility] Bilirubin.total [Mass/volume ] in Serum or PlasmaOrdered By: Kelly Hough on 11-07-2024 Bilirubin [Mass/Vol] Bilirubin.total [Mass/volume] in Serum or Plasma 0.3-1.0 [facility] CBC W Auto Differential pane l (Bld)on 11-07-2024 Basophils (Bld) [#/Vol] 0 10*3/uL 0.0 - 0.2 10*3/uL [facility] Basophils/100 WBC Manual cnt (Syn fld) 0.3 % . [facility] Eosinophils (Bld) [#/Vol] 0.1 10*3/uL 0.0 - 0.45 10*3/uL [facility] Eosinophils/100 WBC Manual cnt (Syn fld) 1.1 % . [facility] Erythrocyte distribution width (RBC) [Ratio] 14.4 % 11.9 - 15.3 % [facility] Hematocrit (Bld) [Volume fraction] 30.7 % Low 34.0 - 46.4 % [facility] Hemoglobin (Bld) [Mass/Vol] 9.7 g/dL Low 11.8 - 15.4 g/dL [facility] Interpretation and review of laboratory results Abnormal [facility] Lymphocytes (Bld) [#/Vol] 1.7 10*3/uL 1.00 - 4.8 10*3/uL [facility] Lymphocytes/100 WBC Manual cnt (Syn fld) 16.9 % . [facility] MCH (RBC) [Entitic mass] 23.3 pg Low 24.7 - 34.3 pg [facility] MCHC (RBC) [Mass/Vol] 31.7 g/dL Low 32.0 - 35.0 g/dL [facility] MCV (RBC) [Entitic vol] 73.4 fL Low 80 - 100 fL [facility] Monocytes (Bld) [#/Vol] 0.7 10*3/uL 0.0 - 0.8 10*3/uL [facility] Monocytes+Macrophages/ 100 WBC Manual cnt (Syn fld) 6.7 % . [facility] Neutrophils (Bld) [#/Vol] 7.4 10*3/uL 1.8 - 7.7 10*3/uL [facility] Neutrophils/100 WBC Manual cnt (Syn fld) 75 % . [facility] NRBC 0.1 /100{WBC} 0 - 0.5 /100{WBC} [facility] Platelet mean volume (Bld) [Entitic vol] 9.5 fL 6.3 - 10.7 fL [facility] Platelets (Bld) [#/Vol] 182 10*3/uL 150 - 450 10*3/uL [facility] RBC LM.HPF (Urine sed) [#/Area] 4.18 10*6/uL 3.60 - 5.00 10*6/uL [facility] WBC (Bld) [#/Vol] 9.9 10*3/uL 3.8 - 11.6 10*3/uL [facility] WBC LM.HPF (Urine sed) [#/Area] 9.9 10*3/uL 3.8 - 11.6 10*3/uL [facility] Calcium [Mass/volume] in Ser um or PlasmaOrdered By: Kelly France on 11-07-2024 Calcium [Mass/Vol] Calcium [Mass/volume ] in Serum or Plasma Low 8.6-10.3 [facility] Carbon dioxide, total [Moles /volume] in Serum or PlasmaOrdered By: Kelly Hough on 11-07-2024 CO2 [Moles/Vol] Carbon dioxide, tota l [Moles/volume] in Serum or Plasma 21.0-31.0 [facility] Chloride [Moles/volume] in S salas or PlasmaOrdered By: Kelly France on 11-07-2024 Chloride [Moles/Vol] Chloride [Moles/vol ume] in Serum or Plasma 98-107 [facility] Complete Blood Count Auto Di ffon 11-07-2024 Basophils (Bld) [#/Vol] 0.0 10*3/uL Normal 0.0-0.2 [facility] Comment on above: Result Comment: PERF ORMED BY: [place] [address] PATHOLOGIST CAMP[facility] [employer]UITING COORDINATOR TRISTEN MOSELEY M.D. Performed By: #### C OVID19 FLU RSV, CEPHEID NEG #### [address] Basophils/100 WBC (Bld) 0.3 % Normal . [facility] Comment on above: Performed By: #### C OVID19 FLU RSV, CEPHEID NEG #### [place] [address] [place] Eosinophils (Bld) [#/Vol] 0.1 10*3/uL Normal 0.0-0.45 [facility] Comment on above: Performed By: #### C OVID19 FLU RSV, CEPHEID NEG #### [address] Eosinophils/100 WBC (Bld) 1.1 % Normal . [facility] Comment on above: Performed By: #### C OVID19 FLU RSV, CEPHEID NEG #### [address] Erythrocyte distribution width (RBC) [Ratio] 14.4 % Normal 11.9-15.3 [facility] Comment on above: Performed By: #### C OVID19 FLU RSV, CEPHEID NEG #### [address] Hematocrit (Bld) [Volume fraction] 30.7 % Low 34.0-46.4 [facility] Comment on above: Performed By: #### C OVID19 FLU RSV, CEPHEID NEG #### [address] Hemoglobin (Bld) [Mass/Vol] 9.7 g/dL Low 11.8-15.4 [facility] Comment on above: Performed By: #### C OVID19 FLU RSV, CEPHEID NEG #### [address] Lymphocytes (Bld) [#/Vol] 1.7 10*3/uL Normal 1.00-4.8 [facility] Comment on above: Performed By: #### C OVID19 FLU RSV, CEPHEID NEG #### [place] [address] [place] Lymphocytes/100 WBC (Bld) 16.9 % Normal . [facility] Comment on above: Performed By: #### C OVID19 FLU RSV, CEPHEID NEG #### [address] MCH (RBC) [Entitic mass] 23.3 pg Low 24.7-34.3 [facility] Comment on above: Performed By: #### C OVID19 FLU RSV, CEPHEID NEG #### [address] MCV (RBC) [Entitic vol] 73.4 fL Low 80-100 [facility] Comment on above: Performed By: #### C OVID19 FLU RSV, CEPHEID NEG #### [address] Mean Corpuscular HGB Conc 31.7 g/dL Low 32.0-35.0 [facility] Comment on above: Performed By: #### C OVID19 FLU RSV, CEPHEID NEG #### [address] Monocytes (Bld) [#/Vol] 0.7 10*3/uL Normal 0.0-0.8 [facility] Comment on above: Performed By: #### C OVID19 FLU RSV, CEPHEID NEG #### [address] Monocytes/100 WBC (Bld) 6.7 % Normal . [facility] Comment on above: Performed By: #### C OVID19 FLU RSV, CEPHEID NEG #### [address] Neutrophils (Bld) [#/Vol] 7.4 10*3/uL Normal 1.8-7.7 [facility] Comment on above: Performed By: #### C OVID19 FLU RSV, CEPHEID NEG #### [address] Neutrophils/100 WBC (Bld) 75.0 % Normal . [facility] Comment on above: Performed By: #### C OVID19 FLU RSV, CEPHEID NEG #### [address] NRBC% 0.1 /100{WBC} Normal 0-0.5 [facility] Comment on above: Performed By: #### C OVID19 FLU RSV, CEPHEID NEG #### [address] Platelet mean volume (Bld) [Entitic vol] 9.5 fL Normal 6.3-10.7 [facility] Comment on above: Performed By: #### C OVID19 FLU RSV, CEPHEID NEG #### [address] Platelets (Bld) [#/Vol] 182 10*3/uL Normal 150-450 [facility] Comment on above: Performed By: #### C OVID19 FLU RSV, CEPHEID NEG #### [address] RBC (Bld) [#/Vol] 4.18 10*6/uL Normal 3.60-5.00 [facility] Comment on above: Performed By: #### C OVID19 FLU RSV, CEPHEID NEG #### [address] WBC (Bld) [#/Vol] 9.9 10*3/uL Normal 3.8-11.6 [facility] Comment on above: Performed By: #### C OVID19 FLU RSV, CEPHEID NEG #### [address] Comprehensive Metabolic Pane tommie 11-07-2024 Albumin [Mass/Vol] 3.5 g/dL Normal 3.5-5.7 [facility] Comment on above: Performed By: #### C OVID19 FLU RSV, CEPHEID NEG #### [address] Albumin/Globulin [Mass ratio] 1.3 {ratio} Normal [facility] Comment on above: Performed By: #### C OVID19 FLU RSV, CEPHEID NEG #### [address] ALP [Catalytic activity/Vol] 42 U/L Normal 34-104 [facility] Comment on above: Performed By: #### C OVID19 FLU RSV, CEPHEID NEG #### [address] ALT [Catalytic activity/Vol] 12 U/L Normal 7-52 [facility] Comment on above: Performed By: #### C OVID19 FLU RSV, CEPHEID NEG #### [address] Anion gap [Moles/Vol] 11.4 mmol/L Normal 6.0-15.0 [facility] Comment on above: Performed By: #### C OVID19 FLU RSV, CEPHEID NEG #### [address] AST [Catalytic activity/Vol] 12 U/L Low 13-39 [facility] Comment on above: Performed By: #### C OVID19 FLU RSV, CEPHEID NEG #### [address] Bilirubin [Mass/Vol] 0.3 mg/dL Normal 0.3-1.0 [facility] Comment on above: Performed By: #### C OVID19 FLU RSV, CEPHEID NEG #### [address] Calcium [Mass/Vol] 8.5 mg/dL Low 8.6-10.3 [facility] Comment on above: Performed By: #### C OVID19 FLU RSV, CEPHEID NEG #### [address] Chloride [Moles/Vol] 106 mmol/L Normal 98-107 [facility] Comment on above: Performed By: #### C OVID19 FLU RSV, CEPHEID NEG #### [place] [address] [place] CO2 [Moles/Vol] 23.4 mmol/L Normal 21.0-31.0 [facility] Comment on above: Performed By: #### C OVID19 FLU RSV, CEPHEID NEG #### [address] Creatinine [Mass/Vol] 0.53 mg/dL Low 0.60-1.20 [facility] Comment on above: Performed By: #### C OVID19 FLU RSV, CEPHEID NEG #### [facility] [address] [place] [address] [place] Creatinine Clr Calc Pharmacy 143.46 Normal [facility] Comment on above: Performed By: #### C OVID19 FLU RSV, CEPHEID NEG #### [facility] [address] [place] [address] [place] GFR/1.73 sq M.predicted MDRD (S/P/Bld) [Vol rate/Area] mL/min/{1.73_m2} Normal [facility] Comment on above: Performed By: #### C OVID19 FLU RSV, CEPHEID NEG #### [place] [address] [place] Globulin (S) [Mass/Vol] 2.6 g/dL Normal [facility] Comment on above: Performed By: #### C OVID19 FLU RSV, CEPHEID NEG #### [address] Glucose [Mass/Vol] 75 mg/dL Normal 70-100 [facility] Comment on above: Result Comment: [facility] Glucose Reference Range is dependent on time and content of last meal. Glucose of more than 200 mg/dL in a nonstressed, ambulatory subject supports the diagnosis of Diabetes Mellitus. ADA recommended reference range Performed By: #### C OVID19 FLU RSV, CEPHEID NEG #### [address] Potassium [Moles/Vol] 3.8 mmol/L Normal 3.5-5.1 [facility] Comment on above: Performed By: #### C OVID19 FLU RSV, CEPHEID NEG #### [place] [address] [place] Protein [Mass/Vol] 6.1 g/dL Low 6.4-8.9 [facility] Comment on above: Performed By: #### C OVID19 FLU RSV, CEPHEID NEG #### [address] Sodium [Moles/Vol] 137 mmol/L Normal 136-145 [facility] Comment on above: Performed By: #### C OVID19 FLU RSV, CEPHEID NEG #### [facility] [address] Urea nitrogen [Mass/Vol] 11 mg/dL Normal 7-25 [facility] Comment on above: Performed By: #### C OVID19 FLU RSV, CEPHEID NEG #### [facility] [address] Creatinine [Mass/volume] in Serum or PlasmaOrdered By: Kelly Hough on 11-07-2024 Creatinine [Mass/Vol] Creatinine [Mass/v olume] in Serum or Plasma Low 0.60-1.20 [facility] Eosinophils Auto (Bld) [#/Vo l]Ordered By: Kelly Hough on 11-07-2024 Eosinophils (Bld) [#/Vol] Automated eosinophil count 0.0-0.45 [facility] Eosinophils/100 WBC Auto (Bl d)Ordered By: Kelly Hough on 11-07-2024 Eosinophils/100 WBC (Bld) Automated eosinophil % . [facility] Erythrocyte distribution wid th Auto (RBC) [Ratio]Ordered By: Kelly Hough on 11-07-2024 Erythrocyte distribution width (RBC) [Ratio] Erythrocyte distribution width [Ratio] by Automated count 11.9-15.3 [facility] Ferritinon 11-07-2024 Ferritin [Mass/Vol] 93.7 ng/mL Normal 11.0-306.8 [facility] Comment on above: Performed By: #### C OVID19 FLU RSV, CEPHEID NEG #### [facility] [address] [place] [address] [place] Ferritin [Mass/volume] in Se rum or PlasmaOrdered By: Kelly Hough on 11-07-2024 Ferritin [Mass/Vol] Ferritin [Mass/volum e] in Serum or Plasma 11.0-306.8 [facility] Folateon 11-07-2024 Folate 8.1 ng/mL Normal >5.9 [facility] Comment on above: Result Comment: Breana te reference range: >5.9 ng/ml The WHO technical consultation on folate and vitamin b12 deficiencies has determined that folate concentrations less than 4 ng/ml are considered deficient. PERFORMED BY: [facility] [address] [place] [address] PATHOLOGIST CAMPUS RECRUITING COORDINATOR TRISTEN MOSELEY M.D. Performed By: #### C OVID19 FLU RSV, CEPHEID NEG #### [address] Folate [Mass/volume] in Seru m or PlasmaOrdered By: Kelly Hough on 11-07-2024 Folate [Mass/Vol] Folate [Mass/volume] in Serum or Plasma >5.9 [facility] Comment on above: Folate reference ran ge: >5.9 ng/mlThe WHO technical consultation on folate and vitamin [id number] has determined that folate concentrations lessthan 4 ng/ml are considered deficient. Globulin Calc (S) [Mass/Vol] Ordered By: Kelly Hough on 11-07-2024 Globulin (S) [Mass/Vol] Serum globulin measurement by calculation (mass/volume) [facility] Glucose [Mass/volume] in Ser um or PlasmaOrdered By: Kelly Hough on 11-07-2024 Glucose [Mass/Vol] Glucose [Mass/volume ] in Serum or Plasma 70-100 [facility] Comment on above: ADA recommended [...] of Blood by Automated count Low 34.0-46.4 [facility] Hemoglobin [Mass/volume] in BloodOrdered By: Kelly Hough on 11-07-2024 Hemoglobin (Bld) [Mass/Vol] Hemoglobin [Mass/volume] in Blood Low 11.8-15.4 [facility] Iron [Mass/volume] in Serum or PlasmaOrdered By: Kelly Hough on 11-07-2024 Iron [Mass/Vol] Iron [Mass/volume] i n Serum or Plasma 50-212 [facility] Iron and TIBC Profileon 10-19 % Iron Saturation 21.4 % Normal 20-50 [facility] Comment on above: Performed By: #### C OVID19 FLU RSV, CEPHEID NEG #### [facility] [address] Iron [Mass/Vol] 62 ug/dL Normal 50-212 [facility] Comment on above: Performed By: #### C OVID19 FLU RSV, CEPHEID NEG #### [facility] [address] Total Iron Binding Capacity 290 ug/dL Normal 255-450 [facility] Comment on above: Performed By: #### C OVID19 FLU RSV, CEPHEID NEG #### [facility] [address] [place] [address] [place] Transferrin [Mass/Vol] 207 mg/dL Normal 203-362 [facility] Comment on above: Performed By: #### C OVID19 FLU RSV, CEPHEID NEG #### [facility] [address] [place] [address] [place] Leukocytes [#/volume] correc delmer for nucleated erythrocytes in Blood by Automated counOrdered By: Kelly Hough on 11-07-2024 WBC corrected for nucl RBC Auto (Bld) [#/Vol] Leukocytes [#/volume] corrected for nucleated erythrocytes in Blood by Automated coun 3.8-11.6 [facility] Lymphocytes Auto (Bld) [#/Vo l]Ordered By: Kelly Hough on 11-07-2024 Lymphocytes (Bld) [#/Vol] Lymphocytes [#/volume] in Blood by Automated count 1.00-4.8 [facility] Lymphocytes/100 WBC Auto (Bl d)Ordered By: Kelly Hough on 11-07-2024 Lymphocytes/100 WBC (Bld) Lymphocytes/100 leukocytes in Blood by Automated count . [facility] MCH Auto (RBC) [Entitic mass ]Ordered By: Kelly Hough on 11-07-2024 MCH (RBC) [Entitic mass] MCH [Entitic mass] by Automated count Low 24.7-34.3 [facility] MCHC Auto (RBC) [Mass/Vol]Or dered By: Kelly Hough on 11-07-2024 MCHC (RBC) [Mass/Vol] MCHC [Mass/volume] by Automated count Low 32.0-35.0 [facility] MCV Auto (RBC) [Entitic vol] Ordered By: Kelly Hough on 11-07-2024 MCV (RBC) [Entitic vol] MCV [Entitic volume] by Automated count Low 80-100 [facility] Monocytes Auto (Bld) [#/Vol] Ordered By: Kelly Hough on 11-07-2024 Monocytes (Bld) [#/Vol] Automated blood monocyte count 0.0-0.8 [facility] Monocytes/100 WBC Auto (Bld) Ordered By: Kelly Hough on 11-07-2024 Monocytes/100 WBC (Bld) Automated monocyte % . [facility] Neutrophils Auto (Bld) [#/Vo l]Ordered By: Kelly Hough on 11-07-2024 Neutrophils (Bld) [#/Vol] Neutrophils [#/volume] in Blood by Automated count 1.8-7.7 [facility] Neutrophils/100 WBC Auto (Bl d)Ordered By: Kelly Hough on 11-07-2024 Neutrophils/100 WBC (Bld) Automated neutrophil % . [facility] No Panel InformationOrdered By: Kelly Hough on 11-07-2024 Estimated GFR (CKD-EPI) > 60.0 mL/Min [facility] Creatinine Clearance (Chem 143.46 [facility] Nucleated erythrocytes [Pres ence] in Blood by Automated countOrdered By: Kelly Hough on 11-07-2024 Nucleated RBC Auto Ql (Bld) Nucleated erythrocytes [Presence] in Blood by Automated count 0-0.5 [facility] Platelet mean volume Auto (B ld) [Entitic vol]Ordered By: Kelly Hough on 11-07-2024 Platelet mean volume (Bld) [Entitic vol] Platelet mean volume [Entitic volume] in Blood by Automated count 6.3-10.7 [facility] Platelets Auto (Bld) [#/Vol] Ordered By: Kelly Hough on 11-07-2024 Platelets (Bld) [#/Vol] Platelets [#/volume] in Blood by Automated count 150-450 [facility] Potassium [Moles/volume] in Serum or PlasmaOrdered By: Kelly Hough on 11-07-2024 Potassium [Moles/Vol] Potassium [Moles/v olume] in Serum or Plasma 3.5-5.1 [facility] Protein [Mass/volume] in Ser um or PlasmaOrdered By: Kelly Hough on 11-07-2024 Protein [Mass/Vol] Protein [Mass/volume ] in Serum or Plasma Low 6.4-8.9 [facility] RBC Auto (Bld) [#/Vol]Ordere d By: Kelly Hough on 11-07-2024 RBC (Bld) [#/Vol] Erythrocytes [#/volu me] in Blood by Automated count 3.60-5.00 [facility] Serum or plasma albumin/glob ulin mass ratioOrdered By: Kelly Hough on 11-07-2024 Albumin/Globulin [Mass ratio] Serum or plasma albumin/globulin mass ratio [facility] Serum or plasma anion gap de terminationOrdered By: Kelly Hough on 11-07-2024 Anion gap [Moles/Vol] Serum or plasma an ion gap determination 6.0-15.0 [facility] Serum or plasma iron binding capacity measurement (mass/volume)Ordered By: Kelly Hough on 11-07-2024 Iron binding capacity [Mass/Vol] Iron binding capacity [Mass/volume] in Serum or Plasma 255-450 [facility] Serum or plasma iron saturat ion measurement (mass fraction)Ordered By: Kelly Hough on 11-07-2024 Iron saturation [Mass fraction] Iron saturation [Mass Fraction] in Serum or Plasma 20-50 [facility] Sodium [Moles/volume] in Ser um or PlasmaOrdered By: Kelly Hough on 11-07-2024 Sodium [Moles/Vol] Sodium [Moles/volume ] in Serum or Plasma 136-145 [facility] Transferrin [Mass/volume] in Serum or PlasmaOrdered By: Kelly Hough on 11-07-2024 Transferrin [Mass/Vol] Transferrin [Mass /volume] in Serum or Plasma 203-362 [facility] Urea nitrogen [Mass/volume] in Serum or PlasmaOrdered By: Kelly Hough on 11-07-2024 Urea nitrogen [Mass/Vol] Urea nitrogen [Mass/volume] in Serum or Plasma 04-10 [facility] WBC Auto (Bld) [#/Vol]Ordere d By: Kelly France on 11-07-2024 WBC (Bld) [#/Vol] Leukocytes [#/volume ] in Blood by Automated count 3.8-11.6 [facility] Urinalysis macro (dipstick) panel (U)on 11-04-2024 Bilirubin, UA Negative Negative - 4(70) +++ mg/dL [facility] Blood, UA Positive Negative - 50 Hong/mcL [facility] Comment on above: moderate Clarity, UA Clear [facility] Color, UA Marylu [facility] Glucose, UA Negative Negative - 1999(110) ++++ mg/dL [facility] Interpretation and review of laboratory results Abnormal [facility] Ketones, UA Negative Negative - 160(16) ++++ mg/dL [facility] Leukocytes, UA Negative Negative - 500+++ Iqra/mcL [facility] Nitrite, UA Negative Negative - Positive [facility] pH, UA 6 5 - 9 [facility] Protein, UA Negative Negative - 1999(20) ++++ mg/dL [facility] Spec Grav, UA 1.025 1 - 1.03 [facility] Urobilinogen, UA 1.0 0.2 - 12 mg/dL [facility] IGP,APTIMA HPV,AGE GDLNon AGE GDLN ACOG TESTING Note . [facility] Comment on above: TESTS RESULT FLAG UN ITS REF RANGE LAB Clinician Provided Cytology Information Source.............Cervix Other.............. No. of containers..01 ThinPrep Vial Age Algo ACOG Diana... 32 FLAG LEGEND: L-Low Normal,H-High Normal,LL-Alert Low,HH-Alert High <-Panic Low,>-Panic High,A-Abnormal,AA-Critical Abnormal Performed at: 01 =[address] [address] Doreen Payne MD, HPV APTIMA Positive Abnormal Negative [facility] Comment on above: This nucleic acid am plification test detects fourteen high- risk HPV types (16,18,31,33,35,39,45,51,52,56,58,59,66,68) without differentiation. Performed at: = - [address] [id number] School Bus Dispatcher: Doreen Payne MD, Phone: [phone] Performed at: [facility] [id number] [place] [id number] School Bus Dispatcher: Marcin Alarcon MD, Phone: [phone] IGP, APTIMA HPV, RFX 16/18,45 Note Abnormal . [facility] Comment on above: TESTS RESULT FLAG UN ITS REF RANGE LAB DIAGNOSIS: [A] 02 EPITHELIAL CELL ABNORMALITY. LOW GRADE SQUAMOUS INTRAEPITHELIAL LESION (LSIL). Recommendation: [A] 02 Suggest follow up as clinically appropriate. Specimen adequacy: 02 Satisfactory for evaluation. No endocervical component is identified. Performed by: 02 Michael Streeter Blind Eyeletter (ASCP) Electronically si... Winter Santo MD, Pathologist . 02 Pathologist [...] High,A-Abnormal,AA-Critical Abnormal Performed at: 02 [facility]to [facility] [address] [place] [address] Marcin Alarcon MD, 03 WB [facility] [address] [address] Doreen Payne MD, Interpretation and review of laboratory results Abnormal [facility] SPATULA-ALONE CERVIX [facility] Urinalysis macro (dipstick) panel (U)on 10-14-2024 Bilirubin, UA Negative Negative - 4(70) +++ mg/dL [facility] Blood, UA Positive Negative - 50 Hong/mcL [facility] Clarity, UA Clear [facility] Color, UA Yellow [facility] Glucose, UA Negative Negative - 2000(110) ++++ mg/dL [facility] Interpretation and review of laboratory results Abnormal [facility] Ketones, UA Negative Negative - 160(16) ++++ mg/dL [facility] Leukocytes, UA Negative Negative - 500+++ Iqra/mcL [facility] Nitrite, UA Negative Negative - Positive [facility] pH, UA 7 5 - 9 [facility] Protein, UA Negative Negative - 1999(20) ++++ mg/dL [facility] Spec Grav, UA 1.025 1 - 1.03 [facility] Urobilinogen, UA 1.0 0.2 - 12 mg/dL [facility] ALL CBC WITH AUTO DIFFon BASOPHILS ABSOLUTE AUTO 0 [facility] Basophils/100 WBC (Bld) 0.1 % Low 0.2 - 2.0 % [facility] Eosinophils/100 WBC (Bld) 1.4 % 0.9 - 7.0 % [facility] Erythrocyte distribution width (RBC) [Ratio] 13.6 % 11.0 - 15.0 % [facility] Hematocrit (Bld) [Volume fraction] 34.1 % Low 36.0 - 48.0 % [facility] Hemoglobin (Bld) [Mass/Vol] 10.5 g/dL Low 12.0 - 16.0 g/dL [facility] IMMATURE GRANULOCYTES ABS AUTO 0.03 [facility] Immature granulocytes/100 WBC (Bld) 0.4 % 0.0 - 0.5 % [facility] Interpretation and review of laboratory results Abnormal [facility] LYMPHOCYTES ABSOLUTE AUTO 1.3 [facility] Lymphocytes/100 WBC (Bld) 18.3 % Low 20.5 - 60.0 % [facility] MCH (RBC) [Entitic mass] 23 pg Low 26.7 - 34.0 pg [facility] MCHC (RBC) [Mass/Vol] 30.8 g/dL 29.9 - 35.2 g/dL [facility] MCV (RBC) [Entitic vol] 74.8 fL Low 81.0 - 99.0 fL [facility] MONOCYTES ABSOLUTE AUTO 0.5 [facility] Monocytes/100 WBC (Bld) 6.3 % 1.7 - 12.0 % [facility] NEUTROPHILS ABSOLUTE AUTO 5.3 [facility] Neutrophils/100 WBC (Bld) 73.5 % 43.0 - 75.0 % [facility] Platelet mean volume (Bld) [Entitic vol] 11.1 fL 9.5 - 13.5 fL [facility] TBH EO # 0.1 [facility]H PLT 230 [facility] TB RBC 4.56 [facility]H WBC 7.2 [facility] Urinalysis macro (dipstick) panel (U)on 09-11-2024 Bilirubin, UA Negative Negative - 4(70) +++ mg/dL [facility] Blood, UA Positive Negative - 50 Hong/mcL [facility] Comment on above: trace Clarity, UA Clear [facility] Color, UA Yellow [facility] Glucose, UA Negative Negative - 1999(110) ++++ mg/dL [facility] Interpretation and review of laboratory results Abnormal [facility] Ketones, UA Negative Negative - 160(16) ++++ mg/dL [facility] Leukocytes, UA Trace Negative - 500+++ Iqra/mcL [facility] Nitrite, UA Negative Negative - Positive [facility] pH, UA 7 5 - 9 [facility] Protein, UA Negative Negative - 1999(20) ++++ mg/dL [facility] Spec Grav, UA 1.01 1 - 1.03 [facility] Urobilinogen, UA 0.2 0.2 - 12 mg/dL [facility] Urine Cultureon 09-11-2024 Bacteria identified Cx Nom (U) >100,000 colonies/ml mixed bacterial skin contaminants 2 Days PERFORMED BY: [place] [address] PATHOLOGIST CAMPUS RECRUITING COORDINATOR TRISTEN MOSELEY M.D. Normal [facility] Comment on above: Performed By: #### C OVID19 FLU RSV, CEPHEID NEG #### [address] Urine cultureOrdered By: David Pendleton on 09-11-2024 Bacteria identified Cx Nom (U) Urine culture [facility] HCG ( test) Ql (U)o n 08-26-2024 Interpretation and review of laboratory results Abnormal [facility] Preg Test, Ur Positive Negative [facility] Urinalysis macro (dipstick) panel (U)on 08-26-2024 Bilirubin, UA Negative Negative - 4(70) +++ mg/dL [facility] Blood, UA Negative Negative - 50 Hong/mcL [facility] Clarity, UA Clear [facility] Color, UA Yellow [facility] Glucose, UA Negative Negative - 1999(110) ++++ mg/dL [facility] Interpretation and review of laboratory results Abnormal [facility] Ketones, UA Positive Negative - 160(16) ++++ mg/dL [facility] Leukocytes, UA Negative Negative - 500+++ Iqra/mcL [facility] Nitrite, UA Negative Negative - Positive [facility] pH, UA 7 5 - 9 [facility] Protein, UA Negative Negative - 2000(20) ++++ mg/dL [facility] Spec Grav, UA 1.015 1 - 1.03 [facility] Urobilinogen, UA 1.0 0.2 - 12 mg/dL [facility] ECG 12 lead ECGon 08-07-2024 ECG 12 lead ECG [facility] Main [address] [address] Electrocardiograph Report Signed Patient: Leandra Fonseca MR#: [id number] : 1990 Acct:[id number] Age/Sex: 34 / F ADM Date: 08/06/24 Loc: Room: [address] [place] [address] Type: ADM IN Attending Dr: Julián Naqvi [...] by 30 bpm Confirmed by Brock Rowe ([id number]) on 08/07/2024 5:03:20 PM Referred By: Electronically Signed By: Brock Rowe Transcribed By: MUS Signed By Brock Rowe MD 08/07/24 5167 Normal [facility] US OB transvaginalon 024 US OB transvaginal [facility] Main [address] [address] Ultrasound Report Signed Patient: Leandra Fonseca MR#: [id number] : 1990 Acct:[id number] Age/Sex: 34 / F ADM Date: 08/06/24 Loc: Room: 9F6436-6 Type: ADM IN Attending Dr: Julián Naqvi MD Ordering Provider: Julián Naqvi MD; TAM TRACY MD Date of Service: 08/07/24 US/US OB <= 14 weeks fetus: dating and anatomy ([id number]) US/US OB transvaginal: . Copies to: MD [...] Michell Miller M.D.08/07/2024 6:32 PM Dictation Location: [place] [address] Tech: Tena Romero Transcribed By: CHRISTINE 08/07/241831 Dictated By: Michell Miller MD 08/07/241824 Signed By: 08/07/241831 Normal [facility] Alanine aminotransferase [En zymatic activity/volume] in Serum or PlasmaOrdered By: Marvin Serrano on 08-06-2024 ALT [Catalytic activity/Vol] Alanine aminotransferase [Enzymatic activity/volume] in Serum or Plasma 7-52 [facility] Albumin [Mass/volume] in Ser um or Plasma by Bromocresol green (BCG) dye binding methoOrdered By: Marvin Serrano on 08-06-2024 Albumin BCG dye [Mass/Vol] Albumin [Mass/volume] in Serum or Plasma by Bromocresol green (BCG) dye binding metho 3.5-5.7 [facility] Alkaline phosphatase [Enzyma tic activity/volume] in Serum or PlasmaOrdered By: Marvin Serrano on 08-06-2024 ALP [Catalytic activity/Vol] Alkaline phosphatase [Enzymatic activity/volume] in Serum or Plasma 34-104 [facility] Amphetamine Screen Ql (U)Ord ered By: Marvin Serrano on 08-06-2024 Amphetamines Ql (U) Amphetamines screen Negativ e [facility] Appearance of UrineOrdered B y: Marvin Serrano on 08-06-2024 Appearance (U) Urine appearance Clear [facility] Aspartate aminotransferase [ Enzymatic activity/volume] in Serum or PlasmaOrdered By: Marvin Serrano on 08-06-2024 AST [Catalytic activity/Vol] Aspartate aminotransferase [Enzymatic activity/volume] in Serum or Plasma Low 13-39 [facility] Bacteria [Presence] in Urine by AutomatedOrdered By: Marvin Serrano on 08-06-2024 Bacteria Auto Ql (U) Bacteria [Presence] in Urine by Automated None Seen [facility] Barbiturates [Presence] in U rine by Screen methodOrdered By: Marvin Serrano on 08-06-2024 Barbiturates Screen Ql (U) Barbiturates [Presence] in Urine by Screen method Negative [facility] Basophils Auto (Bld) [#/Vol] Ordered By: Marvin Serrano on 08-06-2024 Basophils (Bld) [#/Vol] Automated basophil count 0.0-0.2 [facility] Basophils/100 WBC Auto (Bld) Ordered By: Marvin Serrano on 08-06-2024 Basophils/100 WBC (Bld) Automated basophil % . [facility] Benzodiazepines Screen Ql (U )Ordered By: Marvin Serrano on 08-06-2024 Benzodiazepines Ql (U) Benzodiazepines [ Presence] in Urine by Screen method Negative [facility] Benzoylecgonine [Presence] i n Urine by Screen methodOrdered By: Marvin Serrano on 08-06-2024 Benzoylecgonine Screen Ql (U) Benzoylecgonine [Presence] in Urine by Screen method Negative [facility] Bilirubin Test strip Ql (U)O rdered By: Marvin Serrano on 08-06-2024 Bilirubin Ql (U) Bilirubin.total [Pre sence] in Urine by Test strip Negative [facility] Bilirubin.total [Mass/volume ] in Serum or PlasmaOrdered By: Marvin Serrano on 08-06-2024 Bilirubin [Mass/Vol] Bilirubin.total [Mass/volume] in Serum or Plasma 0.3-1.0 [facility] Calcium [Mass/volume] in Ser um or PlasmaOrdered By: Marvin Serrano on 08-06-2024 Calcium [Mass/Vol] Calcium [Mass/volume ] in Serum or Plasma 8.6-10.3 [facility] Cannabinoids [Presence] in U rine by Screen methodOrdered By: Marvin Serrano on 08-06-2024 Cannabinoids Screen Ql (U) Cannabinoids [Presence] in Urine by Screen method Negative [facility] Comment on above: These are unconfirme d [...] l [Moles/volume] in Serum or Plasma 21.0-31.0 [facility] Chloride [Moles/volume] in S salas or PlasmaOrdered By: Marvin Serrano on 08-06-2024 Chloride [Moles/Vol] Chloride [Moles/vol ume] in Serum or Plasma 98-107 [facility] Choriogonadotropin.beta subu nit [Units/volume] in Serum or PlasmaOrdered By: Marvin Serrano on 08-06-2024 HCG.beta subunit Qn Choriogonadotropin.b eta subunit [Units/volume] in Serum or Plasma [facility] Comment on above: Approximate Approxim ate hCG Gestational Age Range (mIU/ml) (weeks)0.2-1 5-50 1-2 50-500 2-3 100-5,000 3-4 500-10,000 4-5 1,000-50,000 5-6 10,000-100,000 6-8 15,000-200,000 8-12 10,000-100,000 Color Auto (U)Ordered By: Dane Serrano on 08-06-2024 Color (U) Color of Urine by Auto Yellow [facility] Complete Blood Count Auto Di ffon 08-06-2024 Basophils (Bld) [#/Vol] 0.1 10*3/uL Normal 0.0-0.2 [facility] Comment on above: Result Comment: PERF ORMED BY: [place] [address] PATHOLOGIST CAMPUS RECRUITING COORDINATOR TRISTEN MOSELEY M.D. Performed By: #### E NATALIE, CBC, CMP #### [facility] [address] [place] [address] Basophils/100 WBC (Bld) 0.7 % Normal . [facility] Comment on above: Performed By: #### E NATALIE, CBC, CMP #### [facility] [address] Eosinophils (Bld) [#/Vol] 0.1 10*3/uL Normal 0.0-0.45 [facility] Comment on above: Performed By: #### E NATALIE, CBC, CMP #### [address] Eosinophils/100 WBC (Bld) 0.8 % Normal . [facility] Comment on above: Performed By: #### E NATALIE CBC, CMP #### [address] Erythrocyte distribution width (RBC) [Ratio] 14.0 % Normal 11.9-15.3 [facility] Comment on above: Performed By: #### E NATALIE, CBC, CMP #### [address] Hematocrit (Bld) [Volume fraction] 33.2 % Low 34.0-46.4 [facility] Comment on above: Performed By: #### E NATALIE CBC, CMP #### [address] Hemoglobin (Bld) [Mass/Vol] 10.5 g/dL Low 11.8-15.4 [facility] Comment on above: Performed By: #### E NATALIE, CBC, CMP #### [address] Lymphocytes (Bld) [#/Vol] 1.0 10*3/uL Normal 1.00-4.8 [facility] Comment on above: Performed By: #### E NATALIE CBC, CMP #### [address] Lymphocytes/100 WBC (Bld) 12.7 % Normal . [facility] Comment on above: Performed By: #### E NATALIE, CBC, CMP #### [address] MCH (RBC) [Entitic mass] 23.0 pg Low 24.7-34.3 [facility] Comment on above: Performed By: #### E NATALIE, CBC, CMP #### [address] MCV (RBC) [Entitic vol] 73.0 fL Low 80-100 [facility] Comment on above: Performed By: #### E NATALIE, CBC, CMP #### [address] Mean Corpuscular HGB Conc 31.5 g/dL Low 32.0-35.0 [facility] Comment on above: Performed By: #### E NATALIE, CBC, CMP #### [address] Monocytes (Bld) [#/Vol] 0.5 10*3/uL Normal 0.0-0.8 [facility] Comment on above: Performed By: #### E NATALIE, CBC, CMP #### [place] [address] [place] Monocytes/100 WBC (Bld) 17.93 % Normal 0.00-20.00 [facility] Comment on above: Performed By: #### E NATALIE, CBC, CMP #### [address] Monocytes/100 WBC (Bld) 6.8 % Normal . [facility] Comment on above: Performed By: #### E NATALIE, CBC, CMP #### [address] Neutrophils (Bld) [#/Vol] 6.2 10*3/uL Normal 1.8-7.7 [facility] Comment on above: Performed By: #### E NATALIE, CBC, CMP #### [address] Neutrophils/100 WBC (Bld) 79.0 % Normal . [facility] Comment on above: Performed By: #### E NATALIE, CBC, CMP #### [address] NRBC% 0.0 /100{WBC} Normal 0-0.5 [facility] Comment on above: Performed By: #### E NATALIE, CBC, CMP #### [address] Platelet mean volume (Bld) [Entitic vol] 9.3 fL Normal 6.3-10.7 [facility] Comment on above: Performed By: #### E NATALIE CBC, CMP #### [address] Platelets (Bld) [#/Vol] 220 10*3/uL Normal 150-450 [facility] Comment on above: Performed By: #### E NATALIE CBC, CMP #### [address] RBC (Bld) [#/Vol] 4.55 10*6/uL Normal 3.60-5.00 [facility] Comment on above: Performed By: #### E NATALIE CBC, CMP #### [address] WBC (Bld) [#/Vol] 7.9 10*3/uL Normal 3.8-11.6 [facility] Comment on above: Performed By: #### E NATALIE CBC, CMP #### [address] Comprehensive Metabolic Pane tommie 08-06-2024 Albumin [Mass/Vol] 4.0 g/dL Normal 3.5-5.7 [facility] Comment on above: Performed By: #### E WANDA ESTRADA, CMP #### [address] Albumin/Globulin [Mass ratio] 1.3 {ratio} Normal [facility] Comment on above: Performed By: #### E NATALIE CBC, CMP #### [address] ALP [Catalytic activity/Vol] 44 U/L Normal 34-104 [facility] Comment on above: Performed By: #### E NATALIE CBC, CMP #### [address] ALT [Catalytic activity/Vol] 7 U/L Normal 7-52 [facility] Comment on above: Performed By: #### E NATALIE CBC, CMP #### [address] Anion gap [Moles/Vol] 11.0 mmol/L Normal 6.0-15.0 [facility] Comment on above: Performed By: #### E WANDA ESTRADA, CMP #### [address] AST [Catalytic activity/Vol] 11 U/L Low 13-39 [facility] Comment on above: Performed By: #### E NATALIE CBC, CMP #### [address] Bilirubin [Mass/Vol] 0.6 mg/dL Normal 0.3-1.0 [facility] Comment on above: Performed By: #### E WANDA ESTRADA, CMP #### [address] Calcium [Mass/Vol] 9.0 mg/dL Normal 8.6-10.3 [facility] Comment on above: Performed By: #### Albino ESTRADA CBC, CMP #### [address] Chloride [Moles/Vol] 107 mmol/L Normal 98-107 [facility] Comment on above: Performed By: #### WANDA RIVERA, CMP #### [address] CO2 [Moles/Vol] 22.7 mmol/L Normal 21.0-31.0 [facility] Comment on above: Performed By: #### E NATALIE CBC, CMP #### [address] Creatinine [Mass/Vol] 0.64 mg/dL Normal 0.60-1.20 [facility] Comment on above: Performed By: #### E NATALIE CBC, CMP #### [address] Creatinine Clr Calc Pharmacy 119.09 Normal [facility] Comment on above: Result Comment: PERF ORMED BY: [place] [address] PATHOLOGIST CAMPUS RECRUITING COORDINATOR TRISTEN MOSELEY M.D. Performed By: #### E NATALIE CBC, CMP #### [facility] [address] GFR/1.73 sq M.predicted MDRD (S/P/Bld) [Vol rate/Area] mL/min/{1.73_m2} Normal [facility] Comment on above: Performed By: #### E NATALIE CBC, CMP #### [facility] [address] Globulin (S) [Mass/Vol] 3.0 g/dL Normal [facility] Comment on above: Performed By: #### E NATALIE CBC, CMP #### [address] Glucose [Mass/Vol] 98 mg/dL Normal 70-100 [facility] Comment on above: Result Comment: [place] Glucose Reference Range is dependent on time and content of last meal. Glucose of more than 200 mg/dL in a nonstressed, ambulatory subject supports the diagnosis of Diabetes Mellitus. ADA recommended reference range Performed By: #### E WANDA ESTRADA, CMP #### [address] Potassium [Moles/Vol] 3.7 mmol/L Normal 3.5-5.1 [facility] Comment on above: Performed By: #### E WANDA ESTRADA, CMP #### [place] [address] [place] Protein [Mass/Vol] 7.0 g/dL Normal 6.4-8.9 [facility] Comment on above: Performed By: #### E NATALIE CBC, CMP #### [place] [address] [place] Sodium [Moles/Vol] 137 mmol/L Normal 136-145 [facility] Comment on above: Performed By: #### E NATALIE CBC, CMP #### [address] Urea nitrogen [Mass/Vol] 7 mg/dL Normal 7-25 [facility] Comment on above: Performed By: #### E NATALIE, CBC, CMP #### [facility] [address] [place] [address] Creatinine [Mass/volume] in Serum or PlasmaOrdered By: Marvin Serrano on 08-06-2024 Creatinine [Mass/Vol] Creatinine [Mass/v olume] in Serum or Plasma 0.60-1.20 [facility] Dipstick and Microscopicon 1 10-06-2023 Appearance (U) Clear Normal Clear [facility] Comment on above: Order Comment: Name Collection Type:: Clean-Voided Midstream Performed By: #### A DDONUAPLUS, UHCG, URDS #### [address] Bacteria,Urine Rare Normal None Seen [facility] Comment on above: Order Comment: Name Collection Type:: Clean-Voided Midstream Performed By: #### A DDONUAPLUS, UHCG, URDS #### [address] Bilirubin,Urine Negative Normal Negative [facility] Comment on above: Order Comment: Name Collection Type:: Clean-Voided Midstream Performed By: #### A DDONUAPLUS, UHCG, URDS #### [address] Color (U) Light-Yellow Normal Yellow [facility] Comment on above: Order Comment: Name Collection Type:: Clean-Voided Midstream Performed By: #### A DDONUAPLUS, UHCG, URDS #### [address] Glucose Ql (U) Normal Normal Normal [facility] Comment on above: Order Comment: Name Collection Type:: Clean-Voided Midstream Performed By: #### A DDONUAPLUS, UHCG, URDS #### [address] Hyaline Casts,Urine None Normal 0-8 [facility] Comment on above: Order Comment: Name Collection Type:: Clean-Voided Midstream Performed By: #### A DDONUAPLUS, UHCG, URDS #### [address] Ketones Ql (U) 3+ High Negative [facility] Comment on above: Order Comment: Name Collection Type:: Clean-Voided Midstream Performed By: #### A DDONUAPLUS, UHCG, URDS #### [address] Leukocyte esterase Test strip Ql (U) Negative Normal Negative [facility] Comment on above: Order Comment: Name Collection Type:: Clean-Voided Midstream Performed By: #### A DDONUAPLUS, UHCG, URDS #### [address] Mucus,Urine Rare Normal [facility] Comment on above: Order Comment: Name Collection Type:: Clean-Voided Midstream Performed By: #### A DDONUAPLUS, UHCG, URDS #### [address] Nitrite,Urine Negative Normal Negative [facility] Comment on above: Order Comment: Name Collection Type:: Clean-Voided Midstream Performed By: #### A DDONUAPLUS, UHCG, URDS #### [address] Occult Blood,Urine Trace High Negative [facility] Comment on above: Order Comment: Name Collection Type:: Clean-Voided Midstream Performed By: #### A DDONUAPLUS, UHCG, URDS #### [address] pH (U) 7.0 [pH] Normal 5.0-9.0 [facility] Comment on above: Order Comment: Name Collection Type:: Clean-Voided Midstream Performed By: #### A DDONUAPLUS, UHCG, URDS #### [address] Protein,Urine Negative Normal Negative [facility] Comment on above: Order Comment: Name Collection Type:: Clean-Voided Midstream Performed By: #### A DDONUAPLUS, UHCG, URDS #### [address] RBC,Urine 1 [HPF] Normal 0-4 [facility] Comment on above: Order Comment: Name Collection Type:: Clean-Voided Midstream Performed By: #### A DDONUAPLUS, UHCG, URDS #### [address] Specificy [place],Urine 1.016 Normal 1.001-1.03 0 [facility] Comment on above: Order Comment: Name Collection Type:: Clean-Voided Midstream Performed By: #### A DDONUAPLUS, UHCG, URDS #### [address] Squamous Epithelial Cell,Urine 5 [HPF] High 0-2 [facility] Comment on above: Order Comment: Name Collection Type:: Clean-Voided Midstream Performed By: #### A DDONUAPLUS, UHCG, URDS #### [address] Urobilinogen,Urine Normal Normal Normal [facility] Comment on above: Order Comment: Name Collection Type:: Clean-Voided Midstream Performed By: #### A DDONUAPLUS, UHCG, URDS #### [address] WBC,Urine 1 [HPF] Normal 0-4 [facility] Comment on above: Order Comment: Name Collection Type:: Clean-Voided Midstream Performed By: #### A DDONUAPLUS, UHCG, URDS #### [address] Drug Screen,Urineon 08-06-20 24 Amphetamine Screen,Urine Negative Normal Negative [facility] Comment on above: Performed By: #### A DDONUAPLUS, UHCG, URDS #### [address] Barbiturate Screen,Urine Negative Normal Negative [facility] Comment on above: Performed By: #### A DDONUAPLUS, UHCG, URDS #### [address] Benzodiazepines Screen,Urine Negative Normal Negative [facility] Comment on above: Performed By: #### A DDONUAPLUS, UHCG, URDS #### [address] Cannabinoid Screen,Urine Negative Normal Negative [facility] Comment on above: Result Comment: Thes e are unconfirmed results and should not be used for legal purposes. Drug Cut-Off Concentration: AMPH 1000 ng/mL BEKA 200 ng/mL CALDERON 200 ng/mL COCM 300 ng/mL OP 300 ng/mL PCP 25 ng/mL THC 20 ng/mL PERFORMED BY: [place] [address] PATHOLOGIST CAMPUS RECRUITING COORDINATOR TRISTEN MOSELEY M.D. Performed By: #### A DDONUAPLUS, UHCG, URDS #### [address] Cocaine Screen,Urine Negative Normal Negative [facility] Comment on above: Performed By: #### A DDONUAPLUS, UHCG, URDS #### [address] Opiate Screen,Urine Negative Normal Negative [facility] Comment on above: Performed By: #### A DDONUAPLUS, UHCG, URDS #### [address] Phencyclidine Screen,Urine Negative Normal Negative [facility] Comment on above: Performed By: #### A DDONUAPLUS, UHCG, URDS #### [address] Eosinophils Auto (Bld) [#/Vo l]Ordered By: Marvin Serrano on 08-06-2024 Eosinophils (Bld) [#/Vol] Automated eosinophil count 0.0-0.45 [facility] Eosinophils/100 WBC Auto (Bl d)Ordered By: Marvin Serrano on 08-06-2024 Eosinophils/100 WBC (Bld) Automated eosinophil % . [facility] Epithelial cells.squamous [# /area] in Urine sediment by Automated countOrdered By: Marvin Serrano on 08-06-2024 Epithelial cells.squamous Auto (Urine sed) [#/Area] Epithelial cells.squamous [#/area] in Urine sediment by Automated count High 0-2 [facility] Erythrocyte distribution wid th Auto (RBC) [Ratio]Ordered By: Marvin Serrano on 08-06-2024 Erythrocyte distribution width (RBC) [Ratio] Erythrocyte distribution width [Ratio] by Automated count 11.9-15.3 [facility] Erythrocytes [#/area] in Uri ne sediment by Automated countOrdered By: Marvin Serrano on 08-06-2024 RBC Auto (Urine sed) [#/Area] Erythrocytes [#/area] in Urine sediment by Automated count 0-4 [facility] Ethanol [Mass/volume] in Ser um or PlasmaOrdered By: Marvin Serrano on 08-06-2024 Ethanol [Mass/Vol] Ethanol [Mass/volume ] in Serum or Plasma [facility] Comment on above: Test not performed Ethyl Alcohol Profileon 07-19 Ethanol [Mass/Vol] mg/dL Normal [facility] Comment on above: Performed By: #### E NATALIE, CBC, CMP #### [facility] [address] Percent Ethanol Not performed Normal [facility] Comment on above: Result Comment: PERF ORMED BY: [address] [place] [address] PATHOLOGIST CAMPUS RECRUITING COORDINATOR TRISTEN MOSELEY M.D. Performed By: #### E NATALIE, CBC, CMP #### [facility] [address] Globulin Calc (S) [Mass/Vol] Ordered By: Marvin Serrnao on 08-06-2024 Globulin (S) [Mass/Vol] Serum globulin measurement by calculation (mass/volume) [facility] Glucose [Mass/volume] in Ser um or PlasmaOrdered By: Marvin Serrano on 08-06-2024 Glucose [Mass/Vol] Glucose [Mass/volume ] in Serum or Plasma 70-100 [facility] Comment on above: ADA recommended [...] [Mass/volume] in Urine by Test strip Normal [facility] HCG ( test) IA.rapi d Ql (U)Ordered By: Marvin Serrano on 08-06-2024 HCG ( test) Ql (U) Urine human chorionic gonadotropin (hCG) detection by immunoassay [facility] HCG,Quantitativeon HCG,Quantitative 28788.00 m[iU]/mL Normal [facility] Comment on above: Result Comment: Appr oximate Approximate hCG Gestational Age Range (mIU/ml) (weeks) 0.2-1 5-50 1-2 50-500 2-3 100-5,000 3-4 500-10,000 4-5 1,000-50,000 5-6 10,000-100,000 6-8 15,000-200,000 8-12 10,000-100,000 PERFORMED BY: [facility] [address] [place] [address] PATHOLOGIST CAMPUS RECRUITING COORDINATOR TRISTEN MOSELEY M.D. Performed By: #### C OVID19 FLU RSV, CEPHEID NEG #### [facility] [address] HCG,Urineon 08-06-2024 Beta HCG ( test) Ql (U) Positive [facility] Comment on above: Order Comment: Name Collection Type:: Clean-Voided Midstream Result Comment: PERF ORMED BY: [facility] [address] [place] [address] PATHOLOGIST CAMPUS RECRUITING COORDINATOR TRISTEN MOSELEY M.D. Performed By: #### A DDONUAPLUS, UHCG, URDS #### [facility] [address] [place], [place] [id number] [facility] Hematocrit Auto (Bld) [Volum e fraction]Ordered By: Marvin Serrano on 08-06-2024 Hematocrit (Bld) [Volume fraction] Hematocrit [Volume Fraction] of Blood by Automated count Low 34.0-46.4 [facility] Hemoglobin Test strip Ql (U) Ordered By: Marvin Serrano on 08-06-2024 Hemoglobin Ql (U) Hemoglobin [Presence ] in Urine by Test strip High Negative [facility] Hemoglobin [Mass/volume] in BloodOrdered By: Marvin Serrano on 08-06-2024 Hemoglobin (Bld) [Mass/Vol] Hemoglobin [Mass/volume] in Blood Low 11.8-15.4 [facility] Hyaline casts [#/area] in Ur ine sediment by Automated countOrdered By: Marvin Serrano on 08-06-2024 Hyaline casts Auto (Urine sed) [#/Area] Hyaline casts [#/area] in Urine sediment by Automated count 0-8 [facility] Ketones Test strip Ql (U)Ord ered By: Marvin Serrano on 08-06-2024 Ketones Ql (U) Ketones [Presence] i n Urine by Test strip High Negative [facility] Leukocyte esterase [Presence ] in Urine by Test stripOrdered By: Marvin Serrano on 08-06-2024 Leukocyte esterase Test strip Ql (U) Leukocyte esterase [Presence] in Urine by Test strip Negative [facility] Leukocytes [#/area] in Urine sediment by Automated countOrdered By: Marvin Serrano on 08-06-2024 WBC Auto (Urine sed) [#/Area] Leukocytes [#/area] in Urine sediment by Automated count 0-4 [facility] Leukocytes [#/volume] correc delmer for nucleated erythrocytes in Blood by Automated counOrdered By: Marvin Serrano on 08-06-2024 WBC corrected for nucl RBC Auto (Bld) [#/Vol] Leukocytes [#/volume] corrected for nucleated erythrocytes in Blood by Automated coun 3.8-11.6 [facility] Lipid Panelon 08-06-2024 Cholesterol [Mass/Vol] 128 mg/dL Low 140-200 [facility] Comment on above: Order Comment: Comme nt use ER blood Result Comment: Chol less than 200 mg/dl low risk Chol 201-239 mg/dl borderline risk Chol 240 mg/dl and greater high risk Performed By: #### C OVID19 FLU RSV, CEPHEID NEG #### [facility] [address] [place] [address] [place] Cholesterol in HDL [Mass/Vol] 59 mg/dL Normal 23-92 [facility] Comment on above: Order Comment: Comme nt use ER blood Result Comment: HDL CHOL ATP-III CLASSIFICATION Cardiovascular Risk HDL > or equal to 60 mg/dL LOW HDL < 40 mg/dL HIGH Performed By: #### C OVID19 FLU RSV, CEPHEID NEG #### [facility] [address] Cholesterol.total/Chol esterol in HDL [Mass ratio] 2.2 {ratio} Normal <5.0 [facility] Comment on above: Order Comment: Comme nt use ER blood Performed By: #### C OVID19 FLU RSV, CEPHEID NEG #### [address] LDL Cholesterol,Calculated 63 mg/dL Normal 0-100 [facility] Comment on above: Order Comment: Comme nt use ER blood Result Comment: LDL ATP III CLASSIFICATION LDL less than 100 mg/dL Optimal LDL 100-129 mg/dL Near or above optimal LDL 130-159 mg/dL Borderline high LDL 160-189 mg/dL High LDL greater than 189 mg/dL Very high Performed By: #### C OVID19 FLU RSV, CEPHEID NEG #### [place] [address] [place] Triglyceride w/Reflex 29 mg/dL Normal 0-149 [facility] Comment on above: Order Comment: Comme nt use ER blood Result Comment: TRIG ATP III CLASSIFICATION TRIG less than 150 mg/dL Normal TRIG 150-199 mg/dL Borderline high TRIG 200-500 mg/dL High TRIG greater than 500 mg/dL Very high Standard traceable to the Center for Disease Conrtrol and Prevention (CDC) test method. Performed By: #### C OVID19 FLU RSV, CEPHEID NEG #### [facility] [address] VLDL CHOLESTEROL 5 mg/dL Normal [facility] Comment on above: Order Comment: Comme nt use ER blood Performed By: #### C OVID19 FLU RSV, CEPHEID NEG #### [facility] [address] [place] [id number] [facility] Lymphocytes Auto (Bld) [#/Vo l]Ordered By: Marvin Serrano on 08-06-2024 Lymphocytes (Bld) [#/Vol] Lymphocytes [#/volume] in Blood by Automated count 1.00-4.8 [facility] Lymphocytes/100 WBC Auto (Bl d)Ordered By: Marvin Serrano on 08-06-2024 Lymphocytes/100 WBC (Bld) Lymphocytes/100 leukocytes in Blood by Automated count . [facility] MCH Auto (RBC) [Entitic mass ]Ordered By: Marvin Serrano on 08-06-2024 MCH (RBC) [Entitic mass] MCH [Entitic mass] by Automated count Low 24.7-34.3 [facility] MCHC Auto (RBC) [Mass/Vol]Or dered By: Marvin Serrano on 08-06-2024 MCHC (RBC) [Mass/Vol] MCHC [Mass/volume] by Automated count Low 32.0-35.0 [facility] MCV Auto (RBC) [Entitic vol] Ordered By: Marvin Serrano on 08-06-2024 MCV (RBC) [Entitic vol] MCV [Entitic volume] by Automated count Low 80-100 [facility] Monocyte distribution width [Entitic volume] in Blood by AutomatedOrdered By: Marvin Serrano on 08-06-2024 Monocyte distribution width Auto (Bld) [Entitic vol] Monocyte distribution width [Entitic volume] in Blood by Automated 0.00-20.00 [facility] Monocytes Auto (Bld) [#/Vol] Ordered By: Marvin Serrano on 08-06-2024 Monocytes (Bld) [#/Vol] Automated blood monocyte count 0.0-0.8 [facility] Monocytes/100 WBC Auto (Bld) Ordered By: Marvin Serrano on 08-06-2024 Monocytes/100 WBC (Bld) Automated monocyte % . [facility] Mucus [Presence] in Urine by AutomatedOrdered By: Marvin Serrano on 08-06-2024 Mucus Auto Ql (U) Mucus [Presence] in Urine by Automated [facility] Neutrophils Auto (Bld) [#/Vo l]Ordered By: Marvin Serrano on 08-06-2024 Neutrophils (Bld) [#/Vol] Neutrophils [#/volume] in Blood by Automated count 1.8-7.7 [facility] Neutrophils/100 WBC Auto (Bl d)Ordered By: Marvin Serrano on 08-06-2024 Neutrophils/100 WBC (Bld) Automated neutrophil % . [facility] Nitrite Test strip Ql (U)Ord ered By: Marvin Serrano on 08-06-2024 Nitrite Ql (U) Nitrite [Presence] i n Urine by Test strip Negative [facility] No Panel InformationOrdered By: Marvin Serrano on 08-06-2024 Estimated GFR (CKD-EPI) > 60.0 mL/Min [facility] Creatinine Clearance (Chem 119.09 [facility] Nucleated erythrocytes [Pres ence] in Blood by Automated countOrdered By: Marvin Serrano on 08-06-2024 Nucleated RBC Auto Ql (Bld) Nucleated erythrocytes [Presence] in Blood by Automated count 0-0.5 [facility] Opiates [Presence] in Urine by Screen methodOrdered By: Marvin Serrano on 08-06-2024 Opiates Screen Ql (U) Opiates [Presence] in Urine by Screen method Negative [facility] Phencyclidine Screen Ql (U)O rdered By: Marvin Serrano on 08-06-2024 Phencyclidine Ql (U) Phencyclidine [Pres ence] in Urine by Screen method Negative [facility] Platelet mean volume Auto (B ld) [Entitic vol]Ordered By: Marvin Serrano on 08-06-2024 Platelet mean volume (Bld) [Entitic vol] Platelet mean volume [Entitic volume] in Blood by Automated count 6.3-10.7 [facility] Platelets Auto (Bld) [#/Vol] Ordered By: Marvin Serrano on 08-06-2024 Platelets (Bld) [#/Vol] Platelets [#/volume] in Blood by Automated count 150-450 [facility] Potassium [Moles/volume] in Serum or PlasmaOrdered By: Marvin Serrano on 08-06-2024 Potassium [Moles/Vol] Potassium [Moles/v olume] in Serum or Plasma 3.5-5.1 [facility] Protein Test strip (U) [Mass /Vol]Ordered By: Marvin Serrano on 08-06-2024 Protein (U) [Mass/Vol] Protein [Mass/vol ume] in Urine by Test strip Negative [facility] Protein [Mass/volume] in Ser um or PlasmaOrdered By: Marvin Serrano on 08-06-2024 Protein [Mass/Vol] Protein [Mass/volume ] in Serum or Plasma 6.4-8.9 [facility] RBC Auto (Bld) [#/Vol]Ordere d By: Marvin Serrano on 08-06-2024 RBC (Bld) [#/Vol] Erythrocytes [#/volu me] in Blood by Automated count 3.60-5.00 [facility] Serum or plasma albumin/glob ulin mass ratioOrdered By: Marvin Serrano on 08-06-2024 Albumin/Globulin [Mass ratio] Serum or plasma albumin/globulin mass ratio [facility] Serum or plasma anion gap de terminationOrdered By: Marvin Serrano on 08-06-2024 Anion gap [Moles/Vol] Serum or plasma an ion gap determination 6.0-15.0 [facility] Sodium [Moles/volume] in Ser um or PlasmaOrdered By: Marvin Serrano on 08-06-2024 Sodium [Moles/Vol] Sodium [Moles/volume ] in Serum or Plasma 136-145 [facility] Specific gravity Test strip (U) [Rel density]Ordered By: Marvin Serrano on 08-06-2024 Specific gravity (U) [Rel density] Specific gravity of Urine by Test strip 1.001-1.03 0 [facility] Thyroid Stim Hormone w/Rflxo n 08-06-2024 Thyroid Stim Hormone w/Rflx 1.33 u[iU]/mL Normal 0.45-5.33 [facility] Comment on above: Order Comment: Comme nt use ER blood Performed By: #### C OVID19 FLU RSV, CEPHEID NEG #### [facility] [address] Urea nitrogen [Mass/volume] in Serum or PlasmaOrdered By: Marvin Serrano on 08-06-2024 Urea nitrogen [Mass/Vol] Urea nitrogen [Mass/volume] in Serum or Plasma 7-25 [facility] Urobilinogen Test strip (U) [Mass/Vol]Ordered By: Marvin Serrano on 08-06-2024 Urobilinogen (U) [Mass/Vol] Urobilinogen [Mass/volume] in Urine by Test strip Normal [facility] Vitamin D 25 Hydroxy Totalon 08-06-2024 Vitamin D 25 Hydroxy Total 9.7 ng/mL Low 30-100 [facility] Comment on above: Order Comment: Comme nt use ER blood Result Comment: ALEXIA MIN D STATUS 25(OH)VITAMIN D RANGE (ng/mL) Deficient <20 Insufficient 20 to <30 Sufficient 30 to 100 Reference: Pam MF,Abelardo MUÑOZ, Cj GARZA, et al. Evaluation,treatment, and prevention of vitamin D deficiency; an Endocrine Society clinical practice guideline. JCEM. 2010; 96(7):1911-30. PERFORMED BY: [facility] [address] [place] [address] PATHOLOGIST CAMPUS RECRUITING COORDINATOR TRISTEN MOSELEY M.D. Performed By: #### C OVID19 FLU RSV, CEPHEID NEG #### [facility] [address] WBC Auto (Bld) [#/Vol]Ordere d By: Marvin Serrano on 08-06-2024 WBC (Bld) [#/Vol] Leukocytes [#/volume ] in Blood by Automated count 3.8-11.6 [facility] pH Test strip (U)Ordered By: Marvin Serrano on 08-06-2024 pH (U) pH of Urine by Test strip 5.0-9.0 [facility] PREG QUANT HCGon 08-04- 024 HCG QUANTITATIVE 4763 mIU/mL [facility] Comment on above: 5-50 0.2-1 WEEK 50-500 1-2 WEEKS 100-5,000 2-3 WEEKS 500-10,000 3-4 WEEKS 1,000-50,000 4-5 WEEKS 10,000-100,000 5-6 WEEKS 15,000-200,000 6-8 WEEKS 10,000-100,000 2-3 MONTHS [facility] PREG QUANT HCGon 16- 024 HCG QUANTITATIVE 2355 mIU/mL [facility] Comment on above: 5-50 0.2-1 WEEK 50-500 1-2 WEEKS 100-5,000 2-3 WEEKS 500-10,000 3-4 WEEKS 1,000-50,000 4-5 WEEKS 10,000-100,000 5-6 WEEKS 15,000-200,000 6-8 WEEKS 10,000-100,000 2-[facility] Alanine aminotransferase [En zymatic activity/volume] in Serum or PlasmaOrdered By: Sarah Dodd on 07-14-2024 ALT [Catalytic activity/Vol] 9 U/L Normal [facility] Comment on above: Performed By: #### E NATALIE CBC, CMP #### [facility] [address] [place] [address] ALT [Catalytic activity/Vol] Alanine aminotransferase [Enzymatic activity/volume] in Serum or Plasma [facility] Albumin [Mass/volume] in Ser um or Plasma by Bromocresol green (BCG) dye binding methoOrdered By: Sarah Dodd on 07-14-2024 Albumin BCG dye [Mass/Vol] 4.1 g/dL 3.5-5.7 [facility] Albumin BCG dye [Mass/Vol] Albumin [Mass/volume] in Serum or Plasma by Bromocresol green (BCG) dye binding metho 3.5-5.7 [facility] Alkaline phosphatase [Enzyma tic activity/volume] in Serum or PlasmaOrdered By: Sarah Dodd on 07-14-2024 ALP [Catalytic activity/Vol] 48 U/L Normal 34-104 [facility] Comment on above: Performed By: #### E WANDA ESTRADA, CMP #### [facility] [address] [place] [address] ALP [Catalytic activity/Vol] Alkaline phosphatase [Enzymatic activity/volume] in Serum or Plasma 34-104 [facility] Appearance of UrineOrdered B y: Sarah Dodd on 07-14-2024 Appearance (U) Urine appearance Clear [facility] Aspartate aminotransferase [ Enzymatic activity/volume] in Serum or PlasmaOrdered By: Sarah Dodd on 07-14-2024 AST [Catalytic activity/Vol] 14 U/L Normal 13-39 [facility] Comment on above: Performed By: #### E NATALIE CBC, CMP #### [address] AST [Catalytic activity/Vol] Aspartate aminotransferase [Enzymatic activity/volume] in Serum or Plasma 13-39 [facility] Automated basophil %Ordered By: Sarah Dodd on 07-14-2024 Basophils/100 WBC (Bld) 0.4 % Normal . [facility] Comment on above: Performed By: #### E NATALIE, CBC, CMP #### [address] Automated basophil countOrde red By: Sarah Dodd on 07-14-2024 Basophils (Bld) [#/Vol] 0.0 10*3/uL Normal 0.0-0.2 [facility] Comment on above: Result Comment: PERF ORMED BY: [place] [address] PATHOLOGIST CAMPUS RECRUITING COORDINATOR CLAU ZAVALA M.D. Performed By: #### E NATALIE, CBC, CMP #### [address] Automated blood monocyte cou ntOrdered By: Sarah Dodd on 07-14-2024 Monocytes (Bld) [#/Vol] 0.5 10*3/uL Normal 0.0-0.8 [facility] Comment on above: Performed By: #### E NATALIE, CBC, CMP #### [address] Automated eosinophil %Ordere d By: Sarah Dodd on 07-14-2024 Eosinophils/100 WBC (Bld) 0.6 % Normal . [facility] Comment on above: Performed By: #### E NATALIE, CBC, CMP #### [address] Automated eosinophil countOr dered By: Sarah Dodd on 07-14-2024 Eosinophils (Bld) [#/Vol] 0.0 10*3/uL Normal 0.0-0.45 [facility] Comment on above: Performed By: #### E NATALIE, CBC, CMP #### [address] [place] [address] [place] Automated monocyte %Ordered By: Sarah Dodd on 07-14-2024 Monocytes/100 WBC (Bld) 12.3 % Normal . [facility] Comment on above: Performed By: #### E NATALIE, CBC, CMP #### [facility] [address] [place] [address] Automated neutrophil %Ordere d By: Sarah Dodd on 07-14-2024 Neutrophils/100 WBC (Bld) 63.5 % Normal . [facility] Comment on above: Performed By: #### E NATALIE, CBC, CMP #### [facility] [address] [place] [address] Bacteria [Presence] in Urine by AutomatedOrdered By: Sarah Dodd on 07-14-2024 Bacteria Auto Ql (U) Rare [HPF] None Seen [facility] Bacteria Auto Ql (U) Bacteria [Presence] in Urine by Automated None Seen [facility] Basic Metabolic Panelon 06-18 Creatinine Clr Calc Pharmacy 107.14 Normal [facility] Comment on above: Performed By: #### E NATALIE, CBC, CMP #### [address] GFR/1.73 sq M.predicted MDRD (S/P/Bld) [Vol rate/Area] mL/min/{1.73_m2} Normal [facility] Comment on above: Performed By: #### E NATALIE, CBC, CMP #### [facility] [address] [place] [address] Basophils Auto (Bld) [#/Vol] Ordered By: Sarah Dodd on 07-14-2024 Basophils (Bld) [#/Vol] Automated basophil count 0.0-0.2 [facility] Basophils/100 WBC Auto (Bld) Ordered By: Sarah Dodd on 07-14-2024 Basophils/100 WBC (Bld) Automated basophil % . [facility] Bilirubin Test strip Ql (U)O rdered By: Sarah Dodd on 07-14-2024 Bilirubin Ql (U) Negative Negative [facility] Bilirubin Ql (U) Bilirubin.total [Pre sence] in Urine by Test strip Negative [facility] Bilirubin.direct [Mass/volum e] in Serum or PlasmaOrdered By: Sarah Dodd on 07-14-2024 Bilirubin.direct [Mass/Vol] 0.10 mg/dL 0.03-0.18 [facility] Bilirubin.direct [Mass/Vol] Bilirubin.direct [Mass/volume] in Serum or Plasma 0.03-0.18 [facility] Bilirubin.total [Mass/volume ] in Serum or PlasmaOrdered By: Sarah Dodd on 07-14-2024 Bilirubin [Mass/Vol] 0.4 mg/dL Normal 0.3-1.0 [facility] Comment on above: Performed By: #### E NATALIE, CBC, CMP #### [address] Bilirubin [Mass/Vol] Bilirubin.total [Mass/volume] in Serum or Plasma 0.3-1.0 [facility] COVID CepheidOrdered By: Macarena Dodd on 07-14-2024 SARS-CoV-2 (COVID-19) Ab IA Ql Negative Negative [facility] Comment on above: This is a duplicate Cepheid Xpert Xpress CoV-2/Flu/RSV Plus RNA by RT-PCR result to be used for statistical tracking purpose only. SARS-CoV-2 (COVID-19) RNA HIRAM+probe Ql (Unsp spec) [facility] COVID Cepheid NegativeOrdere d By: Sarah Dodd on 07-14-2024 SARS-CoV-2 (COVID-19) Ab IA Ql COVID Cepheid Negative [facility] Comment on above: This is a duplicate [...] or Cepheid Disclaimer revoked sooner. PERFORMED BY: [place] [address] PATHOLOGIST CAMPUS RECRUITING COORDINATOR CLAU ZAVALA M.D. Normal [facility] Comment on above: Performed By: #### C OVID19 FLU RSV, CEPHEID NEG #### [facility] [address] [place] [id number] [facility] CT abdomen pelvis w compa CT abdomen pelvis w [facility] [place] [address] [place] [address] CT Scan Report Signed Patient: Leandra Fonseca MR#: [id number] : [id number] Acct:[id number] Age/Sex: 34 / F ADM Date: 07/14/24 Loc: ER Room: Type: [facility] ER Attending Dr: Copies to: DO [...] Mancera Jr., D.O.07/14/2024 2:43 PM Dictation Location: [place] [address] Transcribed By: CHRISTINE 07/14/24 1443 Dictated By: Leroy Mancera Jr, DO 07/14/24 1438 Signed By: 07/14/24 1443 Normal [facility] Calcium [Mass/volume] in Ser um or PlasmaOrdered By: Sarah Dodd on 07-14-2024 Calcium [Mass/Vol] 8.9 mg/dL Normal 8.6-10.3 [facility] Comment on above: Performed By: #### E NATALIE, CBC, CMP #### [facility] [address] [id number] [facility] Calcium [Mass/Vol] Calcium [Mass/volume ] in Serum or Plasma 8.6-10.3 [facility] Carbon dioxide, total [Moles /volume] in Serum or PlasmaOrdered By: Sarah Dodd on 07-14-2024 CO2 [Moles/Vol] 25.2 mmol/L Normal 21.0-31.0 [facility] Comment on above: Performed By: #### E NATALIE, CBC, CMP #### [facility] [address] [place], [place] [id number] [place] CO2 [Moles/Vol] Carbon dioxide, tota l [Moles/volume] in Serum or Plasma 21.0-31.0 [facility] Cepheid COVID PCR Negativeon 07-14-2024 SARS-CoV-2 (COVID-19) RNA HIRAM+probe Ql (Unsp spec) Negative Normal Negative [facility] Comment on above: Result Comment: This is a duplicate Cepheid Xpert Xpress CoV-2/Flu/RSV Plus RNA by RT-PCR result to be used for statistical tracking purpose only. PERFORMED BY: [place] [id number] PATHOLOGIST CAMPUS RECRUITING COORDINATOR CLAU ZAVALA M.D. Performed By: #### C OVID19 FLU RSV, CEPHEID NEG #### [place] [id number] [place] Chloride [Moles/volume] in S salas or PlasmaOrdered By: Sarah Dodd on 07-14-2024 Chloride [Moles/Vol] 105 mmol/L Normal 98-107 [facility] Comment on above: Performed By: #### E NATALIE, CBC, CMP #### [address] Chloride [Moles/Vol] Chloride [Moles/vol ume] in Serum or Plasma 98-107 [facility] Color Auto (U)Ordered By: Godfrey Dodd on 07-14-2024 Color (U) Color of Urine by Auto Yellow [facility] Color of Urine by AutoOrdere d By: Sarah Dodd on 07-14-2024 Color (U) Yellow Normal Yellow [facility] Comment on above: Order Comment: Name Collection Type:: Clean-Voided Midstream Performed By: #### E NATALIE, CBC, CMP #### [address] Complete Blood Count Auto Di ffon 07-14-2024 Mean Corpuscular HGB Conc 32.2 g/dL Normal 32.0-35.0 [facility] Comment on above: Performed By: #### E NATALIE, CBC, CMP #### [address] Monocytes/100 WBC (Bld) 20.43 % High 0.00-20.00 [facility] Comment on above: Result Comment: For adults in ED, MDW > 20.0 may be associated with a higher risk of sepsis during the first 12 hrs of hospital admission Performed By: #### E NATALIE, CBC, CMP #### [address] NRBC% 0.1 /100{WBC} Normal 0-0.5 [facility] Comment on above: Performed By: #### E NATALIE, CBC, CMP #### [address] Creatinine [Mass/volume] in Serum or PlasmaOrdered By: Sarah Dodd on 07-14-2024 Creatinine [Mass/Vol] 0.71 mg/dL Normal 0.60-1.20 [facility] Comment on above: Performed By: #### E NATALIE, CBC, CMP #### [place] [address] [place] Creatinine [Mass/Vol] Creatinine [Mass/v olume] in Serum or Plasma 0.60-1.20 [facility] Dipstick and Microscopicon 1 0 Bacteria,Urine Rare Normal None Seen [facility] Comment on above: Order Comment: Name Collection Type:: Clean-Voided Midstream Performed By: #### E NATALIE, CBC, CMP #### [facility] [address] Bilirubin,Urine Negative Normal Negative [facility] Comment on above: Order Comment: Name Collection Type:: Clean-Voided Midstream Performed By: #### E NTAALIE, CBC, CMP #### [address] Glucose Ql (U) Normal Normal Normal [facility] Comment on above: Order Comment: Name Collection Type:: Clean-Voided Midstream Performed By: #### E NATALIE, CBC, CMP #### [address] Hyaline Casts,Urine None Normal 0-8 [facility] Comment on above: Order Comment: Name Collection Type:: Clean-Voided Midstream Performed By: #### E NATALIE, CBC, CMP #### [place] [address] [place] Mucus,Urine 2+ Critically abnormal [facility] Comment on above: Order Comment: Name Collection Type:: Clean-Voided Midstream Performed By: #### E NATALIE, CBC, CMP #### [place] [address] [place] Nitrite,Urine Negative Normal Negative [facility] Comment on above: Order Comment: Name Collection Type:: Clean-Voided Midstream Performed By: #### E NATALIE, CBC, CMP #### [facility] [address] [place] [address] [place] Occult Blood,Urine 1+ High Negative [facility] Comment on above: Order Comment: Name Collection Type:: Clean-Voided Midstream Performed By: #### E NATALIE, CBC, CMP #### [facility] [address] [place] [address] [place] RBC,Urine 20-49 High 0-4 [facility] Comment on above: Order Comment: Name Collection Type:: Clean-Voided Midstream Performed By: #### E NATALIE, CBC, CMP #### [address] Specificy [place],Urine 1.030 Normal 1.001-1.03 0 [facility] Comment on above: Order Comment: Name Collection Type:: Clean-Voided Midstream Performed By: #### E NATALIE, CBC, CMP #### [address] Squamous Epithelial Cell,Urine 5-9 High 0-2 [facility] Comment on above: Order Comment: Name Collection Type:: Clean-Voided Midstream Performed By: #### E NATALIE, CBC, CMP #### [address] Urobilinogen,Urine 3 mg/dL High Normal [facility] Comment on above: Order Comment: Name Collection Type:: Clean-Voided Midstream Performed By: #### E NATALIE, CBC, CMP #### [facility] [address] [place] [address] WBC,Urine 5-9 High 0-4 [facility] Comment on above: Order Comment: Name Collection Type:: Clean-Voided Midstream Performed By: #### E NATALIE, CBC, CMP #### [address] ECG 12 lead ECGon 07-14-2024 ECG 12 lead [place] [address] Electrocardiograph Report Signed Patient: Leandra Fonseca MR#: [id number] : 1990 Acct:[id number] Age/Sex: 34 / F ADM Date: 07/14/24 Loc: ER Room: Type: [facility] ER Attending Dr: Ordering Provider: Sarah Dodd, DO Date of Service: 07/14/24 ECG/ECG 12 [...] sinus rhythm Confirmed by Glenroy Weldon DO ([id number]) on 07/14/2024 8:07:49 PM Referred By: Electronically Signed By: Glenroy Weldon DO Transcribed By: MUS Signed By Glenroy Weldon DO 2006 Normal [facility] Eosinophils Auto (Bld) [#/Vo l]Ordered By: Sarah Dodd on 07-14-2024 Eosinophils (Bld) [#/Vol] Automated eosinophil count 0.0-0.45 [facility] Eosinophils/100 WBC Auto (Bl d)Ordered By: Sarah Dodd on 07-14-2024 Eosinophils/100 WBC (Bld) Automated eosinophil % . [facility] Epithelial cells.squamous [# /area] in Urine sediment by Automated countOrdered By: Sarah Dodd on 07-14-2024 Epithelial cells.squamous Auto (Urine sed) [#/Area] 5-9 [HPF] High 0-2 [facility] Epithelial cells.squamous Auto (Urine sed) [#/Area] Epithelial cells.squamous [#/area] in Urine sediment by Automated count High 0-2 [facility] Erythrocyte distribution wid th Auto (RBC) [Ratio]Ordered By: Sarah Dodd on 07-14-2024 Erythrocyte distribution width (RBC) [Ratio] Erythrocyte distribution width [Ratio] by Automated count 11.9-15.3 [facility] Erythrocyte distribution wid th [Ratio] by Automated countOrdered By: Sarah Dodd on 07-14-2024 Erythrocyte distribution width (RBC) [Ratio] 13.7 % Normal 11.9-15.3 [facility] Comment on above: Performed By: #### E NATALIE, CBC, CMP #### [facility] [address] [place] [address] Erythrocytes [#/area] in Uri ne sediment by Automated countOrdered By: Sarah Dodd on 07-14-2024 RBC Auto (Urine sed) [#/Area] 20-49 [HPF] High 0-4 [facility] RBC Auto (Urine sed) [#/Area] Erythrocytes [#/area] in Urine sediment by Automated count High 0-4 [facility] Erythrocytes [#/volume] in B lood by Automated countOrdered By: Sarah Dodd on 07-14-2024 RBC (Bld) [#/Vol] 4.57 10*6/uL Normal 3.60-5.00 [facility] Comment on above: Performed By: #### E NATALIE, CBC, CMP #### [facility] [address] Globulin Calc (S) [Mass/Vol] Ordered By: Sarah Dodd on 07-14-2024 Globulin (S) [Mass/Vol] Serum globulin measurement by calculation (mass/volume) [facility] Glucose [Mass/volume] in Ser um or PlasmaOrdered By: Sarah Dodd on 07-14-2024 Glucose [Mass/Vol] 88 mg/dL Normal 70-100 [facility] Comment on above: ADA recommended refe rence rangeRandom Glucose Reference Range is dependent on time and content of last meal. Glucose of more than 200 mg/dL in a nonstressed, ambulatory subject supports the diagnosis of Diabetes Mellitus. Result Comment: [place] Glucose Reference Range is dependent on time and content of last meal. Glucose of more than 200 mg/dL in a nonstressed, ambulatory subject supports the diagnosis of Diabetes Mellitus. ADA recommended reference range Performed By: #### E NATALIE, CBC, CMP #### [facility] [address] [place] [address] Glucose [Mass/Vol] Glucose [Mass/volume ] in Serum or Plasma 70-100 [facility] Comment on above: ADA recommended refe rence rangeRandom Glucose Reference Range is dependent on time and content of last meal. Glucose of more than 200 mg/dL in a nonstressed, ambulatory subject supports the diagnosis of Diabetes Mellitus. Glucose [Mass/volume] in Uri ne by Test stripOrdered By: Sarah Dodd on 07-14-2024 Glucose Test strip (U) [Mass/Vol] Normal mg/dL Normal [facility] Glucose Test strip (U) [Mass/Vol] Glucose [Mass/volume] in Urine by Test strip Normal [facility] HCG ( test) IA.rapi d Ql (U)Ordered By: PROVIDER CHESTER on 07-14-2024 HCG ( test) Ql (U) Negative [facility] HCG ( test) Ql (U) Urine human chorionic gonadotropin (hCG) detection by immunoassay [facility] HCG,Urineon 07-14-2024 Beta HCG ( test) Ql (U) Negative Normal [facility] Comment on above: Order Comment: Name Collection Type:: Clean-Voided Midstream Result Comment: PERF ORMED BY: [place] [address] PATHOLOGIST CAMPUS RECRUITING COORDINATOR CLAU ZAVALA M.D. Performed By: #### E NATALIE, CBC, CMP #### [facility] [address] [place] [address] Hematocrit Auto (Bld) [Volum e fraction]Ordered By: Sarah Dodd on 07-14-2024 Hematocrit (Bld) [Volume fraction] Hematocrit [Volume Fraction] of Blood by Automated count Low 34.0-46.4 [facility] Hematocrit [Volume Fraction] of Blood by Automated countOrdered By: Sarah Dodd on 07-14-2024 Hematocrit (Bld) [Volume fraction] 33.4 % Low 34.0-46.4 [facility] Comment on above: Performed By: #### E NATALIE, CBC, CMP #### [facility] [address] [place] [address] Hemoglobin Test strip Ql (U) Ordered By: Sarah Dodd on 07-14-2024 Hemoglobin Ql (U) 1+ High Negative [facility] Hemoglobin Ql (U) Hemoglobin [Presence ] in Urine by Test strip High Negative [facility] Hemoglobin [Mass/volume] in BloodOrdered By: Sarah Dodd on 07-14-2024 Hemoglobin (Bld) [Mass/Vol] 10.8 g/dL Low 11.8-15.4 [facility] Comment on above: Performed By: #### E NATALIE, CBC, CMP #### [facility] [address] [place] [address] [place] Hemoglobin (Bld) [Mass/Vol] Hemoglobin [Mass/volume] in Blood Low 11.8-15.4 [facility] Hepatic Panelon 07-14-2024 Albumin [Mass/Vol] 4.1 g/dL Normal 3.5-5.7 [facility] Comment on above: Performed By: #### E NATALIE, CBC, CMP #### [facility] [address] [place] [address] [place] Bilirubin,Indirect 0.3 mg/dL Normal [facility] Comment on above: Performed By: #### E NATALIE, CBC, CMP #### [facility] [address] Bilirubin.indirect [Mass/Vol] 0.10 mg/dL Normal 0.03-0.18 [facility] Comment on above: Performed By: #### E NATALIE, CBC, CMP #### [facility] [address] [place] [address] [place] Hyaline casts [#/area] in Ur ine sediment by Automated countOrdered By: Sraah Dodd on 07-14-2024 Hyaline casts Auto (Urine sed) [#/Area] None [LPF] 0-8 [facility] Hyaline casts Auto (Urine sed) [#/Area] Hyaline casts [#/area] in Urine sediment by Automated count 0-8 [facility] Ketones Test strip Ql (U)Ord ered By: Sarah Dodd on 07-14-2024 Ketones Ql (U) Ketones [Presence] i n Urine by Test strip High Negative [facility] Ketones [Presence] in Urine by Test stripOrdered By: Sarah Dodd on 07-14-2024 Ketones Ql (U) 2+ High Negative [facility] Comment on above: Order Comment: Name Collection Type:: Clean-Voided Midstream Performed By: #### E NATALIE, CBC, CMP #### [facility] [address] [id number] [place] Leukocyte esterase [Presence ] in Urine by Test stripOrdered By: Sarah Dodd on 07-14-2024 Leukocyte esterase Test strip Ql (U) Negative Normal Negative [facility] Comment on above: Order Comment: Name Collection Type:: Clean-Voided Midstream Performed By: #### E NATALIE, CBC, CMP #### [facility] [address] Leukocyte esterase Test strip Ql (U) Leukocyte esterase [Presence] in Urine by Test strip Negative [facility] Leukocytes [#/area] in Urine sediment by Automated countOrdered By: Sarah Dodd on 07-14-2024 WBC Auto (Urine sed) [#/Area] 5-9 [HPF] High 0-4 [facility] WBC Auto (Urine sed) [#/Area] Leukocytes [#/area] in Urine sediment by Automated count High 0-4 [facility] Leukocytes [#/volume] correc delmer for nucleated erythrocytes in Blood by Automated counOrdered By: Sarah Dodd on 07-14-2024 WBC corrected for nucl RBC Auto (Bld) [#/Vol] 4.3 10*3/uL 3.8-11.6 [facility] WBC corrected for nucl RBC Auto (Bld) [#/Vol] Leukocytes [#/volume] corrected for nucleated erythrocytes in Blood by Automated coun 3.8-11.6 [facility] Leukocytes [#/volume] in Blo od by Automated countOrdered By: Sarah Dodd on 07-14-2024 WBC (Bld) [#/Vol] 4.3 10*3/uL Normal 3.8-11.6 [facility] Comment on above: Performed By: #### E NATALIE, CBC, CMP #### [facility] [address] [place] [address] [place] Lipase [Enzymatic activity/v olume] in Serum or PlasmaOrdered By: Sarah Dodd on 07-14-2024 Lipase [Catalytic activity/Vol] 45.0 U/L Normal 11.0-82.0 [facility] Comment on above: Result Comment: PERF ORMED BY: [place] [address] PATHOLOGIST CAMPUS RECRUITING COORDINATOR CLAU ZAVALA M.D. Performed By: #### E NATALIE, CBC, CMP #### [address] Lipase [Catalytic activity/Vol] Lipase [Enzymatic activity/volume] in Serum or Plasma 11.0-82.0 [facility] Lymphocytes Auto (Bld) [#/Vo l]Ordered By: Sarah Dodd on 07-14-2024 Lymphocytes (Bld) [#/Vol] Lymphocytes [#/volume] in Blood by Automated count 1.00-4.8 [facility] Lymphocytes [#/volume] in Bl ood by Automated countOrdered By: Sarah Dodd on 07-14-2024 Lymphocytes (Bld) [#/Vol] 1.0 10*3/uL Normal 1.00-4.8 [facility] Comment on above: Performed By: #### E NATALIE, CBC, CMP #### [facility] [address] [place] [address] Lymphocytes/100 WBC Auto (Bl d)Ordered By: Sarah Dodd on 07-14-2024 Lymphocytes/100 WBC (Bld) Lymphocytes/100 leukocytes in Blood by Automated count . [facility] Lymphocytes/100 leukocytes i n Blood by Automated countOrdered By: Sarah Dodd on 07-14-2024 Lymphocytes/100 WBC (Bld) 23.2 % Normal . [facility] Comment on above: Performed By: #### E NATALIE, CBC, CMP #### [facility] [address] [place] [address] MCH Auto (RBC) [Entitic mass ]Ordered By: Sarah Dodd on 07-14-2024 MCH (RBC) [Entitic mass] MCH [Entitic mass] by Automated count Low 24.7-34.3 [facility] MCH [Entitic mass] by Automa delmer countOrdered By: Sarah Dodd on 07-14-2024 MCH (RBC) [Entitic mass] 23.5 pg Low 24.7-34.3 [facility] Comment on above: Performed By: #### E NATALIE, CBC, CMP #### [facility] [address] [place] [address] MCHC Auto (RBC) [Mass/Vol]Or dered By: Sarah Dodd on 07-14-2024 MCHC (RBC) [Mass/Vol] 32.2 g/dL 32.0-35.0 [facility] MCHC (RBC) [Mass/Vol] MCHC [Mass/volume] by Automated count 32.0-35.0 [facility] MCV Auto (RBC) [Entitic vol] Ordered By: Sarah Dodd on 07-14-2024 MCV (RBC) [Entitic vol] MCV [Entitic volume] by Automated count Low 80-100 [facility] MCV [Entitic volume] by Auto mated countOrdered By: Sarah Dodd on 07-14-2024 MCV (RBC) [Entitic vol] 73.1 fL Low 80-100 [facility] Comment on above: Performed By: #### E NATALIE, CBC, CMP #### [address] Monocyte distribution width [Entitic volume] in Blood by AutomatedOrdered By: Sarah Dodd on 07-14-2024 Monocyte distribution width Auto (Bld) [Entitic vol] 20.43 % High 0.00-20.00 [facility] Comment on above: For adults in ED, MD W > 20.0 may be associated with a higher risk of sepsis during the first 12 hrs of hospital admission Monocyte distribution width Auto (Bld) [Entitic vol] Monocyte distribution width [Entitic volume] in Blood by Automated High 0.00-20.00 [facility] Comment on above: For adults in ED, MD W > 20.0 may be associated with a higher risk of sepsis during the first 12 hrs of hospital admission Monocytes Auto (Bld) [#/Vol] Ordered By: Sarah Dodd on 07-14-2024 Monocytes (Bld) [#/Vol] Automated blood monocyte count 0.0-0.8 [facility] Monocytes/100 WBC Auto (Bld) Ordered By: Sarah Dodd on 07-14-2024 Monocytes/100 WBC (Bld) Automated monocyte % . [facility] Mucus [Presence] in Urine by AutomatedOrdered By: Sarah Dodd on 07-14-2024 Mucus Auto Ql (U) 2+ [LPF] Abnormal [facility] Mucus Auto Ql (U) Mucus [Presence] in Urine by Automated Abnormal [facility] Neutrophils Auto (Bld) [#/Vo l]Ordered By: Sarah Dodd on 07-14-2024 Neutrophils (Bld) [#/Vol] Neutrophils [#/volume] in Blood by Automated count 1.8-7.7 [facility] Neutrophils [#/volume] in Bl ood by Automated countOrdered By: Sarah Dodd on 07-14-2024 Neutrophils (Bld) [#/Vol] 2.7 10*3/uL Normal 1.8-7.7 [facility] Comment on above: Performed By: #### E NATALIE, CBC, CMP #### [facility] [address] Neutrophils/100 WBC Auto (Bl d)Ordered By: Sarah Dodd on 07-14-2024 Neutrophils/100 WBC (Bld) Automated neutrophil % . [facility] Nitrite Test strip Ql (U)Ord ered By: Sarah Dodd on 07-14-2024 Nitrite Ql (U) Negative Negative [facility] Nitrite Ql (U) Nitrite [Presence] i n Urine by Test strip Negative [facility] No Panel InformationOrdered By: Sarah Dodd on 07-14-2024 Estimated GFR (CKD-EPI) > 60.0 mL/Min [facility] Creatinine Clearance (Chem 107.14 [facility] Nucleated erythrocytes [Pres ence] in Blood by Automated countOrdered By: Sarah Dodd on 07-14-2024 Nucleated RBC Auto Ql (Bld) 0.1 /100{WBC} 0-0.5 [facility] Nucleated RBC Auto Ql (Bld) Nucleated erythrocytes [Presence] in Blood by Automated count 0-0.5 [facility] Platelet mean volume Auto (B ld) [Entitic vol]Ordered By: Sarah Dodd on 07-14-2024 Platelet mean volume (Bld) [Entitic vol] Platelet mean volume [Entitic volume] in Blood by Automated count 6.3-10.7 [facility] Platelet mean volume [Entiti c volume] in Blood by Automated countOrdered By: Sarah Dodd on 07-14-2024 Platelet mean volume (Bld) [Entitic vol] 9.1 fL Normal 6.3-10.7 [facility] Comment on above: Performed By: #### E NATALIE CBC, CMP #### [facility] [address] [place] [address] [place] Platelets Auto (Bld) [#/Vol] Ordered By: Sarah Dodd on 07-14-2024 Platelets (Bld) [#/Vol] Platelets [#/volume] in Blood by Automated count 150-450 [facility] Platelets [#/volume] in Bloo d by Automated countOrdered By: Sarah Dodd on 07-14-2024 Platelets (Bld) [#/Vol] 168 10*3/uL Normal 150-450 [facility] Comment on above: Performed By: #### E NATALIE CBC, CMP #### [facility] [address] [place] [address] Potassium [Moles/volume] in Serum or PlasmaOrdered By: Sarah Dodd on 07-14-2024 Potassium [Moles/Vol] 3.3 mmol/L Low 3.5-5.1 [facility] Comment on above: Performed By: #### E NATALIE CBC, CMP #### [facility] [address] [place] [address] [place] Potassium [Moles/Vol] Potassium [Moles/v olume] in Serum or Plasma Low 3.5-5.1 [facility] Protein Test strip (U) [Mass /Vol]Ordered By: Sarah Dodd on 07-14-2024 Protein (U) [Mass/Vol] Protein [Mass/vol ume] in Urine by Test strip High Negative [facility] Protein [Mass/volume] in Ser um or PlasmaOrdered By: Sarah Dodd on 07-14-2024 Protein [Mass/Vol] 7.2 g/dL Normal 6.4-8.9 [facility] Comment on above: Performed By: #### E NATALIE CBC, CMP #### [facility] [address] [place] [address] [place] Protein [Mass/Vol] Protein [Mass/volume ] in Serum or Plasma 6.4-8.9 [facility] Protein [Mass/volume] in Uri ne by Test stripOrdered By: Sarah Dodd on 07-14-2024 Protein (U) [Mass/Vol] 20 mg/dL High Negative [facility] Comment on above: Order Comment: Name Collection Type:: Clean-Voided Midstream Performed By: #### E NATALIE CBC, CMP #### [facility] [address] [place] [address] RBC Auto (Bld) [#/Vol]Ordere d By: Sarah Dodd on 07-14-2024 RBC (Bld) [#/Vol] Erythrocytes [#/volu me] in Blood by Automated count 3.60-5.00 [facility] Respiratory specimen influen za A virus, influenza B virus, respiratory syncytical virOrdered By: Sarah Dodd on 07-14-2024 SARS-CoV-2 (COVID-19) RNA HIRAM+probe Ql (Unsp spec) Respiratory specimen influenza A virus, influenza B virus, respiratory syncytical vir [facility] Serum globulin measurement b y calculation (mass/volume)Ordered By: Sarah Dodd on 07-14-2024 Globulin (S) [Mass/Vol] 3.1 g/dL Normal [facility] Comment on above: Performed By: #### E NATALIE CBC, CMP #### [address] Serum or plasma albumin/glob ulin mass ratioOrdered By: Sarah Dodd on 07-14-2024 Albumin/Globulin [Mass ratio] 1.3 {ratio} Normal [facility] Comment on above: Performed By: #### E NATALIE CBC, CMP #### [address] Albumin/Globulin [Mass ratio] Serum or plasma albumin/globulin mass ratio [facility] Serum or plasma anion gap de terminationOrdered By: Sarah Dodd on 07-14-2024 Anion gap [Moles/Vol] 11.1 mmol/L Normal 6.0-15.0 [facility] Comment on above: Performed By: #### E NATALIE CBC, CMP #### [address] Anion gap [Moles/Vol] Serum or plasma an ion gap determination 6.0-15.0 [facility] Serum or plasma non-glucuron idated bilirubin measurement (mass/volume)Ordered By: Sarah Dodd on 07-14-2024 Bilirubin.indirect [Mass/Vol] 0.3 mg/dL [facility] Bilirubin.indirect [Mass/Vol] Serum or plasma non-glucuronidated bilirubin measurement (mass/volume) [facility] Sodium [Moles/volume] in Ser um or PlasmaOrdered By: Sarah Dodd on 07-14-2024 Sodium [Moles/Vol] 138 mmol/L Normal 136-145 [facility] Comment on above: Performed By: #### E NATALIE CBC, CMP #### [address] Sodium [Moles/Vol] Sodium [Moles/volume ] in Serum or Plasma 136-145 [facility] Specific gravity Test strip (U) [Rel density]Ordered By: Sarah Dodd on 07-14-2024 Specific gravity (U) [Rel density] 1.030 1.001-1.03 0 [facility] Specific gravity (U) [Rel density] Specific gravity of Urine by Test strip 1.001-1.03 0 [facility] Urea nitrogen [Mass/volume] in Serum or PlasmaOrdered By: Sarah Dodd on 07-14-2024 Urea nitrogen [Mass/Vol] 9 mg/dL Normal 04-10 [facility] Comment on above: Performed By: #### E NATALIE CBC, CMP #### [facility] [address] [place] [address] Urea nitrogen [Mass/Vol] Urea nitrogen [Mass/volume] in Serum or Plasma 04-10 [facility] Urine appearanceOrdered By: Sarah Dodd on 07-14-2024 Appearance (U) Clear Normal Clear [facility] Comment on above: Order Comment: Name Collection Type:: Clean-Voided Midstream Performed By: #### E NATALIE CBC, CMP #### [facility] [address] [place] [address] Urobilinogen Test strip (U) [Mass/Vol]Ordered By: Sarah Dodd on 07-14-2024 Urobilinogen (U) [Mass/Vol] 3 mg/dL [facility] Normal [facility] Urobilinogen (U) [Mass/Vol] Urobilinogen [Mass/volume] in Urine by Test strip [facility] WBC Auto (Bld) [#/Vol]Ordere d By: Sarah Dodd on 07-14-2024 WBC (Bld) [#/Vol] Leukocytes [#/volume ] in Blood by Automated count 3.8-11.6 [facility] pH Test strip (U)Ordered By: Sarah Dodd on 07-14-2024 pH (U) pH of Urine by Test strip 5.0-9.0 [facility] pH of Urine by Test stripOrd ered By: Sarah Dodd on 07-14-2024 pH (U) 6.0 [pH] Normal 5.0-9.0 [facility] Comment on above: Order Comment: Name Collection Type:: Clean-Voided Midstream Performed By: #### E NATALIE, CBC, CMP #### [address] CHLAMYDIA/GC BY PCRon 2023 CHLAMYDIA/GC BY [...] results are dependent on adequate specimen collection. [facility] Comment on above: Performed By: #### C #### [facility] ([id number]) [address] [place] [address], [address] [place] [address] VAGINITIS PANEL PCRon 2023 VAGINITIS PANEL PCR [...] clinical presentation to determine patient diagnosis. Normal [facility] Comment on above: Performed By: #### V PPCR #### [facility] ([id number]) [address] [place] [address] [address] [place] [address] Physician Referralon 024 Physician Referral [id number] Normal [facility] Alanine aminotransferase [En zymatic activity/volume] in Serum or PlasmaOrdered By: Kelly Hough on 09-27-2023 ALT [Catalytic activity/Vol] 9 U/L 7-52 [facility] Albumin [Mass/volume] in Ser um or Plasma by Bromocresol green (BCG) dye binding methoOrdered By: Kelly Hough on 09-27-2023 Albumin BCG dye [Mass/Vol] 4.3 g/dL 3.5-5.7 [facility] Alkaline phosphatase [Enzyma tic activity/volume] in Serum or PlasmaOrdered By: Kelly Hough on 09-27-2023 ALP [Catalytic activity/Vol] 41 U/L 34-104 [facility] Aspartate aminotransferase [ Enzymatic activity/volume] in Serum or PlasmaOrdered By: Kelly Hough on 09-27-2023 AST [Catalytic activity/Vol] 10 U/L 13-39 [facility] Basophils Auto (Bld) [#/Vol] Ordered By: Kelly Hough on 09-27-2023 Basophils (Bld) [#/Vol] 0.0 10*3/uL 0.0-0.2 [facility] Basophils/100 WBC Auto (Bld) Ordered By: Kelly Hough on 09-27-2023 Basophils/100 WBC (Bld) 0.3 % . [facility] Bilirubin.total [Mass/volume ] in Serum or PlasmaOrdered By: Kelly Hough on 09-27-2023 Bilirubin [Mass/Vol] 0.7 mg/dL 0.3-1.0 [facility] Calcium [Mass/volume] in Ser um or PlasmaOrdered By: Kelly Hough on 09-27-2023 Calcium [Mass/Vol] 9.0 mg/dL 8.6-10.3 [facility] Carbon dioxide, total [Moles /volume] in Serum or PlasmaOrdered By: Kelly Hough on 09-27-2023 CO2 [Moles/Vol] 29.3 mmol/L 21.0-31.0 [facility] Chloride [Moles/volume] in S salas or PlasmaOrdered By: Kelly Hough on 09-27-2023 Chloride [Moles/Vol] 107 mmol/L 98-107 [facility] Creatinine [Mass/volume] in Serum or PlasmaOrdered By: Kelly Hough on 09-27-2023 Creatinine [Mass/Vol] 0.72 mg/dL 0.60-1.20 [facility] Eosinophils Auto (Bld) [#/Vo l]Ordered By: Kelly Hough on 09-27-2023 Eosinophils (Bld) [#/Vol] 0.1 10*3/uL 0.0-0.45 [facility] Eosinophils/100 WBC Auto (Bl d)Ordered By: Kelly Hough on 09-27-2023 Eosinophils/100 WBC (Bld) 0.8 % . [facility] Erythrocyte distribution wid th Auto (RBC) [Ratio]Ordered By: Kelly Hough on 09-27-2023 Erythrocyte distribution width (RBC) [Ratio] 13.7 % 11.9-15.3 [facility] Ferritin [Mass/volume] in Se rum or PlasmaOrdered By: Kelly Hough on 09-27-2023 Ferritin [Mass/Vol] 171.3 ng/mL 11.0-306.8 [facility] Folate [Mass/volume] in Seru m or PlasmaOrdered By: Kelly Hough on 09-27-2023 Folate [Mass/Vol] 5.5 ng/mL >5.9 [facility] Comment on above: Folate reference ran ge: >5.9 ng/mlThe WHO technical consultation on folate and vitamin [id number] has determined that folate concentrations lessthan 4 ng/ml are considered deficient. Globulin Calc (S) [Mass/Vol] Ordered By: Kelly Hough on 09-27-2023 Globulin (S) [Mass/Vol] 2.5 g/dL [facility] Glucose [Mass/volume] in Ser um or PlasmaOrdered By: Kelly Hough on 09-27-2023 Glucose [Mass/Vol] 113 mg/dL 70-100 [facility] Comment on above: ADA recommended [...] p24 Ag IA Ql Non-Reactive Non Reactive [facility] Comment on above: HIV NegativeHIV-1/HI V-2 antibodies and HIV-1 p24 antigen were NOTdetected. There is no laboratory evidence of HIV infection.Performed at: [address] [id number] Director: Alan Macias PhD, Phone: [phone] Hematocrit Auto (Bld) [Volum e fraction]Ordered By: Kelly Hough on 09-27-2023 Hematocrit (Bld) [Volume fraction] 34.8 % 34.0-46.4 [facility] Hemoglobin [Mass/volume] in BloodOrdered By: Kelly Hough on 09-27-2023 Hemoglobin (Bld) [Mass/Vol] 11.0 g/dL 11.8-15.4 [facility] Iron [Mass/volume] in Serum or PlasmaOrdered By: Kelly Hough on 09-27-2023 Iron [Mass/Vol] 59 ug/dL 50-212 [facility] Iron binding capacity [Mass/ volume] in Serum or PlasmaOrdered By: Kelly Hough on 09-27-2023 Iron binding capacity [Mass/Vol] 231 ug/dL 255-450 [facility] Iron saturation [Mass Fracti on] in Serum or PlasmaOrdered By: Kelly Hough on 09-27-2023 Iron saturation [Mass fraction] 25.5 % 20-50 [facility] Leukocytes [#/volume] correc delmer for nucleated erythrocytes in Blood by Automated counOrdered By: Kelly Hough on 09-27-2023 WBC corrected for nucl RBC Auto (Bld) [#/Vol] 8.3 10*3/uL 3.8-11.6 [facility] Lymphocytes Auto (Bld) [#/Vo l]Ordered By: Kelly Hough on 09-27-2023 Lymphocytes (Bld) [#/Vol] 2.1 10*3/uL 1.00-4.8 [facility] Lymphocytes/100 WBC Auto (Bl d)Ordered By: Kelly Hough on 09-27-2023 Lymphocytes/100 WBC (Bld) 24.7 % . [facility] MCH Auto (RBC) [Entitic mass ]Ordered By: Kelly Hough on 09-27-2023 MCH (RBC) [Entitic mass] 23.5 pg 24.7-34.3 [facility] MCHC Auto (RBC) [Mass/Vol]Or dered By: Kelly Hough on 09-27-2023 MCHC (RBC) [Mass/Vol] 31.6 g/dL 32.0-35.0 [facility] MCV Auto (RBC) [Entitic vol] Ordered By: Kelly Hough on 09-27-2023 MCV (RBC) [Entitic vol] 74.4 fL 80-100 [facility] Monocytes Auto (Bld) [#/Vol] Ordered By: Kelly Hough on 09-27-2023 Monocytes (Bld) [#/Vol] 0.4 10*3/uL 0.0-0.8 [facility] Monocytes/100 WBC Auto (Bld) Ordered By: Kelly Hough on 09-27-2023 Monocytes/100 WBC (Bld) 5.3 % . [facility] Neutrophils Auto (Bld) [#/Vo l]Ordered By: Kelly Hough on 09-27-2023 Neutrophils (Bld) [#/Vol] 5.8 10*3/uL 1.8-7.7 [facility] Neutrophils/100 WBC Auto (Bl d)Ordered By: Kelly Hough on 09-27-2023 Neutrophils/100 WBC (Bld) 68.9 % . [facility] No Panel InformationOrdered By: Kelly Hough on 09-27-2023 Estimated GFR (CKD-EPI) > 60.0 mL/Min [facility] Creatinine Clearance (Chem 105.57 [facility] Nucleated erythrocytes [Pres ence] in Blood by Automated countOrdered By: Kelly Hough on 09-27-2023 Nucleated RBC Auto Ql (Bld) 0.1 /100{WBC} 0-0.5 [facility] Platelet mean volume Auto (B ld) [Entitic vol]Ordered By: Kelly Hough on 09-27-2023 Platelet mean volume (Bld) [Entitic vol] 9.3 fL 6.3-10.7 [facility] Platelets Auto (Bld) [#/Vol] Ordered By: Kelly Hough on 09-27-2023 Platelets (Bld) [#/Vol] 197 10*3/uL 150-450 [facility] Potassium [Moles/volume] in Serum or PlasmaOrdered By: Kelly Hough on 09-27-2023 Potassium [Moles/Vol] 3.4 mmol/L 3.5-5.1 [facility] Protein [Mass/volume] in Ser um or PlasmaOrdered By: Kelly Hough on 09-27-2023 Protein [Mass/Vol] 6.8 g/dL 6.4-8.9 [facility] RBC Auto (Bld) [#/Vol]Ordere d By: Kelly Hough on 09-27-2023 RBC (Bld) [#/Vol] 4.68 10*6/uL 3.60-5.00 [facility] Reagin Ab [Presence] in Seru m by RPROrdered By: Yudelka Lopez on 09-27-2023 Reagin Ab RPR Ql (S) Non-Reactive Non Reactive [facility] Comment on above: Performed at: [address] [id number] Director: Alan Macias PhD, Phone: [phone] Serum or plasma albumin/glob ulin mass ratioOrdered By: Kelly Hough on 09-27-2023 Albumin/Globulin [Mass ratio] 1.7 {ratio} [facility] Serum or plasma anion gap de terminationOrdered By: Kelly Hough on 09-27-2023 Anion gap [Moles/Vol] 7.1 mmol/L 6.0-15.0 [facility] Sodium [Moles/volume] in Ser um or PlasmaOrdered By: Kelly Hough on 09-27-2023 Sodium [Moles/Vol] 140 mmol/L 136-145 [facility] Transferrin [Mass/volume] in Serum or PlasmaOrdered By: Kelly Hough on 09-27-2023 Transferrin [Mass/Vol] 165 mg/dL 203-362 [facility] Urea nitrogen [Mass/volume] in Serum or PlasmaOrdered By: Kelly Hough on 09-27-2023 Urea nitrogen [Mass/Vol] 10 mg/dL 7-25 [facility] Vitamin B12 ser/plasOrdered By: Kelly Hough on 09-27-2023 Cobalamin (Vitamin B12) [Mass/Vol] 446 pg/mL 180-914 [facility] Cobalamin (Vitamin B12) [Mass/Vol] Vitamin B12 ser/plas 180-914 [facility] WBC Auto (Bld) [#/Vol]Ordere d By: Kelly Hough on 09-27-2023 WBC (Bld) [#/Vol] 8.3 10*3/uL 3.8-11.6 [facility] Absolute reticulocyte countO rdered By: Kelly Hough on 06-27-2023 Reticulocytes (Bld) [#/Vol] 0.066 10*6/uL 0.024-0.08 4 [facility] Reticulocytes (Bld) [#/Vol] Absolute reticulocyte count 0.024-0.08 4 [facility] Basophil percentageOrdered B y: Kelly Ryannemesio on 06-27-2023 Basophil percentage Basophil percentage 80-158 [facility] Comment on above: This test was develo ped and its performance characteristicsdetermined by [employer] It has not been cleared orapproved by the Food and Drug Administration. Detection Limit = 5Performed at: [facility] [address] [id number] Director: Artemio Guillen MD, Phone: [phone] Haptoglobin [Mass/volume] in Serum or PlasmaOrdered By: Kelly Hough on 06-27-2023 Haptoglobin [Mass/Vol] 184 mg/dL 44-215 [facility] Haptoglobin [Mass/Vol] Haptoglobin [Mass /volume] in Serum or Plasma 44-215 [facility] Lactate dehydrogenase [Enzym atic activity/volume] in Serum or Plasma by Lactate to pyOrdered By: Kelly Hough on 06-27-2023 LDH Lactate to pyruvate reaction [Catalytic activity/Vol] 137 U/L 140-271 [facility] LDH Lactate to pyruvate reaction [Catalytic activity/Vol] Lactate dehydrogenase [Enzymatic activity/volume] in Serum or Plasma by Lactate to py Low 140-271 [facility] Monocyte %Ordered By: Kelly Siena amaya on 06-27-2023 Monocyte % 145 ug/dL 80-158 [facility] Comment on above: This test was develo ped and its performance characteristicsdetermined by [employer]. It has not been cleared orapproved by the Food and Drug Administration. Detection Limit = 5Performed at: [facility] [address] [id number] Director: Artemio Guillen MD, Phone: [phone] Reticulocytes/100 RBC Auto ( Bld)Ordered By: Kelly Hough on 06-27-2023 Reticulocytes/100 RBC (Bld) 1.4 % 0.5-1.5 [facility] Reticulocytes/100 RBC (Bld) Reticulocyte % auto 0.5-1.5 [facility] Alanine aminotransferase [En zymatic activity/volume] in Serum or PlasmaOrdered By: Kelly Hough on 06-14-2023 ALT [Catalytic activity/Vol] 13 U/L 7-52 [facility] Albumin [Mass/volume] in Ser um or Plasma by Bromocresol green (BCG) dye binding methoOrdered By: Kelly Hough on 06-14-2023 Albumin BCG dye [Mass/Vol] 3.8 g/dL 3.5-5.7 [facility] Alkaline phosphatase [Enzyma tic activity/volume] in Serum or PlasmaOrdered By: Kelly Hough on 06-14-2023 ALP [Catalytic activity/Vol] 33 U/L 34-104 [facility] Aspartate aminotransferase [ Enzymatic activity/volume] in Serum or PlasmaOrdered By: Kelly Hough on 06-14-2023 AST [Catalytic activity/Vol] 10 U/L 13-39 [facility] Basophils Auto (Bld) [#/Vol] Ordered By: Kelly Hough on 06-14-2023 Basophils (Bld) [#/Vol] 0.0 10*3/uL 0.0-0.2 [facility] Basophils/100 WBC Auto (Bld) Ordered By: Kelly Hough on 06-14-2023 Basophils/100 WBC (Bld) 0.4 % . [facility] Bilirubin.total [Mass/volume ] in Serum or PlasmaOrdered By: Kelly Hough on 06-14-2023 Bilirubin [Mass/Vol] 0.4 mg/dL 0.3-1.0 [facility] Calcium [Mass/volume] in Ser um or PlasmaOrdered By: Kelly Hough on 06-14-2023 Calcium [Mass/Vol] 8.8 mg/dL 8.6-10.3 [facility] Carbon dioxide, total [Moles /volume] in Serum or PlasmaOrdered By: Kelly Hough on 06-14-2023 CO2 [Moles/Vol] 28.5 mmol/L 21.0-31.0 [facility] Chloride [Moles/volume] in S salas or PlasmaOrdered By: Kelly Hough on 06-14-2023 Chloride [Moles/Vol] 104 mmol/L 98-107 [facility] Creatinine [Mass/volume] in Serum or PlasmaOrdered By: Kelly Hough on 06-14-2023 Creatinine [Mass/Vol] 0.82 mg/dL 0.60-1.20 [facility] Eosinophils Auto (Bld) [#/Vo l]Ordered By: Kelly Hough on 06-14-2023 Eosinophils (Bld) [#/Vol] 0.2 10*3/uL 0.0-0.45 [facility] Eosinophils/100 WBC Auto (Bl d)Ordered By: Kelly Hough on 06-14-2023 Eosinophils/100 WBC (Bld) 1.9 % . [facility] Erythrocyte distribution wid th Auto (RBC) [Ratio]Ordered By: Kelly Hough on 06-14-2023 Erythrocyte distribution width (RBC) [Ratio] 13.9 % 11.9-15.3 [facility] Ferritin [Mass/volume] in Se rum or PlasmaOrdered By: Kelly Hough on 06-14-2023 Ferritin [Mass/Vol] 146.0 ng/mL 11.0-306.8 [facility] Globulin Calc (S) [Mass/Vol] Ordered By: Kelly Hough on 06-14-2023 Globulin (S) [Mass/Vol] 2.0 g/dL [facility] Glucose [Mass/volume] in Ser um or PlasmaOrdered By: Kelly Hough on 06-14-2023 Glucose [Mass/Vol] 86 mg/dL 70-100 [facility] Comment on above: ADA recommended refe rence rangeRandom Glucose Reference Range is dependent on time and content of last meal. Glucose of more than 200 mg/dL in a nonstressed, ambulatory subject supports the diagnosis of Diabetes Mellitus. Hematocrit Auto (Bld) [Volum e fraction]Ordered By: Kelly Hough on 06-14-2023 Hematocrit (Bld) [Volume fraction] 32.4 % 34.0-46.4 [facility] Hemoglobin [Mass/volume] in BloodOrdered By: Kelly Hough on 06-14-2023 Hemoglobin (Bld) [Mass/Vol] 10.3 g/dL 11.8-15.4 [facility] Iron [Mass/volume] in Serum or PlasmaOrdered By: Kelly Hough on 06-14-2023 Iron [Mass/Vol] 62 ug/dL 50-212 [facility] Iron binding capacity [Mass/ volume] in Serum or PlasmaOrdered By: Kelly Hough on 06-14-2023 Iron binding capacity [Mass/Vol] 190 ug/dL 255-450 [facility] Iron saturation [Mass Fracti on] in Serum or PlasmaOrdered By: Kelly Hough on 06-14-2023 Iron saturation [Mass fraction] 32.6 % 20-50 [facility] Leukocytes [#/volume] correc delmer for nucleated erythrocytes in Blood by Automated counOrdered By: Kelly Hough on 06-14-2023 WBC corrected for nucl RBC Auto (Bld) [#/Vol] 8.4 10*3/uL 3.8-11.6 [facility] Lymphocytes Auto (Bld) [#/Vo l]Ordered By: Kelly Hough on 06-14-2023 Lymphocytes (Bld) [#/Vol] 2.6 10*3/uL 1.00-4.8 [facility] Lymphocytes/100 WBC Auto (Bl d)Ordered By: Kelly Hough on 06-14-2023 Lymphocytes/100 WBC (Bld) 31.3 % . [facility] MCH Auto (RBC) [Entitic mass ]Ordered By: Kelly Hough on 06-14-2023 MCH (RBC) [Entitic mass] 23.8 pg 24.7-34.3 [facility] MCHC Auto (RBC) [Mass/Vol]Or dered By: Kelly Hough on 06-14-2023 MCHC (RBC) [Mass/Vol] 31.7 g/dL 32.0-35.0 [facility] MCV Auto (RBC) [Entitic vol] Ordered By: Kelly Hough on 06-14-2023 MCV (RBC) [Entitic vol] 75.2 fL 80-100 [facility] Monocytes Auto (Bld) [#/Vol] Ordered By: Kelly Hough on 06-14-2023 Monocytes (Bld) [#/Vol] 0.5 10*3/uL 0.0-0.8 [facility] Monocytes/100 WBC Auto (Bld) Ordered By: Kelly Hough on 06-14-2023 Monocytes/100 WBC (Bld) 5.9 % . [facility] Neutrophils Auto (Bld) [#/Vo l]Ordered By: Kelly Hough on 06-14-2023 Neutrophils (Bld) [#/Vol] 5.1 10*3/uL 1.8-7.7 [facility] Neutrophils/100 WBC Auto (Bl d)Ordered By: Kelly Hough on 06-14-2023 Neutrophils/100 WBC (Bld) 60.5 % . [facility] No Panel InformationOrdered By: Kelly Hough on 06-14-2023 Estimated GFR (CKD-EPI) > 60.0 mL/Min [facility] Creatinine Clearance (Chem 93.10 [facility] Nucleated erythrocytes [Pres ence] in Blood by Automated countOrdered By: Kelly Hough on 06-14-2023 Nucleated RBC Auto Ql (Bld) 0.1 /100{WBC} 0-0.5 [facility] Platelet mean volume Auto (B ld) [Entitic vol]Ordered By: Kelly Hough on 06-14-2023 Platelet mean volume (Bld) [Entitic vol] 9.6 fL 6.3-10.7 [facility] Platelets Auto (Bld) [#/Vol] Ordered By: Kelly oHugh on 06-14-2023 Platelets (Bld) [#/Vol] 189 10*3/uL 150-450 [facility] Potassium [Moles/volume] in Serum or PlasmaOrdered By: Kelly Hough on 06-14-2023 Potassium [Moles/Vol] 4.1 mmol/L 3.5-5.1 [facility] Protein [Mass/volume] in Ser um or PlasmaOrdered By: Kelly Hough on 06-14-2023 Protein [Mass/Vol] 5.8 g/dL 6.4-8.9 [facility] RBC Auto (Bld) [#/Vol]Ordere d By: Kelly Hough on 06-14-2023 RBC (Bld) [#/Vol] 4.31 10*6/uL 3.60-5.00 [facility] Serum or plasma albumin/glob ulin mass ratioOrdered By: Kelly Hough on 06-14-2023 Albumin/Globulin [Mass ratio] 1.9 {ratio} [facility] Serum or plasma anion gap de terminationOrdered By: Kelly Hough on 06-14-2023 Anion gap [Moles/Vol] 10.6 mmol/L 6.0-15.0 [facility] Sodium [Moles/volume] in Ser um or PlasmaOrdered By: Kelly Hough on 06-14-2023 Sodium [Moles/Vol] 139 mmol/L 136-145 [facility] Thyrotropin [Units/volume] i n Serum or PlasmaOrdered By: Dayne Horton on 06-14-2023 TSH Qn 1.43 m[IU]/L 0.45-5.33 [facility] Thyroxine (T4) free [Mass/vo lume] in Serum or PlasmaOrdered By: Dayne Horton on 06-14-2023 Free T4 [Mass/Vol] 1.22 ng/dL 0.61-1.12 [facility] Transferrin [Mass/volume] in Serum or PlasmaOrdered By: Kelly Hough on 06-14-2023 Transferrin [Mass/Vol] 136 mg/dL 203-362 [facility] Triiodothyronine (T3) Free [ Mass/volume] in Serum or PlasmaOrdered By: Dayne Horton on 06-14-2023 Free T3 [Mass/Vol] 3.99 pg/mL 2.50-3.90 [facility] Urea nitrogen [Mass/volume] in Serum or PlasmaOrdered By: Kelly Hough on 06-14-2023 Urea nitrogen [Mass/Vol] 11 mg/dL 7-25 [facility] WBC Auto (Bld) [#/Vol]Ordere d By: Kelly Hough on 06-14-2023 WBC (Bld) [#/Vol] 8.4 10*3/uL 3.8-11.6 [facility] Provider Letteron 04-09-2023 Provider Letter (Inserted Image. Radha ble to display) April 09, 2023 LEANDRA FONSECA [address] [id number] : 1990 Dear Leandra , We have been trying to reach you with no success. It is important that you return our call regarding your referral from Kelvin Draper upon receiving this letter. Also, at the time of your call, please provide us with your current information. Thank you for your prompt attention to this matter. Sincerely, General Surgery [facility] [phone] [facility] Lab Reportson 04-04-2023 Lab Reports [id number]:127 [facility] Physician Referralon 023 Physician Referral [id number]:127 [facility] Albumin [Mass/volume] in Ser um or PlasmaOrdered By: Kelly Hough on 03-21-2023 Albumin [Mass/Vol] 3.6 g/dL 2.9-4.4 [facility] Albumin [Mass/Vol] Albumin [Mass/volume ] in Serum or Plasma 2.9-4.4 [facility] IgA [Mass/volume] in Serum o r PlasmaOrdered By: Kelly Hough on 03-21-2023 IgA [Mass/Vol] 158 mg/dL 87-352 [facility] IgA [Mass/Vol] IgA [Mass/volume] in Serum or Plasma 87-352 [facility] IgG [Mass/volume] in Serum o r PlasmaOrdered By: Kelly Hough on 03-21-2023 IgG [Mass/Vol] 1046 mg/dL 586-1602 [facility] IgG [Mass/Vol] IgG [Mass/volume] in Serum or Plasma 586-1602 [facility] IgM [Mass/volume] in Serum o r PlasmaOrdered By: Kelly Hough on 03-21-2023 IgM [Mass/Vol] 302 mg/dL 26-217 [facility] Comment on above: Performed at: [address] [id number] Director: Alan Macias PhD, Phone: [phone] IgM [Mass/Vol] IgM [Mass/volume] in Serum or Plasma High 26-217 [facility] Comment on above: Performed at: [employer] [place] [id number] Director: Alan Macias PhD, Phone: [phone] Immunoglobulin light chains. kappa.free [Mass/volume] in SerumOrdered By: Kelly Hough on 03-21-2023 Immunoglobulin light chains.kappa.free (S) [Mass/Vol] 19.2 mg/L 3.3-19.4 [facility] Immunoglobulin light chains.kappa.free (S) [Mass/Vol] Immunoglobulin light chains.kappa.free [Mass/volume] in Serum 3.3-19.4 [facility] Immunoglobulin light chains. kappa.free/Immunoglobulin light chains.lambda.free [MassOrdered By: Kelly Hough on 03-21-2023 Immunoglobulin light chains.kappa.free/Immu noglobulin light chains.lambda.free (S) [Mass ratio] 1.31 0.26-1.65 [facility] Comment on above: Performed at: [employer] [place] [id number] Director: Alan Macias PhD, Phone: [phone] Immunoglobulin light chains.kappa.free/Immu noglobulin light chains.lambda.free (S) [Mass ratio] Immunoglobulin light chains.kappa.free/Immunoglo bulin light chains.lambda.free [Mass 0.26-1.65 [facility] Comment on above: Performed at: [employer] [place] [address] [id number] Director: Alan Macias PhD, Phone: [phone] Immunoglobulin light chains. lambda.free [Mass/volume] in Serum or PlasmaOrdered By: Kelly Hough on 03-21-2023 Immunoglobulin light chains.lambda.free [Mass/Vol] 14.7 mg/L 5.7-26.3 [facility] Immunoglobulin light chains.lambda.free [Mass/Vol] Immunoglobulin light chains.lambda.free [Mass/volume] in Serum or Plasma 5.7-26.3 [facility] No Panel InformationOrdered By: Kelly Hough on 03-21-2023 Protein Electrophoresis M-Emanuel Not observed g/dL Not Observed [facility] Protein Electrophoresis Note See comment . [facility] Comment on above: Protein electrophore sis scan will follow via computer,mail, or dope edger delivery. Serum Immunofixation See comment . [facility] Comment on above: No monoclonality det ected. Slides for Pathologist Review Ordered path review [facility] Protein [Mass/volume] in Ser um or PlasmaOrdered By: Kelly Hough on 03-21-2023 Protein [Mass/Vol] 6.5 g/dL 6.0-8.5 [facility] Protein [Mass/Vol] Protein [Mass/volume ] in Serum or Plasma 6.0-8.5 [facility] Serum globulin measurement ( mass/volume)Ordered By: Kelly Hough on 03-21-2023 Globulin (S) [Mass/Vol] 2.9 g/dL 2.2-3.9 [facility] Globulin (S) [Mass/Vol] Serum globulin measurement (mass/volume) 2.2-3.9 [facility] Serum or plasma albumin/glob ulin mass ratioOrdered By: Kelly Hough on 03-21-2023 Albumin/Globulin [Mass ratio] 1.2 {ratio} 0.7-1.7 [facility] Albumin/Globulin [Mass ratio] Serum or plasma albumin/globulin mass ratio 0.7-1.7 [facility] Serum or plasma alpha 1 glob ulin measurement by electrophoresis (mass/volume)Ordered By: Kelly Hough on 03-21-2023 Alpha 1 globulin Elph [Mass/Vol] 0.3 g/dL 0.0-0.4 [facility] Alpha 1 globulin Elph [Mass/Vol] Serum or plasma alpha 1 globulin measurement by electrophoresis (mass/volume) 0.0-0.4 [facility] Serum or plasma alpha 2 glob ulin measurement by electrophoresis (mass/volume)Ordered By: Kelly Hough on 03-21-2023 Alpha 2 globulin Elph [Mass/Vol] 0.8 g/dL 0.4-1.0 [facility] Alpha 2 globulin Elph [Mass/Vol] Serum or plasma alpha 2 globulin measurement by electrophoresis (mass/volume) 0.4-1.0 [facility] Serum or plasma beta globuli n measurement by electrophoresis (mass/volume)Ordered By: Kelly France on 03-21-2023 Beta globulin Elph [Mass/Vol] 0.7 g/dL 0.7-1.3 [facility] Beta globulin Elph [Mass/Vol] Serum or plasma beta globulin measurement by electrophoresis (mass/volume) 0.7-1.3 [facility] Serum or plasma gamma globul in measurement by electrophoresis (mass/volume)Ordered By: Kelly Hough on 03-21-2023 Gamma globulin Elph [Mass/Vol] 1.1 g/dL 0.4-1.8 [facility] Gamma globulin Elph [Mass/Vol] Serum or plasma gamma globulin measurement by electrophoresis (mass/volume) 0.4-1.8 [facility] Alanine aminotransferase [En zymatic activity/volume] in Serum or PlasmaOrdered By: Jim Vega on 02-06-2023 ALT [Catalytic activity/Vol] 10 U/L 7-52 [facility] Albumin [Mass/volume] in Ser um or Plasma by Bromocresol green (BCG) dye binding methoOrdered By: Jim Vega on 02-06-2023 Albumin BCG dye [Mass/Vol] 4.2 g/dL 3.5-5.7 [facility] Alkaline phosphatase [Enzyma tic activity/volume] in Serum or PlasmaOrdered By: Jim Vega on 02-06-2023 ALP [Catalytic activity/Vol] 45 U/L 34-104 [facility] Aspartate aminotransferase [ Enzymatic activity/volume] in Serum or PlasmaOrdered By: Jim Vega on 02-06-2023 AST [Catalytic activity/Vol] 12 U/L 13-39 [facility] Automated erythrocytes count in urine sediment (number/area)Ordered By: Jim Vega on 02-06-2023 RBC Auto (Urine sed) [#/Area] 5-9 [HPF] 0-4 [facility] Automated leukocytes count i n urine sediment (number/area)Ordered By: Jim Vega on 02-06-2023 WBC Auto (Urine sed) [#/Area] 3-4 [HPF] 0-4 [facility] Basophils Auto (Bld) [#/Vol] Ordered By: Jim Vega on 02-06-2023 Basophils (Bld) [#/Vol] 0.0 10*3/uL 0.0-0.2 [facility] Basophils/100 WBC Auto (Bld) Ordered By: Jim Vega on 02-06-2023 Basophils/100 WBC (Bld) 0.7 % . [facility] Bilirubin Test strip Ql (U)O rdered By: Jim Vega on 02-06-2023 Bilirubin Ql (U) Negative Negative [facility] Bilirubin.total [Mass/volume ] in Serum or PlasmaOrdered By: Jim Vega on 02-06-2023 Bilirubin [Mass/Vol] 0.5 mg/dL 0.3-1.0 [facility] Calcium [Mass/volume] in Ser um or PlasmaOrdered By: Jim Vega on 02-06-2023 Calcium [Mass/Vol] 8.5 mg/dL 8.6-10.3 [facility] Carbon dioxide, total [Moles /volume] in Serum or PlasmaOrdered By: Jim Vega on 02-06-2023 CO2 [Moles/Vol] 26.0 mmol/L 21.0-31.0 [facility] Chloride [Moles/volume] in S salas or PlasmaOrdered By: Jim Vega on 02-06-2023 Chloride [Moles/Vol] 105 mmol/L 98-107 [facility] Color Auto (U)Ordered By: Narinder Vega on 02-06-2023 Color (U) Yellow Yellow [facility] Creatinine [Mass/volume] in Serum or PlasmaOrdered By: Jim Vega on 02-06-2023 Creatinine [Mass/Vol] 0.78 mg/dL 0.60-1.20 [facility] Eosinophils Auto (Bld) [#/Vo l]Ordered By: Jim Vega on 02-06-2023 Eosinophils (Bld) [#/Vol] 0.1 10*3/uL 0.0-0.45 [facility] Eosinophils/100 WBC Auto (Bl d)Ordered By: Jim Vega on 02-06-2023 Eosinophils/100 WBC (Bld) 2.2 % . [facility] Erythrocyte distribution wid th Auto (RBC) [Ratio]Ordered By: Jim Vega on 02-06-2023 Erythrocyte distribution width (RBC) [Ratio] 14.3 % 11.9-15.3 [facility] Globulin Calc (S) [Mass/Vol] Ordered By: Jim Vega on 02-06-2023 Globulin (S) [Mass/Vol] 3.0 g/dL [facility] Glucose [Mass/volume] in Ser um or PlasmaOrdered By: Jim Vega on 02-06-2023 Glucose [Mass/Vol] 92 mg/dL 70-100 [facility] Comment on above: ADA recommended refe rence rangeRandom Glucose Reference Range is dependent on time and content of last meal. Glucose of more than 200 mg/dL in a nonstressed, ambulatory subject supports the diagnosis of Diabetes Mellitus. HCG ( test) IA.rapi d Ql (U)Ordered By: Jim Vega on 02-06-2023 HCG ( test) Ql (U) Negative [facility] Hematocrit Auto (Bld) [Volum e fraction]Ordered By: Jim Vega on 02-06-2023 Hematocrit (Bld) [Volume fraction] 35.2 % 34.0-46.4 [facility] Hemoglobin [Mass/volume] in BloodOrdered By: Jim Vega on 02-06-2023 Hemoglobin (Bld) [Mass/Vol] 11.0 g/dL 11.8-15.4 [facility] Ketones Auto test strip (U) [Mass/Vol]Ordered By: Jim Vega on 02-06-2023 Ketones (U) [Mass/Vol] Negative Negative [facility] - UrinalysisOrder ed By: Jim Vega on 02-06-2023 Hyaline casts LM Ql (Urine sed) 0-8 [LPF] 0-8 [facility] Leukocytes [#/volume] correc delmer for nucleated erythrocytes in Blood by Automated counOrdered By: Jim Vega on 02-06-2023 WBC corrected for nucl RBC Auto (Bld) [#/Vol] 5.3 10*3/uL 3.8-11.6 [facility] Lymphocytes Auto (Bld) [#/Vo l]Ordered By: Jim Vega on 02-06-2023 Lymphocytes (Bld) [#/Vol] 1.4 10*3/uL 1.00-4.8 [facility] Lymphocytes/100 WBC Auto (Bl d)Ordered By: Jim Vega on 02-06-2023 Lymphocytes/100 WBC (Bld) 25.8 % . [facility] MCH Auto (RBC) [Entitic mass ]Ordered By: Jim Vega on 02-06-2023 MCH (RBC) [Entitic mass] 22.8 pg 24.7-34.3 [facility] MCHC Auto (RBC) [Mass/Vol]Or dered By: Jim Vega on 02-06-2023 MCHC (RBC) [Mass/Vol] 31.1 g/dL 32.0-35.0 [facility] MCV Auto (RBC) [Entitic vol] Ordered By: Jim Vega on 02-06-2023 MCV (RBC) [Entitic vol] 73.2 fL 80-100 [facility] Monocyte distribution width [Entitic volume] in Blood by AutomatedOrdered By: Jim Vega on 02-06-2023 Monocyte distribution width Auto (Bld) [Entitic vol] 18.18 % 0.00-20.00 [facility] Monocytes Auto (Bld) [#/Vol] Ordered By: Jim Vega on 02-06-2023 Monocytes (Bld) [#/Vol] 0.4 10*3/uL 0.0-0.8 [facility] Monocytes/100 WBC Auto (Bld) Ordered By: Jim Vega on 02-06-2023 Monocytes/100 WBC (Bld) 7.1 % . [facility] Neutrophils Auto (Bld) [#/Vo l]Ordered By: Jim Vega on 02-06-2023 Neutrophils (Bld) [#/Vol] 3.4 10*3/uL 1.8-7.7 [facility] Neutrophils/100 WBC Auto (Bl d)Ordered By: Jim Vega on 02-06-2023 Neutrophils/100 WBC (Bld) 64.2 % . [facility] Nitrite Test strip Ql (U)Ord ered By: Jim Vega on 02-06-2023 Nitrite Ql (U) Negative Negative [facility] No Panel InformationOrdered By: Jim Vega on 02-06-2023 Estimated GFR (CKD-EPI) > 60.0 mL/Min [facility] Creatinine Clearance (Chem 100.96 [facility] Nucleated erythrocytes [Pres ence] in Blood by Automated countOrdered By: Jim Vega on 02-06-2023 Nucleated RBC Auto Ql (Bld) 0.1 /100{WBC} 0-0.5 [facility] Platelet mean volume Auto (B ld) [Entitic vol]Ordered By: Jim Vega on 02-06-2023 Platelet mean volume (Bld) [Entitic vol] 9.4 fL 6.3-10.7 [facility] Platelets Auto (Bld) [#/Vol] Ordered By: Jim Vega on 02-06-2023 Platelets (Bld) [#/Vol] 175 10*3/uL 150-450 [facility] Potassium [Moles/volume] in Serum or PlasmaOrdered By: Jim Vega on 02-06-2023 Potassium [Moles/Vol] 3.5 mmol/L 3.5-5.1 [facility] Protein Auto test strip (U) [Mass/Vol]Ordered By: Jim Vega on 02-06-2023 Protein (U) [Mass/Vol] Negative Negative [facility] Protein [Mass/volume] in Ser um or PlasmaOrdered By: Jim Vega on 02-06-2023 Protein [Mass/Vol] 7.2 g/dL 6.4-8.9 [facility] RBC Auto (Bld) [#/Vol]Ordere d By: Jim Vega on 02-06-2023 RBC (Bld) [#/Vol] 4.81 10*6/uL 3.60-5.00 [facility] Serum or plasma albumin/glob ulin mass ratioOrdered By: Jim Vega on 02-06-2023 Albumin/Globulin [Mass ratio] 1.4 {ratio} [facility] Serum or plasma anion gap de terminationOrdered By: Jim Vega on 02-06-2023 Anion gap [Moles/Vol] 9.5 mmol/L 6.0-15.0 [facility] Sodium [Moles/volume] in Ser um or PlasmaOrdered By: Jim Vega on 02-06-2023 Sodium [Moles/Vol] 137 mmol/L 136-145 [facility] Specific gravity Auto test s trip (U) [Rel density]Ordered By: Jim Vega on 02-06-2023 Specific gravity (U) [Rel density] 1.010 1.001-1.03 0 [facility] Squamous epithelial cells de tection in urine sediment by light microscopyOrdered By: Jim Vega on 02-06-2023 Epithelial cells.squamous LM Ql (Urine sed) 5-9 [HPF] 0-2 [facility] Urea nitrogen [Mass/volume] in Serum or PlasmaOrdered By: Jim Vega on 02-06-2023 Urea nitrogen [Mass/Vol] 11 mg/dL 7-25 [facility] Urine bacteria detection by automated methodOrdered By: Jim Vega on 02-06-2023 Bacteria Auto Ql (U) None seen None Seen [facility] Urine clarity by refractomet ry automatedOrdered By: Jim Vega on 02-06-2023 Clarity Refractometry automated (U) Clear Clear [facility] Urine glucose measurement by automated test strip (mass/volume)Ordered By: Jim Vega on 02-06-2023 Glucose Auto test strip (U) [Mass/Vol] Normal mg/dL Normal [facility] Urine hemoglobin detection b y automated test stripOrdered By: Jim Vega on 02-06-2023 Hemoglobin Auto test strip Ql (U) Trace Negative [facility] Urine leukocyte esterase det ection by automated test stripOrdered By: Jim Vega on 02-06-2023 Leukocyte esterase Auto test strip Ql (U) Negative Negative [facility] Urobilinogen Auto test strip (U) [Mass/Vol]Ordered By: Jim Vega on 02-06-2023 Urobilinogen (U) [Mass/Vol] Normal mg/dL Normal [facility] WBC Auto (Bld) [#/Vol]Ordere d By: Jim Vega on 02-06-2023 WBC (Bld) [#/Vol] 5.3 10*3/uL 3.8-11.6 [facility] pH Auto test strip (U)Ordere d By: Jim Vega on 02-06-2023 pH (U) 8.0 [pH] 5.0-9.0 [facility] Ferritin [Mass/volume] in Se rum or PlasmaOrdered By: Kelly Hough on 01-24-2023 Ferritin [Mass/Vol] 64.3 ng/mL 11.0-306.8 [facility] Iron [Mass/volume] in Serum or PlasmaOrdered By: Kelly Hough on 01-24-2023 Iron [Mass/Vol] 85 ug/dL 50-212 [facility] Iron binding capacity [Mass/ volume] in Serum or PlasmaOrdered By: Kelly Hough on 01-24-2023 Iron binding capacity [Mass/Vol] 227 ug/dL 255-450 [facility] Iron saturation [Mass Fracti on] in Serum or PlasmaOrdered By: Kelly Hough on 01-24-2023 Iron saturation [Mass fraction] 37.4 % 20-50 [facility] Transferrin [Mass/volume] in Serum or PlasmaOrdered By: Kelly Hough on 01-24-2023 Transferrin [Mass/Vol] 162 mg/dL 203-362 [facility] Basophils Auto (Bld) [#/Vol] Ordered By: Kelly Hough on 12-25-2022 Basophils (Bld) [#/Vol] 0.0 10*3/uL 0.0-0.2 [facility] Basophils/100 WBC Auto (Bld) Ordered By: Kelly Hough on 12-25-2022 Basophils/100 WBC (Bld) 0.3 % . [facility] C reactive protein [Mass/vol ume] in Serum or PlasmaOrdered By: Imad Asaad on 12-25-2022 CRP [Mass/Vol] < 0.5 mg/dL 0.0-0.5 [facility] Calprotectin [Mass/mass] in StoolOrdered By: Jose Shanks on 12-25-2022 Calprotectin (Stl) [Mass/Mass] 32 ug/g 0-120 [facility] Comment on above: Concentration Interp retation Follow-Up<16 - 50 ug/g Normal None>50 -120 ug/g Borderline Re-evaluate in 4-6 weeks >120 ug/g Abnormal Repeat as clinically indicatedPerformed at: - [facility] [id number] Director: Artemio Guillen MD, Phone: [phone] Eosinophils Auto (Bld) [#/Vo l]Ordered By: Kelly Hough on 12-25-2022 Eosinophils (Bld) [#/Vol] 0.1 10*3/uL 0.0-0.45 [facility] Eosinophils/100 WBC Auto (Bl d)Ordered By: Kelly Hough on 12-25-2022 Eosinophils/100 WBC (Bld) 1.1 % . [facility] Erythrocyte distribution wid th Auto (RBC) [Ratio]Ordered By: Kelly Hough on 12-25-2022 Erythrocyte distribution width (RBC) [Ratio] 15.5 % 11.9-15.3 [facility] Erythrocyte sedimentation ra te by Photometric methodOrdered By: Jose Shanks on 12-25-2022 ESR Photometric method (Bld) [Velocity] 32 mm/hr 0-19 [facility] Ferritin [Mass/volume] in Se rum or PlasmaOrdered By: Kelly Hough on 12-25-2022 Ferritin [Mass/Vol] 58.3 ng/mL 11.0-306.8 [facility] Hematocrit Auto (Bld) [Volum e fraction]Ordered By: Kelly Hough on 12-25-2022 Hematocrit (Bld) [Volume fraction] 35.3 % 34.0-46.4 [facility] Hemoglobin [Mass/volume] in BloodOrdered By: Kelly Hough on 12-25-2022 Hemoglobin (Bld) [Mass/Vol] 11.0 g/dL 11.8-15.4 [facility] IgA [Mass/volume] in Serum o r PlasmaOrdered By: Jose Shanks on 12-25-2022 IgA [Mass/Vol] 164 mg/dL 87-352 [facility] Comment on above: Performed at: [address] [id number] Director: Alan Macias PhD, Phone: [phone] Iron [Mass/volume] in Serum or PlasmaOrdered By: Kelly Hough on 12-25-2022 Iron [Mass/Vol] 112 ug/dL 50-212 [facility] Iron binding capacity [Mass/ volume] in Serum or PlasmaOrdered By: Kelly Hough on 12-25-2022 Iron binding capacity [Mass/Vol] 241 ug/dL 255-450 [facility] Iron saturation [Mass Fracti on] in Serum or PlasmaOrdered By: Kelly Hough on 12-25-2022 Iron saturation [Mass fraction] 46.5 % 20-50 [facility] Leukocytes [#/volume] correc delmer for nucleated erythrocytes in Blood by Automated counOrdered By: Kelly Hough on 12-25-2022 WBC corrected for nucl RBC Auto (Bld) [#/Vol] 6.8 10*3/uL 3.8-11.6 [facility] Lymphocytes Auto (Bld) [#/Vo l]Ordered By: Kelly Hough on 12-25-2022 Lymphocytes (Bld) [#/Vol] 1.7 10*3/uL 1.00-4.8 [facility] Lymphocytes/100 WBC Auto (Bl d)Ordered By: Kelly Hough on 12-25-2022 Lymphocytes/100 WBC (Bld) 25.5 % . [facility] MCH Auto (RBC) [Entitic mass ]Ordered By: Kelly Hough on 12-25-2022 MCH (RBC) [Entitic mass] 22.3 pg 24.7-34.3 [facility] MCHC Auto (RBC) [Mass/Vol]Or dered By: Kelly Hough on 12-25-2022 MCHC (RBC) [Mass/Vol] 31.1 g/dL 32.0-35.0 [facility] MCV Auto (RBC) [Entitic vol] Ordered By: Kelly Hough on 12-25-2022 MCV (RBC) [Entitic vol] 71.8 fL 80-100 [facility] Monocytes Auto (Bld) [#/Vol] Ordered By: Kelly Hough on 12-25-2022 Monocytes (Bld) [#/Vol] 0.4 10*3/uL 0.0-0.8 [facility] Monocytes/100 WBC Auto (Bld) Ordered By: Kelly Hough on 12-25-2022 Monocytes/100 WBC (Bld) 6.3 % . [facility] Neutrophils Auto (Bld) [#/Vo l]Ordered By: Kelly Hough on 12-25-2022 Neutrophils (Bld) [#/Vol] 4.5 10*3/uL 1.8-7.7 [facility] Neutrophils/100 WBC Auto (Bl d)Ordered By: Kelly Hough on 12-25-2022 Neutrophils/100 WBC (Bld) 66.8 % . [facility] No Panel InformationOrdered By: Jose Shanks on 12-25-2022 Endomysial IgA Antibody Negative Negative [facility] Nucleated erythrocytes [Pres ence] in Blood by Automated countOrdered By: Kelly Hough on 12-25-2022 Nucleated RBC Auto Ql (Bld) 0.2 /100{WBC} 0-0.5 [facility] Platelet mean volume Auto (B ld) [Entitic vol]Ordered By: Kelly Hough on 12-25-2022 Platelet mean volume (Bld) [Entitic vol] 9.5 fL 6.3-10.7 [facility] Platelets Auto (Bld) [#/Vol] Ordered By: Kelly Hough on 12-25-2022 Platelets (Bld) [#/Vol] 191 10*3/uL 150-450 [facility] RBC Auto (Bld) [#/Vol]Ordere d By: Kelly Hough on 12-25-2022 RBC (Bld) [#/Vol] 4.92 10*6/uL 3.60-5.00 [facility] Serum gliadin peptide IgA an tibody assay (units/volume)Ordered By: Jose Shanks on 12-25-2022 Gliadin peptide IgA Qn (S) 7 units 0-19 [facility] Comment on above: Negative 0 - 19 Weak Positive 20 - 30 Moderate to Strong Positive >30 Serum gliadin peptide IgG an tibody assay (units/volume)Ordered By: Jose Shanks on 12-25-2022 Gliadin peptide IgG Qn (S) 3 units 0-19 [facility] Comment on above: Negative 0 - 19 Weak Positive 20 - 30 Moderate to Strong Positive >30 Serum tissue transglutaminas e (tTG) IgA antibody assay (units/volume)Ordered By: Jose Shanks on 12-25-2022 tTG IgA Qn (S) <2 U/mL 0-3 [facility] Comment on above: Negative 0 - 3 Weak Positive 4 - 10 Positive >10 Tissue Transglutaminase (tTG) has been identified as the endomysial antigen. Studies have demonstr- ated that endomysial IgA antibodies have over 99% specificity for gluten sensitive enteropathy. Serum tissue transglutaminas e (tTG) IgG antibody assay (units/volume)Ordered By: Jose Shanks on 12-25-2022 tTG IgG Qn (S) <2 U/mL 0-5 [facility] Comment on above: Negative 0 - 5 Weak Positive 6 - 9 Positive >9 Thyrotropin [Units/volume] i n Serum or PlasmaOrdered By: Jose Shanks on 12-25-2022 TSH Qn 0.78 m[IU]/L 0.45-5.33 [facility] Thyroxine (T4) free [Mass/vo lume] in Serum or PlasmaOrdered By: Dayne Horton on 12-25-2022 Free T4 [Mass/Vol] 0.93 ng/dL 0.61-1.12 [facility] Transferrin [Mass/volume] in Serum or PlasmaOrdered By: Kelly Hough on 12-25-2022 Transferrin [Mass/Vol] 172 mg/dL 203-362 [facility] Triiodothyronine (T3) Free [ Mass/volume] in Serum or PlasmaOrdered By: Dayne Horton on 12-25-2022 Free T3 [Mass/Vol] 3.54 pg/mL 2.50-3.90 [facility] Vitamin D+Metabolites [Mass/ volume] in Serum or PlasmaOrdered By: Dayne Horton on 12-25-2022 Vitamin D+Metabolites [Mass/Vol] 27.0 ng/mL 30-100 [facility] Comment on above: VITAMIN D STATUS 25( [place])VITAMIN D RANGE (ng/mL) Deficient <20 Insufficient 20 to <30Sufficient 30 to 100Reference: Pam MF,Abelardo NC, Cj GARZA, et al. Evaluation,treatment, and prevention of vitamin D deficiency; an Endocrine Society clinical practice guideline. JCEM. 2010; 96(7):1911-30. WBC Auto (Bld) [#/Vol]Ordere d By: Kelly Hough on 12-25-2022 WBC (Bld) [#/Vol] 6.8 10*3/uL 3.8-11.6 [facility] AMYLASEon 12-07-2022 Amylase [Catalytic activity/Vol] 82 U/L Normal 25-115 [facility] Comment on above: Performed By: #### U MICRO, PREGU, ERUR #### [facility] [address] [address] [address] Adam Mejía CARDIAC REBECCA 3-6on 3 CK [Catalytic activity/Vol] 50 U/L Normal 26-192 [facility] Comment on above: Performed By: #### U MICRO, PREGU, ERUR #### [facility] [address] [address] [address] Adam Mejía CK.MB [Mass/Vol] ng/mL Normal <=3.60 [facility] Comment on above: Performed By: #### U MICRO, PREGU, ERUR #### [facility] [address] [address] [address] Adam Mejía HSTROP <4.0 Normal 4.0-51.3 [facility] Comment on above: Result Comment: CUT- OFF POINTS HAVE BEEN ESTABLISHED BASED ON THE FOURTH UNIVERSAL DEFINITIONS OF MYOCARDIAL INFARCTION. THE UPPER REFERENCE LIMIT (URL) OF TROPONIN, DEFINED THE 99TH PERCENTILE OF cTnI DISTRIBUTION IN A REFERENCE POPULATION, HAS BEEN CONFIRMED THE DECISION THRESHOLD FOR [place] DIAGNOSIS. Performed By: #### U MICRO, PREGU, ERUR #### [facility] [address] [address] [address] Adam Mejía CARDIAC REBECCA ADMITon 023 CK [Catalytic activity/Vol] 60 U/L Normal 26-192 [facility] Comment on above: Performed By: #### U MICRO, PREGU, ERUR #### [facility] [address] [address] [address] Adam Mejía CK.MB [Mass/Vol] ng/mL Normal <=3.60 [facility] Comment on above: Performed By: #### U MICRO, PREGU, ERUR #### [facility] [address] [address] [address] Adam Mejía HSTROP <4.0 Normal 4.0-51.3 [facility] Comment on above: Result Comment: CUT- OFF POINTS HAVE BEEN ESTABLISHED BASED ON THE FOURTH UNIVERSAL DEFINITIONS OF MYOCARDIAL INFARCTION. THE UPPER REFERENCE LIMIT (URL) OF TROPONIN, DEFINED THE 99TH PERCENTILE OF cTnI DISTRIBUTION IN A REFERENCE POPULATION, HAS BEEN CONFIRMED THE DECISION THRESHOLD FOR [place] DIAGNOSIS. Performed By: #### U MICRO, PREGU, ERUR #### [facility] [address] [address] [address] Adam Mejía OSMIN 17 ng/mL Normal 9-82 [facility] Comment on above: Performed By: #### U MICRO, PREGU, ERUR #### [facility] [address] [address] [address] Adam Mejía CBC AUTO DIFFon 12-07-2022 BASO # 0.0 103/ul Normal 0.0-0.1 [facility] Comment on above: Performed By: #### U MICRO, PREGU, ERUR #### [facility] [address] [address] [address] Adam Mejía Basophils/100 WBC (Bld) 0.3 % Normal 0.2-2.0 [facility] Comment on above: Performed By: #### U MICRO, PREGU, ERUR #### [facility] [address] [address] [address] Adam Mejía EO # 0.2 103/ul Normal 0.0-0.7 [facility] Comment on above: Performed By: #### U MICRO, PREGU, ERUR #### [facility] [address] [address] [address] Adam Mejía Eosinophils/100 WBC (Bld) 2.5 % Normal 0.9-7.0 [facility] Comment on above: Performed By: #### U MICRO, PREGU, ERUR #### [facility] [address] [place] [address] Dr. Adam Mejía Erythrocyte distribution width (RBC) [Ratio] 15.2 % Critically high 11.0-15.0 [facility] Comment on above: Performed By: #### U MICRO, PREGU, ERUR #### [facility] [address] [place] [address] Dr. Adam Mejía Hematocrit (Bld) [Volume fraction] 34.8 % Critically low 36.0-48.0 [facility] Comment on above: Performed By: #### U MICRO, PREGU, ERUR #### [facility] [address] [place] [address] Dr. Adam Mejía Hemoglobin (Bld) [Mass/Vol] 10.6 g/dL Critically low 12.0-16.0 [facility] Comment on above: Performed By: #### U MICRO, PREGU, ERUR #### [facility] [address] [place] [address] Dr. Adam Mejía IG # 0.02 10e3/ul Normal 0.00-0.03 [facility] Comment on above: Performed By: #### U MICRO, PREGU, ERUR #### [facility] [address] [place] [address] Dr. Adam Mejía IG % 0.2 % Normal 0.0-0.5 [facility] [facility] Comment on above: Performed By: #### U MICRO, PREGU, ERUR #### [facility] [address] [place] [address] Dr. Adam Mejía LYMPH # 2.1 103/ul Normal 1.2-3.8 [facility] Comment on above: Performed By: #### U MICRO, PREGU, ERUR #### [facility] [address] [place] [address] Dr. Adam Mejía Lymphocytes/100 WBC (Bld) 23.0 % Normal 20.5-60.0 [facility] Comment on above: Performed By: #### U MICRO, PREGU, ERUR #### [facility] [address] [place] [address] Dr. Adam Mejía MANUAL DIFF REQ NO Normal [facility] Comment on above: Performed By: #### U MICRO, PREGU, ERUR #### [facility] [address] [place] [address] Dr. Adam Mejía MCH (RBC) [Entitic mass] 22.5 pg Critically low 26.7-34.0 [facility] Comment on above: Performed By: #### U MICRO, PREGU, ERUR #### [facility] [address] [place] [address] Dr. Adam Mejía MCHC (RBC) [Mass/Vol] 30.5 g/dL Normal 29.9-35.2 [facility] Comment on above: Performed By: #### U MICRO, PREGU, ERUR #### [facility] [address] [place] [address] Dr. Adam Mejía MCV (RBC) [Entitic vol] 73.9 fL Critically low 81.0-99.0 [facility] Comment on above: Performed By: #### U MICRO, PREGU, ERUR #### [facility] [address] [place] [address] Dr. Adam Mejía MONO # 0.5 103/ul Normal 0.3-0.8 [facility] Comment on above: Performed By: #### U MICRO, PREGU, ERUR #### [facility] [address] [place] [address] Dr. Adam Mejía Monocytes/100 WBC (Bld) 5.8 % Normal 1.7-12.0 [facility] Comment on above: Performed By: #### U MICRO, PREGU, ERUR #### [facility] [address] [place] [address] Dr. Adam Mejía NEUT # 6.3 103/ul Normal 1.4-6.5 [facility] Comment on above: Performed By: #### U MICRO, PREGU, ERUR #### [facility] [address] [address] [address] Adam Mejía Neutrophils/100 WBC (Bld) 68.2 % Normal 43.0-75.0 [facility] Comment on above: Performed By: #### U MICRO, PREGU, ERUR #### [facility] [address] [address] [address] Adam Mejía Platelet mean volume (Bld) [Entitic vol] 11.8 fL Normal 9.5-13.5 [facility] Comment on above: Performed By: #### U MICRO, PREGU, ERUR #### [facility] [address] [place] [address] Dr. Adam Mejía PLT 250 103/ul Normal 150-450 [facility] Comment on above: Performed By: #### U MICRO, PREGU, ERUR #### [facility] [address] [place] [address] Dr. Adam Mejía RBC 4.71 106/ul Normal 4.20-5.40 [facility] Comment on above: Performed By: #### U MICRO, PREGU, ERUR #### [facility] [address] [place] [address] Dr. Adam Mejía WBC 9.2 103/ul Normal 4.0-11.0 [facility] Comment on above: Performed By: #### U MICRO, PREGU, ERUR #### [facility] [address] [place] [address] Dr. Adam Mejía ER URINE PROFILEon 3 Bilirubin Ql (U) Negative Normal NEGATIVE [facility] Comment on above: Performed By: #### U MICRO, PREGU, ERUR #### [facility] [address] [place] [address] Dr. Adam Mejía Clarity (U) CLEAR Normal CLEAR [facility] Comment on above: Performed By: #### U MICRO, PREGU, ERUR #### [facility] [address] [address] [address] Adam Mejía Color (U) LT. YELLOW Normal YELLOW [facility] Comment on above: Performed By: #### U MICRO, PREGU, ERUR #### [facility] [address] [address] [address] Adam CLEMENTS A micrscopic examina tion will be performed if indicated. Normal [facility] Comment on above: Performed By: #### U MICRO, PREGU, ERUR #### [facility] [address] [address] [address] Adam Mejía Glucose Ql (U) Negative Normal NEGATIVE [facility] Comment on above: Performed By: #### U MICRO, PREGU, ERUR #### [facility] [address] [place] [address] Dr. Adam Mejía Hemoglobin Ql (U) SMALL Abnormal NEGATIVE [facility] Comment on above: Performed By: #### U MICRO, PREGU, ERUR #### [facility] [address] [address] [address] Adam Mejía Ketones Ql (U) Negative Normal NEGATIVE [facility] Comment on above: Performed By: #### U MICRO, PREGU, ERUR #### [facility] [address] [address] [address] Adam Mejía LEUKOCYTES Negative Normal NEGATIVE [facility] Comment on above: Performed By: #### U MICRO, PREGU, ERUR #### [facility] [address] [address] [address] Adam Mejía Nitrite Ql (U) Negative Normal NEGATIVE [facility] Comment on above: Performed By: #### U MICRO, PREGU, ERUR #### [facility] [address] [address] [address] Adam Mejía pH (U) 8.0 [pH] Normal 5-9 [facility] Comment on above: Performed By: #### U MICRO, PREGU, ERUR #### [facility] [address] [address] [address] Adam Mejía SPEC GRAVITY 1.010 Normal 1.005-<=1. 025 [facility] Comment on above: Performed By: #### U MICRO, PREGU, ERUR #### [facility] [address] [place] [address] Dr. Adam Mejía UA PROTEIN Negative Normal NEGATIVE/ TRACE [facility] Comment on above: Performed By: #### U MICRO, PREGU, ERUR #### [facility] [address] [place] [address] Dr. Adam Mejía UR MICRO IND INDICATED Normal [facility] Comment on above: Performed By: #### U MICRO, PREGU, ERUR #### [facility] [address] [place] [address] Dr. Adam Mejía Urobilinogen Qn (U) 1.0 {Brinda'U}/dL Normal 0.2 - 1. 0 [facility] Comment on above: Performed By: #### U MICRO, PREGU, ERUR #### [facility] [address] [place] [address] Dr. Adam Mejía LACTATE/LACTIC ACIDon 2022 Lactate [Moles/Vol] 0.5 mmol/L Normal 0.4-2.0 [facility] Comment on above: Performed By: #### U MICRO, PREGU, ERUR #### [facility] [address] [place] [address] Dr. Adam Mejía LIPASEon 12-07-2022 Lipase [Catalytic activity/Vol] 219.0 U/L Normal 73.0-393.0 [facility] Comment on above: Performed By: #### U MICRO, PREGU, ERUR #### [facility] [address] [place] [address] Dr. Adam Mejía LIVER PROFILEon 12-07-2022 Albumin [Mass/Vol] 3.7 g/dL Normal 3.4-5.0 [facility] Comment on above: Performed By: #### U MICRO, PREGU, ERUR #### [facility] [address] [place] [address] Dr. Adam Mejía Albumin/Globulin [Mass ratio] 1.1 {ratio} Normal [facility] Comment on above: Performed By: #### U MICRO, PREGU, ERUR #### [facility] [address] [place] [address] Dr. Adam Mejía ALP [Catalytic activity/Vol] 57 U/L Normal 46-116 [facility] Comment on above: Performed By: #### U MICRO, PREGU, ERUR #### [facility] [address] [place] [address] Dr. Adam Mejía ALT [Catalytic activity/Vol] 15 U/L Normal 14-59 [facility] Comment on above: Performed By: #### U MICRO, PREGU, ERUR #### [facility] [address] [place] [address] Dr. Adam Mejía AST [Catalytic activity/Vol] 13 U/L Critically low 15-37 [facility] Comment on above: Performed By: #### U MICRO, PREGU, ERUR #### [facility] [address] [place] [address] Dr. Adam Mejía BILI, CONJUGATED 0.2 mg/dL Normal 0.0-0.2 [facility] Comment on above: Performed By: #### U MICRO, PREGU, ERUR #### [facility] [address] [place] [address] Dr. Adam Mejía Bilirubin [Mass/Vol] 0.2 mg/dL Normal 0.2-1.0 [facility] Comment on above: Performed By: #### U MICRO, PREGU, ERUR #### [facility] [address] [place] [address] Dr. Adam Mejía Globulin (S) [Mass/Vol] 3.4 g/dL Normal [facility] Comment on above: Performed By: #### U MICRO, PREGU, ERUR #### [facility] [address] [place] [address] Dr. Adam Mejía Protein [Mass/Vol] 7.1 g/dL Normal 6.4-8.2 [facility] Comment on above: Performed By: #### U MICRO, PREGU, ERUR #### [facility] [address] [place] [address] Dr. Adam Mejía PROF CHEM 8 (BAS METB)on Anion gap [Moles/Vol] 12.0 mmol/L Normal [facility] Comment on above: Performed By: #### U MICRO, PREGU, ERUR #### [facility] [address] [address] [address] Adam Mejía Calcium [Mass/Vol] 8.8 mg/dL Normal 8.5-10.1 [facility] Comment on above: Performed By: #### U MICRO, PREGU, ERUR #### [facility] [address] [address] [address] Adam Mejía Chloride [Moles/Vol] 102 mmol/L Normal 98-107 [facility] Comment on above: Performed By: #### U MICRO, PREGU, ERUR #### [facility] [address] [address] [address] Adam Mejía CO2 [Moles/Vol] 26.9 mmol/L Normal 21.0-32.0 [facility] Comment on above: Performed By: #### U MICRO, PREGU, ERUR #### [facility] [address] [address] [address] Adam Mejía Creatinine [Mass/Vol] 0.75 mg/dL Normal 0.55-1.02 [facility] Comment on above: Performed By: #### U MICRO, PREGU, ERUR #### [facility] [address] [address] [address] Adam Mejía EGFR-AF MALTESE >60 Normal >=60 [facility] Comment on above: Performed By: #### U MICRO, PREGU, ERUR #### [facility] [address] [address] [address] Adam Mejía EGFR-NON AF MALTESE >60 Normal >=60 [facility] Comment on above: Performed By: #### U MICRO, PREGU, ERUR #### [facility] [address] [address] [address] Adam Mejía Glucose [Mass/Vol] 97 mg/dL Normal 74-106 [facility] Comment on above: Performed By: #### U MICRO, PREGU, ERUR #### [facility] [address] [address] [address] Adam Mejía Potassium [Moles/Vol] 3.9 mmol/L Normal 3.5-5.1 [facility] Comment on above: Performed By: #### U MICRO, PREGU, ERUR #### [facility] [address] [place] [address] Dr. Adam Mejía Sodium [Moles/Vol] 137 mmol/L Normal 136-145 [facility] Comment on above: Performed By: #### U MICRO, PREGU, ERUR #### [facility] [address] [place] [address] Dr. Adam Mejía Urea nitrogen [Mass/Vol] 13.0 mg/dL Normal 7.0-18.0 [facility] Comment on above: Performed By: #### U MICRO, PREGU, ERUR #### [facility] [address] [place] [address] Dr. Adam Mejía Urea nitrogen/Creatinine [Mass ratio] 17.3 mg/mg Normal [facility] Comment on above: Performed By: #### U MICRO, PREGU, ERUR #### [facility] [address] [place] [address] Dr. Adam Mejía URINE MICROSCOPIC ONLYon BACTERIA NONE SEEN Normal NONE SEEN [facility] Comment on above: Performed By: #### U MICRO, PREGU, ERUR #### [facility] [address] [place] [address] Dr. Adam Mejía Bacteria identified Cx Nom (U) NOT INDICATED Normal [facility] Comment on above: Performed By: #### U MICRO, PREGU, ERUR #### [facility] [address] [place] [address] Dr. Adam Mejía CAST NONE SEEN Normal NONE SEEN [facility] Comment on above: Performed By: #### U MICRO, PREGU, ERUR #### [facility] [address] [place] [address] Dr. Adam Mejía Crystals LM Nom (Urine sed) NONE SEEN Normal NONE SEEN [facility] Comment on above: Performed By: #### U MICRO, PREGU, ERUR #### [facility] [address] [address] [address] Adam Mejía Epithelial cells LM Ql (Urine sed) RARE Normal NONE SEEN /RARE [facility] Comment on above: Performed By: #### U MICRO, PREGU, ERUR #### [facility] [address] [address] [address] Adam Mejía MUCOUS NONE SEEN Normal NONE SEEN [facility] Comment on above: Performed By: #### U MICRO, PREGU, ERUR #### [facility] [address] [address] [address] Adam Mejía RBC 2-5 Abnormal 0-2 [facility] Comment on above: Performed By: #### U MICRO, PREGU, ERUR #### [facility] [address] [address] [address] Adam Mejía WBC NONE SEEN Normal NONE SEEN [facility] Comment on above: Performed By: #### U MICRO, PREGU, ERUR #### [facility] [address] [address] [address] Adam Mejía XR ABD FLAT UP_PA [...] LENI ANGEL Date: 2022-12-07 00:23 Normal [facility] US PELVIS TRANSVAGon 03-15-2 023 US PELVIS TRANSVAG EXAMINATION: US PELV [...] by: KALPESH FOWLER Date: 2022-11-29 11:27 Normal [facility] No Panel InformationOrdered By: Dayne Horton on 10-12-2022 25-Hydroxy Vitamin D Total 10.4 ng/mL 30-100 [facility] Comment on above: VITAMIN D STATUS 25( [place])VITAMIN D RANGE (ng/mL) Deficient <20 Insufficient 20 to <30Sufficient 30 to 100Reference: Pam MF,Abelardo NC, Cj GARZA, et al. Evaluation,treatment, and prevention of vitamin D deficiency; an Endocrine Society clinical practice guideline. JCEM. 2010; 96(7):1911-30. Serum or plasma thyroglobuli n antibody assay (units/volume)Ordered By: Dayne Horton on 10-12-2022 Thyroglobulin Ab Qn [IU]/mL 0.0-0.9 [facility] Comment on above: Thyroglobulin Antibo dy measured by FavbuyMethodologyPerformed at: - [facility] [address], [place] [id number] Director: Alan Macias PhD, Phone: [phone] Serum or plasma thyroperoxid ase antibody assay (units/volume)Ordered By: Dayne Horton on 10-12-2022 TPO Ab Qn 11 [IU]/mL 0-34 [facility] Serum thyrotropin receptor a ntibody assay (units/volume)Ordered By: Dayne Horton on 10-12-2022 TSH receptor Ab Qn (S) <1.10 IU/L 0.00-1.75 [facility] Comment on above: Performed at: [address] [id number] Director: Artemio Guillen MD, Phone: [phone] TSH DL <= 0.005 mIU/L QnOrde red By: Dayne Horton on 10-12-2022 TSH Qn 0.06 m[IU]/L 0.45-5.33 [facility] Thyroxine (T4) free [Mass/vo lume] in Serum or PlasmaOrdered By: Dayne Horton on 10-12-2022 Free T4 [Mass/Vol] 1.02 ng/dL 0.61-1.12 [facility] Triiodothyronine (T3) Free [ Mass/volume] in Serum or PlasmaOrdered By: Dayne Horton on 10-12-2022 Free T3 [Mass/Vol] 3.90 pg/mL 2.50-3.90 [facility] Basophils Auto (Bld) [#/Vol] Ordered By: Kelly Hough on 10-03-2022 Basophils (Bld) [#/Vol] 0.0 10*3/uL 0.0-0.2 [facility] Basophils/100 WBC Auto (Bld) Ordered By: Kelly Hough on 10-03-2022 Basophils/100 WBC (Bld) 0.7 % . [facility] CT biopsyOrdered By: Kelly Ramos on 10-03-2022 Transferrin [Mass/Vol] 230 mg/dL 180-380 [facility] Eosinophils Auto (Bld) [#/Vo l]Ordered By: Kelly Hough on 10-03-2022 Eosinophils (Bld) [#/Vol] 0.1 10*3/uL 0.0-0.45 [facility] Eosinophils/100 WBC Auto (Bl d)Ordered By: Kelly Hough on 10-03-2022 Eosinophils/100 WBC (Bld) 2.4 % . [facility] Erythrocyte distribution wid th Auto (RBC) [Ratio]Ordered By: Kelly Hough on 10-03-2022 Erythrocyte distribution width (RBC) [Ratio] 15.2 % 11.9-15.3 [facility] Ferritin [Mass/volume] in Se rum or PlasmaOrdered By: Kelly Hough on 10-03-2022 Ferritin [Mass/Vol] 7.7 ng/mL 11-306.8 [facility] Hematocrit Auto (Bld) [Volum e fraction]Ordered By: Kelly Hough on 10-03-2022 Hematocrit (Bld) [Volume fraction] 31.2 % 34.0-46.4 [facility] Hemoglobin [Mass/volume] in BloodOrdered By: Kelly Hough on 10-03-2022 Hemoglobin (Bld) [Mass/Vol] 9.7 g/dL 11.8-15.4 [facility] Iron [Mass/volume] in Serum or PlasmaOrdered By: Kelly Hough on 10-03-2022 Iron [Mass/Vol] 96 ug/dL 40-150 [facility] Iron binding capacity [Mass/ volume] in Serum or PlasmaOrdered By: Kelly Hough on 10-03-2022 Iron binding capacity [Mass/Vol] 322 ug/dL 255-450 [facility] Iron saturation [Mass Fracti on] in Serum or PlasmaOrdered By: Kelly Hough on 10-03-2022 Iron saturation [Mass fraction] 29.8 % 20-50 [facility] Leukocytes [#/volume] correc delmer for nucleated erythrocytes in Blood by Automated counOrdered By: Kelly Hough on 10-03-2022 WBC corrected for nucl RBC Auto (Bld) [#/Vol] 5.6 10*3/uL 3.8-11.6 [facility] Lymphocytes Auto (Bld) [#/Vo l]Ordered By: Kelly Hough on 10-03-2022 Lymphocytes (Bld) [#/Vol] 1.7 10*3/uL 1.00-4.8 [facility] Lymphocytes/100 WBC Auto (Bl d)Ordered By: Kelly Hough on 10-03-2022 Lymphocytes/100 WBC (Bld) 30.9 % . [facility] MCH Auto (RBC) [Entitic mass ]Ordered By: Kelly Hough on 10-03-2022 MCH (RBC) [Entitic mass] 21.8 pg 24.7-34.3 [facility] MCHC Auto (RBC) [Mass/Vol]Or dered By: Kelly Hough on 10-03-2022 MCHC (RBC) [Mass/Vol] 31.2 g/dL 32.0-35.0 [facility] MCV Auto (RBC) [Entitic vol] Ordered By: Kelly Hough on 10-03-2022 MCV (RBC) [Entitic vol] 70.0 fL 80-100 [facility] Monocytes Auto (Bld) [#/Vol] Ordered By: Kelly Hough on 10-03-2022 Monocytes (Bld) [#/Vol] 0.4 10*3/uL 0.0-0.8 [facility] Monocytes/100 WBC Auto (Bld) Ordered By: Kelly Hough on 10-03-2022 Monocytes/100 WBC (Bld) 6.3 % . [facility] Neutrophils Auto (Bld) [#/Vo l]Ordered By: Kelly Hough on 10-03-2022 Neutrophils (Bld) [#/Vol] 3.4 10*3/uL 1.8-7.7 [facility] Neutrophils/100 WBC Auto (Bl d)Ordered By: Kelly Hough on 10-03-2022 Neutrophils/100 WBC (Bld) 59.7 % . [facility] Nucleated erythrocytes [Pres ence] in Blood by Automated countOrdered By: Kelly Hough on 10-03-2022 Nucleated RBC Auto Ql (Bld) 0.1 /100{WBC} 0-0.5 [facility] Platelet mean volume Auto (B ld) [Entitic vol]Ordered By: Kelly Hough on 10-03-2022 Platelet mean volume (Bld) [Entitic vol] 9.4 fL 6.3-10.7 [facility] Platelets Auto (Bld) [#/Vol] Ordered By: Kelly Hough on 10-03-2022 Platelets (Bld) [#/Vol] 226 10*3/uL 150-450 [facility] RBC Auto (Bld) [#/Vol]Ordere d By: Kelly Hough on 10-03-2022 RBC (Bld) [#/Vol] 4.46 10*6/uL 3.60-5.00 [facility] WBC Auto (Bld) [#/Vol]Ordere d By: eKlly Hough on 10-03-2022 WBC (Bld) [#/Vol] 5.6 10*3/uL 3.8-11.6 [facility] Free thyroxine indexOrdered By: Yudelka Lopez on 10-02-2022 Free T4 index Calc [Mass/Vol] 2.8 1.2-4.9 [facility] No Panel InformationOrdered By: Yudelka Lopez on 10-02-2022 Free Thyroxine (T4) Direct 8.6 ug/dL 4.5-12.0 [facility] TSH DL <= 0.005 mIU/L QnOrde red By: Yudelka Lopez on 10-02-2022 TSH Qn 0.037 m[IU]/L 0.450-4.50 0 [facility] Triiodothyronine (T3) [Mass/ volume] in Serum or PlasmaOrdered By: Yudelka Lopez on 10-02-2022 T3 [Mass/Vol] 135 ng/dL 71-180 [facility] Comment on above: Performed at: [address] [id number] Director: Alan Macias PhD, Phone: [phone] Triiodothyronine (T3) resin uptake testOrdered By: Yudelka Lopez on 10-02-2022 T3RU 33 % 24-39 [facility] Activated partial thrombopla stin time (aPTT) in platelet poor plasma by coagulation aOrdered By: Jim Vega on 09-21-2022 aPTT Coag (PPP) [Time] 30.8 s 25.1-36.5 [facility] Albumin [Mass/volume] in Ser um or PlasmaOrdered By: Jim Vega on 09-21-2022 Albumin [Mass/Vol] 3.7 g/dL 3.2-5.5 [facility] Automated erythrocytes count in urine sediment (number/area)Ordered By: Jim Vega on 09-21-2022 RBC Auto (Urine sed) [#/Area] 1-2 [HPF] 0-4 [facility] Automated leukocytes count i n urine sediment (number/area)Ordered By: Jim Vega on 09-21-2022 WBC Auto (Urine sed) [#/Area] 0-1 [HPF] 0-4 [facility] Basophils Auto (Bld) [#/Vol] Ordered By: Jim Vega on 09-21-2022 Basophils (Bld) [#/Vol] 0.0 10*3/uL 0.0-0.2 [facility] Basophils/100 WBC Auto (Bld) Ordered By: Jim Vega on 09-21-2022 Basophils/100 WBC (Bld) 0.5 % . [facility] Bilirubin Test strip Ql (U)O rdered By: Jim Vega on 09-21-2022 Bilirubin Ql (U) Negative Negative [facility] COVID CepheidOrdered By: Rahat Vega on 09-21-2022 SARS-CoV-2 (COVID-19) Ab IA Ql Negative Negative [facility] Comment on above: This is a duplicate [employer] Xpert Xpress CoV-2/Flu/RSV Plus RNA by RT-PCR result to be used for statistical tracking purpose only. SARS-CoV-2 (COVID-19) RNA HIRAM+probe Ql (Unsp spec) [facility] SARS-CoV-2 (COVID-19) RNA HIRAM+probe Ql (Unsp spec) [facility] Color Auto (U)Ordered By: Narinder Vega on 09-21-2022 Color (U) Yellow Yellow [facility] Creatinine and Glomerular fi ltration rate.predicted panel (S/P/Bld)Ordered By: Jim Vega on 09-21-2022 Creatinine [Mass/Vol] 0.79 mg/dL 0.44-1.03 [facility] Eosinophils Auto (Bld) [#/Vo l]Ordered By: Jim Vega on 09-21-2022 Eosinophils (Bld) [#/Vol] 0.1 10*3/uL 0.0-0.45 [facility] Eosinophils/100 WBC Auto (Bl d)Ordered By: Jim Vega on 09-21-2022 Eosinophils/100 WBC (Bld) 2.7 % . [facility] Erythrocyte distribution wid th Auto (RBC) [Ratio]Ordered By: Jim Vega on 09-21-2022 Erythrocyte distribution width (RBC) [Ratio] 15.6 % 11.9-15.3 [facility] Estimated glomerular filtrat ion rate (GFR) non- AmericanOrdered By: Jim Vega on 09-21-2022 GFR/1.73 sq M.predicted among non-blacks MDRD (S/P/Bld) [Vol rate/Area] > 60 mL/Min [facility] Globulin Calc (S) [Mass/Vol] Ordered By: Jim Vega on 09-21-2022 Globulin (S) [Mass/Vol] 3.3 g/dL [facility] HCG ( test) IA.rapi d Ql (U)Ordered By: Jim Vega on 09-21-2022 HCG ( test) Ql (U) Negative [facility] Hematocrit Auto (Bld) [Volum e fraction]Ordered By: Jim Vega on 09-21-2022 Hematocrit (Bld) [Volume fraction] 31.9 % 34.0-46.4 [facility] Hemoglobin [Mass/volume] in BloodOrdered By: Jim Vega on 09-21-2022 Hemoglobin (Bld) [Mass/Vol] 9.9 g/dL 11.8-15.4 [facility] Ketones Auto test strip (U) [Mass/Vol]Ordered By: Jim Vega on 09-21-2022 Ketones (U) [Mass/Vol] Negative Negative [facility] - CoagulationOrde red By: Jim Vega on 09-21-2022 PT Coag (PPP) [Time] 13.3 s 9.0-12.9 [facility] - UrinalysisOrder ed By: Jim Vega on 09-21-2022 Hyaline casts LM Ql (Urine sed) None seen [LPF] 0-8 [facility] Leukocytes [#/volume] correc delmer for nucleated erythrocytes in Blood by Automated counOrdered By: Jim Vega on 09-21-2022 WBC corrected for nucl RBC Auto (Bld) [#/Vol] 5.4 10*3/uL 3.8-11.6 [facility] Lymphocytes Auto (Bld) [#/Vo l]Ordered By: Jim Vega on 09-21-2022 Lymphocytes (Bld) [#/Vol] 1.4 10*3/uL 1.00-4.8 [facility] Lymphocytes/100 WBC Auto (Bl d)Ordered By: Jim Vega on 09-21-2022 Lymphocytes/100 WBC (Bld) 26.1 % . [facility] MCH Auto (RBC) [Entitic mass ]Ordered By: Jim Vega on 09-21-2022 MCH (RBC) [Entitic mass] 21.7 pg 24.7-34.3 [facility] MCHC Auto (RBC) [Mass/Vol]Or dered By: Jim Vega on 09-21-2022 MCHC (RBC) [Mass/Vol] 31.0 g/dL 32.0-35.0 [facility] MCV Auto (RBC) [Entitic vol] Ordered By: Jim Vega on 09-21-2022 MCV (RBC) [Entitic vol] 70.1 fL 80-100 [facility] Monocyte distribution width [Entitic volume] in Blood by AutomatedOrdered By: Jim Vega on 09-21-2022 Monocyte distribution width Auto (Bld) [Entitic vol] 15.00 % 0.00-20.00 [facility] Monocytes Auto (Bld) [#/Vol] Ordered By: Jim Vega on 09-21-2022 Monocytes (Bld) [#/Vol] 0.4 10*3/uL 0.0-0.8 [facility] Monocytes/100 WBC Auto (Bld) Ordered By: Jim Vega on 09-21-2022 Monocytes/100 WBC (Bld) 6.9 % . [facility] Neutrophils Auto (Bld) [#/Vo l]Ordered By: Jim Vega on 09-21-2022 Neutrophils (Bld) [#/Vol] 3.4 10*3/uL 1.8-7.7 [facility] Neutrophils/100 WBC Auto (Bl d)Ordered By: Jim Vega on 09-21-2022 Neutrophils/100 WBC (Bld) 63.8 % . [facility] Nitrite Test strip Ql (U)Ord ered By: Jim Vega on 09-21-2022 Nitrite Ql (U) Negative Negative [facility] No Panel InformationOrdered By: Jim Vega on 09-21-2022 D-Dimer Quantitative (PE/DVT) 205 ng/mL 0-243 [facility] Comment on above: The reference range for [...] conditions. Estimated GFR () > 60 mL/Min [facility] Comment on above: GFR estimated refere nce range: According to KDOQI guidelines, <60 ml/min/1.73m2 is sufficient to diagnose a patient with chronic kidney disease. Pharmacy Creatinine Clearance (Chem 96.49 [facility] Nucleated erythrocytes [Pres ence] in Blood by Automated countOrdered By: Jim Vega on 09-21-2022 Nucleated RBC Auto Ql (Bld) 0.4 /100{WBC} 0-0.5 [facility] Platelet mean volume Auto (B ld) [Entitic vol]Ordered By: Jim Vega on 09-21-2022 Platelet mean volume (Bld) [Entitic vol] 10.0 fL 6.3-10.7 [facility] Platelet poor plasma interna tional normalized ratio (INR) by coagulation assay (relatOrdered By: Jim Vega on 09-21-2022 INR Coag (PPP) [Relative time] 1.2 {INR} [facility] Comment on above: INR Therapeutic Rang e [...] 09-21-2022 Platelets (Bld) [#/Vol] 215 10*3/uL 150-450 [facility] Protein Auto test strip (U) [Mass/Vol]Ordered By: Jim Vega on 09-21-2022 Protein (U) [Mass/Vol] Negative Negative [facility] Protein [Mass/volume] in Ser um or PlasmaOrdered By: Jim Vega on 09-21-2022 Protein [Mass/Vol] 7.0 g/dL 6.1-7.9 [facility] RBC Auto (Bld) [#/Vol]Ordere d By: Jim Vega on 09-21-2022 RBC (Bld) [#/Vol] 4.54 10*6/uL 3.60-5.00 [facility] Serum or plasma alanine keene otransferase measurement without P-5'-P (enzymatic activiOrdered By: Jim Vega on 09-21-2022 ALT No additional P-5'-P [Catalytic activity/Vol] 11 U/L 10-60 [facility] Serum or plasma albumin/glob ulin mass ratioOrdered By: Jim Vega on 09-21-2022 Albumin/Globulin [Mass ratio] 1.1 {ratio} [facility] Serum or plasma alkaline jared sphatase measurement (enzymatic activity/volume)Ordered By: Jim Vega on 09-21-2022 ALP [Catalytic activity/Vol] 47 U/L 32-92 [facility] Serum or plasma anion gap de terminationOrdered By: Jim Vega on 09-21-2022 Anion gap [Moles/Vol] 10.0 mmol/L 6.0-15.0 [facility] Serum or plasma aspartate am inotransferase measurement (enzymatic activity/volume)Ordered By: Jim Vega on 09-21-2022 AST [Catalytic activity/Vol] 13 U/L 10-42 [facility] Serum or plasma calcium marychuy urement (mass/volume)Ordered By: Jim Vega on 09-21-2022 Calcium [Mass/Vol] 8.9 mg/dL 8.2-10.2 [facility] Serum or plasma chloride nemo surement (moles/volume)Ordered By: Jim Vega on 09-21-2022 Chloride [Moles/Vol] 105 mmol/L 95-114 [facility] Serum or plasma glucose marychuy urement (mass/volume)Ordered By: Jim Vega on 09-21-2022 Glucose [Mass/Vol] 114 mg/dL 70-100 [facility] Comment on above: ADA recommended refe rence rangeRandom Glucose Reference Range is dependent on time and content of last meal. Glucose of more than 200 mg/dL in a nonstressed, ambulatory subject supports the diagnosis of Diabetes Mellitus. Serum or plasma potassium me asurement (moles/volume)Ordered By: Jim Vega on 09-21-2022 Potassium [Moles/Vol] 3.5 mmol/L 3.5-5.1 [facility] Serum or plasma sodium measu rement (moles/volume)Ordered By: Jim Vega on 09-21-2022 Sodium [Moles/Vol] 134 mmol/L 136-146 [facility] Serum or plasma total biliru bin measurement (mass/volume)Ordered By: Jim Vega on 09-21-2022 Bilirubin [Mass/Vol] 0.5 mg/dL 0.3-1.2 [facility] Serum or plasma total carbon dioxide measurement (moles/volume)Ordered By: Jim Vega on 09-21-2022 CO2 [Moles/Vol] 22.5 mmol/L 22.0-30.0 [facility] Serum or plasma urea nitroge n measurement (mass/volume)Ordered By: Jim Vega on 09-21-2022 Urea nitrogen [Mass/Vol] 5 mg/dL 9-23 [facility] Specific gravity Auto test s trip (U) [Rel density]Ordered By: Jim Vega on 09-21-2022 Specific gravity (U) [Rel density] 1.004 1.001-1.03 0 [facility] Squamous epithelial cells de tection in urine sediment by light microscopyOrdered By: Jim Vega on 09-21-2022 Epithelial cells.squamous LM Ql (Urine sed) 0-1 [HPF] 0-2 [facility] TSH DL <= 0.005 mIU/L QnOrde red By: Jim Vega on 09-21-2022 TSH Qn 0.14 m[IU]/L 0.45-5.33 [facility] Thyroxine (T4) free [Mass/vo lume] in Serum or PlasmaOrdered By: Jim Vega on 09-21-2022 Free T4 [Mass/Vol] 1.30 ng/dL 0.61-1.12 [facility] Troponin I.cardiac [Mass/vol ume] in Serum or Plasma by High sensitivity methodOrdered By: Jim Vega on 09-21-2022 Troponin I.cardiac High sensitivity method [Mass/Vol] < 3 pg/mL 0-15 [facility] Urine bacteria detection by automated methodOrdered By: Jim Vega on 09-21-2022 Bacteria Auto Ql (U) None seen None Seen [facility] Urine clarity by refractomet ry automatedOrdered By: Jim Vega on 09-21-2022 Clarity Refractometry automated (U) Clear Clear [facility] Urine glucose measurement by automated test strip (mass/volume)Ordered By: Jim Vega on 09-21-2022 Glucose Auto test strip (U) [Mass/Vol] Normal mg/dL Normal [facility] Urine hemoglobin detection b y automated test stripOrdered By: Jim Vega on 09-21-2022 Hemoglobin Auto test strip Ql (U) Trace Negative [facility] Urine leukocyte esterase det ection by automated test stripOrdered By: Jim Vega on 09-21-2022 Leukocyte esterase Auto test strip Ql (U) Negative Negative [facility] Urobilinogen Auto test strip (U) [Mass/Vol]Ordered By: Jim Vega on 09-21-2022 Urobilinogen (U) [Mass/Vol] Normal mg/dL Normal [facility] WBC Auto (Bld) [#/Vol]Ordere d By: Jim Vega on 09-21-2022 WBC (Bld) [#/Vol] 5.4 10*3/uL 3.8-11.6 [facility] pH Auto test strip (U)Ordere d By: Jim Vega on 09-21-2022 pH (U) 7.0 [pH] 5.0-9.0 [facility] Anisocytosis LM Ql (Bld)Orde red By: Tejinder Peraza on 09-15-2022 Anisocytosis Ql (Bld) Slight [facility] Basophils Auto (Bld) [#/Vol] Ordered By: Tejinder Peraza on 09-15-2022 Basophils (Bld) [#/Vol] 0.0 10*3/uL 0.0-0.2 [facility] Basophils/100 WBC Auto (Bld) Ordered By: Tejinder Peraza on 09-15-2022 Basophils/100 WBC (Bld) 0.3 % . [facility] Eosinophils Auto (Bld) [#/Vo l]Ordered By: Tejinder Peraza on 09-15-2022 Eosinophils (Bld) [#/Vol] 0.1 10*3/uL 0.0-0.45 [facility] Eosinophils/100 WBC Auto (Bl d)Ordered By: Tejinder Peraza on 09-15-2022 Eosinophils/100 WBC (Bld) 1.2 % . [facility] Erythrocyte distribution wid th Auto (RBC) [Ratio]Ordered By: Tejinder Peraza on 09-15-2022 Erythrocyte distribution width (RBC) [Ratio] 15.2 % 11.9-15.3 [facility] Hematocrit Auto (Bld) [Volum e fraction]Ordered By: Tejinder Peraza on 09-15-2022 Hematocrit (Bld) [Volume fraction] 30.9 % 34.0-46.4 [facility] Hemoglobin [Mass/volume] in BloodOrdered By: Tejinder Peraza on 09-15-2022 Hemoglobin (Bld) [Mass/Vol] 9.6 g/dL 11.8-15.4 [facility] Hypochromia LM Ql (Bld)Order ed By: Tejinder Peraza on 09-15-2022 Hypochromia Ql (Bld) Slight [facility] Leukocytes [#/volume] correc delmer for nucleated erythrocytes in Blood by Automated counOrdered By: Tejinder Peraza on 09-15-2022 WBC corrected for nucl RBC Auto (Bld) [#/Vol] 7.5 10*3/uL 3.8-11.6 [facility] Lymphocytes Auto (Bld) [#/Vo l]Ordered By: Tejinder Peraza on 09-15-2022 Lymphocytes (Bld) [#/Vol] 1.7 10*3/uL 1.00-4.8 [facility] Lymphocytes/100 WBC Auto (Bl d)Ordered By: Tejinder Peraza on 09-15-2022 Lymphocytes/100 WBC (Bld) 22.2 % . [facility] MCH Auto (RBC) [Entitic mass ]Ordered By: Tejinder Peraza on 09-15-2022 MCH (RBC) [Entitic mass] 21.8 pg 24.7-34.3 [facility] MCHC Auto (RBC) [Mass/Vol]Or dered By: Tejinder Peraza on 09-15-2022 MCHC (RBC) [Mass/Vol] 31.1 g/dL 32.0-35.0 [facility] MCV Auto (RBC) [Entitic vol] Ordered By: Tejinder Peraza on 09-15-2022 MCV (RBC) [Entitic vol] 70.0 fL 80-100 [facility] Microcytes LM Ql (Bld)Ordere d By: Tejinder Peraza on 09-15-2022 Microcytes Ql (Bld) Slight [facility] Monocytes Auto (Bld) [#/Vol] Ordered By: Tejinder Peraza on 09-15-2022 Monocytes (Bld) [#/Vol] 0.4 10*3/uL 0.0-0.8 [facility] Monocytes/100 WBC Auto (Bld) Ordered By: Tejinder Peraza on 09-15-2022 Monocytes/100 WBC (Bld) 5.3 % . [facility] Neutrophils Auto (Bld) [#/Vo l]Ordered By: Tejinder Peraza on 09-15-2022 Neutrophils (Bld) [#/Vol] 5.3 10*3/uL 1.8-7.7 [facility] Neutrophils/100 WBC Auto (Bl d)Ordered By: Tejinder Peraza on 09-15-2022 Neutrophils/100 WBC (Bld) 71.0 % . [facility] No Panel InformationOrdered By: Tejinder Peraza on 09-15-2022 D-Dimer Quantitative (PE/DVT) 245 ng/mL 0-243 [facility] Comment on above: The reference range for [...] RBC Auto Ql (Bld) 0.1 /100{WBC} 0-0.5 [facility] Ovalocyte detectionOrdered B y: Tejinder Peraza on 09-15-2022 Ovalocytes LM Ql (Bld) Slight [facility] Platelet adequacy [Presence] in Blood by Light microscopyOrdered By: Tejinder Peraza on 09-15-2022 Platelets LM Ql (Bld) Normal Normal Fir [facility] Platelet mean volume Auto (B ld) [Entitic vol]Ordered By: Tejinder Peraza on 09-15-2022 Platelet mean volume (Bld) [Entitic vol] 9.8 fL 6.3-10.7 [facility] Platelet morphology finding [Identifier] in BloodOrdered By: Tejinder Peraza on 09-15-2022 Platelet morphology finding Nom (Bld) Normal Normal [facility] Platelets Auto (Bld) [#/Vol] Ordered By: Tejinder Soviak on 09-15-2022 Platelets (Bld) [#/Vol] 212 10*3/uL 150-450 [facility] Poikilocytosis [Presence] in Blood by Light microscopyOrdered By: Tejinder Soviak on 09-15-2022 Poikilocytosis LM Ql (Bld) Slight [facility] Polychromasia [Presence] in Blood by Light microscopyOrdered By: Tejinder Soviak on 09-15-2022 Polychromasia LM Ql (Bld) Slight [facility] RBC Auto (Bld) [#/Vol]Ordere d By: Tejinder Soviak on 09-15-2022 RBC (Bld) [#/Vol] 4.42 10*6/uL 3.60-5.00 [facility] RBC morphologyOrdered By: Dhaval p Somarii on 09-15-2022 RBC morphology finding Nom (Bld) N/A [facility] WBC Auto (Bld) [#/Vol]Ordere d By: Tejinder Soviak on 09-15-2022 WBC (Bld) [#/Vol] 7.5 10*3/uL 3.8-11.6 [facility] AFP (TUMOR MARKER)on 022 AFP, Serum, Tumor Marker <1.8 Normal 0.0-4.7 [facility] Comment on above: Result Comment: [employer] Electrochemiluminescence Immunoassay (ECLIA) . Values obtained with different assay methods or kits cannot be used interchangeably. Results cannot be interpreted as absolute evidence of the presence or absence of malignant disease. . This test is not interpretable in females. Performed By: #### U MICRO, PREGU, ERUR #### [facility] [address] [place] [address] Dr. Adam Mejía CA 125on 08-06-2022 Cancer Antigen (CA) 125 29.7 U/mL Normal 0.0-38.1 [facility] Comment on above: Result Comment: [employer] Electrochemiluminescence Immunoassay (ECLIA) . Values obtained with different assay methods or kits cannot be used interchangeably. Results cannot be interpreted as absolute evidence of the presence or absence of malignant disease. Performed By: #### U MICRO, PREGU, ERUR #### [facility] [address] [address] [address] Adam Mejía CEAon 08-06-2022 CEA 0.9 ng/mL Normal 0.0-4.7 [facility] Comment on above: Result Comment: Nons mokers <3.9 Smokers <5.6 . [employer] Electrochemiluminescence Immunoassay (ECLIA) . Values obtained with different assay methods or kits cannot be used interchangeably. Results cannot be interpreted as absolute evidence of the presence or absence of malignant disease. Performed By: #### U MICRO, PREGU, ERUR #### [facility] [address] [address] [address] Adam Mejía HCG QUANT TUMOR MARKERon HCG QNT TUMOR MARKER <1 Normal [facility] Comment on above: Result Comment: Fema [...] developed and its performance characteristics determined by [employer]. It has not been cleared or approved by the Food and Drug Administration for use as a tumor marker. . This test is not interpretable as a tumor marker in females. Performed By: #### H CGTMOR #### [facility] [address] [address] [address] Adam Mejía LDHon 08-05-2022 LDH 164 U/L Normal 81-234 [facility] Comment on above: Performed By: #### U MICRO, PREGU, ERUR #### [facility] [address] [address] [address] Adam Mejía US PELVIS TRANSVAGon 022 [...] by: KALPESH FOWLER Date: 2022-07-29 06:26 Normal [facility] PAP ACOG PANEL 2: 30 to 65on 07-10-2022 . . Normal [facility] Comment on above: Result Comment: Perf ormed at: WB Performed By: #### [id number] #### [facility] [address] [address] [address] Adam Mejía Age Gdln ACOG Testing 30-65 Normal [facility] Comment on above: Performed By: #### [id number] #### [facility] [address] [place], [place] [address] Dr. Adam Mejía DIAGNOSIS: Comment Normal [facility] Comment on above: Result Comment: NEGA TIVE FOR INTRAEPITHELIAL LESION OR MALIGNANCY. Performed at: WB Performed By: #### [id number] #### [facility] [address] [place] [address] Dr. Adam Mejía HPV Aptima Negative Normal Negative [facility] Comment on above: Result Comment: This nucleic acid amplification test detects fourteen high-risk HPV types (16,18,31,33,35,39,45,51,52,56,58,59,66,68) without differentiation. Performed at: =G Performed By: #### [id number] #### [facility] [address] [place] [address] Dr. Adam Mejía Methodology: Comment Normal [facility] Comment on above: Result Comment: This liquid based ThinPrep(R) pap test was screened with the use of an image guided system. Performed at: WB Performed By: #### [id number] #### [facility] [address] [place] [address] Dr. Adam Mejía Note: Comment Normal [facility] Comment on above: Result Comment: The Pap smear is a screening test designed to aid in the detection of premalignant and malignant conditions of the uterine cervix. It is not a diagnostic procedure and should not be used as the sole means of detecting cervical cancer. Both false-positive and false-negative reports do occur. . Performed at: WB Performed By: #### [id number] #### [facility] [address] [place] [address] Dr. Adam Mejía Performed by: Comment Normal [facility] Comment on above: Result Comment: Dat Choi Blind Eyeletter (ASCP) Performed at: WB Performed By: #### [id number] #### [facility] [address] [place] [address] Dr. Adam Mejía Specimen adequacy: Comment Normal [facility] Comment on above: Result Comment: Sati sfactory for evaluation. No endocervical component is identified. Performed at: WB Performed By: #### [id number] #### [facility] [address] [place] [address] Dr. Adam Mejía CHLAMYDIA/GONOCOCCUS HIRAM (SW AB/URINE/PAPon 07-05-2022 Chlamydia trachomatis, HIRAM Negative Normal Negative [facility] Comment on above: Performed By: #### C T/NGNA #### [facility] [address] [place] [address] Dr. Adam Mejía Neisseria gonorrhoeae, HIRAM Negative Normal Negative [facility] Comment on above: Performed By: #### C T/NGNA #### [facility] [address] [address] [address] Adam Mejía VAGINITIS/VAGINOSIS DNA PROB [place] 07-05-2022 [place] species Positive Abnormal Negative [facility] Comment on above: Performed By: #### V AGINT #### [facility] [address] [place] [address] Dr. Adam Mejía Gardnerella vaginalis Positive Abnormal Negative [facility] Comment on above: Performed By: #### V AGINT #### [facility] [address] [place] [address] Dr. Adam Mejía Trichomonas vaginalis Negative Normal Negative [facility] Comment on above: Performed By: #### V AGINT #### [facility] [address] [place] [address] Dr. Adam Mejía Activated partial thrombopla stin time (aPTT) in platelet poor plasma by coagulation aOrdered By: Frank Silva on 07-04-2022 aPTT Coag (PPP) [Time] 30.9 s 25.1-36.5 [facility] Albumin [Mass/volume] in Ser um or PlasmaOrdered By: Frank Silva on 07-04-2022 Albumin [Mass/Vol] 3.6 g/dL 3.2-5.5 [facility] Automated erythrocytes count in urine sediment (number/area)Ordered By: Frank Silva on 07-04-2022 RBC Auto (Urine sed) [#/Area] 3-4 [HPF] 0-4 [facility] Automated leukocytes count i n urine sediment (number/area)Ordered By: Frank Silva on 07-04-2022 WBC Auto (Urine sed) [#/Area] 0-1 [HPF] 0-4 [facility] Basophils Auto (Bld) [#/Vol] Ordered By: Frank Silva on 07-04-2022 Basophils (Bld) [#/Vol] 0.0 10*3/uL 0.0-0.2 [facility] Basophils/100 WBC Auto (Bld) Ordered By: Frank Silva on 07-04-2022 Basophils/100 WBC (Bld) 0.4 % . [facility] Bilirubin Test strip Ql (U)O rdered By: Frank Sivla on 07-04-2022 Bilirubin Ql (U) Negative Negative [facility] Color Auto (U)Ordered By: Godfrey Silva on 07-04-2022 Color (U) Yellow Yellow [facility] Creatinine and Glomerular fi ltration rate.predicted panel (S/P/Bld)Ordered By: Frank Silva on 07-04-2022 Creatinine [Mass/Vol] 0.80 mg/dL 0.44-1.03 [facility] Direct bilirubin measurement Ordered By: Frank Silva on 07-04-2022 Bilirubin.direct [Mass/Vol] mg/dL 0.0-0.4 [facility] Eosinophils Auto (Bld) [#/Vo l]Ordered By: Frank Silva on 07-04-2022 Eosinophils (Bld) [#/Vol] 0.1 10*3/uL 0.0-0.45 [facility] Eosinophils/100 WBC Auto (Bl d)Ordered By: Frank Silva on 07-04-2022 Eosinophils/100 WBC (Bld) 1.2 % . [facility] Erythrocyte distribution wid th Auto (RBC) [Ratio]Ordered By: Frank Silva on 07-04-2022 Erythrocyte distribution width (RBC) [Ratio] 14.9 % 11.9-15.3 [facility] Estimated glomerular filtrat ion rate (GFR) non- AmericanOrdered By: Frank Silva on 07-04-2022 GFR/1.73 sq M.predicted among non-blacks MDRD (S/P/Bld) [Vol rate/Area] > 60 mL/Min [facility] Globulin Calc (S) [Mass/Vol] Ordered By: Frank Silva on 07-04-2022 Globulin (S) [Mass/Vol] 3.3 g/dL [facility] HCG ( test) IA.rapi d Ql (U)Ordered By: Frank Silva on 07-04-2022 HCG ( test) Ql (U) Negative [facility] Hematocrit Auto (Bld) [Volum e fraction]Ordered By: Frank Silva on 07-04-2022 Hematocrit (Bld) [Volume fraction] 32.0 % 34.0-46.4 [facility] Hemoglobin [Mass/volume] in BloodOrdered By: Frank Silva on 07-04-2022 Hemoglobin (Bld) [Mass/Vol] 9.7 g/dL 11.8-15.4 [facility] Ketones Auto test strip (U) [Mass/Vol]Ordered By: Frank Silva on 07-04-2022 Ketones (U) [Mass/Vol] Trace Negative [facility] Laboratory - Chemistry and C hemistry - challengeOrdered By: Frank Silva on 07-04-2022 Lipase [Catalytic activity/Vol] 43.0 U/L 22-51 [facility] Laboratory - CoagulationOrde red By: Frank Silva on 07-04-2022 PT Coag (PPP) [Time] 13.3 s 9.0-12.9 [facility] - Hematology and Cell countsOrdered By: Frank Silva on 07-04-2022 Nucleated RBC/100 WBC (Bld) [Ratio] 0.1 % 0-0.5 [facility] - UrinalysisOrder ed By: Frank iSlva on 07-04-2022 Hyaline casts LM Ql (Urine sed) 0-8 [LPF] 0-8 [facility] Leukocytes [#/volume] in Blo od by Automated countOrdered By: Frank Silva on 07-04-2022 WBC (Bld) [#/Vol] 8.7 10*3/uL 4.5-11.0 [facility] Lymphocytes Auto (Bld) [#/Vo l]Ordered By: Frank Silva on 07-04-2022 Lymphocytes (Bld) [#/Vol] 1.2 10*3/uL 1.00-4.8 [facility] Lymphocytes/100 WBC Auto (Bl d)Ordered By: Frank Silva on 07-04-2022 Lymphocytes/100 WBC (Bld) 14.2 % . [facility] MCH Auto (RBC) [Entitic mass ]Ordered By: Frank Silva on 07-04-2022 MCH (RBC) [Entitic mass] 21.4 pg 24.7-34.3 [facility] MCHC Auto (RBC) [Mass/Vol]Or dered By: Frank Silva on 07-04-2022 MCHC (RBC) [Mass/Vol] 30.4 g/dL 32.0-35.0 [facility] MCV Auto (RBC) [Entitic vol] Ordered By: Frank Silva on 07-04-2022 MCV (RBC) [Entitic vol] 70.4 fL 80-100 [facility] Monocytes Auto (Bld) [#/Vol] Ordered By: Frank Silva on 07-04-2022 Monocytes (Bld) [#/Vol] 0.4 10*3/uL 0.0-0.8 [facility] Monocytes/100 WBC Auto (Bld) Ordered By: Frank Silva on 07-04-2022 Monocytes/100 WBC (Bld) 5.0 % . [facility] Neutrophils Auto (Bld) [#/Vo l]Ordered By: Frank Silva on 07-04-2022 Neutrophils (Bld) [#/Vol] 6.9 10*3/uL 1.8-7.7 [facility] Neutrophils/100 WBC Auto (Bl d)Ordered By: Frank Silva on 07-04-2022 Neutrophils/100 WBC (Bld) 79.2 % . [facility] Nitrite Test strip Ql (U)Ord ered By: Frank Silva on 07-04-2022 Nitrite Ql (U) Negative Negative [facility] No Panel InformationOrdered By: Frank Silva on 07-04-2022 Estimated GFR () > 60 mL/Min [facility] Comment on above: GFR estimated refere nce range: According to KDOQI guidelines, <60 ml/min/1.73m2 is sufficient to diagnose a patient with chronic kidney disease. Pharmacy Creatinine Clearance (Chem 98.82 [facility] Platelet mean volume Auto (B ld) [Entitic vol]Ordered By: Frank Silva on 07-04-2022 Platelet mean volume (Bld) [Entitic vol] 9.5 fL 6.3-10.7 [facility] Platelet poor plasma interna tional normalized ratio (INR) by coagulation assay (relatOrdered By: Frank Silva on 07-04-2022 INR Coag (PPP) [Relative time] 1.2 {INR} [facility] Comment on above: INR Therapeutic Rang e [...] 07-04-2022 Platelets (Bld) [#/Vol] 258 10*3/uL 150-450 [facility] Protein Auto test strip (U) [Mass/Vol]Ordered By: Frank Silva on 07-04-2022 Protein (U) [Mass/Vol] Negative Negative [facility] Protein [Mass/volume] in Ser um or PlasmaOrdered By: Frank Silva on 07-04-2022 Protein [Mass/Vol] 6.9 g/dL 6.1-7.9 [facility] RBC Auto (Bld) [#/Vol]Ordere d By: Frank Silva on 07-04-2022 RBC (Bld) [#/Vol] 4.54 10*6/uL 3.60-5.00 [facility] Serum or plasma alanine keene otransferase measurement without P-5'-P (enzymatic activiOrdered By: Frank Silva on 07-04-2022 ALT No additional P-5'-P [Catalytic activity/Vol] 15 U/L 10-60 [facility] Serum or plasma albumin/glob ulin mass ratioOrdered By: Frank Silva on 07-04-2022 Albumin/Globulin [Mass ratio] 1.1 {ratio} [facility] Serum or plasma alkaline jared sphatase measurement (enzymatic activity/volume)Ordered By: Frank Silva on 07-04-2022 ALP [Catalytic activity/Vol] 50 U/L 32-92 [facility] Serum or plasma anion gap de terminationOrdered By: rFank Silva on 07-04-2022 Anion gap [Moles/Vol] 11.7 mmol/L 6.0-15.0 [facility] Serum or plasma aspartate am inotransferase measurement (enzymatic activity/volume)Ordered By: Frank Silva on 07-04-2022 AST [Catalytic activity/Vol] 14 U/L 10-42 [facility] Serum or plasma calcium marychuy urement (mass/volume)Ordered By: Frank Silva on 07-04-2022 Calcium [Mass/Vol] 8.9 mg/dL 8.2-10.2 [facility] Serum or plasma chloride nemo surement (moles/volume)Ordered By: Frank Silva on 07-04-2022 Chloride [Moles/Vol] 105 mmol/L 95-114 [facility] Serum or plasma glucose marychuy urement (mass/volume)Ordered By: Frank Silva on 07-04-2022 Glucose [Mass/Vol] 97 mg/dL 70-100 [facility] Comment on above: ADA recommended refe rence rangeRandom Glucose Reference Range is dependent on time and content of last meal. Glucose of more than 200 mg/dL in a nonstressed, ambulatory subject supports the diagnosis of Diabetes Mellitus. Serum or plasma non-glucuron idated bilirubin measurement (mass/volume)Ordered By: Frank Silva on 07-04-2022 Bilirubin.indirect [Mass/Vol] TNP [facility] Comment on above: Test not performed Serum or plasma potassium me asurement (moles/volume)Ordered By: Frank Silva on 07-04-2022 Potassium [Moles/Vol] 3.7 mmol/L 3.5-5.1 [facility] Serum or plasma sodium measu rement (moles/volume)Ordered By: Frank Silva on 07-04-2022 Sodium [Moles/Vol] 136 mmol/L 136-146 [facility] Serum or plasma total biliru bin measurement (mass/volume)Ordered By: Frank Silva 07-04-2022 Bilirubin [Mass/Vol] 0.5 mg/dL 0.3-1.2 [facility] Serum or plasma total carbon dioxide measurement (moles/volume)Ordered By: Frank Silva on 07-04-2022 CO2 [Moles/Vol] 23.0 mmol/L 22.0-30.0 [facility] Serum or plasma urea nitroge n measurement (mass/volume)Ordered By: Frank Silva on 07-04-2022 Urea nitrogen [Mass/Vol] 6 mg/dL 9-23 [facility] Specific gravity Auto test s trip (U) [Rel density]Ordered By: Frank Silva on 07-04-2022 Specific gravity (U) [Rel density] 1.010 1.001-1.03 0 [facility] Squamous epithelial cells de tection in urine sediment by light microscopyOrdered By: Frank Silva on 07-04-2022 Epithelial cells.squamous LM Ql (Urine sed) 0-1 [HPF] 0-2 [facility] Urine bacteria detection by automated methodOrdered By: Frank Silva on 07-04-2022 Bacteria Auto Ql (U) None seen None Seen [facility] Urine clarity by refractomet ry automatedOrdered By: Frank Silva on 07-04-2022 Clarity Refractometry automated (U) Clear Clear [facility] Urine glucose measurement by automated test strip (mass/volume)Ordered By: Frank Silva on 07-04-2022 Glucose Auto test strip (U) [Mass/Vol] Normal mg/dL Normal [facility] Urine hemoglobin detection b y automated test stripOrdered By: Frank Silva on 07-04-2022 Hemoglobin Auto test strip Ql (U) Trace Negative [facility] Urine leukocyte esterase det ection by automated test stripOrdered By: Frank Silva on 07-04-2022 Leukocyte esterase Auto test strip Ql (U) 1+ Negative [facility] Urobilinogen Auto test strip (U) [Mass/Vol]Ordered By: Frank Silva on 07-04-2022 Urobilinogen (U) [Mass/Vol] Normal mg/dL Normal [facility] pH Auto test strip (U)Ordere d By: Frank Silva on 07-04-2022 pH (U) 6.5 [pH] 5.0-9.0 [facility] Activated partial thrombopla stin time (aPTT) in platelet poor plasma by coagulation aOrdered By: Marvin Serrano on 06-01-2022 aPTT Coag (PPP) [Time] 30.4 s 25.1-36.5 [facility] Basophils Auto (Bld) [#/Vol] Ordered By: Marvin Serrano on 06-01-2022 Basophils (Bld) [#/Vol] 0.1 10*3/uL 0.0-0.2 [facility] Basophils/100 WBC Auto (Bld) Ordered By: Marvin Serrano on 06-01-2022 Basophils/100 WBC (Bld) 1.1 % . [facility] Bilirubin Test strip Ql (U)O rdered By: Marvin Serrano on 06-01-2022 Bilirubin Ql (U) Negative Negative [facility] Blood hemoglobin measurement (mass/volume)Ordered By: Marvin Serrano on 06-01-2022 Hemoglobin (Bld) [Mass/Vol] 10.1 g/dL 11.8-15.4 [facility] Blood leukocytes automated c ount (number/volume)Ordered By: Marvin Serrano on 06-01-2022 WBC (Bld) [#/Vol] 7.6 10*3/uL 4.5-11.0 [facility] Body fluid albumin measureme nt (mass/volume)Ordered By: Marvin Serrano on 06-01-2022 Albumin (Body fld) [Mass/Vol] 3.7 g/dL 3.2-5.5 [facility] Color Auto (U)Ordered By: Dane Serrano on 06-01-2022 Color (U) Yellow Yellow [facility] Creatinine and Glomerular fi ltration rate.predicted panel (S/P/Bld)Ordered By: Marvin Serrano on 06-01-2022 Creatinine [Mass/Vol] 0.82 mg/dL 0.44-1.03 [facility] Eosinophils Auto (Bld) [#/Vo l]Ordered By: Marvin Serrano on 06-01-2022 Eosinophils (Bld) [#/Vol] 0.2 10*3/uL 0.0-0.45 [facility] Eosinophils/100 WBC Auto (Bl d)Ordered By: Marvin Serrano on 06-01-2022 Eosinophils/100 WBC (Bld) 2.4 % . [facility] Erythrocyte distribution wid th Auto (RBC) [Ratio]Ordered By: Marvin Serrano on 06-01-2022 Erythrocyte distribution width (RBC) [Ratio] 14.3 % 11.9-15.3 [facility] Estimated glomerular filtrat ion rate (GFR) non- AmericanOrdered By: Marvin Serrano on 06-01-2022 GFR/1.73 sq M.predicted among non-blacks MDRD (S/P/Bld) [Vol rate/Area] > 60 mL/Min [facility] Globulin Calc (S) [Mass/Vol] Ordered By: Marvin Serrano on 06-01-2022 Globulin (S) [Mass/Vol] 3.4 g/dL [facility] HCG ( test) IA.rapi d Ql (U)Ordered By: Marvin Serrano on 06-01-2022 HCG ( test) Ql (U) Negative [facility] Hematocrit Auto (Bld) [Volum e fraction]Ordered By: Marvin Serrano on 06-01-2022 Hematocrit (Bld) [Volume fraction] 32.2 % 34.0-46.4 [facility] Ketones Auto test strip (U) [Mass/Vol]Ordered By: Marvin Serrano on 06-01-2022 Ketones (U) [Mass/Vol] Negative Negative [facility] Laboratory - CoagulationOrde red By: Marvin Serrano on 06-01-2022 PT Coag (PPP) [Time] 12.4 s 9.0-12.9 [facility] Laboratory - Hematology and Cell countsOrdered By: Marvin Serrano on 06-01-2022 Nucleated RBC/100 WBC (Bld) [Ratio] 0.1 % 0-0.5 [facility] Lymphocytes Auto (Bld) [#/Vo l]Ordered By: Marvin Serrano on 06-01-2022 Lymphocytes (Bld) [#/Vol] 2.7 10*3/uL 1.00-4.8 [facility] Lymphocytes/100 WBC Auto (Bl d)Ordered By: Marvin Serrano on 06-01-2022 Lymphocytes/100 WBC (Bld) 35.8 % . [facility] MCH Auto (RBC) [Entitic mass ]Ordered By: Marvin Serrano on 06-01-2022 MCH (RBC) [Entitic mass] 22.0 pg 24.7-34.3 [facility] MCHC Auto (RBC) [Mass/Vol]Or dered By: Marvin Serrano on 06-01-2022 MCHC (RBC) [Mass/Vol] 31.3 g/dL 32.0-35.0 [facility] MCV Auto (RBC) [Entitic vol] Ordered By: Marvin Serrano on 06-01-2022 MCV (RBC) [Entitic vol] 70.4 fL 80-100 [facility] Monocytes Auto (Bld) [#/Vol] Ordered By: Marvin Serrano on 06-01-2022 Monocytes (Bld) [#/Vol] 0.5 10*3/uL 0.0-0.8 [facility] Monocytes/100 WBC Auto (Bld) Ordered By: Marvin Serrano on 06-01-2022 Monocytes/100 WBC (Bld) 7.1 % . [facility] Neutrophils Auto (Bld) [#/Vo l]Ordered By: Marvin Serrano on 06-01-2022 Neutrophils (Bld) [#/Vol] 4.1 10*3/uL 1.8-7.7 [facility] Neutrophils/100 WBC Auto (Bl d)Ordered By: Marvin Serrano on 06-01-2022 Neutrophils/100 WBC (Bld) 53.6 % . [facility] Nitrite Test strip Ql (U)Ord ered By: Marvin Serrano on 06-01-2022 Nitrite Ql (U) Negative Negative [facility] No Panel InformationOrdered By: Marvin Serrano on 06-01-2022 Estimated GFR () > 60 mL/Min [facility] Comment on above: GFR estimated refere nce range: According to KDOQI guidelines, <60 ml/min/1.73m2 is sufficient to diagnose a patient with chronic kidney disease. Pharmacy Creatinine Clearance (Chem 97.22 [facility] Platelet mean volume Auto (B ld) [Entitic vol]Ordered By: Marvin Serrano on 06-01-2022 Platelet mean volume (Bld) [Entitic vol] 9.9 fL 6.3-10.7 [facility] Platelet poor plasma interna tional normalized ratio (INR) by coagulation assay (relatOrdered By: Marvin Serrano on 06-01-2022 INR Coag (PPP) [Relative time] 1.1 {INR} [facility] Comment on above: INR Therapeutic Rang e [...] 06-01-2022 Platelets (Bld) [#/Vol] 218 10*3/uL 150-450 [facility] Protein Auto test strip (U) [Mass/Vol]Ordered By: Marvin Serrano on 06-01-2022 Protein (U) [Mass/Vol] Negative Negative [facility] Protein [Mass/volume] in Ser um or PlasmaOrdered By: Marvin Serrano on 06-01-2022 Protein [Mass/Vol] 7.1 g/dL 6.1-7.9 [facility] RBC Auto (Bld) [#/Vol]Ordere d By: Marvin Serrano on 06-01-2022 RBC (Bld) [#/Vol] 4.57 10*6/uL 3.60-5.00 [facility] Serum or plasma alanine keene otransferase measurement without P-5'-P (enzymatic activiOrdered By: Marvin Serrano on 06-01-2022 ALT No additional P-5'-P [Catalytic activity/Vol] 12 U/L 10-60 [facility] Serum or plasma albumin/glob ulin mass ratioOrdered By: Marvin Serrano on 06-01-2022 Albumin/Globulin [Mass ratio] 1.1 {ratio} [facility] Serum or plasma alkaline jared sphatase measurement (enzymatic activity/volume)Ordered By: Marvin Serrano on 06-01-2022 ALP [Catalytic activity/Vol] 46 U/L 32-92 [facility] Serum or plasma anion gap de terminationOrdered By: Marvin Serrano on 06-01-2022 Anion gap [Moles/Vol] 15.3 mmol/L 6.0-15.0 [facility] Serum or plasma aspartate am inotransferase measurement (enzymatic activity/volume)Ordered By: Marvin Serrano on 06-01-2022 AST [Catalytic activity/Vol] 13 U/L 10-42 [facility] Serum or plasma calcium marychuy urement (mass/volume)Ordered By: Mavrin Serrano on 06-01-2022 Calcium [Mass/Vol] 9.1 mg/dL 8.2-10.2 [facility] Serum or plasma chloride nemo surement (moles/volume)Ordered By: Marvin Serrano on 06-01-2022 Chloride [Moles/Vol] 103 mmol/L 95-114 [facility] Serum or plasma glucose marychuy urement (mass/volume)Ordered By: Marvin Serrano on 06-01-2022 Glucose [Mass/Vol] 113 mg/dL 70-100 [facility] Comment on above: ADA recommended [...] on 06-01-2022 Potassium [Moles/Vol] 3.0 mmol/L 3.5-5.1 [facility] Serum or plasma sodium measu rement (moles/volume)Ordered By: Marvin Serrano on 06-01-2022 Sodium [Moles/Vol] 137 mmol/L 136-146 [facility] Serum or plasma total biliru bin measurement (mass/volume)Ordered By: Marvin Serrano on 06-01-2022 Bilirubin [Mass/Vol] 0.4 mg/dL 0.3-1.2 [facility] Serum or plasma total carbon dioxide measurement (moles/volume)Ordered By: Marvin Serrano on 06-01-2022 CO2 [Moles/Vol] 21.7 mmol/L 22.0-30.0 [facility] Serum or plasma urea nitroge n measurement (mass/volume)Ordered By: Marvin Serrano on 06-01-2022 Urea nitrogen [Mass/Vol] 11 mg/dL 9- [facility] Specific gravity Auto test s trip (U) [Rel density]Ordered By: Marvin Serrano on 06-01-2022 Specific gravity (U) [Rel density] 1.003 1.001-1.03 0 [facility] Urine clarity by refractomet ry automatedOrdered By: Marvin Serrano on 06-01-2022 Clarity Refractometry automated (U) Clear Clear [facility] Urine glucose measurement by automated test strip (mass/volume)Ordered By: Marvin Serrano on 06-01-2022 Glucose Auto test strip (U) [Mass/Vol] Normal mg/dL Normal [facility] Urine hemoglobin detection b y automated test stripOrdered By: Marvin Serrano on 06-01-2022 Hemoglobin Auto test strip Ql (U) Negative Negative [facility] Urine leukocyte esterase det ection by automated test stripOrdered By: Marvin Serrano on 06-01-2022 Leukocyte esterase Auto test strip Ql (U) Negative Negative [facility] Urobilinogen Auto test strip (U) [Mass/Vol]Ordered By: Marvin Serrano on 06-01-2022 Urobilinogen (U) [Mass/Vol] Normal mg/dL Normal [facility] pH Auto test strip (U)Ordere d By: Marvin Serrano on 06-01-2022 pH (U) 7.0 [pH] 5.0-9.0 [facility] Office Visit (Oncology Surge ry)on 04-21-2022 Follow-up [...] need for her to return to her [employer] Dr. Pendleton for discussion of [...] visit. Active Problems Problems Abdominal wall mass (579.30) (R22.2) Allergies Medication albuterol Recorded By: Kim Isaac; 03/24/2022 11:45:28 AM Current Meds Medication NameInstructionReason Ondansetron 8 MG Oral Tablet DisintegratingTAKE 1 TABLET Every 8 hoursAbdominal wall (more content not included)... Normal Upstream CT ABD/PELV W CONon 04-19-20 CT ABD/PELV [...] Lenny TANNER Date: 2022-04-18 23:01 Normal [facility] ER URINE PROFILEon 2 Bilirubin Ql (U) Negative Normal NEGATIVE [facility] Comment on above: Performed By: #### U MICRO, PREGU, ERUR #### [facility] [address] [address] [address] Adam Mejía Clarity (U) CLEAR Normal CLEAR [facility] Comment on above: Performed By: #### U MICRO, PREGU, ERUR #### [facility] [address] [address] [address] Adam Mejía Color (U) YELLOW Normal YELLOW [facility] Comment on above: Performed By: #### U MICRO, PREGU, ERUR #### [facility] [address] [address] [address] Adam CLEMENTS A micrscopic examina tion will be performed if indicated. Normal [facility] Comment on above: Performed By: #### U MICRO, PREGU, ERUR #### [facility] [address] [address] [address] Adam Mejía Glucose Ql (U) Negative Normal NEGATIVE [facility] Comment on above: Performed By: #### U MICRO, PREGU, ERUR #### [facility] [address] [address] [address] Adam Mejía Hemoglobin Ql (U) SMALL Abnormal NEGATIVE [facility] Comment on above: Performed By: #### U MICRO, PREGU, ERUR #### [facility] [address] [place] [address] Dr. Adam Mejía Ketones Ql (U) >=80 Abnormal NEGATIVE [facility] Comment on above: Performed By: #### U MICRO, PREGU, ERUR #### [facility] [address] [address] [address] Adam Mejía LEUKOCYTES Negative Normal NEGATIVE [facility] Comment on above: Performed By: #### U MICRO, PREGU, ERUR #### [facility] [address] [address] [address] Adam Mejía Nitrite Ql (U) Negative Normal NEGATIVE [facility] Comment on above: Performed By: #### U MICRO, PREGU, ERUR #### [facility] [address] [address] [address] Adam Mejía pH (U) 6.5 [pH] Normal 5-9 [facility] Comment on above: Performed By: #### U MICRO, PREGU, ERUR #### [facility] [address] [address] [address] Adam Mejía SPEC GRAVITY 1.015 Normal 1.005-<=1. 025 [facility] Comment on above: Performed By: #### U MICRO, PREGU, ERUR #### [facility] [address] [address] [address] Adam Mejía UA PROTEIN Negative Normal NEGATIVE/ TRACE [facility] Comment on above: Performed By: #### U MICRO, PREGU, ERUR #### [facility] [address] [address] [address] Adam Mejía UR MICRO IND INDICATED Normal [facility] Comment on above: Performed By: #### U MICRO, PREGU, ERUR #### [facility] [address] [address] [address] Adam Mejía Urobilinogen Qn (U) 0.2 {Rbinda'U}/dL Normal 0.2 - 1. 0 [facility] Comment on above: Performed By: #### U MICRO, PREGU, ERUR #### [facility] [address] [place] [address] Dr. Adam Mejía URon 04-18-2022 , QUAL Negative Normal NEGATIVE [facility] Comment on above: Performed By: #### U MICRO, PREGU, ERUR #### [facility] [address] [place] [address] Dr. Adam Mejía URINE MICROSCOPIC ONLYon BACTERIA TRACE Abnormal NONE SEEN [facility] Comment on above: Performed By: #### U MICRO, PREGU, ERUR #### [facility] [address] [place] [address] Dr. Adam Mejía Bacteria identified Cx Nom (U) NOT INDICATED Normal [facility] Comment on above: Performed By: #### U MICRO, PREGU, ERUR #### [facility] [address] [address] [address] Adam Mejía CAST NONE SEEN Normal NONE SEEN [facility] Comment on above: Performed By: #### U MICRO, PREGU, ERUR #### [facility] [address] [address] [address] Adam Mejía Crystals LM Nom (Urine sed) NONE SEEN Normal NONE SEEN [facility] Comment on above: Performed By: #### U MICRO, PREGU, ERUR #### [facility] [address] [place] [address] Dr. Adam Mejía Epithelial cells LM Ql (Urine sed) FEW Abnormal NONE SEEN /RARE [facility] Comment on above: Performed By: #### U MICRO, PREGU, ERUR #### [facility] [address] [address] [address] Adam Mejía MUCOUS NONE SEEN Normal NONE SEEN [facility] Comment on above: Performed By: #### U MICRO, PREGU, ERUR #### [facility] [address] [address] [address] Adam Mejía RBC 0-2 Normal 0-2 [facility] Comment on above: Performed By: #### U MICRO, PREGU, ERUR #### [facility] [address] [address] [address] Adam Mejía WBC 0-2 Abnormal NONE SEEN [facility] Comment on above: Performed By: #### U MICRO, PREGU, ERUR #### [facility] [address] [address] [address] Adam Mejía Body fluid albumin measureme nt (mass/volume)Ordered By: Yudelka Lopez on 04-14-2022 Albumin (Body fld) [Mass/Vol] 3.9 g/dL 3.2-5.5 [facility] Creatinine and Glomerular fi ltration rate.predicted panel (S/P/Bld)Ordered By: Yudelka Lopez on 04-14-2022 Creatinine [Mass/Vol] 0.77 mg/dL 0.44-1.03 [facility] Estimated glomerular filtrat ion rate (GFR) non- AmericanOrdered By: Yudelka Lopez on 04-14-2022 GFR/1.73 sq M.predicted among non-blacks MDRD (S/P/Bld) [Vol rate/Area] > 60 mL/Min [facility] Globulin Calc (S) [Mass/Vol] Ordered By: Yudelka Lopez on 04-14-2022 Globulin (S) [Mass/Vol] 3.0 g/dL [facility] No Panel InformationOrdered By: Yudelka Lopez on 04-14-2022 Estimated GFR () > 60 mL/Min [facility] Comment on above: GFR estimated refere nce range: According to KDOQI guidelines, <60 ml/min/1.73m2 is sufficient to diagnose a patient with chronic kidney disease. Pharmacy Creatinine Clearance (Chem N/A [facility] Protein [Mass/volume] in Ser um or PlasmaOrdered By: Yudelka Lopez on 04-14-2022 Protein [Mass/Vol] 6.9 g/dL 6.1-7.9 [facility] Serum or plasma alanine keene otransferase measurement without P-5'-P (enzymatic activiOrdered By: Yudelka Lopez on 04-14-2022 ALT No additional P-5'-P [Catalytic activity/Vol] 13 U/L 10-60 [facility] Serum or plasma albumin/glob ulin mass ratioOrdered By: Yudelka Lopez on 04-14-2022 Albumin/Globulin [Mass ratio] 1.3 {ratio} [facility] Serum or plasma alkaline jared sphatase measurement (enzymatic activity/volume)Ordered By: Yudelka Lopez on 04-14-2022 ALP [Catalytic activity/Vol] 44 U/L 32-92 [facility] Serum or plasma aspartate am inotransferase measurement (enzymatic activity/volume)Ordered By: Yudelka Lopez on 04-14-2022 AST [Catalytic activity/Vol] 14 U/L 10-42 [facility] Serum or plasma calcium marychuy urement (mass/volume)Ordered By: Yudelka Lopez on 04-14-2022 Calcium [Mass/Vol] 9.5 mg/dL 8.2-10.2 [facility] Serum or plasma chloride nemo surement (moles/volume)Ordered By: Yudelka Lopez on 04-14-2022 Chloride [Moles/Vol] 104 mmol/L 95-114 [facility] Serum or plasma glucose marychuy urement (mass/volume)Ordered By: Yudelka Lopez on 04-14-2022 Glucose [Mass/Vol] 85 mg/dL 70-100 [facility] Comment on above: ADA recommended [...] on 04-14-2022 Potassium [Moles/Vol] 4.2 mmol/L 3.5-5.1 [facility] Serum or plasma sodium measu rement (moles/volume)Ordered By: Yudelka Lopez on 04-14-2022 Sodium [Moles/Vol] 136 mmol/L 136-146 [facility] Serum or plasma total biliru bin measurement (mass/volume)Ordered By: Yudelka Lopez on 04-14-2022 Bilirubin [Mass/Vol] 0.2 mg/dL 0.3-1.2 [facility] Serum or plasma total carbon dioxide measurement (moles/volume)Ordered By: Yudelka Lopez on 04-14-2022 CO2 [Moles/Vol] 24.5 mmol/L 22.0-30.0 [facility] Serum or plasma urea nitroge n measurement (mass/volume)Ordered By: Yudelka Lopez on 04-14-2022 Urea nitrogen [Mass/Vol] 6 mg/dL 9- [facility] AMYLASEon 04-11-2022 Amylase [Catalytic activity/Vol] 54 U/L Normal 25-115 [facility] Comment on above: Performed By: #### A MY, CMP, LIPA #### [facility] [address] [place] [address] Dr. Adam Mejía CBC AUTO DIFFon 04-11-2022 BASO # 0.0 103/ul Normal 0.0-0.1 [facility] Comment on above: Performed By: #### C BC #### [facility] [address] [place] [address] Dr. Adam Mejía Basophils/100 WBC (Bld) 0.2 % Normal 0.2-2.0 [facility] Comment on above: Performed By: #### C BC #### [facility] [address] [place] [address] Dr. Adam Mejía EO # 0.1 103/ul Normal 0.0-0.7 [facility] Comment on above: Performed By: #### C BC #### [facility] [address] [place] [address] Dr. Adam Mejía Eosinophils/100 WBC (Bld) 0.6 % Critically low 0.9-7.0 [facility] Comment on above: Performed By: #### C BC #### [facility] [address] [place] [address] Dr. Adam Mejía Erythrocyte distribution width (RBC) [Ratio] 13.9 % Normal 11.0-15.0 [facility] Comment on above: Performed By: #### C BC #### [facility] [address] [place] [address] Dr. Adam Mejía Hematocrit (Bld) [Volume fraction] 31.4 % Critically low 36.0-48.0 [facility] Comment on above: Performed By: #### C BC #### [facility] [address] [place] [address] Dr. Adam Mejía Hemoglobin (Bld) [Mass/Vol] 9.8 g/dL Critically low 12.0-16.0 [facility] Comment on above: Performed By: #### C BC #### [facility] [address] [place] [address] Dr. Adam Mejía IG # 0.03 10e3/ul Normal 0.00-0.03 [facility] Comment on above: Performed By: #### C BC #### [facility] [address] [place] [address] Dr. Adam Mejía IG % 0.3 % Normal 0.0-0.5 [facility] Comment on above: Performed By: #### C BC #### [facility] [address] [place] [address] Dr. Adam Mejía LYMPH # 1.1 103/ul Critically low 1.2-3.8 [facility] Comment on above: Performed By: #### C BC #### [facility] [address] [place] [address] Dr. Adam Mejía Lymphocytes/100 WBC (Bld) 9.3 % Critically low 20.5-60.0 [facility] Comment on above: Performed By: #### C BC #### [facility] [address] [place] [address] Dr. Adam Mejía MANUAL DIFF REQ NO Normal [facility] Comment on above: Performed By: #### C BC #### [facility] [address] [place] [address] Dr. Adam Mejía MCH (RBC) [Entitic mass] 22.5 pg Critically low 26.7-34.0 [facility] Comment on above: Performed By: #### C BC #### [facility] [address] [place] [address] Dr. Adam Mejía MCHC (RBC) [Mass/Vol] 31.2 g/dL Normal 29.9-35.2 [facility] Comment on above: Performed By: #### C BC #### [facility] [address] [place] [address] Dr. Adam Mejía MCV (RBC) [Entitic vol] 72.0 fL Critically low 81.0-99.0 [facility] Comment on above: Performed By: #### C BC #### [facility] [address] [place] [address] Dr. Adam Mejía MONO # 0.6 103/ul Normal 0.3-0.8 [facility] Comment on above: Performed By: #### C BC #### [facility] [address] [place] [address] Dr. Adam Mejía Monocytes/100 WBC (Bld) 4.6 % Normal 1.7-12.0 [facility] Comment on above: Performed By: #### C BC #### [facility] [address] [place] [address] Dr. Adam Mejía NEUT # 10.2 103/ul Critically high 1.4-6.5 [facility] Comment on above: Performed By: #### C BC #### [facility] [address] [place] [address] Dr. Adam Mejía Neutrophils/100 WBC (Bld) 85.0 % Critically high 43.0-75.0 [facility] Comment on above: Performed By: #### C BC #### [facility] [address] [place] [address] Dr. Adam Mejía Platelet mean volume (Bld) [Entitic vol] 12.1 fL Normal 9.5-13.5 [facility] Comment on above: Performed By: #### C BC #### [facility] [address] [place] [address] Dr. Adam Mejía PLT 270 103/ul Normal 150-450 [facility] Comment on above: Performed By: #### C BC #### [facility] [address] [address] [address] Adam Mejía RBC 4.36 106/ul Normal 4.20-5.40 [facility] Comment on above: Performed By: #### C BC #### [facility] [address] [place] [address] Dr. Adam Mejía WBC 12.0 103/ul Critically high 4.0-11.0 [facility] Comment on above: Performed By: #### C BC #### [facility] [address] [place] [address] Dr[address]ía [address] ABD/PELV W CONon [...] NADIA MORROW Date: 2022-04-11 07:25 Normal [facility] LIPASEon 04-11-2022 Lipase [Catalytic activity/Vol] 152.0 U/L Normal 73.0-393.0 [facility] Comment on above: Performed By: #### A MY, CMP, LIPA #### [facility] [address] [address] [address] Adam Mejía PREG HCG QUALon 04-11-2022 , QUAL Negative Normal NEGATIVE [facility] Comment on above: Performed By: #### U MICRO, PREGU, ERUR #### [facility] [address] [address] [address] Adam Mejía PROF 14(COMP METB)on 022 Albumin [Mass/Vol] 3.8 g/dL Normal 3.4-5.0 [facility] Comment on above: Performed By: #### U MICRO, PREGU, ERUR #### [facility] [address] [address] [address] Adam Mejía Albumin/Globulin [Mass ratio] 0.9 {ratio} Normal [facility] Comment on above: Performed By: #### U MICRO, PREGU, ERUR #### [facility] [address] [address] [address] Adam Mejía ALP [Catalytic activity/Vol] 51 U/L Normal 46-116 [facility] Comment on above: Performed By: #### U MICRO, PREGU, ERUR #### [facility] [address] [address] [address] Adam Mejía ALT [Catalytic activity/Vol] 11 U/L Critically low 14-59 [facility] Comment on above: Performed By: #### U MICRO, PREGU, ERUR #### [facility] [address] [address] [address] Adam Mejía Anion gap [Moles/Vol] 11.9 mmol/L Normal [facility] Comment on above: Performed By: #### U MICRO, PREGU, ERUR #### [facility] [address] [address] [address] Adam Mejía AST [Catalytic activity/Vol] 14 U/L Critically low 15-37 [facility] Comment on above: Performed By: #### U MICRO, PREGU, ERUR #### [facility] [address] [address] [address] Adam Mejía Bilirubin [Mass/Vol] 0.4 mg/dL Normal 0.2-1.0 [facility] Comment on above: Performed By: #### U MICRO, PREGU, ERUR #### [facility] [address] [place] [address] Dr. Adam Mejía Calcium [Mass/Vol] 9.4 mg/dL Normal 8.5-10.1 [facility] Comment on above: Performed By: #### U MICRO, PREGU, ERUR #### [facility] [address] [place] [address] Dr. Adam Mejía Chloride [Moles/Vol] 104 mmol/L Normal 98-107 [facility] Comment on above: Performed By: #### U MICRO, PREGU, ERUR #### [facility] [address] [place] [address] Dr. Adam Mejía CO2 [Moles/Vol] 26.1 mmol/L Normal 21.0-32.0 [facility] Comment on above: Performed By: #### U MICRO, PREGU, ERUR #### [facility] [address] [place] [address] Dr. Adam Mejía Creatinine [Mass/Vol] 0.78 mg/dL Normal 0.55-1.02 [facility] Comment on above: Performed By: #### U MICRO, PREGU, ERUR #### [facility] [address] [place] [address] Dr. Adam Mejía EGFR-AF MALTESE >60 Normal >=60 [facility] Comment on above: Performed By: #### U MICRO, PREGU, ERUR #### [facility] [address] [address] [address] Adam Mejía EGFR-NON AF MALTESE >60 Normal >=60 [facility] Comment on above: Performed By: #### U MICRO, PREGU, ERUR #### [facility] [address] [address] [address] Adam Mejía Globulin (S) [Mass/Vol] 4.1 g/dL Normal [facility] Comment on above: Performed By: #### U MICRO, PREGU, ERUR #### [facility] [address] [address] [address] Adam Mejía Glucose [Mass/Vol] 111 mg/dL Critically high 74-106 [facility] Comment on above: Performed By: #### U MICRO, PREGU, ERUR #### [facility] [address] [address] [address] Adam Mejía Potassium [Moles/Vol] 4.0 mmol/L Normal 3.5-5.1 [facility] Comment on above: Performed By: #### U MICRO, PREGU, ERUR #### [facility] [address] [address] [address] Adam Mejía Protein [Mass/Vol] 7.9 g/dL Normal 6.4-8.2 [facility] Comment on above: Performed By: #### U MICRO, PREGU, ERUR #### [facility] [address] [address] [address] Adam Mejía Sodium [Moles/Vol] 138 mmol/L Normal 136-145 [facility] Comment on above: Performed By: #### U MICRO, PREGU, ERUR #### [facility] [address] [address] [address] Adam Mejía Urea nitrogen [Mass/Vol] 10.0 mg/dL Normal 7.0-18.0 [facility] Comment on above: Performed By: #### U MICRO, PREGU, ERUR #### [facility] [address] [address] [address] Adam Mejía Urea nitrogen/Creatinine [Mass ratio] 12.8 mg/mg Normal [facility] Comment on above: Performed By: #### U MICRO, PREGU, ERUR #### [facility] [address] [address] [address] Adam Mejía XR ABD FLAT UP_PA [...] NADIA MORROW Date: 2022-04-11 06:26 Normal [facility] Blood Pressure Cuff Sizeon 0 04-07-2022 Tobacco use status CPHS b) No [facility] Work Phone: Blood Pressure Cuff Size Adult [facility] Work Phone: Office Visit (Oncology Surge ry)on 04-07-2022 Follow-up visit Diagnoses/Problems Assessed Abdominal wall mass (689.30) (R22.2) Orders Abdominal wall mass Continue: Ondansetron [...] return. 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 for discussion of [...] aPTT Coag (PPP) [Time] 29.4 s 25.1-36.5 [facility] Albumin [Mass/volume] in Ser um or PlasmaOrdered By: Frank Silva on 04-04-2022 Albumin [Mass/Vol] 3.6 g/dL 3.2-5.5 [facility] Automated erythrocytes count in urine sediment (number/area)Ordered By: Janette Dior on 04-04-2022 RBC Auto (Urine sed) [#/Area] 20-49 [HPF] 0-4 [facility] Automated leukocytes count i n urine sediment (number/area)Ordered By: Janette Dior on 04-04-2022 WBC Auto (Urine sed) [#/Area] 10-19 [HPF] 0-4 [facility] Basophils Auto (Bld) [#/Vol] Ordered By: Frank Silva on 04-04-2022 Basophils (Bld) [#/Vol] 0.0 10*3/uL 0.0-0.2 [facility] Basophils/100 WBC Auto (Bld) Ordered By: Frank Silva on 04-04-2022 Basophils/100 WBC (Bld) 0.4 % . [facility] Bilirubin Test strip Ql (U)O rdered By: Janette Dior on 04-04-2022 Bilirubin Ql (U) Negative Negative [facility] Blood hemoglobin measurement (mass/volume)Ordered By: Frank Silva on 04-04-2022 Hemoglobin (Bld) [Mass/Vol] 10.0 g/dL 11.8-15.4 [facility] Blood leukocytes automated c ount (number/volume)Ordered By: Frank Silva on 04-04-2022 WBC (Bld) [#/Vol] 9.8 10*3/uL 4.5-11.0 [facility] Color Auto (U)Ordered By: Anatoliy Dior on 04-04-2022 Color (U) Yellow Yellow [facility] Creatinine and Glomerular fi ltration rate.predicted panel (S/P/Bld)Ordered By: Frank Silva on 04-04-2022 Creatinine [Mass/Vol] 0.93 mg/dL 0.44-1.03 [facility] Eosinophils Auto (Bld) [#/Vo l]Ordered By: Frank Silva on 04-04-2022 Eosinophils (Bld) [#/Vol] 0.0 10*3/uL 0.0-0.45 [facility] Eosinophils/100 WBC Auto (Bl d)Ordered By: Frank Silva on 04-04-2022 Eosinophils/100 WBC (Bld) 0.3 % . [facility] Erythrocyte distribution wid th Auto (RBC) [Ratio]Ordered By: Frank Silva on 04-04-2022 Erythrocyte distribution width (RBC) [Ratio] 14.1 % 11.9-15.3 [facility] Estimated glomerular filtrat ion rate (GFR) non- AmericanOrdered By: Frank Silva on 04-04-2022 GFR/1.73 sq M.predicted among non-blacks MDRD (S/P/Bld) [Vol rate/Area] > 60 mL/Min [facility] Globulin Calc (S) [Mass/Vol] Ordered By: Frank Silva on 04-04-2022 Globulin (S) [Mass/Vol] 3.1 g/dL [facility] HCG ( test) IA.rapi d Ql (U)Ordered By: Janette Dior on 04-04-2022 HCG ( test) Ql (U) Negative [facility] HCG ( test) IA.rapi d Ql (U)Ordered By: Frank Silva on 04-04-2022 HCG ( test) Ql (U) Negative [facility] Hematocrit Auto (Bld) [Volum e fraction]Ordered By: Frank Silva on 04-04-2022 Hematocrit (Bld) [Volume fraction] 31.9 % 34.0-46.4 [facility] Ketones Auto test strip (U) [Mass/Vol]Ordered By: Janette Dior on 04-04-2022 Ketones (U) [Mass/Vol] 4+ Negative [facility] - Chemistry and C hemistry - challengeOrdered By: Frank Silva on 04-04-2022 Natriuretic peptide B (Bld) [Mass/Vol] 44.0 pg/mL 5-100 [facility] - CoagulationOrde red By: Frank Silva on 04-04-2022 PT Coag (PPP) [Time] 14.0 s 9.0-12.9 [facility] - Hematology and Cell countsOrdered By: Frank Silva on 04-04-2022 Nucleated RBC/100 WBC (Bld) [Ratio] 0.0 % 0-0.5 [facility] - UrinalysisOrder ed By: Janette Dior on 04-04-2022 Hyaline casts LM Ql (Urine sed) 0-8 [LPF] 0-8 [facility] Lymphocytes Auto (Bld) [#/Vo l]Ordered By: Frank Silva on 04-04-2022 Lymphocytes (Bld) [#/Vol] 2.1 10*3/uL 1.00-4.8 [facility] Lymphocytes/100 WBC Auto (Bl d)Ordered By: Frank Silva on 04-04-2022 Lymphocytes/100 WBC (Bld) 21.5 % . [facility] MCH Auto (RBC) [Entitic mass ]Ordered By: Frank Silva on 04-04-2022 MCH (RBC) [Entitic mass] 22.2 pg 24.7-34.3 [facility] MCHC Auto (RBC) [Mass/Vol]Or dered By: Frank Silva on 04-04-2022 MCHC (RBC) [Mass/Vol] 31.2 g/dL 32.0-35.0 [facility] MCV Auto (RBC) [Entitic vol] Ordered By: Frank Silva on 04-04-2022 MCV (RBC) [Entitic vol] 71.2 fL 80-100 [facility] Monocytes Auto (Bld) [#/Vol] Ordered By: Frank Sivla on 04-04-2022 Monocytes (Bld) [#/Vol] 0.7 10*3/uL 0.0-0.8 [facility] Monocytes/100 WBC Auto (Bld) Ordered By: Frank Silva on 04-04-2022 Monocytes/100 WBC (Bld) 6.9 % . [facility] Neutrophils Auto (Bld) [#/Vo l]Ordered By: Frank Silva on 04-04-2022 Neutrophils (Bld) [#/Vol] 7.0 10*3/uL 1.8-7.7 [facility] Neutrophils/100 WBC Auto (Bl d)Ordered By: Frank Silva on 04-04-2022 Neutrophils/100 WBC (Bld) 70.9 % . [facility] Nitrite Test strip Ql (U)Ord ered By: Janette Dior on 04-04-2022 Nitrite Ql (U) Negative Negative [facility] No Panel InformationOrdered By: Frank Silva on 04-04-2022 Estimated GFR () > 60 mL/Min [facility] Comment on above: GFR estimated refere nce range: According to KDOQI guidelines, <60 ml/min/1.73m2 is sufficient to diagnose a patient with chronic kidney disease. Pharmacy Creatinine Clearance (Chem 84.97 [facility] Platelet mean volume Auto (B ld) [Entitic vol]Ordered By: Frank Silva on 04-04-2022 Platelet mean volume (Bld) [Entitic vol] 9.6 fL 6.3-10.7 [facility] Platelet poor plasma interna tional normalized ratio (INR) by coagulation assay (relatOrdered By: Frank Silva on 04-04-2022 INR Coag (PPP) [Relative time] 1.2 {INR} [facility] Comment on above: INR Therapeutic Rang e [...] 04-04-2022 Platelets (Bld) [#/Vol] 224 10*3/uL 150-450 [facility] Protein Auto test strip (U) [Mass/Vol]Ordered By: Janette Dior on 04-04-2022 Protein (U) [Mass/Vol] Trace mg/dL Negative [facility] Protein [Mass/volume] in Ser um or PlasmaOrdered By: Frank Silva on 04-04-2022 Protein [Mass/Vol] 6.7 g/dL 6.1-7.9 [facility] RBC Auto (Bld) [#/Vol]Ordere d By: Frank Silva on 04-04-2022 RBC (Bld) [#/Vol] 4.49 10*6/uL 3.60-5.00 [facility] Serum or plasma alanine keene otransferase measurement without P-5'-P (enzymatic activiOrdered By: Frank Silva on 04-04-2022 ALT No additional P-5'-P [Catalytic activity/Vol] 15 U/L 10-60 [facility] Serum or plasma albumin/glob ulin mass ratioOrdered By: Frank Silva on 04-04-2022 Albumin/Globulin [Mass ratio] 1.2 {ratio} [facility] Serum or plasma alkaline jared sphatase measurement (enzymatic activity/volume)Ordered By: Frank Silva on 04-04-2022 ALP [Catalytic activity/Vol] 48 U/L 32-92 [facility] Serum or plasma aspartate am inotransferase measurement (enzymatic activity/volume)Ordered By: Frank Silva on 04-04-2022 AST [Catalytic activity/Vol] 15 U/L 10-42 [facility] Serum or plasma calcium marychuy urement (mass/volume)Ordered By: Frank Silva on 04-04-2022 Calcium [Mass/Vol] 9.0 mg/dL 8.2-10.2 [facility] Serum or plasma chloride nemo surement (moles/volume)Ordered By: Frank Silva on 04-04-2022 Chloride [Moles/Vol] 102 mmol/L 95-114 [facility] Serum or plasma glucose marychuy urement (mass/volume)Ordered By: Frank Silva on 04-04-2022 Glucose [Mass/Vol] 92 mg/dL 70-100 [facility] Comment on above: ADA recommended refe rence range Random Glucose Reference Range is dependent on time and content of last meal. Glucose of more than 200 mg/dL in a nonstressed, ambulatory subject supports the diagnosis of Diabetes Mellitus. Serum or plasma potassium me asurement (moles/volume)Ordered By: Frank Silva on 04-04-2022 Potassium [Moles/Vol] 3.1 mmol/L 3.5-5.1 [facility] Serum or plasma sodium measu rement (moles/volume)Ordered By: Frank Silva on 04-04-2022 Sodium [Moles/Vol] 137 mmol/L 136-146 [facility] Serum or plasma total biliru bin measurement (mass/volume)Ordered By: Frank Silva on 04-04-2022 Bilirubin [Mass/Vol] 0.7 mg/dL 0.3-1.2 [facility] Serum or plasma total carbon dioxide measurement (moles/volume)Ordered By: Frank Silva on 04-04-2022 CO2 [Moles/Vol] 23.6 mmol/L 22.0-30.0 [facility] Serum or plasma urea nitroge n measurement (mass/volume)Ordered By: Frank Silva on 04-04-2022 Urea nitrogen [Mass/Vol] 8 mg/dL 9- [facility] Specific gravity Auto test s trip (U) [Rel density]Ordered By: Janette Dior on 04-04-2022 Specific gravity (U) [Rel density] 1.027 1.001-1.03 0 [facility] Squamous epithelial cells de tection in urine sediment by light microscopyOrdered By: Janette Dior on 04-04-2022 Epithelial cells.squamous LM Ql (Urine sed) 10- [HPF] 0-2 [facility] Troponin I.cardiac [Mass/vol ume] in Serum or Plasma by High sensitivity methodOrdered By: Frank Silva on 04-04-2022 Troponin I.cardiac High sensitivity method [Mass/Vol] 3 pg/mL 0-15 [facility] Urine bacteria detection by automated methodOrdered By: Janette Dior on 04-04-2022 Bacteria Auto Ql (U) None seen None Seen [facility] Urine clarity by refractomet ry automatedOrdered By: Janette Dior on 04-04-2022 Clarity Refractometry automated (U) Cloudy Clear [facility] Urine glucose measurement by automated test strip (mass/volume)Ordered By: Janette Dior on 04-04-2022 Glucose Auto test strip (U) [Mass/Vol] Normal mg/dL Normal [facility] Urine hemoglobin detection b y automated test stripOrdered By: Janette Dior on 04-04-2022 Hemoglobin Auto test strip Ql (U) 2+ Negative [facility] Urine leukocyte esterase det ection by automated test stripOrdered By: Janette Dior on 04-04-2022 Leukocyte esterase Auto test strip Ql (U) Negative Negative [facility] Urine sediment renal epithel ial cell count by microscopy (number/high power field)Ordered By: Janette Dior on 04-04-2022 Epithelial cells.renal LM.HPF (Urine sed) [#/Area] None seen [HPF] 0-1 [facility] Urobilinogen Auto test strip (U) [Mass/Vol]Ordered By: Janette Dior on 04-04-2022 Urobilinogen (U) [Mass/Vol] Normal mg/dL Normal [facility] pH Auto test strip (U)Ordere d By: Janette Dior on 04-04-2022 pH (U) 6.0 [pH] 5.0-9.0 [facility] HCG,URINEon 04-03-2022 Beta HCG ( test) Ql (U) Negative Normal Negative [facility] Comment on above: Order Comment: poct Performed By: #### H CGU #### [facility] [address] [place] [address] No Panel Informationon 04-03 [facility] Work Phone: Order Reconciliationon 04-03 Order Reconciliation [...] be shared with your follow-up providers (doctor, manager cafe, physical therapist, etc.). Follow Up with Dr. Crocker in [address] or operate motor vehicles for 24 hours and while taking narcotic pain me (more content not included)... Normal [facility] Surgical Pathology Depar tmenton 04-03-2022 [facility] Surgical Pathology Department Name LEANDRA FONSECA Pathologist: REBECCA LAN MD Date of Procedure: 04/03/2022 Date Received: 04/04/2022 Date Reported 04/17/2022 Submitting Physician: SLY CROCKER MD Location: [facility] Other External # FINAL DIAGNOSIS A. LEFT ABDOMINAL WALL ENDOMETRIOMA: --ENDOMETRIOSIS INVOLVING SUBCUTANEOUS FIBROVASCULAR AND ADIPOSE TISSUES. Electronically Signed Out By REBECCA LAN MD/SHIRAZ By the signature on this report, the individual or group listed as making the Final Interpretation/Diagnosis certifies that they have reviewed this case. Diagnostic interpretation performed at [facility] [address] [place] [address] Clinical History: Physician Contact Number: [phone] Fixative (A): Formalin Clinical Diagnosis History LEFT [...] fibrous cut surfaces admixed with yellow adipose. 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 Summary of Cassettes: Specimen Label Site A 1-2 medial tip, full-thickness, bisected 3-4 lateral, full-thickness, bisected 5-7 disability representative sections of fibrous tissue to closest superior margin 8-10 disability representative sections of fibrous tissue to closest inferior margin mjr/04/06/2022 [facility] Department of Pathology [address] [place] [id number] Normal [facility] Comment on above: Performed By: #### U [facility] #### [facility] Surgical Pathology Department [address] [place], [place] [id number] Urine Teston 04-03 HCG ( test) Ql (U) Negative Negative [facility] [address] Work Phone: COVID-19 Positive/NegativeOr dered By: Sly Crocker on 03-31-2022 SARS-CoV-2 (COVID-19) N gene HIRAM+probe Ql (Resp) Negative Negative [facility] Comment on above: Testing for SARS-CoV -2 by RT-PCR This test was developed and its performance characteristics determined by [employer] ([employer] and validated at the [facility]. 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 (procedure may be cancelled if no light truck driver), insurance information, remove jewerly/piercings How to be AddressedAshrio [facility] Spoken Language PreferredEnglish Source of Informationpatient Stated Reason for AdmissionLeft abdominal wall tumor resection Primary Contact Name and NumberBoyfriend- Deantrae [phone] [facility]: Weight in kg75.4 kilogram(s) Weight in iig253.2 pound(s) Weight Methodactual (measured) Scale Typestanding Height [...] child(uriah) Living Arrangementshouse Resource/Environmental Concernsnone [facility] Tobacco Use: Tobacco Useno Pre-op Checklist: Arrival [id number] Arrival Time11:16 Procedure Typeabdominal wall tumor resection NPOyes Last Food [id number] 21:00 Last Clear Fluid [id number] 21:00 ID Band On Patientpatient ID (name), [...] Updated: 03-Apr-2022 11:57 by Aviva Galvez) Normal [facility] Office Visit (Oncology Surge ry)on 03-24-2022 Follow-up visit Diagnoses/Problems Assessed Abdominal wall mass (899.30) (R22.2) *Orders Abdominal wall mass CORONAVIRUS 2019 RNA BY PCR, SCREEN ASYMPTOMATIC AMBULATORY; Status:Hold For - Specimen/Data Collection,Retrospective By Protocol Authorization; Requested for:[id number]; Abdominal wall mass (693.29) (R22.2) Patient Discussion/Summary Mrs. Fonseca is a [...] Mass of prior scar History of Present IllnessMs. [...] with thyroid problems Social history: Lives in [place] with her boyfriend. She has 2 children [...] Kim Isaac; (more content not included)... Normal [facility] Tobacco Screening.on 022 Fall risk assessment a) No falls within the last year [facility] Work Phone: Tobacco use status CPHS b) No [facility] Work Phone: Automated erythrocytes count in urine sediment (number/area)Ordered By: Jim Vega on 03-15-2022 RBC Auto (Urine sed) [#/Area] 5-9 [HPF] 0-4 [facility] Automated leukocytes count i n urine sediment (number/area)Ordered By: Jim Vega on 03-15-2022 WBC Auto (Urine sed) [#/Area] None seen [HPF] 0-4 [facility] Basophils Auto (Bld) [#/Vol] Ordered By: Jim Vega on 03-15-2022 Basophils (Bld) [#/Vol] 0.1 10*3/uL 0.0-0.2 [facility] Basophils/100 WBC Auto (Bld) Ordered By: Jim Vega on 03-15-2022 Basophils/100 WBC (Bld) 0.7 % . [facility] Bilirubin Test strip Ql (U)O rdered By: Jim Vega on 03-15-2022 Bilirubin Ql (U) Negative Negative [facility] Blood hemoglobin measurement (mass/volume)Ordered By: Jim Vega on 03-15-2022 Hemoglobin (Bld) [Mass/Vol] 9.9 g/dL 11.8-15.4 [facility] Blood leukocytes automated c ount (number/volume)Ordered By: Jim Vega on 03-15-2022 WBC (Bld) [#/Vol] 8.3 10*3/uL 4.5-11.0 [facility] Body fluid albumin measureme nt (mass/volume)Ordered By: Jim Vega on 03-15-2022 Albumin (Body fld) [Mass/Vol] 3.7 g/dL 3.2-5.5 [facility] Color Auto (U)Ordered By: Narinder Vega on 03-15-2022 Color (U) Yellow Yellow [facility] Creatinine and Glomerular fi ltration rate.predicted panel (S/P/Bld)Ordered By: Jim Vega on 03-15-2022 Creatinine [Mass/Vol] 0.85 mg/dL 0.44-1.03 [facility] Eosinophils Auto (Bld) [#/Vo l]Ordered By: Jim Vega on 03-15-2022 Eosinophils (Bld) [#/Vol] 0.2 10*3/uL 0.0-0.45 [facility] Eosinophils/100 WBC Auto (Bl d)Ordered By: Jim Vega on 03-15-2022 Eosinophils/100 WBC (Bld) 2.0 % . [facility] Erythrocyte distribution wid th Auto (RBC) [Ratio]Ordered By: Jim Vega on 03-15-2022 Erythrocyte distribution width (RBC) [Ratio] 14.4 % 11.9-15.3 [facility] Estimated glomerular filtrat ion rate (GFR) non- AmericanOrdered By: Jim Vega on 03-15-2022 GFR/1.73 sq M.predicted among non-blacks MDRD (S/P/Bld) [Vol rate/Area] > 60 mL/Min [facility] Globulin Calc (S) [Mass/Vol] Ordered By: Jim Vega on 03-15-2022 Globulin (S) [Mass/Vol] 3.6 g/dL [facility] HCG ( test) IA.rapi d Ql (U)Ordered By: Jim Vega on 03-15-2022 HCG ( test) Ql (U) Negative [facility] Hematocrit Auto (Bld) [Volum e fraction]Ordered By: Jim Vega on 03-15-2022 Hematocrit (Bld) [Volume fraction] 31.8 % 34.0-46.4 [facility] Ketones Auto test strip (U) [Mass/Vol]Ordered By: Jim Vega on 03-15-2022 Ketones (U) [Mass/Vol] Negative Negative [facility] Laboratory - Chemistry and C hemistry - challengeOrdered By: Jim Vega on 03-15-2022 Lipase [Catalytic activity/Vol] 53.0 U/L 22-51 [facility] Natriuretic peptide B (Bld) [Mass/Vol] 13.0 pg/mL 5-100 [facility] Laboratory - Hematology and Cell countsOrdered By: Jim Vega on 03-15-2022 Nucleated RBC/100 WBC (Bld) [Ratio] 0.0 % 0-0.5 [facility] Laboratory - UrinalysisOrder ed By: Jim Vega on 03-15-2022 Hyaline casts LM Ql (Urine sed) None seen [LPF] 0-8 [facility] Lymphocytes Auto (Bld) [#/Vo l]Ordered By: Jim Vega on 03-15-2022 Lymphocytes (Bld) [#/Vol] 1.9 10*3/uL 1.00-4.8 [facility] Lymphocytes/100 WBC Auto (Bl d)Ordered By: Jim Vega on 03-15-2022 Lymphocytes/100 WBC (Bld) 22.9 % . [facility] MCH Auto (RBC) [Entitic mass ]Ordered By: Jim Vega on 03-15-2022 MCH (RBC) [Entitic mass] 22.2 pg 24.7-34.3 [facility] MCHC Auto (RBC) [Mass/Vol]Or dered By: Jim Vega on 03-15-2022 MCHC (RBC) [Mass/Vol] 31.2 g/dL 32.0-35.0 [facility] MCV Auto (RBC) [Entitic vol] Ordered By: Jim Vega on 03-15-2022 MCV (RBC) [Entitic vol] 71.1 fL 80-100 [facility] Monocytes Auto (Bld) [#/Vol] Ordered By: Jim Vega on 03-15-2022 Monocytes (Bld) [#/Vol] 0.6 10*3/uL 0.0-0.8 [facility] Monocytes/100 WBC Auto (Bld) Ordered By: Jim Vega on 03-15-2022 Monocytes/100 WBC (Bld) 6.9 % . [facility] Neutrophils Auto (Bld) [#/Vo l]Ordered By: Jim Vega on 03-15-2022 Neutrophils (Bld) [#/Vol] 5.6 10*3/uL 1.8-7.7 [facility] Neutrophils/100 WBC Auto (Bl d)Ordered By: Jim Vega on 03-15-2022 Neutrophils/100 WBC (Bld) 67.5 % . [facility] Nitrite Test strip Ql (U)Ord ered By: Jim Vega on 03-15-2022 Nitrite Ql (U) Negative Negative [facility] No Panel InformationOrdered By: Jim Vega on 03-15-2022 Estimated GFR () > 60 mL/Min [facility] Comment on above: GFR estimated refere nce range: According to KDOQI guidelines, <60 ml/min/1.73m2 is sufficient to diagnose a patient with chronic kidney disease. Pharmacy Creatinine Clearance (Chem 93.64 [facility] Platelet mean volume Auto (B ld) [Entitic vol]Ordered By: Jim Vega on 03-15-2022 Platelet mean volume (Bld) [Entitic vol] 9.4 fL 6.3-10.7 [facility] Platelets Auto (Bld) [#/Vol] Ordered By: Jim Vega on 03-15-2022 Platelets (Bld) [#/Vol] 254 10*3/uL 150-450 [facility] Protein Auto test strip (U) [Mass/Vol]Ordered By: Jim Vega on 03-15-2022 Protein (U) [Mass/Vol] Negative Negative [facility] Protein [Mass/volume] in Ser um or PlasmaOrdered By: Jim Vega on 03-15-2022 Protein [Mass/Vol] 7.3 g/dL 6.1-7.9 [facility] RBC Auto (Bld) [#/Vol]Ordere d By: Jim Vega on 03-15-2022 RBC (Bld) [#/Vol] 4.47 10*6/uL 3.60-5.00 [facility] Serum or plasma alanine keene otransferase measurement without P-5'-P (enzymatic activiOrdered By: Jim Vega on 03-15-2022 ALT No additional P-5'-P [Catalytic activity/Vol] 14 U/L 10-60 [facility] Serum or plasma albumin/glob ulin mass ratioOrdered By: Jim Vega on 03-15-2022 Albumin/Globulin [Mass ratio] 1.0 {ratio} [facility] Serum or plasma alkaline jared sphatase measurement (enzymatic activity/volume)Ordered By: Jim Vega on 03-15-2022 ALP [Catalytic activity/Vol] 45 U/L 32-92 [facility] Serum or plasma aspartate am inotransferase measurement (enzymatic activity/volume)Ordered By: Jim Vega on 03-15-2022 AST [Catalytic activity/Vol] 17 U/L 10-42 [facility] Serum or plasma calcium marychuy urement (mass/volume)Ordered By: Jim Vega on 03-15-2022 Calcium [Mass/Vol] 9.4 mg/dL 8.2-10.2 [facility] Serum or plasma chloride nemo surement (moles/volume)Ordered By: Jim Vega on 03-15-2022 Chloride [Moles/Vol] 102 mmol/L 95-114 [facility] Serum or plasma glucose marychuy urement (mass/volume)Ordered By: Jim Vega on 03-15-2022 Glucose [Mass/Vol] 85 mg/dL 70-100 [facility] Comment on above: ADA recommended refe rence range Random Glucose Reference Range is dependent on time and content of last meal. Glucose of more than 200 mg/dL in a nonstressed, ambulatory subject supports the diagnosis of Diabetes Mellitus. Serum or plasma potassium me asurement (moles/volume)Ordered By: Jim Vega on 03-15-2022 Potassium [Moles/Vol] 4.2 mmol/L 3.5-5.1 [facility] Serum or plasma sodium measu rement (moles/volume)Ordered By: Jim Vega on 03-15-2022 Sodium [Moles/Vol] 136 mmol/L 136-146 [facility] Serum or plasma total biliru bin measurement (mass/volume)Ordered By: Jim Vega on 03-15-2022 Bilirubin [Mass/Vol] 0.1 mg/dL 0.3-1.2 [facility] Serum or plasma total carbon dioxide measurement (moles/volume)Ordered By: Jim Vega on 03-15-2022 CO2 [Moles/Vol] 26.3 mmol/L 22.0-30.0 [facility] Serum or plasma urea nitroge n measurement (mass/volume)Ordered By: Jim Vega on 03-15-2022 Urea nitrogen [Mass/Vol] 9 mg/dL 9-23 [facility] Specific gravity Auto test s trip (U) [Rel density]Ordered By: Jim Vega on 03-15-2022 Specific gravity (U) [Rel density] 1.010 1.001-1.03 0 [facility] Squamous epithelial cells de tection in urine sediment by light microscopyOrdered By: Jim Vega on 03-15-2022 Epithelial cells.squamous LM Ql (Urine sed) 0-1 [HPF] 0-2 [facility] Troponin I.cardiac [Mass/vol ume] in Serum or Plasma by High sensitivity methodOrdered By: Jim Vega on 03-15-2022 Troponin I.cardiac High sensitivity method [Mass/Vol] 3 pg/mL 0-15 [facility] Urine bacteria detection by automated methodOrdered By: Jim Vega on 03-15-2022 Bacteria Auto Ql (U) None seen None Seen [facility] Urine clarity by refractomet ry automatedOrdered By: Jim Vega on 03-15-2022 Clarity Refractometry automated (U) Clear Clear [facility] Urine glucose measurement by automated test strip (mass/volume)Ordered By: Jim Vega on 03-15-2022 Glucose Auto test strip (U) [Mass/Vol] Normal mg/dL Normal [facility] Urine hemoglobin detection b y automated test stripOrdered By: Jim Vega on 03-15-2022 Hemoglobin Auto test strip Ql (U) Trace Negative [facility] Urine leukocyte esterase det ection by automated test stripOrdered By: Jim Vega on 03-15-2022 Leukocyte esterase Auto test strip Ql (U) Negative Negative [facility] Urobilinogen Auto test strip (U) [Mass/Vol]Ordered By: Jim Vega on 03-15-2022 Urobilinogen (U) [Mass/Vol] Normal mg/dL Normal [facility] pH Auto test strip (U)Ordere d By: Jim Vega on 03-15-2022 pH (U) 7.5 [pH] 5.0-9.0 [facility] US FINE NEEDLE ASP EXPon US FINE NEEDLE ASP EXP Begin Addendu m #1 COLLECTED DATE/TIME: 02/20/2022 13:18 EST Final Diagnosis Report for [facility] [place], [place] (A/B) MASS NEAR SCAR; FINE NEEDLE [...] 2. Pathology results are pending. Normal [facility] US SINGLE QUAD LT LOWERon US [...] KALPESH FOWLER Date: 2022-02-02 09:33 Normal [facility] CT ABD/PELVIS WO CONon 01-11 CT [...] JENN GREWAL Date: 2022-01-11 11:40 Normal [facility] Vital Signs Date Time Vital Sign Value Performing Clinician Facility 02-11-2025 10:50-0400 Body mass index (BMI) [Ratio] 35.32 kg/m2 Priscilla SRIVASTAVA Work Phone: [facility] 05-28-2025 10:50-0400 Body weight 90.45 kg Priscilla SRIVASTAVA Work Phone: [facility] 02-11-2025 10:50-0400 Diastolic blood pressure 78 mm[Hg] Priscilla Warren PA Work Phone: [facility] 02-11-2025 10:50-0400 Systolic blood pressure 122 mm[Hg] Priscilla Warren PA Work Phone: [facility] 01-27-2025 08:57-0400 Body mass index (BMI) [Ratio] 35.25 kg/m2 Malcolm Helder DO Work Phone: [facility] 01-27-2025 08:57-0400 Body weight 90.27 kg Malcolm Helder DO Work Phone: [facility] 01-27-2025 08:57-0400 Diastolic blood pressure 78 mm[Hg] Malcolm Helder DO Work Phone: [facility] 01-27-2025 08:57-0400 Systolic blood pressure 128 mm[Hg] Malcolm Helder DO Work Phone: [facility] 01-14-2025 11:25-0400 Body mass index (BMI) [Ratio] 34.63 kg/m2 Reynold Mariama [employer] Work Phone: [facility] 01-14-2025 11:25-0400 Body weight 88.68 kg Reynold Mariama [employer] Work Phone: [facility] 01-14-2025 11:25-0400 Diastolic blood pressure 66 mm[Hg] Reynold Mariama [employer] Work Phone: [facility] 01-14-2025 11:25-0400 Systolic blood pressure 102 mm[Hg] Reynold Mariama [employer] Work Phone: [facility] 12-30-2024 11:45-0400 Body mass index (BMI) [Ratio] 33.66 kg/m2 Malcolm Helder DO Work Phone: [facility] 12-30-2024 11:45-0400 Body weight 86.18 kg Malcolm Helder DO Work Phone: [facility] 12-30-2024 11:45-0400 Diastolic blood pressure 74 mm[Hg] Malcolm Helder DO Work Phone: [facility] 12-30-2024 11:45-0400 Systolic blood pressure 122 mm[Hg] Malcolm Helder DO Work Phone: [facility] 11-21-2024 09:53-0500 Body height 160 cm Henny Montgomery MD Work Phone: [facility] 11-21-2024 09:53-0500 Body mass index (BMI) [Ratio] 32.64 kg/m2 Henny Montgomery MD Work Phone: [facility] 11-21-2024 09:53-0500 Body weight 83.55 kg Henny Montgomery MD Work Phone: [facility] 11-21-2024 09:53-0500 Diastolic blood pressure 69 mm[Hg] Henny Montgomery MD Work Phone: [facility] 11-21-2024 09:53-0500 Heart rate 87 /min Henny Montgomery MD Work Phone: [facility] 11-21-2024 09:53-0500 Systolic blood pressure 113 mm[Hg] Henny Montgomery MD Work Phone: [facility] 11-10-2024 14:55-0500 Body height 157.48 cm Yudelka Lopez APRN Work Phone: [facility] 11-10-2024 14:55-0500 Body mass index (BMI) [Ratio] 33.6 kg/m2 Yudelka Lopez APRN Work Phone: [facility] 11-10-2024 14:55-0500 Body temperature 97.8 [degF] Yudelka Lopez APRN Work Phone: [facility] 11-10-2024 14:55-0500 Body weight 83.46 kg Yudelka Lopez APRN Work Phone: [facility] 11-10-2024 14:55-0500 Diastolic blood pressure 80 mm[Hg] Yudelka Lopez APRN Work Phone: [facility] 11-10-2024 14:55-0500 Heart rate 9 /min Yudelka Lopez APRN Work Phone: [facility] 11-10-2024 14:55-0500 Respiratory rate 16 /min Yudelka Lopez APRN Work Phone: [facility] 11-10-2024 14:55-0500 SaO2% (BldA) [Mass fraction] 99 % Yudelka Lopez APRN Work Phone: [facility] 11-10-2024 14:55-0500 Systolic blood pressure 121 mm[Hg] Yudelka Lopez APRN Work Phone: [facility] 11-04-2024 09:28-0500 Body mass index (BMI) [Ratio] 31.71 kg/m2 Malcolm Helder DO Work Phone: [facility] 11-04-2024 09:28-0500 Body weight 81.19 kg Malcolm Helder DO Work Phone: [facility] 11-04-2024 09:28-0500 Diastolic blood pressure 70 mm[Hg] Malcolm Helder DO Work Phone: [facility] 11-04-2024 09:28-0500 Systolic blood pressure 120 mm[Hg] Malcolm Helder DO Work Phone: [facility] 10-14-2024 11:37-0500 Body mass index (BMI) [Ratio] 30.08 kg/m2 Priscilla SRIVASTAVA Work Phone: [facility] 10-14-2024 11:37-0500 Body weight 77.02 kg Priscilla SRIVASTAVA Work Phone: [facility] 10-14-2024 11:37-0500 Diastolic blood pressure 66 mm[Hg] Priscilla SRIVASTAVA Work Phone: [facility] 10-14-2024 11:37-0500 Systolic blood pressure 124 mm[Hg] Priscilla Warren PA Work Phone: [facility] 09-11-2024 10:52-0500 Body mass index (BMI) [Ratio] 28.77 kg/m2 Malcolm Helder DO Work Phone: [facility] 09-11-2024 10:52-0500 Body weight 73.66 kg Malcolm Helder DO Work Phone: [facility] 09-11-2024 10:52-0500 Diastolic blood pressure 62 mm[Hg] Malcolm Helder DO Work Phone: [facility] 09-11-2024 10:52-0500 Systolic blood pressure 128 mm[Hg] Malcolm Helder DO Work Phone: [facility] 08-06-2024 23:53-0500 Diastolic blood pressure 68 mm[Hg] Yudelka Lopez APRN Work Phone: [facility] 08-06-2024 23:53-0500 Heart rate 75 /min Yudelka Lopez [employer] Work Phone: [facility] 08-06-2024 23:53-0500 Respiratory rate 22 /min Yudelka Lopez APRN Work Phone: [facility] 08-06-2024 23:53-0500 SaO2% (BldA) [Mass fraction] 100 % Yudelka Lopez [employer] Work Phone: [facility] 08-06-2024 23:53-0500 Systolic blood pressure 128 mm[Hg] Yudelka Lopez APRN Work Phone: [facility] 08-06-2024 21:25-0500 Body height 157.48 cm Yudelka Lopez APRN Work Phone: [facility] 08-06-2024 21:25-0500 Body weight 74.3 kg Yudelka Lopez APRN Work Phone: [facility] 07-14-2024 15:03-0400 Diastolic blood pressure 75 mm[Hg] BETTY Lopez Work Phone: [facility] 07-14-2024 15:03-0400 Heart rate 71 /min BETTY Lopez Work Phone: [facility] 07-14-2024 15:03-0400 Respiratory rate 18 /min BETTY Lopez Work Phone: [facility] 07-14-2024 15:03-0400 SaO2% (BldA) [Mass fraction] 99 % BETTY Lopez Work Phone: [facility] 07-14-2024 15:03-0400 Systolic blood pressure 114 mm[Hg] BETTY Lopez Work Phone: [facility] 07-14-2024 12:23-0400 Body height 157.48 cm BETTY Lopez Work Phone: [facility] 07-14-2024 12:17-0400 Body height 157.48 cm BETTY Loepz Work Phone: [facility] 07-14-2024 12:17-0400 Body temperature 98.4 [degF] BETTY Lopez Work Phone: [facility] 07-14-2024 12:17-0400 Body weight 74 kg BETTY Lopez Work Phone: [facility] 07-14-2024 11:43-0400 Body height 157.48 cm [facility] 07-14-2024 11:43-0400 Body mass index (BMI) [Ratio] 29 kg/m2 [facility] 07-14-2024 11:43-0400 Body temperature 98.2 [degF] [facility] 07-14-2024 11:43-0400 Body weight 72.12 kg [facility] 07-14-2024 11:43-0400 Diastolic blood pressure 76 mm[Hg] [facility] 07-14-2024 11:43-0400 Heart rate 97 /min [facility] 07-14-2024 11:43-0400 SaO2% (BldA) [Mass fraction] 99 % [facility] 07-14-2024 11:43-0400 Systolic blood pressure 114 mm[Hg] [facility] 09-28-2023 14:34-0500 Body weight 73.93 kg [employer] Yudelka Lopez Work Phone: [facility] 09-28-2023 14:34-0500 Diastolic blood pressure 79 mm[Hg] [employer] Yudelka Lopez Work Phone: [facility] 09-28-2023 14:34-0500 Heart rate 66 /min [employer] Yudelka Lopez Work Phone: [facility] 09-28-2023 14:34-0500 Respiratory rate 20 /min [employer] Yudelka Lopez Work Phone: [facility] 09-28-2023 14:34-0500 SaO2% (BldA) [Mass fraction] 100 % [employer] Yudelka Lopez Work Phone: [facility] 09-28-2023 14:34-0500 Systolic blood pressure 119 mm[Hg] [employer] Yudelka Lopez Work Phone: [facility] 06-27-2023 10:33-0400 Body height 157.48 cm [employer] Yudelka Lopez Work Phone: [facility] 06-27-2023 10:33-0400 Body temperature 97.7 [degF] [employer] Yudelka Lopez Work Phone: [facility] 06-27-2023 10:33-0400 Body weight 72.52 kg [employer] Yudelka Lopez Work Phone: [facility] 06-27-2023 10:33-0400 Diastolic blood pressure 80 mm[Hg] [employer] Yudelka Lopez Work Phone: [facility] 06-27-2023 10:33-0400 Heart rate 80 /min [employer] Yudelka Lopez Work Phone: [facility] 06-27-2023 10:33-0400 Respiratory rate 20 /min [employer] Yudelka oLpez Work Phone: [facility] 06-27-2023 10:33-0400 SaO2% (BldA) [Mass fraction] 100 % BETTY Lopez Work Phone: [facility] 06-27-2023 10:33-0400 Systolic blood pressure 120 mm[Hg] BETTY Lopez Work Phone: [facility] 06-04-2023 18:15-0400 Body height 157.48 cm Marvin Fontenot Other [employer] Other 06-04-2023 18:15-0400 Body mass index (BMI) [Ratio] 30.36 kg/m2 Marvin Fontenot Other [employer] Other 06-04-2023 18:15-0400 Body temperature 98.5 [degF] Marvin Fontenot Other [employer] Other 06-04-2023 18:15-0400 Body weight 75.3 kg Marvin Fontenot Other [employer] Other 06-04-2023 18:15-0400 Respiratory rate 20 /min Marvin Fontenot Other [employer] Other 06-04-2023 18:15-0400 SaO2% (BldA) [Mass fraction] 98 % Marvin Fnotenot Other [employer] Other 03-21-2023 15:04-0400 Body weight 73.16 kg BETTY Lopez Work Phone: [facility] 03-21-2023 15:04-0400 Diastolic blood pressure 74 mm[Hg] [employer] Yudelka Lopez Work Phone: [facility] 03-21-2023 15:04-0400 Heart rate 109 /min [employer] Yudelka Lopez Work Phone: [facility] 03-21-2023 15:04-0400 Respiratory rate 20 /min [employer] Yudelka Lopez Work Phone: [facility] 03-21-2023 15:04-0400 SaO2% (BldA) [Mass fraction] 99 % [employer] Yudelka Lopez Work Phone: [facility] 03-21-2023 15:04-0400 Systolic blood pressure 134 mm[Hg] [employer] Yudelka Lopez Work Phone: [facility] 02-07-2023 10:42-0400 Diastolic blood pressure 70 mm[Hg] [employer] Yudelka Lopez Work Phone: [facility] 02-07-2023 10:42-0400 Heart rate 82 /min [employer] Yudelka Lopez Work Phone: [facility] 02-07-2023 10:42-0400 Respiratory rate 18 /min [employer] Yudelka Lopez Work Phone: [facility] 02-07-2023 10:42-0400 SaO2% (BldA) [Mass fraction] 97 % [employer] Yudelka Lopez Work Phone: [facility] 02-07-2023 10:42-0400 Systolic blood pressure 118 mm[Hg] [employer] Yudelka Lopez Work Phone: [facility] 02-07-2023 08:15-0400 Body temperature 98 [degF] [employer] Yudelka Lopez Work Phone: [facility] 02-06-2023 10:57-0400 Diastolic blood pressure 54 mm[Hg] [employer] Yudelka Lopez Work Phone: [facility] 02-06-2023 10:57-0400 Heart rate 66 /min [employer] Yudelka Lopez Work Phone: [facility] 02-06-2023 10:57-0400 Respiratory rate 18 /min [employer] Yudelka Lopez Work Phone: [facility] 02-06-2023 10:57-0400 SaO2% (BldA) [Mass fraction] 99 % COLLECTOR OF INTERNAL REVENUEFamilia Lopez Work Phone: [facility] 02-06-2023 10:57-0400 Systolic blood pressure 113 mm[Hg] [employer] Yudelka Lopez Work Phone: [facility] 02-06-2023 09:14-0400 Body height 160.02 cm COLLECTOR OF INTERNAL REVENUEFamilia Lopez Work Phone: [facility] 02-06-2023 09:14-0400 Body temperature 98.1 [degF] [employer] Yudelka Lopez Work Phone: [facility] 02-06-2023 09:14-0400 Body weight 73 kg COLLECTOR OF INTERNAL REVENUEFamilia Lopez Work Phone: [facility] 01-25-2023 12:38-0400 Diastolic blood pressure 74 mm[Hg] BETTY Lopez Work Phone: [facility] 01-25-2023 12:38-0400 Heart rate 72 /min BETTY Lopez Work Phone: [facility] 01-25-2023 12:38-0400 Respiratory rate 18 /min BETTY Lopez Work Phone: [facility] 01-25-2023 12:38-0400 SaO2% (BldA) [Mass fraction] 100 % BETTY Lopez Work Phone: [facility] 01-25-2023 12:38-0400 Systolic blood pressure 101 mm[Hg] BETTY Lopez Work Phone: [facility] 01-25-2023 08:19-0400 Body temperature 98.3 [degF] BETTY Lopez Work Phone: [facility] 01-02-2023 10:31-0400 Body weight 75.2 kg BETTY Lopez Work Phone: [facility] 12-21-2022 10:00-0400 Body height 157.48 cm Imad Asaad Other [facility] [employer] Other 12-21-2022 10:00-0400 Body mass index (BMI) [Ratio] 30.36 kg/m2 Imad Asaad Other [employer] Other 12-21-2022 10:00-0400 Body weight 75.3 kg Imad Asaad Other [employer] Other 12-21-2022 10:00-0400 Diastolic blood pressure 68 mm[Hg] Imad Asaad Other [employer] Other 12-21-2022 10:00-0400 Systolic blood pressure 115 mm[Hg] Imad Asaad Other [employer] Other 11-28-2022 20:38-0400 Body height 157.48 cm COL[employer]OR [employer]NAL REVENUE Yudelka Lopez Work Phone: [facility] 11-28-2022 20:38-0400 Body temperature 97.9 [degF] [employer]NAL [employer]UE Yudelka Lopez Work Phone: [facility] 11-28-2022 20:38-0400 Body weight 75.2 kg COLLECTOR OF INTERNAL REVENUEFamilia Lopez Work Phone: [facility] 11-28-2022 20:38-0400 Diastolic blood pressure 72 mm[Hg] [employer] Yudelka Lopez Work Phone: [facility] 11-28-2022 20:38-0400 Heart rate 78 /min [employer]NAL [employer]UE Yudelka Lopez Work Phone: [facility] 11-28-2022 20:38-0400 Respiratory rate 18 /min [employer]NAL [employer]UE Yudelka Lopez Work Phone: [facility] 11-28-2022 20:38-0400 SaO2% (BldA) [Mass fraction] 100 % [employer]UE Yudelka Lopez Work Phone: [facility] 11-28-2022 20:38-0400 Systolic blood pressure 140 mm[Hg] COL[employer]OR [employer]NAL REVENUE Yudelka Lopez Work Phone: [facility] 11-01-2022 12:30-0500 Diastolic blood pressure 66 mm[Hg] [employer]NAL REVENUE Yudelka Loepz Work Phone: [facility] 11-01-2022 12:30-0500 Heart rate 60 /min [employer]NAL [employer]UE Yudelka Lopez Work Phone: [facility] 11-01-2022 12:30-0500 Respiratory rate 18 /min [employer]NAL RE[employer]UE Yudelka Lopez Work Phone: [facility] 11-01-2022 12:30-0500 SaO2% (BldA) [Mass fraction] 100 % [employer]NAL [employer]UE Yudelka Lopez Work Phone: [facility] 11-01-2022 12:30-0500 Systolic blood pressure 108 mm[Hg] [employer]NAL REVENUE Yudelka Lopez Work Phone: [facility] 11-01-2022 10:17-0500 Body temperature 98.9 [degF] [employer]UE Yudelka Lopez Work Phone: [facility] 10-10-2022 15:05-0500 Diastolic blood pressure 62 mm[Hg] [employer]NAL RE[employer]UE Yudelka Lopez Work Phone: [facility] 10-10-2022 15:05-0500 Heart rate 68 /min [employer] Yudelka Lopez Work Phone: [facility] 10-10-2022 15:05-0500 Respiratory rate 16 /min [employer]NAL RE[employer]UE Yudelka John Work Phone: [facility] 10-10-2022 15:05-0500 Systolic blood pressure 111 mm[Hg] [employer]UE Yudelka Lopez Work Phone: [facility] 10-10-2022 13:05-0500 Body temperature 98.3 [degF] [employer] INTERNAL REVENUE Yudelka Lopez Work Phone: [facility] 10-10-2022 13:05-0500 SaO2% (BldA) [Mass fraction] 100 % [employer]OR [employer]NAL REVENUE Yudelka John Work Phone: [facility] 10-03-2022 10:46-0500 Body weight 72.41 kg COL[employer]OR OF INTERNAL REVENUE Yudelka Lopez Work Phone: [facility] 10-03-2022 10:33-0500 Body height 157.48 cm COL[employer]OR OF [employer]NAL RE[employer]UE Yudelka Lopez Work Phone: [facility] 09-21-2022 14:02-0500 Diastolic blood pressure 54 mm[Hg] [employer]OR OF INTERNAL REVENUE Yudelka Lopez Work Phone: [facility] 09-21-2022 14:02-0500 Heart rate 72 /min COL[employer]NAL [employer]UE Yudelka Lopez Work Phone: [facility] 09-21-2022 14:02-0500 Respiratory rate 18 /min COL[employer]OR OF INTERNAL REVENUE Yudelka Lopez Work Phone: [facility] 09-21-2022 14:02-0500 SaO2% (BldA) [Mass fraction] 100 % [employer]OR [employer]NAL REVENUE Yudelka Lopez Work Phone: [facility] 09-21-2022 14:02-0500 Systolic blood pressure 105 mm[Hg] COL[employer]OR OF INTERNAL REVENUE Yudelka Lopez Work Phone: [facility] 09-21-2022 12:05-0500 Body height 157.48 cm COLLECTOR OF INTERNAL REVENUEFamilia Lopez Work Phone: [facility] 09-21-2022 12:05-0500 Body temperature 98.2 [degF] COL[employer] INTERNAL REVENUE Yudelka Lopez Work Phone: [facility] 09-21-2022 12:05-0500 Body weight 71.6 kg COLLECTOR OF INTERNAL REVENUE Yudelka Lopez Work Phone: [facility] 07-04-2022 20:47-0400 Body temperature 98.2 [degF] COL[employer]OR OF INTERNAL REVENUE Yudelka Lopez Work Phone: [facility] 07-04-2022 20:47-0400 Diastolic blood pressure 72 mm[Hg] COL[employer]OR OF INTERNAL REVENUE Yudelka Lopez Work Phone: [facility] 07-04-2022 20:47-0400 Heart rate 83 /min COL[employer]OR OF [employer]NAL RE[employer]UE Yudelka Lopez Work Phone: [facility] 07-04-2022 20:47-0400 Respiratory rate 18 /min COL[employer]OR OF INTERNAL REVENUE Yudelka Lopez Work Phone: [facility] 07-04-2022 20:47-0400 SaO2% (BldA) [Mass fraction] 99 % COL[employer]OR OF INTERNAL REVENUE Yudelka Lopez Work Phone: [facility] 07-04-2022 20:47-0400 Systolic blood pressure 119 mm[Hg] COLLECTOR OF INTERNAL REVENUE Yudelka Lopez Work Phone: [facility] 07-04-2022 18:45-0400 Body height 160.02 cm COLLECTOR OF INTERNAL REVENUE Yudelka Lopez Work Phone: [facility] 07-04-2022 18:45-0400 Body weight 73.6 kg COLLECTOR OF INTERNAL REVENUEFamilia Lopez Work Phone: [facility] 06-01-2022 02:30-0400 Diastolic blood pressure 85 mm[Hg] COL[employer]OR OF INTERNAL REVENUE Yudelka Lopez Work Phone: [facility] 06-01-2022 02:30-0400 Heart rate 71 /min COL[employer]OR [employer]NAL [employer]UE Yudelka Lopez Work Phone: [facility] 06-01-2022 02:30-0400 Respiratory rate 16 /min COL[employer]OR OF INTERNAL REVENUE Yudelka Lopez Work Phone: [facility] 06-01-2022 02:30-0400 SaO2% (BldA) [Mass fraction] 100 % COL[employer]OR OF [employer]NAL REVENUE Yudelka Lopez Work Phone: [facility] 06-01-2022 02:30-0400 Systolic blood pressure 111 mm[Hg] COL[employer]OR OF INTERNAL REVENUE Yudelka Lopez Work Phone: [facility] 06-01-2022 01:29-0400 Body height 160.02 cm COL[employer]OR OF INTERNAL RE[employer]UE Yudelka Lopez Work Phone: [facility] 06-01-2022 01:29-0400 Body temperature 98 [degF] COL[employer]OR OF INTERNAL REVENUE Yudelka Lopez Work Phone: [facility] 06-01-2022 01:29-0400 Body weight 73.48 kg COLLECTOR OF INTERNAL REVENUE Yudelka Lopez Work Phone: [facility] 04-07-2022 12:02-0400 Body height 157.81 cm Yudelka Lopez Work Phone: [facility] Work Phone: 04-07-2022 12:02-0400 Body mass index (BMI) [Ratio] 30.42 kg/m2 Yudelka Lopez Work Phone: [facility] Work Phone: 04-07-2022 12:02-0400 Body surface area Derived from formula 1.77 m2 Yudelka Lopez Work Phone: [facility] Work Phone: 04-07-2022 12:02-0400 Body temperature 97.7 [degF] Yudelka Lopez Work Phone: [facility] Work Phone: 04-07-2022 12:02-0400 Body weight 75.75 kg Yudelka Lopez Work Phone: [facility] Work Phone: 04-07-2022 12:02-0400 Diastolic blood pressure 66 mm[Hg] Yudelka Lopez Work Phone: [facility] Work Phone: 04-07-2022 12:02-0400 Heart rate 73 /min Yudelka Lopez Work Phone: [facility] Work Phone: 04-07-2022 12:02-0400 Respiratory rate 16 /min Yudelka Lopez Work Phone: [facility] Work Phone: 04-07-2022 12:02-0400 SaO2% (BldA) [Mass fraction] 100 % Yudelka Lopez Work Phone: [facility] Work Phone: 04-07-2022 12:02-0400 Systolic blood pressure 137 mm[Hg] Yudelka Lopez Work Phone: [facility] Work Phone: 04-07-2022 12:02-0400 0 1 Yudelka Lopez Work Phone: [facility] Work Phone: Comment on above: [employer] 04-05-2022 00:01-0400 Diastolic blood pressure 63 mm[Hg] [employer] RE[employer]UE Yudelka Lopez Work Phone: [facility] 04-05-2022 00:01-0400 Heart rate 59 /min COL[employer]UE Yudelka Lopez Work Phone: [facility] 04-05-2022 00:01-0400 Respiratory rate 20 /min [employer] RE[employer]UE Yudelka Lopez Work Phone: [facility] 04-05-2022 00:01-0400 SaO2% (BldA) [Mass fraction] 100 % [employer]VENUE Yudelka Lopez Work Phone: [facility] 04-05-2022 00:01-0400 Systolic blood pressure 117 mm[Hg] COL[employer]OR [employer] INTERNAL REVENUE Yudelka Lopez Work Phone: [facility] 04-04-2022 17:01-0400 Body height 157.48 cm COL[employer]OR [employer] INTERNAL REVENUE Yudelka Lopez Work Phone: [facility] 04-04-2022 17:01-0400 Body mass index (BMI) [Ratio] 30.4 kg/m2 COLLECTOR OF INTERNAL REVENUEFamilia Jha John Work Phone: [facility] 04-04-2022 17:01-0400 Body temperature 98.7 [degF] COLLECTOR OF INTERNAL REVENUEFamilia Jha John Work Phone: [facility] 04-04-2022 17:01-0400 Body weight 75.6 kg COLLECTOR OF INTERNAL REVENUEFamilia Jha John Work Phone: [facility] 03-24-2022 11:38-0400 Body height 157.81 cm Unknown Unknown BR-Qmvfhlfdv-Pwr dman Work Phone: 03-24-2022 11:38-0400 Body mass index (BMI) [Ratio] 30.08 kg/m2 Unknown Unknown HO-Xqsmafasa-Sdfulbt Work Phone: 03-24-2022 11:38-0400 Body surface area Derived from formula 1.76 m2 Unknown Unknown NB-Yzjsozcmk-Zwiupnw Work Phone: 03-24-2022 11:38-0400 Body temperature 98.24 [degF] Unknown Unknown SC-Fvcnnkhaz-Pg idman Work Phone: 03-24-2022 11:38-0400 Body weight 74.9 kg Unknown Unknown ZP-Gssfabovt-Xiw dman Work Phone: 03-24-2022 11:38-0400 Diastolic blood pressure 78 mm[Hg] Unknown Unknown AP-Ewjsnmqqv-Ispoqqw Work Phone: 03-24-2022 11:38-0400 Heart rate 82 /min Unknown Unknown RF-Tyirzgwer-Gkb dman Work Phone: 03-24-2022 11:38-0400 Respiratory rate 16 /min Unknown Unknown PD-Kjwnabmzs-Si idman Work Phone: 03-24-2022 11:38-0400 SaO2% (BldA) [Mass fraction] 100 % Unknown Unknown BW-Pbfrqtxaw-Pgbpsrc Work Phone: 03-24-2022 11:38-0400 Systolic blood pressure 130 mm[Hg] Unknown Unknown TL-Hrfksdcko-Gcosozs Work Phone: 03-24-2022 11:38-0400 6 1 Unknown Unknown UO-Setogjnvk-Gmu dman Work Phone: Comment on above: [employer] 03-15-2022 21:05-0400 Diastolic blood pressure 67 mm[Hg] COL[employer]OR [employer]NAL RE[employer]UE Yudelka Lopez Work Phone: [facility] 03-15-2022 21:05-0400 Heart rate 72 /min COL[employer]UE Yudelka Lopez Work Phone: [facility] 03-15-2022 21:05-0400 Respiratory rate 18 /min COL[employer]OR [employer]NAL RE[employer]UE Yudelka Lopez Work Phone: [facility] 03-15-2022 21:05-0400 SaO2% (BldA) [Mass fraction] 100 % COL[employer]OR [employer] INTERNAL REVENUE Yudelka Lopez Work Phone: [facility] 03-15-2022 21:05-0400 Systolic blood pressure 127 mm[Hg] COL[employer]OR [employer]NAL REVENUE Yudelka Lopez Work Phone: [facility] 03-15-2022 19:22-0400 Body height 157.48 cm COLLECTOR [employer] INTERNAL REVENUE Yudelka Lopez Work Phone: [facility] 03-15-2022 19:22-0400 Body mass index (BMI) [Ratio] 30.9 kg/m2 COL[employer]OR [employer]NAL REVENUE Yudelka Lopez Work Phone: [facility] 03-15-2022 19:22-0400 Body temperature 98.6 [degF] COLLECTOR OF INTERNAL REVENUE Yudelka Lopez Work Phone: [facility] 03-15-2022 19:22-0400 Body weight 76.7 kg COLLECTOR OF INTERNAL REVENUE Yudelka Lopez Work Phone: [facility] 03-04-2022 01:04-0400 Body height 157.48 cm COLLECTOR OF INTERNAL REVENUE Yudelka Lopez Work Phone: [facility] 03-04-2022 01:04-0400 Body mass index (BMI) [Ratio] 30.4 kg/m2 COL[employer]OR [employer] INTERNAL REVENUE Yudelka Lopez Work Phone: [facility] 03-04-2022 01:04-0400 Body weight 75.55 kg COLLECTOR OF INTERNAL REVENUE Yudelka Lopez Work Phone: [facility] 03-04-2022 01:01-0400 Body temperature 98.1 [degF] COL[employer]OR OF INTERNAL REVENUE Yudelka Lopez Work Phone: [facility] 03-04-2022 01:01-0400 Diastolic blood pressure 80 mm[Hg] BETTY Lopez Work Phone: [facility] 03-04-2022 01:01-0400 Heart rate 81 /min BETTY Lopez Work Phone: [facility] 03-04-2022 01:01-0400 Respiratory rate 18 /min BETTY Lopez Work Phone: [facility] 03-04-2022 01:01-0400 SaO2% (BldA) [Mass fraction] 97 % BETTY Lopez Work Phone: [facility] 03-04-2022 01:01-0400 Systolic blood pressure 129 mm[Hg] BETTY Lopez Work Phone: [facility] Encounters Encounter Date Encounter Type Care Provider Facility Start: 02-11-2025 End: 02-11-2025 Bamboo flowsheet Priscilla SRIVASTAVA Work Phone: [facility] Start: 02-11-2025 End: 02-11-2025 Bamboo flowsheet Priscilla SRIVASTAVA Work Phone: [facility] Start: 02-11-2025 End: 02-11-2025 flow sheet Priscilla SRIVASTAVA Work Phone: [facility] Comment on above: Third trimester preg brandon; 32 weeks gestation of ; Nausea Start: 02-04-2025 End: 02-04-2025 Telephone encounter Josey Conkle [facility] [place] Start: 02-01-2025 End: 02-01-2025 Emergency department patient visit Jim Vega Facility:[facility] Start: 01-28-2025 End: 01-28-2025 External Result Encounter Priscilla SRIVASTAVA Work Phone: [facility] Unsolicited Start: 01-28-2025 End: 01-28-2025 External Result Encounter Priscilla SRIVASTAVA Work Phone: [facility] Unsolicited Start: 01-28-2025 End: 01-28-2025 Telephone encounter Josey Conkle [facility] [place] Comment on above: Thalassemia alpha ca rrier (Primary Dx); Family history of sickle cell trait; Family history of DVT; History of anemia; Choroid plexus cyst of fetus affecting care of mother, antepartum, fetus 1; Abnormal genetic test during ; Previous delivery affecting , antepartum; History of pre-eclampsia in prior , currently in first trimester Start: 01-28-2025 End: 01-28-2025 Patient encounter procedure Yudelka Lopez BETTY Work Phone: [facility] [place] Work Phone: Start: 01-28-2025 End: 01-28-2025 ambulatory Yudelka Lopez BETTY Work Phone: [facility] Work Phone: Start: 01-27-2025 End: 01-27-2025 Bamboo flowsheet Malcolm Helder DO Work Phone: [facility] Start: 01-27-2025 End: 01-27-2025 Bamboo flowsheet Malcolm Helder DO Work Phone: [facility] Start: 01-27-2025 End: 01-27-20[facility] Start: 01-27-2025 End: 01-27-2025 flow sheet Malcolm Helder DO Work Phone: [facility] Comment on above: Third trimester preg brandon; 30 weeks gestation of ; H/O pre-eclampsia in prior , currently ; H/O delivery, currently ; Request for sterilization Start: 01-27-2025 End: 01-27-2025 ambulatory MALCOLM HELDER Not Available Start: 01-14-2025 End: 01-14-2025 Bamboo flowsheet Reynold Leslie NP Work Phone: [facility] Start: 01-14-2025 End: 01-15-2025 Bamboo flowsheet Reynold Leslie NP Work Phone: [facility] Start: 01-14-2025 End: 01-15-2025 External Result Encounter Malcolm Helder DO Work Phone: [facility] Unsolicited Start: 01-14-2025 End: 01-14-2025 flow sheet Reynold Leslie [employer] Work Phone: [facility] Comment on above: Third trimester preg brandon; 28 weeks gestation of Start: 01-14-2025 End: 01-14-2025 ambulatory REYNOLD LESLIE Not Available Start: 01-13-2025 End: 01-13-2025 ambulatory MALCOLM R HELDER [facility] Start: 01-08-2025 End: 01-08-2025 Clinisync Result Encounter Malcolm Helder DO Work Phone: [facility] Unsolicited Start: 01-08-2025 End: 01-08-2025 Clinisync Result Encounter Malcolm Helder DO Work Phone: [facility] Unsolicited Start: 01-06-2025 End: 01-06-2025 Clinisync Result Encounter Priscilla SRIVASTAVA Work Phone: [facility] Unsolicited Start: 01-06-2025 End: 01-06-2025 Clinisync Result Encounter Priscilla SRIVASTAVA Work Phone: [facility] Unsolicited Start: 12-30-2024 End: 12-30-2024 Bamboo flowsheet Malcolm Helder DO Work Phone: [facility] Start: 12-30-2024 End: 12-31-2024 Bamboo flowsheet Malcolm Helder DO Work Phone: [facility] Start: 12-30-2024 End: 12-31-2024 External Result Encounter Malcolm Helder DO Work Phone: [facility] Unsolicited Start: 12-30-2024 End: 12-30-2024 flow sheet Malcolm Helder DO Work Phone: [facility] Comment on above: Second trimester pre gnancy; 26 weeks gestation of ; Seen in emergency room; Exposure to STD; HSV (herpes simplex virus) infection Start: 12-30-2024 End: 12-30-2024 ambulatory MALCOLM LAMASO Not Available Start: 12-16-2024 End: 12-16-2024 [facility] Start: 12-12-2024 End: 12-12-2024 Telemedicine consultation with patient Henny Montgomery MD Work Phone: [facility] Comment on above: Thalassemia alpha ca rrier (Primary Dx); Abnormal genetic test during ; Family history of sickle cell trait; Family history of DVT Start: 12-12-2024 End: 12-12-2024 ambulatory [facility] Start: 12-09-2024 End: 12-09-2024 Orders Only Natalie Díaz RN [facility] Comment on above: Thalassemia alpha ca rrier (Primary Dx) Start: 12-08-2024 End: 12-08-2024 Documentation procedure Henny Montgomery MD Work Phone: [facility] Start: 12-08-2024 End: 12-08-2024 Telephone encounter Josey Valentine [facility] Start: 12-02-2024 End: 12-02-2024 ambulatory PRISCILLA WARREN Not Available Start: 11-21-2024 End: 11-21-2024 Office consultation new/estab patient 60 min Henny Montgomery MD Work Phone: [facility] Comment on above: Previous de livery affecting , antepartum (Primary Dx); History of pre-eclampsia in prior , currently in first trimester; History of anemia; Choroid plexus cyst of fetus affecting care of mother, antepartum, fetus 1 Start: 11-21-2024 End: 11-21-2024 Orders Only Priscilla Haider LPN [facility] Comment on above: History of anemia (P rimary Dx) Start: 11-18-2024 End: 11-18-2024 Bamboo flowsheet Naresh A Felter COL[employer]OR OF [employer] REVENUE-[employer]NAGER [employer]ILITY Work Phone: [facility] Start: 11-18-2024 End: 11-18-2024 Bamboo flowsheet Naresh A Felter [employer]OR [employer]UE-MANAGER [employer]ILITY Work Phone: [facility] Start: 11-18-2024 End: 11-18-2024 Office outpatient visit 15 minutes Naresh Donahue Felter COL[employer]OR [employer]UE-MANAGER [employer]ILITY Work Phone: [facility] Comment on above: Acne vulgaris (Prima ry Dx); Other atopic dermatitis Start: 11-18-2024 End: 11-18-2024 ambulatory NARESH A FELTER Not Available Start: 11-10-2024 Registered Recurring Yudelka ware COL[employer]OR OF INTERNAL REVENUE [facility] Work Phone: Start: 11-10-2024 End: 11-10-2024 ambulatory Yudelka Lopez COL[employer]OR OF INTERNAL REVENUE Work Phone: [facility] Work Phone: Start: 11-10-2024 End: 11-10-2024 Patient encounter procedure Yduelka Lopez COLLECTOR OF INTERNAL REVENUE Work Phone: [facility] Work Phone: Start: 11-07-2024 End: 11-07-2024 External Result Encounter Kelly Hough NP Other Phone: [facility] Unsolicited Start: 11-07-2024 End: 11-07-2024 External Result Encounter Kelly Hough NP Other Phone: [facility] Unsolicited Start: 11-04-2024 End: 11-04-2024 Patient encounter procedure Malcolm Helder DO Work Phone: [facility] Comment on above: 18 weeks gestation o f ; LGSIL of cervix of undetermined significance; Other headache syndrome; Mood disorder (CMS/HCC) Start: 11-04-2024 End: 02-18-2025 ambulatory MALCOLM HELDER Not Available Start: 10-14-2024 End: 10-14-2024 Bamboo flowsheet Priscilla SRIVASTAVA Work Phone: [facility] Start: 10-14-2024 End: 10-20-2024 Bamboo flowsheet Priscilla SRIVASTAVA Work Phone: [facility] Start: 10-14-2024 End: 10-20-2024 Clinisync Result Encounter Priscilla SRIVASTAVA Work Phone: [facility] External Department Unsolicited Start: 10-14-2024 End: 10-14-2024 Patient encounter procedure Priscilla SRIVASTAVA Work Phone: [facility] Start: 10-14-2024 End: 10-14-2024 Periodic preventive med est patient 18-39 yrs Priscilla SRIVASTAVA Work Phone: [facility] Comment on above: 15 weeks gestation o f ; Second trimester ; Well woman exam with routine gynecological exam; Screening, , for anatomic survey; STD exposure; Vaginal discharge Start: 10-14-2024 End: 10-14-2024 ambulatory PRISCILLA WARREN Not Available Start: 09-11-2024 End: 09-11-2024 Bamboo flowsheet Malcolm Helder DO Work Phone: [facility] Start: 09-11-2024 End: 09-11-2024 Bamboo flowsheet Malcolm Helder DO Work Phone: [facility] Start: 09-11-2024 End: 09-11-2024 Clinisync Result Encounter Malcolm Helder DO Work Phone: [facility] External Department Unsolicited Start: 09-11-2024 End: 09-11-2024 ambulatory Malcolm Helder Facility:[facility] Start: 09-11-2024 End: 09-11-2024 Departed Referred Yudelka Lopez APRN Work Phone: [facility] Start: 09-11-2024 End: 09-11-2024 flow sheet Malcolm Helder DO Work Phone: [facility] Comment on above: 10 weeks gestation o f ; First trimester ; Other headache syndrome; Nausea and vomiting during ; Thyroid disease affecting ([facility]/HCC) Start: 09-11-2024 End: 09-11-2024 ambulatory MALCOLM HELDER Not Available Start: 08-26-2024 End: 08-26-2024 Office outpatient visit 5 minutes [facility] Helder Nurse [facility] Comment on above: GA: 8w2d Start: 08-26-2024 End: 08-26-2024 ambulatory PRISCILLA WARREN Not Available Start: 08-06-2024 End: 08-08-2024 Evaluation and management of inpatient Yudelka Lopez APRN Work Phone: [facility]-[address] [place] [address] Work Phone: Start: 08-06-2024 ambulatory Julián Naqvi Facility:[facility] Start: 08-04-2024 End: 08-04-2024 Clinisync Result Encounter [...] 07-14-2024 End: 07-14-2024 Emergency department patient visit COL[employer]OR [employer]NAL RE[employer]UE Yudelka Lopez Work Phone: [facility] Work Phone: Start: 07-14-2024 End: 07-14-2024 ambulatory [facility] Work Phone: Start: 07-14-2024 End: 07-14-2024 Patient encounter procedure [facility] Work Phone: Start: 02-21-2024 End: 02-21-2024 Emergency department patient visit [facility] Start: 02-21-2024 Encounter for gynecological examination (general) (routine) without abnormal findings [facility] Start: 02-19-2024 End: 02-19-2024 ambulatory MALCOLM PENDLETON Not Available Start: 12-10-2023 End: 12-11-2023 ambulatory Malagon Talal [place] Facility:[facility] Start: 12-10-2023 End: 12-10-2023 Patient encounter [facility] Start: 09-28-2023 End: 09-28-2023 ambulatory COLLECTOR OF INTERNAL REVENUE Yudelka Lopez Work Phone: [facility] Work Phone: Start: 09-28-2023 End: 09-28-2023 Registered Recurring BETTY Lopez [facility] Phone[facility] Work Phone: Start: 09-27-2023 End: 09-27-2023 ambulatory BETTY Lopez Work Phone: [facility] Work Phone: Start: 09-27-2023 End: 09-27-2023 Departed Referred BETTY Lopez Work Phone: [facility] Start: 09-27-2023 Registered Recurring BETTY Lopez Work Phone: [facility] Work Phone: Start: 06-27-2023 End: 06-27-2023 ambulatory BETTY Lopez Work Phone: [facility] Work Phone: Start: 06-27-2023 End: 06-27-2023 Registered Recurring BETTY Lopez Work Phone: [facility] Work Phone: Start: 06-14-2023 Registered Recurring BETTY Lopez Work Phone: [facility] Work Phone: Start: 06-14-2023 End: 06-14-2023 ambulatory BETTY Lopez Work Phone: [facility] Work Phone: Start: 06-14-2023 End: 06-14-2023 Patient encounter procedure BETTY Lopez Work Phone: [facility] [place] Work Phone: Start: 06-04-2023 End: 06-04-2023 ambulatory Marvin Po Other [employer] Other Start: 06-04-2023 Office outpatient visit 15 minutes Marvin Sheridan [facility] Start: 04-24-2023 End: 04-25-2023 ambulatory Kelly Ryanmagnoliacristel Facility:[facility] Start: 04-24-2023 End: 04-24-2023 Patient encounter procedure Lex Elizabeth [facility] General Surgery [place] Start: 04-03-2023 ambulatory Lex Elizabeth Facilit y:[facility] Start: 03-21-2023 End: 03-21-2023 ambulatory BETTY Lopez Work Phone: [facility] Work Phone: Start: 03-21-2023 End: 03-21-2023 Registered Recurring BETTY Lopez Work Phone: [facility] Work Phone: Start: 03-14-2023 End: 03-14-2023 ambulatory COLLECTOR OF INTERNAL REVENUE Yudelka Lopez Work Phone: [facility] Work Phone: Start: 03-14-2023 End: 03-14-2023 Patient encounter procedure BETTY Lopez Work Phone: [facility] [place] Work Phone: Start: 02-07-2023 Registered Recurring COLLECTOR OF INTERNAL REVENUE Howard donahue John Work Phone: [facility] Work Phone: Start: 02-06-2023 End: 02-06-2023 Emergency department patient visit BETTY Lopez Work Phone: [facility]-Emergency Room Work Phone: Start: 01-29-2023 End: 01-29-2023 ambulatory COLLECTOR OF INTERNAL REVENUE Yudelka Lopez Work Phone: [facility] Work Phone: Start: 01-29-2023 End: 01-29-2023 Patient encounter procedure BETTY Lopez Work Phone: [facility] [place] Work Phone: Start: 01-25-2023 Registered Recurring BETTY donahue Lopez Work Phone: [facility] Work Phone: Start: 01-24-2023 End: 01-24-2023 ambulatory COLLECTOR OF INTERNAL REVENUE Yudelka Lopez Work Phone: [facility] Work Phone: Start: 01-24-2023 End: 01-24-2023 Discharged Recurring BETTY Lopez Work Phone: [facility]-Physical Therapy [facility] Start: 12-25-2022 End: 12-25-2022 ambulatory COLLECTOR OF INTERNAL REVENUE Yudelka Paulino Lopez Work Phone: [facility] Work Phone: Start: 12-25-2022 End: 12-25-2022 Patient encounter procedure BETTY Lopez Work Phone: [facility] [place] Work Phone: Start: 12-25-2022 Registered Recurring BETTY Lopez Work Phone: [facility]-Physical Therapy [address] Start: 12-22-2022 End: 12-22-2022 ambulatory Imad Asaad Other [employer] Other Start: 12-22-2022 Telephone encounter Imad Asaad [facility] Start: 12-21-2022 End: 12-21-2022 ambulatory Imad Asaad Other [employer] Other Start: 12-21-2022 [facility] visit new patient Imad Asaad [facility] Start: 12-07-2022 End: 12-07-[address] DOCTOR MARI Facility:[facility] Start: 11-29-2022 End: 11-30-[address] MALCOLM PENDLETON . Facility:[facility] Start: 11-28-2022 End: 11-28-2022 Emergency department patient visit BETTY Jha Lopez Work Phone: [facility]-Emergency Room Work Phone: Start: 11-01-2022 Registered Recurring BETTY Lopez Work Phone: [facility] Work Phone: Start: 10-12-2022 End: 10-12-2022 ambulatory COLLECTOR OF INTERNAL REVENUE Yudelka Lora John Work Phone: [facility] Work Phone: Start: 10-12-2022 End: 10-12-2022 Patient encounter procedure BETTY Lopez Work Phone: [facility] [place] Work Phone: Start: 10-10-2022 Registered Recurring BETTY Lopez Work Phone: [facility] Work Phone: Start: 10-02-2022 End: 10-02-2022 ambulatory COLLECTOR OF INTERNAL REVENUE Yudelka Lopez Work Phone: [facility] Work Phone: Start: 10-02-2022 End: 10-02-2022 Patient encounter procedure BETTY Lopez Work Phone: [facility]Ultrasound [place] Work Phone: Start: 09-21-2022 End: 09-21-2022 Emergency department patient visit BETTY Lopez Work Phone: [facility]-Emergency Room Work Phone: Start: 09-15-2022 End: 09-15-2022 ambulatory COLLECTOR OF INTERNAL REVENUEFamilia Lopez Work Phone: [facility] Work Phone: Start: 09-15-2022 End: 09-15-2022 Patient encounter procedure BETTY Lopez Work Phone: [facility] [place] Work Phone: Start: 08-05-2022 End: 08-06-[address] MALCOLM PENDLETON . Facility:[facility] Start: 07-28-2022 End: 07-29-[address] MALCOLM PENDLETON . Facility:[facility] Start: 07-04-2022 End: 07-04-2022 Emergency department patient visit BETTY Lopez Work Phone: [facility]-Emergency Room Start: 07-03-2022 End: 07-03-[address] MALCOLM PENDLETON . Facility:[facility] Start: 06-01-2022 End: 06-01-2022 Emergency department patient visit BETTY Lopez Work Phone: [facility]-Emergency Room Start: 04-21-2022 Patient encounter procedure Yudelka Lopez Work Phone: [facility] Work Phone: Start: 04-21-2022 Postop follow up vis it related to original px Yudelka Sonia Lopez Work Phone: [facility] Work Phone: Start: 04-18-2022 End: 04-19-[address] DOCTOR MARI Facility:[facility] Start: 04-17-2022 Chart Update Yudelka Scott Lopez Work Phone: [facility] Work Phone: Start: 04-14-2022 End: 04-14-2022 Departed Referred COLLECTOR OF INTERNAL REVENUEFamilia Lopez Work Phone: [facility] Start: 04-11-2022 End: 04-11-[address] REBECCA GALVEZ Facility:[facility] Start: 04-07-2022 Postop follow up vis it related to original px Yudelka Lopez Work Phone: [facility] Work Phone: Start: 04-04-2022 End: 04-05-2022 Emergency department patient visit COLLECTOR OF INTERNAL REVENUEFamilia Lopez Work Phone: [facility]Emergency [facility] Start: 04-04-2022 AUDIT Yudelka Lopez Work Phone: [facility] Work Phone: Start: 03-31-2022 End: 03-31-2022 Patient encounter procedure COLLECTOR OF INTERNAL REVENUEFamilia Lopez Work Phone: [facility] COVID Testing Start: 03-24-2022 Patient encounter procedure Unknown Unknown TZ-Xyzkktrdi-Kisfpjp Work Phone: Start: 03-15-2022 End: 03-15-2022 Emergency department patient visit BETTY Lopez Work Phone: [facility]-Emergency Room Start: 03-04-2022 End: 03-04-2022 Emergency department patient visit BETTY Lopez Work Phone: [facility]-Emergency Room Start: 02-20-2022 End: 02-20-[address] ALFIE MATTHEWS Facility:[facility] Start: 02-02-2022 End: 02-03-[address] ALFIE MATTHEWS Facility:[facility] Start: 01-11-2022 End: 01-12-[address] ALFIE MATTHEWS Facility:[facility] Procedures Date Procedure Procedure Detail Performing Clinician Start: 02-11-2025 Urnls dip stick/tablet rgnt non-auto w/o micrscp Priscilla SRIVASTAVA Work Phone: Start: 01-14-2025 RECURRENT VAGINITIS (HTRX) Malcolm Helder D O Work Phone: Start: 01-14-2025 Urnls dip stick/tablet rgnt non-auto w/o micrscp Reynold Leslie NP Work Phone: Start: 01-08-2025 ALL CBC WITH AUTO DIFF Malcolm Helder DO Work Phone: Start: 01-06-2025 ALL CBC WITH AUTO DIFF Priscilla SRIVASTAVA Work Phone: Start: 12-30-2024 RECURRENT VAGINITIS (HTRX) Malcolm Helder D O Work Phone: Start: 11-07-2024 Complete blood count with white cell differential, automated Kelly Hough [employer] Other Phone: Start: 11-04-2024 Urnls dip stick/tablet rgnt non-auto w/o micrscp Malcolm Helder DO Work Phone: Start: 10-14-2024 Urnls dip stick/tablet rgnt non-auto w/o micrscp Priscilla SRIVASTAVA Work Phone: Start: 10-14-2024 IGP,APTIMA HPV,AGE GDLN Priscilla SRIVASTAVA Work Phone: Start: 10-14-2024 Microscopic observation [Identifier] in Cervix by Cyto stain Hneny Montgomery MD Work Phone: Start: 09-11-2024 Urine [...] 07-14-2024 SARS-CoV-2, Influenza & RSV (PCR) BETTY Donahue licha Lopez Work Phone: Start: 07-14-2024 Viral nucleic acid assay Yudelka Lopez AP RN Work Phone: Start: 07-14-2024 Computed tomography of abdomen and pelvis with contrast BETTY Jha Lopez Work Phone: Start: 03-14-2023 MRI of cervical spine without contrast BETTY Yudelka Lopez Work Phone: Start: 01-29-2023 Radionuclide gastric emptying study BETTY Yudelka Lopez Work Phone: Start: 11-28-2022 X-ray of left foot COLLECTOR OF INTERNAL REVENUE Yudelka Lopez Work Phone: Start: 10-02-2022 US scan of thyroid COLLECTOR OF INTERNAL REVENUE Yudelka Lopez Work Phone: Start: 10-02-2022 X-ray of cervical spine COLLECTOR OF INTERNAL REVENUE Yudelka Parminder christina Work Phone: Start: 09-21-2022 SARS-CoV-2, Influenza & RSV (PCR) BETTY nguyenkita Lopez Work Phone: Start: 09-21-2022 Plain chest [...] , antepartum Henny Montgomery MD Work Phone: H/O: section Previous c esarean delivery affecting , antepartum Benitanarinder Coppola DIESEL AUTOMOTIVE TECHNICIAN None (qualifier value) Lex Elizabeth Plan of Treatment Date Care Activity Detail Author Start: 10-14-2027 Screening for malign ant neoplasm of cervix [facility] Start: 01-28-2026 End: 01-28-2026 US MFM with or without consult US [...] first trimester Expected: 01/28/2026 (Approximate), Expires: 01/28/2026 [employer] Work Phone: Comment on above: Expected: 01/28/2026 (Approximate), Expires: 01/28/2026 Start: 01-09-2026 DTaP,Tdap and Td Vac cines (3 - Td or Tdap) DTaP,Tdap and Td Vaccines (3 - Td or Tdap) [facility] Start: 11-21-2025 Adult BMI Screening Adult BMI Screen ing [facility] Start: 11-21-2025 Tobacco Screening Tobacco Screening [facility] Start: 11-19-2025 End: 11-19-2025 Patient encounter procedure 11/19/2025 10:50 AM EST Office Visit [facility] [address] [place] [id number] Naresh Chung APRN-MANAGER UTILITY [address] [place] [address] [facility] Start: 05-18-2025 Influenza vaccination Influenza Vacc ine [facility] Start: 02-26-2025 End: 02-26-2025 Patient encounter procedure 02/26/2025 2:15 PM EDT Appointment [facility] [place] [address] [place] [phone] [facility] [place] [facility] Start: 02-24-2025 End: 02-24-2025 Patient encounter procedure 02/24/2025 11:40 AM EDT Routine [facility] [address] [place] [phone] Malcolm Pendleton DO [address] [place] [address] [facility] Start: 02-11-2025 End: 02-11-2025 Patient encounter procedure 02/11/2025 3:15 PM EDT Appointment [facility] [place] [address] [place] [phone] [facility] [place] Start: 02-11-2025 End: 02-11-2025 Patient encounter procedure [facility] Comment on above: Arrived Start: 02-03-2025 End: 02-03-2025 Patient encounter procedure 02/03/2025 9:15 AM EDT Appointment [facility] - Ultrasound [address] [place] [address] [facility] Start: 01-27-2025 End: 01-27-2025 Patient encounter procedure 01/27/2025 2:15 PM EDT Appointment [facility] [address] [place] [address] [facility] Start: 01-27-2025 End: 07-30-2025 US biophysical profile w non stress test US biophysical profile w non stress test Imaging Routine H/O pre-eclampsia in prior , currently H/O delivery, currently Expected: 01/27/2025 (Approximate), Expires: 07/30/2025 [facility] Work Phone: Comment on above: Expected: 01/27/2025 (Approximate), Expires: 07/30/2025 Start: 01-27-2025 End: 01-27-2025 Patient encounter procedure [facility] Comment on above: Arrived Start: 01-14-2025 End: 01-14-2025 Patient encounter procedure [facility] Comment on above: Arrived Start: 01-13-2025 End: 01-13-2025 Patient encounter procedure 01/13/2025 9:15 AM EDT Appointment [facility] [address] [place] [address] [facility] Start: 12-30-2024 End: 12-30-2024 Patient encounter procedure [facility] Comment on above: Arrived Start: 12-16-2024 End: 12-16-2024 Patient encounter procedure 12/16/2024 9:15 AM EDT Appointment [facility] [address] [place] [address] [facility] Ultras[facility] Start: 12-12-2024 End: 12-12-2024 Telemedicine consultation with patient 12/12/2024 9:00 AM EDT Telemedicine [facility] at [facility] [address] [place] [address] Henny Montgomery MD [address] [facility] [address] [place] [address] Jo Sue, [facility] [address] [facility] [place] [address] [facility] Start: 12-02-2024 End: 12-02-2024 Patient encounter procedure 12/02/2024 9:30 AM EDT Routine [facility] [address] [place] [phone] Priscilla Warren PA [address] [place] [address] [facility] Start: 11-21-2024 End: 11-21-2025 US MFM with or without consult US MFM with or without consult Imaging Routine History of anemia Expected: 11/21/2024, Expires: 11/21/2025 [facility] Work Phone: Comment on above: Expected: 11/21/2024 , Expires: 11/21/2025 Start: 11-18-2024 End: 11-18-2024 Patient encounter procedure [facility] Comment on above: Arrived Start: 11-11-2024 End: 11-11-2024 Patient encounter procedure 11/11/2024 11:20 AM EST Routine [facility] [address] [place] [phone] Malcolm Pendleton DO [address], [place] [id number] [facility] Start: 11-06-2024 End: 11-06-2024 Patient encounter procedure 11/06/2024 10:55 AM EST Office [facility] [address] [place] [phone] Naresh Chung, COLLECTOR OF INTERNAL REVENUE-MANAGER UTILITY [address] [place] [address] [facility] Start: 10-14-2024 End: 12-12-2024 Alpha fetoprotein, maternal Alpha fetoprotein, maternal Lab Routine Screening, , for anatomic survey Expected: 10/14/2024 (Approximate), Expires: 12/12/2024 [facility] Comment on above: Expected: 10/14/2024 (Approximate), Expires: 12/12/2024 Start: 10-14-2024 End: 10-14-2025 US for US OB 14+ weeks anatomy scan Imaging Routine Screening, , for anatomic survey Expected: 10/14/2024, Expires: 10/14/2025 [facility] Comment on above: Expected: 10/14/2024 , Expires: 10/14/2025 Start: 10-14-2024 End: 10-14-2024 Patient encounter procedure [facility] Comment on above: Arrived Start: 09-11-2024 End: 09-11-2024 Patient encounter procedure [facility] Comment on above: Arrived Start: 08-26-2024 End: 08-26-2025 ABO/Rh ABO/Rh Lab Routine Missed menses , unspecified gestational age Expected: 08/26/2024 (Approximate), Expires: 08/26/2025 [facility] Comment on above: Expected: 08/26/2024 (Approximate), [...] Missed menses Expected: 08/26/2024 (Approximate), Expires: 08/26/2025 [facility] Comment on above: Expected: 08/26/2024 (Approximate), Expires: 08/26/2025 Start: 08-26-2024 End: 08-26-2024 ambulatory 08/26/2024 9:30 AM EST Initial [facility] [address] [place] [address] [facility] Start: 08-26-2024 End: 08-26-2024 Professional / ancillary services management 08/26/2024 9:00 AM EST Ancillary Procedure [facility] [address] [place] [address] [facility] Start: 08-07-2024 Hospital admission [facility] Start: 08-07-2024 [facility] Start: 05-18-2024 Influenza vaccination Influenza Vacc ine [facility] Start: 04-23-2024 [facility] Start: 04-04-2024 [facility] Start: 03-31-2024 [facility] Start: 02-22-2024 [facility] Start: 01-30-2024 [facility] Start: 11-05-2023 [facility] Start: 10-10-2023 [facility] Start: 08-07-2023 [facility] Start: 07-24-2023 [facility] Start: 02-07-2023 [facility] Start: 01-31-2023 [facility] Start: 01-26-2023 End: 01-26-2023 [facility] Start: 01-24-2023 End: 01-25-2023 [facility] Start: 11-28-2022 X-ray of left foot XR foot LT min 3V * [facility] Start: 11-28-2022 XR Foot - left GE 3 Views [facility] Start: 11-01-2022 [facility] Start: 10-24-2022 End: 10-25-2022 [facility] Start: 10-17-2022 [facility] Start: 10-13-2022 [facility] Start: 10-12-2022 End: 10-13-2022 [facility] Start: 10-10-2022 [facility] Start: 04-21-2022 POV, Provider: Sly Crocker, Status: Pen, Time: 10:30 AM POV, Provider: Sly Crocker, Status: Pen, Time: 10:30 AM [facility] Work Phone: Start: 2010 Adult BMI Follow Up Plan Adult BMI Follow Up Plan [facility] Start: 2004 Depression Screening Depression Scre ening [facility] Albumin [Mass/volume ] in Serum or Plasma [facility] Albumin/Globulin ratio [facility] Bacteria identified in Urine by Culture Urine culture Microbiology Routine Missed menses Ordered: 08/26/2024 [facility] Comment on above: Ordered: 08/26/2024 Calprotectin [Mass/m ass] in Stool [facility] CBC W Auto Different ial panel - Blood CBC and differential Lab Routine Missed menses , unspecified gestational age Ordered: 08/26/2024 [facility] Comment on above: Ordered: 08/26/2024 CHLAMYDIA TRACHOMATI S (GENITO/STI) CHLAMYDIA TRACHOMATIS (GENITO/STI) Lab Routine STD exposure Vaginal discharge Ordered: 10/14/2024 [facility] Comment on above: Ordered: 10/14/2024 Comprehensive metabo lic 2000 panel - Serum or Plasma [facility] Comprehensive metabo lic 1999 panel - Serum or Plasma [facility] Comprehensive metabo lic 1999 panel - Serum or Plasma [facility] Comprehensive metabo lic 1999 panel - Serum or Plasma [facility] Comprehensive metabo lic 1999 panel - Serum or Plasma Comprehensive metabolic panel Lab Routine 11/07/2024 9:38 AM EST [facility] Work Phone: Copper measurement [facility] Cytology Cervical or vaginal smear or scraping study Pap Smear Pathology and Cytology Routine Well woman exam with routine gynecological exam Ordered: 10/14/2024 [facility] Comment on above: Ordered: 10/14/2024 Electrophoresis: [id number] [facility] Electrophoresis: [id number] [facility] Electrophoresis: beta-globulin [facility] Electrophoresis: manohar ma globulin [facility] Endomysial antibody IgA level [facility] Erythrocyte sediment ation rate by Photometric method [facility] Erythropoietin (EPO) [Units/volume] in Serum or Plasma [facility] Ferritin [Mass/volum e] in Serum or Plasma [facility] Gliadin peptide IgA Ab [Units/volume] in Serum [facility] Gliadin peptide IgG Ab [Units/volume] in Serum [facility] Globulin [Mass/volum e] in Serum [facility] Hemoglobin A1c/Hemoglobin.total in Blood Hemoglobin A1c Lab Routine Missed menses , unspecified gestational age Ordered: 08/26/2024 [facility] Comment on above: Ordered: 08/26/2024 Hepatitis B virus gallagher rface Ag [Presence] in Serum or Plasma by Immunoassay Hepatitis B surface antigen Lab Routine Missed menses , unspecified gestational age Ordered: 08/26/2024 [facility] Comment on above: Ordered: 08/26/2024 Hepatitis C virus Ab [Presence] in Serum or Plasma by Immunoassay Hepatitis C antibody Lab Routine Missed menses , unspecified gestational age Ordered: 08/26/2024 [facility] Comment on above: Ordered: 08/26/2024 HIV 1+2 Ab+HIV1 p24 Ag [Presence] in Serum or Plasma by Immunoassay [facility] HIV-1/HIV-2 antigen/antibody combination immunoassay HIV-1 and HIV-2 antibodies Lab Routine Missed menses , unspecified gestational age Ordered: 08/26/2024 [facility] Comment on above: Ordered: 08/26/2024 Human papilloma viru s DNA [Presence] in Unspecified specimen by Probe with amplification HPV DNA probe, amplified Microbiology Routine Well woman exam with routine gynecological exam Ordered: 10/14/2024 [facility] Comment on above: Ordered: 10/14/2024 IgA [Mass/volume] in Serum or Plasma [facility] IgA [Mass/volume] in Serum or Plasma [facility] IgG [Mass/volume] in Serum or Plasma [facility] IgM [Mass/volume] in Serum or Plasma [facility] Iron and Iron bindin g capacity panel - Serum or Plasma Iron and TIBC Lab Routine 11/07/2024 9:38 AM EST [facility] Russell light chains.f ree [Mass/volume] in Serum [facility] Russell light chains.free/Lambda light chains.free [Mass Ratio] in Serum [facility] Lactate dehydrogenas e [Enzymatic activity/volume] in Unspecified specimen [facility] Lambda light chains. free [Mass/volume] in Serum or Plasma [facility] Neisseria gonorrhoea e DNA [Presence] in Unspecified specimen by HIRAM with probe detection Neisseria gonorrhea DNA probe, direct Lab Routine STD exposure Vaginal discharge Ordered: 10/14/2024 [facility] Comment on above: Ordered: 10/14/2024 Patient Education [facility] Work Phone: Patient referral [facility] Work Phone: Protein [Mass/volume ] in Serum or Plasma [facility] Reagin Ab [Presence] in Serum by RPR [facility] Reagin Ab [Presence] in Serum by RPR RPR Lab Routine Missed menses , unspecified gestational age Ordered: 08/26/2024 [facility] Comment on above: Ordered: 08/26/2024 Rubella antibody, IgG Rubella an tibody, IgG Lab Routine Missed menses , unspecified gestational age Ordered: 08/26/2024 [facility] Comment on above: Ordered: 08/26/2024 Serum immunofixation [facility] SURESWAB(R) ADVANCED VAGINITIS PLUS, TMA SURESWAB(R) ADVANCED VAGINITIS PLUS, TMA Pathology and Cytology Routine STD exposure Vaginal discharge Ordered: 10/14/2024 [employer] Work Phone: Comment on above: Ordered: 10/14/2024 Thyroglobulin Ab [Units/volume] in Serum or Plasma [facility] Thyroperoxidase Ab [Units/volume] in Serum or Plasma [facility] [facility] Thyrotropin [Units/v olume] in Serum or Plasma TSH Lab Routine Thyroid disease affecting (CMS/HCC) Ordered: 09/11/2024 [facility] Comment on above: Ordered: 09/11/2024 Thyrotropin receptor Ab [Units/volume] in Serum [facility] Thyroxine (T4) free [Mass/volume] in Serum or Plasma T4, free Lab Routine Thyroid disease affecting (CMS/HCC) [facility]: [facility]/11/2024 [facility] Work Phone: Comment on above: Ordered: 09/11/2024 Tissue transglutamin ase IgA Ab [Units/volume] in Serum [facility] Tissue transglutamin ase IgG Ab [Units/volume] in Serum [facility] Transferrin [Mass/vo lume] in Serum or Plasma Transferrin Lab Routine 01/28/2025 8:32 AM EDT [facility] Work Phone: [facility] Immunizations Immunization Date Immunization Notes Care Provider Iker castro 09-01-2021 influenza virus vaccine, unspecified formulation Malagon Sarmini [facility] 01-10-2016 tetanus toxoid, reduced diphtheria toxoid, and acellular pertussis vaccine, adsorbed Malagon Sarmini [facility] 09-30-2009 hepatitis A vaccine, unspecified formulation Malagon Sarmini [facility] 09-30-2009 hepatitis B vaccine, pediatric or pediatric/adolescent dosage Malagon Sarmini [facility] 05-27-2009 hepatitis B vaccine, pediatric or pediatric/adolescent dosage Malagon Sarmini [facility] 03-22-2009 hepatitis A vaccine, unspecified formulation Malagon Sarmini [facility] 03-22-2009 hepatitis B vaccine, pediatric or pediatric/adolescent dosage Malagon Sarmini [facility] 03-22-2009 measles, mumps and rubella virus vaccine Malagon Sarmini [facility] 03-22-2009 meningococcal ACWY vaccine, unspecified formulation Malagon Sarmini [facility] 03-22-2009 tetanus toxoid, reduced diphtheria toxoid, and acellular pertussis vaccine, adsorbed Malagon Sarmini [facility] NEGATED: Highlighted row has not occurred!12-07-2023 influenza virus vaccine, unspecified formulation Malagon Sarmini [facility] Payers Date Payer Category Payer Medicaid [id number] 2024 Medicaid [id number] 2023 Self-pay [id number] 2022 Managed Care Other (unspecified) [employer] [id number] .[id number] 2022 Private Health Insurance 1.2 .[id number] .[id number] 2022 Unknown [id number] 1992 Unknown [id number] 2.16.840.1.294793.3.579.2 .593 1992 Unknown [id number] 2.16.840.1.672789.3.579.2 .593 1992 Unknown [id number] 2.16.840.1.742159.3.579.2 .593 1992 Unknown [id number] 2.16.840.1.617978.3.579.2 .593 1992 Unknown [id number] 2.16.840.1.968308.3.579.2 .593 1992 Unknown [id number] 2.16.840.1.823806.3.579.2 .593 1992 Unknown [id number] 2.16.840.1.782357.3.579.2 .593 1992 Unknown [id number] 2.16.840.1.295863.3.579.2 .593 1992 Unknown [id number] 2.16.840.1.696324.3.579.2 .593 1992 Unknown [id number] 2.16.840.1.490491.3.579.2 .593 1992 Unknown [id number] 2.16.840.1.665412.3.579.2 .727 1992 Unknown [id number] 2.16.840.1.621242.3.579.2 .727 1992 Unknown [id number] 2.16.840.1.415483.3.579.2 .1285 1992 Unknown [id number] 2.16.840.1.709715.3.579.2 .1285 1992 Unknown [id number] 2.16.840.1.551980.3.579.2 .1285 1992 Unknown [id number] 2.16.840.1.026053.3.579.2 .1258 1992 Unknown [id number] 2.16.840.1.078771.3.579.2 .1258 1992 Unknown [id number] 2.16.840.1.311114.3.579.2 .1258 1992 Unknown [id number] 2.16.840.1.205529.3.579.2 .1258 1992 Unknown [id number] 2.16.840.1.155433.3.579.2 .1258 1992 Unknown [id number] 2.16.840.1.875125.3.579.2 .1258 1992 Unknown [id number] 2.16.840.1.943297.3.579.2 .1258 1992 Unknown [id number] 2.16.840.1.068843.3.579.2 .1258 1992 Unknown [id number] 2.16.840.1.843061.3.579.2 .1258 1992 Unknown [id number] 2.16.840.1.884019.3.579.2 .1258 1992 Unknown [id number] 2.16.840.1.836664.3.579.2 .1285 1992 Unknown [id number] 2.16.840.1.778440.3.579.2 .1285 1992 Unknown [id number] 2.16.840.1.973127.3.579.2 .1286 1992 Unknown [id number] 2.16.840.1.005471.3.579.2 .1286 1959 Private Health Insurance [id number] 1959 Private Health Insurance [id number] 1959 Private Health Insurance [id number] Unknown Unknown [id number] 2.16.840.1.152315.3.579.2 .531 Unknown [id number] 2.16.840.1.087475.3.579.2 .531 Unknown [id number] 2.16.840.1.818063.3.579.2 .531 Unknown [id number] 2.16.840.1.459286.3.579.2 .531 Unknown [id number] 2.16.840.1.239915.3.579.2 .531 Unknown [id number] 2.16.840.1.189229.3.579.2 .531 Unknown [id number] 2.16.840.1.619670.3.579.2 .531 Worker's Compensation [id number] Social History Date Type Detail Facility Start: 04-04-2022 End: 02-18-2023 Tobacco smoking status NHIS Never smoked tobacco (finding) [facility] Start: 1990 Sex Assigned At Female F [facility] Start: 07-09-2023 End: 11-18-2024 Sex Assigned At [facility] Tobacco smoking status Never [facility] Start: 07-13-2024 [facility] Start: 02-25-2019 End: 08-07-2024 Sex Female (finding) [facility] Start: 03-17-2019 End: 02-18-2023 Tobacco use and exposure Smokeless tobacco non-user [facility] Start: 02-19-2024 End: 01-27-2025 Alcoholic beverage intake Current drinker of alcohol (finding) [facility] Start: 02-19-2024 End: 11-18-2024 Alcoholic beverage intake [facility] How many standard drinks containing alcohol do you have on a typical day? 1 or 2 [facility] How often do you hav e 6 or more drinks on 1 occasion? Monthly [facility] Start: 1990 Sex assigned at Not on file [facility] Start: 08-07-2024 End: 08-07-2024 Tobacco smoking status NHIS Unknown if ever smoked [facility] Start: 11-21-2024 Alcoholic beverage intake Ex-drinker (finding) [facility] NEGATED: Highlighted row [facility] Goals Date Patient Goal Desired Activity /State Clinical Notes 04-03-2022 to 02-11-2025 Reynold Leslie, OYSTER PREPARER - 02/11/2025 10:50 AM EDTTelephone Encounter - Josey Valentine - 02/04/2025 9:11 AM EDTTelephone Encounter - Josey Valentine - 02/04/2025 9:11 AM EDT Note Date & Type Note Facility 02-11-2025 History of Presen t illness Narrative Reason [...] of thyroid function studies Acid reflux 02/2017 [facility] Alpha thalassemia silent carrier Anemia Endometriosis Fibroid, uterine History of anemia History of hyperthyroidism Hypothyroidism (CMS/HCC) Irregular menses Menometrorrhagia Nontoxic multinodular goiter (CMS/HCC) Overweight (BMI 25.0-29.9) Syncope 06/2016 [facility] Varicella zoster Vitamin D deficiency [...] nursing note reviewed. Exam conducted with a school photograph editor present. Vitals: Estimated body mass index is 35.32 kg/m as calculated from the following: Height [...] remainder of and reported noncompliance with MFM. Documented by Reynold Leslie NP on behalf of: Reynold Leslie NP documented in this encounter [facility] 02-04-2025 Miscellaneous Notes Formattin g of this note might be different from the original. This pt called this morning to cancel her 02-11 mca doppler appt. I gave her three alt, apt dates and time, she also declined these as well,I called her dr, dr pendleton I left a message for the nurse. Thank you documented in this encounter [facility] 02-04-2025 Telephone encount er Note This pt called this morning to cancel her 02-11 mca doppler appt. I gave her three alt, apt dates and time, she also declined these as well,I called her dr, dr pendleton I left a message for the nurse. Thank you [facility] 01-28-2025 Miscellaneous Notes Formattin g of this note might be different from the original. I called pt to talked about the apts I scheduled [place] instead documented in this encounter [facility] 01-28-2025 Telephone encount er Note I called pt to talked about the apts I scheduled due to [place] being booked [place] scheduled her in [place] instead [facility] 01-27-2025 History of Presen t illness Narrative Reason [...] of thyroid function studies Acid reflux 02/2017 [facility] Alpha thalassemia silent carrier Anemia Endometriosis Fibroid, uterine History of anemia History of hyperthyroidism Hypothyroidism (CMS/HCC) Irregular menses Menometrorrhagia Nontoxic multinodular goiter (CMS/HCC) Overweight (BMI 25.0-29.9) Syncope 06/2016 [facility] Varicella zoster Vitamin D deficiency [...] nursing note reviewed. Exam conducted with a school photograph editor present. Vitals: Estimated body mass index is 35.25 kg/m as calculated from the following: Height [...] Malcolm Pendleton DO documented in this encounter [facility] 01-14-2025 History of Presen t illness Narrative Reason [...] of thyroid function studies Acid reflux 02/2017 [facility] Alpha thalassemia silent carrier Anemia Endometriosis Fibroid, uterine History of anemia History of hyperthyroidism Hypothyroidism (CMS/HCC) Irregular menses Menometrorrhagia Nontoxic multinodular goiter (CMS/HCC) Overweight (BMI 25.0-29.9) Syncope 06/2016 [facility] Varicella zoster Vitamin D deficiency [...] nursing note reviewed. Exam conducted with a school photograph editor present. Vitals: Estimated body mass index is 34.63 kg/m as calculated from the following: Height as of 02/19/24: 5' 3 . Weight as of this encounter: 195 lb 8 oz. BP: 102/66 Patient's last menstrual period was 06/23/2024. ASSESSMENT & PLAN ICD-10-CM 1. Third trimester Z34.93 POCT urinalysis dipstick manually resulted 2. 28 weeks gestation of Z3A.28 Return OB: Patient presents today for a routine obstetrics appointment. Patient is currently 28w3d . Patient states she is doing well but has complaints of being tired due to current . Patient has verbalizes frequent movement. labor precautions was discussed/given and patient was instructed to perform kick counts three times a day. Orders Placed This Encounter Procedures POCT urinalysis dipstick manually resulted Follow Up: Patient is to return to office in 2 week for routine OB appointment. Previous cultures were inconclusive therefore cultures were obtained today. She continues to follow with MFM ultrasounds every two weeks for MCA-PSV. Documented by Reynold Leslie NP on behalf of: Reynold Leslie NP documented in this encounter [facility] 12-30-2024 History of Presen t illness Narrative Reason for Appointment: Patient ID: Leandra Fonseca is a 34 y.o. female who presents for Routine Visit (Patient was seen at the [place] ER on 12/29/2024 for painful genital rash. Pt states it had been burning for a few days and continues burning. Patient was dx w/genital herpes and discharged patient w/rx for 1,000 mg Valtrex BID for 10 days and to f/up w/OB doctor. ) Patient presents today for STD Check. and Return OB appointment. MEDICATIONS Current Outpatient Medications Medication Instructions ondansetron ODT (ZOFRAN-ODT) 4 mg, Oral, Every 6 hours PRN terconazole (Terazol 7) 0.4 % vaginal cream 1 applicator, Vaginal, Nightly triamcinolone (Kenalog) 0.1 % cream Apply to affected areas, up to twice a day when flared, do not use one the face, groin, or underarms, 30 day supply ALLERGIES Allergies Allergen Reactions Labetalol Other, Shortness [...] History: Diagnosis Date Acid reflux 02/2017 [facility] Alpha thalassemia silent carrier Anemia Endometriosis Fibroid, uterine History of anemia History of hyperthyroidism Hypothyroidism (CMS/HCC) Irregular menses Menometrorrhagia Overweight (BMI 25.0-29.9) Syncope 06/2016 [facility] Varicella zoster Social History Tobacco Use [...] nursing note reviewed. Exam conducted with a school photograph editor present. Vitals: Estimated body mass index is 33.66 kg/m as calculated from the following: Height as of 02/19/24: 5' 3 . Weight as of this encounter: 190 lb. BP: 122/74 Patient's last menstrual period was 06/23/2024. ASSESSMENT & PLAN ICD-10-CM 1. Second trimester Z34.92 CANCELED: POCT urinalysis dipstick manually resulted 2. 26 weeks gestation of Z3A.26 3. Seen in emergency room Z76.89 4. Exposure to STD Z20.2 SURESWAB(R) ADVANCED VAGINITIS PLUS, TMA CHLAMYDIA TRACHOMATIS (GENITO/STI) Neisseria gonorrhea DNA probe, direct Return OB: Patient presents today for a routine obstetrics appointment. Patient is currently 26w2d . Patient states she is doing well but has complaints of being tired due to current . Patient has verbalizes frequent movement. labor precautions was discussed/given and patient was instructed to perform kick counts three times a day. Pt was seen in ER yesterday HSV primary outbreak, rx for norco and valtrex faxed to pharmacy. Pt will have cultures obtained next visit- rx for azithromycin faxed to pharmacy for precaution. No orders of the defined types were placed in this encounter. Follow Up: Patient is to return to office in 2 week for routine OB appointment. Documented by Michell Patten LPN on behalf of: Malcolm Pendleton DO documented in this encounter [facility] 12-12-2024 History of Presen t illness Narrative Summary: [facility] Genetic Counseling Note Images from the original note were not included. Provider at different site/location than patient. I confirmed the patient is located in the [facility]. Leandra Fonseca is currently at home and provider at remote site. The patient consented to be treated electronically via this form of telemedicine. This visit was not related to an office visit or procedure in the past 7 days, and in-office follow up is not recommended in the next 24 hours. Video Visit via Real-time Synchronous Audiovisual Provider Location: [facility] AT [address] [address] Patient Location: Patient's home Patient Location Access Rn: None Video Visit Consent Statement: I discussed [...] that there are some limitations compared to [id number] evaluations. We elected to proceed. Name: Leandra Fonseca : 1990 Date of Visit: 12/12/2024 Email: [email or web address] Preferred contact method: mychart, mail, phone Requesting Physician: Malcolm Pendleton DO [address] [place] [address] [place] [address] Reason for Referral: Leandra Fonseca is a 34 y.o. female who presented to [facility] Telemedicine Clinic for a genetic counseling visit. [...] Screen: YES - low risk Performing lab: [facility] Conditions screened: Trisomy 13, Trisomy 18, Trisomy 21, sex chromosome aneuploidies sex predicted: male fraction: 11.8% Carrier Screening: YES - alpha thalassemia carrier (a-/a-), increased risk Performing lab: [facility] Test type: UNITY Screen Carrier Screen with [...] low. We reviewed all children born in [place] are screened for alpha thalassemia and sickle [...] the affected family member by a medical claims specialist or electrical lineworker may be helpful in defining the condition [...] call or email their genetic counselor at [phone] or [email or web address] if any additional questions or concerns should arise. HARPAL Kunz Licensed, Certified Genetic Counselor documented in this encounter [facility] 12-09-2024 Miscellaneous Notes Formattin g of this note might be different from the original. Attempted to contact patient to schedule Genetic counseling appointment. No answer. LVM requesting patient return call to schedule. documented in this encounter [facility] 12-09-2024 Telephone encount er Note Attempted to contact patient to schedule Genetic counseling appointment. No answer. LVM requesting patient return call to schedule. [facility] 12-08-2024 Miscellaneous Notes Formattin g of this note might be different from the original. I talked to pt and gave her the times and dates of the new apts Priscilla F made for her. She said they where all fine, thank you documented in this encounter [facility] 12-08-2024 Telephone encount er Note I talked to pt and gave her the times and dates of the new apts Priscilla F made for her. She said they where all fine, thank you [facility] 12-08-2024 History of Presen t illness Narrative [facility] staff note 1. Alpha-thalassemia carrier (a-/a-) with mild anemia. Father of the baby testing unavailable. Unfortunately the father of the baby has . carrier screening high risk for alpha-thalassemia anemia and therefore patient will require every 14 days MCA Doppler studies until 37 weeks gestation. HENNY MONTGOMERY MD documented in this encounter [facility] 11-21-2024 History of Presen t illness [...] No Have you been seen here at [facility] in a previous ? Yes, with G2 Recent ER visits or hospitalizations? No Bring blood sugar log or meter with you today? (Please bring them with you for every visit at [facility]) N/A Flu vaccine (Jul-November)? No Any concerns [...] Past Surgical History: Procedure Laterality Date SECTION 2016 TUMOR REMOVAL per patient, emdometrial tumor removed [...] and the other consultants, we search on [employer] and all the available care everywhere [facility] I did review all the imaging studies of the patient available on EMR, ordered by the primary care physician and the other siebel consultant HABITS: Patient activity no restrictions, diet [...] for alpha-thalassemia on the fetus done through [facility] free DNA testing 3. Patient is [...] MCA Dopplers at 30 weeks gestation at [facility] office at our [facility] site. 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 Patient does have ultrasound scheduled with us. Thank you for allowing me to participate in Leandra Fonseca . If there any questions please do not hesitate to contact us. Sincerely, HENNY MONTGOMERY MD documented in this encounter [employer] 11-18-2024 History of Presen t illness Narrative [...] Visit: 1 year documented in this encounter [facility] 11-10-2024 Evaluation note Diagnosis Onset Date Resolution Anemia acute November 10, 2024 2:45pm Folate deficiency acute Februar 2024 2:45pm Iron deficiency anemia due to chronic blood loss acute November 10, 2 025 2:45pm Vitamin B12 deficiency anemia acute November 10, 025 2:45pm Iron deficiency anemia due to chronic blood loss acute November 10, 025 3:16pm [facility] Work Phone: 1(646) 132-189202-18-2025 History of Present illness Narrative* Michell Patten LPN - 11/04/2024 9:30 AM EST Reason for Appointment: Patient ID: Leandra Fonseca [...] History: Diagnosis Date Acid reflux 02/2017 [facility] Alpha thalassemia silent carrier Anemia Endometriosis Fibroid, uterine History of anemia History of hyperthyroidism Hypothyroidism (CMS/HCC) Irregular menses Menometrorrhagia Overweight (BMI 25.0-29.9) Syncope 06/2016 [facility] Varicella zoster Social History Tobacco Use [...] nursing note reviewed. Exam conducted with a school photograph editor present. Vitals: Estimated body mass index is 31.71 kg/m as calculated from the following: Height as of 6/4/24: 5' 3 . Weight as of this [...] of: Malcolm Pendleton DO documented in [facility] encounter[facility] [id number] History of Present illness Narrative* CAROLA Patton - 10/14/2024 11:20 AM EST Reason for Appointment: Patient ID: Leandra Fonseca [...] History: Diagnosis Date Acid reflux 02/2017 [facility] Alpha thalassemia silent carrier Anemia Endometriosis Fibroid, uterine History of anemia History of hyperthyroidism Hypothyroidism (CMS/HCC) Irregular menses Menometrorrhagia Overweight (BMI 25.0-29.9) Syncope 06/2016 [facility] Varicella zoster Social History Tobacco Use [...] History: Procedure Laterality Date SECTION, LOW TRANSVERSE 2016 31 weeks/PIH Mccormick SECTION, LOW TRANSVERSE 09/03/2019 [...] annual exam/routine obstetrics appointment. Patient is currently [id number]. Patient states she is doing well but [...] behalf of: CAROLA Patton documented in this encounterUniversity [facility] Health [id number] History of Present illness Narrative* Michell Patten, COLOR CHECKER - 09/11/2024 10:20 AM EST Reason for Appointment: Patient ID: Leandra Fonseca [...] History: Diagnosis Date Acid reflux 02/2017 [facility] Alpha thalassemia silent carrier Anemia Endometriosis Fibroid, uterine History of anemia History of hyperthyroidism Hypothyroidism (CMS/HCC) Irregular menses Menometrorrhagia Overweight (BMI 25.0-29.9) Syncope 06/2016 [facility] Varicella zoster Social History Tobacco Use [...] nursing note reviewed. Exam conducted with a school photograph editor present. Vitals: Estimated body mass index is [...] been consulted regarding any further do's and don'tsof . Patient voiced understanding and all questions and concerns were answered. Pt still ex tremely sick, rx for phenergan faxed to pharmacy. [...] of: Malcolm Pendleton DO documented in this encounterUniversity of [facility] Health [id number] History of Present illness Narrative* Suze Lopez LPN - 08/26/2024 9:30 AM EST Reason for Appointment: Patient ID: Leandra Fonseca [...] drink 6-8 glasses of water a day, eatno raw or undercooked meat, and stay away from [facility]. Patient has also been advised to not change litter boxes and eat 6 small meals a day. Patient has been consulted regarding the do's and don'ts ofpregnancy. Patient was given labs and all questions [...] by: Suze Lopez LPN documented in this encounterUniversity of [facility] Health [id number] Evaluation note* Diagnosis Onset Date Resolution Status Admit Date Abdominal pain acute July 142023 11:39am [facility] Work Phone: 1(325) 323-439810-18-2023 Progress note Author Kelly Hough [facility] July 03, 2023 10:09pm Note Date/Time June 27, 2023 1 0:36am [facility] at [address] [address] Hem/Onc Follow Up Note - OP Signed Patient: Leandra Fonseca MR#: [id number] : 1990 Acct:[id number] Age/Sex: 33 / F Type: REG RCR Copies to: Yudelka Lopez, BETTY, OYSTER PREPARER-C~ Date of Service: 06/27/2023 Time of Service: [...] She believes she had this done at [facility] in [place] in 2019. We will request these records, and if they are not available, will plan repeat testing including hemoglobin electrophoresis. In themeantime check b12, folate, copper, epo, reticulocytes, haptoglobin, LDH, and christiano testing. B12 deficiency Will initiate weekly B12 injections x 4, then switch to monthly Follow Up Instructions: b12 weekly x 4 then monthly get [facility] records from 2019- hgb electrophoresis, thalassemia [...] cravings denies new complaints. Her periods are [employer] now on control. Her heavy days she [...] for coordination of care (as documented) and [id number] counseling of patient and/or family. [facility] - Medical History Medical History: Medical [...] By: <Electronically signed by BETTY Hough> 07/03/23 [address] [facility] Work Phone: 1(550) 343-909809-18-2023 Evaluation note* Encounter Date Diagnosis Assessment Notes Treatment Notes Treatment Clinical Notes May, Rash and nonspecific skin eruption (ICD-10 - R21) 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 Given return precautions. [employer] Other 07-18-2023 Progress note Author Kelly Hough [facility] April 03, 2023 9:16am Note Date/Time March 21, 2023 3:35p [facility] [place] [address] Hem/Onc Follow Up Note - OP Signed Patient: Leandra Fonseca MR#: [id number] : 1990 Acct:[id number] Age/Sex: 32 / F Type: REG RCR [...] and ondansetron. She is referred by Yudelka Lopez, OYSTER PREPARER for her iron deficiency anemia. Most recent [...] cravings denies new complaints. Her periods are [employer] now on control. Her heavy days she [...] (Last Reviewed 02/06/23 @ 09:40 by Marguerite Soviak, RN) History of section - Family History [...] 25 mg rectal suppository (Anusol-HC) 25 mg KS DAILY 2 weeks #12 ea 02/06/23 [Rx [...] for coordination of care (as documented) and [id number]-tg-[id number] counseling of patient and/or family. Dictated By: Kelly Hough APRN DD/ 1535 Signed By: <Electronically signed by BETTY Hough> 04/03/23 0916 [facility] Work Phone: 1(221) 400-313304-19-2023 Progress note Author Kelly Hough [facility] January 03, 2023 2:03pm Note Date/Time January 02, 2023 10: 47am [facility] [place] [id number] Hem/Onc Follow Up Note - OP Signed Patient: Leandra Fonseca MR#: [id number] : 1990 Acct:[id number] Age/Sex: 32 / F Type: REG RCR Copies to: Yudelka Lopez APRN, OYSTER PREPARER-C~ Subjective Date/Time of Service: Date of Service: [...] cravings denies new complaints. Her periods are [employer] now on control. Her heavy days she will only go thru maybe 2 pads/day. labs with hgb 11, iron sat 46.5% and ferritin 58.3 PMF - Medical History Medical History: Medical [...] for coordination of care (as documented) and pzwi-oa-zqby counseling of patient and/or family. Dictated By: Kelly Hough APRN DD/ 104 Signed By: <Electronically signed by BETTY Hough> 01/03/23 1403 [facility] Work Phone: [phone]) 383-297004-07-2023 Evaluation note* Encounter Date Diagnosis Assessment Notes Treatment Notes Treatment Clinical Notes Dec, Abdominal pain (ICD-10 - R10.9) Dec, Bloating (ICD-10 - R14.0) Dec, Nausea (ICD-10 - R11.0) [employer] Other 04-06-2023 Evaluation note* Encounter Date Diagnosis [...] - K92.1) Dec, Other Obtain records from [facility] in 2019 for EGD/Colonoscopy [employer] Other 01-17-2023 Consult note Author Kelly Hough [facility] October 03, 2022 1:04pm Note Date/Time October 03, 2022 1 1:23[facility] [place] [address] Hem/Onc Consult Note - OP Signed with Gena Patient: Leandra Fonseca MR#: [id number] : 1990 Acct:[id number] Age/Sex: 32 / F Type: REG RCR [...] going to the ER with worsening symptoms. [facility] - Medical History Medical History: Medical [...] for coordination of care (as documented) and vlay-nn-tmwt counseling of patient and/or family. Dictated By: Kelly Hough APRN DD/ 1123 Signed By: <Electronically signed by BETTY Hough> 10/03/22 1259 [facility] Work Phone: [phone] 391-371907-18-2022 NotePROCEDURE DETAILS Preoperative Diagnosis: Left abdominal wall endometrioma Postoperative Diagnosis: Same Surgeon: Sly Crocker Resident/Fellow/Other Echocardiography Technologist: Ariel Thompson Procedure: 1. LEFT ABDOMINAL WALL TUMOR RESECTION 8X5.5X4CM 2. MESH RECONSTRUCTION ANTERIOR RECTUS FASCIA 7X5CM DEFECT (Bard Soft Mesh) 3. COMPLEX CLOSURE OF A 8CM WOUND Anesthesia: Alan Pardo Estimated Blood Loss: 10ml Findings: 8X5.5X4CM SOFT TISSUE MASS WITH EN BLOC FASCIA AND OVERLYING SKIN PADDLE Specimens(s) Collected: yes, Left anterior wall soft tissue mass -short [id number]:00, long lateral 300 Complications: None Drains and/or [...] of the procedure. Note Recipients: Yudelka Lopez, BETTY-MANAGER UTILITY MALCOLM PENDLETON R - [id number] [] Attestation: Note Completion: Attending AttestationI was present for the entire procedure Electronic Signatures: Sly Crocker) (Signed 03-Apr-2022 17:55) Authored: Post-Operative Note, Chart Review, Note Completion Last Updated: 03-Apr-2022 17:55 by Sly Crocker)[facility]07-18-2022 NoteHistory & Physical Reviewed: /Lactating: [...] the note. I personally evaluated the patient [id number] Electronic Signatures: Miguel Crawford ( (Resident)) (Signed 03-Apr-2022 12:08) Authored: History & Physical Reviewed, ERAS, Consent, Note Completion Sly Crocker) (Signed 03-Apr-2022 14:42) Authored: Note Completion Co-Signer: History & Physical Reviewed, ERAS, Consent, Note Completion Last Updated: 03-Apr-2022 14:42 by Sly Crocker)[facility] No data available for this section [facility] General Surgery [place] Evaluation noteNo assessment information available [facility] Work Phone: Evaluation note* Diagnosis Onset Date Resolution Status Iron deficiency anemia due to chronic blood loss acute [facility] Work Phone: Evaluation note* Diagnosis Onset Date Resolution Status Abdominal pain acute [facility] Work Phone: Evaluation note* Diagnosis Missed menses , unspecified gestational age Encounter for supervision of normal first in first trimester Nausea and vomiting in Unspecified vomiting of , unspecified as to episode of care [facility] Diagnosis 10 weeks gestation of [...] o chronic blood loss acute October 3:16pm [facility] Work Phone: Evaluation note* Diagnosis Acne vulgaris- Primary Other acne Other atopic dermatitis documented in this encounter [facility]* Diagnosis Previous delivery affecting , antepartum- Primary Previous delivery, antepartum condition or complication History of pre-eclampsia in prior , currently in first trimester History of anemia Personal history of diseases of blood and blood-forming organs Choroid plexus cyst of fetus affecting care of mother, antepartum, fetus 1 [facility] Diagnosis History of anemia- Primary Personal history of diseases of blood and blood-forming organs [facility] Diagnosis Thalassemia alpha carrier- Primary [facility]* Diagnosis Thalassemia alpha carrier- Primary Abnormal genetic test during Family history of sickle cell trait Family history of DVT [facility]* Diagnosis Second trimester state, incidental 26 weeks gestation of Seen in emergency room Exposure to STD HSV (herpes simplex virus) infection Herpes simplex without mention of complication documented in this encounter [facility]* Diagnosis Third trimester state, incidental 28 weeks gestation of documented in this encounter [facility]* Diagnosis Third trimester state, incidental 30 weeks gestation of H/O pre-eclampsia in prior , currently H/O delivery, currently Request for sterilization documented in this encounter [facility]* Diagnosis Thalassemia alpha carrier- Primary Family history [...] in first trimester [facility] Diagnosis Third trimester state, incidental 32 weeks gestation of Nausea Nausea alone [facility] - Reported* Type Description Date Medical History concussion Medical History IBS-C Surgical History C SECTION Hospitalization History see above [employer] Other History of Present illness Narrative* Ms. [...] sensorimotor deficits * Extremities: No leg swelling [id number] Work Phone: History of Present illness [...] to the telephone nature of this visit. [facility] Work Phone: Hospital Discharge instructions Additional Instructions If your symptoms return/worsen or you develop any further concerns or symptoms please see your doctor or return to the emergency department immediately.[facility] Work Phone: Hospital Discharge instructions Additional Instructions Follow-up with your primary care doctor Return to ED if you develop worsening symptoms [facility] Work Phone: Hospital Discharge instructions Additional Instructions Return for worsening symptoms [facility] Work Phone: Hospital Discharge instructions No data available for this section [facility] Hospital Discharge instructions Additional Instructions We evaluated you for your symptoms. Your workup here was unremarkable. Please use the nausea medicine as prescribed. Please follow closely with your primary doctor. Please return to the emergency department if you develop any worsening or concerning symptoms. [facility] Work Phone: InstructionsNot on filedocumented in this encounter [facility]ed [facility] filedocumented in this encounter [facility] filedocumented in this encounter [facility] on filedocumented in this encounter [facility] on filedocumented in this encounter [facility] No data available for this section [facility] Summary Purpose Family History Relationship Condition Age [...] bl ood loss November 10, 2024 3:16pm Chief Complaint Admit Date f/u, labs November 10, 2024 2:45pm Iron Deficiency Anemia November 10 3:16pm E61.1 January 28, 2025 8:26a m Reason for Visit Admit Date Anemia November 10, 2024 2:45pm Folate deficiency November 10, 2024 2:45pm Iron deficiency anemia due to chronic bl ood loss November 10, 2024 2:45pm Vitamin B12 deficiency anemia October 192024 2:45pm Iron deficiency anemia due to chronic bl ood loss November 10, 2024 3:16pm Additional Source Comments INFORMATION SOURCE (unrecogn ized section and content) DATE CREATED AUTHOR 04/07/2022 [facility] DATE CREATED AUTHOR AUTHOR'S ORGANIZ ATION 04/23/2022 [facility] DATE CREATED AUTHOR AUTHOR'S ORGANIZ ATION 04/28/2022 [facility] DATE CREATED AUTHOR AUTHOR'S ORGANIZ ATION 05/16/2022 [facility] DATE CREATED AUTHOR AUTHOR'S ORGANIZ ATION 12/21/2022 [facility] DATE CREATED AUTHOR AUTHOR'S ORGANIZ ATION 12/11/2023 [facility] DATE CREATED AUTHOR AUTHOR'S ORGANIZ ATION 12/13/2024 [facility] DATE CREATED AUTHOR AUTHOR'S ORGANIZ ATION 01/28/2025 [facility] dical Specialists [facility] DATE CREATED AUTHOR AUTHOR'S ORGANIZ ATION 01/28/2025 [facility] DATE CREATED AUTHOR AUTHOR'S ORGANIZ ATION 02/11/2025 [facility] y[facility] Care Teams (unrecognized sec tion and content) Team Status: Active Member Role Status Dates Yudelka Lopez APRN OYSTER PREPARER-C Primary Care Provider Act klever Team Status: Inactive Member Role Status Dates Yudelka Lopez APRN OYSTER PREPARER-C Primary Care Provider Act klever Start: July 14, 2024 End: July 14, 2024 Larry Underwood PA-C Attending Provider Active St art: July 14, 2024 End: July 14, 2024 Team Status: Active Member Role Status Dates Yudelka Lopez APRN OYSTER PREPARER-C Primary Care Provider, Re ferring Provider Active Kelly Huogh APRN Attending Provider Acti ve Team Status: Inactive Member Role Status Dates Yudelka Lopez APRN OYSTER PREPARER-C Primary Care Provider Act kleveralbino Horton MD Attending Provider Active Team Status: Inactive Member Role Status Dates Yudelka Lopez APRN OYSTER PREPARER-C Primary Care Provider Act klever Allegra Vega PA-C Emergency Provider Active Team Status: Active Member Role Status Dates Yudelka Lopez APRN OYSTER PREPARER-C Primary Care Provider, At tending Provider Active Team Status: Inactive Member Role Status Dates Yudelka Lopez APRN OYSTER PREPARER-C Primary Care Provider Act klever Shanks MD Attending Provider Active Dayne Horton MD Referring Provider Active Team Status: Inactive Member Role Status Dates Yudelka Lopez APRN OYSTER PREPARER-C Primary Care Provider, At tending Provider Active Team Status: Inactive Member Role Status Dates Yudelka Lopez APRN OYSTER PREPARER-C Primary Care Provider Act klever Frank A Keister , DO Emergency Provider Active Team Status: Inactive Member Role Status Dates Yudelka Lopez , COLLECTOR OF INTERNAL REVENUE OYSTER PREPARER-C Primary Care Provider Act klever Sly Crocker MD Attending Provider Active Team Status: Inactive Member Role Status Dates Yudelka Lopez , COLLECTOR OF [employer]VENUE OYSTER PREPARER-C Primary Care Provider Act klever Jim Vega , DO Emergency Provider Active Team Status: Inactive Member Role Status Dates Yudelka Lopez , COLLECTOR OF [employer] REVENUE OYSTER PREPARER-C Primary Care Provider Act klever Chris Greenwood , DO Emergency Provider Active Team Status: Inactive Member Role Status Dates Yudelka Lopez , COLLECTOR OF [employer]VENUE OYSTER PREPARER-C Primary Care Provider Act klever Marvin Serrano Jr, MD Emergency Provider Active Team Status: Inactive Member Role Status Dates Yudelka Lopez , COLLECTOR OF [employer]VENUE OYSTER PREPARER-C Primary Care Provider Act klever Frank Silva , DO Emergency Provider Active Vicky Fuentes DO RES Active Team Status: Inactive Member Role Status Dates Yudelka Lopez , COLLECTOR OF [employer]VENUE OYSTER PREPARER-C Primary Care Provider Act klever Tejinder Peraza , OYSTER PREPARER-C Attending Provider Active Team Status: Inactive Member Role Status Dates Jim Vega , DO Emergency Provider Active Yudelka Lopez , COLLECTOR OF [employer]VENUE OYSTER PREPARER-C Primary Care Provider Act klever Team Status: Inactive Member Role Status Dates Yudelka Lopez , COLLECTOR OF [employer]VENUE OYSTER PREPARER-C Primary Care Provider Act kleveralbino Shanks MD Attending Provider Active Team Status: Inactive Member Role Status Dates Yudelka Lopez , COLLECTOR OF [employer]VENUE OYSTER PREPARER-C Attending Provider Active Team Status: Inactive Member Role Status Dates Yudelka Lopez , COL[employer]OR [employer]VENUE OYSTER PREPARER-C Primary Care Provider Act klever Start: July 14, 2024 End: July 14, 2024 Sarah Dodd DO Emergency Provider Active Start: July 14, 2024 End: July 14, 2024 Lety Dougherty DO RES Active Sta rt: July 14, 2024 End: July 14, 2024 Team Status: Active Member Role Status Dates Yudelka Lopez [employer]UE OYSTER PREPARER-C Primary Care Provider Act klever Start: August 06, 2024 Marvin Serrano Jr, MD Emergency Provider Active Start: August 06, 2024 Julián Naqvi MD Admit Provide r, Attending Provider Active Start: August 06, 2024 Wind Development Director Relationship Specialty Start Date End Date Sarah Lopez DO [address] [place] [address] Referring Physician Emergency Medicine 02/18/23 Wind Development Director Relationship Specialty Start Date End Date Sarah Lopez DO [address] [place] [address] Referring Physician Emergency Medicine 02/18/23 Wind Development Director Relationship Specialty Start Date End Date Sarah Lopez DO [address] [place] [address] Referring Physician Emergency Medicine 02/18/23 Wind Development Director Relationship Specialty Start Date End Date Sarah Lopez DO [address] [place] [address] Referring Physician Emergency Medicine 02/18/23 Wind Development Director Relationship Specialty Start Date End Date Sarah Lopez DO [address] [place] [address] Referring Physician Emergency Medicine 02/18/23 Wind Development Director Relationship Specialty Start Date End Date Sarah Lopez DO [address] [place] [address] [id number] Referring Physician Emergency Medicine 02/18/23 Wind Development Director Relationship Specialty Start Date End Date Sarah Lopez DO [address] [place] [address] Referring Physician Emergency Medicine 02/18/23 Wind Development Director Relationship Specialty Start Date End Date Sarah Lopez DO [address] [place] [address] Referring Physician Emergency Medicine 02/18/23 Wind Development Director Relationship Specialty Start Date End Date Sarah Lopez DO [address] [place] [address] Referring Physician Emergency Medicine 02/18/23 Wind Development Director Relationship Specialty Start Date End Date Saarh Lopez DO [address] [place] [address] Referring Physician Emergency Medicine 02/18/23 Team Status: Inactive Member Role Status Dates Malcolm Pendleton DO Attending Provider Active Start : September 11, 2024 End: September 11, 2024 Team Status: Inactive Member Role Status Dates Ingrid Esquivel APRN Attending Provider Active Start: November 10, 2024 End: November 10, 2024 Yudelka Lopez APRN OYSTER PREPARER-C Primary Care Provider Act klever Start: November 10, 2024 End: November 10, 2024 Team Status: Active Member Role Status Dates Yudelka Lopez APRN OYSTER PREPARER-C Referring Provider Active Start: November 10, 2024 Kelly Hough APRN Attending Provider Active Start: October Alfie Matthews MD Primary Care Provider Active S tart: November 10, 2024 Wind Development Director Relationship Specialty Start Date End Date Sarah Lopez DO [address] [place] [address] Referring Physician Emergency Medicine 02/18/23 Wind Development Director Relationship Specialty Start Date End Date No Pcp, [place] [address] PCP - General Family Medicine 02/21/24 Wind Development Director Relationship Specialty Start Date End Date No Pcp, [place] [address] PCP - General Family Medicine 02/21/24 Wind Development Director Relationship Specialty Start Date End Date No Pcp, [place] [address] PCP - General Family Medicine 02/21/24 Wind Development Director Relationship Specialty Start Date End Date No Pcp, [place] [address] PCP - General Family Medicine 02/21/24 Wind Development Director Relationship Specialty Start Date End Date No Pcp, [place] [address] PCP - General Family Medicine 02/21/24 Wind Development Director Relationship Specialty Start Date End Date Sarah Lopez DO [address] [place] [address] Referring Physician Emergency Medicine 02/18/23 Wind Development Director Relationship Specialty Start Date End Date [facility] [place] [address] Referring Physician Emergency Medicine 02/18/23 Wind Development Director Relationship Specialty Start Date End Date Lopez Sarah [facility] [place] [address] Referring Physician Emergency Medicine 02/18/23 Wind Development Director Relationship Specialty Start Date End Date Sarah Lopez [address] [place] [address] Referring Physician Emergency Medicine 02/18/23 Wind Development Director Relationship Specialty Start Date End Date No Pcp, [place] [address] PCP - General Family Medicine 02/21/24 Wind Development Director Relationship Specialty Start Date End Date No Pcp, [place] [address] PCP - General Family Medicine 02/21/24 Team Status: Active Member Role Status Dates PHYSICIAN NO FAMILY Primary Care Provider Active Team Status: Inactive Member Role Status Dates Priscilla Warren PA-C Attending Provider Active Sta rt: January 28, 2025 End: January 28, 2025 PHYSICIAN NO FAMILY Primary Care Provider Active Start: January 28, 2025 End: January 28, 2025 Wind Development Director Relationship Specialty Start Date End Date No Pcp, [place] [address] PCP - General Family Medicine 02/21/24 Wind Development Director Relationship Specialty Start Date End Date Sarah [facility] [place] [address] Referring Physician Emergency Medicine 02/18/23 Goals (unrecognized [...] Carrier Specialty Diagnoses / Procedures Referred By Rustam teixeira Referred To Contact Maternal and Medicine Diagnoses Thalassemia alpha carrier Henny Montgomery MD [address], [address] [place] [address] Phone: tel: fax: Maternal- Medicine at [address] [place] [address] Phone: tel: fax: Referral ID Status Reason Start Date Expiration Date Visits Requested Visits Authorized [id number] Pending Review Specialty Services Required 12/09/2024 12/09/2025 1 1 Reason Comments Routine Visit Patient was seen at the [place] ER on 12/29/2024 for painful genital rash. Pt states it had been burning for a few days and continues burning. Patient was dx w/genital herpes and discharged patient w/rx for 1,000 mg Valtrex BID for 10 days and to f/up w/OB doctor. FOR RECORDS PERTAINING TO PATIENTS WHO ARE [...] BE BASED ON THE PRIMARY CLINICAL RECORDS. [facility] [employer] [facility]. provides no warranty or guarantee of the accuracy or completeness of information in this document.
[2025-02-12 08:49] VITALS: BP 113/57; PULSE 69
== END 2025-02-12 09:30 | disposition home or self-care (01) ==
LOC: US 08:05 → FBC 08:08
PROVIDERS: Visit Provider Obstetrics & Gynecology
DX: O10.913 Unspecified pre-existing hypertension complicating pregnancy, third trimester (principal); Z3A.32 32 weeks gestation of pregnancy; O09.293 Supervision of pregnancy with other poor reproductive or obstetric history, third trimester; O09.893 Supervision of other high risk pregnancies, third trimester
CPT/HCPCS: 76818

== ENCOUNTER 2025-02-16 08:03 | Outpatient (OUT) | payer OTHER, MEDICAID, SELFPAY ==
--- OUTSIDE RECORDS SUMMARY | 2022-11-20 08:27 | XMS_ITS | Continuity of Care Document ---
Author Organization [facility] Address [address] [place] [address] Phone Care Team Providers Care Fruit Or Nut Farmworker Name Role Phone Dawson Hernandez Unavailable Unavailable [...] Diagnoses Date Provider Providers Copied on Encounter [facility], [address] [place], [place], [address], [place] tel:[phone] [facility] No Information Nov-0 3 Vida Conrad. [address] [place], [place], [address] , [place]. tel:[phone] [facility], [address] [place], [place], [address], [place] tel:[phone] [facility] No Information Elinaruchi Dawson. [address] [place], [place], [address] , [place]. tel: [phone] PREV VISIT, NEW, AGE 18-39 [facility], [address] [place], [place], [address], [place] tel:[phone] [facility] establish care (chief complaint)b irth control (chief complaint) Gynecological ExaminationOther specified contraceptive management 4 Prashanth [facility] Maggy. [address] [place], [place], [address] , [place]. tel: [phone] Family History Family Member Type Diagnosis Age [...] Insurance type Covered democrat ID Authoriza tion(s) [facility] CI [id number] Medicaid Wrap - [facility] [place] [id number] [facility] [id number] Medicaid Wrap - [facility] [place] [id number] Social History Type Description Quantity Date Captured [...]
--- OUTSIDE RECORDS SUMMARY | 2024-07-23 09:30 | XMS_ITS ---
Author Organization [facility] Serv[facility] Address [address] [place] [address] Care Team Providers Care Retail Sales Merchandiser Development Name Role Phone Yudelka Lopez Primary Care Provider Dr. Leroy Salazar Unavailable [phone] REASON FOR VISIT cough, congestion Encounters Encounter Location Date Provider Diagnosis [facility] [address] [place] [address] 07/23/2024 Yudelka Lopez Plan Of Treatment No Information Progress Notes * LISHA FONSECA GDOB: [birth year] (34 yo F)Acc No.[id number]:07/23/2024 PROGRESS NOTES Patient: Deb SANCHEZ LISHA Moe Provider: Rowan Lopez :1990 A ge:34 Y S ex:Female Date:07/23/2024 Address:[address] [facility], [id number] Subjective: * Chief Complaints: * 1 . Cough, congestion. * Medical History: Objective: * Vitals: Assessment: Plan: * Treatment: * Images: * Electronic signature of Howard Lopez CNP on 02/16/2025 at 08:06 AM EDT Sign off status: Pending * Provider: Rowan Lopez Date: 09/22/2023 Generated for Damon dailey/Timothy/eTcarriitting on: 0 02/16/2025 08:06 AM EDT
--- OUTSIDE RECORDS SUMMARY | 2024-11-28 05:20 | XMS_ITS ---
Author Organization [facility] Servic es Address [address] [facility] [place] [address] Care Team Providers Care Wash Oil Pump Operator Helper Name Role Phone Yudelka Lopez Primary Care Provider Dr. Leroy Salazar Unavailable [phone] REASON FOR VISIT new pt Encounters Encounter Location Date Provider Diagnosis [facility] Services [address] [place] [address] 11/28/2024 Leroy Salazar Plan Of Treatment No Information Progress Notes * LISHA FONSECA GDOB: [birth year] (34 yo F)Acc No.[id number]:11/28/2024 Patient: ISAAK MALCOLMLEY Moe Provider: Deb Salazar DDS :1990 A ge:34 Y S ex:Female Date:11/28/2024 Address:[address] [place] [address], [address], [id number] Pcp:Yudelka Lopez Subjective: * Chief Complaints: * 1 . New pt. * Medical History: Objective: * Vitals: Assessment: Plan: * Treatment: * Images: * Electronic signature of Dr. Leroy Salazar , DMD on 02/16/2025 at 08:06 AM EDT Sign off status: Pending * Provider: Deb Salazar DDS Date: 11/28/2024 Generated for Printi ng/Faxing/eTransmitting on: 02/16/2025 08:06 AM EDT
--- OUTSIDE RECORDS SUMMARY | 2025-02-11 10:50 | XMS_ITS | Encounter Summary ---
Author Organization [facility] Address [address] [place] [address] Care Team Providers Care Incinerator Attendant Name Role Phone Sarah Lopez DO Unavailable [phone] Reason for Visit * Reason Comments Routine Visit Encounter Details Date Type Department Care Team (Late st Contact Info) Description 02/11/2025 10:50 AM EDT Routine [facility] B[facility] OB [address] [facility] [place] [address] Priscilla Warren PA [address] [facility] [address] [place], [facility]11 Third trimester ; 32 weeks gestation [...] of thyroid function studies Acid reflux 02/2017 [facility] Alpha thalassemia silent carrier Anemia Endometriosis Fibroid, uterine History of anemia History of hyperthyroidism Hypothyroidism (CMS/HCC) Irregular menses Menometrorrhagia Nontoxic multinodular goiter (CMS/HCC) Overweight (BMI 25.0-29.9) Syncope 06/2016 [facility] Varicella zoster Vitamin D deficiency Social [...] nursing note reviewed. Exam conducted with a director of infection prevention present. Vitals: Estimated body mass index is [...] today. Will obtain most recent notes from Ram Press Operator with diagnosis ofAlpha Thalassemia silent carrier. Documented [...] AM EDT Routine [facility] OB [address] [facility] [place] [address] Malcolm Pendleton, DO [address] [facility] [place] [address] 11/19/2025 10:50 AM EST Office Visit [facility] [address] [place] [address] SariahKayleigh mares, LANDSCAPE SUPERVISOR-CELEBRITY CHEF ENTREPRENEUR MEDIA PERSONALITY [address] [place] [address] documented as of this encounter Procedures Procedure [...] alone documented in this encounter Care Teams Incinerator Attendant Relationship Specialty [place] [address] [place] [address] Referring Physician Emergency Medicine 02/18/23 documented as of this encounter
--- OUTSIDE RECORDS SUMMARY | 2025-02-16 08:06 | XMS_ITS | Clinical Summary ---
Author Organization [facility] Address [address] [place] [id number] Care Team Providers Care Citizenship Teacher Name Role Phone Unavailable Primary Care Provider [...] (2 - Td or Tdap) 01/09/2026 Insurance [facility] COMMUNITY PLAN [place]
--- OUTSIDE RECORDS SUMMARY | 2025-02-16 08:06 | XMS_ITS | Encounter Summary ---
Author Organization [facility] Address [id number] [address] [place] [address] Care Team Providers Care Electronic Typesetting Machine Operator Name Role Phone No Pcp, No Pcp Primary Care Provider Unavailabl e Encounter Details Date Type Department Care Team (Late Contact Info) Description 12/09/2024 Orders Only Maternal- Medicine at [facility] [address] [place] [phone] Natalie Díaz, RN Choroid plexus cyst of [...] Maternal Medicine Jonas [address] [place] [address] documented as of this encounter [...] 1 documented in this encounter Care Teams Electronic Typesetting Machine Operator Relationship Specialty Start Date End Date No Pcp, [place] [address] PCP - General Family Medicine 02/21/24 documented as of this encounter
--- OUTSIDE RECORDS SUMMARY | 2025-02-16 08:06 | XMS_ITS | Encounter Summary ---
Author Organization [facility] Address [address] [place] [address] Phone Care Team Providers Care Advocacy Director Name Role Phone Yudelka Lopez Primary Care Provider + Encounter Details Date Type Department Care Team (Late st Contact Info) Description 03/31/2022 Orders Only [facility] [address] [place] [address] Conversion, Onbase Social History Tobacco Use Types [...] on filedocumented in this encounter Care Teams Advocacy Director Relationship Specialty Start Date End Date Yudelka Lopez APRN-CNP [address] [place] [address] PCP - General 01/20/23 documented as of this encounter
--- OUTSIDE RECORDS SUMMARY | 2025-02-16 08:06 | XMS_ITS | Clinical Summary ---
Author Organization [facility] Address [address] [place] [address] Phone Care Team Providers Care Community Support Associate Name Role Phone Yudelka Lopez APRN-NURSING STUDENT Primary Care Provider + Social History Tobacco [...] this topic Medical Devices Implanted Type Area Globe Mounter Device Identifier Shelf Expiration Date Model / Serial / Lot Mesh, Softmesh 3 X 6, Flat Case [id number] Implanted:Qty: 1 on 04/03/2022 by Sly Crocker MD MPH Mesh Abdomen DAVOL 05/14/2024 [id number] / / [id number] Description:Converted from [facility] Care Acute. Please see archived information for full log information. Care Teams Community Support Associate Relationship Specialty Start Date End Date Yudelka Lopez, HOME MAKER-NURSING STUDENT [address] [place] [address] PCP - General 01/20/23
--- OUTSIDE RECORDS SUMMARY | 2025-02-16 08:06 | XMS_ITS | Patient Health Record ---
[facility] [address] [place] [address] Care Team Providers Care Painter And Body Mechanic Apprentice Name Role Phone Yudelka Lopez Primary Care Provider [phone] Leroy Salazar Unavailable [phone] Allergies Allergen (clinical drug ingredient) Drug/Non Drug Allergy documented on EMR Reaction Allergy Type Onset Date Status labetalol Labetalol HCl shortness of breath Drug Allergy Active Results Component Value Reference Range Notes Complete Blood Count Auto Di ff (Not yet reviewed by provider) Interpretation: Performing Lab:, [facility], [address] [place] Notes/Report: For adults in ED, MDW > [...] et reviewed by provider) Interpretation: Performing Lab:, [facility], [address] [facility] Notes/Report: Glucose 73 70-100 mg/dL Random Glucose [...] 6.0-15.0 meq/L Creatinine Clr Calc Pharmacy 164.96 BioFire Detected (Not yet re viewed by provider) Interpretation: Performing Lab:, [facility], [address] [facility] Notes/Report: BioFire Detected Detected Not Detecte This is a duplicate RP2.1 COVID (PCR) result to be used for statistical tracking purpose only. Dipstick and Microscopic (No t yet reviewed by provider) Interpretation: Performing Lab:, [facility], [address] [facility] Notes/Report: Name Collection Type:: Clean-Voided Midstream Color,Urine Light-Yellow Yellow Appearance,Urine Clear Clear Specificy [place],Urine 1.011 1.001-1.030 pH,Urine 6.5 5.0-9.0 Leukocyte Esterase,Urine [...] yet reviewed by provider) Interpretation: Performing Lab:, [facility], [address], [place] Notes/Report: Adenovirus Not detected Bordetella parapertussis Not [...] reviewe d by provider) Interpretation: Performing Lab:, [facility], [address], [place] Notes/Report: Streptococcus pyogenes Ag [Presence] in Throat by Rapid immunoassay Negative for Group A Strep Antigen Note 1 ---- NOTE 2 Results are those of a screening test. NOTE 3 If clinically indica delmer please order a culture. NOTE 4 ---- NOTE 5 Reference range = Negative Complete Blood Count Auto Di ff Reviewed date:08/07/2024 07:53:16 AM Interpretation: Performing Lab:, [facility], [address] [place] Notes/Report: White Blood Count 7.9 3.8-11.6 10*3/uL [...] 10*3/uL Monocyte Distribution Width 17.93 0.00-20.00 % Basic Metabolic Panel Reviewed date:07/14/2024 05:15:14 PM [...] 11.1 6.0-15.0 Creatinine Clr Calc Pharmacy 107.14 Hepatic Panel Reviewed date:07/14/2024 05:15:14 PM Interpretation: Performing Lab:, [facility], [address] [place] Notes/Report: Total Protein 7.2 6.4-8.9 g/dL Albumin Level 4.1 3.5-5.7 g/dL Globulin 3.1 Albumin/Globulin Ratio 1.3 Bilirubin,Total 0.4 0.3-1.0 mg/dL Bilirubin,Direct 0.10 0.03-0.18 mg/dL Bilirubin,Indirect 0.3 Aspartate Amino Transferase 14 13-39 U/L Alanine Aminotransferase 9 7-52 U/L Alkaline Phosphatase 48 34-104 U/L Lipase Reviewed date:07/14/2024 05:15:14 PM Interpretation: Performing Lab: Notes/Report: Lipase 45.0 11.0-82.0 U/L Complete Blood Count Auto Di ff Reviewed date:07/14/2024 05:15:14 PM Interpretation: Performing Lab:, [facility], [address] [place] Notes/Report: For adults in ED, MDW > [...] 10*3/uL Monocyte Distribution Width 20.43 0.00-20.00 % HCG,Urine Reviewed date:07/14/2024 05:15:14 PM Interpretation: Performing Lab: Notes/Report: Name Collection Type:: Clean-Voided Midstream HCG Qualitative,Urine Negative COVID-19 PCR Reviewed date:07/14/2024 05:15:14 PM Interpretation: Performing Lab:, [facility], [address] , [facility] Notes/Report: This is a duplicate Cepheid Xpert Xpress CoV-2/Flu/RSV Plus RNA by RT-PCR result to be used for statistical tracking purpose only. Cepheid COVID PCR Negative Negative Negative Dipstick and Microscopic Reviewed date:07/14/2024 05:15:14 PM Interpretation: Performing Lab:, [facility], [address] [place] Notes/Report: Name Collection Type:: Clean-Voided Midstream Color,Urine Yellow Yellow Appearance,Urine Clear Clear Specificy [place],Urine 1.030 1.001-1.030 pH,Urine 6.0 5.0-9.0 Leukocyte Esterase,Urine Negative Negative Nitrite,Urine Negative Negative Protein,Urine 20 Negative mg/dL Glucose,Urine (UA) Normal Normal Ketones,Urine 2+ Negative Urobilinogen,Urine 3 Normal mg/dL Bilirubin,Urine Negative Negative Occult Blood,Urine 1+ Negative RBC,Urine 20-49 0-4 WBC,Urine 5-9 0-4 Squamous Epithelial Cell,Urine 5-9 0-2 Bacteria,Urine Rare None Seen Hyaline Casts,Urine None 0-8 Mucus,Urine 2+ COVID-19 / Flu A/B / RSV PCR Reviewed date:07/14/2024 05:15:14 PM Interpretation: Performing Lab:, [facility], [address] [place] Notes/Report: COVID-19 Cepheid Result Negative for KELLY S-CoV-2 RNA by RT-PCR Flu A Cepheid Result Negative for Flu A RNA by RT-PCR Flu B Cepheid Result Negative for Flu B RNA by RT-PCR RSV Cepheid Result Negative for RSV RNA by RT-PCR COVID19 Blank Space ---- ------ Reference: Negative COVID19 Blank Space ---- ------ Cepheid Disclaimer The Cepheid Xpert Xp ress CoV-2/Flu/RSV Plus has Cepheid Disclaimer not been FDA cleared or approved; this test has Cepheid Disclaimer been authorized by Bryce BRANCH under [...] is terminated or Cepheid Disclaimer revoked sooner. CT abdomen pelvis w con Reviewed date:07/14/2024 04:15:57 PM Interpretation: Performing Lab: Notes/Report: [facility] [place] [address] CT Scan Report Signed Patient: Leandra Fonseca MR#: [id number] : 1990 Acct:[id number] Age/Sex: 34 / F ADM Date: 07/14/24 Loc: ER Room: Type: [facility] ER Attending Dr: Copies to: DO Lety [...] Mancera Jr., D.O.07/14/2024 2:43 PM Dictation Location: [place] [address] Transcribed By: [facility] 07/14/24 1443 Dictated By: Leroy Mancera Jr, DO 07/14/24 1438 Signed By: <Electronically signed by Leroy Mancera Jr, DO in [place]> 07/14/24 1443 Comprehensive Metabolic Pane l Reviewed date:08/07/2024 07:53:16 AM Interpretation: Performing Lab:, [facility], [address] [place] Notes/Report: Glucose 98 70-100 mg/dL Random Glucose [...] 6.0-15.0 meq/L Creatinine Clr Calc Pharmacy 119.09 HCG,Quantitative Reviewed date:08/07/2024 07:53:16 AM Interpretation: Performing Lab:, [facility], [place] Notes/Report: Approximate Approximate hCG Gestational Age Range (mIU/ml) (weeks) 0.2-1 5-50 1-2 50-500 2-3 100-5,000 3-4 500-10,000 4-5 1,000-50,000 5-6 10,000-100,000 6-8 15,000-200,000 8-12 10,000-100,000 HCG,Quantitative 64405.00 Ethyl Alcohol Profile Reviewed date:08/07/2024 07:53:16 AM Interpretation: Performing Lab:, [facility], [address] [place] Notes/Report: Ethanol <10 Percent Ethanol TNP Reason For Referral No Information Social History [...] down, depressed, or hopeless More than h care home the days Trouble falling or staying a [...] 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 Stress is when someone feels tense, nervous, anxious, or cant sleep at night because their mind is troubled Not at all In the past year have you sp ent more than 2 nights in a row in a correction, chcf, retirement center, or juvenile correctional facility? No Are [...] Problem Status W/U Status Risk Notes Problem 28706655 Hyperthyroidism (E05.90) Active confirmed Problem 851361281 Thyroid nodule (E04.1) Active confirmed Problem 00628710 Iron deficiency anemia, unspecified iron deficiency anemia type (D50.9) Active confirmed Problem 4851654 Migraine with au ra and without status migrainosus, not intractable (G43.109) Active confirmed Problem 989762799 Endometriosis (N80.9) Active confirmed Problem 184796707 Anxiety disorder , unspecified (F41.9) Active confirmed Encounters Encounter Location Date Provider Diagnosis [facility] [address] [place] [address] 07/18/2024 [facility] [address] [place] [address] 08/13/2024 [facility] [address] [place] [address] 12/19/2024 Leroy Salazar Encounter for dental examination and cleaning with abnormal findings Z01.21 ; Other dental procedure status Z98.818 ; Cracked tooth K03.81 ; Necrosis of pulp K04.1 and Dental caries on pit and fissure surface penetrating into dentin K02.52 Assessments Encounter Date Diagnosis (ICD Code) Assessment [...] Insured Coverage Start Date Coverage End Date [facility] [address] [place] [address] [id number] LEANDRA FONSECA Other 1 [employer] [place] Medicaid [address] [place] [address] [id number] LEANDRA FONSECA Self - patient is the insured 3 3 Wrap [employer] [facility] [address] [place] [address] [id number] LEANDRA FONSECA Self - patient is the insured 3 3 Wrap [employer] [place] [address] [place] [address] [id number] LEANDRA FONSECA Self - patient is the insured 3 zDENTAL DQ [facility] [place]P [place]-termed 22 [address] [place] [address] [id number] LEANDRA FONSECA Self - patient is the insured 2 zDental MEDICAID [facility] after [facility] CHP-terme d 22 [address] [place] [phone] [id number] LEANDRA FONSECA Self - patient is the insured 2 DENTAL [employer] [address] [address] [place] [address] [id number] LEANDRA FONSECA 5 Dental Wrap [facility] [employer] [address] [place] [address] [phone] [id number] LEANDRA FONSECA Self - patient is the insured 5 Dental [employer] DQ [address] [address] [place] [address] [id number] LEANDRA FONSECA Self - patient is the insured 5 Medical (General) History Medical History History ICD Code hypertension anemia Covid 19 Surgical History Surgery Date(Month/Year) section-x2 Endometrial Tumor Resection 04/03/22 Hospitalization History Reason Date(Month/Year) see surgical Child x2
--- OUTSIDE RECORDS SUMMARY | 2025-02-16 08:06 | XMS_ITS | Encounter Summary ---
Author Organization [facility] Address [facility]-[id number] [address] [place] [address] Care Team Providers Care Soccer Player Name Role Phone No Pcp, No Pcp Primary Care Provider Unavailabl e Encounter Details Date Type Department Care Team (Late Contact Info) Description 12/01/2024 Orders Only Maternal- Medicine at [facility] [address] [place] [phone] Natalie Díaz, RN Choroid plexus cyst of [...] Maternal Medicine [place] [address] [place] [address] documented as of this encounter [...] 1 documented in this encounter Care Teams Soccer Player Relationship Specialty Start Date End Date No Pcp, [place] [address] PCP - General Family Medicine 02/21/24 documented as of this encounter
--- OUTSIDE RECORDS SUMMARY | 2025-02-16 08:06 | XMS_ITS | Clinical Summary ---
Author Organization [facility] Address [address] [place] [address] Care Team Providers Care Blueprint Tracer Name Role Phone Unavailable Primary Care Provider [...] Plan of Treatment Not on file Insurance [facility] [place] Advance Directives * Full Code (Latest Code Status on File) Date Activated Date Inactivated Comments 01/06/2016 3:26 PM 01/10/2016 9:07 PM * Full Code Date Activated Date Inactivated Comments 01/06/2016 12:49 PM 01/06/2016 3:26 PM * Full Code Date Activated Date Inactivated Comments 01/05/2016 8:33 PM 01/06/2016 12:49 PM
--- OUTSIDE RECORDS SUMMARY | 2025-02-16 08:06 | XMS_ITS | Encounter Summary ---
Author Organization [facility] Address [id number] [address] [place] [address] Care Team Providers Care Art Specialist Name Role Phone No Pcp, No Pcp Primary Care Provider Unavailabl e Encounter Details Date Type Department Care Team (Late Contact Info) Description 10/10/2024 Abstract Maternal- Medicine at [facility] [address] [place] [address] Torey Barnett MD [address] [place] [address] Social History Tobacco Use Types Packs/Day Years [...] 02/26/2025 2:15 PM EDT Appointment Maternal Medicine [place] [address] [place] [address] documented as of this encounter Procedures Procedure Name Priority Date/Time Associated Diagnosis Comments RUBELLA IGG IMMUNE STATUS Routine 09/11/2024 SYPHILIS TOTAL(UNKNOWN SYPHILIS STATUS) Routine 09/11/2024 documented in this encounter Results * Rubella IGG immune status (09/11/2024) Rubella immune IgG 0.96 (immune) MANUALLY TRANSCRIBED RESULTS us Not In System Ref Prov LAB BLOOD ORDERABLES Larissa l Result Performing Organization Address City/[facility] Co de Phone Number MANUALLY TRANSCRIBED RESULTS * Syphilis Total(Unknown Syphilis Status) (09/11/2024) Syphilis Total non- reactive MANUALLY TRANSCRIBED RESULTS us Not In System Ref Prov LAB BLOOD ORDERABLES Larissa l Result Performing Organization Address City/[facility]/ZIP Co de Phone Number MANUALLY TRANSCRIBED RESULTS documented in this encounter Visit Diagnoses Not on filedocumented in this encounter Care Teams Art Specialist Relationship Specialty Start Date End Date No Pcp, [place] [address] PCP - General Family Medicine 02/21/24 documented as of this encounter
--- OUTSIDE RECORDS SUMMARY | 2025-02-16 08:06 | XMS_ITS | Encounter Summary ---
Author Organization [facility] Address [address] [place] [address] [place] [address] Care Team Providers Care Vulcanizer Rubber Plate Name Role Phone Sarah Lopez DO Unavailable [phone] Encounter Details Date Type Department Care Team (Late st Contact Info) Description 02/11/2025 Bamboo flowsheet [facility] [address] [place] [address] Priscilla Warren PA [address] [place] [address] [address] [place], [place] [address] Social History Tobacco Use Types Packs/Day Years [...] Description 02/24/2025 11:40 AM EDT Routine [facility] [address] [facility] [address] [address] Malcolm Pendleton [address] [place] [address] 11/19/2025 10:50 AM EST Office Visit [facility] [address] [place] [address] Kayleigh Chung, HOUSEKEEPER SUPERVISOR-CLINICAL DATA ASSISTANT [address] [place] [address] documented as of this encounter Visit Diagnoses Not on filedocumented in this encounter Care Teams Vulcanizer Rubber Plate Relationship Specialty Start Date End Date Sarah Lopez DO [address] [place] [address] Referring Physician Emergency Medicine 02/18/23 documented as of this encounter
--- OUTSIDE RECORDS SUMMARY | 2025-02-16 08:07 | XMS_ITS | Encounter Summary ---
Author Organization [facility] Address [id number] [address] [place] [address] Care Team Providers Care Security Control Center Operator Name Role Phone No Pcp, No Pcp Primary Care Provider Unavailabl e Encounter Details Date Type Department Care Team (Late st Contact Info) Description 02/04/2025 Telephone Maternal Medicine [place] [id number] [facility] [address] [place] [address] Josey Valentine Social History Tobacco [...] 02/26/2025 2:15 PM EDT Appointment Maternal Medicine [place] [id number] [facility] [address] [place] [address] documented as of this encounter Visit Diagnoses Not on filedocumented in this encounter Care Teams Security Control Center Operator Relationship Specialty Start Date End Date No Pcp, [place] [address] PCP - General Family Medicine 02/21/24 documented as of this encounter
--- OUTSIDE RECORDS SUMMARY | 2025-02-16 08:07 | XMS_ITS | Clinical Summary ---
Author Organization [facility] Healthcare Address [address] [place] [address] Care Team Providers Care Mold Holder Name Role Phone Sarah Lopez DO Unavailable [phone] Allergies Active Allergy Reactions Criticality Noted Date [...] Encounters Date Type Department Care Team Description 02/12/2025 Clinisync Result Encounter [facility] External Department Unsolicited Maria Pendleton DO 02/11/2025 10:50 AM EDT Routine [facility] [address] [place] [phone] Priscilla Warren PA Third trimester ; 32 weeks gestation of ; Nausea 02/11/2025 Bamboo flowsheet [facility] [address] [place] [address] Priscilla Warren PA 02/04/[address] Tele[address] [facility] [address] [place] [phone] Suze Lopez LPN 01/30/2025 Abstract [facility] [address] [place] [address] Mary Cruz MA 01/28/2025 External Result Encounter NOMS External Department Unsolicited Priscilla Warren PA 01/27/2025 8:30 AM EDT Routine [facility] [address] [place] [address] Maria Pendleton DO Third trimester ; 30 weeks gestation of ; H/O pre-eclampsia in prior , currently ; H/O delivery, currently ; Request for sterilization 01/27/2025 Abstract [facility] [place] [address] [place] [address] Maria Pendleton DO 01/27/2025 Bamboo flowsheet [facility] [address] [place] [address] Maria Pendleton, DO 01/20/2025 Abstract [facility] [address] [place] [address] Maria Pendleton, DO 01/15/2025 Telephone [facility] [address] [place] [address] Christy Cui MA 01/14/2025 11:20 AM EDT Routine [facility] [address] [place] [address] Reema Leslie, JEFFERSON Third trimester ; 28 weeks gestation of 01/14/2025 External Result Encounter NOMS External Department Unsolicited Maria Pendleton, DO 01/14/2025 Abstract [facility] [address] [place] [address] Maria Pendleton, DO 01/14/2025 Bamboo flowsheet [facility] [address] [place] [address] Reema Leslie, JEFFERSON 01/09/2025 Results Follow-Up [facility] [address] [place] [address] Suze Lopez LPN 01/08/2025 Results Follow-Up [facility] [address] [place] [phone] Suze Lopez LPN 01/08/2025 Telephone [facility] [address] [place] [address] Suze Lopez LPN 01/08/2025 Clinisync Result Encounter NOMS External Department Unsolicited Maria Pendleton, DO 01/06/2025 Results Follow-Up [facility] [address] [place] [address] Suze LopezXANDER 01/06/2025 Clinisync Result Encounter NOMS External Department Unsolicited Priscilla Warren PA 12/30/2024 11:10 AM EDT Routine [facility] [address] [place] [address] Maria Pendleton, DO Second trimester ; 26 weeks gestation of ; Seen in emergency room; Exposure to STD; HSV (herpes simplex virus) infection 12/30/2024 External Result Encounter NOMS External Department Unsolicited Maria Pendleton, DO 12/30/2024 Bamboo flowsheet [facility] [address] [place] [address] Maria Pendleton, DO 12/29/2024 Abstract [facility] [address] [place] [address] Maria Pendleton, 12/23/2024 Telephone [facility] [address] [place] [address] Christy Cui MA 12/17/2024 Abstract [facility] [address] [place] [address] Maria Pendleton, DO 12/16/2024 Abstract [facility] [address] [place] [address] Maria Pendleton, DO 12/02/2024 9:30 AM EDT Routine [facility] [address] [place] [address] Priscilla Warren PA 22 weeks gestation of ; Second trimester ; Diabetes mellitus screening; Tooth pain; Nausea 12/02/2024 Bamboo flowsheet [facility] [address] [place] [address] Priscilla Warren PA 11/24/2024 Abstract [facility] [address] [place] [address] Maria Pendleton, DO 11/21/2024 Abstract [facility] [address] [place] [address] Maria Pendleton, DO 11/21/2024 External Result Encounter [facility] [address] [place] [phone] Maria Pendleton, DO 11/20/2024 Telephone [facility] [address] [place] [phone] Cristin Perry LPN Prior Authorization 11/19/2024 Telephone [facility] [address] [place] [phone] Maria Pendleton, DO 11/18/2024 10:55 AM EST Office Visit [facility] [address] [place] [phone] Kayleigh Chung, HOG RINGER-ORDERLY Acne vulgaris (Primary Dx); Other atopic dermatitis 11/18/2024 Bamboo flowsheet [facility] [address] [place] [address] Kayleigh Chung, HOG RINGER-ORDERLY 11/18/2024 Travel from Last 3 Months Family History Medical History Relation Name Comments Arthritis Father Tucker Deep vein thrombosis Father Tucker Diabetes Father Tucker Heart attack Father Tucker Heart disease Father Tucker Hypertension Father Tucker Diabetes Mother Makenna Hypertension Mother Amkenna Leukemia Paternal Grandfather Crohn's disease Sister 1 [...] EDT Routine [facility] [address] [place] [phone] Maria Pendleton, DO [address] [place] [address] 11/19/2025 10:50 AM EST Office Visit [facility] [address] [place] [phone] Kayleigh Chung, HOG RINGER-ORDERLY [address] [place] [address] Procedures Procedure Name Priority Date/Time Associated Diagnosis Comments US OB BPP W NON-STRESS 02/12/2025 9:06 AM EDT POCT URINALYSIS DIPSTICK Routine 02/11/2025 11:00 AM [...] 01/08/2025 8:05 AM EDT TBH UA (CLEAN/CATCH) CHIEF INTERNAL AUDITOR/MICRO IF IND. Routine 01/08/2025 8:05 AM EDT GLUCOSE 1 HOUR Routine 01/06/2025 10:42 AM EDT ALL CBC WITH AUTO DIFF Routine 01/06/2025 10:42 AM EDT RECURRENT VAGINITIS (HTRX) Routine 12/30/2024 3:26 PM EDT POCT URINALYSIS DIPSTICK Routine 12/02/2024 9:32 AM EDT 22 weeks gestation of Second trimester US OB 14+ WEEKS ANATOMY SCAN 11/21/2024 3:40 PM EST from Last 3 Months Results * US OB BPP W NON-STRESS (02/12/2025 9:06 AM EDT) Anatomical Region Laterality Modality Other 02/12/2025 9:06 AM EDT Narrative 02/12/2025 9:08 [place] [address] Ultrasound Report Signed Patient: LISHA VALENTIN MR#: [id number] : 1990 Acct:[id number] Age/Sex: 34 / F ADM Date: 02/12/25 Loc: [facility] 250-[address]: Maria Pendleton D.O. Ordering Physician: Maria Pendleton D.O. Date of Service: 02/12/25 Procedure(s): US OB BPP w non-stress Accession Number(s): [id number] cc: Maria Pendleton D.O.; Physician,Non-Staff Kacey [place] [id number] Patient Name: LISHA VALENTIN MRN: [facility]:[id number] date: 1990 Sex: F Assigned Patient Location: [facility] Current Patient Location: [facility] Accession/Order Number: [id number] Exam Date: 02/12/2025 09:04 Report Date: 02/12/2025 09:06 At the request of: MARIA PENDLETON DO Procedure: US OB BPP w non-stress BIOPHYSICAL PROFILE: CLINICAL INFORMATION: HISTORY OF LABOR COMPARISON: None There is a single live intrauterine gestation in cephalic presentation. The reported gestational age is 32 weeks 4 days. The heart rate [id number] beats per minute. FINDINGS: TONE: 1 or more episodes of activity extension and flexion of extremity or opening and closing of the hand [Y] 2/2 GROSS BODY MOVEMENTS: 3 or more discrete body or limb movements [Y] 2/2 BREATHING MOVEMENTS: 1 or more episodes of breathing lasting at least 30 seconds [Y] 2/2 VIDA: A single deepest vertical pocket of amniotic fluid greater than 2 cm [Y] 2/2 VIDA: 14.7 cm. This is in normal range. Total score: 8/8 US/US OB BPP w non-stress IMPRESSION: NORMAL BIOPHYSICAL PROFILE. Impression dictated by: Michell Miller M.D. 02/12/2025 9:06 AM Dictation Location: [place] [address] Electronically authenticated by: [id number] Y Date: 02/12/2025 09:06 Dictated By: Michell Miller M.D. Signed By: 02/12/25907 DD/ 5 TD/TT: Senior Research Consultant: Procedure Note Radiology, Radiologist, - 02/12/2025 [place] [address] Ultrasound Report Signed Patient: LISHA VALENTIN GMR#: [id number] : 1990Acct:[id number] Age/Sex: 34 / FADM Date: 02/12/25 Loc: [facility] 250-[address]: Maria Pendleton D.O. Ordering Physician: Maria Pendleton D.O. Date of Service: 02/12/25 Procedure(s): US OB BPP w non-stress Accession Number(s): [id number] cc: Maria Pendleton D.O.; Physician,Non-Staff [place]acey [place] [address] Patient Name: LISHA VALENTIN MRN: [facility]:[id number] date: 1990 Sex: F Assigned Patient Location: [facility] Current Patient Location: [facility] Accession/Order Number: [id number] Exam Date: 02/12/2025 09:04 Report Date: 02/12/2025 09:06 At the request of: MARIA PENDLETON DO Procedure: US OB BPP w non-stress BIOPHYSICAL PROFILE: CLINICAL INFORMATION: HISTORY OF LABOR COMPARISON: None There is a single live intrauterine gestation in cephalic presentation.The reported gestational age is 32 weeks 4 days. The heart [id number] beats per minute. FINDINGS: TONE: 1 or more episodes of activity extension and flexion of extremity or opening and closing of the hand [Y] 2/2 GROSS BODY MOVEMENTS: 3 or more discrete body or limb movements [Y] 2/2 BREATHING MOVEMENTS: 1 or more episodes of breathing lastingat least 30 seconds [Y] 2/2 VIDA: A single deepest vertical pocket of amniotic fluid greater than 2 cm [Y] 2/ VIDA: 14.7 cm. This is in normal range. Total score: 8/ US/US OB BPP w non-stress IMPRESSION: NORMAL BIOPHYSICAL PROFILE. Impression dictated by: Michell Miller M.D. 02/12/2025 9:06 AM Dictation Location: [place] [address] Electronically authenticated by: [id number] Y Date: 9:06 Dictated By: Michell Miller M.D. Signed By:02/12/25907 DD/ 5 TD/TT: Senior Research Consultant: us Maria Helder DO [facility] Final Result * POCT urinalysis dipstick manually resulted (02/11/2025 [...] - 362 mg/dL 01/28/2025 11:02 AM EDT [facility] Other Topography unknown / Unknown 01/28/2025 8:32 AM EDT 01/28/2025 8:32 AM EDT Priscilla SRIVASTAVA LAB BLOOD ORDERABLES Final Resul t Performing Organization Address City/[facility]/ZIP Co de Phone Number [address] [address], [facility] [address] [place] [address] * Ferritin (01/28/2025 8:32 AM EDT) FERRITIN 43.0 11.0 - 306.8 ng/mL 01/28/2025 11:09 AM EDT [facility] Other Topography unknown / Unknown 01/28/2025 8:32 AM EDT 01/28/2025 8:32 AM EDT Priscilla SRIVASTAVA LAB BLOOD ORDERABLES Final Resul t Performing Organization Address [facility] de Phone Number [place] [phone], [facility] [address] [place] [address] * (ABNORMAL) RECURRENT VAGINITIS (HTRX) (01/14/2025 11:52 AM EDT) Only the most recent of2 resultswithin the time period is included. ATOPOBIUM VAGINAE 25.517(A) 19.961 - 24.689 ppm 01/15/2025 7:26 AM EDT [facility] ATOPOBIUM VAGINAE Detected(A) 19.961 - 24.689 ppm 01/15/2025 7:26 AM EDT [facility] BVAB 2,3 (BACTERIAL VAGINOSIS ASSOCIATED BACTERIA 2, 3); MOBILUNCUS SPP 23.796(A) 19.961 - 24.689 ppm 01/15/2025 7:26 AM EDT [facility] BVAB 2,3 (BACTERIAL VAGINOSIS ASSOCIATED BACTERIA 2, 3); MOBILUNCUS SPP Detected(A) 19.961 - 24.689 ppm 01/15/2025 7:26 AM EDT [facility] MARION ALBICANS, PARAPSILOSIS, TROPICALIS 0.000 19.961 - 30.770 ppm 01/15/2025 7:26 AM EDT [facility] [place] MARION ALBICANS, PARAPSILOSIS, TROPICALIS Not Detected 19.961 - 30.770 ppm 01/15/2025 7:26 AM EDT [facility] [place] MARION GLABRATA 0.000 23.000 - 32.138 ppm 01/15/2025 7:26 AM EDT [facility] [place] MARION GLABRATA Not Detected 23.000 - 32.138 ppm 01/15/2025 7:26 AM EDT [facility] [place] MARION KRUSEI 0.000 23.000 - 32.271 ppm 01/15/2025 7:26 AM EDT [facility] MARION KRUSEI Not Detected 23.000 - 32.271 ppm 01/15/2025 7:26 AM EDT [facility] CHLAMYDIA TRACHOMATIS 0.000 23.000 - 31.467 ppm 01/15/2025 7:26 AM EDT [facility] CHLAMYDIA TRACHOMATIS Not Detected 23.000 - 31.467 ppm 01/15/2025 7:26 AM EDT [facility] GARDNERELLA VAGINALIS 0.000 19.961 - 24.689 ppm 01/15/2025 7:26 AM EDT [facility] GARDNERELLA VAGINALIS Not Detected 19.961 - 24.689 ppm 01/15/2025 7:26 AM EDT [facility] MEGASPHAERA (TYPES 1, 2) 0.000 19.961 - 24.689 ppm 01/15/2025 7:26 AM EDT [facility] MEGASPHAERA (TYPES 1, 2) Not Detected 19.961 - 24.689 ppm 01/15/2025 7:26 AM EDT [facility] NEISSERIA GONORRHOEAE 0.000 23.000 - 32.117 ppm 01/15/2025 7:26 AM EDT [facility] NEISSERIA GONORRHOEAE Not Detected 23.000 - 32.117 ppm 01/15/2025 7:26 AM EDT [facility] TRICHOMONAS VAGINALIS 0.000 23.000 - 32.119 ppm 01/15/2025 7:26 AM EDT [facility] TRICHOMONAS VAGINALIS Not Detected 23.000 - 32.119 ppm 01/15/2025 7:26 AM EDT [facility] MYCOPLASMA GENITALIUM 0.000 19.961 - 24.689 ppm 01/15/2025 7:26 AM EDT [facility] MYCOPLASMA GENITALIUM Not Detected 19.961 - 24.689 ppm 01/15/2025 7:26 AM EDT [facility] Tissue 01/14/2025 11:5 2 AM EDT 01/15/2025 2:13 AM EDT Maria Helder DO LAB BLOOD ORDERABLES Final Resul t Performing Organization Address City/[facility]/ZIP Co de Phone Number [facility] [address] [facility] [place] [address] * TB CREATININE (01/08/2025 8:35 AM EDT) Pathologist [facility] CREATININE 0.63 0.55 - 1.02 mg/dL TB TB EGFR-AF [place] >60 >=60 mL/min/1.7 3m 2 TBH TB EGFR-NON AF [place] >60 >=60 mL/min/1.7 3m 2 [facility] 01/08/2025 8:35 AM EDT 01/08/2025 8:39 AM EDT Narrative [facility]IN[facility] - 01/08/2025 8:49 AM EDT Maria Helder DO [facility] Final Result [facility] * (ABNORMAL) ALL CBC WITH AUTO DIFF (01/08/2025 8:35 AM EDT) Only the most recent of2 resultswithin the time period is included. [facility] WBC 8.9 4.0 - 11.0 10 3/uL [...] Maria Helder DO CLINIS[facility] Final Result [facility] * ALL BUN (01/08/2025 8:35 AM EDT) BLOOD UREA NITROGEN 8.0 7.0 - 18.0 mg/dL [facility] 01/08/2025 8:35 AM EDT 01/08/2025 8:39 AM EDT Narrative CLINISYNC - 01/08/2025 8:49 AM EDT Maria Helder DO CLINISYNC Final Result Performing Organization Address [facility] de Phone Number [facility] * (ABNORMAL) [facility] URINE MICROSCOPIC ONLY (01/08/2025 8:05 AM EDT) Pathologist [facility] TBH WBC 5-10(A) NONE SEEN #/HPF TBH [...] DO CLINISYNC Final Result Performing Organization Address [facility] de Phone Number [facility] * (ABNORMAL) [facility] UA (CLEAN/CATCH) CHIEF INTERNAL AUDITOR/MICRO IF IND. (01/08/2025 8:05 AM EDT) COLOR [...] DO CLINISYNC Final Result Performing Organization Address City/[facility]/ZIP Co de Phone Number [facility] * GLUCOSE 1 HOUR (01/06/2025 10:42 AM EDT) Pathologist [facility] GLUCOSE 1 HOUR 124 <130 mg/dL [facility] 01/06/2025 10:4 2 AM EDT 01/06/2025 10:43 AM EDT Narrative CLINISYNC - 01/06/2025 11:08 AM EDT us Priscilla SRIVASTAVA LAB BLOOD ORDERABLES Final Resul t Performing Organization Address City/[facility] [[email or web address]] Co de Phone Number [facility] * US OB 14+ weeks anatomy scan (11/21/2024 3:40 PM EST) Anatomical Region Laterality Modality Body Ultrasound 11/21/2024 3:40 PM EST Narrative 11/21/2024 3:40 PM EST THIS EXAM WAS PERFORMED AT [facility] NAME: MARIAN HUSAIN : 1990 SEX: F Accession Number: [id number] ORDERING PHYSICIAN: TOREY MONTGOMERY REFERRING PHYSICIAN: MARIA PENDLETON Coding ----- --------- Procedures 41651: Ultrasound, uterus, real time with image documentation, and maternal evaluation plus detailed anatomic examination, transabdominal approach;single or first gestation 11612: Transvaginal Ultrasound (OB) Indication ----- --------- Screening [...] 0 lb 13 oz EFW by Hadlock ([id number]) Head / Face / Neck Biometry: Cephalic index 0.73 5% [place]ides Administrative Resources Associate 4.4 mm CM 4.2 mm 20% Nicolaides [...] Heart / Thorax RVOT view. LVOT view. 6-wtonvl-psqzpyj view. Bicaval view. Extremities / Left hand. [...] Right choroid plexus cyst is identified. Per [facility] guidelines, isolated chorioid plexus cysts (CPCs) are a normal variant of no clinical importance with no indication for follow-up ultrasound imaging or evaluation in the setting of low risk cell free DNA screening. Double right renal artery identified. Recommendations ----- --------- Please see [facility] documentation from today. The patient is scheduled in four to six week(s) to complete anatomic survey. Subsequent follow up or other follow up as clinically determined by primary OB provider unless otherwise specified by [facility]. Results forwarded to ordering provider so they can follow up with the patient as necessary. The copy-to physician of this order is MARIA Brito The ordering physician of this order is TOREY Pineda Procedure Note Radiology, Radiologist, MD - 11/21/2024 THIS EXAM WAS PERFORMED AT [facility] NAME: MARIAN HUSAIN : 1990 SEX: F Accession Number: [id number] ORDERING PHYSICIAN: TOREY MONTGOMERY REFERRING PHYSICIAN: MARIA PENDLETON Coding ----- --------- Procedures [id number]: Ultrasound, uterus, real time with imagedocumentation, and maternal evaluation plus detailed anatomic examination, transabdominalapproach;single or first gestation 85609: Transvaginal Ultrasound (OB) Indication ----- --------- Screening [...] 0 lb 13 oz EFW by Hadlock ([id number]) Head / Face / Neck Biometry: Cephalic index 0.73 5% Nicolaides Administrative Resources Associate 4.4 mm CM 4.2 mm 20% Nicolaides [...] Heart / Thorax RVOT view. LVOT view. 8-afcwbt-gpgbwnc view. Bicavalview. Extremities / Left hand. Skeleton [...] Right choroid plexus cyst is identified. Per [facility] guidelines, isolated chorioid plexus cysts (CPCs) are a normalvariant of no clinical importance with no indication for follow-up ultrasound imaging or evaluation in the setting of lowrisk cell free DNA screening. Double right renal artery identified. Recommendations ----- --------- Please see M documentation from today. The patient is scheduled in four to six week(s) to complete anatomicsurvey. Subsequent follow up or other follow up as clinically determined byprimary OB provider unless otherwise specified by [facility]. Results forwarded to ordering provider so they can follow up with thepatient as necessary. The copy-to physician of this order is MARIA Brito The ordering physician of this order is TOREY Pineda us Maria Pendleton DO IMG OB US PROCEDURES Final Resul t from Last 3 Months Insurance [employer] [facility] Care Teams Mold Holder Relationship Specialty Start Date End Date Sarah Lopez DO [address] [place] [address] Referring Physician Emergency Medicine 02/18/23
--- OUTSIDE RECORDS SUMMARY | 2025-02-16 08:07 | XMS_ITS | Encounter Summary ---
Author Organization [facility] Address [address] [place] [address] [place] [address] Care Team Providers Care Senior Software Engineer Analytics Name Role Phone aSrah Lopez DO Unavailable [phone] Encounter Details Date Type Department Care Team (Late Contact Info) Description 11/10/2024 Abstract [facility] [address] [place] [address] Ingrid Esquivel NP Social History Tobacco Use [...] Routine [facility] [address] [place] [phone] Malcolm Pendleton DO [address] [place] [address] 11/19/2025 10:50 AM EST Office Visit [facility] [address] [place] [address] Kayleigh Chung, DUCK FARMER-CORPORATE SAFETY MANAGER [address] [place] [address] documented as of this encounter Visit Diagnoses Not on filedocumented in this encounter Care Teams Senior Software Engineer Analytics Relationship Specialty Start Date End Date Sarah Lopez DO [address] [place] [address] Referring Physician Emergency Medicine 02/18/23 documented as of this encounter
--- OUTSIDE RECORDS SUMMARY | 2025-02-16 08:07 | XMS_ITS | Clinical Summary ---
Author Organization [facility] Address [id number] [address] [place] [address] Care Team Providers Care Material Handling Crew Supervisor Name Role Phone No Pcp, No Pcp [...] Care Team Description 02/04/2025 Telephone [facility] [place] [address] [place] [address] Josey Valentine 01/28/2025 Orders Only Maternal- Medicine at [facility] [address] [facility] [place] [address] Marci Coppola, FER Thalassemia alpha carrier (Primary Dx); Family history of sickle cell trait; Family history of DVT; History of anemia; Choroid plexus cyst of fetus affecting care of mother, antepartum, fetus 1; Abnormal genetic test during ; Previous delivery affecting , antepartum; History of pre-eclampsia in prior , currently in first trimester 01/28/2025 Telephone [facility]aternal [facility] [place] [address] [place] [address] Josey Valentine 01/27/2025 9:56 AM EDT - 01/27/2025 11:59 PM EDT Hospital Encounter [facility] - Ultrasound [address] [place] [address] History of anemia Discharge Disposition: Home 01/27/2025 Travel 01/13/2025 9:00 AM EDT - 01/13/2025 11:59 PM EDT Hospital Encounter [facility] - Ultrasound [address] [place] [address] Alpha thalassemia silent carrier Discharge Disposition: Home 01/13/2025 Travel 12/16/2024 8:46 AM EDT - 12/16/2024 11:59 PM EDT Hospital Encounter [facility] - Ultrasound [address] [place] [address] Alpha thalassemia silent carrier Discharge Disposition: Home 12/16/2024 Travel 12/12/2024 9:00 AM EDT Telemedicine Maternal- Medicine at [facility] [address] [place] [address] Torey Montgomery MD Allen, Madeline P, LG Thalassemia alpha carrier (Primary Dx); Abnormal genetic test during ; Family history of sickle cell trait; Family history of DVT 12/12/2024 Travel 12/09/2024 Telephone Maternal- Medicine at [facility] [address] [place] [address] Natalie Díaz RN 12/09/2024 Orders Only Maternal- Medicine at [facility] [address] [place] [address] Natalie Díaz RN Choroid plexus cyst of fetus affecting care of mother, antepartum, fetus 1 12/09/2024 Orders Only Maternal- Medicine at [facility] [address] [place] [address] Natalie Díaz RN Thalassemia alpha carrier (Primary Dx) 12/08/2024 Telephone Maternal- Medicine at [facility] [address] [place] [address] Josey Valentine 12/08/2024 Documentation Maternal- Medicine at [facility] [address] [place] [address] Torey Montgomery MD 12/01/2024 Orders Only Maternal- Medicine at [facility] [address] [place] [address] Natalie Díaz RN Choroid plexus cyst of fetus affecting care of mother, antepartum, fetus 1 11/21/2024 11:00 AM EST Office Visit Maternal- Medicine at [facility] [address] [facility] [place] [address] Torey Montgomery MD Previous delivery affecting , antepartum (Primary Dx); History of pre-eclampsia in prior , currently in first trimester; History of anemia; Choroid plexus cyst of fetus affecting care of mother, antepartum, fetus 1 11/21/2024 9:35 AM EST - 11/21/2024 11:59 PM EST Hospital Encounter [facility] - [facility] [address] [facility] [place] [address] Screening, , for anatomic survey Discharge Disposition: Home 11/21/2024 Orders Only Maternal- Medicine at [facility] [address] [place] [address] Priscilla Haider LPN History of anemia (Primary [...] 02/26/2025 2:15 PM EDT Appointment [facility] [place] [address] [place] [address] [address] [place] [address] Health Maintenance Due Date Last Done Comments Depression Screening 2004 Adult BMI Follow Up Plan 2010 Influenza Vaccine 05/18/2025 09/01/2021 Adult BMI Screening 11/21/2025 11/21/2024 Tobacco Screening 11/21/2025 11/21/2024 DTaP,Tdap and Td Vaccines (3 - Td or Tdap) 01/09/2026 01/10/2016, 03/22/2009 Pap Smear 10/14/2027 10/14/2024 Medical Devices Not on file Procedures Procedure Name Priority Date/Time Associated Diagnosis Comments [facility] OB FOLLOW-UP, 1 FETUS Routine 01/27/2025 10:46 AM EDT History of anemia US [facility] LMTD OB, 1 OR MORE FETUS Routine 01/13/2025 9:29 AM EDT Alpha thalassemia silent carrier US [facility] LMTD OB, 1 OR MORE FETUS Routine 12/16/2024 9:44 AM EDT Alpha thalassemia silent carrier [facility] COMPREHENSIVE ANATOMIC SURVEY Routine 11/21/2024 11:17 AM EST Screening, , for anatomic survey UNLISTED LAB TEST Routine 11/21/2024 Choroid plexus cyst of fetus affecting care of mother, antepartum, fetus 1 UNLISTED LAB TEST Routine 11/21/2024 Choroid plexus cyst of fetus affecting care of mother, antepartum, fetus 1 from Last 3 Months Results * US [facility] OB FOLLOW-UP, 1 FETUS (01/27/2025 10:46 AM EDT) Only the most recent of4 resultswithin the time period is included. Anatomical Region Laterality Modality OB-PHARMACY TECHNICIAN PROGRAM DIRECTOR Ultrasound 01/27/2025 10:0 9 AM EDT Narrative 01/27/2025 11:10 AM EDT NAME: MARIAN HUSAIN : 1990 SEX: F Accession Number: [id number] ORDERING PHYSICIAN: TOREY MONTGOMERY REFERRING PHYSICIAN: MARIA HARTLEY Coding ----- --------- Procedures 92913: Follow-up Ultrasound, per fetus [address]: Doppler velocimetry, ; middle cerebral artery Indication [...] Cerebellum tr 36.6 mm 30w 1d 31% Dudley AC 250.6 mm 29w 2d 18% Hadlock Femur 56.7 mm 29w 5d 22% Hadlock Humerus 50.1 mm 29w 2d 27% Osiel HC / AC 1.12 EFW 1,447 g 22% Hadlock EFW (lb) 3 lb EFW (oz) 3 oz EFW by: Hadlock (SFI-MU-SP-FL) Extended Tibia 48.0 mm 29w 0d 16% Osiel Digital Marketing Apprentice 3.6 mm CM 5.9 mm 19% Nicolaides [...] Heart/Thorax: 4-chamber view. RVOT view. LVOT view. 9-ycvmpm-evvmdjr view. Situs. Aortic arch view. Bicaval view. [...] PI 1.99 30% [place] RI 0.84 71% [facility] PS 50.72 cm/s PS 1.24 MoM [...] HUSAIN : 1990 SEX: F Accession Number: [id number] ORDERING PHYSICIAN: TOREY MONTGOMERY REFERRING PHYSICIAN: MARIA HARTLEY Coding ----- --------- Procedures 26318: Follow-up Ultrasound, per fetus 84525: Doppler velocimetry, ; middle cerebral artery Indication [...] EFW (oz) 3 oz EFW by: Hadlock ([id number]-FL) Extended Tibia 48.0 mm 29w 0d 16% Osiel Digital Marketing Apprentice 3.6 mm CM 5.9 mm 19% Nicolaides [...] Heart/Thorax: 4-chamber view. RVOT view. LVOT view. 4-awiyzz-vxflmim view.Situs. Aortic arch view. Bicaval view. Ductal [...] PI 1.99 30% [place] RI 0.84 71% [facility] PS 50.72 cm/s PS 1.24 MoM [...] with thepatient as necessary. Torey Montgomery MD [facility] ORDERABLES Final Resul t * Unlisted Lab Test (11/21/2024) Only the most recent of2 resultswithin the time period is included. 11/21/2024 Torey Montgomery MD LAB BLOOD ORDERABLES Final Re sult [employer] from Last 3 Months Insurance [facility] MEDICAID [employer] Care Teams Material Handling Crew Supervisor Relationship Specialty Start Date End Date No Pcp, [place] [address] PCP - General Family Medicine 02/21/24
--- OUTSIDE RECORDS SUMMARY | 2025-02-16 08:07 | XMS_ITS | Encounter Summary ---
Author Organization [facility] Address [address] [place] [address] Care Team Providers Care Electrical/Instrument Technician Name Role Phone Sarah Lopez DO Unavailable [phone] Encounter Details Date Type Department Care Team (Late st Contact Info) Description 11/21/2024 Abstract [facility] BCP OB [address] [place] [address] Malcolm Pendleton DO [facility] [address], [facility]11 Social History Tobacco Use Types Packs/Day [...] Routine [facility] BCP OB [address] [place] [address] Malcolm Pendleton DO [facility] [place] [address] 11/19/2025 10:50 AM EST Office Visit [facility] [address] [place] [address] Kayleigh Chung APRN-COMMUNITY RESOURCE OFFICER [address] [place] [address] documented as of this encounter Visit Diagnoses Not on filedocumented in this encounter Care Teams Electrical/Instrument Technician Relationship Specialty Start Date End Date Sarah Lopez DO [address] [place] [address] Referring Physician Emergency Medicine 02/18/23 documented as of this encounter
--- OUTSIDE RECORDS SUMMARY | 2025-02-16 08:07 | XMS_ITS | Encounter Summary ---
Author Organization [facility] Address [address] [place] [address] Care Team Providers Care Health And Safety Tech Name Role Phone Sarah Lopez DO Unavailable [phone] Encounter Details Date Type Department Care Team (Late st Contact Info) Description 09/15/2024 Abstract [facility] BCP OB [address] [place] [address] Malcolm Pendleton DO [facility] [address], [facility]11 Social History Tobacco Use Types Packs/Day Years [...] BCP OB [address] [place] [address] Malcolm Pendleton DO [facility] [place] [address] 11/19/2025 10:50 AM EST Office Visit [facility] [address] [place] [address] Kayleigh Chung APRN-SUPERVISOR WOOD ROOM [address] [place] [address] documented as of this encounter Visit Diagnoses Not on filedocumented in this encounter Care Teams Health And Safety Tech Relationship Specialty Start Date End Date Sarah Lopez DO [address] [place] [address] Referring Physician Emergency Medicine 02/18/23 documented as of this encounter
--- OUTSIDE RECORDS SUMMARY | 2025-02-16 08:07 | XMS_ITS | Encounter Summary ---
Author Organization [facility] Address [address] [place] [address] Care Team Providers Care Systems Architecture Analyst Name Role Phone Sarah Lopez DO Unavailable [phone] Encounter Details Date Type Department Care Team (Late st Contact Info) Description 11/21/2024 External Result Encounter [facility] BCP OB [address] [place] [address] Maria Pendleton DO [facility] [address], [place] [address] Social History Tobacco Use Types Packs/Day Years [...] Routine [facility] BCP OB [address] [place] [address] Maria Pendleton DO [facility] [place] [address] 11/19/2025 10:50 AM EST Office Visit [facility] [address] [place] [address] Kayleigh Chung, GEL COATER-QUALITY CONTROL COORDINATOR [address] [place] [address] documented as of this encounter Procedures Procedure Name Priority Date/Time Associated Diagnosis Comments US OB 14+ WEEKS ANATOMY SCAN 11/21/2024 3:40 PM EST documented in this encounter Results * US OB 14+ weeks anatomy scan (11/21/2024 3:40 PM EST) Anatomical Region Laterality Modality Body Ultrasound 11/21/2024 3:40 PM EST Narrative 11/21/2024 3:40 PM EST THIS EXAM WAS PERFORMED AT [facility] NAME: MARIAN HUSAIN : 1990 SEX: F Accession Number: [id number] ORDERING PHYSICIAN: HENNY MONTGOMERY REFERRING PHYSICIAN: MARIA PENDLETON Coding ----- --------- Procedures 85313: Ultrasound, uterus, real time with image documentation, and maternal evaluation plus detailed anatomic examination, transabdominal approach;single or first gestation 83564: Transvaginal Ultrasound (OB) Indication ----- --------- Screening [...] 0 lb 13 oz EFW by Hadlock ([id number]-WB-[id number]-FL) Head / Face / Neck Biometry: Cephalic index 0.73 5% Nicolaides Fire Suppression Captain 4.4 mm CM 4.2 mm 20% Nicolaides [...] Heart / Thorax RVOT view. LVOT view. 1-fyvlto-estoida view. Bicaval view. Extremities / Left hand. [...] Right choroid plexus cyst is identified. Per [facility] guidelines, isolated chorioid plexus cysts (CPCs) are a normal variant of no clinical importance with no indication for follow-up ultrasound imaging or evaluation in the setting of low risk cell free DNA screening. Double right renal artery identified. Recommendations ----- --------- Please see [facility] documentation from today. The patient is scheduled in four to six week(s) to complete anatomic survey. Subsequent follow up or other follow up as clinically determined by primary OB provider unless otherwise specified by [facility]. Results forwarded to ordering provider so they can follow up with the patient as necessary. The copy-to physician of this order is MARIA Brito The ordering physician of this order is HENNY Pineda Procedure Note Radiology, Radiologist, MD - 11/21/2024 THIS EXAM WAS PERFORMED AT [facility] NAME: MARIAN HUSAIN : 1990 SEX: F Accession Number: [id number] ORDERING PHYSICIAN: HENNY MONTGOMERY REFERRING PHYSICIAN: MARIA PENDLETON Coding ----- --------- Procedures 33838: Ultrasound, uterus, real time with imagedocumentation, and maternal evaluation plus detailed anatomic examination, transabdominalapproach;single or first gestation 36313: Transvaginal Ultrasound (OB) Indication ----- --------- Screening [...] Hadlock OFD 63.7 mm 21w 5d 82% Soiel HC 177.6 mm 20w 2d 21% Hadlock Cerebellum tr 22.3 mm 20w 6d 72% Hill Nuchal fold 4.7 mm AC 158.7 mm 21w 0d 53% Hadlock Femur 34.1 mm 20w 5d 41% Hadlock Humerus 31.9 mm 20w 5d 46% Osiel HC / AC 1.12 26% Hadlock Weight Calculation: EFW 376 g 47% Hadlock EFW (lb,oz) 0 lb 13 oz EFW by Hadlock ([id number]) Head / Face / Neck Biometry: Cephalic index 0.73 5% Nicolaides Fire Suppression Captain 4.4 mm CM 4.2 mm 20% Nicolaides [...] Heart / Thorax RVOT view. LVOT view. 6-hmdper-dojvjvb view. Bicavalview. Extremities / Left hand. Skeleton [...] Right choroid plexus cyst is identified. Per [facility] guidelines, isolated chorioid plexus cysts (CPCs) are a normalvariant of no clinical importance with no indication for follow-up ultrasound imaging or evaluation in the setting of lowrisk cell free DNA screening. Double right renal artery identified. Recommendations ----- --------- Please see [facility] documentation from today. The patient is scheduled in four to six week(s) to complete anatomicsurvey. Subsequent follow up or other follow up as clinically determined byprimary OB provider unless otherwise specified by [facility]. Results forwarded to ordering provider so they can follow up with thepatient as necessary. The copy-to physician of this order is MARIA Brito The ordering physician of this order is HENNY Pineda us Maria Pendleton DO IMG OB US PROCEDURES Final Resul t documented in this encounter Visit Diagnoses Not on filedocumented in this encounter Care Teams Systems Architecture Analyst Relationship Specialty Start Date End Date Sarah Lopez DO [address] [place] [address] Referring Physician Emergency Medicine 02/18/23 documented as of this encounter
--- OUTSIDE RECORDS SUMMARY | 2025-02-16 08:07 | XMS_ITS | Encounter Summary ---
Author Organization [facility] Address [address] [place] [place] [address] Care Team Providers Care Food Mixer Assembler Name Role Phone Sarah Lopez DO Unavailable [phone] Encounter Details Date Type Department Care Team (Late st Contact Info) Description 12/16/2024 Abstract [facility] BCP OB [address] [place] [address] Malcolm Pendleton DO [facility] [address], [facility]11 Social History Tobacco Use Types Packs/Day [...] BCP OB [address] [place] [address] Malcolm Pendleton DO [facility] [place] [address] 11/19/2025 10:50 AM EST Office Visit [facility] [address] [place] [address] Kayleigh Chung APRN-TEACHER [employer] [address] [place] [address] documented as of this encounter Visit Diagnoses Not on filedocumented in this encounter Care Teams Food Mixer Assembler Relationship Specialty Start Date End Date Sarah Lopez DO [address] [place] [address] Referring Physician Emergency Medicine 02/18/23 documented as of this encounter
--- OUTSIDE RECORDS SUMMARY | 2025-02-16 08:07 | XMS_ITS | Encounter Summary ---
Author Organization [facility] Address [address] [place] [address] Care Team Providers Care Paperhanger Pipe Name Role Phone Sarah Lopez DO Unavailable Encounter Details Date Type Department Care Team (Late st Contact Info) Description 01/27/2025 Abstract [facility] BCP OB [address] [place] [address] Malcolm Pendleton DO [facility] [address], [facility]11 Social History Tobacco Use Types Packs/Day [...] Routine [facility] BCP OB [address] [place] [address] Malcolm Pendleton DO [facility] [place] [address] 11/19/2025 10:50 AM EST Office Visit [facility] [address] [place] [address] Kayleigh Chung APRN-SENIOR IOS DEVELOPER [address] [place] [address] documented as of this encounter Visit Diagnoses Not on filedocumented in this encounter Care Teams Paperhanger Pipe Relationship Specialty Start Date End Date Sarah Lopez DO [address] [place] [address] Referring Physician Emergency Medicine 02/18/23 documented as of this encounter
--- OUTSIDE RECORDS SUMMARY | 2025-02-16 08:07 | XMS_ITS | Encounter Summary ---
Author Organization [facility] Address [address] [place] [address] Care Team Providers Care Staple Cutter Name Role Phone Sarah Lopez DO Unavailable [phone] Encounter Details Date Type Department Care Team (Late st Contact Info) Description 08/27/2024 Clinisync Result Encounter [facility] External Department Unsolicited Maria Pendleton, DO [address], [facility]11 Social History Tobacco Use Types [...] Routine [facility]OM[facility] BCP [place] [address] [place] [phone] Maria Pendleton, DO [address] [place], [place] [id number] 11/19/2025 10:50 AM EST Office Visit [facility] [address] [place] [address] Sariahvishnu Kayleigh Rowan, ANALYTICS SENIOR MANAGER-STEAMFITTER [address] [place] [address] documented as of this encounter Procedures Procedure Name Priority Date/Time Associated Diagnosis Comments US OB TRANSVAGINAL 08/27/2024 4: 27 AM EST documented in this encounter Results * US OB TRANSVAGINAL (08/27/2024 4:27 AM EST) Anatomical Region Laterality Modality Other 08/27/2024 4:27 AM EST Narrative 08/27/2024 4:30 [place] [address] Ultrasound Report Signed Patient: LISHA VALENTIN MR#: [id number] : 1990 Acct:[id number] Age/Sex: 34 / F ADM Date: 08/26/24 Loc: [facility] Attending Dr: Maria Pendleton D.O. Ordering Physician: Maria Pendleton D.O. Date of Service: 08/26/24 Procedure(s): US OB transvaginal Accession Number(s): [id number] cc: Maria Pendleton D.O.; Physician,Non-Staff M.DJorge The [address] [address] Patient Name: LISHA VALENTIN MRN: [id number] date: 1990 Sex: F Assigned Patient Location: [facility] Current Patient Location: Accession/Order Number: [id number] Exam Date: 08/26/2024 08:59 Report Date: 08/27/2024 [...] M.D. Signed By: 08/27/24429 DD/ 6 TD/TT: Table Lever Operator: Procedure Note Radiology, Radiologist, MD - 08/27/2024 [place] [address] Ultrasound Report Signed Patient: LISHA VALENTIN GMR#: [id number] : 1990Acct:[id number] Age/Sex: 34 / FADM Date: 08/26/24 Loc: [facility] Attending Dr: Maria Pendleton D.O. Ordering Physician: Maria Pendleton D.O. Date of Service: 08/26/24 Procedure(s): US OB transvaginal Accession Number(s): [id number] cc: Maria Pendleton D.O.; Physician,Non-Staff M.DJorge The [place] [address] Patient Name: LISHA VALENTIN MRN: [id number] date: 1990 Sex: F Assigned Patient Location: [facility] Current Patient Location: Accession/Order Number: [id number] Exam Date: 08/26/2024 08:59 Report Date: 08/27/2024 [...] Miguel M.D. Signed By:08/27/24429 DD/ 6 TD/TT: Table Lever Operator: us Maria Helder DO [facility] Final Result documented in this encounter Visit Diagnoses Not on filedocumented in this encounter Care Teams Staple Cutter Relationship Specialty Start Date End Date Sarah Lopez DO [address] [place] [address] Referring Physician Emergency Medicine 02/18/23 documented as of this encounter
--- OUTSIDE RECORDS SUMMARY | 2025-02-16 08:07 | XMS_ITS | Encounter Summary ---
Author Organization [facility] Address [address] [place] [address] Care Team Providers Care Wax Cutter Name Role Phone Sarah Lopez DO Unavailable [phone] Encounter Details Date Type Department Care Team (Late st Contact Info) Description 01/14/2025 Abstract [facility] BCP OB [address] [place] [address] Malcolm Pendleton DO [facility] [address], [facility]11 Social History Tobacco Use Types Packs/Day [...] Routine [facility] BCP OB [address] [place] [address] Malcolm Pendleton DO [facility] [place] [address] 11/19/2025 10:50 AM EST Office Visit [facility] [address] [place] [address] Kayleigh Chung APRN-SALES MANAGER [place] [address] [place] [address] documented as of this encounter Visit Diagnoses Not on filedocumented in this encounter Care Teams Wax Cutter Relationship Specialty Start Date End Date Sarah Lopez DO [address] [place] [address] Referring Physician Emergency Medicine 02/18/23 documented as of this encounter
--- OUTSIDE RECORDS SUMMARY | 2025-02-16 08:07 | XMS_ITS | Encounter Summary ---
Author Organization [facility] Address [address] [place] [address] Care Team Providers Care Business Database Analyst Name Role Phone Sarah Lopez DO Unavailable [phone] Encounter Details Date Type Department Care Team (Late st Contact Info) Description 02/04/2025 Telephone [facility] OB [address] [address] Suze Lopez LPN [address] [place] [id number] Social History Tobacco Use Types Packs/Day Years [...] this is Terri from Maternal Medicine at [facility]. My number is [phone]. We have a mutual patient named Leandra [...] she is not going to come to [place] for 30 minappointment and so that someone had to get her kids. So I wanted to document this. So you know thatshe has canceled and refused to make another appointment are declined again. My phone number is [phone], thank you. FYI for you documented in this encounter Plan of Treatment Upcoming Encounters Date Type Department Care Team (Late st Contact Info) Description 02/24/2025 11:40 AM EDT Routine [facility]CP OB [address] [facility] [place] [address] Malcolm Pendleton, DO [address] [facility] [place] [address] 11/19/2025 10:50 AM EST Office Visit [facility] [address] [facility] [address] [place] [address] Kayleigh Chung, PARCEL WRAPPER-LEAD SOFTWARE TEST ENGINEER [address] [place] [address] documented as of this encounter Visit Diagnoses Not on filedocumented in this encounter Care Teams Business Database Analyst Relationship Specialty Start Date End Date Sarah Lopez DO [address] [place] [address] Referring Physician Emergency Medicine 02/18/23 documented as of this encounter
--- OUTSIDE RECORDS SUMMARY | 2025-02-16 08:07 | XMS_ITS | Encounter Summary ---
Author Organization [facility] Address [address] [place] [address] Care Team Providers Care Food Service Supervisor Name Role Phone Sarah Lopez DO Unavailable [phone] Encounter Details Date Type Department Care Team (Late st Contact Info) Description 08/26/2024 Abstract [facility]CP [address] [place] [address] Malcolm Pendleton DO [facility] [address] [place], [facility]11 Social History Tobacco Use Types [...] Routine [facility] [place]CP [address] [place] [address] Malcolm Pendleton DO [facility] [place] [address] 11/19/2025 10:50 AM EST Office Visit [facility] [address] [place] [address] Kayleigh Chung APRN-BLAST FURNACE TENDER [address] [place] [address] documented as of this encounter Visit Diagnoses Not on filedocumented in this encounter Care Teams Food Service Supervisor Relationship Specialty Start Date End Date Sarah Lopez DO [address] [place] [address] Referring Physician Emergency Medicine 02/18/23 documented as of this encounter
--- OUTSIDE RECORDS SUMMARY | 2025-02-16 08:07 | XMS_ITS | Encounter Summary ---
Author Organization [facility] Address [address] [place] [address] Care Team Providers Care Stone Polisher Hand Name Role Phone Sarah Lopez DO Unavailable [phone] Encounter Details Date Type Department Care Team (Late st Contact Info) Description 12/29/2024 Abstract [facility] BCP [address] [place] [address] Malcolm Pendleton DO [facility] [address] [place], [facility]11 Social History Tobacco Use Types Packs/Day Years [...] Routine [facility] BCP [address] [place] [address] Malcolm Pendleton DO [facility] [place] [address] 11/19/2025 10:50 AM EST Office Visit [facility] [address] [place] [address] Kayleigh Chung APRN-CONTRACT SHELTERED WORKSHOP SUPERVISOR [address] [place] [address] documented as of this encounter Visit Diagnoses Not on filedocumented in this encounter Care Teams Stone Polisher Hand Relationship Specialty Start Date End Date Sarah Lopez DO [address] [place] [address] Referring Physician Emergency Medicine 02/18/23 documented as of this encounter
--- OUTSIDE RECORDS SUMMARY | 2025-02-16 08:07 | XMS_ITS | Encounter Summary ---
Author Organization [facility] Address [address] [place] [place] [address] Care Team Providers Care Scrap Preparation Supervisor Name Role Phone Sarah Lopez DO Unavailable [phone] Encounter Details Date Type Department Care Team (Late st Contact Info) Description 02/19/2024 Clinisync Result Encounter [facility] External Department Unsolicited Maria Pendleton, DO [address] [place] [address] Social History Tobacco Use Types Packs/Day Years [...] Routine [facility] BCP [address] [place] [address] Maria Pendleton, DO [address] [place] [address] 11/19/2025 10:50 AM EST Office Visit [facility] [address] [place] [address] Kayleigh Chung, FOLDER TIER-TAX ASSOCIATE [address] [place] [address] documented as of this encounter Procedures Procedure Name Priority Date/Time Associated Diagnosis Comments US PELVIS TRANSVAGINAL 02/19/2024 12:27 PM EDT documented in this encounter Results * US PELVIS TRANSVAGINAL (02/19/2024 12:27 PM EDT) Anatomical Region Laterality Modality Other 02/19/2024 12:2 7 PM EDT Narrative 02/19/2024 12:29 PM EDT [address] [address] Ultrasound Report Signed Patient: LISHA VALENTIN MR#: [id number] : 1990 Acct:[id number] Age/Sex: 33 / F ADM Date: 02/19/24 Loc: [facility] Attending Dr: Maria Pendleton D.O. Ordering Physician: Maria Pendleton D.O. Date of Service: 02/19/24 Procedure(s): US pelvis transvaginal Accession Number(s): [id number] cc: Maria Pendleton D.O.; Physician,Non-Staff M.D. The [address] [address] Patient Name: LISHA VALENTIN MRN: [id number] date: 1990 Sex: F Assigned Patient Location: [facility] Current Patient Location: [facility] Accession/Order Number: [id number] Exam Date: 02/19/2024 11:18 Report Date: 02/19/2024 [...] Signed By: 02/19/24 1229 DD/ 1227 TD/TT: Seismic Plotter: Procedure Note Radiology, Radiologist, MD - 02/19/2024 [place] [address] Ultrasound Report Signed Patient: LISHA VALENTIN GMR#: [id number] : 1990Acct:[id number] Age/Sex: Date: 02/19/24 Loc: [facility] Attending Dr: Maria Pendleton D.O. Ordering Physician: Maria Pendleton D.O. Date of Service: 02/19/24 Procedure(s): US pelvis transvaginal Accession Number(s): [id number] cc: Maria Pendleton D.O.; Physician,Non-Staff MKarlee [address] [address] Patient Name: LISHA VALENTIN MRN: [id number] date: 1990 Sex: F Assigned Patient Location: [facility] Current Patient Location: [facility] Accession/Order Number: [id number] Exam Date: 02/19/2024 11:18 Report Date: 02/19/2024 [...] M.D. Signed By:02/19/24 1229 DD/ 1227 TD/TT: Seismic Plotter: us Maria Pendleton DO [facility] Final Result documented in this encounter Visit Diagnoses Not on filedocumented in this encounter Care Teams Scrap Preparation Supervisor Relationship Specialty Start Date End Date Sarah Lopez DO [address] [place] [address] Referring Physician Emergency Medicine 02/18/23 documented as of this encounter
--- OUTSIDE RECORDS SUMMARY | 2025-02-16 08:07 | XMS_ITS | Encounter Summary ---
Author Organization [facility] Address [address] [place] [address] Care Team Providers Care Chief Psychologist Name Role Phone Sarah Lopez DO Unavailable [phone] Encounter Details Date Type Department Care Team (Late st Contact Info) Description 11/24/2024 Abstract [facility] BCP OB [address] [place] [address] Malcolm Pendleton DO [facility] [address] [place], [facility]11 Social History Tobacco Use Types Packs/Day [...] Routine [facility] BCP [address] [place] [address] Malcolm Pendleton DO [facility] [place] [address] 11/19/2025 10:50 AM EST Office Visit [facility] [address] [place] [address] Kayleigh Chung APRN-DECK MOLDER [address] [place] [address] documented as of this encounter Visit Diagnoses Not on filedocumented in this encounter Care Teams Chief Psychologist Relationship Specialty Start Date End Date Sarah Lopez DO [address] [place] [address] Referring Physician Emergency Medicine 02/18/23 documented as of this encounter
--- OUTSIDE RECORDS SUMMARY | 2025-02-16 08:07 | XMS_ITS | Encounter Summary ---
Author Organization [facility] Address [address] [place] [address] Care Team Providers Care Tax Senior Associate Name Role Phone Sarah Lopez DO Unavailable [phone] Encounter Details Date Type Department Care Team (Late st Contact Info) Description 12/17/2024 Abstract [facility] BCP OB [address] [place] [address] Malcolm Pendleton DO [facility] [address] [place], [facility]11 Social History Tobacco Use Types Packs/Day [...] Routine [facility] BCP OB [address] [place] [address] Malcolm Pendleton DO [facility] [place] [address] 11/19/2025 10:50 AM EST Office Visit [facility] [address] [place] [address] Kayleigh Chung APRN-CERTIFIED COURT INTERPRETER [address] [place] [address] documented as of this encounter Visit Diagnoses Not on filedocumented in this encounter Care Teams Tax Senior Associate Relationship Specialty Start Date End Date Sarah Lopez DO [address] [place] [address] Referring Physician Emergency Medicine 02/18/23 documented as of this encounter
--- OUTSIDE RECORDS SUMMARY | 2025-02-16 08:07 | XMS_ITS | Encounter Summary ---
Author Organization [facility] Address [address] [place] [address] Care Team Providers Care Music Publisher Name Role Phone Sarah Lopez DO Unavailable [phone] Encounter Details Date Type Department Care Team (Late st Contact Info) Description 01/09/2025 Results Follow-Up [facility] B[facility] OB [address] [place] [address] Suze Lopez LPN [address] [place] [id number] Social History Tobacco Use Types Packs/Day Years [...] AM EDT Routine [facility] BCP OB [address] [place] [address] Malcolm Pendleton, DO [address] [place] [address] 11/19/2025 10:50 AM EST Office Visit [facility] [address] [place] [address] Kayleigh Chung, CODING COMPLIANCE AUDITOR-ENCAPSULATOR [address] [place] [address] documented as of this encounter Visit Diagnoses Not on filedocumented in this encounter Care Teams Music Publisher Relationship Specialty Start Date End Date Sarah Lopez DO [address] [place] [address] Referring Physician Emergency Medicine 02/18/23 documented as of this encounter
--- OUTSIDE RECORDS SUMMARY | 2025-02-16 08:07 | XMS_ITS | Encounter Summary ---
Author Organization [facility] Address [address] [place] [address] Care Team Providers Care Picking Crew Supervisor Name Role Phone Sarah Lopez DO Unavailable [phone] Encounter Details Date Type Department Care Team (Late st Contact Info) Description 01/30/2025 Abstract [facility] [address] [place] [address] Mary Cruz MA Social History Tobacco [...] Routine [facility] BCP OB [address] [place] [address] Malcolm Pendleton DO [address] [place], [place] [address] 11/19/2025 10:50 AM EST Office Visit [facility] [address] [place] [address] Kayleigh Chung APRN-FOOD AND DRUG RESEARCH SCIENTIST [address] [place] [address] documented as of this encounter Visit Diagnoses Not on filedocumented in this encounter Care Teams Picking Crew Supervisor Relationship Specialty Start Date End Date Sarah Lopez DO [address] [place] [address] Referring Physician Emergency Medicine 02/18/23 documented as of this encounter
--- OUTSIDE RECORDS SUMMARY | 2025-02-16 08:07 | XMS_ITS | Encounter Summary ---
Author Organization [facility] Address [address] [place] [address] Care Team Providers Care Guest Relations Manager Name Role Phone Sarah Lopez DO Unavailable [phone] Encounter Details Date Type Department Care Team (Late st Contact Info) Description 01/06/2025 Results Follow-Up [facility] BCP OB [address] [place] [address] Suze Lopez LPN [address] [place] [id number] Social History Tobacco Use Types Packs/Day Years [...] OB [address] [place] [address] Malcolm Pendleton DO [address] [facility] [address] [place] [address] 11/19/2025 10:50 AM EST Office Visit [facility] [address] [place] [address] Kayleigh Chung, CLINICAL PHARMACIST-OFFSET PRESS ASSISTANT [address] [place] [address] documented as of this encounter Visit Diagnoses Not on filedocumented in this encounter Care Teams Guest Relations Manager Relationship Specialty Start Date End Date Sarah Lopez DO [address] [place] [address] Referring Physician Emergency Medicine 02/18/23 documented as of this encounter
--- OUTSIDE RECORDS SUMMARY | 2025-02-16 08:07 | XMS_ITS | Encounter Summary ---
Author Organization [facility] Address [address] [place] [address] Care Team Providers Care Railroad Track Inspector Name Role Phone Sarah Lopez DO Unavailable [phone] Encounter Details Date Type Department Care Team (Late st Contact Info) Description 01/20/2025 Abstract [facility] BCP OB [address] [place] [address] Malcolm Pendleton DO [facility] [address], [facility]11 Social History Tobacco Use Types Packs/Day Years [...] [place] [address] Malcolm Pendleton DO [facility] [place] [address] 11/19/2025 10:50 AM EST Office Visit [facility] [address] [place] [address] Kayleigh Chung APRN-MARKETING SUPPORT SPECIALIST [address] [place] [address] documented as of this encounter Visit Diagnoses Not on filedocumented in this encounter Care Teams Railroad Track Inspector Relationship Specialty Start Date End Date Sarah Lopez DO [address] [place] [address] Referring Physician Emergency Medicine 02/18/23 documented as of this encounter
--- OUTSIDE RECORDS SUMMARY | 2025-02-16 08:07 | XMS_ITS | Encounter Summary ---
Author Organization [facility] Address [address] [place] [address] Care Team Providers Care Port Purser Name Role Phone Sarah Lopez DO Unavailable [phone] Encounter Details Date Type Department Care Team (Late st Contact Info) Description 01/08/2025 Results Follow-Up [facility] BCP OB [address] [place] [place] [address] Suze Lopez LPN [address] [place] [id number] Social History Tobacco Use Types Packs/Day Years [...] OB [address] [place] [address] Malcolm Pendleton DO [address] [facility] [place] [address] 11/19/2025 10:50 AM EST Office Visit [facility] [address] [place] [address] Kayleigh Chung, AIRCRAFT LIFE SUPPORT FITTER-BOOK TRIMMER [address] [facility] [address] [place] [address] documented as of this encounter Visit Diagnoses Not on filedocumented in this encounter Care Teams Port Purser Relationship Specialty Start Date End Date Sarah Lopez DO [address] [place] [address] Referring Physician Emergency Medicine 02/18/23 documented as of this encounter
--- OUTSIDE RECORDS SUMMARY | 2025-02-16 08:07 | XMS_ITS | Encounter Summary ---
Author Organization [facility] Address [address] [place] [address] Care Team Providers Care Strategic Marketing Manager Name Role Phone Sarah Lopez DO Unavailable [phone] Encounter Details Date Type Department Care Team (Late st Contact Info) Description 02/12/2025 Clinisync Result Encounter [facility] External Department Unsolicited Maria Pendleton, DO [address], [facility]11 Social History Tobacco Use Types Packs/Day [...] [facility] BCP OB [address] [place] [address] Maria Pendleton, DO [address] [place], [place] [address] 11/19/2025 10:50 AM EST Office Visit [facility] [address] [place] [address] Kayleigh Chung, SENIOR WAREHOUSE CLERK-POLICEMAN [address] [place] [address] documented as of this encounter Procedures Procedure Name Priority Date/Time Associated Diagnosis Comments US OB BPP W NON-STRESS 02/12/2025 9:06 AM EDT documented in this encounter Results * US OB BPP W NON-STRESS (02/12/2025 9:06 AM EDT) Anatomical Region Laterality Modality Other 02/12/2025 9:06 AM EDT Narrative 02/12/2025 9:08 [place] [address] Ultrasound Report Signed Patient: LISHA VALENTIN MR#: [id number] : 1990 Acct:[id number] Age/Sex: 34 / F ADM Date: 02/12/25 Loc: [place] [address]: Maria Pendleton D.O. Ordering Physician: Maria Pendleton D.O. Date of Service: 02/12/25 Procedure(s): US OB BPP w non-stress Accession Number(s): [id number] cc: Maria Pendleton D.O.; Physician,Non-Staff M.DJorge The [place] [id number] Patient Name: LISHA VALENTIN MRN: [id number] date: 1990 Sex: F Assigned Patient Location: [facility] Current Patient Location: [facility] Accession/Order Number: [id number] Exam Date: 02/12/2025 09:04 Report Date: 02/12/2025 09:06 At the request of: MARIA PENDLETON DO Procedure: US OB BPP w non-stress BIOPHYSICAL PROFILE: CLINICAL INFORMATION: HISTORY OF LABOR COMPARISON: None There is a single live intrauterine gestation in cephalic presentation. The reported gestational age is 32 weeks 4 days. The heart rate [id number] beats per minute. FINDINGS: TONE: 1 or [...] This is in normal range. Total score: 8 US/US OB BPP w non-stress IMPRESSION: NORMAL BIOPHYSICAL PROFILE. Impression dictated by: Michell Miller M.D. 02/12/2025 9:06 AM Dictation Location: [place] [address] Electronically authenticated by: [id number] Date: 02/12/2025 09:06 Dictated By: Michell Miller M.D. Signed By: 02/12/25907 DD/ 5 TD/TT: Colon Therapist: Procedure Note Radiology, Radiologist, - 02/12/2025 [place] [address] Ultrasound Report Signed Patient: LISHA VALENTIN GMR#: [id number] : 1990Acct:[id number] Age/Sex: 34 / FADM Date: 02/12/25 Loc: [facility] 250-[address]: Maria Pendleton D.O. Ordering Physician: Maria Pendleton D.O. Date of Service: 02/12/25 Procedure(s): US OB BPP w non-stress Accession Number(s): [id number] cc: Maria Pendleton D.O.; Physician,Non-Staff Kacey The [place] [id number] Patient Name: LISHA VALENTIN MRN: [facility]:[id number] date: 1990 Sex: F Assigned Patient Location: [facility] Current Patient Location: [facility] Accession/Order Number: [id number] Exam Date: 02/12/2025 09:04 Report Date: 02/12/2025 09:06 At the request of: MARIA PENDLETON DO Procedure: US OB BPP w non-stress BIOPHYSICAL PROFILE: CLINICAL INFORMATION: HISTORY OF LABOR COMPARISON: None There is a single live intrauterine gestation in cephalic presentation.The reported gestational age is 32 weeks 4 days. The heart [id number] beats per minute. FINDINGS: TONE: 1 or [...] Miller M.D. 02/12/2025 9:06 AM Dictation Location: [place] [address] Electronically authenticated by: [id number] Y Date: 509:06 Dictated By: Michell Miller M.D. Signed By:02/12/25907 DD/ 5 TD/TT: Colon Therapist: Maria Pendleton DO [facility] Final Result documented in this encounter Visit Diagnoses Not on filedocumented in this encounter Care Teams Strategic Marketing Manager Relationship Specialty Start Date End Date Sarah Lopez DO [address] [place] [address] Referring Physician Emergency Medicine 02/18/23 documented as of this encounter
[2025-02-16 08:10] VITALS: TEMP 36.3
[2025-02-16 08:11] VITALS: BP 120/64; PULSE 85
== END 2025-02-16 08:41 | disposition home or self-care (01) ==
LOC: FBCO 08:03 → FBC 08:05
PROVIDERS: Visit Provider Obstetrics & Gynecology
DX: O10.913 Unspecified pre-existing hypertension complicating pregnancy, third trimester (principal)
CPT/HCPCS: 59025

== ENCOUNTER 2025-02-19 10:51 | Outpatient (OUT) | payer OTHER, MEDICAID, SELFPAY ==
--- NOTE | 2025-02-19 | US_ITS ---
The [address] [address] Patient Name: LISHA FONSECA MRN: [id number] date: 1990 Sex: F Assigned Patient Location: [facility] Current Patient Location: [facility] Accession/Order Number: [id number] Exam Date: 02/19/2025 11:27 Report Date: 02/19/2025 11:29 At the request of: MARIA HARTLEY DO Procedure: US OB BPP w non-stress BIOPHYSICAL PROFILE: CLINICAL INFORMATION: History of pre eclampsia O09.299 COMPARISON: 02/12/2025 There is a single live intrauterine gestation in cephalic presentation. The reported gestational age is 33 weeks 4 days. No heart rate was measured on today's exam. FINDINGS: TONE: 1 or more episodes of activity extension and flexion of extremity or opening and closing of the hand [Y] 2/2 GROSS BODY MOVEMENTS: 3 or more discrete body or limb movements [Y] 2/2 BREATHING MOVEMENTS: 1 or more episodes of breathing lasting at least 30 seconds [Y] 2/2 VIDA: A single deepest vertical pocket of amniotic fluid greater than 2 cm [Y] 2/2 VIDA: 16.8 cm.) This is in upper normal range. Total score: 8/8 US/US OB BPP w non-stress IMPRESSION: NORMAL BIOPHYSICAL PROFILE Impression dictated by: Michell Miller M.D. 02/19/2025 11:29 AM Dictation Location: [place] [address] Electronically authenticated by: [id number] Y Date: 02/19/2025 11:29
[2025-02-19 11:08] VITALS: BP 119/69; PULSE 81
== END 2025-02-19 11:42 | disposition home or self-care (01) ==
LOC: US 10:52 → FBC 10:54
PROVIDERS: Visit Provider Obstetrics & Gynecology
DX: O09.293 Supervision of pregnancy with other poor reproductive or obstetric history, third trimester (principal); Z3A.33 33 weeks gestation of pregnancy
CPT/HCPCS: 76818

== ENCOUNTER 2025-02-20 05:37 | Emergency (ER) | payer OTHER, MEDICAID, SELFPAY ==
[2025-02-20 05:46] VITALS: BP 131/76; PULSE 78; TEMP 36.6; O2SAT 100; BMI 36.0
--- NOTE | 2025-02-20 06:06 | ED_ITS ---
HPI - Dental/Oral General Chief complaint: Dental/Oral Stated complaint: MOUTH PAIN Time Seen by Provider: 02/20/25 05:59 Source: patient Mode of arrival: walk-in Limitations: no limitations History of Present Illness HPI Narrative: dental pain. ongoing for past week. Seen by her dentist 3 days ago but no intervention until after she delivers her baby. She is 33 weeks . No problem with the baby. Past history of pre eclampsia. does have edema bilat feet R>L. No abdominal pain and normal BP no fever. She feels her face is swollen. She is not getting any relief with tylenol. Not able to sleep tonight and came to the ER Teeth map: 2 1. pain and tenderness. sl. swelling Related Data Previous Rx's ?Medication ?Instructions ?Recorded valacyclovir 1 gram tablet 1,000 mg PO BID 10 days #20 tabs 12/29/24 (Valtrex) Allergies Allergy/AdvReac Type Severity Reaction Status Date / Time labetalol Allergy Severe Hives Verified 02/20/25 05:53 methimazole Allergy Severe tongue Verified 02/20/25 05:53 swelling Review of Systems 2 ROS0 Status of ROS 10 or more systems reviewed and unremark able except as noted in history and below [facility] Medical History (Updated 02/20/25 @ 06:07 by Raymundo Mata MD) Endometrial tumor ?D49.59 - Neoplasm of unspecified behavior of other genitourinary organ (ICD- 10) Endometriosis ?N80.9 - Endometriosis, unspecified (ICD-10) Hyperthyroidism ?E05.90 - Thyrotoxicosis, unspecified without thyrotoxic crisis or storm (ICD-10) Depression ?F32.A - Depression, unspecified (ICD-10) Anxiety ?F41.9 - Anxiety disorder, unspecified (ICD-10) Constipation ?K59.00 - Constipation, unspecified (ICD-10) Anemia ?D64.9 - Anemia, unspecified (ICD-10) Surgical History (Updated 02/19/24 @ 12:30 by Kayleigh Orourke RN) H/O section ?Z98.891 - History of uterine scar from previous surgery (ICD-10) Family History (Updated 02/19/24 @ 12:13 by Kayleigh Orourke RN) Other Family history of COPD (chronic obstructive pulmonary disease) Family history of diabetes mellitus Family history of hypertension Family history of myocardial infarction Family history of stroke Hyperthyroidism Social History (Updated 02/19/24 @ 12:12 by Kayleigh Orourke RN) Within the past year, how often did you have a drink containing alcohol: 2-4 times a month Smoking status: Never smoker Second hand tobacco smoke exposure: No Non-prescribed substance use: cannabis (any form) Non-prescribed substance use details: on rare occasion Previous occupational history: [employer] Highest level of school completed/degree received: high school graduate Little interest or pleasure in doing things: not at all Feeling down, depressed, or hopeless: not at all Exam Constitutional Vital Signs, click to edit/add: Last Vital Signs Temp 97.8 F 02/20/25 05:46 Pulse 78 02/20/25 05:46 Resp 18 02/20/25 05:46 BP 131/76 02/20/25 05:46 Pulse Ox 100 02/20/25 05:46 O2 Del Method Room Air 02/20/25 05:46 Common normals: average body habitus, oriented x3, no limitations, healthy appearing, alert and well nourished General appearance: in distress HENMT Common normals: normocephalic and head/scalp atraumatic Eye Common normals: PERRL and EOMs intact bilaterally Respiratory Common normals: normal respiratory effort, no retractions, no use of accessory muscles and clear to auscultation bilaterally Cardio Common normals: regular rate, regular rhythm, S1 normal heart sound and S2 normal heart sound GI Other: gravid Extremity Common normals: normal to inspection and full ROM Neuro Common normals: oriented x3, CN's II-XII intact bilaterally, moves all extremities and no focal motor deficits Psych Appearance: grossly normal Course Vital Signs Vital signs: Vital Signs Temperature 97.8 F 02/20/25 05:46 Pulse Rate 78 02/20/25 05:46 Respiratory Rate 18 02/20/25 05:46 Blood Pressure 131/76 02/20/25 05:46 Pulse Oximetry 100 02/20/25 05:46 Oxygen Delivery Method Room Air 02/20/25 05:46 Temperature 97.8 F 02/20/25 05:46 Pulse Rate 78 02/20/25 05:46 Respiratory Rate 18 02/20/25 05:46 Blood Pressure 131/76 02/20/25 05:46 Pulse Oximetry 100 02/20/25 05:46 Oxygen Delivery Method Room Air 02/20/25 05:46 MDM - Dental/Oral MDM Narrative Medical decision making narrative: presents with worsening dental pain and mild swelling suspicious for dental abscess. Given dose of Amoxicillin and Coupland. Patient is and understand risk related to opiate and but wanting some relief of pain as she is not getting any at this time with Tylenol. Discharged with a prescription of Coupland and Amoxicillin and advised to follow up with her dentist Discharge Plan Discharge Chief Complaint: Dental/Oral Clinical Impression: Dentalgia Patient Disposition: Home, Self-Care Prescriptions / Home Meds: No Action valacyclovir [Valtrex] 1 gram tablet 1,000 mg PO BID 10 Days Qty: 20 0RF Print Language: Tunisian Instructions: Toothache (ED) Additional Instructions: follow up with your dentist next week Referrals: Physician,Non-Staff, MD [Primary Care Provider] - 1 week
--- OUTSIDE RECORDS SUMMARY | 2025-02-20 06:08 | XMS_ITS | CCD ---
Author Organization [facility] Inform ion Partnership [facility] Care Team Providers Care Medical Or Surgical Instrument Maker Name Role Phone Unknown, Unknown Unavailable Unavailable Yudelka Lopez Unavailable Unavailable Unavailable BETTY Lopez Primary Care Provider [phone] DO Chris Greenwood Emergency Provider DO Jim Vega Emergency Provider MD Sly Crocker Attending Provider [phone] DO Frank Silva Emergency Provider BETTY Lopez Attending Provider MD Marvin Serrano Jr Emergency Provider BETTY Lopez Primary Care Provider DO Frank Silva Emergency Provider [phone] BETTY Lopez Primary Care Provider DO Frank Silva Emergency Provider NADYA Peraza Attending Provider [phone] DO Jim Vega Emergency Provider BETTY Lopez Primary Care Provider BETTY Lopez Attending Provider BETTY Lopez Referring Provider BETTY Hough Attending Provider MD Dayne Horton Attending Provider BETTY Lopez Primary Care Provider NADYA Peraza Attending Provider DO Jim Vega Emergency Provider [phone] BETTY Lopez Attending Provider MD Dayne Horton Attending Provider John, BETTY Paulino Referring Provider BETTY Hough Attending Provider BERTIN Vega Emergency Provider [phone] DR REBECCA GALVEZ Attending Unavailable FORREST, DR [...] Primary Care Unavailable Dimitris, Jose Unavailable John CONCRETE BLOCK LAYER Yudelka Lora Primary Care Provider MD Jose Shanks Attending Provider [phone] MD Dayne Horton Referring Provider John CONCRETE BLOCK LAYER Yudelka Lora Primary Care Provider John CONCRETE BLOCK LAYER Yudelka Lora Attending Provider John CONCRETE BLOCK LAYER Yudelka Lora Referring Provider BETTY Hough Attending Provider John CONCRETE BLOCK LAYER Yudelka Lora Primary Care Provider DO Jim Vega Emergency Provider John CONCRETE BLOCK LAYER Yudelka Lora Referring Provider BETTY Hough Attending Provider John CONCRETE BLOCK LAYER Yudelka Lora Referring Provider BETTY Hough Attending Provider Alfie Matthews Primary Care Physician John CONCRETE BLOCK LAYER Yudelka Lora Primary Care Provider [phone] MD Dayne Horton Attending Provider John CONCRETE BLOCK LAYER Yudelka Lora Referring Provider BETTY Hough Attending Provider Marvin Fontenot Unavailable John CONCRETE BLOCK LAYER Yudelka Lora Referring Provider BETTY Hough Attending Provider John CONCRETE BLOCK LAYER Yudelka Lora Primary Care Provider [phone] John CONCRETE BLOCK LAYER Yudelka Lora Referring Provider BETTY Hough Attending Provider John CONCRETE BLOCK LAYER Yudelka Paulino Attending Provider LopezWALDON Yudelka Paulino Primary Care Provider LopezWALDON Yudelka Paulino Referring Provider BETTY Hough Attending Provider Lex Elizabeth Attending Unavailable Kelly Hough Referring Unavailable Kelly Hough Referring Unavailable Lex Elizabeth Attending Unavailable Manas Simental Attending Unavaila ble John CONCRETE BLOCK LAYER Yudelka Paulino Primary Care Provider DO Alejandrina Doddra Sergey Emergency Provider John HAASN Yudelka Paulino Primary Care Provider Yousif GOLDBERG Sarah Sergey Emergency Provider [phone] Marvin Serrano MD Emergency Provider Julián Naqvi MD Admit Provider Julián Naqvi MD Attending Provider [phone] John GOLDBERG, Sarah Unavailable [phone] Malcolm Pendleton DO Attending Provider John HAASNYudelka Referring Provider Kelly Hough APRN Attending Provider Alfie Matthews MD Primary Care Provider No Pcp, No Pcp Primary Care Provider [...] PCP, NO PCP Primary Care Unavailable John HERNÁNDEZ, Yudelka Lora Referring Provider Kelly Hough APRN Attending Provider Alfie Matthews MD Primary Care Provider Priscilla Warren PA-C Attending Provider NO FAMILY, PHYSICIAN Primary Care Provider Unava ilable Alfie Matthews Primary Care Unavailable Kelly Hough Admitting Unavail able Kelly Hough Attending Unavail able Lopez, Yudelka Lora Referring Unavailable Helder, Malcolm Attending Unavailable Helder, Malcolm Admitting Unavailable NO FAMILY, PHYSICIAN Primary Care Unavailable Priscilla Warren Admitting Unavailable Priscilla Warren Attending Unavailable Driss, Julián Admitting Unavailab le Driss, Julián Attending Unavailab le Lopez, Yudelka Lora Primary Care Unavailable Driss, Julián Admitting Unavailab le Driss, Julián Attending Unavailab Tam Carrera Unavailable Lopez, Yudelka Lora Primary Care Unavailable SilviaJim adams Admitting Unavailable SilviaJim adams Attending Unavailable Lopez, Yudelka Lora Primary Care Unavailable Lopez, Yudelka Lora Primary Care Unavailable Sarah Dodd Admitting Unavailable Sarah Dodd Attending Unavailable PRISCILLA WARREN Attending Unavailable HELDER, MALCOLM Attending Unavailable NARESH CHUNG Attending Unavailable PRISCILLA WARREN Attending Unavailable HELDER, MALCOLM Attending Unavailable REYNOLD LESLIE Attending Unavailable HELDER, MALCOLM Attending Unavailable HELDER, MALCOLM Attending Unavailable HELDER, MALCOLM Attending Unavailable KELVIN, PRISCILLA Attending Unavailable Allergies Allergy Classification Reported Allergen(s) Allergy Type Date of Onset Reaction(s) Facility (6 sources) Albuterol; Translations: [albuterol] Drug Allergy HT-Irzsdoubt-[facility] [place] [place] Work Phone: (20 sources) Labetalol; Translations: [Labetalol] Drug Allergy 2 Shortness of breath, Unknown, Other [facility] (10 sources) THYROID MEDICATION Allergy to substance 3 Rash [facility] (8 sources) methIMAzole; Translations: [METHIMAZOLE] Drug Allergy 4 anaphylaxis [facility] Repository (13 sources) methIMAzole Drug Allergy 5 anaphylaxis [employer] Other (18 sources) cefdinir; Translations: [CEFDINIR] Drug Allergy 4 Unknown, Unknown Reaction [facility] (20 sources) Labetalol; Translations: [LABETALOL HCL] Drug Allergy 3 Hives [facility] (20 sources) methIMAzole Drug Allergy 3 [facility] (20 sources) cefdinir Drug Allergy 4 [facility] (1 source) cefdinir Drug Allergy 5 [facility] Repository (1 source) methIMAzole Drug Allergy 5 [facility] Repository Medications Current Medications Medication Drug Class(es) Dates Sig (Normalized) Sig (Original) acetaminophen 325 mg / HYDROcodone bitartrate 5 mg oral tablet (3 sources) Opioid Agonist Start: 12-30-2024 End: 01-04-2025 take 1 tablet by mouth every six hours for pain HYDROcodone-acetam inophen ([place]) 5-325 MG tablet Indications: HSV (herpes simplex [...] Daily, # 30 tab(s), Refills(s) 0, Pharmacy: [address], [address], cm, 11/19/20 19:36:00 EST, Height/Length [...] D2 Compound Vitamin D (Ergocalciferol) 1.25 MG (70906 UT) Oral for 28 Days Active fluticasone 0.05 mg/inh Nasal [place] (2 sources) Start: 021 take 2 spray(s) nasal route once daily fluticasone 0.05 mg/inh Nasal [place] 2 spray(s), Nasal, Daily, 16 gram, Refill(s) [...] 2 (two) times a day. Active levonorgestrel 0.066321 mg/hr intrauterine system (3 sources) Progestin, Progestin-containing [...] Daily 30 tablet 6 11/04/2024 12/04/2024 Active Dequincy (No Known Home Meds) (2 sources) Start: Dequincy (No Known Home Meds) Active November 24, 2023 1:00am Start: 06-27-2023 Dequincy (No Kn own Home Meds) Active June [...] 3 times a day for 5 days 18 May, 2023 Active 25/iron fum/folic/dha (-1 ORAL) (10 sources) take 1 tablet by mouth once daily 25/iron fum/folic/dha (-1 ORAL) Take 1 tablet by mouth daily. Active Multivitamins with Folic Acid 1 mg and Docusate oral kit (2 sources) Start: 05-28-20 Multivitamins with Folic Acid 1 mg and Docusate oral kit Oral, Daily, Refill(s) 0, Prophylaxis Start Date: 05/28/19 Status: Ordered Vit No.594-Knby-Kabhe ( Vitamin) 27 mg iron- 800 mcg Tablet (2 sources) Start: 08-08-20 take 1 tablet by mouth once daily Vit No.003-Mgls-Uorzm ( Vitamin) 27 mg iron- 800 mcg Tablet Active 1 TAB PO Daily August 08, 2024 1:00am Start: 08-08-2024 take 1 tablet by shantel th once daily Vit No.277-Dnyv-Mbqyq ( Vitamin) 27 mg iron- 800 mcg Tablet Active 1 TAB PO Daily August 08, 2024 12:00am terconazole 4 mg/ml vaginal cream (3 sources) Azole Antifungal Start: 12-23-2024 End: 12-30-2024 terconazole (Terazol 7) 0.4 % vaginal cream Indications: Yeast infection Insert 1 applicator into the vagina at bedtime for 7 days 45 g 12/23/2024 12/30/2024 Active triamcinolone acetonide 1 mg/ml topical cream (20 sources) Corticosteroid Start: 11-20-2024 triamcinolone (Kenalog) 0.1 [...] 11/18/2024 Active valACYclovir 500 mg oral tablet (17 sources) Herpesvirus Nucleoside Analog DNA Polymerase Inhibitor, Herpes Simplex Virus Nucleoside Analog DNA Polymerase Inhibitor, Herpes Zoster Virus Nucleoside Analog DNA Polymerase Inhibitor Start: 12-30-2024 End: 12-25-2025 take 1 tablet by mouth once daily valACYclovir (Valtrex) 500 MG tablet Indications: HSV (herpes simplex virus) infection Take 1 tablet (500 mg) by mouth Daily 30 tablet 12/30/2024 12/25/2025 Active 24 hr venlafaxine 37.5 [...] Drug Class(es) Dates Sig (Normalized) Sig (Original) [id number] 200 actuat albuterol 0.09 mg/actuat metered dose [...] (Anusol-Hc) 25 mg suppository Discontinued 25 MG ID Daily 08 30February 06, 2023 12:00am June 27, 2023 10:32am hydrocortisone acetate 10 mg/ml / pramoxine hydrochloride 10 mg/ml rectal foam (20 sources) Corticosteroid Start: 06-01-2022 End: 09-21-2022 Hydrocortisone-Pram oxine (Proctofoam Hc) 1-1 % foam Discontinued 1 APPLIC ID Three times daily 06 23June 01, 2022 [...] 03-02-2020 take 1 capsule by [facility] once daily linaclotide 145 mcg oral capsule 145 microgram = 1 cap(s), Oral, Daily, # 30 cap(s), Refills(s) 0, Pharmacy: [facility], 158, cm, 03/02/20 13:33:00 EDT, [...] 2018 12:00am November 26, 2018 10:27pm Pnv,Calcium 02-Slgt-Scvca Ac id ( Vitamin Plus Low Iron) 27 mg iron- 1 mg tablet (20 sources) Start: 03-01-2019 End: 12-11-2019 Pnv,Calcium 36-Mtrd-Dygfv Ac id ( Vitamin Plus Low Iron) 27 mg iron- 1 mg tablet Discontinued 27 MG PO Daily February 28, 2019 11:00pm December 11, 2019 8:47pm Start: 03-01-2019 End: 12-11-2019 Pnv,Calcium 17-Qvks-Ndnha Ac id ( Vitamin Plus Low Iron) [...] 06-01-2022 take 8 [oz_av] by [facility] twice daily Psyllium Seed (Sugar) (Metamucil (Sugar) Oral Powder) powder Active 1 TBSP PO Twice daily May 31, 2022 11:00pm mix into at least 8 oz of water or juice before administering Start: 06-01-2022 take 8 [oz_av] by [facility] twice daily Psyllium Seed (Sugar) (Metamucil (Sugar) [...] mass index (BMI) 29.0-29.9, adult] Episodic Other screening for suspected conditions (not [...] ACUTE POSTPROCEDURAL PAIN] Onset: 04-18-2022 Episodic Other and delivery including normal (20 sources) ; Translations: [Encounter for supervision of normal , unspecified, unspecified trimester] Onset: 09-11-2024 01-26-2019 Episodic Previous (1 source) Maternal care for [...] Test Name Value Interpretation Reference Range Facility US OB BPP W NON-STRESS on 02-12-[address] [address] Ultrasound Report Signed Patient: LEANDRA FONSECA MR#: [id number] : 1990 Acct:[id number] Age/Sex: 34 / F ADM Date: 02/12/25 Loc: [facility] 250-[address]: Malcolm Pendleton D.O. Ordering Physician: Malcolm Pendleton D.O. Date of Service: 02/12/25 Procedure(s): US OB BPP w non-stress Accession Number(s): [id number] cc: Malcolm Pendleton D.O.; Physician,Non-Staff Kacey The [place] [address] Patient Name: LEANDRA FONSECA MRN: [facility]:[id number] date: 1990 Sex: F Assigned Patient Location: [facility] Current Patient Location: [facility] Accession/Order Number: [id number] Exam Date: 02/12/2025 09:04 Report Date: 02/12/2025 09:06 At the request of: MALCOLM PENDLETON DO Procedure: US OB BPP w non-stress BIOPHYSICAL PROFILE: CLINICAL INFORMATION: HISTORY OF LABOR COMPARISON: None There is a single live intrauterine gestation in cephalic presentation. The reported gestational age is 32 weeks 4 days. The heart rate [id number] beats per minute. FINDINGS: TONE: 1 or [...] Miller M.D. 02/12/2025 9:06 AM Dictation Location: [place] [address] Electronically authenticated by: [id number] Y Date: 02/12/2025 09:06 Dictated By: Michell Miller M.D. Signed By: 02/12/25907 DD/ 5 TD/TT: Care Connector: [facility] Radiology, Radiologi MD brandy - 02/12/2025 [place] [address] Ultrasound Report Signed Patient: LEANDRA FONSECA MR#: [id number] : 1990 Acct:[id number] Age/Sex: 34 / F ADM Date: 02/12/25 Loc: [facility] 250-[address]: Malcolm Pendleton D.O. Ordering Physician: Malcolm Pendleton D.O. Date of Service: 02/12/25 Procedure(s): US OB BPP w non-stress Accession Number(s): [id number] cc: Malcolm Pendleton D.O.; Physician,Non-Staff [facility] [place] [address] Patient Name: LEANDRA FONSECA MRN: [id number] date: 1990 Sex: F Assigned Patient Location: [facility] Current Patient Location: [facility] Accession/Order Number: [id number] Exam Date: 02/12/2025 09:04 Report Date: 02/12/2025 09:06 At the request of: MALCOLM PENDLETON DO Procedure: US OB BPP w non-stress BIOPHYSICAL PROFILE: CLINICAL INFORMATION: HISTORY OF LABOR COMPARISON: None There is a single live intrauterine gestation in cephalic presentation. The reported gestational age is 32 weeks 4 days. The heart rate [id number] beats per minute. FINDINGS: TONE: 1 or [...] Miller M.D. 02/12/2025 9:06 AM Dictation Location: [place] [address] Electronically authenticated by: [id number] Y Date: 02/12/2025 09:06 Dictated By: Michell Miller M.D. Signed By: 02/12/25907 DD/ 5 TD/TT: Care Connector: [facility] Radiology Study observation (narrative) [facility] US OB BPP W NON-STRESS Ordered By: Radiologist Radiology on 02-12-2025 [facility] Work Phone: Urinalysis macro (dipstick) panel (U)on 02-11-2025 Bilirubin, UA Negative Negative - 4(70) +++ mg/dL [facility] Blood, UA Negative Negative - 50 Hong/mcL [facility] Clarity, UA Clear [facility] Color, UA Yellow [facility] Glucose, UA Negative Negative - 2000(110) ++++ mg/dL [facility] Interpretation and review of laboratory results Normal [facility] Ketones, UA Negative Negative - 160(16) ++++ mg/dL [facility] Leukocytes, UA Negative Negative - 500+++ Iqra/mcL [facility] Nitrite, UA Negative Negative - Positive [facility] pH, UA 7 5 - 9 [facility] Protein, UA Negative Negative - 2000(20) ++++ mg/dL [facility] Spec Grav, UA 1.025 1 - 1.03 [facility] Urobilinogen, UA 1.0 0.2 - 12 mg/dL [facility] Basic Metabolic Panelon 01-15 Anion gap [Moles/Vol] 10.9 mmol/L Normal 6.0-15.0 Th [facility] Comment on above: Performed By: #### E NATALIE, CBC, CMP #### [facility] [address] [place] [address] [place] Calcium [Mass/Vol] 7.9 mg/dL Low 8.6-10.3 [facility] Comment on above: Performed By: #### E NATALIE, CBC, CMP #### [facility] [address] [place] [id number] [place] Chloride [Moles/Vol] 107 mmol/L Normal 98-107 [facility] Comment on above: Performed By: #### E NATALIE, CBC, CMP #### [address] CO2 [Moles/Vol] 21.3 mmol/L Normal 21.0-31.0 [facility] Comment on above: Performed By: #### E WANDA ESTRADA, CMP #### [place] [address] [place] Creatinine [Mass/Vol] 0.51 mg/dL Low 0.60-1.20 [facility] Comment on above: Performed By: #### E WANDA ESTRADA, CMP #### [place] [address] [place] Creatinine Clr Calc Pharmacy 164.96 Normal [facility] Comment on above: Result Comment: PERF ORMED BY: [place] [address] PATHOLOGIST CORRECTIONAL MANAGER TRISTEN MOSELEY M.D. Performed By: #### E WANDA ESTRADA, CMP #### [place] [address] [place] GFR/1.73 sq M.predicted MDRD (S/P/Bld) [Vol rate/Area] mL/min/{1.73_m2} Normal [facility] Comment on above: Performed By: #### E WANDA ESTRADA, CMP #### [place] [address] [place] Glucose [Mass/Vol] 73 mg/dL Normal 70-100 [facility] Comment on above: Result Comment: [place] Glucose Reference Range is dependent on time and content of last meal. Glucose of more than 200 mg/dL in a nonstressed, ambulatory subject supports the diagnosis of Diabetes Mellitus. ADA recommended reference range Performed By: #### E WANDA ESTRADA, CMP #### [place] [address] [place] Potassium [Moles/Vol] 3.2 mmol/L Low 3.5-5.1 [facility] Comment on above: Performed By: #### E WANDA ESTRADA, CMP #### [place] [address] [place] Sodium [Moles/Vol] 136 mmol/L Normal 136-145 [facility] Comment on above: Performed By: #### E NATALIE, CBC, CMP #### [address] Urea nitrogen [Mass/Vol] 4 mg/dL Low 7-25 [facility] Comment on above: Performed By: #### E NATALIE, CBC, CMP #### [address] BioFire Detectedon BioFire Detected Detected Critically abnormal Not Detecte [facility] Comment on above: Result Comment: This is a duplicate RP2.1 COVID (PCR) result to be used for statistical tracking purpose only. PERFORMED BY: [place] [address] PATHOLOGIST CORRECTIONAL MANAGER TRISTEN MOSELEY M.D. Performed By: #### R ANGEL PANEL UPP., BIOFIRECOVDET #### [address] Complete Blood Count Auto Di ffon 02-01-2025 Basophils (Bld) [#/Vol] 0.0 10*3/uL Normal 0.0-0.2 [facility] Comment on above: Result Comment: PERF ORMED BY: [place] [address] PATHOLOGIST CORRECTIONAL MANAGER TRISTEN MOSELEY M.D. Performed By: #### E NATALIE, CBC, CMP #### [address] Basophils/100 WBC (Bld) 0.3 % Normal . [facility] Comment on above: Performed By: #### E NATALIE, CBC, CMP #### [address] Eosinophils (Bld) [#/Vol] 0.1 10*3/uL Normal 0.0-0.45 [facility] Comment on above: Performed By: #### E NATALIE, CBC, CMP #### [address] Eosinophils/100 WBC (Bld) 1.1 % Normal . [facility] Comment on above: Performed By: #### E NATALIE CBC, CMP #### [address] Erythrocyte distribution width (RBC) [Ratio] 14.2 % Normal 11.9-15.3 [facility] Comment on above: Performed By: #### E NATALIE CBC, CMP #### [address] Hematocrit (Bld) [Volume fraction] 29.7 % Low 34.0-46.4 [facility] Comment on above: Performed By: #### E NATALIE CBC, CMP #### [address] Hemoglobin (Bld) [Mass/Vol] 9.5 g/dL Low 11.8-15.4 [facility] Comment on above: Performed By: #### E NATALIE CBC, CMP #### [address] Lymphocytes (Bld) [#/Vol] 1.0 10*3/uL Normal 1.00-4.8 [facility] Comment on above: Performed By: #### E NATALIE CBC, CMP #### [address] Lymphocytes/100 WBC (Bld) 14.8 % Normal . [facility] Comment on above: Performed By: #### E NATALIE CBC, CMP #### [address] MCH (RBC) [Entitic mass] 24.1 pg Low 24.7-34.3 [facility] Comment on above: Performed By: #### E NATALIE, CBC, CMP #### [address] MCV (RBC) [Entitic vol] 75.3 fL Low 80-100 [facility] Comment on above: Performed By: #### E NATALIE, CBC, CMP #### [address] Mean Corpuscular HGB Conc 32.1 g/dL Normal 32.0-35.0 [facility] Comment on above: Performed By: #### E NATALIE, CBC, CMP #### [address] Monocytes (Bld) [#/Vol] 0.7 10*3/uL Normal 0.0-0.8 [facility] Comment on above: Performed By: #### E NATALIE, CBC, CMP #### [address] Monocytes/100 WBC (Bld) 20.57 % High 0.00-20.00 [facility] Comment on above: Result Comment: For adults in ED, MDW > 20.0 may be associated with a higher risk of sepsis during the first 12 hrs of hospital admission Performed By: #### E NATALIE, CBC, CMP #### [address] Monocytes/100 WBC (Bld) 9.9 % Normal . [facility] Comment on above: Performed By: #### E NATALIE, CBC, CMP #### [address] Neutrophils (Bld) [#/Vol] 4.8 10*3/uL Normal 1.8-7.7 [facility] Comment on above: Performed By: #### E NATALIE, CBC, CMP #### [address] Neutrophils/100 WBC (Bld) 73.9 % Normal . [facility] Comment on above: Performed By: #### E NATALIE, CBC, CMP #### [address] NRBC% 0.1 /100{WBC} Normal 0-0.5 [facility] Comment on above: Performed By: #### E NATALIE, CBC, CMP #### [address] Platelet mean volume (Bld) [Entitic vol] 9.3 fL Normal 6.3-10.7 [facility] Comment on above: Performed By: #### E NATALIE, CBC, CMP #### [address] Platelets (Bld) [#/Vol] 143 10*3/uL Low 150-450 [facility] Comment on above: Performed By: #### E NATALIE, CBC, CMP #### [address] RBC (Bld) [#/Vol] 3.94 10*6/uL Normal 3.60-5.00 [facility] Comment on above: Performed By: #### E NATALIE, CBC, CMP #### [address] WBC (Bld) [#/Vol] 6.5 10*3/uL Normal 3.8-11.6 [facility] Comment on above: Performed By: #### E NATALIE, CBC, CMP #### [place] [address] [place] Dipstick and Microscopicon 0 02-01-2025 Appearance (U) Clear Normal Clear [facility] Comment on above: Order Comment: Name Collection Type:: Clean-Voided Midstream Performed By: #### E NATALIE, CBC, CMP #### [place] [address] [place] Bacteria,Urine 1+ High None Seen [facility] Comment on above: Order Comment: Name Collection Type:: Clean-Voided Midstream Performed By: #### E NATALIE, CBC, CMP #### [place] [address] [place] Bilirubin,Urine Negative Normal Negative [facility] Comment on above: Order Comment: Name Collection Type:: Clean-Voided Midstream Performed By: #### E NATALIE, CBC, CMP #### [address] Color (U) Light-Yellow Normal Yellow [facility] Comment on above: Order Comment: Name Collection Type:: Clean-Voided Midstream Performed By: #### E NATALIE, CBC, CMP #### [address] Glucose Ql (U) Normal Normal Normal [facility] Comment on above: Order Comment: Name Collection Type:: Clean-Voided Midstream Performed By: #### E NATALIE, CBC, CMP #### [address] Hyaline Casts,Urine None Normal 0-8 [facility] Comment on above: Order Comment: Name Collection Type:: Clean-Voided Midstream Performed By: #### E NATALIE, CBC, CMP #### [address] Ketones Ql (U) 3+ High Negative [facility] Comment on above: Order Comment: Name Collection Type:: Clean-Voided Midstream Performed By: #### E NATALIE, CBC, CMP #### [address] Leukocyte esterase Test strip Ql (U) 2+ High Negative [facility] Comment on above: Order Comment: Name Collection Type:: Clean-Voided Midstream Performed By: #### E NATALIE, CBC, CMP #### [address] Mucus,Urine Rare Normal [facility] Comment on above: Order Comment: Name Collection Type:: Clean-Voided Midstream Result Comment: PERF ORMED BY: [place] [address] PATHOLOGIST CORRECTIONAL MANAGER TRISTEN MOSELEY M.D. Performed By: #### E NATALIE, CBC, CMP #### [place] [address] [place] Nitrite,Urine Negative Normal Negative [facility] Comment on above: Order Comment: Name Collection Type:: Clean-Voided Midstream Performed By: #### E NATALIE, CBC, CMP #### [address] Occult Blood,Urine Negative Normal Negative [facility] Comment on above: Order Comment: Name Collection Type:: Clean-Voided Midstream Result Comment: PERF ORMED BY: [place] [address] PATHOLOGIST CORRECTIONAL MANAGER TRISTEN MOSELEY M.D. Performed By: #### E NATALIE, CBC, CMP #### [address] pH (U) 6.5 [pH] Normal 5.0-9.0 [facility] Comment on above: Order Comment: Name Collection Type:: Clean-Voided Midstream Performed By: #### E NATALIE, CBC, CMP #### [address] Protein,Urine Negative Normal Negative [facility] Comment on above: Order Comment: Name Collection Type:: Clean-Voided Midstream Performed By: #### E NATALIE, CBC, CMP #### [address] RBC,Urine 1-2 Normal 0-4 [facility] Comment on above: Order Comment: Name Collection Type:: Clean-Voided Midstream Performed By: #### E NATALIE, CBC, CMP #### [address] Specificy Morrison,Urine 1.011 Normal 1.001-1.03 0 [facility] Comment on above: Order Comment: Name Collection Type:: Clean-Voided Midstream Performed By: #### E NATALIE, CBC, CMP #### [address] Squamous Epithelial Cell,Urine 5-9 High 0-2 [facility] Comment on above: Order Comment: Name Collection Type:: Clean-Voided Midstream Performed By: #### E NATALIE, CBC, CMP #### [address] Urobilinogen,Urine Normal Normal Normal [facility] Comment on above: Order Comment: Name Collection Type:: Clean-Voided Midstream Performed By: #### E NATALIE, CBC, CMP #### [address] WBC,Urine 1-2 Normal 0-4 [facility] Comment on above: Order Comment: Name Collection Type:: Clean-Voided Midstream Performed By: #### E NATALIE, CBC, CMP #### [address] Quick Strepon 02-01-2025 Quick Strep Streptococcus pyogen es Ag [Presence] in Throat by Rapid immunoassay Negative for Group A Strep Antigen Note 1 NOTE 2 Results are those of a screening test. NOTE 3 If clinically indicated please order a culture. NOTE 4 NOTE 5 Reference range = Negative PERFORMED BY: [place] [address] PATHOLOGIST CORRECTIONAL MANAGER TRISTEN Galvez [facility] Comment on above: Performed By: #### E NATALIE, WANDA, CMP #### [address] Respiratory (Upper) Panel, P CRon 02-01-2025 [...] Influenza A H3 Blank Space PERFORMED BY: [place] [address] PATHOLOGIST CORRECTIONAL MANAGER TRISTEN MOSELEY M.D. Normal [facility] Comment on above: Performed By: #### R ANGEL PANEL UPP., BIOFIRECOVDET #### [facility] [address] [place] [address] Ferritinon 01-28-2025 Ferritin [Mass/Vol] 43.0 ng/mL Normal 11.0-306.8 [facility] Comment on above: Result Comment: PERF ORMED BY: [place] [address] PATHOLOGIST CORRECTIONAL MANAGER TRISTEN MOSELEY M.D. Performed By: #### Albino NATALIE, CBC, CMP #### [facility] [address] [place] [address] Ferritin [Mass/volume] in Se rum or PlasmaOrdered By: Priscilla Warren on 01-28-2025 Ferritin [Mass/Vol] Ferritin [Mass/volum e] in Serum or Plasma 11.0-306.8 [facility] Transferrinon 01-28-2025 Transferrin [Mass/Vol] 226 mg/dL Normal 203-362 [facility] Comment on above: Performed By: #### E NATALIE, CBC, CMP #### [facility] [address] Transferrin [Mass/volume] in Serum or PlasmaOrdered By: Priscilla Warren on 01-28-2025 Transferrin [Mass/Vol] Transferrin [Mass /volume] in Serum or Plasma 203-362 [facility] RECURRENT VAGINITIS (HTRX)on 01-15-2025 ATOPOBIUM VAGINAE 25.517 Abnormal [facility] ATOPOBIUM VAGINAE Detected Abnormal [facility] BVAB 2,3 (BACTERIAL VAGINOSIS ASSOCIATED BACTERIA 2, 3); MOBILUNCUS SPP 23.796 Abnormal [facility] BVAB 2,3 (BACTERIAL VAGINOSIS ASSOCIATED BACTERIA 2, 3); MOBILUNCUS SPP Detected Abnormal [facility] MARION ALBICANS, PARAPSILOSIS, TROPICALIS 0 [facility] MARION ALBICANS, PARAPSILOSIS, TROPICALIS Not detected [facility] MARION GLABRATA 0 [facility] MARION GLABRATA Not detected [facility] MARION KRUSEI 0 [facility] MARION KRUSEI Not detected [facility] CHLAMYDIA TRACHOMATIS 0 [facility] CHLAMYDIA TRACHOMATIS Not detected N [facility] GARDNERELLA VAGINALIS 0 [facility] GARDNERELLA VAGINALIS Not detected N [facility] Interpretation and review of laboratory results Abnormal [facility] MEGASPHAERA (TYPES 1, 2) 0 [facility] MEGASPHAERA (TYPES 1, 2) Not detected [facility] MYCOPLASMA GENITALIUM 0 [facility] MYCOPLASMA GENITALIUM Not detected N [facility] NEISSERIA GONORRHOEAE 0 [facility] NEISSERIA GONORRHOEAE Not detected N [facility] TRICHOMONAS VAGINALIS 0 [facility] TRICHOMONAS VAGINALIS Not detected N [facility] Urinalysis macro (dipstick) panel (U)on 01-14-2025 Bilirubin, UA Negative Negative - 4(70) +++ mg/dL [facility] Blood, UA Positive Negative - 50 Hong/mcL [facility] Comment on above: Trace-lysed Clarity, UA Clear [facility] Color, UA Yellow [facility] Glucose, UA Negative Negative - 1999(110) ++++ mg/dL [facility] Interpretation and review of laboratory results Abnormal [facility] Ketones, UA Positive Negative - 160(16) ++++ mg/dL [facility] Comment on above: Trace Leukocytes, UA Negative Negative - 500+++ Iqra/mcL [facility] Nitrite, UA Negative Negative - Positive [facility] pH, UA 7 5 - 9 [facility] Protein, UA Trace Negative - 1999(20) ++++ mg/dL [facility] Spec Grav, UA 1.025 1 - 1.03 [facility] Urobilinogen, UA 1.0 0.2 - 12 mg/dL [facility] ALL CBC WITH AUTO DIFFon BASOPHILS ABSOLUTE AUTO 0 [facility] Basophils/100 WBC (Bld) 0.2 % 0.2 - 2.0 % [facility] Eosinophils/100 WBC (Bld) 1 % 0.9 - 7.0 % [facility] Erythrocyte distribution width (RBC) [Ratio] 13.4 % 11.0 - 15.0 % [facility] Hematocrit (Bld) [Volume fraction] 30.3 % Low 36.0 - 48.0 % [facility] Hemoglobin (Bld) [Mass/Vol] 9.4 g/dL Low 12.0 - 16.0 g/dL [facility] IMMATURE GRANULOCYTES ABS AUTO 0.05 High [facility] Immature granulocytes/100 WBC (Bld) 0.6 % High 0.0 - 0.5 % [facility] Interpretation and review of laboratory results Abnormal [facility] LYMPHOCYTES ABSOLUTE AUTO 1.2 [facility] Lymphocytes/100 WBC (Bld) 13.6 % Low 20.5 - 60.0 % [facility] MCH (RBC) [Entitic mass] 23.9 pg Low 26.7 - 34.0 pg [facility] MCHC (RBC) [Mass/Vol] 31 g/dL 29.9 - 35.2 g/dL [facility] MCV (RBC) [Entitic vol] 77.1 fL Low 81.0 - 99.0 fL [facility] MONOCYTES ABSOLUTE AUTO 0.6 [facility] Monocytes/100 WBC (Bld) 6.7 % 1.7 - 12.0 % [facility] NEUTROPHILS ABSOLUTE AUTO 6.9 High [facility] Neutrophils/100 WBC (Bld) 77.9 % High 43.0 - 75.0 % [facility] Platelet mean volume (Bld) [Entitic vol] 11.3 fL 9.5 - 13.5 fL [facility] EO # 0.1 [facility] PLT 187 [facility] RBC 3.93 Low [facility] WBC 8.9 [facility] ALL CBC WITH AUTO DIFFon BASOPHILS ABSOLUTE AUTO 0 [facility] Basophils/100 WBC (Bld) 0.2 % 0.2 - 2.0 % [facility] Eosinophils/100 WBC (Bld) 1.2 % 0.9 - 7.0 % [facility] Erythrocyte distribution width (RBC) [Ratio] 13.5 % 11.0 - 15.0 % [facility] Hematocrit (Bld) [Volume fraction] 29.8 % Low 36.0 - 48.0 % [facility] Hemoglobin (Bld) [Mass/Vol] 9.3 g/dL Low 12.0 - 16.0 g/dL [facility] IMMATURE GRANULOCYTES ABS AUTO 0.03 [facility] Immature granulocytes/100 WBC (Bld) 0.4 % 0.0 - 0.5 % [facility] Interpretation and review of laboratory results Abnormal [facility] LYMPHOCYTES ABSOLUTE AUTO 1.3 [facility] Lymphocytes/100 WBC (Bld) 15.8 % Low 20.5 - 60.0 % [facility] MCH (RBC) [Entitic mass] 24.2 pg Low 26.7 - 34.0 pg [facility] MCHC (RBC) [Mass/Vol] 31.2 g/dL 29.9 - 35.2 g/dL [facility] MCV (RBC) [Entitic vol] 77.4 fL Low 81.0 - 99.0 fL [facility] MONOCYTES ABSOLUTE AUTO 0.5 [facility] Monocytes/100 WBC (Bld) 6.2 % 1.7 - 12.0 % [facility] NEUTROPHILS ABSOLUTE AUTO 6.3 [facility] Neutrophils/100 WBC (Bld) 76.2 % High 43.0 - 75.0 % [facility] Platelet mean volume (Bld) [Entitic vol] 11.7 fL 9.5 - 13.5 fL [facility] EO # 0.1 [facility] PLT 184 [facility] TB RBC 3.85 Low [facility] WBC 8.3 [facility] RECURRENT VAGINITIS (HTRX)on 12-31-2024 ATOPOBIUM VAGINAE 0 Abnormal [facility] ATOPOBIUM VAGINAE Inconclusive Abnormal [facility] BVAB 2,3 (BACTERIAL VAGINOSIS ASSOCIATED BACTERIA 2, 3); MOBILUNCUS SPP 0 Abnormal [facility] BVAB 2,3 (BACTERIAL VAGINOSIS ASSOCIATED BACTERIA 2, 3); MOBILUNCUS SPP Inconclusive Abnormal [facility] MARION ALBICANS, PARAPSILOSIS, TROPICALIS 0 Abnormal [facility] MARION ALBICANS, PARAPSILOSIS, TROPICALIS Inconclusive Abnormal [facility] MARION GLABRATA 0 Abnormal [facility] MARION GLABRATA Inconclusive Abnormal [facility] MARION KRUSEI 0 Abnormal [facility] MARION KRUSEI Inconclusive Abnormal [facility] CHLAMYDIA TRACHOMATIS 0 Abnormal [facility] CHLAMYDIA TRACHOMATIS Inconclusive Abnormal [facility] GARDNERELLA VAGINALIS 0 Abnormal [facility] GARDNERELLA VAGINALIS Inconclusive Abnormal [facility] Interpretation and review of laboratory results Abnormal [facility] MEGASPHAERA (TYPES 1, 2) 0 Abnormal [facility] MEGASPHAERA (TYPES 1, 2) Inconclusive Abnormal [facility] MYCOPLASMA GENITALIUM 0 Abnormal [facility] MYCOPLASMA GENITALIUM Inconclusive Abnormal [facility] NEISSERIA GONORRHOEAE 0 Abnormal [facility] NEISSERIA GONORRHOEAE Inconclusive Abnormal [facility] TRICHOMONAS VAGINALIS 0 Abnormal [facility] TRICHOMONAS VAGINALIS Inconclusive Abnormal [facility] Alanine aminotransferase [En zymatic activity/volume] in Serum or PlasmaOrdered By: Kelly Hough on 11-07-2024 ALT [Catalytic activity/Vol] Alanine aminotransferase [Enzymatic activity/volume] in Serum or Plasma 7-52 [facility] Albumin [Mass/volume] in Ser um or Plasma by Bromocresol green (BCG) dye binding methoOrdered By: Kelly Hough on 11-07-2024 Albumin BCG dye [Mass/Vol] Albumin [Mass/volume] in Serum or Plasma by Bromocresol green (BCG) dye binding metho 3.5-5.7 [facility] Alkaline phosphatase [Enzyma tic activity/volume] in Serum or PlasmaOrdered By: Kelly Hough on 11-07-2024 ALP [Catalytic activity/Vol] Alkaline phosphatase [Enzymatic activity/volume] in Serum or Plasma 34-104 [facility] Aspartate aminotransferase [ Enzymatic activity/volume] in Serum or PlasmaOrdered By: Kelly France on 11-07-2024 AST [Catalytic activity/Vol] Aspartate aminotransferase [Enzymatic activity/volume] in Serum or Plasma Low 13-39 [facility] Basophils Auto (Bld) [#/Vol] Ordered By: Kelly France on 11-07-2024 Basophils (Bld) [#/Vol] Automated basophil count 0.0-0.2 [facility] Basophils/100 WBC Auto (Bld) Ordered By: Kelly Hough on 11-07-2024 Basophils/100 WBC (Bld) Automated basophil % . [facility] Bilirubin.total [Mass/volume ] in Serum or PlasmaOrdered By: Kelly France on 11-07-2024 Bilirubin [Mass/Vol] Bilirubin.total [Mass/volume] in Serum or Plasma 0.3-1.0 [facility] CBC W Auto Differential pane l (Bld)on 11-07-2024 Basophils (Bld) [#/Vol] 0 10*3/uL 0.0 - 0.2 10*3/uL [facility] Basophils/100 WBC Manual cnt (Syn fld) 0.3 % . [facility] Eosinophils (Bld) [#/Vol] 0.1 10*3/uL 0.0 - 0.45 10*3/uL [facility] Eosinophils/100 WBC Manual cnt (Syn fld) 1.1 % . [facility] Erythrocyte distribution width (RBC) [Ratio] 14.4 % 11.9 - 15.3 % [facility] Hematocrit (Bld) [Volume fraction] 30.7 % Low 34.0 - 46.4 % [facility] Hemoglobin (Bld) [Mass/Vol] 9.7 g/dL Low 11.8 - 15.4 g/dL [facility] Interpretation and review of laboratory results Abnormal [facility] Lymphocytes (Bld) [#/Vol] 1.7 10*3/uL 1.00 - 4.8 10*3/uL [facility] Lymphocytes/100 WBC Manual cnt (Syn fld) 16.9 % . [facility] MCH (RBC) [Entitic mass] 23.3 pg Low 24.7 - 34.3 pg [facility] MCHC (RBC) [Mass/Vol] 31.7 g/dL Low 32.0 - 35.0 g/dL [facility] MCV (RBC) [Entitic vol] 73.4 fL Low 80 - 100 fL [facility] Monocytes (Bld) [#/Vol] 0.7 10*3/uL 0.0 - 0.8 10*3/uL [facility] Monocytes+Macrophages/ 100 WBC Manual cnt (Syn fld) 6.7 % . [facility] Neutrophils (Bld) [#/Vol] 7.4 10*3/uL 1.8 - 7.7 10*3/uL [facility] Neutrophils/100 WBC Manual cnt (Syn fld) 75 % . [facility] NRBC 0.1 /100{WBC} 0 - 0.5 /100{WBC} [facility] Platelet mean volume (Bld) [Entitic vol] 9.5 fL 6.3 - 10.7 fL [facility] Platelets (Bld) [#/Vol] 182 10*3/uL 150 - 450 10*3/uL [facility] RBC LM.HPF (Urine sed) [#/Area] 4.18 10*6/uL 3.60 - 5.00 10*6/uL [facility] WBC (Bld) [#/Vol] 9.9 10*3/uL 3.8 - 11.6 10*3/uL [facility] WBC LM.HPF (Urine sed) [#/Area] 9.9 10*3/uL 3.8 - 11.6 10*3/uL [facility] Calcium [Mass/volume] in Ser um or PlasmaOrdered By: Kelly Hough on 11-07-2024 Calcium [Mass/Vol] Calcium [Mass/volume ] in Serum or Plasma Low 8.6-10.3 [facility] Carbon dioxide, total [Moles /volume] in Serum or PlasmaOrdered By: Kelly Hough on 11-07-2024 CO2 [Moles/Vol] Carbon dioxide, tota l [Moles/volume] in Serum or Plasma 21.0-31.0 [facility] Chloride [Moles/volume] in S salas or PlasmaOrdered By: Kelly Hough on 11-07-2024 Chloride [Moles/Vol] Chloride [Moles/vol ume] in Serum or Plasma 98-107 [facility] Complete Blood Count Auto Di ffon 11-07-2024 Basophils (Bld) [#/Vol] 0.0 10*3/uL Normal 0.0-0.2 [facility] Comment on above: Result Comment: PERF ORMED BY: [place] [address] PATHOLOGIST CORRECTIONAL MANAGER TRISTEN MOSELEY M.D. Performed By: #### C OVID19 FLU RSV, CEPHEID NEG #### [address] Basophils/100 WBC (Bld) 0.3 % Normal . [facility] Comment on above: Performed By: #### C OVID19 FLU RSV, CEPHEID NEG #### [address] Eosinophils (Bld) [#/Vol] 0.1 10*3/uL Normal 0.0-0.45 [facility] Comment on above: Performed By: #### C OVID19 FLU RSV, CEPHEID NEG #### [address] Eosinophils/100 WBC (Bld) 1.1 % Normal . [facility] Comment on above: Performed By: #### C OVID19 FLU RSV, CEPHEID NEG #### [address] Erythrocyte distribution width (RBC) [Ratio] 14.4 % Normal 11.9-15.3 [facility] Comment on above: Performed By: #### C OVID19 FLU RSV, CEPHEID NEG #### [address] Hematocrit (Bld) [Volume fraction] 30.7 % Low 34.0-46.4 [facility] Comment on above: Performed By: #### C OVID19 FLU RSV, CEPHEID NEG #### [place] [address] [place] Hemoglobin (Bld) [Mass/Vol] 9.7 g/dL Low 11.8-15.4 [facility] Comment on above: Performed By: #### C OVID19 FLU RSV, CEPHEID NEG #### [address] Lymphocytes (Bld) [#/Vol] 1.7 10*3/uL Normal 1.00-4.8 [facility] Comment on above: Performed By: #### C OVID19 FLU RSV, CEPHEID NEG #### [address] Lymphocytes/100 WBC (Bld) 16.9 % Normal . [facility] Comment on above: Performed By: #### C OVID19 FLU RSV, CEPHEID NEG #### [address] MCH (RBC) [Entitic mass] 23.3 pg Low 24.7-34.3 [facility] Comment on above: Performed By: #### C OVID19 FLU RSV, CEPHEID NEG #### [address] MCV (RBC) [Entitic vol] 73.4 fL Low 80-100 [facility] Comment on above: Performed By: #### C OVID19 FLU RSV, CEPHEID NEG #### [address] Mean Corpuscular HGB Conc 31.7 g/dL Low 32.0-35.0 [facility] Comment on above: Performed By: #### C OVID19 FLU RSV, CEPHEID NEG #### [address] Monocytes (Bld) [#/Vol] 0.7 10*3/uL Normal 0.0-0.8 [facility] Comment on above: Performed By: #### C OVID19 FLU RSV, CEPHEID NEG #### [address] Monocytes/100 WBC (Bld) 6.7 % Normal . [facility] Comment on above: Performed By: #### C OVID19 FLU RSV, CEPHEID NEG #### [address] Neutrophils (Bld) [#/Vol] 7.4 10*3/uL Normal 1.8-7.7 [facility] Comment on above: Performed By: #### C OVID19 FLU RSV, CEPHEID NEG #### [address] Neutrophils/100 WBC (Bld) 75.0 % Normal . [facility] Comment on above: Performed By: #### C OVID19 FLU RSV, CEPHEID NEG #### [address] NRBC% 0.1 /100{WBC} Normal 0-0.5 [facility] Comment on above: Performed By: #### C OVID19 FLU RSV, CEPHEID NEG #### [address] Platelet mean volume (Bld) [Entitic vol] 9.5 fL Normal 6.3-10.7 [facility] Comment on above: Performed By: #### C OVID19 FLU RSV, CEPHEID NEG #### [address] Platelets (Bld) [#/Vol] 182 10*3/uL Normal 150-450 [facility] Comment on above: Performed By: #### C OVID19 FLU RSV, CEPHEID NEG #### [address] RBC (Bld) [#/Vol] 4.18 10*6/uL Normal 3.60-5.00 [facility] Comment on above: Performed By: #### C OVID19 FLU RSV, CEPHEID NEG #### [place] [address] [place] WBC (Bld) [#/Vol] 9.9 10*3/uL Normal 3.8-11.6 [facility] Comment on above: Performed By: #### C OVID19 FLU RSV, CEPHEID NEG #### [address] Comprehensive Metabolic Pane tommie 11-07-2024 Albumin [Mass/Vol] 3.5 g/dL Normal 3.5-5.7 [facility] Comment on above: Performed By: #### C OVID19 FLU RSV, CEPHEID NEG #### [facility] [address] Albumin/Globulin [Mass ratio] 1.3 {ratio} Normal [facility] Comment on above: Performed By: #### C OVID19 FLU RSV, CEPHEID NEG #### [address] ALP [Catalytic activity/Vol] 42 U/L Normal 34-104 [facility] Comment on above: Performed By: #### C OVID19 FLU RSV, CEPHEID NEG #### [address] ALT [Catalytic activity/Vol] 12 U/L Normal 7-52 [facility] Comment on above: Performed By: #### C OVID19 FLU RSV, CEPHEID NEG #### [address] Anion gap [Moles/Vol] 11.4 mmol/L Normal 6.0-15.0 [facility] Comment on above: Performed By: #### C OVID19 FLU RSV, CEPHEID NEG #### [address] AST [Catalytic activity/Vol] 12 U/L Low 13-39 [facility] Comment on above: Performed By: #### C OVID19 FLU RSV, CEPHEID NEG #### [place] [address] [place] Bilirubin [Mass/Vol] 0.3 mg/dL Normal 0.3-1.0 [facility] Comment on above: Performed By: #### C OVID19 FLU RSV, CEPHEID NEG #### [place] [address] [place] Calcium [Mass/Vol] 8.5 mg/dL Low 8.6-10.3 [facility] Comment on above: Performed By: #### C OVID19 FLU RSV, CEPHEID NEG #### [facility] [address] [place] [address] [place] Chloride [Moles/Vol] 106 mmol/L Normal 98-107 [facility] Comment on above: Performed By: #### C OVID19 FLU RSV, CEPHEID NEG #### [facility] [address] CO2 [Moles/Vol] 23.4 mmol/L Normal 21.0-31.0 [facility] Comment on above: Performed By: #### C OVID19 FLU RSV, CEPHEID NEG #### [place] [address] [place] Creatinine [Mass/Vol] 0.53 mg/dL Low 0.60-1.20 [facility] Comment on above: Performed By: #### C OVID19 FLU RSV, CEPHEID NEG #### [place] [address] [place] Creatinine Clr Calc Pharmacy 143.46 Normal [facility] Comment on above: Performed By: #### C OVID19 FLU RSV, CEPHEID NEG #### [place] [address] [place] GFR/1.73 sq M.predicted MDRD (S/P/Bld) [Vol rate/Area] mL/min/{1.73_m2} Normal [facility] Comment on above: Performed By: #### C OVID19 FLU RSV, CEPHEID NEG #### [place] [address] [place] Globulin (S) [Mass/Vol] 2.6 g/dL Normal [facility] Comment on above: Performed By: #### C OVID19 FLU RSV, CEPHEID NEG #### [place] [address] [place] Glucose [Mass/Vol] 75 mg/dL Normal 70-100 [facility] Comment on above: Result Comment: [place] Glucose Reference Range is dependent on time and content of last meal. Glucose of more than 200 mg/dL in a nonstressed, ambulatory subject supports the diagnosis of Diabetes Mellitus. ADA recommended reference range Performed By: #### C OVID19 FLU RSV, CEPHEID NEG #### [facility] [address] Potassium [Moles/Vol] 3.8 mmol/L Normal 3.5-5.1 [facility] Comment on above: Performed By: #### C OVID19 FLU RSV, CEPHEID NEG #### [facility] [address] Protein [Mass/Vol] 6.1 g/dL Low 6.4-8.9 [facility] Comment on above: Performed By: #### C OVID19 FLU RSV, CEPHEID NEG #### [facility] [address] Sodium [Moles/Vol] 137 mmol/L Normal 136-145 [facility] Comment on above: Performed By: #### C OVID19 FLU RSV, CEPHEID NEG #### [place] [address] [place] Urea nitrogen [Mass/Vol] 11 mg/dL Normal 7-25 [facility] Comment on above: Performed By: #### C OVID19 FLU RSV, CEPHEID NEG #### [address] Creatinine [Mass/volume] in Serum or PlasmaOrdered By: Kelly Hough on 11-07-2024 Creatinine [Mass/Vol] Creatinine [Mass/v olume] in Serum or Plasma Low 0.60-1.20 [facility] Eosinophils Auto (Bld) [#/Vo l]Ordered By: Kelly Hough on 11-07-2024 Eosinophils (Bld) [#/Vol] Automated eosinophil count 0.0-0.45 [facility] Eosinophils/100 WBC Auto (Bl d)Ordered By: Kelly Hough on 11-07-2024 Eosinophils/100 WBC (Bld) Automated eosinophil % . [facility] Erythrocyte distribution wid th Auto (RBC) [Ratio]Ordered By: Kelly Hough on 11-07-2024 Erythrocyte distribution width (RBC) [Ratio] Erythrocyte distribution width [Ratio] by Automated count 11.9-15.3 [facility] Ferritinon 11-07-2024 Ferritin [Mass/Vol] 93.7 ng/mL Normal 11.0-306.8 [facility] Comment on above: Performed By: #### C OVID19 FLU RSV, CEPHEID NEG #### [facility] [address] [place] [id number] [facility] Ferritin [Mass/volume] in Se rum or PlasmaOrdered By: Kelly Hough on 11-07-2024 Ferritin [Mass/Vol] Ferritin [Mass/volum e] in Serum or Plasma 11.0-306.8 [facility] Folateon 11-07-2024 Folate 8.1 ng/mL Normal >5.9 [facility] Comment on above: Result Comment: Breana te reference range: >5.9 ng/ml The WHO technical consultation on folate and vitamin b12 deficiencies has determined that folate concentrations less than 4 ng/ml are considered deficient. PERFORMED BY: [place] [address] PATHOLOGIST CORRECTIONAL MANAGER TRISTEN MOSELEY M.D. Performed By: #### C OVID19 FLU RSV, CEPHEID NEG #### [facility] [address] [id number] [facility] Folate [Mass/volume] in Seru m or PlasmaOrdered By: Kelly Hough on 11-07-2024 Folate [Mass/Vol] Folate [Mass/volume] in Serum or Plasma >5.9 [facility] Comment on above: Folate reference ran ge: >5.9 ng/mlThe WHO technical consultation on folate and vitamin [id number] has determined that folate concentrations lessthan 4 ng/ml are considered deficient. Globulin Calc (S) [Mass/Vol] Ordered By: Kelly Hough on 11-07-2024 Globulin (S) [Mass/Vol] Serum globulin measurement by calculation (mass/volume) [facility] Glucose [Mass/volume] in Ser um or PlasmaOrdered By: Kelly Hough on 11-07-2024 Glucose [Mass/Vol] Glucose [Mass/volume ] in Serum or Plasma 70-100 [facility] Comment on above: ADA recommended refe rence rangeRandom Glucose Reference Range is dependent on time and content of last meal. Glucose of more than 200 mg/dL in a nonstressed, ambulatory subject supports the diagnosis of Diabetes Mellitus. Hematocrit Auto (Bld) [Volum e fraction]Ordered By: Kelly Hough on 11-07-2024 Hematocrit (Bld) [Volume fraction] Hematocrit [Volume Fraction] of Blood by Automated count Low 34.0-46.4 [facility] Hemoglobin [Mass/volume] in BloodOrdered By: Kelly Hough on 11-07-2024 Hemoglobin (Bld) [Mass/Vol] Hemoglobin [Mass/volume] in Blood Low 11.8-15.4 [facility] Iron [Mass/volume] in Serum or PlasmaOrdered By: Kelly Hough on 11-07-2024 Iron [Mass/Vol] Iron [Mass/volume] i n Serum or Plasma 50-212 [facility] Iron and TIBC Profileon 10-19 % Iron Saturation 21.4 % Normal 20-50 [facility] Comment on above: Performed By: #### C OVID19 FLU RSV, CEPHEID NEG #### [address] Iron [Mass/Vol] 62 ug/dL Normal 50-212 [facility] Comment on above: Performed By: #### C OVID19 FLU RSV, CEPHEID NEG #### [address] Total Iron Binding Capacity 290 ug/dL Normal 255-450 [facility] Comment on above: Performed By: #### C OVID19 FLU RSV, CEPHEID NEG #### [address] Transferrin [Mass/Vol] 207 mg/dL Normal 203-362 [facility] Comment on above: Performed By: #### C OVID19 FLU RSV, CEPHEID NEG #### [place] [address] [place] Leukocytes [#/volume] correc delmer for nucleated erythrocytes in Blood by Automated counOrdered By: Kelly Hough on 11-07-2024 WBC corrected for nucl RBC Auto (Bld) [#/Vol] Leukocytes [#/volume] corrected for nucleated erythrocytes in Blood by Automated coun 3.8-11.6 [facility] Lymphocytes Auto (Bld) [#/Vo l]Ordered By: Kelly Hough on 11-07-2024 Lymphocytes (Bld) [#/Vol] Lymphocytes [#/volume] in Blood by Automated count 1.00-4.8 [facility] Lymphocytes/100 WBC Auto (Bl d)Ordered By: Kelly Hough on 11-07-2024 Lymphocytes/100 WBC (Bld) Lymphocytes/100 leukocytes in Blood by Automated count . [facility] MCH Auto (RBC) [Entitic mass ]Ordered By: Kelly Hough on 11-07-2024 MCH (RBC) [Entitic mass] MCH [Entitic mass] by Automated count Low 24.7-34.3 [facility] MCHC Auto (RBC) [Mass/Vol]Or dered By: Kelly Hough on 11-07-2024 MCHC (RBC) [Mass/Vol] MCHC [Mass/volume] by Automated count Low 32.0-35.0 [facility] MCV Auto (RBC) [Entitic vol] Ordered By: Kelly Hough on 11-07-2024 MCV (RBC) [Entitic vol] MCV [Entitic volume] by Automated count Low 80-100 [facility] Monocytes Auto (Bld) [#/Vol] Ordered By: Kelly Hough on 11-07-2024 Monocytes (Bld) [#/Vol] Automated blood monocyte count 0.0-0.8 [facility] Monocytes/100 WBC Auto (Bld) Ordered By: Kelly Hough on 11-07-2024 Monocytes/100 WBC (Bld) Automated monocyte % . [facility] Neutrophils Auto (Bld) [#/Vo l]Ordered By: Kelly Hough on 11-07-2024 Neutrophils (Bld) [#/Vol] Neutrophils [#/volume] in Blood by Automated count 1.8-7.7 [facility] Neutrophils/100 WBC Auto (Bl d)Ordered By: Kelly Hough on 11-07-2024 Neutrophils/100 WBC (Bld) Automated neutrophil % . [facility] No Panel InformationOrdered By: Kelly Hough on 11-07-2024 Estimated GFR (CKD-EPI) > 60.0 mL/Min [facility] Pharmacy Creatinine Clearance (Chem 143.46 [facility] Nucleated erythrocytes [Pres ence] in Blood by Automated countOrdered By: Kelly Hough on 11-07-2024 Nucleated RBC Auto Ql (Bld) Nucleated erythrocytes [Presence] in Blood by Automated count 0-0.5 [facility] Platelet mean volume Auto (B ld) [Entitic vol]Ordered By: Kelly Hough on 11-07-2024 Platelet mean volume (Bld) [Entitic vol] Platelet mean volume [Entitic volume] in Blood by Automated count 6.3-10.7 [facility] Platelets Auto (Bld) [#/Vol] Ordered By: Kelly Hough on 11-07-2024 Platelets (Bld) [#/Vol] Platelets [#/volume] in Blood by Automated count 150-450 [facility] Potassium [Moles/volume] in Serum or PlasmaOrdered By: Kelly Hough on 11-07-2024 Potassium [Moles/Vol] Potassium [Moles/v olume] in Serum or Plasma 3.5-5.1 [facility] Protein [Mass/volume] in Ser um or PlasmaOrdered By: Kelly Hough on 11-07-2024 Protein [Mass/Vol] Protein [Mass/volume ] in Serum or Plasma Low 6.4-8.9 [facility] RBC Auto (Bld) [#/Vol]Ordere d By: Kelly Hough on 11-07-2024 RBC (Bld) [#/Vol] Erythrocytes [#/volu me] in Blood by Automated count 3.60-5.00 [facility] Serum or plasma albumin/glob ulin mass ratioOrdered By: Kelly Hough on 11-07-2024 Albumin/Globulin [Mass ratio] Serum or plasma albumin/globulin mass ratio [facility] Serum or plasma anion gap de terminationOrdered By: Kelly Hough on 11-07-2024 Anion gap [Moles/Vol] Serum or plasma an ion gap determination 6.0-15.0 [facility] Serum or plasma iron binding capacity measurement (mass/volume)Ordered By: Kelly Hough on 11-07-2024 Iron binding capacity [Mass/Vol] Iron binding capacity [Mass/volume] in Serum or Plasma 255-450 [facility] Serum or plasma iron saturat ion measurement (mass fraction)Ordered By: Kelly Hough on 11-07-2024 Iron saturation [Mass fraction] Iron saturation [Mass Fraction] in Serum or Plasma 20-50 [facility] Sodium [Moles/volume] in Ser um or PlasmaOrdered By: Kelly Hough on 11-07-2024 Sodium [Moles/Vol] Sodium [Moles/volume ] in Serum or Plasma 136-145 [facility] Transferrin [Mass/volume] in Serum or PlasmaOrdered By: Kelly Hough on 11-07-2024 Transferrin [Mass/Vol] Transferrin [Mass /volume] in Serum or Plasma 203-362 [facility] Urea nitrogen [Mass/volume] in Serum or PlasmaOrdered By: Kelly Hough on 11-07-2024 Urea nitrogen [Mass/Vol] Urea nitrogen [Mass/volume] in Serum or Plasma 7-25 [facility] WBC Auto (Bld) [#/Vol]Ordere d By: Kelly Hough on 11-07-2024 WBC (Bld) [#/Vol] Leukocytes [#/volume ] in Blood by Automated count 3.8-11.6 [facility] Urinalysis macro (dipstick) panel (U)on 11-04-2024 Bilirubin, UA Negative Negative - 4(70) +++ mg/dL [facility] Blood, UA Positive Negative - 50 Hong/mcL [facility] Comment on above: moderate Clarity, UA Clear [facility] Color, UA Marylu [facility] Glucose, UA Negative Negative - 1999(110) ++++ mg/dL [facility] Interpretation and review of laboratory results Abnormal [facility] Ketones, UA Negative Negative - 160(16) ++++ mg/dL [facility] Leukocytes, UA Negative Negative - 500+++ Iqra/mcL [facility] Nitrite, UA Negative Negative - Positive [facility] pH, UA 6 5 - 9 [facility] Protein, UA Negative Negative - 1999(20) ++++ mg/dL [facility] Spec Grav, UA 1.025 1 - 1.03 [facility] Urobilinogen, UA 1.0 0.2 - 12 mg/dL [facility] IGP,APTIMA HPV,AGE GDLNon AGE GDLN ACOG TESTING Note . [facility] Comment on above: TESTS RESULT FLAG UN ITS REF RANGE LAB Clinician Provided Cytology Information Source.............Cervix Other.............. No. of containers..01 ThinPrep Vial Age Algo ACOG Diana... 32 01 FLAG LEGEND: L-Low Normal,H-High Normal,LL-Alert Low,HH-Alert High <-Panic Low,>-Panic High,A-Abnormal,AA-Critical Abnormal Performed at: 01 =[facility] [id number] Doreen Payne MD, HPV APTIMA Positive Abnormal Negative [facility] Comment on above: This nucleic acid am plification test detects fourteen high- risk HPV types (16,18,31,33,35,39,45,51,52,56,58,59,66,68) without differentiation. Performed at: =[facility] [employer] [id number] Publications Designer: Doreen Payne MD, Phone: [phone] Performed at: [facility] [employer] [address] [place] [id number] Publications Designer: Marcin Alarcon MD, Phone: [phone] IGP, APTIMA HPV, RFX 16/18,45 Note Abnormal . [facility] Comment on above: TESTS RESULT FLAG UN ITS REF RANGE LAB DIAGNOSIS: [A] 02 EPITHELIAL CELL ABNORMALITY. LOW GRADE SQUAMOUS INTRAEPITHELIAL LESION (LSIL). Recommendation: [A] 02 Suggest follow up as clinically appropriate. Specimen adequacy: 02 Satisfactory for evaluation. No endocervical component is identified. Performed by: 02 Michael Streeter, Factory Focus Technician (ASCP) Electronically si... 02 Winter Santo MD, [...] High,A-Abnormal,AA-Critical Abnormal Performed at: 02 [facility] [id number] [place] [id number] Marcin Alarcon MD, 03 WB [facility] [address] [place] [address] Doreen Payne MD, Interpretation and review of laboratory results Abnormal [facility] Urinalysis macro (dipstick) panel (U)on 10-14-2024 Bilirubin, UA Negative Negative - 4(70) +++ mg/dL [facility] Blood, UA Positive Negative - 50 Hong/mcL [facility] Clarity, UA Clear [facility] Color, UA Yellow [facility] Glucose, UA Negative Negative - 1999(110) ++++ mg/dL [facility] Interpretation and review of laboratory results Abnormal [facility] Ketones, UA Negative Negative - 160(16) ++++ mg/dL [facility] Leukocytes, UA Negative Negative - 500+++ Iqra/mcL [facility] Nitrite, UA Negative Negative - Positive [facility] pH, UA 7 5 - 9 [facility] Protein, UA Negative Negative - 1999(20) ++++ mg/dL [facility] Spec Grav, UA 1.025 1 - 1.03 [facility] Urobilinogen, UA 1.0 0.2 - 12 mg/dL [facility] ALL CBC WITH AUTO DIFFon BASOPHILS ABSOLUTE AUTO 0 [facility] Basophils/100 WBC (Bld) 0.1 % Low 0.2 - 2.0 % [facility] Eosinophils/100 WBC (Bld) 1.4 % 0.9 - 7.0 % [facility] Erythrocyte distribution width (RBC) [Ratio] 13.6 % 11.0 - 15.0 % [facility] Hematocrit (Bld) [Volume fraction] 34.1 % Low 36.0 - 48.0 % [facility] Hemoglobin (Bld) [Mass/Vol] 10.5 g/dL Low 12.0 - 16.0 g/dL [facility] IMMATURE GRANULOCYTES ABS AUTO 0.03 [facility] Immature granulocytes/100 WBC (Bld) 0.4 % 0.0 - 0.5 % [facility] Interpretation and review of laboratory results Abnormal [facility] LYMPHOCYTES ABSOLUTE AUTO 1.3 [facility] Lymphocytes/100 WBC (Bld) 18.3 % Low 20.5 - 60.0 % [facility] MCH (RBC) [Entitic mass] 23 pg Low 26.7 - 34.0 pg [facility] MCHC (RBC) [Mass/Vol] 30.8 g/dL 29.9 - 35.2 g/dL [facility] MCV (RBC) [Entitic vol] 74.8 fL Low 81.0 - 99.0 fL [facility] MONOCYTES ABSOLUTE AUTO 0.5 [facility] Monocytes/100 WBC (Bld) 6.3 % 1.7 - 12.0 % [facility] NEUTROPHILS ABSOLUTE AUTO 5.3 [facility] Neutrophils/100 WBC (Bld) 73.5 % 43.0 - 75.0 % [facility] Platelet mean volume (Bld) [Entitic vol] 11.1 fL 9.5 - 13.5 fL [facility] TBH EO # 0.1 [facility]H PLT 230 [facility] TB RBC 4.56 [facility] WBC 7.2 [facility] Urinalysis macro (dipstick) panel (U)on 09-11-2024 Bilirubin, UA Negative Negative - 4(70) +++ mg/dL [facility] Blood, UA Positive Negative - 50 Hong/mcL [facility] Comment on above: trace Clarity, UA Clear [facility] Color, UA Yellow [facility] Glucose, UA Negative Negative - 1999(110) ++++ mg/dL [facility] Interpretation and review of laboratory results Abnormal [facility] Ketones, UA Negative Negative - 160(16) ++++ mg/dL [facility] Leukocytes, UA Trace Negative - 500+++ Iqra/mcL [facility] Nitrite, UA Negative Negative - Positive [facility] pH, UA 7 5 - 9 [facility] Protein, UA Negative Negative - 1999(20) ++++ mg/dL [facility] Spec Grav, UA 1.01 1 - 1.03 [facility] Urobilinogen, UA 0.2 0.2 - 12 mg/dL [facility] Urine Cultureon 09-11-2024 Bacteria identified Cx Nom (U) >100,000 colonies/ml mixed bacterial skin contaminants 2 Days PERFORMED BY: [facility] [place] [address] PATHOLOGIST CORRECTIONAL MANAGER TRISTEN MOSELEY M.D. Normal [facility] Comment on above: Performed By: #### C OVID19 FLU RSV, CEPHEID NEG #### [facility] [address] Urine cultureOrdered By: David Pendleton on 09-11-2024 Bacteria identified Cx Nom (U) Urine culture [facility] HCG ( test) Ql (U)o n 08-26-2024 Interpretation and review of laboratory results Abnormal [facility] Preg Test, Ur Positive Negative [facility] Urinalysis macro (dipstick) panel (U)on 08-26-2024 Bilirubin, UA Negative Negative - 4(70) +++ mg/dL [facility] Blood, UA Negative Negative - 50 Hong/mcL [facility] Clarity, UA Clear [facility] Color, UA Yellow [facility] Glucose, UA Negative Negative - 2000(110) ++++ mg/dL [facility] Interpretation and review of laboratory results Abnormal [facility] Ketones, UA Positive Negative - 160(16) ++++ mg/dL [facility] Leukocytes, UA Negative Negative - 500+++ Iqra/mcL [facility] Nitrite, UA Negative Negative - Positive [facility] pH, UA 7 5 - 9 [facility] Protein, UA Negative Negative - 2000(20) ++++ mg/dL [facility] Spec Grav, UA 1.015 1 - 1.03 [facility] Urobilinogen, UA 1.0 0.2 - 12 mg/dL [facility] ECG 12 lead ECGon 08-07-2024 ECG 12 lead ECG [facility] [address] [place] [address] Electrocardiograph Report Signed Patient: Leandra Fonseca MR#: [id number] : 1990 Acct:[id number] Age/Sex: 34 / F ADM Date: 08/06/24 Loc: Room: [address] [place] [address] Type: ADM IN Attending Dr: Julián Naqvi [...] by 30 bpm Confirmed by Brock Rowe ([id number]) on 08/07/2024 5:03:20 PM Referred By: Electronically Signed By: Brock Rowe Transcribed By: MUS Signed By Brock Rowe MD 08/07/24 1703 Normal [facility] US OB transvaginalon 024 US OB transvaginal [facility] [address] [place] [address] Ultrasound Report Signed Patient: Leandra Fonseca MR#: [id number] : 1990 Acct:[id number] Age/Sex: 34 / F ADM Date: 08/06/24 Loc: Room: [address] [place] [address] Type: ADM IN Attending Dr: Julián Naqvi MD Ordering Provider: Julián Naqvi MD; TAM TRACY MD Date of Service: 08/07/24 US/US OB <= 14 weeks fetus: dating and anatomy ([id number]) US/US OB transvaginal: . Copies to: MD [...] Michell Miller M.D.08/07/2024 6:32 PM Dictation Location: [place] [address] Tech: Tena Heather Transcribed By: CHRISTINE 08/07/241831 Dictated By: Michell Miller MD 08/07/241824 Signed By: 08/07/241831 Normal [facility] Alanine aminotransferase [En zymatic activity/volume] in Serum or PlasmaOrdered By: Marvin Serrano on 08-06-2024 ALT [Catalytic activity/Vol] Alanine aminotransferase [Enzymatic activity/volume] in Serum or Plasma 7-52 [facility] Albumin [Mass/volume] in Ser um or Plasma by Bromocresol green (BCG) dye binding methoOrdered By: Marvin Serrano on 08-06-2024 Albumin BCG dye [Mass/Vol] Albumin [Mass/volume] in Serum or Plasma by Bromocresol green (BCG) dye binding metho 3.5-5.7 [facility] Alkaline phosphatase [Enzyma tic activity/volume] in Serum or PlasmaOrdered By: Marvin Serrano on 08-06-2024 ALP [Catalytic activity/Vol] Alkaline phosphatase [Enzymatic activity/volume] in Serum or Plasma 34-104 [facility] Amphetamine Screen Ql (U)Ord ered By: Marvin Serrano on 08-06-2024 Amphetamines Ql (U) Amphetamines screen Negativ e [facility] Appearance of UrineOrdered B y: Marvin Serrano on 08-06-2024 Appearance (U) Urine appearance Clear [facility] Aspartate aminotransferase [ Enzymatic activity/volume] in Serum or PlasmaOrdered By: Marvin Serrano on 08-06-2024 AST [Catalytic activity/Vol] Aspartate aminotransferase [Enzymatic activity/volume] in Serum or Plasma Low 13-39 [facility] Bacteria [Presence] in Urine by AutomatedOrdered By: Marvin Serrano on 08-06-2024 Bacteria Auto Ql (U) Bacteria [Presence] in Urine by Automated None Seen [facility] Barbiturates [Presence] in U rine by Screen methodOrdered By: Marvin Serrano on 08-06-2024 Barbiturates Screen Ql (U) Barbiturates [Presence] in Urine by Screen method Negative [facility] Basophils Auto (Bld) [#/Vol] Ordered By: Marvin Serrano on 08-06-2024 Basophils (Bld) [#/Vol] Automated basophil count 0.0-0.2 [facility] Basophils/100 WBC Auto (Bld) Ordered By: Marvin Serrano on 08-06-2024 Basophils/100 WBC (Bld) Automated basophil % . [facility] Benzodiazepines Screen Ql (U )Ordered By: Marvin Serrano on 08-06-2024 Benzodiazepines Ql (U) Benzodiazepines [ Presence] in Urine by Screen method Negative [facility] Benzoylecgonine [Presence] i n Urine by Screen methodOrdered By: Marvin Serrano on 08-06-2024 Benzoylecgonine Screen Ql (U) Benzoylecgonine [Presence] in Urine by Screen method Negative [facility] Bilirubin Test strip Ql (U)O rdered By: Marvin Serrano on 08-06-2024 Bilirubin Ql (U) Bilirubin.total [Pre sence] in Urine by Test strip Negative [facility] Bilirubin.total [Mass/volume ] in Serum or PlasmaOrdered By: Marvin Serrano on 08-06-2024 Bilirubin [Mass/Vol] Bilirubin.total [Mass/volume] in Serum or Plasma 0.3-1.0 [facility] Calcium [Mass/volume] in Ser um or PlasmaOrdered By: Marvin Serrano on 08-06-2024 Calcium [Mass/Vol] Calcium [Mass/volume ] in Serum or Plasma 8.6-10.3 [facility] Cannabinoids [Presence] in U rine by Screen methodOrdered By: Marvin Serrano on 08-06-2024 Cannabinoids Screen Ql (U) Cannabinoids [Presence] in Urine by Screen method Negative [facility] Comment on above: These are unconfirme d [...] l [Moles/volume] in Serum or Plasma 21.0-31.0 [facility] Chloride [Moles/volume] in S salas or PlasmaOrdered By: Marvin Serrano on 08-06-2024 Chloride [Moles/Vol] Chloride [Moles/vol ume] in Serum or Plasma 98-107 [facility] Choriogonadotropin.beta subu nit [Units/volume] in Serum or PlasmaOrdered By: Marvin Serrano on 08-06-2024 HCG.beta subunit Qn Choriogonadotropin.b eta subunit [Units/volume] in Serum or Plasma [facility] Comment on above: Approximate Approxim ate hCG Gestational Age Range (mIU/ml) (weeks)0.2-1 5-50 1-2 50-500 2-3 100-5,000 3-4 500-10,000 4-5 1,000-50,000 5-6 10,000-100,000 6-8 15,000-200,000 8-12 10,000-100,000 Color Auto (U)Ordered By: Dane Serrano on 08-06-2024 Color (U) Color of Urine by Auto Yellow [facility] Complete Blood Count Auto Di ffon 08-06-2024 Basophils (Bld) [#/Vol] 0.1 10*3/uL Normal 0.0-0.2 [facility] Comment on above: Result Comment: PERF ORMED BY: [place] [address] PATHOLOGIST CORRECTIONAL MANAGER TRISTEN MOSELEY M.D. Performed By: #### E NATALIE, CBC, CMP #### [address] Basophils/100 WBC (Bld) 0.7 % Normal . [facility] Comment on above: Performed By: #### E NATALIE, CBC, CMP #### [place] [address] [place] Eosinophils (Bld) [#/Vol] 0.1 10*3/uL Normal 0.0-0.45 [facility] Comment on above: Performed By: #### E NATALIE, CBC, CMP #### [place] [address] [place] Eosinophils/100 WBC (Bld) 0.8 % Normal . [facility] Comment on above: Performed By: #### E NATALIE, CBC, CMP #### [address] Erythrocyte distribution width (RBC) [Ratio] 14.0 % Normal 11.9-15.3 [facility] Comment on above: Performed By: #### E NATALIE, CBC, CMP #### [address] Hematocrit (Bld) [Volume fraction] 33.2 % Low 34.0-46.4 [facility] Comment on above: Performed By: #### E NATALIE, CBC, CMP #### [place] [address] [place] Hemoglobin (Bld) [Mass/Vol] 10.5 g/dL Low 11.8-15.4 [facility] Comment on above: Performed By: #### E NATALIE, CBC, CMP #### [place] [address] [place] Lymphocytes (Bld) [#/Vol] 1.0 10*3/uL Normal 1.00-4.8 [facility] Comment on above: Performed By: #### E NATALIE, CBC, CMP #### [address] Lymphocytes/100 WBC (Bld) 12.7 % Normal . [facility] Comment on above: Performed By: #### E NATALIE, CBC, CMP #### [address] MCH (RBC) [Entitic mass] 23.0 pg Low 24.7-34.3 [facility] Comment on above: Performed By: #### E NATALIE, CBC, CMP #### [address] MCV (RBC) [Entitic vol] 73.0 fL Low 80-100 [facility] Comment on above: Performed By: #### E NATALIE, CBC, CMP #### [address] Mean Corpuscular HGB Conc 31.5 g/dL Low 32.0-35.0 [facility] Comment on above: Performed By: #### E NATALIE, CBC, CMP #### [address] [address] Monocytes (Bld) [#/Vol] 0.5 10*3/uL Normal 0.0-0.8 [facility] Comment on above: Performed By: #### E NATALIE, CBC, CMP #### [address] Monocytes/100 WBC (Bld) 17.93 % Normal 0.00-20.00 [facility] Comment on above: Performed By: #### E NATALIE, CBC, CMP #### [address] Monocytes/100 WBC (Bld) 6.8 % Normal . [facility] Comment on above: Performed By: #### E NATALIE, CBC, CMP #### [address] Neutrophils (Bld) [#/Vol] 6.2 10*3/uL Normal 1.8-7.7 [facility] Comment on above: Performed By: #### E NATALIE, CBC, CMP #### [address] Neutrophils/100 WBC (Bld) 79.0 % Normal . [facility] Comment on above: Performed By: #### E NATALIE, CBC, CMP #### [address] NRBC% 0.0 /100{WBC} Normal 0-0.5 [facility] Comment on above: Performed By: #### E NATALIE, CBC, CMP #### [address] Platelet mean volume (Bld) [Entitic vol] 9.3 fL Normal 6.3-10.7 [facility] Comment on above: Performed By: #### E NATALIE, CBC, CMP #### [address] Platelets (Bld) [#/Vol] 220 10*3/uL Normal 150-450 [facility] Comment on above: Performed By: #### E NATALIE CBC, CMP #### [address] RBC (Bld) [#/Vol] 4.55 10*6/uL Normal 3.60-5.00 [facility] Comment on above: Performed By: #### E NATALIE, CBC, CMP #### [address] WBC (Bld) [#/Vol] 7.9 10*3/uL Normal 3.8-11.6 [facility] Comment on above: Performed By: #### E NATALIE, CBC, CMP #### [address] Comprehensive Metabolic Pane tommie 08-06-2024 Albumin [Mass/Vol] 4.0 g/dL Normal 3.5-5.7 [facility] Comment on above: Performed By: #### E NATALIE, CBC, CMP #### [facility] [address] [place] [address] [place] Albumin/Globulin [Mass ratio] 1.3 {ratio} Normal [facility] Comment on above: Performed By: #### E NATALIE CBC, CMP #### [facility] [address] ALP [Catalytic activity/Vol] 44 U/L Normal 34-104 [facility] Comment on above: Performed By: #### E NATALIE CBC, CMP #### [facility] [address] ALT [Catalytic activity/Vol] 7 U/L Normal 7-52 [facility] Comment on above: Performed By: #### E WANDA ESTRADA, CMP #### [facility] [address] Anion gap [Moles/Vol] 11.0 mmol/L Normal 6.0-15.0 [facility] Comment on above: Performed By: #### E WANDA ESTRADA, CMP #### [address] AST [Catalytic activity/Vol] 11 U/L Low 13-39 [facility] Comment on above: Performed By: #### E WANDA ESTRADA, CMP #### [place] [address] [place] Bilirubin [Mass/Vol] 0.6 mg/dL Normal 0.3-1.0 [facility] Comment on above: Performed By: #### E WANDA ESTRADA, CMP #### [facility] [address] [place] [address] [place] Calcium [Mass/Vol] 9.0 mg/dL Normal 8.6-10.3 [facility] Comment on above: Performed By: #### E WANDA ESTRADA, CMP #### [facility] [address] [place] [address] [place] Chloride [Moles/Vol] 107 mmol/L Normal 98-107 [facility] Comment on above: Performed By: #### E WANDA ESTRADA, CMP #### [address] CO2 [Moles/Vol] 22.7 mmol/L Normal 21.0-31.0 [facility] Comment on above: Performed By: #### E WANDA ESTRADA, CMP #### [address] Creatinine [Mass/Vol] 0.64 mg/dL Normal 0.60-1.20 [facility] Comment on above: Performed By: #### E WANDA ESTRADA, CMP #### [place] [address] [place] Creatinine Clr Calc Pharmacy 119.09 Normal [facility] Comment on above: Result Comment: PERF ORMED BY: [place] [address] PATHOLOGIST CORRECTIONAL MANAGER TRISTEN MOSELEY M.D. Performed By: #### E WANDA ESTRADA, CMP #### [address] GFR/1.73 sq M.predicted MDRD (S/P/Bld) [Vol rate/Area] mL/min/{1.73_m2} Normal [facility] Comment on above: Performed By: #### E WANDA ESTRADA, CMP #### [address] Globulin (S) [Mass/Vol] 3.0 g/dL Normal [facility] Comment on above: Performed By: #### E WANDA ESTRADA, CMP #### [address] Glucose [Mass/Vol] 98 mg/dL Normal 70-100 [facility] Comment on above: Result Comment: [place] om Glucose Reference Range is dependent on time and content of last meal. Glucose of more than 200 mg/dL in a nonstressed, ambulatory subject supports the diagnosis of Diabetes Mellitus. ADA recommended reference range Performed By: #### E WANDA ESTRADA, CMP #### [address] Potassium [Moles/Vol] 3.7 mmol/L Normal 3.5-5.1 [facility] Comment on above: Performed By: #### E NATALIE, CBC, CMP #### [address] Protein [Mass/Vol] 7.0 g/dL Normal 6.4-8.9 [facility] Comment on above: Performed By: #### E NATALIE, CBC, CMP #### [address] Sodium [Moles/Vol] 137 mmol/L Normal 136-145 [facility] Comment on above: Performed By: #### E NATALIE, CBC, CMP #### [address] Urea nitrogen [Mass/Vol] 7 mg/dL Normal 7-25 [facility] Comment on above: Performed By: #### E NATALIE, CBC, CMP #### [address] Creatinine [Mass/volume] in Serum or PlasmaOrdered By: Marvin Serrano on 08-06-2024 Creatinine [Mass/Vol] Creatinine [Mass/v olume] in Serum or Plasma 0.60-1.20 [facility] Dipstick and Microscopicon 1 10-06-2023 Appearance (U) Clear Normal Clear [facility] Comment on above: Order Comment: Name Collection Type:: Clean-Voided Midstream Performed By: #### A DDONUAPLUS, UHCG, URDS #### [place] [address] [place] Bacteria,Urine Rare Normal None Seen [facility] Comment on above: Order Comment: Name Collection Type:: Clean-Voided Midstream Performed By: #### A DDONUAPLUS, UHCG, URDS #### [place] [address] [place] Bilirubin,Urine Negative Normal Negative [facility] Comment on above: Order Comment: Name Collection Type:: Clean-Voided Midstream Performed By: #### A DDONUAPLUS, UHCG, URDS #### [address] Color (U) Light-Yellow Normal Yellow [facility] Comment on above: Order Comment: Name Collection Type:: Clean-Voided Midstream Performed By: #### A DDONUAPLUS, UHCG, URDS #### [address] Glucose Ql (U) Normal Normal Normal [facility] Comment on above: Order Comment: Name Collection Type:: Clean-Voided Midstream Performed By: #### A DDONUAPLUS, UHCG, URDS #### [address] Hyaline Casts,Urine None Normal 0-8 [facility] Comment on above: Order Comment: Name Collection Type:: Clean-Voided Midstream Performed By: #### A DDONUAPLUS, UHCG, URDS #### [address] Ketones Ql (U) 3+ High Negative [facility] Comment on above: Order Comment: Name Collection Type:: Clean-Voided Midstream Performed By: #### A DDONUAPLUS, UHCG, URDS #### [address] Leukocyte esterase Test strip Ql (U) Negative Normal Negative [facility] Comment on above: Order Comment: Name Collection Type:: Clean-Voided Midstream Performed By: #### A DDONUAPLUS, UHCG, URDS #### [place] [address] [place] Mucus,Urine Rare Normal [facility] Comment on above: Order Comment: Name Collection Type:: Clean-Voided Midstream Performed By: #### A DDONUAPLUS, UHCG, URDS #### [place] [address] [place] Nitrite,Urine Negative Normal Negative [facility] Comment on above: Order Comment: Name Collection Type:: Clean-Voided Midstream Performed By: #### A DDONUAPLUS, UHCG, URDS #### [address] Occult Blood,Urine Trace High Negative [facility] Comment on above: Order Comment: Name Collection Type:: Clean-Voided Midstream Performed By: #### A DDONUAPLUS, UHCG, URDS #### [address] pH (U) 7.0 [pH] Normal 5.0-9.0 [facility] Comment on above: Order Comment: Name Collection Type:: Clean-Voided Midstream Performed By: #### A DDONUAPLUS, UHCG, URDS #### [address] Protein,Urine Negative Normal Negative [facility] Comment on above: Order Comment: Name Collection Type:: Clean-Voided Midstream Performed By: #### A DDONUAPLUS, UHCG, URDS #### [address] RBC,Urine 1 [HPF] Normal 0-4 [facility] Comment on above: Order Comment: Name Collection Type:: Clean-Voided Midstream Performed By: #### A DDONUAPLUS, UHCG, URDS #### [address] Specificy [place],Urine 1.016 Normal 1.001-1.03 0 [facility] Comment on above: Order Comment: Name Collection Type:: Clean-Voided Midstream Performed By: #### A DDONUAPLUS, UHCG, URDS #### [address] Squamous Epithelial Cell,Urine 5 [HPF] High 0-2 [facility] Comment on above: Order Comment: Name Collection Type:: Clean-Voided Midstream Performed By: #### A DDONUAPLUS, UHCG, URDS #### [address] Urobilinogen,Urine Normal Normal Normal [facility] Comment on above: Order Comment: Name Collection Type:: Clean-Voided Midstream Performed By: #### A DDONUAPLUS, UHCG, URDS #### [address] WBC,Urine 1 [HPF] Normal 0-4 [facility] Comment on above: Order Comment: Name Collection Type:: Clean-Voided Midstream Performed By: #### A DDONUAPLUS, UHCG, URDS #### [address] Drug Screen,Urineon 08-06-20 24 Amphetamine Screen,Urine Negative Normal Negative [facility] Comment on above: Performed By: #### A DDONUAPLUS, UHCG, URDS #### [address] Barbiturate Screen,Urine Negative Normal Negative [facility] Comment on above: Performed By: #### A DDONUAPLUS, UHCG, URDS #### [address] Benzodiazepines Screen,Urine Negative Normal Negative [facility] Comment on above: Performed By: #### A DDONUAPLUS, UHCG, URDS #### [address] Cannabinoid Screen,Urine Negative Normal Negative [facility] Comment on above: Result Comment: Thes e are unconfirmed results and should not be used for legal purposes. Drug Cut-Off Concentration: AMPH 1000 ng/mL BEKA 200 ng/mL CALDERON 200 ng/mL COCM 300 ng/mL OP 300 ng/mL PCP 25 ng/mL THC 20 ng/mL PERFORMED BY: [place] [address] PATHOLOGIST CORRECTIONAL MANAGER TRISTEN MOSELEY M.D. Performed By: #### A DDONUAPLUS, UHCG, URDS #### [address] Cocaine Screen,Urine Negative Normal Negative [facility] Comment on above: Performed By: #### A DDONUAPLUS, UHCG, URDS #### [place] [id number] [place] Opiate Screen,Urine Negative Normal Negative [facility] Comment on above: Performed By: #### A DDONUAPLUS, UHCG, URDS #### [facility] [address] Phencyclidine Screen,Urine Negative Normal Negative [facility] Comment on above: Performed By: #### A DDONUAPLUS, UHCG, URDS #### [facility] [address] Eosinophils Auto (Bld) [#/Vo l]Ordered By: Marvin Serrano on 08-06-2024 Eosinophils (Bld) [#/Vol] Automated eosinophil count 0.0-0.45 [facility] Eosinophils/100 WBC Auto (Bl d)Ordered By: Marvin Serrano on 08-06-2024 Eosinophils/100 WBC (Bld) Automated eosinophil % . [facility] Epithelial cells.squamous [# /area] in Urine sediment by Automated countOrdered By: Marvin Serrano on 08-06-2024 Epithelial cells.squamous Auto (Urine sed) [#/Area] Epithelial cells.squamous [#/area] in Urine sediment by Automated count High 0-2 [facility] Erythrocyte distribution wid th Auto (RBC) [Ratio]Ordered By: Marvin Serrano on 08-06-2024 Erythrocyte distribution width (RBC) [Ratio] Erythrocyte distribution width [Ratio] by Automated count 11.9-15.3 [facility] Erythrocytes [#/area] in Uri ne sediment by Automated countOrdered By: Marvin Serrano on 08-06-2024 RBC Auto (Urine sed) [#/Area] Erythrocytes [#/area] in Urine sediment by Automated count 0-4 [facility] Ethanol [Mass/volume] in Ser um or PlasmaOrdered By: Marvin Serrano on 08-06-2024 Ethanol [Mass/Vol] Ethanol [Mass/volume ] in Serum or Plasma [facility] Comment on above: Test not performed Ethyl Alcohol Profileon 07-19 Ethanol [Mass/Vol] mg/dL Normal [facility] Comment on above: Performed By: #### E NATALIE, CBC, CMP #### [facility] [address] Percent Ethanol Not performed Normal [facility] Comment on above: Result Comment: PERF ORMED BY: [facility] [address] [place] [address] PATHOLOGIST CORRECTIONAL MANAGER TRISTEN MOSELEY M.D. Performed By: #### E NATALIE, CBC, CMP #### [facility] [address] [place] [id number] [facility] Globulin Calc (S) [Mass/Vol] Ordered By: Marvin Serrano on 08-06-2024 Globulin (S) [Mass/Vol] Serum globulin measurement by calculation (mass/volume) [facility] Glucose [Mass/volume] in Ser um or PlasmaOrdered By: Marvin Serrano on 08-06-2024 Glucose [Mass/Vol] Glucose [Mass/volume ] in Serum or Plasma 70-100 [facility] Comment on above: ADA recommended refe rence rangeRandom Glucose Reference Range is dependent on time and content of last meal. Glucose of more than 200 mg/dL in a nonstressed, ambulatory subject supports the diagnosis of Diabetes Mellitus. Glucose [Mass/volume] in Uri ne by Test stripOrdered By: Marvin Serrano on 08-06-2024 Glucose Test strip (U) [Mass/Vol] Glucose [Mass/volume] in Urine by Test strip Normal [facility] HCG ( test) IA.rapi d Ql (U)Ordered By: Marvin Serrano on 08-06-2024 HCG ( test) Ql (U) Urine human chorionic gonadotropin (hCG) detection by immunoassay High [facility] HCG,Quantitativeon HCG,Quantitative 93621.00 m[iU]/mL Normal [facility] Comment on above: Result Comment: Appr oximate Approximate hCG Gestational Age Range (mIU/ml) (weeks) 0.2-1 5-50 1-2 50-500 2-3 100-5,000 3-4 500-10,000 4-5 1,000-50,000 5-6 10,000-100,000 6-8 15,000-200,000 8-12 10,000-100,000 PERFORMED BY: [facility] [address] [place] [id number] PATHOLOGIST CORRECTIONAL MANAGER TRISTEN MOSELEY M.D. Performed By: #### C OVID19 FLU RSV, CEPHEID NEG #### [facility] [address] [place] [address] [place] HCG,Urineon 08-06-2024 Beta HCG ( test) Ql (U) Positive High [facility] Comment on above: Order Comment: Name Collection Type:: Clean-Voided Midstream Result Comment: PERF ORMED BY: [place] [address] PATHOLOGIST CORRECTIONAL MANAGER TRISTEN MOSELEY M.D. Performed By: #### A DDONUAPLUS, UHCG, URDS #### [facility] [address] [place] [address] Hematocrit Auto (Bld) [Volum e fraction]Ordered By: Marvin Serrano on 08-06-2024 Hematocrit (Bld) [Volume fraction] Hematocrit [Volume Fraction] of Blood by Automated count Low 34.0-46.4 [facility] Hemoglobin Test strip Ql (U) Ordered By: Marvin Serrano on 08-06-2024 Hemoglobin Ql (U) Hemoglobin [Presence ] in Urine by Test strip High Negative [facility] Hemoglobin [Mass/volume] in BloodOrdered By: Marvin Serrano on 08-06-2024 Hemoglobin (Bld) [Mass/Vol] Hemoglobin [Mass/volume] in Blood Low 11.8-15.4 [facility] Hyaline casts [#/area] in Ur ine sediment by Automated countOrdered By: Marvin Serrano on 08-06-2024 Hyaline casts Auto (Urine sed) [#/Area] Hyaline casts [#/area] in Urine sediment by Automated count 0-8 [facility] Ketones Test strip Ql (U)Ord ered By: Marvin Serrano on 08-06-2024 Ketones Ql (U) Ketones [Presence] i n Urine by Test strip High Negative [facility] Leukocyte esterase [Presence ] in Urine by Test stripOrdered By: Marvin Serrano on 08-06-2024 Leukocyte esterase Test strip Ql (U) Leukocyte esterase [Presence] in Urine by Test strip Negative [facility] Leukocytes [#/area] in Urine sediment by Automated countOrdered By: Marvin Serrano on 08-06-2024 WBC Auto (Urine sed) [#/Area] Leukocytes [#/area] in Urine sediment by Automated count 0-4 [facility] Leukocytes [#/volume] correc delmer for nucleated erythrocytes in Blood by Automated counOrdered By: Marvin Serrano on 08-06-2024 WBC corrected for nucl RBC Auto (Bld) [#/Vol] Leukocytes [#/volume] corrected for nucleated erythrocytes in Blood by Automated coun 3.8-11.6 [facility] Lipid Panelon 08-06-2024 Cholesterol [Mass/Vol] 128 mg/dL Low 140-200 [facility] Comment on above: Order Comment: Comme nt use ER blood Result Comment: Chol less than 200 mg/dl low risk Chol 201-239 mg/dl borderline risk Chol 240 mg/dl and greater high risk Performed By: #### C OVID19 FLU RSV, CEPHEID NEG #### [facility] [address] [place] [id number] [place] Cholesterol in HDL [Mass/Vol] 59 mg/dL Normal 23-92 [facility] Comment on above: Order Comment: Comme nt use ER blood Result Comment: HDL CHOL ATP-III CLASSIFICATION Cardiovascular Risk HDL > or equal to 60 mg/dL LOW HDL < 40 mg/dL HIGH Performed By: #### C OVID19 FLU RSV, CEPHEID NEG #### [facility] [address] [place] [address] [place] Cholesterol.total/Chol esterol in HDL [Mass ratio] 2.2 {ratio} Normal <5.0 [facility] Comment on above: Order Comment: Comme nt use ER blood Performed By: #### C OVID19 FLU RSV, CEPHEID NEG #### [facility] [address] [place] [address] [place] LDL Cholesterol,Calculated 63 mg/dL Normal 0-100 [facility] Comment on above: Order Comment: Comme nt use ER blood Result Comment: LDL ATP III CLASSIFICATION LDL less than 100 mg/dL Optimal LDL 100-129 mg/dL Near or above optimal LDL 130-159 mg/dL Borderline high LDL 160-189 mg/dL High LDL greater than 189 mg/dL Very high Performed By: #### C OVID19 FLU RSV, CEPHEID NEG #### [facility] [address] Triglyceride w/Reflex 29 mg/dL Normal 0-149 [facility] Comment on above: Order Comment: Comme nt use ER blood Result Comment: TRIG ATP III CLASSIFICATION TRIG less than 150 mg/dL Normal TRIG 150-199 mg/dL Borderline high TRIG 200-500 mg/dL High TRIG greater than 500 mg/dL Very high Standard traceable to the Center for Disease Conrtrol and Prevention (CDC) test method. Performed By: #### C OVID19 FLU RSV, CEPHEID NEG #### [facility] [address] VLDL CHOLESTEROL 5 mg/dL Normal [facility] Comment on above: Order Comment: Comme nt use ER blood Performed By: #### C OVID19 FLU RSV, CEPHEID NEG #### [facility] [address] [place] [address] [place] Lymphocytes Auto (Bld) [#/Vo l]Ordered By: Marvin Serrano on 08-06-2024 Lymphocytes (Bld) [#/Vol] Lymphocytes [#/volume] in Blood by Automated count 1.00-4.8 [facility] Lymphocytes/100 WBC Auto (Bl d)Ordered By: Marvin Serrano on 08-06-2024 Lymphocytes/100 WBC (Bld) Lymphocytes/100 leukocytes in Blood by Automated count . [facility] MCH Auto (RBC) [Entitic mass ]Ordered By: Marvin Serrano on 08-06-2024 MCH (RBC) [Entitic mass] MCH [Entitic mass] by Automated count Low 24.7-34.3 [facility] MCHC Auto (RBC) [Mass/Vol]Or dered By: Marvin Serrano on 08-06-2024 MCHC (RBC) [Mass/Vol] MCHC [Mass/volume] by Automated count Low 32.0-35.0 [facility] MCV Auto (RBC) [Entitic vol] Ordered By: Marvin Serrano on 08-06-2024 MCV (RBC) [Entitic vol] MCV [Entitic volume] by Automated count Low 80-100 [facility] Monocyte distribution width [Entitic volume] in Blood by AutomatedOrdered By: Marvin Serrano on 08-06-2024 Monocyte distribution width Auto (Bld) [Entitic vol] Monocyte distribution width [Entitic volume] in Blood by Automated 0.00-20.00 [facility] Monocytes Auto (Bld) [#/Vol] Ordered By: Marvin Serrano on 08-06-2024 Monocytes (Bld) [#/Vol] Automated blood monocyte count 0.0-0.8 [facility] Monocytes/100 WBC Auto (Bld) Ordered By: Marvin Serrano on 08-06-2024 Monocytes/100 WBC (Bld) Automated monocyte % . [facility] Mucus [Presence] in Urine by AutomatedOrdered By: Marvin Serrano on 08-06-2024 Mucus Auto Ql (U) Mucus [Presence] in Urine by Automated [facility] Neutrophils Auto (Bld) [#/Vo l]Ordered By: Marvin Serrano on 08-06-2024 Neutrophils (Bld) [#/Vol] Neutrophils [#/volume] in Blood by Automated count 1.8-7.7 [facility] Neutrophils/100 WBC Auto (Bl d)Ordered By: Marvin Serrano on 08-06-2024 Neutrophils/100 WBC (Bld) Automated neutrophil % . [facility] Nitrite Test strip Ql (U)Ord ered By: Marvin Serrano on 08-06-2024 Nitrite Ql (U) Nitrite [Presence] i n Urine by Test strip Negative [facility] No Panel InformationOrdered By: Marvin Serrano on 08-06-2024 Estimated GFR (CKD-EPI) > 60.0 mL/Min [facility] Pharmacy Creatinine Clearance (Chem 119.09 [facility] Nucleated erythrocytes [Pres ence] in Blood by Automated countOrdered By: Marvin Serrano on 08-06-2024 Nucleated RBC Auto Ql (Bld) Nucleated erythrocytes [Presence] in Blood by Automated count 0-0.5 [facility] Opiates [Presence] in Urine by Screen methodOrdered By: Marvin Serrano on 08-06-2024 Opiates Screen Ql (U) Opiates [Presence] in Urine by Screen method Negative [facility] Phencyclidine Screen Ql (U)O rdered By: Marvin Serrano on 08-06-2024 Phencyclidine Ql (U) Phencyclidine [Pres ence] in Urine by Screen method Negative [facility] Platelet mean volume Auto (B ld) [Entitic vol]Ordered By: Marvin Serrano on 08-06-2024 Platelet mean volume (Bld) [Entitic vol] Platelet mean volume [Entitic volume] in Blood by Automated count 6.3-10.7 [facility] Platelets Auto (Bld) [#/Vol] Ordered By: Marvin Serrano on 08-06-2024 Platelets (Bld) [#/Vol] Platelets [#/volume] in Blood by Automated count 150-450 [facility] Potassium [Moles/volume] in Serum or PlasmaOrdered By: Marvin Serrano on 08-06-2024 Potassium [Moles/Vol] Potassium [Moles/v olume] in Serum or Plasma 3.5-5.1 [facility] Protein Test strip (U) [Mass /Vol]Ordered By: Marvin Serrano on 08-06-2024 Protein (U) [Mass/Vol] Protein [Mass/vol ume] in Urine by Test strip Negative [facility] Protein [Mass/volume] in Ser um or PlasmaOrdered By: Marvin Serrano on 08-06-2024 Protein [Mass/Vol] Protein [Mass/volume ] in Serum or Plasma 6.4-8.9 [facility] RBC Auto (Bld) [#/Vol]Ordere d By: Marvin Serrano on 08-06-2024 RBC (Bld) [#/Vol] Erythrocytes [#/volu me] in Blood by Automated count 3.60-5.00 [facility] Serum or plasma albumin/glob ulin mass ratioOrdered By: Marvin Serrano on 08-06-2024 Albumin/Globulin [Mass ratio] Serum or plasma albumin/globulin mass ratio [facility] [facility] Serum or plasma anion gap de terminationOrdered By: Marvin Serrano on 08-06-2024 Anion gap [Moles/Vol] Serum or plasma an ion gap determination 6.0-15.0 [facility] Sodium [Moles/volume] in Ser um or PlasmaOrdered By: Marvin Serrano on 08-06-2024 Sodium [Moles/Vol] Sodium [Moles/volume ] in Serum or Plasma 136-145 [facility] Specific gravity Test strip (U) [Rel density]Ordered By: Marvin Serrano on 08-06-2024 Specific gravity (U) [Rel density] Specific gravity of Urine by Test strip 1.001-1.03 0 [facility] Thyroid Stim Hormone w/Rflxo n 08-06-2024 Thyroid Stim Hormone w/Rflx 1.33 u[iU]/mL Normal 0.45-5.33 [facility] Comment on above: Order Comment: Comme nt use ER blood Performed By: #### C OVID19 FLU RSV, CEPHEID NEG #### [facility] [address] Urea nitrogen [Mass/volume] in Serum or PlasmaOrdered By: Marvin Serrano on 08-06-2024 Urea nitrogen [Mass/Vol] Urea nitrogen [Mass/volume] in Serum or Plasma 7- [facility] Urobilinogen Test strip (U) [Mass/Vol]Ordered By: Marvin Serrano on 08-06-2024 Urobilinogen (U) [Mass/Vol] Urobilinogen [Mass/volume] in Urine by Test strip Normal [facility] Vitamin D 25 Hydroxy Totalon 08-06-2024 Vitamin D 25 Hydroxy Total 9.7 ng/mL Low 30-100 [facility] Comment on above: Order Comment: Comme nt use ER blood Result Comment: ALEXIA MIN D STATUS 25(OH)VITAMIN D RANGE (ng/mL) Deficient <20 Insufficient 20 to <30 Sufficient 30 to 100 Reference: Pam MF,Abelardo NC, Cj GARZA, et al. Evaluation,treatment, and prevention of vitamin D deficiency; an Endocrine Society clinical practice guideline. JCEM. 2010; 96(7):1911-30. PERFORMED BY: [place] [address] PATHOLOGIST CORRECTIONAL MANAGER TRISTEN MOSELEY M.D. Performed By: #### C OVID19 FLU RSV, CEPHEID NEG #### [facility] [address] [place] [id number] [facility] WBC Auto (Bld) [#/Vol]Ordere d By: Marvin Serrano on 08-06-2024 WBC (Bld) [#/Vol] Leukocytes [#/volume ] in Blood by Automated count 3.8-11.6 [facility] pH Test strip (U)Ordered By: Marvin Serrano on 08-06-2024 pH (U) pH of Urine by Test strip 5.0-9.0 [facility] PREG QUANT HCGon 08-04- 024 HCG QUANTITATIVE 4763 mIU/mL [facility] Comment on above: 5-50 0.2-1 WEEK 50-500 1-2 WEEKS 100-5,000 2-3 WEEKS 500-10,000 3-4 WEEKS 1,000-50,000 4-5 WEEKS 10,000-100,000 5-6 WEEKS 15,000-200,000 6-8 WEEKS 10,000-100,000 [facility] 024 HCG QUANTITATIVE 2355 mIU/mL [facility] Comment on above: 5-50 0.2-1 WEEK 50-500 1-2 WEEKS 100-5,000 2-3 WEEKS 500-10,000 3-4 WEEKS 1,000-50,000 4-5 WEEKS 10,000-100,000 5-6 WEEKS 15,000-200,000 6-8 WEEKS 10,000-100,000 2[facility] Alanine aminotransferase [En zymatic activity/volume] in Serum or PlasmaOrdered By: Sarah Dodd on 07-14-2024 ALT [Catalytic activity/Vol] 9 U/L Normal [facility] Comment on above: Performed By: #### E NATALIE, CBC, CMP #### [address] ALT [Catalytic activity/Vol] Alanine aminotransferase [Enzymatic activity/volume] in Serum or Plasma [facility] Albumin [Mass/volume] in Ser um or Plasma by Bromocresol green (BCG) dye binding methoOrdered By: Sarah Dodd on 07-14-2024 Albumin BCG dye [Mass/Vol] 4.1 g/dL 3.5-5.7 [facility] Albumin BCG dye [Mass/Vol] Albumin [Mass/volume] in Serum or Plasma by Bromocresol green (BCG) dye binding metho 3.5-5.7 [facility] Alkaline phosphatase [Enzyma tic activity/volume] in Serum or PlasmaOrdered By: Sarah Dodd on 07-14-2024 ALP [Catalytic activity/Vol] 48 U/L Normal [facility] Comment on above: Performed By: #### E NATALIE, CBC, CMP #### [facility] [address] ALP [Catalytic activity/Vol] Alkaline phosphatase [Enzymatic activity/volume] in Serum or Plasma [facility] Appearance of UrineOrdered B y: Sarah Dodd on 07-14-2024 Appearance (U) Urine appearance Clear [facility] Aspartate aminotransferase [ Enzymatic activity/volume] in Serum or PlasmaOrdered By: Sarah Dodd on 07-14-2024 AST [Catalytic activity/Vol] 14 U/L Normal [facility] Comment on above: Performed By: #### E NATALIE, CBC, CMP #### [facility] [address] [place] [address] AST [Catalytic activity/Vol] Aspartate aminotransferase [Enzymatic activity/volume] in Serum or Plasma [facility] Automated basophil %Ordered By: Sarah Dodd on 07-14-2024 Basophils/100 WBC (Bld) 0.4 % Normal . [facility] Comment on above: Performed By: #### E NATALIE, CBC, CMP #### [facility] [address] Automated basophil countOrde red By: Sarah Dodd on 07-14-2024 Basophils (Bld) [#/Vol] 0.0 10*3/uL Normal 0.0-0.2 [facility] Comment on above: Result Comment: PERF ORMED BY: [place] [address] PATHOLOGIST CORRECTIONAL MANAGER CLAU ZAVALA M.D. Performed By: #### E NATALIE, CBC, CMP #### [facility] [address] [place] [address] Automated blood monocyte cou ntOrdered By: Sarah Dodd on 07-14-2024 Monocytes (Bld) [#/Vol] 0.5 10*3/uL Normal 0.0-0.8 [facility] Comment on above: Performed By: #### E NATALIE, CBC, CMP #### [address] Automated eosinophil %Ordere d By: Sarah Dodd on 07-14-2024 Eosinophils/100 WBC (Bld) 0.6 % Normal . [facility] Comment on above: Performed By: #### E NATALIE, CBC, CMP #### [address] Automated eosinophil countOr dered By: Sarah Dodd on 07-14-2024 Eosinophils (Bld) [#/Vol] 0.0 10*3/uL Normal 0.0-0.45 [facility] Comment on above: Performed By: #### E NATALIE, CBC, CMP #### [address] Automated monocyte %Ordered By: Sarah Dodd on 07-14-2024 Monocytes/100 WBC (Bld) 12.3 % Normal . [facility] Comment on above: Performed By: #### E NATALIE, CBC, CMP #### [address] Automated neutrophil %Ordere d By: Sarah Dodd on 07-14-2024 Neutrophils/100 WBC (Bld) 63.5 % Normal . [facility] Comment on above: Performed By: #### E NATALIE, CBC, CMP #### [address] Bacteria [Presence] in Urine by AutomatedOrdered By: Sarah Dodd on 07-14-2024 Bacteria Auto Ql (U) Rare [HPF] None Seen [facility] Bacteria Auto Ql (U) Bacteria [Presence] in Urine by Automated None Seen [facility] Basic Metabolic Panelon 06-18 Creatinine Clr Calc Pharmacy 107.14 Normal [facility] Comment on above: Performed By: #### E NATALIE, CBC, CMP #### [address] GFR/1.73 sq M.predicted MDRD (S/P/Bld) [Vol rate/Area] mL/min/{1.73_m2} Normal [facility] Comment on above: Performed By: #### E NATALIE, CBC, CMP #### [facility] [address] Basophils Auto (Bld) [#/Vol] Ordered By: Sarah Dodd on 07-14-2024 Basophils (Bld) [#/Vol] Automated basophil count 0.0-0.2 [facility] Basophils/100 WBC Auto (Bld) Ordered By: Sarah Dodd on 07-14-2024 Basophils/100 WBC (Bld) Automated basophil % . [facility] Bilirubin Test strip Ql (U)O rdered By: Sarah Dodd on 07-14-2024 Bilirubin Ql (U) Negative Negative [facility] Bilirubin Ql (U) Bilirubin.total [Pre sence] in Urine by Test strip Negative [facility] Bilirubin.direct [Mass/volum e] in Serum or PlasmaOrdered By: Sarah Dodd on 07-14-2024 Bilirubin.direct [Mass/Vol] 0.10 mg/dL 0.03-0.18 [facility] Bilirubin.direct [Mass/Vol] Bilirubin.direct [Mass/volume] in Serum or Plasma 0.03-0.18 [facility] Bilirubin.total [Mass/volume ] in Serum or PlasmaOrdered By: Sarah Dodd on 07-14-2024 Bilirubin [Mass/Vol] 0.4 mg/dL Normal 0.3-1.0 [facility] Comment on above: Performed By: #### E NATALIE, CBC, CMP #### [facility] [address] [place] [address] Bilirubin [Mass/Vol] Bilirubin.total [Mass/volume] in Serum or Plasma 0.3-1.0 [facility] COVID CepheidOrdered By: Macarena Dodd on 07-14-2024 SARS-CoV-2 (COVID-19) Ab IA Ql Negative Negative [facility] Comment on above: This is a duplicate CepCreww Xpert Xpress CoV-2/Flu/RSV Plus RNA by RT-PCR result to be used for statistical tracking purpose only. SARS-CoV-2 (COVID-19) RNA HIRAM+probe Ql (Unsp spec) [facility] COVID Cepheid NegativeOrdere d By: Sarah Dodd on 07-14-2024 SARS-CoV-2 (COVID-19) Ab IA Ql COVID Cepheid Negative [facility] Comment on above: This is a duplicate [...] or Cepheid Disclaimer revoked sooner. PERFORMED BY: [place] [address] PATHOLOGIST CORRECTIONAL MANAGER CLAU ZAVALA M.D. Normal [facility] Comment on above: Performed By: #### C OVID19 FLU RSV, CEPHEID NEG #### [address] abdomen pelvis w conon CT abdomen pelvis w con [facility] [address] [place] [address] CT Scan Report Signed Patient: Leandra Fonseca MR#: [id number] 1238 : 1990 Acct:[id number] Age/Sex: 34 / F ADM Date: 07/14/24 Loc: ER Room: Type: [facility] ER Attending Dr: Copies to: DO Ltey Fuller DO, JOSE Ordering Provider: Lety Dougherty [...] Mancera Jr., D.O.07/14/2024 2:43 PM Dictation Location: [place] [address] Transcribed By: [facility] 07/14/24 1443 Dictated By: Leroy Mancera Jr, DO 07/14/24 1438 Signed By: 07/14/24 1443 Normal [facility] Calcium [Mass/volume] in Ser um or PlasmaOrdered By: Sarah Dodd on 07-14-2024 Calcium [Mass/Vol] 8.9 mg/dL Normal 8.6-10.[address] [facility] Comment on above: Performed By: #### E NATALIE, CBC, CMP #### [facility] [address] Calcium [Mass/Vol] Calcium [Mass/volume ] in Serum or Plasma 8.6-10.3 [facility] Carbon dioxide, total [Moles /volume] in Serum or PlasmaOrdered By: Sarah Dodd on 07-14-2024 CO2 [Moles/Vol] 25.2 mmol/L Normal 21.0-31.0 [facility] Comment on above: Performed By: #### E NATALIE, CBC, CMP #### [facility] [address] [place] [id number] [place] CO2 [Moles/Vol] Carbon dioxide, tota l [Moles/volume] in Serum or Plasma 21.0-31.0 [facility] Cepheid COVID PCR Negativeon 07-14-2024 SARS-CoV-2 (COVID-19) RNA HIRAM+probe Ql (Unsp spec) Negative Normal Negative [facility] Comment on above: Result Comment: This is a duplicate CepKanchufangid Xpert Xpress CoV-2/Flu/RSV Plus RNA by RT-PCR result to be used for statistical tracking purpose only. PERFORMED BY: [place] [address] PATHOLOGIST CORRECTIONAL MANAGER CLAU ZAVALA M.D. Performed By: #### C OVID19 FLU RSV, CEPHEID NEG #### [place] [address] [place] Chloride [Moles/volume] in S salas or PlasmaOrdered By: Sarah Dodd on 07-14-2024 Chloride [Moles/Vol] 105 mmol/L Normal 98-107 [facility] Comment on above: Performed By: #### E NATALIE, CBC, CMP #### [place] [address] [place] Chloride [Moles/Vol] Chloride [Moles/vol ume] in Serum or Plasma 98-107 [facility] Color Auto (U)Ordered By: Godfrey Dodd on 07-14-2024 Color (U) Color of Urine by Auto Yellow Fi [facility] Color of Urine by AutoOrdere d By: Sarah Dodd on 07-14-2024 Color (U) Yellow Normal Yellow [facility] Comment on above: Order Comment: Name Collection Type:: Clean-Voided Midstream Performed By: #### E NATALIE, CBC, CMP #### [address] Complete Blood Count Auto Di ffon 07-14-2024 Mean Corpuscular HGB Conc 32.2 g/dL Normal 32.0-35.0 [facility] Comment on above: Performed By: #### E NATALIE, CBC, CMP #### [address] Monocytes/100 WBC (Bld) 20.43 % High 0.00-20.00 [facility] Comment on above: Result Comment: For adults in ED, MDW > 20.0 may be associated with a higher risk of sepsis during the first 12 hrs of hospital admission Performed By: #### E NATALIE, CBC, CMP #### [address] NRBC% 0.1 /100{WBC} Normal 0-0.5 [facility] Comment on above: Performed By: #### E NATALIE, CBC, CMP #### [address] Creatinine [Mass/volume] in Serum or PlasmaOrdered By: Sarah Dodd on 07-14-2024 Creatinine [Mass/Vol] 0.71 mg/dL Normal 0.60-1.20 [facility] Comment on above: Performed By: #### E NATALIE, CBC, CMP #### [address] Creatinine [Mass/Vol] Creatinine [Mass/v olume] in Serum or Plasma 0.60-1.20 [facility] Dipstick and Microscopicon 1 Bacteria,Urine Rare Normal None Seen [facility] Comment on above: Order Comment: Name Collection Type:: Clean-Voided Midstream Performed By: #### E NATALIE, CBC, CMP #### [address] Bilirubin,Urine Negative Normal Negative [facility] Comment on above: Order Comment: Name Collection Type:: Clean-Voided Midstream Performed By: #### E NATALIE, CBC, CMP #### [address] Glucose Ql (U) Normal Normal Normal [facility] Comment on above: Order Comment: Name Collection Type:: Clean-Voided Midstream Performed By: #### E NATALIE, CBC, CMP #### [address] Hyaline Casts,Urine None Normal 0-8 [facility] Comment on above: Order Comment: Name Collection Type:: Clean-Voided Midstream Performed By: #### E NATALIE, CBC, CMP #### [address] Mucus,Urine 2+ Critically abnormal [facility] Comment on above: Order Comment: Name Collection Type:: Clean-Voided Midstream Performed By: #### E NATALIE, CBC, CMP #### [facility] [address] [place] [address] [place] Nitrite,Urine Negative Normal Negative [facility] Comment on above: Order Comment: Name Collection Type:: Clean-Voided Midstream Performed By: #### E NATALIE, CBC, CMP #### [facility] [address] [place] [address] Occult Blood,Urine 1+ High Negative [facility] Comment on above: Order Comment: Name Collection Type:: Clean-Voided Midstream Performed By: #### E NATALIE, CBC, CMP #### [address] RBC,Urine 20-49 High 0-4 [facility] Comment on above: Order Comment: Name Collection Type:: Clean-Voided Midstream Performed By: #### E NATALIE, CBC, CMP #### [facility] [address] [place] [address] [place] Specificy Morrison,Urine 1.030 Normal 1.001-1.03 0 [facility] Comment on above: Order Comment: Name Collection Type:: Clean-Voided Midstream Performed By: #### E NATALIE, CBC, CMP #### [facility] [address] [place] [address] [place] Squamous Epithelial Cell,Urine 5-9 High 0-2 [facility] Comment on above: Order Comment: Name Collection Type:: Clean-Voided Midstream Performed By: #### E NATALIE, CBC, CMP #### [facility] [address] [place] [address] [place] Urobilinogen,Urine 3 mg/dL High Normal [facility] Comment on above: Order Comment: Name Collection Type:: Clean-Voided Midstream Performed By: #### E NATALIE, CBC, CMP #### [facility] [address] [place] [address] [place] WBC,Urine 5-9 High 0-4 [facility] Comment on above: Order Comment: Name Collection Type:: Clean-Voided Midstream Performed By: #### E NATALIE, CBC, CMP #### [facility] [address] ECG 12 lead ECGon 07-14-2024 ECG 12 lead ECG [facility] [address] [place] [address] Electrocardiograph Report Signed Patient: Leandra Fonseca MR#: [id number] 1238 : 1990 Acct:[id number] Age/Sex: 34 / F ADM Date: 07/14/24 Loc: ER Room: Type: [facility] ER Attending Dr: Ordering Provider: Sarah Dodd [...] 423 ms Normal sinus rhythm Confirmed by Glenryo Weldon DO ([id number]) on 07/14/2024 8:07:49 PM Referred By: Electronically Signed By: Glenroy Weldon DO Transcribed By: MUS Signed By Glenroy Weldon DO 2006 Normal [facility] Eosinophils Auto (Bld) [#/Vo l]Ordered By: Sarah Dodd on 07-14-2024 Eosinophils (Bld) [#/Vol] Automated eosinophil count 0.0-0.45 [facility] Eosinophils/100 WBC Auto (Bl d)Ordered By: Sarah Dodd on 07-14-2024 Eosinophils/100 WBC (Bld) Automated eosinophil % . [facility] Epithelial cells.squamous [# /area] in Urine sediment by Automated countOrdered By: Sarah Dodd on 07-14-2024 Epithelial cells.squamous Auto (Urine sed) [#/Area] 5-9 [HPF] High 0-2 [facility] Epithelial cells.squamous Auto (Urine sed) [#/Area] Epithelial cells.squamous [#/area] in Urine sediment by Automated count High 0-2 [facility] Erythrocyte distribution wid th Auto (RBC) [Ratio]Ordered By: Sarah Dodd on 07-14-2024 Erythrocyte distribution width (RBC) [Ratio] Erythrocyte distribution width [Ratio] by Automated count 11.9-15.3 [facility] Erythrocyte distribution wid th [Ratio] by Automated countOrdered By: Sarah Dodd on 07-14-2024 Erythrocyte distribution width (RBC) [Ratio] 13.7 % Normal 11.9-15.3 [facility] Comment on above: Performed By: #### E NATALIE, CBC, CMP #### [facility] [address] Erythrocytes [#/area] in Uri ne sediment by Automated countOrdered By: Sarah Dodd on 07-14-2024 RBC Auto (Urine sed) [#/Area] 20-49 [HPF] High 0-4 [facility] RBC Auto (Urine sed) [#/Area] Erythrocytes [#/area] in Urine sediment by Automated count High 0-4 [facility] Erythrocytes [#/volume] in B lood by Automated countOrdered By: Sarah Dodd on 07-14-2024 RBC (Bld) [#/Vol] 4.57 10*6/uL Normal 3.60-5.00 [facility] Comment on above: Performed By: #### E NATALIE, CBC, CMP #### [facility] [address] [place] [address] Globulin Calc (S) [Mass/Vol] Ordered By: Sarah Dodd on 07-14-2024 Globulin (S) [Mass/Vol] Serum globulin measurement by calculation (mass/volume) [facility] Glucose [Mass/volume] in Ser um or PlasmaOrdered By: Sarah Dodd on 07-14-2024 Glucose [Mass/Vol] 88 mg/dL Normal 70-[address] [facility] Comment on above: ADA recommended refe rence rangeRandom Glucose Reference Range is dependent on time and content of last meal. Glucose of more than 200 mg/dL in a nonstressed, ambulatory subject supports the diagnosis of Diabetes Mellitus. Result Comment: [place] om Glucose Reference Range is dependent on time and content of last meal. Glucose of more than 200 mg/dL in a nonstressed, ambulatory subject supports the diagnosis of Diabetes Mellitus. ADA recommended reference range Performed By: #### E NATALIE, CBC, CMP #### [facility] [address] Glucose [Mass/Vol] Glucose [Mass/volume ] in Serum or Plasma 70-100 [facility] Comment on above: ADA recommended refe rence rangeRandom Glucose Reference Range is dependent on time and content of last meal. Glucose of more than 200 mg/dL in a nonstressed, ambulatory subject supports the diagnosis of Diabetes Mellitus. Glucose [Mass/volume] in Uri ne by Test stripOrdered By: Sarah Dodd on 07-14-2024 Glucose Test strip (U) [Mass/Vol] Normal mg/dL Normal [facility] Glucose Test strip (U) [Mass/Vol] Glucose [Mass/volume] in Urine by Test strip Normal [facility] HCG ( test) IA.rapi d Ql (U)Ordered By: ROMMEL BRIGGS on 07-14-2024 HCG ( test) Ql (U) Negative [facility] HCG ( test) Ql (U) Urine human chorionic gonadotropin (hCG) detection by immunoassay [facility] HCG,Urineon 07-14-2024 Beta HCG ( test) Ql (U) Negative Normal [facility] Comment on above: Order Comment: Name Collection Type:: Clean-Voided Midstream Result Comment: PERF ORMED BY: [place] [address] PATHOLOGIST CORRECTIONAL MANAGER CLAU ZAVALA M.D. Performed By: #### E NATALIE, CBC, CMP #### [facility] [address] [place] [address] Hematocrit Auto (Bld) [Volum e fraction]Ordered By: Sarah Dodd on 07-14-2024 Hematocrit (Bld) [Volume fraction] Hematocrit [Volume Fraction] of Blood by Automated count Low 34.0-46.4 [facility] Hematocrit [Volume Fraction] of Blood by Automated countOrdered By: Sarah Dodd on 07-14-2024 Hematocrit (Bld) [Volume fraction] 33.4 % Low 34.0-46.4 [facility] Comment on above: Performed By: #### E NATALIE, CBC, CMP #### [facility] [address] Hemoglobin Test strip Ql (U) Ordered By: Sarah Dodd on 07-14-2024 Hemoglobin Ql (U) 1+ High Negative [facility] Hemoglobin Ql (U) Hemoglobin [Presence ] in Urine by Test strip High Negative [facility] Hemoglobin [Mass/volume] in BloodOrdered By: Sarah Dodd on 07-14-2024 Hemoglobin (Bld) [Mass/Vol] 10.8 g/dL Low 11.8-15.4 [facility] Comment on above: Performed By: #### E NATALIE, CBC, CMP #### [address] Hemoglobin (Bld) [Mass/Vol] Hemoglobin [Mass/volume] in Blood Low 11.8-15.4 [facility] Hepatic Panelon 07-14-2024 Albumin [Mass/Vol] 4.1 g/dL Normal 3.5-5.7 [facility] Comment on above: Performed By: #### E NATALIE, CBC, CMP #### [address] Bilirubin,Indirect 0.3 mg/dL Normal [facility] Comment on above: Performed By: #### E NATALIE, CBC, CMP #### [facility] [address] [place] [address] Bilirubin.indirect [Mass/Vol] 0.10 mg/dL Normal 0.03-0.18 [facility] Comment on above: Performed By: #### E NATALIE, CBC, CMP #### [facility] [address] [place] [address] Hyaline casts [#/area] in Ur ine sediment by Automated countOrdered By: Sarah Dodd on 07-14-2024 Hyaline casts Auto (Urine sed) [#/Area] None [LPF] 0-8 [facility] Hyaline casts Auto (Urine sed) [#/Area] Hyaline casts [#/area] in Urine sediment by Automated count 0-8 [facility] Ketones Test strip Ql (U)Ord ered By: Sarah Dodd on 07-14-2024 Ketones Ql (U) Ketones [Presence] i n Urine by Test strip High Negative [facility] Ketones [Presence] in Urine by Test stripOrdered By: Sarah Dodd on 07-14-2024 Ketones Ql (U) 2+ High Negative [facility] Comment on above: Order Comment: Name Collection Type:: Clean-Voided Midstream Performed By: #### E NATALIE, CBC, CMP #### [facility] [address] Leukocyte esterase [Presence ] in Urine by Test stripOrdered By: Sarah Dodd on 07-14-2024 Leukocyte esterase Test strip Ql (U) Negative Normal Negative [facility] Comment on above: Order Comment: Name Collection Type:: Clean-Voided Midstream Performed By: #### E NATALIE, CBC, CMP #### [facility] [address] Leukocyte esterase Test strip Ql (U) Leukocyte esterase [Presence] in Urine by Test strip Negative [facility] Leukocytes [#/area] in Urine sediment by Automated countOrdered By: Sarah Dodd on 07-14-2024 WBC Auto (Urine sed) [#/Area] 5-9 [HPF] High 0-4 [facility] WBC Auto (Urine sed) [#/Area] Leukocytes [#/area] in Urine sediment by Automated count High 0-4 [facility] Leukocytes [#/volume] correc delmer for nucleated erythrocytes in Blood by Automated counOrdered By: Sarah Dodd on 07-14-2024 WBC corrected for nucl RBC Auto (Bld) [#/Vol] 4.3 10*3/uL 3.8-11.6 [facility] WBC corrected for nucl RBC Auto (Bld) [#/Vol] Leukocytes [#/volume] corrected for nucleated erythrocytes in Blood by Automated coun 3.8-11.6 [facility] Leukocytes [#/volume] in Blo od by Automated countOrdered By: Sarah Dodd on 07-14-2024 WBC (Bld) [#/Vol] 4.3 10*3/uL Normal 3.8-11.[address] [facility] Comment on above: Performed By: #### E NATALIE, CBC, CMP #### [place] [address] [place] Lipase [Enzymatic activity/v olume] in Serum or PlasmaOrdered By: Sarah Dodd on 07-14-2024 Lipase [Catalytic activity/Vol] 45.0 U/L Normal 11.0-82.0 [facility] Comment on above: Result Comment: PERF ORMED BY: [place] [address] PATHOLOGIST CORRECTIONAL MANAGER CLAU ZAVALA M.D. Performed By: #### E NATALIE, CBC, CMP #### [place] [address] [place] Lipase [Catalytic activity/Vol] Lipase [Enzymatic activity/volume] in Serum or Plasma 11.0-82.0 [facility] Lymphocytes Auto (Bld) [#/Vo l]Ordered By: Sarah Dodd on 07-14-2024 Lymphocytes (Bld) [#/Vol] Lymphocytes [#/volume] in Blood by Automated count 1.00-4.8 [facility] Lymphocytes [#/volume] in Bl ood by Automated countOrdered By: Sarah Dodd on 07-14-2024 Lymphocytes (Bld) [#/Vol] 1.0 10*3/uL Normal 1.00-4.8 [facility] Comment on above: Performed By: #### E NATALIE, CBC, CMP #### [facility] [address] [place] [address] [place] Lymphocytes/100 WBC Auto (Bl d)Ordered By: Sarah Dodd on 07-14-2024 Lymphocytes/100 WBC (Bld) Lymphocytes/100 leukocytes in Blood by Automated count . [facility] Lymphocytes/100 leukocytes i n Blood by Automated countOrdered By: Sarah Dodd on 07-14-2024 Lymphocytes/100 WBC (Bld) 23.2 % Normal . [facility] Comment on above: Performed By: #### E NATALIE, CBC, CMP #### [facility] [address] MCH Auto (RBC) [Entitic mass ]Ordered By: Sarah Dodd on 07-14-2024 MCH (RBC) [Entitic mass] MCH [Entitic mass] by Automated count Low 24.7-34.3 [facility] MCH [Entitic mass] by Automa delmer countOrdered By: Sarah Dodd on 07-14-2024 MCH (RBC) [Entitic mass] 23.5 pg Low 24.7-34.3 [facility] Comment on above: Performed By: #### E NATALIE, CBC, CMP #### [facility] [address] MCHC Auto (RBC) [Mass/Vol]Or dered By: Sarah Dodd on 07-14-2024 MCHC (RBC) [Mass/Vol] 32.2 g/dL 32.0-35.0 [facility] MCHC (RBC) [Mass/Vol] MCHC [Mass/volume] by Automated count 32.0-35.0 [facility] MCV Auto (RBC) [Entitic vol] Ordered By: Sarah Dodd on 07-14-2024 MCV (RBC) [Entitic vol] MCV [Entitic volume] by Automated count Low 80-100 [facility] MCV [Entitic volume] by Auto mated countOrdered By: Sarah Dodd on 07-14-2024 MCV (RBC) [Entitic vol] 73.1 fL Low 80-100 [facility] Comment on above: Performed By: #### E NATALIE, CBC, CMP #### [facility] [address] Monocyte distribution width [Entitic volume] in Blood by AutomatedOrdered By: Sarah Dodd on 07-14-2024 Monocyte distribution width Auto (Bld) [Entitic vol] 20.43 % High 0.00-20.00 [facility] Comment on above: For adults in ED, MD W > 20.0 may be associated with a higher risk of sepsis during the first 12 hrs of hospital admission Monocyte distribution width Auto (Bld) [Entitic vol] Monocyte distribution width [Entitic volume] in Blood by Automated High 0.00-20.00 [facility] Comment on above: For adults in ED, MD W > 20.0 may be associated with a higher risk of sepsis during the first 12 hrs of hospital admission Monocytes Auto (Bld) [#/Vol] Ordered By: Sarah Dodd on 07-14-2024 Monocytes (Bld) [#/Vol] Automated blood monocyte count 0.0-0.8 [facility] Monocytes/100 WBC Auto (Bld) Ordered By: Sarah Dodd on 07-14-2024 Monocytes/100 WBC (Bld) Automated monocyte % . [facility] Mucus [Presence] in Urine by AutomatedOrdered By: Sarah Dodd on 07-14-2024 Mucus Auto Ql (U) 2+ [LPF] Abnormal [facility] Mucus Auto Ql (U) Mucus [Presence] in Urine by Automated Abnormal [facility] Neutrophils Auto (Bld) [#/Vo l]Ordered By: Sarah Dodd on 07-14-2024 Neutrophils (Bld) [#/Vol] Neutrophils [#/volume] in Blood by Automated count 1.8-7.7 [facility] Neutrophils [#/volume] in Bl ood by Automated countOrdered By: Sarah Dodd on 07-14-2024 Neutrophils (Bld) [#/Vol] 2.7 10*3/uL Normal 1.8-7.7 [facility] Comment on above: Performed By: #### E NATALIE, CBC, CMP #### [facility] [address] Neutrophils/100 WBC Auto (Bl d)Ordered By: Sarah Dodd on 07-14-2024 Neutrophils/100 WBC (Bld) Automated neutrophil % . [facility] Nitrite Test strip Ql (U)Ord ered By: Sarah Dodd on 07-14-2024 Nitrite Ql (U) Negative Negative [facility] Nitrite Ql (U) Nitrite [Presence] i n Urine by Test strip Negative [facility] No Panel InformationOrdered By: Sarah Dodd on 07-14-2024 Estimated GFR (CKD-EPI) > 60.0 mL/Min [facility] Creatinine Clearance (Chem 107.14 [facility] Nucleated erythrocytes [Pres ence] in Blood by Automated countOrdered By: Sarah Dodd on 07-14-2024 Nucleated RBC Auto Ql (Bld) 0.1 /100{WBC} 0-0.5 [facility] Nucleated RBC Auto Ql (Bld) Nucleated erythrocytes [Presence] in Blood by Automated count 0-0.5 [facility] Platelet mean volume Auto (B ld) [Entitic vol]Ordered By: Sarah Dodd on 07-14-2024 Platelet mean volume (Bld) [Entitic vol] Platelet mean volume [Entitic volume] in Blood by Automated count 6.3-10.7 [facility] Platelet mean volume [Entiti c volume] in Blood by Automated countOrdered By: Sarah Dodd on 07-14-2024 Platelet mean volume (Bld) [Entitic vol] 9.1 fL Normal 6.3-10.7 [facility] Comment on above: Performed By: #### E NATALIE, CBC, CMP #### [facility] [address] [place] [address] [place] Platelets Auto (Bld) [#/Vol] Ordered By: Sarah Dodd on 07-14-2024 Platelets (Bld) [#/Vol] Platelets [#/volume] in Blood by Automated count 150-450 [facility] Platelets [#/volume] in Bloo d by Automated countOrdered By: Sarah Dodd on 07-14-2024 Platelets (Bld) [#/Vol] 168 10*3/uL Normal 150-450 [facility] Comment on above: Performed By: #### E NATALIE, CBC, CMP #### [facility] [address] [place] [address] [place] Potassium [Moles/volume] in Serum or PlasmaOrdered By: Sarah Dodd on 07-14-2024 Potassium [Moles/Vol] 3.3 mmol/L Low 3.5-5.1 [facility] Comment on above: Performed By: #### E NATALIE, CBC, CMP #### [facility] [address] [place] [address] [place] Potassium [Moles/Vol] Potassium [Moles/v olume] in Serum or Plasma Low 3.5-5.1 [facility] Protein Test strip (U) [Mass /Vol]Ordered By: Sarah Dodd on 07-14-2024 Protein (U) [Mass/Vol] Protein [Mass/vol ume] in Urine by Test strip High Negative [facility] Protein [Mass/volume] in Ser um or PlasmaOrdered By: Sarah Dodd on 07-14-2024 Protein [Mass/Vol] 7.2 g/dL Normal 6.4-8.[address] [facility] Comment on above: Performed By: #### E NATALIE, CBC, CMP #### [facility] [address] Protein [Mass/Vol] Protein [Mass/volume ] in Serum or Plasma 6.4-8.9 [facility] Protein [Mass/volume] in Uri ne by Test stripOrdered By: Sarah Dodd on 07-14-2024 Protein (U) [Mass/Vol] 20 mg/dL High Negative [facility] Comment on above: Order Comment: Name Collection Type:: Clean-Voided Midstream Performed By: #### E NATALIE, CBC, CMP #### [facility] [address] RBC Auto (Bld) [#/Vol]Ordere d By: Sarah Dodd on 07-14-2024 RBC (Bld) [#/Vol] Erythrocytes [#/volu me] in Blood by Automated count 3.60-5.00 [facility] Respiratory specimen influen za A virus, influenza B virus, respiratory syncytical virOrdered By: Sarah Dodd on 07-14-2024 SARS-CoV-2 (COVID-19) RNA HIRAM+probe Ql (Unsp spec) Respiratory specimen influenza A virus, influenza B virus, respiratory syncytical vir [facility] Serum globulin measurement b y calculation (mass/volume)Ordered By: Sarah Dodd on 07-14-2024 Globulin (S) [Mass/Vol] 3.1 g/dL Normal [facility] Comment on above: Performed By: #### E NATALIE, CBC, CMP #### [facility] [address] Serum or plasma albumin/glob ulin mass ratioOrdered By: Sarah Dodd on 07-14-2024 Albumin/Globulin [Mass ratio] 1.3 {ratio} Normal [facility] Comment on above: Performed By: #### E NATALIE, CBC, CMP #### [facility] [address] Albumin/Globulin [Mass ratio] Serum or plasma albumin/globulin mass ratio [facility] Serum or plasma anion gap de terminationOrdered By: Sarah Dodd on 07-14-2024 Anion gap [Moles/Vol] 11.1 mmol/L Normal 6.0-15.0 [facility] Comment on above: Performed By: #### E NATALIE CBC, CMP #### [facility] [address] [place] [address] Anion gap [Moles/Vol] Serum or plasma an ion gap determination 6.0-15.0 [facility] Serum or plasma non-glucuron idated bilirubin measurement (mass/volume)Ordered By: Sarah Dodd on 07-14-2024 Bilirubin.indirect [Mass/Vol] 0.3 mg/dL [facility] Bilirubin.indirect [Mass/Vol] Serum or plasma non-glucuronidated bilirubin measurement (mass/volume) [facility] Sodium [Moles/volume] in Ser um or PlasmaOrdered By: Sarah Dodd on 07-14-2024 Sodium [Moles/Vol] 138 mmol/L Normal 136-[address] [facility] Comment on above: Performed By: #### E NATALIE, CBC, CMP #### [facility] [address] Sodium [Moles/Vol] Sodium [Moles/volume ] in Serum or Plasma 136-145 [facility] Specific gravity Test strip (U) [Rel density]Ordered By: Sarah Dodd on 07-14-2024 Specific gravity (U) [Rel density] 1.030 1.001-1.03 0 [facility] Specific gravity (U) [Rel density] Specific gravity of Urine by Test strip 1.001-1.03 0 [facility] Urea nitrogen [Mass/volume] in Serum or PlasmaOrdered By: Sarah Dodd on 07-14-2024 Urea nitrogen [Mass/Vol] 9 mg/dL Normal 04-10 [facility] Comment on above: Performed By: #### E NATALIE, CBC, CMP #### [facility] [address] [place] [address] Urea nitrogen [Mass/Vol] Urea nitrogen [Mass/volume] in Serum or Plasma 04-10 [facility] Urine appearanceOrdered By: Sarah Dodd on 07-14-2024 Appearance (U) Clear Normal Clear [facility] Comment on above: Order Comment: Name Collection Type:: Clean-Voided Midstream Performed By: #### E WANDA ESTRADA, CMP #### [address] Urobilinogen Test strip (U) [Mass/Vol]Ordered By: Sarah Dodd on 07-14-2024 Urobilinogen (U) [Mass/Vol] 3 mg/dL [facility] Normal [facility] Urobilinogen (U) [Mass/Vol] Urobilinogen [Mass/volume] in Urine by Test strip [facility] WBC Auto (Bld) [#/Vol]Ordere d By: Sarah Dodd on 07-14-2024 WBC (Bld) [#/Vol] Leukocytes [#/volume ] in Blood by Automated count 3.8-11.6 [facility] pH Test strip (U)Ordered By: Sarah Dodd on 07-14-2024 pH (U) pH of Urine by Test strip 5.0-9.0 [facility] pH of Urine by Test stripOrd ered By: Sarah Dodd on 07-14-2024 pH (U) 6.0 [pH] Normal 5.0-9.0 [facility] Comment on above: Order Comment: Name Collection Type:: Clean-Voided Midstream Performed By: #### E NATALIE, CBC, CMP #### [place] [address] [place] CHLAMYDIA/GC BY PCRon 2023 CHLAMYDIA/GC BY PCR [...] are dependent on adequate specimen collection. Normal [facility] Comment on above: Performed By: #### C GS #### [facility] ([id number]) [address] [place] [address], [address] [place] [address] VAGINITIS PANEL PCRon 2023 VAGINITIS PANEL PCR [...] clinical presentation to determine patient diagnosis. Normal [facility] Comment on above: Performed By: #### V PPCR #### [facility] ([id number]) [address] [place] [address], [address] [place] [address] Physician Referralon 024 Physician Referral [id number] Normal [facility] Alanine aminotransferase [En zymatic activity/volume] in Serum or PlasmaOrdered By: Kelly Hough on 09-27-2023 ALT [Catalytic activity/Vol] 9 U/L 7-52 [facility] Albumin [Mass/volume] in Ser um or Plasma by Bromocresol green (BCG) dye binding methoOrdered By: Kelly Hough on 09-27-2023 Albumin BCG dye [Mass/Vol] 4.3 g/dL 3.5-5.7 [facility] Alkaline phosphatase [Enzyma tic activity/volume] in Serum or PlasmaOrdered By: Kelly Hough on 09-27-2023 ALP [Catalytic activity/Vol] 41 U/L 34-104 [facility] Aspartate aminotransferase [ Enzymatic activity/volume] in Serum or PlasmaOrdered By: Kelly Hough on 09-27-2023 AST [Catalytic activity/Vol] 10 U/L 13-39 [facility] Basophils Auto (Bld) [#/Vol] Ordered By: Kelly Hough on 09-27-2023 Basophils (Bld) [#/Vol] 0.0 10*3/uL 0.0-0.2 [facility] Basophils/100 WBC Auto (Bld) Ordered By: Kelly Hough on 09-27-2023 Basophils/100 WBC (Bld) 0.3 % . [facility] Bilirubin.total [Mass/volume ] in Serum or PlasmaOrdered By: Kelly Hough on 09-27-2023 Bilirubin [Mass/Vol] 0.7 mg/dL 0.3-1.0 [facility] Calcium [Mass/volume] in Ser um or PlasmaOrdered By: Kelly Hough on 09-27-2023 Calcium [Mass/Vol] 9.0 mg/dL 8.6-10.[address] [facility] Carbon dioxide, total [Moles /volume] in Serum or PlasmaOrdered By: Kelly Hough on 09-27-2023 CO2 [Moles/Vol] 29.3 mmol/L 21.0-31.0 [facility] Chloride [Moles/volume] in S salas or PlasmaOrdered By: Kelly Hough on 09-27-2023 Chloride [Moles/Vol] 107 mmol/L 98-107 [facility] Creatinine [Mass/volume] in Serum or PlasmaOrdered By: Kelly Hough on 09-27-2023 Creatinine [Mass/Vol] 0.72 mg/dL 0.60-1.20 [facility] Eosinophils Auto (Bld) [#/Vo l]Ordered By: Kelly Hough on 09-27-2023 Eosinophils (Bld) [#/Vol] 0.1 10*3/uL 0.0-0.45 [facility] Eosinophils/100 WBC Auto (Bl d)Ordered By: Kelly Hough on 09-27-2023 Eosinophils/100 WBC (Bld) 0.8 % . [facility] Erythrocyte distribution wid th Auto (RBC) [Ratio]Ordered By: Kelly Hough on 09-27-2023 Erythrocyte distribution width (RBC) [Ratio] 13.7 % 11.9-15.3 [facility] Ferritin [Mass/volume] in Se rum or PlasmaOrdered By: Kelly Hough on 09-27-2023 Ferritin [Mass/Vol] 171.3 ng/mL 11.0-306.8 [facility] Folate [Mass/volume] in Seru m or PlasmaOrdered By: Kelly Hough on 09-27-2023 Folate [Mass/Vol] 5.5 ng/mL >5.9 [facility] Comment on above: Folate reference ran ge: >5.9 ng/mlThe WHO technical consultation on folate and vitamin [id number] has determined that folate concentrations lessthan 4 ng/ml are considered deficient. Globulin Calc (S) [Mass/Vol] Ordered By: Kelly Hough on 09-27-2023 Globulin (S) [Mass/Vol] 2.5 g/dL [facility] Glucose [Mass/volume] in Ser um or PlasmaOrdered By: Kelly Hough on 09-27-2023 Glucose [Mass/Vol] 113 mg/dL 70-[address] [facility] Comment on above: ADA recommended refe [...] p24 Ag IA Ql Non-Reactive Non Reactive [facility] Comment on above: HIV NegativeHIV-1/HI V-2 antibodies and HIV-1 p24 antigen were NOTdetected. There is no laboratory evidence of HIV infection.Performed at: [address] [id number] Director: Alan Macias PhD, Phone: [phone] Hematocrit Auto (Bld) [Volum e fraction]Ordered By: Kelly Hough on 09-27-2023 Hematocrit (Bld) [Volume fraction] 34.8 % 34.0-46.4 [facility] Hemoglobin [Mass/volume] in BloodOrdered By: Kelly Hough on 09-27-2023 Hemoglobin (Bld) [Mass/Vol] 11.0 g/dL 11.8-15.4 [facility] Iron [Mass/volume] in Serum or PlasmaOrdered By: Kelly Hough on 09-27-2023 Iron [Mass/Vol] 59 ug/dL 50-212 [facility] Iron binding capacity [Mass/ volume] in Serum or PlasmaOrdered By: Kelly Hough on 09-27-2023 Iron binding capacity [Mass/Vol] 231 ug/dL 255-450 [facility] Iron saturation [Mass Fracti on] in Serum or PlasmaOrdered By: Kelly Hough on 09-27-2023 Iron saturation [Mass fraction] 25.5 % 20-50 [facility] Leukocytes [#/volume] correc delmer for nucleated erythrocytes in Blood by Automated counOrdered By: Kelly Hough on 09-27-2023 WBC corrected for nucl RBC Auto (Bld) [#/Vol] 8.3 10*3/uL 3.8-11.6 [facility] Lymphocytes Auto (Bld) [#/Vo l]Ordered By: Kelly Hough on 09-27-2023 Lymphocytes (Bld) [#/Vol] 2.1 10*3/uL 1.00-4.8 [facility] Lymphocytes/100 WBC Auto (Bl d)Ordered By: Kelly Hough on 09-27-2023 Lymphocytes/100 WBC (Bld) 24.7 % . [facility] MCH Auto (RBC) [Entitic mass ]Ordered By: Kelly Hough on 09-27-2023 MCH (RBC) [Entitic mass] 23.5 pg 24.7-34.3 [facility] MCHC Auto (RBC) [Mass/Vol]Or dered By: Kelly Hough on 09-27-2023 MCHC (RBC) [Mass/Vol] 31.6 g/dL 32.0-35.0 [facility] MCV Auto (RBC) [Entitic vol] Ordered By: Kelly Hough on 09-27-2023 MCV (RBC) [Entitic vol] 74.4 fL 80-100 [facility] Monocytes Auto (Bld) [#/Vol] Ordered By: Kelly Hough on 09-27-2023 Monocytes (Bld) [#/Vol] 0.4 10*3/uL 0.0-0.8 [facility] Monocytes/100 WBC Auto (Bld) Ordered By: Kelly Hough on 09-27-2023 Monocytes/100 WBC (Bld) 5.3 % . [facility] Neutrophils Auto (Bld) [#/Vo l]Ordered By: Kelly Hough on 09-27-2023 Neutrophils (Bld) [#/Vol] 5.8 10*3/uL 1.8-7.7 [facility] Neutrophils/100 WBC Auto (Bl d)Ordered By: Kelly Hough on 09-27-2023 Neutrophils/100 WBC (Bld) 68.9 % . [facility] No Panel InformationOrdered By: Kelly Hough on 09-27-2023 Estimated GFR (CKD-EPI) > 60.0 mL/Min [facility] Creatinine Clearance (Chem 105.57 [facility] Nucleated erythrocytes [Pres ence] in Blood by Automated countOrdered By: Kelly Hough on 09-27-2023 Nucleated RBC Auto Ql (Bld) 0.1 /100{WBC} 0-0.5 [facility] Platelet mean volume Auto (B ld) [Entitic vol]Ordered By: Kelly Hough on 09-27-2023 Platelet mean volume (Bld) [Entitic vol] 9.3 fL 6.3-10.7 [facility] Platelets Auto (Bld) [#/Vol] Ordered By: Kelly Hough on 09-27-2023 Platelets (Bld) [#/Vol] 197 10*3/uL 150-450 [facility] Potassium [Moles/volume] in Serum or PlasmaOrdered By: Kelly Hough on 09-27-2023 Potassium [Moles/Vol] 3.4 mmol/L 3.5-5.1 [facility] Protein [Mass/volume] in Ser um or PlasmaOrdered By: Kelly Hough on 09-27-2023 Protein [Mass/Vol] 6.8 g/dL 6.4-8.[address] [facility] RBC Auto (Bld) [#/Vol]Ordere d By: Kelly Hough on 09-27-2023 RBC (Bld) [#/Vol] 4.68 10*6/uL 3.60-5.00 [facility] Reagin Ab [Presence] in Seru m by RPROrdered By: Yudelka Lopez on 09-27-2023 Reagin Ab RPR Ql (S) Non-Reactive Non Reactive [facility] Comment on above: Performed at: [address] [id number] Director: Alan Macias PhD, Phone: [phone] Serum or plasma albumin/glob ulin mass ratioOrdered By: Kelly Hough on 09-27-2023 Albumin/Globulin [Mass ratio] 1.7 {ratio} [facility] Serum or plasma anion gap de terminationOrdered By: Kelly Hough on 09-27-2023 Anion gap [Moles/Vol] 7.1 mmol/L 6.0-15.0 [facility] Sodium [Moles/volume] in Ser um or PlasmaOrdered By: Kelly Hough on 09-27-2023 Sodium [Moles/Vol] 140 mmol/L 136-[address] [facility] Transferrin [Mass/volume] in Serum or PlasmaOrdered By: Kelly Hough on 09-27-2023 Transferrin [Mass/Vol] 165 mg/dL 203-362 [facility] Urea nitrogen [Mass/volume] in Serum or PlasmaOrdered By: Kelly Hough on 09-27-2023 Urea nitrogen [Mass/Vol] 10 mg/dL 7 [facility] Vitamin B12 ser/plasOrdered By: Kelly Hough on 09-27-2023 Cobalamin (Vitamin B12) [Mass/Vol] 446 pg/mL 180 [facility] Cobalamin (Vitamin B12) [Mass/Vol] Vitamin B12 ser/plas 180-4 [facility] WBC Auto (Bld) [#/Vol]Ordere d By: Kelly Hough on 09-27-2023 WBC (Bld) [#/Vol] 8.3 10*3/uL 3.8-11.[address] [facility] Absolute reticulocyte countO rdered By: Kelly Hough on 06-27-2023 Reticulocytes (Bld) [#/Vol] 0.066 10*6/uL 0.024-0.08 4 [facility] Reticulocytes (Bld) [#/Vol] Absolute reticulocyte count 0.024-0.08 4 [facility] Basophil percentageOrdered B y: Kelly Houhg on 06-27-2023 Basophil percentage Basophil percentage 80-158 [facility] Comment on above: This test was develo ped and its performance characteristicsdetermined by [employer]. It has not been cleared orapproved by the Food and Drug Administration. Detection Limit = 5Performed at: [facility] [address] [id number] Director: Artemio Guillen MD, Phone: [phone] Haptoglobin [Mass/volume] in Serum or PlasmaOrdered By: Kelly Ryannemesio on 06-27-2023 Haptoglobin [Mass/Vol] 184 mg/dL 44-215 [facility] Haptoglobin [Mass/Vol] Haptoglobin [Mass /volume] in Serum or Plasma 44-215 [facility] Lactate dehydrogenase [Enzym atic activity/volume] in Serum or Plasma by Lactate to pyOrdered By: Kelly Hough on 06-27-2023 LDH Lactate to pyruvate reaction [Catalytic activity/Vol] 137 U/L 140-271 [facility] LDH Lactate to pyruvate reaction [Catalytic activity/Vol] Lactate dehydrogenase [Enzymatic activity/volume] in Serum or Plasma by Lactate to py Low 140-271 [facility] Monocyte %Ordered By: Kelly amaya on 06-27-2023 Monocyte % 145 ug/dL 80-158 [facility] Comment on above: This test was develo ped and its performance characteristicsdetermined by [employer]. It has not been cleared orapproved by the Food and Drug Administration. Detection Limit = 5Performed at: [address] [id number] Director: Artemio Guillen MD, Phone: [phone] Reticulocytes/100 RBC Auto ( Bld)Ordered By: Kelly Hough on 06-27-2023 Reticulocytes/100 RBC (Bld) 1.4 % 0.5-1.5 [facility] Reticulocytes/100 RBC (Bld) Reticulocyte % auto 0.5-1.5 [facility] Alanine aminotransferase [En zymatic activity/volume] in Serum or PlasmaOrdered By: Kelly Hough on 06-14-2023 ALT [Catalytic activity/Vol] 13 U/L 7-52 [facility] Albumin [Mass/volume] in Ser um or Plasma by Bromocresol green (BCG) dye binding methoOrdered By: Kelly Hough on 06-14-2023 Albumin BCG dye [Mass/Vol] 3.8 g/dL 3.5-5.7 [facility] Alkaline phosphatase [Enzyma tic activity/volume] in Serum or PlasmaOrdered By: Kelly Hough on 06-14-2023 ALP [Catalytic activity/Vol] 33 U/L 34-104 [facility] Aspartate aminotransferase [ Enzymatic activity/volume] in Serum or PlasmaOrdered By: Kelly Hough on 06-14-2023 AST [Catalytic activity/Vol] 10 U/L 13-39 [facility] Basophils Auto (Bld) [#/Vol] Ordered By: Kelly Hough on 06-14-2023 Basophils (Bld) [#/Vol] 0.0 10*3/uL 0.0-0.2 [facility] Basophils/100 WBC Auto (Bld) Ordered By: Kelly Hough on 06-14-2023 Basophils/100 WBC (Bld) 0.4 % . [facility] Bilirubin.total [Mass/volume ] in Serum or PlasmaOrdered By: Kelly Hough on 06-14-2023 Bilirubin [Mass/Vol] 0.4 mg/dL 0.3-1.0 [facility] Calcium [Mass/volume] in Ser um or PlasmaOrdered By: Kelly Hough on 06-14-2023 Calcium [Mass/Vol] 8.8 mg/dL 8.6-10.[address] [facility] Carbon dioxide, total [Moles /volume] in Serum or PlasmaOrdered By: Kelly Hough on 06-14-2023 CO2 [Moles/Vol] 28.5 mmol/L 21.0-31.0 [facility] Chloride [Moles/volume] in S salas or PlasmaOrdered By: Kelly Hough on 06-14-2023 Chloride [Moles/Vol] 104 mmol/L 98-107 [facility] Creatinine [Mass/volume] in Serum or PlasmaOrdered By: Kelly Hough on 06-14-2023 Creatinine [Mass/Vol] 0.82 mg/dL 0.60-1.20 [facility] Eosinophils Auto (Bld) [#/Vo l]Ordered By: Kelly Hough on 06-14-2023 Eosinophils (Bld) [#/Vol] 0.2 10*3/uL 0.0-0.45 [facility] Eosinophils/100 WBC Auto (Bl d)Ordered By: Kelly Hough on 06-14-2023 Eosinophils/100 WBC (Bld) 1.9 % . [facility] Erythrocyte distribution wid th Auto (RBC) [Ratio]Ordered By: Kelly Hough on 06-14-2023 Erythrocyte distribution width (RBC) [Ratio] 13.9 % 11.9-15.3 [facility] Ferritin [Mass/volume] in Se rum or PlasmaOrdered By: Kelly Hough on 06-14-2023 Ferritin [Mass/Vol] 146.0 ng/mL 11.0-306.8 [facility] Globulin Calc (S) [Mass/Vol] Ordered By: Kelly Hough on 06-14-2023 Globulin (S) [Mass/Vol] 2.0 g/dL [facility] Glucose [Mass/volume] in Ser um or PlasmaOrdered By: Kelly Hough on 06-14-2023 Glucose [Mass/Vol] 86 mg/dL 70-[address] [facility] Comment on above: ADA recommended refe rence rangeRandom Glucose Reference Range is dependent on time and content of last meal. Glucose of more than 200 mg/dL in a nonstressed, ambulatory subject supports the diagnosis of Diabetes Mellitus. Hematocrit Auto (Bld) [Volum e fraction]Ordered By: Kelly Hough on 06-14-2023 Hematocrit (Bld) [Volume fraction] 32.4 % 34.0-46.4 [facility] Hemoglobin [Mass/volume] in BloodOrdered By: Kelly Hough on 06-14-2023 Hemoglobin (Bld) [Mass/Vol] 10.3 g/dL 11.8-15.4 [facility] Iron [Mass/volume] in Serum or PlasmaOrdered By: Kelly Hough on 06-14-2023 Iron [Mass/Vol] 62 ug/dL 50-212 [facility] Iron binding capacity [Mass/ volume] in Serum or PlasmaOrdered By: Kelly Hough on 06-14-2023 Iron binding capacity [Mass/Vol] 190 ug/dL 255-450 [facility] Iron saturation [Mass Fracti on] in Serum or PlasmaOrdered By: Kelly Hough on 06-14-2023 Iron saturation [Mass fraction] 32.6 % 20-50 [facility] Leukocytes [#/volume] correc delmer for nucleated erythrocytes in Blood by Automated counOrdered By: Kelly Hough on 06-14-2023 WBC corrected for nucl RBC Auto (Bld) [#/Vol] 8.4 10*3/uL 3.8-11.6 [facility] Lymphocytes Auto (Bld) [#/Vo l]Ordered By: Kelly Hough on 06-14-2023 Lymphocytes (Bld) [#/Vol] 2.6 10*3/uL 1.00-4.8 [facility] Lymphocytes/100 WBC Auto (Bl d)Ordered By: Kelly Hough on 06-14-2023 Lymphocytes/100 WBC (Bld) 31.3 % . [facility] MCH Auto (RBC) [Entitic mass ]Ordered By: Kelly Hough on 06-14-2023 MCH (RBC) [Entitic mass] 23.8 pg 24.7-34.3 [facility] MCHC Auto (RBC) [Mass/Vol]Or dered By: Kelly Hough on 06-14-2023 MCHC (RBC) [Mass/Vol] 31.7 g/dL 32.0-35.0 [facility] MCV Auto (RBC) [Entitic vol] Ordered By: Kelly Hough on 06-14-2023 MCV (RBC) [Entitic vol] 75.2 fL 80-100 [facility] Monocytes Auto (Bld) [#/Vol] Ordered By: Kelly Hough on 06-14-2023 Monocytes (Bld) [#/Vol] 0.5 10*3/uL 0.0-0.8 [facility] Monocytes/100 WBC Auto (Bld) Ordered By: Kelly Hough on 06-14-2023 Monocytes/100 WBC (Bld) 5.9 % . [facility] Neutrophils Auto (Bld) [#/Vo l]Ordered By: Kelly Hough on 06-14-2023 Neutrophils (Bld) [#/Vol] 5.1 10*3/uL 1.8-7.7 [facility] Neutrophils/100 WBC Auto (Bl d)Ordered By: Kelly Hough on 06-14-2023 Neutrophils/100 WBC (Bld) 60.5 % . [facility] No Panel InformationOrdered By: Kelly Hough on 06-14-2023 Estimated GFR (CKD-EPI) > 60.0 mL/Min [facility] Creatinine Clearance (Chem 93.10 [facility] Nucleated erythrocytes [Pres ence] in Blood by Automated countOrdered By: Kelly Hough on 06-14-2023 Nucleated RBC Auto Ql (Bld) 0.1 /100{WBC} 0-0.5 [facility] Platelet mean volume Auto (B ld) [Entitic vol]Ordered By: Kelly Hough on 06-14-2023 Platelet mean volume (Bld) [Entitic vol] 9.6 fL 6.3-10.7 [facility] Platelets Auto (Bld) [#/Vol] Ordered By: Kelly Hough on 06-14-2023 Platelets (Bld) [#/Vol] 189 10*3/uL 150-450 [facility] Potassium [Moles/volume] in Serum or PlasmaOrdered By: Kelly Hough on 06-14-2023 Potassium [Moles/Vol] 4.1 mmol/L 3.5-5.1 [facility] Protein [Mass/volume] in Ser um or PlasmaOrdered By: Kelly Hough on 06-14-2023 Protein [Mass/Vol] 5.8 g/dL 6.4-8.[address] [facility] RBC Auto (Bld) [#/Vol]Ordere d By: Kelly Hough on 06-14-2023 RBC (Bld) [#/Vol] 4.31 10*6/uL 3.60-5.00 [facility] Serum or plasma albumin/glob ulin mass ratioOrdered By: Kelly Hough on 06-14-2023 Albumin/Globulin [Mass ratio] 1.9 {ratio} [facility] Serum or plasma anion gap de terminationOrdered By: Kelly Hough on 06-14-2023 Anion gap [Moles/Vol] 10.6 mmol/L 6.0-15.0 [facility] Sodium [Moles/volume] in Ser um or PlasmaOrdered By: Kelly Hough on 06-14-2023 Sodium [Moles/Vol] 139 mmol/L 136-[address] [facility] Thyrotropin [Units/volume] i n Serum or PlasmaOrdered By: Dayne Horton on 06-14-2023 TSH Qn 1.43 m[IU]/L 0.45-5.33 [facility] Thyroxine (T4) free [Mass/vo lume] in Serum or PlasmaOrdered By: Dayne Horton on 06-14-2023 Free T4 [Mass/Vol] 1.22 ng/dL 0.61-1.[address] [facility] Transferrin [Mass/volume] in Serum or PlasmaOrdered By: Kelly Hough on 06-14-2023 Transferrin [Mass/Vol] 136 mg/dL 203-362 [facility] Triiodothyronine (T3) Free [ Mass/volume] in Serum or PlasmaOrdered By: Dayne Horton on 06-14-2023 Free T3 [Mass/Vol] 3.99 pg/mL 2.50-3.[address] [facility] Urea nitrogen [Mass/volume] in Serum or PlasmaOrdered By: Kelly Hough on 06-14-2023 Urea nitrogen [Mass/Vol] 11 mg/dL 7-25 [facility] WBC Auto (Bld) [#/Vol]Ordere d By: Kelly Hough on 06-14-2023 WBC (Bld) [#/Vol] 8.4 10*3/uL 3.8-11.[address] [facility] Provider Letteron 04-09-2023 Provider Letter (Inserted Image. Radha ble to display) April 09, 2023 LEANDRA FONSECA [address] [place] [id number] : 1990 Dear Leandra , We have been trying to reach you with no success. It is important that you return our call regarding your referral from Kelvin Draper upon receiving this letter. Also, at the time of your call, please provide us with your current information. Thank you for your prompt attention to this matter. Sincerely, General Surgery [facility] [phone] [facility] Lab Reportson 04-04-2023 Lab Reports [id number]:127 [facility] Physician Referralon 023 Physician Referral [id number]:127 [facility] Albumin [Mass/volume] in Ser um or PlasmaOrdered By: Kelly Hough on 03-21-2023 Albumin [Mass/Vol] 3.6 g/dL 2.9-4.[address] [facility] Albumin [Mass/Vol] Albumin [Mass/volume ] in Serum or Plasma 2.9-4.4 [facility] IgA [Mass/volume] in Serum o r PlasmaOrdered By: Kelly Hough on 03-21-2023 IgA [Mass/Vol] 158 mg/dL 87-352 [facility] IgA [Mass/Vol] IgA [Mass/volume] in Serum or Plasma 87-352 [facility] IgG [Mass/volume] in Serum o r PlasmaOrdered By: Kelly Ryannemesio on 03-21-2023 IgG [Mass/Vol] 1046 mg/dL 586-1602 [facility] IgG [Mass/Vol] IgG [Mass/volume] in Serum or Plasma [phone] [facility] IgM [Mass/volume] in Serum o r PlasmaOrdered By: Kelly Ryannemesio on 03-21-2023 IgM [Mass/Vol] 302 mg/dL -217 [facility] Comment on above: Performed at: [employer] [place] [id number] Director: Alan Macias PhD, Phone: [phone] IgM [Mass/Vol] IgM [Mass/volume] in Serum or Plasma [facility] [address] Comment on above: Performed at: [employer] [place], [place] [id number] Director: Alan Macias PhD, Phone: [employer] Immunoglobulin light chains. kappa.free [Mass/volume] in SerumOrdered By: Kelly Ryannemesio on 03-21-2023 Immunoglobulin light chains.kappa.free (S) [Mass/Vol] 19.2 mg/L 3.3-19.4 [facility] Immunoglobulin light chains.kappa.free (S) [Mass/Vol] Immunoglobulin light chains.kappa.free [Mass/volume] in Serum 3.3-19.4 [facility] Immunoglobulin light chains. kappa.free/Immunoglobulin light chains.lambda.free [MassOrdered By: Kelly France on 03-21-2023 Immunoglobulin light chains.kappa.free/Immu noglobulin light chains.lambda.free (S) [Mass ratio] 1.31 0.26-1.65 [facility] Comment on above: Performed at: [employer] [place], [place] [id number] Director: Alan Macias PhD, Phone: [phone] Immunoglobulin light chains.kappa.free/Immu noglobulin light chains.lambda.free (S) [Mass ratio] Immunoglobulin light chains.kappa.free/Immunoglo bulin light chains.lambda.free [Mass 0.26-1.65 [facility] Comment on above: Performed at: - [address] [id number] Director: Alan Macias PhD, Phone: [phone] Immunoglobulin light chains. lambda.free [Mass/volume] in Serum or PlasmaOrdered By: Kelly Hough on 03-21-2023 Immunoglobulin light chains.lambda.free [Mass/Vol] 14.7 mg/L 5.7-26.3 [facility] Immunoglobulin light chains.lambda.free [Mass/Vol] Immunoglobulin light chains.lambda.free [Mass/volume] in Serum or Plasma 5.7-26.3 [facility] No Panel InformationOrdered By: Kelly Hough on 03-21-2023 Protein Electrophoresis M-Emanuel Not observed g/dL Not Observed [facility] Protein Electrophoresis Note See comment . [facility] Comment on above: Protein electrophore sis scan will follow via computer,mail, or distribution agent delivery. Serum Immunofixation See comment . [facility] Comment on above: No monoclonality det ected. Slides for Pathologist Review Ordered path review [facility] Protein [Mass/volume] in Ser um or PlasmaOrdered By: Kelly Houhg on 03-21-2023 Protein [Mass/Vol] 6.5 g/dL 6.0-8.[address] [facility] Protein [Mass/Vol] Protein [Mass/volume ] in Serum or Plasma 6.0-8.5 [facility] Serum globulin measurement ( mass/volume)Ordered By: Kelly Hough on 03-21-2023 Globulin (S) [Mass/Vol] 2.9 g/dL 2.2-3.9 [facility] Globulin (S) [Mass/Vol] Serum globulin measurement (mass/volume) 2.2-3.9 [facility] Serum or plasma albumin/glob ulin mass ratioOrdered By: Kelly Hough on 03-21-2023 Albumin/Globulin [Mass ratio] 1.2 {ratio} 0.7-1.7 [facility] Albumin/Globulin [Mass ratio] Serum or plasma albumin/globulin mass ratio 0.7-1.7 [facility] Serum or plasma alpha 1 glob ulin measurement by electrophoresis (mass/volume)Ordered By: Kelly Hough on 03-21-2023 Alpha 1 globulin Elph [Mass/Vol] 0.3 g/dL 0.0-0.4 [facility] Alpha 1 globulin Elph [Mass/Vol] Serum or plasma alpha 1 globulin measurement by electrophoresis (mass/volume) 0.0-0.4 [facility] Serum or plasma alpha 2 glob ulin measurement by electrophoresis (mass/volume)Ordered By: Kelly Hough on 03-21-2023 Alpha 2 globulin Elph [Mass/Vol] 0.8 g/dL 0.4-1.0 [facility] Alpha 2 globulin Elph [Mass/Vol] Serum or plasma alpha 2 globulin measurement by electrophoresis (mass/volume) 0.4-1.0 [facility] Serum or plasma beta globuli n measurement by electrophoresis (mass/volume)Ordered By: Kelly Hough on 03-21-2023 Beta globulin Elph [Mass/Vol] 0.7 g/dL 0.7-1.3 [facility] Beta globulin Elph [Mass/Vol] Serum or plasma beta globulin measurement by electrophoresis (mass/volume) 0.7-1.3 [facility] Serum or plasma gamma globul in measurement by electrophoresis (mass/volume)Ordered By: Kelly Hough on 03-21-2023 Gamma globulin Elph [Mass/Vol] 1.1 g/dL 0.4-1.8 [facility] Gamma globulin Elph [Mass/Vol] Serum or plasma gamma globulin measurement by electrophoresis (mass/volume) 0.4-1.8 [facility] Alanine aminotransferase [En zymatic activity/volume] in Serum or PlasmaOrdered By: Jim Vega on 02-06-2023 ALT [Catalytic activity/Vol] 10 U/L 7-52 [facility] Albumin [Mass/volume] in Ser um or Plasma by Bromocresol green (BCG) dye binding methoOrdered By: Jim Vega on 02-06-2023 Albumin BCG dye [Mass/Vol] 4.2 g/dL 3.5-5.7 [facility] Alkaline phosphatase [Enzyma tic activity/volume] in Serum or PlasmaOrdered By: Jim Vega on 02-06-2023 ALP [Catalytic activity/Vol] 45 U/L 34-104 [facility] Aspartate aminotransferase [ Enzymatic activity/volume] in Serum or PlasmaOrdered By: Jim Vega on 02-06-2023 AST [Catalytic activity/Vol] 12 U/L 13-39 [facility] Automated erythrocytes count in urine sediment (number/area)Ordered By: Jim Vega on 02-06-2023 RBC Auto (Urine sed) [#/Area] 5-9 [HPF] 0-4 [facility] Automated leukocytes count i n urine sediment (number/area)Ordered By: Jim Vega on 02-06-2023 WBC Auto (Urine sed) [#/Area] 3-4 [HPF] 0-4 [facility] Basophils Auto (Bld) [#/Vol] Ordered By: Jim Vega on 02-06-2023 Basophils (Bld) [#/Vol] 0.0 10*3/uL 0.0-0.2 [facility] Basophils/100 WBC Auto (Bld) Ordered By: Jim Vega on 02-06-2023 Basophils/100 WBC (Bld) 0.7 % . [facility] Bilirubin Test strip Ql (U)O rdered By: Jim Vega on 02-06-2023 Bilirubin Ql (U) Negative Negative [facility] Bilirubin.total [Mass/volume ] in Serum or PlasmaOrdered By: Jim Vega on 02-06-2023 Bilirubin [Mass/Vol] 0.5 mg/dL 0.3-1.0 [facility] Calcium [Mass/volume] in Ser um or PlasmaOrdered By: Jim Vega on 02-06-2023 Calcium [Mass/Vol] 8.5 mg/dL 8.6-10.[address] [facility] Carbon dioxide, total [Moles /volume] in Serum or PlasmaOrdered By: Jim Vega on 02-06-2023 CO2 [Moles/Vol] 26.0 mmol/L 21.0-31.0 [facility] Chloride [Moles/volume] in S salas or PlasmaOrdered By: Jim Vega on 02-06-2023 Chloride [Moles/Vol] 105 mmol/L 98-107 [facility] Color Auto (U)Ordered By: Narinder red Silvia on 02-06-2023 Color (U) Yellow Yellow [facility] Creatinine [Mass/volume] in Serum or PlasmaOrdered By: Jim Vega on 02-06-2023 Creatinine [Mass/Vol] 0.78 mg/dL 0.60-1.20 [facility] Eosinophils Auto (Bld) [#/Vo l]Ordered By: Jim Vega on 02-06-2023 Eosinophils (Bld) [#/Vol] 0.1 10*3/uL 0.0-0.45 [facility] Eosinophils/100 WBC Auto (Bl d)Ordered By: Jim Vega on 02-06-2023 Eosinophils/100 WBC (Bld) 2.2 % . [facility] Erythrocyte distribution wid th Auto (RBC) [Ratio]Ordered By: Jim Vega on 02-06-2023 Erythrocyte distribution width (RBC) [Ratio] 14.3 % 11.9-15.3 [facility] Globulin Calc (S) [Mass/Vol] Ordered By: Jim Vega on 02-06-2023 Globulin (S) [Mass/Vol] 3.0 g/dL [facility] Glucose [Mass/volume] in Ser um or PlasmaOrdered By: Jim Vega on 02-06-2023 Glucose [Mass/Vol] 92 mg/dL 70-[address] [facility] Comment on above: ADA recommended refe rence rangeRandom Glucose Reference Range is dependent on time and content of last meal. Glucose of more than 200 mg/dL in a nonstressed, ambulatory subject supports the diagnosis of Diabetes Mellitus. HCG ( test) IA.rapi d Ql (U)Ordered By: Jim Vega on 02-06-2023 HCG ( test) Ql (U) Negative [facility] Hematocrit Auto (Bld) [Volum e fraction]Ordered By: Jim Vega on 02-06-2023 Hematocrit (Bld) [Volume fraction] 35.2 % 34.0-46.4 [facility] Hemoglobin [Mass/volume] in BloodOrdered By: Jim Vega on 02-06-2023 Hemoglobin (Bld) [Mass/Vol] 11.0 g/dL 11.8-15.4 [facility] Ketones Auto test strip (U) [Mass/Vol]Ordered By: Jim Vega on 02-06-2023 Ketones (U) [Mass/Vol] Negative Negative Fi [facility] - UrinalysisOrder ed By: Jim Vega on 02-06-2023 Hyaline casts LM Ql (Urine sed) 0-8 [LPF] 0-8 [facility] Leukocytes [#/volume] correc delmer for nucleated erythrocytes in Blood by Automated counOrdered By: Jim Vega on 02-06-2023 WBC corrected for nucl RBC Auto (Bld) [#/Vol] 5.3 10*3/uL 3.8-11.6 [facility] Lymphocytes Auto (Bld) [#/Vo l]Ordered By: Jim Vega on 02-06-2023 Lymphocytes (Bld) [#/Vol] 1.4 10*3/uL 1.00-4.8 [facility] Lymphocytes/100 WBC Auto (Bl d)Ordered By: Jim Vega on 02-06-2023 Lymphocytes/100 WBC (Bld) 25.8 % . [facility] MCH Auto (RBC) [Entitic mass ]Ordered By: Jim Vega on 02-06-2023 MCH (RBC) [Entitic mass] 22.8 pg 24.7-34.3 [facility] MCHC Auto (RBC) [Mass/Vol]Or dered By: Jim Vega on 02-06-2023 MCHC (RBC) [Mass/Vol] 31.1 g/dL 32.0-35.0 [facility] MCV Auto (RBC) [Entitic vol] Ordered By: Jim Vega on 02-06-2023 MCV (RBC) [Entitic vol] 73.2 fL 80-100 [facility] Monocyte distribution width [Entitic volume] in Blood by AutomatedOrdered By: Jim Vega on 02-06-2023 Monocyte distribution width Auto (Bld) [Entitic vol] 18.18 % 0.00-20.00 [facility] Monocytes Auto (Bld) [#/Vol] Ordered By: Jim Vega on 02-06-2023 Monocytes (Bld) [#/Vol] 0.4 10*3/uL 0.0-0.8 [facility] Monocytes/100 WBC Auto (Bld) Ordered By: Jim Vega on 02-06-2023 Monocytes/100 WBC (Bld) 7.1 % . [facility] Neutrophils Auto (Bld) [#/Vo l]Ordered By: Jim Vega on 02-06-2023 Neutrophils (Bld) [#/Vol] 3.4 10*3/uL 1.8-7.7 [facility] Neutrophils/100 WBC Auto (Bl d)Ordered By: Jim Vega on 02-06-2023 Neutrophils/100 WBC (Bld) 64.2 % . [facility] Nitrite Test strip Ql (U)Ord ered By: Jim Vega on 02-06-2023 Nitrite Ql (U) Negative Negative [facility] No Panel InformationOrdered By: Jim Vega on 02-06-2023 Estimated GFR (CKD-EPI) > 60.0 mL/Min [facility] Creatinine Clearance (Chem 100.96 [facility] Nucleated erythrocytes [Pres ence] in Blood by Automated countOrdered By: Jim Vega on 02-06-2023 Nucleated RBC Auto Ql (Bld) 0.1 /100{WBC} 0-0.5 [facility] Platelet mean volume Auto (B ld) [Entitic vol]Ordered By: Jim Vega on 02-06-2023 Platelet mean volume (Bld) [Entitic vol] 9.4 fL 6.3-10.7 [facility] Platelets Auto (Bld) [#/Vol] Ordered By: Jim Vega on 02-06-2023 Platelets (Bld) [#/Vol] 175 10*3/uL 150-450 [facility] Potassium [Moles/volume] in Serum or PlasmaOrdered By: Jim Vega on 02-06-2023 Potassium [Moles/Vol] 3.5 mmol/L 3.5-5.1 [facility] Protein Auto test strip (U) [Mass/Vol]Ordered By: Jim Vega on 02-06-2023 Protein (U) [Mass/Vol] Negative Negative [facility] Protein [Mass/volume] in Ser um or PlasmaOrdered By: Jim Vega on 02-06-2023 Protein [Mass/Vol] 7.2 g/dL 6.4-8.[address] [facility] RBC Auto (Bld) [#/Vol]Ordere d By: Jim Vega on 02-06-2023 RBC (Bld) [#/Vol] 4.81 10*6/uL 3.60-5.00 [facility] Serum or plasma albumin/glob ulin mass ratioOrdered By: Jim Vega on 02-06-2023 Albumin/Globulin [Mass ratio] 1.4 {ratio} [facility] Serum or plasma anion gap de terminationOrdered By: Jim Vega on 02-06-2023 Anion gap [Moles/Vol] 9.5 mmol/L 6.0-15.0 [facility] Sodium [Moles/volume] in Ser um or PlasmaOrdered By: Jim Vega on 02-06-2023 Sodium [Moles/Vol] 137 mmol/L 136-[address] [facility] Specific gravity Auto test s trip (U) [Rel density]Ordered By: Jim Vega on 02-06-2023 Specific gravity (U) [Rel density] 1.010 1.001-1.03 0 [facility] Squamous epithelial cells de tection in urine sediment by light microscopyOrdered By: Jim Vega on 02-06-2023 Epithelial cells.squamous LM Ql (Urine sed) 5-9 [HPF] 0-2 [facility] Urea nitrogen [Mass/volume] in Serum or PlasmaOrdered By: Jim Vega on 02-06-2023 Urea nitrogen [Mass/Vol] 11 mg/dL 7-25 [facility] Urine bacteria detection by automated methodOrdered By: Jim Vega on 02-06-2023 Bacteria Auto Ql (U) None seen None Seen [facility] Urine clarity by refractomet ry automatedOrdered By: Jim Vega on 02-06-2023 Clarity Refractometry automated (U) Clear Clear [facility] Urine glucose measurement by automated test strip (mass/volume)Ordered By: Jim Vega on 02-06-2023 Glucose Auto test strip (U) [Mass/Vol] Normal mg/dL Normal [facility] Urine hemoglobin detection b y automated test stripOrdered By: Jim Vega on 02-06-2023 Hemoglobin Auto test strip Ql (U) Trace Negative [facility] Urine leukocyte esterase det ection by automated test stripOrdered By: Jim Vega on 02-06-2023 Leukocyte esterase Auto test strip Ql (U) Negative Negative [facility] Urobilinogen Auto test strip (U) [Mass/Vol]Ordered By: Jim Vega on 02-06-2023 Urobilinogen (U) [Mass/Vol] Normal mg/dL Normal [facility] WBC Auto (Bld) [#/Vol]Ordere d By: Jim Vega on 02-06-2023 WBC (Bld) [#/Vol] 5.3 10*3/uL 3.8-11.[address] [facility] pH Auto test strip (U)Ordere d By: Jim Vega on 02-06-2023 pH (U) 8.0 [pH] 5.0-9.0 [facility] Ferritin [Mass/volume] in Se rum or PlasmaOrdered By: Kelly Hough on 01-24-2023 Ferritin [Mass/Vol] 64.3 ng/mL 11.0-306.8 [facility] Iron [Mass/volume] in Serum or PlasmaOrdered By: Kelly Hough on 01-24-2023 Iron [Mass/Vol] 85 ug/dL 50-212 [facility] Iron binding capacity [Mass/ volume] in Serum or PlasmaOrdered By: Kelly Hough on 01-24-2023 Iron binding capacity [Mass/Vol] 227 ug/dL 255-450 [facility] Iron saturation [Mass Fracti on] in Serum or PlasmaOrdered By: Kelly Hough on 01-24-2023 Iron saturation [Mass fraction] 37.4 % 20-50 [facility] Transferrin [Mass/volume] in Serum or PlasmaOrdered By: Kelly Hough on 01-24-2023 Transferrin [Mass/Vol] 162 mg/dL 203-362 [facility] Basophils Auto (Bld) [#/Vol] Ordered By: Kelly Hough on 12-25-2022 Basophils (Bld) [#/Vol] 0.0 10*3/uL 0.0-0.2 [facility] Basophils/100 WBC Auto (Bld) Ordered By: Kelly Hough on 12-25-2022 Basophils/100 WBC (Bld) 0.3 % . [facility] C reactive protein [Mass/vol ume] in Serum or PlasmaOrdered By: Jose Shanks on 12-25-2022 CRP [Mass/Vol] < 0.5 mg/dL 0.0-0.5 [facility] Calprotectin [Mass/mass] in StoolOrdered By: Jose Shanks on 12-25-2022 Calprotectin (Stl) [Mass/Mass] 32 ug/g 0-120 [facility] Comment on above: Concentration Interp retation Follow-Up<16 - 50 ug/g Normal None>50 -120 ug/g Borderline Re-evaluate in 4-6 weeks >120 ug/g Abnormal Repeat as clinically indicatedPerformed at: - [facility] [address] [id number] Director: Artemio Guillen MD, Phone: [phone] Eosinophils Auto (Bld) [#/Vo l]Ordered By: Kelly Hough on 12-25-2022 Eosinophils (Bld) [#/Vol] 0.1 10*3/uL 0.0-0.45 [facility] Eosinophils/100 WBC Auto (Bl d)Ordered By: Kelly Hough on 12-25-2022 Eosinophils/100 WBC (Bld) 1.1 % . [facility] Erythrocyte distribution wid th Auto (RBC) [Ratio]Ordered By: Kelly Hough on 12-25-2022 Erythrocyte distribution width (RBC) [Ratio] 15.5 % 11.9-15.3 [facility] Erythrocyte sedimentation ra te by Photometric methodOrdered By: Jose Shanks on 12-25-2022 ESR Photometric method (Bld) [Velocity] 32 mm/hr 0-19 [facility] Ferritin [Mass/volume] in Se rum or PlasmaOrdered By: Kelly Hough on 12-25-2022 Ferritin [Mass/Vol] 58.3 ng/mL 11.0-306.8 [facility] Hematocrit Auto (Bld) [Volum e fraction]Ordered By: Kelly Hough on 12-25-2022 Hematocrit (Bld) [Volume fraction] 35.3 % 34.0-46.4 [facility] Hemoglobin [Mass/volume] in BloodOrdered By: Kelly Hough on 12-25-2022 Hemoglobin (Bld) [Mass/Vol] 11.0 g/dL 11.8-15.4 [facility] IgA [Mass/volume] in Serum o r PlasmaOrdered By: Jose Shanks on 12-25-2022 IgA [Mass/Vol] 164 mg/dL 87-352 [facility] Comment on above: Performed at: [address] Director: Alan Macias PhD, Phone: [phone] Iron [Mass/volume] in Serum or PlasmaOrdered By: Kelly Hough on 12-25-2022 Iron [Mass/Vol] 112 ug/dL 50-212 [facility] Iron binding capacity [Mass/ volume] in Serum or PlasmaOrdered By: Kelly Hough on 12-25-2022 Iron binding capacity [Mass/Vol] 241 ug/dL 255-450 [facility] Iron saturation [Mass Fracti on] in Serum or PlasmaOrdered By: Kelly Hough on 12-25-2022 Iron saturation [Mass fraction] 46.5 % 20-50 [facility] Leukocytes [#/volume] correc delmer for nucleated erythrocytes in Blood by Automated counOrdered By: Kelly Hough on 12-25-2022 WBC corrected for nucl RBC Auto (Bld) [#/Vol] 6.8 10*3/uL 3.8-11.6 [facility] Lymphocytes Auto (Bld) [#/Vo l]Ordered By: Kelly Hough on 12-25-2022 Lymphocytes (Bld) [#/Vol] 1.7 10*3/uL 1.00-4.8 [facility] Lymphocytes/100 WBC Auto (Bl d)Ordered By: Kelly Hough on 12-25-2022 Lymphocytes/100 WBC (Bld) 25.5 % . [facility] MCH Auto (RBC) [Entitic mass ]Ordered By: Kelly Hough on 12-25-2022 MCH (RBC) [Entitic mass] 22.3 pg 24.7-34.3 [facility] MCHC Auto (RBC) [Mass/Vol]Or dered By: Kelly Hough on 12-25-2022 MCHC (RBC) [Mass/Vol] 31.1 g/dL 32.0-35.0 [facility] MCV Auto (RBC) [Entitic vol] Ordered By: Kelly Hough on 12-25-2022 MCV (RBC) [Entitic vol] 71.8 fL 80-100 [facility] Monocytes Auto (Bld) [#/Vol] Ordered By: Kelly Hough on 12-25-2022 Monocytes (Bld) [#/Vol] 0.4 10*3/uL 0.0-0.8 [facility] Monocytes/100 WBC Auto (Bld) Ordered By: Kelly Hough on 12-25-2022 Monocytes/100 WBC (Bld) 6.3 % . [facility] Neutrophils Auto (Bld) [#/Vo l]Ordered By: Kelly Hough on 12-25-2022 Neutrophils (Bld) [#/Vol] 4.5 10*3/uL 1.8-7.7 [facility] Neutrophils/100 WBC Auto (Bl d)Ordered By: Kelly Hough on 12-25-2022 Neutrophils/100 WBC (Bld) 66.8 % . [facility] No Panel InformationOrdered By: Jose Shanks on 12-25-2022 Endomysial IgA Antibody Negative Negative [facility] Nucleated erythrocytes [Pres ence] in Blood by Automated countOrdered By: Kelly Hough on 12-25-2022 Nucleated RBC Auto Ql (Bld) 0.2 /100{WBC} 0-0.5 [facility] Platelet mean volume Auto (B ld) [Entitic vol]Ordered By: Kelly France on 12-25-2022 Platelet mean volume (Bld) [Entitic vol] 9.5 fL 6.3-10.7 [facility] Platelets Auto (Bld) [#/Vol] Ordered By: Kelly France on 12-25-2022 Platelets (Bld) [#/Vol] 191 10*3/uL 150-450 [facility] RBC Auto (Bld) [#/Vol]Ordere d By: Kelly France on 12-25-2022 RBC (Bld) [#/Vol] 4.92 10*6/uL 3.60-5.00 [facility] Serum gliadin peptide IgA an tibody assay (units/volume)Ordered By: Jose Shanks on 12-25-2022 Gliadin peptide IgA Qn (S) 7 units 0-19 [facility] Comment on above: Negative 0 - 19 Weak Positive 20 - 30 Moderate to Strong Positive >30 Serum gliadin peptide IgG an tibody assay (units/volume)Ordered By: Jose Shanks on 12-25-2022 Gliadin peptide IgG Qn (S) 3 units 0-19 [facility] Comment on above: Negative 0 - 19 Weak Positive 20 - 30 Moderate to Strong Positive >30 Serum tissue transglutaminas e (tTG) IgA antibody assay (units/volume)Ordered By: Jose Shanks on 12-25-2022 tTG IgA Qn (S) <2 U/mL 0-3 [facility] Comment on above: Negative 0 - 3 Weak Positive 4 - 10 Positive >10 Tissue Transglutaminase (tTG) has been identified as the endomysial antigen. Studies have demonstr- ated that endomysial IgA antibodies have over 99% specificity for gluten sensitive enteropathy. Serum tissue transglutaminas e (tTG) IgG antibody assay (units/volume)Ordered By: Jose Shanks on 12-25-2022 tTG IgG Qn (S) <2 U/mL 0-5 [facility] Comment on above: Negative 0 - 5 Weak Positive 6 - 9 Positive >9 Thyrotropin [Units/volume] i n Serum or PlasmaOrdered By: Jose Shanks on 12-25-2022 TSH Qn 0.78 m[IU]/L 0.45-5.33 [facility] Thyroxine (T4) free [Mass/vo lume] in Serum or PlasmaOrdered By: Dayne Horton on 12-25-2022 Free T4 [Mass/Vol] 0.93 ng/dL 0.61-1.[address] [facility] Transferrin [Mass/volume] in Serum or PlasmaOrdered By: Kelly Hough on 12-25-2022 Transferrin [Mass/Vol] 172 mg/dL 203-362 [facility] Triiodothyronine (T3) Free [ Mass/volume] in Serum or PlasmaOrdered By: Dayne Horton on 12-25-2022 Free T3 [Mass/Vol] 3.54 pg/mL 2.50-3.[address] [facility] Vitamin D+Metabolites [Mass/ volume] in Serum or PlasmaOrdered By: Dayne Horton on 12-25-2022 Vitamin D+Metabolites [Mass/Vol] 27.0 ng/mL 30-100 [facility] Comment on above: VITAMIN D STATUS 25( [place])VITAMIN D RANGE (ng/mL) Deficient <20 Insufficient 20 to <30Sufficient 30 to 100Reference: Pam MF,Abelardo NC, Cj GARZA, et al. Evaluation,treatment, and prevention of vitamin D deficiency; an Endocrine Society clinical practice guideline. JCEM. 2010; 96(7):1911-30. WBC Auto (Bld) [#/Vol]Ordere d By: Kelly Hough on 12-25-2022 WBC (Bld) [#/Vol] 6.8 10*3/uL 3.8-11.[address] [facility] AMYLASEon 12-07-2022 Amylase [Catalytic activity/Vol] 82 U/L Normal 25-115 [facility] Comment on above: Performed By: #### U MICRO, PREGU, ERUR #### [facility] [address] [address] [address] Adam Mejía CARDIAC REBECCA 3-6on 3 CK [Catalytic activity/Vol] 50 U/L Normal 26-192 [facility] Comment on above: Performed By: #### U MICRO, PREGU, ERUR #### [facility] [address] [address] [address] Adam Mejía CK.MB [Mass/Vol] ng/mL Normal <=3.60 [facility] Comment on above: Performed By: #### U MICRO, PREGU, ERUR #### [facility] [address] [address] [address] Adam Mejía HSTROP <4.0 Normal 4.0-51.3 [facility] Comment on above: Result Comment: CUT- OFF POINTS HAVE BEEN ESTABLISHED BASED ON THE FOURTH UNIVERSAL DEFINITIONS OF MYOCARDIAL INFARCTION. THE UPPER REFERENCE LIMIT (URL) OF TROPONIN, DEFINED THE 99TH PERCENTILE OF cTnI DISTRIBUTION IN A REFERENCE POPULATION, HAS BEEN CONFIRMED THE DECISION THRESHOLD FOR [place] DIAGNOSIS. Performed By: #### U MICRO, PREGU, ERUR #### [facility] [address] [place] [address] Dr. Adam Mejía CARDIAC REBECCA ADMITon 023 CK [Catalytic activity/Vol] 60 U/L Normal 26-192 [facility] Comment on above: Performed By: #### U MICRO, PREGU, ERUR #### [facility] [address] [place] [address] Dr. Adam Mejía CK.MB [Mass/Vol] ng/mL Normal <=3.60 [facility] Comment on above: Performed By: #### U MICRO, PREGU, ERUR #### [facility] [address] [place] [address] Dr. Adam Mejía HSTROP <4.0 Normal 4.0-51.3 [facility] Comment on above: Result Comment: CUT- OFF POINTS HAVE BEEN ESTABLISHED BASED ON THE FOURTH UNIVERSAL DEFINITIONS OF MYOCARDIAL INFARCTION. THE UPPER REFERENCE LIMIT (URL) OF TROPONIN, DEFINED THE 99TH PERCENTILE OF cTnI DISTRIBUTION IN A REFERENCE POPULATION, HAS BEEN CONFIRMED THE DECISION THRESHOLD FOR [place] DIAGNOSIS. Performed By: #### U MICRO, PREGU, ERUR #### [facility] [address] [address] [address] Adam Mejía OSMIN 17 ng/mL Normal 9-82 [facility] Comment on above: Performed By: #### U MICRO, PREGU, ERUR #### [facility] [address] [address] [address] Adam Mejía CBC AUTO DIFFon 12-07-2022 BASO # 0.0 103/ul Normal 0.0-0.1 [facility] Comment on above: Performed By: #### U MICRO, PREGU, ERUR #### [facility] [address] [place] [address] Dr. Adam Mejía Basophils/100 WBC (Bld) 0.3 % Normal 0.2-2.0 [facility] Comment on above: Performed By: #### U MICRO, PREGU, ERUR #### [facility] [address] [place] [address] Dr. Adam Mejía EO # 0.2 103/ul Normal 0.0-0.7 [facility] Comment on above: Performed By: #### U MICRO, PREGU, ERUR #### [facility] [address] [place] [address] Dr. Adam Mejía Eosinophils/100 WBC (Bld) 2.5 % Normal 0.9-7.0 [facility] Comment on above: Performed By: #### U MICRO, PREGU, ERUR #### [facility] [address] [place] [address] Dr. Adam Mejía Erythrocyte distribution width (RBC) [Ratio] 15.2 % Critically high 11.0-15.0 [facility] Comment on above: Performed By: #### U MICRO, PREGU, ERUR #### [facility] [address] [place] [address] Dr. Adam Mejía Hematocrit (Bld) [Volume fraction] 34.8 % Critically low 36.0-48.0 [facility] Comment on above: Performed By: #### U MICRO, PREGU, ERUR #### [facility] [address] [place] [address] Dr. Adam Mejía Hemoglobin (Bld) [Mass/Vol] 10.6 g/dL Critically low 12.0-16.0 [facility] Comment on above: Performed By: #### U MICRO, PREGU, ERUR #### [facility] [address] [address] [address] Adam Mejía IG # 0.02 10e3/ul Normal 0.00-0.03 [facility] Comment on above: Performed By: #### U MICRO, PREGU, ERUR #### [facility] [address] [place] [address] Dr. Adam Mejía IG % 0.2 % Normal 0.0-0.5 [facility] Comment on above: Performed By: #### U MICRO, PREGU, ERUR #### [facility] [address] [place] [address] Dr. Adam Mejía LYMPH # 2.1 103/ul Normal 1.2-3.8 [facility] Comment on above: Performed By: #### U MICRO, PREGU, ERUR #### [facility] [address] [place] [address] Dr. Adam Mejía Lymphocytes/100 WBC (Bld) 23.0 % Normal 20.5-60.0 [facility] Comment on above: Performed By: #### U MICRO, PREGU, ERUR #### [facility] [address] [place] [address] Dr. Adam Mejía MANUAL DIFF REQ NO Normal [facility] Comment on above: Performed By: #### U MICRO, PREGU, ERUR #### [facility] [address] [place] [address] Dr. Adam Mejía MCH (RBC) [Entitic mass] 22.5 pg Critically low 26.7-34.0 [facility] Comment on above: Performed By: #### U MICRO, PREGU, ERUR #### [facility] [address] [place] [address] Dr. Adam Mejía MCHC (RBC) [Mass/Vol] 30.5 g/dL Normal 29.9-35.2 [facility] Comment on above: Performed By: #### U MICRO, PREGU, ERUR #### [facility] [address] [place] [address] Dr. Adam Mejía MCV (RBC) [Entitic vol] 73.9 fL Critically low 81.0-99.0 [facility] Comment on above: Performed By: #### U MICRO, PREGU, ERUR #### [facility] [address] [place] [address] Dr. Adam Mejía MONO # 0.5 103/ul Normal 0.3-0.8 [facility] Comment on above: Performed By: #### U MICRO, PREGU, ERUR #### [facility] [address] [place] [address] Dr. Adma Mejía Monocytes/100 WBC (Bld) 5.8 % Normal 1.7-12.0 [facility] Comment on above: Performed By: #### U MICRO, PREGU, ERUR #### [facility] [address] [place] [address] Dr. Adam Mejía NEUT # 6.3 103/ul Normal 1.4-6.5 [facility] Comment on above: Performed By: #### U MICRO, PREGU, ERUR #### [facility] [address] [place] [address] Dr. Adam Mejía Neutrophils/100 WBC (Bld) 68.2 % Normal 43.0-75.0 [facility] Comment on above: Performed By: #### U MICRO, PREGU, ERUR #### [facility] [address] [place] [address] Dr. Adam Mejía Platelet mean volume (Bld) [Entitic vol] 11.8 fL Normal 9.5-13.5 [facility] Comment on above: Performed By: #### U MICRO, PREGU, ERUR #### [facility] [address] [place] [address] Dr. Adam Mejía PLT 250 103/ul Normal 150-450 [facility] Comment on above: Performed By: #### U MICRO, PREGU, ERUR #### [facility] [address] [place] [address] Dr. Adam Mejía RBC 4.71 106/ul Normal 4.20-5.40 [facility] Comment on above: Performed By: #### U MICRO, PREGU, ERUR #### [facility] [address] [address] [address] Adam Mejía WBC 9.2 103/ul Normal 4.0-11.0 [facility] Comment on above: Performed By: #### U MICRO, PREGU, ERUR #### [facility] [address] [address] [address] Adam Mejía ER URINE PROFILEon 3 Bilirubin Ql (U) Negative Normal NEGATIVE [facility] Comment on above: Performed By: #### U MICRO, PREGU, ERUR #### [facility] [address] [address] [address] Adam Mejía Clarity (U) CLEAR Normal CLEAR [facility] Comment on above: Performed By: #### U MICRO, PREGU, ERUR #### [facility] [address] [address] [address] Adam Mejía Color (U) LT. YELLOW Normal YELLOW [facility] Comment on above: Performed By: #### U MICRO, PREGU, ERUR #### [facility] [address] [address] [address] Adam PATELD A micrscopic examina tion will be performed if indicated. Normal [facility] Comment on above: Performed By: #### U MICRO, PREGU, ERUR #### [facility] [address] [address] [address] Adam Mejía Glucose Ql (U) Negative Normal NEGATIVE [facility] Comment on above: Performed By: #### U MICRO, PREGU, ERUR #### [facility] [address] [address] [address] Adam Mejía Hemoglobin Ql (U) SMALL Abnormal NEGATIVE [facility] Comment on above: Performed By: #### U MICRO, PREGU, ERUR #### [facility] [address] [address] [address] Adam Mejía Ketones Ql (U) Negative Normal NEGATIVE [facility] Comment on above: Performed By: #### U MICRO, PREGU, ERUR #### [facility] [address] [place] [address] Dr. Adam Mejía LEUKOCYTES Negative Normal NEGATIVE [facility] Comment on above: Performed By: #### U MICRO, PREGU, ERUR #### [facility] [address] [place] [address] Dr. Adam Mejía Nitrite Ql (U) Negative Normal NEGATIVE [facility] Comment on above: Performed By: #### U MICRO, PREGU, ERUR #### [facility] [address] [address] [address] Adam Mejía pH (U) 8.0 [pH] Normal 5-9 [facility] Comment on above: Performed By: #### U MICRO, PREGU, ERUR #### [facility] [address] [place] [address] Dr. Adam Mejía SPEC GRAVITY 1.010 Normal 1.005-<=1. 025 [facility] Comment on above: Performed By: #### U MICRO, PREGU, ERUR #### [facility] [address] [place] [address] Dr. Adam Mejía UA PROTEIN Negative Normal NEGATIVE/ TRACE [facility] Comment on above: Performed By: #### U MICRO, PREGU, ERUR #### [facility] [address] [place] [address] Dr. Adam Mejía UR MICRO IND INDICATED Normal [facility] Comment on above: Performed By: #### U MICRO, PREGU, ERUR #### [facility] [address] [place] [address] Dr. Adam Mejía Urobilinogen Qn (U) 1.0 {Brinda'U}/dL Normal 0.2 - 1. 0 [facility] Comment on above: Performed By: #### U MICRO, PREGU, ERUR #### [facility] [address] [place] [address] Dr. Adam Mejía LACTATE/LACTIC ACIDon 2022 Lactate [Moles/Vol] 0.5 mmol/L Normal 0.4-2.0 [facility] Comment on above: Performed By: #### U MICRO, PREGU, ERUR #### [facility] [address] [place] [address] Dr. Adam Mejía LIPASEon 12-07-2022 Lipase [Catalytic activity/Vol] 219.0 U/L Normal 73.0-393.0 [facility] Comment on above: Performed By: #### U MICRO, PREGU, ERUR #### [facility] [address] [place] [address] Dr. Adam Mejía LIVER PROFILEon 12-07-2022 Albumin [Mass/Vol] 3.7 g/dL Normal 3.4-5.0 [facility] Comment on above: Performed By: #### U MICRO, PREGU, ERUR #### [facility] [address] [place] [address] Dr. Adam Mejía Albumin/Globulin [Mass ratio] 1.1 {ratio} Normal [facility] Comment on above: Performed By: #### U MICRO, PREGU, ERUR #### [facility] [address] [place] [address] Dr. Adam Mejía ALP [Catalytic activity/Vol] 57 U/L Normal 46-116 [facility] Comment on above: Performed By: #### U MICRO, PREGU, ERUR #### [facility] [address] [place] [address] Dr. Adam Mejía ALT [Catalytic activity/Vol] 15 U/L Normal 14-59 [facility] Comment on above: Performed By: #### U MICRO, PREGU, ERUR #### [facility] [address] [place] [address] Dr. Adam Mejía AST [Catalytic activity/Vol] 13 U/L Critically low 15-37 [facility] Comment on above: Performed By: #### U MICRO, PREGU, ERUR #### [facility] [address] [place] [address] Dr. Adam Mejía BILI, CONJUGATED 0.2 mg/dL Normal 0.0-0.2 [facility] Comment on above: Performed By: #### U MICRO, PREGU, ERUR #### [facility] [address] [place] [address] Dr. Adam Mejía Bilirubin [Mass/Vol] 0.2 mg/dL Normal 0.2-1.0 [facility] Comment on above: Performed By: #### U MICRO, PREGU, ERUR #### [facility] [address] [address] [address] Adam Mejía Globulin (S) [Mass/Vol] 3.4 g/dL Normal [facility] Comment on above: Performed By: #### U MICRO, PREGU, ERUR #### [facility] [address] [address] [address] Adam Mejía Protein [Mass/Vol] 7.1 g/dL Normal 6.4-8.2 [facility] Comment on above: Performed By: #### U MICRO, PREGU, ERUR #### [facility] [address] [address] [address] Adam Mejía PROF CHEM 8 (BAS METB)on Anion gap [Moles/Vol] 12.0 mmol/L Normal [facility] Comment on above: Performed By: #### U MICRO, PREGU, ERUR #### [facility] [address] [address] [address] dAam Mejía Calcium [Mass/Vol] 8.8 mg/dL Normal 8.5-10.1 [facility] Comment on above: Performed By: #### U MICRO, PREGU, ERUR #### [facility] [address] [address] [address] Adam Mejía Chloride [Moles/Vol] 102 mmol/L Normal 98-107 [facility] Comment on above: Performed By: #### U MICRO, PREGU, ERUR #### [facility] [address] [address] [address] Adam Mejía CO2 [Moles/Vol] 26.9 mmol/L Normal 21.0-32.0 [facility] Comment on above: Performed By: #### U MICRO, PREGU, ERUR #### [facility] [address] [address] [address] Adam Mejía Creatinine [Mass/Vol] 0.75 mg/dL Normal 0.55-1.02 [facility] Comment on above: Performed By: #### U MICRO, PREGU, ERUR #### [facility] [address] [address] [address] Adam Mejía EGFR-AF SCOTTISH >60 Normal >=60 [facility] Comment on above: Performed By: #### U MICRO, PREGU, ERUR #### [facility] [address] [address] [address] Adam Mejía EGFR-NON AF SCOTTISH >60 Normal >=60 [facility] Comment on above: Performed By: #### U MICRO, PREGU, ERUR #### [facility] [address] [address] [address] Adam Mejía Glucose [Mass/Vol] 97 mg/dL Normal 74-106 [facility] Comment on above: Performed By: #### U MICRO, PREGU, ERUR #### [facility] [address] [place] [address] Dr. Adam Mejía Potassium [Moles/Vol] 3.9 mmol/L Normal 3.5-5.1 [facility] Comment on above: Performed By: #### U MICRO, PREGU, ERUR #### [facility] [address] [place] [address] Dr. Adam Mejía Sodium [Moles/Vol] 137 mmol/L Normal 136-145 [facility] Comment on above: Performed By: #### U MICRO, PREGU, ERUR #### [facility] [address] [address] [address] Adam Mejía Urea nitrogen [Mass/Vol] 13.0 mg/dL Normal 7.0-18.0 [facility] Comment on above: Performed By: #### U MICRO, PREGU, ERUR #### [facility] [address] [place] [address] Dr. Adam Mejía Urea nitrogen/Creatinine [Mass ratio] 17.3 mg/mg Normal [facility] Comment on above: Performed By: #### U MICRO, PREGU, ERUR #### [facility] [address] [place] [address] Dr. Adam Mejía URINE MICROSCOPIC ONLYon BACTERIA NONE SEEN Normal NONE SEEN [facility] Comment on above: Performed By: #### U MICRO, PREGU, ERUR #### [facility] [address] [address] [address] Adam Mejía Bacteria identified Cx Nom (U) NOT INDICATED Normal [facility] Comment on above: Performed By: #### U MICRO, PREGU, ERUR #### [facility] [address] [address] [address] Adam Mejía CAST NONE SEEN Normal NONE SEEN [facility] Comment on above: Performed By: #### U MICRO, PREGU, ERUR #### [facility] [address] [place] [address] Dr. Adam Mejía Crystals LM Nom (Urine sed) NONE SEEN Normal NONE SEEN [facility] Comment on above: Performed By: #### U MICRO, PREGU, ERUR #### [facility] [address] [place] [address] Dr. Adam Mejía Epithelial cells LM Ql (Urine sed) RARE Normal NONE SEEN /RARE [facility] Comment on above: Performed By: #### U MICRO, PREGU, ERUR #### [facility] [address] [place] [address] Dr. Adam Mejía MUCOUS NONE SEEN Normal NONE SEEN [facility] Comment on above: Performed By: #### U MICRO, PREGU, ERUR #### [facility] [address] [place] [address] Dr. Adam Mejía RBC 2-5 Abnormal 0-2 [facility] Comment on above: Performed By: #### U MICRO, PREGU, ERUR #### [facility] [address] [place] [address] Dr. Adam Mejía WBC NONE SEEN Normal NONE SEEN [facility] Comment on above: Performed By: #### U MICRO, PREGU, ERUR #### [facility] [address] [place] [address] Dr. Adam Mejía XR ABD FLAT UP_PA [...] by: LENI ANGEL Date: 2022-12-07 00:23 Normal [facility] US PELVIS TRANSVAGon 023 US [...] by: KALPESH FOWLER Date: 2022-11-29 11:27 Normal [facility] No Panel InformationOrdered By: Dayne Horton on 10-12-2022 25-Hydroxy Vitamin D Total 10.4 ng/mL 30-100 [facility] Comment on above: VITAMIN D STATUS 25( [place])VITAMIN D RANGE (ng/mL) Deficient <20 Insufficient 20 to <30Sufficient 30 to 100Reference: Pam MF,Abelardo NC, Cj GARZA, et al. Evaluation,treatment, and prevention of vitamin D deficiency; an Endocrine Society clinical practice guideline. JCEM. 2010; 96(7):1911-30. Serum or plasma thyroglobuli n antibody assay (units/volume)Ordered By: Dayne Horton on 10-12-2022 Thyroglobulin Ab Qn [IU]/mL 0.0-0.9 [facility] Comment on above: Thyroglobulin Antibo dy measured by [email or web address] at: CB - [facility] [address] [id number] Director: Alan Macias PhD, Phone: [phone] Serum or plasma thyroperoxid ase antibody assay (units/volume)Ordered By: Dayne Horton on 10-12-2022 TPO Ab Qn 11 [IU]/mL 0-34 [facility] Serum thyrotropin receptor a ntibody assay (units/volume)Ordered By: Dayne Horton on 10-12-2022 TSH receptor Ab Qn (S) <1.10 IU/L 0.00-1.75 [facility] Comment on above: Performed at: [address] [id number] Director: Artemio Guillen MD, Phone: [phone] TSH DL <= 0.005 mIU/L QnOrde red By: Dayne Horton on 10-12-2022 TSH Qn 0.06 m[IU]/L 0.45-5.33 [facility] Thyroxine (T4) free [Mass/vo lume] in Serum or PlasmaOrdered By: Dayne Horton on 10-12-2022 Free T4 [Mass/Vol] 1.02 ng/dL 0.61-1.[address] [facility] Triiodothyronine (T3) Free [ Mass/volume] in Serum or PlasmaOrdered By: Dayne Horton on 10-12-2022 Free T3 [Mass/Vol] 3.90 pg/mL 2.50-3.[address] [facility] Basophils Auto (Bld) [#/Vol] Ordered By: Kelly Hough on 10-03-2022 Basophils (Bld) [#/Vol] 0.0 10*3/uL 0.0-0.2 [facility] Basophils/100 WBC Auto (Bld) Ordered By: Kelly Hough on 10-03-2022 Basophils/100 WBC (Bld) 0.7 % . [facility] CT biopsyOrdered By: Kelly Ramos on 10-03-2022 Transferrin [Mass/Vol] 230 mg/dL 180-380 [facility] Eosinophils Auto (Bld) [#/Vo l]Ordered By: Kelly Hough on 10-03-2022 Eosinophils (Bld) [#/Vol] 0.1 10*3/uL 0.0-0.45 [facility] Eosinophils/100 WBC Auto (Bl d)Ordered By: Kelly Hough on 10-03-2022 Eosinophils/100 WBC (Bld) 2.4 % . [facility] Erythrocyte distribution wid th Auto (RBC) [Ratio]Ordered By: Kelly Hough on 10-03-2022 Erythrocyte distribution width (RBC) [Ratio] 15.2 % 11.9-15.3 [facility] Ferritin [Mass/volume] in Se rum or PlasmaOrdered By: Kelly Hough on 10-03-2022 Ferritin [Mass/Vol] 7.7 ng/mL 11-306.8 [facility] Hematocrit Auto (Bld) [Volum e fraction]Ordered By: Kelly Hough on 10-03-2022 Hematocrit (Bld) [Volume fraction] 31.2 % 34.0-46.4 [facility] Hemoglobin [Mass/volume] in BloodOrdered By: Kelly Hough on 10-03-2022 Hemoglobin (Bld) [Mass/Vol] 9.7 g/dL 11.8-15.4 [facility] Iron [Mass/volume] in Serum or PlasmaOrdered By: Kelly Hough on 10-03-2022 Iron [Mass/Vol] 96 ug/dL 40-150 [facility] Iron binding capacity [Mass/ volume] in Serum or PlasmaOrdered By: Kelly Hough on 10-03-2022 Iron binding capacity [Mass/Vol] 322 ug/dL 255-450 [facility] Iron saturation [Mass Fracti on] in Serum or PlasmaOrdered By: Kelly Hough on 10-03-2022 Iron saturation [Mass fraction] 29.8 % 20-50 [facility] Leukocytes [#/volume] correc delmer for nucleated erythrocytes in Blood by Automated counOrdered By: Kelly Hough on 10-03-2022 WBC corrected for nucl RBC Auto (Bld) [#/Vol] 5.6 10*3/uL 3.8-11.6 [facility] Lymphocytes Auto (Bld) [#/Vo l]Ordered By: Kelly Hough on 10-03-2022 Lymphocytes (Bld) [#/Vol] 1.7 10*3/uL 1.00-4.8 [facility] Lymphocytes/100 WBC Auto (Bl d)Ordered By: Kelly Hough on 10-03-2022 Lymphocytes/100 WBC (Bld) 30.9 % . [facility] MCH Auto (RBC) [Entitic mass ]Ordered By: Kelly Hough on 10-03-2022 MCH (RBC) [Entitic mass] 21.8 pg 24.7-34.3 [facility] MCHC Auto (RBC) [Mass/Vol]Or dered By: Kelly Hough on 10-03-2022 MCHC (RBC) [Mass/Vol] 31.2 g/dL 32.0-35.0 [facility] MCV Auto (RBC) [Entitic vol] Ordered By: Kelly Hough on 10-03-2022 MCV (RBC) [Entitic vol] 70.0 fL 80-100 [facility] Monocytes Auto (Bld) [#/Vol] Ordered By: Kelly Hough on 10-03-2022 Monocytes (Bld) [#/Vol] 0.4 10*3/uL 0.0-0.8 [facility] Monocytes/100 WBC Auto (Bld) Ordered By: Kelly Hough on 10-03-2022 Monocytes/100 WBC (Bld) 6.3 % . [facility] Neutrophils Auto (Bld) [#/Vo l]Ordered By: Kelly Hough on 10-03-2022 Neutrophils (Bld) [#/Vol] 3.4 10*3/uL 1.8-7.7 [facility] Neutrophils/100 WBC Auto (Bl d)Ordered By: Kelly Hough on 10-03-2022 Neutrophils/100 WBC (Bld) 59.7 % . [facility] Nucleated erythrocytes [Pres ence] in Blood by Automated countOrdered By: Kelly Hough on 10-03-2022 Nucleated RBC Auto Ql (Bld) 0.1 /100{WBC} 0-0.5 [facility] Platelet mean volume Auto (B ld) [Entitic vol]Ordered By: Kelly Hough on 10-03-2022 Platelet mean volume (Bld) [Entitic vol] 9.4 fL 6.3-10.7 [facility] Platelets Auto (Bld) [#/Vol] Ordered By: Kelly Hough on 10-03-2022 Platelets (Bld) [#/Vol] 226 10*3/uL 150-450 [facility] RBC Auto (Bld) [#/Vol]Ordere d By: Kelly Hough on 10-03-2022 RBC (Bld) [#/Vol] 4.46 10*6/uL 3.60-5.00 [facility] WBC Auto (Bld) [#/Vol]Ordere d By: Kelly Hough on 10-03-2022 WBC (Bld) [#/Vol] 5.6 10*3/uL 3.8-11.[address] [facility] Free thyroxine indexOrdered By: Yudelka Lopez on 10-02-2022 Free T4 index Calc [Mass/Vol] 2.8 1.2-4.9 [facility] No Panel InformationOrdered By: Yudelka Lopez on 10-02-2022 Free Thyroxine (T4) Direct 8.6 ug/dL 4.5-12.0 [facility] TSH DL <= 0.005 mIU/L QnOrde red By: Yudelka Lopez on 10-02-2022 TSH Qn 0.037 m[IU]/L 0.450-4.50 0 [facility] Triiodothyronine (T3) [Mass/ volume] in Serum or PlasmaOrdered By: Yudelka Lopez on 10-02-2022 T3 [Mass/Vol] 135 ng/dL 71-180 [facility] Comment on above: Performed at: [place] [id number] Director: Alan Macias PhD, Phone: [phone] Triiodothyronine (T3) resin uptake testOrdered By: Yudelka Lopez on 10-02-2022 T3RU 33 % 24-39 [facility] Activated partial thrombopla stin time (aPTT) in platelet poor plasma by coagulation aOrdered By: Jim Vega on 09-21-2022 aPTT Coag (PPP) [Time] 30.8 s 25.1-36.5 [facility] Albumin [Mass/volume] in Ser um or PlasmaOrdered By: Jim Vega on 09-21-2022 Albumin [Mass/Vol] 3.7 g/dL 3.2-5.[address] [facility] Automated erythrocytes count in urine sediment (number/area)Ordered By: Jim Vega on 09-21-2022 RBC Auto (Urine sed) [#/Area] 1-2 [HPF] 0-4 [facility] Automated leukocytes count i n urine sediment (number/area)Ordered By: Jim Vega on 09-21-2022 WBC Auto (Urine sed) [#/Area] 0-1 [HPF] 0-4 [facility] Basophils Auto (Bld) [#/Vol] Ordered By: Jim Vega on 09-21-2022 Basophils (Bld) [#/Vol] 0.0 10*3/uL 0.0-0.2 [facility] Basophils/100 WBC Auto (Bld) Ordered By: Jim Vega on 09-21-2022 Basophils/100 WBC (Bld) 0.5 % . [facility] Bilirubin Test strip Ql (U)O rdered By: Jim Vega on 09-21-2022 Bilirubin Ql (U) Negative Negative [facility] COVID CepheidOrdered By: Rahat Vega on 09-21-2022 SARS-CoV-2 (COVID-19) Ab IA Ql Negative Negative [facility] Comment on above: This is a duplicate [employer] Xpert Xpress CoV-2/Flu/RSV Plus RNA by RT-PCR result to be used for statistical tracking purpose only. SARS-CoV-2 (COVID-19) RNA HIRAM+probe Ql (Unsp spec) [facility] SARS-CoV-2 (COVID-19) RNA HIRAM+probe Ql (Unsp spec) [facility] Color Auto (U)Ordered By: Narinder Vega on 09-21-2022 Color (U) Yellow Yellow [facility] Creatinine and Glomerular fi ltration rate.predicted panel (S/P/Bld)Ordered By: Jim Vega on 09-21-2022 Creatinine [Mass/Vol] 0.79 mg/dL 0.44-1.03 [facility] Eosinophils Auto (Bld) [#/Vo l]Ordered By: Jim Vega on 09-21-2022 Eosinophils (Bld) [#/Vol] 0.1 10*3/uL 0.0-0.45 [facility] Eosinophils/100 WBC Auto (Bl d)Ordered By: Jim Vega on 09-21-2022 Eosinophils/100 WBC (Bld) 2.7 % . [facility] Erythrocyte distribution wid th Auto (RBC) [Ratio]Ordered By: Jim Vega on 09-21-2022 Erythrocyte distribution width (RBC) [Ratio] 15.6 % 11.9-15.3 [facility] Estimated glomerular filtrat ion rate (GFR) non- AmericanOrdered By: Jim Vega on 09-21-2022 GFR/1.73 sq M.predicted among non-blacks MDRD (S/P/Bld) [Vol rate/Area] > 60 mL/Min [facility] Globulin Calc (S) [Mass/Vol] Ordered By: Jim Vega on 09-21-2022 Globulin (S) [Mass/Vol] 3.3 g/dL [facility] HCG ( test) IA.rapi d Ql (U)Ordered By: Jim Vega on 09-21-2022 HCG ( test) Ql (U) Negative [facility] Hematocrit Auto (Bld) [Volum e fraction]Ordered By: Jim Vega on 09-21-2022 Hematocrit (Bld) [Volume fraction] 31.9 % 34.0-46.4 [facility] Hemoglobin [Mass/volume] in BloodOrdered By: Jim Vega on 09-21-2022 Hemoglobin (Bld) [Mass/Vol] 9.9 g/dL 11.8-15.4 [facility] Ketones Auto test strip (U) [Mass/Vol]Ordered By: Jim Vega on 09-21-2022 Ketones (U) [Mass/Vol] Negative [facility] - CoagulationOrde red By: Jim Vega on 09-21-2022 PT Coag (PPP) [Time] 13.3 s 9.0-12.9 [facility] Laboratory - UrinalysisOrder ed By: Jim Vega on 09-21-2022 Hyaline casts LM Ql (Urine sed) None seen [LPF] 0-8 [facility] Leukocytes [#/volume] correc delmer for nucleated erythrocytes in Blood by Automated counOrdered By: Jim Vega on 09-21-2022 WBC corrected for nucl RBC Auto (Bld) [#/Vol] 5.4 10*3/uL 3.8-11.6 [facility] Lymphocytes Auto (Bld) [#/Vo l]Ordered By: Jim Vega on 09-21-2022 Lymphocytes (Bld) [#/Vol] 1.4 10*3/uL 1.00-4.8 [facility] Lymphocytes/100 WBC Auto (Bl d)Ordered By: Jim Vega on 09-21-2022 Lymphocytes/100 WBC (Bld) 26.1 % . [facility] MCH Auto (RBC) [Entitic mass ]Ordered By: Jim Vega on 09-21-2022 MCH (RBC) [Entitic mass] 21.7 pg 24.7-34.3 [facility] MCHC Auto (RBC) [Mass/Vol]Or dered By: iJm Vega on 09-21-2022 MCHC (RBC) [Mass/Vol] 31.0 g/dL 32.0-35.0 [facility] MCV Auto (RBC) [Entitic vol] Ordered By: Jim Vega on 09-21-2022 MCV (RBC) [Entitic vol] 70.1 fL 80-100 [facility] Monocyte distribution width [Entitic volume] in Blood by AutomatedOrdered By: Jim Vega on 09-21-2022 Monocyte distribution width Auto (Bld) [Entitic vol] 15.00 % 0.00-20.00 [facility] Monocytes Auto (Bld) [#/Vol] Ordered By: Jim Vega on 09-21-2022 Monocytes (Bld) [#/Vol] 0.4 10*3/uL 0.0-0.8 [facility] Monocytes/100 WBC Auto (Bld) Ordered By: Jim Vega on 09-21-2022 Monocytes/100 WBC (Bld) 6.9 % . [facility] Neutrophils Auto (Bld) [#/Vo l]Ordered By: Jim Vega on 09-21-2022 Neutrophils (Bld) [#/Vol] 3.4 10*3/uL 1.8-7.7 [facility] Neutrophils/100 WBC Auto (Bl d)Ordered By: Jim Vega on 09-21-2022 Neutrophils/100 WBC (Bld) 63.8 % . [facility] Nitrite Test strip Ql (U)Ord ered By: Jim Vega on 09-21-2022 Nitrite Ql (U) Negative Negative [facility] No Panel InformationOrdered By: Jim Vega on 09-21-2022 D-Dimer Quantitative (PE/DVT) 205 ng/mL 0-243 [facility] Comment on above: The reference range for [...] conditions. Estimated GFR () > 60 mL/Min [facility] Comment on above: GFR estimated refere nce range: According to KDOQI guidelines, <60 ml/min/1.73m2 is sufficient to diagnose a patient with chronic kidney disease. Pharmacy Creatinine Clearance (Chem 96.49 [facility] Nucleated erythrocytes [Pres ence] in Blood by Automated countOrdered By: Jim Vega on 09-21-2022 Nucleated RBC Auto Ql (Bld) 0.4 /100{WBC} 0-0.5 [facility] Platelet mean volume Auto (B ld) [Entitic vol]Ordered By: Jim Vega on 09-21-2022 Platelet mean volume (Bld) [Entitic vol] 10.0 fL 6.3-10.7 [facility] Platelet poor plasma interna tional normalized ratio (INR) by coagulation assay (relatOrdered By: Jim Vega on 09-21-2022 INR Coag (PPP) [Relative time] 1.2 {INR} [facility] Comment on above: INR Therapeutic Rang e [...] 09-21-2022 Platelets (Bld) [#/Vol] 215 10*3/uL 150-450 [facility] Protein Auto test strip (U) [Mass/Vol]Ordered By: Jim Vega on 09-21-2022 Protein (U) [Mass/Vol] Negative Negative Fi [facility] Protein [Mass/volume] in Ser um or PlasmaOrdered By: Jim Vega 09-21-2022 Protein [Mass/Vol] 7.0 g/dL 6.1-7.[address] [facility] RBC Auto (Bld) [#/Vol]Ordere d By: Jim Vega on 09-21-2022 RBC (Bld) [#/Vol] 4.54 10*6/uL 3.60-5.00 [facility] Serum or plasma alanine keene otransferase measurement without P-5'-P (enzymatic activiOrdered By: iJm Vega on 09-21-2022 ALT No additional P-5'-P [Catalytic activity/Vol] 11 U/L 10-60 [facility] Serum or plasma albumin/glob ulin mass ratioOrdered By: Jim Vega on 09-21-2022 Albumin/Globulin [Mass ratio] 1.1 {ratio} [facility] Serum or plasma alkaline jared sphatase measurement (enzymatic activity/volume)Ordered By: Jim Vega on 09-21-2022 ALP [Catalytic activity/Vol] 47 U/L 32-92 [facility] Serum or plasma anion gap de terminationOrdered By: Jim Vega on 09-21-2022 Anion gap [Moles/Vol] 10.0 mmol/L 6.0-15.0 [facility] Serum or plasma aspartate am inotransferase measurement (enzymatic activity/volume)Ordered By: Jim Vega on 09-21-2022 AST [Catalytic activity/Vol] 13 U/L 10-42 [facility] Serum or plasma calcium marychuy urement (mass/volume)Ordered By: Jim Vega on 09-21-2022 Calcium [Mass/Vol] 8.9 mg/dL 8.2-10.[address] [facility] Serum or plasma chloride nemo surement (moles/volume)Ordered By: Jim Vega on 09-21-2022 Chloride [Moles/Vol] 105 mmol/L 95-114 [facility] Serum or plasma glucose marychuy urement (mass/volume)Ordered By: Jim Vega on 09-21-2022 Glucose [Mass/Vol] 114 mg/dL 70-[address] [facility] Comment on above: ADA recommended refe rence rangeRandom Glucose Reference Range is dependent on time and content of last meal. Glucose of more than 200 mg/dL in a nonstressed, ambulatory subject supports the diagnosis of Diabetes Mellitus. Serum or plasma potassium me asurement (moles/volume)Ordered By: Jim Vega on 09-21-2022 Potassium [Moles/Vol] 3.5 mmol/L 3.5-5.1 [facility] Serum or plasma sodium measu rement (moles/volume)Ordered By: Jim Vega on 09-21-2022 Sodium [Moles/Vol] 134 mmol/L 136-[address] [facility] Serum or plasma total biliru bin measurement (mass/volume)Ordered By: Jim Vega on 09-21-2022 Bilirubin [Mass/Vol] 0.5 mg/dL 0.3-1.2 [facility] Serum or plasma total carbon dioxide measurement (moles/volume)Ordered By: Jim Vega on 09-21-2022 CO2 [Moles/Vol] 22.5 mmol/L 22.0-30.0 [facility] Serum or plasma urea nitroge n measurement (mass/volume)Ordered By: Jim Vega on 09-21-2022 Urea nitrogen [Mass/Vol] 5 mg/dL 9-23 [facility] Specific gravity Auto test s trip (U) [Rel density]Ordered By: Jim Vega on 09-21-2022 Specific gravity (U) [Rel density] 1.004 1.001-1.03 0 [facility] Squamous epithelial cells de tection in urine sediment by light microscopyOrdered By: Jim Vega on 09-21-2022 Epithelial cells.squamous LM Ql (Urine sed) 0-1 [HPF] 0-2 [facility] TSH DL <= 0.005 mIU/L QnOrde red By: Jim Vega on 09-21-2022 TSH Qn 0.14 m[IU]/L 0.45-5.33 [facility] Thyroxine (T4) free [Mass/vo lume] in Serum or PlasmaOrdered By: Jim Vega on 09-21-2022 Free T4 [Mass/Vol] 1.30 ng/dL 0.61-1.[address] [facility] Troponin I.cardiac [Mass/vol ume] in Serum or Plasma by High sensitivity methodOrdered By: Jim Vega on 09-21-2022 Troponin I.cardiac High sensitivity method [Mass/Vol] < 3 pg/mL 0-15 [facility] Urine bacteria detection by automated methodOrdered By: Jim Vega on 09-21-2022 Bacteria Auto Ql (U) None seen None Seen [facility] Urine clarity by refractomet ry automatedOrdered By: Jim Vega on 09-21-2022 Clarity Refractometry automated (U) Clear Clear [facility] Urine glucose measurement by automated test strip (mass/volume)Ordered By: Jim Vega on 09-21-2022 Glucose Auto test strip (U) [Mass/Vol] Normal mg/dL Normal [facility] Urine hemoglobin detection b y automated test stripOrdered By: Jim Vega on 09-21-2022 Hemoglobin Auto test strip Ql (U) Trace Negative [facility] Urine leukocyte esterase det ection by automated test stripOrdered By: Jim Vega on 09-21-2022 Leukocyte esterase Auto test strip Ql (U) Negative Negative [facility] Urobilinogen Auto test strip (U) [Mass/Vol]Ordered By: Jim Vega on 09-21-2022 Urobilinogen (U) [Mass/Vol] Normal mg/dL Normal [facility] WBC Auto (Bld) [#/Vol]Ordere d By: Jim Vega on 09-21-2022 WBC (Bld) [#/Vol] 5.4 10*3/uL 3.8-11.[address] [facility] pH Auto test strip (U)Ordere d By: Jim Vega on 09-21-2022 pH (U) 7.0 [pH] 5.0-9.0 [facility] Anisocytosis LM Ql (Bld)Orde red By: Tejinder Peraza on 09-15-2022 Anisocytosis Ql (Bld) Slight [facility] Basophils Auto (Bld) [#/Vol] Ordered By: Tejinder Peraza on 09-15-2022 Basophils (Bld) [#/Vol] 0.0 10*3/uL 0.0-0.2 [facility] Basophils/100 WBC Auto (Bld) Ordered By: Tejinder Peraza on 09-15-2022 Basophils/100 WBC (Bld) 0.3 % . [facility] Eosinophils Auto (Bld) [#/Vo l]Ordered By: Tejinder Peraza on 09-15-2022 Eosinophils (Bld) [#/Vol] 0.1 10*3/uL 0.0-0.45 [facility] Eosinophils/100 WBC Auto (Bl d)Ordered By: Tejinder Peraza on 09-15-2022 Eosinophils/100 WBC (Bld) 1.2 % . [facility] Erythrocyte distribution wid th Auto (RBC) [Ratio]Ordered By: joellen Peraza on 09-15-2022 Erythrocyte distribution width (RBC) [Ratio] 15.2 % 11.9-15.3 [facility] Hematocrit Auto (Bld) [Volum e fraction]Ordered By: Tejinder Peraza on 09-15-2022 Hematocrit (Bld) [Volume fraction] 30.9 % 34.0-46.4 [facility] Hemoglobin [Mass/volume] in BloodOrdered By: Tejinder Peraza on 09-15-2022 Hemoglobin (Bld) [Mass/Vol] 9.6 g/dL 11.8-15.4 [facility] Hypochromia LM Ql (Bld)Order ed By: Tejinder Peraza on 09-15-2022 Hypochromia Ql (Bld) Slight [facility] Leukocytes [#/volume] correc delmer for nucleated erythrocytes in Blood by Automated counOrdered By: Tejinder Peraza on 09-15-2022 WBC corrected for nucl RBC Auto (Bld) [#/Vol] 7.5 10*3/uL 3.8-11.6 [facility] Lymphocytes Auto (Bld) [#/Vo l]Ordered By: Tejinder Peraza on 09-15-2022 Lymphocytes (Bld) [#/Vol] 1.7 10*3/uL 1.00-4.8 [facility] Lymphocytes/100 WBC Auto (Bl d)Ordered By: Tejinder Peraza on 09-15-2022 Lymphocytes/100 WBC (Bld) 22.2 % . [facility] MCH Auto (RBC) [Entitic mass ]Ordered By: Tejinder Peraza on 09-15-2022 MCH (RBC) [Entitic mass] 21.8 pg 24.7-34.3 [facility] MCHC Auto (RBC) [Mass/Vol]Or dered By: Tejinder Peraza on 09-15-2022 MCHC (RBC) [Mass/Vol] 31.1 g/dL 32.0-35.0 [facility] MCV Auto (RBC) [Entitic vol] Ordered By: Tejinder Peraza on 09-15-2022 MCV (RBC) [Entitic vol] 70.0 fL 80-100 [facility] Microcytes LM Ql (Bld)Ordere d By: Tejinder Peraza on 09-15-2022 Microcytes Ql (Bld) Slight [facility] Monocytes Auto (Bld) [#/Vol] Ordered By: Tejinder Peraza on 09-15-2022 Monocytes (Bld) [#/Vol] 0.4 10*3/uL 0.0-0.8 [facility] Monocytes/100 WBC Auto (Bld) Ordered By: Tejinder Peraza on 09-15-2022 Monocytes/100 WBC (Bld) 5.3 % . [facility] Neutrophils Auto (Bld) [#/Vo l]Ordered By: Tejinder Peraza on 09-15-2022 Neutrophils (Bld) [#/Vol] 5.3 10*3/uL 1.8-7.7 [facility] Neutrophils/100 WBC Auto (Bl d)Ordered By: Tejinder Peraza on 09-15-2022 Neutrophils/100 WBC (Bld) 71.0 % . [facility] No Panel InformationOrdered By: Tejinder Peraza on 09-15-2022 D-Dimer Quantitative (PE/DVT) 245 ng/mL 0-243 [facility] Comment on above: The reference range for [...] RBC Auto Ql (Bld) 0.1 /100{WBC} 0-0.5 [facility] Ovalocyte detectionOrdered B y: Tejinder Peraza on 09-15-2022 Ovalocytes LM Ql (Bld) [facility] Platelet adequacy [Presence] in Blood by Light microscopyOrdered By: Tejinder Peraza on 09-15-2022 Platelets LM Ql (Bld) Normal Normal Fir [facility] Platelet mean volume Auto (B ld) [Entitic vol]Ordered By: Tejinder Peraza on 09-15-2022 Platelet mean volume (Bld) [Entitic vol] 9.8 fL 6.3-10.7 [facility] Platelet morphology finding [Identifier] in BloodOrdered By: Tejinder Peraza on 09-15-2022 Platelet morphology finding Nom (Bld) Normal Normal [facility] Platelets Auto (Bld) [#/Vol] Ordered By: Tejinder Peraza on 09-15-2022 Platelets (Bld) [#/Vol] 212 10*3/uL 150-450 [facility] Poikilocytosis [Presence] in Blood by Light microscopyOrdered By: Tejinder Peraza on 09-15-2022 Poikilocytosis LM Ql (Bld) Slight [facility] Polychromasia [Presence] in Blood by Light microscopyOrdered By: Tejinder Peraza on 09-15-2022 Polychromasia LM Ql (Bld) Slight [facility] RBC Auto (Bld) [#/Vol]Ordere d By: Tejinder Peraza on 09-15-2022 RBC (Bld) [#/Vol] 4.42 10*6/uL 3.60-5.00 [facility] RBC morphologyOrdered By: Dhaval Peraza on 09-15-2022 RBC morphology finding Nom (Bld) N/A [facility] WBC Auto (Bld) [#/Vol]Ordere d By: Tejinder Peraza on 09-15-2022 WBC (Bld) [#/Vol] 7.5 10*3/uL 3.8-11.[address] [facility] AFP (TUMOR MARKER)on 022 AFP, Serum, Tumor Marker <1.8 Normal 0.0-4.7 [facility] Comment on above: Result Comment: [employer] Electrochemiluminescence Immunoassay (ECLIA) . Values obtained with different assay methods or kits cannot be used interchangeably. Results cannot be interpreted as absolute evidence of the presence or absence of malignant disease. . This test is not interpretable in females. Performed By: #### U MICROPARIU, ERUR #### [facility] [address] [place] [address] Dr. Adam Mejía CA 125on 08-06-2022 Cancer Antigen (CA) 125 29.7 U/mL Normal 0.0-38.1 [facility] Comment on above: Result Comment: [employer] Electrochemiluminescence Immunoassay (ECLIA) . Values obtained with different assay methods or kits cannot be used interchangeably. Results cannot be interpreted as absolute evidence of the presence or absence of malignant disease. Performed By: #### U MICROPARIU, ERUR #### [facility] [address] [address] [address] Adam Mejía CEAon 08-06-2022 CEA 0.9 ng/mL Normal 0.0-4.7 [facility] Comment on above: Result Comment: Nons mokers <3.9 Smokers <5.6 . [employer] Electrochemiluminescence Immunoassay (ECLIA) . Values obtained with different assay methods or kits cannot be used interchangeably. Results cannot be interpreted as absolute evidence of the presence or absence of malignant disease. Performed By: #### U MICRO PREGU, ERUR #### [facility] [address] [address] [address] Adam Mejía HCG QUANT TUMOR MARKERon HCG QNT TUMOR MARKER <1 Normal [facility] Comment on above: Result Comment: [...] developed and its performance characteristics determined by [employer]. It has not been cleared or approved by the Food and Drug Administration for use as a tumor marker. . This test is not interpretable as a tumor marker in females. Performed By: #### H CGTMOR #### [facility] [address] [place] [address] Dr. Adam Mejía LDHon 08-05-2022 LDH 164 U/L Normal 81-234 [facility] Comment on above: Performed By: #### U MICRO, PREGU, ERUR #### [facility] [address] [place] [address] Dr. Adam Mejía US PELVIS TRANSVAGon 022 [...] by: KALPESH FOWLER Date: 2022-07-29 06:26 Normal [facility] PAP ACOG PANEL 2: 30 to 65on 07-10-2022 . . Normal [facility] Comment on above: Result Comment: Perf ormed at: WB Performed By: #### [id number] #### [facility] [address] [address] [address] Adam Mejía Age Gdln ACOG Testing 30-65 Normal [facility] Comment on above: Performed By: #### [id number] #### [facility] [address] [address] [address] Adam Mejía DIAGNOSIS: Comment Normal [facility] Comment on above: Result Comment: NEGA TIVE FOR INTRAEPITHELIAL LESION OR MALIGNANCY. Performed at: WB Performed By: #### [id number] #### [facility] [address] [address] [address] Adam Mejía HPV Aptima Negative Normal Negative [facility] Comment on above: Result Comment: This nucleic acid amplification test detects fourteen high-risk HPV types (16,18,31,33,35,39,45,51,52,56,58,59,66,68) without differentiation. Performed at: =G Performed By: #### [id number] #### [facility] [address] [address] [address] Adam Mejía Methodology: Comment Normal [facility] Comment on above: Result Comment: This liquid based ThinPrep(R) pap test was screened with the use of an image guided system. Performed at: WB Performed By: #### [id number] #### [facility] [address] [address] [address] Adam Mejía Note: Comment Normal [facility] Comment on above: Result Comment: The Pap smear is a screening test designed to aid in the detection of premalignant and malignant conditions of the uterine cervix. It is not a diagnostic procedure and should not be used as the sole means of detecting cervical cancer. Both false-positive and false-negative reports do occur. . Performed at: WB Performed By: #### [id number] #### [facility] [address] [place] [address] Dr. Adam Mejía Performed by: Comment Normal [facility] Comment on above: Result Comment: Dat Choi, Factory Focus Technician (ASCP) Performed at: WB Performed By: #### [id number] #### [facility] [address] [place] [address] Dr. Adam Mejía Specimen adequacy: Comment Normal [facility] Comment on above: Result Comment: Sati sfactory for evaluation. No endocervical component is identified. Performed at: WB Performed By: #### [id number] #### [facility] [address] [place] [address] Dr. Adam Mejía CHLAMYDIA/GONOCOCCUS HIRAM (SW AB/URINE/PAPon 07-05-2022 Chlamydia trachomatis, HIRAM Negative Normal Negative [facility] Comment on above: Performed By: #### C T/NGNA #### [facility] [address] [place] [address] Dr. Adam Mejía Neisseria gonorrhoeae, HIRAM Negative Normal Negative [facility] Comment on above: Performed By: #### C T/NGNA #### [facility] [address] [place] [address] Dr. Adam Mejía VAGINITIS/VAGINOSIS DNA PROB [place] 07-05-2022 [place] species Positive Abnormal Negative [facility] Comment on above: Performed By: #### V AGINT #### [facility] [address] [place] [address] Dr. Adam Mejía Gardnerella vaginalis Positive Abnormal Negative [facility] Comment on above: Performed By: #### V AGINT #### [facility] [address] [place] [address] Dr. Adam Mejía Trichomonas vaginalis Negative Normal Negative [facility] Comment on above: Performed By: #### V AGINT #### [facility] [address] [place] [address] Dr. Adam Mejía Activated partial thrombopla stin time (aPTT) in platelet poor plasma by coagulation aOrdered By: Frank Silva on 07-04-2022 aPTT Coag (PPP) [Time] 30.9 s 25.1-36.5 [facility] Albumin [Mass/volume] in Ser um or PlasmaOrdered By: Frank Silva on 07-04-2022 Albumin [Mass/Vol] 3.6 g/dL 3.2-5.[address] [facility] Automated erythrocytes count in urine sediment (number/area)Ordered By: Frank Silva on 07-04-2022 RBC Auto (Urine sed) [#/Area] 3-4 [HPF] 0-4 [facility] Automated leukocytes count i n urine sediment (number/area)Ordered By: Frank Silva on 07-04-2022 WBC Auto (Urine sed) [#/Area] 0-1 [HPF] 0-4 [facility] Basophils Auto (Bld) [#/Vol] Ordered By: Frank Silva on 07-04-2022 Basophils (Bld) [#/Vol] 0.0 10*3/uL 0.0-0.2 [facility] Basophils/100 WBC Auto (Bld) Ordered By: Frank Silva on 07-04-2022 Basophils/100 WBC (Bld) 0.4 % . [facility] Bilirubin Test strip Ql (U)O rdered By: Frank Silva on 07-04-2022 Bilirubin Ql (U) Negative Negative [facility] Color Auto (U)Ordered By: Godfrey Silva on 07-04-2022 Color (U) Yellow Yellow [facility] Creatinine and Glomerular fi ltration rate.predicted panel (S/P/Bld)Ordered By: Frank Silva on 07-04-2022 Creatinine [Mass/Vol] 0.80 mg/dL 0.44-1.03 [facility] Direct bilirubin measurement Ordered By: Frank Silva on 07-04-2022 Bilirubin.direct [Mass/Vol] mg/dL 0.0-0.4 [facility] Eosinophils Auto (Bld) [#/Vo l]Ordered By: Frank Silva on 07-04-2022 Eosinophils (Bld) [#/Vol] 0.1 10*3/uL 0.0-0.45 [facility] Eosinophils/100 WBC Auto (Bl d)Ordered By: Frank Silva on 07-04-2022 Eosinophils/100 WBC (Bld) 1.2 % . [facility] Erythrocyte distribution wid th Auto (RBC) [Ratio]Ordered By: Frank Silva on 07-04-2022 Erythrocyte distribution width (RBC) [Ratio] 14.9 % 11.9-15.3 [facility] Estimated glomerular filtrat ion rate (GFR) non- AmericanOrdered By: Frank Silva on 07-04-2022 GFR/1.73 sq M.predicted among non-blacks MDRD (S/P/Bld) [Vol rate/Area] > 60 mL/Min [facility] Globulin Calc (S) [Mass/Vol] Ordered By: Frank Silva on 07-04-2022 Globulin (S) [Mass/Vol] 3.3 g/dL [facility] HCG ( test) IA.rapi d Ql (U)Ordered By: Frank Silva on 07-04-2022 HCG ( test) Ql (U) Negative [facility] Hematocrit Auto (Bld) [Volum e fraction]Ordered By: Frank Silva on 07-04-2022 Hematocrit (Bld) [Volume fraction] 32.0 % 34.0-46.4 [facility] Hemoglobin [Mass/volume] in BloodOrdered By: Frank Silva on 07-04-2022 Hemoglobin (Bld) [Mass/Vol] 9.7 g/dL 11.8-15.4 [facility] Ketones Auto test strip (U) [Mass/Vol]Ordered By: Frank Silva on 07-04-2022 Ketones (U) [Mass/Vol] Trace Negative [facility] Laboratory - Chemistry and C hemistry - challengeOrdered By: Frank Silva on 07-04-2022 Lipase [Catalytic activity/Vol] 43.0 U/L 22-51 [facility] Laboratory - CoagulationOrde red By: Frank Silva on 07-04-2022 PT Coag (PPP) [Time] 13.3 s 9.0-12.9 [facility] Laboratory - Hematology and Cell countsOrdered By: Frank Silva on 07-04-2022 Nucleated RBC/100 WBC (Bld) [Ratio] 0.1 % 0-0.5 [facility] Laboratory - UrinalysisOrder ed By: Frank Silva on 07-04-2022 Hyaline casts LM Ql (Urine sed) 0-8 [LPF] 0-8 [facility] Leukocytes [#/volume] in Blo od by Automated countOrdered By: Frank Silva on 07-04-2022 WBC (Bld) [#/Vol] 8.7 10*3/uL 4.5-11.[address] [facility] Lymphocytes Auto (Bld) [#/Vo l]Ordered By: Frank Silva on 07-04-2022 Lymphocytes (Bld) [#/Vol] 1.2 10*3/uL 1.00-4.8 [facility] Lymphocytes/100 WBC Auto (Bl d)Ordered By: Frank Silva on 07-04-2022 Lymphocytes/100 WBC (Bld) 14.2 % . [facility] MCH Auto (RBC) [Entitic mass ]Ordered By: Frank Silva on 07-04-2022 MCH (RBC) [Entitic mass] 21.4 pg 24.7-34.3 [facility] MCHC Auto (RBC) [Mass/Vol]Or dered By: Frank Silva on 07-04-2022 MCHC (RBC) [Mass/Vol] 30.4 g/dL 32.0-35.0 [facility] MCV Auto (RBC) [Entitic vol] Ordered By: Frank Silva on 07-04-2022 MCV (RBC) [Entitic vol] 70.4 fL 80-100 [facility] Monocytes Auto (Bld) [#/Vol] Ordered By: Frank Silva on 07-04-2022 Monocytes (Bld) [#/Vol] 0.4 10*3/uL 0.0-0.8 [facility] Monocytes/100 WBC Auto (Bld) Ordered By: Frank Silva on 07-04-2022 Monocytes/100 WBC (Bld) 5.0 % . [facility] Neutrophils Auto (Bld) [#/Vo l]Ordered By: Frank Silva on 07-04-2022 Neutrophils (Bld) [#/Vol] 6.9 10*3/uL 1.8-7.7 [facility] Neutrophils/100 WBC Auto (Bl d)Ordered By: Frank Silva on 07-04-2022 Neutrophils/100 WBC (Bld) 79.2 % . [facility] Nitrite Test strip Ql (U)Ord ered By: Frank Silva on 07-04-2022 Nitrite Ql (U) Negative Negative [facility] No Panel InformationOrdered By: Frank Silva on 07-04-2022 Estimated GFR () > 60 mL/Min [facility] Comment on above: GFR estimated refere nce range: According to KDOQI guidelines, <60 ml/min/1.73m2 is sufficient to diagnose a patient with chronic kidney disease. Pharmacy Creatinine Clearance (Chem 98.82 [facility] Platelet mean volume Auto (B ld) [Entitic vol]Ordered By: Frank Silva on 07-04-2022 Platelet mean volume (Bld) [Entitic vol] 9.5 fL 6.3-10.7 [facility] Platelet poor plasma interna tional normalized ratio (INR) by coagulation assay (relatOrdered By: Frank Silva on 07-04-2022 INR Coag (PPP) [Relative time] 1.2 {INR} [facility] Comment on above: INR Therapeutic Rang e [...] 07-04-2022 Platelets (Bld) [#/Vol] 258 10*3/uL 150-450 [facility] Protein Auto test strip (U) [Mass/Vol]Ordered By: Frank Silva on 07-04-2022 Protein (U) [Mass/Vol] Negative [facility] Protein [Mass/volume] in Ser um or PlasmaOrdered By: Frank Silva on 07-04-2022 Protein [Mass/Vol] 6.9 g/dL 6.1-7.[address] [facility] RBC Auto (Bld) [#/Vol]Ordere d By: Frank Silva on 07-04-2022 RBC (Bld) [#/Vol] 4.54 10*6/uL 3.60-5.00 [facility] Serum or plasma alanine keene otransferase measurement without P-5'-P (enzymatic activiOrdered By: Frank Silva on 07-04-2022 ALT No additional P-5'-P [Catalytic activity/Vol] 15 U/L [facility] Serum or plasma albumin/glob ulin mass ratioOrdered By: Frank Silva on 07-04-2022 Albumin/Globulin [Mass ratio] 1.1 {ratio} [facility] Serum or plasma alkaline jared sphatase measurement (enzymatic activity/volume)Ordered By: Frank Silva on 07-04-2022 ALP [Catalytic activity/Vol] 50 U/L 32-92 [facility] [facility] Serum or plasma anion gap de terminationOrdered By: Frank Silva on 07-04-2022 Anion gap [Moles/Vol] 11.7 mmol/L 6.0-15.0 [facility] Serum or plasma aspartate am inotransferase measurement (enzymatic activity/volume)Ordered By: Frank Silva on 07-04-2022 AST [Catalytic activity/Vol] 14 U/L [facility] Serum or plasma calcium marychuy urement (mass/volume)Ordered By: Frank Silva on 07-04-2022 Calcium [Mass/Vol] 8.9 mg/dL 8.2-10.[address] [facility] Serum or plasma chloride nemo surement (moles/volume)Ordered By: Frank Silva on 07-04-2022 Chloride [Moles/Vol] 105 mmol/L 95-114 [facility] Serum or plasma glucose marychuy urement (mass/volume)Ordered By: Frank Silva on 07-04-2022 Glucose [Mass/Vol] 97 mg/dL 70-[address] [facility] Comment on above: ADA recommended refe rence rangeRandom Glucose Reference Range is dependent on time and content of last meal. Glucose of more than 200 mg/dL in a nonstressed, ambulatory subject supports the diagnosis of Diabetes Mellitus. Serum or plasma non-glucuron idated bilirubin measurement (mass/volume)Ordered By: Frank Silva on 07-04-2022 Bilirubin.indirect [Mass/Vol] TNP [facility] Comment on above: Test not performed Serum or plasma potassium me asurement (moles/volume)Ordered By: Frank Silva on 07-04-2022 Potassium [Moles/Vol] 3.7 mmol/L 3.5-5.1 [facility] Serum or plasma sodium measu rement (moles/volume)Ordered By: Frank Silva on 07-04-2022 Sodium [Moles/Vol] 136 mmol/L 136-[address] [facility] Serum or plasma total biliru bin measurement (mass/volume)Ordered By: Frank Silva on 07-04-2022 Bilirubin [Mass/Vol] 0.5 mg/dL 0.3-1.2 [facility] Serum or plasma total carbon dioxide measurement (moles/volume)Ordered By: Frank Silva on 07-04-2022 CO2 [Moles/Vol] 23.0 mmol/L 22.0-30.0 [facility] Serum or plasma urea nitroge n measurement (mass/volume)Ordered By: Frank Silva on 07-04-2022 Urea nitrogen [Mass/Vol] 6 mg/dL 9-23 [facility] Specific gravity Auto test s trip (U) [Rel density]Ordered By: Frank Silva on 07-04-2022 Specific gravity (U) [Rel density] 1.010 1.001-1.03 0 [facility] Squamous epithelial cells de tection in urine sediment by light microscopyOrdered By: Frank Silva on 07-04-2022 Epithelial cells.squamous LM Ql (Urine sed) 0-1 [HPF] 0-2 [facility] Urine bacteria detection by automated methodOrdered By: Frank Silva on 07-04-2022 Bacteria Auto Ql (U) None seen None Seen [facility] Urine clarity by refractomet ry automatedOrdered By: Frank Silva on 07-04-2022 Clarity Refractometry automated (U) Clear Clear [facility] Urine glucose measurement by automated test strip (mass/volume)Ordered By: Frank Silva on 07-04-2022 Glucose Auto test strip (U) [Mass/Vol] Normal mg/dL Normal [facility] Urine hemoglobin detection b y automated test stripOrdered By: Frank Silva on 07-04-2022 Hemoglobin Auto test strip Ql (U) Trace Negative [facility] Urine leukocyte esterase det ection by automated test stripOrdered By: Frank Silva on 07-04-2022 Leukocyte esterase Auto test strip Ql (U) 1+ Negative [facility] Urobilinogen Auto test strip (U) [Mass/Vol]Ordered By: Frank Silva on 07-04-2022 Urobilinogen (U) [Mass/Vol] Normal mg/dL Normal [facility] pH Auto test strip (U)Ordere d By: Frank Silva on 07-04-2022 pH (U) 6.5 [pH] 5.0-9.0 [facility] Activated partial thrombopla stin time (aPTT) in platelet poor plasma by coagulation aOrdered By: Marvin Serrano on 06-01-2022 aPTT Coag (PPP) [Time] 30.4 s 25.1-36.5 [facility] Basophils Auto (Bld) [#/Vol] Ordered By: Marvin Serrano on 06-01-2022 Basophils (Bld) [#/Vol] 0.1 10*3/uL 0.0-0.2 [facility] Basophils/100 WBC Auto (Bld) Ordered By: Marvin Serrano on 06-01-2022 Basophils/100 WBC (Bld) 1.1 % . [facility] Bilirubin Test strip Ql (U)O rdered By: Marvin Serrano on 06-01-2022 Bilirubin Ql (U) Negative Negative [facility] Blood hemoglobin measurement (mass/volume)Ordered By: Marvin Serrano on 06-01-2022 Hemoglobin (Bld) [Mass/Vol] 10.1 g/dL 11.8-15.4 [facility] Blood leukocytes automated c ount (number/volume)Ordered By: Marvin Serrano on 06-01-2022 WBC (Bld) [#/Vol] 7.6 10*3/uL 4.5-11.[address] [facility] Body fluid albumin measureme nt (mass/volume)Ordered By: Marvin Serrano on 06-01-2022 Albumin (Body fld) [Mass/Vol] 3.7 g/dL 3.2-5.5 [facility] Color Auto (U)Ordered By: Dane Serrano on 06-01-2022 Color (U) Yellow Yellow [facility] Creatinine and Glomerular fi ltration rate.predicted panel (S/P/Bld)Ordered By: Marvin Serrano on 06-01-2022 Creatinine [Mass/Vol] 0.82 mg/dL 0.44-1.03 [facility] Eosinophils Auto (Bld) [#/Vo l]Ordered By: Marvin Serrano on 06-01-2022 Eosinophils (Bld) [#/Vol] 0.2 10*3/uL 0.0-0.45 [facility] Eosinophils/100 WBC Auto (Bl d)Ordered By: Marvin Serrano on 06-01-2022 Eosinophils/100 WBC (Bld) 2.4 % . [facility] Erythrocyte distribution wid th Auto (RBC) [Ratio]Ordered By: Marvin Serrano on 06-01-2022 Erythrocyte distribution width (RBC) [Ratio] 14.3 % 11.9-15.3 [facility] Estimated glomerular filtrat ion rate (GFR) non- AmericanOrdered By: Marvin Serrano on 06-01-2022 GFR/1.73 sq M.predicted among non-blacks MDRD (S/P/Bld) [Vol rate/Area] > 60 mL/Min [facility] Globulin Calc (S) [Mass/Vol] Ordered By: Marvin Serrano on 06-01-2022 Globulin (S) [Mass/Vol] 3.4 g/dL [facility] HCG ( test) IA.rapi d Ql (U)Ordered By: Marvin Serrano on 06-01-2022 HCG ( test) Ql (U) Negative [facility] Hematocrit Auto (Bld) [Volum e fraction]Ordered By: Marvin Serrano on 06-01-2022 Hematocrit (Bld) [Volume fraction] 32.2 % 34.0-46.4 [facility] Ketones Auto test strip (U) [Mass/Vol]Ordered By: Marvin Serrano on 06-01-2022 Ketones (U) [Mass/Vol] Negative [facility] - CoagulationOrde red By: Marvin Serrano on 06-01-2022 PT Coag (PPP) [Time] 12.4 s 9.0-12.9 [facility] Laboratory - Hematology and Cell countsOrdered By: Marvin Serrano on 06-01-2022 Nucleated RBC/100 WBC (Bld) [Ratio] 0.1 % 0-0.5 [facility] Lymphocytes Auto (Bld) [#/Vo l]Ordered By: Marvin Serrano on 06-01-2022 Lymphocytes (Bld) [#/Vol] 2.7 10*3/uL 1.00-4.8 [facility] Lymphocytes/100 WBC Auto (Bl d)Ordered By: Marvin Serrano on 06-01-2022 Lymphocytes/100 WBC (Bld) 35.8 % . [facility] MCH Auto (RBC) [Entitic mass ]Ordered By: Marvin Serrano on 06-01-2022 MCH (RBC) [Entitic mass] 22.0 pg 24.7-34.3 [facility] MCHC Auto (RBC) [Mass/Vol]Or dered By: Marvin Serrano on 06-01-2022 MCHC (RBC) [Mass/Vol] 31.3 g/dL 32.0-35.0 [facility] MCV Auto (RBC) [Entitic vol] Ordered By: Marvin Serrano on 06-01-2022 MCV (RBC) [Entitic vol] 70.4 fL 80-100 [facility] Monocytes Auto (Bld) [#/Vol] Ordered By: Marvin Serrano on 06-01-2022 Monocytes (Bld) [#/Vol] 0.5 10*3/uL 0.0-0.8 [facility] Monocytes/100 WBC Auto (Bld) Ordered By: Marvin Serrano on 06-01-2022 Monocytes/100 WBC (Bld) 7.1 % . [facility] Neutrophils Auto (Bld) [#/Vo l]Ordered By: Marvin Serrano on 06-01-2022 Neutrophils (Bld) [#/Vol] 4.1 10*3/uL 1.8-7.7 [facility] Neutrophils/100 WBC Auto (Bl d)Ordered By: Marvin Serrano on 06-01-2022 Neutrophils/100 WBC (Bld) 53.6 % . [facility] Nitrite Test strip Ql (U)Ord ered By: Marvin Serrano on 06-01-2022 Nitrite Ql (U) Negative Negative [facility] No Panel InformationOrdered By: Marvin Serrano on 06-01-2022 Estimated GFR () > 60 mL/Min [facility] Comment on above: GFR estimated refere nce range: According to KDOQI guidelines, <60 ml/min/1.73m2 is sufficient to diagnose a patient with chronic kidney disease. Pharmacy Creatinine Clearance (Chem 97.22 [facility] Platelet mean volume Auto (B ld) [Entitic vol]Ordered By: Marvin Serrano on 06-01-2022 Platelet mean volume (Bld) [Entitic vol] 9.9 fL 6.3-10.7 [facility] Platelet poor plasma interna tional normalized ratio (INR) by coagulation assay (relatOrdered By: Marvin Serrano on 06-01-2022 INR Coag (PPP) [Relative time] 1.1 {INR} [facility] Comment on above: INR Therapeutic Rang e [...] 06-01-2022 Platelets (Bld) [#/Vol] 218 10*3/uL 150-450 [facility] Protein Auto test strip (U) [Mass/Vol]Ordered By: Marvin Serrano on 06-01-2022 Protein (U) [Mass/Vol] Negative Negative Fi [facility] Protein [Mass/volume] in Ser um or PlasmaOrdered By: Marvin Serrano on 06-01-2022 Protein [Mass/Vol] 7.1 g/dL 6.1-7.[address] [facility] RBC Auto (Bld) [#/Vol]Ordere d By: Marvin Serrano on 06-01-2022 RBC (Bld) [#/Vol] 4.57 10*6/uL 3.60-5.00 [facility] Serum or plasma alanine keene otransferase measurement without P-5'-P (enzymatic activiOrdered By: Marvin Serrano on 06-01-2022 ALT No additional P-5'-P [Catalytic activity/Vol] 12 U/L 10-60 [facility] Serum or plasma albumin/glob ulin mass ratioOrdered By: Marvin Serrano on 06-01-2022 Albumin/Globulin [Mass ratio] 1.1 {ratio} [facility] Serum or plasma alkaline jared sphatase measurement (enzymatic activity/volume)Ordered By: Marvin Serrano on 06-01-2022 ALP [Catalytic activity/Vol] 46 U/L 32-92 [facility] Serum or plasma anion gap de terminationOrdered By: Marvin Serrano on 06-01-2022 Anion gap [Moles/Vol] 15.3 mmol/L 6.0-15.0 [facility] Serum or plasma aspartate am inotransferase measurement (enzymatic activity/volume)Ordered By: Marvin Serrano on 06-01-2022 AST [Catalytic activity/Vol] 13 U/L 10-42 [facility] Serum or plasma calcium marychuy urement (mass/volume)Ordered By: Marvin Serrano on 06-01-2022 Calcium [Mass/Vol] 9.1 mg/dL 8.2-10.[address] [facility] Serum or plasma chloride nemo surement (moles/volume)Ordered By: Marvin Serrano on 06-01-2022 Chloride [Moles/Vol] 103 mmol/L 95-114 [facility] Serum or plasma glucose marychuy urement (mass/volume)Ordered By: Marvin Serrano on 06-01-2022 Glucose [Mass/Vol] 113 mg/dL 70-[address] [facility] Comment on above: ADA recommended refe [...] on 06-01-2022 Potassium [Moles/Vol] 3.0 mmol/L 3.5-5.1 [facility] Serum or plasma sodium measu rement (moles/volume)Ordered By: Marvin Serrano on 06-01-2022 Sodium [Moles/Vol] 137 mmol/L 136-[address] [facility] Serum or plasma total biliru bin measurement (mass/volume)Ordered By: Marvin Serrano on 06-01-2022 Bilirubin [Mass/Vol] 0.4 mg/dL 0.3-1.2 [facility] Serum or plasma total carbon dioxide measurement (moles/volume)Ordered By: Marvin Serrano on 06-01-2022 CO2 [Moles/Vol] 21.7 mmol/L 22.0-30.0 [facility] Serum or plasma urea nitroge n measurement (mass/volume)Ordered By: Marvin Serrano on 06-01-2022 Urea nitrogen [Mass/Vol] 11 mg/dL 9-23 [facility] Specific gravity Auto test s trip (U) [Rel density]Ordered By: Marvin Serrano on 06-01-2022 Specific gravity (U) [Rel density] 1.003 1.001-1.03 0 [facility] Urine clarity by refractomet ry automatedOrdered By: Marvin Serrano on 06-01-2022 Clarity Refractometry automated (U) Clear Clear [facility] Urine glucose measurement by automated test strip (mass/volume)Ordered By: Marvin Serrano on 06-01-2022 Glucose Auto test strip (U) [Mass/Vol] Normal mg/dL Normal [facility] Urine hemoglobin detection b y automated test stripOrdered By: Marvin Serrano on 06-01-2022 Hemoglobin Auto test strip Ql (U) Negative Negative [facility] Urine leukocyte esterase det ection by automated test stripOrdered By: Marvin Serrano on 06-01-2022 Leukocyte esterase Auto test strip Ql (U) Negative Negative [facility] Urobilinogen Auto test strip (U) [Mass/Vol]Ordered By: Marvin Serrano on 06-01-2022 Urobilinogen (U) [Mass/Vol] Normal mg/dL Normal [facility] pH Auto test strip (U)Ordere d By: Marvin Serrano on 06-01-2022 pH (U) 7.0 [pH] 5.0-9.0 [facility] Office Visit (Oncology Surge ry)on 04-21-2022 Follow-up [...] need for her to return to her [employer] Dr. Pendleton for discussion of ongoing treatment. [...] hoursAbdominal wall (more content not included)... [facility] W CONon 04-19-20 CT ABD/PELV [...] Lenny TANNER Date: 2022-04-18 23:01 Normal [facility] ER URINE PROFILEon 2 Bilirubin Ql (U) Negative Normal NEGATIVE [facility] Comment on above: Performed By: #### U MICRO, PREGU, ERUR #### [facility] [address] [address] [address] Adam Mejía Clarity (U) CLEAR Normal CLEAR [facility] Comment on above: Performed By: #### U MICRO, PREGU, ERUR #### [facility] [address] [address] [address] Adam Mejía Color (U) YELLOW Normal YELLOW [facility] Comment on above: Performed By: #### U MICRO, PREGU, ERUR #### [facility] [address] [address] [address] Adam Mejía ERUAHD A micrscopic examina tion will be performed if indicated. Normal [facility] Comment on above: Performed By: #### U MICRO, PREGU, ERUR #### [facility] [address] [address] [address] Adam Mejía Glucose Ql (U) Negative Normal NEGATIVE [facility] Comment on above: Performed By: #### U MICRO, PREGU, ERUR #### [facility] [address] [address] [address] Adam Mejía Hemoglobin Ql (U) SMALL Abnormal NEGATIVE [facility] Comment on above: Performed By: #### U MICRO, PREGU, ERUR #### [facility] [address] [address] [address] Adam Mejía Ketones Ql (U) >=80 Abnormal NEGATIVE [facility] Comment on above: Performed By: #### U MICRO, PREGU, ERUR #### [facility] [address] [address] [address] Adam Mejía LEUKOCYTES Negative Normal NEGATIVE [facility] Comment on above: Performed By: #### U MICRO, PREGU, ERUR #### [facility] [address] [address] [address] Adam Mejía Nitrite Ql (U) Negative Normal NEGATIVE [facility] Comment on above: Performed By: #### U MICRO, PREGU, ERUR #### [facility] [address] [place] [address] Dr. Adam Mejía pH (U) 6.5 [pH] Normal 5-9 [facility] Comment on above: Performed By: #### U MICRO, PREGU, ERUR #### [facility] [address] [place] [address] Dr. Adam Mejía SPEC GRAVITY 1.015 Normal 1.005-<=1. 025 [facility] Comment on above: Performed By: #### U MICRO, PREGU, ERUR #### [facility] [address] [place] [address] Dr. Adam Mejía UA PROTEIN Negative Normal NEGATIVE/ TRACE [facility] Comment on above: Performed By: #### U MICRO, PREGU, ERUR #### [facility] [address] [place] [address] Dr. Adam Mejía UR MICRO IND INDICATED Normal [facility] Comment on above: Performed By: #### U MICRO, PREGU, ERUR #### [facility] [address] [place] [address] Dr. Adam Mejía Urobilinogen Qn (U) 0.2 {Brinda'U}/dL Normal 0.2 - 1. 0 [facility] Comment on above: Performed By: #### U MICRO, PREGU, ERUR #### [facility] [address] [place] [address] Dr. Adam Mejía URon 04-18-2022 , QUAL Negative Normal NEGATIVE [facility] Comment on above: Performed By: #### U MICRO, PREGU, ERUR #### [facility] [address] [place] [address] Dr. Adam Mejía URINE MICROSCOPIC ONLYon BACTERIA TRACE Abnormal NONE SEEN [facility] Comment on above: Performed By: #### U MICRO, PREGU, ERUR #### [facility] [address] [address] [address] Adam Mejía Bacteria identified Cx Nom (U) NOT INDICATED Normal [facility] Comment on above: Performed By: #### U MICRO, PREGU, ERUR #### [facility] [address] [place] [address] Dr. Adam Mejía CAST NONE SEEN Normal NONE SEEN [facility] Comment on above: Performed By: #### U MICRO, PREGU, ERUR #### [facility] [address] [address] [address] Adam Mejía Crystals LM Nom (Urine sed) NONE SEEN Normal NONE SEEN [facility] Comment on above: Performed By: #### U MICRO, PREGU, ERUR #### [facility] [address] [place] [address] Dr. Adam Mejía Epithelial cells LM Ql (Urine sed) FEW Abnormal NONE SEEN /RARE [facility] Comment on above: Performed By: #### U MICRO, PREGU, ERUR #### [facility] [address] [place] [address] Dr. Adam Mejía MUCOUS NONE SEEN Normal NONE SEEN [facility] Comment on above: Performed By: #### U MICRO, PREGU, ERUR #### [facility] [address] [place] [address] Dr. Adam Mejía RBC 0-2 Normal 0-2 [facility] Comment on above: Performed By: #### U MICRO, PREGU, ERUR #### [facility] [address] [place] [address] Dr. Adam Mejía WBC 0-2 Abnormal NONE SEEN [facility] Comment on above: Performed By: #### U MICRO, PREGU, ERUR #### [facility] [address] [place] [address] Dr. Adam Mejía Body fluid albumin measureme nt (mass/volume)Ordered By: Yudelka Lopez on 04-14-2022 Albumin (Body fld) [Mass/Vol] 3.9 g/dL 3.2-5.5 [facility] Creatinine and Glomerular fi ltration rate.predicted panel (S/P/Bld)Ordered By: Yudelka Lopez on 04-14-2022 Creatinine [Mass/Vol] 0.77 mg/dL 0.44-1.03 [facility] Estimated glomerular filtrat ion rate (GFR) non- AmericanOrdered By: Yudelka Lopez on 04-14-2022 GFR/1.73 sq M.predicted among non-blacks MDRD (S/P/Bld) [Vol rate/Area] > 60 mL/Min [facility] Globulin Calc (S) [Mass/Vol] Ordered By: Yudelka Lopez on 04-14-2022 Globulin (S) [Mass/Vol] 3.0 g/dL [facility] No Panel InformationOrdered By: Yudelka Lopez on 04-14-2022 Estimated GFR () > 60 mL/Min [facility] Comment on above: GFR estimated refere nce range: According to KDOQI guidelines, <60 ml/min/1.73m2 is sufficient to diagnose a patient with chronic kidney disease. Pharmacy Creatinine Clearance (Chem N/A [facility] Protein [Mass/volume] in Ser um or PlasmaOrdered By: Yudelka Lopez on 04-14-2022 Protein [Mass/Vol] 6.9 g/dL 6.1-7.[address] [facility] Serum or plasma alanine keene otransferase measurement without P-5'-P (enzymatic activiOrdered By: Yudelka Lopez on 04-14-2022 ALT No additional P-5'-P [Catalytic activity/Vol] 13 U/L 10-60 [facility] Serum or plasma albumin/glob ulin mass ratioOrdered By: Yudelka Lopez on 04-14-2022 Albumin/Globulin [Mass ratio] 1.3 {ratio} [facility] Serum or plasma alkaline jared sphatase measurement (enzymatic activity/volume)Ordered By: Yudelka Lopez on 04-14-2022 ALP [Catalytic activity/Vol] 44 U/L 32-92 [facility] Serum or plasma aspartate am inotransferase measurement (enzymatic activity/volume)Ordered By: Yudelka Lopez on 04-14-2022 AST [Catalytic activity/Vol] 14 U/L 10-42 [facility] Serum or plasma calcium marychuy urement (mass/volume)Ordered By: Yudelka Lopez on 04-14-2022 Calcium [Mass/Vol] 9.5 mg/dL 8.2-10.[address] [facility] Serum or plasma chloride nemo surement (moles/volume)Ordered By: Yudelka Lopez on 04-14-2022 Chloride [Moles/Vol] 104 mmol/L 95-114 [facility] Serum or plasma glucose marychuy urement (mass/volume)Ordered By: Yudelka Lopez on 04-14-2022 Glucose [Mass/Vol] 85 mg/dL 70-[address] [facility] Comment on above: ADA recommended refe [...] on 04-14-2022 Potassium [Moles/Vol] 4.2 mmol/L 3.5-5.1 [facility] Serum or plasma sodium measu rement (moles/volume)Ordered By: Yudelka Lopez on 04-14-2022 Sodium [Moles/Vol] 136 mmol/L 136-[address] [facility] Serum or plasma total biliru bin measurement (mass/volume)Ordered By: Yudelka Lopez on 04-14-2022 Bilirubin [Mass/Vol] 0.2 mg/dL 0.3-1.2 [facility] Serum or plasma total carbon dioxide measurement (moles/volume)Ordered By: Yudelka Lopez on 04-14-2022 CO2 [Moles/Vol] 24.5 mmol/L 22.0-30.0 [facility] Serum or plasma urea nitroge n measurement (mass/volume)Ordered By: Yudelka Lopez on 04-14-2022 Urea nitrogen [Mass/Vol] 6 mg/dL 9-23 [facility] AMYLASEon 04-11-2022 Amylase [Catalytic activity/Vol] 54 U/L Normal 25-115 [facility] Comment on above: Performed By: #### A MY, CMP, LIPA #### [facility] [address] [place] [address] Dr. Adam Mejía CBC AUTO DIFFon 04-11-2022 BASO # 0.0 103/ul Normal 0.0-0.1 [facility] Comment on above: Performed By: #### C BC #### [facility] [address] [place] [address] Dr. Adam Mejía Basophils/100 WBC (Bld) 0.2 % Normal 0.2-2.0 [facility] Comment on above: Performed By: #### C BC #### [facility] [address] [place] [address] Dr. Adam Mejía EO # 0.1 103/ul Normal 0.0-0.7 [facility] Comment on above: Performed By: #### C BC #### [facility] [address] [place] [address] Dr. Adam Mejía Eosinophils/100 WBC (Bld) 0.6 % Critically low 0.9-7.0 [facility] Comment on above: Performed By: #### C BC #### [facility] [address] [place] [address] Dr. Adam Mejía Erythrocyte distribution width (RBC) [Ratio] 13.9 % Normal 11.0-15.0 [facility] Comment on above: Performed By: #### C BC #### [facility] [address] [place] [address] Dr. Adam Mejía Hematocrit (Bld) [Volume fraction] 31.4 % Critically low 36.0-48.0 [facility] Comment on above: Performed By: #### C BC #### [facility] [address] [place] [address] Dr. Adam Mejía Hemoglobin (Bld) [Mass/Vol] 9.8 g/dL Critically low 12.0-16.0 [facility] Comment on above: Performed By: #### C BC #### [facility] [address] [place] [address] Dr. Adam Mejía IG # 0.03 10e3/ul Normal 0.00-0.03 [facility] Comment on above: Performed By: #### C BC #### [facility] [address] [place] [address] Dr. Adam Mejía IG % 0.3 % Normal 0.0-0.5 [facility] Comment on above: Performed By: #### C BC #### [facility] [address] [place] [address] Dr. Adam Mejía LYMPH # 1.1 103/ul Critically low 1.2-3.8 [facility] Comment on above: Performed By: #### C BC #### [facility] [address] [place] [address] Dr. Adam Mejía Lymphocytes/100 WBC (Bld) 9.3 % Critically low 20.5-60.0 [facility] Comment on above: Performed By: #### C BC #### [facility] [address] [place] [address] Dr. Adam Mejía MANUAL DIFF REQ NO Normal [facility] Comment on above: Performed By: #### C BC #### [facility] [address] [place] [address] Dr. Adam Mejía MCH (RBC) [Entitic mass] 22.5 pg Critically low 26.7-34.0 [facility] Comment on above: Performed By: #### C BC #### [facility] [address] [place] [address] Dr. Adam Mejía MCHC (RBC) [Mass/Vol] 31.2 g/dL Normal 29.9-35.2 [facility] Comment on above: Performed By: #### C BC #### [facility] [address] [place] [address] Dr. Adam Mejía MCV (RBC) [Entitic vol] 72.0 fL Critically low 81.0-99.0 [facility] Comment on above: Performed By: #### C BC #### [facility] [address] [place] [address] Dr. Adam Mejía MONO # 0.6 103/ul Normal 0.3-0.8 [facility] Comment on above: Performed By: #### C BC #### [facility] [address] [place] [address] Dr. Adam Mejía Monocytes/100 WBC (Bld) 4.6 % Normal 1.7-12.0 [facility] Comment on above: Performed By: #### C BC #### [facility] [address] [place] [address] Dr. Adam Mejía NEUT # 10.2 103/ul Critically high 1.4-6.5 [facility] Comment on above: Performed By: #### C BC #### [facility] [address] [place] [address] Dr. Adam Mejía Neutrophils/100 WBC (Bld) 85.0 % Critically high 43.0-75.0 [facility] Comment on above: Performed By: #### C BC #### [facility] [address] [place] [address] Dr. Adam Mejía Platelet mean volume (Bld) [Entitic vol] 12.1 fL Normal 9.5-13.5 [facility] Comment on above: Performed By: #### C BC #### [facility] [address] [place] [address] Dr. Adam Mejía PLT 270 103/ul Normal 150-450 [facility] Comment on above: Performed By: #### C BC #### [facility] [address] [place] [address] Dr. Adam Mejía RBC 4.36 106/ul Normal 4.20-5.40 [facility] Comment on above: Performed By: #### C BC #### [facility] [address] [place] [address] Dr. Adam Mejía WBC 12.0 103/ul Critically high 4.0-11.0 [facility] Comment on above: Performed By: #### C BC #### [facility] [address] [place] [address] ABD/PELV W CONon [...] NADIA MORROW Date: 2022-04-11 07:25 Normal [facility] LIPASEon 04-11-2022 Lipase [Catalytic activity/Vol] 152.0 U/L Normal 73.0-393.0 [facility] Comment on above: Performed By: #### A MY, CMP, LIPA #### [facility] [address] [address] [address] Adam Mejía PREG HCG QUALon 04-11-2022 , QUAL Negative Normal NEGATIVE [facility] Comment on above: Performed By: #### U MICRO, PREGU, ERUR #### [facility] [address] [address] [address] Adam Mejía PROF 14(COMP METB)on 022 Albumin [Mass/Vol] 3.8 g/dL Normal 3.4-5.0 [facility] Comment on above: Performed By: #### U MICRO, PREGU, ERUR #### [facility] [address] [address] [address] Adam Mejía Albumin/Globulin [Mass ratio] 0.9 {ratio} Normal [facility] Comment on above: Performed By: #### U MICRO, PREGU, ERUR #### [facility] [address] [place] [address] Dr. Adam Mejía ALP [Catalytic activity/Vol] 51 U/L Normal 46-116 [facility] Comment on above: Performed By: #### U MICRO, PREGU, ERUR #### [facility] [address] [place] [address] Dr. Adam Mejía ALT [Catalytic activity/Vol] 11 U/L Critically low 14-59 [facility] Comment on above: Performed By: #### U MICRO, PREGU, ERUR #### [facility] [address] [place] [address] Dr. Adam Mejía Anion gap [Moles/Vol] 11.9 mmol/L Normal [facility] Comment on above: Performed By: #### U MICRO, PREGU, ERUR #### [facility] [address] [place] [address] Dr. Adam Mejía AST [Catalytic activity/Vol] 14 U/L Critically low 15-37 [facility] Comment on above: Performed By: #### U MICRO, PREGU, ERUR #### [facility] [address] [place] [address] Dr. Adam Mejía Bilirubin [Mass/Vol] 0.4 mg/dL Normal 0.2-1.0 [facility] Comment on above: Performed By: #### U MICRO, PREGU, ERUR #### [facility] [address] [place] [address] Dr. Adam Mejía Calcium [Mass/Vol] 9.4 mg/dL Normal 8.5-10.1 [facility] Comment on above: Performed By: #### U MICRO, PREGU, ERUR #### [facility] [address] [place] [address] Dr. Adam Mejía Chloride [Moles/Vol] 104 mmol/L Normal 98-107 [facility] Comment on above: Performed By: #### U MICRO, PREGU, ERUR #### [facility] [address] [address] [address] Adam Mejía CO2 [Moles/Vol] 26.1 mmol/L Normal 21.0-32.0 [facility] Comment on above: Performed By: #### U MICRO, PREGU, ERUR #### [facility] [address] [address] [address] Adam Mejía Creatinine [Mass/Vol] 0.78 mg/dL Normal 0.55-1.02 [facility] Comment on above: Performed By: #### U MICRO, PREGU, ERUR #### [facility] [address] [address] [address] Adam Mejía EGFR-AF SCOTTISH >60 Normal >=60 [facility] Comment on above: Performed By: #### U MICRO, PREGU, ERUR #### [facility] [address] [address] [address] Adam Mejía EGFR-NON AF SCOTTISH >60 Normal >=60 [facility] Comment on above: Performed By: #### U MICRO, PREGU, ERUR #### [facility] [address] [address] [address] Adam Mejía Globulin (S) [Mass/Vol] 4.1 g/dL Normal [facility] Comment on above: Performed By: #### U MICRO, PREGU, ERUR #### [facility] [address] [address] [address] Adam Mejía Glucose [Mass/Vol] 111 mg/dL Critically high 74-106 T [facility] Comment on above: Performed By: #### U MICRO, PREGU, ERUR #### [facility] [address] [address] [address] Adam Mejía Potassium [Moles/Vol] 4.0 mmol/L Normal 3.5-5.1 [facility] Comment on above: Performed By: #### U MICRO, PREGU, ERUR #### [facility] [address] [address] [address] Adam Mejía Protein [Mass/Vol] 7.9 g/dL Normal 6.4-8.2 [facility] Comment on above: Performed By: #### U MICRO, PREGU, ERUR #### [facility] [address] [address] [address] Adam Mejía Sodium [Moles/Vol] 138 mmol/L Normal 136-145 [facility] Comment on above: Performed By: #### U MICRO, PREGU, ERUR #### [facility] [address] [address] [address] Adam Mejía Urea nitrogen [Mass/Vol] 10.0 mg/dL Normal 7.0-18.0 [facility] Comment on above: Performed By: #### U MICRO, PREGU, ERUR #### [facility] [address] [address] [address] Adam Mejía Urea nitrogen/Creatinine [Mass ratio] 12.8 mg/mg Normal [facility] Comment on above: Performed By: #### U MICRO, PREGU, ERUR #### [facility] [address] [address] [address] Adam Mejía XR ABD FLAT UP_PA [...] NADIA MORROW Date: 2022-04-11 06:26 Normal [facility] Blood Pressure Cuff Sizeon 0 04-07-2022 Tobacco use status [facility] b[facility] Office Visit (Oncology Surge ry)on 04-07-2022 Follow-up visit Diagnoses/Problems Assessed Abdominal wall mass (789.30) (R22.2) Orders Abdominal wall mass Continue: Ondansetron [...] return. The patient will return to her WEBLOGIC DEVELOPER Dr. Pendleton for discussion of ongoing treatment. [...] aPTT Coag (PPP) [Time] 29.4 s 25.1-36.5 [facility] Albumin [Mass/volume] in Ser um or PlasmaOrdered By: Frank Silva on 04-04-2022 Albumin [Mass/Vol] 3.6 g/dL 3.2-5.[address] [facility] Automated erythrocytes count in urine sediment (number/area)Ordered By: Janette Dior on 04-04-2022 RBC Auto (Urine sed) [#/Area] 20-49 [HPF] 0-4 [facility] Automated leukocytes count i n urine sediment (number/area)Ordered By: Janette Dior on 04-04-2022 WBC Auto (Urine sed) [#/Area] 10-19 [HPF] 0-4 [facility] Basophils Auto (Bld) [#/Vol] Ordered By: Frank Silva on 04-04-2022 Basophils (Bld) [#/Vol] 0.0 10*3/uL 0.0-0.2 [facility] Basophils/100 WBC Auto (Bld) Ordered By: Frank Silva on 04-04-2022 Basophils/100 WBC (Bld) 0.4 % . [facility] Bilirubin Test strip Ql (U)O rdered By: Janette Dior on 04-04-2022 Bilirubin Ql (U) Negative Negative [facility] Blood hemoglobin measurement (mass/volume)Ordered By: Frank Silva on 04-04-2022 Hemoglobin (Bld) [Mass/Vol] 10.0 g/dL 11.8-15.4 [facility] Blood leukocytes automated c ount (number/volume)Ordered By: Frank Silva on 04-04-2022 WBC (Bld) [#/Vol] 9.8 10*3/uL 4.5-11.[address] [facility] Color Auto (U)Ordered By: Anatoliy Dior on 04-04-2022 Color (U) Yellow Yellow [facility] Creatinine and Glomerular fi ltration rate.predicted panel (S/P/Bld)Ordered By: Frank Silva on 04-04-2022 Creatinine [Mass/Vol] 0.93 mg/dL 0.44-1.03 [facility] Eosinophils Auto (Bld) [#/Vo l]Ordered By: Frank Silva on 04-04-2022 Eosinophils (Bld) [#/Vol] 0.0 10*3/uL 0.0-0.45 [facility] Eosinophils/100 WBC Auto (Bl d)Ordered By: Frank Silva on 04-04-2022 Eosinophils/100 WBC (Bld) 0.3 % . [facility] Erythrocyte distribution wid th Auto (RBC) [Ratio]Ordered By: Frank Silva on 04-04-2022 Erythrocyte distribution width (RBC) [Ratio] 14.1 % 11.9-15.3 [facility] Estimated glomerular filtrat ion rate (GFR) non- AmericanOrdered By: Frank Silva on 04-04-2022 GFR/1.73 sq M.predicted among non-blacks MDRD (S/P/Bld) [Vol rate/Area] > 60 mL/Min [facility] Globulin Calc (S) [Mass/Vol] Ordered By: Frank Silva on 04-04-2022 Globulin (S) [Mass/Vol] 3.1 g/dL [facility] HCG ( test) IA.rapi d Ql (U)Ordered By: Janette Dior on 04-04-2022 HCG ( test) Ql (U) Negative [facility] HCG ( test) IA.rapi d Ql (U)Ordered By: Frank Silva on 04-04-2022 HCG ( test) Ql (U) Negative [facility] Hematocrit Auto (Bld) [Volum e fraction]Ordered By: Frank Silva on 04-04-2022 Hematocrit (Bld) [Volume fraction] 31.9 % 34.0-46.4 [facility] Ketones Auto test strip (U) [Mass/Vol]Ordered By: Janette Dior on 04-04-2022 Ketones (U) [Mass/Vol] 4+ Negative [facility] - Chemistry and C hemistry - challengeOrdered By: Frank Silva on 04-04-2022 Natriuretic peptide B (Bld) [Mass/Vol] 44.0 pg/mL 5-100 [facility] Laboratory - CoagulationOrde red By: Frank Silva on 04-04-2022 PT Coag (PPP) [Time] 14.0 s 9.0-12.9 [facility] Laboratory - Hematology and Cell countsOrdered By: Frank Silva on 04-04-2022 Nucleated RBC/100 WBC (Bld) [Ratio] 0.0 % 0-0.5 [facility] Laboratory - UrinalysisOrder ed By: Janette Dior on 04-04-2022 Hyaline casts LM Ql (Urine sed) 0-8 [LPF] 0-8 [facility] Lymphocytes Auto (Bld) [#/Vo l]Ordered By: Frank Silva on 04-04-2022 Lymphocytes (Bld) [#/Vol] 2.1 10*3/uL 1.00-4.8 [facility] Lymphocytes/100 WBC Auto (Bl d)Ordered By: Frank Silva on 04-04-2022 Lymphocytes/100 WBC (Bld) 21.5 % . [facility] MCH Auto (RBC) [Entitic mass ]Ordered By: Frank Silva on 04-04-2022 MCH (RBC) [Entitic mass] 22.2 pg 24.7-34.3 [facility] MCHC Auto (RBC) [Mass/Vol]Or dered By: Frank Silva on 04-04-2022 MCHC (RBC) [Mass/Vol] 31.2 g/dL 32.0-35.0 [facility] MCV Auto (RBC) [Entitic vol] Ordered By: Frank Silva on 04-04-2022 MCV (RBC) [Entitic vol] 71.2 fL 80-100 [facility] Monocytes Auto (Bld) [#/Vol] Ordered By: Frank Silva on 04-04-2022 Monocytes (Bld) [#/Vol] 0.7 10*3/uL 0.0-0.8 [facility] Monocytes/100 WBC Auto (Bld) Ordered By: Frank Silva on 04-04-2022 Monocytes/100 WBC (Bld) 6.9 % . [facility] Neutrophils Auto (Bld) [#/Vo l]Ordered By: Frank Silva on 04-04-2022 Neutrophils (Bld) [#/Vol] 7.0 10*3/uL 1.8-7.7 [facility] Neutrophils/100 WBC Auto (Bl d)Ordered By: Frank Silva on 04-04-2022 Neutrophils/100 WBC (Bld) 70.9 % . [facility] Nitrite Test strip Ql (U)Ord ered By: Janette Dior on 04-04-2022 Nitrite Ql (U) Negative Negative [facility] No Panel InformationOrdered By: Frank Silva on 04-04-2022 Estimated GFR () > 60 mL/Min [facility] Comment on above: GFR estimated refere nce range: According to KDOQI guidelines, <60 ml/min/1.73m2 is sufficient to diagnose a patient with chronic kidney disease. Pharmacy Creatinine Clearance (Chem 84.97 [facility] Platelet mean volume Auto (B ld) [Entitic vol]Ordered By: Frank Silva on 04-04-2022 Platelet mean volume (Bld) [Entitic vol] 9.6 fL 6.3-10.7 [facility] Platelet poor plasma interna tional normalized ratio (INR) by coagulation assay (relatOrdered By: Frank Silva on 04-04-2022 INR Coag (PPP) [Relative time] 1.2 {INR} [facility] Comment on above: INR Therapeutic Rang e [...] 04-04-2022 Platelets (Bld) [#/Vol] 224 10*3/uL 150-450 [facility] Protein Auto test strip (U) [Mass/Vol]Ordered By: Janette Dior on 04-04-2022 Protein (U) [Mass/Vol] Trace mg/dL Negative [facility] Protein [Mass/volume] in Ser um or PlasmaOrdered By: Frank Silva on 04-04-2022 Protein [Mass/Vol] 6.7 g/dL 6.1-7.[address] [facility] RBC Auto (Bld) [#/Vol]Ordere d By: Frank Silva on 04-04-2022 RBC (Bld) [#/Vol] 4.49 10*6/uL 3.60-5.00 [facility] Serum or plasma alanine keene otransferase measurement without P-5'-P (enzymatic activiOrdered By: Frank Silva on 04-04-2022 ALT No additional P-5'-P [Catalytic activity/Vol] 15 U/L 10-60 [facility] Serum or plasma albumin/glob ulin mass ratioOrdered By: Frank Silva on 04-04-2022 Albumin/Globulin [Mass ratio] 1.2 {ratio} [facility] Serum or plasma alkaline jared sphatase measurement (enzymatic activity/volume)Ordered By: Frank Silva on 04-04-2022 ALP [Catalytic activity/Vol] 48 U/L 32-92 [facility] Serum or plasma aspartate am inotransferase measurement (enzymatic activity/volume)Ordered By: Frank Silva on 04-04-2022 AST [Catalytic activity/Vol] 15 U/L 10-42 [facility] Serum or plasma calcium marychuy urement (mass/volume)Ordered By: Frank Silva on 04-04-2022 Calcium [Mass/Vol] 9.0 mg/dL 8.2-10.[address] [facility] Serum or plasma chloride nemo surement (moles/volume)Ordered By: Frank Silva on 04-04-2022 Chloride [Moles/Vol] 102 mmol/L 95-114 [facility] Serum or plasma glucose marychuy urement (mass/volume)Ordered By: Frank Silva on 04-04-2022 Glucose [Mass/Vol] 92 mg/dL 70-[address] [facility] Comment on above: ADA recommended refe rence range Random Glucose Reference Range is dependent on time and content of last meal. Glucose of more than 200 mg/dL in a nonstressed, ambulatory subject supports the diagnosis of Diabetes Mellitus. Serum or plasma potassium me asurement (moles/volume)Ordered By: Frank Silva on 04-04-2022 Potassium [Moles/Vol] 3.1 mmol/L 3.5-5.1 [facility] Serum or plasma sodium measu rement (moles/volume)Ordered By: Frank Silva on 04-04-2022 Sodium [Moles/Vol] 137 mmol/L 136-[address] [facility] Serum or plasma total biliru bin measurement (mass/volume)Ordered By: Frank Silva on 04-04-2022 Bilirubin [Mass/Vol] 0.7 mg/dL 0.3-1.2 [facility] Serum or plasma total carbon dioxide measurement (moles/volume)Ordered By: Frank Silva on 04-04-2022 CO2 [Moles/Vol] 23.6 mmol/L 22.0-30.0 [facility] Serum or plasma urea nitroge n measurement (mass/volume)Ordered By: Frank Silva on 04-04-2022 Urea nitrogen [Mass/Vol] 8 mg/dL 9-23 [facility] Specific gravity Auto test s trip (U) [Rel density]Ordered By: Janette Dior on 04-04-2022 Specific gravity (U) [Rel density] 1.027 1.001-1.03 0 [facility] Squamous epithelial cells de tection in urine sediment by light microscopyOrdered By: Janette Dior on 04-04-2022 Epithelial cells.squamous LM Ql (Urine sed) 10-19 [HPF] 0-2 [facility] Troponin I.cardiac [Mass/vol ume] in Serum or Plasma by High sensitivity methodOrdered By: Frank Silva on 04-04-2022 Troponin I.cardiac High sensitivity method [Mass/Vol] 3 pg/mL 0-15 [facility] Urine bacteria detection by automated methodOrdered By: Janette Dior on 04-04-2022 Bacteria Auto Ql (U) None seen None Seen [facility] Urine clarity by refractomet ry automatedOrdered By: Janette Dior on 04-04-2022 Clarity Refractometry automated (U) Cloudy Clear [facility] Urine glucose measurement by automated test strip (mass/volume)Ordered By: Janette Dior on 04-04-2022 Glucose Auto test strip (U) [Mass/Vol] Normal mg/dL Normal [facility] Urine hemoglobin detection b y automated test stripOrdered By: Janette Dior on 04-04-2022 Hemoglobin Auto test strip Ql (U) 2+ Negative [facility] Urine leukocyte esterase det ection by automated test stripOrdered By: Janette Dior on 04-04-2022 Leukocyte esterase Auto test strip Ql (U) Negative Negative [facility] Urine sediment renal epithel ial cell count by microscopy (number/high power field)Ordered By: Janette Dior on 04-04-2022 Epithelial cells.renal LM.HPF (Urine sed) [#/Area] None seen [HPF] 0-1 [facility] Urobilinogen Auto test strip (U) [Mass/Vol]Ordered By: Janette Dior on 04-04-2022 Urobilinogen (U) [Mass/Vol] Normal mg/dL Normal [facility] pH Auto test strip (U)Ordere d By: Janette Dior on 04-04-2022 pH (U) 6.0 [pH] 5.0-9.0 [facility] HCG,URINEon 04-03-2022 Beta HCG ( test) Ql (U) Negative Normal Negative [facility] Comment on above: Order Comment: poct Performed By: #### H CGU #### [facility] [id number] [place] [address] No Panel Informationon 04-03 [facility] Work Phone: Order Reconciliationon 04-03 Order [...] be shared with your follow-up providers (doctor, wheel truing machine tender, physical therapist, etc.). Follow Up with Dr. Crocker in [address] or operate motor vehicles for 24 hours and while taking narcotic pain me (more content not included)... Normal [facility] Surgical Pathology Depar tmenton 04-03-2022 [facility] Surgical Pathology Department Name LEANDRA FONSECA [...] reviewed this case. Diagnostic interpretation performed at [facility] [address] [place] [address] Clinical History: Physician Contact Number: [phone] Fixative (A): Formalin Clinical Diagnosis History LEFT [...] fibrous cut surfaces admixed with yellow adipose. 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 Summary of Cassettes: Specimen Label Site A 1-2 medial tip, full-thickness, bisected 3-4 lateral, full-thickness, bisected 5-7 lead generation representative sections of fibrous tissue to closest superior margin 8-10 lead generation representative sections of fibrous tissue to closest inferior margin mjr/04/06/2022 [facility] Department of Pathology [address] [place] [address] [place] [address] Normal [facility] Comment on above: Performed By: #### U [facility] #### [facility] Surgical Pathology Department [address] [facility] [address] Urine Teston 04-03 HCG ( test) Ql (U) Negative Negative [facility] 1285 Work Phone: COVID-19 Positive/NegativeOr dered By: Sly Crocker on 03-31-2022 SARS-CoV-2 (COVID-19) N gene HIRAM+probe Ql (Resp) Negative Negative [facility] Comment on above: Testing for SARS-CoV -2 by RT-PCR This test was developed and its performance characteristics determined by [employer] ([employer]) and validated at the [facility]. 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 (procedure may be cancelled if no commercial driver's license driver), insurance information, remove jewerly/piercings How to be AddressedAshley Spoken Language PreferredEnglish Source of Informationpatient Stated Reason for AdmissionLeft abdominal wall tumor resection Primary Contact Name and NumberRena Escalante [phone] Medications Brought to Hospitalno General Health: Weight in kg75.4 kilogram(s) Weight in yvq018.2 pound(s) Weight Methodactual (measured) Scale Typestanding Height [...] child(uriah) Living Arrangementshouse Resource/Environmental Concernsnone Anticipated Transition [facility] Services Anticipated at Transitionnone Tobacco Use: Tobacco Useno Pre-op Checklist: Arrival [id number] Arrival Time11:16 Procedure Typeabdominal wall tumor resection NPOyes Last Food [id number] 21:00 Last Clear Fluid [id number] 21:00 ID Band On Patientpatient ID (name), [...] Last Updated: 03-Apr-2022 11:57 by Aviva Galvez) [facility] Office Visit (Oncology Surge ry)on 03-24-2022 Follow-up visit Diagnoses/Problems Assessed Abdominal wall mass (789.30) (R22.2) *Orders Abdominal wall mass CORONAVIRUS 2019 RNA BY PCR, SCREEN ASYMPTOMATIC AMBULATORY; Status:Hold For - Specimen/Data Collection,Retrospective By Protocol Authorization; Requested for:[id number]; Abdominal wall mass (789.30) (R22.2) Patient Discussion/Summary [...] with thyroid problems Social history: Lives in [place] with her boyfriend. She has 2 children [...] Kim Isaac; (more content not included)... Normal [employer] Tobacco Screening.on 022 Fall risk assessment a) No falls within the last year [facility] Work Phone: Tobacco use status CPHS b) No [facility] Work Phone: Automated erythrocytes count in urine sediment (number/area)Ordered By: Jim Vega on 03-15-2022 RBC Auto (Urine sed) [#/Area] 5-9 [HPF] 0-4 [facility] Automated leukocytes count i n urine sediment (number/area)Ordered By: Jim Vega on 03-15-2022 WBC Auto (Urine sed) [#/Area] None seen [HPF] 0-4 [facility] Basophils Auto (Bld) [#/Vol] Ordered By: Jim Vega on 03-15-2022 Basophils (Bld) [#/Vol] 0.1 10*3/uL 0.0-0.2 [facility] Basophils/100 WBC Auto (Bld) Ordered By: Jim Vega on 03-15-2022 Basophils/100 WBC (Bld) 0.7 % . [facility] Bilirubin Test strip Ql (U)O rdered By: Jim Vega on 03-15-2022 Bilirubin Ql (U) Negative Negative [facility] Blood hemoglobin measurement (mass/volume)Ordered By: Jim Vega on 03-15-2022 Hemoglobin (Bld) [Mass/Vol] 9.9 g/dL 11.8-15.4 [facility] Blood leukocytes automated c ount (number/volume)Ordered By: Jim Vega on 03-15-2022 WBC (Bld) [#/Vol] 8.3 10*3/uL 4.5-11.[address] [facility] Body fluid albumin measureme nt (mass/volume)Ordered By: Jim Vega on 03-15-2022 Albumin (Body fld) [Mass/Vol] 3.7 g/dL 3.2-5.5 [facility] Color Auto (U)Ordered By: Narinder red Silvia on 03-15-2022 Color (U) Yellow Yellow [facility] Creatinine and Glomerular fi ltration rate.predicted panel (S/P/Bld)Ordered By: Jim Vega on 03-15-2022 Creatinine [Mass/Vol] 0.85 mg/dL 0.44-1.03 [facility] Eosinophils Auto (Bld) [#/Vo l]Ordered By: Jim Vega on 03-15-2022 Eosinophils (Bld) [#/Vol] 0.2 10*3/uL 0.0-0.45 [facility] Eosinophils/100 WBC Auto (Bl d)Ordered By: Jim Vega on 03-15-2022 Eosinophils/100 WBC (Bld) 2.0 % . [facility] Erythrocyte distribution wid th Auto (RBC) [Ratio]Ordered By: Jim Vega on 03-15-2022 Erythrocyte distribution width (RBC) [Ratio] 14.4 % 11.9-15.3 [facility] Estimated glomerular filtrat ion rate (GFR) non- AmericanOrdered By: Jim Vega on 03-15-2022 GFR/1.73 sq M.predicted among non-blacks MDRD (S/P/Bld) [Vol rate/Area] > 60 mL/Min [facility] Globulin Calc (S) [Mass/Vol] Ordered By: Jim Vega on 03-15-2022 Globulin (S) [Mass/Vol] 3.6 g/dL [facility] HCG ( test) IA.rapi d Ql (U)Ordered By: Jim Vega on 03-15-2022 HCG ( test) Ql (U) Negative [facility] Hematocrit Auto (Bld) [Volum e fraction]Ordered By: Jim Vega on 03-15-2022 Hematocrit (Bld) [Volume fraction] 31.8 % 34.0-46.4 [facility] Ketones Auto test strip (U) [Mass/Vol]Ordered By: Jim Vega on 03-15-2022 Ketones (U) [Mass/Vol] Negative Negative [facility] Laboratory - Chemistry and C hemistry - challengeOrdered By: Jim Vega on 03-15-2022 Lipase [Catalytic activity/Vol] 53.0 U/L 22-51 [facility] Natriuretic peptide B (Bld) [Mass/Vol] 13.0 pg/mL 5-100 [facility] Laboratory - Hematology and Cell countsOrdered By: Jim Vega on 03-15-2022 Nucleated RBC/100 WBC (Bld) [Ratio] 0.0 % 0-0.5 [facility] Laboratory - UrinalysisOrder ed By: Jim Vega on 03-15-2022 Hyaline casts LM Ql (Urine sed) None seen [LPF] 0-8 [facility] Lymphocytes Auto (Bld) [#/Vo l]Ordered By: Jim Vega on 03-15-2022 Lymphocytes (Bld) [#/Vol] 1.9 10*3/uL 1.00-4.8 [facility] Lymphocytes/100 WBC Auto (Bl d)Ordered By: Jim Vega on 03-15-2022 Lymphocytes/100 WBC (Bld) 22.9 % . [facility] MCH Auto (RBC) [Entitic mass ]Ordered By: Jim Vega on 03-15-2022 MCH (RBC) [Entitic mass] 22.2 pg 24.7-34.3 [facility] MCHC Auto (RBC) [Mass/Vol]Or dered By: Jim Vega on 03-15-2022 MCHC (RBC) [Mass/Vol] 31.2 g/dL 32.0-35.0 [facility] MCV Auto (RBC) [Entitic vol] Ordered By: Jim Vega on 03-15-2022 MCV (RBC) [Entitic vol] 71.1 fL 80-100 [facility] Monocytes Auto (Bld) [#/Vol] Ordered By: Jim Vega on 03-15-2022 Monocytes (Bld) [#/Vol] 0.6 10*3/uL 0.0-0.8 [facility] Monocytes/100 WBC Auto (Bld) Ordered By: Jim Vega on 03-15-2022 Monocytes/100 WBC (Bld) 6.9 % . [facility] Neutrophils Auto (Bld) [#/Vo l]Ordered By: Jim Vega on 03-15-2022 Neutrophils (Bld) [#/Vol] 5.6 10*3/uL 1.8-7.7 [facility] Neutrophils/100 WBC Auto (Bl d)Ordered By: Jim Vega on 03-15-2022 Neutrophils/100 WBC (Bld) 67.5 % . [facility] Nitrite Test strip Ql (U)Ord ered By: Jim Vega on 03-15-2022 Nitrite Ql (U) Negative Negative [facility] No Panel InformationOrdered By: Jim Vega on 03-15-2022 Estimated GFR () > 60 mL/Min [facility] Comment on above: GFR estimated refere nce range: According to KDOQI guidelines, <60 ml/min/1.73m2 is sufficient to diagnose a patient with chronic kidney disease. Pharmacy Creatinine Clearance (Chem 93.64 [facility] Platelet mean volume Auto (B ld) [Entitic vol]Ordered By: Jim Vega on 03-15-2022 Platelet mean volume (Bld) [Entitic vol] 9.4 fL 6.3-10.7 [facility] Platelets Auto (Bld) [#/Vol] Ordered By: Jim Vega on 03-15-2022 Platelets (Bld) [#/Vol] 254 10*3/uL 150-450 [facility] Protein Auto test strip (U) [Mass/Vol]Ordered By: Jim Vega on 03-15-2022 Protein (U) [Mass/Vol] Negative [facility] Protein [Mass/volume] in Ser um or PlasmaOrdered By: Jim Vega on 03-15-2022 Protein [Mass/Vol] 7.3 g/dL 6.1-7.[address] [facility] RBC Auto (Bld) [#/Vol]Ordere d By: Jim Vega on 03-15-2022 RBC (Bld) [#/Vol] 4.47 10*6/uL 3.60-5.00 [facility] Serum or plasma alanine keene otransferase measurement without P-5'-P (enzymatic activiOrdered By: Jim Vega on 03-15-2022 ALT No additional P-5'-P [Catalytic activity/Vol] 14 U/L 10-60 [facility] Serum or plasma albumin/glob ulin mass ratioOrdered By: Jim Vega on 03-15-2022 Albumin/Globulin [Mass ratio] 1.0 {ratio} [facility] Serum or plasma alkaline jared sphatase measurement (enzymatic activity/volume)Ordered By: Jim Vega on 03-15-2022 ALP [Catalytic activity/Vol] 45 U/L 32-92 [facility] Serum or plasma aspartate am inotransferase measurement (enzymatic activity/volume)Ordered By: Jim Vega on 03-15-2022 AST [Catalytic activity/Vol] 17 U/L 10-42 [facility] Serum or plasma calcium marychuy urement (mass/volume)Ordered By: Jim Vega on 03-15-2022 Calcium [Mass/Vol] 9.4 mg/dL 8.2-10.[address] [facility] Serum or plasma chloride nemo surement (moles/volume)Ordered By: Jim Vega on 03-15-2022 Chloride [Moles/Vol] 102 mmol/L 95-114 [facility] Serum or plasma glucose marychuy urement (mass/volume)Ordered By: Jim Vega on 03-15-2022 Glucose [Mass/Vol] 85 mg/dL 70-[address] [facility] Comment on above: ADA recommended refe rence range Random Glucose Reference Range is dependent on time and content of last meal. Glucose of more than 200 mg/dL in a nonstressed, ambulatory subject supports the diagnosis of Diabetes Mellitus. Serum or plasma potassium me asurement (moles/volume)Ordered By: Jim Vega on 03-15-2022 Potassium [Moles/Vol] 4.2 mmol/L 3.5-5.1 [facility] Serum or plasma sodium measu rement (moles/volume)Ordered By: Jim Vega on 03-15-2022 Sodium [Moles/Vol] 136 mmol/L 136-[address] [facility] Serum or plasma total biliru bin measurement (mass/volume)Ordered By: Jim Vega on 03-15-2022 Bilirubin [Mass/Vol] 0.1 mg/dL 0.3-1.2 [facility] Serum or plasma total carbon dioxide measurement (moles/volume)Ordered By: Jim Vega on 03-15-2022 CO2 [Moles/Vol] 26.3 mmol/L 22.0-30.0 [facility] Serum or plasma urea nitroge n measurement (mass/volume)Ordered By: Jim Vega on 03-15-2022 Urea nitrogen [Mass/Vol] 9 mg/dL 9-23 [facility] Specific gravity Auto test s trip (U) [Rel density]Ordered By: Jim Vega on 03-15-2022 Specific gravity (U) [Rel density] 1.010 1.001-1.03 0 [facility] Squamous epithelial cells de tection in urine sediment by light microscopyOrdered By: Jim Vega on 03-15-2022 Epithelial cells.squamous LM Ql (Urine sed) 0-1 [HPF] 0-2 [facility] Troponin I.cardiac [Mass/vol ume] in Serum or Plasma by High sensitivity methodOrdered By: Jim Veag on 03-15-2022 Troponin I.cardiac High sensitivity method [Mass/Vol] 3 pg/mL 0-15 [facility] Urine bacteria detection by automated methodOrdered By: Jim Vega on 03-15-2022 Bacteria Auto Ql (U) None seen None Seen [facility] Urine clarity by refractomet ry automatedOrdered By: Jim Vega on 03-15-2022 Clarity Refractometry automated (U) Clear Clear [facility] Urine glucose measurement by automated test strip (mass/volume)Ordered By: Jim Vega on 03-15-2022 Glucose Auto test strip (U) [Mass/Vol] Normal mg/dL Normal [facility] Urine hemoglobin detection b y automated test stripOrdered By: Jim Vega on 03-15-2022 Hemoglobin Auto test strip Ql (U) Trace Negative [facility] Urine leukocyte esterase det ection by automated test stripOrdered By: Jim Vega on 03-15-2022 Leukocyte esterase Auto test strip Ql (U) Negative Negative [facility] Urobilinogen Auto test strip (U) [Mass/Vol]Ordered By: Jim Vega on 03-15-2022 Urobilinogen (U) [Mass/Vol] Normal mg/dL Normal [facility] pH Auto test strip (U)Ordere d By: Jim Vega on 03-15-2022 pH (U) 7.5 [pH] 5.0-9.0 [facility] US FINE NEEDLE ASP EXPon US FINE NEEDLE ASP EXP Begin Addendu m #1 COLLECTED DATE/TIME: 02/20/2022 13:18 EST Final Diagnosis Report for [facility] [place] (A/B) MASS NEAR SCAR; FINE NEEDLE [...] 2. Pathology results are pending. Normal [facility] US SINGLE QUAD LT LOWERon [...] KALPESH FOWLER Date: 2022-02-02 09:33 Normal [facility] CT ABD/PELVIS WO CONon 01-11 [...] by: JENN GREWAL Date: 2022-01-11 11:40 Normal [facility] Vital Signs Date Time Vital Sign Value Performing Clinician Facility 02-11-2025 10:50-0400 Body mass index (BMI) [Ratio] 35.32 kg/m2 Priscilla SRIVASTAVA Work Phone: [facility] 02-11-2025 10:50-0400 Body weight 90.45 kg Priscilla SRIVASTAVA Work Phone: [facility] 02-11-2025 10:50-0400 Diastolic blood pressure 78 mm[Hg] Priscilla SRIVASTAVA Work Phone: [facility] 02-11-2025 10:50-0400 Systolic blood pressure 122 mm[Hg] Priscilla SRIVASTAVA Work Phone: [facility] 01-27-2025 08:57-0400 Body mass index (BMI) [Ratio] 35.25 kg/m2 Malcolm Helder DO Work Phone: [facility] 01-27-2025 08:57-0400 Body weight 90.27 kg Malcolm Helder DO Work Phone: [facility] 01-27-2025 08:57-0400 Diastolic blood pressure 78 mm[Hg] Malcolm Helder DO Work Phone: [facility] 01-27-2025 08:57-0400 Systolic blood pressure 128 mm[Hg] Malcolm Helder DO Work Phone: [facility] 01-14-2025 11:25-0400 Body mass index (BMI) [Ratio] 34.63 kg/m2 Reynold Mariama BILINGUAL TRAINER Work Phone: [facility] 01-14-2025 11:25-0400 Body weight 88.68 kg Reynold oJneserly BILINGUAL TRAINER Work Phone: [facility] 01-14-2025 11:25-0400 Diastolic blood pressure 66 mm[Hg] Reynold Mariama BILINGUAL TRAINER Work Phone: [facility] 01-14-2025 11:25-0400 Systolic blood pressure 102 mm[Hg] Reynold Mariama BILINGUAL TRAINER Work Phone: [facility] 12-30-2024 11:45-0400 Body mass index (BMI) [Ratio] 33.66 kg/m2 Malcolm Helder DO Work Phone: [facility] 12-30-2024 11:45-0400 Body weight 86.18 kg Malcolm Helder DO Work Phone: [facility] 12-30-2024 11:45-0400 Diastolic blood pressure 74 mm[Hg] Malcolm Helder DO Work Phone: [facility] 12-30-2024 11:45-0400 Systolic blood pressure 122 mm[Hg] Malcolm Helder DO Work Phone: [facility] 11-21-2024 09:53-0500 Body height 160 cm Henny Montgomery MD Work Phone: [facility] 11-21-2024 09:53-0500 Body mass index (BMI) [Ratio] 32.64 kg/m2 Henny Montgomery MD Work Phone: [facility] 11-21-2024 09:53-0500 Body weight 83.55 kg Henny Montgomery MD Work Phone: [facility] 11-21-2024 09:53-0500 Diastolic blood pressure 69 mm[Hg] Henny Montgomery MD Work Phone: [facility] 11-21-2024 09:53-0500 Heart rate 87 /min Henny Montgomery MD Work Phone: [facility] 11-21-2024 09:53-0500 Systolic blood pressure 113 mm[Hg] Henny Montgomery MD Work Phone: [facility] 11-10-2024 14:55-0500 Body height 157.48 cm Yudelka Lopez APRN Work Phone: [facility] 11-10-2024 14:55-0500 Body mass index (BMI) [Ratio] 33.6 kg/m2 Yudelka John HAASN Work Phone: [facility] 11-10-2024 14:55-0500 Body temperature 97.8 [degF] Yudelka Lopez APRN Work Phone: [facility] 11-10-2024 14:55-0500 Body weight 83.46 kg Yudelka John HAASN Work Phone: [facility] 11-10-2024 14:55-0500 Diastolic blood pressure 80 mm[Hg] Yudelka Lopez APRN Work Phone: [facility] 11-10-2024 14:55-0500 Heart rate 9 /min Yudelka Lopez APRN Work Phone: [facility] 11-10-2024 14:55-0500 Respiratory rate 16 /min Yudelka Lopez APRN Work Phone: [facility] 11-10-2024 14:55-0500 SaO2% (BldA) [Mass fraction] 99 % Yudelka John HAASN Work Phone: [facility] 11-10-2024 14:55-0500 Systolic blood pressure 121 mm[Hg] Yudelka John HASAN Work Phone: [facility] 11-04-2024 09:28-0500 Body mass index (BMI) [Ratio] 31.71 kg/m2 Malcolm Helder DO Work Phone: [facility] 11-04-2024 09:28-0500 Body weight 81.19 kg Malcolm Helder DO Work Phone: [facility] 11-04-2024 09:28-0500 Diastolic blood pressure 70 mm[Hg] Malcolm Helder DO Work Phone: [facility] 11-04-2024 09:28-0500 Systolic blood pressure 120 mm[Hg] Malcolm Helder DO Work Phone: [facility] 10-14-2024 11:37-0500 Body mass index (BMI) [Ratio] 30.08 kg/m2 Priscilla SRIVASTAVA Work Phone: [facility] 10-14-2024 11:37-0500 Body weight 77.02 kg Priscilla Kelvin PA Work Phone: [facility] 10-14-2024 11:37-0500 Diastolic blood pressure 66 mm[Hg] Priscilla Warren PA Work Phone: [facility] 10-14-2024 11:37-0500 Systolic blood pressure 124 mm[Hg] Priscilla Warren PA Work Phone: [facility] 09-11-2024 10:52-0500 Body mass index (BMI) [Ratio] 28.77 kg/m2 Malcolm Helder DO Work Phone: [facility] 09-11-2024 10:52-0500 Body weight 73.66 kg Malcolm Helder DO Work Phone: [facility] 09-11-2024 10:52-0500 Diastolic blood pressure 62 mm[Hg] Malcolm Helder DO Work Phone: [facility] 09-11-2024 10:52-0500 Systolic blood pressure 128 mm[Hg] Malcolm Helder DO Work Phone: [facility] 08-06-2024 23:53-0500 Diastolic blood pressure 68 mm[Hg] Yudelka Lopez APRN Work Phone: [facility] 08-06-2024 23:53-0500 Heart rate 75 /min Yudelka Lopez APRN Work Phone: [facility] 08-06-2024 23:53-0500 Respiratory rate 22 /min Yudelka John [employer] Work Phone: [facility] 08-06-2024 23:53-0500 SaO2% (BldA) [Mass fraction] 100 % Yudelka John [employer] Work Phone: [facility] 08-06-2024 23:53-0500 Systolic blood pressure 128 mm[Hg] Yudelka Lopez [employer]CR[employer] Work Phone: [facility] 08-06-2024 21:25-0500 Body height 157.48 cm Yudelka Lopez [employer]CR[employer]E [employer] Work Phone: [facility] 08-06-2024 21:25-0500 Body weight 74.3 kg Yudelka Lopez [employer]CR[employer]E [employer]ER Work Phone: [facility] 07-14-2024 15:03-0400 Diastolic blood pressure 75 mm[Hg] CONCRETE BLOCK LAYERFamilia Jha Lopez Work Phone: [facility] 07-14-2024 15:03-0400 Heart rate 71 /min [employer]CRETE BLOCK LAYERFamilia Jha John Work Phone: [facility] 07-14-2024 15:03-0400 Respiratory rate 18 /min [employer]CR[employer]E BLOCK LAYERFamilia Jha John Work Phone: [facility] 07-14-2024 15:03-0400 SaO2% (BldA) [Mass fraction] 99 % CONCRETE BLOCK LAYERFamilia Jha John Work Phone: [facility] 07-14-2024 15:03-0400 Systolic blood pressure 114 mm[Hg] CONCRETE BLOCK LAYERFamilia Jha John Work Phone: [facility] 07-14-2024 12:23-0400 Body height 157.48 cm BETTY Lopez Work Phone: [facility] 07-14-2024 12:17-0400 Body height 157.48 cm BETTY Jha Lopez Work Phone: [facility] 07-14-2024 12:17-0400 Body temperature 98.4 [degF] CONCRETE BLOCK LAYERFamilia Jha Lopez Work Phone: [facility] 07-14-2024 12:17-0400 Body weight 74 kg BETTY Lopez Work Phone: [facility] 07-14-2024 11:43-0400 Body height 157.48 cm [facility] 07-14-2024 11:43-0400 Body mass index (BMI) [Ratio] 29 kg/m2 [facility] 07-14-2024 11:43-0400 Body temperature 98.2 [degF] [facility] 07-14-2024 11:43-0400 Body weight 72.12 kg [facility] 07-14-2024 11:43-0400 Diastolic blood pressure 76 mm[Hg] [facility] 07-14-2024 11:43-0400 Heart rate 97 /min [facility] 07-14-2024 11:43-0400 SaO2% (BldA) [Mass fraction] 99 % [facility] 07-14-2024 11:43-0400 Systolic blood pressure 114 mm[Hg] [facility] 09-28-2023 14:34-0500 Body weight 73.93 kg [employer] Yudelka Lopez Work Phone: [facility] 09-28-2023 14:34-0500 Diastolic blood pressure 79 mm[Hg] [employer] Yudelka Lopez Work Phone: [facility] 09-28-2023 14:34-0500 Heart rate 66 /min [employer] Yudelka Lopez Work Phone: [facility] 09-28-2023 14:34-0500 Respiratory rate 20 /min [employer] Yudelka Lopez Work Phone: [facility] 09-28-2023 14:34-0500 SaO2% (BldA) [Mass fraction] 100 % [employer] Yudelka Lopez Work Phone: [facility] 09-28-2023 14:34-0500 Systolic blood pressure 119 mm[Hg] [employer] Yudelka Lopez Work Phone: [facility] 06-27-2023 10:33-0400 Body height 157.48 cm CONCRETE [employer]AY[employer] Yudelka Lopez Work Phone: [facility] 06-27-2023 10:33-0400 Body temperature 97.7 [degF] BETTY Lopez Work Phone: [facility] 06-27-2023 10:33-0400 Body weight 72.52 kg BETTY Lopez Work Phone: [facility] 06-27-2023 10:33-0400 Diastolic blood pressure 80 mm[Hg] BETTY Lopez Work Phone: [facility] 06-27-2023 10:33-0400 Heart rate 80 /min BETTY Lopez Work Phone: [facility] 06-27-2023 10:33-0400 Respiratory rate 20 /min BETTY Lopez Work Phone: [facility] 06-27-2023 10:33-0400 SaO2% (BldA) [Mass fraction] 100 % BETTY Lopez Work Phone: [facility] 06-27-2023 10:33-0400 Systolic blood pressure 120 mm[Hg] BETTY Lopez Work Phone: [facility] 06-04-2023 18:15-0400 Body height 157.48 cm Marvin Fontenot Other [employer] Other 06-04-2023 18:15-0400 Body mass index (BMI) [Ratio] 30.36 kg/m2 Marvin Fontenot Other [employer] Other 06-04-2023 18:15-0400 Body temperature 98.5 [degF] Marvin Fontenot Other [employer] Other 06-04-2023 18:15-0400 Body weight 75.3 kg Marvin Fontenot Other [employer] Other 06-04-2023 18:15-0400 Respiratory rate 20 /min Marvin Fontenot Other [facility] [employer] Other 06-04-2023 18:15-0400 SaO2% (BldA) [Mass fraction] 98 % Marvin Fontenot Other [email or web address] Other 03-21-2023 15:04-0400 Body weight 73.16 kg [employer]CRETE BLOCK LAYER Yudelka Lopez Work Phone: [facility] 03-21-2023 15:04-0400 Diastolic blood pressure 74 mm[Hg] [employer]CR[employer]E [employer] Yudelka Lopez Work Phone: [facility] 03-21-2023 15:04-0400 Heart rate 109 /min [employer]CR[employer]E [employer] Yudelka Lopez Work Phone: [facility] 03-21-2023 15:04-0400 Respiratory rate 20 /min [employer]CR[employer]E [employer] Yudelka Lopez Work Phone: [facility] 03-21-2023 15:04-0400 SaO2% (BldA) [Mass fraction] 99 % [employer]CR[employer]E [employer] Yudelka Lopez Work Phone: [facility] 03-21-2023 15:04-0400 Systolic blood pressure 134 mm[Hg] [employer]CR[employer]E [employer]ER Yudelka Lopez Work Phone: [facility] 02-07-2023 10:42-0400 Diastolic blood pressure 70 mm[Hg] [employer]CR[employer]E [employer]ER Yudelka Lopez Work Phone: [facility] 02-07-2023 10:42-0400 Heart rate 82 /min [employer]E [employer] Yudelka Lopez Work Phone: [facility] 02-07-2023 10:42-0400 Respiratory rate 18 /min [employer]E [employer] Yudelka Lopze Work Phone: [facility] 02-07-2023 10:42-0400 SaO2% (BldA) [Mass fraction] 97 % [employer]CR[employer]E [employer] Yudelka Lopez Work Phone: [facility] 02-07-2023 10:42-0400 Systolic blood pressure 118 mm[Hg] [employer]CR[employer]E [employer]ER Yudelka Lopez Work Phone: [facility] 02-07-2023 08:15-0400 Body temperature 98 [degF] [employer]CR[employer]E [employer]ER Yudelka Lopez Work Phone: [facility] 02-06-2023 10:57-0400 Diastolic blood pressure 54 mm[Hg] [employer]CR[employer]E [employer]ER Yudelka Lopez Work Phone: [facility] 02-06-2023 10:57-0400 Heart rate 66 /min [employer] Yudelka Lopez Work Phone: [facility] 02-06-2023 10:57-0400 Respiratory rate 18 /min [employer]E [employer] Yudelka Lopez Work Phone: [facility] 02-06-2023 10:57-0400 SaO2% (BldA) [Mass fraction] 99 % [employer]CR[employer]E [employer] Yudelka Lopez Work Phone: [facility] 02-06-2023 10:57-0400 Systolic blood pressure 113 mm[Hg] [employer]CR[employer]E [employer]ER Yudelka Lopez Work Phone: [facility] 02-06-2023 09:14-0400 Body height 160.02 cm CONCRETE [employer]ER Yudelka Lopez Work Phone: [facility] 02-06-2023 09:14-0400 Body temperature 98.1 [degF] [employer]E [employer]ER Yudelka Lopez Work Phone: [facility] 02-06-2023 09:14-0400 Body weight 73 kg [employer]CR[employer]E [employer]ER Yudelka Lopez Work Phone: [facility] 01-25-2023 12:38-0400 Diastolic blood pressure 74 mm[Hg] [employer]E [employer] Yudelka Lopez Work Phone: [facility] 01-25-2023 12:38-0400 Heart rate 72 /min [employer]E [employer] Yudelka Lopez Work Phone: [facility] 01-25-2023 12:38-0400 Respiratory rate 18 /min [employer]E [employer] Yudelka Lopez Work Phone: [facility] 01-25-2023 12:38-0400 SaO2% (BldA) [Mass fraction] 100 % BETTY Lopez Work Phone: [facility] 01-25-2023 12:38-0400 Systolic blood pressure 101 mm[Hg] BETTY Lopez Work Phone: [facility] 01-25-2023 08:19-0400 Body temperature 98.3 [degF] BETTY Lopez Work Phone: [facility] 01-02-2023 10:31-0400 Body weight 75.2 kg BETTY Lopez Work Phone: [facility] 12-21-2022 10:00-0400 Body height 157.48 cm Imad Asaad Other [employer] [facility] [employer] Other 12-21-2022 10:00-0400 Body mass index (BMI) [Ratio] 30.36 kg/m2 Imad Asaad Other [employer] Other 12-21-2022 10:00-0400 Body weight 75.3 kg Imad Asaad Other [employer] Other 12-21-2022 10:00-0400 Diastolic blood pressure 68 mm[Hg] Imad Asaad Other [employer] Other 12-21-2022 10:00-0400 Systolic blood pressure 115 mm[Hg] Imad Asaad Other [employer] Other 11-28-2022 20:38-0400 Body height 157.48 cm BETTY Lopez Work Phone: [facility] 11-28-2022 20:38-0400 Body temperature 97.9 [degF] BETTY Lopez Work Phone: [facility] 11-28-2022 20:38-0400 Body weight 75.2 kg [employer]CR[employer]E [employer]ER Yudelka Lopez Work Phone: [facility] 11-28-2022 20:38-0400 Diastolic blood pressure 72 mm[Hg] [employer]CR[employer]E [employer]ER Yudelka Lopez Work Phone: [facility] 11-28-2022 20:38-0400 Heart rate 78 /min [employer]E [employer] Yudelka Lopez Work Phone: [facility] 11-28-2022 20:38-0400 Respiratory rate 18 /min [employer]CR[employer]E [employer]ER Yudelka Lopez Work Phone: [facility] 11-28-2022 20:38-0400 SaO2% (BldA) [Mass fraction] 100 % [employer]CR[employer]E [employer]ER Yudelka Lopez Work Phone: [facility] 11-28-2022 20:38-0400 Systolic blood pressure 140 mm[Hg] [employer]CR[employer]E [employer]ER Yudelka Lopez Work Phone: [facility] 11-01-2022 12:30-0500 Diastolic blood pressure 66 mm[Hg] [employer]CR[employer]E [employer]ER Yudelka Lopez Work Phone: [facility] 11-01-2022 12:30-0500 Heart rate 60 /min [employer]E [employer] Yudelka Lopez Work Phone: [facility] 11-01-2022 12:30-0500 Respiratory rate 18 /min [employer]CR[employer]E [employer]ER Yudelka Lopez Work Phone: [facility] 11-01-2022 12:30-0500 SaO2% (BldA) [Mass fraction] 100 % [employer]CR[employer]E [employer]ER Yudelka Lopez Work Phone: [facility] 11-01-2022 12:30-0500 Systolic blood pressure 108 mm[Hg] CONCR[employer]E [employer]AYER Yudelka Lopez Work Phone: [facility] 11-01-2022 10:17-0500 Body temperature 98.9 [degF] [employer]CR[employer]E [employer]ER Yudelka Lopez Work Phone: [facility] 10-10-2022 15:05-0500 Diastolic blood pressure 62 mm[Hg] [employer]CR[employer]E [employer] Yudelka Lopez Work Phone: [facility] 10-10-2022 15:05-0500 Heart rate 68 /min [employer]CR[employer]E [employer] Yudelka Lopez Work Phone: [facility] 10-10-2022 15:05-0500 Respiratory rate 16 /min [employer]CR[employer]E [employer] Yudelka Lopez Work Phone: [facility] 10-10-2022 15:05-0500 Systolic blood pressure 111 mm[Hg] CONCR[employer]E [employer]AYER Yudelka Lopez Work Phone: [facility] 10-10-2022 13:05-0500 Body temperature 98.3 [degF] [employer]CR[employer]E [employer]ER Yudelka Lopez Work Phone: [facility] 10-10-2022 13:05-0500 SaO2% (BldA) [Mass fraction] 100 % [employer]CR[employer]E [employer] Yudelka Lopez Work Phone: [facility] 10-03-2022 10:46-0500 Body weight 72.41 kg CONCRETE [employer]ER Yudelka Lopez Work Phone: [facility] 10-03-2022 10:33-0500 Body height 157.48 cm CONCRETE [employer] Yudelka Lopez Work Phone: [facility] 09-21-2022 14:02-0500 Diastolic blood pressure 54 mm[Hg] [employer]CR[employer]E [employer]ER Yudelka Lopez Work Phone: [facility] 09-21-2022 14:02-0500 Heart rate 72 /min [employer]CR[employer]E [employer] Yudelka oLpez Work Phone: [facility] 09-21-2022 14:02-0500 Respiratory rate 18 /min [employer]CR[employer]E [employer] Yudelka Lopez Work Phone: [facility] 09-21-2022 14:02-0500 SaO2% (BldA) [Mass fraction] 100 % [employer]CR[employer]E [employer]ER Yudelka John Work Phone: [facility] 09-21-2022 14:02-0500 Systolic blood pressure 105 mm[Hg] CONCR[employer]E [employer]ER Yudelka Lopez Work Phone: [facility] 09-21-2022 12:05-0500 Body height 157.48 cm CONCRETE [employer]ER Yudelka Lopez Work Phone: [facility] 09-21-2022 12:05-0500 Body temperature 98.2 [degF] [employer]CR[employer]E [employer]ER Yudelka Lopez Work Phone: [facility] 09-21-2022 12:05-0500 Body weight 71.6 kg CONCRETE [employer]AYER Yudelka Lopez Work Phone: [facility] 07-04-2022 20:47-0400 Body temperature 98.2 [degF] [employer]CR[employer]E [employer]ER Yudelka Lopez Work Phone: [facility] 07-04-2022 20:47-0400 Diastolic blood pressure 72 mm[Hg] [employer]CR[employer]E [employer]ER Yudelka Lopez Work Phone: [facility] 07-04-2022 20:47-0400 Heart rate 83 /min [employer]CR[employer]E [employer] Yudelka Lopez Work Phone: [facility] 07-04-2022 20:47-0400 Respiratory rate 18 /min [employer]CR[employer]E [employer]ER Yudelka Lopez Work Phone: [facility] 07-04-2022 20:47-0400 SaO2% (BldA) [Mass fraction] 99 % [employer]CR[employer]E [employer] Yudelka Lopez Work Phone: [facility] 07-04-2022 20:47-0400 Systolic blood pressure 119 mm[Hg] CONCR[employer]E [employer]AYER Yudelka Lopez Work Phone: [facility] 07-04-2022 18:45-0400 Body height 160.02 cm CONCRETE BLOCK [employer]AYER Yudelka Lopez Work Phone: [facility] 07-04-2022 18:45-0400 Body weight 73.6 kg CONCRETE BLOCK [employer]AYER Yudelka Lopez Work Phone: [facility] 06-01-2022 02:30-0400 Diastolic blood pressure 85 mm[Hg] CONCR[employer]E [employer]AYER Yudelka Lopez Work Phone: [facility] 06-01-2022 02:30-0400 Heart rate 71 /min [employer]CR[employer]E [employer]ER Yudelka Lopez Work Phone: [facility] 06-01-2022 02:30-0400 Respiratory rate 16 /min CONCRETE BLOCK LAYERFamilia Lopez Work Phone: [facility] 06-01-2022 02:30-0400 SaO2% (BldA) [Mass fraction] 100 % CONCRETE BLOCK LAYERFamilia Lopez Work Phone: [facility] 06-01-2022 02:30-0400 Systolic blood pressure 111 mm[Hg] CONCRETE BLOCK LAYERFamilia Jha John Work Phone: [facility] 06-01-2022 01:29-0400 Body height 160.02 cm CONCRETE BLOCK LAYERFamilia Lopez Work Phone: [facility] 06-01-2022 01:29-0400 Body temperature 98 [degF] BETTY Lopez Work Phone: [facility] 06-01-2022 01:29-0400 Body weight 73.48 kg CONCRETE BLOCK LAYERFamilia Lopez Work Phone: [facility] 04-07-2022 12:02-0400 Body height 157.81 cm Yudelka Scott Lopez Work Phone: [facility] Work Phone: 04-07-2022 12:02-0400 Body mass index (BMI) [Ratio] 30.42 kg/m2 Yudelka Scott Lopez Work Phone: [facility] Work Phone: 04-07-2022 12:02-0400 Body surface area Derived from formula 1.77 m2 Yudelka Scott Lopez Work Phone: [facility] Work Phone: 04-07-2022 12:02-0400 Body temperature 97.7 [degF] Yudelka Lopez Work Phone: [facility] Work Phone: 04-07-2022 12:02-0400 Body weight 75.75 kg Yudelka Lopez Work Phone: [facility] Work Phone: 04-07-2022 12:02-0400 Diastolic blood pressure 66 mm[Hg] Yudelka Lopez Work Phone: [facility] Work Phone: 04-07-2022 12:02-0400 Heart rate 73 /min Yudelka Sonia Lopez Work Phone: [facility] Work Phone: 04-07-2022 12:02-0400 Respiratory rate 16 /min Yudelka Sonia Lopez Work Phone: [facility] Work Phone: 04-07-2022 12:02-0400 SaO2% (BldA) [Mass fraction] 100 % Yudelka Scott John Work Phone: [facility] Work Phone: 04-07-2022 12:02-0400 Systolic blood pressure 137 mm[Hg] Yudelka Sonia Lopez Work Phone: [facility] Work Phone: 04-07-2022 12:02-0400 0 1 Yudelka Lopez Work Phone: [facility] Work Phone: Comment on above: [employer] 04-05-2022 00:01-0400 Diastolic blood pressure 63 mm[Hg] CONCRETE BLOCK LAYERFamilia Jha Lopez Work Phone: [facility] 04-05-2022 00:01-0400 Heart rate 59 /min [employer]CR[employer]E [employer] Yudelka Lopez Work Phone: [facility] 04-05-2022 00:01-0400 Respiratory rate 20 /min [employer]CR[employer]E [employer]ER Yudelka Lopez Work Phone: [facility] 04-05-2022 00:01-0400 SaO2% (BldA) [Mass fraction] 100 % CONCRETE BLOCK LAYERFamilia Lopez Work Phone: [facility] 04-05-2022 00:01-0400 Systolic blood pressure 117 mm[Hg] BETTY Lopez Work Phone: [facility] 04-04-2022 17:01-0400 Body height 157.48 cm BETTY Lopez Work Phone: [facility] 04-04-2022 17:01-0400 Body mass index (BMI) [Ratio] 30.4 kg/m2 BETTY Lopez Work Phone: [facility] 04-04-2022 17:01-0400 Body temperature 98.7 [degF] BETTY Lopez Work Phone: [facility] 04-04-2022 17:01-0400 Body weight 75.6 kg BETTY Lopez Work Phone: [facility] 03-24-2022 11:38-0400 Body height 157.81 cm Unknown Unknown ZC-Clsgcezef-Jud dman Work Phone: 03-24-2022 11:38-0400 Body mass index (BMI) [Ratio] 30.08 kg/m2 Unknown Unknown ZH-Eroazphqf-Gikmzfg Work Phone: 03-24-2022 11:38-0400 Body surface area Derived from formula 1.76 m2 Unknown Unknown JS-Wpoywisna-Ulonnss Work Phone: 03-24-2022 11:38-0400 Body temperature 98.24 [degF] Unknown Unknown FP-Ogvhdfwqj-Iw idman Work Phone: 03-24-2022 11:38-0400 Body weight 74.9 kg Unknown Unknown VG-Ickmofdbg-Dxw dman Work Phone: 03-24-2022 11:38-0400 Diastolic blood pressure 78 mm[Hg] Unknown Unknown ZQ-Twibkuiud-Rvuvnlq Work Phone: 03-24-2022 11:38-0400 Heart rate 82 /min Unknown Unknown US-Vvddqtxxj-Mwx dman Work Phone: 03-24-2022 11:38-0400 Respiratory rate 16 /min Unknown Unknown KG-Okgithmxq-Qj idman Work Phone: 03-24-2022 11:38-0400 SaO2% (BldA) [Mass fraction] 100 % Unknown Unknown IO-Rndjrovpw-Wiwtquo Work Phone: 03-24-2022 11:38-0400 Systolic blood pressure 130 mm[Hg] Unknown Unknown CI-Zmoocqhvt-Qjchuab Work Phone: 03-24-2022 11:38-0400 6 1 Unknown Unknown QG-Oiklqgpyx-Cbg dman Work Phone: Comment on above: [employer] 03-15-2022 21:05-0400 Diastolic blood pressure 67 mm[Hg] CONCRETE [employer]AYER Yudelka Lopez Work Phone: [facility] 03-15-2022 21:05-0400 Heart rate 72 /min [employer]CR[employer]E [employer] Yudelka Lopez Work Phone: [facility] 03-15-2022 21:05-0400 Respiratory rate 18 /min BETTY Lopez Work Phone: [facility] 03-15-2022 21:05-0400 SaO2% (BldA) [Mass fraction] 100 % [employer]CRETE [employer]AYER Yudelka Lopez Work Phone: [facility] 03-15-2022 21:05-0400 Systolic blood pressure 127 mm[Hg] CONCRETE [employer]AYER Yudelka Lopez Work Phone: [facility] 03-15-2022 19:22-0400 Body height 157.48 cm CONCRETE BLOCK LAYER Yudelka Lopez Work Phone: [facility] 03-15-2022 19:22-0400 Body mass index (BMI) [Ratio] 30.9 kg/m2 CONCR[employer]E [employer]AYER Yudelka Lopez Work Phone: [facility] 03-15-2022 19:22-0400 Body temperature 98.6 [degF] CONCRETE [employer]AYER Yudelka Lopez Work Phone: [facility] 03-15-2022 19:22-0400 Body weight 76.7 kg BETTY Lopez Work Phone: [facility] 03-04-2022 [id number] Body height 157.48 cm CONCRETE BLOCK LAYERFamilia Lopez Work Phone: [facility] 03-04-2022 01:04-0400 Body mass index (BMI) [Ratio] 30.4 kg/m2 CONCRETE BLOCK LAYERFamilia Lopez Work Phone: [facility] 03-04-2022 [id number] Body weight 75.55 kg CONCRETE BLOCK LAYERFamilia Lopez Work Phone: [facility] 03-04-2022 01:01-0400 Body temperature 98.1 [degF] CONCRETE BLOCK LAYERFamilia Lopez Work Phone: [facility] 03-04-2022 01:01-0400 Diastolic blood pressure 80 mm[Hg] BETTY Lopez Work Phone: [facility] 03-04-2022 01:01-0400 Heart rate 81 /min BETTY Lopez Work Phone: [facility] 03-04-2022 01:01-0400 Respiratory rate 18 /min BETTY Lopez Work Phone: [facility] 03-04-2022 01:01-0400 SaO2% (BldA) [Mass fraction] 97 % BETTY Lopez Work Phone: [facility] 03-04-2022 01:01-0400 Systolic blood pressure 129 mm[Hg] BETTY Lopez Work Phone: [facility] Encounters Encounter Date Encounter Type Care Provider Facility Start: 02-12-2025 End: 02-12-2025 Clinisync Result Encounter Malcolm Helder DO Work Phone: [facility] Unsolicited Start: 02-12-2025 End: 02-12-2025 Clinisync Result Encounter Malcolm Helder DO Work Phone: [facility] Unsolicited Start: 02-11-2025 End: 02-11-2025 Bamboo flowsheet Priscilla SRIVASTAVA Work Phone: [facility] Start: 02-11-2025 End: 02-11-2025 Bamboo flowsheet Priscilla SRIVASTAVA Work Phone: [facility] Start: 02-11-2025 End: 02-11-2025 flow sheet Priscilla SRIVASTAVA Work Phone: [facility] Comment on above: Third trimester preg brandon; 32 weeks gestation of ; Nausea Start: 02-11-2025 End: 02-11-2025 ambulatory PRISCILLA WARREN Not Available Start: 02-04-2025 End: 02-04-2025 Telephone encounter Josey Minayakle [facility] [place] Start: 02-01-2025 End: 02-01-2025 Emergency department patient visit Jim Rincon Silvia Facility:[facility] Start: 01-28-2025 End: 01-28-2025 External Result Encounter Priscilla SRIVASTAVA Work Phone: [facility] Unsolicited Start: 01-28-2025 End: 01-28-2025 External Result Encounter Priscilla SRIVASTAVA Work Phone: [facility] Unsolicited Start: 01-28-2025 End: 01-28-2025 Telephone encounter Josey Barakate [facility] [place] Comment on above: Thalassemia alpha ca rrier (Primary Dx); Family history of sickle cell trait; Family history of DVT; History of anemia; Choroid plexus cyst of fetus affecting care of mother, antepartum, fetus 1; Abnormal genetic test during ; Previous delivery affecting , antepartum; History of pre-eclampsia in prior , currently in first trimester Start: 01-28-2025 End: 01-28-2025 Patient encounter procedure Yudelka Lopez APRN Work Phone: [facility] [place] Work Phone: Start: 01-28-2025 End: 01-28-2025 ambulatory Yudelka Lopez APRN Work Phone: [facility] Work Phone: Start: 01-27-2025 End: 01-27-2025 Bamboo flowsheet Malcolm Helder DO Work Phone: [facility] Start: 01-27-2025 End: 01-27-2025 Bamboo flowsheet Malcolm Helder DO Work Phone: [facility] Start: 01-27-2025 End: 01-27-2025 ambulatory [facility]COLM R [facility] Start: 01-27-2025 End: 01-27-2025 flow sheet Malcolm Helder DO Work Phone: [facility] Comment on above: Third trimester preg brandon; 30 weeks gestation of ; H/O pre-eclampsia in prior , currently ; H/O delivery, currently ; Request for sterilization Start: 01-27-2025 End: 01-27-2025 ambulatory MALCOLM HELDER Not Available Start: 01-14-2025 End: 01-14-2025 Bamboo flowsheet Reynold Leslie BILINGUAL TRAINER Work Phone: [facility] Start: 01-14-2025 End: 01-15-2025 Bamboo flowsheet Reynold Leslie BILINGUAL TRAINER Work Phone: [facility] Start: 01-14-2025 End: 01-15-2025 External Result Encounter Malcolm Helder DO Work Phone: [facility] Unsolicited Start: 01-14-2025 End: 01-14-2025 flow sheet Reynold Leslie BILINGUAL TRAINER Work Phone: [facility] Comment on above: Third trimester preg brandon; 28 weeks gestation of Start: 01-14-2025 End: 01-14-2025 ambulatory REYNOLD LESLIE Not Available Start: 01-13-2025 End: 01-13-2025 ambulatory [facility] Start: 01-08-2025 End: 01-08-2025 Clinisync Result [...] infection Start: 12-30-2024 End: 12-30-2024 ambulatory MALCOLM HELDER Not Available Start: 12-16-2024 End: 12-16-2024 ambulatory MALCOLM R HELDER [facility] Start: 12-12-2024 End: 12-12-2024 Telemedicine consultation with patient Henny Montgomery MD Work Phone: [facility] Comment on above: Thalassemia alpha ca rrier (Primary Dx); Abnormal genetic test during ; Family history of sickle cell trait; Family history of DVT Start: 12-12-2024 End: 12-12-2024 ambulatory MALCOLM R HELDER [facility] Start: 12-09-2024 End: 12-09-2024 Orders Only Natalie Díaz RN [facility] Comment on above: Thalassemia alpha ca rrier (Primary Dx) Start: 12-08-2024 End: 12-08-2024 Documentation procedure Henny Montgomery MD Work Phone: [facility] Start: 12-08-2024 End: 12-08-2024 Telephone encounter Josey Valentine [facility] Start: 12-02-2024 End: 12-02-2024 ambulatory PRISCILLA WARREN Not Available Start: 11-21-2024 End: 11-21-2024 Office consultation new/estab patient 60 min Henny Montgomery MD Work Phone: Maternal- Medicine at [facility] Comment on above: Previous de livery affecting , antepartum (Primary Dx); History of pre-eclampsia in prior , currently in first trimester; History of anemia; Choroid plexus cyst of fetus affecting care of mother, antepartum, fetus 1 Start: 11-21-2024 End: 11-21-2024 Orders Only Priscilla Haider LPN Maternal- Medic ine at [facility] Comment on above: History of anemia (P rimary Dx) Start: 11-18-2024 End: 11-18-2024 Bamboo flowsheet Naresh A Felter CONCRETE BLOCK LAYER-CUSTOMER ACCOUNTS ADVISOR Work Phone: [facility] Start: 11-18-2024 End: 11-18-2024 Bamboo flowsheet Naresh A Felter CONCRETE BLOCK LAYER-CUSTOMER ACCOUNTS ADVISOR Work Phone: [facility] Start: 11-18-2024 End: 11-18-2024 Office outpatient visit 15 minutes Naresh A Felter CONCRETE BLOCK LAYER-CUSTOMER ACCOUNTS ADVISOR Work Phone: [facility] Comment on above: Acne vulgaris (Prima ry Dx); Other atopic dermatitis Start: 11-18-2024 End: 11-18-2024 ambulatory NARESH A FELTER Not Available Start: 02-24-2025 Registered Recurring Yudelka Mur ray CONCRETE BLOCK LAYER Work Phone: [facility] Work Phone: Start: 11-10-2024 End: 11-10-2024 ambulatory Yudelka Lopez CONCRETE BLOCK LAYER Work Phone: [facility] Work Phone: Start: 11-10-2024 End: 11-10-2024 Patient encounter procedure Yudelka Lopez CONCRETE BLOCK LAYER [facility] Work Phone: Start: 11-07-2024 End: 11-07-2024 External Result Encounter Kelly Hough BILINGUAL TRAINER Other Phone: [facility] External Department Unsolicited Start: 11-07-2024 End: 11-07-2024 External Result Encounter Kelly Hough NP Other Phone: [facility] External Department Unsolicited Start: 11-04-2024 End: 11-04-2024 Patient encounter procedure Malcolm Helder DO Work Phone: [facility] Comment on above: 18 weeks gestation o f ; LGSIL of cervix of undetermined significance; Other headache syndrome; Mood disorder ([facility]/HCC) Start: 11-04-2024 End: 11-04-2024 ambulatory MALCOLM HELDER [...] Work Phone: [facility] Start: 10-14-2024 End: 01-28-2025 Periodic preventive med est patient 18-39 yrs Priscilla Warren PA Work Phone: [facility] Comment on [...] Start: 09-11-2024 End: 09-11-2024 ambulatory Malcolm Helder Facility:[facility] Start: 09-11-2024 End: 09-11-2024 Departed Referred Yudelka Lopez BETTY Work Phone: [facility] Start: 09-11-2024 End: 09-11-2024 flow sheet Malcolm Helder DO Work Phone: [facility] Comment on above: 10 weeks gestation o f ; First trimester ; Other headache syndrome; Nausea and vomiting during ; Thyroid disease affecting (CMS/HCC) Start: 09-11-2024 End: 09-11-2024 ambulatory MALCOLM HELDER Not Available Start: 08-26-2024 End: 08-26-2024 Office outpatient visit 5 minutes [facility] Helder Nurse [facility] Comment on above: GA: 8w2d Start: 08-26-2024 End: 08-26-2024 ambulatory PRISCILLA WARREN Not Available Start: 08-06-2024 End: 08-08-2024 Evaluation and management of inpatient Yudelka Lopez APRN Work Phone: [facility] Work Phone: Start: 08-06-2024 ambulatory Julián Naqvi Facility:[facility] Start: 08-04-2024 End: 08-04-2024 Clinisync Result Encounter [...] BETTY Lopez Work Phone: [facility]-Emergency Room Work Phone: Start: 07-14-2024 End: 07-14-2024 ambulatory [facility] Work Phone: Start: 07-14-2024 End: 07-14-2024 Patient encounter procedure [facility] [place] Work Phone: Start: 02-21-2024 End: 02-21-2024 Emergency department patient visit [facility] Start: 02-21-2024 Encounter for gynecological examination (general) (routine) without abnormal findings [facility] Start: 02-19-2024 End: 02-19-2024 ambulatory MALCOLM HELDER Not Available Start: 12-10-2023 End: 12-11-2023 ambulatory Malagon Talal Sarmini Facility:[facility] Start: 12-10-2023 End: 12-10-2023 Patient encounter procedure Malagon Talal [facility] Start: 09-28-2023 End: 09-28-2023 ambulatory CONCRETE BLOCK LAYER Yudelka Lopez Work Phone: [facility] Work Phone: Start: 09-28-2023 End: 09-28-2023 Registered Recurring BETTY Lopez Work Phone: [facility] Work Phone: Start: 09-27-2023 End: 09-27-2023 ambulatory CONCRETE BLOCK LAYER Yudelka Lopez Work Phone: [facility] Work Phone: Start: 09-27-2023 End: 09-27-2023 Departed Referred BETTY Lopez Work Phone: [facility] Start: 09-27-2023 Registered Recurring BETTY east Lopez Work Phone: [facility] Work Phone: Start: 06-27-2023 End: 06-27-2023 ambulatory BETTY Lopez Work Phone: [facility] Work Phone: Start: 06-27-2023 End: 06-27-2023 Registered Recurring BETTY Lopez Work Phone: [facility] Work Phone: Start: 06-14-2023 Registered Recurring BETTY Lopez Work Phone: [facility] Work Phone: Start: 06-14-2023 End: 06-14-2023 ambulatory CONCRETE BLOCK LAYER Yudelka Lopez Work Phone: [facility] Work Phone: Start: 06-14-2023 End: 06-14-2023 Patient encounter procedure BETTY Lopez Work Phone: [facility] [place] Work Phone: Start: 06-04-2023 End: 06-04-2023 ambulatory Marvin Fontenot Other [facility] [employer] Other Start: 06-04-2023 Office outpatient visit 15 minutes Marvin Fontenot [facility] Start: 04-24-2023 End: 04-25-2023 ambulatory Kelly Hough Facility:[facility] Start: 04-24-2023 End: 04-24-2023 Patient encounter procedure Lex Elizabeth [facility] [place] Start: 04-03-2023 ambulatory Lex Elizabeth Facilit y:[facility] Start: 03-21-2023 End: 03-21-2023 ambulatory BETTY Lopez Work Phone: [facility] Work Phone: Start: 03-21-2023 End: 03-21-2023 Registered Recurring BETTY Lopez Work Phone: [facility] Work Phone: Start: 03-14-2023 End: 03-14-2023 ambulatory BETTY Lopez Work Phone: [facility] Work Phone: Start: 03-14-2023 End: 03-14-2023 Patient encounter procedure BETTY Lopez Work Phone: [facility] [place] Work Phone: Start: 02-07-2023 Registered Recurring BETTY Lopez Work Phone: [facility] Work Phone: Start: 02-06-2023 End: 02-06-2023 Emergency department patient visit BETTY Lopez Work Phone: [facility] Work Phone: Start: 01-29-2023 End: 01-29-2023 ambulatory CONCRETE BLOCK LAYER Yudelka Lopez Work Phone: [facility] Work Phone: Start: 01-29-2023 End: 01-29-2023 Patient encounter procedure BETTY Lopez Work Phone: [facility] [place] Work Phone: Start: 01-25-2023 Registered Recurring CONCRETE BLOCK LAYER Howard Lopez Work Phone: [facility] Work Phone: Start: 01-24-2023 End: 01-24-2023 ambulatory CONCRETE BLOCK LAYER Yudelka Lopez Work Phone: [facility] Work Phone: Start: 01-24-2023 End: 01-24-2023 Discharged Recurring BETTY Lopez Work Phone: [facility]-Physical Therapy [address] Start: 12-25-2022 End: 12-25-2022 ambulatory CONCRETE BLOCK LAYER Yudelka Lopez Work Phone: [facility] Work Phone: Start: 12-25-2022 End: 12-25-2022 Patient encounter procedure BETTY Lopez Work Phone: [facility] [address] [place] Work Phone: Start: 12-25-2022 Registered Recurring BETTY Lopez Work Phone: [facility]Physical Therapy [address] Start: 12-22-2022 End: 12-22-2022 ambulatory Imad Asaad Other [employer] Other Start: 12-22-2022 Telephone encounter Imad Asaad [facility] Start: 12-21-2022 End: 12-21-2022 ambulatory Imad Asaad Other [employer] Other Start: 12-21-2022 [facility] visit new patient Jose [facility] Start: 12-07-2022 End: 12-07-[address] DOCTOR MARI Facility:[facility] Start: 11-29-2022 End: 11-30-[address] MALCOLM PENDLETON . Facility:[facility] Start: 11-28-2022 End: 11-28-2022 Emergency department patient visit CONCRETE BLOCK LAYERFamilia Jha Lopez Work Phone: [facility] Work Phone: Start: 11-01-2022 Registered Recurring CONCRETE BLOCK LAYERFamilia Lopez Work Phone: [facility] Work Phone: Start: 10-12-2022 End: 10-12-2022 ambulatory CONCRETE BLOCK LAYERFamilia Jha Lora Lopez Work Phone: [facility] Work Phone: Start: 10-12-2022 End: 10-12-2022 Patient encounter procedure BETTY Lopez Work Phone: [facility] [address] [place] Work Phone: Start: 10-10-2022 Registered Recurring BETTY Lopez Work Phone: [facility] Work Phone: Start: 10-02-2022 End: 10-02-2022 ambulatory CONCRETE BLOCK LAYER Yudelka Lora Lopez Work Phone: [facility] Work Phone: Start: 10-02-2022 End: 10-02-2022 Patient encounter procedure CONCRETE BLOCK LAYERFamilia Jha Lopez Work Phone: [facility]Ultras[facility] [address] [place] Work Phone: Start: 09-21-2022 End: 09-21-2022 Emergency department patient visit CONCRETE BLOCK LAYERFamilia Lopez Work Phone: [facility] Work Phone: Start: 09-15-2022 End: 09-15-2022 ambulatory CONCRETE BLOCK LAYER Yudelka Lopez Work Phone: [facility] Work Phone: Start: 09-15-2022 End: 09-15-2022 Patient encounter procedure BETTY Lopez Work Phone: [facility] [address] [place] Work Phone: Start: 08-05-2022 End: 08-06-[address] MALCOLM PENDLETON . Facility:[facility] Start: 07-28-2022 End: 07-29-[address] MALCOLM PENDLETON . Facility:[facility] Start: 07-04-2022 End: 07-04-2022 Emergency department patient visit BETTY Lopez Work Phone: [facility]gency [facility] Start: 07-03-2022 End: 07-03-[address] MALCOLM PENDLETON . Facility:[facility] Start: 06-01-2022 End: 06-01-2022 Emergency department patient visit BETTY Lopez Work Phone: [facility]Emergency [facility] Start: 04-21-2022 Patient encounter procedure Yudelka Lopez Work Phone: [facility] Work Phone: Start: 04-21-2022 Postop follow up vis it related to original px Yudelka Lopez Work Phone: [facility] Work Phone: Start: 04-18-2022 End: 04-19-[address] DOCTOR MARI Facility:[facility] Start: 04-17-2022 Chart Update Yudelka Scott Lopez Work Phone: [facility] Work Phone: Start: 04-14-2022 End: 04-14-2022 Departed Referred BETTY Lopez Work Phone: [facility] Start: 04-11-2022 End: 04-11-[address] REBECCA GALVEZ Facility:[facility] Start: 04-07-2022 Postop follow up vis it related to original px Yudelka Lopez Work Phone: [facility] Work Phone: Start: 04-04-2022 End: 04-05-2022 Emergency department patient visit BTETY Lopez Work Phone: [facility]Emer[facility] Start: 04-04-2022 AUDIT Yudelka Sonia Lopez Work Phone: [facility] Work Phone: Start: 03-31-2022 End: 03-31-2022 Patient encounter procedure BETTY Lopez Work Phone: [facility] COVID Testing Start: 03-24-2022 Patient encounter procedure Unknown Unknown [facility] Work Phone: Start: 03-15-2022 End: 03-15-2022 Emergency department patient visit BETTY Lopez Work Phone: [facility]gency [facility] Start: 03-04-2022 End: 03-04-2022 Emergency department patient visit BETTY Lopez Work Phone: [facility] Start: 02-20-2022 End: 02-20-[address] ALFIE MATTHEWS Facility:[facility] Start: 02-02-2022 End: 02-03-[address] ALFIE MATTHEWS Facility:[facility] Start: 01-11-2022 End: 01-12-[address] ALFIE MATTHEWS Facility:[facility] Procedures Date Procedure Procedure Detail Performing Clinician Start: 02-12-2025 US OB BPP W NON-STRESS Malcolm Pendleton DO Work Phone: Start: 02-11-2025 Urnls dip stick/tablet rgnt non-auto w/o micrscp Priscilla SRIVASTAVA Work Phone: Start: 01-14-2025 RECURRENT VAGINITIS (HTRX) Malcolm Pendleton D O Work Phone: Start: 01-14-2025 Urnls dip stick/tablet rgnt non-auto w/o micrscp Reynold Leslie NP Work Phone: Start: 01-08-2025 ALL CBC WITH AUTO DIFF Malcolm Helder DO Work Phone: Start: 01-06-2025 ALL CBC WITH AUTO DIFF Priscilla SRIVASTAVA Work Phone: Start: 12-30-2024 RECURRENT VAGINITIS (HTRX) Malcolm Helder D O Work Phone: Start: 11-07-2024 Complete blood count with white cell differential, automated Kelly Galvez [place] BILINGUAL TRAINER Other Phone: Start: 11-04-2024 Urnls dip stick/tablet [...] Start: 07-14-2024 SARS-CoV-2, Influenza & RSV (PCR) CONCRETE BLOCK LAYER Rowan Lopez Work Phone: Start: 07-14-2024 Viral nucleic acid assay Yudelka Lopez AP RN Work Phone: Start: 07-14-2024 Computed tomography of abdomen and pelvis with contrast CONCRETE BLOCK LAYER Yudelka Lopez Work Phone: Start: 03-14-2023 MRI of cervical spine without contrast CONCRETE BLOCK LAYER Yudelka Lopez Work Phone: Start: 01-29-2023 Radionuclide gastric emptying study CONCRETE BLOCK LAYERFamilia Lopez Work Phone: Start: 11-28-2022 X-ray of left foot CONCRETE BLOCK LAYERFamilia Lopez Work Phone: Start: 10-02-2022 US scan of thyroid CONCRETE BLOCK LAYERFamilia Lopez Work Phone: Start: 10-02-2022 X-ray of cervical spine CONCRETE BLOCK LAYER Yudelka christina Work Phone: Start: 09-21-2022 SARS-CoV-2, Influenza & RSV (PCR) BETTY Lopez Work Phone: Start: 09-21-2022 Plain chest X-ray BETTY Lopez Work Phone: Start: 09-15-2022 Plain chest X-ray CONCRETE BLOCK LAYERFamilia Lopez Work Phone: Start: 07-04-2022 Computed tomography of abdomen and pelvis with contrast CONCRETE BLOCK LAYERFamilia Lopez Work Phone: Start: 04-04-2022 CT angiography of thorax CONCRETE BLOCK LAYER Yudelka Decker ay Work Phone: Start: 04-04-2022 Plain chest X-ray CONCRETE BLOCK LAYERFamilia Lopez Work Phone: Start: 03-15-2022 Plain chest X-ray CONCRETE BLOCK LAYERFamilia Lopez Work Phone: Start: 02-12-2020 Kevin Elizabeth Comment on above: Poor prep Start: 02-12-2020 Esophagogastroduodenoscopy Lex Glenn Start: 09-03-2019 section Lex Williamgamaliel Start: 03-17-2019 H/O: section Previous delivery affecting , antepartum Henny Montgomery MD Work Phone: section Lex christina H/O: section Previous c esarean delivery affecting , antepartum Henny Montgomery MD Work Phone: H/O: section Previous c esarean delivery affecting , antepartum Marci Coppola [employer] None (qualifier value) Lex Elizabeth Plan of Treatment Date Care Activity Detail Author Start: 10-14-2027 Screening for malign ant neoplasm of cervix Pap Smear [facility] Start: 01-28-2026 End: 01-28-2026 US MFM with [...] first trimester Expected: 01/28/2026 (Approximate), Expires: 01/28/2026 [employer] Work Phone: Comment on above: Expected: 01/28/2026 (Approximate), Expires: 01/28/2026 Start: 01-09-2026 DTaP,Tdap and Td Vac cines (3 - Td or Tdap) DTaP,Tdap and Td Vaccines (3 - Td or Tdap) [facility] Start: 11-21-2025 Adult BMI Screening Adult BMI Screen ing [facility] Start: 11-21-2025 Tobacco Screening Tobacco Screening [facility] Start: 11-19-2025 End: 11-19-2025 Patient encounter procedure 11/19/2025 10:50 AM EST Office Visit [facility] [address] [place] [address] Naresh Chung, CONCRETE BLOCK LAYER-CUSTOMER ACCOUNTS ADVISOR [address] [place] [address] [facility] Start: 05-18-2025 Influenza vaccination Influenza Vacc ine [facility] Start: 02-26-2025 End: 02-26-2025 Patient encounter procedure 02/26/2025 2:15 PM EDT Appointment [facility] [place] [address] [place] [phone] [facility] [place] Start: 02-24-2025 End: 02-24-2025 Patient encounter procedure 02/24/2025 11:40 AM EDT Routine [facility] [address] [place] [id number] Malcolm Pendleton, [address] [place] [address] [facility] Start: 02-11-2025 End: 02-11-2025 Patient encounter procedure 02/11/2025 3:15 PM EDT Appointment [facility] [place] [address] [place] [address] [place] [phone] [facility] [place] Start: 02-11-2025 End: 02-11-2025 Patient encounter procedure [facility] Comment on above: Arrived Start: 02-03-2025 End: 02-03-2025 Patient encounter procedure 02/03/2025 9:15 AM EDT Appointment [facility] - Ultrasound [address] [place] [phone] [facility] - Ultrasound Start: 01-27-2025 End: 01-27-2025 Patient encounter procedure 01/27/2025 2:15 PM EDT Appointment [facility] - Ultrasound [address] [place] [phone] [facility] - Ultrasound Start: 01-27-2025 End: 07-30-2025 [...] encounter procedure 01/13/2025 9:15 AM EDT Appointment [facility] - Ultrasound [address] [place] [address] [facility] - Ultrasound Start: 12-30-2024 End: 12-30-2024 Patient encounter procedure [facility] Comment on above: Arrived Start: 12-16-2024 End: 12-16-2024 Patient encounter procedure 12/16/2024 9:15 AM EDT Appointment [facility] - Ultrasound [address] [place] [address] [facility] - Ultrasound Start: 12-12-2024 End: 12-12-2024 Telemedicine consultation with patient 12/12/2024 9:00 AM EDT Telemedicine Maternal- Medicine at [facility] [address] [place] [phone] Henny Montgomery MD [address] [place] [address] Jo Sue, [facility] [address] [place] [address] Maternal- Medicine at [facility] Start: 12-02-2024 End: 12-02-2024 Patient encounter procedure 12/02/2024 9:30 AM EDT Routine [facility] [address] [place] [phone] Priscilla Warren PA [address] [place] [address] [facility] Start: 11-21-2024 End: 11-21-2025 US MFM with or without consult US MFM with or without consult Imaging Routine History of anemia Expected: 11/21/2024, Expires: 11/21/2025 [facility] Work Phone: Comment on above: Expected: 11/21/2024 , Expires: 11/21/2025 Start: 11-18-2024 End: 11-18-2024 Patient encounter procedure [facility] Comment on above: Arrived Start: 11-11-2024 End: 11-11-2024 Patient encounter procedure 11/11/2024 11:20 AM EST Routine [facility] [address] [place] [phone] Malcolm Pendleton DO [address] [place] [address] [facility] Start: 11-06-2024 End: 11-06-2024 Patient encounter procedure 11/06/2024 10:55 AM EST Office Visit [facility] [address] [place] [phone] Naresh Chung APRN-CUSTOMER ACCOUNTS ADVISOR [address] [place] [address] [facility] Start: 10-14-2024 End: 12-12-2024 [...] gestational age Expected: 08/26/2024 (Approximate), Expires: 08/26/2025 [facility] Comment on above: Expected: 08/26/2024 (Approximate), Expires: 08/26/2025 Start: 08-26-2024 End: 08-26-2025 Blood type and Indirect antibody screen panel - Blood Type and screen Lab Routine Missed menses , unspecified gestational age Expected: 08/26/2024 (Approximate), Expires: 08/26/2025 [facility] Work Phone: Comment on above: Expected: 08/26/2024 (Approximate), Expires: 08/26/2025 Start: 08-26-2024 End: 08-26-2025 Drugs of abuse panel - Urine by Screen method Rapid drug screen, urine Lab Routine , unspecified gestational age Encounter for supervision of normal first in first trimester Expected: 08/26/2024 (Approximate), Expires: 08/26/2025 [facility] Comment on above: Expected: 08/26/2024 (Approximate), Expires: 08/26/2025 Start: 08-26-2024 End: 08-26-2025 US Pelvis transvaginal US OB transvaginal Imaging Routine Missed menses Expected: 08/26/2024 (Approximate), Expires: 08/26/2025 [facility] Comment on above: Expected: 08/26/2024 (Approximate), Expires: 08/26/2025 Start: 08-26-2024 End: 08-26-2024 ambulatory 08/26/2024 9:30 AM EST Initial [facility] [address] [place] [address] [facility] Start: 08-26-2024 End: 08-26-2024 Professional / ancillary services management 08/26/2024 9:00 AM EST Ancillary Procedure [facility] [address] [place] [address] [facility] Start: 08-07-2024 Hospital admission [facility] Start: 08-07-2024 [facility] Start: 05-18-2024 Influenza vaccination Influenza Vacc [facility] Start: 04-23-2024 [facility] Start: 04-04-2024 [facility] Start: 03-31-2024 [facility] Start: 02-22-2024 [facility] Start: 01-30-2024 [facility] Start: 11-05-2023 [facility] Start: 10-10-2023 [facility] Start: 08-07-2023 [facility] Start: 07-24-2023 [facility] Start: 02-07-2023 [facility] Start: 01-31-2023 [facility] Start: 01-26-2023 End: 01-26-2023 [facility] Start: 01-24-2023 End: 01-25-2023 [facility] Start: 11-28-2022 X-ray of left foot XR foot LT min 3V * [facility] Start: 11-28-2022 XR Foot - left GE 3 Views [facility] Start: 11-01-2022 [facility] Start: 10-24-2022 End: 10-25-2022 [facility] Start: 10-17-2022 [facility] Start: 10-13-2022 [facility] Start: 10-12-2022 End: 10-13-2022 [facility] Start: 10-10-2022 [facility] Start: 04-21-2022 POV, Provider: Sly Crocker, Status: Pen, Time: 10:30 AM POV, Provider: Sly Crocker, Status: Pen, Time: 10:30 AM DN-Sfvevyn-QxxozsiChi [facility] Work Phone: Start: 2010 Adult BMI Follow Up Plan Adult BMI Follow Up Plan [facility] [employer] Start: 2004 [facility] [Mass/volume ] in Serum or Plasma [facility] Albumin/Globulin ratio [facility] Bacteria identified in Urine by Culture Urine culture Microbiology Routine Missed menses Ordered: 08/26/2024 [facility] Comment on above: Ordered: 08/26/2024 Calprotectin [Mass/m ass] in Stool [facility] CBC W Auto Different ial panel - Blood CBC and differential Lab Routine Missed menses , unspecified gestational age Ordered: 08/26/2024 [facility] Comment on above: Ordered: 08/26/2024 CHLAMYDIA TRACHOMATI S (GENITO/STI) CHLAMYDIA TRACHOMATIS (GENITO/STI) Lab Routine STD exposure Vaginal discharge Ordered: 10/14/2024 [facility] Comment on above: Ordered: 10/14/2024 Comprehensive metabo lic 1999 panel - Serum or Plasma [facility] Comprehensive metabo lic 1999 panel - Serum or Plasma [facility] Comprehensive metabo lic 1999 panel - Serum or Plasma [facility] Comprehensive metabo lic 1999 panel - Serum or Plasma [facility] Comprehensive metabo lic 1999 panel - Serum or Plasma Comprehensive metabolic panel Lab Routine 11/07/2024 9:38 AM EST [facility] Work Phone: Copper measurement [facility] Cytology Cervical or vaginal smear or scraping study Pap Smear Pathology and Cytology Routine Well woman exam with routine gynecological exam Ordered: 10/14/2024 [facility] Comment on above: Ordered: 10/14/2024 Electrophoresis: [id number] [facility] Electrophoresis: [id number] [facility] Electrophoresis: beta-globulin [facility] Electrophoresis: manohar ma globulin [facility] Endomysial antibody IgA level [facility] Erythrocyte sediment ation rate by Photometric method [facility] Erythropoietin (EPO) [Units/volume] in Serum or Plasma [facility] Ferritin [Mass/volum e] in Serum or Plasma [facility] Gliadin peptide IgA Ab [Units/volume] in Serum [facility] Gliadin peptide IgG Ab [Units/volume] in Serum [facility] Globulin [Mass/volum e] in Serum [facility] Hemoglobin A1c/Hemoglobin.total in Blood Hemoglobin A1c Lab Routine Missed menses , unspecified gestational age Ordered: 08/26/2024 [facility] Comment on above: Ordered: 08/26/2024 Hepatitis B virus gallagher rface Ag [Presence] in Serum or Plasma by Immunoassay Hepatitis B surface antigen Lab Routine Missed menses , unspecified gestational age Ordered: 08/26/2024 [facility] Comment on above: Ordered: 08/26/2024 Hepatitis C virus Ab [Presence] in Serum or Plasma by Immunoassay Hepatitis C antibody Lab Routine Missed menses , unspecified gestational age Ordered: 08/26/2024 [facility] Comment on above: Ordered: 08/26/2024 HIV 1+2 Ab+HIV1 p24 Ag [Presence] in Serum or Plasma by Immunoassay [facility] HIV-1/HIV-2 antigen/antibody combination immunoassay HIV-1 and HIV-2 antibodies Lab Routine Missed menses , unspecified gestational age Ordered: 08/26/2024 [facility] Comment on above: Ordered: 08/26/2024 Human papilloma viru s DNA [Presence] in Unspecified specimen by Probe with amplification HPV DNA probe, amplified Microbiology Routine Well woman exam with routine gynecological exam Ordered: 10/14/2024 [facility] Comment on above: Ordered: 10/14/2024 IgA [Mass/volume] in Serum or Plasma [facility] IgA [Mass/volume] in Serum or Plasma [facility] IgG [Mass/volume] in Serum or Plasma [facility] IgM [Mass/volume] in Serum or Plasma [facility] Iron and Iron bindin g capacity panel - Serum or Plasma Iron and TIBC Lab Routine 11/07/2024 9:38 AM EST [facility] [place] light chains.f ree [Mass/volume] in Serum [facility] [place] light chains.free/Lambda light chains.free [Mass Ratio] in Serum [facility] Lactate dehydrogenas e [Enzymatic activity/volume] in Unspecified specimen [facility] Lambda light chains. free [Mass/volume] in Serum or Plasma [facility] Neisseria gonorrhoea e DNA [Presence] in Unspecified specimen by HRIAM with probe detection Neisseria gonorrhea DNA probe, direct Lab Routine STD exposure Vaginal discharge Ordered: 10/14/2024 [facility] Comment on above: Ordered: 10/14/2024 Patient Education [facility] Work Phone: Patient referral [facility] Work Phone: Protein [Mass/volume ] in Serum or Plasma [facility] Reagin Ab [Presence] in Serum by RPR [facility] Reagin Ab [Presence] in Serum by RPR RPR Lab Routine Missed menses , unspecified gestational age Ordered: 08/26/2024 [facility] Comment on above: Ordered: 08/26/2024 Rubella antibody, IgG Rubella an tibody, IgG Lab Routine Missed menses , unspecified gestational age Ordered: 08/26/2024 [facility] Comment on above: Ordered: 08/26/2024 Serum immunofixation [facility] SURESWAB(R) ADVANCED VAGINITIS PLUS, TMA SUREAB(R) ADVANCED VAGINITIS PLUS, TMA Pathology and Cytology Routine STD exposure Vaginal discharge Ordered: 10/14/2024 [facility] Work Phone: Comment on above: Ordered: 10/14/2024 Thyroglobulin Ab [Units/volume] in Serum or Plasma [facility] Thyroperoxidase Ab [Units/volume] in Serum or Plasma [facility] Thyrotropin [Units/v olume] in Serum or Plasma TSH Lab Routine Thyroid disease affecting (CMS/HCC) Ordered: 09/11/2024 [facility] Comment on above: Ordered: 09/11/2024 Thyrotropin receptor Ab [Units/volume] in Serum [facility] Thyroxine (T4) free [Mass/volume] in Serum or Plasma T4, free Lab Routine Thyroid disease affecting (CMS/HCC) Ordered: 09/11/2024 [facility] Work Phone: Comment on above: Ordered: 09/11/2024 Tissue transglutamin ase IgA Ab [Units/volume] in Serum [facility] Tissue transglutamin ase IgG Ab [Units/volume] in Serum [facility] Transferrin [Mass/vo lume] in Serum or Plasma Transferrin Lab Routine 01/28/2025 8:32 AM EDT [facility] Work Phone: [facility] Immunizations Immunization Date Immunization Notes Care Provider [facility] 09-01-2021 influenza virus vaccine, unspecified formulation Malagon Sarmini [facility] 01-10-2016 tetanus toxoid, reduced diphtheria toxoid, and acellular pertussis vaccine, adsorbed Malagon Sarmini [facility] 09-30-2009 hepatitis A vaccine, unspecified formulation Malagon Sarmini [facility] 09-30-2009 hepatitis B vaccine, pediatric or pediatric/adolescent dosage Malagon Sarmini [facility] 05-27-2009 hepatitis B vaccine, pediatric or pediatric/adolescent dosage Malagon Sarmini [facility] 03-22-2009 hepatitis A vaccine, unspecified formulation Malagon Sarmini [facility] 03-22-2009 hepatitis B vaccine, pediatric or pediatric/adolescent dosage Malagon Sarmini [facility] 03-22-2009 measles, mumps and rubella virus vaccine Malagon Sarmini [facility] 03-22-2009 meningococcal ACWY vaccine, unspecified formulation Malagon Sarmini [facility] 03-22-2009 tetanus toxoid, reduced diphtheria toxoid, and acellular pertussis vaccine, adsorbed Malagon Sarmini [facility] NEGATED: Highlighted row has not occurred!12-07-2023 influenza virus vaccine, unspecified formulation Malagon Sarmini [facility] Payers Date Payer Category Payer Medicaid [id number] 2024 Medicaid [id number] 2023 Self-pay [id number] 2022 Managed Care Other (unspecified) [employer] [id number] 2022 Private Health Insurance [id number] .[id number] .[id number] 2022 Unknown [id number] 1992 Unknown [id number] 2.16.840.1.547967.3.579.2 .593 1992 Unknown [id number] 2.16.840.1.865639.3.579.2 .593 1992 Unknown [id number] 2.16.840.1.852167.3.579.2 .593 1992 Unknown [id number] 2.16.840.1.523828.3.579.2 .593 1992 Unknown [id number] 2.16.840.1.206000.3.579.2 .593 1992 Unknown [id number] 2.16.840.1.964361.3.579.2 .593 1992 Unknown [id number] 2.16.840.1.736415.3.579.2 .593 1992 Unknown [id number] 2.16.840.1.892035.3.579.2 .593 1992 Unknown [id number] 2.16.840.1.621663.3.579.2 .593 1992 Unknown [id number] 2.16.840.1.043593.3.579.2 .593 1992 Unknown [id number] 2.16.840.1.490338.3.579.2 .727 1992 Unknown [id number] 2.16.840.1.773678.3.579.2 .727 1992 Unknown [id number] 2.16.840.1.578868.3.579.2 .1286 1992 Unknown [id number] 2.16.840.1.913012.3.579.2 .1286 1992 Unknown [id number] 2.16.840.1.632837.3.579.2 .128 1992 Unknown [id number] 2.16.840.1.582464.3.579.2 .1286 1992 Unknown [id number] 2.16.840.1.999575.3.579.2 .1286 1992 Unknown [id number] 2.16.840.1.920180.3.579.2 .1286 1992 Unknown [id number] 2.16.840.1.222576.3.579.2 .1286 1992 Unknown [id number] 2.16.840.1.171373.3.579.2 .1258 1992 Unknown [id number] 2.16.840.1.012326.3.579.2 .1259 1992 Unknown [id number] 2.16.840.1.838504.3.579.2 .1258 1992 Unknown [id number] 2.16.840.1.905465.3.579.2 .9 1992 Unknown [id number] 2.16.840.1.831862.3.579.2 .1258 1992 Unknown [id number] 2.16.840.1.161404.3.579.2 .9 1992 Unknown [id number] 2.16.840.1.037942.3.579.2 .1258 1992 Unknown [id number] 2.16.840.1.048799.3.579.2 .9 1992 Unknown [id number] 2.16.840.1.290737.3.579.2 .1258 1992 Unknown [id number] 2.16.840.1.350899.3.579.2 .1258 1992 Unknown [id number] 2.16.840.1.643514.3.579.2 .9 1959 Private Health Insurance [id number] 1959 Private Health Insurance [id number] 1959 Private Health Insurance [id number] Unknown Unknown [id number] 2.16.840.1.349711.3.579.2 .531 Unknown [id number] 2.16.840.1.451692.3.579.2 .531 Unknown [id number] 2.16.840.1.963321.3.579.2 .531 Unknown [id number] 2.16.840.1.029963.3.579.2 .531 Unknown [id number] 2.16.840.1.862875.3.579.2 .531 Unknown [id number] 2.16.840.1.445163.3.579.2 .531 Unknown [id number] 2.16.840.1.781300.3.579.2 .531 Worker's Compensation [id number] Social History Date Type Detail Facility Start: 04-04-2022 End: 02-18-2023 Tobacco smoking status NHIS Never smoked tobacco (finding) [facility] Start: 1990 Sex Assigned At Female F [facility] Start: 07-09-2023 End: 11-18-2024 Sex Assigned At [facility] Tobacco smoking status Never [facility] Start: 07-13-2024 [facility] Start: 02-25-2019 End: 08-07-2024 Sex Female (finding) [facility] Start: 03-17-2019 End: 02-18-2023 Tobacco use and [...] smoking status NHIS Unknown if ever smoked [facility] Start: 11-21-2024 Alcoholic beverage intake Ex-drinker (finding) [facility] NEGATED: Highlighted row [facility] Goals Date Patient Goal Desired Activity /State Clinical Notes 04-03-2022 to 02-11-2025 Reynold Leslie, JEFFERSON - 02/11/2025 10:50 AM EDTTelephone Encounter - Josey Valentine - 02/04/2025 9:11 AM EDTTelephone Encounter - Josey Reijoel - 02/04/2025 9:11 AM EDT Note Date [...] of thyroid function studies Acid reflux 02/2017 [facility] Alpha thalassemia silent carrier Anemia Endometriosis Fibroid, uterine History of anemia History of hyperthyroidism Hypothyroidism (CMS/HCC) Irregular menses Menometrorrhagia Nontoxic multinodular goiter (CMS/HCC) Overweight (BMI 25.0-29.9) Syncope 06/2016 [facility] Varicella zoster Vitamin D deficiency Social [...] nursing note reviewed. Exam conducted with a power generation plant operator present. Vitals: Estimated body mass index is [...] Reynold Leslie NP documented in this encounter [facility] 02-04-2025 Miscellaneous Notes Formattin g of this note might be different from the original. This pt called this morning to cancel her 02-11 [facility]ca doppler appt. I gave her three alt, apt dates and time, she also declined these as well,I called her dr, dr pendleton I left a message for the nurse. Thank you documented in this encounter [facility] 02-04-2025 Telephone encount er Note This pt called this morning to cancel her 02-11 mca doppler appt. I gave her three alt, apt dates and time, she also declined these as well,I called her dr, dr pendleton I left a message for the nurse. Thank you [facility] 01-28-2025 Miscellaneous Notes Formattin g of this note might be different from the original. I called pt to talked about the apts I scheduled due to [place] being [place] instead documented in this encounter [facility] 01-28-2025 Telephone encount er Note I called pt to talked about the apts I scheduled due to us already being booked [place] scheduled her [place] instead [facility] 01-27-2025 History of Presen t illness [...] of thyroid function studies Acid reflux 02/2017 [facility] Alpha thalassemia silent carrier Anemia Endometriosis Fibroid, uterine History of anemia History of hyperthyroidism Hypothyroidism (CMS/HCC) Irregular menses Menometrorrhagia Nontoxic multinodular goiter (CMS/HCC) Overweight (BMI 25.0-29.9) Syncope 06/2016 [facility] Varicella zoster Vitamin D deficiency Social [...] nursing note reviewed. Exam conducted with a power generation plant operator present. Vitals: Estimated body mass index is [...] Malcolm Pendleton DO documented in this encounter [facility] 01-14-2025 History of Presen t illness Narrative [...] of thyroid function studies Acid reflux 02/2017 [facility] Alpha thalassemia silent carrier Anemia Endometriosis Fibroid, uterine History of anemia History of hyperthyroidism Hypothyroidism (CMS/HCC) Irregular menses Menometrorrhagia Nontoxic multinodular goiter (CMS/HCC) Overweight (BMI 25.0-29.9) Syncope 06/2016 [facility] Varicella zoster Vitamin D deficiency Social [...] Tucker Crohn's disease Sister Thyroid disease Sister Jialyn Leukemia Paternal Grandfather Melanoma Neg Hx SURGICAL [...] nursing note reviewed. Exam conducted with a power generation plant operator present. Vitals: Estimated body mass index is [...] Reynold Leslie NP documented in this encounter [facility] 12-30-2024 History of Presen t illness Narrative Reason for Appointment: Patient ID: Leandra Fonseca is a 34 y.o. female who presents for Routine Visit (Patient was seen at the [facility] on 12/29/2024 for painful genital rash. [...] History of anemia History of hyperthyroidism Hypothyroidism ([facility]) Irregular menses Menometrorrhagia Overweight (BMI 25.0-29.9) Syncope 06/2016 [facility] HISTORY PAST MEDICAL HISTORY SOCIAL HISTORY Past Medical History: Diagnosis Date Acid reflux 02/2017 [facility] Alpha thalassemia silent carrier Anemia Endometriosis Fibroid, uterine History of anemia History of hyperthyroidism Hypothyroidism (CMS/HCC) Irregular menses Menometrorrhagia Overweight (BMI 25.0-29.9) Syncope 06/2016 [facility] Varicella zoster Social History Tobacco Use [...] nursing note reviewed. Exam conducted with a power generation plant operator present. Vitals: Estimated body mass index is [...] Malcolm Pendleton DO documented in this encounter [facility] 12-12-2024 History of Presen t illness Narrative Summary: [facility] Genetic Counseling Note Images from the original note were not included. Provider at different site/location than patient. I confirmed the patient is located in the [facility]. Leandra Fonseca is currently at home and provider at remote site. The patient consented to be treated electronically via this form of telemedicine. This visit was not related to an office visit or procedure in the past 7 days, and in-office follow up is not recommended in the next 24 hours. Video Visit via Real-time Synchronous Audiovisual Provider Location: [facility] AT [address] [address] Patient Location: Patient's home Patient Location Beauty Operator Apprentice: None Video Visit Consent Statement: I discussed [...] that there are some limitations compared to [id number] evaluations. We elected to proceed. Name: Leandra Fonseca : 1990 Date of Visit: 12/12/2024 Email: [email or web address] Preferred contact method: mychart, mail, phone Requesting Physician: Malcolm Pendleton DO [address] [place] [address] Dr [place] [address] Reason for Referral: Leandra Fonseca is a 34 y.o. female who presented to [facility] Telemedicine Clinic for a genetic counseling [...] Screen: YES - low risk Performing lab: [facility] Conditions screened: Trisomy 13, Trisomy 18, Trisomy 21, sex chromosome aneuploidies sex predicted: male fraction: 11.8% Carrier Screening: YES - alpha thalassemia carrier (a-/a-), increased risk Performing lab: [facility] Test type: UNITY Screen Carrier Screen with Reflex sgNIPT NOTE: 05/2019 [facility] Comprehensive Carrier Screen (288 genes) - positive [...] intrauterine consistent with 20w 5d with an MORLAES of 04/05/2025. 2) Transvaginal cervical length measures [...] History: Psychosocial assessment: Father of the baby (FOB) is . Patient is considering adoption. Family History / Pedigree: A three-generation family history was obtained for the patient, however, not for the father of the baby. History was provided by the patient report unless otherwise noted. Of significance, this is ElvisB's first together. Leandra has a healthy 8 [...] neural tube defects, multiple miscarriages, stillborns or infant deaths, and other known genetic conditions. Pedigree [...] low. We reviewed all children born in [place] are screened for alpha thalassemia and sickle [...] the affected family member by a medical accounting clerk or adoption agent may be helpful in defining the condition [...] call or email their genetic counselor at [phone] or [email or web address] if any additional questions or concerns should arise. HARPAL Kunz Licensed, Certified Genetic Counselor documented in this encounter [facility] 12-09-2024 Miscellaneous Notes Formattin g of this note might be different from the original. Attempted to contact patient to schedule Genetic counseling appointment. No answer. LVM requesting patient return call to schedule. documented in this encounter [facility] 12-09-2024 Telephone encount er Note Attempted to contact patient to schedule Genetic counseling appointment. No answer. [facility] requesting patient return call to schedule. [facility] 12-08-2024 Miscellaneous Notes Formattin g of this note might be different from the original. I talked to pt and gave her the times and dates of the new apts Priscilla F made for her. She said they where all fine, thank you documented in this encounter [facility] 12-08-2024 Telephone encount er Note I talked to pt and gave her the times and dates of the new apts Priscilla F made for her. She said they where all fine, thank you [facility] 12-08-2024 History of Presen t illness Narrative [facility] staff note 1. Alpha-thalassemia carrier (a-/a-) with mild anemia. Father of the baby testing unavailable. Unfortunately the father of the baby has . carrier screening high risk for alpha-thalassemia anemia and therefore patient will require every 14 days MCA Doppler studies until 37 weeks gestation. HENNY MONTGOMERY MD documented in this encounter [facility] 11-21-2024 History of Presen t illness [...] No Have you been seen here at [facility] in a previous ? Yes, with G2 Recent ER visits or hospitalizations? No Bring blood sugar log or meter with you today? (Please bring them with you for every visit at [facility]) N/A Flu vaccine (Jul-November)? No Any [...] and the other consultants, we search on L[employer] and all the available care everywhere epic I did review all the imaging studies of the patient available on EMR, ordered by the primary care physician and the other ruby on rails consultant HABITS: Patient activity no restrictions, diet [...] for alpha-thalassemia on the fetus done through [facility] cell free DNA testing 3. Patient is [...] MCA Dopplers at 30 weeks gestation at [facility] office at our [facility] site. DISPOSITION: At this point the patient is in complete care of her hand coper. Patient does have ultrasound scheduled with us. Thank you for allowing me to participate in Leandra Fonseca . If there any questions please do not hesitate to contact us. Sincerely, HENNY MONTGOMERY MD documented in this encounter [facility] 11-18-2024 History of Presen t illness Narrative [...] Visit: 1 year documented in this encounter [facility] 11-10-2024 Evaluation note Diagnosis Onset Date Resolution Anemia acute November 10, 2024 2:45pm Folate deficiency acute Februar 2024 2:45pm Iron deficiency anemia due to chronic blood loss acute November 10 025 2:45pm Vitamin B12 deficiency anemia acute November 10 2:45pm Iron deficiency anemia due to chronic blood loss acute November 10 025 3:16pm [facility] Work Phone: 1(926) 939-668302-18-2025 History of Present illness Narrative* Michell Patten, XANDER - 11/04/2024 9:30 AM EST Reason for [...] Medical History: Diagnosis Date Acid reflux 02/2017 [facility] Alpha thalassemia silent carrier Anemia Endometriosis Fibroid, uterine History of anemia History of hyperthyroidism Hypothyroidism (CMS/HCC) Irregular menses Menometrorrhagia Overweight (BMI 25.0-29.9) Syncope 06/2016 [facility] Varicella zoster Social History Tobacco Use [...] nursing note reviewed. Exam conducted with a power generation plant operator present. Vitals: Estimated body mass index is [...] of: Malcolm Pendleton DO [id number] History of Present illness Narrative* CAROLA Patton [...] Medical History: Diagnosis Date Acid reflux 02/2017 [facility] Alpha thalassemia silent carrier Anemia Endometriosis Fibroid, uterine History of anemia History of hyperthyroidism Hypothyroidism (CMS/HCC) Irregular menses Menometrorrhagia Overweight (BMI 25.0-29.9) Syncope 06/2016 [facility] Varicella zoster Social History Tobacco Use [...] annual exam/routine obstetrics appointment. Patient is currently [id number]. Patient states she is doing well but [...] behalf of: CAROLA Patton documented in this [facility] [id number] History of Present illness Narrative* Michell Patten LPN - 09/11/2024 10:20 AM EST Reason for [...] Medical History: Diagnosis Date Acid reflux 02/2017 [facility] Alpha thalassemia silent carrier Anemia Endometriosis Fibroid, uterine History of anemia History of hyperthyroidism Hypothyroidism (CMS/HCC) Irregular menses Menometrorrhagia Overweight (BMI 25.0-29.9) Syncope 06/2016 [facility] Varicella zoster Social History Tobacco Use [...] nursing note reviewed. Exam conducted with a power generation plant operator present. Vitals: Estimated body mass index is [...] undercooked meat, and stay away from [facility]. Patient has been consulted regarding any [...] of: Malcolm Pendleton DO documented in [facility] [id number] History of Present illness Narrative* Suze Lopez [...] undercooked meat, and stay away from [facility]. Patient has also been advised to [...] by: Suze Lopez LPN documented in this [facility]10-28-2024 Evaluation note* Diagnosis Onset Date Resolution Status Admit Date Abdominal pain acute July 142023 11:39am [facility] Work Phone: [phone] 534-221610-18-2023 Progress note Author Kelly Hough [facility] July 03, 2023 10:09pm Note Date/Time June 27, 2023 1 0:36am [facility] [place] [address] Hem/Onc Follow Up Note - OP Signed Patient: Leandra Fonseca MR#: [id number] : 1990 Acct:[id number] Age/Sex: 33 / F Type: REG RCR Copies to: Yudelka Lopez APRN, BILINGUAL TRAINER-C~ Date of Service: 06/27/2023 Time of Service: [...] [facility] in [place] in 2019. We will request these records, and if they are not available, will plan repeat testing including hemoglobin electrophoresis. In themeantime check b12, folate, copper, epo, reticulocytes, haptoglobin, LDH, and christiano testing. B12 deficiency Will initiate weekly B12 injections x 4, then switch to monthly Follow Up Instructions: b12 weekly x 4 then monthly get [facility] records from 2019- hgb electrophoresis, thalassemia testing [...] cravings denies new complaints. 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 Her heavy days she [...] for coordination of care (as documented) and plit-qc-mgqc counseling of patient and/or family. 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 Given return precautions. [employer] Other 07-18-2023 Progress note Author Kelly Hough [facility] April 03, 2023 9:16am Note Date/Time March 21, 2023 3:35p m [facility] [place] [address] Hem/Onc Follow Up Note - OP Signed Patient: Leandra Fonseca MR#: [id number] : 1990 Acct:[id number] Age/Sex: 32 / F Type: REG RCR [...] cravings denies new complaints. 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 Her heavy days she [...] after visit and call with concerning results [facility] - Medical History Medical History: Medical [...] 25 mg rectal suppository (Anusol-HC) 25 mg ID DAILY 2 weeks #12 ea 02/06/23 [Rx [...] for coordination of care (as documented) and oumh-md-xmpn counseling of patient and/or family. Dictated By: Kelly Hough APRN DD/ 1535 Signed By: <Electronically signed by BETTY Hough> 04/03/23 0916 [facility] Work Phone: [phone]) 810-850104-19-2023 Progress note Author Kelly Hough [facility] January 03, 2023 2:03pm Note Date/Time January 02, 2023 10: 47am [facility] [place] [id number] Hem/Onc Follow Up Note - OP Signed Patient: Leandra Fonseca MR#: [id number] : 1990 Acct:[id number] Age/Sex: 32 / F Type: REG RCR Copies to: Yudelka Lopez APRN, BILINGUAL TRAINER-C~ Subjective Date/Time of Service: Date of Service: [...] cravings denies new complaints. 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 Her heavy days she [...] for coordination of care (as documented) and gwvd-bi-cgvc counseling of patient and/or family. Dictated By: Kelly Hough APRN DD/ 1046 Signed By: <Electronically signed by BETTY Hough> 01/03/23 1403 [facility] Work Phone: [phone]) 994-153704-07-2023 Evaluation note* Encounter Date Diagnosis Assessment Notes Treatment Notes Treatment Clinical Notes Dec, Abdominal pain (ICD-10 - R10.9) Dec, Bloating (ICD-10 - R14.0) Dec, Nausea (ICD-10 - R11.0) [employer] Other 04-06-2023 Evaluation note* Encounter Date [...] from [facility] in 2019 for EGD/Colonoscopy [employer] [facility] [employer] Other 01-17-2023 Consult note Author Kelly Hough [facility] October 03, 2022 1:04pm Note Date/Time October 03, 2022 1 1:23am [facility] [place] [id number] Hem/Onc Consult Note - OP Signed with Gena Patient: Leandra Fonseca MR#: [id number] : 1990 Acct:[id number] Age/Sex: 32 / F Type: REG RCR Copies to: Yudelka Lopez APRN, BILINGUAL TRAINER-C~ ADDENDUM1 Patient had labs after her visit [...] going to the ER with worsening symptoms. [facility] - Medical History Medical History: Medical [...] for coordination of care (as documented) and krlk-qj-vogi counseling of patient and/or family. Dictated By: Kelly Hough APRN DD/ 1123 Signed By: <Electronically signed by BETTY Hough> 10/03/22 1252 [facility] Work Phone: [phone]) 362-217007-18-2022 NotePROCEDURE DETAILS Preoperative Diagnosis: Left abdominal wall endometrioma Postoperative Diagnosis: Same Surgeon: Sly Crocker Resident/Fellow/Other Plate Washer: Ariel Thompson Procedure: 1. LEFT ABDOMINAL WALL TUMOR RESECTION 8X5.5X4CM 2. MESH RECONSTRUCTION ANTERIOR RECTUS FASCIA 7X5CM DEFECT (Bard Soft Mesh) 3. COMPLEX CLOSURE OF A 8CM WOUND Anesthesia: Alan Pardo Estimated Blood Loss: 10ml Findings: 8X5.5X4CM SOFT TISSUE MASS WITH EN BLOC FASCIA AND OVERLYING SKIN PADDLE Specimens(s) Collected: yes, Left anterior wall soft tissue mass -short [id number]:00, long lateral 300 Complications: None Drains and/or [...] without tension or wrinkles. A 10 Fr drain was then placed over this mesh. [...] of the procedure. Note Recipients: Yudelka Lopez, CONCRETE BLOCK LAYER-CUSTOMER ACCOUNTS ADVISOR MALCOLM PENDLETON R - [id number] [] Attestation: Note Completion: Attending AttestationI was present for the entire procedure Electronic Signatures: Sly Crocker) (Signed 03-Apr-2022 17:55) Authored: Post-Operative Note, Chart Review, Note Completion Last Updated: 03-Apr-2022 17:55 by Sly Crocker)[facility]07[facility]18[facility] NoteHistory & Physical Reviewed: /Lactating: [...] the note. I personally evaluated the patient [id number] Electronic Signatures: Miguel Crawford (Resident)) (Signed 03-Apr-2022 12:08) Authored: History & Physical Reviewed, ERAS, Consent, Note Completion Sly Crocker) (Signed 03-Apr-2022 14:42) Authored: Note Completion Co-Signer: History & Physical Reviewed, ERAS, Consent, Note Completion Last Updated: 03-Apr-2022 14:42 by Sly Crocker)[facility] No data available for this section [facility] [place] Evditjixul noteNo assessment information available [facility] Work Phone: Evaluation note* Diagnosis Onset Date Resolution Status Iron deficiency anemia due to chronic blood loss acute [facility] Work Phone: Evaluation note* Diagnosis Onset Date Resolution Status Abdominal pain acute [facility] Work Phone: Evaluation note* Diagnosis Missed menses [...] o chronic blood loss acute October 3:16pm [facility] Work Phone: Evaluation note* Diagnosis Acne vulgaris- Primary Other acne Other atopic dermatitis [facility]* Diagnosis Previous delivery affecting , antepartum- Primary Previous delivery, antepartum condition or complication History of pre-eclampsia in prior , currently in first trimester History of anemia Personal history of diseases of blood and blood-forming organs Choroid plexus cyst of fetus affecting care of mother, antepartum, fetus 1 [facility] Diagnosis History of anemia- Primary Personal history of diseases of blood and blood-forming organs [facility]* Diagnosis Thalassemia alpha carrier- Primary [facility]* Diagnosis Thalassemia alpha carrier- Primary Abnormal genetic test during Family history of sickle cell trait Family history of DVT [facility]* Diagnosis Second trimester state, incidental 26 weeks gestation of Seen in emergency room Exposure to STD HSV (herpes simplex virus) infection Herpes simplex without mention of complication documented in [facility]* Diagnosis Third trimester state, incidental 28 weeks gestation of documented in this encounter [facility]* Diagnosis Third trimester state, incidental 30 weeks gestation of H/O pre-eclampsia in prior , currently H/O delivery, currently Request for sterilization documented in this encounter [facility] Healthcare[facility] note* Diagnosis Thalassemia alpha carrier- [...] in first trimester [facility] Diagnosis Third trimester state, incidental 32 weeks gestation of Nausea Nausea alone documented in this encounter [facility] general Narrative - Reported* Type Description Date Medical History concussion Medical History IBS-C Surgical History C SECTION Hospitalization History see above [employer] Other History of Present illness Narrative* [...] sensorimotor deficits * Extremities: No leg swelling [facility] Work Phone: History of Present illness [...] to the telephone nature of this visit. [facility] Work Phone: Hospital Discharge instructions Additional Instructions If your symptoms return/worsen or you develop any further concerns or symptoms please see your doctor or return to the emergency department immediately.[facility] Work Phone: Hospital Discharge instructions Additional Instructions Follow-up with your primary care doctor Return to ED if you develop worsening symptoms or concerns[facility] Work Phone: Hospital Discharge instructions Additional Instructions Return for worsening symptoms [facility] Work Phone: Hospital Discharge instructions No data available for this section [facility] Hospital Discharge instructions Additional Instructions We evaluated you for your symptoms. Your workup here was unremarkable. Please use the nausea medicine as prescribed. Please follow closely with your primary doctor. Please return to the emergency department if you develop any worsening or concerning symptoms. [facility] Work Phone: InstructionsNot on filedocumented in this encounter [facility]Not on filedocumented in this encounter [facility]ructionsNot on filedocumented in this encounter [facility] SystemInstructionsNot on filedocumented in this encounter [facility]InstructionsNot on filedocumented in this encounter [facility] SystemInstructionsNot on filedocumented in this encounter [facility] note No data available for this section [facility] Summary Purpose Family History No Family [...] section and content) DATE CREATED AUTHOR 04/07/2022 [facility] DATE CREATED AUTHOR AUTHOR'S ORGANIZ ATION 04/23/2022 [employer] DATE CREATED AUTHOR AUTHOR'S ORGANIZ ATION 04/28/2022 [facility] DATE CREATED AUTHOR AUTHOR'S ORGANIZ ATION [facility]/16/[address] [facility] DATE CREATED AUTHOR AUTHOR'S ORGANIZ ATION 12/21/2022 [facility] DATE CREATED AUTHOR AUTHOR'S ORGANIZ ATION 12/11/2023 [facility] DATE CREATED AUTHOR AUTHOR'S ORGANIZ ATION 12/13/2024 [facility] DATE CREATED AUTHOR AUTHOR'S ORGANIZ ATION 01/28/2025 [facility] DATE CREATED AUTHOR AUTHOR'S ORGANIZ ATION 02/11/2025 [facility] DATE CREATED AUTHOR AUTHOR'S ORGANIZ ATION 02/14/2025 [facility] [employer] Care Teams (unrecognized sec tion and content) Team Status: Active Member Role Status Dates Yudelka Lopez APRN BILINGUAL TRAINER-C Primary Care Provider Act klever Team Status: Inactive Member Role Status Dates Yudelka Lopez APRN BILINGUAL TRAINER-C Primary Care Provider Act klever Start: July 14, 2024 End: July 14, 2024 Larry Underwood PA-C Attending Provider Active St art: July 14, 2024 End: July 14, 2024 Team Status: Active Member Role Status Dates Yudelka Lopez APRN BILINGUAL TRAINER-C Primary Care Provider, Re ferring Provider Active Kelly Hough APRN Attending Provider Acti ve Team Status: Inactive Member Role Status Dates Yudelka Lopez APRN BILINGUAL TRAINER-C Primary Care Provider Act klever Horton MD Attending Provider Active Team Status: Inactive Member Role Status Dates Yudelka Lopez APRN BILINGUAL TRAINER-C Primary Care Provider Act klever Allegra Vega PA-C Emergency Provider Active Team Status: Active Member Role Status Dates Yudelka Lopez APRN BILINGUAL TRAINER-C Primary Care Provider, At tending Provider Active Team Status: Inactive Member Role Status Dates Yudelka Lopez APRN BILINGUAL TRAINER-C Primary Care Provider Act kleveralbino Shanks MD Attending Provider Active Dayne Horton MD Referring Provider Active Team Status: Inactive Member Role Status Dates Yudelka Lopez APRN BILINGUAL TRAINER-C Primary Care Provider, At tending Provider Active Team Status: Inactive Member Role Status Dates Yudelka Lopez APRN BILINGUAL TRAINER-C Primary Care Provider Act kleveralbino Silva , Emergency Provider Active Team Status: Inactive Member Role Status Dates Yudelka Lopez APRN BILINGUAL TRAINER-C Primary Care Provider Act klever Sly Crocker MD Attending Provider Active Team Status: Inactive Member Role Status Dates Yudelka Lopez APRN BILINGUAL TRAINER-C Primary Care Provider Act kleveralbino Vega , Emergency Provider Active Team Status: Inactive Member Role Status Dates Yudelka Lopez APRN BILINGUAL TRAINER-C Primary Care Provider Act kleveralbino Greenwood , Emergency Provider Active Team Status: Inactive Member Role Status Dates Yudelka Lopez , CONCRETE BLOCK LAYER BILINGUAL TRAINER-C Primary Care Provider Act klever Marvin Serrano Jr, MD Emergency Provider Active Team Status: Inactive Member Role Status Dates Yudelka Lopez , CONCRETE BLOCK LAYER BILINGUAL TRAINER-C Primary Care Provider Act klever Frank Silva , DO Emergency Provider Active Vicky Fuentes DO RES Active Team Status: Inactive Member Role Status Dates Yudelka Lopez , CONCRETE BLOCK LAYER BILINGUAL TRAINER-C Primary Care Provider Act klever Tejinder Peraza , BILINGUAL TRAINER-C Attending Provider Active Team Status: Inactive Member Role Status Dates Jim Vega , DO Emergency Provider Active Yudelka Lopez , CONCRETE BLOCK LAYER BILINGUAL TRAINER-C Primary Care Provider Act klever Team Status: Inactive Member Role Status Dates Yudelka Lopez , CONCRETE BLOCK LAYER BILINGUAL TRAINER-C Primary Care Provider Act klever Jose Shanks MD Attending Provider Active Team Status: Inactive Member Role Status Dates Yudelka Lopez , CONCRETE BLOCK LAYER BILINGUAL TRAINER-C Attending Provider Active Team Status: Inactive Member Role Status Dates Yudelka Lopez , CONCRETE BLOCK LAYER BILINGUAL TRAINER-C Primary Care Provider Act klever Start: July 14, 2024 End: July 14, 2024 Sarah Dodd DO Emergency Provider Active Start: July 14, 2024 End: July 14, 2024 Lety Dougherty , DO RES Active Sta rt: July 14, 2024 End: July 14, 2024 Team Status: Active Member Role Status Dates Yudelka Lopez , CONCRETE BLOCK LAYER BILINGUAL TRAINER-C Primary Care Provider Act klever Start: August 06, 2024 Marvin Serrano Jr, MD Emergency Provider Active Start: August 06, 2024 Julián Naqvi MD Admit Provide r, Attending Provider Active Start: August 06, 2024 Medical Or Surgical Instrument Maker Relationship Specialty Start Date End Date Sarah Lopez DO [address] [place] [address] Referring Physician Emergency Medicine 02/18/23 Medical Or Surgical Instrument Maker Relationship Specialty Start Date End Date Sarah Lopez DO [address] [place] [address] Referring Physician Emergency Medicine 02/18/23 Medical Or Surgical Instrument Maker Relationship Specialty Start Date End Date Sarah Lopez DO [facility] [place] [address] Referring Physician Emergency Medicine 02/18/23 Medical Or Surgical Instrument Maker Relationship Specialty Start Date End Date Sarah Lopez [address] [place] [id number] Referring Physician Emergency Medicine 02/18/23 Medical Or Surgical Instrument Maker Relationship Specialty Start Date End Date Sarah Lopez [address] [place] [address] [phone] Referring Physician Emergency Medicine 02/18/23 Medical Or Surgical Instrument Maker Relationship Specialty Start Date End Date John Sarah [address] [place] [address] [phone] Referring Physician Emergency Medicine 02/18/23 Medical Or Surgical Instrument Maker Relationship Specialty Start Date End Date Lopez Sarah [address] [place] [id number] Referring Physician Emergency Medicine 02/18/23 Medical Or Surgical Instrument Maker Relationship Specialty Start Date End Date Sarah Lopez [address] [place] [id number] Referring Physician Emergency Medicine 02/18/23 Medical Or Surgical Instrument Maker Relationship Specialty Start Date End Date John Sarah [address] [place] [id number] Referring Physician Emergency Medicine 02/18/23 Medical Or Surgical Instrument Maker Relationship Specialty Start Date End Date John Sarah [address] [place] [id number] Referring Physician Emergency Medicine 02/18/23 Team Status: Inactive Member Role Status Dates Malcolm Pendleton DO Attending Provider Active Start : September 11, 2024 End: September 11, 2024 Team Status: Inactive Member Role Status Dates Ingrid Esquivel APRN Attending Provider Active Start: November 10, 2024 End: November 10, 2024 Yudelka Lopez APRN BILINGUAL TRAINER-C Primary Care Provider Act klever Start: November 10, 2024 End: November 10, 2024 Team Status: Active Member Role Status Dates Yudelka Lopez APRN BILINGUAL TRAINER-C Referring Provider Active Start: November 10, 2024 Kelly Hough APRN Attending Provider Active Start: October Alfie Matthews MD Primary Care Provider Active S tart: November 10, 2024 Medical Or Surgical Instrument Maker Relationship Specialty Start Date End Date Sarah Lopez DO [address] [place] [address] Referring Physician Emergency Medicine 02/18/23 Medical Or Surgical Instrument Maker Relationship Specialty Start Date End Date No Pcp, [place] [address] PCP - General Family Medicine 02/21/24 Medical Or Surgical Instrument Maker Relationship Specialty Start Date End Date No Pcp, [place] [address] PCP - General Family Medicine 02/21/24 Medical Or Surgical Instrument Maker Relationship Specialty Start Date End Date No Pcp, [place] [address] PCP - General Family Medicine 02/21/24 Medical Or Surgical Instrument Maker Relationship Specialty Start Date End Date No Pcp, [place] [address] PCP - General Family Medicine 02/21/24 Medical Or Surgical Instrument Maker Relationship Specialty Start Date End Date No Pcp, [place] [address] PCP - General Family Medicine 02/21/24 Medical Or Surgical Instrument Maker Relationship Specialty Start Date End Date Sarah Lopez DO [address] [facility] [place] [address] Referring Physician Emergency Medicine 02/18/23 Medical Or Surgical Instrument Maker Relationship Specialty Start Date End Date Sarah Lopez DO [address] [place] [address] Referring Physician Emergency Medicine 02/18/23 Medical Or Surgical Instrument Maker Relationship Specialty Start Date End Date Sarah Lopez DO [address] [place] [address] Referring Physician Emergency Medicine 02/18/23 Medical Or Surgical Instrument Maker Relationship Specialty Start Date End Date Sarah Lopez DO [address] [place] [address] Referring Physician Emergency Medicine 02/18/23 Medical Or Surgical Instrument Maker Relationship Specialty Start Date End Date No Pcp, [place] [address] PCP - General Family Medicine 02/21/24 Medical Or Surgical Instrument Maker Relationship Specialty Start Date End Date No Pcp, [place] [address] PCP - General Family Medicine 02/21/24 Team Status: Active Member Role Status Dates PHYSICIAN NO FAMILY Primary Care Provider Active Team Status: Inactive Member Role Status Dates Priscilla Warren PA-C Attending Provider Active Sta rt: January 28, 2025 End: January 28, 2025 PHYSICIAN NO FAMILY Primary Care Provider Active Start: January 28, 2025 End: January 28, 2025 Medical Or Surgical Instrument Maker Relationship Specialty Start Date End Date No Pcp, [place] [address] PCP - General Family Medicine 02/21/24 Medical Or Surgical Instrument Maker Relationship Specialty Start Date End Date Sarah Lopez DO [address] [place] [address] Referring Physician Emergency Medicine 02/18/23 Goals (unrecognized [...] MD [address] [place] [address] Phone: tel: fax: [facility]- Medicine at [facility] [address] [place] [address] Phone: tel: fax: Referral ID Status Reason Start Date Expiration Date Visits Requested Visits Authorized [id number] Pending Review Specialty Services Required 12/09/2024 12/09/2025 1 1 Reason Comments Routine Visit Patient was seen at the [facility] on 12/29/2024 for painful genital rash. [...] BE BASED ON THE PRIMARY CLINICAL RECORDS. [facility]. provides no warranty or guarantee of the accuracy or completeness of information in this document.
--- NOTE | 2025-02-20 06:21 | PC.NURSE ---
Known issue with wisdom tooth, has seen dentist but they will not address it until she delivers her baby next month. She states she has addressed it with Dr. Pendleton, but it was not this bad when she discussed it with him. She cannot sleep or function at this time due to the pain getting so bad.
[2025-02-20] MEDS: HYDROCODONE/ACET 5-325 MG TABLET 2 TAB PO (06:33)
[2025-02-20] MEDS: AMOXICILLIN 500 MG CAPSULE 1000 MG PO (06:34)
== END 2025-02-20 06:39 | disposition home or self-care (01) ==
PROVIDERS: Emergency Provider Internal Medicine
DX: O99.891 Other specified diseases and conditions complicating pregnancy (principal); K08.89 Other specified disorders of teeth and supporting structures; Z3A.33 33 weeks gestation of pregnancy
CPT/HCPCS: 99283

== ENCOUNTER 2025-02-26 10:57 | Outpatient (OUT) | payer OTHER, MEDICAID, SELFPAY ==
[2025-02-26 11:02] VITALS: BP 118/62; PULSE 77
--- NOTE | 2025-02-26 11:54 | US_ITS ---
[place] [id number] Patient Name: LISHA FONSECA MRN: [id number] date: 1990 Sex: F Assigned Patient Location: US Current Patient Location: ED.MAIN Accession/Order Number: [id number] Exam Date: 02/26/2025 13:13 Report Date: 02/26/2025 13:13 At the request of: MARIA HARTLEY DO Procedure: US OB BPP w non-stress Biophysical profile. Reason for exam: LGA. COMPARISON: BPP 02/19/2025. TECHNIQUE: Transabdominal imaging of the gravid uterus was obtained. FINDINGS: Anthropology Instructor reports a BPP of 8 out of 8. VIDA is normal at 16.4 cm. heart rate 135 bpm. US/US OB BPP w non-stress IMPRESSION: BPP 8 out of 8. Impression dictated by: Leroy Mancera Jr., D.O. 02/26/2025 1:13 PM Dictation Location: [place] [address] Electronically authenticated by: [id number] Y Date: 02/26/2025 13:13
== END 2025-02-26 12:15 | disposition home or self-care (01) ==
LOC: US 10:57 → FBC 10:59
PROVIDERS: Visit Provider Obstetrics & Gynecology
DX: O26.893 Other specified pregnancy related conditions, third trimester (principal)
CPT/HCPCS: 76818

== ENCOUNTER 2025-03-02 08:00 | Outpatient (OUT) | payer OTHER, MEDICAID, SELFPAY ==
--- OUTSIDE RECORDS SUMMARY | 2022-11-20 08:27 | XMS_ITS | Continuity of Care Document ---
Author Organization [facility] Address [address] [place] [address] Phone Care Team Providers Care L D Rn Name Role Phone Dawson Hernandez Unavailable Unavailable [...] Diagnoses Date Provider Providers Copied on Encounter [facility], [address] [place], [place], [address], [place] tel:[phone] [facility] No Information Nov-0 3 Vida Conrad. [address] [place], [place], [address] , [place]. tel:[phone] [facility], [address] [place], [place], [address], [place] tel:[phone] [facility] No Information Elinaruchi Dawson. [address] [place], [place], [address] , [place]. tel: [phone] PREV VISIT, NEW, AGE 18-39 [facility], [address] [place], [place], [address], [place] tel:[phone] [facility] establish care (chief complaint)b irth control (chief complaint) Gynecological ExaminationOther specified contraceptive management 4 Prashanth [facility] Maggy. [address] [place], [place], [address] , [place]. tel: [phone] Family History Family Member Type Diagnosis Age [...] Insurance type Covered democrat ID Authoriza tion(s) [facility] CI [id number] Medicaid Wrap - [facility] [place] [id number] [facility] [id number] Medicaid Wrap - [facility] [place] [id number] Social History Type Description Quantity Date Captured [...]
--- OUTSIDE RECORDS SUMMARY | 2024-07-23 09:30 | XMS_ITS ---
Author Organization [facility] Address [address] [place] [address] Care Team Providers Care Billing Control Clerk Name Role Phone Yudelka Lopez Primary Care Provider [phone] Leroy Salazar Unavailable [phone] REASON FOR VISIT cough, congestion Encounters Encounter Location Date Provider Diagnosis [facility] [address] [place] [address] 07/23/2024 Yudelka Lopez Plan Of Treatment No Information Progress Notes * LISHA FONSECA GDOB: [birth year] (34 yo F)Acc No.[id number]:07/23/2024 PROGRESS NOTES Patient: Deb SANCHEZ LISHA Moe Provider: Rowan Lopez :1990 A ge:34 Y S ex:Female Date:07/23/2024 Address:[address], [place] [id number] Subjective: * Chief Complaints: * 1 . Cough, congestion. * Medical History: Objective: * Vitals: Assessment: Plan: * Treatment: * Images: * Electronic signature of Howard Lopez CNP on 03/02/2025 at 08:01 AM EDT Sign off status: Pending * Provider: Rowan Lopez Date: 09/22/2023 Generated for Damon dailey/Timothy/eTransmitting on: 0 03/02/2025 08:01 AM EDT
--- OUTSIDE RECORDS SUMMARY | 2024-11-28 05:20 | XMS_ITS ---
Author Organization [facility] Servic es Address [address] [facility] [place] [place] [address] Care Team Providers Care Fur Dressing Supervisor Name Role Phone Yudelka Lopez Primary Care Provider Dr. Leroy Salazar Unavailable [phone] REASON FOR VISIT new pt Encounters Encounter Location Date Provider Diagnosis [facility] Services [address] [place] [address] 11/28/2024 Leroy Salazar Plan Of Treatment No Information Progress Notes * LISHA FONSECA GDOB: [birth year] (34 yo F)Acc No.[id number]:11/28/2024 Patient: ISAAK AMLCOLMLEY Moe Provider: Deb Salazar DDS :1990 A ge:34 Y S ex:Female Date:11/28/2024 Address:[address] [place] [address], [address], [id number] Pcp:Yudelka Lopez Subjective: * Chief Complaints: * 1 . New pt. * Medical History: Objective: * Vitals: Assessment: Plan: * Treatment: * Images: * Electronic signature of Dr. Leroy Salazar , DMD on 03/02/2025 at 08:02 AM EDT Sign off status: Pending * Provider: Deb Salazar DDS Date: 11/28/2024 Generated for Printi ng/Faxing/eTransmitting on: 0 03/02/2025 08:02 AM EDT
--- OUTSIDE RECORDS SUMMARY | 2025-03-02 08:02 | XMS_ITS | Encounter Summary ---
Author Organization [facility] Address [address] [place] [address] Phone Care Team Providers Care Laminated Plastics Assembler And Gluer Name Role Phone Yudelka Lopez Primary Care Provider + Encounter Details Date Type Department Care Team (Late st Contact Info) Description 03/31/2022 Orders Only [facility] [address] [place] [address] Conversion, Onbase Social History Tobacco Use Types [...] on filedocumented in this encounter Care Teams Laminated Plastics Assembler And Gluer Relationship Specialty Start Date End Date Yudelka Lopez APRN-CNP [address] [place] [address] PCP - General 01/20/23 documented as of this encounter
--- OUTSIDE RECORDS SUMMARY | 2025-03-02 08:02 | XMS_ITS | Clinical Summary ---
Author Organization [facility] Address [id number] [address] [place] [address] Care Team Providers Care Can Marker Name Role Phone No Pcp, No [...] Encounters Date Type Department Care Team Description 02/26/2025 Telephone Maternal- Medicine at [facility] [address] [place] [address] Caroline Chavira RN 02/04/2025 Telephone Maternal Medicine [place] [address] [facility] [facility] [address] [place] [address] Josey Valentine 01/28/2025 Orders Only Maternal- Medicine at [facility] [address] [place] [address] Marci Coppola CMA Thalassemia alpha carrier (Primary Dx); Family history of sickle cell trait; Family history of DVT; History of anemia; Choroid plexus cyst of fetus affecting care of mother, antepartum, fetus 1; Abnormal genetic test during ; Previous delivery affecting , antepartum; History of pre-eclampsia in prior , currently in first trimester 01/28/2025 Telephone Maternal Medicine [place] [address] [facility] [place] [address] Josey Valentine 01/27/2025 9:56 AM EDT - 01/27/2025 11:59 PM EDT Hospital Encounter [facility] - Ultrasound [address] [place] [address] History of anemia Discharge Disposition: Home 01/27/2025 Travel 01/13/2025 9:00 AM EDT - 01/13/2025 11:59 PM EDT Hospital Encounter [facility] - Ultrasound [address] [place] [address] Alpha thalassemia silent carrier Discharge Disposition: Home 01/13/2025 Travel 12/16/2024 8:46 AM EDT - 12/16/2024 11:59 PM EDT Hospital Encounter [facility] - Ultrasound [address] [place] [address] Alpha thalassemia silent carrier Discharge Disposition: Home 12/16/2024 Travel 12/12/2024 9:00 AM EDT Telemedicine Maternal- Medicine at [facility] [address] [place] [address] Torey Montgomery MD Allen, Jo P, LGC Thalassemia alpha carrier (Primary Dx); Abnormal genetic test during ; Family history of sickle cell trait; Family history of DVT 12/12/2024 Travel 12/09/2024 Telephone Maternal- Medicine at [facility] [address] [place] [address] Natalie Díaz, ROMEO 12/09/2024 Orders Only Maternal- Medicine at [facility] [address] [place] [address] Natalie Díaz, RN Choroid plexus cyst of fetus affecting care of mother, antepartum, fetus 1 12/09/2024 Orders Only Maternal- Medicine at [facility] [address] [place] [address] Natalie Díaz RN Thalassemia alpha carrier (Primary Dx) 12/08/2024 Telephone Maternal- Medicine at [facility] [address] [place] [address] Josey Valentine 12/08/2024 Documentation Maternal- Medicine at [facility] [address] [place] [address] Torey Montgomery MD 12/01/2024 Orders Only Maternal- Medicine at [facility] [address] [place] [address] Natalie Díaz, RN Choroid plexus cyst of fetus affecting care of mother, antepartum, fetus 1 from Last 3 Months Family History Medical [...] 11/21/2024 9:53 AM EST Plan of Treatment Health Maintenance [...] 10:46 AM EDT History of anemia US MFM LMTD OB, 1 OR MORE FETUS Routine 01/13/2025 9:29 AM EDT Alpha thalassemia silent carrier US MFM LMTD OB, 1 OR MORE FETUS Routine 12/16/2024 9:44 AM EDT Alpha thalassemia silent carrier from Last 3 Months Results * US MFM OB FOLLOW-UP, 1 FETUS (01/27/2025 10:46 AM EDT) Only the most recent of3 resultswithin the time period is included. Anatomical Region Laterality Modality OB-OPERATOR SUPPLY Ultrasound 01/27/2025 10:0 9 AM EDT Narrative 01/27/2025 11:10 AM EDT NAME: MARIAN HUSAIN : 1990 SEX: F Accession Number: [id number] ORDERING PHYSICIAN: TOREY MONTGOMERY REFERRING PHYSICIAN: MARIA HARTLEY Coding ----- --------- Procedures 61236: Follow-up Ultrasound, per fetus [address]: Doppler velocimetry, ; middle cerebral artery Indication [...] EFW (oz) 3 oz EFW by: Hadlock ([id number]) Extended Tibia 48.0 mm 29w 0d 16% Osiel Associate Producer 3.6 mm CM 5.9 mm 19% Nicolaides [...] Heart/Thorax: 4-chamber view. RVOT view. LVOT view. 6-hhwzhg-ntcniif view. Situs. Aortic arch view. Bicaval view. [...] PI 1.99 30% [place] RI 0.84 71% [facility] PS 50.72 cm/s PS 1.24 MoM [...] HUSAIN : 1990 SEX: F Accession Number: [id number] ORDERING PHYSICIAN: TOREY MONTGOMERY REFERRING PHYSICIAN: MARIA HARTLEY Coding ----- --------- Procedures [id number]: Follow-up Ultrasound, per fetus 34655: Doppler velocimetry, ; middle cerebral artery Indication [...] EFW (oz) 3 oz EFW by: Hadlock ([id number]) Extended Tibia 48.0 mm 29w 0d 16% Osiel Associate Producer 3.6 mm CM 5.9 mm 19% Nicolaides [...] Heart/Thorax: 4-chamber view. RVOT view. LVOT view. 7-uwhleu-ifjfnbi view.Situs. Aortic arch view. Bicaval view. Ductal [...] PI 1.99 30% [place] RI 0.84 71% [facility] PS 50.72 cm/s PS 1.24 MoM [...] byprimary OB provider unless otherwise specified by [facility]. Results forwarded to ordering provider so they can follow up with thepatient as necessary. us Torey Montgomery MD [facility] US ORDERABLES Final Resul t from Last 3 Months Insurance [facility] MEDICAID [employer] Care Teams Can Marker Relationship Specialty Start Date End Date No Pcp, No Pcp KRISTOPHER [place] [address] PCP - General Family Medicine 02/21/24
--- OUTSIDE RECORDS SUMMARY | 2025-03-02 08:02 | XMS_ITS | Clinical Summary ---
Author Organization [facility] Address [address] [place] [address] Phone Care Team Providers Care Hydrogen Cell Tender Name Role Phone Yudelka Lopez APRN-BENCH ASSEMBLER OPERATOR Primary Care Provider + Social History Tobacco [...] this topic Medical Devices Implanted Type Area Service Station Operator Device Identifier Shelf Expiration Date Model / Serial / Lot Mesh, Softmesh 3 X 6, Flat Case [id number] Implanted:Qty: 1 on 04/03/2022 by Sly Crocker MD MPH Mesh Abdomen DAVOL 05/14/2024 [id number] / / [id number] Description:Converted from [facility] Acute. Please see archived information for full log information. Care Teams Hydrogen Cell Tender Relationship Specialty Start Date End Date Yudelka Lopez, FOUNTAIN JERK-BENCH ASSEMBLER OPERATOR [address] [place] [address] PCP - General 01/20/23
--- OUTSIDE RECORDS SUMMARY | 2025-03-02 08:02 | XMS_ITS ---
Author Organization [facility] (ClinicalSummary Clone) Address Unknown Care Team Providers Care Stone Sawyer Name Role Phone Unavailable Primary Care Physician Unavailab le Results * [UNITY] CARRIER SCREEN Performed by: [employer] Component Value Range Date Fraction 8.4% 12/03/2024 [...]
--- OUTSIDE RECORDS SUMMARY | 2025-03-02 08:02 | XMS_ITS ---
Author Organization [facility] (ClinicalSummary Clone) Address Unknown Care Team Providers Care Debarker Operator Name Role Phone Unavailable Primary Care Physician Unavailab le Results * [UNITY] ANEUPLOIDY NIPT Performed by: [facility] ([facility]) Component Value Range Date Fraction 11.8% 11/27/2024 [...]
--- OUTSIDE RECORDS SUMMARY | 2025-03-02 08:02 | XMS_ITS | Encounter Summary ---
Author Organization [facility] Address [id number] [address] [place] [address] Care Team Providers Care Sales Recruitment Specialist Name Role Phone No Pcp, No Pcp Primary Care Provider Unavailabl e Encounter Details Date Type Department Care Team (Late st Contact Info) Description 12/01/2024 Orders Only Maternal- Medicine at [facility] [address] [place] [address] Natalie Díaz, RN Choroid plexus cyst of [...] as of this encounter Plan of Treatment Not on file documented as of this encounter Procedures Procedure [...] 1 documented in this encounter Care Teams Sales Recruitment Specialist Relationship Specialty Start Date End Date No Pcp, [place] [address] PCP - General Family Medicine 02/21/24 documented as of this encounter
--- OUTSIDE RECORDS SUMMARY | 2025-03-02 08:02 | XMS_ITS | Encounter Summary ---
Author Organization [facility] Address [id number] [address] [place] [address] Care Team Providers Care Acquisitions Editor Name Role Phone No Pcp, No Pcp Primary Care Provider Unavailabl e Encounter Details Date Type Department Care Team (Late st Contact Info) Description 10/10/2024 Abstract Maternal- Medicine at [facility] [address] [place] [phone] Torey Barnett MD [address] [place] [address] Social History Tobacco Use Types Packs/Day Years [...] ORDERABLES Larissa l Result Performing Organization Address City/[facility] Co de Phone Number MANUALLY TRANSCRIBED RESULTS * Syphilis Total(Unknown Syphilis Status) (09/11/2024) Syphilis Total non- reactive MANUALLY TRANSCRIBED RESULTS us Not In System Ref Prov LAB BLOOD ORDERABLES Larissa l Result Performing Organization Address City/[facility] Co de Phone Number MANUALLY TRANSCRIBED RESULTS documented in this encounter Visit Diagnoses Not on filedocumented in this encounter Care Teams Acquisitions Editor Relationship Specialty Start Date End Date No Pcp, [place] [address] PCP - General Family Medicine 02/21/24 documented as of this encounter
--- OUTSIDE RECORDS SUMMARY | 2025-03-02 08:02 | XMS_ITS | Encounter Summary ---
Author Organization [facility] Address [id number] [address] [place] [address] Care Team Providers Care High School Music Instructor Name Role Phone No Pcp, No Pcp Primary Care Provider Unavailabl e Encounter Details Date Type Department Care Team (Late st Contact Info) Description 12/09/2024 Orders Only Maternal- Medicine at [facility] [address] [place] [address] Natalie Díaz, RN Choroid plexus cyst of [...] MD LAB BLOOD ORDERABLES Final Re sult [facility] documented in this encounter Visit Diagnoses Diagnosis Choroid plexus cyst of fetus affecting care of mother, antepartum, fetus 1 documented in this encounter Care Teams High School Music Instructor Relationship Specialty Start Date End Date No Pcp, [place] [address] PCP - General Family Medicine 02/21/24 documented as of this encounter
--- OUTSIDE RECORDS SUMMARY | 2025-03-02 08:02 | XMS_ITS | Patient Health Record ---
[facility] [address] [place] [address] Care Team Providers Care Batch And Furnace Operator Name Role Phone Yudelka Lopez Primary Care Provider [phone] Leroy Salazar Unavailable [phone] Allergies Allergen (clinical drug ingredient) Drug/Non Drug Allergy documented on EMR Reaction Allergy Type Onset Date Status labetalol Labetalol HCl shortness of breath Drug Allergy Active Results Component Value Reference Range Notes BioFire Detected (Not yet re viewed by provider) Interpretation: Performing Lab:, [facility], [address] [facility] Notes/Report: BioFire Detected Detected Not Detecte This is a duplicate RP2.1 COVID (PCR) result to be used for statistical tracking purpose only. Dipstick and Microscopic (No t yet reviewed by provider) Interpretation: Performing Lab:, [facility], [address] [facility] Notes/Report: Name Collection Type:: Clean-Voided Midstream Color,Urine Light-Yellow Yellow Appearance,Urine Clear Clear Specificy [place],Urine 1.011 1.001-1.030 pH,Urine 6.5 5.0-9.0 Leukocyte Esterase,Urine [...] yet reviewed by provider) Interpretation: Performing Lab:, [facility], [address] Notes/Report: Adenovirus Not detected [...] reviewe d by provider) Interpretation: Performing Lab:, [facility], [address] [place] Notes/Report: Streptococcus [...] yet reviewed by provider) Interpretation: Performing Lab:, [facility], [address] [place] Notes/Report: For [...] et reviewed by provider) Interpretation: Performing Lab:, [facility], [address] Notes/Report: Glucose 73 70-100 [...] Reviewed date:08/07/2024 07:53:16 AM Interpretation: Performing Lab:, [facility], [address] Notes/Report: Ethanol <10 Percent Ethanol TNP Complete Blood Count Auto Di ff Reviewed date:08/07/2024 07:53:16 AM Interpretation: Performing Lab:, [facility], [address] Notes/Report: White Blood Count [...] Reviewed date:08/07/2024 07:53:16 AM Interpretation: Performing Lab:, [facility], [address] [facility] Notes/Report: Approximate Approximate hCG Gestational Age Range (mIU/ml) (weeks) 0.2-1 5-50 1-2 50-500 2-3 100-5,000 3-4 500-10,000 4-5 1,000-50,000 5-6 10,000-100,000 6-8 15,000-200,000 8-12 10,000-100,000 HCG,Quantitative 56397.00 Comprehensive Metabolic Pane l Reviewed date:08/07/2024 07:53:16 AM Interpretation: Performing Lab:, [facility], [address] [place] Notes/Report: Glucose [...] date:07/14/2024 04:15:57 PM Interpretation: Performing Lab: Notes/Report: [facility] Main [place] [address] [place] [address] CT Scan Report Signed Patient: Lisha Fonseca MR#: [id number] : 1990 Acct:[id number] Age/Sex: 34 / F ADM Date: 07/14/24 Loc: ER Room: Type: [facility] ER Attending Dr: Copies to: DO [...] Mancera Jr., D.OJorge07/14/2024 2:43 PM Dictation Location: [facility]23 Transcribed By: PWS 07/14/24 1443 Dictated By: Leroy Mancera Jr, DO 07/14/24 1438 Signed By: <Electronically signed by Leroy Mancera Jr, DO in OV> 07/14/24 1443 COVID-19 / Flu A/B / RSV PCR Reviewed date:07/14/2024 05:15:14 PM Interpretation: Performing Lab:, [facility], [address], [place] Notes/Report: COVID-19 Cepheid Result Negative for KELLY S-CoV-2 RNA by RT-PCR Flu A Cepheid Result Negative for Flu A RNA by RT-PCR Flu B Cepheid Result Negative for Flu B RNA by RT-PCR RSV Cepheid Result Negative for RSV RNA by RT-PCR COVID19 Blank Space ---- ------ Reference: Negative COVID19 Blank Space ---- ------ Cepheid Disclaimer The CepArtklikkid Xpert Xp ress CoV-2/Flu/RSV Plus has Inkive Disclaimer not been FDA cleared or approved; this test has Inkive Disclaimer been authorized by Bryce BRANCH under [...] Reviewed date:07/14/2024 05:15:14 PM Interpretation: Performing Lab:, [facility], [address], [place] Notes/Report: Name Collection Type:: Clean-Voided Midstream Color,Urine Yellow Yellow Appearance,Urine Clear Clear Specificy [place],Urine 1.030 1.001-1.030 pH,Urine 6.0 5.0-9.0 Leukocyte Esterase,Urine [...] Reviewed date:07/14/2024 05:15:14 PM Interpretation: Performing Lab:, [facility], [address]carlos [address], [place] MD Notes/Report: This is a duplicate Cepheid Xpert Xpress CoV-2/Flu/RSV Plus RNA by RT-PCR result to be used for statistical tracking purpose only. Cepheid COVID PCR Negative Negative Negative HCG,Urine Reviewed date:07/14/2024 05:15:14 PM Interpretation: Performing Lab: Notes/Report: Name Collection Type:: Clean-Voided Midstream HCG Qualitative,Urine Negative Complete Blood Count Auto Di ff Reviewed date:07/14/2024 05:15:14 PM Interpretation: Performing Lab:, [facility], [address] [place] Notes/Report: For [...] Reviewed date:07/14/2024 05:15:14 PM Interpretation: Performing Lab:, [facility], [address] Notes/Report: Total Protein 7.2 [...] down, depressed, or hopeless More than h prison the days Trouble falling or staying a [...] 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 Stress is when someone feels tense, nervous, anxious, or cant sleep at night because their mind is troubled Not at all In the past year have you sp ent more than 2 nights in a row in a senior care, residential, chcf center, or juvenile correctional facility? No Are [...] Problem Status W/U Status Risk Notes Problem 02816816 Hyperthyroidism (E05.90) Active confirmed Problem 110915905 Thyroid nodule (E04.1) Active confirmed Problem 56099332 Iron deficiency anemia, unspecified iron deficiency anemia type (D50.9) Active confirmed Problem 7173832 Migraine with au ra and without status migrainosus, not intractable (G43.109) Active confirmed Problem 028649608 Endometriosis (N80.9) Active confirmed Problem 069689411 Anxiety disorder , unspecified (F41.9) Active confirmed Encounters Encounter Location Date Provider Diagnosis [facility] [address] [facility] [place] [address] 12/19/2024 Leroy Salazar Encounter for dental examination and cleaning with abnormal findings Z01.21 ; Other dental procedure status Z98.818 ; Cracked tooth K03.81 ; Necrosis of pulp K04.1 and Dental caries on pit and fissure surface penetrating into dentin K02.52 [facility] [address] [place] [address] 07/18/2024 Yudelka [facility] [address] [place] [address] 08/13/2024 Yudelka Lopez Assessments Encounter Date Diagnosis [...] Insured Coverage Start Date Coverage End Date [facility] [address] [place] [address] [id number] LISHA FONSECA Other 1 [employer] [place] Medicaid [address] [place] [address] [id number] LISHA FONSECA Self - patient is the insured 3 3 Wrap [employer] [facility] [address] [place] [address] [id number] LISHA FONSECA Self - patient is the insured 3 3 Wrap [employer] [place] [address] [place] [address] [id number] LISHA FONSECA Self - patient is the insured 3 zDENTAL DQ [facility] [place]P [place]-termed 22 [address] [place] [address] [id number] LISHA FONSECA Self - patient is the insured 2 zDental MEDICAID [facility] after [facility] CHP-terme d 22 [address] [place] [phone] [id number] LISHA FONSECA Self - patient is the insured 2 DENTAL HU[employer] [address] [address] [place] [address] [id number] LISHA FONSECA 5 Dental Wrap [facility] [employer] [address] [place] [address] [id number] LISHA FONSECA Self - patient is the insured 5 Dental [employer] DQ [address] [address] [place] [address] [id number] LISHA FONSECA Self - patient is the insured 5 Medical (General) History Medical History History ICD Code hypertension anemia Covid 19 Surgical History Surgery Date(Month/Year) section-x2 Endometrial Tumor Resection 04/03/22 Hospitalization History Reason Date(Month/Year) see surgical Child x2
--- OUTSIDE RECORDS SUMMARY | 2025-03-02 08:02 | XMS_ITS | Clinical Summary ---
Author Organization [facility] Address [address] [place] [address] Care Team Providers Care Telephone Clerk Name Role Phone Unavailable Primary Care Provider [...] (2 - Td or Tdap) 01/09/2026 Insurance [facility] COMMUNITY PLAN [place]
--- OUTSIDE RECORDS SUMMARY | 2025-03-02 08:02 | XMS_ITS | Encounter Summary ---
Author Organization [facility] Address [id number] [address] [place] [address] Care Team Providers Care Grounds Manager Name Role Phone No Pcp, No Pcp Primary Care Provider Unavailabl e Encounter Details Date Type Department Care Team (Late st Contact Info) Description 02/26/2025 Telephone Maternal- Medicine at [facility] [address] [place] [address] Caroline Chavira RN Social History Tobacco Use Types Packs/Day Years [...] encounter Miscellaneous Notes * Telephone Encounter - Caroline Chavira RN - 02/26/2025 2:23 PM EDT Attempted to reach patient in regards to missed appt, no answer, left VM documented in this encounter Plan of Treatment Not on file documented as of this encounter Visit Diagnoses Not on filedocumented in this encounter Care Teams Grounds Manager Relationship Specialty Start Date End Date No Pcp, [place] [address] PCP - General Family Medicine 02/21/24 documented as of this encounter
--- OUTSIDE RECORDS SUMMARY | 2025-03-02 08:02 | XMS_ITS | Clinical Summary ---
Author Organization [facility] Address [address] [place] [address] Care Team Providers Care Instrument Technician Helper Name Role Phone Unavailable Primary Care Provider [...] Plan of Treatment Not on file Insurance [facility] [place] Advance Directives * Full Code (Latest Code Status on File) Date Activated Date Inactivated Comments 01/06/2016 3:26 PM 01/10/2016 9:07 PM * Full Code Date Activated Date Inactivated Comments 01/06/2016 12:49 PM 01/06/2016 3:26 PM * Full Code Date Activated Date Inactivated Comments 01/05/2016 8:33 PM 01/06/2016 12:49 PM
[2025-03-02 08:07] VITALS: BP 126/69; PULSE 90
== END 2025-03-02 08:40 | disposition home or self-care (01) ==
LOC: FBCO 08:00 → FBC 08:02
PROVIDERS: Visit Provider Obstetrics & Gynecology
DX: O26.893 Other specified pregnancy related conditions, third trimester (principal); Z3A.35 35 weeks gestation of pregnancy
CPT/HCPCS: 59025

== ENCOUNTER 2025-03-05 11:03 | Outpatient (OUT) | payer OTHER, MEDICAID, SELFPAY ==
--- OUTSIDE RECORDS SUMMARY | 2022-11-20 08:27 | XMS_ITS | Continuity of Care Document ---
Author Organization [facility] Address [address] [place] [address] Phone Care Team Providers Care Business Intelligence Analyst Name Role Phone Dawson Hernandez Unavailable Unavailable [...] Diagnoses Date Provider Providers Copied on Encounter [facility], [address] [place], [place], [id number], [place] tel:[phone] [facility] No Information Nov-0 3 Vida Conrad. [address] [place], [place], [address] , [place]. tel:[phone] [facility], [address] [place], [place], [address], [place] tel:[phone] [facility] No Information Elinaruchi Dawson. [address] [place], [place], [address] , [place]. tel: [phone] PREV VISIT, NEW, AGE 18-39 [facility], [address] [place], [place], [address], [place] tel:[phone] [facility] establish care (chief complaint)b irth control (chief complaint) Gynecological ExaminationOther specified contraceptive management 4 Prashanth [facility] Maggy. [address] [place], [place], [address] , [place]. tel: [phone] Family History Family Member Type Diagnosis Age [...] Registry Payers Payer name Insurance type Covered green party ID Authoriza tion(s) [facility] CI [id number] Medicaid Wrap - [facility] [place] [id number] [facility] [id number] Medicaid W[place] - [facility] [place] [id number] Social History Type Description Quantity Date Captured [...]
--- OUTSIDE RECORDS SUMMARY | 2024-07-23 09:30 | XMS_ITS ---
Author Organization [facility] Address [address] [place] [address] Care Team Providers Care Medical Clinic Manager Name Role Phone Yudleka Lopez Primary Care Provider [phone] Leroy Salazar Unavailable [phone] REASON FOR VISIT cough, congestion Encounters Encounter Location Date Provider Diagnosis [facility] [address] [place] [address] 07/23/2024 Yudelka Lopez Plan Of Treatment No Information Progress Notes * LISHA FONSECA GDOB: [birth year] (34 yo F)Acc No.[id number]:07/23/2024 PROGRESS NOTES Patient: Deb SANCHEZ LISHA Moe Provider: Rowan Lopez :1990 A ge:34 Y S ex:Female Date:07/23/2024 Address:[address], [id number] Subjective: * Chief Complaints: * 1 . Cough, congestion. * Medical History: Objective: * Vitals: Assessment: Plan: * Treatment: * Images: * Electronic signature of Howard Lopez CNP on 03/05/2025 at 11:05 AM EDT Sign off status: Pending * Provider: Rowan Lopez Date: 09/22/2023 Generated for Damon dailey/Timothy/eTransmitting on: 0 03/05/2025 11:05 AM EDT
--- OUTSIDE RECORDS SUMMARY | 2024-11-28 05:20 | XMS_ITS ---
Author Organization [facility] Servic es Address [address] [facility] [place] [address] Care Team Providers Care Complex Case Manager Name Role Phone Yudelka Lopez Primary Care Provider [phone] Leroy Salazar Unavailable [phone] REASON FOR VISIT new pt Encounters Encounter Location Date Provider Diagnosis [facility] Services [address] [place] [address] 11/28/2024 Leroy Salazar Plan Of Treatment No Information Progress Notes * LISHA FONSECA GDOB: [birth year] (34 yo F)Acc No.[id number]:11/28/2024 Patient: ISAAK MALCOLMLEY Moe Provider: Deb Salazar DDS :1990 A ge:34 Y S ex:Female Date:11/28/2024 Address:[address] [place] [address], [address], [facility] Pcp:Yudelka Lopez Subjective: * Chief Complaints: * 1 . New pt. * Medical History: Objective: * Vitals: Assessment: Plan: * Treatment: * Images: * Electronic signature of Dr. Leroy Salazar , DMD on 03/05/2025 at 11:05 AM EDT Sign off status: Pending * Provider: Deb Salazar DDS Date: 11/28/2024 Generated for Printi ng/Faxing/eTransmitting on: 03/05/2025 11:05 AM EDT
--- OUTSIDE RECORDS SUMMARY | 2025-02-24 11:40 | XMS_ITS | Encounter Summary ---
Author Organization [facility] Address [address] [place] [address] Care Team Providers Care Cupola Hoist Operator Name Role Phone Sarah Lopez DO Unavailable [phone] Reason for Visit * Reason Comments Routine Visit Encounter Details Date Type Department Care Team (Late st Contact Info) Description 02/24/2025 11:40 AM EDT Routine [facility] OB [address] [place] [address] Malcolm Pendleton DO [address] [facility] [address] Mary Garcia, [facility]11 34 weeks gestation of ([facility]); Third trimester ([facility]) Social History Tobacco Use Types Packs/Day Years [...] nursing note reviewed. Exam conducted with a geological engineer present. Vitals: Estimated body mass index is [...] Care Team (Late st Contact Info) Description 03/10/2025 11:10 AM EDT Routine [facility] OB [address] [facility] [place] [address] Malcolm Pendleton, [address] [facility] [address] Mary Garcia, [place] [id number] 11/19/2025 10:50 AM EST Office Visit [facility] [address] [place] [address] Kayleigh Chung, PLASTIC SURGERY SPECIALIST-STRATEGY INTERN [address] [place] [address] documented as of this encounter Procedures Procedure Name Priority Date/Time Associated Diagnosis Comments POCT URINALYSIS DIPSTICK Routine 02/24/2025 12:05 PM EDT 34 weeks gestation of ([facility]) Third trimester ([facility]) documented in this encounter Results * (ABNORMAL) [...] Visit Diagnoses Diagnosis 34 weeks gestation of ([facility]) Third trimester ([facility]) state, incidental documented in this encounter Care Teams Cupola Hoist Operator Relationship Specialty Start Date End Date Sarah Lopez DO [address] [place] [id number] Referring Physician Emergency Medicine 02/18/23 documented as of this encounter
--- NOTE | 2025-03-05 | US_ITS ---
The [place] [id number] Patient Name: LISHA FONSECA MRN: [id number] date: 1990 Sex: F Assigned Patient Location: [facility] Current Patient Location: [facility] Accession/Order Number: [id number] Exam Date: 03/05/2025 12:01 Report Date: 03/05/2025 12:03 At the request of: MARIA HARTLEY DO Procedure: US OB BPP w non-stress BIOPHYSICAL PROFILE: CLINICAL INFORMATION: History of pre-eclampsia in prior O09.299 COMPARISON: 02/26/2025 There is a single live intrauterine gestation in cephalic presentation. The reported gestational age is 35 weeks 4 days. The heart rate measures 139 beats per minute. FINDINGS: TONE: 1 or more episodes of activity extension and flexion of extremity or opening and closing of the hand [Y] 2/2 GROSS BODY MOVEMENTS: 3 or more discrete body or limb movements [Y] 2/2 BREATHING MOVEMENTS: 1 or more episodes of breathing lasting at least 30 seconds [Y] 2/2 VIDA: A single deepest vertical pocket of amniotic fluid greater than 2 cm [Y] 2/2 VIDA: 18.1 cm. This is in upper normal range. Total score: 8/8 US/US OB BPP w non-stress IMPRESSION: NORMAL BIOPHYSICAL PROFILE . Impression dictated by: Michell Miller M.D. 03/05/2025 12:03 PM Dictation Location: [place] [address] Electronically authenticated by: [id number] Y Date: 03/05/2025 12:03
--- OUTSIDE RECORDS SUMMARY | 2025-03-05 11:06 | XMS_ITS | Clinical Summary ---
Author Organization [facility] Address [address] [place] [address] Care Team Providers Care Loss Prevention Officer Name Role Phone Unavailable Primary Care Provider [...] (2 - Td or Tdap) 01/09/2026 Insurance [facility] COMMUNITY PLAN [place]
--- OUTSIDE RECORDS SUMMARY | 2025-03-05 11:06 | XMS_ITS | Encounter Summary ---
Author Organization [facility] Address [address] [place] [address] Care Team Providers Care Ore Mixer Name Role Phone Sarah Lopez DO Unavailable [phone] Encounter Details Date Type Department Care Team (Late st Contact Info) Description 02/20/2025 Telephone [facility] [address] [place] [address] Mary Cruz MA Social History Tobacco Use [...] encounter Miscellaneous Notes * Telephone Encounter - Mary Cruz MA - 02/20/2025 12:03 PM EDT OB: 33w5d P# [phone] Pt called in and seen at ER today for tooth pain and possible abscess. Pt prescribed Amox and [place] ER. Pt called in trying to see if there was anything Dr. Pendleton could do as she has had this painfor over 1 month and now is worsening. States dentist can not do anything until after delivery as she needs to be put to sleep for tooth removal. Advised pt to continue antibiotic and pain med as prescribed. Advised that we would reach out to Dr. Pendleton for response if not has apt on 02/24/2025. Please Advise documented in this encounter Plan of Treatment Upcoming Encounters Date Type Department Care Team (Late st Contact Info) Description 03/10/2025 11:10 AM EDT Routine [facility] [address] [place] [address] Malcolm Pendleton DO [address] [place] [address] 11/19/2025 10:50 AM EST Office Visit [facility] [address] [place] [address] Kayleigh Chung, BPM SOLUTION ARCHITECT-BUILDING MAINTENANCE TECHNICIAN [address] [place] [address] documented as of this encounter Visit Diagnoses Not on filedocumented in this encounter Care Teams Ore Mixer Relationship Specialty Start Date End Date Sarah Lopez DO [address] [place] [address] Referring Physician Emergency Medicine 02/18/23 documented as of this encounter
--- OUTSIDE RECORDS SUMMARY | 2025-03-05 11:06 | XMS_ITS | Encounter Summary ---
Author Organization [facility] Address [id number] [address] [place] [address] Care Team Providers Care Porcelain Slusher Name Role Phone No Pcp, No Pcp Primary Care Provider Unavailabl e Encounter Details Date Type Department Care Team (Late st Contact Info) Description 02/26/2025 Telephone Maternal- Medicine at [facility] [address] [place] [address] Caroline Chavira RN Social History Tobacco Use [...] on filedocumented in this encounter Care Teams Porcelain Slusher Relationship Specialty Start Date End Date No Pcp, [place] [address] PCP - General Family Medicine 02/21/24 documented as of this encounter
--- OUTSIDE RECORDS SUMMARY | 2025-03-05 11:06 | XMS_ITS | Encounter Summary ---
Author Organization [facility] Address [address] [place] [address] Care Team Providers Care Justice Of The Peace Name Role Phone Sarah Lopez DO Unavailable [phone] Encounter Details Date Type Department Care Team (Late st Contact Info) Description 01/09/2025 Results Follow-Up [facility] [address] [address] Suze Lopez LPN [address] [place] [id number] Social History Tobacco Use Types Packs/Day Years [...] OB [address] [place] [address] Malcolm Pendleton, DO [address] [address] 11/19/2025 10:50 AM EST Office Visit [facility] [address] [place] [address] Kayleigh Chung, STORE MGR-FINANCIAL CONSULTANT [address] [place] [address] documented as of this encounter Visit Diagnoses Not on filedocumented in this encounter Care Teams Justice Of The Peace Relationship Specialty Start Date End Date Sarah Lopez DO [address] [place] [address] Referring Physician Emergency Medicine 02/18/23 documented as of this encounter
--- OUTSIDE RECORDS SUMMARY | 2025-03-05 11:06 | XMS_ITS | Encounter Summary ---
Author Organization [facility] Address [address] [place] [address] Care Team Providers Care Mastercam Programmer Name Role Phone Sarah Lopez DO Unavailable [phone] Encounter Details Date Type Department Care Team (Late st Contact Info) Description 01/06/2025 Results Follow-Up [facility] [address] [place] [address] Suze Lopez LPN [address] [place] [id number] Social History Tobacco Use Types Packs/Day Years [...] AM EDT Routine [facility] [address] [facility] [address] [place] [address] Malcolm Pendleton DO [address] [place] [address] 11/19/2025 10:50 AM EST Office Visit [facility] [address] [place] [address] Kayleigh Chung, LIVE STUDY MANAGER-RN MED SURG [address] [place] [address] documented as of this encounter Visit Diagnoses Not on filedocumented in this encounter Care Teams Mastercam Programmer Relationship Specialty Start Date End Date Sarah Lopez DO [address] [place] [address] Referring Physician Emergency Medicine 02/18/23 documented as of this encounter
--- OUTSIDE RECORDS SUMMARY | 2025-03-05 11:06 | XMS_ITS | Encounter Summary ---
Author Organization [facility] Address [address] [place] [address] Care Team Providers Care Prepress Supervisor Name Role Phone Sarah Lopez DO Unavailable [phone] Encounter Details Date Type Department Care Team (Late st Contact Info) Description 01/08/2025 Results Follow-Up [facility] [address] [address] Suze Lopez LPN [address] [place] [id number] Social History Tobacco Use Types Packs/Day Years [...] OB [address] [place] [address] Malcolm Pendleton DO [address] [place] [address] 11/19/2025 10:50 AM EST Office Visit [facility] [address] [place] [address] Kayleigh Chung, LAGGING MACHINE OPERATOR-WEATHERIZATION OPERATIONS MANAGER [address] [facility] [address] [place] [address] documented as of this encounter Visit Diagnoses Not on filedocumented in this encounter Care Teams Prepress Supervisor Relationship Specialty Start Date End Date Sarah Lopez DO [address] [place] [address] Referring Physician Emergency Medicine 02/18/23 documented as of this encounter
--- OUTSIDE RECORDS SUMMARY | 2025-03-05 11:06 | XMS_ITS | Encounter Summary ---
Author Organization [facility] Address [address] [place] [address] Phone Care Team Providers Care Silk Washing Machine Operator Name Role Phone Yudelka Lopez Primary Care Provider + Encounter Details Date Type Department Care Team (Late st Contact Info) Description 03/31/2022 Orders Only [facility] [address] [place] [address] Conversion, Onbase Social History Tobacco Use Types [...] on filedocumented in this encounter Care Teams Silk Washing Machine Operator Relationship Specialty Start Date End Date Yudelka Lopez APRN-CNP [address] [place] [address] PCP - General 01/20/23 documented as of this encounter
--- OUTSIDE RECORDS SUMMARY | 2025-03-05 11:06 | XMS_ITS | Encounter Summary ---
Author Organization [facility] Address [address] [place] [address] [place] [address] Care Team Providers Care Fraternity House Cook Name Role Phone Sarah Lopez DO Unavailable [phone] Encounter Details Date Type Department Care Team (Late st Contact Info) Description 02/16/2025 Abstract [facility] [address] [place] [address] Maggy Snaz LPN Social History Tobacco Use Types Packs/Day Years [...] Routine [facility] B[facility] OB [address] [place] [address] Malcolm Pendleton DO [address] [place], [place] [phone] 11/19/2025 10:50 AM EST Office Visit [facility] [address] [place] [address] Kayleigh Chung, BETTY-ADVANCED MANAGER [address] [place] [address] documented as of this encounter Visit Diagnoses Not on filedocumented in this encounter Care Teams Fraternity House Cook Relationship Specialty Start Date End Date Sarah Lopez DO [address] [place] [address] Referring Physician Emergency Medicine 02/18/23 documented as of this encounter
--- OUTSIDE RECORDS SUMMARY | 2025-03-05 11:06 | XMS_ITS | Clinical Summary ---
Author Organization [facility] Address [address] [place] [address] Care Team Providers Care Climatology Professor Name Role Phone Unavailable Primary Care Provider [...] Plan of Treatment Not on file Insurance [facility] [place] Advance Directives * Full Code (Latest Code Status on File) Date Activated Date Inactivated Comments 01/06/2016 3:26 PM 01/10/2016 9:07 PM * Full Code Date Activated Date Inactivated Comments 01/06/2016 12:49 PM 01/06/2016 3:26 PM * Full Code Date Activated Date Inactivated Comments 01/05/2016 8:33 PM 01/06/2016 12:49 PM
--- OUTSIDE RECORDS SUMMARY | 2025-03-05 11:06 | XMS_ITS | Encounter Summary ---
Author Organization [facility] Address [address] [place] [address] Care Team Providers Care Air Traffic Instructor Name Role Phone Sarah Lopez DO Unavailable [phone] Encounter Details Date Type Department Care Team (Late st Contact Info) Description 01/30/2025 Abstract [facility] B[facility] OB [address] [place] [address] Mary Cruz MA Social History Tobacco [...] [place] [address] Malcolm Pendleton DO [address] [place], [place] [address] 11/19/2025 10:50 AM EST Office Visit [facility] [address] [place] [address] Kayleigh Chung APRN-ACCOUNTING ASSOCIATE [address] [place] [address] documented as of this encounter Visit Diagnoses Not on filedocumented in this encounter Care Teams Air Traffic Instructor Relationship Specialty Start Date End Date Sarah Lopez DO [address] [place] [address] Referring Physician Emergency Medicine 02/18/23 documented as of this encounter
--- OUTSIDE RECORDS SUMMARY | 2025-03-05 11:06 | XMS_ITS | Encounter Summary ---
Author Organization [facility] Address [address] [place] [address] Care Team Providers Care Iron Handler Name Role Phone Sarah Lopez DO Unavailable [phone] Encounter Details Date Type Department Care Team (Late st Contact Info) Description 02/26/2025 Clinisync Result Encounter [facility] External Department Unsolicited Maria Pendleton, DO [address], [id number] Social History Tobacco Use Types Packs/Day Years [...] [facility] [place] [address] [place] [phone] Maria Pendleton, DO [address], [place] [phone] 11/19/2025 10:50 AM EST Office Visit [facility] [address] [place] [phone] Kayleigh Chung, BIBLE TEACHER-HOME ECONOMIST CONSUMER SERVICE [address] [place] [address] documented as of this encounter Procedures Procedure Name Priority Date/Time Associated Diagnosis Comments US OB BPP W NON-STRESS 02/26/2025 1:13 PM EDT documented in this encounter Results * US OB BPP W NON-STRESS (02/26/2025 1:13 PM EDT) Anatomical Region Laterality Modality Other 02/26/2025 1:13 PM EDT Narrative 02/26/2025 1:34 [place] [address] Ultrasound Report Signed Patient: LISHA VALENTIN MR#: [id number] : 1990 Acct:[id number] Age/Sex: 34 / F ADM Date: 02/26/25 Loc: US Attending Dr: Maria Pendleton D.O. Ordering Physician: Maria Pendleton D.O. Date of Service: 02/26/25 Procedure(s): US OB BPP w non-stress Accession Number(s): [id number] cc: Maria Pendleton D.O.; Physician,Non-Staff M.D. The [address] [address] Patient Name: LISHA VALENTIN MRN: TBH:[id number] date: 1990 Sex: F Assigned Patient Location: US Current Patient Location: ED.MAIN Accession/Order Number: [id number] Exam Date: 02/26/2025 13:13 Report Date: 02/26/2025 13:13 At the request of: MARIA PENDLETON DO Procedure: US OB BPP w non-stress Biophysical profile. Reason for exam: LGA. COMPARISON: BPP 02/19/2025. TECHNIQUE: Transabdominal imaging of the gravid uterus was obtained. FINDINGS: Center Director Lead Teacher reports a BPP of 8 out of 8. VIDA is normal at 16.4 cm. heart rate 135 bpm. US/US OB BPP w non-stress IMPRESSION: BPP 8 out of 8. Impression dictated by: Leroy Mancera Jr., D.O. 02/26/2025 1:13 PM Dictation Location: [place] [address] Electronically authenticated by: [id number] Y Date: 02/26/2025 13:13 Dictated By: Leroy Mancera M.D. Signed By: 02/26/25 1336 DD/ 1313 TD/TT: Vehicle Cost Engineer: Procedure Note Radiology, Radiologist, MD - 02/26/2025 [place] [address] Ultrasound Report Signed Patient: LISHA VALENTIN GMR#: [id number] : 1990Acct:[id number] Age/Sex: 34 / FADM Date: 02/26/25 Loc: US Attending Dr: Maria Pendleton D.O. Ordering Physician: Maria Pendleton D.O. Date of Service: 02/26/25 Procedure(s): US OB BPP w non-stress Accession Number(s): [id number] cc: Maria Pendleton D.O.; Physician,Non-Staff Kacey The [place] [id number] Patient Name: LISHA VALENTIN MRN: [id number] date: 1990 Sex: F Assigned Patient Location: US Current Patient Location: ED.MAIN Accession/Order Number: [id number] Exam Date: 02/26/2025 13:13 Report Date: 02/26/2025 13:13 At the request of: MARIA PENDLETON DO Procedure: US OB BPP w non-stress Biophysical profile. Reason for exam: LGA. COMPARISON: BPP 02/19/2025. TECHNIQUE: Transabdominal imaging of the gravid uterus was obtained. FINDINGS: Center Director Lead Teacher reports a BPP of 8 out of 8. VIDA is normal at 16.4cm. heart rate 135 bpm. US/US OB BPP w non-stress IMPRESSION: BPP 8 out of 8. Impression dictated by: Leroy Mancera Jr., D.O. 02/26/2025 1:13 PM Dictation Location: [place] [address] Electronically authenticated by: [id number] Y Date: 3:13 Dictated By: Leroy Mancera M.D. Signed By:02/26/25 1334 DD/ 1313 TD/TT: Vehicle Cost Engineer: us Maria Pendleton DO [facility] Final Result documented in this encounter Visit Diagnoses Not on filedocumented in this encounter Care Teams Iron Handler Relationship Specialty Start Date End Date Sarah Lopez DO [address] [place] [address] Referring Physician Emergency Medicine 02/18/23 documented as of this encounter
--- OUTSIDE RECORDS SUMMARY | 2025-03-05 11:06 | XMS_ITS | Clinical Summary ---
Author Organization [facility] Address [address] [place] [address] Phone Care Team Providers Care Eeo Officer Name Role Phone Yudelka Lopez APRN-RAMP SERVICE MAN Primary Care Provider + Social History Tobacco [...] this topic Medical Devices Implanted Type Area Interior Design Consultant Device Identifier Shelf Expiration Date Model / Serial / Lot Mesh, Softmesh 3 X 6, Flat Case [id number] Implanted:Qty: 1 on 04/03/2022 by Sly Crocker MD MPH Mesh Abdomen DAVOL 05/14/2024 [id number] / / [id number] Description:Converted from [facility] Care Acute. Please see archived information for full log information. Care Teams Eeo Officer Relationship Specialty Start Date End Date Yudelka Lopez, RN CARDIOLOGY-RAMP SERVICE MAN [address] [place] [address] PCP - General 01/20/23
--- OUTSIDE RECORDS SUMMARY | 2025-03-05 11:06 | XMS_ITS | Encounter Summary ---
Author Organization [facility] Address [facility] [address] [place] [address] Care Team Providers Care Human Resources Benefits Coordinator Name Role Phone No Pcp, No Pcp Primary Care Provider Unavailabl e Encounter Details Date Type Department Care Team (Late st Contact Info) Description 10/10/2024 Abstract Maternal- Medicine at [facility] [address] [place] [phone] Torey Barnett MD [address], [address] [place] [address] Social History Tobacco Use Types Packs/Day Years [...] ORDERABLES Larissa l Result Performing Organization Address City/[facility] Co de Phone Number MANUALLY TRANSCRIBED RESULTS * Syphilis Total(Unknown Syphilis Status) (09/11/2024) Syphilis Total non- reactive MANUALLY TRANSCRIBED RESULTS us Not In System Ref Prov LAB BLOOD ORDERABLES Larissa l Result Performing Organization Address City/[facility] Co de Phone Number MANUALLY TRANSCRIBED RESULTS documented in this encounter Visit Diagnoses Not on filedocumented in this encounter Care Teams Human Resources Benefits Coordinator Relationship Specialty Start Date End Date No Pcp, [place] [address] PCP - General Family Medicine 02/21/24 documented as of this encounter
--- OUTSIDE RECORDS SUMMARY | 2025-03-05 11:06 | XMS_ITS | Encounter Summary ---
Author Organization [facility] Address [address] [place] [address] Care Team Providers Care Fresh Foods Technician Name Role Phone Sarah Lopez DO Unavailable [phone] Encounter Details Date Type Department Care Team (Late st Contact Info) Description 02/19/2025 Clinisync Result Encounter NOMS External Department Unsolicited Maria Pendleton, DO [address], [facility] Social History Tobacco Use Types Packs/Day Years [...] Routine [facility] BCP OB [address] [place] [phone] Maria Pendleton, DO [address], [place] [phone] 11/19/2025 10:50 AM EST Office Visit [facility] [address] [place] [address] Kayleigh Chung, CERTIFIED ACTIVITIES DIRECTOR-UMBRELLA MENDER [address] [place] [address] documented as of this encounter Procedures Procedure Name Priority Date/Time Associated Diagnosis Comments US OB BPP W NON-STRESS 02/19/2025 11:29 AM EDT documented in this encounter Results * US OB BPP W NON-STRESS (02/19/2025 11:29 AM EDT) Anatomical Region Laterality Modality Other 02/19/2025 11:2 9 AM EDT Narrative 02/19/2025 11:31 [place] [address] Ultrasound Report Signed Patient: LISHA VALENTIN MR#: [id number] : 1990 Acct:[id number] Age/Sex: 34 / F ADM Date: 02/19/25 Loc: [place] [address]: Maria Pendleton D.O. Ordering Physician: Maria Pendleton D.O. Date of Service: 02/19/25 Procedure(s): US OB BPP w non-stress Accession Number(s): [id number] cc: Maria Pendleton D.O.; Physician,Non-Staff M.DJorge The [place] [id number] Patient Name: LISHA VALENTIN MRN: [id number] date: 1990 Sex: F Assigned Patient [facility]: [facility] Current Patient Location: [facility] Accession/Order Number: [id number] Exam Date: 02/19/2025 11:27 Report Date: 02/19/2025 11:29 At the request of: MARIA PENDLETON DO Procedure: US OB BPP w non-stress BIOPHYSICAL PROFILE: CLINICAL INFORMATION: History of pre eclampsia O09.299 COMPARISON: 02/12/2025 There is a single live intrauterine gestation in cephalic presentation. The reported gestational age is 33 weeks 4 days. No heart rate was measured on today's exam. FINDINGS: TONE: 1 or more episodes of [...] greater than 2 cm [Y] 2/2 VIDA: 16.8 cm.) This is in upper normal range. Total score: 8/8 US/US OB BPP w non-stress IMPRESSION: NORMAL BIOPHYSICAL PROFILE Impression dictated by: Michell Miller M.D. 02/19/2025 11:29 AM Dictation Location: [place] [address] Electronically authenticated by: [id number] Y Date: 02/19/2025 11:29 Dictated By: Michell Miller M.D. Signed By: 02/19/25 1131 DD/ 1129 TD/TT: Qa Reviewer: Procedure Note Radiology, Radiologist, - 02/19/2025 [place] [address] Ultrasound Report Signed Patient: LISHA VALENTIN GMR#: [id number] : 1990Acct:[id number] Age/Sex: 34 / FADM Date: 02/19/25 Loc: [facility] [address]: Maria Pendleton D.O. Ordering Physician: Maria Pendleton D.O. Date of Service: 02/19/25 Procedure(s): US OB BPP w non-stress Accession Number(s): [id number] cc: Maria Pendleton D.O.; Physician,Non-Staff Kacey The [place] [address] Patient Name: LISHA VALENTIN MRN: [facility]:[id number] date: 1990 Sex: F Assigned Patient Location: [facility] Current Patient Location: [facility] Accession/Order Number: [id number] Exam Date: 02/19/2025 11:27 Report Date: 02/19/2025 11:29 At the request of: MARIA PENDLETON DO Procedure: US OB BPP w non-stress BIOPHYSICAL PROFILE: CLINICAL INFORMATION: History of pre eclampsia O09.299 COMPARISON: 02/12/2025 There is a single live intrauterine gestation in cephalic presentation.The reported gestational age is 33 weeks 4 days. No heart rate wasmeasured on today's exam. FINDINGS: TONE: 1 or more episodes of [...] greater than 2 cm [Y] 2/2 VIDA: 16.8 cm.) This is in upper normal range. Total score: 8/8 US/US OB BPP w non-stress IMPRESSION: NORMAL BIOPHYSICAL PROFILE Impression dictated by: Michell Miller M.D. 02/19/2025 11:29 AM Dictation Location: [place] [address] Electronically authenticated by: [id number] Y Date: 1:29 Dictated By: Michell Miller M.D. Signed By:02/19/25 1131 DD/ 1129 TD/TT: Qa Reviewer: us Maria Pendleton DO [facility] Final Result documented in this encounter Visit Diagnoses Not on filedocumented in this encounter Care Teams Fresh Foods Technician Relationship Specialty Start Date End Date Sarah Lopez DO [address] [place] [address] Referring Physician Emergency Medicine 02/18/23 documented as of this encounter
--- OUTSIDE RECORDS SUMMARY | 2025-03-05 11:06 | XMS_ITS | Encounter Summary ---
Author Organization [facility] Address [address] [place] [address] Care Team Providers Care Printed Circuit Designer Name Role Phone Sarah Lopez DO Unavailable [phone] Encounter Details Date Type Department Care Team (Late st Contact Info) Description 02/24/2025 Bamboo flowsheet [facility] BCP OB [address] [place] [address] Malcolm Pendleton DO [address], [place] [address] Social History Tobacco Use Types Packs/Day Years [...] Routine [facility] BCP [place] [address] [place] [address] Malcolm Pendleton DO [address] [place] [address] 11/19/2025 10:50 AM EST Office Visit [facility] [address] [place] [address] Kayleigh Chung, AP PROCESSOR-SHALE PLANER OPERATOR HELPER [address] [place] [address] documented as of this encounter Visit Diagnoses Not on filedocumented in this encounter Care Teams Printed Circuit Designer Relationship Specialty Start Date End Date Sarah Lopez DO [address] [place] [address] Referring Physician Emergency Medicine 02/18/23 documented as of this encounter
--- OUTSIDE RECORDS SUMMARY | 2025-03-05 11:06 | XMS_ITS | Encounter Summary ---
Author Organization [facility] Address [id number] [address] [place] [address] Care Team Providers Care Finnish Rubber Name Role Phone No Pcp, No Pcp Primary Care Provider Unavailabl e Encounter Details Date Type Department Care Team (Late st Contact Info) Description 12/09/2024 Orders Only Maternal- Medicine at [facility] [address] [place] [phone] Natalie Díaz, RN Choroid plexus cyst of [...] MD LAB BLOOD ORDERABLES Final Re sult [facility] [employer] documented in this encounter Visit Diagnoses Diagnosis Choroid plexus cyst of fetus affecting care of mother, antepartum, fetus 1 documented in this encounter Care Teams Finnish Rubber Relationship Specialty Start Date End Date No Pcp, [place] [address] PCP - General Family Medicine 02/21/24 documented as of this encounter
--- OUTSIDE RECORDS SUMMARY | 2025-03-05 11:06 | XMS_ITS | Encounter Summary ---
Author Organization [facility] Address [facility] [address] [place] [address] Care Team Providers Care Leasing Assistant Name Role Phone No Pcp, No Pcp Primary Care Provider Unavailabl e Encounter Details Date Type Department Care Team (Late st Contact Info) Description 12/01/2024 Orders Only Maternal- Medicine at [facility] [address] [place] [address] Natalie Díaz, RN Choroid plexus cyst of [...] 1 documented in this encounter Care Teams Leasing Assistant Relationship Specialty Start Date End Date No Pcp, [place] [address] PCP - General Family Medicine 02/21/24 documented as of this encounter
--- OUTSIDE RECORDS SUMMARY | 2025-03-05 11:06 | XMS_ITS | Patient Health Record ---
[facility] Address [address] [place] [address] Care Team Providers Care Machine Maintenance Technician Name Role Phone Yudelka Lopez Primary Care Provider Dr. Leroy Salazar Unavailable [phone] Allergies Allergen (clinical drug ingredient) Drug/Non Drug Allergy documented on EMR Reaction Allergy Type Onset Date Status labetalol Labetalol HCl shortness of breath Drug Allergy Active Results Component Value Reference Range Notes Complete Blood Count Auto Di ff Reviewed date:07/14/2024 05:15:14 PM Interpretation: Performing Lab:, [facility], [address] [place] Notes/Report: For adults in ED, MDW > [...] 10*3/uL Monocyte Distribution Width 20.43 0.00-20.00 % Complete Blood Count Auto Di ff Reviewed date:08/07/2024 07:53:16 AM Interpretation: Performing Lab:, [facility], [address] Notes/Report: White [...] 10*3/uL Monocyte Distribution Width 17.93 0.00-20.00 % Complete Blood Count Auto Di ff (Not yet reviewed by provider) Interpretation: Performing Lab:, [facility], [address] [facility] Notes/Report: For adults in ED, MDW > [...] 10*3/uL Monocyte Distribution Width 20.57 0.00-20.00 % Quick Strep (Not yet reviewe d by provider) Interpretation: Performing Lab:, [facility], [address] [place] Notes/Report: Streptococcus pyogenes Ag [Presence] in Throat by Rapid immunoassay Negative for Group A Strep Antigen Note 1 ---- NOTE 2 Results are those of a screening test. NOTE 3 If clinically indica delmer please order a culture. NOTE 4 ---- NOTE 5 Reference range = Negative Ethyl Alcohol Profile Reviewed date:08/07/2024 07:53:16 AM Interpretation: Performing Lab:, [facility], [address] [place] [address] [place] Notes/Report: Ethanol <10 Percent Ethanol TNP HCG,Urine Reviewed date:07/14/2024 05:15:14 PM Interpretation: Performing Lab: Notes/Report: Name Collection Type:: Clean-Voided Midstream HCG Qualitative,Urine Negative CT abdomen pelvis w con Reviewed date:07/14/2024 04:15:57 PM Interpretation: Performing Lab: Notes/Report: [place] [address] CT Scan Report Signed Patient: Lisha Fonseca MR#: [id number] : 1990 Acct:[id number] Age/Sex: 34 / F ADM Date: 07/14/24 Loc: ER Room: Type: [facility] ER Attending Dr: Copies to: [...] Mancera Jr., D.O.07/14/2024 2:43 PM Dictation Location: [place] [address] Transcribed By: [facility] 07/14/24 1443 Dictated By: Leroy Mancera Jr, DO 07/14/24 1438 Signed By: <Electronically signed by Leroy Mancera Jr, DO in [place]> 07/14/24 1443 Lipase Reviewed date:07/14/2024 05:15:14 PM Interpretation: Performing Lab: Notes/Report: Lipase 45.0 11.0-82.0 U/L Hepatic Panel Reviewed date:07/14/2024 05:15:14 PM Interpretation: Performing Lab:, [facility], [address] [facility] Notes/Report: Total Protein 7.2 6.4-8.9 g/dL Albumin [...] 11.1 6.0-15.0 Creatinine Clr Calc Pharmacy 107.14 HCG,Quantitative Reviewed date:08/07/2024 07:53:16 AM Interpretation: Performing Lab:, [facility], [address], [place] Notes/Report: Approximate Approximate hCG Gestational Age Range (mIU/ml) (weeks) 0.2-1 5-50 1-2 50-500 2-3 100-5,000 3-4 500-10,000 4-5 1,000-50,000 5-6 10,000-100,000 6-8 15,000-200,000 8-12 10,000-100,000 HCG,Quantitative 92915.00 Comprehensive Metabolic Pane l Reviewed date:08/07/2024 07:53:16 AM Interpretation: Performing Lab:, [facility], [address] [place] Notes/Report: Glucose 98 70-100 mg/dL Random Glucose [...] 6.0-15.0 meq/L Creatinine Clr Calc Pharmacy 119.09 Basic Metabolic Panel (Not y et reviewed by provider) Interpretation: Performing Lab:, [facility], [address] [facility] Notes/Report: Glucose 73 70-100 mg/dL Random Glucose [...] re viewed by provider) Interpretation: Performing Lab:, [facility], [address] [facility] Notes/Report: BioFire Detected Detected Not Detecte This is a duplicate RP2.1 COVID (PCR) result to be used for statistical tracking purpose only. Dipstick and Microscopic (No t yet reviewed by provider) Interpretation: Performing Lab:, [facility], [address] [facility] Notes/Report: Name Collection Type:: Clean-Voided Midstream Color,Urine Light-Yellow Yellow Appearance,Urine Clear Clear Specificy [place]ois,Urine 1.011 1.001-1.030 pH,Urine 6.5 5.0-9.0 Leukocyte Esterase,Urine [...] yet reviewed by provider) Interpretation: Performing Lab:, [facility], [address], [place] Notes/Report: Adenovirus Not [...] Influenza A H3 Blank Space ---- ------ COVID-19 / Flu A/B / RSV PCR Reviewed date:07/14/2024 05:15:14 PM Interpretation: Performing Lab:, [facility], [place] Notes/Report: COVID-19 Cepheid Result Negative for KELLY [...] Reviewed date:07/14/2024 05:15:14 PM Interpretation: Performing Lab:, [facility], [address] , [place] Notes/Report: Name Collection Type:: Clean-Voided Midstream Color,Urine Yellow Yellow Appearance,Urine Clear Clear Specificy [place]ois,Urine 1.030 1.001-1.030 pH,Urine 6.0 5.0-9.0 Leukocyte Esterase,Urine [...] Reviewed date:07/14/2024 05:15:14 PM Interpretation: Performing Lab:, [facility], [address] , [place] Notes/Report: This is a duplicate [employer] Xpert Xpress CoV-2/Flu/RSV Plus RNA by RT-PCR result to be used for statistical tracking purpose only. 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 Stress is when someone feels tense, nervous, anxious, or cant sleep at night because their mind is troubled Not at all In the past year have you sp ent more than 2 nights in a row in a nursing home, half-way, mcfp center, or juvenile correctional facility? No Are [...] Problem Status W/U Status Risk Notes Problem 06603285 Hyperthyroidism (E05.90) Active confirmed Problem 897316886 Thyroid nodule (E04.1) Active confirmed Problem 12021207 Iron deficiency anemia, unspecified iron deficiency anemia type (D50.9) Active confirmed Problem 0211679 Migraine with au ra and without status migrainosus, not intractable (G43.109) Active confirmed Problem 507738999 Endometriosis (N80.9) Active confirmed Problem 768539418 Anxiety disorder , unspecified (F41.9) Active confirmed Encounters Encounter Location Date Provider Diagnosis [facility] [address] [place] [address] 07/18/2024 Formerly named [facility] [address] [place] [address] 08/13/2024 [facility] [address] [place] [address] 12/19/2024 Leroy Salazar Encounter for dental examination [...] Insured Coverage Start Date Coverage End Date [facility] [address] [place] [address] [id number] LISHA FONSECA Other 1 [employer] [place] Medicaid [address] [place] [address] [id number] LISHA FONSECA Self - patient is the insured 3 3 Wrap [employer] [facility] [address] [place] [address] [id number] LISHA FONSECA Self - patient is the insured 3 3 Wrap [employer] [place] [address] [place] [address] [id number] LISHA FONSECA Self - patient is the insured 3 zDENTAL DQ [facility] [place]-termed 22 [address] [place] [address] [id number] LISHA FONSECA Self - patient is the insured 2 zDental MEDICAID [facility] after [facility]-terme d 22 [address] [place] [phone] [id number] LISHA FONSECA Self - patient is the insured 2 DENTAL HU[employer] [address] [address] [place] [address] [id number] LISHA FONSECA 5 Dental Wrap [facility] [employer] [address] [place] [address] [id number] LISHA FONSECA Self - patient is the insured 5 Dental [employer] DQ [address] [address] [place] [address] [id number] LISHA FONSECA Self - patient is the insured 5 Medical (General) History Medical History History ICD Code hypertension anemia Covid 19 Surgical History Surgery Date(Month/Year) section-x2 Endometrial Tumor Resection 04/03/22 Hospitalization History Reason Date(Month/Year) see surgical Child x2
--- OUTSIDE RECORDS SUMMARY | 2025-03-05 11:07 | XMS_ITS | Encounter Summary ---
Author Organization [facility] Address [address] [place] [address] [place] [address] Care Team Providers Care Generation Technician Name Role Phone Sarah Lopez DO Unavailable [phone] Encounter Details Date Type Department Care Team (Late st Contact Info) Description 02/19/2024 Clinisync Result Encounter [facility] External Department Unsolicited Maria Pendleton, DO [address] [place] [address] Social History Tobacco Use Types Packs/Day Years [...] [facility] [place] [address] [place] [id number] Maria Pendleton, [address] [place] [address] 11/19/2025 10:50 AM EST Office Visit [facility] [address] [place] [address] Kayleigh Chung, GRIZZLY WORKER-INFORMATION TECHNOLOGY INTERN [address] [place] [address] documented as of this encounter Procedures Procedure Name Priority Date/Time Associated Diagnosis Comments US PELVIS TRANSVAGINAL 02/19/2024 12:27 PM EDT documented in this encounter Results * US PELVIS TRANSVAGINAL (02/19/2024 12:27 PM EDT) Anatomical Region Laterality Modality Other 02/19/2024 12:2 7 PM EDT Narrative 02/19/2024 12:29 PM EDT [address] [address] Ultrasound Report Signed Patient: LISHA VALENTIN MR#: [id number] : 1990 Acct:[id number] Age/Sex: 33 / F ADM Date: 02/19/24 Loc: [facility] Attending Dr: Maria Pendleton D.O. Ordering Physician: Maria Pendleton D.O. Date of Service: 02/19/24 Procedure(s): US pelvis transvaginal Accession Number(s): [id number] cc: Maria Pendleton D.O.; Physician,Non-Staff M.D. The [address] [address] Patient Name: LISHA VALENTIN MRN: [id number] date: 1990 Sex: F Assigned Patient Location: [facility] Current Patient Location: [facility] Accession/Order Number: [id number] Exam Date: 02/19/2024 11:18 Report Date: 02/19/2024 [...] Signed By: 02/19/24 1229 DD/ 1227 TD/TT: Fit Model: Procedure Note Radiology, Radiologist, MD - 02/19/2024 [place] [address] Ultrasound Report Signed Patient: LISHA VALENTIN GMR#: [id number] : 1990Acct:[id number] Age/Sex: Date: 02/19/24 Loc: [facility] Attending Dr: Maria Pendleton D.O. Ordering Physician: Maria Pendleton D.O. Date of Service: 02/19/24 Procedure(s): US pelvis transvaginal Accession Number(s): [id number] cc: Maria Pendleton D.O.; Physician,Non-Staff MKarlee [address] [address] Patient Name: LISHA VALENTIN MRN: [id number] date: 1990 Sex: F Assigned Patient Location: [facility] Current Patient Location: [facility] Accession/Order Number: [id number] Exam Date: 02/19/2024 11:18 Report Date: 02/19/2024 [...] M.D. Signed By:02/19/24 1229 DD/ 1227 TD/TT: Fit Model: us Maria Pendleton DO [facility] Final Result documented in this encounter Visit Diagnoses Not on filedocumented in this encounter Care Teams Generation Technician Relationship Specialty Start Date End Date Sarah Lopez DO [address] [place] [address] Referring Physician Emergency Medicine 02/18/23 documented as of this encounter
--- OUTSIDE RECORDS SUMMARY | 2025-03-05 11:07 | XMS_ITS | Encounter Summary ---
Author Organization [facility] Address [address] [place] [address] Care Team Providers Care Stringed Instrument Assembler Name Role Phone Sarah Lopez DO Unavailable [phone] Encounter Details Date Type Department Care Team (Late st Contact Info) Description 08/27/2024 Clinisync Result Encounter [facility] External Department Unsolicited Maria Pendleton, DO [address], [facility] Social History Tobacco Use Types Packs/Day [...] Routine [facility] BCP [place] [address] [place] [phone] Maria Pendleton, DO [address], [place] [id number] 11/19/2025 10:50 AM EST Office Visit [facility] [address] [place] [address] Sariahvishnu Kayleigh Rowan, ANNEALING OPERATOR-DIGITAL COMPUTER OPERATOR [address] [place] [address] documented as of this encounter Procedures Procedure Name Priority Date/Time Associated Diagnosis Comments US OB TRANSVAGINAL 08/27/2024 4: 27 AM EST documented in this encounter Results * US OB TRANSVAGINAL (08/27/2024 4:27 AM EST) Anatomical Region Laterality Modality Other 08/27/2024 4:27 AM EST Narrative 08/27/2024 4:30 [place] [address] Ultrasound Report Signed Patient: LISHA VALENTIN MR#: [id number] : 1990 Acct:[id number] Age/Sex: 34 / F ADM Date: 08/26/24 Loc: [facility] Attending Dr: Maria Pendleton D.O. Ordering Physician: Maria Pendleton D.O. Date of Service: 08/26/24 Procedure(s): US OB transvaginal Accession Number(s): [id number] cc: Maria Pendleton D.O.; Physician,Non-Staff M.DJorge The [address] [address] Patient Name: LISHA VALENTIN MRN: [id number] date: 1990 Sex: F Assigned Patient Location: [facility] Current Patient Location: Accession/Order Number: [id number] Exam Date: 08/26/2024 08:59 Report Date: 08/27/2024 [...] M.D. Signed By: 08/27/24429 DD/ 6 TD/TT: Vulcan Crewmember: Procedure Note Radiology, Radiologist, MD - 08/27/2024 [place] [address] Ultrasound Report Signed Patient: LISHA VALENTIN GMR#: [id number] : 1990Acct:[id number] Age/Sex: 34 / FADM Date: 08/26/24 Loc: [facility] Attending Dr: Maria Pendleton D.O. Ordering Physician: Maria Pendleton D.O. Date of Service: 08/26/24 Procedure(s): US OB transvaginal Accession Number(s): [id number] cc: Maria Pendleton D.O.; Physician,Non-Staff M.DJorge The [place] [address] Patient Name: LISHA VALENTIN MRN: [id number] date: 1990 Sex: F Assigned Patient Location: [facility] Current Patient Location: Accession/Order Number: [id number] Exam Date: 08/26/2024 08:59 Report Date: 08/27/2024 [...] Miguel M.D. Signed By:08/27/24429 DD/ 6 TD/TT: Vulcan Crewmember: us Maria Helder DO [facility] Final Result documented in this encounter Visit Diagnoses Not on filedocumented in this encounter Care Teams Stringed Instrument Assembler Relationship Specialty Start Date End Date Sarah Lopez DO [address] [place] [address] Referring Physician Emergency Medicine 02/18/23 documented as of this encounter
--- OUTSIDE RECORDS SUMMARY | 2025-03-05 11:07 | XMS_ITS | Encounter Summary ---
Author Organization [facility] Address [address] [place] [address] Care Team Providers Care Photoengraving Etcher Apprentice Name Role Phone Sarah Lopez DO Unavailable [phone] Encounter Details Date Type Department Care Team (Late st Contact Info) Description 01/27/2025 Abstract [facility] BCP OB [address] [place] [address] Malcolm Pendleton DO [facility] [address], [id number] Social History Tobacco Use Types Packs/Day Years [...] [place] [address] Malcolm Pendleton DO [facility] [place] [address] 11/19/2025 10:50 AM EST Office Visit [facility] [address] [place] [address] Kayleigh Chung APRN-PRODUCTION MECHANIC [employer] [address] [place] [address] documented as of this encounter Visit Diagnoses Not on filedocumented in this encounter Care Teams Photoengraving Etcher Apprentice Relationship Specialty Start Date End Date Sarah Lopez DO [address] [place] [address] Referring Physician Emergency Medicine 02/18/23 documented as of this encounter
--- OUTSIDE RECORDS SUMMARY | 2025-03-05 11:07 | XMS_ITS | Encounter Summary ---
Author Organization [facility] Address [address] [place] [address] [place] [address] Care Team Providers Care Health And Wellness Sales Consultant Name Role Phone Sarah Lopez DO Unavailable [phone] Encounter Details Date Type Department Care Team (Late Contact Info) Description 11/10/2024 Abstract [facility] ONC [address] [place] [address] Ingrid Esquivel NP Social History Tobacco Use [...] Routine [facility] BCP OB [address] [place] [phone] Malcolm Pendleton DO [address] [place] [address] 11/19/2025 10:50 AM EST Office Visit [facility] [address] [place] [address] Kayleigh Chung, PRODUCTION PROOFREADER-TACK DRILLER [address] [place] [address] documented as of this encounter Visit Diagnoses Not on filedocumented in this encounter Care Teams Health And Wellness Sales Consultant Relationship Specialty Start Date End Date Sarah Lopez DO [address] [place] [address] Referring Physician Emergency Medicine 02/18/23 documented as of this encounter
--- OUTSIDE RECORDS SUMMARY | 2025-03-05 11:07 | XMS_ITS | Encounter Summary ---
Author Organization [facility] Address [address] [place] [address] Care Team Providers Care Esthetician Makeup Artist Name Role Phone Sarah Lopez DO Unavailable Encounter Details Date Type Department Care Team (Late st Contact Info) Description 01/20/2025 Abstract [facility] BCP OB [address] [place] [address] Malcolm Pendleton DO [facility] [address], [facility]11 Social History Tobacco Use Types Packs/Day Years [...] Routine [facility] BCP OB [address] [place] [address] Malcolm Pendleton DO [facility] [place] [address] 11/19/2025 10:50 AM EST Office Visit [facility] [address] [place] [address] Kayleigh Chung APRN-APRON OPERATOR [address] [place] [address] documented as of this encounter Visit Diagnoses Not on filedocumented in this encounter Care Teams Esthetician Makeup Artist Relationship Specialty Start Date End Date Sarah Lopez DO [address] [place] [address] Referring Physician Emergency Medicine 02/18/23 documented as of this encounter
--- OUTSIDE RECORDS SUMMARY | 2025-03-05 11:07 | XMS_ITS | Encounter Summary ---
Author Organization [facility] Address [address] [place] [address] Care Team Providers Care Rn Shift Mgr Name Role Phone Sarah Lopez DO Unavailable [phone] Encounter Details Date Type Department Care Team (Late st Contact Info) Description 12/17/2024 Abstract [facility] BCP OB [address] [place] [address] Malcolm Pendleton DO [facility] [address], [facility] Social History Tobacco Use Types [...] Routine [facility] BCP OB [address] [place] [address] Malcolm Pendleton DO [facility] [place] [address] 11/19/2025 10:50 AM EST Office Visit [facility] [address] [place] [address] Kayleigh Chung APRN-PHLEBOTOMY DIRECTOR [address] [place] [address] documented as of this encounter Visit Diagnoses Not on filedocumented in this encounter Care Teams Rn Shift Mgr Relationship Specialty Start Date End Date Sarah Lopez DO [address] [place] [address] Referring Physician Emergency Medicine 02/18/23 documented as of this encounter
--- OUTSIDE RECORDS SUMMARY | 2025-03-05 11:07 | XMS_ITS | Clinical Summary ---
Author Organization [facility] Healthcare Address [address] [place] [address] Care Team Providers Care Yacht Captain Name Role Phone Sarah Lopez DO Unavailable [phone] Allergies Active Allergy Reactions Criticality Noted Date [...] 11 5 Active valACYclovir (Valtrex) 500 MG tabletIndications: HSV (herpes simplex virus) infection Take 1 tablet (500 mg) by mouth Daily 30 tablet 11 5 026 Active ondansetron ODT (Zofran-ODT) 4 MG disintegrating tabletIndications: Nausea Take 1 tablet (4 mg) by mouth every 6 (six) hours if needed for nausea or vomiting 30 tablet 2 5 025 Active amoxicillin (Amoxil) 500 MG capsule Take 1,000 mg by mouth in the morning and 1,000 mg before bedtime. 5 Active ondansetron ODT (Zofran-ODT) 4 MG disintegrating tabletIndications: Nausea Take 1 tablet (4 mg) by mouth every 6 (six) hours if needed for nausea or vomiting 30 tablet 2 025 Discontin ued(Reord er) Active Problems Problem Noted Date Diagnosed Date 10 weeks gestation of ([facility]) 2023 First trimester ([facility]) 09/11/2024 Estimated Date of Delivery Comme nts Yes 04/05/2025 Based on Ultraso und Encounters Date Type Department Care Team Description 02/26/2025 Clinisync Result Encounter NOMS External Department Unsolicited Maria Pendleton, DO 02/24/2025 11:40 AM EDT [facility]ine [facility] [address] [place] [address] Maria Pendleton, DO 34 weeks gestation of ([facility]); Third trimester ([facility]) 02/24/2025 Bamboo flowsheet [facility] [place] [address] [place] [address] Maria Pendleton, 02/20/[address] [facility] [place] [address] Mary Cruz MA 02/19/2025 Clinisync Result Encounter NOMS External Department Unsolicited Maria Pendleton, DO 02/16/2025 Abstract NOM[facility] [address] [place] [address] Maggy Sanz LPN 02/12/2025 Clinisync Result Encounter NOMS External Department Unsolicited Maria Pendleton, DO 02/11/2025 10:50 AM EDT [facility] [address] [place] [address] Priscilla Warren PA Third trimester ([facility]); 32 weeks gestation of ([facility]); Nausea 02/11/2025 Bamboo flowsheet [facility] [address] [place] [address] Priscilla Warren PA 02/04/[address] [facility] [address] [place] [address] Suze Lopez LPN 01/30/[address] [facility] [address] [place] [address] Mary Cruz MA 01/28/2025 External Result Encounter NOMS External Department Unsolicited Priscilla Warren PA 01/27/2025 8:30 AM EDT [facility]ine [facility] [address] [place] [address] Maria Pendleton, Third trimester ([facility]); 30 weeks gestation of ([facility]); H/O pre-eclampsia in prior , currently ([facility]); H/O delivery, currently ([facility]); Request for sterilization 01/27/[address] [facility] [address] [place] [address] [place] [address] Maria Pendleton, 01/27/[address] [facility] [address] [place] [address] [place] [address] Maria Pendleton, 01/20/[address] [facility] [address] [place] [address] [place] [address] Maria Pendleton, 01/15/[address] [facility] [address] [place] [address] [place] [address] Christy Cui MA 01/14/2025 11:20 AM EDT [facility]ine [facility] [address] [facility] [address] Reema Leslie NP Third trimester ([facility]); 28 weeks gestation of ([facility]) 01/14/2025 External Result Encounter NOMS External Department Unsolicited Maria Pendleton, DO 01/14/[address] [facility] [address] [place] [address] [place] [address] Maria Pendleton, 01/14/2025 Bamboo flowsheet NOM[facility] [address] [place] [address] Reema Leslie, JEFFERSON 01/09/2025 Results Follow-Up NOM[facility] [address] [place] [address] Suze Lopez, GROUND [employer]RE[address] [place] 01/08/2025 Results Follow-Up [facility]OM[facility] [address] [place] [address] Suze Lopez, GROUND [employer] [place] 01/08/2025 Telephone [facility] [address] [place] [address] Suze Lopez, GROUND [employer] [place] 01/08/2025 Clinisync Result Encounter NOMS External Department Unsolicited Maria Pendleton, DO 01/06/2025 Results Follow-Up [facility]OM[facility] [address] [place] [address] Suze Lopez, GROUND [employer] [place] 01/06/2025 Clinisync Result Encounter NOMS External Department Unsolicited Priscilla Warren PA 12/30/2024 11:10 AM EDT Routine [facility]OM[facility] [address] [place] [address] Maria Pendleton, DO Second trimester ([facility]); 26 weeks gestation of ([facility]); Seen in emergency room; Exposure to STD; HSV (herpes simplex virus) infection 12/30/2024 External Result Encounter NOMS External Department Unsolicited Maria Pendleton, 12/30/2024 Bamboo flowsheet [facility]OM[facility] [address] [place] [address] Maria Pendleton, DO 12/29/2024 Abstract [facility] [address] [place] [address] Maria Pendleton, 12/23/2024 Telephone [facility] [address] [place] [address] Christy Cui MA 12/17/2024 Abstract [facility] [address] [place] [address] Maria Pendleton DO 12/16/2024 Abstract [facility] [address] [place] [address] Maria Pendleton DO from Last 3 Months Family History Medical [...] Pressure 120/68 02/24/2025 12:01 PM EDT Pulse 83 03/11/2023 9:58 AM EDT Temperature 36.6 C (97.8 F) 03/11/2023 9:58 AM EDT Respiratory Rate - - Oxygen Saturation 99% 03/11/2023 9:58 AM EDT Inhaled Oxygen Concentration - - Weight 92.6 kg (204 lb 1.9 oz) 02/24/2025 12:01 PM EDT Height 160 cm (5' 3 ) 02/19/2024 10:46 AM EDT Body Mass Index 36.16 02/19/2024 10:46 AM EDT Plan of Treatment Upcoming Encounters Date Type Department Care Team (Late st Contact Info) Description 03/10/2025 11:10 AM EDT Routine [facility] [address] [place] [address] Maria Pendleton, DO [address] [place] [address] 11/19/2025 10:50 AM EST Office Visit [facility] [address] [place] [address] Kayleigh Chung APRN-MOSAIC LAYER [address] [place] [address] Procedures Procedure Name Priority Date/Time Associated Diagnosis Comments US OB BPP W NON-STRESS 02/26/2025 1:13 PM EDT POCT URINALYSIS DIPSTICK Routine 02/24/2025 12:05 PM EDT 34 weeks gestation of ([facility]) Third trimester ([facility]) US OB BPP W NON-STRESS 02/19/2025 11:29 AM EDT US OB BPP W NON-STRESS 02/12/2025 9:06 AM EDT POCT URINALYSIS DIPSTICK Routine 02/11/2025 11:00 AM EDT Third trimester ([facility]) 32 weeks gestation of ([facility]) FERRITIN Routine 01/28/2025 8:32 AM EDT TRANSFERRIN Routine 01/28/2025 8:32 AM EDT RECURRENT VAGINITIS (HTRX) Routine 01/14/2025 11:52 AM EDT POCT URINALYSIS DIPSTICK Routine 01/14/2025 11:31 AM EDT Third trimester ([facility]) TBH CREATININE Routine 01/08/2025 8:35 AM EDT ALL BUN Routine 01/08/2025 8:35 AM EDT ALL CBC WITH AUTO DIFF Routine 01/08/2025 8:35 AM EDT TBH URINE MICROSCOPIC ONLY Routine 01/08/2025 8:05 AM EDT TBH UA (CLEAN/CATCH) TANGLED YARN WORKER/MICRO IF IND. Routine 01/08/2025 8:05 AM EDT GLUCOSE 1 HOUR Routine 01/06/2025 10:42 AM EDT ALL CBC WITH AUTO DIFF Routine 01/06/2025 10:42 AM EDT RECURRENT VAGINITIS (HTRX) Routine 12/30/2024 3:26 PM EDT from Last 3 Months Results * US OB BPP W NON-STRESS (02/26/2025 1:13 PM EDT) Only the most recent of3 resultswithin the time period is included. Anatomical Region Laterality Modality Other 02/26/2025 1:13 PM EDT Narrative 02/26/2025 1:34 PM EDT The [address] [address] Ultrasound Report Signed Patient: LISHA VALENTIN MR#: [id number] : 1990 Acct:[id number] Age/Sex: 34 / F ADM Date: 02/26/25 Loc: US Attending Dr: Maria Pendleton D.O. Ordering Physician: Maria Pendleton D.O. Date of Service: 02/26/25 Procedure(s): US OB BPP w non-stress Accession Number(s): [id number] cc: Maria Pendleton D.O.; Physician,Non-Staff Kacey The [address] [address] Patient Name: LISHA VALENTIN MRN: [id number] date: 1990 Sex: F Assigned Patient Location: US Current Patient Location: ED.MAIN Accession/Order Number: [id number] Exam Date: 02/26/2025 13:13 Report Date: 02/26/2025 13:13 At the request of: MARIA PENDLETON DO Procedure: US OB BPP w non-stress Biophysical profile. Reason for exam: LGA. COMPARISON: BPP 02/19/2025. TECHNIQUE: Transabdominal imaging of the gravid uterus was obtained. FINDINGS: Food Expeditor reports a BPP of 8 out of 8. VIDA is normal at 16.4 cm. heart rate 135 bpm. US/US OB BPP w non-stress IMPRESSION: BPP 8 out of 8. Impression dictated by: Leroy Mancera Jr., D.O. 02/26/2025 1:13 PM Dictation Location: [place] [address] Electronically authenticated by: [id number] Y Date: 02/26/2025 13:13 Dictated By: Leroy Mancera M.D. Signed By: 02/26/25 1334 DD/ 1313 TD/TT: Transmission Inspector: Procedure Note Radiology, Radiologist, MD - 02/26/2025 [place] [address] Ultrasound Report Signed Patient: LISHA VALENTIN GMR#: [id number] : 1990Acct:[id number] Age/Sex: 34 / FADM Date: 02/26/25 Loc: US Attending Dr: Maria Pendleton D.O. Ordering Physician: Maria Pendleton D.O. Date of Service: 02/26/25 Procedure(s): US OB BPP w non-stress Accession Number(s): [id number] cc: Maria Pendleton D.O.; Physician,Non-Staff Kacey [address] [address] Patient Name: LISHA VALENTIN MRN: [id number] date: 1990 Sex: F Assigned Patient Location: US Current Patient Location: ED.MAIN Accession/Order Number: [id number] Exam Date: 02/26/2025 13:13 Report Date: 02/26/2025 13:13 At the request of: MARIA PENDLETON DO Procedure: US OB BPP w non-stress Biophysical profile. Reason for exam: LGA. COMPARISON: BPP 02/19/2025. TECHNIQUE: Transabdominal imaging of the gravid uterus was obtained. FINDINGS: Food Expeditor reports a BPP of 8 out of 8. VIDA is normal at 16.4cm. heart rate 135 bpm. US/US OB BPP w non-stress IMPRESSION: BPP 8 out of 8. Impression dictated by: Leroy Mancera Jr., D.O. 02/26/2025 1:13 PM Dictation Location: [place] [address] Electronically authenticated by: [id number] Y Date: 3:13 Dictated By: Leroy Mancera M.D. Signed By:02/26/25 1334 DD/ 1313 TD/TT: Transmission Inspector: us Maria Pendleton DO [facility] Final Result * (ABNORMAL) POCT urinalysis dipstick manually resulted (02/24/2025 12:05 PM EDT) Only the most recent of3 resultswithin [...] Positive Urine 02/24/2025 12:0 5 PM EDT Maria Pendleton DO POINT OF CARE TEST ENTER/EDIT OR DERABLES Final Result * Transferrin (01/28/2025 8:32 AM EDT) TRANSFERRIN 226 203 - 362 mg/dL 01/28/2025 11:02 AM EDT [facility] Other Topography unknown / Unknown 01/28/2025 8:32 AM EDT 01/28/2025 8:32 AM EDT Priscilla SRIVASTAVA LAB BLOOD ORDERABLES Final Resul t Performing Organization Address City/[facility]/ZIP Co de Phone Number [address] [address], [address] [address] * Ferritin (01/28/2025 8:32 AM EDT) FERRITIN 43.0 11.0 - 306.8 ng/mL 01/28/2025 11:09 AM EDT [facility] Other Topography unknown / Unknown 01/28/2025 8:32 AM EDT 01/28/2025 8:32 AM EDT Priscilla SRIVASTAVA LAB BLOOD ORDERABLES Final Resul t Performing Organization Address City/[facility]/ZIP Co de Phone Number [address] [address], [facility] [address] [place] [address] * (ABNORMAL) RECURRENT VAGINITIS (HTRX) (01/14/2025 11:52 AM EDT) Only the most recent of2 resultswithin the time period is included. [facility] ATOPOBIUM VAGINAE 25.517(A) 19.961 - 24.689 ppm 01/15/2025 7:26 AM EDT [facility] ATOPOBIUM VAGINAE Detected(A) 19.961 - 24.689 ppm 01/15/2025 7:26 AM EDT [facility] BVAB 2,3 (BACTERIAL VAGINOSIS ASSOCIATED BACTERIA 2, 3); MOBILUNCUS SPP 23.796(A) 19.961 - 24.689 ppm 01/15/2025 7:26 AM EDT [facility] BVAB 2,3 (BACTERIAL VAGINOSIS ASSOCIATED BACTERIA 2, 3); MOBILUNCUS SPP Detected(A) 19.961 - 24.689 ppm 01/15/2025 7:26 AM EDT [facility] MARION ALBICANS, PARAPSILOSIS, TROPICALIS 0.000 19.961 - 30.770 ppm 01/15/2025 7:26 AM EDT [facility] MARION ALBICANS, PARAPSILOSIS, TROPICALIS Not Detected 19.961 - 30.770 ppm 01/15/2025 7:26 AM EDT [facility] MARION GLABRATA 0.000 23.000 - 32.138 ppm 01/15/2025 7:26 AM EDT [facility] MARION GLABRATA Not Detected 23.000 - 32.138 ppm 01/15/2025 7:26 AM EDT [facility] MARION KRUSEI 0.000 23.000 - 32.271 ppm 01/15/2025 7:26 AM EDT [facility] MARION KRUSEI Not Detected 23.000 - 32.271 ppm 01/15/2025 7:26 AM EDT [facility] CHLAMYDIA TRACHOMATIS 0.000 23.000 - 31.467 ppm 01/15/2025 7:26 AM EDT [facility] CHLAMYDIA TRACHOMATIS Not Detected 23.000 - 31.467 ppm 01/15/2025 7:26 AM EDT [facility] GARDNERELLA VAGINALIS 0.000 19.961 - 24.689 ppm 01/15/2025 7:26 AM EDT [facility] GARDNERELLA VAGINALIS Not Detected 19.961 - 24.689 ppm 01/15/2025 7:26 AM EDT [facility] MEGASPHAERA (TYPES 1, 2) 0.000 19.961 - 24.689 ppm 01/15/2025 7:26 AM EDT [facility] MEGASPHAERA (TYPES 1, 2) Not Detected 19.961 - 24.689 ppm 01/15/2025 7:26 AM EDT [facility] NEISSERIA GONORRHOEAE 0.000 23.000 - 32.117 ppm 01/15/2025 7:26 AM EDT [facility] NEISSERIA GONORRHOEAE Not Detected 23.000 - 32.117 ppm 01/15/2025 7:26 AM EDT [facility] TRICHOMONAS VAGINALIS 0.000 23.000 - 32.119 ppm 01/15/2025 7:26 AM EDT [facility] TRICHOMONAS VAGINALIS Not Detected 23.000 - 32.119 ppm 01/15/2025 7:26 AM EDT [facility] MYCOPLASMA GENITALIUM 0.000 19.961 - 24.689 ppm 01/15/2025 7:26 AM EDT [facility] MYCOPLASMA GENITALIUM Not Detected 19.961 - 24.689 ppm 01/15/2025 7:26 AM EDT [facility] Tissue 01/14/2025 11:5 2 AM EDT 01/15/2025 2:13 AM EDT us Maria Pendleton DO LAB BLOOD ORDERABLES Final Resul t [facility] [address] [place] [address] * TBH CREATININE (01/08/2025 8:35 AM EDT) CREATININE 0.63 0.55 - 1.02 mg/dL TBH TB EGFR-AF GIBRALTARIAN >60 >=60 mL/min/1.7 3m 2 TBH TBH EGFR-NON AF GIBRALTARIAN >60 >=60 mL/min/1.7 3m 2 TBH 01/08/2025 8:35 AM EDT 01/08/2025 8:39 AM EDT Narrative [facility] - 01/08/2025 8:49 AM EDT us Maria Helder DO [facility] Final Result [facility] * (ABNORMAL) ALL CBC WITH AUTO DIFF (01/08/2025 8:35 AM EDT) Only the most recent of2 resultswithin the time period is included. TB WBC 8.9 4.0 - 11.0 10 3/uL TBH TB RBC 3.93(L) 4.20 - 5.40 10 6/uL TBH TB HGB 9.4(L) 12.0 - 16.0 g/dL TB TB HCT 30.3(L) 36.0 - 48.0 % TBH TBH MCV 77.1(L) 81.0 - 99.0 fL TBH TB MCH 23.9(L) 26.7 - 34.0 pg TBH TB MCHC 31.0 29.9 - 35.2 g/dL TB [...] DO [facility] Final Result Performing Organization Address City/[facility]/ZIP Co de Phone Number [facility] * ALL BUN (01/08/2025 8:35 AM EDT) BLOOD UREA NITROGEN 8.0 7.0 - 18.0 mg/dL TBH 01/08/2025 8:35 AM EDT 01/08/2025 8:39 AM EDT Narrative [facility] - 01/08/2025 8:49 AM EDT Maria Helder DO [facility] Final Result Performing Organization Address [facility]/ZIP Co de Phone Number [facility] TB * (ABNORMAL) TBH URINE MICROSCOPIC ONLY (01/08/2025 [...] Final Result [facility] * (ABNORMAL) TBH UA (CLEAN/CATCH) TANGLED YARN WORKER/MICRO IF IND. (01/08/2025 8:05 AM EDT) COLOR [...] DO [facility]IN[facility] Final Result Performing Organization Address [facility]/ZIP Co de Phone Number [facility] * GLUCOSE 1 HOUR (01/06/2025 10:42 AM EDT) GLUCOSE 1 HOUR 124 <130 mg/dL TBH 01/06/2025 10:4 2 AM EDT 01/06/2025 10:43 AM EDT Narrative [facility] - 01/06/2025 11:08 AM EDT Priscilla SRIVASTAVA LAB BLOOD ORDERABLES Final Resul t [facility] from Last 3 Months Insurance [employer] [facility] Care Teams Yacht Captain Relationship Specialty Start Date End Date Sarah Lopez DO [address] [place] [address] Referring Physician Emergency Medicine 02/18/23"
--- OUTSIDE RECORDS SUMMARY | 2025-03-05 11:07 | XMS_ITS | Encounter Summary ---
Author Organization [facility] Address [address] [facility] [email or web address] [address] Care Team Providers Care Shooter Helper Name Role Phone Sarah Lopez DO Unavailable [phone] Encounter Details Date Type Department Care Team (Late st Contact Info) Description 11/21/2024 External Result Encounter [facility] [address] [place] [address] Maria Pendleton DO [facility] [address], [place] [address] Social History Tobacco Use Types Packs/Day Years [...] Routine [facility] [address] [place] [address] Maria Pendleton DO [facility] [place] [address] 11/19/2025 10:50 AM EST Office Visit [facility] [address] [place] [address] Kayleigh Chung, FLOOR GRINDER-QUALITATIVE FIELD COORDINATOR [address] [place] [address] documented as of this encounter Procedures Procedure Name Priority Date/Time Associated Diagnosis Comments US OB 14+ WEEKS ANATOMY SCAN 11/21/2024 3:40 PM EST documented in this encounter Results * US OB 14+ weeks anatomy scan (11/21/2024 3:40 PM EST) Anatomical Region Laterality Modality Body Ultrasound 11/21/2024 3:40 PM EST Narrative 11/21/2024 3:40 PM EST THIS EXAM WAS PERFORMED AT [facility] NAME: MARIAN HUSAIN : 1990 SEX: F Accession Number: [id number] ORDERING PHYSICIAN: HENNY MONTGOMERY REFERRING PHYSICIAN: MARIA PENDLETON Coding ----- --------- Procedures 49815: Ultrasound, uterus, real time with image documentation, and maternal evaluation plus detailed anatomic examination, transabdominal approach;single or first gestation 82568: Transvaginal Ultrasound (OB) Indication ----- --------- Screening [...] 0 lb 13 oz EFW by Hadlock ([id number]-GU-FL) Head / Face / Neck Biometry: Cephalic index 0.73 5% Nicolaides Enterprise Security Architect 4.4 mm CM 4.2 mm 20% Nicolaides [...] Heart / Thorax RVOT view. LVOT view. 5-yelxlz-kruzsct view. Bicaval view. Extremities / Left hand. [...] Right choroid plexus cyst is identified. Per [facility] guidelines, isolated chorioid plexus cysts (CPCs) are a normal variant of no clinical importance with no indication for follow-up ultrasound imaging or evaluation in the setting of low risk cell free DNA screening. Double right renal artery identified. Recommendations ----- --------- Please see [facility] documentation from today. The patient is scheduled in four to six week(s) to complete anatomic survey. Subsequent follow up or other follow up as clinically determined by primary OB provider unless otherwise specified by [facility]. Results forwarded to ordering provider so they can follow up with the patient as necessary. The copy-to physician of this order is MARIA Brito The ordering physician of this order is HENNY Pineda Procedure Note Radiology, Radiologist, MD - 11/21/2024 THIS EXAM WAS PERFORMED AT [facility] NAME: MARIAN HUSAIN : 1990 SEX: F Accession Number: [id number] ORDERING PHYSICIAN: HENNY MONTGOMERY REFERRING PHYSICIAN: MARIA PENDLETON Coding ----- --------- Procedures 09356: Ultrasound, uterus, real time with imagedocumentation, and maternal evaluation plus detailed anatomic examination, transabdominalapproach;single or first gestation 90873: Transvaginal Ultrasound (OB) Indication ----- --------- Screening [...] 0 lb 13 oz EFW by Hadlock (TDW-WX-TT-FL) Head / Face / Neck Biometry: Cephalic index 0.73 5% Nicolaides Enterprise Security Architect 4.4 mm CM 4.2 mm 20% Nicolaides [...] Heart / Thorax RVOT view. LVOT view. 2-edpxcx-wpcefmh view. Bicavalview. Extremities / Left hand. Skeleton [...] Right choroid plexus cyst is identified. Per [facility] guidelines, isolated chorioid plexus cysts (CPCs) are a normalvariant of no clinical importance with no indication for follow-up ultrasound imaging or evaluation in the setting of lowrisk cell free DNA screening. Double right renal artery identified. Recommendations ----- --------- Please see [facility] documentation from today. The patient is scheduled in four to six week(s) to complete anatomicsurvey. Subsequent follow up or other follow up as clinically determined byprimary OB provider unless otherwise specified by [facility]. Results forwarded to ordering provider so they can follow up with thepatient as necessary. The copy-to physician of this order is MARIA Brito The ordering physician of this order is HENNY Pineda us Maria Pendleton DO IMG OB US PROCEDURES Final Resul t documented in this encounter Visit Diagnoses Not on filedocumented in this encounter Care Teams Shooter Helper Relationship Specialty Start Date End Date Sarah Lopez DO [address] [place] [address] Referring Physician Emergency Medicine 02/18/23 documented as of this encounter
--- OUTSIDE RECORDS SUMMARY | 2025-03-05 11:07 | XMS_ITS | Encounter Summary ---
Author Organization [facility] Address [address] [place] [address] Care Team Providers Care Putty Worker Name Role Phone Sarah Lopez DO Unavailable [phone] Encounter Details Date Type Department Care Team (Late st Contact Info) Description 08/26/2024 Abstract [facility] [address] [place] [address] Malcolm Pendleton DO [facility] [address], [facility] Social History Tobacco Use Types Packs/Day [...] Routine [facility] B[facility] OB [address] [place] [address] Malcolm Pendleton DO [facility] [place] [address] 11/19/2025 10:50 AM EST Office Visit [facility] [address] [place] [address] Kayleigh Chung APRN-TAPER MACHINE [address] [place] [address] documented as of this encounter Visit Diagnoses Not on filedocumented in this encounter Care Teams Putty Worker Relationship Specialty Start Date End Date Sarah Lopez DO [address] [place] [address] Referring Physician Emergency Medicine 02/18/23 documented as of this encounter
--- OUTSIDE RECORDS SUMMARY | 2025-03-05 11:07 | XMS_ITS | Clinical Summary ---
Author Organization [facility] Address [id number] [address] [place] [address] Care Team Providers Care Director Of Speech Pathology Name Role Phone No Pcp, No Pcp [...] Team Description 02/26/2025 Telephone Maternal- Medicine at [facility] [address] [place] [address] Caroline Chavira RN 02/04/2025 Telephone Maternal Medicine [place] [address] [place] [address] [place] [address] Josey Valentine 01/28/2025 Orders Only Maternal- Medicine at [facility] [address] [place] [address] Marci Coppola CMA Thalassemia alpha carrier (Primary Dx); Family history of sickle cell trait; Family history of DVT; History of anemia; Choroid plexus cyst of fetus affecting care of mother, antepartum, fetus 1; Abnormal genetic test during ; Previous delivery affecting , antepartum; History of pre-eclampsia in prior , currently in first trimester 01/28/2025 Telephone Maternal Medicine [place] [address] [place] [phone] Josey Valentine 01/27/2025 9:56 AM EDT - 01/27/2025 11:59 PM EDT Hospital Encounter [facility] - Ultrasound [address] [place] [address] History of anemia Discharge Disposition: Home 01/27/2025 Travel 01/13/2025 9:00 AM EDT - 01/13/2025 11:59 PM EDT Hospital Encounter [facility] - Ultrasound [address] [place] [address] Alpha thalassemia silent carrier Discharge Disposition: Home 01/13/2025 Travel 12/16/2024 8:46 AM EDT - 12/16/2024 11:59 PM EDT Hospital Encounter [facility] - Ultrasound [address] [place] [address] Alpha thalassemia silent carrier Discharge Disposition: Home 12/16/2024 Travel 12/12/2024 9:00 AM EDT Telemedicine Maternal- Medicine at [facility] [address] [place] [address] Torey Montgomery MD Allen Jo P, LGC Thalassemia alpha carrier (Primary Dx); Abnormal genetic test during ; Family history of sickle cell trait; Family history of DVT 12/12/2024 Travel 12/09/2024 Telephone Maternal- Medicine at [facility] [address] [place] [address] Natalie Díaz, ROMEO 12/09/2024 Orders Only Maternal- Medicine at [facility] [address] [place] [address] Natalie Díaz, RN Choroid plexus cyst of fetus affecting care of mother, antepartum, fetus 1 12/09/2024 Orders Only Maternal- Medicine at [facility] [address] [place] [address] Natalie Díaz, RN Thalassemia alpha carrier (Primary Dx) 12/08/2024 Telephone Maternal- Medicine at [facility] [address] [place] [address] Josey Valentine 12/08/2024 Documentation Maternal- Medicine at [facility] [address] [place] [address] Torey Montgomery MD from Last 3 Months Family History Medical [...] Procedure Name Priority Date/Time Associated Diagnosis Comments [facility] OB FOLLOW-UP, 1 FETUS Routine 01/27/2025 10:46 AM EDT History of anemia [facility] LMTD OB, 1 OR MORE FETUS Routine 01/13/2025 9:29 AM EDT Alpha thalassemia silent carrier [facility] LMTD OB, 1 OR MORE FETUS Routine 12/16/2024 9:44 AM EDT Alpha thalassemia silent carrier from Last 3 Months Results * US [facility] OB FOLLOW-UP, 1 FETUS (01/27/2025 10:46 AM EDT) Only the most recent of3 resultswithin the time period is included. Anatomical Region Laterality Modality OB-MASTER WELDER Ultrasound 01/27/2025 10:0 9 AM EDT Narrative 01/27/2025 11:10 AM EDT NAME: MARIAN HUSAIN : 1990 SEX: F Accession Number: [id number] ORDERING PHYSICIAN: TOREY MONTGOMERY REFERRING PHYSICIAN: MARIA HARTLEY Coding ----- --------- Procedures 97784: Follow-up Ultrasound, per fetus [address]: Doppler velocimetry, ; middle cerebral artery Indication [...] EFW (oz) 3 oz EFW by: Hadlock ([id number]-FL) Extended Tibia 48.0 mm 29w 0d 16% Osiel Glove Presser 3.6 mm CM 5.9 mm 19% Nicolaides [...] Heart/Thorax: 4-chamber view. RVOT view. LVOT view. 5-edgxjv-hxbbpbh view. Situs. Aortic arch view. Bicaval view. [...] PI 1.99 30% [place] RI 0.84 71% [facility] PS 50.72 cm/s PS 1.24 MoM [...] HUSAIN : 1990 SEX: F Accession Number: [id number] ORDERING PHYSICIAN: TOREY MONTGOMERY REFERRING PHYSICIAN: MARIA HARTLEY Coding ----- --------- Procedures [id number]: Follow-up Ultrasound, per fetus 27615: Doppler velocimetry, ; middle cerebral artery Indication [...] EFW (oz) 3 oz EFW by: Hadlock ([id number]) Extended Tibia 48.0 mm 29w 0d 16% Osiel Glove Presser 3.6 mm CM 5.9 mm 19% Nicolaides [...] Heart/Thorax: 4-chamber view. RVOT view. LVOT view. 1-dtlvic-ucmtjwp view.Situs. Aortic arch view. Bicaval view. Ductal [...] PI 1.99 30% [place] RI 0.84 71% Elzbieta PS 50.72 cm/s PS 1.24 MoM ED [...] byprimary OB provider unless otherwise specified by M. Results forwarded to ordering provider so they can follow up with thepatient as necessary. us Torey Montgomery MD [facility] ORDERABLES Final Resul t from Last 3 Months Insurance [employer] [place] [employer] Care Teams Director Of Speech Pathology Relationship Specialty Start Date End Date No Pcp, No Pcp KRISTOPHER Mccormick [id number] PCP - General Family Medicine 02/21/24
--- OUTSIDE RECORDS SUMMARY | 2025-03-05 11:07 | XMS_ITS | Encounter Summary ---
Author Organization [facility] Address [address] [place] [address] Care Team Providers Care Maintenance Instructor Name Role Phone Sarah Lopez DO Unavailable [phone] Encounter Details Date Type Department Care Team (Late st Contact Info) Description 11/21/2024 Abstract [facility] B[facility] OB [address] [place] [address] Malcolm Pendleton DO [facility] [address], [facility]11 Social History Tobacco Use Types Packs/Day Years [...] [place] [address] Malcolm Pendleton DO [facility] [place] [address] 11/19/2025 10:50 AM EST Office Visit [facility] [address] [place] [address] Kayleigh Chung APRN-GEOTECHNICAL DEPARTMENT MANAGER [address] [place] [address] documented as of this encounter Visit Diagnoses Not on filedocumented in this encounter Care Teams Maintenance Instructor Relationship Specialty Start Date End Date Sarah Lopez DO [address] [place] [address] Referring Physician Emergency Medicine 02/18/23 documented as of this encounter
--- OUTSIDE RECORDS SUMMARY | 2025-03-05 11:07 | XMS_ITS | Encounter Summary ---
Author Organization [facility] Address [address] [place] [address] Care Team Providers Care Plate Filler Name Role Phone Sarah Lopez DO Unavailable [phone] Encounter Details Date Type Department Care Team (Late st Contact Info) Description 12/29/2024 Abstract [facility] BCP OB [address] [place] [address] Malcolm Pendleton DO [facility] [address], [facility]11 Social History Tobacco Use Types Packs/Day [...] Routine [facility] BCP [place] [address] [place] [address] Malcolm Pendleton DO [facility] [place] [address] 11/19/2025 10:50 AM EST Office Visit [facility] [address] [place] [address] Kayleigh Chung APRN-MANAGER SAS [address] [place] [address] documented as of this encounter Visit Diagnoses Not on filedocumented in this encounter Care Teams Plate Filler Relationship Specialty Start Date End Date Sarah Lopez DO [address] [place] [address] Referring Physician Emergency Medicine 02/18/23 documented as of this encounter
--- OUTSIDE RECORDS SUMMARY | 2025-03-05 11:07 | XMS_ITS | Encounter Summary ---
Author Organization [facility] Address [address] [place] [address] Care Team Providers Care Stained Glass Window Designer Name Role Phone Sarah Lopez DO Unavailable [phone] Encounter Details Date Type Department Care Team (Late st Contact Info) Description 09/15/2024 Abstract [facility] BCP OB [address] [place] [address] Malcolm Pendleton DO [facility] [address], [facility]11 Social History Tobacco Use Types Packs/Day [...] [place] [address] Malcolm Pendleton DO [facility] [place] [address] 11/19/2025 10:50 AM EST Office Visit [facility] [address] [place] [address] Kayleigh Chung APRN-ELEMENTARY READING SPECIALIST [address] [place] [address] documented as of this encounter Visit Diagnoses Not on filedocumented in this encounter Care Teams Stained Glass Window Designer Relationship Specialty Start Date End Date Sarah Lopez DO [address] [place] [address] Referring Physician Emergency Medicine 02/18/23 documented as of this encounter
--- OUTSIDE RECORDS SUMMARY | 2025-03-05 11:07 | XMS_ITS | Encounter Summary ---
Author Organization [facility] Address [address] [place] [address] Care Team Providers Care Type Inspector Name Role Phone Sarah Lopez DO Unavailable [phone] Encounter Details Date Type Department Care Team (Late st Contact Info) Description 11/24/2024 Abstract [facility] BCP OB [address] [place] [address] Malcolm Pendleton DO [facility] [address], [facility]11 Social History Tobacco Use Types Packs/Day Years [...] [place] [address] Malcolm Pendleton DO [facility] [place] [address] 11/19/2025 10:50 AM EST Office Visit [facility] [address] [place] [address] Kayleigh Chung APRN-PILL PACKER [address] [place] [address] documented as of this encounter Visit Diagnoses Not on filedocumented in this encounter Care Teams Type Inspector Relationship Specialty Start Date End Date Sarah Lopez DO [address] [place] [address] Referring Physician Emergency Medicine 02/18/23 documented as of this encounter
--- OUTSIDE RECORDS SUMMARY | 2025-03-05 11:07 | XMS_ITS | Encounter Summary ---
Author Organization [facility] Address [address] [place] [address] Care Team Providers Care Immunochemist Name Role Phone Sarah Lopez DO Unavailable [phone] Encounter Details Date Type Department Care Team (Late st Contact Info) Description 01/14/2025 Abstract [facility] BCP OB [address] [place] [address] Malcolm Pendleton DO [facility] [address], [facility]11 Social History Tobacco Use Types Packs/Day [...] [place] [address] Malcolm Pendleton DO [facility] [place] [address] 11/19/2025 10:50 AM EST Office Visit [facility] [address] [place] [address] Kayleigh Chung APRN-CAR CHANGER [address] [place] [address] documented as of this encounter Visit Diagnoses Not on filedocumented in this encounter Care Teams Immunochemist Relationship Specialty Start Date End Date Sarah Lopez DO [address] [place] [address] Referring Physician Emergency Medicine 02/18/23 documented as of this encounter
--- OUTSIDE RECORDS SUMMARY | 2025-03-05 11:07 | XMS_ITS | Encounter Summary ---
Author Organization [facility] Address [address] [place] [address] Care Team Providers Care Console Assembler Name Role Phone Sarah Lopez DO Unavailable [phone] Encounter Details Date Type Department Care Team (Late st Contact Info) Description 12/16/2024 Abstract [facility] BCP OB [address] [place] [address] Malcolm Pendleton DO [facility] [address], [facility]11 Social History Tobacco Use Types Packs/Day [...] Routine [facility] BCP OB [address] [place] [address] Malcolm Pendleton DO [facility] [place] [address] 11/19/2025 10:50 AM EST Office Visit [facility] [address] [place] [address] Kayleigh Chung APRN-BACKEND TESTER [address] [place] [address] documented as of this encounter Visit Diagnoses Not on filedocumented in this encounter Care Teams Console Assembler Relationship Specialty Start Date End Date Sarah Lopez DO [address] [place] [address] Referring Physician Emergency Medicine 02/18/23 documented as of this encounter
[2025-03-05 11:36] VITALS: BP 126/71; PULSE 92
== END 2025-03-05 12:15 | disposition home or self-care (01) ==
LOC: US 11:04 → FBC 11:07
PROVIDERS: Visit Provider Obstetrics & Gynecology
DX: O26.893 Other specified pregnancy related conditions, third trimester (principal); O09.293 Supervision of pregnancy with other poor reproductive or obstetric history, third trimester; Z3A.35 35 weeks gestation of pregnancy
CPT/HCPCS: 76818

== ENCOUNTER 2025-03-09 13:06 | Outpatient (OUT) | payer OTHER, MEDICAID, SELFPAY ==
--- OUTSIDE RECORDS SUMMARY | 2024-07-23 09:30 | XMS_ITS ---
Author Organization [facility] Address [address] [place] [address] Care Team Providers Care Lifestyle Coordinator Name Role Phone Yudelka Lopez Primary Care Provider Dr. Leroy Salazar Unavailable [phone] REASON FOR VISIT cough, congestion Encounters Encounter Location Date Provider Diagnosis [facility] [address] [place] [address] 07/23/2024 Yudelka Lopez Plan Of Treatment No Information Progress Notes * LISHA FONSECA GDOB: [birth year] (34 yo F)Acc No.[id number]:07/23/2024 PROGRESS NOTES Patient: Deb SANCHEZ LISHA Moe Provider: Rowan Lopez :1990 A ge:34 Y S ex:Female Date:07/23/2024 Address:[address] [id number] Subjective: * Chief Complaints: * 1 . Cough, congestion. * Medical History: Objective: * Vitals: Assessment: Plan: * Treatment: * Images: * Electronic signature of Howard Lopez CNP on 03/09/2025 at 01:10 PM EDT Sign off status: Pending * Provider: Rowan Lopez Date: 09/22/2023 Generated for Damon dailey/Timothy/eTransmitting on: 0 03/09/2025 01:10 PM EDT
--- OUTSIDE RECORDS SUMMARY | 2024-11-28 05:20 | XMS_ITS ---
Author Organization [facility] Servic es Address [address] [facility] [place] [address] Care Team Providers Care Label Printing Machinist Name Role Phone Yudelka Lopez Primary Care Provider Dr. Leroy Salazar Unavailable [phone] REASON FOR VISIT new pt Encounters Encounter Location Date Provider Diagnosis [facility] [address] [place] [address] 11/28/2024 Leroy Salazar Plan Of Treatment No Information Progress Notes * LISHA FONSECA GDOB: [birth year] (34 yo F)Acc No.[id number]:11/28/2024 Patient: ISAAK MALCOLMLEY Moe Provider: Deb Salazar DDS :1990 A ge:34 Y S ex:Female Date:11/28/2024 Address:[address] [place] [address], [address], [id number] Pcp:Yudelka Lopez Subjective: * Chief Complaints: * 1 . New pt. * Medical History: Objective: * Vitals: Assessment: Plan: * Treatment: * Images: * Electronic signature of Dr. Leroy Salazar , DMD on 03/09/2025 at 01:10 PM EDT Sign off status: Pending * Provider: Deb Salazar DDS Date: 11/28/2024 Generated for Printi ng/Faxing/eTransmitting on: 03/09/2025 01:10 PM EDT
--- OUTSIDE RECORDS SUMMARY | 2025-02-24 11:40 | XMS_ITS | Encounter Summary ---
Author Organization [facility] Address [address] [place] [address] Care Team Providers Care Mover Name Role Phone Sarah Lopez DO Unavailable [phone] Reason for Visit * Reason Comments Routine Visit Encounter Details Date Type Department Care Team (Late st Contact Info) Description 02/24/2025 11:40 AM EDT Routine [facility] OB [address] [place] [address] Malcolm Pendleton DO [address] [facility] [address] Mary Garcia, [facility] 34 weeks gestation of ([facility]); Third trimester ([facility]) Social History Tobacco Use Types Packs/Day Years [...] nursing note reviewed. Exam conducted with a acid tank liner present. Vitals: Estimated body mass index is [...] AM EDT Routine [facility] OB [address] [facility] [place] [address] Malcolm Pendleton, [address] [facility] [address] Mary Garcia, [place] [id number] 11/19/2025 10:50 AM EST Office Visit [facility] [address] [place] [address] Kayleigh Chung, POULTRY FARM LABORER-CREWMAN ARMOURED PERSONNEL CARRIER M[address] [place] [address] documented as of this encounter Procedures Procedure Name Priority Date/Time Associated Diagnosis Comments POCT URINALYSIS DIPSTICK Routine 02/24/2025 12:05 PM EDT 34 weeks gestation of ([facility]) Third trimester ([facility]) documented in this encounter Results * (ABNORMAL) [...] Visit Diagnoses Diagnosis 34 weeks gestation of ([facility]) Third trimester ([facility]) state, incidental documented in this encounter Care Teams Mover Relationship Specialty Start Date End Date Sarah Lopez DO [address] [place] [id number] Referring Physician Emergency Medicine 02/18/23 documented as of this encounter
[2025-03-09 13:10] VITALS: BP 113/62; PULSE 98
--- OUTSIDE RECORDS SUMMARY | 2025-03-09 13:10 | XMS_ITS | Encounter Summary ---
Author Organization [facility] Address [address] [place] [address] Care Team Providers Care Internal Auditor Name Role Phone Sarah Lopez DO Unavailable [phone] Encounter Details Date Type Department Care Team (Late st Contact Info) Description 02/24/2025 Bamboo flowsheet [facility] BCP OB [address] [place] [address] Malcolm Pendleton DO [address], [place] [address] Social History Tobacco Use Types Packs/Day Years [...] [place] [address] Malcolm Pendleton DO [address] [place] [address] 11/19/2025 10:50 AM EST Office Visit [facility] [address] [place] [address] Kayleigh Chung, COAL SHOOTER-LEAD RETAIL SALES ASSOCIATE [address] [place] [address] documented as of this encounter Visit Diagnoses Not on filedocumented in this encounter Care Teams Internal Auditor Relationship Specialty Start Date End Date Sarah Lopez DO [address] [place] [address] Referring Physician Emergency Medicine 02/18/23 documented as of this encounter
--- OUTSIDE RECORDS SUMMARY | 2025-03-09 13:10 | XMS_ITS | Encounter Summary ---
Author Organization [facility] Address [id number] [address] [place] [address] Care Team Providers Care Search Director Name Role Phone No Pcp, No Pcp Primary Care Provider Unavailabl e Encounter Details Date Type Department Care Team (Late st Contact Info) Description 10/10/2024 Abstract Maternal- Medicine at [facility] [address] [place] [address] Torey Barnett MD [address] [place] [address] Social History Tobacco Use Types Packs/Day Years [...] Larissa l Result Performing Organization Address City/[facility] Co de Phone Number MANUALLY TRANSCRIBED RESULTS * Syphilis Total(Unknown Syphilis Status) (09/11/2024) Syphilis Total non- reactive MANUALLY TRANSCRIBED RESULTS us Not In System Ref Prov LAB BLOOD ORDERABLES Larissa l Result Performing Organization Address City/[facility] Co de Phone Number MANUALLY TRANSCRIBED RESULTS documented in this encounter Visit Diagnoses Not on filedocumented in this encounter Care Teams Search Director Relationship Specialty Start Date End Date No Pcp, [place] [address] PCP - General Family Medicine 02/21/24 documented as of this encounter
--- OUTSIDE RECORDS SUMMARY | 2025-03-09 13:10 | XMS_ITS | Clinical Summary ---
Author Organization [facility] Address [address] [place] [address] Care Team Providers Care Gifts Officer Name Role Phone Unavailable Primary Care [...] Plan of Treatment Not on file Insurance [facility] [place] Advance Directives * Full Code (Latest Code Status on File) Date Activated Date Inactivated Comments 01/06/2016 3:26 PM 01/10/2016 9:07 PM * Full Code Date Activated Date Inactivated Comments 01/06/2016 12:49 PM 01/06/2016 3:26 PM * Full Code Date Activated Date Inactivated Comments 01/05/2016 8:33 PM 01/06/2016 12:49 PM
--- OUTSIDE RECORDS SUMMARY | 2025-03-09 13:10 | XMS_ITS | Encounter Summary ---
Author Organization [facility] Address [address] [place] [address] Phone Care Team Providers Care Public Safety Telecommunicator Name Role Phone Yudelka Lopez Primary Care Provider + Encounter Details Date Type Department Care Team (Late st Contact Info) Description 03/31/2022 Orders Only [facility] [address] [place] [address] Conversion, Onbase Social History Tobacco Use Types [...] on filedocumented in this encounter Care Teams Public Safety Telecommunicator Relationship Specialty Start Date End Date Yudelka Lopez APRN-CNP [address] [place] [address] PCP - General 01/20/23 documented as of this encounter
--- OUTSIDE RECORDS SUMMARY | 2025-03-09 13:10 | XMS_ITS | Clinical Summary ---
Author Organization [facility] Address [address] [place] [address] Care Team Providers Care Applied Statistician Name Role Phone Unavailable Primary Care Provider [...] (2 - Td or Tdap) 01/09/2026 Insurance [facility] [employer] MEDICAID [place]
--- OUTSIDE RECORDS SUMMARY | 2025-03-09 13:10 | XMS_ITS | Encounter Summary ---
Author Organization [facility] Address [address] [place] [address] Care Team Providers Care Television Presenter Name Role Phone Sarah Lopez DO Unavailable [phone] Encounter Details Date Type Department Care Team (Late st Contact Info) Description 02/16/2025 Abstract [facility] OB [address] [place] [address] Maggy Sanz LPN Social History Tobacco Use Types Packs/Day [...] [facility] BCP OB [address] [place] [address] Malcolm Pendleton DO [address], [place] [address] 11/19/2025 10:50 AM EST Office Visit [facility] [address] [place] [address] Kayleigh Chung, BETTY-ROTARY ROCK DRILLING MACHINE OPERATOR [address] [place] [address] documented as of this encounter Visit Diagnoses Not on filedocumented in this encounter Care Teams Television Presenter Relationship Specialty Start Date End Date Sarah Lopez DO [address] [place] [address] Referring Physician Emergency Medicine 02/18/23 documented as of this encounter
--- OUTSIDE RECORDS SUMMARY | 2025-03-09 13:10 | XMS_ITS | Encounter Summary ---
Author Organization [facility] Address [id number] [address] [place] [address] Care Team Providers Care Alodize Machine Operator Name Role Phone No Pcp, No Pcp Primary Care Provider Unavailabl e Encounter Details Date Type Department Care Team (Late st Contact Info) Description 02/26/2025 Telephone Maternal- Medicine at [facility] [address] [place] [address] Caroline Chavira RN Social History Tobacco Use [...] on filedocumented in this encounter Care Teams Alodize Machine Operator Relationship Specialty Start Date End Date No Pcp, [place] [address] PCP - General Family Medicine 02/21/24 documented as of this encounter
--- OUTSIDE RECORDS SUMMARY | 2025-03-09 13:10 | XMS_ITS | Encounter Summary ---
Author Organization [facility] Address [address] [place] [address] Care Team Providers Care Director Auto Name Role Phone Sarah Lopez DO Unavailable [phone] Encounter Details Date Type Department Care Team (Late st Contact Info) Description 02/26/2025 Clinisync Result Encounter [facility] External Department Unsolicited Maria Pendleton, DO [address], [facility]11 Social History Tobacco Use Types Packs/Day Years [...] [facility] BCP OB [address] [place] [address] Maria Pendleton, DO [address], [place] [address] 11/19/2025 10:50 AM EST Office Visit [facility] [address] [place] [address] Kayleigh Chung, CIRCULATION WORKER-PROBATE CLERK [address] [place] [address] documented as of this encounter Procedures Procedure Name Priority Date/Time Associated Diagnosis Comments US OB BPP W NON-STRESS 02/26/2025 1:13 PM EDT documented in this encounter Results * US OB BPP W NON-STRESS (02/26/2025 1:13 PM EDT) Anatomical Region Laterality Modality Other 02/26/2025 1:13 PM EDT Narrative 02/26/2025 1:34 [place] [address] Ultrasound Report Signed Patient: LISHA VALENTIN MR#: [id number] : 1990 Acct:[id number] Age/Sex: 34 / F ADM Date: 02/26/25 Loc: US Attending Dr: Maria Pendleton D.O. Ordering Physician: Maria Pendleton D.O. Date of Service: 02/26/25 Procedure(s): US OB BPP w non-stress Accession Number(s): [id number] cc: Maria Pendleton D.O.; Physician,Non-Staff M.D. The [address] [address] Patient Name: LISHA VALENTIN MRN: [id number] date: 1990 Sex: F Assigned Patient Location: US Current Patient Location: ED.MAIN Accession/Order Number: [id number] Exam Date: 02/26/2025 13:13 Report Date: 02/26/2025 13:13 At the request of: MARIA PENDLETON DO Procedure: US OB BPP w non-stress Biophysical profile. Reason for exam: LGA. COMPARISON: BPP 02/19/2025. TECHNIQUE: Transabdominal imaging of the gravid uterus was obtained. FINDINGS: Integrated Logistics Operations Manager reports a BPP of 8 out of 8. VIDA is normal at 16.4 cm. heart rate 135 bpm. US/US OB BPP w non-stress IMPRESSION: BPP 8 out of 8. Impression dictated by: Leroy Mancera Jr., D.O. 02/26/2025 1:13 PM Dictation Location: [place] [address] Electronically authenticated by: [id number] Y Date: 02/26/2025 13:13 Dictated By: Leroy Mancera M.D. Signed By: 02/26/25 1339 DD/ 1313 TD/TT: Chemical Reclamation Equipment Operator: Procedure Note Radiology, Radiologist, MD - 02/26/2025 [place] [address] Ultrasound Report Signed Patient: LISHA VALENTIN GMR#: [id number] : 1990Acct:[id number] Age/Sex: 34 / FADM Date: 02/26/25 Loc: US Attending Dr: Maria Pendleton D.O. Ordering Physician: Maria Pendleton D.O. Date of Service: 02/26/25 Procedure(s): US OB BPP w non-stress Accession Number(s): [id number] cc: Maria Pendleton D.O.; Physician,Non-Staff [place]acey [place] [id number] Patient Name: LISHA VALENTIN MRN: [id number] date: 1990 Sex: F Assigned Patient Location: US Current Patient Location: ED.MAIN Accession/Order Number: [id number] Exam Date: 02/26/2025 13:13 Report Date: 02/26/2025 13:13 At the request of: MARIA PENDLETON DO Procedure: US OB BPP w non-stress Biophysical profile. Reason for exam: LGA. COMPARISON: BPP 02/19/2025. TECHNIQUE: Transabdominal imaging of the gravid uterus was obtained. FINDINGS: Integrated Logistics Operations Manager reports a BPP of 8 out of 8. VIDA is normal at 16.4cm. heart rate 135 bpm. US/US OB BPP w non-stress IMPRESSION: BPP 8 out of 8. Impression dictated by: Leroy Mancera Jr., D.O. 02/26/2025 1:13 PM Dictation Location: [place] [address] Electronically authenticated by: [id number] Y Date: 3:13 Dictated By: Leroy Mancera M.D. Signed By:02/26/25 1334 DD/ 1313 TD/TT: Chemical Reclamation Equipment Operator: us Maria Pendleton DO [facility] Final Result documented in this encounter Visit Diagnoses Not on filedocumented in this encounter Care Teams Director Auto Relationship Specialty Start Date End Date Sarah Lopez DO [address] [place] [address] Referring Physician Emergency Medicine 02/18/23 documented as of this encounter
--- OUTSIDE RECORDS SUMMARY | 2025-03-09 13:10 | XMS_ITS | Encounter Summary ---
Author Organization [facility] Address [address] [place] [address] Care Team Providers Care Tamping Machine Operator Road Forms Name Role Phone Sarah Lopez DO Unavailable [phone] Encounter Details Date Type Department Care Team (Late st Contact Info) Description 03/05/2025 Clinisync Result Encounter [facility] External Department Unsolicited Maria Pendleton, DO [address], [facility] Social History Tobacco Use Types Packs/Day Years [...] [facility] [place] [address] [place] [id number] Maria Pendleton, DO [address], [place] [id number] 11/19/2025 10:50 AM EST Office Visit [facility] [address] [place] [address] Kayleigh Chung, [employer] MACHINE OPERATOR-ECONOMICS PROFESSOR [address] [place] [address] documented as of this encounter Procedures Procedure Name Priority Date/Time Associated Diagnosis Comments US OB BPP W NON-STRESS 03/05/2025 12:03 PM EDT documented in this encounter Results * US OB BPP W NON-STRESS (03/05/2025 12:03 PM EDT) Anatomical Region Laterality Modality Other 03/05/2025 12:0 3 PM EDT Narrative 03/05/2025 12:05 [place] [address] Ultrasound Report Signed Patient: LISHA VALENTIN MR#: [id number] : 1990 Acct:[id number] Age/Sex: 34 / F ADM Date: 03/05/25 Loc: [facility] 254-[address]: Maria Pendleton D.O. Ordering Physician: Maria Pendleton D.O. Date of Service: 03/05/25 Procedure(s): US OB BPP w non-stress Accession Number(s): [id number] cc: Maria Pendleton D.O.; Physician,Non-Staff M.DJorge The [address] [address] Patient Name: LISHA VALENTIN MRN: [id number] date: 1990 Sex: F Assigned Patient Location: [facility] Current Patient Location: [facility] Accession/Order Number: [id number] Exam Date: 03/05/2025 12:01 Report Date: 03/05/2025 12:03 At the request of: MARIA PENDLETON DO Procedure: US OB BPP w non-stress BIOPHYSICAL PROFILE: CLINICAL INFORMATION: History of pre-eclampsia in prior O09.299 COMPARISON: 02/26/2025 There is a single live intrauterine gestation in cephalic presentation. The reported gestational age is 35 weeks 4 days. The heart rate measures 139 beats per minute. FINDINGS: TONE: 1 or [...] greater than 2 cm [Y] 2/2 VIDA: 18.1 cm. This is in upper normal range. Total score: 8/8 US/US OB BPP w non-stress IMPRESSION: NORMAL BIOPHYSICAL PROFILE . Impression dictated by: Michell Miller M.D. 03/05/2025 12:03 PM Dictation Location: [place] [address] Electronically authenticated by: [id number] Y Date: 03/05/2025 12:03 Dictated By: Michell Miller M.D. Signed By: 03/05/25 1205 DD/ 1203 TD/TT: Fourdrinier Wire Weaver: Procedure Note Radiology, Radiologist, - 03/05/2025 [place] [address] Ultrasound Report Signed Patient: LISHA VALENTIN GMR#: [id number] : 1990Acct:[id number] Age/Sex: 34 / FADM Date: 03/05/25 Loc: [facility] 254-[address]: Maria Penldeton D.O. Ordering Physician: Maria Pendleton D.O. Date of Service: 03/05/25 Procedure(s): US OB BPP w non-stress Accession Number(s): [id number] cc: Maria Pendleton D.O.; Physician,Non-Staff Kacey [place] [id number] Patient Name: LISHA VALENTIN MRN: [facility]:[id number] date: 1990 Sex: F Assigned Patient Location: [facility] Current Patient Location: [facility] Accession/Order Number: [id number] Exam Date: 03/05/2025 12:01 Report Date: 03/05/2025 12:03 At the request of: MARIA PENDLETON DO Procedure: US OB BPP w non-stress BIOPHYSICAL PROFILE: CLINICAL INFORMATION: History of pre-eclampsia in prior O09.299 COMPARISON: 02/26/2025 There is a single live intrauterine gestation in cephalic presentation.The reported gestational age is 35 weeks 4 days. The heart ratemeasures 139 beats per minute. FINDINGS: TONE: 1 or [...] greater than 2 cm [Y] 2/2 VIDA: 18.1 cm. This is in upper normal range. Total score: 8/8 US/US OB BPP w non-stress IMPRESSION: NORMAL BIOPHYSICAL PROFILE . Impression dictated by: Michell Miller M.D. 03/05/2025 12:03 PM Dictation Location: [place] [address] Electronically authenticated by: [id number] Y Date: 2:03 Dictated By: Michell Miller M.D. Signed By:03/05/25 1205 DD/ 1203 TD/TT: Fourdrinier Wire Weaver: us Maria Pendleton DO [facility] Final Result documented in this encounter Visit Diagnoses Not on filedocumented in this encounter Care Teams Tamping Machine Operator Road Forms Relationship Specialty Start Date End Date Sarah Lopez DO [address] [place] [address] Referring Physician Emergency Medicine 02/18/23 documented as of this encounter
--- OUTSIDE RECORDS SUMMARY | 2025-03-09 13:10 | XMS_ITS | Encounter Summary ---
Author Organization [facility] Address [facility] [id number] [address] [place] [address] Care Team Providers Care Ergonomist Name Role Phone No Pcp, No Pcp Primary Care Provider Unavailabl e Encounter Details Date Type Department Care Team (Late st Contact Info) Description 12/09/2024 Orders Only Maternal- Medicine at [facility] [address] [place] [phone] Natalie Díaz, RN Choroid plexus cyst of [...] MD LAB BLOOD ORDERABLES Final Re sult [employer] documented in this encounter Visit Diagnoses Diagnosis Choroid plexus cyst of fetus affecting care of mother, antepartum, fetus 1 documented in this encounter Care Teams Ergonomist Relationship Specialty Start Date End Date No Pcp, [place] [address] PCP - General Family Medicine 02/21/24 documented as of this encounter
--- OUTSIDE RECORDS SUMMARY | 2025-03-09 13:10 | XMS_ITS | Patient Health Record ---
Author Organization [facility] Address [address] [place] [address] Care Team Providers Care Compounder Name Role Phone Yudelka Lopez Primary Care Provider [phone] Dr. Leroy Salazar Unavailable [phone] Allergies Allergen (clinical drug ingredient) Drug/Non Drug Allergy documented on EMR Reaction Allergy Type Onset Date Status labetalol Labetalol HCl shortness of breath Drug Allergy Active Results Component Value Reference Range Notes Dipstick and Microscopic Reviewed date:07/14/2024 05:15:14 PM Interpretation: Performing Lab:, [facility], [address], [facility] Notes/Report: Name Collection Type:: Clean-Voided Midstream Color,Urine Yellow Yellow Appearance,Urine Clear Clear Specificy [place],Urine 1.030 1.001-1.030 pH,Urine 6.0 5.0-9.0 Leukocyte Esterase,Urine Negative Negative Nitrite,Urine Negative Negative Protein,Urine 20 Negative mg/dL Glucose,Urine (UA) Normal Normal Ketones,Urine 2+ Negative Urobilinogen,Urine 3 Normal mg/dL Bilirubin,Urine Negative Negative Occult Blood,Urine 1+ Negative RBC,Urine 20-49 0-4 WBC,Urine 5-9 0-4 Squamous Epithelial Cell,Urine 5-9 0-2 Bacteria,Urine Rare None Seen Hyaline Casts,Urine None 0-8 Mucus,Urine 2+ HCG,Urine Reviewed date:07/14/2024 05:15:14 PM Interpretation: Performing Lab: Notes/Report: Name Collection Type:: Clean-Voided Midstream HCG Qualitative,Urine Negative BioFire Detected (Not yet re viewed by provider) Interpretation: Performing Lab:, [facility], [address] [place] [address]., [facility] Notes/Report: BioFire Detected Detected Not Detecte This is a duplicate RP2.1 COVID (PCR) result to be used for statistical tracking purpose only. Dipstick and Microscopic (No t yet reviewed by provider) Interpretation: Performing Lab:, [facility], [address] [place] [address]., [facility] Notes/Report: Name Collection Type:: Clean-Voided Midstream Color,Urine Light-Yellow Yellow Appearance,Urine Clear Clear Specificy [place],Urine 1.011 1.001-1.030 pH,Urine 6.5 5.0-9.0 Leukocyte Esterase,Urine [...] yet reviewed by provider) Interpretation: Performing Lab:, [facility], [address] [place] [address]., [facility] Notes/Report: Adenovirus Not detected Bordetella parapertussis Not [...] reviewe d by provider) Interpretation: Performing Lab:, [facility], [address] Notes/Report: Streptococcus pyogenes Ag [Presence] in Throat by Rapid immunoassay Negative for Group A Strep Antigen Note 1 ---- NOTE 2 Results are those of a screening test. NOTE 3 If clinically indica delmer please order a culture. NOTE 4 ---- NOTE 5 Reference range = Negative Complete Blood Count Auto Di ff (Not yet reviewed by provider) Interpretation: Performing Lab:, [facility], [address] Notes/Report: For adults [...] et reviewed by provider) Interpretation: Performing Lab:, [facility], [address] [place] Notes/Report: Glucose 73 70-100 mg/dL Random Glucose [...] 6.0-15.0 meq/L Creatinine Clr Calc Pharmacy 164.96 CT abdomen pelvis w con Reviewed date:07/14/2024 04:15:57 PM Interpretation: Performing Lab: Notes/Report: [facility] Main [place] [address] [place], [place] [id number] CT Scan Report Signed Patient: Lisha Fonseca MR#: [id number] : 1990 Acct:[id number] Age/Sex: 34 / F ADM Date: 07/14/24 Loc: ER Room: Type: [facility] ER Attending Dr: Copies to: DO [...] Mancera Jr., D.O.07/14/2024 2:43 PM Dictation Location: [place] [address] Transcribed By: PWS 07/14/24 1443 Dictated By: Leroy Mancera Jr, DO 07/14/24 1438 Signed By: <Electronically signed by Leroy Mancera Jr, DO in [place]> 07/14/24 1443 COVID-19 / Flu A/B / RSV PCR Reviewed date:07/14/2024 05:15:14 PM Interpretation: Performing Lab:, [facility], [address], [place] Notes/Report: COVID-19 Cepheid Result Negative for KELLY [...] for use by Cepheid Disclaimer authorized laborator [facility]; this test has been Cepheid Disclaimer authorized [...] is terminated or Cepheid Disclaimer revoked sooner. COVID-19 PCR Reviewed date:07/14/2024 05:15:14 PM Interpretation: Performing Lab:, [facility], [address] [place] Notes/Report: This is a duplicate Cepheid Xpert Xpress CoV-2/Flu/RSV Plus RNA by RT-PCR result to be used for statistical tracking purpose only. Cepheid COVID PCR Negative Negative Negative Complete Blood Count Auto Di ff Reviewed date:07/14/2024 05:15:14 PM Interpretation: Performing Lab:, [facility], [address], [place] Notes/Report: For adults in ED, [...] Reviewed date:07/14/2024 05:15:14 PM Interpretation: Performing Lab:, [facility], [address] Notes/Report: Total Protein 7.2 [...] 11.1 6.0-15.0 Creatinine Clr Calc Pharmacy 107.14 Ethyl Alcohol Profile Reviewed date:08/07/2024 07:53:16 AM Interpretation: Performing Lab:, [facility], [address] Notes/Report: Ethanol <10 Percent Ethanol TNP Complete Blood Count Auto Di ff Reviewed date:08/07/2024 07:53:16 AM Interpretation: Performing Lab:, [facility], [place] Notes/Report: White Blood Count 7.9 3.8-11.6 10*3/uL [...] Reviewed date:08/07/2024 07:53:16 AM Interpretation: Performing Lab:, [facility], [place] Notes/Report: Approximate Approximate hCG Gestational Age Range (mIU/ml) (weeks) 0.2-1 5-50 1-2 50-500 2-3 100-5,000 3-4 500-10,000 4-5 1,000-50,000 5-6 10,000-100,000 6-8 15,000-200,000 8-12 10,000-100,000 HCG,Quantitative 27018.00 Comprehensive Metabolic Amira rose Reviewed date:08/07/2024 07:53:16 AM Interpretation: Performing Lab:, [facility], [address] [place] Notes/Report: Glucose 98 70-100 mg/dL Random Glucose [...] 6.0-15.0 meq/L Creatinine Clr Calc Pharmacy 119.09 Reason For Referral No Information Social History [...] down, depressed, or hopeless More than h [facility] the days Trouble falling or staying a [...] 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 Stress is when someone feels tense, nervous, anxious, or cant sleep at night because their mind is troubled Not at all In the past year have you sp ent more than 2 nights in a row in a usp, snf, longterm center, or juvenile correctional facility? No Are [...] Problem Status W/U Status Risk Notes Problem 29046373 Hyperthyroidism (E05.90) Active confirmed Problem 542512901 Thyroid nodule (E04.1) Active confirmed Problem 15653124 Iron deficiency anemia, unspecified iron deficiency anemia type (D50.9) Active confirmed Problem 2772886 Migraine with au ra and without status migrainosus, not intractable (G43.109) Active confirmed Problem 924049458 Endometriosis (N80.9) Active confirmed Problem 493102319 Anxiety disorder , unspecified (F41.9) Active confirmed Encounters Encounter Location Date Provider Diagnosis [facility] [address] [facility] [address] 12/19/2024 Leroy Salazar Encounter for dental examination and cleaning with abnormal findings Z01.21 ; Other dental procedure status Z98.818 ; Cracked tooth K03.81 ; Necrosis of pulp K04.1 and Dental caries on pit and fissure surface penetrating into dentin K02.52 [facility] [address] [place] [address] 07/18/2024 Yudelka [facility] [address] [place] [address] 08/13/2024 Yudelka Lopez Assessments Encounter Date Diagnosis [...] Insured Coverage Start Date Coverage End Date [facility] [address] [place] [address] [id number] LISHA FONSECA Other 1 [employer] [place] Medicaid [address] [place] [address] [id number] LISHA FONSECA Self - patient is the insured 3 3 Wrap [employer] [facility] [address] [place] [address] [id number] LISHA FONSECA Self - patient is the insured 3 3 Wrap [employer] [place] [address] [place] [address] [id number] LISHA FONSECA Self - patient is the insured 3 zD[address]AL DQ [facility] CHP [place]-termed 22 [address] [place] [address] [id number] LISHA FONSECA Self - patient is the insured 2 zDental MEDICAID [facility] after [facility] CHP-terme d 22 [address] [place] [phone] [id number] LISHA FONSECA Self - patient is the insured 2 DENTAL HUMANA [address] [address] [place] [address] [id number] LISHA FONSECA 5 Dental Wrap [facility] Hum[employer] [address] [place] [address] [id number] LISHA FONSECA Self - patient is the insured 5 Dental [employer] DQ [address] [address] [place] [address] [id number] LISHA FONSECA Self - patient is the insured 5 Medical (General) History Medical History History ICD Code hypertension anemia Covid 19 Surgical History Surgery Date(Month/Year) section-x2 Endometrial Tumor Resection 04/03/22 Hospitalization History Reason Date(Month/Year) see surgical Child x2
--- OUTSIDE RECORDS SUMMARY | 2025-03-09 13:10 | XMS_ITS | Encounter Summary ---
Author Organization [facility] Address [facility] [id number] [address] [place] [address] Care Team Providers Care Charging Crane Operator Name Role Phone No Pcp, No Pcp Primary Care Provider Unavailabl e Encounter Details Date Type Department Care Team (Late st Contact Info) Description 12/01/2024 Orders Only Maternal- Medicine at [facility] [address] [place] [phone] Natalie Díaz, RN Choroid plexus cyst of [...] 1 documented in this encounter Care Teams Charging Crane Operator Relationship Specialty Start Date End Date No Pcp, [place] [address] PCP - General Family Medicine 02/21/24 documented as of this encounter
--- OUTSIDE RECORDS SUMMARY | 2025-03-09 13:10 | XMS_ITS | Clinical Summary ---
Author Organization [facility] Address [address] [place] [address] Phone Care Team Providers Care Cake Knocker Name Role Phone Yudelka Lopez APRN-SHIRT MARKER Primary Care Provider + Social History Tobacco [...] this topic Medical Devices Implanted Type Area Thumb Sewer Device Identifier Shelf Expiration Date Model / Serial / Lot Mesh, Softmesh 3 X 6, Flat Case [id number] Implanted:Qty: 1 on 04/03/2022 by Sly Crocker MD MPH Mesh Abdomen DAVOL 05/14/2024 [id number] / / [id number] Description:Converted from [facility] Care Acute. Please see archived information for full log information. Care Teams Cake Knocker Relationship Specialty Start Date End Date Yudelka Lopez, MIXER HELPER-SHIRT MARKER [address] [place] [address] PCP - General 01/20/23
--- OUTSIDE RECORDS SUMMARY | 2025-03-09 13:11 | XMS_ITS | Encounter Summary ---
Author Organization [facility] Address [address] [email or web address] [address] Care Team Providers Care Airport Guide Name Role Phone Sarah Lopez DO Unavailable [phone] Encounter Details Date Type Department Care Team (Late st Contact Info) Description 11/24/2024 Abstract [facility] BCP OB [address] [place] [address] Malcolm Pendleton DO [facility] [address], [facility]11 Social History [...] [place] [address] Malcolm Pendleton DO [facility] [place] [address] 11/19/2025 10:50 AM EST Office Visit [facility] [address] [place] [address] Kayleigh Chung APRN-MANAGER OF CARE [address] [place] [address] documented as of this encounter Visit Diagnoses Not on filedocumented in this encounter Care Teams Airport Guide Relationship Specialty Start Date End Date Sarah Lopez DO [address] [place] [address] Referring Physician Emergency Medicine 02/18/23 documented as of this encounter
--- OUTSIDE RECORDS SUMMARY | 2025-03-09 13:11 | XMS_ITS | Encounter Summary ---
Author Organization [facility] Address [address] [place] [address] Care Team Providers Care Loadmaster Name Role Phone Sarah Lopez DO Unavailable [phone] Encounter Details Date Type Department Care Team (Late st Contact Info) Description 12/17/2024 Abstract [facility] BCP OB [address] [place] [address] Malcolm Pendleton DO [facility] [address], [facility]11 [...] [place] [address] Malcolm Pendleton DO [facility] [place] [address] 11/19/2025 10:50 AM EST Office Visit [facility] [address] [place] [address] Kayleigh Chung APRN-RAT EXTERMINATOR [address] [place] [address] documented as of this encounter Visit Diagnoses Not on filedocumented in this encounter Care Teams Loadmaster Relationship Specialty Start Date End Date Sarah Lopez DO [address] [place] [address] Referring Physician Emergency Medicine 02/18/23 documented as of this encounter
--- OUTSIDE RECORDS SUMMARY | 2025-03-09 13:11 | XMS_ITS | Encounter Summary ---
Author Organization [facility] Address [address] [address] Care Team Providers Care Key Account Manager Name Role Phone Sarah Lopez DO Unavailable Encounter Details Date Type Department Care Team (Late st Contact Info) Description 11/21/2024 External Result Encounter [facility] BCP OB [address] [place] [address] Maria Pendleton DO [facility] [address], [place] [address] Social History Tobacco Use Types Packs/Day Years [...] BCP OB [address] [place] [address] Maria Pendleton DO [facility] [place] [address] 11/19/2025 10:50 AM EST Office Visit [facility] [address] [place] [address] Kayleigh Chung, MEDICAL BILLING CODER-WORKDAY FINANCIALS CONSULTANT [address] [place] [address] documented as of this encounter Procedures Procedure Name Priority Date/Time Associated Diagnosis Comments US OB 14+ WEEKS ANATOMY SCAN 11/21/2024 3:40 PM EST documented in this encounter Results * US OB 14+ weeks anatomy scan (11/21/2024 3:40 PM EST) Anatomical Region Laterality Modality Body Ultrasound 11/21/2024 3:40 PM EST Narrative 11/21/2024 3:40 PM EST THIS EXAM WAS PERFORMED AT [facility] NAME: MARIAN HUSAIN : 1990 SEX: F Accession Number: [id number] ORDERING PHYSICIAN: HENNY MONTGOMERY REFERRING PHYSICIAN: MARIA PENDLETON Coding ----- --------- Procedures 31427: Ultrasound, uterus, real time with image documentation, and maternal evaluation plus detailed anatomic examination, transabdominal approach;single or first gestation 70612: Transvaginal Ultrasound (OB) Indication ----- --------- Screening [...] 0 lb 13 oz EFW by Hadlock ([id number]-FL) Head / Face / Neck Biometry: Cephalic index 0.73 5% Nicolaides Forestry Biology Specialist 4.4 mm CM 4.2 mm 20% Nicolaides [...] Heart / Thorax RVOT view. LVOT view. 0-rasuli-dgvtbep view. Bicaval view. Extremities / Left hand. [...] Right choroid plexus cyst is identified. Per [facility] guidelines, isolated chorioid plexus cysts (CPCs) are a normal variant of no clinical importance with no indication for follow-up ultrasound imaging or evaluation in the setting of low risk cell free DNA screening. Double right renal artery identified. Recommendations ----- --------- Please see [facility] documentation from today. The patient is scheduled in four to six week(s) to complete anatomic survey. Subsequent follow up or other follow up as clinically determined by primary OB provider unless otherwise specified by [facility]. Results forwarded to ordering provider so they can follow up with the patient as necessary. The copy-to physician of this order is MARIA Brito The ordering physician of this order is HENNY Pineda Procedure Note Radiology, Radiologist, MD - 11/21/2024 THIS EXAM WAS PERFORMED AT [facility] NAME: MARIAN HUSAIN : 1990 SEX: F Accession Number: [id number] ORDERING PHYSICIAN: HENNY MONTGOMERY REFERRING PHYSICIAN: MARIA PENDLETON Coding ----- --------- Procedures 63332: Ultrasound, uterus, real time with imagedocumentation, and maternal evaluation plus detailed anatomic examination, transabdominalapproach;single or first gestation 69651: Transvaginal Ultrasound (OB) Indication ----- --------- Screening [...] 0 lb 13 oz EFW by Hadlock ([id number]) Head / Face / Neck Biometry: Cephalic index 0.73 5% Nicolaides Forestry Biology Specialist 4.4 mm CM 4.2 mm 20% Nicolaides [...] Heart / Thorax RVOT view. LVOT view. 2-wnypse-tpigdia view. Bicavalview. Extremities / Left hand. Skeleton [...] Right choroid plexus cyst is identified. Per [facility] guidelines, isolated chorioid plexus cysts (CPCs) are a normalvariant of no clinical importance with no indication for follow-up ultrasound imaging or evaluation in the setting of lowrisk cell free DNA screening. Double right renal artery identified. Recommendations ----- --------- Please see [facility] documentation from today. The patient is scheduled in four to six week(s) to complete anatomicsurvey. Subsequent follow up or other follow up as clinically determined byprimary OB provider unless otherwise specified by [facility]. Results forwarded to ordering provider so they can follow up with thepatient as necessary. The copy-to physician of this order is MARIA Brito The ordering physician of this order is HENNY Pineda us Maria Pendleton DO IMG OB US PROCEDURES Final Resul t documented in this encounter Visit Diagnoses Not on filedocumented in this encounter Care Teams Key Account Manager Relationship Specialty Start Date End Date Sarah Lopez DO [address] [place] [address] Referring Physician Emergency Medicine 02/18/23 documented as of this encounter
--- OUTSIDE RECORDS SUMMARY | 2025-03-09 13:11 | XMS_ITS | Encounter Summary ---
Author Organization [facility] Address [address] [place] [address] Care Team Providers Care Playground Official Name Role Phone Sarah Lopez DO Unavailable [phone] Encounter Details Date Type Department Care Team (Late Contact Info) Description 11/10/2024 Abstract [facility] ONC [address] [place] [address] Ingrid Esquivel NP Social History Tobacco Use [...] EDT Routine [facility] BCP OB [address] [place] [id number] Malcolm Pendleton DO [address] [place] [address] 11/19/2025 10:50 AM EST Office Visit [facility] [address] [place] [address] Kayleigh Chung, FARMWORKER EGG PRODUCING FARM-APPLICATION SPEC [address] [place] [address] documented as of this encounter Visit Diagnoses Not on filedocumented in this encounter Care Teams Playground Official Relationship Specialty Start Date End Date Sarah Lopez DO [address] [place] [address] Referring Physician Emergency Medicine 02/18/23 documented as of this encounter
--- OUTSIDE RECORDS SUMMARY | 2025-03-09 13:11 | XMS_ITS | Encounter Summary ---
Author Organization [facility] Address [address] [place] [address] Care Team Providers Care Improvement Director Name Role Phone Sarah Lopez DO Unavailable [phone] Encounter Details Date Type Department Care Team (Late st Contact Info) Description 01/08/2025 Results Follow-Up [facility] B[facility] OB [address] [place] [address] Suze Lopez LPN [address] [place] [id number] Social History Tobacco Use Types Packs/Day Years [...] AM EDT Routine [facility] BCP OB [address] [facility] [place] [address] Malcolm Pendleton DO [address] [place] [address] 11/19/2025 10:50 AM EST Office Visit [facility] [address] [place] [address] Kayleigh Chung, SENIOR RISK MANAGER-ELECTRICAL PROJECT MANAGER [address] [facility] [address] [place] [address] documented as of this encounter Visit Diagnoses Not on filedocumented in this encounter Care Teams Improvement Director Relationship Specialty Start Date End Date Sarah Lopez DO [address] [place] [address] Referring Physician Emergency Medicine 02/18/23 documented as of this encounter
--- OUTSIDE RECORDS SUMMARY | 2025-03-09 13:11 | XMS_ITS | Encounter Summary ---
Author Organization [facility] Address [address] [place] [address] Care Team Providers Care Knitter Mechanic Name Role Phone Sarah Lopez DO Unavailable Encounter Details Date Type Department Care Team (Late st Contact Info) Description 12/29/2024 Abstract [facility] BCP OB [address] [place] [address] Malcolm Pendleton DO [facility] [address], [id number] Social History Tobacco Use Types Packs/Day Years [...] BCP OB [address] [place] [address] Malcolm Pendleton DO [facility] [place] [address] 11/19/2025 10:50 AM EST Office Visit [facility] [address] [place] [address] Kayleigh Chung APRN-PERSONAL BANKING OFFICER [address] [place] [address] documented as of this encounter Visit Diagnoses Not on filedocumented in this encounter Care Teams Knitter Mechanic Relationship Specialty Start Date End Date Sarah Lopez DO [address] [place] [address] Referring Physician Emergency Medicine 02/18/23 documented as of this encounter
--- OUTSIDE RECORDS SUMMARY | 2025-03-09 13:11 | XMS_ITS | Encounter Summary ---
Author Organization [facility] Address [address] [place] [address] Care Team Providers Care Heel Seat Pounder Name Role Phone Sarah Lopez DO Unavailable [phone] Encounter Details Date Type Department Care Team (Late st Contact Info) Description 11/21/2024 Abstract [facility] BCP OB [address] [place] [address] Malcoml Pendleton DO [facility] [address] [place], [facility]11 Social History Tobacco Use Types [...] [place] [address] Malcolm Pendleton DO [facility] [place] [address] 11/19/2025 10:50 AM EST Office Visit [facility] [address] [place] [address] Kayleigh Chung APRN-STOKER MECHANIC [address] [place] [address] documented as of this encounter Visit Diagnoses Not on filedocumented in this encounter Care Teams Heel Seat Pounder Relationship Specialty Start Date End Date Sarah Lopez DO [address] [place] [address] Referring Physician Emergency Medicine 02/18/23 documented as of this encounter
--- OUTSIDE RECORDS SUMMARY | 2025-03-09 13:11 | XMS_ITS | Encounter Summary ---
Author Organization [facility] Address [address] [place] [address] Care Team Providers Care Esthetician Name Role Phone Sarah Lopez DO Unavailable [phone] Encounter Details Date Type Department Care Team (Late st Contact Info) Description 01/20/2025 Abstract [facility] BCP OB [address] [place] [address] Malcolm Pendleton DO [facility] [address], [facility]11 Social History Tobacco Use Types [...] [place] [address] Malcolm Pendleton DO [facility] [place] [address] 11/19/2025 10:50 AM EST Office Visit [facility] [address] [place] [address] Kayleigh Chung APRN-PETROLEUM ENGINEERING PROFESSOR [address] [place] [address] documented as of this encounter Visit Diagnoses Not on filedocumented in this encounter Care Teams Esthetician Relationship Specialty Start Date End Date Sarah Lopez DO [address] [place] [address] Referring Physician Emergency Medicine 02/18/23 documented as of this encounter
--- OUTSIDE RECORDS SUMMARY | 2025-03-09 13:11 | XMS_ITS | Encounter Summary ---
Author Organization [facility] Address [address] [place] [address] Care Team Providers Care House Steward/Stewardess Name Role Phone Sarah Lopez DO Unavailable [phone] Encounter Details Date Type Department Care Team (Late st Contact Info) Description 02/19/2024 Clinisync Result Encounter [facility] External Department Unsolicited Maria Pendleton, DO [address] [place] [address] Social History Tobacco Use Types Packs/Day Years [...] [facility] BCP OB [address] [place] [address] Maria Pendleton, [address] [place] [address] 11/19/2025 10:50 AM EST Office Visit [facility] [address] [place] [address] Kayleigh Chung, SCHEDULER MAINTENANCE-MUSICAL INSTRUMENT MAKER OR REPAIRER [address] [place] [address] documented as of this encounter Procedures Procedure Name Priority Date/Time Associated Diagnosis Comments US PELVIS TRANSVAGINAL 02/19/2024 12:27 PM EDT documented in this encounter Results * US PELVIS TRANSVAGINAL (02/19/2024 12:27 PM EDT) Anatomical Region Laterality Modality Other 02/19/2024 12:2 7 PM EDT Narrative 02/19/2024 12:29 PM EDT [address] [address] Ultrasound Report Signed Patient: LISHA VALENTIN MR#: [id number] : 1990 Acct:[id number] Age/Sex: 33 / F ADM Date: 02/19/24 Loc: [facility] Attending Dr: Maria Pendleton D.O. Ordering Physician: Maria Pendleton D.O. Date of Service: 02/19/24 Procedure(s): US pelvis transvaginal Accession Number(s): [id number] cc: Maria Pendleton D.O.; Physician,Non-Staff M.D. The [address] [address] Patient Name: LISHA VALENTIN MRN: [id number] date: 1990 Sex: F Assigned Patient Location: [facility] Current Patient Location: [facility] Accession/Order Number: [id number] Exam Date: 02/19/2024 11:18 Report Date: 02/19/2024 [...] Signed By: 02/19/24 1229 DD/ 1227 TD/TT: Allocation Analyst: Procedure Note Radiology, Radiologist, MD - 02/19/2024 [place] [address] Ultrasound Report Signed Patient: LISHA VALENTIN GMR#: [id number] : 1990Acct:[id number] Age/Sex: Date: 02/19/24 Loc: [facility] Attending Dr: Maria Pendleton D.O. Ordering Physician: Maria Pendleton D.O. Date of Service: 02/19/24 Procedure(s): US pelvis transvaginal Accession Number(s): [id number] cc: Maria Pendleton D.O.; Physician,Non-Staff MKarlee [address] [address] Patient Name: LISHA VALENTIN MRN: [id number] date: 1990 Sex: F Assigned Patient Location: [facility] Current Patient Location: [facility] Accession/Order Number: [id number] Exam Date: 02/19/2024 11:18 Report Date: 02/19/2024 [...] M.D. Signed By:02/19/24 1229 DD/ 1227 TD/TT: Allocation Analyst: us Maria Pendleton DO [facility] Final Result documented in this encounter Visit Diagnoses Not on filedocumented in this encounter Care Teams House Steward/Stewardess Relationship Specialty Start Date End Date Sarah Lopez DO [address] [place] [address] Referring Physician Emergency Medicine 02/18/23 documented as of this encounter
--- OUTSIDE RECORDS SUMMARY | 2025-03-09 13:11 | XMS_ITS | Encounter Summary ---
Author Organization [facility] Address [address] [place] [address] Care Team Providers Care Weight Checker Name Role Phone Sarah Lopez DO Unavailable [phone] Encounter Details Date Type Department Care Team (Late st Contact Info) Description 01/09/2025 Results Follow-Up [facility] BCP OB [address] [address] Suze Lopez LPN [address] [place] [id number] Social History Tobacco Use Types Packs/Day Years [...] AM EDT Routine [facility] BCP OB [address] [facility] [place] [address] Malcolm Pendleton, DO [address] [facility] [place] [address] 11/19/2025 10:50 AM EST Office Visit [facility] [address] [place] [address] Kayleigh Chung, LINE REPAIRER TOWER-USER ACCEPTANCE TESTER [address] [place] [address] documented as of this encounter Visit Diagnoses Not on filedocumented in this encounter Care Teams Weight Checker Relationship Specialty Start Date End Date Sarah Lopez DO [address] [place] [address] Referring Physician Emergency Medicine 02/18/23 documented as of this encounter
--- OUTSIDE RECORDS SUMMARY | 2025-03-09 13:11 | XMS_ITS | Encounter Summary ---
Author Organization [facility] Address [address] [place] [address] Care Team Providers Care Inspector Tubes Name Role Phone Sarah Lopez DO Unavailable [phone] Encounter Details Date Type Department Care Team (Late st Contact Info) Description 08/27/2024 Clinisync Result Encounter [facility] External Department Unsolicited Maria Pendleton, DO [address] [place], [facility]11 Social History Tobacco Use Types Packs/Day [...] Routine [facility] BCP OB [address] [place] [address] Maria Pendleton, DO [address] [place], [place] [address] 11/19/2025 10:50 AM EST Office Visit [facility] [address] [place] [address] Sariahvishnu Kayleigh Rowan, FISHERIES DIRECTOR-OSCILLOGRAPH TECHNICIAN [address] [place] [address] documented as of this encounter Procedures Procedure Name Priority Date/Time Associated Diagnosis Comments US OB TRANSVAGINAL 08/27/2024 4: 27 AM EST documented in this encounter Results * US OB TRANSVAGINAL (08/27/2024 4:27 AM EST) Anatomical Region Laterality Modality Other 08/27/2024 4:27 AM EST Narrative 08/27/2024 4:30 [place] [address] Ultrasound Report Signed Patient: LISHA VALENTIN MR#: [id number] : 1990 Acct:[id number] Age/Sex: 34 / F ADM Date: 08/26/24 Loc: [facility] Attending Dr: Maria Pendleton D.O. Ordering Physician: Maria Pendleton D.O. Date of Service: 08/26/24 Procedure(s): US OB transvaginal Accession Number(s): [id number] cc: Maria Pendleton D.O.; Physician,Non-Staff M.DJorge The [address] [address] Patient Name: LISHA VALENTIN MRN: [id number] date: 1990 Sex: F Assigned Patient Location: [facility] Current Patient Location: Accession/Order Number: [id number] Exam Date: 08/26/2024 08:59 Report Date: 08/27/2024 [...] M.D. Signed By: 08/27/24429 DD/ 6 TD/TT: Fare Register Repairer: Procedure Note Radiology, Radiologist, MD - 08/27/2024 [place] [address] Ultrasound Report Signed Patient: LISHA VALENTIN GMR#: [id number] : 1990Acct:[id number] Age/Sex: 34 / FADM Date: 08/26/24 Loc: [facility] Attending Dr: Maria Pendleton D.O. Ordering Physician: Maria Pendleton D.O. Date of Service: 08/26/24 Procedure(s): US OB transvaginal Accession Number(s): [id number] cc: Maria Pendleton D.O.; Physician,Non-Staff M.DJorge The [place] [address] Patient Name: LISHA VALENTIN MRN: [id number] date: 1990 Sex: F Assigned Patient Location: [facility] Current Patient Location: Accession/Order Number: [id number] Exam Date: 08/26/2024 08:59 Report Date: 08/27/2024 [...] Miguel M.D. Signed By:08/27/24429 DD/ 6 TD/TT: Fare Register Repairer: us Maria Helder DO [facility] Final Result documented in this encounter Visit Diagnoses Not on filedocumented in this encounter Care Teams Inspector Tubes Relationship Specialty Start Date End Date Sarah Lopez DO [address] [place] [address] Referring Physician Emergency Medicine 02/18/23 documented as of this encounter
--- OUTSIDE RECORDS SUMMARY | 2025-03-09 13:11 | XMS_ITS | Encounter Summary ---
Author Organization [facility] Address [address] [place] [address] Care Team Providers Care General Labor Name Role Phone Sarah Lopez DO Unavailable [phone] Encounter Details Date Type Department Care Team (Late st Contact Info) Description 02/20/2025 Telephone [facility] BCP OB [address] [place] [address] Mary Cruz MA Social History Tobacco Use [...] 02/20/2025 12:03 PM EDT OB: [id number] P# [phone] Pt called in and seen at ER [...] Routine [facility] BCP OB [address] [place] [address] Malcolm Pendleton DO [address] [facility] [place] [address] 11/19/2025 10:50 AM EST Office Visit [facility] [address] [place] [address] Kayleigh Chung, TRANSITIONS MANAGER-DRILL PRESS OPERATOR NUMERICAL CONTROL [address] [place] [address] documented as of this encounter Visit Diagnoses Not on filedocumented in this encounter Care Teams General Labor Relationship Specialty Start Date End Date Sarah Lopez DO [address] [place] [address] Referring Physician Emergency Medicine 02/18/23 documented as of this encounter
--- OUTSIDE RECORDS SUMMARY | 2025-03-09 13:11 | XMS_ITS | Encounter Summary ---
Author Organization [facility] Address [address] [place] [address] Care Team Providers Care Microfilming Document Preparer Name Role Phone Sarah Lopez DO Unavailable [phone] Encounter Details Date Type Department Care Team (Late st Contact Info) Description 01/14/2025 Abstract [facility] BCP OB [address] [place] [address] Malcolm Pendleton DO [facility] [address], [facility]11 Social History Tobacco Use Types Packs/Day Years [...] Routine [facility] BCP OB [address] [place] [address] Malcolm Pendleton DO [facility] [place] [place] [address] 11/19/2025 10:50 AM EST Office Visit [facility] [address] [place] [address] Kayleigh Chung APRN-CARDIOVASCULAR RADIOLOGIC TECHNOLOGIST [address] [place] [address] documented as of this encounter Visit Diagnoses Not on filedocumented in this encounter Care Teams Microfilming Document Preparer Relationship Specialty Start Date End Date Sarah Lopez DO [address] [place] [address] Referring Physician Emergency Medicine 02/18/23 documented as of this encounter
--- OUTSIDE RECORDS SUMMARY | 2025-03-09 13:11 | XMS_ITS | Encounter Summary ---
Author Organization [facility] Address [address] [address] Care Team Providers Care Decontamination Worker Name Role Phone Sarah Lopez DO Unavailable [phone] Encounter Details Date Type Department Care Team (Late st Contact Info) Description 08/26/2024 Abstract [facility] BCP OB [address] [place] [address] Malcolm Pendleton DO [facility] [address], [facility] [...] BCP OB [address] [place] [address] Malcolm Pendleton DO [facility] [place] [address] 11/19/2025 10:50 AM EST Office Visit [facility] DER[facility] [address] [place] [address] Kayleigh Chung APRN-DIRECTOR INTEGRATED [address] [place] [address] documented as of this encounter Visit Diagnoses Not on filedocumented in this encounter Care Teams Decontamination Worker Relationship Specialty Start Date End Date Sarah Lopez DO [address] [place] [address] Referring Physician Emergency Medicine 02/18/23 documented as of this encounter
--- OUTSIDE RECORDS SUMMARY | 2025-03-09 13:11 | XMS_ITS | Clinical Summary ---
Author Organization [facility] Healthcare Address [address] [place] [address] Care Team Providers Care Packager Head Name Role Phone Sarah Lopez DO Unavailable [phone] Allergies Active Allergy Reactions Criticality Noted Date [...] or vomiting 30 tablet 2 5 025 Discontin ued(Reord er) Active Problems Problem Noted Date Diagnosed Date 10 weeks gestation of ([facility]) 2023 First trimester ([facility]) 09/11/2024 Estimated Date of Delivery Comme nts Yes 04/05/2025 Based on Ultraso und Encounters Date Type Department Care Team Description 03/05/2025 Clinisync Result Encounter NOMS External Department Unsolicited Maria Pendleton, DO 02/26/2025 Clinisync Result Encounter NOMS External Department Unsolicited Maria Pendleton, DO 02/24/2025 11:40 AM EDT Routine [facility] [address] [place] [address] Maria Pendleton, DO 34 weeks gestation of ([facility]); Third trimester ([facility]) 02/24/2025 Bamboo flowsheet [facility] [address] [place] [address] Maria Pendleton, DO 02/20/2025 Telephone [facility] [address] [place] [address] Mary Cruz MA 02/19/2025 Clinisync Result Encounter NOMS External Department Unsolicited Maria Pendleton, DO 02/16/2025 Abstract [facility] [address] [place] [address] Maggy Sanz LPN 02/12/2025 Clinisync Result Encounter NOMS External Department Unsolicited Maria Pendleton, DO 02/11/2025 10:50 AM EDT Routine [facility] [address] [place] [address] Priscilla Warren PA Third trimester ([facility]); 32 weeks gestation of ([facility]); Nausea 02/11/2025 Bamboo flowsheet [facility] BCP OB [address] [place] [address] Priscilla Warren PA 02/04/2025 Telephone [facility] [address] [place] [address] Suze Lopez LPN 01/30/2025 Abstract [facility] [address] [place] [address] Mary Cruz MA 01/28/2025 External Result Encounter NOMS External Department Unsolicited Priscilla Warren PA 01/27/2025 8:30 AM EDT Routine [facility] [address] [place] [address] Maria Pendleton, DO Third trimester ([facility]); 30 weeks gestation of ([facility]); H/O pre-eclampsia in prior , currently ([facility]); H/O delivery, currently ([facility]); Request for sterilization 01/27/2025 Abstract [facility] [address] [place] [address] Maria Pendleton, DO 01/27/2025 Bamboo flowsheet [facility] [address] [place] [address] Maria Pendleton, DO 01/20/2025 Abstract [facility] [address] [place] [address] Maria Pendleton, 01/15/2025 Telephone [facility] [address] [place] [address] Christy Cui MA 01/14/2025 11:20 AM EDT Routine [facility] OB [address] [place] [address] [place] [address] Reema Leslie, JEFFERSON Third trimester ([facility]); 28 weeks gestation of ([facility]) 01/14/2025 External Result Encounter NOMS External Department Unsolicited Maria Pendleton, DO 01/14/2025 Abstract [facility] [address] [place] [address] Maria Pendleton, DO 01/14/2025 Bamboo flowsheet [facility] [address] [place] [address] Reema Leslie, JEFFERSON 01/09/2025 Results Follow-Up [facility] [address] [place] [address] Suze Lopez, PHONE OPERATOR 01/08/2025 Results Follow-Up [facility] [address] [place] [address] Suze Lopez, PHONE OPERATOR 01/08/2025 Telephone [facility] [address] [place] [address] Suze Lopez, PHONE OPERATOR 01/08/2025 Clinisync Result Encounter NOMS External Department Unsolicited Maria Pendleton, DO 01/06/2025 Results Follow-Up [facility] [address] [place] [address] Suze Lopez, PHONE OPERATOR 01/06/2025 Clinisync Result Encounter NOMS External Department Unsolicited Priscilla Warren PA 12/30/2024 11:10 AM EDT Routine [facility] [address] [place] [address] Maria Pendleton, DO Second trimester ([facility]); 26 weeks gestation of ([facility]); Seen in emergency room; Exposure to STD; HSV (herpes simplex virus) infection 12/30/2024 External Result Encounter NOMS External Department Unsolicited Maria Pendleton, DO 12/30/2024 Bamboo flowsheet [facility] [address] [place] [address] Maria Pendleton, DO 12/29/2024 Abstract [facility] [address] [place] [address] Maria Pendleton DO 12/23/2024 Telephone [facility] [address] [place] [address] Christy Cui MA 12/17/2024 Abstract [facility] [address] [place] [address] Maria Pendleton DO 12/16/2024 Abstract [facility] [address] [place] [address] Maria Pendleton DO from Last 3 Months [...] [address] [place] [address] Maria Pendleton DO [address] [facility] [address] [place] [address] 11/19/2025 10:50 AM EST Office Visit [facility] D[facility]M [address] [place] [address] Kayleigh Chung, RODEO CLOWN-RN TELE [address] [place], [place] [address] Procedures Procedure Name Priority Date/Time Associated Diagnosis Comments US OB BPP W NON-STRESS 03/05/2025 12:03 PM EDT US OB BPP W NON-STRESS 02/26/2025 1:13 PM EDT POCT URINALYSIS DIPSTICK Routine 02/24/2025 12:05 PM EDT 34 weeks gestation of ([facility]) Third trimester ([facility]) US OB BPP W NON-STRESS 02/19/2025 11:29 AM EDT US OB BPP W NON-STRESS 02/12/2025 9:06 AM EDT POCT URINALYSIS DIPSTICK Routine 02/11/2025 11:00 AM EDT Third trimester ([facility]) 32 weeks gestation of ([facility]) FERRITIN Routine 01/28/2025 8:32 AM EDT TRANSFERRIN Routine 01/28/2025 8:32 AM EDT RECURRENT VAGINITIS (HTRX) Routine 01/14/2025 11:52 AM EDT POCT URINALYSIS DIPSTICK Routine 01/14/2025 11:31 AM EDT Third trimester ([facility]) TBH CREATININE Routine 01/08/2025 8:35 AM EDT ALL BUN Routine 01/08/2025 8:35 AM EDT ALL CBC WITH AUTO DIFF Routine 01/08/2025 8:35 AM EDT TBH URINE MICROSCOPIC ONLY Routine 01/08/2025 8:05 AM EDT TBH UA (CLEAN/CATCH) ARTS THERAPIST/MICRO IF IND. Routine 01/08/2025 8:05 AM EDT GLUCOSE 1 HOUR Routine 01/06/2025 10:42 AM EDT ALL CBC WITH AUTO DIFF Routine 01/06/2025 10:42 AM EDT RECURRENT VAGINITIS (HTRX) Routine 12/30/2024 3:26 PM EDT from Last 3 Months Results * US OB BPP W NON-STRESS (03/05/2025 12:03 PM EDT) Only the most recent of4 resultswithin the time period is included. Anatomical Region Laterality Modality Other 03/05/2025 12:0 3 PM EDT Narrative 03/05/2025 12:05 PM EDT [place] [id number] Ultrasound Report Signed Patient: LISHA VALENTIN MR#: [id number] : 1990 Acct:[id number] Age/Sex: 34 / F ADM Date: 03/05/25 Loc: [facility] 254-[address]: Maria Pendleton D.O. Ordering Physician: Maria Pendleton D.O. Date of Service: 03/05/25 Procedure(s): US OB BPP w non-stress Accession Number(s): [id number] cc: Maria Pendleton D.O.; Physician,Non-Staff [place] [address] Patient Name: LISHA VALENTIN MRN: [id number] date: 1990 Sex: F Assigned Patient Location: [facility] Current Patient Location: [facility] Accession/Order Number: [id number] Exam Date: 03/05/2025 12:01 Report Date: 03/05/2025 [...] Miller M.D. 03/05/2025 12:03 PM Dictation Location: [place] [address] Electronically authenticated by: [id number] Y Date: 03/05/2025 12:03 Dictated By: Michell Miller M.D. Signed By: 03/05/25 120 DD/ 120 TD/TT: [employer] Nurse: Procedure Note Radiology, Radiologist, - 03/05/2025 [place] [address] Ultrasound Report Signed Patient: LISHA VALENTIN GMR#: [id number] : 1990Acct:[id number] Age/Sex: 34 / FADM Date: 03/05/25 Loc: [facility] 254-[address]: Maria Pendleton D.O. Ordering Physician: Maria Pendleton D.O. Date of Service: 03/05/25 Procedure(s): US OB BPP w non-stress Accession Number(s): [id number] cc: Maria Pendleton D.O.; Physician,Non-Staff [place] [address] Patient Name: LISHA VALENTIN MRN: [id number] date: 1990 Sex: F Assigned Patient Location: [facility] Current Patient Location: [facility] Accession/Order Number: [id number] Exam Date: 03/05/2025 12:01 Report Date: 03/05/2025 [...] is in upper normal range. Total score: 8 US/US OB BPP w non-stress IMPRESSION: NORMAL BIOPHYSICAL PROFILE . Impression dictated by: Michell Miller M.D. 03/05/2025 12:03 PM Dictation Location: [place] [address] Electronically authenticated by: [id number] Y Date: 2:03 Dictated By: Michell Miller M.D. Signed By:03/05/25 1205 DD/ 1203 TD/TT: [employer] Nurse: us Maria Helder DO [facility] Final Result * (ABNORMAL) [...] Positive Urine 02/24/2025 12:0 5 PM EDT us Maria Helder DO POINT OF CARE TEST ENTER/EDIT OR DERABLES Final Result * Transferrin (01/28/2025 8:32 AM EDT) TRANSFERRIN 226 203 - 362 mg/dL 01/28/2025 11:02 AM EDT [facility] Other Topography unknown / Unknown 01/28/2025 8:32 AM EDT 01/28/2025 8:32 AM EDT Priscilla SRIVASTAVA LAB BLOOD ORDERABLES Final Resul t Performing Organization Address City/[facility]/ZIP Co de Phone Number [address] [address], [facility] [address] [place] [address] * Ferritin (01/28/2025 8:32 AM EDT) FERRITIN 43.0 11.0 - 306.8 ng/mL 01/28/2025 11:09 AM EDT [facility] Other Topography unknown / Unknown 01/28/2025 8:32 AM EDT 01/28/2025 8:32 AM EDT Priscilla SRIVASTAVA LAB BLOOD ORDERABLES Final Resul t Performing Organization Address [facility] de Phone Number [place] [phone], [facility] [address] [place] [address] * (ABNORMAL) RECURRENT VAGINITIS (HTRX) (01/14/2025 11:52 AM EDT) Only the most recent of2 resultswithin the time period is included. ATOPOBIUM VAGINAE 25.517(A) 19.961 - 24.689 ppm 01/15/2025 7:26 AM EDT [facility] ATOPOBIUM VAGINAE Detected(A) 19.961 - 24.689 ppm 01/15/2025 7:26 AM EDT [facility] BVAB 2,3 (BACTERIAL VAGINOSIS ASSOCIATED BACTERIA 2, 3); MOBILUNCUS SPP 23.796(A) 19.961 - 24.689 ppm 01/15/2025 7:26 AM EDT [facility] BVAB 2,3 (BACTERIAL VAGINOSIS ASSOCIATED BACTERIA 2, 3); MOBILUNCUS SPP Detected(A) 19.961 - 24.689 ppm 01/15/2025 7:26 AM EDT [facility] [place] MARION ALBICANS, PARAPSILOSIS, TROPICALIS 0.000 19.961 - 30.770 ppm 01/15/2025 7:26 AM EDT [facility] MARION ALBICANS, PARAPSILOSIS, TROPICALIS Not Detected 19.961 - 30.770 ppm 01/15/2025 7:26 AM EDT [facility] MARION GLABRATA 0.000 23.000 - 32.138 ppm 01/15/2025 7:26 AM EDT [facility] MARION GLABRATA Not Detected 23.000 - 32.138 ppm 01/15/2025 7:26 AM EDT [facility] MARION KRUSEI 0.000 23.000 - 32.271 ppm 01/15/2025 7:26 AM EDT [facility] MARION KRUSEI Not Detected 23.000 - 32.271 ppm 01/15/2025 7:26 AM EDT [facility] CHLAMYDIA TRACHOMATIS 0.000 23.000 - 31.467 ppm 01/15/2025 7:26 AM EDT [facility] CHLAMYDIA TRACHOMATIS Not Detected 23.000 - 31.467 ppm 01/15/2025 7:26 AM EDT [facility] GARDNERELLA VAGINALIS 0.000 19.961 - 24.689 ppm 01/15/2025 7:26 AM EDT [facility] GARDNERELLA VAGINALIS Not Detected 19.961 - 24.689 ppm 01/15/2025 7:26 AM EDT [facility] MEGASPHAERA (TYPES 1, 2) 0.000 19.961 - 24.689 ppm 01/15/2025 7:26 AM EDT [facility] MEGASPHAERA (TYPES 1, 2) Not Detected 19.961 - 24.689 ppm 01/15/2025 7:26 AM EDT [facility] NEISSERIA GONORRHOEAE 0.000 23.000 - 32.117 ppm 01/15/2025 7:26 AM EDT [facility] NEISSERIA GONORRHOEAE Not Detected 23.000 - 32.117 ppm 01/15/2025 7:26 AM EDT [facility] TRICHOMONAS VAGINALIS 0.000 23.000 - 32.119 ppm 01/15/2025 7:26 AM EDT [facility] TRICHOMONAS VAGINALIS Not Detected 23.000 - 32.119 ppm 01/15/2025 7:26 AM EDT [facility] MYCOPLASMA GENITALIUM 0.000 19.961 - 24.689 ppm 01/15/2025 7:26 AM EDT [facility] MYCOPLASMA GENITALIUM Not Detected 19.961 - 24.689 ppm 01/15/2025 7:26 AM EDT [facility] Tissue 01/14/2025 11:5 2 AM EDT 01/15/2025 2:13 AM EDT Maria Helder DO LAB BLOOD ORDERABLES Final Resul t [facility] [address] [place] [address] * TB CREATININE (01/08/2025 8:35 AM EDT) [facility] CREATININE 0.63 0.55 - 1.02 mg/dL TBH TBH EGFR-AF NAMIBIAN >60 >=60 mL/min/1.7 3m 2 TBH TBH EGFR-NON AF NAMIBIAN >60 >=60 mL/min/1.7 3m 2 TBH 01/08/2025 8:35 AM EDT 01/08/2025 8:39 AM EDT Narrative [facility] - 01/08/2025 8:49 AM EDT Maria Helder DO [facility] Final Result [facility] * (ABNORMAL) ALL CBC WITH AUTO DIFF (01/08/2025 8:35 AM EDT) Only the most recent of2 resultswithin the time period is included. [facility] 8.9 4.0 - 11.0 10 3/uL [...] [facility] - 01/08/2025 8:42 AM EDT Maria Pendleton DO [facility] Final Result [facility] TB * ALL BUN (01/08/2025 8:35 AM EDT) BLOOD UREA NITROGEN 8.0 7.0 - 18.0 mg/dL TBH 01/08/2025 8:35 AM EDT 01/08/2025 8:39 AM EDT Narrative [facility] - 01/08/2025 8:49 AM EDT Maria Helder DO [facility] Final Result Performing Organization Address [facility] de Phone Number [facility] * (ABNORMAL) TBH URINE MICROSCOPIC ONLY (01/08/2025 8:05 AM EDT) Pathologist [facility] TBH WBC 5-10(A) NONE SEEN #/HPF TBH [...] DO [facility] Final Result Performing Organization Address [facility] Co de Phone Number [facility] * (ABNORMAL) TBH UA (CLEAN/CATCH) ARTS THERAPIST/MICRO IF IND. (01/08/2025 8:05 AM EDT) COLOR [...] DO [facility] Final Result [facility] * GLUCOSE 1 HOUR (01/06/2025 10:42 AM EDT) GLUCOSE 1 HOUR 124 <130 mg/dL TBH 01/06/2025 10:4 2 AM EDT 01/06/2025 10:43 AM EDT Narrative [facility] - 01/06/2025 11:08 AM EDT us Priscilla SRIVASTAVA LAB BLOOD ORDERABLES Final Resul t [facility] from Last 3 Months Insurance [employer] [facility] Care Teams Packager Head Relationship Specialty Start Date End Date Sarah Lopze DO [address] [place] [address] Referring Physician Emergency Medicine 02/18/23
--- OUTSIDE RECORDS SUMMARY | 2025-03-09 13:11 | XMS_ITS | Encounter Summary ---
Author Organization [facility] Address [address] [place] [address] Care Team Providers Care Scallop Cutter Name Role Phone Sarah Lopez DO Unavailable [phone] Encounter Details Date Type Department Care Team (Late st Contact Info) Description 01/06/2025 Results Follow-Up [facility] BCP OB [address] [place] [address] Suze Lopez LPN [address] [place] [id number] Social History Tobacco Use Types Packs/Day Years [...] AM EDT Routine [facility] BCP OB [address] [place] [address] Malcolm Pendleton DO [address] [place] [address] 11/19/2025 10:50 AM EST Office Visit [facility] [address] [place] [address] Kayleigh Chung, CHEMICAL HANDLER-INSPECTOR [employer] [address] [place] [address] documented as of this encounter Visit Diagnoses Not on filedocumented in this encounter Care Teams Scallop Cutter Relationship Specialty Start Date End Date Sarah Lopez DO [address] [place] [address] Referring Physician Emergency Medicine 02/18/23 documented as of this encounter
--- OUTSIDE RECORDS SUMMARY | 2025-03-09 13:11 | XMS_ITS | Encounter Summary ---
Author Organization [facility] Address [address] [place] [address] Care Team Providers Care Clinching Machine Operator Name Role Phone Sarah Lopez DO Unavailable [phone] Encounter Details Date Type Department Care Team (Late st Contact Info) Description 01/30/2025 Abstract [facility] BCP OB [address] [place] [address] Mary Cruz MA Social History Tobacco [...] [place] [address] Malcolm Pendleton DO [address] [place], [place] [id number] 11/19/2025 10:50 AM EST Office Visit [facility] [address] [place] [address] Kayleigh Chung APRN-TAXICAB DRIVER [address] [place] [address] documented as of this encounter Visit Diagnoses Not on filedocumented in this encounter Care Teams Clinching Machine Operator Relationship Specialty Start Date End Date Sarah Lopez DO [address] [place] [address] Referring Physician Emergency Medicine 02/18/23 documented as of this encounter
--- OUTSIDE RECORDS SUMMARY | 2025-03-09 13:11 | XMS_ITS | Encounter Summary ---
Author Organization [facility] Address [address] [place] [address] Care Team Providers Care Production Assembler Name Role Phone Sarah Lopez DO Unavailable [phone] Encounter Details Date Type Department Care Team (Late st Contact Info) Description 01/27/2025 Abstract [facility] BCP OB [address] [place] [address] Malcolm Pendleton DO [facility] [address] [place], [facility]11 Social History Tobacco Use Types [...] [place] [address] Malcolm Pendleton DO [facility] [place] [address] 11/19/2025 10:50 AM EST Office Visit [facility] DER[facility] [address] [place] [address] [place] Chung APRN-STORE SPECIALIST [address] [place] [address] documented as of this encounter Visit Diagnoses Not on filedocumented in this encounter Care Teams Production Assembler Relationship Specialty Start Date End Date Sarah Lopez DO [address] [place] [address] Referring Physician Emergency Medicine 02/18/23 documented as of this encounter
--- OUTSIDE RECORDS SUMMARY | 2025-03-09 13:11 | XMS_ITS | Clinical Summary ---
Author Organization [facility] Address [id number] [address] [place] [address] Care Team Providers Care Concrete Engineering Technician Name Role Phone No Pcp, No Pcp [...] Team Description 02/26/2025 Telephone Maternal- Medicine at [facility] [address] [place] [address] Caroline Chavira RN 02/04/2025 Telephone Maternal Medicine [place] [address] [place] [address] [place] [address] Josey Valentine 01/28/2025 Orders Only Maternal- Medicine at [facility] [address] [place] [address] Marci Coppola CMA Thalassemia alpha carrier (Primary Dx); Family history of sickle cell trait; Family history of DVT; History of anemia; Choroid plexus cyst of fetus affecting care of mother, antepartum, fetus 1; Abnormal genetic test during ; Previous delivery affecting , antepartum; History of pre-eclampsia in prior , currently in first trimester 01/28/2025 Telephone Maternal Medicine [place] [address] [place] [address] Josey Valentine 01/27/2025 9:56 AM EDT - 01/27/2025 11:59 PM EDT Hospital Encounter [facility] - Ultrasound [address] [place] [address] History of anemia Discharge Disposition: Home 01/27/2025 Travel 01/13/2025 9:00 AM EDT - 01/13/2025 11:59 PM EDT Hospital Encounter [facility] - Ultrasound [address] [place] [address] Alpha thalassemia silent carrier Discharge Disposition: Home 01/13/2025 Travel 12/16/2024 8:46 AM EDT - 12/16/2024 11:59 PM EDT Hospital Encounter [facility] - Ultrasound [address] [place] [address] Alpha thalassemia silent carrier Discharge Disposition: Home 12/16/2024 Travel 12/12/2024 9:00 AM EDT Telemedicine Maternal- Medicine at [facility] [address] [place] [address] Torey Montgomery MD Allen Jo P, LGC Thalassemia alpha carrier (Primary Dx); Abnormal genetic test during ; Family history of sickle cell trait; Family history of DVT 12/12/2024 Travel 12/09/2024 Telephone Maternal- Medicine at [facility] [address] [place] [address] Natalie Díaz, ROMEO 12/09/2024 Orders Only Maternal- Medicine at [facility] [address] [place] [address] Natalie Díaz, RN Choroid plexus cyst of fetus affecting care of mother, antepartum, fetus 1 12/09/2024 Orders Only Maternal- Medicine at [facility] [address] [place] [address] Natalie Díaz, RN Thalassemia alpha carrier (Primary Dx) 12/08/2024 Telephone Maternal- Medicine at [facility] [address] [place] [address] Josey Valentine 12/08/2024 Documentation Maternal- Medicine at [facility] [address] [place] [address] Torey Montgomery MD from Last 3 Months [...] Procedure Name Priority Date/Time Associated Diagnosis Comments [facility] OB FOLLOW-UP, 1 FETUS Routine 01/27/2025 10:46 AM EDT History of anemia [facility] LMTD OB, 1 OR MORE FETUS [...] period is included. Anatomical Region Laterality Modality OB-VACUUM SYSTEM TESTER Ultrasound 01/27/2025 10:0 9 AM EDT Narrative 01/27/2025 11:10 AM EDT NAME: MARIAN HUSAIN : 1990 SEX: F Accession Number: [id number] ORDERING PHYSICIAN: TOREY MONTGOMERY REFERRING PHYSICIAN: MARIA HARTLEY Coding ----- --------- Procedures 31832: Follow-up Ultrasound, per fetus 348[address]: Doppler velocimetry, ; middle cerebral artery Indication [...] EFW (oz) 3 oz EFW by: Hadlock ([id number]) Extended Tibia 48.0 mm 29w 0d 16% Osiel Accuracy Expert 3.6 mm CM 5.9 mm 19% Nicolaides [...] Heart/Thorax: 4-chamber view. RVOT view. LVOT view. 1-cyalil-qztkgvb view. Situs. Aortic arch view. Bicaval view. [...] 1.99 30% Ebbing RI 0.84 71% [facility] PS 50.72 cm/s PS 1.24 MoM [...] HUSAIN : 1990 SEX: F Accession Number: [id number] ORDERING PHYSICIAN: TOREY MONTGOMERY REFERRING PHYSICIAN: MARIA HARTLEY Coding ----- --------- Procedures 66970: Follow-up Ultrasound, per fetus [address]: Doppler velocimetry, ; middle cerebral artery Indication [...] EFW (oz) 3 oz EFW by: Hadlock ([id number]) Extended Tibia 48.0 mm 29w 0d 16% Osiel Accuracy Expert 3.6 mm CM 5.9 mm 19% Nicolaides [...] Heart/Thorax: 4-chamber view. RVOT view. LVOT view. 1-xpfvbd-pbnqtgt view.Situs. Aortic arch view. Bicaval view. Ductal [...] thepatient as necessary. us Torey Montgomery MD [facility] ORDERABLES Final Resul t from Last 3 Months Insurance [employer] [place] [employer] [facility] [employer] Care Teams Concrete Engineering Technician Relationship Specialty Start Date End Date No Pcp, No Pcp KRISTOPHER Mccormick [address] PCP - General Family Medicine 02/21/24
--- OUTSIDE RECORDS SUMMARY | 2025-03-09 13:11 | XMS_ITS | Encounter Summary ---
Author Organization [facility] Address [address] [place] [address] Care Team Providers Care Manager Mall Name Role Phone Sarah Lopez DO Unavailable [phone] Encounter Details Date Type Department Care Team (Late st Contact Info) Description 09/15/2024 Abstract [facility] OB [address] [place] [address] Malcolm Pendleton DO [facility] [address] Garcia, [facility]11 Social History Tobacco Use Types Packs/Day [...] Routine [facility] OB [address] [place] [address] Malcolm Pendleton DO [facility] [place] [address] 11/19/2025 10:50 AM EST Office Visit [facility] [address] [place] [address] Kayleigh Chung APRN-ODD JOB WORKER [address] [place] [address] documented as of this encounter Visit Diagnoses Not on filedocumented in this encounter Care Teams Manager Mall Relationship Specialty Start Date End Date Sarah Lopez DO [address] [place] [address] Referring Physician Emergency Medicine 02/18/23 documented as of this encounter
--- OUTSIDE RECORDS SUMMARY | 2025-03-09 13:11 | XMS_ITS | Encounter Summary ---
Author Organization [facility] Address [address] [place] [address] Care Team Providers Care Shearing Shed Hand Name Role Phone Sarah Lopez DO Unavailable [phone] Encounter Details Date Type Department Care Team (Late st Contact Info) Description 12/16/2024 Abstract [facility] OB [address] [place] [address] Malcolm Pendleton DO [facility] Rula Garcia, [facility]11 Social History Tobacco Use Types [...] [place] [address] Malcolm Pendleton DO [facility] [place] [address] 11/19/2025 10:50 AM EST Office Visit [facility] [address] [place] [address] Kayleigh Chung APRN-RESTAURANT TEAM MEMBER [address] [place] [address] documented as of this encounter Visit Diagnoses Not on filedocumented in this encounter Care Teams Shearing Shed Hand Relationship Specialty Start Date End Date Sarah Lopez DO [address] [place] [address] Referring Physician Emergency Medicine 02/18/23 documented as of this encounter
== END 2025-03-09 13:38 | disposition home or self-care (01) ==
LOC: FBCO 13:07 → FBC 13:07
PROVIDERS: Visit Provider Obstetrics & Gynecology
DX: O26.893 Other specified pregnancy related conditions, third trimester (principal); Z3A.36 36 weeks gestation of pregnancy
CPT/HCPCS: 59025

== ENCOUNTER 2025-03-10 19:19 | Outpatient (REF) | payer OTHER, MEDICAID, SELFPAY ==
--- OUTSIDE RECORDS SUMMARY | 2022-11-20 08:27 | XMS_ITS | Continuity of Care Document ---
Author Organization [facility] Address [address] [place] [address] Phone Care Team Providers Care Skating Carhop Name Role Phone Dawson Hernandez Unavailable Unavailable [...] Diagnoses Date Provider Providers Copied on Encounter [facility], [address] [place], [place], [address], [place] tel:[phone] [facility] No Information Nov-0 3 Vida Conrad. [address] [place], [place], [address] , [place]. tel:[phone] [facility], [address] [place], [place], [address], [place] tel:[phone] [facility] No Information Elinaruchi Dawson. [address] [place], [place], [address] , [place]. tel: [phone] PREV VISIT, NEW, AGE 18-41 [facility], [address] [place], [place], [address], [place] tel:[phone] [facility] establish care (chief complaint)b irth control (chief complaint) Gynecological ExaminationOther specified contraceptive management 4 Prashanth [facility] Maggy. [address] [place], [place], [address] , [place]. tel: [phone] Family History Family Member Type Diagnosis Age [...] Insurance type Covered libertarian ID Authoriza tion(s) [facility] CI [id number] Medicaid Wrap - [facility] [place] [id number] [facility] [id number] Medicaid Wrap - [facility] [place] [id number] Social History Type Description Quantity Date Captured [...]
--- OUTSIDE RECORDS SUMMARY | 2024-07-23 09:30 | XMS_ITS ---
Author Organization [facility] Servic es Address [address] [place] [address] Care Team Providers Care Bead Worker Sewing Name Role Phone Yudelka Lopez Primary Care Provider [phone] Leroy Salazar Unavailable [phone] REASON FOR VISIT cough, congestion Encounters Encounter Location Date Provider Diagnosis [facility] [address] [place] [address] 07/23/2024 Yudelka Lopez Plan Of Treatment No Information Progress Notes * LISHA FONSECA GDOB: [birth year] (34 yo F)Acc No.[id number]:07/23/2024 PROGRESS NOTES Patient: Deb SANCHEZ LISHA Moe Provider: Rowan Lopez :1990 A ge:34 Y S ex:Female Date:07/23/2024 Address:[address], [place] [id number] Subjective: * Chief Complaints: * 1 . Cough, congestion. * Medical History: Objective: * Vitals: Assessment: Plan: * Treatment: * Images: * Electronic signature of Howard Lopez CNP on 03/10/2025 at 11:08 AM EDT Sign off status: Pending * Provider: Rowan Lopez Date: 09/22/2023 Generated for Damon dailey/Timothy/eTransmitting on: 0 03/10/2025 11:08 AM EDT
--- OUTSIDE RECORDS SUMMARY | 2024-11-28 05:20 | XMS_ITS ---
Author Organization [facility] Servic es Address [address] [facility] [place] [address] Care Team Providers Care Stack Yield Engineer Name Role Phone Yudelka Lopez Primary Care Provider [phone] Leroy Salazar Unavailable [phone] REASON FOR VISIT new pt Encounters Encounter Location Date Provider Diagnosis [facility] Services [address] [place] [address] 11/28/2024 Leroy Salazar Plan Of Treatment No Information Progress Notes * LISHA FONSECA GDOB: [birth year] (34 yo F)Acc No.[id number]:11/28/2024 Patient: ISAAK MALCOLMLEY Moe Provider: Deb Salazar DDS :1990 A ge:34 Y S ex:Female Date:11/28/2024 Address:[address] [place] [address], [address], [facility] Pcp:Yudelka Lopez Subjective: * Chief Complaints: * 1 . New pt. * Medical History: Objective: * Vitals: Assessment: Plan: * Treatment: * Images: * Electronic signature of Dr. Leroy Salazar , DMD on 03/10/2025 at 11:08 AM EDT Sign off status: Pending * Provider: Deb Salazar DDS Date: 11/28/2024 Generated for Printi ng/Faxing/eTransmitting on: 03/10/2025 11:08 AM EDT
--- OUTSIDE RECORDS SUMMARY | 2025-02-24 11:40 | XMS_ITS | Encounter Summary ---
Author Organization [facility] Address [address] [place] [address] Care Team Providers Care Director Critical Care Name Role Phone Sarah Lopez DO Unavailable [phone] Reason for Visit * Reason Comments Routine Visit Encounter Details Date Type Department Care Team (Late st Contact Info) Description 02/24/2025 11:40 AM EDT Routine [facility] [address] [place] [address] Malcolm Pendleton DO [address] [facility] [address] Mary Garcia, [facility]11 34 weeks gestation of ([facility]); Third trimester ([facility]) Social History Tobacco Use Types Packs/Day Years [...] Sign Reading Time Taken Comments Blood Pressure 120/68 02/24/2025 12:01 PM EDT Pulse - - Temperature - - Respiratory Rate - - Oxygen Saturation - - Inhaled Oxygen Concentration - - Weight 92.6 kg (204 lb 1.9 oz) 02/24/2025 12:01 PM EDT Height - - Body Mass Index 36.16 02/19/2024 10:46 AM EDT documented in this encounter Progress Notes * Malcolm Pendleton DO - 02/24/2025 11:40 AM EDT Reason for Appointment: Patient ID: Leandra Valentin is a 34 y.o. female who presents for Routine Visit Patient presents today for Return OB appointment. Current Medications: has a current medication list which includes the following prescription(s): amoxicillin, ondansetron odt, triamcinolone, and valacyclovir. Medical History: Active Ambulatory Problems Diagnosis Date Noted 10 [...] Syncope 06/2016 Varicella zoster Vitamin D deficiency Family History Problem Relation Name Age of [...] LEGACY PAP SMEAR 07/03/2022 negative TUMOR REMOVAL Allergies Allergen Reactions Labetalol Other, Shortness of breath and Unknown Other Reaction(s): Dizziness, loopiness, burning sensation in chest Other Reaction(s): Difficulty Breathing Cefdinir Other Reaction(s): Unknown Reaction Methimazole Other Reaction(s): throat closing Other Reaction(s): anaphylaxis Labetalol Hcl Hives Review of Systems: Review of Systems All other systems reviewed and are negative. Objective Physical Exam Constitutional: Appearance: Normal appearance. She [...] nursing note reviewed. Exam conducted with a marketing representative present. Vitals: Estimated body mass index is 36.16 kg/m?? as calculated from the following: Height as of 02/19/24: 5' 3 . Weight as of this encounter: 204 lb 1.9 oz. BP: 120/68 Patient's last menstrual period was 06/23/2024. Assessment/Plan Encounter Diagnosis: ICD-10-CM 1. 34 weeks gestation of Z3A.34 POCT urinalysis dipstick manually resulted 2. Third trimester Z34.93 POCT urinalysis dipstick manually resulted Return OB: Patient presents today for a routine obstetrics appointment. Patient is currently 34w2d . Patient states she is doing well [...] week for routine OB appointment. Documented by Malcolm Pendleton DO on behalf of: Malcolm Pendleton DO documented in this encounter Plan of Treatment Upcoming Encounters Date Type Department Care Team (Late st Contact Info) Description 03/17/2025 11:30 AM EDT Routine [facility] OB [address] [facility] [place] [address] Priscilla Warren PA [address] [facility] [address] [place], [place] [id number] 11/19/2025 10:50 AM EST Office Visit [facility] [address] [place] [address] Kayleigh Chung, LICENSED LAND SURVEYOR-ARTS EDUCATION TEACHER [address] [place] [address] documented as of this encounter Procedures Procedure Name Priority Date/Time Associated Diagnosis Comments POCT URINALYSIS DIPSTICK Routine 02/24/2025 12:05 PM EDT 34 weeks gestation of ([facility]) Third trimester ([facility]) documented in this encounter Results * (ABNORMAL) POCT urinalysis dipstick manually resulted (02/24/2025 12:05 PM EDT) Color, UA Yellow Clarity, UA Clear Glucose, UA Negative Negative - 2000(110) ++++ mg/dL Bilirubin, UA Negative Negative - 4(70) +++ mg/dL Ketones, UA Negative Negative - 160(16) ++++ mg/dL Spec Grav, UA 1.020 1 - 1.03 Blood, UA Positive Negative - 50 Hong/mcL Comment:trace-intact pH, UA 7.0 5 - 9 Protein, UA Negative Negative - 2000(20) ++++ mg/dL Urobilinogen, UA 1.0 0.2 - 12 mg/dL Leukocytes, UA Positive Negative - 500+++ Iqra/mcL Comment:large Nitrite, UA Negative Negative - Positive Urine 02/24/2025 12:0 5 PM EDT Malcolm Pendleton DO POINT OF CARE TEST ENTER/EDIT OR DERABLES Final Result documented in this encounter Visit Diagnoses Diagnosis 34 weeks gestation of ([facility]) Third trimester ([facility]) state, incidental documented in this encounter Care Teams Director Critical Care Relationship Specialty Start Date End Date Sarah Lopez DO [address] [place] [address] Referring Physician Emergency Medicine 02/18/23 documented as of this encounter
--- OUTSIDE RECORDS SUMMARY | 2025-03-10 11:10 | XMS_ITS | Encounter Summary ---
Author Organization [facility] Address [address] [place] [address] Care Team Providers Care Sex Worker Or Escort Name Role Phone Sarah Lopez DO Unavailable [phone] Encounter Details Date Type Department Care Team (Late st Contact Info) Description 03/10/2025 11:10 AM EDT Routine [facility] [address] [place] [address] Malcolm Pendleton DO [address] [facility] [address] [address] Mary Garcia, [place] [address] Third trimester ([facility]) Social History Tobacco Use Types Packs/Day Years [...] Diagnosis Date Noted 10 weeks gestation of ([facility]) 09/11/2024 First trimester ([facility]) 09/11/2024 Resolved Ambulatory Problems Diagnosis Date Noted [...] of thyroid function studies Acid reflux 02/2017 [facility] Alpha thalassemia silent carrier Anemia Endometriosis Fibroid, uterine History of anemia History of hyperthyroidism Hypothyroidism Irregular menses Menometrorrhagia Nontoxic multinodular goiter Overweight (BMI 25.0-29.9) Syncope 06/2016 [facility] Varicella zoster Vitamin D deficiency Social [...] nursing note reviewed. Exam conducted with a flight attendant/inflight supervisor present. Vitals: Estimated body mass index is 36.76 kg/m?? as calculated from the following: Height [...] Upcoming Encounters Date Type Department Care Team ([facility] st Contact Info) Description 03/17/2025 11:30 AM EDT Routine [facility] OB [address] [place] [address] Priscilla Warren PA [address] [place] [address] 11/19/2025 10:50 AM EST Office Visit [facility] [address] [place] [address] Kayleigh Chung APRN-GLUER [address] [place] [address] Scheduled Orders Name Type Priority Associated Diagnoses Orde r Schedule CULTURE, GROUP B STREP WITH SUSCEPTIBLITY Lab Routine Third trimester ([facility]) Expected: 03/10/2025, Expires: 03/10/2026 documented as of this encounter Visit Diagnoses Diagnosis Third trimester ([facility]) state, incidental documented in this encounter Care Teams Sex Worker Or Escort Relationship Specialty Start Date End Date Sarah Lopez DO [address] [place] [address] Referring Physician Emergency Medicine 02/18/23 documented as of this encounter
--- OUTSIDE RECORDS SUMMARY | 2025-03-10 19:24 | XMS_ITS | Clinical Summary ---
Author Organization [facility] Address [address] [place] [address] Phone Care Team Providers Care Pole Framer Machine Name Role Phone Yudelka Lopez APRN-UPPER CUTTER MACHINE Primary Care Provider + Social History Tobacco [...] this topic Medical Devices Implanted Type Area Tenoner Operator Device Identifier Shelf Expiration Date Model / Serial / Lot Mesh, Softmesh 3 X 6, Flat Case [id number] Implanted:Qty: 1 on 04/03/2022 by Sly Crocker MD MPH Mesh Abdomen DAVOL 05/14/2024 [id number] / / [id number] Description:Converted from [facility]. Please see archived information for full log information. Care Teams Pole Framer Machine Relationship Specialty Start Date End Date Yudelka Lopez, MINERAL INDUSTRY TEACHER-UPPER CUTTER MACHINE [address] [place] [address] PCP - General 01/20/23
--- OUTSIDE RECORDS SUMMARY | 2025-03-10 19:25 | XMS_ITS | Clinical Summary ---
Author Organization [facility] Address [address] [place] [address] Care Team Providers Care Telegraph Inspector Name Role Phone Unavailable Primary Care Provider [...] (2 - Td or Tdap) 01/09/2026 Insurance [facility] [place]
--- OUTSIDE RECORDS SUMMARY | 2025-03-10 19:25 | XMS_ITS | Encounter Summary ---
Author Organization [facility] Address [address] [place] [address] Phone Care Team Providers Care Dining Car Steward Name Role Phone Yudelka Lopez Primary Care Provider + Encounter Details Date Type Department Care Team (Late st Contact Info) Description 03/31/2022 Orders Only [facility] [address] [place] [address] Conversion, Onbase Social History Tobacco Use Types [...] on filedocumented in this encounter Care Teams Dining Car Steward Relationship Specialty Start Date End Date Yudelka Lopez APRN-CNP [address] [place] [address] PCP - General 01/20/23 documented as of this encounter
--- OUTSIDE RECORDS SUMMARY | 2025-03-10 19:25 | XMS_ITS | Clinical Summary ---
Author Organization [facility] Address [address] [place] [address] Care Team Providers Care Agent Spa Desk Name Role Phone Unavailable Primary Care Provider [...] Plan of Treatment Not on file Insurance [facility] [place] Advance Directives * Full Code (Latest Code Status on File) Date Activated Date Inactivated Comments 01/06/2016 3:26 PM 01/10/2016 9:07 PM * Full Code Date Activated Date Inactivated Comments 01/06/2016 12:49 PM 01/06/2016 3:26 PM * Full Code Date Activated Date Inactivated Comments 01/05/2016 8:33 PM 01/06/2016 12:49 PM
--- OUTSIDE RECORDS SUMMARY | 2025-03-10 19:25 | XMS_ITS | Encounter Summary ---
Author Organization [facility] Address [id number] [address] [place] [address] Care Team Providers Care Social Service Worker Name Role Phone No Pcp, No Pcp Primary Care Provider Unavailabl e Encounter Details Date Type Department Care Team (Late st Contact Info) Description 02/26/2025 Telephone Maternal- Medicine at [facility] [address] [place] [phone] Caroline Chvaira RN Social History Tobacco Use Types Packs/Day [...] on filedocumented in this encounter Care Teams Social Service Worker Relationship Specialty Start Date End Date No Pcp, [place] [address] PCP - General Family Medicine 02/21/24 documented as of this encounter
--- OUTSIDE RECORDS SUMMARY | 2025-03-10 19:26 | XMS_ITS | Patient Health Record ---
Author Organization [facility] es Address [address] [place] [address] Care Team Providers Care Supervisor Assembling Name Role Phone Yudelka Lopez Primary Care Provider [phone] Dr. Leroy Salazar Unavailable [phone] Allergies Allergen (clinical drug ingredient) Drug/Non Drug Allergy documented on EMR Reaction Allergy Type Onset Date Status labetalol Labetalol HCl shortness of breath Drug Allergy Active Results Component Value Reference Range Notes Quick Strep (Not yet reviewe d by provider) Interpretation: Performing Lab:, [facility], [address] [place] Notes/Report: Streptococcus pyogenes Ag [Presence] in Throat by Rapid immunoassay Negative for Group A Strep Antigen Note 1 ---- NOTE 2 Results are those of a screening test. NOTE 3 If clinically indica delmer please order a culture. NOTE 4 ---- NOTE 5 Reference range = Negative Complete Blood Count Auto Di ff (Not yet reviewed by provider) Interpretation: Performing Lab:, [facility], [address] [place] Notes/Report: For adults in ED, MDW > [...] 10*3/uL Monocyte Distribution Width 20.57 0.00-20.00 % Lipase Reviewed date:07/14/2024 05:15:14 PM Interpretation: Performing Lab: Notes/Report: Lipase 45.0 11.0-82.0 U/L Hepatic Panel Reviewed date:07/14/2024 05:15:14 PM Interpretation: Performing Lab:, [facility], [address] [place] Notes/Report: Total Protein 7.2 6.4-8.9 g/dL Albumin [...] Reviewed date:08/07/2024 07:53:16 AM Interpretation: Performing Lab:, [facility], [address] Notes/Report: Approximate Approximate hCG Gestational Age Range (mIU/ml) (weeks) 0.2-1 5-50 1-2 50-500 2-3 100-5,000 3-4 500-10,000 4-5 1,000-50,000 5-6 10,000-100,000 6-8 15,000-200,000 8-12 10,000-100,000 HCG,Quantitative 15155.00 Comprehensive Metabolic Pane l Reviewed date:08/07/2024 07:53:16 AM Interpretation: Performing Lab:, [facility], [address] Notes/Report: Glucose 98 70-100 mg/dL Random Glucose [...] et reviewed by provider) Interpretation: Performing Lab:, [facility], [address] [facility] Notes/Report: Glucose 73 70-100 mg/dL Random Glucose [...] re viewed by provider) Interpretation: Performing Lab:, [facility], [address] [facility] Notes/Report: BioFire Detected Detected Not Detecte This is a duplicate RP2.1 COVID (PCR) result to be used for statistical tracking purpose only. Dipstick and Microscopic (No t yet reviewed by provider) Interpretation: Performing Lab:, [facility], [address] [facility] Notes/Report: Name Collection Type:: Clean-Voided Midstream Color,Urine Light-Yellow Yellow Appearance,Urine Clear Clear Specificy [place],Urine 1.011 1.001-1.030 pH,Urine 6.5 5.0-9.0 Leukocyte Esterase,Urine [...] yet reviewed by provider) Interpretation: Performing Lab:, [facility], [address], [place] Notes/Report: Adenovirus Not [...] Reviewed date:07/14/2024 05:15:14 PM Interpretation: Performing Lab:, [facility], [place] Notes/Report: COVID-19 Cepheid Result Negative [...] for use by Cepheid Disclaimer authorized laborator [facility]; this test has been Cepheid Disclaimer authorized [...] Reviewed date:07/14/2024 05:15:14 PM Interpretation: Performing Lab:, [facility], [address] [place] [address] Notes/Report: Name Collection Type:: Clean-Voided Midstream Color,Urine Yellow Yellow Appearance,Urine Clear Clear Specificy [place],Urine 1.030 1.001-1.030 pH,Urine 6.0 5.0-9.0 Leukocyte Esterase,Urine [...] Reviewed date:07/14/2024 05:15:14 PM Interpretation: Performing Lab:, [facility], [address] [place] [address] Notes/Report: This is a duplicate Cepheid Xpert Xpress CoV-2/Flu/RSV Plus RNA by RT-PCR result to be used for statistical tracking purpose only. Cepheid COVID PCR Negative Negative Negative CT abdomen pelvis w con Reviewed date:07/14/2024 04:15:57 PM Interpretation: Performing Lab: Notes/Report: [facility] Main [address] [address] [address] Scan Report Signed Patient: Lisha Fonseca MR#: [id number] : 1990 Acct:[id number] Age/Sex: 34 / F ADM Date: 07/14/24 [...] Mancera Jr., D.OJorge07/14/2024 2:43 PM Dictation Location: [place] [address] Transcribed By: [facility] 07/14/24 1443 Dictated By: Leroy Mancera Jr, DO 07/14/24 1438 Signed By: <Electronically signed by Leroy Mancera Jr, DO in [place]> 07/14/24 1443 HCG,Urine Reviewed date:07/14/2024 05:15:14 PM Interpretation: Performing Lab: Notes/Report: Name Collection Type:: Clean-Voided Midstream HCG Qualitative,Urine Negative Ethyl Alcohol Profile Reviewed date:08/07/2024 07:53:16 AM Interpretation: Performing Lab:, [facility], [place] Notes/Report: Ethanol <10 Percent Ethanol TNP Complete Blood Count Auto Di ff Reviewed date:08/07/2024 07:53:16 AM Interpretation: Performing Lab:, [facility], [place] Notes/Report: White Blood Count 7.9 [...] Reviewed date:07/14/2024 05:15:14 PM Interpretation: Performing Lab:, [facility], [address] Notes/Report: For adults in [...] 10*3/uL Monocyte Distribution Width 20.43 0.00-20.00 % Reason For Referral No Information Social History [...] down, depressed, or hopeless More than h detention the days Trouble falling or staying a [...] 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 Stress is when someone feels tense, nervous, anxious, or cant sleep at night because their mind is troubled Not at all In the past year have you sp ent more than 2 nights in a row in a care home, custodial, mcc center, or juvenile correctional facility? No [...] Problem Status W/U Status Risk Notes Problem 78144641 Hyperthyroidism (E05.90) Active confirmed Problem 472098718 Thyroid nodule (E04.1) Active confirmed Problem 47418316 Iron deficiency anemia, unspecified iron deficiency anemia type (D50.9) Active confirmed Problem 0212563 Migraine with au ra and without status migrainosus, not intractable (G43.109) Active confirmed Problem 176684141 Endometriosis (N80.9) Active confirmed Problem 753225231 Anxiety disorder , unspecified (F41.9) Active confirmed Encounters Encounter Location Date Provider Diagnosis [facility] [address] [place] [address] 07/18/2024 [facility] [address] [place] [address] 08/13/[address] [facility] [address] [place] [address] 12/19/2024 Leroy Salazar Encounter for dental examination [...] Insured Coverage Start Date Coverage End Date [facility] [address] [place] [address] [id number] LISHA FONSECA Other 1 [employer] [place] Medicaid [address] [place] [address] [id number] LISHA FONSECA Self - patient is the insured 3 3 Wrap [employer] [facility] [address] [place] [address] [id number] LISHA FONSECA Self - patient is the insured 3 3 Wrap [employer] [place] [address] [place] [address] [id number] LISHA FONSECA Self - patient is the insured 3 zDENTAL DQ [facility] [place]P [place]-termed 22 [address] [place] [address] [id number] LISHA FONSECA Self - patient is the insured 2 zDental MEDICAID [facility] after [facility] CHP-terme d 22 [address] [place] [phone] [id number] LISHA FONSECA Self - patient is the insured 2 DENTAL HUMANA [address] [address] [place] [address] [id number] LISHA FONSECA 5 Dental Wrap [facility] [employer] [address] [place] [address] [id number] LISHA FONSECA Self - patient is the insured 5 Dental [employer] DQ [address] [address] [place] [address] [id number] LISHA FONSECA Self - patient is the insured 5 Medical (General) History Medical History History ICD Code hypertension anemia Covid 19 Surgical History Surgery Date(Month/Year) section-x2 Endometrial Tumor Resection 04/03/22 Hospitalization History Reason Date(Month/Year) see surgical Child x2
--- OUTSIDE RECORDS SUMMARY | 2025-03-10 19:27 | XMS_ITS | Encounter Summary ---
Author Organization [facility] Address [id number] [address] [place] [address] Care Team Providers Care Electrical Technician Instructor Name Role Phone No Pcp, No Pcp Primary Care Provider Unavailabl e Encounter Details Date Type Department Care Team (Late st Contact Info) Description 12/01/2024 Orders Only Maternal- Medicine at [facility] [address] [place] [phone] Natalie Díaz, RN Choroid plexus cyst of [...] 1 documented in this encounter Care Teams Electrical Technician Instructor Relationship Specialty Start Date End Date No Pcp, [place] [address] PCP - General Family Medicine 02/21/24 documented as of this encounter
--- OUTSIDE RECORDS SUMMARY | 2025-03-10 19:27 | XMS_ITS | Encounter Summary ---
Author Organization [facility] Address [id number] [address] [place] [address] Care Team Providers Care Bridge Ironworker Helper Name Role Phone No Pcp, No Pcp Primary Care Provider Unavailabl e Encounter Details Date Type Department Care Team (Late st Contact Info) Description 10/10/2024 Abstract Maternal- Medicine at [facility] [address] [place] [phone] Torey Barnett MD [address] [place] [address] Social History Tobacco Use Types Packs/Day Years [...] ORDERABLES Larissa l Result Performing Organization Address City/[facility] Co de Phone Number MANUALLY TRANSCRIBED RESULTS * Syphilis Total(Unknown Syphilis Status) (09/11/2024) Syphilis Total non- reactive MANUALLY TRANSCRIBED RESULTS us Not In System Ref Prov LAB BLOOD ORDERABLES Larissa l Result Performing Organization Address City/[facility] Co de Phone Number MANUALLY TRANSCRIBED RESULTS documented in this encounter Visit Diagnoses Not on filedocumented in this encounter Care Teams Bridge Ironworker Helper Relationship Specialty Start Date End Date No Pcp, [place] [address] PCP - General Family Medicine 02/21/24 documented as of this encounter
--- OUTSIDE RECORDS SUMMARY | 2025-03-10 19:27 | XMS_ITS | Encounter Summary ---
Author Organization [facility] Address [id number] [address] [place] [address] Care Team Providers Care Wrapping Machine Helper Name Role Phone No Pcp, No Pcp Primary Care Provider Unavailabl e Encounter Details Date Type Department Care Team (Late st Contact Info) Description 12/09/2024 Orders Only Maternal- Medicine at [facility] [address] [place] [phone] Natalie Díaz, RN Choroid plexus cyst of [...] MD LAB BLOOD ORDERABLES Final Re sult [employer] documented in this encounter Visit Diagnoses Diagnosis Choroid plexus cyst of fetus affecting care of mother, antepartum, fetus 1 documented in this encounter Care Teams Wrapping Machine Helper Relationship Specialty Start Date End Date No Pcp, [place] [address] PCP - General Family Medicine 02/21/24 documented as of this encounter
--- OUTSIDE RECORDS SUMMARY | 2025-03-10 19:28 | XMS_ITS | Encounter Summary ---
Author Organization [facility] Address [address] [place] [address] Care Team Providers Care It Administrative Assistant Name Role Phone Sarah Lopez DO Unavailable [phone] Encounter Details Date Type Department Care Team (Late st Contact Info) Description 02/24/2025 Bamboo flowsheet [facility] [address] [facility] [place] [address] Malcolm Pendleton [address] Mary [place], [place] [address] Social History Tobacco Use Types Packs/Day Years [...] AM EDT Routine [facility] [address] [facility] [place] [address] Priscilla Warren PA [address] [place] [address] 11/19/2025 10:50 AM EST Office Visit [facility] [address] [facility] [address] [place] [address] Kayleigh Chung, ASSISTANT PROFESSOR OF GERMAN-WAREHOUSE ADMINISTRATOR [address] [facility] [address] [place] [address] documented as of this encounter Visit Diagnoses Not on filedocumented in this encounter Care Teams It Administrative Assistant Relationship Specialty Start Date End Date Sarah Lopez DO [address] [place] [address] Referring Physician Emergency Medicine 02/18/23 documented as of this encounter
--- OUTSIDE RECORDS SUMMARY | 2025-03-10 19:28 | XMS_ITS | Encounter Summary ---
Author Organization [facility] Address [address] [place] [address] Care Team Providers Care Retention Representative Name Role Phone Sarah Lopez DO Unavailable [phone] Encounter Details Date Type Department Care Team (Late st Contact Info) Description 02/16/2025 Abstract [facility] [address] [place] [address] Maggy Sanz LPN Social History Tobacco [...] Description 03/17/2025 11:30 AM EDT Routine [facility] OB [address] [place] [address] Priscilla Warren PA [address] [place], [place] [address] [place], [place] [id number] 11/19/2025 10:50 AM EST Office Visit [facility] [address] [place] [address] Kayleigh Chung, INSTALLATION ENGINEER-SALES AND MARKETING ASSISTANT [address] [place] [address] documented as of this encounter Visit Diagnoses Not on filedocumented in this encounter Care Teams Retention Representative Relationship Specialty Start Date End Date Sarah Lopez DO [address] [place] [address] Referring Physician Emergency Medicine 02/18/23 documented as of this encounter
--- OUTSIDE RECORDS SUMMARY | 2025-03-10 19:28 | XMS_ITS | Encounter Summary ---
Author Organization [facility] Address [address] [place] [address] Care Team Providers Care Regional Rehabilitation Director Name Role Phone Sarah Lopez DO Unavailable [phone] Encounter Details Date Type Department Care Team (Late st Contact Info) Description 02/26/2025 Clinisync Result Encounter [facility] External Department Unsolicited Maria Pendleton DO [address], [facility] Social History Tobacco [...] OB [address] [place] [phone] Priscilla Wraren PA [address] [facility] [place] [address] 11/19/2025 10:50 AM EST Office Visit [facility] [address] [place] [address] Kayleigh Chung, EVENT COORDINATOR MARKETING AND SALES-PRINCIPAL WEB DEVELOPER [address] [place] [address] documented as of this encounter Procedures Procedure Name Priority Date/Time Associated Diagnosis Comments US OB BPP W NON-STRESS 02/26/2025 1:13 PM EDT documented in this encounter Results * US OB BPP W NON-STRESS (02/26/2025 1:13 PM EDT) Anatomical Region Laterality Modality Other 02/26/2025 1:13 PM EDT Narrative 02/26/2025 1:34 [place] [address] Ultrasound Report Signed Patient: LEANDRA VALENTIN MR#: [id number] : 1990 Acct:[id number] Age/Sex: 34 / F ADM Date: 02/26/25 Loc: US Attending Dr: Maria Pendleton D.O. Ordering Physician: Maria Pendleton D.O. Date of Service: 02/26/25 Procedure(s): US OB BPP w non-stress Accession Number(s): [id number] cc: Maria Pendleton D.O.; Physician,Non-Staff M.D. The [address] [address] Patient Name: LEANDRA VALENTIN MRN: [id number] date: 1990 Sex: F Assigned Patient Location: US Current Patient Location: ED.MAIN Accession/Order Number: [id number] Exam Date: 02/26/2025 13:13 Report Date: 02/26/2025 13:13 At the request of: MARIA PENDLETON DO Procedure: US OB BPP w non-stress Biophysical profile. Reason for exam: LGA. COMPARISON: BPP 02/19/2025. TECHNIQUE: Transabdominal imaging of the gravid uterus was obtained. FINDINGS: Rn Acute Dialysis reports a BPP of 8 out of 8. VIDA is normal at 16.4 cm. heart rate 135 bpm. US/US OB BPP w non-stress IMPRESSION: BPP 8 out of 8. Impression dictated by: Leroy Mancera Jr., D.O. 02/26/2025 1:13 PM Dictation Location: [place] [address] Electronically authenticated by: [id number] Y Date: 02/26/2025 13:13 Dictated By: Leroy Mancera M.D. Signed By: 02/26/25 1333 DD/ 1313 TD/TT: Pantograph Transferrer: Procedure Note Radiology, Radiologist, MD - 02/26/2025 [place] [address] Ultrasound Report Signed Patient: LEANDRA VALENTIN GMR#: [id number] : 1990Acct:[id number] Age/Sex: 34 / FADM Date: 02/26/25 Loc: US Attending Dr: Maria Pendleton D.O. Ordering Physician: Maria Pendleton D.O. Date of Service: 02/26/25 Procedure(s): US OB BPP w non-stress Accession Number(s): [id number] cc: Maria Pendleton D.O.; Physician,Non-Staff Kacey The [place] [id number] Patient Name: LEANDRA VALENTIN MRN: [id number] date: 1990 Sex: F Assigned Patient Location: US Current [facility] Accession/Order Number: [id number] Exam Date: 02/26/2025 13:13 Report Date: 02/26/2025 13:13 At the request of: MARIA PENDLETON DO Procedure: US OB BPP w non-stress Biophysical profile. Reason for exam: LGA. COMPARISON: BPP 02/19/2025. TECHNIQUE: Transabdominal imaging of the gravid uterus was obtained. FINDINGS: Rn Acute Dialysis reports a BPP of 8 out of 8. VIDA is normal at 16.4cm. heart rate 135 bpm. US/US OB BPP w non-stress IMPRESSION: BPP 8 out of 8. Impression dictated by: Leroy Mancera Jr., D.O. 02/26/2025 1:13 PM Dictation Location: [place] [address] Electronically authenticated by: [id number] Y Date: 3:13 Dictated By: Leroy Mancera M.D. Signed By:02/26/25 1334 DD/ 1313 TD/TT: Pantograph Transferrer: Maria Pendleton DO [facility] Final Result documented in this encounter Visit Diagnoses Not on filedocumented in this encounter Care Teams Regional Rehabilitation Director Relationship Specialty Start Date End Date Sarah Lopez DO [address] [place] [address] Referring Physician Emergency Medicine 02/18/23 documented as of this encounter
--- OUTSIDE RECORDS SUMMARY | 2025-03-10 19:29 | XMS_ITS | Encounter Summary ---
Author Organization [facility] Address [address] [place] [address] [place] [address] Care Team Providers Care Minor League Baseball Player Name Role Phone Sarah Lopez DO Unavailable [phone] Encounter Details Date Type Department Care Team (Late st Contact Info) Description 01/09/2025 Results Follow-Up [facility] [address] [place] [place] [address] Suze Lopez LPN [address] [place] [place] [id number] Social History Tobacco Use Types Packs/Day Years [...] AM EDT Routine [facility] OB [address] [facility] [address] [place] [address] Priscilla Warren PA [address] [place], [place] [address] 11/19/2025 10:50 AM EST Office Visit [facility] [address] [place] [address] Kayleigh Chung APRN-RESIDENTIAL THERAPIST [address] [place] [address] documented as of this encounter Visit Diagnoses Not on filedocumented in this encounter Care Teams Minor League Baseball Player Relationship Specialty Start Date End Date Sarah Lopez DO [address] [place] [address] Referring Physician Emergency Medicine 02/18/23 documented as of this encounter
--- OUTSIDE RECORDS SUMMARY | 2025-03-10 19:29 | XMS_ITS | Encounter Summary ---
Author Organization [facility] Address [address] [place] [address] Care Team Providers Care Sap Analyst Name Role Phone Sarah Lopez DO Unavailable [phone] Encounter Details Date Type Department Care Team (Late st Contact Info) Description 02/20/2025 Telephone [facility] [address] [place] [address] Mary Cruz MA Social History Tobacco Use [...] 02/20/2025 12:03 PM EDT OB: 33w5d P# [phone] Pt called in and seen at ER [...] AM EDT Routine [facility] OB [address] [place] [phone] Priscilla Warren PA [address] [place] [address] 11/19/2025 10:50 AM EST Office Visit [facility] [address] [place] [address] Kayleigh Chung, BACKEND JAVA DEVELOPER-CLOTH PATTERN MAKER [address] [place] [address] documented as of this encounter Visit Diagnoses Not on filedocumented in this encounter Care Teams Sap Analyst Relationship Specialty Start Date End Date Sarah Lopez DO [address] [place] [address] Referring Physician Emergency Medicine 02/18/23 documented as of this encounter
--- OUTSIDE RECORDS SUMMARY | 2025-03-10 19:29 | XMS_ITS | Encounter Summary ---
Author Organization [facility] Address [address] [place] [address] Care Team Providers Care Journeyman Welder Name Role Phone Sarah Lopez DO Unavailable [phone] Encounter Details Date Type Department Care Team (Late st Contact Info) Description 01/08/2025 Results Follow-Up [facility] OB [address] [address] Suze Lopez LPN [address] [place] [id number] Social History Tobacco Use Types Packs/Day Years [...] AM EDT Routine [facility] BCP OB [address] [place] [address] Priscilla Warren PA [address] [facility] [address] [place] [address] 11/19/2025 10:50 AM EST Office Visit [facility] [address] [place] [address] Kayleigh Chung, FOOD BEVERAGE ATTENDANT-PRINTER REPAIR TECHNICIAN [address] [place] [address] documented as of this encounter Visit Diagnoses Not on filedocumented in this encounter Care Teams Journeyman Welder Relationship Specialty Start Date End Date Sarah Lopez DO [address] [place] [address] Referring Physician Emergency Medicine 02/18/23 documented as of this encounter
--- OUTSIDE RECORDS SUMMARY | 2025-03-10 19:30 | XMS_ITS | Encounter Summary ---
Author Organization [facility] Address [address] [place] [address] Care Team Providers Care Hedge Trimmer Name Role Phone Sarah Lopez DO Unavailable [phone] Encounter Details Date Type Department Care Team (Late st Contact Info) Description 01/06/2025 Results Follow-Up [facility] OB [address] [place] [address] Suze Lopez LPN [address] [place] [place] [id number] Social History Tobacco Use Types Packs/Day Years [...] Routine [facility] BCP OB [address] [facility] [place] [address] Priscilla Warren PA [address] [facility] [address] [place], [place] [address] 11/19/2025 10:50 AM EST Office Visit [facility] [address] [place] [address] Kayleigh Chung, CEILING INSTALLER-ENGINEER TECHNICAL STAFF [address] [place] [address] documented as of this encounter Visit Diagnoses Not on filedocumented in this encounter Care Teams Hedge Trimmer Relationship Specialty Start Date End Date Sarah Lopez DO [address] [place] [address] Referring Physician Emergency Medicine 02/18/23 documented as of this encounter
--- OUTSIDE RECORDS SUMMARY | 2025-03-10 19:30 | XMS_ITS | Encounter Summary ---
Author Organization [facility] Address [address] [place] [address] Care Team Providers Care Enforcement Safety Officer Name Role Phone Sarah Lopez DO Unavailable [phone] Encounter Details Date Type Department Care Team (Late st Contact Info) Description 01/30/2025 Abstract [facility] OB [address] [place] [address] Mary Cruz MA Social History Tobacco [...] Routine [facility] BCP OB [address] [place] [address] Priscilla Warren PA [address] [place], [place] [address] 11/19/2025 10:50 AM EST Office Visit [facility] [address] [place] [address] Kayleigh Chung, SUPERINTENDENT GENERATING PLANT-MICA MINER [address] [place] [address] documented as of this encounter Visit Diagnoses Not on filedocumented in this encounter Care Teams Enforcement Safety Officer Relationship Specialty Start Date End Date Sarah Lopez DO [address] [place] [address] Referring Physician Emergency Medicine 02/18/23 documented as of this encounter
--- OUTSIDE RECORDS SUMMARY | 2025-03-10 19:31 | XMS_ITS | Encounter Summary ---
Author Organization [facility] Address [address] [place] [address] Care Team Providers Care Copy Lathe Operator Name Role Phone Sarah Lopez DO Unavailable [phone] Encounter Details Date Type Department Care Team (Late st Contact Info) Description 01/14/2025 Abstract [facility] OB [address] [place] [address] Malcolm Pendleton [address] Mary Garcia, [place] [address] Social History Tobacco Use Types Packs/Day Years [...] AM EDT Routine [facility] OB [address] [facility] [place] [address] Priscilla Warren PA [address] [place], [facility] 11/19/2025 10:50 AM EST Office Visit [facility] [address] [facility] [address] [place] [address] Kayleigh Chung APRN-[employer]ING [employer] [place] [address] [address] documented as of this encounter Visit Diagnoses Not on filedocumented in this encounter Care Teams Copy Lathe Operator Relationship Specialty Start Date End Date Sarah Loepz DO [address] [place] [address] Referring Physician Emergency Medicine 02/18/23 documented as of this encounter
--- OUTSIDE RECORDS SUMMARY | 2025-03-10 19:31 | XMS_ITS | Encounter Summary ---
Author Organization [facility] Address [address] [place] [address] Care Team Providers Care Career Discovery Teacher Name Role Phone Sarah Lopez DO Unavailable [phone] Encounter Details Date Type Department Care Team (Late Contact Info) Description 11/10/2024 Abstract [facility] [address] [place] [address] Ingrid Esquivel NP Social History Tobacco Use [...] [facility] BCP OB [address] [place] [id number] Priscilla Warren PA [address] [place], [place] [id number] 11/19/2025 10:50 AM EST Office Visit [facility] [address] [place] [address] Kayleigh Chung, CERTIFIED C[employer]ER[employer] [address] [place] [address] documented as of this encounter Visit Diagnoses Not on filedocumented in this encounter Care Teams Career Discovery Teacher Relationship Specialty Start Date End Date Sarah Lopez DO [address] [place] [address] Referring Physician Emergency Medicine 02/18/23 documented as of this encounter
--- OUTSIDE RECORDS SUMMARY | 2025-03-10 19:31 | XMS_ITS | Clinical Summary ---
Author Organization [facility] Healthcare Address [address] [place] [address] Care Team Providers Care Keg Raiser Name Role Phone Sarah Lopez DO Unavailable [phone] Allergies Active Allergy Reactions Criticality Noted Date [...] Date Diagnosed Date 10 weeks gestation of ([facility]) 2023 First trimester ([facility]) 09/11/2024 Estimated Date of Delivery Comme nts Yes 04/05/2025 Based on Ultraso und Encounters Date Type Department Care Team Description 03/10/2025 11:10 AM EDT Routine NOM[facility] [address] [place] [address] Maria Pendleton, Third trimester ([facility]) 03/10/2025 Bamboo flowsheet [facility]OM[facility] [address] [place] [address] Maria Pendleton, DO 03/05/2025 Clinisync Result Encounter NOMS External Department Unsolicited Maria Pendleton, DO 02/26/2025 Clinisync Result Encounter NOMS External Department Unsolicited Maria Pendleton, DO 02/24/2025 11:40 AM EDT Routine NOM[facility] [address] [place] [address] Maria Pendleton, DO 34 weeks gestation of ([facility]); Third trimester ([facility]) 02/24/2025 Bamboo flowsheet NOM[facility] [address] [place] [address] Maria Pendleton, 02/20/2025 Telephone [facility] [address] [place] [address] Mary Cruz MA 02/19/2025 Clinisync Result Encounter NOMS External Department Unsolicited Maria Pendleton, 02/16/2025 Abstract [facility] [address] [place] [address] Maggy Sanz LPN 02/12/2025 Clinisync Result Encounter NOMS External Department Unsolicited Maria Pendleton, 02/11/2025 10:50 AM EDT Routine [facility] OB [address] [place] [address] Priscilla Warren PA Third trimester ([facility]); 32 weeks gestation of ([facility]); Nausea 02/11/2025 Bamboo flowsheet [facility] OB [address] [place] [address] Priscilla Warren PA 02/04/2025 Telephone [facility] OB [address] [place] [address] Suze Lopez LPN 01/30/2025 Abstract [facility] OB [address] [place] [address] Mary Cruz MA 01/28/2025 External Result Encounter NOMS External Department Unsolicited Priscilla Warren PA 01/27/2025 8:30 AM EDT Routine [facility] OB [address] [place] [address] Maria Pendleton, Third trimester ([facility]); 30 weeks gestation of ([facility]); H/O pre-eclampsia in prior , currently ([facility]); H/O delivery, currently ([facility]); Request for sterilization 01/27/2025 Abstract [facility] OB [address] [place] [address] [place] [address] Maria Pendleton, DO 01/27/2025 Bamboo flowsheet [facility] OB [address] [place] [address] Maria Pendleton, 01/20/2025 Abstract [facility] OB [address] [place] [address] Maria Pendleton, DO 01/15/2025 Telephone [facility] OB [address] [place] [address] [place] [address] Cui Christy, MA 01/14/2025 11:20 AM EDT Routine NOM[facility] [address] [place] [address] Reema Leslie, JEFFERSON Third trimester ([facility]); 28 weeks gestation of ([facility]) 01/14/2025 External Result Encounter NOMS External Department Unsolicited Maria Pendleton, 01/14/2025 Abstract [facility] [address] [place] [address] Maria Pendleton, DO 01/14/2025 Bamboo flowsheet N[facility] [address] [place] [address] Reema Leslie, JEFFERSON 01/09/2025 Results Follow-Up [facility] [address] [place] [address] Suze Lopez, FAN BALANCER 01/08/2025 Results Follow-Up [facility] [address] [place] [address] Suze Lopez, FAN BALANCER 01/08/2025 Telephone [facility] [address] [place] [address] Suze Lopez, FAN BALANCER 01/08/2025 Clinisync Result Encounter NOMS External Department Unsolicited Maria Pendleton, 01/06/2025 Results Follow-Up N[facility] [address] [place] [address] Suze Lopez, FAN BALANCER 01/06/2025 Clinisync Result Encounter NOMS External Department Unsolicited Priscilla Warren PA 12/30/2024 11:10 AM EDT Routine NOM[facility] [address] [place] [address] Maria Pendleton, DO Second trimester ([facility]); 26 weeks gestation of ([facility]); Seen in emergency room; Exposure to STD; HSV (herpes simplex virus) infection 12/30/2024 External Result Encounter NOMS External Department Unsolicited Maria Pendleton, 12/30/2024 Bamboo flowsheet N[facility] [address] [place] [address] Maria Pendleton, 12/29/2024 Abstract [facility] [address] [place] [address] Maria Pendleton, 12/23/2024 Telephone [facility] [address] [place] [address] Christy Cui MA 12/17/2024 Abstract [facility] OB [address] [place] [address] [place] [address] Maria Pendleton, 12/16/2024 Abstract [facility] [address] [place] [address] Maria Pendleton, DO from Last 3 Months Family History [...] Pressure 118/70 03/10/2025 11:34 AM EDT Pulse 83 03/11/2023 9:58 AM EDT Temperature 36.6 C (97.8 F) 03/11/2023 9:58 AM EDT Respiratory Rate - - Oxygen Saturation 99% 03/11/2023 9:58 AM EDT Inhaled Oxygen Concentration - - Weight 94.1 kg (207 lb 8 oz) 03/10/2025 11:34 AM EDT Height 160 cm (5' 3 ) 02/19/2024 10:46 AM EDT Body Mass Index 36.76 02/19/2024 10:46 AM EDT Plan of Treatment Upcoming Encounters Date Type Department Care Team (Late st Contact Info) Description 03/17/2025 11:30 AM EDT Routine [facility] B[facility] OB [address] [facility] [address] Priscilla Warren PA [address] [place] [address] 11/19/2025 10:50 AM EST Office Visit [facility] [address] [place] [address] Kayleigh Chung, ENROBING MACHINE CORDER-POOL HALL INSPECTOR [address] [place] [address] Procedures Procedure Name Priority Date/Time Associated Diagnosis Comments OB BPP W NON-STRESS 03/05/2025 12:03 PM EDT US OB BPP W NON-STRESS 02/26/2025 1:13 PM EDT POCT URINALYSIS DIPSTICK Routine 02/24/2025 12:05 PM EDT 34 weeks gestation of ([facility]) Third trimester ([facility]) US OB BPP W NON-STRESS 02/19/2025 11:29 AM EDT US OB BPP W NON-STRESS 02/12/2025 9:06 AM EDT POCT URINALYSIS DIPSTICK Routine 02/11/2025 11:00 AM EDT Third trimester ([facility]) 32 weeks gestation of ([facility]) FERRITIN Routine 01/28/2025 8:32 AM EDT TRANSFERRIN Routine 01/28/2025 8:32 AM EDT RECURRENT VAGINITIS (HTRX) Routine 01/14/2025 11:52 AM EDT POCT URINALYSIS DIPSTICK Routine 01/14/2025 11:31 AM EDT Third trimester ([facility]) TBH CREATININE Routine 01/08/2025 8:35 AM EDT ALL BUN Routine 01/08/2025 8:35 AM EDT ALL CBC WITH AUTO DIFF Routine 01/08/2025 8:35 AM EDT TBH URINE MICROSCOPIC ONLY Routine 01/08/2025 8:05 AM EDT TBH UA (CLEAN/CATCH) LEG BREAKER/MICRO IF IND. Routine 01/08/2025 8:05 AM EDT [...] PM EDT Narrative 03/05/2025 12:05 [place] [address] Ultrasound Report Signed Patient: LISHA VALENTIN MR#: [id number] : 1990 Acct:[id number] Age/Sex: 34 / F ADM Date: 03/05/25 Loc: [facility] 254-[address]: Maria Pendleton D.O. Ordering Physician: Maria Pendleton D.O. Date of Service: 03/05/25 Procedure(s): US OB BPP w non-stress Accession Number(s): [id number] cc: Maria Pendleton D.O.; Physician,Non-Staff M.DJorge [place] [address] Patient Name: LISHA VALENTIN MRN: [id number] date: 1990 Sex: F Assigned Patient Location: [facility] Current Patient Location: [facility] Accession/Order Number: [id number] Exam Date: 03/05/2025 12:01 Report Date: 03/05/2025 [...] Miller M.D. 03/05/2025 12:03 PM Dictation Location: [place] [address] Electronically authenticated by: [id number] Y Date: 03/05/2025 12:03 Dictated By: Michell Miller M.D. Signed By: 03/05/25 1205 DD/ 1203 TD/TT: Paper Production Engineer: Procedure Note Radiology, Radiologist, MD - 03/05/2025 [place] [address] Ultrasound Report Signed Patient: LISHA VALENTIN GMR#: [id number] : 1990Acct:[id number] Age/Sex: 34 / FADM Date: 03/05/25 Loc: [facility] 254-[address]: Maria Pendleton D.O. Ordering Physician: Maria Pendleton D.O. Date of Service: 03/05/25 Procedure(s): US OB BPP w non-stress Accession Number(s): [id number] cc: Maria Pendleton D.O.; Physician,Non-Staff Kacey The [address] [id number] Patient Name: LISHA VALENTIN MRN: [id number] date: 1990 Sex: F Assigned Patient Location: [facility] Current Patient Location: [facility] Accession/Order Number: [id number] Exam Date: 03/05/2025 12:01 Report Date: 03/05/2025 [...] Miller M.D. 03/05/2025 12:03 PM Dictation Location: [place] [address] Electronically authenticated by: [id number] Y Date: 2:03 Dictated By: Michell Miller M.D. Signed By:03/05/25 1205 DD/ 1203 TD/TT: Paper Production Engineer: us Maria Helder DO [facility] Final [...] - 362 mg/dL 01/28/2025 11:02 AM EDT [facility] Other Topography unknown / Unknown 01/28/2025 8:32 AM EDT 01/28/2025 8:32 AM EDT Priscilla SRIVASTAVA LAB BLOOD ORDERABLES Final Resul t Performing Organization Address [facility]/[place] [address], [place] [phone] * Ferritin (01/28/2025 8:32 AM EDT) FERRITIN 43.0 11.0 - 306.8 ng/mL 01/28/2025 11:09 AM EDT [facility] Other Topography unknown / Unknown 01/28/2025 8:32 AM EDT 01/28/2025 8:32 AM EDT Priscilla SRIVASTAVA LAB BLOOD ORDERABLES Final Resul t Performing Organization Address [facility] [place] [address], [place] [phone] * (ABNORMAL) RECURRENT VAGINITIS (HTRX) (01/14/2025 11:52 AM EDT) Only the most recent of2 resultswithin the time period is included. ATOPOBIUM VAGINAE 25.517(A) 19.961 - 24.689 ppm 01/15/2025 7:26 AM EDT [facility] ATOPOBIUM VAGINAE Detected(A) 19.961 - 24.689 ppm 01/15/2025 7:26 AM EDT [facility] BVAB 2,3 (BACTERIAL VAGINOSIS ASSOCIATED BACTERIA 2, 3); MOBILUNCUS SPP 23.796(A) 19.961 - 24.689 ppm 01/15/2025 7:26 AM EDT [facility] BVAB 2,3 (BACTERIAL VAGINOSIS ASSOCIATED BACTERIA 2, 3); MOBILUNCUS SPP Detected(A) 19.961 - 24.689 ppm 01/15/2025 7:26 AM EDT [facility] MARION ALBICANS, PARAPSILOSIS, TROPICALIS 0.000 19.961 - 30.770 ppm 01/15/2025 7:26 AM EDT [facility] MARION ALBICANS, PARAPSILOSIS, TROPICALIS Not Detected 19.961 - 30.770 ppm 01/15/2025 7:26 AM EDT [facility] MARION GLABRATA 0.000 23.000 - 32.138 ppm 01/15/2025 7:26 AM EDT [facility] MARION GLABRATA Not Detected 23.000 - 32.138 ppm 01/15/2025 7:26 AM EDT [facility] MARION KRUSEI 0.000 23.000 - 32.271 ppm 01/15/2025 7:26 AM EDT [facility] MARION KRUSEI Not Detected 23.000 - 32.271 ppm 01/15/2025 7:26 AM EDT [facility] CHLAMYDIA TRACHOMATIS 0.000 23.000 - 31.467 ppm 01/15/2025 7:26 AM EDT [facility] CHLAMYDIA TRACHOMATIS Not Detected 23.000 - 31.467 ppm 01/15/2025 7:26 AM EDT [facility] GARDNERELLA VAGINALIS 0.000 19.961 - 24.689 ppm 01/15/2025 7:26 AM EDT [facility] GARDNERELLA VAGINALIS Not Detected 19.961 - 24.689 ppm 01/15/2025 7:26 AM EDT [facility] MEGASPHAERA (TYPES 1, 2) 0.000 19.961 - 24.689 ppm 01/15/2025 7:26 AM EDT [facility] MEGASPHAERA (TYPES 1, 2) Not Detected 19.961 - 24.689 ppm 01/15/2025 7:26 AM EDT [facility] NEISSERIA GONORRHOEAE 0.000 23.000 - 32.117 ppm 01/15/2025 7:26 AM EDT [facility] NEISSERIA GONORRHOEAE Not Detected 23.000 - 32.117 ppm 01/15/2025 7:26 AM EDT [facility] TRICHOMONAS VAGINALIS 0.000 23.000 - 32.119 ppm 01/15/2025 7:26 AM EDT [facility] TRICHOMONAS VAGINALIS Not Detected 23.000 - 32.119 ppm 01/15/2025 7:26 AM EDT [facility] MYCOPLASMA GENITALIUM 0.000 19.961 - 24.689 ppm 01/15/2025 7:26 AM EDT [facility] MYCOPLASMA GENITALIUM Not Detected 19.961 - 24.689 ppm 01/15/2025 7:26 AM EDT [facility] Tissue 01/14/2025 11:5 2 AM EDT 01/15/2025 2:13 AM EDT us Maria Helder DO LAB BLOOD ORDERABLES Final Resul t [facility] [address] [place] [address] * TBH CREATININE (01/08/2025 8:35 AM EDT) CREATININE 0.63 0.55 - 1.02 mg/dL TBH TBH EGFR-AF BRUNEIAN >60 >=60 mL/min/1.7 3m 2 TBH TBH EGFR-NON AF BRUNEIAN >60 >=60 mL/min/1.7 3m 2 TBH 01/08/2025 8:35 AM EDT 01/08/2025 8:39 AM EDT Narrative [facility] - 01/08/2025 8:49 AM EDT us Maria Helder DO [facility] Final Result [facility] * (ABNORMAL) ALL CBC WITH AUTO DIFF [...] DO [facility] Final Result Performing Organization Address [facility]/ZIP Co de Phone Number [facility] * ALL BUN (01/08/2025 8:35 AM EDT) BLOOD UREA NITROGEN 8.0 7.0 - 18.0 mg/dL [facility] 01/08/2025 8:35 AM EDT 01/08/2025 8:39 AM EDT Narrative [facility] - 01/08/2025 8:49 AM EDT Maria Helder DO [facility] Final Result Performing Organization Address [facility] Co de Phone Number [facility] * [...] DO [facility] Final Result Performing Organization Address [facility]/ZIP Co de Phone Number [facility] * (ABNORMAL) TBH UA (CLEAN/CATCH) LEG BREAKER/MICRO IF IND. (01/08/2025 8:05 AM EDT) COLOR [...] DO [facility] Final Result Performing Organization Address [facility]/ZIP Co de Phone Number [facility] * GLUCOSE 1 HOUR (01/06/2025 10:42 AM EDT) GLUCOSE 1 HOUR 124 <130 mg/dL [facility] 01/06/2025 10:4 2 AM EDT 01/06/2025 10:43 AM EDT Narrative [facility] - 01/06/2025 11:08 AM EDT Priscilla SRIVASTAVA LAB BLOOD ORDERABLES Final Resul t Performing Organization Address [facility]/ZIP Co de Phone Number [facility] from Last 3 Months Insurance [employer] [facility] Care Teams Keg Raiser Relationship Specialty Start Date End Date Sarah Lopez DO [address] [place] [address] Referring Physician Emergency Medicine 02/18/23
--- OUTSIDE RECORDS SUMMARY | 2025-03-10 19:31 | XMS_ITS | Encounter Summary ---
Author Organization [facility] Address [address] [place] [address] Care Team Providers Care Statistics Intern Name Role Phone Sarah Lopez DO Unavailable [phone] Encounter Details Date Type Department Care Team (Late st Contact Info) Description 01/20/[address] [facility] OB [address] [place] [address] Malcolm Pendleton [address] Mary Garcia, [place] [address] Social History Tobacco Use Types Packs/Day Years [...] AM EDT Routine [facility] [address] [facility] [address] Priscilla Warren PA [address] [place], [facility] 11/19/2025 10:50 AM EST Office Visit [facility] [address] [facility] [address] [place] [address] Kayleigh Chung APRN-BIT TAPPER [address] [address] documented as of this encounter Visit Diagnoses Not on filedocumented in this encounter Care Teams Statistics Intern Relationship Specialty Start Date End Date Sarah Lopez DO [address] [place] [address] Referring Physician Emergency Medicine 02/18/23 documented as of this encounter
--- OUTSIDE RECORDS SUMMARY | 2025-03-10 19:31 | XMS_ITS | Encounter Summary ---
Author Organization [facility] Address [address] [place] [address] Care Team Providers Care Spool Maker Name Role Phone Sarah Lopez DO Unavailable [phone] Encounter Details Date Type Department Care Team (Late st Contact Info) Description 12/16/2024 Abstract [facility] OB [address] [address] Malcolm Pendleton [address] Mary Garcia, [place] [address] Social History Tobacco Use Types Packs/Day Years [...] AM EDT Routine [facility] BCP OB [address] [facility] [place] [address] Priscilla Warren PA [address] [place], [facility]11 11/19/2025 10:50 AM EST Office Visit [facility] [address] [facility] [address] [place] [address] Kayleigh Chung APRN-BIN PILER [address] [address] documented as of this encounter Visit Diagnoses Not on filedocumented in this encounter Care Teams Spool Maker Relationship Specialty Start Date End Date Sarah Lopez DO [address] [place] [address] Referring Physician Emergency Medicine 02/18/23 documented as of this encounter
--- OUTSIDE RECORDS SUMMARY | 2025-03-10 19:31 | XMS_ITS | Encounter Summary ---
Author Organization [facility] Address [address] [place] [address] Care Team Providers Care Assistant Scientist Name Role Phone Sarah Lopez DO Unavailable [phone] Encounter Details Date Type Department Care Team (Late st Contact Info) Description 11/21/2024 Abstract [facility] OB [address] [place] [address] Malcolm Pendleton [address] [facility] [address] [facility] [address] Mary Garcia, [place] [address] Social History Tobacco Use Types Packs/Day Years [...] AM EDT Routine [facility] BCP OB [address] [facility] [place] [address] Priscilla Warren PA [address] [place], [facility] 11/19/2025 10:50 AM EST Office Visit [facility] [address] [facility] [address] [place] [address] Kayleigh Chung APRN-INFORMATICS ANALYST [address] [address] documented as of this encounter Visit Diagnoses Not on filedocumented in this encounter Care Teams Assistant Scientist Relationship Specialty Start Date End Date Sarah Lopez DO [address] [place] [address] Referring Physician Emergency Medicine 02/18/23 documented as of this encounter
--- OUTSIDE RECORDS SUMMARY | 2025-03-10 19:32 | XMS_ITS | Encounter Summary ---
Author Organization [facility] Address [address] [place] [address] Care Team Providers Care Guest Specialist Name Role Phone Sarah Lopez DO Unavailable [phone] Encounter Details Date Type Department Care Team (Late st Contact Info) Description 01/27/2025 Abstract [facility] OB [address] [place] [address] Malcolm Pendleton [address] [facility] [address] Mary Garcia, [place] [address] Social History Tobacco Use Types Packs/Day Years [...] AM EDT Routine [facility] OB [address] [facility] [place] [address] Priscilla Warren PA [address] [place], [facility] 11/19/2025 10:50 AM EST Office Visit [facility] [address] [facility] [address] [place] [address] Kayleigh Chung APRN-LEGAL COORDINATOR [address] [address] documented as of this encounter Visit Diagnoses Not on filedocumented in this encounter Care Teams Guest Specialist Relationship Specialty Start Date End Date Sarah Lopez DO [address] [place] [address] Referring Physician Emergency Medicine 02/18/23 documented as of this encounter
--- OUTSIDE RECORDS SUMMARY | 2025-03-10 19:32 | XMS_ITS | Encounter Summary ---
Author Organization [facility] Address [address] [place] [address] Care Team Providers Care Senior Salesforce Developer Name Role Phone Sarah Lopez DO Unavailable [phone] Encounter Details Date Type Department Care Team (Late st Contact Info) Description 03/10/2025 Bamboo flowsheet [facility] OB [address] [facility] [place] [address] Malcolm Pendleton [address] Mary Garcia, [place] [address] Social History Tobacco Use Types Packs/Day Years [...] AM EDT Routine [facility] BCP OB [address] [facility] [place] [address] Priscilla Warren PA [address] [place] [address] 11/19/2025 10:50 AM EST Office Visit [facility] [address] [facility] [address] [place] [address] Kayleigh Chung, DEVELOPER ADVISOR-CRATE OPENER [address] [facility] 350 [place] [address] documented as of this encounter Visit Diagnoses Not on filedocumented in this encounter Care Teams Senior Salesforce Developer Relationship Specialty Start Date End Date Sarah Lopez DO [address] [place] [address] Referring Physician Emergency Medicine 02/18/23 documented as of this encounter
--- OUTSIDE RECORDS SUMMARY | 2025-03-10 19:32 | XMS_ITS | Encounter Summary ---
Author Organization [facility] Address [address] [place] [address] Care Team Providers Care Periodontist Name Role Phone Sarah Lopez DO Unavailable [phone] Encounter Details Date Type Department Care Team (Late st Contact Info) Description 11/21/2024 External Result Encounter [facility] BCP OB [address] [place] [address] Maria Pendleton DO [address] [place], [facility]11 Social History Tobacco Use Types Packs/Day [...] [address] Priscilla Warren PA [address] [place] [address] 11/19/2025 10:50 AM EST Office Visit [facility] [address] [place] [address] [place] [address] Kayleigh Chung, PHLEBOTOMIST-PAINT TINTER [address] [place] [address] [place] [address] documented as of this encounter Procedures Procedure Name Priority Date/Time Associated Diagnosis Comments US OB 14+ WEEKS ANATOMY SCAN 11/21/2024 3:40 PM EST documented in this encounter Results * US OB 14+ weeks anatomy scan (11/21/2024 3:40 PM EST) Anatomical Region Laterality Modality Body Ultrasound 11/21/2024 3:40 PM EST Narrative 11/21/2024 3:40 PM EST THIS EXAM WAS PERFORMED AT [facility] NAME: MARIAN HUSAIN : 1990 SEX: F Accession Number: [id number] ORDERING PHYSICIAN: HENNY MONTGOMERY REFERRING PHYSICIAN: MARIA PENDLETON Coding ----- --------- Procedures 90249: Ultrasound, uterus, real time with image documentation, and maternal evaluation plus detailed anatomic examination, transabdominal approach;single or first gestation 02785: Transvaginal Ultrasound (OB) Indication ----- --------- Screening [...] 0 lb 13 oz EFW by Hadlock ([id number]-FL) Head / Face / Neck Biometry: Cephalic index 0.73 5% Nicolaides Brush Holder Assembler 4.4 mm CM 4.2 mm 20% Nicolaides [...] Heart / Thorax RVOT view. LVOT view. 8-yzpmbc-nplbpnk view. Bicaval view. Extremities / Left hand. [...] Right choroid plexus cyst is identified. Per [facility] guidelines, isolated chorioid plexus cysts (CPCs) are a normal variant of no clinical importance with no indication for follow-up ultrasound imaging or evaluation in the setting of low risk cell free DNA screening. Double right renal artery identified. Recommendations ----- --------- Please see [facility] documentation from today. The patient is scheduled in four to six week(s) to complete anatomic survey. Subsequent follow up or other follow up as clinically determined by primary OB provider unless otherwise specified by [facility]. Results forwarded to ordering provider so they can follow up with the patient as necessary. The copy-to physician of this order is MARIA Brito The ordering physician of this order is HENNY Pineda Procedure Note Radiology, Radiologist, MD - 11/21/2024 THIS EXAM WAS PERFORMED AT [facility] NAME: MARIAN HUSAIN : 1990 SEX: F Accession Number: [id number] ORDERING PHYSICIAN: HENNY MONTGOMERY REFERRING PHYSICIAN: MARIA PENDLETON Coding ----- --------- Procedures 11617: Ultrasound, uterus, real time with imagedocumentation, and maternal evaluation plus detailed anatomic examination, transabdominalapproach;single or first gestation 32098: Transvaginal Ultrasound (OB) Indication ----- --------- Screening [...] 0 lb 13 oz EFW by Hadlock ([id number]-[id number]-FL) Head / Face / Neck Biometry: Cephalic index 0.73 5% Nicolaides Brush Holder Assembler 4.4 mm CM 4.2 mm 20% Nicolaides [...] Heart / Thorax RVOT view. LVOT view. 6-qdszmy-nxlsydo view. Bicavalview. Extremities / Left hand. Skeleton [...] Right choroid plexus cyst is identified. Per [facility] guidelines, isolated chorioid plexus cysts (CPCs) are a normalvariant of no clinical importance with no indication for follow-up ultrasound imaging or evaluation in the setting of lowrisk cell free DNA screening. Double right renal artery identified. Recommendations ----- --------- Please see [facility] documentation from today. The patient is scheduled in four to six week(s) to complete anatomicsurvey. Subsequent follow up or other follow up as clinically determined byprimary OB provider unless otherwise specified by [facility]. Results forwarded to ordering provider so they can follow up with thepatient as necessary. The copy-to physician of this order is MARIA Brito The ordering physician of this order is HENNY Pineda us Maria Pendleton DO IMG OB US PROCEDURES Final Resul t documented in this encounter Visit Diagnoses Not on filedocumented in this encounter Care Teams Periodontist Relationship Specialty Start Date End Date Sarah Lopez DO [address] [place] [address] Referring Physician Emergency Medicine 02/18/23 documented as of this encounter
--- OUTSIDE RECORDS SUMMARY | 2025-03-10 19:32 | XMS_ITS | Encounter Summary ---
Author Organization [facility] Address [address] [place] [address] Care Team Providers Care Documentation Designer Name Role Phone Sarah Lopez DO Unavailable [phone] Encounter Details Date Type Department Care Team (Late st Contact Info) Description 12/17/2024 Abstract [facility] OB [address] [place] [address] Malcolm Pendleton [address] Mary Garcia, [place] [address] Social History Tobacco Use Types Packs/Day Years [...] AM EDT Routine [facility] BCP OB [address] [place] [address] Priscilla Warren PA [address] [place], [facility]11 11/19/2025 10:50 AM EST Office Visit [facility] DERM [address] [facility] [address] [place] [address] Kayleigh Chung APRN-INDUSTRIAL CONTROLS TECHNICIAN [address] [address] documented as of this encounter Visit Diagnoses Not on filedocumented in this encounter Care Teams Documentation Designer Relationship Specialty Start Date End Date Sarah Lopez DO [address] [place] [address] Referring Physician Emergency Medicine 02/18/23 documented as of this encounter
--- OUTSIDE RECORDS SUMMARY | 2025-03-10 19:32 | XMS_ITS | Encounter Summary ---
Author Organization [facility] Address [address] [place] [address] Care Team Providers Care Tucking Machine Operator Name Role Phone Sarah Lopez DO Unavailable [phone] Encounter Details Date Type Department Care Team (Late st Contact Info) Description 11/24/2024 Abstract [facility] OB [address] [facility] [place] [address] Malcolm Pendleton [address] [facility] [address] Mary Garcia, [place] [address] Social History Tobacco Use Types Packs/Day Years [...] AM EDT Routine [facility] BCP OB 102 [facility] [place] [address] Priscilla Warren PA [address] [place], [facility]11 11/19/2025 10:50 AM EST Office Visit [facility] DER[facility] [address] [facility] [address] [place] [address] Kayleigh Chung APRN-HEAD WORKER [address] [address] documented as of this encounter Visit Diagnoses Not on filedocumented in this encounter Care Teams Tucking Machine Operator Relationship Specialty Start Date End Date Sarah Lopez DO [address] [place] [address] Referring Physician Emergency Medicine 02/18/23 documented as of this encounter
--- OUTSIDE RECORDS SUMMARY | 2025-03-10 19:32 | XMS_ITS | Clinical Summary ---
Author Organization [facility] Address [id number] [address] [place] [address] Care Team Providers Care Returned Goods Inspector Name Role Phone No Pcp, No Pcp [...] Team Description 02/26/2025 Telephone Maternal- Medicine at [facility] [address] [place] [address] Caroline Chavira RN 02/04/2025 Telephone Maternal Medicine [place] [address] [facility] [address] [place] [address] [place] [address] Josey Valentine 01/28/2025 Orders Only Maternal- Medicine at [facility] [address] [place] [address] Marci Coppola CMA Thalassemia alpha carrier (Primary Dx); Family history of sickle cell trait; Family history of DVT; History of anemia; Choroid plexus cyst of fetus affecting care of mother, antepartum, fetus 1; Abnormal genetic test during ; Previous delivery affecting , antepartum; History of pre-eclampsia in prior , currently in first trimester 01/28/2025 Telephone Maternal Medicine [place] [address] [facility] [place] [address] Josey Valentine 01/27/2025 9:56 AM EDT - 01/27/2025 11:59 PM EDT Hospital Encounter [facility] - Ultrasound [address] [place] [address] History of anemia Discharge Disposition: Home 01/27/2025 Travel 01/13/2025 9:00 AM EDT - 01/13/2025 11:59 PM EDT Hospital Encounter [facility] - Ultrasound [address] [place] [address] Alpha thalassemia silent carrier Discharge Disposition: Home 01/13/2025 Travel 12/16/2024 8:46 AM EDT - 12/16/2024 11:59 PM EDT Hospital Encounter [facility] - Ultrasound [address] [place] [address] Alpha thalassemia silent carrier Discharge Disposition: Home 12/16/2024 Travel 12/12/2024 9:00 AM EDT Telemedicine Maternal- Medicine at [facility] [address] [place] [address] Torey Montgomery MD Allen Jo P, LGC Thalassemia alpha carrier (Primary Dx); Abnormal genetic test during ; Family history of sickle cell trait; Family history of DVT 12/12/2024 Travel 12/09/2024 Telephone Maternal- Medicine at [facility] [address] [place] [address] Natalie Díaz, ROMEO 12/09/2024 Orders Only Maternal- Medicine at [facility] [address] [place] [address] Natalie Díaz, RN Choroid plexus cyst of fetus affecting care of mother, antepartum, fetus 1 12/09/2024 Orders Only Maternal- Medicine at [facility] [address] [place] [address] Natalie Díaz, RN Thalassemia alpha carrier (Primary Dx) 12/08/2024 Telephone Maternal- Medicine at [facility] [address] [place] [address] Josey Valentine 12/08/2024 Documentation Maternal- Medicine at [facility] [address] [place] [address] Torey Montgomery MD from Last 3 Months [...] Procedure Name Priority Date/Time Associated Diagnosis Comments [facility] OB FOLLOW-UP, 1 FETUS Routine 01/27/2025 10:46 AM EDT History of anemia [facility] LMTD OB, 1 OR MORE FETUS Routine 01/13/2025 9:29 AM EDT Alpha thalassemia silent carrier US MFM LMTD OB, 1 OR MORE FETUS Routine 12/16/2024 9:44 AM EDT Alpha thalassemia silent carrier from Last 3 Months Results * US MFM OB FOLLOW-UP, 1 FETUS (01/27/2025 10:46 AM EDT) Only the most recent of3 resultswithin the time period is included. Anatomical Region Laterality Modality OB-WATCH INSPECTOR Ultrasound 01/27/2025 10:0 9 AM EDT Narrative 01/27/2025 11:10 AM EDT NAME: MARIAN HUSAIN : 1990 SEX: F Accession Number: [id number] ORDERING PHYSICIAN: TOREY MONTGOMERY REFERRING PHYSICIAN: MARIA HARTLEY Coding ----- --------- Procedures 36559: Follow-up Ultrasound, per fetus 87802: Doppler velocimetry, ; middle cerebral artery Indication [...] EFW (oz) 3 oz EFW by: Hadlock ([id number]-PE-GC-FL) Extended Tibia 48.0 mm 29w 0d 16% Osiel Seam Press Operator 3.6 mm CM 5.9 mm 19% [...] Heart/Thorax: 4-chamber view. RVOT view. LVOT view. 4-lbrpki-jswnoho view. Situs. Aortic arch view. Bicaval view. [...] PI 1.99 30% [place] RI 0.84 71% [facility] PS 50.72 cm/s PS 1.24 [...] HUSAIN : 1990 SEX: F Accession Number: [id number] ORDERING PHYSICIAN: TOREY MONTGOMERY REFERRING PHYSICIAN: MARIA HARTLEY Coding ----- --------- Procedures 29071: Follow-up Ultrasound, per fetus 22583: Doppler velocimetry, ; middle cerebral artery Indication [...] EFW (oz) 3 oz EFW by: Hadlock (ANK-DF-OM-FL) Extended Tibia 48.0 mm 29w 0d 16% Osiel Seam Press Operator 3.6 mm CM 5.9 mm 19% [...] Heart/Thorax: 4-chamber view. RVOT view. LVOT view. 9-luqglf-svxhbho view.Situs. Aortic arch view. Bicaval view. Ductal [...] [facility] ORDERABLES Final Resul t from Last 3 Months Insurance [employer] [place] [employer] Care Teams Returned Goods Inspector Relationship Specialty Start Date End Date No Pcp, No Pcp KRISTOPHER Mccormick [phone] PCP - General Family Medicine 02/21/24
--- OUTSIDE RECORDS SUMMARY | 2025-03-10 19:32 | XMS_ITS | Encounter Summary ---
Author Organization [facility] Address [address] [place] [address] [place] [address] Care Team Providers Care Employment Coordinator Name Role Phone Sarah Lopez DO Unavailable [phone] Encounter Details Date Type Department Care Team (Late st Contact Info) Description 12/29/2024 Abstract [facility] OB [address] [place] [address] Malcolm Pendleton [address] [facility] [address] Mary Garcia, [place] [address] Social History Tobacco Use Types Packs/Day Years [...] AM EDT Routine [facility] BCP OB [address] [facility] [place] [place] [address] Priscilla Warren PA [address] [place], [facility]11 11/19/2025 10:50 AM EST Office Visit [facility]ERM [address] [facility] [address] [place] [address] Kayleigh Chung APRN-CIVIL TRANSPORTATION ENGINEER [address] [address] documented as of this encounter Visit Diagnoses Not on filedocumented in this encounter Care Teams Employment Coordinator Relationship Specialty Start Date End Date Sarah Lopez DO [address] [place] [address] Referring Physician Emergency Medicine 02/18/23 documented as of this encounter
--- OUTSIDE RECORDS SUMMARY | 2025-03-10 19:33 | XMS_ITS | Encounter Summary ---
Author Organization [facility] Address [address] [place] [address] Care Team Providers Care Zipper Cutter Name Role Phone Sarah Lopez DO Unavailable [phone] Encounter Details Date Type Department Care Team (Late st Contact Info) Description 09/15/2024 Abstract [facility] OB [address] [facility] [place] [address] Malcolm Pendleton [address] Mary Garcia, [place] [address] Social History Tobacco Use Types Packs/Day Years [...] Routine [facility] BCP OB [address] [facility] [place] [address] Priscilla Warren PA [address] [place], [facility] 11/19/2025 10:50 AM EST Office Visit [facility] DERM [address] [facility] [address] [place] [address] Kayleigh Chung APRN-VECTOR CONTROL ASSISTANT [address] [address] documented as of this encounter Visit Diagnoses Not on filedocumented in this encounter Care Teams Zipper Cutter Relationship Specialty Start Date End Date Sarah Lopez DO [address] [place] [address] Referring Physician Emergency Medicine 02/18/23 documented as of this encounter
--- OUTSIDE RECORDS SUMMARY | 2025-03-10 19:33 | XMS_ITS | Encounter Summary ---
Author Organization [facility] Address [address] [place] [address] Care Team Providers Care Global Security Architect Name Role Phone Sarah Lopez DO Unavailable Encounter Details Date Type Department Care Team (Late st Contact Info) Description 08/27/2024 Clinisync Result Encounter NOMS External Department Unsolicited Maria Pendleton DO [address] [place], [facility]11 Social History Tobacco Use Types Packs/Day [...] AM EDT Routine [facility] BCP OB [address] [facility] [place] [address] Priscilla Wraren PA [address] [facility] [place] [address] 11/19/2025 10:50 AM EST Office Visit [facility]ER[facility] [address] [place] [address] [place] [address] SariahKayleigh mares, CROSS TIE CUTTER-SUPERVISOR DIAGNOSTIC [address] [place] [address] [place] [address] documented as of this encounter Procedures Procedure Name Priority Date/Time Associated Diagnosis Comments US OB TRANSVAGINAL 08/27/2024 4: 27 AM EST documented in this encounter Results * US OB TRANSVAGINAL (08/27/2024 4:27 AM EST) Anatomical Region Laterality Modality Other 08/27/2024 4:27 AM EST Narrative 08/27/2024 4:30 [place] [address] Ultrasound Report Signed Patient: LEANDRA VALENTIN MR#: [id number] : 1990 Acct:[id number] Age/Sex: 34 / F ADM Date: 08/26/24 Loc: [facility] Attending Dr: Maria Pendleton D.O. Ordering Physician: Maria Pendleton D.O. Date of Service: 08/26/24 Procedure(s): US OB transvaginal Accession Number(s): [id number] cc: Maria Pendleton D.O.; Physician,Non-Staff M.DJorge The [address] [address] Patient Name: LEANDRA VALENTIN MRN: [id number] date: 1990 Sex: F Assigned Patient Location: [facility] Current Patient Location: Accession/Order Number: [id number] Exam Date: 08/26/2024 08:59 Report Date: 08/27/2024 [...] M.D. Signed By: 08/27/24429 DD/ 6 TD/TT: Site Controller: Procedure Note Radiology, Radiologist, MD - 08/27/2024 [place] [address] Ultrasound Report Signed Patient: LEANRDA VALENTIN GMR#: [id number] : 1990Acct:[id number] Age/Sex: 34 / FADM Date: 08/26/24 Loc: [facility] Attending Dr: Maria Pendleton D.O. Ordering Physician: Maria Pendleton D.O. Date of Service: 08/26/24 Procedure(s): US OB transvaginal Accession Number(s): [id number] cc: Maria Pendleton D.O.; Physician,Non-Staff M.DJorge The [place] [id number] Patient Name: LEANDRA VALENTIN MRN: [id number] date: 1990 Sex: F Assigned Patient Location: [facility] Current Patient Location: Accession/Order Number: [id number] Exam Date: 08/26/2024 08:59 Report Date: 08/27/2024 [...] Miguel M.D. Signed By:08/27/24429 DD/ 6 TD/TT: Site Controller: us Maria Pendleton DO [facility] Final Result documented in this encounter Visit Diagnoses Not on filedocumented in this encounter Care Teams Global Security Architect Relationship Specialty Start Date End Date Sarah Lopez DO [address] [place] [address] Referring Physician Emergency Medicine 02/18/23 documented as of this encounter
--- OUTSIDE RECORDS SUMMARY | 2025-03-10 19:33 | XMS_ITS | Encounter Summary ---
Author Organization [facility] Address [address] [place] [address] Care Team Providers Care Civil Rights Attorney Name Role Phone Sarah Lopez DO Unavailable [phone] Encounter Details Date Type Department Care Team (Late st Contact Info) Description 08/26/2024 Abstract [facility] OB [address] [place] [address] Malcolm Pendleton [address] Mary Garcia, [place] [address] Social History Tobacco Use Types Packs/Day Years [...] AM EDT Routine [facility] BCP OB 102 [facility] [place] [address] Priscilla Warren PA [address] [place] [place], [facility]11 11/19/2025 10:50 AM EST Office Visit [facility] DERM [address] [facility] [address] [place] [address] Kayleigh Chung APRN-NUT BLANKER OPERATOR [address] [address] documented as of this encounter Visit Diagnoses Not on filedocumented in this encounter Care Teams Civil Rights Attorney Relationship Specialty Start Date End Date Sarah Lopez DO [address] [place] [address] Referring Physician Emergency Medicine 02/18/23 documented as of this encounter
--- OUTSIDE RECORDS SUMMARY | 2025-03-10 19:33 | XMS_ITS | Encounter Summary ---
Author Organization [facility] Address [address] [place] [address] Care Team Providers Care Office Machine Mechanic Name Role Phone Sarah Lopez DO Unavailable [phone] Encounter Details Date Type Department Care Team (Late st Contact Info) Description 02/19/2024 Clinisync Result Encounter NOMS External Department Unsolicited Maria Pendleton DO [address] [place] [address] Social History Tobacco Use Types Packs/Day Years [...] AM EDT Routine [facility] BCP OB [address] [facility] [place] [place] [address] Priscilla Warren PA [address] [place] [address] 11/19/2025 10:50 AM EST Office Visit [facility] DERM [address] [place] [address] Kayleigh Chung, MOLD PULLER-INSURANCE AUDITOR [address] [place] [address] documented as of this encounter Procedures Procedure Name Priority Date/Time Associated Diagnosis Comments US PELVIS TRANSVAGINAL 02/19/2024 12:27 PM EDT documented in this encounter Results * US PELVIS TRANSVAGINAL (02/19/2024 12:27 PM EDT) Anatomical Region Laterality Modality Other 02/19/2024 12:2 7 PM EDT Narrative 02/19/2024 12:29 PM EDT [address] [address] Ultrasound Report Signed Patient: LEANDRA VALENTIN MR#: [id number] : 1990 Acct:[id number] Age/Sex: 33 / F ADM Date: 02/19/24 Loc: [facility] Attending Dr: Maria Pendleton D.O. Ordering Physician: Maria Pendleton D.O. Date of Service: 02/19/24 Procedure(s): US pelvis transvaginal Accession Number(s): [id number] cc: Maria Pendleton D.O.; Physician,Non-Staff M.D. [address] [address] Patient Name: LEANDRA VALENTIN MRN: [id number] date: 1990 Sex: F Assigned Patient [facility]: [facility] Current Patient Location: [facility] Accession/Order Number: [id number] Exam Date: 02/19/2024 11:18 Report Date: 02/19/2024 [...] Signed By: 02/19/24 1229 DD/ 1227 TD/TT: Sole Stitcher Hand: Procedure Note Radiology, Radiologist, MD - 02/19/2024 [place] [address] Ultrasound Report Signed Patient: LEANDRA VALENTIN GMR#: [id number] : 1990Acct:[id number] Age/Sex: Date: 02/19/24 Loc: [facility] Attending Dr: Marai Pendleton D.O. Ordering Physician: Maria Pendleton D.O. Date of Service: 02/19/24 Procedure(s): US pelvis transvaginal Accession Number(s): [id number] cc: Maria Pendleton D.O.; Physician,Non-Staff Kacey The [place] [id number] Patient Name: LEANDRA VALENTIN MRN: [id number] date: 1990 Sex: F Assigned Patient Location: [facility] Current Patient Location: [facility] Accession/Order Number: [id number] Exam Date: 02/19/2024 11:18 Report Date: 02/19/2024 [...] M.D. Signed By:02/19/24 1229 DD/ 1227 TD/TT: Sole Stitcher Hand: us Maria Helder DO [facility] Final Result documented in this encounter Visit Diagnoses Not on filedocumented in this encounter Care Teams Office Machine Mechanic Relationship Specialty Start Date End Date Sarah Lopez DO [address] [place] [address] Referring Physician Emergency Medicine 02/18/23 documented as of this encounter
== END 2025-03-10 19:20 | disposition home or self-care (01) ==
LOC: LAB 19:19
PROVIDERS: Visit Provider Obstetrics & Gynecology
DX: Z34.93 Encounter for supervision of normal pregnancy, unspecified, third trimester (principal); Z3A.36 36 weeks gestation of pregnancy
CPT/HCPCS: 87081

== ENCOUNTER 2025-03-12 11:05 | Outpatient (OUT) | payer OTHER, MEDICAID, SELFPAY ==
--- NOTE | 2025-03-12 11:09 | US_ITS ---
The [address] [address] Patient Name: LISHA FONSECA MRN: [facility]:[id number] date: 1990 Sex: F Assigned Patient Location: US Current Patient Location: Accession/Order Number: [id number] Exam Date: 03/12/2025 11:52 Report Date: 03/12/2025 11:54 At the request of: MARIA HARTLEY DO Procedure: US OB BPP w non-stress BIOPHYSICAL PROFILE: CLINICAL INFORMATION: H/O DELIVERY O09.299 COMPARISON: 03/05/2025 There is a single live intrauterine gestation in cephalic presentation. The reported gestational age is 36 weeks 4 days. The heart rate measures 148 beats per minute. FINDINGS: TONE: 1 or more episodes of activity extension and flexion of extremity or opening and closing of the hand [Y] 2/2 GROSS BODY MOVEMENTS: 3 or more discrete body or limb movements [Y] 2/2 BREATHING MOVEMENTS: 1 or more episodes of breathing lasting at least 30 seconds [Y] 2/2 VIDA: A single deepest vertical pocket of amniotic fluid greater than 2 cm [Y] 2/2 VIDA: 20.4 cm. This is in upper normal range. Total score: 8/8 US/ OB BPP w non-stress IMPRESSION: NORMAL BIOPHYSICAL PROFILE Impression dictated by: Michell Miller M.D. 03/12/2025 11:54 AM Dictation Location: [place] [address] Electronically authenticated by: [id number] Y Date: 03/12/2025 11:54
[2025-03-12 11:42] VITALS: BP 125/66; PULSE 76
== END 2025-03-12 12:13 | disposition home or self-care (01) ==
LOC: US 11:05 → FBC 11:25
PROVIDERS: Visit Provider Obstetrics & Gynecology
DX: O09.293 Supervision of pregnancy with other poor reproductive or obstetric history, third trimester (principal); Z3A.36 36 weeks gestation of pregnancy
CPT/HCPCS: 76818

== ENCOUNTER 2025-03-17 08:09 | Outpatient (OUT) | payer OTHER, MEDICAID, SELFPAY ==
--- OUTSIDE RECORDS SUMMARY | 2022-11-20 08:27 | XMS_ITS | Continuity of Care Document ---
Author Organization [facility] Address [address] [place] [address] Phone Care Team Providers Care Bird Sitter Name Role Phone Dawson Hernandez Unavailable Unavailable [...] Diagnoses Date Provider Providers Copied on Encounter [facility], [address] [place], [place], [address], [place] tel:[phone] [facility] No Information Nov-0 3 Vida Conrad. [address] [place], [place], [address] , [place]. tel:[phone] [facility], [address] [place], [place], [address], [place] tel:[phone] [facility] No Information Elinaruchi Dawson. [address] [place], [place], [address] , [place]. tel: [phone] PREV VISIT, NEW, AGE 18-39 [facility], [address] [place], [place], [address], [place] tel:[phone] [facility] establish care (chief complaint)b irth control (chief complaint) Gynecological ExaminationOther specified contraceptive management 4 Prashanth [facility] Maggy. [address] [place], [place], [address] , [place]. tel: [phone] Family History Family Member Type Diagnosis Age [...] Insurance type Covered democrat ID Authoriza tion(s) [facility] CI [id number] Medicaid Wrap - [facility] [place] [id number] [facility] [id number] Medicaid Wrap - [facility] [place] [id number] Social History Type Description Quantity Date Captured [...]
--- OUTSIDE RECORDS SUMMARY | 2024-07-23 09:30 | XMS_ITS ---
Author Organization [facility] Address [address] [place] [address] Care Team Providers Care Tenderizer Tender Name Role Phone Yudelka Lopez Primary Care Provider [phone] Leroy Salazar Unavailable [phone] REASON FOR VISIT cough, congestion Encounters Encounter Location Date Provider Diagnosis [facility] [address] [place] [address] 07/23/2024 Yudelka Lopez Plan Of Treatment No Information Progress Notes * LISHA FONSECA GDOB: [birth year] (34 yo F)Acc No.[id number]:07/23/2024 PROGRESS NOTES Patient: ISAAK MALCOLMLEY Moe Provider: Rowan Lopez :1990 A ge:34 Y S ex:Female Date:07/23/2024 Address:[address] [facility], [place] [id number] Subjective: * Chief Complaints: * 1 . Cough, congestion. * Medical History: Objective: * Vitals: Assessment: Plan: * Treatment: * Images: * Electronic signature of Howard Lopez CNP on 03/17/2025 at 08:13 AM EDT Sign off status: Pending * Provider: Rowan Lopez Date: 09/22/2023 Generated for Damon dailey/Timothy/eTbridget on: 0 03/17/2025 08:13 AM EDT
--- OUTSIDE RECORDS SUMMARY | 2024-11-28 05:20 | XMS_ITS ---
Author Organization [facility] Servic es Address [address] [facility] [place] [place] [address] Care Team Providers Care Sales Engagement Executive Name Role Phone Yudelka Lopez Primary Care Provider Dr. Leroy Salazar Unavailable [phone] REASON FOR VISIT new pt Encounters Encounter Location Date Provider Diagnosis [facility] Services [address] [place] [address] 11/28/2024 Leroy Salazar Plan Of Treatment No Information Progress Notes * LISHA FONSECA GDOB: [birth year] (34 yo F)Acc No.[id number]:11/28/2024 Patient: ISAAK MALCOLMLEY Moe Provider: Deb Salazar DDS :1990 A ge:34 Y S ex:Female Date:11/28/2024 Address:[address] [place] [address], [address], [id number] Pcp:Yudelka Lopez Subjective: * Chief Complaints: * 1 . New pt. * Medical History: Objective: * Vitals: Assessment: Plan: * Treatment: * Images: * Electronic signature of Dr. Leroy Salazar , DMD on 03/17/2025 at 08:13 AM EDT Sign off status: Pending * Provider: Deb Salazar DDS Date: 11/28/2024 Generated for Printi ng/Faxing/eTransmitting on: 03/17/2025 08:13 AM EDT
--- OUTSIDE RECORDS SUMMARY | 2025-03-10 11:10 | XMS_ITS | Encounter Summary ---
Author Organization [facility] Address [address] [place] [address] Care Team Providers Care Assistant Manager Of Operations Name Role Phone Sarah Lopez DO Unavailable [phone] Encounter Details Date Type Department Care Team (Late st Contact Info) Description 03/10/2025 11:10 AM EDT Routine [facility] OB [address] [place] [address] Malcolm Pendleton DO [address] Mary Garcia, [place] [address] Third trimester ([facility]) Social History Tobacco Use Types Packs/Day [...] Sign Reading Time Taken Comments Blood Pressure 118/70 03/10/2025 11:34 AM EDT Pulse - - Temperature - - Respiratory Rate - - Oxygen Saturation - - Inhaled Oxygen Concentration - - Weight 94.1 kg (207 lb 8 oz) 03/10/2025 11:34 AM EDT Height - - Body Mass Index 36.76 02/19/2024 10:46 AM EDT documented in this encounter Progress Notes * Michell Patten LPN - 03/10/2025 11:10 AM EDT Reason for Appointment: Patient ID: Leandra Valentin is a 34 y.o. female who presents for No chief complaint on file. Patient presents today for Return OB appointment. MEDICATIONS Current Outpatient Medications Medication Instructions amoxicillin (AMOXIL) 1,000 mg, 2 times daily ondansetron ODT (ZOFRAN-ODT) 4 mg, Oral, Every [...] Diagnosis Date Noted 10 weeks gestation of ([facility]) 09/11/2024 First trimester ([facility]) 09/11/2024 Resolved Ambulatory Problems Diagnosis Date Noted No Resolved Ambulatory Problems Past Medical History: Diagnosis Date Abnormal results of thyroid function studies Acid reflux 02/2017 Alpha thalassemia silent carrier Anemia Endometriosis Fibroid, uterine History of anemia History of hyperthyroidism Hypothyroidism Irregular menses Menometrorrhagia Nontoxic multinodular goiter Overweight (BMI 25.0-29.9) Syncope 06/2016 Varicella zoster Vitamin D deficiency HISTORY PAST MEDICAL HISTORY SOCIAL HISTORY Past Medical History: Diagnosis Date Abnormal results of thyroid function studies Acid reflux 02/2017 [facility] Alpha thalassemia silent carrier Anemia Endometriosis Fibroid, uterine History of anemia History of hyperthyroidism Hypothyroidism Irregular menses Menometrorrhagia Nontoxic multinodular goiter Overweight (BMI 25.0-29.9) Syncope 06/2016 [facility] Varicella zoster Vitamin D deficiency Social [...] nursing note reviewed. Exam conducted with a bank and savings securities trader present. Vitals: Estimated body mass index is 36.76 kg/m² as calculated from the following: Height as of 02/19/24: 5' 3 . Weight as of this encounter: 207 lb 8 oz. BP: 118/70 Patient's last menstrual period was 06/23/2024. ASSESSMENT & PLAN ICD-10-CM 1. Third trimester ([facility]) Z34.93 CULTURE, GROUP B STREP WITH SUSCEPTIBLITY CULTURE, GROUP B STREP WITH SUSCEPTIBLITY Patient is doing well but has complaints of being tired and having maternal discomfort due to . Patient verbalized frequent movement and was instructed to perform kick counts three times per day. labor precautions were given, LARC consent was signed/declined, and GBS was obtained. Orders Placed This Encounter Procedures CULTURE, GROUP B STREP WITH SUSCEPTIBLITY Follow Up: Patient is to return to office in 1 week for routine OB appointment Documented by Michell Patten LPN on behalf of: Malcolm Pendleton DO documented in this encounter Plan of Treatment Upcoming Encounters Date Type Department Care Team ([facility] st Contact Info) Description 03/17/2025 11:30 AM EDT Routine [facility] OB [address] [place] [address] Priscilla Warren PA [address] [place] [address] 11/19/2025 10:50 AM EST Office Visit [facility] [address] [place] [address] Kayleigh Chung APRN-BRANDING MACHINE OPERATOR [address] [place] [address] Scheduled Orders Name Type Priority Associated Diagnoses Orde r Schedule CULTURE, GROUP B STREP WITH SUSCEPTIBLITY Lab Routine Third trimester ([facility]) Expected: 03/10/2025, Expires: 03/10/2026 documented as of this encounter Visit Diagnoses Diagnosis Third trimester ([facility]) state, incidental documented in this encounter Care Teams Assistant Manager Of Operations Relationship Specialty Start Date End Date Sarah Lopez DO [address] [place] [address] Referring Physician Emergency Medicine 02/18/23 documented as of this encounter
--- OUTSIDE RECORDS SUMMARY | 2025-03-17 08:13 | XMS_ITS | Encounter Summary ---
Author Organization [facility] Address [address] [place] [address] Care Team Providers Care Rv Service Technician Name Role Phone Sarah Lopez DO Unavailable Encounter Details Date Type Department Care Team (Late st Contact Info) Description 03/05/2025 Clinisync Result Encounter [facility] External Department Unsolicited Maria Pendleton DO [address] Tita Garcia, [facility]11 Social History Tobacco Use Types Packs/Day [...] EDT Routine [facility] BCP OB [address] [facility] [place] [phone] Priscilla Warren PA [address] [facility] [place] [address] 11/19/2025 10:50 AM EST Office Visit [facility] [address] [place] [address] Kayleigh Chung, DIRECTOR OF DISTANCE LEARNING-ROAD EQUIPMENT OPERATOR [address] [place] [address] documented as of this encounter Procedures Procedure Name Priority Date/Time Associated Diagnosis Comments US OB BPP W NON-STRESS 03/05/2025 12:03 PM EDT documented in this encounter Results * US OB BPP W NON-STRESS (03/05/2025 12:03 PM EDT) Anatomical Region Laterality Modality Other 03/05/2025 12:0 3 PM EDT Narrative 03/05/2025 12:05 [place] [address] Ultrasound Report Signed Patient: LEANDRA VALENTIN MR#: [id number] : 1990 Acct:[id number] Age/Sex: 34 / F ADM Date: 03/05/25 Loc: [facility] 254-[address]: Maria Pendleton D.O. Ordering Physician: Maria Pendleton D.O. Date of Service: 03/05/25 Procedure(s): US OB BPP w non-stress Accession Number(s): [id number] cc: Maria Pendleton D.O.; Physician,Non-Staff M.DJorge [place] [id number] Patient Name: LEANDRA VALENTIN MRN: [facility]:[id number] date: 1990 Sex: F Assigned Patient Location: [facility] Current Patient Location: [facility] Accession/Order Number: [id number] Exam Date: 03/05/2025 12:01 Report Date: 03/05/2025 [...] Miller M.D. 03/05/2025 12:03 PM Dictation Location: [place] [address] Electronically authenticated by: [id number] Y Date: 03/05/2025 12:03 Dictated By: Michell Miller M.D. Signed By: 03/05/25 1205 DD/ 1203 TD/TT: Survey Project Manager: Procedure Note Radiology, Radiologist, - 03/05/2025 [place] [address] Ultrasound Report Signed Patient: LEANDRA VALENTIN GMR#: [id number] : 1990Acct:[id number] Age/Sex: 34 / FADM Date: 03/05/25 Loc: [facility] 254-[address]: Maria Pendleton D.O. Ordering Physician: Maria Pendleton D.O. Date of Service: 03/05/25 Procedure(s): US OB BPP w non-stress Accession Number(s): [id number] cc: Maria Pendleton D.O.; Physician,Non-Staff Kacey The [place] [id number] Patient Name: LEANDRA VALENTIN MRN: [facility]:[id number] date: 1990 Sex: F Assigned Patient Location: [facility] Current Patient Location: [facility] Accession/Order Number: [id number] Exam Date: 03/05/2025 12:01 Report Date: 03/05/2025 [...] Miller M.D. 03/05/2025 12:03 PM Dictation Location: [place] [address] Electronically authenticated by: [id number] Y Date: 512:03 Dictated By: Michell Miller M.D. Signed By:03/05/25 1205 DD/ 1203 TD/TT: Survey Project Manager: us Maria Pendleton DO [facility] Final Result documented in this encounter Visit Diagnoses Not on filedocumented in this encounter Care Teams Rv Service Technician Relationship Specialty Start Date End Date Sarah Lopez DO [address] [place] [address] Referring Physician Emergency Medicine 02/18/23 documented as of this encounter
--- OUTSIDE RECORDS SUMMARY | 2025-03-17 08:13 | XMS_ITS | Clinical Summary ---
Author Organization [facility] Address [address] [place] [address] Phone Care Team Providers Care Still Runner Name Role Phone Yudelka Lopez APRN-ALKYLATION OPERATOR Primary Care Provider + Social History [...] age to complete this topic HPV Vaccines (No Doses Required) Completed Hepatitis A Vaccines Aged Out No long [...] this topic Medical Devices Implanted Type Area Geodetic Advisor Device Identifier Shelf Expiration Date Model / Serial / Lot Mesh, Softmesh 3 X 6, Flat Case [id number] Implanted:Qty: 1 on 04/03/2022 by Sly Crocker MD MPH Mesh Abdomen DAVOL 05/14/2024 [id number] / / [id number] Description:Converted from [facility]. Please see archived information for full log information. Care Teams Still Runner Relationship Specialty Start Date End Date Yudelka Lopez, MITERING MACHINE OPERATOR-ALKYLATION OPERATOR [address] [place] [place] [address] PCP - General 01/20/23
--- OUTSIDE RECORDS SUMMARY | 2025-03-17 08:13 | XMS_ITS | Encounter Summary ---
Author Organization [facility] Address [address] [place] [address] Phone Care Team Providers Care Sparmaker Name Role Phone Yudelka Lopez Primary Care Provider + Encounter Details Date Type Department Care Team (Late st Contact Info) Description 03/31/[address] [facility] [address] [place] [address] Conversion, Onbase Social History Tobacco Use Types [...] on filedocumented in this encounter Care Teams Sparmaker Relationship Specialty Start Date End Date Yudelka Lopez APRN-CNP [address] [place] [address] PCP - General 01/20/23 documented as of this encounter
--- OUTSIDE RECORDS SUMMARY | 2025-03-17 08:14 | XMS_ITS | Clinical Summary ---
Author Organization [facility] Healthcare Address [address] [place] [address] Care Team Providers Care Mannequin Molder Name Role Phone Sarah Lopez DO Unavailable [phone] Allergies Active Allergy Reactions Criticality Noted Date [...] 30 tablet 11 5 12/26/19 26 Active amoxicillin (Amoxil) 500 MG capsule Take 1,000 mg by mouth in the morning and 1,000 mg before bedtime. 5 Active ondansetron ODT (Zofran-ODT) 4 MG disintegrating tabletIndications: Nausea Take 1 tablet (4 mg) by mouth every 6 (six) hours if needed for nausea or vomiting 30 tablet 2 5 03/13/20 25 Active Problems Problem Noted Date Diagnosed Date 10 weeks gestation of ([facility]) 2023 First trimester ([facility]) 09/11/2024 Estimated Date of Delivery Comme nts Yes 04/05/2025 Based on Ultraso und Encounters Date Type Department Care Team Description 03/12/2025 Clinisync Result Encounter [facility] External Department Unsolicited Maria Pendleton, DO 03/10/2025 11:10 AM EDT Routine [facility] OB [address] [facility] [place] [place] [address] Maria Pendleton, Third trimester ([facility]) 03/10/2025 Bamboo flowsheet [facility] OB [address] [facility] [place] [place] [address] Maria Pendleton, DO 03/05/2025 Clinisync Result Encounter [facility] External Department Unsolicited Maria Pendleton, DO 02/26/2025 Clinisync Result Encounter [facility] External Department Unsolicited Maria Pendleton, DO 02/24/2025 11:40 AM EDT Routine [facility] OB [address] [place] [address] Maria Pendleton, 34 weeks gestation of ([facility]); Third trimester ([facility]) 02/24/2025 Bamboo flowsheet [facility] OB [address] [place] [address] Maria Pendleton, 02/20/2025 Telephone [facility] OB [address] [place] [address] Mary Cruz MA 02/19/2025 Clinisync Result Encounter [facility] External Department Unsolicited Maria Pendleton, DO 02/16/2025 Abstract [facility] OB [address] [place] [address] 049-363 Maggy Sanz LPN 02/12/2025 Clinisync Result Encounter [facility] External Department Unsolicited Maria Pendleton, DO 02/11/2025 10:50 AM EDT Routine [facility] OB [address] [place] [address] Priscilla Warren PA Third trimester ([facility]); 32 weeks gestation of ([facility]); Nausea 02/11/2025 Bamboo flowsheet [facility] OB [address] [facility] [place] [address] Priscilla Warren PA 02/04/2025 Telephone [facility] OB [address] [facility] [place] [address] Suze Lopez LPN 01/30/2025 Abstract [facility] OB [address] [facility] [place] [address] Mary Cruz MA 01/28/2025 External Result Encounter [facility] External Department Unsolicited Priscilla Warren PA 01/27/2025 8:30 AM EDT Routine [facility] OB [address] [facility] [place] [address] Maria Pendleton, Third trimester ([facility]); 30 weeks gestation of ([facility]); H/O pre-eclampsia in prior , currently ([facility]); H/O delivery, currently ([facility]); Request for sterilization 01/27/2025 Abstract [facility] OB [address] [facility] [place] [address] Maria Pendleton, DO 01/27/2025 Bamboo flowsheet [facility] OB [address] [facility] [place] [address] Maria Pendleton, 01/20/2025 Abstract [facility] OB [address] [facility] [place] [address] Maria Pendleton, DO 01/15/2025 Telephone [facility] OB [address] [facility] [place] [address] Christy Cui MA 01/14/2025 11:20 AM EDT Routine [facility] B[facility] OB [address] [place] [address] Reema Leslie, JEFFERSON Third trimester ([facility]); 28 weeks gestation of ([facility]) 01/14/2025 External Result Encounter NOMS External Department Unsolicited Maria Pendleton, 01/14/2025 Abstract [facility] [address] [place] [address] Maria Pendleton, DO 01/14/2025 Bamboo flowsheet [facility]OM[facility] [address] [place] [address] Reema Leslie, JEFFERSON 01/09/2025 Results Follow-Up [facility] [address] [place] [address] Suze Lopez, CANDY BUTCHER 01/08/2025 Results Follow-Up [facility]OM[facility] [address] [place] [address] Suze Lopez, CANDY BUTCHER 01/08/[address] [address] [place] [address] Suze Lopez, CANDY BUTCHER 01/08/2025 Clinisync Result Encounter [facility]OMS External Department Unsolicited Maria Pendleton, 01/06/2025 Results Follow-Up [facility]OM[facility] [address] [place] [address] Suze Lopez, CANDY BUTCHER 01/06/2025 Clinisync Result Encounter [facility]OMS External Department Unsolicited Priscilla Warren PA 12/30/2024 11:10 AM EDT Routine [facility]OM[facility] [address] [place] [address] Maria Pendleton, DO Second trimester ([facility]); 26 weeks gestation of ([facility]); Seen in emergency room; Exposure to STD; HSV (herpes simplex virus) infection 12/30/2024 External Result Encounter [facility]OMS External Department Unsolicited Maria Pendleton, 12/30/2024 Bamboo flowsheet [facility] OB [address] [facility] [place] [address] Maria Pendleton, 12/29/2024 Abstract [facility] [address] [place] [address] Maria Pendleton, 12/23/20[address] [facility] [address] [place] [address] Christy Cui MA 12/17/2024 Abstract [facility] OB [address] [place] [address] [place] [address] Maria Pendleton, 12/16/2024 Abstract [facility] [address] [place] [address] Maria Pendleton, from Last 3 Months Family History Medical [...] AM EDT Routine [facility] B[facility] OB [address] [facility] [place] [address] Priscilla Warren PA [address] [facility] [place] [address] 11/19/2025 10:50 AM EST Office Visit [facility] [address] [place] [address] Kayleigh Chung, BURN OUT SCARFING OPERATOR-VP OF CUSTOMER EXPERIENCE STRATEGY [address] [place] [address] Procedures Procedure Name Priority Date/Time Associated Diagnosis Comments US OB BPP W NON-STRESS 03/12/2025 11:54 AM EDT US OB BPP W NON-STRESS 03/05/2025 12:03 PM EDT US OB BPP W NON-STRESS 02/26/2025 1:13 PM EDT POCT URINALYSIS DIPSTICK Routine 02/24/2025 12:05 PM EDT 34 weeks gestation of ([facility]) Third trimester ([facility]) US OB BPP W NON-STRESS 02/19/2025 11:29 AM EDT US OB BPP W NON-STRESS 02/12/2025 9:06 AM EDT POCT URINALYSIS DIPSTICK Routine 02/11/2025 11:00 AM EDT Third trimester ([facility]) 32 weeks gestation of ([facility]) FERRITIN Routine 01/28/2025 8:32 AM EDT TRANSFERRIN Routine 01/28/2025 8:32 AM EDT RECURRENT VAGINITIS (HTRX) Routine 01/14/2025 11:52 AM EDT POCT URINALYSIS DIPSTICK Routine 01/14/2025 11:31 AM EDT Third trimester ([facility]) TBH CREATININE Routine 01/08/2025 8:35 AM EDT ALL BUN Routine 01/08/2025 8:35 AM EDT ALL CBC WITH AUTO DIFF Routine 01/08/2025 8:35 AM EDT TBH URINE MICROSCOPIC ONLY Routine 01/08/2025 8:05 AM EDT TBH UA (CLEAN/CATCH) CALENDER RUNNER/MICRO IF IND. Routine 01/08/2025 8:05 AM EDT GLUCOSE 1 HOUR Routine 01/06/2025 10:42 AM EDT ALL CBC WITH AUTO DIFF Routine 01/06/2025 10:42 AM EDT RECURRENT VAGINITIS (HTRX) Routine 12/30/2024 3:26 PM EDT from Last 3 Months Results * US OB BPP W NON-STRESS (03/12/2025 11:54 AM EDT) Only the most recent of5 resultswithin the time period is included. Anatomical Region Laterality Modality Other 03/12/2025 11:5 4 AM EDT Narrative 03/12/2025 11:56 [place] [address] Ultrasound Report Signed Patient: LISHA VALENTIN MR#: [id number] : 1990 Acct:[id number] Age/Sex: 34 / F ADM Date: 03/12/25 Loc: [facility] 250-[address]: Maria Pendleton D.O. Ordering Physician: Maria Pendleton D.O. Date of Service: 03/12/25 Procedure(s): US OB BPP w non-stress Accession Number(s): [id number] cc: Maria Pendleton D.O.; Physician,Non-Staff M.DJorge [place] [address] Patient Name: LISHA VALENTIN MRN: [facility]:[id number] date: 1990 Sex: F Assigned Patient Location: Current Patient Location: US Accession/Order Number: [id number] Exam Date: 03/12/2025 11:52 Report Date: 03/12/2025 11:54 At the request of: MARIA PENDLETON DO Procedure: US OB BPP w non-stress BIOPHYSICAL PROFILE: CLINICAL INFORMATION: H/O DELIVERY O09.299 COMPARISON: 03/05/2025 There is a single live intrauterine gestation in cephalic presentation. The reported gestational age is 36 weeks 4 days. The heart rate measures 148 beats per minute. FINDINGS: TONE: 1 or [...] greater than 2 cm [Y] 2/2 VIDA: 20.4 cm. This is in upper normal range. Total score: 8/8 US/US OB BPP w non-stress IMPRESSION: NORMAL BIOPHYSICAL PROFILE Impression dictated by: Michell Miller M.D. 03/12/2025 11:54 AM Dictation Location: [place] [address] Electronically authenticated by: [id number] Y Date: 03/12/2025 11:54 Dictated By: Michell Miller M.D. Signed By: 03/12/25 1156 DD/ 1154 TD/TT: Sorter Packer: Procedure Note Radiology, Radiologist, MD - 03/12/2025 [place] [address] Ultrasound Report Signed Patient: LISHA VALENTIN GMR#: [id number] : 1990Acct:[id number] Age/Sex: 34 / FADM Date: 03/12/25 Loc: [facility] [address]: Maria Pendleton D.O. Ordering Physician: Maria Pendleton D.O. Date of Service: 03/12/25 Procedure(s): US OB BPP w non-stress Accession Number(s): [id number] cc: Maria Pendleton D.O.; Physician,Non-Staff Kacey [place] [address] Patient Name: LISHA VALENTIN MRN: [facility]:[id number] date: 1990 Sex: F Assigned Patient Location: Current Patient Location: US Accession/Order Number: [id number] Exam Date: 03/12/2025 11:52 Report Date: 03/12/2025 11:54 At the request of: MARIA PENDLETON DO Procedure: US OB BPP w non-stress BIOPHYSICAL PROFILE: CLINICAL INFORMATION: H/O DELIVERY O09.299 COMPARISON: 03/05/2025 There is a single live intrauterine gestation in cephalic presentation.The reported gestational age is 36 weeks 4 days. The heart ratemeasures 148 beats per minute. FINDINGS: TONE: 1 or [...] greater than 2 cm [Y] 2/2 VIDA: 20.4 cm. This is in upper normal range. Total score: 8/ US/US OB BPP w non-stress IMPRESSION: NORMAL BIOPHYSICAL PROFILE Impression dictated by: Michell Miller M.D. 03/12/2025 11:54 AM Dictation Location: [place] [address] Electronically authenticated by: [id number] Y Date: 1:54 Dictated By: Michell Miller M.D. Signed By:03/12/25 1156 DD/ 1154 TD/TT: Sorter Packer: Maria Helder DO [facility] Final Result [...] Urine 02/24/2025 12:0 5 PM EDT Maria Helder DO POINT OF CARE TEST ENTER/EDIT OR DERABLES Final Result * Transferrin (01/28/2025 8:32 AM EDT) TRANSFERRIN 226 203 - 362 mg/dL 01/28/2025 11:02 AM EDT [facility] Other Topography unknown / Unknown 01/28/2025 8:32 AM EDT 01/28/2025 8:32 AM EDT Priscilla SRIVASTAVA LAB BLOOD ORDERABLES Final Resul t Performing Organization Address [facility] de Phone Number [address] [address], [place] [phone] * Ferritin (01/28/2025 8:32 AM EDT) FERRITIN 43.0 11.0 - 306.8 ng/mL 01/28/2025 11:09 AM EDT [facility] Other Topography unknown / Unknown 01/28/2025 8:32 AM EDT 01/28/2025 8:32 AM EDT Priscilla SRIVASTAVA LAB BLOOD ORDERABLES Final Resul t Performing Organization Address [facility] de Phone Number [address] [address], [address] [address] * (ABNORMAL) RECURRENT VAGINITIS (HTRX) (01/14/2025 11:52 AM EDT) Only the most recent of2 resultswithin the time period is included. ATOPOBIUM VAGINAE 25.517(A) 19.961 - 24.689 ppm 01/15/2025 7:26 AM EDT [facility] ATOPOBIUM VAGINAE Detected(A) 19.961 - 24.689 ppm 01/15/2025 7:26 AM EDT [facility] BVAB 2,3 (BACTERIAL VAGINOSIS ASSOCIATED BACTERIA 2, 3); MOBILUNCUS SPP 23.796(A) 19.961 - 24.689 ppm 01/15/2025 7:26 AM EDT [facility] [place] BVAB 2,3 (BACTERIAL VAGINOSIS ASSOCIATED BACTERIA 2, 3); MOBILUNCUS SPP Detected(A) 19.961 - 24.689 ppm 01/15/2025 7:26 AM EDT [facility] [place] MARION ALBICANS, PARAPSILOSIS, TROPICALIS 0.000 19.961 - 30.770 ppm 01/15/2025 7:26 AM EDT [facility] MARION ALBICANS, PARAPSILOSIS, TROPICALIS Not Detected 19.961 - 30.770 ppm 01/15/2025 7:26 AM EDT [facility] MARION GLABRATA 0.000 23.000 - 32.138 ppm 01/15/2025 7:26 AM EDT [facility] MARION GLABRATA Not Detected 23.000 - 32.138 ppm 01/15/2025 7:26 AM EDT [facility] MARION KRUSEI 0.000 23.000 - 32.271 ppm 01/15/2025 7:26 AM EDT [facility] MARION KRUSEI Not Detected 23.000 - 32.271 ppm 01/15/2025 7:26 AM EDT [facility] CHLAMYDIA TRACHOMATIS 0.000 23.000 - 31.467 ppm 01/15/2025 7:26 AM EDT [facility] CHLAMYDIA TRACHOMATIS Not Detected 23.000 - 31.467 ppm 01/15/2025 7:26 AM EDT [facility] GARDNERELLA VAGINALIS 0.000 19.961 - 24.689 ppm 01/15/2025 7:26 AM EDT [facility] GARDNERELLA VAGINALIS Not Detected 19.961 - 24.689 ppm 01/15/2025 7:26 AM EDT [facility] MEGASPHAERA (TYPES 1, 2) 0.000 19.961 - 24.689 ppm 01/15/2025 7:26 AM EDT [facility] MEGASPHAERA (TYPES 1, 2) Not Detected 19.961 - 24.689 ppm 01/15/2025 7:26 AM EDT [facility] NEISSERIA GONORRHOEAE 0.000 23.000 - 32.117 ppm 01/15/2025 7:26 AM EDT [facility] NEISSERIA GONORRHOEAE Not Detected 23.000 - 32.117 ppm 01/15/2025 7:26 AM EDT [facility] TRICHOMONAS VAGINALIS 0.000 23.000 - 32.119 ppm 01/15/2025 7:26 AM EDT [facility] TRICHOMONAS VAGINALIS Not Detected 23.000 - 32.119 ppm 01/15/2025 7:26 AM EDT [facility] MYCOPLASMA GENITALIUM 0.000 19.961 - 24.689 ppm 01/15/2025 7:26 AM EDT [facility] MYCOPLASMA GENITALIUM Not Detected 19.961 - 24.689 ppm 01/15/2025 7:26 AM EDT [facility] Tissue 01/14/2025 11:5 2 AM EDT 01/15/2025 2:13 AM EDT Maria Pendleton DO LAB BLOOD ORDERABLES Final Resul t [facility] [address] [place] [address] * TB CREATININE (01/08/2025 8:35 AM EDT) [facility] CREATININE 0.63 0.55 - 1.02 mg/dL TBH TBH EGFR-AF FRENCH >60 >=60 mL/min/1.7 3m 2 TBH TBH EGFR-NON AF FRENCH >60 >=60 mL/min/1.7 3m 2 TBH 01/08/2025 8:35 AM EDT 01/08/2025 8:39 AM EDT Narrative [facility] - 01/08/2025 8:49 AM EDT us Maria Pendleton DO [facility] Final Result [facility] * (ABNORMAL) ALL CBC WITH AUTO [...] Final Result Performing Organization Address [facility] Co de Phone Number [facility] * ALL BUN (01/08/2025 8:35 AM EDT) BLOOD UREA NITROGEN 8.0 7.0 - 18.0 mg/dL TBH 01/08/2025 8:35 AM EDT 01/08/2025 8:39 AM EDT Narrative [facility] - 01/08/2025 8:49 AM EDT Maria Helder DO [facility] Final Result Performing Organization Address [facility] Phone Number [facility] TBH * (ABNORMAL) TBH [...] Final Result Performing Organization Address [facility]/ZIP Co de Phone Number [facility] * (ABNORMAL) TBH UA (CLEAN/CATCH) CALENDER RUNNER/MICRO IF IND. (01/08/2025 8:05 AM EDT) COLOR [...] Final Result Performing Organization Address [facility]/ZIP Co de Phone Number [facility] TB * GLUCOSE 1 HOUR (01/06/2025 10:42 AM EDT) GLUCOSE 1 HOUR 124 <130 mg/dL TB 01/06/2025 10:4 2 AM EDT 01/06/2025 10:43 AM EDT Narrative [facility] - 01/06/2025 11:08 AM EDT Priscilla SRIVASTAVA LAB BLOOD ORDERABLES Final Resul t [facility] TB from Last 3 Months Insurance [employer] [facility] Care Teams Mannequin Molder Relationship Specialty Start Date End Date Sarah Lopez DO [address] [place] [address] Referring Physician Emergency Medicine 02/18/23
--- OUTSIDE RECORDS SUMMARY | 2025-03-17 08:14 | XMS_ITS | Encounter Summary ---
Author Organization [facility] Address [address] [place] [address] Care Team Providers Care Stove Carriage Operator Name Role Phone Sarah Lopez DO Unavailable [phone] Encounter Details Date Type Department Care Team (Late st Contact Info) Description 02/16/2025 Abstract [facility] OB [address] [facility] [address] [place] [address] Maggy Sanz LPN Social History Tobacco [...] Routine [facility] B[facility] OB [address] [place] [address] Priscilla Warren PA [address] [place], [place] [address] [place], [place] [id number] 11/19/2025 10:50 AM EST Office Visit [facility] [address] [place] [address] Kayleigh Chung, MANAGER SOLAR-SPORTS MARKETER [address] [place] [address] documented as of this encounter Visit Diagnoses Not on filedocumented in this encounter Care Teams Stove Carriage Operator Relationship Specialty Start Date End Date Sarah Lopez DO [address] [place] [address] Referring Physician Emergency Medicine 02/18/23 documented as of this encounter
--- OUTSIDE RECORDS SUMMARY | 2025-03-17 08:14 | XMS_ITS | Encounter Summary ---
Author Organization [facility] Address [address] [place] [address] [place] [address] Care Team Providers Care Wire Coater Name Role Phone Sarah Lopez DO Unavailable [phone] Encounter Details Date Type Department Care Team (Late st Contact Info) Description 01/20/2025 Abstract [facility] OB [address] [place] [address] Malcolm Pendleton [address] [facility] [address] Mary Garcia, [place] [address] Social History Tobacco Use Types Packs/Day Years [...] AM EDT Routine [facility] B[facility] OB [address] [place] [address] Priscilla Warren PA [address] [place], [facility] 11/19/2025 10:50 AM EST Office Visit [facility] [address] [facility] [address] [place] [address] Kayleigh Chung APRN-SUPERVISOR FELLING BUCKING [address] [address] documented as of this encounter Visit Diagnoses Not on filedocumented in this encounter Care Teams Wire Coater Relationship Specialty Start Date End Date Sarah Lopez DO [address] [place] [address] Referring Physician Emergency Medicine 02/18/23 documented as of this encounter
--- OUTSIDE RECORDS SUMMARY | 2025-03-17 08:14 | XMS_ITS | Encounter Summary ---
Author Organization [facility] Address [address] [place] [address] Care Team Providers Care Inspector Publications Name Role Phone Sarah Lopez DO Unavailable [phone] Encounter Details Date Type Department Care Team (Late st Contact Info) Description 01/09/2025 Results Follow-Up [facility] OB [address] [place] [address] Suze Lopez LPN [address] [place] [id number] Social History Tobacco Use Types Packs/Day Years [...] EDT Routine [facility] BCP OB [address] [facility] [address] [place] [address] Priscilla Warren PA [address] [facility] [address] [place], [place] [phone] 11/19/2025 10:50 AM EST Office Visit [facility] [address] [place] [address] Kayleigh Chung APRN-CARBURETOR REBUILDER [address] [place] [address] documented as of this encounter Visit Diagnoses Not on filedocumented in this encounter Care Teams Inspector Publications Relationship Specialty Start Date End Date Sarah Lopez DO [address] [place] [address] Referring Physician Emergency Medicine 02/18/23 documented as of this encounter
--- OUTSIDE RECORDS SUMMARY | 2025-03-17 08:14 | XMS_ITS | Patient Health Record ---
Author Organization [facility] Address [address] [place] [address] Care Team Providers Care Globe Changer Name Role Phone Yudelka Lopez Primary Care Provider [phone] Leroy Salazar Unavailable [phone] Allergies Allergen (clinical drug ingredient) Drug/Non Drug Allergy documented on EMR Reaction Allergy Type Onset Date Status labetalol Labetalol HCl shortness of breath Drug Allergy Active Results Component Value Reference Range Notes Comprehensive Metabolic Pane l Reviewed date:08/07/2024 07:53:16 AM Interpretation: Performing Lab:, [facility], [address] [place] Notes/Report: Glucose 98 70-100 mg/dL Random Glucose [...] Reviewed date:08/07/2024 07:53:16 AM Interpretation: Performing Lab:, [facility], [address] [facility] Notes/Report: Approximate Approximate hCG Gestational Age Range (mIU/ml) (weeks) 0.2-1 5-50 1-2 50-500 2-3 100-5,000 3-4 500-10,000 4-5 1,000-50,000 5-6 10,000-100,000 6-8 15,000-200,000 8-12 10,000-100,000 HCG,Quantitative 69532.00 Complete Blood Count Auto Di ff Reviewed date:08/07/2024 07:53:16 AM Interpretation: Performing Lab:, [facility], [address] [place] Notes/Report: White Blood Count 7.9 [...] 10*3/uL Monocyte Distribution Width 17.93 0.00-20.00 % Ethyl Alcohol Profile Reviewed date:08/07/2024 07:53:16 AM Interpretation: Performing Lab:, [facility], [address] [place] Notes/Report: Ethanol <10 Percent Ethanol TNP Basic Metabolic Panel (Not y et reviewed by provider) Interpretation: Performing Lab:, [facility], [address] [place] Notes/Report: Glucose 73 70-100 mg/dL Random Glucose [...] 6.0-15.0 meq/L Creatinine Clr Calc Pharmacy 164.96 Complete Blood Count Auto Di ff (Not yet reviewed by provider) Interpretation: Performing Lab:, [facility], [address] [place] Notes/Report: For adults in ED, MDW > [...] reviewe d by provider) Interpretation: Performing Lab:, [facility], [address], [place] Notes/Report: Streptococcus pyogenes Ag [Presence] in Throat by Rapid immunoassay Negative for Group A Strep Antigen Note 1 ---- NOTE 2 Results are those of a screening test. NOTE 3 If clinically indica delmer please order a culture. NOTE 4 ---- NOTE 5 Reference range = Negative Respiratory (Upper) Panel, P CR (Not yet reviewed by provider) Interpretation: Performing Lab:, [facility], [address] [place], [place] Notes/Report: Adenovirus Not detected Bordetella parapertussis Not [...] Influenza A H3 Blank Space ---- ------ Dipstick and Microscopic (No t yet reviewed by provider) Interpretation: Performing Lab:, [facility], [address], [place] Notes/Report: Name Collection Type:: Clean-Voided Midstream Color,Urine Light-Yellow Yellow Appearance,Urine Clear Clear Specificy [place],Urine 1.011 1.001-1.030 pH,Urine 6.5 5.0-9.0 Leukocyte Esterase,Urine 2+ Negative Nitrite,Urine Negative Negative Protein,Urine Negative Negative Glucose,Urine (UA) Normal Normal Ketones,Urine 3+ Negative Urobilinogen,Urine Normal Normal Bilirubin,Urine Negative Negative Occult Blood,Urine Negative Negative RBC,Urine 1-2 0-4 [HPF] WBC,Urine 1-2 0-4 [HPF] Squamous Epithelial Cell,Urine 5-9 0-2 [HPF] Bacteria,Urine 1+ None Seen Hyaline Casts,Urine None 0-8 Mucus,Urine Rare BioFire Detected (Not yet re viewed by provider) Interpretation: Performing Lab:, [facility], [address] [place] Notes/Report: BioFire Detected Detected Not Detecte This is a duplicate RP2.1 COVID (PCR) result to be used for statistical tracking purpose only. Basic Metabolic Panel Reviewed date:07/14/2024 05:15:14 PM [...] Reviewed date:07/14/2024 05:15:14 PM Interpretation: Performing Lab:, [facility], [address] Notes/Report: Total Protein [...] Reviewed date:07/14/2024 05:15:14 PM Interpretation: Performing Lab:, [facility], [address], [place] Notes/Report: [...] Reviewed date:07/14/2024 05:15:14 PM Interpretation: Performing Lab:, [facility], Jcarlos CHRISTOPHER[address], [facility] Notes/Report: This is a duplicate Cepheid Xpert Xpress CoV-2/Flu/RSV Plus RNA by RT-PCR result to be used for statistical tracking purpose only. Cepheid COVID PCR Negative Negative Negative Dipstick and Microscopic Reviewed date:07/14/2024 05:15:14 PM Interpretation: Performing Lab:, [facility], Jcarlos CHRISTOPHERJorge, [facility] Notes/Report: Name Collection Type:: Clean-Voided Midstream Color,Urine Yellow Yellow Appearance,Urine Clear Clear Specificy [place],Urine 1.030 1.001-1.030 pH,Urine 6.0 5.0-9.0 Leukocyte Esterase,Urine [...] Reviewed date:07/14/2024 05:15:14 PM Interpretation: Performing Lab:, [facility], [facility] [address]STOPHER[address], [facility] Notes/Report: COVID-19 Cepheid Result Negative for KELLY [...] date:07/14/2024 04:15:57 PM Interpretation: Performing Lab: Notes/Report: [facility] [place] [address] CT Scan Report Signed Patient: Lisha Fonseca MR#: [id number] 1238 : 1990 Acct:[id number] Age/Sex: 34 / F ADM Date: 07/14/24 Loc: ER Room: Type: [facility] ER Attending Dr: Copies to: DO [...] Mancera Jr., D.O.07/14/2024 2:43 PM Dictation Location: [facility]-- Transcribed By: [facility] 07/14/24 1443 Dictated By: Leroy Mancera Jr, DO 07/14/24 1438 Signed By: <Electronically signed by Leroy Mancera Jr, DO in [place]> 07/14/24 1443 Reason For Referral No Information Social History [...] down, depressed, or hopeless More than h snf the days Trouble falling or staying a [...] 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 Stress is when someone feels tense, nervous, anxious, or cant sleep at night because their mind is troubled Not at all In the past year have you sp ent more than 2 nights in a row in a long-term, penitentiary, senior care center, or juvenile correctional facility? No Are [...] Problem Status W/U Status Risk Notes Problem Hyperthyroidism (94610925) Hyperthyroidism (E05.90) Active confirmed Problem Thyroid nodule (305495086) Thyroid nodule (E04.1) Active confirmed Problem Iron deficiency anemia (89958011) Iron deficiency anemia, unspecified iron deficiency anemia type (D50.9) Active confirmed Problem Migraine with aura (6267748) Migraine with aura and without status migrainosus, not intractable (G43.109) Active confirmed Problem Endometriosis (851083089) Endometriosis (N80.9) Active confirmed Problem Anxiety disorder (858813550) Anxiety disorder, unspecified (F41.9) Active confirmed Encounters Encounter Location Date Provider Diagnosis [facility] [address] [place] [address] 07/18/2024 [facility] [address] [place] [address] 08/13/2024 [facility] [address] [place] [address] 12/19/2024 Leroy Salazar Encounter for dental examination [...] Insured Coverage Start Date Coverage End Date [facility] [address] [place] [address] [id number] LISHA FONSECA Other 1 [employer] [place] Medicaid [address] [place] [address] [id number] LISHA FONSECA Self - patient is the insured 3 3 Wrap [employer] [address] [place] [address] [id number] LISHA FONSECA Self - patient is the insured 3 3 Wrap [facility] [place] [address] [place] [address] [id number] LISHA FONSECA Self - patient is the insured 3 zDENTAL DQ [facility] [place]-termed 22 [address] [place] [address] [id number] LISHA FONSECA Self - patient is the insured 2 zDental MEDICAID [facility] after [facility] CHP-terme d 22 [address] [place] [address] [id number] LISHA FONSECA Self - patient is the insured 2 DENTAL [employer] [address] [address] [place] [address] [id number] LISHA FONSECA 5 Dental Wrap [facility] [employer] [address] [place] [address] [phone] [id number] LISHA FONSECA Self - patient is the insured 5 Dental [employer] DQ [address] [address] [place] [address] [id number] LISHA FONSECA Self - patient is the insured 5 Medical (General) History Medical History History ICD Code hypertension anemia Covid 19 Surgical History Surgery Date(Month/Year) section-x2 Endometrial Tumor Resection 04/03/22 Hospitalization History Reason Date(Month/Year) see surgical Child x2
--- OUTSIDE RECORDS SUMMARY | 2025-03-17 08:14 | XMS_ITS | Encounter Summary ---
Author Organization [facility] Address [address] [place] [address] Care Team Providers Care Naval Marine Engineer Name Role Phone Sarah Lopez DO Unavailable [phone] Encounter Details Date Type Department Care Team (Late st Contact Info) Description 01/30/2025 Abstract [facility] OB [address] [place] [address] Mary Cruz MA Social History Tobacco [...] Routine [facility] BCP OB [address] [place] [address] Priscilla Warren PA [address] [place], [place] [id number] 11/19/2025 10:50 AM EST Office Visit [facility] [address] [place] [address] Kayleigh Chung, LOCOMOTIVE REPAIRER DIESEL-MACHINE PIE MAKER [address] [place] [address] documented as of this encounter Visit Diagnoses Not on filedocumented in this encounter Care Teams Naval Marine Engineer Relationship Specialty Start Date End Date Sarah Lopez DO [address] [place] [address] Referring Physician Emergency Medicine 02/18/23 documented as of this encounter
--- OUTSIDE RECORDS SUMMARY | 2025-03-17 08:14 | XMS_ITS | Clinical Summary ---
Author Organization [facility] Address [address] [place] [address] Care Team Providers Care Ship'S Cook Name Role Phone Unavailable Primary Care Provider [...] (2 - Td or Tdap) 01/09/2026 Insurance [facility] [place]ICA[place]
--- OUTSIDE RECORDS SUMMARY | 2025-03-17 08:14 | XMS_ITS | Encounter Summary ---
Author Organization [facility] Address [id number] [address] [place] [address] Care Team Providers Care Burglar Alarm Inspector Name Role Phone No Pcp, No Pcp Primary Care Provider Unavailabl e Encounter Details Date Type Department Care Team (Late st Contact Info) Description 12/01/2024 Orders Only Maternal- Medicine at [facility] [address] [place] [address] Natalie Díaz, RN Choroid plexus cyst of [...] 1 documented in this encounter Care Teams Burglar Alarm Inspector Relationship Specialty Start Date End Date No Pcp, [place] [address] PCP - General Family Medicine 02/21/24 documented as of this encounter
--- OUTSIDE RECORDS SUMMARY | 2025-03-17 08:14 | XMS_ITS | Encounter Summary ---
Author Organization [facility] Address [id number] [address] [place] [address] Care Team Providers Care Prosthetic Dentist Name Role Phone No Pcp, No Pcp Primary Care Provider Unavailabl e Encounter Details Date Type Department Care Team (Late st Contact Info) Description 12/09/2024 Orders Only Maternal- Medicine at [facility] [address] [place] [address] Natalie Díaz, RN Choroid plexus cyst of [...] MD LAB BLOOD ORDERABLES Final Re sult [employer] documented in this encounter Visit Diagnoses Diagnosis Choroid plexus cyst of fetus affecting care of mother, antepartum, fetus 1 documented in this encounter Care Teams Prosthetic Dentist Relationship Specialty Start Date End Date No Pcp, [place] [address] PCP - General Family Medicine 02/21/24 documented as of this encounter
--- OUTSIDE RECORDS SUMMARY | 2025-03-17 08:14 | XMS_ITS | Encounter Summary ---
Author Organization [facility] Address [address] [place] [address] Care Team Providers Care Farm Contractor Buyer Name Role Phone Sarah Lopez DO Unavailable [phone] Encounter Details Date Type Department Care Team (Late st Contact Info) Description 01/08/2025 Results Follow-Up [facility] OB [address] [place] [address] Suze Lopez LPN [address] [employer] [place] [id number] Social History Tobacco Use Types Packs/Day Years [...] [address] [place] [address] Priscilla Warren PA [address] [place] [address] 11/19/2025 10:50 AM EST Office Visit [facility] [address] [place] [address] Kayleigh Chung, IMPORT MANAGER-CASE PACKER AND SEALER [address] [place] [address] documented as of this encounter Visit Diagnoses Not on filedocumented in this encounter Care Teams Farm Contractor Buyer Relationship Specialty Start Date End Date Sarah Lopez DO [address] [place] [address] Referring Physician Emergency Medicine 02/18/23 documented as of this encounter
--- OUTSIDE RECORDS SUMMARY | 2025-03-17 08:14 | XMS_ITS | Encounter Summary ---
Author Organization [facility] Address [address] [place] [address] Care Team Providers Care Investment Recovery Technician Name Role Phone Sarah Lopez DO Unavailable [phone] Encounter Details Date Type Department Care Team (Late st Contact Info) Description 01/06/2025 Results Follow-Up [facility] OB [address] [place] [address] Suze Lopez LPN [address] [place] [id number] Social History Tobacco Use Types Packs/Day Years [...] AM EDT Routine [facility] BCP OB [address] [place] [address] Priscilla [place]raren PA [address] [facility] [address] [place], [place] [address] 11/19/2025 10:50 AM EST Office Visit [facility] [address] [place] [address] Kayleigh Chung, DIRECTOR OF CARDIAC REHABILITATION-DUMB WAITER OPERATOR [address] [place] [address] documented as of this encounter Visit Diagnoses Not on filedocumented in this encounter Care Teams Investment Recovery Technician Relationship Specialty Start Date End Date Sarah Lopez DO [address] [place] [address] Referring Physician Emergency Medicine 02/18/23 documented as of this encounter
--- OUTSIDE RECORDS SUMMARY | 2025-03-17 08:14 | XMS_ITS | Clinical Summary ---
Author Organization [facility] Address [address] [place] [address] Care Team Providers Care Brake Operator Name Role Phone Unavailable Primary Care [...] Plan of Treatment Not on file Insurance [facility] [place] Advance Directives * Full Code (Latest Code Status on File) Date Activated Date Inactivated Comments 01/06/2016 3:26 PM 01/10/2016 9:07 PM * Full Code Date Activated Date Inactivated Comments 01/06/2016 12:49 PM 01/06/2016 3:26 PM * Full Code Date Activated Date Inactivated Comments 01/05/2016 8:33 PM 01/06/2016 12:49 PM
--- OUTSIDE RECORDS SUMMARY | 2025-03-17 08:14 | XMS_ITS | Encounter Summary ---
Author Organization [facility] Address [facility][id number] [address] [place] [address] Care Team Providers Care Biomedical Engineering Supervisor Name Role Phone No Pcp, No Pcp Primary Care Provider Unavailabl e Encounter Details Date Type Department Care Team (Late st Contact Info) Description 10/10/2024 Abstract Maternal- Medicine at [facility] [address] [place] [address] Torey Barnett MD [address] [place] [address] Social History Tobacco Use Types Packs/Day Years [...] ORDERABLES Larissa l Result Performing Organization Address City/[facility] Co de Phone Number MANUALLY TRANSCRIBED RESULTS * Syphilis Total(Unknown Syphilis Status) (09/11/2024) Syphilis Total non- reactive MANUALLY TRANSCRIBED RESULTS us Not In System Ref Prov LAB BLOOD ORDERABLES Larissa l Result Performing Organization Address City/[facility] Co de Phone Number MANUALLY TRANSCRIBED RESULTS documented in this encounter Visit Diagnoses Not on filedocumented in this encounter Care Teams Biomedical Engineering Supervisor Relationship Specialty Start Date End Date No Pcp, [place] [address] PCP - General Family Medicine 02/21/24 documented as of this encounter
--- OUTSIDE RECORDS SUMMARY | 2025-03-17 08:15 | XMS_ITS | Encounter Summary ---
Author Organization [facility] Address [address] [place] [address] [place] [address] Care Team Providers Care Derrick Boat Leverman Name Role Phone Sarah Lopez DO Unavailable [phone] Encounter Details Date Type Department Care Team (Late st Contact Info) Description 01/27/2025 Abstract [facility] OB [address] [place] [address] Malcolm Pendleton [address] Mary Garcia, [place] [address] Social History Tobacco Use Types Packs/Day Years [...] AM EDT Routine [facility] BCP OB [address] [facility] [place] [place] [address] Priscilla Warren PA [address] [place], [id number] 11/19/2025 10:50 AM EST Office Visit [facility] [address] [facility] [address] [place] [address] Kayleigh Chung APRN-GEOSCIENCES FACULTY MEMBER [address] [address] documented as of this encounter Visit Diagnoses Not on filedocumented in this encounter Care Teams Derrick Boat Leverman Relationship Specialty Start Date End Date Sarah Lopez DO [address] [place] [address] Referring Physician Emergency Medicine 02/18/23 documented as of this encounter
--- OUTSIDE RECORDS SUMMARY | 2025-03-17 08:15 | XMS_ITS | Encounter Summary ---
Author Organization [facility] Address [address] [place] [address] Care Team Providers Care Steam Clothes Press Operator Name Role Phone Sarah Lopez DO Unavailable [phone] Encounter Details Date Type Department Care Team (Late Contact Info) Description 11/10/2024 Abstract [facility] [address] [place] [address] Ingrid Esquivel NP Social History Tobacco Use [...] [facility] BCP OB [address] [place] [phone] Priscilla Warren PA [address] [place], [place] [id number] 11/19/2025 10:50 AM EST Office Visit [facility] [address] [place] [address] Kayleigh Chung, SCIENTIFIC MANAGER-PAPER CONTROL CLERK [address] [place] [address] documented as of this encounter Visit Diagnoses Not on filedocumented in this encounter Care Teams Steam Clothes Press Operator Relationship Specialty Start Date End Date Sarah Lopez DO [address] [place] [address] Referring Physician Emergency Medicine 02/18/23 documented as of this encounter
--- OUTSIDE RECORDS SUMMARY | 2025-03-17 08:15 | XMS_ITS | Encounter Summary ---
Author Organization [facility] Address [address] [place] [address] Care Team Providers Care Biofuels Operations Manager Name Role Phone Sarah Lopez DO Unavailable [phone] Encounter Details Date Type Department Care Team (Late st Contact Info) Description 01/14/2025 Abstract [facility] OB [address] [place] [address] Malcolm Pendleton [address] Mary Garcia, [place] [address] Social History Tobacco Use Types Packs/Day Years [...] AM EDT Routine [facility] BCP OB [address] [facility] [address] Priscilla Warren PA [address] [place], [facility] 11/19/2025 10:50 AM EST Office Visit [facility] [address] [facility] [address] [place] [address] Kayleigh Chung APRN-GRAIN MILL WORKER [address] [address] documented as of this encounter Visit Diagnoses Not on filedocumented in this encounter Care Teams Biofuels Operations Manager Relationship Specialty Start Date End Date Sarah Lopez DO [address] [place] [address] Referring Physician Emergency Medicine 02/18/23 documented as of this encounter
--- OUTSIDE RECORDS SUMMARY | 2025-03-17 08:15 | XMS_ITS | Encounter Summary ---
Author Organization [facility] Address [address] [address] Care Team Providers Care Chemical Engineering Technician Name Role Phone Sarah Lopez DO Unavailable [phone] Encounter Details Date Type Department Care Team (Late st Contact Info) Description 12/16/2024 Abstract [facility] OB [address] [place] [address] Malcolm Pendleton [address] Mary Garcia, [place] [address] Social History Tobacco Use Types Packs/Day Years [...] Routine [facility] BCP OB [address] [facility] [place] [address] Priscilla Warren PA [address] [place], [facility]11 11/19/2025 10:50 AM EST Office Visit [facility] [address] [facility] [address] [place] [address] Kayleigh Chung APRN-ALGEBRA TUTOR [address] [address] documented as of this encounter Visit Diagnoses Not on filedocumented in this encounter Care Teams Chemical Engineering Technician Relationship Specialty Start Date End Date Sarah Lopez DO [address] [place] [address] Referring Physician Emergency Medicine 02/18/23 documented as of this encounter
--- OUTSIDE RECORDS SUMMARY | 2025-03-17 08:15 | XMS_ITS | Encounter Summary ---
Author Organization [facility] Address [address] [place] [address] Care Team Providers Care Lens Molder Name Role Phone Sarah Lopez DO Unavailable [phone] Encounter Details Date Type Department Care Team (Late st Contact Info) Description 11/21/2024 External Result Encounter [facility] BCP OB [address] [place] [address] Maria Pendleton DO [address] [place], [facility] Social History Tobacco Use Types Packs/Day Years [...] [facility] BCP OB [address] [place] [address] Priscilla Warren PA [address] [place] [address] 11/19/2025 10:50 AM EST Office Visit [facility]ER[facility] [address] [place] [address] [place] [address] Kayleigh Chung, LEGAL BILLING COORDINATOR-GEOSPATIAL TECHNOLOGIST [address] [place] [address] [place] [address] documented as of this encounter Procedures Procedure Name Priority Date/Time Associated Diagnosis Comments US OB 14+ WEEKS ANATOMY SCAN 11/21/2024 3:40 PM EST documented in this encounter Results * US OB 14+ weeks anatomy scan (11/21/2024 3:40 PM EST) Anatomical Region Laterality Modality Body Ultrasound 11/21/2024 3:40 PM EST Narrative 11/21/2024 3:40 PM EST THIS EXAM WAS PERFORMED AT [facility] NAME: MARIAN HUSAIN : 1990 SEX: F Accession Number: [id number] ORDERING PHYSICIAN: HENNY MONTGOMERY REFERRING PHYSICIAN: MARIA PENDLETON Coding ----- --------- Procedures 85330: Ultrasound, uterus, real time with image documentation, and maternal evaluation plus detailed anatomic examination, transabdominal approach;single or first gestation 29555: Transvaginal Ultrasound (OB) Indication ----- --------- Screening [...] 0 lb 13 oz EFW by Hadlock ([id number]) Head / Face / Neck Biometry: Cephalic index 0.73 5% Nicolaides Concrete Products Dispatcher 4.4 mm CM 4.2 mm 20% Nicolaides [...] Heart / Thorax RVOT view. LVOT view. 6-kygfwx-mgiifbx view. Bicaval view. Extremities / Left hand. [...] Right choroid plexus cyst is identified. Per [facility] guidelines, isolated chorioid plexus cysts (CPCs) are a normal variant of no clinical importance with no indication for follow-up ultrasound imaging or evaluation in the setting of low risk cell free DNA screening. Double right renal artery identified. Recommendations ----- --------- Please see [facility] documentation from today. The patient is scheduled in four to six week(s) to complete anatomic survey. Subsequent follow up or other follow up as clinically determined by primary OB provider unless otherwise specified by [facility]. Results forwarded to ordering provider so they can follow up with the patient as necessary. The copy-to physician of this order is MARIA Brito The ordering physician of this order is HENNY Pineda Procedure Note Radiology, Radiologist, MD - 11/21/2024 THIS EXAM WAS PERFORMED AT [facility] NAME: MARIAN HUSAIN : 1990 SEX: F Accession Number: [id number] ORDERING PHYSICIAN: HENNY MONTGOMERY REFERRING PHYSICIAN: MARIA PENDLETON Coding ----- --------- Procedures 09082: Ultrasound, uterus, real time with imagedocumentation, and maternal evaluation plus detailed anatomic examination, transabdominalapproach;single or first gestation 40092: Transvaginal Ultrasound (OB) Indication ----- --------- Screening [...] 0 lb 13 oz EFW by Hadlock ([id number]) Head / Face / Neck Biometry: Cephalic index 0.73 5% Nicolaides [employer]crete Products Dispatcher 4.4 mm CM 4.2 mm 20% Nicolaides [...] Heart / Thorax RVOT view. LVOT view. 8-fcxlrz-knjpkie view. Bicavalview. Extremities / Left hand. Skeleton [...] Right choroid plexus cyst is identified. Per [facility] guidelines, isolated chorioid plexus cysts (CPCs) are a normalvariant of no clinical importance with no indication for follow-up ultrasound imaging or evaluation in the setting of lowrisk cell free DNA screening. Double right renal artery identified. Recommendations ----- --------- Please see [facility] documentation from today. The patient is scheduled in four to six week(s) to complete anatomicsurvey. Subsequent follow up or other follow up as clinically determined byprimary OB provider unless otherwise specified by [facility]. Results forwarded to ordering provider so they can follow up with thepatient as necessary. The copy-to physician of this order is MARIA Brito The ordering physician of this order is HENNY Pineda us Maria Pendlteon DO IMG OB US PROCEDURES Final Resul t documented in this encounter Visit Diagnoses Not on filedocumented in this encounter Care Teams Lens Molder Relationship Specialty Start Date End Date Sarah Lopez DO [address] [place] [address] Referring Physician Emergency Medicine 02/18/23 documented as of this encounter
--- OUTSIDE RECORDS SUMMARY | 2025-03-17 08:15 | XMS_ITS | Encounter Summary ---
Author Organization [facility] Address [address] [place] [address] Care Team Providers Care Administrative Dietitian Name Role Phone Sarah Lopez DO Unavailable [phone] Encounter Details Date Type Department Care Team (Late st Contact Info) Description 11/24/2024 Abstract [facility] OB [address] [place] [address] Malcolm Pendleton [address] Mary Garcia, [place] [address] Social History Tobacco Use Types Packs/Day Years [...] EDT Routine [facility] BCP OB [address] [facility] [address] Priscilla Warren PA [address] [place] [place], [facility]11 11/19/2025 10:50 AM EST Office Visit [facility]ER[facility] [address] [facility] [address] [place] [address] Kayleigh Chung APRN-CREDIT OPERATIONS SPECIALIST [address] [address] documented as of this encounter Visit Diagnoses Not on filedocumented in this encounter Care Teams Administrative Dietitian Relationship Specialty Start Date End Date Sarah Lopez DO [address] [place] [address] Referring Physician Emergency Medicine 02/18/23 documented as of this encounter
--- OUTSIDE RECORDS SUMMARY | 2025-03-17 08:15 | XMS_ITS | Encounter Summary ---
Author Organization [facility] Address [address] [place] [address] Care Team Providers Care Hospice Educator Name Role Phone Sarah Lopez DO Unavailable [phone] Encounter Details Date Type Department Care Team (Late st Contact Info) Description 12/17/2024 Abstract [facility] OB [address] [facility] [place] [address] Malcolm Pendleton [address] Mary Garcia, [place] [address] Social History Tobacco Use Types Packs/Day Years [...] AM EDT Routine [facility] BCP OB 102 [facility] [place] [address] Priscilla Warren PA [address] [place], [facility]11 11/19/2025 10:50 AM EST Office Visit [facility] DERM [address] [facility] [address] [place] [address] Kayleigh Chung APRN-EXHIBITS MANAGER [address] [address] documented as of this encounter Visit Diagnoses Not on filedocumented in this encounter Care Teams Hospice Educator Relationship Specialty Start Date End Date Sarah Lopez DO [address] [place] [address] Referring Physician Emergency Medicine 02/18/23 documented as of this encounter
--- OUTSIDE RECORDS SUMMARY | 2025-03-17 08:15 | XMS_ITS | Clinical Summary ---
Author Organization [facility] Address [id number] [address] [place] [address] Care Team Providers Care Mlt Name Role Phone No Pcp, No Pcp [...] Team Description 02/26/2025 Telephone Maternal- Medicine at [facility] [address] [place] [address] Caroline Chavira RN 02/04/2025 Telephone Maternal Medicine Irma [address] [place] [address] [place] [address] Josey Valentine 01/28/2025 Orders Only Maternal- Medicine at [facility] [address] [place] [address] Marci Coppola CMA Thalassemia alpha carrier (Primary Dx); Family history of sickle cell trait; Family history of DVT; History of anemia; Choroid plexus cyst of fetus affecting care of mother, antepartum, fetus 1; Abnormal genetic test during ; Previous delivery affecting , antepartum; History of pre-eclampsia in prior , currently in first trimester 01/28/2025 Telephone Maternal Medicine Irma [address] [place] [address] Josey Valentine 01/27/2025 9:56 AM EDT - 01/27/2025 11:59 PM EDT Hospital Encounter [facility] - Ultrasound [address] [place] [address] History of anemia Discharge Disposition: Home 01/27/2025 Travel 01/13/2025 9:00 AM EDT - 01/13/2025 11:59 PM EDT Hospital Encounter [facility] - Ultrasound [address] [place] [address] Alpha thalassemia silent carrier Discharge Disposition: Home 01/13/2025 Travel 12/16/2024 8:46 AM EDT - 12/16/2024 11:59 PM EDT Hospital Encounter [facility] - Ultrasound [address] [place] [address] Alpha thalassemia silent carrier Discharge Disposition: Home 12/16/2024 Travel from Last 3 Months Family History [...] period is included. Anatomical Region Laterality Modality OB-SECURITY CLERK Ultrasound 01/27/2025 10:0 9 AM EDT Narrative 01/27/2025 11:10 AM EDT NAME: MARIAN HUSAIN : 1990 SEX: F Accession Number: [id number] ORDERING PHYSICIAN: HENNY MONTGOMERY REFERRING PHYSICIAN: MARIA HARTLEY Coding ----- --------- Procedures 31993: Follow-up Ultrasound, [place] fetus [address]: Doppler velocimetry, ; middle cerebral artery Indication [...] EFW (oz) 3 oz EFW by: Hadlock ([id number]) Extended Tibia 48.0 mm 29w 0d 16% Osiel Valve Lapper 3.6 mm CM 5.9 mm 19% Nicolaides [...] Heart/Thorax: 4-chamber view. RVOT view. LVOT view. 6-pkzqap-ofeqlgq view. Situs. Aortic arch view. Bicaval view. [...] 1.99 30% [place] RI 0.84 71% [facility] PS 50.72 cm/s PS 1.24 [...] HUSAIN : 1990 SEX: F Accession Number: [id number] ORDERING PHYSICIAN: HENNY MONTGOMERY REFERRING PHYSICIAN: MARIA HARTLEY Coding ----- --------- Procedures 48155: Follow-up Ultrasound, per fetus 03763: Doppler velocimetry, ; middle cerebral artery Indication [...] EFW (oz) 3 oz EFW by: Hadlock ([id number]) Extended Tibia 48.0 mm 29w 0d 16% Osiel Valve Lapper 3.6 mm CM 5.9 mm 19% Nicolaides [...] Heart/Thorax: 4-chamber view. RVOT view. LVOT view. 5-qoazdc-wipxrxn view.Situs. Aortic arch view. Bicaval view. Ductal [...] 1.99 30% [place] RI 0.84 71% [facility] PS 50.72 cm/s PS 1.24 [...] follow up with thepatient as necessary. us Henny Montgomery MD [facility] [place]LES Final Resul t from Last 3 Months Insurance [employer] [place] [employer] Care Teams Mlt Relationship Specialty Start Date End Date No Pcp, [place] [address] PCP - General Family Medicine 02/21/24
--- OUTSIDE RECORDS SUMMARY | 2025-03-17 08:15 | XMS_ITS | Encounter Summary ---
Author Organization [facility] Address [address] [place] [address] Care Team Providers Care Bag Bailer Name Role Phone Sarah Lopez DO Unavailable [phone] Encounter Details Date Type Department Care Team (Late st Contact Info) Description 12/29/[address] [facility] OB [address] [place] [address] Malcolm Pendleton [address] Mary Garcia, [place] [address] Social History Tobacco Use Types Packs/Day Years [...] AM EDT Routine [facility] BCP OB [address] [facility] [place] [place] [address] Priscilla Warren PA [address] [place], [facility]11 11/19/2025 10:50 AM EST Office Visit [facility] DERM [address] [facility] [address] [place] [address] Kayleigh Chung APRN-BAKERY PRODUCTS CHECKER [address] [address] documented as of this encounter Visit Diagnoses Not on filedocumented in this encounter Care Teams Bag Bailer Relationship Specialty Start Date End Date Sarah Lopez DO [address] [place] [address] Referring Physician Emergency Medicine 02/18/23 documented as of this encounter
--- OUTSIDE RECORDS SUMMARY | 2025-03-17 08:15 | XMS_ITS | Encounter Summary ---
Author Organization [facility] Address [address] [place] [address] Care Team Providers Care Family And Consumer Science Professor Name Role Phone Sarah Lopez DO Unavailable [phone] Encounter Details Date Type Department Care Team (Late st Contact Info) Description 02/19/2024 Clinisync Result Encounter N[facility]S External Department Unsolicited Maria Pendleton DO [address] [place] [address] Social History Tobacco Use Types Packs/Day Years [...] AM EDT Routine [facility] BCP OB [address] [facility] [place] [address] Priscilla Warren PA [address] [place] [address] 11/19/2025 10:50 AM EST Office Visit [facility] DERM [address] [place] [address] [place] [address] Kayleigh Chung, SENIOR MEDICAL TECHNOLOGIST-VICE SQUAD POLICE OFFICER [address] [place] [address] [place] [address] documented as of this encounter Procedures Procedure Name Priority Date/Time Associated Diagnosis Comments US PELVIS TRANSVAGINAL 02/19/2024 12:27 PM EDT documented in this encounter Results * US PELVIS TRANSVAGINAL (02/19/2024 12:27 PM EDT) Anatomical Region Laterality Modality Other 02/19/2024 12:2 7 PM EDT Narrative 02/19/2024 12:29 PM EDT [address] [address] Ultrasound Report Signed Patient: LEANDRA VALENTIN MR#: [id number] : 1990 Acct:[id number] Age/Sex: 33 / F ADM Date: 02/19/24 Loc: N[facility]S Attending Dr: Maria Pendleton D.O. Ordering Physician: Maria Pendleton D.O. Date of Service: 02/19/24 Procedure(s): US pelvis transvaginal Accession Number(s): [id number] cc: Maria Pendleton D.O.; Physician,Non-Staff M.D. [address] [address] Patient Name: LEANDRA VALENTIN MRN: [id number] date: 1990 Sex: F Assigned Patient Location: [facility] Current Patient Location: [facility] Accession/Order Number: [id number] Exam Date: 02/19/2024 11:18 Report Date: 02/19/2024 [...] Signed By: 02/19/24 1229 DD/ 1227 TD/TT: Atmospheric Technician: Procedure Note Radiology, Radiologist, MD - 02/19/2024 [place] [address] Ultrasound Report Signed Patient: LEANDRA VALENTIN GMR#: [id number] : 1990Acct:[id number] Age/Sex: Date: 02/19/24 Loc: [facility]S Attending Dr: Maria Pendleton D.O. Ordering Physician: Maria Pendleton D.O. Date of Service: 02/19/24 Procedure(s): US pelvis transvaginal Accession Number(s): [id number] cc: Maria Pendleton D.O.; Physician,Non-Staff Kacey The [place] [id number] Patient Name: LEANDRA VALENTIN MRN: [id number] date: 1990 Sex: F Assigned Patient Location: [facility] Current Patient Location: [facility] Accession/Order Number: [id number] Exam Date: 02/19/2024 11:18 Report Date: 02/19/2024 [...] M.D. Signed By:02/19/24 1229 DD/ 1227 TD/TT: Atmospheric Technician: us Maria Helder DO [facility] Final Result documented in this encounter Visit Diagnoses Not on filedocumented in this encounter Care Teams Family And Consumer Science Professor Relationship Specialty Start Date End Date aSrah Lopez DO [address] [place] [address] Referring Physician Emergency Medicine 02/18/23 documented as of this encounter
--- OUTSIDE RECORDS SUMMARY | 2025-03-17 08:15 | XMS_ITS | Encounter Summary ---
Author Organization [facility] Address [address] [place] [address] Care Team Providers Care Flavor Room Worker Name Role Phone Sarah Lopez DO Unavailable [phone] Encounter Details Date Type Department Care Team (Late st Contact Info) Description 09/15/2024 Abstract [facility] OB [address] [place] [address] Malcolm Pendleton [address] Mary Garcia, [place] [address] Social History Tobacco Use Types Packs/Day Years [...] [address] Priscilla Warren PA [address] [place], [facility]11 11/19/2025 10:50 AM EST Office Visit [facility] DERM [address] [facility] [address] [place] [address] Kayleigh Chung APRN-SHIP SELF DEFENSE SYSTEM MK1 OPERATOR [address] [address] documented as of this encounter Visit Diagnoses Not on filedocumented in this encounter Care Teams Flavor Room Worker Relationship Specialty Start Date End Date Sarah Lopez DO [address] [place] [address] Referring Physician Emergency Medicine 02/18/23 documented as of this encounter
--- OUTSIDE RECORDS SUMMARY | 2025-03-17 08:15 | XMS_ITS | Encounter Summary ---
Author Organization [facility] Address [address] [place] [address] Care Team Providers Care Turbine Room Attendant Name Role Phone Sarah Lopez DO Unavailable [phone] Encounter Details Date Type Department Care Team (Late st Contact Info) Description 03/10/2025 Bamboo flowsheet [facility] BCP OB [address] [facility] [place] [address] Malcolm Pendleton [address] [facility] [address] Mary Garcia, [place] [address] Social History Tobacco Use Types Packs/Day Years [...] [facility] BCP OB [address] [facility] [place] [address] Priscilla Warren PA [address] [facility] [address] [place] [address] 11/19/2025 10:50 AM EST Office Visit [facility] DERM [address] [facility] [address] [place] [address] Kayleigh Chung, HIGHWAY INSPECTOR-SHOE CASER [address] [facility] [address] [place] [address] documented as of this encounter Visit Diagnoses Not on filedocumented in this encounter Care Teams Turbine Room Attendant Relationship Specialty Start Date End Date Sarah Lopez DO [address] [place] [address] Referring Physician Emergency Medicine 02/18/23 documented as of this encounter
--- OUTSIDE RECORDS SUMMARY | 2025-03-17 08:15 | XMS_ITS | Encounter Summary ---
Author Organization [facility] Address [address] [place] [address] Care Team Providers Care Houseman Name Role Phone Sarah Lopez DO Unavailable [phone] Encounter Details Date Type Department Care Team (Late st Contact Info) Description 08/27/2024 Clinisync Result Encounter NOMS External Department Unsolicited Maria Pendleton DO [address] [place], [facility]11 Social History Tobacco Use Types Packs/Day Years [...] [address] [place] [address] Priscilla Warren PA [address] [facility] [address] 11/19/2025 10:50 AM EST Office Visit [facility] DERM [address] [place] [address] [place] [address] SariahKayleigh mares, COOLING TOWER TECHNICIAN-DIAPER MACHINE TENDER [address] [place] [address] documented as of this encounter Procedures Procedure Name Priority Date/Time Associated Diagnosis Comments US OB TRANSVAGINAL 08/27/2024 4: 27 AM EST documented in this encounter Results * US OB TRANSVAGINAL (08/27/2024 4:27 AM EST) Anatomical Region Laterality Modality Other 08/27/2024 4:27 AM EST Narrative 08/27/2024 4:30 [place] [address] Ultrasound Report Signed Patient: LEANDRA VALENTIN MR#: [id number] : 1990 Acct:[id number] Age/Sex: 34 / F ADM Date: 08/26/24 Loc: NOMS Attending Dr: Maria Pendleton D.O. Ordering Physician: Maria Pendleton D.O. Date of Service: 08/26/24 Procedure(s): US OB transvaginal Accession Number(s): [id number] cc: Maria Pendleton D.O.; Physician,Non-Staff M.DJorge The [address] [address] Patient Name: LEANDRA VALENTIN MRN: [id number] date: 1990 Sex: F Assigned Patient Location: [facility] Current Patient Location: Accession/Order Number: [id number] Exam Date: 08/26/2024 08:59 Report Date: 08/27/2024 [...] M.D. Signed By: 08/27/24429 DD/ 6 TD/TT: Director Of Critical Care: Procedure Note Radiology, Radiologist, MD - 08/27/2024 [place] [address] Ultrasound Report Signed Patient: LEANDRA VALENTIN GMR#: [id number] : 1990Acct:[id number] Age/Sex: 34 / FADM Date: 08/26/24 Loc: NOMS Attending Dr: Maria Pendleton D.O. Ordering Physician: Maria Pendleton D.O. Date of Service: 08/26/24 Procedure(s): US OB transvaginal Accession Number(s): [id number] cc: Maria Pendleton D.O.; Physician,Non-Staff M.DJorge The [place] [id number] Patient Name: LEANDRA VALENTIN MRN: [id number] date: 1990 Sex: F Assigned Patient Location: [facility] Current Patient Location: Accession/Order Number: [id number] Exam Date: 08/26/2024 08:59 Report Date: 08/27/2024 [...] Miguel M.D. Signed By:08/27/24429 DD/ 6 TD/TT: Director Of Critical Care: us Maria Pendleton DO [facility] Final Result documented in this encounter Visit Diagnoses Not on filedocumented in this encounter Care Teams Houseman Relationship Specialty Start Date End Date Sarah Lopez DO [address] [place] [address] Referring Physician Emergency Medicine 02/18/23 documented as of this encounter
--- OUTSIDE RECORDS SUMMARY | 2025-03-17 08:15 | XMS_ITS | Encounter Summary ---
Author Organization [facility] Address [address] [place] [address] Care Team Providers Care Circular Saw Edge Fuser Name Role Phone Sarah Lopez DO Unavailable [phone] Encounter Details Date Type Department Care Team (Late st Contact Info) Description 08/26/2024 Abstract N[facility] OB [address] [place] [address] Malcolm Pendleton [address] Mary Garcia, [place] [address] Social History Tobacco Use Types Packs/Day Years [...] Routine [facility] BCP OB [address] [facility] [place] [address] Priscilla Warren PA [address] [place], [facility] 11/19/2025 10:50 AM EST Office Visit [facility] DERM [address] [facility] [address] [place] [address] Kayleigh Chung APRN-AFLOAT CRYPTOLOGIC MANAGER [address] [address] documented as of this encounter Visit Diagnoses Not on filedocumented in this encounter Care Teams Circular Saw Edge Fuser Relationship Specialty Start Date End Date Sarah Lopez DO [address] [place] [address] Referring Physician Emergency Medicine 02/18/23 documented as of this encounter
--- OUTSIDE RECORDS SUMMARY | 2025-03-17 08:15 | XMS_ITS | Encounter Summary ---
Author Organization [facility] Address [address] [place] [address] Care Team Providers Care Nurse Private Duty Name Role Phone Sarah Lopez DO Unavailable [phone] Encounter Details Date Type Department Care Team (Late st Contact Info) Description 11/21/2024 Abstract [facility] OB [address] [place] [address] Malcolm Pendleton [address] Mary Garcia, [place] [address] Social History Tobacco Use Types Packs/Day Years [...] AM EDT Routine [facility] B[facility] OB [address] [place] [address] Priscilla Warren PA [address] [place], [facility] 11/19/2025 10:50 AM EST Office Visit [facility] [address] [facility] [address] [place] [address] Kayleigh Chung APRN-CERTIFIED HOME HEALTH AIDE [address] [address] documented as of this encounter Visit Diagnoses Not on filedocumented in this encounter Care Teams Nurse Private Duty Relationship Specialty Start Date End Date Sarah Lopez DO [address] [place] [address] Referring Physician Emergency Medicine 02/18/23 documented as of this encounter
[2025-03-17 08:18] VITALS: BP 125/66; PULSE 69
== END 2025-03-17 08:56 | disposition home or self-care (01) ==
LOC: FBCO 08:11 → FBC 08:15
PROVIDERS: Visit Provider Obstetrics & Gynecology
DX: O26.893 Other specified pregnancy related conditions, third trimester (principal)
CPT/HCPCS: 59025

== ENCOUNTER 2025-03-19 10:55 | Outpatient (OUT) | payer OTHER, MEDICAID, SELFPAY ==
--- NOTE | 2025-03-19 | US_ITS ---
The [place] [id number] Patient Name: LISHA FONSECA MRN: [id number] date: 1990 Sex: F Assigned Patient Location: [facility] Current Patient Location: [facility] Accession/Order Number: [id number] Exam Date: 03/19/2025 11:38 Report Date: 03/19/2025 11:40 At the request of: MARIA HARTLEY DO Procedure: US OB BPP w non-stress BIOPHYSICAL PROFILE: CLINICAL INFORMATION: HISTORY OF DELIVERY O 09.299 COMPARISON: 03/12/2025 There is a single live intrauterine gestation in cephalic presentation. The reported gestational age is 37 weeks 4 days. The heart rate measures 165 beats per minute. FINDINGS: TONE: 1 or more episodes of activity extension and flexion of extremity or opening and closing of the hand [Y] 2/2 GROSS BODY MOVEMENTS: 3 or more discrete body or limb movements [Y] 2/2 BREATHING MOVEMENTS: 1 or more episodes of breathing lasting at least 30 seconds [Y] 2/2 VIDA: A single deepest vertical pocket of amniotic fluid greater than 2 cm [Y] 2/2 VIDA: 18.7 cm. This is in upper normal range. Total score: 8/8 US/US OB BPP w non-stress IMPRESSION: NORMAL BIOPHYSICAL PROFILE Impression dictated by: Michell Miller M.D. 03/19/2025 11:40 AM Dictation Location: [place] [address] Electronically authenticated by: [id number] Y Date: 03/19/2025 11:40
[2025-03-19 11:29] VITALS: BP 105/68; PULSE 72
== END 2025-03-19 12:04 | disposition home or self-care (01) ==
LOC: US 10:55 → FBC 11:01
PROVIDERS: Visit Provider Obstetrics & Gynecology
DX: O09.299 Supervision of pregnancy with other poor reproductive or obstetric history, unspecified trimester (principal); Z3A.37 37 weeks gestation of pregnancy
CPT/HCPCS: 76818

== ENCOUNTER 2025-03-23 08:06 | Outpatient (OUT) | payer OTHER, MEDICAID, SELFPAY ==
--- OUTSIDE RECORDS SUMMARY | 2022-11-20 08:27 | XMS_ITS | Continuity of Care Document ---
Author Organization [facility] Address [address] [place] [address] Phone Care Team Providers Care Rag Cutting Machine Operator Name Role Phone Dawson Hernandez Unavailable Unavailable [...] Diagnoses Date Provider Providers Copied on Encounter [facility], [address] [place], [place], [address], [place] tel:[phone] [facility] No Information Nov-0 3 Vida Conrad. [address] [place], [place], [address] , [place]. tel:[phone] [facility], [address] [place], [place], [address], [place] tel:[phone] [facility] No Information Elinaruchi Dawson. [address] [place], [place], [address] , [place]. tel: [phone] PREV VISIT, NEW, AGE 18-39 [facility], [address] [place], [place], [address], [place] tel:[phone] [facility] establish care (chief complaint)b irth control (chief complaint) Gynecological ExaminationOther specified contraceptive management 4 Prashanth [facility] Maggy. [address] [place], [place], [address] , [place]. tel: [phone] Family History Family Member Type Diagnosis Age [...] Registry Payers Payer name Insurance type Covered democrat ID Authoriza tion(s) [facility] CI [id number] Medicaid Wrap - [facility] [place] [id number] [facility] [id number] Medicaid [place] - [facility] [place] [id number] Social History Type Description Quantity Date Captured [...]
--- OUTSIDE RECORDS SUMMARY | 2024-07-23 09:30 | XMS_ITS ---
Author Organization [facility] Address [address] [place] [address] Care Team Providers Care Mail Officer Name Role Phone Yudelka Lopez Primary Care Provider Dr. Leroy Salazar Unavailable [phone] REASON FOR VISIT cough, congestion Encounters Encounter Location Date Provider Diagnosis [facility] [address] [place] [address] 07/23/2024 Yudelka Lopez Plan Of Treatment No Information Progress Notes * LISHA FONSECA GDOB: [birth year] (34 yo F)Acc No.[id number]:07/23/2024 PROGRESS NOTES Patient: Deb SANCHEZ LISHA Moe Provider: Rowan Lopez :1990 A ge:34 Y S ex:Female Date:07/23/2024 Address:[address], [id number] Subjective: * Chief Complaints: * 1 . Cough, congestion. * Medical History: Objective: * Vitals: Assessment: Plan: * Treatment: * Images: * Electronic signature of Howard Lopez CNP on 03/23/2025 at 08:08 AM EDT Sign off status: Pending * Provider: Rowan Lopez Date: 09/22/2023 Generated for Damon dailey/Timothy/eTbridget on: 0 03/23/2025 08:08 AM EDT
--- OUTSIDE RECORDS SUMMARY | 2024-11-28 05:20 | XMS_ITS ---
Author Organization [facility] Servic es Address [address] [facility] [place] [address] Care Team Providers Care Heel Molder Name Role Phone Yudelka Lopez Primary Care Provider Dr. Leroy Salazar Unavailable [phone] REASON FOR VISIT new pt Encounters Encounter Location Date Provider Diagnosis [facility] Services [address] [place] [address] 11/28/2024 Leroy Salazar Plan Of Treatment No Information Progress Notes * LISHA FONSECA GDOB: [birth year] (34 yo F)Acc No.[id number]:11/28/2024 Patient: ISAAK MALCOLMLEY Moe Provider: Deb Salazar DDS :1990 A ge:34 Y S ex:Female Date:11/28/2024 Address:[address] [place] [address], [address], [id number] Pcp:Yudelka Lopez Subjective: * Chief Complaints: * 1 . New pt. * Medical History: Objective: * Vitals: Assessment: Plan: * Treatment: * Images: * Electronic signature of Dr. Leroy Salazar , DMD on 03/23/2025 at 08:09 AM EDT Sign off status: Pending * Provider: Deb Salazar DDS Date: 11/28/2024 Generated for Printi ng/Faxing/eTransmitting on: 03/23/2025 08:09 AM EDT
--- OUTSIDE RECORDS SUMMARY | 2025-03-10 11:10 | XMS_ITS | Encounter Summary ---
Author Organization [facility] Address [address] [place] [address] Care Team Providers Care Composition Weatherboard Applier Name Role Phone Sarah Lopez DO Unavailable [phone] Encounter Details Date Type Department Care Team (Late st Contact Info) Description 03/10/2025 11:10 AM EDT Routine [facility] [address] [place] [address] Malcolm Pendleton DO [address] Mary Garcia, [place] [address] Third trimester ([facility]) Social History Tobacco Use Types Packs/Day Years [...] Diagnosis Date Noted 10 weeks gestation of ([facility]) 09/11/2024 First trimester ([facility]) 09/11/2024 Resolved Ambulatory Problems Diagnosis Date Noted [...] function studies Acid reflux 02/2017 [facility] Alpha thalassemia silent carrier Anemia Endometriosis Fibroid, uterine History of anemia History of hyperthyroidism Hypothyroidism Irregular menses Menometrorrhagia Nontoxic multinodular goiter Overweight (BMI 25.0-29.9) Syncope 06/2016 [facility] Varicella zoster Vitamin [...] nursing note reviewed. Exam conducted with a soft shoe dancer present. Vitals: Estimated body mass index is [...] Upcoming Encounters Date Type Department Care Team ([facility] Contact Info) Description 11/19/2025 10:50 AM EST Office Visit [facility] [address] [place] [address] Kayleigh Chung APRN-STREETCAR STARTER [address] [place] [address] Scheduled Orders Name Type Priority Associated Diagnoses Orde r Schedule CULTURE, GROUP B STREP WITH SUSCEPTIBLITY Lab Routine Third trimester ([facility]) Expected: 03/10/2025, Expires: 03/10/2026 documented as of this encounter Visit Diagnoses Diagnosis Third trimester ([facility]) state, incidental documented in this encounter Care Teams Composition Weatherboard Applier Relationship Specialty Start Date End Date Sarah Lopez DO [address] [place] [address] Referring Physician Emergency Medicine 02/18/23 documented as of this encounter
--- OUTSIDE RECORDS SUMMARY | 2025-03-17 11:30 | XMS_ITS | Encounter Summary ---
Author Organization [facility] Address [address] [place] [address] Care Team Providers Care Drilling Assistant Name Role Phone Sarah Lopez DO Unavailable [phone] Reason for Visit * Reason Comments Routine Visit Encounter Details Date Type Department Care Team (Late st Contact Info) Description 03/17/2025 11:30 AM EDT Routine [facility] BCP OB [address] [address] Priscilla Warren PA [address] [facility] [place] [address] Third trimester ([facility]); 37 weeks gestation of ([facility]); HSV (herpes simplex virus) infection; Anemia, unspecified type; Alpha thalassemia silent carrier; Pre-eclampsia in third trimester ([facility]) Social History Tobacco Use Types Packs/Day Years [...] Sign Reading Time Taken Comments Blood Pressure 122/74 03/17/2025 12:00 PM EDT Pulse - - Temperature - - Respiratory Rate - - Oxygen Saturation - - Inhaled Oxygen Concentration - - Weight 95.7 kg (211 lb) 03/17/2025 12:00 PM EDT Height - - Body Mass Index 37.38 02/19/2024 10:46 AM EDT documented in this encounter Progress Notes * CAROLA Patton - 03/17/2025 11:30 AM EDT Reason for Appointment: Patient ID: Leandra Valentin is a 34 y.o. female who presents for Routine Visit Patient presents today for Return OB appointment. MEDICATIONS Current Outpatient Medications Medication Instructions amoxicillin (AMOXIL) 1,000 mg, 2 times daily triamcinolone (Kenalog) 0.1 % cream Apply to [...] Diagnosis Date Noted 10 weeks gestation of ([facility]) 09/11/2024 First trimester ([facility]) 09/11/2024 Resolved Ambulatory Problems Diagnosis Date Noted [...] thyroid function studies Acid reflux 02/2017 [facility] Alpha thalassemia silent carrier Anemia Endometriosis Fibroid, uterine History of anemia History of hyperthyroidism Hypothyroidism Irregular menses Menometrorrhagia Nontoxic multinodular goiter Overweight (BMI 25.0-29.9) Syncope 06/2016 [facility] Varicella zoster Vitamin D deficiency Social [...] reviewed. Vitals: Estimated body mass index is 37.38 kg/m² as calculated from the following: Height as of 02/19/24: 5' 3 . Weight as of this encounter: 211 lb. BP: 122/74 Patient's last menstrual period was 06/23/2024. ASSESSMENT & PLAN ICD-10-CM 1. Third trimester ([facility]) Z34.93 POCT urinalysis dipstick manually resulted 2. 37 weeks gestation of ([facility]) Z3A.37 3. HSV (herpes simplex virus) infection B00.9 4. Anemia, unspecified type D64.9 5. Alpha thalassemia silent carrier D56.3 6. Pre-eclampsia in third trimester ([facility]) O14.93 Return OB: Patient presents today for a routine obstetrics appointment. Patient is currently 37w2d . Patient states she is doing well but has complaints of being tired due to current . Patient is scheduled for a C/S for 03/30/2025 and complaining of lots of vaginal pressure. Pt states she hasalso been experiencing contractions. Pt desires to be checked at today's visit. Patient has verbalizes frequent movement. labor precautions was discussed/given and patient was instructed to perform kick counts three times a day. Orders Placed This Encounter Procedures POCT urinalysis dipstick manually resulted Follow Up: Patient is to return to office in 1 week for routine OB appointment. Documented by Christy Cui MA on behalf of: CAROLA Patton documented in this encounter Plan of Treatment Upcoming Encounters Date Type Department Care Team (Late st Contact Info) Description 11/19/2025 10:50 AM EST Office Visit [facility] [address] [place] [address] Kayleigh Chung APRN-HYPO SPLASHER [address] [place] [address] documented as of this encounter Procedures Procedure Name Priority Date/Time Associated Diagnosis Comments POCT URINALYSIS DIPSTICK Routine 03/17/2025 12:01 PM EDT Third trimester ([facility]) documented in this encounter Results * (ABNORMAL) POCT urinalysis dipstick manually resulted (03/17/2025 12:01 PM EDT) Color, UA Yellow Clarity, UA Clear Glucose, UA Negative Negative - 2000(110) ++++ mg/dL Bilirubin, UA Negative Negative - 4(70) +++ mg/dL Ketones, UA Negative Negative - 160(16) ++++ mg/dL Spec Grav, UA 1.010 1 - 1.03 Blood, UA Positive Negative - 50 Hong/mcL Comment:trace pH, UA 7.0 5 - 9 Protein, UA Negative Negative - 2000(20) ++++ mg/dL Urobilinogen, UA 1.0 0.2 - 12 mg/dL Leukocytes, UA Many Negative - 500+++ Iqra/mcL Comment:large Nitrite, UA Negative Negative - Positive Urine 03/17/2025 12:0 1 PM EDT Priscilla SRIVASTAVA POINT OF CARE TEST ENTER/EDIT OR DERABLES Final Result documented in this encounter Visit Diagnoses Diagnosis Third trimester ([facility]) state, incidental 37 weeks gestation of ([facility]) HSV (herpes simplex virus) infection Herpes simplex without mention of complication Anemia, unspecified type Alpha thalassemia silent carrier Pre-eclampsia in third trimester ([facility]) documented in this encounter Care Teams Drilling Assistant Relationship Specialty Start Date End Date Sarah Lopez DO [address] [place] [address] Referring Physician Emergency Medicine 02/18/23 documented as of this encounter
--- OUTSIDE RECORDS SUMMARY | 2025-03-23 08:08 | XMS_ITS | Clinical Summary ---
Author Organization [facility] Address [address] [place] [address] Phone Care Team Providers Care Professor Of Mechanical Engineering Name Role Phone Yudelka Lpoez APRN-CERT PHARMACY TECH Primary Care Provider + Social History Tobacco [...] - 2023-2 5 season) 2024 Influenza Vaccine (#1) 2025 Zoster Vaccines (1 of 2) 2042 [...] this topic Medical Devices Implanted Type Area Supervisor Core Drilling Device Identifier Shelf Expiration Date Model / Serial / Lot Mesh, Softmesh 3 X 6, Flat Case [id number] Implanted:Qty: 1 on 04/03/2022 by Sly Crocker MD MPH Mesh Abdomen DAVOL 05/14/2024 [id number] / / [id number] Description:Converted from [facility]. Please see archived information for full log information. Care Teams Professor Of Mechanical Engineering Relationship Specialty Start Date End Date Yudelka Lopez, THERMAL SURFACING MACHINE OPERATOR-CERT PHARMACY TECH [address] [place] [address] PCP - General 01/20/23
--- OUTSIDE RECORDS SUMMARY | 2025-03-23 08:08 | XMS_ITS | Encounter Summary ---
Author Organization [facility] Address [address] [place] [address] Phone Care Team Providers Care Turner In Name Role Phone Yudelka Lopez Primary Care Provider + Encounter Details Date Type Department Care Team (Late st Contact Info) Description 03/31/2022 Orders Only [facility] [address] [place] [address] Conversion, Onbase Social History Tobacco Use Types [...] on filedocumented in this encounter Care Teams Turner In Relationship Specialty Start Date End Date Yudelka Lopez APRN-CNP [address] [place] [address] PCP - General 01/20/23 documented as of this encounter
--- OUTSIDE RECORDS SUMMARY | 2025-03-23 08:08 | XMS_ITS | Clinical Summary ---
Author Organization [facility] Address [address] [place] [address] Care Team Providers Care Pain Medicine Physician Name Role Phone Unavailable Primary Care Provider [...] 06/13 Cervical Cancer Screening 2013 Covid-19 Vaccine ( season) 2024 Influenza Vaccine (#1) 2025 DTaP,Tdap,Td Vaccine (2 - Td or Tdap) 01/09/2026 Insurance [facility] [place]
--- OUTSIDE RECORDS SUMMARY | 2025-03-23 08:10 | XMS_ITS | Encounter Summary ---
Author Organization [facility] Address [address] [facility] [place] [address] Care Team Providers Care Christmas Tree Farmer Name Role Phone Sarah Lopez DO Unavailable [phone] Encounter Details Date Type Department Care Team (Late st Contact Info) Description 08/27/2024 Clinisync Result Encounter [facility] External Department Unsolicited Maria Pendleton DO [address] [facility] [address] [facility] [place] [address] Social History Tobacco Use Types Packs/Day Years [...] Office Visit [facility] [address] [place] [address] Kayleigh Chung, KINDERGARTEN INSTRUCTIONAL ASSISTANT-COMMAND AND CONTROL OFFICER [address] [place], [place] [address] documented as of this encounter Procedures Procedure Name Priority Date/Time Associated Diagnosis Comments US OB TRANSVAGINAL 08/27/2024 4: 27 AM EST documented in this encounter Results * US OB TRANSVAGINAL (08/27/2024 4:27 AM EST) Anatomical Region Laterality Modality Other 08/27/2024 4:27 AM EST Narrative 08/27/2024 4:30 [place] [address] Ultrasound Report Signed Patient: LEANDRA FONSECA MR#: [id number] : 1990 Acct:[id number] Age/Sex: 34 / F ADM Date: 08/26/24 Loc: [facility] Attending Dr: Maria Pendleton D.O. Ordering Physician: Maria Pendleton D.O. Date of Service: 08/26/24 Procedure(s): US OB transvaginal Accession Number(s): [id number] cc: Maria Pendleton D.O.; Physician,Non-Staff Kacey [address] [address] Patient Name: LEANDRA FONSECA MRN: [id number] date: 1990 Sex: F Assigned Patient Location: [facility] Current Patient Location: Accession/Order Number: [id number] Exam Date: 08/26/2024 08:59 Report Date: 08/27/2024 [...] Dictated By: Praneeth Miguel M.D. Signed By: 08/27/240 DD/ 6 TD/TT: Sales Professional Bilingual: Procedure Note Radiology, Radiologist, MD - 08/27/2024 [place] [address] Ultrasound Report Signed Patient: LEANDRA FONSECA GMR#: [id number] : 1990Acct:[id number] Age/Sex: 34 / FADM Date: 08/26/24 Loc: [facility] Attending Dr: Maria Pendleton D.O. Ordering Physician: Maria Pendleton D.O. Date of Service: 08/26/24 Procedure(s): US OB transvaginal Accession Number(s): [id number] cc: Maria Pendleton D.O.; Physician,Non-Staff Kacey [facility] [place] [id number] Patient Name: LEANDRA FONSECA MRN: [id number] date: 1990 Sex: F Assigned Patient [facility]: [facility] Current Patient Location: Accession/Order Number: [id number] Exam Date: 08/26/2024 08:59 Report Date: 08/27/2024 [...] Miguel M.D. Signed By:08/27/24429 DD/ 6 TD/TT: Sales Professional Bilingual: us Maria Pendleton DO [facility] Final Result documented in this encounter Visit Diagnoses Not on filedocumented in this encounter Care Teams Christmas Tree Farmer Relationship Specialty Start Date End Date Sarah Lopez DO [address] [place] [address] Referring Physician Emergency Medicine 02/18/23 documented as of this encounter
--- OUTSIDE RECORDS SUMMARY | 2025-03-23 08:10 | XMS_ITS | Clinical Summary ---
Author Organization [facility] Address [id number] [address] [place] [address] Care Team Providers Care Epic Interface Analyst Name Role Phone No Pcp, No Pcp [...] Team Description 02/26/2025 Telephone Maternal- Medicine at [facility] [address] [place] [address] Caroline Chavira RN 02/04/2025 Telephone Maternal Medicine [place] [address] [place] [address] Josey Valentine 01/28/2025 Orders Only Maternal- Medicine at [facility] [address] [place] [address] Marci Coppola CMA Thalassemia alpha carrier (Primary Dx); Family history of sickle cell trait; Family history of DVT; History of anemia; Choroid plexus cyst of fetus affecting care of mother, antepartum, fetus 1; Abnormal genetic test during ; Previous delivery affecting , antepartum; History of pre-eclampsia in prior , currently in first trimester 01/28/2025 Telephone Maternal Medicine [place] [address] [place] [address] Josey Valentine 01/27/2025 9:56 AM EDT - 01/27/2025 11:59 PM EDT Hospital Encounter [facility] - Ultrasound [address] [place] [address] History of anemia Discharge Disposition: Home 01/27/2025 Travel 01/13/2025 9:00 AM EDT - 01/13/2025 11:59 PM EDT Hospital Encounter [facility] - Ultrasound [address] [place] [address] Alpha thalassemia silent carrier Discharge Disposition: Home 01/13/2025 Travel from Last 3 Months Family History [...] 9:29 AM EDT Alpha thalassemia silent carrier from Last 3 Months Results * US MFM OB FOLLOW-UP, 1 FETUS (01/27/2025 10:46 AM EDT) Only the most recent of2 resultswithin the time period is included. Anatomical Region Laterality Modality OB-HOME AND SCHOOL VISITOR Ultrasound 01/27/2025 10:0 9 AM EDT Narrative 01/27/2025 11:10 AM EDT NAME: MARIAN HUSAIN : 1990 SEX: F Accession Number: [id number] ORDERING PHYSICIAN: TOREY MONTGOMERY REFERRING PHYSICIAN: MARIA HRATLEY Coding ----- --------- Procedures 71923: Follow-up Ultrasound, per fetus 96567: Doppler velocimetry, ; middle cerebral artery Indication [...] EFW (oz) 3 oz EFW by: Hadlock (EIT-FX-YO-FL) Extended Tibia 48.0 mm 29w 0d 16% Osiel Transcription Manager 3.6 mm CM 5.9 mm 19% [...] Heart/Thorax: 4-chamber view. RVOT view. LVOT view. 1-mdfcfx-oucylmy view. Situs. Aortic arch view. Bicaval view. [...] PI 1.99 30% Ebbing RI 0.84 71% [facility] PS 50.72 cm/s PS 1.24 MoM ED [...] HUSAIN : 1990 SEX: F Accession Number: [id number] ORDERING PHYSICIAN: TOREY MONTGOMERY REFERRING PHYSICIAN: MARIA HARTLEY Coding ----- --------- Procedures 89496: Follow-up Ultrasound, per fetus [address]: Doppler velocimetry, ; middle cerebral artery Indication [...] EFW (oz) 3 oz EFW by: Hadlock (MQG-QK-LV-FL) Extended Tibia 48.0 mm 29w 0d 16% Osiel Transcription Manager 3.6 mm CM 5.9 mm 19% [...] Heart/Thorax: 4-chamber view. RVOT view. LVOT view. 1-nulyod-dknurbh view.Situs. Aortic arch view. Bicaval view. Ductal [...] PI 1.99 30% Ebbing RI 0.84 71% [facility] PS 50.72 cm/s PS 1.24 MoM ED [...] byprimary OB provider unless otherwise specified by [facility]. Results forwarded to ordering provider so they can follow up with thepatient as necessary. us Torey Montgomery MD [facility] ORDERABLES Final Resul t from Last 3 Months Insurance [employer] [place] [employer] Care Teams Epic Interface Analyst Relationship Specialty Start Date End Date No Pcp, No Pcp [place] [address] PCP - General Family Medicine 02/21/24
--- OUTSIDE RECORDS SUMMARY | 2025-03-23 08:10 | XMS_ITS | Encounter Summary ---
Author Organization [facility] Address [address] [place] [address] Care Team Providers Care Fuel Distribution System Operator Name Role Phone Sarah Lopez DO Unavailable [phone] Encounter Details Date Type Department Care Team (Late st Contact Info) Description 11/21/2024 External Result Encounter [facility] OB [address] [place] [phone] Maria Pendleton DO [address] Mary Garcia, [place] [address] Social History Tobacco Use Types Packs/Day Years [...] DERM [address] [place] [address] Kayleigh Chung, SIDE GLUER-SMART GRID ENGINEER [address] [place] [address] documented as of this encounter Procedures Procedure Name Priority Date/Time Associated Diagnosis Comments US OB 14+ WEEKS ANATOMY SCAN 11/21/2024 3:40 PM EST documented in this encounter Results * US OB 14+ weeks anatomy scan (11/21/2024 3:40 PM EST) Anatomical Region Laterality Modality Body Ultrasound 11/21/2024 3:40 PM EST Narrative 11/21/2024 3:40 PM EST THIS EXAM WAS PERFORMED AT [facility] NAME: MARIAN HUSAIN : 1990 SEX: F Accession Number: [id number] ORDERING PHYSICIAN: HENNY MONTGOMERY REFERRING PHYSICIAN: MARIA PENDLETON Coding ----- --------- Procedures 49397: Ultrasound, uterus, real time with image documentation, and maternal evaluation plus detailed anatomic examination, transabdominal approach;single or first gestation 84821: Transvaginal Ultrasound (OB) Indication ----- --------- Screening [...] 0 lb 13 oz EFW by Hadlock (EGO-RS-CJ-FL) Head / Face / Neck Biometry: Cephalic index 0.73 5% Nicolaides Boring Machine Set Up Operator 4.4 mm CM 4.2 mm 20% [...] Heart / Thorax RVOT view. LVOT view. 1-ltogsn-lbyhdgt view. Bicaval view. Extremities / Left hand. [...] Right choroid plexus cyst is identified. Per [facility] guidelines, isolated chorioid plexus cysts (CPCs) [...] - 11/21/2024 THIS [facility]AM WAS PERFOR[facility] AT [facility] NAME: MARIAN HUSAIN : 1990 SEX: F Accession Number: [id number] ORDERING PHYSICIAN: HENNY MONTGOMERY REFERRING PHYSICIAN: MARIA PENDLETON Coding ----- --------- Procedures 56184: Ultrasound, uterus, real time with imagedocumentation, and maternal evaluation plus detailed anatomic examination, transabdominalapproach;single or first gestation 30090: Transvaginal Ultrasound (OB) Indication ----- --------- Screening [...] Cerebellum tr 22.3 mm 20w 6d 72% [place] Nuchal fold 4.7 mm AC 158.7 mm 21w 0d 53% Hadlock Femur 34.1 mm 20w 5d 41% Hadlock Humerus 31.9 mm 20w 5d 46% Osiel HC / AC 1.12 26% Hadlock Weight Calculation: EFW 376 g 47% Hadlock EFW (lb,oz) 0 lb 13 oz EFW by Hadlock (HGB-CT-HC-FL) Head / Face / Neck Biometry: Cephalic index 0.73 5% Nicolaides Boring Machine Set Up Operator 4.4 mm CM 4.2 mm 20% [...] Heart / Thorax RVOT view. LVOT view. 4-jggxaa-htxbbne view. Bicavalview. Extremities / Left hand. Skeleton [...] Right choroid plexus cyst is identified. Per [facility] guidelines, isolated chorioid plexus cysts (CPCs) [...] on filedocumented in this encounter Care Teams Fuel Distribution System Operator Relationship Specialty Start Date End Date Sarah Lopez DO [address] [place] [address] Referring Physician Emergency Medicine 02/18/23 documented as of this encounter
--- OUTSIDE RECORDS SUMMARY | 2025-03-23 08:10 | XMS_ITS | Encounter Summary ---
Author Organization [facility] Address [address] [place] [address] Care Team Providers Care Skydiving Instructor Name Role Phone Sarah Lopez DO Unavailable [phone] Encounter Details Date Type Department Care Team (Late st Contact Info) Description 01/06/2025 Results Follow-Up [facility] OB [address] [place] [address] Suze Lopez LPN [address] [place] [id number] Social History Tobacco Use Types Packs/Day Years [...] DERM [address] [place] [address] Kayleigh Chung APRN-HEALTH AID [address] [facility] [address] [place] [address] documented as of this encounter Visit Diagnoses Not on filedocumented in this encounter Care Teams Skydiving Instructor Relationship Specialty Start Date End Date Sarah Lopez DO [address] [place] [address] Referring Physician Emergency Medicine 02/18/23 documented as of this encounter
--- OUTSIDE RECORDS SUMMARY | 2025-03-23 08:10 | XMS_ITS | Encounter Summary ---
Author Organization [facility] Address [address] [place] [address] Care Team Providers Care Ship Scaler Name Role Phone Sarah Lopez DO Unavailable [phone] Encounter Details Date Type Department Care Team (Late st Contact Info) Description 02/19/2024 Clinisync Result Encounter [facility] External Department Unsolicited Maria Pendleton, DO [address] [place] [address] Social History Tobacco Use Types Packs/Day Years [...] Office Visit [facility] DERM [address] [place] [address] Kayleigh Chung, TESTER OPERATOR HELPER-TOUR LEADER [address] [place] [address] documented as of this encounter Procedures Procedure Name Priority Date/Time Associated Diagnosis Comments US PELVIS TRANSVAGINAL 02/19/2024 12:27 PM EDT documented in this encounter Results * US PELVIS TRANSVAGINAL (02/19/2024 12:27 PM EDT) Anatomical Region Laterality Modality Other 02/19/2024 12:2 7 PM EDT Narrative 02/19/2024 12:29 [place] [address] Ultrasound Report Signed Patient: LEANDRA FONSECA MR#: [id number] : 1990 Acct:[id number] Age/Sex: 33 / F ADM Date: 02/19/24 Loc: [facility] Attending Dr: Maria Pendleton D.O. Ordering Physician: Maria Pendleton D.O. Date of Service: 02/19/24 Procedure(s): US pelvis transvaginal Accession Number(s): [id number] cc: Maria Pendleton D.O.; Physician,Non-Staff [place] [address] Patient Name: LEANDRA FONSECA MRN: [id number] date: 1990 Sex: F Assigned Patient Location: [facility] Current Patient Location: [facility] Accession/Order Number: [id number] Exam Date: 02/19/2024 11:18 Report Date: 02/19/2024 [...] No free pelvic fluid. Electronically authenticated by: DIDI WOOD Date: 02/19/2024 12:27 Dictated By: Didi Wood M.D. Signed By: 02/19/24 1229 DD/ 1227 TD/TT: Director Of First Impressions: Procedure Note Radiology, Radiologist, MD - 02/19/2024 [place] [address] Ultrasound Report Signed Patient: LEANDRA FONSECA GMR#: [id number] : 1990Acct:[id number] Age/Sex: 33 / FADM Date: 02/19/24 Loc: [facility] Attending Dr: Maria Pendleton D.O. Ordering Physician: Maria Pendleton D.O. Date of Service: 02/19/24 Procedure(s): US pelvis transvaginal Accession Number(s): [id number] cc: Maria Pendleton D.O.; Physician,Non-Staff Kacey [address] [place] [id number] Patient Name: LEANDRA FONSECA MRN: [id number] date: 1990 Sex: F Assigned Patient Location: [facility] Current Patient Location: [facility] Accession/Order Number: [id number] Exam Date: 02/19/2024 11:18 Report Date: 02/19/2024 [...] No free pelvic fluid. Electronically authenticated by: DIDI WOOD Date: 02/19/2024 12:27 Dictated By: Didi Wood M.D. Signed By:02/19/24 1229 DD/ 1227 TD/TT: Director Of First Impressions: us Maria Pendleton DO [facility] Final Result documented in this encounter Visit Diagnoses Not on filedocumented in this encounter Care Teams Ship Scaler Relationship Specialty Start Date End Date Sarah Lopez DO [address] [place] [address] Referring Physician Emergency Medicine 02/18/23 documented as of this encounter
--- OUTSIDE RECORDS SUMMARY | 2025-03-23 08:10 | XMS_ITS | Encounter Summary ---
Author Organization [facility] Address [address] [place] [address] Care Team Providers Care Diesel Mechanic Construction Name Role Phone Sarah Lopez DO Unavailable [phone] Encounter Details Date Type Department Care Team (Late Contact Info) Description 11/24/2024 Abstract [facility] OB [address] [place] [phone] Malcolm Pendleton [address] [place], [place] [address] Social History Tobacco Use Types Packs/Day Years [...] Office Visit [facility] DERM [address] [place] [phone] Kayleigh Chung, MOTOR VEHICLE ASSEMBLER-LOBSTER MAN [address] [place] [address] documented as of this encounter Visit Diagnoses Not on filedocumented in this encounter Care Teams Diesel Mechanic Construction Relationship Specialty Start Date End Date Sarah Lopez DO [address] [place] [address] Referring Physician Emergency Medicine 02/18/23 documented as of this encounter
--- OUTSIDE RECORDS SUMMARY | 2025-03-23 08:10 | XMS_ITS | Encounter Summary ---
Author Organization [facility] Address [address] [facility] [place] [address] Care Team Providers Care Hospital Account Manager Name Role Phone Sarah Lopez DO Unavailable [phone] Encounter Details Date Type Department Care Team (Late Contact Info) Description 03/17/2025 Bamboo flowsheet [facility] BCP OB [address] [facility] [place] [phone] Priscilla Warern PA [address] [facility] [address] [place], [facility] Social History Tobacco Use [...] DERM [address] [place] [phone] Kayleigh Chung, BELLMAN CAPTAIN-EMERGENCY SERVICE WORKER [address] [place] [address] documented as of this encounter Visit Diagnoses Not on filedocumented in this encounter Care Teams Hospital Account Manager Relationship Specialty Start Date End Date Sarah Lopez DO [address] [place] [address] Referring Physician Emergency Medicine 02/18/23 documented as of this encounter
--- OUTSIDE RECORDS SUMMARY | 2025-03-23 08:10 | XMS_ITS | Encounter Summary ---
Author Organization [facility] Address [address] [place] [address] Care Team Providers Care Coremaker Experimental Name Role Phone Sarah Lopez DO Unavailable [phone] Encounter Details Date Type Department Care Team (Late st Contact Info) Description 02/16/2025 Abstract [facility] OB [address] [place] [address] Maggy Sanz LPN Social History Tobacco Use [...] DERM [address] [place] [address] Kayleigh Chung, DAY CARE ATTENDANT-MANAGER OF LEARNING [address] [place] [address] documented as of this encounter Visit Diagnoses Not on filedocumented in this encounter Care Teams Coremaker Experimental Relationship Specialty Start Date End Date Sarah Lopez DO [address] [place] [address] Referring Physician Emergency Medicine 02/18/23 documented as of this encounter
--- OUTSIDE RECORDS SUMMARY | 2025-03-23 08:10 | XMS_ITS | Clinical Summary ---
Author Organization [facility] Address [address] [place] [address] Care Team Providers Care Certified Novell Administrator Name Role Phone Sarah Lopez DO Unavailable [phone] Allergies Active Allergy Reactions Criticality Noted Date [...] Date Diagnosed Date 10 weeks gestation of ([facility]) 2023 First trimester ([facility]) 09/11/2024 Estimated Date of Delivery Comme nts Yes 04/05/2025 Based on Ultraso und Encounters Date Type Department Care Team Description 03/19/2025 Clinisync Result Encounter [facility] External Department Unsolicited Maria Pendleton, DO 03/17/2025 11:30 AM EDT Routine [facility] OB [address] [place] [address] Priscilla Warren PA Third trimester ([facility]); 37 weeks gestation of ([facility]); HSV (herpes simplex virus) infection; Anemia, unspecified type; Alpha thalassemia silent carrier; Pre-eclampsia in third trimester ([facility]) 03/17/2025 Bamboo flowsheet [facility] OB [address] [facility] [place] [address] Priscilla Warren PA 03/15/2025 Abstract [facility] OB [address] [place] [address] Maria Pendleton, DO 03/12/2025 Clinisync Result Encounter [facility] External Department Unsolicited Maria Pendleton, DO 03/10/2025 11:10 AM EDT Routine [facility] OB [address] [place] [address] Maria Pendleton, DO Third trimester ([facility]) 03/10/2025 Bamboo flowsheet [facility] OB [address] [place] [address] Maria Pendleton, DO 03/05/2025 Clinisync Result Encounter [facility] External Department Unsolicited Maria Pendleton, DO 02/26/2025 Clinisync Result Encounter [facility] External Department Unsolicited Maria Pendleton, DO 02/24/2025 11:40 AM EDT Routine [facility] [address] [place] [address] Maria Pendleton, DO 34 weeks gestation of ([facility]); Third trimester ([facility]) 02/24/2025 Bamboo flowsheet NOM[facility] [address] [place] [address] Maria Pendleton, DO 02/20/[address] [address] [place] [address] Mary Cruz, [place] 02/19/2025 Clinisync Result Encounter N[facility]S External Department Unsolicited Maria Pendleton, DO 02/16/2025 Abstract [facility] [address] [place] [address] Maggy Sanz, LOOM REPAIRER 02/12/2025 Clinisync Result Encounter [facility] External Department Unsolicited Maria Pendleton, DO 02/11/2025 10:50 AM EDT Routine NOMS [address] [place] [address] Priscilla Warren PA Third trimester ([facility]); 32 weeks gestation of ([facility]); Nausea 02/11/2025 Bamboo flowsheet NOM[facility] [address] [place] [address] Priscilla Warren PA 02/04/[address] [address] [place] [address] Suze Lopez, LOOM REPAIRER 01/30/2025 Abstract [facility] [address] [place] [address] Mary Cruz, [place] 01/28/2025 External Result Encounter N[facility]S External Department Unsolicited Priscilla Warren PA 01/27/2025 8:30 AM EDT Routine NOM[facility] [address] [place] [address] Maria Pendleton, DO Third trimester ([facility]); 30 weeks gestation of ([facility]); H/O pre-eclampsia in prior , currently ([facility]); H/O delivery, currently ([facility]); Request for sterilization 01/27/2025 Abstract [facility] BCP OB [address] [facility] [place] [address] Maria Pendleton, DO 01/27/2025 Bamboo flowsheet [facility] BCP OB [address] [place] [address] Maria Pendleton, DO 01/20/2025 Abstract [facility] BCP OB [address] [place] [address] Maria Pendleton, DO 01/15/2025 Telephone [facility] BCP OB [address] [place] [address] Christy Cui MA 01/14/2025 11:20 AM EDT Routine [facility] BCP OB [address] [facility] [place] [address] Reema Leslie, JEFFERSON Third trimester ([facility]); 28 weeks gestation of ([facility]) 01/14/2025 External Result Encounter [facility]OM[facility] External Department Unsolicited Maria Pendleton, DO 01/14/2025 Abstract [facility] BCP OB [address] [facility] [place] [address] Maria Pendleton, DO 01/14/2025 Bamboo flowsheet [facility] BCP OB [address] [facility] [place] [address] Reema Leslie, JEFFERSON 01/09/2025 Results Follow-Up [facility] BCP OB [address] [facility] [place] [address] Suze Lopez LPN 01/08/2025 Results Follow-Up [facility] BCP OB [address] [facility] [place] [address] Suze Lopez LPN 01/08/2025 Telephone [facility] BCP OB [address] [facility] [place] [address] Suze Lopez LPN 01/08/2025 Clinisync Result Encounter N[facility] External Department Unsolicited Maria Pendleton, DO 01/06/2025 Results Follow-Up NOM[facility] [address] [place] [address] Suze Lopez, XANDER 01/06/2025 Clinisync Result Encounter NOMS External Department Unsolicited Priscilla Warren PA 12/30/2024 11:10 AM EDT Routine NOMS [address] [place] [address] Maria Pendleton, Second trimester ([facility]); 26 weeks gestation of ([facility]); Seen in emergency room; Exposure to STD; HSV (herpes simplex virus) infection 12/30/2024 External Result Encounter [facility]S External Department Unsolicited Maria Pendleton, DO 12/30/2024 Bamboo flowsheet NOM[facility] [address] [place] [address] Maria Pendleton, 12/29/2024 Abstract [facility]OM[facility] [address] [place] [address] Maria Pendleton, 12/23/[address] [address] [place] [address] Christy Cui MA from Last 3 Months Family History Medical [...] Pressure 122/74 03/17/2025 12:00 PM EDT Pulse 83 03/11/2023 9:58 AM EDT Temperature 36.6 C (97.8 F) 03/11/2023 9:58 AM EDT Respiratory Rate - - Oxygen Saturation 99% 03/11/2023 9:58 AM EDT Inhaled Oxygen Concentration - - Weight 95.7 kg (211 lb) 03/17/2025 12:00 PM EDT Height 160 cm (5' 3 ) 02/19/2024 10:46 AM EDT Body Mass Index 37.38 02/19/2024 10:46 AM EDT Plan of Treatment Upcoming Encounters Date Type Department Care Team (Late st Contact Info) Description 11/19/2025 10:50 AM EST Office Visit [facility] DERM [address] [place] [phone] Kayleigh Chung APRN-DRUG REGULATORY AFFAIRS SPECIALIST [address] [place] [address] Procedures Procedure Name Priority Date/Time Associated Diagnosis Comments US OB BPP W NON-STRESS 03/19/2025 11:40 AM EDT POCT URINALYSIS DIPSTICK Routine 03/17/2025 12:01 PM EDT Third trimester ([facility]) US OB BPP W NON-STRESS 03/12/2025 11:54 AM EDT US OB BPP W NON-STRESS 03/05/2025 12:03 PM EDT US OB BPP W NON-STRESS 02/26/2025 1:13 PM EDT POCT URINALYSIS DIPSTICK Routine 02/24/2025 12:05 PM EDT 34 weeks gestation of ([facility]) Third trimester ([facility]) US OB BPP W NON-STRESS 02/19/2025 11:29 AM EDT US OB BPP W NON-STRESS 02/12/2025 9:06 AM EDT POCT URINALYSIS DIPSTICK Routine 02/11/2025 11:00 AM EDT Third trimester ([facility]) 32 weeks gestation of ([facility]) FERRITIN Routine 01/28/2025 8:32 AM EDT TRANSFERRIN Routine 01/28/2025 8:32 AM EDT RECURRENT VAGINITIS (HTRX) Routine 01/14/2025 11:52 AM EDT POCT URINALYSIS DIPSTICK Routine 01/14/2025 11:31 AM EDT Third trimester ([facility]) TBH CREATININE Routine 01/08/2025 8:35 AM EDT ALL BUN Routine 01/08/2025 8:35 AM EDT ALL CBC WITH AUTO DIFF Routine 01/08/2025 8:35 AM EDT TBH URINE MICROSCOPIC ONLY Routine 01/08/2025 8:05 AM EDT TBH UA (CLEAN/CATCH) RECYCLABLE MATERIALS DISTRIBUTOR/MICRO IF IND. Routine 01/08/2025 8:05 AM EDT GLUCOSE 1 HOUR Routine 01/06/2025 10:42 AM EDT ALL CBC WITH AUTO DIFF Routine 01/06/2025 10:42 AM EDT RECURRENT VAGINITIS (HTRX) Routine 12/30/2024 3:26 PM EDT from Last 3 Months Results * US OB BPP W NON-STRESS (03/19/2025 11:40 AM EDT) Only the most recent of6 resultswithin the time period is included. Anatomical Region Laterality Modality Other 03/19/2025 11:4 0 AM EDT Narrative 03/19/2025 11:42 [place] [address] Ultrasound Report Signed Patient: LISHA VALENTIN MR#: [id number] : 1990 Acct:[id number] Age/Sex: 34 / F ADM Date: 03/19/25 Loc: [facility] 250-[address]: Maria Pendleton D.O. Ordering Physician: Maria Pendleton D.O. Date of Service: 03/19/25 Procedure(s): US OB BPP w non-stress Accession Number(s): [id number] cc: Maria Pendleton D.O.; Physician,Non-Staff M.D. [place] [id number] Patient Name: LISHA VALENTIN MRN: [id number] date: 1990 Sex: F Assigned Patient Location: [facility] Current Patient Location: [facility] Accession/Order Number: [id number] Exam Date: 03/19/2025 11:38 Report Date: 03/19/2025 11:40 At the request of: MARIA PENDLETON DO Procedure: US OB BPP w non-stress BIOPHYSICAL PROFILE: CLINICAL INFORMATION: HISTORY OF DELIVERY O 09.299 COMPARISON: 03/12/2025 There is a single live intrauterine gestation in cephalic presentation. The reported gestational age is 37 weeks 4 days. The heart rate measures 165 beats per minute. FINDINGS: TONE: 1 or [...] greater than 2 cm [Y] 2/2 VIDA: 18.7 cm. This is in upper normal range. Total score: 8/8 US/US OB BPP w non-stress IMPRESSION: NORMAL BIOPHYSICAL PROFILE Impression dictated by: Michell Miller M.D. 03/19/2025 11:40 AM Dictation Location: [place] [address] Electronically authenticated by: [id number] Y Date: 03/19/2025 11:40 Dictated By: Michell Miller M.D. Signed By: 03/19/25 1142 DD/ 1140 TD/TT: Housecleaner: Procedure Note Radiology, Radiologist, MD - 03/19/2025 [place] [address] Ultrasound Report Signed Patient: LISHA VALENTIN GMR#: [id number] : 1990Acct:[id number] Age/Sex: 34 / FADM Date: 03/19/25 Loc: [facility] 250-[address]: Maria Pendleton D.O. Ordering Physician: Maria Pendleton D.O. Date of Service: 03/19/25 Procedure(s): US OB BPP w non-stress Accession Number(s): [id number] cc: Maria Pendleton D.O.; Physician,Non-Staff Kacey [address] [place] [id number] Patient Name: LISHA VALENTIN MRN: [id number] date: 1990 Sex: F Assigned Patient Location: [facility] Current Patient Location: [facility] Accession/Order Number: [id number] Exam Date: 03/19/2025 11:38 Report Date: 03/19/2025 11:40 At the request of: MARIA PENDLETON DO Procedure: US OB BPP w non-stress BIOPHYSICAL PROFILE: CLINICAL INFORMATION: HISTORY OF DELIVERY O 09.299 COMPARISON: 03/12/2025 There is a single live intrauterine gestation in cephalic presentation.The reported gestational age is 37 weeks 4 days. The heart ratemeasures 165 beats per minute. FINDINGS: TONE: 1 or [...] greater than 2 cm [Y] 2/2 VIDA: 18.7 cm. This is in upper normal range. Total score: 8/8 US/US OB BPP w non-stress IMPRESSION: NORMAL BIOPHYSICAL PROFILE Impression dictated by: Michell Miller M.D. 03/19/2025 11:40 AM Dictation Location: [place] [address] Electronically authenticated by: [id number] Y Date: 511:40 Dictated By: Michell Miller M.D. Signed By:03/19/25 1142 DD/ 1140 TD/TT: Housecleaner: Maria Pendleton DO [facility] Final Result * (ABNORMAL) POCT urinalysis dipstick manually resulted (03/17/2025 12:01 PM EDT) Only the most recent of4 resultswithin the time period is included. Color, [...] Positive Urine 03/17/2025 12:0 1 PM EDT us Priscilla SRIVASTAVA POINT OF CARE TEST ENTER/EDIT OR DERABLES Final Result * Transferrin (01/28/2025 8:32 AM EDT) TRANSFERRIN 226 203 - 362 mg/dL 01/28/2025 11:02 AM EDT [facility] Other Topography unknown / Unknown 01/28/2025 8:32 AM EDT 01/28/2025 8:32 AM EDT Priscilla SRIVASTAVA LAB BLOOD ORDERABLES Final Resul t Performing Organization Address City/[facility] Co de Phone Number [address] [address], [address] [address] * Ferritin (01/28/2025 8:32 AM EDT) FERRITIN 43.0 11.0 - 306.8 ng/mL 01/28/2025 11:09 AM EDT [facility] Other Topography unknown / Unknown 01/28/2025 8:32 AM EDT 01/28/2025 8:32 AM EDT us Priscilla SRIVASTAVA LAB BLOOD ORDERABLES Final Resul t Performing Organization Address City/[facility] Co de Phone Number [address] [address], [facility] [address] [place] [address] * (ABNORMAL) RECURRENT VAGINITIS (HTRX) (01/14/2025 11:52 AM EDT) Only the most recent of2 resultswithin the time period is included. [facility] ATOPOBIUM VAGINAE 25.517(A) 19.961 - 24.689 ppm 01/15/2025 7:26 AM EDT [facility] [place] ATOPOBIUM VAGINAE Detected(A) 19.961 - 24.689 ppm 01/15/2025 7:26 AM EDT [facility] BVAB 2,3 (BACTERIAL VAGINOSIS ASSOCIATED BACTERIA 2, 3); MOBILUNCUS SPP 23.796(A) 19.961 - 24.689 ppm 01/15/2025 7:26 AM EDT [facility] BVAB 2,3 (BACTERIAL VAGINOSIS ASSOCIATED BACTERIA 2, 3); MOBILUNCUS SPP Detected(A) 19.961 - 24.689 ppm 01/15/2025 7:26 AM EDT [facility] MARION ALBICANS, PARAPSILOSIS, TROPICALIS 0.000 19.961 - 30.770 ppm 01/15/2025 7:26 AM EDT [facility] MARION ALBICANS, PARAPSILOSIS, TROPICALIS Not Detected 19.961 - 30.770 ppm 01/15/2025 7:26 AM EDT [facility] MARION GLABRATA 0.000 23.000 - 32.138 ppm 01/15/2025 7:26 AM EDT [facility] MARION GLABRATA Not Detected 23.000 - 32.138 ppm 01/15/2025 7:26 AM EDT [facility] MARION KRUSEI 0.000 23.000 - 32.271 ppm 01/15/2025 7:26 AM EDT [facility] MARION KRUSEI Not Detected 23.000 - 32.271 ppm 01/15/2025 7:26 AM EDT [facility] CHLAMYDIA TRACHOMATIS 0.000 23.000 - 31.467 ppm 01/15/2025 7:26 AM EDT [facility] CHLAMYDIA TRACHOMATIS Not Detected 23.000 - 31.467 ppm 01/15/2025 7:26 AM EDT [facility] GARDNERELLA VAGINALIS 0.000 19.961 - 24.689 ppm 01/15/2025 7:26 AM EDT [facility] GARDNERELLA VAGINALIS Not Detected 19.961 - 24.689 ppm 01/15/2025 7:26 AM EDT [facility] MEGASPHAERA (TYPES 1, 2) 0.000 19.961 - 24.689 ppm 01/15/2025 7:26 AM EDT [facility] MEGASPHAERA (TYPES 1, 2) Not Detected 19.961 - 24.689 ppm 01/15/2025 7:26 AM EDT [facility] NEISSERIA GONORRHOEAE 0.000 23.000 - 32.117 ppm 01/15/2025 7:26 AM EDT [facility] NEISSERIA GONORRHOEAE Not Detected 23.000 - 32.117 ppm 01/15/2025 7:26 AM EDT [facility] TRICHOMONAS VAGINALIS 0.000 23.000 - 32.119 ppm 01/15/2025 7:26 AM EDT [facility] TRICHOMONAS VAGINALIS Not Detected 23.000 - 32.119 ppm 01/15/2025 7:26 AM EDT [facility] MYCOPLASMA GENITALIUM 0.000 19.961 - 24.689 ppm 01/15/2025 7:26 AM EDT [facility] MYCOPLASMA GENITALIUM Not Detected 19.961 - 24.689 ppm 01/15/2025 7:26 AM EDT [facility] Tissue 01/14/2025 11:5 2 AM EDT 01/15/2025 2:13 AM EDT us Maria Pendleton DO LAB BLOOD ORDERABLES Final Resul t [facility] [address] [place] [address] * TB CREATININE (01/08/2025 8:35 AM EDT) CREATININE 0.63 0.55 - 1.02 mg/dL TBH TBH EGFR-AF AUSTRIAN >60 >=60 mL/min/1.7 3m 2 TBH TBH EGFR-NON AF AUSTRIAN >60 >=60 mL/min/1.7 3m 2 TBH 01/08/2025 8:35 AM EDT 01/08/2025 8:39 AM EDT Narrative [facility] - 01/08/2025 8:49 AM EDT us Maria Helder DO [facility] Final Result [facility] * (ABNORMAL) ALL CBC WITH AUTO [...] EDT Maria Helder DO [facility] Final Result [facility] * ALL BUN (01/08/2025 8:35 AM EDT) Pathologist [facility] BLOOD UREA NITROGEN 8.0 7.0 - 18.0 mg/dL TB 01/08/2025 8:35 AM EDT 01/08/2025 8:39 AM EDT Narrative [facility] - 01/08/2025 8:49 AM EDT Maria Helder DO [facility] Final Result [facility] * (ABNORMAL) TBH URINE MICROSCOPIC ONLY (01/08/2025 8:05 AM EDT) TB WBC 5-10(A) NONE SEEN #/HPF TBH TBH [...] [facility] * (ABNORMAL) TBH UA (CLEAN/CATCH) RECYCLABLE MATERIALS DISTRIBUTOR/MICRO IF IND. (01/08/2025 8:05 AM EDT) COLOR [...] [employer] MEDICAID [facility] Care Teams Certified [employer]ell Administrator Relationship Specialty Start Date End Date Sarah oLpez DO [address] [place] [address] Referring Physician Emergency Medicine 02/18/23
--- OUTSIDE RECORDS SUMMARY | 2025-03-23 08:10 | XMS_ITS | Encounter Summary ---
Author Organization [facility] Address [address] [place] [address] Care Team Providers Care Cad Specialist Name Role Phone Sarah Lopez DO Unavailable [phone] Encounter Details Date Type Department Care Team (Late Contact Info) Description 12/17/2024 Abstract [facility] [address] [place] [phone] Malcolm Pendleton [address] Mary Garcia, [place] [address] Social History Tobacco Use Types Packs/Day Years [...] Office Visit [facility] [address] [place] [address] Kayleigh Chung, MANAGER RESEARCH AND DEVELOPMENT-WOOD GRINDER [address] [place] [address] documented as of this encounter Visit Diagnoses Not on filedocumented in this encounter Care Teams Cad Specialist Relationship Specialty Start Date End Date Sarah Lopez DO [address] [place] [address] Referring Physician Emergency Medicine 02/18/23 documented as of this encounter
--- OUTSIDE RECORDS SUMMARY | 2025-03-23 08:10 | XMS_ITS | Encounter Summary ---
Author Organization [facility] Address [address] [place] [address] Care Team Providers Care Induction Coordination Engineer Name Role Phone Sarah Lopez DO Unavailable [phone] Encounter Details Date Type Department Care Team (Late Contact Info) Description 01/20/2025 Abstract [facility] OB [address] [place] [phone] Malcolm Pendleton [address] Mary Garcia, [place] [address] Social History Tobacco Use Types Packs/Day Years [...] Department Care Team (Late Contact Info) Description 11/19/2025 10:50 AM EST Office Visit [facility] [address] [place] [address] Kayleigh Chung, MAT MACHINE OPERATOR-PLANT SECURITY GUARD [address] [place] [address] documented as of this encounter Visit Diagnoses Not on filedocumented in this encounter Care Teams Induction Coordination Engineer Relationship Specialty Start Date End Date Sarah Lopez DO [address] [place] [address] Referring Physician Emergency Medicine 02/18/23 documented as of this encounter
--- OUTSIDE RECORDS SUMMARY | 2025-03-23 08:10 | XMS_ITS | Encounter Summary ---
Author Organization [facility] Address [address] [place] [address] Care Team Providers Care Child Custody Evaluator Name Role Phone Sarah Lopez DO Unavailable [phone] Encounter Details Date Type Department Care Team (Late Contact Info) Description 01/14/2025 Abstract [facility] OB [address] [place] [phone] Malcolm Pendleton [address] Mary Garcia, [place] [address] Social History Tobacco Use Types Packs/Day Years [...] Office Visit [facility] [address] [place] [address] Kayleigh Chung, PIPE CONNECTOR-COAL PICKER [address] [place] [address] documented as of this encounter Visit Diagnoses Not on filedocumented in this encounter Care Teams Child Custody Evaluator Relationship Specialty Start Date End Date Sarah Lopez DO [address] [place] [address] Referring Physician Emergency Medicine 02/18/23 documented as of this encounter
--- OUTSIDE RECORDS SUMMARY | 2025-03-23 08:10 | XMS_ITS | Encounter Summary ---
Author Organization [facility] Address [id number] [address] [place] [address] Care Team Providers Care Legal Nurse Consultant Name Role Phone No Pcp, No Pcp Primary Care Provider Unavailabl e Encounter Details Date Type Department Care Team (Late st Contact Info) Description 10/10/2024 Abstract Maternal- Medicine at [facility] [address] [place] [phone] Torey Barnett MD [address], [address] [place] [address] Social History Tobacco Use Types Packs/Day Years [...] Result Performing Organization Address City/[facility] Co de Phone Number MANUALLY TRANSCRIBED RESULTS * Syphilis Total(Unknown Syphilis Status) (09/11/2024) Syphilis Total non- reactive MANUALLY TRANSCRIBED RESULTS us Not In System Ref Prov LAB BLOOD ORDERABLES Larissa l Result Performing Organization Address City/[facility] Co de Phone Number MANUALLY TRANSCRIBED RESULTS documented in this encounter Visit Diagnoses Not on filedocumented in this encounter Care Teams Legal Nurse Consultant Relationship Specialty Start Date End Date No Pcp, [place] [address] PCP - General Family Medicine 02/21/24 documented as of this encounter
--- OUTSIDE RECORDS SUMMARY | 2025-03-23 08:10 | XMS_ITS | Encounter Summary ---
Author Organization [facility] Address [facility][id number] [address] [place] [address] Care Team Providers Care Hot Mill Shearer Name Role Phone No Pcp, No Pcp Primary Care Provider Unavailabl e Encounter Details Date Type Department Care Team (Late st Contact Info) Description 12/01/2024 Orders Only Maternal- Medicine at [facility] [address] [place] [phone] Natalie Díaz, RN Choroid plexus cyst of [...] 1 documented in this encounter Care Teams Hot Mill Shearer Relationship Specialty Start Date End Date No Pcp, [place] [address] PCP - General Family Medicine 02/21/24 documented as of this encounter
--- OUTSIDE RECORDS SUMMARY | 2025-03-23 08:10 | XMS_ITS | Encounter Summary ---
Author Organization [facility] Address [address] [place] [address] Care Team Providers Care Proteomics Scientist Name Role Phone Sarah Lopez DO Unavailable [phone] Encounter Details Date Type Department Care Team (Late Contact Info) Description 12/29/2024 Abstract [facility] OB [address] [place] [phone] Malcolm Pendleton [address] Mary Garcia, [place] [address] Social History Tobacco Use Types Packs/Day Years [...] Office Visit [facility] [address] [place] [phone] Kayleigh Chung, SCAFFOLD SETTER-GANG DRILL OPERATOR [address] [place] [address] documented as of this encounter Visit Diagnoses Not on filedocumented in this encounter Care Teams Proteomics Scientist Relationship Specialty Start Date End Date Sarah Lopez DO [address] [place] [address] Referring Physician Emergency Medicine 02/18/23 documented as of this encounter
--- OUTSIDE RECORDS SUMMARY | 2025-03-23 08:10 | XMS_ITS | Encounter Summary ---
Author Organization [facility] Address [address] [place] [address] Care Team Providers Care Stopper Maker Helper Name Role Phone Sarah Lopez DO Unavailable [phone] Encounter Details Date Type Department Care Team (Late Contact Info) Description 09/15/2024 Abstract [facility] OB [address] [place] [phone] Malcolm Pendleton [address] Mary Garcia, [place] [address] Social History Tobacco Use Types Packs/Day Years [...] [facility] [address] [place] [phone] Kayleigh Chung, HOT MILL WORKER-PLANNER INTERN [address] [place] [address] documented as of this encounter Visit Diagnoses Not on filedocumented in this encounter Care Teams Stopper Maker Helper Relationship Specialty Start Date End Date Sarah Lopez DO [address] [place] [address] Referring Physician Emergency Medicine 02/18/23 documented as of this encounter
--- OUTSIDE RECORDS SUMMARY | 2025-03-23 08:10 | XMS_ITS | Patient Health Record ---
[facility] Address [address] [address] Care Team Providers Care Reproductive Healthcare Assistant Name Role Phone Yudelka Lopez Primary Care Provider [phone] Leroy Salazar Unavailable [phone] Allergies Allergen (clinical drug ingredient) Drug/Non Drug Allergy documented on EMR Reaction Allergy Type Onset Date Status labetalol Labetalol HCl shortness of breath Drug Allergy Active Results Component Value Reference Range Notes BioFire Detected (Not yet re viewed by provider) Interpretation: Performing Lab:, [facility], [address] [facility] Notes/Report: BioFire Detected Detected Not Detecte This is a duplicate RP2.1 COVID (PCR) result to be used for statistical tracking purpose only. Dipstick and Microscopic (No t yet reviewed by provider) Interpretation: Performing Lab:, [facility], [address] [facility] Notes/Report: Name Collection Type:: Clean-Voided Midstream Color,Urine Light-Yellow Yellow Appearance,Urine Clear Clear Specificy [place],Urine 1.011 1.001-1.030 pH,Urine 6.5 5.0-9.0 Leukocyte Esterase,Urine [...] reviewed by provider) Interpretation: Performing Lab:, [facility], [address] Notes/Report: Adenovirus [...] d by provider) Interpretation: Performing Lab:, [facility], [address] [place] [...] reviewed by provider) Interpretation: Performing Lab:, [facility], [address] [place] [...] reviewed by provider) Interpretation: Performing Lab:, [facility], [address] [place] [address] Notes/Report: Glucose 73 70-100 mg/dL Random Glucose [...] date:07/14/2024 04:15:57 PM Interpretation: Performing Lab: Notes/Report: [facility] Main [place] [address] [place] [address] Scan Report Signed Patient: Lisha Fonseca MR#: [id number] : 1990 Acct:[id number] Age/Sex: 34 / F ADM Date: 07/14/24 Loc: ER Room: Type: [facility] ER Attending Dr: Copies to: DO [...] seen. Impression dictated by: Leroy Mancera Jr., DIman07/14/2024 2:43 PM Dictation Location: [place] [address] Transcribed By: [facility] 07/14/24 1443 Dictated By: Leroy Mancera Jr, DO 07/14/24 1438 Signed By: <Electronically signed by Leroy Mancera Jr, DO in [place]> 07/14/24 1443 COVID-19 / Flu A/B / RSV PCR Reviewed date:07/14/2024 05:15:14 PM Interpretation: Performing Lab:, [facility], [address] [place] Notes/Report: COVID-19 Cepheid Result Negative for KELLY [...] for use by Cepheid Disclaimer authorized laborator s; this test has been Cepheid Disclaimer authorized [...] date:07/14/2024 05:15:14 PM Interpretation: Performing Lab:, [facility], [address] [place] Notes/Report: Name Collection Type:: Clean-Voided Midstream Color,Urine Yellow Yellow Appearance,Urine Clear Clear Specificy [place],Urine 1.030 1.001-1.030 pH,Urine 6.0 5.0-9.0 Leukocyte Esterase,Urine [...] date:07/14/2024 05:15:14 PM Interpretation: Performing Lab:, [facility], [address] [place] Notes/Report: This is a duplicate Cepheid Xpert Xpress CoV-2/Flu/RSV Plus RNA by RT-PCR result to be used for statistical tracking purpose only. Cepheid COVID PCR Negative Negative Negative HCG,Urine Reviewed date:07/14/2024 05:15:14 PM Interpretation: Performing Lab: Notes/Report: Name Collection Type:: Clean-Voided Midstream HCG Qualitative,Urine Negative Complete Blood Count Auto Di ff Reviewed date:07/14/2024 05:15:14 PM Interpretation: Performing Lab:, [facility], [address] [place] Notes/Report: For adults in ED, MDW > [...] date:07/14/2024 05:15:14 PM Interpretation: Performing Lab:, [facility], [address] Notes/Report: Total [...] date:08/07/2024 07:53:16 AM Interpretation: Performing Lab:, [facility], [address] Notes/Report: Ethanol <10 Percent Ethanol TNP Complete Blood Count Auto Di ff Reviewed date:08/07/2024 07:53:16 AM Interpretation: Performing Lab:, [facility], [address] Notes/Report: White Blood Count 7.9 [...] date:08/07/2024 07:53:16 AM Interpretation: Performing Lab:, [facility], [address] [place] Notes/Report: Approximate Approximate hCG Gestational Age Range (mIU/ml) (weeks) 0.2-1 5-50 1-2 50-500 2-3 100-5,000 3-4 500-10,000 4-5 1,000-50,000 5-6 10,000-100,000 6-8 15,000-200,000 8-12 10,000-100,000 HCG,Quantitative 91515.00 Comprehensive Metabolic Amira rose Reviewed date:08/07/2024 07:53:16 AM Interpretation: Performing Lab:, [facility], [address] [place] Notes/Report: Glucose [...] down, depressed, or hopeless More than h longterm the days Trouble falling or staying a [...] 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 Stress is when someone feels tense, nervous, anxious, or cant sleep at night because their mind is troubled Not at all In the past year have you sp ent more than 2 nights in a row in a senior care, usp, skilled nursing center, or juvenile correctional facility? No Are [...] Status W/U Status Risk Notes Problem Hyperthyroidism (74830436) Hyperthyroidism (E05.90) Active confirmed Problem Thyroid nodule (845911549) Thyroid nodule (E04.1) Active confirmed Problem Iron deficiency anemia (23820302) Iron deficiency anemia, unspecified iron deficiency anemia type (D50.9) Active confirmed Problem Migraine with aura (5134014) Migraine with aura and without status migrainosus, not intractable (G43.109) Active confirmed Problem Endometriosis (502100294) Endometriosis (N80.9) Active confirmed Problem Anxiety disorder (728241503) Anxiety disorder, unspecified (F41.9) Active confirmed Encounters Encounter Location Date Provider Diagnosis [facility] [address] [place] [address] 07/18/2024 [facility] [address] [place] [address] 08/13/2024 [facility] [address] [place] [address] 12/19/2024 Leroy Salazar Encounter for dental examination [...] Insured Coverage Start Date Coverage End Date [facility] [address] [place] [address] [id number] LISHA FONSECA Other 1 [employer] [place] Medicaid [address] [place] [address] [id number] LISHA FONSECA Self - patient is the insured 3 3 Wrap [facility] [address] [place] [address] [phone] [id number] LISHA FONSECA Self - patient is the insured 3 3 Wrap [facility] [place] [address] [place] [address] [id number] LISHA FONSECA Self - patient is the insured 3 zDENTAL DQ [facility] [place]P [place]-termed 22 [address] [place] [address] [id number] LISHA FONSECA Self - patient is the insured 2 zDental MEDICAID [facility] after [facility] CHP-terme d 22 [address] [place] [address] [phone] [id number] LISHA FONSECA Self - patient is the insured 2 DENTAL [employer] [address] [address] [place] [address] [id number] LISHA FONSECA 5 Dental Wrap [facility] [employer] [address] [place] [address] [id number] LISHA FONSECA Self - patient is the insured 5 Dental [employer] DQ [address] [address] [place] [address] [id number] LISHA FONSECA Self - patient is the insured 5 Medical (General) History Medical History History ICD Code hypertension anemia Covid 19 Surgical History Surgery Date(Month/Year) section-x2 Endometrial Tumor Resection 04/03/22 Hospitalization History Reason Date(Month/Year) see surgical Child x2
--- OUTSIDE RECORDS SUMMARY | 2025-03-23 08:10 | XMS_ITS | Encounter Summary ---
Author Organization [facility] Address [address] [place] [address] Care Team Providers Care Project Lead Name Role Phone Sarah Lopez DO Unavailable [phone] Encounter Details Date Type Department Care Team (Late Contact Info) Description 11/21/2024 Abstract [facility] OB [address] [place] [phone] Malcolm Pendleton [address] Mary Garcia, [place] [address] Social History Tobacco Use Types Packs/Day Years [...] Visit [facility] [address] [place] [phone] Kayleigh Chung, DIRECTOR OF PHYSICAL SECURITY-INSTRUCTOR WATCH ASSEMBLY [address] [place] [address] documented as of this encounter Visit Diagnoses Not on filedocumented in this encounter Care Teams Project Lead Relationship Specialty Start Date End Date Sarah Lopez DO [address] [place] [address] Referring Physician Emergency Medicine 02/18/23 documented as of this encounter
--- OUTSIDE RECORDS SUMMARY | 2025-03-23 08:10 | XMS_ITS | Encounter Summary ---
Author Organization [facility] Address [address] [place] [address] Care Team Providers Care Middle School Humanities Teacher Name Role Phone Sarah Lopez DO Unavailable [phone] Encounter Details Date Type Department Care Team (Late Contact Info) Description 11/10/2024 Abstract [facility] [address] [place] [address] Ingrid Esquivel NP Social History Tobacco Use [...] DERM [address] [place] [phone] Kayleigh Chung, LINE OUT WORKER-MUTUEL CLERK [address] [place] [address] documented as of this encounter Visit Diagnoses Not on filedocumented in this encounter Care Teams Middle School Humanities Teacher Relationship Specialty Start Date End Date Sarah Lopez DO [address] [place] [address] Referring Physician Emergency Medicine 02/18/23 documented as of this encounter
--- OUTSIDE RECORDS SUMMARY | 2025-03-23 08:10 | XMS_ITS | Encounter Summary ---
Author Organization [facility] Address [address] [place] [address] Care Team Providers Care Histology Aide Name Role Phone Sarah Lopez DO Unavailable [phone] Encounter Details Date Type Department Care Team (Late st Contact Info) Description 01/30/2025 Abstract [facility] OB [address] [place] [address] Mary Cruz MA Social History Tobacco Use [...] DERM [address] [place] [address] Kayleigh Chung, MEDICAL SONOGRAPHER-POLYMERIZATION KETTLE OPERATOR [address] [place] [address] documented as of this encounter Visit Diagnoses Not on filedocumented in this encounter Care Teams Histology Aide Relationship Specialty Start Date End Date Sarah Lopez DO [address] [place] [address] Referring Physician Emergency Medicine 02/18/23 documented as of this encounter
--- OUTSIDE RECORDS SUMMARY | 2025-03-23 08:10 | XMS_ITS | Encounter Summary ---
Author Organization [facility] Address [address] [place] [address] Care Team Providers Care Ladle Cleaner Name Role Phone Sarah Lopez DO Unavailable [phone] Encounter Details Date Type Department Care Team (Late Contact Info) Description 12/16/2024 Abstract [facility] OB [address] [place] [phone] Malcolm Pendleton [address] Mary Garcia, [place] [address] Social History Tobacco Use Types Packs/Day Years [...] Office Visit [facility] [address] [place] [phone] Kayleigh Chung, HELIARC WELDER-STOPPER SETTER [address] [place] [address] documented as of this encounter Visit Diagnoses Not on filedocumented in this encounter Care Teams Ladle Cleaner Relationship Specialty Start Date End Date Sarah Lopez DO [address] [place] [address] Referring Physician Emergency Medicine 02/18/23 documented as of this encounter
--- OUTSIDE RECORDS SUMMARY | 2025-03-23 08:10 | XMS_ITS | Encounter Summary ---
Author Organization [facility] Address [address] [place] [address] Care Team Providers Care Medical Office Asst Name Role Phone Sarah Lopez DO Unavailable [phone] Encounter Details Date Type Department Care Team (Late Contact Info) Description 08/26/2024 Abstract [facility] OB [address] [place] [phone] Malcolm Pendleton [address] Mary Garcia, [place] [address] Social History Tobacco Use Types Packs/Day Years [...] Office Visit [facility] [address] [place] [phone] Kayleigh Chung, REACTOR OPERATOR-LABORER FILTER PLANT [address] [place] [address] documented as of this encounter Visit Diagnoses Not on filedocumented in this encounter Care Teams Medical Office Asst Relationship Specialty Start Date End Date Sarah Lopez DO [address] [place] [address] Referring Physician Emergency Medicine 02/18/23 documented as of this encounter
--- OUTSIDE RECORDS SUMMARY | 2025-03-23 08:10 | XMS_ITS | Encounter Summary ---
Author Organization [facility] Address [address] [place] [address] Care Team Providers Care Thermal Spray Operator Name Role Phone Sarah Lopez DO Unavailable [phone] Encounter Details Date Type Department Care Team (Late st Contact Info) Description 01/08/2025 Results Follow-Up [facility] [address] [place] [address] Suze Lopez LPN [address] [place] [id number] Social History Tobacco Use Types Packs/Day Years [...] DERM [address] [place] [address] Kayleigh Chung APRN-SCHOOL BUS AIDE [address] [place], [place] [phone] documented as of this encounter Visit Diagnoses Not on filedocumented in this encounter Care Teams Thermal Spray Operator Relationship Specialty Start Date End Date Sarah Lopez DO [address] [place] [address] Referring Physician Emergency Medicine 02/18/23 documented as of this encounter
--- OUTSIDE RECORDS SUMMARY | 2025-03-23 08:10 | XMS_ITS | Encounter Summary ---
Author Organization [facility] Address [address] [facility] [place] [address] Care Team Providers Care Powerhouse Mechanic Name Role Phone Sarah Lopez DO Unavailable [phone] Encounter Details Date Type Department Care Team (Late st Contact Info) Description 03/19/2025 Clinisync Result Encounter [facility] External Department Unsolicited Maria Pendleton DO [address] [facility] [place] [address] Social History Tobacco Use Types Packs/Day Years [...] Office Visit [facility] [address] [place] [address] Kayleigh Chung, CIVIL PREPAREDNESS OFFICER-RN RECOVERY [address] [place], [place] [id number] documented as of this encounter Procedures Procedure Name Priority Date/Time Associated Diagnosis Comments US OB BPP W NON-STRESS 03/19/2025 11:40 AM EDT documented in this encounter Results * US OB BPP W NON-STRESS (03/19/2025 11:40 AM EDT) Anatomical Region Laterality Modality Other 03/19/2025 11:4 0 AM EDT Narrative 03/19/2025 11:42 [place] [address] Ultrasound Report Signed Patient: LEANDRA FONSECA MR#: [id number] : 1990 Acct:[id number] Age/Sex: 34 / F ADM Date: 03/19/25 Loc: [facility] 250-[address]: Maria Pendleton D.O. Ordering Physician: Maria Pendleton D.O. Date of Service: 03/19/25 Procedure(s): US OB BPP w non-stress Accession Number(s): [id number] cc: Maria Pendleton D.O.; Physician,Non-Staff M.Izabela The [place] [id number] Patient Name: LEANDRA FONSECA MRN: [id number] date: 1990 Sex: F Assigned Patient Location: [facility] Current Patient Location: [facility] Accession/Order Number: [id number] Exam Date: 03/19/2025 11:38 Report Date: 03/19/2025 [...] Miller M.D. 03/19/2025 11:40 AM Dictation Location: [place] [address] Electronically authenticated by: [id number] Y Date: 03/19/2025 11:40 Dictated By: Michell Miller M.D. Signed By: 03/19/25 1142 DD/ 1140 TD/TT: Color Tester: Procedure Note Radiology, Radiologist, MD - 03/19/2025 [place] [address] Ultrasound Report Signed Patient: LEANDRA FONSECA GMR#: [id number] : 1990Acct:[id number] Age/Sex: 34 / FADM Date: 03/19/25 Loc: [place] [address]: Maria Pendleton D.O. Ordering Physician: Maria Pendleton D.O. Date of Service: 03/19/25 Procedure(s): US OB BPP w non-stress Accession Number(s): [id number] cc: Maria Pendleton D.O.; Physician,Non-Staff Kacey The [address] [address] Patient Name: LEANDRA FONSECA MRN: [id number] date: 1990 Sex: F Assigned Patient Location: [facility] Current Patient Location: [facility] Accession/Order Number: [id number] Exam Date: 03/19/2025 11:38 Report Date: 03/19/2025 11:40 At the request of: MARIA PEDNLETON DO Procedure: US OB BPP w non-stress [...] Miller M.D. 03/19/2025 11:40 AM Dictation Location: [place] [address] Electronically authenticated by: [id number] Y Date: 1:40 Dictated By: Michell Miller M.D. Signed By:03/19/25 1142 DD/ 1140 TD/TT: Color Tester: Maria Pendleton DO [facility] Final Result documented in this encounter Visit Diagnoses Not on filedocumented in this encounter Care Teams Powerhouse Mechanic Relationship Specialty Start Date End Date Sarah Lopez DO [address] [place] [address] Referring Physician Emergency Medicine 02/18/23 documented as of this encounter
--- OUTSIDE RECORDS SUMMARY | 2025-03-23 08:10 | XMS_ITS | Encounter Summary ---
Author Organization [facility] Address [address] [place] [address] Care Team Providers Care Radiology Services Manager Name Role Phone Sarah Lopez DO Unavailable [phone] Encounter Details Date Type Department Care Team (Late Contact Info) Description 03/15/2025 Abstract [facility] OB [address] [place] [phone] Malcolm Pendleton [address] Mary Garcia, [place] [address] Social History Tobacco Use Types Packs/Day Years [...] Office Visit [facility] [address] [place] [phone] Kayleigh Chung, GRAIN TRADER-HEALTH EDUCATOR [address] [place] [address] documented as of this encounter Visit Diagnoses Not on filedocumented in this encounter Care Teams Radiology Services Manager Relationship Specialty Start Date End Date Sarah Lopez DO [address] [place] [address] Referring Physician Emergency Medicine 02/18/23 documented as of this encounter
--- OUTSIDE RECORDS SUMMARY | 2025-03-23 08:10 | XMS_ITS | Encounter Summary ---
Author Organization [facility] Address [address] [place] [address] Care Team Providers Care Pig Sticker Name Role Phone Sarah Lopez DO Unavailable [phone] Encounter Details Date Type Department Care Team (Late Contact Info) Description 03/10/2025 Bamboo flowsheet [facility] OB [address] [place] [phone] Malcolm Pendleton DO [address] [facility] [facility] [address] Mary Garcia, [place] [address] Social History Tobacco Use Types Packs/Day Years [...] DERM [address] [place] [phone] Kayleigh Chung, HAT BLOCKING MACHINE OPERATOR-SCARFER [address] [place] [address] documented as of this encounter Visit Diagnoses Not on filedocumented in this encounter Care Teams Pig Sticker Relationship Specialty Start Date End Date Sarah Lopez DO [address] [place] [address] Referring Physician Emergency Medicine 02/18/23 documented as of this encounter
--- OUTSIDE RECORDS SUMMARY | 2025-03-23 08:10 | XMS_ITS | Encounter Summary ---
Author Organization [facility] Address [id number] [address] [place] [address] Care Team Providers Care Bundle Clerk Name Role Phone No Pcp, No Pcp Primary Care Provider Unavailabl e Encounter Details Date Type Department Care Team (Late st Contact Info) Description 12/09/2024 Orders Only Maternal- Medicine at [facility] [address] [place] [phone] Natalie Díaz, RN Choroid plexus cyst of [...] MD LAB BLOOD ORDERABLES Final Re sult [facility] documented in this encounter Visit Diagnoses Diagnosis Choroid plexus cyst of fetus affecting care of mother, antepartum, fetus 1 documented in this encounter Care Teams Bundle Clerk Relationship Specialty Start Date End Date No Pcp, [place] [address] PCP - General Family Medicine 02/21/24 documented as of this encounter
--- OUTSIDE RECORDS SUMMARY | 2025-03-23 08:10 | XMS_ITS | Encounter Summary ---
Author Organization [facility] Address [address] [place] [address] Care Team Providers Care Materials And Processes Manager Name Role Phone Sarah Lopez DO Unavailable [phone] Encounter Details Date Type Department Care Team (Late Contact Info) Description 01/27/2025 Abstract [facility] OB [address] [place] [phone] Malcolm Pendleton [address] Mary Garcia, [place] [address] Social History Tobacco Use Types Packs/Day Years [...] Office Visit [facility] [address] [place] [phone] Kayleigh Chung, INTEGRATION DIRECTOR-ORDER TAKERS SUPERVISOR [address] [place] [address] documented as of this encounter Visit Diagnoses Not on filedocumented in this encounter Care Teams Materials And Processes Manager Relationship Specialty Start Date End Date Sarah Lopez DO [address] [place] [address] Referring Physician Emergency Medicine 02/18/23 documented as of this encounter
--- OUTSIDE RECORDS SUMMARY | 2025-03-23 08:10 | XMS_ITS | Encounter Summary ---
Author Organization [facility] Address [address] [place] [address] Care Team Providers Care Correctional Officer Captain Name Role Phone Sarah Lopez DO Unavailable [phone] Encounter Details Date Type Department Care Team (Late st Contact Info) Description 01/09/2025 Results Follow-Up [facility] OB [address] [address] Suze Lopez LPN [address] [employer] [place] [phone] Social History Tobacco Use Types Packs/Day Years [...] [address] [place] [address] Kayleigh Chung, ROULETTE DEALER-DISTRICT COURT JUDGE [address] [place] [address] documented as of this encounter Visit Diagnoses Not on filedocumented in this encounter Care Teams Correctional Officer Captain Relationship Specialty Start Date End Date Sarah Lopez DO [address] [place] [address] Referring Physician Emergency Medicine 02/18/23 documented as of this encounter
== END 2025-03-23 08:40 | disposition home or self-care (01) ==
LOC: FBCO 08:06 → FBC 08:08
PROVIDERS: Visit Provider Obstetrics & Gynecology
DX: O26.893 Other specified pregnancy related conditions, third trimester (principal)
CPT/HCPCS: 59025

== ENCOUNTER 2025-03-25 10:25 | Inpatient (IN) | payer OTHER, MEDICAID, SELFPAY ==
--- OUTSIDE RECORDS SUMMARY | 2024-07-23 09:30 | XMS_ITS ---
Author Organization [facility] Address [address] [place] [address] Care Team Providers Care Dinkey Locomotive Operator Name Role Phone Yudelka Lopez Primary Care Provider Dr. Leroy Salazar Unavailable [phone] REASON FOR VISIT cough, congestion Encounters Encounter Location Date Provider Diagnosis [facility] [address] [place] [address] 07/23/2024 Yudelka Lopez Plan Of Treatment No Information Progress Notes * LISHA FONSECA GDOB: [birth year] (34 yo F)Acc No.[id number]:07/23/2024 PROGRESS NOTES Patient: Deb SANCHEZ LISHA Moe Provider: Rowan Lopez :1990 A ge:34 Y S ex:Female Date:07/23/2024 Address:[address], [id number] Subjective: * Chief Complaints: * 1 . Cough, congestion. * Medical History: Objective: * Vitals: Assessment: Plan: * Treatment: * Images: * Electronic signature of Howard Lopez CNP on 03/25/2025 at 10:29 AM EDT Sign off status: Pending * Provider: Rowan Lopez Date: 09/22/2023 Generated for Damon dailey/Timothy/eTranmiaitting on: 0 03/25/2025 10:29 AM EDT
--- OUTSIDE RECORDS SUMMARY | 2024-11-28 05:20 | XMS_ITS ---
Author Organization [facility] Servic es Address [address] [facility] [place] [place] [address] Care Team Providers Care Drill Hand Name Role Phone Yudelka Lopez Primary Care Provider Dr. Leroy Salazar Unavailable [phone] REASON FOR VISIT new pt Encounters Encounter Location Date Provider Diagnosis [facility] [address] [place] [address] 11/28/2024 Leroy Salazar Plan Of Treatment No Information Progress Notes * LISHA FONSECA GDOB: [birth year] (34 yo F)Acc No.[id number]:11/28/2024 Patient: ISAAK MALCOLMLEY Moe Provider: Deb Salazar DDS :1990 A ge:34 Y S ex:Female Date:11/28/2024 Address:[address] [place] [address], [address], [id number] Pcp:Yudelka Lopez Subjective: * Chief Complaints: * 1 . New pt. * Medical History: Objective: * Vitals: Assessment: Plan: * Treatment: * Images: * Electronic signature of Dr. Leroy Salazar , DMD on 03/25/2025 at 10:29 AM EDT Sign off status: Pending * Provider: Deb Salazar DDS Date: 11/28/2024 Generated for Printi ng/Faxing/eTransmitting on: 0 03/25/2025 10:29 AM EDT
--- OUTSIDE RECORDS SUMMARY | 2025-03-17 11:30 | XMS_ITS | Encounter Summary ---
Author Organization [facility] Address [address] [place] [address] Care Team Providers Care Creative Services Manager Name Role Phone Sarah Lopez DO Unavailable [phone] Reason for Visit * Reason Comments Routine Visit Encounter Details Date Type Department Care Team (Late st Contact Info) Description 03/17/2025 11:30 AM EDT Routine [facility] BCP OB [address] [facility] [address] [place] [address] Priscilla Warren PA [address] [place], [facility] Third trimester ([facility]); 37 weeks gestation of ([facility]); HSV (herpes simplex virus) infection; Anemia, unspecified type; Alpha thalassemia silent carrier; Pre-eclampsia in third trimester ([facility]) Social History Tobacco Use Types Packs/Day Years [...] Diagnosis Date Noted 10 weeks gestation of ([facility]) 09/11/2024 First trimester ([facility]) 09/11/2024 Resolved Ambulatory Problems Diagnosis Date Noted [...] of thyroid function studies Acid reflux 02/2017 [facility] Alpha thalassemia silent carrier Anemia Endometriosis Fibroid, uterine History of anemia History of hyperthyroidism Hypothyroidism Irregular menses Menometrorrhagia Nontoxic multinodular goiter Overweight (BMI 25.0-29.9) Syncope 06/2016 [facility] [...] Vitals: Estimated body mass index is 37.38 kg/m?? as calculated from the following: Height as of 02/19/24: 5' 3 . Weight as of this encounter: 211 lb. BP: 122/74 Patient's last menstrual period was 06/23/2024. ASSESSMENT & PLAN ICD-10-CM 1. Third trimester ([facility]) Z34.93 POCT urinalysis dipstick manually resulted 2. 37 weeks gestation of ([facility]) Z3A.37 3. HSV (herpes simplex virus) infection B00.9 4. Anemia, unspecified type D64.9 5. Alpha thalassemia silent carrier D56.3 6. Pre-eclampsia in third trimester ([facility]) O14.93 Return OB: Patient presents today for [...] DERM [address] [place] [phone] Kayleigh Chung APRN-VICE PRESIDENT OF ENGINEERING [address] [place] [address] documented as of this encounter Procedures Procedure Name Priority Date/Time Associated Diagnosis Comments POCT URINALYSIS DIPSTICK Routine 03/17/2025 12:01 PM EDT Third trimester ([facility]) documented in this encounter Results * (ABNORMAL) [...] this encounter Visit Diagnoses Diagnosis Third trimester ([facility]) state, incidental 37 weeks gestation of ([facility]) HSV (herpes simplex virus) infection Herpes simplex without mention of complication Anemia, unspecified type Alpha thalassemia silent carrier Pre-eclampsia in third trimester ([facility]) documented in this encounter Care Teams Creative Services Manager Relationship Specialty Start Date End Date Sarah Lopez DO [address] [place] [address] Referring Physician Emergency Medicine 02/18/23 documented as of this encounter
[2025-03-25] VITALS (30 sets, daily range): BP systolic 107–156; BP diastolic 50–82; PULSE 54–99; TEMP 36.3–36.4; O2SAT 97–100
--- OUTSIDE RECORDS SUMMARY | 2025-03-25 10:29 | XMS_ITS | Encounter Summary ---
Author Organization [facility] Address [address] [place] [address] Phone Care Team Providers Care Car Worker Helper Name Role Phone Yudelka Lopez Primary Care Provider + Encounter Details Date Type Department Care Team (Late st Contact Info) Description 03/31/2022 Orders Only [facility] [address] [place] [address] Conversion, Onbase Social History Tobacco Use Types [...] on filedocumented in this encounter Care Teams Car Worker Helper Relationship Specialty Start Date End Date Yudelka Lopez APRN-CNP [address] [place] [address] PCP - General 01/20/23 documented as of this encounter
--- OUTSIDE RECORDS SUMMARY | 2025-03-25 10:29 | XMS_ITS | Encounter Summary ---
Author Organization [facility] Address [address] [facility] [facility] [place] [address] Care Team Providers Care Missile Pad Mechanic Name Role Phone Sarah Lopez DO Unavailable [phone] Encounter Details Date Type Department Care Team (Late st Contact Info) Description 03/12/2025 Clinisync Result Encounter [facility] External Department Unsolicited Maria Pendleton DO [address] [facility] [place] [address] Social History Tobacco Use Types Packs/Day Years [...] [facility] [address] [place] [address] Kayleigh Chung, MANUFACTURING CLERK-DIRECTOR OF MARKET INTELLIGENCE [address] [place], [place] [address] documented as of this encounter Procedures Procedure Name Priority Date/Time Associated Diagnosis Comments US OB BPP W NON-STRESS 03/12/2025 11:54 AM EDT documented in this encounter Results * US OB BPP W NON-STRESS (03/12/2025 11:54 AM EDT) Anatomical Region Laterality Modality Other 03/12/2025 11:5 4 AM EDT Narrative 03/12/2025 11:56 [place] [address] Ultrasound Report Signed Patient: LEANDRA FONSECA MR#: [id number] : 1990 Acct:[id number] Age/Sex: 34 / F ADM Date: 03/12/25 Loc: [facility] [address]: Maria Pendleton D.O. Ordering Physician: Maria Pendleton D.O. Date of Service: 03/12/25 Procedure(s): US OB BPP w non-stress Accession Number(s): [id number] cc: Maria Pendleton D.O.; Physician,Non-Staff M.Izabela The [address] [address] Patient Name: LEANDRA FONSECA MRN: [id number] date: 1990 Sex: F Assigned Patient Location: US Current Patient Location: US Accession/Order Number: [id number] Exam Date: 03/12/2025 11:52 Report Date: 03/12/2025 [...] Miller M.D. 03/12/2025 11:54 AM Dictation Location: [place] [address] Electronically authenticated by: [id number] Y Date: 03/12/2025 11:54 Dictated By: Michell Miller M.D. Signed By: 03/12/25 1156 DD/ 1154 TD/TT: Polisher Numeral: Procedure Note Radiology, Radiologist, MD - 03/12/2025 [place] [address] Ultrasound Report Signed Patient: LEANDRA FONSECA GMR#: [id number] : 1990Acct:[id number] Age/Sex: 34 / FADM Date: 03/12/25 Loc: [facility] [address]: Maria Pendleton D.O. Ordering Physician: Maria Pendleton D.O. Date of Service: 03/12/25 Procedure(s): US OB BPP w non-stress Accession Number(s): [id number] cc: Maria Pendleton D.O.; Physician,Non-Staff Kacey The [place] [address] Patient Name: LEANDRA FONSECA MRN: [id number] date: 1990 Sex: F Assigned Patient Location: Current Patient Location: US Accession/Order Number: [id number] Exam Date: 03/12/2025 11:52 Report Date: 03/12/2025 [...] Miller M.D. 03/12/2025 11:54 AM Dictation Location: [place] [address] Electronically authenticated by: [id number] Y Date: 1:54 Dictated By: Michell Miller M.D. Signed By:03/12/25 1156 DD/ 1154 TD/TT: Polisher Numeral: Maria Pendleton DO [facility] Final Result documented in this encounter Visit Diagnoses Not on filedocumented in this encounter Care Teams Missile Pad Mechanic Relationship Specialty Start Date End Date Sarah Lopez DO [address] [place] [address] Referring Physician Emergency Medicine 02/18/23 documented as of this encounter
--- OUTSIDE RECORDS SUMMARY | 2025-03-25 10:29 | XMS_ITS | Clinical Summary ---
Author Organization [facility] Address [address] [place] [address] Care Team Providers Care Supervisor Mold Cleaning And Storage Name Role Phone Unavailable Primary Care Provider [...] (2 - Td or Tdap) 01/09/2026 Insurance [facility] [place]
--- OUTSIDE RECORDS SUMMARY | 2025-03-25 10:29 | XMS_ITS | Clinical Summary ---
Author Organization [facility] Address [address] [place] [address] Phone Care Team Providers Care Ap Processor Name Role Phone Yudelka Lopez APRN-JTAC Primary Care Provider + Social History Tobacco [...] this topic Medical Devices Implanted Type Area Operator Engineer Device Identifier Shelf Expiration Date Model / Serial / Lot Mesh, Softmesh 3 X 6, Flat Case [id number] Implanted:Qty: 1 on 04/03/2022 by Sly Crocker MD MPH Mesh Abdomen DAVOL 05/14/2024 [id number] / / [id number] Description:Converted from [employer] [facility]. Please see archived information for full log information. Care Teams Ap Processor Relationship Specialty Start Date End Date Yudelka Lopez, DRAMA CRITIC-JTAC [address] [place] [address] PCP - General 01/20/23
--- OUTSIDE RECORDS SUMMARY | 2025-03-25 10:29 | XMS_ITS | Clinical Summary ---
Author Organization [place] [facility] Address [address] [place] [address] Care Team Providers Care Log Haul Chain Feeder Name Role Phone Unavailable Primary Care Provider [...] Plan of Treatment Not on file Insurance [facility] [place] Advance Directives * Full Code (Latest Code Status on File) Date Activated Date Inactivated Comments 01/06/2016 3:26 PM 01/10/2016 9:07 PM * Full Code Date Activated Date Inactivated Comments 01/06/2016 12:49 PM 01/06/2016 3:26 PM * Full Code Date Activated Date Inactivated Comments 01/05/2016 8:33 PM 01/06/2016 12:49 PM
--- OUTSIDE RECORDS SUMMARY | 2025-03-25 10:30 | XMS_ITS | Encounter Summary ---
Author Organization [facility] Address [address] [place] [address] Care Team Providers Care Fitness Sales Consultant Name Role Phone Sarah Lopez DO Unavailable [phone] Encounter Details Date Type Department Care Team (Late st Contact Info) Description 02/16/2025 Abstract [facility] OB [address] [facility] [place] [phone] Maggy Sanz LPN Social History Tobacco Use [...] DERM [address] [place] [address] Kayleigh Chung, CRIMINAL JUSTICE DEPARTMENT CHAIR-GRAIN BLENDER [address] [place] [address] documented as of this encounter Visit Diagnoses Not on filedocumented in this encounter Care Teams Fitness Sales Consultant Relationship Specialty Start Date End Date Sarah Lopez DO [address] [place] [address] Referring Physician Emergency Medicine 02/18/23 documented as of this encounter
--- OUTSIDE RECORDS SUMMARY | 2025-03-25 10:30 | XMS_ITS | Clinical Summary ---
Author Organization [facility] Healthcare Address [address] [place] [address] Care Team Providers Care Gas Turbine Assembler Name Role Phone Sarah Lopez DO Unavailable [phone] Allergies Active Allergy Reactions Criticality Noted Date [...] and 1,000 mg before bedtime. 5 Active venlafaxine XR (Effexor XR) 37.5 MG 24 hr capsuleIndications :Mood disorder Take 1 capsule (37.5 mg) by mouth Daily Do not crush or chew. 30 capsule 5 03/23/20 26 Active ondansetron ODT (Zofran-ODT) 4 MG disintegrating tabletIndications: Nausea Take 1 tablet (4 mg) by mouth every 6 (six) hours if needed for nausea or vomiting 30 tablet 2 5 03/13/20 25 Active Problems Problem Noted Date Diagnosed Date Mood disorder 03/23/2025 10 weeks gestation of ([facility]) 2023 First trimester ([facility]) 09/11/2024 Estimated Date of Delivery Comme nts Yes 04/05/2025 Based on Ultraso und Encounters Date Type Department Care Team Description 03/23/2025 Refill [facility] OB [address] [place] [address] Maria Pendleton, Mood disorder 03/19/2025 Clinisync Result Encounter NOMS External Department Unsolicited Maria Pendleton, 03/17/2025 11:30 AM EDT Routine [facility] OB [address] [place] [address] Priscilla Warren PA Third trimester ([facility]); 37 weeks gestation of ([facility]); HSV (herpes simplex virus) infection; Anemia, unspecified type; Alpha thalassemia silent carrier; Pre-eclampsia in third trimester ([facility]) 03/17/2025 Bamboo flowsheet NOMS [address] [place] [address] Priscilla Warren PA 03/15/2025 Abstract [facility] OB [facility] [place] [address] Maria Pendleton, 03/12/2025 Clinisync Result Encounter NOMS External Department Unsolicited Maria Pendleton, 03/10/2025 11:10 AM EDT Routine [facility] OB [address] [place] [address] Maria Pendleton, Third trimester ([facility]) 03/10/2025 Bamboo flowsheet [facility] OB [address] [place] [address] Maria Pendleton, 03/05/2025 Clinisync Result Encounter NOMS External Department Unsolicited Maria Pendleton, DO 02/26/2025 Clinisync Result Encounter NOMS External Department Unsolicited Maria Pendleton, DO 02/24/2025 11:40 AM EDT Routine NOMS [address] [place] [address] Maria Pendleton, DO 34 weeks gestation of ([facility]); Third trimester ([facility]) 02/24/2025 Bamboo flowsheet NOM[facility] [address] [place] [address] Maria Pendleton, DO 02/20/[address] [address] [place] [address] Mary Cruz MA 02/19/2025 Clinisync Result Encounter NOMS External Department Unsolicited Maria Pendleton, DO 02/16/2025 Abstract [facility] [address] [place] [address] Maggy Sanz, UTILITY SERVICE WORKER 02/12/2025 Clinisync Result Encounter NOMS External Department Unsolicited Maria Pendleton, DO 02/11/2025 10:50 AM EDT Routine NOM[facility] [address] [place] [address] Priscilla Warren PA Third trimester ([facility]); 32 weeks gestation of ([facility]); Nausea 02/11/2025 Bamboo flowsheet [facility]OM[facility] [address] [place] [address] Priscilla Warren PA 02/04/[address] [place] [address] Suze Lopez, UTILITY SERVICE WORKER 01/30/2025 Abstract [facility] [address] [place] [address] Mary Cruz MA 01/28/2025 External Result Encounter NOMS External Department Unsolicited Priscilla Warren PA 01/27/2025 8:30 AM EDT Routine [facility] OB [address] [place] [address] [place] [address] Maria Pendleton, DO Third trimester ([facility]); 30 weeks gestation of ([facility]); H/O pre-eclampsia in prior , currently ([facility]); H/O delivery, currently ([facility]); Request for sterilization 01/27/2025 Abstract [facility] OB [address] [facility] [address] Maria Pendleton, DO 01/27/2025 Bamboo flowsheet [facility] OB [address] [place] [address] [place] [address] Maria Penldeton, DO 01/20/2025 Abstract [facility] OB [address] [place] [address] [place] [address] Maria Pendleton, 01/15/2025 Telephone [facility] OB [address] [place] [address] [place] [address] Christy Cui MA 01/14/2025 11:20 AM EDT Routine [facility] OB [address] [place] [address] [place] [address] Reema Leslie, JEFFERSON Third trimester ([facility]); 28 weeks gestation of ([facility]) 01/14/2025 External Result Encounter NOMS External Department Unsolicited Maria Pendleton, DO 01/14/2025 Abstract [facility] OB [address] [place] [address] [place] [address] Maria Pendleton, DO 01/14/2025 Bamboo flowsheet [facility] OB [address] [facility] [address] Reema Leslie NP 01/09/2025 Results Follow-Up [facility] OB [address] [place] [address] [place] [address] KimberleeSuze whitney, UTILITY SERVICE WORKER 01/08/2025 Results Follow-Up NOMS [address] [place] [address] KimberleeSuze whitney, UTILITY SERVICE WORKER 01/08/[address] [address] [place] [address] Kimberleechelo Suze, UTILITY SERVICE WORKER 01/08/2025 Clinisync Result Encounter NOMS External Department Unsolicited Maria Pendleton, DO 01/06/2025 Results Follow-Up NOM[facility] [address] [place] [phone] Kimberleechelo Suze, UTILITY SERVICE WORKER 01/06/2025 Clinisync Result Encounter NOMS External Department Unsolicited Priscilla Warren PA 12/30/2024 11:10 AM EDT Routine NOMS [address] [place] [phone] Maria Pendleton, Second trimester ([facility]); 26 weeks gestation of ([facility]); Seen in emergency room; Exposure to STD; HSV (herpes simplex virus) infection 12/30/2024 External Result Encounter NOMS External Department Unsolicited Maria Pendleton, 12/30/2024 Bamboo flowsheet NOMS [address] [place] [address] Maria Pendleton, 12/29/2024 Abstract [facility] [address] [place] [address] Maria Pendleton DO from Last 3 Months [...] DERM [address] [place] [address] Kayleigh Chung APRN-PEDIATRIC ONCOLOGY NURSE [address] [place] [address] Procedures Procedure Name Priority Date/Time Associated Diagnosis Comments US OB BPP W NON-STRESS 03/19/2025 11:40 AM EDT POCT URINALYSIS DIPSTICK Routine 03/17/2025 12:01 PM EDT Third trimester ([facility]) US OB BPP W NON-STRESS 03/12/2025 11:54 AM EDT US OB BPP W NON-STRESS 03/05/2025 12:03 PM EDT US OB BPP W NON-STRESS 02/26/2025 1:13 PM EDT POCT URINALYSIS DIPSTICK Routine 02/24/2025 12:05 PM EDT 34 weeks gestation of ([facility]) Third trimester ([facility]) US OB BPP W NON-STRESS 02/19/2025 11:29 AM EDT US OB BPP W NON-STRESS 02/12/2025 9:06 AM EDT POCT URINALYSIS DIPSTICK Routine 02/11/2025 11:00 AM EDT Third trimester ([facility]) 32 weeks gestation of ([facility]) FERRITIN Routine 01/28/2025 8:32 AM EDT TRANSFERRIN Routine 01/28/2025 8:32 AM EDT RECURRENT VAGINITIS (HTRX) Routine 01/14/2025 11:52 AM EDT POCT URINALYSIS DIPSTICK Routine 01/14/2025 11:31 AM EDT Third trimester ([facility]) TBH CREATININE Routine 01/08/2025 8:35 AM EDT ALL BUN Routine 01/08/2025 8:35 AM EDT ALL CBC WITH AUTO DIFF Routine 01/08/2025 8:35 AM EDT TBH URINE MICROSCOPIC ONLY Routine 01/08/2025 8:05 AM EDT TBH UA (CLEAN/CATCH) PRINTED CIRCUIT BOARD REWORKER/MICRO IF IND. Routine 01/08/2025 8:05 AM EDT [...] EDT Narrative 03/19/2025 11:42 AM EDT The [address] [address] Ultrasound Report Signed Patient: LISHA VALENTIN MR#: [id number] : 1990 Acct:[id number] Age/Sex: 34 / F ADM Date: 03/19/25 Loc: [facility] 250-[address]: Maria Pendleton D.O. Ordering Physician: Maria Pendleton D.O. Date of Service: 03/19/25 Procedure(s): US OB BPP w non-stress Accession Number(s): [id number] cc: Maria Pendleton D.O.; Physician,Non-Staff M.DJorge The [address] [address] Patient Name: LISHA VALENTIN MRN: [facility]:[id number] date: 1990 Sex: F Assigned Patient Location: [facility] Current Patient Location: [facility] Accession/Order Number: [id number] Exam Date: 03/19/2025 11:38 Report Date: 03/19/2025 [...] Miller M.D. 03/19/2025 11:40 AM Dictation Location: [place] [address] Electronically authenticated by: [id number] Y Date: 03/19/2025 11:40 Dictated By: Michell Miller M.D. Signed By: 03/19/25 1142 DD/ 1140 TD/TT: Marine Engineering Consultant: Procedure Note Radiology, Radiologist, - 03/19/2025 [place] [address] Ultrasound Report Signed Patient: LISHA VALENTIN GMR#: [id number] : 1990Acct:[id number] Age/Sex: 34 / FADM Date: 03/19/25 Loc: [facility] 250-[address]: Maria Pendleton D.O. Ordering Physician: Maria Pendleton D.O. Date of Service: 03/19/25 Procedure(s): US OB BPP w non-stress Accession Number(s): [id number] cc: Maria Pendleton D.O.; Physician,Non-Staff Kacey The [place] [id number] Patient Name: LISHA VALENTIN MRN: [facility]:[id number] date: 1990 Sex: F Assigned Patient Location: [facility] Current Patient Location: [facility] Accession/Order Number: [id number] Exam Date: 03/19/2025 11:38 Report Date: 03/19/2025 [...] Miller M.D. 03/19/2025 11:40 AM Dictation Location: [place] [address] Electronically authenticated by: [id number] Y Date: 1:40 Dictated By: Michell Miller M.D. Signed By:03/19/25 1142 DD/ 1140 TD/TT: Marine Engineering Consultant: us Maria Pendleton DO [facility] Final [...] - 362 mg/dL 01/28/2025 11:02 AM EDT [facility] Other Topography unknown / Unknown 01/28/2025 8:32 AM EDT 01/28/2025 8:32 AM EDT Priscilla SRIVASTAVA LAB BLOOD ORDERABLES Final Resul t Performing Organization Address City/[facility] Co de Phone Number [place] [phone], [facility] [address] [place] [phone] * Ferritin (01/28/2025 8:32 AM EDT) FERRITIN 43.0 11.0 - 306.8 ng/mL 01/28/2025 11:09 AM EDT [facility] Other Topography unknown / Unknown 01/28/2025 8:32 AM EDT 01/28/2025 8:32 AM EDT Priscilla SRIVASTAVA LAB BLOOD ORDERABLES Final Resul t Performing Organization Address City/[facility]/ZIP Co de Phone Number [address] [place] [address], [facility] [address] [place] [address] * (ABNORMAL) RECURRENT VAGINITIS (HTRX) (01/14/2025 11:52 AM EDT) Only the most recent of2 resultswithin the time period is included. [facility] ATOPOBIUM VAGINAE 25.517(A) 19.961 - 24.689 ppm 01/15/2025 7:26 AM EDT [facility] ATOPOBIUM VAGINAE Detected(A) 19.961 - 24.689 ppm 01/15/2025 7:26 AM EDT [facility] BVAB 2,3 (BACTERIAL VAGINOSIS ASSOCIATED BACTERIA 2, 3); MOBILUNCUS SPP 23.796(A) 19.961 - 24.689 ppm 01/15/2025 7:26 AM EDT [facility] BVAB 2,3 (BACTERIAL VAGINOSIS ASSOCIATED BACTERIA 2, 3); MOBILUNCUS SPP Detected(A) 19.961 - 24.689 ppm 01/15/2025 7:26 AM EDT [facility] MARION ALBICANS, PARAPSILOSIS, TROPICALIS 0.000 19.961 - 30.770 ppm 01/15/2025 7:26 AM EDT [facility] MARION ALBICANS, PARAPSILOSIS, TROPICALIS Not Detected 19.961 - 30.770 ppm 01/15/2025 7:26 AM EDT [facility] MARION GLABRATA 0.000 23.000 - 32.138 ppm 01/15/2025 7:26 AM EDT [facility] MARION GLABRATA Not Detected 23.000 - 32.138 ppm 01/15/2025 7:26 AM EDT [facility] MARION KRUSEI 0.000 23.000 - 32.271 ppm 01/15/2025 7:26 AM EDT [facility] MARION KRUSEI Not Detected 23.000 - 32.271 ppm 01/15/2025 7:26 AM EDT [facility] CHLAMYDIA TRACHOMATIS 0.000 23.000 - 31.467 ppm 01/15/2025 7:26 AM EDT [facility] CHLAMYDIA TRACHOMATIS Not Detected 23.000 - 31.467 ppm 01/15/2025 7:26 AM EDT [facility] GARDNERELLA VAGINALIS 0.000 19.961 - 24.689 ppm 01/15/2025 7:26 AM EDT [facility] GARDNERELLA VAGINALIS Not Detected 19.961 - 24.689 ppm 01/15/2025 7:26 AM EDT [facility] MEGASPHAERA (TYPES 1, 2) 0.000 19.961 - 24.689 ppm 01/15/2025 7:26 AM EDT [facility] MEGASPHAERA (TYPES 1, 2) Not Detected 19.961 - 24.689 ppm 01/15/2025 7:26 AM EDT [facility] NEISSERIA GONORRHOEAE 0.000 23.000 - 32.117 ppm 01/15/2025 7:26 AM EDT [facility] NEISSERIA GONORRHOEAE Not Detected 23.000 - 32.117 ppm 01/15/2025 7:26 AM EDT [facility] TRICHOMONAS VAGINALIS 0.000 23.000 - 32.119 ppm 01/15/2025 7:26 AM EDT [facility] TRICHOMONAS VAGINALIS Not Detected 23.000 - 32.119 ppm 01/15/2025 7:26 AM EDT [facility] MYCOPLASMA GENITALIUM 0.000 19.961 - 24.689 ppm 01/15/2025 7:26 AM EDT [facility] MYCOPLASMA GENITALIUM Not Detected 19.961 - 24.689 ppm 01/15/2025 7:26 AM EDT [facility] Tissue 01/14/2025 11:5 2 AM EDT 01/15/2025 2:13 AM EDT us Maria Helder DO LAB BLOOD ORDERABLES Final Resul t [employer] [address] [place] [address] * TBH CREATININE (01/08/2025 8:35 AM EDT) Pathologist [facility] CREATININE 0.63 0.55 - 1.02 mg/dL TB TB EGFR-AF DJIBOUTIAN >60 >=60 mL/min/1.7 3m 2 TBH TB EGFR-NON AF DJIBOUTIAN >60 >=60 mL/min/1.7 3m 2 TB 01/08/2025 8:35 AM EDT 01/08/2025 8:39 AM EDT Narrative [facility] - 01/08/2025 8:49 AM EDT Maria Pendleton DO [facility] Final Result [facility] * (ABNORMAL) ALL CBC WITH AUTO DIFF (01/08/2025 8:35 AM EDT) Only the most recent of2 resultswithin the time period is included. Pathologist [facility] TBH WBC 8.9 4.0 - 11.0 10 [...] Maria Helder DO [facility] Final Result [facility] * ALL BUN (01/08/2025 8:35 AM EDT) BLOOD UREA NITROGEN 8.0 7.0 - 18.0 mg/dL TB 01/08/2025 8:35 AM EDT 01/08/2025 8:39 AM EDT Narrative [facility] - 01/08/2025 8:49 AM EDT Maria Helder DO [facility] Final Result [facility] TB * (ABNORMAL) TBH URINE MICROSCOPIC [...] [facility] * (ABNORMAL) TBH UA (CLEAN/CATCH) PRINTED CIRCUIT BOARD REWORKER/MICRO IF IND. (01/08/2025 8:05 AM EDT) COLOR [...] Narrative [facility] - 01/08/2025 9:05 AM EDT Simplilearn Helder DO [facility]IN[facility] Final Result [facility] * GLUCOSE 1 HOUR (01/06/2025 10:42 AM EDT) GLUCOSE 1 HOUR 124 <130 mg/dL TBH 01/06/2025 10:4 2 AM EDT 01/06/2025 10:43 AM EDT Narrative [facility] - 01/06/2025 11:08 AM EDT us Priscilla SRIVASTAVA LAB BLOOD ORDERABLES Final Resul t [facility] from Last 3 Months Insurance [employer] [facility] Care Teams Gas Turbine Assembler Relationship Specialty Start Date End Date Sarah Lopez DO [address] [place] [address] Referring Physician Emergency Medicine 02/18/23
--- OUTSIDE RECORDS SUMMARY | 2025-03-25 10:30 | XMS_ITS | Encounter Summary ---
Author Organization [facility] Address [address] [facility] [place] [address] Care Team Providers Care Traffic Control Technician Name Role Phone Sarah Lopez DO Unavailable [phone] Encounter Details Date Type Department Care Team (Late st Contact Info) Description 03/19/2025 Clinisync Result Encounter NOMS External Department Unsolicited Maria Pendleton, DO [address] [place] [address] Social History Tobacco Use Types Packs/Day Years [...] Office Visit [facility] [address] [place] [address] Kayleigh Chung, INTERNAL GRINDING MACHINE OPERATOR-MANAGER PAYER [address] [place], [place] [phone] documented as of this encounter Procedures Procedure Name Priority Date/Time Associated Diagnosis Comments US OB BPP W NON-STRESS 03/19/2025 11:40 AM EDT documented in this encounter Results * US OB BPP W NON-STRESS (03/19/2025 11:40 AM EDT) Anatomical Region Laterality Modality Other 03/19/2025 11:4 0 AM EDT Narrative 03/19/2025 11:42 [place] [address] Ultrasound Report Signed Patient: LEANDRA FONSECA MR#: [id number] : 1990 Acct:[id number] Age/Sex: 34 / F ADM Date: 03/19/25 [facility]: Maria Pendleton D.O. Ordering Physician: Maria Pendleton D.O. Date of Service: 03/19/25 Procedure(s): US OB BPP w non-stress Accession Number(s): [id number] cc: Maria Pendleton D.O.; Physician,Non-Staff M.Izabela The [place] [id number] Patient Name: LEANDRA FONSECA MRN: [id number] date: 1990 Sex: F [facility] Accession/Order Number: [id number] Exam Date: 03/19/2025 11:38 Report Date: 03/19/2025 [...] Miller M.D. 03/19/2025 11:40 AM Dictation Location: [place] [address] Electronically authenticated by: [id number] Y Date: 03/19/2025 11:40 Dictated By: Michell Miller M.D. Signed By: 03/19/25 1142 DD/ 1140 TD/TT: Inside Sales Manager: Procedure Note Radiology, Radiologist, MD - 03/19/2025 [place] [address] Ultrasound Report Signed Patient: LEANDRA FONSECA GMR#: [id number] : 1990Acct:[id number] Age/Sex: 34 / FADM Date: 03/19/25 Loc: [place] [address]-[address]: Maria Pendleton D.O. Ordering Physician: Maria Pendleton D.O. Date of Service: 03/19/25 Procedure(s): US OB BPP w non-stress Accession Number(s): [id number] cc: Maria Pendleton D.O.; Physician,Non-Staff Kacey The [address] [address] Patient Name: LEANDRA FOSNECA MRN: [id number] date: 1990 Sex: F [facility] Accession/Order Number: [id number] Exam Date: 03/19/2025 11:38 Report Date: 03/19/2025 [...] Miller M.D. 03/19/2025 11:40 AM Dictation Location: [place] [address] Electronically authenticated by: [id number] Y Date: 1:40 Dictated By: Michell Miller M.D. Signed By:03/19/25 1142 DD/ 1140 TD/TT: Inside Sales Manager: Maria Pendleton DO [facility] Final Result documented in this encounter Visit Diagnoses Not on filedocumented in this encounter Care Teams Traffic Control Technician Relationship Specialty Start Date End Date Sarah Lopez DO [address] [place] [address] Referring Physician Emergency Medicine 02/18/23 documented as of this encounter
--- OUTSIDE RECORDS SUMMARY | 2025-03-25 10:30 | XMS_ITS | Encounter Summary ---
Author Organization [facility] Address [address] [place] [address] Care Team Providers Care Knotting Machine Operator Portable Name Role Phone Sarah Lopez DO Unavailable [phone] Encounter Details Date Type Department Care Team (Late st Contact Info) Description 11/21/2024 External Result Encounter [facility] OB [address] [place] [phone] Maria Pendleton DO [address] Mary [place], [place] [address] Social History Tobacco Use Types Packs/Day Years [...] DERM [address] [place] [address] Kayleigh Chung, TECHNICIAN AUTOMATIC-REMELT FURNACE EXPEDITER [address] [place] [address] documented as of this encounter Procedures Procedure Name Priority Date/Time Associated Diagnosis Comments US OB 14+ WEEKS ANATOMY SCAN 11/21/2024 3:40 PM EST documented in this encounter Results * US OB 14+ weeks anatomy scan (11/21/2024 3:40 PM EST) Anatomical Region Laterality Modality Body Ultrasound 11/21/2024 3:40 PM EST Narrative 11/21/2024 3:40 PM EST THIS EXAM WAS PERFORMED AT [facility] NAME: MARIAN HUSAIN : 1990 SEX: F Accession Number: [id number] ORDERING PHYSICIAN: HENNY MONTGOMERY REFERRING PHYSICIAN: MARIA PENDLETON Coding ----- --------- Procedures 74245: Ultrasound, uterus, real time with image documentation, and maternal evaluation plus detailed anatomic examination, transabdominal approach;single or first gestation 70245: Transvaginal Ultrasound (OB) Indication ----- --------- Screening [...] 0 lb 13 oz EFW by Hadlock ([id number]) Head / Face / Neck Biometry: Cephalic index 0.73 5% Nicolaides Medical Equipment Technician 4.4 mm CM 4.2 mm 20% Nicolaides [...] Heart / Thorax RVOT view. LVOT view. 4-comjdy-gtexqcp view. Bicaval view. Extremities / Left hand. [...] artery identified. Recommendations ----- --------- Please see [facility] documentation from today. The patient is [...] - 11/21/2024 THIS EXAM WAS PERFORMED AT [facility] NAME: MARIAN HUSAIN : 1990 SEX: F Accession Number: [id number] ORDERING PHYSICIAN: HENNY MONTGOMERY REFERRING PHYSICIAN: MARIA PENDLETON Coding ----- --------- Procedures 19454: Ultrasound, uterus, real time with imagedocumentation, and maternal evaluation plus detailed anatomic examination, transabdominalapproach;single or first gestation 35105: Transvaginal Ultrasound (OB) Indication ----- --------- Screening [...] Cerebellum tr 22.3 mm 20w 6d 72% [place] Nuchal fold 4.7 mm AC 158.7 mm 21w 0d 53% Hadlock Femur 34.1 mm 20w 5d 41% Hadlock Humerus 31.9 mm 20w 5d 46% [place] HC / AC 1.12 26% Hadlock Weight Calculation: EFW 376 g 47% Hadlock EFW (lb,oz) 0 lb 13 oz EFW by Hadlock ([id number]) Head / Face / Neck Biometry: Cephalic index 0.73 5% Nicolaides Medical Equipment Technician 4.4 mm CM 4.2 mm 20% Nicolaides [...] Heart / Thorax RVOT view. LVOT view. 3-oqxhjk-hbajfyu view. Bicavalview. Extremities / Left hand. Skeleton [...] artery identified. Recommendations ----- --------- Please see [facility] documentation from today. The patient is [...] on filedocumented in this encounter Care Teams Knotting Machine Operator Portable Relationship Specialty Start Date End Date Sarah Lopez DO [address] [place] [address] Referring Physician Emergency Medicine 02/18/23 documented as of this encounter
--- OUTSIDE RECORDS SUMMARY | 2025-03-25 10:30 | XMS_ITS | Encounter Summary ---
Author Organization [facility] Address [id number] [address] [place] [address] Care Team Providers Care Metal Alloy Scientist Name Role Phone No Pcp, No Pcp Primary Care Provider Unavailabl e Encounter Details Date Type Department Care Team (Late st Contact Info) Description 10/10/2024 Abstract Maternal- Medicine at [facility] [address] [place] [phone] Torey Barnett MD [address] [place] [address] Social History Tobacco Use Types Packs/Day Years [...] ORDERABLES Larissa l Result Performing Organization [facility] Co de Phone Number MANUALLY TRANSCRIBED RESULTS * Syphilis Total(Unknown Syphilis Status) (09/11/2024) Syphilis Total non- reactive MANUALLY TRANSCRIBED RESULTS us Not In System Ref Prov LAB BLOOD ORDERABLES Larissa l Result Performing Organization Address [facility] Co de Phone Number MANUALLY TRANSCRIBED RESULTS documented in this encounter Visit Diagnoses Not on filedocumented in this encounter Care Teams Metal Alloy Scientist Relationship Specialty Start Date End Date No Pcp, [place] [address] PCP - General Family Medicine 02/21/24 documented as of this encounter
--- OUTSIDE RECORDS SUMMARY | 2025-03-25 10:30 | XMS_ITS | Encounter Summary ---
Author Organization [facility] Address [address] [place] [address] [place] [address] Care Team Providers Care Invasive Cardiovascular Technologist Name Role Phone Sarah Lopez DO Unavailable [phone] Encounter Details Date Type Department Care Team (Late Contact Info) Description 11/24/2024 Abstract [facility] [address] [place] [phone] Malcolm Pendleton [address] Mary Garcia, [place] [address] Social History Tobacco Use Types Packs/Day Years [...] Office Visit [facility] [address] [place] [phone] Kayleigh Chung, ANIMAL CONTROL SPECIALIST-ARTIST MANAGER [address] [place] [address] documented as of this encounter Visit Diagnoses Not on filedocumented in this encounter Care Teams Invasive Cardiovascular Technologist Relationship Specialty Start Date End Date Sarah Lopez DO [address] [place] [address] Referring Physician Emergency Medicine 02/18/23 documented as of this encounter
--- OUTSIDE RECORDS SUMMARY | 2025-03-25 10:30 | XMS_ITS | Encounter Summary ---
Author Organization [facility] Address [address] [place] [address] Care Team Providers Care Network Developer Name Role Phone Sarah Lopez DO Unavailable [phone] Encounter Details Date Type Department Care Team (Late st Contact Info) Description 01/06/2025 Results Follow-Up [facility] [address] [address] Suze Lopez LPN [address] [place] [id number] Social History Tobacco Use Types Packs/Day Years [...] DERM [address] [place] [address] Kayleigh Chung APRN-AS400 OPERATOR [address] [facility] [address] [place] [address] documented as of this encounter Visit Diagnoses Not on filedocumented in this encounter Care Teams Network Developer Relationship Specialty Start Date End Date Sarah Lopez DO [address] [place] [address] Referring Physician Emergency Medicine 02/18/23 documented as of this encounter
--- OUTSIDE RECORDS SUMMARY | 2025-03-25 10:30 | XMS_ITS | Encounter Summary ---
Author Organization [facility] Address [address] [place] [address] Care Team Providers Care Cane Flume Feeding Machine Operator Name Role Phone Sarah Lopez DO Unavailable [phone] Encounter Details Date Type Department Care Team (Late Contact Info) Description 03/15/2025 Abstract [facility] [address] [place] [phone] Malcolm Pendleton [address] Mary Garcia, [place] [address] Social History Tobacco Use Types Packs/Day Years [...] Office Visit [facility] [address] [place] [phone] Kayleigh Chung, BASKETBALL COACH-JOB DEVELOPER [address] [place] [address] documented as of this encounter Visit Diagnoses Not on filedocumented in this encounter Care Teams Cane Flume Feeding Machine Operator Relationship Specialty Start Date End Date Sarah Lopez DO [address] [place] [address] Referring Physician Emergency Medicine 02/18/23 documented as of this encounter
--- OUTSIDE RECORDS SUMMARY | 2025-03-25 10:30 | XMS_ITS | Encounter Summary ---
Author Organization [facility] Address [address] [address] Care Team Providers Care Bankruptcy Manager Name Role Phone Sarah Lopez DO Unavailable [phone] Encounter Details Date Type Department Care Team (Late st Contact Info) Description 01/08/2025 Results Follow-Up [facility] [address] [place] [address] Suze Lopez LPN [address] [place] [phone] Social History Tobacco Use Types Packs/Day Years [...] DERM [address] [place] [phone] Kayleigh Chung APRN-RETAIL SALESPERSON [address] [place], [place] [phone] documented as of this encounter Visit Diagnoses Not on filedocumented in this encounter Care Teams Bankruptcy Manager Relationship Specialty Start Date End Date Sarah Lopez DO [address] [place] [address] Referring Physician Emergency Medicine 02/18/23 documented as of this encounter
--- OUTSIDE RECORDS SUMMARY | 2025-03-25 10:30 | XMS_ITS | Encounter Summary ---
Author Organization [facility] Address [address] [place] [address] Care Team Providers Care Rn Social Services Name Role Phone Sarah Lopez DO Unavailable [phone] Encounter Details Date Type Department Care Team (Late st Contact Info) Description 01/30/2025 Abstract [facility] [address] [place] [address] Mary Cruz MA Social History Tobacco Use [...] DERM [address] [place] [address] Kayleigh Chung, ADVERTISING SALES EXECUTIVE-GLOVE EXAMINER [address] [place] [address] documented as of this encounter Visit Diagnoses Not on filedocumented in this encounter Care Teams Rn Social Services Relationship Specialty Start Date End Date Sarah Lopez DO [address] [place] [address] Referring Physician Emergency Medicine 02/18/23 documented as of this encounter
--- OUTSIDE RECORDS SUMMARY | 2025-03-25 10:30 | XMS_ITS | Encounter Summary ---
Author Organization [facility] Address [address] [place] [address] Care Team Providers Care Airplane Technician Name Role Phone Sarah Lopez DO Unavailable [phone] Encounter Details Date Type Department Care Team (Late Contact Info) Description 12/16/2024 Abstract [facility] OB [address] [place] [phone] Malcolm Pendleton [address] Mary Garcia, [place] [address] Social History Tobacco Use Types Packs/Day Years [...] Visit [facility] [address] [place] [phone] Kayleigh Chung, WEB COORDINATOR-SIDEROGRAPHIST [address] [place] [address] documented as of this encounter Visit Diagnoses Not on filedocumented in this encounter Care Teams Airplane Technician Relationship Specialty Start Date End Date Sarah Lopez DO [address] [place] [address] Referring Physician Emergency Medicine 02/18/23 documented as of this encounter
--- OUTSIDE RECORDS SUMMARY | 2025-03-25 10:30 | XMS_ITS | Encounter Summary ---
Author Organization [facility] Address [address] [place] [address] Care Team Providers Care Drilling Contractor Name Role Phone Sarah Lopez DO Unavailable [phone] Encounter Details Date Type Department Care Team (Late Contact Info) Description 01/20/2025 Abstract [facility] OB [address] [place] [phone] Malcolm Pendleton [address] Mary Garcia, [place] [address] Social History Tobacco Use Types Packs/Day Years [...] Office Visit [facility] [address] [place] [address] Kayleigh Chung, VARNISH MAKER HELPER-LURE MAKER [address] [place] [address] documented as of this encounter Visit Diagnoses Not on filedocumented in this encounter Care Teams Drilling Contractor Relationship Specialty Start Date End Date Sarah Lopez DO [address] [place] [address] Referring Physician Emergency Medicine 02/18/23 documented as of this encounter
--- OUTSIDE RECORDS SUMMARY | 2025-03-25 10:30 | XMS_ITS | Encounter Summary ---
Author Organization [facility] Address [address] [place] [address] Care Team Providers Care Hood Fitter Name Role Phone Sarah Lopez DO Unavailable [phone] Encounter Details Date Type Department Care Team (Late Contact Info) Description 11/10/2024 Abstract [facility] [address] [place] [address] Ingrid Esquivel NP Social History Tobacco Use [...] DERM [address] [place] [address] Kayleigh Chung, GAS WELDER-MARINE SURVEYOR [address] [place] [address] documented as of this encounter Visit Diagnoses Not on filedocumented in this encounter Care Teams Hood Fitter Relationship Specialty Start Date End Date Sarah Lopez DO [address] [place] [address] Referring Physician Emergency Medicine 02/18/23 documented as of this encounter
--- OUTSIDE RECORDS SUMMARY | 2025-03-25 10:30 | XMS_ITS | Encounter Summary ---
Author Organization [facility] Address [address] [place] [address] Care Team Providers Care Pathology Laboratory Director Name Role Phone Sarah Lopez DO Unavailable [phone] Encounter Details Date Type Department Care Team (Late Contact Info) Description 11/21/2024 Abstract [facility] OB [address] [place] [phone] Malcolm Pendleton [address] Mary Garcia, [place] [address] Social History Tobacco Use Types Packs/Day Years [...] Office Visit [facility] [address] [place] [address] Kayleigh Chung, AIR CONDITIONING SUPERVISOR-RADIO TELEVISION ANNOUNCER [address] [place] [address] documented as of this encounter Visit Diagnoses Not on filedocumented in this encounter Care Teams Pathology Laboratory Director Relationship Specialty Start Date End Date Sarah Lopez DO [address] [place] [address] Referring Physician Emergency Medicine 02/18/23 documented as of this encounter
--- OUTSIDE RECORDS SUMMARY | 2025-03-25 10:30 | XMS_ITS | Encounter Summary ---
Author Organization [facility] Address [id number] [address] [place] [address] Care Team Providers Care Leadite Man Name Role Phone No Pcp, No Pcp Primary Care Provider Unavailabl e Encounter Details Date Type Department Care Team (Late st Contact Info) Description 12/01/2024 Orders Only Maternal- Medicine at [facility] [address] [place] [address] Natalie Díaz, RN Choroid plexus cyst of [...] 1 documented in this encounter Care Teams Leadite Man Relationship Specialty Start Date End Date No Pcp, [place] [address] PCP - General Family Medicine 02/21/24 documented as of this encounter
--- OUTSIDE RECORDS SUMMARY | 2025-03-25 10:30 | XMS_ITS | Clinical Summary ---
Author Organization [facility] Address [id number] [address] [place] [address] Care Team Providers Care Vocational Services Specialist Name Role Phone No Pcp, No [...] Description 02/26/2025 Telephone Maternal- Medicine at [facility] [address] [place] [address] Caroline Chavira RN 02/04/2025 Telephone Maternal Medicine [place] [address] [place] [address] Josey Valentine 01/28/2025 Orders Only Maternal- Medicine at [facility] [address] [place] [address] Marci Coppola CMA Thalassemia alpha carrier (Primary Dx); Family history of sickle cell trait; Family history of DVT; History of anemia; Choroid plexus cyst of fetus affecting care of mother, antepartum, fetus 1; Abnormal genetic test during ; Previous delivery affecting , antepartum; History of pre-eclampsia in prior , currently in first trimester 01/28/2025 Telephone Maternal Medicine [place] [address] [place] [address] Josey Valentine 01/27/2025 9:56 AM EDT - 01/27/2025 11:59 PM EDT Hospital Encounter [facility] - Ultrasound [address] [place] [address] History of anemia Discharge Disposition: Home 01/27/2025 Travel 01/13/2025 9:00 AM EDT - 01/13/2025 11:59 PM EDT Hospital Encounter [facility] - [facility]ound [address] [place] [address] Alpha thalassemia silent carrier Discharge Disposition: Home [...] period is included. Anatomical Region Laterality Modality OB-PATIENT PARTNER Ultrasound 01/27/2025 10:0 9 AM EDT Narrative 01/27/2025 11:10 AM EDT NAME: MARIAN HUSAIN : 1990 SEX: F Accession Number: [id number] ORDERING PHYSICIAN: TOREY MONTGOMERY REFERRING PHYSICIAN: MARIA HARTLEY Coding ----- --------- Procedures [id number]: Follow-up Ultrasound, per fetus 73191: Doppler velocimetry, ; middle cerebral artery Indication [...] EFW (oz) 3 oz EFW by: Hadlock ([id number]) Extended Tibia 48.0 mm 29w 0d 16% Osiel Bit Sharpener Operator 3.6 mm CM 5.9 mm 19% [...] Heart/Thorax: 4-chamber view. RVOT view. LVOT view. 9-gavhnj-gkimjre view. Situs. Aortic arch view. Bicaval view. [...] HUSAIN : 1990 SEX: F Accession Number: [id number] ORDERING PHYSICIAN: TOREY MONTGOMERY REFERRING PHYSICIAN: MARIA HARTLEY Coding ----- --------- Procedures [id number]: Follow-up Ultrasound, per fetus [address]4767: Doppler velocimetry, ; middle cerebral artery Indication [...] EFW (oz) 3 oz EFW by: Hadlock ([id number]) Extended Tibia 48.0 mm 29w 0d 16% Osiel Bit Sharpener Operator 3.6 mm CM 5.9 mm 19% [...] Heart/Thorax: 4-chamber view. RVOT view. LVOT view. 7-rdqazx-ybhpcoi view.Situs. Aortic arch view. Bicaval view. Ductal [...] PI 1.99 30% [place] RI 0.84 71% [facility] PS 50.72 cm/s PS 1.24 MoM ED [...] byprimary OB provider unless otherwise specified by [facility]. Results forwarded to ordering provider so they can follow up with thepatient as necessary. us Torey Montgomery MD [facility] ORDERABLES Final Resul t from Last 3 Months Insurance [employer] [place] [employer] Care Teams Vocational Services Specialist Relationship Specialty Start Date End Date No Pcp, No Pcp KRISTOPHER [place] [address] PCP - General Family Medicine 02/21/24
--- OUTSIDE RECORDS SUMMARY | 2025-03-25 10:30 | XMS_ITS | Encounter Summary ---
Author Organization [facility] Address [address] [place] [address] Care Team Providers Care Aromatherapist Name Role Phone Sarah Lopez DO Unavailable [phone] Encounter Details Date Type Department Care Team (Late Contact Info) Description 01/27/2025 Abstract [facility] OB [address] [place] [phone] Malcolm Pendleton [address] Mary Garcia, [place] [address] Social History Tobacco Use Types Packs/Day Years [...] Office Visit [facility] [address] [place] [phone] Kayleigh Chung, HOSE WRAPPER-RN INTERNSHIP [address] [place] [address] documented as of this encounter Visit Diagnoses Not on filedocumented in this encounter Care Teams Aromatherapist Relationship Specialty Start Date End Date Sarah Lopez DO [address] [place] [address] Referring Physician Emergency Medicine 02/18/23 documented as of this encounter
--- OUTSIDE RECORDS SUMMARY | 2025-03-25 10:30 | XMS_ITS | Encounter Summary ---
Author Organization [facility] Address [address] [place] [address] [place] [address] Care Team Providers Care Wound Care Physician Name Role Phone Sarah Lopez DO Unavailable [phone] Encounter Details Date Type Department Care Team (Late st Contact Info) Description 01/09/2025 Results Follow-Up [facility] [address] [place] [address] Suze Lopez LPN [address] [place] [id number] Social History Tobacco Use Types Packs/Day Years [...] DERM [address] [place] [address] Kayleigh Chung, RETIREMENT PLAN COUNSELOR-VICE PRESIDENT MARKETING & DEVELOPMENT [address] [place] [address] documented as of this encounter Visit Diagnoses Not on filedocumented in this encounter Care Teams Wound Care Physician Relationship Specialty Start Date End Date Sarah Lopez DO [address] [place] [address] Referring Physician Emergency Medicine 02/18/23 documented as of this encounter
--- OUTSIDE RECORDS SUMMARY | 2025-03-25 10:30 | XMS_ITS | Encounter Summary ---
Author Organization [facility] Address [address] [place] [address] Care Team Providers Care Mine Development Engineer Name Role Phone Sarah Lopez DO Unavailable [phone] Encounter Details Date Type Department Care Team (Late Contact Info) Description 03/17/2025 Bamboo flowsheet [facility] [address] [place] [phone] Priscilla Warren PA [address] [place], [facility] Social History Tobacco Use [...] DERM [address] [place] [phone] Kayleigh Chung, BRAND MARKETING COORDINATOR-LIFE CYCLE ASSESSMENT ANALYST [address] [place] [address] documented as of this encounter Visit Diagnoses Not on filedocumented in this encounter Care Teams Mine Development Engineer Relationship Specialty Start Date End Date Sarah Lopez DO [address] [place] [address] Referring Physician Emergency Medicine 02/18/23 documented as of this encounter
--- OUTSIDE RECORDS SUMMARY | 2025-03-25 10:30 | XMS_ITS | Patient Health Record ---
Author Organization [facility] es Address [address] [facility] [place] [address] Care Team Providers Care Sound Technician Name Role Phone John Yudelka Primary Care Provider [phone] Leroy Salazar Unavailable [phone] Allergies Allergen (clinical drug ingredient) Drug/Non Drug Allergy documented on EMR Reaction Allergy Type Onset Date Status labetalol Labetalol HCl shortness of breath Drug Allergy Active Results Component Value Reference Range Notes Ethyl Alcohol Profile Reviewed date:08/07/2024 07:53:16 AM Interpretation: Performing Lab:, [facility], [address] [place] [address] Notes/Report: Ethanol <10 Percent Ethanol TNP HCG,Urine Reviewed date:07/14/2024 05:15:14 PM Interpretation: Performing Lab: Notes/Report: Name Collection Type:: Clean-Voided Midstream HCG Qualitative,Urine Negative CT abdomen pelvis w con Reviewed date:07/14/2024 04:15:57 PM Interpretation: Performing Lab: Notes/Report: [facility] [place] [address] [place] [address] Scan Report Signed Patient: Lisha Fonseca MR#: [id number] : 1990 Acct:[id number] Age/Sex: 34 / F ADM Date: 07/14/24 Loc: ER Room: Type: [facility] ER Attending Dr: Copies to: DO Lety [...] Mancera Jr., D.O.07/14/2024 2:43 PM Dictation Location: [place] [address] Transcribed By: [facility] 07/14/24 1443 Dictated By: Leroy Mancera Jr, DO 07/14/24 1438 Signed By: <Electronically signed by Leroy Mancera Jr, DO in [place]> 07/14/24 1443 Quick Strep (Not yet reviewe d by provider) Interpretation: Performing Lab:, [facility], [address] [place] Notes/Report: Streptococcus pyogenes Ag [Presence] in Throat by Rapid immunoassay Negative for Group A Strep Antigen Note 1 ---- NOTE 2 Results are those of a screening test. NOTE 3 If clinically indica delmer please order a culture. NOTE 4 ---- NOTE 5 Reference range = Negative Complete Blood Count Auto Di ff (Not yet reviewed by provider) Interpretation: Performing Lab:, [facility], [address], [place] Notes/Report: [...] 10*3/uL Monocyte Distribution Width 20.57 0.00-20.00 % Complete Blood Count Auto Di ff Reviewed date:08/07/2024 07:53:16 AM Interpretation: Performing Lab:, [facility], [address] Notes/Report: White Blood Count 7.9 3.8-11.6 10*3/uL [...] Reviewed date:07/14/2024 05:15:14 PM Interpretation: Performing Lab:, [facility], [address] Notes/Report: For adults in ED, MDW > [...] Reviewed date:07/14/2024 05:15:14 PM Interpretation: Performing Lab:, [facility], [address] [place] Notes/Report: Total Protein 7.2 6.4-8.9 g/dL Albumin [...] Reviewed date:08/07/2024 07:53:16 AM Interpretation: Performing Lab:, [facility], [address], [place] Notes/Report: Approximate Approximate hCG Gestational Age Range (mIU/ml) (weeks) 0.2-1 5-50 1-2 50-500 2-3 100-5,000 3-4 500-10,000 4-5 1,000-50,000 5-6 10,000-100,000 6-8 15,000-200,000 8-12 10,000-100,000 HCG,Quantitative 81912.00 Comprehensive Metabolic Pane l Reviewed date:08/07/2024 07:53:16 AM Interpretation: Performing Lab:, [facility], [address] [place] Notes/Report: Glucose 98 70-100 mg/dL Random Glucose [...] et reviewed by provider) Interpretation: Performing Lab:, [facility], [address] [facility] Notes/Report: Glucose 73 70-100 mg/dL Random [...] re viewed by provider) Interpretation: Performing Lab:, [facility], [address] [facility] Notes/Report: BioFire Detected Detected Not Detecte This is a duplicate RP2.1 COVID (PCR) result to be used for statistical tracking purpose only. Dipstick and Microscopic (No t yet reviewed by provider) Interpretation: Performing Lab:, [facility], [address] [facility] Notes/Report: Name Collection Type:: Clean-Voided Midstream Color,Urine Light-Yellow Yellow Appearance,Urine Clear Clear Specificy [place],Urine 1.011 1.001-1.030 pH,Urine 6.5 5.0-9.0 Leukocyte Esterase,Urine [...] yet reviewed by provider) Interpretation: Performing Lab:, [facility], [address], [place] [place] Notes/Report: Adenovirus [...] Reviewed date:07/14/2024 05:15:14 PM Interpretation: Performing Lab:, [facility], [address] Notes/Report: COVID-19 Cepheid Result Negative [...] Reviewed date:07/14/2024 05:15:14 PM Interpretation: Performing Lab:, [facility], [address] , [place] [place] Notes/Report: Name Collection Type:: Clean-Voided Midstream Color,Urine Yellow Yellow Appearance,Urine Clear Clear Specificy [place],Urine 1.030 1.001-1.030 pH,Urine 6.0 5.0-9.0 Leukocyte Esterase,Urine [...] Reviewed date:07/14/2024 05:15:14 PM Interpretation: Performing Lab:, [facility], [address] [place] Notes/Report: This is a duplicate CepAstonish Results Xpert Xpress CoV-2/Flu/RSV Plus RNA by RT-PCR [...] down, depressed, or hopeless More than h halfway the days Trouble falling or staying a [...] 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 Stress is when someone feels tense, nervous, anxious, or cant sleep at night because their mind is troubled Not at all In the past year have you sp ent more than 2 nights in a row in a usp, jail, [place] health [place] center, or juvenile correctional facility? No Are [...] Status W/U Status Risk Notes Problem Hyperthyroidism (24290613) Hyperthyroidism (E05.90) Active confirmed Problem Thyroid nodule (777074674) Thyroid nodule (E04.1) Active confirmed Problem Iron deficiency anemia (25605234) Iron deficiency anemia, unspecified iron deficiency anemia type (D50.9) Active confirmed Problem Migraine with aura (8854761) Migraine with aura and without status migrainosus, not intractable (G43.109) Active confirmed Problem Endometriosis (875964143) Endometriosis (N80.9) Active confirmed Problem Anxiety disorder (267470202) Anxiety disorder, unspecified (F41.9) Active confirmed Encounters Encounter Location Date Provider Diagnosis [facility] [address] [place] [address] 07/18/2024 [facility] [address] [place] [address] 08/13/2024 [facility] [address] [place] [address] 12/19/2024 Leroy Salazar Encounter for dental examination [...] Insured Coverage Start Date Coverage End Date [facility] [address] [place] [address] [id number] LISHA FONSECA Other 1 [employer] [place] Medicaid [address] [place] [address] [id number] LISHA FONSECA Self - patient is the insured 3 [address] Wrap [employer] [facility] [address] [place] [address] [id number] LISHA FONSECA Self - patient is the insured 3 3 Wrap [facility] [place] [address] [place] [address] [id number] LISHA FONSECA Self - patient is the insured 3 zD[address]AL DQ [facility] CHP [place]-termed 22 [address] [place] [address] [id number] LISHA FONSECA Self - patient is the insured 2 zDental MEDICAID [facility] after [facility] CHP-terme d 22 [address] [place] [address] [phone] [id number] LISHA FONSECA Self - patient is the insured 2 DENTAL HU[employer] [address] [address] [place] [address] [id number] LISHA FONSECA 5 Dental Wrap [facility] [employer] [address] [place] [address] [id number] LISHA FONSECA Self - patient is the insured 5 Dental [employer] DQ [address] [address] [place] [address] [id number] LISHA FONSECA Self - patient is the insured 5 Medical (General) History Medical History History ICD Code hypertension anemia Covid 19 Surgical History Surgery Date(Month/Year) section-x2 Endometrial Tumor Resection 04/03/22 Hospitalization History Reason Date(Month/Year) see surgical Child x2
--- OUTSIDE RECORDS SUMMARY | 2025-03-25 10:30 | XMS_ITS | Encounter Summary ---
Author Organization [facility] Address [id number] [address] [place] [address] Care Team Providers Care Restorer Paper And Prints Name Role Phone No Pcp, No Pcp Primary Care Provider Unavailabl e Encounter Details Date Type Department Care Team (Late st Contact Info) Description 12/09/2024 Orders Only Maternal- Medicine at [facility] [address] [place] [address] Natalie Díaz, RN Choroid plexus cyst of [...] MD LAB BLOOD ORDERABLES Final Re sult [facility] documented in this encounter Visit Diagnoses Diagnosis Choroid plexus cyst of fetus affecting care of mother, antepartum, fetus 1 documented in this encounter Care Teams Restorer Paper And Prints Relationship Specialty Start Date End Date No Pcp, [place] [address] PCP - General Family Medicine 02/21/24 documented as of this encounter
--- OUTSIDE RECORDS SUMMARY | 2025-03-25 10:30 | XMS_ITS | Encounter Summary ---
Author Organization [facility] Address [address] [place] [address] Care Team Providers Care Dispensing Optician Apprentice Name Role Phone Sarah Lopez DO Unavailable [phone] Encounter Details Date Type Department Care Team (Late Contact Info) Description 01/14/2025 Abstract [facility] [address] [place] [phone] Malcolm Pendleton [address] Mary Garcia, [place] [address] Social History Tobacco Use Types Packs/Day Years [...] Office Visit [facility] [address] [place] [phone] Kayleigh Chung, WEIGH MACHINE OPERATOR-PRIMARY THERAPIST [address] [place] [address] documented as of this encounter Visit Diagnoses Not on filedocumented in this encounter Care Teams Dispensing Optician Apprentice Relationship Specialty Start Date End Date Sarah Lopez DO [address] [place] [address] Referring Physician Emergency Medicine 02/18/23 documented as of this encounter
--- OUTSIDE RECORDS SUMMARY | 2025-03-25 10:30 | XMS_ITS | Encounter Summary ---
Author Organization [facility] Address [address] [place] [address] Care Team Providers Care Group Exercise Manager Name Role Phone Sarah Lopez DO Unavailable [phone] Encounter Details Date Type Department Care Team (Late Contact Info) Description 12/29/2024 Abstract [facility] [address] [place] [phone] Malcolm Pendleton [address] Mary Garcia, [place] [address] Social History Tobacco Use Types Packs/Day Years [...] [address] [place] [phone] Kayleigh Chung, PHOTOENGRAVING HELPER-MANAGER PRODUCT MARKETING [address] [place] [address] documented as of this encounter Visit Diagnoses Not on filedocumented in this encounter Care Teams Group Exercise Manager Relationship Specialty Start Date End Date Sarah Lopez DO [address] [place] [address] Referring Physician Emergency Medicine 02/18/23 documented as of this encounter
--- OUTSIDE RECORDS SUMMARY | 2025-03-25 10:30 | XMS_ITS | Encounter Summary ---
Author Organization [facility] Address [address] [place] [address] Care Team Providers Care Vascular Tech Name Role Phone Sarah Lopez DO Unavailable [phone] Encounter Details Date Type Department Care Team (Late Contact Info) Description 12/17/2024 Abstract [facility] OB [address] [place] [phone] Malcolm Pendleton [address] Mary Garcia, [place] [address] Social History Tobacco Use Types Packs/Day Years [...] [facility] [address] [place] [address] Kayleigh Chung, SIGNS AND DISPLAYS SALES REPRESENTATIVE-SCREENING NURSE [address] [place] [address] documented as of this encounter Visit Diagnoses Not on filedocumented in this encounter Care Teams Vascular Tech Relationship Specialty Start Date End Date Sarah Lopez DO [address] [place] [address] Referring Physician Emergency Medicine 02/18/23 documented as of this encounter
--- OUTSIDE RECORDS SUMMARY | 2025-03-25 10:31 | XMS_ITS | Encounter Summary ---
Author Organization [facility] Address [address] [place] [address] Care Team Providers Care Single Wire Saw Operator Name Role Phone Sarah Lopez DO Unavailable [phone] Encounter Details Date Type Department Care Team (Late Contact Info) Description 08/26/2024 Abstract [facility] [address] [place] [phone] Malcolm Pendleton [address] Mary Garcia, [place] [address] Social History Tobacco Use Types Packs/Day Years [...] Office Visit [facility] [address] [place] [phone] Kayleigh Chung, MOTION PICTURE CAMERAMAN-BUNGHOLE BORER [address] [place] [address] documented as of this encounter Visit Diagnoses Not on filedocumented in this encounter Care Teams Single Wire Saw Operator Relationship Specialty Start Date End Date Sarah Lopez DO [address] [place] [address] Referring Physician Emergency Medicine 02/18/23 documented as of this encounter
--- OUTSIDE RECORDS SUMMARY | 2025-03-25 10:31 | XMS_ITS | Encounter Summary ---
Author Organization [facility] Address [address] [place] [address] Care Team Providers Care Restaurant Hourly Manager Name Role Phone Sarah Lopez DO Unavailable [phone] Encounter Details Date Type Department Care Team (Late st Contact Info) Description 08/27/2024 Clinisync Result Encounter [facility] External Department Unsolicited Maria Pendleton DO [address] [place] [address] Social History Tobacco Use Types Packs/Day Years [...] Office Visit [facility] [address] [place] [address] Kayleigh Chung, SQUARING SHEAR OPERATOR-PREMIUM REPRESENTATIVE [address] [place], [place] [address] documented as of this encounter Procedures Procedure Name Priority Date/Time Associated Diagnosis Comments US OB TRANSVAGINAL 08/27/2024 4: 27 AM EST documented in this encounter Results * US OB TRANSVAGINAL (08/27/2024 4:27 AM EST) Anatomical Region Laterality Modality Other 08/27/2024 4:27 AM EST Narrative 08/27/2024 4:30 [place] [address] Ultrasound Report Signed Patient: LEANDRA FONSECA MR#: [id number] : 1990 Acct:[id number] Age/Sex: 34 / F ADM Date: 08/26/24 Loc: [facility] Attending Dr: Maria Pendleton D.O. Ordering Physician: Maria Pendleton D.O. Date of Service: 08/26/24 Procedure(s): US OB transvaginal Accession Number(s): [id number] cc: Maria Pendleton D.O.; Physician,Non-Staff Kacey [address] [address] Patient Name: LEANDRA FONSECA MRN: [id number] date: 1990 Sex: F Assigned Patient Location: [facility] Current Patient Location: Accession/Order Number: [id number] Exam Date: 08/26/2024 08:59 Report Date: 08/27/2024 [...] M.D. Signed By: 08/27/240 DD/ 6 TD/TT: Roll Forming Machine Set Up Operator: Procedure Note Radiology, Radiologist, MD - 08/27/2024 [place] [address] Ultrasound Report Signed Patient: LEANDRA FONSECA GMR#: [id number] : 1990Acct:[id number] Age/Sex: 34 / FADM Date: 08/26/24 Loc: [facility] Attending Dr: Maria Pendleton D.O. Ordering Physician: Maria Pendleton D.O. Date of Service: 08/26/24 Procedure(s): US OB transvaginal Accession Number(s): [id number] cc: Maria Pendleton D.O.; Physician,Non-Staff [place] [id number] Patient Name: LEANDRA FONSECA MRN: [id number] date: 1990 Sex: F Assigned Patient Location: [facility] Current Patient Location: Accession/Order Number: [id number] Exam Date: 08/26/2024 08:59 Report Date: 08/27/2024 [...] Miguel M.D. Signed By:08/27/24429 DD/ 6 TD/TT: Roll Forming Machine Set Up Operator: us Maria Pendleton DO [facility] Final Result documented in this encounter Visit Diagnoses Not on filedocumented in this encounter Care Teams Restaurant Hourly Manager Relationship Specialty Start Date End Date Sarah Lopez DO [address] [place] [address] Referring Physician Emergency Medicine 02/18/23 documented as of this encounter
--- OUTSIDE RECORDS SUMMARY | 2025-03-25 10:31 | XMS_ITS | Encounter Summary ---
Author Organization [facility] Address [address] [place] [address] Care Team Providers Care Mold Puller Name Role Phone Sarah Lopez DO Unavailable [phone] Reason for Visit * Reason Onset Date Comments Med Refill 03/23/2025 Encounter Details Date Type Department Care Team (Late st Contact Info) Description 03/23/2025 Refill [facility] [address] [facility] [facility] [address] [place] [place] [address] Malcolm Pendleton DO [address] Mary Garcia, [facility] Mood disorder Social History Tobacco Use Types Packs/Day Years [...] encounter Miscellaneous Notes * Telephone Encounter - Maggy Sanz LPN - 03/23/2025 10:51 AM EDT Verbal orders given by Dr. Malcolm Pendleton DO to send in Effexor 37.5mg to [facility] in [place]. Maggy Fowler LPN documented in this encounter Plan of Treatment Upcoming Encounters Date Type Department Care Team ([facility] st Contact Info) Description 11/19/2025 10:50 AM EST Office Visit [facility] [address] [place] [address] Kayleigh Chung APRN-BACK TENDER PULP DRIER [address] [place] [address] documented as of this encounter Visit Diagnoses Diagnosis Mood disorder Unspecified episodic mood disorder documented in this encounter Care Teams Mold Puller Relationship Specialty Start Date End Date Sarah Lopez DO [address] [place] [address] Referring Physician Emergency Medicine 02/18/23 documented as of this encounter
--- OUTSIDE RECORDS SUMMARY | 2025-03-25 10:31 | XMS_ITS | Encounter Summary ---
Author Organization [facility] Address [address] [place] [address] Care Team Providers Care Stock Drier Tender Name Role Phone Sarah Lopez DO Unavailable [phone] Encounter Details Date Type Department Care Team (Late Contact Info) Description 09/15/2024 Abstract [facility] OB [address] [place] [phone] Malcolm Pendleton [address] Mary Garcia, [place] [address] Social History Tobacco Use Types Packs/Day Years [...] Office Visit [facility] [address] [place] [address] Kayleigh Chung, MOSQUITO SPRAYER-STONE CUTTER [address] [place] [address] documented as of this encounter Visit Diagnoses Not on filedocumented in this encounter Care Teams Stock Drier Tender Relationship Specialty Start Date End Date Sarah Lopez DO [address] [place] [address] Referring Physician Emergency Medicine 02/18/23 documented as of this encounter
--- OUTSIDE RECORDS SUMMARY | 2025-03-25 10:31 | XMS_ITS | Encounter Summary ---
Author Organization [facility] Address [address] [facility] [place] [address] Care Team Providers Care Firer Boiler Name Role Phone Sarah Lopez DO Unavailable [phone] Encounter Details Date Type Department Care Team (Late st Contact Info) Description 02/19/2024 Clinisync Result Encounter [facility] External Department Unsolicited Maria Pendleton, DO [address] [place] [address] Social History Tobacco Use Types Packs/Day Years [...] Office Visit [facility] [address] [place] [address] Kayleigh Chung, BIOINFORMATICS ENGINEER-COURTROOM REPORTER [address] [place] [address] documented as of this encounter Procedures Procedure Name Priority Date/Time Associated Diagnosis Comments US PELVIS TRANSVAGINAL 02/19/2024 12:27 PM EDT documented in this encounter Results * US PELVIS TRANSVAGINAL (02/19/2024 12:27 PM EDT) Anatomical Region Laterality Modality Other 02/19/2024 12:2 7 PM EDT Narrative 02/19/2024 12:29 [place] [address] Ultrasound Report Signed Patient: LEANDRA FONSECA MR#: [id number] : 1990 Acct:[id number] Age/Sex: 33 / F ADM Date: 02/19/24 Loc: [facility] Attending Dr: Maria Pendleton D.O. Ordering Physician: Maria Pendleton D.O. Date of Service: 02/19/24 Procedure(s): US pelvis transvaginal Accession Number(s): [id number] cc: Maria Pendleton D.O.; Physician,Non-Staff [place] [address] Patient Name: LEANDRA FONSECA MRN: [id number] date: 1990 Sex: F Assigned Patient Location: [facility] Current Patient Location: [facility] Accession/Order Number: [id number] Exam Date: 02/19/2024 11:18 Report Date: 02/19/2024 [...] Signed By: 02/19/24 1229 DD/ 1227 TD/TT: Personal Secretary: Procedure Note Radiology, Radiologist, MD - 02/19/2024 [place] [address] Ultrasound Report Signed Patient: LEANDRA FONSECA GMR#: [id number] : 1990Acct:[id number] Age/Sex: 33 / FADM Date: 02/19/24 Loc: [facility] Attending Dr: Maria Pendleton D.O. Ordering Physician: Maria Pendleton D.O. Date of Service: 02/19/24 Procedure(s): US pelvis transvaginal Accession Number(s): [id number] cc: Maria Pendleton D.O.; Physician,Non-Staff Kacey The [place] [id number] Patient Name: LEANDRA FONSECA MRN: [id number] date: 1990 Sex: F Assigned Patient Location: [facility] Current Patient Location: [facility] Accession/Order Number: [id number] Exam Date: 02/19/2024 11:18 Report Date: 02/19/2024 [...] M.D. Signed By:02/19/24 1229 DD/ 1227 TD/TT: Personal Secretary: us Maria Pendleton DO [facility] Final Result documented in this encounter Visit Diagnoses Not on filedocumented in this encounter Care Teams Firer Boiler Relationship Specialty Start Date End Date Sarah Lopez DO [address] [place] [address] Referring Physician Emergency Medicine 02/18/23 documented as of this encounter
[2025-03-25] MEDS: 0.9 % SODIUM CHLORIDE 1,000 ML 1000 ML IV (11:29)
[2025-03-25 11:31] LABS: Hematocrit 31.9 % (36.0-48.0); Hemoglobin 10.0 g/dL (12.0-16.0); Immature Granulocytes Abs Auto 0.03 10^3/uL (0.00-0.03); Immature Granulocytes Pct Auto 0.4 % (0.0-0.5); Lymphocytes Absolute Auto 1.0 10^3/uL (1.2-3.8); Mean Corpuscular HGB Conc 31.3 g/dL (29.9-35.2); Mean Corpuscular Hemoglobin 24.0 pg (26.7-34.0); Mean Corpuscular Volume 76.5 fL (81.0-99.0); Platelet Count 152 10^3/uL (150-450); Red Blood Count 4.17 10^6/uL (4.20-5.40); White Blood Count 7.8 10^3/uL (4.0-11.0)
[2025-03-25] MEDS: CITRIC ACID/SODIUM CITRATE 30 ML SOLUTION ORACIT SHOHL'S SOLN PO (12:15)
[2025-03-25] MEDS: CEFAZOLIN SODIUM/DEXTROSE,ISO 2 GM/50 ML PIGGYBACK IV (12:15)
[2025-03-25] MEDS: FAMOTIDINE/PF 20 MG/2 ML VIAL IV (12:15)
[2025-03-25] MEDS: METOCLOPRAMIDE HCL 10 MG/2 ML VIAL IVP (12:15)
[2025-03-25 12:21] LABS: Cannabinoid Screen Urine NEGATIVE (NEGATIVE); Methamphetamines Screen Urine NEGATIVE (NEGATIVE); Tricyclic Antidepressant Urine NEGATIVE (NEGATIVE)
--- NOTE | 2025-03-25 13:27 | P.ON_ITS ---
Brief Operative Note Date of procedure: 03/25/25 Pre-op diagnosis general: iup at term gestation, previous c/s, desires permanent sterilization Post-op diagnosis: same as pre-op Procedure: NAME OF PROCEDURE: [ section with bilateral salpingectomy ] PROCEDURE: Patient was taken back to the Operating Room where she was given a spinal anesthesia with Duramorph without difficulty. She was prepped and draped in the normal sterile fashion. A Pfannenstiel skin incision was then made 2?cm above the symphysis pubis and carried down to underlying rectus fascia using a Bovie. The fascia was incised in the midline and extended laterally using Beckman scissors. Two Tien clamps were placed on the superior aspect of the fascia and dissected off the underlying rectus muscles. The same was performed on the inferior aspect as well. The muscles were then in the midline. Peritoneum was identified and entered bluntly. The peritoneum was then extended superiorly and inferiorly with good visualization of the bladder. The bladder blade was inserted. Vesicouterine peritoneum was identified, tented up, and entered with Metzenbaum scissors. A bladder flap was then created digitally. The bladder blade was reinserted. A low transverse incision was made on the patient's uterus and extended laterally digitally. The infant was then delivered atraumatically after the bladder blade was removed in the cephalic position. The cord was clamped and cut. Cord blood was obtained. The was handed off to awaiting team. The patient's placenta was spontaneously delivered. The uterus was then exteriorized. The uterus was cleared of all clots and debris. The bladder blade was reinserted. The patient's uterine incision was closed using #0 Vicryl in a running lock fashion. Excellent hemostasis was assured.? The rt tube was identified and grasped with babock, the ligasure was used to transect and ligate the tube in its entirity, this was done on the contralateral side as well. The uterus was then returned to the patient's abdomen. The patient's abdomen was copiously irrigated using warm saline. Peritoneal gutters were cleared of all clots and debris. Again excellent hemostasis was assured. The patient's fascia was closed using #0 Vicryl in a running fashion. The patient's skin was closed using 4-0 Vicryl subcuticularly. The patient tolerated the procedure well. Sponge, lap, and needle counts were correct x2. The patient was taken to the Recovery Room in stable condition. Anesthesia: spinal Surgeon: Malcolm Pendleton Multi Spindle Operator: Lona Seth Estimated blood loss (mL): 575 Pathology: other (tubes) Condition: stable Disposition: PACU Urinary Catheter Management Urinary Catheter Management Urethral: Cath placed during this visit: yes Urethral indwelling: No Insertion date: 03/25/25 Insertion time: 12:35
--- NOTE | 2025-03-25 13:28 | P.OBPRC_ITS ---
Procedure Pre-op/Post-op diagnoses: Pre-Op/Post-Op Diagnoses Operation Date: 03/25/25 12:30 <No data on this case meets the specified criteria> Procedure: Procedures Operation Date: 03/25/25 12:30 Actual Procedure Side Surgeon p Repeat ; Bilateral Salpingectomy Not Applicable Malcolm Pendleton DO Director Of Materials: Lona Seth Estimated blood loss (mL): 575 Disposition: PACU Anesthesia type: Spinal
[2025-03-25] MEDS: KETOROLAC TROMETHAMINE 30 MG/ML VIAL IVP (18:46)
[2025-03-25] MEDS: CLINDAMYCIN PHOSPHATE/D5W 900 MG/50 ML PREMIX 100 MG IV (19:41)
[2025-03-26] MEDS: KETOROLAC TROMETHAMINE 30 MG/ML VIAL IVP ×4 (01:07→19:32)
[2025-03-26 01:12] VITALS: BP 125/77; TEMP 36.6
[2025-03-26] MEDS: ENOXAPARIN SODIUM 40 MG/0.4 ML SYRINGE SUBQ (01:36)
[2025-03-26 06:28] LABS: Hematocrit 29.5 % (36.0-48.0); Hemoglobin 9.2 g/dL (12.0-16.0); Immature Granulocytes Abs Auto 0.06 10^3/uL (0.00-0.03); Immature Granulocytes Pct Auto 0.4 % (0.0-0.5); Lymphocytes Absolute Auto 0.9 10^3/uL (1.2-3.8); Mean Corpuscular HGB Conc 31.2 g/dL (29.9-35.2); Mean Corpuscular Hemoglobin 23.8 pg (26.7-34.0); Mean Corpuscular Volume 76.2 fL (81.0-99.0); Platelet Count 160 10^3/uL (150-450); Red Blood Count 3.87 10^6/uL (4.20-5.40); White Blood Count 15.2 10^3/uL (4.0-11.0)
--- NOTE | 2025-03-26 06:32 | P.OBPN_ITS ---
OB - PN: Subj Subjective Patient comments: no complaints and pain well controlled [place] status: doing well Exam Constitutional Vital Signs, click to edit/add: Last Vital Signs Temp 97.9 F 03/26/25 01:12 Pulse 99 H 03/25/25 16:16 Resp 16 03/26/25 01:15 BP 125/77 03/26/25 01:12 Pulse Ox 99 03/25/25 16:40 O2 Del Method Room Air 03/26/25 01:15 Documenting provider has reviewed patient's vital signs: yes Common normals: no apparent distress Respiratory Common normals: clear to auscultation bilaterally Cardio Common normals: regular rate and regular rhythm GI Common normals: Normal to inspection, nondistended, normoactive bowel sounds present Extremity Common normals: no clubbing, cyanosis or edema Results Labs Labs: Short CBC 03/25/25 03/26/25 Range/Units 11:05 06:21 WBC 7.8 15.2 H (4.0-11.0) 10^3/uL Hgb 10.0 L 9.2 L (12.0-16.0) g/dL Hct 31.9 L 29.5 L (36.0-48.0) % Plt Count 152 160 (150-450) 10^3/uL Urinary Catheter Management Urinary Catheter Management Urethral: Cath placed during this visit: yes Urethral indwelling: No Insertion date: 03/25/25 Insertion time: 12:35 OB - PN: A/P Plan - day: 1 Plan: routine postop care Time Spent with Patient Time: Total time spent is greater than 50% in coordination of care (as documented) at patient's floor/unit and/or counseling patient: Total time spent with greater than 50% in coordination of care (as documented) at patient's floor/unit and/or counseling patient: less than 15 minutes
[2025-03-26 09:13] VITALS: BP 136/71; TEMP 36.6
[2025-03-26 09:14] VITALS: O2SAT 100
[2025-03-26] MEDS: VENLAFAXINE HCL 37.5 MG TABLET PO (09:17)
[2025-03-26] MEDS: VALACYCLOVIR HCL 500 MG TABLET PO ×2 (09:17→22:06)
[2025-03-26] MEDS: DOCUSATE SODIUM 100 MG CAPSULE PO ×2 (09:18→22:07)
[2025-03-26] MEDS: OXYCODONE HCL/ACETAMINOPHEN 5MG/325MG 2 TAB PO (10:54)
[2025-03-26 17:48] VITALS: BP 122/80; PULSE 82; O2SAT 100
[2025-03-26] MEDS: OXYCODONE HCL/ACETAMINOPHEN 5MG/325MG 1 TAB PO (22:06)
[2025-03-26 22:08] VITALS: BP 115/56; PULSE 63
[2025-03-27] VITALS (7 sets, daily range): BP systolic 122–140; BP diastolic 64–75; PULSE 66–86; TEMP 36.6–36.8
[2025-03-27] MEDS: KETOROLAC TROMETHAMINE 30 MG/ML VIAL IVP (01:12)
[2025-03-27] MEDS: ENOXAPARIN SODIUM 40 MG/0.4 ML SYRINGE SUBQ (01:12)
[2025-03-27] MEDS: OXYCODONE HCL/ACETAMINOPHEN 5MG/325MG 1 TAB PO (06:18)
[2025-03-27] MEDS: VALACYCLOVIR HCL 500 MG TABLET PO (08:33)
[2025-03-27] MEDS: IBUPROFEN 400 MG TABLET 800 MG PO ×2 (08:33→16:55)
[2025-03-27] MEDS: VENLAFAXINE HCL ER 37.5 MG CAPSULE PO (08:33)
[2025-03-27] MEDS: DOCUSATE SODIUM 100 MG CAPSULE PO ×2 (08:34→19:37)
--- NOTE | 2025-03-27 10:18 | PM.OBPN ---
OB - PN: Subj Subjective Patient comments: no complaints and pain well controlled [place] status: doing well Exam Constitutional Vital Signs, click to edit/add: Last Vital Signs Temp 97.8 F 03/26/25 09:13 Pulse 86 03/27/25 08:36 Resp 20 03/27/25 01:20 BP 137/64 03/27/25 08:36 Pulse Ox 100 03/26/25 17:48 O2 Del Method Room Air 03/27/25 01:20 Documenting provider has reviewed patient's vital signs: yes Common normals: no apparent distress Respiratory Common normals: normal respiratory effort and clear to auscultation bilaterally Cardio Common normals: regular rate and regular rhythm GI Common normals: Normal to inspection, nondistended, normoactive bowel sounds present Extremity Common normals: no clubbing, cyanosis or edema and no calf tenderness Urinary Catheter Management Urinary Catheter Management Urethral: Cath placed during this visit: yes Urethral indwelling: No Insertion date: 03/25/25 Insertion time: 12:35 2-way Urethral: Cath placed during this visit: yes, but has since been removed by the nurse Removal date: 03/26/25 Removal time: 11:00 OB - PN: A/P Plan - day: 2 Plan: routine postop care, discharge home and follow up 6 weeks Time Spent with Patient Time: Total time spent is greater than 50% in coordination of care (as documented) at patient's floor/unit and/or counseling patient: Total time spent with greater than 50% in coordination of care (as documented) at patient's floor/unit and/or counseling patient: less than 15 minutes
[2025-03-27] MEDS: OXYCODONE HCL/ACETAMINOPHEN 5MG/325MG 2 TAB PO ×2 (13:12→19:36)
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
[2025-03-28] MEDS: OXYCODONE HCL/ACETAMINOPHEN 5MG/325MG 2 TAB PO (00:22)
[2025-03-28 02:27] VITALS: BP 120/75; PULSE 72; TEMP 36.4
[2025-03-28] MEDS: ENOXAPARIN SODIUM 40 MG/0.4 ML SYRINGE SUBQ (02:30)
[2025-03-28] MEDS: IBUPROFEN 400 MG TABLET 800 MG PO ×2 (02:30→11:57)
[2025-03-28 08:15] VITALS: BP 142/76; PULSE 75; TEMP 36.7; O2SAT 100
[2025-03-28 08:28] VITALS: BP 142/76
[2025-03-28] MEDS: VENLAFAXINE HCL ER 37.5 MG CAPSULE PO (08:28)
[2025-03-28] MEDS: VALACYCLOVIR HCL 500 MG TABLET PO (08:28)
[2025-03-28] MEDS: DOCUSATE SODIUM 100 MG CAPSULE PO (08:28)
[2025-03-28] MEDS: OXYCODONE HCL/ACETAMINOPHEN 5MG/325MG 1 TAB PO (08:29)
--- NOTE | 2025-03-28 13:17 | PM.OBPN ---
OB - PN: Subj Subjective Patient comments: no complaints and pain well controlled [place] status: doing well Exam Constitutional Vital Signs, click to edit/add: Last Vital Signs Temp 98.0 F 03/28/25 08:15 Pulse 75 03/28/25 08:15 Resp 18 03/28/25 08:15 BP 142/76 H 03/28/25 08:28 Pulse Ox 100 03/28/25 08:15 O2 Del Method Room Air 03/28/25 08:15 Documenting provider has reviewed patient's vital signs: yes Common normals: no apparent distress Respiratory Common normals: normal respiratory effort and clear to auscultation bilaterally Cardio Common normals: regular rate and regular rhythm GI Common normals: Normal to inspection, nondistended, normoactive bowel sounds present Extremity Common normals: no clubbing, cyanosis or edema and no calf tenderness Urinary Catheter Management Urinary Catheter Management Urethral: Cath placed during this visit: yes Urethral indwelling: No Insertion date: 03/25/25 Insertion time: 12:35 2-way Urethral: Cath placed during this visit: yes, but has since been removed by the nurse Removal date: 03/26/25 Removal time: 11:00 OB - PN: A/P Plan - day: 3 Plan: routine postop care, discharge home and other (fu 1wk) Time Spent with Patient Time: Total time spent is greater than 50% in coordination of care (as documented) at patient's floor/unit and/or counseling patient: Total time spent with greater than 50% in coordination of care (as documented) at patient's floor/unit and/or counseling patient: less than 15 minutes
== END 2025-03-28 15:40 | disposition home or self-care (01) | DRG 785 ==
PROVIDERS: Admitting Provider Obstetrics & Gynecology; Visit Provider Obstetrics & Gynecology
PROC: 10D00Z1 Extraction of Products of Conception, Low, Open Approach (ICD-10-PCS; CPT 59514; principal; 2025-03-25 12:30)
DX: O34.211 Maternal care for low transverse scar from previous cesarean delivery (principal); Z37.0 Single live birth; Z86.16 Personal history of COVID-19; O99.284 Endocrine, nutritional and metabolic diseases complicating childbirth; E05.90 Thyrotoxicosis, unspecified without thyrotoxic crisis or storm; Z3A.38 38 weeks gestation of pregnancy; Z30.2 Encounter for sterilization
CPT/HCPCS: 36415; 51702; 64488; 80307; 85025; 86850; 86900; 86901; 88302; 94667; 94668; J0131; J0690; J0736; J1100; J1650; J1885; J2274; J2405; J2590; J2765; J3490

== ENCOUNTER 2025-05-05 08:38 | Emergency (ER) | payer OTHER, MEDICAID, SELFPAY ==
--- OUTSIDE RECORDS SUMMARY | 2022-11-20 08:27 | XMS_ITS | Continuity of Care Document ---
Author Organization [facility] Address [address] [place] [address] Phone Care Team Providers Care Director Intelligence Analysis Programs Name Role Phone Dawson Hernandez Unavailable Unavailable [...] Diagnoses Date Provider Providers Copied on Encounter [facility], [address] [place], [place], [address], [place] tel:[phone] [facility] No Information Nov-0 3 Vida Conrad. [address] [place], [place], [address] , [place]. tel:[phone] [facility], [address] [place], [place], [address], [place] tel:[phone] [facility] No Information Elinaruchi Dawson. [address] [place], [place], [address] , [place]. tel: [phone] PREV VISIT, NEW, AGE 18-39 [facility], [address] [place], [place], [address], [place] tel:[phone] [facility] establish care (chief complaint)b irth control (chief complaint) Gynecological ExaminationOther specified contraceptive management 4 Prashanth [facility] Maggy. [address] [place], [place], [address] , [place]. tel: [phone] Family History Family Member Type Diagnosis Age [...] Insurance type Covered libertarian ID Authoriza tion(s) [facility] CI [id number] Medicaid Wrap - [facility] [place] [id number] [facility] [id number] Medicaid Wrap - [facility] [place] [id number] Social History Type Description Quantity Date Captured [...]
--- OUTSIDE RECORDS SUMMARY | 2024-11-28 05:20 | XMS_ITS ---
Author Organization [facility] Servic es Address [address] [facility] [place] [address] Care Team Providers Care Diesel Locomotive Crane Operator Name Role Phone Shanell Denson Primary Care Provider Dr. Leroy Salazar Unavailable [phone] REASON FOR VISIT new pt Encounters Encounter Location Date Provider Diagnosis [facility] Services [address] [facility] [place] [address] 11/28/2024 Leroy Salazar Plan Of Treatment No Information Progress Notes * ISAAK FONSECALEY GDOB: [birth year] (34 yo F)Acc No.[id number]:11/28/2024 Patient: LISHA MALCOLM Provider: Deb Salazar DDS :1990 A ge:34 Y S ex:Female Date:11/28/2024 Address:[facility], [address], [facility] Pcp:Shanell Denson Subjective: * Chief Complaints: * 1 . New pt. * Medical History: Objective: * Vitals: Assessment: Plan: * Treatment: * Images: * Electronic signature of Dr. Leroy Salazar , DMD on 05/05/2025 at 09:00 AM EDT Sign off status: Pending * Provider: Deb Salazar DDS Date: 11/28/2024 Generated for Printi ng/Faxing/eTransmitting on: 05/05/2025 09:00 AM EDT
--- OUTSIDE RECORDS SUMMARY | 2025-04-15 07:30 | XMS_ITS ---
[facility] [address] [place] [address] Care Team Providers Care Shot Peen Operator Name Role Phone Shanell Denson Primary Care Provider REASON FOR VISIT SANTA Lopez, discuss labs Encounters Encounter Location Date Provider Diagnosis [facility] [address] [place] [address] 04/15/2025 Shanell Denson Plan Of Treatment No Information Progress Notes * LISHA FONSECA GDOB: [birth year] (34 yo F)Acc No.[id number]:04/15/2025 Progress Notes Patient: ISAAK MALCOLMLEY Moe Provider: Carolynn Denson :1990 A ge:34 Y S ex:Female Date:04/15/2025 Address:[address], [place] [id number] Subjective: * Chief Complaints: * 1 . SANTA Lopez, discuss labs. * Medical History: Objective: * Vitals: Assessment: Plan: * Treatment: * Images: * Electronic signature of Rasheed Denson NP on 05/05/2025 at 09:00 AM EDT Sign off status: Pending * Provider: Carolynn Denson Date: 0 04/15/2025 Generated for Damon ng/Falatosha/eTransmitting on: 05/05/2025 09:00 AM EDT
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
[2025-05-05 08:42] VITALS: BP 128/78; PULSE 84; TEMP 36.6; O2SAT 97; BMI 30.8
--- OUTSIDE RECORDS SUMMARY | 2025-05-05 09:00 | XMS_ITS | Clinical Summary ---
Author Organization [facility] Address [address], [address] [place] [address] Care Team Providers Care Advertising Account Manager Name Role Phone Unavailable Primary Care Provider [...] Overview (01/19/2016): 01/19/16: EPDS 16, start 25mg ZolRuchi lee to meet with patient and SW/Spiritual care [...] Plan of Treatment Not on file Insurance [facility] [place] Advance Directives * Full Code (Latest Code Status on File) Date Activated Date Inactivated Comments 01/06/2016 3:26 PM 01/10/2016 9:07 PM * Full Code Date Activated Date Inactivated Comments 01/06/2016 12:49 PM 01/06/2016 3:26 PM * Full Code Date Activated Date Inactivated Comments 01/05/2016 8:33 PM 01/06/2016 12:49 PM
--- OUTSIDE RECORDS SUMMARY | 2025-05-05 09:00 | XMS_ITS | Encounter Summary ---
Author Organization [facility] Address [address] [place] [address] Phone Care Team Providers Care Lidar Scientist Name Role Phone Yudelka Lopez Primary Care Provider + Encounter Details Date Type Department Care Team (Late st Contact Info) Description 03/31/[address] [facility] [address] [place] [address] Conversion, Onbase Social History Tobacco Use Types [...] on filedocumented in this encounter Care Teams Lidar Scientist Relationship Specialty Start Date End Date Yudelka Lopez APRN-CNP [address] [place] [address] PCP - General 01/20/23 documented as of this encounter
--- OUTSIDE RECORDS SUMMARY | 2025-05-05 09:00 | XMS_ITS | Encounter Summary ---
Author Organization [facility] Address [address] [place] [address] Care Team Providers Care Manager Financial Reporting Name Role Phone Sarah Lopez DO Unavailable [phone] Unallocated, Noms Provider Primary Care Provi jung Encounter Details Date Type Department Care Team (Late Contact Info) Description 03/25/2025 Abstract [facility] [address] [facility] [place] [address] Malcolm Pendleton DO [address] [facility] [address], [place] [address] Social History Tobacco Use Types Packs/Day Years [...] drinks on one occasion? Monthly 07/09/2023 Comments Yes Sex and Gender Information Value Date Recorded Sex Assigned at Not on file Legal Sex Female 7:06 PM EDT Gender Identity Not on file Sexual Orientation Not on file documented as of this encounter Plan of Treatment Upcoming Encounters Date Type Department Care Team (Late st Contact Info) Description 05/13/2025 9:30 AM EDT Visit [facility] [address] [facility] [place] [address] Priscilla Warren PA [address] [place] [address] [place] [address] 11/19/2025 10:50 AM EST Office Visit [facility] [address] [facility] [address] [place] [address] Kayleigh Chung, ANGLESMITH-SASH ASSEMBLER [address] [facility] [address] [place] [address] documented as of this encounter Visit Diagnoses Not on filedocumented in this encounter Care Teams Manager Financial Reporting Relationship Specialty Start Date End Date Unallocated, Noms MD Mikey [facility] [address] [place], [place] [id number] PCP - General Family Medicine 04/20/25 Sarah Lopez DO [address] [place] [address] Referring Physician Emergency Medicine 02/18/23 documented as of this encounter
--- OUTSIDE RECORDS SUMMARY | 2025-05-05 09:00 | XMS_ITS | Clinical Summary ---
Author Organization [facility] Address [address] [place] [address] Phone Care Team Providers Care Senior Bi Developer Name Role Phone Yudelka Lpoez APRN-CANTEEN OPERATOR Primary Care Provider + Social History [...] of 1 - Stand kassi series) 1993 Hepatitis C Screening 2010 Hepatitis B Vaccines (1 of 3 - 19+ 3-dose series) 2011 Cervical Cancer Screening 2013 HPV/Cotest 2013 Pap Smear 2013 DTaP/Tdap/Td Vaccines (1 - Tdap) 2014 HPV Vaccines (1 - 3-dose sta ndard series) 2019 COVID-19 Vaccine (1 - 2023-2 5 season) [...] this topic Medical Devices Implanted Type Area Order Entry Device Identifier Shelf Expiration Date Model / Serial / Lot Mesh, Softmesh 3 X 6, Flat Case [id number] Implanted:Qty: 1 on 04/03/2022 by Sly Crocker MD MPH Mesh Abdomen DAVOL 05/14/2024 [id number] / / [id number] Description:Converted from [facility] Care Acute. Please see archived information for full log information. Care Teams Senior Bi Developer Relationship Specialty Start Date End Date Yudelka Lopez, MIX MILL TENDER-CANTEEN OPERATOR [address] [place] [address] PCP - General 01/20/23
--- OUTSIDE RECORDS SUMMARY | 2025-05-05 09:00 | XMS_ITS | Clinical Summary ---
Author Organization [facility] Address [address] [place] [address] Care Team Providers Care Metal Tile Lather Name Role Phone Unavailable Primary Care Provider [...] 3-dose series) 06/13 Cervical Cancer Screening 2013 HPV Vaccine (1 - 3-dose SCDM series) 2019 Influenza Vaccine (#1) 2025 DTaP,Tdap,Td Vaccine (2 - Td or Tdap) 01/09/2026 Insurance [id number] [place]
--- OUTSIDE RECORDS SUMMARY | 2025-05-05 09:00 | XMS_ITS | Encounter Summary ---
Author Organization [facility] Address [address] [address] Care Team Providers Care Gear Hobber Set Up Operator Name Role Phone Sarah Lopez DO Unavailable [phone] Unallocated, Noms Provider Primary Care Provi jung Encounter Details Date Type Department Care Team (Late Contact Info) Description 03/30/2025 Abstract [facility] [address] [facility] [place] [address] Malcolm Pendleton DO [address] [facility] [address], [place] [address] Social History Tobacco Use Types Packs/Day Years [...] 9:30 AM EDT Visit [facility] [address] [facility] [place] [address] Priscilla Warren PA [address] [place] [address] [place] [address] 11/19/2025 10:50 AM EST Office Visit [facility] [address] [facility] [address] [place] [address] Kayleigh Chung, FORGER HELPER-BALLET PROFESSOR [address] [facility] [address] [place] [address] documented as of this encounter Visit Diagnoses Not on filedocumented in this encounter Care Teams Gear Hobber Set Up Operator Relationship Specialty Start Date End Date Unallocated, Noms MD Mikey [facility] [address] [place], [place] [id number] PCP - General Family Medicine 04/20/25 Sarah Lopez DO [address] [place] [address] Referring Physician Emergency Medicine 02/18/23 documented as of this encounter
--- OUTSIDE RECORDS SUMMARY | 2025-05-05 09:01 | XMS_ITS | Encounter Summary ---
Author Organization [facility] Address [address] [place] [address] Care Team Providers Care Tax Examiner Name Role Phone Sarah Lopez DO Unavailable [phone] Unallocated, Noms Provider Primary Care Provi jung Encounter Details Date Type Department Care Team (Late Contact Info) Description 12/17/2024 Abstract [facility] [address] [place] [address] Malcolm Pendleton DO [address] [facility] [address] Garcia, [place] [address] Social History Tobacco Use Types Packs/Day Years [...] 9:30 AM EDT Visit [facility] [address] [place] [address] Priscilla Warren PA [address] [place] [address] [place] [address] 11/19/2025 10:50 AM EST Office Visit [facility] [address] [facility] [address] [place] [address] Kayleigh Chung, BUSINESS INTELLIGENCE DEVELOPER-PRODUCE SHIPPER [address] [facility] [address] [place] [address] documented as of this encounter Visit Diagnoses Not on filedocumented in this encounter Care Teams Tax Examiner Relationship Specialty Start Date End Date Unallocated, Noms MD Mikey [facility] [address] [place], [place] [id number] PCP - General Family Medicine 04/20/25 Sarah Lopez DO [address] [place] [address] Referring Physician Emergency Medicine 02/18/23 documented as of this encounter
--- OUTSIDE RECORDS SUMMARY | 2025-05-05 09:01 | XMS_ITS | Encounter Summary ---
Author Organization [facility] Address [address] [place] [address] Care Team Providers Care Bicycle Courier Name Role Phone Sarah Lopez DO Unavailable [phone] Unallocated, Noms Provider Primary Care Provi jung Encounter Details Date Type Department Care Team (Late Contact Info) Description 03/15/2025 Abstract [facility] [address] [facility] [place] [address] Malcolm Pendleton DO [address] [facility] [address], [place] [address] Social History Tobacco Use Types Packs/Day Years [...] 9:30 AM EDT Visit [facility] [address] [facility] [place] [address] Priscilla Warren PA [address] [place] [address] [place] [address] 11/19/2025 10:50 AM EST Office Visit [facility] [address] [facility] [address] [place] [address] Kayleigh Chung, MASTER DYER-REHABILITATION INSPECTOR [address] [facility] [address] [place] [address] documented as of this encounter Visit Diagnoses Not on filedocumented in this encounter Care Teams Bicycle Courier Relationship Specialty Start Date End Date Unallocated, Noms MD Mikey [facility] [address] [place], [place] [id number] PCP - General Family Medicine 04/20/25 Sarah Lopez DO [address] [place] [address] Referring Physician Emergency Medicine 02/18/23 documented as of this encounter
--- OUTSIDE RECORDS SUMMARY | 2025-05-05 09:01 | XMS_ITS | Encounter Summary ---
Author Organization [facility] Address [id number] [address] [place] [address] Care Team Providers Care Etiologist Name Role Phone No Pcp, No Pcp Primary Care Provider Unavailabl e Encounter Details Date Type Department Care Team (Late st Contact Info) Description 12/01/2024 Orders Only Maternal- Medicine at [facility] [address] [place] [id number] Natalie Díaz, RN Choroid plexus cyst of [...] 1 documented in this encounter Care Teams Etiologist Relationship Specialty Start Date End Date No Pcp, [place] [address] PCP - General Family Medicine 02/21/24 documented as of this encounter
--- OUTSIDE RECORDS SUMMARY | 2025-05-05 09:01 | XMS_ITS | Encounter Summary ---
Author Organization [facility] Address [address] [place] [address] Care Team Providers Care Scaffold Setter Name Role Phone Sarah Lopez DO Unavailable [phone] Unallocated, Noms Provider Primary Care Provi jung Encounter Details Date Type Department Care Team (Late st Contact Info) Description 01/08/2025 Results Follow-Up [facility]UFTA Garcia [facility] [address] [facility] [place] [address] Suze Lopez LPN [address] [place] [address] ALL CBC WITH AUTO DIFF, GLUCOSE 1 HOUR Social History Tobacco Use Types Packs/Day Years [...] Description 05/13/2025 9:30 AM EDT Visit SHAGUFTA Garcia O[facility] [address] [facility] [place] [address] Priscilla Warren PA [address] [place] [address] 11/19/2025 10:50 AM EST Office Visit [facility] [address] [place] [address] Kayleigh Chung APRN-HAIR COLORIST [address] [place] [address] documented as of this encounter Visit Diagnoses Not on filedocumented in this encounter Care Teams Scaffold Setter Relationship Specialty Start Date End Date Unallocated, Nomkenisha Jensen MD [address] [place] [address] PCP - General Family Medicine 04/20/25 Sarah Lopez DO [address] [place] [address] Referring Physician Emergency Medicine 02/18/23 documented as of this encounter
--- OUTSIDE RECORDS SUMMARY | 2025-05-05 09:01 | XMS_ITS | Encounter Summary ---
Author Organization [facility] Address [address] [place] [address] Care Team Providers Care Dental Practice Manager Name Role Phone Sarah Lopez DO Unavailable [phone] Unallocated, Noms Provider Primary Care Provi jung Encounter Details Date Type Department Care Team (Late Contact Info) Description 01/14/2025 Abstract [facility] [address] [facility] [place] [address] Malcolm Pendleton DO [address] [facility] [address] Mary Garcia, [place] [address] Social History Tobacco Use Types Packs/Day Years [...] 9:30 AM EDT Visit [facility] [address] [facility] [place] [address] Priscilla Warren PA [address] [place] [address] [place] [address] 11/19/2025 10:50 AM EST Office Visit [facility] [address] [facility] [address] [place] [address] Kayleigh Chung, MELT DOWN FURNACE OPERATOR-MECHANICAL DOOR REPAIRER [address] [facility] [address] [place] [address] documented as of this encounter Visit Diagnoses Not on filedocumented in this encounter Care Teams Dental Practice Manager Relationship Specialty Start Date End Date Unallocated, Noms MD Mikey [facility] [address] [place], [place] [phone] PCP - General Family Medicine 04/20/25 Sarah Lopez DO [address] [place] [address] Referring Physician Emergency Medicine 02/18/23 documented as of this encounter
--- OUTSIDE RECORDS SUMMARY | 2025-05-05 09:01 | XMS_ITS | Clinical Summary ---
Author Organization [facility] Address [address] [place] [address] Care Team Providers Care Trimming Cutter Machine Name Role Phone Sarah Lopez DO Unavailable [phone] Unallocated, Noms Provider MD Primary Care Provi jung Allergies Active Allergy Reactions Criticality Noted Date Comments Cefdinir 08/06/2024 Other Reaction(s): Unknown Reaction Labetalol Other,Shortness of breath,Unknown High 02/07/2023 Other Reaction(s): Dizziness, loopiness, burning sensation in chest Other Reaction(s): Difficulty Breathing Labetalol Hcl Hives Low 02/18/2023 Methimazole 03/11/2023 Other Reaction(s): throat closing Other Reaction(s): anaphylaxis Medications valACYclovir (Valtrex) 500 MG tabletIndicatio ns:HSV (herpes simplex virus) infection Take 1 tablet (500 mg) by mouth Daily 30 tablet 11 12/30/2024 Active venlafaxine XR (Effexor XR) 75 MG 24 hr capsuleIndicati ons: depression Take 1 capsule (75 mg) by mouth Daily Do not crush or chew. 30 capsule 11 04/01/2025 6 Active Active Problems Problem Noted Date Diagnosed Date Mood disorder 03/23/2025 Resolved Problems Problem Noted Date Diagnosed Date Resolved Date 10 weeks gestation of ([facility]) 09/11/2024 03/25/2025 First trimester ([facility]) 09/11/2024 03/25/2025 Encounters Date Type Department Care Team Description 04/20/2025 3:10 PM EDT Office Visit [facility] [address] [place] [address] Gabino Dodd DPM Venous insufficiency (Primary Dx) 04/20/2025 Bamboo flowsheet [facility] [place] [facility] [address] [place] [address] Gabino Dodd DPM 04/01/2025 9:50 AM EDT Office Visit [facility] PH[facility] [address] [place] [address] Priscilla Warren PA Status post section; depression 04/01/2025 Bamboo flowsheet [facility] [address] [place] [address] Priscilla Warren PA 03/30/2025 Abstract [facility] [address] [place] [address] Maria Pendleton, DO 03/26/2025 Clinisync Result Encounter NOMS External Department Unsolicited Maria Pendleton, DO 03/25/2025 Abstract [facility] [address] [place] [address] Maria Pendleton, DO 03/25/2025 Clinisync Result Encounter NOMS External Department Unsolicited Maria Pendleton, DO 03/23/2025 Refill [facility] [address] [place] [address] Maria Pendleton, DO Mood disorder 03/19/2025 Clinisync Result Encounter NOMS External Department Unsolicited Maria Pendleton, DO 03/17/2025 11:30 AM EDT Routine [facility] [address] [place] [address] Priscilla Warren PA Third trimester ([facility] 37 weeks gestation of ([facility]); HSV (herpes simplex virus) infection; Anemia, unspecified type; Alpha thalassemia silent carrier; Pre-eclampsia in third trimester ([facility]) 03/17/2025 Bamboo flowsheet [facility] [address] [facility] [place] [address] Priscilla Warren PA 03/15/2025 Abstract [facility] [address] [facility] [place] [phone] Maria Pendleton, 03/12/2025 Clinisync Result Encounter NOMS External Department Unsolicited Maria Pendleton, DO 03/10/2025 11:10 AM EDT Routine [facility] [place] [facility] [address] [facility] [place] [address] Maria Pendleton, DO Third trimester ([facility]) 03/10/2025 Bamboo flowsheet [facility] [place] [facility] [address] [facility] [place] [address] Maria Pendleton, 03/05/2025 Clinisync Result Encounter NOMS External Department Unsolicited Maria Pendleton, DO 02/26/2025 Clinisync Result Encounter NOMS External Department Unsolicited Maria Pendleton, DO 02/24/2025 11:40 AM EDT Routine [facility] [place] [facility] [address] [facility] [place] [phone] Maria Pendleton, DO 34 weeks gestation of ([facility]); Third trimester ([facility]) 02/24/2025 Bamboo flowsheet [facility] [address] [facility] [place] [phone] Maria Pendleton, 02/20/2025 Telephone [facility] [address] [facility] [place] [address] Mary Cruz MA 02/19/2025 Clinisync Result Encounter NOMS External Department Unsolicited Maria Pendleton, DO 02/16/2025 Abstract [facility] [place] [facility] [address] [facility] [place] [address] Maggy Sanz LPN 02/12/2025 Clinisync Result Encounter NOMS External Department Unsolicited Maria Pendleton, DO 02/11/2025 10:50 AM EDT Routine [facility] [address] [place] [address] Priscilla Warren PA Third trimester ([facility]); 32 weeks gestation of ([facility]); Nausea 02/11/2025 Bamboo flowsheet [facility] [address] [place] [address] Priscilla Warren PA 02/04/2025 Telephone [facility] [address] [facility] [place] [phone] Suze Lopez LPN from Last 3 Months Family History Medical [...] Never Smokeless Tobacco: Never Tobacco Cessation:Counseling Given: Yes Alcohol Use Standard Drinks/Week Comments Yes 1 [...] Sign Reading Time Taken Comments Blood Pressure 110/70 04/01/2025 9:50 AM EDT Pulse 83 03/11/2023 9:58 AM EDT Temperature 36.6 C (97.8 F) 03/11/2023 9:58 AM EDT Respiratory Rate 16 04/20/2025 2:42 PM EDT Oxygen Saturation 99% 03/11/2023 9:58 AM EDT Inhaled Oxygen Concentration - - Weight 81.2 kg (179 lb) 04/20/2025 2:42 PM EDT Height 158.8 cm (5' 2.5 ) 04/20/2025 2:42 PM EDT Body Mass Index 32.22 04/20/2025 2:42 PM EDT Plan of Treatment Upcoming Encounters Date Type Department Care Team (Late st Contact Info) Description 05/13/2025 9:30 AM EDT Visit [facility]e [facility] [address] [facility] [place] [address] Priscilla Warren PA [address] [facility] [place] [address] 11/19/2025 10:50 AM EST Office Visit [facility] [address] [place] [phone] Kayleigh Chung APRN-PRIVATE EQUITY ANALYST [address] [place] [address] Health Maintenance Due Date Last Done Comments HPV/Cotest 2022 Influenza Vaccine (#1) 2025 09/01/2021 Cervical Cancer Screening 10/14/2027 Pap Smear 10/14/2027 10/14/2024, 07/09/2023 Procedures Procedure Name Priority Date/Time Associated Diagnosis Comments ALL CBC WITH AUTO DIFF Routine 03/26/2025 6:21 AM EDT [facility] DRUG SCREEN RAPID (URINE) Routine 03/25/2025 11:40 AM EDT ALL CBC WITH AUTO DIFF Routine 03/25/2025 11:05 AM EDT US OB BPP W NON-STRESS 03/19/2025 11:40 AM EDT POCT URINALYSIS DIPSTICK Routine 03/17/2025 12:01 PM EDT Third trimester ([facility]) US OB BPP W NON-STRESS 03/12/2025 11:54 AM EDT US OB BPP W NON-STRESS 03/05/2025 12:03 PM EDT US OB BPP W NON-STRESS 02/26/2025 1:13 PM EDT POCT URINALYSIS DIPSTICK Routine 02/24/2025 12:05 PM EDT 34 weeks gestation of ([facility]) Third trimester ([facility]) US OB BPP W NON-STRESS 02/19/2025 11:29 AM EDT US OB BPP W NON-STRESS 02/12/2025 9:06 AM EDT POCT URINALYSIS DIPSTICK Routine 02/11/2025 11:00 AM EDT Third trimester ([facility]) 32 weeks gestation of ([facility]) PAP SMEAR Routine 10/14/2024 12:00 AM EST from Last 3 Months or Most Recently Relevant to Health Maintenance Results * (ABNORMAL) ALL CBC WITH AUTO DIFF (03/26/2025 6:21 AM EDT) Only the most recent of2 resultswithin the time period is included. [facility] WBC 15.2(H) 4.0 - 11.0 10 3/uL [facility] TBH RBC 3.87(L) 4.20 - 5.40 10 6/uL TBH TBH HGB 9.2(L) 12.0 - 16.0 g/dL TBH TBH HCT 29.5(L) 36.0 - 48.0 % TBH TBH MCV 76.2(L) 81.0 - 99.0 fL TBH TBH MCH 23.8(L) 26.7 - 34.0 pg TBH TBH MCHC 31.2 29.9 - 35.2 g/dL TBH TBH RDW 13.6 11.0 - 15.0 % TBH TBH PLT 160 150 - 450 10 3/uL TBH TBH MPV 13.2 9.5 - 13.5 fL [facility]H NEUTROPHILS PERCENT AUTO 86.9(H) 43.0 - 75.0 % TBH LYMPHOCYTES PERCENT AUTO 6.2(L) 20.5 - 60.0 % [facility] MONOCYTES PERCENT AUTO 6.4 1.7 - 12.0 % TBH TBH EO % 0.0(L) 0.9 - 7.0 % [facility]H BASOPHILS PERCENT AUTO 0.1(L) 0.2 - 2.0 % [facility] IMMATURE GRANULOCYTES PCT AUTO 0.4 0.0 - 0.5 % [facility] NEUTROPHILS ABSOLUTE AUTO 13.2(H) 1.4 - 6.5 10 3/uL [facility] LYMPHOCYTES ABSOLUTE AUTO 0.9(L) 1.2 - 3.8 10 3/uL [facility] MONOCYTES ABSOLUTE AUTO 1.0(H) 0.3 - 0.8 10 3/uL [facility] TBH EO # 0.0 0.0 - 0.7 10 3/uL [facility]H BASOPHILS ABSOLUTE AUTO 0.0 0.0 - 0.1 10 3/uL [facility] IMMATURE GRANULOCYTES ABS AUTO 0.06(H) 0.00 - 0.03 10 3/uL [facility] 03/26/2025 6:21 AM EDT 03/26/2025 6:24 AM EDT Narrative [facility] - 03/26/2025 6:29 AM EDT us Maria Helder DO [facility] Final Result [facility] TB * TB DRUG SCREEN RAPID (URINE) (03/25/2025 11:40 AM EDT) CANNABINOID SCREEN URINE NEGATIVE NEGATIVE TBH PHENCYCLIDINE SCREEN URINE NEGATIVE NEGATIVE TBH COCAINE SCREEN URINE NEGATIVE NEGATIVE TBH METHAMPHETAMINES SCREEN URINE NEGATIVE NEGATIVE TBH OPIATE SCREEN URINE NEGATIVE NEGATIVE TBH AMPHETAMINE SCREEN URINE NEGATIVE NEGATIVE TBH BENZODIAZEPINES SCREEN URINE NEGATIVE NEGATIVE TBH TRICYCLIC ANTIDEPRESSANT URINE NEGATIVE NEGATIVE TBH METHADONE SCREEN URINE NEGATIVE NEGATIVE TBH BARBITURATES SCREEN URINE NEGATIVE NEGATIVE TBH OXYCODONE SCREEN URINE NEGATIVE NEGATIVE TBH BUPRENORPHINE SCREEN URINE NEGATIVE NEGATIVE TBH Comment: DRUG CLASS TEST SYSTEM CUT-OFF CONCENTRATIONS ARE FOLLOWS: AMP (Amphetamine): 500 ng/mL BAR (Barbiturates): 200 ng/mL BZO (Benzodiazepines): 150 ng/mL BUP (Buprenorphine): 10 ng/mL ROOSEVELT (Cocaine): 150 ng/mL mAMP (Methamphetamine): 500 ng/mL MTD (Methadone): 200 ng/mL OPI (Opiates): 100 ng/mL OXY (Oxycodone): 100 ng/mL PCP (Phencyclidine): 25 ng/mL THC (Cannabinoids): 50 ng/mL TCA (Trycyclic Antidepressants): 300 ng/mL 03/25/2025 11:4 0 AM EDT 03/25/2025 12:02 PM EDT Narrative CL[facility] - 03/25/2025 12:21 PM EDT us Maria MARTINEZ Final Result [facility] * US OB BPP W NON-STRESS (03/19/2025 11:40 AM EDT) Only the most recent of6 resultswithin the time period is included. Anatomical Region Laterality Modality Other 03/19/2025 11:4 0 AM EDT Narrative 03/19/2025 11:42 AM EDT [address] [address] Ultrasound Report Signed Patient: LISHA VALENTIN MR#: [id number] : 1990 Acct:[id number] Age/Sex: 34 / F ADM Date: 03/19/25 Loc: [facility] 250-[address]: Maria Pendleton D.O. Ordering Physician: Maria Pendleton D.O. Date of Service: 03/19/25 Procedure(s): US OB BPP w non-stress Accession Number(s): [id number] cc: Maria Pendleton D.O.; Physician,Non-Staff [place] [address] Patient Name: LISHA VALENTIN MRN: [facility]:[id number] date: 1990 Sex: F Assigned Patient Location: [facility] Current Patient Location: [facility] Accession/Order Number: [id number] Exam Date: 03/19/2025 11:38 Report Date: 03/19/2025 [...] Miller M.D. 03/19/2025 11:40 AM Dictation Location: [place] [address] Electronically authenticated by: [id number] Y Date: 03/19/2025 11:40 Dictated By: Michell Miller M.D. Signed By: 03/19/25 1142 DD/ 1140 TD/TT: Insecticide Maker: Procedure Note Radiology, Radiologist, - 03/19/2025 [place] [id number] Ultrasound Report Signed Patient: LISHA VALENTIN GMR#: [id number] : 1990Acct:[id number] Age/Sex: 34 / FADM Date: 03/19/25 Loc: [facility] 250-[address]: Maria Pendleton D.O. Ordering Physician: Maria Pendleton D.O. Date of Service: 03/19/25 Procedure(s): US OB BPP w non-stress Accession Number(s): [id number] cc: Maria Pendleton D.O.; Physician,Non-Staff [place] [id number] Patient Name: LISHA VALENTIN MRN: [facility]:[id number] date: 1990 Sex: F Assigned Patient Location: [facility] Current Patient Location: [facility] Accession/Order Number: [id number] Exam Date: 03/19/2025 11:38 Report Date: 03/19/2025 [...] Miller M.D. 03/19/2025 11:40 AM Dictation Location: [place] [address] Electronically authenticated by: [id number] Y Date: 1:40 Dictated By: Michell Miller M.D. Signed By:03/19/25 1142 DD/ 1140 TD/TT: Insecticide Maker: Maria Helder DO [facility] IMAGING Final Result * (ABNORMAL) POCT urinalysis dipstick manually resulted (03/17/2025 12:01 PM EDT) Only the most recent of3 [...] TEST ENTER/EDIT OR DERABLES Final Result * Pap Smear (10/14/2024 12:00 AM EST) Swab Cervical swab / Unknown Priscilla [facility] ORDERABLES Final Re sult EXTERNAL LAB from Last 3 Months or Most Recently Relevant to Health Maintenance Insurance [facility] [employer] [facility] Care Teams Trimming Cutter Machine Relationship Specialty Start Date End Date Unallocated, Noms Provider, [address] [place] [address] PCP - General Family Medicine 04/20/25 Sarah Lopez DO [address] [place] [address] Referring Physician Emergency Medicine 02/18/23
--- OUTSIDE RECORDS SUMMARY | 2025-05-05 09:01 | XMS_ITS | Encounter Summary ---
Author Organization [facility] Address [address] [place] [address] Care Team Providers Care Second Cutter Name Role Phone Sarah Lopez DO Unavailable [phone] Unallocated, Noms Provider Primary Care Provi jung Encounter Details Date Type Department Care Team (Late Contact Info) Description 11/24/2024 Abstract [facility] [address] [facility] [place] [address] Malcolm Pendleton DO [address] [facility] [address] Mary Garcia, [place] [address] Social History Tobacco Use Types Packs/Day Years [...] 9:30 AM EDT Visit [facility] [address] [facility] [place] [address] Priscilla Warren PA [address] [place] [address] [place] [address] 11/19/2025 10:50 AM EST Office Visit [facility] [address] [facility] [address] [place] [address] Kayleigh Chung, WADER BOOT TOP ASSEMBLER-FRETTED INSTRUMENT INSPECTOR [address] [facility] [address] [place] [address] documented as of this encounter Visit Diagnoses Not on filedocumented in this encounter Care Teams Second Cutter Relationship Specialty Start Date End Date Unallocated, Noms MD Mikey [facility] [address] [place], [place] [phone] PCP - General Family Medicine 04/20/25 Sarah Lopez DO [address] [place] [address] Referring Physician Emergency Medicine 02/18/23 documented as of this encounter
--- OUTSIDE RECORDS SUMMARY | 2025-05-05 09:01 | XMS_ITS | Encounter Summary ---
Author Organization [facility] Address [id number] [address] [place] [address] Care Team Providers Care Show Host/Hostess Name Role Phone No Pcp, No Pcp Primary Care Provider Unavailabl e Encounter Details Date Type Department Care Team (Late st Contact Info) Description 12/09/2024 Orders Only Maternal- Medicine at [facility] [address] [place] [phone] Natalie Díaz, RN Choroid plexus cyst of [...] MD LAB BLOOD ORDERABLES Final Re sult [email or web address] documented in this encounter Visit Diagnoses Diagnosis Choroid plexus cyst of fetus affecting care of mother, antepartum, fetus 1 documented in this encounter Care Teams Show Host/Hostess Relationship Specialty Start Date End Date No Pcp, [place] [address] PCP - General Family Medicine 02/21/24 documented as of this encounter
--- OUTSIDE RECORDS SUMMARY | 2025-05-05 09:01 | XMS_ITS | Encounter Summary ---
Author Organization [facility] Address [address] [place] [address] Care Team Providers Care Burial Needs Salesperson Name Role Phone Sarah Lopez DO Unavailable [phone] Unallocated, Noms Provider Primary Care Provi jung Encounter Details Date Type Department Care Team (Late Contact Info) Description 09/15/2024 Abstract [facility] [address] [place] [address] Malcolm Pendleton DO [address] [facility] [address] Mary Garcia, [place] [address] Social History Tobacco Use Types Packs/Day Years [...] 9:30 AM EDT Visit [facility] [address] [place] [address] Priscilla Warren PA [address] [place] [address] [place] [address] 11/19/2025 10:50 AM EST Office Visit [facility] [address] [facility] [address] [place] [address] Kayleigh Chung, MATE RELIEF-GARAGE SUPERVISOR [address] [facility] [address] [place] [address] documented as of this encounter Visit Diagnoses Not on filedocumented in this encounter Care Teams Burial Needs Salesperson Relationship Specialty Start Date End Date Unallocated, Noms MD Mikey [facility] [address] [place], [place] [phone] PCP - General Family Medicine 04/20/25 Sarah Lopez DO [address] [place] [address] Referring Physician Emergency Medicine 02/18/23 documented as of this encounter
--- OUTSIDE RECORDS SUMMARY | 2025-05-05 09:01 | XMS_ITS | Encounter Summary ---
Author Organization [facility] Address [address] [address] Care Team Providers Care Anesthesiology Physician Assistant Name Role Phone Sarah Lopez DO Unavailable [phone] Unallocated, Noms Provider Primary Care Provi jung Encounter Details Date Type Department Care Team (Late Contact Info) Description 11/21/2024 External Result Encounter [facility] [address] [place] [address] Maria Pendleton DO [address] [place], [place] [address] Social History Tobacco Use Types Packs/Day Years [...] 9:30 AM EDT Visit [facility] [address] [place] [address] Priscilla Warren PA [address] [place] [address] [place] [address] 11/19/2025 10:50 AM EST Office [facility] [address] [place] [address] Sheldon Kayleigh Rowan, GLOBAL LOGISTICS MANAGER-KLYSTROM TUBE TESTER [address] [place] [address] documented as of this encounter Procedures Procedure Name Priority Date/Time Associated Diagnosis Comments US OB 14+ WEEKS ANATOMY SCAN 11/21/2024 3:40 PM EST documented in this encounter Results * US OB 14+ weeks anatomy scan (11/21/2024 3:40 PM EST) Anatomical Region Laterality Modality Body Ultrasound 11/21/2024 3:40 PM EST Narrative 11/21/2024 3:40 PM EST THIS EXAM WAS PERFORMED AT [facility] NAME: MARIAN HUSAIN : 1990 SEX: F Accession Number: [id number] ORDERING PHYSICIAN: TOREY MONTGOMERY REFERRING PHYSICIAN: MARIA PENDLETON Coding ----- --------- Procedures 42769: Ultrasound, uterus, real time with image documentation, and maternal evaluation plus detailed anatomic examination, transabdominal approach;single or first gestation 67935: Transvaginal Ultrasound (OB) Indication ----- --------- Screening [...] 0 lb 13 oz EFW by Hadlock ([id number]) Head / Face / Neck Biometry: Cephalic index 0.73 5% Nicolaides Booth Cashier 4.4 mm CM 4.2 mm 20% Nicolaides [...] Heart / Thorax RVOT view. LVOT view. 1-acsnpx-bagbagt view. Bicaval view. Extremities / Left hand. [...] Right choroid plexus cyst is identified. Per [facility] guidelines, isolated chorioid plexus cysts (CPCs) are a normal variant of no clinical importance with no indication for follow-up ultrasound imaging or evaluation in the setting of low risk cell free DNA screening. Double right renal artery identified. Recommendations ----- --------- Please see [facility] documentation from today. The patient is scheduled in four to six week(s) to complete anatomic survey. Subsequent follow up or other follow up as clinically determined by primary OB provider unless otherwise specified by [facility]. Results forwarded to ordering provider so they can follow up with the patient as necessary. The copy-to physician of this order is MARIA Brito The ordering physician of this order is TOREY Pineda Procedure Note Radiology, Radiologist, MD - 11/21/2024 THIS EXAM WAS PERFORMED AT [facility] NAME: MARIAN HUSAIN : 1990 SEX: F Accession Number: [id number] ORDERING PHYSICIAN: TOREY MONTGOMERY REFERRING PHYSICIAN: AMRIA PENDLETON Coding ----- --------- Procedures 15859: Ultrasound, uterus, real time with imagedocumentation, and maternal evaluation plus detailed anatomic examination, transabdominalapproach;single or first gestation 36344: Transvaginal Ultrasound (OB) Indication ----- --------- Screening [...] 0 lb 13 oz EFW by Hadlock ([id number]) Head / Face / Neck Biometry: Cephalic index 0.73 5% Nicolaides Booth Cashier 4.4 mm CM 4.2 mm 20% Nicolaides [...] Heart / Thorax RVOT view. LVOT view. 9-uvnxpz-ozdkavy view. Bicavalview. Extremities / Left hand. Skeleton [...] Right choroid plexus cyst is identified. Per [facility] guidelines, isolated chorioid plexus cysts (CPCs) are a normalvariant of no clinical importance with no indication for follow-up ultrasound imaging or evaluation in the setting of lowrisk cell free DNA screening. Double right renal artery identified. Recommendations ----- --------- Please see [facility] documentation from today. The patient is scheduled in four to six week(s) to complete anatomicsurvey. Subsequent follow up or other follow up as clinically determined byprimary OB provider unless otherwise specified by [facility]. Results forwarded to ordering provider so they can follow up with thepatient as necessary. The copy-to physician of this order is MARIA Brito The ordering physician of this order is TOREY Pineda us Maria Pendleton DO IMG OB US PROCEDURES Final Resul t documented in this encounter Visit Diagnoses Not on filedocumented in this encounter Care Teams Anesthesiology Physician Assistant Relationship Specialty Start Date End Date Unallocated, Noms Provider, [address] [place], [place] [address] PCP - General Family Medicine 04/20/25 Sarah Lopez DO [address] [place] [address] Referring Physician Emergency Medicine 02/18/23 documented as of this encounter
--- OUTSIDE RECORDS SUMMARY | 2025-05-05 09:01 | XMS_ITS | Encounter Summary ---
Author Organization [facility] Address [address] [address] Care Team Providers Care Plunger Shovel Operator Name Role Phone Sarah Lopez DO Unavailable [phone] Unallocated, Noms Provider Primary Care Provi jung Encounter Details Date Type Department Care Team (Late st Contact Info) Description 02/16/2025 Abstract [facility] [address] [facility] [place] [address] Maggy Sanz LPN Social History Tobacco [...] 9:30 AM EDT Visit [facility] [address] [facility] [place] [address] Priscilla Warren PA [address] [place] [address] Dr [place], [place] [address] 11/19/2025 10:50 AM EST Office Visit [facility] [address] [place] [address] Kayleigh Chung APRN-LEAD MOBILE DEVELOPER [address] [place] [address] documented as of this encounter Visit Diagnoses Not on filedocumented in this encounter Care Teams Plunger Shovel Operator Relationship Specialty Start Date End Date Unallocated, Shagufta Jensen MD [address] [place], [place] [phone] PCP - General Family Medicine 04/20/25 Sarah Lopez DO [address] [place] [address] Referring Physician Emergency Medicine 02/18/23 documented as of this encounter
--- OUTSIDE RECORDS SUMMARY | 2025-05-05 09:01 | XMS_ITS | Encounter Summary ---
Author Organization [facility] Address [address] [place] [address] Care Team Providers Care Residential Real Estate Sales Manager Name Role Phone Sarah Lopez DO Unavailable [phone] Unallocated, Noms Provider Primary Care Provi jung Encounter Details Date Type Department Care Team (Late st Contact Info) Description 01/30/2025 Abstract [facility] [address] [place] [address] Mary Cruz MA Social History Tobacco [...] 9:30 AM EDT Visit [facility] [address] [place] [address] Priscilla Warren PA [address] [place], [facility] 11/19/2025 10:50 AM EST Office Visit [facility] [address] [place] [address] Kayliegh Chung APRN-ROLLER STITCHER [address] [place] [address] documented as of this encounter Visit Diagnoses Not on filedocumented in this encounter Care Teams Residential Real Estate Sales Manager Relationship Specialty Start Date End Date Unallocated, Shagufta Jensen MD [address] [place] [address] PCP - General Family Medicine 04/20/25 Sarah Lopez DO [address] [place] [address] Referring Physician Emergency Medicine 02/18/23 documented as of this encounter
--- OUTSIDE RECORDS SUMMARY | 2025-05-05 09:01 | XMS_ITS | Encounter Summary ---
Author Organization [facility] Address [id number] [address] [place] [address] Care Team Providers Care Systems Design Engineer Name Role Phone No Pcp, No Pcp Primary Care Provider Unavailabl e Encounter Details Date Type Department Care Team (Late st Contact Info) Description 10/10/2024 Abstract Maternal- Medicine at [facility] [address] [place] [id number] Torey Barnett MD [address] [place] [address] Social History Tobacco Use Types Packs/Day Years [...] ORDERABLES Larissa l Result Performing Organization Address [facility] Co de Phone Number MANUALLY TRANSCRIBED RESULTS * Syphilis Total(Unknown Syphilis Status) (09/11/2024) Syphilis Total non- reactive MANUALLY TRANSCRIBED RESULTS us Not In System Ref Prov LAB BLOOD ORDERABLES Larissa l Result Performing Organization Address [facility] Co de Phone Number MANUALLY TRANSCRIBED RESULTS documented in this encounter Visit Diagnoses Not on filedocumented in this encounter Care Teams Systems Design Engineer Relationship Specialty Start Date End Date [place], [place] [address] PCP - General Family Medicine 02/21/24 documented as of this encounter
--- OUTSIDE RECORDS SUMMARY | 2025-05-05 09:01 | XMS_ITS | Patient Health Record ---
Author Organization [facility] Address [address] [place] [address] Care Team Providers Care Director For Beauty School Name Role Phone Shanell Denson Primary Care Provider [phone] Dr. Leroy Salazar Unavailable [phone] Yudelka Raymond Unavailable [phone] Allergies Allergen (clinical drug ingredient) Drug/Non Drug Allergy documented on EMR Reaction Allergy Type Onset Date Status labetalol Labetalol HCl shortness of breath Drug Allergy Active Results Component Value Reference Range Notes CT abdomen pelvis w con Reviewed date:07/14/2024 04:15:57 PM Interpretation: Performing Lab: Notes/Report: [facility] [place] [address] [place] [address] Scan Report Signed Patient: Lisha Fonseca MR#: [id number] : 1990 Acct:[id number] Age/Sex: 34 / F ADM Date: 07/14/24 Loc: ER Room: Type: [facility] ER Attending Dr: Copies to: DO [...] Mancera Jr., D.O.07/14/2024 2:43 PM Dictation Location: [place] [address] Transcribed By: [facility] 07/14/24 1443 Dictated By: Leroy Mancera Jr, DO 07/14/24 1438 Signed By: <Electronically signed by Leroy Mancera Jr, DO in OV> 07/14/24 1443 COVID-19 PCR Reviewed date:07/14/2024 05:15:14 PM Interpretation: Performing Lab:, [facility], [place] JESUS Notes/Report: This is a duplicate CepGift Pinpointid Xpert Xpress CoV-2/Flu/RSV Plus RNA by RT-PCR result to be used for statistical tracking purpose only. Cepheid COVID PCR Negative Negative Negative Comprehensive Metabolic Pane l Reviewed date:08/07/2024 07:53:16 AM Interpretation: Performing Lab:, [facility], [place] Notes/Report: Glucose 98 70-100 mg/dL Random Glucose [...] Reviewed date:08/07/2024 07:53:16 AM Interpretation: Performing Lab:, [facility], [place] Notes/Report: 8-12 10,000-100,000 6-8 15,000-200,000 5-6 10,000-100,000 4-5 1,000-50,000 3-4 500-10,000 2-3 100-5,000 1-2 50-500 0.2-1 5-50 (weeks) Gestational Age Range (mIU/ml) Approximate Approximate hCG HCG,Quantitative 63473.00 Complete Blood Count Auto Di ff Reviewed date:08/07/2024 07:53:16 AM Interpretation: Performing Lab:, [facility], [facility] Notes/Report: White Blood Count 7.9 [...] Reviewed date:08/07/2024 07:53:16 AM Interpretation: Performing Lab:, [facility], [address] [facility] Notes/Report: Ethanol <10 Percent Ethanol TNP COVID-19 / Flu A/B / RSV PCR Reviewed date:07/14/2024 05:15:14 PM Interpretation: Performing Lab:, [facility], [address] [facility] Notes/Report: COVID-19 Cepheid Result Negative for KELLY [...] Reviewed date:07/14/2024 05:15:14 PM Interpretation: Performing Lab:, [facility], [address], [place] Notes/Report: Name Collection Type:: Clean-Voided Midstream Color,Urine Yellow Yellow Appearance,Urine Clear Clear Specificy [place],Urine 1.030 1.001-1.030 pH,Urine 6.0 5.0-9.0 Leukocyte Esterase,Urine [...] Reviewed date:07/14/2024 05:15:14 PM Interpretation: Performing Lab:, [facility], [address] , [place] KRISTOPHER Notes/Report: For adults in ED, [...] Reviewed date:07/14/2024 05:15:14 PM Interpretation: Performing Lab:, [facility], [facility] [address] AVLittle, [facility] Notes/Report: Total Protein 7.2 6.4-8.9 g/dL Albumin [...] 11.1 6.0-15.0 Creatinine Clr Calc Pharmacy 107.14 BioFire Detected Reviewed date:04/20/2025 03:16:48 PM Interpretation: Performing Lab:, [facility], [address] [place], [place] [address]Little, [facility] Notes/Report: BioFire Detected Detected Not Detecte This is a duplicate RP2.1 COVID (PCR) result to be used for statistical tracking purpose only. Dipstick and Microscopic Reviewed date:04/20/2025 03:16:48 PM Interpretation: Performing Lab:, [facility], [address] [place], [place] [address]ES Little, [facility] Notes/Report: Name Collection Type:: Clean-Voided Midstream Color,Urine Light-Yellow Yellow Appearance,Urine Clear Clear Specificy [place],Urine 1.011 1.001-1.030 pH,Urine 6.5 5.0-9.0 Leukocyte Esterase,Urine 2+ Negative Nitrite,Urine Negative Negative Protein,Urine Negative Negative Glucose,Urine (UA) Normal Normal Ketones,Urine 3+ Negative Urobilinogen,Urine Normal Normal Bilirubin,Urine Negative Negative Occult Blood,Urine Negative Negative RBC,Urine 1-2 0-4 [HPF] WBC,Urine 1-2 0-4 [HPF] Squamous Epithelial Cell,Urine 5-9 0-2 [HPF] Bacteria,Urine 1+ None Seen Hyaline Casts,Urine None 0-8 Mucus,Urine Rare Respiratory (Upper) Panel, P CR Reviewed date:04/20/2025 03:16:48 PM Interpretation: Performing Lab:, [facility], [address], [place] Notes/Report: Adenovirus Not detected Bordetella parapertussis Not [...] H3 Blank Space ---- ------ Quick Strep Reviewed date:04/20/2025 03:16:48 PM Interpretation: Performing Lab:, [facility], [place]car[place] [address] [place], [place] Notes/Report: Streptococcus pyogenes Ag [Presence] in Throat by Rapid immunoassay Negative for Group A Strep Antigen Note 1 ---- NOTE 2 Results are those of a screening test. NOTE 3 If clinically indica delmer please order a culture. NOTE 4 ---- NOTE 5 Reference range = Negative Complete Blood Count Auto Di ff Reviewed date:04/20/2025 03:16:48 PM Interpretation: Performing Lab:, [facility], [address] , [place] Notes/Report: For adults in ED, MDW > [...] Width 20.57 0.00-20.00 % Basic Metabolic Panel Reviewed date:04/20/2025 03:16:48 PM Interpretation: Performing Lab:, [facility], [address] [place] Notes/Report: Glucose 73 70-100 mg/dL Random Glucose [...] 6.0-15.0 meq/L Creatinine Clr Calc Pharmacy 164.96 Reason For Referral No Information Social History [...] down, depressed, or hopeless More than h [facility] the days Trouble falling or staying a [...] 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 Stress is when someone feels tense, nervous, anxious, or cant sleep at night because their mind is troubled Not at all In the past year have you sp ent more than 2 nights in a row in a long-term, mcfp, alf center, or juvenile correctional facility? No Are [...] Status W/U Status Risk Notes Problem Hyperthyroidism (72284655) Hyperthyroidism (E05.90) Active confirmed Problem Thyroid nodule (048538693) Thyroid nodule (E04.1) Active confirmed Problem Iron deficiency anemia (34817983) Iron deficiency anemia, unspecified iron deficiency anemia type (D50.9) Active confirmed Problem Migraine with aura (0787627) Migraine with aura and without status migrainosus, not intractable (G43.109) Active confirmed Problem Endometriosis (566089924) Endometriosis (N80.9) Active confirmed Problem Anxiety disorder (369863773) Anxiety disorder, unspecified (F41.9) Active confirmed Encounters Encounter Location Date Provider Diagnosis [facility] [address] [place] [address] 07/18/2024 [facility] [address] [place] [address] 08/13/2024 [facility] [address] [place] [address] 04/07/2025 Leroy Martin [facility] [address] [place] [address] 12/19/2024 Leroy Salazar Encounter for dental examination [...] dentin (ICD-10 - K02.52) Plan Of Treatment No Information Insurance Providers Payer Name Payer Address Payer Phone Subscriber Number Group Number Insured Name Patient Relationship to Insured Coverage Start Date Coverage End Date [facility] [address] [place] [address] [id number] LISHA FONSECA Other 1 [employer] [place] Medicaid [address] [place] [address] [id number] LISHA FONSECA Self - patient is the insured 3 3 Wrap [facility] [address] [place] [phone] [id number] LISHA FONSECA Self - patient is the insured 3 3 Wrap [facility] Schneider [address] [place] [address] [phone] [id number] LISHA FOSNECA Self - patient is the insured 3 zDENTAL DQ [facility] CHP [place]-termed 22 [address] [place] [address] [id number] LISHA FONSECA Self - patient is the insured 2 zDental MEDICAID C[employer] after [facility] CHP-terme d 22 [address] [place] [address] [id number] LISHA FONSECA Self - patient is the insured 2 DENTAL HUMANA [address] [address] [place] [address] [id number] LISHA FONSECA Other 5 Dental Wrap [facility] [employer] [address] [place] [address] [id number] LISHA FONSECA Self - patient is the insured 5 Dental Humana DQ [address] [address] [place] [address] [id number] LISHA FONSECA Self - patient is the insured 5 Medical (General) History Medical History History ICD Code hypertension anemia Covid 19 Surgical History Surgery Date(Month/Year) section-x2 Endometrial Tumor Resection 04/03/22 Hospitalization History Reason Date(Month/Year) see surgical Child x2
--- OUTSIDE RECORDS SUMMARY | 2025-05-05 09:01 | XMS_ITS | Clinical Summary ---
Author Organization [facility] Address [id number] [address] [place] [address] Care Team Providers Care Director Prison Name Role Phone No Pcp, No Pcp [...] Team Description 02/26/2025 Telephone Maternal- Medicine at [facility] [address] [place] [address] Caroline Chavira RN 02/04/2025 Telephone Maternal Medicine [place] [address] [place] [address] Josey Valentine from Last 3 Months Family History Medical [...] 10/14/2027 10/14/2024 Medical Devices Not on file Insurance [facility] MEDICAID [employer] Care Teams Director Prison Relationship Specialty Start Date End Date No [place], [place] [address] PCP - General Family Medicine 02/21/24
--- OUTSIDE RECORDS SUMMARY | 2025-05-05 09:01 | XMS_ITS | Encounter Summary ---
Author Organization [facility] Address [address] [place] [address] Care Team Providers Care Solvent Process Extractor Operator Name Role Phone Sarah Lopez DO Unavailable [phone] Unallocated, Noms Provider Primary Care Provi jung Encounter Details Date Type Department Care Team (Late Contact Info) Description 12/16/2024 Abstract [facility] [address] [facility] [address] Malcolm Pendleton DO [address] [facility] [address] [place], [place] [address] Social History Tobacco Use Types Packs/Day Years [...] 9:30 AM EDT Visit [facility] [address] [facility] [address] Priscilla Warren PA [address] [place] [address] [place] [address] 11/19/2025 10:50 AM EST Office Visit [facility] [address] [facility] [address] [place] [address] Kayleigh Chung, BOLT SAWYER-IMPORT/EXPORT AGENT [address] [facility] [address] [place] [address] documented as of this encounter Visit Diagnoses Not on filedocumented in this encounter Care Teams Solvent Process Extractor Operator Relationship Specialty Start Date End Date Unallocated, Noms MD Mikey [facility] [address] [place], [place] [phone] PCP - General Family Medicine 04/20/25 Sarah Lopez DO [address] [place] [address] Referring Physician Emergency Medicine 02/18/23 documented as of this encounter
--- OUTSIDE RECORDS SUMMARY | 2025-05-05 09:01 | XMS_ITS | Encounter Summary ---
Author Organization [facility] Address [address] [place] [address] Care Team Providers Care Talent Recruiter Name Role Phone Sarah Lopez DO Unavailable [phone] Unallocated, Noms Provider Primary Care Provi jung Encounter Details Date Type Department Care Team (Late Contact Info) Description 01/20/2025 Abstract [facility] [address] [facility] [place] [address] Malcolm Pendleton DO [address] [facility] [address] [place], [place] [address] Social History Tobacco Use Types Packs/Day Years [...] 9:30 AM EDT Visit [facility] [address] [facility] [place] [address] Priscilla Warren PA [address] [place] [address] [place] [address] 11/19/2025 10:50 AM EST Office Visit [facility] [address] [facility] [address] [place] [address] Kayleigh Chung, PASTORAL ASSISTANT-TENANT RELATIONS COORDINATOR [address] [facility] [address] [place] [address] documented as of this encounter Visit Diagnoses Not on filedocumented in this encounter Care Teams Talent Recruiter Relationship Specialty Start Date End Date Unallocated, Noms MD Mikey [facility] [address] [place], [place] [phone] PCP - General Family Medicine 04/20/25 Sarah Lopez DO [address] [place] [address] Referring Physician Emergency Medicine 02/18/23 documented as of this encounter
--- OUTSIDE RECORDS SUMMARY | 2025-05-05 09:01 | XMS_ITS | Encounter Summary ---
Author Organization [facility] Address [address] [place] [address] Care Team Providers Care Press Setter Name Role Phone Sarah Lopez DO Unavailable [phone] Unallocated, Noms Provider Primary Care Provi jung Encounter Details Date Type Department Care Team (Late st Contact Info) Description 02/19/2024 Clinisync Result Encounter [facility] External Department Unsolicited Maria Pendleton DO [address] Garcia, [facility]11 Social History Tobacco Use Types Packs/Day [...] 9:30 AM EDT Visit [facility] 102 [facility] [place] [phone] Priscilla Warren PA [address] [facility] [address] [place], [place] [address] 11/19/2025 10:50 AM EST Office Visit [facility] [address] [place] [phone] Kayleigh Chung, STICKER HAND-INOCULATOR [address] [place] [address] documented as of this encounter Procedures Procedure Name Priority Date/Time Associated Diagnosis Comments US PELVIS TRANSVAGINAL 02/19/2024 12:27 PM EDT documented in this encounter Results * US PELVIS TRANSVAGINAL (02/19/2024 12:27 PM EDT) Anatomical Region Laterality Modality Other 02/19/2024 12:2 7 PM EDT Narrative 02/19/2024 12:29 [place] [address] Ultrasound Report Signed Patient: LISHA VALENTIN MR#: [id number] : 1990 Acct:[id number] Age/Sex: 33 / F ADM Date: 02/19/24 Loc: [facility] Attending Dr: Maria Pendleton D.O. Ordering Physician: Maria Pendleton D.O. Date of Service: 02/19/24 Procedure(s): US pelvis transvaginal Accession Number(s): [id number] cc: Maria Pendleton D.O.; Physician,Non-Staff M.DJorge The [address] [id number] Patient Name: LISHA VALENTIN MRN: [id number] date: 1990 Sex: F Assigned Patient Location: [facility] Current Patient Location: [facility] Accession/Order Number: [id number] Exam Date: 02/19/2024 11:18 Report Date: 02/19/2024 [...] Signed By: 02/19/24 1229 DD/ 1227 TD/TT: Underwater Trapper: Procedure Note Radiology, Radiologist, MD - 02/19/2024 [place] [address] Ultrasound Report Signed Patient: LISHA VALENTIN GMR#: [id number] : 1990Acct:[id number] Age/Sex: Date: 02/19/24 Loc: [facility] Attending Dr: Maria Pnedleton D.O. Ordering Physician: Maria Pendleton D.O. Date of Service: 02/19/24 Procedure(s): US pelvis transvaginal Accession Number(s): [id number] cc: Maria Pendleton D.O.; Physician,Non-Staff Kacey The [place] [id number] Patient Name: LISHA VALENTIN MRN: [id number] date: 1990 Sex: F Assigned Patient Location: [facility] Current Patient Location: [facility] Accession/Order Number: [id number] Exam Date: 02/19/2024 11:18 Report Date: 02/19/2024 [...] M.D. Signed By:02/19/24 1229 DD/ 1227 TD/TT: Underwater Trapper: us Maria Pendleton DO [facility] Final Result documented in this encounter Visit Diagnoses Not on filedocumented in this encounter Care Teams Press Setter Relationship Specialty Start Date End Date Unallocated, Noms Provider, [address] [place], [place] [id number] PCP - General Family Medicine 04/20/25 Sarah Lopez DO [address] [place] [address] Referring Physician Emergency Medicine 02/18/23 documented as of this encounter
--- OUTSIDE RECORDS SUMMARY | 2025-05-05 09:01 | XMS_ITS | Encounter Summary ---
Author Organization [facility] Address [address] [place] [address] Care Team Providers Care Flying I Instructor Name Role Phone Sarah Lopez DO Unavailable [phone] Unallocated, Noms Provider Primary Care Provi jung Encounter Details Date Type Department Care Team (Late Contact Info) Description 08/26/2024 Abstract [facility] [address] [facility] [place] [address] Malcolm Pendleton DO [address] [facility] [address] Mary Garcia, [place] [address] Social History Tobacco Use Types Packs/Day Years [...] 9:30 AM EDT Visit [facility] [address] [facility] [place] [address] Priscilla Warren PA [address] [place] [address] [place] [address] 11/19/2025 10:50 AM EST Office Visit [facility] [address] [facility] [address] [place] [address] Kayleigh Chung, RIDING SILKS CUSTODIAN-GERMINATION TESTING MANAGER [address] [facility] 350 [place] [address] documented as of this encounter Visit Diagnoses Not on filedocumented in this encounter Care Teams Flying I Instructor Relationship Specialty Start Date End Date Unallocated, Noms MD Mikey [facility] [address] [place], [place] [phone] PCP - General Family Medicine 04/20/25 Sarah Lopez DO [address] [place] [address] Referring Physician Emergency Medicine 02/18/23 documented as of this encounter
--- OUTSIDE RECORDS SUMMARY | 2025-05-05 09:01 | XMS_ITS | Encounter Summary ---
Author Organization [facility] Address [address] [place] [address] Care Team Providers Care Middle School Assistant Principal Name Role Phone Sarah Lopez DO Unavailable [phone] Unallocated, Noms Provider Primary Care Provi ujng Encounter Details Date Type Department Care Team (Late Contact Info) Description 01/27/2025 Abstract [facility] [address] [facility] [place] [address] Malcolm Pendleton DO [address] [facility] [address] Mary Garcia, [place] [address] Social History Tobacco Use Types Packs/Day Years [...] 9:30 AM EDT Visit [facility] 102 [facility] [place] [address] Priscilla Warren PA [address] [place] [address] [place] [address] 11/19/2025 10:50 AM EST Office Visit [facility] [address] [facility] [address] [place] [address] Kayleigh Chung, LICENSING SERVICES CLERK-TEACHING SUPERVISOR [address] [facility] 350 [place] [address] documented as of this encounter Visit Diagnoses Not on filedocumented in this encounter Care Teams Middle School Assistant Principal Relationship Specialty Start Date End Date Unallocated, Noms MD Mikey [facility] [address] [place], [place] [phone] PCP - General Family Medicine 04/20/25 Sarah Lopez DO [address] [place] [address] Referring Physician Emergency Medicine 02/18/23 documented as of this encounter
--- OUTSIDE RECORDS SUMMARY | 2025-05-05 09:01 | XMS_ITS | Encounter Summary ---
Author Organization [facility] Address [address] [place] [address] Care Team Providers Care Business Integration Manager Name Role Phone Sarah Lopez DO Unavailable [phone] Unallocated, Noms Provider Primary Care Provi jung Encounter Details Date Type Department Care Team (Late st Contact Info) Description 01/09/2025 Results Follow-Up [facility] [address] [facility] [place] [address] Suze Lopez LPN 102 [place] [address] ALL CBC WITH AUTO DIFF, ALL BUN, TB[facility] CREATININE, Additional followed-up results: 2 Social History Tobacco Use Types Packs/Day Years [...] [address] [facility] [place] [phone] Priscilla Warren PA [address] [facility] [place] [address] 11/19/2025 10:50 AM EST Office Visit [facility] [address] [place] [address] Kayleigh Chung APRN-PLATE INSPECTOR [address] [place] [address] documented as of this encounter Visit Diagnoses Not on filedocumented in this encounter Care Teams Business Integration Manager Relationship Specialty Start Date End Date Unallocated, Nomkenisha Jensen MD [address] [place] [address] PCP - General Family Medicine 04/20/25 Sarah Lopez DO [address] [place] [address] Referring Physician Emergency Medicine 02/18/23 documented as of this encounter
--- OUTSIDE RECORDS SUMMARY | 2025-05-05 09:01 | XMS_ITS | Encounter Summary ---
Author Organization [facility] Address [address] [place] [address] Care Team Providers Care Aircraft Captain Name Role Phone Sarah Lopez DO Unavailable [phone] Unallocated, Noms Provider Primary Care Provi jung Encounter Details Date Type Department Care Team (Late st Contact Info) Description 08/27/2024 Clinisync Result Encounter [facility] External Department Unsolicited Maria Pendleton DO [address] [place], [facility] Social History Tobacco Use Types Packs/Day Years [...] 9:30 AM EDT Visit [facility] 102 [facility] [place] [phone] Priscilla Warren PA [address] [facility] [address] [place], [facility] 11/19/2025 10:50 AM EST Office Visit [facility] [address] [place] [phone] SariahKayleigh mares, SALVAGER HELPER-CUT OFF OPERATOR SCORER [address] [place] [address] documented as of this encounter Procedures Procedure Name Priority Date/Time Associated Diagnosis Comments US OB TRANSVAGINAL 08/27/2024 4: 27 AM EST documented in this encounter Results * US OB TRANSVAGINAL (08/27/2024 4:27 AM EST) Anatomical Region Laterality Modality Other 08/27/2024 4:27 AM EST Narrative 08/27/2024 4:30 [place] [address] Ultrasound Report Signed Patient: LISHA VALENTIN MR#: [id number] : 1990 Acct:[id number] Age/Sex: 34 / F ADM Date: 08/26/24 Loc: [facility] Attending Dr: Maria Pendleton D.O. Ordering Physician: Maria Pendleton D.O. Date of Service: 08/26/24 Procedure(s): US OB transvaginal Accession Number(s): [id number] cc: Maria Pendleton D.O.; Physician,Non-Staff M.D. The [place] [id number] Patient Name: LISHA VALENTIN MRN: [id number] date: 1990 Sex: F Assigned Patient Location: [facility] Current Patient Location: Accession/Order Number: [id number] Exam Date: 08/26/2024 08:59 Report Date: 08/27/2024 [...] M.D. Signed By: 08/27/24429 DD/ 6 TD/TT: Technical Writer And Editor: Procedure Note Radiology, Radiologist, MD - 08/27/2024 [place] [address] Ultrasound Report Signed Patient: LISHA VALENTIN GMR#: [id number] : 1990Acct:[id number] Age/Sex: 34 / FADM Date: 08/26/24 Loc: [facility] Attending Dr: Maria Pendleton D.O. Ordering Physician: Maria Pendleton D.O. Date of Service: 08/26/24 Procedure(s): US OB transvaginal Accession Number(s): [id number] cc: Maria Pendleton D.O.; Physician,Non-Staff Kacey The [place] [address] Patient Name: LISHA VALENTIN MRN: [id number] date: 1990 Sex: F Assigned Patient Location: [facility] Current Patient Location: Accession/Order Number: [id number] Exam Date: 08/26/2024 08:59 Report Date: 08/27/2024 [...] Miguel M.D. Signed By:08/27/24429 DD/ 6 TD/TT: Technical Writer And Editor: us Maria Helder DO [facility] Final Result documented in this encounter Visit Diagnoses Not on filedocumented in this encounter Care Teams Aircraft Captain Relationship Specialty Start Date End Date Unallocated, Noms Provider, [address] [place] [address] PCP - General Family Medicine 04/20/25 Sarah Lopez DO [address] [place] [address] Referring Physician Emergency Medicine 02/18/23 documented as of this encounter
--- OUTSIDE RECORDS SUMMARY | 2025-05-05 09:01 | XMS_ITS | Encounter Summary ---
Author Organization [facility] Address [address] [place] [address] Care Team Providers Care Director Of Golf Name Role Phone Sarah Lopez DO Unavailable [phone] Unallocated, Noms Provider Primary Care Provi jung Encounter Details Date Type Department Care Team (Late Contact Info) Description 11/21/2024 Abstract [facility] 102 [facility] [place] [address] Malcolm Pendleton DO [address] [facility] [address] Mary [address], [place] [address] Social History Tobacco Use Types Packs/Day Years [...] 9:30 AM EDT Visit [facility] 102 [facility] [place] [address] Priscilla Warren PA [address] [place] [address] [place] [address] 11/19/2025 10:50 AM EST Office Visit [facility] [address] [facility] [address] [place] [address] Kayleigh Chung, CANTEEN MANAGER-AIR INTELLIGENCE OFFICER [address] [facility] 350 [place] [address] documented as of this encounter Visit Diagnoses Not on filedocumented in this encounter Care Teams Director Of Golf Relationship Specialty Start Date End Date Unallocated, Noms MD Mikey [facility] [address] [place], [place] [address] PCP - General Family Medicine 04/20/25 Sarah Lopez DO [address] [place] [address] Referring Physician Emergency Medicine 02/18/23 documented as of this encounter
--- OUTSIDE RECORDS SUMMARY | 2025-05-05 09:01 | XMS_ITS | Encounter Summary ---
Author Organization [facility] Address [address] [facility] [place] [address] Care Team Providers Care Plywood Layup Line Back Feeder Name Role Phone Sarah oLpez DO Unavailable Unallocated, Noms Provider Primary Care Provi jung Encounter Details Date Type Department Care Team (Late st Contact Info) Description 11/10/2024 Abstract [facility] [address] [place] [address] Ingrid Esquivel NP Social History Tobacco Use [...] Description 05/13/2025 9:30 AM EDT Visit [facility] [address] [facility] [place] [phone] Priscilla Warren PA [address] [facility] [place] [address] 11/19/2025 10:50 AM EST Office Visit [facility] [address] [place] [address] Kayleigh Chung APRN-INSURANCE INSPECTOR [address] [place] [address] documented as of this encounter Visit Diagnoses Not on filedocumented in this encounter Care Teams Plywood Layup Line Back Feeder Relationship Specialty Start Date End Date Unallocated, Shagufta Jensen MD [address] [place] [address] PCP - General Family Medicine 04/20/25 Sarah Lopez DO [address] [place] [address] Referring Physician Emergency Medicine 02/18/23 documented as of this encounter
--- OUTSIDE RECORDS SUMMARY | 2025-05-05 09:01 | XMS_ITS | Encounter Summary ---
Author Organization [facility] Address [address] [place] [address] Care Team Providers Care Molder Shoulder Pad Name Role Phone Sarah Lopez DO Unavailable [phone] Unallocated, Noms Provider Primary Care Provi jung Encounter Details Date Type Department Care Team (Late st Contact Info) Description 01/06/2025 Results Follow-Up [facility] [address] [facility] [address] Suze Lopez LPN 102 [place] [address] RECURRENT VAGINITIS (HTRX) Social History Tobacco Use Types Packs/Day Years [...] AM EDT Visit [facility] [address] [facility] [place] [address] Priscilla Warren PA [address] [facility] [place] [address] 11/19/2025 10:50 AM EST Office Visit [facility] [address] [place] [address] Kayleigh Chung APRN-VOICE STUDIES DIRECTOR [address] [place] [address] documented as of this encounter Visit Diagnoses Not on filedocumented in this encounter Care Teams Molder Shoulder Pad Relationship Specialty Start Date End Date Unallocated, Noms MD Mikey [address] [place] [address] PCP - General Family Medicine 04/20/25 Sarah Lopez DO [address] [place] [address] Referring Physician Emergency Medicine 02/18/23 documented as of this encounter
--- OUTSIDE RECORDS SUMMARY | 2025-05-05 09:01 | XMS_ITS | Encounter Summary ---
Author Organization [facility] Address [address] [address] Care Team Providers Care Carbon Furnace Operator Name Role Phone Sarah Lopez DO Unavailable [phone] Unallocated, Noms Provider Primary Care Provi jung Encounter Details Date Type Department Care Team (Late Contact Info) Description 12/29/2024 Abstract [facility] 102 [facility] [place] [address] Malcolm Pendleton DO [address] [facility] [address], [place] [address] Social History Tobacco Use Types Packs/Day Years [...] 9:30 AM EDT Visit [facility] [address] [facility] [place] [address] Priscilla Warren PA [address] [place] [address] [place] [address] 11/19/2025 10:50 AM EST Office Visit [facility] [address] [facility] 350 [place] [address] Kayleigh Chung, MATTRESS STRIPPER-MODEL MAKER SCALE [address] [facility] [address] [place] [address] documented as of this encounter Visit Diagnoses Not on filedocumented in this encounter Care Teams Carbon Furnace Operator Relationship Specialty Start Date End Date Unallocated, Noms MD Mikey [facility] [address] [place], [place] [phone] PCP - General Family Medicine 04/20/25 Sarah Lopez DO [address] [place] [address] Referring Physician Emergency Medicine 02/18/23 documented as of this encounter
--- NOTE | 2025-05-05 09:07 | ECG_ITS ---
The [facility] Test Date: 2025-05-05 Pat Name: LISHA FONSECA Department: Room: - Gender: Female Solar Crew Member: : 1990 Requested By: [id number] Order Number: [id number] Reading MD: BRENDA VAIL Measurements Intervals [place] Rate: 81 P: 68 ME: 162 QRS: 70 QRSD: 84 T: 25 QT: 370 QTc: 408 Interpretive Statements 1100 Sinus rhythm 4068 Nonspecific Twave abnormality 9130 borderline ECG Compared to ECG 12/06/2022 23:42:17 Sinus bradycardia no longer present Electronically Signed On 05-05-2025 11:11:35 EDT by BRENDA VAIL
--- NOTE | 2025-05-05 09:11 | XR_ITS ---
The [address] [address] Patient Name: LISHA FONSECA MRN: [id number] date: 1990 Sex: F Assigned Patient Location: ER Current Patient Location: ER Accession/Order Number: [id number] Exam Date: 05/05/2025 09:45 Report Date: 05/05/2025 09:47 At the request of: RITU ALLEN MD Procedure: XR chest 1V XR chest 1V 05/05/2025 9:28 AM SIGNS AND SYMPTOMS: ^cough PROTOCOL: Frontal radiograph of the chest COMPARISON: None FINDINGS: The trachea is midline. The heart and mediastinal structures are within normal limits. The lung parenchyma is clear. The bony thorax is intact. XR/XR chest 1V IMPRESSION: No acute cardiopulmonary pathology. Impression dictated by: Ye Ybarra M.D. 05/05/2025 9:47 AM Dictation Location: [place] [address] Electronically authenticated by: [id number] Y Date: 05/05/2025 09:47
--- NOTE | 2025-05-05 09:53 | ED.GENADUL1 ---
HPI HPI - General Adult General Chief complaint: Upper Respiratory Infection Stated complaint: SORE THROAT CHEST PAINS SOB Time Seen by Provider: 05/05/25 09:01 Source: patient Mode of arrival: walk-in Limitations: no limitations History of Present Illness HPI narrative: The patient is 34-year-old female is coming to the ER with almost 2 to 4 days history of runny nose associated with coughing as well as chest pain whenever she take a deep breath and congestion in addition to diarrhea, she has been exposed to her kids who had similar symptoms. She does breast-feed sometimes and sometimes use the bottle and she gave almost a month ago with a normal vaginal delivery. The patient have no abdominal pain that is specific she have generalized abdominal pain and she have diarrhea nonbloody Related Data Home Medications ?Medication ?Instructions ?Recorded ?Confirmed venlafaxine 37.5 mg 37.5 mg PO .daily 03/25/25 03/26/25 capsule,extended release 24 hr Previous Rx's ?Medication ?Instructions ?Recorded valacyclovir 1 gram tablet 1,000 mg PO BID 10 days #20 tabs 12/29/24 (Valtrex) ibuprofen 800 mg tablet 800 mg PO Q8H PRN pain 14 days #40 03/27/25 tabs oxycodone-acetaminophen 5 mg-325 1 tab PO Q6H PRN pain 7 days #28 03/27/25 mg tablet (Percocet) tabs guaifenesin 600 mg tablet, 600 mg PO BID PRN cough #10 tabs 05/05/25 extended release 12 hr (Mucinex) Allergies Allergy/AdvReac Type Severity Reaction Status Date / Time cefdinir Allergy Severe Swelling Verified 05/05/25 08:42 of Lip/Tongue/Throat labetalol Allergy Severe Hives Verified 05/05/25 08:42 methimazole Allergy Severe tongue Verified 05/05/25 08:42 swelling Opioid HPI Opioid Management Most Recent Opioid Data: Last Pain Scale 6 03/28/25, 11:57 Ur Phencyclidine Scrn, (NEGATIVE) Negative 03/25/25, 11:40 Review of Systems ROS Status of ROS 10 or more systems reviewed and unremarkable except as noted in history and below PFSH PFS Medical History (Updated 05/05/25 @ 10:13 by Allie Gaviria MD) Endometrial tumor ?D49.59 - Neoplasm of unspecified behavior of other genitourinary organ (ICD-10) Endometriosis ?N80.9 - Endometriosis, unspecified (ICD-10) Hyperthyroidism ?E05.90 - Thyrotoxicosis, unspecified without thyrotoxic crisis or storm (ICD-10) Depression ?F32.A - Depression, unspecified (ICD-10) Anxiety ?F41.9 - Anxiety disorder, unspecified (ICD-10) Constipation ?K59.00 - Constipation, unspecified (ICD-10) Anemia ?D64.9 - Anemia, unspecified (ICD-10) Surgical History (Updated 02/19/24 @ 12:30 by Kayleigh Orourke, RN) H/O section ?Z98.891 - History of uterine scar from previous surgery (ICD-10) Family History (Updated 02/19/24 @ 12:13 by Kayleigh Orourke, RN) Other Family history of COPD (chronic obstructive pulmonary disease) Family history of diabetes mellitus Family history of hypertension Family history of myocardial infarction Family history of stroke Hyperthyroidism Social History (Updated 02/19/24 @ 12:12 by Kayleigh Orourke, RN) Within the past year, how often did you have a drink containing alcohol: 2-4 times a month Smoking status: Never smoker Second hand tobacco smoke exposure: No Non-prescribed substance use: cannabis (any form) Non-prescribed substance use details: on rare occasion Previous occupational history: [employer] Highest level of school completed/degree received: high school graduate Little interest or pleasure in doing things: not at all Feeling down, depressed, or hopeless: not at all Exam Narrative Exam Narrative: Nurses notes and vital signs reviewed and patient is not hypoxic. General: Well-appearing and in no apparent distress. Skin: Warm, dry, no pallor noted. No rash. Head: Normocephalic, atraumatic. Neck: Supple, non-tender. Eye: Pupils are equal, round and EOMI. No scleral icterus. Ears, Nose, Mouth, and Throat: The patient have bilateral tonsillar erythema no exudate Cardiovascular: Regular Rate and Rhythm without murmur, gallop or rub. Respiratory: No accessory muscle use or respiratory distress. Lungs decreased air entry in the bases with no wheezing auscultation or crackles Chest Wall: no tenderness Back: No midline thoracic or lumbar vertebral tenderness. No CVA tenderness Musculoskeletal: normal ROM, no calf or popliteal tenderness, no lower extremity edema/swelling GI: Abdomen is soft, non-distended. Normal bowel sounds. No masses appreciated. No tenderness to palpation. No rebound, guarding, or rigidity noted. Neurological: A&O x4. No cranial nerve dysfunction observed Constitutional Vital Signs, click to edit/add: Last Vital Signs Temp 97.8 F 05/05/25 08:42 Pulse 84 05/05/25 08:42 Resp 16 05/05/25 08:42 BP 128/78 05/05/25 08:42 Pulse Ox 97 05/05/25 08:42 O2 Del Method Room Air 05/05/25 08:42 Course Vital Signs Vital signs: Vital Signs Temperature 97.8 F 05/05/25 08:42 Pulse Rate 84 05/05/25 08:42 Respiratory Rate 16 05/05/25 08:42 Blood Pressure 128/78 05/05/25 08:42 Pulse Oximetry 97 05/05/25 08:42 Oxygen Delivery Method Room Air 05/05/25 08:42 Temperature 97.8 F 05/05/25 08:42 Pulse Rate 84 05/05/25 08:42 Respiratory Rate 16 05/05/25 08:42 Blood Pressure 128/78 05/05/25 08:42 Pulse Oximetry 97 05/05/25 08:42 Oxygen Delivery Method Room Air 05/05/25 08:42 Medical Decision Making MDM Narrative Medical decision making narrative: The patient EKG showing sinus rhythm with a heart rate of [address] elevation or depression. The patient had strep test is negative and her chest x-ray showed no acute pathology After reviewing the compatibility with breast-feeding the patient was discharged home with supportive care with Mucinex and ibuprofen for pain control after receiving Toradol in the ER The patient is to follow up with primary care physician in next 2-3 days or to return to the emergency department should any of the signs or symptoms worsen or new symptoms develop. The patient agrees with the following Diagnosis and Treatment plan and the patient will be discharged home. Lab Data Labs: Lab Results 05/05/25 Range/Units 09:25 Streptococcus Screen Negative Discharge Plan Discharge Chief Complaint: Upper Respiratory Infection Clinical Impression: Acute viral syndrome Patient Disposition: Home, Self-Care Time of Disposition Decision: 10:13 Condition: Good Mode of Transportation: Private Vehicle Prescriptions / Home Meds: New guaifenesin [Mucinex] 600 mg tablet extended release 12hr 600 mg PO BID PRN (Reason: cough) Qty: 10 0RF No Action valacyclovir [Valtrex] 1 gram tablet 1,000 mg PO BID 10 Days Qty: 20 0RF venlafaxine 37.5 mg capsule,extended release 24hr 37.5 mg PO .daily ibuprofen 800 mg tablet 800 mg PO Q8H PRN (Reason: pain) 14 Days Qty: 40 0RF oxycodone-acetaminophen [Percocet] 5-325 mg tablet 1 tab PO Q6H PRN (Reason: pain) 7 Days Qty: 28 0RF Print Language: Bahamian Instructions: Viral Syndrome (ED) Referrals: Physician,Non-Staff, MD [Primary Care Provider] - 1 week Discharge Date/Time: 05/05/25 10:22
[2025-05-05] MEDS: KETOROLAC TROMETHAMINE 30 MG/ML VIAL IM (10:01)
== END 2025-05-05 10:22 | disposition home or self-care (01) ==
PROVIDERS: Emergency Provider Emergency Medicine
DX: B34.9 Viral infection, unspecified (principal); J34.89 Other specified disorders of nose and nasal sinuses; R05.9 Cough, unspecified; R07.89 Other chest pain; R19.7 Diarrhea, unspecified
CPT/HCPCS: 71045; 87070; 87880; 93005; 96372; 99285; J1885

== ENCOUNTER 2025-06-30 15:22 | Outpatient (REF) | payer OTHER, MEDICAID, SELFPAY ==
--- OUTSIDE RECORDS SUMMARY | 2024-07-23 09:30 | XMS_ITS ---
Author Organization [facility] Address [address] [place] [address] Care Team Providers Care Parking Supervisor Name Role Phone Shanell Denson Primary Care Provider Yudelka Raymond Unavailable [phone] REASON FOR VISIT cough, congestion Social History Sex Assigned At : Social History Observation Description Sex Assigned At Female Encounters Encounter Location Date Provider Diagnosis [facility] [address] [place] [address] 07/23/2024 Yudelka Raymond Plan Of Treatment No Information Progress Notes * LISHA FONSECA GDOB: [birth year] (35 yo F)Acc No.[id number]:07/23/2024 PROGRESS NOTES Patient: LISHA MALCOLM Provider: Rowan Lopez :1990 A ge:34 Y S ex:Female Date:07/23/2024 [facility] [id number] Pcp:Shanell Denson Subjective: * Chief Complaints: * C ough, congestion Billing Information: * Procedure Codes: * Electronic signature of Howard Raymond CNP on 06/30/2025 at 11:16 AM EDT Sign off status: Pending * Provider: Rowan Lopez Date: 09/22/2023 Generated for Printi ng/Faxing/eTransmitting on: 11:16 AM EDT
--- OUTSIDE RECORDS SUMMARY | 2024-11-28 05:20 | XMS_ITS ---
Author Organization [facility] Servic es Address [address] [facility] [address] Care Team Providers Care General Operator Name Role Phone Shanell Denson Primary Care Provider Dr. Leroy Salazar Unavailable [phone] REASON FOR VISIT new pt Social History Sex Assigned At : Social History Observation Description Sex Assigned At Female Encounters Encounter Location Date Provider Diagnosis [facility] Services [address] [facility] [place] [place] [address] 11/28/2024 Leroy Salazar Plan Of Treatment No Information Progress Notes * MARIANISAAKLISHA GDOB: [birth year] (35 yo F)Acc No.[id number]:11/28/2024 Patient: LISHA MALCOLM Provider: Deb Salazar DDS :1990 A ge:34 Y S ex:Female Date:11/28/2024 Address:[facility], [address], [id number] Pcp:Shanell Denson Subjective: * Chief Complaints: * N ew pt Billing Information: * Procedure Codes: * Electronic signature of Dr. Leroy Salazar , [facility], [id number] on 06/30/2025 at 11:16 AM EDT Sign off status: Pending * Provider: Deb Salazar DDS Date: 0 11/28/2024 Generated for Printi ng/Faxing/eTransmitting on: 1 11:16 AM EDT
--- OUTSIDE RECORDS SUMMARY | 2025-04-15 07:30 | XMS_ITS ---
Author Organization [facility] Address [address] [place] [address] Care Team Providers Care Wire Winder Name Role Phone Shanell Denson Primary Care Provider [phone] REASON FOR VISIT [place] John, discuss labs Social History Sex Assigned At : Social History Observation Description Sex Assigned At Female Encounters Encounter Location Date Provider Diagnosis [facility] [address] [place] [address] 04/15/2025 Shanell Denson Plan Of Treatment No Information Progress Notes * LISHA FONSECA GDOB: [birth year] (35 yo F)Acc No.[id number]:04/15/2025 Progress Notes Patient: Deb SANCHEZ LISHA Rosa Provider: Carolynn Denson :1990 A ge:34 Y S ex:Female Date:04/15/2025 Address:[address] [place], [place] [id number] Subjective: * Chief Complaints: * Stefan Lopez, discuss labs Billing Information: * Procedure Codes: * Electronic signature of Rasheed Denson NP on 06/30/2025 at 11:16 AM EDT Sign off status: Pending * Provider: Carolynn Denson Date: 0 04/15/2025 Generated for Printi ng/Faxing/eTransmitting on: 1 11:16 AM EDT
--- OUTSIDE RECORDS SUMMARY | 2025-06-30 11:20 | XMS_ITS | Encounter Summary ---
Author Organization [facility] Address [address] [place] [address] Care Team Providers Care Veneer Redrier Name Role Phone Sarah Lopez DO Unavailable [phone] Unallocated, Noms Provider Primary Care Provi jung Reason for Visit * Reason Comments Repeat Pap Encounter Details Date Type Department Care Team (Latest Contact Info) Description 06/30/2025 11:20 AM EDT Procedure Visit [facility] [address] [facility] 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; Well woman exam with routine gynecological exam Social History Tobacco Use Types Packs/Day Years [...] Sign Reading Time Taken Comments Blood Pressure 130/84 06/30/2025 11:29 AM EDT Pulse - - Temperature - - Respiratory Rate - - Oxygen Saturation - - Inhaled Oxygen Concentration - - Weight 84.1 kg (185 lb 8 oz) 06/30/2025 11:29 AM EDT Height - - Body Mass Index 33.39 04/20/2025 2:42 PM EDT documented in this encounter Plan of Treatment Upcoming Encounters Date Type Department Care Team (Late st Contact Info) Description 07/06/2025 11:35 AM EDT Office Visit [facility] [address] [place] [phone] Kayleigh Chung BRANCH SALES AND SERVICE REPRESENTATIVE-TANK WASHER [address] [place] [address] 11/19/2025 10:50 AM EST Office Visit [facility] [address] [place] [phone] Kayleigh Chung BRANCH SALES AND SERVICE REPRESENTATIVE-TANK WASHER [address] [place] [address] Scheduled Orders Name Type Priority Associated Diagnoses Orde r Schedule Pap Smear Pathology and Cytology Routine Well woman exam with routine gynecological exam Ordered: 06/30/2025 documented as of this encounter Visit Diagnoses Diagnosis 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
--- OUTSIDE RECORDS SUMMARY | 2025-06-30 15:27 | XMS_ITS | Encounter Summary ---
Author Organization [facility] Address [address] [place] [address] Care Team Providers Care Radio Program Director Name Role Phone Sarah Lopez DO Unavailable [phone] Unallocated, Noms Provider Primary Care Provi jung Encounter Details Date Type Department Care Team (Late Contact Info) Description 01/27/2025 Abstract [facility] [address] [place] [phone] Malcolm Pendleton DO [address] [place], [facility] Social History Tobacco Use Types Packs/Day [...] Dermatology [address] [place] [phone] Felter, Kayleigh A, LEAD SECTION SUPERVISOR-RENEWAL SPECIALIST [address] [place] [address] 11/19/2025 10:50 AM EST Office Visit [facility] [address] [place] [address] SheldonKayleigh, LEAD SECTION SUPERVISOR-RENEWAL SPECIALIST [address] [place] [address] documented as of this encounter Visit Diagnoses Not on filedocumented in this encounter Care Teams Radio Program Director Relationship Specialty Start Date End Date Unallocated, Noms MD Mikey [address] [place] [address] PCP - General Family Medicine 04/20/25 Sarah Lopez DO [address] [place], [place] [id number] Referring Physician Emergency Medicine 02/18/23 documented as of this encounter
--- OUTSIDE RECORDS SUMMARY | 2025-06-30 15:27 | XMS_ITS | Encounter Summary ---
Author Organization [facility] Address [address] [place] [address] Care Team Providers Care Furniture Lumber Production Worker Name Role Phone Sarah Lopez DO Unavailable Unallocated, Noms Provider Primary Care Provi jung Encounter Details Date Type Department Care Team (Late Contact Info) Description 03/25/2025 Abstract [facility] [address] [place] [phone] Malcolm Pendleton DO [address] [facility] [address] [place], [facility] Social History Tobacco Use Types [...] Dermatology [address] [place] [phone] Felter, Kayleigh A, FINNISH RUBBER-SENIOR CORPORATE RECRUITER [address] [place] [address] 11/19/2025 10:50 AM EST Office Visit [facility] [address] [place] [address] SheldonKayleigh, FINNISH RUBBER-SENIOR CORPORATE RECRUITER [address] [place] [address] documented as of this encounter Visit Diagnoses Not on filedocumented in this encounter Care Teams Furniture Lumber Production Worker Relationship Specialty Start Date End Date Unallocated, Noms MD Mikey [address] [place] [address] PCP - General Family Medicine 04/20/25 Sarah Lopez DO [address] [place], [place] [id number] Referring Physician Emergency Medicine 02/18/23 documented as of this encounter
--- OUTSIDE RECORDS SUMMARY | 2025-06-30 15:27 | XMS_ITS | Encounter Summary ---
Author Organization [facility] Address [address] [place] [address] Care Team Providers Care Asphalt Paving Supervisor Name Role Phone Sarah Lopez DO Unavailable [phone] Unallocated, Noms Provider Primary Care Provi jung Encounter Details Date Type Department Care Team (Late Contact Info) Description 12/03/2024 Abstract [facility] [address] [facility] [place] [phone] Malcolm Pendleton DO [address] [facility] [address] [place], [facility]11 Social History [...] Dermatology [address] [place] [phone] Felter, Kayleigh A, MEDICAL DATA ENTRY CLERK-LADLER [address] [place] [address] 11/19/2025 10:50 AM EST Office Visit [facility] [address] [place] [address] SheldonKayleigh, MEDICAL DATA ENTRY CLERK-LADLER [address] [place] [address] documented as of this encounter Visit Diagnoses Not on filedocumented in this encounter Care Teams Asphalt Paving Supervisor Relationship Specialty Start Date End Date Unallocated, Noms MD Mikey [address] [place] [address] PCP - General Family Medicine 04/20/25 Sarah Lopez DO [address] [place], [place] [phone] Referring Physician Emergency Medicine 02/18/23 documented as of this encounter
--- OUTSIDE RECORDS SUMMARY | 2025-06-30 15:27 | XMS_ITS | Patient Health Record ---
Author Organization [facility] Address [address] [place] [address] Care Team Providers Care Developmental Education Instructor Name Role Phone JaniyaShanell Primary Care Provider Dr. Leroy Salazar Unavailable [phone] Yudelka Raymond Unavailable [phone] Russel Blackwell Unavailable [phone] Allergies Allergen (clinical drug ingredient) Drug/Non Drug Allergy documented on EMR Reaction Allergy Type Onset Date Status labetalol Labetalol HCl shortness of breath Drug Allergy Active Results Component Value Reference Range Flag Notes Dipstick and Microscopic Reviewed date:07/14/2024 05:15:14 PM Interpretation: Performing Lab:, , [address] [place] Notes/Report: Name Collection Type:: Clean-Voided Midstream Color,Urine Yellow Yellow Appearance,Urine Clear Clear Specificy [place],Urine 1.030 1.001-1.030 N pH,Urine 6.0 5.0-9.0 N Leukocyte Esterase,Urine Negative Negative Nitrite,Urine Negative Negative Protein,Urine 20 Negative mg/dL H Glucose,Urine (UA) Normal Normal Ketones,Urine 2+ Negative H Urobilinogen,Urine 3 Normal mg/dL H Bilirubin,Urine Negative Negative Occult Blood,Urine 1+ Negative H RBC,Urine 20-49 0-4 H WBC,Urine 5-9 0-4 H Squamous Epithelial Cell,Urine 5-9 0-2 H Bacteria,Urine Rare None Seen Hyaline Casts,Urine None 0-8 Mucus,Urine 2+ AA COVID-19 / Flu A/B / RSV PCR Reviewed date:07/14/2024 05:15:14 PM Interpretation: Performing Lab:, , [address], [place] Notes/Report: COVID-19 Cepheid Result Negative for SARS-CoV-2 RNA by RT-PCR Flu A Cepheid Result Negative for Flu A RNA by RT-PCR Flu B Cepheid Result Negative for Flu B RNA by RT-PCR RSV Cepheid Result Negative for RSV RNA by RT-PCR COVID19 Blank Space -- Reference: Negative COVID19 Blank Space -- Cepheid Disclaimer The Cepheid Xpert Xpress CoV-2/Flu/RSV [...] date:07/14/2024 04:15:57 PM Interpretation: Performing Lab: Notes/Report: [facility] Main [place] [address] [place], [place] [id number] CT Scan Report Signed Patient: Lisha Fonseca MR#: [id number] 1238 : 1990 Acct:[id number] Age/Sex: 34 / F ADM Date: 07/14/24 Loc: ER Room: Type: [facility] ER Attending Dr: Copies to: DO [...] Mancera Jr., D.O.07/14/2024 2:43 PM Dictation Location: [place] [address] Transcribed By: [facility] 07/14/24 1443 Dictated By: Leroy Mancera Jr, DO 07/14/24 1438 Signed By: <Electronically signed by Leroy Mancera Jr, DO in OV> 07/14/24 1443 Basic Metabolic Panel Reviewed date:07/14/2024 05:15:14 PM Interpretation: Performing Lab: Notes/Report: Glucose 88 70-100 mg/dL N Random Glucose Reference Range is dependent on time and content of last meal. Glucose of more than 200 mg/dL in a nonstressed, ambulatory subject supports the diagnosis of Diabetes Mellitus. ADA recommended reference range Blood Urea Nitrogen 9 7-25 mg/dL N Sodium 138 136-145 mmol/L N Potassium 3.3 3.5-5.1 mmol/L L Chloride 105 98-107 mmol/L N Carbon Dioxide 25.2 21.0-31.0 mmol/L N Calcium 8.9 8.6-10.3 mg/dL N Creatinine 0.71 0.60-1.20 mg/dL N Estimated GFR > 60.0 Anion Gap 11.1 6.0-15.0 N Creatinine Clr Calc Pharmacy 107.14 Hepatic Panel Reviewed date:07/14/2024 05:15:14 PM Interpretation: Performing Lab:, , [address] [place] Notes/Report: Total Protein 7.2 6.4-8.9 g/dL N Albumin Level 4.1 3.5-5.7 g/dL N Globulin 3.1 Albumin/Globulin Ratio 1.3 Bilirubin,Total 0.4 0.3-1.0 mg/dL N Bilirubin,Direct 0.10 0.03-0.18 mg/dL N Bilirubin,Indirect 0.3 Aspartate Amino Transferase 14 13-39 U/L N Alanine Aminotransferase 9 7-52 U/L N Alkaline Phosphatase 48 34-104 U/L N Lipase Reviewed date:07/14/2024 05:15:14 PM Interpretation: Performing Lab: Notes/Report: Lipase 45.0 11.0-82.0 U/L N Complete Blood Count Auto Di ff Reviewed date:07/14/2024 05:15:14 PM Interpretation: Performing Lab:, , [address] [place] Notes/Report: For adults in ED, MDW > 20.0 may be associated with a higher risk of sepsis during the first 12 hrs of hospital admission White Blood Count 4.3 3.8-11.6 10*3/uL N Uncorrected WBC 4.3 3.8-11.6 10*3/uL N Red Blood Count 4.57 3.60-5.00 N Hemoglobin 10.8 11.8-15.4 g/dL L Hematocrit 33.4 34.0-46.4 % L Mean Corpuscular Volume 73.1 80-100 fL L Mean Corpuscular Hemoglobin 23.5 24.7-34.3 pg L Mean Corpuscular HGB Conc 32.2 32.0-35.0 g/dL N Red Cell Distribution Width 13.7 11.9-15.3 % N Platelet Count 168 150-450 10*3/uL N Mean Platelet Volume 9.1 6.3-10.7 fL N Neutrophils % (Auto) 63.5 . % Lymphocytes % (Auto) 23.2 . % Monocytes % (Auto) 12.3 . % Eosinophils % (Auto) 0.6 . % Basophils % (Auto) 0.4 . % NRBC% 0.1 0-0.5 /100{WBC} N Neutrophils # (Auto) 2.7 1.8-7.7 10*3/uL N Lymphocytes # (Auto) 1.0 1.00-4.8 10*3/uL N Monocytes # (Auto) 0.5 0.0-0.8 10*3/uL N Eosinophils # (Auto) 0.0 0.0-0.45 10*3/uL N Basophils # (Auto) 0.0 0.0-0.2 10*3/uL N Monocyte Distribution Width 20.43 0.00-20.00 % H HCG,Urine Reviewed date:07/14/2024 05:15:14 PM Interpretation: Performing Lab: Notes/Report: Name Collection Type:: Clean-Voided Midstream HCG Qualitative,Urine Negative COVID-19 PCR Reviewed date:07/14/2024 05:15:14 PM Interpretation: Performing Lab:, , [address], [place] Notes/Report: This is a duplicate Cepheid Xpert Xpress CoV-2/Flu/RSV Plus RNA by RT-PCR result to be used for statistical tracking purpose only. Cepheid COVID PCR Negative Negative Negative Basic Metabolic Panel Reviewed date:04/20/2025 03:16:48 PM Interpretation: Performing Lab:, , [address] Notes/Report: Glucose 73 70-100 mg/dL N Random Glucose Reference Range is dependent on time and content of last meal. Glucose of more than 200 mg/dL in a nonstressed, ambulatory subject supports the diagnosis of Diabetes Mellitus. ADA recommended reference range Blood Urea Nitrogen 4 7-25 mg/dL L Sodium 136 136-145 mmol/L N Potassium 3.2 3.5-5.1 mmol/L L Chloride 107 98-107 mmol/L N Carbon Dioxide 21.3 21.0-31.0 mmol/L N Calcium 7.9 8.6-10.3 mg/dL L Creatinine 0.51 0.60-1.20 mg/dL L Estimated GFR >60.0 Anion Gap 10.9 6.0-15.0 meq/L N Creatinine Clr Calc Pharmacy 164.96 Complete Blood Count Auto Di ff Reviewed date:04/20/2025 03:16:48 PM Interpretation: Performing Lab:, , [address] Notes/Report: For adults in ED, MDW > 20.0 may be associated with a higher risk of sepsis during the first 12 hrs of hospital admission White Blood Count 6.5 3.8-11.6 10*3/uL N Uncorrected WBC 6.5 3.8-11.6 10*3/uL N Red Blood Count 3.94 3.60-5.00 10*6/uL N Hemoglobin 9.5 11.8-15.4 g/dL L Hematocrit 29.7 34.0-46.4 % L Mean Corpuscular Volume 75.3 80-100 fL L Mean Corpuscular Hemoglobin 24.1 24.7-34.3 pg L Mean Corpuscular HGB Conc 32.1 32.0-35.0 g/dL N Red Cell Distribution Width 14.2 11.9-15.3 % N Platelet Count 143 150-450 10*3/uL L Mean Platelet Volume 9.3 6.3-10.7 fL N Neutrophils % (Auto) 73.9 . % Lymphocytes % (Auto) 14.8 . % Monocytes % (Auto) 9.9 . % Eosinophils % (Auto) 1.1 . % Basophils % (Auto) 0.3 . % NRBC% 0.1 0-0.5 /100{WBC} N Neutrophils # (Auto) 4.8 1.8-7.7 10*3/uL N Lymphocytes # (Auto) 1.0 1.00-4.8 10*3/uL N Monocytes # (Auto) 0.7 0.0-0.8 10*3/uL N Eosinophils # (Auto) 0.1 0.0-0.45 10*3/uL N Basophils # (Auto) 0.0 0.0-0.2 10*3/uL N Monocyte Distribution Width 20.57 0.00-20.00 % H Quick Strep Reviewed date:04/20/2025 03:16:48 PM Interpretation: Performing Lab:, , [address], [place] Notes/Report: Streptococcus pyogenes Ag [Presence] in Throat by Rapid immunoassay Negative for Group A Strep Antigen Note 1 -- NOTE 2 Results are those of a screening test. NOTE 3 If clinically indicated please order a culture. NOTE 4 -- NOTE 5 Reference range = Negative Respiratory (Upper) Panel, P CR Reviewed date:04/20/2025 03:16:48 PM Interpretation: Performing Lab:, , [address], [place] Notes/Report: Adenovirus Not detected Bordetella parapertussis Not [...] Virus Not detected COVID-19 Detected/Not Detected Detected A COVID19 Blank Space -- COVID19 Det Results Detected results josue l only be called to COVID19 Det Results Providers for Inpatients. COVID19 Blank Space -- Blank Space -- FLUA TEST INCLUDES Influenza A tests fo r the following clinically FLUA TEST INCLUDES significant subtypes: FLUA TEST INCLUDES - Influenza A FLUA TEST INCLUDES - Influenza A H1 FLUA TEST INCLUDES - Influenza A H1 2009 FLUA TEST INCLUDES - Influenza A H3 Blank Space -- Dipstick and Microscopic Reviewed date:04/20/2025 03:16:48 PM Interpretation: Performing Lab:, , [address] [place] Notes/Report: Name Collection Type:: Clean-Voided Midstream Color,Urine Light-Yellow Yellow Appearance,Urine Clear Clear Specificy [place],Urine 1.011 1.001-1.030 N pH,Urine 6.5 5.0-9.0 N Leukocyte Esterase,Urine 2+ Negative H Nitrite,Urine Negative Negative Protein,Urine Negative Negative Glucose,Urine (UA) Normal Normal Ketones,Urine 3+ Negative H Urobilinogen,Urine Normal Normal Bilirubin,Urine Negative Negative Occult Blood,Urine Negative Negative RBC,Urine 1-2 0-4 [HPF] WBC,Urine 1-2 0-4 [HPF] Squamous Epithelial Cell,Urine 5-9 0-2 [HPF] H Bacteria,Urine 1+ None Seen H Hyaline Casts,Urine None 0-8 Mucus,Urine Rare BioFire Detected Reviewed date:04/20/2025 03:16:48 PM Interpretation: Performing Lab:, , [place] Notes/Report: BioFire Detected Detected Not Detecte AA This is a duplicate RP2.1 COVID (PCR) result to be used for statistical tracking purpose only. Comprehensive Metabolic Pane l Reviewed date:08/07/2024 07:53:16 AM Interpretation: Performing Lab:, , [address] Notes/Report: Glucose 98 70-100 mg/dL N Random Glucose Reference Range is dependent on time and content of last meal. Glucose of more than 200 mg/dL in a nonstressed, ambulatory subject supports the diagnosis of Diabetes Mellitus. ADA recommended reference range Blood Urea Nitrogen 7 7-25 mg/dL N Creatinine 0.64 0.60-1.20 mg/dL N Sodium 137 136-145 mmol/L N Potassium 3.7 3.5-5.1 mmol/L N Chloride 107 98-107 mmol/L N Carbon Dioxide 22.7 21.0-31.0 mmol/L N Calcium 9.0 8.6-10.3 mg/dL N Total Protein 7.0 6.4-8.9 g/dL N Albumin Level 4.0 3.5-5.7 g/dL N Globulin 3.0 Albumin/Globulin Ratio 1.3 Bilirubin,Total 0.6 0.3-1.0 mg/dL N Aspartate Amino Transferase 11 13-39 U/L L Alanine Aminotransferase 7 7-52 U/L N Alkaline Phosphatase 44 34-104 U/L N Estimated GFR >60.0 Anion Gap 11.0 6.0-15.0 meq/L N Creatinine Clr Calc Pharmacy 119.09 HCG,Quantitative Reviewed date:08/07/2024 07:53:16 AM Interpretation: Performing Lab:, , [address] Notes/Report: Approximate Approximate hCG Gestational Age Range (mIU/ml) (weeks) 0.2-1 5-50 1-2 50-500 2-3 100-5,000 3-4 500-10,000 4-5 1,000-50,000 5-6 10,000-100,000 6-8 15,000-200,000 8-12 10,000-100,000 HCG,Quantitative 41284.00 Complete Blood Count Auto Di ff Reviewed date:08/07/2024 07:53:16 AM Interpretation: Performing Lab:, , [address], [place] Notes/Report: White Blood Count 7.9 3.8-11.6 10*3/uL N Uncorrected WBC 7.9 3.8-11.6 10*3/uL N Red Blood Count 4.55 3.60-5.00 10*6/uL N Hemoglobin 10.5 11.8-15.4 g/dL L Hematocrit 33.2 34.0-46.4 % L Mean Corpuscular Volume 73.0 80-100 fL L Mean Corpuscular Hemoglobin 23.0 24.7-34.3 pg L Mean Corpuscular HGB Conc 31.5 32.0-35.0 g/dL L Red Cell Distribution Width 14.0 11.9-15.3 % N Platelet Count 220 150-450 10*3/uL N Mean Platelet Volume 9.3 6.3-10.7 fL N Neutrophils % (Auto) 79.0 . % Lymphocytes % (Auto) 12.7 . % Monocytes % (Auto) 6.8 . % Eosinophils % (Auto) 0.8 . % Basophils % (Auto) 0.7 . % NRBC% 0.0 0-0.5 /100{WBC} N Neutrophils # (Auto) 6.2 1.8-7.7 10*3/uL N Lymphocytes # (Auto) 1.0 1.00-4.8 10*3/uL N Monocytes # (Auto) 0.5 0.0-0.8 10*3/uL N Eosinophils # (Auto) 0.1 0.0-0.45 10*3/uL N Basophils # (Auto) 0.1 0.0-0.2 10*3/uL N Monocyte Distribution Width 17.93 0.00-20.00 % N Ethyl Alcohol Profile Reviewed date:08/07/2024 07:53:16 AM Interpretation: Performing Lab:, , [address] [place] Notes/Report: Ethanol <10 Percent Ethanol TNP Reason For Referral No Information Medications Medication SIG (Take, Route, Frequency, Duration) Notes Start Date End Date Status Fluticasone Propionate 50 MCG/ACT Suspension 1 spray in each nostril Nasally Twice a day; Duration: 14 days 05/07/2025 Active Valtrex Active Social History Tobacco Use: Social History Observation Description Date Details (start date - stop date) Never Smoker NA - NA Sex Assigned At : Social History Observation Description Sex Assigned At Female Social History Social Determinants Social Info Question Answer Notes PRAPARE Date Completed/Updated: 10/24/2021 What is your current housing situation? I have h ousing Are you worried about losing your housing? No What is the highest level of school that you have finished? 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 Stress is when someone feels tense, nervous, anxious, or cant sleep at night because their mind is troubled Not at all In the past year have you sp ent more than 2 nights in a row in a fci, longterm, mcfp center, or juvenile correctional facility? No Are you a refugee? No What country are you from? [place] Do you feel physically and e motionally safe where you currently live? Yes In the past year, have you b een afraid of your partner or ex-partner? No PRAPARE Score: 3 General Social Info Question Answer Notes Transition of Care: ER/UC/hospital since last office visit? Yes, report [place] file [facility] [place] Depression Screening (PHQ-9): Little int erest or pleasure in doing things Several days Feeling down, depressed, or hopeless More than h shelter the days Trouble falling or staying a [...] Risk) Total Score 9 Intepretation Mild Depression Substance abuse/mental healt h issues of patient/family Patient - Denies Ability to understand healthcare/treatment Patient: Good Sexual Hx: Had sex in the last 12 months (vaginal, oral, or anal)? Yes with Men only Social/Support Concerns: Patient: No Behaviors affecting health Poor/Risky Behaviors: Denie s- Communication Barrier: Language Barrier?: No Food Insecurity Screening Social Info Question Answer Notes Food Insecurity Screening Within the las t 12 months, have you been worried about your food running out before you received money to buy more? No Within the last 12 months, d id the food you buy not last, and you didn't have money to buy more? No Within the last 12 months, h ave you had any difficulty affording to eat balanced meals including all food groups (fruits, vegetables, protein, and whole grains)? No Drug/Alcohol: Social Info Question Answer Notes AUDIT-C (Standard) Did you have a drink containing alcohol in the past year? Yes How often did you have a drink containing alcohol in the past year? Monthly or less (1 point) How many drinks did you have on a typical day when you were drinking in the past year? 3 or 4 drinks (1 point) How often did you have six or more drinks on one occasion in the past year? Never (0 point) Points 2 Interpretation Negative Tobacco Use: Social Info Question Answer Notes Tobacco Control (Standard) Tobacco use: Nonsmoker Problems Problem Type SNOMED Code ICD Code Onset Dates Problem Status W/U Status Risk Notes Problem Hyperthyroidism (52892264) Hyperthyroidism (E05.90) Active confirmed Problem Thyroid nodule (675922214) Thyroid nodule (E04.1) Active confirmed Problem Iron deficiency anemia (25078849) Iron deficiency anemia, unspecified iron deficiency anemia type (D50.9) Active confirmed Problem Migraine with aura (4938299) Migraine with aura and without status migrainosus, not intractable (G43.109) Active confirmed Problem Endometriosis (097528556) Endometriosis (N80.9) Active confirmed Problem Anxiety disorder (102347466) Anxiety disorder, unspecified (F41.9) Active confirmed Vital Signs Heart Rate 70 /min 05/07/2025 Temperature 98.6 degrees Fahrenheit 05/07/2025 Respiratory Rate 20 /min 05/07/2025 Oximetry 99 % 05/07/2025 Blood pressure diastolic 83 mm Hg 05/07/2025 Height 5ft 2.5 in in 05/07/2025 Blood pressure systolic 122 mm Hg 05/07/2025 Weight 179.8 lbs 05/07/2025 BMI 32.36 kg/m2 05/07/2025 Encounters Encounter Location Date Provider Diagnosis [facility] [address] [place] [address] 07/18/2024 [facility] [address] [place] [address] 08/13/2024 [facility] [address] [place] [address] 04/07/[address] [facility] [address] [address] 05/07/2025 Russel Blackwell Viral URI J06.9 and Thalassemia alpha carrier D56.3 [facility] [address] [place] [address] 12/19/2024 Leroy Salazar Encounter for dental examination [...] cleaning with abnormal findings (ICD-10 - Z01.21) 05/07/2025 Viral URI (ICD-10 - J06.9) Patient appears to have URI, likely viral. Will send flonase, and recommended that the patient black pickler her bromfed and use as prescribed. Symptomatic management at this time, explained antibiotics are not indicated. If symptoms persist or worsen pt should call the office. 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 Her last visit was 12/19/2024 Other dental procedure status (ICD-10 - [...] Insured Coverage Start Date Coverage End Date [employer] [address] [address] [place] [address] [id number] LISHA FONSECA Other 5 [employer] [place] Medicaid [address] [place] [address] [id number] LISHA FONSECA Self - patient is the insured 3 3 [employer] [place] Medicaid [address] [address] [place] [address] [id number] LISHA FONSECA Other 5 Wrap [facility] [address] [place] [address] [phone] [id number] LISHA FONSECA Self - patient is the insured 3 3 ap [facility] [address] [place] [address] [id number] LISHA FONSECA Other 5 ap [facility] [address] [place] [address] [phone] [id number] LISHA FONSECA Self - patient is the insured 3 zDENTAL DQ [facility] CHP [place]-termed 22 [address] [place] [address] [id number] LISHA FONSECA Self - patient is the insured 2 5 zDental MEDICAID C[employer] after [facility] CHP-terme d 22 [address] [place] [address] [id number] LISHA FONSECA Self - patient is the insured 2 5 [facility] [address] [place] [address] [id number] LISHA FONSECA Other 1 5 DENTAL [employer] [address] [address] [place] [address] [id number] LISHA FONSECA Other 5 Dental Wrap [facility] [employer] [address] [place] [address] [id number] LISHA FONSECA Self - patient is the insured 5 Dental [employer] DQ [address] [address] [place] [address] [id number] LISHA FONSECA Self - patient is the insured 5 Medical (General) History Medical History History ICD Code hypertension anemia (alpha thalassemia carrier) Covid 19 Surgical History Surgery Date(Month/Year) section-x2 Endometrial Tumor Resection 04/03/22 Hospitalization History Reason Date(Month/Year) see surgical Child x2
--- OUTSIDE RECORDS SUMMARY | 2025-06-30 15:27 | XMS_ITS | Encounter Summary ---
Author Organization [facility] Address [address] [place] [address] Phone Care Team Providers Care Valet Name Role Phone Yudelka Lopez Primary Care Provider + Encounter Details Date Type Department Care Team (Late st Contact Info) Description 03/31/2022 Orders Only [facility] [address] [place] [address] Conversion, Onbase Social History Tobacco Use Types [...] on filedocumented in this encounter Care Teams Valet Relationship Specialty Start Date End Date Yudelka Lopez APRN-CNP [address] [place] [address] PCP - General 01/20/23 documented as of this encounter
--- OUTSIDE RECORDS SUMMARY | 2025-06-30 15:27 | XMS_ITS | Encounter Summary ---
Author Organization [facility] Address [address] [place] [address] Care Team Providers Care Wallcovering Hanger Name Role Phone Sarah Lopez DO Unavailable [phone] Unallocated, Noms Provider Primary Care Provi jung Encounter Details Date Type Department Care Team (Late st Contact Info) Description 01/09/2025 Results Follow-Up [facility] [address] [place] [address] Suze Lopez LPN [address] [place] [address] ALL CBC WITH AUTO DIFF, ALL BUN, [...] Description 07/06/2025 11:35 AM EDT Office Visit [facility] [address] [place] [phone] Kayleigh Chung, LEAD WAREHOUSE ASSOCIATE-CARPET RENOVATOR [address] [place] [address] 11/19/2025 10:50 AM EST Office Visit [facility] [address] [place] [address] Kayleigh Chung, LEAD WAREHOUSE ASSOCIATE-CARPET RENOVATOR [address] [place] [address] documented as of this encounter Visit Diagnoses Not on filedocumented in this encounter Care Teams Wallcovering Hanger Relationship Specialty Start Date End Date Unallocated, Noms MD Mikey [address] [place], [place] [phone] PCP - General Family Medicine 04/20/25 Sarah Lopez DO [address] [place] [address] Referring Physician Emergency Medicine 02/18/23 documented as of this encounter
--- OUTSIDE RECORDS SUMMARY | 2025-06-30 15:27 | XMS_ITS | Clinical Summary ---
Author Organization [facility] Address [address] [place] [address] Phone Care Team Providers Care Solvent Plant Operator Name Role Phone Yudelka Lopez APRN-BUFFER COPPER Primary Care Provider + Social History Tobacco [...] 04/07/2022 12:02 PM EDT Plan of Treatment Not on file Medical Devices Implanted Type Area Forensic Nurse Device Identifier Shelf Expiration Date Model / Serial / Lot Mesh, Softmesh 3 X 6, Flat Case [id number] Implanted:Qty: 1 on 04/03/2022 by Sly Crocker MD MPH Mesh Abdomen DAVOL 05/14/2024 [id number] / / [id number] Description:Converted from [facility]. Please see archived information for full log information. Care Teams Solvent Plant Operator Relationship Specialty Start Date End Date Yudelka Lopez, BUDGET TECHNICIAN-BUFFER COPPER [address] [place] [address] PCP - General 01/20/23
--- OUTSIDE RECORDS SUMMARY | 2025-06-30 15:27 | XMS_ITS | Encounter Summary ---
Author Organization [facility] Address [address] [place] [address] Care Team Providers Care Veterinary Surgeon Name Role Phone Sarah Lopez DO Unavailable Unallocated, Noms Provider Primary Care Provi jung Encounter Details Date Type Department Care Team (Late Contact Info) Description 05/19/2025 Abstract [facility] [address] [place] [phone] Malcolm Pendleton DO [address] [facility] [address] Mary Garcia, [facility] Social History Tobacco Use Types Packs/Day [...] Dermatology [address] [place] [phone] Felter, Kayleigh A, AUTHORIZATION COORDINATOR-RN TRANSITIONAL CARE [address] [place] [address] 11/19/2025 10:50 AM EST Office Visit [facility] [address] [place] [address] SheldonKayleigh, AUTHORIZATION COORDINATOR-RN TRANSITIONAL CARE [address] [place] [address] documented as of this encounter Visit Diagnoses Not on filedocumented in this encounter Care Teams Veterinary Surgeon Relationship Specialty Start Date End Date Unallocated, Noms MD Mikey [address] [place] [address] PCP - General Family Medicine 04/20/25 Sarah Lopez DO [address] [place], [place] [phone] Referring Physician Emergency Medicine 02/18/23 documented as of this encounter
--- OUTSIDE RECORDS SUMMARY | 2025-06-30 15:27 | XMS_ITS | Clinical Summary ---
Author Organization [facility] Address [address] [place] [address] Care Team Providers Care Moulder Operator Name Role Phone Unavailable Primary Care [...] Vaccine (1 - 3-dose SCDM series) 2019 Covid-19 Vaccine (1 - 2024-26 season) 2025 Influenza Vaccine (#1) 2025 DTaP,Tdap,Td Vaccine (2 - Td or Tdap) 01/09/2026 Insurance [id number] [place]
--- OUTSIDE RECORDS SUMMARY | 2025-06-30 15:27 | XMS_ITS | Encounter Summary ---
Author Organization [facility] Address [facility] [id number] [address] [place] [address] Care Team Providers Care Community Relations Police Lieutenant Name Role Phone No Pcp, No Pcp Primary Care Provider Unavailabl e Encounter Details Date Type Department Care Team (Late st Contact Info) Description 12/09/2024 Orders Only Maternal- Medicine at [facility] [address] [place] [phone] Natalie Díaz RN Choroid plexus cyst of [...] Recorded Purpose and direction in life Unknown Comments Yes Sex and Gender Information Value [...] 1 documented in this encounter Care Teams Community Relations Police Lieutenant Relationship Specialty Start Date End Date No Pcp, [place] [address] PCP - General Family Medicine 02/21/24 documented as of this encounter
--- OUTSIDE RECORDS SUMMARY | 2025-06-30 15:27 | XMS_ITS | Encounter Summary ---
Author Organization [facility] Address [address] [place] [address] Care Team Providers Care Shipping Receiving Manager Name Role Phone Sarah Lopez DO Unavailable [phone] Unallocated, Noms Provider Primary Care Provi jung Encounter Details Date Type Department Care Team (Late st Contact Info) Description 02/16/2025 Abstract [facility] [address] [place] [address] [place] [address] Maggy Sanz LPN Social History Tobacco [...] Dermatology [address] [place] [address] Kayleigh Chung, HOSPICE CLINICAL SUPERVISOR-SOFTWARE TEST SPECIALIST [address] [place] [address] 11/19/2025 10:50 AM EST Office Visit [facility]FTA [facility] [address] [place] [address] Kayleigh Chung APRN-SOFTWARE TEST SPECIALIST [address] [place] [address] documented as of this encounter Visit Diagnoses Not on filedocumented in this encounter Care Teams Shipping Receiving Manager Relationship Specialty Start Date End Date Unallocated, Nomkenisha Jensen MD [address] [place] [address] PCP - General Family Medicine 04/20/25 Sarah Lopez DO [address] [place] [address] Referring Physician Emergency Medicine 02/18/23 documented as of this encounter
--- OUTSIDE RECORDS SUMMARY | 2025-06-30 15:27 | XMS_ITS | Encounter Summary ---
Author Organization [facility] Address [address] [place] [address] Care Team Providers Care Postpartum Rn Name Role Phone Sarah Lopez DO Unavailable [phone] Unallocated, Noms Provider Primary Care Provi jung Encounter Details Date Type Department Care Team (Late st Contact Info) Description 01/06/2025 Results Follow-Up SHAGUFTA Garcia OBGYN [address] [facility] [place] [address] Suze Lopez LPN [address] [place] [address] RECURRENT VAGINITIS (HTRX) Social History Tobacco Use [...] [address] [place] [address] Kayleigh Chung, PROJECT DRILLING ENGINEER-CHIEF SCHOOL FINANCE OFFICER [address] [place] [address] 11/19/2025 10:50 AM EST Office Visit [facility] [address] [place] [address] Kayleigh Chung, PROJECT DRILLING ENGINEER-CHIEF SCHOOL FINANCE OFFICER [address] [place] [address] documented as of this encounter Visit Diagnoses Not on filedocumented in this encounter Care Teams Postpartum Rn Relationship Specialty Start Date End Date Unallocated, Noms MD Mikey [address] [place], [place] [address] PCP - General Family Medicine 04/20/25 Sarah Lopez DO [address] [place] [address] Referring Physician Emergency Medicine 02/18/23 documented as of this encounter
--- OUTSIDE RECORDS SUMMARY | 2025-06-30 15:27 | XMS_ITS | Encounter Summary ---
Author Organization [facility] Address [address] [place] [address] Care Team Providers Care Supervisor Transcribing Operators Name Role Phone Sarah Lopez DO Unavailable [phone] Unallocated, Noms Provider Primary Care Provi jung Encounter Details Date Type Department Care Team (Late Contact Info) Description 05/22/2025 Abstract [facility]AG[facility]FTA [place] [facility] [address] [facility] [address] [place] [address] Marcelle Taylor, GAMING WORKER [address] [place] [address] Social History Tobacco Use Types Packs/Day Years [...] Department Care Team (Late Contact Info) Description 07/06/2025 11:35 AM EDT Office Visit SH[facility]FTA [facility] [address] [facility] [address] [place] [address] Kayleigh hCung, BETTY-COMMERCIAL LITIGATION ATTORNEY [address] [place] [address] 11/19/2025 10:50 AM EST Office Visit [facility]FTA [facility] [address] [place] [address] Kayleigh Chung APRN-COMMERCIAL LITIGATION ATTORNEY [address] [place] [address] documented as of this encounter Visit Diagnoses Not on filedocumented in this encounter Care Teams Supervisor Transcribing Operators Relationship Specialty Start Date End Date Unallocated, Noms MD Mikey [address] [place] [address] PCP - General Family Medicine 04/20/25 Sarah Lopez DO [address] [place] [address] Referring Physician Emergency Medicine 02/18/23 documented as of this encounter
--- OUTSIDE RECORDS SUMMARY | 2025-06-30 15:27 | XMS_ITS | Encounter Summary ---
Author Organization [facility] Address [address] [place] [address] Care Team Providers Care Water Treatment Specialist Name Role Phone Sarah Lopez DO Unavailable [phone] Unallocated, Noms Provider Primary Care Provi jung Encounter Details Date Type Department Care Team (Late Contact Info) Description 03/30/2025 Abstract SHAGUFTA Garcia OBGYN [address] [facility] [place] [phone] Malcolm Pendleton DO [address] [facility] [address] Mary Garcia, [facility]11 Social History Tobacco Use Types [...] Dermatology [address] [place] [phone] Felter, Kayleigh A, MANUFACTURING ASSEMBLER-HAND UPPER AND BOTTOM LACER [address] [place] [address] 11/19/2025 10:50 AM EST Office Visit [facility] [address] [place] [address] SheldonKayleigh, MANUFACTURING ASSEMBLER-HAND UPPER AND BOTTOM LACER [address] [place] [address] documented as of this encounter Visit Diagnoses Not on filedocumented in this encounter Care Teams Water Treatment Specialist Relationship Specialty Start Date End Date Unallocated, Noms MD Mikey [address] [place] [address] PCP - General Family Medicine 04/20/25 Sarah Lopez DO [address] [place], [place] [address] Referring Physician Emergency Medicine 02/18/23 documented as of this encounter
--- OUTSIDE RECORDS SUMMARY | 2025-06-30 15:27 | XMS_ITS | Encounter Summary ---
Author Organization [facility] Address [address] [place] [address] Care Team Providers Care Watchmaker Apprentice Name Role Phone Sarah Lopez DO Unavailable [phone] Unallocated, Noms Provider Primary Care Provi jung Encounter Details Date Type Department Care Team (Late Contact Info) Description 06/30/2025 Bamboo flowsheet SHAGUFTA Garcia OBGYN [address] [facility] [phone] Malcolm Pendleton DO [address] [facility] [address] Mary Garcia, [facility]11 Social History [...] Dermatology [address] [place] [address] Kayleigh Chung, MARINE FIREMAN-FIBER LOCKING SUPERVISOR [address] [place] [address] 11/19/2025 10:50 AM EST Office Visit SHAG[facility]FTA [facility] [address] [place] [address] Kayleigh Chung, MARINE FIREMAN-FIBER LOCKING SUPERVISOR [address] [place] [address] documented as of this encounter Visit Diagnoses Not on filedocumented in this encounter Care Teams Watchmaker Apprentice Relationship Specialty Start Date End Date Unallocated, Nomkenisha Jensen MD [address] [place] [address] PCP - General Family Medicine 04/20/25 Sarah Lopez DO [address] [place] [address] Referring Physician Emergency Medicine 02/18/23 documented as of this encounter
--- OUTSIDE RECORDS SUMMARY | 2025-06-30 15:27 | XMS_ITS | Encounter Summary ---
Author Organization [facility] Address [id number] [address] [place] [address] Care Team Providers Care Med Asst Name Role Phone No Pcp, No Pcp Primary Care Provider Unavailabl e Encounter Details Date Type Department Care Team (Late st Contact Info) Description 12/01/2024 Orders Only Maternal- Medicine at [facility] [address] [place] [address] Natalie Díaz RN Choroid plexus cyst of [...] 1 documented in this encounter Care Teams Med Asst Relationship Specialty Start Date End Date No Pcp, [place] [address] PCP - General Family Medicine 02/21/24 documented as of this encounter
--- OUTSIDE RECORDS SUMMARY | 2025-06-30 15:27 | XMS_ITS | Encounter Summary ---
Author Organization [facility] Address [address] [place] [address] Care Team Providers Care Assistant Womens Volleyball Coach Name Role Phone Sarah Lopez DO Unavailable [phone] Unallocated, Noms Provider Primary Care Provi jung Encounter Details Date Type Department Care Team (Late Contact Info) Description 03/25/2025 Abstract SHAGUFTA Garcia OBGYN [address] [facility] [place] [address] Malcolm Pendleton DO [address] [facility] [address] Mary Garcia, [facility]11 Social History Tobacco [...] Dermatology [address] [place] [address] Felter, Kayleigh A, EQUIPMENT PROCESSOR-SLIVER CUTTER [address] [place] [address] 11/19/2025 10:50 AM EST Office Visit [facility] [address] [place] [address] SheldonKayleigh, EQUIPMENT PROCESSOR-SLIVER CUTTER [address] [place] [address] documented as of this encounter Visit Diagnoses Not on filedocumented in this encounter Care Teams Assistant Womens Volleyball Coach Relationship Specialty Start Date End Date Unallocated, Noms MD Mikey [address] [place] [address] PCP - General Family Medicine 04/20/25 Sarah Lopez DO [address] [place], [place] [address] Referring Physician Emergency Medicine 02/18/23 documented as of this encounter
--- OUTSIDE RECORDS SUMMARY | 2025-06-30 15:27 | XMS_ITS | Encounter Summary ---
Author Organization [facility] Address [facility] [id number] [address] [place] [address] Care Team Providers Care Education And Training Coordinator Name Role Phone No Pcp, No Pcp Primary Care Provider Unavailabl e Encounter Details Date Type Department Care Team (Late st Contact Info) Description 10/10/2024 Abstract Maternal- Medicine at [facility] [address] [place] [phone] Torey Barnett MD [address] [place] [address] Social History Tobacco Use Types Packs/Day Years [...] ORDERABLES Larissa l Result Performing Organization Address City/[facility]/ZIP Co de Phone Number MANUALLY TRANSCRIBED RESULTS * Syphilis Total(Unknown Syphilis Status) (09/11/2024) Syphilis Total non- reactive MANUALLY TRANSCRIBED RESULTS us Not In System Ref Prov LAB BLOOD ORDERABLES Larissa l Result Performing Organization Address City/[facility] Co de Phone Number MANUALLY TRANSCRIBED RESULTS documented in this encounter Visit Diagnoses Not on filedocumented in this encounter Care Teams Education And Training Coordinator Relationship Specialty Start Date End Date No Pcp, [place] [address] PCP - General Family Medicine 02/21/24 documented as of this encounter
--- OUTSIDE RECORDS SUMMARY | 2025-06-30 15:27 | XMS_ITS | Encounter Summary ---
Author Organization [facility] Address [address] [place] [address] Care Team Providers Care Executive Administrator Name Role Phone Sarah Lopez DO Unavailable [phone] Unallocated, Noms Provider Primary Care Provi jung Encounter Details Date Type Department Care Team (Late st Contact Info) Description 01/08/2025 Results Follow-Up SHAGUFTA Garcia [facility] [address] [facility] [place] [address] Suze Lopez LPN 102 [place] [address] ALL CBC WITH AUTO DIFF, GLUCOSE 1 [...] 07/06/2025 11:35 AM EDT Office Visit [facility] [place] [facility] [address] [place] [address] Kayleigh Chung, RULING TECHNICIAN-HYDRAULIC OPERATOR [address] [place] [address] 11/19/2025 10:50 AM EST Office Visit [facility]FTA [place] [facility] [address] [place] [address] Kayleigh Chung, RULING TECHNICIAN-HYDRAULIC OPERATOR [address] [place] [address] documented as of this encounter Visit Diagnoses Not on filedocumented in this encounter Care Teams Executive Administrator Relationship Specialty Start Date End Date Unallocated, Shagufta Jensen MD [address] [place], [place] [address] PCP - General Family Medicine 04/20/25 Sarah Lopez DO [address] [place] [address] Referring Physician Emergency Medicine 02/18/23 documented as of this encounter
--- OUTSIDE RECORDS SUMMARY | 2025-06-30 15:27 | XMS_ITS | Encounter Summary ---
Author Organization [facility] Address [address] [place] [address] Care Team Providers Care Supervisor Riprap Placing Name Role Phone Sarah Lopez DO Unavailable [phone] Unallocated, Noms Provider Primary Care Provi jung Encounter Details Date Type Department Care Team (Late Contact Info) Description 03/27/2025 Abstract SHAGUFTA Garcia OBGYN [address] [place] [phone] Malcolm Pendleton DO [address] [facility] [address] Mary Garcia, [facility]11 Social History Tobacco Use [...] Dermatology [address] [place] [address] Felter, Kayleigh A, SUPERVISOR CAPACITOR PROCESSING-RESIDENTIAL ROOFER HELPER [address] [place] [address] 11/19/2025 10:50 AM EST Office Visit [facility] [address] [place] [address] SheldonKayleigh, SUPERVISOR CAPACITOR PROCESSING-RESIDENTIAL ROOFER HELPER [address] [place] [address] documented as of this encounter Visit Diagnoses Not on filedocumented in this encounter Care Teams Supervisor Riprap Placing Relationship Specialty Start Date End Date Unallocated, Noms MD Mikey [address] [place] [address] PCP - General Family Medicine 04/20/25 Sarah Lopez DO [address] [place], [place] [address] Referring Physician Emergency Medicine 02/18/23 documented as of this encounter
--- OUTSIDE RECORDS SUMMARY | 2025-06-30 15:27 | XMS_ITS | Encounter Summary ---
Author Organization [facility] Address [address] [place] [address] Care Team Providers Care Palliative Medicine Physician Name Role Phone Sarah Lopez DO Unavailable [phone] Unallocated, Noms Provider Primary Care Provi jung Encounter Details Date Type Department Care Team (Late Contact Info) Description 02/05/2025 Abstract SHAGUFTA Garcia OBGYN [address] [facility] [place] [phone] Malcolm Pendleton DO [address] [facility] [address] Mary Garcia, [facility]11 Social History Tobacco [...] Dermatology [address] [place] [address] Felter, Kayleigh A, HEEL PAINTER-ASSISTANT PRINCIPAL [address] [place] [address] 11/19/2025 10:50 AM EST Office Visit [facility] [address] [place] [address] SheldonKayleigh, HEEL PAINTER-ASSISTANT PRINCIPAL [address] [place] [address] documented as of this encounter Visit Diagnoses Not on filedocumented in this encounter Care Teams Palliative Medicine Physician Relationship Specialty Start Date End Date Unallocated, Noms MD Mikey [address] [place] [address] PCP - General Family Medicine 04/20/25 Sarah Lopez DO [address] [place], [place] [phone] Referring Physician Emergency Medicine 02/18/23 documented as of this encounter
--- OUTSIDE RECORDS SUMMARY | 2025-06-30 15:27 | XMS_ITS | Encounter Summary ---
Author Organization [facility] Address [address] [place] [address] Care Team Providers Care String Top Sealer Name Role Phone Sarah Lopez DO Unavailable [phone] Unallocated, Noms Provider Primary Care Provi jung Encounter Details Date Type Department Care Team (Late Contact Info) Description 03/10/2025 Abstract SHAGUFTA Garcia OBGYN [address] [facility] [place] [phone] Malcolm Pendleton DO [address] [facility] [address] Mary Garcia, [facility]11 Social History Tobacco [...] Dermatology [address] [place] [address] Felter, Kayleigh A, POSTULANT-CENTRAL OFFICE TROUBLE SHOOTER [address] [place] [address] 11/19/2025 10:50 AM EST Office Visit [facility] [address] [place] [address] SheldonKayleigh, POSTULANT-CENTRAL OFFICE TROUBLE SHOOTER [address] [place] [address] documented as of this encounter Visit Diagnoses Not on filedocumented in this encounter Care Teams String Top Sealer Relationship Specialty Start Date End Date Unallocated, Noms MD Mikey [address] [place] [address] PCP - General Family Medicine 04/20/25 Sarah Lopez DO [address] [place], [place] [address] Referring Physician Emergency Medicine 02/18/23 documented as of this encounter
--- OUTSIDE RECORDS SUMMARY | 2025-06-30 15:27 | XMS_ITS | Encounter Summary ---
Author Organization [facility] Address [address] [facility] [place] [address] Care Team Providers Care [id number] Armor Crewman Name Role Phone Sarah Lopez DO Unavailable Unallocated, Noms Provider Primary Care Provi jung Encounter Details Date Type Department Care Team (Late st Contact Info) Description 01/30/2025 Abstract [facility] [address] [place] [address] [place] [address] Mary Cruz MA Social History Tobacco [...] Dermatology [address] [place] [address] Kayleigh Chung, FLAT LOCKER-[employer] [address] [place] [address] 11/19/2025 10:50 AM EST Office Visit [facility] [address] [place] [address] Kayleigh Chung APRN-[employer] [address] [place] [address] documented as of this encounter Visit Diagnoses Not on filedocumented in this encounter Care Teams [id number] Armor Crewman Relationship Specialty Start Date End Date Unallocated, Nomkenisha Jensen MD [address] [place] [address] PCP - General Family Medicine 04/20/25 Sarah Lopez DO [address] [place] [address] Referring Physician Emergency Medicine 02/18/23 documented as of this encounter
--- OUTSIDE RECORDS SUMMARY | 2025-06-30 15:27 | XMS_ITS | Encounter Summary ---
Author Organization [facility] Address [address] [place] [address] Care Team Providers Care Videogame Designer Name Role Phone Sarah Lopez DO Unavailable [phone] Unallocated, Noms Provider Primary Care Provi jung Encounter Details Date Type Department Care Team (Late Contact Info) Description 03/15/2025 Abstract SHAGUFTA Garcia OBGYN [address] [facility] [address] Malcolm Pendleton DO [address] [facility] [address] Mary Garcia, [facility]11 Social History [...] Dermatology [address] [place] [address] Felter, Kayleigh A, LEAD SOFTWARE TEST ENGINEER-UNIVERSITY REGISTRAR [address] [place] [address] 11/19/2025 10:50 AM EST Office Visit [facility] [address] [place] [address] SheldonKayleigh, LEAD SOFTWARE TEST ENGINEER-UNIVERSITY REGISTRAR [address] [place] [address] documented as of this encounter Visit Diagnoses Not on filedocumented in this encounter Care Teams Videogame Designer Relationship Specialty Start Date End Date Unallocated, Noms MD Mikey [address] [place] [address] PCP - General Family Medicine 04/20/25 Sarah Lopez DO [address] [place], [place] [phone] Referring Physician Emergency Medicine 02/18/23 documented as of this encounter
--- OUTSIDE RECORDS SUMMARY | 2025-06-30 15:27 | XMS_ITS | Encounter Summary ---
Author Organization [facility] Address [address] [place] [address] Care Team Providers Care Sql Programmer Analyst Name Role Phone Sarah Lopez DO Unavailable [phone] Unallocated, Noms Provider Primary Care Provi jung Encounter Details Date Type Department Care Team (Late Contact Info) Description 01/13/2025 Abstract SHAGUFTA Garcia OBGYN [address] [facility] [place] [phone] Malcolm Pendleton DO [address] [facility] [address] Mary Garcia, [facility]11 Social History Tobacco [...] Dermatology [address] [place] [address] Felter, Kayleigh A, STORE KEEPER-UTILITY ASSEMBLER [address] [place] [address] 11/19/2025 10:50 AM EST Office Visit [facility] [address] [place] [address] SheldonKayleigh, STORE KEEPER-UTILITY ASSEMBLER [address] [place] [address] documented as of this encounter Visit Diagnoses Not on filedocumented in this encounter Care Teams Sql Programmer Analyst Relationship Specialty Start Date End Date Unallocated, Noms MD Mikey [address] [place] [address] PCP - General Family Medicine 04/20/25 Sarah Lopez DO [address] [place], [place] [address] Referring Physician Emergency Medicine 02/18/23 documented as of this encounter
--- OUTSIDE RECORDS SUMMARY | 2025-06-30 15:27 | XMS_ITS | Encounter Summary ---
Author Organization [facility] Address [address] [place] [address] Care Team Providers Care Gymnastics Instructor Name Role Phone Sarah Lopez DO Unavailable [phone] Unallocated, Noms Provider Primary Care Provi jung Encounter Details Date Type Department Care Team (Late Contact Info) Description 02/13/2025 Abstract SHAGUFTA Garcia OBGYN [address] [facility] [place] [phone] Malcolm Pendleton DO [address] [facility] [address] Mary Garcia, [facility]11 Social History Tobacco [...] Dermatology [address] [place] [address] Felter, Kayleigh A, ACCOUNT ADVISOR-TAR ROOFER [address] [place] [address] 11/19/2025 10:50 AM EST Office Visit [facility] [address] [place] [address] SheldonKayleigh, ACCOUNT ADVISOR-TAR ROOFER [address] [place] [address] documented as of this encounter Visit Diagnoses Not on filedocumented in this encounter Care Teams Gymnastics Instructor Relationship Specialty Start Date End Date Unallocated, Noms MD Mikey [address] [place] [address] PCP - General Family Medicine 04/20/25 Sarah Lopez DO [address] [place], [place] [address] Referring Physician Emergency Medicine 02/18/23 documented as of this encounter
--- OUTSIDE RECORDS SUMMARY | 2025-06-30 15:27 | XMS_ITS | Encounter Summary ---
Author Organization [facility] Address [address] [place] [address] Care Team Providers Care Rescue Boat Operator Name Role Phone Sarah Lopez DO Unavailable [phone] Unallocated, Noms Provider Primary Care Provi jung Encounter Details Date Type Department Care Team (Late Contact Info) Description 03/25/2025 Abstract SHAGUFTA Garcia OBGYN [address] [facility] [place] [phone] Malcolm Pendleton DO [address] [facility] [address] Mary Garcia, [facility] Social History Tobacco Use Types Packs/Day Years [...] Dermatology [address] [place] [address] Felter, Kayleigh A, LOAN SECRETARY-PRECAST WORKER [address] [place] [address] 11/19/2025 10:50 AM EST Office Visit [facility] [address] [place] [address] SheldonKayleigh, LOAN SECRETARY-PRECAST WORKER [address] [place] [address] documented as of this encounter Visit Diagnoses Not on filedocumented in this encounter Care Teams Rescue Boat Operator Relationship Specialty Start Date End Date Unallocated, Noms MD Mikey [address] [place] [address] PCP - General Family Medicine 04/20/25 Sarah Lopez DO [address] [place], [place] [id number] Referring Physician Emergency Medicine 02/18/23 documented as of this encounter
--- OUTSIDE RECORDS SUMMARY | 2025-06-30 15:28 | XMS_ITS | Encounter Summary ---
Author Organization [facility] Address [address] [place] [address] Care Team Providers Care Weapons Officer Naval Activity Name Role Phone Sarah Lopez DO Unavailable [phone] Unallocated, Noms Provider Primary Care Provi jung Encounter Details Date Type Department Care Team (Late Contact Info) Description 01/14/2025 Abstract SHAGUFTA Garcia OBGYN [address] [facility] [phone] Malcolm Pendleton DO [address] [facility] [address] Mary Garcia, [facility]11 Social History Tobacco Use Types Packs/Day Years [...] Dermatology [address] [place] [address] Felter, Kayleigh A, SYSTEMS SOFTWARE DEVELOPER-MORTICIAN SUPPLIES SALES REPRESENTATIVE [address] [place] [address] 11/19/2025 10:50 AM EST Office Visit [facility] [address] [place] [address] SheldonKayleigh, SYSTEMS SOFTWARE DEVELOPER-MORTICIAN SUPPLIES SALES REPRESENTATIVE [address] [place] [address] documented as of this encounter Visit Diagnoses Not on filedocumented in this encounter Care Teams Weapons Officer Naval Activity Relationship Specialty Start Date End Date Unallocated, Noms MD Mikey [address] [place] [address] PCP - General Family Medicine 04/20/25 Sarah Lopez DO [address] [place], [place] [address] Referring Physician Emergency Medicine 02/18/23 documented as of this encounter
--- OUTSIDE RECORDS SUMMARY | 2025-06-30 15:28 | XMS_ITS | Encounter Summary ---
Author Organization [facility] Address [address] [place] [address] Care Team Providers Care Personnel Administrator Name Role Phone Sarah Lopez DO Unavailable [phone] Unallocated, Noms Provider Primary Care Provi jung Encounter Details Date Type Department Care Team (Late Contact Info) Description 12/29/2024 Abstract SHAGUFTA Garcia OBGYN [address] [facility] [place] [phone] Malcolm Pendleton DO [address] [facility] [address] Mary Garcia, [facility]11 Social History Tobacco Use Types Packs/Day [...] Dermatology [address] [place] [address] Felter, Kayleigh A, LOCOMOTIVE DRIVER-SIDE FRAMER [address] [place] [address] 11/19/2025 10:50 AM EST Office Visit [facility] [address] [place] [address] SheldonKayleigh, LOCOMOTIVE DRIVER-SIDE FRAMER [address] [place] [address] documented as of this encounter Visit Diagnoses Not on filedocumented in this encounter Care Teams Personnel Administrator Relationship Specialty Start Date End Date Unallocated, Noms MD Mikey [address] [place] [address] PCP - General Family Medicine 04/20/25 Sarah Lopez DO [address] [place], [place] [address] Referring Physician Emergency Medicine 02/18/23 documented as of this encounter
--- OUTSIDE RECORDS SUMMARY | 2025-06-30 15:28 | XMS_ITS | Encounter Summary ---
Author Organization [facility] Address [address] [place] [address] Care Team Providers Care Community Education Coordinator Name Role Phone Sarah Lopez DO Unavailable [phone] Unallocated, Noms Provider Primary Care Provi jung Encounter Details Date Type Department Care Team (Late st Contact Info) Description 11/10/2024 Abstract [facility] [address] [place] [address] Ingrid Esquivel NP Social History Tobacco Use [...] Dermatology [address] [place] [address] Kayleigh Chung, DICE MANAGER-SEARCH ENGINEER [address] [place] [address] 11/19/2025 10:50 AM EST Office Visit [facility] [address] [place] [address] Kayleigh Chung APRN-SEARCH ENGINEER [address] [place] [address] documented as of this encounter Visit Diagnoses Not on filedocumented in this encounter Care Teams Community Education Coordinator Relationship Specialty Start Date End Date Unallocated, Shagufta Jensen MD [address] [place] [address] PCP - General Family Medicine 04/20/25 Sarah Lopez DO [address] [place] [address] Referring Physician Emergency Medicine 02/18/23 documented as of this encounter
--- OUTSIDE RECORDS SUMMARY | 2025-06-30 15:28 | XMS_ITS | Encounter Summary ---
Author Organization [facility] Address [address] [place] [address] Care Team Providers Care Tire Shop Mechanic Name Role Phone Sarah Lopez DO Unavailable [phone] Unallocated, Noms Provider Primary Care Provi jung Encounter Details Date Type Department Care Team (Late Contact Info) Description 09/15/2024 Abstract SHAGUFTA Garcia OBGYN [address] [facility] [place] [phone] Malcolm Pendleton DO [address] [facility] [address] Mary Garcia, [facility]11 Social History Tobacco Use Types Packs/Day Years [...] Dermatology [address] [place] [address] Felter, Kayleigh A, VISUALIZATION DEVELOPER-SHIFT LEADER [address] [place] [address] 11/19/2025 10:50 AM EST Office Visit [facility] [address] [place] [address] SheldonKayleigh, VISUALIZATION DEVELOPER-SHIFT LEADER [address] [place] [address] documented as of this encounter Visit Diagnoses Not on filedocumented in this encounter Care Teams Tire Shop Mechanic Relationship Specialty Start Date End Date Unallocated, Noms MD Mikey [address] [place] [address] PCP - General Family Medicine 04/20/25 Sarah Lopez DO [address] [place], [place] [address] Referring Physician Emergency Medicine 02/18/23 documented as of this encounter
--- OUTSIDE RECORDS SUMMARY | 2025-06-30 15:28 | XMS_ITS | Encounter Summary ---
Author Organization [facility] Address [address] [place] [address] Care Team Providers Care Theatrical Variety Agent Name Role Phone Sarah Lopez DO Unavailable [phone] Unallocated, Noms Provider Primary Care Provi jung Encounter Details Date Type Department Care Team (Late st Contact Info) Description 02/19/2024 Clinisync Result Encounter [facility] External Department Unsolicited Maria Pendleton, DO [address] [facility] [address] [place] [id number] Social History Tobacco Use Types Packs/Day Years [...] Office Visit [facility] [address] [place] [address] Kayleigh Chung, SOLAR SYSTEM INSTALLER-ARTS AND CRAFTS TEACHER [address] [place] [address] 11/19/2025 10:50 AM EST Office Visit [facility] [address] [place] [address] Kayleigh Chung, SOLAR SYSTEM INSTALLER-ARTS AND CRAFTS TEACHER [address] [place] [address] documented as of this encounter Procedures Procedure Name Priority Date/Time Associated Diagnosis Comments US PELVIS TRANSVAGINAL 02/19/2024 12:27 PM EDT documented in this encounter Results * US PELVIS TRANSVAGINAL (02/19/2024 12:27 PM EDT) Anatomical Region Laterality Modality Other 02/19/2024 12:2 7 PM EDT Narrative 02/19/2024 12:29 PM EDT The [place] [id number] Ultrasound Report Signed Patient: LISHA FONSECA MR#: [id number] : 1990 Acct:[id number] Age/Sex: 33 / F ADM Date: 02/19/24 Loc: [facility] Attending Dr: Maria Pendleton D.O. Ordering Physician: Maria Pendleton D.O. Date of Service: 02/19/24 Procedure(s): US pelvis transvaginal Accession Number(s): [id number] cc: Maria Pendleton D.O.; Physician,Non-Staff M.D. The [address] [address] Patient Name: LISHA FONSECA MRN: [id number] date: 1990 Sex: F Assigned Patient Location: [facility] Current Patient Location: [facility] Accession/Order Number: [id number] Exam Date: 02/19/2024 11:18 Report Date: 02/19/2024 [...] Signed By: 02/19/24 1229 DD/ 1227 TD/TT: Saw Tailer: Procedure Note Radiology, Radiologist, MD - 02/19/2024 [place] [address] Ultrasound Report Signed Patient: LISHA FONSECA GMR#: [id number] : 1990Acct:[id number] Age/Sex: FAD Date: 02/19/24 Loc: [facility] Attending Dr: Maria Pendleton D.O. Ordering Physician: Maria Pendleton D.O. Date of Service: 02/19/24 Procedure(s): US pelvis transvaginal Accession Number(s): [id number] cc: Maria Pendleton D.O.; Physician,Non-Staff Kacey The [place] [id number] Patient Name: LISHA FONSECA MRN: [id number] date: 1990 Sex: F Assigned Patient Location: [facility] Current Patient Location: [facility] Accession/Order Number: [id number] Exam Date: 02/19/2024 11:18 Report Date: 02/19/2024 [...] M.D. Signed By:02/19/24 1229 DD/ 1227 TD/TT: Saw Tailer: us Maria Pendleton DO [facility] Final Result documented in this encounter Visit Diagnoses Not on filedocumented in this encounter Care Teams Theatrical Variety Agent Relationship Specialty Start Date End Date Unallocated, Noms Provider, [address] [place] [address] PCP - General Family Medicine 04/20/25 Sarah Lopez DO [address] [place] [address] Referring Physician Emergency Medicine 02/18/23 documented as of this encounter
--- OUTSIDE RECORDS SUMMARY | 2025-06-30 15:28 | XMS_ITS | Clinical Summary ---
Author Organization [facility] Address [id number] [address] [place] [address] Care Team Providers Care Biodiesel Plant Operations Engineer Name Role Phone No Pcp, No [...] , antepartum 03/17/2019 History of anemia 03/17/2019 Family History Medical History Relation Name Comments [...] Purpose and direction in life Unknown Comments No Sex and Gender Information Value [...] 10/14/2024 Medical Devices Not on file Insurance [employer] [address] [employer] Care Teams Biodiesel Plant Operations Engineer Relationship Specialty Start Date End Date No Pcp, No Pcp KRISTOPHER Mccormick [address] PCP - General Family Medicine 02/21/24
--- OUTSIDE RECORDS SUMMARY | 2025-06-30 15:28 | XMS_ITS | Encounter Summary ---
Author Organization [facility] Address [address] [place] [address] Care Team Providers Care Vending Mechanic Name Role Phone Sarah Lopez DO Unavailable [phone] Unallocated, Noms Provider Primary Care Provi jung Encounter Details Date Type Department Care Team (Late Contact Info) Description 01/27/2025 Abstract SHAGUFTA Garcia OBGYN [address] [place] [phone] Malcolm Pendleton DO [address] [facility] [address] Mary Garcia, [facility]11 Social History Tobacco Use Types Packs/Day [...] Dermatology [address] [place] [address] Felter, Kayleigh A, INTERIOR WIRER-GLOBAL ANALYTICS HEAD [address] [place] [address] 11/19/2025 10:50 AM EST Office Visit [facility] [address] [place] [address] SheldonKayleigh, INTERIOR WIRER-GLOBAL ANALYTICS HEAD [address] [place] [address] documented as of this encounter Visit Diagnoses Not on filedocumented in this encounter Care Teams Vending Mechanic Relationship Specialty Start Date End Date Unallocated, Noms MD Mikey [address] [place] [address] PCP - General Family Medicine 04/20/25 Sarah Lopez DO [address] [place], [place] [address] Referring Physician Emergency Medicine 02/18/23 documented as of this encounter
--- OUTSIDE RECORDS SUMMARY | 2025-06-30 15:28 | XMS_ITS | Encounter Summary ---
Author Organization [facility] Address [address] [place] [address] Care Team Providers Care Commercial Leasing Manager Name Role Phone Sarah Lopez DO Unavailable [phone] Unallocated, Noms Provider Primary Care Provi jung Encounter Details Date Type Department Care Team (Late Contact Info) Description 01/20/2025 Abstract SHAGUFTA Garcia OBGYN [address] [facility] [phone] Malcolm Pendleton DO [address] [facility] [address] Mary Garcia, [facility]11 Social History Tobacco Use Types [...] Dermatology [address] [place] [address] Felter, Kayleigh A, MESS ATTENDANT CREW-PROPELLER ENGINEER [address] [place] [address] 11/19/2025 10:50 AM EST Office Visit [facility] [address] [place] [address] SheldonKayleigh, MESS ATTENDANT CREW-PROPELLER ENGINEER [address] [place] [address] documented as of this encounter Visit Diagnoses Not on filedocumented in this encounter Care Teams Commercial Leasing Manager Relationship Specialty Start Date End Date Unallocated, Noms MD Mikey [address] [place] [address] PCP - General Family Medicine 04/20/25 Sarah Lopez DO [address] [place], [place] [address] Referring Physician Emergency Medicine 02/18/23 documented as of this encounter
--- OUTSIDE RECORDS SUMMARY | 2025-06-30 15:28 | XMS_ITS | Encounter Summary ---
Author Organization [facility] Address [address] [place] [address] Care Team Providers Care Deputy District Customs Director Name Role Phone Sarah Lopez DO Unavailable [phone] Unallocated, Noms Provider Primary Care Provi jung Encounter Details Date Type Department Care Team (Late Contact Info) Description 08/26/2024 Abstract SHAGUFTA Garcia OBGYN [address] [facility] [place] [place] [phone] Malcolm Pendleton DO [address] [facility] [address] Mary Garcia, [facility]11 [...] Dermatology [address] [place] [address] Felter, Kayleigh A, TOLL COLLECTOR-ROTARY DRYER OPERATOR [address] [place] [address] 11/19/2025 10:50 AM EST Office Visit [facility] [address] [place] [address] SheldonKayleigh, TOLL COLLECTOR-ROTARY DRYER OPERATOR [address] [place] [address] documented as of this encounter Visit Diagnoses Not on filedocumented in this encounter Care Teams Deputy District Customs Director Relationship Specialty Start Date End Date Unallocated, Noms MD Mikey [address] [place] [address] PCP - General Family Medicine 04/20/25 Sarah Lopez DO [address] [place], [place] [address] Referring Physician Emergency Medicine 02/18/23 documented as of this encounter
--- OUTSIDE RECORDS SUMMARY | 2025-06-30 15:28 | XMS_ITS | Encounter Summary ---
Author Organization [facility] Address [address] [place] [address] Care Team Providers Care Substation Operator Transforming Name Role Phone Sarah Lopez DO Unavailable [phone] Unallocated, Noms Provider Primary Care Provi jung Encounter Details Date Type Department Care Team (Late Contact Info) Description 12/17/2024 Abstract SHAGUFTA Garcia OBGYN [address] [facility] [place] [phone] Malcolm Pendleton DO [address] [facility] [address] Mary Garcia, [facility]11 Social History Tobacco [...] Dermatology [address] [place] [address] Felter, Kayleigh A, ROTARY ENVELOPE MACHINE OPERATOR-NITRATING ACID MIXER [address] [place] [address] 11/19/2025 10:50 AM EST Office Visit [facility] [address] [place] [address] SheldonKayleigh, ROTARY ENVELOPE MACHINE OPERATOR-NITRATING ACID MIXER [address] [place] [address] documented as of this encounter Visit Diagnoses Not on filedocumented in this encounter Care Teams Substation Operator Transforming Relationship Specialty Start Date End Date Unallocated, Noms MD Mikey [address] [place] [address] PCP - General Family Medicine 04/20/25 Sarah Lopez DO [address] [place], [place] [address] Referring Physician Emergency Medicine 02/18/23 documented as of this encounter
--- OUTSIDE RECORDS SUMMARY | 2025-06-30 15:28 | XMS_ITS | Encounter Summary ---
Author Organization [facility] Address [address] [place] [address] Care Team Providers Care Roll Up Helper Name Role Phone Sarah Lopez DO Unavailable [phone] Unallocated, Noms Provider Primary Care Provi jung Encounter Details Date Type Department Care Team (Late Contact Info) Description 12/16/2024 Abstract SHAGUFTA Garcia OBGYN [address] [facility] [place] [address] Malcolm Pendleton DO [address] [facility] [address] Mary Garcia, [facility] Social History Tobacco Use Types Packs/Day Years [...] Dermatology [address] [place] [address] Felter, Kayleigh A, CLIENT SUPPORT ANALYST-BUTCHER ALL ROUND [address] [place] [address] 11/19/2025 10:50 AM EST Office Visit [facility] [address] [place] [address] SheldonKayleigh, CLIENT SUPPORT ANALYST-BUTCHER ALL ROUND [address] [place] [address] documented as of this encounter Visit Diagnoses Not on filedocumented in this encounter Care Teams Roll Up Helper Relationship Specialty Start Date End Date Unallocated, Noms MD Mikey [address] [place] [address] PCP - General Family Medicine 04/20/25 Sarah Lopez DO [address] [place], [place] [address] Referring Physician Emergency Medicine 02/18/23 documented as of this encounter
--- OUTSIDE RECORDS SUMMARY | 2025-06-30 15:28 | XMS_ITS | Encounter Summary ---
Author Organization [facility] Address [address] [address] Care Team Providers Care Medical Logistics Specialist Name Role Phone Sarah Lopez DO Unavailable [phone] Unallocated, Noms Provider Primary Care Provi jung Encounter Details Date Type Department Care Team (Late st Contact Info) Description 08/27/2024 Clinisync Result Encounter [facility] External Department Unsolicited Maira Pendleton, DO [address] [facility] [address] [place] [id number] Social History Tobacco Use Types Packs/Day Years [...] Office Visit [facility] [address] [place] [address] Kayleigh Chung, HIDE BUYER-FORMATION FRACTURING OPERATOR [address] [place] [address] 11/19/2025 10:50 AM EST Office Visit [facility] [address] [place] [address] SariahKayleigh mares, HIDE BUYER-FORMATION FRACTURING OPERATOR [address] [place] [address] documented as of this encounter Procedures Procedure Name Priority Date/Time Associated Diagnosis Comments US OB TRANSVAGINAL 08/27/2024 4: 27 AM EST documented in this encounter Results * US OB TRANSVAGINAL (08/27/2024 4:27 AM EST) Anatomical Region Laterality Modality Other 08/27/2024 4:27 AM EST Narrative 08/27/2024 4:30 [place] [address] Ultrasound Report Signed Patient: LISHA FONSECA MR#: [id number] : 1990 Acct:[id number] Age/Sex: 34 / F ADM Date: 08/26/24 Loc: [facility] Attending Dr: Maria Pendleton D.O. Ordering Physician: Maria Pendleton D.O. Date of Service: 08/26/24 Procedure(s): US OB transvaginal Accession Number(s): [id number] cc: Maria Pendleton D.O.; Physician,Non-Staff M.D. The [place] [id number] Patient Name: LISHA FONSECA MRN: [id number] date: 1990 Sex: F Assigned Patient Location: [facility] Current Patient Location: Accession/Order Number: [id number] Exam Date: 08/26/2024 08:59 Report Date: 08/27/2024 [...] M.D. Signed By: 08/27/24429 DD/ 6 TD/TT: Metal Machinist: Procedure Note Radiology, Radiologist, MD - 08/27/2024 [place] [address] Ultrasound Report Signed Patient: LISHA FONSECA GMR#: [id number] : 1990Acct:[id number] Age/Sex: 34 / FADM Date: 08/26/24 Loc: [facility] Attending Dr: Maria Pendleton D.O. Ordering Physician: Maria Pendleton D.O. Date of Service: 08/26/24 Procedure(s): US OB transvaginal Accession Number(s): [id number] cc: Maria Pendleton D.O.; Physician,Non-Staff Kacey The [place] [address] Patient Name: LISHA OFNSECA MRN: [id number] date: 1990 Sex: F Assigned Patient Location: [facility] Current Patient Location: Accession/Order Number: [id number] Exam Date: 08/26/2024 08:59 Report Date: 08/27/2024 [...] Miguel M.D. Signed By:08/27/24429 DD/ 6 TD/TT: Metal Machinist: us Maria Helder DO [facility] Final Result documented in this encounter Visit Diagnoses Not on filedocumented in this encounter Care Teams Medical Logistics Specialist Relationship Specialty Start Date End Date Unallocated, Noms Provider, [address] [place] [address] PCP - General Family Medicine 04/20/25 Sarah Lopez DO [address] [place] [address] Referring Physician Emergency Medicine 02/18/23 documented as of this encounter
--- OUTSIDE RECORDS SUMMARY | 2025-06-30 15:28 | XMS_ITS | Encounter Summary ---
Author Organization [facility] Address [address] [place] [address] Care Team Providers Care Acquisitions Analyst Name Role Phone Sarah Lopez DO Unavailable Unallocated, Noms Provider Primary Care Provi jung Encounter Details Date Type Department Care Team (Late Contact Info) Description 11/21/2024 Abstract SHAGUFTA Garcia OBGYN [address] [facility] [place] [phone] Malcolm Pendleton DO [address] [facility] [address] Mary Garcia, [facility] [...] Dermatology [address] [place] [address] Felter, Kayleigh A, FOOD ANALYST-SHEET CUTTER [address] [place] [address] 11/19/2025 10:50 AM EST Office Visit [facility] [address] [place] [address] SheldonKayleigh, FOOD ANALYST-SHEET CUTTER [address] [place] [address] documented as of this encounter Visit Diagnoses Not on filedocumented in this encounter Care Teams Acquisitions Analyst Relationship Specialty Start Date End Date Unallocated, Noms MD Mikey [address] [place] [address] PCP - General Family Medicine 04/20/25 Sarah Lopez DO [address] [place], [place] [address] Referring Physician Emergency Medicine 02/18/23 documented as of this encounter
--- OUTSIDE RECORDS SUMMARY | 2025-06-30 15:28 | XMS_ITS | Encounter Summary ---
Author Organization [facility] Address [address] [place] [address] Care Team Providers Care Fashion Artist Name Role Phone Sarah Lopez DO Unavailable [phone] Unallocated, Noms Provider Primary Care Provi jung Encounter Details Date Type Department Care Team (Late Contact Info) Description 11/21/2024 External Result Encounter [facility] [address] [address] Maria Pendleton DO [address] Mary Garcia, [facility]11 Social History Tobacco Use Types [...] Dermatology [address] [place] [phone] Felter, Kayleigh A, SLIP OPERATOR-CAN LINE OPERATOR [address] [place] [address] 11/19/2025 10:50 AM EST Office Visit [facility] [address] [place] [phone] Kayleigh Chung, SLIP OPERATOR-CAN LINE OPERATOR [address] [place] [address] documented as of this encounter Procedures Procedure Name Priority Date/Time Associated Diagnosis Comments US OB 14+ WEEKS ANATOMY SCAN 11/21/2024 3:40 PM EST documented in this encounter Results * US OB 14+ weeks anatomy scan (11/21/2024 3:40 PM EST) Anatomical Region Laterality Modality Body Ultrasound 11/21/2024 3:40 PM EST Narrative 11/21/2024 3:40 PM EST THIS EXAM WAS PERFORMED AT [facility] NAME: MARIAN HUSAIN : 1990 SEX: F Accession Number: [id number] ORDERING PHYSICIAN: TOREY MONTGOMERY REFERRING PHYSICIAN: MARIA PENDLETON Coding ----- --------- Procedures 43459: Ultrasound, uterus, real time with image documentation, and maternal evaluation plus detailed anatomic examination, transabdominal approach;single or first gestation 60501: Transvaginal Ultrasound (OB) Indication ----- --------- Screening [...] 0 lb 13 oz EFW by Hadlock ([id number]) Head / Face / Neck Biometry: Cephalic index 0.73 5% Nicolaides Cylinder Head Assembler 4.4 mm CM 4.2 mm 20% [...] Heart / Thorax RVOT view. LVOT view. 6-tyskli-wzigofd view. Bicaval view. Extremities / Left hand. [...] artery identified. Recommendations ----- --------- Please see [facility] documentation from today. The patient is scheduled in four to six week(s) to complete anatomic survey. Subsequent follow up or other follow up as clinically determined by primary OB provider unless otherwise specified by [facility]. Results forwarded to ordering provider so they can follow up with the patient as necessary. The copy-to physician of this order is MARIA Brito The ordering physician of this order is TOREY Pineda Procedure Note Radiology, Radiologist, MD - 11/21/2024 THIS EXAM WAS PERFORMED AT [facility] NAME: MARIAN HUSAIN : 1990 SEX: F Accession Number: [id number] ORDERING PHYSICIAN: TOREY MONTGOMERY REFERRING PHYSICIAN: MARIA PENDLETON Coding ----- --------- Procedures [id number]: Ultrasound, uterus, real time with imagedocumentation, and maternal evaluation plus detailed anatomic examination, transabdominalapproach;single or first gestation 45643: Transvaginal Ultrasound (OB) Indication ----- --------- Screening [...] 0 lb 13 oz EFW by Hadlock ([id number]) Head / Face / Neck Biometry: Cephalic index 0.73 5% Nicolaides Cylinder Head Assembler 4.4 mm CM 4.2 mm 20% [...] Heart / Thorax RVOT view. LVOT view. 0-qblble-dyiugli view. Bicavalview. Extremities / Left hand. Skeleton [...] artery identified. Recommendations ----- --------- Please see [facility] documentation from today. The patient is scheduled in four to six week(s) to complete anatomicsurvey. Subsequent follow up or other follow up as clinically determined byprimary OB provider unless otherwise specified by [facility]. Results forwarded to ordering provider so they can follow up with thepatient as necessary. The copy-to physician of this order is MARIA Brito The ordering physician of this order is TOREY Pineda us Maria Pendleton DO IMG OB US PROCEDURES Final Resul t documented in this encounter Visit Diagnoses Not on filedocumented in this encounter Care Teams Fashion Artist Relationship Specialty Start Date End Date Unallocated, Noms Provider, [facility] [place] [address] PCP - General Family Medicine 04/20/25 Sarah Lopez DO [address] [place] [address] Referring Physician Emergency Medicine 02/18/23 documented as of this encounter
--- OUTSIDE RECORDS SUMMARY | 2025-06-30 15:28 | XMS_ITS | Encounter Summary ---
Author Organization [facility] Address [address] [place] [address] Care Team Providers Care Screen Cutter And Trimmer Name Role Phone Sarah Lopez DO Unavailable [phone] Unallocated, Noms Provider Primary Care Provi jung Encounter Details Date Type Department Care Team (Late Contact Info) Description 11/24/2024 Abstract [facility] [address] [place] [phone] Malcolm Pendleton DO [address] Mary Garcia, [facility]11 Social History Tobacco Use Types Packs/Day [...] Dermatology [address] [place] [phone] Felter, Kayleigh A, CHIEF SCIENCE OFFICER-OTR VAN CDL TRUCK DRIVER [address] [place] [address] 11/19/2025 10:50 AM EST Office Visit [facility] [address] [place] [address] SheldonKayleigh, CHIEF SCIENCE OFFICER-OTR VAN CDL TRUCK DRIVER [address] [place] [address] documented as of this encounter Visit Diagnoses Not on filedocumented in this encounter Care Teams Screen Cutter And Trimmer Relationship Specialty Start Date End Date Unallocated, Noms MD Mikey [address] [place] [address] PCP - General Family Medicine 04/20/25 Sarah Lopez DO [address] [place], [place] [id number] Referring Physician Emergency Medicine 02/18/23 documented as of this encounter
--- OUTSIDE RECORDS SUMMARY | 2025-06-30 15:28 | XMS_ITS | Clinical Summary ---
Author Organization [facility] Address [address] [place] [address] Care Team Providers Care Transformation Specialist Name Role Phone Sarah Lopez DO Unavailable [phone] Unallocated, [facility] Provider MD Primary Care Provi jung Allergies Active Allergy Reactions Criticality Noted Date Comments Cefdinir 08/06/2024 Other Reaction(s): Unknown Reaction Other Reaction(s): Unknown Labetalol Other,Shortness of breath,Unknown High 02/07/2023 Other Reaction(s): Dizziness, loopiness, burning sensation in chest Other Reaction(s): Difficulty Breathing Other Reaction(s): Tongue swelling Labetalol Hcl Hives Low 02/18/2023 Methimazole 03/11/2023 Other Reaction(s): throat closing Other Reaction(s): anaphylaxis Medications valACYclovir (Valtrex) 500 MG tabletIndicatio ns:HSV (herpes simplex virus) infection Take 1 tablet (500 mg) by mouth Daily 30 tablet 12/30/2024 6 Active venlafaxine XR (Effexor XR) 75 MG 24 hr capsuleIndicati ons: depression Take 1 capsule (75 mg) by mouth Daily Do not crush or chew. 30 capsule 04/01/2025 6 Active Hospital, Clinic, or Other Facility Administered Medication Ordered Dose Route Frequency Start Date End Date Status Levonorgestrel intrauterine device 52 mgIndications:Encounter for IUD insertion 52 mg IU Continuous 05/21/2025 05/20/2030 Active Active Problems Problem Noted Date Diagnosed Date Mood disorder 03/23/2025 Resolved Problems Problem Noted Date Diagnosed Date Resolved Date 10 weeks gestation of ([facility]) 09/11/2024 03/25/2025 First trimester ([facility]) 09/11/2024 03/25/2025 Encounters Date Type Department Care Team Description 06/30/2025 11:20 AM [place] [address] Malcolm Pendleton DO Low grade squamous intraepithelial lesion (LGSIL) on Papanicolaou 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; Well woman exam with routine gynecological exam 06/30/2025 Bamboo flowsheet [facility] [place] [address] Malcolm Pendleton DO 05/22/2025 Abstract [facility] [address] [place] [phone] Marcelle Taylor NP 05/21/2025 9:30 AM EDT Procedure Visit [facility] [address] [place] [address] Malcolm Pendleton DO Encounter for IUD insertion 05/19/20[place] [address] Malcolm Pendleton DO 05/13/2025 9:30 [place] [address] Priscilla Warren PA 6 weeks follow-up ([facility]); Post depression ; Mood disorder ; depression 05/13/2025 [place] [address] Priscilla Warren PA 04/20/2025 3:10 PM EDT Office Visit [facility] [address] [place] [address] Brown, Gabino A, DPM Venous insufficiency (Primary Dx) 04/20/2025 Bamboo flowsheet [facility] [address] [place] [phone] Gabino Dodd DPM 04/01/2025 9:50 AM EDT Office Visit [facility] [address] [place] [address] Priscilla Warren PA Status post section; depression 04/01/2025 Bamboo flowsheet [facility] [address] [place] [address] Priscilla Warren PA 03/30/2025 Abstract [facility] [address] [place] [address] Malcolm Pendleton DO from Last 3 Months Family [...] Pressure 130/84 06/30/2025 11:29 AM EDT Pulse 83 03/11/2023 9:58 AM EDT Temperature 36.6 C (97.8 F) 03/11/2023 9:58 AM EDT Respiratory Rate 16 04/20/2025 2:42 PM EDT Oxygen Saturation 99% 03/11/2023 9:58 AM EDT Inhaled Oxygen Concentration - - Weight 84.1 kg (185 lb 8 oz) 06/30/2025 11:29 AM EDT Height 158.8 cm (5' 2.5 ) 04/20/2025 2:42 PM EDT Body Mass Index 33.39 04/20/2025 2:42 PM EDT Plan of Treatment Upcoming Encounters Date Type Department Care Team (Late st Contact Info) Description 07/06/2025 11:35 AM EDT Office Visit [facility] [address] [place] [phone] Kayleigh Chung SEARCH ENGINE MARKETING STRATEGIST-FILTER OPERATOR [address] [place] [address] 11/19/2025 10:50 AM EST Office Visit [facility] [address] [place] [phone] Kayleigh Chung SEARCH ENGINE MARKETING STRATEGIST-FILTER OPERATOR [address] [place] [address] Health Maintenance Due Date Last Done Comments HPV/Cotest 2022 Influenza Vaccine (#1) 2025 09/01/2021 Cervical Cancer Screening 10/14/2027 Pap Smear 10/14/2027 10/14/2024, 07/09/2023 Procedures Procedure Name Priority Date/Time Associated Diagnosis Comments POCT , URINE Routine 05/21/2025 10:03 AM EDT Encounter for IUD insertion OK INSERTION INTRAUTERINE DEVICE IUD Routine 05/21/2025 9:30 AM EDT Encounter for IUD insertion PAP SMEAR Routine 10/14/2024 12:00 AM EST from Last 3 Months or Most Recently Relevant to Health Maintenance Results * POCT , urine manually resulted (05/21/2025 10:03 AM EDT) Preg Test, Ur Negative Negative Urine 05/21/2025 10:0 3 AM EDT Result [facility] Malcolm Pendleton DO POINT OF CARE TEST ENTER/EDIT OR DERABLES Final Result * OK INSERTION INTRAUTERINE DEVICE IUD (05/21/2025 9:30 AM EDT) Narrative Maggy Sanz LPN - 05/21/2025 9:30 AM EDT Maggy Sanz LPN 05/21/2025 11:06 AM IUD Insertion Performed by: Malcolm Pendleton DO Authorized by: Malcolm Pendleton DO Procedure: IUD insertion Consent obtained by patient, parent, or legal power of traffic law attorney - including discussion of procedure risks and benefits, patient questions answered, and patient education provided: yes Date/Time of Insertion: 05/21/2025 10:34 AM Immediately prior to procedure a time out was called: yes Pelvic exam performed: no Speculum placed in vagina: yes Cervix cleaned and prepped: yes Tenaculum/Allis/Ring Forceps applied to cervix: yes Anesthesia used: no Cervix dilated: yes Cervix dilated with: Cervical os finder IUD inserted without complications: yes OSM: 52 mg Levonorgestrel 20 MCG/DAY Patient tolerated procedure well: yes Inserted with ultrasound guidance: no Transvaginal sono confirmed fundal placement: no Intended removal date: 5 years Malcolm Pendleton DO IN CLINIC/BEDSIDE ORDERABLES Fin al Result * Pap Smear (10/14/2024 12:00 AM EST) Swab Cervical swab / Unknown Priscilla [facility] ORDERABLES Final Re sult EXTERNAL LAB from Last 3 Months or Most Recently Relevant to Health Maintenance Insurance [employer] [facility] Care Teams Transformation Specialist Relationship Specialty Start Date End Date Unallocated, Noms Mikey, [address] [place] [address] PCP - General Family Medicine 04/20/25 Sarah Lopez DO [address] [place] [address] Referring Physician Emergency Medicine 02/18/23
--- OUTSIDE RECORDS SUMMARY | 2025-06-30 15:33 | XMS_ITS | CCD ---
Author Organization [facility] Inform ion Partnership [facility] Care Team Providers Care Command And Control Specialist Name Role Phone Unknown, Unknown Unavailable Unavailable Yudelka Lopez Unavailable Unavailable Unavailable BETTY Lopez Primary Care Provider [phone] DO Chris Greenwood Emergency Provider [phone] DO Jim Vega Emergency Provider MD Sly Crocker Attending Provider [phone] DO Frank Silva Emergency Provider BETTY Lopez Attending Provider MD Marvin Serrano Jr Emergency Provider BETTY Lopez Primary Care Provider DO Frank Silva Emergency Provider BETTY Lopez Primary Care Provider [phone] DO Frank Silva Emergency Provider NADYA Peraza Attending Provider [phone] DO Jim Vega Emergency Provider [phone] BETTY Lopez Primary Care Provider BETTY Lopez Attending Provider BETTY Lopez Referring Provider BETTY Hough Attending Provider MD Dayne Horton Attending Provider BETTY Lopez Lora Primary Care Provider NADYA Peraza Attending Provider DO Jim Vega Emergency Provider [phone] BETTY Lopez Lora Attending Provider MD Dayne Horton Attending Provider John, BETTY Paulino Referring Provider BETTY Hough Attending Provider BERTIN Vega Emergency Provider DR REBECCA GALVEZ Attending Unavailable FORREST, DR REBECCA Scott Admitting Unavailable BYRON, DR JUDGE Primary Care Unavailable FORREST, DR [...] MELL Consulting Unavailable LENI ANGEL Consulting Unavailable BYRON, DR JUDGE Primary Care Unavailable HELDER ., [...] Unavailable ZIEBER, DR KALPESH Scott Consulting Unavailable BYRON, DR JUDGE Primary Care Unavailable URI, DR JENN Wang Consulting Unavailable HELDER ., DR SIFUENTES Attending Unavailable HELDER ., DR SIFUENTES Admitting Unavailable HELDER ., DR SIFUENTES Consulting Unavailable MATTHEWS, DR JUDGE Primary Care Unavailable HELDER ., DR SIFUENTES Attending Unavailable HELDER ., DR SIFUENTES Admitting Unavailable HELDER ., DR SIFUENTES Consulting Unavailable ZIEBER, DR KALPESH Scott Consulting Unavailable HELDER ., DR SIFUENTES Consulting Unavailable HELDER ., DR SIFUENTES Attending Unavailable HELDER ., DR SIFUENTES Admitting Unavailable MISC, DR CAMPUZANO Primary Care Unavailable Dimitris, Imcatina Unavailable BETTY Lopez Primary Care Provider MD Jose Shanks Attending Provider MD Dayne Horton Referring Provider BETTY Lopez Primary Care Provider [phone] BETTY Lopez Attending Provider BETTY Lopez Referring Provider BETTY Hough Attending Provider BETTY Lopez Primary Care Provider [phone] DO Jim Vega Emergency Provider [phone] BETTY Lopez Referring Provider BETTY Hough Attending Provider BETTY Lopez Lora Referring Provider BETTY Hough Attending Provider Alfie Matthews Primary Care Physician BETTY Lopez Primary Care Provider MD Dayne Horton Attending Provider BETTY Lopez Referring Provider BETTY Hough Attending Provider Marvin Fontenot Unavailable BETTY Lopez Lora Referring Provider BETTY Hough Attending Provider BETTY Lopez Primary Care Provider WALDO LopezN Yudelka Paulino Referring Provider BETTY Hough Attending Provider John SWITCHGEAR REPAIRERFamilia Paulino Attending Provider BETTY Lopez Primary Care Provider WALDO LopezN Yudelka Paulino Referring Provider BETTY Hough Attending Provider John SWITCHGEAR REPAIRER Yudelka Paulino Primary Care Provider DO Yousif Sarah M Emergency Provider John HERNÁNDEZ Yudelka Griffine Primary Care Provider Yousif GOLDBERG Sarah M Emergency Provider Marvin Serrano MD Emergency Provider [phone] Julián Naqvi MD Admit Provider Julián Naqvi MD Attending Provider John DO, Sarah Unavailable Malcolm Pendleton DO Attending Provider John HERNÁNDEZ Yudelka Paulino Referring Provider Kelly Hough APRN Attending Provider Alfie Matthews MD Primary Care Provider [phone] No Pcp, No Pcp Primary Care Provider [...] NO PCP, NO PCP Primary Care Unavailable Lopez BETTY, Yudelka Paulino Referring Provider Kelly Hough APRN Attending Provider Byron ANTOINE, Alfie Primary Care Provider [phone] Kelvin DENTON, Priscilla Brothers Attending Provider NO FAMILY, PHYSICIAN Primary Care Provider Unava ilsurekha Wick SWITCHGEAR REPAIRER, Luisa Rincon Attending Provider John SWITCHGEAR REPAIRER, Yudelka Paulino Primary Care Provider Jim Vega DO Emergency Provider Unavailable Helder DO, Malcolm Attending Provider NON STAFF Primary Care Provider Unavaildamir e Unallocated MD, Noms Provider Primary Care Provi jung NO FAMILY, PHYSICIAN Primary Care Provider Unava brayan Kidd MD, Leandra Scott Emergency Provider DO Ramiro Whaley SJorge Attending Unavailable DO Ramiro Whaley Attending Unavailable Marcelle Ward Attending Provider John SWITCHGEAR REPAIRER, Yudelka Lora Referring Provider France HERNÁNDEZ, Kelly Lugo Attending Provider Byron ANTOINE, Alfie Primary Care Provider KELVIN, PRISCILLA Attending Unavailable HELDER, MALCOLM Attending Unavailable NARESH CHUNG Attending Unavailable KELVIN, PRISCILLA Attending Unavailable HELDER, MALCOLM Attending Unavailable REYNOLD LESLIE Attending Unavailable HELDER, MALCOLM Attending Unavailable KELVIN, PRISCILLA Attending Unavailable HELDER, MALCOLM Attending Unavailable HELDER, MALCOLM Attending Unavailable KELVIN, PRISCILLA Attending Unavailable KELVIN, PRISCILLA Attending Unavailable GABINO BLANDON Attending Unavailable KELVIN, PRISCILLA Attending Unavailable HELDER, MALCOLM Attending Unavailable HELDER, MALCOLM Attending Unavailable Helder, Malcolm Admitting Unavailable Helder, Malcolm Attending Unavailable Julián Naqvi Admitting Unavailab le Julián Naqvi Attending Unavailab Tam Carrera Unavailable Yudelka Lopez Primary Care Unavailable Yudelka Lopez Primary Care Unavailable Sarah Blandon Admitting Unavailable Sarah Blandon Attending Unavailable Jim Vega Admitting Unavailable Jim Vega Attending Unavailable Yudelka Lopze Primary Care Unavailable NO FAMILY, PHYSICIAN Primary Care Unavailable Leandra Kidd Admitting Unavailable Leandra Kidd Attending Unavailable NO FAMILY, PHYSICIAN Primary Care Unavailable Yudelka Lopez Referring Unavailable Marcelle Taylor Admitting Unavailable Marcelle Taylor Attending Unavailable Julián Naqvi Admitting Unavailab le Julián Naqvi Attending Unavailab le Yudelka Lopez Primary Care Unavailable NON STAFF Primary Care Unavailable Helder, Malcolm Admitting Unavailable Helder Malcolm Attending Unavailable NO FAMILY, PHYSICIAN Primary Care Unavailable Priscilla Warren Admitting Unavailable Priscilla Warren Attending Unavailable Allergies Allergy Classification Reported Allergen(s) Allergy Type Date of Onset Reaction(s) Facility (6 sources) Albuterol; Translations: [albuterol] Drug Allergy [id number] Work Phone: (20 sources) Labetalol; Translations: [Labetalol] Drug Allergy 2 Shortness of breath, Unknown, Other [facility] (10 sources) THYROID MEDICATION Allergy to substance 3 Rash [facility] (11 sources) methIMAzole; Translations: [METHIMAZOLE] Drug Allergy 4 anaphylaxis [facility] Repository (14 sources) methIMAzole Drug Allergy 5 anaphylaxis [employer] Other (20 sources) cefdinir; Translations: [CEFDINIR] Drug Allergy 4 Unknown, Unknown Reaction [facility] (20 sources) Labetalol; Translations: [LABETALOL HCL] Drug Allergy 3 Hives [facility] (20 sources) methIMAzole Drug Allergy 3 [facility] (20 sources) cefdinir Drug Allergy 4 [facility] (1 source) cefdinir Drug Allergy 5 [facility] Repository (1 source) methIMAzole Drug Allergy 5 [facility] Repository Medications Current Medications Medication Drug Class(es) Dates Sig (Normalized) Sig (Original) acetaminophen 325 mg / HYDROcodone bitartrate 5 mg oral tablet (6 sources) Opioid Agonist Start: 02-01-2025 Start: 12-30-2024 End: 01-04-2025 take 1 tablet by mouth every six hours for pain HYDROcodone-acetaminophen ([place]) 5-325 MG tablet Indications: HSV (herpes simplex [...] # 30 tab(s), Refills(s) 0, [facility], [facility], cm, 11/19/20 19:36:00 EST, Height/Length Dosing, 77, kg, 11/19/20 19:36:00 EST, Weight Dosing Start Date: 11/19/20 Status: Ordered amoxicillin 500 mg oral capsule (20 sources) Penicillin-class Antibacterial Start: 02-20-2025 End: 04-01-2025 take 2 capsules by mouth in the morning amoxicillin (Amoxil) 500 MG capsule Take 1,000 mg by mouth in the morning and 1,000 mg before bedtime. 02/20/2025 04/01/2025 Discontinued Start: 06-14-2020 End: 08-17-2020 take 1 capsule by mouth three times daily Amoxicillin 500 mg capsule Discontinued 500 MG PO Three times daily June 14, 2020 12:00am August 17, 2020 10:36am Start: 12-15-2018 End: 01-26-2019 take 1 capsule by mouth three times daily Amoxicillin 500 mg capsule Discontinued 500 MG PO Three times daily December 15, 2018 12:00am January 26, 2019 1:54pm azithromycin 500 mg oral tablet (2 sources) [...] D2 Compound Vitamin D (Ergocalciferol) 1.25 MG (29257 UT) Oral for 28 Days Active fluticasone 0.05 mg/inh Nasal [place] (2 sources) Start: 11-20-19 take 2 spray(s) nasal route once daily fluticasone 0.05 mg/inh Nasal [place] 2 spray(s), Nasal, Daily, 16 gram, Refill(s) 0, each nostril, [facility], 158, cm, 11/19/20 19:36:00 EST, Height/Length Dosing, 77, kg, 11/19/20 19:36:00 EST, Weight Dosing Start Date: 11/19/20 Status: Ordered folic acid 1 mg oral tablet (19 sources) Start: 05-22-20 take 1 tablet by mouth once daily Start: 09-28-2023 End: 11-24-2023 take 1 tablet by mouth once daily Folic Acid 1 mg Tablet Discontinued 1 MG PO Daily September 28, 2023 3:52pm November 24, 2023 8:54am labetalol hydrochloride 100 mg oral tablet (11 sources) beta-Adrenergic Marbin take 1 tablet by mouth twice daily labetalol (NORMODYNE) 100 mg tablet Take 100 mg by mouth 2 (two) times a day. Active levonorgestrel 0.938648 mg/hr intrauterine system (6 sources) Progestin, Progestin-containing Intrauterine Device Start: End: Levonorgestrel intrauterine device 52 mg Start: 05-21-2025 End: 05-21-2025 52 mg, Intrauterine, Once PA N Procedure, Starting on [place] 05/21/25 at 0930, For 1 dose End: 08-26-2024 Levonorgestrel (Mirena, 52 M G,) 20 MCG/DAY intrauterine device by Intrauterine route 08/26/2024 Discontinued (Other) magnesium oxide 400 mg oral tablet (20 sources) Start: 09-11-2024 End: 04-09-2025 take 1 tablet by mouth once daily magnesium oxide (Mag-Ox) 400 MG tablet Indications: Other headache syndrome Take 1 tablet (400 mg) by mouth Daily 30 tablet 6 11/04/2024 12/04/2024 Active [place] (No Known Home Meds) (2 sources) Start: 11-24-2023 [place] (No Kn own Home Meds) Active November 24, 2023 1:00am Start: 06-27-2023 [place] (No Kn own Home Meds) Active June [...] needed 08/08/2024 11/04/2024 Discontinued Start: 08-08-2024 End: 02-01-2025 take 1 tablet by mouth every six hours as needed for nausea and vomiting Ondansetron 4 mg Tablet,Disintegrating Discontinued 4 MG PO Every 6 hours as needed for Nausea And Vomiting August 08, 2024 1:00am February 01, 2025 11:44am Start: 07-14-2024 End: 08-08-2024 take 1 tablet [...] mg oral capsule (3 sources) Start: 09-15-20 End: 10-15-19 take 1 capsule by mouth once daily [...] days May, Active 25/iron fum/folic/dha (-1 ORAL) (11 sources) take 1 tablet by mouth once daily 25/iron fum/folic/dha (-1 ORAL) Take 1 tablet by mouth daily. Active Multivitamins with Folic Acid 1 mg and Docusate oral kit (2 sources) Start: 05-28-20 Multivitamins with Folic Acid 1 mg and Docusate oral kit Oral, Daily, Refill(s) 0, Prophylaxis Start Date: 05/28/19 Status: Ordered Vit No.604-Fhzo-Feqlv ( Vitamin) 27 mg iron- 800 mcg Tablet (5 sources) Start: 08-08-20 take 1 tablet by mouth once daily Start: 08-08-2024 take 1 tablet by shantel th once daily Vit No.166-Rohs-Jiwug ( Vitamin) 27 mg iron- 800 mcg Tablet Active 1 TAB PO Daily August 08, 2024 1:00am Start: 08-08-2024 take 1 tablet by shantel th once daily Vit No.933-Eomb-Kcpey ( Vitamin) 27 mg iron- 800 mcg [...] topical cream (20 sources) Corticosteroid Start: 11-20-2024 End: 04-01-2025 triamcinolone (Kenalog) 0.1 % cream Indications: Other atopic dermatitis Apply to affected areas, up to twice a day when flared, do not use one the face, groin, or underarms, 30 day supply 180 g 11/20/2024 04/01/2025 Discontinued Start: 11-18-2024 triamcinolone (Kenalog) 0.1 % cream [...] 30 day supply 454 g 11/18/2024 Active valACYclovir 500 mg oral tablet (20 sources) Herpesvirus Nucleoside Analog DNA Polymerase Inhibitor, Herpes Simplex Virus Nucleoside Analog DNA Polymerase Inhibitor, Herpes Zoster Virus Nucleoside Analog DNA Polymerase Inhibitor Start: 12-30-2024 End: 12-25-2025 24 hr venlafaxine 75 mg extended release oral capsule (17 sources) Serotonin and Norepinephrine Reuptake Inhibitor Start: 04-01-2025 End: 04-01-2026 take 1 capsule by mouth once daily venlafaxine XR (Effexor XR) 75 MG 24 hr capsule Indications: depression Take 1 capsule (75 mg) by mouth Daily Do not crush or chew. 30 capsule 04/01/2025 04/01/2026 Active Start: 11-04-2024 End: 03-23-2026 take 1 capsule by mouth once daily venlafaxine XR (Effexor XR) 37.5 MG 24 hr capsule Indications: Mood disorder Take 1 capsule (37.5 mg) by mouth Daily Do not crush or chew. 30 capsule 03/23/2025 03/23/2026 Active vitamin b12 1 mg oral tablet (1 source) Vitamin B12 Start: 05-22-2025 take 1 tablet by mouth once daily Zuranolone (Zurzuvae) 25 MG capsule (3 sources) Start: 05-13-2025 End: 05-27-2025 take 2 capsules by mouth once daily Zuranolone (Zurzuvae) 25 MG capsule Indications: Post depression , Mood disorder , depression Take 2 capsules by mouth Daily for 14 days 28 capsule 05/13/2025 05/27/2025 Active Completed/Discontinued Medications Medication Drug Class(es) Dates Sig (Normalized) Sig (Original) [id number] 200 actuat albuterol 0.09 mg/actuat metered dose [...] 02, 2022 1:00am January 02, 2023 10:29am aspirin 81 mg delayed release oral tablet [...] (Tri-Linyah) 0.18/0.215/0.25 mg-35 mcg (28) tablet Discontinued January 08, 2018 12:00am November 26, 2018 10:27pm Start: 01-08-2018 End: 11-26-2018 Norgestimate-Ethinyl Estradi ol (Tri-Linyah) 0.18/0.215/0.25 mg- 35 mcg (28) tablet Discontinued TABLET January 07, [...] 15, 2018 12:00am March 01, 2019 11:45am 60 actuat fluticasone propionate 0.05 mg/actuat dry powder inhaler (20 sources) Corticosteroid Start: 09-24-2023 End: 11-16-2023 Fluticasone Propionate 50 mcg/actuation Blister With Device Discontinued 1 INH INHALATION Daily September 24, 2023 1:00am November 16, 2023 6:40pm Start: 09-24-2023 End: 11-16-2023 Fluticasone Propionate Disco [...] 24, 2023 12:00am November 16, 2023 5:40pm hydrocortisone acetate 25 mg rectal suppository (14 sources) Corticosteroid Start: 02-06-2023 End: 10-11-2023 Hydrocortisone Acetate (Anusol-Hc) 25 mg suppository Discontinued 25 MG PA Daily 08 30February 06, 2023 12:00am June 27, 2023 10:32am hydrocortisone acetate 10 mg/ml / pramoxine hydrochloride 10 mg/ml rectal foam (20 sources) Corticosteroid Start: 06-01-2022 End: 09-21-2022 Hydrocortisone-Pram oxine (Proctofoam Hc) 1-1 % foam Discontinued 1 APPLIC PA Three times daily 06 23June 01, 2022 [...] Start: 03-02-2020 take 1 capsule by mo uth once daily linaclotide 145 mcg oral capsule 145 microgram = 1 cap(s), Oral, Daily, # 30 cap(s), Refills(s) 0, [facility], [address], cm, 03/02/20 13:33:00 EDT, Height/Length Measured, 79.9, kg, 03/02/20 13:33:00 EDT, Weight Measured Start Date: 03/02/20 Status: Ordered methylPREDNISolone 4 mg oral tablet (8 sources) Corticosteroid Start: 11-16-2023 End: 11-24-2023 take [...] 11-26-2018 Paroxetine Hcl 20 mg tablet Discontinued January 08, 2018 12:00am November 26, 2018 10:27pm Start: 01-08-2018 End: 11-26-2018 Paroxetine Hcl 20 mg tablet Discontinued TABLET January 08, 2018 12:00am November 26, 2018 10:27pm Start: 01-08-2018 End: 11-26-2018 Paroxetine Hcl Discontinued TABLET January 08, 2018 12:00am November 26, 2018 10:27pm Pnv,Calcium 89-Rtpz-Wmqyn Ac id ( Vitamin Plus Low Iron) 27 mg iron- 1 mg tablet (20 sources) Start: 03-01-2019 End: 12-11-2019 Pnv,Calcium 77-Ufdi-Ngoib Ac id ( Vitamin Plus Low Iron) 27 mg iron- 1 mg tablet Discontinued 27 MG PO Daily February 28, 2019 11:00pm December 11, 2019 8:47pm Start: 03-01-2019 End: 12-11-2019 Pnv,Calcium 73-Edjp-Cfrbs Ac id ( Vitamin Plus Low Iron) [...] of bedtime propylthiouracil 50 mg oral tablet (16 sources) Thyroid Hormone Synthesis Inhibitor Start: 02-06-2023 [...] Start: 06-01-2022 take 8 [oz_av] by mo [facility] twice daily Psyllium Seed (Sugar) (Metamucil (Sugar) Oral Powder) powder Active 1 TBSP PO Twice daily May 31, 2022 11:00pm mix into at least 8 oz of water or juice before administering Start: 06-01-2022 take 8 [oz_av] by mo [facility] twice daily Psyllium Seed (Sugar) (Metamucil (Sugar) Oral Powder) powder Active 1 TBSP PO Twice daily June 01, 2022 12:00am mix into at least 8 oz of water or juice before administering Problems Active Problems Problem Classification Problem Date Documented Da te Episodic/Chronic Adjustment disorders (6 sources) Grief finding; Translations: [Adjustment disorder with [...] (LGSIL)] 11-04-2024 Episodic Contraceptive and procreative management (4 sources) Sterilization requested; Translations: [Encounter for sterilization] Onset: 03-25-2025 01-27-2025 Episodic Deficiency and other anemia (20 sources) Iron deficiency anemia due to blood loss; Translations: [Iron deficiency anemia secondary to blood loss (chronic)] 10-03-2022 Chronic Deficiency and other anemia (15 sources) Iron deficiency anemia secondary to blood loss (chronic); Translations: [Iron deficiency anemia secondary to blood loss (chronic)] Onset: 06-10-2025 10-10-2022 Chronic Deficiency and other anemia (7 sources) Alpha trait thalassemia; 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] 12-09-2024 Chronic Deficiency and other anemia (2 sources) Thalassemia minor; 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] Onset: 12-12-2024 Chronic Deficiency and other anemia (2 sources) Carrier of alpha thalassemia; 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] 03-17-2025 Chronic Deficiency and other anemia (20 sources) Chronic anemia; Translations: [Anemia, unspecified] 03-15-2022 Episodic Deficiency and other anemia (20 sources) Anemia; Translations: [Anemia, unspecified] 09-21-2022 Episodic Deficiency and other anemia (11 sources) Nutritional anemia; Translations: [Vitamin B12 deficiency [...] Threatened miscarriage; Translations: [Threatened ] 03-01-2019 Episodic Hypertension complicating ; childbirth and the puerperium (2 sources) Pre-eclampsia; Translations: [Unspecified pre-eclampsia, third trimester] 03-17-2025 Episodic Immunizations and screening for infectious disease [...] period; Translations: [Irregular menstruation, unspecified] 08-26-2024 Chronic Miscellaneous mental health disorders (4 sources) depression; Translations: [ depression] 05-13-2025 Episodic Mood disorders (20 sources) Mood disorder; Translations: [Unspecified mood [affective] [...] risk pregnancies, unspecified trimester] 01-27-2025 Episodic Other complications of (1 source) Headache; Translations: [Other specified related conditions, unspecified trimester] 02-01-2025 Episodic Other connective tissue disease (18 sources) Foot pain; Translations: [Pain in left foot] 11-28-2022 Episodic Other diseases of veins and lymphatics (20 sources) Lymphedema; Translations: [Lymphedema, not elsewhere classified] 09-09-2019 Chronic Other diseases of veins and lymphatics (2 sources) Vascular insufficiency; Translations: [Venous insufficiency (chronic) (peripheral)] 04-20-2025 Episodic Other ear and sense organ disorders (20 [...] normal , unspecified, unspecified trimester] Onset: 09-11-2024 Resolved: 03-25-2025 01-26-2019 Episodic Other screening for suspected conditions [...] Acne vulgaris; Translations: [Acne vulgaris] 11-18-2024 Episodic Ovarian cyst (9 sources) Other ovarian [...] [32 weeks gestation of ] 02-11-2025 Episodic Residual codes; unclassified (2 sources) Gestation period, 34 weeks; Translations: [34 weeks gestation of ] 02-24-2025 Episodic Residual codes; unclassified (2 sources) Gestation period, 37 weeks; Translations: [37 weeks gestation of ] 03-17-2025 Episodic Residual codes; unclassified (3 sources) Edema of lower extremity; Translations: [Localized edema] 02-09-2025 Episodic Residual codes; unclassified (2 sources) Patient encounter status; Translations: [Procedure and treatment not carried out due to patient leaving prior to being seen by health care provider] 05-05-2025 Episodic Suicide and intentional self-inflicted injury (5 sources) Suicidal thoughts; Translations: [Suicidal ideations] 08-16-2024 [...] site not specified] 04-05-2019 Episodic Viral infection (7 sources) Herpes simplex; 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, unspecified] 12-30-2024 Episodic Past or Other Problems Problem Classification Problem Date Documented Da te Episodic/Chronic Abdominal pain (20 sources) Abdominal pain; Translations: [Unspecified abdominal pain] Onset: 04-20-2022 12-06-2020 Episodic Nutritional deficiencies (7 sources) Folic acid deficiency; Translations: [Deficiency of other specified B group vitamins] Onset: 01-28-2025 11-10-2024 Episodic Other complications of ; puerperium affecting management of mother (14 sources) 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 affecting obstetrical care; Translations: [Choroid plexus cyst of fetus affecting care of mother, antepartum, fetus 1] Onset: 11-21-2024 11-21-2024 Episodic Other complications of (16 sources) History of pre-eclampsia; Translations: [Supervision of [...] LUMP] Onset: 02-20-2022 Episodic Other hematologic conditions (17 sources) History of anemia; Translations: [Personal history [...] ACUTE POSTPROCEDURAL PAIN] Onset: 04-18-2022 Episodic Other upper respiratory infections (20 sources) Upper respiratory infection; Translations: [Acute upper respiratory infection, unspecified] Onset: 02-01-2025 12-11-2019 Episodic Previous (1 source) Maternal care for unspecified type scar from previous delivery; Translations: [Maternal care for unspecified type scar from previous delivery] Onset: 03-17-2019 Episodic Residual codes; unclassified (20 sources) Gestation period, 10 weeks; Translations: [10 weeks gestation of ] Onset: 09-11-2024 Resolved: 03-25-2025 09-11-2024 Episodic Unclassified (4 sources) Onset: 06-03-2015 Resolved: 08-17-2020 08-27-2020 NEGATED: Highlighted row has been ruled out!Unclassified (2 sources) No known active problems 05-15-2023 Results Test Name Value Interpretation Reference Range Facility HCG ( test) Ql (U)o n 05-21-2025 Interpretation and review of laboratory results Normal [facility] Preg Test, Ur Negative Negative Counts include 234 beds at the [facility] IUD Insertionon 05-21-2025 Maggy Sanz LPN 11:06 AM IUD Insertion Performed by: Malcolm Pendleton DO Authorized by: Malcolm Pendleton DO Procedure: IUD insertion Consent obtained by patient, parent, or legal power of energy attorney - including discussion of procedure risks [...] placement: no Intended removal date: 5 years Counts include 234 beds at the [facility] Basophils [#/volume] in Bloo d by Automated countOrdered By: Ingrid Esquivel on 05-07-2025 Basophils (Bld) [#/Vol] 0.0 10*3/uL Normal 0.0-0.2 [facility] Comment on above: Result Comment: PERF ORMED BY: [place] [address] [employer] SJ JEFFERSON M.D. Performed By: #### C BC, CONSTANTINO, [id number], FE and TIBC #### [place] [address] [place] #### HGB FRACT #### [facility] , Basophils/100 leukocytes in Blood by Automated countOrdered By: Ingrid Esquivel on 05-07-2025 Basophils/100 WBC (Bld) 0.7 % Normal . [facility] Comment on above: Performed By: #### C BC, CONSTANTINO, [id number], FE and TIBC #### [facility] [address] [place] [address] [place] #### HGB FRACT #### [facility] , Blood hemoglobin A2/total he moglobin by chromatography column (mass fraction)Ordered By: Ingrid Esquivel on 05-07-2025 Hemoglobin A2 Chromatography column (Bld) [Mass fraction] 2.2 % 1.8-3.2 [facility] Blood hemoglobin F/total hem oglobin ratio (mass fraction)Ordered By: Ingrid Esquivel on 05-07-2025 Hemoglobin F (Bld) [Mass fraction] 0.0 % 0.0-2.0 [facility] Blood hemoglobin pattern int erpretationOrdered By: Ingrid Esquivel on 05-07-2025 Hemoglobin pattern (Bld) [Interp] Comment . [facility] Comment on above: Normal hemoglobin pr esent; no hemoglobin variant or betathalassemia identified.Note: Alpha thalassemia may not be detected by the HgbFractionation [place] panel. If alpha thalassemia issuspected, [facility] offers Alpha-Thalassemia DNA Analysis(#[id number]).Performed at: [place] [id number] Director: Alan Macias PhD, Phone: [phone] Complete Blood Count Auto Di ffon 05-07-2025 Mean Corpuscular HGB Conc 31.4 g/dL Low 32.0-35.0 [facility] Comment on above: Performed By: #### C BC, CONSTANTINO, [id number], FE and TIBC #### [facility] [address] [place] [address] [place] #### HGB FRACT #### [facility] , NRBC% 0.0 /100{WBC} Normal 0-0.5 [facility] Comment on above: Performed By: #### C BC, CONSTANTINO, [id number], FE and TIBC #### [facility] [address] [place] [address] [place] #### HGB FRACT #### [facility] , White Blood Count 6.3 [CFU]/mL Normal 3.8-11.6 [facility] Comment on above: Performed By: #### C BC, CONSTANTINO, [id number], FE and TIBC #### [place] [address] [place] #### HGB FRACT #### [facility] , Eosinophils [#/volume] in Bl ood by Automated countOrdered By: Ingrid Esquivel on 05-07-2025 Eosinophils (Bld) [#/Vol] 0.1 10*3/uL Normal 0.0-0.45 [facility] Comment on above: Performed By: #### C BC, CONSTANTINO, [id number], FE and TIBC #### [address] #### HGB FRACT #### [facility] , Eosinophils/100 leukocytes i n Blood by Automated countOrdered By: Ingrid Esquivel on 05-07-2025 Eosinophils/100 WBC (Bld) 2.3 % Normal . [facility] Comment on above: Performed By: #### C BC, CONSTANTINO, [id number], FE and TIBC #### [place] [address] [place] #### HGB FRACT #### [facility] , Erythrocyte distribution wid th [Ratio] by Automated countOrdered By: Ingrid Esquivel on 05-07-2025 Erythrocyte distribution width (RBC) [Ratio] 13.5 % Normal 11.9-15.3 [facility] Comment on above: Performed By: #### C BC, CONSTANTINO, [id number], FE and TIBC #### [place] [address] [place] #### HGB FRACT #### [facility] , Erythrocytes [#/volume] in B lood by Automated countOrdered By: Ingrid Esquivel on 05-07-2025 RBC (Bld) [#/Vol] 4.66 10*6/uL Normal 3.60-5.00 [facility] Comment on above: Performed By: #### C BC, CONSTANTINO, [id number], FE and TIBC #### [facility] [address] #### HGB FRACT #### [facility] , Ferritin [Mass/volume] in Se rum or PlasmaOrdered By: Ingrid Esquivel on 05-07-2025 Ferritin [Mass/Vol] 29.6 ng/mL Normal 11.0-306.8 [facility] Comment on above: Performed By: #### A DDONUAPLUS, [id number], URDS #### [address] Folate [Mass/volume] in Seru m or PlasmaOrdered By: Ingrid Esquivel on 05-07-2025 Folate [Mass/Vol] 7.9 ng/mL >5.9 [facility] Comment on above: Folate reference ran ge: >5.9 ng/mlThe WHO technical consultation on folate and vitamin [id number] has determined that folate concentrations lessthan 4 ng/ml are considered deficient. HGB Frac Profileon Hemoglobin A 97.8 % Normal 96.4-98.8 [facility] Comment on above: Performed By: #### A DDONUAPLUS, UHCG, URDS #### [address] Hemoglobin A2 2.2 % Normal 1.8-3.2 [facility] Comment on above: Performed By: #### A DDONUAPLUS, UHCG, URDS #### [facility] [address] Hemoglobin F 0.0 % Normal 0.0-2.0 [facility] Comment on above: Performed By: #### A DDONUAPLUS, UHCG, URDS #### [address] Hemoglobin S Ql (Bld) 0.0 % Normal 0.0 [facility] Comment on above: Performed By: #### A JAROCHO, [facility], URDS #### [address] Hgb Frac Interpretation Comment Normal . [facility] Comment on above: Result Comment: Norm al hemoglobin present; no hemoglobin variant or beta thalassemia identified. Note: Alpha thalassemia may not be detected by the Hgb Fractionation [place] panel. If alpha thalassemia is suspected, [facility] offers Alpha-Thalassemia DNA Analysis (#[id number]). Performed at: [address] [id number] [employer] Operator: Alan Macias PhD, Phone: [phone] PERFORMED BY: [place] [address] [employer] SJ JEFFERSON M.D. Performed By: #### A JAROCHO, [facility], URDS #### [address] Hematocrit [Volume Fraction] of Blood by Automated countOrdered By: Ingrid Esquivel on 05-07-2025 Hematocrit (Bld) [Volume fraction] 34.1 % Normal 34.0-46.4 [facility] Comment on above: Performed By: #### C BC, CONSTANTINO, [id number], FE and TIBC #### [address] #### HGB FRACT #### [facility] , Hemoglobin A measurementOrde red By: Ingrid Esquivel on 05-07-2025 Hemoglobin A measurement 97.8 % 96.4-98.8 [facility] Hemoglobin S measurementOrde red By: Ingrid Esquivel on 05-07-2025 Hemoglobin S (Bld) [Mass fraction] 0.0 % 0.0 [facility] Hemoglobin [Mass/volume] in BloodOrdered By: Ingrid Esquivel on 05-07-2025 Hemoglobin (Bld) [Mass/Vol] 10.7 g/dL Low 11.8-15.4 [facility] Comment on above: Performed By: #### C BC, CONSTANTINO, [id number], FE and TIBC #### [facility] [address] [place] [address] [place] #### HGB FRACT #### [facility] , Iron [Mass/volume] in Serum or PlasmaOrdered By: Ingrid Esquivel on 05-07-2025 Iron [Mass/Vol] 51 ug/dL Normal 50-212 [facility] Comment on above: Performed By: #### C BC, CONSTANTINO, [id number], FE and TIBC #### [place] [address] [place] #### HGB FRACT #### [facility] , Iron and TIBC Profileon 04-18 % Iron Saturation 19.6 % Low 20-50 [facility] Comment on above: Performed By: #### C BC, CONSTANTINO, [id number], FE and TIBC #### [place] [address] [place] #### HGB FRACT #### [facility] , Total Iron Binding Capacity 260 ug/dL Normal 255-450 [facility] Comment on above: Performed By: #### C BC, CONSTANTINO, [id number], FE and TIBC #### [place] [address] [place] #### HGB FRACT #### [facility] , Leukocytes [#/volume] correc delmer for nucleated erythrocytes in Blood by Automated counOrdered By: Ingrid Esquivel on 05-07-2025 WBC corrected for nucl RBC Auto (Bld) [#/Vol] 6.3 10*3/uL 3.8-11.6 [facility] Leukocytes [#/volume] in Blo od by Automated countOrdered By: Ingrid Esquivel on 05-07-2025 WBC (Bld) [#/Vol] 6.3 10*3/uL Normal 3.8-11.6 [facility] Comment on above: Performed By: #### C BC, CONSTANTINO, [id number], FE and TIBC #### [place] [address] [place] #### HGB FRACT #### [facility] , Lymphocytes [#/volume] in Bl ood by Automated countOrdered By: Ingrid Esquivel on 05-07-2025 Lymphocytes (Bld) [#/Vol] 1.3 10*3/uL Normal 1.00-4.8 [facility] Comment on above: Performed By: #### C BC, CONSTANTINO, [id number], FE and TIBC #### [place] [address] [place] #### HGB FRACT #### [facility] , Lymphocytes/100 leukocytes i n Blood by Automated countOrdered By: Ingrid Esquivel on 05-07-2025 Lymphocytes/100 WBC (Bld) 21.0 % Normal . [facility] Comment on above: Performed By: #### C BC, CONSTANTINO, [id number], FE and TIBC #### [address] #### HGB FRACT #### [facility] , MCH [Entitic mass] by Automa delmer countOrdered By: Ingrid Esquivel on 05-07-2025 MCH (RBC) [Entitic mass] 23.0 pg Low 24.7-34.3 [facility] Comment on above: Performed By: #### C BC, CONSTANTINO, [id number], FE and TIBC #### [place] [address] [place] #### HGB FRACT #### [facility] , MCHC Auto (RBC) [Mass/Vol]Or dered By: Ingrid Esquivel on 05-07-2025 MCHC (RBC) [Mass/Vol] 31.4 g/dL Low 32.0-35.0 [facility] MCV [Entitic volume] by Auto mated countOrdered By: Ingrid Esquivel on 05-07-2025 MCV (RBC) [Entitic vol] 73.2 fL Low 80-100 [facility] Comment on above: Performed By: #### C BC, CONSTANTINO, [id number], FE and TIBC #### [facility] [address] [place] [address] [place] #### HGB FRACT #### [facility] , Monocytes [#/volume] in Bloo d by Automated countOrdered By: Ingrid Esquivel on 05-07-2025 Monocytes (Bld) [#/Vol] 0.4 10*3/uL Normal 0.0-0.8 [facility] Comment on above: Performed By: #### C BC, CONSTANTION, [id number], FE and TIBC #### [place] [address] [place] #### HGB FRACT #### [facility] , Monocytes/100 leukocytes in Blood by Automated countOrdered By: Ingrid Esquivel on 05-07-2025 Monocytes/100 WBC (Bld) 6.3 % Normal . [facility] Comment on above: Performed By: #### C BC, CONSTANTINO, [id number], FE and TIBC #### [place] [address] [place] #### HGB FRACT #### [facility] , Neutrophils [#/volume] in Bl ood by Automated countOrdered By: Ingrid Esquivel on 05-07-2025 Neutrophils (Bld) [#/Vol] 4.4 10*3/uL Normal 1.8-7.7 [facility] Comment on above: Performed By: #### C BC, CONSTANTINO, [id number], FE and TIBC #### [place] [address] [place] #### HGB FRACT #### [facility] , Neutrophils/100 leukocytes i n Blood by Automated countOrdered By: Ingrid Esquivel on 05-07-2025 Neutrophils/100 WBC (Bld) 69.7 % Normal . [facility] Comment on above: Performed By: #### C BC, CONSTANTINO, [id number], FE and TIBC #### [facility] [address] [place] [address] #### HGB FRACT #### [facility] , Nucleated erythrocytes [Pres ence] in Blood by Automated countOrdered By: Ingrid Esquivel on 05-07-2025 Nucleated RBC Auto Ql (Bld) 0.0 /100{WBC} 0-0.5 [facility] Platelet mean volume [Entiti c volume] in Blood by Automated countOrdered By: Ingrid Esquivel on 05-07-2025 Platelet mean volume (Bld) [Entitic vol] 9.1 fL Normal 6.3-10.7 [facility] Comment on above: Performed By: #### C BC, CONSTANTINO, [id number], FE and TIBC #### [address] #### HGB FRACT #### [facility] , Platelets [#/volume] in Bloo d by Automated countOrdered By: Ingrid Esquivel on 05-07-2025 Platelets (Bld) [#/Vol] 207 10*3/uL Normal 150-450 [facility] Comment on above: Performed By: #### C BC, CONSTANTINO, [id number], FE and TIBC #### [facility] [address] [place] [address] #### HGB FRACT #### [facility] , Serum or plasma iron binding capacity measurement (mass/volume)Ordered By: Ingrid Esquivel on 05-07-2025 Iron binding capacity [Mass/Vol] 260 ug/dL 255-450 [facility] Serum or plasma iron saturat ion measurement (mass fraction)Ordered By: Ingrid Esquivel on 05-07-2025 Iron saturation [Mass fraction] 19.6 % Low 20-50 [facility] Transferrin [Mass/volume] in Serum or PlasmaOrdered By: Ingrid Esquivel on 05-07-2025 Transferrin [Mass/Vol] 186 mg/dL Low 203-362 [facility] Comment on above: Performed By: #### C BC, CONSTANTINO, [id number], FE and TIBC #### [address] [place] [address] [place] #### HGB FRACT #### [facility] , Vit. B12/Folate Profileon Folate 7.9 ng/mL Normal >5.9 [facility] Comment on above: Result Comment: Breana te reference range: >5.9 ng/ml The WHO technical consultation on folate and vitamin b12 deficiencies has determined that folate concentrations less than 4 ng/ml are considered deficient. PERFORMED BY: [place] [address] [employer] SJ JEFFERSON M.D. Performed By: #### A JAROCHO, [facility], URDS #### [address] Vitamin B12 ser/plasOrdered By: Ingrid Esquivel on 05-07-2025 Cobalamin (Vitamin B12) [Mass/Vol] 541 pg/mL Normal 180-914 [facility] Comment on above: Performed By: #### A JAROCHO, KATHERYN, URDS #### [address] ED Clinical Summaryon 2024 ED Clinical Summary ED Clinical Summary [place] [id number] ED Clinical Summary Person Information Name: LEANDRA FONSECA [facility] Age: 34 Years : 1990 Sex: Female Language: Uzbek PCP: NONE, XXXX Marital Status: Single Phone: [phone] Visit Id: Visit Reason: Cough; Sinus Pain/Congestion; Throat pain - Adult; h/a chest pressure/throat pain Speciality: Acuity: 4 Enc Type: Emergency Med Service: Emergency Arrival: 05/06/2025 04:15:56 Discharge: 05/06/2025 05:24:56 LOS: 000 01:09 Checkin: 05/06/2025 04:15:56 Checkout: 05/06/2025 05:24:56 Dispo Type: Home (Routine DC) EVENTS: Event Name Event Status Request Date/Time Start Date/Time Complete Date/Time Arrive Complete 05/06/2025 04:15:56 05/06/2025 04:15:56 05/06/2025 04:15:56 Document Home Meds Request 05/06/2025 04:15:56 Triage Complete 05/06/2025 04:15:56 05/06/2025 04:27:35 05/06/2025 04:27:35 Dr Exam Complete 05/06/2025 04:18:35 05/06/2025 04:18:35 05/06/2025 04:18:35 Registration Complete 05/06/2025 04:18:35 05/06/2025 04:19:46 05/06/2025 04:23:13 EKG Complete 05/06/2025 04:19:31 05/06/2025 04:24:40 Bed Assign Complete 05/06/2025 04:19:46 05/06/2025 04:19:46 05/06/2025 04:19:46 RN Exam Complete 05/06/2025 04:19:46 05/06/2025 04:46:53 05/06/2025 04:46:53 Reg Complete Request 05/06/2025 04:23:13 X-Ray Complete 05/06/2025 04:30:43 05/06/2025 04:43:52 05/06/2025 04:58:23 Pending Labs Complete 05/06/2025 04:30:43 05/06/2025 05:14:06 Lab Complete 05/06/2025 04:30:43 05/06/2025 05:14:06 Swab Complete 05/06/2025 04:30:43 05/06/2025 05:14:06 Meds Admin Complete 05/06/2025 04:30:43 05/06/2025 04:44:21 Reg Bed Request Complete 05/06/2025 04:32:42 05/06/2025 04:32:42 05/06/2025 04:32:42 Wet Read Request 05/06/2025 04:58:23 Discharge Complete 05/06/2025 05:20:08 05/06/2025 05:25:03 05/06/2025 05:25:03 Transfer Complete 05/06/2025 05:25:03 05/06/2025 05:25:03 05/06/2025 05:25:03 ADDRESS: [facility] [place] [id number] PHYS DOC NOTES: MEDICAL INFORMATION: Prescriptions Given: New Medications [facility], [address] [facility] [address] [place] [id number], [phone] brompheniramine/dextrometho rphan/PSE (Bromfed DM oral syrup) 5 Milliliter By Mouth 4 times a day as needed for cough and congestion. Refills: 0. Medications to Continue with No Changes Other Medications cetirizine (All Day Allergy 10 mg oral tablet) 1 Tablets By Mouth every day. Refills: 0. fluticasone nasal (fluticasone 0.05 mg/inh Nasal [place]) 2 Sprays Nasal Inhalation every day. each nostril. Refills: 0. linaclotide (linaclotide 145 mcg oral capsule) 1 Capsules By Mouth every day. Refills: 0. multivitamin, ( Multivitamins with Folic Acid 1 mg and Docusate oral kit) By Mouth every day. PATIENT EDUCATION INFORMATION: Instructions: Upper Respiratory Infection, Adult Follow up: With: Address: When: Negin [address] [place] [phone] Business (1) In 3 days 05/09/2025 DIAGNOSIS: Acute URI Normal [facility] ED Note-Physicianon 05-06-20 ED Note-Physician ED Note-Physician Basic Information Time Seen: Ramiro Whaley DO 05/06/2025 04:18 Chief Complaint pt ot ED with c/o cough and congestion. states runny nose and sore throat. also states ear pain and chills. states symptoms over last couple days. denies signigicant PMH. kids also sick per pt. History of Present Illness HPI: Patient is a 34-year-old female who presents to the ED for cough, congestion. Patient states for the past few days she started to have a cough intermittently productive of some mucus. She has a associated sore throat as well as nasal congestion and intermittent ear congestion. She has had chills but is unsure of any fevers. She reports that her kids were recently ill. She reports taking ibuprofen earlier tonight. ROS: Pertinent review of systems conducted and is negative except as noted above. Physical exam: General: nontoxic appearing and in no distress HEENT: Mucous membranes moist. No tonsillar exudate or enlargement. Uvula is midline. Handling secretions without difficulty. TMs clear bilaterally. Neuro: awake and alert Neck: supple, trachea midline Card: Heart regular rate and rhythm no murmur Resp: Lungs clear to auscultation no wheeze or rhonchi Abd: Soft and nondistended. No tenderness to palpation with no rebound or guarding. Ext: No gross deformity or edema Physical Exam Vitals & Measurements T: 36.7 ???C(Oral) HR: 81(Peripheral) RR: 16 BP: 129/76 SpO2: 100% HT: 160 cm WT: 81.4 kg BMI: 31.8 Medical Decision Making MEDICAL DECISION MAKING Number and Complexity of Problems Differential Diagnosis: [] [facility] Data External documents reviewed: N/A My EKG interpretation: Noted in chart if applicable My CT interpretation: N/A My X-ray interpretation: Noted in chart if applicable My Ultrasound interpretation: N/A Decision rules/scores evaluated: N/A Discussed with: N/A Treatment and Disposition ED Course: Patient is well-appearing and in no distress. She is afebrile here in the ED. Patient presenting with URI symptoms. We will obtain a chest x-ray as well as COVID and flu swabs. Will give her oral Tylenol as well as Bromfed. COVID and flu are both negative. Chest x-ray shows no acute process. I discussed the diagnosis of URI with the patient. Will give her a prescription for Bromfed. We discussed supportive measures with oral hydration and rest as well as egxg-kvd-ddeqtto Tylenol and Motrin as needed patient will follow-up with her primary care physician. Shared decision making: As above Code status: N/A Assessment/Plan Acute URI (J06.9: Acute upper respiratory infection, unspecified) Orders: acetaminophen, 650 mg = 2 tab(s), Tab, Oral, Once PRN Pain, STAT, Start date 05/06/25 4:30:00 EDT, 05/06/25 4:30:00 EDT brompheniramine/dextrometho rphan/PSE, 5 mL, Oral, QID for cough and congestion, 200 mL, Refill(s) 0, [facility]28, 160, cm, 05/06/25 4:27:00 EDT, Height/Length Dosing, 81.4, kg, 05/06/25 4:27:00 EDT, Weight Dosing brompheniramine/dextrometho rphan/PSE, 5 mL, Syrup, Oral, Once PRN for cough and congestion, STAT, Start date 05/06/25 4:30:00 EDT ECG 12 Lead Adult Influenza A&B Ag Rapid COVID Antigen ([facility]) XR Chest Single View Medications Administered Given acetaminophen 325 mg Tab, 650 mg, Oral Bromfed DM oral syrup, 5 mL, Oral Disposition Plan Discharge Prescription List Prescriptions Bromfed DM oral syrup, 5 mL, Oral, QID, PRN Follow-up With When Contact Information Negin Ruff In 3 days 05/09/2025 EDT [address] [place] [address] [phone] Business (1) Additional Instructions: Patient Education Upper Respiratory Infection, Adult Problem List/Past Medical History Ongoing Heart murmur ELIU (iron deficiency anemia) Nausea and vomiting Historical Procedure/Surgical History Colonoscopy (02/12/2020), Esophagogastroduodenoscopy (02/12/2020), delivery (09/03/2019), delivery, None. Medications Inpatient acetaminophen 325 mg Tab, 650 mg= 2 tab(s), Oral, Once, PRN Bromfed DM oral syrup, 5 mL, Oral, Once, PRN Home All Day Allergy 10 mg oral tablet, 10 mg= 1 tab(s), Oral, Daily fluticasone 0.05 mg/inh Nasal [place], 2 spray(s), Nasal, Daily linaclotide 145 mcg oral capsule, 145 mcg= 1 cap(s), Oral, Daily, Not taking Multivitamins with Folic Acid 1 mg and Docusate oral kit, Oral, Daily, Not taking Allergies cefdinir (Unknown) labetalol (Tongue swelling) Social History Alcohol - Denies Alcohol Use, 10/09/2010 Current, 05/16/2019 Current, 12/19/2018 Employment/School Employed, Student, 11/08/2010 Other Caffeine: Coffee/ Pepsi 2x a month, 05/28/2019 Substance Abuse - Denies Substance Abuse, 10/09/2010 Current, 05/16/2019 Current, 12/19/2018 Tobacco - Denies Tobacco Use, 10/09/2010 Never (less than 100 in lifetime) Tobacco Use:. Never Smokeless Tobacco Use:., 11/19/2020 Never (less than 100 in lifetime) Tobacco Use:. Never S (more content not included)... Normal [facility] Comment on above: Result Comment: Elec tronically Signed By: Ramiro Whaley DO\.br\Date and Time Signed: 05/06/25 05:21 EDT ED Patient Summaryon 025 ED Patient Summary ED Patient Summary [address] [address] Patient Discharge Instructions Person Information Name: LEANDRA FONSECA Age: 34 Years Arrival Date: 05/06/2025 04:15:56 Discharge Diagnosis: Acute URI Primary Care Physician: NONE, XXXX Provider Information Primary Provider: Ramiro Whaley DO [employer] As[employer]er:None The exam and treatment you received in the Emergency Department were for an urgent problem and are not intended as complete care. It is important that you follow up with a doctor, nurse practitioner, or physician???s children's nursery assistant for ongoing care. If your symptoms become worse or you do not improve as expected and you are unable to reach your usual health care provider, you should return to the Emergency Department. We are available 24 hours a day. LEANDRA FONSECA has been given the following list of patient education materials, prescriptions and follow-up instructions: Follow-up Instructions: With: Address: When: Negin Ruff [address] [place] [address] [place], [place] [phone] Business (1) In 3 days 05/09/2025 In the event that this physician does not participate in your insurance network, please consult with your insurance company to find a nearby participating provider. Patient Education Materials: Upper Respiratory Infection, Adult A MESSAGE TO ALL PATIENTS REGARDING OPIOIDS PRESCRIPTION OPIOIDS: WHAT YOU NEED TO KNOW Prescription opioids can be used to help relieve gwoysltz-cd-mtjvmv pain and are often prescribed following a surgery or injury, or for certain health conditions. These medications can be an important part of the treatment but also come with serious risks. It is important to work with your healthcare provider to make sure you are getting the safest, most effective care. WHAT ARE THE RISKS AND SIDE EFFECTS OF OPIOID USE? Prescription opioids carry serious risks of addiction and overdose, especially with prolonged use. An opioid overdose, often marked by slowed breathing, can cause sudden . The use of prescription opioids can have a number of side effects as well, even when taken as directed: ??? Tolerance???meaning you might need to take more of the medication for the same pain relief ??? Physical dependence???meaning you have symptoms of withdrawal when a medication is stopped ??? Increased sensitivity to pain ??? Constipation ??? Nausea, vomiting, and dry mouth ??? Sleepiness and dizziness ??? Confusion ??? Depression ??? Low levels of testosterone that can result in lower sex drive, energy, and strength ??? Itching and sweating RISKS ARE GREATER WITH: ??? History of drug misuse, substance use disorder, or overdose ??? Mental health conditions (such as depression or anxiety) ??? Sleep apnea ??? Older age (65 years and older) ??? Avoid alcohol while taking prescription opioids. Also, unless specifically advised by your health care provider, medications to avoid include: ??? Benzodiazepines (such as Xanax or Valium) ??? Muscle relaxants (such as Soma or Flexeril) ??? Hypnotics (such as Ambien or Lunesta) ??? Other prescription opioids KNOW YOUR OPTIONS Talk to your health care provider about ways to manage your pain that don???t involve prescription opioids. Some of these options may actually work better and have fewer risks and side effects. Options may include: ??? Pain relievers such as acetaminophen, ibuprofen, and naproxen ??? Some medication that are also used for depression or seizures ??? Physical therapy and exercise ??? Cognitive behavioral therapy, a psychological, goal-directed approach, in which patients learn how to modify physical, behavioral, and emotional triggers of pain and stress. IF YOU ARE PRESCRIBED OPIOIDS FOR PAIN: ??? Never take opioids in greater amounts or more often than prescribed. ??? Follow up with your primary health care provider. o Work together to create a plan on how to manage your pain. o Talk about ways to help manage your pain that don???t involve prescription opioids. o Talk about any and all concerns and side effects. ??? Help prevent misuse and abuse o Never sell or share prescription opioids. o Never use another person???s prescription opioids. ??? Store prescription opioids in a secure place and out of reach of others (this may include visitors, children, friends, and family). ??? Safely dispose of unused prescription opioids: Find your community drug take-back program or your pharmacy mail-back program, or flush them down the toilet, following guidance from the Food and Drug Administration (www.fda.gov/Drugs/Resource sForYou). ??? Visit www.cdc.gov/drugoverdose to learn about the risks of opioids abuse and overdose. ??? If you believe you may be struggling with addiction, tell your health animal caregiver and ask for guid (more content not included)... Normal [facility] Influenza A&B Agon Influenzae A Ag Negative Normal Negative [facility] Comment on above: Performed By: #### 1 [id number] #### [facility] Laboratory [address] [place] [address] Influenzae B Ag Negative Normal Negative [facility] Comment on above: Result Comment: Test sensitivity and specificity vary for age group, specimen type, antigen types, and prevalence of disease. Test results must be evaluated in conjunction with other clinical data available to the physician. Individuals who received nasally administered Influenza A vaccine may have positive test results up to 3 days after vaccination. Performed By: #### 1 [id number] #### [facility] [address] [place] [address] Rapid COVID Antigen ([facility])on 05-06-2025 Rapid COV Int NEG Ctl Pass Normal [facility] Comment on above: Performed By: #### 2 [id number] #### [facility] [address] [place] [address] Rapid COV Int POS Ctl Pass Normal [facility] Comment on above: Performed By: #### 2 [id number] #### [facility] [address] [place] [address] SARS-CoV-2 (COVID-19) RNA HIRAM+probe Ql (Unsp spec) Not detected Normal Not Detected [facility] Comment on above: Result Comment: The BD Veritor??? System for Rapid Detection of SARS-CoV-2 is a chromatographic digital immunoassay intended for the direct and qualitative detection of SARS-CoV-2 nucleocapsid antigens in nasal swabs from individuals who are suspected of COVID-19 by their healthcare provider within the first five days of the onset of symptoms. Negative results should be treated as presumptive, do not rule out SARS-CoV-2 infection and should not be used as the sole basis for treatment or patient management decisions, including infection control decisions. Negative results should be considered in the context of a patient???s recent exposures, history and the presence of clinical signs and symptoms consistent with COVID-19, and confirmed with a molecular assay, if necessary, for patient management. For in vitro diagnostic use. In the [place], only for use under an Emergency Use Authorization. In the [place], this test has not been FDA cleared or approved; this test has been authorized by FDA under an EUA for use by authorized laboratories; use by laboratories certified under the CLIA, 42 U.S.C. ???263a, that meet requirements to perform moderate, high, or waived complexity tests and at the Point of Care (POC), i.e., in patient care settings operating under a CLIA Certificate of Waiver, Certificate of Compliance, or Certificate of Accreditation. This test has been authorized only for the detection of proteins from SARS-CoV-2, not for any other viruses or pathogens; and, in the [place], this test is only authorized for the duration of the declaration that circumstances exist justifying the authorization of emergency use of in vitro diagnostics for detection and/or diagnosis of the virus that causes COVID-19 under Section 564(b)(1) of the Act, 21 U.S.C. ??? 360bbb-3(b)(1), unless the authorization is terminated or revoked sooner. Performed By: #### 2 [id number] #### [facility] [address] [place] [address] XR Chest Single Viewon 05-06 XR Chest Single View Exam Date/Time: 05/06/2025 04:58 EDT Reason for Exam: Cough Report IMPRESSION: No acute findings by portable radiography. EXAMINATION/TECHNIQUE: XR Chest Single View HISTORY: Cough. Congestion. COMPARISON: 10/18/2016. RESULT: No consolidation. No pleural effusion. No pneumothorax. Normal cardiomediastinal silhouette. No acute osseous findings. Ordering Provider: Ramiro Whaley FINAL REPORT Dictated: 05/06/2025 10:14 am Lisandro Ferrera MD Signed (Electronic Signature): 05/06/2025 10:14 am Signed by: Lisandro Ferrera MD Transcribed by: CANDY Technologist: OLGA LIDIA Galvez [facility] ECG 12 lead ECGon 05-05-2025 ECG 12 lead ECG [facility] Main [place] [id number] Electrocardiograph Report Signed Patient: Leandra Fonseca MR#: [id number] : 1990 Acct:[id number] Age/Sex: 34 / F ADM Date: 05/05/25 Loc: ER Room: Type: [facility] ER Attending Dr: Ordering Provider: Leandra Kidd MD Date of Service: 05/05/25 ECG/ECG 12 lead ECG: Chest Pain Copies to: Test Reason : Blood Pressure : */* mmHG Vent. Rate : 80 BPM Atrial Rate : 80 BPM P-R Int : 154 ms QRS Dur : 80 ms QT Int : 382 ms P-R-T Axes : 74 72 46 degrees QTcB Int : 440 ms Normal sinus rhythm Confirmed by Leandra Kidd MD ([id number]) on 05/05/2025 6:59:08 AM Referred By: Electronically Signed By: Leandra Kidd MD Transcribed By: MUS Signed By Leandra Kidd MD 04/17 06/11 0659 Normal [facility] XR chest 2V*on 05-05-2025 XR chest 2V* [facility] Main [address] [address] XRay Report Signed Patient: Leandra Fonseca MR#: [id number] : 1990 Acct:[id number] Age/Sex: 34 / F ADM Date: 05/05/25 Loc: ER Room: Type: [facility] ER Attending Dr: Copies to: Leandra Kidd MD Ordering Provider: Leandra Kidd MD Date of Service: 05/05/25 XR/XR chest 2V*: Chest Pain PA AND LATERAL CHEST: CLINICAL HISTORY: Chest pressure, sore throat COMPARISON: 11/24/2023 FINDINGS: Unremarkable cardiomediastinal. Lungs clear. No effusion or pneumothorax XR/XR chest 2V* IMPRESSION: NO ACUTE CARDIOPULMONARY ABNORMALITY. Impression dictated by: Girma Muro M.D. 05/05/2025 8:30 AM Dictation Location: [place] [address] Transcribed By: [facility] 05/05/25829 Dictated By: Girma Muro MD 05/05/25829 Signed By: 05/05/25 0830 Normal [facility] ALL CBC WITH AUTO DIFFon BASOPHILS ABSOLUTE AUTO 0 [employer] [facility] Basophils/100 WBC (Bld) 0.1 % Low 0.2 - 2.0 % [facility] Eosinophils/100 WBC (Bld) 0 % Low 0.9 - 7.0 % [facility] Erythrocyte distribution width (RBC) [Ratio] 13.6 % 11.0 - 15.0 % [facility] Hematocrit (Bld) [Volume fraction] 29.5 % Low 36.0 - 48.0 % [facility] Hemoglobin (Bld) [Mass/Vol] 9.2 g/dL Low 12.0 - 16.0 g/dL [facility] IMMATURE GRANULOCYTES ABS AUTO 0.06 High [facility] Immature granulocytes/100 WBC (Bld) 0.4 % 0.0 - 0.5 % [facility] Interpretation and review of laboratory results Abnormal [facility] LYMPHOCYTES ABSOLUTE AUTO 0.9 Low [facility] Lymphocytes/100 WBC (Bld) 6.2 % Low 20.5 - 60.0 % [facility] MCH (RBC) [Entitic mass] 23.8 pg Low 26.7 - 34.0 pg [facility] MCHC (RBC) [Mass/Vol] 31.2 g/dL 29.9 - 35.2 g/[facility] MCV (RBC) [Entitic vol] 76.2 fL Low 81.0 - 99.0 fL [facility] MONOCYTES ABSOLUTE AUTO 1 High [facility] Monocytes/100 WBC (Bld) 6.4 % 1.7 - 12.0 % [facility] NEUTROPHILS ABSOLUTE AUTO 13.2 High [facility] Neutrophils/100 WBC (Bld) 86.9 % High 43.0 - 75.0 % [facility] Platelet mean volume (Bld) [Entitic vol] 13.2 fL 9.5 - 13.5 fL [facility] TBH EO # 0 [facility] TB PLT 160 [facility] RBC 3.87 Low [facility] WBC 15.2 High [facility] ALL CBC WITH AUTO DIFFon BASOPHILS ABSOLUTE AUTO 0 [facility] Basophils/100 WBC (Bld) 0.3 % 0.2 - 2.0 % [facility] Eosinophils/100 WBC (Bld) 0.8 % Low 0.9 - 7.0 % [facility] Erythrocyte distribution width (RBC) [Ratio] 13.9 % 11.0 - 15.0 % [facility] Hematocrit (Bld) [Volume fraction] 31.9 % Low 36.0 - 48.0 % [facility] Hemoglobin (Bld) [Mass/Vol] 10 g/dL Low 12.0 - 16.0 g/dL [facility] IMMATURE GRANULOCYTES ABS AUTO 0.03 [facility] Immature granulocytes/100 WBC (Bld) 0.4 % 0.0 - 0.5 % [facility] Interpretation and review of laboratory results Abnormal [facility] LYMPHOCYTES ABSOLUTE AUTO 1 Low [facility] Lymphocytes/100 WBC (Bld) 13.2 % Low 20.5 - 60.0 % [facility] MCH (RBC) [Entitic mass] 24 pg Low 26.7 - 34.0 pg [facility] MCHC (RBC) [Mass/Vol] 31.3 g/dL 29.9 - 35.2 g/dL [facility] MCV (RBC) [Entitic vol] 76.5 fL Low 81.0 - 99.0 fL [facility] MONOCYTES ABSOLUTE AUTO 0.6 [facility] Monocytes/100 WBC (Bld) 7.2 % 1.7 - 12.0 % [facility] NEUTROPHILS ABSOLUTE AUTO 6.1 [facility] Neutrophils/100 WBC (Bld) 78.1 % High 43.0 - 75.0 % [facility] Platelet mean volume (Bld) [Entitic vol] 12.6 fL 9.5 - 13.5 fL [facility] TBH EO # 0.1 [facility] TBH PLT 152 [facility] TB RBC 4.17 Low [facility] WBC 7.8 [facility] Tone 03-25-2025 L ------- Specimen: [id number] Received: 03/26/25 Status: RONAK Montoya Num: [id number] Spec Type: Surgical Subm Dr: Malcolm Pendleton Tissues: A Fallopian Tube - Sterilization (BILATERAL FALLOPIAN TUBES) Procedures: DIMITRI/Chuck De Leon/Rai L2 Age/ Patient Sex Location Account Attending Physician Leandra Fonseca 34/F LABELL [id number] Malcolm Pendleton SPEC NUM: [id number] RECD: 03/26/25 STATUS: RONAK MONTOYA NUM: [id number] JERROD: 03/25/[address]: Malcolm Pendleton ENTERED: 03/26/25 [facility] DR: Johnathan Garcia SPEC TYPE: Surgical DEPT: ILEANA MUÑIZ ENTERED BY: [id number] RECV BY: [id number] ORDERED: HE/3, Gross/Micro L2 ORDERED: HE/3, Gross/Micro L2 Pathological Diagnosis Bilateral fallopian tubes, bilateral tubal ligation: - Completely transected the bilateral fallopian tubes with no significant histopathology. Clinical Information Repeat section, request for sterilization Gross Description Received in formalin labeled with the patients name, date of , and bilateral fallopian tubes are bilateral, non-oriented fallopian tubes with fimbriated distal ends, 7.5 x 0.8 cm, and 8 x 1 cm. The serosa is kwan-purple, smooth and glistening. The shorter segment is inked black. Serial sections reveal pinpoint lumen within each segment. Cassettes: A1 Entirety of trisected fimbriated end from longer segment A2 Entirety of serially sectioned fimbriated end from shorter segment (inked black) A3 Cross-sections of bilateral fallopian tube segments (shorter tube inked black) (3, ,HE09-522 A)GRETEL Specimen: [id number] Received: 03/26/25 Status: RONAK Montoya Num: [id number] Spec Type: Surgical Subm Dr: Malcolm Pendleton Tissues: A Fallopian Tube - Sterilization (BILATERAL FALLOPIAN TUBES) Procedures: HE/3, Gross/Micro L2 Patient: Leandra Fonseca [id number] (Continued) Specimen: [id number] Received: 03/26/25 (Continued) Signed (signature on file) Tesfaye Molina MD 03/27/25 0937 Specimen: [id number] Received: 03/26/25 Status: RONAK Montoya Num: [id number] Spec Type: Surgical Subm Dr: Malcolm Pendleton Tissues: A Fallopian Tube - Sterilization (BILATERAL FALLOPIAN TUBES) Procedures: HE/3, Chuck/Rai L2 Patient: Leandra Fonseca [id number] (Continued) Specimen: [id number] Received: 03/26/25 (Continued) Microscopic Description Microscopic examination is performed. CPT Codes 87002 Specimen: [id number] Received: 03/26/25 Status: RONAK Montoya Num: [id number] Spec Type: Surgical Subm Dr: Malcolm Pendleton Tissues: A Fallopian Tube - Sterilization (BILATERAL FALLOPIAN TUBES) Procedures: HE/3, Gross/Micro L2 Patient: HomeroLeandra [id number] (Continued) Signed (signature on file) Tesfaye Molina MD 03/27/25 0937 Normal [facility] US OB BPP W NON-STRESS on 03-19-2025 [place] [address] Ultrasound Report Signed Patient: LEANDRA FONSECA MR#: [id number] : 1990 Acct:[id number] Age/Sex: 34 / F ADM Date: 03/19/25 Loc: [facility] 250-[address]: Malcolm Pendleton D.O. Ordering Physician: Malcolm Pendleton D.O. Date of Service: 03/19/25 Procedure(s): US OB BPP w non-stress Accession Number(s): [id number] cc: Malcolm Pendleton D.O.; Physician,Non-Staff K[place] [id number] Patient Name: LEANDRA FONSECA MRN: [id number] date: 1990 Sex: F Assigned Patient Location: [facility] Current Patient Location: [facility] Accession/Order Number: [id number] Exam Date: 03/19/2025 11:38 Report Date: 03/19/2025 11:40 At the request of: MALCOLM PENDLETON DO [...] Miller M.D. 03/19/2025 11:40 AM Dictation Location: [place] [address] Electronically authenticated by: [id number] Y Date: 03/19/2025 11:40 Dictated By: Michell Miller M.D. Signed By: 03/19/25 1142 DD/ 1140 TD/TT: Delivery Coordinator: [facility] Radiology, Radiologi MD brandy - 03/19/2025 [place] [address] Ultrasound Report Signed Patient: LEANDRA FONSECA MR#: [id number] : 1990 Acct:[id number] Age/Sex: 34 / F ADM Date: 03/19/25 Loc: [place] [address]: Malcolm Pendleton D.O. Ordering Physician: Malcolm Pendleton D.O. Date of Service: 03/19/25 Procedure(s): US OB BPP w non-stress Accession Number(s): [id number] cc: Malcolm Pendleton D.O.; Physician,Non-Staff [place] [id number] Patient Name: LEANDRA FONSECA MRN: [facility]:[id number] date: 1990 Sex: F Assigned Patient Location: [facility] Current Patient Location: [facility] Accession/Order Number: [id number] Exam Date: 03/19/2025 11:38 Report Date: 03/19/2025 11:40 At the request of: MALCOLM PENDLETON DO [...] Miller M.D. 03/19/2025 11:40 AM Dictation Location: [place] [address] Electronically authenticated by: [id number] Y Date: 03/19/2025 11:40 Dictated By: Michell Miller M.D. Signed By: 03/19/25 1142 DD/ 1140 TD/TT: Delivery Coordinator: [facility] Radiology Study observation (narrative) [facility] OB BPP W NON-STRESS Ordered By: Radiologist Radiology on 03-19-2025 [facility] Work Phone: Urinalysis macro (dipstick) panel (U)on 03-17-2025 Bilirubin, UA Negative Negative - 4(70) +++ mg/dL [facility] Blood, UA Positive Negative - 50 Hong/mcL [facility] Comment on above: trace Clarity, UA Clear [facility] Color, UA Yellow [facility] Glucose, UA Negative Negative - 2000(110) ++++ mg/dL [facility] Interpretation and review of laboratory results Abnormal [facility] Ketones, UA Negative Negative - 160(16) ++++ mg/dL [facility] Leukocytes, UA Many Negative - 500+++ Iqra/mcL [facility] Comment on above: large Nitrite, UA Negative Negative - Positive [facility] pH, UA 7 5 - 9 [facility] Protein, UA Negative Negative - 1999(20) ++++ mg/dL [facility] Spec Grav, UA 1.01 1 - 1.03 [facility] Urobilinogen, UA 1.0 0.2 - 12 mg/dL [facility] OB BPP W NON-STRESS on 03-12-2025 [place] [address] Ultrasound Report Signed Patient: LEANDRA FONSECA MR#: [id number] : 1990 Acct:[id number] Age/Sex: 34 / F ADM Date: 03/12/25 Loc: [facility] 250-[address]: Malcolm Pendleton D.O. Ordering Physician: Malcolm Pendleton D.O. Date of Service: 03/12/25 Procedure(s): US OB BPP w non-stress Accession Number(s): [id number] cc: Malcolm Pendleton D.O.; Physician,Non-Staff M.DJorge The [place] [address] Patient Name: LEANDRA FONSECA MRN: [id number] date: 1990 Sex: F Assigned Patient Location: US Current Patient Location: US Accession/Order Number: [id number] Exam Date: 03/12/2025 11:52 Report Date: 03/12/2025 11:54 At the request of: MALCOLM PENDLETON DO [...] Miller M.D. 03/12/2025 11:54 AM Dictation Location: [place] [address] Electronically authenticated by: [id number] Y Date: 03/12/2025 11:54 Dictated By: Michell Miller M.D. Signed By: 03/12/25 1156 DD/ 1154 TD/TT: Delivery Coordinator: [facility] Radiology, Radiologi MD brandy - 03/12/2025 [place] [address] Ultrasound Report Signed Patient: LEANDRA FONSECA MR#: [id number] : 1990 Acct:[id number] Age/Sex: 34 / F ADM Date: 03/12/25 Loc: [facility] 250-[address]: Malcolm Pendleton D.O. Ordering Physician: Malcolm Pendleton D.O. Date of Service: 03/12/25 Procedure(s): US OB BPP w non-stress Accession Number(s): [id number] cc: Malcolm Pendleton D.O.; Physician,Non-Staff Kacey [place] [phone] Patient Name: LEANDRA FONSECA MRN: [facility]:[id number] date: 1990 Sex: F Assigned Patient Location: Current Patient Location: US Accession/Order Number: [id number] Exam Date: 03/12/2025 11:52 Report Date: 03/12/2025 11:54 At the request of: MALCOLM PENDLETON DO [...] Miller M.D. 03/12/2025 11:54 AM Dictation Location: [place] [address] Electronically authenticated by: [id number] Y Date: 03/12/2025 11:54 Dictated By: Michell Miller M.D. Signed By: 03/12/25 1156 DD/ 1154 TD/TT: Delivery Coordinator: [facility] Radiology Study observation (narrative) [facility] US OB BPP W NON-STRESS Ordered By: Radiologist Radiology on 03-12-2025 [facility] Work Phone: US OB BPP W NON-STRESS on 03-05-2025 [place] [address] Ultrasound Report Signed Patient: LEANDRA FONSECA MR#: [id number] : 1990 Acct:[id number] Age/Sex: 34 / F ADM Date: 03/05/25 Loc: [facility] 254-[address]: Malcolm Pendleton D.O. Ordering Physician: Malcolm Pendleton D.O. Date of Service: 03/05/25 Procedure(s): US OB BPP w non-stress Accession Number(s): [id number] cc: Malcolm Pendleton D.O.; Physician,Non-Staff Kacey [place] [phone] Patient Name: LEANDRA FONSECA MRN: [id number] date: 1990 Sex: F Assigned Patient Location: [facility] Current Patient Location: [facility] Accession/Order Number: [id number] Exam Date: 03/05/2025 12:01 Report Date: 03/05/2025 12:03 At the request of: MALCOLM PENDLETON DO [...] Miller M.D. 03/05/2025 12:03 PM Dictation Location: [place] [address] Electronically authenticated by: [id number] Y Date: 03/05/2025 12:03 Dictated By: Michell Miller M.D. Signed By: 03/05/25 1205 DD/ 1203 TD/TT: Delivery Coordinator: [facility] Radiology, Radiologi MD brandy - 03/05/2025 [place] [address] Ultrasound Report Signed Patient: LEANDRA FONSECA MR#: [id number] : 1990 Acct:[id number] Age/Sex: 34 / F ADM Date: 03/05/25 Loc: [facility] 254-[address]: Malcolm Pendleton D.O. Ordering Physician: Malcolm Pendleton D.O. Date of Service: 03/05/25 Procedure(s): US OB BPP w non-stress Accession Number(s): [id number] cc: Malcolm Pendleton D.O.; Physician,Non-Staff Kacey [place] [id number] Patient Name: LEANDRA FONSECA MRN: [id number] date: 1990 Sex: F Assigned Patient Location: [facility] Current Patient Location: [facility] Accession/Order Number: [id number] Exam Date: 03/05/2025 12:01 Report Date: 03/05/2025 12:03 At the request of: MALCOLM PENDLETON DO [...] Miller M.D. 03/05/2025 12:03 PM Dictation Location: [place] [address] Electronically authenticated by: [id number] Y Date: 03/05/2025 12:03 Dictated By: Michell Miller M.D. Signed By: 03/05/251204 DD/ 02 TD/TT: Delivery Coordinator: [facility] Radiology Study observation (narrative) [facility] OB BPP W NON-STRESS Ordered By: Radiologist Radiology on 03-05-2025 [facility] Work Phone: US OB BPP W NON-STRESS on 02-26-2025 [place] [address] Ultrasound Report Signed Patient: LEANDRA FONSECA MR#: [id number] : 1990 Acct:[id number] Age/Sex: 34 / F ADM Date: 02/26/25 Loc: US Attending Dr: Malcolm Pendleton D.O. Ordering Physician: Malcolm Pendleton D.O. Date of Service: 02/26/25 Procedure(s): US OB BPP w non-stress Accession Number(s): [id number] cc: Malcolm Pendleton D.O.; Physician,Non-Staff Kacey [place] [phone] Patient Name: LEANDRA FONSECA MRN: [facility]:[id number] date: 1990 Sex: F Assigned Patient Location: US Current Patient Location: [facility] Accession/Order Number: [id number] Exam Date: 02/26/2025 13:13 Report Date: 02/26/2025 13:13 At the request of: MALCOLM PENDLETON DO Procedure: US OB BPP w non-stress Biophysical profile. Reason for exam: LGA. COMPARISON: BPP 02/19/2025. TECHNIQUE: Transabdominal imaging of the gravid uterus was obtained. FINDINGS: Parts Room Assistant reports a BPP of 8 out of 8. VIDA is normal at 16.4 cm. heart rate 135 bpm. US/US OB BPP w non-stress IMPRESSION: BPP 8 out of 8. Impression dictated by: Leroy Mancera Jr., D.O. 02/26/2025 1:13 PM Dictation Location: [place] [address] Electronically authenticated by: [id number] Y Date: 02/26/2025 13:13 Dictated By: Leroy Mancera M.D. Signed By: 02/26/25 7475 DD/ 1313 TD/TT: Delivery Coordinator: [facility] Radiology, Radiologi MD brandy - 02/26/[address] [address] Ultrasound Report Signed Patient: LEANDRA FONSECA MR#: [id number] : 1990 Acct:[id number] Age/Sex: 34 / F ADM Date: 02/26/25 Loc: US Attending Dr: Malcolm Pendleton D.O. Ordering Physician: Malcolm Pendleton D.O. Date of Service: 02/26/25 Procedure(s): US OB BPP w non-stress Accession Number(s): [id number] cc: Malcolm Pendleton D.O.; Physician,Non-Staff Kacey [place] [address] Patient Name: LEANDRA FONSECA MRN: [id number] date: 1990 Sex: F Assigned Patient Location: US Current Patient Location: ED.MAIN Accession/Order Number: [id number] Exam Date: 02/26/2025 13:13 Report Date: 02/26/2025 13:13 At the request of: MALCOLM PENDLETON DO Procedure: US OB BPP w non-stress Biophysical profile. Reason for exam: LGA. COMPARISON: BPP 02/19/2025. TECHNIQUE: Transabdominal imaging of the gravid uterus was obtained. FINDINGS: Parts Room Assistant reports a BPP of 8 out of 8. VIDA is normal at 16.4 cm. heart rate 135 bpm. US/US OB BPP w non-stress IMPRESSION: BPP 8 out of 8. Impression dictated by: Leroy Mancera Jr., D.O. 02/26/2025 1:13 PM Dictation Location: [place] [address] Electronically authenticated by: [id number] Y Date: 02/26/2025 13:13 Dictated By: Leroy Mancera M.D. Signed By: 02/26/25 1332 DD/ 1313 TD/TT: Delivery Coordinator: [facility] Radiology Study observation (narrative) [facility] US OB BPP W NON-STRESS Ordered By: Radiologist Radiology on 02-26-2025 [facility] Work Phone: Urinalysis macro (dipstick) panel (U)on 02-24-2025 Bilirubin, UA Negative Negative - 4(70) +++ mg/dL [facility] Blood, UA Positive Negative - 50 Hong/mcL [facility] [facility] Comment on above: trace-intact Clarity, UA Clear [facility] Color, UA Yellow [facility] Glucose, UA Negative Negative - 2000(110) ++++ mg/dL [facility] Interpretation and review of laboratory results Abnormal [facility] Ketones, UA Negative Negative - 160(16) ++++ mg/dL [facility] Leukocytes, UA Positive Negative - 500+++ Iqra/mcL [facility] Comment on above: large Nitrite, UA Negative Negative - Positive [facility] pH, UA 7 5 - 9 [facility] Protein, UA Negative Negative - 2000(20) ++++ mg/dL [facility] Spec Grav, UA 1.02 1 - 1.03 [facility] Urobilinogen, UA 1.0 0.2 - 12 mg/dL Counts include 234 beds at the [facility] US OB BPP W NON-STRESS on 02-19-2025 [place] [address] Ultrasound Report Signed Patient: LEANDRA FONSECA MR#: [id number] : 1990 Acct:[id number] Age/Sex: 34 / F ADM Date: 02/19/25 Loc: [place] [address]: Malcolm Pendleton D.O. Ordering Physician: Malcolm Pendleton D.O. Date of Service: 02/19/25 Procedure(s): US OB BPP w non-stress Accession Number(s): [id number] cc: Malcolm Pendleton D.O.; Physician,Non-Staff M.Izabela The [address] [address] Patient Name: LEANDRA FONSECA MRN: [id number] date: 1990 Sex: F Assigned Patient Location: [facility] Current Patient Location: [facility] Accession/Order Number: [id number] Exam Date: 02/19/2025 11:27 Report Date: 02/19/2025 11:29 At the request of: MALCOLM PENDLETON DO [...] Miller M.D. 02/19/2025 11:29 AM Dictation Location: [place] [address] Electronically authenticated by: [id number] Y Date: 02/19/2025 11:29 Dictated By: Michell Miller M.D. Signed By: 02/19/25 1131 DD/ 1129 TD/TT: Delivery Coordinator: [facility] Radiology, Radiologi MD brandy - 02/19/2025 [place] [address] Ultrasound Report Signed Patient: LEANDRA FONSECA MR#: [id number] : 1990 Acct:[id number] Age/Sex: 34 / F ADM Date: 02/19/25 Loc: [facility] 250-[address]: Malcolm Pendleton D.O. Ordering Physician: Malcolm Pendleton D.O. Date of Service: 02/19/25 Procedure(s): US OB BPP w non-stress Accession Number(s): [id number] cc: Malcolm Pendleton D.O.; Physician,Non-Staff [place] [address] Patient Name: LEANDRA FONSECA MRN: [facility]:[id number] date: 1990 Sex: F Assigned Patient Location: [facility] Current Patient Location: [facility] Accession/Order Number: [id number] Exam Date: 02/19/2025 11:27 Report Date: 02/19/2025 11:29 At the request of: MALCOLM PENDLETON DO [...] Miller M.D. 02/19/2025 11:29 AM Dictation Location: [place] [address] Electronically authenticated by: [id number] Y Date: 02/19/2025 11:29 Dictated By: Michell Miller M.D. Signed By: 02/19/25 1131 DD/ 1129 TD/TT: Delivery Coordinator: [facility] Radiology Study observation (narrative) [facility] US OB BPP W NON-STRESS Ordered By: Radiologist Radiology on 02-19-2025 [facility] Work Phone: US OB BPP W NON-STRESS on 02-12-2025 [place] [address] Ultrasound Report Signed Patient: LEANDRA FONSECA MR#: [id number] : 1990 Acct:[id number] Age/Sex: 34 / F ADM Date: 02/12/25 Loc: [facility] 250-[address]: Malcolm Pendleton D.O. Ordering Physician: Malcolm Pendleton D.O. Date of Service: 02/12/25 Procedure(s): US OB BPP w non-stress Accession Number(s): [id number] cc: Malcolm Pendleton D.O.; Physician,Non-Staff [place] [address] Patient Name: LEANDRA FONSECA MRN: [id number] date: 1990 Sex: F Assigned Patient Location: [facility] Current Patient Location: [facility] Accession/Order Number: [id number] Exam Date: 02/12/2025 09:04 Report Date: 02/12/2025 09:06 At the request of: MALCOLM PENDLETON DO Procedure: US OB BPP w non-stress BIOPHYSICAL PROFILE: CLINICAL INFORMATION: HISTORY OF LABOR COMPARISON: None There is a single live intrauterine gestation in cephalic presentation. The reported gestational age is 32 weeks 4 days. The heart rate [id number] beats per minute. FINDINGS: TONE: 1 or [...] Miller M.D. 02/12/2025 9:06 AM Dictation Location: [place] [address] Electronically authenticated by: [id number] Y Date: 02/12/2025 09:06 Dictated By: Michell Miller M.D. Signed By: 02/12/25907 DD/ 5 TD/TT: Delivery Coordinator: [facility] RadiologyModestaogruchi nava MD - 02/12/2025 [place] [address] Ultrasound Report Signed Patient: LEANDRA FONSECA MR#: [id number] : 1990 Acct:[id number] Age/Sex: 34 / F ADM Date: 02/12/25 Loc: [facility] 250-[address]: Malcolm Pendleton D.O. Ordering Physician: Malcolm Pendleton D.O. Date of Service: 02/12/25 Procedure(s): US OB BPP w non-stress Accession Number(s): [id number] cc: Malcolm Pendleton D.O.; Physician,Non-Staff [place] [address] Patient Name: LEANDRA FONSECA MRN: [facility]:[id number] date: 1990 Sex: F Assigned Patient Location: [facility] Current Patient Location: [facility] Accession/Order Number: [id number] Exam Date: 02/12/2025 09:04 Report Date: 02/12/2025 09:06 At the request of: MALCOLM PENDLETON DO Procedure: US OB BPP w non-stress BIOPHYSICAL PROFILE: CLINICAL INFORMATION: HISTORY OF LABOR COMPARISON: None There is a single live intrauterine gestation in cephalic presentation. The reported gestational age is 32 weeks 4 days. The heart rate [id number] beats per minute. FINDINGS: TONE: 1 or [...] Miller M.D. 02/12/2025 9:06 AM Dictation Location: [place] [address] Electronically authenticated by: [id number] Y Date: 02/12/2025 09:06 Dictated By: Michell Miller M.D. Signed By: 02/12/25907 DD/ 5 TD/TT: Delivery Coordinator: [facility] Radiology Study observation (narrative) [facility] US OB BPP W NON-STRESS Ordered By: Radiologist Radiology on 02-12-2025 [facility] Work Phone: Urinalysis macro (dipstick) panel (U)on 02-11-2025 Bilirubin, UA Negative Negative - 4(70) +++ mg/dL [facility] Blood, UA Negative Negative - 50 Hong/mcL [facility] Clarity, UA Clear [facility] Color, UA Yellow [facility] Glucose, UA Negative Negative - 2000(110) ++++ mg/dL [facility] Interpretation and review of laboratory results Normal [facility] Ketones, UA Negative Negative - 160(16) ++++ mg/dL [facility] Leukocytes, UA Negative Negative - 500+++ Iqra/mcL [facility] Nitrite, UA Negative Negative - Positive [facility] pH, UA 7 5 - 9 [facility] Protein, UA Negative Negative - 2000(20) ++++ mg/dL [facility] Spec Grav, UA 1.025 1 - 1.03 [facility] Urobilinogen, UA 1.0 0.2 - 12 mg/dL Counts include 234 beds at the [facility] Appearance of UrineOrdered B y: Jim Vega on 02-01-2025 Appearance (U) Clear Normal Clear [facility] Comment on above: Order Comment: Name Collection Type:: Clean-Voided Midstream Performed By: #### C OVID19 FLU RSV, CEPHEID NEG #### [facility] [address] Bacteria [Presence] in Urine by AutomatedOrdered By: Jim Vega on 02-01-2025 Bacteria Auto Ql (U) 1+ [HPF] High None Seen [facility] Basic Metabolic Panelon 01-15 Creatinine Clr Calc Pharmacy 164.96 Normal [facility] Comment on above: Result Comment: PERF ORMED BY: [place] [address] PATH[employer] TRISTEN MOSELEY M.D. Performed By: #### B MP, CBC #### [facility] [address] [place] [address] GFR/1.73 sq M.predicted MDRD (S/P/Bld) [Vol rate/Area] mL/min/{1.73_m2} Normal [facility] Comment on above: Performed By: #### B MP, CBC #### [address] Basophils [#/volume] in Bloo d by Automated countOrdered By: Jim Vega on 02-01-2025 Basophils (Bld) [#/Vol] 0.0 10*3/uL Normal 0.0-0.2 [facility] Comment on above: Result Comment: PERF ORMED BY: [place] [address] [employer] TRISTEN MOSELEY M.D. Performed By: #### B MP, CBC #### [address] Basophils/100 leukocytes in Blood by Automated countOrdered By: Jim Vega on 02-01-2025 Basophils/100 WBC (Bld) 0.3 % Normal . [facility] Comment on above: Performed By: #### B MP, CBC #### [address] Bilirubin Test strip Ql (U)O rdered By: Jim Vega on 02-01-2025 Bilirubin Ql (U) Negative Negative [facility] BioFire Detectedon BioFire Detected Detected Critically abnormal Not Detecte [facility] Comment on above: Result Comment: This is a duplicate RP2.1 COVID (PCR) result to be used for statistical tracking purpose only. PERFORMED BY: [place] [address] [employer] TRISTEN MOSELEY M.D. Performed By: #### C OVID19 FLU RSV, CEPHEID NEG #### [address] COVID-19 Detected/Not Detect edOrdered By: Jim Vega on 02-01-2025 SARS-CoV-2 (COVID-19) RNA HIRAM+non-probe Ql (Nph) Detected Abnormal Not Detecte [facility] Comment on above: This is a duplicate RP2.1 COVID (PCR) result to be used for statistical tracking purpose only. Calcium [Mass/volume] in Ser um or PlasmaOrdered By: Jim Vega on 02-01-2025 Calcium [Mass/Vol] 7.9 mg/dL Low 8.6-10.3 [facility] Comment on above: Performed By: #### B MP, CBC #### [address] Carbon dioxide, total [Moles /volume] in Serum or PlasmaOrdered By: Jim Vega on 02-01-2025 CO2 [Moles/Vol] 21.3 mmol/L Normal 21.0-31.0 [facility] Comment on above: Performed By: #### B MP, CBC #### [address] Chloride [Moles/volume] in S salas or PlasmaOrdered By: Jim Vega on 02-01-2025 Chloride [Moles/Vol] 107 mmol/L Normal 98-107 [facility] Comment on above: Performed By: #### B MP, CBC #### [place] [address] [place] Color of Urine by AutoOrdere d By: Jim Vega on 02-01-2025 Color (U) Light-yellow Normal Yellow [facility] Comment on above: Order Comment: Name Collection Type:: Clean-Voided Midstream Performed By: #### C OVID19 FLU RSV, CEPHEID NEG #### [address] Complete Blood Count Auto Di ffon 02-01-2025 Mean Corpuscular HGB Conc 32.1 g/dL Normal 32.0-35.0 [facility] Comment on above: Performed By: #### B MP, CBC #### [place] [address] [place] Monocytes/100 WBC (Bld) 20.57 % High 0.00-20.00 [facility] Comment on above: Result Comment: For adults in ED, MDW > 20.0 may be associated with a higher risk of sepsis during the first 12 hrs of hospital admission Performed By: #### B MP, CBC #### [address] NRBC% 0.1 /100{WBC} Normal 0-0.5 [facility] Comment on above: Performed By: #### B MP, CBC #### [address] Creatinine [Mass/volume] in Serum or PlasmaOrdered By: Jim Vega on 02-01-2025 Creatinine [Mass/Vol] 0.51 mg/dL Low 0.60-1.20 [facility] Comment on above: Performed By: #### B MP, CBC #### [place] [address] [place] Dipstick and Microscopicon 0 02-01-2025 Bacteria,Urine 1+ High None Seen [facility] Comment on above: Order Comment: Name Collection Type:: Clean-Voided Midstream Performed By: #### C OVID19 FLU RSV, CEPHEID NEG #### [place] [address] [place] Bilirubin,Urine Negative Normal Negative [facility] Comment on above: Order Comment: Name Collection Type:: Clean-Voided Midstream Performed By: #### C OVID19 FLU RSV, CEPHEID NEG #### [address] Glucose Ql (U) Normal Normal Normal [facility] Comment on above: Order Comment: Name Collection Type:: Clean-Voided Midstream Performed By: #### C OVID19 FLU RSV, CEPHEID NEG #### [place] [address] [place] Hyaline Casts,Urine None Normal 0-8 [facility] Comment on above: Order Comment: Name Collection Type:: Clean-Voided Midstream Performed By: #### C OVID19 FLU RSV, CEPHEID NEG #### [place] [address] [place] Mucus,Urine Rare Normal [facility] Comment on above: Order Comment: Name Collection Type:: Clean-Voided Midstream Result Comment: PERF ORMED BY: [place] [address] PATH[employer] TRISTEN MOSELEY M.D. Performed By: #### C OVID19 FLU RSV, CEPHEID NEG #### [place] [address] [place] Nitrite,Urine Negative Normal Negative [facility] Comment on above: Order Comment: Name Collection Type:: Clean-Voided Midstream Performed By: #### C OVID19 FLU RSV, CEPHEID NEG #### [place] [address] [place] Occult Blood,Urine Negative Normal Negative [facility] Comment on above: Order Comment: Name Collection Type:: Clean-Voided Midstream Result Comment: PERF ORMED BY: [place] [address] PATH[employer] TRISTEN MOSELEY M.D. Performed By: #### C OVID19 FLU RSV, CEPHEID NEG #### [place] [address] [place] Protein,Urine Negative Normal Negative [facility] Comment on above: Order Comment: Name Collection Type:: Clean-Voided Midstream Performed By: #### C OVID19 FLU RSV, CEPHEID NEG #### [place] [address] [place] RBC,Urine 1-2 Normal 0-4 [facility] Comment on above: Order Comment: Name Collection Type:: Clean-Voided Midstream Performed By: #### C OVID19 FLU RSV, CEPHEID NEG #### [address] Specificy [place],Urine 1.011 Normal 1.001-1.03 0 [facility] Comment on above: Order Comment: Name Collection Type:: Clean-Voided Midstream Performed By: #### C OVID19 FLU RSV, CEPHEID NEG #### [address] Squamous Epithelial Cell,Urine 5-9 High 0-2 [facility] Comment on above: Order Comment: Name Collection Type:: Clean-Voided Midstream Performed By: #### C OVID19 FLU RSV, CEPHEID NEG #### [address] Urobilinogen,Urine Normal Normal Normal [facility] Comment on above: Order Comment: Name Collection Type:: Clean-Voided Midstream Performed By: #### C OVID19 FLU RSV, CEPHEID NEG #### [place] [address] [place] WBC,Urine 1-2 Normal 0-4 [facility] Comment on above: Order Comment: Name Collection Type:: Clean-Voided Midstream Performed By: #### C OVID19 FLU RSV, CEPHEID NEG #### [place] [address] [place] Eosinophils [#/volume] in Bl ood by Automated countOrdered By: Jim Vega on 02-01-2025 Eosinophils (Bld) [#/Vol] 0.1 10*3/uL Normal 0.0-0.45 [facility] Comment on above: Performed By: #### B MP, CBC #### [place] [address] [place] Eosinophils/100 leukocytes i n Blood by Automated countOrdered By: Jim Vega on 02-01-2025 Eosinophils/100 WBC (Bld) 1.1 % Normal . [facility] Comment on above: Performed By: #### B MP, CBC #### [place] [address] [place] [address] [place] Epithelial cells.squamous [# /area] in Urine sediment by Automated countOrdered By: Jim Vega on 02-01-2025 Epithelial cells.squamous Auto (Urine sed) [#/Area] 5-9 [HPF] High 0-2 [facility] Erythrocyte distribution wid th [Ratio] by Automated countOrdered By: Jim Vega on 02-01-2025 Erythrocyte distribution width (RBC) [Ratio] 14.2 % Normal 11.9-15.3 [facility] Comment on above: Performed By: #### B MP, CBC #### [facility] [address] [place] [address] [place] Erythrocytes [#/area] in Uri ne sediment by Automated countOrdered By: Jim Vega on 02-01-2025 RBC Auto (Urine sed) [#/Area] 1-2 [HPF] 0-4 [facility] Erythrocytes [#/volume] in B lood by Automated countOrdered By: Jim Vega on 02-01-2025 RBC (Bld) [#/Vol] 3.94 10*6/uL Normal 3.60-5.00 [facility] Comment on above: Performed By: #### B MP, CBC #### [place] [address] [place] Glucose [Mass/volume] in Ser um or PlasmaOrdered By: Jim Vega on 02-01-2025 Glucose [Mass/Vol] 73 mg/dL Normal 70-100 [facility] Comment on above: ADA recommended refe rence rangeRandom Glucose Reference Range is dependent on time and content of last meal. Glucose of more than 200 mg/dL in a nonstressed, ambulatory subject supports the diagnosis of Diabetes Mellitus. Result Comment: [place] [facility] Glucose Reference Range is dependent on time and content of last meal. Glucose of more than 200 mg/dL in a nonstressed, ambulatory subject supports the diagnosis of Diabetes Mellitus. ADA recommended reference range Performed By: #### B MP, CBC #### [facility] [address] [place] [address] [place] Glucose [Mass/volume] in Uri ne by Test stripOrdered By: Jim Vega on 02-01-2025 Glucose Test strip (U) [Mass/Vol] Normal mg/dL Normal [facility] Hematocrit [Volume Fraction] of Blood by Automated countOrdered By: Jim Vega on 02-01-2025 Hematocrit (Bld) [Volume fraction] 29.7 % Low 34.0-46.4 [facility] Comment on above: Performed By: #### B MP, CBC #### [address] Hemoglobin Test strip Ql (U) Ordered By: Jim Vega on 02-01-2025 Hemoglobin Ql (U) Negative Negative [facility] Hemoglobin [Mass/volume] in BloodOrdered By: Jim Vega on 02-01-2025 Hemoglobin (Bld) [Mass/Vol] 9.5 g/dL Low 11.8-15.4 [facility] Comment on above: Performed By: #### B MP, CBC #### [place] [address] [place] Hyaline casts [#/area] in Ur ine sediment by Automated countOrdered By: Jim Vega on 02-01-2025 Hyaline casts Auto (Urine sed) [#/Area] None [LPF] 0-8 [facility] Ketones [Presence] in Urine by Test stripOrdered By: iJm Vega on 02-01-2025 Ketones Ql (U) 3+ High Negative [facility] Comment on above: Order Comment: Name Collection Type:: Clean-Voided Midstream Performed By: #### C OVID19 FLU RSV, CEPHEID NEG #### [place] [address] [place] Leukocyte esterase [Presence ] in Urine by Test stripOrdered By: Jim Vega on 02-01-2025 Leukocyte esterase Test strip Ql (U) 2+ High Negative [facility] Comment on above: Order Comment: Name Collection Type:: Clean-Voided Midstream Performed By: #### C OVID19 FLU RSV, CEPHEID NEG #### [place] [address] [place] Leukocytes [#/area] in Urine sediment by Automated countOrdered By: Jim Vega on 02-01-2025 WBC Auto (Urine sed) [#/Area] 1-2 [HPF] 0-4 [facility] Leukocytes [#/volume] correc delmer for nucleated erythrocytes in Blood by Automated counOrdered By: Jim Vega on 02-01-2025 WBC corrected for nucl RBC Auto (Bld) [#/Vol] 6.5 10*3/uL 3.8-11.6 [facility] Leukocytes [#/volume] in Blo od by Automated countOrdered By: Jim Vega on 02-01-2025 WBC (Bld) [#/Vol] 6.5 10*3/uL Normal 3.8-11.6 [facility] Comment on above: Performed By: #### B MP, CBC #### [place] [address] [place] Lymphocytes [#/volume] in Bl ood by Automated countOrdered By: Jim Vega on 02-01-2025 Lymphocytes (Bld) [#/Vol] 1.0 10*3/uL Normal 1.00-4.8 [facility] Comment on above: Performed By: #### B MP, CBC #### [place] [address] [place] Lymphocytes/100 leukocytes i n Blood by Automated countOrdered By: Jim Vega on 02-01-2025 Lymphocytes/100 WBC (Bld) 14.8 % Normal . [facility] Comment on above: Performed By: #### B MP, CBC #### [place] [address] [place] MCH [Entitic mass] by Automa delmer countOrdered By: Jim Vega on 02-01-2025 MCH (RBC) [Entitic mass] 24.1 pg Low 24.7-34.3 [facility] Comment on above: Performed By: #### B MP, CBC #### [place] [address] [place] MCHC Auto (RBC) [Mass/Vol]Or dered By: Jim Vega on 02-01-2025 MCHC (RBC) [Mass/Vol] 32.1 g/dL 32.0-35.0 [facility] MCV [Entitic volume] by Auto mated countOrdered By: Jim Vega on 02-01-2025 MCV (RBC) [Entitic vol] 75.3 fL Low 80-100 [facility] Comment on above: Performed By: #### B MP, CBC #### [facility] [address] [place] [address] Monocyte distribution width [Entitic volume] in Blood by AutomatedOrdered By: Jim Vega on 02-01-2025 Monocyte distribution width Auto (Bld) [Entitic vol] 20.57 % High 0.00-20.00 [facility] Comment on above: For adults in ED, MD W > 20.0 may be associated with a higher risk of sepsis during the first 12 hrs of hospital admission Monocytes [#/volume] in Bloo d by Automated countOrdered By: Jim Vega on 02-01-2025 Monocytes (Bld) [#/Vol] 0.7 10*3/uL Normal 0.0-0.8 [facility] Comment on above: Performed By: #### B MP, CBC #### [facility] [address] [place] [address] Monocytes/100 leukocytes in Blood by Automated countOrdered By: Jim Vega on 02-01-2025 Monocytes/100 WBC (Bld) 9.9 % Normal . [facility] Comment on above: Performed By: #### B MP, CBC #### [facility] [address] [place] [address] Mucus [Presence] in Urine by AutomatedOrdered By: Jim Vega on 02-01-2025 Mucus Auto Ql (U) Rare [LPF] [facility] Neutrophils [#/volume] in Bl ood by Automated countOrdered By: Jim Vega on 02-01-2025 Neutrophils (Bld) [#/Vol] 4.8 10*3/uL Normal 1.8-7.7 [facility] Comment on above: Performed By: #### B MP, CBC #### [facility] [address] [place] [address] [place] Neutrophils/100 leukocytes i n Blood by Automated countOrdered By: Jim Vega on 02-01-2025 Neutrophils/100 WBC (Bld) 73.9 % Normal . [facility] Comment on above: Performed By: #### B MP, CBC #### [facility] [address] Nitrite Test strip Ql (U)Ord ered By: Jim Vega on 02-01-2025 Nitrite Ql (U) Negative Negative [facility] No Panel InformationOrdered By: Jim Vega on 02-01-2025 Estimated GFR (CKD-EPI) > 60.0 mL/Min [facility] Creatinine Clearance (Chem 164.96 [facility] No Panel InformationOrdered By: Luisa Wick on 02-01-2025 Quick Strep (POC) [facility] Nucleated erythrocytes [Pres ence] in Blood by Automated countOrdered By: Jim Vega on 02-01-2025 Nucleated RBC Auto Ql (Bld) 0.1 /100{WBC} 0-0.5 [facility] Platelet mean volume [Entiti c volume] in Blood by Automated countOrdered By: Jim Vega on 02-01-2025 Platelet mean volume (Bld) [Entitic vol] 9.3 fL Normal 6.3-10.7 [facility] Comment on above: Performed By: #### B MP, CBC #### [place] [address] [place] Platelets [#/volume] in Bloo d by Automated countOrdered By: Jim Vega on 02-01-2025 Platelets (Bld) [#/Vol] 143 10*3/uL Low 150-450 [facility] Comment on above: Performed By: #### B MP, CBC #### [address] Potassium [Moles/volume] in Serum or PlasmaOrdered By: Jim Vega on 02-01-2025 Potassium [Moles/Vol] 3.2 mmol/L Low 3.5-5.1 [facility] Comment on above: Performed By: #### B MP, CBC #### [facility] [address] [place] [id number] [facility] Protein Test strip (U) [Mass /Vol]Ordered By: Jim Vega on 02-01-2025 Protein (U) [Mass/Vol] Negative Negative [facility] Quick Strepon 02-01-2025 Quick Strep Streptococcus pyogen es Ag [Presence] in Throat by Rapid immunoassay Negative for Group A Strep Antigen Note 1 NOTE 2 Results are those of a screening test. NOTE 3 If clinically indicated please order a culture. NOTE 4 NOTE 5 Reference range = Negative PERFORMED BY: [place] [address] PATH[employer] TRISTEN MOSELEY M.D. Normal [facility] Comment on above: Performed By: #### Q S #### [address] Respiratory (Upper) Panel, P CRon 02-01-2025 [...] Influenza A H3 Blank Space PERFORMED BY: [place] [address] PATH[employer] TRISTEN MOSELEY M.D. Normal [facility] Comment on above: Performed By: #### C OVID19 FLU RSV, CEPHEID NEG #### [facility] [address] Respiratory pathogens DNA an d RNA panel - Nasopharynx by HIRAM with non-probe detectionOrdered By: Jim Vega on 02-01-2025 Respiratory pathogens DNA and RNA panel HIRAM+non-probe (Nph) [facility] Serum or plasma anion gap de terminationOrdered By: Jim Vega on 02-01-2025 Anion gap [Moles/Vol] 10.9 mmol/L Normal 6.0-15.0 [facility] Comment on above: Performed By: #### B MP, CBC #### [facility] [address] Sodium [Moles/volume] in Ser um or PlasmaOrdered By: Jim Vega on 02-01-2025 Sodium [Moles/Vol] 136 mmol/L Normal 136-145 [facility] Comment on above: Performed By: #### B MP, CBC #### [address] Specific gravity Test strip (U) [Rel density]Ordered By: Jim Vega on 02-01-2025 Specific gravity (U) [Rel density] 1.011 1.001-1.03 0 [facility] Streptococcus pyogenes antig en detectionOrdered By: Jim Vega on 02-01-2025 S. pyogenes Ag Ql (Unsp spec) [facility] Urea nitrogen [Mass/volume] in Serum or PlasmaOrdered By: Jim Vega on 02-01-2025 Urea nitrogen [Mass/Vol] 4 mg/dL Low 7-25 [facility] Comment on above: Performed By: #### B MP, CBC #### [address] Urobilinogen Test strip (U) [Mass/Vol]Ordered By: Jim Vega on 02-01-2025 Urobilinogen (U) [Mass/Vol] Normal mg/dL Normal [facility] pH of Urine by Test stripOrd ered By: Jim Vega on 02-01-2025 pH (U) 6.5 [pH] Normal 5.0-9.0 [facility] Comment on above: Order Comment: Name Collection Type:: Clean-Voided Midstream Performed By: #### C OVID19 FLU RSV, CEPHEID NEG #### [address] Ferritin [Mass/volume] in Se rum or PlasmaOrdered By: Priscilla Warren on 01-28-2025 Ferritin [Mass/Vol] Ferritin [Mass/volum e] in Serum or Plasma 11.0-306.8 [facility] Ferritin [Mass/Vol] 43.0 ng/mL Normal 11.0-306.8 [facility] Comment on above: Result Comment: PERF ORMED BY: [address] [place] [address] PATHOLOGIST [employer] ASSIST[employer] AND SALESPERSONS TRISTEN MOSELEY M.D. Performed By: #### C OVID19 FLU RSV, CEPHEID NEG #### [facility] [address] Transferrin [Mass/volume] in Serum or PlasmaOrdered By: Priscilla Warren on 01-28-2025 Transferrin [Mass/Vol] Transferrin [Mass /volume] in Serum or Plasma 203-362 [facility] Transferrin [Mass/Vol] 226 mg/dL Normal 203-362 [facility] Comment on above: Performed By: #### C OVID19 FLU RSV, CEPHEID NEG #### [facility] [address] RECURRENT VAGINITIS (HTRX)on 01-15-2025 ATOPOBIUM VAGINAE 25.517 Abnormal [facility] ATOPOBIUM VAGINAE Detected Abnormal [facility] BVAB 2,3 (BACTERIAL VAGINOSIS ASSOCIATED BACTERIA 2, 3); MOBILUNCUS SPP 23.796 Abnormal [facility] BVAB 2,3 (BACTERIAL VAGINOSIS ASSOCIATED BACTERIA 2, 3); MOBILUNCUS SPP Detected Abnormal [facility] MARION ALBICANS, PARAPSILOSIS, TROPICALIS 0 [facility] MARION ALBICANS, PARAPSILOSIS, TROPICALIS Not detected [facility] MARION GLABRATA 0 [facility] MARION GLABRATA Not detected [facility] MARION KRUSEI 0 [facility] MARION KRUSEI Not detected [facility] CHLAMYDIA TRACHOMATIS 0 [facility] CHLAMYDIA TRACHOMATIS Not detected N [facility] GARDNERELLA VAGINALIS 0 [facility] GARDNERELLA VAGINALIS Not detected N [facility] Interpretation and review of laboratory results Abnormal [facility] Healthcare MEGASPHAERA (TYPES 1, 2) 0 [facility] Healthcare MEGASPHAERA (TYPES 1, 2) Not detected [facility] MYCOPLASMA GENITALIUM 0 [facility] [facility] [facility] MYCOPLASMA GENITALIUM Not detected N [facility] NEISSERIA GONORRHOEAE 0 [facility] [facility] NEISSERIA GONORRHOEAE Not detected N [facility] TRICHOMONAS VAGINALIS 0 [facility] TRICHOMONAS VAGINALIS Not detected N [facility] Urinalysis macro (dipstick) panel (U)on 01-14-2025 Bilirubin, UA Negative Negative - 4(70) +++ mg/dL [facility] Blood, UA Positive Negative - 50 Hong/mcL [facility] Comment on above: Trace-lysed Clarity, UA Clear [facility] Color, UA Yellow [facility] Glucose, UA Negative Negative - 1999(110) ++++ mg/dL [facility] Interpretation and review of laboratory results Abnormal [facility] Ketones, UA Positive Negative - 160(16) ++++ mg/dL [facility] Comment on above: Trace Leukocytes, UA Negative Negative - 500+++ Iqra/mcL [facility] Nitrite, UA Negative Negative - Positive [facility] pH, UA 7 5 - 9 [facility] Protein, UA Trace Negative - 1999(20) ++++ mg/dL [facility] Spec Grav, UA 1.025 1 - 1.03 [facility] Urobilinogen, UA 1.0 0.2 - 12 mg/dL Counts include 234 beds at the [facility] ALL CBC WITH AUTO DIFFon BASOPHILS ABSOLUTE AUTO 0 [facility] Basophils/100 WBC (Bld) 0.2 % 0.2 - 2.0 % [facility] Eosinophils/100 WBC (Bld) 1 % 0.9 - 7.0 % [facility] Erythrocyte distribution width (RBC) [Ratio] 13.4 % 11.0 - 15.0 % [facility] Hematocrit (Bld) [Volume fraction] 30.3 % Low 36.0 - 48.0 % [facility] Hemoglobin (Bld) [Mass/Vol] 9.4 g/dL Low 12.0 - 16.0 g/dL [facility] IMMATURE GRANULOCYTES ABS AUTO 0.05 High [facility] Immature granulocytes/100 WBC (Bld) 0.6 % High 0.0 - 0.5 % [facility] Interpretation and review of laboratory results Abnormal [facility] LYMPHOCYTES ABSOLUTE AUTO 1.2 [facility] Lymphocytes/100 WBC (Bld) 13.6 % Low 20.5 - 60.0 % [facility] MCH (RBC) [Entitic mass] 23.9 pg Low 26.7 - 34.0 pg [facility] MCHC (RBC) [Mass/Vol] 31 g/dL 29.9 - 35.2 g/dL [facility] MCV (RBC) [Entitic vol] 77.1 fL Low 81.0 - 99.0 fL [facility] MONOCYTES ABSOLUTE AUTO 0.6 [facility] Monocytes/100 WBC (Bld) 6.7 % 1.7 - 12.0 % [facility] NEUTROPHILS ABSOLUTE AUTO 6.9 High [facility] Neutrophils/100 WBC (Bld) 77.9 % High 43.0 - 75.0 % [facility] Platelet mean volume (Bld) [Entitic vol] 11.3 fL 9.5 - 13.5 fL [facility] EO # 0.1 [facility] PLT 187 [facility] RBC 3.93 Low [facility] WBC 8.9 [facility] ALL CBC WITH AUTO DIFFon BASOPHILS ABSOLUTE AUTO 0 [facility] Basophils/100 WBC (Bld) 0.2 % 0.2 - 2.0 % [facility] Eosinophils/100 WBC (Bld) 1.2 % 0.9 - 7.0 % [facility] Erythrocyte distribution width (RBC) [Ratio] 13.5 % 11.0 - 15.0 % [facility] Hematocrit (Bld) [Volume fraction] 29.8 % Low 36.0 - 48.0 % [facility] Hemoglobin (Bld) [Mass/Vol] 9.3 g/dL Low 12.0 - 16.0 g/dL [facility] IMMATURE GRANULOCYTES ABS AUTO 0.03 [facility] Immature granulocytes/100 WBC (Bld) 0.4 % 0.0 - 0.5 % [facility] Interpretation and review of laboratory results Abnormal [facility] LYMPHOCYTES ABSOLUTE AUTO 1.3 [facility] Lymphocytes/100 WBC (Bld) 15.8 % Low 20.5 - 60.0 % [facility] MCH (RBC) [Entitic mass] 24.2 pg Low 26.7 - 34.0 pg [facility] MCHC (RBC) [Mass/Vol] 31.2 g/dL 29.9 - 35.2 g/dL [facility] MCV (RBC) [Entitic vol] 77.4 fL Low 81.0 - 99.0 fL [facility] MONOCYTES ABSOLUTE AUTO 0.5 [facility] Monocytes/100 WBC (Bld) 6.2 % 1.7 - 12.0 % [facility] NEUTROPHILS ABSOLUTE AUTO 6.3 [facility] Neutrophils/100 WBC (Bld) 76.2 % High 43.0 - 75.0 % [facility] Platelet mean volume (Bld) [Entitic vol] 11.7 fL 9.5 - 13.5 fL [facility] EO # 0.1 [facility] Healthcare [facility]H PLT 184 [facility] [facility] TB RBC 3.85 Low [facility] TB WBC 8.3 [facility] RECURRENT VAGINITIS (HTRX)on 12-31-2024 ATOPOBIUM VAGINAE 0 Abnormal [facility] Healthcare ATOPOBIUM VAGINAE Inconclusive Abnormal [facility] Healthcare BVAB 2,3 (BACTERIAL VAGINOSIS ASSOCIATED BACTERIA 2, 3); MOBILUNCUS SPP 0 Abnormal [facility] Healthcare BVAB 2,3 (BACTERIAL VAGINOSIS ASSOCIATED BACTERIA 2, 3); MOBILUNCUS SPP Inconclusive Abnormal [facility] MARION ALBICANS, PARAPSILOSIS, TROPICALIS 0 Abnormal [facility] Healthcare MARION ALBICANS, PARAPSILOSIS, TROPICALIS Inconclusive Abnormal [facility] MARION GLABRATA 0 Abnormal [facility] MARION GLABRATA Inconclusive Abnormal [facility] MARION KRUSEI 0 Abnormal [facility] MARION KRUSEI Inconclusive Abnormal [facility] CHLAMYDIA TRACHOMATIS 0 Abnormal [facility] CHLAMYDIA TRACHOMATIS Inconclusive Abnormal [facility] GARDNERELLA VAGINALIS 0 Abnormal [facility] GARDNERELLA VAGINALIS Inconclusive Abnormal [facility] Interpretation and review of laboratory results Abnormal [facility] MEGASPHAERA (TYPES 1, 2) 0 Abnormal [facility] MEGASPHAERA (TYPES 1, 2) Inconclusive Abnormal [facility] MYCOPLASMA GENITALIUM 0 Abnormal [facility] MYCOPLASMA GENITALIUM Inconclusive Abnormal [facility] NEISSERIA GONORRHOEAE 0 Abnormal [facility] NEISSERIA GONORRHOEAE Inconclusive Abnormal [facility] TRICHOMONAS VAGINALIS 0 Abnormal [facility] TRICHOMONAS VAGINALIS Inconclusive Abnormal [facility] [employer] [facility] Alanine aminotransferase [En zymatic activity/volume] in Serum or PlasmaOrdered By: Kelly Hough on 11-07-2024 ALT [Catalytic activity/Vol] Alanine aminotransferase [Enzymatic activity/volume] in Serum or Plasma [address] [place] [address] ALT [Catalytic activity/Vol] 12 U/L Normal [address] [place] [address] Comment on above: Performed By: #### C OVID19 FLU RSV, CEPHEID NEG #### [facility] [address] Albumin [Mass/volume] in Ser um or Plasma by Bromocresol green (BCG) dye binding methoOrdered By: Kelly Hough on 11-07-2024 Albumin BCG dye [Mass/Vol] Albumin [Mass/volume] in Serum or Plasma by Bromocresol green (BCG) dye binding metho 3.5-5.7 [facility] Albumin BCG dye [Mass/Vol] 3.5 g/dL 3.5-5.7 [facility] Alkaline phosphatase [Enzyma tic activity/volume] in Serum or PlasmaOrdered By: Kelly France on 11-07-2024 ALP [Catalytic activity/Vol] Alkaline phosphatase [Enzymatic activity/volume] in Serum or Plasma 34-104 [facility] ALP [Catalytic activity/Vol] 42 U/L Normal 34-104 [facility] Comment on above: Performed By: #### C OVID19 FLU RSV, CEPHEID NEG #### [address] Aspartate aminotransferase [ Enzymatic activity/volume] in Serum or PlasmaOrdered By: Kelly France on 11-07-2024 AST [Catalytic activity/Vol] Aspartate aminotransferase [Enzymatic activity/volume] in Serum or Plasma Low 13-39 [facility] AST [Catalytic activity/Vol] 12 U/L Low 13-39 [facility] Comment on above: Performed By: #### C OVID19 FLU RSV, CEPHEID NEG #### [address] Basophils Auto (Bld) [#/Vol] Ordered By: Kelly France on 11-07-2024 Basophils (Bld) [#/Vol] Automated basophil count 0.0-0.2 [facility] Basophils/100 WBC Auto (Bld) Ordered By: Kelly France on 11-07-2024 Basophils/100 WBC (Bld) Automated basophil % . [facility] Bilirubin.total [Mass/volume ] in Serum or PlasmaOrdered By: Kelly France on 11-07-2024 Bilirubin [Mass/Vol] Bilirubin.total [Mass/volume] in Serum or Plasma 0.3-1.0 [facility] Bilirubin [Mass/Vol] 0.3 mg/dL Normal 0.3-1.0 [facility] Comment on above: Performed By: #### C OVID19 FLU RSV, CEPHEID NEG #### [place] [address] [place] CBC W Auto Differential pane l (Bld)on 11-07-2024 Basophils (Bld) [#/Vol] 0 10*3/uL 0.0 - 0.2 10*3/uL [facility] Basophils/100 WBC Manual cnt (Syn fld) 0.3 % . [facility] Eosinophils (Bld) [#/Vol] 0.1 10*3/uL 0.0 - 0.45 10*3/uL [facility] Eosinophils/100 WBC Manual cnt (Syn fld) 1.1 % . [facility] Erythrocyte distribution width (RBC) [Ratio] 14.4 % 11.9 - 15.3 % [facility] Hematocrit (Bld) [Volume fraction] 30.7 % Low 34.0 - 46.4 % [facility] Hemoglobin (Bld) [Mass/Vol] 9.7 g/dL Low 11.8 - 15.4 g/dL [facility] Interpretation and review of laboratory results Abnormal [facility] Lymphocytes (Bld) [#/Vol] 1.7 10*3/uL 1.00 - 4.8 10*3/uL [facility] Lymphocytes/100 WBC Manual cnt (Syn fld) 16.9 % . [facility] MCH (RBC) [Entitic mass] 23.3 pg Low 24.7 - 34.3 pg [facility] MCHC (RBC) [Mass/Vol] 31.7 g/dL Low 32.0 - 35.0 g/dL [facility] MCV (RBC) [Entitic vol] 73.4 fL Low 80 - 100 fL [facility] Monocytes (Bld) [#/Vol] 0.7 10*3/uL 0.0 - 0.8 10*3/uL [facility] Monocytes+Macrophages/ 100 WBC Manual cnt (Syn fld) 6.7 % . [facility] Neutrophils (Bld) [#/Vol] 7.4 10*3/uL 1.8 - 7.7 10*3/uL [facility] Neutrophils/100 WBC Manual cnt (Syn fld) 75 % . [facility] NRBC 0.1 /100{WBC} 0 - 0.5 /100{WBC} [facility] Platelet mean volume (Bld) [Entitic vol] 9.5 fL 6.3 - 10.7 fL [facility] Platelets (Bld) [#/Vol] 182 10*3/uL 150 - 450 10*3/uL [facility] RBC LM.HPF (Urine sed) [#/Area] 4.18 10*6/uL 3.60 - 5.00 10*6/uL [facility] WBC (Bld) [#/Vol] 9.9 10*3/uL 3.8 - 11.6 10*3/uL [facility] WBC LM.HPF (Urine sed) [#/Area] 9.9 10*3/uL 3.8 - 11.6 10*3/uL [facility] Calcium [Mass/volume] in Ser um or PlasmaOrdered By: Kelly Ryannemesio on 11-07-2024 Calcium [Mass/Vol] Calcium [Mass/volume ] in Serum or Plasma Low 8.6-10.3 [facility] Calcium [Mass/Vol] 8.5 mg/dL Low 8.6-10.3 [facility] Comment on above: Performed By: #### C OVID19 FLU RSV, CEPHEID NEG #### [address] Carbon dioxide, total [Moles /volume] in Serum or PlasmaOrdered By: Kelly Ryannemesio on 11-07-2024 CO2 [Moles/Vol] Carbon dioxide, tota l [Moles/volume] in Serum or Plasma 21.0-31.0 [facility] CO2 [Moles/Vol] 23.4 mmol/L Normal 21.0-31.0 [facility] Comment on above: Performed By: #### C OVID19 FLU RSV, CEPHEID NEG #### [place] [address] [place] Chloride [Moles/volume] in S salas or PlasmaOrdered By: Kelly France on 11-07-2024 Chloride [Moles/Vol] Chloride [Moles/vol ume] in Serum or Plasma 98-107 [facility] Chloride [Moles/Vol] 106 mmol/L Normal 98-107 [facility] Comment on above: Performed By: #### C OVID19 FLU RSV, CEPHEID NEG #### [facility] [address] Complete Blood Count Auto Di ffon 11-07-2024 Basophils (Bld) [#/Vol] 0.0 10*3/uL Normal 0.0-0.2 [facility] Comment on above: Result Comment: PERF ORMED BY: [place] [address] PATHOLOGIST [employer] AND SAL[employer] TRISTEN MOSELEY M.D. Performed By: #### C OVID19 FLU RSV, CEPHEID NEG #### [address] Basophils/100 WBC (Bld) 0.3 % Normal . [facility] Comment on above: Performed By: #### C OVID19 FLU RSV, CEPHEID NEG #### [address] Eosinophils (Bld) [#/Vol] 0.1 10*3/uL Normal 0.0-0.45 [facility] Comment on above: Performed By: #### C OVID19 FLU RSV, CEPHEID NEG #### [address] Eosinophils/100 WBC (Bld) 1.1 % Normal . [facility] Comment on above: Performed By: #### C OVID19 FLU RSV, CEPHEID NEG #### [address] Erythrocyte distribution width (RBC) [Ratio] 14.4 % Normal 11.9-15.3 [facility] Comment on above: Performed By: #### C OVID19 FLU RSV, CEPHEID NEG #### [address] Hematocrit (Bld) [Volume fraction] 30.7 % Low 34.0-46.4 [facility] Comment on above: Performed By: #### C OVID19 FLU RSV, CEPHEID NEG #### [address] Hemoglobin (Bld) [Mass/Vol] 9.7 g/dL Low 11.8-15.4 [facility] Comment on above: Performed By: #### C OVID19 FLU RSV, CEPHEID NEG #### [address] Lymphocytes (Bld) [#/Vol] 1.7 10*3/uL Normal 1.00-4.8 [facility] Comment on above: Performed By: #### C OVID19 FLU RSV, CEPHEID NEG #### [address] Lymphocytes/100 WBC (Bld) 16.9 % Normal . [facility] Comment on above: Performed By: #### C OVID19 FLU RSV, CEPHEID NEG #### [address] MCH (RBC) [Entitic mass] 23.3 pg Low 24.7-34.3 [facility] Comment on above: Performed By: #### C OVID19 FLU RSV, CEPHEID NEG #### [address] MCV (RBC) [Entitic vol] 73.4 fL Low 80-100 [facility] Comment on above: Performed By: #### C OVID19 FLU RSV, CEPHEID NEG #### [address] Mean Corpuscular HGB Conc 31.7 g/dL Low 32.0-35.0 [facility] Comment on above: Performed By: #### C OVID19 FLU RSV, CEPHEID NEG #### [address] Monocytes (Bld) [#/Vol] 0.7 10*3/uL Normal 0.0-0.8 [facility] Comment on above: Performed By: #### C OVID19 FLU RSV, CEPHEID NEG #### [address] Monocytes/100 WBC (Bld) 6.7 % Normal . [facility] Comment on above: Performed By: #### C OVID19 FLU RSV, CEPHEID NEG #### [place] [id number] [place] Neutrophils (Bld) [#/Vol] 7.4 10*3/uL Normal 1.8-7.7 [facility] Comment on above: Performed By: #### C OVID19 FLU RSV, CEPHEID NEG #### [address] Neutrophils/100 WBC (Bld) 75.0 % Normal . [facility] Comment on above: Performed By: #### C OVID19 FLU RSV, CEPHEID NEG #### [address] NRBC% 0.1 /100{WBC} Normal 0-0.5 [facility] Comment on above: Performed By: #### C OVID19 FLU RSV, CEPHEID NEG #### [address] Platelet mean volume (Bld) [Entitic vol] 9.5 fL Normal 6.3-10.7 [facility] Comment on above: Performed By: #### C OVID19 FLU RSV, CEPHEID NEG #### [address] Platelets (Bld) [#/Vol] 182 10*3/uL Normal 150-450 [facility] Comment on above: Performed By: #### C OVID19 FLU RSV, CEPHEID NEG #### [address] RBC (Bld) [#/Vol] 4.18 10*6/uL Normal 3.60-5.00 [facility] Comment on above: Performed By: #### C OVID19 FLU RSV, CEPHEID NEG #### [place] [address] [place] WBC (Bld) [#/Vol] 9.9 10*3/uL Normal 3.8-11.6 [facility] Comment on above: Performed By: #### C OVID19 FLU RSV, CEPHEID NEG #### [address] Comprehensive Metabolic Pane tone 11-07-2024 Albumin [Mass/Vol] 3.5 g/dL Normal 3.5-5.7 [facility] Comment on above: Performed By: #### C OVID19 FLU RSV, CEPHEID NEG #### [facility] [address] [place] [address] Creatinine Clr Calc Pharmacy 143.46 Normal [facility] Comment on above: Performed By: #### C OVID19 FLU RSV, CEPHEID NEG #### [address] GFR/1.73 sq M.predicted MDRD (S/P/Bld) [Vol rate/Area] mL/min/{1.73_m2} Normal [facility] Comment on above: Performed By: #### C OVID19 FLU RSV, CEPHEID NEG #### [address] Creatinine [Mass/volume] in Serum or PlasmaOrdered By: Kelly Hough on 11-07-2024 Creatinine [Mass/Vol] Creatinine [Mass/v olume] in Serum or Plasma Low 0.60-1.20 [facility] Creatinine [Mass/Vol] 0.53 mg/dL Low 0.60-1.20 [facility] Comment on above: Performed By: #### C OVID19 FLU RSV, CEPHEID NEG #### [address] Eosinophils Auto (Bld) [#/Vo l]Ordered By: Kelly Hough on 11-07-2024 Eosinophils (Bld) [#/Vol] Automated eosinophil count 0.0-0.45 [facility] Eosinophils/100 WBC Auto (Bl d)Ordered By: Kelly Hough on 11-07-2024 Eosinophils/100 WBC (Bld) Automated eosinophil % . [facility] Erythrocyte distribution wid th Auto (RBC) [Ratio]Ordered By: Kelly Hough on 11-07-2024 Erythrocyte distribution width (RBC) [Ratio] Erythrocyte distribution width [Ratio] by Automated count 11.9-15.3 [facility] Ferritinon 11-07-2024 Ferritin [Mass/Vol] 93.7 ng/mL Normal 11.0-306.8 [facility] Comment on above: Performed By: #### C OVID19 FLU RSV, CEPHEID NEG #### [facility] [address] [place] [id number] [place] Ferritin [Mass/volume] in Se rum or PlasmaOrdered By: Kelly Hough on 11-07-2024 Ferritin [Mass/Vol] Ferritin [Mass/volum e] in Serum or Plasma 11.0-306.8 [facility] Folateon 11-07-2024 Folate 8.1 ng/mL Normal >5.9 [facility] Comment on above: Result Comment: Breana te reference range: >5.9 ng/ml The WHO technical consultation on folate and vitamin b12 deficiencies has determined that folate concentrations less than 4 ng/ml are considered deficient. PERFORMED BY: [place] [address] PATHOLOGIST [employer] TRISTEN MOSELEY M.D. Performed By: #### C OVID19 FLU RSV, CEPHEID NEG #### [facility] [address] [place] [id number] [facility] Folate [Mass/volume] in Seru m or PlasmaOrdered By: Kelly Hough on 11-07-2024 Folate [Mass/Vol] Folate [Mass/volume] in Serum or Plasma >5.9 [facility] Comment on above: Folate reference ran ge: >5.9 ng/mlThe WHO technical consultation on folate and vitamin [id number] has determined that folate concentrations lessthan 4 ng/ml are considered deficient. Globulin Calc (S) [Mass/Vol] Ordered By: Kelly Hough on 11-07-2024 Globulin (S) [Mass/Vol] Serum globulin measurement by calculation (mass/volume) [facility] Glucose [Mass/volume] in Ser um or PlasmaOrdered By: Kelly Hough on 11-07-2024 Glucose [Mass/Vol] Glucose [Mass/volume ] in Serum or Plasma 70-100 [facility] Comment on above: ADA recommended refe rence rangeRandom Glucose Reference Range is dependent on time and content of last meal. Glucose of more than 200 mg/dL in a nonstressed, ambulatory subject supports the diagnosis of Diabetes Mellitus. Glucose [Mass/Vol] 75 mg/dL Normal 70-100 [facility] Comment on above: ADA recommended refe rence rangeRandom Glucose Reference Range is dependent on time and content of last meal. Glucose of more than 200 mg/dL in a nonstressed, ambulatory subject supports the diagnosis of Diabetes Mellitus. Result Comment: [place] [facility] Glucose Reference Range is dependent on time and content of last meal. Glucose of more than 200 mg/dL in a nonstressed, ambulatory subject supports the diagnosis of Diabetes Mellitus. ADA recommended reference range Performed By: #### C OVID19 FLU RSV, CEPHEID NEG #### [address] Hematocrit Auto (Bld) [Volum e fraction]Ordered By: Kelly Hough on 11-07-2024 Hematocrit (Bld) [Volume fraction] Hematocrit [Volume Fraction] of Blood by Automated count Low 34.0-46.4 [facility] Hemoglobin [Mass/volume] in BloodOrdered By: Kelly Hough on 11-07-2024 Hemoglobin (Bld) [Mass/Vol] Hemoglobin [Mass/volume] in Blood Low 11.8-15.4 [facility] Iron [Mass/volume] in Serum or PlasmaOrdered By: Kelly Hough on 11-07-2024 Iron [Mass/Vol] Iron [Mass/volume] i n Serum or Plasma 50-212 [facility] Iron and TIBC Profileon 10-19 % Iron Saturation 21.4 % Normal 20-50 [facility] Comment on above: Performed By: #### C OVID19 FLU RSV, CEPHEID NEG #### [place] [id number] [facility] Iron [Mass/Vol] 62 ug/dL Normal 50-212 [facility] Comment on above: Performed By: #### C OVID19 FLU RSV, CEPHEID NEG #### [place] [id number] [facility] Total Iron Binding Capacity 290 ug/dL Normal 255-450 [facility] Comment on above: Performed By: #### C OVID19 FLU RSV, CEPHEID NEG #### [address] [place] [address] [place] Transferrin [Mass/Vol] 207 mg/dL Normal 203-362 [facility] Comment on above: Performed By: #### C OVID19 FLU RSV, CEPHEID NEG #### [facility] [address] [place] [id number] [place] Leukocytes [#/volume] correc delmer for nucleated erythrocytes in Blood by Automated counOrdered By: Kelly Hough on 11-07-2024 WBC corrected for nucl RBC Auto (Bld) [#/Vol] Leukocytes [#/volume] corrected for nucleated erythrocytes in Blood by Automated coun 3.8-11.6 [facility] Lymphocytes Auto (Bld) [#/Vo l]Ordered By: Kelly Hough on 11-07-2024 Lymphocytes (Bld) [#/Vol] Lymphocytes [#/volume] in Blood by Automated count 1.00-4.8 [facility] Lymphocytes/100 WBC Auto (Bl d)Ordered By: Kelly Hough on 11-07-2024 Lymphocytes/100 WBC (Bld) Lymphocytes/100 leukocytes in Blood by Automated count . [facility] MCH Auto (RBC) [Entitic mass ]Ordered By: Kelly Hough on 11-07-2024 MCH (RBC) [Entitic mass] MCH [Entitic mass] by Automated count Low 24.7-34.3 [facility] MCHC Auto (RBC) [Mass/Vol]Or dered By: Kelly Hough on 11-07-2024 MCHC (RBC) [Mass/Vol] MCHC [Mass/volume] by Automated count Low 32.0-35.0 [facility] MCV Auto (RBC) [Entitic vol] Ordered By: eKlly Hough on 11-07-2024 MCV (RBC) [Entitic vol] MCV [Entitic volume] by Automated count Low 80-100 [facility] Monocytes Auto (Bld) [#/Vol] Ordered By: Kelly Hough on 11-07-2024 Monocytes (Bld) [#/Vol] Automated blood monocyte count 0.0-0.8 [facility] Monocytes/100 WBC Auto (Bld) Ordered By: Kelly Hough on 11-07-2024 Monocytes/100 WBC (Bld) Automated monocyte % . [facility] Neutrophils Auto (Bld) [#/Vo l]Ordered By: Kelly Hough on 11-07-2024 Neutrophils (Bld) [#/Vol] Neutrophils [#/volume] in Blood by Automated count 1.8-7.7 [facility] Neutrophils/100 WBC Auto (Bl d)Ordered By: Kelly Hough on 11-07-2024 Neutrophils/100 WBC (Bld) Automated neutrophil % . [facility] No Panel InformationOrdered By: Kelly Hough on 11-07-2024 Estimated GFR (CKD-EPI) > 60.0 mL/Min [facility] Creatinine Clearance (Chem 143.46 [facility] Nucleated erythrocytes [Pres ence] in Blood by Automated countOrdered By: Kelly Hough on 11-07-2024 Nucleated RBC Auto Ql (Bld) Nucleated erythrocytes [Presence] in Blood by Automated count 0-0.5 [facility] Platelet mean volume Auto (B ld) [Entitic vol]Ordered By: Kelly Hough on 11-07-2024 Platelet mean volume (Bld) [Entitic vol] Platelet mean volume [Entitic volume] in Blood by Automated count 6.3-10.7 [facility] Platelets Auto (Bld) [#/Vol] Ordered By: Kelly Hough on 11-07-2024 Platelets (Bld) [#/Vol] Platelets [#/volume] in Blood by Automated count 150-450 [facility] Potassium [Moles/volume] in Serum or PlasmaOrdered By: Kelly Hough on 11-07-2024 Potassium [Moles/Vol] Potassium [Moles/v olume] in Serum or Plasma 3.5-5.1 [facility] Potassium [Moles/Vol] 3.8 mmol/L Normal 3.5-5.1 [facility] Comment on above: Performed By: #### C OVID19 FLU RSV, CEPHEID NEG #### [facility] [address] [place] [address] Protein [Mass/volume] in Ser um or PlasmaOrdered By: Kelly Hough on 11-07-2024 Protein [Mass/Vol] Protein [Mass/volume ] in Serum or Plasma Low 6.4-8.9 [facility] Protein [Mass/Vol] 6.1 g/dL Low 6.4-8.9 [facility] Comment on above: Performed By: #### C OVID19 FLU RSV, CEPHEID NEG #### [address] RBC Auto (Bld) [#/Vol]Ordere d By: Kelly Hough on 11-07-2024 RBC (Bld) [#/Vol] Erythrocytes [#/volu me] in Blood by Automated count 3.60-5.00 [facility] Serum globulin measurement b y calculation (mass/volume)Ordered By: Kelly Hough on 11-07-2024 Globulin (S) [Mass/Vol] 2.6 g/dL Normal [facility] Comment on above: Performed By: #### C OVID19 FLU RSV, CEPHEID NEG #### [address] Serum or plasma albumin/glob ulin mass ratioOrdered By: Kelly Hough on 11-07-2024 Albumin/Globulin [Mass ratio] Serum or plasma albumin/globulin mass ratio [facility] Albumin/Globulin [Mass ratio] 1.3 {ratio} Normal [facility] Comment on above: Performed By: #### C OVID19 FLU RSV, CEPHEID NEG #### [address] Serum or plasma anion gap de terminationOrdered By: Kelly Hough on 11-07-2024 Anion gap [Moles/Vol] Serum or plasma an ion gap determination 6.0-15.0 [facility] Anion gap [Moles/Vol] 11.4 mmol/L Normal 6.0-15.0 [facility] Comment on above: Performed By: #### C OVID19 FLU RSV, CEPHEID NEG #### [address] Serum or plasma iron binding capacity measurement (mass/volume)Ordered By: Kelly Hough on 11-07-2024 Iron binding capacity [Mass/Vol] Iron binding capacity [Mass/volume] in Serum or Plasma 255-450 [facility] Serum or plasma iron saturat ion measurement (mass fraction)Ordered By: Kelly France on 11-07-2024 Iron saturation [Mass fraction] Iron saturation [Mass Fraction] in Serum or Plasma 20-50 [facility] Sodium [Moles/volume] in Ser um or PlasmaOrdered By: Kelly France on 11-07-2024 Sodium [Moles/Vol] Sodium [Moles/volume ] in Serum or Plasma 136-145 [facility] Sodium [Moles/Vol] 137 mmol/L Normal 136-145 [facility] Comment on above: Performed By: #### C OVID19 FLU RSV, CEPHEID NEG #### [facility] [address] [place] [address] [place] Transferrin [Mass/volume] in Serum or PlasmaOrdered By: Kelly France on 11-07-2024 Transferrin [Mass/Vol] Transferrin [Mass /volume] in Serum or Plasma 203-362 [facility] Urea nitrogen [Mass/volume] in Serum or PlasmaOrdered By: Kelly France on 11-07-2024 Urea nitrogen [Mass/Vol] Urea nitrogen [Mass/volume] in Serum or Plasma 7-25 [facility] Urea nitrogen [Mass/Vol] 11 mg/dL Normal 7-25 [facility] Comment on above: Performed By: #### C OVID19 FLU RSV, CEPHEID NEG #### [facility] [address] [place] [address] [place] WBC Auto (Bld) [#/Vol]Ordere d By: Kelly France on 11-07-2024 WBC (Bld) [#/Vol] Leukocytes [#/volume ] in Blood by Automated count 3.8-11.6 [facility] Urinalysis macro (dipstick) panel (U)on 11-04-2024 Bilirubin, UA Negative Negative - 4(70) +++ mg/dL [facility] Blood, UA Positive Negative - 50 Hong/mcL [facility] Comment on above: moderate Clarity, UA Clear [facility] Color, UA Marylu [facility] Glucose, UA Negative Negative - 2000(110) ++++ mg/dL [facility] Interpretation and review of laboratory results Abnormal [facility] Ketones, UA Negative Negative - 160(16) ++++ mg/dL [facility] Leukocytes, UA Negative Negative - 500+++ Iqra/mcL [facility] Nitrite, UA Negative Negative - Positive [facility] pH, UA 6 5 - 9 [facility] Protein, UA Negative Negative - 2000(20) ++++ mg/dL [facility] Spec Grav, UA 1.025 1 - 1.03 [facility] Urobilinogen, UA 1.0 0.2 - 12 mg/dL Counts include 234 beds at the [facility] IGP,APTIMA HPV,AGE GDLNon AGE GDLN ACOG TESTING Note . [facility] Comment on above: TESTS RESULT FLAG U NITS REF RANGE LAB Clinician Provided Cytology Information Source.............Cervix Other.............. No. of containers..01 ThinPrep Vial Age Algo ACOG Diana... 30-65 01 FLAG LEGEND: L-Low Normal,H-High Normal,LL-Alert Low,HH-Alert High <-Panic Low,>-Panic High,A-Abnormal,AA-Critical Abnormal Performed at: 01 =G [facility] [id number] Doreen Payne MD, HPV APTIMA Positive Abnormal Negative [facility] Comment on above: This nucleic acid am plification test detects fourteen high- risk HPV types (16,18,31,33,35,39,45,51,52,56,58,59,66,68) without differentiation. Performed at: =G - [facility] [address] Susan Par[place] [id number] [employer]orem[employer] Machine Operator: Doreen Payne MD, Phone: [phone] Performed at: [facility] [address] [place], [place] [id number] [employer] Machine Operator: Marcin Alarcon MD, Phone: [phone] IGP, APTIMA HPV, RFX 16/18,45 Note Abnormal . [facility] Comment on above: TESTS RESULT FLAG U NITS REF RANGE LAB DIAGNOSIS: [A] 02 EPITHELIAL CELL ABNORMALITY. LOW GRADE SQUAMOUS INTRAEPITHELIAL LESION (LSIL). Recommendation: [A] 02 Suggest follow up as clinically appropriate. Specimen adequacy: 02 Satisfactory for evaluation. No endocervical component is identified. Performed by: 02 Michael Streeter, Zoo Veterinarian (ASCP) Electronically si... 02 Winter Santo MD, [...] High,A-Abnormal,AA-Critical Abnormal Performed at: 02 [facility] [address] [address] [place] [address] Marcin Alarcon MD, 03 WB [facility] [address] [address] Doreen Payne MD, Interpretation and review of laboratory results Abnormal [facility] Urinalysis macro (dipstick) panel (U)on 10-14-2024 Bilirubin, UA Negative Negative - 4(70) +++ mg/dL [facility] Blood, UA Positive Negative - 50 Hong/mcL [facility] Clarity, UA Clear [facility] Color, UA Yellow [facility] Glucose, UA Negative Negative - 1999(110) ++++ mg/dL [facility] Interpretation and review of laboratory results Abnormal [facility] Ketones, UA Negative Negative - 160(16) ++++ mg/dL [facility] Leukocytes, UA Negative Negative - 500+++ Iqra/mcL [facility] Nitrite, UA Negative Negative - Positive [facility] pH, UA 7 5 - 9 [facility] Protein, UA Negative Negative - 1999(20) ++++ mg/dL [facility] Spec Grav, UA 1.025 1 - 1.03 [facility] Urobilinogen, UA 1.0 0.2 - 12 mg/dL [facility] ALL CBC WITH AUTO DIFFon BASOPHILS ABSOLUTE AUTO 0 [facility] Basophils/100 WBC (Bld) 0.1 % Low 0.2 - 2.0 % [facility] Eosinophils/100 WBC (Bld) 1.4 % 0.9 - 7.0 % [facility] Erythrocyte distribution width (RBC) [Ratio] 13.6 % 11.0 - 15.0 % [facility] Hematocrit (Bld) [Volume fraction] 34.1 % Low 36.0 - 48.0 % [facility] Hemoglobin (Bld) [Mass/Vol] 10.5 g/dL Low 12.0 - 16.0 g/dL [facility] IMMATURE GRANULOCYTES ABS AUTO 0.03 [facility] Immature granulocytes/100 WBC (Bld) 0.4 % 0.0 - 0.5 % [facility] Interpretation and review of laboratory results Abnormal [facility] LYMPHOCYTES ABSOLUTE AUTO 1.3 [facility] Lymphocytes/100 WBC (Bld) 18.3 % Low 20.5 - 60.0 % [facility] MCH (RBC) [Entitic mass] 23 pg Low 26.7 - 34.0 pg [facility] MCHC (RBC) [Mass/Vol] 30.8 g/dL 29.9 - 35.2 g/dL [facility] MCV (RBC) [Entitic vol] 74.8 fL Low 81.0 - 99.0 fL [facility] MONOCYTES ABSOLUTE AUTO 0.5 [facility] Monocytes/100 WBC (Bld) 6.3 % 1.7 - 12.0 % [facility] NEUTROPHILS ABSOLUTE AUTO 5.3 [facility] Neutrophils/100 WBC (Bld) 73.5 % 43.0 - 75.0 % [facility] Platelet mean volume (Bld) [Entitic vol] 11.1 fL 9.5 - 13.5 fL [facility] TBH EO # 0.1 [facility] PLT 230 [facility] RBC 4.56 [facility] WBC 7.2 [facility] Urinalysis macro (dipstick) panel (U)on 09-11-2024 Bilirubin, UA Negative Negative - 4(70) +++ mg/dL [facility] Blood, UA Positive Negative - 50 Hong/mcL [facility] Comment on above: trace Clarity, UA Clear [facility] Color, UA Yellow [facility] Glucose, UA Negative Negative - 1999(110) ++++ mg/dL [facility] Interpretation and review of laboratory results Abnormal [facility] Ketones, UA Negative Negative - 160(16) ++++ mg/dL [facility] Leukocytes, UA Trace Negative - 500+++ Iqra/mcL [facility] Nitrite, UA Negative Negative - Positive [facility] pH, UA 7 5 - 9 [facility] Protein, UA Negative Negative - 1999(20) ++++ mg/dL [facility] Spec Grav, UA 1.01 1 - 1.03 [facility] Urobilinogen, UA 0.2 0.2 - 12 mg/[facility] U[facility] Cultureon 09-11-2024 Bacteria identified Cx Nom (U) >100,000 colonies/ml mixed bacterial skin contaminants 2 Days PERFORMED BY: [place] [address] PATH[employer] TRISTEN MOSELEY M.D. Normal [facility] Comment on above: Performed By: #### A DDONUAPLUS, UHCG, URDS #### [facility] [address] Urine cultureOrdered By: David Pendleton on 09-11-2024 Bacteria identified Cx Nom (U) Urine culture [facility] HCG ( test) Ql (U)o n 08-26-2024 Interpretation and review of laboratory results Abnormal [facility] Preg Test, Ur Positive Negative Counts include 234 beds at the [facility] Urinalysis macro (dipstick) panel (U)on 08-26-2024 Bilirubin, UA Negative Negative - 4(70) +++ mg/dL [facility] Blood, UA Negative Negative - 50 Hong/mcL [facility] Clarity, UA Clear [facility] Color, UA Yellow [facility] Glucose, UA Negative Negative - 2000(110) ++++ mg/dL [facility] Interpretation and review of laboratory results Abnormal [facility] Ketones, UA Positive Negative - 160(16) ++++ mg/dL [facility] Leukocytes, UA Negative Negative - 500+++ Iqra/mcL [facility] Nitrite, UA Negative Negative - Positive [facility] pH, UA 7 5 - 9 [facility] Protein, UA Negative Negative - 2000(20) ++++ mg/dL [facility] Spec Grav, UA 1.015 1 - 1.03 [facility] Urobilinogen, UA 1.0 0.2 - 12 mg/dL [facility] ECG 12 lead ECGon 08-07-2024 ECG 12 lead ECG [facility] [place] [address] [place] [id number] Electrocardiograph Report Signed Patient: Leandra Fonseca MR#: [id number] : 1990 Acct:[id number] Age/Sex: 34 / F ADM Date: 08/06/24 Loc: 1S Room: [address] [place] [address] Type: ADM IN Attending Dr: Julián Naqvi [...] by 30 bpm Confirmed by Brock Rowe ([id number]) on 08/07/2024 5:03:20 PM Referred By: Electronically Signed By: Brock Rowe Transcribed By: MUS Signed By Brock Rowe MD 08/07/24 1703 Normal [facility] US OB transvaginalon 024 US OB transvaginal [facility] [place] [address] Ultrasound Report Signed Patient: Leandra Fonseca MR#: [id number] : 1990 Acct:[id number] Age/Sex: 34 / F ADM Date: 08/06/24 Loc: 1S Room: [address] [place] [address] Type: ADM IN Attending Dr: Julián Naqvi MD Ordering Provider: Julián Naqvi MD; TAM TRACY MD Date of Service: 08/07/24 US/US OB <= 14 weeks fetus: dating and anatomy ([id number]) US/US OB transvaginal: . Copies to: MD [...] Michell Miller M.D.08/07/2024 6:32 PM Dictation Location: [place] [address] Tech: Tena Romero Transcribed By: CHRISTINE 08/07/241831 Dictated By: Michell Miller MD 08/07/241824 Signed By: 08/07/241831 Normal [facility] Alanine aminotransferase [En zymatic activity/volume] in Serum or PlasmaOrdered By: Marvin Serrano on 08-06-2024 ALT [Catalytic activity/Vol] Alanine aminotransferase [Enzymatic activity/volume] in Serum or Plasma [facility] Albumin [Mass/volume] in Ser um or Plasma by Bromocresol green (BCG) dye binding methoOrdered By: Marvin Serrano on 08-06-2024 Albumin BCG dye [Mass/Vol] Albumin [Mass/volume] in Serum or Plasma by Bromocresol green (BCG) dye binding metho 3.5-5.7 [facility] Alkaline phosphatase [Enzyma tic activity/volume] in Serum or PlasmaOrdered By: Marvin Serrano on 08-06-2024 ALP [Catalytic activity/Vol] Alkaline phosphatase [Enzymatic activity/volume] in Serum or Plasma 34-104 [facility] Amphetamine Screen Ql (U)Ord ered By: Marvin Serrano on 08-06-2024 Amphetamines Ql (U) Amphetamines screen Negativ e [facility] Appearance of UrineOrdered B y: Marvin Serrano on 08-06-2024 Appearance (U) Urine appearance [facility] Aspartate aminotransferase [ Enzymatic activity/volume] in Serum or PlasmaOrdered By: Marvin Serrano on 08-06-2024 AST [Catalytic activity/Vol] Aspartate aminotransferase [Enzymatic activity/volume] in Serum or Plasma Low 13-39 [facility] Bacteria [Presence] in Urine by AutomatedOrdered By: Marvin Serrano on 08-06-2024 Bacteria Auto Ql (U) Bacteria [Presence] in Urine by Automated None Seen [facility] Barbiturates [Presence] in U rine by Screen methodOrdered By: Marvin Serrano on 08-06-2024 Barbiturates Screen Ql (U) Barbiturates [Presence] in Urine by Screen method Negative [facility] Basophils Auto (Bld) [#/Vol] Ordered By: Marvin Serrano on 08-06-2024 Basophils (Bld) [#/Vol] Automated basophil count 0.0-0.2 [facility] Basophils/100 WBC Auto (Bld) Ordered By: Marvin Serrano on 08-06-2024 Basophils/100 WBC (Bld) Automated basophil % . [facility] Benzodiazepines Screen Ql (U )Ordered By: Marvin Serrano on 08-06-2024 Benzodiazepines Ql (U) Benzodiazepines [ Presence] in Urine by Screen method Negative [facility] Benzoylecgonine [Presence] i n Urine by Screen methodOrdered By: Marvin Serrano on 08-06-2024 Benzoylecgonine Screen Ql (U) Benzoylecgonine [Presence] in Urine by Screen method Negative [facility] Bilirubin Test strip Ql (U)O rdered By: Marvin Serrano on 08-06-2024 Bilirubin Ql (U) Bilirubin.total [Pre sence] in Urine by Test strip Negative [facility] Bilirubin.total [Mass/volume ] in Serum or PlasmaOrdered By: Marvin Serrano on 08-06-2024 Bilirubin [Mass/Vol] Bilirubin.total [Mass/volume] in Serum or Plasma 0.3-1.0 [facility] Calcium [Mass/volume] in Ser um or PlasmaOrdered By: Marvin Serrano on 08-06-2024 Calcium [Mass/Vol] Calcium [Mass/volume ] in Serum or Plasma 8.6-10.3 [facility] Cannabinoids [Presence] in U rine by Screen methodOrdered By: Marvin Serrano on 08-06-2024 Cannabinoids Screen Ql (U) Cannabinoids [Presence] in Urine by Screen method Negative [facility] Comment on above: These are unconfirme [...] l [Moles/volume] in Serum or Plasma 21.0-31.0 [facility] Chloride [Moles/volume] in S salas or PlasmaOrdered By: Marvin Serrano on 08-06-2024 Chloride [Moles/Vol] Chloride [Moles/vol ume] in Serum or Plasma 98-107 [facility] Choriogonadotropin.beta subu nit [Units/volume] in Serum or PlasmaOrdered By: Marvin Serrano on 08-06-2024 HCG.beta subunit Qn Choriogonadotropin.b eta subunit [Units/volume] in Serum or Plasma [facility] Comment on above: Approximate Approxim ate hCG Gestational Age Range (mIU/ml) (weeks)0.2-1 5-50 1-2 50-500 2-3 100-5,000 3-4 500-10,000 4-5 1,000-50,000 5-6 10,000-100,000 6-8 15,000-200,000 8-12 10,000-100,000 Color Auto (U)Ordered By: Dane Serrano on 08-06-2024 Color (U) Color of Urine by Auto Yellow Fi [facility] Complete Blood Count Auto Di ffon 08-06-2024 Basophils (Bld) [#/Vol] 0.1 10*3/uL Normal 0.0-0.2 [facility] Comment on above: Result Comment: PERF ORMED BY: [place] [address] PATH[employer] TRISTEN MOSELEY M.D. Performed By: #### C OVID19 FLU RSV, CEPHEID NEG #### [address] Basophils/100 WBC (Bld) 0.7 % Normal . [facility] Comment on above: Performed By: #### C OVID19 FLU RSV, CEPHEID NEG #### [place] [address] [place] Eosinophils (Bld) [#/Vol] 0.1 10*3/uL Normal 0.0-0.45 [facility] Comment on above: Performed By: #### C OVID19 FLU RSV, CEPHEID NEG #### [address] Eosinophils/100 WBC (Bld) 0.8 % Normal . [facility] Comment on above: Performed By: #### C OVID19 FLU RSV, CEPHEID NEG #### [address] Erythrocyte distribution width (RBC) [Ratio] 14.0 % Normal 11.9-15.3 [facility] Comment on above: Performed By: #### C OVID19 FLU RSV, CEPHEID NEG #### [address] Hematocrit (Bld) [Volume fraction] 33.2 % Low 34.0-46.4 [facility] Comment on above: Performed By: #### C OVID19 FLU RSV, CEPHEID NEG #### [address] Hemoglobin (Bld) [Mass/Vol] 10.5 g/dL Low 11.8-15.4 [facility] Comment on above: Performed By: #### C OVID19 FLU RSV, CEPHEID NEG #### [address] Lymphocytes (Bld) [#/Vol] 1.0 10*3/uL Normal 1.00-4.8 [facility] Comment on above: Performed By: #### C OVID19 FLU RSV, CEPHEID NEG #### [address] Lymphocytes/100 WBC (Bld) 12.7 % Normal . [facility] Comment on above: Performed By: #### C OVID19 FLU RSV, CEPHEID NEG #### [address] MCH (RBC) [Entitic mass] 23.0 pg Low 24.7-34.3 [facility] Comment on above: Performed By: #### C OVID19 FLU RSV, CEPHEID NEG #### [address] MCV (RBC) [Entitic vol] 73.0 fL Low 80-100 [facility] Comment on above: Performed By: #### C OVID19 FLU RSV, CEPHEID NEG #### [address] Mean Corpuscular HGB Conc 31.5 g/dL Low 32.0-35.0 [facility] Comment on above: Performed By: #### C OVID19 FLU RSV, CEPHEID NEG #### [address] Monocytes (Bld) [#/Vol] 0.5 10*3/uL Normal 0.0-0.8 [facility] Comment on above: Performed By: #### C OVID19 FLU RSV, CEPHEID NEG #### [place] [address] [place] Monocytes/100 WBC (Bld) 17.93 % Normal 0.00-20.00 [facility] Comment on above: Performed By: #### C OVID19 FLU RSV, CEPHEID NEG #### [address] Monocytes/100 WBC (Bld) 6.8 % Normal . [facility] Comment on above: Performed By: #### C OVID19 FLU RSV, CEPHEID NEG #### [address] Neutrophils (Bld) [#/Vol] 6.2 10*3/uL Normal 1.8-7.7 [facility] Comment on above: Performed By: #### C OVID19 FLU RSV, CEPHEID NEG #### [address] Neutrophils/100 WBC (Bld) 79.0 % Normal . [facility] Comment on above: Performed By: #### C OVID19 FLU RSV, CEPHEID NEG #### [address] NRBC% 0.0 /100{WBC} Normal 0-0.5 [facility] Comment on above: Performed By: #### C OVID19 FLU RSV, CEPHEID NEG #### [address] Platelet mean volume (Bld) [Entitic vol] 9.3 fL Normal 6.3-10.7 [facility] Comment on above: Performed By: #### C OVID19 FLU RSV, CEPHEID NEG #### [place] [address] [place] Platelets (Bld) [#/Vol] 220 10*3/uL Normal 150-450 [facility] Comment on above: Performed By: #### C OVID19 FLU RSV, CEPHEID NEG #### [place] [address] [place] RBC (Bld) [#/Vol] 4.55 10*6/uL Normal 3.60-5.00 [facility] Comment on above: Performed By: #### C OVID19 FLU RSV, CEPHEID NEG #### [address] WBC (Bld) [#/Vol] 7.9 10*3/uL Normal 3.8-11.6 [facility] Comment on above: Performed By: #### C OVID19 FLU RSV, CEPHEID NEG #### [address] Comprehensive Metabolic Pane tone 08-06-2024 Albumin [Mass/Vol] 4.0 g/dL Normal 3.5-5.7 [facility] Comment on above: Performed By: #### C OVID19 FLU RSV, CEPHEID NEG #### [address] Albumin/Globulin [Mass ratio] 1.3 {ratio} Normal [facility] Comment on above: Performed By: #### C OVID19 FLU RSV, CEPHEID NEG #### [address] ALP [Catalytic activity/Vol] 44 U/L Normal 34-104 [facility] Comment on above: Performed By: #### C OVID19 FLU RSV, CEPHEID NEG #### [address] ALT [Catalytic activity/Vol] 7 U/L Normal 7-52 [facility] Comment on above: Performed By: #### C OVID19 FLU RSV, CEPHEID NEG #### [address] Anion gap [Moles/Vol] 11.0 mmol/L Normal 6.0-15.0 Th e [facility] Comment on above: Performed By: #### C OVID19 FLU RSV, CEPHEID NEG #### [address] AST [Catalytic activity/Vol] 11 U/L Low 13-39 [facility] Comment on above: Performed By: #### C OVID19 FLU RSV, CEPHEID NEG #### [address] Bilirubin [Mass/Vol] 0.6 mg/dL Normal 0.3-1.0 [facility] Comment on above: Performed By: #### C OVID19 FLU RSV, CEPHEID NEG #### [address] Calcium [Mass/Vol] 9.0 mg/dL Normal 8.6-10.3 [facility] Comment on above: Performed By: #### C OVID19 FLU RSV, CEPHEID NEG #### [address] Chloride [Moles/Vol] 107 mmol/L Normal 98-107 [facility] Comment on above: Performed By: #### C OVID19 FLU RSV, CEPHEID NEG #### [address] CO2 [Moles/Vol] 22.7 mmol/L Normal 21.0-31.0 [facility] Comment on above: Performed By: #### C OVID19 FLU RSV, CEPHEID NEG #### [place] [address] [place] Creatinine [Mass/Vol] 0.64 mg/dL Normal 0.60-1.20 [facility] Comment on above: Performed By: #### C OVID19 FLU RSV, CEPHEID NEG #### [place] [address] [place] Creatinine Clr Calc Pharmacy 119.09 Normal [facility] Comment on above: Result Comment: PERF ORMED BY: [place] [address] [employer] TRISTEN MOSELEY M.D. Performed By: #### C OVID19 FLU RSV, CEPHEID NEG #### [place] [address] [place] GFR/1.73 sq M.predicted MDRD (S/P/Bld) [Vol rate/Area] mL/min/{1.73_m2} Normal [facility] Comment on above: Performed By: #### C OVID19 FLU RSV, CEPHEID NEG #### [facility] [address] [place] [address] [place] Globulin (S) [Mass/Vol] 3.0 g/dL Normal [facility] Comment on above: Performed By: #### C OVID19 FLU RSV, CEPHEID NEG #### [place] [address] [place] Glucose [Mass/Vol] 98 mg/dL Normal 70-100 [facility] Comment on above: Result Comment: [facility] Glucose Reference Range is dependent on time and content of last meal. Glucose of more than 200 mg/dL in a nonstressed, ambulatory subject supports the diagnosis of Diabetes Mellitus. ADA recommended reference range Performed By: #### C OVID19 FLU RSV, CEPHEID NEG #### [place] [address] [place] Potassium [Moles/Vol] 3.7 mmol/L Normal 3.5-5.1 [facility] Comment on above: Performed By: #### C OVID19 FLU RSV, CEPHEID NEG #### [place] [address] [place] Protein [Mass/Vol] 7.0 g/dL Normal 6.4-8.9 [facility] Comment on above: Performed By: #### C OVID19 FLU RSV, CEPHEID NEG #### [place] [address] [place] Sodium [Moles/Vol] 137 mmol/L Normal 136-145 [facility] Comment on above: Performed By: #### C OVID19 FLU RSV, CEPHEID NEG #### [place] [address] [place] Urea nitrogen [Mass/Vol] 7 mg/dL Normal 7-25 [facility] Comment on above: Performed By: #### C OVID19 FLU RSV, CEPHEID NEG #### [place] [address] [place] Creatinine [Mass/volume] in Serum or PlasmaOrdered By: Marvin Serrano on 08-06-2024 Creatinine [Mass/Vol] Creatinine [Mass/v olume] in Serum or Plasma 0.60-1.20 [facility] Dipstick and Microscopicon 1 10-06-2023 Appearance (U) Clear Normal Clear [facility] Comment on above: Order Comment: Name Collection Type:: Clean-Voided Midstream Performed By: #### A DDONUAPLUS, UHCG, URDS #### [address] Bacteria,Urine Rare Normal None Seen [facility] Comment on above: Order Comment: Name Collection Type:: Clean-Voided Midstream Performed By: #### A DDONUAPLUS, UHCG, URDS #### [place] [address] [place] Bilirubin,Urine Negative Normal Negative [facility] Comment on above: Order Comment: Name Collection Type:: Clean-Voided Midstream Performed By: #### A DDONUAPLUS, UHCG, URDS #### [place] [address] [place] Color (U) Light-Yellow Normal Yellow [facility] Comment on above: Order Comment: Name Collection Type:: Clean-Voided Midstream Performed By: #### A DDONUAPLUS, UHCG, URDS #### [address] Glucose Ql (U) Normal Normal Normal [facility] Comment on above: Order Comment: Name Collection Type:: Clean-Voided Midstream Performed By: #### A DDONUAPLUS, UHCG, URDS #### [place] [address] [place] Hyaline Casts,Urine None Normal 0-8 [facility] Comment on above: Order Comment: Name Collection Type:: Clean-Voided Midstream Performed By: #### A DDONUAPLUS, UHCG, URDS #### [address] Ketones Ql (U) 3+ High Negative [facility] Comment on above: Order Comment: Name Collection Type:: Clean-Voided Midstream Performed By: #### A DDONUAPLUS, UHCG, URDS #### [address] Leukocyte esterase Test strip Ql (U) Negative Normal Negative [facility] Comment on above: Order Comment: Name Collection Type:: Clean-Voided Midstream Performed By: #### A DDONUAPLUS, UHCG, URDS #### [address] Mucus,Urine Rare Normal [facility] Comment on above: Order Comment: Name Collection Type:: Clean-Voided Midstream Performed By: #### A DDONUAPLUS, UHCG, URDS #### [address] Nitrite,Urine Negative Normal Negative [facility] Comment on above: Order Comment: Name Collection Type:: Clean-Voided Midstream Performed By: #### A DDONUAPLUS, UHCG, URDS #### [address] Occult Blood,Urine Trace High Negative [facility] Comment on above: Order Comment: Name Collection Type:: Clean-Voided Midstream Performed By: #### A DDONUAPLUS, UHCG, URDS #### [address] pH (U) 7.0 [pH] Normal 5.0-9.0 [facility] Comment on above: Order Comment: Name Collection Type:: Clean-Voided Midstream Performed By: #### A DDONUAPLUS, UHCG, URDS #### [place] [address] [place] Protein,Urine Negative Normal Negative [facility] Comment on above: Order Comment: Name Collection Type:: Clean-Voided Midstream Performed By: #### A DDONUAPLUS, UHCG, URDS #### [address] RBC,Urine 1 [HPF] Normal 0-4 [facility] Comment on above: Order Comment: Name Collection Type:: Clean-Voided Midstream Performed By: #### A DDONUAPLUS, UHCG, URDS #### [address] Specificy [place],Urine 1.016 Normal 1.001-1.03 0 [facility] Comment on above: Order Comment: Name Collection Type:: Clean-Voided Midstream Performed By: #### A DDONUAPLUS, UHCG, URDS #### [address] Squamous Epithelial Cell,Urine 5 [HPF] High 0-2 [facility] Comment on above: Order Comment: Name Collection Type:: Clean-Voided Midstream Performed By: #### A DDONUAPLUS, UHCG, URDS #### [address] Urobilinogen,Urine Normal Normal Normal [facility] Comment on above: Order Comment: Name Collection Type:: Clean-Voided Midstream Performed By: #### A DDONUAPLUS, UHCG, URDS #### [address] WBC,Urine 1 [HPF] Normal 0-4 [facility] Comment on above: Order Comment: Name Collection Type:: Clean-Voided Midstream Performed By: #### A DDONUAPLUS, UHCG, URDS #### [place] [address] [place] Drug Screen,Urineon 08-06-20 24 Amphetamine Screen,Urine Negative Normal Negative [facility] Comment on above: Performed By: #### A DDONUAPLUS, UHCG, URDS #### [address] Barbiturate Screen,Urine Negative Normal Negative [facility] Comment on above: Performed By: #### A DDONUAPLUS, UHCG, URDS #### [address] Benzodiazepines Screen,Urine Negative Normal Negative [facility] Comment on above: Performed By: #### A DDONUAPLUS, UHCG, URDS #### [address] Cannabinoid Screen,Urine Negative Normal Negative [facility] Comment on above: Result Comment: Thes e are unconfirmed results and should not be used for legal purposes. Drug Cut-Off Concentration: AMPH 1000 ng/mL BEKA 200 ng/mL CALDERON 200 ng/mL COCM 300 ng/mL OP 300 ng/mL PCP 25 ng/mL THC 20 ng/mL PERFORMED BY: [place] [address] [employer] TRISTEN MOSELEY M.D. Performed By: #### A DDONUAPLUS, UHCG, URDS #### [address] Cocaine Screen,Urine Negative Normal Negative [facility] Comment on above: Performed By: #### A DDONUAPLUS, UHCG, URDS #### [address] Opiate Screen,Urine Negative Normal Negative [facility] Comment on above: Performed By: #### A DDONUAPLUS, CG, URDS #### [address] Phencyclidine Screen,Urine Negative Normal Negative [facility] Comment on above: Performed By: #### A DDONUAPLUS, UHCG, URDS #### [place] [address] [place] Eosinophils Auto (Bld) [#/Vo l]Ordered By: Marvin Serrano on 08-06-2024 Eosinophils (Bld) [#/Vol] Automated eosinophil count 0.0-0.45 [facility] Eosinophils/100 WBC Auto (Bl d)Ordered By: Marvin Serrano on 08-06-2024 Eosinophils/100 WBC (Bld) Automated eosinophil % . [facility] Epithelial cells.squamous [# /area] in Urine sediment by Automated countOrdered By: Marvin Serrano on 08-06-2024 Epithelial cells.squamous Auto (Urine sed) [#/Area] Epithelial cells.squamous [#/area] in Urine sediment by Automated count High 0-2 [facility] Erythrocyte distribution wid th Auto (RBC) [Ratio]Ordered By: Marvin Serrano on 08-06-2024 Erythrocyte distribution width (RBC) [Ratio] Erythrocyte distribution width [Ratio] by Automated count 11.9-15.3 [facility] Erythrocytes [#/area] in Uri ne sediment by Automated countOrdered By: Marvin Serrano on 08-06-2024 RBC Auto (Urine sed) [#/Area] Erythrocytes [#/area] in Urine sediment by Automated count 0-4 [facility] Ethanol [Mass/volume] in Ser um or PlasmaOrdered By: Marvin Serrano on 08-06-2024 Ethanol [Mass/Vol] Ethanol [Mass/volume ] in Serum or Plasma [facility] Comment on above: Test not performed Ethyl Alcohol Profileon 07-19 Ethanol [Mass/Vol] mg/dL Normal [facility] Comment on above: Performed By: #### C OVID19 FLU RSV, CEPHEID NEG #### [facility] [address] [place] [address] Percent Ethanol Not performed Normal [facility] Comment on above: Result Comment: PERF ORMED BY: [place] [address] [employer] TRISTEN MOSELEY M.D. Performed By: #### C OVID19 FLU RSV, CEPHEID NEG #### [address] Globulin Calc (S) [Mass/Vol] Ordered By: Marvin Serrano on 08-06-2024 Globulin (S) [Mass/Vol] Serum globulin measurement by calculation (mass/volume) [facility] Glucose [Mass/volume] in Ser um or PlasmaOrdered By: Marvin Serrano on 08-06-2024 Glucose [Mass/Vol] Glucose [Mass/volume ] in Serum or Plasma 70-100 [facility] Comment on above: ADA recommended refe [...] [Mass/volume] in Urine by Test strip Normal [facility] HCG ( test) [place].rapi d Ql (U)Ordered By: Marvin Serrano on 08-06-2024 HCG ( test) Ql (U) Urine human chorionic gonadotropin (hCG) detection by immunoassay [facility] HCG,Quantitativeon HCG,Quantitative 32783.00 m[iU]/mL Normal [facility] Comment on above: Result Comment: Appr oximate Approximate hCG Gestational Age Range (mIU/ml) (weeks) 0.2-1 5-50 1-2 50-500 2-3 100-5,000 3-4 500-10,000 4-5 1,000-50,000 5-6 10,000-100,000 6-8 15,000-200,000 8-12 10,000-100,000 PERFORMED BY: [place] [address] [employer] TRISTEN MOSELEY M.D. Performed By: #### C OVID19 FLU RSV, CEPHEID NEG #### [facility] [address] [place] [address] HCG,Urineon 08-06-2024 Beta HCG ( test) Ql (U) Positive [facility] Comment on above: Order Comment: Name Collection Type:: Clean-Voided Midstream Result Comment: PERF ORMED BY: [place] [address] [employer] TRISTEN MOSELEY M.D. Performed By: #### A DDONUAPLUS, UHCG, URDS #### [facility] [address] [place] [address] Hematocrit Auto (Bld) [Volum e fraction]Ordered By: Marvin Serrano on 08-06-2024 Hematocrit (Bld) [Volume fraction] Hematocrit [Volume Fraction] of Blood by Automated count Low 34.0-46.4 [facility] Hemoglobin Test strip Ql (U) Ordered By: Marvin Serrano on 08-06-2024 Hemoglobin Ql (U) Hemoglobin [Presence ] in Urine by Test strip High Negative [facility] Hemoglobin [Mass/volume] in BloodOrdered By: Marvin Serrano on 08-06-2024 Hemoglobin (Bld) [Mass/Vol] Hemoglobin [Mass/volume] in Blood Low 11.8-15.4 [facility] Hyaline casts [#/area] in Ur ine sediment by Automated countOrdered By: Marvin Serrano on 08-06-2024 Hyaline casts Auto (Urine sed) [#/Area] Hyaline casts [#/area] in Urine sediment by Automated count 0-8 [facility] Ketones Test strip Ql (U)Ord ered By: Marvin Serrano on 08-06-2024 Ketones Ql (U) Ketones [Presence] i n Urine by Test strip High Negative [facility] Leukocyte esterase [Presence ] in Urine by Test stripOrdered By: Marvin Serrano on 08-06-2024 Leukocyte esterase Test strip Ql (U) Leukocyte esterase [Presence] in Urine by Test strip Negative [facility] Leukocytes [#/area] in Urine sediment by Automated countOrdered By: Marvin Serrano on 08-06-2024 WBC Auto (Urine sed) [#/Area] Leukocytes [#/area] in Urine sediment by Automated count 0-4 [facility] Leukocytes [#/volume] correc delmer for nucleated erythrocytes in Blood by Automated counOrdered By: Marvin Serrano on 08-06-2024 WBC corrected for nucl RBC Auto (Bld) [#/Vol] Leukocytes [#/volume] corrected for nucleated erythrocytes in Blood by Automated coun 3.8-11.6 [facility] Lipid Panelon 08-06-2024 Cholesterol [Mass/Vol] 128 mg/dL Low 140-200 Th e [facility] Comment on above: Order Comment: Name Collection Type:: Clean-Voided Midstream Result Comment: Chol less than 200 mg/dl low risk Chol 201-239 mg/dl borderline risk Chol 240 mg/dl and greater high risk Performed By: #### A DDONUAPLUS, UHCG, URDS #### [address] Cholesterol in HDL [Mass/Vol] 59 mg/dL Normal 23-92 [facility] Comment on above: Order Comment: Name Collection Type:: Clean-Voided Midstream Result Comment: HDL CHOL ATP-III CLASSIFICATION Cardiovascular Risk HDL > or equal to 60 mg/dL LOW HDL < 40 mg/dL HIGH Performed By: #### A DDONUAESDRAS LOAIZAG, URDS #### [facility] [address] Cholesterol.total/Chol esterol in HDL [Mass ratio] 2.2 {ratio} Normal <5.0 [facility] Comment on above: Order Comment: Name Collection Type:: Clean-Voided Midstream Performed By: #### A DDDOMINGOUAMYLES LOAIZA, URDS #### [facility] [address] LDL Cholesterol,Calculated 63 mg/dL Normal 0-100 [facility] Comment on above: Order Comment: Name Collection Type:: Clean-Voided Midstream Result Comment: LDL ATP III CLASSIFICATION LDL less than 100 mg/dL Optimal LDL 100-129 mg/dL Near or above optimal LDL 130-159 mg/dL Borderline high LDL 160-189 mg/dL High LDL greater than 189 mg/dL Very high Performed By: #### A ÓSCARUAMYLES LOAIZA, URDS #### [facility] [address] Triglyceride w/Reflex 29 mg/dL Normal 0-149 [facility] Comment on above: Order Comment: Name Collection Type:: Clean-Voided Midstream Result Comment: TRIG ATP III CLASSIFICATION TRIG less than 150 mg/dL Normal TRIG 150-199 mg/dL Borderline high TRIG 200-500 mg/dL High TRIG greater than 500 mg/dL Very high Standard traceable to the Center for Disease Conrtrol and Prevention (CDC) test method. Performed By: #### A DDDOMINGOUAPLUSESDRASG, URDS #### [facility] [address] VLDL CHOLESTEROL 5 mg/dL Normal [facility] Comment on above: Order Comment: Name Collection Type:: Clean-Voided Midstream Performed By: #### A DDONUAPLUS, UHCG, URDS #### [facility] [address] [place] [id number] [facility] Lymphocytes Auto (Bld) [#/Vo l]Ordered By: Marvin Serrano on 08-06-2024 Lymphocytes (Bld) [#/Vol] Lymphocytes [#/volume] in Blood by Automated count 1.00-4.8 [facility] Lymphocytes/100 WBC Auto (Bl d)Ordered By: Marvin Serrano on 08-06-2024 Lymphocytes/100 WBC (Bld) Lymphocytes/100 leukocytes in Blood by Automated count . [facility] MCH Auto (RBC) [Entitic mass ]Ordered By: Marvin Serrano on 08-06-2024 MCH (RBC) [Entitic mass] MCH [Entitic mass] by Automated count Low 24.7-34.3 [facility] MCHC Auto (RBC) [Mass/Vol]Or dered By: Marvin Serrano on 08-06-2024 MCHC (RBC) [Mass/Vol] MCHC [Mass/volume] by Automated count Low 32.0-35.0 [facility] MCV Auto (RBC) [Entitic vol] Ordered By: Marvin Serrano on 08-06-2024 MCV (RBC) [Entitic vol] MCV [Entitic volume] by Automated count Low 80-100 [facility] Monocyte distribution width [Entitic volume] in Blood by AutomatedOrdered By: Marvin Serrano on 08-06-2024 Monocyte distribution width Auto (Bld) [Entitic vol] Monocyte distribution width [Entitic volume] in Blood by Automated 0.00-20.00 [facility] Monocytes Auto (Bld) [#/Vol] Ordered By: Marvin Serrano on 08-06-2024 Monocytes (Bld) [#/Vol] Automated blood monocyte count 0.0-0.8 [facility] Monocytes/100 WBC Auto (Bld) Ordered By: Marvin Serrano on 08-06-2024 Monocytes/100 WBC (Bld) Automated monocyte % . [facility] Mucus [Presence] in Urine by AutomatedOrdered By: Marvin Serrano on 08-06-2024 Mucus Auto Ql (U) Mucus [Presence] in Urine by Automated [facility] Neutrophils Auto (Bld) [#/Vo l]Ordered By: Marvin Serrano on 08-06-2024 Neutrophils (Bld) [#/Vol] Neutrophils [#/volume] in Blood by Automated count 1.8-7.7 [facility] Neutrophils/100 WBC Auto (Bl d)Ordered By: Marvin Serrano on 08-06-2024 Neutrophils/100 WBC (Bld) Automated neutrophil % . [facility] Nitrite Test strip Ql (U)Ord ered By: Marvin Serrano on 08-06-2024 Nitrite Ql (U) Nitrite [Presence] i n Urine by Test strip Negative [facility] No Panel InformationOrdered By: Marvin Serrano on 08-06-2024 Estimated GFR (CKD-EPI) > 60.0 mL/Min [facility] Creatinine Clearance (Chem 119.09 [facility] Nucleated erythrocytes [Pres ence] in Blood by Automated countOrdered By: Marvin Serarno on 08-06-2024 Nucleated RBC Auto Ql (Bld) Nucleated erythrocytes [Presence] in Blood by Automated count 0-0.5 [facility] Opiates [Presence] in Urine by Screen methodOrdered By: Marvin Serrano on 08-06-2024 Opiates Screen Ql (U) Opiates [Presence] in Urine by Screen method Negative [facility] Phencyclidine Screen Ql (U)O rdered By: Marvin Serrano on 08-06-2024 Phencyclidine Ql (U) Phencyclidine [Pres ence] in Urine by Screen method Negative [facility] Platelet mean volume Auto (B ld) [Entitic vol]Ordered By: Marvin Serrano on 08-06-2024 Platelet mean volume (Bld) [Entitic vol] Platelet mean volume [Entitic volume] in Blood by Automated count 6.3-10.7 [facility] Platelets Auto (Bld) [#/Vol] Ordered By: Marvin Serrano on 08-06-2024 Platelets (Bld) [#/Vol] Platelets [#/volume] in Blood by Automated count 150-450 [facility] Potassium [Moles/volume] in Serum or PlasmaOrdered By: Marvin Serrano on 08-06-2024 Potassium [Moles/Vol] Potassium [Moles/v olume] in Serum or Plasma 3.5-5.1 [facility] Protein Test strip (U) [Mass /Vol]Ordered By: Marvin Serrano on 08-06-2024 Protein (U) [Mass/Vol] Protein [Mass/vol ume] in Urine by Test strip Negative [facility] Protein [Mass/volume] in Ser um or PlasmaOrdered By: Marvin Serrano on 08-06-2024 Protein [Mass/Vol] Protein [Mass/volume ] in Serum or Plasma 6.4-8.9 [facility] RBC Auto (Bld) [#/Vol]Ordere d By: Marvin Serrano on 08-06-2024 RBC (Bld) [#/Vol] Erythrocytes [#/volu me] in Blood by Automated count 3.60-5.00 [facility] Serum or plasma albumin/glob ulin mass ratioOrdered By: Marvin Serrano on 08-06-2024 Albumin/Globulin [Mass ratio] Serum or plasma albumin/globulin mass ratio [facility] Serum or plasma anion gap de terminationOrdered By: Marvin Serrano on 08-06-2024 Anion gap [Moles/Vol] Serum or plasma an ion gap determination 6.0-15.0 [facility] Sodium [Moles/volume] in Ser um or PlasmaOrdered By: Marvin Serrano on 08-06-2024 Sodium [Moles/Vol] Sodium [Moles/volume ] in Serum or Plasma 136-145 [facility] Specific gravity Test strip (U) [Rel density]Ordered By: Marvin Serrano on 08-06-2024 Specific gravity (U) [Rel density] Specific gravity of Urine by Test strip 1.001-1.03 0 [facility] Thyroid Stim Hormone w/Rflxo n 08-06-2024 Thyroid Stim Hormone w/Rflx 1.33 u[iU]/mL Normal 0.45-5.33 [facility] Comment on above: Order Comment: Name Collection Type:: Clean-Voided Midstream Performed By: #### A DDONUAPLUS, UHCG, URDS #### [facility] [address] Urea nitrogen [Mass/volume] in Serum or PlasmaOrdered By: Marvin Serrano on 08-06-2024 Urea nitrogen [Mass/Vol] Urea nitrogen [Mass/volume] in Serum or Plasma 7-25 [facility] Urobilinogen Test strip (U) [Mass/Vol]Ordered By: Marvin Serrano on 08-06-2024 Urobilinogen (U) [Mass/Vol] Urobilinogen [Mass/volume] in Urine by Test strip Normal [facility] Vitamin D 25 Hydroxy Totalon 08-06-2024 Vitamin D 25 Hydroxy Total 9.7 ng/mL Low 30-100 [facility] Comment on above: Order Comment: Name Collection Type:: Clean-Voided Midstream Result Comment: ALEXIA MIN D STATUS 25(OH)VITAMIN D RANGE (ng/mL) Deficient <20 Insufficient 20 to <30 Sufficient 30 to 100 Reference: Pam MF,Abelardo MUÑOZ, Cj GARZA, et al. Evaluation,treatment, and prevention of vitamin D deficiency; an Endocrine Society clinical practice guideline. JCEM. 2010; 96(7):1911-30. PERFORMED BY: [place] [address] PATH[employer] TRISTEN MOSELEY M.D. Performed By: #### A JAROCHO, [facility], URDS #### [address] WBC Auto (Bld) [#/Vol]Ordere d By: Marvin Serrano on 08-06-2024 WBC (Bld) [#/Vol] Leukocytes [#/volume ] in Blood by Automated count 3.8-11.6 [facility] pH Test strip (U)Ordered By: Marvin Serrano on 08-06-2024 pH (U) pH of Urine by Test strip 5.0-9.0 [facility] PREG QUANT HCGon 024 HCG QUANTITATIVE 4763 mIU/mL [facility] Comment on above: 5-50 0.2-1 WEEK 50-500 1-2 WEEKS 100-5,000 2-3 WEEKS 500-10,000 3-4 WEEKS 1,000-50,000 4-5 WEEKS 10,000-100,000 5-6 WEEKS 15,000-200,000 6-8 WEEKS 10,000-100,000 2-3 [facility] PREG QUANT HCGon 024 HCG QUANTITATIVE 2355 mIU/mL [facility] Comment on above: 5-50 0.2-1 WEEK 50-500 1-2 WEEKS 100-5,000 2-3 WEEKS 500-10,000 3-4 WEEKS 1,000-50,000 4-5 WEEKS 10,000-100,000 5-6 WEEKS 15,000-200,000 6-8 WEEKS 10,000-100,000 2[facility] Alanine aminotransferase [En zymatic activity/volume] in Serum or PlasmaOrdered By: Sarah Blandon on 07-14-2024 ALT [Catalytic activity/Vol] 9 U/L Normal [facility] Comment on above: Performed By: #### A JAROCHO [facility], URDS #### [facility] [address] ALT [Catalytic activity/Vol] Alanine aminotransferase [Enzymatic activity/volume] in Serum or Plasma [facility] Albumin [Mass/volume] in Ser um or Plasma by Bromocresol green (BCG) dye binding methoOrdered By: Sarah Blandon on 07-14-2024 Albumin BCG dye [Mass/Vol] 4.1 g/dL 3.5-5.7 [facility] Albumin BCG dye [Mass/Vol] Albumin [Mass/volume] in Serum or Plasma by Bromocresol green (BCG) dye binding metho 3.5-5.7 [facility] Alkaline phosphatase [Enzyma tic activity/volume] in Serum or PlasmaOrdered By: Sarah Blandon on 07-14-2024 ALP [Catalytic activity/Vol] 48 U/L Normal 34-104 [facility] Comment on above: Performed By: #### A JAROCHO [facility], URDS #### [facility] [address] [place] [id number] [facility] ALP [Catalytic activity/Vol] Alkaline phosphatase [Enzymatic activity/volume] in Serum or Plasma 34-104 [facility] Appearance of UrineOrdered B y: Sarah Blandon on 07-14-2024 Appearance (U) Urine appearance [facility] Aspartate aminotransferase [ Enzymatic activity/volume] in Serum or PlasmaOrdered By: Sarah Blandon on 07-14-2024 AST [Catalytic activity/Vol] 14 U/L Normal 13-39 [facility] Comment on above: Performed By: #### A JAROCHO [facility], URDS #### [address] AST [Catalytic activity/Vol] Aspartate aminotransferase [Enzymatic activity/volume] in Serum or Plasma [facility] Automated basophil %Ordered By: Sarah Blandon on 07-14-2024 Basophils/100 WBC (Bld) 0.4 % Normal . [facility] Comment on above: Performed By: #### A JAROCHO [facility], URDS #### [address] Automated basophil countOrde red By: Sarah Blandon on 07-14-2024 Basophils (Bld) [#/Vol] 0.0 10*3/uL Normal 0.0-0.2 [facility] Comment on above: Result Comment: PERF ORMED BY: [place] [address] [employer] CLAU ZAVALA M.D. Performed By: #### A JAROCHO [facility], URDS #### [address] Automated blood monocyte cou ntOrdered By: Sarah Blandon on 07-14-2024 Monocytes (Bld) [#/Vol] 0.5 10*3/uL Normal 0.0-0.8 [facility] Comment on above: Performed By: #### [facility] #### [address] Automated eosinophil %Ordere d By: Sarah Blandon on 07-14-2024 Eosinophils/100 WBC (Bld) 0.6 % Normal . [facility] Comment on above: Performed By: #### A JAROCHO [facility], URDS #### [address] Automated eosinophil countOr dered By: Sarah Blandon on 07-14-2024 Eosinophils (Bld) [#/Vol] 0.0 10*3/uL Normal 0.0-0.45 [facility] Comment on above: Performed By: #### A MYLES AVENDAÑO, URDS #### [address] Automated monocyte %Ordered By: Sarah Blandon on 07-14-2024 Monocytes/100 WBC (Bld) 12.3 % Normal . [facility] Comment on above: Performed By: #### A MYLES AVENDAÑO, URDS #### [address] Automated neutrophil %Ordere d By: Sarah Blandon on 07-14-2024 Neutrophils/100 WBC (Bld) 63.5 % Normal . [facility] Comment on above: Performed By: #### A MYLES AVENDAÑO, URDS #### [address] Bacteria [Presence] in Urine by AutomatedOrdered By: Sarah Blandon on 07-14-2024 Bacteria Auto Ql (U) Rare [HPF] None Seen [facility] Bacteria Auto Ql (U) Bacteria [Presence] in Urine by Automated None Seen [facility] Basic Metabolic Panelon 06-18 Creatinine Clr Calc Pharmacy 107.14 Normal [facility] Comment on above: Performed By: #### A MYLES AVENDAÑO, URDS #### [address] GFR/1.73 sq M.predicted MDRD (S/P/Bld) [Vol rate/Area] mL/min/{1.73_m2} Normal [facility] Comment on above: Performed By: #### A MYLES AVENDAÑO, URDS #### [address] Basophils Auto (Bld) [#/Vol] Ordered By: Sarah Blandon on 07-14-2024 Basophils (Bld) [#/Vol] Automated basophil count 0.0-0.2 [facility] Basophils/100 WBC Auto (Bld) Ordered By: Sarah Blandon on 07-14-2024 Basophils/100 WBC (Bld) Automated basophil % . [facility] Bilirubin Test strip Ql (U)O rdered By: Sarah Blandon on 07-14-2024 Bilirubin Ql (U) Negative Negative [facility] Bilirubin Ql (U) Bilirubin.total [Pre sence] in Urine by Test strip Negative [facility] Bilirubin.direct [Mass/volum e] in Serum or PlasmaOrdered By: Sarah Blandon on 07-14-2024 Bilirubin.direct [Mass/Vol] 0.10 mg/dL 0.03-0.18 [facility] Bilirubin.direct [Mass/Vol] Bilirubin.direct [Mass/volume] in Serum or Plasma 0.03-0.18 [facility] Bilirubin.total [Mass/volume ] in Serum or PlasmaOrdered By: Sarah Blandon on 07-14-2024 Bilirubin [Mass/Vol] 0.4 mg/dL Normal 0.3-1.0 [facility] Comment on above: Performed By: #### A DDONUAPLUS, [facility], URDS #### [facility] [address] [place] [address] Bilirubin [Mass/Vol] Bilirubin.total [Mass/volume] in Serum or Plasma 0.3-1.0 [facility] COVID CepheidOrdered By: Macarena Blandon on 07-14-2024 SARS-CoV-2 (COVID-19) Ab IA Ql Negative Negative [facility] Comment on above: This is a duplicate Cepheid Xpert Xpress CoV-2/Flu/RSV Plus RNA by RT-PCR result to be used for statistical tracking purpose only. SARS-CoV-2 (COVID-19) RNA HIRAM+probe Ql (Unsp spec) [facility] COVID Cepheid NegativeOrdere d By: Sarah Blandon on 07-14-2024 SARS-CoV-2 (COVID-19) Ab IA Ql COVID Cepheid Negative [facility] Comment on above: This is a [...] or Cepheid Disclaimer revoked sooner. PERFORMED BY: [facility] [place] [address] PATH[employer] CLAU ZAVALA M.D. Normal [facility] Comment on above: Performed By: #### C OVID19 FLU RSV, CEPHEID NEG #### [facility] [address] abdomen pelvis w conon CT abdomen pelvis w con [facility] [place] [address] [place] [address] CT Scan Report Signed Patient: Leandra Fonseca MR#: [id number] : 1990 Acct:[id number] Age/Sex: 34 / F ADM Date: 07/14/24 Loc: ER Room: Type: [facility] ER Attending Dr: Copies to: [...] Mancera Jr., D.OJorge07/14/2024 2:43 PM Dictation Location: [place] [address] Transcribed By: [facility] 07/14/24 1443 Dictated By: Leroy Mancera Jr, DO 07/14/24 1438 Signed By: 07/14/24 1443 Normal [facility] Calcium [Mass/volume] in Ser um or PlasmaOrdered By: Sarah Blandon on 07-14-2024 Calcium [Mass/Vol] 8.9 mg/dL Normal 8.6-10.3 [facility] Comment on above: Performed By: #### A JAROCHO Ivelisse, URDS #### [address] Calcium [Mass/Vol] Calcium [Mass/volume ] in Serum or Plasma 8.6-10.3 [facility] Carbon dioxide, total [Moles /volume] in Serum or PlasmaOrdered By: Sarah Blandon on 07-14-2024 CO2 [Moles/Vol] 25.2 mmol/L Normal 21.0-31.0 [facility] Comment on above: Performed By: #### A JAROCHO KATHERYN, URDS #### [place] [id number] [facility] CO2 [Moles/Vol] Carbon dioxide, tota l [Moles/volume] in Serum or Plasma 21.0-31.0 [facility] Cepheid COVID PCR Negativeon 07-14-2024 SARS-CoV-2 (COVID-19) RNA HIRAM+probe Ql (Unsp spec) Negative Normal Negative [facility] Comment on above: Result Comment: This is a duplicate Cepheid Xpert Xpress CoV-2/Flu/RSV Plus RNA by RT-PCR result to be used for statistical tracking purpose only. PERFORMED BY: [place] [address] [employer] CLAU ZAVALA M.D. Performed By: #### C OVID19 FLU RSV, CEPHEID NEG #### [place] [address] [place] Chloride [Moles/volume] in S salas or PlasmaOrdered By: Sarah Blandon on 07-14-2024 Chloride [Moles/Vol] 105 mmol/L Normal -107 [facility] Comment on above: Performed By: #### A DDONUAPLUS, UHCG, URDS #### [place] [address] [place] Chloride [Moles/Vol] Chloride [Moles/vol ume] in Serum or Plasma 98-107 [facility] Color Auto (U)Ordered By: Godfrey Blandon on 07-14-2024 Color (U) Color of Urine by Auto Yellow Fi [facility] Color of Urine by AutoOrdere d By: Sarah Blandon on 07-14-2024 Color (U) Yellow Normal Yellow [facility] Comment on above: Order Comment: Name Collection Type:: Clean-Voided Midstream Performed By: #### A DDONUAPLUS, UHCG, URDS #### [address] Complete Blood Count Auto Di ffon 07-14-2024 Mean Corpuscular HGB Conc 32.2 g/dL Normal 32.0-35.0 [facility] Comment on above: Performed By: #### A DDONUAPLUS, UHCG, URDS #### [address] Monocytes/100 WBC (Bld) 20.43 % High 0.00-20.00 [facility] Comment on above: Result Comment: For adults in ED, MDW > 20.0 may be associated with a higher risk of sepsis during the first 12 hrs of hospital admission Performed By: #### A DDONUAPLUS, UHCG, URDS #### [address] NRBC% 0.1 /100{WBC} Normal 0-0.5 [facility] Comment on above: Performed By: #### A DDONUAPLUS, UHCG, URDS #### [facility] [address] [place] [address] Creatinine [Mass/volume] in Serum or PlasmaOrdered By: Sarah Blandon on 07-14-2024 Creatinine [Mass/Vol] 0.71 mg/dL Normal 0.60-1.20 [facility] Comment on above: Performed By: #### A DDONUAPLUS, UHCG, URDS #### [address] Creatinine [Mass/Vol] Creatinine [Mass/v olume] in Serum or Plasma 0.60-1.20 [facility] Dipstick and Microscopicon 1 Bacteria,Urine Rare Normal None Seen [facility] Comment on above: Order Comment: Name Collection Type:: Clean-Voided Midstream Performed By: #### A DDONUAPLUS, UHCG, URDS #### [address] Bilirubin,Urine Negative Normal Negative [facility] Comment on above: Order Comment: Name Collection Type:: Clean-Voided Midstream Performed By: #### A DDONUAPLUS, UHCG, URDS #### [address] Glucose Ql (U) Normal Normal Normal [facility] Comment on above: Order Comment: Name Collection Type:: Clean-Voided Midstream Performed By: #### A DDONUAPLUS, UHCG, URDS #### [place] [address] [place] Hyaline Casts,Urine None Normal 0-8 [facility] Comment on above: Order Comment: Name Collection Type:: Clean-Voided Midstream Performed By: #### A DDONUAPLUS, UHCG, URDS #### [place] [address] [place] Mucus,Urine 2+ Critically abnormal [facility] Comment on above: Order Comment: Name Collection Type:: Clean-Voided Midstream Performed By: #### A DDONUAPLUS, UHCG, URDS #### [place] [address] [place] Nitrite,Urine Negative Normal Negative [facility] Comment on above: Order Comment: Name Collection Type:: Clean-Voided Midstream Performed By: #### A DDONUAPLUS, UHCG, URDS #### [address] Occult Blood,Urine 1+ High Negative [facility] Comment on above: Order Comment: Name Collection Type:: Clean-Voided Midstream Performed By: #### A DDONUAPLUS, UHCG, URDS #### [address] RBC,Urine 20-49 High 0-4 [facility] Comment on above: Order Comment: Name Collection Type:: Clean-Voided Midstream Performed By: #### A DDONUAPLUS, UHCG, URDS #### [address] Specificy [place],Urine 1.030 Normal 1.001-1.03 0 [facility] Comment on above: Order Comment: Name Collection Type:: Clean-Voided Midstream Performed By: #### A DDONUAPLUS, UHCG, URDS #### [address] Squamous Epithelial Cell,Urine 5-9 High 0-2 [facility] Comment on above: Order Comment: Name Collection Type:: Clean-Voided Midstream Performed By: #### A DDONUAPLUS, UHCG, URDS #### [address] Urobilinogen,Urine 3 mg/dL High Normal [facility] Comment on above: Order Comment: Name Collection Type:: Clean-Voided Midstream Performed By: #### A DDONUAPLUS, UHCG, URDS #### [address] WBC,Urine 5-9 High 0-4 [facility] Comment on above: Order Comment: Name Collection Type:: Clean-Voided Midstream Performed By: #### A DDONUAPLUS, UHCG, URDS #### [facility] [address] [place] [id number] [facility] ECG 12 lead ECGon 07-14-2024 ECG 12 lead ECG [facility] [address] [place] [address] [place] [address] Electrocardiograph Report Signed Patient: Leandra Fonseca MR#: [id number] : 1990 Acct:[id number] Age/Sex: 34 / F ADM Date: 07/14/24 Loc: ER Room: Type: [facility] ER Attending Dr: Ordering Provider: Sarah Blandon DO Date of Service: 07/14/24 ECG/ECG 12 [...] sinus rhythm Confirmed by Glenroy Weldon DO ([id number]) on 07/14/2024 8:07:49 PM Referred By: Electronically Signed By: Glenroy Weldon DO Transcribed By: MUS Signed By Glernoy Weldon DO 2006 Normal [facility] Eosinophils Auto (Bld) [#/Vo l]Ordered By: Sarah Blandon on 07-14-2024 Eosinophils (Bld) [#/Vol] Automated eosinophil count 0.0-0.45 [facility] Eosinophils/100 WBC Auto (Bl d)Ordered By: Sarah Blandon on 07-14-2024 Eosinophils/100 WBC (Bld) Automated eosinophil % . [facility] Epithelial cells.squamous [# /area] in Urine sediment by Automated countOrdered By: Sarah Blandon on 07-14-2024 Epithelial cells.squamous Auto (Urine sed) [#/Area] 5-9 [HPF] High 0-2 [facility] Epithelial cells.squamous Auto (Urine sed) [#/Area] Epithelial cells.squamous [#/area] in Urine sediment by Automated count High 0-2 [facility] Erythrocyte distribution wid th Auto (RBC) [Ratio]Ordered By: Sarah Blandon on 07-14-2024 Erythrocyte distribution width (RBC) [Ratio] Erythrocyte distribution width [Ratio] by Automated count 11.9-15.3 [facility] Erythrocyte distribution wid th [Ratio] by Automated countOrdered By: Sarah Blandon on 07-14-2024 Erythrocyte distribution width (RBC) [Ratio] 13.7 % Normal 11.9-15.3 [facility] Comment on above: Performed By: #### A JAROCHO KATHERYN, URDS #### [facility] [address] Erythrocytes [#/area] in Uri ne sediment by Automated countOrdered By: Sarah Blandon on 07-14-2024 RBC Auto (Urine sed) [#/Area] 20-49 [HPF] High 0-4 [facility] RBC Auto (Urine sed) [#/Area] Erythrocytes [#/area] in Urine sediment by Automated count High 0-4 [facility] Erythrocytes [#/volume] in B lood by Automated countOrdered By: Sarah Blandon on 07-14-2024 RBC (Bld) [#/Vol] 4.57 10*6/uL Normal 3.60-5.00 [facility] Comment on above: Performed By: #### A YMLES AVENDAÑO, URDS #### [address] Globulin Calc (S) [Mass/Vol] Ordered By: Sarha Blandon on 07-14-2024 Globulin (S) [Mass/Vol] Serum globulin measurement by calculation (mass/volume) [facility] Glucose [Mass/volume] in Ser um or PlasmaOrdered By: Sarah Blandon on 07-14-2024 Glucose [Mass/Vol] 88 mg/dL Normal 70-100 [facility] Comment on above: ADA recommended refe rence rangeRandom Glucose Reference Range is dependent on time and content of last meal. Glucose of more than 200 mg/dL in a nonstressed, ambulatory subject supports the diagnosis of Diabetes Mellitus. Result Comment: [place] [facility] Glucose Reference Range is dependent on time and content of last meal. Glucose of more than 200 mg/dL in a nonstressed, ambulatory subject supports the diagnosis of Diabetes Mellitus. ADA recommended reference range Performed By: #### A DDONUAPLUS, [facility], [facility] #### [facility] [address] Glucose [Mass/Vol] Glucose [Mass/volume ] in Serum or Plasma 70-100 [facility] Comment on above: ADA recommended refe rence rangeRandom Glucose Reference Range is dependent on time and content of last meal. Glucose of more than 200 mg/dL in a nonstressed, ambulatory subject supports the diagnosis of Diabetes Mellitus. Glucose [Mass/volume] in Uri ne by Test stripOrdered By: Sarah Blandon on 07-14-2024 Glucose Test strip (U) [Mass/Vol] Normal mg/dL Normal [facility] Glucose Test strip (U) [Mass/Vol] Glucose [Mass/volume] in Urine by Test strip Normal [facility] HCG ( test) IA.rapi d Ql (U)Ordered By: PROVIDER CHESTER on 07-14-2024 HCG ( test) Ql (U) Negative [facility] HCG ( test) Ql (U) Urine human chorionic gonadotropin (hCG) detection by immunoassay [facility] HCG,Urineon 07-14-2024 Beta HCG ( test) Ql (U) Negative Normal [facility] Comment on above: Order Comment: Name Collection Type:: Clean-Voided Midstream Result Comment: PERF ORMED BY: [place] [address] PATH[employer] CLAU ZAVALA M.D. Performed By: #### A ÓSCARUAJOSSE, [facility], URDS #### [facility] [address] Hematocrit Auto (Bld) [Volum e fraction]Ordered By: Sarah Blandon on 07-14-2024 Hematocrit (Bld) [Volume fraction] Hematocrit [Volume Fraction] of Blood by Automated count Low 34.0-46.4 [facility] Hematocrit [Volume Fraction] of Blood by Automated countOrdered By: Sarah Blandon on 07-14-2024 Hematocrit (Bld) [Volume fraction] 33.4 % Low 34.0-46.4 [facility] Comment on above: Performed By: #### A MYLES AVENDAÑO, URDS #### [address] Hemoglobin Test strip Ql (U) Ordered By: Sarah Blandon on 07-14-2024 Hemoglobin Ql (U) 1+ High Negative [facility] Hemoglobin Ql (U) Hemoglobin [Presence ] in Urine by Test strip High Negative [facility] Hemoglobin [Mass/volume] in BloodOrdered By: Sarah Blandon on 07-14-2024 Hemoglobin (Bld) [Mass/Vol] 10.8 g/dL Low 11.8-15.4 [facility] Comment on above: Performed By: #### A MYLES AVENDAÑO, URDS #### [address] Hemoglobin (Bld) [Mass/Vol] Hemoglobin [Mass/volume] in Blood Low 11.8-15.4 [facility] Hepatic Panelon 07-14-2024 Albumin [Mass/Vol] 4.1 g/dL Normal 3.5-5.7 [facility] Comment on above: Performed By: #### A MLYES AVENDAÑO, URDS #### [address] Bilirubin,Indirect 0.3 mg/dL Normal [facility] Comment on above: Performed By: #### A MYLES AVENDAÑO, URDS #### [address] Bilirubin.indirect [Mass/Vol] 0.10 mg/dL Normal 0.03-0.18 [facility] Comment on above: Performed By: #### A MYLES AVENDAÑO, URDS #### [address] Hyaline casts [#/area] in Ur ine sediment by Automated countOrdered By: Sarah Blandon on 07-14-2024 Hyaline casts Auto (Urine sed) [#/Area] None [LPF] 0-8 [facility] Hyaline casts Auto (Urine sed) [#/Area] Hyaline casts [#/area] in Urine sediment by Automated count 0-8 [facility] Ketones Test strip Ql (U)Ord ered By: Sarah Blandon on 07-14-2024 Ketones Ql (U) Ketones [Presence] i n Urine by Test strip High Negative [facility] Ketones [Presence] in Urine by Test stripOrdered By: Sarah Blandon on 07-14-2024 Ketones Ql (U) 2+ High Negative [facility] Comment on above: Order Comment: Name Collection Type:: Clean-Voided Midstream Performed By: #### A DDONUAPLUS, UHCG, URDS #### [facility] [address] Leukocyte esterase [Presence ] in Urine by Test stripOrdered By: Sarah Blandon on 07-14-2024 Leukocyte esterase Test strip Ql (U) Negative Normal Negative [facility] Comment on above: Order Comment: Name Collection Type:: Clean-Voided Midstream Performed By: #### A DDONUAPLUS, UHCG, URDS #### [facility] [address] Leukocyte esterase Test strip Ql (U) Leukocyte esterase [Presence] in Urine by Test strip Negative [facility] Leukocytes [#/area] in Urine sediment by Automated countOrdered By: Sarah Blandon on 07-14-2024 WBC Auto (Urine sed) [#/Area] 5-9 [HPF] High 0-4 [facility] WBC Auto (Urine sed) [#/Area] Leukocytes [#/area] in Urine sediment by Automated count High 0-4 [facility] Leukocytes [#/volume] correc delmer for nucleated erythrocytes in Blood by Automated counOrdered By: Sarah Blandon on 07-14-2024 WBC corrected for nucl RBC Auto (Bld) [#/Vol] 4.3 10*3/uL 3.8-11.6 [facility] WBC corrected for nucl RBC Auto (Bld) [#/Vol] Leukocytes [#/volume] corrected for nucleated erythrocytes in Blood by Automated coun 3.8-11.6 [facility] Leukocytes [#/volume] in Blo od by Automated countOrdered By: Sarah Blandon on 07-14-2024 WBC (Bld) [#/Vol] 4.3 10*3/uL Normal 3.8-11.6 [facility] Comment on above: Performed By: #### A JAROCHO [facility], URDS #### [facility] [address] [place] [address] [place] Lipase [Enzymatic activity/v olume] in Serum or PlasmaOrdered By: Sarah Blandon on 07-14-2024 Lipase [Catalytic activity/Vol] 45.0 U/L Normal 11.0-82.0 [facility] Comment on above: Result Comment: PERF ORMED BY: [place] [address] [employer] CLAU ZAVALA M.D. Performed By: #### A JAROCHO [facility], URDS #### [address] Lipase [Catalytic activity/Vol] Lipase [Enzymatic activity/volume] in Serum or Plasma 11.0-82.0 [facility] Lymphocytes Auto (Bld) [#/Vo l]Ordered By: Sarah Blandon on 07-14-2024 Lymphocytes (Bld) [#/Vol] Lymphocytes [#/volume] in Blood by Automated count 1.00-4.8 [facility] Lymphocytes [#/volume] in Bl ood by Automated countOrdered By: Sarah Blandon on 07-14-2024 Lymphocytes (Bld) [#/Vol] 1.0 10*3/uL Normal 1.00-4.8 [facility] Comment on above: Performed By: #### A JAROCHO [facility], URDS #### [facility] [address] [place] [address] [place] Lymphocytes/100 WBC Auto (Bl d)Ordered By: Sarah Blandon on 07-14-2024 Lymphocytes/100 WBC (Bld) Lymphocytes/100 leukocytes in Blood by Automated count . [facility] Lymphocytes/100 leukocytes i n Blood by Automated countOrdered By: Sarah Blandon on 07-14-2024 Lymphocytes/100 WBC (Bld) 23.2 % Normal . [facility] Comment on above: Performed By: #### A MYLES AVENDAÑO, URDS #### [facility] [address] MCH Auto (RBC) [Entitic mass ]Ordered By: Sarah Blandon on 07-14-2024 MCH (RBC) [Entitic mass] MCH [Entitic mass] by Automated count Low 24.7-34.3 [facility] MCH [Entitic mass] by Automa delmer countOrdered By: Sarah Blandon on 07-14-2024 MCH (RBC) [Entitic mass] 23.5 pg Low 24.7-34.3 [facility] Comment on above: Performed By: #### A JAROCHO KATHERYN, URDS #### [facility] [address] MCHC Auto (RBC) [Mass/Vol]Or dered By: Sarah Blandon on 07-14-2024 MCHC (RBC) [Mass/Vol] 32.2 g/dL 32.0-35.0 [facility] MCHC (RBC) [Mass/Vol] MCHC [Mass/volume] by Automated count 32.0-35.0 [facility] MCV Auto (RBC) [Entitic vol] Ordered By: Sarah Blandon on 07-14-2024 MCV (RBC) [Entitic vol] MCV [Entitic volume] by Automated count Low 80-100 [facility] MCV [Entitic volume] by Auto mated countOrdered By: Sarah Blandon on 07-14-2024 MCV (RBC) [Entitic vol] 73.1 fL Low 80-100 [facility] Comment on above: Performed By: #### [facility] #### [facility] [address] Monocyte distribution width [Entitic volume] in Blood by AutomatedOrdered By: Sarah Blandon on 07-14-2024 Monocyte distribution width Auto (Bld) [Entitic vol] 20.43 % High 0.00-20.00 [facility] Comment on above: For adults in ED, MD W > 20.0 may be associated with a higher risk of sepsis during the first 12 hrs of hospital admission Monocyte distribution width Auto (Bld) [Entitic vol] Monocyte distribution width [Entitic volume] in Blood by Automated High 0.00-20.00 [facility] Comment on above: For adults in ED, MD W > 20.0 may be associated with a higher risk of sepsis during the first 12 hrs of hospital admission Monocytes Auto (Bld) [#/Vol] Ordered By: Sarah Blandon on 07-14-2024 Monocytes (Bld) [#/Vol] Automated blood monocyte count 0.0-0.8 [facility] Monocytes/100 WBC Auto (Bld) Ordered By: Sarah Blandon on 07-14-2024 Monocytes/100 WBC (Bld) Automated monocyte % . [facility] Mucus [Presence] in Urine by AutomatedOrdered By: Sarah Blandon on 07-14-2024 Mucus Auto Ql (U) 2+ [LPF] Abnormal [facility] Mucus Auto Ql (U) Mucus [Presence] in Urine by Automated Abnormal [facility] Neutrophils Auto (Bld) [#/Vo l]Ordered By: Sarah Blandon on 07-14-2024 Neutrophils (Bld) [#/Vol] Neutrophils [#/volume] in Blood by Automated count 1.8-7.7 [facility] Neutrophils [#/volume] in Bl ood by Automated countOrdered By: Sarah Blandon on 07-14-2024 Neutrophils (Bld) [#/Vol] 2.7 10*3/uL Normal 1.8-7.7 [facility] Comment on above: Performed By: #### A DDONUAPLUS, [facility], URDS #### [facility] [address] Neutrophils/100 WBC Auto (Bl d)Ordered By: Sarah Blandon on 07-14-2024 Neutrophils/100 WBC (Bld) Automated neutrophil % . [facility] Nitrite Test strip Ql (U)Ord ered By: Sarah Blandon on 07-14-2024 Nitrite Ql (U) Negative Negative [facility] Nitrite Ql (U) Nitrite [Presence] i n Urine by Test strip Negative [facility] No Panel InformationOrdered By: Sarah Blandon on 07-14-2024 Estimated GFR (CKD-EPI) > 60.0 mL/Min [facility] Creatinine Clearance (Chem 107.14 [facility] Nucleated erythrocytes [Pres ence] in Blood by Automated countOrdered By: Sarah Blandon on 07-14-2024 Nucleated RBC Auto Ql (Bld) 0.1 /100{WBC} 0-0.5 [facility] Nucleated RBC Auto Ql (Bld) Nucleated erythrocytes [Presence] in Blood by Automated count 0-0.5 [facility] Platelet mean volume Auto (B ld) [Entitic vol]Ordered By: Sarah Blandon on 07-14-2024 Platelet mean volume (Bld) [Entitic vol] Platelet mean volume [Entitic volume] in Blood by Automated count 6.3-10.7 [facility] Platelet mean volume [Entiti c volume] in Blood by Automated countOrdered By: Sarah Blandon on 07-14-2024 Platelet mean volume (Bld) [Entitic vol] 9.1 fL Normal 6.3-10.7 [facility] Comment on above: Performed By: #### A JAROCHO [facility], URDS #### [facility] [address] [place] [address] [place] Platelets Auto (Bld) [#/Vol] Ordered By: Sarah Blandon on 07-14-2024 Platelets (Bld) [#/Vol] Platelets [#/volume] in Blood by Automated count 150-450 [facility] Platelets [#/volume] in Bloo d by Automated countOrdered By: Sarah Blandon on 07-14-2024 Platelets (Bld) [#/Vol] 168 10*3/uL Normal 150-450 [facility] Comment on above: Performed By: #### A JAROCHO [facility], URDS #### [facility] [address] [place] [address] [place] Potassium [Moles/volume] in Serum or PlasmaOrdered By: Sarah Blandon on 07-14-2024 Potassium [Moles/Vol] 3.3 mmol/L Low 3.5-5.1 [facility] Comment on above: Performed By: #### A JAROCHO KATHERYN, URDS #### [address] Potassium [Moles/Vol] Potassium [Moles/v olume] in Serum or Plasma Low 3.5-5.1 [facility] Protein Test strip (U) [Mass /Vol]Ordered By: Sarah Blandon on 07-14-2024 Protein (U) [Mass/Vol] Protein [Mass/vol ume] in Urine by Test strip High Negative [facility] Protein [Mass/volume] in Ser um or PlasmaOrdered By: Sarah Blandon on 07-14-2024 Protein [Mass/Vol] 7.2 g/dL Normal 6.4-8.9 [facility] Comment on above: Performed By: #### A JAROCHO KATHERYN, URDS #### [address] Protein [Mass/Vol] Protein [Mass/volume ] in Serum or Plasma 6.4-8.9 [facility] Protein [Mass/volume] in Uri ne by Test stripOrdered By: Sarah Blandon on 07-14-2024 Protein (U) [Mass/Vol] 20 mg/dL High Negative [facility] Comment on above: Order Comment: Name Collection Type:: Clean-Voided Midstream Performed By: #### A MYLES AVENDAÑO, URDS #### [address] RBC Auto (Bld) [#/Vol]Ordere d By: Sarah Blandon on 07-14-2024 RBC (Bld) [#/Vol] Erythrocytes [#/volu me] in Blood by Automated count 3.60-5.00 [facility] Respiratory specimen influen za A virus, influenza B virus, respiratory syncytical virOrdered By: Sarah Blandon on 07-14-2024 SARS-CoV-2 (COVID-19) RNA HIRAM+probe Ql (Unsp spec) Respiratory specimen influenza A virus, influenza B virus, respiratory syncytical vir [facility] Serum globulin measurement b y calculation (mass/volume)Ordered By: Sarah Blandon on 07-14-2024 Globulin (S) [Mass/Vol] 3.1 g/dL Normal [facility] Comment on above: Performed By: #### A MYLES AVENDAÑO, URDS #### [facility] [address] [place] [address] Serum or plasma albumin/glob ulin mass ratioOrdered By: Sarah Blandon on 07-14-2024 Albumin/Globulin [Mass ratio] 1.3 {ratio} [facility] Comment on above: Performed By: #### A MYLES AVENDAÑO, URDS #### [address] Albumin/Globulin [Mass ratio] Serum or plasma albumin/globulin mass ratio [facility] Serum or plasma anion gap de terminationOrdered By: Sarah Blandon on 07-14-2024 Anion gap [Moles/Vol] 11.1 mmol/L Normal 6.0-15.0 [facility] Comment on above: Performed By: #### A MYLES AVENDAÑO, URDS #### [address] Anion gap [Moles/Vol] Serum or plasma an ion gap determination 6.0-15.0 [facility] Serum or plasma non-glucuron idated bilirubin measurement (mass/volume)Ordered By: Sarah Blandon on 07-14-2024 Bilirubin.indirect [Mass/Vol] 0.3 mg/dL [facility] Bilirubin.indirect [Mass/Vol] Serum or plasma non-glucuronidated bilirubin measurement (mass/volume) [facility] Sodium [Moles/volume] in Ser um or PlasmaOrdered By: Sarah Blandon on 07-14-2024 Sodium [Moles/Vol] 138 mmol/L Normal 136-145 [facility] Comment on above: Performed By: #### A MYLES AVENDAÑO, URDS #### [facility] [address] Sodium [Moles/Vol] Sodium [Moles/volume ] in Serum or Plasma 136-145 [facility] Specific gravity Test strip (U) [Rel density]Ordered By: Sarah Blandon on 07-14-2024 Specific gravity (U) [Rel density] 1.030 1.001-1.03 0 [facility] Specific gravity (U) [Rel density] Specific gravity of Urine by Test strip 1.001-1.03 0 [facility] Urea nitrogen [Mass/volume] in Serum or PlasmaOrdered By: Sarah Blandon on 07-14-2024 Urea nitrogen [Mass/Vol] 9 mg/dL Normal 04-10 [facility] Comment on above: Performed By: #### A MYLES AVENDAÑO, URDS #### [facility] [address] [place] [address] Urea nitrogen [Mass/Vol] Urea nitrogen [Mass/volume] in Serum or Plasma 04-10 [facility] Urine appearanceOrdered By: Sarah Blandon on 07-14-2024 Appearance (U) Clear Normal Clear [facility] Comment on above: Order Comment: Name Collection Type:: Clean-Voided Midstream Performed By: #### A MYLES AVENDAÑO, URDS #### [facility] [address] [place] [address] Urobilinogen Test strip (U) [Mass/Vol]Ordered By: Sarah Blandon on 07-14-2024 Urobilinogen (U) [Mass/Vol] 3 mg/dL [facility] Normal [facility] Urobilinogen (U) [Mass/Vol] Urobilinogen [Mass/volume] in Urine by Test strip [facility] WBC Auto (Bld) [#/Vol]Ordere d By: Sarah Blandon on 07-14-2024 WBC (Bld) [#/Vol] Leukocytes [#/volume ] in Blood by Automated count 3.8-11.6 [facility] pH Test strip (U)Ordered By: Sarah Blandon on 07-14-2024 pH (U) pH of Urine by Test strip 5.0-9.0 [facility] pH of Urine by Test stripOrd ered By: Sarah Blandon on 07-14-2024 pH (U) 6.0 [pH] Normal 5.0-9.0 [facility] Comment on above: Order Comment: Name Collection Type:: Clean-Voided Midstream Performed By: #### A DDONUAPLUS, UHCG, URDS #### [facility] [address] [place] [id number] [facility] CHLAMYDIA/GC BY PCRon 2023 CHLAMYDIA/GC BY [...] are dependent on adequate specimen collection. Normal [facility] Comment on above: Performed By: #### C #### [facility] ([id number]) [address] [place] [address], [address] [place] [address] VAGINITIS PANEL PCRon 2023 VAGINITIS PANEL PCR [...] clinical presentation to determine patient diagnosis. Normal [facility] Comment on above: Performed By: #### V PPCR #### [facility] ([id number]) [address], [address] [place] [address] Alanine aminotransferase [En zymatic activity/volume] in Serum or PlasmaOrdered By: Kelly Hough on 09-27-2023 ALT [Catalytic activity/Vol] 9 U/L 7-52 [facility] Albumin [Mass/volume] in Ser um or Plasma by Bromocresol green (BCG) dye binding methoOrdered By: Kelly Hough on 09-27-2023 Albumin BCG dye [Mass/Vol] 4.3 g/dL 3.5-5.7 [facility] Alkaline phosphatase [Enzyma tic activity/volume] in Serum or PlasmaOrdered By: Kelly Hough on 09-27-2023 ALP [Catalytic activity/Vol] 41 U/L 34-104 [facility] Aspartate aminotransferase [ Enzymatic activity/volume] in Serum or PlasmaOrdered By: Kelly Hough on 09-27-2023 AST [Catalytic activity/Vol] 10 U/L 13-39 [facility] Basophils Auto (Bld) [#/Vol] Ordered By: Kelly Hough on 09-27-2023 Basophils (Bld) [#/Vol] 0.0 10*3/uL 0.0-0.2 [facility] Basophils/100 WBC Auto (Bld) Ordered By: Kelly Hough on 09-27-2023 Basophils/100 WBC (Bld) 0.3 % . [facility] Bilirubin.total [Mass/volume ] in Serum or PlasmaOrdered By: Kelly Hough on 09-27-2023 Bilirubin [Mass/Vol] 0.7 mg/dL 0.3-1.0 [facility] Calcium [Mass/volume] in Ser um or PlasmaOrdered By: Kelly Hough on 09-27-2023 Calcium [Mass/Vol] 9.0 mg/dL 8.6-10.3 [facility] Carbon dioxide, total [Moles /volume] in Serum or PlasmaOrdered By: Kelly Hough on 09-27-2023 CO2 [Moles/Vol] 29.3 mmol/L 21.0-31.0 [facility] Chloride [Moles/volume] in S salas or PlasmaOrdered By: Kelly Hough on 09-27-2023 Chloride [Moles/Vol] 107 mmol/L 98-107 [facility] Creatinine [Mass/volume] in Serum or PlasmaOrdered By: Kelly Hough on 09-27-2023 Creatinine [Mass/Vol] 0.72 mg/dL 0.60-1.20 [facility] Eosinophils Auto (Bld) [#/Vo l]Ordered By: Kelly Hough on 09-27-2023 Eosinophils (Bld) [#/Vol] 0.1 10*3/uL 0.0-0.45 [facility] Eosinophils/100 WBC Auto (Bl d)Ordered By: Kelly Hough on 09-27-2023 Eosinophils/100 WBC (Bld) 0.8 % . [facility] Erythrocyte distribution wid th Auto (RBC) [Ratio]Ordered By: Kelly Hough on 09-27-2023 Erythrocyte distribution width (RBC) [Ratio] 13.7 % 11.9-15.3 [facility] Ferritin [Mass/volume] in Se rum or PlasmaOrdered By: Kelly Hough on 09-27-2023 Ferritin [Mass/Vol] 171.3 ng/mL 11.0-306.8 [facility] Folate [Mass/volume] in Seru m or PlasmaOrdered By: Kelly Hough on 09-27-2023 Folate [Mass/Vol] 5.5 ng/mL >5.9 [facility] Comment on above: Folate reference ran ge: >5.9 ng/mlThe WHO technical consultation on folate and vitamin [id number] has determined that folate concentrations lessthan 4 ng/ml are considered deficient. Globulin Calc (S) [Mass/Vol] Ordered By: Kelly Hough on 09-27-2023 Globulin (S) [Mass/Vol] 2.5 g/dL [facility] Glucose [Mass/volume] in Ser um or PlasmaOrdered By: Kelly Hough on 09-27-2023 Glucose [Mass/Vol] 113 mg/dL 70-100 [facility] Comment on above: ADA recommended [...] p24 Ag IA Ql Non-Reactive Non Reactive [facility] Comment on above: HIV NegativeHIV-1/HI V-2 antibodies and HIV-1 p24 antigen were NOTdetected. There is no laboratory evidence of HIV infection.Performed at: [facility] [id number] Director: Alan Macias PhD, Phone: [phone] Hematocrit Auto (Bld) [Volum e fraction]Ordered By: Kelly Hough on 09-27-2023 Hematocrit (Bld) [Volume fraction] 34.8 % 34.0-46.4 [facility] Hemoglobin [Mass/volume] in BloodOrdered By: Kelly Hough on 09-27-2023 Hemoglobin (Bld) [Mass/Vol] 11.0 g/dL 11.8-15.4 [facility] Iron [Mass/volume] in Serum or PlasmaOrdered By: Kelly Hough on 09-27-2023 Iron [Mass/Vol] 59 ug/dL 50-212 [facility] Iron binding capacity [Mass/ volume] in Serum or PlasmaOrdered By: Kelly Hough on 09-27-2023 Iron binding capacity [Mass/Vol] 231 ug/dL 255-450 [facility] Iron saturation [Mass Fracti on] in Serum or PlasmaOrdered By: Kelly Hough on 09-27-2023 Iron saturation [Mass fraction] 25.5 % 20-50 [facility] Leukocytes [#/volume] correc delmer for nucleated erythrocytes in Blood by Automated counOrdered By: Kelly Hough on 09-27-2023 WBC corrected for nucl RBC Auto (Bld) [#/Vol] 8.3 10*3/uL 3.8-11.6 [facility] Lymphocytes Auto (Bld) [#/Vo l]Ordered By: Kelly Hough on 09-27-2023 Lymphocytes (Bld) [#/Vol] 2.1 10*3/uL 1.00-4.8 [facility] Lymphocytes/100 WBC Auto (Bl d)Ordered By: Kelly Hough on 09-27-2023 Lymphocytes/100 WBC (Bld) 24.7 % . [facility] MCH Auto (RBC) [Entitic mass ]Ordered By: Kelly Hough on 09-27-2023 MCH (RBC) [Entitic mass] 23.5 pg 24.7-34.3 [facility] MCHC Auto (RBC) [Mass/Vol]Or dered By: Kelly Hough on 09-27-2023 MCHC (RBC) [Mass/Vol] 31.6 g/dL 32.0-35.0 [facility] MCV Auto (RBC) [Entitic vol] Ordered By: Kelly Hough on 09-27-2023 MCV (RBC) [Entitic vol] 74.4 fL 80-100 [facility] Monocytes Auto (Bld) [#/Vol] Ordered By: Kelly Hough on 09-27-2023 Monocytes (Bld) [#/Vol] 0.4 10*3/uL 0.0-0.8 [facility] Monocytes/100 WBC Auto (Bld) Ordered By: Kelly Hough on 09-27-2023 Monocytes/100 WBC (Bld) 5.3 % . [facility] Neutrophils Auto (Bld) [#/Vo l]Ordered By: Kelly Hough on 09-27-2023 Neutrophils (Bld) [#/Vol] 5.8 10*3/uL 1.8-7.7 [facility] Neutrophils/100 WBC Auto (Bl d)Ordered By: Kelly Hough on 09-27-2023 Neutrophils/100 WBC (Bld) 68.9 % . [facility] No Panel InformationOrdered By: Kelly Hough on 09-27-2023 Estimated GFR (CKD-EPI) > 60.0 mL/Min [facility] Creatinine Clearance (Chem 105.57 [facility] Nucleated erythrocytes [Pres ence] in Blood by Automated countOrdered By: Kelly Hough on 09-27-2023 Nucleated RBC Auto Ql (Bld) 0.1 /100{WBC} 0-0.5 [facility] Platelet mean volume Auto (B ld) [Entitic vol]Ordered By: Kelly Hough on 09-27-2023 Platelet mean volume (Bld) [Entitic vol] 9.3 fL 6.3-10.7 [facility] Platelets Auto (Bld) [#/Vol] Ordered By: Kelly Hough on 09-27-2023 Platelets (Bld) [#/Vol] 197 10*3/uL 150-450 [facility] Potassium [Moles/volume] in Serum or PlasmaOrdered By: Kelly Hough on 09-27-2023 Potassium [Moles/Vol] 3.4 mmol/L 3.5-5.1 [facility] Protein [Mass/volume] in Ser um or PlasmaOrdered By: Kelly Hough on 09-27-2023 Protein [Mass/Vol] 6.8 g/dL 6.4-8.9 [facility] RBC Auto (Bld) [#/Vol]Ordere d By: Kelly Hough on 09-27-2023 RBC (Bld) [#/Vol] 4.68 10*6/uL 3.60-5.00 [facility] [Presence] in Seru m by RPROrdered By: Yudelka Lopez on 09-27-2023 Reagin Ab RPR Ql (S) Non-Reactive Non Reactive [facility] Comment on above: Performed at: [place] [id number] Director: Alan Macias PhD, Phone: [phone] Serum or plasma albumin/glob ulin mass ratioOrdered By: Kelly Hough on 09-27-2023 Albumin/Globulin [Mass ratio] 1.7 {ratio} [facility] Serum or plasma anion gap de terminationOrdered By: Kelly Hough on 09-27-2023 Anion gap [Moles/Vol] 7.1 mmol/L 6.0-15.0 [facility] Sodium [Moles/volume] in Ser um or PlasmaOrdered By: Kelly Hough on 09-27-2023 Sodium [Moles/Vol] 140 mmol/L 136-145 [facility] Transferrin [Mass/volume] in Serum or PlasmaOrdered By: Kelly Ryannemesio on 09-27-2023 Transferrin [Mass/Vol] 165 mg/dL 203-362 [facility] Urea nitrogen [Mass/volume] in Serum or PlasmaOrdered By: Kelly Ryannemesio on 09-27-2023 Urea nitrogen [Mass/Vol] 10 mg/dL 7-25 [facility] Vitamin B12 ser/plasOrdered By: Kelly Ryannemesio on 09-27-2023 Cobalamin (Vitamin B12) [Mass/Vol] 446 pg/mL 180-914 [facility] Cobalamin (Vitamin B12) [Mass/Vol] Vitamin B12 ser/plas 180-914 [facility] WBC Auto (Bld) [#/Vol]Ordere d By: Kelly Ryannemesio on 09-27-2023 WBC (Bld) [#/Vol] 8.3 10*3/uL 3.8-11.6 [facility] Absolute reticulocyte countO rdered By: Kelly Ryannemesio on 06-27-2023 Reticulocytes (Bld) [#/Vol] 0.066 10*6/uL 0.024-0.08 4 [facility] Reticulocytes (Bld) [#/Vol] Absolute reticulocyte count 0.024-0.08 4 [facility] Basophil percentageOrdered B y: Kelly Hough on 06-27-2023 Basophil percentage Basophil percentage 80-158 [facility] Comment on above: This test was develo ped and its performance characteristicsdetermined by [facility] [employer]. It has not been cleared orapproved by the Food and Drug Administration. Detection Limit = 5Performed at: [facility] [id number] [place], [place] [id number] Director: Artemio Guillen MD, Phone: [phone] Haptoglobin [Mass/volume] in Serum or PlasmaOrdered By: Kelly Ryannemesio on 06-27-2023 Haptoglobin [Mass/Vol] 184 mg/dL 44-215 [facility] Haptoglobin [Mass/Vol] Haptoglobin [Mass /volume] in Serum or Plasma 44-215 [facility] Lactate dehydrogenase [Enzym atic activity/volume] in Serum or Plasma by Lactate to pyOrdered By: Kelly Hough on 06-27-2023 LDH Lactate to pyruvate reaction [Catalytic activity/Vol] 137 U/L Low 140-271 [facility] LDH Lactate to pyruvate reaction [Catalytic activity/Vol] Lactate dehydrogenase [Enzymatic activity/volume] in Serum or Plasma by Lactate to py Low 140-271 [facility] Monocyte %Ordered By: Kelly amaya on 06-27-2023 Monocyte % 145 ug/dL 80-158 [facility] Comment on above: This test was develo ped and its performance characteristicsdetermined by [employer]. It has not been cleared orapproved by the Food and Drug Administration. Detection Limit = 5Performed at: [facility] [place] [id number] [place], [place] [id number] Director: Artemio Guillen MD, Phone: [phone] Reticulocytes/100 RBC Auto ( Bld)Ordered By: Kelly Hough on 06-27-2023 Reticulocytes/100 RBC (Bld) 1.4 % 0.5-1.5 [facility] Reticulocytes/100 RBC (Bld) Reticulocyte % auto 0.5-1.5 [facility] Alanine aminotransferase [En zymatic activity/volume] in Serum or PlasmaOrdered By: Kelly Hough on 06-14-2023 ALT [Catalytic activity/Vol] 13 U/L 7-52 [facility] Albumin [Mass/volume] in Ser um or Plasma by Bromocresol green (BCG) dye binding methoOrdered By: Kelly Hough on 06-14-2023 Albumin BCG dye [Mass/Vol] 3.8 g/dL 3.5-5.7 [facility] Alkaline phosphatase [Enzyma tic activity/volume] in Serum or PlasmaOrdered By: Kelly Hough on 06-14-2023 ALP [Catalytic activity/Vol] 33 U/L 34-104 [facility] Aspartate aminotransferase [ Enzymatic activity/volume] in Serum or PlasmaOrdered By: Kelly Hough on 06-14-2023 AST [Catalytic activity/Vol] 10 U/L 13-39 [facility] Basophils Auto (Bld) [#/Vol] Ordered By: Kelly Hough on 06-14-2023 Basophils (Bld) [#/Vol] 0.0 10*3/uL 0.0-0.2 [facility] Basophils/100 WBC Auto (Bld) Ordered By: Kelly Hough on 06-14-2023 Basophils/100 WBC (Bld) 0.4 % . [facility] Bilirubin.total [Mass/volume ] in Serum or PlasmaOrdered By: Kelly Hough on 06-14-2023 Bilirubin [Mass/Vol] 0.4 mg/dL 0.3-1.0 [facility] Calcium [Mass/volume] in Ser um or PlasmaOrdered By: Kelly Hough on 06-14-2023 Calcium [Mass/Vol] 8.8 mg/dL 8.6-10.3 [facility] Carbon dioxide, total [Moles /volume] in Serum or PlasmaOrdered By: Kelly Hough on 06-14-2023 CO2 [Moles/Vol] 28.5 mmol/L 21.0-31.0 [facility] Chloride [Moles/volume] in S salas or PlasmaOrdered By: Kelly Hough on 06-14-2023 Chloride [Moles/Vol] 104 mmol/L 98-107 [facility] Creatinine [Mass/volume] in Serum or PlasmaOrdered By: Kelly Hough on 06-14-2023 Creatinine [Mass/Vol] 0.82 mg/dL 0.60-1.20 [facility] Eosinophils Auto (Bld) [#/Vo l]Ordered By: Kelly Hough on 06-14-2023 Eosinophils (Bld) [#/Vol] 0.2 10*3/uL 0.0-0.45 [facility] Eosinophils/100 WBC Auto (Bl d)Ordered By: Kelly Hough on 06-14-2023 Eosinophils/100 WBC (Bld) 1.9 % . [facility] Erythrocyte distribution wid th Auto (RBC) [Ratio]Ordered By: Kelly oHugh on 06-14-2023 Erythrocyte distribution width (RBC) [Ratio] 13.9 % 11.9-15.3 [facility] Ferritin [Mass/volume] in Se rum or PlasmaOrdered By: Kelly Hough on 06-14-2023 Ferritin [Mass/Vol] 146.0 ng/mL 11.0-306.8 [facility] Globulin Calc (S) [Mass/Vol] Ordered By: Kelly Hough on 06-14-2023 Globulin (S) [Mass/Vol] 2.0 g/dL [facility] Glucose [Mass/volume] in Ser um or PlasmaOrdered By: Kelly Hough on 06-14-2023 Glucose [Mass/Vol] 86 mg/dL 70-100 [facility] Comment on above: ADA recommended refe rence rangeRandom Glucose Reference Range is dependent on time and content of last meal. Glucose of more than 200 mg/dL in a nonstressed, ambulatory subject supports the diagnosis of Diabetes Mellitus. Hematocrit Auto (Bld) [Volum e fraction]Ordered By: Kelly Hough on 06-14-2023 Hematocrit (Bld) [Volume fraction] 32.4 % 34.0-46.4 [facility] Hemoglobin [Mass/volume] in BloodOrdered By: Kelly Hoguh on 06-14-2023 Hemoglobin (Bld) [Mass/Vol] 10.3 g/dL 11.8-15.4 [facility] Iron [Mass/volume] in Serum or PlasmaOrdered By: Kelly Hough on 06-14-2023 Iron [Mass/Vol] 62 ug/dL 50-212 [facility] Iron binding capacity [Mass/ volume] in Serum or PlasmaOrdered By: Kelly Hough on 06-14-2023 Iron binding capacity [Mass/Vol] 190 ug/dL 255-450 [facility] Iron saturation [Mass Fracti on] in Serum or PlasmaOrdered By: Kelly Hough on 06-14-2023 Iron saturation [Mass fraction] 32.6 % 20-50 [facility] Leukocytes [#/volume] correc delmer for nucleated erythrocytes in Blood by Automated counOrdered By: Kelly Hough on 06-14-2023 WBC corrected for nucl RBC Auto (Bld) [#/Vol] 8.4 10*3/uL 3.8-11.6 [facility] Lymphocytes Auto (Bld) [#/Vo l]Ordered By: Kelly Hough on 06-14-2023 Lymphocytes (Bld) [#/Vol] 2.6 10*3/uL 1.00-4.8 [facility] Lymphocytes/100 WBC Auto (Bl d)Ordered By: Kelly Hough on 06-14-2023 Lymphocytes/100 WBC (Bld) 31.3 % . [facility] MCH Auto (RBC) [Entitic mass ]Ordered By: Kelly Hough on 06-14-2023 MCH (RBC) [Entitic mass] 23.8 pg 24.7-34.3 [facility] MCHC Auto (RBC) [Mass/Vol]Or dered By: Kelly Hough on 06-14-2023 MCHC (RBC) [Mass/Vol] 31.7 g/dL 32.0-35.0 [facility] MCV Auto (RBC) [Entitic vol] Ordered By: Kelly Hough on 06-14-2023 MCV (RBC) [Entitic vol] 75.2 fL 80-100 [facility] Monocytes Auto (Bld) [#/Vol] Ordered By: Kelly Hough on 06-14-2023 Monocytes (Bld) [#/Vol] 0.5 10*3/uL 0.0-0.8 [facility] Monocytes/100 WBC Auto (Bld) Ordered By: Kelly Hough on 06-14-2023 Monocytes/100 WBC (Bld) 5.9 % . [facility] Neutrophils Auto (Bld) [#/Vo l]Ordered By: Kelly Hough on 06-14-2023 Neutrophils (Bld) [#/Vol] 5.1 10*3/uL 1.8-7.7 [facility] Neutrophils/100 WBC Auto (Bl d)Ordered By: Kelly Hough on 06-14-2023 Neutrophils/100 WBC (Bld) 60.5 % . [facility] No Panel InformationOrdered By: Kelly Hough on 06-14-2023 Estimated GFR (CKD-EPI) > 60.0 mL/Min [facility] Creatinine Clearance (Chem 93.10 [facility] Nucleated erythrocytes [Pres ence] in Blood by Automated countOrdered By: Kelly Hough on 06-14-2023 Nucleated RBC Auto Ql (Bld) 0.1 /100{WBC} 0-0.5 [facility] Platelet mean volume Auto (B ld) [Entitic vol]Ordered By: Kelly Hough on 06-14-2023 Platelet mean volume (Bld) [Entitic vol] 9.6 fL 6.3-10.7 [facility] Platelets Auto (Bld) [#/Vol] Ordered By: Kelly Hough on 06-14-2023 Platelets (Bld) [#/Vol] 189 10*3/uL 150-450 [facility] Potassium [Moles/volume] in Serum or PlasmaOrdered By: Kelly Hough on 06-14-2023 Potassium [Moles/Vol] 4.1 mmol/L 3.5-5.1 [facility] Protein [Mass/volume] in Ser um or PlasmaOrdered By: Kelly Hough on 06-14-2023 Protein [Mass/Vol] 5.8 g/dL 6.4-8.9 [facility] RBC Auto (Bld) [#/Vol]Ordere d By: Kelly Hough on 06-14-2023 RBC (Bld) [#/Vol] 4.31 10*6/uL 3.60-5.00 [facility] Serum or plasma albumin/glob ulin mass ratioOrdered By: Kelly Hough on 06-14-2023 Albumin/Globulin [Mass ratio] 1.9 {ratio} [facility] Serum or plasma anion gap de terminationOrdered By: Kelly Hough on 06-14-2023 Anion gap [Moles/Vol] 10.6 mmol/L 6.0-15.0 [facility] Sodium [Moles/volume] in Ser um or PlasmaOrdered By: Kelly Hough on 06-14-2023 Sodium [Moles/Vol] 139 mmol/L 136-145 [facility] Thyrotropin [Units/volume] i n Serum or PlasmaOrdered By: Dayne Horton on 06-14-2023 TSH Qn 1.43 m[IU]/L 0.45-5.33 [facility] Thyroxine (T4) free [Mass/vo lume] in Serum or PlasmaOrdered By: Dayne Horton on 06-14-2023 Free T4 [Mass/Vol] 1.22 ng/dL 0.61-1.12 [facility] Transferrin [Mass/volume] in Serum or PlasmaOrdered By: Kelly Hough on 06-14-2023 Transferrin [Mass/Vol] 136 mg/dL 203-362 [facility] Triiodothyronine (T3) Free [ Mass/volume] in Serum or PlasmaOrdered By: Dayne Horton on 06-14-2023 Free T3 [Mass/Vol] 3.99 pg/mL 2.50-3.90 [facility] Urea nitrogen [Mass/volume] in Serum or PlasmaOrdered By: Kelly Hough on 06-14-2023 Urea nitrogen [Mass/Vol] 11 mg/dL 7 [facility] WBC Auto (Bld) [#/Vol]Ordere d By: Kelly Hough on 06-14-2023 WBC (Bld) [#/Vol] 8.4 10*3/uL 3.8-11.6 [facility] Albumin [Mass/volume] in Ser um or PlasmaOrdered By: Kelly Hough on 03-21-2023 Albumin [Mass/Vol] 3.6 g/dL 2.9-4.4 [facility] Albumin [Mass/Vol] Albumin [Mass/volume ] in Serum or Plasma 2.9-4.4 [facility] IgA [Mass/volume] in Serum o r PlasmaOrdered By: Kelly Hough on 03-21-2023 IgA [Mass/Vol] 158 mg/dL 87-352 [facility] IgA [Mass/Vol] IgA [Mass/volume] in Serum or Plasma 87-352 [facility] IgG [Mass/volume] in Serum o r PlasmaOrdered By: Kelly Hough on 03-21-2023 IgG [Mass/Vol] 1046 mg/dL 586-1602 [facility] IgG [Mass/Vol] IgG [Mass/volume] in Serum or Plasma 586-1602 [facility] IgM [Mass/volume] in Serum o r PlasmaOrdered By: Kelly Hough on 03-21-2023 IgM [Mass/Vol] 302 mg/dL [address] Comment on above: Performed at: [facility] [address] [id number] Director: Alan Macias PhD, Phone: [phone] IgM [Mass/Vol] IgM [Mass/volume] in Serum or Plasma [address] Comment on above: Performed at: [employer] [place] [id number] Director: Alan Macias PhD, Phone: [phone] Immunoglobulin light chains. kappa.free [Mass/volume] in SerumOrdered By: Kelly Hough on 03-21-2023 Immunoglobulin light chains.kappa.free (S) [Mass/Vol] 19.2 mg/L 3.3-19.4 [facility] Immunoglobulin light chains.kappa.free (S) [Mass/Vol] Immunoglobulin light chains.kappa.free [Mass/volume] in Serum 3.3-19.4 [facility] Immunoglobulin light chains. kappa.free/Immunoglobulin light chains.lambda.free [MassOrdered By: Kelly Hough on 03-21-2023 Immunoglobulin light chains.kappa.free/Immu noglobulin light chains.lambda.free (S) [Mass ratio] 1.31 0.26-1.65 [facility] Comment on above: Performed at: [employer] [place] [id number] Director: Alan Macias PhD, Phone: [phone] Immunoglobulin light chains.kappa.free/Immu noglobulin light chains.lambda.free (S) [Mass ratio] Immunoglobulin light chains.kappa.free/Immunoglo bulin light chains.lambda.free [Mass 0.26-1.65 [facility] Comment on above: Performed at: [facility] [id number] [place] [id number] Director: Alan Macias PhD, Phone: [phone] Immunoglobulin light chains. lambda.free [Mass/volume] in Serum or PlasmaOrdered By: Kelly Hough on 03-21-2023 Immunoglobulin light chains.lambda.free [Mass/Vol] 14.7 mg/L 5.7-26.3 [facility] Immunoglobulin light chains.lambda.free [Mass/Vol] Immunoglobulin light chains.lambda.free [Mass/volume] in Serum or Plasma 5.7-26.3 [facility] No Panel InformationOrdered By: Kelly Hough on 03-21-2023 Protein Electrophoresis M-Emanuel Not observed g/dL Not Observed [facility] Protein Electrophoresis Note See comment . [facility] Comment on above: Protein electrophore sis scan will follow via computer,mail, or physical medicine specialist delivery. Serum Immunofixation See comment . [facility] Comment on above: No monoclonality det ected. Slides for Pathologist Review Ordered path review [facility] Protein [Mass/volume] in Ser um or PlasmaOrdered By: Kelly Hough on 03-21-2023 Protein [Mass/Vol] 6.5 g/dL 6.0-8.5 [facility] Protein [Mass/Vol] Protein [Mass/volume ] in Serum or Plasma 6.0-8.5 [facility] Serum globulin measurement ( mass/volume)Ordered By: Kelly Hough on 03-21-2023 Globulin (S) [Mass/Vol] 2.9 g/dL 2.2-3.9 [facility] Globulin (S) [Mass/Vol] Serum globulin measurement (mass/volume) 2.2-3.9 [facility] Serum or plasma albumin/glob ulin mass ratioOrdered By: Kelly Hough on 03-21-2023 Albumin/Globulin [Mass ratio] 1.2 {ratio} 0.7-1.7 [facility] Albumin/Globulin [Mass ratio] Serum or plasma albumin/globulin mass ratio 0.7-1.7 [facility] Serum or plasma alpha 1 glob ulin measurement by electrophoresis (mass/volume)Ordered By: Kelly Hough on 03-21-2023 Alpha 1 globulin [place] [Mass/Vol] 0.3 g/dL 0.0-0.4 [facility] Alpha 1 globulin [place] [Mass/Vol] Serum or plasma alpha 1 globulin measurement by electrophoresis (mass/volume) 0.0-0.4 [facility] Serum or plasma alpha 2 glob ulin measurement by electrophoresis (mass/volume)Ordered By: Kelly France on 03-21-2023 Alpha 2 globulin [place] [Mass/Vol] 0.8 g/dL 0.4-1.0 [facility] Alpha 2 globulin [place] [Mass/Vol] Serum or plasma alpha 2 globulin measurement by electrophoresis (mass/volume) 0.4-1.0 [facility] Serum or plasma beta globuli n measurement by electrophoresis (mass/volume)Ordered By: Kelly Hough on 03-21-2023 Beta globulin [place] [Mass/Vol] 0.7 g/dL 0.7-1.3 [facility] Beta globulin [place]ph [Mass/Vol] Serum or plasma beta globulin measurement by electrophoresis (mass/volume) 0.7-1.3 [facility] Serum or plasma gamma globul in measurement by electrophoresis (mass/volume)Ordered By: Kelly Hough on 03-21-2023 Gamma globulin [place] [Mass/Vol] 1.1 g/dL 0.4-1.8 [facility] Gamma globulin [place] [Mass/Vol] Serum or plasma gamma globulin measurement by electrophoresis (mass/volume) 0.4-1.8 [facility] Alanine aminotransferase [En zymatic activity/volume] in Serum or PlasmaOrdered By: Jim Vega on 02-06-2023 ALT [Catalytic activity/Vol] 10 U/L 7-52 [facility] Albumin [Mass/volume] in Ser um or Plasma by Bromocresol green (BCG) dye binding methoOrdered By: Jim Vega on 02-06-2023 Albumin BCG dye [Mass/Vol] 4.2 g/dL 3.5-5.7 [facility] Alkaline phosphatase [Enzyma tic activity/volume] in Serum or PlasmaOrdered By: Jim Vega on 02-06-2023 ALP [Catalytic activity/Vol] 45 U/L 34-104 [facility] Aspartate aminotransferase [ Enzymatic activity/volume] in Serum or PlasmaOrdered By: Jim Vega on 02-06-2023 AST [Catalytic activity/Vol] 12 U/L 13-39 [facility] Automated erythrocytes count in urine sediment (number/area)Ordered By: Jim Vega on 02-06-2023 RBC Auto (Urine sed) [#/Area] 5-9 [HPF] 0-4 [facility] Automated leukocytes count i n urine sediment (number/area)Ordered By: Jim Vega on 02-06-2023 WBC Auto (Urine sed) [#/Area] 3-4 [HPF] 0-4 [facility] Basophils Auto (Bld) [#/Vol] Ordered By: Jim Vega on 02-06-2023 Basophils (Bld) [#/Vol] 0.0 10*3/uL 0.0-0.2 [facility] Basophils/100 WBC Auto (Bld) Ordered By: Jim Vega on 02-06-2023 Basophils/100 WBC (Bld) 0.7 % . [facility] Bilirubin Test strip Ql (U)O rdered By: Jim Vega on 02-06-2023 Bilirubin Ql (U) Negative Negative [facility] Bilirubin.total [Mass/volume ] in Serum or PlasmaOrdered By: Jim Vega on 02-06-2023 Bilirubin [Mass/Vol] 0.5 mg/dL 0.3-1.0 [facility] Calcium [Mass/volume] in Ser um or PlasmaOrdered By: Jim Vega on 02-06-2023 Calcium [Mass/Vol] 8.5 mg/dL 8.6-10.3 [facility] Carbon dioxide, total [Moles /volume] in Serum or PlasmaOrdered By: Jim Vega on 02-06-2023 CO2 [Moles/Vol] 26.0 mmol/L 21.0-31.0 [facility] Chloride [Moles/volume] in S salas or PlasmaOrdered By: Jim Vega on 02-06-2023 Chloride [Moles/Vol] 105 mmol/L 98-107 [facility] Color Auto (U)Ordered By: Narinder red Silvia on 02-06-2023 Color (U) Yellow Yellow [facility] Creatinine [Mass/volume] in Serum or PlasmaOrdered By: Jim Vega on 02-06-2023 Creatinine [Mass/Vol] 0.78 mg/dL 0.60-1.20 [facility] Eosinophils Auto (Bld) [#/Vo l]Ordered By: Jim Vega on 02-06-2023 Eosinophils (Bld) [#/Vol] 0.1 10*3/uL 0.0-0.45 [facility] Eosinophils/100 WBC Auto (Bl d)Ordered By: Jim Vega on 02-06-2023 Eosinophils/100 WBC (Bld) 2.2 % . [facility] Erythrocyte distribution wid th Auto (RBC) [Ratio]Ordered By: Jim Vega on 02-06-2023 Erythrocyte distribution width (RBC) [Ratio] 14.3 % 11.9-15.3 [facility] Globulin Calc (S) [Mass/Vol] Ordered By: Jim Vega on 02-06-2023 Globulin (S) [Mass/Vol] 3.0 g/dL [facility] Glucose [Mass/volume] in Ser um or PlasmaOrdered By: Jim Vega on 02-06-2023 Glucose [Mass/Vol] 92 mg/dL 70-100 [facility] Comment on above: ADA recommended refe rence rangeRandom Glucose Reference Range is dependent on time and content of last meal. Glucose of more than 200 mg/dL in a nonstressed, ambulatory subject supports the diagnosis of Diabetes Mellitus. HCG ( test) IA.rapi d Ql (U)Ordered By: Jim Vega on 02-06-2023 HCG ( test) Ql (U) Negative [facility] Hematocrit Auto (Bld) [Volum e fraction]Ordered By: Jim Vega on 02-06-2023 Hematocrit (Bld) [Volume fraction] 35.2 % 34.0-46.4 [facility] Hemoglobin [Mass/volume] in BloodOrdered By: Jim Vega on 02-06-2023 Hemoglobin (Bld) [Mass/Vol] 11.0 g/dL 11.8-15.4 [facility] Ketones Auto test strip (U) [Mass/Vol]Ordered By: Jim Vega on 02-06-2023 Ketones (U) [Mass/Vol] Negative Negative [facility] - UrinalysisOrder ed By: Jim Vega on 02-06-2023 Hyaline casts LM Ql (Urine sed) 0-8 [LPF] 0-8 [facility] Leukocytes [#/volume] correc delmer for nucleated erythrocytes in Blood by Automated counOrdered By: Jim Vega on 02-06-2023 WBC corrected for nucl RBC Auto (Bld) [#/Vol] 5.3 10*3/uL 3.8-11.6 [facility] Lymphocytes Auto (Bld) [#/Vo l]Ordered By: Jim Vega on 02-06-2023 Lymphocytes (Bld) [#/Vol] 1.4 10*3/uL 1.00-4.8 [facility] Lymphocytes/100 WBC Auto (Bl d)Ordered By: Jim Vega on 02-06-2023 Lymphocytes/100 WBC (Bld) 25.8 % . [facility] MCH Auto (RBC) [Entitic mass ]Ordered By: Jim Vega on 02-06-2023 MCH (RBC) [Entitic mass] 22.8 pg 24.7-34.3 [facility] MCHC Auto (RBC) [Mass/Vol]Or dered By: Jim Vega on 02-06-2023 MCHC (RBC) [Mass/Vol] 31.1 g/dL 32.0-35.0 [facility] MCV Auto (RBC) [Entitic vol] Ordered By: Jim Vega on 02-06-2023 MCV (RBC) [Entitic vol] 73.2 fL 80-100 [facility] Monocyte distribution width [Entitic volume] in Blood by AutomatedOrdered By: Jim Vega on 02-06-2023 Monocyte distribution width Auto (Bld) [Entitic vol] 18.18 % 0.00-20.00 [facility] Monocytes Auto (Bld) [#/Vol] Ordered By: Jim Vega on 02-06-2023 Monocytes (Bld) [#/Vol] 0.4 10*3/uL 0.0-0.8 [facility] Monocytes/100 WBC Auto (Bld) Ordered By: Jim Vega on 02-06-2023 Monocytes/100 WBC (Bld) 7.1 % . [facility] Neutrophils Auto (Bld) [#/Vo l]Ordered By: Jim Vega on 02-06-2023 Neutrophils (Bld) [#/Vol] 3.4 10*3/uL 1.8-7.7 [facility] Neutrophils/100 WBC Auto (Bl d)Ordered By: Jim Vega on 02-06-2023 Neutrophils/100 WBC (Bld) 64.2 % . [facility] Nitrite Test strip Ql (U)Ord ered By: Jim Vega on 02-06-2023 Nitrite Ql (U) Negative Negative [facility] No Panel InformationOrdered By: Jim Vega on 02-06-2023 Estimated GFR (CKD-EPI) > 60.0 mL/Min [facility] Creatinine Clearance (Chem 100.96 [facility] Nucleated erythrocytes [Pres ence] in Blood by Automated countOrdered By: Jim Vega on 02-06-2023 Nucleated RBC Auto Ql (Bld) 0.1 /100{WBC} 0-0.5 [facility] Platelet mean volume Auto (B ld) [Entitic vol]Ordered By: Jim Vega on 02-06-2023 Platelet mean volume (Bld) [Entitic vol] 9.4 fL 6.3-10.7 [facility] Platelets Auto (Bld) [#/Vol] Ordered By: Jim Vega on 02-06-2023 Platelets (Bld) [#/Vol] 175 10*3/uL 150-450 [facility] Potassium [Moles/volume] in Serum or PlasmaOrdered By: Jim Vega on 02-06-2023 Potassium [Moles/Vol] 3.5 mmol/L 3.5-5.1 [facility] Protein Auto test strip (U) [Mass/Vol]Ordered By: Jim Vega on 02-06-2023 Protein (U) [Mass/Vol] Negative Negative [facility] Protein [Mass/volume] in Ser um or PlasmaOrdered By: Jim Vega on 02-06-2023 Protein [Mass/Vol] 7.2 g/dL 6.4-8.9 [facility] RBC Auto (Bld) [#/Vol]Ordere d By: Jim Vega on 02-06-2023 RBC (Bld) [#/Vol] 4.81 10*6/uL 3.60-5.00 [facility] Serum or plasma albumin/glob ulin mass ratioOrdered By: Jim Vega on 02-06-2023 Albumin/Globulin [Mass ratio] 1.4 {ratio} [facility] Serum or plasma anion gap de terminationOrdered By: Jim Vega on 02-06-2023 Anion gap [Moles/Vol] 9.5 mmol/L 6.0-15.0 [facility] Sodium [Moles/volume] in Ser um or PlasmaOrdered By: Jim Vega on 02-06-2023 Sodium [Moles/Vol] 137 mmol/L 136-145 [facility] Specific gravity Auto test s trip (U) [Rel density]Ordered By: Jim Vega on 02-06-2023 Specific gravity (U) [Rel density] 1.010 1.001-1.03 0 [facility] Squamous epithelial cells de tection in urine sediment by light microscopyOrdered By: Jim Vega on 02-06-2023 Epithelial cells.squamous LM Ql (Urine sed) 5-9 [HPF] 0-2 [facility] Urea nitrogen [Mass/volume] in Serum or PlasmaOrdered By: Jim Vega on 02-06-2023 Urea nitrogen [Mass/Vol] 11 mg/dL 7-25 [facility] Urine bacteria detection by automated methodOrdered By: Jim Vega on 02-06-2023 Bacteria Auto Ql (U) None seen None Seen [facility] Urine clarity by refractomet ry automatedOrdered By: Jim Vega on 02-06-2023 Clarity Refractometry automated (U) Clear Clear [facility] Urine glucose measurement by automated test strip (mass/volume)Ordered By: Jim Vega on 02-06-2023 Glucose Auto test strip (U) [Mass/Vol] Normal mg/dL Normal [facility] Urine hemoglobin detection b y automated test stripOrdered By: Jim Vega on 02-06-2023 Hemoglobin Auto test strip Ql (U) Trace Negative [facility] Urine leukocyte esterase det ection by automated test stripOrdered By: Jim Vega on 02-06-2023 Leukocyte esterase Auto test strip Ql (U) Negative Negative [facility] Urobilinogen Auto test strip (U) [Mass/Vol]Ordered By: Jim Vega on 02-06-2023 Urobilinogen (U) [Mass/Vol] Normal mg/dL Normal [facility] WBC Auto (Bld) [#/Vol]Ordere d By: Jim Vega on 02-06-2023 WBC (Bld) [#/Vol] 5.3 10*3/uL 3.8-11.6 [facility] pH Auto test strip (U)Ordere d By: Jim Vega on 02-06-2023 pH (U) 8.0 [pH] 5.0-9.0 [facility] Ferritin [Mass/volume] in Se rum or PlasmaOrdered By: Kelly Hough on 01-24-2023 Ferritin [Mass/Vol] 64.3 ng/mL 11.0-306.8 [facility] Iron [Mass/volume] in Serum or PlasmaOrdered By: Kelly Hough on 01-24-2023 Iron [Mass/Vol] 85 ug/dL 50-212 [facility] Iron binding capacity [Mass/ volume] in Serum or PlasmaOrdered By: Kelly Hough on 01-24-2023 Iron binding capacity [Mass/Vol] 227 ug/dL 255-450 [facility] Iron saturation [Mass Fracti on] in Serum or PlasmaOrdered By: Kelly Hough on 01-24-2023 Iron saturation [Mass fraction] 37.4 % 20-50 [facility] Transferrin [Mass/volume] in Serum or PlasmaOrdered By: Kelly Hough on 01-24-2023 Transferrin [Mass/Vol] 162 mg/dL 203-362 [facility] Basophils Auto (Bld) [#/Vol] Ordered By: Kelly Hough on 12-25-2022 Basophils (Bld) [#/Vol] 0.0 10*3/uL 0.0-0.2 [facility] Basophils/100 WBC Auto (Bld) Ordered By: Kelly Hough on 12-25-2022 Basophils/100 WBC (Bld) 0.3 % . [facility] C reactive protein [Mass/vol ume] in Serum or PlasmaOrdered By: Jose Shanks on 12-25-2022 CRP [Mass/Vol] < 0.5 mg/dL 0.0-0.5 [facility] Calprotectin [Mass/mass] in StoolOrdered By: Jose Shanks on 12-25-2022 Calprotectin (Stl) [Mass/Mass] 32 ug/g 0-120 [facility] Comment on above: Concentration Interp retation Follow-Up<16 - 50 ug/g Normal None>50 -120 ug/g Borderline Re-evaluate in 4-6 weeks >120 ug/g Abnormal Repeat as clinically indicatedPerformed at: - [facility] [id number] Director: Artemio Guillen MD, Phone: [phone] Eosinophils Auto (Bld) [#/Vo l]Ordered By: Kelly Hough on 12-25-2022 Eosinophils (Bld) [#/Vol] 0.1 10*3/uL 0.0-0.45 [facility] Eosinophils/100 WBC Auto (Bl d)Ordered By: Klely Hough on 12-25-2022 Eosinophils/100 WBC (Bld) 1.1 % . [facility] [facility] Erythrocyte distribution wid th Auto (RBC) [Ratio]Ordered By: Kelly Hough on 12-25-2022 Erythrocyte distribution width (RBC) [Ratio] 15.5 % 11.9-15.3 [facility] Erythrocyte sedimentation ra te by Photometric methodOrdered By: Jose Shanks on 12-25-2022 ESR Photometric method (Bld) [Velocity] 32 mm/hr 0-19 [facility] Ferritin [Mass/volume] in Se rum or PlasmaOrdered By: Kelly Hough on 12-25-2022 Ferritin [Mass/Vol] 58.3 ng/mL 11.0-306.8 [facility] Hematocrit Auto (Bld) [Volum e fraction]Ordered By: Kelly Hough on 12-25-2022 Hematocrit (Bld) [Volume fraction] 35.3 % 34.0-46.4 [facility] Hemoglobin [Mass/volume] in BloodOrdered By: Kelly Hough on 12-25-2022 Hemoglobin (Bld) [Mass/Vol] 11.0 g/dL 11.8-15.4 [facility] IgA [Mass/volume] in Serum o r PlasmaOrdered By: Jose Shanks on 12-25-2022 IgA [Mass/Vol] 164 mg/dL 87-352 [facility] Comment on above: Performed at: [place] [id number] Director: Alan Macias PhD, Phone: [phone] Iron [Mass/volume] in Serum or PlasmaOrdered By: Kelly Hough on 12-25-2022 Iron [Mass/Vol] 112 ug/dL 50-212 [facility] Iron binding capacity [Mass/ volume] in Serum or PlasmaOrdered By: Kelly Hough on 12-25-2022 Iron binding capacity [Mass/Vol] 241 ug/dL 255-450 [facility] Iron saturation [Mass Fracti on] in Serum or PlasmaOrdered By: Kelly Hough on 12-25-2022 Iron saturation [Mass fraction] 46.5 % 20-50 [facility] Leukocytes [#/volume] correc delmer for nucleated erythrocytes in Blood by Automated counOrdered By: Kelly Hough on 12-25-2022 WBC corrected for nucl RBC Auto (Bld) [#/Vol] 6.8 10*3/uL 3.8-11.6 [facility] Lymphocytes Auto (Bld) [#/Vo l]Ordered By: Kelly Hough on 12-25-2022 Lymphocytes (Bld) [#/Vol] 1.7 10*3/uL 1.00-4.8 [facility] Lymphocytes/100 WBC Auto (Bl d)Ordered By: Kelly Hough on 12-25-2022 Lymphocytes/100 WBC (Bld) 25.5 % . [facility] MCH Auto (RBC) [Entitic mass ]Ordered By: Kelly Hough on 12-25-2022 MCH (RBC) [Entitic mass] 22.3 pg 24.7-34.3 [facility] MCHC Auto (RBC) [Mass/Vol]Or dered By: Kelly Hough on 12-25-2022 MCHC (RBC) [Mass/Vol] 31.1 g/dL 32.0-35.0 [facility] MCV Auto (RBC) [Entitic vol] Ordered By: Kelly Hough on 12-25-2022 MCV (RBC) [Entitic vol] 71.8 fL 80-100 [facility] Monocytes Auto (Bld) [#/Vol] Ordered By: Kelly Hough on 12-25-2022 Monocytes (Bld) [#/Vol] 0.4 10*3/uL 0.0-0.8 [facility] Monocytes/100 WBC Auto (Bld) Ordered By: Kelly Houhg on 12-25-2022 Monocytes/100 WBC (Bld) 6.3 % . [facility] Neutrophils Auto (Bld) [#/Vo l]Ordered By: Kelly Hough on 12-25-2022 Neutrophils (Bld) [#/Vol] 4.5 10*3/uL 1.8-7.7 [facility] Neutrophils/100 WBC Auto (Bl d)Ordered By: Kelly Hough on 12-25-2022 Neutrophils/100 WBC (Bld) 66.8 % . [facility] No Panel InformationOrdered By: Jose Shanks on 12-25-2022 Endomysial IgA Antibody Negative Negative [facility] Nucleated erythrocytes [Pres ence] in Blood by Automated countOrdered By: Kelly Hough on 12-25-2022 Nucleated RBC Auto Ql (Bld) 0.2 /100{WBC} 0-0.5 [facility] Platelet mean volume Auto (B ld) [Entitic vol]Ordered By: Kelly Hough on 12-25-2022 Platelet mean volume (Bld) [Entitic vol] 9.5 fL 6.3-10.7 [facility] Platelets Auto (Bld) [#/Vol] Ordered By: Kelly Hough on 12-25-2022 Platelets (Bld) [#/Vol] 191 10*3/uL 150-450 [facility] RBC Auto (Bld) [#/Vol]Ordere d By: Kelly Hough on 12-25-2022 RBC (Bld) [#/Vol] 4.92 10*6/uL 3.60-5.00 [facility] Serum gliadin peptide IgA an tibody assay (units/volume)Ordered By: Jose Shanks on 12-25-2022 Gliadin peptide IgA Qn (S) 7 units 0-19 [facility] Comment on above: Negative 0 - 19 Weak Positive 20 - 30 Moderate to Strong Positive >30 Serum gliadin peptide IgG an tibody assay (units/volume)Ordered By: Jose Shanks on 12-25-2022 Gliadin peptide IgG Qn (S) 3 units 0-19 [facility] Comment on above: Negative 0 - 19 Weak Positive 20 - 30 Moderate to Strong Positive >30 Serum tissue transglutaminas e (tTG) IgA antibody assay (units/volume)Ordered By: Jose Shanks on 12-25-2022 tTG IgA Qn (S) <2 U/mL 0-3 [facility] Comment on above: Negative 0 - 3 Weak Positive 4 - 10 Positive >10 Tissue Transglutaminase (tTG) has been identified as the endomysial antigen. Studies have demonstr- ated that endomysial IgA antibodies have over 99% specificity for gluten sensitive enteropathy. Serum tissue transglutaminas e (tTG) IgG antibody assay (units/volume)Ordered By: Jose Shanks on 12-25-2022 tTG IgG Qn (S) <2 U/mL 0-5 [facility] Comment on above: Negative 0 - 5 Weak Positive 6 - 9 Positive >9 Thyrotropin [Units/volume] i n Serum or PlasmaOrdered By: Jose Shanks on 12-25-2022 TSH Qn 0.78 m[IU]/L 0.45-5.33 [facility] Thyroxine (T4) free [Mass/vo lume] in Serum or PlasmaOrdered By: Dayne Horton on 12-25-2022 Free T4 [Mass/Vol] 0.93 ng/dL 0.61-1.12 [facility] Transferrin [Mass/volume] in Serum or PlasmaOrdered By: Kelly Hough on 12-25-2022 Transferrin [Mass/Vol] 172 mg/dL 203-362 [facility] Triiodothyronine (T3) Free [ Mass/volume] in Serum or PlasmaOrdered By: Dayne Horton on 12-25-2022 Free T3 [Mass/Vol] 3.54 pg/mL 2.50-3.90 [facility] Vitamin D+Metabolites [Mass/ volume] in Serum or PlasmaOrdered By: Dayne Horton on 12-25-2022 Vitamin D+Metabolites [Mass/Vol] 27.0 ng/mL 30-100 [facility] Comment on above: VITAMIN D STATUS 25( [place])VITAMIN D RANGE (ng/mL) Deficient <20 Insufficient 20 to <30Sufficient 30 to 100Reference: Pam MF,Abelardo NC, Cj GARZA, et al. Evaluation,treatment, and prevention of vitamin D deficiency; an Endocrine Society clinical practice guideline. JCEM. 2010; 96(7):1911-30. WBC Auto (Bld) [#/Vol]Ordere d By: Kelly Hough on 12-25-2022 WBC (Bld) [#/Vol] 6.8 10*3/uL 3.8-11.6 [facility] AMYLASEon 12-07-2022 Amylase [Catalytic activity/Vol] 82 U/L Normal 25-115 [facility] Comment on above: Performed By: #### U MICRO PREGU, ERUR #### [facility] [address] [place] [address] [address] Adam Mejía CARDIAC REBECCA 3-6on 3 CK [Catalytic activity/Vol] 50 U/L Normal 26-192 [facility] Comment on above: Performed By: #### U MICRO PREGU, ERUR #### [facility] [address] [place] [address] [address] Adam Mejía CK.MB [Mass/Vol] ng/mL Normal <=3.60 [facility] Comment on above: Performed By: #### U MICRO PREGU, ERUR #### [facility] [address] [place] [address] [address] Adam Mejía HSTROP <4.0 Normal 4.0-51.3 [facility] Comment on above: Result Comment: CUT- OFF POINTS HAVE BEEN ESTABLISHED BASED ON THE FOURTH UNIVERSAL DEFINITIONS OF MYOCARDIAL INFARCTION. THE UPPER REFERENCE LIMIT (URL) OF TROPONIN, DEFINED THE 99TH PERCENTILE OF cTnI DISTRIBUTION IN A REFERENCE POPULATION, HAS BEEN CONFIRMED THE DECISION THRESHOLD FOR AR DIAGNOSIS. Performed By: #### U SETH GAMEZ, JAJAR #### [facility] [address] [place] [address] Dr. Adam Mejía CARDIAC REBECCA ADMITon 023 CK [Catalytic activity/Vol] 60 U/L Normal 26-192 [facility] Comment on above: Performed By: #### U SETH GAMEZ, ERUR #### [facility] [address] [place] [address] Dr. Adam Mejía CK.MB [Mass/Vol] ng/mL Normal <=3.60 [facility] Comment on above: Performed By: #### SETH ELLINGTON, ERUR #### [facility] [address] [place] [address] Dr. Adam Mejía HSTROP <4.0 Normal 4.0-51.3 [facility] Comment on above: Result Comment: CUT- OFF POINTS HAVE BEEN ESTABLISHED BASED ON THE FOURTH UNIVERSAL DEFINITIONS OF MYOCARDIAL INFARCTION. THE UPPER REFERENCE LIMIT (URL) OF TROPONIN, DEFINED THE 99TH PERCENTILE OF cTnI DISTRIBUTION IN A REFERENCE POPULATION, HAS BEEN CONFIRMED THE DECISION THRESHOLD FOR AR DIAGNOSIS. Performed By: #### SETH ELLINGTON, ERUR #### [facility] [address] [place] [address] Dr. Adam Mejía OSMIN 17 ng/mL Normal 9-82 [facility] Comment on above: Performed By: #### U SETH GAMEZ, ERUR #### [facility] [address] [place] [address] Dr. Adam Mejía CBC AUTO DIFFon 12-07-2022 BASO # 0.0 103/ul Normal 0.0-0.1 [facility] Comment on above: Performed By: #### U SETH GAMEZ, ERUR #### [facility] [address] [place] [address] Dr. Adam Mejía Basophils/100 WBC (Bld) 0.3 % Normal 0.2-2.0 [facility] Comment on above: Performed By: #### U MICRO, PREGU, ERUR #### [facility] [address] [place] [address] Dr. Adam Mejía EO # 0.2 103/ul Normal 0.0-0.7 [facility] Comment on above: Performed By: #### U MICRO, PREGU, ERUR #### [facility] [address] [place] [address] Dr. Adam Mejía Eosinophils/100 WBC (Bld) 2.5 % Normal 0.9-7.0 [facility] Comment on above: Performed By: #### U MICRO, PREGU, ERUR #### [facility] [address] [place] [address] Dr. Adam Mejía Erythrocyte distribution width (RBC) [Ratio] 15.2 % Critically high 11.0-15.0 [facility] Comment on above: Performed By: #### U MICRO, PREGU, ERUR #### [facility] [address] [place] [address] Dr. Adam Mejía Hematocrit (Bld) [Volume fraction] 34.8 % Critically low 36.0-48.0 [facility] Comment on above: Performed By: #### U MICRO, PREGU, ERUR #### [facility] [address] [place] [address] Dr. Adam Mejía Hemoglobin (Bld) [Mass/Vol] 10.6 g/dL Critically low 12.0-16.0 [facility] Comment on above: Performed By: #### U MICRO, PREGU, ERUR #### [facility] [address] [place] [address] Dr. Adam Mejía IG # 0.02 10e3/ul Normal 0.00-0.03 [facility] Comment on above: Performed By: #### U MICRO, PREGU, ERUR #### [facility] [address] [place] [address] Dr. Adam Mejía IG % 0.2 % Normal 0.0-0.5 [facility] Comment on above: Performed By: #### U MICRO, PREGU, ERUR #### [facility] [address] [place] [address] [address] Adam Mejía LYMPH # 2.1 103/ul Normal 1.2-3.8 [facility] Comment on above: Performed By: #### U MICRO, PREGU, ERUR #### [facility] [address] [place] [address] [address] Adam Mejía Lymphocytes/100 WBC (Bld) 23.0 % Normal 20.5-60.0 [facility] Comment on above: Performed By: #### U MICRO, PREGU, ERUR #### [facility] [address] [place] [address] [address] Adam Mejía MANUAL DIFF REQ NO Normal [facility] Comment on above: Performed By: #### U MICRO, PREGU, ERUR #### [facility] [address] [place] [address] Dr. Adam Mejía MCH (RBC) [Entitic mass] 22.5 pg Critically low 26.7-34.0 [facility] Comment on above: Performed By: #### U MICRO, PREGU, ERUR #### [facility] [address] [place] [address] Dr. Adam Mejía MCHC (RBC) [Mass/Vol] 30.5 g/dL Normal 29.9-35.2 [facility] Comment on above: Performed By: #### U MICRO, PREGU, ERUR #### [facility] [address] [place] [address] Dr. Adam Mejía MCV (RBC) [Entitic vol] 73.9 fL Critically low 81.0-99.0 [facility] Comment on above: Performed By: #### U MICRO, PREGU, ERUR #### [facility] [address] [place] [address] [address] Adam Mejía MONO # 0.5 103/ul Normal 0.3-0.8 [facility] Comment on above: Performed By: #### U MICRO, PREGU, ERUR #### [facility] [address] [place] [address] [address] Adam Mejía Monocytes/100 WBC (Bld) 5.8 % Normal 1.7-12.0 [facility] Comment on above: Performed By: #### U MICRO, PREGU, ERUR #### [facility] [address] [place] [address] Dr. Adam Mejía NEUT # 6.3 103/ul Normal 1.4-6.5 [facility] Comment on above: Performed By: #### U MICRO, PREGU, ERUR #### [facility] [address] [place] [address] Dr. Adam Mejía Neutrophils/100 WBC (Bld) 68.2 % Normal 43.0-75.0 [facility] Comment on above: Performed By: #### U MICRO, PREGU, ERUR #### [facility] [address] [place] [address] Dr. Adam Mejía Platelet mean volume (Bld) [Entitic vol] 11.8 fL Normal 9.5-13.5 [facility] Comment on above: Performed By: #### U MICRO, PREGU, ERUR #### [facility] [address] [place] [address] Dr. Adam Mejía PLT 250 103/ul Normal 150-450 [facility] Comment on above: Performed By: #### U MICRO, PREGU, ERUR #### [facility] [address] [place] [address] Dr. Adam Mejía RBC 4.71 106/ul Normal 4.20-5.40 [facility] Comment on above: Performed By: #### U MICRO, PREGU, ERUR #### [facility] [address] [place] [address] Dr. Adam Mejía WBC 9.2 103/ul Normal 4.0-11.0 [facility] Comment on above: Performed By: #### U MICRO, PREGU, ERUR #### [facility] [address] [place] [address] Dr. Adam Mejía ER URINE PROFILEon 3 Bilirubin Ql (U) Negative Normal NEGATIVE [facility] Comment on above: Performed By: #### U MICRO, PREGU, ERUR #### [facility] [address] [place] [address] [address] Adam Mejía Clarity (U) CLEAR Normal CLEAR [facility] Comment on above: Performed By: #### U MICRO, PREGU, ERUR #### [facility] [address] [place] [address] [address] Adam Mejía Color (U) LT. YELLOW Normal YELLOW [facility] Comment on above: Performed By: #### U MICRO, PREGU, ERUR #### [facility] [address] [place] [address] [address] Adam Mejía ERUAHD A micrscopic examina tion will be performed if indicated. Normal [facility] Comment on above: Performed By: #### U MICRO, PREGU, ERUR #### [facility] [address] [place] [address] Dr. Adam Mejía Glucose Ql (U) Negative Normal NEGATIVE [facility] Comment on above: Performed By: #### U MICRO, PREGU, ERUR #### [facility] [address] [place] [address] [address] Adam Mejía Hemoglobin Ql (U) SMALL Abnormal NEGATIVE [facility] Comment on above: Performed By: #### U MICRO, PREGU, ERUR #### [facility] [address] [place] [address] [address] Adam Mejía Ketones Ql (U) Negative Normal NEGATIVE [facility] Comment on above: Performed By: #### U MICRO, PREGU, ERUR #### [facility] [address] [place] [address] [address] Adam Mejía LEUKOCYTES Negative Normal NEGATIVE [facility] Comment on above: Performed By: #### U MICRO, PREGU, ERUR #### [facility] [address] [place] [address] [address] Adam Mejía Nitrite Ql (U) Negative Normal NEGATIVE [facility] Comment on above: Performed By: #### U MICRO, PREGU, ERUR #### [facility] [address] [place] [address] [address] Adam Mejía pH (U) 8.0 [pH] Normal 5-9 [facility] Comment on above: Performed By: #### U MICRO, PREGU, ERUR #### [facility] [address] [place] [address] [address] Adam Mejía SPEC GRAVITY 1.010 Normal 1.005-<=1. 025 [facility] Comment on above: Performed By: #### U MICRO, PREGU, ERUR #### [facility] [address] [place] [address] Dr. Adam Mejía UA PROTEIN Negative Normal NEGATIVE/ TRACE [facility] Comment on above: Performed By: #### U MICRO, PREGU, ERUR #### [facility] [address] [place] [address] Dr. Adam Mejía UR MICRO IND INDICATED Normal [facility] Comment on above: Performed By: #### U MICRO, PREGU, ERUR #### [facility] [address] [place] [address] Dr. Adam Mejía Urobilinogen Qn (U) 1.0 {Brinda'U}/dL Normal 0.2 - 1. 0 [facility] Comment on above: Performed By: #### U MICRO, PREGU, ERUR #### [facility] [address] [place] [address] Dr. Adam Mejía LACTATE/LACTIC ACIDon 2022 Lactate [Moles/Vol] 0.5 mmol/L Normal 0.4-2.0 [facility] Comment on above: Performed By: #### U MICRO, PREGU, ERUR #### [facility] [address] [place] [address] Dr. Adam Mejía LIPASEon 12-07-2022 Lipase [Catalytic activity/Vol] 219.0 U/L Normal 73.0-393.0 [facility] Comment on above: Performed By: #### U MICRO, PREGU, ERUR #### [facility] [address] [place] [address] Dr. Adam Mejía LIVER PROFILEon 12-07-2022 Albumin [Mass/Vol] 3.7 g/dL Normal 3.4-5.0 [facility] Comment on above: Performed By: #### U MICRO, PREGU, ERUR #### [facility] [address] [address] [address] Aadm Mejía Albumin/Globulin [Mass ratio] 1.1 {ratio} Normal [facility] Comment on above: Performed By: #### U MICRO, PREGU, ERUR #### [facility] [address] [address] [address] Adam Mejía ALP [Catalytic activity/Vol] 57 U/L Normal 46-116 [facility] Comment on above: Performed By: #### U MICRO, PREGU, ERUR #### [facility] [address] [address] [address] Adam Mejía ALT [Catalytic activity/Vol] 15 U/L Normal 14-59 [facility] Comment on above: Performed By: #### U MICRO, PREGU, ERUR #### [facility] [address] [address] [address] Adam Mejía AST [Catalytic activity/Vol] 13 U/L Critically low 15-37 [facility] Comment on above: Performed By: #### U MICRO, PREGU, ERUR #### [facility] [address] [address] [address] Adam Mejía BILI, CONJUGATED 0.2 mg/dL Normal 0.0-0.2 [facility] Comment on above: Performed By: #### U MICRO, PREGU, ERUR #### [facility] [address] [address] [address] Adam Mejía Bilirubin [Mass/Vol] 0.2 mg/dL Normal 0.2-1.0 [facility] Comment on above: Performed By: #### U MICRO, PREGU, ERUR #### [facility] [address] [address] [address] Adam Mejía Globulin (S) [Mass/Vol] 3.4 g/dL Normal [facility] Comment on above: Performed By: #### U MICRO, PREGU, ERUR #### [facility] [address] [address] [address] Adam Mejía Protein [Mass/Vol] 7.1 g/dL Normal 6.4-8.2 [facility] Comment on above: Performed By: #### U MICRO, PREGU, ERUR #### [facility] [address] [place] [address] Dr. Adam Mejía PROF CHEM 8 (BAS METB)on Anion gap [Moles/Vol] 12.0 mmol/L Normal [facility] Comment on above: Performed By: #### U MICRO, PREGU, ERUR #### [facility] [address] [place] [address] Dr. Adam Mejía Calcium [Mass/Vol] 8.8 mg/dL Normal 8.5-10.1 [facility] Comment on above: Performed By: #### U MICRO, PREGU, ERUR #### [facility] [address] [place] [address] Dr. Adam Mejía Chloride [Moles/Vol] 102 mmol/L Normal 98-107 [facility] Comment on above: Performed By: #### U MICRO, PREGU, ERUR #### [facility] [address] [place] [address] Dr. Adam Mejía CO2 [Moles/Vol] 26.9 mmol/L Normal 21.0-32.0 [facility] Comment on above: Performed By: #### U MICRO, PREGU, ERUR #### [facility] [address] [place] [address] Dr. Adam Mejía Creatinine [Mass/Vol] 0.75 mg/dL Normal 0.55-1.02 [facility] Comment on above: Performed By: #### U MICRO, PREGU, ERUR #### [facility] [address] [place] [address] Dr. Adam Mejía EGFR-AF CYMRO >60 Normal >=60 [facility] Comment on above: Performed By: #### U MICRO, PREGU, ERUR #### [facility] [address] [place] [address] Dr. Adam Mejía EGFR-NON AF CYMRO >60 Normal >=60 [facility] Comment on above: Performed By: #### U MICRO, PREGU, ERUR #### [facility] [address] [address] [address] Adam Mejía Glucose [Mass/Vol] 97 mg/dL Normal 74-106 [facility] Comment on above: Performed By: #### U MICRO, PREGU, ERUR #### [facility] [address] [address] [address] Adam Mejía Potassium [Moles/Vol] 3.9 mmol/L Normal 3.5-5.1 [facility] Comment on above: Performed By: #### U MICRO, PREGU, ERUR #### [facility] [address] [address] [address] Adam Mejía Sodium [Moles/Vol] 137 mmol/L Normal 136-145 [facility] Comment on above: Performed By: #### U MICRO, PREGU, ERUR #### [facility] [address] [place] [address] Dr. Adam Mejía Urea nitrogen [Mass/Vol] 13.0 mg/dL Normal 7.0-18.0 [facility] Comment on above: Performed By: #### U MICRO, PREGU, ERUR #### [facility] [address] [address] [address] Adam Mejía Urea nitrogen/Creatinine [Mass ratio] 17.3 mg/mg Normal [facility] Comment on above: Performed By: #### U MICRO, PREGU, ERUR #### [facility] [address] [place] [address] Dr. Adam Mejía URINE MICROSCOPIC ONLYon BACTERIA NONE SEEN Normal NONE SEEN [facility] Comment on above: Performed By: #### U MICRO, PREGU, ERUR #### [facility] [address] [address] [address] Adam Mejía Bacteria identified Cx Nom (U) NOT INDICATED Normal [facility] Comment on above: Performed By: #### U MICRO, PREGU, ERUR #### [facility] [address] [place] [address] Dr. Adam Mejía CAST NONE SEEN Normal NONE SEEN [facility] Comment on above: Performed By: #### U MICRO, PREGU, ERUR #### [facility] [address] [address] [address] Adam Mejía Crystals LM Nom (Urine sed) NONE SEEN Normal NONE SEEN [facility] Comment on above: Performed By: #### U MICRO, PREGU, ERUR #### [facility] [address] [address] [address] Adam Mejía Epithelial cells LM Ql (Urine sed) RARE Normal NONE SEEN /RARE [facility] Comment on above: Performed By: #### U MICRO, PREGU, ERUR #### [facility] [address] [address] [address] Adam Mejía MUCOUS NONE SEEN Normal NONE SEEN [facility] Comment on above: Performed By: #### U MICRO, PREGU, ERUR #### [facility] [address] [place] [address] Dr. Adam Mejía RBC 2-5 Abnormal 0-2 [facility] Comment on above: Performed By: #### U MICRO, PREGU, ERUR #### [facility] [address] [address] [address] Adam Mejía WBC NONE SEEN Normal NONE SEEN [facility] Comment on above: Performed By: #### U MICRO, PREGU, ERUR #### [facility] [address] [address] [address] Adam Mejía XR ABD FLAT UP_PA [...] LENI ANGEL Date: 2022-12-07 00:23 Normal [facility] US PELVIS TRANSVAGon 023 US [...] by: KALPESH FOWLER Date: 2022-11-29 11:27 Normal [facility] No Panel InformationOrdered By: Dayne Horton on 10-12-2022 25-Hydroxy Vitamin D Total 10.4 ng/mL 30-100 [facility] Comment on above: VITAMIN D STATUS 25( OH)VITAMIN D RANGE (ng/mL) Deficient <20 Insufficient 20 to <30Sufficient 30 to 100Reference: Pam MF,Abelardo MUÑOZ, Cj GARZA, et al. Evaluation,treatment, and prevention of vitamin D deficiency; an Endocrine Society clinical practice guideline. JCEM. 2010; 96(7):1911-30. Serum or plasma thyroglobuli n antibody assay (units/volume)Ordered By: Dayne Horton on 10-12-2022 Thyroglobulin Ab Qn [IU]/mL 0.0-0.9 [facility] Comment on above: Thyroglobulin Antibo dy measured by MASS-ACTIVE TechgroupMethodologyPerformed at: CB - [facility] [address] [id number] Director: Alan Macias PhD, Phone: [phone] Serum or plasma thyroperoxid ase antibody assay (units/volume)Ordered By: Dayne Horton on 10-12-2022 TPO Ab Qn 11 [IU]/mL 0-34 [facility] Serum thyrotropin receptor a ntibody assay (units/volume)Ordered By: Dayne Horton on 10-12-2022 TSH receptor Ab Qn (S) <1.10 IU/L 0.00-1.75 [facility] Comment on above: Performed at: - L [address] [id number] Director: Artemio Guillen MD, Phone: [phone] TSH DL <= 0.005 mIU/L QnOrde red By: Dayne Horton on 10-12-2022 TSH Qn 0.06 m[IU]/L 0.45-5.33 [facility] Thyroxine (T4) free [Mass/vo lume] in Serum or PlasmaOrdered By: Dayne Horton on 10-12-2022 Free T4 [Mass/Vol] 1.02 ng/dL 0.61-1.12 [facility] Triiodothyronine (T3) Free [ Mass/volume] in Serum or PlasmaOrdered By: Dayne Horton on 10-12-2022 Free T3 [Mass/Vol] 3.90 pg/mL 2.50-3.90 [facility] Basophils Auto (Bld) [#/Vol] Ordered By: Kelly Hough on 10-03-2022 Basophils (Bld) [#/Vol] 0.0 10*3/uL 0.0-0.2 [facility] Basophils/100 WBC Auto (Bld) Ordered By: Kelly Hough on 10-03-2022 Basophils/100 WBC (Bld) 0.7 % . [facility] CT biopsyOrdered By: Kelly Ramos on 10-03-2022 Transferrin [Mass/Vol] 230 mg/dL 180-380 [facility] Eosinophils Auto (Bld) [#/Vo l]Ordered By: Kelly Hough on 10-03-2022 Eosinophils (Bld) [#/Vol] 0.1 10*3/uL 0.0-0.45 [facility] Eosinophils/100 WBC Auto (Bl d)Ordered By: Kelly Hough on 10-03-2022 Eosinophils/100 WBC (Bld) 2.4 % . [facility] Erythrocyte distribution wid th Auto (RBC) [Ratio]Ordered By: Kelly Hough on 10-03-2022 Erythrocyte distribution width (RBC) [Ratio] 15.2 % 11.9-15.3 [facility] Ferritin [Mass/volume] in Se rum or PlasmaOrdered By: Kelly Hough on 10-03-2022 Ferritin [Mass/Vol] 7.7 ng/mL 11-306.8 [facility] Hematocrit Auto (Bld) [Volum e fraction]Ordered By: Kelly Hough on 10-03-2022 Hematocrit (Bld) [Volume fraction] 31.2 % 34.0-46.4 [facility] Hemoglobin [Mass/volume] in BloodOrdered By: Kelly Hough on 10-03-2022 Hemoglobin (Bld) [Mass/Vol] 9.7 g/dL 11.8-15.4 [facility] Iron [Mass/volume] in Serum or PlasmaOrdered By: Kelly Hough on 10-03-2022 Iron [Mass/Vol] 96 ug/dL 40-150 [facility] Iron binding capacity [Mass/ volume] in Serum or PlasmaOrdered By: Kelly Hough on 10-03-2022 Iron binding capacity [Mass/Vol] 322 ug/dL 255-450 [facility] Iron saturation [Mass Fracti on] in Serum or PlasmaOrdered By: Kelly Hough on 10-03-2022 Iron saturation [Mass fraction] 29.8 % 20-50 [facility] Leukocytes [#/volume] correc delmer for nucleated erythrocytes in Blood by Automated counOrdered By: Kelly Hough on 10-03-2022 WBC corrected for nucl RBC Auto (Bld) [#/Vol] 5.6 10*3/uL 3.8-11.6 [facility] Lymphocytes Auto (Bld) [#/Vo l]Ordered By: Kelly Hough on 10-03-2022 Lymphocytes (Bld) [#/Vol] 1.7 10*3/uL 1.00-4.8 [facility] Lymphocytes/100 WBC Auto (Bl d)Ordered By: Kelly Hough on 10-03-2022 Lymphocytes/100 WBC (Bld) 30.9 % . [facility] MCH Auto (RBC) [Entitic mass ]Ordered By: Kelly Hough on 10-03-2022 MCH (RBC) [Entitic mass] 21.8 pg 24.7-34.3 [facility] MCHC Auto (RBC) [Mass/Vol]Or dered By: Kelly Hough on 10-03-2022 MCHC (RBC) [Mass/Vol] 31.2 g/dL 32.0-35.0 [facility] MCV Auto (RBC) [Entitic vol] Ordered By: Kelly Hough on 10-03-2022 MCV (RBC) [Entitic vol] 70.0 fL 80-100 [facility] Monocytes Auto (Bld) [#/Vol] Ordered By: Kelly Hough on 10-03-2022 Monocytes (Bld) [#/Vol] 0.4 10*3/uL 0.0-0.8 [facility] Monocytes/100 WBC Auto (Bld) Ordered By: Kelly Hough on 10-03-2022 Monocytes/100 WBC (Bld) 6.3 % . [facility] Neutrophils Auto (Bld) [#/Vo l]Ordered By: Kelly Hough on 10-03-2022 Neutrophils (Bld) [#/Vol] 3.4 10*3/uL 1.8-7.7 [facility] Neutrophils/100 WBC Auto (Bl d)Ordered By: Kelly Hough on 10-03-2022 Neutrophils/100 WBC (Bld) 59.7 % . [facility] Nucleated erythrocytes [Pres ence] in Blood by Automated countOrdered By: Kelly Hough on 10-03-2022 Nucleated RBC Auto Ql (Bld) 0.1 /100{WBC} 0-0.5 [facility] Platelet mean volume Auto (B ld) [Entitic vol]Ordered By: Kelly Hough on 10-03-2022 Platelet mean volume (Bld) [Entitic vol] 9.4 fL 6.3-10.7 [facility] Platelets Auto (Bld) [#/Vol] Ordered By: Kelly Hough on 10-03-2022 Platelets (Bld) [#/Vol] 226 10*3/uL 150-450 [facility] RBC Auto (Bld) [#/Vol]Ordere d By: Kelly Hough on 10-03-2022 RBC (Bld) [#/Vol] 4.46 10*6/uL 3.60-5.00 [facility] WBC Auto (Bld) [#/Vol]Ordere d By: Kelly Hough on 10-03-2022 WBC (Bld) [#/Vol] 5.6 10*3/uL 3.8-11.6 [facility] Free thyroxine indexOrdered By: Yudelka Lopez on 10-02-2022 Free T4 index Calc [Mass/Vol] 2.8 1.2-4.9 [facility] No Panel InformationOrdered By: Yudelka Lopze on 10-02-2022 Free Thyroxine (T4) Direct 8.6 ug/dL 4.5-12.0 [facility] TSH DL <= 0.005 mIU/L QnOrde red By: Yudelka Lopez on 10-02-2022 TSH Qn 0.037 m[IU]/L 0.450-4.50 0 [facility] Triiodothyronine (T3) [Mass/ volume] in Serum or PlasmaOrdered By: Yudelka Lopez on 10-02-2022 T3 [Mass/Vol] 135 ng/dL 71-180 [facility] Comment on above: Performed at: [address] [id number] Director: Alan Macias PhD, Phone: [phone] Triiodothyronine (T3) resin uptake testOrdered By: Yudelka Lopez on 10-02-2022 T3RU 33 % 24-39 [facility] Activated partial thrombopla stin time (aPTT) in platelet poor plasma by coagulation aOrdered By: Jim Vega on 09-21-2022 aPTT Coag (PPP) [Time] 30.8 s 25.1-36.5 [facility] Albumin [Mass/volume] in Ser um or PlasmaOrdered By: Jim Vega on 09-21-2022 Albumin [Mass/Vol] 3.7 g/dL 3.2-5.5 [facility] Automated erythrocytes count in urine sediment (number/area)Ordered By: Jim Vega on 09-21-2022 RBC Auto (Urine sed) [#/Area] 1-2 [HPF] 0-4 [facility] Automated leukocytes count i n urine sediment (number/area)Ordered By: Jim Vega on 09-21-2022 WBC Auto (Urine sed) [#/Area] 0-1 [HPF] 0-4 [facility] Basophils Auto (Bld) [#/Vol] Ordered By: Jim Vega on 09-21-2022 Basophils (Bld) [#/Vol] 0.0 10*3/uL 0.0-0.2 [facility] Basophils/100 WBC Auto (Bld) Ordered By: Jim Vega on 09-21-2022 Basophils/100 WBC (Bld) 0.5 % . [facility] Bilirubin Test strip Ql (U)O rdered By: Jim Vega on 09-21-2022 Bilirubin Ql (U) Negative Negative [facility] COVID CepheidOrdered By: Rahat Vega on 09-21-2022 SARS-CoV-2 (COVID-19) Ab IA Ql Negative Negative [facility] Comment on above: This is a duplicate [facility] Xpert Xpress CoV-2/Flu/RSV Plus RNA by RT-PCR result to be used for statistical tracking purpose only. SARS-CoV-2 (COVID-19) RNA HIRAM+probe Ql (Unsp spec) [facility] SARS-CoV-2 (COVID-19) RNA HIRAM+probe Ql (Unsp spec) [facility] Color Auto (U)Ordered By: Narinder Vega on 09-21-2022 Color (U) Yellow Yellow [facility] Creatinine and Glomerular fi ltration rate.predicted panel (S/P/Bld)Ordered By: Jim Vega on 09-21-2022 Creatinine [Mass/Vol] 0.79 mg/dL 0.44-1.03 [facility] Eosinophils Auto (Bld) [#/Vo l]Ordered By: Jim Vega on 09-21-2022 Eosinophils (Bld) [#/Vol] 0.1 10*3/uL 0.0-0.45 [facility] Eosinophils/100 WBC Auto (Bl d)Ordered By: Jim Vega on 09-21-2022 Eosinophils/100 WBC (Bld) 2.7 % . [facility] Erythrocyte distribution wid th Auto (RBC) [Ratio]Ordered By: Jim Vega on 09-21-2022 Erythrocyte distribution width (RBC) [Ratio] 15.6 % 11.9-15.3 [facility] Estimated glomerular filtrat ion rate (GFR) non- AmericanOrdered By: Jim Vega on 09-21-2022 GFR/1.73 sq M.predicted among non-blacks MDRD (S/P/Bld) [Vol rate/Area] > 60 mL/Min [facility] Globulin Calc (S) [Mass/Vol] Ordered By: Jim Vega on 09-21-2022 Globulin (S) [Mass/Vol] 3.3 g/dL [facility] HCG ( test) IA.rapi d Ql (U)Ordered By: Jim Vega on 09-21-2022 HCG ( test) Ql (U) Negative [facility] Hematocrit Auto (Bld) [Volum e fraction]Ordered By: Jim Vega on 09-21-2022 Hematocrit (Bld) [Volume fraction] 31.9 % 34.0-46.4 [facility] Hemoglobin [Mass/volume] in BloodOrdered By: Jim Vega on 09-21-2022 Hemoglobin (Bld) [Mass/Vol] 9.9 g/dL 11.8-15.4 [facility] Ketones Auto test strip (U) [Mass/Vol]Ordered By: Jim Vega on 09-21-2022 Ketones (U) [Mass/Vol] Negative Negative [facility] - CoagulationOrde red By: Jim Vega on 09-21-2022 PT Coag (PPP) [Time] 13.3 s 9.0-12.9 [facility] - UrinalysisOrder ed By: Jim Vega on 09-21-2022 Hyaline casts LM Ql (Urine sed) None seen [LPF] 0-8 [facility] Leukocytes [#/volume] correc delmer for nucleated erythrocytes in Blood by Automated counOrdered By: Jim Vega on 09-21-2022 WBC corrected for nucl RBC Auto (Bld) [#/Vol] 5.4 10*3/uL 3.8-11.6 [facility] Lymphocytes Auto (Bld) [#/Vo l]Ordered By: Jim Vega on 09-21-2022 Lymphocytes (Bld) [#/Vol] 1.4 10*3/uL 1.00-4.8 [facility] Lymphocytes/100 WBC Auto (Bl d)Ordered By: Jim Vega on 09-21-2022 Lymphocytes/100 WBC (Bld) 26.1 % . [facility] MCH Auto (RBC) [Entitic mass ]Ordered By: Jim Vega on 09-21-2022 MCH (RBC) [Entitic mass] 21.7 pg 24.7-34.3 [facility] MCHC Auto (RBC) [Mass/Vol]Or dered By: Jim Vega on 09-21-2022 MCHC (RBC) [Mass/Vol] 31.0 g/dL 32.0-35.0 [facility] MCV Auto (RBC) [Entitic vol] Ordered By: Jim Vega on 09-21-2022 MCV (RBC) [Entitic vol] 70.1 fL 80-100 [facility] Monocyte distribution width [Entitic volume] in Blood by AutomatedOrdered By: Jim Vega on 09-21-2022 Monocyte distribution width Auto (Bld) [Entitic vol] 15.00 % 0.00-20.00 [facility] Monocytes Auto (Bld) [#/Vol] Ordered By: Jim Vega on 09-21-2022 Monocytes (Bld) [#/Vol] 0.4 10*3/uL 0.0-0.8 [facility] Monocytes/100 WBC Auto (Bld) Ordered By: Jim Vega on 09-21-2022 Monocytes/100 WBC (Bld) 6.9 % . [facility] Neutrophils Auto (Bld) [#/Vo l]Ordered By: Jim Vega on 09-21-2022 Neutrophils (Bld) [#/Vol] 3.4 10*3/uL 1.8-7.7 [facility] Neutrophils/100 WBC Auto (Bl d)Ordered By: Jim Vega on 09-21-2022 Neutrophils/100 WBC (Bld) 63.8 % . [facility] Nitrite Test strip Ql (U)Ord ered By: Jim Vega on 09-21-2022 Nitrite Ql (U) Negative Negative [facility] No Panel InformationOrdered By: Jim Vega on 09-21-2022 D-Dimer Quantitative (PE/DVT) 205 ng/mL 0-243 [facility] Comment on above: The reference range [...] conditions. Estimated GFR () > 60 mL/Min [facility] Comment on above: GFR estimated refere nce range: According to KDOQI guidelines, <60 ml/min/1.73m2 is sufficient to diagnose a patient with chronic kidney disease. Pharmacy Creatinine Clearance (Chem 96.49 [facility] Nucleated erythrocytes [Pres ence] in Blood by Automated countOrdered By: Jim Vega on 09-21-2022 Nucleated RBC Auto Ql (Bld) 0.4 /100{WBC} 0-0.5 [facility] Platelet mean volume Auto (B ld) [Entitic vol]Ordered By: Jim Vega on 09-21-2022 Platelet mean volume (Bld) [Entitic vol] 10.0 fL 6.3-10.7 [facility] Platelet poor plasma interna tional normalized ratio (INR) by coagulation assay (relatOrdered By: Jim Vega on 09-21-2022 INR Coag (PPP) [Relative time] 1.2 {INR} [facility] Comment on above: INR Therapeutic Rang [...] 09-21-2022 Platelets (Bld) [#/Vol] 215 10*3/uL 150-450 [facility] Protein Auto test strip (U) [Mass/Vol]Ordered By: Jim Vega on 09-21-2022 Protein (U) [Mass/Vol] Negative Negative [facility] Protein [Mass/volume] in Ser um or PlasmaOrdered By: Jim Vega on 09-21-2022 Protein [Mass/Vol] 7.0 g/dL 6.1-7.9 [facility] RBC Auto (Bld) [#/Vol]Ordere d By: Jim Vega on 09-21-2022 RBC (Bld) [#/Vol] 4.54 10*6/uL 3.60-5.00 [facility] Serum or plasma alanine keene otransferase measurement without P-5'-P (enzymatic activiOrdered By: Jim Vega on 09-21-2022 ALT No additional P-5'-P [Catalytic activity/Vol] 11 U/L 10-60 [facility] Serum or plasma albumin/glob ulin mass ratioOrdered By: Jim Vega on 09-21-2022 Albumin/Globulin [Mass ratio] 1.1 {ratio} [facility] Serum or plasma alkaline jared sphatase measurement (enzymatic activity/volume)Ordered By: Jim Vega on 09-21-2022 ALP [Catalytic activity/Vol] 47 U/L 32-92 [facility] Serum or plasma anion gap de terminationOrdered By: Jim Vega on 09-21-2022 Anion gap [Moles/Vol] 10.0 mmol/L 6.0-15.0 [facility] Serum or plasma aspartate am inotransferase measurement (enzymatic activity/volume)Ordered By: Jim Vega on 09-21-2022 AST [Catalytic activity/Vol] 13 U/L 10-42 [facility] Serum or plasma calcium marychuy urement (mass/volume)Ordered By: Jim Vega on 09-21-2022 Calcium [Mass/Vol] 8.9 mg/dL 8.2-10.2 [facility] Serum or plasma chloride nemo surement (moles/volume)Ordered By: Jim Vega on 09-21-2022 Chloride [Moles/Vol] 105 mmol/L 95-114 [facility] Serum or plasma glucose marychuy urement (mass/volume)Ordered By: Jim Vega on 09-21-2022 Glucose [Mass/Vol] 114 mg/dL 70-100 [facility] Comment on above: ADA recommended refe rence rangeRandom Glucose Reference Range is dependent on time and content of last meal. Glucose of more than 200 mg/dL in a nonstressed, ambulatory subject supports the diagnosis of Diabetes Mellitus. Serum or plasma potassium me asurement (moles/volume)Ordered By: Jim Vega on 09-21-2022 Potassium [Moles/Vol] 3.5 mmol/L 3.5-5.1 [facility] Serum or plasma sodium measu rement (moles/volume)Ordered By: Jim Vega on 09-21-2022 Sodium [Moles/Vol] 134 mmol/L 136-146 [facility] Serum or plasma total biliru bin measurement (mass/volume)Ordered By: Jim Vega on 09-21-2022 Bilirubin [Mass/Vol] 0.5 mg/dL 0.3-1.2 [facility] Serum or plasma total carbon dioxide measurement (moles/volume)Ordered By: Jim Vega on 09-21-2022 CO2 [Moles/Vol] 22.5 mmol/L 22.0-30.0 [facility] Serum or plasma urea nitroge n measurement (mass/volume)Ordered By: Jim Vega on 09-21-2022 Urea nitrogen [Mass/Vol] 5 mg/dL 9-23 [facility] Specific gravity Auto test s trip (U) [Rel density]Ordered By: Jim Vega on 09-21-2022 Specific gravity (U) [Rel density] 1.004 1.001-1.03 0 [facility] Squamous epithelial cells de tection in urine sediment by light microscopyOrdered By: Jim Vega on 09-21-2022 Epithelial cells.squamous LM Ql (Urine sed) 0-1 [HPF] 0-2 [facility] TSH DL <= 0.005 mIU/L QnOrde red By: Jim Vega on 09-21-2022 TSH Qn 0.14 m[IU]/L 0.45-5.33 [facility] Thyroxine (T4) free [Mass/vo lume] in Serum or PlasmaOrdered By: Jim Vega on 09-21-2022 Free T4 [Mass/Vol] 1.30 ng/dL 0.61-1.12 [facility] Troponin I.cardiac [Mass/vol ume] in Serum or Plasma by High sensitivity methodOrdered By: Jim Vega on 09-21-2022 Troponin I.cardiac High sensitivity method [Mass/Vol] < 3 pg/mL 0-15 [facility] Urine bacteria detection by automated methodOrdered By: Jim Vega on 09-21-2022 Bacteria Auto Ql (U) None seen None Seen [facility] Urine clarity by refractomet ry automatedOrdered By: Jim Vega on 09-21-2022 Clarity Refractometry automated (U) Clear Clear [facility] Urine glucose measurement by automated test strip (mass/volume)Ordered By: Jim Vega on 09-21-2022 Glucose Auto test strip (U) [Mass/Vol] Normal mg/dL Normal [facility] Urine hemoglobin detection b y automated test stripOrdered By: Jim Vega on 09-21-2022 Hemoglobin Auto test strip Ql (U) Trace Negative [facility] Urine leukocyte esterase det ection by automated test stripOrdered By: Jim Vega on 09-21-2022 Leukocyte esterase Auto test strip Ql (U) Negative Negative [facility] Urobilinogen Auto test strip (U) [Mass/Vol]Ordered By: Jim Vega on 09-21-2022 Urobilinogen (U) [Mass/Vol] Normal mg/dL Normal [facility] WBC Auto (Bld) [#/Vol]Ordere d By: Jim Vega on 09-21-2022 WBC (Bld) [#/Vol] 5.4 10*3/uL 3.8-11.6 [facility] pH Auto test strip (U)Ordere d By: Jim Vega on 09-21-2022 pH (U) 7.0 [pH] 5.0-9.0 [facility] Anisocytosis LM Ql (Bld)Orde red By: Tejinder Peraza on 09-15-2022 Anisocytosis Ql (Bld) Slight [facility] Basophils Auto (Bld) [#/Vol] Ordered By: Tejinder Peraza on 09-15-2022 Basophils (Bld) [#/Vol] 0.0 10*3/uL 0.0-0.2 [facility] Basophils/100 WBC Auto (Bld) Ordered By: Tejinder Peraza on 09-15-2022 Basophils/100 WBC (Bld) 0.3 % . [facility] Eosinophils Auto (Bld) [#/Vo l]Ordered By: Tejinder Peraza on 09-15-2022 Eosinophils (Bld) [#/Vol] 0.1 10*3/uL 0.0-0.45 [facility] Eosinophils/100 WBC Auto (Bl d)Ordered By: Tejinder Somarii on 09-15-2022 Eosinophils/100 WBC (Bld) 1.2 % . [facility] Erythrocyte distribution wid th Auto (RBC) [Ratio]Ordered By: Tejinder Peraza on 09-15-2022 Erythrocyte distribution width (RBC) [Ratio] 15.2 % 11.9-15.3 [facility] Hematocrit Auto (Bld) [Volum e fraction]Ordered By: Tejinder Peraza on 09-15-2022 Hematocrit (Bld) [Volume fraction] 30.9 % 34.0-46.4 [facility] Hemoglobin [Mass/volume] in BloodOrdered By: Tejinder Peraza on 09-15-2022 Hemoglobin (Bld) [Mass/Vol] 9.6 g/dL 11.8-15.4 [facility] Hypochromia LM Ql (Bld)Order ed By: Tejinder Peraza on 09-15-2022 Hypochromia Ql (Bld) Slight [facility] Leukocytes [#/volume] correc delmer for nucleated erythrocytes in Blood by Automated counOrdered By: Tejinder Peraza on 09-15-2022 WBC corrected for nucl RBC Auto (Bld) [#/Vol] 7.5 10*3/uL 3.8-11.6 [facility] Lymphocytes Auto (Bld) [#/Vo l]Ordered By: Tejinder Peraza on 09-15-2022 Lymphocytes (Bld) [#/Vol] 1.7 10*3/uL 1.00-4.8 [facility] Lymphocytes/100 WBC Auto (Bl d)Ordered By: Tejinder Peraza on 09-15-2022 Lymphocytes/100 WBC (Bld) 22.2 % . [facility] MCH Auto (RBC) [Entitic mass ]Ordered By: Tejinder Peraza on 09-15-2022 MCH (RBC) [Entitic mass] 21.8 pg 24.7-34.3 [facility] MCHC Auto (RBC) [Mass/Vol]Or dered By: Tejinder Peraza on 09-15-2022 MCHC (RBC) [Mass/Vol] 31.1 g/dL 32.0-35.0 [facility] MCV Auto (RBC) [Entitic vol] Ordered By: Tejinder Peraza on 09-15-2022 MCV (RBC) [Entitic vol] 70.0 fL 80-100 [facility] Microcytes LM Ql (Bld)Ordere d By: Tejinder Peraza on 09-15-2022 Microcytes Ql (Bld) Slight [facility] Monocytes Auto (Bld) [#/Vol] Ordered By: Tejinder Peraza on 09-15-2022 Monocytes (Bld) [#/Vol] 0.4 10*3/uL 0.0-0.8 [facility] Monocytes/100 WBC Auto (Bld) Ordered By: Tejinder Peraza on 09-15-2022 Monocytes/100 WBC (Bld) 5.3 % . [facility] Neutrophils Auto (Bld) [#/Vo l]Ordered By: Tejinder Peraza on 09-15-2022 Neutrophils (Bld) [#/Vol] 5.3 10*3/uL 1.8-7.7 [facility] Neutrophils/100 WBC Auto (Bl d)Ordered By: Tejinder Peraza on 09-15-2022 Neutrophils/100 WBC (Bld) 71.0 % . [facility] No Panel InformationOrdered By: Tejinder Peraza on 09-15-2022 D-Dimer Quantitative (PE/DVT) 245 ng/mL 0-243 [facility] Comment on above: The reference range [...] RBC Auto Ql (Bld) 0.1 /100{WBC} 0-0.5 [facility] Ovalocyte detectionOrdered B y: Tejinder Peraza on 09-15-2022 Ovalocytes LM Ql (Bld) Slight [facility] Platelet adequacy [Presence] in Blood by Light microscopyOrdered By: Kip Soviak on 09-15-2022 Platelets LM Ql (Bld) Normal Normal [facility] Platelet mean volume Auto (B ld) [Entitic vol]Ordered By: Kip Soviak on 09-15-2022 Platelet mean volume (Bld) [Entitic vol] 9.8 fL 6.3-10.7 [facility] Platelet morphology finding [Identifier] in BloodOrdered By: Tejinder Soviak on 09-15-2022 Platelet morphology finding Nom (Bld) Normal Normal [facility] Platelets Auto (Bld) [#/Vol] Ordered By: Tejinder Soviak on 09-15-2022 Platelets (Bld) [#/Vol] 212 10*3/uL 150-450 [facility] Poikilocytosis [Presence] in Blood by Light microscopyOrdered By: Tejinder Soviak on 09-15-2022 Poikilocytosis LM Ql (Bld) Slight [facility] Polychromasia [Presence] in Blood by Light microscopyOrdered By: Kip Soviak on 09-15-2022 Polychromasia LM Ql (Bld) Slight [facility] RBC Auto (Bld) [#/Vol]Ordere d By: Dhavalp Soviak on 09-15-2022 RBC (Bld) [#/Vol] 4.42 10*6/uL 3.60-5.00 [facility] RBC morphologyOrdered By: Dhaval p Soviak on 09-15-2022 RBC morphology finding Nom (Bld) N/A [facility] WBC Auto (Bld) [#/Vol]Ordere d By: Kip Soviak on 09-15-2022 WBC (Bld) [#/Vol] 7.5 10*3/uL 3.8-11.6 [facility] AFP (TUMOR MARKER)on 022 AFP, Serum, Tumor Marker <1.8 Normal 0.0-4.7 [facility] Comment on above: Result Comment: [employer] Electrochemiluminescence Immunoassay (ECLIA) . Values obtained with different assay methods or kits cannot be used interchangeably. Results cannot be interpreted as absolute evidence of the presence or absence of malignant disease. . This test is not interpretable in females. Performed By: #### U MICRO, PREGU, ERUR #### [facility] [address] [address] [address] Adam Mejía CA 125on 08-06-2022 Cancer Antigen (CA) 125 29.7 U/mL Normal 0.0-38.1 [facility] Comment on above: Result Comment: [employer] [employer] Electrochemiluminescence Immunoassay (ECLIA) . Values obtained with different assay methods or kits cannot be used interchangeably. Results cannot be interpreted as absolute evidence of the presence or absence of malignant disease. Performed By: #### U MICRO, PREGU, ERUR #### [facility] [address] [address] [address] Adam Mejía CEAon 08-06-2022 CEA 0.9 ng/mL Normal 0.0-4.7 [facility] Comment on above: Result Comment: Nons mokers <3.9 Smokers <5.6 . [employer] Electrochemiluminescence Immunoassay (ECLIA) . Values obtained with different assay methods or kits cannot be used interchangeably. Results cannot be interpreted as absolute evidence of the presence or absence of malignant disease. Performed By: #### U MICRO, PREGU, ERUR #### [facility] [address] [place] [address] Dr. Adam Mejía HCG QUANT TUMOR MARKERon HCG QNT TUMOR MARKER <1 Normal [facility] Comment on above: Result Comment: Fema [...] developed and its performance characteristics determined by [employer]. It has not been cleared or approved by the Food and Drug Administration for use as a tumor marker. . This test is not interpretable as a tumor marker in females. Performed By: #### H CGTMOR #### [facility] [address] [address] [address] Adam Mejía LDHon 08-05-2022 LDH 164 U/L Normal 81-234 [facility] Comment on above: Performed By: #### U MICRO, PREGU, ERUR #### [facility] [id number] Adam Mejía US PELVIS TRANSVAGon 022 [...] by: KALPESH FOWLER Date: 2022-07-29 06:26 Normal [facility] PAP ACOG PANEL 2: 30 to 65on 07-10-2022 . . Normal [facility] Comment on above: Result Comment: Perf ormed at: WB Performed By: #### [id number] #### [facility] [address] [address] [address] Adam Mejía Age Gdln ACOG Testing 30-65 Normal [facility] Comment on above: Performed By: #### [id number] #### [facility] [address] [place] [address] Dr. Adam Mejía DIAGNOSIS: Comment Normal [facility] Comment on above: Result Comment: NEGA TIVE FOR INTRAEPITHELIAL LESION OR MALIGNANCY. Performed at: WB Performed By: #### [id number] #### [facility] [address] [place] [address] Dr. Adam Mejía HPV Aptima Negative Normal Negative [facility] Comment on above: Result Comment: This nucleic acid amplification test detects fourteen high-risk HPV types (16,18,31,33,35,39,45,51,52,56,58,59,66,68) without differentiation. Performed at: =G Performed By: #### [id number] #### [facility] [address] [place] [address] Dr. Adam Mejía Methodology: Comment Normal [facility] Comment on above: Result Comment: This liquid based ThinPrep(R) pap test was screened with the use of an image guided system. Performed at: WB Performed By: #### [id number] #### [facility] [address] [place] [address] Dr. Adam Mejía Note: Comment Normal [facility] Comment on above: Result Comment: The Pap smear is a screening test designed to aid in the detection of premalignant and malignant conditions of the uterine cervix. It is not a diagnostic procedure and should not be used as the sole means of detecting cervical cancer. Both false-positive and false-negative reports do occur. . Performed at: WB Performed By: #### [id number] #### [facility] [address] [place] [address] Dr. Adam Mejía Performed by: Comment Normal [facility] Comment on above: Result Comment: [employer] (ASCP) Performed at: WB Performed By: #### [id number] #### [facility] [address] [place] [address] Dr. Adam Mejía Specimen adequacy: Comment Normal [facility] Comment on above: Result Comment: Sati sfactory for evaluation. No endocervical component is identified. Performed at: WB Performed By: #### [id number] #### [facility] [address] [address] [address] Adam Mejía CHLAMYDIA/GONOCOCCUS HIRAM (SW AB/URINE/PAPon 07-05-2022 Chlamydia trachomatis, HIRAM Negative Normal Negative [facility] Comment on above: Performed By: #### C T/NGNA #### [facility] [address] [address] [address] Adam Mejía Neisseria gonorrhoeae, HIRAM Negative Normal Negative [facility] Comment on above: Performed By: #### C T/NGNA #### [facility] [address] [address] [address] Adam Mejía VAGINITIS/VAGINOSIS DNA PROB [place] 07-05-2022 [place] species Positive Abnormal Negative [facility] Comment on above: Performed By: #### V AGINT #### [facility] [address] [place] [address] Dr. Adam Mejía Gardnerella vaginalis Positive Abnormal Negative [facility] Comment on above: Performed By: #### V AGINT #### [facility] [address] [address] [address] Adam Mejía Trichomonas vaginalis Negative Normal Negative [facility] Comment on above: Performed By: #### V AGINT #### [facility] [address] [place] [address] Dr. Adam Mejía Activated partial thrombopla stin time (aPTT) in platelet poor plasma by coagulation aOrdered By: Frank Silva on 07-04-2022 aPTT Coag (PPP) [Time] 30.9 s 25.1-36.5 [facility] Albumin [Mass/volume] in Ser um or PlasmaOrdered By: Frank Silva on 07-04-2022 Albumin [Mass/Vol] 3.6 g/dL 3.2-5.5 [facility] Automated erythrocytes count in urine sediment (number/area)Ordered By: Frank Silva on 07-04-2022 RBC Auto (Urine sed) [#/Area] 3-4 [HPF] 0-4 [facility] Automated leukocytes count i n urine sediment (number/area)Ordered By: Frank Silva on 07-04-2022 WBC Auto (Urine sed) [#/Area] 0-1 [HPF] 0-4 [facility] Basophils Auto (Bld) [#/Vol] Ordered By: Frank Silva on 07-04-2022 Basophils (Bld) [#/Vol] 0.0 10*3/uL 0.0-0.2 [facility] Basophils/100 WBC Auto (Bld) Ordered By: Frank Silva on 07-04-2022 Basophils/100 WBC (Bld) 0.4 % . [facility] Bilirubin Test strip Ql (U)O rdered By: Frank Silva on 07-04-2022 Bilirubin Ql (U) Negative Negative [facility] Color Auto (U)Ordered By: Godfrey Silva on 07-04-2022 Color (U) Yellow Yellow [facility] Creatinine and Glomerular fi ltration rate.predicted panel (S/P/Bld)Ordered By: Frank Silva on 07-04-2022 Creatinine [Mass/Vol] 0.80 mg/dL 0.44-1.03 [facility] Direct bilirubin measurement Ordered By: Frank Silva on 07-04-2022 Bilirubin.direct [Mass/Vol] mg/dL 0.0-0.4 [facility] Eosinophils Auto (Bld) [#/Vo l]Ordered By: Frank Silva on 07-04-2022 Eosinophils (Bld) [#/Vol] 0.1 10*3/uL 0.0-0.45 [facility] Eosinophils/100 WBC Auto (Bl d)Ordered By: Frank Silva on 07-04-2022 Eosinophils/100 WBC (Bld) 1.2 % . [facility] Erythrocyte distribution wid th Auto (RBC) [Ratio]Ordered By: Frank Silva on 07-04-2022 Erythrocyte distribution width (RBC) [Ratio] 14.9 % 11.9-15.3 [facility] Estimated glomerular filtrat ion rate (GFR) non- AmericanOrdered By: Frank Silva on 07-04-2022 GFR/1.73 sq M.predicted among non-blacks MDRD (S/P/Bld) [Vol rate/Area] > 60 mL/Min [facility] Globulin Calc (S) [Mass/Vol] Ordered By: Frank Silva on 07-04-2022 Globulin (S) [Mass/Vol] 3.3 g/dL [facility] HCG ( test) IA.rapi d Ql (U)Ordered By: Frank Silva on 07-04-2022 HCG ( test) Ql (U) Negative [facility] Hematocrit Auto (Bld) [Volum e fraction]Ordered By: Frank Silva on 07-04-2022 Hematocrit (Bld) [Volume fraction] 32.0 % 34.0-46.4 [facility] Hemoglobin [Mass/volume] in BloodOrdered By: Frank Silva on 07-04-2022 Hemoglobin (Bld) [Mass/Vol] 9.7 g/dL 11.8-15.4 [facility] Ketones Auto test strip (U) [Mass/Vol]Ordered By: Frank Silva on 07-04-2022 Ketones (U) [Mass/Vol] Trace Negative [facility] - Chemistry and C hemistry - challengeOrdered By: Frank Silva on 07-04-2022 Lipase [Catalytic activity/Vol] 43.0 U/L 22-51 [facility] - CoagulationOrde red By: Frank Silva on 07-04-2022 PT Coag (PPP) [Time] 13.3 s 9.0-12.9 [facility] - Hematology and Cell countsOrdered By: Frank Silva on 07-04-2022 Nucleated RBC/100 WBC (Bld) [Ratio] 0.1 % 0-0.5 [facility] - UrinalysisOrder ed By: Frank Silva on 07-04-2022 Hyaline casts LM Ql (Urine sed) 0-8 [LPF] 0-8 [facility] Leukocytes [#/volume] in Blo od by Automated countOrdered By: Frank Silva on 07-04-2022 WBC (Bld) [#/Vol] 8.7 10*3/uL 4.5-11.0 [facility] Lymphocytes Auto (Bld) [#/Vo l]Ordered By: Frank Silva on 07-04-2022 Lymphocytes (Bld) [#/Vol] 1.2 10*3/uL 1.00-4.8 [facility] Lymphocytes/100 WBC Auto (Bl d)Ordered By: Frank Silva on 07-04-2022 Lymphocytes/100 WBC (Bld) 14.2 % . [facility] MCH Auto (RBC) [Entitic mass ]Ordered By: Frank Silva on 07-04-2022 MCH (RBC) [Entitic mass] 21.4 pg 24.7-34.3 [facility] MCHC Auto (RBC) [Mass/Vol]Or dered By: Frank Silva on 07-04-2022 MCHC (RBC) [Mass/Vol] 30.4 g/dL 32.0-35.0 [facility] MCV Auto (RBC) [Entitic vol] Ordered By: Frank Silva on 07-04-2022 MCV (RBC) [Entitic vol] 70.4 fL 80-100 [facility] Monocytes Auto (Bld) [#/Vol] Ordered By: Frank Silva on 07-04-2022 Monocytes (Bld) [#/Vol] 0.4 10*3/uL 0.0-0.8 [facility] Monocytes/100 WBC Auto (Bld) Ordered By: Frank Silva on 07-04-2022 Monocytes/100 WBC (Bld) 5.0 % . [facility] Neutrophils Auto (Bld) [#/Vo l]Ordered By: Frank Silva on 07-04-2022 Neutrophils (Bld) [#/Vol] 6.9 10*3/uL 1.8-7.7 [facility] Neutrophils/100 WBC Auto (Bl d)Ordered By: Frank Silva on 07-04-2022 Neutrophils/100 WBC (Bld) 79.2 % . [facility] Nitrite Test strip Ql (U)Ord ered By: Frank Silva on 07-04-2022 Nitrite Ql (U) Negative Negative [facility] No Panel InformationOrdered By: Frank Silva on 07-04-2022 Estimated GFR () > 60 mL/Min [facility] Comment on above: GFR estimated refere nce range: According to KDOQI guidelines, <60 ml/min/1.73m2 is sufficient to diagnose a patient with chronic kidney disease. Pharmacy Creatinine Clearance (Chem 98.82 [facility] Platelet mean volume Auto (B ld) [Entitic vol]Ordered By: Frank Silva on 07-04-2022 Platelet mean volume (Bld) [Entitic vol] 9.5 fL 6.3-10.7 [facility] Platelet poor plasma interna tional normalized ratio (INR) by coagulation assay (relatOrdered By: Frank Silva on 07-04-2022 INR Coag (PPP) [Relative time] 1.2 {INR} [facility] Comment on above: INR Therapeutic Rang [...] 07-04-2022 Platelets (Bld) [#/Vol] 258 10*3/uL 150-450 [facility] Protein Auto test strip (U) [Mass/Vol]Ordered By: Frank Silva on 07-04-2022 Protein (U) [Mass/Vol] Negative Negative [facility] Protein [Mass/volume] in Ser um or PlasmaOrdered By: Frank Silva on 07-04-2022 Protein [Mass/Vol] 6.9 g/dL 6.1-7.9 [facility] RBC Auto (Bld) [#/Vol]Ordere d By: Frank Silva on 07-04-2022 RBC (Bld) [#/Vol] 4.54 10*6/uL 3.60-5.00 [facility] Serum or plasma alanine keene otransferase measurement without P-5'-P (enzymatic activiOrdered By: Frank Silva on 07-04-2022 ALT No additional P-5'-P [Catalytic activity/Vol] 15 U/L 10-60 [facility] Serum or plasma albumin/glob ulin mass ratioOrdered By: Frank Silva on 07-04-2022 Albumin/Globulin [Mass ratio] 1.1 {ratio} [facility] Serum or plasma alkaline jared sphatase measurement (enzymatic activity/volume)Ordered By: Frank Silva on 07-04-2022 ALP [Catalytic activity/Vol] 50 U/L 32-92 [facility] Serum or plasma anion gap de terminationOrdered By: Frank Silva on 07-04-2022 Anion gap [Moles/Vol] 11.7 mmol/L 6.0-15.0 [facility] Serum or plasma aspartate am inotransferase measurement (enzymatic activity/volume)Ordered By: Frank Silva on 07-04-2022 AST [Catalytic activity/Vol] 14 U/L 10-42 [facility] Serum or plasma calcium marychuy urement (mass/volume)Ordered By: Frank Silva on 07-04-2022 Calcium [Mass/Vol] 8.9 mg/dL 8.2-10.2 [facility] Serum or plasma chloride nemo surement (moles/volume)Ordered By: Frank Silva on 07-04-2022 Chloride [Moles/Vol] 105 mmol/L 95-114 [facility] Serum or plasma glucose marychuy urement (mass/volume)Ordered By: Frank Silva on 07-04-2022 Glucose [Mass/Vol] 97 mg/dL 70-100 [facility] Comment on above: ADA recommended refe rence rangeRandom Glucose Reference Range is dependent on time and content of last meal. Glucose of more than 200 mg/dL in a nonstressed, ambulatory subject supports the diagnosis of Diabetes Mellitus. Serum or plasma non-glucuron idated bilirubin measurement (mass/volume)Ordered By: Frank Silva on 07-04-2022 Bilirubin.indirect [Mass/Vol] TNP [facility] Comment on above: Test not performed Serum or plasma potassium me asurement (moles/volume)Ordered By: Frank Silva on 07-04-2022 Potassium [Moles/Vol] 3.7 mmol/L 3.5-5.1 [facility] Serum or plasma sodium measu rement (moles/volume)Ordered By: Frank Silva on 07-04-2022 Sodium [Moles/Vol] 136 mmol/L 136-146 [facility] Serum or plasma total biliru bin measurement (mass/volume)Ordered By: Frank Silva on 07-04-2022 Bilirubin [Mass/Vol] 0.5 mg/dL 0.3-1.2 [facility] Serum or plasma total carbon dioxide measurement (moles/volume)Ordered By: Frank Silva on 07-04-2022 CO2 [Moles/Vol] 23.0 mmol/L 22.0-30.0 [facility] Serum or plasma urea nitroge n measurement (mass/volume)Ordered By: Frank Silva on 07-04-2022 Urea nitrogen [Mass/Vol] 6 mg/dL 9-23 [facility] Specific gravity Auto test s trip (U) [Rel density]Ordered By: Frank Silva on 07-04-2022 Specific gravity (U) [Rel density] 1.010 1.001-1.03 0 [facility] Squamous epithelial cells de tection in urine sediment by light microscopyOrdered By: Frank Silva on 07-04-2022 Epithelial cells.squamous LM Ql (Urine sed) 0-1 [HPF] 0-2 [facility] Urine bacteria detection by automated methodOrdered By: Frank Silva on 07-04-2022 Bacteria Auto Ql (U) None seen None Seen [facility] Urine clarity by refractomet ry automatedOrdered By: Frank Silva on 07-04-2022 Clarity Refractometry automated (U) Clear Clear [facility] Urine glucose measurement by automated test strip (mass/volume)Ordered By: Frank Silva on 07-04-2022 Glucose Auto test strip (U) [Mass/Vol] Normal mg/dL Normal [facility] Urine hemoglobin detection b y automated test stripOrdered By: Frank Silva on 07-04-2022 Hemoglobin Auto test strip Ql (U) Trace Negative [facility] Urine leukocyte esterase det ection by automated test stripOrdered By: Frank Silva on 07-04-2022 Leukocyte esterase Auto test strip Ql (U) 1+ Negative [facility] Urobilinogen Auto test strip (U) [Mass/Vol]Ordered By: Frank Silva on 07-04-2022 Urobilinogen (U) [Mass/Vol] Normal mg/dL Normal [facility] pH Auto test strip (U)Ordere d By: Frank Silva on 07-04-2022 pH (U) 6.5 [pH] 5.0-9.0 [facility] Activated partial thrombopla stin time (aPTT) in platelet poor plasma by coagulation aOrdered By: Marvin Serrano on 06-01-2022 aPTT Coag (PPP) [Time] 30.4 s 25.1-36.5 [facility] Basophils Auto (Bld) [#/Vol] Ordered By: Marvin Serrano on 06-01-2022 Basophils (Bld) [#/Vol] 0.1 10*3/uL 0.0-0.2 [facility] Basophils/100 WBC Auto (Bld) Ordered By: Marvin Serrano on 06-01-2022 Basophils/100 WBC (Bld) 1.1 % . [facility] Bilirubin Test strip Ql (U)O rdered By: Marvin Serrano on 06-01-2022 Bilirubin Ql (U) Negative Negative [facility] Blood hemoglobin measurement (mass/volume)Ordered By: Marvin Serrano on 06-01-2022 Hemoglobin (Bld) [Mass/Vol] 10.1 g/dL 11.8-15.4 [facility] Blood leukocytes automated c ount (number/volume)Ordered By: Marvin Serrano on 06-01-2022 WBC (Bld) [#/Vol] 7.6 10*3/uL 4.5-11.0 [facility] Body fluid albumin measureme nt (mass/volume)Ordered By: Marvin Serrano on 06-01-2022 Albumin (Body fld) [Mass/Vol] 3.7 g/dL 3.2-5.5 [facility] Color Auto (U)Ordered By: Dane Serrano on 06-01-2022 Color (U) Yellow Yellow [facility] Creatinine and Glomerular fi ltration rate.predicted panel (S/P/Bld)Ordered By: Marvin Serrano on 06-01-2022 Creatinine [Mass/Vol] 0.82 mg/dL 0.44-1.03 [facility] Eosinophils Auto (Bld) [#/Vo l]Ordered By: Marvin Serrano on 09-15-2022 Eosinophils (Bld) [#/Vol] 0.2 10*3/uL 0.0-0.45 [facility] Eosinophils/100 WBC Auto (Bl d)Ordered By: Marvin Serrano on 06-01-2022 Eosinophils/100 WBC (Bld) 2.4 % . [facility] Erythrocyte distribution wid th Auto (RBC) [Ratio]Ordered By: Marvin Serrano on 06-01-2022 Erythrocyte distribution width (RBC) [Ratio] 14.3 % 11.9-15.3 [facility] Estimated glomerular filtrat ion rate (GFR) non- AmericanOrdered By: Marvin Serrano on 06-01-2022 GFR/1.73 sq M.predicted among non-blacks MDRD (S/P/Bld) [Vol rate/Area] > 60 mL/Min [facility] Globulin Calc (S) [Mass/Vol] Ordered By: Marvin Serrano on 06-01-2022 Globulin (S) [Mass/Vol] 3.4 g/dL [facility] HCG ( test) IA.rapi d Ql (U)Ordered By: Marvin Serrano on 06-01-2022 HCG ( test) Ql (U) Negative [facility] Hematocrit Auto (Bld) [Volum e fraction]Ordered By: Marvin Serrano on 06-01-2022 Hematocrit (Bld) [Volume fraction] 32.2 % 34.0-46.4 [facility] Ketones Auto test strip (U) [Mass/Vol]Ordered By: Marvin Serrano on 06-01-2022 Ketones (U) [Mass/Vol] Negative Negative [facility] - CoagulationOrde red By: Marvin Serrano on 06-01-2022 PT Coag (PPP) [Time] 12.4 s 9.0-12.9 [facility] - Hematology and Cell countsOrdered By: Marvin Serrano on 06-01-2022 Nucleated RBC/100 WBC (Bld) [Ratio] 0.1 % 0-0.5 [facility] Lymphocytes Auto (Bld) [#/Vo l]Ordered By: Marvin Serrano on 06-01-2022 Lymphocytes (Bld) [#/Vol] 2.7 10*3/uL 1.00-4.8 [facility] Lymphocytes/100 WBC Auto (Bl d)Ordered By: Marvin Serrano on 06-01-2022 Lymphocytes/100 WBC (Bld) 35.8 % . [facility] MCH Auto (RBC) [Entitic mass ]Ordered By: Marvin Serrano on 06-01-2022 MCH (RBC) [Entitic mass] 22.0 pg 24.7-34.3 [facility] MCHC Auto (RBC) [Mass/Vol]Or dered By: Marvin Serrano on 06-01-2022 MCHC (RBC) [Mass/Vol] 31.3 g/dL 32.0-35.0 [facility] MCV Auto (RBC) [Entitic vol] Ordered By: Marvin Serrano on 06-01-2022 MCV (RBC) [Entitic vol] 70.4 fL 80-100 [facility] Monocytes Auto (Bld) [#/Vol] Ordered By: Marvin Serrano on 06-01-2022 Monocytes (Bld) [#/Vol] 0.5 10*3/uL 0.0-0.8 [facility] Monocytes/100 WBC Auto (Bld) Ordered By: Marvin Serrano on 06-01-2022 Monocytes/100 WBC (Bld) 7.1 % . [facility] Neutrophils Auto (Bld) [#/Vo l]Ordered By: Marvin Serrano on 06-01-2022 Neutrophils (Bld) [#/Vol] 4.1 10*3/uL 1.8-7.7 [facility] Neutrophils/100 WBC Auto (Bl d)Ordered By: Marvin Serrano on 06-01-2022 Neutrophils/100 WBC (Bld) 53.6 % . [facility] Nitrite Test strip Ql (U)Ord ered By: Marvin Serrano on 06-01-2022 Nitrite Ql (U) Negative Negative [facility] No Panel InformationOrdered By: Marvin Serrano on 06-01-2022 Estimated GFR () > 60 mL/Min [facility] Comment on above: GFR estimated refere nce range: According to KDOQI guidelines, <60 ml/min/1.73m2 is sufficient to diagnose a patient with chronic kidney disease. Pharmacy Creatinine Clearance (Chem 97.22 [facility] Platelet mean volume Auto (B ld) [Entitic vol]Ordered By: Marvin Serrano on 06-01-2022 Platelet mean volume (Bld) [Entitic vol] 9.9 fL 6.3-10.7 [facility] Platelet poor plasma interna tional normalized ratio (INR) by coagulation assay (relatOrdered By: Marvin Serrano on 06-01-2022 INR Coag (PPP) [Relative time] 1.1 {INR} [facility] Comment on above: INR Therapeutic Rang [...] 06-01-2022 Platelets (Bld) [#/Vol] 218 10*3/uL 150-450 [facility] Protein Auto test strip (U) [Mass/Vol]Ordered By: Marvin Serrano on 06-01-2022 Protein (U) [Mass/Vol] Negative Negative [facility] Protein [Mass/volume] in Ser um or PlasmaOrdered By: Marvin Serrano on 06-01-2022 Protein [Mass/Vol] 7.1 g/dL 6.1-7.9 [facility] RBC Auto (Bld) [#/Vol]Ordere d By: Marvin Serrano on 06-01-2022 RBC (Bld) [#/Vol] 4.57 10*6/uL 3.60-5.00 [facility] Serum or plasma alanine keene otransferase measurement without P-5'-P (enzymatic activiOrdered By: Marvin Serrano on 06-01-2022 ALT No additional P-5'-P [Catalytic activity/Vol] 12 U/L 10-60 [facility] Serum or plasma albumin/glob ulin mass ratioOrdered By: Marvin Serrano on 06-01-2022 Albumin/Globulin [Mass ratio] 1.1 {ratio} [facility] Serum or plasma alkaline jared sphatase measurement (enzymatic activity/volume)Ordered By: Marvin Serrano on 06-01-2022 ALP [Catalytic activity/Vol] 46 U/L 32-92 [facility] Serum or plasma anion gap de terminationOrdered By: Marvin Serrano on 06-01-2022 Anion gap [Moles/Vol] 15.3 mmol/L 6.0-15.0 [facility] Serum or plasma aspartate am inotransferase measurement (enzymatic activity/volume)Ordered By: Marvin Serrano on 06-01-2022 AST [Catalytic activity/Vol] 13 U/L 10-42 [facility] Serum or plasma calcium marychuy urement (mass/volume)Ordered By: Marvin Serrano on 06-01-2022 Calcium [Mass/Vol] 9.1 mg/dL 8.2-10.2 [facility] Serum or plasma chloride nemo surement (moles/volume)Ordered By: Marvin Serrano on 06-01-2022 Chloride [Moles/Vol] 103 mmol/L 95-114 [facility] Serum or plasma glucose marychuy urement (mass/volume)Ordered By: Marvin Serrano on 06-01-2022 Glucose [Mass/Vol] 113 mg/dL 70-100 [facility] Comment on above: ADA recommended [...] on 06-01-2022 Potassium [Moles/Vol] 3.0 mmol/L 3.5-5.1 [facility] Serum or plasma sodium measu rement (moles/volume)Ordered By: Marvin Serrano on 06-01-2022 Sodium [Moles/Vol] 137 mmol/L 136-146 [facility] Serum or plasma total biliru bin measurement (mass/volume)Ordered By: Marvin Serrano on 06-01-2022 Bilirubin [Mass/Vol] 0.4 mg/dL 0.3-1.2 [facility] Serum or plasma total carbon dioxide measurement (moles/volume)Ordered By: Marvin Serrano on 06-01-2022 CO2 [Moles/Vol] 21.7 mmol/L 22.0-30.0 [facility] Serum or plasma urea nitroge n measurement (mass/volume)Ordered By: Marvin Serrano on 06-01-2022 Urea nitrogen [Mass/Vol] 11 mg/dL 06-09 [facility] Specific gravity Auto test s trip (U) [Rel density]Ordered By: Marvin Serrano on 06-01-2022 Specific gravity (U) [Rel density] 1.003 1.001-1.03 0 [facility] Urine clarity by refractomet ry automatedOrdered By: Marvin Serrano on 06-01-2022 Clarity Refractometry automated (U) Clear Clear [facility] Urine glucose measurement by automated test strip (mass/volume)Ordered By: Marvin Serrano on 06-01-2022 Glucose Auto test strip (U) [Mass/Vol] Normal mg/dL Normal [facility] Urine hemoglobin detection b y automated test stripOrdered By: Marvin Serrano on 06-01-2022 Hemoglobin Auto test strip Ql (U) Negative Negative [facility] Urine leukocyte esterase det ection by automated test stripOrdered By: Marvin Serrano on 06-01-2022 Leukocyte esterase Auto test strip Ql (U) Negative Negative [facility] Urobilinogen Auto test strip (U) [Mass/Vol]Ordered By: Marvin Serrano on 06-01-2022 Urobilinogen (U) [Mass/Vol] Normal mg/dL Normal [facility] pH Auto test strip (U)Ordere d By: Marvin Serrano on 06-01-2022 pH (U) 7.0 [pH] 5.0-9.0 [facility] Office Visit (Oncology Surge ry)on 04-21-2022 [...] need for her to return to her [employer] Dr. Pendleton for discussion of ongoing [...] visit. Active Problems Problems Abdominal wall mass (9.30) (R22.2) Allergies Medication albuterol Recorded By: Kim Isaac; 03/24/2022 11:45:28 AM Current Meds Medication NameInstructionReason Ondansetron 8 MG Oral Tablet DisintegratingTAKE 1 TABLET Every 8 hoursAbdominal wall (more content not included)... Normal [facility] CT ABD/PELV W CONon 04-19-[address] ABD/PELV W CON EXAMINATION: CT ABD/ [...] Lenny TANNER Date: 2022-04-18 23:01 Normal [facility] ER URINE PROFILEon 2 Bilirubin Ql (U) Negative Normal NEGATIVE [facility] Comment on above: Performed By: #### U MICRO, PREGU, ERUR #### [facility] [address] [place] [address] Dr. Adam Mejía Clarity (U) CLEAR Normal CLEAR [facility] Comment on above: Performed By: #### U MICRO, PREGU, ERUR #### [facility] [address] [address] [address] Adam Mejía Color (U) YELLOW Normal YELLOW [facility] Comment on above: Performed By: #### U MICRO, PREGU, ERUR #### [facility] [address] [place] [address] Dr. Adam CLEMENTS A micrscopic examina tion will be performed if indicated. Normal [facility] Comment on above: Performed By: #### U MICRO, PREGU, ERUR #### [facility] [address] [place] [address] Dr. Adam Mejía Glucose Ql (U) Negative Normal NEGATIVE [facility] Comment on above: Performed By: #### U MICRO, PREGU, ERUR #### [facility] [address] [place] [address] Dr. Adam Mejía Hemoglobin Ql (U) SMALL Abnormal NEGATIVE [facility] Comment on above: Performed By: #### U MICRO, PREGU, ERUR #### [facility] [address] [place] [address] Dr. Adam Mejía Ketones Ql (U) >=80 Abnormal NEGATIVE [facility] Comment on above: Performed By: #### U MICRO, PREGU, ERUR #### [facility] [address] [place] [address] Dr. Adam Mejía LEUKOCYTES Negative Normal NEGATIVE [facility] Comment on above: Performed By: #### U MICRO, PREGU, ERUR #### [facility] [address] [address] [address] Adam Mejía Nitrite Ql (U) Negative Normal NEGATIVE [facility] Comment on above: Performed By: #### U MICRO, PREGU, ERUR #### [facility] [address] [address] [address] Adam Mejía pH (U) 6.5 [pH] Normal 5-9 [facility] Comment on above: Performed By: #### U MICRO, PREGU, ERUR #### [facility] [address] [place] [address] Dr. Adam Mejía SPEC GRAVITY 1.015 Normal 1.005-<=1. 025 [facility] Comment on above: Performed By: #### U MICRO, PREGU, ERUR #### [facility] [address] [place] [address] Dr. Adam Mejía UA PROTEIN Negative Normal NEGATIVE/ TRACE [facility] Comment on above: Performed By: #### U MICRO, PREGU, ERUR #### [facility] [address] [place] [address] Dr. Adam Mejía UR MICRO IND INDICATED Normal [facility] Comment on above: Performed By: #### U MICRO, PREGU, ERUR #### [facility] [address] [place] [address] Dr. Adam Mejía Urobilinogen Qn (U) 0.2 {Brinda'U}/dL Normal 0.2 - 1. 0 [facility] Comment on above: Performed By: #### U MICRO, PREGU, ERUR #### [facility] [address] [place] [address] Dr. Adam Mejía URon 04-18-2022 , QUAL Negative Normal NEGATIVE [facility] Comment on above: Performed By: #### U MICRO, PREGU, ERUR #### [facility] [address] [place] [address] Dr. Adam Mejía URINE MICROSCOPIC ONLYon BACTERIA TRACE Abnormal NONE SEEN [facility] Comment on above: Performed By: #### U MICRO, PREGU, ERUR #### [facility] [address] [place] [address] Dr. Adam Mejía Bacteria identified Cx Nom (U) NOT INDICATED Normal [facility] Comment on above: Performed By: #### U MICRO, PREGU, ERUR #### [facility] [address] [place] [address] Dr. Adam Mejía CAST NONE SEEN Normal NONE SEEN [facility] Comment on above: Performed By: #### U MICRO, PREGU, ERUR #### [facility] [address] [place] [address] Dr. Adam Mejía Crystals LM Nom (Urine sed) NONE SEEN Normal NONE SEEN [facility] Comment on above: Performed By: #### U MICRO, PREGU, ERUR #### [facility] [address] [address] [address] Adam Mejía Epithelial cells LM Ql (Urine sed) FEW Abnormal NONE SEEN /RARE [facility] Comment on above: Performed By: #### U MICRO, PREGU, ERUR #### [facility] [address] [address] [address] Adam Mejía MUCOUS NONE SEEN Normal NONE SEEN [facility] Comment on above: Performed By: #### U MICRO, PREGU, ERUR #### [facility] [address] [address] [address] Adam Mejía RBC 0-2 Normal 0-2 [facility] Comment on above: Performed By: #### U MICRO, PREGU, ERUR #### [facility] [address] [address] [address] Adam Mejía WBC 0-2 Abnormal NONE SEEN [facility] Comment on above: Performed By: #### U MICRO, PREGU, ERUR #### [facility] [address] [address] [address] Adam Mejía Body fluid albumin measureme nt (mass/volume)Ordered By: Yudelka Lopez on 04-14-2022 Albumin (Body fld) [Mass/Vol] 3.9 g/dL 3.2-5.5 [facility] Creatinine and Glomerular fi ltration rate.predicted panel (S/P/Bld)Ordered By: Yudelka Lopez on 04-14-2022 Creatinine [Mass/Vol] 0.77 mg/dL 0.44-1.03 [facility] Estimated glomerular filtrat ion rate (GFR) non- AmericanOrdered By: Yudelka Lopez on 04-14-2022 GFR/1.73 sq M.predicted among non-blacks MDRD (S/P/Bld) [Vol rate/Area] > 60 mL/Min [facility] Globulin Calc (S) [Mass/Vol] Ordered By: Yudelka Lopez on 04-14-2022 Globulin (S) [Mass/Vol] 3.0 g/dL [facility] No Panel InformationOrdered By: Yudelka Lopez on 04-14-2022 Estimated GFR () > 60 mL/Min [facility] Comment on above: GFR estimated refere nce range: According to KDOQI guidelines, <60 ml/min/1.73m2 is sufficient to diagnose a patient with chronic kidney disease. Pharmacy Creatinine Clearance (Chem N/A [facility] Protein [Mass/volume] in Ser um or PlasmaOrdered By: Yudelka Lopez on 04-14-2022 Protein [Mass/Vol] 6.9 g/dL 6.1-7.9 [facility] Serum or plasma alanine keene otransferase measurement without P-5'-P (enzymatic activiOrdered By: Yudelka Lopez on 04-14-2022 ALT No additional P-5'-P [Catalytic activity/Vol] 13 U/L 10-60 [facility] Serum or plasma albumin/glob ulin mass ratioOrdered By: Yudelka Lopez on 04-14-2022 Albumin/Globulin [Mass ratio] 1.3 {ratio} [facility] Serum or plasma alkaline jared sphatase measurement (enzymatic activity/volume)Ordered By: Yudelka Lopez on 04-14-2022 ALP [Catalytic activity/Vol] 44 U/L 32-92 [facility] Serum or plasma aspartate am inotransferase measurement (enzymatic activity/volume)Ordered By: Yudelka Lopez on 04-14-2022 AST [Catalytic activity/Vol] 14 U/L 10-42 [facility] Serum or plasma calcium marychuy urement (mass/volume)Ordered By: Yudelka Lopez on 04-14-2022 Calcium [Mass/Vol] 9.5 mg/dL 8.2-10.2 [facility] Serum or plasma chloride nemo surement (moles/volume)Ordered By: Yudelka Lopez on 04-14-2022 Chloride [Moles/Vol] 104 mmol/L 95-114 [facility] Serum or plasma glucose marychuy urement (mass/volume)Ordered By: Yudelka Lopez on 04-14-2022 Glucose [Mass/Vol] 85 mg/dL 70-100 [facility] Comment on above: ADA recommended [...] on 04-14-2022 Potassium [Moles/Vol] 4.2 mmol/L 3.5-5.1 [facility] Serum or plasma sodium measu rement (moles/volume)Ordered By: Yudelka Lopez on 04-14-2022 Sodium [Moles/Vol] 136 mmol/L 136-146 [facility] Serum or plasma total biliru bin measurement (mass/volume)Ordered By: Yudelka Lopez on 04-14-2022 Bilirubin [Mass/Vol] 0.2 mg/dL 0.3-1.2 [facility] Serum or plasma total carbon dioxide measurement (moles/volume)Ordered By: Yudelka Lopez on 04-14-2022 CO2 [Moles/Vol] 24.5 mmol/L 22.0-30.0 [facility] Serum or plasma urea nitroge n measurement (mass/volume)Ordered By: Yudelka Lopez on 04-14-2022 Urea nitrogen [Mass/Vol] 6 mg/dL 9-23 [facility] AMYLASEon 04-11-2022 Amylase [Catalytic activity/Vol] 54 U/L Normal 25-115 [facility] Comment on above: Performed By: #### A MY, CMP, LIPA #### [facility] [address] [place] [address] Dr. Adam Mjeía CBC AUTO DIFFon 04-11-2022 BASO # 0.0 103/ul Normal 0.0-0.1 [facility] Comment on above: Performed By: #### C BC #### [facility] [address] [place] [address] Dr. Adam Mejía Basophils/100 WBC (Bld) 0.2 % Normal 0.2-2.0 [facility] Comment on above: Performed By: #### C BC #### [facility] [address] [place] [address] Dr. Adam Mejía EO # 0.1 103/ul Normal 0.0-0.7 [facility] Comment on above: Performed By: #### C BC #### [facility] [address] [place] [address] Dr. Adam Mejía Eosinophils/100 WBC (Bld) 0.6 % Critically low 0.9-7.0 [facility] Comment on above: Performed By: #### C BC #### [facility] [address] [place] [address] Dr. Adam Mejía Erythrocyte distribution width (RBC) [Ratio] 13.9 % Normal 11.0-15.0 [facility] Comment on above: Performed By: #### C BC #### [facility] [address] [place] [address] Dr. Adam Mejía Hematocrit (Bld) [Volume fraction] 31.4 % Critically low 36.0-48.0 [facility] Comment on above: Performed By: #### C BC #### [facility] [address] [place] [address] Dr. Adam Meíja Hemoglobin (Bld) [Mass/Vol] 9.8 g/dL Critically low 12.0-16.0 [facility] Comment on above: Performed By: #### C BC #### [facility] [address] [place] [address] Dr. Adam Mejía IG # 0.03 10e3/ul Normal 0.00-0.03 [facility] Comment on above: Performed By: #### C BC #### [facility] [address] [place] [address] Dr. Adam Mejía IG % 0.3 % Normal 0.0-0.5 [facility] Comment on above: Performed By: #### C BC #### [facility] [address] [place] [address] Dr. Adam Mejía LYMPH # 1.1 103/ul Critically low 1.2-3.8 [facility] Comment on above: Performed By: #### C BC #### [facility] [address] [place] [address] Dr. Adam Mejía Lymphocytes/100 WBC (Bld) 9.3 % Critically low 20.5-60.0 [facility] Comment on above: Performed By: #### C BC #### [facility] [address] [place] [address] Dr. Adam Mejía MANUAL DIFF REQ NO Normal [facility] Comment on above: Performed By: #### C BC #### [facility] [address] [place] [address] Dr. Adam Mejía MCH (RBC) [Entitic mass] 22.5 pg Critically low 26.7-34.0 [facility] Comment on above: Performed By: #### C BC #### [facility] [address] [place] [address] Dr. Adam Mejía MCHC (RBC) [Mass/Vol] 31.2 g/dL Normal 29.9-35.2 [facility] Comment on above: Performed By: #### C BC #### [facility] [address] [place] [address] Dr. Adam Mejía MCV (RBC) [Entitic vol] 72.0 fL Critically low 81.0-99.0 [facility] Comment on above: Performed By: #### C BC #### [facility] [address] [place] [address] Dr. Adam Mejía MONO # 0.6 103/ul Normal 0.3-0.8 [facility] Comment on above: Performed By: #### C BC #### [facility] [address] [place] [address] Dr. Adam Mejía Monocytes/100 WBC (Bld) 4.6 % Normal 1.7-12.0 [facility] Comment on above: Performed By: #### C BC #### [facility] [address] [place] [address] Dr. Adam Mejía NEUT # 10.2 103/ul Critically high 1.4-6.5 [facility] Comment on above: Performed By: #### C BC #### [facility] [address] [place] [address] Dr. Adam Mejía Neutrophils/100 WBC (Bld) 85.0 % Critically high 43.0-75.0 [facility] Comment on above: Performed By: #### C BC #### [facility] [address] [address] [address] Adam Mejía Platelet mean volume (Bld) [Entitic vol] 12.1 fL Normal 9.5-13.5 [facility] Comment on above: Performed By: #### C BC #### [facility] [address] [address] [address] Adam Mejía PLT 270 103/ul Normal 150-450 [facility] Comment on above: Performed By: #### C BC #### [facility] [address] [address] [address] Adam Mejía RBC 4.36 106/ul Normal 4.20-5.40 [facility] Comment on above: Performed By: #### C BC #### [facility] [address] [place] [address] Dr. Adam Mejía WBC 12.0 103/ul Critically high 4.0-11.0 [facility] Comment on above: Performed By: #### C BC #### [facility] [address] [place] [address] Dr[address]ía [address] ABD/PELV W CONon [...] NADIA MORROW Date: 2022-04-11 07:25 Normal [facility] LIPASEon 04-11-2022 Lipase [Catalytic activity/Vol] 152.0 U/L Normal 73.0-393.0 [facility] Comment on above: Performed By: #### A MY, CMP, LIPA #### [facility] [address] [address] [address] Adam Mejía PREG HCG QUALon 04-11-2022 , QUAL Negative Normal NEGATIVE [facility] Comment on above: Performed By: #### U MICRO, PREGU, ERUR #### [facility] [address] [address] [address] Adam Mejía PROF 14(COMP METB)on 022 Albumin [Mass/Vol] 3.8 g/dL Normal 3.4-5.0 [facility] Comment on above: Performed By: #### U MICRO, PREGU, ERUR #### [facility] [address] [address] [address] Adam Mejía Albumin/Globulin [Mass ratio] 0.9 {ratio} Normal [facility] Comment on above: Performed By: #### U MICRO, PREGU, ERUR #### [facility] [address] [address] [address] Adam Mejía ALP [Catalytic activity/Vol] 51 U/L Normal 46-116 [facility] Comment on above: Performed By: #### U MICRO, PREGU, ERUR #### [facility] [address] [address] [address] Adam Mejía ALT [Catalytic activity/Vol] 11 U/L Critically low 14-59 [facility] Comment on above: Performed By: #### U MICRO, PREGU, ERUR #### [facility] [address] [address] [address] Adam Mejía Anion gap [Moles/Vol] 11.9 mmol/L Normal [facility] Comment on above: Performed By: #### U MICRO, PREGU, ERUR #### [facility] [address] [address] [address] Adam Mejía AST [Catalytic activity/Vol] 14 U/L Critically low 15-37 [facility] Comment on above: Performed By: #### U MICRO, PREGU, ERUR #### [facility] [address] [address] [address] Adam Mejía Bilirubin [Mass/Vol] 0.4 mg/dL Normal 0.2-1.0 [facility] Comment on above: Performed By: #### U MICRO, PREGU, ERUR #### [facility] [address] [place] [address] Dr. Adam Mejía Calcium [Mass/Vol] 9.4 mg/dL Normal 8.5-10.1 [facility] Comment on above: Performed By: #### U MICRO, PREGU, ERUR #### [facility] [address] [address] [address] Adam Mejía Chloride [Moles/Vol] 104 mmol/L Normal 98-107 [facility] Comment on above: Performed By: #### U MICRO, PREGU, ERUR #### [facility] [address] [address] [address] Adam Mejía CO2 [Moles/Vol] 26.1 mmol/L Normal 21.0-32.0 [facility] Comment on above: Performed By: #### U MICRO, PREGU, ERUR #### [facility] [address] [address] [address] Adam Mejía Creatinine [Mass/Vol] 0.78 mg/dL Normal 0.55-1.02 [facility] Comment on above: Performed By: #### U MICRO, PREGU, ERUR #### [facility] [address] [address] [address] Adam Mejía EGFR-AF CYMRO >60 Normal >=60 [facility] Comment on above: Performed By: #### U MICRO, PREGU, ERUR #### [facility] [address] [address] [address] Adam Mejía EGFR-NON AF CYMRO >60 Normal >=60 [facility] Comment on above: Performed By: #### U MICRO, PREGU, ERUR #### [facility] [address] [address] [address] Adam Mejía Globulin (S) [Mass/Vol] 4.1 g/dL Normal [facility] Comment on above: Performed By: #### U MICRO, PREGU, ERUR #### [facility] [address] [place] [address] Dr. Adam Mejía Glucose [Mass/Vol] 111 mg/dL Critically high 74-106 [facility] Comment on above: Performed By: #### U MICRO, PREGU, ERUR #### [facility] [address] [address] [address] Adam Mejía Potassium [Moles/Vol] 4.0 mmol/L Normal 3.5-5.1 [facility] Comment on above: Performed By: #### U MICRO, PREGU, ERUR #### [facility] [address] [address] [address] Adam Mejía Protein [Mass/Vol] 7.9 g/dL Normal 6.4-8.2 [facility] Comment on above: Performed By: #### U MICRO, PREGU, ERUR #### [facility] [address] [address] [address] Adam Mejía Sodium [Moles/Vol] 138 mmol/L Normal 136-145 [facility] Comment on above: Performed By: #### U MICRO, PREGU, ERUR #### [facility] [address] [address] [address] Adam Mejía Urea nitrogen [Mass/Vol] 10.0 mg/dL Normal 7.0-18.0 [facility] Comment on above: Performed By: #### U MICRO, PREGU, ERUR #### [facility] [address] [place], [place] [address] Dr. Adam Mejía Urea nitrogen/Creatinine [Mass ratio] 12.8 mg/mg Normal [facility] Comment on above: Performed By: #### U MICRO, PREGU, ERUR #### [facility] [address] [place], [place] [address] Dr. Adam Mejía XR ABD FLAT UP_PA [...] by: NADIA MORROW Date: 2022-04-11 06:26 Normal [facility] Blood Pressure Cuff Sizeon 0 04-07-2022 Tobacco use status [facility]PHS b) No [facility] Work Phone: Blood Pressure Cuff Size Adult [facility] Work Phone: Office Visit (Oncology Surge ry)on 04-07-2022 Follow-up visit Diagnoses/Problems Assessed Abdominal wall mass (111.30) (R22.2) Orders Abdominal wall mass Continue: Ondansetron [...] return. The patient will return to her [employer] Dr. Pendleton for discussion of ongoing [...] 325 (65 (more content not included)... Normal [facility] Activated partial thrombopla stin time (aPTT) in platelet poor plasma by coagulation aOrdered By: Frank Silva on 04-04-2022 aPTT Coag (PPP) [Time] 29.4 s 25.1-36.5 [facility] Albumin [Mass/volume] in Ser um or PlasmaOrdered By: Frank Silva on 04-04-2022 Albumin [Mass/Vol] 3.6 g/dL 3.2-5.5 [facility] Automated erythrocytes count in urine sediment (number/area)Ordered By: Janette Dior on 04-04-2022 RBC Auto (Urine sed) [#/Area] 20-49 [HPF] 0-4 [facility] Automated leukocytes count i n urine sediment (number/area)Ordered By: Janette Dior on 04-04-2022 WBC Auto (Urine sed) [#/Area] 10-19 [HPF] 0-4 [facility] Basophils Auto (Bld) [#/Vol] Ordered By: Frank Silva on 04-04-2022 Basophils (Bld) [#/Vol] 0.0 10*3/uL 0.0-0.2 [facility] Basophils/100 WBC Auto (Bld) Ordered By: Frank Silva on 04-04-2022 Basophils/100 WBC (Bld) 0.4 % . [facility] Bilirubin Test strip Ql (U)O rdered By: Janette Dior on 04-04-2022 Bilirubin Ql (U) Negative Negative [facility] Blood hemoglobin measurement (mass/volume)Ordered By: Frank Silva on 04-04-2022 Hemoglobin (Bld) [Mass/Vol] 10.0 g/dL 11.8-15.4 [facility] Blood leukocytes automated c ount (number/volume)Ordered By: Frank Silva on 04-04-2022 WBC (Bld) [#/Vol] 9.8 10*3/uL 4.5-11.0 [facility] Color Auto (U)Ordered By: Merlin Dior on 04-04-2022 Color (U) Yellow Yellow [facility] Creatinine and Glomerular fi ltration rate.predicted panel (S/P/Bld)Ordered By: Frank Silva on 04-04-2022 Creatinine [Mass/Vol] 0.93 mg/dL 0.44-1.03 [facility] Eosinophils Auto (Bld) [#/Vo l]Ordered By: Frank Silva on 04-04-2022 Eosinophils (Bld) [#/Vol] 0.0 10*3/uL 0.0-0.45 [facility] Eosinophils/100 WBC Auto (Bl d)Ordered By: Frank Silva on 04-04-2022 Eosinophils/100 WBC (Bld) 0.3 % . [facility] Erythrocyte distribution wid th Auto (RBC) [Ratio]Ordered By: Frank Silva on 04-04-2022 Erythrocyte distribution width (RBC) [Ratio] 14.1 % 11.9-15.3 [facility] Estimated glomerular filtrat ion rate (GFR) non- AmericanOrdered By: Frank Silva on 04-04-2022 GFR/1.73 sq M.predicted among non-blacks MDRD (S/P/Bld) [Vol rate/Area] > 60 mL/Min [facility] Globulin Calc (S) [Mass/Vol] Ordered By: Frank Silva on 04-04-2022 Globulin (S) [Mass/Vol] 3.1 g/dL [facility] HCG ( test) IA.rapi d Ql (U)Ordered By: Janette Dior on 04-04-2022 HCG ( test) Ql (U) Negative [facility] HCG ( test) IA.rapi d Ql (U)Ordered By: Frank Silva on 04-04-2022 HCG ( test) Ql (U) Negative [facility] Hematocrit Auto (Bld) [Volum e fraction]Ordered By: Frank Silva on 04-04-2022 Hematocrit (Bld) [Volume fraction] 31.9 % 34.0-46.4 [facility] Ketones Auto test strip (U) [Mass/Vol]Ordered By: Janette Dior on 04-04-2022 Ketones (U) [Mass/Vol] 4+ Negative [facility] - Chemistry and C hemistry - challengeOrdered By: Frank Silva on 04-04-2022 Natriuretic peptide B (Bld) [Mass/Vol] 44.0 pg/mL 5-100 [facility] Laboratory - CoagulationOrde red By: Frank Silva on 04-04-2022 PT Coag (PPP) [Time] 14.0 s 9.0-12.9 [facility] - Hematology and Cell countsOrdered By: Frank Silva on 04-04-2022 Nucleated RBC/100 WBC (Bld) [Ratio] 0.0 % 0-0.5 [facility] Laboratory - UrinalysisOrder ed By: Janette Dior on 04-04-2022 Hyaline casts LM Ql (Urine sed) 0-8 [LPF] 0-8 [facility] Lymphocytes Auto (Bld) [#/Vo l]Ordered By: Frank Silva on 04-04-2022 Lymphocytes (Bld) [#/Vol] 2.1 10*3/uL 1.00-4.8 [facility] Lymphocytes/100 WBC Auto (Bl d)Ordered By: Frank Silva on 04-04-2022 Lymphocytes/100 WBC (Bld) 21.5 % . [facility] MCH Auto (RBC) [Entitic mass ]Ordered By: Frank Silva on 04-04-2022 MCH (RBC) [Entitic mass] 22.2 pg 24.7-34.3 [facility] MCHC Auto (RBC) [Mass/Vol]Or dered By: Frank Silva on 04-04-2022 MCHC (RBC) [Mass/Vol] 31.2 g/dL 32.0-35.0 [facility] MCV Auto (RBC) [Entitic vol] Ordered By: Frank Silva on 04-04-2022 MCV (RBC) [Entitic vol] 71.2 fL 80-100 [facility] Monocytes Auto (Bld) [#/Vol] Ordered By: Frank Silva on 04-04-2022 Monocytes (Bld) [#/Vol] 0.7 10*3/uL 0.0-0.8 [facility] Monocytes/100 WBC Auto (Bld) Ordered By: Frank Silva on 04-04-2022 Monocytes/100 WBC (Bld) 6.9 % . [facility] Neutrophils Auto (Bld) [#/Vo l]Ordered By: Frank Silva on 04-04-2022 Neutrophils (Bld) [#/Vol] 7.0 10*3/uL 1.8-7.7 [facility] Neutrophils/100 WBC Auto (Bl d)Ordered By: Frank Silva on 04-04-2022 Neutrophils/100 WBC (Bld) 70.9 % . [facility] Nitrite Test strip Ql (U)Ord ered By: Janette Dior on 04-04-2022 Nitrite Ql (U) Negative Negative [facility] No Panel InformationOrdered By: Frank Silva on 04-04-2022 Estimated GFR () > 60 mL/Min [facility] Comment on above: GFR estimated refere nce range: According to KDOQI guidelines, <60 ml/min/1.73m2 is sufficient to diagnose a patient with chronic kidney disease. Pharmacy Creatinine Clearance (Chem 84.97 [facility] Platelet mean volume Auto (B ld) [Entitic vol]Ordered By: Frank Silva on 04-04-2022 Platelet mean volume (Bld) [Entitic vol] 9.6 fL 6.3-10.7 [facility] Platelet poor plasma interna tional normalized ratio (INR) by coagulation assay (relatOrdered By: Frank Silva on 04-04-2022 INR Coag (PPP) [Relative time] 1.2 {INR} [facility] Comment on above: INR Therapeutic Rang [...] 04-04-2022 Platelets (Bld) [#/Vol] 224 10*3/uL 150-450 [facility] Protein Auto test strip (U) [Mass/Vol]Ordered By: Janette Dior on 04-04-2022 Protein (U) [Mass/Vol] Trace mg/dL Negative [facility] Protein [Mass/volume] in Ser um or PlasmaOrdered By: Frank Silva on 04-04-2022 Protein [Mass/Vol] 6.7 g/dL 6.1-7.9 [facility] RBC Auto (Bld) [#/Vol]Ordere d By: Frank Silva on 04-04-2022 RBC (Bld) [#/Vol] 4.49 10*6/uL 3.60-5.00 [facility] Serum or plasma alanine keene otransferase measurement without P-5'-P (enzymatic activiOrdered By: Frank Silva on 04-04-2022 ALT No additional P-5'-P [Catalytic activity/Vol] 15 U/L 10-60 [facility] Serum or plasma albumin/glob ulin mass ratioOrdered By: Frank Silva on 04-04-2022 Albumin/Globulin [Mass ratio] 1.2 {ratio} [facility] Serum or plasma alkaline jared sphatase measurement (enzymatic activity/volume)Ordered By: Frank Silva on 04-04-2022 ALP [Catalytic activity/Vol] 48 U/L 32-92 [facility] Serum or plasma aspartate am inotransferase measurement (enzymatic activity/volume)Ordered By: Frank Silva on 04-04-2022 AST [Catalytic activity/Vol] 15 U/L 10-42 [facility] Serum or plasma calcium marychuy urement (mass/volume)Ordered By: Frank Silva on 04-04-2022 Calcium [Mass/Vol] 9.0 mg/dL 8.2-10.2 [facility] Serum or plasma chloride nemo surement (moles/volume)Ordered By: Frank Silva on 04-04-2022 Chloride [Moles/Vol] 102 mmol/L 95-114 [facility] Serum or plasma glucose marychuy urement (mass/volume)Ordered By: Frank Silva on 04-04-2022 Glucose [Mass/Vol] 92 mg/dL 70-100 [facility] Comment on above: ADA recommended refe rence range Random Glucose Reference Range is dependent on time and content of last meal. Glucose of more than 200 mg/dL in a nonstressed, ambulatory subject supports the diagnosis of Diabetes Mellitus. Serum or plasma potassium me asurement (moles/volume)Ordered By: Frank Silva on 04-04-2022 Potassium [Moles/Vol] 3.1 mmol/L 3.5-5.1 [facility] Serum or plasma sodium measu rement (moles/volume)Ordered By: Frank Silva on 04-04-2022 Sodium [Moles/Vol] 137 mmol/L 136-146 [facility] Serum or plasma total biliru bin measurement (mass/volume)Ordered By: Frank Silva on 04-04-2022 Bilirubin [Mass/Vol] 0.7 mg/dL 0.3-1.2 [facility] Serum or plasma total carbon dioxide measurement (moles/volume)Ordered By: Frank Silva on 04-04-2022 CO2 [Moles/Vol] 23.6 mmol/L 22.0-30.0 [facility] Serum or plasma urea nitroge n measurement (mass/volume)Ordered By: Frank Silva on 04-04-2022 Urea nitrogen [Mass/Vol] 8 mg/dL 9- [facility] Specific gravity Auto test s trip (U) [Rel density]Ordered By: Janette Dior on 04-04-2022 Specific gravity (U) [Rel density] 1.027 1.001-1.03 0 [facility] Squamous epithelial cells de tection in urine sediment by light microscopyOrdered By: Janette Dior on 04-04-2022 Epithelial cells.squamous LM Ql (Urine sed) 10-19 [HPF] 0-2 [facility] Troponin I.cardiac [Mass/vol ume] in Serum or Plasma by High sensitivity methodOrdered By: Frank Silva on 04-04-2022 Troponin I.cardiac High sensitivity method [Mass/Vol] 3 pg/mL 0-15 [facility] Urine bacteria detection by automated methodOrdered By: Janette Dior on 04-04-2022 Bacteria Auto Ql (U) None seen None Seen [facility] Urine clarity by refractomet ry automatedOrdered By: Janette Dior on 04-04-2022 Clarity Refractometry automated (U) Cloudy Clear [facility] Urine glucose measurement by automated test strip (mass/volume)Ordered By: Janette Dior on 04-04-2022 Glucose Auto test strip (U) [Mass/Vol] Normal mg/dL Normal [facility] Urine hemoglobin detection b y automated test stripOrdered By: Janette Dior on 04-04-2022 Hemoglobin Auto test strip Ql (U) 2+ Negative [facility] Urine leukocyte esterase det ection by automated test stripOrdered By: Janette Dior on 04-04-2022 Leukocyte esterase Auto test strip Ql (U) Negative Negative [facility] Urine sediment renal epithel ial cell count by microscopy (number/high power field)Ordered By: Janette Dior on 04-04-2022 Epithelial cells.renal LM.HPF (Urine sed) [#/Area] None seen [HPF] 0-1 [facility] Urobilinogen Auto test strip (U) [Mass/Vol]Ordered By: Janette Dior on 04-04-2022 Urobilinogen (U) [Mass/Vol] Normal mg/dL Normal [facility] pH Auto test strip (U)Ordere d By: Janette Dior on 04-04-2022 pH (U) 6.0 [pH] 5.0-9.0 [facility] HCG,URINEon 04-03-2022 Beta HCG ( test) Ql (U) Negative Normal Negative [facility] Comment on above: Order Comment: poct Performed By: #### H CGU #### [facility] [address] [place] [address] No Panel Informationon 04-03 -Surgery- [facility] Work Phone: Order Reconciliationon 04-03 Order [...] be shared with your follow-up providers (doctor, cigar packer and shader, physical therapist, etc.). Follow Up with Dr. Crocker in [address] or operate motor vehicles for 24 hours and while taking narcotic pain me (more content not included)... Normal [facility] Surgical Pathology Depar tmenton 04-03-2022 [facility] Surgical Pathology Department Name LEANDRA FONSECA Pathologist: REBECCA LAN MD Date of Procedure: 04/03/2022 Date Received: 04/04/2022 Date Reported 04/17/2022 Submitting Physician: SLY CROCKER MD Location: [facility] Surg Other External # FINAL DIAGNOSIS A. LEFT ABDOMINAL WALL ENDOMETRIOMA: --ENDOMETRIOSIS INVOLVING SUBCUTANEOUS FIBROVASCULAR AND ADIPOSE TISSUES. Electronically Signed Out By REBECCA LAN MD/SHIRAZ By the signature on this report, the individual or group listed as making the Final Interpretation/Diagnosis certifies that they have reviewed this case. Diagnostic interpretation performed at [facility] [address] [place] [address] Clinical History: Physician Contact Number: [phone] Fixative (A): Formalin Clinical Diagnosis History LEFT [...] fibrous cut surfaces admixed with yellow adipose. Professor Of Exercise Science sections are submitted in 10 cassettes. Summary of Cassettes: Specimen Label Site A 1-2 medial tip, full-thickness, bisected 3-4 lateral, full-thickness, bisected 5-7 unit support representative sections of fibrous tissue to closest superior margin 8-10 unit support representative sections of fibrous tissue to closest inferior margin mjr/04/06/2022 [facility] Department of Pathology [id number] [place] [address] Normal [facility] Comment on above: Performed By: #### U HCS #### [facility] Surgical Pathology Department [id number] [place] [id number] Urine Teston 04-03 HCG ( test) Ql (U) Negative Negative [facility]- [facility] [address] Work Phone: COVID-19 Positive/NegativeOr dered By: Sly Crocker on 03-31-2022 SARS-CoV-2 (COVID-19) N gene HIRAM+probe Ql (Resp) Negative Negative [facility] Comment on above: Testing for SARS-CoV -2 by RT-PCR This test was developed and its performance characteristics determined by [employer] ([employer] and validated at the [facility]. 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 (procedure may be cancelled if no bookmobile driver), insurance information, remove jewerly/piercings How to be AddressedAshley Spoken Language PreferredEnglish Source of Informationpatient Stated Reason for AdmissionLeft abdominal wall tumor resection Primary Contact Name and NumberBoyfriend- Deantrae [phone] Medications Brought to [facility] General Health: Weight in kg75.4 kilogram(s) Weight in gjg489.2 pound(s) Weight Methodactual (measured) Scale Typestanding Height [...] child(uriah) Living Arrangementshouse Resource/Environmental Concernsnone [facility] Anticipated at Transitionnone Tobacco Use: Tobacco Useno Pre-op Checklist: Arrival [id number] Arrival Time11:16 Procedure Typeabdominal wall tumor resection NPOyes Last Food [id number] 21:00 Last Clear Fluid [id number] 21:00 ID Band On Patientpatient ID (name), [...] Last Updated: 03-Apr-2022 11:57 by Aviva Galvez) [place] [facility] Office Visit (Oncology Surge ry)on 03-24-2022 Follow-up visit Diagnoses/Problems Assessed Abdominal wall mass (489.30) (R22.2) *Orders Abdominal wall mass CORONAVIRUS 2019 RNA BY PCR, SCREEN ASYMPTOMATIC AMBULATORY; Status:Hold For - Specimen/Data Collection,Retrospective By Protocol Authorization; Requested for:[id number]; Abdominal wall mass (789.30) (R22.2) Patient Discussion/Summary [...] with thyroid problems Social history: Lives in [place] with her boyfriend. She has 2 children [...] Kim Isaac; (more content not included)... Normal [facility] Tobacco Screening.on 022 Fall risk assessment a) No falls within the last year [facility] Work Phone: Tobacco use status CPHS b) No [facility] Work Phone: Automated erythrocytes count in urine sediment (number/area)Ordered By: Jim Vega on 03-15-2022 RBC Auto (Urine sed) [#/Area] 5-9 [HPF] 0-4 [facility] Automated leukocytes count i n urine sediment (number/area)Ordered By: Jim Vega on 03-15-2022 WBC Auto (Urine sed) [#/Area] None seen [HPF] 0-4 [facility] Basophils Auto (Bld) [#/Vol] Ordered By: Jim Vega on 03-15-2022 Basophils (Bld) [#/Vol] 0.1 10*3/uL 0.0-0.2 [facility] Basophils/100 WBC Auto (Bld) Ordered By: Jim Vega on 03-15-2022 Basophils/100 WBC (Bld) 0.7 % . [facility] Bilirubin Test strip Ql (U)O rdered By: Jim Vega on 03-15-2022 Bilirubin Ql (U) Negative Negative [facility] Blood hemoglobin measurement (mass/volume)Ordered By: Jim Vega on 03-15-2022 Hemoglobin (Bld) [Mass/Vol] 9.9 g/dL 11.8-15.4 [facility] Blood leukocytes automated c ount (number/volume)Ordered By: Jim Vega on 03-15-2022 WBC (Bld) [#/Vol] 8.3 10*3/uL 4.5-11.0 [facility] Body fluid albumin measureme nt (mass/volume)Ordered By: Jim Vega on 03-15-2022 Albumin (Body fld) [Mass/Vol] 3.7 g/dL 3.2-5.5 [facility] Color Auto (U)Ordered By: Narinder Vega on 03-15-2022 Color (U) Yellow Yellow [facility] Creatinine and Glomerular fi ltration rate.predicted panel (S/P/Bld)Ordered By: Jim Vega on 03-15-2022 Creatinine [Mass/Vol] 0.85 mg/dL 0.44-1.03 [facility] Eosinophils Auto (Bld) [#/Vo l]Ordered By: Jim Vega on 03-15-2022 Eosinophils (Bld) [#/Vol] 0.2 10*3/uL 0.0-0.45 [facility] Eosinophils/100 WBC Auto (Bl d)Ordered By: Jim Vega on 03-15-2022 Eosinophils/100 WBC (Bld) 2.0 % . [facility] Erythrocyte distribution wid th Auto (RBC) [Ratio]Ordered By: Jim Vega on 03-15-2022 Erythrocyte distribution width (RBC) [Ratio] 14.4 % 11.9-15.3 [facility] Estimated glomerular filtrat ion rate (GFR) non- AmericanOrdered By: Jim Vega on 03-15-2022 GFR/1.73 sq M.predicted among non-blacks MDRD (S/P/Bld) [Vol rate/Area] > 60 mL/Min [facility] Globulin Calc (S) [Mass/Vol] Ordered By: Jim Vega on 03-15-2022 Globulin (S) [Mass/Vol] 3.6 g/dL [facility] HCG ( test) IA.rapi d Ql (U)Ordered By: Jim Vega on 03-15-2022 HCG ( test) Ql (U) Negative [facility] Hematocrit Auto (Bld) [Volum e fraction]Ordered By: Jim Vega on 03-15-2022 Hematocrit (Bld) [Volume fraction] 31.8 % 34.0-46.4 [facility] Ketones Auto test strip (U) [Mass/Vol]Ordered By: Jim Vega on 03-15-2022 Ketones (U) [Mass/Vol] Negative Negative [facility] - Chemistry and C hemistry - challengeOrdered By: Jim Vega on 03-15-2022 Lipase [Catalytic activity/Vol] 53.0 U/L 22-51 [facility] Natriuretic peptide B (Bld) [Mass/Vol] 13.0 pg/mL 5-100 [facility] Laboratory - Hematology and Cell countsOrdered By: Jim Vega on 03-15-2022 Nucleated RBC/100 WBC (Bld) [Ratio] 0.0 % 0-0.5 [facility] Laboratory - UrinalysisOrder ed By: Jim Vega on 03-15-2022 Hyaline casts LM Ql (Urine sed) None seen [LPF] 0-8 [facility] Lymphocytes Auto (Bld) [#/Vo l]Ordered By: Jim Vega on 03-15-2022 Lymphocytes (Bld) [#/Vol] 1.9 10*3/uL 1.00-4.8 [facility] Lymphocytes/100 WBC Auto (Bl d)Ordered By: Jim Vega on 03-15-2022 Lymphocytes/100 WBC (Bld) 22.9 % . [facility] MCH Auto (RBC) [Entitic mass ]Ordered By: Jim Vega on 03-15-2022 MCH (RBC) [Entitic mass] 22.2 pg 24.7-34.3 [facility] MCHC Auto (RBC) [Mass/Vol]Or dered By: Jim Vega on 03-15-2022 MCHC (RBC) [Mass/Vol] 31.2 g/dL 32.0-35.0 [facility] MCV Auto (RBC) [Entitic vol] Ordered By: Jim Vega on 03-15-2022 MCV (RBC) [Entitic vol] 71.1 fL 80-100 [facility] Monocytes Auto (Bld) [#/Vol] Ordered By: Jim Vega on 03-15-2022 Monocytes (Bld) [#/Vol] 0.6 10*3/uL 0.0-0.8 [facility] Monocytes/100 WBC Auto (Bld) Ordered By: Jim Vega on 03-15-2022 Monocytes/100 WBC (Bld) 6.9 % . [facility] Neutrophils Auto (Bld) [#/Vo l]Ordered By: Jim Vega on 03-15-2022 Neutrophils (Bld) [#/Vol] 5.6 10*3/uL 1.8-7.7 [facility] Neutrophils/100 WBC Auto (Bl d)Ordered By: Jim Vega on 03-15-2022 Neutrophils/100 WBC (Bld) 67.5 % . [facility] Nitrite Test strip Ql (U)Ord ered By: Jim Vega on 03-15-2022 Nitrite Ql (U) Negative Negative [facility] No Panel InformationOrdered By: Jim Vega on 03-15-2022 Estimated GFR () > 60 mL/Min [facility] Comment on above: GFR estimated refere nce range: According to KDOQI guidelines, <60 ml/min/1.73m2 is sufficient to diagnose a patient with chronic kidney disease. Pharmacy Creatinine Clearance (Chem 93.64 [facility] Platelet mean volume Auto (B ld) [Entitic vol]Ordered By: Jim Vega on 03-15-2022 Platelet mean volume (Bld) [Entitic vol] 9.4 fL 6.3-10.7 [facility] Platelets Auto (Bld) [#/Vol] Ordered By: Jim Vega on 03-15-2022 Platelets (Bld) [#/Vol] 254 10*3/uL 150-450 [facility] Protein Auto test strip (U) [Mass/Vol]Ordered By: Jim Vega on 03-15-2022 Protein (U) [Mass/Vol] Negative Negative [facility] Protein [Mass/volume] in Ser um or PlasmaOrdered By: Jim Vega on 03-15-2022 Protein [Mass/Vol] 7.3 g/dL 6.1-7.9 [facility] RBC Auto (Bld) [#/Vol]Ordere d By: Jim Vega on 03-15-2022 RBC (Bld) [#/Vol] 4.47 10*6/uL 3.60-5.00 [facility] Serum or plasma alanine keene otransferase measurement without P-5'-P (enzymatic activiOrdered By: Jim Vega on 03-15-2022 ALT No additional P-5'-P [Catalytic activity/Vol] 14 U/L 10-60 [facility] Serum or plasma albumin/glob ulin mass ratioOrdered By: Jim Vega on 03-15-2022 Albumin/Globulin [Mass ratio] 1.0 {ratio} [facility] Serum or plasma alkaline jared sphatase measurement (enzymatic activity/volume)Ordered By: Jim Vega on 03-15-2022 ALP [Catalytic activity/Vol] 45 U/L 32-92 [facility] Serum or plasma aspartate am inotransferase measurement (enzymatic activity/volume)Ordered By: Jim Vega on 03-15-2022 AST [Catalytic activity/Vol] 17 U/L 10-42 [facility] Serum or plasma calcium marychuy urement (mass/volume)Ordered By: Jim Vega on 03-15-2022 Calcium [Mass/Vol] 9.4 mg/dL 8.2-10.2 [facility] Serum or plasma chloride nemo surement (moles/volume)Ordered By: Jim Vega on 03-15-2022 Chloride [Moles/Vol] 102 mmol/L 95-114 [facility] Serum or plasma glucose marychuy urement (mass/volume)Ordered By: Jim Vega on 03-15-2022 Glucose [Mass/Vol] 85 mg/dL 70-100 [facility] Comment on above: ADA recommended refe rence range Random Glucose Reference Range is dependent on time and content of last meal. Glucose of more than 200 mg/dL in a nonstressed, ambulatory subject supports the diagnosis of Diabetes Mellitus. Serum or plasma potassium me asurement (moles/volume)Ordered By: Jim Vega on 03-15-2022 Potassium [Moles/Vol] 4.2 mmol/L 3.5-5.1 [facility] Serum or plasma sodium measu rement (moles/volume)Ordered By: Jim Vega on 03-15-2022 Sodium [Moles/Vol] 136 mmol/L 136-146 [facility] Serum or plasma total biliru bin measurement (mass/volume)Ordered By: Jim Vega on 03-15-2022 Bilirubin [Mass/Vol] 0.1 mg/dL 0.3-1.2 [facility] Serum or plasma total carbon dioxide measurement (moles/volume)Ordered By: Jim Vega on 03-15-2022 CO2 [Moles/Vol] 26.3 mmol/L 22.0-30.0 [facility] Serum or plasma urea nitroge n measurement (mass/volume)Ordered By: Jim Vega on 03-15-2022 Urea nitrogen [Mass/Vol] 9 mg/dL 9-23 [facility] Specific gravity Auto test s trip (U) [Rel density]Ordered By: Jim Vega on 03-15-2022 Specific gravity (U) [Rel density] 1.010 1.001-1.03 0 [facility] [place] epithelial cells de tection in urine sediment by light microscopyOrdered By: Jim Vega on 03-15-2022 Epithelial cells.squamous LM Ql (Urine sed) 0-1 [HPF] 0-2 [facility] Troponin I.cardiac [Mass/vol ume] in Serum or Plasma by High sensitivity methodOrdered By: Jim Vega on 03-15-2022 Troponin I.cardiac High sensitivity method [Mass/Vol] 3 pg/mL 0-15 [facility] Urine bacteria detection by automated methodOrdered By: Jim Vega on 03-15-2022 Bacteria Auto Ql (U) None seen None Seen [facility] Urine clarity by refractomet ry automatedOrdered By: Jim Vega on 03-15-2022 Clarity Refractometry automated (U) Clear Clear [facility] Urine glucose measurement by automated test strip (mass/volume)Ordered By: Jim Vega on 03-15-2022 Glucose Auto test strip (U) [Mass/Vol] Normal mg/dL Normal [facility] Urine hemoglobin detection b y automated test stripOrdered By: Jim Vega on 03-15-2022 Hemoglobin Auto test strip Ql (U) Trace Negative [facility] Urine leukocyte esterase det ection by automated test stripOrdered By: Jim Vega on 03-15-2022 Leukocyte esterase Auto test strip Ql (U) Negative Negative [facility] Urobilinogen Auto test strip (U) [Mass/Vol]Ordered By: Jim Vega on 03-15-2022 Urobilinogen (U) [Mass/Vol] Normal mg/dL Normal [facility] pH Auto test strip (U)Ordere d By: Jim Vega on 03-15-2022 pH (U) 7.5 [pH] 5.0-9.0 [facility] US FINE NEEDLE ASP EXPon US FINE NEEDLE ASP EXP Begin Addendu m #1 COLLECTED DATE/TIME: 02/20/2022 13:18 EST Final Diagnosis Report for THE [place]ON [place], [place] (A/B) MASS NEAR SCAR; FINE NEEDLE [...] 2. Pathology results are pending. Normal [facility] US SINGLE QUAD LT [...] KALPESH FOWLER Date: 2022-02-02 09:33 Normal [facility] CT ABD/PELVIS WO CONon [...] by: JENN GREWAL Date: 2022-01-11 11:40 Normal [facility] Vital Signs Date Time Vital Sign Value Performing Clinician Facility 05-22-2025 15:29-0400 Body height 160.02 cm Malcolm Helder DO Work Phone: [facility] 05-22-2025 15:29-0400 Body mass index (BMI) [Ratio] 31.5 kg/m2 Malcolm Helder DO Work Phone: [facility] 05-22-2025 15:29-0400 Body temperature 97.9 [degF] Malcolm Helder DO Work Phone: [facility] 05-22-2025 15:29-0400 Body weight 80.73 kg Malcolm Helder DO Work Phone: [facility] 05-22-2025 15:29-0400 Diastolic blood pressure 77 mm[Hg] Malcolm Helder DO Work Phone: [facility] 05-22-2025 15:29-0400 Heart rate 97 /min Malcolm Helder DO Work Phone: [facility] 05-22-2025 15:29-0400 Respiratory rate 16 /min Malcolm Helder DO Work Phone: [facility] 05-22-2025 15:29-0400 SaO2% (BldA) [Mass fraction] 99 % Malcolm Helder DO Work Phone: [facility] 05-22-2025 15:29-0400 Systolic blood pressure 119 mm[Hg] Malcolm Helder DO Work Phone: [facility] 05-21-2025 09:57-0400 Body mass index (BMI) [Ratio] 33.62 kg/m2 Malcolm Helder DO Work Phone: [facility] 05-21-2025 09:57-0400 Body weight 84.73 kg Malcolm Helder DO Work Phone: [facility] 05-21-2025 09:57-0400 Diastolic blood pressure 68 mm[Hg] Malcolm Helder DO Work Phone: [facility] 05-21-2025 09:57-0400 Systolic blood pressure 104 mm[Hg] Malcolm Helder DO Work Phone: [facility] 05-13-2025 09:34-0400 Body mass index (BMI) [Ratio] 34.16 kg/m2 Priscilla Warren PA Work Phone: [facility] 05-13-2025 09:34-0400 Body weight 86.09 kg Priscilla Kelvin PA Work Phone: [facility] 05-13-2025 09:34-0400 Diastolic blood pressure 74 mm[Hg] Priscilla Warren PA Work Phone: [facility] 05-13-2025 09:34-0400 Systolic blood pressure 114 mm[Hg] Priscilla Warren PA Work Phone: [facility] 05-05-2025 00:36-0400 Body height 160.02 cm Malcolm Helder DO Work Phone: [facility] 05-05-2025 00:36-0400 Body weight 78.92 kg Malcolm Helder DO Work Phone: [facility] 05-05-2025 00:33-0400 Body temperature 98.2 [degF] Malcolm Helder DO Work Phone: [facility] 05-05-2025 00:33-0400 Diastolic blood pressure 87 mm[Hg] Malcolm Helder DO Work Phone: [facility] 05-05-2025 00:33-0400 Heart rate 96 /min Malcolm Helder DO Work Phone: [facility] 05-05-2025 00:33-0400 Respiratory rate 16 /min Malcolm Helder DO Work Phone: [facility] 05-05-2025 00:33-0400 SaO2% (BldA) [Mass fraction] 98 % Malcolm Helder DO Work Phone: [facility] 05-05-2025 00:33-0400 Systolic blood pressure 141 mm[Hg] Malcolm Pendleton DO Work Phone: [facility] 04-20-2025 14:42-0400 Body height 158.8 cm Gabino Blandon DPM Work Phone: [facility] 04-20-2025 14:42-0400 Body mass index (BMI) [Ratio] 32.22 kg/m2 Gabino Yousif DPM Work Phone: [facility] 04-20-2025 14:42-0400 Body weight 81.19 kg Gabino Blandon DPM Work Phone: [facility] 04-20-2025 14:42-0400 Respiratory rate 16 /min Gabino Blandon DPM Work Phone: [facility] 04-01-2025 09:50-0400 Body mass index (BMI) [Ratio] 33.55 kg/m2 Priscilla Auburn PA Work Phone: [facility] 04-01-2025 09:50-0400 Body weight 85.91 kg Priscilla Kelvin PA Work Phone: [facility] 04-01-2025 09:50-0400 Diastolic blood pressure 70 mm[Hg] Priscilla Auburn PA Work Phone: [facility] 04-01-2025 09:50-0400 Systolic blood pressure 110 mm[Hg] Priscilla Kelvin PA Work Phone: [facility] 03-17-2025 12:00-0400 Body mass index (BMI) [Ratio] 37.38 kg/m2 Priscilla Auburn PA Work Phone: [facility] 03-17-2025 12:00-0400 Body weight 95.71 kg Priscilla Auburn PA Work Phone: [facility] 03-17-2025 12:00-0400 Diastolic blood pressure 74 mm[Hg] Priscilla Kelvin PA Work Phone: [facility] 03-17-2025 12:00-0400 Systolic blood pressure 122 mm[Hg] Priscilla Auburn PA Work Phone: [facility] 03-10-2025 11:34-0400 Body mass index (BMI) [Ratio] 36.76 kg/m2 Malcolm Helder DO Work Phone: [facility] 03-10-2025 11:34-0400 Body weight 94.12 kg Malcolm Helder DO Work Phone: [facility] 03-10-2025 11:34-0400 Diastolic blood pressure 70 mm[Hg] Malcolm Helder DO Work Phone: [facility] 03-10-2025 11:34-0400 Systolic blood pressure 118 mm[Hg] Malcolm Helder DO Work Phone: [facility] 02-24-2025 12:01-0400 Body mass index (BMI) [Ratio] 36.16 kg/m2 Malcolm Helder DO Work Phone: [facility] 02-24-2025 12:01-0400 Body weight 92.59 kg Malcolm Helder DO Work Phone: [facility] 02-24-2025 12:01-0400 Diastolic blood pressure 68 mm[Hg] Malcolm Helder DO Work Phone: [facility] 02-24-2025 12:01-0400 Systolic blood pressure 120 mm[Hg] Malcolm Helder DO Work Phone: [facility] 02-11-2025 10:50-0400 Body mass index (BMI) [Ratio] 35.32 kg/m2 Priscilla SRIVASTAVA Work Phone: [facility] 02-11-2025 10:50-0400 Body weight 90.45 kg Priscilla SRIVASTAVA Work Phone: [facility] 02-11-2025 10:50-0400 Diastolic blood pressure 78 mm[Hg] Priscilla SRIVASTAVA Work Phone: [facility] 02-11-2025 10:50-0400 Systolic blood pressure 122 mm[Hg] Priscilla SRIVASTAVA Work Phone: [facility] 02-01-2025 16:30-0400 Diastolic blood pressure 82 mm[Hg] PHYSICIAN NO [facility] 02-01-2025 16:30-0400 Heart rate 97 /min PHYSICIAN NO [facility] 02-01-2025 16:30-0400 Respiratory rate 20 /min PHYSICIAN NO [facility] 02-01-2025 16:30-0400 SaO2% (BldA) [Mass fraction] 99 % PHYSICIAN NO [facility] 02-01-2025 16:30-0400 Systolic blood pressure 132 mm[Hg] PHYSICIAN NO [facility] 02-01-2025 13:26-0400 Body height 158.75 cm PHYSICIAN NO [facility] 02-01-2025 13:26-0400 Body temperature 98.3 [degF] PHYSICIAN NO [facility] 02-01-2025 13:26-0400 Body weight 89.81 kg PHYSICIAN NO [facility] 02-01-2025 11:47-0400 Body height 157.48 cm PHYSICIAN NO [facility] 02-01-2025 11:47-0400 Body mass index (BMI) [Ratio] 36.2 kg/m2 PHYSICIAN NO [facility] 02-01-2025 11:47-0400 Body temperature 98.2 [degF] PHYSICIAN NO [facility] 02-01-2025 11:47-0400 Body weight 89.81 kg PHYSICIAN NO [facility] 02-01-2025 11:47-0400 Diastolic blood pressure 80 mm[Hg] PHYSICIAN NO [facility] 02-01-2025 11:47-0400 Heart rate 92 /min PHYSICIAN NO [facility] 02-01-2025 11:47-0400 Respiratory rate 16 /min PHYSICIAN NO [facility] 02-01-2025 11:47-0400 SaO2% (BldA) [Mass fraction] 99 % PHYSICIAN NO [facility] 02-01-2025 11:47-0400 Systolic blood pressure 130 mm[Hg] PHYSICIAN NO [facility] 01-27-2025 08:57-0400 Body mass index (BMI) [Ratio] 35.25 kg/m2 [facility] Helder DO Work Phone: [facility] 01-27-2025 08:57-0400 Body weight 90.27 kg Malcolm Helder DO Work Phone: [facility] 01-27-2025 08:57-0400 Diastolic blood pressure 78 mm[Hg] Malcolm Helder DO Work Phone: [facility] 01-27-2025 08:57-0400 Systolic blood pressure 128 mm[Hg] Malcolm Helder DO Work Phone: [facility] 01-14-2025 11:25-0400 Body mass index (BMI) [Ratio] 34.63 kg/m2 Reynold Leslie CONTROL BOARD OPERATOR Work Phone: [facility] 01-14-2025 11:25-0400 Body weight 88.68 kg Reynold Leslie CONTROL BOARD OPERATOR Work Phone: [facility] 01-14-2025 11:25-0400 Diastolic blood pressure 66 mm[Hg] Reynold Leslie CONTROL BOARD OPERATOR Work Phone: [facility] 01-14-2025 11:25-0400 Systolic blood pressure 102 mm[Hg] Reynold Leslie CONTROL BOARD OPERATOR Work Phone: [facility] 12-30-2024 11:45-0400 Body mass index (BMI) [Ratio] 33.66 kg/m2 Malcolm Helder DO Work Phone: [facility] 12-30-2024 11:45-0400 Body weight 86.18 kg Malcolm Helder DO Work Phone: [facility] 12-30-2024 11:45-0400 Diastolic blood pressure 74 mm[Hg] Malcolm Helder DO Work Phone: [facility] 12-30-2024 11:45-0400 Systolic blood pressure 122 mm[Hg] Malcolm Helder DO Work Phone: [facility] 11-21-2024 09:53-0500 Body height 160 cm Henny Montgomery MD Work Phone: [facility] 11-21-2024 09:53-0500 Body mass index (BMI) [Ratio] 32.64 kg/m2 Henny Montgomery MD Work Phone: [facility] 11-21-2024 09:53-0500 Body weight 83.55 kg Henny Montgomery MD Work Phone: [facility] 11-21-2024 09:53-0500 Diastolic blood pressure 69 mm[Hg] Henny Montgomery MD Work Phone: [facility] 11-21-2024 09:53-0500 Heart rate 87 /min Henny Montgomery MD Work Phone: [facility] 11-21-2024 09:53-0500 Systolic blood pressure 113 mm[Hg] Henny Montgomery MD Work Phone: [facility] 11-10-2024 14:55-0500 Body height 157.48 cm Yudelka Lopez APRN Work Phone: [facility] 11-10-2024 14:55-0500 Body mass index (BMI) [Ratio] 33.6 kg/m2 Yudleka Lopez APRN Work Phone: [facility] 11-10-2024 14:55-0500 Body temperature 97.8 [degF] Yudelka Lopez APRN Work Phone: [facility] 11-10-2024 14:55-0500 Body weight 83.46 kg Yudelka Lopez APRN Work Phone: [facility] 11-10-2024 14:55-0500 Diastolic blood pressure 80 mm[Hg] Yudelka Lopez APRN Work Phone: [facility] 11-10-2024 14:55-0500 Heart rate 9 /min Yudelka Lopez APRN Work Phone: [facility] 11-10-2024 14:55-0500 Respiratory rate 16 /min Yudelka Lopez APRN Work Phone: [facility] 11-10-2024 14:55-0500 SaO2% (BldA) [Mass fraction] 99 % Yudelka Lopez SWITCHGEAR REPAIRER Work Phone: [facility] 11-10-2024 14:55-0500 Systolic blood pressure 121 mm[Hg] Yudelka Lopez APRN Work Phone: [facility] 11-04-2024 09:28-0500 Body mass index (BMI) [Ratio] 31.71 kg/m2 Malcolm Helder DO Work Phone: [facility] 11-04-2024 09:28-0500 Body weight 81.19 kg Malcolm Helder DO Work Phone: [facility] 11-04-2024 09:28-0500 Diastolic blood pressure 70 mm[Hg] Malcolm Helder DO Work Phone: [facility] 11-04-2024 09:28-0500 Systolic blood pressure 120 mm[Hg] Malcolm Helder DO Work Phone: [facility] 10-14-2024 11:37-0500 Body mass index (BMI) [Ratio] 30.08 kg/m2 Priscilla Warren PA Work Phone: [facility] 10-14-2024 11:37-0500 Body weight 77.02 kg Priscilla Warren PA Work Phone: [facility] 10-14-2024 11:37-0500 Diastolic blood pressure 66 mm[Hg] Priscilla Warren PA Work Phone: [facility] 10-14-2024 11:37-0500 Systolic blood pressure 124 mm[Hg] Priscilla Warren PA Work Phone: [facility] 09-11-2024 10:52-0500 Body mass index (BMI) [Ratio] 28.77 kg/m2 Malcolm Helder DO Work Phone: [facility] 09-11-2024 10:52-0500 Body weight 73.66 kg Malcolm Helder DO Work Phone: [facility] 09-11-2024 10:52-0500 Diastolic blood pressure 62 mm[Hg] Malcolm Helder DO Work Phone: [facility] 09-11-2024 10:52-0500 Systolic blood pressure 128 mm[Hg] Malcolm Helder DO Work Phone: [facility] 08-06-2024 23:53-0500 Diastolic blood pressure 68 mm[Hg] Yudelka Lopez SWITCHGEAR REPAIRER Work Phone: [facility] 08-06-2024 23:53-0500 Heart rate 75 /min Yudelka Lopez SWITCHGEAR REPAIRER Work Phone: [facility] 08-06-2024 23:53-0500 Respiratory rate 22 /min Yudelka Lopez SWITCHGEAR REPAIRER Work Phone: [facility] 08-06-2024 23:53-0500 SaO2% (BldA) [Mass fraction] 100 % Yudelka Lopez SWITCHGEAR REPAIRER Work Phone: [facility] 08-06-2024 23:53-0500 Systolic blood pressure 128 mm[Hg] Yudelka John SWITCHGEAR REPAIRER Work Phone: [facility] 08-06-2024 21:25-0500 Body height 157.48 cm Yudelka John HAASN Work Phone: [facility] 08-06-2024 21:25-0500 Body weight 74.3 kg Yudelka Lopez APRN Work Phone: [facility] 07-14-2024 15:03-0400 Diastolic blood pressure 75 mm[Hg] BETTY Jha Lopez Work Phone: [facility] 07-14-2024 15:03-0400 Heart rate 71 /min BETTY Lopez Work Phone: [facility] 07-14-2024 15:03-0400 Respiratory rate 18 /min BETTY Lopez Work Phone: [facility] 07-14-2024 15:03-0400 SaO2% (BldA) [Mass fraction] 99 % BETTY Lopez Work Phone: [facility] 07-14-2024 15:03-0400 Systolic blood pressure 114 mm[Hg] SWITCHGEAR REPAIRER Yudelka Lopez Work Phone: [facility] 07-14-2024 12:23-0400 Body height 157.48 cm BETTY Lopez Work Phone: [facility] 07-14-2024 12:17-0400 Body height 157.48 cm BETTY Lopez Work Phone: [facility] 07-14-2024 12:17-0400 Body temperature 98.4 [degF] BETTY Lpoez Work Phone: [facility] 07-14-2024 12:17-0400 Body weight 74 kg BETTY Lopez Work Phone: [facility] 07-14-2024 11:43-0400 Body height 157.48 cm [facility] 07-14-2024 11:43-0400 Body mass index (BMI) [Ratio] 29 kg/m2 [facility] 07-14-2024 11:43-0400 Body temperature 98.2 [degF] [facility] 07-14-2024 11:43-0400 Body weight 72.12 kg [facility] 07-14-2024 11:43-0400 Diastolic blood pressure 76 mm[Hg] [facility] 07-14-2024 11:43-0400 Heart rate 97 /min [facility] 07-14-2024 11:43-0400 SaO2% (BldA) [Mass fraction] 99 % [facility] 07-14-2024 11:43-0400 Systolic blood pressure 114 mm[Hg] [facility] 09-28-2023 14:34-0500 Body weight 73.93 kg BETTY Lopez Work Phone: [facility] 09-28-2023 14:34-0500 Diastolic blood pressure 79 mm[Hg] SWITCHGEAR REPAIRER Yudelka Lopez Work Phone: [facility] 09-28-2023 14:34-0500 Heart rate 66 /min SWITCHGEAR REPAIRER Yudelka Lopez Work Phone: [facility] 09-28-2023 14:34-0500 Respiratory rate 20 /min SWITCHGEAR REPAIRER Yudelka Lopez Work Phone: [facility] 09-28-2023 14:34-0500 SaO2% (BldA) [Mass fraction] 100 % SWITCHGEAR REPAIRER Yudelka Lopez Work Phone: [facility] 09-28-2023 14:34-0500 Systolic blood pressure 119 mm[Hg] SWITCHGEAR REPAIRER Yudelka Lopez Work Phone: [facility] 06-27-2023 10:33-0400 Body height 157.48 cm BETTY Lopez Work Phone: [facility] 06-27-2023 10:33-0400 Body temperature 97.7 [degF] BETTY Lopez Work Phone: [facility] 06-27-2023 10:33-0400 Body weight 72.52 kg BETTY Lopez Work Phone: [facility] 06-27-2023 10:33-0400 Diastolic blood pressure 80 mm[Hg] SWITCHGEAR REPAIRER Yudelka Lopez Work Phone: [facility] 06-27-2023 10:33-0400 Heart rate 80 /min SWITCHGEAR REPAIRER Yudelka Lopez Work Phone: [facility] 06-27-2023 10:33-0400 Respiratory rate 20 /min SWITCHGEAR REPAIRER Yudelka Lopez Work Phone: [facility] 06-27-2023 10:33-0400 SaO2% (BldA) [Mass fraction] 100 % SWITCHGEAR REPAIRER Yudelka Lopez Work Phone: [facility] 06-27-2023 10:33-0400 Systolic blood pressure 120 mm[Hg] SWITCHGEAR REPAIRER Yudelka Lopez Work Phone: [facility] 06-04-2023 18:15-0400 Body height 157.48 cm Marvin Fontenot Other [employer] Other 06-04-2023 18:15-0400 Body mass index (BMI) [Ratio] 30.36 kg/m2 Marvin Fontenot Other [employer] Other 06-04-2023 18:15-0400 Body temperature 98.5 [degF] Marvin Fontenot Other [employer] Other 06-04-2023 18:15-0400 Body weight 75.3 kg Marvin Fontenot Other [employer] Other 06-04-2023 18:15-0400 Respiratory rate 20 /min Marvin Fontenot Other [employer] Other 06-04-2023 18:15-0400 SaO2% (BldA) [Mass fraction] 98 % Marvin Fontenot Other [employer] Other 03-21-2023 15:04-0400 Body weight 73.16 kg SWITCHGEAR REPAIRERFamilia Lopez Work Phone: [facility] 03-21-2023 15:04-0400 Diastolic blood pressure 74 mm[Hg] SWITCHGEAR REPAIRERFamilia Lopez Work Phone: [facility] 03-21-2023 15:04-0400 Heart rate 109 /min SWITCHGEAR REPAIRERFamilia Lopez Work Phone: [facility] 03-21-2023 15:04-0400 Respiratory rate 20 /min BETTY Lopez Work Phone: [facility] 03-21-2023 15:04-0400 SaO2% (BldA) [Mass fraction] 99 % BETTY Lopez Work Phone: [facility] 03-21-2023 15:04-0400 Systolic blood pressure 134 mm[Hg] SWITCHGEAR REPAIRERFamilia Lopez Work Phone: [facility] 02-07-2023 10:42-0400 Diastolic blood pressure 70 mm[Hg] SWITCHGEAR REPAIRER Yudelka Lopez Work Phone: [facility] 02-07-2023 10:42-0400 Heart rate 82 /min SWITCHGEAR REPAIRER Yudelka Lopez Work Phone: [facility] 02-07-2023 10:42-0400 Respiratory rate 18 /min SWITCHGEAR REPAIRER Yudelka Lopez Work Phone: [facility] 02-07-2023 10:42-0400 SaO2% (BldA) [Mass fraction] 97 % SWITCHGEAR REPAIRER Yudelka Lopez Work Phone: [facility] 02-07-2023 10:42-0400 Systolic blood pressure 118 mm[Hg] SWITCHGEAR REPAIRER Yudelka Lopez Work Phone: [facility] 02-07-2023 08:15-0400 Body temperature 98 [degF] SWITCHGEAR REPAIRER Yudelka Lopez Work Phone: [facility] 02-06-2023 10:57-0400 Diastolic blood pressure 54 mm[Hg] SWITCHGEAR REPAIRER Yudelka John Work Phone: [facility] 02-06-2023 10:57-0400 Heart rate 66 /min SWITCHGEAR REPAIRER Yudelka Lopez Work Phone: [facility] 02-06-2023 10:57-0400 Respiratory rate 18 /min SWITCHGEAR REPAIRER Yudelka John Work Phone: [facility] 02-06-2023 10:57-0400 SaO2% (BldA) [Mass fraction] 99 % SWITCHGEAR REPAIRER Yudelka John Work Phone: [facility] 02-06-2023 10:57-0400 Systolic blood pressure 113 mm[Hg] SWITCHGEAR REPAIRER Yudelka Lopez Work Phone: [facility] 02-06-2023 09:14-0400 Body height 160.02 cm SWITCHGEAR REPAIRER Yudelka Lopez Work Phone: [facility] 02-06-2023 09:14-0400 Body temperature 98.1 [degF] SWITCHGEAR REPAIRER Yudelka Lopez Work Phone: [facility] 02-06-2023 09:14-0400 Body weight 73 kg BETTY Lopez Work Phone: [facility] 01-25-2023 12:38-0400 Diastolic blood pressure 74 mm[Hg] BETTY Lopez Work Phone: [facility] 01-25-2023 12:38-0400 Heart rate 72 /min BETTY Lopez Work Phone: [facility] 01-25-2023 12:38-0400 Respiratory rate 18 /min BETTY Lopez Work Phone: [facility] 01-25-2023 12:38-0400 SaO2% (BldA) [Mass fraction] 100 % BETTY Lopez Work Phone: [facility] 01-25-2023 12:38-0400 Systolic blood pressure 101 mm[Hg] BETTY Lopez Work Phone: [facility] 01-25-2023 08:19-0400 Body temperature 98.3 [degF] BETTY Lopez Work Phone: [facility] 01-02-2023 10:31-0400 Body weight 75.2 kg BETTY Lopez Work Phone: [facility] 12-21-2022 10:00-0400 Body height 157.48 cm Imad Asaad Other [facility] [employer] Other 12-21-2022 10:00-0400 Body mass index (BMI) [Ratio] 30.36 kg/m2 Imad Asaad Other [employer] Other 12-21-2022 10:00-0400 Body weight 75.3 kg Imad Asaad Other [employer] Other 04-06-2023 10:00-0400 Diastolic blood pressure 68 mm[Hg] Imad Asaad Other [facility] [employer] Other 12-21-2022 10:00-0400 Systolic blood pressure 115 mm[Hg] Imad Asaad Other [facility] [employer] Other 11-28-2022 20:38-0400 Body height 157.48 cm SWITCHGEAR REPAIRER Yudelka Lopez Work Phone: [facility] 11-28-2022 20:38-0400 Body temperature 97.9 [degF] SWITCHGEAR REPAIRER Yudelka Lopez Work Phone: [facility] 11-28-2022 20:38-0400 Body weight 75.2 kg SWITCHGEAR REPAIRER Yudelka Lopez Work Phone: [facility] 11-28-2022 20:38-0400 Diastolic blood pressure 72 mm[Hg] SWITCHGEAR REPAIRER Yudelka Lopez Work Phone: [facility] 11-28-2022 20:38-0400 Heart rate 78 /min SWITCHGEAR REPAIRER Yudelka Lopez Work Phone: [facility] 11-28-2022 20:38-0400 Respiratory rate 18 /min SWITCHGEAR REPAIRER Yudelka Lopez Work Phone: [facility] 11-28-2022 20:38-0400 SaO2% (BldA) [Mass fraction] 100 % SWITCHGEAR REPAIRER Yudelka Lopez Work Phone: [facility] 11-28-2022 20:38-0400 Systolic blood pressure 140 mm[Hg] SWITCHGEAR REPAIRER Yudelka Lopez Work Phone: [facility] 11-01-2022 12:30-0500 Diastolic blood pressure 66 mm[Hg] SWITCHGEAR REPAIRER Yudelka Lopez Work Phone: [facility] 11-01-2022 12:30-0500 Heart rate 60 /min SWITCHGEAR REPAIRER Yudelka Lopez Work Phone: [facility] 11-01-2022 12:30-0500 Respiratory rate 18 /min SWITCHGEAR REPAIRER Yudelka Lopez Work Phone: [facility] 11-01-2022 12:30-0500 SaO2% (BldA) [Mass fraction] 100 % SWITCHGEAR REPAIRER Yudelak Lopez Work Phone: [facility] 11-01-2022 12:30-0500 Systolic blood pressure 108 mm[Hg] SWITCHGEAR REPAIRER Yudelka Lopez Work Phone: [facility] 11-01-2022 10:17-0500 Body temperature 98.9 [degF] SWITCHGEAR REPAIRER Yudelka Lopez Work Phone: [facility] 10-10-2022 15:05-0500 Diastolic blood pressure 62 mm[Hg] SWITCHGEAR REPAIRER Yudelka Lopez Work Phone: [facility] 10-10-2022 15:05-0500 Heart rate 68 /min SWITCHGEAR REPAIRER Yudelka Lopez Work Phone: [facility] 10-10-2022 15:05-0500 Respiratory rate 16 /min SWITCHGEAR REPAIRER Yudelka Lopez Work Phone: [facility] 10-10-2022 15:05-0500 Systolic blood pressure 111 mm[Hg] SWITCHGEAR REPAIRER Yudelka Lopez Work Phone: [facility] 10-10-2022 13:05-0500 Body temperature 98.3 [degF] SWITCHGEAR REPAIRER Yudelka Lopez Work Phone: [facility] 10-10-2022 13:05-0500 SaO2% (BldA) [Mass fraction] 100 % SWITCHGEAR REPAIRER Yudelka Lopez Work Phone: [facility] 10-03-2022 10:46-0500 Body weight 72.41 kg SWITCHGEAR REPAIRER Yudelka Lopez Work Phone: [facility] 10-03-2022 10:33-0500 Body height 157.48 cm SWITCHGEAR REPAIRER Yudelka Lopez Work Phone: [facility] 09-21-2022 14:02-0500 Diastolic blood pressure 54 mm[Hg] SWITCHGEAR REPAIRER Yudelka Lopez Work Phone: [facility] 09-21-2022 14:02-0500 Heart rate 72 /min SWITCHGEAR REPAIRER Yudelka Lopez Work Phone: [facility] 09-21-2022 14:02-0500 Respiratory rate 18 /min SWITCHGEAR REPAIRER Yudelka Lopez Work Phone: [facility] 09-21-2022 14:02-0500 SaO2% (BldA) [Mass fraction] 100 % SWITCHGEAR REPAIRER Yudelka Lopez Work Phone: [facility] 09-21-2022 14:02-0500 Systolic blood pressure 105 mm[Hg] SWITCHGEAR REPAIRER Yudelka Lopez Work Phone: [facility] 09-21-2022 12:05-0500 Body height 157.48 cm SWITCHGEAR REPAIRER Yudelka Lopez Work Phone: [facility] 09-21-2022 12:05-0500 Body temperature 98.2 [degF] SWITCHGEAR REPAIRER Yudelka Lopez Work Phone: [facility] 09-21-2022 12:05-0500 Body weight 71.6 kg SWITCHGEAR REPAIRER Yudelka Lopez Work Phone: [facility] 07-04-2022 20:47-0400 Body temperature 98.2 [degF] SWITCHGEAR REPAIRER Yudelka Lopez Work Phone: [facility] 07-04-2022 20:47-0400 Diastolic blood pressure 72 mm[Hg] SWITCHGEAR REPAIRER Yudelka Lopez Work Phone: [facility] 07-04-2022 20:47-0400 Heart rate 83 /min SWITCHGEAR REPAIRER Yudelka Lopez Work Phone: [facility] 07-04-2022 20:47-0400 Respiratory rate 18 /min SWITCHGEAR REPAIRER Yudelka Lopez Work Phone: [facility] 07-04-2022 20:47-0400 SaO2% (BldA) [Mass fraction] 99 % SWITCHGEAR REPAIRER Yudelka Lopez Work Phone: [facility] 07-04-2022 20:47-0400 Systolic blood pressure 119 mm[Hg] SWITCHGEAR REPAIRER Yudelka Lopez Work Phone: [facility] 07-04-2022 18:45-0400 Body height 160.02 cm SWITCHGEAR REPAIRERFamilia Lopez Work Phone: [facility] 07-04-2022 18:45-0400 Body weight 73.6 kg BETTY Lopez Work Phone: [facility] 06-01-2022 02:30-0400 Diastolic blood pressure 85 mm[Hg] SWITCHGEAR REPAIRERFamilia Lopez Work Phone: [facility] 06-01-2022 02:30-0400 Heart rate 71 /min SWITCHGEAR REPAIRERFamilia Lopez Work Phone: [facility] 06-01-2022 02:30-0400 Respiratory rate 16 /min BETTY Lopez Work Phone: [facility] 06-01-2022 02:30-0400 SaO2% (BldA) [Mass fraction] 100 % SWITCHGEAR REPAIRERFamilia Lopez Work Phone: [facility] 06-01-2022 02:30-0400 Systolic blood pressure 111 mm[Hg] BETTY Lopez Work Phone: [facility] 06-01-2022 01:29-0400 Body height 160.02 cm BETTY Lopez Work Phone: [facility] 06-01-2022 01:29-0400 Body temperature 98 [degF] SWITCHGEAR REPAIRER Yudelka Lopez Work Phone: [facility] 06-01-2022 01:29-0400 Body weight 73.48 kg BETTY Lopez Work Phone: [facility] 04-07-2022 12:02-0400 Body height 157.81 cm [...] 04-05-2022 00:01-0400 Diastolic blood pressure 63 mm[Hg] SWITCHGEAR REPAIRERFamilia Lopez Work Phone: [facility] 04-05-2022 00:01-0400 Heart rate 59 /min BETTY Lopez Work Phone: [facility] 04-05-2022 00:01-0400 Respiratory rate 20 /min SWITCHGEAR REPAIRERFamilia Lopez Work Phone: [facility] 04-05-2022 00:01-0400 SaO2% (BldA) [Mass fraction] 100 % SWITCHGEAR REPAIRERFamilia Lopez Work Phone: [facility] 04-05-2022 00:01-0400 Systolic blood pressure 117 mm[Hg] BETTY Lopez Work Phone: [facility] 04-04-2022 17:01-0400 Body height 157.48 cm SWITCHGEAR REPAIRERFamilia Lopez Work Phone: [facility] 04-04-2022 17:01-0400 Body mass index (BMI) [Ratio] 30.4 kg/m2 BETTY Lopez Work Phone: [facility] 04-04-2022 17:01-0400 Body temperature 98.7 [degF] BETTY Lopez Work Phone: [facility] 04-04-2022 17:01-0400 Body weight 75.6 kg BETTY Lopez Work Phone: [facility] 03-24-2022 11:38-0400 Body height 157.81 cm Unknown Unknown VS-Ugipgwrgt-Toy dman Work Phone: 03-24-2022 11:38-0400 Body mass index (BMI) [Ratio] 30.08 kg/m2 Unknown Unknown FK-Pkfpcccdn-Vwcmqhm Work Phone: 03-24-2022 11:38-0400 Body surface area Derived from formula 1.76 m2 Unknown Unknown ZE-Vcuawqzox-Joojeun Work Phone: 03-24-2022 11:38-0400 Body temperature 98.24 [degF] Unknown Unknown HJ-Wzzzwazkh-Rr idman Work Phone: 03-24-2022 11:38-0400 Body weight 74.9 kg Unknown Unknown EV-Zcvngadpa-Wif dman Work Phone: 03-24-2022 11:38-0400 Diastolic blood pressure 78 mm[Hg] Unknown Unknown QC-Futpzexlh-Nlocbff Work Phone: 03-24-2022 11:38-0400 Heart rate 82 /min Unknown Unknown JA-Egdeeoski-Yfh dman Work Phone: 03-24-2022 11:38-0400 Respiratory rate 16 /min Unknown Unknown MK-Mvpxxtetv-Nv idman Work Phone: 03-24-2022 11:38-0400 SaO2% (BldA) [Mass fraction] 100 % Unknown Unknown WD-Vxgttvndn-Qytkhno Work Phone: 03-24-2022 11:38-0400 Systolic blood pressure 130 mm[Hg] Unknown Unknown AL-Nxajfwiig-Rrhxnml Work Phone: 03-24-2022 11:38-0400 6 1 Unknown Unknown PQ-Qctaeseew-Kck dman Work Phone: Comment on above: [employer] 03-15-2022 21:05-0400 Diastolic blood pressure 67 mm[Hg] SWITCHGEAR REPAIRERFamilia Lopez Work Phone: [facility] 03-15-2022 21:05-0400 Heart rate 72 /min SWITCHGEAR REPAIRER Yudelka Lopez Work Phone: [facility] 03-15-2022 21:05-0400 Respiratory rate 18 /min SWITCHGEAR REPAIRER Yudelka Lopez Work Phone: [facility] 03-15-2022 21:05-0400 SaO2% (BldA) [Mass fraction] 100 % BETTY Lopez Work Phone: [facility] 03-15-2022 21:05-0400 Systolic blood pressure 127 mm[Hg] SWITCHGEAR REPAIRER Yudelka Lopez Work Phone: [facility] 03-15-2022 19:22-0400 Body height 157.48 cm SWITCHGEAR REPAIRER Yudelka Lopez Work Phone: [facility] 03-15-2022 19:22-0400 Body mass index (BMI) [Ratio] 30.9 kg/m2 SWITCHGEAR REPAIRER Yudelka Lopez Work Phone: [facility] 03-15-2022 19:22-0400 Body temperature 98.6 [degF] SWITCHGEAR REPAIRER Yudelka Lopez Work Phone: [facility] 03-15-2022 19:22-0400 Body weight 76.7 kg SWITCHGEAR REPAIRER Yudelka Lopez Work Phone: [facility] 03-04-2022 01:04-0400 Body height 157.48 cm SWITCHGEAR REPAIRER Yudelka Lopez Work Phone: [facility] 03-04-2022 01:04-0400 Body mass index (BMI) [Ratio] 30.4 kg/m2 SWITCHGEAR REPAIRER Yudelka Lopez Work Phone: [facility] 03-04-2022 01:04-0400 Body weight 75.55 kg SWITCHGEAR REPAIRERFamilia Lopez Work Phone: [facility] 03-04-2022 01:01-0400 Body temperature 98.1 [degF] SWITCHGEAR REPAIRER Yudleka Lopez Work Phone: [facility] 03-04-2022 01:01-0400 Diastolic blood pressure 80 mm[Hg] SWITCHGEAR REPAIRER Yudelka Lopez Work Phone: [facility] 03-04-2022 01:01-0400 Heart rate 81 /min SWITCHGEAR REPAIRER Yudelka Lopez Work Phone: [facility] 03-04-2022 01:01-0400 Respiratory rate 18 /min SWITCHGEAR REPAIRER Yudelka Lopez Work Phone: [facility] 03-04-2022 01:01-0400 SaO2% (BldA) [Mass fraction] 97 % SWITCHGEAR REPAIRER Yudleka Lopez Work Phone: [facility] 03-04-2022 01:01-0400 Systolic blood pressure 129 mm[Hg] BETTY Lopez Work Phone: [facility] Encounters Encounter Date Encounter Type Care Provider Facility Start: 06-10-2025 ambulatory PHYSICIAN NO FAMILY Fac ility:[facility] Start: 05-22-2025 Registered Recurring Kelly Hough SWITCHGEAR REPAIRER -[facility] Work Phone: Start: 05-22-2025 End: 05-22-2025 ambulatory NON STAFF [facility] Work Phone: Start: 05-22-2025 End: 05-22-2025 Patient encounter procedure Marcelle Taylor 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 [facility] Work Phone: Start: 05-21-2025 End: 05-21-2025 Patient encounter procedure Malcolm Helder DO Work Phone: [facility] Comment on above: Encounter for IUD in sertion Start: 05-21-2025 End: 05-21-2025 ambulatory MALCOLM HELDER Not Available Start: 05-13-2025 End: 05-13-2025 care visit Priscilla SRIVASTAVA Work Phone: [facility] Comment on above: 6 weeks f ollow-up ([facility]); Post depression ; Mood disorder ; depression Start: 05-13-2025 End: 05-13-2025 ambulatory PRISCILLA WARREN Not Available Start: 05-06-2025 End: 05-06-2025 Emergency department patient visit DO Ramiro SJorge Jovana Facility:[facility] Start: 05-05-2025 End: 05-05-2025 Emergency department patient visit Malcolm Helder DO Work Phone: -Emergency Room Work Phone: Start: 04-20-2025 End: 04-20-2025 Office outpatient new 30 minutes Gabino Blandon DPM Work Phone: [facility] Comment on above: Venous insufficiency (Primary Dx) Start: 04-20-2025 End: 04-20-2025 ambulatory GABINO BLANDON Not Available Start: 04-20-2025 End: 04-20-2025 Bamboo flowsheet Gabino Blandon DPM Work Phone: [facility] Start: 04-20-2025 End: 04-20-2025 Bamboo flowsheet Gabino Blandon DPM Work Phone: [facility] Start: 04-01-2025 End: 04-01-2025 Bamboo flowsheet Priscilla SRIVASTAVA Work Phone: [facility] Start: 04-01-2025 End: 04-01-2025 Bamboo flowsheet Priscilla SRIVASTAVA Work Phone: [facility] Start: 04-01-2025 End: 04-01-2025 Postop follow up visit related to original px Priscilla SRIVASTAVA Work Phone: [facility] Comment on above: Status post section Start: 04-01-2025 End: 04-01-2025 ambulatory PRISCILLA WARREN Not Available Start: 03-26-2025 End: 03-26-2025 Clinisync Result Encounter Malcolm Helder DO Work Phone: [facility] Unsolicited Start: 03-26-2025 End: 03-26-2025 Clinisync Result Encounter Malcolm Helder DO Work Phone: [facility] Unsolicited Start: 03-25-2025 End: 03-25-2025 Clinisync Result Encounter Malcolm Helder DO Work Phone: [facility] Unsolicited Start: 03-25-2025 End: 03-25-2025 Clinisync Result Encounter Malcolm Helder DO Work Phone: [facility] Unsolicited Start: 03-25-2025 End: 03-25-2025 ambulatory PHYSICIAN [facility] Work Phone: Start: 03-25-2025 End: 03-25-2025 Departed Referred Malcolm Helder -[facility] Start: 03-19-2025 End: 03-19-2025 Clinisync Result Encounter Malcolm Helder DO Work Phone: [facility] Unsolicited Start: 03-19-2025 End: 03-19-2025 Clinisync Result Encounter Malcolm Helder DO Work Phone: [facility] Unsolicited Start: 03-17-2025 End: 03-17-2025 Bamboo flowsheet Priscilla SRIVASTAVA Work Phone: [facility] Start: 03-17-2025 End: 03-17-2025 Bamboo flowsheet Priscilla SRIVASTAVA Work Phone: [facility] Start: 03-17-2025 End: 03-17-2025 flow sheet Priscilla SRIVASTAVA Work Phone: [facility] Comment on above: Third trimester preg brandon ([facility]); 37 weeks gestation of ([facility]); HSV (herpes simplex virus) infection; Anemia, unspecified type; Alpha thalassemia silent carrier; Pre-eclampsia in third trimester ([facility]) Start: 03-17-2025 End: 03-17-2025 ambulatory PRISCILLA WARREN Not Available Start: 03-12-2025 End: 03-12-2025 Clinisync Result Encounter Malcolm Helder DO Work Phone: [facility] Unsolicited Start: 03-12-2025 End: 03-12-2025 Clinisync Result Encounter Malcolm Helder DO Work Phone: [facility] Unsolicited Start: 03-10-2025 End: 03-10-2025 Bamboo flowsheet Malcolm Helder DO Work Phone: [facility] Start: 03-10-2025 End: 03-10-2025 Bamboo flowsheet Malcolm Heldre DO Work Phone: [facility] Start: 03-10-2025 End: 03-10-2025 flow sheet Malcolm Helder DO Work Phone: [facility] Comment on above: Third trimester preg brandon ([facility]) Start: 03-10-2025 End: 03-10-2025 ambulatory MALCOLM HELDER Not Available Start: 03-05-2025 End: 03-05-2025 Clinisync Result Encounter Malcolm Helder DO Work Phone: [facility] Unsolicited Start: 03-05-2025 End: 03-05-2025 Clinisync Result Encounter Malcolm Helder DO Work Phone: [facility] Unsolicited Start: 02-26-2025 End: 02-26-2025 Clinisync Result Encounter Malcolm Helder DO Work Phone: [facility] Unsolicited Start: 02-26-2025 End: 02-26-2025 Clinisync Result Encounter Malcolm Helder DO Work Phone: [facility] Unsolicited Start: 02-26-2025 End: 02-26-2025 Telephone encounter Caroline Chavira RN Maternal- Medic ine at [facility] Start: 02-24-2025 End: 02-24-2025 Bamboo flowsheet Malcolm Helder DO Work Phone: [facility] Start: 02-24-2025 End: 02-24-2025 Bamboo flowsheet Malcolm Helder DO Work Phone: [facility] Start: 02-24-2025 End: 02-24-2025 ambulatory MALCOLM HELDER Not Available Start: 02-24-2025 End: 02-24-2025 Office outpatient visit 15 minutes Malcolm Helder DO Work Phone: [facility] Comment on above: 34 weeks gestation o f ; Third trimester Start: 02-20-2025 End: 02-25-2025 Telephone encounter Mary Cruz MA [facility] Start: 02-19-2025 End: 02-19-2025 Clinisync Result Encounter Malcolm Helder DO Work Phone: [facility] Unsolicited Start: 02-19-2025 End: 02-19-2025 Clinisync Result Encounter Malcolm Helder DO Work [...] Start: 02-04-2025 End: 02-04-2025 Telephone encounter Josey Valentine Maternal Medic [facility] Start: 02-01-2025 End: 02-01-2025 Emergency department patient visit PHYSICIAN NO FAMILY -Emergency Room Work Phone: Start: 02-01-2025 End: 02-01-2025 Patient encounter procedure Luisa Rincon SWITCHGEAR REPAIRER -[facility] [employer] Work Phone: Start: 01-28-2025 End: 01-28-2025 External Result Encounter Priscilla SRIVASTAVA Work Phone: [facility] Unsolicited Start: 01-28-2025 End: 01-28-2025 External Result Encounter Priscilla SRIVASTAVA Work Phone: [facility] Unsolicited Start: 01-28-2025 End: 01-28-2025 Telephone encounter Josey Valentine Maternal Medic [facility] Comment on above: Thalassemia alpha ca rrier (Primary Dx); Family history of sickle cell trait; Family history of DVT; History of anemia; Choroid plexus cyst of fetus affecting care of mother, antepartum, fetus 1; Abnormal genetic test during ; Previous delivery affecting , antepartum; History of pre-eclampsia in prior , currently in first trimester Start: 01-28-2025 End: 01-28-2025 Patient encounter procedure Yudelka John HERNÁNDEZ Work Phone: [facility] [place] Work Phone: Start: 01-28-2025 End: 01-28-2025 ambulatory Yudelka Paulino John HERNÁNDEZ Work Phone: [facility] Work Phone: Start: 01-27-2025 End: 01-27-2025 Bamboo flowsheet Malcolm Helder DO Work Phone: [facility] Start: 01-27-2025 End: 01-27-2025 Bamboo flowsheet Malcolm Helder DO Work Phone: [facility] Start: 01-27-2025 End: 01-27-2025 ambulatory MALCOLM R HELDER [facility] Start: 01-27-2025 End: 01-27-2025 flow sheet [...] 01-14-2025 End: 01-15-2025 Bamboo flowsheet Reynold Leslie CONTROL BOARD OPERATOR Work Phone: [facility] Start: 01-14-2025 End: 01-15-2025 External Result Encounter Malcolm Helder DO Work Phone: [facility] External [facility] Unsolicited Start: 01-14-2025 End: 01-14-2025 flow sheet Reynold Mariama CONTROL BOARD OPERATOR Work Phone: [facility] Comment on above: Third trimester preg brandon; 28 weeks gestation of Start: 01-14-2025 End: 01-14-2025 ambulatory REYNOLD MARIAMA Not Available Start: 01-13-2025 End: 01-13-2025 ambulatory MALCOLM R HELDER [facility] Start: 01-08-2025 End: 01-08-2025 Clinisync Result [...] Start: 12-30-2024 End: 12-30-2024 flow sheet Malcolm Pendleton DO Work Phone: [facility] Comment on above: Second trimester pre gnancy; 26 weeks gestation of ; Seen in emergency room; Exposure to STD; HSV (herpes simplex virus) infection Start: 12-30-2024 End: 12-30-2024 ambulatory MALCOLM PENDLETON Not Available Start: 12-16-2024 End: 12-16-2024 ambulatory MALCOLM LAMASO [facility] Start: 12-12-2024 End: 12-12-2024 Telemedicine consultation with patient Henny Montgomery MD Work Phone: [facility]- [facility] Comment on above: Thalassemia alpha ca rrier (Primary Dx); Abnormal genetic test during ; Family history of sickle cell trait; Family history of DVT Start: 12-12-2024 End: 12-12-2024 ambulatory MALCOLM PENDLETON [facility] Start: 12-09-2024 End: 12-09-2024 Orders Only Natalie Díaz RN Maternal- Medic ine at [facility] Comment on above: Thalassemia alpha ca rrier (Primary Dx) Start: 12-08-2024 End: 12-08-2024 Documentation procedure Henny Montgomery MD Work Phone: [facility] Start: 12-08-2024 End: 12-08-2024 Telephone encounter Josey Valentine M[facility]- Medic [facility] at [facility] Start: 12-02-2024 End: 12-02-2024 ambulatory PRISCILLA WARREN Not Available Start: 11-21-2024 End: 11-21-2024 Office consultation new/estab patient 60 min Henny Montgomery MD Work Phone: [facility] Comment on above: Previous de livery affecting , antepartum (Primary Dx); History of pre-eclampsia in prior , currently in first trimester; History of anemia; Choroid plexus cyst of fetus affecting care of mother, antepartum, fetus 1 Start: 11-21-2024 End: 11-21-2024 Orders Only Priscilla Meliza CONTRACT NEGOTIATOR M[facility]- Medic [facility] at [facility] Comment on above: History of anemia (P rimary Dx) Start: 11-18-2024 End: 11-18-2024 Bamboo flowsheet Naresh A Felter SWITCHGEAR REPAIRER-AIRPLANE WOODWORKER Work Phone: [facility] Start: 11-18-2024 End: 11-18-2024 Bamboo flowsheet Naresh A Felter SWITCHGEAR REPAIRER-AIRPLANE WOODWORKER Work Phone: [facility] Start: 11-18-2024 End: 11-18-2024 Office outpatient visit 15 minutes Naresh A Felter SWITCHGEAR REPAIRER-AIRPLANE WOODWORKER Work Phone: [facility] Comment on above: Acne vulgaris (Prima ry Dx); Other atopic dermatitis Start: 11-18-2024 End: 11-18-2024 ambulatory NARESH A FELTER Not Available Start: 11-10-2024 Registered Recurring Yudelka Bobo chaz SWITCHGEAR REPAIRER [facility] Work [facility]: Start: 11-10-2024 End: 11-10-2024 ambulatory Yudelka Lopez SWITCHGEAR REPAIRER Work Phone: [facility] Work Phone: Start: 11-10-2024 End: 11-10-2024 Patient encounter procedure Yudelka Lopez SWITCHGEAR REPAIRER Work Phone: [facility] Work Phone: Start: 11-07-2024 End: 11-07-2024 External Result Encounter Kelly Hough CONTROL BOARD OPERATOR Other Phone: [facility] External Department Unsolicited Start: 11-07-2024 End: 11-07-2024 External Result Encounter Kelly Hough CONTROL BOARD OPERATOR Other Phone: [facility] External Department Unsolicited Start: 11-04-2024 End: 11-04-2024 Patient encounter procedure Malcolm Pendleton DO Work Phone: [facility] Comment on above: 18 weeks gestation o f ; LGSIL of cervix of undetermined significance; Other headache syndrome; Mood disorder ([facility]) Start: 11-04-2024 End: 11-04-2024 ambulatory MALCOLM HELDER Not Available Start: 10-14-2024 End: 10-14-2024 Bamboo flowsheet Priscilla SRIVASTAVA Work Phone: [facility] Start: 10-14-2024 End: 10-20-2024 Bamboo flowsheet Priscilla SRIVASTAVA Work Phone: [facility] Start: 10-14-2024 End: 10-20-2024 Clinisync Result Encounter Priscilla SRIVASTAVA Work Phone: [facility] External Department Unsolicited Start: 10-14-2024 End: 10-14-2024 Patient encounter procedure Priscilla SRIVASTAVA Work Phone: [facility] Healthcare Start: 10-14-2024 End: 10-14-2024 Periodic preventive med est patient 18-39 yrs Priscilla SRIVASTAVA Work Phone: [facility] Comment on above: 15 weeks gestation o f ; Second trimester ; Well woman exam with routine gynecological exam; Screening, , for anatomic survey; STD exposure; Vaginal discharge Start: 10-14-2024 End: 10-14-2024 ambulatory PRISCILLA WARREN Not Available Start: 09-11-2024 End: 09-11-2024 Bamboo flowsheet Malcolm Helder DO Work Phone: [facility] Start: 09-11-2024 End: 09-11-2024 Bamboo flowsheet Malcolm Helder DO Work Phone: [facility] Start: 09-11-2024 End: 09-11-2024 Clinisync Result Encounter Malcolm Helder DO Work Phone: [facility] External Department Unsolicited Start: 09-11-2024 End: 09-11-2024 ambulatory Malcolm Helder Facility:[facility] Start: 09-11-2024 End: 09-11-2024 Departed Referred Yudelka Lopez APRN Work Phone: [facility] Start: 09-11-2024 End: 09-11-2024 flow sheet Malcolm Helder DO Work Phone: [facility] Comment on above: 10 weeks gestation o f ; First trimester ; Other headache syndrome; Nausea and vomiting during ; Thyroid disease affecting ([facility]) Start: 09-11-2024 End: 09-11-2024 ambulatory MALCOLM HELDER Not Available Start: 08-26-2024 End: 08-26-2024 Office outpatient visit 5 minutes [facility] Helder Nurse [facility] Comment on above: GA: 8w2d Start: 08-26-2024 End: 08-26-2024 ambulatory PRISCILLA WARREN Not Available Start: 08-06-2024 End: 08-08-2024 Evaluation and management of inpatient Yudelka Lopez APRN Work Phone: [facility] Work Phone: Start: 08-06-2024 ambulatory Julián Naqvi Facility:[facility] Start: 08-04-2024 End: 08-04-2024 Clinisync Result [...] department patient visit BETTY Lopez Work Phone: [facility] Work Phone: Start: 07-14-2024 End: 07-14-2024 ambulatory [facility] Work Phone: Start: 07-14-2024 End: 07-14-2024 Patient encounter procedure [facility] Work Phone: Start: 02-21-2024 End: 02-21-2024 Emergency department patient visit [facility] - [place] Start: 02-21-2024 Encounter for gynecological examination (general) (routine) without abnormal findings [facility] [place] Start: 12-10-2023 End: 12-10-2023 Patient encounter procedure Manas Simental [facility] Start: 09-28-2023 End: 09-28-2023 ambulatory SWITCHGEAR REPAIRER Yudelka Lopez Work Phone: [facility] Work Phone: Start: 09-28-2023 End: 09-28-2023 Registered Recurring SWITCHGEAR REPAIRERFamilia Lopez Work Phone: [facility] Work Phone: Start: 09-27-2023 End: 09-27-2023 ambulatory SWITCHGEAR REPAIRER Yudelka Lopez Work Phone: [facility] Work Phone: Start: 09-27-2023 End: 09-27-2023 Departed Referred SWITCHGEAR REPAIRERFamilia Lopez Work Phone: [facility] Start: 09-27-2023 Registered Recurring BETTY Lopez Work Phone: [facility] Work Phone: Start: 06-27-2023 End: 06-27-2023 ambulatory SWITCHGEAR REPAIRER Yudelka Lopez Work Phone: [facility] Work Phone: Start: 06-27-2023 End: 06-27-2023 Registered Recurring BETTY Lopez [facility]: [facility] Work [facility]: Start: 06-14-2023 Registered Recurring BETTY east Lopez Work Phone: [facility] Work Phone: Start: 06-14-2023 End: 06-14-2023 ambulatory SWITCHGEAR REPAIRER Yudelka Lora Lopez Work Phone: [facility] Work Phone: Start: 06-14-2023 End: 06-14-2023 Patient encounter procedure SWITCHGEAR REPAIRER Yudelka Lopez Work Phone: [facility] [place] Work Phone: Start: 06-04-2023 End: 06-04-2023 ambulatory Marvin Fontenot Other [place] [employer] Other Start: 06-04-2023 Office outpatient visit 15 minutes Marvin Fontenot [facility] Start: 04-24-2023 End: 04-24-2023 Patient encounter procedure Lex Elizabeth [facility] [place] Start: 03-21-2023 End: 03-21-2023 ambulatory SWITCHGEAR REPAIRER Yudelka Griffinalbino Lopez Work Phone: [facility] Work Phone: Start: 03-21-2023 End: 03-21-2023 Registered Recurring SWITCHGEAR REPAIRERFamilia Lopez Work Phone: [facility] [place] Work Phone: Start: 03-14-2023 End: 03-14-2023 ambulatory SWITCHGEAR REPAIRER Yudelka Lora Lopez Work Phone: [facility] Work Phone: Start: 03-14-2023 End: 03-14-2023 Patient encounter procedure BETTY Lopez Work Phone: [facility] [place] Work Phone: Start: 02-07-2023 Registered Recurring BETTY Lopez Work Phone: [facility] Work Phone: Start: 02-06-2023 End: 02-06-2023 Emergency department patient visit BETTY Lopez Work Phone: [facility] Work Phone: Start: 01-29-2023 End: 01-29-2023 ambulatory SWITCHGEAR REPAIRERFamilia Lopez Work Phone: [facility] Work Phone: Start: 01-29-2023 End: 01-29-2023 Patient encounter procedure SWITCHGEAR REPAIRERFamilia Lopez Work Phone: [facility] [place] Work Phone: Start: 01-25-2023 Registered Recurring BETTY Lopez Work Phone: [facility] Work Phone: Start: 01-24-2023 End: 01-24-2023 ambulatory BETTY Lopez Work Phone: [facility] Work Phone: Start: 01-24-2023 End: 01-24-2023 Discharged Recurring SWITCHGEAR REPAIRERFamilia Jha John Work Phone: [facility] [address] Start: 12-25-2022 End: 12-25-2022 ambulatory SWITCHGEAR REPAIRER Yudelka Lopez Work Phone: [facility] Work Phone: Start: 12-25-2022 End: 12-25-2022 Patient encounter procedure SWITCHGEAR REPAIRERFamilia Jha Lopez Work Phone: [facility] [place] Work Phone: Start: 12-25-2022 Registered Recurring BETTY Lopez Work Phone: [facility] [address] Start: 12-22-2022 End: 12-22-2022 ambulatory Imad Asaad Other [employer] Other Start: 12-22-2022 Telephone encounter Imad Asaad [facility] Start: 12-21-2022 End: 12-21-2022 ambulatory Imad Asaad Other [employer] Other Start: 12-21-2022 [facility] visit new patient Imad Asaad [facility] Start: 12-07-2022 End: 12-07-[address] DOCTOR MARI Facility:[facility]1 Start: 11-29-2022 End: 11-30-[address] MALCOLM PENDLETON . Facility:[facility]1 Start: 11-28-2022 End: 11-28-2022 Emergency department patient visit BETTY Lopez Work Phone: [facility] Work Phone: Start: 11-01-2022 Registered Recurring BETTY Lopez Work Phone: [facility] Work Phone: Start: 10-12-2022 End: 10-12-2022 ambulatory BETTY Lopez Work Phone: [facility] Work Phone: Start: 10-12-2022 End: 10-12-2022 Patient encounter procedure BETTY Lopez Work Phone: [facility] [place] Work Phone: Start: 10-10-2022 Registered Recurring BETTY Lopez Work Phone: [facility] Work Phone: Start: 10-02-2022 End: 10-02-2022 ambulatory BETTY Lopez Work Phone: [facility] Work Phone: Start: 10-02-2022 End: 10-02-2022 Patient encounter procedure BETTY Lopez Work Phone: [facility] [place] Work Phone: Start: 09-21-2022 End: 09-21-2022 Emergency department patient visit BETTY Lopez Work Phone: [facility] Work Phone: Start: 09-15-2022 End: 09-15-2022 ambulatory BETTY Lopez Work Phone: [facility] Work Phone: Start: 09-15-2022 End: 09-15-2022 Patient encounter procedure BETTY Lopez Work Phone: [facility] [place] Work Phone: Start: 08-05-2022 End: 08-06-[address] MALCOLM PENDLETON . Facility:[facility]1 Start: 07-28-2022 End: 07-29-[address] MALCOLM PENDLETON . Facility:[facility] Start: 07-04-2022 End: 07-04-2022 Emergency department patient visit BETTY Lopez Work Phone: [facility] Start: 07-03-2022 End: 07-03-[address] MALCOLM PENDLETON . Facility:[facility] Start: 06-01-2022 End: 06-01-2022 Emergency department patient visit BETTY Lopez Work Phone: [facility] Start: 04-21-2022 Patient encounter procedure Yudelka Lopez Work Phone: [facility] Work Phone: Start: 04-21-2022 Postop follow up vis it related to original px Yudelka Lopez Work Phone: [facility] Work Phone: Start: 04-18-2022 End: 04-19-[address] DOCTOR MARI Facility:[facility]1 Start: 04-17-2022 Chart Update Yudelka Lopez Work Phone: [facility] Work Phone: Start: 04-14-2022 End: 04-14-2022 Departed Referred SWITCHGEAR REPAIRER Yudelka Lopez Work Phone: [facility] Start: 04-11-2022 End: 04-11-[address] REBECCA GALVEZ Facility:[facility]1 Start: 04-07-2022 Postop follow up vis it related to original px Yudelka Lopez Work Phone: [facility] Work Phone: Start: 04-04-2022 End: 04-05-2022 Emergency department patient visit SWITCHGEAR REPAIRER Yudelka Lopez Work Phone: [facility] Start: 04-04-2022 AUDIT Yudelka Lopez Work Phone: [facility] Work Phone: Start: 03-31-2022 End: 03-31-2022 Patient encounter procedure BETTY Lopez Work Phone: [facility] Testing Start: 03-24-2022 Patient encounter procedure Unknown Unknown [facility]-Hrzpfjbho-Jdzsgna Work Phone: Start: 03-15-2022 End: 03-15-2022 Emergency department patient visit SWITCHGEAR REPAIRER Yudelka Lopez Work Phone: [facility] Start: 03-04-2022 End: 03-04-2022 Emergency department patient visit SWITCHGEAR REPAIRER Yudelka Lopez Work Phone: [facility] Start: 02-20-2022 End: 02-20-[address] ALFIE MATTHEWS Facility:[facility]1 Start: 02-02-2022 End: 02-03-[address] ALFIE MATTHEWS Facility:[facility]1 Start: 01-11-2022 End: 01-12-[address] ALFIE MATTHEWS Facility:[facility]1 Procedures Date Procedure Procedure Detail Performing Clinician Start: 05-21-2025 Urine test visual color cmprsn meths Malcolm Helder DO Work Phone: Start: 05-21-2025 Insertion intrauterine device iud Malcolm Helder DO Work Phone: Start: 05-05-2025 Plain chest X-ray Malcolm Helder DO Work Phone: Start: 03-26-2025 ALL CBC WITH AUTO DIFF Malcolm Helder DO Work Phone: Start: 03-25-2025 ALL CBC WITH AUTO DIFF Malcolm Helder DO Work Phone: Start: 03-19-2025 US OB BPP W NON-STRESS Malcolm Helder DO Work Phone: Start: 03-17-2025 Urnls dip stick/tablet rgnt non-auto w/o micrscp Priscilla SRIVASTAVA Work Phone: Start: 03-12-2025 US OB BPP W NON-STRESS Malcolm Helder DO Work Phone: Start: 03-05-2025 US OB BPP W NON-STRESS Malcolm Helder DO Work Phone: Start: 02-26-2025 US OB BPP W NON-STRESS Malcolm Helder DO Work Phone: Start: 02-24-2025 Urnls dip stick/tablet rgnt non-auto w/o micrscp Malcolm Helder DO Work Phone: Start: 02-19-2025 US OB BPP W NON-STRESS Malcolm Helder DO Work Phone: Start: 02-12-2025 US OB BPP W NON-STRESS Malcolm Helder DO Work Phone: Start: 02-11-2025 Urnls dip stick/tablet rgnt non-auto w/o micrscp Priscilla SRIVASTAVA Work Phone: Start: 02-01-2025 Quick Strep (POC) PHYSICIAN NO FAMILY Start: 02-01-2025 Respiratory Panel (PCR) PHYSICIAN NO FAMILY Start: 02-01-2025 Streptococcus pyogenes antigen assay PHYSICIAN NO FAMILY Start: 01-14-2025 RECURRENT VAGINITIS (HTRX) Malcolm Helder D O Work Phone: Start: 01-14-2025 Urnls dip stick/tablet rgnt non-auto w/o micrscp Reynold Leslie CONTROL BOARD OPERATOR Work Phone: Start: 01-08-2025 ALL CBC WITH AUTO DIFF Malcolm Helder DO Work Phone: Start: 01-06-2025 ALL CBC WITH AUTO DIFF Priscilla SRIVASTAVA Work Phone: Start: 12-30-2024 RECURRENT VAGINITIS (HTRX) Malcolm Helder D O Work Phone: Start: 11-07-2024 Complete blood count with white cell differential, automated Kelly Hough CONTROL BOARD OPERATOR Other Phone: Start: 11-04-2024 Urnls dip stick/tablet [...] Start: 07-14-2024 SARS-CoV-2, Influenza & RSV (PCR) SWITCHGEAR REPAIRER Rowan Lopez Work Phone: Start: 07-14-2024 Viral nucleic acid assay Yudelka Lopez AP RN Work Phone: Start: 07-14-2024 Computed tomography of abdomen and pelvis with contrast BETTY Lopez Work Phone: Start: 03-14-2023 MRI of cervical spine without contrast SWITCHGEAR REPAIRERFamilia Lopez Work Phone: Start: 01-29-2023 Radionuclide gastric emptying study SWITCHGEAR REPAIRERFamilia Lopez Work Phone: Start: 11-28-2022 X-ray of left foot SWITCHGEAR REPAIRERFamilia Lopez Work Phone: Start: 10-02-2022 US scan [...] Phone: Start: 04-04-2022 CT angiography of thorax SWITCHGEAR REPAIRER Yudelka Decker shy Work Phone: Start: 04-04-2022 Plain chest X-ray [...] esarean delivery affecting , antepartum Marci Coppola CLINICAL SCIENCE LIAISON H/O: section Status pos t section Priscilla SRIVASTAVA Work Phone: None (qualifier value) Lex Elizabeth Plan of Treatment Date Care Activity Detail Author Start: 10-14-2027 Screening for malign ant neoplasm of cervix [facility] [employer] Start: 01-28-2026 End: 01-28-2026 US MFM with [...] first trimester Expected: 01/28/2026 (Approximate), Expires: 01/28/2026 [facility] Work Phone: Comment on above: Expected: 01/28/2026 (Approximate), Expires: 01/28/2026 Start: 01-09-2026 DTaP,Tdap and Td Vac cines (3 - Td or Tdap) DTaP,Tdap and Td Vaccines (3 - Td or Tdap) [facility] Start: 11-21-2025 Adult BMI Screening Adult BMI Screen ing [facility] Start: 11-21-2025 Tobacco Screening Tobacco Screening [facility] Start: 11-19-2025 End: 11-19-2025 Patient encounter procedure [facility] Start: 06-30-2025 End: 06-30-2025 Patient encounter procedure 06/30/2025 11:20 AM EDT Procedure Visit [facility] [address] [facility] [facility] [id number] Malcolm Pendleton, DO [address] [place] [address] [facility] Start: 05-28-2025 End: 05-28-2025 Patient encounter procedure 05/28/2025 9:30 AM EDT Procedure Visit [facility] [address] [facility] [facility] [id number] Malcolm Pendleton, DO [address] [place] [address] [facility] Garcia OBBGN Start: 05-18-2025 Influenza vaccination P [facility] Start: 05-13-2025 End: 05-13-2025 ambulatory [facility] Start: 05-05-2025 End: 05-05-2025 [facility] Start: 05-05-2025 Plain chest X-ray XR chest 2V* [facility] Start: 05-05-2025 XR Chest 2 Views [facility] Start: 04-20-2025 End: 04-20-2025 Patient encounter procedure 04/20/2025 3:10 PM EDT Office Visit [facility] [address] [place] [id number] Gabino Blandon DPM [address] [address] Arrived [facility] Comment on above: Arrived Start: 04-01-2025 End: 04-01-2025 Patient encounter procedure 04/01/2025 9:50 AM EDT Office Visit [facility] [address] [address] Priscilla Warren PA [address] [facility] [address] [place], [place] [id number] Arrived [facility] Comment on above: Arrived Start: 03-17-2025 End: 03-17-2025 Patient encounter procedure [facility] Comment on above: Arrived Start: 03-10-2025 End: 03-10-2026 CULTURE, GROUP B STREP WITH SUSCEPTIBLITY CULTURE, GROUP B STREP WITH SUSCEPTIBLITY Lab Routine Third trimester ([facility]) Expected: 03/10/2025, Expires: 03/10/2026 [facility] Work Phone: Comment on above: Expected: 03/10/2025 , Expires: 03/10/2026 Start: 03-10-2025 End: 03-10-2025 Patient encounter procedure [facility] Comment on above: Arrived Start: 02-26-2025 End: 02-26-2025 Patient encounter procedure 02/26/2025 2:15 PM EDT Appointment [facility] [address] [place] [phone] [facility] [place] Start: 02-24-2025 End: 02-24-2025 Patient encounter procedure 02/24/2025 11:40 AM EDT Routine [facility] [address] [facility] [place] [address] Malcolm Pendleton DO [address] [place] [address] [facility] Start: 02-11-2025 End: 02-11-2025 Patient encounter procedure 02/11/2025 3:15 PM EDT Appointment [facility] [place] [address] [facility] [place] [phone] [facility] [place] Start: 02-11-2025 End: 02-11-2025 Patient encounter procedure [facility] Comment on above: Arrived Start: 02-03-2025 End: 02-03-2025 Patient encounter procedure 02/03/2025 9:15 AM EDT Appointment [facility] [address] [place] [address] [facility] Start: 01-27-2025 End: 01-27-2025 Patient encounter procedure 01/27/2025 2:15 PM EDT Appointment [facility] [address] [place] [address] [facility] Start: 01-27-2025 End: 07-30-2025 US biophysical profile w non stress test US biophysical profile w non stress test Imaging Routine H/O pre-eclampsia in prior , currently H/O delivery, currently Expected: 01/27/2025 (Approximate), Expires: 07/30/2025 [facility] Work Phone: Comment on above: Expected: 01/27/2025 (Approximate), Expires: 07/30/2025 Start: 01-27-2025 End: 01-27-2025 Patient encounter procedure [facility] Comment on above: Arrived Start: 01-14-2025 End: 01-14-2025 Patient encounter procedure [facility] Comment on above: Arrived Start: 01-13-2025 End: 01-13-2025 Patient encounter procedure 01/13/2025 9:15 AM EDT Appointment [facility] [address] [place] [address] [facility] Start: 12-30-2024 End: 12-30-2024 Patient encounter procedure [facility] Comment on above: Arrived Start: 12-16-2024 End: 12-16-2024 Patient encounter procedure 12/16/2024 9:15 AM EDT Appointment [facility] [address] [place] [address] [facility] Start: 12-12-2024 End: 12-12-2024 Telemedicine consultation with patient 12/12/2024 9:00 AM EDT Telemedicine Maternal- Medicine at [facility] [address] [place] [address] Henny Montgomery MD [address] [place] [address] Jo Sue, [facility] [address] [place] [address] [facility]- [facility] at [facility] Start: 12-02-2024 End: 12-02-2024 Patient encounter procedure 12/02/2024 9:30 AM EDT Routine [facility] [address] [facility] [phone] Priscilla Warren PA [address] [facility] [place] [address] [facility] Start: 11-21-2024 End: 11-21-2025 US MFM with or without consult US MFM with or without consult Imaging Routine History of anemia Expected: 11/21/2024, Expires: 11/21/2025 [facility] Work Phone: Comment on above: Expected: 11/21/2024 , Expires: 11/21/2025 Start: 11-18-2024 End: 11-18-2024 Patient encounter procedure [facility] Comment on above: Arrived Start: 11-11-2024 End: 11-11-2024 Patient encounter procedure 11/11/2024 11:20 AM EST Routine [facility] [address] [place] [address] Malcolm Pendleton DO [address] [facility] [place] [address] [facility] Start: 11-06-2024 End: 11-06-2024 Patient encounter procedure 11/06/2024 10:55 AM EST Office Visit [facility] [address] [place] [address] Sheldon Naresh Rowan, SWITCHGEAR REPAIRER-AIRPLANE WOODWORKER [address] [place] [address] [facility] Start: 10-14-2024 End: 12-12-2024 Alpha fetoprotein, maternal Alpha fetoprotein, maternal Lab Routine Screening, , for anatomic survey Expected: 10/14/2024 (Approximate), Expires: 12/12/2024 [employer] [facility] Comment on above: Expected: 10/14/2024 (Approximate), [...] AM EST Initial [facility] [address] [facility] [place] [phone] [facility] Start: 08-26-2024 End: 08-26-2024 Professional / ancillary services management 08/26/2024 9:00 AM EST Ancillary Procedure [facility] [address] [facility] [facility] [phone] [facility] Start: 08-07-2024 Hospital admission [facility] Start: 08-07-2024 [facility] Start: 05-18-2024 Influenza vaccination Influenza Vacc ine [facility] Start: 04-23-2024 [facility] Start: 04-04-2024 [facility] Start: 03-31-2024 [facility] Start: 02-22-2024 [facility] Start: 01-30-2024 [facility] Start: 11-05-2023 [facility] Start: 10-10-2023 [facility] Start: 08-07-2023 [facility] Start: 07-24-2023 [facility] Start: 02-07-2023 [facility] Start: 01-31-2023 [facility] Start: 01-26-2023 End: 01-26-2023 [facility] Start: 01-24-2023 End: 01-25-2023 [facility] Start: 11-28-2022 X-ray of left foot XR foot LT min 3V * [facility] Start: 11-28-2022 XR Foot - left GE 3 Views [facility] Start: 11-01-2022 [facility] Start: 10-24-2022 End: 10-25-2022 [facility] Start: 10-17-2022 [facility] Start: 10-13-2022 [facility] Start: 10-12-2022 End: 10-13-2022 [facility] Start: 10-10-2022 [facility] Start: 2022 Screening for malign ant neoplasm of cervix HPV/Cotest [facility] Start: 04-21-2022 POV, Provider: Sly Crocker, Status: Pen, Time: 10:30 AM POV, Provider: Sly Crocker, Status: Pen, Time: 10:30 AM [id number] Work Phone: Start: 2010 Adult BMI Follow Up Plan Adult BMI Follow Up Plan [facility] Start: 2004 [facility] Albumin [Mass/volume ] in Serum or Plasma [facility] Albumin/Globulin ratio [facility] Alpha thalassemia ge ne panel - Blood by Molecular genetics method [facility] Anion gap measurement [facility] Bacteria identified in Urine by Culture Urine culture Microbiology Routine Missed menses Ordered: 08/26/2024 [facility] Comment on above: Ordered: 08/26/2024 Basophils [#/volume] in Blood by Automated count [facility] Basophils/100 leukoc ytes in Blood by Automated count [facility] Calprotectin [Mass/m ass] in Stool [facility] CBC W Auto Different ial panel - Blood CBC and differential Lab Routine Missed menses , unspecified gestational age Ordered: 08/26/2024 [facility] Comment on above: Ordered: 08/26/2024 CHLAMYDIA TRACHOMATI S (GENITO/STI) CHLAMYDIA TRACHOMATIS (GENITO/STI) Lab Routine STD exposure Vaginal discharge Ordered: 10/14/2024 [facility] Comment on above: Ordered: 10/14/2024 Comprehensive metabo lic 1999 panel - Serum or Plasma [facility] Comprehensive metabo lic 1999 panel - Serum or Plasma [facility] Comprehensive metabo lic 1999 panel - Serum or Plasma [facility] Comprehensive metabo lic 1999 panel - Serum or Plasma [facility] Comprehensive metabo lic 1999 panel - Serum or Plasma Comprehensive metabolic panel Lab Routine 11/07/2024 9:38 AM EST [facility] Work Phone: Comprehensive metabo lic 1999 panel - Serum or Plasma [facility] Copper measurement [facility] Cytology Cervical or vaginal smear or scraping study Pap Smear Pathology and Cytology Routine Well woman exam with routine gynecological exam Ordered: 10/14/2024 [facility] Comment on above: Ordered: 10/14/2024 Electrophoresis: [id number] [facility] Electrophoresis: [id number] [facility] Electrophoresis: beta-globulin [facility] Electrophoresis: manohar ma globulin [facility] Endomysial antibody IgA level [facility] Eosinophils/100 leuk ocytes in Blood by Automated count [facility] Erythrocyte distribu tion width [Ratio] by Automated count [facility] Erythrocyte sediment ation rate by Photometric method [facility] Erythrocytes [#/volu me] in Blood [facility] Erythropoietin (EPO) [Units/volume] in Serum or Plasma [facility] Ferritin [Mass/volum e] in Serum or Plasma [facility] Gliadin peptide IgA Ab [Units/volume] in Serum [facility] Gliadin peptide IgG Ab [Units/volume] in Serum [facility] Globulin [Mass/volum e] in Serum [facility] Glomerular filtratio n rate [Volume Rate/Area] in Serum, Plasma or Blood by Creatinine [facility] Hematocrit [Volume Fraction] of Blood [facility] Hemoglobin [Mass/vol ume] in Blood [facility] Hemoglobin A1c/Hemoglobin.total in Blood Hemoglobin A1c Lab Routine Missed menses , unspecified gestational age Ordered: 08/26/2024 [facility] Comment on above: Ordered: 08/26/2024 Hepatitis B virus gallagher rface Ag [Presence] in Serum or Plasma by Immunoassay Hepatitis B surface antigen Lab Routine Missed menses , unspecified gestational age Ordered: 08/26/2024 [facility] Comment on above: Ordered: 08/26/2024 Hepatitis C virus Ab [Presence] in Serum or Plasma by Immunoassay Hepatitis C antibody Lab Routine Missed menses , unspecified gestational age Ordered: 08/26/2024 [facility] Comment on above: Ordered: 08/26/2024 HIV 1+2 Ab+HIV1 p24 Ag [Presence] in Serum or Plasma by Immunoassay [facility] HIV-1/HIV-2 antigen/antibody combination immunoassay HIV-1 and HIV-2 antibodies Lab Routine Missed menses , unspecified gestational age Ordered: 08/26/2024 [facility] Comment on above: Ordered: 08/26/2024 Human papilloma viru s DNA [Presence] in Unspecified specimen by Probe with amplification HPV DNA probe, amplified Microbiology Routine Well woman exam with routine gynecological exam Ordered: 10/14/2024 [facility] Comment on above: Ordered: 10/14/2024 IgA [Mass/volume] in Serum or Plasma [facility] IgA [Mass/volume] in Serum or Plasma [facility] IgG [Mass/volume] in Serum or Plasma [facility] IgM [Mass/volume] in Serum or Plasma [facility] INR in Platelet poor plasma by Coagulation assay [facility] Iron and Iron bindin g capacity panel - Serum or Plasma Iron and TIBC Lab Routine 11/07/2024 9:38 AM EST [facility] Kemmerer light chains.f ree [Mass/volume] in Serum [facility] Kemmerer light chains.free/Lambda light chains.free [Mass Ratio] in Serum [facility] Lactate dehydrogenas e [Enzymatic activity/volume] in Unspecified specimen [facility] Lambda light chains. free [Mass/volume] in Serum or Plasma [facility] Leukocytes [#/volume ] corrected for nucleated erythrocytes in Blood by Automated coun [facility] Leukocytes [#/volume ] in Blood [facility] Lymphocytes [#/volum e] in Blood by Automated count [facility] Lymphocytes/100 leuk ocytes in Blood by Automated count [facility] MCH [Entitic mass] b y Automated count [facility] MCHC [Mass/volume] b y Automated count [facility] MCV [Entitic volume] by Automated count [facility] Monocytes [#/volume] in Blood by Automated count [facility] Monocytes/100 leukoc ytes in Blood by Automated count [facility] Neisseria gonorrhoea e DNA [Presence] in Unspecified specimen by HIRAM with probe detection Neisseria gonorrhea DNA probe, direct Lab Routine STD exposure Vaginal discharge Ordered: 10/14/2024 [facility] Comment on above: Ordered: 10/14/2024 Neutrophils [#/volum e] in Blood by Automated count [facility] Neutrophils/100 leuk ocytes in Blood by Automated count [facility] Nucleated erythrocyt es [Presence] in Blood by Automated count [facility] Patient Education [facility] Work Phone: Patient referral [facility] Work Phone: Platelet mean volume [Entitic volume] in Blood by Automated count [facility] Platelets [#/volume] in Blood [facility] Protein [Mass/volume ] in Serum or Plasma [facility] Prothrombin time (PT) [facility] Reagin Ab [Presence] in Serum by RPR [facility] Reagin Ab [Presence] in Serum by RPR RPR Lab Routine Missed menses , unspecified gestational age Ordered: 08/26/2024 [facility] Comment on above: Ordered: 08/26/2024 Rubella antibody, IgG Rubella an tibody, IgG Lab Routine Missed menses , unspecified gestational age Ordered: 08/26/2024 [facility] Comment on above: Ordered: 08/26/2024 Serum immunofixation [facility] SURESWAB(R) ADVANCED VAGINITIS PLUS, TMA SURESWAB(R) ADVANCED VAGINITIS PLUS, TMA Pathology and Cytology Routine STD exposure Vaginal discharge Ordered: 10/14/2024 [facility] Work Phone: Comment on above: Ordered: 10/14/2024 Thyroglobulin Ab [Units/volume] in Serum or Plasma [facility] Thyroperoxidase Ab [Units/volume] in Serum or Plasma [facility] Thyrotropin [Units/v olume] in Serum or Plasma TSH Lab Routine Thyroid disease affecting (CMS/HCC) Ordered: 09/11/2024 [facility] [employer] Comment on above: Ordered: 09/11/2024 Thyrotropin receptor Ab [Units/volume] in Serum [facility] Thyroxine (T4) free [Mass/volume] in Serum or Plasma T4, free Lab Routine Thyroid disease affecting ([facility]/HCC) Ordered: 09/11/2024 [facility] [employer] Work Phone: Comment on above: Ordered: 09/11/2024 Tissue transglutamin ase IgA Ab [Units/volume] in Serum [facility] Tissue transglutamin ase IgG Ab [Units/volume] in Serum [facility] Transferrin [Mass/vo lume] in Serum or Plasma Transferrin Lab Routine 01/28/2025 8:32 AM EDT [employer] Work Phone: [facility] Immunizations Immunization Date Immunization Notes Care Provider [facility] 09-01-2021 influenza virus vaccine, unspecified formulation Malagon Sarmini [facility] 01-10-2016 tetanus toxoid, reduced diphtheria toxoid, and acellular pertussis vaccine, adsorbed Malagon Sarmini [facility] 09-30-2009 hepatitis A vaccine, unspecified formulation Malagon Sarmini [facility] 09-30-2009 hepatitis B vaccine, pediatric or pediatric/adolescent dosage Malagon Sarmini [facility] 05-27-2009 hepatitis B vaccine, pediatric or pediatric/adolescent dosage Malagon Sarmini [facility] 03-22-2009 hepatitis A vaccine, unspecified formulation Malagon Sarmini [facility] 03-22-2009 hepatitis B vaccine, pediatric or pediatric/adolescent dosage Malagon Sarmini [facility] 03-22-2009 measles, mumps and rubella virus vaccine Malagon Sarmini [facility] 03-22-2009 meningococcal ACWY vaccine, unspecified formulation Malagon Sarmini [facility] 03-22-2009 tetanus toxoid, reduced diphtheria toxoid, and acellular pertussis vaccine, adsorbed Malagon Sarmini [facility] NEGATED: Highlighted row has not occurred!12-07-2023 influenza virus vaccine, unspecified formulation Malagon Sarmini [facility] Payers Date Payer Category Payer Medicaid [id number] 2024 Medicaid [id number] 2023 Self-pay [id number] 2022 Managed Care Other (unspecified) [employer] [id number] 2022 Private Health Insurance [id number] .[id number] 2022 Unknown [id number] 1992 Unknown [id number] 2.16.840.1.753127.3.579.2 .593 1992 Unknown [id number] 2.16.840.1.611511.3.579.2 .593 1992 Unknown [id number] 2.16.840.1.136373.3.579.2 .593 1992 Unknown [id number] 2.16.840.1.530364.3.579.2 .593 1992 Unknown [id number] 2.16.840.1.005470.3.579.2 .593 1992 Unknown [id number] 2.16.840.1.110151.3.579.2 .593 1992 Unknown [id number] 2.16.840.1.275813.3.579.2 .593 1992 Unknown [id number] 2.16.840.1.971932.3.579.2 .593 1992 Unknown [id number] 2.16.840.1.863121.3.579.2 .593 1992 Unknown [id number] 2.16.840.1.587022.3.579.2 .593 1992 Unknown [id number] 2.16.840.1.712760.3.579.2 .1286 1992 Unknown [id number] 2.16.840.1.914879.3.579.2 .1286 1992 Unknown [id number] 2.16.840.1.670486.3.579.2 .1285 1992 Unknown [id number] 2.16.840.1.032598.3.579.2 .1285 1992 Unknown [id number] 2.16.840.1.038440.3.579.2 .1285 1992 Unknown [id number] 2.16.840.1.472823.3.579.2 .1285 1992 Unknown [id number] 2.16.840.1.945010.3.579.2 .1285 1992 Unknown [id number] 2.16.840.1.012334.3.579.2 .727 1992 Unknown [id number] 2.16.840.1.720318.3.579.2 .727 1992 Unknown [id number] 2.16.840.1.039888.3.579.2 .1258 1992 Unknown [id number] 2.16.840.1.238081.3.579.2 .1258 1992 Unknown [id number] 2.16.840.1.913637.3.579.2 .1258 1992 Unknown [id number] 2.16.840.1.626098.3.579.2 .1258 1992 Unknown [id number] 2.16.840.1.726897.3.579.2 .1258 1992 Unknown [id number] 2.16.840.1.716859.3.579.2 .1258 1992 Unknown [id number] 2.16.840.1.133674.3.579.2 .1258 1992 Unknown [id number] 2.16.840.1.575208.3.579.2 .1258 1992 Unknown [id number] 2.16.840.1.566292.3.579.2 .1258 1992 Unknown [id number] 2.16.840.1.669218.3.579.2 .1258 1992 Unknown [id number] 2.16.840.1.425836.3.579.2 .1258 1992 Unknown [id number] 2..840.1.910979.3.579.2 .1258 1992 Unknown [id number] 2.16.840.1.101084.3.579.2 .1258 1992 Unknown [id number] 2.840.1.408905.3.579.2 .1258 1992 Unknown [id number] 2.840.1.242003.3.579.2 .1258 1992 Unknown [id number] 2.840.1.526057.3.579.2 .1258 1992 Unknown [id number] 2.840.1.712771.3.579.2 .9 1959 Private Health Insurance [id number] 1959 Private Health Insurance [id number] 1959 Private Health Insurance [id number] Unknown Unknown [id number] 2.16.840.1.175491.3.579.2 .531 Unknown [id number] 2.16.840.1.596098.3.579.2 .531 Unknown [id number] 2.16840.1.215543.3.579.2 .531 Unknown [id number] 2.16840.1.346961.3.579.2 .531 Unknown [id number] 2.16.840.1.260615.3.579.2 .531 Unknown [id number] 2.16.840.1.915817.3.579.2 .531 Unknown [id number] 2.16.840.1.809238.3.579.2 .531 Unknown [id number] 2.16.840.1.940912.3.579.2 .531 Unknown [id number] 2.16.840.1.191233.3.579.2 .531 Worker's Compensation [id number] Social History Date Type Detail Facility Start: 04-04-2022 End: 05-05-2025 Tobacco smoking status NHIS Never smoked tobacco (finding) [facility] Start: 1990 Sex Assigned At Female F [facility] Start: 07-09-2023 End: 04-20-2025 Sex Assigned At [facility] Tobacco smoking status Never [facility] Start: 07-13-2024 [facility] Start: 02-25-2019 End: 08-07-2024 Sex Female (finding) [facility] Start: 03-17-2019 End: 02-18-2023 Tobacco use and exposure Smokeless tobacco non-user [facility] Start: 02-19-2024 End: 05-13-2025 Alcoholic beverage intake Current drinker of alcohol (finding) [facility] Start: 02-19-2024 End: 04-20-2025 Alcoholic beverage intake [facility] How many standard drinks containing alcohol do you have on a typical day? 1 or 2 [facility] How often do you hav e 6 or more drinks on 1 occasion? Monthly [facility] Start: 1990 Sex assigned at Not on file [facility] Start: 08-07-2024 End: 08-07-2024 Tobacco smoking status OKIS Unknown if ever smoked [facility] Start: 11-21-2024 Alcoholic beverage intake Ex-drinker (finding) [facility] NEGATED: Highlighted row [facility] Goals Date Patient Goal Desired Activity /State Clinical Notes 04-03-2022 to 05-21-2025 Maggy Sanz, CONTRACT NEGOTIATOR - 05/21/2025 9:30 AM CAROLA Vasquez - 05/13/2025 9:30 AM Jeanne Warren, CAROLA - 04/01/2025 9:50 AM CAROLA Vasquez - 03/17/2025 11:30 AM EDTDexterloki Patten, CONTRACT NEGOTIATOR - 03/10/2025 11:10 AM EDT Note Date & Type Note Facility 05-21-2025 History of Presen t illness Narrative Associated Order(s): IUD Insertion Post-Procedure Diagnose(s): Encounter for IUD insertion Reason for Appointment: Patient ID: Leandra Fonseca is a 34 y.o. female who presents for IUD insertion Patient presents today for a IUD Insertion appointment. MEDICATIONS Current Outpatient Medications Medication Instructions valACYclovir (VALTREX) 500 mg, Oral, Daily venlafaxine XR (EFFEXOR XR) 75 mg, Oral, Daily, Do not crush or chew. Zuranolone (Zurzuvae) 25 MG capsule 2 capsules, Oral, Daily ALLERGIES Allergies Allergen Reactions Labetalol Other, Shortness of breath and Unknown Other Reaction(s): Dizziness, loopiness, burning sensation in chest Other Reaction(s): Difficulty Breathing Other Reaction(s): Tongue swelling Cefdinir Other Reaction(s): Unknown Reaction Other Reaction(s): Unknown Methimazole Other Reaction(s): throat closing Other Reaction(s): anaphylaxis Labetalol Hcl Hives PROBLEMS Active Ambulatory Problems Diagnosis Date Noted Mood disorder 03/23/2025 Resolved Ambulatory Problems Diagnosis Date Noted 10 weeks gestation of ([facility] 09/11/2024 First trimester ([facility]) 09/11/2024 Past Medical History: Diagnosis Date Abnormal results [...] of thyroid function studies Acid reflux 02/2017 [facility] Alpha thalassemia silent carrier Anemia Endometriosis Fibroid, uterine History of anemia History of hyperthyroidism Hypothyroidism Irregular menses Menometrorrhagia Nontoxic multinodular goiter Overweight (BMI 25.0-29.9) Syncope 06/2016 [facility] Varicella zoster [...] Past Surgical History: Procedure Laterality Date SECTION, CLASSIC 03/25/2025 SECTION, LOW TRANSVERSE 2015 31 weeks/PIH Nick SECTION, LOW TRANSVERSE 09/03/[address] ANGIOGRAM CHEST 06/28/2018 CT ANGIOGRAM CHEST [facility] ANGIOGRAM CHEST 06/28/2018 CT ANGIOGRAM CHEST [facility] PAP SMEAR 07/03/2022 negative SALPINGECTOMY Bilateral 03/25/2025 TUMOR REMOVAL REVIEW OF SYSTEMS Review of [...] nursing note reviewed. Exam conducted with a radiology special procedure tech present. Vitals: Estimated body mass index is 33.62 kg/m as calculated from the following: Height as of 25: 5' 2.5 . Weight as of this encounter: 186 lb 12.8 oz. BP: 104/68 No LMP recorded. ASSESSMENT & PLAN Assessment/Plan Encounter Diagnosis: ICD-10-CM 1. Encounter for IUD insertion Z30.430 POCT , urine manually resulted Levonorgestrel intrauterine device 52 mg IUD Insertion Performed by: Malcolm Pendleton DO Authorized by: Malcolm Pendleton DO Procedure: IUD insertion Consent obtained by patient, parent, or legal power of energy attorney - including discussion of procedure risks [...] placement: no Intended removal date: 5 years IUD Insertion: Patient presents today for an IUD Insertion. Patient is having a Mirena placed and written consent was obtained. Patient was placed in the dorsal lithotomy position with feet in stirrups. A sterile speculum ws placed into the vagina and the cervix was visualized. Cervix was cleansed with betadine and the anterior lip was grasped with ring forceps. Uterus was then gently sounded. New IUD device was gently advanced through the endocervix, toward te uterine fundus. The IUD was then deployed as device was gently removed from the uterus. The IUD strings were cut to the length from external os. All instruments were removed from the vagina. Post-procedure instructions given. All of patients questions were answered and she expressed understanding. Advised to call interim with any questions or concerns. Follow Up: Patient is to return to the office in 4 weeks for a string check. Documented by Maggy Sanz LPN on behalf of: Malcolm Pendleton DO documented in this encounter [facility] 05-13-2025 History of Presen t illness Narrative Reason for Appointment: Patient ID: Leandra Fonseca is a 34 y.o. female who presents for Care Patient presents today for Post Follow Up appointment. MEDICATIONS Current Outpatient Medications Medication Instructions valACYclovir (VALTREX) 500 mg, Oral, Daily venlafaxine XR (EFFEXOR XR) 75 mg, Oral, Daily, Do not crush or chew. Zuranolone (Zurzuvae) 25 MG capsule 2 capsules, Oral, Daily ALLERGIES Allergies Allergen Reactions Labetalol Other, Shortness of breath and Unknown Other Reaction(s): Dizziness, loopiness, burning sensation in chest Other Reaction(s): Difficulty Breathing Other Reaction(s): Tongue swelling Cefdinir Other Reaction(s): Unknown Reaction Other Reaction(s): Unknown Methimazole Other Reaction(s): throat closing Other Reaction(s): anaphylaxis Labetalol Hcl Hives PROBLEMS Active Ambulatory Problems Diagnosis Date Noted Mood disorder 03/23/2025 Resolved Ambulatory Problems Diagnosis Date Noted 10 weeks gestation of ([facility]) 09/11/2024 First trimester ([facility]) 09/11/2024 Past Medical History: Diagnosis Date Abnormal results [...] of thyroid function studies Acid reflux 02/2017 [facility] Alpha thalassemia silent carrier Anemia Endometriosis Fibroid, uterine History of anemia History of hyperthyroidism Hypothyroidism Irregular menses Menometrorrhagia Nontoxic multinodular goiter Overweight (BMI 25.0-29.9) Syncope 06/2016 [facility] Varicella zoster [...] Past Surgical History: Procedure Laterality Date SECTION, CLASSIC 03/25/2025 SECTION, LOW TRANSVERSE 2016 31 weeks/PIH Nick SECTION, LOW TRANSVERSE 09/03/[address] ANGIOGRAM CHEST 06/28/2018 CT ANGIOGRAM CHEST [facility] ANGIOGRAM CHEST 06/28/2018 CT ANGIOGRAM CHEST [facility] PAP SMEAR 07/03/2022 negative SALPINGECTOMY Bilateral 03/25/2025 TUMOR REMOVAL REVIEW OF SYSTEMS Review of [...] reviewed. Vitals: Estimated body mass index is 34.16 kg/m as calculated from the following: Height as of 04/20/25: 5' 2.5 . Weight as of this encounter: 189 lb 12.8 oz. BP: 114/74 No LMP recorded. ASSESSMENT & PLAN ICD-10-CM 1. 6 weeks follow-up ([facility]) Z39.2 2. 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 Mood disorder F39 Zuranolone (Zurzuvae) 25 MG capsule 4. depression F53.0 Zuranolone (Zurzuvae) 25 MG capsule Post Follow Up: Patient is doing well. Patient presents today for 6 week visit. Patient is s/p delivery. Patient states depression but denies suicidal and homicidal ideations. All options were discussed with the patient regarding control and patient desires salpingectomy. Follow Up: Patient is to return for annual unless needed otherwise. Documented by CAROLA Patton on behalf of: CAROLA Patton documented in this encounter [facility] 05-06-2025 Note ED Patient Education Note Infectious Disease Upper Respiratory Infection, Adult An upper respiratory infection (URI) is a common viral infection of the nose, throat, and upper air passages that lead to the lungs. The most common type of URI is the common cold. URIs usually get better on their own, without medical treatment. What are the causes? A URI is caused by a virus. You may catch a virus by: ??? Breathing in droplets from an infected person's cough or sneeze. ??? Touching something that has been exposed to the virus (is contaminated) and then touching your mouth, nose, or eyes. What increases the risk? You are more likely to get a URI if: ??? You are very young or very old. ??? You have close contact with others, such as at work, school, or a health care facility. ??? You smoke. ??? You have long-term (chronic) heart or lung disease. ??? You have a weakened disease-fighting system (immune system). ??? You have nasal allergies or asthma. ??? You are experiencing a lot of stress. ??? You have poor nutrition. What are the signs or symptoms? A URI usually involves some of the following symptoms: ??? Runny or stuffy (congested) nose. ??? Cough. ??? Sneezing. ??? Sore throat. ??? Headache. ??? Fatigue. ??? Fever. ??? Loss of appetite. ??? Pain in your forehead, behind your eyes, and over your cheekbones (sinus pain). ??? Muscle aches. ??? Redness or irritation of the eyes. ??? Pressure in the ears or face. How is this diagnosed? This condition may be diagnosed based on your medical history and symptoms, and a physical exam. Your health care provider may use a swab to take a mucus sample from your nose (nasal swab). This sample can be tested to determine what virus is causing the illness. How is this treated? URIs usually get better on their own within 7?10 days. Medicines cannot cure URIs, but your health care provider may recommend certain medicines to help relieve symptoms, such as: ??? Ziio-zbh-cwwrzze cold medicines. ??? Cough suppressants. Coughing is a type of defense against infection that helps to clear the respiratory system, so take these medicines only as recommended by your health care provider. ??? Fever-reducing medicines. Follow these instructions at home: Activity ??? Rest as needed. ??? If you have a fever, stay home from work or school until your fever is gone or until your health care provider says your URI cannot spread to other people (is no longer contagious). Your health care provider may have you wear a face mask to prevent your infection from spreading. Relieving symptoms ??? Gargle with a mixture of salt and water 3?4 times a day or as needed. To make salt water, completely dissolve ??1 tsp (3?6 g) of salt in 1 cup (237 mL) of warm water. ??? Use a cool-mist humidifier to add moisture to the air. This can help you breathe more easily. Eating and drinking ??? Drink enough fluid to keep your urine pale yellow. ??? Eat soups and other clear broths. General instructions ??? Take mldm-xru-ssdcjxg and prescription medicines only as told by your health care provider. These include cold medicines, fever reducers, and cough suppressants. ??? Do not use any products that contain nicotine or tobacco. These products include cigarettes, chewing tobacco, and vaping devices, such as e-cigarettes. If you need help quitting, ask your health care provider. ??? Stay away from secondhand smoke. ??? Stay up to date on all immunizations, including the yearly (annual) flu vaccine. ??? Keep all follow-up visits. This is important. How to prevent the spread of infection to others URIs can be contagious. To prevent the infection from spreading: ??? Wash your hands with soap and water for at least 20 seconds. If soap and water are not available, use hand shovel loader operator. ??? Avoid touching your mouth, face, eyes, or nose. ??? Cough or sneeze into a tissue or your sleeve or elbow instead of into your hand or into the air. Contact a health care provider if: ??? You are getting worse instead of better. ??? You have a fever or chills. ??? Your mucus is brown or red. ??? You have yellow or brown discharge coming from your nose. ??? You have pain in your face, especially when you bend forward. ??? You have swollen neck glands. ??? You have pain while swallowing. ??? You have white areas in the back of your throat. Get help right away if: ??? You have shortness of breath that gets worse. ??? You have severe or persistent: ? Headache. ? Ear pain. ? Sinus pain. ? Chest pain. ??? You have chronic lung disease along with any of the following: ? Making high-pitched whistling sounds when you breathe, most often when you breathe out (wheezing). ? Prolonged cough (more than 14 days). ? Coughing up blood. ? A change in your usual mucus. ??? You have a stiff n (more content not included)... [facility] 04-01-2025 History of Presen t illness Narrative Reason for Appointment: Patient ID: Leandra Fonseca is a 34 y.o. female who presents for Post-op Visit Patient presents today for 1 Week Post Op Follow Up appointment. MEDICATIONS Current Outpatient Medications Medication Instructions valACYclovir (VALTREX) 500 mg, Oral, Daily venlafaxine XR (EFFEXOR XR) 37.5 mg, Oral, Daily, Do not crush or chew. ALLERGIES Allergies Allergen Reactions Labetalol Other, Shortness of breath and Unknown Other Reaction(s): Dizziness, loopiness, burning sensation in chest Other Reaction(s): Difficulty Breathing Cefdinir Other Reaction(s): Unknown Reaction Methimazole Other Reaction(s): throat closing Other Reaction(s): anaphylaxis Labetalol Hcl Hives PROBLEMS Active Ambulatory Problems Diagnosis Date Noted Mood disorder 03/23/2025 Resolved Ambulatory Problems Diagnosis Date Noted 10 weeks gestation of ([facility]) 09/11/2024 First trimester ([facility]) 09/11/2024 Past Medical History: Diagnosis Date Abnormal results [...] of thyroid function studies Acid reflux 02/2017 [facility] Alpha thalassemia silent carrier Anemia Endometriosis Fibroid, uterine History of anemia History of hyperthyroidism Hypothyroidism Irregular menses Menometrorrhagia Nontoxic multinodular goiter Overweight (BMI 25.0-29.9) Syncope 06/2016 [facility] Varicella zoster [...] Past Surgical History: Procedure Laterality Date SECTION, CLASSIC 03/25/2025 SECTION, LOW TRANSVERSE 2016 31 weeks/PIH Nick SECTION, LOW TRANSVERSE 09/03/[address] ANGIOGRAM CHEST 06/28/2018 CT ANGIOGRAM CHEST [facility] CT ANGIOGRAM CHEST 06/28/2018 CT ANGIOGRAM CHEST [facility] PAP SMEAR 07/03/2022 negative SALPINGECTOMY Bilateral 03/25/2025 TUMOR REMOVAL REVIEW OF SYSTEMS Review of Systems: Review of Systems All other systems reviewed and are negative. OBJECTIVE Objective: Physical Exam Constitutional: Appearance: Normal appearance. She is well-developed. Cardiovascular: Rate and Rhythm: Normal rate and regular rhythm. Pulmonary: Effort: Pulmonary effort is normal. Breath sounds: Normal breath sounds. Abdominal: General: Bowel sounds are normal. There is no distension. Palpations: Abdomen is soft. Tenderness: There is no abdominal tenderness. There is no guarding or rebound. Comments: Pfannenstiel incision healing well with yevgeniy, no sign of infection Musculoskeletal: General: No swelling. Normal range of motion. Right lower leg: No edema. Left lower leg: No edema. Neurological: Mental Status: She is alert and oriented to person, place, and time. Skin: General: Skin is warm and dry. Psychiatric: Mood and Affect: Mood normal. Behavior: Behavior normal. Vitals and nursing note reviewed. Exam conducted with a radiology special procedure tech present. Vitals: Estimated body mass index is 33.55 kg/m as calculated from the following: Height as of 02/18/24: 5' 3 . Weight as of this encounter: 189 lb 6.4 oz. BP: 110/70 No LMP recorded. ASSESSMENT & PLAN ICD-10-CM 1. Status post section Z98.891 Patient presents today for a one week postop section check. Patient is doing well with minor complaints of pain. Incision has been noted as healing well with no signs and symptoms of infection. Patient does state having some depression was started on medication at the hospital and was discharged with medication. Patient states still early, she does get help at home by friends. Patient is and pumping. Yevgeniy removed with out difficulty and steri strips placed Follow Up: Patient is to return in 5 weeks for 6 week evaluation. Documented by Kathy Goldsmith LPN on behalf of: CAROLA Patton documented in this encounter [facility] 03-17-2025 History of Presen t illness Narrative Reason [...] Diagnosis Date Noted 10 weeks gestation of ([facility]) 09/11/2024 First trimester ([facility]) 09/11/2024 Resolved Ambulatory Problems Diagnosis Date Noted [...] of thyroid function studies Acid reflux 02/2017 [facility] Alpha thalassemia silent carrier Anemia Endometriosis Fibroid, uterine History of anemia History of hyperthyroidism Hypothyroidism Irregular menses Menometrorrhagia Nontoxic multinodular goiter Overweight (BMI 25.0-29.9) Syncope 06/2016 [facility] Varicella zoster [...] Date SECTION, LOW TRANSVERSE 2015 31 weeks/PIH Nick SECTION, LOW TRANSVERSE 09/03/[address] ANGIOGRAM [...] Vitals: Estimated body mass index is 37.38 kg/m as calculated from the following: Height as of 02/19/24: 5' 3 . Weight as of this encounter: 211 lb. BP: 122/74 Patient's last menstrual period was 06/23/2024. ASSESSMENT & PLAN ICD-10-CM 1. Third trimester ([facility]) Z34.93 POCT urinalysis dipstick manually resulted 2. 37 weeks gestation of ([facility]) Z3A.37 3. HSV (herpes simplex virus) infection B00.9 4. Anemia, unspecified type D64.9 5. Alpha thalassemia silent carrier D56.3 6. Pre-eclampsia in third trimester ([facility]) O14.93 Return OB: Patient presents today for a routine obstetrics appointment. Patient is currently 37w2d . Patient states she is doing well but has complaints of being tired due to current . Patient is scheduled for a C/S for 03/30/2025 and complaining of lots of vaginal pressure. Pt states she has also been experiencing contractions. Pt desires to be [...] of: CAROLA Patton documented in this encounter [facility] 03-10-2025 History of Presen t illness Narrative Reason [...] Diagnosis Date Noted 10 weeks gestation of ([facility]) 09/11/2024 First trimester ([facility]) 09/11/2024 Resolved Ambulatory Problems Diagnosis Date Noted [...] of thyroid function studies Acid reflux 02/2017 [facility] Alpha thalassemia silent carrier Anemia Endometriosis Fibroid, uterine History of anemia History of hyperthyroidism Hypothyroidism Irregular menses Menometrorrhagia Nontoxic multinodular goiter Overweight (BMI 25.0-29.9) Syncope 06/2016 [facility] Varicella zoster [...] Date SECTION, LOW TRANSVERSE 2015 31 weeks/PIH Nick SECTION, LOW TRANSVERSE 09/03/[address] ANGIOGRAM [...] nursing note reviewed. Exam conducted with a radiology special procedure tech present. Vitals: Estimated body mass index is 36.76 kg/m as calculated from the following: Height as of 02/19/24: 5' 3 . Weight as of this encounter: 207 lb 8 oz. BP: 118/70 Patient's last menstrual period was 06/23/2024. ASSESSMENT & PLAN ICD-10-CM 1. Third trimester ([facility] Z34.93 CULTURE, GROUP B STREP WITH SUSCEPTIBLITY [...] Malcolm Pendleton DO documented in this encounter [facility] 02-26-2025 Miscellaneous Notes Attempted to reach patient in regards to missed appt, no answer, left VM documented in this encounter [facility] 02-26-2025 Telephone encounter Note Attempted to reach patient in regards to missed appt, no answer, left VM [facility] 02-24-2025 History of Presen t illness Narrative Reason [...] Date SECTION, LOW TRANSVERSE 2015 31 weeks/PIH Nick SECTION, LOW TRANSVERSE 09/03/[address] ANGIOGRAM [...] nursing note reviewed. Exam conducted with a radiology special procedure tech present. Vitals: Estimated body mass index is 36.16 kg/m as calculated from the following: Height [...] Malcolm Pendleton DO documented in this encounter [facility] 02-20-2025 Telephone encounter Note OB: 33w5d P# [phone] Pt called in and seen at ER today for tooth pain and possible abscess. Pt prescribed Amox and Williamson at ER. Pt called in trying to see if there was anything Dr. Pendleton could do as she has had this pain for over 1 month and now is worsening. States dentist can not do anything until after delivery as she needs to be put to sleep for tooth removal. Advised pt to continue antibiotic and pain med as prescribed. Advised that we would reach out to Dr. Pendleton for response if not has apt on 02/24/2025. Please Advise [facility] 02-20-2025 Miscellaneous Notes OB: 33w5d P# [phone] Pt called in and seen at ER today for tooth pain and possible abscess. Pt prescribed Amox and Williamson at ER. Pt called in trying to see if there was anything Dr. Pendleton could do as she has had this pain for over 1 month and now is worsening. States dentist can not do anything until after delivery as she needs to be put to sleep for tooth removal. Advised pt to continue antibiotic and pain med as prescribed. Advised that we would reach out to Dr. Pendleton for response if not has apt on 02/24/2025. Please Advise documented in this encounter [facility] 02-11-2025 History of Presen t illness Narrative [...] of thyroid function studies Acid reflux 02/2017 [facility] Alpha thalassemia silent carrier Anemia Endometriosis Fibroid, uterine History of anemia History of hyperthyroidism Hypothyroidism (CMS/HCC) Irregular menses Menometrorrhagia Nontoxic multinodular goiter (CMS/HCC) Overweight (BMI 25.0-29.9) Syncope 06/2016 [facility] Varicella zoster [...] Date SECTION, LOW TRANSVERSE 2015 31 weeks/PIH Inck SECTION, LOW TRANSVERSE 09/03/[address] ANGIOGRAM [...] nursing note reviewed. Exam conducted with a radiology special procedure tech present. Vitals: Estimated body mass index is [...] Reynold Leslie NP documented in this encounter [facility] 02-04-2025 Miscellaneous Notes This pt called this morning to cancel her 02-11 mca doppler appt. I gave her three alt, apt dates and time, she also declined these as well,I called her drdr pendleton I left a message for the nurse. Thank you documented in this encounter [facility] 02-04-2025 Telephone encounter Note This pt called this morning to cancel her 02-11 mca doppler appt. I gave her three alt, apt dates and time, she also declined these as well,I called her drdr pendleton I left a message for the nurse. Thank you [facility] 02-01-2025 Evaluation note Diagnosis Onset Date Resolution Headache in noneactive February 01, 2025 11:21am [facility] Work Phone: 1(928) 900-467205-14-2025 Miscellaneous Notes* Telephone Encounter - Josey Valentine - 01/28/2025 9:43 AM EDT I called pt to talked about the apts I scheduled due to [place] being [place] her [place] instead [facility] Telephone encounter Note* Telephone Encounter - Josey Valentine - 01/28/2025 9:43 AM EDT I called pt to talked about the apts I scheduled due to us already being booked [place] I scheduled her in [place] instead [facility]05-13-2025 History of Present illness Narrative* Michell Patten, XANDER - 01/27/2025 8:30 AM EDT Reason for Appointment: Patient ID: Leandra Fonseca [...] of thyroid function studies Acid reflux 02/2017 [facility] Alpha thalassemia silent carrier Anemia Endometriosis Fibroid, uterine History of anemia History of hyperthyroidism Hypothyroidism (CMS/HCC) Irregular menses Menometrorrhagia Nontoxic multinodular goiter (CMS/HCC) Overweight (BMI 25.0-29.9) Syncope 06/2016 [facility] Varicella zoster [...] Date SECTION, LOW TRANSVERSE 2015 31 weeks/PIH Nick SECTION, LOW TRANSVERSE 09/03/[address] ANGIOGRAM [...] nursing note reviewed. Exam conducted with a radiology special procedure tech present. Vitals: Estimated body mass index is [...] of: Malcolm Pendleton DO [id number] History of Present illness Narrative* Reynold Leslie NP - 01/14/2025 11:20 AM EDT Reason for Appointment: Patient ID: Leandra Fonseca [...] of thyroid function studies Acid reflux 02/2017 [facility] Alpha thalassemia silent carrier Anemia Endometriosis Fibroid, uterine History of anemia History of hyperthyroidism Hypothyroidism (CMS/HCC) Irregular menses Menometrorrhagia Nontoxic multinodular goiter (CMS/HCC) Overweight (BMI 25.0-29.9) Syncope 06/2016 [facility] Varicella zoster [...] Date SECTION, LOW TRANSVERSE 2016 31 weeks/PIH Nick SECTION, LOW TRANSVERSE 09/03/[address] ANGIOGRAM [...] nursing note reviewed. Exam conducted with a radiology special procedure tech present. Vitals: Estimated body mass index is [...] continues to follow with MFM ultrasounds every twoweeks for MCA-PSV. Documented by Reynold Leslie NP on behalf of: Reynold Leslie NP documented in this encounterSaint [facility] [id number] History of Present illness Narrative* Michell Patten, XANDER - 12/30/2024 11:10 AM EDT Reason for Appointment: Patient ID: Leandra Fonseca is a 34 y.o. female who presents for Routine Visit (Patient was seen at the [place] ER on 12/29/2024 for painful genital rash. Pt states it had been burning fora few days and continues burning. Patient was [...] Medical History: Diagnosis Date Acid reflux 02/2017 [facility] Alpha thalassemia silent carrier Anemia Endometriosis Fibroid, uterine History of anemia History of hyperthyroidism Hypothyroidism (CMS/HCC) Irregular menses Menometrorrhagia Overweight (BMI 25.0-29.9) Syncope 06/2016 [facility] Varicella zoster Social History Tobacco [...] Date SECTION, LOW TRANSVERSE 2015 31 weeks/PIH Nick SECTION, LOW TRANSVERSE 09/03/[address] ANGIOGRAM [...] nursing note reviewed. Exam conducted with a radiology special procedure tech present. Vitals: Estimated body mass index is [...] Pt was seen in ER yesterday HSV primaryoutbreak, rx for norco and valtrex faxed to pharmacy. Pt will have cultures obtained next visit- rxfor azithromycin faxed to pharmacy for precaution. No orders of the defined types were placed in this encounter. Follow Up: Patient is to return to office in 2 week for routine OB appointment. Documented by Michell Patten LPN on behalf of: Malcolm Pendleton DO documented in [facility] encounterSaint [facility] [id number] History of Present illness Narrative* HARPAL Little - 12/12/2024 9:00 AM EDTSummary: [facility] Genetic Counseling Note Images from the original note were not included. Provider at different site/location than patient. I confirmed the patient is located in the [facility]. Leandra Moe Homero is currently at home and provider at remote site. The patient consented to be treated electronically via this form of telemedicine. This visit was not related to an office visit or procedure in the past 7 days, and in-office follow up is not recommended in the next 24 hours. Video Visit via Real-time Synchronous Audiovisual Provider Location: [facility] AT [address] [id number] Patient Location: Patient's home Patient Location Women'S Activities Adviser: None Video Visit Consent Statement: I discussed risks, benefits, and alternatives of a real-time synchronous audiovisual consultation with the patient (and any accompanying persons) including the risks that the patient's personal health details and medical records will be discussed over real-time, synchronous, interactive video/audio/telecommunication technology, the visit will not be recorded withoutthe express consent of both the provider and the patient, and that there are some limitations compared to [id number]-[id number] evaluations. We elected to proceed. Name: Leandra Fonseca : 1990 Date of Visit: 12/12/2024 Email: [email or web address] Preferred contact method: mychart, mail, phone Requesting Physician: Malcolm Pendleton DO [address] [place] [address] [place] [address] Reason for Referral: Leandra Fonseca is a 34 y.o. female who presented to [facility] for a genetic counseling visit. Leandra is here at the request of Malcolm Pnedleton DO due to abnormal carrier screening results [...] Screen: YES - low risk Performing lab: [facility] Conditions screened: Trisomy 13, Trisomy 18, Trisomy 21, sex chromosome aneuploidies sex predicted: male fraction: 11.8% Carrier Screening: YES - alpha thalassemia carrier (a-/a-), increased risk Performing lab: [facility] Test type: UNITY Screen Carrier Screen with [...] follow-up ultrasound imaging or evaluation in the settingof low risk cell free DNA screening. 5) [...] together. Leandra has a healthy 8 year oldson and a 5 year old son with sickle cell trait with a different partner. We reviewed that both of her sons are obligate silent carriers for alpha thalassemia (aa/a-). Leandra reports a full sister that carries alpha thalassemia in trans (a-/a-), and has 2 sons, one of which had a speech delay. Her sons are both obligate silent carriers for alpha thalassemia (aa/a-)as well. Her father a history of deep [...] clots, developmental delays or intellectual disability, other birthdefects, neural tube defects, multiple miscarriages, stillborns or [...] or anomalies can also increase the risk ofan underlying chromosome anomaly or genetic syndrome. There [...] non-invasive screening (sgNIPT) to screen for common autosomalrecessive conditions. If the mother of the baby is a carrier for any of the genetic conditions, test ing will reflex to provide risk assessment related [...] two non-functional copies. These carriers can have mildanemia and microcytic red blood cells on a [...] risk for the to be affected with Hemo globin H disease is 1 in 220 (per risk assessment). We reviewed all of her children will at least be obligate silent carries for alpha thalassemia (aa/a- ). diagnosis via amniocentesis is available in due [...] low. We reviewed all children born in [place] are screened for alpha thalassemia and sickle [...] analyze the sample. This testing is nondiagnostic andshould be interpreted with caution. Leandra's results indicate the is low risk for all chromosome conditions screened for. The patient reports her father has a personal history of DVT. Deep vein thrombosis (DVT) is usuallysporadic and unrelated to an underlying genetic condition. [...] the affected family member by a medical secretary receptionist or albacore fishing boat crewman may be helpful in defining the condition [...] inserted into the maternal abdomen and amniotic fluid(the fluid surrounding the fetus), which includes DNA is collected and used for genetic testing. Amniocentesis can also measure the amount of AFP and other substances specific to open neural tube defects in the amniotic fluid.The risk of miscarriage, delivery, and infection is about 1in 900. When a known variant or variants for a single gene disorder are identified in the family or there is high suspicion for a single gene disorder, diagnostic testing for those variants on the gene levelis possible. Plan of Care: 1. Amniocentesis discussed and declined. 2. Continue to monitor the via ultrasound. 3. Patient diagnoses: alpha thalassemia carrier (a-/a-), abnormal genetic test in , familyhistory of sickle cell trait and DVT 4. [...] call or email their genetic counselor at [phone] or [email or web address] if any additional questions or concerns should arise. HARPAL Kunz Licensed, Certified Genetic Counselor [facility] Miscellaneous Notes* Telephone Encounter - Natalie Díaz RN - 12/09/2024 12:43 PM EDT Attempted to contact patient to schedule Genetic counseling appointment. No answer. LVM requesting patient return call to schedule. documented in this encounterE[facility]03-[facility]-2025 Telephone encounter Note* Telephone Encounter - Natalie Díaz RN - 12/09/2024 12:43 PM EDT Attempted to contact patient to schedule Genetic counseling appointment. No answer. LVM requesting patient return call to schedule. [facility]03-24-2025 Miscellaneous Notes* Telephone Encounter - Josey Valentine - 12/08/2024 2:09 PM EDT I talked to pt and gave her the times and dates of the new apts Priscilla F made for her. She said they where all fine, thank you documented in this encounterE[facility]03-[facility] Telephone encounter Note* Telephone Encounter - Josey Valentine - 12/08/2024 2:09 PM EDT I talked to pt and gave her the times and dates of the new apts Priscilla F made for her. She said they where all fine, thank you [facility]03-24-2025 History of Present illness Narrative* Henny Montgomery MD - 12/08/2024 11:57 AM EDT [facility] staff note 1. Alpha-thalassemia carrier (a-/a-) with mild anemia. Father of the baby testing unavailable. Unfortunately the father of the baby has . carrier screening high risk for alpha-thalassemia anemia and therefore patient will require every 14 days MCA Doppler studies until 37 weeks gestation. HENNY MONTGOMERY MD documented in this encounterE[facility]03-07-[facility] History of Present illness Narrative* Priscilla Haider LPN - 11/21/2024 11:00 AM EST Headache/epigastric pain/blurry vision/swelling? Blurry vision, primary OB is aware Cramping/contractions? No Abnormal vaginal discharge? No Spotting/vaginal bleeding? No Loss or gush of fluid like your water may have broken? No Do you have cats at home? No Do you change the litter box (reason: risk of toxoplasmosis)? N/A Genetic testing done this here or other office? No Have you been seen here at [facility] in a previous ? Yes, with G2 Recent ER visits or hospitalizations? No Bring blood sugar log or meter with you today? (Please bring them with you for every visit at [facility]) N/A Flu vaccine (Jul-November)? No Any concerns that you would like me to mention to the provider today? No * Henny Montgomery MD - 11/21/2024 11:00 AM EST REASON FOR CONSULTATION: Thalassemia carrier (a-/a-) HISTORY [...] mg total) by mouth in the morning., Disp:, Rfl: metoclopramide (REGLAN) 10 mg tablet, Take [...] 2 (two) times a day. (Patient not taking:Reported on 11/21/2024), Disp: , Rfl: FAMILY/GENETIC HISTORY: No family history of VTE, cardiac defects and mental retardation . SOCIAL HISTORY:Patient denies tobacco use, alcohol use, or drug use. RECENT HOSPITALIZATION: none I did review all the labs results available in addition to labs which were ordered by the primary care physician, and the other consultants, we search on [employer] and all the available care everywhere epic I did review all the imaging studies of the patient available on EMR, ordered by the primary care physician and the other funeral pre need consultant HABITS: Patient activity no restrictions, diet [...] Postition: Lying) Pulse 87 Ht 160 cm (5'2.99 ) Wt 83.6 kg (184 lb 3.2 [...] for alpha-thalassemia on the fetus done through [place] cell free DNA testing 3. Patient is [...] MCA Dopplers at 30 weeks gestation at [facility] office at our [facility] site. DISPOSITION: At this point the patient is in complete care of her physical therapy attendant. Patient does have ultrasound scheduled with us. Thank you for allowing me to participate in Leandra Fonseca . If there any questions please do nothesitate to contact us. Sincerely, HENNY MONTGOMERY MD documented in this encounter[facility]03-04-[facility]25 History of Present illness Narrative* Naresh Chung, SWITCHGEAR REPAIRER-AIRPLANE WOODWORKER - 11/18/2024 10:55 AM EST Images from the original note were not [...] Next Visit: 1 year documented in this encounterSaint [facility] [id number] Evaluation note* Diagnosis Onset Date Resolution Status Admit Date Anemia acute November 10, 2024 2:45pm Folate deficiency acute Februar 2024 2:45pm Iron deficiency anemia due t o chronic blood loss acute October 2:45pm Vitamin B12 deficiency anemia acute November 10, 2024 2:45pm Iron deficiency anemia due t o chronic blood loss acute October 3:16pm [facility] Work Phone: 1(839) 244-326402-18-2025 History of Present illness Narrative* Michell Patten [...] Medical History: Diagnosis Date Acid reflux 02/2017 [facility] Alpha thalassemia silent carrier Anemia Endometriosis Fibroid, uterine History of anemia History of hyperthyroidism Hypothyroidism (CMS/HCC) Irregular menses Menometrorrhagia Overweight (BMI 25.0-29.9) Syncope 06/2016 [facility] Varicella zoster Social History Tobacco [...] Date SECTION, LOW TRANSVERSE 2015 31 weeks/PIH Nick SECTION, LOW TRANSVERSE 09/03/2019 Repeat CT ANGIOGRAM [...] nursing note reviewed. Exam conducted with a radiology special procedure tech present. Vitals: Estimated body mass index is [...] of: Malcolm Pendleton DO documented in this encounterSaint Joseph Hospital [id number] History of Present illness Narrative* CAROLA Patton [...] Medical History: Diagnosis Date Acid reflux 02/2017 [facility] Alpha thalassemia silent carrier Anemia Endometriosis Fibroid, uterine History of anemia History of hyperthyroidism Hypothyroidism (CMS/HCC) Irregular menses Menometrorrhagia Overweight (BMI 25.0-29.9) Syncope 06/2016 [facility] Varicella zoster Social History Tobacco [...] Date SECTION, LOW TRANSVERSE 2015 31 weeks/PIH Nick SECTION, LOW TRANSVERSE 09/03/[address] ANGIOGRAM [...] annual exam/routine obstetrics appointment. Patient is currently [id number]. Patient states she is doing well but [...] behalf of: CAROLA Patton documented in this encounterSaint Joseph Hospital [id number] History of Present illness Narrative* Michell Patten, XANDER - 09/11/2024 10:20 AM EST Reason for Appointment: Patient ID: Leandra Fonscea is a 34 y.o. female who presents [...] Medical History: Diagnosis Date Acid reflux 02/2017 [facility] Alpha thalassemia silent carrier Anemia Endometriosis Fibroid, uterine History of anemia History of hyperthyroidism Hypothyroidism (CMS/HCC) Irregular menses Menometrorrhagia Overweight (BMI 25.0-29.9) Syncope 06/2016 [facility] Varicella zoster Social History Tobacco [...] Date SECTION, LOW TRANSVERSE 2015 31 weeks/PIH Nick SECTION, LOW TRANSVERSE 09/03/[address] ANGIOGRAM [...] nursing note reviewed. Exam conducted with a radiology special procedure tech present. Vitals: Estimated body mass index is [...] or undercooked meat, [facility] Patient has been consulted regarding any [...] of: Malcolm Pendleton DO documented in this encounterSaint Joseph Hospital [id number] History of Present illness Narrative* Suze Lopez [...] Date SECTION, LOW TRANSVERSE 2015 31 weeks/PIH Nick SECTION, LOW TRANSVERSE 09/03/[address] ANGIOGRAM [...] or undercooked meat, and [facility]. Patient has also been advised to [...] by: Suze Lopez LPN documented in this encounterSaint Joseph Hospital [id number] Evaluation note* Diagnosis Onset Date Resolution Status Admit Date Abdominal pain acute July 142023 11:39am [facility] Work Phone: 1(811) 495-895910-18-2023 Progress note Author Kelly Hough [facility] July 03, 2023 10:09pm Note Date/Time June 27, 2023 1 0:36am [facility] [address] Hem/Onc Follow Up Note - OP Signed Patient: Leandra Fonseca MR#: [id number] : 1990 Acct:[id number] Age/Sex: 33 / F Type: REG RCR Copies to: Yudelka Lopez APRN, CONTROL BOARD OPERATOR-C~ Date of Service: 06/27/2023 Time of Service: [...] She believes she had this done at [facility] in [place] in 2019. We will request these records, and if they are not available, will plan repeat testing including hemoglobin electrophoresis. In themeantime check b12, folate, copper, epo, reticulocytes, haptoglobin, LDH, and christiano testing. B12 deficiency Will initiate weekly B12 injections x 4, then switch to monthly Follow Up Instructions: b12 weekly x 4 then monthly get [facility] records from 2019- hgb electrophoresis, thalassemia testing [...] cravings denies new complaints. Her periods are rust proofer now on control. Her heavy days she [...] for coordination of care (as documented) and wpqv-ig-zord counseling of patient and/or family. [facility] - Medical History Medical History: [...] <Electronically signed by BETTY Hough> 07/03/23 2205 [facility] Work Phone: 1(508) 896-982309-18-2023 Evaluation note* Encounter Date Diagnosis Assessment Notes Treatment Notes Treatment Clinical Notes May, Rash and nonspecific skin eruption (ICD-10 - R21) 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 Given return precautions. [employer] Other 07-18-2023 Progress note Author Kelly Hough [facility] April 03, 2023 9:16am Note Date/Time March 21, 2023 3:35p m [facility] [place] [address] Hem/Onc Follow Up Note - OP Signed Patient: Leandra Fonseca MR#: [id number] : 1990 Acct:[id number] Age/Sex: 32 / F Type: REG RCR Copies to: Yudelka Lopez APRN, CONTROL BOARD OPERATOR-C~ Subjective Date/Time of Service: Date of Service: [...] cravings denies new complaints. Her periods are rust proofer now on control. Her heavy days she [...] after visit and call with concerning results [facility] - Medical History Medical History: [...] 25 mg rectal suppository (Anusol-HC) 25 mg PA DAILY 2 weeks #12 ea 02/06/23 [Rx [...] for coordination of care (as documented) and bpbc-rm-[id number] counseling of patient and/or family. Dictated By: Kelly Hough APRN DD/ 1535 Signed By: <Electronically signed by BETTY Hough> 04/03/23 0916 [facility] Work Phone: 1(764) 309-217504-19-2023 Progress note Author Klely Hough [facility] January 03, 2023 2:03pm Note Date/Time January 02, 2023 10: 47am [facility] [address] [address] Hem/Onc Follow Up Note - OP Signed Patient: Leandra Fonseca MR#: [id number] : 1990 Acct:[id number] Age/Sex: 32 / F Type: REG RCR [...] related complaints. We discussed following up with Yudelak regarding these symptoms and going to the ER with worsening symptoms. She notes feeling better since she received her initial iron infusions, but energy is still not great She continues with some dyspnea and mild ice cravings denies new complaints. Her periods are rust proofer now on control. Her heavy days she [...] for coordination of care (as documented) and mynl-kk-obrz counseling of patient and/or family. Dictated By: Kelly Hough APRN DD/ 1046 Signed By: <Electronically signed by BETTY Hough> 01/03/23 1403 [facility] Work Phone: [phone] 777-748304-07-2023 Evaluation note* Encounter Date Diagnosis Assessment Notes Treatment Notes Treatment Clinical Notes Dec, Abdominal pain (ICD-10 - R10.9) Dec, Bloating (ICD-10 - R14.0) Dec, Nausea (ICD-10 - R11.0) [employer] Other 04-06-2023 Evaluation note* Encounter Date Diagnosis [...] - K92.1) Dec, Other Obtain records from [place] in 2019 for EGD/Colonoscopy [employer] Other 01-17-2023 Consult note Author Kelly Hough [facility] October 03, 2022 1:04pm Note Date/Time October 03, 2022 1 1:23[facility] [address] Hem/Onc Consult Note - OP Signed with Gena Patient: Leandra Fonseca MR#: [id number] : 1990 Acct:[id number] Age/Sex: 32 / F Type: REG RCR [...] going to the ER with worsening symptoms. [facility] - Medical History Medical History: [...] for coordination of care (as documented) and xesn-[id number]-aswh counseling of patient and/or family. Dictated By: Kelly Hough APRN DD/ 1123 Signed By: <Electronically signed by BETTY Hough> 10/03/22 1252 [facility] Work Phone: [phone]) 865-238107-18-2022 NotePROCEDURE DETAILS Preoperative Diagnosis: Left abdominal wall endometrioma Postoperative Diagnosis: Same Surgeon: Sly Crocker Resident/Fellow/Other Assistant County Attorney: Ariel Thompson Procedure: 1. LEFT ABDOMINAL WALL TUMOR RESECTION 8X5.5X4CM 2. MESH RECONSTRUCTION ANTERIOR RECTUS FASCIA 7X5CM DEFECT (Bard Soft Mesh) 3. COMPLEX CLOSURE OF A 8CM WOUND Anesthesia: Alan Pardo Estimated Blood Loss: 10ml Findings: 8X5.5X4CM SOFT TISSUE MASS WITH EN BLOC FASCIA AND OVERLYING SKIN PADDLE Specimens(s) Collected: yes, Left anterior wall soft tissue mass -short aiseauvt56:00, long lateral 300 Complications: None Drains and/or Catheters: 10Fr round drain - ESTEBAN Patient Returned To/Condition: PACU Operative Report: Indications: [...] of the procedure. Note Recipients: Yudelka Lopez, SWITCHGEAR REPAIRER-AIRPLANE WOODWORKER MALCOLM PENDLETON R - [id number] [] Attestation: Note Completion: Attending AttestationI was present for the entire procedure Electronic Signatures: Sly Crocker) (Signed 03-Apr-2022 17:55) Authored: Post-Operative Note, Chart Review, Note Completion Last Updated: 03-Apr-2022 17:55 by Sly Crocker)[facility]07-18-2022 NoteHistory & Physical Reviewed: /Lactating: Are You [...] the note. I personally evaluated the patient [id number] Electronic Signatures: Miguel Crawford (Resident)) (Signed 03-Apr-2022 12:08) Authored: History & Physical Reviewed, ERAS, Consent, Note Completion Sly Crocker) (Signed 03-Apr-2022 14:42) Authored: Note Completion Co-Signer: History & Physical Reviewed, ERAS, Consent, Note Completion Last Updated: 03-Apr-2022 14:42 by Sly Crocker)[facility] + Plan note No data available for this section [facility] [place] Evaluation noteNo assessment information available [facility] Work Phone: Evaluation note* Diagnosis Onset Date Resolution Status Iron deficiency anemia due to chronic blood loss acute [facility] Work Phone: Evaluation note* Diagnosis Onset Date Resolution Status Abdominal pain [facility] Work Phone: Evaluation note* Diagnosis [...] specified as infective documented in this encounter [facility] HealthcareEvaluation note* Diagnosis 18 weeks gestation of LGSIL of cervix of undetermined significance Other headache syndrome Mood disorder (CMS/HCC) Unspecified episodic mood disorder documented in this encounter [facility] HealthcareEvaluation note* Diagnosis Onset Date Resolution Status Admit Date Iron deficiency anemia due t o chronic blood loss acute October 3:16pm [facility] Work Phone: Evaluation note* Diagnosis Acne vulgaris- Primary Other acne Other atopic dermatitis documented in this encounter [facility] HealthcareEvaluation note* Diagnosis Previous delivery affecting , antepartum- Primary Previous delivery, antepartum condition or complication History of pre-eclampsia in prior , currently in first trimester History of anemia Personal history of diseases of blood and blood-forming organs Choroid plexus cyst of fetus affecting care of mother, antepartum, fetus 1 [facility]* Diagnosis History of anemia- Primary Personal history of diseases of blood and blood-forming organs [facility]* Diagnosis Thalassemia alpha carrier- Primary [facility]* Diagnosis Thalassemia alpha carrier- Primary Abnormal genetic test during Family history of sickle cell trait Family history of DVT [facility]* Diagnosis Second trimester state, incidental 26 weeks gestation of Seen in emergency room Exposure to STD HSV (herpes simplex virus) infection Herpes simplex without mention of complication documented in this encounter [facility] HealthcareEvaluation note* Diagnosis Third trimester state, incidental 28 weeks gestation of documented in this encounter [facility] HealthcareEvaluation note* Diagnosis Third trimester state, incidental 30 weeks gestation of H/O pre-eclampsia in prior , currently H/O delivery, currently Request for sterilization documented in this encounter [facility] HealthcareEvaluation note* Diagnosis Thalassemia alpha carrier- Primary [...] in first trimester [facility] Diagnosis Third trimester state, incidental 32 weeks gestation of Nausea Nausea alone documented [facility]* Diagnosis 34 weeks gestation of Third trimester state, incidental documented in this encounter [facility]* Diagnosis Third trimester ([facility]) state, incidental documented in this encounter [facility]* Diagnosis Third trimester ([facility]) state, incidental 37 weeks gestation of ([facility]) HSV (herpes simplex virus) infection Herpes simplex without mention of complication Anemia, unspecified type Alpha thalassemia silent carrier Pre-eclampsia in third trimester ([facility]) documented in this encounter [facility]* Diagnosis Status post section Other postprocedural status documented in this encounter [facility]* Diagnosis Venous insufficiency- Primary Unspecified venous (peripheral) insufficiency documented in this encounter [facility]* Diagnosis 6 weeks follow-up ([facility]) Post depression Mental disorders of mother, complicating , childbirth, or the puerperium, unspecified as to episode of care Mood disorder Unspecified episodic mood disorder depression Mental disorders of mother, complicating , childbirth, or the puerperium, unspecified as to episode of care documented in this encounter [facility]* Diagnosis Encounter for IUD insertion Insertion of intrauterine contraceptive device documented in this encounter [facility]* Diagnosis Onset Date Resolution Status Admit Date Alpha thalassaemia minor acute May 22, 2025 3:28pm Anemia acute May 22, 2025 3:28pm Folate deficiency acute 2024 3:28pm Iron deficiency anemia due t o chronic blood loss acute May 3:28pm Vitamin B12 deficiency anemia acute May 22, 2025 3:28pm Iron deficiency anemia due t o chronic blood loss acute May 3:30pm [facility] Work Phone: History general Narrative - Reported* Type Description Date Medical History concussion Medical History IBS-C Surgical History C SECTION Hospitalization History see above [employer] Other History of Present illness Narrative* Ms. [...] sensorimotor deficits * Extremities: No leg swelling [facility] Work Phone: History of Present illness [...] to the telephone nature of this visit. [facility] Work Phone: History of Present illness Narrative* Gabino Blandon, DPM - 04/20/2025 3:10 PM EDT Patient: Leandra Fonseca : 1990 PCP: [facility] Provider MD Franco SUBJECTIVE This is a 34 y.o. female that presents today for a chief complaint of swelling to bilateral ankles as the day progresses and denies any pain to her calf regions. Patient has just had a baby 3 weeks ago and noticed increased swelling during the hot days over the last 3 weeks but has decreased. She notes swelling particularly as the day progresses and states it has been slowly improving. Allergies: Allergies Allergen Reactions Labetalol Other, Shortness of breath and Unknown Other Reaction(s): Dizziness, loopiness, burning sensation in chest Other Reaction(s): Difficulty Breathing Cefdinir Other Reaction(s): Unknown Reaction Methimazole Other Reaction(s): throat closing Other Reaction(s): anaphylaxis Labetalol Hcl Hives Past Medical History: Past Medical History: Diagnosis Date Abnormal results of thyroid function studies Acid reflux 02/2017 [facility] Alpha thalassemia silent carrier Anemia Endometriosis Fibroid, uterine History of anemia History of hyperthyroidism Hypothyroidism Irregular menses Menometrorrhagia Nontoxic multinodular goiter Overweight (BMI 25.0-29.9) Syncope 06/2016 [facility] Varicella zoster Vitamin D deficiency Medications: Current Outpatient Medications: valACYclovir (Valtrex) 500 MG tablet, Take 1 tablet (500 mg) by mouth Daily, Disp: 30 tablet, Rfl: 11 venlafaxine XR (Effexor XR) 75 MG 24 hr capsule, Take 1 capsule (75 mg) by mouth Daily Do not crushor chew., Disp: 30 capsule, Rfl: 11 Social History: Social History Socioeconomic History Marital status: Unmarried Spouse name: Not on file Number of children: Not on file Years of education: Not on file Highest education level: Not on file Occupational History Not on file Tobacco Use Smoking status: Never Smokeless tobacco: Never Vaping Use Vaping status: Never Used Substance and Sexual Activity Alcohol use: Yes Alcohol/week: 1.0 standard drink of alcohol Types: 1 Glasses of wine per week Drug use: Never Sexual activity: Yes Partners: Male control/protection: None Other Topics Concern Not on file Social History Narrative Not on file Social Drivers of Health Financial Resource Strain: Not on file Food Insecurity: No Food Insecurity (11/21/2024) Received from [facility] Hunger Screening Within the past 12 months we worried whether our food would run out before we got money to buy more.: Never True Within the past 12 months the food we bought just didn't last and we didn't have money to get more.: Never True Transportation Needs: Not on file Physical Activity: Not on file Stress: Not on file Social Connections: Not on file Intimate Partner Violence: Not on file Housing Stability: Not on file ROS: General: denies fever, chills, fatigue, malaise Gastrointestinal: denies abdominal pain, ulcers, or changes in appetite or bowel habits Musculoskeletal: denies arthritis, denies loss of strength, pain to hip, knees, back Cardiovascular: denies CP, palpitations, irregular rhythms OBJECTIVE LE EXAM: DERM: Positive hair growth to b/l feet with good skin turgor noted. Negative openings in skin. +1 pitting edema to bilateral ankles VASC: Palpable pedal pulsed b/l with warm to cool tibia to toes b/l NEURO: Gross sensation intact digits 1-10 and b/l feet ORTHO: +5/5 DF/PF/IN/EV right, +5/5 DF/PF/IN/EV left. 20 degrees inversion and 10 degrees eversion STJ b/l. Ankle ROM less than 10 degrees b/l. Negative pain on palpation to bilateral calf regions XRAY: US: ASSESSMENT 1. Venous insufficiency PLAN Visit spent with patient education on condition and treatment of condition. Pt to continue with elevation of feet while resting or NWB. Discussed compression hose and the use of stockings for edema. Discussed condition in detail. Recommendation for ubnd-dsg-taihwrv compression stockings at this time and may consider prescription stockings in the future. Gabino Blandon DPM documented in this encounterSaint Joseph Hospital WestHospital Discharge instructions Additional Instructions If your symptoms return/worsen or you develop any further concerns or symptoms please see your doctor or return to the emergency department immediately.[facility] Work Phone: Hospital Discharge instructions Additional Instructions Follow-up with your primary care doctor Return to ED if you develop worsening symptoms or concernsSt[facility] Work Phone: Hospital Discharge instructions Additional Instructions Return for worsening symptoms [facility] Work Phone: Hospital Discharge instructions No data available for this section [facility] [place] [facility] Discharge instructions Additional Instructions We evaluated you for your symptoms. Your workup here was unremarkable. Please use the nausea medicine as prescribed. Please follow closely with your primary doctor. Please return to the emergency department if you develop any worsening or concerning symptoms. [facility] Work Phone: InstructionsNot on filedocumented in this encounter [facility]Not on filedocumented in this encounter [facility] SystemInstructionsNot on filedocumented in this encounter [facility] SystemInstructionsNot on filedocumented in this encounter [facility] SystemInstructionsNot on filedocumented in this encounter [facility] SystemInstructionsNot on filedocumented in this encounter [facility] SystemProgress note No data available for this section [facility] [place] Reason for referral (narrative)No reason for referral information availableSt. Francis Hospital Work Phone: Summary Purpose Family History No Family History [...] 10, 2024 3:16pm Chief Complaint Admit Date E61.1 January 28, 2025 8:26a m sore throat, ear pain February 01, 2025 11: 21am 31 wks iup sore throat February 01, 2025 1: 22pm , March 25, 2025 1:07p m Reason for Visit Admit Date Headache in February 01, 2025 11: 21am Chief Complaint Admit Date , March 25, 2025 1:07p m SOB, Chest Pain May 05, 2025 12 :30am Chief Complaint Admit Date , March 25, 2025 1:07p m SOB, Chest Pain May 05, 2025 12 :30am f/u no show on 03/13, pt to do labs 05/07May 22, 2025 3:28pm Iron Deficiency Anemia May 22 3:30pm Reason for Visit Admit Date Alpha thalassaemia minor May 22, 2025 3:28pm Anemia May 22, 2025 3:28pm Folate deficiency May 22, 2025 3:28pm Iron deficiency anemia due to chronic bl ood loss May 22, 2025 3:28pm Vitamin B12 deficiency anemia May 22, 2025 3:28pm Iron deficiency anemia due to chronic bl ood loss May 22, 2025 3:30pm Additional Source Comments INFORMATION SOURCE (unrecogn ized section and content) DATE CREATED AUTHOR 04/07/[address] [facility] DATE CREATED AUTHOR AUTHOR'S ORGANIZ ATION 04/23/2022 [employer] DATE CREATED AUTHOR AUTHOR'S ORGANIZ ATION 04/28/2022 [facility] DATE CREATED AUTHOR AUTHOR'S ORGANIZ ATION 05/16/2022 [facility] DATE CREATED AUTHOR AUTHOR'S ORGANIZ ATION 12/21/2022 [facility] DATE CREATED AUTHOR AUTHOR'S ORGANIZ ATION 12/13/2024 [facility] DATE CREATED AUTHOR AUTHOR'S ORGANIZ ATION 01/28/2025 [facility] DATE CREATED AUTHOR AUTHOR'S ORGANIZ ATION 05/07/2025 [facility] DATE CREATED AUTHOR AUTHOR'S ORGANIZ ATION 05/23/2025 [facility] DATE CREATED AUTHOR AUTHOR'S ORGANIZ ATION 06/11/2025 [facility] Care Teams (unrecognized sec tion and content) Team Status: Active Member Role Status Dates Yudelka Lopez APRN CONTROL BOARD OPERATOR-C Primary Care Provider Act klever Team Status: Inactive Member Role Status Dates Yudelka Lopez APRN CONTROL BOARD OPERATOR-C Primary Care Provider Act klever Start: July 14, 2024 End: July 14, 2024 Larry Underwood PA-C Attending Provider Active St art: July 14, 2024 End: July 14, 2024 Team Status: Active Member Role Status Dates Yudelka Lopez , SWITCHGEAR REPAIRER CONTROL BOARD OPERATOR-C Primary Care Provider, [facility] Provider Active Kelly Hough , SWITCHGEAR REPAIRER Attending Provider Acti ve Team Status: Inactive Member Role Status Dates Yudelka Lopez SWITCHGEAR REPAIRER CONTROL BOARD OPERATOR-C Primary Care Provider Act kleveralbino Horton MD Attending Provider Active Team Status: Inactive Member Role Status Dates Yudelka Lopez SWITCHGEAR REPAIRER CONTROL BOARD OPERATOR-C Primary Care Provider Act kleveralbino Vega PA-C Emergency Provider Active Team Status: Active Member Role Status Dates Yudelka Lopez SWITCHGEAR REPAIRER CONTROL BOARD OPERATOR-C Primary Care Provider, At tending Provider Active Team Status: Inactive Member Role Status Dates Yudelka Lopez SWITCHGEAR REPAIRER CONTROL BOARD OPERATOR-C Primary Care Provider Act kleveralbino Shanks MD Attending Provider Active Dayne Horton MD Referring Provider Active Team Status: Inactive Member Role Status Dates Yudelka Lopez SWITCHGEAR REPAIRER CONTROL BOARD OPERATOR-C Primary Care Provider, At tending Provider Active Team Status: Inactive Member Role Status Dates Yudelka Lopez SWITCHGEAR REPAIRER CONTROL BOARD OPERATOR-C Primary Care Provider Act kleveralbino Silva , DO Emergency Provider Active Team Status: Inactive Member Role Status Dates Yudelka Lopez SWITCHGEAR REPAIRER CONTROL BOARD OPERATOR-C Primary Care Provider Act klever Sly Crocker MD Attending Provider Active Team Status: Inactive Member Role Status Dates Yudelka Lopez APRN CONTROL BOARD OPERATOR-C Primary Care Provider Act kleveralbino Vega , DO Emergency Provider Active Team Status: Inactive Member Role Status Dates Yudelka Lopez SWITCHGEAR REPAIRER CONTROL BOARD OPERATOR-C Primary Care Provider Act klever Chris Greenwood , Emergency Provider Active Team Status: Inactive Member Role Status Dates Yudelka Lopez SWITCHGEAR REPAIRER CONTROL BOARD OPERATOR-C Primary Care Provider Act kleveralbino Serrano Jr, MD Emergency Provider Active Team Status: Inactive Member Role Status Dates Yudelka Lopez SWITCHGEAR REPAIRER CONTROL BOARD OPERATOR-C Primary Care Provider Act kleveralbino Silva , DO Emergency Provider Active Vicky Fuentes DO RES Active Team Status: Inactive Member Role Status Dates Yudelka Lopez SWITCHGEAR REPAIRER CONTROL BOARD OPERATOR-C Primary Care Provider Act klever Kip [place] , CONTROL BOARD OPERATOR-C Attending Provider Active Team Status: Inactive Member Role Status Dates Jim Vega , DO Emergency Provider Active Yudelka Lopez APRN CONTROL BOARD OPERATOR-C Primary Care Provider Act klever Team Status: Inactive Member Role Status Dates Yudelka Lopez APRN CONTROL BOARD OPERATOR-C Primary Care Provider Act klever Jose Shanks MD Attending Provider Active Team Status: Inactive Member Role Status Dates Yudelka Lopez APRN CONTROL BOARD OPERATOR-C Attending Provider Active Team Status: Inactive Member Role Status Dates Yudelka Loraalbino Lopez APRN CONTROL BOARD OPERATOR-C Primary Care Provider Act klever Start: July 14, 2024 End: July 14, 2024 Sarah Blandon DO Emergency Provider Active Start: July 14, 2024 End: July 14, 2024 Lety Dougherty DO RES Active Sta rt: July 14, 2024 End: July 14, 2024 Team Status: Active Member Role Status Dates Yudelka Griffinalbino Lopez APRN CONTROL BOARD OPERATOR-C Primary Care Provider Act klever Start: August 06, 2024 Marvin Serrano Jr, MD Emergency Provider Active Start: August 06, 2024 Julián Naqvi MD Admit Provide r, Attending Provider Active Start: August 06, 2024 Command And Control Specialist Relationship Specialty Start Date End Date Sarah Lopez DO [address] [place] [address] [phone] Referring Physician Emergency Medicine 02/18/23 Command And Control Specialist Relationship Specialty Start Date End Date Sarah Lopez DO [address] [place] [address] [phone] Referring Physician Emergency Medicine 02/18/23 Command And Control Specialist Relationship Specialty Start Date End Date Sarah Lopez DO [address] [place] [address] [phone] Referring Physician Emergency Medicine 02/18/23 Command And Control Specialist Relationship Specialty Start Date End Date Sarah Lopez DO [address] [place] [address] [phone] Referring Physician Emergency Medicine 02/18/23 Command And Control Specialist Relationship Specialty Start Date End Date Sarah Lopez DO [facility] [place], [place] [phone] Referring Physician Emergency Medicine 02/18/23 Command And Control Specialist Relationship Specialty Start Date End Date Sarah Lopez DO [facility] [place], [place] [phone] Referring Physician Emergency Medicine 02/18/23 Command And Control Specialist Relationship Specialty Start Date End Date Sarah Lopez DO [address] [place] [address] [phone] Referring Physician Emergency Medicine 02/18/23 Command And Control Specialist Relationship Specialty Start Date End Date Sarah Lopez DO [address] [place] [address] [phone] Referring Physician Emergency Medicine 02/18/23 Command And Control Specialist Relationship Specialty Start Date End Date Sarah Lopez DO [address] [place] [address] [phone] Referring Physician Emergency Medicine 02/18/23 Command And Control Specialist Relationship Specialty Start Date End Date Sarah Lopez DO [address] [place] [address] [phone] Referring Physician Emergency Medicine 02/18/23 Team Status: Inactive Member Role Status Dates Malcolm Pendleton DO Attending Provider Active Start : September 11, 2024 End: September 11, 2024 Team Status: Inactive Member Role Status Dates Ingrid Esquivel APRN Attending Provider Active Start: November 10, 2024 End: November 10, 2024 Yudelka Lopez APRN CONTROL BOARD OPERATOR-C Primary Care Provider Act klever Start: November 10, 2024 End: November 10, 2024 Team Status: Active Member Role Status Dates Yudelka Lopez APRN CONTROL BOARD OPERATOR-C Referring Provider Active Start: November 10, 2024 Arianasandy Hough APRN Attending Provider Active Start: October Alfie Matthews MD Primary Care Provider Active S tart: November 10, 2024 Command And Control Specialist Relationship Specialty Start Date End Date Sarah Lopez [address] [place] [address] Referring Physician Emergency Medicine 02/18/23 Command And Control Specialist Relationship Specialty Start Date End Date No Pcp, [place] [address] PCP - General Family Medicine 02/21/24 Command And Control Specialist Relationship Specialty Start Date End Date No Pcp, [place] [address] PCP - General Family Medicine 02/21/24 Command And Control Specialist Relationship Specialty Start Date End Date No Pcp, [place] [address] PCP - General Family Medicine 02/21/24 Command And Control Specialist Relationship Specialty Start Date End Date No Pcp, [place] [address] PCP - General Family Medicine 02/21/24 Command And Control Specialist Relationship Specialty Start Date End Date No Pcp, [place] [address] PCP - General Family Medicine 02/21/24 Command And Control Specialist Relationship Specialty Start Date End Date Sarah Lopez DO [address] [place] [address] Referring Physician Emergency Medicine 02/18/23 Command And Control Specialist Relationship Specialty Start Date End Date Alejandrina LopezraDO [address] [place] [address] Referring Physician Emergency Medicine 02/18/23 Command And Control Specialist Relationship Specialty Start Date End Date Alejandrina LopezraDO [facility] [place] [address] Referring Physician Emergency Medicine 02/18/23 Command And Control Specialist Relationship Specialty Start Date End Date Sarah Lopez DO [address] [place] [address] Referring Physician Emergency Medicine 02/18/23 Command And Control Specialist Relationship Specialty Start Date End Date No Pcp, [place] [address] PCP - General Family Medicine 02/21/24 Command And Control Specialist Relationship Specialty Start Date End Date No Pcp, [place] [address] PCP - General Family Medicine 02/21/24 Team Status: Active Member Role Status Dates PHYSICIAN NO FAMILY Primary Care Provider Active Team Status: Inactive Member Role Status Dates Priscilla Warren PA-C Attending Provider Active Sta rt: January 28, 2025 End: January 28, 2025 PHYSICIAN NO FAMILY Primary Care Provider Active Start: January 28, 2025 End: January 28, 2025 Command And Control Specialist Relationship Specialty Start Date End Date No Pcp, [place] [address] PCP - General Family Medicine 02/21/24 Command And Control Specialist Relationship Specialty Start Date End Date Sarah Lopez DO [address] [place] [address] Referring Physician Emergency Medicine 02/18/23 Command And Control Specialist Relationship Specialty Start Date End Date No Pcp, [place] [address] PCP - General Family Medicine 02/21/24 Team Status: Active Member Role Status Dates NON STAFF Primary Care Provider Active Team Status: Inactive Member Role Status Dates Luisa Wick APRN Attending Provider Active Sta rt: February 01, 2025 End: February 01, 2025 Yudelka Lopez APRN CONTROL BOARD OPERATOR-C Primary Care Provider Act klever Start: February 01, 2025 End: February 01, 2025 Team Status: Inactive Member Role Status Dates Yudelka Lopez APRN CONTROL BOARD OPERATOR-C Primary Care Provider Act klever Start: February 01, 2025 End: February 01, 2025 Jim Vega DO Emergency Provider Active Sta rt: February 01, 2025 End: February 01, 2025 Team Status: Inactive Member Role Status Dates Malcolm Pendleton DO Attending Provider Active Start : March 25, 2025 End: March 25, 2025 NON STAFF Primary Care Provider Active Start: March 25, 2025 End: March 25, 2025 Command And Control Specialist Relationship Specialty Start Date End Date Unallocated, [place]key, [address] [place], [place] [id number] PCP - General Family Medicine 04/20/25 Sarah Lopez DO [facility] [place] [address] Referring Physician Emergency Medicine 02/18/23 Command And Control Specialist Relationship Specialty Start Date End Date Unallocated, Shagufta Jensen MD [facility] [place] [address] PCP - General Family Medicine 04/20/25 Sarah Lopez DO [address] [place] [phone] Referring Physician Emergency Medicine 02/18/23 Team Status: Inactive Member Role Status Dates PHYSICIAN NO FAMILY Primary Care Provider Active Start: May 05, 2025 End: May 05, 2025 Leandra Kidd MD Emergency Provider Active Start: May 05, 2025 End: May 05, 2025 Command And Control Specialist Relationship Specialty Start Date End Date Unallocated, Shagufta Jensen MD [address] [place] [address] [place] [address] PCP - General Family Medicine 04/20/25 Sarah Lopez DO [address] [place] [phone] Referring Physician Emergency Medicine 02/18/23 Command And Control Specialist Relationship Specialty Start Date End Date Unallocated, Shagufta Jensen MD [address] [facility] [place] [address] PCP - General Family Medicine 04/20/25 Sarah Lopez DO [address] [place] [phone] Referring Physician Emergency Medicine 02/18/23 Team Status: Inactive Member Role Status Dates PHYSICIAN NO FAMILY Primary Care Provider Active Start: May 22, 2025 End: May 22, 2025 NADYA Sanon Attending Provider Active Start: May 22, 2025 End: May 22, 2025 Team Status: Active Member Role Status Dates Yudelka Lopez APRN CONTROL BOARD OPERATOR-C Referring Provider Active Start: May 22, 2025 Arianasandy Hough APRN Attending Provider Active Start: May Alfie Matthews MD Primary Care Provider Active S tart: May 22, 2025 Goals (unrecognized section and content) Goals may [...] this encounterNot on filedocumented as of this encounterGoals may be documented in an alternate sectionGoals may be documented in an alternate section REASON FOR VISIT (unrecogniz ed section and content) Reason Comments Amenorrhea Reason Comments Routine Visit Reason Comments Follow-up Reason Comments Alpha Thal Carrier Specialty Diagnoses / Procedures Referred By Contac t Referred To Contact Maternal and Medicine Diagnoses 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 Pt states it had been burning for a few days and continues burning. Patient was dx w/genital herpes and discharged patient w/rx for 1,000 mg Valtrex BID for 10 days and to f/up w/OB doctor. Reason Comments Post-op Visit Reason Comments Foot Pain Reason Comments Care Reason Comments IUD insertion FOR RECORDS PERTAINING TO PATIENTS WHO ARE [...] BE BASED ON THE PRIMARY CLINICAL RECORDS. At [facility]. provides no warranty or guarantee of the accuracy or completeness of information in this document.
== END 2025-06-30 15:23 | disposition home or self-care (01) ==
LOC: LAB 15:22
PROVIDERS: Visit Provider Obstetrics & Gynecology
DX: R87.89 Other abnormal findings in specimens from female genital organs (principal)
CPT/HCPCS: 87624; 88175